=== PATIENT | male | born 1955 | race Caucasian/White ===

== ENCOUNTER 2023-07-22 09:26 | Inpatient (IN) | payer OTHER, SELFPAY ==
[2023-07-22] VITALS (21 sets, daily range): BP systolic 139–156; BP diastolic 57–87; PULSE 94–122; RESP 13–23; TEMP 36.3–36.7; O2SAT 91–96; BMI 35.1
--- NOTE | 2023-07-22 09:32 | XR_ITS ---
[place] [id number] Patient Name: DEMARCUS CALDERON MRN: [id number] date: 1955 Sex: M Assigned Patient Location: ER Current Patient Location: ER Accession/Order Number: [id number] Exam Date: 07/22/2023 09:36 Report Date: 07/22/2023 09:55 At the request of: CELIA ROJAS Procedure: XR chest 1V EXAM: XR chest 1V HISTORY: sob COMPARISON: CT chest 02/18/2018 TECHNIQUE: AP upright chest x-ray FINDINGS: Lungs are clear without infiltrate or edema. Heart size magnified within normal limits for technique. No pleural effusion or pneumothorax. XR/XR chest 1V IMPRESSION: Negative chest x-ray, no acute disease. Electronically authenticated by: MELISSA CONRAD Date: 07/22/2023 09:55
--- NOTE | 2023-07-22 09:32 | ECG_ITS ---
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
[2023-07-22 10:00] LABS: Basophils Absolute Auto 0.1 10^3/uL (0.0-0.1); Eosinophils Percent Auto 14.4 % (0.9-7.0); Hematocrit 42.4 % (42.0-54.0); Hemoglobin 14.6 g/dL (14.0-18.0); Immature Granulocytes Abs Auto 0.01 10^3/uL (0.00-0.03); Immature Granulocytes Pct Auto 0.1 % (0.0-0.5); Lymphocytes Absolute Auto 1.6 10^3/uL (1.2-3.8); Lymphocytes Percent Auto 22.2 % (20.5-60.0); Mean Corpuscular HGB Conc 34.4 g/dL (29.9-35.2); Mean Corpuscular Volume 87.2 fL (80.0-94.0); Mean Platelet Volume 9.8 fL (9.5-13.5); Monocytes Absolute Auto 0.6 10^3/uL (0.3-0.8); Monocytes Percent Auto 9.1 % (1.7-12.0); Neutrophils Absolute Auto 3.8 10^3/uL (1.4-6.5); Neutrophils Percent Auto 53.2 % (43.0-75.0); Platelet Count 184 10^3/uL (150-450); Red Blood Count 4.86 10^6/uL (4.70-6.10); Red Cell Distribution Width 13.5 % (11.0-15.0); White Blood Count 7.1 10^3/uL (4.0-11.0)
--- NOTE | 2023-07-22 10:06 | ED.SOB1 ---
HPI - SOB/Dyspnea General Chief Complaint: Shortness of Breath/Dyspnea Stated Complaint: Shortness of Breath Time Seen by Provider: 07/22/23 09:31 Source: patient Mode of arrival: Wheelchair Limitations: no limitations History of Present Illness HPI Narrative: The patient presented to us with shortness of breath that has been longstanding at least for the last couple weeks the patient mentioned that since April he has been on prednisone as well as antibiotic multiple times for shortness of breath and exertion, the patient does have a history of COPD as well as history of coronary artery disease s/p multiple stents, he denies any chest pain at any time he mentioned that he has been having some significant sputum production, in addition to shortness of breath on exertion and his shortness of breath also will get worse when he lay back to sleep. The patient denies any acid reflux although he did mention that he have a history of that but he take Protonix 20 mg daily as a prophylaxis.. There is no abdominal pain no fever no chills no exposure to anybody with similar symptoms. Related Data Home Medications Medication Instructions Recorded Confirmed carvedilol 6.25 mg tablet 6.25 mg PO Q12H 07/22/23 07/22/23 losartan 50 mg tablet 50 mg PO Q24H 07/22/23 07/22/23 omeprazole 20 mg capsule,delayed 20 mg PO Q24H 07/22/23 07/22/23 release tamsulosin 0.4 mg capsule 0.4 mg PO Q24H 07/22/23 07/22/23 Allergies Allergy/AdvReac Type Severity Reaction Status Date / Time codine AdvReac Intermediate Uncoded 07/22/23 09:34 Review of Systems ROS Status of ROS 10 or more systems reviewed and unremarkable except as noted in history and below [facility] Social History Smoking status: Former smoker Exam Narrative Exam Narrative: Nurses notes and vital signs reviewed and patient is not hypoxic. General: Well-appearing and in no apparent distress. Skin: Warm, dry, no pallor noted. No rash. Head: Normocephalic, atraumatic. Neck: Supple, non-tender. Eye: Pupils are equal, round and EOMI. No scleral icterus. Ears, Nose, Mouth, and Throat: TM are clear, no nasal mucosal hypertrophy. Oral mucosa is moist, no posterior oropharynx erythema, uvula is mid-line Cardiovascular: Regular Rate and Rhythm without murmur, gallop or rub. Respiratory: The patient is showing mild distress leaning forward but not using accessory muscles and he also had rhonchi heard in both lung chavarria and distant breathing sounds. With a wet cough. Chest Wall: no tenderness Back: No midline thoracic or lumbar vertebral tenderness. No CVA tenderness Musculoskeletal: normal ROM, no calf or popliteal tenderness, no lower extremity edema/swelling GI: Abdomen is soft, non-distended. Normal bowel sounds. No masses appreciated. No tenderness to palpation. No rebound, guarding, or rigidity noted. Neurological: A&O x4. No cranial nerve dysfunction observed. No truncal ataxia. Moves all extremities. Sensation intact. Psychiatric: Cooperative and interactive. Normal mood and affect. Constitutional Vital Signs, click to edit/add: Last Vital Signs Temp 97.4 F L 07/22/23 09:34 Pulse 102 H 07/22/23 10:50 Resp 18 07/22/23 10:50 BP 139/83 07/22/23 10:47 Pulse Ox 92 L 07/22/23 10:50 O2 Del Method Room Air 07/22/23 09:34 Course Vital Signs Vital signs: Vital Signs Temperature 97.4 F L 07/22/23 09:34 Pulse Rate 99 H 07/22/23 09:34 Respiratory Rate 22 07/22/23 09:34 Blood Pressure 147/86 H 07/22/23 09:34 Pulse Oximetry 93 L 07/22/23 09:34 Oxygen Delivery Method Room Air 07/22/23 09:34 Temperature 97.4 F L 07/22/23 09:34 Pulse Rate 102 H 07/22/23 10:50 Respiratory Rate 18 07/22/23 10:50 Blood Pressure 139/83 07/22/23 10:47 Pulse Oximetry 92 L 07/22/23 10:50 Oxygen Delivery Method Room Air 07/22/23 09:34 MDM - SOB/Dyspnea MDM Narrative Medical decision making narrative: The patient EKG showing sinus rhythm with a heart rate of [address] elevation or depression. The patient chest x-ray showed no acute pathology and the CBC and chemistry as well as troponin shows no acute pathology as well. CT chest obtained shows fibrosis but no infiltrate, The patient has been treated with p.o. medication [id number] prednisone as well as azithromycin and doxycycline the patient will be admitted for further evaluation of COPD management and IV steroid treatment as he failed outpatient treatment The patient case discussed with and she agreed with above-mentioned plan Lab Data Labs: Lab Results 07/22/23 Range/Units 09:51 WBC 7.1 (4.0-11.0) 10^3/uL RBC 4.86 (4.70-6.10) 10^6/uL Hgb 14.6 (14.0-18.0) g/dL Hct 42.4 (42.0-54.0) % MCV 87.2 (80.0-94.0) fL MCH 30.0 (25.9-34.0) pg MCHC 34.4 (29.9-35.2) g/dL RDW 13.5 (11.0-15.0) % Plt Count 184 (150-450) 10^3/uL MPV 9.8 (9.5-13.5) fL Neut % (Auto) 53.2 (43.0-75.0) % Lymph % (Auto) 22.2 (20.5-60.0) % [place] % (Auto) 9.1 (1.7-12.0) % Eos % (Auto) 14.4 H (0.9-7.0) % Baso % (Auto) 1.0 (0.2-2.0) % Neut # (Auto) 3.8 (1.4-6.5) 10^3/uL Lymph # (Auto) 1.6 (1.2-3.8) 10^3/uL [place] # (Auto) 0.6 (0.3-0.8) 10^3/uL Eos # (Auto) 1.0 H (0.0-0.7) 10^3/uL Baso # (Auto) 0.1 (0.0-0.1) 10^3/uL Abs Immat Gran (auto) 0.01 (0.00-0.03) 10^3/uL Imm/Tot Granulo (auto) 0.1 (0.0-0.5) % PT 10.8 (9.0-11.6) sec INR 1.02 Sodium 137 (136-145) mmol/L Potassium 4.3 (3.5-5.1) mmol/L Chloride 102 (98-107) mmol/L Carbon Dioxide 25.5 (21.0-32.0) mmol/L Anion Gap 13.8 BUN 11.0 (7.0-18.0) mg/dL Creatinine 1.11 (0.70-1.30) mg/dL Est GFR ( Amer) >60 (>=60) Est GFR (Non-Af Amer) >60 (>=60) BUN/Creatinine Ratio 9.9 Glucose 114 H (74-106) mg/dL Calcium 8.9 (8.5-10.1) mg/dL Total Bilirubin 0.6 (0.2-1.0) mg/dL AST 34 (15-37) U/L ALT 48 (16-63) U/L Alkaline Phosphatase 63 (46-116) U/L Troponin I High Sens 28.0 (4.0-76.1) pg/mL NT-Pro-B Natriuret Pep 305.0 (<=900.0) pg/mL Total Protein 7.3 (6.4-8.2) g/dL Albumin 3.8 (3.4-5.0) g/dL Globulin 3.5 g/dL Albumin/Globulin Ratio 1.1 Discharge Plan Discharge Chief Complaint: Shortness of Breath/Dyspnea Clinical Impression: Acute exacerbation of chronic obstructive pulmonary disease Patient Disposition: Admitted as Observation Time of Disposition Decision: 12:04 Condition: Good
--- NOTE | 2023-07-22 10:11 | CT_ITS ---
The [address] [address] Patient Name: DEMARCUS CALDERON MRN: [id number] date: 1955 Sex: M Assigned Patient Location: ER Current Patient Location: ER Accession/Order Number: [id number] Exam Date: 07/22/2023 10:40 Report Date: 07/22/2023 11:31 At the request of: CELIA ROJAS Procedure: CT chest wo con EXAM: CT chest wo con HISTORY: sob and cough COMPARISON: Chest x-ray 07/22/2023. CT chest 02/18/2018 and earlier. TECHNIQUE: CT chest noncontrast. Axial scans with reformatted coronal and sagittal images. Individualized dose reduction views for this exam. FINDINGS: Lungs: Peripheral interstitial density noted prominent the right upper and mid chest and at the lung bases. Mild progression since previous.. No consolidation or edema or other new/acute process. No suspicious focal lung lesion/mass. pleura: No effusion or pneumothorax. Cardiac vascular: High-density coronary material consistent with stents and/or plaque. Heart size within normal limits. Pericardial thickening anteriorly. No pericardial effusion. Mediastinum: No mass or adenopathy. No lower neck or axillary mass or adenopathy. No acute upper abdominal abnormality. CT/CT chest wo con IMPRESSION: No acute appearing abnormality. Interstitial lung density with mild progression since previous most consistent with areas of mild fibrosis. Electronically authenticated by: MEILSSA CONRAD Date: 07/22/2023 11:31
[2023-07-22 10:12] LABS: INR 1.02; Prothrombin Time 10.8 sec (9.0-11.6)
[2023-07-22] MEDS: IPRATROPIUM/ALBUTEROL SULFATE 3 ML AMPUL.NEB IH ×4 (10:17→23:24)
[2023-07-22 10:18] LABS: Alanine Aminotransferase 48 U/L (16-63); Albumin Globulin Ratio 1.1; Albumin Level 3.8 g/dL (3.4-5.0); Alkaline Phosphatase 63 U/L (46-116); Anion Gap 13.8; Aspartate Amino Transferase 34 U/L (15-37); BUN Creatinine Ratio 9.9; Bilirubin Total 0.6 mg/dL (0.2-1.0); Calcium 8.9 mg/dL (8.5-10.1); Carbon Dioxide 25.5 mmol/L (21.0-32.0); Chloride 102 mmol/L (98-107); Estimated GFR (African America >60 (>=60); Estimated GFR (Non-African Ame >60 (>=60); Globulin 3.5 g/dL; Glucose 114 mg/dL (74-106); Potassium 4.3 mmol/L (3.5-5.1); Sodium 137 mmol/L (136-145); Total Protein 7.3 g/dL (6.4-8.2)
[2023-07-22] MEDS: METHYLPREDNISOLONE SOD SUCC PF 125 MG/2 ML VIAL IVP (10:23)
[2023-07-22 11:09] LABS: Adenovirus NOT DETECTED (NOT DETECTE); Bordetella parapertussis NOT DETECTED (NOT DETECTE); Coronavirus 229E NOT DETECTED (NOT DETECTE); Coronavirus HKU1 NOT DETECTED (NOT DETECTE); Coronavirus NL63 NOT DETECTED (NOT DETECTE); Coronavirus OC43 NOT DETECTED (NOT DETECTE); Human Rhinovirus/Enterovirus NOT DETECTED (NOT DETECTE); Influenza A NOT DETECTED (NOT DETECTE); Influenza B NOT DETECTED (NOT DETECTE); Mycoplasma pneumoniae NOT DETECTED (NOT DETECTE); Parainfluenza Virus 1 NOT DETECTED (NOT DETECTE); Parainfluenza Virus 2 NOT DETECTED (NOT DETECTE); Parainfluenza Virus 3 NOT DETECTED (NOT DETECTE); Parainfluenza Virus 4 NOT DETECTED (NOT DETECTE); Respiratory Syncytial Virus NOT DETECTED (NOT DETECTE)
[2023-07-22 12:08] LABS: SARS-CoV-2 DETECTED (NOT DETECTE)
[2023-07-22 12:09] LABS: Human Metapneumovirus NOT DETECTED (NOT DETECTE)
--- NOTE | 2023-07-22 12:14 | PM.HP ---
H&P: HPI History of Present Illness Chief complaint: Shortness of Breath COPD EXACERBATION Narrative: patient is a 68-year-old male with past nuchal history of chronic obstructive pulmonary disease, hypertension, GERD, benign prostatic hypertrophy who presents to the hospital over having symptoms more than two weeks. He has been to his primary care physician, urgent care for a cough. He denies any fevers chills, slight shortness of breath because he has increased his nebulizer treatments and has increased using his albuterol inhaler at home. 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 He says he takes albuterol, Advair and Spiriva at home. Over the last few weeks has developed a productive cough to the point where he gets winded because he is coughing so much. He has been tried on oral steroids, doxycycline and azithromycin. He presented to the Emergency Room today because he just could not cough anymore. Patient's viral culture was positive for Covid. Patient was admitted for viral illness with chronic obstructive pulmonary disease exacerbation to the hospitalist service for further treatment. At the time of admission exam his is also present and states that his biggest complaint is his cough. He denies any chest pain, nausea vomiting or diarrhea. Review of Systems ROS Narrative ROS: a complete review of systems were reviewed with patient and are positive as below or listed in History of Chief Complaint. General: no fever, chills, night sweats Head: no headache, trauma, visual changes, nausea or vomiting Skin: no reported rashes, itching or sores Eyes: no blurriness of vision Ears: no reported hearing loss, vertigo, earache, or tinnitus Throat: no sore throat, hoarseness, swelling of neck, or tongue pain Heart: no chest pain Lungs:shortness of breath and cough GI: no diarrhea or vomiting/nausea Urinary: no urinary urgency, frequency or pain Neuro: no numbness or tingling HEM: no bleeding issues or bruising ENDO: no thyroid problems Psych: no anxiety or depression [facility] Medical History (Updated 07/22/23 @ 15:42 by Maria Isabel Adair DO) COPD (chronic obstructive pulmonary disease) ?J44.9 - Chronic obstructive pulmonary disease, unspecified (ICD-10) Bronchitis ?J40 - Bronchitis, not specified as acute or chronic (ICD-10) Emphysema of lung ?J43.9 - Emphysema, unspecified (ICD-10) Heart attack ?I21.9 - Acute myocardial infarction, unspecified (ICD-10) COPD exacerbation ?J44.1 - Chronic obstructive pulmonary disease with (acute) exacerbation (ICD-10) COVID-19 ?U07.1 - COVID-19 (ICD-10) Surgical History H/O heart artery stent ?Z95.5 - Presence of coronary angioplasty implant and graft (ICD-10) Family History Other Family history of cancer Social History Smoking status: Former smoker Highest level of school completed/degree received: high school graduate Meds Home Medications and Allergies Home Medications Medication Instructions Recorded Confirmed Type carvedilol 6.25 mg tablet 6.25 mg PO Q12H 07/22/23 07/22/23 History losartan 50 mg tablet 50 mg PO Q24H 07/22/23 07/22/23 History omeprazole 20 mg capsule,delayed 20 mg PO Q24H 07/22/23 07/22/23 History release tamsulosin 0.4 mg capsule 0.4 mg PO Q24H 07/22/23 07/22/23 History Allergies Allergy/AdvReac Type Severity Reaction Status Date / Time codine AdvReac Intermediate Uncoded 07/22/23 13:05 Exam Narrative Exam Narrative: General: Patient is alert, and oriented to person, place and time with normal affect, proper hygiene, central obesity Skin: no visible rashes, or ulcers Head: atraumatic, acephalic Eyes: PERRLA, no nystagmus present, conjunctiva clear, no scleral icterus Ears: normal gross auditory acuity Nose: symmetric, no discharge, no maxillary or frontal sinus tenderness Mouth/Throat: no erythema, exudate, or tonsillar enlargement, normal dentition Neck: no masses palpated, normal thyroid Heart: Normal rate and rhythm, no murmurs/rubs/gallops Lungs: audible wheezes, and crackles and diminished breath sounds all lung chavarria Abdomen: Normal audible bowel sounds, no distension, No palpable masses, no organomegaly, no rebound/guarding/ or rigidity Musculoskeletal: no swelling bilateral lower extremities Vascular: Normal carotid, radial, femoral, posterior tibial, and dorsalis pedis pulses Neuro: CN II-X grossly intact Constitutional Vital Signs, click to edit/add: Last Vital Signs Temp 97.4 F L 07/22/23 09:34 Pulse 102 H 07/22/23 10:50 Resp 18 07/22/23 10:50 BP 139/83 07/22/23 10:47 Pulse Ox 92 L 07/22/23 10:50 O2 Del Method Room Air 07/22/23 09:34 Results Labs Labs: Short CBC 07/22/23 Range/Units 09:51 WBC 7.1 (4.0-11.0) 10^3/uL Hgb 14.6 (14.0-18.0) g/dL Hct 42.4 (42.0-54.0) % Plt Count 184 (150-450) 10^3/uL BMP 07/22/23 09:51 Sodium 137 Potassium 4.3 Chloride 102 Carbon Dioxide 25.5 BUN 11.0 Creatinine 1.11 Glucose 114 H Calcium 8.9 Liver Function 07/22/23 Range/Units 09:51 Total Bilirubin 0.6 (0.2-1.0) mg/dL AST 34 (15-37) U/L ALT 48 (16-63) U/L Alkaline Phosphatase 63 (46-116) U/L Albumin 3.8 (3.4-5.0) g/dL Assessment and Plan Assessment and Plan (1) COVID-19: Assessment and Plan: patient at this time is not requiring oxygen but is placed on telemetry. Given loading dose of Remdesivir 200 mg daily and will continue with 100 mg daily. (2) Acute exacerbation of chronic obstructive pulmonary disease: Assessment and Plan: secondary to #1, will place on Solu-Medrol 40 mg every 8 hours, scheduled DuoNeb this, scheduled budesonide twice a day, when necessary albuterol nebulizer treatments. Levaquin 500 mg daily.chest x-ray negative for acute pneumonia. (3) Hypertension: Assessment and Plan: continue losartan, Coreg (4) GERD (gastroesophageal reflux disease): Assessment and Plan: continue omeprazole Plan patient is a full code Will place on Lovenox for deep vein thrombosis prophylaxis Patient is in observation status and is not expected to cross more than two midnights for medically necessary hospital treatment
[2023-07-22] MEDS: LEVOFLOXACIN IN DEXTROSE 5 % 500 MG/100 ML PIGGYBACK 100 MG IV (14:40)
[2023-07-22] MEDS: 0.9 % SODIUM CHLORIDE 250 ML 10 ML IV (14:40)
[2023-07-22] MEDS: BENZONATATE 100 MG CAPSULE 200 MG PO ×2 (16:09→23:34)
[2023-07-22] MEDS: REMDESIVIR 200 MG in 0.9 % SODIUM CHLORIDE 250 ML 250 MG IV (16:09)
[2023-07-22] MEDS: ENOXAPARIN SODIUM 40 MG/0.4 ML SYRINGE SUBQ (17:26)
[2023-07-22] MEDS: METHYLPREDNISOLONE SOD SUCC PF 40 MG/ML VIAL IVP (17:26)
[2023-07-22] MEDS: CARVEDILOL 6.25 MG TABLET PO (20:46)
[2023-07-22] MEDS: BUDESONIDE 0.5 MG/2 ML AMPULE NEB IH (23:24)
[2023-07-23] VITALS (25 sets, daily range): BP systolic 150–173; BP diastolic 82–92; PULSE 70–111; RESP 18–20; TEMP 36.5–36.7; O2SAT 86–98
[2023-07-23] MEDS: METHYLPREDNISOLONE SOD SUCC PF 40 MG/ML VIAL IVP ×3 (02:30→17:22)
[2023-07-23] MEDS: IPRATROPIUM/ALBUTEROL SULFATE 3 ML AMPUL.NEB IH ×6 (03:57→23:13)
[2023-07-23 05:19] LABS: Basophils Percent Auto 0.1 % (0.2-2.0); Hematocrit 41.4 % (42.0-54.0); Hemoglobin 13.9 g/dL (14.0-18.0); Immature Granulocytes Abs Auto 0.05 10^3/uL (0.00-0.03); Immature Granulocytes Pct Auto 0.4 % (0.0-0.5); Lymphocytes Absolute Auto 1.1 10^3/uL (1.2-3.8); Lymphocytes Percent Auto 8.6 % (20.5-60.0); Mean Corpuscular HGB Conc 33.6 g/dL (29.9-35.2); Mean Corpuscular Hemoglobin 29.6 pg (25.9-34.0); Mean Corpuscular Volume 88.3 fL (80.0-94.0); Mean Platelet Volume 10.4 fL (9.5-13.5); Monocytes Absolute Auto 0.5 10^3/uL (0.3-0.8); Monocytes Percent Auto 3.8 % (1.7-12.0); Neutrophils Absolute Auto 11.4 10^3/uL (1.4-6.5); Neutrophils Percent Auto 87.1 % (43.0-75.0); Platelet Count 203 10^3/uL (150-450); Red Blood Count 4.69 10^6/uL (4.70-6.10); Red Cell Distribution Width 13.8 % (11.0-15.0); White Blood Count 13.1 10^3/uL (4.0-11.0)
[2023-07-23] MEDS: OMEPRAZOLE 20 MG CAPSULE.DR PO (05:31)
[2023-07-23 05:53] LABS: Alanine Aminotransferase 42 U/L (16-63); Albumin Level 3.5 g/dL (3.4-5.0); Alkaline Phosphatase 59 U/L (46-116); Anion Gap 18.2; Aspartate Amino Transferase 28 U/L (15-37); BUN Creatinine Ratio 12.1; Bilirubin Total 0.3 mg/dL (0.2-1.0); Calcium 9.2 mg/dL (8.5-10.1); Carbon Dioxide 22.1 mmol/L (21.0-32.0); Chloride 102 mmol/L (98-107); Estimated GFR (African America >60 (>=60); Estimated GFR (Non-African Ame >60 (>=60); Globulin 3.6 g/dL; Glucose 145 mg/dL (74-106); Potassium 4.3 mmol/L (3.5-5.1); Sodium 138 mmol/L (136-145); Total Protein 7.1 g/dL (6.4-8.2)
--- NOTE | 2023-07-23 07:28 | RESP.RT ---
Plaed on room air. SpO2 maintaining 94-96%
--- NOTE | 2023-07-23 08:47 | PM.PN ---
Progress Note: Subjective Subjective Interval history: patient reports cough is now dry. He denies any fevers but still continues to get some hot flashes at times. Still feels very tight and short of breath with his breathing. He feels slightly improved from yesterday but still struggling for deep breaths. is at bedside at the time of exam this morning she also notes some improvement. No nausea vomiting or diarrhea. New findings of rash in right axilla, he would like something for his nasal congestion he takes Flonase at home. Also sore throat today. Exam Narrative Exam Narrative: General: Patient is alert, and oriented to person, place and time, short of breath with talking Skin: fungal rash under right axilla and center of chest Head: atraumatic, acephalic Eyes: PERRLA, no nystagmus present, conjunctiva clear, no scleral icterus Ears: normal gross auditory acuity Neck: no masses palpated, normal thyroid Heart: Normal rate and rhythm, no murmurs/rubs/gallops Lungs: audible wheezes, and crackles and diminished breath sounds all lung chavarria, sounds worse than yesterday Abdomen: Normal audible bowel sounds, no distension, No palpable masses, no organomegaly, no rebound/guarding/ or rigidity Musculoskeletal: no swelling bilateral lower extremities Neuro: CN II-X grossly intact Constitutional Vital Signs, click to edit/add: Last Vital Signs Temp 97.7 F 07/23/23 06:00 Pulse 101 H 07/23/23 08:00 Resp 20 07/23/23 06:00 BP 160/82 H 07/23/23 06:00 Pulse Ox 95 07/23/23 08:00 O2 Del Method Nasal Cannula 07/23/23 07:06 O2 Flow Rate 2 07/23/23 07:06 Progress Note: Objective Labs Labs: Short CBC 07/22/23 07/23/23 Range/Units 09:51 04:11 WBC 7.1 13.1 H (4.0-11.0) 10^3/uL Hgb 14.6 13.9 L (14.0-18.0) g/dL Hct 42.4 41.4 L (42.0-54.0) % Plt Count 184 203 (150-450) 10^3/uL BMP 07/22/23 07/23/23 09:51 04:11 Sodium 137 138 Potassium 4.3 4.3 Chloride 102 102 Carbon Dioxide 25.5 22.1 BUN 11.0 12.0 Creatinine 1.11 0.99 Glucose 114 H 145 H Calcium 8.9 9.2 Liver Function 07/22/23 07/23/23 Range/Units 09:51 04:11 Total Bilirubin 0.6 0.3 (0.2-1.0) mg/dL AST 34 28 (15-37) U/L ALT 48 42 (16-63) U/L Alkaline Phosphatase 63 59 (46-116) U/L Albumin 3.8 3.5 (3.4-5.0) g/dL Progress Note: A&P Assessment and Plan (1) COVID-19: Assessment and Plan: given Remdesivir 200 mg daily and will continue with 100 mg daily. monitor for signs of worsening respiratory status, duonebs, opep therapy (2) Acute exacerbation of chronic obstructive pulmonary disease: Assessment and Plan: secondary to #1, will place on Solu-Medrol 40 mg every 8 hours, scheduled DuoNeb this, scheduled budesonide twice a day, when necessary albuterol nebulizer treatments. Levaquin 500 mg daily.chest x-ray negative for acute pneumonia. (3) Hypertension: Assessment and Plan: continue losartan, Coreg (4) GERD (gastroesophageal reflux disease): Assessment and Plan: continue omeprazole Plan patient is a full code Will place on Lovenox for deep vein thrombosis prophylaxis Given that patient is not improving clinically as fast as anticipated he will stay tonight for continued medical necessary care.
[2023-07-23] MEDS: LOSARTAN POTASSIUM 50 MG TABLET PO (08:52)
[2023-07-23] MEDS: LEVOFLOXACIN IN DEXTROSE 5 % 500 MG/100 ML PIGGYBACK 100 MG IV (08:52)
[2023-07-23] MEDS: BENZONATATE 100 MG CAPSULE 200 MG PO ×2 (08:52→16:39)
[2023-07-23] MEDS: CARVEDILOL 6.25 MG TABLET PO ×2 (08:52→20:27)
[2023-07-23] MEDS: TAMSULOSIN HCL 0.4 MG CAPSULE 0.400000000000000022 MG PO (08:52)
--- NOTE | 2023-07-23 08:52 | XR_ITS ---
[address] [address] Patient Name: DEMARCUS CALDERON MRN: [id number] date: 1955 Sex: M Assigned Patient Location: [place] Current Patient Location: [place] Accession/Order Number: [id number] Exam Date: 07/23/2023 08:45 Report Date: 07/23/2023 09:41 At the request of: BENJY MCKEON Procedure: XR chest 1V EXAM: XR chest 1V HISTORY: shortness of breath COMPARISON: None. TECHNIQUE: AP view of the chest. FINDINGS: The cardiomediastinal silhouette is normal. The lungs are clear. There is no pneumothorax. No pleural effusion is noted. The osseous structures are intact. XR/XR chest 1V IMPRESSION: No acute cardiopulmonary process. Electronically authenticated by: AKIN PERLA Date: 07/23/2023 09:41
[2023-07-23] MEDS: BUDESONIDE 0.5 MG/2 ML AMPULE NEB IH ×2 (10:18→23:13)
--- NOTE | 2023-07-23 11:45 | CM.NOTE ---
Rounds made with Dr. Adair, no discharge for pt today.
--- NOTE | 2023-07-23 14:57 | CM.NOTE ---
Medicare Outpatient Observation Notice discussed with pt and , both verbalizes understanding. Pt requests to sign. Paper signed, original given to pt and copy placed on pt's chart.
[2023-07-23] MEDS: FLUTICASONE PROPIONATE 50 MCG NASAL SPRAY 2 SPRAY NS (15:26)
[2023-07-23] MEDS: BENZOCAINE/MENTHOL SORE THROAT LOZENGE 1 LOZENGE PO (15:26)
[2023-07-23] MEDS: 0.9 % SODIUM CHLORIDE 250 ML 10 ML IV (15:26)
[2023-07-23] MEDS: NYSTATIN 100,000 UNITS/GRAM CREAM 15 GM TUBE 1 APPLIC TOPICAL ×2 (16:38→20:27)
[2023-07-23] MEDS: ENOXAPARIN SODIUM 40 MG/0.4 ML SYRINGE SUBQ (16:39)
[2023-07-23] MEDS: REMDESIVIR 100 MG in 0.9 % SODIUM CHLORIDE 100 ML 200 MG IV (16:39)
[2023-07-24] VITALS (23 sets, daily range): BP systolic 135–175; BP diastolic 71–110; PULSE 52–112; RESP 16–22; TEMP 36.3–36.8; O2SAT 90–95
[2023-07-24] MEDS: BENZONATATE 100 MG CAPSULE 200 MG PO ×3 (01:09→16:18)
[2023-07-24] MEDS: METHYLPREDNISOLONE SOD SUCC PF 40 MG/ML VIAL IVP ×3 (01:09→18:39)
[2023-07-24] MEDS: IPRATROPIUM/ALBUTEROL SULFATE 3 ML AMPUL.NEB IH ×6 (03:55→22:53)
[2023-07-24 05:22] LABS: Basophils Percent Auto 0.1 % (0.2-2.0); Eosinophils Percent Auto 0.1 % (0.9-7.0); Hematocrit 43.2 % (42.0-54.0); Hemoglobin 14.2 g/dL (14.0-18.0); Immature Granulocytes Pct Auto 0.6 % (0.0-0.5); Lymphocytes Absolute Auto 1.2 10^3/uL (1.2-3.8); Lymphocytes Percent Auto 7.2 % (20.5-60.0); Mean Corpuscular HGB Conc 32.9 g/dL (29.9-35.2); Mean Corpuscular Hemoglobin 29.3 pg (25.9-34.0); Mean Corpuscular Volume 89.3 fL (80.0-94.0); Mean Platelet Volume 10.5 fL (9.5-13.5); Monocytes Absolute Auto 0.8 10^3/uL (0.3-0.8); Neutrophils Absolute Auto 14.5 10^3/uL (1.4-6.5); Platelet Count 191 10^3/uL (150-450); Red Blood Count 4.84 10^6/uL (4.70-6.10); Red Cell Distribution Width 14.1 % (11.0-15.0); White Blood Count 16.7 10^3/uL (4.0-11.0)
[2023-07-24 05:42] LABS: Alanine Aminotransferase 40 U/L (16-63); Albumin Level 3.5 g/dL (3.4-5.0); Alkaline Phosphatase 60 U/L (46-116); Anion Gap 14.5; Aspartate Amino Transferase 37 U/L (15-37); BUN Creatinine Ratio 15.3; Bilirubin Total 0.3 mg/dL (0.2-1.0); Calcium 9.5 mg/dL (8.5-10.1); Carbon Dioxide 24.8 mmol/L (21.0-32.0); Chloride 102 mmol/L (98-107); Estimated GFR (African America >60 (>=60); Estimated GFR (Non-African Ame >60 (>=60); Globulin 3.4 g/dL; Glucose 153 mg/dL (74-106); Magnesium 2.3 mg/dL (1.8-2.4); Potassium 4.3 mmol/L (3.5-5.1); Sodium 137 mmol/L (136-145); Total Protein 6.9 g/dL (6.4-8.2)
[2023-07-24] MEDS: OMEPRAZOLE 20 MG CAPSULE.DR PO (06:03)
--- NOTE | 2023-07-24 09:07 | PM.DS1 ---
DS: Providers Provider Date of admission: 07/22/23 12:27 Primary care physician: SERA FLOWER DS: Diagnosis Discharge Diagnosis (1) COVID-19: (2) Acute exacerbation of chronic obstructive pulmonary disease: (3) Hypertension: (4) GERD (gastroesophageal reflux disease): DS: Summary Time Spent with Patient Time attestation: Total time spent providing and/or coordinating discharge services: Exam Constitutional Vital Signs, click to edit/add: Last Vital Signs Temp 97.6 F 07/24/23 04:22 Pulse 98 H 07/24/23 07:58 Resp 18 07/24/23 04:22 BP 135/71 07/24/23 04:22 Pulse Ox 95 07/24/23 07:58 O2 Del Method Room Air 07/24/23 07:05 O2 Flow Rate 2 07/23/23 07:06 DS: Data Data Completed and Pending Labs on day of discharge: Labs from last 24 hours 07/24/23 04:42 WBC 16.7 H RBC 4.84 Hgb 14.2 Hct 43.2 MCV 89.3 MCH 29.3 MCHC 32.9 RDW 14.1 Plt Count 191 MPV 10.5 Neut % (Auto) 87.0 H Lymph % (Auto) 7.2 L [place] % (Auto) 5.0 Eos % (Auto) 0.1 L Baso % (Auto) 0.1 L Neut # (Auto) 14.5 H Lymph # (Auto) 1.2 [place] # (Auto) 0.8 Eos # (Auto) 0.0 Baso # (Auto) 0.0 Abs Immat Gran (auto) 0.10 H Imm/Tot Granulo (auto) 0.6 H Sodium 137 Potassium 4.3 Chloride 102 Carbon Dioxide 24.8 Anion Gap 14.5 BUN 15.0 Creatinine 0.98 Est GFR ( Amer) >60 Est GFR (Non-Af Amer) >60 BUN/Creatinine Ratio 15.3 Glucose 153 H Calcium 9.5 Magnesium 2.3 Total Bilirubin 0.3 AST 37 ALT 40 Alkaline Phosphatase 60 Total Protein 6.9 Albumin 3.5 Globulin 3.4 Albumin/Globulin Ratio 1.0 Discharge Plan Discharge Condition: Good Discharge Medications: No Action tamsulosin 0.4 mg capsule 0.4 mg PO Q24H carvedilol 6.25 mg tablet 6.25 mg PO Q12H losartan 50 mg tablet 50 mg PO Q24H omeprazole 20 mg capsule,delayed release(DR/EC) 20 mg PO Q24H albuterol sulfate 90 mcg/actuation HFA aerosol inhaler 2 puff INHALATION Q6H PRN (Reason: shortness of breath) Rx Instructions: 2 puffs every 6 hours as needed fluticasone propion-salmeterol [Advair HFA] 115-21 mcg/actuation HFA aerosol inhaler 2 puff INHALATION Q12H Spiriva Respimat 2.5 mcg/actuation mist 2 puff INHALATION Q24H
[2023-07-24] MEDS: BUDESONIDE 0.5 MG/2 ML AMPULE NEB IH ×2 (10:05→22:53)
[2023-07-24] MEDS: TAMSULOSIN HCL 0.4 MG CAPSULE 0.400000000000000022 MG PO (10:48)
[2023-07-24] MEDS: LOSARTAN POTASSIUM 50 MG TABLET PO (10:48)
[2023-07-24] MEDS: LEVOFLOXACIN IN DEXTROSE 5 % 500 MG/100 ML PIGGYBACK 100 MG IV (10:48)
[2023-07-24] MEDS: BENZOCAINE/MENTHOL SORE THROAT LOZENGE 1 LOZENGE PO ×2 (10:49→16:18)
[2023-07-24] MEDS: CARVEDILOL 6.25 MG TABLET PO ×2 (10:49→21:39)
[2023-07-24] MEDS: FLUTICASONE PROPIONATE 50 MCG NASAL SPRAY 2 SPRAY NS (10:49)
[2023-07-24] MEDS: NYSTATIN 100,000 UNITS/GRAM CREAM 15 GM TUBE 1 APPLIC TOPICAL ×2 (10:50→21:39)
--- NOTE | 2023-07-24 11:33 | CM.NOTE ---
Rounds made with Dr. Adair, going to infuse 2gm Mag today. Dr. Adair will assess pt this afternoon for possible discharge to home.
[2023-07-24] MEDS: MAGNESIUM SULFATE IN WATER 2 GM/50 ML PREMIX IV (12:23)
--- NOTE | 2023-07-24 14:26 | P.PN_ITS ---
Progress Note: Subjective Subjective Interval history: He denies any fevers but still having shortness of breath. He feels slightly improved from yesterday but still struggling for deep breaths and coughing. is at bedside at the time of exam this morning she also notes some improvement. No nausea vomiting or diarrhea. Exam Narrative Exam Narrative: General: Patient is alert, and oriented to person, place and time with normal affect, proper hygiene Head: atraumatic, acephalic Eyes: PERRLA, no nystagmus present, conjunctiva clear, no scleral icterus Ears: normal gross auditory acuity Heart: Normal rate and rhythm, no murmurs/rubs/gallops Lungs: audible wheezes, crackles and diminished breath sounds all lung chavarria Abdomen: Normal audible bowel sounds, no distension, No palpable masses, no organomegaly, no rebound/guarding/ or rigidity Musculoskeletal: no swelling bilateral lower extremities Neuro: CN II-X grossly intact Constitutional Vital Signs, click to edit/add: Last Vital Signs Temp 98.2 F 07/24/23 11:00 Pulse 94 H 07/24/23 13:50 Resp 20 07/24/23 11:00 BP 155/90 H 07/24/23 11:00 Pulse Ox 94 L 07/24/23 13:50 O2 Del Method Room Air 07/24/23 11:00 O2 Flow Rate 2 07/23/23 07:06 Progress Note: Objective Labs Labs: Short CBC 07/24/23 Range/Units 04:42 WBC 16.7 H (4.0-11.0) 10^3/uL Hgb 14.2 (14.0-18.0) g/dL Hct 43.2 (42.0-54.0) % Plt Count 191 (150-450) 10^3/uL BMP 07/24/23 04:42 Sodium 137 Potassium 4.3 Chloride 102 Carbon Dioxide 24.8 BUN 15.0 Creatinine 0.98 Glucose 153 H Calcium 9.5 Liver Function 07/24/23 Range/Units 04:42 Total Bilirubin 0.3 (0.2-1.0) mg/dL AST 37 (15-37) U/L ALT 40 (16-63) U/L Alkaline Phosphatase 60 (46-116) U/L Albumin 3.5 (3.4-5.0) g/dL Progress Note: A&P Assessment and Plan (1) COVID-19: Assessment and Plan: continue with 100 mg remdesivir daily. monitor for signs of worsening respiratory status, duonebs, opep therapy (2) Acute exacerbation of chronic obstructive pulmonary disease: Assessment and Plan: secondary to #1, on Solu-Medrol 40 mg every 8 hours, scheduled DuoNeb, scheduled budesonide twice a day, when necessary albuterol nebulizer treatments. Levaquin 500 mg daily.chest x-ray negative for acute pneumonia. repeat chest X- ray today, given 2 grams of IV mag (3) Hypertension: Assessment and Plan: continue losartan, Coreg (4) GERD (gastroesophageal reflux disease): Assessment and Plan: continue omeprazole Plan patient is a full code Will place on Lovenox for deep vein thrombosis prophylaxis Given that patient is not improving clinically as fast as anticipated he will stay tonight for continued medical necessary care.
--- NOTE | 2023-07-24 15:23 | XR_ITS ---
The [address] [address] Patient Name: DEMARCUS CALDERON MRN: [id number] date: 1955 Sex: M Assigned Patient Location: MS Current Patient Location: [place] Accession/Order Number: [id number] Exam Date: 07/24/2023 15:15 Report Date: 07/24/2023 15:41 At the request of: BENJY MCKEON Procedure: XR chest 1V EXAM: XR chest 1V HISTORY: shortness of breath COMPARISON: 07/23/2023 TECHNIQUE: AP portable erect FINDINGS: LUNGS: Mild right basilar infiltrate obscuring the hemidiaphragm. VASCULATURE: No increased pulmonary vasculature. PLEURA: No pneumothorax, effusion, or pleural thickening. CARDIAC: No cardiomegaly or cardiac silhouette abnormality. MEDIASTINUM: No visible mass or adenopathy. BONES: No fracture or visible bone lesion. OTHER: Negative. XR/XR chest 1V IMPRESSION: Mild right basilar infiltrate Electronically authenticated by: REZA NOLAN Date: 07/24/2023 15:41
[2023-07-24] MEDS: POLYETHYLENE GLYCOL 3350 17 GM POWDER PACKET PO (16:17)
[2023-07-24] MEDS: ENOXAPARIN SODIUM 40 MG/0.4 ML SYRINGE SUBQ (16:17)
[2023-07-24] MEDS: REMDESIVIR 100 MG in 0.9 % SODIUM CHLORIDE 100 ML 200 MG IV (16:18)
[2023-07-24] MEDS: 0.9 % SODIUM CHLORIDE 250 ML 10 ML IV (16:18)
[2023-07-25] VITALS (12 sets, daily range): BP systolic 151–172; BP diastolic 80–97; PULSE 78–98; RESP 18–20; TEMP 36.3–36.4; O2SAT 91–100
[2023-07-25] MEDS: BENZONATATE 100 MG CAPSULE 200 MG PO ×2 (01:31→08:37)
[2023-07-25] MEDS: METHYLPREDNISOLONE SOD SUCC PF 40 MG/ML VIAL IVP ×2 (01:31→09:00)
[2023-07-25] MEDS: IPRATROPIUM/ALBUTEROL SULFATE 3 ML AMPUL.NEB IH ×3 (03:53→10:03)
[2023-07-25] MEDS: OMEPRAZOLE 20 MG CAPSULE.DR PO (05:36)
[2023-07-25 05:45] LABS: Basophils Percent Auto 0.1 % (0.2-2.0); Hematocrit 42.9 % (42.0-54.0); Hemoglobin 14.2 g/dL (14.0-18.0); Immature Granulocytes Pct Auto 0.8 % (0.0-0.5); Lymphocytes Absolute Auto 1.5 10^3/uL (1.2-3.8); Lymphocytes Percent Auto 11.2 % (20.5-60.0); Mean Corpuscular HGB Conc 33.1 g/dL (29.9-35.2); Mean Corpuscular Hemoglobin 29.3 pg (25.9-34.0); Mean Corpuscular Volume 88.5 fL (80.0-94.0); Mean Platelet Volume 10.6 fL (9.5-13.5); Monocytes Absolute Auto 0.9 10^3/uL (0.3-0.8); Monocytes Percent Auto 6.5 % (1.7-12.0); Neutrophils Absolute Auto 10.6 10^3/uL (1.4-6.5); Neutrophils Percent Auto 81.4 % (43.0-75.0); Platelet Count 197 10^3/uL (150-450); Red Blood Count 4.85 10^6/uL (4.70-6.10); Red Cell Distribution Width 14.1 % (11.0-15.0); White Blood Count 13.1 10^3/uL (4.0-11.0)
[2023-07-25 06:11] LABS: Alanine Aminotransferase 46 U/L (16-63); Albumin Level 3.4 g/dL (3.4-5.0); Alkaline Phosphatase 58 U/L (46-116); Anion Gap 14.3; Aspartate Amino Transferase 29 U/L (15-37); BUN Creatinine Ratio 19.6; Bilirubin Total 0.3 mg/dL (0.2-1.0); Calcium 8.8 mg/dL (8.5-10.1); Carbon Dioxide 26.6 mmol/L (21.0-32.0); Chloride 101 mmol/L (98-107); Estimated GFR (African America >60 (>=60); Estimated GFR (Non-African Ame >60 (>=60); Globulin 3.4 g/dL; Glucose 148 mg/dL (74-106); Potassium 3.9 mmol/L (3.5-5.1); Sodium 138 mmol/L (136-145); Total Protein 6.8 g/dL (6.4-8.2)
[2023-07-25] MEDS: LOSARTAN POTASSIUM 50 MG TABLET PO (08:37)
[2023-07-25] MEDS: TAMSULOSIN HCL 0.4 MG CAPSULE 0.400000000000000022 MG PO (08:37)
[2023-07-25] MEDS: CARVEDILOL 6.25 MG TABLET PO (08:37)
[2023-07-25] MEDS: POLYETHYLENE GLYCOL 3350 17 GM POWDER PACKET PO (08:37)
[2023-07-25] MEDS: LEVOFLOXACIN IN DEXTROSE 5 % 500 MG/100 ML PIGGYBACK 100 MG IV (08:37)
[2023-07-25] MEDS: NYSTATIN 100,000 UNITS/GRAM CREAM 15 GM TUBE 1 APPLIC TOPICAL (08:38)
[2023-07-25] MEDS: FLUTICASONE PROPIONATE 50 MCG NASAL SPRAY 2 SPRAY NS (08:38)
[2023-07-25] MEDS: BENZOCAINE/MENTHOL SORE THROAT LOZENGE 1 LOZENGE PO (08:43)
--- NOTE | 2023-07-25 09:08 | P.DS_ITS ---
DS: Providers Provider Date of admission: 07/24/23 17:03 Primary care physician: SERA HOBBS Admitting clinician: Maria Isabel Adair Discharging clinician: Maria Isabel Adair DS: Diagnosis Discharge Diagnosis (1) Pneumonia due to COVID-19 virus: Assessment and plan: new right basiliar infiltrate seen on Chest X-ray (2) COVID-19: (3) Acute exacerbation of chronic obstructive pulmonary disease: (4) Hypertension: (5) GERD (gastroesophageal reflux disease): DS: Summary Hospital Course Hospital Course: patient is a 68-year-old male with past nuchal history of chronic obstructive pulmonary disease, hypertension, GERD, benign prostatic hypertrophy who presents to the hospital over having symptoms more than two weeks. Was seen as outpatient several times and treated. Came to ER for cough, shortness of breath, fatigue. Patient's viral culture was positive for Covid. Chest X-ray positive for right basilar infiltrate. Given loading dose of Remdesivir 200 mg daily and was continued with 100 mg daily for covid treatment. Also placed on Solu-Medrol 40 mg every 8 hours, scheduled DuoNeb this, scheduled budesonide twice a day, when necessary albuterol nebulizer treatments. Levaquin 500 mg IV daily. OPEP therapy. Patient took quite a few days to recover. At the time of discharge, patient is still not at baseline, but is progressing back to baseline. Him and his would like to establish with new ethnic origins teacher and will get him number for Dr. Morgan. He will eventually need PFT s. I have stopped his Advair and placed him on Trelegy. He was instructed to use his nebulizer treatments every 6 hours while awake until sunday. Given Levaquin 750mg daily x 5 days, prednisone 40mg x 7 days, Bromphed for cough and Nystatin for his Axillary yeast rash. He is to follow closely with PCP and return with any worsening symptoms. Patient and agree to discharge today. Status at Discharge Functional status at discharge: independent ambulation Overall status at discharge: patient is progressing back to baseline Time Spent with Patient Time attestation: Total time spent providing and/or coordinating discharge services: Time spent: greater than 30 minutes Exam Narrative Exam Narrative: General: Patient is alert, and oriented to person, place and time with normal affect, proper hygiene Head: atraumatic, acephalic Eyes: PERRLA, no nystagmus present, conjunctiva clear, no scleral icterus Ears: normal gross auditory acuity Heart: Normal rate and rhythm, no murmurs/rubs/gallops Lungs: audible wheezes, crackles and diminished breath sounds all lung chavarria improved since yesterday exam Abdomen: Normal audible bowel sounds, no distension, No palpable masses, no organomegaly, no rebound/guarding/ or rigidity Musculoskeletal: no swelling bilateral lower extremities Neuro: CN II-X grossly intact Constitutional Vital Signs, click to edit/add: Last Vital Signs Temp 97.6 F 07/25/23 08:45 Pulse 95 H 07/25/23 08:45 Resp 20 07/25/23 08:45 BP 166/97 H 07/25/23 08:45 Pulse Ox 92 L 07/25/23 08:45 O2 Del Method Room Air 07/25/23 08:45 O2 Flow Rate 2 07/23/23 07:06 DS: Data Data Completed and Pending Labs on day of discharge: Labs from last 24 hours 07/25/23 04:29 WBC 13.1 H RBC 4.85 Hgb 14.2 Hct 42.9 MCV 88.5 MCH 29.3 MCHC 33.1 RDW 14.1 Plt Count 197 MPV 10.6 Neut % (Auto) 81.4 H Lymph % (Auto) 11.2 L [place] % (Auto) 6.5 Eos % (Auto) 0.0 L Baso % (Auto) 0.1 L Neut # (Auto) 10.6 H Lymph # (Auto) 1.5 [place] # (Auto) 0.9 H Eos # (Auto) 0.0 Baso # (Auto) 0.0 Abs Immat Gran (auto) 0.10 H Imm/Tot Granulo (auto) 0.8 H Sodium 138 Potassium 3.9 Chloride 101 Carbon Dioxide 26.6 Anion Gap 14.3 BUN 18.0 Creatinine 0.92 Est GFR ( Amer) >60 Est GFR (Non-Af Amer) >60 BUN/Creatinine Ratio 19.6 Glucose 148 H Calcium 8.8 Total Bilirubin 0.3 AST 29 ALT 46 Alkaline Phosphatase 58 Total Protein 6.8 Albumin 3.4 Globulin 3.4 Albumin/Globulin Ratio 1.0 Discharge Plan Discharge Disposition: Home, Self-Care Condition: Good Discharge Medications: New nystatin 100,000 unit/gram Cream 1 applic topical BID 10 Days Qty: 30 0RF fluticasone propionate 50 mcg/actuation [place],Suspension 2 spray intranasal QD 30 Days Qty: 3 0RF levofloxacin 750 mg tablet 750 mg PO Q24H 5 Days Qty: 5 0RF Trelegy Ellipta 200-62.5-25 mcg blister with device 1 inh inhalation DAILY 30 Days Qty: 60 0RF prednisone 20 mg tablet 20 mg PO BID 7 Days Qty: 14 0RF [id number] [Bromfed DM] 2-30-10 mg/5 mL syrup 5 ml PO Q6H PRN (Reason: cough) 7 Days Qty: 473 0RF Continued tamsulosin 0.4 mg capsule 0.4 mg PO Q24H carvedilol 6.25 mg tablet 6.25 mg PO Q12H losartan 50 mg tablet 50 mg PO Q24H omeprazole 20 mg capsule,delayed release(DR/EC) 20 mg PO Q24H albuterol sulfate 90 mcg/actuation HFA aerosol inhaler 2 puff INHALATION Q6H PRN (Reason: shortness of breath) Rx Instructions: 2 puffs every 6 hours as needed Discontinued fluticasone propion-salmeterol [Advair HFA] 115-21 mcg/actuation HFA aerosol inhaler 2 puff INHALATION Q12H Spiriva Respimat 2.5 mcg/actuation mist 2 puff INHALATION Q24H Activity: increase activity as tolerated Diet: advance to your usual diet Patient Instructions: COVID-19 (Coronavirus Disease 2019) (DC) Forms: Portal Instructions Follow Up Appointments: July 29 @ 1:30pm with Dr. Hobbs [phone] Dr. Morgan's office (pulmonology) will call to schedule an appt. Discharge Date/Time: 07/25/23 13:30 Discharge location: Home
[2023-07-25] MEDS: BUDESONIDE 0.5 MG/2 ML AMPULE NEB IH (10:03)
--- NOTE | 2023-07-25 12:56 | CM.NOTE ---
Rounds made with Dr. Adair. Plan for discharge today. Will need to follow up with [employer] and PCP next week. Mr. Panchal and verbalize understanding.
--- NOTE | 2023-07-26 14:01 | CM.DCFOLLOWU ---
Person spoke with: Pt's How are you feeling? He is still very tired How is your pain? No pain Did you understand your discharge instructions? Yes Do you have any questions about your discharge instructions? No Were you given any prescriptions at discharge? Yes Were you able to get your prescriptions filled? Everything besides the Trelegy but will pick that up today Do you understand how to take your medications as ordered? Yes Do you have any questions about your follow up appointment and do you plan to keep your follow up appointment? No and also scheduled the one for [facility] and that is August 21 Is there anything else that you would like to discuss? No Questions/Comments/Concerns/Other:
== END 2023-07-25 13:30 | disposition home or self-care (01) | DRG 177 ==
LOC: ER 12:04 → MS 12:36
PROVIDERS: Admitting Provider Family Medicine; Emergency Provider Emergency Medicine; PCP Internal Medicine; Visit Provider Family Medicine
DX: U07.1 COVID-19 (principal); J12.82 Pneumonia due to coronavirus disease 2019; J44.1 Chronic obstructive pulmonary disease with (acute) exacerbation; I10 Essential (primary) hypertension; J43.9 Emphysema, unspecified; K21.9 Gastro-esophageal reflux disease without esophagitis; I25.10 Atherosclerotic heart disease of native coronary artery without angina pectoris; N40.0 Benign prostatic hyperplasia without lower urinary tract symptoms; I25.2 Old myocardial infarction; Z95.5 Presence of coronary angioplasty implant and graft; Z87.891 Personal history of nicotine dependence; Z79.899 Other long term (current) drug therapy; Z88.5 Allergy status to narcotic agent
CPT/HCPCS: 0202U; 36415; 71045; 71250; 80053; 83735; 83880; 84484; 85025; 85610; 93005; 94640; 94667; 94668; 94761; 96365; 96366; 96367; 96372; 96376; 99285; G0378; J0248; J2920; J2930

== ENCOUNTER 2023-08-22 08:31 | Outpatient (OUT) | payer MEDICARE, OTHER, SELFPAY ==
--- OUTSIDE RECORDS SUMMARY | 2023-08-22 08:35 | XMS_ITS | CCD ---
Author Organization [facility] Care Team Providers Care Drugless Doctor Name Role Phone Sera Flower Unavailable Unavailable Unavailable Unavailable Primary Care Provider Unavailabl e Unavailable Unavailable DEANDRA BENDER Attending Unavailable DEANDRA BENDER Referring Unavailable MAU RANDLE Attending Unavailable DEANDRA BENDER Attending Unavailable DEANDRA BENDER Attending Unavailable DEANDRA BENDER Referring Unavailable MD Sera Flower Primary Care Provider MD Sera Flower Other Provider MD Rene Castro Attending Provider Dr. Sera Flower Primary Care Unavailab Rene Nobles Referring Unavailable Dr. Sera Flower Primary Care Unavailab Rene Nobles Attending Unavailable Dr. Sera Flower Primary Care Unavailab Rene Nobles Attending Unavailable Dr. Sera Flower Primary Care Unavailab Rene Nobles Attending Unavailable Sera Flower MD Primary Care Provider [phone] RENE CASTRO Attending Unavailable SERA FOLWER Primary Care Unavailable MD Sera Flower Primary Care Provider [phone] DO Jasper Martinez Emergency Provider [phone] Jasper Martinez Admitting Unavailable Jasper Martinez Attending Unavailable Sera Flower Primary Care Unavailable Rene Castro Attending Unavailable Sera Flower Primary Care Unavailable Sera Flower Consulting Unavailable Rene Castro Admitting Unavailable Sera Flower MD Unavailable Sera Flower MD Primary Care Provider RENZO WEAVER Attending Unavailable SERA FLOWER Referring Unavailable DEBBI BA Attending Unavailable BRITTANY FIGUEROA Attending Unavailable HOSEA SIFUENTES Attending Unavailable SERA FLOWER Attending Unavailable SERA FLOWER Referring Unavailable Allergies Allergy Classification Reported Allergen(s) Allergy Type Date of Onset Reaction(s) Facility (17 sources) Codeine; Translations: [codeine] Drug Allergy 6 Vomiting, Unknown, Nausea And Vomiting, Other [facility] (6 sources) Codeine / guaiFENesin; Translations: [CODEINE-GUAIFEN ESIN] Drug Allergy 1 Other: See Comments [facility] (6 sources) guaiFENesin; Translations: [GUAIFENESIN] Drug Allergy 3 Other: See Comments [facility] (1 source) Codeine Drug Allergy 4 [facility] (2 sources) guaiFENesin Drug Allergy 3 Other [facility] Medications Current Medications Medication Drug Class(es) Dates Sig (Normalized) Sig (Original) albuterol 0.83 mg/ml inhalation solution (14 sources) beta2-Adrenergic Agonist Start: 06-21-2023 albuterol (2.5 MG/3ML) 0.083% nebulizer solution Indications: Chronic obstructive pulmonary disease, unspecified COPD type (CMS/HCC) Take 3 mL (2.5 mg) by nebulization every 8 (eight) hours 75 mL 3 06/21/2023 Active Start: 06-14-2023 take 2.5 mg by inhal ation every four to six hours Albuterol Sulfate Active 2.5 MG INHALATION EVERY 4-6 HOURS June 14, 2023 12:00am Start: 11-07-2021 albuterol HFA (PROVENTIL HFA, VENTOLIN HFA) 90 mcg/actuation inhaler Start: 04-26-2018 End: 07-28-2019 take 2.5 mg by inhalation every four hours Albuterol Sulfate Discontinued 2.5 MG INHALATION Q4H April 26, 2018 12:00am July 28, 2019 6:51am Start: 09-19-2017 take 2.5 mg by inhal ation every six hours Albuterol Sulfate Active 2.5 MG INHALATION Q6H September 18, 2017 11:00pm ascorbic acid 60 mg / beta carotene 5000 unt / copper sulfate 40 mg / dl-alpha tocopheryl acetate 30 unt / sodium selenite 0.04 mg / zinc oxide 40 mg oral tablet (2 sources) Vitamin C take 1 tablet by mouth in the morning Multiple Vitamin (Multivitamin Adult) tablet Take 1 tablet by mouth in the morning. 0 Active aspirin 81 mg oral tablet (14 sources) Platelet Aggregation Inhibitor, Nonsteroidal Anti-inflammatory Drug Start: 0 take 81 mg by mouth once daily Aspirin Active 81 MG PO Daily July 28, 2019 12:00am Start: 06-07-2016 aspirin, enter ic coated (ASPIRIN, ENTERIC COATED) 81 mg EC tablet 81 mg. 0 06/07/2016 Active ASPIRIN 81 MG ch ewable tablet Chew 81 mg in the morning. 0 Active Comment on above: 81 mg. atorvastatin 40 mg oral tablet (18 sources) HMG-CoA Reductase Inhibitor Start: 1 take 1 tablet by mouth once daily atorvastatin (Lipitor) 40 mg tablet Take 1 tablet (40 mg) by mouth once daily. 0 10/11/2020 Active Start: 04-26-2018 End: 07-28-2019 Atorvastatin (Lipitor) 80 mg tablet Discontinued TABLET April 26, 2018 12:00am July 28, 2019 6:51am azithromycin 250 mg oral tablet (2 sources) Macrolide Antimicrobial Start: 06-30-2023 azithromycin (Zithromax) 250 MG tablet Indications: Acute exacerbation of chronic obstructive pulmonary disease (CMS/HCC) Z-Pack. Take 2 tablets on day 1, and one tablet per day on days 2-5. 6 tablet 0 06/30/2023 Active benoxinate hydrochloride 4 mg/ml / fluorescein sodium 2.5 mg/ml ophthalmic solution (1 source) Diagnostic Dye Start: 05-01-2022 End: 05-01-2022 fluorescein-benoxi anand 0.25-0.4 % 1 Drop (FLURESS) benzonatate 200 mg oral capsule (6 sources) Non-narcotic Antitussive Start: 06-14-2023 take 200 mg by mouth three times daily Benzonatate Active 200 MG PO Three times daily June 14, 2023 12:00am Start: 01-17-2022 take 1 capsule by [facility] three times daily for cough benzonatate (TESSALON PERLE) 100 mg capsule take 1 capsule by mouth three times a day if needed for cough SWALLOW WHOLE 0 01/17/2022 Active Comment on above: take 1 capsule by mo uth three times a day if needed for cough SWALLOW WHOLE 120 actuat budesonide 0.16 mg/actuat / formoterol fumarate 0.0045 mg/actuat metered dose inhaler (2 sources) Corticosteroid, beta2-Adrenergic Agonist Start: 0 take 1 puff(s) by inhalation every twelve hours Budesonide-Formoterol Active 2 PUFF INHALATION Q12H July 28, 2019 12:00am carvedilol 6.25 mg oral tablet (18 sources) alpha-Adrenergic Paras, beta-Adrenergic Paras Start: 4 take 1 tablet by mouth in the morning carvedilol (Coreg) 6.25 MG tablet Indications: Essential hypertension (CMS/HCC) Take 1 tablet (6.25 mg) by mouth in the morning and 1 tablet (6.25 mg) in the evening. Take with meals. 0 06/27/2023 Active Start: 04-25-2021 carvedilol (CO REG) 6.25 mg tablet Start: 06-28-2020 take 0.5 tablet by m outh twice daily carvedilol (Coreg) 12.5 mg tablet Take 0.5 tablets (6.25 mg) by mouth 2 times a day. 0 06/28/2020 Active Start: 04-26-2018 take 12.5 mg by mout h twice daily Carvedilol Active 12.5 MG PO Twice daily April 26, 2018 12:00am cholecalciferol 0.025 mg oral tablet (11 sources) Vitamin D Start: 07-28-2019 take 1 tablet by mouth once daily Cholecalciferol (Vitamin D3) (Vitamin D3) 25 mcg (1,000 unit) Tablet Active 1000 UNIT PO Daily July 28, 2019 12:00am take 1 tablet by mouth in the mo rning cholecalciferol (Vitamin D-3) 50 MCG (1999) tablet Take 50 mcg by mouth in the morning. 0 Active doxycycline hyclate 100 mg oral tablet (6 sources) Tetracycline-class Drug Start: 06-14-2023 take 100 mg by mouth twice daily Doxycycline Hyclate Active 100 MG PO Twice daily 10 June 14, 2023 12:00am Start: 01-17-2022 doxycycline hy clate (VIBRAMYCIN) 100 mg capsule Fish Oils (8 sources) take 1 capsule by mouth once aniceto ly omega-3 (fish oil) 1200 MG capsule Take 1 capsule by mouth 1 (one) time each day. 0 Active Fish Oil 1200 MG Oral Capsule TAKE DIRECTED. Quantity: 0 Refills: 0 Ordered: 07-Sep-2022 DO Active hydroCHLOROthiazide 25 mg oral tablet (10 sources) Thiazide Diuretic Start: 10-11-2020 hydroCHLOROthiazide (HYDRODIURIL, ESIDRIX) 25 mg tablet Take by mouth q 24 HR. 0 10/11/2020 Active Start: 04-26-2018 take 25 mg by mouth once daily Hydrochlorothiazide Active 25 MG PO Daily April 26, 2018 12:00am Comment on above: Take by mouth q 24 H R. iv contrast (will be provided with radiology test) (4 sources) Start: 3 End: 3 inject 1 dose intravenously once iv contrast (will be provided with radiology test) MRI Brain Inject, intravenously, once for 1 dose.No IV access, insert saline lock prior to beginning of sedation, infusion, injection of imaging exam.Discontinue saline lock post exam. If Pt. has a central line or IVAD, may access for administration according to line specific nursing protocol.Once exam is complete flush line and de-access according to line specific nursing protocol in the MR contrast administration guidelines link 1 Each 0 06/21/2022 06/22/2022 Active Start: 06-21-2022 End: 06-22-2022 iv contrast (will be provide d with radiology test) MRI Neck Inject, intravenously, once for 1 dose. No IV access, insert saline lock prior to the beginning of sedation, infusion, injection of imaging exam. Discontinue saline lock post exam. If Pt. has a central line or IVAD, may access for administration according to line specific nursing protocol. Once exam is complete flush line and de-access according to line specific nursing protocol in the MR contrast administration guidelines link. 1 Each 0 06/21/2022 06/22/2022 Active Comment on above: MRI Brain Inject, in travenously, once for 1 dose.No IV access, insert saline lock prior to beginning of sedation, infusion, injection of imaging exam.Discontinue saline lock post exam. If Pt. has a central line or IVAD, may access for administration according to line specific nursing protocol.Once exam is complete flush line and de-access according to line specific nursing protocol in the MR contrast administration guidelines link MRI Neck Inject, int ravenously, once for 1 dose. No IV access, insert saline lock prior to the beginning of sedation, infusion, injection of imaging exam. Discontinue saline lock post exam. If Pt. has a central line or IVAD, may access for administration according to line specific nursing protocol. Once exam is complete flush line and de-access according to line specific nursing protocol in the MR contrast administration guidelines link. magnesium oxide 250 mg oral tablet (3 sources) take 1 tablet by mouth in the morning magnesium oxide (Mag-Ox) 250 MG tablet Take 250 mg by mouth in the morning. 0 Active Multivitamin preparation (3 sources) Start: 07-28-19 take 1 tablet by mouth once daily Multivitamin Active 1 TAB PO Daily July 28, 2019 12:00am Start: 07-28-2019 take 1 tablet by swetha th once daily Multivitamin Active 1 TAB PO Daily July 28, 2019 1:00am Start: 08-24-2006 take 1 tablet by swetha th once daily multivitamin (MULTIPLE VITAMINS ORAL) 1 tablet once daily. 0 08/24/2006 Active nitroglycerin 0.4 mg sublingual tablet (10 sources) Nitrate Vasodilator End: 03-23-2023 nitroglycerin (Nitrostat) 0.[address] 0.4 mg under the tongue every 5 (five) minutes if needed for chest pain. 0 Active Comment on above: Dissolve under the t ongue. omega-3 fatty acids-fish oil (One-Per-Day [place]-3) 684-1,200 mg capsule (1 source) omega-3 fatty acids-fish oil (One-Per-Day [place]-3) 684-1,200 mg capsule Take as directed 0 Active omeprazole 20 mg delayed release oral capsule (18 sources) Proton Pump Inhibitor Start: 08-15-2021 take 1 capsule by mouth once daily omeprazole (PriLOSEC) [address] capsule Take 1 capsule (20 mg) by mouth once daily. 0 08/15/2021 Active Start: 04-26-2018 take 20 mg by mouth once daily Omeprazole Active 20 MG PO Daily April 26, 2018 12:00am phenylephrine hydrochloride 25 mg/ml ophthalmic solution (1 source) alpha-1 Adrenergic Agonist Start: 05-01-2022 End: 05-01-2022 PHENYLephrine 2.5 % 1 Drop (AK-DILATE, ATIF-SYNEPHRINE) predniSONE 20 mg oral tablet (7 sources) Start: 06-30-2023 take 1 tablet by mouth three times daily at mealtime, then take 1 tablet by mouth twice daily, then take 1 tablet by mouth once daily predniSONE (Deltasone) 20 MG tablet Indications: Acute exacerbation of chronic obstructive pulmonary disease (CMS/HCC) 1 po tid with food x 5 days then 1 po bid x 3 days, then 1 po every day x 3 days 24 tablet 0 06/30/2023 Active Start: 06-14-2023 take 40 mg by mouth once daily Prednisone Active 40 MG PO Daily 10 June 14, 2023 12:00am Start: 04-26-2018 End: 05-01-2018 take 40 mg by mouth once daily Prednisone Discontinued 40 MG PO Daily 10 April 26, 2018 12:00am May 01, 2018 12:01am Start: 09-19-2017 End: 07-28-2019 take 60 mg by mouth once daily at mealtime Prednisone Discontinued 60 MG PO Daily 09 10September 18, 2017 11:00pm July 28, 2019 6:55am administer with food or milk rosuvastatin calcium 20 mg oral tablet (2 sources) HMG-CoA Reductase Inhibitor Start: 07-28-2019 take 20 mg by mouth once daily Rosuvastatin Active 20 MG PO Daily July 28, 2019 12:00am sildenafil 100 mg oral tablet (13 sources) Phosphodiesterase 5 Inhibitor Start: 07-28-2019 End: 03-23-2023 take 100 mg by mouth once daily Sildenafil Active 100 MG PO Daily July 28, 2019 12:00am tamsulosin hydrochloride 0.4 mg oral capsule (18 sources) alpha-Adrenergic Paras Start: 06-28-2020 take 2 capsules by mouth once daily tamsulosin (Flomax) 0.4 mg 24 hr capsule Take 2 capsules (0.8 mg) by mouth once daily. 0 06/28/2020 Active Start: 06-28-2020 take 2 capsules by m outh once daily Tamsulosin HCl - 0.4 MG Oral Capsule TAKE 2 CAPSULE Daily Quantity: 0 Refills: 0 Ordered: 10-Oct-2020 DO Start : 28-Jun-2020 Active Start: 04-26-2018 take 0.4 mg by mouth once gretchen y Tamsulosin Active 0.4 MG PO Daily April 26, 2018 12:00am take 1 capsule by [facility] every twenty-four hours in the morning tamsulosin (Flomax) 0.4 MG 24 hr capsule Take 0.4 mg by mouth in the morning. 0 Active triamcinolone acetonide 0.055 mg/actuat metered dose nasal spray (2 sources) Corticosteroid take 1 spray(s) nasal route in the morning triamcinolone (Nasacort Allergy 24HR) 55 MCG/ACT nasal inhaler Administer 1 spray into each nostril in the morning. 0 Active tropicamide 10 mg/ml ophthalmic solution (1 source) Anticholinergic Start: 2 End: 2 tropicamide 1 % 1 Drop (MYDRIACYL) vitamin b12 1 mg oral capsule (2 sources) Vitamin B12 Start: 0 take 1000 ug by mouth once daily Cyanocobalamin (Vitamin B-12) Active 1000 MCG PO Daily July 28, 2019 12:00am vitamin e 180 mg oral capsule (13 sources) Start: 7 take 400 [IU] by mouth once daily Vitamin E Active 400 UNIT PO Daily July 28, 2019 12:00am take 1 capsule by mouth in the m orning alpha tocopherol (Vitamin E) 400 units capsule Take 400 Units by mouth in the morning. 0 Active take 1 tablet by mouth once gretchen y Vitamin E 400 UNIT Oral Tablet TAKE 1 TABLET DAILY. Quantity: 0 Refills: 0 Ordered: 07-Sep-2022 DO Active Comment on above: Take 1 tablet by [facility] once daily. zinc gluconate 30 mg oral tablet (10 sources) take 1 tablet by mouth once daily zinc 30 MG tablet Take 30 mg by mouth 1 (one) time each day. 0 Active Zinc Gluconate 3 0 mg tab Take by mouth q 24 HR. 0 Active Comment on above: Take by mouth q 24 H R. Completed/Discontinued Medications Medication Drug Class(es) Dates Sig (Normalized) Sig (Original) ezetimibe 10 mg oral tablet (6 sources) Dietary Cholesterol Absorption Inhibitor Start: 08-18-2019 take 1 tablet by mouth once daily ezetimibe (ZETIA) 10 mg tablet Take 1 tablet by mouth once daily. 0 08/18/2019 Active Comment on above: Take 1 tablet by swetha th once daily. 120 actuat fluticasone propionate 0.115 mg/actuat / salmeterol 0.021 mg/actuat metered dose inhaler (4 sources) Corticosteroid, beta2-Adrenergic Agonist Start: 01-02-2022 fluticasone-salme terol HFA (ADVAIR) 115-21 mcg/actuation inhaler Start: 01-02-2022 fluticasone-sa lmeterol HFA (ADVAIR) 115-21 mcg/actuation inhaler take 2 puff(s) by in halation in the morning Advair HFA 115-21 MCG/ACT inhaler Inhale 2 puffs in the morning and 2 puffs before bedtime. 0 Active ipratropium bromide 0.2 mg/ml inhalation solution (2 sources) Anticholinergic Start: 04-26-2018 End: 07-28-2019 take 0.5 mg by inhalation every eight hours Ipratropium [place] Discontinued 0.5 MG INHALATION Q8H April 26, 2018 12:00am July 28, 2019 6:55am levoFLOXacin 750 mg oral tablet (2 sources) Quinolone Antimicrobial Start: 04-26-2018 End: 05-06-2018 take 1 tablet by mouth every twenty-four hours Levofloxacin (Levaquin) 750 mg tablet Discontinued 750 MG PO Q24H 10 April 26, 2018 12:00am May 06, 2018 12:02am losartan potassium 50 mg oral tablet (18 sources) Angiotensin 2 Receptor Paras Start: 09-07-2022 take 1 tablet by mouth once daily Losartan Potassium 50 MG Oral Tablet TAKE 1 TABLET DAILY. Quantity: 90 Refills: 3 Ordered: 07-Sep-2022 Rene Castro MD Start : 07-Sep-2022 Active new dose Start: 08-15-2021 take 1 tablet by swetha th twice daily losartan (Cozaar) 25 mg tablet Take 1 tablet (25 mg) by mouth 2 times a day. 0 09/05/2021 Active Start: 04-26-2018 take 25 mg by mouth once daily Losartan Active 25 MG PO Daily April 26, 2018 12:00am Magnesium (6 sources) take 1 tablet by mouth once daily Magnesium 250 MG Oral Tablet TAKE 1 TABLET DAILY. Quantity: 0 Refills: 0 Ordered: 07-Sep-2022 DO Active [place] 3 CAPS (2 sources) [place] 3 CAPS MARLEN E DIRECTED. Quantity: 0 Refills: 0 Ordered: 05-Sep-2021 DO Active valACYclovir 1000 mg oral tablet (5 sources) Herpesvirus Nucleoside Analog DNA Polymerase Inhibitor, Herpes Simplex Virus Nucleoside Analog DNA Polymerase Inhibitor, Herpes Zoster Virus Nucleoside Analog DNA Polymerase Inhibitor Start: take 1 tablet by mouth three times daily valACYclovir (VALTREX) 1 gram TAKE 1 TABLET BY MOUTH THREE TIMES A DAY FOR 7 DAYS 0 02/01/2022 Active Comment on above: TAKE 1 TABLET BY SWETHA TH THREE TIMES A DAY FOR 7 DAYS Problems Active Problems Problem Classification Problem Date Documented Date Episodic/Chronic Asthma (2 sources) Asthma; Translations: [Unspecified asthma, uncomplicated] Onset: 03-14-2023 03-14-2023 Chronic Blindness and vision defects (1 source) Bilateral hyperopia of eyes; Translations: [Hypermetropia, bilateral] Episodic Chronic obstructive pulmonary disease and bronchiectasis (9 sources) Acute exacerbation of chronic asthmatic bronchitis; Translations: [Chronic obstructive pulmonary disease with (acute) exacerbation] Onset: 03-14-2023 09-19-2017 Chronic Congestive heart failure; nonhypertensive (2 sources) Congestive heart failure; Translations: [Heart failure, unspecified] Onset: 03-14-2023 03-14-2023 Chronic Coronary atherosclerosis and other heart disease (20 sources) Coronary arteriosclerosis; Translations: [Coronary atherosclerosis of unspecified type of vessel, [place] or graft] Onset: 01-03-2023 03-23-2023 Chronic Coronary atherosclerosis and other heart disease (2 sources) Presence of coronary angioplasty implant and graft; Translations: [Presence of coronary angioplasty implant and graft] Onset: 02-13-2023 Episodic Disorders of lipid metabolism (15 sources) Hyperlipidemia; Translations: [Other and unspecified hyperlipidemia] Onset: 01-03-2023 03-23-2023 Chronic Esophageal disorders (11 sources) Gastroesophageal reflux disease; Translations: [Esophageal reflux] Onset: 02-13-2023 02-13-2023 Chronic Essential hypertension (17 sources) Essential hypertension; Translations: [Unspecified essential hypertension] Onset: 01-03-2023 03-23-2023 Chronic Hyperplasia of prostate (2 sources) Benign prostatic hypertrophy without outflow obstruction; Translations: [Benign prostatic hyperplasia without lower urinary tract symptoms] Onset: 03-14-2023 03-14-2023 Chronic Malaise and fatigue (2 sources) Asthenia; Translations: [Weakness] 10-15-2020 Episodic Other endocrine disorders (2 sources) Testicular hypofunction; Translations: [Testicular hypofunction] Onset: 03-14-2023 03-14-2023 Chronic Other eye disorders (1 source) Tear film insufficiency; Translations: [Dry eye syndrome of bilateral lacrimal glands] Episodic Other eye disorders (1 source) Paralytic strabismus; 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] Episodic Other lower respiratory disease (1 source) Shortness of breath; Translations: [Shortness of breath] Onset: 06-14-2023 Episodic Other nervous system disorders (1 source) Segmental autonomic dysfunction; 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 Other nervous system disorders (1 source) Myokymia of eyelid; Translations: [Facial myokymia] Episodic Other nervous system disorders (3 sources) 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; Translations: [Clonic hemifacial spasm, right] Episodic Other nutritional; endocrine; and metabolic disorders (10 sources) Obesity; Translations: [Obesity, unspecified] Onset: 02-13-2023 03-23-2023 Chronic Other nutritional; endocrine; and metabolic disorders (2 sources) Obesity, unspecified; Translations: [Obesity, unspecified] Onset: 03-23-2023 Chronic Other nutritional; endocrine; and metabolic disorders (2 sources) Body mass index (BMI) 35.0-35.9, adult; Translations: [Body mass index (BMI) 35.0-35.9, adult] Onset: 03-23-2023 Chronic Other nutritional; endocrine; and metabolic disorders (2 sources) Morbid obesity; Translations: [Morbid (severe) obesity due to excess calories] Onset: 03-14-2023 03-14-2023 Chronic Other screening for suspected conditions (not mental disorders or infectious disease) (2 sources) History of adenomatous polyp of colon; Translations: [Encounter for screening for malignant neoplasm of colon] 07-28-2019 Episodic Other upper respiratory infections (2 sources) Chronic sinusitis; Translations: [Chronic sinusitis, unspecified] Onset: 03-14-2023 03-14-2023 Chronic Past or Other Problems Problem Classification Problem Date Documented Da te Episodic/Chronic Other nervous system disorders (1 source) Clonic hemifacial spasm, right; Translations: [Clonic hemifacial spasm, right] Onset: 08-08-2022 Episodic Other upper respiratory disease (2 sources) Polyp of nasal sinus; Translations: [Other polyp of sinus] Onset: 03-14-2023 03-14-2023 Episodic Screening and history of mental health and substance abuse codes (11 sources) Ex-smoker; Translations: [Personal history of tobacco use] Onset: 02-13-2023 02-13-2023 Episodic Comment on above: QUIT IN 1984; Unclassified (1 source) Onset: 03-23-2023 03-23-2023 Viral infection (4 sources) Disease caused by 2019-nCoV; Translations: [COVID-19] Onset: 03-14-2023 10-15-2020 Episodic Results Test Name Value Interpretation Reference Range Facility Activated partial thrombopla stin time (aPTT) in platelet poor plasma by coagulation aOrdered By: Jasper Martinez on 06-14-2023 aPTT Coag (PPP) [Time] 30.2 s 25.1-36.5 [facility] Comment on above: A hematocrit value g reater than 55% may lead to inaccurate results in coagulation testing. Patients having hematocrit values >55% require a special collection tube for coagulation studies. Please contact the laboratory at [phone] for redraw instructions. Alanine aminotransferase [En zymatic activity/volume] in Serum or PlasmaOrdered By: Jasper Martinez on 06-14-2023 ALT [Catalytic activity/Vol] 37 U/L 7-52 [facility] Albumin [Mass/volume] in Ser um or Plasma by Bromocresol green (BCG) dye binding methoOrdered By: Jasper Martinez on 06-14-2023 Albumin BCG dye [Mass/Vol] 4.1 g/dL 3.5-5.7 [facility] Alkaline phosphatase [Enzyma tic activity/volume] in Serum or PlasmaOrdered By: Jasper Martinez on 06-14-2023 ALP [Catalytic activity/Vol] 59 U/L 34-104 [facility] Aspartate aminotransferase [ Enzymatic activity/volume] in Serum or PlasmaOrdered By: Jasper Martinez on 06-14-2023 AST [Catalytic activity/Vol] 29 U/L 13-39 [facility] B-Type Natriuretic Peptideon 06-14-2023 Natriuretic peptide B (Bld) [Mass/Vol] 67.0 pg/mL Normal 5-100 [facility] Comment on above: Result Comment: PERF ORMED BY: [facility] [address] [place] [address] PATHOLOGIST OFFICE AUTOMATION TECHNICIAN RAPHAEL RANGEL M.D. Performed By: #### C OVID19 FLU RSV, CEPHEID NEG #### [facility] [address] Basophils Auto (Bld) [#/Vol] Ordered By: Jasper Martinez on 06-14-2023 Basophils (Bld) [#/Vol] 0.0 10*3/uL 0.0-0.2 [facility] Basophils/100 WBC Auto (Bld) Ordered By: Jasper Martinez on 06-14-2023 Basophils/100 WBC (Bld) 0.6 % . [facility] Bilirubin.total [Mass/volume ] in Serum or PlasmaOrdered By: Jasper Martinez on 06-14-2023 Bilirubin [Mass/Vol] 0.4 mg/dL 0.3-1.0 [facility] COVID CepheidOrdered By: Asya Martinez on 06-14-2023 SARS-CoV-2 (COVID-19) Ab IA Ql Negative Negative [facility] Comment on above: This is a duplicate Cepheid Xpert Xpress CoV-2/Flu/RSV Plus RNA by RT-PCR result to be used for statistical tracking purpose only. SARS-CoV-2 (COVID-19) RNA VERONA+probe Ql (Unsp spec) [facility] COVID-19 / Flu A/B / RSV PCR on 06-14-2023 SARS-CoV-2 (COVID-19) RNA VERONA+probe Ql (Unsp spec) COVID-19 Cepheid Result Negative for SARS-CoV-2 RNA by RT-PCR Flu A Cepheid Result Negative for Flu A RNA by RT-PCR Flu B Cepheid Result Negative for Flu B RNA by RT-PCR RSV Cepheid Result Negative for RSV RNA by RT-PCR COVID19 Blank Space -- Reference: Negative COVID19 Blank Space -- Cepheid Disclaimer The Cepheid Xpert Xpress CoV-2/Flu/RSV Plus has Cepheid Disclaimer not been FDA cleared or approved; this test has Cepheid Disclaimer been authorized by FDA under an EUA for use by Cepheid Disclaimer authorized laboratories; this test has been Cepheid Disclaimer authorized only for the simultaneous qualitative Cepheid Disclaimer detection and differentiation of nucleic acids from Cepheid Disclaimer SARS-CoV-2, influenza A, influenza B, and Cepheid Disclaimer respiratory syncytial virus (RSV), and not for any Cepheid Disclaimer other viruses or pathogens; and this test is only Cepheid Disclaimer authorized for the duration of the declaration that Cepheid Disclaimer circumstances exist justifying the authorization of Cepheid Disclaimer emergency use of in vitro diagnostic tests for Cepheid Disclaimer detection and/or diagnosis of COVID-19 under Cepheid Disclaimer Section 564(b)(1) of the Act, 21 U.S.C. 360bbb- Cepheid Disclaimer 3(b)(1), unless the authorization is terminated or Cepheid Disclaimer revoked sooner. PERFORMED BY: [facility] [address] [place] [address] PATHOLOGIST OFFICE AUTOMATION TECHNICIAN RAPHAEL RANGEL M.D. Normal [facility] Comment on above: Performed By: #### C OVID19 FLU RSV, CEPHEID NEG #### [facility] [address] [place] [address] [facility] Calcium [Mass/volume] in Ser um or PlasmaOrdered By: Jasper Martinez on 06-14-2023 Calcium [Mass/Vol] 9.0 mg/dL 8.6-10.3 [facility] Carbon dioxide, total [Moles /volume] in Serum or PlasmaOrdered By: Jasper Martinez on 06-14-2023 CO2 [Moles/Vol] 23.4 mmol/L 21.0-31.0 [facility] Cepheid COVID PCR Negativeon 06-14-2023 SARS-CoV-2 (COVID-19) RNA VERONA+probe Ql (Unsp spec) Negative Normal Negative [facility] Comment on above: Result Comment: This is a duplicate CepMoogsoftid Xpert Xpress CoV-2/Flu/RSV Plus RNA by RT-PCR result to be used for statistical tracking purpose only. PERFORMED BY: [place] [address] PATHOLOGIST OFFICE AUTOMATION TECHNICIAN RAPHAEL RANGEL M.D. Performed By: #### C OVID19 FLU RSV, CEPHEID NEG #### [place] [id number] [facility] Chloride [Moles/volume] in S taylor or PlasmaOrdered By: Jasper Martinez on 06-14-2023 Chloride [Moles/Vol] 105 mmol/L 98-107 [facility] Complete Blood Count Auto Di ffon 06-14-2023 Basophils (Bld) [#/Vol] 0.0 10*3/uL Normal 0.0-0.2 [facility] Comment on above: Result Comment: PERF ORMED BY: [place] [address] PATHOLOGIST OFFICE AUTOMATION TECHNICIAN RAPHAEL RANGEL M.D. Performed By: #### B ENTRY LEVEL FINANCIAL ANALYST, CK, MG, CBC, HS TROP, PTT, PT, CMP #### [place] [address] [place] Basophils/100 WBC (Bld) 0.6 % Normal . [facility] Comment on above: Performed By: #### B ENTRY LEVEL FINANCIAL ANALYST, CK, MG, CBC, HS TROP, PTT, PT, CMP #### [place] [address] [place] Eosinophils (Bld) [#/Vol] 0.8 10*3/uL High 0.0-0.45 [facility] Comment on above: Performed By: #### B ENTRY LEVEL FINANCIAL ANALYST, CK, MG, CBC, HS TROP, PTT, PT, CMP #### [address] Eosinophils/100 WBC (Bld) 9.6 % Normal . [facility] Comment on above: Performed By: #### B ENTRY LEVEL FINANCIAL ANALYST, CK, MG, CBC, HS TROP, PTT, PT, CMP #### [address] Erythrocyte distribution width (RBC) [Ratio] 14.4 % Normal 12.0-14.8 [facility] Comment on above: Performed By: #### B ENTRY LEVEL FINANCIAL ANALYST, CK, MG, CBC, HS TROP, PTT, PT, CMP #### [address] Hematocrit (Bld) [Volume fraction] 40.8 % Normal 38.8-50.0 [facility] Comment on above: Performed By: #### B ENTRY LEVEL FINANCIAL ANALYST, CK, MG, CBC, HS TROP, PTT, PT, CMP #### [address] Hemoglobin (Bld) [Mass/Vol] 14.3 g/dL Normal 13.0-17.0 [facility] Comment on above: Performed By: #### B ENTRY LEVEL FINANCIAL ANALYST, CK, MG, CBC, HS TROP, PTT, PT, CMP #### [address] Lymphocytes (Bld) [#/Vol] 1.5 10*3/uL Normal 1.00-4.8 [facility] Comment on above: Performed By: #### B ENTRY LEVEL FINANCIAL ANALYST, CK, MG, CBC, HS TROP, PTT, PT, CMP #### [address] Lymphocytes/100 WBC (Bld) 18.5 % Normal . [facility] Comment on above: Performed By: #### B ENTRY LEVEL FINANCIAL ANALYST, CK, MG, CBC, HS TROP, PTT, PT, CMP #### [address] MCH (RBC) [Entitic mass] 30.1 pg Normal 27.5-35.2 [facility] Comment on above: Performed By: #### B ENTRY LEVEL FINANCIAL ANALYST, CK, MG, CBC, HS TROP, PTT, PT, CMP #### [address] MCV (RBC) [Entitic vol] 86.2 fL Normal 83.5-101 [facility] Comment on above: Performed By: #### B ENTRY LEVEL FINANCIAL ANALYST, CK, MG, CBC, HS TROP, PTT, PT, CMP #### [address] Mean Corpuscular HGB Conc 34.9 g/dL Normal 32.5-35.6 [facility] Comment on above: Performed By: #### B ENTRY LEVEL FINANCIAL ANALYST, CK, MG, CBC, HS TROP, PTT, PT, CMP #### [address] Monocytes (Bld) [#/Vol] 0.8 10*3/uL Normal 0.0-0.8 [facility] Comment on above: Performed By: #### B ENTRY LEVEL FINANCIAL ANALYST, CK, MG, CBC, HS TROP, PTT, PT, CMP #### [address] Monocytes/100 WBC (Bld) 16.39 % Normal 0.00-20.00 [facility] Comment on above: Performed By: #### B ENTRY LEVEL FINANCIAL ANALYST, CK, MG, CBC, HS TROP, PTT, PT, CMP #### [address] Monocytes/100 WBC (Bld) 10.1 % Normal . [facility] Comment on above: Performed By: #### B ENTRY LEVEL FINANCIAL ANALYST, CK, MG, CBC, HS TROP, PTT, PT, CMP #### [address] Neutrophils (Bld) [#/Vol] 4.9 10*3/uL Normal 1.8-7.7 [facility] Comment on above: Performed By: #### B ENTRY LEVEL FINANCIAL ANALYST, CK, MG, CBC, HS TROP, PTT, PT, CMP #### [address] Neutrophils/100 WBC (Bld) 61.2 % Normal . [facility] Comment on above: Performed By: #### B ENTRY LEVEL FINANCIAL ANALYST, CK, MG, CBC, HS TROP, PTT, PT, CMP #### [address] NRBC% 0.1 /100{WBC} Normal 0-0.5 [facility] Comment on above: Performed By: #### B ENTRY LEVEL FINANCIAL ANALYST, CK, MG, CBC, HS TROP, PTT, PT, CMP #### [address] Platelet mean volume (Bld) [Entitic vol] 8.4 fL Normal 6.6-10.1 [facility] Comment on above: Performed By: #### B ENTRY LEVEL FINANCIAL ANALYST, CK, MG, CBC, HS TROP, PTT, PT, CMP #### [address] Platelets (Bld) [#/Vol] 181 10*3/uL Normal 150-450 [facility] Comment on above: Performed By: #### B ENTRY LEVEL FINANCIAL ANALYST, CK, MG, CBC, HS TROP, PTT, PT, CMP #### [address] RBC (Bld) [#/Vol] 4.74 10*6/uL Normal 3.90-5.60 [facility] Comment on above: Performed By: #### B ENTRY LEVEL FINANCIAL ANALYST, CK, MG, CBC, HS TROP, PTT, PT, CMP #### [address] WBC (Bld) [#/Vol] 8.1 10*3/uL Normal 4.1-10.5 [facility] Comment on above: Performed By: #### B ENTRY LEVEL FINANCIAL ANALYST, CK, MG, CBC, HS TROP, PTT, PT, CMP #### [address] Comprehensive Metabolic Pane maria esther 06-14-2023 Albumin [Mass/Vol] 4.1 g/dL Normal 3.5-5.7 [facility] Comment on above: Performed By: #### B ENTRY LEVEL FINANCIAL ANALYST, CK, MG, CBC, HS TROP, PTT, PT, CMP #### [facility] [address] Albumin/Globulin [Mass ratio] 1.6 {ratio} Normal [facility] Comment on above: Performed By: #### B ENTRY LEVEL FINANCIAL ANALYST, CK, MG, CBC, HS TROP, PTT, PT, CMP #### [facility] [address] ALP [Catalytic activity/Vol] 59 U/L Normal 34-104 [facility] Comment on above: Performed By: #### B ENTRY LEVEL FINANCIAL ANALYST, CK, MG, CBC, HS TROP, PTT, PT, CMP #### [facility] [address] ALT [Catalytic activity/Vol] 37 U/L Normal 7-52 [facility] Comment on above: Performed By: #### B ENTRY LEVEL FINANCIAL ANALYST, CK, MG, CBC, HS TROP, PTT, PT, CMP #### [address] Anion gap [Moles/Vol] 11.5 mmol/L Normal 6.0-15.0 [facility] Comment on above: Performed By: #### B ENTRY LEVEL FINANCIAL ANALYST, CK, MG, CBC, HS TROP, PTT, PT, CMP #### [facility] [address] AST [Catalytic activity/Vol] 29 U/L Normal 13-39 [facility] Comment on above: Performed By: #### B ENTRY LEVEL FINANCIAL ANALYST, CK, MG, CBC, HS TROP, PTT, PT, CMP #### [facility] [address] Bilirubin [Mass/Vol] 0.4 mg/dL Normal 0.3-1.0 [facility] Comment on above: Performed By: #### B ENTRY LEVEL FINANCIAL ANALYST, CK, MG, CBC, HS TROP, PTT, PT, CMP #### [facility] [address] Calcium [Mass/Vol] 9.0 mg/dL Normal 8.6-10.3 [facility] Comment on above: Performed By: #### B ENTRY LEVEL FINANCIAL ANALYST, CK, MG, CBC, HS TROP, PTT, PT, CMP #### [facility] [address] Chloride [Moles/Vol] 105 mmol/L Normal 98-107 [facility] Comment on above: Performed By: #### B ENTRY LEVEL FINANCIAL ANALYST, CK, MG, CBC, HS TROP, PTT, PT, CMP #### [address] CO2 [Moles/Vol] 23.4 mmol/L Normal 21.0-31.0 [facility] Comment on above: Performed By: #### B ENTRY LEVEL FINANCIAL ANALYST, CK, MG, CBC, HS TROP, PTT, PT, CMP #### [address] Creatinine [Mass/Vol] 0.89 mg/dL Normal 0.70-1.30 [facility] Comment on above: Performed By: #### B ENTRY LEVEL FINANCIAL ANALYST, CK, MG, CBC, HS TROP, PTT, PT, CMP #### [address] Creatinine Clr Calc Pharmacy 92.42 [facility] Comment on above: Performed By: #### B ENTRY LEVEL FINANCIAL ANALYST, CK, MG, CBC, HS TROP, PTT, PT, CMP #### [address] GFR/1.73 sq M.predicted MDRD (S/P/Bld) [Vol rate/Area] mL/min/{1.73_m2} [facility] Comment on above: Performed By: #### B ENTRY LEVEL FINANCIAL ANALYST, CK, MG, CBC, HS TROP, PTT, PT, CMP #### [address] Globulin (S) [Mass/Vol] 2.5 g/dL [facility] Comment on above: Performed By: #### B ENTRY LEVEL FINANCIAL ANALYST, CK, MG, CBC, HS TROP, PTT, PT, CMP #### [address] Glucose [Mass/Vol] 144 mg/dL High 70-100 [facility] Comment on above: Result Comment: [facility][note 3] Glucose Reference Range is dependent on time and content of last meal. Glucose of more than 200 mg/dL in a nonstressed, ambulatory subject supports the diagnosis of Diabetes Mellitus. ADA recommended reference range Performed By: #### B ENTRY LEVEL FINANCIAL ANALYST, CK, MG, CBC, HS TROP, PTT, PT, CMP #### [address] Potassium [Moles/Vol] 3.9 mmol/L Normal 3.5-5.1 [facility] Comment on above: Performed By: #### B ENTRY LEVEL FINANCIAL ANALYST, CK, MG, CBC, HS TROP, PTT, PT, CMP #### [address] Protein [Mass/Vol] 6.6 g/dL Normal 6.4-8.9 [facility] Comment on above: Performed By: #### B ENTRY LEVEL FINANCIAL ANALYST, CK, MG, CBC, HS TROP, PTT, PT, CMP #### [address] Sodium [Moles/Vol] 136 mmol/L Normal 136-145 [facility] Comment on above: Performed By: #### B ENTRY LEVEL FINANCIAL ANALYST, CK, MG, CBC, HS TROP, PTT, PT, CMP #### [address] Urea nitrogen [Mass/Vol] 12 mg/dL Normal 7-25 [facility] Comment on above: Performed By: #### B ENTRY LEVEL FINANCIAL ANALYST, CK, MG, CBC, HS TROP, PTT, PT, CMP #### [address] Creatine Kinaseon 06-14-2023 CK [Catalytic activity/Vol] 185 U/L Normal 30-223 [facility] Comment on above: Performed By: #### C OVID19 FLU RSV, CEPHEID NEG #### [address] [place] [address] [facility] Creatine kinase [Enzymatic a ctivity/volume] in Serum or PlasmaOrdered By: Jasper Martinez on 06-14-2023 CK [Catalytic activity/Vol] 185 U/L 30-223 [facility] Creatinine [Mass/volume] in Serum or PlasmaOrdered By: Jasper Martinez on 06-14-2023 Creatinine [Mass/Vol] 0.89 mg/dL 0.70-1.30 [facility] ECG 12 lead ECGon 06-14-2023 ECG 12 lead ECG [facility] [place] [address] [place] [id number] Electrocardiograph Report Signed Patient: Demarcus Panchal MR#: [id number] 652 : 1955 Acct:[id number] Age/Sex: 68 / M ADM Date: 06/14/23 Loc: ER Room: Type: [facility] ER Attending Dr: Ordering Provider: Jasper Martinez DO Date of Service: 06/14/23 ECG/ECG 12 lead ECG: Shortness of Breath/Dyspnea Copies to: Test Reason : Blood Pressure : / mmHG Vent. Rate : 081 BPM Atrial Rate : 081 BPM P-R Int : 166 ms QRS Dur : 098 ms QT Int : 368 ms P-R-T Axes : 052 -18 110 degrees QTc Int : 427 ms Normal sinus rhythm Confirmed by Jasper MARTINEZ DO ([id number]) on 06/14/2023 2:25:14 PM Referred By: Electronically Signed By:Jasper MARTINEZ DO Transcribed By: MUS Signed By Jasper Martinez DO 0 06/14/23 1425 Normal [facility] Eosinophils Auto (Bld) [#/Vo l]Ordered By: Jasper Martinez on 06-14-2023 Eosinophils (Bld) [#/Vol] 0.8 10*3/uL 0.0-0.45 [facility] Eosinophils/100 WBC Auto (Bl d)Ordered By: Jasper Matrinez on 06-14-2023 Eosinophils/100 WBC (Bld) 9.6 % . [facility] Erythrocyte distribution wid th Auto (RBC) [Ratio]Ordered By: Jasper Martinez on 06-14-2023 Erythrocyte distribution width (RBC) [Ratio] 14.4 % 12.0-14.8 [facility] Globulin Calc (S) [Mass/Vol] Ordered By: Jasper Martinez on 06-14-2023 Globulin (S) [Mass/Vol] 2.5 g/dL [facility] Glucose [Mass/volume] in Ser um or PlasmaOrdered By: Jasper Martinez on 06-14-2023 Glucose [Mass/Vol] 144 mg/dL 70-100 [facility] Comment on above: ADA recommended refe rence rangeRandom Glucose Reference Range is dependent on time and content of last meal. Glucose of more than 200 mg/dL in a nonstressed, ambulatory subject supports the diagnosis of Diabetes Mellitus. Hematocrit Auto (Bld) [Volum e fraction]Ordered By: Jasper Martinez on 06-14-2023 Hematocrit (Bld) [Volume fraction] 40.8 % 38.8-50.0 [facility] Hemoglobin [Mass/volume] in BloodOrdered By: Jasper Martinez on 06-14-2023 Hemoglobin (Bld) [Mass/Vol] 14.3 g/dL 13.0-17.0 [facility] INR in Platelet poor plasma by Coagulation assayOrdered By: Jasper Martinez on 06-14-2023 INR Coag (PPP) [Relative time] 1.1 {INR} [facility] Comment on above: INR Therapeutic Rang e A) Pre- and Peroperative OAT started two weeks before surgery. NOT HIP SURGERY: 1.5 - 2.5 HIP SURGERY: 2 - 3B) Primary and secondary prevention of venous THROMBOSIS: 2 - 3C) Active venous thrombosis, pulmonary embolismand prevention of recurrent venous thrombosis: 2 - 3D) Prevention of arterial thromboembolismincluding patients with mechanical heart valves: 3 - 4.5 Leukocytes [#/volume] correc zakiya for nucleated erythrocytes in Blood by Automated counOrdered By: Jasper Martinez on 06-14-2023 WBC corrected for nucl RBC Auto (Bld) [#/Vol] 8.1 10*3/uL 4.1-10.5 [facility] Lymphocytes Auto (Bld) [#/Vo l]Ordered By: Jasper Martinez on 06-14-2023 Lymphocytes (Bld) [#/Vol] 1.5 10*3/uL 1.00-4.8 [facility] Lymphocytes/100 WBC Auto (Bl d)Ordered By: Jasper Martinez on 06-14-2023 Lymphocytes/100 WBC (Bld) 18.5 % . [facility] MCH Auto (RBC) [Entitic mass ]Ordered By: Jasper Martinez on 06-14-2023 MCH (RBC) [Entitic mass] 30.1 pg 27.5-35.2 [facility] MCHC Auto (RBC) [Mass/Vol]Or dered By: Jasper Martinez on 06-14-2023 MCHC (RBC) [Mass/Vol] 34.9 g/dL 32.5-35.6 [facility] MCV Auto (RBC) [Entitic vol] Ordered By: Jasper Matrinez on 06-14-2023 MCV (RBC) [Entitic vol] 86.2 fL 83.5-101 [facility] Magnesiumon 06-14-2023 Magnesium [Mass/Vol] 2.0 mg/dL Normal 1.9-2.7 [facility] Comment on above: Result Comment: PERF ORMED BY: [place] [address] PATHOLOGIST OFFICE AUTOMATION TECHNICIAN RAPHAEL RANGEL M.D. Performed By: #### B ENTRY LEVEL FINANCIAL ANALYST, CK, MG, CBC, HS TROP, PTT, PT, CMP #### [address] Magnesium [Mass/volume] in S taylor or PlasmaOrdered By: Jasper Martinez on 06-14-2023 Magnesium [Mass/Vol] 2.0 mg/dL 1.9-2.7 [facility] Monocyte distribution width [Entitic volume] in Blood by AutomatedOrdered By: Jasper Martinez on 06-14-2023 Monocyte distribution width Auto (Bld) [Entitic vol] 16.39 % 0.00-20.00 [facility] Monocytes Auto (Bld) [#/Vol] Ordered By: Jasper Martinez on 06-14-2023 Monocytes (Bld) [#/Vol] 0.8 10*3/uL 0.0-0.8 [facility] Monocytes/100 WBC Auto (Bld) Ordered By: Jasper Martinez on 06-14-2023 Monocytes/100 WBC (Bld) 10.1 % . [facility] Natriuretic peptide B [Mass/ Vol]Ordered By: Jasper Martinez on 06-14-2023 Natriuretic peptide B (Bld) [Mass/Vol] 67.0 pg/mL 5-100 [facility] Neutrophils Auto (Bld) [#/Vo l]Ordered By: Jasper Martinez on 06-14-2023 Neutrophils (Bld) [#/Vol] 4.9 10*3/uL 1.8-7.7 [facility] Neutrophils/100 WBC Auto (Bl d)[facility] Neutrophils/100 WBC (Bld) 61.2 % . [facility] No Panel InformationOrdered By: Jasper Martinez on 06-14-2023 Estimated GFR (CKD-EPI) > 60.0 mL/Min [facility] Creatinine Clearance (Chem 92.42 [facility] Nucleated erythrocytes [Pres ence] in Blood by Automated countOrdered By: Jasper Martinez on 06-14-2023 Nucleated RBC Auto Ql (Bld) 0.1 /100{WBC} 0-0.5 [facility] Partial Thromboplastin Timeo n 06-14-2023 aPTT Coag (Bld) [Time] 30.2 s Normal 25.1-36.5 [facility] Comment on above: Result Comment: A he matocrit value greater than 55% may lead to inaccurate results in coagulation testing. Patients having hematocrit values >55% require a special collection tube for coagulation studies. Please contact the laboratory at [phone] for redraw instructions. PERFORMED BY: [place] [id number] PATHOLOGIST OFFICE AUTOMATION TECHNICIAN RAPHAEL RANGEL M.D. Performed By: #### C OVID19 FLU RSV, CEPHEID NEG #### [place] [id number] [facility] Platelet mean volume Auto (B ld) [Entitic vol]Ordered By: Jasper Martinez on 06-14-2023 Platelet mean volume (Bld) [Entitic vol] 8.4 fL 6.6-10.1 [facility] Platelets Auto (Bld) [#/Vol] Ordered By: Jasper Martinez on 06-14-2023 Platelets (Bld) [#/Vol] 181 10*3/uL 150-450 [facility] Potassium [Moles/volume] in Serum or PlasmaOrdered By: Jasper Martinez on 06-14-2023 Potassium [Moles/Vol] 3.9 mmol/L 3.5-5.1 [facility] Protein [Mass/volume] in Ser um or PlasmaOrdered By: Jasper Martinez on 06-14-2023 Protein [Mass/Vol] 6.6 g/dL 6.4-8.9 [facility] Prothrombin Time INRon 06-14 INR Coag (PPP) [Relative time] 1.1 {INR} Normal [facility] Comment on above: Result Comment: INR Therapeutic Range A) Pre- and Peroperative OAT started two weeks before surgery. NOT HIP SURGERY: 1.5 - 2.5 HIP SURGERY: 2 - 3 B) Primary and secondary prevention of venous THROMBOSIS: 2 - 3 C) Active venous thrombosis, pulmonary embolism and prevention of recurrent venous thrombosis: 2 - 3 D) Prevention of arterial thromboembolism including patients with mechanical heart valves: 3 - 4.5 Performed By: #### B ENTRY LEVEL FINANCIAL ANALYST, CK, MG, CBC, HS TROP, PTT, PT, CMP #### [facility] [address] [place] [id number] [facility] PT Coag (PPP) [Time] 12.1 s Normal 9.0-12.9 [facility] Comment on above: Result Comment: A he matocrit value greater than 55% may lead to inaccurate results in coagulation testing. Patients having hematocrit values >55% require a special collection tube for coagulation studies. Please contact the laboratory at [phone] for redraw instructions. Performed By: #### B ENTRY LEVEL FINANCIAL ANALYST, CK, MG, CBC, HS TROP, PTT, PT, CMP #### [facility] [address] [place] [id number] [facility] Prothrombin time (PT)Ordered By: Jasper Martinez on 06-14-2023 PT Coag (PPP) [Time] 12.1 s 9.0-12.9 [facility] Comment on above: A hematocrit value g reater than 55% may lead to inaccurate results in coagulation testing. Patients having hematocrit values >55% require a special collection tube for coagulation studies. Please contact the laboratory at [phone] for redraw instructions. RBC Auto (Bld) [#/Vol]Ordere d By: Jasper Martinez on 06-14-2023 RBC (Bld) [#/Vol] 4.74 10*6/uL 3.90-5.60 [facility] Serum or plasma albumin/glob ulin mass ratioOrdered By: Jasper Martinez on 06-14-2023 Albumin/Globulin [Mass ratio] 1.6 {ratio} [facility] Serum or plasma anion gap de terminationOrdered By: Jasper Martinez on 06-14-2023 Anion gap [Moles/Vol] 11.5 mmol/L 6.0-15.0 [facility] Sodium [Moles/volume] in Ser um or PlasmaOrdered By: Jasper Martinez on 06-14-2023 Sodium [Moles/Vol] 136 mmol/L 136-145 [facility] Troponin I High Sensitivityo n 06-14-2023 Troponin I High Sensitivity 26.8 pg/mL High 0.0-20.0 [facility] Comment on above: Result Comment: PERF ORMED BY: [place] [address] PATHOLOGIST OFFICE AUTOMATION TECHNICIAN RAPHAEL RANGEL M.D. Performed By: #### C OVID19 FLU RSV, CEPHEID NEG #### [facility] [address] [place] [address] Troponin I.cardiac [Mass/vol ume] in Serum or Plasma by Detection limit <= 0.01 ng/Ordered By: Jasper Martinez on 06-14-2023 Troponin I.cardiac DL <= 0.01 ng/mL [Mass/Vol] 26.8 pg/mL 0.0-20.0 [facility] Urea nitrogen [Mass/volume] in Serum or PlasmaOrdered By: Jaspre Martinez on 06-14-2023 Urea nitrogen [Mass/Vol] 12 mg/dL 7-25 [facility] WBC Auto (Bld) [#/Vol]Ordere d By: Jasper Martinez on 06-14-2023 WBC (Bld) [#/Vol] 8.1 10*3/uL 4.1-10.5 [facility] XR chest 2V*on 06-14-2023 XR chest 2V* [facility] [place] [address] [place], [place] [id number] XRay Report Signed Patient: Demarcus Panchal MR#: [id number] 652 : 1955 Acct:[id number] Age/Sex: 68 / M ADM Date: 06/14/23 Loc: ER Room: Type: [facility] ER Attending Dr: Copies to: Jasper Martinez DO Ordering Provider: Jasper Martinez DO Date of Service: 06/14/23 XR/XR chest 2V*: Shortness of Breath/Dyspnea Plain film chest 2 view HISTORY: Shortness of breath. Productive cough. COMPARISON: 10/15/2020 FINDINGS: SUPPORT DEVICES: None POSTSURGICAL CHANGES: None HEART: Similar borderline cardiomegaly PULMONARY GIOVANNA: Stable MEDIASTINUM: Unremarkable LUNGS AND PLEURA: Mild basilar interstitial prominence. No pleural effusion or pneumothorax. BONY STRUCTURES: Thoracic spondylosis. ADDITIONAL FINDINGS None XR/XR chest 2V* IMPRESSION: Mild basilar interstitial prominence. Impression dictated by: Salvador Nguyễn M.D.06/14/2023 1:59 PM Dictation Location: [place] [address] Transcribed By: [facility] 06/14/23 1359 Dictated By: Salvaodr Nguyễn DO 06/14/23 1354 Signed By: 06/14/23 1359 Normal [facility] Cardiac echo study Procedure on 03-20-2023 Ordered by an unspec ified provider. [facility] Alanine aminotransferase [En zymatic activity/volume] in Serum or PlasmaOrdered By: Sera Flower on 02-05-2023 ALT [Catalytic activity/Vol] 51 U/L [facility] Albumin [Mass/volume] in Ser um or Plasma by Bromocresol green (BCG) dye binding methoOrdered By: Sera Flower on 02-05-2023 Albumin BCG dye [Mass/Vol] 4.4 g/dL 3.5-5.7 [facility] Alkaline phosphatase [Enzyma tic activity/volume] in Serum or PlasmaOrdered By: Sera Flower on 02-05-2023 ALP [Catalytic activity/Vol] 61 U/L 34-104 [facility] Aspartate aminotransferase [ Enzymatic activity/volume] in Serum or PlasmaOrdered By: Sera Flower on 02-05-2023 AST [Catalytic activity/Vol] 39 U/L 13-39 [facility] Bilirubin.total [Mass/volume ] in Serum or PlasmaOrdered By: Sera Flower on 02-05-2023 Bilirubin [Mass/Vol] 0.7 mg/dL 0.3-1.0 [facility] Calcium [Mass/volume] in Ser um or PlasmaOrdered By: Sera Flower on 02-05-2023 Calcium [Mass/Vol] 9.1 mg/dL 8.6-10.3 [facility] Carbon dioxide, total [Moles /volume] in Serum or PlasmaOrdered By: Sera Flower on 02-05-2023 CO2 [Moles/Vol] 28.0 mmol/L 21.0-31.0 [facility] Chloride [Moles/volume] in S taylor or PlasmaOrdered By: Sera Flower on 02-05-2023 Chloride [Moles/Vol] 103 mmol/L 98-107 [facility] Comprehensive Metabolic Pane maria esther 02-05-2023 Albumin [Mass/Vol] 4.4 g/dL Normal 3.5-5.7 [facility] Comment on above: Order Comment: PT IS FASTING Performed By: #### C MP #### [facility] [address] Albumin/Globulin [Mass ratio] 2.6 {ratio} Normal [facility] Comment on above: Order Comment: PT IS FASTING Performed By: #### C MP #### [facility] [address] ALP [Catalytic activity/Vol] 61 U/L Normal 34-104 [facility] Comment on above: Order Comment: PT IS FASTING Result Comment: PERF ORMED BY: [facility] [address] [facility] [place] [address] PATHOLOGIST OFFICE AUTOMATION TECHNICIAN RAPHAEL RANGEL M.D. Performed By: #### C MP #### [facility] [address] ALT [Catalytic activity/Vol] 51 U/L Normal 7-52 [facility] Comment on above: Order Comment: PT IS FASTING Performed By: #### C MP #### [facility] [address] Anion gap [Moles/Vol] 11.4 mmol/L Normal 6.0-15.0 [facility] Comment on above: Order Comment: PT IS FASTING Performed By: #### C MP #### [facility] [address] AST [Catalytic activity/Vol] 39 U/L Normal 13-39 [facility] Comment on above: Order Comment: PT IS FASTING Performed By: #### C MP #### [address] Bilirubin [Mass/Vol] 0.7 mg/dL Normal 0.3-1.0 [facility] Comment on above: Order Comment: PT IS FASTING Performed By: #### C MP #### [facility] [address] Calcium [Mass/Vol] 9.1 mg/dL Normal 8.6-10.3 [facility] Comment on above: Order Comment: PT IS FASTING Performed By: #### C MP #### [facility] [address] [place] [address] [place] Chloride [Moles/Vol] 103 mmol/L Normal 98-107 [facility] Comment on above: Order Comment: PT IS FASTING Performed By: #### C MP #### [facility] [address] [place] [address] [place] CO2 [Moles/Vol] 28.0 mmol/L Normal 21.0-31.0 [facility] Comment on above: Order Comment: PT IS FASTING Performed By: #### C MP #### [facility] [address] [place] [address] [place] Creatinine [Mass/Vol] 1.00 mg/dL Normal 0.70-1.30 [facility] Comment on above: Order Comment: PT IS FASTING Performed By: #### C MP #### [facility] [address] [place] [address] [place] GFR/1.73 sq M.predicted MDRD (S/P/Bld) [Vol rate/Area] mL/min/{1.73_m2} Normal [facility] Comment on above: Order Comment: PT IS FASTING Performed By: #### C MP #### [address] Globulin (S) [Mass/Vol] 1.7 g/dL Normal [facility] Comment on above: Order Comment: PT IS FASTING Performed By: #### C MP #### [address] Glucose [Mass/Vol] 93 mg/dL Normal 70-100 [facility] Comment on above: Order Comment: PT IS FASTING Result Comment: [facility][note 3] Glucose Reference Range is dependent on time and content of last meal. Glucose of more than 200 mg/dL in a nonstressed, ambulatory subject supports the diagnosis of Diabetes Mellitus. ADA recommended reference range Performed By: #### C MP #### [address] Potassium [Moles/Vol] 4.4 mmol/L Normal 3.5-5.1 [facility] Comment on above: Order Comment: PT IS FASTING Performed By: #### C MP #### [place] [address] [place] Protein [Mass/Vol] 6.1 g/dL Low 6.4-8.9 [facility] Comment on above: Order Comment: PT IS FASTING Performed By: #### C MP #### [place] [address] [place] Sodium [Moles/Vol] 138 mmol/L Normal 136-145 [facility] Comment on above: Order Comment: PT IS FASTING Performed By: #### C MP #### [place] [address] [place] Urea nitrogen [Mass/Vol] 15 mg/dL Normal 7-25 [facility] Comment on above: Order Comment: PT IS FASTING Performed By: #### C #### [facility] [address] [place] [id number] [facility] Creatinine [Mass/volume] in Serum or PlasmaOrdered By: Sera Flower on 02-05-2023 Creatinine [Mass/Vol] 1.00 mg/dL 0.70-1.30 [facility] echo transthoracicon [facility] echo transthoracic [facility] [place] [address] [place] [id number] Echocardiogram Signed Patient: Demarcus Panchal MR#: [id number] : 1955 Acct:[id number] Age/Sex: 68 / M ADM Date: 02/05/23 Loc: Room: Type: [facility] Attending Dr: Rene Castro MD Ordering Provider: Rene Castro MD, [facility] Date of Service: 02/05/23/ [facility] echo transthoracic: HTN, ISCHEMIC CARDIOMYOPATHY Copies to: Rene Castro MD, [facility] BSA: 2.2 m2 BP: 141/82 mmHg HR: 53 Reason For Study: HTN, ISCHEMIC CARDIOMYOPATHY History: HTN, HLD, Former Smoker, [place], 5 Stents, Asthma, Emphysema, COVID Interpretation Summary Mild concentric left ventricular hypertrophy. Moderate inferolateral wall hypokinesis The LV ejection fraction is 45 %. A variety of Doppler measurements indicate impaired left ventricular relaxation, which is associated with grade I/IV or mild diastolic dysfunction. There is no prior echocardiogram noted for this patient. Procedure/Quality: A two-dimensional transthoracic echocardiogram with color flow and Doppler was performed. The study was technically good in quality. There is no prior echocardiogram noted for this patient. Left Ventricle: Mild concentric left ventricular hypertrophy. The LV ejection fraction is 45 %. A variety of Doppler measurements indicate impaired left ventricular relaxation, which is associated with grade I/IV or mild diastolic dysfunction. Moderate inferolateral wall hypokinesis. Left Atrium: The left atrium appears normal in size. The atrial septum appears normal. Right Atrium: The right atrium appears normal in size. Right Ventricle: The right ventricular size, thickness and function are normal. Aortic Valve: The aortic valve is normal in structure and function. Mitral Valve: The mitral valve is normal. There is trace mitral regurgitation. Tricuspid Valve: The tricuspid valve is normal. There is trace tricuspid regurgitation. Pulmonic Valve: The pulmonic valve is not well seen, but is grossly normal. Arteries: The aortic root is normal size. Pericardium/Pleura: No pericardial effusion seen. There is no pleural effusion. IVC/Hepatic Viens: The IVC is normal in size with an inspiratory collapse of greater then 50%, suggesting normal right atrial pressure. Miscellaneous: No thrombus, vegetation or mass is seen. Measurements with Normals IVSd: 1.2 cm (0.7-1.1 cm)LVIDd: 5.8 cm (3.7-5.4 cm) LVPWd: 1.3 cm (0.7-1.1 cm)LVIDs: 4.6 cm (2.3-3.6 cm) LA dimension: 3.8 cm (2.3-4.0 cm)Ao root diam: 3.3 cm(2.0-3.6 cm) asc Aorta Diam: 2.9 cm(2.1-3.4cm) Doppler with Normals RVSP(TR): 35.3 mmHg (18-35mmHg) MV E max anthony: 59.1 cm/sec(0.8-1.3m/s) MV A max anthony: 82.3 cm/sec(0.0-0.0m/s) MV E/A: 0.72 (<1.5) MMode/2D Measurements Calculations RVDd: 2.3 cm FS: 20.8 % Ao root area: 8.3 cm2 LVLd ap4: 7.5 cm TAPSE: 2.2 cm EDV(Teich): EDV(MOD-sp4): RV S Anthony: 165.7 ml 90.1 ml 13.4 cm/sec ESV(Teich): LVLs ap4: 6.4 cm 96.5 ml ESV(MOD-sp4): EF(Teich): 41.7 % 49.9 ml EF(MOD-sp4): 44.6 % __ SV(MOD-sp4): LAV(MOD-sp4): LA A2 area: 15.7 cm2 RA Volume: 17.2 ml 40.2 ml 42.4 ml LAV(MOD-sp2): LA A4 area: 16.2 cm2 41.3 ml LA length (vol): 5.0 cm LA vol: 43.4 ml LA vol index: 20.0 ml/m2 Doppler Measurements Calculations MV max P.0 mmHg E/E' lat: MR max anthony: TV max P.7 256.6 cm/sec 30.0 mmHg E/E' med: MR max P.6 mmHg 9.1 __ TR max anthony: 275.1 cm/sec TR max P.3 mmHg RAP systole: 5.0 mmHg Transcribed By: SCV Performed At: 02/05/23 1042 Signed By: Rene Castro MD, [facility] 02/05/23 1207 Normal [facility] Globulin Calc (S) [Mass/Vol] Ordered By: Sera Flower on 02-05-2023 Globulin (S) [Mass/Vol] 1.7 g/dL [facility] Glucose [Mass/volume] in Ser um or PlasmaOrdered By: Sera Flower on 02-05-2023 Glucose [Mass/Vol] 93 mg/dL 70-100 [facility] Comment on above: ADA recommended refe rence rangeRandom Glucose Reference Range is dependent on time and content of last meal. Glucose of more than 200 mg/dL in a nonstressed, ambulatory subject supports the diagnosis of Diabetes Mellitus. No Panel InformationOrdered By: Sera Flower on 02-05-2023 Estimated GFR (CKD-EPI) > 60.0 mL/Min [facility] Creatinine Clearance (Chem N/A [facility] No Panel Informationon 02-05 -[facility] daniel 250 DO Work Phone: Potassium [Moles/volume] in Serum or PlasmaOrdered By: Sera Flower on 02-05-2023 Potassium [Moles/Vol] 4.4 mmol/L 3.5-5.1 [facility] Protein [Mass/volume] in Ser um or PlasmaOrdered By: Sera Flower on 02-05-2023 Protein [Mass/Vol] 6.1 g/dL 6.4-8.9 [facility] Serum or plasma albumin/glob ulin mass ratioOrdered By: Sera Flower on 02-05-2023 Albumin/Globulin [Mass ratio] 2.6 {ratio} [facility] Serum or plasma anion gap de terminationOrdered By: Sera Flower on 02-05-2023 Anion gap [Moles/Vol] 11.4 mmol/L 6.0-15.0 [facility] Sodium [Moles/volume] in Ser um or PlasmaOrdered By: Sera Flower on 02-05-2023 Sodium [Moles/Vol] 138 mmol/L 136-145 [facility] Urea nitrogen [Mass/volume] in Serum or PlasmaOrdered By: Sera Flower on 02-05-2023 Urea nitrogen [Mass/Vol] 15 mg/dL 7-25 [facility] CARDIAC STRESS/REST INJE CTIONon 01-03-2023 [facility] CARDIAC STRESS/REST INJECTION Patient Name: DEMARCUS PANCHAL STUDY: MYOCARDIAL PERFUSION STRESS TEST WITH LEXISCAN Performing facility: [facility], [address] [place] [address], [address] Provider: [facility] PCP: Dr. Hunter Flower Supervising provider: Danna Davis DO, [facility] INDICATION: CAD; HTN Hyperlipidemia Ischemic cardiomyopathy HISTORY: Gender: M; Age: 68 y/o ; Height: 172.72 cm; Weight: 533.2185995 kg. CAD; High Cholesterol; HTN; Quit smoking 38 years ago. Cardiac catheterization on 2009. PTCA on 2009. COMPARISON: Previous nuclear testing completed at [facility]. ACCESSION NUMBER(S): [id number]; [id number]; [id number] ORDERING CLINICIAN: WALKER CASTRO TECHNIQUE: TWO DAY protocol. Stress injection: Date:01-03-23, 34.9 mCi of Myoview IV 20 seconds after rapid injection of Lexiscan. Rest injection: Date: 01-04-23, 34.9 mCi of Myoview IV at rest. The patient had a rapid injection of 0.4 mg of Lexiscan IV over 10 seconds. Imaging was performed by gated tomographic technique. Reason for Lexiscan: dizziness/unsteady/fall risk STRESS TEST DATA: Resting heart rate was 59 BPM. Resting blood pressure was 136/78 mmHg. Peak blood pressure was 110/68 mmHg. Peak heart rate was 67 BPM. TEST TERMINATED DUE TO: Protocol completed FINDINGS: STRESS TEST RESULTS: Resting electrocardiogram revealed sinus bradycardia with inferolateral myocardial infarction of undetermined age. There were no significant ischemic ECG changes or dysrhythmias. The patient did not have chest pains/symptoms during procedure. There was a normal recovery phase. IMAGING RESULTS: Image quality was good. Rest and stress tomographic images were reviewed and revealed abnormal perfusion. There was no evidence of perfusion abnormality consistent with ischemia. There was evidence of moderate-sized inferolateral and mid anterior wall fixed perfusion defect consistent with prior myocardial infarction . There was no left ventricular dilatation with stress. Overall left ventricular systolic function appeared to be abnormal. There was moderate to severe global hypokinesis . LVEF was 35%. TID is 1.23 and is borderline. There was no evidence of attenuation artifact. IMPRESSION: Abnormal Lexiscan Myoview cardiac perfusion stress test. No myocardial ischemia by perfusion imaging. Moderate-sized inferolateral and mid anterior myocardial infarction by perfusion imaging. Abnormal left ventricular systolic function with moderate to severe global hypokinesis. Left ventricular ejection fraction 35 %. When compared to a study from 2020, no significant interval changes are seen. Electronically signed by: RENE CASTRO MD Normal [facility] No Panel Informationon 01-03 Normal -[facility]-Sandu daniel 250 DO Work Phone: Office Visit (Cardiology)on 09-07-2022 Follow-up visit Diagnoses/Problems Assessed CAD (coronary artery disease) (414.00) (I25.10) Ischemic cardiomyopathy (414.8) (I25.5) Essential hypertension (401.9) (I10) Status post coronary artery stent placement (V45.82) (Z95.5) Hyperlipidemia (272.4) (E78.5) Class 2 obesity with body mass index (BMI) of 36.0 to 36.9 in adult (278.00,V85.36) (E66.9,Z68.36) Former smoker (V15.82) (Z87.891) QUIT IN 1984 Orders CAD (coronary artery disease), Hyperlipidemia Renew: Atorvastatin Calcium 40 MG Oral Tablet; TAKE 1 TABLET DAILY CAD (coronary artery disease), Ischemic cardiomyopathy Start: Losartan Potassium 50 MG Oral Tablet; TAKE 1 TABLET DAILY CAD (coronary artery disease), Status post coronary artery stent placement Renew: Aspirin EC 81 MG Oral Tablet Delayed Release; TAKE 1 TABLET DAILY Class 2 obesity with body mass index (BMI) of 36.0 to 36.9 in adult Healthy Weight Tips; Status:Complete - Retrospective Authorization; Done: [id number] Some eating tips that can help you lose weight.; Status:Complete - Retrospective Authorization; Done: [id number] Essential hypertension, Ischemic cardiomyopathy Renew: Carvedilol 6.25 MG Oral Tablet (Coreg); TAKE 1 TABLET TWICE DAILY WITH MEALS SocHx: Former smoker Stop: Losartan Potassium 25 MG Oral Tablet Tobacco Use Screening; Status:Complete; Done: [id number] Unlinked Stop: hydroCHLOROthiazide 25 MG Oral Tablet Patient Instructions Please bring all medicines, vitamins, and herbal supplements with you when you come to the office. Prescriptions will not be filled unless you are compliant with your follow up appointments or have a follow up appointment scheduled as per instruction of your physician. Refills should be requested at the time of your visit. STop HCTZ Increase Losartan to 50 mg one daily Remain on Coreg Follow up in 6 months no lab, pcp will follow Chief Complaint DEMARCUS PANCHAL is being seen for an annual follow-up of. Patient is in the office for follow-up for ischemic heart disease and has had no events since he was last seen in the office several months ago. He remains significantly obese which sometimes causes his dyspnea. He does have LV systolic dysfunction ejection fraction 38% and he remains in compensated state. His blood pressure is under control medical therapy. His lipids have been under control on statin therapy as well. He does not smoke and does not seem to have problem with diabetes. His review of system essentially normal except for occasional dyspnea on exertion he has no indication of sleep apnea. Recent lab data were forwarded to me for review and discussed with the patient. ASSESSMENT AND PLAN: 1. Coronary artery disease, stable. Currently on guideline directed medical therapy for chronic ischemic heart disease which has been well-tolerated 2. Status post angioplasty with bare-metal stent to the right coronary artery and drug-eluting stent to the anterior descending artery in 2009. Nuclear stress test 2020 in January revealed no ischemia but areas of infarction and reduced ejection fraction at 38%. 3. Hypertension, under control, the patient was advised to discontinue hydrochlorothiazide and increase losartan since it would be better medicine for his LV systolic dysfunction. 4. Hyperlipidemia, on statin therapy. And Zetia, recent lab data from PCP were reviewed with the patient and his lipids are on target. 5. Asymptomatic ischemic cardiomyopathy, stage C functional class II NYHA last ejection fraction from January 2021 was 38%, continue beta-blockers and increase losartan up to 50 mg daily. 6. Obesity provided patients with advice on the measures to bring his BMI down with emphasis on low-calorie diet Rene Castro MD, [facility] Surgical History Problems History of Coronary artery stent placement History of Percutaneous transluminal coronary angioplasty History of Shoulder surgery Current Meds Medication NameInstruction Aspirin EC 81 MG Oral Tablet Delayed ReleaseTAKE 1 TABLET DAILY. Atorvastatin Calcium 40 MG Oral TabletTAKE 1 TABLET DAILY. Coreg 6.25 MG Oral TabletTAKE 1 TABLET TWICE DAILY WITH MEALS. Fish Oil 1200 MG Oral CapsuleTAKE DIRECTED. hydroCHLOROthiazide 25 MG Oral TabletTAKE 1 TABLET DAILY. Losartan Potassium 25 MG Oral TabletTAKE 1 TABLET DAILY. Magnesium 250 MG Oral TabletTAKE 1 TABLET DAILY. Omeprazole 20 MG Oral Capsule Delayed ReleaseTAKE 1 CAPSULE DAILY EVERY MORNING BEFORE BREAKFAST. Sildenafil Citrate 100 MG Oral TabletTAKE 1 TABLET DAILY 1 HOUR BEFORE NEEDED Tamsulosin HCl - 0.4 MG Oral CapsuleTAKE 1 CAPSULE Daily Vitamin D3 50 MCG (1999 UT) Oral TabletTake 1 tablet daily Vitamin E 400 UNIT Oral TabletTAKE 1 TABLET DAILY. Zinc 30 MG Oral TabletTAKE 1 TABLET DAILY. Allergies Medication codeine Recorded By: Kelly Martin; 09/07/2022 11:30:47 AM Social History Problems Caffeine use (V49.89) (Z78.9) 5 CUPS OF COFFEE DAILY Former smoker (V15.82) (Z87.891) QUIT IN 1984 No a (more content not included)... Normal [facility] Tobacco Screening.on 023 Adult depression screening assessment No [facility]-Cardiolo gy-Mag 250 DO Work Phone: Fall risk assessment a) No falls within the last year MP-Jaswant Maysy 250 DO Work Phone: Tobacco use status [facility] b) No MP-Jaswant norton-Fisher 250 DO Work Phone: MRI Soft Tissue Neck w/o + w /on 07-14-2022 MRI Soft Tissue Neck w/o + w/ CLINICAL HISTORY: Right hemifacial spasm and some weakness. COMPARISON: Head MRI 06/30/2022 TECHNIQUE: Multiplanar MR imaging of the neck was performed before and after intravenous administration of approximately 20 mL of ProHance gadolinium contrast. FINDINGS: There are no masses of the visualized lung apices or elsewhere in the neck. No significant lymphadenopathy, organized fluid collections, inflammatory changes, abnormal enhancement, or significant vascular tortuosity or developmental variations of concern identified. Mild to moderate degenerative changes of the cervical spine are present with mild to moderate central spinal stenosis and neural foraminal narrowing, worst at the C5-C6 level. The visualized paranasal sinuses, oral cavity, pharynx, hypopharynx, larynx, paraspinous soft tissues, salivary glands are unremarkable. IMPRESSION: ESSENTIALLY NEGATIVE NECK MRI. Report reported and signed by Ethan Walsh on 07/16/2022 1246 Normal [facility] MRI Brain w/o + w/on 023 MRI Brain w/o + w/ EXAM: MRI Brain. Multi-sequence multiplanar imaging of the brain was performed. Sequences included T1-weighted, T2-weighted, FLAIR, diffusion-weighted, ADC maps, and susceptibility weighted imaging.Gadolinium contrast given intravenously. REASON FOR EXAM: Paralytic strabismus. Right eye vision changes. Abnormal eye movement COMPARISON: None FINDINGS: CSF spaces: Ventricles sulci and basal cisterns are appropriate for age. No extra-axial fluid. Brain parenchyma: There is a rim of FLAIR hyperintensity surrounding the lateral ventricles probably due to increased extracellular interstitial fluid in the subependymal white matter. Additional few scattered white matter hyperintensities consistent with normal aging. The brain is otherwise of normal signal intensities. No mass, mass effect, or hemorrhage. No restricted diffusion to suggest acute ischemic event. Vascular system: Major intracranial vascular structures are patent by spin-echo criteria Paranasal sinuses: The mastoids and visualized paranasal sinuses are unremarkable Skull base: Soft tissues, fat and muscle planes at the skull base are symmetric and normal. Visualized portions of the globes and orbital contents are within normal limits. No orbital mass. Increased CSF within the pituitary fossa consistent with an empty sella. This is most commonly a normal variant finding almost always asymptomatic, however an empty sella can be a sign of benign intracranial hypertension. Clinical correlation suggested. The visualized regions of the second, third, fourth, fifth, sixth, seventh, and 8th cranial nerves are grossly normal. Basilar structures show no definite aneurysm on these images. IMPRESSION: Mild periventricular hyperintensity. Incidental empty sella syndrome. Unremarkable MRI of the brain stem and orbital areas. No acute intracranial pathology. Report reported and signed by Sean Trejo on 07/01/2022 0911 Normal [facility] [place] [facility] DEMARC[facility] PANCHAL ([id number]) 1955 Date Time Provider Department 06/21/22 DEANDRA BENDER During your visit today, we recorded the following information about you: Delores Mccollum 06/21/2022 12:54 PM Signed [facility] called today. : 1955 Allergies: Codeine, Codeine-Guaifenesin, and Guaifenesin (home) [phone] (cell) Reason for call: Sasha Choudhury:[phone] Asking for the MRI orders and office notes to be faxed over to [facility]. Patient will be having them done there. Patient last appointment: Visit date not found The patients preferred pharmacy has been captured for this encounter? not asked Delores Davis [facility] 06/21/2022 2:03 PM Signed Notes and MRI orders faxed to [facility]. Allergies As of Date: 06/21/2022 Noted Allergy Reaction CODEINE 04/27/2006 11 - Vomiting CODEINE-GUAIFENESIN 03/17/2021 14 - Other: See Comments GUAIFENESIN 05/23/2013 14 - Other: See Comments Date Reviewed: 06/21/2022 Reviewed by: Deandra Bender MD - Fully Assessed Reason for Visit: Orders [681] Prescriptions as of 06/21/2022 - iv contrast (will be provided with radiology test) MRI Brain Inject, intravenously, once for 1 dose.No IV access, insert saline lock prior to beginning of sedation, infusion, injection of imaging exam.Discontinue saline lock post exam. If Pt. has a central line or IVAD, may access for administration according to line specific nursing protocol.Once exam is complete flush line and de-access according to line specific nursing protocol in the MR contrast administration guidelines link - iv contrast (will be provided with radiology test) MRI Neck Inject, intravenously, once for 1 dose. No IV access, insert saline lock prior to the beginning of sedation, infusion, injection of imaging exam. Discontinue saline lock post exam. If Pt. has a central line or IVAD, may access for administration according to line specific nursing protocol. Once exam is complete flush line and de-access according to line specific nursing protocol in the MR contrast administration guidelines link. - albuterol HFA (PROVENTIL HFA, VENTOLIN HFA) 90 mcg/actuation inhaler - atorvastatin (LIPITOR) 40 mg tablet - benzonatate (TESSALON PERLE) 100 mg capsule take 1 capsule by mouth three times a day if needed for cough SWALLOW WHOLE - carvedilol (COREG) 6.25 mg tablet - doxycycline hyclate (VIBRAMYCIN) 100 mg capsule - hydroCHLOROthiazide (HYDRODIURIL, ESIDRIX) 25 mg tablet Take by mouth q 24 HR. - losartan (COZAAR) 25 mg tablet - nitroglycerin sublingual (NITROQUICK) 0.4 mg SL tablet Dissolve under the tongue. - omeprazole (PRILOSEC) 20 mg capsule - tamsulosin (FLOMAX) 0.4 mg - valACYclovir (VALTREX) 1 gram TAKE 1 TABLET BY MOUTH THREE TIMES A DAY FOR 7 DAYS Problem List As Of Date: 06/21/2022 (None) Encounter Status:Closed by BAR HOFFMAN ORQUIDEA on 06/21/22 Normal [facility] XR Ribs w/ PA Chest Left*on 03-13-2022 XR Ribs w/ PA Chest Left* CLINICAL HISTORY: Left rib pain for a few weeks without specific injury. COMPARISON: 2 view chest 01/17/[address] 08/04/2021. TECHNIQUE: An upright PA radiograph of the chest and 4 radiographs of the left ribs were obtained. FINDINGS: There is no displaced fracture, significant pulmonary infiltrate, cardiomegaly, vascular congestion, pleural effusion, pneumothorax, or other significant changes from the prior studies identified. IMPRESSION: NEGATIVE CHEST AND LEFT RIB SERIES. Report reported and signed by Ethan Walsh on 03/13/2022 1254 Normal [facility] XR Chest 2 Views*on 01-18-20 22 XR Chest 2 Views* COMPARISON: none TECHNIQUE: Upright PA and lateral views of the chest were obtained. FINDINGS: Heart is normal in size. Lungs are clear and well expanded. No pleural effusion or pneumothorax. The bony thorax is unremarkable. IMPRESSION: NO ACUTE CARDIOPULMONARY ABNORMALITY. Report reported and signed by AMALIA LOGAN on 01/17/2022 1243 Normal [facility] Tobacco Screening.on 022 Adult depression screening assessment No [facility] [employer] 250 DO Work Phone: Fall risk assessment a) No falls within the last year [facility] [employer] 250 DO Work Phone: Tobacco use status [facility] b) No [facility] daniel 250 DO Work Phone: CT Chest w/Contraston 2021 CT Chest w/Contrast History: Hemoptysis Technique: Multiple contiguous axial images were obtained of the thorax from the thoracic inlet through the upper abdomen after IV administration of iodine containing contrast. 3-D Sagittal and coronal reformats were obtained. All CT scans at this facility use dose modulation, iterative reconstruction, and/or weight based dosing when appropriate to reduce radiation dose to as low as reasonably achievable. Comparison: Chest CT from 02/18/2019 Findings: Visualized portion of the thyroid gland is within normal limits. No axillary, mediastinal, or hilar lymphadenopathy. Esophagus is within normal limits. There is a three-vessel aortic arch. No thoracic aortic aneurysm. Heart size is within normal limits. No significant pericardial effusion. Airways are patent. No bronchiectasis. No pulmonary nodule or mass. No consolidation, pleural effusion, or pneumothorax. There are faint areas of increased interstitial pulmonary markings at the periphery of the right upper lobe and right middle lobe which are similar to the previous examinations and most likely represent long-term sequela, scarring from prior infection, inflammation. There is a 13 mm nodule at the posterior periphery of the right lung, axial image 28, which has been present since previous studies and has remained unchanged. The visualized portions of the upper abdomen appear within normal limits. Bones of the thorax are within normal limits. IMPRESSION: There are no acute intrathoracic changes. There are no new pulmonary nodules since the prior study from 02/18/2018. There are few areas of increased markings at the periphery of the right lung indicating scarring. Report reported and signed by AMALIA LOGAN on 08/04/2021 1346 Normal [facility] Complete Blood Count with Au to Diffon 07-29-2021 Basophils (Bld) [#/Vol] 0.05 10*3/uL Normal 0.00-0.20 [facility] Comment on above: Performed By: #### C JOSE ANTONIO, CBCAD #### [facility] [address], [place] [id number] Basophils/100 WBC (Bld) 0.8 % Normal [facility] Comment on above: Performed By: #### C MP, CBCAD #### [facility] [address], [place] [id number] Eosinophils (Bld) [#/Vol] 0.46 10*3/uL Normal 0.02-0.50 [facility] Comment on above: Performed By: #### C MP, CBCAD #### [facility] [address], [place] [id number] Eosinophils/100 WBC (Bld) 7.7 % Normal [facility] Comment on above: Performed By: #### C MP, CBCAD #### [facility] [address], [place] [id number] Erythrocyte distribution width (RBC) [Ratio] 13.3 % Normal 11.0-15.0 [facility] Comment on above: Performed By: #### C MP, CBCAD #### [facility] [address], [place] [id number] Hematocrit (Bld) [Volume fraction] 42.2 % Normal 38.5-50.0 [facility] Comment on above: Performed By: #### C MP, CBCAD #### [facility] [address], [place] [id number] Hemoglobin (Bld) [Mass/Vol] 14.5 g/dL Normal 13.0-17.1 [facility] Comment on above: Performed By: #### C MP, CBCAD #### [facility] [address], [place] [id number] Lymphocytes (Bld) [#/Vol] 1.6 10*3/uL Normal 0.9-3.9 [facility] Comment on above: Performed By: #### C MP, CBCAD #### [facility] [address], [place] [id number] Lymphocytes/100 WBC (Bld) 26.1 % Normal [facility] Comment on above: Performed By: #### C MP, CBCAD #### [facility] [address], [place] [id number] MCH (RBC) [Entitic mass] 29.7 pg Normal 27.0-33.0 [facility] Comment on above: Performed By: #### C MP, CBCAD #### [facility] [address], [place] [id number] MCHC (RBC) [Mass/Vol] 34.4 g/dL Normal 32.0-36.0 [facility] Comment on above: Performed By: #### C MP, CBCAD #### [facility] [address], [place] [id number] MCV (RBC) [Entitic vol] 86 fL Normal 80-100 [facility] Comment on above: Performed By: #### C MP, CBCAD #### [facility] [address], [place] [id number] Monocytes (Bld) [#/Vol] 0.9 10*3/uL Normal 0.2-0.9 [facility] Comment on above: Performed By: #### C MP, CBCAD #### [facility] [address], [place] [id number] Monocytes/100 WBC (Bld) 14.6 % Normal [facility] Comment on above: Performed By: #### C MP, CBCAD #### [facility] [address], [place] [id number] Neutrophils (Bld) [#/Vol] 3.0 10*3/uL Normal 1.5-7.8 [facility] Comment on above: Performed By: #### C MP, CBCAD #### [facility] [address], [place] [id number] Neutrophils/100 WBC (Bld) 50.5 % Normal [facility] Comment on above: Performed By: #### C MP, CBCAD #### [facility] [address], [place] [id number] Platelet mean volume (Bld) [Entitic vol] 10.90 fL Normal 7.50-12.50 [facility] Comment on above: Performed By: #### C MP, CBCAD #### [facility] [address], [place] [id number] Platelets (Bld) [#/Vol] 166 10*3/uL Normal 140-400 [facility] Comment on above: Performed By: #### C MP, CBCAD #### [facility] [address], [place] [id number] RBC (Bld) [#/Vol] 4.89 10*6/uL Normal 4.20-5.80 [facility] Comment on above: Performed By: #### C MP, CBCAD #### [facility] [address], [place] [id number] RDW-SD 41.2 fL Normal 37.0-50.0 [facility] Comment on above: Performed By: #### C MP, CBCAD #### [facility] [address], [place] [id number] WBC (Bld) [#/Vol] 5.9 10*3/uL Normal 3.8-11.0 [facility] [place] [facility] Comment on above: Performed By: #### C MP, CBCAD #### [facility] [address], [place] [id number] Comprehensive Metabolic Pane maria esther 07-29-2021 Albumin [Mass/Vol] 4.6 g/dL Normal 3.6-5.1 Johann prather [place] [facility] Comment on above: Performed By: #### C MP, CBCAD #### [facility] [address], [place] [id number] Albumin/Globulin [Mass ratio] 2.7 {ratio} High 1.0-2.5 [facility] Comment on above: Performed By: #### C MP, CBCAD #### [facility] [address], [place] [id number] ALP [Catalytic activity/Vol] 74 U/L Normal 40-129 [facility] Comment on above: Performed By: #### C JOSE ANTONIO, CBCAD #### [facility] [address], [place] [id number] ALT [Catalytic activity/Vol] 55 U/L High 9-46 [facility] Comment on above: Result Comment: 04/27 Female reference range changed. Performed By: #### C JOSE ANTONIO, CBCAD #### [facility] [address], [place] [id number] Anion gap [Moles/Vol] 16 mmol/L Normal 12-20 [facility] Comment on above: Result Comment: Effe ctive 06/02/2019 reference range changed. Performed By: #### C JOSE ANTONIO, CBCAD #### [facility] [address], [place] [id number] AST [Catalytic activity/Vol] 39 U/L Normal 10-40 [facility] Comment on above: Performed By: #### C MP, CBCAD #### [facility] [address], [place] [id number] BUN/CREA 13 Ratio Normal 6-22 [facility] Comment on above: Performed By: #### C MP, CBCAD #### [facility] [address], [place] [id number] Calcium [Mass/Vol] 9.0 mg/dL Normal 8.6-10.2 Johann prather [place] [facility] Comment on above: Performed By: #### C MP, CBCAD #### [facility] [address] [place], [place] [id number] Chloride [Moles/Vol] 107 mmol/L Normal 98-107 [facility] Comment on above: Performed By: #### C MP, CBCAD #### [facility] [address] [place], [place] [id number] CO2 [Moles/Vol] 20 mmol/L Normal 20-31 [facility] Comment on above: Performed By: #### C MP, CBCAD #### [facility] [address] [place], [place] [id number] Creatinine [Mass/Vol] 1.0 mg/dL Normal 0.7-1.4 [facility] Comment on above: Performed By: #### C MP, CBCAD #### [facility] [address] [place], [place] [id number] eGFRAA 94 mL/min/1.73m2 Normal >60 [facility] Comment on above: Performed By: #### C MP, CBCAD #### [facility] [address] [place], [place] [id number] eGFRNAA 78 mL/min/1.73m2 Normal >60 [facility] Comment on above: Performed By: #### C MP, CBCAD #### [facility] [address] [place] [id number] Globulin (S) [Mass/Vol] 1.7 g/dL Low 1.9-3.7 [facility] Comment on above: Performed By: #### C MP, CBCAD #### [facility] [address] [place] [id number] Glucose [Mass/Vol] 121 mg/dL High 65-99 Johann prather [place] [facility] Comment on above: Result Comment: For FASTING Glucose --- ADA reference ranges: Normal 65-99 mg/dl Prediabetes 100-125 Diabetes >/= 126 Performed By: #### C MP, CBCAD #### [facility] [address] [place], [place] [id number] Potassium [Moles/Vol] 4.2 mmol/L Normal 3.5-5.5 [facility] Comment on above: Performed By: #### C MP, CBCAD #### [facility] [address], [place] [id number] Protein [Mass/Vol] 6.3 g/dL Normal 6.1-8.1 [facility] Comment on above: Performed By: #### C MP, CBCAD #### [facility] [address], [place] [id number] Sodium [Moles/Vol] 139 mmol/L Normal 135-146 [facility] Comment on above: Performed By: #### C MP, CBCAD #### [facility] [address], [place] [id number] TBIL <0.3 Normal [facility] Comment on above: Performed By: #### C MP, CBCAD #### [facility] [address], [place] [id number] Urea nitrogen [Mass/Vol] 12 mg/dL Normal 7-25 [facility] Comment on above: Performed By: #### C MP, CBCAD #### [facility] [address], [place] [id number] Microalbumin (with Creat)on 07-29-2021 mALB <1.2 Low [facility] Comment on above: Result Comment: Unab le to calculate mALB/Crea ratio, mALB is <1.2 mg/dL mALB reference range not established. Performed By: #### m ALBC #### [facility] [address], [place] [id number] UCREA 85 mg/dL Normal 39-259 [facility] Comment on above: Performed By: #### m ALBC #### [facility] [address], [place] [id number] Prostatic Specific Antigen, Totalon 07-29-2021 TPSA 2.330 ng/mL Normal <4.000 [facility] Comment on above: Result Comment: PSA Test Method: ECLIA/Brandi e 601 Performed By: #### P SA #### [facility] [address], [place] [id number] Q - URINALYSIS,COMPLETEon Appearance (U) CLEAR Normal CLEAR [facility] Comment on above: Order Comment: [facility] performed at: [place] [employer], [address] , [address] [place] [address], [address] [place] [address], Plate Sensitizer: Rafi Agustin MD [facility] Date/Time: [facility] Results Received Date/Time: [facility] Reported Date/Time: Performed By: #### 3 4F #### [facility] [address] [place] [address] BACTERIA NONE SEEN Normal NONE SEEN [facility] Comment on above: Order Comment: [facility] performed at: [place] [employer] [facility], [address] , [address] [place] [address], [address] [place] [address], Plate Sensitizer: Rafi Agustin MD [facility] Date/Time: [facility] Results Received Date/Time: [facility] Reported Date/Time: Performed By: #### 3 4F #### [facility] [address] [place] [address] Bilirubin Ql (U) Negative Normal NEGATIVE [facility] Comment on above: Order Comment: [facility] performed at: [place] [employer] [facility], [address] , [address] [place] [address], [address] [place] [address], Plate Sensitizer: Rafi Agustin MD [facility] Date/Time: [facility] Results Received Date/Time: [facility] Reported Date/Time: Performed By: #### 3 4F #### [facility] [address] [place] [address] Color (U) YELLOW Normal YELLOW [facility] Comment on above: Order Comment: [facility] performed at: [place] [employer] [facility], [address] , [address] [place] [address], [address] [place] [address], Plate Sensitizer: Rafi Agustin MD [facility] Date/Time: [id number] [facility] Results Received Date/Time: [facility] Reported Date/Time: Performed By: #### 3 4F #### [facility] [address] [place] [address] Glucose Ql (U) Negative Normal NEGATIVE [facility] Comment on above: Order Comment: [facility] performed at: Q, [employer] [facility], [address] [place] [address], [address] [place] [address], [address] [place] [address], Plate Sensitizer: Rafi Agustin MD [facility] Date/Time: [facility] Results Received Date/Time: [facility] Reported Date/Time: Performed By: #### 3 4F #### [facility] [address] [place] [address] HYALINE CAST NONE SEEN Normal NONE SEEN [facility] Comment on above: Order Comment: [facility] performed at: [place] [employer] [facility], [address] [place] [address], [address] [place] [address], [address] [place] [address], Plate Sensitizer: Rafi Agustin MD [facility] Date/Time: [facility] Results Received Date/Time: [facility] Reported Date/Time: Performed By: #### 3 4F #### [facility] [address] [place] [address] Ketones Ql (U) Negative Normal NEGATIVE [facility] Comment on above: Order Comment: [facility] performed at: [place] [employer] [facility], [address] [place] [address], [address] [place] [address], [address] [place] [address], Plate Sensitizer: Rafi Agustin MD [facility] Date/Time: [facility] Results Received Date/Time: [facility] Reported Date/Time: Performed By: #### 3 4F #### [facility] [address] [place] [address] Leukocyte esterase Test strip Ql (U) Negative Normal NEGATIVE [facility] Comment on above: Order Comment: [facility] performed at: [facility], [employer], [address] , [address] [place] [address], [address] [place] [address], Plate Sensitizer: Rafi Agustin MD [facility] Date/Time: [facility] Results Received Date/Time: [facility] Reported Date/Time: Performed By: #### 3 4F #### [facility] [address] [place] [address] Nitrite Ql (U) Negative Normal NEGATIVE [facility] Comment on above: Order Comment: [facility] performed at: [place] [employer] [facility], [address] [place] [address], [address] [place] [address], [address] [place] [address], Plate Sensitizer: Rafi Agustin MD [facility] Date/Time: [facility] Results Received Date/Time: [facility] Reported Date/Time: Performed By: #### 3 4F #### [facility] [address] [place] [address] OCCULT BLOOD Negative Normal NEGATIVE [facility] Comment on above: Order Comment: [facility] performed at: [place] [employer] [facility], [address] [place] [address], [address] [place] [address], [address] [place] [address], Plate Sensitizer: Rafi Agustin MD [facility] Date/Time: [facility] Results Received Date/Time: [facility] Reported Date/Time: Performed By: #### 3 4F #### [facility] [address] [place] [address] pH (U) 6.5 [pH] Normal 5.0-8.0 [facility] Comment on above: Order Comment: [facility] performed at: [place] [employer] [facility], [address] [place] [address], [address] [place] [address], [address] [place] [address], Plate Sensitizer: Rafi Agustin MD [facility] Date/Time: [facility] Results Received Date/Time: [facility] Reported Date/Time: Performed By: #### 3 4F #### [facility] [address] [place] [address] Protein Ql (U) Negative Normal NEGATIVE [facility] Comment on above: Order Comment: [facility] performed at: [employer] [employer] [facility], [address] [place] [address], [address] [place] [address], [address] [place] [address], Plate Sensitizer: Rafi Agustin MD [facility] Date/Time: [facility] Results Received Date/Time: [facility] Reported Date/Time: Performed By: #### 3 4F #### [facility] [address] [place] [address] RBC NONE SEEN Normal < OR = 2 [facility] Comment on above: Order Comment: [facility] performed at: [place] [employer] [facility], [address] [place] [address], [address] [place] [address], [address] [place] [address], Plate Sensitizer: Rafi Agustin MD [facility] Date/Time: [facility] Results Received Date/Time: [facility] Reported Date/Time: Performed By: #### 3 4F #### [facility] [address] [place] [address] Specific gravity (U) [Rel density] 1.012 Normal 1.001-1.035 [facility] Comment on above: Order Comment: [facility] performed at: [employer] [employer] [facility], [address] [place] [address], [address] [place] [address], [address] [place] [address], Plate Sensitizer: Rafi Agustin MD [facility] Date/Time: [facility] Results Received Date/Time: [facility] Reported Date/Time: Performed By: #### 3 4F #### [facility] [address] [place] [address] SQUAMOUS EPITHELIAL CELLS NONE SEEN Normal < OR = 5 [facility] Comment on above: Order Comment: [facility] performed at: [place] [employer] [facility], [address] [place] [address], [address] [place] [address], [id number], Plate Sensitizer: Rafi Agustin MD [facility] Date/Time: [facility] Results Received Date/Time: [facility] Reported Date/Time: Performed By: #### 3 4F #### [facility] [address] [place] [address] WBC NONE SEEN Normal < OR = 5 [facility] Comment on above: Order Comment: [facility] performed at: [facility] [employer] [facility], [address] [facility], [address] [place], [address], Plate Sensitizer: Rafi Agustin MD [facility] Date/Time: [facility] Results Received Date/Time: [facility] Reported Date/Time: Performed By: #### 3 4F #### [facility] [address] [place] [address] No Panel Information [facility] Vital Signs Date Time Vital Sign Value Performing Clinician Facility 06-30-2023 10:23-0500 Body mass index (BMI) [Ratio] 35.28 kg/m2 Hosea [employer] Work Phone: [facility] 06-30-2023 10:23-0500 Body temperature 97.81 [degF] Hosea Sifuentes [employer] Work Phone: [facility] 06-30-2023 10:23-0500 Body weight 105.23 kg Hosea Dormir Phone: [facility] [employer] 06-30-2023 10:23-0500 Diastolic blood pressure 82 mm[Hg] Hosea Sifuentes [employer] Work Phone: [facility] 06-30-2023 10:23-0500 Heart rate 86 /min Hosea Sifuentes [employer] Work Phone: [facility] 06-30-2023 10:23-0500 Respiratory rate 18 /min Hosea Sifuentes [employer] Work Phone: [facility] [employer] 06-30-2023 10:23-0500 SaO2% (BldA) [Mass fraction] 94 % Hosea Sifuentes [employer] Work Phone: [facility] 06-30-2023 10:23-0500 Systolic blood pressure 138 mm[Hg] Hosea Sifuentes DO Work Phone: [facility] 06-14-2023 14:25-0500 Body temperature 97.7 [degF] MD Sera Flower Work Phone: [facility] 06-14-2023 14:25-0500 Diastolic blood pressure 74 mm[Hg] MD Sera Flower Work Phone: [facility] 06-14-2023 14:25-0500 Heart rate 78 /min MD Sera Flower Work Phone: [facility] 06-14-2023 14:25-0500 Respiratory rate 20 /min MD Sera Flower Work Phone: [facility] 06-14-2023 14:25-0500 SaO2% (BldA) [Mass fraction] 95 % MD Sera Flower Work Phone: [facility] 06-14-2023 14:25-0500 Systolic blood pressure 155 mm[Hg] MD Sera Flower Work Phone: [facility] 06-14-2023 11:48-0500 Body height 172.72 cm MD Sera Flower Work Phone: [facility] 06-14-2023 11:48-0500 Body weight 108.9 kg MD Sera Flower Work Phone: [facility] 03-23-2023 09:34-0400 Body height 172.7 cm Rene Castro MD Work Phone: [facility] 03-23-2023 09:34-0400 Body mass index (BMI) [Ratio] 35.12 kg/m2 Rene Castro MD Work Phone: [facility] 03-23-2023 09:34-0400 Body weight 104.78 kg Rene Castro MD Work Phone: [facility] 03-23-2023 09:34-0400 Diastolic blood pressure 72 mm[Hg] Rene Castro MD Work Phone: [facility] 03-23-2023 09:34-0400 Heart rate 60 /min Rene Castro MD Work Phone: [facility] 03-23-2023 09:34-0400 Systolic blood pressure 128 mm[Hg] Rene Castro MD Work Phone: [facility] 09-07-2022 11:31-0400 Body height 172.72 cm Sera Flower Work Phone: WC[facility]Lrqrpjnnpk-Myxxe daniel 250 DO Work Phone: 09-07-2022 11:31-0400 Body mass index (BMI) [Ratio] 36.8 kg/m2 Sera Flower Work Phone: [facility]-Ynscrffuni-Vkzrj daniel 250 DO Work Phone: 09-07-2022 11:31-0400 Body surface area Derived from formula 2.22 m2 Sera Flower Work Phone: UP-Xymnphzghn-Glgrf daniel 250 DO Work Phone: 09-07-2022 11:31-0400 Body weight 109.77 kg Sera Flower Work Phone: NV-Jieuuigaqn-Jggan daniel 250 DO Work Phone: 09-07-2022 11:31-0400 Diastolic blood pressure 68 mm[Hg] Sera Flower Work Phone: HU-Anqbxypnhj-Sgqdr daniel 250 DO Work Phone: 09-07-2022 11:31-0400 Heart rate 76 /min Sera Flower Work Phone: ON-Spzanlftlq-Jrjxb daniel 250 DO Work Phone: 09-07-2022 11:31-0400 Systolic blood pressure 124 mm[Hg] Sera Flower Work Phone: CN-Wozeoufvfg-Igsyj daniel 250 DO Work Phone: 09-05-2021 14:04-0400 Body height 172.72 cm Sera Flower Work Phone: [facility] 250 DO Work Phone: 09-05-2021 14:04-0400 Body mass index (BMI) [Ratio] 36.49 kg/m2 Sera Flower Work Phone: [facility] 250 DO Work Phone: 09-05-2021 14:04-0400 Body surface area Derived from formula 2.21 m2 Sera Flower Work Phone: [facility] DO Work Phone: 09-05-2021 14:04-0400 Body weight 108.86 kg Sera Flower Work Phone: [facility] [employer] 250 DO Work Phone: 09-05-2021 14:04-0400 Diastolic blood pressure 82 mm[Hg] Sera Flower Work Phone: [facility] [employer] 250 DO Work Phone: 09-05-2021 14:04-0400 Heart rate 70 /min Sera Flower Work Phone: [facility] [employer] 250 DO Work Phone: 09-05-2021 14:04-0400 Systolic blood pressure 132 mm[Hg] Sera Flower Work Phone: [facility] 250 DO Work Phone: Encounters Encounter Date Encounter Type Care Provider Facility Start: 07-30-2023 End: 07-30-2023 ambulatory SERA FLOWER Not Available Start: 06-30-2023 End: 06-30-2023 ambulatory HOSEA SIFUENTES Not Available Start: 06-30-2023 End: 06-30-2023 Office outpatient visit 25 minutes Hosea Sifuentes DO Work Phone: [facility] Comment on above: Acute exacerbation o f chronic obstructive pulmonary disease (CMS/HCC) (Primary Dx) Start: 06-27-2023 End: 06-27-2023 ambulatory SERA FLOWER Not Available Start: 06-14-2023 End: 06-14-2023 Emergency department patient visit Jasper Martinez Facility:[facility] Start: 06-14-2023 End: 06-14-2023 ambulatory RENZO WEAVER Not Available Start: 06-14-2023 End: 06-14-2023 Emergency department patient visit MD Sera Flower Work Phone: [facility] Work Phone: Start: 05-19-2023 End: 05-19-2023 ambulatory BRITTANY FIGUEROA Not Available Start: 03-23-2023 End: 03-23-2023 ambulatory [facility] Ambulatory Start: 03-23-2023 End: 03-23-2023 Office outpatient visit 25 minutes Rene Castro MD Work Phone: [facility] Comment on above: Coronary artery dise 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; Essential hypertension; Mixed hyperlipidemia; Ischemic cardiomyopathy; Status post coronary artery stent placement; Class 2 obesity with body mass index (BMI) of 35.0 to 35.9 in adult, unspecified obesity type, unspecified whether serious comorbidity present Start: 02-06-2023 Other Sera Flower Work Phone: [facility] [address] DO Work Phone: Start: 02-05-2023 End: 02-05-2023 ambulatory Rene Castro Facility:[facility] Start: 02-05-2023 End: 02-05-2023 ambulatory MD Sera Flower Work Phone: [facility] Work Phone: Start: 02-05-2023 End: 02-05-2023 Patient encounter procedure MD Sera Flower Work Phone: [facility]Electrodiagnostics Work Phone: Start: 02-05-[address] Sera Flower Facility:[id number] Start: 01-30-2023 AUDIT Sera Barbara Flower Work Phone: [facility] 600 DO Work Phone: Start: 01-15-2023 Other Sera Barbara Flower Work Phone: [facility] [address] DO Work Phone: Start: 01-12-2023 Chart Update Sera Barbara Flower Work Phone: [facility] [facility] DO Work Phone: Start: 01-04-[address] Sera Flower Facility:[id number] Start: 01-03-[address] Sera Flower Facility:[id number] Start: 11-14-2022 End: 11-14-2022 ambulatory DEANDRA BENDER Facility:[facility] Start: 11-14-2022 End: 11-14-2022 Patient encounter procedure Deandra Bender MD Work Phone: Ophthalmology Comment on above: Clonic hemifacial sp asm, right (Primary Dx) Start: 09-07-2022 Office outpatient vi sit 25 minutes Sera Barbara Flower Work Phone: [facility] DO Work Phone: Start: 09-07-2022 ambulatory Rene Michaelsahim Facility : Start: 08-08-2022 End: 08-08-2022 ambulatory DEANDRA BENDER Facility:[facility] Start: 08-08-2022 End: 08-08-2022 Patient encounter procedure Deandra Bender MD Work Phone: Ophthalmology Comment on above: Clonic hemifacial sp asm, right (Primary Dx) Start: 06-21-2022 Telephone encounter Deandra Bender MD Work Phone: [facility] [place] Comment on above: Orders Start: 06-21-2022 End: 06-21-2022 ambulatory DEANDRA BENDER Facility:[facility] Start: 06-21-2022 End: 06-21-2022 Patient encounter procedure Deandra Bender MD Work Phone: Ophthalmology Comment on above: Clonic hemifacial sp asm, right (Primary Dx); Paralytic strabismus; Jada's syndrome Start: 05-01-2022 End: 05-01-2022 ambulatory MAU RANDLE Facility:[facility] Start: 05-01-2022 End: 05-01-2022 Patient encounter procedure Mau Randle OD Work Phone: Ophthalmology Comment on above: Eyelid myokymia (Velma maren Dx); Dry eye syndrome of both eyes; Hyperopia of both eyes with astigmatism and presbyopia Start: 09-05-2021 Office outpatient vi sit 25 minutes Sera Flower Work Phone: [facility] [address] DO Work Phone: Procedures Date Procedure Procedure Detail Performing Clinician Start: 06-14-2023 SARS-CoV-2, Influenza & RSV (PCR) MD Sera Flower Work Phone: Start: 06-14-2023 Plain chest X-ray MD Sera Flower Work Phone: Start: 03-23-2023 Alanine aminotransferase [Enzymatic activity/volume] in Serum or Plasma RENE CASTRO Start: 03-23-2023 Aspartate aminotransferase [Enzymatic activity/volume] in Serum or Plasma RENE CASTRO Start: 03-23-2023 Basic metabolic 2000 panel - Serum or Plasma RENE CASTRO Start: 03-23-2023 CBC panel - Blood by Automated count RENE CASTRO Start: 03-23-2023 Lipid panel RENE CASTRO Start: 03-20-2023 Echocardiography RENE CASTRO Start: 03-20-2023 Echocardiography Generic Provider Scanning Start: 02-13-2023 History of placement of stent for coronary artery disease Status post coronary artery stent placement Rene Castro MD Work Phone: Start: 11-14-2022 [facility] innervated facial nrv unil Deandra Bender MD Work Phone: Start: 08-08-2022 [facility] innervated facial nrv unil Rebekke Nathanael COLLISION ESTIMATOR.BIOINFORMATICS SPECIALIST Work Phone: Start: 07-28-2019 Colonoscopy Hosea Sifuentes DO Work Phone: History of placement of stent for coronary artery disease Status post coronary artery stent placement Sera Flower Work Phone: History of placement of stent for coronary artery disease Status post coronary artery stent placement Rene Castro MD Work Phone: Percutaneous translu vijay coronary angioplasty Sera Flower Work Phone: Placement of stent i n coronary artery Sera Flower Work Phone: Repair of shoulder Sera Flower Work Phone: Plan of Treatment Date Care Activity Detail Author Start: 07-27-2029 Screening for malignant neoplasm of colon [facility] Start: 08-11-2027 DTaP/Tdap/Td Vaccines (2 - Td or Tdap) DTaP/Tdap/Td Vaccines (2 - Td or Tdap) [facility] Start: 03-20-2024 Echocardiography Echocardiogram [facility] Start: 10-18-2023 End: 10-18-2023 Patient encounter procedure 10/18/2023 9:30 AM EDT Office Visit [facility] [address] [place] [address] Rene Castro MD [address] [place] [address] [facility] Start: 09-20-2023 End: 09-20-2023 Patient encounter procedure 09/20/2023 1:00 PM EDT Office Visit [facility] [address] [place] [address] Sera Flower MD [address] [place] [address] [facility] Start: 03-23-2023 End: 03-23-2024 Alanine aminotransferase [Enzymatic activity/volume] in Serum or Plasma by With P-5'-P Alanine Aminotransferase Lab Routine Coronary artery dise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 Essential hypertension Mixed hyperlipidemia Ischemic cardiomyopathy Status post coronary artery stent placement Class 2 obesity with body mass index (BMI) of 35.0 to 35.9 in adult, unspecified obesity type, unspecified whether serious comorbidity present Expected: 03/23/2023 (Approximate), Expires: 03/23/2024 [facility] Work Phone: Comment on above: Expected: 03/23/2023 (Approximate), Expi res: 03/23/2024 Start: 03-23-2023 End: 03-23-2024 Aspartate aminotransferase [Enzymatic activity/volume] in Serum or Plasma by With P-5'-P Aspartate Aminotransferase Lab Routine Coronary artery dise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 Essential hypertension Mixed hyperlipidemia Ischemic cardiomyopathy Status post coronary artery stent placement Class 2 obesity with body mass index (BMI) of 35.0 to 35.9 in adult, unspecified obesity type, unspecified whether serious comorbidity present Expected: 03/23/2023 (Approximate), Expires: 03/23/2024 [facility] Work Phone: Comment on above: Expected: 03/23/2023 (Approximate), Expi res: 03/23/2024 Start: 03-23-2023 End: 03-23-2024 Basic metabolic 2000 panel - Serum or Plasma Basic Metabolic Panel Lab Routine Coronary artery dise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 Essential hypertension Mixed hyperlipidemia Ischemic cardiomyopathy Status post coronary artery stent placement Class 2 obesity with body mass index (BMI) of 35.0 to 35.9 in adult, unspecified obesity type, unspecified whether serious comorbidity present Expected: 03/23/2023 (Approximate), Expires: 03/23/2024 [facility] Work Phone: Comment on above: Expected: 03/23/2023 (Approximate), Expi res: 03/23/2024 Start: 03-23-2023 End: 03-23-2024 CBC panel - Blood by Automated count CBC Lab Routine Coronary artery dise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 Essential hypertension Mixed hyperlipidemia Ischemic cardiomyopathy Status post coronary artery stent placement Class 2 obesity with body mass index (BMI) of 35.0 to 35.9 in adult, unspecified obesity type, unspecified whether serious comorbidity present Expected: 03/23/2023 (Approximate), Expires: 03/23/2024 [facility] Service Area Work Phone: Comment on above: Expected: 03/23/2023 (Approximate), Expi res: 03/23/2024 Start: 03-23-2023 End: 03-23-2024 Lipid 1996 panel - Serum or Plasma Lipid Panel Lab Routine Coronary artery dise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 Essential hypertension Mixed hyperlipidemia Ischemic cardiomyopathy Status post coronary artery stent placement Class 2 obesity with body mass index (BMI) of 35.0 to 35.9 in adult, unspecified obesity type, unspecified whether serious comorbidity present Expected: 03/23/2023 (Approximate), Expires: 03/23/2024 [facility] Work Phone: Comment on above: Expected: 03/23/2023 (Approximate), Expi res: 03/23/2024 Start: 03-15-2023 FUV, Provider: Rene Castro, Status: Pen, Time: 9:20 AM FUV, Provider: Rene Castro, Status: Pen, Time: 9:20 AM [facility] 250 DO Work Phone: Start: 01-26-2023 Influenza vaccination [facility] Start: 09-07-2022 FUV, Provider: Rene Castro, Status: Pen, Time: 8:30 AM FUV, Provider: Rene Castro, Status: Pen, Time: 8:30 AM [facility] [facility] DO Work Phone: Start: 05-28-2022 ADVANCE DIRECTIVE DISCUSSION ADVANCE DIRECTIVE DISCUSSION [facility] Start: 05-28-2022 DEPRESSION ASSESSMENT DEPRESSION ASSESSMENT [facility] Start: 01-26-2022 Influenza vaccination INFLUENZA (#1) [facility] Start: 05-28-2021 ADVANCE DIRECTIVE DISCUSSION ADVANCE DIRECTIVE DISCUSSION [facility] Start: 05-28-2021 DEPRESSION ASSESSMENT DEPRESSION ASSESSMENT [facility] Start: 2018 Abdominal aortic aneurysm screening Abdominal Aortic Aneurysm (AAA) Screening [facility] Start: 2018 PNEUMOCOCCAL: 65+ (1 - PCV) PNEUMOCOCCAL: 65+ (1 - PCV) [facility] Start: 02-15-2017 Zoster Vaccines (2 of 3) Zoster Vaccines (2 of 3) [facility] Start: 2003 SHINGRIX VACCINE (1 of 2) SHINGRIX VACCINE (1 of 2) [facility] Start: 1998 COLOGUARD (FIT-DNA) COLOGUARD (FIT-DNA) [facility] Start: 1998 Colonoscopy COLONOSCOPY [facility] Start: 1998 COLORECTAL CANCER SCREENING COLORECTAL CANCER SCREENING [facility] Start: [address] COLONOGRAPHY [facility] Start: 1998 DIABETES SCREEN DIABETES SCREEN [facility] Start: 1998 FECAL OCCULT BLOOD FECAL OCCULT BLOOD [facility] Start: 1998 SIGMOIDOSCOPY SIGMOIDOSCOPY [facility] Start: 01-02-1988 LIPID SCREEN LIPID SCREEN [facility] Start: 01-02-1972 Urine microalbumin profile DTAP,TDAP,TD (1 - Tdap) [facility] Start: 1971 Diabetes mellitus screening Diabetes Screening [facility] Start: 1971 HEPATITIS C SCREENING HEPATITIS C SCREENING [facility] Start: 1971 Hepatitis C screening Hepatitis C Screening [facility] Start: 1953 COVID-19 VACCINE (#1) COVID-19 VACCINE (#1) [facility] Start: 1953 Creatinine measurement Creatinine Level [facility] Start: 1953 Lipid panel Lipid Panel [facility] Start: 1953 Medicare Annual Wellness Visit Medicare Annual Wellness Visit (AWV) [facility] Start: 1953 Potassium measurement Potassium Level [facility] Start: 1953 Screening for malignant neoplasm of colon [facility] End: 07-21-2023 Mri brain brain stem w/o w/contrast material MRI BRAIN WO/W IVCON Radiology Routine Paralytic strabismus 1 Occurrences starting 06/21/2022 until 07/21/2023 [facility] Work Phone: Comment on above: 1 Occurrences starting 06/21/2022 until 07/21/2023 End: 07-21-2023 Mri orbit face & neck w/o & w/contrast matrl MRI SOFT TISSUE NECK WO/W IVCON Radiology Routine 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 until 07/21/2023 [facility] Work Phone: Comment on above: 1 Occurrences starting 06/21/2022 until 07/21/2023 Patient Education COPD Exacerbat ion, Adult ED [facility] Work Phone: Patient referral [facility] Work Phone: [facility] Immunizations Immunization Date Immunization Notes Care Provider Sharron baron 04-16-2019 Seasonal trivalent influenza vaccine, adjuvanted, preservative free Sera Flower Work Phone: [place] [address] DO Work Phone: 04-16-2019 influenza virus vacc ine, unspecified formulation Rene Castro MD Work Phone: [facility] Work Phone: 03-28-2019 influenza virus vacc ine, unspecified formulation Sera Flower Work Phone: [place] [address] DO Work Phone: 08-16-2018 influenza, seasonal, injectable, preservative free eSra Flower Work Phone: [place] [address] DO Work Phone: 08-16-2018 pneumococcal conjuga te vaccine, 13 valent Sera Flower Work Phone: [place] [address] DO Work Phone: 05-28-2018 pneumococcal polysaccharide vaccine, 23 valent Sera Flower Work Phone: [place] [address] DO Work Phone: 08-10-2017 tetanus toxoid, redu daniel diphtheria toxoid, and acellular pertussis vaccine, adsorbed Sera Flower Work Phone: [place] [address] DO Work Phone: 12-21-2016 zoster vaccine, live Sera Flower Work Phone: [facility] 250 DO Work Phone: 09-30-2012 pneumococcal polysaccharide vaccine, 23 valent Sera Flower Work Phone: [place] [address] DO Work Phone: 09-30-2012 pneumococcal vaccine , unspecified formulation Hosea Sifuentes DO Work Phone: [facility] 05-28-2010 influenza virus vacc ine, unspecified formulation Rene Castro MD Work Phone: [facility] Work Phone: 03-28-2010 influenza, seasonal, injectable, preservative free Rene Castro MD Work Phone: [facility] Work Phone: 2007 TD(adult) unspecifie d formulation Hosea Sifuentes DO Work Phone: [facility] influenza virus vacc ine, unspecified formulation Sera Flower Work Phone: [place] [address] DO Work Phone: Comment on above: Mar 20102010 Payers Date Payer Category Payer Private Health Insurance HUMANA HUMANA HMO/POS [id number] 2023-Present [address] [address] [place] [address] [id number] 2023 Self-pay [id number] 2022 [employer] ( and others) [id number] 2022 [employer] ( and others) [id number] 2022 Medicare [id number] 2021 [employer] ( and others) [id number] 2021 Unknown 2017 Medicare [id number] 2017 Medicare [id number] 1953 Unknown [id number] 1953 Unknown [id number] 356 1953 Unknown [id number]. 1068 1953 Unknown [id number] 1068 1953 Unknown [id number]. 1244 1953 Unknown [id number]. 1259 1953 Unknown [id number]. 1259 1953 Unknown [id number]. 1259 1953 Unknown [id number]. 1259 1953 Unknown [id number] 1259 [employer] ( and others) [id number] Unknown [id number] 531 Unknown [id number] 531 Social History Date Type Detail Facility Start: 03-23-2023 End: 06-30-2023 No alcohol use No alcohol use [facility] [address] DO Work Phone: Comment on above: 5 CUPS OF COFFEE ANICETO LY; QUIT IN 1984; Start: 05-01-2022 End: 06-14-2023 Tobacco smoking status CTIS Never smoked tobacco [facility] Start: 05-01-2022 End: 03-23-2023 Tobacco use and exposure Smokeless tobacco non-user [facility] Start: 05-01-2022 End: 11-14-2022 Alcohol intake Ex-drinker (finding) [facility] Start: 1955 Sex Assigned At Not on file C [facility] Start: 10-15-2020 End: 06-27-2023 Tobacco smoking status CTIS Ex-smoker (finding) [facility] Start: 1955 Sex Assigned At Male F [facility] End: 05-28-1992 History of tobacco use Current smoker [facility] Work Phone: End: 05-28-1992 History of tobacco use Cigarette Smoker [facility] Work Phone: Start: 03-23-2023 End: 06-30-2023 Alcohol intake Lifetime non-drinker (finding) [facility] Work Phone: Start: 03-23-2023 End: 06-30-2023 Tobacco use panel [facility] Work Phone: Start: 03-13-2023 End: 03-23-2023 Exposure to SARS-CoV-2 (event) Not sure [facility] Start: 03-14-2023 Alcohol Comment caffeine: coff ee 5-6 cups a day [facility] Start: 11-13-2022 Gender identity Identifies as male gender (finding) [facility] Clinical Notes 05-01-2022 to 06-30-2023 Hosea Sifuentes DO - 06/30/2023 10:05 AM Cassandra Castro MD - 03/23/2023 9:40 AM EDTPatient InstructionsCatherine Bender, MD - 11/14/2022 10:00 AM EDTChiram Bender MD - 08/08/2022 3:45 PM EDT Note Date & Type Note Facility 06-30-2023 History of Presen t illness Narrative HPI: Historian of HPI: patient Demarcus Panchal is a 68 y.o. male who presents today to the Urgent Care with the following complaints and denials which have been present for 2 month(s) I do have some chest tightness. I was here the other day and they sent me to the er but they didn't do anything. Its just getting worse. The hospital gave me medicine for the nebulizer but it didn't help. They said that the xray and blood work was fine. C/O Denies Symptom Comments [x] [] Runny Nose clear [] [x] Difficulty Swallowing [] [x] Sore Throat [x] [] Cough Productive, Green [] [x] Ear Pain [] [x] Fever [] [x] Chills [x] [] Nasal Congestion [] [x] Myalgia [] [x] Sinus Pain [] [x] Sinus Pressure Additional Comments: pt has taken dayquil and nightquil OTC medication without relief ROS: A complete system ROS was performed and negative aside from the pertinent positives noted in the HPI and PE. Physical Exam Constitutional: Appearance: Normal appearance. HENT: Head: Normocephalic. Right Ear: Tympanic membrane normal. Left Ear: Tympanic membrane normal. Nose: Nose normal. Mouth/Throat: Mouth: Mucous membranes are moist. Pharynx: Oropharynx is clear. Eyes: Extraocular Movements: Extraocular movements intact. Conjunctiva/sclera: Conjunctivae normal. Pupils: Pupils are equal, round, and reactive to light. Neck: Vascular: No carotid bruit. Cardiovascular: Rate and Rhythm: Normal rate and regular rhythm. Heart sounds: Normal heart sounds. Pulmonary: Effort: Pulmonary effort is normal. Breath sounds: Rhonchi present. No rales. Abdominal: General: Bowel sounds are normal. Palpations: Abdomen is soft. There is no mass. Musculoskeletal: Cervical back: Neck supple. Right lower leg: No edema. Left lower leg: No edema. Lymphadenopathy: Cervical: No cervical adenopathy. Skin: General: Skin is warm and dry. Neurological: General: No focal deficit present. Mental Status: He is alert and oriented to person, place, and time. Psychiatric: Mood and Affect: Mood normal. Behavior: Behavior normal. Diagnoses and all orders for this visit: Acute exacerbation of chronic obstructive pulmonary disease (CMS/HCC) (Primary) - azithromycin (Zithromax) 250 MG tablet; Z-Pack. Take 2 tablets on day 1, and one tablet per day on days 2-5. - predniSONE (Deltasone) 20 MG tablet; 1 po tid with food x 5 days then 1 po bid x 3 days, then 1 po every day x 3 days documented in this encounter [facility] 03-23-2023 History of Presen t illness Narrative Subjective Demarcus Panchal is a 68 y.o. male Chief Complaint Follow-up HPI Is in the office for follow-up for the problems noted below. Since his last visit he had a nuclear stress test which revealed no evidence of myocardial ischemia and echocardiogram revealed ejection fraction 45%. He currently has no symptoms suggestive of angina pectoris cardiac arrhythmias or dyspnea on exertion. He remains obese as noted. Apart from that his physical examination was normal. The findings of the recent noninvasive investigations were shared with the patient today he is very satisfied and presently has no areas that concerns him. ASSESSMENT AND PLAN: 1. Coronary artery disease, stable. Currently on guideline directed medical therapy for chronic ischemic heart disease which has been well-tolerated last nuclear stress test 2022 reveals no ischemia 2. Status post angioplasty with bare-metal stent to the right coronary artery and drug-eluting stent to the anterior descending artery in 2009. 3. Hypertension, under control, no changes are needed 4. Hyperlipidemia, on statin therapy and Zetia, recent lab data from PCP were reviewed with the patient and his lipids are on target. 5. Asymptomatic ischemic cardiomyopathy, stage C functional class II NYHA last ejection fraction from 2022 45% by echo, continue current therapy 6. Class II obesity provided patients with advice on the measures to bring his BMI down with emphasis on low-calorie diet Rene Castro MD, FACC Review of Systems All other systems reviewed and are negative. Visit Vitals BP 128/72 (BP Location: Left arm, Patient Position: Sitting) Pulse 60 Ht 1.727 m (5' 8 ) Wt 105 kg (231 lb) BMI 35.12 kg/m Smoking Status Former BSA 2.24 m Objective Physical Exam Constitutional: Appearance: Normal appearance. He is normal weight. HENT: Nose: Nose normal. Neck: Vascular: No carotid bruit. Cardiovascular: Rate and Rhythm: Normal rate. Pulses: Normal pulses. Heart sounds: Normal heart sounds. Pulmonary: Effort: Pulmonary effort is normal. Abdominal: General: Bowel sounds are normal. Palpations: Abdomen is soft. Genitourinary: Rectum: Normal. Musculoskeletal: General: Normal range of motion. Cervical back: Normal range of motion. Right lower leg: No edema. Left lower leg: No edema. Skin: General: Skin is warm and dry. Neurological: General: No focal deficit present. Mental Status: He is alert. Psychiatric: Mood and Affect: Mood normal. Behavior: Behavior normal. Thought Content: Thought content normal. Judgment: Judgment normal. Current Medications Current Outpatient Medications: aspirin 81 mg EC tablet, Take 1 tablet (81 mg) by mouth once daily., Disp: , Rfl: atorvastatin (Lipitor) 40 mg tablet, Take 1 tablet (40 mg) by mouth once daily., Disp: , Rfl: carvedilol (Coreg) 12.5 mg tablet, Take 0.5 tablets (6.25 mg) by mouth 2 times a day., Disp: , Rfl: cholecalciferol (Vitamin D-3) 50 MCG (2000 UT) tablet, Take 1 tablet (50 mcg) by mouth once daily., Disp: , Rfl: ezetimibe (Zetia) 10 mg tablet, Take 1 tablet (10 mg) by mouth once daily., Disp: , Rfl: hydroCHLOROthiazide (HYDRODiuril) 25 mg tablet, Take 1 tablet (25 mg) by mouth once daily., Disp: , Rfl: losartan (Cozaar) 25 mg tablet, Take 1 tablet (25 mg) by mouth 2 times a day., Disp: , Rfl: magnesium oxide (Mag-Ox) 250 mg magnesium tablet, Take 1 tablet (250 mg) by mouth once daily., Disp: , Rfl: multivitamin (MULTIPLE VITAMINS ORAL), 1 tablet once daily., Disp: , Rfl: omega-3 fatty acids-fish oil (One-Per-Day [place]-3) 684-1,200 mg capsule, Take as directed, Disp: , Rfl: omeprazole (PriLOSEC) [address] capsule, Take 1 capsule (20 mg) by mouth once daily., Disp: , Rfl: tamsulosin (Flomax) 0.4 mg 24 hr capsule, Take 2 capsules (0.8 mg) by mouth once daily., Disp: , Rfl: vitamin E 180 mg (400 unit) capsule, Take 1 capsule (400 Units) by mouth once daily., Disp: , Rfl: zinc gluconate 30 mg tablet, Take 1 tablet (30 mg) by mouth once daily., Disp: , Rfl: Assessment/Plan 1. Coronary artery dise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 Follow Up In Cardiology CBC Lipid Panel Basic Metabolic Panel Aspartate Aminotransferase Alanine Aminotransferase CBC Lipid Panel Basic Metabolic Panel Aspartate Aminotransferase Alanine Aminotransferase 2. Essential hypertension Follow Up In Cardiology CBC Lipid Panel Basic Metabolic Panel Aspartate Aminotransferase Alanine Aminotransferase CBC Lipid Panel Basic Metabolic Panel Aspartate Aminotransferase Alanine Aminotransferase 3. Mixed hyperlipidemia Follow Up In Cardiology CBC Lipid Panel Basic Metabolic Panel Aspartate Aminotransferase Alanine Aminotransferase CBC Lipid Panel Basic Metabolic Panel Aspartate Aminotransferase Alanine Aminotransferase 4. Ischemic cardiomyopathy Follow Up In Cardiology CBC Lipid Panel Basic Metabolic Panel Aspartate Aminotransferase Alanine Aminotransferase CBC Lipid Panel Basic Metabolic Panel Aspartate Aminotransferase Alanine Aminotransferase 5. Status post coronary artery stent placement Follow Up In Cardiology CBC Lipid Panel Basic Metabolic Panel Aspartate Aminotransferase Alanine Aminotransferase CBC Lipid Panel Basic Metabolic Panel Aspartate Aminotransferase Alanine Aminotransferase 6. Class 2 obesity with body mass index (BMI) of 35.0 to 35.9 in adult, unspecified obesity type, unspecified whether serious comorbidity present Follow Up In Cardiology CBC Lipid Panel Basic Metabolic Panel Aspartate Aminotransferase Alanine Aminotransferase CBC Lipid Panel Basic Metabolic Panel Aspartate Aminotransferase Alanine Aminotransferase documented in this encounter [facility] Work Phone: 03-23-2023 Instructions Millie Hoffmann CMA - 03/23/2023 9:40 AM EDT Please bring all medicines, vitamins, and herbal supplements with you when you come to the office. Prescriptions will not be filled unless you are compliant with your follow up appointments or have a follow up appointment scheduled as per instruction of your physician. Refills should be requested at the time of your visit. documented in this encounter [facility] Work Phone: 11-14-2022 Note HNO ID: [id number] Author: Deandra Bender MD Service: ? Author Type: Physician Type: Progress Notes Filed: 11/14/2022 10:03 AM Note Text: Here for botox Right eye just started twitching Tears as needed. -rofPatient still having twitching right eye and occasionally the left. Refresh tears four times a day. -rof A/P: Right hemifacial spasm x 2 years Patient doesn't remember h/o bells or facial palsy H/o Botox injections in [place]-->didn't help No h/o trauma H/o sinus surgery in past MRI Brain W/WO IVCON 06/30/22 (report only) Impression: Mild periventricular hyperintensity. Incidental empty sella syndrome. Unremarkable MRI of the brain stem and orbital areas. No acute intracranial pathology Exam: Right hemifacial spasm 1+ Some weakness of right forehead (3/4) , orbicularis (3/4) , mouth 4/4 (symmetric smile) No palpable parotid tumor or other lesion on face Right intrabrow central verrucous lesion 0.4 cm , no hair loss Last Botox worked well for right hemifacial spasm Botulinum toxin takes 1 week to set in lasts 3-4 mo Discussed risk of bruising, spread to cause droopy eyelid,double vision, rare allergic reaction, rare generalized weakness with neurological disorders eg. Eaton Lambert syndrome Risks, benefits, alternatives discussed and patient wishes to proceed. Consent on file Patient reports last doctor did not use alcohol to clean his face and would like that 43 units today repeat Additional site verification of Botulinum toxin injection completed verbally with patient just prior to injection. Could try to get adis tinted glasses if patient desires Where can I get the FL-41 filter? Any [facility] location, (with an optical shop), throughout [place], Email: [email or web address] in [place], [place], [facility] in [place], [place], [facility] in [place], [place], [facility] in [place], [place], [email or web address] F/u Botulinum toxin 3 months, Botulinum toxin is being used for medical indication and treatment of hemifacial spasm , up to 100 units 2. Right central intrabrow lesion Patient states he has been using wart medicine on it No h/o skin cancer Discussed could biopsy today if patient would like; patient doesn't want biopsy Discussed if growing or irritating can biopsy Will monitor for now Photodocumentation Recheck next visit -->patient defers biopsy 3. General eye care Dr. Randle The documentation for this note was completed by Evelia Huffman APRN, CNP acting as a scribe for Deandra Bender MD. 11/14/2022 10:00 AM. I have confirmed and edited as necessary the relevant ophthalmic history, ROS, and the neuro exam findings as obtained by others. I have seen and examined Demarcus Panchal. I have discussed the case and the management of this patient's care with the Resident/Fellow, if applicable. I also have reviewed and agree with the assessment and plan as stated above and agree with all of its relevant components. I, Deandra Bender MD, personally performed the services described in this documentation. All medical record entries made by the scribe were at my direction and in my presence. I have reviewed the chart and discharge instructions (if applicable) and agree that the record reflects my personal performance and is accurate and complete. Electronically Signed: Deandra Bender MD, November 14, 2022 10:00 AM. [facility] 11-14-2022 History of Presen t illness Narrative Here for botox Right eye just started twitching Tears as needed. -rofPatient still having twitching right eye and occasionally the left. Refresh tears four times a day. -rof A/P: Right hemifacial spasm x 2 years Patient doesn't remember h/o bells or facial palsy H/o Botox injections in [place]-->didn't help No h/o trauma H/o sinus surgery in past MRI Brain W/WO IVCON 06/30/22 (report only) Impression: Mild periventricular hyperintensity. Incidental empty sella syndrome. Unremarkable MRI of the brain stem and orbital areas. No acute intracranial pathology Exam: Right hemifacial spasm 1+ Some weakness of right forehead (3/4) , orbicularis (3/4) , mouth 4/4 (symmetric smile) No palpable parotid tumor or other lesion on face Right intrabrow central verrucous lesion 0.4 cm , no hair loss Last Botox worked well for right hemifacial spasm Botulinum toxin takes 1 week to set in lasts 3-4 mo Discussed risk of bruising, spread to cause droopy eyelid,double vision, rare allergic reaction, rare generalized weakness with neurological disorders eg. Eaton Lambert syndrome Risks, benefits, alternatives discussed and patient wishes to proceed. Consent on file Patient reports last doctor did not use alcohol to clean his face and would like that 43 units today repeat Additional site verification of Botulinum toxin injection completed verbally with patient just prior to injection. Could try to get adis tinted glasses if patient desires Where can I get the FL-41 filter? Any [facility] location, (with an optical shop), throughout [place], Email: [email or web address] in [place], [place], [facility] in [place], [place], [facility] in [place], [place], [employer] in [place], [place], [email or web address] F/u Botulinum toxin 3 months, Botulinum toxin is being used for medical indication and treatment of hemifacial spasm , up to 100 units 2. Right central intrabrow lesion Patient states he has been using wart medicine on it No h/o skin cancer Discussed could biopsy today if patient would like; patient doesn't want biopsy Discussed if growing or irritating can biopsy Will monitor for now Photodocumentation Recheck next visit -->patient defers biopsy 3. General eye care Dr. Randle The documentation for this note was completed by Evelia Huffman APRN, CNP acting as a scribe for Deandra Bender MD. 11/14/2022 10:00 AM. I have confirmed and edited as necessary the relevant ophthalmic history, ROS, and the neuro exam findings as obtained by others. I have seen and examined Demarcus Panchal. I have discussed the case and the management of this patient's care with the Resident/Fellow, if applicable. I also have reviewed and agree with the assessment and plan as stated above and agree with all of its relevant components. I, Deandra Bender MD, personally performed the services described in this documentation. All medical record entries made by the scribe were at my direction and in my presence. I have reviewed the chart and discharge instructions (if applicable) and agree that the record reflects my personal performance and is accurate and complete. Electronically Signed: Deandra Bender MD, November 14, 2022 10:00 AM. documented in this encounter [facility] 08-08-2022 Note HNO ID: [id number] Author: Deandra Bender MD Service: ? Author Type: Physician Type: Progress Notes Filed: 08/08/2022 3:09 PM Note Text: Patient still having twitching right eye and occasionally the left. Refresh tears four times a day. -rof A/P: Right hemifacial spasm x 2 years Patient doesn't remember h/o bells or facial palsy H/o Botox injections in [place]-->didn't help No h/o trauma H/o sinus surgery in past MRI Brain W/WO IVCON 06/30/22 (report only) Impression: Mild periventricular hyperintensity. Incidental empty sella syndrome. Unremarkable MRI of the brain stem and orbital areas. No acute intracranial pathology Exam: Right hemifacial spasm 1+ Some weakness of right forehead (3/4) , orbicularis (3/4) , mouth 4/4 (symmetric smile) No palpable parotid tumor or other lesion on face Right intrabrow central verrucous lesion 0.4 cm , no hair loss Discussed with patient he has right hemifacial spasm Patient c/o spasms cause him difficulty reading Discussed could try botulinum toxin again Patient would like to try today Botulinum toxin takes 1 week to set in lasts 3-4 mo Discussed risk of bruising, spread to cause droopy eyelid,double vision, rare allergic reaction, rare generalized weakness with neurological disorders eg. Eaton Lambert syndrome Risks, benefits, alternatives discussed and patient wishes to proceed. Consent obtained Patient reports last doctor did not use alcohol to clean his face and would like that 43 units today Additional site verification of Botulinum toxin injection completed verbally with patient just prior to injection. F/u Botulinum toxin 3 months, Botulinum toxin is being used for medical indication and treatment of hemifacial spasm , up to 100 units 2. Right central intrabrow lesion Patient states he has been using wart medicine on it No h/o skin cancer Discussed could biopsy today if patient would like; patient doesn't want biopsy Discussed if growing or irritating can biopsy Will monitor for now Photodocumentation Recheck next visit The documentation for this note was completed by Evelia Huffman APRN, CNP acting as a scribe for Deandra Bender MD. 08/08/2022 3:05 PM. I have confirmed and edited as necessary the relevant ophthalmic history, ROS, and the neuro exam findings as obtained by others. I have seen and examined Demarcus Panchal. I have discussed the case and the management of this patient's care with the Resident/Fellow, if applicable. I also have reviewed and agree with the assessment and plan as stated above and agree with all of its relevant components. I, Deandra Bender MD, personally performed the services described in this documentation. All medical record entries made by the scribe were at my direction and in my presence. I have reviewed the chart and discharge instructions (if applicable) and agree that the record reflects my personal performance and is accurate and complete. Electronically Signed: Deandra Bender MD, August 08, 2022 3:05 PM. [facility] 08-08-2022 History of Presen t illness Narrative Patient still having twitching right eye and occasionally the left. Refresh tears four times a day. -rof A/P: Right hemifacial spasm x 2 years Patient doesn't remember h/o bells or facial palsy H/o Botox injections in [place]-->didn't help No h/o trauma H/o sinus surgery in past MRI Brain W/WO IVCON 06/30/22 (report only) Impression: Mild periventricular hyperintensity. Incidental empty sella syndrome. Unremarkable MRI of the brain stem and orbital areas. No acute intracranial pathology Exam: Right hemifacial spasm 1+ Some weakness of right forehead (3/4) , orbicularis (3/4) , mouth 4/4 (symmetric smile) No palpable parotid tumor or other lesion on face Right intrabrow central verrucous lesion 0.4 cm , no hair loss Discussed with patient he has right hemifacial spasm Patient c/o spasms cause him difficulty reading Discussed could try botulinum toxin again Patient would like to try today Botulinum toxin takes 1 week to set in lasts 3-4 mo Discussed risk of bruising, spread to cause droopy eyelid,double vision, rare allergic reaction, rare generalized weakness with neurological disorders eg. Eaton Lambert syndrome Risks, benefits, alternatives discussed and patient wishes to proceed. Consent obtained Patient reports last doctor did not use alcohol to clean his face and would like that 43 units today Additional site verification of Botulinum toxin injection completed verbally with patient just prior to injection. F/u Botulinum toxin 3 months, Botulinum toxin is being used for medical indication and treatment of hemifacial spasm , up to 100 units 2. Right central intrabrow lesion Patient states he has been using wart medicine on it No h/o skin cancer Discussed could biopsy today if patient would like; patient doesn't want biopsy Discussed if growing or irritating can biopsy Will monitor for now Photodocumentation Recheck next visit The documentation for this note was completed by Evelia Huffman APRN, CNP acting as a scribe for Deandra Bender MD. 08/08/2022 3:05 PM. I have confirmed and edited as necessary the relevant ophthalmic history, ROS, and the neuro exam findings as obtained by others. I have seen and examined Demarcus Panchal. I have discussed the case and the management of this patient's care with the Resident/Fellow, if applicable. I also have reviewed and agree with the assessment and plan as stated above and agree with all of its relevant components. I, Deandra Bender MD, personally performed the services described in this documentation. All medical record entries made by the scribe were at my direction and in my presence. I have reviewed the chart and discharge instructions (if applicable) and agree that the record reflects my personal performance and is accurate and complete. Electronically Signed: Deandra Bender MD, August 08, 2022 3:05 PM. documented in this encounter [facility] 08-08-2022 Instructions Deandra Bender MD - 08/08/2022 3:09 PM EDT Discussed with patient he has right hemifacial spasm Patient c/o spasms cause him difficulty reading Discussed could try botulinum toxin again Patient would like to try today Botulinum toxin takes 1 week to set in lasts 3-4 mo Discussed risk of bruising, spread to cause droopy eyelid,double vision, rare allergic reaction, rare generalized weakness with neurological disorders eg. Eaton Lambert syndrome Risks, benefits, alternatives discussed and patient wishes to proceed. Consent obtained Patient reports last doctor did not use alcohol to clean his face and would like that 43 units today Additional site verification of Botulinum toxin injection completed verbally with patient just prior to injection. F/u Botulinum toxin 3 months, Botulinum toxin is being used for medical indication and treatment of hemifacial spasm , up to 100 units 2. Right central intrabrow lesion Patient states he has been using wart medicine on it No h/o skin cancer Discussed could biopsy today if patient would like; patient doesn't want biopsy Discussed if growing or irritating can biopsy Will monitor for now Photodocumentation Recheck next visit documented in this encounter [facility] 06-21-2022 Miscellaneous Notes Notes and MRI orders faxed to [facility]. [facility] called today. : 1955 Allergies: Codeine, Codeine-Guaifenesin, and Guaifenesin (home) [phone] (cell) Reason for call: Sasha F:[phone] Asking for the MRI orders and office notes to be faxed over to [facility]. Patient will be having them done there. Patient last appointment: Visit date not found The patients preferred pharmacy has been captured for this encounter? not asked Delores Veda documented in this encounter [facility] 06-21-2022 Note HNO ID: [id number] Author: Deandra Bender MD Service: ? Author Type: Physician Type: Progress Notes Filed: 06/21/2022 9:08 AM Note Text: Twitching right eye x two years. Both upper and lower lid. Trouble reading because of it. +tearing and burning. Refresh four times a day. -rof A/P: Right hemifacial spasm x 2 years Patient doesn't remember h/o bells or facial palsy H/o Botox injections in [place]-->didn't help No h/o trauma H/o sinus surgery in past Exam: Right hemifacial spasm 1+ Some weakness of right forehead (3/4) , orbicularis (3/4) , mouth 4/4 (symmetric smile) No palpable parotid tumor or other lesion on face Discussed with patient he has right hemifacial spasm Would recc MRI brain and neck to r/o other pathology causing (possible vascular loop) (patient doesn't remember facial nerve palsy in past) ; some weakness on exam Patient c/o spasms cause him difficulty reading Discussed could try botulinum toxin again Discussed will need to submit for insurance approval and return once approved, usually takes ~1month Botulinum toxin is being used for medical indication and treatment of right hemifacial spasm, up to 100 units ; may need to adjust dose Patient reports last doctor did not use alcohol to clean his face and would like that Return 1 month for Botulinum toxin and get MRI The documentation for this note was completed by Evelia Huffman APRN, CNP acting as a scribe for Deandra Bender MD. 06/21/2022 9:05 AM. I have confirmed and edited as necessary the relevant ophthalmic history, ROS, and the neuro exam findings as obtained by others. I have seen and examined Demarcus Panchal. I have discussed the case and the management of this patient's care with the Resident/Fellow, if applicable. I also have reviewed and agree with the assessment and plan as stated above and agree with all of its relevant components. I, Deandra Bender MD, personally performed the services described in this documentation. All medical record entries made by the scribe were at my direction and in my presence. I have reviewed the chart and discharge instructions (if applicable) and agree that the record reflects my personal performance and is accurate and complete. Electronically Signed: Deandra Bender MD, June 21, 2022 9:05 AM. [facility] 06-21-2022 Instructions Deandra Bender MD - 06/21/2022 9:05 AM EST Discussed with patient he has right hemifacial spasm Would recc MRI brain and neck to r/o other pathology causing (possible vascular loop) (patient doesn't remember facial nerve palsy in past) ; some weakness on exam Patient c/o spasms cause him difficulty reading Discussed could try botulinum toxin again Discussed will need to submit for insurance approval and return once approved, usually takes ~1month Botulinum toxin is being used for medical indication and treatment of right hemifacial spasm, up to 100 units ; may need to adjust dose Patient reports last doctor did not use alcohol to clean his face and would like that Return 1 month for Botulinum toxin and get MRI documented in this encounter [facility] 06-21-2022 History of Presen t illness Narrative Twitching right eye x two years. Both upper and lower lid. Trouble reading because of it. +tearing and burning. Refresh four times a day. -rof A/P: Right hemifacial spasm x 2 years Patient doesn't remember h/o bells or facial palsy H/o Botox injections in [place]-->didn't help No h/o trauma H/o sinus surgery in past Exam: Right hemifacial spasm 1+ Some weakness of right forehead (3/4) , orbicularis (3/4) , mouth 4/4 (symmetric smile) No palpable parotid tumor or other lesion on face Discussed with patient he has right hemifacial spasm Would recc MRI brain and neck to r/o other pathology causing (possible vascular loop) (patient doesn't remember facial nerve palsy in past) ; some weakness on exam Patient c/o spasms cause him difficulty reading Discussed could try botulinum toxin again Discussed will need to submit for insurance approval and return once approved, usually takes ~1month Botulinum toxin is being used for medical indication and treatment of right hemifacial spasm, up to 100 units ; may need to adjust dose Patient reports last doctor did not use alcohol to clean his face and would like that Return 1 month for Botulinum toxin and get MRI The documentation for this note was completed by Evelia Huffman APRN, CNP acting as a scribe for Deandra Bender MD. 06/21/2022 9:05 AM. I have confirmed and edited as necessary the relevant ophthalmic history, ROS, and the neuro exam findings as obtained by others. I have seen and examined Demarcus Panchal. I have discussed the case and the management of this patient's care with the Resident/Fellow, if applicable. I also have reviewed and agree with the assessment and plan as stated above and agree with all of its relevant components. I, Deandra Bender MD, personally performed the services described in this documentation. All medical record entries made by the scribe were at my direction and in my presence. I have reviewed the chart and discharge instructions (if applicable) and agree that the record reflects my personal performance and is accurate and complete. Electronically Signed: Deandra Bender MD, June 21, 2022 9:05 AM. documented in this encounter [facility] 05-01-2022 Note HNO ID: [id number] Author: Mau Randle OD Service: ? Author Type: CLAMSHELL ENGINEER Type: Progress Notes Filed: 05/01/2022 9:22 AM Note Text: A 67 year old White male presents to clinic for eye exam; when patient is reading or looking at screen, eye twitches and gets watery and can't read; using eyedrops-unsure of the name-uses once or twice per day; has had botox injections in past for twitching-states that it did not work; not interested in new glasses today-just wants to know why eye goes crazy No results found for: HBA1C Family Ocular History: None Assessment/Plan: 1. Eyelid myokymia - Previously tried Botox injection one time and did not help per patient - Poor historian - Appears constant, though patient reports a worsening while reading or doing anything up close - N/a w/ Rosio Bender 2. Dry eye syndrome of both eyes - Educated patient on condition - Recommend artificial tears three-four times a day both eyes - Monitor 3. Hyperopia of both eyes with astigmatism and presbyopia - Patient declined refraction today - Monitor I have confirmed and edited as necessary the relevant ophthalmic history, ROS, and the neuro exam findings as obtained by others. I have seen and examined Demarcus Panchal. I have discussed the case and the management of this patient's care with the Resident/Fellow, if applicable. I also have reviewed and agree with the assessment and plan as stated above and agree with all of its relevant components. Mau Randle, LATASHA [facility] 05-01-2022 History of Presen t illness Narrative A 67 year old White male presents to clinic for eye exam; when patient is reading or looking at screen, eye twitches and gets watery and can't read; using eyedrops-unsure of the name-uses once or twice per day; has had botox injections in past for twitching-states that it did not work; not interested in new glasses today-just wants to know why eye goes crazy No results found for: HBA1C Family Ocular History: None Assessment/Plan: 1. Eyelid myokymia - Previously tried Botox injection one time and did not help per patient - Poor historian - Appears constant, though patient reports a worsening while reading or doing anything up close - N/a w/ / [place] 2. Dry eye syndrome of both eyes - Educated patient on condition - Recommend artificial tears three-four times a day both eyes - Monitor 3. Hyperopia of both eyes with astigmatism and presbyopia - Patient declined refraction today - Monitor I have confirmed and edited as necessary the relevant ophthalmic history, ROS, and the neuro exam findings as obtained by others. I have seen and examined Demarcus Panchal. I have discussed the case and the management of this patient's care with the Resident/Fellow, if applicable. I also have reviewed and agree with the assessment and plan as stated above and agree with all of its relevant components. 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 documented in this encounter [facility] note* Diagnosis Clonic hemifacial spasm, right- Primary [facility] Diagnosis Clonic hemifacial spasm, right- Primary documented in this encounter [facility] noteNo assessment information [facility] Work Phone: Evaluation note* Diagnosis Coronary artery dise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 Essential hypertension Unspecified essential hypertension Mixed hyperlipidemia Ischemic cardiomyopathy Other specified forms of chronic ischemic heart disease Status post coronary artery stent placement Postsurgical percutaneous transluminal coronary angioplasty status Class 2 obesity with body mass index (BMI) of 35.0 to 35.9 in adult, unspecified obesity type, unspecified whether serious comorbidity present documented in this encounter [facility] Work Phone: Evaluation note* Diagnosis Acute exacerbation of chronic obstructive pulmonary disease (CMS/HCC)- Primary Obstructive chronic bronchitis with exacerbation [facility] Additional Instructions If your symptoms return/worsen or you develop any further concerns or symptoms please see your doctor or return to the emergency department immediately.[facility] Work Phone: Reason for referral (narrative)* Consultation (Routine) - Authorized Specialty Diagnoses / Procedures Referred By Contdanae t Referred To Contact Cardiology Diagnoses Coronary artery dise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 Essential hypertension Mixed hyperlipidemia Ischemic cardiomyopathy Status post coronary artery stent placement Class 2 obesity with body mass index (BMI) of 35.0 to 35.9 in adult, unspecified obesity type, unspecified whether serious comorbidity present Procedures Follow Up In Cardiology Rene Castro MD [address] [facility], [address] [address] Rene Castro MD [address], [address] [address] Referral ID Status Reason Start Date Expiration Date V isits Requested Visits Authorized [id number] Authorized 03/23/2023 03/22/2024 1 1 [facility] Work Phone: Chief Complaint * DEMARCUS PANCHAL is being seen for an annual follow-up of. * Patient is in the office for annual follow-up for coronary artery disease. He has had no events since his last seen in the office last year. Back in January 2021 he underwent Lexiscan perfusion study which revealed inferolateral and anterior myocardial infarction with no ischemia. EF in the [id number]. He remains compensated as for ischemic cardiomyopathy. He had blood work done through his PCP couple months ago which I requested. He denies any angina orthopnea PND lower extremity edema. He remains significantly obese which was brought his attention and educated on the need to bring his weight under control. * ASSESSMENT AND PLAN: * 1. Coronary artery disease, stable. Currently on guideline directed medical therapy for chronic ischemic heart disease which has been well-tolerated * 2. Status post angioplasty with bare-metal stent to the right coronary artery * and drug-eluting stent to the anterior descending artery in 2009. Nuclear stress test 2020 in January revealed no ischemia but areas of infarction and reduced ejection fraction at 38%. * 3. Hypertension, under control on present medical therapy. * 4. Hyperlipidemia, on statin therapy. And Zetia, recent lab data from PCP were requested * 5. Asymptomatic ischemic cardiomyopathy last ejection fraction from January 2021 was 38%, continue beta-blockers and increase losartan up to 25 mg twice daily. * 6. Obesity with a BMI 36 kg/m , provided patients with advice on the measures to bring his BMI downwith emphasis on low-calorie diet * Rene Castro MD, FACC * DEMARCUS PANCHAL is being seen for an annual follow-up of. * Patient is in the office for follow-up for ischemic heart disease and has had no events since he was last seen in the office several months ago. He remains significantly obese which sometimes causes his dyspnea. He does have LV systolic dysfunction ejection fraction 38% and he remains in compensated state. His blood pressure is under control medical therapy. His lipids have been under control on statin therapy as well. He does not smoke and does not seem to have problem with diabetes. His review of system essentially normal except for occasional dyspnea on exertion he has no indication of sleep apnea. Recent lab data were forwarded to me for review and discussed with the patient. * ASSESSMENT AND PLAN: * 1. Coronary artery disease, stable. Currently on guideline directed medical therapy for chronic ischemic heart disease which has been well-tolerated * 2. Status post angioplasty with bare-metal stent to the right coronary artery * and drug-eluting stent to the anterior descending artery in 2009. Nuclear stress test 2020 in January revealed no ischemia but areas of infarction and reduced ejection fraction at 38%. * 3. Hypertension, under control, the patient was advised to discontinue hydrochlorothiazide and increase losartan since it would be better medicine for his LV systolic dysfunction. * 4. Hyperlipidemia, on statin therapy. And Zetia, recent lab data from PCP were reviewed with the patient and his lipids are on target. * 5. Asymptomatic ischemic cardiomyopathy, stage C functional class II NYHA last ejection fraction from January 2021 was 38%, continue beta-blockers and increase losartan up to 50 mg daily. * 6. Obesity provided patients with advice on the measures to bring his BMI down with emphasis on low-calorie diet * Rene Castro MD, [facility] Family History No Family History Records FoundUnknown Family Member Name Dates Details Family history of abdominal aortic aneurysm (AAA): Father(V17.49, Z82.49) Status:Active Family history of arterioscl erotic cardiovascular disease: Father(V17.49, Z82.49) Status:Active Unknown Family Member Name Dates Details Family history of abdominal aortic aneurysm (AAA): Father(V17.49, Z82.49) Status:Active Family history of arterioscl erotic cardiovascular disease: Father(V17.49, Z82.49) Status:Active Unknown Family Member Name Dates Details Family history of abdominal aortic aneurysm (AAA): Father(V17.49, Z82.49) Status:Active Family history of arterioscl erotic cardiovascular disease: Father(V17.49, Z82.49) Status:Active Unknown Family Member Name Dates Details Family history of abdominal aortic aneurysm (AAA): Father(V17.49, Z82.49) Status:Active Family history of arterioscl erotic cardiovascular disease: Father(V17.49, Z82.49) Status:Active Unknown Family Member Name Dates Details Family history of abdominal aortic aneurysm (AAA): Father(V17.49, Z82.49) Status:Active Family history of arterioscl erotic cardiovascular disease: Father(V17.49, Z82.49) Status:Active Relationship Condition Age at Onset Recorded Date/T lemuel Not Specified Alzheimer's disease Unknown father Abdominal aortic aneurysm (AAA) Unknown natural son Heart disease Unknown brother Kidney disorder Unknown Unknown Family Member Name Dates Details Family history of abdominal aortic aneurysm (AAA): Father(V17.49, Z82.49) Status:Active Family history of arterioscl erotic cardiovascular disease: Father(V17.49, Z82.49) Status:Active Reason for Referral Specialty Diagnoses / Procedures Referred By Bryon hernandez Referred To Contact MR IMAGING Diagnoses Jada's syndrome Procedures MRI SOFT TISSUE NECK WO/W IVCON MRI ORBIT FACE & NECK W/O & W/CONTRAST MATRL Deandra Bender MD [address] [place] [address] Mr Imaging Referral ID Status Reason Start Date Expiration Date Visits Requested Visits Authorized [id number] Pending Review Auto-Generat ed Referral 06/21/2022 07/21/2023 1 1 Specialty Diagnoses / Procedures Referred By Bryon hernandez Referred To Contact MR IMAGING Diagnoses Paralytic strabismus Procedures MRI BRAIN WO/W IVCON MRI BRAIN BRAIN STEM W/O W/CONTRAST MATERIAL Deandra Bender MD [address] [facility] [place] [address] Mr Imaging Referral ID Status Reason Start Date Expiration Date Visits Requested Visits Authorized [id number] Pending Review Auto-Generat ed Referral 06/21/2022 07/21/2023 1 1 Summary Purpose Advance Directives No Advanced Directives Records Found Advance Directive Response Recorded Date/ Time Advance Directives No September 19 2:33pm Advance Directive Response Recorded Date/ Time Advance Directives No September 19 1:33pm Chief Complaint and Reason for Visit Chief Complaint I10 I25.5 Chief Complaint cough sent by Additional Source Comments Source Comments (unrecognize d section and content) In the event this informatio n is protected by the Federal Confidentiality of Alcohol and Drug Abuse Patient Records regulations: The Federal rules restrict any use of the information to criminally investigate or prosecute any alcohol or drug abuse patient.[facility] the event this information is protected by the Federal Confidentiality of Alcohol and Drug Abuse Patient Records regulations: The Federal rules restrict any use of the information to criminally investigate or prosecute any alcohol or drug abuse patient.[facility] the event this information is protected by the Federal Confidentiality of Alcohol and Drug Abuse Patient Records regulations: The Federal rules restrict any use of the information to criminally investigate or prosecute any alcohol or drug abuse patient.[facility] the event this information is protected by the Federal Confidentiality of Alcohol and Drug Abuse Patient Records regulations: The Federal rules restrict any use of the information to criminally investigate or prosecute any alcohol or drug abuse patient.[facility] the event this information is protected by the Federal Confidentiality of Alcohol and Drug Abuse Patient Records regulations: The Federal rules restrict any use of the information to criminally investigate or prosecute any alcohol or drug abuse patient.[facility] Reason for Visit (unrecogniz ed section and content) Reason Comments Watery Eyes Right Eye Blurred Vision Right Eye Right eye blurr y when reading or computer Reason Comments Hemifacial spasm/Myokymia Reason Comments Orders Reason Comments Hemifacial spasm/Myokymia Specialty Diagnoses / Procedures Referred By Contact Referred To Contact Ophthalmology / OPHTHALMOLOGY Diagnoses Hemifacial spasm F/u Botulinum toxin 3 months, Botulinum toxin is being used for medical indication and treatment of hemifacial spasm , up to 100 units Procedures BOTOX [id number] [place] [address] [place] [address] Deandra Bender MD [address] [place] [address] Referral ID Status Reason Start Date Expiration Date V isits Requested Visits Authorized [id number] Authorized 11/14/2022 05/27/2023 99 99 Reason Comments Follow-up 6 months (unrecognized sect ion and content) No Status Records FoundNo Status Records FoundNo Status Records FoundNo Status Records FoundNo Status Records FoundNo Status Records FoundNo Status Records FoundNo Status Records Found INFORMATION SOURCE (unrecogn ized section and content) DATE CREATED AUTHOR 07/16/2022 [facility] DATE CREATED AUTHOR AUTHOR'S ORGANIZ ATION 09/09/2022 [facility] DATE CREATED AUTHOR AUTHOR'S ORGANIZ ATION 11/14/2022 [facility] DATE CREATED AUTHOR AUTHOR'S ORGANIZ ATION 02/12/2023 [facility] DATE CREATED AUTHOR AUTHOR'S ORGANIZ ATION 02/28/2023 [facility] DATE CREATED AUTHOR AUTHOR'S ORGANIZ ATION 03/26/2023 [facility] DATE CREATED AUTHOR AUTHOR'S ORGANIZ ATION 06/25/2023 [facility] DATE CREATED AUTHOR AUTHOR'S ORGANIZ ATION 07/31/2023 [facility] EPIC Care Teams (unrecognized sec tion and content) Team Status: Active Member Role Status Dates Sera Flower MD Primary Care Provider Active Team Status: Inactive Member Role Status Dates Sera Flower MD Primary Care Provider, Other Provider Active Rene Castro MD Attending Provider Active Drugless Doctor Relationship Specialty Start Date End Date Sera Flower MD [address] [place] [address] PCP - General 02/16/21 Team Status: Inactive Member Role Status Dates Sera Flower MD Primary Care Provider Active St art: June 14, 2023 End: June 14, 2023 Jasper Martinez DO Emergency Provider Active Start: June 14, 2023 End: June 14, 2023 Drugless Doctor Relationship Specialty Start Date End Date Sera Flower MD [address] [place] [address] PCP - [employer] 05/28/22 Sera Flower MD [address] [place] [address] PCP - General Internal Medicine 10/03/22 Goals (unrecognized section and content) Goals may be documented in a n alternate sectionGoals may be documented in an alternate section FOR RECORDS PERTAINING TO PATIENTS WHO ARE OR HAVE BEEN ENROLLED IN A CHEMICAL DEPENDENCY/SUBSTANCEABUSE PROGRAM, SOME INFORMATION MAY BE OMITTED. This clinical summary was aggregated from multiple sources. Caution should be exercised in using it in the provision of clinical care. This summary normalizes information from multiple sources, and as a consequence, information in this document may materially change the coding, format and clinical context of patient data. In addition, data may be omitted in some cases. CLINICAL DECISIONS SHOULD BE BASED ON THE PRIMARY CLINICAL RECORDS. [facility] [employer] [facility]. provides no warranty or guarantee of the accuracy or completeness of information in this document.
[2023-08-22 08:57] LABS: Basophils Absolute Auto 0.1 10^3/uL (0.0-0.1); Basophils Percent Auto 0.9 % (0.2-2.0); Eosinophils Absolute Auto 0.6 10^3/uL (0.0-0.7); Eosinophils Percent Auto 9.6 % (0.9-7.0); Hematocrit 41.3 % (42.0-54.0); Hemoglobin 14.1 g/dL (14.0-18.0); Immature Granulocytes Abs Auto 0.01 10^3/uL (0.00-0.03); Immature Granulocytes Pct Auto 0.2 % (0.0-0.5); Lymphocytes Absolute Auto 1.3 10^3/uL (1.2-3.8); Lymphocytes Percent Auto 19.6 % (20.5-60.0); Mean Corpuscular HGB Conc 34.1 g/dL (29.9-35.2); Mean Corpuscular Hemoglobin 29.7 pg (25.9-34.0); Mean Corpuscular Volume 87.1 fL (80.0-94.0); Mean Platelet Volume 9.8 fL (9.5-13.5); Monocytes Absolute Auto 0.8 10^3/uL (0.3-0.8); Monocytes Percent Auto 12.6 % (1.7-12.0); Neutrophils Absolute Auto 3.8 10^3/uL (1.4-6.5); Neutrophils Percent Auto 57.1 % (43.0-75.0); Platelet Count 223 10^3/uL (150-450); Red Blood Count 4.74 10^6/uL (4.70-6.10); Red Cell Distribution Width 13.5 % (11.0-15.0); White Blood Count 6.6 10^3/uL (4.0-11.0)
[2023-08-22 09:03] LABS: Erythrocyte Sedimentation Rate 20 mm/hr (<=20)
[2023-08-22 10:07] LABS: C Reactive Protein <0.50 mg/dL (<=0.50)
[2023-08-23 06:09] LABS: Rheumatoid Factor (RF) <10.0 IU/mL (<14.0)
[2023-08-23 13:09] LABS: Angiotensin-Converting Enzyme 109 U/L (14-82)
[2023-08-23 14:10] LABS: ANA Direct Negative (Negative); Antiscleroderma-70 Antibodies <0.2 AI (0.0-0.9)
[2023-08-23 17:09] LABS: Anti-CCP Ab, IgG/IgA 1 units (0-19)
[2023-08-23 22:07] LABS: Anti-MPO Antibodies <0.2 units (0.0-0.9); Anti-PR3 Antibodies <0.2 units (0.0-0.9); Cytoplasmic (C-ANCA) <1:20 titer (Neg:<1:20); Perinuclear (P-ANCA) <1:20 titer (Neg:<1:20)
[2023-08-28 02:07] LABS: Immunoglobulin E, Total 34 IU/mL (6-495)
== END 2023-08-22 08:32 | disposition home or self-care (01) ==
LOC: LAB 08:32
PROVIDERS: PCP Internal Medicine; Visit Provider Internal Medicine
DX: J84.10 Pulmonary fibrosis, unspecified (principal); D72.19 Other eosinophilia
CPT/HCPCS: 36415; 82164; 82785; 83516; 85025; 85652; 86037; 86038; 86140; 86200; 86235; 86431

== ENCOUNTER 2023-12-24 04:44 | Observation (INO) | payer MEDICARE, OTHER, SELFPAY ==
[2023-12-24] VITALS (22 sets, daily range): BP systolic 114–173; BP diastolic 60–100; PULSE 63–97; TEMP 36.3–36.4; O2SAT 91–98; BMI 36.8; BMI 36.6
--- OUTSIDE RECORDS SUMMARY | 2023-12-24 05:08 | XMS_ITS | CCD ---
Author Organization [facility] Care Team Providers Care Radio Commentator Name Role Phone Sera Flower Unavailable Unavailable Unavailable Unavailable Primary Care Provider Unavailabl e Unavailable Unavailable DEANDRA BENDER Attending Unavailable DEANDRA BENDER Referring Unavailable MAU RANDLE Attending Unavailable DEANDRA BENDER Attending Unavailable DEANDRA BENDER Attending Unavailable DEANDRA BENDER Referring Unavailable MD Sera Flower Primary Care Provider [phone] MD Sera Flowre Other Provider MD Rene Castro Attending Provider [phone] Dr. Srea Flower Primary Care Unavailab Rene Nobles Referring Unavailable Anjel, Dr. Sera Frost Primary Care Unavailab Rene Nobles Attending Unavailable Anjel, Dr. Sera Frost Primary Care Unavailab Rene Nobles Attending Unavailable Anjel, Dr. Sera Frost Primary Care Unavailab Rene Nobles Attending Unavailable Sera Flower MD Primary Care Provider [phone] MD Sera Flower Primary Care Provider DO Jasper Martinez Emergency Provider [phone] Jasper Martinez Admitting Unavailable Jasper Martinez Attending Unavailable Sera Flower Primary Care Unavailable Rene Castro Attending Unavailable Sera Flower Primary Care Unavailable Sera Flower Consulting Rene Sauer Admitting Unavailable Sera Flower MD Unavailable Sera Flower MD Primary Care Provider RENZO WEAVER Attending Unavailable SERA FLOWER Referring Unavailable DEBBI BA Attending Unavailable BRITTANY FIGUEROA Attending Unavailable HOSEA SIFUENTES Attending Unavailable SERA FLOWER Attending Unavailable SERA FLOWER Referring Unavailable SERA FLOWER Attending Unavailable RENE CASTRO Attending Unavailable SERA FLOWER Primary Care Unavailable RENE CASTRO Attending Unavailable RENE CATSRO Referring Unavailable SERA FLOWER Primary Care Unavailable Allergies Allergy Classification Reported Allergen(s) Allergy Type Date of Onset Reaction(s) Facility (18 sources) Codeine; Translations: [codeine] Drug Allergy 6 Vomiting, Unknown, Nausea And Vomiting, Other [facility] (6 sources) Codeine / guaiFENesin; Translations: [CODEINE-GUAIFEN ESIN] Drug Allergy 1 Other: See Comments [facility] (6 sources) guaiFENesin; Translations: [GUAIFENESIN] Drug Allergy 3 Other: See Comments [facility] (1 source) Codeine Drug Allergy 4 [facility] (2 sources) guaiFENesin Drug Allergy 3 Other [facility] Medications Current Medications Medication Drug Class(es) Dates Sig (Normalized) Sig (Original) albuterol 0.83 mg/ml inhalation solution (14 sources) beta2-Adrenergic Agonist Start: 06-21-2023 albuterol (2.5 MG/3ML) 0.083% nebulizer solution Indications: Chronic obstructive pulmonary disease, unspecified COPD type ([facility]) Take 3 mL (2.5 mg) by nebulization [...] 0 Active aspirin 81 mg oral tablet (15 sources) Platelet Aggregation Inhibitor, Nonsteroidal Anti-inflammatory Drug [...] 81 mg. atorvastatin 40 mg oral tablet (19 sources) HMG-CoA Reductase Inhibitor Start: 1 End: 4 take 1 tablet by mouth once daily atorvastatin (Lipitor) 40 mg tablet Take 1 tablet (40 mg) by mouth once daily. 10/11/2020 10/18/2023 Discontinued (Therapy completed) Start: 04-26-2018 End: 07-28-2019 Atorvastatin (Lipitor) 80 [...] 12:00am Start: 01-17-2022 take 1 capsule by mo ut three times daily for cough benzonatate (TESSALON [...] 2019 12:00am carvedilol 6.25 mg oral tablet (19 sources) alpha-Adrenergic Paras, beta-Adrenergic Paras Start: 4 take 1 tablet by mouth in the morning carvedilol (Coreg) 6.25 MG tablet Indications: Essential hypertension (CMS/HCC) Take 1 tablet (6.25 mg) by mouth in the morning and 1 tablet (6.25 mg) in the evening. Take with meals. 0 06/27/2023 Active Start: 04-25-2021 carvedilol (CO REG) 6.25 mg tablet Start: 06-28-2020 take 0.5 tablet by outh twice daily carvedilol (Coreg) 12.5 mg tablet Take 0.5 tablets (6.25 mg) by mouth 2 times a day. 06/28/2020 Active Start: 04-26-2018 take 12.5 mg by mout h twice daily Carvedilol Active 12.5 MG PO Twice daily April 26, 2018 12:00am cholecalciferol 0.025 mg oral tablet (12 sources) Vitamin D Start: 07-28-2019 take 1 tablet by mouth once daily Cholecalciferol (Vitamin D3) (Vitamin D3) 25 mcg (1,000 unit) Tablet Active 1000 UNIT PO Daily July 28, 2019 12:00am take 1 tablet by mouth once gretchen y cholecalciferol (Vitamin D-3) 50 MCG (2000 UT) tablet Take 1 tablet (50 mcg) by mouth once daily. Active doxycycline hyclate 100 mg oral tablet [...] DO Active hydroCHLOROthiazide 25 mg oral tablet (11 sources) Thiazide Diuretic Start: 10-11-2020 hydroCHLOROthiazide (HYDRODIURIL, ESIDRIX) 25 mg tablet Take by mouth q 24 HR. 0 10/11/2020 Active Start: 04-26-2018 take 1 tablet by swetha th once daily hydroCHLOROthiazide (HYDRODiuril) 25 mg tablet Take 1 tablet (25 mg) by mouth once daily. 10/11/2020 Active Comment on above: Take by mouth [...] in the MR contrast administration guidelines link. losartan potassium 50 mg oral tablet (20 sources) Angiotensin 2 Receptor Paras Start: 10-03-2023 losartan (Cozaar) 50 mg tablet Indications: Essential hypertension TAKE 1 TABLET DAILY (NEW DOSE) 90 tablet 3 10/03/2023 Active Start: 09-07-2022 take 1 tablet by swetha th once daily Losartan Potassium 50 MG Oral Tablet TAKE 1 TABLET DAILY. Quantity: 90 Refills: 3 Ordered: 07-Sep-2022 Rene Castro MD Start : 07-Sep-2022 Active new dose Start: 08-15-2021 End: 10-18-2023 take 1 tablet by mouth twice daily losartan (Cozaar) 25 mg tablet Take 1 tablet (25 mg) by mouth 2 times a day. 09/05/2021 10/18/2023 Discontinued (Dose adjustment) Start: 04-26-2018 take 25 mg by mouth once daily Losartan Active 25 MG PO Daily April 26, 2018 12:00am magnesium oxide 250 mg oral tablet (4 sources) take 1 tablet by mouth once daily magnesium oxide (Mag-Ox) 250 mg magnesium tablet Take 1 tablet (250 mg) by mouth once daily. Active Multivitamin preparation (4 sources) Start: 07-28-2019 take 1 tablet by mouth once daily Multivitamin Active 1 TAB PO Daily July 28, 2019 12:00am Start: 07-28-2019 take 1 tablet by swetha th once daily Multivitamin Active 1 TAB PO Daily July 28, 2019 1:00am Start: 08-24-2006 take 1 tablet by swetha th once daily multivitamin (MULTIPLE VITAMINS ORAL) 1 tablet once daily. 08/24/2006 Active Start: 08-24-2006 take 1 tablet by swetha [...] t ongue. omega-3 fatty acids-fish oil (One-Per-Day [place]-3) 684-1,200 mg capsule (2 sources) omega-3 fatty acids-fish oil (One-Per-Day [place]-3) 684-1,200 mg capsule Take as directed Active omega-3 fatty ac ids-fish oil (One-Per-Day [place]-3) 684-1,200 mg capsule Take as directed 0 Active omeprazole 20 mg delayed release oral capsule (19 sources) Proton Pump Inhibitor Start: 08-15-2021 take 1 capsule by mouth once daily omeprazole (PriLOSEC) [address] capsule Take 1 capsule (20 mg) by mouth once daily. 08/15/2021 Active Start: 04-26-2018 take 20 mg [...] administer with food or milk rosuvastatin calcium 40 mg oral tablet (3 sources) HMG-CoA Reductase Inhibitor Start: 10-18-2023 End: 10-17-2024 take 1 tablet by mouth once daily rosuvastatin (Crestor) 40 mg tablet Indications: Coronary artery disease involving [place] coronary artery of [place] heart without angina pectoris , Mixed hyperlipidemia Take 1 tablet (40 mg) by mouth once daily. 90 tablet 3 10/18/2023 10/17/2024 Active Start: 07-28-2019 take 20 mg by mouth once daily Rosuvastatin Active 20 MG PO Daily July 28, 2019 12:00am sildenafil 100 mg oral tablet (13 sources) Phosphodiesterase 5 Inhibitor Start: 07-28-2019 End: 03-23-2023 take 100 mg by mouth once daily Sildenafil Active 100 MG PO Daily July 28, 2019 12:00am tamsulosin hydrochloride 0.4 mg oral capsule (19 sources) alpha-Adrenergic Paras Start: 06-28-2020 take 2 capsules by mouth once daily tamsulosin (Flomax) 0.4 mg 24 hr capsule Take 2 capsules (0.8 mg) by mouth once daily. 06/28/2020 Active Start: 06-28-2020 take 2 capsules by m outh once daily Tamsulosin HCl - 0.4 MG Oral Capsule TAKE 2 CAPSULE Daily Quantity: 0 Refills: 0 Ordered: 10-Oct-2020 DO Start : 28-Jun-2020 Active Start: 04-26-2018 take 0.4 mg by mouth once gretchen y Tamsulosin Active 0.4 MG PO Daily April 26, 2018 12:00am take 1 capsule by mo uth every twenty-four hours in the morning tamsulosin [...] 12:00am vitamin e 180 mg oral capsule (14 sources) Start: 7 take 400 [IU] by [...] 1 tablet by swetha th once daily. zinc gluconate 30 mg oral tablet (11 sources) take 1 tablet by mouth once daily zinc gluconate 30 mg tablet Take 1 tablet (30 mg) by mouth once daily. Active Zinc Gluconate 3 0 mg tab Take by mouth q 24 HR. 0 Active Comment on above: Take by mouth q 24 H R. Completed/Discontinued Medications Medication Drug Class(es) Dates Sig (Normalized) Sig (Original) ezetimibe 10 mg oral tablet (7 sources) Dietary Cholesterol Absorption Inhibitor Start: 08-18-2019 [...] mg by inhalation every eight hours Ipratropium [place] Discontinued 0.5 MG INHALATION Q8H April 26, 2018 12:00am July 28, 2019 6:55am levoFLOXacin 750 mg oral tablet (2 sources) Quinolone Antimicrobial Start: 04-26-2018 End: 05-06-2018 take 1 tablet by mouth every twenty-four hours Levofloxacin (Levaquin) 750 mg tablet Discontinued 750 MG PO Q24H 10 April 26, 2018 12:00am May 06, 2018 12:02am Magnesium (6 sources) take 1 tablet by mouth once daily Magnesium 250 MG Oral Tablet TAKE 1 TABLET DAILY. Quantity: 0 Refills: 0 Ordered: 07-Sep-2022 DO Active [place] 3 CAPS (2 sources) [place] 3 CAPS MARLEN E DIRECTED. Quantity: 0 Refills: 0 Ordered: 05-Sep-2021 DO Active valACYclovir 1000 mg oral tablet (5 sources) Herpesvirus Nucleoside Analog DNA Polymerase Inhibitor, Herpes Simplex Virus Nucleoside Analog DNA Polymerase Inhibitor, Herpes Zoster Virus Nucleoside Analog DNA Polymerase Inhibitor Start: 02-01-2022 take 1 tablet by mouth three times [...] [Coronary atherosclerosis of unspecified type of vessel, [place] or graft] Onset: 01-03-2023 03-23-2023 Chronic Disorders of lipid metabolism (17 sources) Hyperlipidemia; Translations: [Other and unspecified hyperlipidemia] Onset: 01-03-2023 03-23-2023 Chronic Esophageal disorders (12 sources) Gastroesophageal reflux disease; Translations: [Esophageal reflux] Onset: 02-13-2023 02-13-2023 Chronic Essential hypertension (19 sources) Essential hypertension; Translations: [Unspecified essential hypertension] [...] Episodic Other nutritional; endocrine; and metabolic disorders (12 sources) Obesity; Translations: [Obesity, unspecified] Onset: 02-13-2023 03-23-2023 Chronic Other nutritional; endocrine; and metabolic disorders (2 sources) Morbid obesity; Translations: [Morbid (severe) obesity due to excess calories] Onset: 03-14-2023 03-14-2023 Chronic Other nutritional; endocrine; and metabolic disorders (2 sources) Obesity, unspecified; Translations: [Obesity, unspecified] Onset: 03-23-2023 Chronic Other nutritional; endocrine; and metabolic disorders (2 sources) Body mass index (BMI) 35.0-35.9, adult; Translations: [Body mass index (BMI) 35.0-35.9, adult] Onset: 03-23-2023 Chronic Other screening for suspected conditions (not mental disorders or infectious disease) (2 sources) History of adenomatous polyp of colon; Translations: [Encounter for screening for malignant neoplasm of colon] 07-28-2019 Episodic Other upper respiratory infections (2 sources) Chronic sinusitis; Translations: [Chronic sinusitis, unspecified] Onset: 03-14-2023 03-14-2023 Chronic Screening and history of mental health and substance abuse codes (15 sources) Ex-smoker; Translations: [Personal history of tobacco use] Onset: 02-13-2023 02-13-2023 Episodic Comment on above: QUIT IN 1984; Past or Other Problems Problem Classification Problem Date Documented Da te Episodic/Chronic Coronary atherosclerosis and other heart disease (2 sources) Presence of coronary angioplasty implant and graft; Translations: [Presence of coronary angioplasty implant and graft] Onset: 02-13-2023 Episodic Other nervous system disorders (1 source) Clonic hemifacial spasm, right; Translations: [Clonic hemifacial spasm, right] Onset: 08-08-2022 Episodic Other upper respiratory disease (2 sources) Polyp of nasal sinus; Translations: [Other polyp of sinus] Onset: 03-14-2023 03-14-2023 Episodic Unclassified (2 sources) Onset: 03-23-2023 Resolved: 10-18-2023 03-23-2023 Viral infection (4 sources) Disease caused by 2019-nCoV; Translations: [COVID-19] Onset: 03-14-2023 10-15-2020 Episodic Results Test Name Value Interpretation Reference Range Facility Activated partial thrombopla stin time (aPTT) in platelet poor plasma by coagulation aOrdered By: Jasper Martinez on 06-14-2023 aPTT Coag (PPP) [Time] 30.2 s 25.1-36.5 [facility] Comment on above: A hematocrit value g reater than 55% may lead to inaccurate results in coagulation testing. Patients having hematocrit values >55% require a special collection tube for coagulation studies. Please contact the laboratory at [phone] for redraw instructions. Alanine aminotransferase [En zymatic activity/volume] in Serum or PlasmaOrdered By: Jasper Martinez on 06-14-2023 ALT [Catalytic activity/Vol] 37 U/L 7-52 [facility] Albumin [Mass/volume] in Ser um or Plasma by Bromocresol green (BCG) dye binding methoOrdered By: aJsper Martinez on 06-14-2023 Albumin BCG dye [Mass/Vol] 4.1 g/dL 3.5-5.7 [facility] Alkaline phosphatase [Enzyma tic activity/volume] in Serum or PlasmaOrdered By: Jasper Martinez on 06-14-2023 ALP [Catalytic activity/Vol] 59 U/L 34-104 [facility] Aspartate aminotransferase [ Enzymatic activity/volume] in Serum or PlasmaOrdered By: Jasper Martinez on 06-14-2023 AST [Catalytic activity/Vol] 29 U/L 13-39 [facility] B-Type Natriuretic Peptideon 06-14-2023 Natriuretic peptide B (Bld) [Mass/Vol] 67.0 pg/mL Normal 5-100 [facility] Comment on above: Result Comment: PERF ORMED BY: [place] [address] PATHOLOGIST CLINICAL RESEARCH TECH RAPHAEL RANGEL M.D. Performed By: #### C OVID19 FLU RSV, CEPHEID NEG #### [address] Basophils Auto (Bld) [#/Vol] Ordered By: Jasper Martinez on 06-14-2023 Basophils (Bld) [#/Vol] 0.0 10*3/uL 0.0-0.2 [facility] Basophils/100 WBC Auto (Bld) Ordered By: Jasper Martinez on 06-14-2023 Basophils/100 WBC (Bld) 0.6 % . [facility] Bilirubin.total [Mass/volume ] in Serum or PlasmaOrdered By: Jasper Martinez on 06-14-2023 Bilirubin [Mass/Vol] 0.4 mg/dL 0.3-1.0 [facility] COVID CepheidOrdered By: Asya Martinez on 06-14-2023 SARS-CoV-2 (COVID-19) Ab IA Ql Negative Negative [facility] Comment on above: This is a duplicate Cepheid Xpert Xpress CoV-2/Flu/RSV Plus RNA by RT-PCR result to be used for statistical tracking purpose only. SARS-CoV-2 (COVID-19) RNA VERONA+probe Ql (Unsp spec) [facility] COVID-19 / Flu A/B / RSV [...] or Cepheid Disclaimer revoked sooner. PERFORMED BY: [place] [address] PATHOLOGIST CLINICAL RESEARCH TECH RAPHAEL RANGEL M.D. Normal [facility] Comment on above: Performed By: #### C OVID19 FLU RSV, CEPHEID NEG #### [place] [id number] [facility] Calcium [Mass/volume] in Ser um or PlasmaOrdered By: Jasper Martinez on 06-14-2023 Calcium [Mass/Vol] 9.0 mg/dL 8.6-10.3 [facility] Carbon dioxide, total [Moles /volume] in Serum or PlasmaOrdered By: Jasper Martinez on 06-14-2023 CO2 [Moles/Vol] 23.4 mmol/L 21.0-31.0 [facility] Cepheid COVID PCR Negativeon 06-14-2023 SARS-CoV-2 (COVID-19) RNA VERONA+probe Ql (Unsp spec) Negative Normal Negative [facility] Comment on above: Result Comment: This is a duplicate Cepheid Xpert Xpress CoV-2/Flu/RSV Plus RNA by RT-PCR result to be used for statistical tracking purpose only. PERFORMED BY: [place] [id number] PATHOLOGIST CLINICAL RESEARCH TECH RAPHAEL RANGEL M.D. Performed By: #### C OVID19 FLU RSV, CEPHEID NEG #### [address] Chloride [Moles/volume] in S taylor or PlasmaOrdered By: Jasper Martinez on 06-14-2023 Chloride [Moles/Vol] 105 mmol/L 98-107 [facility] Complete Blood Count Auto Di ffon 06-14-2023 Basophils (Bld) [#/Vol] 0.0 10*3/uL Normal 0.0-0.2 [facility] Comment on above: Result Comment: PERF ORMED BY: [place] [address] PATHOLOGIST CLINICAL RESEARCH TECH RAPHAEL RANGEL M.D. Performed By: #### B HYDRAULIC CORRUGATING MACHINE OPERATOR, CK, MG, CBC, HS TROP, PTT, PT, CMP #### [address] Basophils/100 WBC (Bld) 0.6 % Normal . [facility] Comment on above: Performed By: #### B HYDRAULIC CORRUGATING MACHINE OPERATOR, CK, MG, CBC, HS TROP, PTT, PT, CMP #### [address] Eosinophils (Bld) [#/Vol] 0.8 10*3/uL High 0.0-0.45 [facility] Comment on above: Performed By: #### B HYDRAULIC CORRUGATING MACHINE OPERATOR, CK, MG, CBC, HS TROP, PTT, PT, CMP #### [address] Eosinophils/100 WBC (Bld) 9.6 % Normal . [facility] Comment on above: Performed By: #### B HYDRAULIC CORRUGATING MACHINE OPERATOR, CK, MG, CBC, HS TROP, PTT, PT, CMP #### [address] Erythrocyte distribution width (RBC) [Ratio] 14.4 % Normal 12.0-14.8 [facility] Comment on above: Performed By: #### B HYDRAULIC CORRUGATING MACHINE OPERATOR, CK, MG, CBC, HS TROP, PTT, PT, CMP #### [address] Hematocrit (Bld) [Volume fraction] 40.8 % Normal 38.8-50.0 [facility] Comment on above: Performed By: #### B HYDRAULIC CORRUGATING MACHINE OPERATOR, CK, MG, CBC, HS TROP, PTT, PT, CMP #### [address] Hemoglobin (Bld) [Mass/Vol] 14.3 g/dL Normal 13.0-17.0 [facility] Comment on above: Performed By: #### B HYDRAULIC CORRUGATING MACHINE OPERATOR, CK, MG, CBC, HS TROP, PTT, PT, CMP #### [address] Lymphocytes (Bld) [#/Vol] 1.5 10*3/uL Normal 1.00-4.8 [facility] Comment on above: Performed By: #### B HYDRAULIC CORRUGATING MACHINE OPERATOR, CK, MG, CBC, HS TROP, PTT, PT, CMP #### [address] Lymphocytes/100 WBC (Bld) 18.5 % Normal . [facility] Comment on above: Performed By: #### B HYDRAULIC CORRUGATING MACHINE OPERATOR, CK, MG, CBC, HS TROP, PTT, PT, CMP #### [address] MCH (RBC) [Entitic mass] 30.1 pg Normal 27.5-35.2 [facility] Comment on above: Performed By: #### B HYDRAULIC CORRUGATING MACHINE OPERATOR, CK, MG, CBC, HS TROP, PTT, PT, CMP #### [address] MCV (RBC) [Entitic vol] 86.2 fL Normal 83.5-101 [facility] Comment on above: Performed By: #### B HYDRAULIC CORRUGATING MACHINE OPERATOR, CK, MG, CBC, HS TROP, PTT, PT, CMP #### [address] Mean Corpuscular HGB Conc 34.9 g/dL Normal 32.5-35.6 [facility] Comment on above: Performed By: #### B HYDRAULIC CORRUGATING MACHINE OPERATOR, CK, MG, CBC, HS TROP, PTT, PT, CMP #### [address] Monocytes (Bld) [#/Vol] 0.8 10*3/uL Normal 0.0-0.8 [facility] Comment on above: Performed By: #### B HYDRAULIC CORRUGATING MACHINE OPERATOR, CK, MG, CBC, HS TROP, PTT, PT, CMP #### [address] Monocytes/100 WBC (Bld) 16.39 % Normal 0.00-20.00 [facility] Comment on above: Performed By: #### B HYDRAULIC CORRUGATING MACHINE OPERATOR, CK, MG, CBC, HS TROP, PTT, PT, CMP #### [address] Monocytes/100 WBC (Bld) 10.1 % Normal . [facility] Comment on above: Performed By: #### B HYDRAULIC CORRUGATING MACHINE OPERATOR, CK, MG, CBC, HS TROP, PTT, PT, CMP #### [address] Neutrophils (Bld) [#/Vol] 4.9 10*3/uL Normal 1.8-7.7 [facility] Comment on above: Performed By: #### B HYDRAULIC CORRUGATING MACHINE OPERATOR, CK, MG, CBC, HS TROP, PTT, PT, CMP #### [address] Neutrophils/100 WBC (Bld) 61.2 % Normal . [facility] Comment on above: Performed By: #### B HYDRAULIC CORRUGATING MACHINE OPERATOR, CK, MG, CBC, HS TROP, PTT, PT, CMP #### [address] NRBC% 0.1 /100{WBC} Normal 0-0.5 [facility] Comment on above: Performed By: #### B HYDRAULIC CORRUGATING MACHINE OPERATOR, CK, MG, CBC, HS TROP, PTT, PT, CMP #### [address] Platelet mean volume (Bld) [Entitic vol] 8.4 fL Normal 6.6-10.1 [facility] Comment on above: Performed By: #### B HYDRAULIC CORRUGATING MACHINE OPERATOR, CK, MG, CBC, HS TROP, PTT, PT, CMP #### [facility] [address] Platelets (Bld) [#/Vol] 181 10*3/uL Normal 150-450 [facility] Comment on above: Performed By: #### B HYDRAULIC CORRUGATING MACHINE OPERATOR, CK, MG, CBC, HS TROP, PTT, PT, CMP #### [facility] [address] RBC (Bld) [#/Vol] 4.74 10*6/uL Normal 3.90-5.60 [facility] Comment on above: Performed By: #### B HYDRAULIC CORRUGATING MACHINE OPERATOR, CK, MG, CBC, HS TROP, PTT, PT, CMP #### [address] WBC (Bld) [#/Vol] 8.1 10*3/uL Normal 4.1-10.5 [facility] Comment on above: Performed By: #### B HYDRAULIC CORRUGATING MACHINE OPERATOR, CK, MG, CBC, HS TROP, PTT, PT, CMP #### [address] Comprehensive Metabolic Pane maria esther 06-14-2023 Albumin [Mass/Vol] 4.1 g/dL Normal 3.5-5.7 [facility] Comment on above: Performed By: #### B HYDRAULIC CORRUGATING MACHINE OPERATOR, CK, MG, CBC, HS TROP, PTT, PT, CMP #### [address] Albumin/Globulin [Mass ratio] 1.6 {ratio} Normal [facility] Comment on above: Performed By: #### B HYDRAULIC CORRUGATING MACHINE OPERATOR, CK, MG, CBC, HS TROP, PTT, PT, CMP #### [address] ALP [Catalytic activity/Vol] 59 U/L Normal 34-104 [facility] Comment on above: Performed By: #### B HYDRAULIC CORRUGATING MACHINE OPERATOR, CK, MG, CBC, HS TROP, PTT, PT, CMP #### [address] ALT [Catalytic activity/Vol] 37 U/L Normal 7-52 [facility] Comment on above: Performed By: #### B HYDRAULIC CORRUGATING MACHINE OPERATOR, CK, MG, CBC, HS TROP, PTT, PT, CMP #### [facility] [address] Anion gap [Moles/Vol] 11.5 mmol/L Normal 6.0-15.0 [facility] Comment on above: Performed By: #### B HYDRAULIC CORRUGATING MACHINE OPERATOR, CK, MG, CBC, HS TROP, PTT, PT, CMP #### [address] AST [Catalytic activity/Vol] 29 U/L Normal 13-39 [facility] Comment on above: Performed By: #### B HYDRAULIC CORRUGATING MACHINE OPERATOR, CK, MG, CBC, HS TROP, PTT, PT, CMP #### [address] Bilirubin [Mass/Vol] 0.4 mg/dL Normal 0.3-1.0 [facility] Comment on above: Performed By: #### B HYDRAULIC CORRUGATING MACHINE OPERATOR, CK, MG, CBC, HS TROP, PTT, PT, CMP #### [address] Calcium [Mass/Vol] 9.0 mg/dL Normal 8.6-10.3 [facility] Comment on above: Performed By: #### B HYDRAULIC CORRUGATING MACHINE OPERATOR, CK, MG, CBC, HS TROP, PTT, PT, CMP #### [facility] [address] [place] [address] Chloride [Moles/Vol] 105 mmol/L Normal 98-107 [facility] Comment on above: Performed By: #### B HYDRAULIC CORRUGATING MACHINE OPERATOR, CK, MG, CBC, HS TROP, PTT, PT, CMP #### [address] CO2 [Moles/Vol] 23.4 mmol/L Normal 21.0-31.0 [facility] Comment on above: Performed By: #### B HYDRAULIC CORRUGATING MACHINE OPERATOR, CK, MG, CBC, HS TROP, PTT, PT, CMP #### [address] Creatinine [Mass/Vol] 0.89 mg/dL Normal 0.70-1.30 [facility] Comment on above: Performed By: #### B HYDRAULIC CORRUGATING MACHINE OPERATOR, CK, MG, CBC, HS TROP, PTT, PT, CMP #### [facility] [address] Creatinine Clr Calc Pharmacy 92.42 [facility] Comment on above: Performed By: #### B HYDRAULIC CORRUGATING MACHINE OPERATOR, CK, MG, CBC, HS TROP, PTT, PT, CMP #### [facility] [address] GFR/1.73 sq M.predicted MDRD (S/P/Bld) [Vol rate/Area] mL/min/{1.73_m2} [facility] Comment on above: Performed By: #### B HYDRAULIC CORRUGATING MACHINE OPERATOR, CK, MG, CBC, HS TROP, PTT, PT, CMP #### [facility] [address] Globulin (S) [Mass/Vol] 2.5 g/dL [facility] Comment on above: Performed By: #### B HYDRAULIC CORRUGATING MACHINE OPERATOR, CK, MG, CBC, HS TROP, PTT, PT, CMP #### [facility] [address] Glucose [Mass/Vol] 144 mg/dL High 70-100 [facility] Comment on above: Result Comment: [place] Glucose Reference Range is dependent on time and content of last meal. Glucose of more than 200 mg/dL in a nonstressed, ambulatory subject supports the diagnosis of Diabetes Mellitus. ADA recommended reference range Performed By: #### B HYDRAULIC CORRUGATING MACHINE OPERATOR, CK, MG, CBC, HS TROP, PTT, PT, CMP #### [facility] [address] Potassium [Moles/Vol] 3.9 mmol/L Normal 3.5-5.1 [facility] Comment on above: Performed By: #### B HYDRAULIC CORRUGATING MACHINE OPERATOR, CK, MG, CBC, HS TROP, PTT, PT, CMP #### [facility] [address] Protein [Mass/Vol] 6.6 g/dL Normal 6.4-8.9 [facility] Comment on above: Performed By: #### B HYDRAULIC CORRUGATING MACHINE OPERATOR, CK, MG, CBC, HS TROP, PTT, PT, CMP #### [facility] 1111 [place] [address] [place] Sodium [Moles/Vol] 136 mmol/L Normal 136-145 [facility] Comment on above: Performed By: #### B HYDRAULIC CORRUGATING MACHINE OPERATOR, CK, MG, CBC, HS TROP, PTT, PT, CMP #### [facility] [address] [place] [address] [place] Urea nitrogen [Mass/Vol] 12 mg/dL Normal 7-25 [facility] Comment on above: Performed By: #### B HYDRAULIC CORRUGATING MACHINE OPERATOR, CK, MG, CBC, HS TROP, PTT, PT, CMP #### [facility] [address] [place] [address] [place] Creatine Kinaseon 06-14-2023 CK [Catalytic activity/Vol] 185 U/L Normal 30- [facility] Comment on above: Performed By: #### C OVID19 FLU RSV, CEPHEID NEG #### [facility] [address] [place] [id number] [place] Creatine kinase [Enzymatic a ctivity/volume] in Serum or PlasmaOrdered By: Jasper Martinez on 06-14-2023 CK [Catalytic activity/Vol] 185 U/L 30-223 [facility] Creatinine [Mass/volume] in Serum or PlasmaOrdered By: Jasper Martinez on 06-14-2023 Creatinine [Mass/Vol] 0.89 mg/dL 0.70-1.30 [facility] ECG 12 lead ECGon 06-14-2023 ECG 12 lead ECG [facility] [place] [address] [place] [address] Electrocardiograph Report Signed Patient: Demarcus Panchal MR#: [id number] 652 : 1955 Acct:[id number] Age/Sex: 68 / M ADM Date: 06/14/23 Loc: ER Room: Type: [facility] ER Attending Dr: Ordering Provider: Jasper Martinez [...] sinus rhythm Confirmed by Jasper MARTINEZ DO ([id number]) on 06/14/2023 2:25:14 PM Referred By: Electronically Signed By:Jasper MARTINEZ DO Transcribed By: MUS Signed By Jasper Martinez DO 0 06/14/23 1425 Normal [facility] Eosinophils Auto (Bld) [#/Vo l]Ordered By: Jasper Martinez on 06-14-2023 Eosinophils (Bld) [#/Vol] 0.8 10*3/uL 0.0-0.45 [facility] Eosinophils/100 WBC Auto (Bl d)Ordered By: Jasper Martinez on 06-14-2023 Eosinophils/100 WBC (Bld) 9.6 % . [facility] Erythrocyte distribution wid th Auto (RBC) [Ratio]Ordered By: Jasper Martinez on 06-14-2023 Erythrocyte distribution width (RBC) [Ratio] 14.4 % 12.0-14.8 [facility] Globulin Calc (S) [Mass/Vol] Ordered By: Jasper Martinez on 06-14-2023 Globulin (S) [Mass/Vol] 2.5 g/dL [facility] Glucose [Mass/volume] in Ser um or PlasmaOrdered By: Jasper Martinez on 06-14-2023 Glucose [Mass/Vol] 144 mg/dL 70-100 [facility] Comment on above: ADA recommended refe rence rangeRandom Glucose Reference Range is dependent on time and content of last meal. Glucose of more than 200 mg/dL in a nonstressed, ambulatory subject supports the diagnosis of Diabetes Mellitus. Hematocrit Auto (Bld) [Volum e fraction]Ordered By: Jasper Martinez on 06-14-2023 Hematocrit (Bld) [Volume fraction] 40.8 % 38.8-50.0 [facility] Hemoglobin [Mass/volume] in BloodOrdered By: Jasper Martinez on 06-14-2023 Hemoglobin (Bld) [Mass/Vol] 14.3 g/dL 13.0-17.0 [facility] INR in Platelet poor plasma by Coagulation assayOrdered By: Jasper Martinez on 06-14-2023 INR Coag (PPP) [Relative time] 1.1 {INR} [facility] Comment on above: INR Therapeutic Rang [...] RBC Auto (Bld) [#/Vol] 8.1 10*3/uL 4.1-10.5 [facility] Lymphocytes Auto (Bld) [#/Vo l]Ordered By: Jasper Martinez on 06-14-2023 Lymphocytes (Bld) [#/Vol] 1.5 10*3/uL 1.00-4.8 [facility] Lymphocytes/100 WBC Auto (Bl d)Ordered By: Jasper Martinez on 06-14-2023 Lymphocytes/100 WBC (Bld) 18.5 % . [facility] MCH Auto (RBC) [Entitic mass ]Ordered By: Jasper Martinez on 06-14-2023 MCH (RBC) [Entitic mass] 30.1 pg 27.5-35.2 [facility] MCHC Auto (RBC) [Mass/Vol]Or dered By: Jasper Martinez on 06-14-2023 MCHC (RBC) [Mass/Vol] 34.9 g/dL 32.5-35.6 [facility] MCV Auto (RBC) [Entitic vol] Ordered By: Jasper Martinez on 06-14-2023 MCV (RBC) [Entitic vol] 86.2 fL 83.5-101 [facility] Magnesiumon 06-14-2023 Magnesium [Mass/Vol] 2.0 mg/dL Normal 1.9-2.7 [facility] Comment on above: Result Comment: PERF ORMED BY: [facility] [address] [place] [address] PATHOLOGIST CLINICAL RESEARCH TECH RAPHAEL RANGEL M.D. Performed By: #### B HYDRAULIC CORRUGATING MACHINE OPERATOR, CK, MG, CBC, HS TROP, PTT, PT, CMP #### [facility] [address] [place] [id number] [facility] Magnesium [Mass/volume] in S taylor or PlasmaOrdered By: Jasper Martinez on 06-14-2023 Magnesium [Mass/Vol] 2.0 mg/dL 1.9-2.7 [facility] Monocyte distribution width [Entitic volume] in Blood by AutomatedOrdered By: Jasper Martinez on 06-14-2023 Monocyte distribution width Auto (Bld) [Entitic vol] 16.39 % 0.00-20.00 [facility] Monocytes Auto (Bld) [#/Vol] Ordered By: Jasper Martinez on 06-14-2023 Monocytes (Bld) [#/Vol] 0.8 10*3/uL 0.0-0.8 [facility] Monocytes/100 WBC Auto (Bld) Ordered By: Jasper Martinez on 06-14-2023 Monocytes/100 WBC (Bld) 10.1 % . [facility] Natriuretic peptide B [Mass/ Vol]Ordered By: Jasper Martinez on 06-14-2023 Natriuretic peptide B (Bld) [Mass/Vol] 67.0 pg/mL 5-100 [facility] Neutrophils Auto (Bld) [#/Vo l]Ordered By: Jasper Martinez on 06-14-2023 Neutrophils (Bld) [#/Vol] 4.9 10*3/uL 1.8-7.7 [facility] Neutrophils/100 WBC Auto (Bl d)Ordered By: Jasper Martinze on 06-14-2023 Neutrophils/100 WBC (Bld) 61.2 % . [facility] No Panel InformationOrdered By: Jasper Martinez on 06-14-2023 Estimated GFR (CKD-EPI) > 60.0 mL/Min [facility] Pharmacy Creatinine Clearance (Chem 92.42 [facility] Nucleated erythrocytes [Pres ence] in Blood by Automated countOrdered By: Jasper Martinez on 06-14-2023 Nucleated RBC Auto Ql (Bld) 0.1 /100{WBC} 0-0.5 [facility] Partial Thromboplastin Timeo n 06-14-2023 aPTT Coag (Bld) [Time] 30.2 s Normal 25.1-36.5 [facility] Comment on above: Result Comment: A he matocrit value greater than 55% may lead to inaccurate results in coagulation testing. Patients having hematocrit values >55% require a special collection tube for coagulation studies. Please contact the laboratory at [phone] for redraw instructions. PERFORMED BY: [place] [address] PATHOLOGIST CLINICAL RESEARCH TECH RAPHAEL RANGEL M.D. Performed By: #### C OVID19 FLU RSV, CEPHEID NEG #### [address] Platelet mean volume Auto (B ld) [Entitic vol]Ordered By: Jasper Martinez on 06-14-2023 Platelet mean volume (Bld) [Entitic vol] 8.4 fL 6.6-10.1 [facility] Platelets Auto (Bld) [#/Vol] Ordered By: Jasper Martinez on 06-14-2023 Platelets (Bld) [#/Vol] 181 10*3/uL 150-450 [facility] Potassium [Moles/volume] in Serum or PlasmaOrdered By: Jasper Martinez on 06-14-2023 Potassium [Moles/Vol] 3.9 mmol/L 3.5-5.1 [facility] Protein [Mass/volume] in Ser um or PlasmaOrdered By: Jasper Martinez on 06-14-2023 Protein [Mass/Vol] 6.6 g/dL 6.4-8.9 [facility] Prothrombin Time INRon 06-14 INR Coag (PPP) [Relative time] 1.1 {INR} Normal [facility] Comment on above: Result Comment: INR [...] 3 - 4.5 Performed By: #### B HYDRAULIC CORRUGATING MACHINE OPERATOR, CK, MG, CBC, HS TROP, PTT, PT, CMP #### [facility] [address] [place] [address] [facility] PT Coag (PPP) [Time] 12.1 s Normal 9.0-12.9 [facility] Comment on above: Result Comment: A he matocrit value greater than 55% may lead to inaccurate results in coagulation testing. Patients having hematocrit values >55% require a special collection tube for coagulation studies. Please contact the laboratory at [phone] for redraw instructions. Performed By: #### B HYDRAULIC CORRUGATING MACHINE OPERATOR, CK, MG, CBC, HS TROP, PTT, PT, CMP #### [facility] [address] [place] [id number] [facility] Prothrombin time (PT)Ordered By: Jasper Martinez on 06-14-2023 PT Coag (PPP) [Time] 12.1 s 9.0-12.9 [facility] Comment on above: A hematocrit value g reater than 55% may lead to inaccurate results in coagulation testing. Patients having hematocrit values >55% require a special collection tube for coagulation studies. Please contact the laboratory at [phone] for redraw instructions. RBC Auto (Bld) [#/Vol]Ordere d By: Jasper Martinez on 06-14-2023 RBC (Bld) [#/Vol] 4.74 10*6/uL 3.90-5.60 [facility] Serum or plasma albumin/glob ulin mass ratioOrdered By: Jasper Martinez on 06-14-2023 Albumin/Globulin [Mass ratio] 1.6 {ratio} [facility] Serum or plasma anion gap de terminationOrdered By: Jasper Martinez on 06-14-2023 Anion gap [Moles/Vol] 11.5 mmol/L 6.0-15.0 [facility] Sodium [Moles/volume] in Ser um or PlasmaOrdered By: Jasper Martinez on 01-18-2024 Sodium [Moles/Vol] 136 mmol/L 136-145 [facility] Troponin I High Sensitivityo n 06-14-2023 Troponin I High Sensitivity 26.8 pg/mL High 0.0-20.0 [facility] Comment on above: Result Comment: PERF ORMED BY: [place] [address] PATHOLOGIST CLINICAL RESEARCH TECH RAPHAEL RANGEL M.D. Performed By: #### C OVID19 FLU RSV, CEPHEID NEG #### [address] Troponin I.cardiac [Mass/vol ume] in Serum or Plasma by Detection limit <= 0.01 ng/Ordered By: Jasper Martinez on 06-14-2023 Troponin I.cardiac DL <= 0.01 ng/mL [Mass/Vol] 26.8 pg/mL 0.0-20.0 [facility] Urea nitrogen [Mass/volume] in Serum or PlasmaOrdered By: Jasper Martinez on 06-14-2023 Urea nitrogen [Mass/Vol] 12 mg/dL 7-25 [facility] WBC Auto (Bld) [#/Vol]Ordere d By: Jasper Martinez on 06-14-2023 WBC (Bld) [#/Vol] 8.1 10*3/uL 4.1-10.5 [facility] XR chest 2V*on 06-14-2023 XR chest 2V* [facility] [place] [address] [place] [address] XRay Report Signed Patient: Demarcus Panchal MR#: [id number] 652 : 1955 Acct:[id number] Age/Sex: 68 / M ADM Date: 06/14/23 Loc: ER Room: Type: [facility] ER Attending Dr: Copies to: Jasper Martinez [...] Salvador Nguyễn M.D.06/14/2023 1:59 PM Dictation Location: [place] [address] Transcribed By: [facility] 06/14/23 1359 Dictated By: Salvador Nguyễn DO 06/14/23 1354 Signed By: 06/14/23 1359 Normal [facility] Cardiac echo study Procedure on 03-20-2023 Ordered by an unspec ified provider. [facility] Alanine aminotransferase [En zymatic activity/volume] in Serum or PlasmaOrdered By: Sera Flower on 02-05-2023 ALT [Catalytic activity/Vol] 51 U/L 7-52 [facility] Albumin [Mass/volume] in Ser um or Plasma by Bromocresol green (BCG) dye binding methoOrdered By: Sera Flower on 02-05-2023 Albumin BCG dye [Mass/Vol] 4.4 g/dL 3.5-5.7 [facility] Alkaline phosphatase [Enzyma tic activity/volume] in Serum or PlasmaOrdered By: Sera Flower on 02-05-2023 ALP [Catalytic activity/Vol] 61 U/L 34-104 [facility] Aspartate aminotransferase [ Enzymatic activity/volume] in Serum or PlasmaOrdered By: Sera Flower on 02-05-2023 AST [Catalytic activity/Vol] 39 U/L 13-39 [facility] Bilirubin.total [Mass/volume ] in Serum or PlasmaOrdered By: Sera Flower on 02-05-2023 Bilirubin [Mass/Vol] 0.7 mg/dL 0.3-1.0 [facility] Calcium [Mass/volume] in Ser um or PlasmaOrdered By: Sera Flower on 02-05-2023 Calcium [Mass/Vol] 9.1 mg/dL 8.6-10.3 [facility] Carbon dioxide, total [Moles /volume] in Serum or PlasmaOrdered By: Sera Flower on 02-05-2023 CO2 [Moles/Vol] 28.0 mmol/L 21.0-31.0 [facility] Chloride [Moles/volume] in S taylor or PlasmaOrdered By: Sera Flower on 02-05-2023 Chloride [Moles/Vol] 103 mmol/L 98-107 [facility] Comprehensive Metabolic Pane maria esther 02-05-2023 Albumin [Mass/Vol] 4.4 g/dL Normal 3.5-5.7 [facility] Comment on above: Order Comment: PT IS FASTING Performed By: #### C MP #### [address] Albumin/Globulin [Mass ratio] 2.6 {ratio} Normal [facility] Comment on above: Order Comment: PT IS FASTING Performed By: #### C MP #### [address] ALP [Catalytic activity/Vol] 61 U/L Normal 34-104 [facility] Comment on above: Order Comment: PT IS FASTING Result Comment: PERF ORMED BY: [place] [address] PATHOLOGIST CLINICAL RESEARCH TECH RAPHAEL RANGEL M.D. Performed By: #### C MP #### [address] ALT [Catalytic activity/Vol] 51 U/L Normal 7-52 [facility] Comment on above: Order Comment: PT IS FASTING Performed By: #### C MP #### [address] Anion gap [Moles/Vol] 11.4 mmol/L Normal 6.0-15.0 [facility] Comment on above: Order Comment: PT IS FASTING Performed By: #### C MP #### [address] AST [Catalytic activity/Vol] 39 U/L Normal 13-39 [facility] Comment on above: Order Comment: PT IS FASTING Performed By: #### C MP #### [place] [address] [place] Bilirubin [Mass/Vol] 0.7 mg/dL Normal 0.3-1.0 [facility] Comment on above: Order Comment: PT IS FASTING Performed By: #### C MP #### [facility] [address] Calcium [Mass/Vol] 9.1 mg/dL Normal 8.6-10.3 [facility] Comment on above: Order Comment: PT IS FASTING Performed By: #### C MP #### [facility] [address] Chloride [Moles/Vol] 103 mmol/L Normal 98-107 [facility] Comment on above: Order Comment: PT IS FASTING Performed By: #### C MP #### [address] CO2 [Moles/Vol] 28.0 mmol/L Normal 21.0-31.0 [facility] Comment on above: Order Comment: PT IS FASTING Performed By: #### C MP #### [address] Creatinine [Mass/Vol] 1.00 mg/dL Normal 0.70-1.30 [facility] Comment on above: Order Comment: PT IS FASTING Performed By: #### C MP #### [address] GFR/1.73 sq M.predicted MDRD (S/P/Bld) [Vol rate/Area] mL/min/{1.73_m2} [facility] Comment on above: Order Comment: PT IS FASTING Performed By: #### C MP #### [facility] [address] [place] [address] [place] Globulin (S) [Mass/Vol] 1.7 g/dL [facility] Comment on above: Order Comment: PT IS FASTING Performed By: #### C MP #### [address] Glucose [Mass/Vol] 93 mg/dL Normal 70-100 [facility] Comment on above: Order Comment: PT IS FASTING Result Comment: [facility] Glucose Reference Range is dependent on time and content of last meal. Glucose of more than 200 mg/dL in a nonstressed, ambulatory subject supports the diagnosis of Diabetes Mellitus. ADA recommended reference range Performed By: #### C MP #### [facility] [address] Potassium [Moles/Vol] 4.4 mmol/L Normal 3.5-5.1 [facility] Comment on above: Order Comment: PT IS FASTING Performed By: #### C MP #### [facility] [address] [place] [id number] [place] Protein [Mass/Vol] 6.1 g/dL Low 6.4-8.9 [facility] Comment on above: Order Comment: PT IS FASTING Performed By: #### C MP #### [facility] [address] Sodium [Moles/Vol] 138 mmol/L Normal 136-145 [facility] Comment on above: Order Comment: PT IS FASTING Performed By: #### C MP #### [facility] [address] [place] [address] [place] Urea nitrogen [Mass/Vol] 15 mg/dL Normal 7-25 [facility] Comment on above: Order Comment: PT IS FASTING Performed By: #### C MP #### [facility] [address] [place] [address] [place] Creatinine [Mass/volume] in Serum or PlasmaOrdered By: Sera Flower on 02-05-2023 Creatinine [Mass/Vol] 1.00 mg/dL 0.70-1.30 [facility] ECH echo transthoracicon [facility] echo transthoracic [facility] [place] [address] [place] [address] Echocardiogram Signed Patient: Demarcus Panchal MR#: [id number] 652 : 1955 Acct:[id number] Age/Sex: 68 / M ADM Date: 02/05/23 Loc: Room: Type: [facility] Attending Dr: Rene Castro MD Ordering Provider: Rene Castro MD, [facility] Date of Service: 02/05/23/ [facility] echo transthoracic: HTN, ISCHEMIC CARDIOMYOPATHY Copies to: Rene Castro MD, [facility] BSA: 2.2 m2 BP: 141/82 mmHg HR: 53 Reason For Study: HTN, ISCHEMIC CARDIOMYOPATHY History: HTN, HLD, Former Smoker, [place], 5 Stents, Asthma, Emphysema, COVID Interpretation Summary [...] 02/05/23 1042 Signed By: Rene Castro MD, [facility] 02/05/23 1207 Normal [facility] Globulin Calc (S) [Mass/Vol] Ordered By: Sera Flower on 02-05-2023 Globulin (S) [Mass/Vol] 1.7 g/dL [facility] Glucose [Mass/volume] in Ser um or PlasmaOrdered By: Sera Flower on 02-05-2023 Glucose [Mass/Vol] 93 mg/dL 70-100 [facility] Comment on above: ADA recommended refe rence rangeRandom Glucose Reference Range is dependent on time and content of last meal. Glucose of more than 200 mg/dL in a nonstressed, ambulatory subject supports the diagnosis of Diabetes Mellitus. No Panel InformationOrdered By: Sera Flower on 02-05-2023 Estimated GFR (CKD-EPI) > 60.0 mL/Min [facility] Creatinine Clearance (Chem N/A [facility] No Panel Informationon 02-05 [facility] daniel 250 DO Work Phone: Potassium [Moles/volume] in Serum or PlasmaOrdered By: Sera Flower on 02-05-2023 Potassium [Moles/Vol] 4.4 mmol/L 3.5-5.1 [facility] Protein [Mass/volume] in Ser um or PlasmaOrdered By: Sera Flower on 02-05-2023 Protein [Mass/Vol] 6.1 g/dL 6.4-8.9 [facility] Serum or plasma albumin/glob ulin mass ratioOrdered By: Sera Flower on 02-05-2023 Albumin/Globulin [Mass ratio] 2.6 {ratio} [facility] Serum or plasma anion gap de terminationOrdered By: Sera Flower on 02-05-2023 Anion gap [Moles/Vol] 11.4 mmol/L 6.0-15.0 [facility] Sodium [Moles/volume] in Ser um or PlasmaOrdered By: Sera Flower on 02-05-2023 Sodium [Moles/Vol] 138 mmol/L 136-145 [facility] Urea nitrogen [Mass/volume] in Serum or PlasmaOrdered By: Sera Flower on 02-05-2023 Urea nitrogen [Mass/Vol] 15 mg/dL 7 [facility] CARDIAC STRESS/REST INJE CTIONon 01-03-2023 [facility] CARDIAC STRESS/REST INJECTION Patient Name: DEMARCUS PANCHAL STUDY: MYOCARDIAL PERFUSION STRESS TEST WITH LEXISCAN Performing facility: [facility], [address] [place] [address], [address], [address] Provider: Rene Castro MD, [facility] PCP: Dr. Hunter Flower Supervising provider: Danna Davis DO, [facility] INDICATION: CAD; HTN Hyperlipidemia Ischemic cardiomyopathy HISTORY: Gender: M; Age: 68 y/o ; Height: 172.72 cm; Weight: 992.3134021 kg. CAD; High Cholesterol; HTN; Quit smoking 38 years ago. Cardiac catheterization on 2009. PTCA on 2009. COMPARISON: Previous nuclear testing completed at [facility]. ACCESSION NUMBER(S): [id number]; [id number]; [id number] ORDERING CLINICIAN: RENE CASTRO TECHNIQUE: TWO DAY protocol. Stress injection: [...] Electronically signed by: RENE CASTRO MD Normal [facility] No Panel Informationon 01-03 Normal -[facility] daniel 250 DO Work Phone: Office Visit [...] Weight Tips; Status:Complete - Retrospective Authorization; Done: 07Sep2022 Some eating tips that can help you lose weight.; Status:Complete - Retrospective Authorization; Done: 07Sep2022 Essential hypertension, Ischemic cardiomyopathy Renew: Carvedilol 6.25 MG Oral Tablet (Coreg); TAKE 1 TABLET TWICE DAILY WITH MEALS SocHx: Former smoker Stop: Losartan Potassium 25 MG Oral Tablet Tobacco Use Screening; Status:Complete; Done: [id number] Unlinked Stop: hydroCHLOROthiazide 25 MG Oral Tablet [...] emphasis on low-calorie diet Rene Castro MD, [facility] Surgical History Problems History of Coronary artery [...] No a (more content not included)... Normal [employer] Tobacco Screening.on Adult depression screening assessment No [facility] 250 DO Work Phone: Fall risk assessment a) No falls within the last year [facility] 250 DO Work Phone: Tobacco use status CP b) No [facility] 250 DO Work Phone: MRI Soft Tissue [...] by Ethan Walsh on 07/16/2022 1246 Normal [facility] [employer] MRI Brain w/o + w/on 023 MRI [...] by Sean Trejo on 07/01/2022 0911 Normal [facility] [employer] [place] [facility] KVNGDEMARCUS Garcia ([id number]) 1955 Date Time Provider Department 06/21/22 DEANDRA BENDER During your visit today, we recorded the following information about you: Delores Mccollum 06/21/2022 12:54 PM Signed [facility] called today. : 1955 Allergies: Codeine, Codeine-Guaifenesin, and [employer] (home) [phone] (cell) Reason for call: Sasha F:[phone] Asking for the MRI orders and office notes to be faxed over to [facility]. Patient will be having them done there. Patient last appointment: Visit date not found The patients preferred pharmacy has been captured for this encounter? not asked Delores Mccollum [place] [facility] [place] 2:03 PM Signed Notes and MRI [...] Of Date: 06/21/2022 (None) Encounter Status:Closed by ORQUIDEA SIBLEY on 06/21/22 Normal [facility] XR Ribs w/ PA Chest Left*on 03-13-2022 [...] by Ethan Walsh on 03/13/2022 1254 Normal [facility] [employer] XR Chest 2 Views*on 01-18-20 22 XR Chest 2 Views* COMPARISON: none TECHNIQUE: Upright PA and lateral views of the chest were obtained. FINDINGS: Heart is normal in size. Lungs are clear and well expanded. No pleural effusion or pneumothorax. The bony thorax is unremarkable. IMPRESSION: NO ACUTE CARDIOPULMONARY ABNORMALITY. Report reported and signed by AMALIA LOGAN on 01/17/2022 1243 Normal [facility] [employer] Tobacco Screening.on 022 Adult depression screening assessment No [facility] [employer]-Raina daniel 250 DO Work Phone: Fall risk assessment a) No falls within the last year [facility] Johnny daniel 250 DO Work Phone: Tobacco use status CPHS b) No [facility] daniel 250 DO Work Phone: CT Chest [...] by AMALIA LOGAN on 08/04/2021 1346 Normal [facility] [employer] Complete Blood Count with Au to Diffon 07-29-2021 Basophils (Bld) [#/Vol] 0.05 10*3/uL Normal 0.00-0.20 [facility] [employer] Comment on above: Performed By: #### C MP, CBCAD #### [facility] [address] [place], [place] [id number] Basophils/100 WBC (Bld) 0.8 % Normal [facility] [employer] Comment on above: Performed By: #### C MP, CBCAD #### [facility] [address] [place], [place] [id number] Eosinophils (Bld) [#/Vol] 0.46 10*3/uL Normal 0.02-0.50 [facility] [employer] Comment on above: Performed By: #### C MP, CBCAD #### [facility] [address] [place], [place] [id number] Eosinophils/100 WBC (Bld) 7.7 % Normal [facility] [employer] Comment on above: Performed By: #### C JOSE ANTONIO, CBCAD #### [facility] [address] [place], [place] [id number] Erythrocyte distribution width (RBC) [Ratio] 13.3 % Normal 11.0-15.0 [facility] [employer] Comment on above: Performed By: #### C MP, CBCAD #### [facility] [address] [place], [place] [id number] Hematocrit (Bld) [Volume fraction] 42.2 % Normal 38.5-50.0 [facility] [employer] Comment on above: Performed By: #### C MP, CBCAD #### [facility] [address] [place], [place] [id number] Hemoglobin (Bld) [Mass/Vol] 14.5 g/dL Normal 13.0-17.1 [facility] [employer] Comment on above: Performed By: #### C MP, CBCAD #### [facility] [address] [place], [place] [id number] Lymphocytes (Bld) [#/Vol] 1.6 10*3/uL Normal 0.9-3.9 [facility] [employer] Comment on above: Performed By: #### C MP, CBCAD #### [facility] [address] [place], [place] [id number] Lymphocytes/100 WBC (Bld) 26.1 % Normal [facility] Comment on above: Performed By: #### C MP, CBCAD #### [facility] [address] [place], [place] [id number] MCH (RBC) [Entitic mass] 29.7 pg Normal 27.0-33.0 [facility] Comment on above: Performed By: #### C MP, CBCAD #### [facility] [address] [place], [place] [id number] MCHC (RBC) [Mass/Vol] 34.4 g/dL Normal 32.0-36.0 [facility] Comment on above: Performed By: #### C MP, CBCAD #### [facility] [address] [place], [place] [id number] MCV (RBC) [Entitic vol] 86 fL Normal 80-100 [facility] Comment on above: Performed By: #### C MP, CBCAD #### [facility] [address] [place], [place] [id number] Monocytes (Bld) [#/Vol] 0.9 10*3/uL Normal 0.2-0.9 [facility] Comment on above: Performed By: #### C MP, CBCAD #### [facility] [address] [place], [place] [id number] Monocytes/100 WBC (Bld) 14.6 % Normal [facility] Comment on above: Performed By: #### C MP, CBCAD #### [facility] [address] [place], [place] [id number] Neutrophils (Bld) [#/Vol] 3.0 10*3/uL Normal 1.5-7.8 [facility] Comment on above: Performed By: #### C MP, CBCAD #### [facility] [address] [place], [place] [id number] Neutrophils/100 WBC (Bld) 50.5 % Normal [facility] Comment on above: Performed By: #### C MP, CBCAD #### [facility] [address] [place], [place] [id number] Platelet mean volume (Bld) [Entitic vol] 10.90 fL Normal 7.50-12.50 [facility] Comment on above: Performed By: #### C MP, CBCAD #### [facility] [address] [place], [place] [id number] Platelets (Bld) [#/Vol] 166 10*3/uL Normal 140-400 [facility] Comment on above: Performed By: #### C MP, CBCAD #### [facility] [address] [place], [place] [id number] RBC (Bld) [#/Vol] 4.89 10*6/uL Normal 4.20-5.80 [facility] Comment on above: Performed By: #### C MP, CBCAD #### [facility] [address] [place], [place] [id number] RDW-SD 41.2 fL Normal 37.0-50.0 [facility] Comment on above: Performed By: #### C MP, CBCAD #### [facility] [address] [place], [place] [id number] WBC (Bld) [#/Vol] 5.9 10*3/uL Normal 3.8-11.0 [facility] Comment on above: Performed By: #### C MP, CBCAD #### [facility] [address] [place], [place] [id number] Comprehensive Metabolic Pane [facility] 07-29-2021 Albumin [Mass/Vol] 4.6 g/dL Normal 3.6-5.1 [facility] [employer] Comment on above: Performed By: #### C MP, CBCAD #### [facility] [address] [place], [place] [id number] Albumin/Globulin [Mass ratio] 2.7 {ratio} High 1.0-2.5 [facility] Comment on above: Performed By: #### C MP, CBCAD #### [facility] [address] [place], [place] [id number] ALP [Catalytic activity/Vol] 74 U/L Normal 40-129 [facility] Comment on above: Performed By: #### C MP, CBCAD #### [facility] [address] [place], [place] [id number] ALT [Catalytic activity/Vol] 55 U/L High 9-46 [facility] Comment on above: Result Comment: 04/27 Female reference range changed. Performed By: #### C MP, CBCAD #### [facility] [address] [place], [place] [id number] Anion gap [Moles/Vol] 16 mmol/L Normal 12-20 [facility] Comment on above: Result Comment: Effe ctive 06/02/2019 reference range changed. Performed By: #### C MP, CBCAD #### [facility] [address] [place], [place] [id number] AST [Catalytic activity/Vol] 39 U/L Normal 10-40 [facility] Comment on above: Performed By: #### C MP, CBCAD #### [facility] [address] [place], [place] [id number] BUN/CREA 13 Ratio Normal 6-22 [facility] Comment on above: Performed By: #### C MP, CBCAD #### [facility] [address] [place], [place] [id number] Calcium [Mass/Vol] 9.0 mg/dL Normal 8.6-10.2 [facility] Comment on above: Performed By: #### C MP, CBCAD #### [facility] [address] [place], [place] [id number] Chloride [Moles/Vol] 107 mmol/L Normal 98-[address] [facility] Comment on above: Performed By: #### C MP, CBCAD #### [facility] [address] [place], [place] [id number] CO2 [Moles/Vol] 20 mmol/L Normal 20-31 [facility] Comment on above: Performed By: #### C MP, CBCAD #### [facility] [address] [place], [place] [id number] Creatinine [Mass/Vol] 1.0 mg/dL Normal 0.7-1.4 [facility] Comment on above: Performed By: #### C MP, CBCAD #### [facility] [address] [place], [place] [id number] eGFRAA 94 mL/min/1.73m2 Normal >60 [facility] Comment on above: Performed By: #### C MP, CBCAD #### [facility] [address] [place], [place] [id number] eGFRNAA 78 mL/min/1.73m2 Normal >60 [facility] Comment on above: Performed By: #### C MP, CBCAD #### [facility] [address] [place], [place] [id number] Globulin (S) [Mass/Vol] 1.7 g/dL Low 1.9-3.7 [facility] Comment on above: Performed By: #### C MP, CBCAD #### [facility] [address] [place], [place] [id number] Glucose [Mass/Vol] 121 mg/dL High 65-99 [facility] Comment on above: Result Comment: For FASTING Glucose --- ADA reference ranges: Normal 65-99 mg/dl Prediabetes 100-125 Diabetes >/= 126 Performed By: #### C JOSE ANTONIO, CBCAD #### [facility] [address] [place], [place] [id number] Potassium [Moles/Vol] 4.2 mmol/L Normal 3.5-5.5 [facility] Comment on above: Performed By: #### C JOSE ANTONIO, CBCAD #### [facility] [address] [place], [place] [id number] Protein [Mass/Vol] 6.3 g/dL Normal 6.1-8.1 [facility] Comment on above: Performed By: #### C JOSE ANTONIO, CBCAD #### [facility] [address] [place], [place] [id number] Sodium [Moles/Vol] 139 mmol/L Normal 135-146 [facility] [employer] Comment on above: Performed By: #### C JOSE ANTONIO, CBCAD #### [facility] [address] [place], [place] [id number] TBIL <0.3 Normal [facility] Comment on above: Performed By: #### C MP, CBCAD #### [facility] [address] [place], [place] [id number] Urea nitrogen [Mass/Vol] 12 mg/dL Normal 7-25 [facility] [employer] Comment on above: Performed By: #### C MP, CBCAD #### [facility] [address] [place], [place] [id number] Microalbumin (with Creat)on 07-29-2021 mALB <1.2 Low [facility] Comment on above: Result Comment: Unab le to calculate mALB/Crea ratio, mALB is <1.2 mg/dL mALB reference range not established. Performed By: #### m ALBC #### [facility] [address] [place], [place] [id number] UCREA 85 mg/dL Normal 39-259 [facility] Comment on above: Performed By: #### m ALBC #### [facility] [address] [place], [place] [id number] Prostatic Specific Antigen, Totalon 07-29-2021 TPSA 2.330 ng/mL Normal <4.000 [facility] Comment on above: Result Comment: PSA Test Method: ECLIA/Brandi e 601 Performed By: #### P SA #### [facility] [address] [place], [place] [id number] Q - URINALYSIS,COMPLETEon Appearance (U) CLEAR Normal CLEAR [facility] [employer] Comment on above: Order Comment: [facility] performed at: [facility], [address], [address] [place] [address], [id number], Fact Checker: Rafi Agustin MD [facility] Collection Date/Time: [facility] Results Received Date/Time: [facility] Reported Date/Time: Performed By: #### 3 4F #### [facility] [address] [place] [address] BACTERIA NONE SEEN Normal NONE SEEN [facility] [employer] Comment on above: Order Comment: [facility] performed at: [facility], [address] , [address] [place] [address], [id number], Fact Checker: Rafi Agustin MD [facility] Date/Time: [facility] Results Received Date/Time: [facility] Reported Date/Time: Performed By: #### 3 4F #### [facility] [address] [place] [address] Bilirubin Ql (U) Negative Normal NEGATIVE [facility] [employer] Comment on above: Order Comment: [facility] performed at: Q, [employer] [facility], [address] , [address] [place] [address], [address] [place] [address], Fact Checker: Rafi Agustin MD [facility] Date/Time: [facility] Results Received Date/Time: [facility] Reported Date/Time: Performed By: #### 3 4F #### [facility] [address] [place] [address] Color (U) YELLOW Normal YELLOW [facility] [employer] Comment on above: Order Comment: [facility] performed at: [facility] [employer] [facility], [address] , [address] [place] [address], [address] [place] [address], Fact Checker: Rafi Agustin MD [facility] Date/Time: [facility] Results Received Date/Time: [facility] Reported Date/Time: Performed By: #### 3 4F #### [facility] [address] [place] [address] Glucose Ql (U) Negative Normal NEGATIVE [facility] [employer] Comment on above: Order Comment: [facility] performed at: [facility], [employer] [facility], [address] , [address] [place] [address], [address] [place] [address], Fact Checker: Rafi Agustin MD [facility] Date/Time: [facility] Results Received Date/Time: [facility] Reported Date/Time: Performed By: #### 3 4F #### [facility] [address] [place] [address] HYALINE CAST NONE SEEN Normal NONE SEEN [facility] [employer] Comment on above: Order Comment: [facility] performed at: [employer], [employer] [facility], [address] [facility], [address] [place] [address], [address] [place] [address], Fact Checker: Rafi Agustin MD [facility] Date/Time: [facility] Results Received Date/Time: [facility] Reported Date/Time: Performed By: #### 3 4F #### [facility] [address] [place] [address] Ketones Ql (U) Negative Normal NEGATIVE [facility] [employer] Comment on above: Order Comment: [facility] performed at: [employer], [employer] [facility], [address] [facility], [address] [place] [address], [address] [place] [address], Fact Checker: Rafi Agustin MD [facility] Date/Time: [facility] Results Received Date/Time: [facility] Reported Date/Time: Performed By: #### 3 4F #### [facility] [address] [place] [address] Leukocyte esterase Test strip Ql (U) Negative Normal NEGATIVE [facility] Comment on above: Order Comment: [facility] performed at: [employer], [employer] [facility], [address] [facility], [address] [place] [address], [address] [place] [address], Fact Checker: Raif Agustin MD [facility] Date/Time: [facility] Results Received Date/Time: [facility] Reported Date/Time: Performed By: #### 3 4F #### [facility] [address] [place] [address] Nitrite Ql (U) Negative Normal NEGATIVE [facility] Comment on above: Order Comment: [facility] performed at: [place], [employer] [facility], [address] [facility], [address] [place] [address], [address] [place] [address], Fact Checker: Rafi Agustin MD [facility] Date/Time: [facility] Results Received Date/Time: [facility] Reported Date/Time: Performed By: #### 3 4F #### [facility] [address] [place] [address] OCCULT BLOOD Negative Normal NEGATIVE [facility] [employer] Comment on above: Order Comment: [facility] performed at: [facility], [employer] [facility], [address] [place] [address], [address] [place] [address], [address] [place] [address], Fact Checker: Rafi Agustin MD [facility] Date/Time: [facility] Results Received Date/Time: [facility] Reported Date/Time: Performed By: #### 3 4F #### [facility] [address] [place] [address] pH (U) 6.5 [pH] Normal 5.0-8.0 [facility] [employer] Comment on above: Order Comment: [facility] performed at: [place], [employer] [facility], [address] [facility], [address] [place] [address], [address] [place] [address], Fact Checker: Rafi Agustin MD [facility] Date/Time: [facility] Results Received Date/Time: [facility] Reported Date/Time: Performed By: #### 3 4F #### [facility] [address] [place] [address] Protein Ql (U) Negative Normal NEGATIVE [facility] [employer] Comment on above: Order Comment: [facility] performed at: [facility] [employer] [facility], [address] [facility], [address] [place] [address], [address] [place] [address], Fact Checker: Rafi Agustin MD [facility] Date/Time: [facility] Results Received Date/Time: [facility] Reported Date/Time: Performed By: #### 3 4F #### [facility] [address] [place] [address] RBC NONE SEEN Normal < OR = 2 [facility] [employer] Comment on above: Order Comment: [facility] performed at: [facility] [employer] [facility], [address] [facility], [address] [place] [address], [address] [place] [address], Fact Checker: Rafi Agustin MD [facility] Date/Time: [facility] Results Received Date/Time: [facility] Reported Date/Time: Performed By: #### 3 4F #### [facility] [address] [place] [address] Specific gravity (U) [Rel density] 1.012 Normal 1.001-1.035 [facility] [employer] Comment on above: Order Comment: [facility] performed at: [place], [employer] [facility], [address] [facility], [address] [place] [address], [address] [place] [address], Fact Checker: Rafi Agustin MD [facility] Date/Time: [facility] Results Received Date/Time: [facility] Reported Date/Time: Performed By: #### 3 4F #### [facility] [address] [place] [address] SQUAMOUS EPITHELIAL CELLS NONE SEEN Normal < OR = 5 [facility] [employer] Comment on above: Order Comment: [facility] performed at: [place], [employer] [facility], [address] [facility], [address] [place] [address], [address] [place] [address], Fact Checker: Rafi Agustin MD [facility] Date/Time: [facility] Results Received Date/Time: [facility] Reported Date/Time: Performed By: #### 3 4F #### [facility] [address] [place] [address] WBC NONE SEEN Normal < OR = 5 [facility] Comment on above: Order Comment: [facility] performed at: [place], [employer] [facility], [address] [facility], [address] [place] [address], [address] [place] [address], Fact Checker: Rafi Agustin MD [facility] Date/Time: [facility] Results Received Date/Time: [facility] Reported Date/Time: Performed By: #### 3 4F #### [facility] [address] [place] [address] No Panel Information [facility] Vital Signs Date Time Vital Sign Value Performing Clinician Facility 10-18-2023 09:25-0400 Body height 172.7 cm Rene Castro MD Work Phone: [facility] 10-18-2023 09:25-0400 Body mass index (BMI) [Ratio] 36.31 kg/m2 Rene Castro MD Work Phone: [facility] 10-18-2023 09:25-0400 Body weight 108.32 kg Rene Castro MD Work Phone: [facility] 10-18-2023 09:25-0400 Diastolic blood pressure 76 mm[Hg] Rene Castro MD Work Phone: [facility] 10-18-2023 09:25-0400 Heart rate 68 /min Rene Castro MD Work Phone: [facility] 10-18-2023 09:25-0400 Systolic blood pressure 120 mm[Hg] Rene Castro MD Work Phone: [facility] 06-30-2023 10:23-0500 Body mass index (BMI) [Ratio] 35.28 kg/m2 Hosea Sifuentes DO Work Phone: [facility] 06-30-2023 10:23-0500 Body temperature 97.81 [degF] Hosea Sifuentes DO Work Phone: [facility] 06-30-2023 10:23-0500 Body weight 105.23 kg Hosea Sifuentes DO Work Phone: [facility] 06-30-2023 10:23-0500 Diastolic blood pressure 82 mm[Hg] Hosea Sifuentes DO Work Phone: [facility] 06-30-2023 10:23-0500 Heart rate 86 /min Hosea Sifuentes DO Work Phone: [facility] 06-30-2023 10:23-0500 Respiratory rate 18 /min Hosea Sifuentes DO Work Phone: [facility] 06-30-2023 10:23-0500 SaO2% (BldA) [Mass fraction] 94 % Hosea Sifuentes DO Work Phone: [facility] 06-30-2023 10:23-0500 Systolic blood pressure 138 mm[Hg] Hsoea Sifuentes Work Phone: [facility] 06-14-2023 14:25-0500 Body temperature 97.7 [degF] MD Sera Flower Work Phone: [facility] 06-14-2023 14:25-0500 Diastolic blood pressure 74 mm[Hg] MD Sera Flower Work Phone: [facility] 06-14-2023 14:25-0500 Heart rate 78 /min MD Sera Flower Work Phone: [facility] 06-14-2023 14:25-0500 Respiratory rate 20 /min MD Sera Flower Work Phone: [facility] 06-14-2023 14:25-0500 SaO2% (BldA) [Mass fraction] 95 % MD Sera Flower Work Phone: [facility] 06-14-2023 14:25-0500 Systolic blood pressure 155 mm[Hg] MD Sera Flower Work Phone: [facility] 06-14-2023 11:48-0500 Body height 172.72 cm MD Sera Flower Work Phone: [facility] 06-14-2023 11:48-0500 Body weight 108.9 kg MD Sera Flower Work Phone: [facility] 03-23-2023 09:34-0400 Body height 172.7 cm Rene Castro MD Work Phone: [facility] 03-23-2023 09:34-0400 Body mass index (BMI) [Ratio] 35.12 kg/m2 Rene Castro MD Work Phone: [facility] 03-23-2023 09:34-0400 Body weight 104.78 kg Rene Castro MD Work Phone: [facility] 03-23-2023 09:34-0400 Diastolic blood pressure 72 mm[Hg] Rene Castro MD Work Phone: [facility] 03-23-2023 09:34-0400 Heart rate 60 /min Rene Castro MD Work Phone: [facility] 03-23-2023 09:34-0400 Systolic blood pressure 128 mm[Hg] Rene Castro MD Work Phone: [facility] 09-07-2022 11:31-0400 Body height 172.72 cm Sera Flower Work Phone: [facility]Zplohdhyrn-Eegyg daniel 250 DO Work Phone: 09-07-2022 11:31-0400 Body mass index (BMI) [Ratio] 36.8 kg/m2 Sera Flower Work Phone: KO-Jilfxzstlc-Fgcca daniel 250 DO Work Phone: 09-07-2022 11:31-0400 Body surface area Derived from formula 2.22 m2 Sera Flower Work Phone: MU-Vprvsvlpke-Qfkpb daniel 250 DO Work Phone: 09-07-2022 11:31-0400 Body weight 109.77 kg Sera Floewr Work Phone: XS-Srfczfnwjd-Vspjg daniel 250 DO Work Phone: 09-07-2022 11:31-0400 Diastolic blood pressure 68 mm[Hg] Sera Flower Work Phone: TC-Kjhurrqnhe-Qqtup daniel 250 DO Work Phone: 09-07-2022 11:31-0400 Heart rate 76 /min Sera Flower Work Phone: ZN-Ffjeeggguq-Owtyu daniel 250 DO Work Phone: 09-07-2022 11:31-0400 Systolic blood pressure 124 mm[Hg] Sera Flower Work Phone: TB-Jklkxujcjp-Uyebc daniel 250 DO Work Phone: 09-05-2021 14:04-0400 Body height 172.72 cm Sera Flower Work Phone: [facility] 250 DO Work Phone: 09-05-2021 14:04-0400 Body mass index (BMI) [Ratio] 36.49 kg/m2 Sera Flower Work Phone: [facility] 250 DO Work Phone: 09-05-2021 14:04-0400 Body surface area Derived from formula 2.21 m2 Sera Flower Work Phone: [facility] 250 DO Work Phone: 09-05-2021 14:04-0400 Body weight 108.86 kg Sera Flower Work Phone: [facility] 250 DO Work Phone: 09-05-2021 14:04-0400 Diastolic blood pressure 82 mm[Hg] Sera Flower Work Phone: [facility] 250 DO Work Phone: 09-05-2021 14:04-0400 Heart rate 70 /min Sera Flower Work Phone: [facility] 250 DO Work Phone: 09-05-2021 14:04-0400 Systolic blood pressure 132 mm[Hg] Sera Flower Work Phone: [facility] 250 DO Work Phone: Encounters Encounter Date Encounter Type Care Provider Facility Start: 10-18-2023 End: 10-18-[address] [facility] Ambulatory Start: 10-18-2023 End: 10-18-2023 Office outpatient visit 25 minutes Rene Castro MD Work Phone: [facility] Comment on above: Coronary artery dise ase involving quartz valley coronary artery of quartz valley heart without angina pectoris (Primary Dx); Essential hypertension; Mixed hyperlipidemia; Ischemic cardiomyopathy; Status post coronary artery stent placement; Class 2 obesity with body mass index (BMI) of 35.0 to 35.9 in adult, unspecified obesity type, unspecified whether serious comorbidity present; Former smoker Start: 09-20-2023 End: 09-20-2023 ambulatory SERA FLOWER Not Available Start: 07-30-2023 End: 07-30-2023 ambulatory SERA FLOWER Not Available Start: 06-30-2023 End: 06-30-2023 ambulatory HOSEA SIFUENTES Not Available Start: 06-30-2023 End: 06-30-2023 Office outpatient visit 25 minutes Hosea Sifuentes DO Work Phone: [facility] Comment on above: Acute exacerbation o f chronic obstructive pulmonary disease (CMS/HCC) (Primary Dx) Start: 06-27-2023 End: 06-27-2023 ambulatory SERA FLOWER Not Available Start: 06-14-2023 End: 06-14-2023 Emergency department patient visit Jasper Martinez Facility:[facility] Start: 06-14-2023 End: 06-14-2023 ambulatory RENZO WEAVER Not Available Start: 06-14-2023 End: 06-14-2023 Emergency department patient visit MD Sera Flower Work Phone: [facility] Work Phone: Start: 05-19-2023 End: 05-19-2023 ambulatory BRITTANY FIGUEROA Not Available Start: 03-23-2023 End: 03-23-2023 ambulatory RENE Porter [facility] Ambulatory Start: 03-23-2023 End: 03-23-2023 Office outpatient visit 25 minutes Rene Castro MD Work Phone: [facility] Comment on above: Coronary artery dise ase involving quartz valley coronary artery of quartz valley heart without angina pectoris; Essential hypertension; Mixed hyperlipidemia; Ischemic cardiomyopathy; Status post coronary artery stent placement; Class 2 obesity with body mass index (BMI) of 35.0 to 35.9 in adult, unspecified obesity type, unspecified whether serious comorbidity present Start: 02-06-2023 Other Sera Flower Work Phone: [facility] 250 DO Work Phone: Start: 02-05-2023 End: 02-05-2023 ambulatory Rene Castro Facility:[facility] Start: 02-05-2023 End: 02-05-2023 ambulatory MD Sera Flower Work Phone: [facility] Work Phone: Start: 02-05-2023 End: 02-05-2023 Patient encounter procedure MD Sera Flower Work Phone: [facility] Work Phone: Start: 02-05-[address] Sera Flower Facility:[id number] Start: 01-30-2023 AUDIT Sera Flower Work Phone: [facility] 600 DO Work Phone: Start: 01-15-2023 Other Sera Flower Work Phone: [facility] 250 DO Work Phone: Start: 01-12-2023 Chart Update Sera Flower Work Phone: [facility] 250 DO Work Phone: Start: 01-04-[address] Sera Flower Facility:[id number] Start: 01-03-[address] Sera Flower Facility:[id number] Start: 11-14-2022 End: 11-14-2022 ambulatory DEANDRA BENDER Facility:[facility] Start: 11-14-2022 End: 11-14-2022 Patient encounter procedure Deandra Bender MD Work Phone: Ophthalmology Comment on above: Clonic hemifacial sp asm, right (Primary Dx) Start: 09-07-2022 Office outpatient vi sit 25 minutes Sera Flower Work Phone: [facility] 250 DO Work Phone: Start: 09-07-2022 ambulatory Rene Castro Facility : Start: 08-08-2022 End: 08-08-2022 ambulatory DEANDRA BENDER Facility:[facility] Start: 08-08-2022 End: 08-08-2022 Patient encounter procedure Deandra Bender MD Work Phone: Ophthalmology Comment on above: Clonic hemifacial sp asm, right (Primary Dx) Start: 06-21-2022 Telephone encounter Deandra Bender MD Work Phone: Internal Medicine [facility] Comment on above: Orders Start: 06-21-2022 End: 06-21-2022 ambulatory DEANDRA BENDER Facility:[facility] Start: 06-21-2022 End: 06-21-2022 Patient encounter procedure Deandra Bender MD Work Phone: Ophthalmology Comment on above: Clonic hemifacial sp asm, right (Primary Dx); Paralytic strabismus; Jada's syndrome Start: 05-01-2022 End: 05-01-2022 ambulatory MAU RANDLE Facility:[facility] Start: 05-01-2022 End: 05-01-2022 Patient encounter procedure Mau Randle OD Work Phone: Ophthalmology Comment on above: Eyelid myokymia (Velma maren Dx); Dry eye syndrome of both eyes; Hyperopia of both eyes with astigmatism and presbyopia Start: 09-05-2021 Office outpatient vi sit 25 minutes Sera Flower Work Phone: [facility] 250 DO Work Phone: Procedures Date Procedure Procedure Detail Performing Clinician Start: 09-14-2023 Lipid 1996 panel - Serum or Plasma Rene Castro MD Work Phone: Start: 06-14-2023 SARS-CoV-2, Influenza & RSV (PCR) [...] Castro MD Work Phone: Start: 11-14-2022 [facility] innervated facial nrv unil Deandra Bender MD Work Phone: Start: 08-08-2022 [facility] innervated facial nrv unil Evelia Huffman APRN.SWIMMER Work Phone: Start: 07-28-2019 Colonoscopy Hosea Sifuentes DO Work Phone: History of placement of stent for coronary artery disease Status post coronary artery stent placement Sera Flower Work Phone: History of placement of stent for coronary artery disease Status post coronary artery stent placement Rene Castro MD Work Phone: History of placement of stent [...] 07-27-2029 Screening for malignant neoplasm of colon [facility] Start: 09-13-2028 Lipid panel Lipid Panel [facility] Start: 08-11-2027 DTaP/Tdap/Td Vaccines (2 - Td or Tdap) DTaP/Tdap/Td Vaccines (2 - Td or Tdap) [facility] Start: 05-15-2024 End: 05-15-2024 Patient encounter procedure 05/15/2024 9:10 AM EST Office Visit [facility] [address] [place] [address] Rene Castro MD [address] [place] [address] [facility] Start: 03-20-2024 Echocardiography Echocardiogram [facility] Start: 01-27-2024 Influenza vaccination Influenza Vaccine (Season Ended) [facility] Start: 10-18-2023 End: 10-18-2023 Patient encounter procedure 10/18/2023 9:30 AM EDT Office Visit [facility] [address] [place] [address] Rene Castro MD [address] [place] [address] [facility] Start: 09-20-2023 End: 09-20-2023 Patient encounter procedure 09/20/2023 1:00 PM EDT Office Visit [facility] [address] [place] [id number] Sera Flower MD [address] [place] [address] [facility] Start: 03-23-2023 End: 03-23-2024 Alanine aminotransferase [Enzymatic activity/volume] in Serum or Plasma by With P-5'-P Alanine Aminotransferase Lab Routine Coronary artery disease involving quartz valley coronary artery of quartz [place] heart without angina pectoris Essential hypertension Mixed hyperlipidemia Ischemic cardiomyopathy Status post coronary artery stent placement Class 2 obesity with body mass index (BMI) of 35.0 to 35.9 in adult, unspecified obesity type, unspecified whether serious comorbidity present Expected: 03/23/2023 (Approximate), Expires: 03/23/2024 [facility] Work Phone: Comment on above: Expected: 03/23/2023 (Approximate), Expi res: 03/23/2024 Start: 03-23-2023 End: 03-23-2024 Aspartate aminotransferase [Enzymatic activity/volume] in Serum or Plasma by With P-5'-P Aspartate Aminotransferase Lab Routine Coronary artery disease involving quartz [place] coronary artery of quartz [place] heart without angina pectoris Essential hypertension Mixed hyperlipidemia Ischemic cardiomyopathy Status post coronary artery stent placement Class 2 obesity with body mass index (BMI) of 35.0 to 35.9 in adult, unspecified obesity type, unspecified whether serious comorbidity present Expected: 03/23/2023 (Approximate), Expires: 03/23/2024 [facility] Work Phone: Comment on above: Expected: 03/23/2023 (Approximate), Expi res: 03/23/2024 Start: 03-23-2023 End: 03-23-2024 Basic metabolic 2000 panel - Serum or Plasma Basic Metabolic Panel Lab Routine Coronary artery disease involving quartz [place] coronary artery of [place] heart without angina pectoris Essential hypertension Mixed hyperlipidemia Ischemic cardiomyopathy Status post coronary artery stent placement Class 2 obesity with body mass index (BMI) of 35.0 to 35.9 in adult, unspecified obesity type, unspecified whether serious comorbidity present Expected: 03/23/2023 (Approximate), Expires: 03/23/2024 [facility] Work Phone: Comment on above: Expected: 03/23/2023 (Approximate), Expi res: 03/23/2024 Start: 03-23-2023 End: 03-23-2024 CBC panel - Blood by Automated count CBC Lab Routine Coronary artery disease involving quartz [place] coronary artery of [place] heart without angina pectoris Essential hypertension Mixed hyperlipidemia Ischemic cardiomyopathy Status post coronary artery stent placement Class 2 obesity with body mass index (BMI) of 35.0 to 35.9 in adult, unspecified obesity type, unspecified whether serious comorbidity present Expected: 03/23/2023 (Approximate), Expires: 03/23/2024 [facility] Service Area Work Phone: Comment on above: Expected: 03/23/2023 (Approximate), Expi res: 03/23/2024 Start: 03-23-2023 End: 03-23-2024 Lipid 1996 panel - Serum or Plasma Lipid Panel Lab Routine Coronary artery disease involving quartz [place] coronary artery of [place] heart without angina pectoris Essential hypertension Mixed hyperlipidemia Ischemic cardiomyopathy Status post coronary artery stent placement Class 2 obesity with body mass index (BMI) of 35.0 to 35.9 in adult, unspecified obesity type, unspecified whether serious comorbidity present Expected: 03/23/2023 (Approximate), Expires: 03/23/2024 [facility] Work Phone: Comment on above: Expected: 03/23/2023 (Approximate), Expi res: 03/23/2024 Start: 03-15-2023 FUV, Provider: Rene Castro, Status: Pen, Time: 9:20 AM FUV, Provider: Rene Castro, Status: Pen, Time: 9:20 AM [facility] daniel 250 DO Work Phone: Start: 01-26-2023 COVID-19 Vaccine ( season) COVID-19 Vaccine () [facility] Start: 01-26-2023 Influenza vaccination [facility] Start: 09-07-2022 FUV, Provider: Rene Castro, Status: Pen, Time: 8:30 AM FUV, Provider: Rene Castro, Status: Pen, Time: 8:30 AM [facility] 250 DO Work Phone: Start: 05-28-2022 ADVANCE DIRECTIVE DISCUSSION ADVANCE DIRECTIVE DISCUSSION [facility] Start: 05-28-2022 DEPRESSION ASSESSMENT DEPRESSION ASSESSMENT [facility] Start: 01-26-2022 Influenza vaccination INFLUENZA (#1) [facility] Start: 05-28-2021 ADVANCE DIRECTIVE DISCUSSION ADVANCE DIRECTIVE DISCUSSION [facility] Start: 05-28-2021 DEPRESSION ASSESSMENT DEPRESSION ASSESSMENT [facility] Start: 2018 Abdominal aortic aneurysm screening Abdominal Aortic Aneurysm (AAA) Screening [facility] Start: 2018 PNEUMOCOCCAL: 65+ (1 - PCV) PNEUMOCOCCAL: 65+ (1 - PCV) [facility] Start: 02-15-2017 Zoster Vaccines (2 of 3) Zoster Vaccines (2 of 3) [facility] Start: 2013 RSV patients and/or patients aged 60+ years (1 - 1-dose 60+ series) RSV patients and/or patients aged 60+ years (1 - 1-dose 60+ series) [facility] Start: 2003 SHINGRIX VACCINE (1 of 2) SHINGRIX VACCINE (1 of 2) [facility] Start: 1998 COLOGUARD (FIT-DNA) COLOGUARD (FIT-DNA) [facility] Start: 1998 Colonoscopy COLONOSCOPY [facility] Start: 1998 COLORECTAL CANCER SCREENING COLORECTAL CANCER SCREENING [facility] Start: [address] COLONOGRAPHY [facility] Start: 1998 DIABETES SCREEN DIABETES SCREEN [facility] Start: 1998 FECAL OCCULT BLOOD FECAL OCCULT BLOOD [facility] Start: 1998 SIGMOIDOSCOPY SIGMOIDOSCOPY [facility] Start: 01-02-1988 LIPID SCREEN LIPID SCREEN [facility] Start: 01-02-1972 Urine microalbumin profile DTAP,TDAP,TD (1 - Tdap) [facility] Start: 1971 Diabetes mellitus screening Diabetes Screening [facility] Start: 1971 HEPATITIS C SCREENING HEPATITIS C SCREENING [facility] Start: 1971 Hepatitis C screening Hepatitis C Screening [facility] Start: 1953 COVID-19 VACCINE (#1) COVID-19 VACCINE (#1) [facility] Start: 1953 Creatinine measurement Creatinine Level [facility] Start: 1953 Lipid panel Lipid Panel [facility] Start: 1953 Medicare Annual Wellness Visit Medicare Annual Wellness Visit (AWV) [facility] Start: 1953 Potassium measurement Potassium Level [facility] Start: 1953 Screening for malignant neoplasm of colon [facility] End: 07-21-2023 Mri brain brain stem w/o w/contrast material MRI BRAIN WO/W IVCON Radiology Routine Paralytic strabismus 1 Occurrences starting 06/21/2022 until 07/21/2023 [facility] Work Phone: Comment on above: 1 Occurrences starting 06/21/2022 until 07/21/2023 End: 07-21-2023 Mri orbit face & neck w/o & w/contrast matrl MRI SOFT TISSUE NECK WO/W IVCON Radiology Routine 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 until 07/21/2023 [facility] Work Phone: Comment on above: 1 Occurrences starting 06/21/2022 until 07/21/2023 Patient Education COPD Exacerbat ion, Adult ED [facility] Work Phone: Patient referral [facility] Work Phone: [facility] Immunizations Immunization Date Immunization Notes Care Provider Fa loraine 04-16-2019 Seasonal trivalent influenza vaccine, adjuvanted, preservative free Sera Flower Work Phone: [place] [address] DO Work Phone: 04-16-2019 influenza virus vacc ine, unspecified formulation Rene Castro MD Work Phone: [facility] Work Phone: 03-28-2019 influenza virus vacc ine, unspecified formulation Sera Flower Work Phone: [place] [address] DO Work Phone: 08-16-2018 influenza, seasonal, injectable, preservative free Sera Flower Work Phone: [place] [address] DO Work Phone: 08-16-2018 pneumococcal conjuga te vaccine, 13 valent Sera Flower Work Phone: [place] [address] DO Work Phone: 05-28-2018 pneumococcal polysaccharide vaccine, 23 valent Sera Flower Work Phone: [place] [address] DO Work Phone: 08-10-2017 tetanus toxoid, redu daniel diphtheria toxoid, and acellular pertussis vaccine, adsorbed Sera Flower Work Phone: [place] [address] DO Work Phone: 12-21-2016 zoster vaccine, live Sera Flower Work Phone: [place] [address] DO Work Phone: 09-30-2012 pneumococcal polysaccharide vaccine, 23 valent Sera Flower Work Phone: [place] [address] DO Work Phone: 09-30-2012 pneumococcal vaccine , unspecified formulation Hosea Sifuentes DO Work Phone: [facility] 05-28-2010 influenza virus vacc ine, unspecified formulation Rene Castro MD Work Phone: [facility] Work Phone: 03-28-2010 influenza, seasonal, injectable, preservative free Rene Castro MD Work Phone: [facility] Work Phone: 2007 TD(adult) unspecifie d formulation Hosea Sifuentes DO Work Phone: [facility] influenza virus vacc ine, unspecified formulation Sera Flower Work Phone: [place] [address] DO Work Phone: Comment on above: Mar 20102010 Payers Date Payer Category Payer Private Health Insurance HUMANA HUMANA HMO/POS [id number] 2023-Present [address] [address] [place] [address] [id number] 2023 Self-pay [id number] 2022 [employer] ( and others) [id number] 2022 [employer] ( and others) [id number] 2022 Medicare [id number] 2021 [employer] ([facility] [place] and others) [id number] 2021 Unknown 2017 Medicare [id number] 2017 Medicare [id number] 1953 Unknown [id number]. 356 1953 Unknown [id number] [id number]. 356 1953 Unknown [id number] [id number]. 1068 1953 Unknown [id number] [id number]. 1068 1953 Unknown [id number] [id number]. 1259 1953 Unknown [id number] 2.16.840.1.380807.3.579.2. 1259 1953 Unknown [id number] [id number]. 1259 1953 Unknown [id number] [id number]. 1259 1953 Unknown [id number] [id number]. 1259 1953 Unknown [id number] [id number]. 1259 1953 Unknown [id number] [id number]. 1244 1953 Unknown [id number] [id number]. 1244 [employer] ( and others) [id number] Unknown [id number] 531 Unknown [id number]. 531 Social History Date Type Detail Facility Start: 03-23-2023 End: 10-18-2023 No alcohol use No alcohol use [facility] 250 DO Work Phone: Comment on above: 5 CUPS OF COFFEE ANICETO LY; QUIT IN 1984; Start: 05-01-2022 End: 06-14-2023 Tobacco smoking status [facility] Never smoked tobacco [facility] Start: 05-01-2022 End: 10-18-2023 Tobacco use and exposure Smokeless tobacco non-user [facility] Start: 05-01-2022 End: 11-14-2022 Alcohol intake Ex-drinker (finding) [facility] Start: 1955 Sex Assigned At Not on file C [facility] Start: 10-15-2020 End: 10-18-2023 Tobacco smoking status [facility] Ex-smoker (finding) [facility] Start: 1955 Sex Assigned At Male F [facility] End: 05-28-1992 History of tobacco use Current smoker [facility] Work Phone: End: 05-28-1992 History of tobacco use Cigarette Smoker [facility] Work Phone: Start: 03-23-2023 End: 10-18-2023 Alcohol intake Lifetime non-drinker (finding) [facility] Work Phone: Start: 03-23-2023 End: 10-18-2023 Tobacco use panel [facility] Work Phone: Start: 03-13-2023 End: 10-18-2023 Exposure to SARS-CoV-2 (event) Not sure [facility] Start: 03-14-2023 Alcohol Comment caffeine: coff ee 5-6 cups a day [facility] Start: 11-13-2022 Gender identity Identifies as male gender (finding) [facility] Clinical Notes 05-01-2022 to 10-18-2023 Rene Castro MD - 10/18/2023 9:30 AM EDTPatient InstructionsHosea Jose ClaudioDO - 06/30/2023 10:05 AM Cassandra Castro MD - 03/23/2023 9:40 AM EDTPatient InstructionsPatient Instructions Note Date & Type Note Facility 10-18-2023 History of Presen t illness Narrative Subjective Demarcus Panchal is a 68 y.o. male Chief Complaint Follow-up HPI Patient is in the office for follow-up for the problems noted below. He has had no cardiac events since he was last seen. Denies any angina or dyspnea. He retired few weeks ago and he continues to follow with the MD. Recent lab data from the MD were provided and reviewed with him. LDL cholesterol remains way above target over 100 mg/dL. He is taking atorvastatin 40 mg daily and I suggested going to rosuvastatin 40 mg daily and if necessary add ezetimibe down the road. Recent A1c was just over 6, kidney function is normal. His weight is unchanged from previously and remains in class II obesity. His cardiac and pulmonary and vascular examinations were normal. His symptoms no side effect of current medical regimen. ASSESSMENT AND PLAN: 1. Coronary artery disease, stable. Currently on guideline directed medical therapy for chronic ischemic heart disease which has been well-tolerated last nuclear stress test 2022 reveals no ischemia, he has no angina pectoris. Sublingual nitroglycerin was provided 2. Status post angioplasty with bare-metal stent to the right coronary artery and drug-eluting stent to the anterior descending artery in 2009. 3. Essential hypertension, under control, no changes are needed 4. Hyperlipidemia, LDL cholesterol is not on target on atorvastatin, he will be switched to rosuvastatin 40 mg daily. 5. Asymptomatic ischemic cardiomyopathy, stage C functional class II NYHA last ejection fraction from 2022 45% by echo, continue current therapy 6. Class II obesity provided patients with advice on the measures to bring his BMI down with emphasis on low-calorie diet Rene Castro MD, FACC Review of Systems All other systems reviewed and are negative. Vitals: 10/18/23 0925 BP: 120/76 BP Location: Left arm Patient Position: Sitting Pulse: 68 Weight: 108 kg (238 lb 12.8 oz) Height: 1.727 m (5' 8 ) Objective Physical Exam Constitutional: Appearance: Normal appearance. HENT: Nose: Nose normal. Neck: Vascular: No carotid bruit. Cardiovascular: Rate and Rhythm: Normal rate. Pulses: Normal pulses. Heart sounds: Normal heart sounds. Pulmonary: Effort: Pulmonary effort is normal. Abdominal: General: Bowel sounds are normal. Palpations: Abdomen is soft. Musculoskeletal: General: Normal range of motion. Cervical back: Normal range of motion. Right lower leg: No edema. Left lower leg: No edema. Skin: General: Skin is warm and dry. Neurological: General: No focal deficit present. Mental Status: He is alert. Psychiatric: Mood and Affect: Mood normal. Behavior: Behavior normal. Thought Content: Thought content normal. Judgment: Judgment normal. Allergies Codeine Current Medications Current Outpatient Medications: aspirin 81 [...] once daily., Disp: , Rfl: losartan (Cozaar) 50 mg tablet, TAKE 1 TABLET DAILY (NEW DOSE), Disp: 90 tablet, Rfl: 3 magnesium oxide (Mag-Ox) 250 mg magnesium tablet, Take 1 tablet (250 mg) by mouth once daily., Disp: , Rfl: multivitamin (MULTIPLE VITAMINS ORAL), 1 tablet once daily., Disp: , Rfl: omega-3 fatty acids-fish oil (One-Per-Day [place]-3) 684-1,200 mg capsule, Take as directed, Disp: [...] by mouth once daily., Disp: , Rfl: rosuvastatin (Crestor) 40 mg tablet, Take 1 tablet (40 mg) by mouth once daily., Disp: 90 tablet, Rfl: 3 Assessment/Plan 1. Coronary artery disease involving quartz [place] coronary artery of [place] heart without angina pectoris Follow Up In Cardiology rosuvastatin (Crestor) 40 mg tablet Follow Up In Cardiology 2. Essential hypertension Follow Up In Cardiology 3. Mixed hyperlipidemia Follow Up In Cardiology rosuvastatin (Crestor) 40 mg tablet 4. Ischemic cardiomyopathy Follow Up In Cardiology 5. Status post coronary artery stent placement Follow Up In Cardiology 6. Class 2 obesity with body mass index (BMI) of 35.0 to 35.9 in adult, unspecified obesity type, unspecified whether serious comorbidity present Follow Up In Cardiology 7. Former smoker Scribe Attestation By signing my name below, I, Ana Jimenez LPN, Scribe attest that this documentation has been prepared under the direction and in the presence of Rene Castro MD. Provider Attestation - Scribe documentation All medical record entries made by the Scribe were at my direction and personally dictated by me. I have reviewed the chart and agree that the record accurately reflects my personal performance of the history, physical exam, discussion and plan. documented in this encounter [facility] Work Phone: 10-18-2023 Instructions Ana Cunningham LPN - 10/18/2023 9:30 AM EDT Please bring all medicines, vitamins, and herbal supplements with you when you come to the office. Prescriptions will not be filled unless you are compliant with your follow up appointments or have a follow up appointment scheduled as per instruction of your physician. Refills should be requested at the time of your visit. BMI was above normal measurement. Current weight: 108 kg (238 lb 12.8 oz) Weight change since last visit (-) denotes wt loss 7.8 lbs Weight loss needed to achieve BMI 25: 74.7 Lbs Weight loss needed to achieve BMI 30: 41.9 Lbs Provided instructions on dietary changes. Stop Lipitor Start [facility] Follow [facility] 6 months documented in this encounter [facility] Work Phone: 06-30-2023 History of Presen t illness Narrative [...] x 3 days documented in this encounter [facility] 03-23-2023 History of Presen t illness Narrative [...] emphasis on low-calorie diet Rene Castro MD, [facility] Review of Systems All other systems reviewed [...] , Rfl: omega-3 fatty acids-fish oil (One-Per-Day [place]-3) 684-1,200 mg capsule, Take as directed, Disp: [...] Rfl: Assessment/Plan 1. Coronary artery disease involving quartz [place] coronary artery of quartz [place] heart without angina pectoris Follow Up In [...] Aminotransferase Alanine Aminotransferase documented in this encounter [facility] Work Phone: 03-23-2023 Instructions Millie Hoffmann CMA [...] of your visit. documented in this encounter [facility] Work Phone: 11-14-2022 Note HNO ID: [id number] Author: Deandra Bender MD Service: ? Author [...] or facial palsy H/o Botox injections in [place]-->didn't help No h/o trauma H/o sinus surgery [...] can I get the FL-41 filter? Any [facility] location, (with an optical shop), throughout [place], Email: [email or web address] in [place], [place], [facility] in [place], [place], [facility] in [place], [place], [facility] in [place], [place], [email or web address] [employer] F/u Botulinum toxin 3 months, Botulinum toxin [...] Bender MD, November 14, 2022 10:00 AM. [facility] 11-14-2022 History of Presen t illness Narrative Here for botox Right eye just started twitching Tears as needed. -rofPatient still having twitching right eye and occasionally the left. Refresh tears four times a day. -rof A/P: Right hemifacial spasm x 2 years Patient doesn't remember h/o bells or facial palsy H/o Botox injections in [place]-->didn't help No h/o trauma H/o sinus surgery [...] can I get the FL-41 filter? Any [facility] location, (with an optical shop), throughout [place], Email: [email or web address] in [place], [place], [facility] in [place], [place], [facility] in [place], [place], [facility] in [place], [place], [phone] www.[email or web address] [employer] F/u Botulinum toxin 3 months, Botulinum toxin [...] 2022 10:00 AM. documented in this encounter [facility] 08-08-2022 Note HNO ID: [id number] Author: Deandra Bender MD Service: ? Author Type: Physician Type: Progress Notes Filed: 08/08/2022 3:09 PM Note Text: Patient still having twitching right eye and occasionally the left. Refresh tears four times a day. -rof A/P: Right hemifacial spasm x 2 years Patient doesn't remember h/o bells or facial palsy H/o Botox injections in [place]-->didn't help No h/o trauma H/o sinus surgery [...] Bender MD, August 08, 2022 3:05 PM. [facility] 08-08-2022 History of Presen t illness Narrative Patient still having twitching right eye and occasionally the left. Refresh tears four times a day. -rof A/P: Right hemifacial spasm x 2 years Patient doesn't remember h/o bells or facial palsy H/o Botox injections in [place]-->didn't help No h/o trauma H/o sinus surgery [...] 2022 3:05 PM. documented in this encounter [facility] 08-08-2022 Instructions Deandra Bender MD - 08/08/2022 [...] Recheck next visit documented in this encounter [facility] 06-21-2022 Miscellaneous Notes Notes and MRI orders faxed to [facility]. [facility] today. : 1955 Allergies: Codeine, Codeine-Guaifenesin, and Guaifenesin (home) [phone] (cell) Reason for call: Sasha F:[phone] Asking for the MRI orders and office notes to be faxed over to [facility]. Patient will be having them done there. Patient last appointment: Visit date not found The patients preferred pharmacy has been captured for this encounter? not asked Delores Mccollum documented in this encounter [facility] 06-21-2022 Note HNO ID: [id number] Author: Deandra Bender MD Service: ? Author Type: Physician Type: Progress Notes Filed: 06/21/2022 9:08 AM Note Text: Twitching right eye x two years. Both upper and lower lid. Trouble reading because of it. +tearing and burning. Refresh four times a day. -rof A/P: Right hemifacial spasm x 2 years Patient doesn't remember h/o bells or facial palsy H/o Botox injections in [place]-->didn't help No h/o trauma H/o sinus surgery [...] Bender MD, June 21, 2022 9:05 AM. [facility] 06-21-2022 Instructions Deandra Bender MD - 06/21/2022 [...] and get MRI documented in this encounter [facility] 06-21-2022 History of Presen t illness Narrative Twitching right eye x two years. Both upper and lower lid. Trouble reading because of it. +tearing and burning. Refresh four times a day. -rof A/P: Right hemifacial spasm x 2 years Patient doesn't remember h/o bells or facial palsy H/o Botox injections in [place]-->didn't help No h/o trauma H/o sinus surgery [...] 2022 9:05 AM. documented in this encounter [facility] 05-01-2022 Note HNO ID: [id number] Author: Mau Randle OD Service: ? Author Type: OPERATOR TECHNICIAN Type: Progress Notes Filed: 05/01/2022 9:22 AM [...] doing anything up close - N/a w/ Dr/ Bender 2. Dry eye syndrome of both [...] all of its relevant components. Mau Randle, OD [facility] 05-01-2022 History of Presen t illness Narrative [...] doing anything up close - N/a w/ Dr/ Bender 2. 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 [facility] Diagnosis Clonic hemifacial spasm, right- Primary [facility]* Diagnosis Clonic hemifacial spasm, right- Primary [facility] noteNo assessment information [facility] Work Phone: Evaluation note* Diagnosis Coronary artery disease involving [place] coronary artery of [place] heart without angina pectoris Essential hypertension Unspecified essential hypertension Mixed hyperlipidemia Ischemic cardiomyopathy Other specified forms of chronic ischemic heart disease Status post coronary artery stent placement Postsurgical percutaneous transluminal coronary angioplasty status Class 2 obesity with body mass index (BMI) of 35.0 to 35.9 in adult, unspecified obesity type, unspecified whether serious comorbidity present documented in this encounter [facility] Work Phone: Evaluation note* Diagnosis Acute exacerbation of chronic obstructive pulmonary disease (CMS/HCC)- Primary Obstructive chronic bronchitis with exacerbation [facility] Coronary artery disease involving [place] coronary artery of [place] heart without angina pectoris- Primary Essential hypertension Unspecified essential hypertension Mixed hyperlipidemia Ischemic cardiomyopathy Other specified forms of chronic ischemic heart disease Status post coronary artery stent placement Postsurgical percutaneous transluminal coronary angioplasty status Class 2 obesity with body mass index (BMI) of 35.0 to 35.9 in adult, unspecified obesity type, unspecified whether serious comorbidity present Former smoker Personal history of tobacco use, presenting hazards to health documented in this encounter [facility] Work Phone: Hospital Discharge instructions Additional Instructions If your symptoms return/worsen or you develop any further concerns or symptoms please see your doctor or return to the emergency department immediately.[facility] Work Phone: Reason for referral (narrative)* Consultation (Routine) - Authorized Specialty Diagnoses / Procedures Referred By Contac t Referred To Contact Cardiology Diagnoses Coronary artery disease involving [place] coronary artery of [place] heart without angina pectoris Essential hypertension Mixed hyperlipidemia Ischemic cardiomyopathy Status post coronary artery stent placement Class 2 obesity with body mass index (BMI) of 35.0 to 35.9 in adult, unspecified obesity type, unspecified whether serious comorbidity present Procedures Follow Up In Cardiology Rene Castro MD [address], [address] [address] Rene Castro MD [address] [facility] 2, [address] [address] Referral ID Status Reason Start Date Expiration Date V isits Requested Visits Authorized [id number] Authorized 03/23/2023 03/22/2024 1 1 [facility] Work Phone: Reason for referral (narrative)* Consultation (Routine) - Authorized Specialty Diagnoses / Procedures Referred By Bryon hernandez Referred To Contact Cardiology Diagnoses Coronary artery disease involving [place] coronary artery of [place] heart without angina pectoris Procedures Follow Up In Cardiology Rene Castro MD [address] [facility] 2, [address] [address] Rene Castro MD [address] [address] [facility] [address], [address] [address] Referral ID Status Reason Start Date Expiration Date V isits Requested Visits Authorized [id number] Authorized 10/18/2023 10/17/2024 1 1 [facility] Work Phone: Chief Complaint * DEMARCUS PANCHAL [...] infarction with no ischemia. EF in the [id number]. He remains compensated as for ischemic cardiomyopathy. [...] on low-calorie diet * Rene Castro MD, [facility] Family History No Family History Records FoundUnknown [...] W/O & W/CONTRAST MATRL Deandra Bender MD [address] [place] [address] Mr Imaging Referral ID Status Reason Start Date Expiration Date Visits Requested Visits Authorized [id number] Pending Review Auto-Generat ed Referral 06/21/2022 07/21/2023 1 1 Specialty Diagnoses / Procedures Referred By Bryon hernandez Referred To Contact MR IMAGING Diagnoses Paralytic strabismus Procedures MRI BRAIN WO/W IVCON MRI BRAIN BRAIN STEM W/O W/CONTRAST MATERIAL Deandra Bender MD [address] [place] [address] Mr Imaging Referral ID Status Reason Start Date Expiration Date Visits Requested Visits Authorized [id number] Pending Review Auto-Generat ed Referral 06/21/2022 07/21/2023 1 1 Summary Purpose Advance Directives No Advanced Directives Records Found Advance Directive Response Recorded Date/ Time Advance Directives No September 19, 018 2:33pm Advance Directive Response Recorded Date/ Time Advance Directives No September 19, 018 1:33pm Chief Complaint and Reason for Visit [...] or prosecute any alcohol or drug abuse patient.[facility] the event this information is protected by the Federal Confidentiality of Alcohol and Drug Abuse Patient Records regulations: The Federal rules restrict any use of the information to criminally investigate or prosecute any alcohol or drug abuse patient.[facility] the event this information is protected by the Federal Confidentiality of Alcohol and Drug Abuse Patient Records regulations: The Federal rules restrict any use of the information to criminally investigate or prosecute any alcohol or drug abuse patient.[facility] the event this information is protected by the Federal Confidentiality of Alcohol and Drug Abuse Patient Records regulations: The Federal rules restrict any use of the information to criminally investigate or prosecute any alcohol or drug abuse patient.[facility] the event this information is protected by the Federal Confidentiality of Alcohol and Drug Abuse Patient Records regulations: The Federal rules restrict any use of the information to criminally investigate or prosecute any alcohol or drug abuse patient.[facility] Reason for Visit (unrecogniz ed section and [...] , up to 100 units Procedures BOTOX EI [id number] [place] [address] [place] [address] Deandra Bender MD [address] [place] [address] Referral ID Status Reason Start Date Expiration Date V isits Requested Visits Authorized [id number] Authorized 11/14/2022 05/27/2023 99 99 Reason Comments Follow-up 6 months Reason Comments Follow-up 6m Specialty Diagnoses / Procedures Referred By Contac t Referred To Contact Cardiology Diagnoses Coronary artery disease involving [place] coronary artery of [place] heart without angina pectoris Essential hypertension Mixed hyperlipidemia Ischemic cardiomyopathy Status post coronary artery stent placement Class 2 obesity with body mass index (BMI) of 35.0 to 35.9 in adult, unspecified obesity type, unspecified whether serious comorbidity present Procedures Follow Up In Cardiology Rene Castro MD [address] [facility] 2, [address] [address] Rene Castro MD [address] [facility] 2, [facility] [address] [place] [address] Referral ID Status Reason Start Date Expiration Date V isits Requested Visits Authorized [id number] Authorized 03/23/2023 03/22/2024 1 1 (unrecognized sect ion and content) No Status Records FoundNo Status Records FoundNo Status Records FoundNo Status Records FoundNo Status Records FoundNo Status Records FoundNo Status Records FoundNo Status Records Found INFORMATION SOURCE (unrecogn ized section and content) DATE CREATED AUTHOR 07/16/2022 [facility] dical Specialist DATE CREATED AUTHOR AUTHOR'S ORGANIZ ATION 09/09/2022 [employer] DATE CREATED AUTHOR AUTHOR'S ORGANIZ ATION 11/14/2022 [facility] DATE CREATED AUTHOR AUTHOR'S ORGANIZ ATION 02/12/2023 [facility] DATE CREATED AUTHOR AUTHOR'S ORGANIZ ATION 02/28/2023 [facility] DATE CREATED AUTHOR AUTHOR'S ORGANIZ ATION 06/25/2023 [facility] DATE CREATED AUTHOR AUTHOR'S ORGANIZ ATION 09/22/2023 [facility] dical Specialists EPIC DATE CREATED AUTHOR AUTHOR'S ORGANIZ ATION 10/20/2023 [facility] Research Project Coordinator Teams (unrecognized sec tion and content) Team Status: Active Member Role Status Dates Sera Flower MD Primary Care Provider Active Team Status: Inactive Member Role Status Dates Sera Flower MD Primary Care Provider, Other Provider Active Rene Castro MD Attending Provider Active Radio Commentator Relationship Specialty Start Date End Date Sera Flower MD [address] [place] [address] PCP - General 02/16/21 Team Status: Inactive Member Role Status Dates Sera Flower MD Primary Care Provider Active St art: June 14, 2023 End: June 14, 2023 Jasper Martinez DO Emergency Provider Active Start: June 14, 2023 End: June 14, 2023 Radio Commentator Relationship Specialty Start Date End Date Sera Flower MD [address] [place] [address] PCP - [employer] 05/28/22 Sera Flower MD [address] [place] [address] PCP - General Internal Medicine 10/03/22 Radio Commentator Relationship Specialty Start Date End Date Sera Flower MD [address] [place] [address] PCP - General 02/16/21 Goals (unrecognized section and content) Goals may [...] BE BASED ON THE PRIMARY CLINICAL RECORDS. [employer] provides no warranty or guarantee of the accuracy or completeness of information in this document.
--- NOTE | 2023-12-24 05:13 | ED_ITS ---
HPI - SOB/Dyspnea General Chief Complaint: Shortness of Breath/Dyspnea Stated Complaint: SOB Time Seen by Provider: 12/24/23 05:02 Source: patient Mode of arrival: walk-in History of Present Illness HPI Narrative: patient presents complaining of shortness of breath when lying down. Not able to sleep because of it. Has to sit back up. Ongoing for past couple of days. No fever , chest pain. Does complain of epigastric pain. Denies lower ext. edema. history of COPD Related Data Home Medications ?Medication ?Instructions ?Recorded ?Confirmed carvedilol 6.25 mg tablet 6.25 mg PO Q12H 07/22/23 07/22/23 losartan 50 mg tablet 50 mg PO Q24H 07/22/23 07/22/23 omeprazole 20 mg capsule,delayed 20 mg PO Q24H 07/22/23 07/22/23 release tamsulosin 0.4 mg capsule 0.4 mg PO Q24H 07/22/23 07/22/23 albuterol sulfate 90 mcg/actuation 2 puff inhalation Q6H PRN 07/23/23 07/23/23 aerosol inhaler shortness of breath Previous Rx's ?Medication ?Instructions ?Recorded thgqbdlnzqegwdv-bzrsqhlwnkplaxv-PC 5 ml PO Q6H PRN cough 7 days #473 07/25/23 2 mg-30 mg-10 mg/5 mL oral syrup mL (Bromfed DM) fluticasone fur. 200 mcg-umeclid 1 inh inhalation DAILY 30 days #60 07/25/23 62.5 mcg-vilant 25 mcg ea inhalat.powder (Trelegy Ellipta) fluticasone propionate 50 2 spray intranasal QD 30 days #3 mL 07/25/23 mcg/actuation nasal spray,suspension levofloxacin 750 mg tablet 750 mg PO Q24H 5 days #5 tabs 07/25/23 nystatin 100,000 unit/gram topical 1 applic topical BID 10 days #30 07/25/23 cream grams prednisone 20 mg tablet 20 mg PO BID 7 days #14 tabs 07/25/23 Allergies Allergy/AdvReac Type Severity Reaction Status Date / Time codine AdvReac Intermediate Uncoded 07/22/23 13:05 Review of Systems ROS Status of ROS 10 or more systems reviewed and unremark able except as noted in history and below [facility] Medical History (Updated 12/24/23 @ 06:27 by Clayton Ambrose MD) GERD (gastroesophageal reflux disease) ?K21.9 - Gastro-esophageal reflux disease without esophagitis (ICD-10) Hypertension ?I10 - Essential (primary) hypertension (ICD-10) COPD (chronic obstructive pulmonary disease) ?J44.9 - Chronic obstructive pulmonary disease, unspecified (ICD-10) Bronchitis ?J40 - Bronchitis, not specified as acute or chronic (ICD-10) Emphysema of lung ?J43.9 - Emphysema, unspecified (ICD-10) Heart attack ?I21.9 - Acute myocardial infarction, unspecified (ICD-10) COPD exacerbation ?J44.1 - Chronic obstructive pulmonary disease with (acute) exacerbation (ICD-10) COVID-19 ?U07.1 - COVID-19 (ICD-10) Surgical History H/O heart artery stent ?Z95.5 - Presence of coronary angioplasty implant and graft (ICD-10) Family History Other Family history of cancer Social History Smoking status: Former smoker Highest level of school completed/degree received: high school graduate Exam Constitutional Vital Signs, click to edit/add: Last Vital Signs Temp 97.6 F 12/24/23 04:47 Pulse 63 12/24/23 05:51 Resp 20 12/24/23 05:51 BP 165/90 H 12/24/23 04:47 Pulse Ox 96 12/24/23 05:51 O2 Del Method Room Air 12/24/23 05:51 Common normals: no apparent distress, oriented x3, no limitations, healthy appearing, alert and well nourished HENMT Common normals: normocephalic and head/scalp atraumatic Eye Common normals: EOMs intact bilaterally and conjunctivae normal Chest Common normals: palpation of chest normal Respiratory Common normals: normal respiratory effort, no retractions, no use of accessory muscles and clear to auscultation bilaterally Cardio Common normals: regular rate, regular rhythm, S1 normal heart sound and S2 normal heart sound GI Common normals: Normal to inspection, nondistended, normoactive bowel sounds present, soft to palpation and non-tender Extremity Common normals: normal to inspection and full ROM General: edema (trace edema bilat lower ext) Neuro Common normals: oriented x3, CN's II-XII intact bilaterally, moves all extremities and no focal motor deficits Psych Appearance: grossly normal Course Vital Signs Vital signs: Vital Signs Temperature 97.6 F 12/24/23 04:47 Respiratory Rate 18 12/24/23 04:47 Blood Pressure 165/90 H 12/24/23 04:47 Pulse Oximetry 97 12/24/23 04:47 Oxygen Delivery Method Room Air 12/24/23 04:47 Temperature 97.6 F 12/24/23 04:47 Pulse Rate 63 12/24/23 05:51 Respiratory Rate 20 12/24/23 05:51 Blood Pressure 165/90 H 12/24/23 04:47 Pulse Oximetry 96 12/24/23 05:51 Oxygen Delivery Method Room Air 12/24/23 05:51 MDM - SOB/Dyspnea MDM Narrative Medical decision making narrative: history of COPD. Describes orthopnea for past couple of nights and inability to sleep because of it. No chest pain but does complain of epigastric pain. No respiratory distress and RA pulse ox 97%. cxray and labs ordered including troponin and d-dimer. also ordered Duoneb and solumedrol cxray returns with findings supporting CHF. Patient has no findings to support infection . Afebrile and normal WBC. Neg COVID19 discussed with Hospitalist Dr Britt and will plan obs admission Lab Data Labs: Lab Results 12/24/23 12/24/23 Range/Units 05:20 05:25 WBC 6.7 (4.0-11.0) 10^3/uL RBC 4.68 L (4.70-6.10) 10^6/uL Hgb 13.6 L (14.0-18.0) g/dL Hct 39.8 L (42.0-54.0) % MCV 85.0 (80.0-94.0) fL MCH 29.1 (25.9-34.0) pg MCHC 34.2 (29.9-35.2) g/dL RDW 13.2 (11.0-15.0) % Plt Count 180 (150-450) 10^3/uL MPV 10.2 (9.5-13.5) fL Neut % (Auto) 55.7 (43.0-75.0) % Lymph % (Auto) 22.5 (20.5-60.0) % [place] % (Auto) 13.8 H (1.7-12.0) % Eos % (Auto) 7.0 (0.9-7.0) % Baso % (Auto) 0.9 (0.2-2.0) % Neut # (Auto) 3.7 (1.4-6.5) 10^3/uL Lymph # (Auto) 1.5 (1.2-3.8) 10^3/uL [place] # (Auto) 0.9 H (0.3-0.8) 10^3/uL Eos # (Auto) 0.5 (0.0-0.7) 10^3/uL Baso # (Auto) 0.1 (0.0-0.1) 10^3/uL Abs Immat Gran (auto) 0.01 (0.00-0.03) 10^3/uL Imm/Tot Granulo (auto) 0.1 (0.0-0.5) % D-Dimer 0.59 (<=0.59) mg/L FEU Sodium 133 L (136-145) mmol/L Potassium 4.2 (3.5-5.1) mmol/L Chloride 101 (98-107) mmol/L Carbon Dioxide 25.3 (21.0-32.0) mmol/L Anion Gap 10.9 BUN 13.0 (7.0-18.0) mg/dL Creatinine 0.85 (0.70-1.30) mg/dL Est GFR ( Amer) >60 (>=60) Est GFR (Non-Af Amer) >60 (>=60) BUN/Creatinine Ratio 15.3 Glucose 99 (74-106) mg/dL Calcium 8.7 (8.5-10.1) mg/dL Troponin I High Sens 17.3 (4.0-76.1) pg/mL NT-Pro-B Natriuret Pep 377.0 (<=900.0) pg/mL SARS-CoV-2 Ag (CV2AG) Negative (NEGATIVE) Imaging Data Chest x-ray: Radiologist's impression: ITS Impressions Chest X-Ray 12/24/23 05:16 IMPRESSION: 1. Low lung volume examination with suspected mild bilateral pulmonary infiltrates; pulmonary edema versus infectious etiology. Electronically authenticated by: TEX HARTMANN Date: 12/24/2023 05:45 Discharge Plan Discharge Chief Complaint: Shortness of Breath/Dyspnea Clinical Impression: Congestive heart failure Patient Disposition: Admitted as Observation
--- NOTE | 2023-12-24 05:16 | ECG_ITS ---
The [facility] Test Date: 2023-12-24 Pat Name: DEMARCUS CALDERON Department: Room: - Gender: Male [employer]: : 1955 Requested By: Order Number: [id number] Reading MD: LATOSHA FRANCIS Measurements Intervals Lapel Rate: 63 P: 36 DE: 182 QRS: -6 QRSD: 100 T: 84 QT: 422 QTc: 429 Interpretive Statements 1100 Sinus rhythm 4068 Nonspecific Twave abnormality 5211 Minimal voltage criteria for LVH, may be normal variant 9130 borderline ECG Compared to ECG 07/22/2023 09:59:56 Left ventricular hypertrophy now present Electronically Signed On 12-24-2023 23:34:17 EDT by LATOSHA FRANCIS
--- NOTE | 2023-12-24 05:16 | XR_ITS ---
The [address] [address] Patient Name: DEMARCUS CALDERON MRN: [id number] date: 1955 Sex: M Assigned Patient Location: ER Current Patient Location: ER Accession/Order Number: [id number] Exam Date: 12/24/2023 05:30 Report Date: 12/24/2023 05:45 At the request of: PHILIP ADAMS Procedure: XR chest 1V EXAMINATION: XR chest 1V HISTORY: short of breath COMPARISON: XR chest 07/24/2023 FINDINGS: LUNGS: Mild haziness and patchy opacities scattered throughout the lungs. Underexpanded lungs. VASCULATURE: No increased pulmonary vasculature. PLEURA: No pneumothorax, effusion, or pleural thickening. CARDIAC: Suspect mild cardiomegaly. MEDIASTINUM: No visible mass or adenopathy. BONES: No fracture or visible bone lesion. OTHER: Negative. XR/XR chest 1V IMPRESSION: 1. Low lung volume examination with suspected mild bilateral pulmonary infiltrates; pulmonary edema versus infectious etiology. Electronically authenticated by: TEX HARTMANN Date: 12/24/2023 05:45
[2023-12-24 05:36] LABS: Basophils Absolute Auto 0.1 10^3/uL (0.0-0.1); Basophils Percent Auto 0.9 % (0.2-2.0); Eosinophils Absolute Auto 0.5 10^3/uL (0.0-0.7); Hematocrit 39.8 % (42.0-54.0); Hemoglobin 13.6 g/dL (14.0-18.0); Immature Granulocytes Abs Auto 0.01 10^3/uL (0.00-0.03); Immature Granulocytes Pct Auto 0.1 % (0.0-0.5); Lymphocytes Absolute Auto 1.5 10^3/uL (1.2-3.8); Lymphocytes Percent Auto 22.5 % (20.5-60.0); Mean Corpuscular HGB Conc 34.2 g/dL (29.9-35.2); Mean Corpuscular Hemoglobin 29.1 pg (25.9-34.0); Mean Platelet Volume 10.2 fL (9.5-13.5); Monocytes Absolute Auto 0.9 10^3/uL (0.3-0.8); Monocytes Percent Auto 13.8 % (1.7-12.0); Neutrophils Absolute Auto 3.7 10^3/uL (1.4-6.5); Neutrophils Percent Auto 55.7 % (43.0-75.0); Platelet Count 180 10^3/uL (150-450); Red Blood Count 4.68 10^6/uL (4.70-6.10); Red Cell Distribution Width 13.2 % (11.0-15.0); White Blood Count 6.7 10^3/uL (4.0-11.0)
[2023-12-24 05:49] LABS: Internal Control Within Normal Limits; SARS-CoV-2 Ag NEGATIVE (NEGATIVE)
[2023-12-24] MEDS: METHYLPREDNISOLONE SOD SUCC PF 125 MG/2 ML VIAL IVP (05:49)
[2023-12-24] MEDS: IPRATROPIUM/ALBUTEROL SULFATE 3 ML AMPUL.NEB IH ×5 (05:50→23:34)
[2023-12-24 05:56] LABS: D Dimer 0.59 mg/L FEU (<=0.59)
[2023-12-24 05:59] LABS: Anion Gap 10.9; BUN Creatinine Ratio 15.3; Calcium 8.7 mg/dL (8.5-10.1); Carbon Dioxide 25.3 mmol/L (21.0-32.0); Chloride 101 mmol/L (98-107); Estimated GFR (African America >60 (>=60); Estimated GFR (Non-African Ame >60 (>=60); Glucose 99 mg/dL (74-106); Potassium 4.2 mmol/L (3.5-5.1); Sodium 133 mmol/L (136-145); Troponin I High Sensitivity 17.3 pg/mL (4.0-76.1)
[2023-12-24] MEDS: FUROSEMIDE 40 MG/4 ML VIAL IVP ×3 (06:41→23:26)
--- OUTSIDE RECORDS SUMMARY | 2023-12-24 06:52 | XMS_ITS | CCD ---
Author Organization [facility] Care Team Providers Care Mixing Machine Attendant Name Role Phone Sera Flower Unavailable Unavailable [...] Unavailable Sera Flower MD Primary Care Provider MD Sera Flower Primary Care Provider DO Jasper Martinez Emergency Provider Jasper Martinez Admitting Unavailable Jasper Martinez Attending [...] Care Unavailable RENE CASTRO Attending Unavailable RENE CASTRO Referring Unavailable SERA FLOWER Primary Care Unavailable Allergies Allergy Classification Reported Allergen(s) Allergy Type Date of Onset Reaction(s) Facility (18 sources) Codeine; Translations: [codeine] Drug Allergy 6 Vomiting, Unknown, Nausea And Vomiting, Other [facility] (6 sources) Codeine / guaiFENesin; Translations: [CODEINE-GUAIFEN ESIN] Drug Allergy 1 Other: See Comments [facility] (6 sources) guaiFENesin; Translations: [GUAIFENESIN] Drug Allergy 3 Other: See Comments [facility] (1 source) Codeine Drug Allergy 4 [facility] (2 sources) guaiFENesin Drug Allergy 3 Other [facility] Medications Current Medications Medication Drug Class(es) Dates Sig (Normalized) Sig (Original) albuterol 0.83 mg/ml inhalation solution (14 sources) beta2-Adrenergic Agonist Start: 06-21-2023 albuterol (2.5 MG/3ML) 0.083% nebulizer solution Indications: Chronic obstructive pulmonary disease, unspecified COPD type ([facility]) Take 3 mL (2.5 mg) by nebulization [...] t ongue. 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 Quantity: 0 [...] [Coronary atherosclerosis of unspecified type of vessel, ambler or graft] Onset: 01-03-2023 03-23-2023 Chronic Disorders [...] aPTT Coag (PPP) [Time] 30.2 s 25.1-36.5 [facility] Comment on above: A hematocrit value g reater than 55% may lead to inaccurate results in coagulation testing. Patients having hematocrit values >55% require a special collection tube for coagulation studies. Please contact the laboratory at [phone] for redraw instructions. Alanine aminotransferase [En zymatic activity/volume] in Serum or PlasmaOrdered By: Jasper Martinez on 06-14-2023 ALT [Catalytic activity/Vol] 37 U/L 7-52 [facility] Albumin [Mass/volume] in Ser um or Plasma by Bromocresol green (BCG) dye binding methoOrdered By: Jasper Martinez on 06-14-2023 Albumin BCG dye [Mass/Vol] 4.1 g/dL 3.5-5.7 [facility] Alkaline phosphatase [Enzyma tic activity/volume] in Serum or PlasmaOrdered By: Jasper Martinez on 06-14-2023 ALP [Catalytic activity/Vol] 59 U/L 34-104 [facility] Aspartate aminotransferase [ Enzymatic activity/volume] in Serum or PlasmaOrdered By: Jasper Martinez on 06-14-2023 AST [Catalytic activity/Vol] 29 U/L 13-39 [facility] B-Type Natriuretic Peptideon 06-14-2023 Natriuretic peptide B (Bld) [Mass/Vol] 67.0 pg/mL Normal 5-100 [facility] Comment on above: Result Comment: PERF ORMED BY: [place] [address] PATHOLOGIST PROPERTY MANAGEMENT SPECIALIST RAPHAEL RANGEL M.D. Performed By: #### C OVID19 FLU RSV, CEPHEID NEG #### [address] Basophils Auto (Bld) [#/Vol] Ordered By: Jasper Martinez on 06-14-2023 Basophils (Bld) [#/Vol] 0.0 10*3/uL 0.0-0.2 [facility] Basophils/100 WBC Auto (Bld) Ordered By: Jasper Martinez on 06-14-2023 Basophils/100 WBC (Bld) 0.6 % . [facility] Bilirubin.total [Mass/volume ] in Serum or PlasmaOrdered By: Jasper Martinez on 06-14-2023 Bilirubin [Mass/Vol] 0.4 mg/dL 0.3-1.0 [facility] COVID CepheidOrdered By: Asya Martinez on 06-14-2023 SARS-CoV-2 (COVID-19) Ab IA Ql Negative Negative [facility] Comment on above: This is a duplicate Cepheid Xpert Xpress CoV-2/Flu/RSV Plus RNA by RT-PCR result to be used for statistical tracking purpose only. SARS-CoV-2 (COVID-19) RNA VERONA+probe Ql (Unsp spec) [facility] COVID-19 / Flu A/B / RSV PCR [...] or Cepheid Disclaimer revoked sooner. PERFORMED BY: [place] [address] PATHOLOGIST PROPERTY MANAGEMENT SPECIALIST RAPHAEL RANGEL M.D. Normal [facility] Comment on above: Performed By: #### C OVID19 FLU RSV, CEPHEID NEG #### [place] [id number] [facility] Calcium [Mass/volume] in Ser um or PlasmaOrdered By: Jasper Martinez on 06-14-2023 Calcium [Mass/Vol] 9.0 mg/dL 8.6-10.3 [facility] Carbon dioxide, total [Moles /volume] in Serum or PlasmaOrdered By: Jasper Martinez on 06-14-2023 CO2 [Moles/Vol] 23.4 mmol/L 21.0-31.0 [facility] Cepheid COVID PCR Negativeon 06-14-2023 SARS-CoV-2 (COVID-19) RNA VERONA+probe Ql (Unsp spec) Negative Normal Negative [facility] Comment on above: Result Comment: This is a duplicate Cepheid Xpert Xpress CoV-2/Flu/RSV Plus RNA by RT-PCR result to be used for statistical tracking purpose only. PERFORMED BY: [place] [id number] PATHOLOGIST PROPERTY MANAGEMENT SPECIALIST RAPHAEL RANGEL M.D. Performed By: #### C OVID19 FLU RSV, CEPHEID NEG #### [address] Chloride [Moles/volume] in S taylor or PlasmaOrdered By: Jasper Martinez on 06-14-2023 Chloride [Moles/Vol] 105 mmol/L 98-107 [facility] Complete Blood Count Auto Di ffon 06-14-2023 Basophils (Bld) [#/Vol] 0.0 10*3/uL Normal 0.0-0.2 [facility] Comment on above: Result Comment: PERF ORMED BY: [place] [address] PATHOLOGIST PROPERTY MANAGEMENT SPECIALIST RAPHAEL RANGEL M.D. Performed By: #### B SATELLITE COMMUNICATIONS OPERATOR, CK, MG, CBC, HS TROP, PTT, PT, CMP #### [address] Basophils/100 WBC (Bld) 0.6 % Normal . [facility] Comment on above: Performed By: #### B SATELLITE COMMUNICATIONS OPERATOR, CK, MG, CBC, HS TROP, PTT, PT, CMP #### [address] Eosinophils (Bld) [#/Vol] 0.8 10*3/uL High 0.0-0.45 [facility] Comment on above: Performed By: #### B SATELLITE COMMUNICATIONS OPERATOR, CK, MG, CBC, HS TROP, PTT, PT, CMP #### [address] Eosinophils/100 WBC (Bld) 9.6 % Normal . [facility] Comment on above: Performed By: #### B SATELLITE COMMUNICATIONS OPERATOR, CK, MG, CBC, HS TROP, PTT, PT, CMP #### [address] Erythrocyte distribution width (RBC) [Ratio] 14.4 % Normal 12.0-14.8 [facility] Comment on above: Performed By: #### B SATELLITE COMMUNICATIONS OPERATOR, CK, MG, CBC, HS TROP, PTT, PT, CMP #### [address] Hematocrit (Bld) [Volume fraction] 40.8 % Normal 38.8-50.0 [facility] Comment on above: Performed By: #### B SATELLITE COMMUNICATIONS OPERATOR, CK, MG, CBC, HS TROP, PTT, PT, CMP #### [address] Hemoglobin (Bld) [Mass/Vol] 14.3 g/dL Normal 13.0-17.0 [facility] Comment on above: Performed By: #### B SATELLITE COMMUNICATIONS OPERATOR, CK, MG, CBC, HS TROP, PTT, PT, CMP #### [address] Lymphocytes (Bld) [#/Vol] 1.5 10*3/uL Normal 1.00-4.8 [facility] Comment on above: Performed By: #### B SATELLITE COMMUNICATIONS OPERATOR, CK, MG, CBC, HS TROP, PTT, PT, CMP #### [address] Lymphocytes/100 WBC (Bld) 18.5 % Normal . [facility] Comment on above: Performed By: #### B SATELLITE COMMUNICATIONS OPERATOR, CK, MG, CBC, HS TROP, PTT, PT, CMP #### [address] MCH (RBC) [Entitic mass] 30.1 pg Normal 27.5-35.2 [facility] Comment on above: Performed By: #### B SATELLITE COMMUNICATIONS OPERATOR, CK, MG, CBC, HS TROP, PTT, PT, CMP #### [address] MCV (RBC) [Entitic vol] 86.2 fL Normal 83.5-101 [facility] Comment on above: Performed By: #### B SATELLITE COMMUNICATIONS OPERATOR, CK, MG, CBC, HS TROP, PTT, PT, CMP #### [address] Mean Corpuscular HGB Conc 34.9 g/dL Normal 32.5-35.6 [facility] Comment on above: Performed By: #### B SATELLITE COMMUNICATIONS OPERATOR, CK, MG, CBC, HS TROP, PTT, PT, CMP #### [address] Monocytes (Bld) [#/Vol] 0.8 10*3/uL Normal 0.0-0.8 [facility] Comment on above: Performed By: #### B SATELLITE COMMUNICATIONS OPERATOR, CK, MG, CBC, HS TROP, PTT, PT, CMP #### [address] Monocytes/100 WBC (Bld) 16.39 % Normal 0.00-20.00 [facility] Comment on above: Performed By: #### B SATELLITE COMMUNICATIONS OPERATOR, CK, MG, CBC, HS TROP, PTT, PT, CMP #### [address] Monocytes/100 WBC (Bld) 10.1 % Normal . [facility] Comment on above: Performed By: #### B SATELLITE COMMUNICATIONS OPERATOR, CK, MG, CBC, HS TROP, PTT, PT, CMP #### [address] Neutrophils (Bld) [#/Vol] 4.9 10*3/uL Normal 1.8-7.7 [facility] Comment on above: Performed By: #### B SATELLITE COMMUNICATIONS OPERATOR, CK, MG, CBC, HS TROP, PTT, PT, CMP #### [address] Neutrophils/100 WBC (Bld) 61.2 % Normal . [facility] Comment on above: Performed By: #### B SATELLITE COMMUNICATIONS OPERATOR, CK, MG, CBC, HS TROP, PTT, PT, CMP #### [address] NRBC% 0.1 /100{WBC} Normal 0-0.5 [facility] Comment on above: Performed By: #### B SATELLITE COMMUNICATIONS OPERATOR, CK, MG, CBC, HS TROP, PTT, PT, CMP #### [address] Platelet mean volume (Bld) [Entitic vol] 8.4 fL Normal 6.6-10.1 [facility] Comment on above: Performed By: #### B SATELLITE COMMUNICATIONS OPERATOR, CK, MG, CBC, HS TROP, PTT, PT, CMP #### [facility] [address] Platelets (Bld) [#/Vol] 181 10*3/uL Normal 150-450 [facility] Comment on above: Performed By: #### B SATELLITE COMMUNICATIONS OPERATOR, CK, MG, CBC, HS TROP, PTT, PT, CMP #### [facility] [address] RBC (Bld) [#/Vol] 4.74 10*6/uL Normal 3.90-5.60 [facility] Comment on above: Performed By: #### B SATELLITE COMMUNICATIONS OPERATOR, CK, MG, CBC, HS TROP, PTT, PT, CMP #### [address] WBC (Bld) [#/Vol] 8.1 10*3/uL Normal 4.1-10.5 [facility] Comment on above: Performed By: #### B SATELLITE COMMUNICATIONS OPERATOR, CK, MG, CBC, HS TROP, PTT, PT, CMP #### [address] Comprehensive Metabolic Pane maria esther 06-14-2023 Albumin [Mass/Vol] 4.1 g/dL Normal 3.5-5.7 [facility] Comment on above: Performed By: #### B SATELLITE COMMUNICATIONS OPERATOR, CK, MG, CBC, HS TROP, PTT, PT, CMP #### [address] Albumin/Globulin [Mass ratio] 1.6 {ratio} Normal [facility] Comment on above: Performed By: #### B SATELLITE COMMUNICATIONS OPERATOR, CK, MG, CBC, HS TROP, PTT, PT, CMP #### [address] ALP [Catalytic activity/Vol] 59 U/L Normal 34-104 [facility] Comment on above: Performed By: #### B SATELLITE COMMUNICATIONS OPERATOR, CK, MG, CBC, HS TROP, PTT, PT, CMP #### [address] ALT [Catalytic activity/Vol] 37 U/L Normal 7-52 [facility] Comment on above: Performed By: #### B SATELLITE COMMUNICATIONS OPERATOR, CK, MG, CBC, HS TROP, PTT, PT, CMP #### [facility] [address] Anion gap [Moles/Vol] 11.5 mmol/L Normal 6.0-15.0 [facility] Comment on above: Performed By: #### B SATELLITE COMMUNICATIONS OPERATOR, CK, MG, CBC, HS TROP, PTT, PT, CMP #### [address] AST [Catalytic activity/Vol] 29 U/L Normal 13-39 [facility] Comment on above: Performed By: #### B SATELLITE COMMUNICATIONS OPERATOR, CK, MG, CBC, HS TROP, PTT, PT, CMP #### [address] Bilirubin [Mass/Vol] 0.4 mg/dL Normal 0.3-1.0 [facility] Comment on above: Performed By: #### B SATELLITE COMMUNICATIONS OPERATOR, CK, MG, CBC, HS TROP, PTT, PT, CMP #### [address] Calcium [Mass/Vol] 9.0 mg/dL Normal 8.6-10.3 [facility] Comment on above: Performed By: #### B SATELLITE COMMUNICATIONS OPERATOR, CK, MG, CBC, HS TROP, PTT, PT, CMP #### [facility] [address] [place] [address] Chloride [Moles/Vol] 105 mmol/L Normal 98-107 [facility] Comment on above: Performed By: #### B SATELLITE COMMUNICATIONS OPERATOR, CK, MG, CBC, HS TROP, PTT, PT, CMP #### [address] CO2 [Moles/Vol] 23.4 mmol/L Normal 21.0-31.0 [facility] Comment on above: Performed By: #### B SATELLITE COMMUNICATIONS OPERATOR, CK, MG, CBC, HS TROP, PTT, PT, CMP #### [address] Creatinine [Mass/Vol] 0.89 mg/dL Normal 0.70-1.30 [facility] Comment on above: Performed By: #### B SATELLITE COMMUNICATIONS OPERATOR, CK, MG, CBC, HS TROP, PTT, PT, CMP #### [facility] [address] Creatinine Clr Calc Pharmacy 92.42 [facility] Comment on above: Performed By: #### B SATELLITE COMMUNICATIONS OPERATOR, CK, MG, CBC, HS TROP, PTT, PT, CMP #### [facility] [address] GFR/1.73 sq M.predicted MDRD (S/P/Bld) [Vol rate/Area] mL/min/{1.73_m2} [facility] Comment on above: Performed By: #### B SATELLITE COMMUNICATIONS OPERATOR, CK, MG, CBC, HS TROP, PTT, PT, CMP #### [facility] [address] Globulin (S) [Mass/Vol] 2.5 g/dL [facility] Comment on above: Performed By: #### B SATELLITE COMMUNICATIONS OPERATOR, CK, MG, CBC, HS TROP, PTT, PT, CMP #### [facility] [address] Glucose [Mass/Vol] 144 mg/dL High 70-100 [facility] Comment on above: Result Comment: [place] Glucose Reference Range is dependent on time and content of last meal. Glucose of more than 200 mg/dL in a nonstressed, ambulatory subject supports the diagnosis of Diabetes Mellitus. ADA recommended reference range Performed By: #### B SATELLITE COMMUNICATIONS OPERATOR, CK, MG, CBC, HS TROP, PTT, PT, CMP #### [facility] [address] Potassium [Moles/Vol] 3.9 mmol/L Normal 3.5-5.1 [facility] Comment on above: Performed By: #### B SATELLITE COMMUNICATIONS OPERATOR, CK, MG, CBC, HS TROP, PTT, PT, CMP #### [facility] [address] Protein [Mass/Vol] 6.6 g/dL Normal 6.4-8.9 [facility] Comment on above: Performed By: #### B SATELLITE COMMUNICATIONS OPERATOR, CK, MG, CBC, HS TROP, PTT, PT, CMP #### [facility] [address] [place] [address] [place] Sodium [Moles/Vol] 136 mmol/L Normal 136-145 [facility] Comment on above: Performed By: #### B SATELLITE COMMUNICATIONS OPERATOR, CK, MG, CBC, HS TROP, PTT, PT, CMP #### [facility] [address] [place] [address] [place] Urea nitrogen [Mass/Vol] 12 mg/dL Normal 7-25 [facility] Comment on above: Performed By: #### B SATELLITE COMMUNICATIONS OPERATOR, CK, MG, CBC, HS TROP, PTT, PT, CMP #### [facility] [address] [place] [address] [place] Creatine Kinaseon 06-14-2023 CK [Catalytic activity/Vol] 185 U/L Normal 30- [facility] Comment on above: Performed By: #### C OVID19 FLU RSV, CEPHEID NEG #### [facility] [address] [place] [id number] [place] Creatine kinase [Enzymatic a ctivity/volume] in Serum or PlasmaOrdered By: Jasper Martinez on 06-14-2023 CK [Catalytic activity/Vol] 185 U/L 30-223 [facility] Creatinine [Mass/volume] in Serum or PlasmaOrdered By: Jasper Martinez on 06-14-2023 Creatinine [Mass/Vol] 0.89 mg/dL 0.70-1.30 [facility] ECG 12 lead ECGon 06-14-2023 ECG 12 lead ECG [facility] [place] [address] [place] [address] Electrocardiograph Report Signed Patient: Demarcus Panchal MR#: [id number] 652 : 1955 Acct:[id number] Age/Sex: 68 / M ADM Date: 06/14/23 Loc: ER Room: Type: [facility] ER Attending Dr: Ordering Provider: Jasper [...] sinus rhythm Confirmed by Jasper MARTINEZ DO ([id number]) on 06/14/2023 2:25:14 PM Referred By: Electronically Signed By:Jasper MARTINEZ DO Transcribed By: MUS Signed By Jasper Martinez DO 0 06/14/23 1425 Normal [facility] Eosinophils Auto (Bld) [#/Vo l]Ordered By: Jasper Martinez on 06-14-2023 Eosinophils (Bld) [#/Vol] 0.8 10*3/uL 0.0-0.45 [facility] Eosinophils/100 WBC Auto (Bl d)Ordered By: Jasper Martinez on 06-14-2023 Eosinophils/100 WBC (Bld) 9.6 % . [facility] Erythrocyte distribution wid th Auto (RBC) [Ratio]Ordered By: Jasper Martinez on 06-14-2023 Erythrocyte distribution width (RBC) [Ratio] 14.4 % 12.0-14.8 [facility] Globulin Calc (S) [Mass/Vol] Ordered By: Jasper Martinez on 06-14-2023 Globulin (S) [Mass/Vol] 2.5 g/dL [facility] Glucose [Mass/volume] in Ser um or PlasmaOrdered By: Jasper Martinez on 06-14-2023 Glucose [Mass/Vol] 144 mg/dL 70-100 [facility] Comment on above: ADA recommended refe rence rangeRandom Glucose Reference Range is dependent on time and content of last meal. Glucose of more than 200 mg/dL in a nonstressed, ambulatory subject supports the diagnosis of Diabetes Mellitus. Hematocrit Auto (Bld) [Volum e fraction]Ordered By: Jasper Martinez on 06-14-2023 Hematocrit (Bld) [Volume fraction] 40.8 % 38.8-50.0 [facility] Hemoglobin [Mass/volume] in BloodOrdered By: Jasper Martinez on 06-14-2023 Hemoglobin (Bld) [Mass/Vol] 14.3 g/dL 13.0-17.0 [facility] INR in Platelet poor plasma by Coagulation assayOrdered By: Jasper Martinez on 06-14-2023 INR Coag (PPP) [Relative time] 1.1 {INR} [facility] Comment on above: INR Therapeutic Rang e [...] RBC Auto (Bld) [#/Vol] 8.1 10*3/uL 4.1-10.5 [facility] Lymphocytes Auto (Bld) [#/Vo l]Ordered By: Jasper Martinez on 06-14-2023 Lymphocytes (Bld) [#/Vol] 1.5 10*3/uL 1.00-4.8 [facility] Lymphocytes/100 WBC Auto (Bl d)Ordered By: Jasper Martinez on 06-14-2023 Lymphocytes/100 WBC (Bld) 18.5 % . [facility] MCH Auto (RBC) [Entitic mass ]Ordered By: Jasper Martinez on 06-14-2023 MCH (RBC) [Entitic mass] 30.1 pg 27.5-35.2 [facility] MCHC Auto (RBC) [Mass/Vol]Or dered By: Jasper Martinez on 06-14-2023 MCHC (RBC) [Mass/Vol] 34.9 g/dL 32.5-35.6 [facility] MCV Auto (RBC) [Entitic vol] Ordered By: Jasper Martinez on 06-14-2023 MCV (RBC) [Entitic vol] 86.2 fL 83.5-101 [facility] Magnesiumon 06-14-2023 Magnesium [Mass/Vol] 2.0 mg/dL Normal 1.9-2.7 [facility] Comment on above: Result Comment: PERF ORMED BY: [facility] [address] [place] [address] PATHOLOGIST PROPERTY MANAGEMENT SPECIALIST RAPHAEL RANGEL M.D. Performed By: #### B SATELLITE COMMUNICATIONS OPERATOR, CK, MG, CBC, HS TROP, PTT, PT, CMP #### [facility] [address] [place] [id number] [facility] Magnesium [Mass/volume] in S taylor or PlasmaOrdered By: Jasper Martinez on 06-14-2023 Magnesium [Mass/Vol] 2.0 mg/dL 1.9-2.7 [facility] Monocyte distribution width [Entitic volume] in Blood by AutomatedOrdered By: Jasper Martinez on 06-14-2023 Monocyte distribution width Auto (Bld) [Entitic vol] 16.39 % 0.00-20.00 [facility] Monocytes Auto (Bld) [#/Vol] Ordered By: Jasper Martinez on 06-14-2023 Monocytes (Bld) [#/Vol] 0.8 10*3/uL 0.0-0.8 [facility] Monocytes/100 WBC Auto (Bld) Ordered By: Jasper Martinez on 06-14-2023 Monocytes/100 WBC (Bld) 10.1 % . [facility] Natriuretic peptide B [Mass/ Vol]Ordered By: Jasper Martinez on 06-14-2023 Natriuretic peptide B (Bld) [Mass/Vol] 67.0 pg/mL 5-100 [facility] Neutrophils Auto (Bld) [#/Vo l]Ordered By: Jasper Martinez on 06-14-2023 Neutrophils (Bld) [#/Vol] 4.9 10*3/uL 1.8-7.7 [facility] Neutrophils/100 WBC Auto (Bl d)Ordered By: Jasper Martinez on 06-14-2023 Neutrophils/100 WBC (Bld) 61.2 % . [facility] No Panel InformationOrdered By: Jasper Martinez on 06-14-2023 Estimated GFR (CKD-EPI) > 60.0 mL/Min [facility] Creatinine Clearance (Chem 92.42 [facility] Nucleated erythrocytes [Pres ence] in Blood by Automated countOrdered By: Jasper Martinez on 06-14-2023 Nucleated RBC Auto Ql (Bld) 0.1 /100{WBC} 0-0.5 [facility] Partial Thromboplastin Timeo n 06-14-2023 aPTT Coag (Bld) [Time] 30.2 s Normal 25.1-36.5 [facility] Comment on above: Result Comment: A he matocrit value greater than 55% may lead to inaccurate results in coagulation testing. Patients having hematocrit values >55% require a special collection tube for coagulation studies. Please contact the laboratory at [phone] for redraw instructions. PERFORMED BY: [place] [address] PATHOLOGIST PROPERTY MANAGEMENT SPECIALIST RAPHAEL RANGEL M.D. Performed By: #### C OVID19 FLU RSV, CEPHEID NEG #### [address] Platelet mean volume Auto (B ld) [Entitic vol]Ordered By: Jasper Martinez on 06-14-2023 Platelet mean volume (Bld) [Entitic vol] 8.4 fL 6.6-10.1 [facility] Platelets Auto (Bld) [#/Vol] Ordered By: Jasper Martinez on 06-14-2023 Platelets (Bld) [#/Vol] 181 10*3/uL 150-450 [facility] Potassium [Moles/volume] in Serum or PlasmaOrdered By: Jasper Martinez on 06-14-2023 Potassium [Moles/Vol] 3.9 mmol/L 3.5-5.1 [facility] Protein [Mass/volume] in Ser um or PlasmaOrdered By: Jasper Martinez on 06-14-2023 Protein [Mass/Vol] 6.6 g/dL 6.4-8.9 [facility] Prothrombin Time INRon 06-14 INR Coag (PPP) [Relative time] 1.1 {INR} Normal [facility] Comment on above: Result Comment: INR Therapeutic [...] 3 - 4.5 Performed By: #### B SATELLITE COMMUNICATIONS OPERATOR, CK, MG, CBC, HS TROP, PTT, PT, CMP #### [facility] [address] [place] [address] [facility] PT Coag (PPP) [Time] 12.1 s Normal 9.0-12.9 [facility] Comment on above: Result Comment: A he matocrit value greater than 55% may lead to inaccurate results in coagulation testing. Patients having hematocrit values >55% require a special collection tube for coagulation studies. Please contact the laboratory at [phone] for redraw instructions. Performed By: #### B SATELLITE COMMUNICATIONS OPERATOR, CK, MG, CBC, HS TROP, PTT, PT, CMP #### [facility] [address] [place] [id number] [facility] Prothrombin time (PT)Ordered By: Jasper Martinez on 06-14-2023 PT Coag (PPP) [Time] 12.1 s 9.0-12.9 [facility] Comment on above: A hematocrit value g reater than 55% may lead to inaccurate results in coagulation testing. Patients having hematocrit values >55% require a special collection tube for coagulation studies. Please contact the laboratory at [phone] for redraw instructions. RBC Auto (Bld) [#/Vol]Ordere d By: Jasper Martinez on 06-14-2023 RBC (Bld) [#/Vol] 4.74 10*6/uL 3.90-5.60 [facility] Serum or plasma albumin/glob ulin mass ratioOrdered By: Jasper Martinez on 06-14-2023 Albumin/Globulin [Mass ratio] 1.6 {ratio} [facility] Serum or plasma anion gap de terminationOrdered By: Jasper Martinez on 06-14-2023 Anion gap [Moles/Vol] 11.5 mmol/L 6.0-15.0 [facility] Sodium [Moles/volume] in Ser um or PlasmaOrdered By: Jasper Martinez on 01-18-2024 Sodium [Moles/Vol] 136 mmol/L 136-145 [facility] Troponin I High Sensitivityo n 06-14-2023 Troponin I High Sensitivity 26.8 pg/mL High 0.0-20.0 [facility] Comment on above: Result Comment: PERF ORMED BY: [place] [address] PATHOLOGIST PROPERTY MANAGEMENT SPECIALIST RAPHAEL RANGEL M.D. Performed By: #### C OVID19 FLU RSV, CEPHEID NEG #### [address] Troponin I.cardiac [Mass/vol ume] in Serum or Plasma by Detection limit <= 0.01 ng/Ordered By: Jasper Martinez on 06-14-2023 Troponin I.cardiac DL <= 0.01 ng/mL [Mass/Vol] 26.8 pg/mL 0.0-20.0 [facility] Urea nitrogen [Mass/volume] in Serum or PlasmaOrdered By: Jasper Martinez on 06-14-2023 Urea nitrogen [Mass/Vol] 12 mg/dL 7-25 [facility] WBC Auto (Bld) [#/Vol]Ordere d By: Jasper Martinez on 06-14-2023 WBC (Bld) [#/Vol] 8.1 10*3/uL 4.1-10.5 [facility] XR chest 2V*on 06-14-2023 XR chest 2V* [facility] [place] [address] [place] [address] XRay Report Signed Patient: Demarcus Panchal MR#: [id number] 652 : 1955 Acct:[id number] Age/Sex: 68 / M ADM Date: 06/14/23 Loc: ER Room: [facility] [facility] Attending Dr: Copies to: Jasper [...] Salvador Nguyễn M.D.06/14/2023 1:59 PM Dictation Location: [place] [address] Transcribed By: [facility] 06/14/23 1359 Dictated By: Salvador Nguyễn DO 06/14/23 1354 Signed By: 06/14/23 1359 Normal [facility] Cardiac echo study Procedure on 03-20-2023 Ordered by an unspec ified provider. [facility] Alanine aminotransferase [En zymatic activity/volume] in Serum or PlasmaOrdered By: Sera Flower on 02-05-2023 ALT [Catalytic activity/Vol] 51 U/L 7-52 [facility] Albumin [Mass/volume] in Ser um or Plasma by Bromocresol green (BCG) dye binding methoOrdered By: Sera Flower on 02-05-2023 Albumin BCG dye [Mass/Vol] 4.4 g/dL 3.5-5.7 [facility] Alkaline phosphatase [Enzyma tic activity/volume] in Serum or PlasmaOrdered By: Sera Flower on 02-05-2023 ALP [Catalytic activity/Vol] 61 U/L 34-104 [facility] Aspartate aminotransferase [ Enzymatic activity/volume] in Serum or PlasmaOrdered By: Sera Flower on 02-05-2023 AST [Catalytic activity/Vol] 39 U/L 13-39 [facility] Bilirubin.total [Mass/volume ] in Serum or PlasmaOrdered By: Sera Flower on 02-05-2023 Bilirubin [Mass/Vol] 0.7 mg/dL 0.3-1.0 [facility] Calcium [Mass/volume] in Ser um or PlasmaOrdered By: Sera Flower on 02-05-2023 Calcium [Mass/Vol] 9.1 mg/dL 8.6-10.3 [facility] Carbon dioxide, total [Moles /volume] in Serum or PlasmaOrdered By: Sera Flower on 02-05-2023 CO2 [Moles/Vol] 28.0 mmol/L 21.0-31.0 [facility] Chloride [Moles/volume] in S taylor or PlasmaOrdered By: Sera Flower on 02-05-2023 Chloride [Moles/Vol] 103 mmol/L 98-107 [facility] Comprehensive Metabolic Pane maria esther 02-05-2023 Albumin [Mass/Vol] 4.4 g/dL Normal 3.5-5.7 [facility] Comment on above: Order Comment: PT IS FASTING Performed By: #### C MP #### [address] Albumin/Globulin [Mass ratio] 2.6 {ratio} Normal [facility] Comment on above: Order Comment: PT IS FASTING Performed By: #### C MP #### [address] ALP [Catalytic activity/Vol] 61 U/L Normal 34-104 [facility] Comment on above: Order Comment: PT IS FASTING Result Comment: PERF ORMED BY: [place] [address] PATHOLOGIST PROPERTY MANAGEMENT SPECIALIST RAPHAEL RANGEL M.D. Performed By: #### C MP #### [address] ALT [Catalytic activity/Vol] 51 U/L Normal 7-52 [facility] Comment on above: Order Comment: PT IS FASTING Performed By: #### C MP #### [address] Anion gap [Moles/Vol] 11.4 mmol/L Normal 6.0-15.0 [facility] Comment on above: Order Comment: PT IS FASTING Performed By: #### C MP #### [address] AST [Catalytic activity/Vol] 39 U/L Normal 13-39 [facility] Comment on above: Order Comment: PT IS FASTING Performed By: #### C MP #### [place] [address] [place] Bilirubin [Mass/Vol] 0.7 mg/dL Normal 0.3-1.0 [facility] Comment on above: Order Comment: PT IS FASTING Performed By: #### C MP #### [facility] [address] Calcium [Mass/Vol] 9.1 mg/dL Normal 8.6-10.3 [facility] Comment on above: Order Comment: PT IS FASTING Performed By: #### C MP #### [facility] [address] Chloride [Moles/Vol] 103 mmol/L Normal 98-107 [facility] Comment on above: Order Comment: PT IS FASTING Performed By: #### C MP #### [address] CO2 [Moles/Vol] 28.0 mmol/L Normal 21.0-31.0 [facility] Comment on above: Order Comment: PT IS FASTING Performed By: #### C MP #### [address] Creatinine [Mass/Vol] 1.00 mg/dL Normal 0.70-1.30 [facility] Comment on above: Order Comment: PT IS FASTING Performed By: #### C MP #### [address] GFR/1.73 sq M.predicted MDRD (S/P/Bld) [Vol rate/Area] mL/min/{1.73_m2} [facility] Comment on above: Order Comment: PT IS FASTING Performed By: #### C MP #### [facility] [address] [place] [address] [place] Globulin (S) [Mass/Vol] 1.7 g/dL [facility] Comment on above: Order Comment: PT IS FASTING Performed By: #### C MP #### [address] Glucose [Mass/Vol] 93 mg/dL Normal 70-100 [facility] Comment on above: Order Comment: PT IS FASTING Result Comment: [facility] Glucose Reference Range is dependent on time and content of last meal. Glucose of more than 200 mg/dL in a nonstressed, ambulatory subject supports the diagnosis of Diabetes Mellitus. ADA recommended reference range Performed By: #### C MP #### [facility] [address] Potassium [Moles/Vol] 4.4 mmol/L Normal 3.5-5.1 [facility] Comment on above: Order Comment: PT IS FASTING Performed By: #### C MP #### [facility] [address] [place] [id number] [place] Protein [Mass/Vol] 6.1 g/dL Low 6.4-8.9 [facility] Comment on above: Order Comment: PT IS FASTING Performed By: #### C MP #### [facility] [address] Sodium [Moles/Vol] 138 mmol/L Normal 136-145 [facility] Comment on above: Order Comment: PT IS FASTING Performed By: #### C MP #### [facility] [address] [place] [address] [place] Urea nitrogen [Mass/Vol] 15 mg/dL Normal 7-25 [facility] Comment on above: Order Comment: PT IS FASTING Performed By: #### C MP #### [facility] [address] [place] [address] [place] Creatinine [Mass/volume] in Serum or PlasmaOrdered By: Sera Flower on 02-05-2023 Creatinine [Mass/Vol] 1.00 mg/dL 0.70-1.30 [facility] E[facility] echo transthoracicon [facility] echo transthoracic [facility] Main [place] [address] [place] [address] Echocardiogram Signed Patient: Demarcus Panchal MR#: [id number] : 1955 Acct:[id number] Age/Sex: 68 / M ADM Date: 02/05/23 Loc: Room: Type: [facility] Attending Dr: Rene Castro MD Ordering Provider: Rene Castro MD, [facility] Date of Service: 02/05/23/ [facility] echo transthoracic: HTN, ISCHEMIC CARDIOMYOPATHY Copies to: Rene Castro MD, [facility] BSA: 2.2 m2 BP: 141/82 mmHg HR: 53 Reason For Study: HTN, ISCHEMIC CARDIOMYOPATHY History: HTN, HLD, Former Smoker, [place], 5 Stents, Asthma, Emphysema, COVID Interpretation Summary [...] 02/05/23 1042 Signed By: Rene Castro MD, [facility] 02/05/23 1207 Normal [facility] Globulin Calc (S) [Mass/Vol] Ordered By: Sera Flower on 02-05-2023 Globulin (S) [Mass/Vol] 1.7 g/dL [facility] Glucose [Mass/volume] in Ser um or PlasmaOrdered By: Sera Flower on 02-05-2023 Glucose [Mass/Vol] 93 mg/dL 70-100 [facility] Comment on above: ADA recommended refe rence rangeRandom Glucose Reference Range is dependent on time and content of last meal. Glucose of more than 200 mg/dL in a nonstressed, ambulatory subject supports the diagnosis of Diabetes Mellitus. No Panel InformationOrdered By: Sera Flower on 02-05-2023 Estimated GFR (CKD-EPI) > 60.0 mL/Min [facility] Creatinine Clearance (Chem N/A [facility] No Panel Informationon 02-05 [facility] Work Phone: Potassium [Moles/volume] in Serum or PlasmaOrdered By: Sera Flower on 02-05-2023 Potassium [Moles/Vol] 4.4 mmol/L 3.5-5.1 [facility] Protein [Mass/volume] in Ser um or PlasmaOrdered By: Sera Flower on 02-05-2023 Protein [Mass/Vol] 6.1 g/dL 6.4-8.9 [facility] Serum or plasma albumin/glob ulin mass ratioOrdered By: Sera Flower on 02-05-2023 Albumin/Globulin [Mass ratio] 2.6 {ratio} [facility] Serum or plasma anion gap de terminationOrdered By: Sera Flower on 02-05-2023 Anion gap [Moles/Vol] 11.4 mmol/L 6.0-15.0 [facility] Sodium [Moles/volume] in Ser um or PlasmaOrdered By: Sera Flower on 02-05-2023 Sodium [Moles/Vol] 138 mmol/L 136-145 [facility] Urea nitrogen [Mass/volume] in Serum or PlasmaOrdered By: Sera Flower on 02-05-2023 Urea nitrogen [Mass/Vol] 15 mg/dL 7 [facility] CARDIAC STRESS/REST INJE CTIONon 01-03-2023 [facility] CARDIAC STRESS/REST INJECTION Patient Name: DEMARCUS PANCHAL STUDY: MYOCARDIAL PERFUSION STRESS TEST WITH LEXISCAN Performing facility: [facility], [address] [place] [address], [address], [address] Provider: Rene Castro MD, [facility] PCP: Dr. Hunter Flower Supervising provider: Danna Davis DO, [facility] INDICATION: CAD; HTN Hyperlipidemia Ischemic cardiomyopathy HISTORY: Gender: M; Age: 68 y/o ; Height: 172.72 cm; Weight: 406.0767478 kg. CAD; High Cholesterol; HTN; Quit smoking 38 years ago. Cardiac catheterization on 2009. PTCA on 2009. COMPARISON: Previous nuclear testing completed at [facility]. ACCESSION NUMBER(S): [id number]; [id number]; [id number] ORDERING CLINICIAN: RENE CASTRO TECHNIQUE: TWO DAY [...] Electronically signed by: RENE CASTRO MD Normal [facility] No Panel Informationon 01-03 Normal -[facility] Heart-AngioSlide daniel 250 DO Work Phone: Office Visit [...] Oral Tablet Tobacco Use Screening; Status:Complete; Done: [id number] Unlinked Stop: hydroCHLOROthiazide 25 MG Oral Tablet [...] emphasis on low-calorie diet Rene Castro MD, [facility] Surgical History Problems History of Coronary [...] No a (more content not included)... Normal [facility] Tobacco Screening.on Adult depression screening assessment No [facility]iol[facility]-Terrell 250 DO Work Phone: Fall risk assessment a) No falls within the last year [facility]-[place] 250 DO Work Phone: Tobacco use status CP b) No [facility]-[place] 250 DO Work Phone: MRI Soft Tissue [...] by Ethan Walsh on 07/16/2022 1246 Normal [facility] [employer] MRI Brain w/o + w/on 023 MRI [...] by Sean Trejo on 07/01/2022 0911 Normal [facility] Shaquille [facility]20[facility] KVNGDEMARCUS Garcia ([id number]) 1955 Date Time Provider Department 06/21/22 DEANDRA BENDER During your visit today, we recorded the following information about you: Delores Mccollum 06/21/2022 12:54 PM Signed [facility] called today. : 1955 Allergies: Codeine, Codeine-Guaifenesin, and Guaifenesin (home) [phone] (cell) Reason for call: Sasha F:[phone] Asking for the MRI orders and office notes to be faxed over to [facility]. Patient will be having them done there. Patient last appointment: Visit date not found The patients preferred pharmacy has been captured for this encounter? not asked Delores Mccollum [facility] 06/21/2022 2:03 PM Signed Notes and MRI [...] Status:Closed by ORQUIDEA SIBLEY on 06/21/22 Normal [facility] XR Ribs w/ PA Chest Left*on [...] by Ethan Walsh on 03/13/2022 1254 Normal [facility] XR Chest 2 Views*on 01-18-20 22 XR Chest 2 Views* COMPARISON: none TECHNIQUE: Upright PA and lateral views of the chest were obtained. FINDINGS: Heart is normal in size. Lungs are clear and well expanded. No pleural effusion or pneumothorax. The bony thorax is unremarkable. IMPRESSION: NO ACUTE CARDIOPULMONARY ABNORMALITY. Report reported and signed by AMALIA LOGAN on 01/17/2022 1243 Normal [facility] [employer] [facility] Tobacco Screening.on 022 Adult depression screening assessment No [facility] [employer]-Raina daniel 250 DO Work Phone: Fall risk assessment a) No falls within the last year [facility] Johnny daniel 250 DO Work Phone: Tobacco use status [facility] b) No [facility] Heart-Raina daniel 250 DO Work Phone: CT [...] by AMALIA LOGAN on 08/04/2021 1346 Normal [facility] Complete Blood Count with Au to Diffon 07-29-2021 Basophils (Bld) [#/Vol] 0.05 10*3/uL Normal 0.00-0.20 [facility] [employer] [facility] Comment on above: Performed By: #### C MP, CBCAD #### [facility] [address] [place], [place] [id number] Basophils/100 WBC (Bld) 0.8 % Normal [facility] Comment on above: Performed By: #### C MP, CBCAD #### [facility] [address] [place], [place] [id number] Eosinophils (Bld) [#/Vol] 0.46 10*3/uL Normal 0.02-0.50 [facility] [employer] [facility] Comment on above: Performed By: #### C MP, CBCAD #### [facility] [address] [place], [place] [id number] Eosinophils/100 WBC (Bld) 7.7 % Normal [facility] Comment on above: Performed By: #### C JOSE ANTONIO, CBCAD #### [facility] [address] [place], [place] [id number] Erythrocyte distribution width (RBC) [Ratio] 13.3 % Normal 11.0-15.0 [facility] Comment on above: Performed By: #### C MP, CBCAD #### [facility] [address] [place], [place] [id number] Hematocrit (Bld) [Volume fraction] 42.2 % Normal 38.5-50.0 [facility] Comment on above: Performed By: #### C MP, CBCAD #### [facility] [address] [place], [place] [id number] Hemoglobin (Bld) [Mass/Vol] 14.5 g/dL Normal 13.0-17.1 [facility] [employer] [facility] Comment on above: Performed By: #### C MP, CBCAD #### [facility] [address] [place], [place] [id number] Lymphocytes (Bld) [#/Vol] 1.6 10*3/uL Normal 0.9-3.9 [facility] [employer] [facility] Comment on above: Performed By: #### C MP, CBCAD #### [facility] [address] [place], [place] [id number] Lymphocytes/100 WBC (Bld) 26.1 % Normal [facility] Comment on above: Performed By: #### C MP, CBCAD #### [facility] [address] [place], [place] [id number] MCH (RBC) [Entitic mass] 29.7 pg Normal 27.0-33.0 [facility] Comment on above: Performed By: #### C MP, CBCAD #### [facility] [address] [place], [place] [id number] MCHC (RBC) [Mass/Vol] 34.4 g/dL Normal 32.0-36.0 [facility] Comment on above: Performed By: #### C MP, CBCAD #### [facility] [address] [place], [place] [id number] MCV (RBC) [Entitic vol] 86 fL Normal 80-100 [facility] Comment on above: Performed By: #### C MP, CBCAD #### [facility] [address] [place], [place] [id number] Monocytes (Bld) [#/Vol] 0.9 10*3/uL Normal 0.2-0.9 [facility] Comment on above: Performed By: #### C MP, CBCAD #### [facility] [address] [place], [place] [id number] Monocytes/100 WBC (Bld) 14.6 % Normal [facility] Comment on above: Performed By: #### C MP, CBCAD #### [facility] [address] [place], [place] [id number] Neutrophils (Bld) [#/Vol] 3.0 10*3/uL Normal 1.5-7.8 [facility] Comment on above: Performed By: #### C MP, CBCAD #### [facility] [address] [place], [place] [id number] Neutrophils/100 WBC (Bld) 50.5 % Normal [facility] Comment on above: Performed By: #### C MP, CBCAD #### [facility] [address] [place], [place] [id number] Platelet mean volume (Bld) [Entitic vol] 10.90 fL Normal 7.50-12.50 [facility] Comment on above: Performed By: #### C MP, CBCAD #### [facility] [address] [place], [place] [id number] Platelets (Bld) [#/Vol] 166 10*3/uL Normal 140-400 [facility] Comment on above: Performed By: #### C MP, CBCAD #### [facility] [address] [place], [place] [id number] RBC (Bld) [#/Vol] 4.89 10*6/uL Normal 4.20-5.80 [facility] Comment on above: Performed By: #### C MP, CBCAD #### [facility] [address] [place], [place] [id number] RDW-SD 41.2 fL Normal 37.0-50.0 [facility] Comment on above: Performed By: #### C MP, CBCAD #### [facility] [address] [place], [place] [id number] WBC (Bld) [#/Vol] 5.9 10*3/uL Normal 3.8-11.0 [facility] Comment on above: Performed By: #### C MP, CBCAD #### [facility] [address] [place], [place] [id number] Comprehensive Metabolic Pane [facility] 07-29-2021 Albumin [Mass/Vol] 4.6 g/dL Normal 3.6-5.1 [facility] [facility] Comment on above: Performed By: #### C MP, CBCAD #### [facility] [address] [place], [place] [id number] Albumin/Globulin [Mass ratio] 2.7 {ratio} High 1.0-2.5 [facility] Comment on above: Performed By: #### C MP, CBCAD #### [facility] [address] [place], [place] [id number] ALP [Catalytic activity/Vol] 74 U/L Normal 40-129 [facility] Comment on above: Performed By: #### C MP, CBCAD #### [facility] [address] [place], [place] [id number] ALT [Catalytic activity/Vol] 55 U/L High 9-46 [facility] Comment on above: Result Comment: 04/27 Female reference range changed. Performed By: #### C MP, CBCAD #### [facility] [address] [place], [place] [id number] Anion gap [Moles/Vol] 16 mmol/L Normal 12-20 [facility] Comment on above: Result Comment: Effe ctive 06/02/2019 reference range changed. Performed By: #### C MP, CBCAD #### [facility] [address] [place], [place] [id number] AST [Catalytic activity/Vol] 39 U/L Normal 10-40 [facility] Comment on above: Performed By: #### C MP, CBCAD #### [facility] [address] [place], [place] [id number] BUN/CREA 13 Ratio Normal 6-22 [facility] Comment on above: Performed By: #### C MP, CBCAD #### [facility] [address] [place], [place] [id number] Calcium [Mass/Vol] 9.0 mg/dL Normal 8.6-10.[address] [facility] Comment on above: Performed By: #### C MP, CBCAD #### [facility] [address] [place], [place] [id number] Chloride [Moles/Vol] 107 mmol/L Normal 98-107 [facility] Comment on above: Performed By: #### C MP, CBCAD #### [facility] [address] [place], [place] [id number] CO2 [Moles/Vol] 20 mmol/L Normal 20-31 [facility] Comment on above: Performed By: #### C MP, CBCAD #### [facility] [address] [place], [place] [id number] Creatinine [Mass/Vol] 1.0 mg/dL Normal 0.7-1.4 [facility] Comment on above: Performed By: #### C MP, CBCAD #### [facility] [address] [place], [place] [id number] eGFRAA 94 mL/min/1.73m2 Normal >60 [facility] Comment on above: Performed By: #### C MP, CBCAD #### [facility] [address] [place], [place] [id number] eGFRNAA 78 mL/min/1.73m2 Normal >60 [facility] Comment on above: Performed By: #### C MP, CBCAD #### [facility] [address] [place], [place] [id number] Globulin (S) [Mass/Vol] 1.7 g/dL Low 1.9-3.7 [facility] Comment on above: Performed By: #### C MP, CBCAD #### [facility] [address] [place], [place] [id number] Glucose [Mass/Vol] 121 mg/dL High 65-99 [facility] Comment on above: Result Comment: For FASTING Glucose --- ADA reference ranges: Normal 65-99 mg/dl Prediabetes 100-125 Diabetes >/= 126 Performed By: #### C JOSE ANTONIO, CBCAD #### [facility] [address] [place], [place] [id number] Potassium [Moles/Vol] 4.2 mmol/L Normal 3.5-5.5 [facility] Comment on above: Performed By: #### C JOSE ANTONIO, CBCAD #### [facility] [address] [place], [place] [id number] Protein [Mass/Vol] 6.3 g/dL Normal 6.1-8.1 [facility] Comment on above: Performed By: #### C JOSE ANTONIO, CBCAD #### [facility] [address] [place], [place] [id number] Sodium [Moles/Vol] 139 mmol/L Normal 135-146 [facility] Comment on above: Performed By: #### C JOSE ANTONIO, CBCAD #### [facility] [address] [place], [place] [id number] TBIL <0.3 Normal [facility] Comment on above: Performed By: #### C MP, CBCAD #### [facility] [address] [place], [place] [id number] Urea nitrogen [Mass/Vol] 12 mg/dL Normal 7-25 [facility] [facility] Comment on above: Performed By: #### C MP, CBCAD #### [facility] [address] [place], [place] [id number] Microalbumin (with Creat)on 07-29-2021 mALB <1.2 Low [facility] Comment on above: Result Comment: Unab le to calculate mALB/Crea ratio, mALB is <1.2 mg/dL mALB reference range not established. Performed By: #### m ALBC #### [facility] [address] [place], [place] [id number] UCREA 85 mg/dL Normal 39-259 [facility] Comment on above: Performed By: #### m ALBC #### [facility] [address] [place], [place] [id number] Prostatic Specific Antigen, Totalon 07-29-2021 TPSA 2.330 ng/mL Normal <4.000 [facility] Comment on above: Result Comment: PSA Test Method: ECLIA/Brandi e 601 Performed By: #### P SA #### [facility] [address] [place], [place] [id number] Q - URINALYSIS,COMPLETEon Appearance (U) CLEAR Normal CLEAR [facility] Comment on above: Order Comment: [facility] Testing performed at: [email or web address], [address], [address] [place] [address], [id number], Prn Physical Therapist: Rafi Agustin MD [facility] Collection Date/Time: [facility] Results Received Date/Time: [facility] Reported Date/Time: Performed By: #### 3 4F #### [facility] Default [address] [place] [address] BACTERIA NONE SEEN Normal NONE SEEN [facility] [facility] Comment on above: Order Comment: [facility] Testing performed at: [email or web address], [address] , [address] [place] [address], [id number], Prn Physical Therapist: Rafi Agustin MD [facility] Date/Time: [facility] Results Received Date/Time: [facility] Reported Date/Time: Performed By: #### 3 4F #### [facility] [address] [place] [address] Bilirubin Ql (U) Negative Normal NEGATIVE [facility] Comment on above: Order Comment: [facility] Testing performed at: [email or web address], [email or web address] [facility], [address] , [address] [place] [address], [address] [place] [address], Prn Physical Therapist: Rafi Agustin MD [facility] Date/Time: [facility] Results Received Date/Time: [facility] Reported Date/Time: Performed By: #### 3 4F #### [facility] [address] [place] [address] Color (U) YELLOW Normal YELLOW [facility] [facility] Comment on above: Order Comment: [facility] performed at: [facility], [employer] [facility], [address] , [address] [place] [address], [address] [place] [address], Prn Physical Therapist: Rafi Agustin MD [facility] Date/Time: [facility] Results Received Date/Time: [facility] Reported Date/Time: Performed By: #### 3 4F #### [facility] [address] [place] [address] Glucose Ql (U) Negative Normal NEGATIVE [facility] Comment on above: Order Comment: [facility] performed at: [email or web address], [email or web address] [facility], [address] , [address] [place] [address], [address] [place] [address], Prn Physical Therapist: Rafi Agustin MD [facility] Date/Time: [facility] Results Received Date/Time: [facility] Reported Date/Time: Performed By: #### 3 4F #### [facility] [address] [place] [address] HYALINE CAST NONE SEEN Normal NONE SEEN [facility] [employer] Comment on above: Order Comment: [facility] Testing performed at: [employer], [employer] [facility], [address] [facility], [address] [place] [address], [address] [place] [address], Prn Physical Therapist: Rafi Agustin MD [facility] Date/Time: [facility] Results Received Date/Time: [facility] Reported Date/Time: Performed By: #### 3 4F #### [facility] [address] [place] [address] Ketones Ql (U) Negative Normal NEGATIVE [facility] Comment on above: Order Comment: [facility] Testing performed at: [employer], [employer] [facility], [address] [facility], [address] [place] [address], [address] [place] [address], Prn Physical Therapist: Rafi Agustin MD [facility] Date/Time: [facility] Results Received Date/Time: [facility] Reported Date/Time: Performed By: #### 3 4F #### [facility] Default [address] [place] [address] Leukocyte esterase Test strip Ql (U) Negative Normal NEGATIVE [facility] Specialist Comment on above: Order Comment: [facility] Testing performed at: [facility], [facility], [address] [facility], [address] [place] [address], [address] [place] [address], Prn Physical Therapist: Rafi Agustin MD [facility] Collection Date/Time: [facility] Results Received Date/Time: [facility] Reported Date/Time: Performed By: #### 3 4F #### [facility] Default [address] [place] [address] Nitrite Ql (U) Negative Normal NEGATIVE [facility] Specialist Comment on above: Order Comment: [facility] Testing performed at: [facility], [facility] [facility], [address] [facility], [address] [place] [address], [address] [place] [address], Prn Physical Therapist: Rafi Agustin MD [facility] Collection Date/Time: [facility] Results Received Date/Time: [facility] Reported Date/Time: Performed By: #### 3 4F #### [facility] Default [address] [place] [address] OCCULT BLOOD Negative Normal NEGATIVE [facility] [employer] Comment on above: Order Comment: [facility] Testing performed at: [facility], [facility] [facility], [address] [place] [address], [address] [place] [address], [address] [place] [address], Prn Physical Therapist: Rafi Agustin MD [facility] Collection Date/Time: [facility] Results Received Date/Time: [facility] Reported Date/Time: Performed By: #### 3 4F #### [facility] Default [address] [place] [address] pH (U) 6.5 [pH] Normal 5.0-8.0 [facility] [employer] Comment on above: Order Comment: [facility] Testing performed at: [facility], [facility], [address] [facility], [address] [place] [address], [address] [place] [address], Prn Physical Therapist: Rafi Agustin MD [facility] Collection Date/Time: [facility] Results Received Date/Time: [facility] Reported Date/Time: Performed By: #### 3 4F #### [facility] Default [address] [place] [address] Protein Ql (U) Negative Normal NEGATIVE [facility] [employer] Comment on above: Order Comment: [facility] Testing performed at: [facility], [facility] [facility], [address] [facility], [address] [place] [address], [address] [place] [address], Prn Physical Therapist: Rafi Agustin MD [facility] Collection Date/Time: [facility] Results Received Date/Time: [facility] Reported Date/Time: Performed By: #### 3 4F #### [facility] Default [address] [place] [address] RBC NONE SEEN Normal < OR = 2 [facility] [employer] Comment on above: Order Comment: [facility] Testing performed at: [facility], [facility], [address] [facility], [address] [place] [address], [address] [place] [address], Prn Physical Therapist: Rafi Agustin MD [facility] Collection Date/Time: [facility] Results Received Date/Time: [facility] Reported Date/Time: Performed By: #### 3 4F #### [facility] Default [address] [place] [address] Specific gravity (U) [Rel density] 1.012 Normal 1.001-1.035 [facility] [employer] Comment on above: Order Comment: [facility] Testing performed at: [facility], [facility], [address] [facility], [address] [place] [address], [address] [place] [address], Prn Physical Therapist: Rafi Agustin MD [facility] Collection Date/Time: [facility] Results Received Date/Time: [facility] Reported Date/Time: Performed By: #### 3 4F #### [facility] Default [address] [place] [address] SQUAMOUS EPITHELIAL CELLS NONE SEEN Normal < OR = 5 [facility] [employer] Comment on above: Order Comment: [facility] Testing performed at: [facility], [facility], [address] [facility], [address] [place] [address], [address] [place] [address], Prn Physical Therapist: Rafi Agustin MD [facility] Collection Date/Time: [facility] Results Received Date/Time: [facility] Reported Date/Time: Performed By: #### 3 4F #### [facility] Default [address] [place] [address] WBC NONE SEEN Normal < OR = 5 [facility] Specialist Comment on above: Order Comment: [facility] Testing performed at: [facility], [facility] [facility], [address] [facility], [address] [place] [address], [address] [place] [address], Prn Physical Therapist: Rafi Agustin MD [facility] Collection Date/Time: [facility] Results Received Date/Time: [facility] Reported Date/Time: Performed By: #### 3 4F #### [facility] Default [address] [place] [address] No Panel Information [facility] Vital Signs Date Time Vital Sign Value Performing Clinician Facility 10-18-2023 09:25-0400 Body height 172.7 cm Rene Castro MD Work Phone: [facility] 10-18-2023 09:25-0400 Body mass index (BMI) [Ratio] 36.31 kg/m2 Rene Castro MD Work Phone: [facility] 10-18-2023 09:25-0400 Body weight 108.32 kg Rene Castro MD Work Phone: [facility] 10-18-2023 09:25-0400 Diastolic blood pressure 76 mm[Hg] Rene Castro MD Work Phone: [facility] 10-18-2023 09:25-0400 Heart rate 68 /min Rene Castro MD Work Phone: [facility] 10-18-2023 09:25-0400 Systolic blood pressure 120 mm[Hg] Rene Castro MD Work Phone: [facility] 06-30-2023 10:23-0500 Body mass index (BMI) [Ratio] 35.28 kg/m2 Hosea Sifuentes DO Work Phone: [facility] 06-30-2023 10:23-0500 Body temperature 97.81 [degF] Hosea Sifuentes DO Work Phone: [facility] 06-30-2023 10:23-0500 Body weight 105.23 kg Hosea Sifuentes DO Work Phone: [facility] 06-30-2023 10:23-0500 Diastolic blood pressure 82 mm[Hg] Hosea Sifuentes DO Work Phone: [facility] 06-30-2023 10:23-0500 Heart rate 86 /min Hosea Sifuentes DO Work Phone: [facility] 06-30-2023 10:23-0500 Respiratory rate 18 /min Hosea Sifuentes DO Work Phone: [facility] 06-30-2023 10:23-0500 SaO2% (BldA) [Mass fraction] 94 % Hosea Sifuentes DO Work Phone: [facility] 06-30-2023 10:23-0500 Systolic blood pressure 138 mm[Hg] Hosea Sifuentes Work Phone: [facility] 06-14-2023 14:25-0500 Body temperature 97.7 [degF] MD Sera Flower Work Phone: [facility] 06-14-2023 14:25-0500 Diastolic blood pressure 74 mm[Hg] MD Sera Flower Work Phone: [facility] 06-14-2023 14:25-0500 Heart rate 78 /min MD Sera Flower Work Phone: [facility] 06-14-2023 14:25-0500 Respiratory rate 20 /min MD Sera Flower Work Phone: [facility] 06-14-2023 14:25-0500 SaO2% (BldA) [Mass fraction] 95 % MD Sera Flower Work Phone: [facility] 06-14-2023 14:25-0500 Systolic blood pressure 155 mm[Hg] MD Sera Flower Work Phone: [facility] 06-14-2023 11:48-0500 Body height 172.72 cm MD Sera Flower Work Phone: [facility] 06-14-2023 11:48-0500 Body weight 108.9 kg MD Sera Flower Work Phone: [facility] 03-23-2023 09:34-0400 Body height 172.7 cm Rene Castro MD Work Phone: [facility] 03-23-2023 09:34-0400 Body mass index (BMI) [Ratio] 35.12 kg/m2 Rene Castro MD Work Phone: [facility] 03-23-2023 09:34-0400 Body weight 104.78 kg Rene Castro MD Work Phone: [facility] 03-23-2023 09:34-0400 Diastolic blood pressure 72 mm[Hg] Rene Castro MD Work Phone: [facility] 03-23-2023 09:34-0400 Heart rate 60 /min Rene Castro MD Work Phone: [facility] 03-23-2023 09:34-0400 Systolic blood pressure 128 mm[Hg] Rene Castro MD Work Phone: [facility] 09-07-2022 11:31-0400 Body height 172.72 cm Sera Flower Work Phone: NN-Krtwseiaul-Zqpfn daniel 250 DO Work Phone: 09-07-2022 11:31-0400 Body mass index (BMI) [Ratio] 36.8 kg/m2 Sera Flower Work Phone: BG-Fvkgmklpip-Pmrdi daniel 250 DO Work Phone: 09-07-2022 11:31-0400 Body surface area Derived from formula 2.22 m2 Sera Flower Work Phone: FF-Jkfvkgjvdj-Ppjmy daniel 250 DO Work Phone: 09-07-2022 11:31-0400 Body weight 109.77 kg Sera Flower Work Phone: TE-Imjwrqdqzr-Lzrgw daniel 250 DO Work Phone: 09-07-2022 11:31-0400 Diastolic blood pressure 68 mm[Hg] Sera Flower Work Phone: PS-Wkslidwoac-Tzlkq daniel 250 DO Work Phone: 09-07-2022 11:31-0400 Heart rate 76 /min Sera Flower Work Phone: GY-Pfaazkzdeu-Rpgju daniel 250 DO Work Phone: 09-07-2022 11:31-0400 Systolic blood pressure 124 mm[Hg] Sera Flower Work Phone: OJ-Fuchzauiud-Cgozx daniel 250 DO Work Phone: 09-05-2021 14:04-0400 Body height 172.72 cm Sera Flower Work Phone: [facility] 250 DO Work Phone: 09-05-2021 14:04-0400 Body mass index (BMI) [Ratio] 36.49 kg/m2 Sera Flower Work Phone: [facility] 250 DO Work Phone: 09-05-2021 14:04-0400 Body surface area Derived from formula 2.21 m2 Sera Flower Work Phone: [facility] 250 DO Work Phone: 09-05-2021 14:04-0400 Body weight 108.86 kg Sera Flower Work Phone: [facility] 250 DO Work Phone: 09-05-2021 14:04-0400 Diastolic blood pressure 82 mm[Hg] Sera Flower Work Phone: [facility] 250 DO Work Phone: 09-05-2021 14:04-0400 Heart rate 70 /min Sera Flower Work Phone: [facility] 250 DO Work Phone: 09-05-2021 14:04-0400 Systolic blood pressure 132 mm[Hg] Sera Flower Work Phone: [facility] 250 DO Work Phone: Encounters Encounter Date Encounter Type Care Provider Facility Start: 10-18-2023 End: 10-18-2023 ambulatory RENE CASTRO [facility] Ambulatory Start: 10-18-2023 End: 10-18-2023 Office outpatient visit 25 minutes Rene Castro MD Work Phone: [facility] Comment on above: Coronary artery dise ase involving ambler coronary artery of ambler heart without angina pectoris (Primary Dx); Essential [...] 25 minutes Hosea Sifuentes DO Work Phone: [facility] Comment on above: Acute exacerbation o f chronic obstructive pulmonary disease (CMS/HCC) (Primary Dx) Start: 06-27-2023 End: 06-27-2023 ambulatory SERA FLOWER Not Available Start: 06-14-2023 End: 06-14-2023 Emergency department patient visit Jasper Martinez Facility:[facility] Start: 06-14-2023 End: 06-14-2023 ambulatory RENZO WEAVER Not Available Start: 06-14-2023 End: 06-14-2023 Emergency department patient visit MD Sera Flower Work Phone: [facility] Work Phone: Start: 05-19-2023 End: 05-19-2023 ambulatory BRITTANY FIGUEROA Not Available Start: 03-23-2023 End: 03-23-2023 ambulatory RENE Porter [facility] Start: 03-23-2023 End: 03-23-2023 Office outpatient visit 25 minutes Rene Castro MD Work Phone: [facility] Comment on above: Coronary artery dise ase involving ambler coronary artery of ambler heart without angina pectoris; Essential hypertension; Mixed hyperlipidemia; Ischemic cardiomyopathy; Status post coronary artery stent placement; Class 2 obesity with body mass index (BMI) of 35.0 to 35.9 in adult, unspecified obesity type, unspecified whether serious comorbidity present Start: 02-06-2023 Other Sera Flower Work Phone: [facility] 250 DO Work Phone: Start: 02-05-2023 End: 02-05-2023 ambulatory Rene Castro Facility:[facility] Start: 02-05-2023 End: 02-05-2023 ambulatory MD Sera Flower Work Phone: [facility] Work Phone: Start: 02-05-2023 End: 02-05-2023 Patient encounter procedure MD Sera Flower Work Phone: [facility]Electrodiagnostics Work Phone: Start: 02-05-[address] Sera Flower Facility:[id number] Start: 01-30-2023 AUDIT Sera Flower Work Phone: [facility] 600 DO Work Phone: Start: 01-15-2023 Other Sera Flower Work Phone: [facility] 250 DO Work Phone: Start: 01-12-2023 Chart Update Sera Flower Work Phone: [facility] 250 DO Work Phone: Start: 01-04-[address] Sera Flower Facility:[id number] Start: 01-03-[address] Sera Flower Facility:[id number] Start: 11-14-2022 End: 11-14-2022 ambulatory DEANDRA BENDER Facility:[facility] Start: 11-14-2022 End: 11-14-2022 Patient encounter procedure Deandra Bender MD Work Phone: Ophthalmology Comment on above: Clonic hemifacial sp asm, right (Primary Dx) Start: 09-07-2022 Office outpatient vi sit 25 minutes Sera Flower Work Phone: TJ-Uyhbbwjqfo-Ghfqfkqc 250 DO Work Phone: Start: 09-07-2022 ambulatory Rene Castro Facility : Start: 08-08-2022 End: 08-08-2022 ambulatory DEANDRA BENDER Facility:[facility] Start: 08-08-2022 End: 08-08-2022 Patient encounter procedure Deandra Bender MD Work Phone: Ophthalmology Comment on above: Clonic hemifacial sp asm, right (Primary Dx) Start: 06-21-2022 Telephone encounter Deandra Bender MD Work Phone: [facility] [place] Comment on above: Orders Start: 06-21-2022 End: 06-21-2022 ambulatory DEANDRA BENDER Facility:[facility] Start: 06-21-2022 End: 06-21-2022 Patient encounter procedure Deandra Bender MD Work Phone: Ophthalmology Comment on above: Clonic hemifacial sp asm, right (Primary Dx); Paralytic strabismus; Jada's syndrome Start: 05-01-2022 End: 05-01-2022 ambulatory MAU RANDLE Facility:[facility] Start: 05-01-2022 End: 05-01-2022 Patient encounter procedure Mau Randle OD Work Phone: Ophthalmology Comment on above: Eyelid myokymia (Velma maren Dx); Dry eye syndrome of both eyes; Hyperopia of both eyes with astigmatism and presbyopia Start: 09-05-2021 Office outpatient vi sit 25 minutes Sera Flower Work Phone: 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 Work Phone: Start: 07-28-2019 Colonoscopy Hosea Sifuentes [...] 07-27-2029 Screening for malignant neoplasm of colon [facility] Start: 09-13-2028 Lipid panel Lipid Panel [facility] Start: 08-11-2027 DTaP/Tdap/Td Vaccines (2 - Td or Tdap) DTaP/Tdap/Td Vaccines (2 - Td or Tdap) [facility] Start: 05-15-2024 End: 05-15-2024 Patient encounter procedure 05/15/2024 9:10 AM EST Office Visit [facility] [address] [place] [address] Rene Castro MD [address] [place] [address] [facility] Start: 03-20-2024 Echocardiography Echocardiogram [facility] Start: 01-27-2024 Influenza vaccination Influenza Vaccine (Season Ended) [facility] Start: 10-18-2023 End: 10-18-2023 Patient encounter procedure 10/18/2023 9:30 AM EDT Office Visit [facility] [address] [place] [address] Rene Castro MD [address] [place] [address] [facility] Start: 09-20-2023 End: 09-20-2023 Patient encounter procedure 09/20/2023 1:00 PM EDT Office Visit [facility] [address] [place] [id number] Sera Flower MD [address] [place] [address] [facility] Start: 03-23-2023 End: 03-23-2024 Alanine aminotransferase [Enzymatic activity/volume] in Serum or Plasma by With P-5'-P Alanine Aminotransferase Lab Routine Coronary artery disease involving ambler coronary artery of ambler heart without angina pectoris Essential hypertension Mixed hyperlipidemia Ischemic cardiomyopathy Status post coronary artery stent placement Class 2 obesity with body mass index (BMI) of 35.0 to 35.9 in adult, unspecified obesity type, unspecified whether serious comorbidity present Expected: 03/23/2023 (Approximate), Expires: 03/23/2024 [facility] Work Phone: Comment on above: Expected: 03/23/2023 (Approximate), Expi res: 03/23/2024 Start: 03-23-2023 End: 03-23-2024 Aspartate aminotransferase [Enzymatic activity/volume] in Serum or Plasma by With P-5'-P Aspartate Aminotransferase Lab Routine Coronary artery disease involving ambler coronary artery of ambler heart without angina pectoris Essential hypertension Mixed hyperlipidemia Ischemic cardiomyopathy Status post coronary artery stent placement Class 2 obesity with body mass index (BMI) of 35.0 to 35.9 in adult, unspecified obesity type, unspecified whether serious comorbidity present Expected: 03/23/2023 (Approximate), Expires: 03/23/2024 [facility] Work Phone: Comment on above: Expected: 03/23/2023 (Approximate), Expi res: 03/23/2024 Start: 03-23-2023 End: 03-23-2024 Basic metabolic 2000 panel - Serum or Plasma Basic Metabolic Panel Lab Routine Coronary artery disease involving ambler coronary artery of ambler heart without angina pectoris Essential hypertension Mixed hyperlipidemia Ischemic cardiomyopathy Status post coronary artery stent placement Class 2 obesity with body mass index (BMI) of 35.0 to 35.9 in adult, unspecified obesity type, unspecified whether serious comorbidity present Expected: 03/23/2023 (Approximate), Expires: 03/23/2024 [facility] Work Phone: Comment on above: Expected: 03/23/2023 (Approximate), Expi res: 03/23/2024 Start: 03-23-2023 End: 03-23-2024 CBC panel - Blood by Automated count CBC Lab Routine Coronary artery disease involving ambler coronary artery of ambler heart without angina pectoris Essential hypertension Mixed hyperlipidemia Ischemic cardiomyopathy Status post coronary artery stent placement Class 2 obesity with body mass index (BMI) of 35.0 to 35.9 in adult, unspecified obesity type, unspecified whether serious comorbidity present Expected: 03/23/2023 (Approximate), Expires: 03/23/2024 [facility] Service Area Work Phone: Comment on above: Expected: 03/23/2023 (Approximate), Expi res: 03/23/2024 Start: 03-23-2023 End: 03-23-2024 Lipid 1996 panel - Serum or Plasma Lipid Panel Lab Routine Coronary artery disease involving ambler coronary artery of ambler heart without angina pectoris Essential hypertension Mixed hyperlipidemia Ischemic cardiomyopathy Status post coronary artery stent placement Class 2 obesity with body mass index (BMI) of 35.0 to 35.9 in adult, unspecified obesity type, unspecified whether serious comorbidity present Expected: 03/23/2023 (Approximate), Expires: 03/23/2024 [facility] Work Phone: Comment on above: Expected: 03/23/2023 (Approximate), Expi res: 03/23/2024 Start: 03-15-2023 FUV, Provider: Rene Castro, Status: Pen, Time: 9:20 AM FUV, Provider: Rene Castro, Status: Pen, Time: 9:20 AM [facility] daniel 250 DO Work Phone: Start: 01-26-2023 COVID-19 Vaccine ( season) COVID-19 Vaccine () [facility] Start: 01-26-2023 Influenza vaccination [facility] Start: 09-07-2022 FUV, Provider: Rene Castro, Status: Pen, Time: 8:30 AM FUV, Provider: Rene Castro, Status: Pen, Time: 8:30 AM [facility] 250 DO Work Phone: Start: 05-28-2022 ADVANCE DIRECTIVE DISCUSSION ADVANCE DIRECTIVE DISCUSSION [facility] Start: 05-28-2022 DEPRESSION ASSESSMENT DEPRESSION ASSESSMENT [facility] Start: 01-26-2022 Influenza vaccination INFLUENZA (#1) [facility] Start: 05-28-2021 ADVANCE DIRECTIVE DISCUSSION ADVANCE DIRECTIVE DISCUSSION [facility] Start: 05-28-2021 DEPRESSION ASSESSMENT DEPRESSION ASSESSMENT [facility] Start: 2018 Abdominal aortic aneurysm screening Abdominal Aortic Aneurysm (AAA) Screening [facility] Start: 2018 PNEUMOCOCCAL: 65+ (1 - PCV) PNEUMOCOCCAL: 65+ (1 - PCV) [facility] Start: 02-15-2017 Zoster Vaccines (2 of 3) Zoster Vaccines (2 of 3) [facility] Start: 2013 RSV patients and/or patients aged 60+ years (1 - 1-dose 60+ series) RSV patients and/or patients aged 60+ years (1 - 1-dose 60+ series) [facility] Start: 2003 SHINGRIX VACCINE (1 of 2) SHINGRIX VACCINE (1 of 2) [facility] Start: 1998 COLOGUARD (FIT-DNA) COLOGUARD (FIT-DNA) [facility] Start: 1998 Colonoscopy COLONOSCOPY [facility] Start: 1998 COLORECTAL CANCER SCREENING COLORECTAL CANCER SCREENING [facility] Start: [address] COLONOGRAPHY [facility] Start: 1998 DIABETES SCREEN DIABETES SCREEN [facility] Start: 1998 FECAL OCCULT BLOOD FECAL OCCULT BLOOD [facility] Start: 1998 SIGMOIDOSCOPY SIGMOIDOSCOPY [facility] Start: 01-02-1988 LIPID SCREEN LIPID SCREEN [facility] Start: 01-02-1972 Urine microalbumin profile DTAP,TDAP,TD (1 - Tdap) [facility] Start: 1971 Diabetes mellitus screening Diabetes Screening [facility] Start: 1971 HEPATITIS C SCREENING HEPATITIS C SCREENING [facility] Start: 1971 Hepatitis C screening Hepatitis C Screening [facility] Start: 1953 COVID-19 VACCINE (#1) COVID-19 VACCINE (#1) [facility] Start: 1953 Creatinine measurement Creatinine Level [facility] Start: 1953 Lipid panel Lipid Panel [facility] Start: 1953 Medicare Annual Wellness Visit Medicare Annual Wellness Visit (AWV) [facility] Start: 1953 Potassium measurement Potassium Level [facility] Start: 1953 Screening for malignant neoplasm of colon [facility] End: 07-21-2023 Mri brain brain stem w/o w/contrast material MRI BRAIN WO/W IVCON Radiology Routine Paralytic strabismus 1 Occurrences starting 06/21/2022 until 07/21/2023 [facility] Work Phone: Comment on above: 1 Occurrences starting 06/21/2022 until 07/21/2023 End: 07-21-2023 Mri orbit face & neck w/o & w/contrast matrl MRI SOFT TISSUE NECK WO/W IVCON Radiology Routine 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 until 07/21/2023 [facility] Work Phone: Comment on above: 1 Occurrences starting 06/21/2022 until 07/21/2023 Patient Education COPD Exacerbat ion, Adult ED [facility] Work Phone: Patient referral [facility] Work Phone: [facility] Immunizations Immunization Date Immunization Notes Care Provider Fa loraine 04-16-2019 Seasonal trivalent influenza vaccine, adjuvanted, preservative free Sera Flower Work Phone: [place] [id number] DO Work Phone: 04-16-2019 influenza virus vacc ine, unspecified formulation Rene Castro MD Work Phone: [facility] Work Phone: 03-28-2019 influenza virus vacc ine, unspecified formulation Sera Flower Work Phone: [place] [address] DO Work Phone: 08-16-2018 influenza, seasonal, injectable, preservative free Sera Flower Work Phone: [place] [address] DO Work Phone: 08-16-2018 pneumococcal conjuga te vaccine, 13 valent Sera Flower Work Phone: [place] [address] DO Work Phone: 05-28-2018 pneumococcal polysaccharide vaccine, 23 valent Sera Flower Work Phone: [place] [address] DO Work Phone: 08-10-2017 tetanus toxoid, redu daniel diphtheria toxoid, and acellular pertussis vaccine, adsorbed Sera Flower Work Phone: [place] [address] DO Work Phone: 12-21-2016 zoster vaccine, live Sera Flower Work Phone: [place] [address] DO Work Phone: 09-30-2012 pneumococcal polysaccharide vaccine, 23 valent Sera Flower Work Phone: [place] [address] DO Work Phone: 09-30-2012 pneumococcal vaccine , unspecified formulation Hosea Sifuentes DO Work Phone: [facility] 05-28-2010 influenza virus vacc ine, unspecified formulation Reen Castro MD Work Phone: [facility] Work Phone: 03-28-2010 influenza, seasonal, injectable, preservative free Rene Castro MD Work Phone: [facility] Work Phone: 2007 TD(adult) unspecifie d formulation Hosea Sifuentes DO Work Phone: [facility] influenza virus vacc ine, unspecified formulation Sera Flower Work Phone: [place] [address] DO Work Phone: Comment on above: Mar 20102010 Payers Date Payer Category Payer Private Health Insurance HUMANA HUMANA HMO/POS [id number] 2023-Present [address] [address] [place] [address] [id number] 2023 Self-pay [id number] 2022 [employer] ( and others) [id number] 2022 [employer] ( and others) [id number] 2022 Medicare [id number] 2021 [employer] ([facility] and others) [id number] 2021 Unknown 2017 Medicare [id number] 2017 Medicare [id number] 1955 Unknown [id number] 2.16.840.1.711149.3.579.2. 356 1955 Unknown [id number] 2.16.840.1.180683.3.579.2. 356 1955 Unknown [id number] 2.16.840.1.702590.3.579.2. 1068 1955 Unknown [id number] 2.16.840.1.129418.3.579.2. 1068 1953 Unknown [id number] 2.16.840.1.498336.3.579.2. 1259 1955 Unknown [id number] 2.16.840.1.094739.3.579.2. 1259 1955 Unknown [id number] 2.16.840.1.059479.3.579.2. 1259 1953 Unknown [id number] 2.16.840.1.131088.3.579.2. 1259 1953 Unknown [id number] 2.16.840.1.513072.3.579.2. 1259 1953 Unknown [id number] 2.16.840.1.125647.3.579.2. 1259 1953 Unknown [id number] 2.16.840.1.646417.3.579.2. 1244 1955 Unknown [id number] 2.16.840.1.993256.3.579.2. 1244 [employer] ( and others) [id number] Unknown [id number] 2.16.840.1.417244.3.579.2. 531 Unknown [id number] 2.16.840.1.814782.3.579.2. 531 Social History Date Type Detail Facility Start: 03-23-2023 End: 10-18-2023 No alcohol use No alcohol use [facility] DO Work Phone: Comment on above: 5 CUPS OF COFFEE ANICETO LY; QUIT IN 1984; Start: 05-01-2022 End: 06-14-2023 Tobacco smoking status [facility] Never smoked tobacco [facility] Start: 05-01-2022 End: 10-18-2023 Tobacco use and exposure Smokeless tobacco non-user [facility] Start: 05-01-2022 End: 11-14-2022 Alcohol intake Ex-drinker (finding) [facility] Start: 1955 Sex Assigned At Not on file [facility] Start: 10-15-2020 End: 10-18-2023 Tobacco smoking status [facility] Ex-smoker (finding) [facility] Start: 1955 Sex Assigned At Male F [facility] End: 05-28-1992 History of tobacco use Current smoker [facility] Work Phone: End: 05-28-1992 History of tobacco use Cigarette Smoker [facility] Work Phone: Start: 03-23-2023 End: 10-18-2023 Alcohol intake Lifetime non-drinker (finding) [facility] Work Phone: Start: 03-23-2023 End: 10-18-2023 Tobacco use panel [facility] Work Phone: Start: 03-13-2023 End: 10-18-2023 Exposure to SARS-CoV-2 (event) Not sure [facility] Start: 03-14-2023 Alcohol Comment caffeine: coff ee 5-6 cups a day [facility] Start: 11-13-2022 Gender identity Identifies as male gender (finding) [facility] Clinical Notes 05-01-2022 to [...] and he continues to follow with the [facility]. Recent lab data from the [facility] were provided and reviewed with him. LDL [...] , Rfl: omega-3 fatty acids-fish oil (One-Per-Day Patterson-3) 684-1,200 mg capsule, Take as directed, Disp: [...] 3 Assessment/Plan 1. Coronary artery disease involving ambler coronary artery of ambler heart without angina pectoris Follow Up In [...] discussion and plan. documented in this encounter [facility] Work Phone: 10-18-2023 Instructions Ana Cunningham [...] up 6 months documented in this encounter [facility] Work Phone: 06-30-2023 History of Presen [...] x 3 days documented in this encounter [facility] 03-23-2023 History of Presen [...] emphasis on low-calorie diet Rene Castro MD, [facility] Review of Systems All other systems [...] , Rfl: omega-3 fatty acids-fish oil (One-Per-Day Patterson-3) 684-1,200 mg capsule, Take as directed, Disp: [...] Rfl: Assessment/Plan 1. Coronary artery disease involving ambler coronary artery of ambler heart without angina pectoris Follow Up In [...] Aminotransferase Alanine Aminotransferase documented in this encounter [facility] Work Phone: 03-23-2023 Instructions Millie Hoffmann [...] of your visit. documented in this encounter [facility] Work Phone: 11-14-2022 Note HNO ID: [id number] Author: Deandra Bender MD Service: ? Author [...] or facial palsy H/o Botox injections in [place]-->didn't help No h/o trauma H/o sinus surgery [...] can I get the FL-41 filter? Any [facility] location, (with an optical shop), throughout [place], Email: [email or web address] [employer] [facility] in [place], [place], [facility] in [place], [place], [facility] in [place], [place], [facility] in [place], [place], [phone] www.5 examples F/u Botulinum toxin 3 months, Botulinum toxin [...] Bender MD, November 14, 2022 10:00 AM. [facility] 11-14-2022 History of Presen t illness Narrative Here for botox Right eye just started twitching Tears as needed. -rofPatient still having twitching right eye and occasionally the left. Refresh tears four times a day. -rof A/P: Right hemifacial spasm x 2 years Patient doesn't remember h/o bells or facial palsy H/o Botox injections in [place]-->didn't help No h/o trauma H/o sinus surgery [...] can I get the FL-41 filter? Any [facility] location, (with an optical shop), throughout [place], Email: [email or web address] in [place], [place], [facility] in [place], [place], [facility] in [place], [place], [employer] in [place], [place], [phone] www.5 examples F/u Botulinum toxin 3 months, Botulinum toxin [...] 2022 10:00 AM. documented in this encounter [facility] 08-08-2022 Note HNO ID: [id number] Author: Deandra Bender MD Service: ? Author Type: Physician Type: Progress Notes Filed: 08/08/2022 3:09 PM Note Text: Patient still having twitching right eye and occasionally the left. Refresh tears four times a day. -rof A/P: Right hemifacial spasm x 2 years Patient doesn't remember h/o bells or facial palsy H/o Botox injections in [place]-->didn't help No h/o trauma H/o sinus surgery [...] Bender MD, August 08, 2022 3:05 PM. [facility] 08-08-2022 History of Presen t illness [...] 2022 3:05 PM. documented in this encounter [facility] 08-08-2022 Instructions Deandra Bender MD - [...] Recheck next visit documented in this encounter [facility] 06-21-2022 Miscellaneous Notes Notes and MRI orders faxed to [facility]. [facility] today. : 1955 Allergies: Codeine, Codeine-Guaifenesin, and Guaifenesin (home) [phone] (cell) Reason for call: Sasha F:[phone] Asking for the MRI orders and office notes to be faxed over to [facility]. Patient will be having them done there. Patient last appointment: Visit date not found The patients preferred pharmacy has been captured for this encounter? not asked Delores Mccollum documented in this encounter [facility] 06-21-2022 Note HNO ID: [id number] Author: Deandra Bender MD Service: ? Author Type: Physician Type: Progress Notes Filed: 06/21/2022 9:08 AM Note Text: Twitching right eye x two years. Both upper and lower lid. Trouble reading because of it. +tearing and burning. Refresh four times a day. -rof A/P: Right hemifacial spasm x 2 years Patient doesn't remember h/o bells or facial palsy H/o Botox injections in [place]-->didn't help No h/o trauma H/o sinus surgery [...] Bender MD, June 21, 2022 9:05 AM. [facility] 06-21-2022 Instructions Deandra Bender MD - [...] and get MRI documented in this encounter [facility] 06-21-2022 History of Presen t illness Narrative Twitching right eye x two years. Both upper and lower lid. Trouble reading because of it. +tearing and burning. Refresh four times a day. -rof A/P: Right hemifacial spasm x 2 years Patient doesn't remember h/o bells or facial palsy H/o Botox injections in [place]-->didn't help No h/o trauma H/o sinus surgery [...] 2022 9:05 AM. documented in this encounter [facility] 05-01-2022 Note HNO ID: [id number] Author: Mau Randle OD Service: ? Author Type: LASER CUTTER Type: Progress Notes Filed: 05/01/2022 9:22 AM [...] of its relevant components. 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 Work Phone: Evaluation note* Diagnosis Coronary artery disease involving ambler coronary artery of ambler heart without angina pectoris Essential hypertension Unspecified essential hypertension Mixed hyperlipidemia Ischemic cardiomyopathy Other specified forms of chronic ischemic heart disease Status post coronary artery stent placement Postsurgical percutaneous transluminal coronary angioplasty status Class 2 obesity with body mass index (BMI) of 35.0 to 35.9 in adult, unspecified obesity type, unspecified whether serious comorbidity present documented in this encounter [facility] Work Phone: Evaluation note* Diagnosis Acute exacerbation of chronic obstructive pulmonary disease (CMS/HCC)- Primary Obstructive chronic bronchitis with exacerbation [facility] Coronary artery disease involving ambler coronary artery of ambler heart without angina pectoris- Primary Essential hypertension [...] hazards to health documented in this encounter [facility] Work Phone: Hospital Discharge instructions Additional Instructions If your symptoms return/worsen or you develop any further concerns or symptoms please see your doctor or return to the emergency department immediately.[facility] Work Phone: Reason for referral (narrative)* Consultation (Routine) - Authorized Specialty Diagnoses / Procedures Referred By Contac t Referred To Contact Cardiology Diagnoses Coronary artery disease involving ambler coronary artery of ambler heart without angina pectoris Essential hypertension Mixed hyperlipidemia Ischemic cardiomyopathy Status post coronary artery stent placement Class 2 obesity with body mass index (BMI) of 35.0 to 35.9 in adult, unspecified obesity type, unspecified whether serious comorbidity present Procedures Follow Up In Cardiology Rene Castro MD [address], [address] [address] Rene Castro MD [address] [facility] 2, [address] [address] Referral ID Status Reason Start Date Expiration Date V isits Requested Visits Authorized [id number] Authorized 03/23/2023 03/22/2024 1 1 [facility] Work Phone: Reason for referral (narrative)* Consultation (Routine) - Authorized Specialty Diagnoses / Procedures Referred By Bryon hernandez Referred To Contact Cardiology Diagnoses Coronary artery disease involving ambler coronary artery of ambler heart without angina pectoris Procedures Follow Up In Cardiology Rene Castro MD [address] [facility] 2, [address] [address] Rene Castro MD [address] [address] [facility] [address], [address] [address] Referral ID Status Reason Start Date Expiration Date V isits Requested Visits Authorized [id number] Authorized 10/18/2023 10/17/2024 1 1 [facility] Work Phone: Chief Complaint * DEMARCUS PANCHAL [...] infarction with no ischemia. EF in the [id number]. He remains compensated as for ischemic cardiomyopathy. [...] on low-calorie diet * Rene Castro MD, [facility] Family History No Family History Records [...] W/O & W/CONTRAST MATRL Deandra Bender MD [address] [place] [address] Mr Imaging Referral ID Status Reason Start Date Expiration Date Visits Requested Visits Authorized [id number] Pending Review Auto-Generat ed Referral 06/21/2022 07/21/2023 1 1 Specialty Diagnoses / Procedures Referred By Bryon hernandez Referred To Contact MR IMAGING Diagnoses Paralytic strabismus Procedures MRI BRAIN WO/W IVCON MRI BRAIN BRAIN STEM W/O W/CONTRAST MATERIAL Deandra Bender MD [address] [place] [address] Mr Imaging Referral ID Status Reason Start Date Expiration Date Visits Requested Visits Authorized [id number] Pending Review Auto-Generat ed Referral 06/21/2022 07/21/2023 [...] or prosecute any alcohol or drug abuse patient.[facility] the event this information is protected by the Federal Confidentiality of Alcohol and Drug Abuse Patient Records regulations: The Federal rules restrict any use of the information to criminally investigate or prosecute any alcohol or drug abuse patient.[facility] the event this information is protected by the Federal Confidentiality of Alcohol and Drug Abuse Patient Records regulations: The Federal rules restrict any use of the information to criminally investigate or prosecute any alcohol or drug abuse patient.[facility] the event this information is protected by the Federal Confidentiality of Alcohol and Drug Abuse Patient Records regulations: The Federal rules restrict any use of the information to criminally investigate or prosecute any alcohol or drug abuse patient.[facility] the event this information is protected by the Federal Confidentiality of Alcohol and Drug Abuse Patient Records regulations: The Federal rules restrict any use of the information to criminally investigate or prosecute any alcohol or drug abuse patient.[facility] Reason for Visit (unrecogniz ed section [...] up to 100 units Procedures BOTOX EI [id number] [place] [address] [place] [address] Deandra Bender MD [address] [place] [address] Referral ID Status Reason Start Date Expiration Date V isits Requested Visits Authorized [id number] Authorized 11/14/2022 05/27/2023 99 99 Reason Comments Follow-up 6 months Reason Comments Follow-up 6m Specialty Diagnoses / Procedures Referred By Contac t Referred To Contact Cardiology Diagnoses Coronary artery disease involving ambler coronary artery of ambler heart without angina pectoris Essential hypertension Mixed hyperlipidemia Ischemic cardiomyopathy Status post coronary artery stent placement Class 2 obesity with body mass index (BMI) of 35.0 to 35.9 in adult, unspecified obesity type, unspecified whether serious comorbidity present Procedures Follow Up In Cardiology Rene Castro MD [address] [facility] 2, [address] [address] Rene Castro MD [address] [facility] 2, [facility] [address] [place] [address] Referral ID Status Reason Start Date Expiration Date V isits Requested Visits Authorized [id number] Authorized 03/23/2023 03/22/2024 1 1 (unrecognized sect ion and content) No Status Records FoundNo Status Records FoundNo Status Records FoundNo Status Records FoundNo Status Records FoundNo Status Records FoundNo Status Records FoundNo Status Records Found INFORMATION SOURCE (unrecogn ized section and content) DATE CREATED AUTHOR 07/16/2022 [facility] dical Specialist DATE CREATED AUTHOR AUTHOR'S ORGANIZ ATION 09/09/2022 [employer] DATE CREATED AUTHOR AUTHOR'S ORGANIZ ATION 11/14/2022 [facility] DATE CREATED AUTHOR AUTHOR'S ORGANIZ ATION 02/12/2023 [facility] ical [facility] DATE CREATED AUTHOR AUTHOR'S ORGANIZ ATION 02/28/2023 [facility] DATE CREATED AUTHOR AUTHOR'S ORGANIZ ATION 06/25/2023 [facility] DATE CREATED AUTHOR AUTHOR'S ORGANIZ ATION 09/22/2023 [facility] dical Specialists EPIC DATE CREATED AUTHOR AUTHOR'S ORGANIZ ATION 10/20/2023 [facility] Director Of Retail Marketing Teams (unrecognized sec tion and content) Team Status: Active Member Role Status Dates Sera Flower MD Primary Care Provider Active Team Status: Inactive Member Role Status Dates Sera Flower MD Primary Care Provider, Other Provider Active Rene Castro MD Attending Provider Active Mixing Machine Attendant Relationship Specialty Start Date End Date Sera Flower MD [address] [place] [address] PCP - General 02/16/21 Team Status: Inactive Member Role Status Dates Sera Flower MD Primary Care Provider Active St art: June 14, 2023 End: June 14, 2023 Jasper Martinez DO Emergency Provider Active Start: June 14, 2023 End: June 14, 2023 Mixing Machine Attendant Relationship Specialty Start Date End Date Sera Flower MD [address] [place] [address] PCP - [employer] 05/28/22 Sera Flower MD [address] [place] [address] PCP - General Internal Medicine 10/03/22 Mixing Machine Attendant Relationship Specialty Start Date End Date Sera Flower MD [address] [place] [address] PCP - General 02/16/21 Goals (unrecognized [...] BE BASED ON THE PRIMARY CLINICAL RECORDS. [employer] provides no warranty or guarantee of the accuracy or completeness of information in this document.
--- NOTE | 2023-12-24 07:59 | CT_ITS ---
[address] [address] Patient Name: DEMARCUS CALDERON MRN: [id number] date: 1955 Sex: M Assigned Patient Location: [facility] Current Patient Location: [facility] Accession/Order Number: [id number] Exam Date: 12/24/2023 08:30 Report Date: 12/24/2023 09:41 At the request of: SHAIKH STEPHANIE Procedure: CT chest wo con EXAMINATION: CT chest wo con HISTORY: sob COMPARISON: CT chest 07/22/2023 TECHNIQUE: Axial, Coronal, and Sagittal images were created without the administration of IV contrast material. Dose reduction techniques were achieved by using automated exposure control and/or adjustment of mA and/or kV according to patient size and/or use of iterative reconstruction technique. FINDINGS: LUNGS: Mild emphysematous changes. No acute infiltrates or suspicious nodules. A few tiny calcified granulomas. PLEURA: No mass, effusion, or pneumothorax. VASCULATURE: No abnormality. GIOVANNA: No mass or pathologic adenopathy. MEDIASTINUM: No mass or pathologic adenopathy. CARDIAC: No enlargement, pericardial thickening, or pericardial effusion. Coronary Artery calcifications: Coronary calcifications are heavy. AORTA: No aneurysm or dissection. CHEST WALL: No mass or axillary adenopathy BONES: No bone lesion or fracture. LIMITED ABDOMEN: No suspicious findings. Limited images of the upper abdomen. OTHER: Negative. CT/CT chest wo con IMPRESSION: 1. Mild emphysematous changes. 2. No acute infiltrates or suspicious findings. Electronically authenticated by: TEX HARTMANN Date: 12/24/2023 09:41
--- NOTE | 2023-12-24 10:40 | CM.NOTE ---
Rounds made with Dr. Britt. Dr. Britt will add diuretic, HHN and steroids to medication list and check an echo. Mr. Panchal verbalizes understanding.
--- NOTE | 2023-12-24 11:23 | CA_ITS ---
Patient Name: DEMARCUS CALDERON MR#: [id number] : 1955 Exam Date: 12/24/2023 Ordering Doctor: SHAIKH Rajat BROWN . ECHOCARDIOGRAM REPORT PROCEDURE: CA ECHO DOPPLER COMPLETE INDICATIONS: SOB/CHF COMPARISON: None. DESCRIPTION: COMPLETE ECHOCARDIOGRAM Real-time transthoracic echocardiography with 2D, M-mode, spectral and color flow Doppler performed. QUALITY: Technical quality was good. LEFT VENTRICLE: Normal chamber size. Mild concentric left ventricular hypertrophy. LV EF: Global left ventricular systolic function is mildly reduced; visually estimated ejection fraction is 40 to 45%. Diffuse hypokinesis DIASTOLIC: Grade I diastolic dysfunction. ATRIAL SEPTUM: Inadequately seen. LEFT ATRIUM: Mild dilatation. RIGHT ATRIUM: Mild dilatation. RIGHT VENTRICLE: Normal chamber size. Normal right ventricular systolic function. TRICUSPID VALVE: Normal mobility and thickness. No stenosis with trivial regurgitation. No evidence of pulmonary hypertension. RVSP 27mmHg MITRAL VALVE: Normal mobility and thickness. No evidence of mitral valve stenosis. There is no mitral annular calcification. Trivial mitral regurgitation. AORTIC VALVE: Normal trileaflet appearance. No visible sclerosis. Normal leaflet mobility. No evidence of aortic valve stenosis. No aortic regurgitation. AORTIC ROOT: Normal diameter and appearance. PULMONIC VALVE: Normal thickness and mobility. No stenosis. No regurgitation. PERICARDIUM: There is a trivial circumferential pericardial effusion IVC: Collapses with inspirations. Normal size. CONCLUSION: 1. Global left ventricular systolic function is mildly reduced; visually estimated ejection fraction is 40 to 45% 2. The right ventricle is normal in size and systolic function 3. Mild left ventricular hypertrophy 4. Grade 1 diastolic dysfunction 5. Biatrial enlargement 6. No significant valvular abnormalities 7. Trivial circumferential pericardial effusion is seen Adult Echocardiography Procedure Report Left Ventricle LVEDD (3.7 - 5.6 cm): 5.64 cm LVESD (2.2 - 4.0 cm): 4.80 cm LVIVS thickness (0.6 - 1.2 cm): 1.36 cm LVPW thickness (0.5 - 1.0 cm): 1.19 cm e': 0.08 m/s E - e': 8.63 LVOT Max Gradient: 3.12 mm[Hg], 2.81 mm[Hg] LVOT Area (cm2): 0.86 m/s Peak Velocity (LVOT): 0.88 m/s, 0.84 m/s Mean Velocity (LVOT): 0.55 m/s LVOT Diameter 2.14 cm Left Ventricular Ejection Fraction: 46.86 % Left Atrium LA Volume Index (2D A2C): 36.71 ml/m2 Left Atrium Systolic Dimension: 4.53 cm Mitral Valve MV E to A Ratio: 0.89 Mitral Valve A-Wave Peak Velocity: 0.81 m/s Mitral Valve E-Wave Peak Velocity: 0.72 m/s Right Ventricle RV Internal Diastolic Dimension: 3.60 cm Aorta AO Root Diam: 2.77 cm Ascending Ao Diam: 3.02 cm Aortic Valve AoV Area (Peak Remi): 2.41 cm2, 2.55 cm2, 2.27 cm2 AoV Area (VTI): 2.56 cm2, 2.76 cm2, 2.36 cm2 Peak Velocity(Antegrade Flow): 1.24 m/s, 1.32 m/s Peak Gradient(Antegrade Flow): 6.18 mm[Hg], 7.01 mm[Hg] Mean Velocity(Antegrade Flow): 0.91 m/s, 0.96 m/s Mean Gradient(Antegrade Flow): 3.67 mm[Hg], 4.18 mm[Hg] Velocity Time Integral: 25.02 cm, 25.87 cm Tricuspid Valve Peak Velocity (Regurgitant Flow): 1.99 m/s, 2.46 m/s Pulmonic Valve Mean Gradient: 3.98 mm[Hg], 3.83 mm[Hg] Mean Velocity: 0.94 m/s, 0.92 m/s Peak Velocity: 1.32 m/s, 1.24 m/s Peak Gradient: 6.15 mm[Hg], 7.40 mm[Hg], 6.64 mm[Hg] Right Atrium Right Atrium Systolic Pressure: 65.04 ml, 65.04 ml Dictated by: Luba Ortega M.D. on 12/24/2023 at 17:17 Approved by: Luba Ortega M.D. on 12/24/2023 at 17:21
--- NOTE | 2023-12-24 11:24 | P.HP_ITS ---
HPI H&P: HPI History of Present Illness Chief complaint: SOB Narrative: 68-year-old male presented to ED with worsening shortness of breath over the past few months. He also reports orthopnea and paroxysmal nocturnal dyspnea. He reports his symptoms have gotten worse over the past few weeks. He also has mild lower extremity edema. He has no known previous history of congestive heart failure but has significant coronary artery disease that was treated with percutaneous coronary intervention a few years ago. Patient denies chest pain, palpitations, nausea, vomiting. Has mild abdominal discomfort and umbilical hernia which is tender to palpation. Denies constipation, diarrhea. Patient is a former smoker and has no known history of chronic lung disease. 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 While he does not meet the definition of hypoxia his pulse ox has been steadily hovering just above 90%. His chest x-ray was concerning for possible bilateral pulmonary infiltrates/edema along with mild cardiomegaly. He was admitted for observation earlier this morning with working diagnosis of acute on chronic diastolic heart failure Patient was given 1 dose of Lasix by ED. He has noticed mild improvement in his shortness of breath but still feels subjectively short of breath Opioid HPI Opioid Management Most Recent Pain and Opioid Data: Last Pain Scale 1 07/24/23 13:00 Last Pain Assessment 12/24/23 11:00 Last ORT Total Score 0 12/24/23 06:51 Last ORT Risk Category Low Risk 12/24/23 06:51 Review of Systems ROS Status of ROS 10 or more systems reviewed and unremark able except as noted in history and below [facility] Medical History (Updated 12/24/23 @ 11:32 by Shaikh Balwinder MD) BPH (benign prostatic hyperplasia) ?N40.0 - Benign prostatic hyperplasia without lower urinary tract symptoms (ICD-10) CAD (coronary artery disease) ?I25.10 - Atherosclerotic heart disease of [place] coronary artery without angina pectoris (ICD-10) GERD (gastroesophageal reflux disease) ?K21.9 - Gastro-esophageal reflux disease without esophagitis (ICD-10) Hypertension ?I10 - Essential (primary) hypertension (ICD-10) COPD (chronic obstructive pulmonary disease) ?J44.9 - Chronic obstructive pulmonary disease, unspecified (ICD-10) Bronchitis ?J40 - Bronchitis, not specified as acute or chronic (ICD-10) Emphysema of lung ?J43.9 - Emphysema, unspecified (ICD-10) Heart attack ?I21.9 - Acute myocardial infarction, unspecified (ICD-10) COPD exacerbation ?J44.1 - Chronic obstructive pulmonary disease with (acute) exacerbation (ICD-10) COVID-19 ?U07.1 - COVID-19 (ICD-10) Surgical History (Updated 12/24/23 @ 07:31 by Celina Ambrose) H/O sinus surgery ?Z98.890 - Other specified postprocedural states (ICD-10) H/O shoulder surgery ?Z98.890 - Other specified postprocedural states (ICD-10) H/O heart artery stent ?Z95.5 - Presence of coronary angioplasty implant and graft (ICD-10) Family History (Updated 12/24/23 @ 07:24 by Celina Ambrose) Aunt Family history of cancer Mother Family history of diabetes mellitus Brother Family history of hypertension Father Family history of hypertension Social History (Updated 12/24/23 @ 07:25 by Celina Ambrose) Within the past year, how often did you have a drink containing alcohol: never Score interpretation: A score less than 4 is consistent with normal alcohol consumption. 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 Known occupational exposures/hazards: No Highest level of school completed/degree received: GED or equivalent Are you now , , , , never or living with a partner: In a typical week, how many times do you talk on the telephone with family, friends, or neighbors: 3 or more times per week How often do you get together with friends or relatives: 3 or more times per week How often do you attend scientology or confucianism services: never Little interest or pleasure in doing things: not at all Feeling down, depressed, or hopeless: not at all Feel stressed/tense/nervous/anxious/difficulty sleeping: not at all Do you think of yourself as: straight/heterosexual Gender Identity: male Meds Home Medications and Allergies Home Medications ?Medication ?Instructions ?Recorded ?Confirmed ?Type carvedilol 6.25 mg tablet 6.25 mg PO Q12H 07/22/23 12/24/23 History losartan 50 mg tablet 50 mg PO Q24H 07/22/23 12/24/23 History omeprazole 20 mg capsule,delayed 20 mg PO Q24H 07/22/23 12/24/23 History release tamsulosin 0.4 mg capsule 0.4 mg PO Q24H 07/22/23 12/24/23 History Allergies Allergy/AdvReac Type Severity Reaction Status Date / Time codine AdvReac Intermediate Uncoded 07/22/23 13:05 Exam Constitutional Vital Signs, click to edit/add: Last Vital Signs Temp 97.5 F L 12/24/23 07:59 Pulse 71 12/24/23 07:59 Resp 16 12/24/23 07:59 BP 146/80 H 12/24/23 07:59 Pulse Ox 91 L 12/24/23 07:59 O2 Del Method Room Air 12/24/23 07:59 Documenting provider has reviewed patient's vital signs: yes Common normals: no apparent distress and oriented x3 General appearance: cooperative HENMT Common normals: normocephalic and head/scalp atraumatic Head and scalp: normocephalic and atraumatic Other: Short thick neck Respiratory Common normals: normal respiratory effort and no use of accessory muscles Effort & inspection: able to speak in complete sentences Auscultation: crackles Cardio Common normals: regular rate, S1 normal heart sound and S2 normal heart sound Rate: regular rate Heart sounds: S1 normal and S2 normal GI Common normals: soft to palpation and no hepatosplenomegaly Palpation: soft, no hepatosplenomegaly and hernia umbilical Neuro Common normals: oriented x3, moves all extremities and no focal motor deficits Psych Common normals: mental status grossly normal, denies hallucinations, denies homicidal ideation and denies suicidal ideation Results Labs Labs: Short CBC 12/24/23 Range/Units 05:25 WBC 6.7 (4.0-11.0) 10^3/uL Hgb 13.6 L (14.0-18.0) g/dL Hct 39.8 L (42.0-54.0) % Plt Count 180 (150-450) 10^3/uL BMP 12/24/23 05:25 Sodium 133 L Potassium 4.2 Chloride 101 Carbon Dioxide 25.3 BUN 13.0 Creatinine 0.85 Glucose 99 Calcium 8.7 Assessment and Plan Assessment and Plan (1) Acute on chronic diastolic (congestive) heart failure: Assessment and Plan: Volume overload on exam, start on lasix 40 q12. Monitor I/O, daily weights. ECHO ordered. (2) Acute exacerbation of chronic obstructive pulmonary disease: Assessment and Plan: Mild exp wheezing and SOB, will treat as COPD exacerbation. On systemic steroids, duonebs and azithroymcin (3) Hypertension: Assessment and Plan: slightly elevated. monitor. hydralazine IV as needed. on coreg/losartan Qualifiers: Hypertension type: primary hypertension Qualified Code(s): I10 - Essential (primary) hypertension (4) CAD (coronary artery disease): Assessment and Plan: prior hx of CAD s/p PCI. on coreg. not on statin for unclear reason. defer to pcp Qualifiers: Coronary Disease-Associated Artery/Lesion type: [place] artery [place] vs. transplanted heart: [place] heart Associated angina: without angina Qualified Code(s): I25.10 - Atherosclerotic heart disease of [place] coronary artery without angina pectoris (5) BPH (benign prostatic hyperplasia): Assessment and Plan: c/w flomax. Qualifiers: Lower urinary tract symptom presence: symptoms absent Qualified Code(s): N40.0 - Benign prostatic hyperplasia without lower urinary tract symptoms
--- NOTE | 2023-12-24 11:48 | SWNOTE1 ---
SW reviewed therapy notes and pt has no identified needs at this time. SW to complete assessment.
[2023-12-24] MEDS: AZITHROMYCIN 250 MG TABLET PO (12:05)
[2023-12-24] MEDS: ASPIRIN 81 MG TAB.CHEW PO (12:05)
--- NOTE | 2023-12-24 12:05 | SWNOTE1 ---
SW met with pt to discuss dc needs. Pt's son and in room as well. Pt lives at home with . Pt's concern is how he stops breathing while sleeping. She stated he has as sleep study in January, but it is such a long time to wait. She stated he does see Dr. Morgan and is hoping he can get it moved up. At this time pt and deny any discharge needs. SW to follow as needed. Medicare Outpatient Observation Notice reviewed and discussed with patient. Pt. verbalized understanding and signed the form. Original given to patient and copy placed in patient?s chart.
[2023-12-24] MEDS: METHYLPREDNISOLONE SOD SUCC PF 40 MG/ML VIAL IVP ×2 (14:16→21:07)
[2023-12-24] MEDS: ENOXAPARIN SODIUM 40 MG/0.4 ML SYRINGE SUBQ (16:25)
[2023-12-25] VITALS (10 sets, daily range): BP systolic 144–145; BP diastolic 72–81; PULSE 90–104; TEMP 36.3; O2SAT 93–97
[2023-12-25] MEDS: IPRATROPIUM/ALBUTEROL SULFATE 3 ML AMPUL.NEB IH ×3 (03:52→11:23)
[2023-12-25] MEDS: METHYLPREDNISOLONE SOD SUCC PF 40 MG/ML VIAL IVP (06:18)
[2023-12-25 06:27] LABS: Basophils Percent Auto 0.1 % (0.2-2.0); Hematocrit 42.6 % (42.0-54.0); Hemoglobin 14.1 g/dL (14.0-18.0); Immature Granulocytes Abs Auto 0.07 10^3/uL (0.00-0.03); Immature Granulocytes Pct Auto 0.5 % (0.0-0.5); Lymphocytes Absolute Auto 0.9 10^3/uL (1.2-3.8); Lymphocytes Percent Auto 5.9 % (20.5-60.0); Mean Corpuscular HGB Conc 33.1 g/dL (29.9-35.2); Mean Corpuscular Hemoglobin 28.6 pg (25.9-34.0); Mean Corpuscular Volume 86.4 fL (80.0-94.0); Mean Platelet Volume 10.5 fL (9.5-13.5); Monocytes Absolute Auto 0.6 10^3/uL (0.3-0.8); Monocytes Percent Auto 4.1 % (1.7-12.0); Neutrophils Percent Auto 89.4 % (43.0-75.0); Platelet Count 203 10^3/uL (150-450); Red Blood Count 4.93 10^6/uL (4.70-6.10); Red Cell Distribution Width 13.4 % (11.0-15.0); White Blood Count 14.5 10^3/uL (4.0-11.0)
[2023-12-25 06:44] LABS: Alanine Aminotransferase 37 U/L (16-63); Albumin Globulin Ratio 1.2; Albumin Level 3.6 g/dL (3.4-5.0); Alkaline Phosphatase 66 U/L (46-116); Anion Gap 13.5; Aspartate Amino Transferase 18 U/L (15-37); BUN Creatinine Ratio 18.3; Bilirubin Total 0.3 mg/dL (0.2-1.0); Carbon Dioxide 23.1 mmol/L (21.0-32.0); Chloride 97 mmol/L (98-107); Estimated GFR (African America >60 (>=60); Estimated GFR (Non-African Ame >60 (>=60); Globulin 3.1 g/dL; Glucose 175 mg/dL (74-106); Potassium 3.6 mmol/L (3.5-5.1); Sodium 130 mmol/L (136-145); Total Protein 6.7 g/dL (6.4-8.2)
[2023-12-25 06:52] LABS: Estimated Average Glucose 117 mg/dL; Glycohemoglobin A1C 5.7 % (4.5-6.2)
[2023-12-25] MEDS: ASPIRIN 81 MG TAB.CHEW PO (08:27)
[2023-12-25] MEDS: AZITHROMYCIN 250 MG TABLET PO (08:27)
[2023-12-25] MEDS: FUROSEMIDE 40 MG/4 ML VIAL IVP (10:45)
--- NOTE | 2023-12-25 10:57 | CM.NOTE ---
Rounds made with Dr. Britt. Dr. Britt reviews Echo results and treatment plan with Mr. Panchal. Plan for discharge today. Follow up with [facility].
--- NOTE | 2023-12-25 12:02 | PM.DS1 ---
DS: Providers Provider Date of admission: 12/24/23 06:49 Primary care physician: SERA FLOWER Admitting clinician: Shaikh Balwinder Attending physician on admission: Shaikh Balwinder Consults: 12/24/23 07:59 Occupational Therapy Eval and Treat Routine Reason for consultation: Ambulatory dysfunction/weakness Physical Therapy Eval and Treat Routine Reason for consultation: Ambulatory dysfunction/weakness Attending physician on discharge: Shaikh Balwinder Discharging clinician: Shaikh Balwinder Anticipated date of discharge: 12/25/23 DS: Diagnosis Discharge Diagnosis (1) Acute on chronic congestive heart failure: Assessment and plan: Newly reduced LVEF. Will need to follow up with cardiology for ischemic work up as outpatient. Euvolemic on exam today. Stable for discharge on oral lasix. Already on coreg/losartan. Will need to be started on GDMT - defer to cardiology. Qualifiers: Heart failure type: combined systolic and diastolic Qualified Code(s): I50.43 - Acute on chronic combined systolic (congestive) and diastolic (congestive) heart failure (2) Acute exacerbation of chronic obstructive pulmonary disease: Assessment and plan: Will discharge on prednisone taper and ventolin as needed. Will need PFTs as outpatient for formal diagnosis of COPD. (3) Hypertension: Assessment and plan: C/w home medications/ Qualifiers: Hypertension type: primary hypertension Qualified Code(s): I10 - Essential (primary) hypertension (4) CAD (coronary artery disease): Assessment and plan: Prior hx of multiple PCI. No recent LHC. Will need ischemic eval as newly reduced LVEF. Defer to cardiology. Qualifiers: Coronary Disease-Associated Artery/Lesion type: [place] artery [place] vs. transplanted heart: [place] heart Associated angina: without angina Qualified Code(s): I25.10 - Atherosclerotic heart disease of [place] coronary artery without angina pectoris (5) BPH (benign prostatic hyperplasia): Assessment and plan: Cw flomax. Qualifiers: Lower urinary tract symptom presence: symptoms absent Qualified Code(s): N40.0 - Benign prostatic hyperplasia without lower urinary tract symptoms DS: Summary Hospital Course Hospital Course: 68-year-old male presented to ED with worsening shortness of breath over the past few months. He also reported orthopnea and paroxysmal nocturnal dyspnea. He reports his symptoms have gotten worse over the past few weeks. He also has mild lower extremity edema. He has no known previous history of congestive heart failure. 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 His chest x-ray was concerning for possible bilateral pulmonary infiltrates/edema along with mild cardiomegaly. He was admitted for observation earlier this morning with working diagnosis of acute on chronic diastolic heart failure and possibly COPD exacerbation. Patient was treated with IV lasix, solumedrol, inhaled bronchodilators. He had ECHO that showed mildly reduced LVED (40-45%%), grade 1 diastolic dysfunction. He feels significantly better today and told me that he was able to sleep after a long time. Patient was educated on heart failure with reduced ejection fraction and was instructed to follow-up with cardiology as outpatient. He will likely need ischemic evaluation for newly reduced ejection fraction considering his prior history of coronary artery disease. Will discharge him on oral Lasix. He was also educated on limiting salt intake and fluid intake. Patient will need close monitoring to prevent readmission and was instructed to follow-up with PCP in 1 to 2 weeks. Patient will also benefit from short prednisone taper along with albuterol as needed for presumed COPD exacerbation. It will not be unreasonable to have PFTs as outpatient once acute illness has resolved. Status at Discharge Functional status at discharge: independent ambulation Overall status at discharge: patient is back to baseline Time Spent with Patient Time attestation: Total time spent providing and/or coordinating discharge services: Exam Constitutional Vital Signs, click to edit/add: Last Vital Signs Temp 97.3 F L 12/25/23 06:00 Pulse 104 H 12/25/23 11:25 Resp 20 12/25/23 11:25 BP 145/72 H 12/25/23 10:45 Pulse Ox 96 12/25/23 11:25 O2 Del Method Room Air 12/25/23 11:25 Documenting provider has reviewed patient's vital signs: yes Common normals: no apparent distress and oriented x3 General appearance: cooperative Respiratory Common normals: normal respiratory effort and clear to auscultation bilaterally Effort & inspection: able to speak in complete sentences Auscultation: clear to auscultation bilaterally Cardio Common normals: regular rate, S1 normal heart sound and S2 normal heart sound Rate: regular rate Heart sounds: S1 normal and S2 normal Extremity Common normals: no clubbing, cyanosis or edema DS: Data Data Completed and Pending Labs on day of discharge: Labs from last 24 hours 12/25/23 05:51 WBC 14.5 H RBC 4.93 Hgb 14.1 Hct 42.6 MCV 86.4 MCH 28.6 MCHC 33.1 RDW 13.4 Plt Count 203 MPV 10.5 Neut % (Auto) 89.4 H Lymph % (Auto) 5.9 L Barry % (Auto) 4.1 Eos % (Auto) 0.0 L Baso % (Auto) 0.1 L Neut # (Auto) 13.0 H Lymph # (Auto) 0.9 L Barry # (Auto) 0.6 Eos # (Auto) 0.0 Baso # (Auto) 0.0 Abs Immat Gran (auto) 0.07 H Imm/Tot Granulo (auto) 0.5 Sodium 130 L Potassium 3.6 Chloride 97 L Carbon Dioxide 23.1 Anion Gap 13.5 BUN 20.0 H Creatinine 1.09 Est GFR ( Amer) >60 Est GFR (Non-Af Amer) >60 BUN/Creatinine Ratio 18.3 Glucose 175 H Estimat Average Glucose 117 Hemoglobin A1c 5.7 Calcium 9.0 Total Bilirubin 0.3 AST 18 ALT 37 Alkaline Phosphatase 66 Total Protein 6.7 Albumin 3.6 Globulin 3.1 Albumin/Globulin Ratio 1.2 Discharge Plan Discharge Disposition: Home, Self-Care Discharge Medications: New furosemide [Lasix] 40 mg tablet 40 mg PO DAILY Qty: 30 0RF albuterol sulfate [Ventolin HFA] 90 mcg/actuation HFA aerosol inhaler 2 inh inhalation Q6H PRN (Reason: shortness of breath or wheezing) Qty: 6.7 0RF prednisone 20 mg tablet 20 mg PO BID 5 Days Qty: 10 0RF Continued tamsulosin 0.4 mg capsule 0.4 mg PO Q24H carvedilol 6.25 mg tablet 6.25 mg PO Q12H losartan 50 mg tablet 50 mg PO Q24H omeprazole 20 mg capsule,delayed release(DR/EC) 20 mg PO Q24H Activity: increase activity as tolerated Diet: advance to your usual diet Print Language: Amharic Patient Instructions: Furosemide (By mouth) (Lasix), Albuterol (By mouth) (Proventil, VoSpire, VoSpire ER), Prednisone (By mouth), Heart Failure (ED) Forms: Portal Instructions Follow Up Appointments: f/u with PCP in one week F/u with cardiology in 1-2 weeks(unable to reach office)
--- NOTE | 2023-12-25 13:16 | NUTR.NU ---
Pt was admitted 12/24/23 w/dx PNA,CHF, COPD, h/o MN, HTN, GERD. PO intakes of regular diet are 100% and appear to meet his estimated macronutrient requirements. Pt may benefit from Heart Healthy diet. Abnormal labs indicate infection, fluid imbalance. He is planning for discharge to home today. Will continue to follow PRN.
--- NOTE | 2023-12-26 15:19 | CM.DCFOLLOWU ---
1st attempt 12/26/23
--- NOTE | 2023-12-27 13:42 | CM.DCFOLLOWU ---
Person spoke with: patient How are you feeling? well How is your pain? none Did you understand your discharge instructions? yes Do you have any questions about your discharge instructions? no Were you given any prescriptions at discharge? yes Were you able to get your prescriptions filled? yes Do you understand how to take your medications as ordered? yes Do you have any questions about your follow up appointment and do you plan to keep your follow up appointment? 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 no Questions/Comments/Concerns/Other: none
== END 2023-12-25 11:50 | disposition home or self-care (01) ==
LOC: ER 06:39 → MS 06:50
PROVIDERS: Admitting Provider Internal Medicine; Emergency Provider Internal Medicine; PCP Internal Medicine; Visit Provider Internal Medicine
DX: I11.0 Hypertensive heart disease with heart failure (principal); I50.43 Acute on chronic combined systolic (congestive) and diastolic (congestive) heart failure; I25.10 Atherosclerotic heart disease of native coronary artery without angina pectoris; J44.1 Chronic obstructive pulmonary disease with (acute) exacerbation; N40.0 Benign prostatic hyperplasia without lower urinary tract symptoms; Z79.899 Other long term (current) drug therapy; Z87.891 Personal history of nicotine dependence; Z20.822 Contact with and (suspected) exposure to COVID-19
CPT/HCPCS: 36415; 71045; 71250; 80048; 80053; 83036; 83880; 84484; 85025; 85378; 87811; 93005; 93306; 93356; 94640; 94761; 96372; 96374; 96375; 96376; 99285; G0378; J1650; J1940; J2919

== ENCOUNTER 2024-01-17 07:45 | Outpatient (OUT) | payer MEDICARE, OTHER, SELFPAY ==
--- OUTSIDE RECORDS SUMMARY | 2024-01-17 07:48 | XMS_ITS | CCD ---
Author Organization [facility] Care Team Providers Care Waist Presser Name Role Phone Sera Flower Unavailable Unavailable Unavailable Unavailable Primary Care Provider Unavailabl e Unavailable Unavailable DEANDRA BENDER Attending Unavailable DEANDRA BENDER Referring Unavailable MAU RANDLE Attending Unavailable DEANDRA BENDER Attending Unavailable DEANDRA BENDER Attending Unavailable DEANDRA BENDER Referring Unavailable MD Sera Flower Primary Care Provider MD Sera Flower Other Provider MD Rene Castro Attending Provider [phone] Dr. Sera Flower Primary Care Unavailab Rene Nobles Referring Unavailable Anjel, Dr. Sera Frost Primary Care Unavailab Rene Nobles Attending Unavailable Dr. Sera Flower Primary Care Unavailab Rene Nobles Attending Unavailable Anjel, Dr. Sera Frost Primary Care Unavailab Rene Nobles Attending Unavailable Sera Flower MD Primary Care Provider MD Sera Flower Primary Care Provider [phone] DO Jasper Martinez Emergency Provider Jasper Martinez Admitting Unavailable Jasper Martinez Attending Unavailable Sera Flower Primary Care Unavailable Rene Castro Attending Unavailable Sera Flower Primary Care Unavailable Sera Flower Consulting Rene Sauer Admitting Unavailable Sera Flower MD Unavailable Sera Flower MD Primary Care Provider RENZO WEAVER Attending Unavailable SERA FLOWER Referring Unavailable DEBBI BA Attending Unavailable HOSEA SIFUENTES Attending Unavailable SERA FLOWER Attending Unavailable SERA FLOWER Referring Unavailable SERA FLOWER Attending Unavailable BENJY ALAS Attending Unavailable BRITTANY FIGUEROA Attending Unavailable RENE CASTRO Attending Unavailable SERA [...] Hospital (1 source) Codeine Drug Allergy 4 [facility] Repository (2 sources) guaiFENesin Drug Allergy 3 Other [facility] Medications Current Medications Medication Drug Class(es) Dates Sig (Normalized) Sig (Original) albuterol 0.83 mg/ml inhalation solution (14 sources) beta2-Adrenergic Agonist Start: 06-21-2023 albuterol (2.5 MG/3ML) 0.083% nebulizer solution Indications: Chronic obstructive pulmonary disease, unspecified COPD type ([facility]) Take 3 mL (2.5 mg) by nebulization [...] 12:00am Start: 01-17-2022 take 1 capsule by [facility] three times daily for cough benzonatate (TESSALON PERLE) 100 mg capsule take 1 capsule by mouth three times a day if needed for cough SWALLOW WHOLE 0 01/17/2022 Active Comment on above: take 1 capsule by [facility] three times a day if needed for [...] gretchen y cholecalciferol (Vitamin D-3) 50 MCG (1999 UT) tablet Take 1 tablet (50 mcg) [...] t ongue. omega-3 fatty acids-fish oil (One-Per-Day [place]-3) 684-1,200 mg capsule (2 sources) omega-3 fatty acids-fish oil (One-Per-Day [place]-3) 684-1,200 mg capsule Take as directed Active omega-3 fatty ac ids-fish oil (One-Per-Day [place]-3) 684-1,200 mg capsule Take as directed 0 [...] mealtime Prednisone Discontinued 60 MG PO Daily 15 September 18, 2017 11:00pm July 28, 2019 6:55am administer with food or milk rosuvastatin calcium 40 mg oral tablet (3 sources) HMG-CoA Reductase Inhibitor Start: 10-18-2023 End: 10-17-2024 take 1 tablet by mouth once daily rosuvastatin (Crestor) 40 mg tablet Indications: 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 , Mixed hyperlipidemia [...] 2018 12:00am take 1 capsule by mo ut every twenty-four hours in the morning tamsulosin [...] mg by inhalation every eight hours Ipratropium Harris Discontinued 0.5 MG INHALATION Q8H April 26, 2018 12:00am July 28, 2019 6:55am levoFLOXacin 750 mg oral tablet (2 sources) Quinolone Antimicrobial Start: 04-26-2018 End: 05-06-2018 take 1 tablet by mouth every twenty-four hours Levofloxacin (Levaquin) 750 mg tablet Discontinued 750 MG PO Q24H 03 06April 26, 2018 12:00am May 06, 2018 12:02am Magnesium (6 sources) take 1 tablet by mouth once daily Magnesium 250 MG Oral Tablet TAKE 1 TABLET DAILY. Quantity: 0 Refills: 0 Ordered: 07-Sep-2022 DO Active [place] 3 CAPS (2 sources) [place] 3 CAPS MARLEN E DIRECTED. Quantity: 0 [...] [Coronary atherosclerosis of unspecified type of vessel, holy cross or graft] Onset: 01-03-2023 03-23-2023 Chronic Disorders [...] aPTT Coag (PPP) [Time] 30.2 s 25.1-36.5 [facility] Comment on above: A hematocrit value g reater than 55% may lead to inaccurate results in coagulation testing. Patients having hematocrit values >55% require a special collection tube for coagulation studies. Please contact the laboratory at [phone] for redraw instructions. Alanine aminotransferase [En zymatic activity/volume] in Serum or PlasmaOrdered By: Jasper Martinez on 06-14-2023 ALT [Catalytic activity/Vol] 37 U/L 7-52 [facility] Albumin [Mass/volume] in Ser um or Plasma by Bromocresol green (BCG) dye binding methoOrdered By: Jasper Martinez on 06-14-2023 Albumin BCG dye [Mass/Vol] 4.1 g/dL 3.5-5.7 [facility] Alkaline phosphatase [Enzyma tic activity/volume] in Serum or PlasmaOrdered By: Jasper Martinez on 06-14-2023 ALP [Catalytic activity/Vol] 59 U/L 34-104 [facility] Aspartate aminotransferase [ Enzymatic activity/volume] in Serum or PlasmaOrdered By: Jasper Martinez on 06-14-2023 AST [Catalytic activity/Vol] 29 U/L 13-39 [facility] B-Type Natriuretic Peptideon 06-14-2023 Natriuretic peptide B (Bld) [Mass/Vol] 67.0 pg/mL Normal 5-100 [facility] Comment on above: Result Comment: PERF ORMED BY: [place] [address] PATHOLOGIST FURNITURE FABRICATOR RAPHAEL RANGEL M.D. Performed By: #### C OVID19 FLU RSV, CEPHEID NEG #### [address] Basophils Auto (Bld) [#/Vol] Ordered By: Jasper Martinez on 06-14-2023 Basophils (Bld) [#/Vol] 0.0 10*3/uL 0.0-0.2 [facility] Basophils/100 WBC Auto (Bld) Ordered By: Jasper Martinez on 06-14-2023 Basophils/100 WBC (Bld) 0.6 % . [facility] Bilirubin.total [Mass/volume ] in Serum or PlasmaOrdered By: Jasper Martinez on 06-14-2023 Bilirubin [Mass/Vol] 0.4 mg/dL 0.3-1.0 [facility] COVID CepheidOrdered By: Asya Martinez on 06-14-2023 SARS-CoV-2 (COVID-19) Ab IA Ql Negative Negative [facility] Comment on above: This is a duplicate Cepheid Xpert Xpress CoV-2/Flu/RSV Plus RNA by RT-PCR result to be used for statistical tracking purpose only. SARS-CoV-2 (COVID-19) RNA VERONA+probe Ql (Unsp spec) [facility] COVID-19 / Flu A/B / RSV [...] or Cepheid Disclaimer revoked sooner. PERFORMED BY: [place] [address] PATHOLOGIST FURNITURE FABRICATOR RAPHAEL RANGEL M.D. Normal [facility] Comment on above: Performed By: #### C OVID19 FLU RSV, CEPHEID NEG #### [place] [id number] [facility] Calcium [Mass/volume] in Ser um or PlasmaOrdered By: Jasper Martinez on 06-14-2023 Calcium [Mass/Vol] 9.0 mg/dL 8.6-10.3 [facility] Carbon dioxide, total [Moles /volume] in Serum or PlasmaOrdered By: Jasper Martinez on 06-14-2023 CO2 [Moles/Vol] 23.4 mmol/L 21.0-31.0 [facility] Cepheid COVID PCR Negativeon 06-14-2023 SARS-CoV-2 (COVID-19) RNA VERONA+probe Ql (Unsp spec) Negative Normal Negative [facility] Comment on above: Result Comment: This is a duplicate Cepheid Xpert Xpress CoV-2/Flu/RSV Plus RNA by RT-PCR result to be used for statistical tracking purpose only. PERFORMED BY: [address] [id number] PATHOLOGIST FURNITURE FABRICATOR RAPHAEL RANGEL M.D. Performed By: #### C OVID19 FLU RSV, CEPHEID NEG #### [facility] [address] Chloride [Moles/volume] in S taylor or PlasmaOrdered By: Jasper Martinez on 06-14-2023 Chloride [Moles/Vol] 105 mmol/L 98-107 [facility] Complete Blood Count Auto Di ffon 06-14-2023 Basophils (Bld) [#/Vol] 0.0 10*3/uL Normal 0.0-0.2 [facility] Comment on above: Result Comment: PERF ORMED BY: [place] [address] PATHOLOGIST FURNITURE FABRICATOR RAPHAEL RANGEL M.D. Performed By: #### B SUPERVISOR INSECTICIDE, CK, MG, CBC, HS TROP, PTT, PT, CMP #### [address] Basophils/100 WBC (Bld) 0.6 % Normal . [facility] Comment on above: Performed By: #### B SUPERVISOR INSECTICIDE, CK, MG, CBC, HS TROP, PTT, PT, CMP #### [address] Eosinophils (Bld) [#/Vol] 0.8 10*3/uL High 0.0-0.45 [facility] Comment on above: Performed By: #### B SUPERVISOR INSECTICIDE, CK, MG, CBC, HS TROP, PTT, PT, CMP #### [address] Eosinophils/100 WBC (Bld) 9.6 % Normal . [facility] Comment on above: Performed By: #### B SUPERVISOR INSECTICIDE, CK, MG, CBC, HS TROP, PTT, PT, CMP #### [address] Erythrocyte distribution width (RBC) [Ratio] 14.4 % Normal 12.0-14.8 [facility] Comment on above: Performed By: #### B SUPERVISOR INSECTICIDE, CK, MG, CBC, HS TROP, PTT, PT, CMP #### [address] Hematocrit (Bld) [Volume fraction] 40.8 % Normal 38.8-50.0 [facility] Comment on above: Performed By: #### B SUPERVISOR INSECTICIDE, CK, MG, CBC, HS TROP, PTT, PT, CMP #### [address] Hemoglobin (Bld) [Mass/Vol] 14.3 g/dL Normal 13.0-17.0 [facility] Comment on above: Performed By: #### B SUPERVISOR INSECTICIDE, CK, MG, CBC, HS TROP, PTT, PT, CMP #### [address] Lymphocytes (Bld) [#/Vol] 1.5 10*3/uL Normal 1.00-4.8 [facility] Comment on above: Performed By: #### B SUPERVISOR INSECTICIDE, CK, MG, CBC, HS TROP, PTT, PT, CMP #### [address] Lymphocytes/100 WBC (Bld) 18.5 % Normal . [facility] Comment on above: Performed By: #### B SUPERVISOR INSECTICIDE, CK, MG, CBC, HS TROP, PTT, PT, CMP #### [address] MCH (RBC) [Entitic mass] 30.1 pg Normal 27.5-35.2 [facility] Comment on above: Performed By: #### B SUPERVISOR INSECTICIDE, CK, MG, CBC, HS TROP, PTT, PT, CMP #### [address] MCV (RBC) [Entitic vol] 86.2 fL Normal 83.5-101 [facility] Comment on above: Performed By: #### B SUPERVISOR INSECTICIDE, CK, MG, CBC, HS TROP, PTT, PT, CMP #### [address] Mean Corpuscular HGB Conc 34.9 g/dL Normal 32.5-35.6 [facility] Comment on above: Performed By: #### B SUPERVISOR INSECTICIDE, CK, MG, CBC, HS TROP, PTT, PT, CMP #### [address] Monocytes (Bld) [#/Vol] 0.8 10*3/uL Normal 0.0-0.8 [facility] Comment on above: Performed By: #### B SUPERVISOR INSECTICIDE, CK, MG, CBC, HS TROP, PTT, PT, CMP #### [address] Monocytes/100 WBC (Bld) 16.39 % Normal 0.00-20.00 [facility] Comment on above: Performed By: #### B SUPERVISOR INSECTICIDE, CK, MG, CBC, HS TROP, PTT, PT, CMP #### [address] Monocytes/100 WBC (Bld) 10.1 % Normal . [facility] Comment on above: Performed By: #### B SUPERVISOR INSECTICIDE, CK, MG, CBC, HS TROP, PTT, PT, CMP #### [address] Neutrophils (Bld) [#/Vol] 4.9 10*3/uL Normal 1.8-7.7 [facility] Comment on above: Performed By: #### B SUPERVISOR INSECTICIDE, CK, MG, CBC, HS TROP, PTT, PT, CMP #### [address] Neutrophils/100 WBC (Bld) 61.2 % Normal . [facility] Comment on above: Performed By: #### B SUPERVISOR INSECTICIDE, CK, MG, CBC, HS TROP, PTT, PT, CMP #### [address] NRBC% 0.1 /100{WBC} Normal 0-0.5 [facility] Comment on above: Performed By: #### B SUPERVISOR INSECTICIDE, CK, MG, CBC, HS TROP, PTT, PT, CMP #### [address] Platelet mean volume (Bld) [Entitic vol] 8.4 fL Normal 6.6-10.1 [facility] Comment on above: Performed By: #### B SUPERVISOR INSECTICIDE, CK, MG, CBC, HS TROP, PTT, PT, CMP #### [facility] [address] Platelets (Bld) [#/Vol] 181 10*3/uL Normal 150-450 [facility] Comment on above: Performed By: #### B SUPERVISOR INSECTICIDE, CK, MG, CBC, HS TROP, PTT, PT, CMP #### [facility] [address] RBC (Bld) [#/Vol] 4.74 10*6/uL Normal 3.90-5.60 [facility] Comment on above: Performed By: #### B SUPERVISOR INSECTICIDE, CK, MG, CBC, HS TROP, PTT, PT, CMP #### [address] WBC (Bld) [#/Vol] 8.1 10*3/uL Normal 4.1-10.5 [facility] Comment on above: Performed By: #### B SUPERVISOR INSECTICIDE, CK, MG, CBC, HS TROP, PTT, PT, CMP #### [facility] [address] Comprehensive Metabolic Pane maria esther 06-14-2023 Albumin [Mass/Vol] 4.1 g/dL Normal 3.5-5.7 [facility] Comment on above: Performed By: #### B SUPERVISOR INSECTICIDE, CK, MG, CBC, HS TROP, PTT, PT, CMP #### [facility] [address] Albumin/Globulin [Mass ratio] 1.6 {ratio} Normal [facility] Comment on above: Performed By: #### B SUPERVISOR INSECTICIDE, CK, MG, CBC, HS TROP, PTT, PT, CMP #### [address] ALP [Catalytic activity/Vol] 59 U/L Normal 34-104 [facility] Comment on above: Performed By: #### B SUPERVISOR INSECTICIDE, CK, MG, CBC, HS TROP, PTT, PT, CMP #### [facility] [address] ALT [Catalytic activity/Vol] 37 U/L Normal 7-52 [facility] Comment on above: Performed By: #### B SUPERVISOR INSECTICIDE, CK, MG, CBC, HS TROP, PTT, PT, CMP #### [address] Anion gap [Moles/Vol] 11.5 mmol/L Normal 6.0-15.0 [facility] Comment on above: Performed By: #### B SUPERVISOR INSECTICIDE, CK, MG, CBC, HS TROP, PTT, PT, CMP #### [address] AST [Catalytic activity/Vol] 29 U/L Normal 13-39 [facility] Comment on above: Performed By: #### B SUPERVISOR INSECTICIDE, CK, MG, CBC, HS TROP, PTT, PT, CMP #### [address] Bilirubin [Mass/Vol] 0.4 mg/dL Normal 0.3-1.0 [facility] Comment on above: Performed By: #### B SUPERVISOR INSECTICIDE, CK, MG, CBC, HS TROP, PTT, PT, CMP #### [address] Calcium [Mass/Vol] 9.0 mg/dL Normal 8.6-10.3 [facility] Comment on above: Performed By: #### B SUPERVISOR INSECTICIDE, CK, MG, CBC, HS TROP, PTT, PT, CMP #### [address] Chloride [Moles/Vol] 105 mmol/L Normal 98-107 [facility] Comment on above: Performed By: #### B SUPERVISOR INSECTICIDE, CK, MG, CBC, HS TROP, PTT, PT, CMP #### [address] CO2 [Moles/Vol] 23.4 mmol/L Normal 21.0-31.0 [facility] Comment on above: Performed By: #### B SUPERVISOR INSECTICIDE, CK, MG, CBC, HS TROP, PTT, PT, CMP #### [facility] [address] Creatinine [Mass/Vol] 0.89 mg/dL Normal 0.70-1.30 [facility] Comment on above: Performed By: #### B SUPERVISOR INSECTICIDE, CK, MG, CBC, HS TROP, PTT, PT, CMP #### [facility] [address] Creatinine Clr Calc Pharmacy 92.42 [facility] Comment on above: Performed By: #### B SUPERVISOR INSECTICIDE, CK, MG, CBC, HS TROP, PTT, PT, CMP #### [facility] [address] GFR/1.73 sq M.predicted MDRD (S/P/Bld) [Vol rate/Area] mL/min/{1.73_m2} [facility] Comment on above: Performed By: #### B SUPERVISOR INSECTICIDE, CK, MG, CBC, HS TROP, PTT, PT, CMP #### [address] Globulin (S) [Mass/Vol] 2.5 g/dL [facility] Comment on above: Performed By: #### B SUPERVISOR INSECTICIDE, CK, MG, CBC, HS TROP, PTT, PT, CMP #### [address] Glucose [Mass/Vol] 144 mg/dL High 70-100 [facility] Comment on above: Result Comment: [facility] Glucose Reference Range is dependent on time and content of last meal. Glucose of more than 200 mg/dL in a nonstressed, ambulatory subject supports the diagnosis of Diabetes Mellitus. ADA recommended reference range Performed By: #### B SUPERVISOR INSECTICIDE, CK, MG, CBC, HS TROP, PTT, PT, CMP #### [address] Potassium [Moles/Vol] 3.9 mmol/L Normal 3.5-5.1 [facility] Comment on above: Performed By: #### B SUPERVISOR INSECTICIDE, CK, MG, CBC, HS TROP, PTT, PT, CMP #### [address] [place] [address] [place] Protein [Mass/Vol] 6.6 g/dL Normal 6.4-8.9 [facility] Comment on above: Performed By: #### B SUPERVISOR INSECTICIDE, CK, MG, CBC, HS TROP, PTT, PT, CMP #### [facility] [address] Sodium [Moles/Vol] 136 mmol/L Normal 136-145 [facility] Comment on above: Performed By: #### B SUPERVISOR INSECTICIDE, CK, MG, CBC, HS TROP, PTT, PT, CMP #### [facility] [address] Urea nitrogen [Mass/Vol] 12 mg/dL Normal 7-25 [facility] Comment on above: Performed By: #### B SUPERVISOR INSECTICIDE, CK, MG, CBC, HS TROP, PTT, PT, CMP #### [facility] [address] Creatine Kinaseon 06-14-2023 CK [Catalytic activity/Vol] 185 U/L Normal 30-223 [facility] Comment on above: Performed By: #### C OVID19 FLU RSV, CEPHEID NEG #### [address] Creatine kinase [Enzymatic a ctivity/volume] in Serum or PlasmaOrdered By: Jasper Martinez on 06-14-2023 CK [Catalytic activity/Vol] 185 U/L 30-223 [facility] Creatinine [Mass/volume] in Serum or PlasmaOrdered By: Jasper Martinez on 06-14-2023 Creatinine [Mass/Vol] 0.89 mg/dL 0.70-1.30 [facility] ECG 12 lead ECGon 06-14-2023 ECG 12 lead ECG [facility] [place] [address] [place] [address] Electrocardiograph Report Signed Patient: Demarcus Panchal MR#: [id number] : 1955 Acct:[id number] Age/Sex: 68 / M ADM Date: 06/14/23 Loc: ER Room: Type: [facility] ER Attending Dr: Ordering Provider: Jasper [...] sinus rhythm Confirmed by Jasper MARTINEZ DO ([id number]) on 06/14/2023 2:25:14 PM Referred By: Electronically Signed By:Jasper MARTINEZ DO Transcribed By: MUS Signed By Jasper Martinez DO 0 06/14/23 1425 Normal [facility] Eosinophils Auto (Bld) [#/Vo l]Ordered By: Jasper Martinez on 06-14-2023 Eosinophils (Bld) [#/Vol] 0.8 10*3/uL 0.0-0.45 [facility] Eosinophils/100 WBC Auto (Bl d)Ordered By: Jasper Martinez on 06-14-2023 Eosinophils/100 WBC (Bld) 9.6 % . [facility] Erythrocyte distribution wid th Auto (RBC) [Ratio]Ordered By: Jasper Martinez on 06-14-2023 Erythrocyte distribution width (RBC) [Ratio] 14.4 % 12.0-14.8 [facility] Globulin Calc (S) [Mass/Vol] Ordered By: Jasper Martinez on 06-14-2023 Globulin (S) [Mass/Vol] 2.5 g/dL [facility] Glucose [Mass/volume] in Ser um or PlasmaOrdered By: Jasper Martinez on 06-14-2023 Glucose [Mass/Vol] 144 mg/dL 70-100 [facility] Comment on above: ADA recommended refe rence rangeRandom Glucose Reference Range is dependent on time and content of last meal. Glucose of more than 200 mg/dL in a nonstressed, ambulatory subject supports the diagnosis of Diabetes Mellitus. Hematocrit Auto (Bld) [Volum e fraction]Ordered By: Jasper Martinez on 06-14-2023 Hematocrit (Bld) [Volume fraction] 40.8 % 38.8-50.0 [facility] Hemoglobin [Mass/volume] in BloodOrdered By: Jasper Martinez on 06-14-2023 Hemoglobin (Bld) [Mass/Vol] 14.3 g/dL 13.0-17.0 [facility] INR in Platelet poor plasma by Coagulation assayOrdered By: Jasper Martinez on 06-14-2023 INR Coag (PPP) [Relative time] 1.1 {INR} [facility] Comment on above: INR Therapeutic Rang [...] RBC Auto (Bld) [#/Vol] 8.1 10*3/uL 4.1-10.5 [facility] Lymphocytes Auto (Bld) [#/Vo l]Ordered By: Jasper Martinez on 06-14-2023 Lymphocytes (Bld) [#/Vol] 1.5 10*3/uL 1.00-4.8 [facility] Lymphocytes/100 WBC Auto (Bl d)Ordered By: Jasper Martinez on 06-14-2023 Lymphocytes/100 WBC (Bld) 18.5 % . [facility] MCH Auto (RBC) [Entitic mass ]Ordered By: Jasper Martinez on 06-14-2023 MCH (RBC) [Entitic mass] 30.1 pg 27.5-35.2 [facility] MCHC Auto (RBC) [Mass/Vol]Or dered By: Jasper Martinez on 06-14-2023 MCHC (RBC) [Mass/Vol] 34.9 g/dL 32.5-35.6 [facility] MCV Auto (RBC) [Entitic vol] Ordered By: Jasper Martinez on 06-14-2023 MCV (RBC) [Entitic vol] 86.2 fL 83.5-101 [facility] Magnesiumon 06-14-2023 Magnesium [Mass/Vol] 2.0 mg/dL Normal 1.9-2.7 [facility] Comment on above: Result Comment: PERF ORMED BY: [facility] [address] [place] [address] PATHOLOGIST FURNITURE FABRICATOR RAPHAEL RANGEL M.D. Performed By: #### B SUPERVISOR INSECTICIDE, CK, MG, CBC, HS TROP, PTT, PT, CMP #### [facility] [address] [place] [id number] [facility] Magnesium [Mass/volume] in S taylor or PlasmaOrdered By: Jasper Martinez on 06-14-2023 Magnesium [Mass/Vol] 2.0 mg/dL 1.9-2.7 [facility] Monocyte distribution width [Entitic volume] in Blood by AutomatedOrdered By: Jasper Martinez on 06-14-2023 Monocyte distribution width Auto (Bld) [Entitic vol] 16.39 % 0.00-20.00 [facility] Monocytes Auto (Bld) [#/Vol] Ordered By: Jasper Martinez on 06-14-2023 Monocytes (Bld) [#/Vol] 0.8 10*3/uL 0.0-0.8 [facility] Monocytes/100 WBC Auto (Bld) Ordered By: Jasper Martinez on 06-14-2023 Monocytes/100 WBC (Bld) 10.1 % . [facility] Natriuretic peptide B [Mass/ Vol]Ordered By: Jasper Martinez on 06-14-2023 Natriuretic peptide B (Bld) [Mass/Vol] 67.0 pg/mL 5-100 [facility] Neutrophils Auto (Bld) [#/Vo l]Ordered By: Jasper Martinez on 06-14-2023 Neutrophils (Bld) [#/Vol] 4.9 10*3/uL 1.8-7.7 [facility] Neutrophils/100 WBC Auto (Bl d)Ordered By: Jasper Martinez on 06-14-2023 Neutrophils/100 WBC (Bld) 61.2 % . [facility] No Panel InformationOrdered By: Jasper Martinez on 06-14-2023 Estimated GFR (CKD-EPI) > 60.0 mL/Min [facility] Creatinine Clearance (Chem 92.42 [facility] Nucleated erythrocytes [Pres ence] in Blood by Automated countOrdered By: Jasper Martinez on 06-14-2023 Nucleated RBC Auto Ql (Bld) 0.1 /100{WBC} 0-0.5 [facility] Partial Thromboplastin Timeo n 06-14-2023 aPTT Coag (Bld) [Time] 30.2 s Normal 25.1-36.5 [facility] Comment on above: Result Comment: A he matocrit value greater than 55% may lead to inaccurate results in coagulation testing. Patients having hematocrit values >55% require a special collection tube for coagulation studies. Please contact the laboratory at [phone] for redraw instructions. PERFORMED BY: [place] [address] PATHOLOGIST FURNITURE FABRICATOR RAPHAEL RANGEL M.D. Performed By: #### C OVID19 FLU RSV, CEPHEID NEG #### [address] Platelet mean volume Auto (B ld) [Entitic vol]Ordered By: Jasper Martinez on 06-14-2023 Platelet mean volume (Bld) [Entitic vol] 8.4 fL 6.6-10.1 [facility] Platelets Auto (Bld) [#/Vol] Ordered By: Jasper Martinez on 06-14-2023 Platelets (Bld) [#/Vol] 181 10*3/uL 150-450 [facility] Potassium [Moles/volume] in Serum or PlasmaOrdered By: Jasper Martinez on 06-14-2023 Potassium [Moles/Vol] 3.9 mmol/L 3.5-5.1 [facility] Protein [Mass/volume] in Ser um or PlasmaOrdered By: Jasper Martinez on 06-14-2023 Protein [Mass/Vol] 6.6 g/dL 6.4-8.9 [facility] Prothrombin Time INRon 06-14 INR Coag (PPP) [Relative time] 1.1 {INR} Normal [facility] Comment on above: Result Comment: INR [...] 3 - 4.5 Performed By: #### B SUPERVISOR INSECTICIDE, CK, MG, CBC, HS TROP, PTT, PT, CMP #### [facility] [address] [place] [id number] [facility] PT Coag (PPP) [Time] 12.1 s Normal 9.0-12.9 [facility] Comment on above: Result Comment: A he matocrit value greater than 55% may lead to inaccurate results in coagulation testing. Patients having hematocrit values >55% require a special collection tube for coagulation studies. Please contact the laboratory at [phone] for redraw instructions. Performed By: #### B SUPERVISOR INSECTICIDE, CK, MG, CBC, HS TROP, PTT, PT, CMP #### [facility] [address] [id number] [facility] Prothrombin time (PT)Ordered By: Jasper Martinez on 06-14-2023 PT Coag (PPP) [Time] 12.1 s 9.0-12.9 [facility] Comment on above: A hematocrit value g reater than 55% may lead to inaccurate results in coagulation testing. Patients having hematocrit values >55% require a special collection tube for coagulation studies. Please contact the laboratory at [phone] for redraw instructions. RBC Auto (Bld) [#/Vol]Ordere d By: Jasper Martinez on 06-14-2023 RBC (Bld) [#/Vol] 4.74 10*6/uL 3.90-5.60 [facility] Serum or plasma albumin/glob ulin mass ratioOrdered By: Jasper Martinez on 06-14-2023 Albumin/Globulin [Mass ratio] 1.6 {ratio} [facility] Serum or plasma anion gap de terminationOrdered By: Jasper Martinez on 06-14-2023 Anion gap [Moles/Vol] 11.5 mmol/L 6.0-15.0 [facility] Sodium [Moles/volume] in Ser um or PlasmaOrdered By: Jasper Martinez on 06-14-2023 Sodium [Moles/Vol] 136 mmol/L 136-145 [facility] Troponin I High Sensitivityo n 06-14-2023 Troponin I High Sensitivity 26.8 pg/mL High 0.0-20.0 [facility] Comment on above: Result Comment: PERF ORMED BY: [place] [address] PATHOLOGIST FURNITURE FABRICATOR RAPHAEL RANGEL M.D. Performed By: #### C OVID19 FLU RSV, CEPHEID NEG #### [facility] [address] Troponin I.cardiac [Mass/vol ume] in Serum or Plasma by Detection limit <= 0.01 ng/Ordered By: Jasper Martinez on 06-14-2023 Troponin I.cardiac DL <= 0.01 ng/mL [Mass/Vol] 26.8 pg/mL 0.0-20.0 [facility] Urea nitrogen [Mass/volume] in Serum or PlasmaOrdered By: Jasper Martinez on 06-14-2023 Urea nitrogen [Mass/Vol] 12 mg/dL 7-25 [facility] WBC Auto (Bld) [#/Vol]Ordere d By: Jasper Martinez on 06-14-2023 WBC (Bld) [#/Vol] 8.1 10*3/uL 4.1-10.5 [facility] XR chest 2V*on 06-14-2023 XR chest 2V* [facility] [address] [place] [address] XRay Report Signed Patient: Demarcus Panchal MR#: [id number] 652 : 1955 Acct:[id number] Age/Sex: 68 / M ADM Date: 06/14/23 Loc: ER Room: Type: [facility] ER Attending Dr: Copies to: Jasper [...] Salvador Nguyễn M.D.06/14/2023 1:59 PM Dictation Location: [facility]- Transcribed By: [facility] 06/14/23 1359 Dictated By: Salvador Nguyễn DO 06/14/23 1354 Signed By: 06/14/23 1359 Normal [facility] Cardiac echo study Procedure on 03-20-2023 Ordered by an unspec ified provider. [facility] Alanine aminotransferase [En zymatic activity/volume] in Serum or PlasmaOrdered By: Sera Flower on 02-05-2023 ALT [Catalytic activity/Vol] 51 U/L 7-52 [facility] Albumin [Mass/volume] in Ser um or Plasma by Bromocresol green (BCG) dye binding methoOrdered By: Sera Flower on 02-05-2023 Albumin BCG dye [Mass/Vol] 4.4 g/dL 3.5-5.7 [facility] Alkaline phosphatase [Enzyma tic activity/volume] in Serum or PlasmaOrdered By: Sera Flower on 02-05-2023 ALP [Catalytic activity/Vol] 61 U/L 34-104 [facility] Aspartate aminotransferase [ Enzymatic activity/volume] in Serum or PlasmaOrdered By: Sera Flower on 02-05-2023 AST [Catalytic activity/Vol] 39 U/L 13-39 [facility] Bilirubin.total [Mass/volume ] in Serum or PlasmaOrdered By: Sera Flower on 02-05-2023 Bilirubin [Mass/Vol] 0.7 mg/dL 0.3-1.0 [facility] Calcium [Mass/volume] in Ser um or PlasmaOrdered By: Sera Flower on 02-05-2023 Calcium [Mass/Vol] 9.1 mg/dL 8.6-10.3 [facility] Carbon dioxide, total [Moles /volume] in Serum or PlasmaOrdered By: Sera Flower on 02-05-2023 CO2 [Moles/Vol] 28.0 mmol/L 21.0-31.0 [facility] Chloride [Moles/volume] in S taylor or PlasmaOrdered By: Sera Flower on 02-05-2023 Chloride [Moles/Vol] 103 mmol/L 98-107 [facility] Comprehensive Metabolic Pane maria esther 02-05-2023 Albumin [Mass/Vol] 4.4 g/dL Normal 3.5-5.7 [facility] Comment on above: Order Comment: PT IS FASTING Performed By: #### C MP #### [facility] [address] Albumin/Globulin [Mass ratio] 2.6 {ratio} Normal [facility] Comment on above: Order Comment: PT IS FASTING Performed By: #### C MP #### [facility] [address] ALP [Catalytic activity/Vol] 61 U/L Normal 34-104 [facility] Comment on above: Order Comment: PT IS FASTING Result Comment: PERF ORMED BY: [place] [address] PATHOLOGIST FURNITURE FABRICATOR RAPHAEL RANGEL M.D. Performed By: #### C MP #### [facility] [address] ALT [Catalytic activity/Vol] 51 U/L Normal 7-52 [facility] Comment on above: Order Comment: PT IS FASTING Performed By: #### C MP #### [facility] [address] Anion gap [Moles/Vol] 11.4 mmol/L Normal 6.0-15.0 [facility] Comment on above: Order Comment: PT IS FASTING Performed By: #### C MP #### [facility] [address] AST [Catalytic activity/Vol] 39 U/L Normal 13-39 [facility] Comment on above: Order Comment: PT IS FASTING Performed By: #### C MP #### [facility] [address] [id number] [facility] Bilirubin [Mass/Vol] 0.7 mg/dL Normal 0.3-1.0 [facility] Comment on above: Order Comment: PT IS FASTING Performed By: #### C MP #### [facility] [address] Calcium [Mass/Vol] 9.1 mg/dL Normal 8.6-10.3 [facility] Comment on above: Order Comment: PT IS FASTING Performed By: #### C MP #### [facility] [address] Chloride [Moles/Vol] 103 mmol/L Normal 98-107 [facility] Comment on above: Order Comment: PT IS FASTING Performed By: #### C MP #### [address] CO2 [Moles/Vol] 28.0 mmol/L Normal 21.0-31.0 [facility] Comment on above: Order Comment: PT IS FASTING Performed By: #### C MP #### [facility] [address] Creatinine [Mass/Vol] 1.00 mg/dL Normal 0.70-1.30 [facility] Comment on above: Order Comment: PT IS FASTING Performed By: #### C MP #### [facility] [address] [place] [address] [place] GFR/1.73 sq M.predicted MDRD (S/P/Bld) [Vol rate/Area] mL/min/{1.73_m2} [facility] Comment on above: Order Comment: PT IS FASTING Performed By: #### C MP #### [facility] [address] [place] [address] [place] Globulin (S) [Mass/Vol] 1.7 g/dL [facility] Comment on above: Order Comment: PT IS FASTING Performed By: #### C MP #### [facility] [address] [place] [address] [place] Glucose [Mass/Vol] 93 mg/dL Normal 70-100 [facility] Comment on above: Order Comment: PT IS FASTING Result Comment: [place] Glucose Reference Range is dependent on time and content of last meal. Glucose of more than 200 mg/dL in a nonstressed, ambulatory subject supports the diagnosis of Diabetes Mellitus. ADA recommended reference range Performed By: #### C MP #### [facility] [address] Potassium [Moles/Vol] 4.4 mmol/L Normal 3.5-5.1 [facility] Comment on above: Order Comment: PT IS FASTING Performed By: #### C MP #### [facility] [address] [place] [address] [place] Protein [Mass/Vol] 6.1 g/dL Low 6.4-8.9 [facility] Comment on above: Order Comment: PT IS FASTING Performed By: #### C MP #### [facility] [address] [place] [address] [place] Sodium [Moles/Vol] 138 mmol/L Normal 136-145 [facility] Comment on above: Order Comment: PT IS FASTING Performed By: #### C MP #### [facility] [address] [place] [address] [place] Urea nitrogen [Mass/Vol] 15 mg/dL Normal 7-25 [facility] Comment on above: Order Comment: PT IS FASTING Performed By: #### C MP #### [facility] [address] [id number] [place] Creatinine [Mass/volume] in Serum or PlasmaOrdered By: Sera Flower on 02-05-2023 Creatinine [Mass/Vol] 1.00 mg/dL 0.70-1.30 [facility] ECH echo transthoracicon [facility] echo transthoracic [facility] [address] [place] [address] Echocardiogram Signed Patient: Demarcus Panchal MR#: [id number] 652 : 1955 Acct:[id number] Age/Sex: 68 / M ADM Date: 02/05/23 Loc: Room: Type: [facility] Attending Dr: Rene Castro MD Ordering Provider: Rene Castro MD, [facility] Date of Service: 02/05/23/ ECH/[facility] echo transthoracic: HTN, ISCHEMIC CARDIOMYOPATHY Copies to: Rene Castro MD, [facility] BSA: 2.2 m2 BP: 141/82 mmHg HR: [...] 02/05/23 1042 Signed By: Rene Castro MD, [facility] 02/05/23 1207 Normal [facility] Globulin Calc (S) [Mass/Vol] Ordered By: Sera Flower on 02-05-2023 Globulin (S) [Mass/Vol] 1.7 g/dL [facility] Glucose [Mass/volume] in Ser um or PlasmaOrdered By: Sera Flower on 02-05-2023 Glucose [Mass/Vol] 93 mg/dL 70-100 [facility] Comment on above: ADA recommended refe rence rangeRandom Glucose Reference Range is dependent on time and content of last meal. Glucose of more than 200 mg/dL in a nonstressed, ambulatory subject supports the diagnosis of Diabetes Mellitus. No Panel InformationOrdered By: Sera Flower on 02-05-2023 Estimated GFR (CKD-EPI) > 60.0 mL/Min [facility] Creatinine Clearance (Chem N/A [facility] No Panel Informationon 02-05 [facility] daniel 250 DO Work Phone: Potassium [Moles/volume] in Serum or PlasmaOrdered By: Sera Flower on 02-05-2023 Potassium [Moles/Vol] 4.4 mmol/L 3.5-5.1 [facility] Protein [Mass/volume] in Ser um or PlasmaOrdered By: Sera Flower on 02-05-2023 Protein [Mass/Vol] 6.1 g/dL 6.4-8.9 [facility] Serum or plasma albumin/glob ulin mass ratioOrdered By: Sera Flower on 02-05-2023 Albumin/Globulin [Mass ratio] 2.6 {ratio} [facility] Serum or plasma anion gap de terminationOrdered By: Sera Flower on 02-05-2023 Anion gap [Moles/Vol] 11.4 mmol/L 6.0-15.0 [facility] Sodium [Moles/volume] in Ser um or PlasmaOrdered By: Sera Flower on 02-05-2023 Sodium [Moles/Vol] 138 mmol/L 136-145 [facility] Urea nitrogen [Mass/volume] in Serum or PlasmaOrdered By: Sera Flower on 02-05-2023 Urea nitrogen [Mass/Vol] 15 mg/dL 7- [facility] CARDIAC STRESS/REST INJE CTIONon 01-03-2023 [facility] CARDIAC STRESS/REST INJECTION Patient Name: DEMARCUS PANCHAL STUDY: MYOCARDIAL PERFUSION STRESS TEST WITH LEXISCAN Performing facility: [facility], [address] [place] [address], [address], [address] Provider: Rene Castro MD, [facility] PCP: Dr. Hunter Flower Supervising provider: Danna Davis DO, [facility] INDICATION: CAD; HTN Hyperlipidemia Ischemic cardiomyopathy HISTORY: Gender: M; Age: 68 y/o ; Height: 172.72 cm; Weight: 788.4344799 kg. CAD; High Cholesterol; HTN; Quit smoking 38 years ago. Cardiac catheterization on 2009. PTCA on 2009. COMPARISON: Previous nuclear testing completed at [facility]. ACCESSION NUMBER(S): [id number]; [id number]; [id number] ORDERING CLINICIAN: RENE CASTRO TECHNIQUE: TWO DAY [...] Electronically signed by: RENE CASTRO MD Normal [facility] No Panel Informationon 01-03 Normal -[facility] Heart-SandArrogene daniel 250 DO Work Phone: Office Visit [...] Weight Tips; Status:Complete - Retrospective Authorization; Done: [id number] Some eating tips that can help you lose weight.; Status:Complete - Retrospective Authorization; Done: [id number] Essential hypertension, Ischemic cardiomyopathy Renew: Carvedilol 6.25 MG Oral Tablet (Coreg); TAKE 1 TABLET TWICE DAILY WITH MEALS SocHx: Former smoker Stop: Losartan Potassium 25 MG Oral Tablet Tobacco Use Screening; Status:Complete; Done: [id number] Unlinked Stop: hydroCHLOROthiazide 25 MG Oral Tablet [...] emphasis on low-calorie diet Rene Castro MD, [facility] Surgical History Problems History of Coronary artery [...] 1 CAPSULE Daily Vitamin D3 50 MCG (2000 UT) Oral TabletTake 1 tablet daily Vitamin E 400 UNIT Oral TabletTAKE 1 TABLET DAILY. Zinc 30 MG Oral TabletTAKE 1 TABLET DAILY. Allergies Medication codeine Recorded By: Kelly Martin; 09/07/2022 11:30:47 AM Social History Problems Caffeine use (V49.89) (Z78.9) 5 CUPS OF COFFEE DAILY Former smoker (V15.82) (Z87.891) QUIT IN 1984 No a (more content not included)... Normal indeni Tobacco Screening.on Adult depression screening assessment No [facility]-[place] 250 DO Work Phone: Fall risk assessment a) No falls within the last year [facility]-[place] 250 DO Work Phone: Tobacco use status [facility] b) No [facility]-Cardiol[facility] gy-[place] 250 DO Work Phone: MRI Soft Tissue [...] by Ethan Walsh on 07/16/2022 1246 Normal [facility] Preparator MRI Brain w/o + w/on 023 MRI [...] by Sean Trejo on 07/01/2022 0911 Normal [facility] Preparator Shaquille 06-21-2022 KALENN Telephone (INTMLN) -- KVNGDEMARCUS ([id number]) 1955 Date Time Provider Department 06/21/22 DEANDRA BENDER During your visit today, we recorded the following information about you: Delores Mccollum 06/21/2022 12:54 PM Signed [facility] called today. : 1955 Allergies: Codeine, Codeine-Guaifenesin, and Guaifenesin (home) [phone] (cell) Reason for call: Sasha F:[phone] Asking for the MRI orders and office notes to be faxed over to [facility]. Patient will be having them done there. Patient last appointment: Visit date not found The patients preferred pharmacy has been captured for this encounter? not asked Delores Mccollum Orquidea Ryan [facility] [place]2022 2:03 PM Signed Notes and MRI [...] Status:Closed by ORQUIDEA SIBLEY on 06/21/22 Normal [facility] XR Ribs w/ PA Chest Left*on [...] by Ethan Walsh on 03/13/2022 1254 Normal [facility] XR Chest 2 Views*on 01-18-20 22 XR Chest 2 Views* COMPARISON: none TECHNIQUE: Upright PA and lateral views of the chest were obtained. FINDINGS: Heart is normal in size. Lungs are clear and well expanded. No pleural effusion or pneumothorax. The bony thorax is unremarkable. IMPRESSION: NO ACUTE CARDIOPULMONARY ABNORMALITY. Report reported and signed by AMALIA LOGAN on 01/17/2022 1243 Normal [facility] Specialist Tobacco Screening.on 022 Adult depression screening assessment No [facility]-Sandu daniel 250 DO Work Phone: Fall risk assessment a) No falls within the last year [facility] daniel 250 DO Work Phone: Tobacco use status [facility] b) No [facility] daniel 250 DO Work Phone: CT Chest [...] by AMALIA LOGAN on 08/04/2021 1346 Normal [facility] Specialist Complete Blood Count with Au to Diffon 07-29-2021 Basophils (Bld) [#/Vol] 0.05 10*3/uL Normal 0.00-0.20 [facility] Comment on above: Performed By: #### C MP, CBCAD #### [facility] [address] [place], [place] [id number] Basophils/100 WBC (Bld) 0.8 % Normal [facility] Specialist Comment on above: Performed By: #### C MP, CBCAD #### [facility] [address] [place], [place] [id number] Eosinophils (Bld) [#/Vol] 0.46 10*3/uL Normal 0.02-0.50 [facility] Specialist Comment on above: Performed By: #### C JOSE ANTONIO, CBCAD #### [facility] [address] [place], [place] [id number] Eosinophils/100 WBC (Bld) 7.7 % Normal [facility] Specialist Comment on above: Performed By: #### C JOSE ANTONIO, CBCAD #### [facility] [address] [place], [place] [id number] Erythrocyte distribution width (RBC) [Ratio] 13.3 % Normal 11.0-15.0 [facility] Specialist Comment on above: Performed By: #### C JOSE ANTONIO, CBCAD #### [facility] [address] [place], [place] [id number] Hematocrit (Bld) [Volume fraction] 42.2 % Normal 38.5-50.0 [facility] Specialist Comment on above: Performed By: #### C JOSE ANTONIO, CBCAD #### [facility] [address] [place], [place] [id number] Hemoglobin (Bld) [Mass/Vol] 14.5 g/dL Normal 13.0-17.1 [facility] Specialist Comment on above: Performed By: #### C MP, CBCAD #### [facility] [address] [place], [place] [id number] Lymphocytes (Bld) [#/Vol] 1.6 10*3/uL Normal 0.9-3.9 [facility] Specialist Comment on above: Performed By: #### C JOSE ANTONIO, CBCAD #### [facility] [address] [place], [place] [id number] Lymphocytes/100 WBC (Bld) 26.1 % Normal [facility] Comment on above: Performed By: #### C MP, CBCAD #### [facility] [address] [place], [place] [id number] MCH (RBC) [Entitic mass] 29.7 pg Normal 27.0-33.0 [facility] Comment on above: Performed By: #### C MP, CBCAD #### [facility] [address] [place], [place] [id number] MCHC (RBC) [Mass/Vol] 34.4 g/dL Normal 32.0-36.0 [facility] Comment on above: Performed By: #### C MP, CBCAD #### [facility] [address] [place], [place] [id number] MCV (RBC) [Entitic vol] 86 fL Normal 80-100 [facility] Comment on above: Performed By: #### C MP, CBCAD #### [facility] [address], [place] [id number] Monocytes (Bld) [#/Vol] 0.9 10*3/uL Normal 0.2-0.9 [facility] Comment on above: Performed By: #### C MP, CBCAD #### [facility] [address] [place], [place] [id number] Monocytes/100 WBC (Bld) 14.6 % Normal [facility] Comment on above: Performed By: #### C MP, CBCAD #### [facility] [address] [place], [place] [id number] Neutrophils (Bld) [#/Vol] 3.0 10*3/uL Normal 1.5-7.8 [facility] Comment on above: Performed By: #### C MP, CBCAD #### [facility] [address] [place], [place] [id number] Neutrophils/100 WBC (Bld) 50.5 % Normal [facility] Specialist Comment on above: Performed By: #### C MP, CBCAD #### [facility] [address] [place], [place] [id number] Platelet mean volume (Bld) [Entitic vol] 10.90 fL Normal 7.50-12.50 [facility]ist Comment on above: Performed By: #### C MP, CBCAD #### [facility] [address] [place], [place] [id number] Platelets (Bld) [#/Vol] 166 10*3/uL Normal 140-400 [facility] Specialist Comment on above: Performed By: #### C MP, CBCAD #### [facility] [address] [place], [place] [id number] RBC (Bld) [#/Vol] 4.89 10*6/uL Normal 4.20-5.80 [facility] Specialist Comment on above: Performed By: #### C JOSE ANTONIO, CBCAD #### [facility] [address] [place], [place] [id number] RDW-SD 41.2 fL Normal 37.0-50.0 [facility] Specialist Comment on above: Performed By: #### C JOSE ANTONIO, CBCAD #### [facility] [address] [place], [place] [id number] WBC (Bld) [#/Vol] 5.9 10*3/uL Normal 3.8-11.0 [facility] Specialist Comment on above: Performed By: #### C JOSE ANTONIO, CBCAD #### [facility] [address] [place], [place] [id number] Comprehensive Metabolic Pane [facility] 07-29-2021 Albumin [Mass/Vol] 4.6 g/dL Normal 3.6-5.1 [facility] Specialist Comment on above: Performed By: #### C MP, CBCAD #### [facility] [address] [place], [place] [id number] Albumin/Globulin [Mass ratio] 2.7 {ratio} High 1.0-2.5 [facility] Specialist Comment on above: Performed By: #### C MP, CBCAD #### [facility] [address] [place], [place] [id number] ALP [Catalytic activity/Vol] 74 U/L Normal 40-129 [facility] Specialist Comment on above: Performed By: #### C JOSE ANTONIO, CBCAD #### [facility] [address] [place], [place] [id number] ALT [Catalytic activity/Vol] 55 U/L High 9-46 [facility] Comment on above: Result Comment: 04/27 Female reference range changed. Performed By: #### C MP, CBCAD #### [facility] [address] [place], [place] [id number] Anion gap [Moles/Vol] 16 mmol/L Normal 12-20 [facility] Comment on above: Result Comment: Effe ctive 06/02/2019 reference range changed. Performed By: #### C MP, CBCAD #### [facility] [address] [place], [place] [id number] AST [Catalytic activity/Vol] 39 U/L Normal 10-40 [facility] Comment on above: Performed By: #### C MP, CBCAD #### [facility] [address] [place], [place] [id number] BUN/CREA 13 Ratio Normal 6-22 [facility] Comment on above: Performed By: #### C MP, CBCAD #### [facility] [address] [place], [place] [id number] Calcium [Mass/Vol] 9.0 mg/dL Normal 8.6-10.2 [facility] Comment on above: Performed By: #### C MP, CBCAD #### [facility] [address] [place], [place] [id number] Chloride [Moles/Vol] 107 mmol/L Normal 98-107 [facility] Comment on above: Performed By: #### C MP, CBCAD #### [facility] [address] [place], [place] [id number] CO2 [Moles/Vol] 20 mmol/L Normal 20-31 [facility] Comment on above: Performed By: #### C MP, CBCAD #### [facility] [address] [place], [place] [id number] Creatinine [Mass/Vol] 1.0 mg/dL Normal 0.7-1.4 [facility] Comment on above: Performed By: #### C MP, CBCAD #### [facility] [address] [place], [place] [id number] eGFRAA 94 mL/min/1.73m2 Normal >60 [facility] Specialist Comment on above: Performed By: #### C MP, CBCAD #### [facility] [address] [place], [place] [id number] eGFRNAA 78 mL/min/1.73m2 Normal >60 [facility] Specialist Comment on above: Performed By: #### C MP, CBCAD #### [facility] [address] [place], [place] [id number] Globulin (S) [Mass/Vol] 1.7 g/dL Low 1.9-3.7 [facility] Specialist Comment on above: Performed By: #### C MP, CBCAD #### [facility] [address] [place], [place] [id number] Glucose [Mass/Vol] 121 mg/dL High 65-99 [facility] Preparator Comment on above: Result Comment: For FASTING Glucose --- ADA reference ranges: Normal 65-99 mg/dl Prediabetes 100-125 Diabetes >/= 126 Performed By: #### C MP, CBCAD #### [facility] [address] [place], [place] [id number] Potassium [Moles/Vol] 4.2 mmol/L Normal 3.5-5.5 [facility] Comment on above: Performed By: #### C MP, CBCAD #### [facility] [address] [place], [place] [id number] Protein [Mass/Vol] 6.3 g/dL Normal 6.1-8.1 [facility] Preparator Comment on above: Performed By: #### C MP, CBCAD #### [facility] [address] [place], [place] [id number] Sodium [Moles/Vol] 139 mmol/L Normal 135-146 [facility] Preparator Comment on above: Performed By: #### C MP, CBCAD #### [facility] [address] [place], [place] [id number] TBIL <0.3 Normal [facility] Specialist Comment on above: Performed By: #### C MP, CBCAD #### [facility] [address] [place], [place] [id number] Urea nitrogen [Mass/Vol] 12 mg/dL Normal 7-25 [facility] Preparator Comment on above: Performed By: #### C MP, CBCAD #### [facility] [address] [place], [place] [id number] Microalbumin (with Creat)on 07-29-2021 mALB <1.2 Low [facility] Preparator Comment on above: Result Comment: Unab le to calculate mALB/Crea ratio, mALB is <1.2 mg/dL mALB reference range not established. Performed By: #### m ALBC #### [facility] [address] [place], [place] [id number] UCREA 85 mg/dL Normal 39-259 [facility] Preparator Comment on above: Performed By: #### m ALBC #### [facility] [address] [place], [place] [id number] Prostatic Specific Antigen, Totalon 07-29-2021 TPSA 2.330 ng/mL Normal <4.000 [facility] Preparator Comment on above: Result Comment: PSA Test Method: ECLIA/Brandi e 601 Performed By: #### P SA #### [facility] [address] [place], [place] [id number] Q - URINALYSIS,COMPLETEon Appearance (U) CLEAR Normal CLEAR [facility] Preparator Comment on above: Order Comment: [facility] Testing performed at: [facility], [address] , [address] [place] [address], [phone], Overhead Crane Inspector: Rafi Agustin MD [facility] Collection Date/Time: [facility] Results Received Date/Time: [facility] Reported Date/Time: Performed By: #### 3 4F #### [facility] Default [address] [place] [address] BACTERIA NONE SEEN Normal NONE SEEN [facility] Preparator Comment on above: Order Comment: [facility] performed at: [facility], [address], [address] [place] [address], [phone], Overhead Crane Inspector: Rafi Agustin MD [facility] Collection Date/Time: [facility] Results Received Date/Time: [facility] Reported Date/Time: Performed By: #### 3 4F #### [facility] Default [address] [place] [address] Bilirubin Ql (U) Negative Normal NEGATIVE [facility] Preparator Comment on above: Order Comment: [facility] performed at: [employer] [employer] [facility], [address] , [address] [place] [address], [address] [place] [address], Overhead Crane Inspector: Rafi Agsutin MD [facility] Collection Date/Time: [facility] Results Received Date/Time: [facility] Reported Date/Time: Performed By: #### 3 4F #### [facility] Default [address] [place] [address] Color (U) YELLOW Normal YELLOW [facility] Preparator Comment on above: Order Comment: [facility] performed at: [facility], [address] , [address] [place] [address], [address] [place] [address], Overhead Crane Inspector: Rafi Agustin MD [facility] Collection Date/Time: [facility] Results Received Date/Time: [facility] Reported Date/Time: Performed By: #### 3 4F #### [facility] Default [address] [place] [address] Glucose Ql (U) Negative Normal NEGATIVE [facility] Preparator Comment on above: Order Comment: [facility] performed at: [employer], [employer] [facility], [address] , [address] [place] [address], [address] [place] [address], Overhead Crane Inspector: Rafi Agustin MD [facility] Collection Date/Time: [facility] Results Received Date/Time: [facility] Reported Date/Time: Performed By: #### 3 4F #### [facility] Default [address] [place] [address] HYALINE CAST NONE SEEN Normal NONE SEEN [facility] Preparator Comment on above: Order Comment: [facility] performed at: [employer], [employer] [facility], [address] , [address] [place] [address], [address] [place] [address], Overhead Crane Inspector: Rafi Agustin MD [facility] Collection Date/Time: [facility] Results Received Date/Time: [facility] Reported Date/Time: Performed By: #### 3 4F #### [facility] [address] [place] [address] Ketones Ql (U) Negative Normal NEGATIVE [facility] Specialist Comment on above: Order Comment: [facility] performed at: [employer], [employer] [facility], [address] [facility], [address] [place] [address], [address] [place] [address], Overhead Crane Inspector: Rafi Agustin MD [facility] Collection Date/Time: [facility] Results Received Date/Time: [facility] Reported Date/Time: Performed By: #### 3 4F #### [facility] Default [address] [place] [address] Leukocyte esterase Test strip Ql (U) Negative Normal NEGATIVE [facility] Preparator Comment on above: Order Comment: [facility] performed at: [employer], [employer] [facility], [address] [facility], [address] [place] [address], [address] [place] [address], Overhead Crane Inspector: Rafi Agustin MD [facility] Collection Date/Time: [facility] Results Received Date/Time: [facility] Reported Date/Time: Performed By: #### 3 4F #### [facility] Default [address] [place] [address] Nitrite Ql (U) Negative Normal NEGATIVE [facility] Preparator Comment on above: Order Comment: [facility] performed at: [employer], [employer] [facility], [address] [facility], [address] [place] [address], [address] [place] [address], Overhead Crane Inspector: Rafi Agustin MD [facility] Date/Time: [facility] Results Received Date/Time: [facility] Reported Date/Time: Performed By: #### 3 4F #### [facility] Default [address] [place] [address] OCCULT BLOOD Negative Normal NEGATIVE [facility] Preparator Comment on above: Order Comment: [facility] performed at: Q, [employer], [address] [facility], [address] [place] [address], [address] [place] [address], Overhead Crane Inspector: Rafi Agustin MD [facility] Date/Time: [facility] Results Received Date/Time: [facility] Reported Date/Time: Performed By: #### 3 4F #### [facility] Default [address] [place] [address] pH (U) 6.5 [pH] Normal 5.0-8.0 [facility] Preparator Comment on above: Order Comment: [facility] performed at: QPT, [employer] [facility], [address] [facility], [address] [place] [address], [address] [place] [address], Overhead Crane Inspector: Rafi Agustin MD [facility] Collection Date/Time: [facility] Results Received Date/Time: [facility] Reported Date/Time: Performed By: #### 3 4F #### [facility] Default [address] [place] [address] Protein Ql (U) Negative Normal NEGATIVE [facility] Preparator Comment on above: Order Comment: [facility] performed at: Q, [employer], [address] [facility], [address] [place] [address], [address] [place] [address], Overhead Crane Inspector: Rafi Agustin MD [facility] Date/Time: [facility] Results Received Date/Time: [facility] Reported Date/Time: Performed By: #### 3 4F #### [facility] Default [address] [place] [address] RBC NONE SEEN Normal < OR = 2 [facility] Preparator Comment on above: Order Comment: [facility] performed at: Q, [employer] [facility], [address] [facility], [address] [place] [address], [address] [place] [address], Overhead Crane Inspector: Rafi Agustin MD [facility] Date/Time: [facility] Results Received Date/Time: [facility] Reported Date/Time: Performed By: #### 3 4F #### [facility] Default [address] [place] [address] Specific gravity (U) [Rel density] 1.012 Normal 1.001-1.035 [facility] Comment on above: Order Comment: [facility] performed at: [employer], [employer] [facility], [address] [facility], [address] [place] [address], [address] [place] [address], Overhead Crane Inspector: Rafi Agustin MD [facility] Date/Time: [facility] Results Received Date/Time: [facility] Reported Date/Time: Performed By: #### 3 4F #### [facility] [address] [place] [address] SQUAMOUS EPITHELIAL CELLS NONE SEEN Normal < OR = 5 [facility] Comment on above: Order Comment: [facility] performed at: [employer], [employer], [address] [facility], [address] [place] [address], [address] [place] [address], Overhead Crane Inspector: Rafi Agustin MD [facility] Date/Time: [facility] Results Received Date/Time: [facility] Reported Date/Time: Performed By: #### 3 4F #### [facility] Default [address] [place] [address] WBC NONE SEEN Normal < OR = 5 [facility] Comment on above: Order Comment: [facility] performed at: [employer], [employer] [facility], [address] [facility], [address] [place] [address], [address] [place] [address], Overhead Crane Inspector: Rafi Agustin MD [facility] Date/Time: [facility] Results Received Date/Time: [facility] Reported Date/Time: Performed By: #### 3 4F #### [facility] Default [address] [place] [address] No Panel Information [facility] Vital Signs Date Time Vital Sign Value Performing Clinician Facility 10-18-2023 09:25-0400 Body height 172.7 cm Rene Castro MD Work Phone: [facility] 10-18-2023 09:25-0400 Body mass index (BMI) [Ratio] 36.31 kg/m2 Rene Castro MD Work Phone: [facility] 10-18-2023 09:25-0400 Body weight 108.32 kg Rene Castro MD Work Phone: [facility] 10-18-2023 09:25-0400 Diastolic blood pressure 76 mm[Hg] Rene Castro MD Work Phone: [facility] 10-18-2023 09:25-0400 Heart rate 68 /min Rene Castro MD Work Phone: [facility] 10-18-2023 09:25-0400 Systolic blood pressure 120 mm[Hg] Rene Castro MD Work Phone: [facility] 06-30-2023 10:23-0500 Body mass index (BMI) [Ratio] 35.28 kg/m2 Hosea Sifuentes DO Work Phone: [facility] 06-30-2023 10:23-0500 Body temperature 97.81 [degF] Hosea Sifuentes DO Work Phone: [facility] 06-30-2023 10:23-0500 Body weight 105.23 kg Hosea Sifuentes DO Work Phone: [facility] 06-30-2023 10:23-0500 Diastolic blood pressure 82 mm[Hg] Hosea Sifuentes DO Work Phone: [facility] 06-30-2023 10:23-0500 Heart rate 86 /min Hosea Sifuentes DO Work Phone: [facility] 06-30-2023 10:23-0500 Respiratory rate 18 /min Hosea Sifuentes DO Work Phone: [facility] 06-30-2023 10:23-0500 SaO2% (BldA) [Mass fraction] 94 % Hosea Sifuenets DO Work Phone: [facility] 06-30-2023 10:23-0500 Systolic blood pressure 138 mm[Hg] Hosea Sifuentes DO Work Phone: [facility] 06-14-2023 14:25-0500 Body temperature 97.7 [degF] MD Sera Flower Work Phone: [facility] 06-14-2023 14:25-0500 Diastolic blood pressure 74 mm[Hg] MD Sera Flower Work Phone: [facility] 06-14-2023 14:25-0500 Heart rate 78 /min MD Sera Flower Work Phone: [facility] 06-14-2023 14:25-0500 Respiratory rate 20 /min MD Sera Flower Work Phone: [facility] 06-14-2023 14:25-0500 SaO2% (BldA) [Mass fraction] 95 % MD Sera Flower Work Phone: [facility] 06-14-2023 14:25-0500 Systolic blood pressure 155 mm[Hg] MD Sera Flower Work Phone: [facility] 06-14-2023 11:48-0500 Body height 172.72 cm MD Sera Flower Work Phone: [facility] 06-14-2023 11:48-0500 Body weight 108.9 kg MD Sera Flower Work Phone: [facility] 03-23-2023 09:34-0400 Body height 172.7 cm Rene Castro MD Work Phone: [facility] 03-23-2023 09:34-0400 Body mass index (BMI) [Ratio] 35.12 kg/m2 Rene Castro MD Work Phone: [facility] 03-23-2023 09:34-0400 Body weight 104.78 kg Rene Castro MD Work Phone: [facility] 03-23-2023 09:34-0400 Diastolic blood pressure 72 mm[Hg] Rene Castro MD Work Phone: [facility] 03-23-2023 09:34-0400 Heart rate 60 /min Rene Castro MD Work Phone: [facility] 03-23-2023 09:34-0400 Systolic blood pressure 128 mm[Hg] Rene Castro MD Work Phone: [facility] 09-07-2022 11:31-0400 Body height 172.72 cm Sera Flower Work Phone: [facility]-Uobvdvqwwq-Tygjz daniel 250 DO Work Phone: 09-07-2022 11:31-0400 Body mass index (BMI) [Ratio] 36.8 kg/m2 Sera Flower Work Phone: IG-Fodhnifcqc-Lrywj daniel 250 DO Work Phone: 09-07-2022 11:31-0400 Body surface area Derived from formula 2.22 m2 Sera Flower Work Phone: OI-Knsmrlmflr-Bfvkj daniel 250 DO Work Phone: 09-07-2022 11:31-0400 Body weight 109.77 kg Sera Flower Work Phone: WV-Urrustmqhv-Zwffq daniel 250 DO Work Phone: 09-07-2022 11:31-0400 Diastolic blood pressure 68 mm[Hg] Sera Flower Work Phone: UO-Gaahlmblzx-Wgoqz daniel 250 DO Work Phone: 09-07-2022 11:31-0400 Heart rate 76 /min Sera Flower Work Phone: LY-Jhljclzipk-Sfefc daniel 250 DO Work Phone: 09-07-2022 11:31-0400 Systolic blood pressure 124 mm[Hg] Sera Flower Work Phone: YX-Uqajoxmrrm-Pwbud daniel 250 DO Work Phone: 09-05-2021 14:04-0400 Body height 172.72 cm Sera Flower Work Phone: [facility] 250 DO Work Phone: 09-05-2021 14:04-0400 Body mass index (BMI) [Ratio] 36.49 kg/m2 Sera Flower Work Phone: [facility] 250 DO Work Phone: 09-05-2021 14:04-0400 Body surface area Derived from formula 2.21 m2 Sera Flower Work Phone: [facility] 250 DO Work Phone: 09-05-2021 14:04-0400 Body weight 108.86 kg Sera Flower Work Phone: [facility] 250 DO Work Phone: 09-05-2021 14:04-0400 Diastolic blood pressure 82 mm[Hg] Sera Flower Work Phone: [facility] 250 DO Work Phone: 09-05-2021 14:04-0400 Heart rate 70 /min Sera Flower Work Phone: [facility] 250 DO Work Phone: 09-05-2021 14:04-0400 Systolic blood pressure 132 mm[Hg] Sera Flower Work Phone: [facility] 250 DO Work Phone: Encounters Encounter Date Encounter Type Care Provider Facility Start: 2024 End: 2024 ambulatory BENJY ALAS Not Available Start: 10-18-2023 End: 10-18-2023 Office outpatient visit 25 minutes Rene Castro MD Work Phone: [facility] Comment on above: 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 (Primary Dx); Essential hypertension; Mixed hyperlipidemia; Ischemic cardiomyopathy; Status post coronary artery stent placement; Class 2 obesity with body mass index (BMI) of 35.0 to 35.9 in adult, unspecified obesity type, unspecified whether serious comorbidity present; Former smoker Start: 10-18-2023 End: 10-18-2023 ambulatory RENE Porter [facility] Ambulatory Start: 09-20-2023 End: 09-20-2023 ambulatory SERA FLOWER Not Available Start: 07-30-2023 End: 07-30-2023 ambulatory SERA FLOWER Not Available Start: 06-30-2023 End: 06-30-2023 ambulatory HOSEA SIFUENTES Not Available Start: 06-30-2023 End: 06-30-2023 Office outpatient visit 25 minutes Hosea Sifuentes DO Work Phone: [facility] Comment on above: Acute exacerbation o f chronic obstructive pulmonary disease (CMS/HCC) (Primary Dx) Start: 06-27-2023 End: 06-27-2023 ambulatory SERA FLOWER Not Available Start: 06-14-2023 End: 06-14-2023 Emergency department patient visit Jasper Martinez Facility:[facility] Start: 06-14-2023 End: 06-14-2023 Emergency department patient visit MD Sera Flower Work Phone: [facility] Work Phone: Start: 06-14-2023 End: 06-14-2023 ambulatory RENZO WEAVER Not Available Start: 05-19-2023 End: 05-19-2023 ambulatory BRITTANY FIGUEROA Not Available Start: 03-23-2023 End: 03-23-2023 Office outpatient visit 25 minutes Rene Castro MD Work Phone: [facility] Comment on above: 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; Essential hypertension; Mixed hyperlipidemia; Ischemic cardiomyopathy; Status post coronary artery stent placement; Class 2 obesity with body mass index (BMI) of 35.0 to 35.9 in adult, unspecified obesity type, unspecified whether serious comorbidity present Start: 03-23-2023 End: 03-23-2023 ambulatory [facility] Ambulatory Start: 02-06-2023 Other Sera Flower Work Phone: [facility] 250 DO Work Phone: Start: 02-05-2023 End: 02-05-2023 ambulatory [facility] Facility:[facility] Start: 02-05-2023 End: 02-05-2023 ambulatory MD Sera Flower Work Phone: [facility] Work Phone: Start: 02-05-2023 End: 02-05-2023 Patient encounter procedure MD Sera Flower Work Phone: [facility] Work Phone: Start: 02-05-[address] Sera Flower Facility:[id number] Start: 01-30-2023 AUDIT Sera Flower Work Phone: [facility] 600 DO Work Phone: Start: 01-15-2023 Other Sera Flower Work Phone: [facility] 250 DO Work Phone: Start: 01-12-2023 Chart Update Sera Flower Work Phone: [facility] 250 DO Work Phone: Start: 01-04-[address] Sera Flower Facility:[id number] Start: 01-03-[address] Sera Flower Facility:[id number] Start: 11-14-2022 End: 11-14-2022 ambulatory DEANDRA BENDER Facility:[facility] Start: 11-14-2022 End: 11-14-2022 Patient encounter procedure Deandra Bender MD Work Phone: Ophthalmology Comment on above: Clonic hemifacial sp asm, right (Primary Dx) Start: 09-07-2022 Office outpatient vi sit 25 minutes Sera Flower Work Phone: [facility]opf[facility] 250 DO Work Phone: Start: 09-07-2022 ambulatory Rene Castro Facility : Start: 08-08-2022 End: 08-08-2022 ambulatory DEANDRA BENDER Facility:[facility] Start: 08-08-2022 End: 08-08-2022 Patient encounter procedure Deandra Bender MD Work Phone: Ophthalmology Comment on above: Clonic hemifacial sp asm, right (Primary Dx) Start: 06-21-2022 Telephone encounter Deandra Bender MD Work Phone: [facility] [place] Comment on above: Orders Start: 06-21-2022 End: 06-21-2022 ambulatory DEANDRA BENDER Facility:[facility] Start: 06-21-2022 End: 06-21-2022 Patient encounter procedure Deandra Bender MD Work Phone: Ophthalmology Comment on above: Clonic hemifacial sp asm, right (Primary Dx); Paralytic strabismus; Jada's syndrome Start: 05-01-2022 End: 05-01-2022 ambulatory MAU RANDLE Facility:[facility] Start: 05-01-2022 End: 05-01-2022 Patient encounter procedure Mau Randle OD Work Phone: Ophthalmology Comment on above: Eyelid myokymia (Velma maren Dx); Dry eye syndrome of both eyes; Hyperopia of both eyes with astigmatism and presbyopia Start: 09-05-2021 Office outpatient vi sit 25 minutes Sera Flower Work Phone: [facility] 250 DO Work Phone: Procedures Date Procedure Procedure Detail Performing Clinician Start: 09-14-2023 Lipid 1996 panel - Serum or Plasma Rene Castro MD Work Phone: Start: 06-14-2023 SARS-CoV-2, Influenza & RSV (PCR) MD Sera Flower Work Phone: Start: 06-14-2023 Plain chest X-ray MD Sera Flower Work Phone: Start: 03-23-2023 Alanine aminotransferase [Enzymatic activity/volume] in Serum or Plasma WALKER CASTRO Start: 03-23-2023 Aspartate aminotransferase [Enzymatic activity/volume] in Serum or Plasma WALKER CASTRO Start: 03-23-2023 Basic metabolic 2000 panel - Serum or Plasma WALKER CASTRO Start: 03-23-2023 CBC panel - Blood by Automated count WALKER CASTRO Start: 03-23-2023 Lipid panel [facility] Start: 03-20-2023 Echocardiography [facility] Start: 03-20-2023 Echocardiography Generic Provider Scanning Start: 02-13-2023 History of placement of stent for coronary artery disease Status post coronary artery stent placement Rene Castro MD Work Phone: Start: 11-14-2022 [facility] innervated facial nrv unil Deandra Bender MD Work Phone: Start: 08-08-2022 [facility] 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 Start: 09-13-2028 Lipid panel Lipid Panel [facility] Start: 08-11-2027 DTaP/Tdap/Td Vaccines (2 - Td or Tdap) DTaP/Tdap/Td Vaccines (2 - Td or Tdap) [facility] Start: 05-15-2024 End: 05-15-2024 Patient encounter procedure 05/15/2024 9:10 AM EST Office Visit [facility] [address] [facility] [address] [place] [address] Rene Castro MD [address] [facility] [address] [place] [address] [facility] Start: 03-20-2024 Echocardiography Echocardiogram [facility] Start: 01-27-2024 Influenza vaccination Influenza Vaccine (Season Ended) [facility] Start: 10-18-2023 End: 10-18-2023 Patient encounter procedure 10/18/2023 9:30 AM EDT Office Visit [place] [id number] [facility] [address] [place] [address] Rene Castro MD [address] [facility] [address] [place] [address] [facility] Start: 09-20-2023 End: 09-20-2023 Patient encounter procedure 09/20/2023 1:00 PM EDT Office Visit [facility] [address] [place] [id number] Sera Flower MD [address] [place] [address] [facility] Start: 03-23-2023 End: 03-23-2024 Alanine aminotransferase [Enzymatic activity/volume] in Serum or Plasma by With P-5'-P Alanine Aminotransferase Lab Routine 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 Essential hypertension Mixed hyperlipidemia Ischemic cardiomyopathy Status post coronary artery stent placement Class 2 obesity with body mass index (BMI) of 35.0 to 35.9 in adult, unspecified obesity type, unspecified whether serious comorbidity present Expected: 03/23/2023 (Approximate), Expires: 03/23/2024 [facility] Work Phone: Comment on above: Expected: 03/23/2023 (Approximate), Expi res: 03/23/2024 Start: 03-23-2023 End: 03-23-2024 Aspartate aminotransferase [Enzymatic activity/volume] in Serum or Plasma by With P-5'-P Aspartate Aminotransferase Lab Routine 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 Essential hypertension Mixed hyperlipidemia Ischemic cardiomyopathy Status post coronary artery stent placement Class 2 obesity with body mass index (BMI) of 35.0 to 35.9 in adult, unspecified obesity type, unspecified whether serious comorbidity present Expected: 03/23/2023 (Approximate), Expires: 03/23/2024 [facility] Work Phone: Comment on above: Expected: 03/23/2023 (Approximate), Expi res: 03/23/2024 Start: 03-23-2023 End: 03-23-2024 Basic metabolic 2000 panel - Serum or Plasma Basic Metabolic Panel Lab Routine 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 Essential hypertension Mixed hyperlipidemia Ischemic cardiomyopathy Status post coronary artery stent placement Class 2 obesity with body mass index (BMI) of 35.0 to 35.9 in adult, unspecified obesity type, unspecified whether serious comorbidity present Expected: 03/23/2023 (Approximate), Expires: 03/23/2024 [facility] Work Phone: Comment on above: Expected: 03/23/2023 (Approximate), Expi res: 03/23/2024 Start: 03-23-2023 End: 03-23-2024 CBC panel - Blood by Automated count CBC Lab Routine 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 Essential hypertension Mixed hyperlipidemia Ischemic cardiomyopathy Status post coronary artery stent placement Class 2 obesity with body mass index (BMI) of 35.0 to 35.9 in adult, unspecified obesity type, unspecified whether serious comorbidity present Expected: 03/23/2023 (Approximate), Expires: 03/23/2024 [facility] Service Area Work Phone: Comment on above: Expected: 03/23/2023 (Approximate), Expi res: 03/23/2024 Start: 03-23-2023 End: 03-23-2024 Lipid 1996 panel - Serum or Plasma Lipid Panel Lab Routine 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 Essential hypertension Mixed hyperlipidemia Ischemic cardiomyopathy Status post coronary artery stent placement Class 2 obesity with body mass index (BMI) of 35.0 to 35.9 in adult, unspecified obesity type, unspecified whether serious comorbidity present Expected: 03/23/2023 (Approximate), Expires: 03/23/2024 [facility] Work Phone: Comment on above: Expected: 03/23/2023 (Approximate), Expi res: 03/23/2024 Start: 03-15-2023 FUV, Provider: Rene Castro, Status: Pen, Time: 9:20 AM FUV, Provider: Rene Castro, Status: Pen, Time: 9:20 AM [facility] 250 DO Work Phone: Start: 01-26-2023 COVID-19 Vaccine ( season) COVID-19 Vaccine ( season) [facility] Start: 01-26-2023 Influenza vaccination [facility] Start: 09-07-2022 FUV, Provider: Rene Castro, Status: Pen, Time: 8:30 AM FUV, Provider: Rene Castro, Status: Pen, Time: 8:30 AM [facility] 250 DO Work Phone: Start: 05-28-2022 ADVANCE [...] aneurysm screening Abdominal Aortic Aneurysm (AAA) Screening [facility] Start: 2018 PNEUMOCOCCAL: 65+ (1 - PCV) PNEUMOCOCCAL: 65+ (1 - PCV) [facility] Start: 02-15-2017 Zoster Vaccines (2 of 3) Zoster Vaccines (2 of 3) [facility] Start: 2013 RSV patients and/or patients aged 60+ years (1 - 1-dose 60+ series) RSV patients and/or patients aged 60+ years (1 - 1-dose 60+ series) [facility] Start: 2003 SHINGRIX VACCINE (1 of 2) SHINGRIX VACCINE (1 of 2) [facility] Start: 1998 COLOGUARD (FIT-DNA) COLOGUARD (FIT-DNA) [...] Start: 1971 Diabetes mellitus screening Diabetes Screening [facility] Start: 1971 HEPATITIS C SCREENING HEPATITIS C SCREENING [facility] Start: 1971 Hepatitis C screening Hepatitis C Screening [facility] Start: 1953 COVID-19 VACCINE (#1) COVID-19 VACCINE (#1) [facility] Start: 1953 Creatinine measurement Creatinine Level [facility] Start: 1953 Lipid panel Lipid Panel [facility] Start: 1953 Medicare Annual Wellness Visit Medicare Annual Wellness Visit (AWV) [facility] Start: 1953 Potassium measurement Potassium Level [facility] Start: 1953 Screening for malignant neoplasm of colon [facility] End: 07-21-2023 Mri brain brain stem w/o w/contrast material MRI BRAIN WO/W IVCON Radiology Routine Paralytic strabismus 1 Occurrences starting 06/21/2022 until 07/21/2023 [facility] Work Phone: Comment on above: 1 Occurrences starting 06/21/2022 until 07/21/2023 End: 07-21-2023 Mri orbit face & neck w/o & w/contrast matrl MRI SOFT TISSUE NECK WO/W IVCON Radiology Routine 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 until 07/21/2023 [facility] Work Phone: Comment on above: 1 Occurrences starting 06/21/2022 until 07/21/2023 Patient Education COPD Exacerbat ion, Adult ED [facility] Work Phone: Patient referral [facility] Work Phone: [facility] Immunizations Immunization Date Immunization Notes Care Provider Fa cili 04-16-2019 Seasonal trivalent influenza vaccine, adjuvanted, preservative free Sera Flower Work Phone: [place] [address] DO Work Phone: 04-16-2019 influenza virus vacc ine, unspecified formulation Rene Castro MD Work Phone: [facility] Work Phone: 03-28-2019 influenza virus vacc ine, unspecified formulation Sera Flower Work Phone: [place] [address] DO Work Phone: 08-16-2018 influenza, seasonal, injectable, preservative free Sera Flower Work Phone: [place] [address] DO Work Phone: 08-16-2018 pneumococcal conjuga te vaccine, 13 valent Sera Flower Work Phone: [facility] [employer] DO Work Phone: 05-28-2018 pneumococcal polysaccharide vaccine, 23 valent Sera Flower Work Phone: [place] [address] DO Work Phone: 08-10-2017 tetanus toxoid, redu daniel diphtheria toxoid, and acellular pertussis vaccine, adsorbed Sera Flower Work Phone: [place] [address] DO Work Phone: 12-21-2016 zoster vaccine, live Sera Flower Work Phone: [place] [address] DO Work Phone: 09-30-2012 pneumococcal polysaccharide vaccine, 23 valent Sera Flower Work Phone: [place] [address] DO Work Phone: 09-30-2012 pneumococcal vaccine , unspecified formulation Hosea Sifuentes DO Work Phone: [facility] 05-28-2010 influenza virus vacc ine, unspecified formulation Rene Castro MD Work Phone: [facility] Work Phone: 03-28-2010 influenza, seasonal, injectable, preservative free Rene Castro MD Work Phone: [facility] Work Phone: 2007 TD(adult) unspecifie d formulation Hosea Sifuentes DO Work Phone: [facility] influenza virus vacc ine, unspecified formulation Sera Flower Work Phone: [place] [address] DO Work Phone: Comment on above: Mar 20102010 Payers Date Payer Category Payer Private Health Insurance HUMANA HUMANA HMO/POS [id number] 2023-Present [address] [address] [place] [address] [id number] 2023 Self-pay [id number] 2022 Department of [facility] e ( and others) [id number] 2022 [employer] ( and others) [id number] 2022 Medicare [id number] 2021 [employer] ( and others) [id number] 2021 Unknown 2017 Medicare [id number] 2017 Medicare [id number] 1955 Unknown [id number] [id number]. 356 1953 Unknown [id number] 2.16.840.1.037155.3.579.2. 356 1953 Unknown [id number] 2.16.840.1.775216.3.579.2. 1068 1953 Unknown [id number] 2.16.840.1.822350.3.579.2. 1068 1953 Unknown [id number] 2.16.840.1.067416.3.579.2. 1259 1953 Unknown [id number] 2.16.840.1.828440.3.579.2. 1259 1953 Unknown [id number] 2.16.840.1.464428.3.579.2. 1259 1953 Unknown [id number] 2.16.840.1.461340.3.579.2. 1259 1953 Unknown [id number] 2.16.840.1.846130.3.579.2. 1259 1953 Unknown [id number] 2.16.840.1.873779.3.579.2. 1259 1953 Unknown [id number] 2.16.840.1.871169.3.579.2. 1259 1953 Unknown [id number] 2.16.840.1.016865.3.579.2. 1244 1953 Unknown [id number] 2.16.840.1.562923.3.579.2. 1244 [employer] ( and others) [id number] Unknown [id number] [id number]. 531 Unknown [id number] 2.16.840.1.915929.3.579.2. 531 Social History Date Type Detail Facility Start: 03-23-2023 End: 10-18-2023 No alcohol use No alcohol use [facility] 250 DO Work Phone: Comment on above: 5 CUPS OF COFFEE ANICETO LY; QUIT IN 1984; Start: 05-01-2022 End: 06-14-2023 Tobacco smoking status [facility] Never smoked tobacco [facility] Start: 05-01-2022 End: 10-18-2023 Tobacco use and exposure Smokeless tobacco non-user [facility] Start: 05-01-2022 End: 11-14-2022 Alcohol intake Ex-drinker (finding) [facility] Start: 1955 Sex Assigned At Not on file C [facility] Start: 10-15-2020 End: 10-18-2023 Tobacco smoking status [facility] Ex-smoker (finding) [facility] Start: 1955 Sex Assigned At Male F [facility] End: 05-28-1992 History of tobacco use Current smoker [facility] Work Phone: End: 05-28-1992 History of tobacco use Cigarette Smoker [facility] Work Phone: Start: 03-23-2023 End: 10-18-2023 Alcohol intake Lifetime non-drinker (finding) [facility] Work Phone: Start: 03-23-2023 End: 10-18-2023 Tobacco use panel [facility] Work Phone: Start: 03-13-2023 End: 10-18-2023 Exposure to SARS-CoV-2 (event) Not sure [facility] Start: 03-14-2023 Alcohol Comment caffeine: coff ee 5-[address] [facility] Start: 11-13-2022 Gender identity Identifies as male gender (finding) [facility] Clinical Notes 05-01-2022 to 10-18-2023 Rene Castro MD - 10/18/2023 9:30 AM EDTPatient InstructionsHosea Sifuentes DO - 06/30/2023 10:05 AM Cassandra [...] [facility]. [facility] and reviewed with him. LDL [...] emphasis on low-calorie diet Rene Castro MD, [facility] Review of Systems All other systems reviewed [...] , Rfl: omega-3 fatty acids-fish oil (One-Per-Day [place]-3) 684-1,200 mg capsule, Take as directed, Disp: [...] 3 Assessment/Plan 1. 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 Follow Up In [...] Scribe Attestation By signing my name below, Ana Munoz LPN, Scribe attest that this documentation has [...] discussion and plan. documented in this encounter [facility] Work Phone: 10-18-2023 Instructions Ana Cunningham [...] up 6 months documented in this encounter [facility] Work Phone: 06-30-2023 History of Presen [...] x 3 days documented in this encounter [facility] 03-23-2023 History of Presen t illness [...] emphasis on low-calorie diet Rene Castro MD, [facility] Review of Systems All other systems reviewed [...] , Rfl: omega-3 fatty acids-fish oil (One-Per-Day [place]-3) 684-1,200 mg capsule, Take as directed, Disp: [...] Rfl: Assessment/Plan 1. 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 Follow Up In [...] Aminotransferase Alanine Aminotransferase documented in this encounter [facility] Work Phone: 03-23-2023 Instructions Millie Hoffmann [...] of your visit. documented in this encounter [facility] Work Phone: 11-14-2022 Note HNO ID: [id number] Author: Deandra Bender MD Service: ? Author [...] or facial palsy H/o Botox injections in [place]-->didn't help No h/o trauma H/o sinus surgery [...] can I get the FL-41 filter? Any [facility] location, (with an optical shop), throughout [place], Email: [email or web address] [employer] in [place], [place], [employer] [facility] in [place], [place], [facility] in [place], [place], [employer] [facility] in [place], [place], [email or web address] F/u Botulinum toxin 3 months, Botulinum toxin [...] others. I have seen and examined Demarcus Garcia Kvng. I have discussed the case and the [...] Bender MD, November 14, 2022 10:00 AM. [facility] 11-14-2022 History of Presen t illness Narrative Here for botox Right eye just started twitching Tears as needed. -rofPatient still having twitching right eye and occasionally the left. Refresh tears four times a day. -rof A/P: Right hemifacial spasm x 2 years Patient doesn't remember h/o bells or facial palsy H/o Botox injections in [place]-->didn't help No h/o trauma H/o sinus surgery [...] can I get the FL-41 filter? Any [facility] location, (with an optical shop), throughout [place], Email: [email or web address] [employer] in [place], [place], [employer] [facility] in [place], [place], [facility] in [place], [place], [employer] in [place], [place], [phone] [email or web address] F/u Botulinum toxin 3 months, Botulinum toxin [...] [facility] 08-08-2022 Note HNO ID: [id number] Author: Deandra Bender MD Service: ? Author [...] Bender MD, August 08, 2022 3:05 PM. [facility] 08-08-2022 History of Presen t illness Narrative Patient still having twitching right eye and occasionally the left. Refresh tears four times a day. -rof A/P: Right hemifacial spasm x 2 years Patient doesn't remember h/o bells or facial palsy H/o Botox injections in [place]-->didn't help No h/o trauma H/o sinus surgery [...] Notes and MRI orders faxed to [facility]. Electronically signed by Orquidea Davis [facility] [place] 06/21/2022 2:03 PM EST [facility] called today. : 1955 Allergies: Codeine, Codeine-Guaifenesin, and Guaifenesin (home) [phone] (cell) Reason for call: Sasha F:[phone] Asking for the MRI orders and office notes to be faxed over to [facility]. Patient will be having them done there. Patient last appointment: Visit date not found The patients preferred pharmacy has been captured for this encounter? not asked Delores Mccollum documented in this encounter [facility] 06-21-2022 Note HNO ID: [id number] Author: Deandra Bender MD Service: ? Author Type: Physician Type: Progress Notes Filed: 06/21/2022 9:08 AM Note Text: Twitching right eye x two years. Both upper and lower lid. Trouble reading because of it. +tearing and burning. Refresh four times a day. -rof A/P: Right hemifacial spasm x 2 years Patient doesn't remember h/o bells or facial palsy H/o Botox injections in [place]-->didn't help No h/o trauma H/o sinus surgery [...] Bender MD, June 21, 2022 9:05 AM. [facility] 06-21-2022 Instructions Deandra Bender MD - [...] or facial palsy H/o Botox injections in [place]-->didn't help No h/o trauma H/o sinus surgery [...] [facility] 05-01-2022 Note HNO ID: [id number] Author: Mau Randle OD Service: ? Author Type: GOAT HERDER Type: Progress Notes Filed: 05/01/2022 9:22 AM [...] of its relevant components. Mau Randle, OD [facility] 05-01-2022 History of Presen t illness [...] others. I have seen and examined Demarcus Garcia Kvng. I have discussed the case and the management of this patient's care with the Resident/Fellow, if applicable. I also have reviewed and agree with the assessment and plan as stated above and agree with all of its relevant components. 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 [facility] Diagnosis Clonic hemifacial spasm, right- Primary [facility]* Diagnosis Clonic hemifacial spasm, right- Primary [facility] information available[facility] note* Diagnosis 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 Essential hypertension Unspecified essential hypertension Mixed hyperlipidemia Ischemic cardiomyopathy Other specified forms of chronic ischemic heart disease Status post coronary artery stent placement Postsurgical percutaneous transluminal coronary angioplasty status Class 2 obesity with body mass index (BMI) of 35.0 to 35.9 in adult, unspecified obesity type, unspecified whether serious comorbidity present documented in this encounter [facility] Work Phone: Evaluation note* Diagnosis Acute exacerbation of chronic obstructive pulmonary disease (CMS/HCC)- Primary Obstructive chronic bronchitis with exacerbation [facility] Diagnosis 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- Primary Essential hypertension [...] hazards to health documented in this encounter [facility] Work Phone: Hospital Discharge instructions Additional Instructions If your symptoms return/worsen or you develop any further concerns or symptoms please see your doctor or return to the emergency department immediately.[facility] Work Phone: Reason for referral (narrative)* Consultation (Routine) - Authorized Specialty Diagnoses / Procedures Referred By Contac t Referred To Contact Cardiology Diagnoses 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 Essential hypertension Mixed hyperlipidemia Ischemic cardiomyopathy Status post coronary artery stent placement Class 2 obesity with body mass index (BMI) of 35.0 to 35.9 in adult, unspecified obesity type, unspecified whether serious comorbidity present Procedures Follow Up In Cardiology Rene Castro MD [facility] [address] [place] [address] Rene Castro MD [address] [place] [address] [address] [place] [id number] Referral ID Status Reason Start Date Expiration Date V isits Requested Visits Authorized [id number] Authorized 03/23/2023 03/22/2024 1 1 [facility] Work Phone: Repgxp for referral (narrative)* Consultation (Routine) - Authorized Specialty Diagnoses / Procedures Referred By Contac t Referred To Contact Cardiology Diagnoses 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 Procedures Follow Up In Cardiology Rene Castro MD [address] [place] [address] Rene Castro MD [address] [place] [address] Referral ID Status Reason Start Date Expiration Date V isits Requested Visits Authorized [id number] Authorized 10/18/2023 10/17/2024 1 1 [facility] Work Phone: Chief Complaint * DEMARCUS [...] infarction with no ischemia. EF in the [id number]. He remains compensated as for ischemic cardiomyopathy. [...] on low-calorie diet * Rene Castro MD, [facility] Family History No Family History Records FoundUnknown [...] Referral Specialty Diagnoses / Procedures Referred By Contac t Referred To Contact MR IMAGING Diagnoses Jada's syndrome Procedures MRI SOFT TISSUE NECK WO/W IVCON MRI ORBIT FACE & NECK W/O & W/CONTRAST Daendra Troncoso MD [address] [place] [address] Mr Imaging Referral ID Status Reason Start Date Expiration Date Visits Requested Visits Authorized [id number] Pending Review Auto-Generat ed Referral 06/21/2022 07/21/2023 1 1 Specialty Diagnoses / Procedures Referred By Contac t Referred To Contact MR IMAGING Diagnoses Paralytic strabismus Procedures MRI BRAIN WO/W IVCON MRI BRAIN BRAIN STEM W/O W/CONTRAST MATERIAL Deandra Bender MD [address] [place] [address] Mr Imaging Referral ID Status Reason Start Date Expiration Date Visits Requested Visits Authorized [id number] Pending Review Auto-Generat ed Referral 06/21/2022 07/21/2023 [...] , up to 100 units Procedures BOTOX [id number] [place] [address] [place] [address] Deandra Bender MD [address] [place] [address] Referral ID Status Reason Start Date Expiration Date V isits Requested Visits Authorized [id number] Authorized 11/14/2022 05/27/2023 99 99 Reason Comments Follow-up 6 months Reason Comments Follow-up 6m Specialty Diagnoses / Procedures Referred By Contac t Referred To Contact Cardiology Diagnoses 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 Essential hypertension Mixed hyperlipidemia Ischemic cardiomyopathy Status post coronary artery stent placement Class 2 obesity with body mass index (BMI) of 35.0 to 35.9 in adult, unspecified obesity type, unspecified whether serious comorbidity present Procedures Follow Up In Cardiology Rene Castro MD [address] [place] [address] 2, [address] [address] Rene Castro MD [address] [place] [address] 2, [address] [address] Referral ID Status Reason Start Date Expiration Date V isits Requested Visits Authorized [id number] Authorized 03/23/2023 03/22/2024 1 1 (unrecognized sect ion and content) No Status Records FoundNo Status Records FoundNo Status Records FoundNo Status Records FoundNo Status Records FoundNo Status Records FoundNo Status Records FoundNo Status Records Found INFORMATION SOURCE (unrecogn ized section and content) DATE CREATED AUTHOR 07/16/2022 [facility] dical Specialist DATE CREATED AUTHOR AUTHOR'S ORGANIZ ATION 09/09/2022 [employer] DATE CREATED AUTHOR AUTHOR'S ORGANIZ ATION 11/14/2022 [facility] DATE CREATED AUTHOR AUTHOR'S ORGANIZ ATION 02/12/2023 [facility] ical Center DATE CREATED AUTHOR AUTHOR'S ORGANIZ ATION 02/28/2023 [facility] DATE CREATED AUTHOR AUTHOR'S ORGANIZ ATION 06/25/2023 [facility] DATE CREATED AUTHOR AUTHOR'S ORGANIZ ATION 01/03/2024 [facility] dical Specialists EPIC DATE CREATED AUTHOR AUTHOR'S ORGANIZ ATION 01/04/2024 [facility] Director Of Exhibit Development Teams (unrecognized sec tion and content) Team Status: Active Member Role Status Dates Sera Flower MD Primary Care Provider Active Team Status: Inactive Member Role Status Dates Sera Flower MD Primary Care Provider, Other Provider Active Rene Castro MD Attending Provider Active Waist Presser Relationship Specialty Start Date End Date Sera Flower MD [address] [place] [address] PCP - General 02/16/21 Team Status: Inactive Member Role Status Dates Sera Flower MD Primary Care Provider Active St art: June 14, 2023 End: June 14, 2023 Jasper Martinez DO Emergency Provider Active Start: June 14, 2023 End: June 14, 2023 Waist Presser Relationship Specialty Start Date End Date Sera Flower MD [address] [place] [address] PCP - [employer] 1/1/23 Sera Flower MD [address] [place] [address] PCP - General Internal Medicine 10/03/22 Waist Presser Relationship Specialty Start Date End Date Sera Flower MD [address] [place] [id number] PCP - General 02/16/21 Goals (unrecognized section [...] BE BASED ON THE PRIMARY CLINICAL RECORDS. [facility] [employer] [facility]. provides no warranty or guarantee of the accuracy or completeness of information in this document.
--- NOTE | 2024-01-17 07:50 | CT_ITS ---
[address] [address] Patient Name: DEMARCUS CALDERON MRN: [id number] date: 1955 Sex: M Assigned Patient Location: CT Current Patient Location: Accession/Order Number: [id number] Exam Date: 01/17/2024 07:55 Report Date: 01/18/2024 05:57 At the request of: CHALINO PHOENIX Procedure: CT chest high res EXAMINATION: CT chest high res HISTORY: Pulmonary Fibrosis COMPARISON: CT chest 12/24/2023 TECHNIQUE: Axial images were obtained at 10 mm intervals during inspiration and expiration in the supine and prone positions. No IV contrast given. Dose reduction techniques were achieved by using automated exposure control and/or adjustment of mA and/or kV according to patient size and/or use of iterative reconstruction technique. FINDINGS: LUNGS: Scattered areas of mild peripheral fibrosis. Minimal bronchiectasis. No significant emphysematous changes. Scattered areas of mild coarsening of interstitial markings. PLEURA: No mass, effusion, or pneumothorax. GIOVANNA: No mass or adenopathy. MEDIASTINUM: No mass or adenopathy. HEART: No significant enlargement or pericardial effusion.. Coronary arteries: AORTA: No aneurysm.. CHEST WALL: No mass or axillary adenopathy LIMITED ABDOMEN: No suspicious findings. Limited images of the upper abdomen. OTHER: Negative. CT/CT chest high res IMPRESSION: 1. No appreciable acute infiltrates. 2. Scattered areas of mild peripheral fibrosis and minimal chronic interstitial changes. Electronically authenticated by: TXE HARTMANN Date: 01/18/2024 05:57
--- NOTE | 2024-01-17 09:00 | RT_ITS ---
[facility] Test Date: 2024-01-17 Pat Name: DEMARCUS CALDERON Department: Room: - Gender: Male Drum Builder: Dennis Francisco RRT : 1955 Requested By: Evens Morgan Order Number: [id number] Reading MD: Evens Morgan Interpretive Statements Pulmonary function testing was completed according to ATS criteria. Findings were considered accurate and reproducible. Both pre- and post-bronchodilator values utilized for spirometry. Spirometry (based on pre-bronchodilator values): -FEV1/FVC: Normal @ 83 -FEV1: Mildly reduced @ 70% -FVC: Moderately reduced @ 62% -There is a positive bronchodilator response in FEV1 and FVC. Lung volumes by plethysmography (based on pre-bronchodilator values): -RV: Normal @ 104% -TLC: Normal @ 85% -Airway resistance: Increased -Airway conductance: Decreased Diffusion capacity: -DLCO: Moderate reduction @ 54% when corrected for Hb 15.1g/dL Flow-volume loop: -Mixed restrictive pattern with obstructive features Impressions: -Spirometry shows a moderate restrictive pattern, though TLC is normal - this can be seen in obesity (BMI 37.3). There are obstructive features present that appear to be obscured by the restriction, including a positive bronchodilator response, increased airway resistance and decreased conductance. There is a moderate diffusion impairment which may be associated with the stated history of pulmonary fibrosis. Clinical correlation required. Electronically Signed On 01-18-2024 8:07:55 EDT by Evens Morgan
[2024-01-17] MEDS: ALBUTEROL SULFATE 2.5 MG/3 ML VIAL NEB IH (09:02)
== END 2024-01-17 07:46 | disposition home or self-care (01) ==
LOC: CT 07:45
PROVIDERS: PCP Internal Medicine; Visit Provider Internal Medicine
DX: J84.10 Pulmonary fibrosis, unspecified (principal); J45.40 Moderate persistent asthma, uncomplicated
CPT/HCPCS: 71250; 94060; 94726; 94729

== ENCOUNTER 2024-02-02 10:16 | Emergency (ER) | payer MEDICARE, OTHER, SELFPAY ==
--- OUTSIDE RECORDS SUMMARY | 2024-02-02 10:26 | XMS_ITS | CCD ---
Author Organization [facility] Care Team Providers Care Principal Architect Name Role Phone Sera Flower Unavailable Unavailable Unavailable Unavailable Primary Care Provider Unavailabl e Unavailable Unavailable DEANDRA BENDER Attending Unavailable DEANDRA BENDER Referring Unavailable MAU RANDLE Attending Unavailable DEANDRA BENDER Attending Unavailable DEANDRA BENDER Attending Unavailable DEANDRA BENDER Referring Unavailable MD Sera Flower Primary Care Provider MD Sera Flower Other Provider MD Rene Castro Attending Provider [phone] Dr. Sera Flower Primary Care Unavailab Rene Nobles Referring Unavailable Anjel, Dr. Sera Frost Primary Care Unavailab Rene Nobles Attending Unavailable Dr. Sera Flower Primary Care Unavailab Rene Nobles Attending Unavailable Anjel, Dr. Sera Frost Primary Care Unavailab Rene Nobles Attending Unavailable Sera Flower MD Primary Care Provider [phone] MD Sera Flower Primary Care Provider DO Jasper Martinez Emergency Provider Jasper Martinez Admitting Unavailable Jasper Martinez Attending Unavailable Sera Flower Primary Care Unavailable Rene Castro Attending Unavailable Sera Flower Primary Care Unavailable Sera Flower Consulting Rene Sauer Admitting Unavailable Sera Flower MD Unavailable Sera Floewr MD Primary Care Provider [phone] RENZO WEAVER Attending Unavailable SERA FLOWER Referring [...] 6 Vomiting, Unknown, Nausea And Vomiting, Other [facility] (6 sources) Codeine / guaiFENesin; Translations: [CODEINE-GUAIFEN ESIN] Drug Allergy 1 Other: See Comments [facility] (6 sources) guaiFENesin; Translations: [GUAIFENESIN] Drug Allergy 3 Other: See Comments [facility] (1 source) Codeine Drug Allergy 4 [facility] Repository (2 sources) guaiFENesin Drug Allergy 3 Other [facility] Medications Current Medications Medication Drug Class(es) Dates Sig (Normalized) Sig (Original) albuterol 0.83 mg/ml inhalation solution (14 sources) beta2-Adrenergic Agonist Start: 06-21-2023 albuterol (2.5 MG/3ML) 0.083% nebulizer solution Indications: Chronic obstructive pulmonary disease, unspecified COPD type ([facility]) Take 3 mL (2.5 mg) by nebulization [...] 12:00am Start: 01-17-2022 take 1 capsule by [facility] three times daily for cough benzonatate (TESSALON PERLE) 100 mg capsule take 1 capsule by mouth three times a day if needed for cough SWALLOW WHOLE 0 01/17/2022 Active Comment on above: take 1 capsule by [facility] three times a day if needed [...] t ongue. 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 Quantity: 0 [...] [Coronary atherosclerosis of unspecified type of vessel, eastern shoshone or graft] Onset: 01-03-2023 03-23-2023 Chronic Disorders [...] aPTT Coag (PPP) [Time] 30.2 s 25.1-36.5 [facility] Comment on above: A hematocrit value g reater than 55% may lead to inaccurate results in coagulation testing. Patients having hematocrit values >55% require a special collection tube for coagulation studies. Please contact the laboratory at [phone] for redraw instructions. Alanine aminotransferase [En zymatic activity/volume] in Serum or PlasmaOrdered By: Jasper Martinez on 06-14-2023 ALT [Catalytic activity/Vol] 37 U/L 7-52 [facility] Albumin [Mass/volume] in Ser um or Plasma by Bromocresol green (BCG) dye binding methoOrdered By: Jasper Martinez on 06-14-2023 Albumin BCG dye [Mass/Vol] 4.1 g/dL 3.5-5.7 [facility] Alkaline phosphatase [Enzyma tic activity/volume] in Serum or PlasmaOrdered By: Jasper Martinez on 06-14-2023 ALP [Catalytic activity/Vol] 59 U/L 34-104 [facility] Aspartate aminotransferase [ Enzymatic activity/volume] in Serum or PlasmaOrdered By: Jasper Martinez on 06-14-2023 AST [Catalytic activity/Vol] 29 U/L 13-39 [facility] B-Type Natriuretic Peptideon 06-14-2023 Natriuretic peptide B (Bld) [Mass/Vol] 67.0 pg/mL Normal 5-100 [facility] Comment on above: Result Comment: PERF ORMED BY: [place] [address] PATHOLOGIST PREPRESS TECHNICIAN RAPHAEL RANGEL M.D. Performed By: #### C OVID19 FLU RSV, CEPHEID NEG #### [address] Basophils Auto (Bld) [#/Vol] Ordered By: Jasepr Martinez on 06-14-2023 Basophils (Bld) [#/Vol] 0.0 10*3/uL 0.0-0.2 [facility] Basophils/100 WBC Auto (Bld) Ordered By: Jasper Martinez on 06-14-2023 Basophils/100 WBC (Bld) 0.6 % . [facility] Bilirubin.total [Mass/volume ] in Serum or PlasmaOrdered By: Jasper Martinez on 06-14-2023 Bilirubin [Mass/Vol] 0.4 mg/dL 0.3-1.0 [facility] COVID CepheidOrdered By: Asya Martinez on 06-14-2023 SARS-CoV-2 (COVID-19) Ab IA Ql Negative Negative [facility] Comment on above: This is a duplicate Cepheid Xpert Xpress CoV-2/Flu/RSV Plus RNA by RT-PCR result to be used for statistical tracking purpose only. SARS-CoV-2 (COVID-19) RNA VERONA+probe Ql (Unsp spec) [facility] COVID-19 / Flu A/B / RSV [...] or Cepheid Disclaimer revoked sooner. PERFORMED BY: [place] [address] PATHOLOGIST PREPRESS TECHNICIAN RAPHAEL RANGEL M.D. Normal [facility] Comment on above: Performed By: #### C OVID19 FLU RSV, CEPHEID NEG #### [place] [id number] [facility] Calcium [Mass/volume] in Ser um or PlasmaOrdered By: Jasper Martinez on 06-14-2023 Calcium [Mass/Vol] 9.0 mg/dL 8.6-10.3 [facility] Carbon dioxide, total [Moles /volume] in Serum or PlasmaOrdered By: Jasper Martinez on 06-14-2023 CO2 [Moles/Vol] 23.4 mmol/L 21.0-31.0 [facility] Cepheid COVID PCR Negativeon 06-14-2023 SARS-CoV-2 (COVID-19) RNA VERONA+probe Ql (Unsp spec) Negative Normal Negative [facility] Comment on above: Result Comment: This is a duplicate Cepheid Xpert Xpress CoV-2/Flu/RSV Plus RNA by RT-PCR result to be used for statistical tracking purpose only. PERFORMED BY: [address] [address] PATHOLOGIST PREPRESS TECHNICIAN RAPHAEL RANGEL M.D. Performed By: #### C OVID19 FLU RSV, CEPHEID NEG #### [facility] [address] Chloride [Moles/volume] in S taylor or PlasmaOrdered By: Jasper Martinez on 06-14-2023 Chloride [Moles/Vol] 105 mmol/L 98-107 [facility] Complete Blood Count Auto Di ffon 06-14-2023 Basophils (Bld) [#/Vol] 0.0 10*3/uL Normal 0.0-0.2 [facility] Comment on above: Result Comment: PERF ORMED BY: [place] [address] PATHOLOGIST PREPRESS TECHNICIAN RAPHAEL RANGEL M.D. Performed By: #### B CART DRIVER, CK, MG, CBC, HS TROP, PTT, PT, CMP #### [address] Basophils/100 WBC (Bld) 0.6 % Normal . [facility] Comment on above: Performed By: #### B CART DRIVER, CK, MG, CBC, HS TROP, PTT, PT, CMP #### [address] Eosinophils (Bld) [#/Vol] 0.8 10*3/uL High 0.0-0.45 [facility] Comment on above: Performed By: #### B CART DRIVER, CK, MG, CBC, HS TROP, PTT, PT, CMP #### [address] Eosinophils/100 WBC (Bld) 9.6 % Normal . [facility] Comment on above: Performed By: #### B CART DRIVER, CK, MG, CBC, HS TROP, PTT, PT, CMP #### [address] Erythrocyte distribution width (RBC) [Ratio] 14.4 % Normal 12.0-14.8 [facility] Comment on above: Performed By: #### B CART DRIVER, CK, MG, CBC, HS TROP, PTT, PT, CMP #### [address] Hematocrit (Bld) [Volume fraction] 40.8 % Normal 38.8-50.0 [facility] Comment on above: Performed By: #### B CART DRIVER, CK, MG, CBC, HS TROP, PTT, PT, CMP #### [address] Hemoglobin (Bld) [Mass/Vol] 14.3 g/dL Normal 13.0-17.0 [facility] Comment on above: Performed By: #### B CART DRIVER, CK, MG, CBC, HS TROP, PTT, PT, CMP #### [address] Lymphocytes (Bld) [#/Vol] 1.5 10*3/uL Normal 1.00-4.8 [facility] Comment on above: Performed By: #### B CART DRIVER, CK, MG, CBC, HS TROP, PTT, PT, CMP #### [address] Lymphocytes/100 WBC (Bld) 18.5 % Normal . [facility] Comment on above: Performed By: #### B CART DRIVER, CK, MG, CBC, HS TROP, PTT, PT, CMP #### [address] MCH (RBC) [Entitic mass] 30.1 pg Normal 27.5-35.2 [facility] Comment on above: Performed By: #### B CART DRIVER, CK, MG, CBC, HS TROP, PTT, PT, CMP #### [address] MCV (RBC) [Entitic vol] 86.2 fL Normal 83.5-101 [facility] Comment on above: Performed By: #### B CART DRIVER, CK, MG, CBC, HS TROP, PTT, PT, CMP #### [address] Mean Corpuscular HGB Conc 34.9 g/dL Normal 32.5-35.6 [facility] Comment on above: Performed By: #### B CART DRIVER, CK, MG, CBC, HS TROP, PTT, PT, CMP #### [address] Monocytes (Bld) [#/Vol] 0.8 10*3/uL Normal 0.0-0.8 [facility] Comment on above: Performed By: #### B CART DRIVER, CK, MG, CBC, HS TROP, PTT, PT, CMP #### [address] Monocytes/100 WBC (Bld) 16.39 % Normal 0.00-20.00 [facility] Comment on above: Performed By: #### B CART DRIVER, CK, MG, CBC, HS TROP, PTT, PT, CMP #### [address] Monocytes/100 WBC (Bld) 10.1 % Normal . [facility] Comment on above: Performed By: #### B CART DRIVER, CK, MG, CBC, HS TROP, PTT, PT, CMP #### [address] Neutrophils (Bld) [#/Vol] 4.9 10*3/uL Normal 1.8-7.7 [facility] Comment on above: Performed By: #### B CART DRIVER, CK, MG, CBC, HS TROP, PTT, PT, CMP #### [address] Neutrophils/100 WBC (Bld) 61.2 % Normal . [facility] Comment on above: Performed By: #### B CART DRIVER, CK, MG, CBC, HS TROP, PTT, PT, CMP #### [address] NRBC% 0.1 /100{WBC} Normal 0-0.5 [facility] Comment on above: Performed By: #### B CART DRIVER, CK, MG, CBC, HS TROP, PTT, PT, CMP #### [address] Platelet mean volume (Bld) [Entitic vol] 8.4 fL Normal 6.6-10.1 [facility] Comment on above: Performed By: #### B CART DRIVER, CK, MG, CBC, HS TROP, PTT, PT, CMP #### [facility] [address] Platelets (Bld) [#/Vol] 181 10*3/uL Normal 150-450 [facility] Comment on above: Performed By: #### B CART DRIVER, CK, MG, CBC, HS TROP, PTT, PT, CMP #### [facility] [address] RBC (Bld) [#/Vol] 4.74 10*6/uL Normal 3.90-5.60 [facility] Comment on above: Performed By: #### B CART DRIVER, CK, MG, CBC, HS TROP, PTT, PT, CMP #### [address] WBC (Bld) [#/Vol] 8.1 10*3/uL Normal 4.1-10.5 [facility] Comment on above: Performed By: #### B CART DRIVER, CK, MG, CBC, HS TROP, PTT, PT, CMP #### [facility] [address] Comprehensive Metabolic Pane maria esther 06-14-2023 Albumin [Mass/Vol] 4.1 g/dL Normal 3.5-5.7 [facility] Comment on above: Performed By: #### B CART DRIVER, CK, MG, CBC, HS TROP, PTT, PT, CMP #### [facility] [address] Albumin/Globulin [Mass ratio] 1.6 {ratio} Normal [facility] Comment on above: Performed By: #### B CART DRIVER, CK, MG, CBC, HS TROP, PTT, PT, CMP #### [address] ALP [Catalytic activity/Vol] 59 U/L Normal 34-104 [facility] Comment on above: Performed By: #### B CART DRIVER, CK, MG, CBC, HS TROP, PTT, PT, CMP #### [place] [address] ALT [Catalytic activity/Vol] 37 U/L Normal 7-52 [facility] Comment on above: Performed By: #### B CART DRIVER, CK, MG, CBC, HS TROP, PTT, PT, CMP #### [address] Anion gap [Moles/Vol] 11.5 mmol/L Normal 6.0-15.0 [facility] Comment on above: Performed By: #### B CART DRIVER, CK, MG, CBC, HS TROP, PTT, PT, CMP #### [address] AST [Catalytic activity/Vol] 29 U/L Normal 13-39 [facility] Comment on above: Performed By: #### B CART DRIVER, CK, MG, CBC, HS TROP, PTT, PT, CMP #### [address] Bilirubin [Mass/Vol] 0.4 mg/dL Normal 0.3-1.0 [facility] Comment on above: Performed By: #### B CART DRIVER, CK, MG, CBC, HS TROP, PTT, PT, CMP #### [address] Calcium [Mass/Vol] 9.0 mg/dL Normal 8.6-10.3 [facility] Comment on above: Performed By: #### B CART DRIVER, CK, MG, CBC, HS TROP, PTT, PT, CMP #### [address] Chloride [Moles/Vol] 105 mmol/L Normal 98-107 [facility] Comment on above: Performed By: #### B CART DRIVER, CK, MG, CBC, HS TROP, PTT, PT, CMP #### [address] CO2 [Moles/Vol] 23.4 mmol/L Normal 21.0-31.0 [facility] Comment on above: Performed By: #### B CART DRIVER, CK, MG, CBC, HS TROP, PTT, PT, CMP #### [facility] [address] Creatinine [Mass/Vol] 0.89 mg/dL Normal 0.70-1.30 [facility] Comment on above: Performed By: #### B CART DRIVER, CK, MG, CBC, HS TROP, PTT, PT, CMP #### [facility] [address] Creatinine Clr Calc Pharmacy 92.42 [facility] Comment on above: Performed By: #### B CART DRIVER, CK, MG, CBC, HS TROP, PTT, PT, CMP #### [facility] [address] GFR/1.73 sq M.predicted MDRD (S/P/Bld) [Vol rate/Area] mL/min/{1.73_m2} [facility] Comment on above: Performed By: #### B CART DRIVER, CK, MG, CBC, HS TROP, PTT, PT, CMP #### [address] Globulin (S) [Mass/Vol] 2.5 g/dL [facility] Comment on above: Performed By: #### B CART DRIVER, CK, MG, CBC, HS TROP, PTT, PT, CMP #### [address] Glucose [Mass/Vol] 144 mg/dL High 70-100 [facility] Comment on above: Result Comment: [facility] Glucose Reference Range is dependent on time and content of last meal. Glucose of more than 200 mg/dL in a nonstressed, ambulatory subject supports the diagnosis of Diabetes Mellitus. ADA recommended reference range Performed By: #### B CART DRIVER, CK, MG, CBC, HS TROP, PTT, PT, CMP #### [address] Potassium [Moles/Vol] 3.9 mmol/L Normal 3.5-5.1 [facility] Comment on above: Performed By: #### B CART DRIVER, CK, MG, CBC, HS TROP, PTT, PT, CMP #### [address] [place] [address] [place] Protein [Mass/Vol] 6.6 g/dL Normal 6.4-8.9 [facility] Comment on above: Performed By: #### B CART DRIVER, CK, MG, CBC, HS TROP, PTT, PT, CMP #### [facility] [address] Sodium [Moles/Vol] 136 mmol/L Normal 136-145 [facility] Comment on above: Performed By: #### B CART DRIVER, CK, MG, CBC, HS TROP, PTT, PT, CMP #### [facility] [address] Urea nitrogen [Mass/Vol] 12 mg/dL Normal 7-25 [facility] Comment on above: Performed By: #### B CART DRIVER, CK, MG, CBC, HS TROP, PTT, PT, CMP #### [facility] [address] Creatine Kinaseon 06-14-2023 CK [Catalytic activity/Vol] 185 U/L Normal 30-223 [facility] Comment on above: Performed By: #### C OVID19 FLU RSV, CEPHEID NEG #### [address] Creatine kinase [Enzymatic a ctivity/volume] in Serum or PlasmaOrdered By: Jasper Martinez on 06-14-2023 CK [Catalytic activity/Vol] 185 U/L 30-223 [facility] Creatinine [Mass/volume] in Serum or PlasmaOrdered By: Jasper Martinez on 06-14-2023 Creatinine [Mass/Vol] 0.89 mg/dL 0.70-1.30 [facility] ECG 12 lead ECGon 06-14-2023 ECG 12 lead ECG [facility] [place] [address] [place] [address] Electrocardiograph Report Signed Patient: Demarcus Panchal MR#: [id number] : 1955 Acct:[id number] Age/Sex: 68 / M ADM Date: 06/14/23 Loc: ER Room: Type: [facility] ER Attending Dr: Ordering Provider: Jasper [...] sinus rhythm Confirmed by Jasper MARTINEZ DO ([id number]) on 06/14/2023 2:25:14 PM Referred By: Electronically Signed By:Jasper MARTINEZ DO Transcribed By: MUS Signed By Jasper Martinez DO 0 06/14/23 1425 Normal [facility] Eosinophils Auto (Bld) [#/Vo l]Ordered By: Jasper Martinez on 06-14-2023 Eosinophils (Bld) [#/Vol] 0.8 10*3/uL 0.0-0.45 [facility] Eosinophils/100 WBC Auto (Bl d)Ordered By: Jasper Martinez on 06-14-2023 Eosinophils/100 WBC (Bld) 9.6 % . [facility] Erythrocyte distribution wid th Auto (RBC) [Ratio]Ordered By: Jasper Martinez on 06-14-2023 Erythrocyte distribution width (RBC) [Ratio] 14.4 % 12.0-14.8 [facility] Globulin Calc (S) [Mass/Vol] Ordered By: Jasper Martinez on 06-14-2023 Globulin (S) [Mass/Vol] 2.5 g/dL [facility] Glucose [Mass/volume] in Ser um or PlasmaOrdered By: Jasper Martinez on 06-14-2023 Glucose [Mass/Vol] 144 mg/dL 70-100 [facility] Comment on above: ADA recommended refe rence rangeRandom Glucose Reference Range is dependent on time and content of last meal. Glucose of more than 200 mg/dL in a nonstressed, ambulatory subject supports the diagnosis of Diabetes Mellitus. Hematocrit Auto (Bld) [Volum e fraction]Ordered By: Jasper Martinez on 06-14-2023 Hematocrit (Bld) [Volume fraction] 40.8 % 38.8-50.0 [facility] Hemoglobin [Mass/volume] in BloodOrdered By: Jasper Martinez on 06-14-2023 Hemoglobin (Bld) [Mass/Vol] 14.3 g/dL 13.0-17.0 [facility] INR in Platelet poor plasma by Coagulation assayOrdered By: Jasper Martinez on 06-14-2023 INR Coag (PPP) [Relative time] 1.1 {INR} [facility] Comment on above: INR Therapeutic Rang [...] RBC Auto (Bld) [#/Vol] 8.1 10*3/uL 4.1-10.5 [facility] Lymphocytes Auto (Bld) [#/Vo l]Ordered By: Jasper Martinez on 06-14-2023 Lymphocytes (Bld) [#/Vol] 1.5 10*3/uL 1.00-4.8 [facility] Lymphocytes/100 WBC Auto (Bl d)Ordered By: Jasper Martinez on 06-14-2023 Lymphocytes/100 WBC (Bld) 18.5 % . [facility] MCH Auto (RBC) [Entitic mass ]Ordered By: Jasper Martinez on 06-14-2023 MCH (RBC) [Entitic mass] 30.1 pg 27.5-35.2 [facility] MCHC Auto (RBC) [Mass/Vol]Or dered By: Jasper Martinez on 06-14-2023 MCHC (RBC) [Mass/Vol] 34.9 g/dL 32.5-35.6 [facility] MCV Auto (RBC) [Entitic vol] Ordered By: Jasper Martinez on 06-14-2023 MCV (RBC) [Entitic vol] 86.2 fL 83.5-101 [facility] Magnesiumon 06-14-2023 Magnesium [Mass/Vol] 2.0 mg/dL Normal 1.9-2.7 [facility] Comment on above: Result Comment: PERF ORMED BY: [facility] [address] [place] [address] PATHOLOGIST PREPRESS TECHNICIAN RAPHAEL RANGEL M.D. Performed By: #### B CART DRIVER, CK, MG, CBC, HS TROP, PTT, PT, CMP #### [facility] [address] [place] [id number] [facility] Magnesium [Mass/volume] in S taylor or PlasmaOrdered By: Jasper Maritnez on 06-14-2023 Magnesium [Mass/Vol] 2.0 mg/dL 1.9-2.7 [facility] Monocyte distribution width [Entitic volume] in Blood by AutomatedOrdered By: Jasper Martinez on 06-14-2023 Monocyte distribution width Auto (Bld) [Entitic vol] 16.39 % 0.00-20.00 [facility] Monocytes Auto (Bld) [#/Vol] Ordered By: Jasper Martinez on 06-14-2023 Monocytes (Bld) [#/Vol] 0.8 10*3/uL 0.0-0.8 [facility] Monocytes/100 WBC Auto (Bld) Ordered By: Jasper Martinez on 06-14-2023 Monocytes/100 WBC (Bld) 10.1 % . [facility] Natriuretic peptide B [Mass/ Vol]Ordered By: Jasper Martinez on 06-14-2023 Natriuretic peptide B (Bld) [Mass/Vol] 67.0 pg/mL 5-100 [facility] Neutrophils Auto (Bld) [#/Vo l]Ordered By: Japser Martinez on 06-14-2023 Neutrophils (Bld) [#/Vol] 4.9 10*3/uL 1.8-7.7 [facility] Neutrophils/100 WBC Auto (Bl d)Ordered By: Jasper Martinez on 06-14-2023 Neutrophils/100 WBC (Bld) 61.2 % . [facility] No Panel InformationOrdered By: Jasper Martinez on 06-14-2023 Estimated GFR (CKD-EPI) > 60.0 mL/Min [facility] Creatinine Clearance (Chem 92.42 [facility] Nucleated erythrocytes [Pres ence] in Blood by Automated countOrdered By: Jasper Martinez on 06-14-2023 Nucleated RBC Auto Ql (Bld) 0.1 /100{WBC} 0-0.5 [facility] Partial Thromboplastin Timeo n 06-14-2023 aPTT Coag (Bld) [Time] 30.2 s Normal 25.1-36.5 [facility] Comment on above: Result Comment: A he matocrit value greater than 55% may lead to inaccurate results in coagulation testing. Patients having hematocrit values >55% require a special collection tube for coagulation studies. Please contact the laboratory at [phone] for redraw instructions. PERFORMED BY: [place] [address] PATHOLOGIST [employer]PRESS TECHNICIAN RAPHAEL RANGEL M.D. Performed By: #### C OVID19 FLU RSV, CEPHEID NEG #### [address] Platelet mean volume Auto (B ld) [Entitic vol]Ordered By: Jasper Martinez on 06-14-2023 Platelet mean volume (Bld) [Entitic vol] 8.4 fL 6.6-10.1 [facility] Platelets Auto (Bld) [#/Vol] Ordered By: Jasper Martinez on 06-14-2023 Platelets (Bld) [#/Vol] 181 10*3/uL 150-450 [facility] Potassium [Moles/volume] in Serum or PlasmaOrdered By: Jasper Martinez on 06-14-2023 Potassium [Moles/Vol] 3.9 mmol/L 3.5-5.1 [facility] Protein [Mass/volume] in Ser um or PlasmaOrdered By: Jasper Martinez on 06-14-2023 Protein [Mass/Vol] 6.6 g/dL 6.4-8.9 [facility] Prothrombin Time INRon 06-14 INR Coag (PPP) [Relative time] 1.1 {INR} Normal [facility] Comment on above: Result Comment: INR [...] 3 - 4.5 Performed By: #### B CART DRIVER, CK, MG, CBC, HS TROP, PTT, PT, CMP #### [facility] [address] [place] [id number] [facility] PT Coag (PPP) [Time] 12.1 s Normal 9.0-12.9 [facility] Comment on above: Result Comment: A he matocrit value greater than 55% may lead to inaccurate results in coagulation testing. Patients having hematocrit values >55% require a special collection tube for coagulation studies. Please contact the laboratory at [phone] for redraw instructions. Performed By: #### B CART DRIVER, CK, MG, CBC, HS TROP, PTT, PT, CMP #### [facility] [address] [place] [id number] [facility] Prothrombin time (PT)Ordered By: Jasper Martinez on 06-14-2023 PT Coag (PPP) [Time] 12.1 s 9.0-12.9 [facility] Comment on above: A hematocrit value g reater than 55% may lead to inaccurate results in coagulation testing. Patients having hematocrit values >55% require a special collection tube for coagulation studies. Please contact the laboratory at [phone] for redraw instructions. RBC Auto (Bld) [#/Vol]Ordere d By: Jasper Martinez on 06-14-2023 RBC (Bld) [#/Vol] 4.74 10*6/uL 3.90-5.60 [facility] Serum or plasma albumin/glob ulin mass ratioOrdered By: Jasper Martinez on 06-14-2023 Albumin/Globulin [Mass ratio] 1.6 {ratio} [facility] Serum or plasma anion gap de terminationOrdered By: Jasper Martinez on 06-14-2023 Anion gap [Moles/Vol] 11.5 mmol/L 6.0-15.0 [facility] Sodium [Moles/volume] in Ser um or PlasmaOrdered By: Jasper Martinez on 06-14-2023 Sodium [Moles/Vol] 136 mmol/L 136-145 [facility] Troponin I High Sensitivityo n 06-14-2023 Troponin I High Sensitivity 26.8 pg/mL High 0.0-20.0 [facility] Comment on above: Result Comment: PERF ORMED BY: [place] [address] PATHOLOGIST [employer] TECHNICIAN RAPHAEL RANGEL M.D. Performed By: #### C OVID19 FLU RSV, CEPHEID NEG #### [facility] [address] Troponin I.cardiac [Mass/vol ume] in Serum or Plasma by Detection limit <= 0.01 ng/Ordered By: Jasper Martinez on 06-14-2023 Troponin I.cardiac DL <= 0.01 ng/mL [Mass/Vol] 26.8 pg/mL 0.0-20.0 [facility] Urea nitrogen [Mass/volume] in Serum or PlasmaOrdered By: Jasper Martinez on 06-14-2023 Urea nitrogen [Mass/Vol] 12 mg/dL 7-25 [facility] WBC Auto (Bld) [#/Vol]Ordere d By: Jasper Martinez on 06-14-2023 WBC (Bld) [#/Vol] 8.1 10*3/uL 4.1-10.5 [facility] XR chest 2V*on 06-14-2023 XR chest 2V* [facility] [address] [place] [address] [place] [address] XRay Report Signed Patient: Demarcus Panchal MR#: [id number] 652 : 1955 Acct:[id number] Age/Sex: 68 / M ADM Date: 06/14/23 Loc: ER Room: Type: [facility] ER Attending Dr: Copies to: Jasper [...] Salvador Nguyễn M.D.06/14/2023 1:59 PM Dictation Location: [facility]- Transcribed By: [facility] 06/14/23 1359 Dictated By: Salvador Nguyễn DO 06/14/23 1354 Signed By: 06/14/23 1359 Normal [facility] Cardiac echo study Procedure on 03-20-2023 Ordered by an unspec ified provider. [facility] Alanine aminotransferase [En zymatic activity/volume] in Serum or PlasmaOrdered By: Sera Flower on 02-05-2023 ALT [Catalytic activity/Vol] 51 U/L 7-52 [facility] Albumin [Mass/volume] in Ser um or Plasma by Bromocresol green (BCG) dye binding methoOrdered By: Sera Flower on 02-05-2023 Albumin BCG dye [Mass/Vol] 4.4 g/dL 3.5-5.7 [facility] Alkaline phosphatase [Enzyma tic activity/volume] in Serum or PlasmaOrdered By: Sera Flower on 02-05-2023 ALP [Catalytic activity/Vol] 61 U/L 34-104 [facility] Aspartate aminotransferase [ Enzymatic activity/volume] in Serum or PlasmaOrdered By: Sera Flower on 02-05-2023 AST [Catalytic activity/Vol] 39 U/L 13-39 [facility] Bilirubin.total [Mass/volume ] in Serum or PlasmaOrdered By: Sera Flower on 02-05-2023 Bilirubin [Mass/Vol] 0.7 mg/dL 0.3-1.0 [facility] Calcium [Mass/volume] in Ser um or PlasmaOrdered By: Sera Flower on 02-05-2023 Calcium [Mass/Vol] 9.1 mg/dL 8.6-10.3 [facility] Carbon dioxide, total [Moles /volume] in Serum or PlasmaOrdered By: Sera Flower on 02-05-2023 CO2 [Moles/Vol] 28.0 mmol/L 21.0-31.0 [facility] Chloride [Moles/volume] in S taylor or PlasmaOrdered By: Sera Flower on 02-05-2023 Chloride [Moles/Vol] 103 mmol/L 98-107 [facility] Comprehensive Metabolic Pane maria esther 02-05-2023 Albumin [Mass/Vol] 4.4 g/dL Normal 3.5-5.7 [facility] Comment on above: Order Comment: PT IS FASTING Performed By: #### C MP #### [facility] [address] Albumin/Globulin [Mass ratio] 2.6 {ratio} Normal [facility] Comment on above: Order Comment: PT IS FASTING Performed By: #### C MP #### [facility] [address] ALP [Catalytic activity/Vol] 61 U/L Normal 34-104 [facility] Comment on above: Order Comment: PT IS FASTING Result Comment: PERF ORMED BY: [place] [address] PATHOLOGIST [employer] TECHNICIAN RAPHAEL RANGEL M.D. Performed By: #### C MP #### [facility] [address] ALT [Catalytic activity/Vol] 51 U/L Normal 7-52 [facility] Comment on above: Order Comment: PT IS FASTING Performed By: #### C MP #### [facility] [address] Anion gap [Moles/Vol] 11.4 mmol/L Normal 6.0-15.0 [facility] Comment on above: Order Comment: PT IS FASTING Performed By: #### C MP #### [facility] [address] AST [Catalytic activity/Vol] 39 U/L Normal 13-39 [facility] Comment on above: Order Comment: PT IS FASTING Performed By: #### C MP #### [facility] [address] [place] [id number] [facility] Bilirubin [Mass/Vol] 0.7 mg/dL Normal 0.3-1.0 [facility] Comment on above: Order Comment: PT IS FASTING Performed By: #### C MP #### [facility] [address] Calcium [Mass/Vol] 9.1 mg/dL Normal 8.6-10.3 [facility] Comment on above: Order Comment: PT IS FASTING Performed By: #### C MP #### [facility] [address] Chloride [Moles/Vol] 103 mmol/L Normal 98-107 [facility] Comment on above: Order Comment: PT IS FASTING Performed By: #### C MP #### [address] CO2 [Moles/Vol] 28.0 mmol/L Normal 21.0-31.0 [facility] Comment on above: Order Comment: PT IS FASTING Performed By: #### C MP #### [facility] [address] Creatinine [Mass/Vol] 1.00 mg/dL Normal 0.70-1.30 [facility] Comment on above: Order Comment: PT IS FASTING Performed By: #### C MP #### [facility] [address] [place] [address] [place] GFR/1.73 sq M.predicted MDRD (S/P/Bld) [Vol rate/Area] mL/min/{1.73_m2} [facility] Comment on above: Order Comment: PT IS FASTING Performed By: #### C MP #### [facility] [address] [place] [address] [place] Globulin (S) [Mass/Vol] 1.7 g/dL [facility] Comment on above: Order Comment: PT IS FASTING Performed By: #### C MP #### [facility] [address] [place] [address] [place] Glucose [Mass/Vol] 93 mg/dL Normal 70-100 [facility] Comment on above: Order Comment: PT IS FASTING Result Comment: [place] Glucose Reference Range is dependent on time and content of last meal. Glucose of more than 200 mg/dL in a nonstressed, ambulatory subject supports the diagnosis of Diabetes Mellitus. ADA recommended reference range Performed By: #### C MP #### [facility] [address] Potassium [Moles/Vol] 4.4 mmol/L Normal 3.5-5.1 [facility] Comment on above: Order Comment: PT IS FASTING Performed By: #### C MP #### [facility] [address] [place] [address] [place] Protein [Mass/Vol] 6.1 g/dL Low 6.4-8.9 [facility] Comment on above: Order Comment: PT IS FASTING Performed By: #### C MP #### [facility] [address] [place] [address] [place] Sodium [Moles/Vol] 138 mmol/L Normal 136-145 [facility] Comment on above: Order Comment: PT IS FASTING Performed By: #### C MP #### [facility] [address] [place] [address] [place] Urea nitrogen [Mass/Vol] 15 mg/dL Normal 7-25 [facility] Comment on above: Order Comment: PT IS FASTING Performed By: #### C MP #### [facility] [address] [place] [id number] [place] Creatinine [Mass/volume] in Serum or PlasmaOrdered By: Sera Flower on 02-05-2023 Creatinine [Mass/Vol] 1.00 mg/dL 0.70-1.30 [facility] ECH echo transthoracicon [facility] echo transthoracic [facility] [address] [place] [address] [place] [address] Echocardiogram Signed Patient: Demarcus Panchal MR#: [id number] 652 : 1955 Acct:[id number] Age/Sex: 68 / M ADM Date: 02/05/23 Loc: Room: Type: [facility] Attending Dr: Rene Castro MD Ordering Provider: Rene Castro MD, [facility] Date of Service: 02/05/23/ ECH/[facility] echo transthoracic: HTN, ISCHEMIC CARDIOMYOPATHY Copies to: Rene Castro MD, [facility] BSA: 2.2 m2 BP: 141/82 mmHg HR: 53 Reason For Study: HTN, ISCHEMIC CARDIOMYOPATHY History: HTN, HLD, Former Smoker, [place], 5 Stents, Asthma, Emphysema, COVID Interpretation Summary [...] 02/05/23 1042 Signed By: Rene Castro MD, [facility] 02/05/23 1207 Normal [facility] Globulin Calc (S) [Mass/Vol] Ordered By: Sera Flower on 02-05-2023 Globulin (S) [Mass/Vol] 1.7 g/dL [facility] Glucose [Mass/volume] in Ser um or PlasmaOrdered By: Sera Flower on 02-05-2023 Glucose [Mass/Vol] 93 mg/dL 70-100 [facility] Comment on above: ADA recommended refe rence rangeRandom Glucose Reference Range is dependent on time and content of last meal. Glucose of more than 200 mg/dL in a nonstressed, ambulatory subject supports the diagnosis of Diabetes Mellitus. No Panel InformationOrdered By: Sera Flower on 02-05-2023 Estimated GFR (CKD-EPI) > 60.0 mL/Min [facility] Creatinine Clearance (Chem N/A [facility] No Panel Informationon 02-05 [facility] daniel 250 DO Work Phone: Potassium [Moles/volume] in Serum or PlasmaOrdered By: Sera Flower on 02-05-2023 Potassium [Moles/Vol] 4.4 mmol/L 3.5-5.1 [facility] Protein [Mass/volume] in Ser um or PlasmaOrdered By: Sera Flower on 02-05-2023 Protein [Mass/Vol] 6.1 g/dL 6.4-8.9 [facility] Serum or plasma albumin/glob ulin mass ratioOrdered By: Sera Flower on 02-05-2023 Albumin/Globulin [Mass ratio] 2.6 {ratio} [facility] Serum or plasma anion gap de terminationOrdered By: Sera Flower on 02-05-2023 Anion gap [Moles/Vol] 11.4 mmol/L 6.0-15.0 [facility] Sodium [Moles/volume] in Ser um or PlasmaOrdered By: Sera Flower on 02-05-2023 Sodium [Moles/Vol] 138 mmol/L 136-145 [facility] Urea nitrogen [Mass/volume] in Serum or PlasmaOrdered By: Sera Flower on 02-05-2023 Urea nitrogen [Mass/Vol] 15 mg/dL 7- [facility] CARDIAC STRESS/REST INJE CTIONon 01-03-2023 [facility] CARDIAC STRESS/REST INJECTION Patient Name: DEMARCUS PANCHAL STUDY: MYOCARDIAL PERFUSION STRESS TEST WITH LEXISCAN Performing facility: [facility], [address] [place] [address], [address], [address] Provider: Rene Castro MD, [facility] PCP: Dr. Hunter Flower Supervising provider: Danna Davis DO, [facility] INDICATION: CAD; HTN Hyperlipidemia Ischemic cardiomyopathy HISTORY: Gender: M; Age: 68 y/o ; Height: 172.72 cm; Weight: 859.0999261 kg. CAD; High Cholesterol; HTN; Quit smoking 38 years ago. Cardiac catheterization on 2009. PTCA on 2009. COMPARISON: Previous nuclear testing completed at [facility]. ACCESSION NUMBER(S): [id number]; [id number]; [id number] ORDERING CLINICIAN: RENE CASTRO TECHNIQUE: TWO DAY [...] Electronically signed by: RENE CASTRO MD Normal [facility] No Panel Informationon 01-03 Normal -[facility]-[place] daniel 250 DO Work Phone: Office Visit [...] Weight Tips; Status:Complete - Retrospective Authorization; Done: [id number] Some eating tips that can help you lose weight.; Status:Complete - Retrospective Authorization; Done: [id number] Essential hypertension, Ischemic cardiomyopathy Renew: Carvedilol 6.25 MG Oral Tablet (Coreg); TAKE 1 TABLET TWICE DAILY WITH MEALS SocHx: Former smoker Stop: Losartan Potassium 25 MG Oral Tablet Tobacco Use Screening; Status:Complete; Done: [id number] Unlinked Stop: hydroCHLOROthiazide 25 MG Oral Tablet [...] emphasis on low-calorie diet Rene Castro MD, [facility] Surgical History Problems History of Coronary artery [...] No a (more content not included)... Normal [facility] Tobacco Screening.on Adult depression screening assessment No [facility] 250 DO Work Phone: Fall risk assessment a) No falls within the last year [facility] 250 DO Work Phone: Tobacco use status [facility] b) No [facility] 250 DO Work Phone: MRI Soft Tissue [...] by Ethan Walsh on 07/16/2022 1246 Normal [facility] MRI Brain w/o + w/on 023 MRI [...] by Sean Trejo on 07/01/2022 0911 Normal [facility] Shaquille 06-21-2022 [facility]ALENN Telephone (INTMLN) -- KVNGDEMARCUS ([id number]) 1955 Date Time Provider Department 06/21/22 DEANDRA BENDER During your visit today, we recorded the following information about you: Delores Mccollum 06/21/2022 12:54 PM Signed [facility] called today. : 1955 Allergies: Codeine, Codeine-Guaifenesin, and Guaifenesin (home) [phone] (cell) Reason for call: Sasha F:[phone] Asking for the MRI orders and office notes to be faxed over to [facility]. Patient will be having them done there. Patient last appointment: Visit date not found The patients preferred pharmacy has been captured for this encounter? not asked Delores Mccollum Orquidea Ryan [facility] 06/21/2022 2:03 PM Signed Notes and MRI [...] Status:Closed by ORQUIDEA SIBLEY on 06/21/22 Normal [facility] XR Ribs w/ PA Chest Left*on 03-13-2022 [...] by Ethan Walsh on 03/13/2022 1254 Normal [facility] XR Chest 2 Views*on 01-18-20 22 XR Chest 2 Views* COMPARISON: none TECHNIQUE: Upright PA and lateral views of the chest were obtained. FINDINGS: Heart is normal in size. Lungs are clear and well expanded. No pleural effusion or pneumothorax. The bony thorax is unremarkable. IMPRESSION: NO ACUTE CARDIOPULMONARY ABNORMALITY. Report reported and signed by AMALIA LOGAN on 01/17/2022 1243 Normal [facility] Tobacco Screening.on 022 Adult depression screening assessment No [facility] daniel 250 DO Work Phone: Fall risk assessment a) No falls within the last year [facility] daniel 250 DO Work Phone: Tobacco use status [facility] b) No [facility] daniel 250 DO Work Phone: CT [...] by AMALIA LOGAN on 08/04/2021 1346 Normal [facility] Complete Blood Count with Au to Diffon 07-29-2021 Basophils (Bld) [#/Vol] 0.05 10*3/uL Normal 0.00-0.20 [facility] Comment on above: Performed By: #### C MP, CBCAD #### [facility] [address] [place], [place] [id number] Basophils/100 WBC (Bld) 0.8 % Normal [facility] Comment on above: Performed By: #### C MP, CBCAD #### [facility] [address] [place], [place] [id number] Eosinophils (Bld) [#/Vol] 0.46 10*3/uL Normal 0.02-0.50 [facility] Comment on above: Performed By: #### C JOSE ANTONIO, CBCAD #### [facility] [address] [place], [place] [id number] Eosinophils/100 WBC (Bld) 7.7 % Normal [facility] Comment on above: Performed By: #### C JOSE ANTONIO, CBCAD #### [facility] [address] [place], [place] [id number] Erythrocyte distribution width (RBC) [Ratio] 13.3 % Normal 11.0-15.0 [facility] Comment on above: Performed By: #### C JOSE ANTONIO, CBCAD #### [facility] [address] [place], [place] [id number] Hematocrit (Bld) [Volume fraction] 42.2 % Normal 38.5-50.0 [facility] Comment on above: Performed By: #### C JOSE ANTONIO, CBCAD #### [facility] [address] [place], [place] [id number] Hemoglobin (Bld) [Mass/Vol] 14.5 g/dL Normal 13.0-17.1 [facility] Comment on above: Performed By: #### C MP, CBCAD #### [facility] [address] [place], [place] [id number] Lymphocytes (Bld) [#/Vol] 1.6 10*3/uL Normal 0.9-3.9 [facility] Comment on above: Performed By: #### C JOSE ANTONIO, CBCAD #### [facility] [address] [place], [place] [id number] Lymphocytes/100 WBC (Bld) 26.1 % Normal [facility] Comment on above: Performed By: #### C MP, CBCAD #### [facility] [address] [place], [place] [id number] MCH (RBC) [Entitic mass] 29.7 pg Normal 27.0-33.0 [facility] Comment on above: Performed By: #### C MP, CBCAD #### [facility] [address] [place], [place] [id number] MCHC (RBC) [Mass/Vol] 34.4 g/dL Normal 32.0-36.0 [facility] Comment on above: Performed By: #### C MP, CBCAD #### [facility] [address] [place], [place] [id number] MCV (RBC) [Entitic vol] 86 fL Normal 80-100 [facility] Comment on above: Performed By: #### C MP, CBCAD #### [facility] [address] [place], [place] [id number] Monocytes (Bld) [#/Vol] 0.9 10*3/uL Normal 0.2-0.9 [facility] Comment on above: Performed By: #### C MP, CBCAD #### [facility] [address] [place], [place] [id number] Monocytes/100 WBC (Bld) 14.6 % Normal [facility] Comment on above: Performed By: #### C MP, CBCAD #### [facility] [address] [place], [place] [id number] Neutrophils (Bld) [#/Vol] 3.0 10*3/uL Normal 1.5-7.8 [facility] Comment on above: Performed By: #### C MP, CBCAD #### [facility] [address] [place], [place] [id number] Neutrophils/100 WBC (Bld) 50.5 % Normal [facility] Comment on above: Performed By: #### C MP, CBCAD #### [facility] [address] [place], [place] [id number] Platelet mean volume (Bld) [Entitic vol] 10.90 fL Normal 7.50-12.50 [facility] Comment on above: Performed By: #### C MP, CBCAD #### [facility] [address] [place], [place] [id number] Platelets (Bld) [#/Vol] 166 10*3/uL Normal 140-400 [facility] Comment on above: Performed By: #### C MP, CBCAD #### [facility] [address] [place], [place] [id number] RBC (Bld) [#/Vol] 4.89 10*6/uL Normal 4.20-5.80 [facility] Special[facility] Comment on above: Performed By: #### C JOSE ANTONIO, CBCAD #### [facility] [address] [place], [place] [id number] RDW-SD 41.2 fL Normal 37.0-50.0 [facility] Comment on above: Performed By: #### C JOSE ANTONIO, CBCAD #### [facility] [address] [place], [place] [id number] WBC (Bld) [#/Vol] 5.9 10*3/uL Normal 3.8-11.0 [facility] Comment on above: Performed By: #### C JOSE ANTONIO, CBCAD #### [facility] [address] [place], [place] [id number] Comprehensive Metabolic Pane [facility] 07-29-2021 Albumin [Mass/Vol] 4.6 g/dL Normal 3.6-5.1 [facility] Comment on above: Performed By: #### C MP, CBCAD #### [facility] [address] [place], [place] [id number] Albumin/Globulin [Mass ratio] 2.7 {ratio} High 1.0-2.5 [facility] Comment on above: Performed By: #### C MP, CBCAD #### [facility] [address] [place], [place] [id number] ALP [Catalytic activity/Vol] 74 U/L Normal 40-129 [facility] Comment on above: Performed By: #### C JOSE ANTONIO, CBCAD #### [facility] [address] [place], [place] [id number] ALT [Catalytic activity/Vol] 55 U/L High 9-46 [facility] Comment on above: Result Comment: 04/27 Female reference range changed. Performed By: #### C MP, CBCAD #### [facility] [address] [place], [place] [id number] Anion gap [Moles/Vol] 16 mmol/L Normal 12-20 [facility] Specialist Comment on above: Result Comment: Effe ctive 06/02/2019 reference range changed. Performed By: #### C MP, CBCAD #### [facility] [address] [place], [place] [id number] AST [Catalytic activity/Vol] 39 U/L Normal 10-40 [facility] Comment on above: Performed By: #### C MP, CBCAD #### [facility] [address] [place], [place] [id number] BUN/CREA 13 Ratio Normal 6-22 [facility] Comment on above: Performed By: #### C MP, CBCAD #### [facility] [address] [place], [place] [id number] Calcium [Mass/Vol] 9.0 mg/dL Normal 8.6-10.2 [facility] Comment on above: Performed By: #### C MP, CBCAD #### [facility] [address] [place], [place] [id number] Chloride [Moles/Vol] 107 mmol/L Normal 98-107 [facility] Comment on above: Performed By: #### C MP, CBCAD #### [facility] [address] [place], [place] [id number] CO2 [Moles/Vol] 20 mmol/L Normal 20-31 [facility] Comment on above: Performed By: #### C MP, CBCAD #### [facility] [address] [place], [place] [id number] Creatinine [Mass/Vol] 1.0 mg/dL Normal 0.7-1.4 [facility] Comment on above: Performed By: #### C MP, CBCAD #### [facility] [address] [place], [place] [id number] eGFRAA 94 mL/min/1.73m2 Normal >60 [facility] Comment on above: Performed By: #### C MP, CBCAD #### [facility] [address] [place], [place] [id number] eGFRNAA 78 mL/min/1.73m2 Normal >60 [facility] Comment on above: Performed By: #### C MP, CBCAD #### [facility] [address] [place], [place] [id number] Globulin (S) [Mass/Vol] 1.7 g/dL Low 1.9-3.7 [facility] Comment on above: Performed By: #### C MP, CBCAD #### [facility] [address] [place], [place] [id number] Glucose [Mass/Vol] 121 mg/dL High 65-99 [facility] Comment on above: Result Comment: For FASTING Glucose --- ADA reference ranges: Normal 65-99 mg/dl Prediabetes 100-125 Diabetes >/= 126 Performed By: #### C MP, CBCAD #### [facility] [address] [place], [place] [id number] Potassium [Moles/Vol] 4.2 mmol/L Normal 3.5-5.5 Nor [facility] Comment on above: Performed By: #### C MP, CBCAD #### [facility] [address] [place], [place] [id number] Protein [Mass/Vol] 6.3 g/dL Normal 6.1-8.1 [facility] Comment on above: Performed By: #### C MP, CBCAD #### [facility] [address] [place], [place] [id number] Sodium [Moles/Vol] 139 mmol/L Normal 135-146 [facility] Comment on above: Performed By: #### C MP, CBCAD #### [facility] [address] [place], [place] [id number] TBIL <0.3 Normal [facility] Comment on above: Performed By: #### C MP, CBCAD #### [facility] [address] [place], [place] [id number] Urea nitrogen [Mass/Vol] 12 mg/dL Normal 7-25 [facility] Comment on above: Performed By: #### C MP, CBCAD #### [facility] [address] [place], [place] [id number] Microalbumin (with Creat)on 07-29-2021 mALB <1.2 Low [facility] Comment on above: Result Comment: Unab le to calculate mALB/Crea ratio, mALB is <1.2 mg/dL mALB reference range not established. Performed By: #### m ALBC #### [facility] [address] [place], [place] [id number] UCREA 85 mg/dL Normal 39-259 [facility] Comment on above: Performed By: #### m ALBC #### [facility] [address] [place], [place] [id number] Prostatic Specific Antigen, Totalon 07-29-2021 TPSA 2.330 ng/mL Normal <4.000 [facility] Comment on above: Result Comment: PSA Test Method: ECLIA/Brandi e 601 Performed By: #### P SA #### [facility] [address] [place], [place] [id number] Q - URINALYSIS,COMPLETEon Appearance (U) CLEAR Normal CLEAR [facility] Comment on above: Order Comment: [facility] Testing performed at: [facility], [address] , [address] [place] [address], [id number], Director Of Cardiac Cath Lab: Rafi Agustin MD [facility] Collection Date/Time: [facility] Results Received Date/Time: [facility] Reported Date/Time: Performed By: #### 3 4F #### [facility] Default [address] [place] [address] BACTERIA NONE SEEN Normal NONE SEEN [facility] Comment on above: Order Comment: [facility] Testing performed at: [facility], [address] [address], [address] [place] [address], [id number], Director Of Cardiac Cath Lab: Rafi Agustin MD [facility] Collection Date/Time: [facility] Results Received Date/Time: [facility] Reported Date/Time: Performed By: #### 3 4F #### [facility] Default [address] [place] [address] Bilirubin Ql (U) Negative Normal NEGATIVE [facility] Comment on above: Order Comment: [facility] Testing performed at: [employer], [address] , [address] [place] [address], [address] [place] [address], Director Of Cardiac Cath Lab: Rafi Agustin MD [facility] Collection Date/Time: [facility] Results Received Date/Time: [facility] Reported Date/Time: Performed By: #### 3 4F #### [facility] Default [address] [place] [address] Color (U) YELLOW Normal YELLOW [facility] Comment on above: Order Comment: [facility] Testing performed at: [employer] [facility], [address] , [address] [place] [address], [address] [place] [address], Director Of Cardiac Cath Lab: Rafi Agustin MD [facility] Collection Date/Time: [facility] Results Received Date/Time: [facility] Reported Date/Time: Performed By: #### 3 4F #### [facility] Default [address] [place] [address] Glucose Ql (U) Negative Normal NEGATIVE [facility] Comment on above: Order Comment: [facility] Testing performed at: [employer], [facility], [address] , [address] [place] [address], [address] [place] [address], Director Of Cardiac Cath Lab: Rafi Agustin MD [facility] Collection Date/Time: [facility] Results Received Date/Time: [facility] Reported Date/Time: Performed By: #### 3 4F #### [facility] Default [address] [place] [address] HYALINE CAST NONE SEEN Normal NONE SEEN [facility] Comment on above: Order Comment: [facility] Testing performed at: [employer], [facility], [address] , [address] [place] [address], [address] [place] [address], Director Of Cardiac Cath Lab: Rafi Agustin MD [facility] Collection Date/Time: [facility] Results Received Date/Time: [facility] Reported Date/Time: Performed By: #### 3 4F #### [facility] Default [address] [place] [address] Ketones Ql (U) Negative Normal NEGATIVE [facility] Comment on above: Order Comment: [facility] Testing performed at: [employer], [address] [facility], [address] [place] [address], [address] [place] [address], Director Of Cardiac Cath Lab: Rafi Agustin MD [facility] Collection Date/Time: [facility] Results Received Date/Time: [facility] Reported Date/Time: Performed By: #### 3 4F #### [facility] Default [address] [place] [address] Leukocyte esterase Test strip Ql (U) Negative Normal NEGATIVE [facility] Comment on above: Order Comment: [facility] Testing performed at: [employer], [facility], [address] [facility], [address] [place] [address], [address] [place] [address], Director Of Cardiac Cath Lab: Rafi Agustin MD [facility] Collection Date/Time: [facility] Results Received Date/Time: [facility] Reported Date/Time: Performed By: #### 3 4F #### [facility] Default [address] [place] [address] Nitrite Ql (U) Negative Normal NEGATIVE [facility] Comment on above: Order Comment: [facility] Testing performed at: [employer], [facility], [address] [facility], [address] [place] [address], [address] [place] [address], Director Of Cardiac Cath Lab: Rafi Agustin MD [facility] Collection Date/Time: [facility] Results Received Date/Time: [facility] Reported Date/Time: Performed By: #### 3 4F #### [facility] Default [address] [place] [address] OCCULT BLOOD Negative Normal NEGATIVE [facility] Comment on above: Order Comment: [facility] Testing performed at: Q, [facility], [address] [facility], [address] [place] [address], [address] [place] [address], Director Of Cardiac Cath Lab: Rafi Agustin MD [facility] Collection Date/Time: [facility] Results Received Date/Time: [facility] Reported Date/Time: Performed By: #### 3 4F #### [facility] Default [address] [place] [address] pH (U) 6.5 [pH] Normal 5.0-8.0 [facility] Comment on above: Order Comment: [facility] Testing performed at: [employer] [employer] [facility], [address] [facility], [address] [place] [address], [address] [place] [address], Director Of Cardiac Cath Lab: Rafi Agustin MD [facility] Collection Date/Time: [facility] Results Received Date/Time: [facility] Reported Date/Time: Performed By: #### 3 4F #### [facility] Default [address] [place] [address] Protein Ql (U) Negative Normal NEGATIVE [facility] Comment on above: Order Comment: [facility] Testing performed at: Q, [facility], [address] [facility], [address] [place] [address], [address] [place] [address], Director Of Cardiac Cath Lab: Rafi Agustin MD [facility] Collection Date/Time: [facility] Results Received Date/Time: [facility] Reported Date/Time: Performed By: #### 3 4F #### [facility] Default [address] [place] [address] RBC NONE SEEN Normal < OR = 2 [facility] Comment on above: Order Comment: [facility] Testing performed at: Q, [facility], [address] [facility], [address] [place] [address], [address] [place] [address], Director Of Cardiac Cath Lab: Rafi Agustin MD [facility] Collection Date/Time: [facility] Results Received Date/Time: [facility] Reported Date/Time: Performed By: #### 3 4F #### [facility] Default [address] [place] [address] Specific gravity (U) [Rel density] 1.012 Normal 1.001-1.035 [facility] Comment on above: Order Comment: [facility] Testing performed at: [employer] [facility], [address] [facility], [address] [place] [address], [address] [place] [address], Director Of Cardiac Cath Lab: Rafi Agustin MD [facility] Collection Date/Time: [facility] Results Received Date/Time: [facility] Reported Date/Time: Performed By: #### 3 4F #### [facility] Default [address] [place] [address] SQUAMOUS EPITHELIAL CELLS NONE SEEN Normal < OR = 5 [facility] Comment on above: Order Comment: [facility] Testing performed at: [employer], [facility], [address] [facility], [address] [place] [address], [address] [place] [address], Director Of Cardiac Cath Lab: Rafi Agustin MD [facility] Collection Date/Time: [facility] Results Received Date/Time: [facility] Reported Date/Time: Performed By: #### 3 4F #### [facility] Default [address] [place] [address] WBC NONE SEEN Normal < OR = 5 [facility] Comment on above: Order Comment: [facility] Testing performed at: [employer], [address] [facility], [address] [place] [address], [address] [place] [address], Director Of Cardiac Cath Lab: Rafi Agustin MD [facility] Collection Date/Time: [facility] Results Received Date/Time: [facility] Reported Date/Time: Performed By: #### 3 4F #### [facility] Default [address] [place] [address] No Panel Information [facility] Vital Signs Date Time Vital Sign Value Performing Clinician Facility 10-18-2023 09:25-0400 Body height 172.7 cm Rene Castro MD Work Phone: [facility] 10-18-2023 09:25-0400 Body mass index (BMI) [Ratio] 36.31 kg/m2 Rene Castro MD Work Phone: [facility] 10-18-2023 09:25-0400 Body weight 108.32 kg Rene Castro MD Work Phone: [facility] 10-18-2023 09:25-0400 Diastolic blood pressure 76 mm[Hg] Rene Castro MD Work Phone: [facility] 10-18-2023 09:25-0400 Heart rate 68 /min Rene Castro MD Work Phone: [facility] 10-18-2023 09:25-0400 Systolic blood pressure 120 mm[Hg] Rene Castro MD Work Phone: [facility] 06-30-2023 10:23-0500 Body mass index (BMI) [Ratio] 35.28 kg/m2 Hosea Sifuentes DO Work Phone: [facility] 06-30-2023 10:23-0500 Body temperature 97.81 [degF] Hosea Sifuentes DO Work Phone: [facility] 06-30-2023 10:23-0500 Body weight 105.23 kg Hosea Sifuentes DO Work Phone: [facility] 06-30-2023 10:23-0500 Diastolic blood pressure 82 mm[Hg] Hosea Sifuentes DO Work Phone: [facility] 06-30-2023 10:23-0500 Heart rate 86 /min Hosea Sifuentes DO Work Phone: [facility] 06-30-2023 10:23-0500 Respiratory rate 18 /min Hosea Sifuentes DO Work Phone: [facility] 06-30-2023 10:23-0500 SaO2% (BldA) [Mass fraction] 94 % Hosea Sifuentes DO Work Phone: [facility] 06-30-2023 10:23-0500 Systolic blood pressure 138 mm[Hg] Hosea Sifuentes DO Work Phone: [facility] 06-14-2023 14:25-0500 Body temperature 97.7 [degF] MD Sera Flower Work Phone: [facility] 06-14-2023 14:25-0500 Diastolic blood pressure 74 mm[Hg] MD Sera Flower Work Phone: [facility] 06-14-2023 14:25-0500 Heart rate 78 /min MD Sera Flower Work Phone: [facility] 06-14-2023 14:25-0500 Respiratory rate 20 /min MD Sera Flower Work Phone: [facility] 06-14-2023 14:25-0500 SaO2% (BldA) [Mass fraction] 95 % MD Sera Flower Work Phone: [facility] 06-14-2023 14:25-0500 Systolic blood pressure 155 mm[Hg] MD Sera Flower Work Phone: [facility] 06-14-2023 11:48-0500 Body height 172.72 cm MD Sera Flower Work Phone: [facility] 06-14-2023 11:48-0500 Body weight 108.9 kg MD Sera Flower Work Phone: [facility] 03-23-2023 09:34-0400 Body height 172.7 cm Rene Castro MD Work Phone: [facility] 03-23-2023 09:34-0400 Body mass index (BMI) [Ratio] 35.12 kg/m2 Rene Castro MD Work Phone: [facility] 03-23-2023 09:34-0400 Body weight 104.78 kg Rene Castro MD Work Phone: [facility] 03-23-2023 09:34-0400 Diastolic blood pressure 72 mm[Hg] Rene Castro MD Work Phone: [facility] 03-23-2023 09:34-0400 Heart rate 60 /min Rene Castro MD Work Phone: [facility] 03-23-2023 09:34-0400 Systolic blood pressure 128 mm[Hg] Rene Castro MD Work Phone: [facility] 09-07-2022 11:31-0400 Body height 172.72 cm Sera Flower Work Phone: BG-Kmtnttrxeb-Rijlh daniel 250 DO Work Phone: 09-07-2022 11:31-0400 Body mass index (BMI) [Ratio] 36.8 kg/m2 Sera Flower Work Phone: VD-Zmrhglsycw-Makon daniel 250 DO Work Phone: 09-07-2022 11:31-0400 Body surface area Derived from formula 2.22 m2 Sera Flower Work Phone: OY-Clspyleupm-Exaii daniel 250 DO Work Phone: 09-07-2022 11:31-0400 Body weight 109.77 kg Sera Flower Work Phone: YE-Dfynpjhdpn-Gmedh daniel 250 DO Work Phone: 09-07-2022 11:31-0400 Diastolic blood pressure 68 mm[Hg] Sera Flower Work Phone: JC-Veeyrdoswu-Grqaa daniel 250 DO Work Phone: 09-07-2022 11:31-0400 Heart rate 76 /min Sera Flower Work Phone: CR-Kxgckpbtpy-Cpyxw daniel 250 DO Work Phone: 09-07-2022 11:31-0400 Systolic blood pressure 124 mm[Hg] Sera Flower Work Phone: SP-Zfbtmsvppn-Egnbc daniel 250 DO Work Phone: 09-05-2021 14:04-0400 Body height 172.72 cm Sera Flower Work Phone: [facility] 250 DO Work Phone: 09-05-2021 14:04-0400 Body mass index (BMI) [Ratio] 36.49 kg/m2 Sera Flower Work Phone: [facility] 250 DO Work Phone: 09-05-2021 14:04-0400 Body surface area Derived from formula 2.21 m2 Sera Flower Work Phone: [facility] 250 DO Work Phone: 09-05-2021 14:04-0400 Body weight 108.86 kg Sera Flower Work Phone: [facility] 250 DO Work Phone: 09-05-2021 14:04-0400 Diastolic blood pressure 82 mm[Hg] Sera Flower Work Phone: [facility] 250 DO Work Phone: 09-05-2021 14:04-0400 Heart rate 70 /min Sera Flower Work Phone: [facility] 250 DO Work Phone: 09-05-2021 14:04-0400 Systolic blood pressure 132 mm[Hg] Sera Flower Work Phone: [facility] 250 DO Work Phone: Encounters Encounter Date Encounter Type Care Provider Facility Start: 2024 End: 2024 ambulatory BENJY ALAS Not Available Start: 10-18-2023 End: 10-18-2023 Office outpatient visit 25 minutes Rene Castro MD Work Phone: [facility] Comment on above: 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 pectoris (Primary Dx); Essential hypertension; Mixed hyperlipidemia; Ischemic cardiomyopathy; Status post coronary artery stent placement; Class 2 obesity with body mass index (BMI) of 35.0 to 35.9 in adult, unspecified obesity type, unspecified whether serious comorbidity present; Former smoker Start: 10-18-2023 End: 10-18-2023 ambulatory RENE [facility] Ambulatory Start: 09-20-2023 End: 09-20-2023 ambulatory SERA FLOWER Not Available Start: 07-30-2023 End: 07-30-2023 ambulatory SERA FLOWER Not Available Start: 06-30-2023 End: 06-30-2023 ambulatory HOSEA SIFUENTES Not Available Start: 06-30-2023 End: 06-30-2023 Office outpatient visit 25 minutes Hosea Sifuentes DO Work Phone: [facility] Comment on above: Acute exacerbation o f chronic obstructive pulmonary disease (CMS/HCC) (Primary Dx) Start: 06-27-2023 End: 06-27-2023 ambulatory ESRA FLOWER Not Available Start: 06-14-2023 End: 06-14-2023 Emergency department patient visit Jasper Martinez Facility:[facility] Start: 06-14-2023 End: 06-14-2023 Emergency department patient visit MD Sera Flower Work Phone: [facility] Work Phone: Start: 06-14-2023 End: 06-14-2023 ambulatory RENZO WEAVER Not Available Start: 05-19-2023 End: 05-19-2023 ambulatory BRITTANY FIGUEROA Not Available Start: 03-23-2023 End: 03-23-2023 Office outpatient visit 25 minutes Rene Castro MD Work Phone: [facility] Comment on above: 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 pectoris; Essential hypertension; Mixed hyperlipidemia; Ischemic cardiomyopathy; Status post coronary artery stent placement; Class 2 obesity with body mass index (BMI) of 35.0 to 35.9 in adult, unspecified obesity type, unspecified whether serious comorbidity present Start: 03-23-2023 End: 03-23-2023 ambulatory [facility] Ambulatory Start: 02-06-2023 Other Sera Flower Work Phone: [facility] 250 DO Work Phone: Start: 02-05-2023 End: 02-05-[address] [facility] Facility:[facility] Start: 02-05-2023 End: 02-05-2023 ambulatory MD Sera Flower Work Phone: [facility] Work Phone: Start: 02-05-2023 End: 02-05-2023 Patient encounter procedure MD Sera Flower Work Phone: [facility]ro[facility] Work Phone: Start: 02-05-[address] Sera Flower Facility:[id number] Start: 01-30-2023 AUDIT Sera Flower Work Phone: [facility] 600 DO Work Phone: Start: 01-15-2023 Other Sera Flower Work Phone: [facility] 250 DO Work Phone: Start: 01-12-2023 Chart Update Sera Flower Work Phone: [facility] 250 DO Work Phone: Start: 01-04-[address] Sera Flower Facility:[id number] Start: 01-03-[address] Sera Flower Facility:[id number] Start: 11-14-2022 End: 11-14-2022 ambulatory DEANDRA BENDER Facility:[facility] Start: 11-14-2022 End: 11-14-2022 Patient encounter procedure Deandra Bender MD Work Phone: Ophthalmology Comment on above: Clonic hemifacial sp asm, right (Primary Dx) Start: 09-07-2022 Office outpatient vi sit 25 minutes Sera Flower Work Phone: [facility]Ditapyyeyk-Byvxnmjx 250 DO Work Phone: Start: 09-07-2022 ambulatory Rene Castro Facility : Start: 08-08-2022 End: 08-08-2022 ambulatory DEANDRA BENDER Facility:[facility] Start: 08-08-2022 End: 08-08-2022 Patient encounter procedure Deandra Bender MD Work Phone: Ophthalmology Comment on above: Clonic hemifacial sp asm, right (Primary Dx) Start: 06-21-2022 Telephone encounter Deandra Bender MD Work Phone: [facility] [place] Comment on above: Orders Start: 06-21-2022 End: 06-21-2022 ambulatory DEANDRA BENDER Facility:[facility] Start: 06-21-2022 End: 06-21-2022 Patient encounter procedure Deandra Bender MD Work Phone: Ophthalmology Comment on above: Clonic hemifacial sp asm, right (Primary Dx); Paralytic strabismus; Jada's syndrome Start: 05-01-2022 End: 05-01-2022 ambulatory MAU RANDLE Facility:[facility] Start: 05-01-2022 End: 05-01-2022 Patient encounter procedure Mau Randle OD Work Phone: Ophthalmology Comment on above: Eyelid myokymia (Velma maren Dx); Dry eye syndrome of both eyes; Hyperopia of both eyes with astigmatism and presbyopia Start: 09-05-2021 Office outpatient vi sit 25 minutes Sera Flower Work Phone: [facility] 250 DO Work Phone: Procedures Date Procedure [...] WALKER CASTRO Start: 03-23-2023 Lipid panel WALKER [facility] Start: 03-20-2023 Echocardiography [address] 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 [facility] [address] [facility] [address] [place] [address] [facility] Start: 03-20-2024 Echocardiography Echocardiogram [facility] Start: 01-27-2024 Influenza vaccination Influenza Vaccine (Season Ended) [facility] Start: 10-18-2023 End: 10-18-2023 Patient encounter procedure 10/18/2023 9:30 AM EDT Office Visit [place] [id number] [facility] [address] [place] [address] Rene Castro MD [address] [facility] [address] [place] [address] [facility] Start: 09-20-2023 End: 09-20-2023 Patient encounter procedure 09/20/2023 1:00 PM EDT Office Visit [facility] [address] [place] [id number] Sera Flower MD [address] [place] [address] [facility] Start: 03-23-2023 End: 03-23-2024 Alanine aminotransferase [Enzymatic activity/volume] in Serum or Plasma by With P-5'-P Alanine Aminotransferase Lab Routine Coronary artery disease involving eastern shoshone coronary artery of eastern shoshone heart without angina pectoris Essential hypertension Mixed hyperlipidemia Ischemic cardiomyopathy Status post coronary artery stent placement Class 2 obesity with body mass index (BMI) of 35.0 to 35.9 in adult, unspecified obesity type, unspecified whether serious comorbidity present Expected: 03/23/2023 (Approximate), Expires: 03/23/2024 [facility] Work Phone: Comment on above: Expected: 03/23/2023 (Approximate), Expi res: 03/23/2024 Start: 03-23-2023 End: 03-23-2024 Aspartate aminotransferase [Enzymatic activity/volume] in Serum or Plasma by With P-5'-P Aspartate Aminotransferase Lab Routine Coronary artery disease involving eastern shoshone coronary artery of eastern shoshone heart without angina pectoris Essential hypertension Mixed hyperlipidemia Ischemic cardiomyopathy Status post coronary artery stent placement Class 2 obesity with body mass index (BMI) of 35.0 to 35.9 in adult, unspecified obesity type, unspecified whether serious comorbidity present Expected: 03/23/2023 (Approximate), Expires: 03/23/2024 [facility] Work Phone: Comment on above: Expected: 03/23/2023 (Approximate), Expi res: 03/23/2024 Start: 03-23-2023 End: 03-23-2024 Basic metabolic 2000 panel - Serum or Plasma Basic Metabolic Panel Lab Routine Coronary artery disease involving eastern shoshone coronary artery of eastern shosh[place] heart without angina pectoris Essential hypertension Mixed hyperlipidemia Ischemic cardiomyopathy Status post coronary artery stent placement Class 2 obesity with body mass index (BMI) of 35.0 to 35.9 in adult, unspecified obesity type, unspecified whether serious comorbidity present Expected: 03/23/2023 (Approximate), Expires: 03/23/2024 [facility] Work Phone: Comment on above: Expected: 03/23/2023 (Approximate), Expi res: 03/23/2024 Start: 03-23-2023 End: 03-23-2024 CBC panel - Blood by Automated count CBC Lab Routine Coronary artery disease involving eastern shosh[place] coronary artery of eastern shosh[place] heart without angina pectoris Essential hypertension Mixed hyperlipidemia Ischemic cardiomyopathy Status post coronary artery stent placement Class 2 obesity with body mass index (BMI) of 35.0 to 35.9 in adult, unspecified obesity type, unspecified whether serious comorbidity present Expected: 03/23/2023 (Approximate), Expires: 03/23/2024 [facility] Service Area Work Phone: Comment on above: Expected: 03/23/2023 (Approximate), Expi res: 03/23/2024 Start: 03-23-2023 End: 03-23-2024 Lipid 1996 panel - Serum or Plasma Lipid Panel Lab Routine Coronary artery disease involving eastern shoshone coronary artery of eastern shoshone heart without angina pectoris Essential hypertension Mixed hyperlipidemia Ischemic cardiomyopathy Status post coronary artery stent placement Class 2 obesity with body mass index (BMI) of 35.0 to 35.9 in adult, unspecified obesity type, unspecified whether serious comorbidity present Expected: 03/23/2023 (Approximate), Expires: 03/23/2024 [facility] Work Phone: Comment on above: Expected: 03/23/2023 (Approximate), Expi res: 03/23/2024 Start: 03-15-2023 FUV, Provider: Rene Castro, Status: Pen, Time: 9:20 AM FUV, Provider: Rene Castro, Status: Pen, Time: 9:20 AM [facility] 250 DO Work Phone: Start: 01-26-2023 COVID-19 Vaccine ( season) COVID-19 Vaccine ( season) [facility] Start: 01-26-2023 Influenza vaccination [facility] Start: 09-07-2022 FUV, Provider: Rene Castro, Status: Pen, Time: 8:30 AM FUV, Provider: Rene Castro, Status: Pen, Time: 8:30 AM [facility] 250 DO Work Phone: Start: 05-28-2022 ADVANCE DIRECTIVE DISCUSSION ADVANCE DIRECTIVE DISCUSSION [facility] Start: 05-28-2022 DEPRESSION ASSESSMENT DEPRESSION ASSESSMENT [facility] Start: 01-26-2022 Influenza vaccination INFLUENZA (#1) [facility] Start: 05-28-2021 ADVANCE DIRECTIVE DISCUSSION ADVANCE DIRECTIVE DISCUSSION [facility] [facility] Start: 05-28-2021 DEPRESSION ASSESSMENT DEPRESSION ASSESSMENT [facility] Start: 2018 Abdominal aortic aneurysm screening Abdominal Aortic Aneurysm (AAA) Screening [facility] Start: 2018 PNEUMOCOCCAL: 65+ (1 - PCV) PNEUMOCOCCAL: 65+ (1 - PCV) [facility] Start: 02-15-2017 Zoster Vaccines (2 of 3) Zoster Vaccines (2 of 3) [facility] Start: 2013 RSV patients and/or patients aged 60+ years (1 - 1-dose 60+ series) RSV patients and/or patients aged 60+ years (1 - 1-dose 60+ series) [facility] Start: 2003 SHINGRIX VACCINE (1 of 2) SHINGRIX VACCINE (1 of 2) [facility] Start: 1998 COLOGUARD (FIT-DNA) COLOGUARD (FIT-DNA) [facility] Start: 1998 Colonoscopy COLONOSCOPY [facility] Start: 1998 COLORECTAL CANCER SCREENING COLORECTAL CANCER SCREENING [facility] Start: [address] COLONOGRAPHY [facility] Start: 1998 DIABETES SCREEN DIABETES SCREEN [facility] Start: 1998 FECAL OCCULT BLOOD FECAL OCCULT BLOOD [facility] Start: 1998 SIGMOIDOSCOPY SIGMOIDOSCOPY [facility] Start: 01-02-1988 LIPID SCREEN LIPID SCREEN [facility] Start: 01-02-1972 Urine microalbumin profile DTAP,TDAP,TD (1 - Tdap) [facility] Start: 1971 Diabetes mellitus screening Diabetes Screening [facility] Start: 1971 HEPATITIS C SCREENING HEPATITIS C SCREENING [facility] Start: 1971 Hepatitis C screening Hepatitis C Screening [facility] Start: 1953 COVID-19 VACCINE (#1) COVID-19 VACCINE (#1) [facility] Start: 1953 Creatinine measurement Creatinine Level [facility] Start: 1953 Lipid panel Lipid Panel [facility] Start: 1953 Medicare Annual Wellness Visit Medicare Annual Wellness Visit (AWV) [facility] Start: 1953 Potassium measurement Potassium Level [facility] Start: 1953 Screening for malignant neoplasm of colon [facility] End: 07-21-2023 Mri brain brain stem w/o w/contrast material MRI BRAIN WO/W IVCON Radiology Routine Paralytic strabismus 1 Occurrences starting 06/21/2022 until 07/21/2023 [facility] Work Phone: Comment on above: 1 Occurrences starting 06/21/2022 until 07/21/2023 End: 07-21-2023 Mri orbit face & neck w/o & w/contrast matrl MRI SOFT TISSUE NECK WO/W IVCON Radiology Routine 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 until 07/21/2023 [facility] Work Phone: Comment on above: 1 Occurrences starting 06/21/2022 until 07/21/2023 Patient Education COPD Exacerbat ion, Adult ED [facility] Work Phone: Patient referral [facility] Work Phone: [facility] Immunizations Immunization Date Immunization Notes Care Provider Fa cili 04-16-2019 Seasonal trivalent influenza vaccine, adjuvanted, preservative free Sera Flower Work Phone: [place] [address] DO Work Phone: 04-16-2019 influenza virus vacc ine, unspecified formulation Rene Castro MD Work Phone: [facility] Work Phone: 03-28-2019 influenza virus vacc ine, unspecified formulation Sera Flower Work Phone: [place] [address] DO Work Phone: 08-16-2018 influenza, seasonal, injectable, preservative free Sera Flower Work Phone: [place] [address] DO Work Phone: 08-16-2018 pneumococcal conjuga te vaccine, 13 valent Sera Flower Work Phone: [facility] [employer] DO Work Phone: 05-28-2018 pneumococcal polysaccharide vaccine, 23 valent Sera Flower Work Phone: [place] [address] DO Work Phone: 08-10-2017 tetanus toxoid, redu daniel diphtheria toxoid, and acellular pertussis vaccine, adsorbed Sera Flower Work Phone: [place] [address] DO Work Phone: 12-21-2016 zoster vaccine, live Sera Flower Work Phone: [place] [address] DO Work Phone: 09-30-2012 pneumococcal polysaccharide vaccine, 23 valent Sera Flower Work Phone: [place] [address] DO Work Phone: 09-30-2012 pneumococcal vaccine , unspecified formulation Hosea Sifuentes DO Work Phone: [facility] 05-28-2010 influenza virus vacc ine, unspecified formulation Rene Castro MD Work Phone: [facility] Work Phone: 03-28-2010 influenza, seasonal, injectable, preservative free Rene Castro MD Work Phone: [facility] Work Phone: 2007 TD(adult) unspecifie d formulation Hosea Sifuentes DO Work Phone: [facility] influenza virus vacc ine, unspecified formulation Sera Flower Work Phone: [place] [address] DO Work Phone: Comment on above: Mar 20102010 Payers Date Payer Category Payer Private Health Insurance HUMANA HUMANA HMO/POS [id number] 2023-Present [address] [address] [place] [address] [id number] 2023 Self-pay [id number] 2022 Department of [facility] e ( and others) [id number] 2022 [employer] [place] [employer] ( and others) [id number] 2022 Medicare [id number] 2021 [employer] [employer] ( and others) [id number] 2021 Unknown 2017 Medicare [id number] 2017 Medicare [id number] 1955 Unknown [id number] [id number]. 356 1953 Unknown [id number] 2.16.840.1.000864.3.579.2. 356 1953 Unknown [id number] 2.16.840.1.711523.3.579.2. 1068 1953 Unknown [id number] 2.16.840.1.207961.3.579.2. 1068 1953 Unknown [id number] 2.16.840.1.628220.3.579.2. 1259 1953 Unknown [id number] 2.16.840.1.258040.3.579.2. 1259 1953 Unknown [id number] 2.16.840.1.681411.3.579.2. 1259 1953 Unknown [id number] 2.16.840.1.365577.3.579.2. 1259 1953 Unknown [id number] 2.16.840.1.252547.3.579.2. 1259 1953 Unknown [id number] 2.16.840.1.005258.3.579.2. 1259 1953 Unknown [id number] 2.16.840.1.742177.3.579.2. 1259 1953 Unknown [id number] 2.16.840.1.837192.3.579.2. 1244 1953 Unknown [id number] 2.16.840.1.846703.3.579.2. 1244 [employer] ( and others) [id number] Unknown [id number] [id number]. 531 Unknown [id number] 2.16.840.1.343434.3.579.2. 531 Social History Date Type Detail Facility Start: 03-23-2023 End: 10-18-2023 No alcohol use No alcohol use [facility] 250 DO Work Phone: Comment on above: 5 CUPS OF COFFEE ANICETO LY; QUIT IN 1984; Start: 05-01-2022 End: 06-14-2023 Tobacco smoking status [facility] Never smoked tobacco [facility] Start: 05-01-2022 End: 10-18-2023 Tobacco use and exposure Smokeless tobacco non-user [facility] Start: 05-01-2022 End: 11-14-2022 Alcohol intake Ex-drinker (finding) [facility] Start: 1955 Sex Assigned At Not on file [facility] Start: 10-15-2020 End: 10-18-2023 Tobacco smoking status FLIS Ex-smoker (finding) [facility] Start: 1955 Sex Assigned At Male F [facility] End: 05-28-1992 History of tobacco use Current smoker [facility] Work Phone: End: 05-28-1992 History of tobacco use Cigarette Smoker [facility] Work Phone: Start: 03-23-2023 End: 10-18-2023 Alcohol intake Lifetime non-drinker (finding) [facility] Work Phone: Start: 03-23-2023 End: 10-18-2023 Tobacco use panel [facility] Work Phone: Start: 03-13-2023 End: 10-18-2023 Exposure to SARS-CoV-2 (event) Not sure [facility] Start: 03-14-2023 Alcohol Comment caffeine: coff ee 5-6 cups a day [facility] Start: 11-13-2022 Gender identity Identifies as male gender (finding) [facility] Clinical Notes 05-01-2022 to 10-18-2023 Rene Castro [...] emphasis on low-calorie diet Rene Castro MD, [facility] Review of Systems All other systems reviewed [...] , Rfl: omega-3 fatty acids-fish oil (One-Per-Day Baylis-3) 684-1,200 mg capsule, Take as directed, Disp: [...] 3 Assessment/Plan 1. Coronary artery disease involving eastern shoshone coronary artery of eastern shoshone heart without angina pectoris Follow Up In [...] discussion and plan. documented in this encounter [facility] Work Phone: 10-18-2023 Instructions Ana Cunningham [...] up 6 months documented in this encounter [facility] Work Phone: 06-30-2023 History of Presen [...] x 3 days documented in this encounter [facility] 03-23-2023 History of Presen t illness Narrative [...] emphasis on low-calorie diet Rene Castro MD, [facility] Review of Systems All other systems reviewed [...] , Rfl: omega-3 fatty acids-fish oil (One-Per-Day Baylis-3) 684-1,200 mg capsule, Take as directed, Disp: [...] Rfl: Assessment/Plan 1. Coronary artery disease involving eastern shoshone coronary artery of eastern shoshone heart without angina pectoris Follow Up In [...] Aminotransferase Alanine Aminotransferase documented in this encounter [facility] Work Phone: 03-23-2023 Instructions Millie Hoffmann [...] of your visit. documented in this encounter [facility] Work Phone: 11-14-2022 Note HNO ID: [id number] Author: Deandra Bender MD Service: ? Author [...] or facial palsy H/o Botox injections in [place]-->didn't help No h/o trauma H/o sinus surgery [...] can I get the FL-41 filter? Any [facility] [place] location, (with an optical shop), throughout [place], Email: [email or web address] [employer] in [place], [place], [facility] in [place], [place], [facility] in [place], [place], [facility] in [place], [place], [phone] [email or web address] Botulinum toxin 3 months, Botulinum toxin [...] Bender MD, November 14, 2022 10:00 AM. [facility] 11-14-2022 History of Presen t illness Narrative Here for botox Right eye just started twitching Tears as needed. -rofPatient still having twitching right eye and occasionally the left. Refresh tears four times a day. -rof A/P: Right hemifacial spasm x 2 years Patient doesn't remember h/o bells or facial palsy H/o Botox injections in [place]-->didn't help No h/o trauma H/o sinus surgery [...] can I get the FL-41 filter? Any [facility] [place] location, (with an optical shop), throughout [place], Email: [email or web address] [employer] in [place], [place], [facility] in [place], [place], [facility] in [place], [place], [employer] in [place], [place], [email or web address] Botulinum toxin 3 months, Botulinum toxin [...] 2022 10:00 AM. documented in this encounter [facility] 08-08-2022 Note HNO ID: [id number] Author: Deandra Bender MD Service: ? Author [...] Bender MD, August 08, 2022 3:05 PM. [facility] 08-08-2022 History of Presen t illness Narrative Patient still having twitching right eye and occasionally the left. Refresh tears four times a day. -rof A/P: Right hemifacial spasm x 2 years Patient doesn't remember h/o bells or facial palsy H/o Botox injections in [place]-->didn't help No h/o trauma H/o sinus surgery [...] 2022 3:05 PM. documented in this encounter [facility] 08-08-2022 Instructions Deandra Bender MD - [...] Recheck next visit documented in this encounter [facility] 06-21-2022 Miscellaneous Notes Notes and MRI orders faxed to [facility]. [facility] today. : 1955 Allergies: Codeine, Codeine-Guaifenesin, and Guaifenesin (home) [phone] (cell) Reason for call: Sasha F:[phone] Asking for the MRI orders and office notes to be faxed over to [facility]. Patient will be having them done there. Patient last appointment: Visit date not found The patients preferred pharmacy has been captured for this encounter? not asked Delores Mccollum documented in this encounter [facility] 06-21-2022 Note HNO ID: [id number] Author: Deandra Bender MD Service: ? Author Type: Physician Type: Progress Notes Filed: 06/21/2022 9:08 AM Note Text: Twitching right eye x two years. Both upper and lower lid. Trouble reading because of it. +tearing and burning. Refresh four times a day. -rof A/P: Right hemifacial spasm x 2 years Patient doesn't remember h/o bells or facial palsy H/o Botox injections in [place]-->didn't help No h/o trauma H/o sinus surgery [...] Bender MD, June 21, 2022 9:05 AM. [facility] 06-21-2022 Instructions Deandra Bender MD - 06/21/2022 [...] and get MRI documented in this encounter [facility] 06-21-2022 History of Presen t illness Narrative Twitching right eye x two years. Both upper and lower lid. Trouble reading because of it. +tearing and burning. Refresh four times a day. -rof A/P: Right hemifacial spasm x 2 years Patient doesn't remember h/o bells or facial palsy H/o Botox injections in [place]-->didn't help No h/o trauma H/o sinus surgery [...] 2022 9:05 AM. documented in this encounter [facility] 05-01-2022 Note HNO ID: [id number] Author: Mau Randle OD Service: ? Author Type: POCKET MAKER Type: Progress Notes Filed: 05/01/2022 9:22 AM [...] of its relevant components. 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 [facility] Diagnosis Clonic hemifacial spasm, right- Primary [facility]* Diagnosis Clonic hemifacial spasm, right- Primary documented in this encounter [facility] noteNo assessment information available[facility] Work Phone: Evaluation note* Diagnosis Coronary artery disease involving eastern shoshone coronary artery of eastern shoshone heart without angina pectoris Essential hypertension Unspecified essential hypertension Mixed hyperlipidemia Ischemic cardiomyopathy Other specified forms of chronic ischemic heart disease Status post coronary artery stent placement Postsurgical percutaneous transluminal coronary angioplasty status Class 2 obesity with body mass index (BMI) of 35.0 to 35.9 in adult, unspecified obesity type, unspecified whether serious comorbidity present documented in this encounter [facility] Work Phone: Evaluation note* Diagnosis Acute exacerbation of chronic obstructive pulmonary disease (CMS/HCC)- Primary Obstructive chronic bronchitis with exacerbation [facility] Diagnosis Coronary artery disease involving eastern shoshone coronary artery of eastern shoshone heart without angina pectoris- Primary Essential hypertension [...] hazards to health documented in this encounter [facility] Work Phone: Hospital Discharge instructions Additional Instructions If your symptoms return/worsen or you develop any further concerns or symptoms please see your doctor or return to the emergency department immediately.[facility] Work Phone: Reason for referral (narrative)* Consultation (Routine) - Authorized Specialty Diagnoses / Procedures Referred By Contac t Referred To Contact Cardiology Diagnoses Coronary artery disease involving eastern shoshone coronary artery of eastern shoshone heart without angina pectoris Essential hypertension Mixed hyperlipidemia Ischemic cardiomyopathy Status post coronary artery stent placement Class 2 obesity with body mass index (BMI) of 35.0 to 35.9 in adult, unspecified obesity type, unspecified whether serious comorbidity present Procedures Follow Up In Cardiology Rene Castro MD [facility] [address] [place] [address] Rene Castro MD [address] [place] [address] [address] [place] [address] [place] [address] Referral ID Status Reason Start Date Expiration Date V isits Requested Visits Authorized [id number] Authorized 03/23/2023 03/22/2024 1 1 [facility] Work Phone: Recryp for referral (narrative)* Consultation (Routine) - Authorized Specialty Diagnoses / Procedures Referred By Contac t Referred To Contact Cardiology Diagnoses Coronary artery disease involving eastern shoshone coronary artery of eastern shoshone heart without angina pectoris Procedures Follow Up In Cardiology Rene Castro MD [address] [place] [address] Rene Castro MD [address] [place] [address] [place] [address] Referral ID Status Reason Start Date Expiration Date V isits Requested Visits Authorized [id number] Authorized 10/18/2023 10/17/2024 1 1 [facility] Work Phone: Chief Complaint [...] infarction with no ischemia. EF in the [id number]. He remains compensated as for ischemic cardiomyopathy. [...] on low-calorie diet * Rene Castro MD, [facility] Family History No Family History Records FoundUnknown [...] ORBIT FACE & NECK W/O & W/CONTRAST Deandra Troncoso MD [address] [place] [address] Mr Imaging Referral ID Status Reason Start Date Expiration Date Visits Requested Visits Authorized [id number] Pending Review Auto-Generat ed Referral 06/21/2022 07/21/2023 1 1 Specialty Diagnoses / Procedures Referred By Contac t Referred To Contact MR IMAGING Diagnoses Paralytic strabismus Procedures MRI BRAIN WO/W IVCON MRI BRAIN BRAIN STEM W/O W/CONTRAST MATERIAL Deandra Bender MD [address] [place] [address] Mr Imaging Referral ID Status Reason Start Date Expiration Date Visits Requested Visits Authorized [id number] Pending Review Auto-Generat ed Referral 06/21/2022 07/21/2023 [...] or prosecute any alcohol or drug abuse patient.[facility] the event this information is protected by the Federal Confidentiality of Alcohol and Drug Abuse Patient Records regulations: The Federal rules restrict any use of the information to criminally investigate or prosecute any alcohol or drug abuse patient.[facility] the event this information is protected by the Federal Confidentiality of Alcohol and Drug Abuse Patient Records regulations: The Federal rules restrict any use of the information to criminally investigate or prosecute any alcohol or drug abuse patient.[facility] the event this information is protected by the Federal Confidentiality of Alcohol and Drug Abuse Patient Records regulations: The Federal rules restrict any use of the information to criminally investigate or prosecute any alcohol or drug abuse patient.[facility] the event this information is protected by the Federal Confidentiality of Alcohol and Drug Abuse Patient Records regulations: The Federal rules restrict any use of the information to criminally investigate or prosecute any alcohol or drug abuse patient.[facility] Reason for Visit (unrecogniz ed section [...] , up to 100 units Procedures BOTOX [id number] [place] [address] [place] [address] Deandra Bender MD [address] [place] [address] Referral ID Status Reason Start Date Expiration Date V isits Requested Visits Authorized [id number] Authorized 11/14/2022 05/27/2023 99 99 Reason Comments Follow-up 6 months Reason Comments Follow-up 6m Specialty Diagnoses / Procedures Referred By Contac t Referred To Contact Cardiology Diagnoses Coronary artery disease involving eastern shoshone coronary artery of eastern shoshone heart without angina pectoris Essential hypertension Mixed hyperlipidemia Ischemic cardiomyopathy Status post coronary artery stent placement Class 2 obesity with body mass index (BMI) of 35.0 to 35.9 in adult, unspecified obesity type, unspecified whether serious comorbidity present Procedures Follow Up In Cardiology Rene Castro MD [address] [place] [address] [address], [address] [address] Rene Castro MD [address] [place] [address] 2, [address] [address] Referral ID Status Reason Start Date Expiration Date V isits Requested Visits Authorized [id number] Authorized 03/23/2023 03/22/2024 1 1 (unrecognized sect ion and content) No Status Records FoundNo Status Records FoundNo Status Records FoundNo Status Records FoundNo Status Records FoundNo Status Records FoundNo Status Records FoundNo Status Records Found INFORMATION SOURCE (unrecogn ized section and content) DATE CREATED AUTHOR 07/16/2022 [facility] DATE CREATED AUTHOR AUTHOR'S ORGANIZ ATION 09/09/2022 [employer] DATE CREATED AUTHOR AUTHOR'S ORGANIZ ATION 11/14/2022 [facility] DATE CREATED AUTHOR AUTHOR'S ORGANIZ ATION 02/12/2023 [facility] DATE CREATED AUTHOR AUTHOR'S ORGANIZ ATION 02/28/2023 [facility] DATE CREATED AUTHOR AUTHOR'S ORGANIZ ATION 06/25/2023 [facility] DATE CREATED AUTHOR AUTHOR'S ORGANIZ ATION 01/03/2024 [facility]ists EPIC DATE CREATED AUTHOR AUTHOR'S ORGANIZ ATION 01/04/2024 [facility] [employer] Teams (unrecognized sec tion and content) Team Status: Active Member Role Status Dates Sera Flower MD Primary Care Provider Active Team Status: Inactive Member Role Status Dates Sera Flower MD Primary Care Provider, Other Provider Active Rene Castro MD Attending Provider Active Principal Architect Relationship Specialty Start Date End Date Sera Flower MD [address] [place] [address] PCP - General 02/16/21 Team Status: Inactive Member Role Status Dates Sera Flower MD Primary Care Provider Active St art: June 14, 2023 End: June 14, 2023 Jasper Martinez DO Emergency Provider Active Start: June 14, 2023 End: June 14, 2023 Principal Architect Relationship Specialty Start Date End Date Sera Flower MD [address] [place] [address] PCP - [employer] 1/1/23 Sera Flower MD [address] [place] [address] PCP - General Internal Medicine 10/03/22 Principal Architect Relationship Specialty Start Date End Date Sera Flower MD [address] [place] [id number] PCP - General 02/16/21 Goals (unrecognized section [...] BE BASED ON THE PRIMARY CLINICAL RECORDS. [facility] [employer] [facility]. provides no warranty or guarantee of the accuracy or completeness of information in this document.
[2024-02-02 10:36] VITALS: BP 144/99; PULSE 66; TEMP 36.5; O2SAT 97; BMI 35.1
--- NOTE | 2024-02-02 10:41 | XR_ITS ---
The [address] [address] Patient Name: DEMARCUS CALDERON MRN: [id number] date: 1955 Sex: M Assigned Patient Location: ER Current Patient Location: ER Accession/Order Number: [id number] Exam Date: 02/02/2024 11:00 Report Date: 02/02/2024 12:36 At the request of: CELIA ROJAS Procedure: XR chest 2V EXAM: XR chest 2V HISTORY: productive cough and congestion COMPARISON: CT chest, 820 22,024. TECHNIQUE: Frontal and lateral chest x-rays. FINDINGS: Cardiac size, mediastinal contour and pulmonary vascularity are within normal limits. Mild chronic interstitial changes are noted, and were better evaluated on preceding high-resolution chest CT scan. No pulmonary edema, acute infiltrate, pleural effusion or pneumothorax is seen. There is mild pulmonary hyperinflation with some flattening of the diaphragms. The bony thorax is intact. XR/XR chest 2V IMPRESSION: Nonacute chest. Please reference prior report regarding additional findings. Electronically authenticated by: MELISSA MAC Date: 02/02/2024 12:36
[2024-02-02 11:06] LABS: Influenza Virus A Antigen Negative; Influenza Virus B Antigen Negative; Internal Control Within Normal Limits; SARS-CoV-2 Ag NEGATIVE (NEGATIVE)
--- NOTE | 2024-02-02 11:07 | ED_ITS ---
HPI - URI/Sore Throat General Chief Complaint: Upper Respiratory Infection Stated Complaint: Upper Respiratory Infection Time Seen by Provider: 02/02/24 11:04 Source: patient Limitations: no limitations History of Present Illness HPI Narrative: The patient have a history of COPD had to quit smoking almost more than 10 years ago is coming to us after having shortness of breath for the last few days he mentioned that he did contact his primary care doctor and he was provided with doxycycline prescription with no improvement. The patient has been using his inhaler and complaining of shortness of breath There is also cough productive of sputum and no fever no chills no chest pain no abdominal pain, Related Data Home Medications ?Medication ?Instructions ?Recorded ?Confirmed carvedilol 6.25 mg tablet 6.25 mg PO Q12H 07/22/23 12/24/23 losartan 50 mg tablet 50 mg PO Q24H 07/22/23 12/24/23 omeprazole 20 mg capsule,delayed 20 mg PO Q24H 07/22/23 12/24/23 release tamsulosin 0.4 mg capsule 0.4 mg PO Q24H 07/22/23 12/24/23 Previous Rx's ?Medication ?Instructions ?Recorded albuterol sulfate 90 mcg/actuation 2 inh inhalation Q6H PRN shortness 12/25/23 aerosol inhaler (Ventolin HFA) of breath or wheezing #6.7 grams furosemide 40 mg tablet (Lasix) 40 mg PO DAILY #30 tabs 12/25/23 ipratropium 0.5 mg-albuterol 3 mg 3 ml inhalation Q6H PRN shortness 02/02/24 (2.5 mg base)/3 mL nebulization of breath #90 mL soln prednisone 20 mg tablet 40 mg (2 x 20 mg) PO DAILY 5 days 02/02/24 #10 tabs Allergies Allergy/AdvReac Type Severity Reaction Status Date / Time codine AdvReac Intermediate Uncoded 07/22/23 13:05 Review of Systems ROS Status of ROS 10 or more systems reviewed and unremark able except as noted in history and below [facility] Medical History (Updated 02/02/24 @ 12:49 by Susana Ling MD) Congestive heart failure ?I50.9 - Heart failure, unspecified (ICD-10) BPH (benign prostatic hyperplasia) ?N40.0 - Benign prostatic hyperplasia without lower urinary tract symptoms (ICD-10) CAD (coronary artery disease) ?I25.10 - Atherosclerotic heart disease of [place] coronary artery without angina pectoris (ICD-10) GERD (gastroesophageal reflux disease) ?K21.9 - Gastro-esophageal reflux disease without esophagitis (ICD-10) Hypertension ?I10 - Essential (primary) hypertension (ICD-10) COPD (chronic obstructive pulmonary disease) ?J44.9 - Chronic obstructive pulmonary disease, unspecified (ICD-10) Bronchitis ?J40 - Bronchitis, not specified as acute or chronic (ICD-10) Emphysema of lung ?J43.9 - Emphysema, unspecified (ICD-10) Heart attack ?I21.9 - Acute myocardial infarction, unspecified (ICD-10) COPD exacerbation ?J44.1 - Chronic obstructive pulmonary disease with (acute) exacerbation (ICD-10) COVID-19 ?U07.1 - COVID-19 (ICD-10) Surgical History (Updated 12/24/23 @ 07:31 by Celina Ambrose) H/O sinus surgery ?Z98.890 - Other specified postprocedural states (ICD-10) H/O shoulder surgery ?Z98.890 - Other specified postprocedural states (ICD-10) H/O heart artery stent ?Z95.5 - Presence of coronary angioplasty implant and graft (ICD-10) Family History (Updated 12/24/23 @ 07:24 by Celina Ambrose) Aunt Family history of cancer Mother Family history of diabetes mellitus Brother Family history of hypertension Father Family history of hypertension Social History (Updated 12/24/23 @ 07:25 by Celina Ambrose) Within the past year, how often did you have a drink containing alcohol: never Score interpretation: A score less than 4 is consistent with normal alcohol consumption. 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 Known occupational exposures/hazards: No Highest level of school completed/degree received: GED or equivalent Are you now , , , , never or living with a partner: In a typical week, how many times do you talk on the telephone with family, friends, or neighbors: 3 or more times per week How often do you get together with friends or relatives: 3 or more times per week How often do you attend faith or latter-day services: never Little interest or pleasure in doing things: not at all Feeling down, depressed, or hopeless: not at all Feel stressed/tense/nervous/anxious/difficulty sleeping: not at all Do you think of yourself as: straight/heterosexual Gender Identity: male Exam Narrative Exam Narrative: Nurses notes and vital signs reviewed and patient is not hypoxic. General: Well-appearing and in no apparent distress. Skin: Warm, dry, no pallor noted. No rash. Head: Normocephalic, atraumatic. Neck: Supple, non-tender. Eye: Pupils are equal, round and EOMI. No scleral icterus. Ears, Nose, Mouth, and Throat: TM are clear, no nasal mucosal hypertrophy. Oral mucosa is moist, no posterior oropharynx erythema, uvula is mid-line Cardiovascular: Regular Rate and Rhythm without murmur, gallop or rub. Respiratory: No accessory muscle use or respiratory distress. Lungs there is bilateral distant airway breathing sound with mild wheezing Chest Wall: no tenderness Back: No midline thoracic or lumbar vertebral tenderness. No CVA tenderness Musculoskeletal: normal ROM, no calf or popliteal tenderness, no lower ex tremity edema/swelling GI: Abdomen is soft, non-distended. Normal bowel sounds. No masses appreciated. No tenderness to palpation. No rebound, guarding, or rigidity noted. Neurological: A&O x4. No cranial nerve dysfunction observed. No truncal ataxia. Moves all extremities. Sensation intact. Psychiatric: Cooperative and interactive. Normal mood and affect. Constitutional Vital Signs, click to edit/add: Last Vital Signs Temp 97.7 F 02/02/24 10:36 Pulse 88 02/02/24 12:53 Resp 18 02/02/24 12:53 BP 144/99 H 02/02/24 10:36 Pulse Ox 98 02/02/24 12:53 O2 Del Method Room Air 02/02/24 10:36 Course Vital Signs Vital signs: Vital Signs Temperature 97.7 F 02/02/24 10:36 Pulse Rate 66 02/02/24 10:36 Respiratory Rate 22 H 02/02/24 10:36 Blood Pressure 144/99 H 02/02/24 10:36 Pulse Oximetry 97 02/02/24 10:36 Oxygen Delivery Method Room Air 02/02/24 10:36 Temperature 97.7 F 02/02/24 10:36 Pulse Rate 88 02/02/24 12:53 Respiratory Rate 18 02/02/24 12:53 Blood Pressure 144/99 H 02/02/24 10:36 Pulse Oximetry 98 02/02/24 12:53 Oxygen Delivery Method Room Air 02/02/24 10:36 MDM - URI/Sore Throat MDM Narrative Medical decision making narrative: Patient chest x-ray showed no acute pathology CBC and chemistry showed no acute pathology The patient was treated with Solu-Medrol 1 dose The patient was feeling much better after initial treatment he was discharged home with DuoNeb medication in addition to prednisone The patient was instructed not to use his albuterol with DuoNeb The patient is to follow up with primary care physician in next 2-3 days or to return to the emergency department should any of the signs or symptoms worsen or new symptoms develop. The patient agrees with the following Diagnosis and Treatment plan and the patient will be discharged home. Lab Data Labs: Lab Results 02/02/24 02/02/24 Range/Units 10:40 11:15 WBC 7.1 (4.0-11.0) 10^3/uL RBC 5.01 (4.70-6.10) 10^6/uL Hgb 14.6 (14.0-18.0) g/dL Hct 42.4 (42.0-54.0) % MCV 84.6 (80.0-94.0) fL MCH 29.1 (25.9-34.0) pg MCHC 34.4 (29.9-35.2) g/dL RDW 13.9 (11.0-15.0) % Plt Count 185 (150-450) 10^3/uL MPV 10.7 (9.5-13.5) fL Neut % (Auto) 57.8 (43.0-75.0) % Lymph % (Auto) 22.6 (20.5-60.0) % [place] % (Auto) 13.0 H (1.7-12.0) % Eos % (Auto) 5.5 (0.9-7.0) % Baso % (Auto) 0.8 (0.2-2.0) % Neut # (Auto) 4.1 (1.4-6.5) 10^3/uL Lymph # (Auto) 1.6 (1.2-3.8) 10^3/uL [place] # (Auto) 0.9 H (0.3-0.8) 10^3/uL Eos # (Auto) 0.4 (0.0-0.7) 10^3/uL Baso # (Auto) 0.1 (0.0-0.1) 10^3/uL Abs Immat Gran (auto) 0.02 (0.00-0.03) 10^3/uL Imm/Tot Granulo (auto) 0.3 (0.0-0.5) % Sodium 134 L (136-145) mmol/L Potassium 4.0 (3.5-5.1) mmol/L Chloride 99 (98-107) mmol/L Carbon Dioxide 27.7 (21.0-32.0) mmol/L Anion Gap 11.3 BUN 14.0 (7.0-18.0) mg/dL Creatinine 0.93 (0.70-1.30) mg/dL Est GFR ( Amer) >60 (>=60) Est GFR (Non-Af Amer) >60 (>=60) BUN/Creatinine Ratio 15.1 Glucose 104 (74-106) mg/dL Calcium 8.9 (8.5-10.1) mg/dL Total Bilirubin 0.6 (0.2-1.0) mg/dL AST 32 (15-37) U/L ALT 46 (16-63) U/L Alkaline Phosphatase 78 (46-116) U/L Total Protein 6.8 (6.4-8.2) g/dL Albumin 3.7 (3.4-5.0) g/dL Globulin 3.1 g/dL Albumin/Globulin Ratio 1.2 Influenza Type A Ag Negative Influenza Type B Ag Negative SARS-CoV-2 Ag (CV2AG) Negative (NEGATIVE) Discharge Plan Discharge Chief Complaint: Upper Respiratory Infection Clinical Impression: COPD exacerbation Patient Disposition: Home, Self-Care Time of Disposition Decision: 12:49 Condition: Good Prescriptions / Home Meds: New ipratropium-albuterol 0.5 mg-3 mg(2.5 mg base)/3 mL solution for nebulization 3 ml inhalation Q6H PRN (Reason: shortness of breath) Qty: 90 0RF prednisone 20 mg tablet 40 mg PO DAILY 5 Days Qty: 10 0RF Discontinued prednisone 20 mg tablet 20 mg PO BID 5 Days Qty: 10 0RF No Action furosemide [Lasix] 40 mg tablet 40 mg PO DAILY Qty: 30 0RF albuterol sulfate [Ventolin HFA] 90 mcg/actuation HFA aerosol inhaler 2 inh inhalation Q6H PRN (Reason: shortness of breath or wheezing) Qty: 6.7 0RF tamsulosin 0.4 mg capsule 0.4 mg PO Q24H carvedilol 6.25 mg tablet 6.25 mg PO Q12H losartan 50 mg tablet 50 mg PO Q24H omeprazole 20 mg capsule,delayed release(DR/EC) 20 mg PO Q24H Print Language: Wolof Instructions: COPD (Chronic Obstructive Pulmonary Disease) (DC) Referrals: SERA FLOWER [Primary Care Provider] - 1 week Discharge Date/Time: 02/02/24 12:54
[2024-02-02 11:27] LABS: Basophils Absolute Auto 0.1 10^3/uL (0.0-0.1); Basophils Percent Auto 0.8 % (0.2-2.0); Eosinophils Absolute Auto 0.4 10^3/uL (0.0-0.7); Eosinophils Percent Auto 5.5 % (0.9-7.0); Hematocrit 42.4 % (42.0-54.0); Hemoglobin 14.6 g/dL (14.0-18.0); Immature Granulocytes Abs Auto 0.02 10^3/uL (0.00-0.03); Immature Granulocytes Pct Auto 0.3 % (0.0-0.5); Lymphocytes Absolute Auto 1.6 10^3/uL (1.2-3.8); Lymphocytes Percent Auto 22.6 % (20.5-60.0); Mean Corpuscular HGB Conc 34.4 g/dL (29.9-35.2); Mean Corpuscular Hemoglobin 29.1 pg (25.9-34.0); Mean Corpuscular Volume 84.6 fL (80.0-94.0); Mean Platelet Volume 10.7 fL (9.5-13.5); Monocytes Absolute Auto 0.9 10^3/uL (0.3-0.8); Neutrophils Absolute Auto 4.1 10^3/uL (1.4-6.5); Neutrophils Percent Auto 57.8 % (43.0-75.0); Platelet Count 185 10^3/uL (150-450); Red Blood Count 5.01 10^6/uL (4.70-6.10); Red Cell Distribution Width 13.9 % (11.0-15.0); White Blood Count 7.1 10^3/uL (4.0-11.0)
[2024-02-02 11:54] LABS: Alanine Aminotransferase 46 U/L (16-63); Albumin Globulin Ratio 1.2; Albumin Level 3.7 g/dL (3.4-5.0); Alkaline Phosphatase 78 U/L (46-116); Anion Gap 11.3; Aspartate Amino Transferase 32 U/L (15-37); BUN Creatinine Ratio 15.1; Bilirubin Total 0.6 mg/dL (0.2-1.0); Calcium 8.9 mg/dL (8.5-10.1); Carbon Dioxide 27.7 mmol/L (21.0-32.0); Chloride 99 mmol/L (98-107); Estimated GFR (African America >60 (>=60); Estimated GFR (Non-African Ame >60 (>=60); Globulin 3.1 g/dL; Glucose 104 mg/dL (74-106); Sodium 134 mmol/L (136-145); Total Protein 6.8 g/dL (6.4-8.2)
[2024-02-02] MEDS: METHYLPREDNISOLONE SOD SUCC PF 125 MG/2 ML VIAL IVP (11:55)
[2024-02-02] MEDS: IPRATROPIUM/ALBUTEROL SULFATE 3 ML AMPUL.NEB IH (12:12)
[2024-02-02 12:53] VITALS: PULSE 88; O2SAT 98
== END 2024-02-02 12:54 | disposition home or self-care (01) ==
PROVIDERS: Emergency Provider Emergency Medicine; PCP Internal Medicine
DX: J44.1 Chronic obstructive pulmonary disease with (acute) exacerbation (principal); Z87.891 Personal history of nicotine dependence; Z20.822 Contact with and (suspected) exposure to COVID-19
CPT/HCPCS: 36415; 71046; 80053; 85025; 87804; 87811; 94640; 96374; 99284; J2919

== ENCOUNTER 2024-02-15 15:26 | Observation (INO) | payer MEDICARE, OTHER, SELFPAY ==
[2024-02-15 15:31] VITALS: BP 125/69; PULSE 81; TEMP 37.4; O2SAT 95; BMI 35.2
--- NOTE | 2024-02-15 15:47 | XR_ITS ---
The [address] [address] Patient Name: DEMARCUS CALDERON MRN: [id number] date: 1955 Sex: M Assigned Patient Location: ER Current Patient Location: ER Accession/Order Number: [id number] Exam Date: 02/15/2024 16:02 Report Date: 02/15/2024 16:27 At the request of: INDRA BERNARD Procedure: XR chest 1V EXAM: XR chest 1V HISTORY: . SOB . COMPARISON: 12/24/2023 TECHNIQUE: Single view of the chest. FINDINGS: Heart and vascularity are unremarkable. There is hyperexpansion of lungs and flattening in hemidiaphragms indicating COPD. Lungs are free of focal infiltrates. EKG leads overlie the chest. XR/XR chest 1V Impression: No acute heart or lung disease identified. Electronically authenticated by: REZA CLAY Date: 02/15/2024 16:27
--- NOTE | 2024-02-15 15:47 | ECG_ITS ---
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
--- NOTE | 2024-02-15 15:52 | ED_ITS ---
HPI HPI - General Adult General Chief complaint: Weakness Stated complaint: Dizziness, Shaking Time Seen by Provider: 02/15/24 15:36 Source: patient Mode of arrival: walk-in History of Present Illness HPI narrative: 69-year-old male presents to the emergency department for being shaky and weak. This started earlier today when he was driving towards home in [place]. They had to pull off into the rest stop and his drove the rest way home and brought him here to the hospital. He has not had a known fever but has had a slight cough. No vomiting or diarrhea or skin rash. His is not ill. He does not complain of dysuria or hematuria or productive cough. Related Data Home Medications ?Medication ?Instructions ?Recorded ?Confirmed carvedilol 6.25 mg tablet 6.25 mg PO Q12H 07/22/23 02/15/24 losartan 50 mg tablet 50 mg PO Q24H 07/22/23 02/15/24 omeprazole 20 mg capsule,delayed 20 mg PO Q24H 07/22/23 02/15/24 release tamsulosin 0.4 mg capsule 0.4 mg PO Q24H 07/22/23 02/15/24 Previous Rx's ?Medication ?Instructions ?Recorded albuterol sulfate 90 mcg/actuation 2 inh inhalation Q6H PRN shortness 12/25/23 aerosol inhaler (Ventolin HFA) of breath or wheezing #6.7 grams furosemide 40 mg tablet (Lasix) 40 mg PO DAILY #30 tabs 12/25/23 ipratropium 0.5 mg-albuterol 3 mg 3 ml inhalation Q6H PRN shortness 02/02/24 (2.5 mg base)/3 mL nebulization of breath #90 mL soln Allergies Allergy/AdvReac Type Severity Reaction Status Date / Time codine AdvReac Intermediate Uncoded 07/22/23 13:05 Opioid HPI Opioid Management Most Recent Opioid Data: Last Pain Scale 1 07/24/23 13:00 Last ORT Total Score 0 12/24/23 06:51 Last ORT Risk Category Low Risk 12/24/23 06:51 Review of Systems ROS Narrative A ten point review of systems is negative except as noted above. PFSH PFS Medical History (Updated 02/15/24 @ 17:35 by Huseyin Parmar MD) Congestive heart failure ?I50.9 - Heart failure, unspecified (ICD-10) BPH (benign prostatic hyperplasia) ?N40.0 - Benign prostatic hyperplasia without lower urinary tract symptoms (ICD-10) CAD (coronary artery disease) ?I25.10 - Atherosclerotic heart disease of [place] coronary artery without angina pectoris (ICD-10) GERD (gastroesophageal reflux disease) ?K21.9 - Gastro-esophageal reflux disease without esophagitis (ICD-10) Hypertension ?I10 - Essential (primary) hypertension (ICD-10) COPD (chronic obstructive pulmonary disease) ?J44.9 - Chronic obstructive pulmonary disease, unspecified (ICD-10) Bronchitis ?J40 - Bronchitis, not specified as acute or chronic (ICD-10) Emphysema of lung ?J43.9 - Emphysema, unspecified (ICD-10) Heart attack ?I21.9 - Acute myocardial infarction, unspecified (ICD-10) COPD exacerbation ?J44.1 - Chronic obstructive pulmonary disease with (acute) exacerbation (ICD-10) COVID-19 ?U07.1 - COVID-19 (ICD-10) Surgical History (Updated 12/24/23 @ 07:31 by Celina Ambrose) H/O sinus surgery ?Z98.890 - Other specified postprocedural states (ICD-10) H/O shoulder surgery ?Z98.890 - Other specified postprocedural states (ICD-10) H/O heart artery stent ?Z95.5 - Presence of coronary angioplasty implant and graft (ICD-10) Family History (Updated 12/24/23 @ 07:24 by Celina Ambrose) Aunt Family history of cancer Mother Family history of diabetes mellitus Brother Family history of hypertension Father Family history of hypertension Social History (Updated 12/24/23 @ 07:25 by Celina Ambrose) Within the past year, how often did you have a drink containing alcohol: never Score interpretation: A score less than 4 is consistent with normal alcohol consumption. 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 Known occupational exposures/hazards: No Highest level of school completed/degree received: GED or equivalent Are you now , , , , never or living with a partner: In a typical week, how many times do you talk on the telephone with family, friends, or neighbors: 3 or more times per week How often do you get together with friends or relatives: 3 or more times per week How often do you attend rastafari or hoahaoism services: never Little interest or pleasure in doing things: not at all Feeling down, depressed, or hopeless: not at all Feel stressed/tense/nervous/anxious/difficulty sleeping: not at all Do you think of yourself as: straight/heterosexual Gender Identity: male Exam Narrative Exam Narrative: Nurses note and vital signs reviewed and patient is not hypoxic. General: The patient appears in no acute respiratory distress. He is standing beside the bed when I walk into the room, giving a urine specimen into a urinal with his 's assistance. Skin: Warm, dry, no pallor noted. There is no rash noted. Head: Normocephalic, atraumatic Eye: Normal conjunctiva, no drainage Ears, Nose, Mouth, and Throat: oral mucosa is moist. Nares patent. Cardiovascular: Regular Rate and Rhythm Respiratory: Patient is in no distress, no accessory muscle use, lungs are clear to auscultation, no wheezing, rales or rhonchi Back: non-tender GI: Soft obese and nontender : No erythema or rash present in the perineal area Musculoskeletal: The patient has no evidence of calf tenderness, no pitting edema, symmetrical pulses noted bilaterally Neurological: A&O x4, normal speech; he is mildly tremorous Psychiatric: Cooperative Constitutional Vital Signs, click to edit/add: Last Vital Signs Temp 99.3 F 02/15/24 15:31 Pulse 93 H 02/15/24 16:30 Resp 23 H 02/15/24 16:30 BP 125/69 02/15/24 15:31 Pulse Ox 96 02/15/24 16:30 O2 Del Method Room Air 02/15/24 15:31 Course Vital Signs Vital signs: Vital Signs Temperature 99.3 F 02/15/24 15:31 Pulse Rate 81 02/15/24 15:31 Respiratory Rate 22 H 02/15/24 15:31 Blood Pressure 125/69 02/15/24 15:31 Pulse Oximetry 95 02/15/24 15:31 Oxygen Delivery Method Room Air 02/15/24 15:31 Temperature 99.3 F 02/15/24 15:31 Pulse Rate 93 H 02/15/24 16:30 Respiratory Rate 23 H 02/15/24 16:30 Blood Pressure 125/69 02/15/24 15:31 Pulse Oximetry 96 02/15/24 16:30 Oxygen Delivery Method Room Air 02/15/24 15:31 Medical Decision Making MDM Narrative Medical decision making narrative: The WBC is quite elevated but the source is uncertain. He does not seem to have a UTI and his chest x-ray is negative. Blood cultures were obtained as well as a urine culture. He has no abdominal pain or tenderness. Repeat examination at 5:30 PM showed his abdomen to be soft and completely nontender. The patient will be admitted for observation and the findings were discussed thoroughly with the patient and his . Differential Diagnosis Differential Diagnosis: UTI, pneumonia, viral illness Lab Data Lab results reviewed: Yes I reviewed the patient's lab results Labs: Lab Results 02/15/24 02/15/24 Range/Units 15:56 16:07 WBC 25.8 H (4.0-11.0) 10^3/uL RBC 4.80 (4.70-6.10) 10^6/uL Hgb 14.2 (14.0-18.0) g/dL Hct 40.4 L (42.0-54.0) % MCV 84.2 (80.0-94.0) fL MCH 29.6 (25.9-34.0) pg MCHC 35.1 (29.9-35.2) g/dL RDW 14.1 (11.0-15.0) % Plt Count 146 L (150-450) 10^3/uL MPV 10.5 (9.5-13.5) fL Seg Neuts % (Manual) 84.0 H (43.0-75.0) Band Neutrophils % 4.0 (0-5) % Lymphocytes % (Manual) 3.0 L (20.5-60.0) % Monocytes % (Manual) 9.0 (1.7-12.0) % Eosinophils % (Manual) 0.0 L (0.9-7.0) % Basophils % (Manual) 0.0 L (0.2-2.0) % Neutrophils # (Manual) 21.67 H (1.4-6.5) 10^3/uL Band Neutrophils # 1.0 H (0.0-0.3) 10^3/uL Lymphocytes # (Manual) 0.77 L (1.20-3.80) 10^3/uL Monocytes # (Manual) 2.32 H (0.30-0.80) 10^3/uL Eosinophils # (Manual) 0.00 (0.00-0.70) 10^3/uL Basophils # (Manual) 0.00 (0.00-0.10) 10^3/uL Sodium 129 L (136-145) mmol/L Potassium 3.7 (3.5-5.1) mmol/L Chloride 95 L (98-107) mmol/L Carbon Dioxide 24.8 (21.0-32.0) mmol/L Anion Gap 12.9 BUN 11.0 (7.0-18.0) mg/dL Creatinine 1.02 (0.70-1.30) mg/dL Est GFR ( Amer) >60 (>=60) Est GFR (Non-Af Amer) >60 (>=60) BUN/Creatinine Ratio 10.8 Glucose 121 H (74-106) mg/dL Calcium 8.4 L (8.5-10.1) mg/dL Urine Color Lt. yellow (YELLOW) Urine Clarity Clear (CLEAR) Urine pH 6.5 (5.0-9.0) Ur Specific [place] 1.010 (1.005-1.025) Urine Protein Negative (NEG/TRACE) mg/dL Urine Glucose (UA) Negative (NEGATIVE) mg/dL Urine Ketones Negative (NEGATIVE) mg/dL Urine Occult Blood Negative (NEGATIVE) Urine Nitrite Negative (NEGATIVE) Urine Bilirubin Negative (NEGATIVE) Urine Urobilinogen 0.2 (0.2-1.0) EU/dL Ur Leukocyte Esterase Small A (NEGATIVE) Urine RBC 0-2 (0-2) #/HPF Urine WBC 2-5 A (NONE SEEN) #/HPF Ur Squamous Epith Cells Rare (NONE/RARE) #/LPF Urine Crystals None seen (None Seen) #/HPF Urine Bacteria Trace A (NONE SEEN) #/HPF Urine Casts None seen (NONE SEEN) #/LPF Urine Mucus Trace A (NONE SEEN) Ur Culture Indicated? Yes SARS-CoV-2 Ag (CV2AG) Negative (NEGATIVE) Imaging Data Chest x-ray: Radiologist's impression: ITS Impressions Chest X-Ray 02/15/24 15:47 Impression: No acute heart or lung disease identified. Electronically authenticated by: REZA CLAY Date: 02/15/2024 16:27 Discharge Plan Discharge Chief Complaint: Weakness Clinical Impression: Generalized weakness, Leukocytosis Patient Disposition: Admitted as Observation Time of Disposition Decision: 17:35 Condition: Good Prescriptions / Home Meds: No Action furosemide [Lasix] 40 mg tablet 40 mg PO DAILY Qty: 30 0RF albuterol sulfate [Ventolin HFA] 90 mcg/actuation HFA aerosol inhaler 2 inh inhalation Q6H PRN (Reason: shortness of breath or wheezing) Qty: 6.7 0RF tamsulosin 0.4 mg capsule 0.4 mg PO Q24H carvedilol 6.25 mg tablet 6.25 mg PO Q12H losartan 50 mg tablet 50 mg PO Q24H omeprazole 20 mg capsule,delayed release(DR/EC) 20 mg PO Q24H ipratropium-albuterol 0.5 mg-3 mg(2.5 mg base)/3 mL solution for nebulization 3 ml inhalation Q6H PRN (Reason: shortness of breath) Qty: 90 0RF Print Language: Divehi Referrals: SERA FLOWER [Primary Care Provider] - 1 week
--- OUTSIDE RECORDS SUMMARY | 2024-02-15 15:55 | XMS_ITS | CCD ---
Author Organization [facility] Care Team Providers Care Patient Flow Coordinator Name Role Phone Sera Flower Unavailable Unavailable Unavailable Unavailable Primary Care Provider Unavailabl e Unavailable Unavailable DEANDRA BENDER Attending Unavailable DEANDRA BENDER Referring Unavailable MAU RANDLE Attending Unavailable DEANDRA BENDER Attending Unavailable DEANDRA BENDER Attending Unavailable DEANDRA BENDER Referring Unavailable MD Sera Flower Primary Care Provider [phone] MD Sera Flower Other Provider MD Rene Castro Attending Provider [phone] Dr. Sera Flower Primary Care Unavailab Rene Nobles Referring Unavailable Anjel, Dr. Sera Frost Primary Care Unavailab Rene Nobles Attending Unavailable Dr. Sera Flower Primary Care Unavailab Rene Nobles Attending Unavailable Anjel, Dr. Sera Frost Primary Care Unavailab Rene Nobles Attending Unavailable Sera Flower MD Primary Care Provider MD Sera Flower Primary Care Provider DO Jasper Martinez Emergency Provider [phone] Jasper Martinez Admitting Unavailable Jasper Martinez Attending [...] 6 Vomiting, Unknown, Nausea And Vomiting, Other [facility] (6 sources) Codeine / guaiFENesin; Translations: [CODEINE-GUAIFEN ESIN] Drug Allergy 1 Other: See Comments [facility] (6 sources) guaiFENesin; Translations: [GUAIFENESIN] Drug Allergy 3 Other: See Comments [facility] (1 source) Codeine Drug Allergy 4 [facility] Repository (2 sources) guaiFENesin Drug Allergy 3 Other [facility] Medications Current Medications Medication Drug Class(es) Dates Sig (Normalized) Sig (Original) albuterol 0.83 mg/ml inhalation solution (14 sources) beta2-Adrenergic Agonist Start: 06-21-2023 albuterol (2.5 MG/3ML) 0.083% nebulizer solution Indications: Chronic obstructive pulmonary disease, unspecified COPD type ([facility]) Take 3 mL (2.5 mg) [...] 12:00am Start: 01-17-2022 take 1 capsule by [facility] three times daily for cough benzonatate (TESSALON PERLE) 100 mg capsule take 1 capsule by mouth three times a day if needed for cough SWALLOW WHOLE 0 01/17/2022 Active Comment on above: take 1 capsule by [facility] three times a day if [...] t ongue. omega-3 fatty acids-fish oil (One-Per-Day Oto-3) 684-1,200 mg capsule (2 sources) omega-3 fatty acids-fish oil (One-Per-Day Oto-3) 684-1,200 mg capsule Take as directed Active omega-3 fatty ac ids-fish oil (One-Per-Day Oto-3) 684-1,200 mg capsule Take as directed 0 [...] mg tablet Indications: Coronary artery disease involving kaibab coronary artery of kaibab heart without angina pectoris , Mixed hyperlipidemia [...] mg by inhalation every eight hours Ipratropium Sturgeon Discontinued 0.5 MG INHALATION Q8H April 26, [...] 0 Refills: 0 Ordered: 07-Sep-2022 DO Active Oto 3 CAPS (2 sources) Oto 3 CAPS MARLEN E DIRECTED. Quantity: 0 [...] [Coronary atherosclerosis of unspecified type of vessel, kaibab or graft] Onset: 01-03-2023 03-23-2023 Chronic Disorders [...] aPTT Coag (PPP) [Time] 30.2 s 25.1-36.5 [facility] Comment on above: A hematocrit value g reater than 55% may lead to inaccurate results in coagulation testing. Patients having hematocrit values >55% require a special collection tube for coagulation studies. Please contact the laboratory at [phone] for redraw instructions. Alanine aminotransferase [En zymatic activity/volume] in Serum or PlasmaOrdered By: Jasper Martinez on 06-14-2023 ALT [Catalytic activity/Vol] 37 U/L 7-52 [facility] Albumin [Mass/volume] in Ser um or Plasma by Bromocresol green (BCG) dye binding methoOrdered By: Jasper Martinez on 06-14-2023 Albumin BCG dye [Mass/Vol] 4.1 g/dL 3.5-5.7 [facility] Alkaline phosphatase [Enzyma tic activity/volume] in Serum or PlasmaOrdered By: Japser Martinez on 06-14-2023 ALP [Catalytic activity/Vol] 59 U/L 34-104 [facility] Aspartate aminotransferase [ Enzymatic activity/volume] in Serum or PlasmaOrdered By: Jasper Martinez on 06-14-2023 AST [Catalytic activity/Vol] 29 U/L 13-39 [facility] B-Type Natriuretic Peptideon 06-14-2023 Natriuretic peptide B (Bld) [Mass/Vol] 67.0 pg/mL Normal 5-100 [facility] Comment on above: Result Comment: PERF ORMED BY: [place] [address] PATHOLOGIST ENVIRONMENTAL EMERGENCIES ASSISTANT RAPHAEL RANGEL M.D. Performed By: #### C OVID19 FLU RSV, CEPHEID NEG #### [address] Basophils Auto (Bld) [#/Vol] Ordered By: Jasper Martinez on 06-14-2023 Basophils (Bld) [#/Vol] 0.0 10*3/uL 0.0-0.2 [facility] Basophils/100 WBC Auto (Bld) Ordered By: Jasper Martinez on 06-14-2023 Basophils/100 WBC (Bld) 0.6 % . [facility] Bilirubin.total [Mass/volume ] in Serum or PlasmaOrdered By: Jasper Martinez on 06-14-2023 Bilirubin [Mass/Vol] 0.4 mg/dL 0.3-1.0 [facility] COVID CepheidOrdered By: Asya Martinez on 06-14-2023 SARS-CoV-2 (COVID-19) Ab IA Ql Negative Negative [facility] Comment on above: This is a duplicate Cepheid Xpert Xpress CoV-2/Flu/RSV Plus RNA by RT-PCR result to be used for statistical tracking purpose only. SARS-CoV-2 (COVID-19) RNA VERONA+probe Ql (Unsp spec) [facility] COVID-19 / Flu A/B / RSV [...] or Cepheid Disclaimer revoked sooner. PERFORMED BY: [place] [address] PATHOLOGIST ENVIRONMENTAL EMERGENCIES ASSISTANT RAPHAEL RANGEL M.D. Normal [facility] Comment on above: Performed By: #### C OVID19 FLU RSV, CEPHEID NEG #### [place] [id number] [facility] Calcium [Mass/volume] in Ser um or PlasmaOrdered By: Jasper Martinez on 06-14-2023 Calcium [Mass/Vol] 9.0 mg/dL 8.6-10.3 [facility] Carbon dioxide, total [Moles /volume] in Serum or PlasmaOrdered By: Jasper Martinez on 06-14-2023 CO2 [Moles/Vol] 23.4 mmol/L 21.0-31.0 [facility] Cepheid COVID PCR Negativeon 06-14-2023 SARS-CoV-2 (COVID-19) RNA VERONA+probe Ql (Unsp spec) Negative Normal Negative [facility] Comment on above: Result Comment: This is a duplicate Cepheid Xpert Xpress CoV-2/Flu/RSV Plus RNA by RT-PCR result to be used for statistical tracking purpose only. PERFORMED BY: [address] [address] PATHOLOGIST ENVIRONMENTAL EMERGENCIES ASSISTANT RAPHAEL RANGEL M.D. Performed By: #### C OVID19 FLU RSV, CEPHEID NEG #### [facility] [address] Chloride [Moles/volume] in S taylor or PlasmaOrdered By: Jasper Martinez on 06-14-2023 Chloride [Moles/Vol] 105 mmol/L 98-107 [facility] Complete Blood Count Auto Di ffon 06-14-2023 Basophils (Bld) [#/Vol] 0.0 10*3/uL Normal 0.0-0.2 [facility] Comment on above: Result Comment: PERF ORMED BY: [place] [address] PATHOLOGIST ENVIRONMENTAL EMERGENCIES ASSISTANT RAPHAEL RANGEL M.D. Performed By: #### B AGENCY SERVICE COORDINATOR, CK, MG, CBC, HS TROP, PTT, PT, CMP #### [address] Basophils/100 WBC (Bld) 0.6 % Normal . [facility] Comment on above: Performed By: #### B AGENCY SERVICE COORDINATOR, CK, MG, CBC, HS TROP, PTT, PT, CMP #### [address] Eosinophils (Bld) [#/Vol] 0.8 10*3/uL High 0.0-0.45 [facility] Comment on above: Performed By: #### B AGENCY SERVICE COORDINATOR, CK, MG, CBC, HS TROP, PTT, PT, CMP #### [address] Eosinophils/100 WBC (Bld) 9.6 % Normal . [facility] Comment on above: Performed By: #### B AGENCY SERVICE COORDINATOR, CK, MG, CBC, HS TROP, PTT, PT, CMP #### [address] Erythrocyte distribution width (RBC) [Ratio] 14.4 % Normal 12.0-14.8 [facility] Comment on above: Performed By: #### B AGENCY SERVICE COORDINATOR, CK, MG, CBC, HS TROP, PTT, PT, CMP #### [address] Hematocrit (Bld) [Volume fraction] 40.8 % Normal 38.8-50.0 [facility] Comment on above: Performed By: #### B AGENCY SERVICE COORDINATOR, CK, MG, CBC, HS TROP, PTT, PT, CMP #### [address] Hemoglobin (Bld) [Mass/Vol] 14.3 g/dL Normal 13.0-17.0 [facility] Comment on above: Performed By: #### B AGENCY SERVICE COORDINATOR, CK, MG, CBC, HS TROP, PTT, PT, CMP #### [address] Lymphocytes (Bld) [#/Vol] 1.5 10*3/uL Normal 1.00-4.8 [facility] Comment on above: Performed By: #### B AGENCY SERVICE COORDINATOR, CK, MG, CBC, HS TROP, PTT, PT, CMP #### [address] Lymphocytes/100 WBC (Bld) 18.5 % Normal . [facility] Comment on above: Performed By: #### B AGENCY SERVICE COORDINATOR, CK, MG, CBC, HS TROP, PTT, PT, CMP #### [address] MCH (RBC) [Entitic mass] 30.1 pg Normal 27.5-35.2 [facility] Comment on above: Performed By: #### B AGENCY SERVICE COORDINATOR, CK, MG, CBC, HS TROP, PTT, PT, CMP #### [address] MCV (RBC) [Entitic vol] 86.2 fL Normal 83.5-101 [facility] Comment on above: Performed By: #### B AGENCY SERVICE COORDINATOR, CK, MG, CBC, HS TROP, PTT, PT, CMP #### [address] Mean Corpuscular HGB Conc 34.9 g/dL Normal 32.5-35.6 [facility] Comment on above: Performed By: #### B AGENCY SERVICE COORDINATOR, CK, MG, CBC, HS TROP, PTT, PT, CMP #### [address] Monocytes (Bld) [#/Vol] 0.8 10*3/uL Normal 0.0-0.8 [facility] Comment on above: Performed By: #### B AGENCY SERVICE COORDINATOR, CK, MG, CBC, HS TROP, PTT, PT, CMP #### [address] Monocytes/100 WBC (Bld) 16.39 % Normal 0.00-20.00 [facility] Comment on above: Performed By: #### B AGENCY SERVICE COORDINATOR, CK, MG, CBC, HS TROP, PTT, PT, CMP #### [address] Monocytes/100 WBC (Bld) 10.1 % Normal . [facility] Comment on above: Performed By: #### B AGENCY SERVICE COORDINATOR, CK, MG, CBC, HS TROP, PTT, PT, CMP #### [address] Neutrophils (Bld) [#/Vol] 4.9 10*3/uL Normal 1.8-7.7 [facility] Comment on above: Performed By: #### B AGENCY SERVICE COORDINATOR, CK, MG, CBC, HS TROP, PTT, PT, CMP #### [address] Neutrophils/100 WBC (Bld) 61.2 % Normal . [facility] Comment on above: Performed By: #### B AGENCY SERVICE COORDINATOR, CK, MG, CBC, HS TROP, PTT, PT, CMP #### [address] NRBC% 0.1 /100{WBC} Normal 0-0.5 [facility] Comment on above: Performed By: #### B AGENCY SERVICE COORDINATOR, CK, MG, CBC, HS TROP, PTT, PT, CMP #### [address] Platelet mean volume (Bld) [Entitic vol] 8.4 fL Normal 6.6-10.1 [facility] Comment on above: Performed By: #### B AGENCY SERVICE COORDINATOR, CK, MG, CBC, HS TROP, PTT, PT, CMP #### [facility] [address] Platelets (Bld) [#/Vol] 181 10*3/uL Normal 150-450 [facility] Comment on above: Performed By: #### B AGENCY SERVICE COORDINATOR, CK, MG, CBC, HS TROP, PTT, PT, CMP #### [facility] [address] RBC (Bld) [#/Vol] 4.74 10*6/uL Normal 3.90-5.60 [facility] Comment on above: Performed By: #### B AGENCY SERVICE COORDINATOR, CK, MG, CBC, HS TROP, PTT, PT, CMP #### [address] WBC (Bld) [#/Vol] 8.1 10*3/uL Normal 4.1-10.5 [facility] Comment on above: Performed By: #### B AGENCY SERVICE COORDINATOR, CK, MG, CBC, HS TROP, PTT, PT, CMP #### [facility] [address] Comprehensive Metabolic Pane maria esther 06-14-2023 Albumin [Mass/Vol] 4.1 g/dL Normal 3.5-5.7 [facility] Comment on above: Performed By: #### B AGENCY SERVICE COORDINATOR, CK, MG, CBC, HS TROP, PTT, PT, CMP #### [facility] [address] Albumin/Globulin [Mass ratio] 1.6 {ratio} Normal [facility] Comment on above: Performed By: #### B AGENCY SERVICE COORDINATOR, CK, MG, CBC, HS TROP, PTT, PT, CMP #### [address] ALP [Catalytic activity/Vol] 59 U/L Normal 34-104 [facility] Comment on above: Performed By: #### B AGENCY SERVICE COORDINATOR, CK, MG, CBC, HS TROP, PTT, PT, CMP #### [place] [address] ALT [Catalytic activity/Vol] 37 U/L Normal 7-52 [facility] Comment on above: Performed By: #### B AGENCY SERVICE COORDINATOR, CK, MG, CBC, HS TROP, PTT, PT, CMP #### [address] Anion gap [Moles/Vol] 11.5 mmol/L Normal 6.0-15.0 [facility] Comment on above: Performed By: #### B AGENCY SERVICE COORDINATOR, CK, MG, CBC, HS TROP, PTT, PT, CMP #### [address] AST [Catalytic activity/Vol] 29 U/L Normal 13-39 [facility] Comment on above: Performed By: #### B AGENCY SERVICE COORDINATOR, CK, MG, CBC, HS TROP, PTT, PT, CMP #### [address] Bilirubin [Mass/Vol] 0.4 mg/dL Normal 0.3-1.0 [facility] Comment on above: Performed By: #### B AGENCY SERVICE COORDINATOR, CK, MG, CBC, HS TROP, PTT, PT, CMP #### [address] Calcium [Mass/Vol] 9.0 mg/dL Normal 8.6-10.3 [facility] Comment on above: Performed By: #### B AGENCY SERVICE COORDINATOR, CK, MG, CBC, HS TROP, PTT, PT, CMP #### [address] Chloride [Moles/Vol] 105 mmol/L Normal 98-107 [facility] Comment on above: Performed By: #### B AGENCY SERVICE COORDINATOR, CK, MG, CBC, HS TROP, PTT, PT, CMP #### [address] CO2 [Moles/Vol] 23.4 mmol/L Normal 21.0-31.0 [facility] Comment on above: Performed By: #### B AGENCY SERVICE COORDINATOR, CK, MG, CBC, HS TROP, PTT, PT, CMP #### [facility] [address] Creatinine [Mass/Vol] 0.89 mg/dL Normal 0.70-1.[address] [facility] Comment on above: Performed By: #### B AGENCY SERVICE COORDINATOR, CK, MG, CBC, HS TROP, PTT, PT, CMP #### [facility] [address] Creatinine Clr Calc Pharmacy 92.42 [facility] Comment on above: Performed By: #### B AGENCY SERVICE COORDINATOR, CK, MG, CBC, HS TROP, PTT, PT, CMP #### [facility] [address] GFR/1.73 sq M.predicted MDRD (S/P/Bld) [Vol rate/Area] mL/min/{1.73_m2} [facility] Comment on above: Performed By: #### B AGENCY SERVICE COORDINATOR, CK, MG, CBC, HS TROP, PTT, PT, CMP #### [address] Globulin (S) [Mass/Vol] 2.5 g/dL [facility] Comment on above: Performed By: #### B AGENCY SERVICE COORDINATOR, CK, MG, CBC, HS TROP, PTT, PT, CMP #### [address] Glucose [Mass/Vol] 144 mg/dL High 70-100 [facility] Comment on above: Result Comment: [facility] Glucose Reference Range is dependent on time and content of last meal. Glucose of more than 200 mg/dL in a nonstressed, ambulatory subject supports the diagnosis of Diabetes Mellitus. ADA recommended reference range Performed By: #### B AGENCY SERVICE COORDINATOR, CK, MG, CBC, HS TROP, PTT, PT, CMP #### [address] Potassium [Moles/Vol] 3.9 mmol/L Normal 3.5-5.[address] [facility] Comment on above: Performed By: #### B AGENCY SERVICE COORDINATOR, CK, MG, CBC, HS TROP, PTT, PT, CMP #### [address] [place] [address] [place] Protein [Mass/Vol] 6.6 g/dL Normal 6.4-8.9 [facility] Comment on above: Performed By: #### B AGENCY SERVICE COORDINATOR, CK, MG, CBC, HS TROP, PTT, PT, CMP #### [facility] [address] Sodium [Moles/Vol] 136 mmol/L Normal 136-145 [facility] Comment on above: Performed By: #### B AGENCY SERVICE COORDINATOR, CK, MG, CBC, HS TROP, PTT, PT, CMP #### [facility] [address] Urea nitrogen [Mass/Vol] 12 mg/dL Normal 7-25 [facility] Comment on above: Performed By: #### B AGENCY SERVICE COORDINATOR, CK, MG, CBC, HS TROP, PTT, PT, CMP #### [facility] [address] Creatine Kinaseon 06-14-2023 CK [Catalytic activity/Vol] 185 U/L Normal 30-223 [facility] Comment on above: Performed By: #### C OVID19 FLU RSV, CEPHEID NEG #### [address] Creatine kinase [Enzymatic a ctivity/volume] in Serum or PlasmaOrdered By: Jasper Martinez on 06-14-2023 CK [Catalytic activity/Vol] 185 U/L 30-223 [facility] Creatinine [Mass/volume] in Serum or PlasmaOrdered By: Jasper Martinez on 06-14-2023 Creatinine [Mass/Vol] 0.89 mg/dL 0.70-1.[address] [facility] ECG 12 lead ECGon 06-14-2023 ECG 12 lead ECG [facility] [place] [address] [place] [address] Electrocardiograph Report Signed Patient: Demarcus Panchal MR#: [id number] : 1955 Acct:[id number] Age/Sex: 68 / M ADM Date: 06/14/23 Loc: ER Room: Type: [place] [facility] Attending Dr: Ordering Provider: Jasper Martinez [...] sinus rhythm Confirmed by Jasper MARTINEZ DO ([id number]) on 06/14/2023 2:25:14 PM Referred By: Electronically Signed By:Jasper MARTINEZ DO Transcribed By: MUS Signed By Jasper Martinez DO 0 06/14/23 1425 Normal [facility] Eosinophils Auto (Bld) [#/Vo l]Ordered By: Jasper Martinez on 06-14-2023 Eosinophils (Bld) [#/Vol] 0.8 10*3/uL 0.0-0.45 [facility] Eosinophils/100 WBC Auto (Bl d)Ordered By: Jasper Martinez on 06-14-2023 Eosinophils/100 WBC (Bld) 9.6 % . [facility] Erythrocyte distribution wid th Auto (RBC) [Ratio]Ordered By: Jasper Martinez on 06-14-2023 Erythrocyte distribution width (RBC) [Ratio] 14.4 % 12.0-14.8 [facility] Globulin Calc (S) [Mass/Vol] Ordered By: Jasper Martinez on 06-14-2023 Globulin (S) [Mass/Vol] 2.5 g/dL [facility] Glucose [Mass/volume] in Ser um or PlasmaOrdered By: Jasper Martinez on 06-14-2023 Glucose [Mass/Vol] 144 mg/dL 70-100 [facility] Comment on above: ADA recommended refe rence rangeRandom Glucose Reference Range is dependent on time and content of last meal. Glucose of more than 200 mg/dL in a nonstressed, ambulatory subject supports the diagnosis of Diabetes Mellitus. Hematocrit Auto (Bld) [Volum e fraction]Ordered By: Jasper Martinez on 06-14-2023 Hematocrit (Bld) [Volume fraction] 40.8 % 38.8-50.0 [facility] Hemoglobin [Mass/volume] in BloodOrdered By: Jasper Martinez on 06-14-2023 Hemoglobin (Bld) [Mass/Vol] 14.3 g/dL 13.0-17.0 [facility] INR in Platelet poor plasma by Coagulation assayOrdered By: Jasper Martinez on 06-14-2023 INR Coag (PPP) [Relative time] 1.1 {INR} [facility] Comment on above: INR Therapeutic Rang [...] RBC Auto (Bld) [#/Vol] 8.1 10*3/uL 4.1-10.5 [facility] Lymphocytes Auto (Bld) [#/Vo l]Ordered By: Jasper Martinez on 06-14-2023 Lymphocytes (Bld) [#/Vol] 1.5 10*3/uL 1.00-4.8 [facility] Lymphocytes/100 WBC Auto (Bl d)Ordered By: Jasper Martinez on 06-14-2023 Lymphocytes/100 WBC (Bld) 18.5 % . [facility] MCH Auto (RBC) [Entitic mass ]Ordered By: Jasper Martinez on 06-14-2023 MCH (RBC) [Entitic mass] 30.1 pg 27.5-35.2 [facility] MCHC Auto (RBC) [Mass/Vol]Or dered By: Jasper Martinez on 06-14-2023 MCHC (RBC) [Mass/Vol] 34.9 g/dL 32.5-35.[address] [facility] MCV Auto (RBC) [Entitic vol] Ordered By: Jasper Martinez on 06-14-2023 MCV (RBC) [Entitic vol] 86.2 fL 83.5-101 [facility] Magnesiumon 06-14-2023 Magnesium [Mass/Vol] 2.0 mg/dL Normal 1.9-2.7 [facility] Comment on above: Result Comment: PERF ORMED BY: [facility] [address] [place] [address] PATHOLOGIST ENVIRONMENTAL EMERGENCIES ASSISTANT RAPHAEL RANGEL M.D. Performed By: #### B AGENCY SERVICE COORDINATOR, CK, MG, CBC, HS TROP, PTT, PT, CMP #### [facility] [address] [place] [id number] [facility] Magnesium [Mass/volume] in S taylor or PlasmaOrdered By: Jasper Martinez on 06-14-2023 Magnesium [Mass/Vol] 2.0 mg/dL 1.9-2.7 [facility] Monocyte distribution width [Entitic volume] in Blood by AutomatedOrdered By: Jasper Martinez on 06-14-2023 Monocyte distribution width Auto (Bld) [Entitic vol] 16.39 % 0.00-20.00 [facility] Monocytes Auto (Bld) [#/Vol] Ordered By: Jasper Martinez on 06-14-2023 Monocytes (Bld) [#/Vol] 0.8 10*3/uL 0.0-0.8 [facility] Monocytes/100 WBC Auto (Bld) Ordered By: Jasper Martinez on 06-14-2023 Monocytes/100 WBC (Bld) 10.1 % . [facility] Natriuretic peptide B [Mass/ Vol]Ordered By: Jasper Martinez on 06-14-2023 Natriuretic peptide B (Bld) [Mass/Vol] 67.0 pg/mL 5-100 [facility] Neutrophils Auto (Bld) [#/Vo l]Ordered By: Jasper Martinez on 06-14-2023 Neutrophils (Bld) [#/Vol] 4.9 10*3/uL 1.8-7.7 [facility] Neutrophils/100 WBC Auto (Bl d)Ordered By: Jasper Martinez on 06-14-2023 Neutrophils/100 WBC (Bld) 61.2 % . [facility] No Panel InformationOrdered By: Jasper Martinez on 06-14-2023 Estimated GFR (CKD-EPI) > 60.0 mL/Min [facility] Creatinine Clearance (Chem 92.42 [facility] Nucleated erythrocytes [Pres ence] in Blood by Automated countOrdered By: Jasper Martinez on 06-14-2023 Nucleated RBC Auto Ql (Bld) 0.1 /100{WBC} 0-0.5 [facility] Partial Thromboplastin Timeo n 06-14-2023 aPTT Coag (Bld) [Time] 30.2 s Normal 25.1-36.5 [facility] Comment on above: Result Comment: A he matocrit value greater than 55% may lead to inaccurate results in coagulation testing. Patients having hematocrit values >55% require a special collection tube for coagulation studies. Please contact the laboratory at [phone] for redraw instructions. PERFORMED BY: [place] [address] PATHOLOGIST ENVIRONMENTAL EMERGENCIES ASSISTANT RAPHAEL RANGEL M.D. Performed By: #### C OVID19 FLU RSV, CEPHEID NEG #### [address] Platelet mean volume Auto (B ld) [Entitic vol]Ordered By: Jasper Martinez on 06-14-2023 Platelet mean volume (Bld) [Entitic vol] 8.4 fL 6.6-10.1 [facility] Platelets Auto (Bld) [#/Vol] Ordered By: Jasper Martinez on 06-14-2023 Platelets (Bld) [#/Vol] 181 10*3/uL 150-450 [facility] Potassium [Moles/volume] in Serum or PlasmaOrdered By: Jasper Martinez on 06-14-2023 Potassium [Moles/Vol] 3.9 mmol/L 3.5-5.[address] [facility] Protein [Mass/volume] in Ser um or PlasmaOrdered By: Jasper Martinez on 06-14-2023 Protein [Mass/Vol] 6.6 g/dL 6.4-8.9 [facility] Prothrombin Time INRon 06-14 INR Coag (PPP) [Relative time] 1.1 {INR} Normal [facility] Comment on above: Result Comment: INR [...] 3 - 4.5 Performed By: #### B AGENCY SERVICE COORDINATOR, CK, MG, CBC, HS TROP, PTT, PT, CMP #### [facility] [address] [place] [id number] [facility] PT Coag (PPP) [Time] 12.1 s Normal 9.0-12.9 [facility] Comment on above: Result Comment: A he matocrit value greater than 55% may lead to inaccurate results in coagulation testing. Patients having hematocrit values >55% require a special collection tube for coagulation studies. Please contact the laboratory at [phone] for redraw instructions. Performed By: #### B AGENCY SERVICE COORDINATOR, CK, MG, CBC, HS TROP, PTT, PT, CMP #### [facility] [address] [place] [id number] [facility] Prothrombin time (PT)Ordered By: Jasper Martinez on 06-14-2023 PT Coag (PPP) [Time] 12.1 s 9.0-12.9 [facility] Comment on above: A hematocrit value g reater than 55% may lead to inaccurate results in coagulation testing. Patients having hematocrit values >55% require a special collection tube for coagulation studies. Please contact the laboratory at [phone] for redraw instructions. RBC Auto (Bld) [#/Vol]Ordere d By: Jasper Martinez on 06-14-2023 RBC (Bld) [#/Vol] 4.74 10*6/uL 3.90-5.60 [facility] Serum or plasma albumin/glob ulin mass ratioOrdered By: Jasper Martinez on 06-14-2023 Albumin/Globulin [Mass ratio] 1.6 {ratio} [facility] Serum or plasma anion gap de terminationOrdered By: Jasper Martinez on 06-14-2023 Anion gap [Moles/Vol] 11.5 mmol/L 6.0-15.0 [facility] Sodium [Moles/volume] in Ser um or PlasmaOrdered By: Jasper Martinez on 06-14-2023 Sodium [Moles/Vol] 136 mmol/L 136-145 [facility] Troponin I High Sensitivityo n 06-14-2023 Troponin I High Sensitivity 26.8 pg/mL High 0.0-20.0 [facility] [facility] Comment on above: Result Comment: PERF ORMED BY: [place] [address] PATHOLOGIST ENVIRONMENTAL EMERGENCIES ASSISTANT RAPHAEL RANGEL M.D. Performed By: #### C OVID19 FLU RSV, CEPHEID NEG #### [facility] [address] Troponin I.cardiac [Mass/vol ume] in Serum or Plasma by Detection limit <= 0.01 ng/Ordered By: Jasper Martinez on 06-14-2023 Troponin I.cardiac DL <= 0.01 ng/mL [Mass/Vol] 26.8 pg/mL 0.0-20.0 [facility] Urea nitrogen [Mass/volume] in Serum or PlasmaOrdered By: Jasper Martinez on 06-14-2023 Urea nitrogen [Mass/Vol] 12 mg/dL 7-25 [facility] WBC Auto (Bld) [#/Vol]Ordere d By: Jasper Martinez on 06-14-2023 WBC (Bld) [#/Vol] 8.1 10*3/uL 4.1-10.5 [facility] XR chest 2V*on 06-14-2023 XR chest 2V* [facility] [address] [place] [address] XRay Report Signed Patient: Demarcus Panchal MR#: [id number] 652 : 1955 Acct:[id number] Age/Sex: 68 / M ADM Date: 06/14/23 Loc: ER Room: Type: [place] [facility] Attending Dr: Copies to: Jasper Martinez DO Ordering Provider: Jasepr Martinez DO Date of Service: 06/14/23 XR/XR [...] Salvador Nguyễn M.D.06/14/2023 1:59 PM Dictation Location: [facility]- Transcribed By: [facility] 06/14/23 1359 Dictated By: Salvador Nguyễn DO 06/14/23 1354 Signed By: 06/14/23 1359 Normal [facility] Cardiac echo study Procedure on 03-20-2023 Ordered by an unspec ified provider. [facility] Alanine aminotransferase [En zymatic activity/volume] in Serum or PlasmaOrdered By: Sera Flower on 02-05-2023 ALT [Catalytic activity/Vol] 51 U/L 7-52 [facility] Albumin [Mass/volume] in Ser um or Plasma by Bromocresol green (BCG) dye binding methoOrdered By: Sera Flower on 02-05-2023 Albumin BCG dye [Mass/Vol] 4.4 g/dL 3.5-5.7 [facility] Alkaline phosphatase [Enzyma tic activity/volume] in Serum or PlasmaOrdered By: Sera Flower on 02-05-2023 ALP [Catalytic activity/Vol] 61 U/L 34-104 [facility] Aspartate aminotransferase [ Enzymatic activity/volume] in Serum or PlasmaOrdered By: Sera Flower on 02-05-2023 AST [Catalytic activity/Vol] 39 U/L 13-39 [facility] Bilirubin.total [Mass/volume ] in Serum or PlasmaOrdered By: Sera lFower on 02-05-2023 Bilirubin [Mass/Vol] 0.7 mg/dL 0.3-1.0 [facility] Calcium [Mass/volume] in Ser um or PlasmaOrdered By: Sera Flower on 02-05-2023 Calcium [Mass/Vol] 9.1 mg/dL 8.6-10.3 [facility] Carbon dioxide, total [Moles /volume] in Serum or PlasmaOrdered By: Sera Flower on 02-05-2023 CO2 [Moles/Vol] 28.0 mmol/L 21.0-31.0 [facility] Chloride [Moles/volume] in S taylor or PlasmaOrdered By: Sera Flower on 02-05-2023 Chloride [Moles/Vol] 103 mmol/L 98-107 [facility] Comprehensive Metabolic Pane maria esther 02-05-2023 Albumin [Mass/Vol] 4.4 g/dL Normal 3.5-5.7 [facility] Comment on above: Order Comment: PT IS FASTING Performed By: #### C MP #### [facility] [address] Albumin/Globulin [Mass ratio] 2.6 {ratio} Normal [facility] Comment on above: Order Comment: PT IS FASTING Performed By: #### C MP #### [facility] [address] ALP [Catalytic activity/Vol] 61 U/L Normal 34-104 [facility] Comment on above: Order Comment: PT IS FASTING Result Comment: PERF ORMED BY: [place] [address] PATHOLOGIST ENVIRONMENTAL EMERGENCIES ASSISTANT RAPHAEL RANGEL M.D. Performed By: #### C MP #### [facility] [address] ALT [Catalytic activity/Vol] 51 U/L Normal 7-52 [facility] Comment on above: Order Comment: PT IS FASTING Performed By: #### C MP #### [facility] [address] Anion gap [Moles/Vol] 11.4 mmol/L Normal 6.0-15.0 [facility] Comment on above: Order Comment: PT IS FASTING Performed By: #### C MP #### [facility] [address] AST [Catalytic activity/Vol] 39 U/L Normal 13-39 [facility] Comment on above: Order Comment: PT IS FASTING Performed By: #### C MP #### [facility] [address] [place] [id number] [facility] Bilirubin [Mass/Vol] 0.7 mg/dL Normal 0.3-1.0 [facility] Comment on above: Order Comment: PT IS FASTING Performed By: #### C MP #### [facility] [address] Calcium [Mass/Vol] 9.1 mg/dL Normal 8.6-10.3 [facility] Comment on above: Order Comment: PT IS FASTING Performed By: #### C MP #### [facility] [address] Chloride [Moles/Vol] 103 mmol/L Normal 98-107 [facility] Comment on above: Order Comment: PT IS FASTING Performed By: #### C MP #### [address] CO2 [Moles/Vol] 28.0 mmol/L Normal 21.0-31.0 [facility] Comment on above: Order Comment: PT IS FASTING Performed By: #### C MP #### [facility] [address] Creatinine [Mass/Vol] 1.00 mg/dL Normal 0.70-1.[address] [facility] Comment on above: Order Comment: PT IS FASTING Performed By: #### C MP #### [facility] [address] [place] [address] [place] GFR/1.73 sq M.predicted MDRD (S/P/Bld) [Vol rate/Area] mL/min/{1.73_m2} [facility] Comment on above: Order Comment: PT IS FASTING Performed By: #### C MP #### [facility] [address] [place] [address] [place] Globulin (S) [Mass/Vol] 1.7 g/dL [facility] Comment on above: Order Comment: PT IS FASTING Performed By: #### C MP #### [facility] [address] [place] [address] [place] Glucose [Mass/Vol] 93 mg/dL Normal 70-100 [facility] Comment on above: Order Comment: PT IS FASTING Result Comment: [place] Glucose Reference Range is dependent on time and content of last meal. Glucose of more than 200 mg/dL in a nonstressed, ambulatory subject supports the diagnosis of Diabetes Mellitus. ADA recommended reference range Performed By: #### C MP #### [facility] [address] Potassium [Moles/Vol] 4.4 mmol/L Normal 3.5-5.[address] [facility] Comment on above: Order Comment: PT IS FASTING Performed By: #### C MP #### [facility] [address] [place] [address] [place] Protein [Mass/Vol] 6.1 g/dL Low 6.4-8.9 [facility] Comment on above: Order Comment: PT IS FASTING Performed By: #### C MP #### [facility] [address] [place] [address] [place] Sodium [Moles/Vol] 138 mmol/L Normal 136-145 [facility] Comment on above: Order Comment: PT IS FASTING Performed By: #### C MP #### [facility] [address] [place] [address] [place] Urea nitrogen [Mass/Vol] 15 mg/dL Normal 7-25 [facility] Comment on above: Order Comment: PT IS FASTING Performed By: #### C MP #### [facility] [address] [place] [id number] [place] Creatinine [Mass/volume] in Serum or PlasmaOrdered By: Sera Flower on 02-05-2023 Creatinine [Mass/Vol] 1.00 mg/dL 0.70-1.[address] [facility] E[facility] echo transthoracicon [facility] echo transthoracic [facility] [address] [place] [address] Echocardiogram Signed Patient: Demarcus Panchal MR#: [id number] 652 : 1955 Acct:[id number] Age/Sex: 68 / M ADM Date: 02/05/23 Loc: Room: Type: [facility] Attending Dr: Rene Castro MD Ordering Provider: Rene Castro MD, [facility] Date of Service: 02/05/23/ [facility] echo transthoracic: HTN, ISCHEMIC CARDIOMYOPATHY Copies to: Rene Castro MD, [facility] BSA: 2.2 m2 BP: 141/82 mmHg HR: 53 Reason For Study: HTN, ISCHEMIC CARDIOMYOPATHY History: HTN, HLD, Former Smoker, OR, 5 Stents, Asthma, Emphysema, COVID Interpretation Summary [...] 02/05/23 1042 Signed By: Rene Castro MD, [facility] 02/05/23 1207 Normal [facility] Globulin Calc (S) [Mass/Vol] Ordered By: Sera Flower on 02-05-2023 Globulin (S) [Mass/Vol] 1.7 g/dL [facility] Glucose [Mass/volume] in Ser um or PlasmaOrdered By: Sera Flower on 02-05-2023 Glucose [Mass/Vol] 93 mg/dL 70-100 [facility] Comment on above: ADA recommended refe rence rangeRandom Glucose Reference Range is dependent on time and content of last meal. Glucose of more than 200 mg/dL in a nonstressed, ambulatory subject supports the diagnosis of Diabetes Mellitus. No Panel InformationOrdered By: Sera Flower on 02-05-2023 Estimated GFR (CKD-EPI) > 60.0 mL/Min [facility] Creatinine Clearance (Chem N/A [facility] No Panel Informationon 02-05 [facility] daniel 250 DO Work Phone: Potassium [Moles/volume] in Serum or PlasmaOrdered By: Sera Flower on 02-05-2023 Potassium [Moles/Vol] 4.4 mmol/L 3.5-5.[address] [facility] Protein [Mass/volume] in Ser um or PlasmaOrdered By: Sera Flower on 02-05-2023 Protein [Mass/Vol] 6.1 g/dL 6.4-8.9 [facility] Serum or plasma albumin/glob ulin mass ratioOrdered By: Sera Flower on 02-05-2023 Albumin/Globulin [Mass ratio] 2.6 {ratio} [facility] Serum or plasma anion gap de terminationOrdered By: Sera Flower on 02-05-2023 Anion gap [Moles/Vol] 11.4 mmol/L 6.0-15.0 [facility] Sodium [Moles/volume] in Ser um or PlasmaOrdered By: Sera Flower on 02-05-2023 Sodium [Moles/Vol] 138 mmol/L 136-145 [facility] Urea nitrogen [Mass/volume] in Serum or PlasmaOrdered By: Sera Flower on 02-05-2023 Urea nitrogen [Mass/Vol] 15 mg/dL 7- [facility] CARDIAC STRESS/REST INJE CTIONon 01-03-2023 [facility] CARDIAC STRESS/REST INJECTION Patient Name: DEMARCUS PANCHAL STUDY: MYOCARDIAL PERFUSION STRESS TEST WITH LEXISCAN Performing facility: [facility], [address] [place] [address], [address], [address] Provider: Rene Castro MD, [facility] PCP: Dr. Hunter Flower Supervising provider: Danna Davis DO, [facility] INDICATION: CAD; HTN Hyperlipidemia Ischemic cardiomyopathy HISTORY: Gender: M; Age: 68 y/o ; Height: 172.72 cm; Weight: 906.1662746 kg. CAD; High Cholesterol; HTN; Quit smoking 38 years ago. Cardiac catheterization on 2009. PTCA on 2009. COMPARISON: Previous nuclear testing completed at [facility]. ACCESSION NUMBER(S): [id number]; [id number]; [id number] ORDERING CLINICIAN: RENE CASTRO TECHNIQUE: TWO DAY [...] RENE CASTRO MD Normal [facility] No Panel Informationon 01-03 Normal -[facility] daniel 250 DO Work Phone: Office Visit [...] Weight Tips; Status:Complete - Retrospective Authorization; Done: [id number] Some eating tips that can help you lose weight.; Status:Complete - Retrospective Authorization; Done: [id number] Essential hypertension, Ischemic cardiomyopathy Renew: Carvedilol 6.25 MG Oral Tablet (Coreg); TAKE 1 TABLET TWICE DAILY WITH MEALS SocHx: Former smoker Stop: Losartan Potassium 25 MG Oral Tablet Tobacco Use Screening; Status:Complete; Done: [id number] Unlinked Stop: hydroCHLOROthiazide 25 MG Oral Tablet [...] down with emphasis on low-calorie diet Rene aCstro MD, [facility] Surgical History Problems History of Coronary [...] No a (more content not included)... Normal [employer] Tobacco Screening.on Adult depression screening assessment No [facility] 250 DO Work Phone: Fall risk assessment a) No falls within the last year [facility] 250 DO Work Phone: Tobacco use status [facility] b) No [facility] 250 DO Work Phone: MRI Soft Tissue [...] by Ethan Walsh on 07/16/2022 1246 Normal [facility] Chemistry Quality Control Analyst MRI Brain w/o + w/on 023 MRI [...] by Sean Trejo on 07/01/2022 0911 Normal [facility] Chemistry Quality Control Analyst Shaquille 06-21-2022 [facility]AL[facility] Telephone (INTMLN) -- KVNGDEMARCUS ([id number]) 1955 Date Time Provider Department 06/21/22 DEANDRA BENDER During your visit today, we recorded the following information about you: Delores Mccollum 06/21/2022 12:54 PM Signed [facility] called today. : 1955 Allergies: Codeine, Codeine-Guaifenesin, and Guaifenesin (home) [phone] (cell) Reason for call: Sasha F:[phone] Asking for the MRI orders and office notes to be faxed over to [facility]. Patient will be having them done there. Patient last appointment: Visit date not found The patients preferred pharmacy has been captured for this encounter? not asked Delores Mccollum Orquidea Ryan [facility] 06/21/2022 2:03 PM Signed Notes and MRI [...] Status:Closed by ORQUIDEA SIBLEY on 06/21/22 Normal [facility] XR Ribs w/ PA Chest Left*on 03-13-2022 [...] by Ethan Walsh on 03/13/2022 1254 Normal [facility] XR Chest 2 Views*on 01-18-20 22 XR Chest 2 Views* COMPARISON: none TECHNIQUE: Upright PA and lateral views of the chest were obtained. FINDINGS: Heart is normal in size. Lungs are clear and well expanded. No pleural effusion or pneumothorax. The bony thorax is unremarkable. IMPRESSION: NO ACUTE CARDIOPULMONARY ABNORMALITY. Report reported and signed by AMALIA LOGAN on 01/17/2022 1243 Normal [facility] Specialist Tobacco Screening.on 022 Adult depression screening assessment No [facility] daniel 250 DO Work Phone: Fall risk assessment a) No falls within the last year [facility] daniel 250 DO Work Phone: Tobacco use status [facility] b) No [facility] daniel 250 DO Work Phone: [...] by AMALIA LOGAN on 08/04/2021 1346 Normal [facility] Specialist Complete Blood Count with Au to Diffon 07-29-2021 Basophils (Bld) [#/Vol] 0.05 10*3/uL Normal 0.00-0.20 [facility] Specialist Comment on above: Performed By: #### C MP, CBCAD #### [facility] [address] [place], [place] [id number] Basophils/100 WBC (Bld) 0.8 % Normal [facility] Specialist Comment on above: Performed By: #### C MP, CBCAD #### [facility] [address] [place], [place] [id number] Eosinophils (Bld) [#/Vol] 0.46 10*3/uL Normal 0.02-0.50 [facility] Specialist Comment on above: Performed By: #### C JOSE ANTONIO, CBCAD #### [facility] [address] [place], [place] [id number] Eosinophils/100 WBC (Bld) 7.7 % Normal [facility] Specialist Comment on above: Performed By: #### C JOSE ANTONIO, CBCAD #### [facility] [address] [place], [place] [id number] Erythrocyte distribution width (RBC) [Ratio] 13.3 % Normal 11.0-15.0 [facility] Specialist Comment on above: Performed By: #### C JOSE ANTONIO, CBCAD #### [facility] [address] [place], [place] [id number] Hematocrit (Bld) [Volume fraction] 42.2 % Normal 38.5-50.0 [facility] Specialist Comment on above: Performed By: #### C JOSE ANTONIO, CBCAD #### [facility] [address] [place], [place] [id number] Hemoglobin (Bld) [Mass/Vol] 14.5 g/dL Normal 13.0-17.1 [facility] Specialist Comment on above: Performed By: #### C MP, CBCAD #### [facility] [address] [place], [place] [id number] Lymphocytes (Bld) [#/Vol] 1.6 10*3/uL Normal 0.9-3.9 [facility] Specialist Comment on above: Performed By: #### C JOSE ANTONIO, CBCAD #### [facility] [address] [place], [place] [id number] Lymphocytes/100 WBC (Bld) 26.1 % Normal [facility] Comment on above: Performed By: #### C MP, CBCAD #### [facility] [address] [place], [place] [id number] MCH (RBC) [Entitic mass] 29.7 pg Normal 27.0-33.0 [facility] Comment on above: Performed By: #### C MP, CBCAD #### [facility] [address] [place], [place] [id number] MCHC (RBC) [Mass/Vol] 34.4 g/dL Normal 32.0-36.0 [facility] Comment on above: Performed By: #### C MP, CBCAD #### [facility] [address] [place], [place] [id number] MCV (RBC) [Entitic vol] 86 fL Normal 80-100 [facility] Comment on above: Performed By: #### C MP, CBCAD #### [facility] [address] [place], [place] [id number] Monocytes (Bld) [#/Vol] 0.9 10*3/uL Normal 0.2-0.9 [facility] Comment on above: Performed By: #### C MP, CBCAD #### [facility] [address] [place], [place] [id number] Monocytes/100 WBC (Bld) 14.6 % Normal [facility] Comment on above: Performed By: #### C MP, CBCAD #### [facility] [address] [place], [place] [id number] Neutrophils (Bld) [#/Vol] 3.0 10*3/uL Normal 1.5-7.8 [facility] Comment on above: Performed By: #### C MP, CBCAD #### [facility] [address] [place], [place] [id number] Neutrophils/100 WBC (Bld) 50.5 % Normal [facility] Specialist Comment on above: Performed By: #### C MP, CBCAD #### [facility] [address] [place], [place] [id number] Platelet mean volume (Bld) [Entitic vol] 10.90 fL Normal 7.50-12.50 [facility] Specialist Comment on above: Performed By: #### C MP, CBCAD #### [facility] [address] [place], [place] [id number] Platelets (Bld) [#/Vol] 166 10*3/uL Normal 140-400 [facility] Specialist Comment on above: Performed By: #### C MP, CBCAD #### [facility] [address] [place], [place] [id number] RBC (Bld) [#/Vol] 4.89 10*6/uL Normal 4.20-5.80 [facility] Specialist Comment on above: Performed By: #### C JOSE ANTONIO, CBCAD #### [facility] [address] [place], [place] [id number] RDW-SD 41.2 fL Normal 37.0-50.0 [facility] Specialist Comment on above: Performed By: #### C JOSE ANTONIO, CBCAD #### [facility] [address] [place], [place] [id number] WBC (Bld) [#/Vol] 5.9 10*3/uL Normal 3.8-11.0 [facility] Specialist Comment on above: Performed By: #### C JOSE ANTONIO, CBCAD #### [facility] [address] [place], [place] [id number] Comprehensive Metabolic Pane [facility] 07-29-2021 Albumin [Mass/Vol] 4.6 g/dL Normal 3.6-5.1 [facility] Specialist Comment on above: Performed By: #### C MP, CBCAD #### [facility] [address] [place], [place] [id number] Albumin/Globulin [Mass ratio] 2.7 {ratio} High 1.0-2.5 [facility] Specialist Comment on above: Performed By: #### C MP, CBCAD #### [facility] [address] [place], [place] [id number] ALP [Catalytic activity/Vol] 74 U/L Normal 40-129 [facility] Specialist Comment on above: Performed By: #### C JOSE ANTONIO, CBCAD #### [facility] [address] [place], [place] [id number] ALT [Catalytic activity/Vol] 55 U/L High 9-46 [facility] Comment on above: Result Comment: 04/27 Female reference range changed. Performed By: #### C MP, CBCAD #### [facility] [address] [place], [place] [id number] Anion gap [Moles/Vol] 16 mmol/L Normal 12-20 [facility] Specialist Comment on above: Result Comment: Effe ctive 06/02/2019 reference range changed. Performed By: #### C MP, CBCAD #### [facility] [address] [place], [place] [id number] AST [Catalytic activity/Vol] 39 U/L Normal 10-40 [facility] Comment on above: Performed By: #### C MP, CBCAD #### [facility] [address] [place], [place] [id number] BUN/CREA 13 Ratio Normal 6-22 [facility] Comment on above: Performed By: #### C MP, CBCAD #### [facility] [address] [place], [place] [id number] Calcium [Mass/Vol] 9.0 mg/dL Normal 8.6-10.2 [facility] Comment on above: Performed By: #### C MP, CBCAD #### [facility] [address] [place], [place] [id number] Chloride [Moles/Vol] 107 mmol/L Normal 98-107 [facility] Comment on above: Performed By: #### C MP, CBCAD #### [facility] [address] [place], [place] [id number] CO2 [Moles/Vol] 20 mmol/L Normal 20-31 [facility] Comment on above: Performed By: #### C MP, CBCAD #### [facility] [address] [place], [place] [id number] Creatinine [Mass/Vol] 1.0 mg/dL Normal 0.7-1.4 [facility] Comment on above: Performed By: #### C MP, CBCAD #### [facility] [address] [place], [place] [id number] eGFRAA 94 mL/min/1.73m2 Normal >60 [facility] Specialist Comment on above: Performed By: #### C MP, CBCAD #### [facility] [address] [place], [place] [id number] eGFRNAA 78 mL/min/1.73m2 Normal >60 [facility] Specialist Comment on above: Performed By: #### C MP, CBCAD #### [facility] [address] [place], [place] [id number] Globulin (S) [Mass/Vol] 1.7 g/dL Low 1.9-3.7 [facility] Specialist Comment on above: Performed By: #### C MP, CBCAD #### [facility] [address] [place], [place] [id number] Glucose [Mass/Vol] 121 mg/dL High 65-99 [facility] Chemistry Quality Control Analyst Comment on above: Result Comment: For FASTING Glucose --- ADA reference ranges: Normal 65-99 mg/dl Prediabetes 100-125 Diabetes >/= 126 Performed By: #### C MP, CBCAD #### [facility] [address] [place], [place] [id number] Potassium [Moles/Vol] 4.2 mmol/L Normal 3.5-5.5 [facility] Comment on above: Performed By: #### C MP, CBCAD #### [facility] [address] [place], [place] [id number] Protein [Mass/Vol] 6.3 g/dL Normal 6.1-8.1 [facility] Chemistry Quality Control Analyst Comment on above: Performed By: #### C MP, CBCAD #### [facility] [address] [place], [place] [id number] Sodium [Moles/Vol] 139 mmol/L Normal 135-146 [facility] Chemistry Quality Control Analyst Comment on above: Performed By: #### C MP, CBCAD #### [facility] [address] [place], [place] [id number] TBIL <0.3 Normal [facility] Specialist Comment on above: Performed By: #### C MP, CBCAD #### [facility] [address] [place], [place] [id number] Urea nitrogen [Mass/Vol] 12 mg/dL Normal 7-25 [facility] Chemistry Quality Control Analyst Comment on above: Performed By: #### C MP, CBCAD #### [facility] [address] [place], [place] [id number] Microalbumin (with Creat)on 07-29-2021 mALB <1.2 Low [facility] Chemistry Quality Control Analyst Comment on above: Result Comment: Unab le to calculate mALB/Crea ratio, mALB is <1.2 mg/dL mALB reference range not established. Performed By: #### m ALBC #### [facility] [address] [place], [place] [id number] UCREA 85 mg/dL Normal 39-259 [facility] Chemistry Quality Control Analyst Comment on above: Performed By: #### m ALBC #### [facility] [address] [place], [place] [id number] Prostatic Specific Antigen, Totalon 07-29-2021 TPSA 2.330 ng/mL Normal <4.000 [facility] Chemistry Quality Control Analyst Comment on above: Result Comment: PSA Test Method: ECLIA/Brandi e 601 Performed By: #### P SA #### [facility] [address] [place], [place] [id number] Q - URINALYSIS,COMPLETEon Appearance (U) CLEAR Normal CLEAR [facility] Chemistry Quality Control Analyst Comment on above: Order Comment: [facility] performed at: [employer] [facility], [address] , [address] [place] [address], [id number], Product Support Engineer: Rafi Agustin MD [facility] Collection Date/Time: [facility] Results Received Date/Time: [facility] Reported Date/Time: Performed By: #### 3 4F #### [facility] Default [address] [place] [address] BACTERIA NONE SEEN Normal NONE SEEN [facility] Chemistry Quality Control Analyst Comment on above: Order Comment: [facility] performed at: [employer] [facility], [address], [address] [place] [address], [id number], Product Support Engineer: Rafi Agustin MD [facility] Date/Time: [facility] Results Received Date/Time: [facility] Reported Date/Time: Performed By: #### 3 4F #### [facility] Default [address] [place] [address] Bilirubin Ql (U) Negative Normal NEGATIVE [facility] Chemistry Quality Control Analyst Comment on above: Order Comment: [facility] Testing performed at: [employer], [address] , [address] [place] [address], [address] [place] [address], Product Support Engineer: Rafi Agustin MD [facility] Collection Date/Time: [facility] Results Received Date/Time: [facility] Reported Date/Time: Performed By: #### 3 4F #### [facility] Default [address] [place] [address] Color (U) YELLOW Normal YELLOW [facility] Chemistry Quality Control Analyst Comment on above: Order Comment: [facility] performed at: [employer] [facility], [address] , [address] [place] [address], [address] [place] [address], Product Support Engineer: Rafi Agustin MD [facility] Collection Date/Time: [facility] Results Received Date/Time: [facility] Reported Date/Time: Performed By: #### 3 4F #### [facility] Default [address] [place] [address] Glucose Ql (U) Negative Normal NEGATIVE [facility] Chemistry Quality Control Analyst Comment on above: Order Comment: [facility] performed at: [employer] [employer] [facility], [address] , [address] [place] [address], [address] [place] [address], Product Support Engineer: Rafi Agustin MD [facility] Date/Time: [facility] Results Received Date/Time: [facility] Reported Date/Time: Performed By: #### 3 4F #### [facility] Default [address] [place] [address] HYALINE CAST NONE SEEN Normal NONE SEEN [facility] Chemistry Quality Control Analyst Comment on above: Order Comment: [facility] performed at: [employer] [employer] [facility], [address] , [address] [place] [address], [address] [place] [address], Product Support Engineer: Rafi Agustin MD [facility] Date/Time: [facility] Results Received Date/Time: [facility] Reported Date/Time: Performed By: #### 3 4F #### [facility] Default [address] [place] [address] Ketones Ql (U) Negative Normal NEGATIVE [facility] Specialist Comment on above: Order Comment: [facility] performed at: [employer] [employer] [facility], [address] [facility], [address] [place] [address], [address] [place] [address], Product Support Engineer: Rafi Agustin MD [facility] Collection Date/Time: [facility] Results Received Date/Time: [facility] Reported Date/Time: Performed By: #### 3 4F #### [facility] Default [address] [place] [address] Leukocyte esterase Test strip Ql (U) Negative Normal NEGATIVE [facility] Chemistry Quality Control Analyst Comment on above: Order Comment: [facility] performed at: [employer] [employer] [facility], [address] [facility], [address] [place] [address], [address] [place] [address], Product Support Engineer: Rafi Agustin MD [facility] Collection Date/Time: [facility] Results Received Date/Time: [facility] Reported Date/Time: Performed By: #### 3 4F #### [facility] Default [address] [place] [address] Nitrite Ql (U) Negative Normal NEGATIVE [facility] Chemistry Quality Control Analyst Comment on above: Order Comment: [facility] performed at: [employer] [employer] [facility], [address] [facility], [address] [place] [address], [address] [place] [address], Product Support Engineer: Rafi Agustin MD [facility] Date/Time: [facility] Results Received Date/Time: [facility] Reported Date/Time: Performed By: #### 3 4F #### [facility] Default [address] [place] [address] OCCULT BLOOD Negative Normal NEGATIVE [facility] Chemistry Quality Control Analyst Comment on above: Order Comment: [facility] performed at: [facility], [employer] [facility], [address] [facility], [address] [place] [address], [address] [place] [address], Product Support Engineer: Rafi Agustin MD [facility] Collection Date/Time: [facility] Results Received Date/Time: [facility] Reported Date/Time: Performed By: #### 3 4F #### [facility] Default [address] [place] [address] pH (U) 6.5 [pH] Normal 5.0-8.0 [facility] Chemistry Quality Control Analyst Comment on above: Order Comment: [facility] performed at: [facility] [employer] [facility], 5 [facility], [address] [place] [address], [address] [place] [address], Product Support Engineer: Rafi Agustin MD [facility] Collection Date/Time: [facility] Results Received Date/Time: [facility] Reported Date/Time: Performed By: #### 3 4F #### [facility] Default [address] [place] [address] Protein Ql (U) Negative Normal NEGATIVE [facility] Chemistry Quality Control Analyst Comment on above: Order Comment: [facility] performed at: [facility], [employer] [facility], 5 [facility], [address] [place] [address], [address] [place] [address], Product Support Engineer: Rafi Agustin MD [facility] Date/Time: [facility] Results Received Date/Time: [facility] Reported Date/Time: Performed By: #### 3 4F #### [facility] Default [address] [place] [address] RBC NONE SEEN Normal < OR = 2 [facility] Chemistry Quality Control Analyst Comment on above: Order Comment: [facility] performed at: [facility], [employer] [facility], 5 [facility], [address] [place] [address], [address] [place] [address], Product Support Engineer: Rafi Agustin MD [facility] Date/Time: [facility] Results Received Date/Time: [facility] Reported Date/Time: Performed By: #### 3 4F #### [facility] Default [address] [place] [address] Specific gravity (U) [Rel density] 1.012 Normal 1.001-1.035 [facility] Specialist Comment on above: Order Comment: [facility] performed at: [employer] [employer] [facility], [address] [facility], [address] [place] [address], [address] [place] [address], Product Support Engineer: Rafi Agustin MD [facility] Date/Time: [facility] Results Received Date/Time: [facility] Reported Date/Time: Performed By: #### 3 4F #### [facility] Default [address] [place] [address] SQUAMOUS EPITHELIAL CELLS NONE SEEN Normal < OR = 5 [facility] Specialist Comment on above: Order Comment: [facility] performed at: [employer] [employer] [facility], 5 [facility], [address] [place] [address], [address] [place] [address], Product Support Engineer: Rafi Agustin MD [facility] Date/Time: [facility] Results Received Date/Time: [facility] Reported Date/Time: Performed By: #### 3 4F #### [facility] Default [address] [place] [address] WBC NONE SEEN Normal < OR = 5 [facility] Specialist Comment on above: Order Comment: [facility] performed at: [employer] [employer] [facility], [address] [facility], [address] [place] [address], [address] [place] [address], Product Support Engineer: Rafi Agustin MD [facility] Date/Time: [facility] Results Received Date/Time: [facility] Reported Date/Time: Performed By: #### 3 4F #### [facility] Default [address] [place] [address] No Panel Information [facility] Vital Signs Date Time Vital Sign Value Performing Clinician Facility 10-18-2023 09:25-0400 Body height 172.7 cm Rene Castro MD Work Phone: [facility] 10-18-2023 09:25-0400 Body mass index (BMI) [Ratio] 36.31 kg/m2 Rene Castro MD Work Phone: [facility] 10-18-2023 09:25-0400 Body weight 108.32 kg Rene Castro MD Work Phone: [facility] 10-18-2023 09:25-0400 Diastolic blood pressure 76 mm[Hg] Rene Castro MD Work Phone: [facility] 10-18-2023 09:25-0400 Heart rate 68 /min Rene Castro MD Work Phone: [facility] 10-18-2023 09:25-0400 Systolic blood pressure 120 mm[Hg] Rene Castro MD Work Phone: [facility] 06-30-2023 10:23-0500 Body mass index (BMI) [Ratio] 35.28 kg/m2 Hosea Sifuentes DO Work Phone: [facility] 06-30-2023 10:23-0500 Body temperature 97.81 [degF] Hosea Sifuentes DO Work Phone: [facility] 06-30-2023 10:23-0500 Body weight 105.23 kg Hosea Sifuentes DO Work Phone: [facility] 06-30-2023 10:23-0500 Diastolic blood pressure 82 mm[Hg] Hosea Sifuentes DO Work Phone: [facility] 06-30-2023 10:23-0500 Heart rate 86 /min Hosea Sifuentes DO Work Phone: [facility] 06-30-2023 10:23-0500 Respiratory rate 18 /min Hosea Sifuentes DO Work Phone: [facility] 06-30-2023 10:23-0500 SaO2% (BldA) [Mass fraction] 94 % Hosea Sifuentes DO Work Phone: [facility] 06-30-2023 10:23-0500 Systolic blood pressure 138 mm[Hg] Hosea Sifuentes DO Work Phone: [facility] 06-14-2023 14:25-0500 Body temperature 97.7 [degF] MD Sera Flower Work Phone: [facility] 06-14-2023 14:25-0500 Diastolic blood pressure 74 mm[Hg] MD Sera Flower Work Phone: [facility] 06-14-2023 14:25-0500 Heart rate 78 /min MD Sera Flower Work Phone: [facility] 06-14-2023 14:25-0500 Respiratory rate 20 /min MD Sera Flower Work Phone: [facility] 06-14-2023 14:25-0500 SaO2% (BldA) [Mass fraction] 95 % MD Sera Flower Work Phone: [facility] 06-14-2023 14:25-0500 Systolic blood pressure 155 mm[Hg] MD Sera Flower Work Phone: [facility] 06-14-2023 11:48-0500 Body height 172.72 cm MD Sera Flower Work Phone: [facility] 06-14-2023 11:48-0500 Body weight 108.9 kg MD Sera Flower Work Phone: [facility] 03-23-2023 09:34-0400 Body height 172.7 cm Rene Castro MD Work Phone: [facility] 03-23-2023 09:34-0400 Body mass index (BMI) [Ratio] 35.12 kg/m2 Rene Castro MD Work Phone: [facility] 03-23-2023 09:34-0400 Body weight 104.78 kg Rene Castro MD Work Phone: [facility] 03-23-2023 09:34-0400 Diastolic blood pressure 72 mm[Hg] Rene Castro MD Work Phone: [facility] 03-23-2023 09:34-0400 Heart rate 60 /min Rene Castro MD Work Phone: [facility] 03-23-2023 09:34-0400 Systolic blood pressure 128 mm[Hg] Rene Castro MD Work Phone: [facility] 09-07-2022 11:31-0400 Body height 172.72 cm Sera Flower Work Phone: [facility]Pitj[facility] daniel 250 DO Work Phone: 09-07-2022 11:31-0400 Body mass index (BMI) [Ratio] 36.8 kg/m2 Sera Flower Work Phone: BM-Yzmezpfznp-Vsydm daniel 250 DO Work Phone: 09-07-2022 11:31-0400 Body surface area Derived from formula 2.22 m2 Sera Flower Work Phone: BG-Wrihbcfysy-Ybuer daniel 250 DO Work Phone: 09-07-2022 11:31-0400 Body weight 109.77 kg Sera Flower Work Phone: CJ-Dfqroawdam-Sidfq daniel 250 DO Work Phone: 09-07-2022 11:31-0400 Diastolic blood pressure 68 mm[Hg] Sera Flower Work Phone: NX-Nhpqyyypyx-Nxjcm daniel 250 DO Work Phone: 09-07-2022 11:31-0400 Heart rate 76 /min Sera Flower Work Phone: HF-Rgyjhrantu-Aradf daniel 250 DO Work Phone: 09-07-2022 11:31-0400 Systolic blood pressure 124 mm[Hg] Sera Flower Work Phone: LA-Dobtrdpdsm-Mmwaq daniel 250 DO Work Phone: 09-05-2021 14:04-0400 Body height 172.72 cm Sera Flower Work Phone: [facility] 250 DO Work Phone: 09-05-2021 14:04-0400 Body mass index (BMI) [Ratio] 36.49 kg/m2 Sera Flower Work Phone: [facility] 250 DO Work Phone: 09-05-2021 14:04-0400 Body surface area Derived from formula 2.21 m2 Sera Flower Work Phone: [facility] 250 DO Work Phone: 09-05-2021 14:04-0400 Body weight 108.86 kg Sera Flower Work Phone: [facility] 250 DO Work Phone: 09-05-2021 14:04-0400 Diastolic blood pressure 82 mm[Hg] Sera Flower Work Phone: [facility] 250 DO Work Phone: 09-05-2021 14:04-0400 Heart rate 70 /min Sera Flower Work Phone: [facility] 250 DO Work Phone: 09-05-2021 14:04-0400 Systolic blood pressure 132 mm[Hg] Sera Flower Work Phone: [facility] 250 DO Work Phone: Encounters Encounter Date Encounter Type Care Provider Facility Start: 2024 End: 2024 ambulatory BENJY ALAS Not Available Start: 10-18-2023 End: 10-18-2023 Office outpatient visit 25 minutes Rene Castro MD Work Phone: [facility] Comment on above: Coronary artery dise ase involving kaibab coronary artery of kaibab heart without angina pectoris (Primary Dx); Essential hypertension; Mixed hyperlipidemia; Ischemic cardiomyopathy; Status post coronary artery stent placement; Class 2 obesity with body mass index (BMI) of 35.0 to 35.9 in adult, unspecified obesity type, unspecified whether serious comorbidity present; Former smoker Start: 10-18-2023 End: 10-18-2023 ambulatory RENE [facility] Ambulatory Start: 09-20-2023 End: 09-20-2023 ambulatory SERA FLOWER Not Available Start: 07-30-2023 End: 07-30-2023 ambulatory SERA FLOWER Not Available Start: 06-30-2023 End: 06-30-2023 ambulatory HOSEA SIFUENTES Not Available Start: 06-30-2023 End: 06-30-2023 Office outpatient visit 25 minutes Hosea Sifuentes DO Work Phone: [facility] Comment on above: Acute exacerbation o f chronic obstructive pulmonary disease (CMS/HCC) (Primary Dx) Start: 06-27-2023 End: 06-27-2023 ambulatory SERA FLOWER Not Available Start: 06-14-2023 End: 06-14-2023 Emergency department patient visit Jasper Martinez Facility:[facility] Start: 06-14-2023 End: 06-14-2023 Emergency department patient visit MD Sera Flower Work Phone: [facility] Work Phone: Start: 06-14-2023 End: 06-14-2023 ambulatory RENZO WEAVER Not Available Start: 05-19-2023 End: 05-19-2023 ambulatory BRITTANY FIGUEROA Not Available Start: 03-23-2023 End: 03-23-2023 Office outpatient visit 25 minutes Rene Castro MD Work Phone: [facility] Comment on above: Coronary artery dise ase involving kaibab coronary artery of kaibab heart without angina pectoris; Essential hypertension; Mixed hyperlipidemia; Ischemic cardiomyopathy; Status post coronary artery stent placement; Class 2 obesity with body mass index (BMI) of 35.0 to 35.9 in adult, unspecified obesity type, unspecified whether serious comorbidity present Start: 03-23-2023 End: 03-23-2023 ambulatory [facility] Ambulatory Start: 02-06-2023 Other Sera Flower Work Phone: [facility] 250 DO Work Phone: Start: 02-05-2023 End: 02-05-2023 ambulatory [facility] Facility:[facility] Start: 02-05-2023 End: 02-05-2023 ambulatory MD Sera Flower Work Phone: [facility] [place] [facility] Work Phone: Start: 02-05-2023 End: 02-05-2023 Patient encounter procedure MD Sera Flower Work Phone: [facility] [place] [facility] Work Phone: Start: 02-05-[address] Sera Flower Facility:[id number] Start: 01-30-2023 AUDIT Sera Flower Work Phone: [facility] 600 DO Work Phone: Start: 01-15-2023 Other Sera Flower Work Phone: [facility] 250 DO Work Phone: Start: 01-12-2023 Chart Update Sera Flower Work Phone: [facility] 250 DO Work Phone: Start: 01-04-[address] Sera Flower Facility:[id number] Start: 01-03-[address] Sera Flower Facility:[id number] Start: 11-14-2022 End: 11-14-2022 ambulatory DEANDRA BENDER Facility:[facility] Start: 11-14-2022 End: 11-14-2022 Patient encounter procedure Deandra Bender MD Work Phone: Ophthalmology Comment on above: Clonic hemifacial sp asm, right (Primary Dx) Start: 09-07-2022 Office outpatient vi sit 25 minutes Sera Flower Work Phone: [facility] 250 DO Work Phone: Start: 09-07-2022 ambulatory Rene Castro Facility : Start: 08-08-2022 End: 08-08-2022 ambulatory DEANDRA BENDER Facility:[facility] Start: 08-08-2022 End: 08-08-2022 Patient encounter procedure Deandra Bender MD Work Phone: Ophthalmology Comment on above: Clonic hemifacial sp asm, right (Primary Dx) Start: 06-21-2022 Telephone encounter Deandra Bender MD Work Phone: Internal Medicine [place] Comment on above: Orders Start: 06-21-2022 End: 06-21-2022 ambulatory DEANDRA BENDER Facility:[facility] Start: 06-21-2022 End: 06-21-2022 Patient encounter procedure Deandra Bender MD Work Phone: Ophthalmology Comment on above: Clonic hemifacial sp asm, right (Primary Dx); Paralytic strabismus; Jada's syndrome Start: 05-01-2022 End: 05-01-2022 ambulatory MAU RANDLE Facility:[facility] Start: 05-01-2022 End: 05-01-2022 Patient encounter procedure Mau Randle OD Work Phone: Ophthalmology Comment on above: Eyelid myokymia (Velma maren Dx); Dry eye syndrome of both eyes; Hyperopia of both eyes with astigmatism and presbyopia Start: 09-05-2021 Office outpatient vi sit 25 minutes Sera Flower Work Phone: [facility] 250 DO Work Phone: Procedures Date Procedure Procedure Detail Performing Clinician Start: 09-14-2023 Lipid 1996 panel - Serum or Plasma Rene Casrto MD Work Phone: Start: 06-14-2023 SARS-CoV-2, Influenza [...] [facility] Start: 03-23-2023 Lipid panel [facility] Start: 03-20-2023 Echocardiography [facility] Start: 03-20-2023 Echocardiography Generic Provider Scanning Start: 02-13-2023 History of placement of stent for coronary artery disease Status post coronary artery stent placement Rene Castro MD Work Phone: Start: 11-14-2022 [facility] innervated facial nrv unil Deandra Bender MD Work Phone: Start: [facility]-08-20[facility] Evelia Huffman CLOD PULLER.GLASS CUT OFF SUPERVISOR Work Phone: Start: 07-28-2019 Colonoscopy Hosea Sifuentes [...] 07-27-2029 Screening for malignant neoplasm of colon [facility] Start: 09-13-2028 Lipid panel Lipid Panel [facility] Start: 08-11-2027 DTaP/Tdap/Td Vaccines (2 - Td or Tdap) DTaP/Tdap/Td Vaccines (2 - Td or Tdap) [facility] Start: 05-15-2024 End: 05-15-2024 Patient encounter procedure 05/15/2024 9:10 AM EST Office Visit [facility] [address] [facility] [address] [place] [address] Rene Castro MD [address] [facility] [address] [place] [address] [facility] Start: 03-20-2024 Echocardiography Echocardiogram [facility] Start: 01-27-2024 Influenza vaccination Influenza Vaccine (Season Ended) [facility] Start: 10-18-2023 End: 10-18-2023 Patient encounter procedure 10/18/2023 9:30 AM EDT Office Visit [place] [id number] [facility] [address] [place] [address] Rene Castro MD [address] [facility] [address] [place] [address] [facility] Start: 09-20-2023 End: 09-20-2023 Patient encounter procedure 09/20/2023 1:00 PM EDT Office Visit [facility] [address] [place] [id number] Sera Flower MD [address] [place] [address] [facility] Start: 03-23-2023 End: 03-23-2024 Alanine aminotransferase [Enzymatic activity/volume] in Serum or Plasma by With P-5'-P Alanine Aminotransferase Lab Routine Coronary artery disease involving kaibab coronary artery of kaibab heart without angina pectoris Essential hypertension Mixed hyperlipidemia Ischemic cardiomyopathy Status post coronary artery stent placement Class 2 obesity with body mass index (BMI) of 35.0 to 35.9 in adult, unspecified obesity type, unspecified whether serious comorbidity present Expected: 03/23/2023 (Approximate), Expires: 03/23/2024 [facility] Work Phone: Comment on above: Expected: 03/23/2023 (Approximate), Expi res: 03/23/2024 Start: 03-23-2023 End: 03-23-2024 Aspartate aminotransferase [Enzymatic activity/volume] in Serum or Plasma by With P-5'-P Aspartate Aminotransferase Lab Routine Coronary artery disease involving kaibab coronary artery of kaibab heart without angina pectoris Essential hypertension Mixed hyperlipidemia Ischemic cardiomyopathy Status post coronary artery stent placement Class 2 obesity with body mass index (BMI) of 35.0 to 35.9 in adult, unspecified obesity type, unspecified whether serious comorbidity present Expected: 03/23/2023 (Approximate), Expires: 03/23/2024 [facility] Work Phone: Comment on above: Expected: 03/23/2023 (Approximate), Expi res: 03/23/2024 Start: 03-23-2023 End: 03-23-2024 Basic metabolic 2000 panel - Serum or Plasma Basic Metabolic Panel Lab Routine Coronary artery disease involving kaibab coronary artery of kaibab heart without angina pectoris Essential hypertension Mixed hyperlipidemia Ischemic cardiomyopathy Status post coronary artery stent placement Class 2 obesity with body mass index (BMI) of 35.0 to 35.9 in adult, unspecified obesity type, unspecified whether serious comorbidity present Expected: 03/23/2023 (Approximate), Expires: 03/23/2024 [facility] Work Phone: Comment on above: Expected: 03/23/2023 (Approximate), Expi res: 03/23/2024 Start: 03-23-2023 End: 03-23-2024 CBC panel - Blood by Automated count CBC Lab Routine Coronary artery disease involving kaibab coronary artery of kaibab heart without angina pectoris Essential hypertension Mixed hyperlipidemia Ischemic cardiomyopathy Status post coronary artery stent placement Class 2 obesity with body mass index (BMI) of 35.0 to 35.9 in adult, unspecified obesity type, unspecified whether serious comorbidity present Expected: 03/23/2023 (Approximate), Expires: 03/23/2024 [facility] Service Area Work Phone: Comment on above: Expected: 03/23/2023 (Approximate), Expi res: 03/23/2024 Start: 03-23-2023 End: 03-23-2024 Lipid 1996 panel - Serum or Plasma Lipid Panel Lab Routine Coronary artery disease involving kaibab coronary artery of kaibab heart without angina pectoris Essential hypertension Mixed hyperlipidemia Ischemic cardiomyopathy Status post coronary artery stent placement Class 2 obesity with body mass index (BMI) of 35.0 to 35.9 in adult, unspecified obesity type, unspecified whether serious comorbidity present Expected: 03/23/2023 (Approximate), Expires: 03/23/2024 [facility] Work Phone: Comment on above: Expected: 03/23/2023 (Approximate), Expi res: 03/23/2024 Start: 03-15-2023 FUV, Provider: Rene Castro, Status: Pen, Time: 9:20 AM FUV, Provider: Rene Castro, Status: Pen, Time: 9:20 AM [facility] 250 DO Work Phone: Start: 01-26-2023 COVID-19 Vaccine ( season) COVID-19 Vaccine ( season) [facility] Start: 01-26-2023 Influenza vaccination [facility] Start: 09-07-2022 FUV, Provider: Rene Castro, Status: Pen, Time: 8:30 AM FUV, Provider: Rene Castro, Status: Pen, Time: 8:30 AM [facility] 250 DO Work Phone: Start: 05-28-2022 ADVANCE DIRECTIVE DISCUSSION ADVANCE DIRECTIVE DISCUSSION [facility] Start: 05-28-2022 DEPRESSION ASSESSMENT DEPRESSION ASSESSMENT [facility] Start: 01-26-2022 Influenza vaccination INFLUENZA (#1) [facility] Start: 05-28-2021 ADVANCE DIRECTIVE DISCUSSION ADVANCE DIRECTIVE DISCUSSION [facility] Start: 05-28-2021 DEPRESSION ASSESSMENT DEPRESSION ASSESSMENT [facility] Start: 2018 Abdominal aortic aneurysm screening Abdominal Aortic Aneurysm (AAA) Screening [facility] Start: 2018 PNEUMOCOCCAL: 65+ (1 - PCV) PNEUMOCOCCAL: 65+ (1 - PCV) [facility] Start: 02-15-2017 Zoster Vaccines (2 of 3) Zoster Vaccines (2 of 3) [facility] Start: 2013 RSV patients and/or patients aged 60+ years (1 - 1-dose 60+ series) RSV patients and/or patients aged 60+ years (1 - 1-dose 60+ series) [facility] Start: 2003 SHINGRIX VACCINE (1 of 2) SHINGRIX VACCINE (1 of 2) [facility] Start: 1998 COLOGUARD (FIT-DNA) COLOGUARD (FIT-DNA) [facility] Start: 1998 Colonoscopy COLONOSCOPY [facility] Start: 1998 COLORECTAL CANCER SCREENING COLORECTAL CANCER SCREENING [facility] Start: [address] COLONOGRAPHY [facility] Start: 1998 DIABETES SCREEN DIABETES SCREEN [facility] Start: 1998 FECAL OCCULT BLOOD FECAL OCCULT BLOOD [facility] Start: 1998 SIGMOIDOSCOPY SIGMOIDOSCOPY [facility] Start: 01-02-1988 LIPID SCREEN LIPID SCREEN [facility] Start: 01-02-1972 Urine microalbumin profile DTAP,TDAP,TD (1 - Tdap) [facility] Start: 1971 Diabetes mellitus screening Diabetes Screening [facility] Start: 1971 HEPATITIS C SCREENING HEPATITIS C SCREENING [facility] Start: 1971 Hepatitis C screening Hepatitis C Screening [facility] Start: 1953 COVID-19 VACCINE (#1) COVID-19 VACCINE (#1) [facility] Start: 1953 Creatinine measurement Creatinine Level [facility] Start: 1953 Lipid panel Lipid Panel [facility] Start: 1953 Medicare Annual Wellness Visit Medicare Annual Wellness Visit (AWV) [facility] Start: 1953 Potassium measurement Potassium Level [facility] Start: 1953 Screening for malignant neoplasm of colon [facility] End: 07-21-2023 Mri brain brain stem w/o w/contrast material MRI BRAIN WO/W IVCON Radiology Routine Paralytic strabismus 1 Occurrences starting 06/21/2022 until 07/21/2023 [facility] Work Phone: Comment on above: 1 Occurrences starting 06/21/2022 until 07/21/2023 End: 07-21-2023 Mri orbit face & neck w/o & w/contrast matrl MRI SOFT TISSUE NECK WO/W IVCON Radiology Routine 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 until 07/21/2023 [facility] Work Phone: Comment on above: 1 Occurrences starting 06/21/2022 until 07/21/2023 Patient Education COPD Exacerbat ion, Adult ED [facility] Work Phone: Patient referral [facility] Work Phone: [facility] Immunizations Immunization Date Immunization Notes Care Provider Fa cili 04-16-2019 Seasonal trivalent influenza vaccine, adjuvanted, preservative free Sera Flower Work Phone: [place] [address] DO Work Phone: 04-16-2019 influenza virus vacc ine, unspecified formulation Rene Castro MD Work Phone: [facility] Work Phone: 03-28-2019 influenza virus vacc ine, unspecified formulation Sera Flower Work Phone: [place] [address] DO Work Phone: 08-16-2018 influenza, seasonal, injectable, preservative free Sera Flower Work Phone: [place] [address] DO Work Phone: 08-16-2018 pneumococcal conjuga te vaccine, 13 valent Sera Flower Work Phone: [facility] [place] [employer] DO Work Phone: 05-28-2018 pneumococcal polysaccharide vaccine, 23 valent Sera Flower Work Phone: [place] [address] DO Work Phone: 08-10-2017 tetanus toxoid, redu daniel diphtheria toxoid, and acellular pertussis vaccine, adsorbed Sera Flower Work Phone: [place] [address] DO Work Phone: 12-21-2016 zoster vaccine, live Sera Flower Work Phone: [place] [address] DO Work Phone: 09-30-2012 pneumococcal polysaccharide vaccine, 23 valent Sera Flower Work Phone: [place] [address] DO Work Phone: 09-30-2012 pneumococcal vaccine , unspecified formulation Hosea Sifuentes DO Work Phone: [facility] 05-28-2010 influenza virus vacc ine, unspecified formulation Rene Castro MD Work Phone: [facility] Work Phone: 03-28-2010 influenza, seasonal, injectable, preservative free Rene Castro MD Work Phone: [facility] Work Phone: 2007 TD(adult) unspecifie d formulation Hosea Sifuentes DO Work Phone: [facility] influenza virus vacc ine, unspecified formulation Sera Flower Work Phone: [place] [address] DO Work Phone: Comment on above: Mar 20102010 Payers Date Payer Category Payer Private Health Insurance HUMANA HUMANA HMO/POS [id number] 2023-Present [address] [address] [place] [address] [id number] 2023 Self-pay [id number] 2022 Department of [facility] e ( and others) [id number] 2022 [employer] ( and others) [id number] 2022 Medicare [id number] 2021 [employer] ( and others) [id number] 2021 Unknown 2017 Medicare [id number] 2017 Medicare [id number] 1953 Unknown [id number] [id number]. 356 1953 Unknown [id number] 2.16.840.1.699093.3.579.2. 356 1953 Unknown [id number] 2.16.840.1.681341.3.579.2. 1068 1953 Unknown [id number] 2.16.840.1.197720.3.579.2. 1068 1953 Unknown [id number] 2.16.840.1.442404.3.579.2. 1259 1953 Unknown [id number] 2.16.840.1.661943.3.579.2. 1259 1953 Unknown [id number] 2.16.840.1.641854.3.579.2. 1259 1953 Unknown [id number] 2.16.840.1.639378.3.579.2. 1259 1953 Unknown [id number] 2.16.840.1.010656.3.579.2. 1259 1953 Unknown [id number] 2.16.840.1.478768.3.579.2. 1259 1953 Unknown [id number] 2.16.840.1.892204.3.579.2. 1259 1953 Unknown [id number] 2.16.840.1.757702.3.579.2. 1244 1953 Unknown [id number] 2.16.840.1.897024.3.579.2. 1244 [employer] ( and others) [id number] Unknown [id number] [id number]. 531 Unknown [id number] [id number]. 531 Social History Date Type Detail Facility Start: 03-23-2023 End: 10-18-2023 No alcohol use No alcohol use [facility] [place] 250 DO Work Phone: Comment on above: 5 CUPS OF COFFEE ANICETO LY; QUIT IN 1984; Start: 05-01-2022 End: 06-14-2023 Tobacco smoking status [facility] Never smoked tobacco [facility] Start: 05-01-2022 End: 10-18-2023 Tobacco use and exposure Smokeless tobacco non-user [facility] Start: 05-01-2022 End: 11-14-2022 Alcohol intake Ex-drinker (finding) [facility] Start: 1955 Sex Assigned At Not on file C [facility] Start: 10-15-2020 End: 10-18-2023 Tobacco smoking status ILIS Ex-smoker (finding) [facility] Start: 1955 Sex Assigned At Male F [facility] End: 05-28-1992 History of tobacco use Current smoker [facility] Work Phone: End: 05-28-1992 History of tobacco use Cigarette Smoker [facility] Work Phone: Start: 03-23-2023 End: 10-18-2023 Alcohol intake Lifetime non-drinker (finding) [facility] Work Phone: Start: 03-23-2023 End: 10-18-2023 Tobacco use panel [facility] Work Phone: Start: 03-13-2023 End: 10-18-2023 Exposure to SARS-CoV-2 (event) Not sure [facility] Start: 03-14-2023 Alcohol Comment caffeine: coff ee 5-6 cups a day [facility] Start: 11-13-2022 Gender identity Identifies as male gender (finding) [facility] Clinical Notes 05-01-2022 to 10-18-2023 Rene [...] emphasis on low-calorie diet Rene Castro MD, [facility] Review of Systems All other systems reviewed [...] , Rfl: omega-3 fatty acids-fish oil (One-Per-Day Oto-3) 684-1,200 mg capsule, Take as directed, Disp: [...] 3 Assessment/Plan 1. Coronary artery disease involving kaibab coronary artery of kaibab heart without angina pectoris Follow Up In [...] discussion and plan. documented in this encounter [facility] Work Phone: 10-18-2023 Instructions Ana Cunningham LPN [...] up 6 months documented in this encounter [facility] Work Phone: 06-30-2023 History of Presen t [...] x 3 days documented in this encounter [facility] 03-23-2023 History of Presen t illness [...] emphasis on low-calorie diet Rene Castro MD, [facility] Review of Systems All other systems reviewed [...] , Rfl: omega-3 fatty acids-fish oil (One-Per-Day Oto-3) 684-1,200 mg capsule, Take as directed, Disp: [...] Rfl: Assessment/Plan 1. Coronary artery disease involving kaibab coronary artery of kaibab heart without angina pectoris Follow Up In [...] Aminotransferase Alanine Aminotransferase documented in this encounter [facility] Work Phone: 03-23-2023 Instructions Millie Hoffmann CMA [...] of your visit. documented in this encounter [facility] Work Phone: 11-14-2022 Note HNO ID: [id number] Author: Deandra Bender MD Service: ? Author [...] or facial palsy H/o Botox injections in [place]-->didn't help No h/o trauma H/o sinus surgery [...] can I get the FL-41 filter? Any [facility] location, (with an optical shop), throughout [place], Email: [email or web address] [employer] in [place], [place], [facility] in [place], [place], [facility] in [place], [place], [facility] in [place], [place], www.[employer] F/u Botulinum toxin 3 months, Botulinum toxin [...] Bender MD, November 14, 2022 10:00 AM. [facility] 11-14-2022 History of Presen t illness Narrative Here for botox Right eye just started twitching Tears as needed. -rofPatient still having twitching right eye and occasionally the left. Refresh tears four times a day. -rof A/P: Right hemifacial spasm x 2 years Patient doesn't remember h/o bells or facial palsy H/o Botox injections in [place]-->didn't help No h/o trauma H/o sinus surgery [...] can I get the FL-41 filter? Any [facility] location, (with an optical shop), throughout [place], Email: [email or web address] [employer] in [place], [place], [facility] [facility] [employer] [facility] in [place], [place], [facility] in [place], [place], [employer] in [place], [place], www.[employer] F/u Botulinum toxin 3 months, Botulinum toxin [...] others. I have seen and examined Demarcus Panchla. I have discussed the case and the [...] 2022 10:00 AM. documented in this encounter [facility] 08-08-2022 Note HNO ID: [id number] Author: Deandra Bender MD Service: ? Author [...] Bender MD, August 08, 2022 3:05 PM. [facility] 08-08-2022 History of Presen t illness Narrative Patient still having twitching right eye and occasionally the left. Refresh tears four times a day. -rof A/P: Right hemifacial spasm x 2 years Patient doesn't remember h/o bells or facial palsy H/o Botox injections in [place]-->didn't help No h/o trauma H/o sinus surgery [...] 2022 3:05 PM. documented in this encounter [facility] 08-08-2022 Instructions Deandra Bender MD - [...] Recheck next visit documented in this encounter [facility] 06-21-2022 Miscellaneous Notes Notes and MRI orders faxed to [facility]. [facility] today. : 1955 Allergies: Codeine, Codeine-Guaifenesin, and Guaifenesin (home) [phone] (cell) Reason for call: Sasha F:[phone] Asking for the MRI orders and office notes to be faxed over to [facility]. Patient will be having them done there. Patient last appointment: Visit date not found The patients preferred pharmacy has been captured for this encounter? not asked Delores Mccollum documented in this encounter [facility] 06-21-2022 Note HNO ID: [id number] Author: Deandra Bender MD Service: ? Author Type: Physician Type: Progress Notes Filed: 06/21/2022 9:08 AM Note Text: Twitching right eye x two years. Both upper and lower lid. Trouble reading because of it. +tearing and burning. Refresh four times a day. -rof A/P: Right hemifacial spasm x 2 years Patient doesn't remember h/o bells or facial palsy H/o Botox injections in [place]-->didn't help No h/o trauma H/o sinus surgery [...] Bender MD, June 21, 2022 9:05 AM. [facility] 06-21-2022 Instructions Deandra Bender MD - 06/21/2022 [...] and get MRI documented in this encounter [facility] 06-21-2022 History of Presen t illness Narrative Twitching right eye x two years. Both upper and lower lid. Trouble reading because of it. +tearing and burning. Refresh four times a day. -rof A/P: Right hemifacial spasm x 2 years Patient doesn't remember h/o bells or facial palsy H/o Botox injections in [place]-->didn't help No h/o trauma H/o sinus surgery [...] 2022 9:05 AM. documented in this encounter [facility] 05-01-2022 Note HNO ID: [id number] Author: Mau Randle OD Service: ? Author Type: OUTDOOR ADVENTURE LEADER Type: Progress Notes Filed: 05/01/2022 9:22 AM [...] of its relevant components. 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 [facility] Diagnosis Clonic hemifacial spasm, right- Primary [facility]* Diagnosis Clonic hemifacial spasm, right- Primary [facility] noteNo assessment information availableC[facility] Work Phone: Evaluation note* Diagnosis Coronary artery disease involving kaibab coronary artery of kaibab heart without angina pectoris Essential hypertension Unspecified essential hypertension Mixed hyperlipidemia Ischemic cardiomyopathy Other specified forms of chronic ischemic heart disease Status post coronary artery stent placement Postsurgical percutaneous transluminal coronary angioplasty status Class 2 obesity with body mass index (BMI) of 35.0 to 35.9 in adult, unspecified obesity type, unspecified whether serious comorbidity present documented in this encounter [facility] Work Phone: Evaluation note* Diagnosis Acute exacerbation of chronic obstructive pulmonary disease (CMS/HCC)- Primary Obstructive chronic bronchitis with exacerbation [facility] Diagnosis Coronary artery disease involving kaibab coronary artery of kaibab heart without angina pectoris- Primary Essential hypertension [...] hazards to health documented in this encounter [facility] Work Phone: Hospital Discharge instructions Additional Instructions If your symptoms return/worsen or you develop any further concerns or symptoms please see your doctor or return to the emergency department immediately.[facility] Work Phone: Reason for referral (narrative)* Consultation (Routine) - Authorized Specialty Diagnoses / Procedures Referred By Contac t Referred To Contact Cardiology Diagnoses Coronary artery disease involving kaibab coronary artery of kaibab heart without angina pectoris Essential hypertension Mixed hyperlipidemia Ischemic cardiomyopathy Status post coronary artery stent placement Class 2 obesity with body mass index (BMI) of 35.0 to 35.9 in adult, unspecified obesity type, unspecified whether serious comorbidity present Procedures Follow Up In Cardiology Rene Castro MD [facility] [address] [place] [address] Rene Castro MD [address] [place] [address] [address] [place] [address] Referral ID Status Reason Start Date Expiration Date V isits Requested Visits Authorized [id number] Authorized 03/23/2023 03/22/2024 1 1 [facility] Work Phone: [id number] for referral (narrative)* Consultation (Routine) - Authorized Specialty Diagnoses / Procedures Referred By Contac t Referred To Contact Cardiology Diagnoses Coronary artery disease involving kaibab coronary artery of kaibab heart without angina pectoris Procedures Follow Up In Cardiology Rene Castro MD [address] [place] [address] Rene Castro MD [address] [place] [address] Referral ID Status Reason Start Date Expiration Date V isits Requested Visits Authorized [id number] Authorized 10/18/2023 10/17/2024 1 1 [facility] Work Phone: Chief Complaint * DEMARCUS [...] infarction with no ischemia. EF in the [id number]. He remains compensated as for ischemic cardiomyopathy. [...] on low-calorie diet * Rene Castro MD, [facility] Family History No Family History Records [...] W/O & W/CONTRAST Deandra Troncoso MD [address] [place] [address] Mr Imaging Referral ID Status Reason Start Date Expiration Date Visits Requested Visits Authorized [id number] Pending Review Auto-Generat ed Referral 06/21/2022 07/21/2023 1 1 Specialty Diagnoses / Procedures Referred By Contac t Referred To Contact MR IMAGING Diagnoses Paralytic strabismus Procedures MRI BRAIN WO/W IVCON MRI BRAIN BRAIN STEM W/O W/CONTRAST MATERIAL Deandra Bender MD [address] [place] [address] Mr Imaging Referral ID Status Reason Start Date Expiration Date Visits Requested Visits Authorized [id number] Pending Review Auto-Generat ed Referral 06/21/2022 07/21/2023 [...] or prosecute any alcohol or drug abuse patient.[facility] the event this information is protected by the Federal Confidentiality of Alcohol and Drug Abuse Patient Records regulations: The Federal rules restrict any use of the information to criminally investigate or prosecute any alcohol or drug abuse patient.[facility] the event this information is protected by the Federal Confidentiality of Alcohol and Drug Abuse Patient Records regulations: The Federal rules restrict any use of the information to criminally investigate or prosecute any alcohol or drug abuse patient.[facility] the event this information is protected by the Federal Confidentiality of Alcohol and Drug Abuse Patient Records regulations: The Federal rules restrict any use of the information to criminally investigate or prosecute any alcohol or drug abuse patient.[facility] the event this information is protected by the Federal Confidentiality of Alcohol and Drug Abuse Patient Records regulations: The Federal rules restrict any use of the information to criminally investigate or prosecute any alcohol or drug abuse patient.[facility] Reason for Visit (unrecogniz ed section [...] , up to 100 units Procedures BOTOX [id number] [place] [address] [place] [address] Deandra Bender MD [address] [place] [address] Referral ID Status Reason Start Date Expiration Date V isits Requested Visits Authorized [id number] Authorized 11/14/2022 05/27/2023 99 99 Reason Comments Follow-up 6 months Reason Comments Follow-up 6m Specialty Diagnoses / Procedures Referred By Contac t Referred To Contact Cardiology Diagnoses Coronary artery disease involving kaibab coronary artery of kaibab heart without angina pectoris Essential hypertension Mixed hyperlipidemia Ischemic cardiomyopathy Status post coronary artery stent placement Class 2 obesity with body mass index (BMI) of 35.0 to 35.9 in adult, unspecified obesity type, unspecified whether serious comorbidity present Procedures Follow Up In Cardiology Rene Castro MD [address] [place] [address] [address], [address] [address] Rene Castro MD [address] [place] [address] [address], [address] [address] Referral ID Status Reason Start Date Expiration Date V isits Requested Visits Authorized [id number] Authorized 03/23/2023 03/22/2024 1 1 (unrecognized sect ion and content) No Status Records FoundNo Status Records FoundNo Status Records FoundNo Status Records FoundNo Status Records FoundNo Status Records FoundNo Status Records FoundNo Status Records Found INFORMATION SOURCE (unrecogn ized section and content) DATE CREATED AUTHOR 07/16/2022 [facility] dical Specialist DATE CREATED AUTHOR AUTHOR'S ORGANIZ ATION 09/09/2022 [employer] DATE CREATED AUTHOR AUTHOR'S ORGANIZ ATION 11/14/2022 [facility] DATE CREATED AUTHOR AUTHOR'S ORGANIZ ATION 02/12/2023 [facility] ical [facility] DATE CREATED AUTHOR AUTHOR'S ORGANIZ ATION 02/28/2023 [facility] DATE CREATED AUTHOR AUTHOR'S ORGANIZ ATION 06/25/2023 [facility] DATE CREATED AUTHOR AUTHOR'S ORGANIZ ATION 01/03/2024 [facility] d[facility] Specialists EPIC DATE CREATED AUTHOR AUTHOR'S ORGANIZ ATION 01/04/2024 [facility] [employer] (unrecognized sec tion and content) Team Status: Active Member Role Status Dates Sera Flower MD Primary Care Provider Active Team Status: Inactive Member Role Status Dates Sera Flower MD Primary Care Provider, Other Provider Active Rene Castro MD Attending Provider Active Patient Flow Coordinator Relationship Specialty Start Date End Date Sera Flower MD [address] [place] [address] PCP - General 02/16/21 Team Status: Inactive Member Role Status Dates Sera Flower MD Primary Care Provider Active St art: June 14, 2023 End: June 14, 2023 Jasper Martinez DO Emergency Provider Active Start: June 14, 2023 End: June 14, 2023 Patient Flow Coordinator Relationship Specialty Start Date End Date Sera Flower MD [address] [place] [address] PCP - [employer] 1/1/23 Sera Flower MD [address] [place] [address] PCP - General Internal Medicine 10/03/22 Patient Flow Coordinator Relationship Specialty Start Date End Date Sera Flower MD [address] [place] [id number] PCP - General 02/16/21 Goals (unrecognized section [...] BE BASED ON THE PRIMARY CLINICAL RECORDS. [facility] Pets are family too [facility]. provides no warranty or guarantee of the accuracy or completeness of information in this document.
[2024-02-15 16:01] VITALS: PULSE 92
[2024-02-15] MEDS: 0.9 % SODIUM CHLORIDE 1,000 ML 200 ML IV ×2 (16:15→20:48)
[2024-02-15 16:21] LABS: Hematocrit 40.4 % (42.0-54.0); Hemoglobin 14.2 g/dL (14.0-18.0); Mean Corpuscular HGB Conc 35.1 g/dL (29.9-35.2); Mean Corpuscular Hemoglobin 29.6 pg (25.9-34.0); Mean Corpuscular Volume 84.2 fL (80.0-94.0); Mean Platelet Volume 10.5 fL (9.5-13.5); Platelet Count 146 10^3/uL (150-450); Red Cell Distribution Width 14.1 % (11.0-15.0); White Blood Count 25.8 10^3/uL (4.0-11.0)
[2024-02-15 16:22] LABS: Bilirubin Urine NEGATIVE (NEGATIVE); Blood Urine NEGATIVE (NEGATIVE); Clarity Urine CLEAR (CLEAR); Color Urine LT. YELLOW (YELLOW); Glucose Urine UA NEGATIVE (NEGATIVE); Ketones Urine NEGATIVE (NEGATIVE); Leukocyte Esterase Urine SMALL (NEGATIVE); Nitrite Urine NEGATIVE (NEGATIVE); Protein Urine NEGATIVE (NEG/TRACE); Urobilinogen Urine 0.2 EU/dL (0.2-1.0); pH Urine 6.5 (5.0-9.0)
[2024-02-15 16:30] VITALS: PULSE 93; O2SAT 96
[2024-02-15 16:30] LABS: Bacteria Urine TRACE #/HPF (NONE SEEN); Cast Seen? NONE SEEN #/LPF (NONE SEEN); Crystals Seen? None Seen #/HPF (None Seen); Mucus Urine TRACE (NONE SEEN); RBC Urine 0-2 #/HPF (0-2); Squamous Epithelial Cell Urine RARE #/LPF (NONE/RARE); Urine Culture Indicated YES
[2024-02-15 16:33] LABS: Internal Control Within Normal Limits; SARS-CoV-2 Ag NEGATIVE (NEGATIVE)
[2024-02-15 16:35] LABS: Lymphocytes Absolute Manual 0.77 10^3/uL (1.20-3.80); Monocytes Absolute Manual 2.32 10^3/uL (0.30-0.80); Segmented Neut Absolute Manual 21.67 10^3/uL (1.4-6.5)
[2024-02-15 16:46] LABS: Anion Gap 12.9; BUN Creatinine Ratio 10.8; Calcium 8.4 mg/dL (8.5-10.1); Carbon Dioxide 24.8 mmol/L (21.0-32.0); Chloride 95 mmol/L (98-107); Estimated GFR (African America >60 (>=60); Estimated GFR (Non-African Ame >60 (>=60); Glucose 121 mg/dL (74-106); Potassium 3.7 mmol/L (3.5-5.1); Sodium 129 mmol/L (136-145)
--- OUTSIDE RECORDS SUMMARY | 2024-02-15 18:07 | XMS_ITS | CCD ---
Author Organization [facility] Care Team Providers Care Meal Attendant Name Role Phone Sera Flower Unavailable [...] Care Provider DO Jasper Martinez Emergency Provider [phone] Jasper Martinez Admitting Unavailable Jasper Martinez Attending Unavailable Sera Flower Primary Care Unavailable Rene Castro Attending Unavailable Sera Flower Primary Care Unavailable Sera Flower Consulting Rene Sauer Admitting Unavailable Sera Flower MD Unavailable Sera Flower MD Primary Care Provider [phone] RENZO WEAVER Attending Unavailable SERA FLOWER Referring [...] 6 Vomiting, Unknown, Nausea And Vomiting, Other [facility] (6 sources) Codeine / guaiFENesin; Translations: [CODEINE-GUAIFEN ESIN] Drug Allergy 1 Other: See Comments [facility] (6 sources) guaiFENesin; Translations: [GUAIFENESIN] Drug Allergy 3 Other: See Comments [facility] (1 source) Codeine Drug Allergy 4 [facility] (2 sources) guaiFENesin Drug Allergy 3 Other [facility] Medications Current Medications Medication Drug Class(es) Dates Sig (Normalized) Sig (Original) albuterol 0.83 mg/ml inhalation solution (14 sources) beta2-Adrenergic Agonist Start: 06-21-2023 albuterol (2.5 MG/3ML) 0.083% nebulizer solution Indications: Chronic obstructive pulmonary disease, unspecified COPD type ([facility]) Take 3 mL (2.5 mg) by nebulization [...] 12:00am Start: 01-17-2022 take 1 capsule by [facility] three times daily for cough benzonatate (TESSALON PERLE) 100 mg capsule take 1 capsule by mouth three times a day if needed for cough SWALLOW WHOLE 0 01/17/2022 Active Comment on above: take 1 capsule by [facility] three times a day if needed for [...] t ongue. omega-3 fatty acids-fish oil (One-Per-Day [place]-3) 684-1,200 mg capsule (2 sources) omega-3 fatty acids-fish oil (One-Per-Day [place]-3) 684-1,200 mg capsule Take as directed Active omega-3 fatty ac ids-fish oil (One-Per-Day [place]-3) 684-1,200 mg capsule Take as directed 0 [...] mg by inhalation every eight hours Ipratropium [place] Discontinued 0.5 MG INHALATION Q8H April 26, [...] 0 Refills: 0 Ordered: 07-Sep-2022 DO Active [place] 3 CAPS (2 sources) [place] 3 CAPS MARLEN E DIRECTED. Quantity: 0 [...] aPTT Coag (PPP) [Time] 30.2 s 25.1-36.5 [facility] Comment on above: A hematocrit value g reater than 55% may lead to inaccurate results in coagulation testing. Patients having hematocrit values >55% require a special collection tube for coagulation studies. Please contact the laboratory at [phone] for redraw instructions. Alanine aminotransferase [En zymatic activity/volume] in Serum or PlasmaOrdered By: Jasper Martinez on 06-14-2023 ALT [Catalytic activity/Vol] 37 U/L 7-52 [facility] Albumin [Mass/volume] in Ser um or Plasma by Bromocresol green (BCG) dye binding methoOrdered By: Jasper Martinez on 06-14-2023 Albumin BCG dye [Mass/Vol] 4.1 g/dL 3.5-5.7 [facility] Alkaline phosphatase [Enzyma tic activity/volume] in Serum or PlasmaOrdered By: Jasper Martinez on 06-14-2023 ALP [Catalytic activity/Vol] 59 U/L 34-104 [facility] Aspartate aminotransferase [ Enzymatic activity/volume] in Serum or PlasmaOrdered By: Jasper Martinez on 06-14-2023 AST [Catalytic activity/Vol] 29 U/L 13-39 [facility] B-Type Natriuretic Peptideon 06-14-2023 Natriuretic peptide B (Bld) [Mass/Vol] 67.0 pg/mL Normal 5-100 [facility] Comment on above: Result Comment: PERF ORMED BY: [place] [address] PATHOLOGIST CHIEF NUCLEAR MEDICINE TECHNOLOGIST RAPHAEL RANGEL M.D. Performed By: #### C OVID19 FLU RSV, CEPHEID NEG #### [address] Basophils Auto (Bld) [#/Vol] Ordered By: Jasper Martinez on 06-14-2023 Basophils (Bld) [#/Vol] 0.0 10*3/uL 0.0-0.2 [facility] Basophils/100 WBC Auto (Bld) Ordered By: Jasper Martinez on 06-14-2023 Basophils/100 WBC (Bld) 0.6 % . [facility] Bilirubin.total [Mass/volume ] in Serum or PlasmaOrdered By: Jasper Martinez on 06-14-2023 Bilirubin [Mass/Vol] 0.4 mg/dL 0.3-1.0 [facility] COVID CepheidOrdered By: Asya Martinez on 06-14-2023 SARS-CoV-2 (COVID-19) Ab IA Ql Negative Negative [facility] Comment on above: This is a duplicate Cepheid Xpert Xpress CoV-2/Flu/RSV Plus RNA by RT-PCR result to be used for statistical tracking purpose only. SARS-CoV-2 (COVID-19) RNA VERONA+probe Ql (Unsp spec) [facility] COVID-19 / Flu A/B / RSV [...] or Cepheid Disclaimer revoked sooner. PERFORMED BY: [place] [address] PATHOLOGIST CHIEF NUCLEAR MEDICINE TECHNOLOGIST RAPHAEL RANGEL M.D. Normal [facility] Comment on above: Performed By: #### C OVID19 FLU RSV, CEPHEID NEG #### [place] [id number] [facility] Calcium [Mass/volume] in Ser um or PlasmaOrdered By: Jasper Martinez on 06-14-2023 Calcium [Mass/Vol] 9.0 mg/dL 8.6-10.3 [facility] Carbon dioxide, total [Moles /volume] in Serum or PlasmaOrdered By: Jasper Martinez on 06-14-2023 CO2 [Moles/Vol] 23.4 mmol/L 21.0-31.0 [facility] Cepheid COVID PCR Negativeon 06-14-2023 SARS-CoV-2 (COVID-19) RNA VERONA+probe Ql (Unsp spec) Negative Normal Negative [facility] Comment on above: Result Comment: This is a duplicate Cepheid Xpert Xpress CoV-2/Flu/RSV Plus RNA by RT-PCR result to be used for statistical tracking purpose only. PERFORMED BY: [address] [address] PATHOLOGIST CHIEF NUCLEAR MEDICINE TECHNOLOGIST RAPHAEL RANGEL M.D. Performed By: #### C OVID19 FLU RSV, CEPHEID NEG #### [facility] [address] Chloride [Moles/volume] in S taylor or PlasmaOrdered By: Jasper Martinez on 06-14-2023 Chloride [Moles/Vol] 105 mmol/L 98-107 [facility] Complete Blood Count Auto Di ffon 06-14-2023 Basophils (Bld) [#/Vol] 0.0 10*3/uL Normal 0.0-0.2 [facility] Comment on above: Result Comment: PERF ORMED BY: [place] [address] PATHOLOGIST CHIEF NUCLEAR MEDICINE TECHNOLOGIST RAPHAEL RANGEL M.D. Performed By: #### B PAIN MANAGEMENT PHYSICIAN, CK, MG, CBC, HS TROP, PTT, PT, CMP #### [address] Basophils/100 WBC (Bld) 0.6 % Normal . [facility] Comment on above: Performed By: #### B PAIN MANAGEMENT PHYSICIAN, CK, MG, CBC, HS TROP, PTT, PT, CMP #### [address] Eosinophils (Bld) [#/Vol] 0.8 10*3/uL High 0.0-0.45 [facility] Comment on above: Performed By: #### B PAIN MANAGEMENT PHYSICIAN, CK, MG, CBC, HS TROP, PTT, PT, CMP #### [address] Eosinophils/100 WBC (Bld) 9.6 % Normal . [facility] Comment on above: Performed By: #### B PAIN MANAGEMENT PHYSICIAN, CK, MG, CBC, HS TROP, PTT, PT, CMP #### [address] Erythrocyte distribution width (RBC) [Ratio] 14.4 % Normal 12.0-14.8 [facility] Comment on above: Performed By: #### B PAIN MANAGEMENT PHYSICIAN, CK, MG, CBC, HS TROP, PTT, PT, CMP #### [address] Hematocrit (Bld) [Volume fraction] 40.8 % Normal 38.8-50.0 [facility] Comment on above: Performed By: #### B PAIN MANAGEMENT PHYSICIAN, CK, MG, CBC, HS TROP, PTT, PT, CMP #### [address] Hemoglobin (Bld) [Mass/Vol] 14.3 g/dL Normal 13.0-17.0 [facility] Comment on above: Performed By: #### B PAIN MANAGEMENT PHYSICIAN, CK, MG, CBC, HS TROP, PTT, PT, CMP #### [address] Lymphocytes (Bld) [#/Vol] 1.5 10*3/uL Normal 1.00-4.8 [facility] Comment on above: Performed By: #### B PAIN MANAGEMENT PHYSICIAN, CK, MG, CBC, HS TROP, PTT, PT, CMP #### [address] Lymphocytes/100 WBC (Bld) 18.5 % Normal . [facility] Comment on above: Performed By: #### B PAIN MANAGEMENT PHYSICIAN, CK, MG, CBC, HS TROP, PTT, PT, CMP #### [address] MCH (RBC) [Entitic mass] 30.1 pg Normal 27.5-35.2 [facility] Comment on above: Performed By: #### B PAIN MANAGEMENT PHYSICIAN, CK, MG, CBC, HS TROP, PTT, PT, CMP #### [address] MCV (RBC) [Entitic vol] 86.2 fL Normal 83.5-101 [facility] Comment on above: Performed By: #### B PAIN MANAGEMENT PHYSICIAN, CK, MG, CBC, HS TROP, PTT, PT, CMP #### [address] Mean Corpuscular HGB Conc 34.9 g/dL Normal 32.5-35.6 [facility] Comment on above: Performed By: #### B PAIN MANAGEMENT PHYSICIAN, CK, MG, CBC, HS TROP, PTT, PT, CMP #### [address] Monocytes (Bld) [#/Vol] 0.8 10*3/uL Normal 0.0-0.8 [facility] Comment on above: Performed By: #### B PAIN MANAGEMENT PHYSICIAN, CK, MG, CBC, HS TROP, PTT, PT, CMP #### [address] Monocytes/100 WBC (Bld) 16.39 % Normal 0.00-20.00 [facility] Comment on above: Performed By: #### B PAIN MANAGEMENT PHYSICIAN, CK, MG, CBC, HS TROP, PTT, PT, CMP #### [address] Monocytes/100 WBC (Bld) 10.1 % Normal . [facility] Comment on above: Performed By: #### B PAIN MANAGEMENT PHYSICIAN, CK, MG, CBC, HS TROP, PTT, PT, CMP #### [address] Neutrophils (Bld) [#/Vol] 4.9 10*3/uL Normal 1.8-7.7 [facility] Comment on above: Performed By: #### B PAIN MANAGEMENT PHYSICIAN, CK, MG, CBC, HS TROP, PTT, PT, CMP #### [address] Neutrophils/100 WBC (Bld) 61.2 % Normal . [facility] Comment on above: Performed By: #### B PAIN MANAGEMENT PHYSICIAN, CK, MG, CBC, HS TROP, PTT, PT, CMP #### [address] NRBC% 0.1 /100{WBC} Normal 0-0.5 [facility] Comment on above: Performed By: #### B PAIN MANAGEMENT PHYSICIAN, CK, MG, CBC, HS TROP, PTT, PT, CMP #### [address] Platelet mean volume (Bld) [Entitic vol] 8.4 fL Normal 6.6-10.1 [facility] Comment on above: Performed By: #### B PAIN MANAGEMENT PHYSICIAN, CK, MG, CBC, HS TROP, PTT, PT, CMP #### [facility] [address] Platelets (Bld) [#/Vol] 181 10*3/uL Normal 150-450 [facility] Comment on above: Performed By: #### B PAIN MANAGEMENT PHYSICIAN, CK, MG, CBC, HS TROP, PTT, PT, CMP #### [facility] [address] RBC (Bld) [#/Vol] 4.74 10*6/uL Normal 3.90-5.60 [facility] Comment on above: Performed By: #### B PAIN MANAGEMENT PHYSICIAN, CK, MG, CBC, HS TROP, PTT, PT, CMP #### [address] WBC (Bld) [#/Vol] 8.1 10*3/uL Normal 4.1-10.5 [facility] Comment on above: Performed By: #### B PAIN MANAGEMENT PHYSICIAN, CK, MG, CBC, HS TROP, PTT, PT, CMP #### [facility] [address] Comprehensive Metabolic Pane maria esther 06-14-2023 Albumin [Mass/Vol] 4.1 g/dL Normal 3.5-5.7 [facility] Comment on above: Performed By: #### B PAIN MANAGEMENT PHYSICIAN, CK, MG, CBC, HS TROP, PTT, PT, CMP #### [facility] [address] Albumin/Globulin [Mass ratio] 1.6 {ratio} Normal [facility] Comment on above: Performed By: #### B PAIN MANAGEMENT PHYSICIAN, CK, MG, CBC, HS TROP, PTT, PT, CMP #### [address] ALP [Catalytic activity/Vol] 59 U/L Normal 34-104 [facility] Comment on above: Performed By: #### B PAIN MANAGEMENT PHYSICIAN, CK, MG, CBC, HS TROP, PTT, PT, CMP #### [place] [address] ALT [Catalytic activity/Vol] 37 U/L Normal 7-52 [facility] Comment on above: Performed By: #### B PAIN MANAGEMENT PHYSICIAN, CK, MG, CBC, HS TROP, PTT, PT, CMP #### [address] Anion gap [Moles/Vol] 11.5 mmol/L Normal 6.0-15.0 [facility] Comment on above: Performed By: #### B PAIN MANAGEMENT PHYSICIAN, CK, MG, CBC, HS TROP, PTT, PT, CMP #### [address] AST [Catalytic activity/Vol] 29 U/L Normal 13-39 [facility] Comment on above: Performed By: #### B PAIN MANAGEMENT PHYSICIAN, CK, MG, CBC, HS TROP, PTT, PT, CMP #### [address] Bilirubin [Mass/Vol] 0.4 mg/dL Normal 0.3-1.0 [facility] Comment on above: Performed By: #### B PAIN MANAGEMENT PHYSICIAN, CK, MG, CBC, HS TROP, PTT, PT, CMP #### [address] Calcium [Mass/Vol] 9.0 mg/dL Normal 8.6-10.3 [facility] Comment on above: Performed By: #### B PAIN MANAGEMENT PHYSICIAN, CK, MG, CBC, HS TROP, PTT, PT, CMP #### [address] Chloride [Moles/Vol] 105 mmol/L Normal 98-107 [facility] Comment on above: Performed By: #### B PAIN MANAGEMENT PHYSICIAN, CK, MG, CBC, HS TROP, PTT, PT, CMP #### [address] CO2 [Moles/Vol] 23.4 mmol/L Normal 21.0-31.0 [facility] Comment on above: Performed By: #### B PAIN MANAGEMENT PHYSICIAN, CK, MG, CBC, HS TROP, PTT, PT, CMP #### [facility] [address] Creatinine [Mass/Vol] 0.89 mg/dL Normal 0.70-1.30 [facility] Comment on above: Performed By: #### B PAIN MANAGEMENT PHYSICIAN, CK, MG, CBC, HS TROP, PTT, PT, CMP #### [facility] [address] Creatinine Clr Calc Pharmacy 92.42 [facility] Comment on above: Performed By: #### B PAIN MANAGEMENT PHYSICIAN, CK, MG, CBC, HS TROP, PTT, PT, CMP #### [facility] [address] GFR/1.73 sq M.predicted MDRD (S/P/Bld) [Vol rate/Area] mL/min/{1.73_m2} [facility] Comment on above: Performed By: #### B PAIN MANAGEMENT PHYSICIAN, CK, MG, CBC, HS TROP, PTT, PT, CMP #### [address] Globulin (S) [Mass/Vol] 2.5 g/dL [facility] Comment on above: Performed By: #### B PAIN MANAGEMENT PHYSICIAN, CK, MG, CBC, HS TROP, PTT, PT, CMP #### [address] Glucose [Mass/Vol] 144 mg/dL High 70-100 [facility] Comment on above: Result Comment: [facility] Glucose Reference Range is dependent on time and content of last meal. Glucose of more than 200 mg/dL in a nonstressed, ambulatory subject supports the diagnosis of Diabetes Mellitus. ADA recommended reference range Performed By: #### B PAIN MANAGEMENT PHYSICIAN, CK, MG, CBC, HS TROP, PTT, PT, CMP #### [address] Potassium [Moles/Vol] 3.9 mmol/L Normal 3.5-5.1 [facility] Comment on above: Performed By: #### B PAIN MANAGEMENT PHYSICIAN, CK, MG, CBC, HS TROP, PTT, PT, CMP #### [address] [place] [address] [place] Protein [Mass/Vol] 6.6 g/dL Normal 6.4-8.9 [facility] Comment on above: Performed By: #### B PAIN MANAGEMENT PHYSICIAN, CK, MG, CBC, HS TROP, PTT, PT, CMP #### [facility] [address] Sodium [Moles/Vol] 136 mmol/L Normal 136-145 [facility] Comment on above: Performed By: #### B PAIN MANAGEMENT PHYSICIAN, CK, MG, CBC, HS TROP, PTT, PT, CMP #### [facility] [address] Urea nitrogen [Mass/Vol] 12 mg/dL Normal 7-25 [facility] Comment on above: Performed By: #### B PAIN MANAGEMENT PHYSICIAN, CK, MG, CBC, HS TROP, PTT, PT, CMP #### [facility] [address] Creatine Kinaseon 06-14-2023 CK [Catalytic activity/Vol] 185 U/L Normal 30-223 [facility] Comment on above: Performed By: #### C OVID19 FLU RSV, CEPHEID NEG #### [address] Creatine kinase [Enzymatic a ctivity/volume] in Serum or PlasmaOrdered By: Jasper Martinez on 06-14-2023 CK [Catalytic activity/Vol] 185 U/L 30-223 [facility] Creatinine [Mass/volume] in Serum or PlasmaOrdered By: Jasper Martinez on 06-14-2023 Creatinine [Mass/Vol] 0.89 mg/dL 0.70-1.30 [facility] ECG 12 lead ECGon 06-14-2023 ECG 12 lead ECG [facility] [place] [address] [place] [address] Electrocardiograph Report Signed Patient: Demarcus Panchal MR#: [id number] : 1955 Acct:[id number] Age/Sex: 68 / M ADM Date: 06/14/23 Loc: ER Room: Type: [facility] ER Attending Dr: Ordering Provider: [...] sinus rhythm Confirmed by Jasper MARTINEZ DO ([id number]) on 06/14/2023 2:25:14 PM Referred By: Electronically Signed By:Jasper MARTINEZ DO Transcribed By: MUS Signed By Jasper Martinez DO 0 06/14/23 1425 Normal [facility] Eosinophils Auto (Bld) [#/Vo l]Ordered By: Jasper Martinez on 06-14-2023 Eosinophils (Bld) [#/Vol] 0.8 10*3/uL 0.0-0.45 [facility] Eosinophils/100 WBC Auto (Bl d)Ordered By: Jasper Martinez on 06-14-2023 Eosinophils/100 WBC (Bld) 9.6 % . [facility] Erythrocyte distribution wid th Auto (RBC) [Ratio]Ordered By: Jasper Martinez on 06-14-2023 Erythrocyte distribution width (RBC) [Ratio] 14.4 % 12.0-14.8 [facility] Globulin Calc (S) [Mass/Vol] Ordered By: Jasper Martinez on 06-14-2023 Globulin (S) [Mass/Vol] 2.5 g/dL [facility] Glucose [Mass/volume] in Ser um or PlasmaOrdered By: Jasper Martinez on 06-14-2023 Glucose [Mass/Vol] 144 mg/dL 70-100 [facility] Comment on above: ADA recommended refe rence rangeRandom Glucose Reference Range is dependent on time and content of last meal. Glucose of more than 200 mg/dL in a nonstressed, ambulatory subject supports the diagnosis of Diabetes Mellitus. Hematocrit Auto (Bld) [Volum e fraction]Ordered By: Jasper Martinez on 06-14-2023 Hematocrit (Bld) [Volume fraction] 40.8 % 38.8-50.0 [facility] Hemoglobin [Mass/volume] in BloodOrdered By: Jasper Martinez on 06-14-2023 Hemoglobin (Bld) [Mass/Vol] 14.3 g/dL 13.0-17.0 [facility] INR in Platelet poor plasma by Coagulation assayOrdered By: Jasper Martinez on 06-14-2023 INR Coag (PPP) [Relative time] 1.1 {INR} [facility] Comment on above: INR Therapeutic Rang [...] Auto (Bld) [#/Vol] 8.1 10*3/uL 4.1-10.5 [facility] Lymphocytes Auto (Bld) [#/Vo l]Ordered By: Jasper Martinez on 06-14-2023 Lymphocytes (Bld) [#/Vol] 1.5 10*3/uL 1.00-4.8 [facility] Lymphocytes/100 WBC Auto (Bl d)Ordered By: Jasper Martinez on 06-14-2023 Lymphocytes/100 WBC (Bld) 18.5 % . [facility] MCH Auto (RBC) [Entitic mass ]Ordered By: Jasper Martinez on 06-14-2023 MCH (RBC) [Entitic mass] 30.1 pg 27.5-35.2 [facility] MCHC Auto (RBC) [Mass/Vol]Or dered By: Jasper Martinez on 06-14-2023 MCHC (RBC) [Mass/Vol] 34.9 g/dL 32.5-35.6 [facility] MCV Auto (RBC) [Entitic vol] Ordered By: Jasper Martinez on 06-14-2023 MCV (RBC) [Entitic vol] 86.2 fL 83.5-101 [facility] Magnesiumon 06-14-2023 Magnesium [Mass/Vol] 2.0 mg/dL Normal 1.9-2.7 [facility] Comment on above: Result Comment: PERF ORMED BY: [facility] [address] [place] [address] PATHOLOGIST CHIEF NUCLEAR MEDICINE TECHNOLOGIST RAPHAEL RANGEL M.D. Performed By: #### B PAIN MANAGEMENT PHYSICIAN, CK, MG, CBC, HS TROP, PTT, PT, CMP #### [facility] [address] [place] [id number] [facility] Magnesium [Mass/volume] in S taylor or PlasmaOrdered By: Jasper Martinez on 06-14-2023 Magnesium [Mass/Vol] 2.0 mg/dL 1.9-2.7 [facility] Monocyte distribution width [Entitic volume] in Blood by AutomatedOrdered By: Jasper Martinez on 06-14-2023 Monocyte distribution width Auto (Bld) [Entitic vol] 16.39 % 0.00-20.00 [facility] Monocytes Auto (Bld) [#/Vol] Ordered By: Jasper Martinez on 06-14-2023 Monocytes (Bld) [#/Vol] 0.8 10*3/uL 0.0-0.8 [facility] Monocytes/100 WBC Auto (Bld) Ordered By: Jasper Martinez on 06-14-2023 Monocytes/100 WBC (Bld) 10.1 % . [facility] Natriuretic peptide B [Mass/ Vol]Ordered By: Jasper Martinez on 06-14-2023 Natriuretic peptide B (Bld) [Mass/Vol] 67.0 pg/mL 5-100 [facility] Neutrophils Auto (Bld) [#/Vo l]Ordered By: Jasper Martinez on 06-14-2023 Neutrophils (Bld) [#/Vol] 4.9 10*3/uL 1.8-7.7 [facility] Neutrophils/100 WBC Auto (Bl d)Ordered By: Jasper Martinez on 06-14-2023 Neutrophils/100 WBC (Bld) 61.2 % . [facility] No Panel InformationOrdered By: Jasper Martinez on 06-14-2023 Estimated GFR (CKD-EPI) > 60.0 mL/Min [facility] Creatinine Clearance (Chem 92.42 [facility] Nucleated erythrocytes [Pres ence] in Blood by Automated countOrdered By: Jasper Martinez on 06-14-2023 Nucleated RBC Auto Ql (Bld) 0.1 /100{WBC} 0-0.5 [facility] Partial Thromboplastin Timeo n 06-14-2023 aPTT Coag (Bld) [Time] 30.2 s Normal 25.1-36.5 [facility] Comment on above: Result Comment: A he matocrit value greater than 55% may lead to inaccurate results in coagulation testing. Patients having hematocrit values >55% require a special collection tube for coagulation studies. Please contact the laboratory at [phone] for redraw instructions. PERFORMED BY: [place] [address] PATHOLOGIST CHIEF NUCLEAR MEDICINE TECHNOLOGIST RAPHAEL RANGEL M.D. Performed By: #### C OVID19 FLU RSV, CEPHEID NEG #### [address] Platelet mean volume Auto (B ld) [Entitic vol]Ordered By: Jasper Martinez on 06-14-2023 Platelet mean volume (Bld) [Entitic vol] 8.4 fL 6.6-10.1 [facility] Platelets Auto (Bld) [#/Vol] Ordered By: Jasper Martinez on 06-14-2023 Platelets (Bld) [#/Vol] 181 10*3/uL 150-450 [facility] Potassium [Moles/volume] in Serum or PlasmaOrdered By: Jasper Martinez on 06-14-2023 Potassium [Moles/Vol] 3.9 mmol/L 3.5-5.1 [facility] Protein [Mass/volume] in Ser um or PlasmaOrdered By: Jasper Martinez on 06-14-2023 Protein [Mass/Vol] 6.6 g/dL 6.4-8.9 [facility] Prothrombin Time INRon 06-14 INR Coag (PPP) [Relative time] 1.1 {INR} Normal [facility] Comment on above: Result Comment: INR [...] 3 - 4.5 Performed By: #### B PAIN MANAGEMENT PHYSICIAN, CK, MG, CBC, HS TROP, PTT, PT, CMP #### [facility] [address] [place] [id number] [facility] PT Coag (PPP) [Time] 12.1 s Normal 9.0-12.9 [facility] Comment on above: Result Comment: A he matocrit value greater than 55% may lead to inaccurate results in coagulation testing. Patients having hematocrit values >55% require a special collection tube for coagulation studies. Please contact the laboratory at [phone] for redraw instructions. Performed By: #### B PAIN MANAGEMENT PHYSICIAN, CK, MG, CBC, HS TROP, PTT, PT, CMP #### [facility] [address] [place] [id number] [facility] Prothrombin time (PT)Ordered By: Jasper Martinez on 06-14-2023 PT Coag (PPP) [Time] 12.1 s 9.0-12.9 [facility] Comment on above: A hematocrit value g reater than 55% may lead to inaccurate results in coagulation testing. Patients having hematocrit values >55% require a special collection tube for coagulation studies. Please contact the laboratory at [phone] for redraw instructions. RBC Auto (Bld) [#/Vol]Ordere d By: Jasper Martniez on 06-14-2023 RBC (Bld) [#/Vol] 4.74 10*6/uL 3.90-5.60 [facility] Serum or plasma albumin/glob ulin mass ratioOrdered By: Jasper Martinez on 06-14-2023 Albumin/Globulin [Mass ratio] 1.6 {ratio} [facility] Serum or plasma anion gap de terminationOrdered By: Jasper Martinez on 06-14-2023 Anion gap [Moles/Vol] 11.5 mmol/L 6.0-15.0 [facility] Sodium [Moles/volume] in Ser um or PlasmaOrdered By: Jasper Martinez on 06-14-2023 Sodium [Moles/Vol] 136 mmol/L 136-145 [facility] Troponin I High Sensitivityo n 06-14-2023 Troponin I High Sensitivity 26.8 pg/mL High 0.0-20.0 [facility] Comment on above: Result Comment: PERF ORMED BY: [place] [address] PATHOLOGIST CHIEF NUCLEAR MEDICINE TECHNOLOGIST RAPHAEL RANGEL M.D. Performed By: #### C OVID19 FLU RSV, CEPHEID NEG #### [facility] [address] Troponin I.cardiac [Mass/vol ume] in Serum or Plasma by Detection limit <= 0.01 ng/Ordered By: Jasper Martinez on 06-14-2023 Troponin I.cardiac DL <= 0.01 ng/mL [Mass/Vol] 26.8 pg/mL 0.0-20.0 [facility] Urea nitrogen [Mass/volume] in Serum or PlasmaOrdered By: Jasper Martinez on 06-14-2023 Urea nitrogen [Mass/Vol] 12 mg/dL 7-25 [facility] WBC Auto (Bld) [#/Vol]Ordere d By: Jasper Martinez on 06-14-2023 WBC (Bld) [#/Vol] 8.1 10*3/uL 4.1-10.5 [facility] XR chest 2V*on 06-14-2023 XR chest 2V* [facility] [address] [place] [address] XRay Report Signed Patient: Demarcus Panchal MR#: [id number] 652 : 1955 Acct:[id number] Age/Sex: 68 / M ADM Date: 06/14/23 Loc: ER Room: Type: [facility] ER Attending Dr: Copies to: [...] Salvador Nguyễn M.D.06/14/2023 1:59 PM Dictation Location: [facility]- Transcribed By: [facility] 06/14/23 1359 Dictated By: Salvador Nguyễn DO 06/14/23 1354 Signed By: 06/14/23 1359 Normal [facility] Cardiac echo study Procedure on 03-20-2023 Ordered by an unspec ified provider. [facility] Alanine aminotransferase [En zymatic activity/volume] in Serum or PlasmaOrdered By: Sera Flower on 02-05-2023 ALT [Catalytic activity/Vol] 51 U/L 7-52 [facility] Albumin [Mass/volume] in Ser um or Plasma by Bromocresol green (BCG) dye binding methoOrdered By: Sera Flower on 02-05-2023 Albumin BCG dye [Mass/Vol] 4.4 g/dL 3.5-5.7 [facility] Alkaline phosphatase [Enzyma tic activity/volume] in Serum or PlasmaOrdered By: Sera Flower on 02-05-2023 ALP [Catalytic activity/Vol] 61 U/L 34-104 [facility] Aspartate aminotransferase [ Enzymatic activity/volume] in Serum or PlasmaOrdered By: Sera Flower on 02-05-2023 AST [Catalytic activity/Vol] 39 U/L 13-39 [facility] Bilirubin.total [Mass/volume ] in Serum or PlasmaOrdered By: Sera Flower on 02-05-2023 Bilirubin [Mass/Vol] 0.7 mg/dL 0.3-1.0 [facility] Calcium [Mass/volume] in Ser um or PlasmaOrdered By: Sera Flower on 02-05-2023 Calcium [Mass/Vol] 9.1 mg/dL 8.6-10.3 [facility] Carbon dioxide, total [Moles /volume] in Serum or PlasmaOrdered By: Sera Flower on 02-05-2023 CO2 [Moles/Vol] 28.0 mmol/L 21.0-31.0 [facility] Chloride [Moles/volume] in S taylor or PlasmaOrdered By: Sera Flower on 02-05-2023 Chloride [Moles/Vol] 103 mmol/L 98-107 [facility] Comprehensive Metabolic Pane maria esther 02-05-2023 Albumin [Mass/Vol] 4.4 g/dL Normal 3.5-5.7 [facility] Comment on above: Order Comment: PT IS FASTING Performed By: #### C MP #### [facility] [address] Albumin/Globulin [Mass ratio] 2.6 {ratio} Normal [facility] Comment on above: Order Comment: PT IS FASTING Performed By: #### C MP #### [facility] [address] ALP [Catalytic activity/Vol] 61 U/L Normal 34-104 [facility] Comment on above: Order Comment: PT IS FASTING Result Comment: PERF ORMED BY: [place] [address] PATHOLOGIST CHIEF NUCLEAR MEDICINE TECHNOLOGIST RAPHAEL RANGEL M.D. Performed By: #### C MP #### [facility] [address] ALT [Catalytic activity/Vol] 51 U/L Normal 7-52 [facility] Comment on above: Order Comment: PT IS FASTING Performed By: #### C MP #### [facility] [address] Anion gap [Moles/Vol] 11.4 mmol/L Normal 6.0-15.0 [facility] Comment on above: Order Comment: PT IS FASTING Performed By: #### C MP #### [facility] [address] AST [Catalytic activity/Vol] 39 U/L Normal 13-39 [facility] Comment on above: Order Comment: PT IS FASTING Performed By: #### C MP #### [facility] [address] [place] [id number] [facility] Bilirubin [Mass/Vol] 0.7 mg/dL Normal 0.3-1.0 [facility] Comment on above: Order Comment: PT IS FASTING Performed By: #### C MP #### [facility] [address] Calcium [Mass/Vol] 9.1 mg/dL Normal 8.6-10.3 [facility] Comment on above: Order Comment: PT IS FASTING Performed By: #### C MP #### [facility] [address] Chloride [Moles/Vol] 103 mmol/L Normal 98-107 [facility] Comment on above: Order Comment: PT IS FASTING Performed By: #### C MP #### [address] CO2 [Moles/Vol] 28.0 mmol/L Normal 21.0-31.0 [facility] Comment on above: Order Comment: PT IS FASTING Performed By: #### C MP #### [facility] [address] Creatinine [Mass/Vol] 1.00 mg/dL Normal 0.70-1.30 [facility] Comment on above: Order Comment: PT IS FASTING Performed By: #### C MP #### [facility] [address] [place] [address] [place] GFR/1.73 sq M.predicted MDRD (S/P/Bld) [Vol rate/Area] mL/min/{1.73_m2} [facility] Comment on above: Order Comment: PT IS FASTING Performed By: #### C MP #### [facility] [address] [place] [address] [place] Globulin (S) [Mass/Vol] 1.7 g/dL [facility] Comment on above: Order Comment: PT IS FASTING Performed By: #### C MP #### [facility] [address] [place] [address] [place] Glucose [Mass/Vol] 93 mg/dL Normal 70-100 [facility] Comment on above: Order Comment: PT IS FASTING Result Comment: [place] Glucose Reference Range is dependent on time and content of last meal. Glucose of more than 200 mg/dL in a nonstressed, ambulatory subject supports the diagnosis of Diabetes Mellitus. ADA recommended reference range Performed By: #### C MP #### [facility] [address] Potassium [Moles/Vol] 4.4 mmol/L Normal 3.5-5.1 [facility] Comment on above: Order Comment: PT IS FASTING Performed By: #### C MP #### [facility] [address] [place] [address] [place] Protein [Mass/Vol] 6.1 g/dL Low 6.4-8.9 [facility] Comment on above: Order Comment: PT IS FASTING Performed By: #### C MP #### [facility] [address] [place] [address] [place] Sodium [Moles/Vol] 138 mmol/L Normal 136-145 [facility] Comment on above: Order Comment: PT IS FASTING Performed By: #### C MP #### [facility] [address] [place] [address] [place] Urea nitrogen [Mass/Vol] 15 mg/dL Normal 7-25 [facility] Comment on above: Order Comment: PT IS FASTING Performed By: #### C MP #### [facility] [address] [place] [id number] [place] Creatinine [Mass/volume] in Serum or PlasmaOrdered By: Sera Flower on 02-05-2023 Creatinine [Mass/Vol] 1.00 mg/dL 0.70-1.30 [facility] ECH echo transthoracicon [facility] echo transthoracic [facility] [address] [place] [address] Echocardiogram Signed Patient: Demarcus Panchal MR#: [id number] 652 : 1955 Acct:[id number] Age/Sex: 68 / M ADM Date: 02/05/23 Loc: Room: Type: [facility] Attending Dr: Rene Castro MD Ordering Provider: Rene Castro MD, [facility] Date of Service: 02/05/23/ ECH/[facility] echo transthoracic: HTN, ISCHEMIC CARDIOMYOPATHY Copies to: Rene Castro MD, [facility] BSA: 2.2 m2 BP: 141/82 mmHg HR: 53 Reason For Study: HTN, ISCHEMIC CARDIOMYOPATHY History: HTN, HLD, Former Smoker, [place], 5 Stents, Asthma, Emphysema, COVID Interpretation Summary [...] 02/05/23 1042 Signed By: Rene Castro MD, [facility] 02/05/23 1207 Normal [facility] Globulin Calc (S) [Mass/Vol] Ordered By: Sera Flower on 02-05-2023 Globulin (S) [Mass/Vol] 1.7 g/dL [facility] Glucose [Mass/volume] in Ser um or PlasmaOrdered By: Sera Flower on 02-05-2023 Glucose [Mass/Vol] 93 mg/dL 70-100 [facility] Comment on above: ADA recommended refe rence rangeRandom Glucose Reference Range is dependent on time and content of last meal. Glucose of more than 200 mg/dL in a nonstressed, ambulatory subject supports the diagnosis of Diabetes Mellitus. No Panel InformationOrdered By: Sera Flower on 02-05-2023 Estimated GFR (CKD-EPI) > 60.0 mL/Min [facility] Creatinine Clearance (Chem N/A [facility] No Panel Informationon 02-05 [facility] daniel 250 DO Work Phone: Potassium [Moles/volume] in Serum or PlasmaOrdered By: Sera Flower on 02-05-2023 Potassium [Moles/Vol] 4.4 mmol/L 3.5-5.1 [facility] Protein [Mass/volume] in Ser um or PlasmaOrdered By: Sera Flower on 02-05-2023 Protein [Mass/Vol] 6.1 g/dL 6.4-8.9 [facility] Serum or plasma albumin/glob ulin mass ratioOrdered By: Sera Flower on 02-05-2023 Albumin/Globulin [Mass ratio] 2.6 {ratio} [facility] Serum or plasma anion gap de terminationOrdered By: Sera Flower on 02-05-2023 Anion gap [Moles/Vol] 11.4 mmol/L 6.0-15.0 [facility] Sodium [Moles/volume] in Ser um or PlasmaOrdered By: Sera Flower on 02-05-2023 Sodium [Moles/Vol] 138 mmol/L 136-145 [facility] Urea nitrogen [Mass/volume] in Serum or PlasmaOrdered By: Sera Flower on 02-05-2023 Urea nitrogen [Mass/Vol] 15 mg/dL 7- [facility] CARDIAC STRESS/REST INJE CTIONon 01-03-2023 [facility] CARDIAC STRESS/REST INJECTION Patient Name: DEMARCUS PANCHAL STUDY: MYOCARDIAL PERFUSION STRESS TEST WITH LEXISCAN Performing facility: [facility], [address] [place] [address], [address], [address] Provider: Rene Castro MD, [facility] PCP: Dr. Hunter Flower Supervising provider: Danna Davis DO, [facility] INDICATION: CAD; HTN Hyperlipidemia Ischemic cardiomyopathy HISTORY: Gender: M; Age: 68 y/o ; Height: 172.72 cm; Weight: 618.6761719 kg. CAD; High Cholesterol; HTN; Quit smoking 38 years ago. Cardiac catheterization on 2009. PTCA on 2009. COMPARISON: Previous nuclear testing completed at [facility]. ACCESSION NUMBER(S): [id number]; [id number]; [id number] ORDERING CLINICIAN: RENE CASTRO TECHNIQUE: TWO DAY [...] Electronically signed by: RENE CASTRO MD Normal [facility] No Panel Informationon 01-03 Normal -[facility] (1BOG) daniel 250 DO Work Phone: Office Visit [...] Weight Tips; Status:Complete - Retrospective Authorization; Done: [id number] Some eating tips that can help you lose weight.; Status:Complete - Retrospective Authorization; Done: [id number] Essential hypertension, Ischemic cardiomyopathy Renew: Carvedilol 6.25 MG Oral Tablet (Coreg); TAKE 1 TABLET TWICE DAILY WITH MEALS SocHx: Former smoker Stop: Losartan Potassium 25 MG Oral Tablet Tobacco Use Screening; Status:Complete; Done: [id number] Unlinked Stop: hydroCHLOROthiazide 25 MG Oral Tablet [...] emphasis on low-calorie diet Rene Castro MD, [facility] Surgical History Problems History of Coronary [...] No a (more content not included)... Normal [facility] Tobacco Screening.on Adult depression screening assessment No [facility] 250 DO Work Phone: Fall risk assessment a) No falls within the last year [facility] 250 DO Work Phone: Tobacco use status [facility] b) No [facility] 250 DO Work Phone: MRI Soft Tissue [...] by Ethan Walsh on 07/16/2022 1246 Normal [facility] Chief Environmental Commitment Officer MRI Brain w/o + w/on 023 MRI [...] by Sean Trejo on 07/01/2022 0911 Normal [facility] Chief Environmental Commitment Officer Shaquille 06-21-2022 KALENN Telephone (INTMLN) -- KVNGDEMARCUS ([id number]) 1955 Date Time Provider Department 06/21/22 DEANDRA BENDER During your visit today, we recorded the following information about you: Delores Mccollum 06/21/2022 12:54 PM Signed [facility] called today. : 1955 Allergies: Codeine, Codeine-Guaifenesin, and Guaifenesin (home) [phone] (cell) Reason for call: Sasha F:[phone] Asking for the MRI orders and office notes to be faxed over to [facility]. Patient will be having them done there. Patient last appointment: Visit date not found The patients preferred pharmacy has been captured for this encounter? not asked Delores Mccollum [facility] 06/21/2022 2:03 PM Signed Notes and MRI [...] Status:Closed by ORQUIDEA SIBLEY on 06/21/22 Normal [facility] XR Ribs w/ PA Chest Left*on [...] by Ethan Walsh on 03/13/2022 1254 Normal [facility] XR Chest 2 Views*on 01-18-20 22 XR Chest 2 Views* COMPARISON: none TECHNIQUE: Upright PA and lateral views of the chest were obtained. FINDINGS: Heart is normal in size. Lungs are clear and well expanded. No pleural effusion or pneumothorax. The bony thorax is unremarkable. IMPRESSION: NO ACUTE CARDIOPULMONARY ABNORMALITY. Report reported and signed by AMALIA LOGNA on 01/17/2022 1243 Normal [facility] Specialist Tobacco Screening.on 022 Adult depression screening assessment No [facility] daniel 250 DO Work Phone: Fall risk assessment a) No falls within the last year [facility] daniel 250 DO Work Phone: Tobacco use status [facility] b) No [facility] daniel 250 DO Work Phone: [...] by AMALIA LOGAN on 08/04/2021 1346 Normal [facility] Specialist Complete Blood Count with Au to Diffon 07-29-2021 Basophils (Bld) [#/Vol] 0.05 10*3/uL Normal 0.00-0.20 [facility] Specialist Comment on above: Performed By: #### C MP, CBCAD #### [facility] [address] [place], [place] [id number] Basophils/100 WBC (Bld) 0.8 % Normal [facility] Specialist Comment on above: Performed By: #### C MP, CBCAD #### [facility] [address] [place], [place] [id number] Eosinophils (Bld) [#/Vol] 0.46 10*3/uL Normal 0.02-0.50 [facility] Specialist Comment on above: Performed By: #### C JOSE ANTONIO, CBCAD #### [facility] [address] [place], [place] [id number] Eosinophils/100 WBC (Bld) 7.7 % Normal [facility] Specialist Comment on above: Performed By: #### C JOSE ANTONIO, CBCAD #### [facility] [address] [place], [place] [id number] Erythrocyte distribution width (RBC) [Ratio] 13.3 % Normal 11.0-15.0 [facility] Specialist Comment on above: Performed By: #### C JOSE ANTONIO, CBCAD #### [facility] [address] [place], [place] [id number] Hematocrit (Bld) [Volume fraction] 42.2 % Normal 38.5-50.0 [facility] Specialist Comment on above: Performed By: #### C JOSE ANTONIO, CBCAD #### [facility] [address] [place], [place] [id number] Hemoglobin (Bld) [Mass/Vol] 14.5 g/dL Normal 13.0-17.1 [facility] Specialist Comment on above: Performed By: #### C MP, CBCAD #### [facility] [address] [place], [place] [id number] Lymphocytes (Bld) [#/Vol] 1.6 10*3/uL Normal 0.9-3.9 [facility] Specialist Comment on above: Performed By: #### C JOSE ANTONIO, CBCAD #### [facility] [address] [place], [place] [id number] Lymphocytes/100 WBC (Bld) 26.1 % Normal [facility] Comment on above: Performed By: #### C MP, CBCAD #### [facility] [address] [place], [place] [id number] MCH (RBC) [Entitic mass] 29.7 pg Normal 27.0-33.0 [facility] Comment on above: Performed By: #### C MP, CBCAD #### [facility] [address] [place], [place] [id number] MCHC (RBC) [Mass/Vol] 34.4 g/dL Normal 32.0-36.0 [facility] Comment on above: Performed By: #### C MP, CBCAD #### [facility] [address] [place], [place] [id number] MCV (RBC) [Entitic vol] 86 fL Normal 80-100 [facility] Comment on above: Performed By: #### C MP, CBCAD #### [facility] [address] [place], [place] [id number] Monocytes (Bld) [#/Vol] 0.9 10*3/uL Normal 0.2-0.9 [facility] Comment on above: Performed By: #### C MP, CBCAD #### [facility] [address] [place], [place] [id number] Monocytes/100 WBC (Bld) 14.6 % Normal [facility] Comment on above: Performed By: #### C MP, CBCAD #### [facility] [address] [place], [place] [id number] Neutrophils (Bld) [#/Vol] 3.0 10*3/uL Normal 1.5-7.8 [facility] Comment on above: Performed By: #### C MP, CBCAD #### [facility] [address] [place], [place] [id number] Neutrophils/100 WBC (Bld) 50.5 % Normal [facility] Specialist Comment on above: Performed By: #### C MP, CBCAD #### [facility] [address] [place], [place] [id number] Platelet mean volume (Bld) [Entitic vol] 10.90 fL Normal 7.50-12.50 [facility] Specialist Comment on above: Performed By: #### C MP, CBCAD #### [facility] [address] [place], [place] [id number] Platelets (Bld) [#/Vol] 166 10*3/uL Normal 140-400 [facility] Specialist Comment on above: Performed By: #### C MP, CBCAD #### [facility] [address] [place], [place] [id number] RBC (Bld) [#/Vol] 4.89 10*6/uL Normal 4.20-5.80 [facility] Specialist Comment on above: Performed By: #### C JOSE ANTONIO, CBCAD #### [facility] [address] [place], [place] [id number] RDW-SD 41.2 fL Normal 37.0-50.0 [facility] Specialist Comment on above: Performed By: #### C JOSE ANTONIO, CBCAD #### [facility] [address] [place], [place] [id number] WBC (Bld) [#/Vol] 5.9 10*3/uL Normal 3.8-11.0 [facility] Specialist Comment on above: Performed By: #### C JOSE ANTONIO, CBCAD #### [facility] [address] [place], [place] [id number] Comprehensive Metabolic Pane [facility] 07-29-2021 Albumin [Mass/Vol] 4.6 g/dL Normal 3.6-5.1 [facility] Specialist Comment on above: Performed By: #### C MP, CBCAD #### [facility] [address] [place], [place] [id number] Albumin/Globulin [Mass ratio] 2.7 {ratio} High 1.0-2.5 [facility] Specialist Comment on above: Performed By: #### C MP, CBCAD #### [facility] [address] [place], [place] [id number] ALP [Catalytic activity/Vol] 74 U/L Normal 40-129 [facility] Specialist Comment on above: Performed By: #### C JOSE ANTONIO, CBCAD #### [facility] [address] [place], [place] [id number] ALT [Catalytic activity/Vol] 55 U/L High 9-46 [facility] Comment on above: Result Comment: 04/27 Female reference range changed. Performed By: #### C MP, CBCAD #### [facility] [address] [place], [place] [id number] Anion gap [Moles/Vol] 16 mmol/L Normal 12-20 [facility] Specialist Comment on above: Result Comment: Effe ctive 06/02/2019 reference range changed. Performed By: #### C MP, CBCAD #### [facility] [address] [place], [place] [id number] AST [Catalytic activity/Vol] 39 U/L Normal 10-40 [facility] Comment on above: Performed By: #### C MP, CBCAD #### [facility] [address] [place], [place] [id number] BUN/CREA 13 Ratio Normal 6-22 [facility] Comment on above: Performed By: #### C MP, CBCAD #### [facility] [address] [place], [place] [id number] Calcium [Mass/Vol] 9.0 mg/dL Normal 8.6-10.2 [facility] Comment on above: Performed By: #### C MP, CBCAD #### [facility] [address] [place], [place] [id number] Chloride [Moles/Vol] 107 mmol/L Normal 98-107 [facility] Comment on above: Performed By: #### C MP, CBCAD #### [facility] [address] [place], [place] [id number] CO2 [Moles/Vol] 20 mmol/L Normal 20-31 [facility] Comment on above: Performed By: #### C MP, CBCAD #### [facility] [address] [place], [place] [id number] Creatinine [Mass/Vol] 1.0 mg/dL Normal 0.7-1.4 [facility] Comment on above: Performed By: #### C MP, CBCAD #### [facility] [address] [place], [place] [id number] eGFRAA 94 mL/min/1.73m2 Normal >60 [facility] Specialist Comment on above: Performed By: #### C MP, CBCAD #### [facility] [address] [place], [place] [id number] eGFRNAA 78 mL/min/1.73m2 Normal >60 [facility] Specialist Comment on above: Performed By: #### C MP, CBCAD #### [facility] [address] [place], [place] [id number] Globulin (S) [Mass/Vol] 1.7 g/dL Low 1.9-3.7 [facility] Specialist Comment on above: Performed By: #### C MP, CBCAD #### [facility] [address] [place], [place] [id number] Glucose [Mass/Vol] 121 mg/dL High 65-99 [facility] Chief Environmental Commitment Officer Comment on above: Result Comment: For FASTING Glucose --- ADA reference ranges: Normal 65-99 mg/dl Prediabetes 100-125 Diabetes >/= 126 Performed By: #### C MP, CBCAD #### [facility] [address] [place], [place] [id number] Potassium [Moles/Vol] 4.2 mmol/L Normal 3.5-5.5 [facility] Comment on above: Performed By: #### C MP, CBCAD #### [facility] [address] [place], [place] [id number] Protein [Mass/Vol] 6.3 g/dL Normal 6.1-8.1 [facility] Chief Environmental Commitment Officer Comment on above: Performed By: #### C MP, CBCAD #### [facility] [address] [place], [place] [id number] Sodium [Moles/Vol] 139 mmol/L Normal 135-146 [facility] Chief Environmental Commitment Officer Comment on above: Performed By: #### C MP, CBCAD #### [facility] [address] [place], [place] [id number] TBIL <0.3 Normal [facility] Specialist Comment on above: Performed By: #### C MP, CBCAD #### [facility] [address] [place], [place] [id number] Urea nitrogen [Mass/Vol] 12 mg/dL Normal 7-25 [facility] Chief Environmental Commitment Officer Comment on above: Performed By: #### C MP, CBCAD #### [facility] [address] [place], [place] [id number] Microalbumin (with Creat)on 07-29-2021 mALB <1.2 Low [facility] Chief Environmental Commitment Officer Comment on above: Result Comment: Unab le to calculate mALB/Crea ratio, mALB is <1.2 mg/dL mALB reference range not established. Performed By: #### m ALBC #### [facility] [address] [place], [place] [id number] UCREA 85 mg/dL Normal 39-259 [facility] Chief Environmental Commitment Officer Comment on above: Performed By: #### m ALBC #### [facility] [address] [place], [place] [id number] Prostatic Specific Antigen, Totalon 07-29-2021 TPSA 2.330 ng/mL Normal <4.000 [facility] Chief Environmental Commitment Officer Comment on above: Result Comment: PSA Test Method: ECLIA/Brandi e 601 Performed By: #### P SA #### [facility] [address] [place], [place] [id number] Q - URINALYSIS,COMPLETEon Appearance (U) CLEAR Normal CLEAR [facility] Chief Environmental Commitment Officer Comment on above: Order Comment: [facility] Testing performed at: [facility], [address] , [address] [place] [address], [phone], Transformer Repairer: Rafi Agustin MD [facility] Collection Date/Time: [facility] Results Received Date/Time: [facility] Reported Date/Time: Performed By: #### 3 4F #### [facility] [address] [place] [address] BACTERIA NONE SEEN Normal NONE SEEN [facility] Chief Environmental Commitment Officer Comment on above: Order Comment: [facility] performed at: [facility], [address], [address] [place] [address], [phone], Transformer Repairer: Rafi Agustin MD [facility] Date/Time: [facility] Results Received Date/Time: [facility] Reported Date/Time: Performed By: #### 3 4F #### [facility] [address] [place] [address] Bilirubin Ql (U) Negative Normal NEGATIVE [facility] Chief Environmental Commitment Officer Comment on above: Order Comment: [facility] performed at: [employer], [address] , [address] [place] [address], [address] [place] [address], Transformer Repairer: Rafi Agustin MD [facility] Collection Date/Time: [facility] Results Received Date/Time: [facility] Reported Date/Time: Performed By: #### 3 4F #### [facility] Default [address] [place] [address] Color (U) YELLOW Normal YELLOW [facility] Chief Environmental Commitment Officer Comment on above: Order Comment: [facility] Testing performed at: [facility], [address] , [address] [place] [address], [address] [place] [address], Transformer Repairer: Rafi Agustin MD [facility] Collection Date/Time: [facility] Results Received Date/Time: [facility] Reported Date/Time: Performed By: #### 3 4F #### [facility] Default [address] [place] [address] Glucose Ql (U) Negative Normal NEGATIVE [facility] Chief Environmental Commitment Officer Comment on above: Order Comment: [facility] Testing performed at: [employer], [facility], [address] , [address] [place] [address], [address] [place] [address], Transformer Repairer: Rafi Agustin MD [facility] Collection Date/Time: [facility] Results Received Date/Time: [facility] Reported Date/Time: Performed By: #### 3 4F #### [facility] Default [address] [place] [address] HYALINE CAST NONE SEEN Normal NONE SEEN [facility] Chief Environmental Commitment Officer Comment on above: Order Comment: [facility] Testing performed at: [employer], [facility], [address] , [address] [place] [address], [address] [place] [address], Transformer Repairer: Rafi Agustin MD [facility] Date/Time: [facility] Results Received Date/Time: [facility] Reported Date/Time: Performed By: #### 3 4F #### [facility] Default [address] [place] [address] Ketones Ql (U) Negative Normal NEGATIVE [facility] Specialist Comment on above: Order Comment: [facility] Testing performed at: [employer], [facility], [address] [facility], [address] [place] [address], [address] [place] [address], Transformer Repairer: Rafi Agustin MD [facility] Collection Date/Time: [facility] Results Received Date/Time: [facility] Reported Date/Time: Performed By: #### 3 4F #### [facility] Default [address] [place] [address] Leukocyte esterase Test strip Ql (U) Negative Normal NEGATIVE [facility] Chief Environmental Commitment Officer Comment on above: Order Comment: [facility] Testing performed at: [employer], [facility], [address] [facility], [address] [place] [address], [address] [place] [address], Transformer Repairer: Rafi Agustin MD [facility] Collection Date/Time: [facility] Results Received Date/Time: [facility] Reported Date/Time: Performed By: #### 3 4F #### [facility] Default [address] [place] [address] Nitrite Ql (U) Negative Normal NEGATIVE [facility] Chief Environmental Commitment Officer Comment on above: Order Comment: [facility] Testing performed at: [employer], [facility], [address] [facility], [address] [place] [address], [address] [place] [address], Transformer Repairer: Rafi Agustin MD [facility] Collection Date/Time: [facility] Results Received Date/Time: [facility] Reported Date/Time: Performed By: #### 3 4F #### [facility] Default [address] [place] [address] OCCULT BLOOD Negative Normal NEGATIVE [facility] Chief Environmental Commitment Officer Comment on above: Order Comment: [facility] Testing performed at: Q, [facility], [address] [facility], [address] [place] [address], [address] [place] [address], Transformer Repairer: Rafi Agustin MD [facility] Collection Date/Time: [facility] Results Received Date/Time: [facility] Reported Date/Time: Performed By: #### 3 4F #### [facility] Default [address] [place] [address] pH (U) 6.5 [pH] Normal 5.0-8.0 [facility] Chief Environmental Commitment Officer Comment on above: Order Comment: [facility] Testing performed at: [facility], [facility], [address] [facility], [address] [place] [address], [address] [place] [address], Transformer Repairer: Rafi Agustin MD [facility] Collection Date/Time: [facility] Results Received Date/Time: [facility] Reported Date/Time: Performed By: #### 3 4F #### [facility] Default [address] [place] [address] Protein Ql (U) Negative Normal NEGATIVE [facility] Chief Environmental Commitment Officer Comment on above: Order Comment: [facility] Testing performed at: Q, [facility], [address] [facility], [address] [place] [address], [address] [place] [address], Transformer Repairer: Rafi Agustin MD [facility] Collection Date/Time: [facility] Results Received Date/Time: [facility] Reported Date/Time: Performed By: #### 3 4F #### [facility] Default [address] [place] [address] RBC NONE SEEN Normal < OR = 2 [facility] Chief Environmental Commitment Officer Comment on above: Order Comment: [facility] Testing performed at: Q, [facility], [address] [facility], [address] [place] [address], [address] [place] [address], Transformer Repairer: Rafi Agustin MD [facility] Collection Date/Time: [facility] Results Received Date/Time: [facility] Reported Date/Time: Performed By: #### 3 4F #### [facility] Default [address] [place] [address] Specific gravity (U) [Rel density] 1.012 Normal 1.001-1.035 [facility] Specialist Comment on above: Order Comment: [facility] Testing performed at: [employer], [facility], [address] [facility], [address] [place] [address], [address] [place] [address], Transformer Repairer: Rafi Agustin MD [facility] Collection Date/Time: [facility] Results Received Date/Time: [facility] Reported Date/Time: Performed By: #### 3 4F #### [facility] Default [address] [place] [address] SQUAMOUS EPITHELIAL CELLS NONE SEEN Normal < OR = 5 [facility] Specialist Comment on above: Order Comment: [facility] Testing performed at: [employer], [facility], [address] [facility], [address] [place] [address], [address] [place] [address], Transformer Repairer: Rafi Agustin MD [facility] Date/Time: [facility] Results Received Date/Time: [facility] Reported Date/Time: Performed By: #### 3 4F #### [facility] Default [address] [place] [address] WBC NONE SEEN Normal < OR = 5 [facility] Specialist Comment on above: Order Comment: [facility] Testing performed at: [employer], [facility], [address] [facility], [address] [place] [address], [address] [place] [address], Transformer Repairer: Rafi Agustin MD [facility] Collection Date/Time: [facility] Results Received Date/Time: [facility] Reported Date/Time: Performed By: #### 3 4F #### [facility] Default [address] [place] [address] No Panel Information [facility] Vital Signs Date Time Vital Sign Value Performing Clinician Facility 10-18-2023 09:25-0400 Body height 172.7 cm Rene Castro MD Work Phone: [facility] 10-18-2023 09:25-0400 Body mass index (BMI) [Ratio] 36.31 kg/m2 Rene Castro MD Work Phone: [facility] 10-18-2023 09:25-0400 Body weight 108.32 kg Rene Castro MD Work Phone: [facility] 10-18-2023 09:25-0400 Diastolic blood pressure 76 mm[Hg] Rene Castro MD Work Phone: [facility] 10-18-2023 09:25-0400 Heart rate 68 /min Rene Castro MD Work Phone: [facility] 10-18-2023 09:25-0400 Systolic blood pressure 120 mm[Hg] Rene Castro MD Work Phone: [facility] 06-30-2023 10:23-0500 Body mass index (BMI) [Ratio] 35.28 kg/m2 Hosea Sifuentes DO Work Phone: [facility] 06-30-2023 10:23-0500 Body temperature 97.81 [degF] Hosea Sifuentes DO Work Phone: [facility] 06-30-2023 10:23-0500 Body weight 105.23 kg Hosea Sifuentes DO Work Phone: [facility] 06-30-2023 10:23-0500 Diastolic blood pressure 82 mm[Hg] Hosea Sifuentes DO Work Phone: [facility] 06-30-2023 10:23-0500 Heart rate 86 /min Hosea Sifuentes DO Work Phone: [facility] 06-30-2023 10:23-0500 Respiratory rate 18 /min Hosea Sifuentes DO Work Phone: [facility] 06-30-2023 10:23-0500 SaO2% (BldA) [Mass fraction] 94 % Hosea Sifuentes DO Work Phone: [facility] 06-30-2023 10:23-0500 Systolic blood pressure 138 mm[Hg] Hosea Sifuentes DO Work Phone: [facility] 06-14-2023 14:25-0500 Body temperature 97.7 [degF] MD Sera Flower Work Phone: [facility] 06-14-2023 14:25-0500 Diastolic blood pressure 74 mm[Hg] MD Sera Flower Work Phone: [facility] 06-14-2023 14:25-0500 Heart rate 78 /min MD Sera Flower Work Phone: [facility] 06-14-2023 14:25-0500 Respiratory rate 20 /min MD Sera Flower Work Phone: [facility] 06-14-2023 14:25-0500 SaO2% (BldA) [Mass fraction] 95 % MD Sera Flower Work Phone: [facility] 06-14-2023 14:25-0500 Systolic blood pressure 155 mm[Hg] MD Sera Flower Work Phone: [facility] 06-14-2023 11:48-0500 Body height 172.72 cm MD Sera Flower Work Phone: [facility] 06-14-2023 11:48-0500 Body weight 108.9 kg MD Sera Flower Work Phone: [facility] 03-23-2023 09:34-0400 Body height 172.7 cm Rene Castro MD Work Phone: [facility] 03-23-2023 09:34-0400 Body mass index (BMI) [Ratio] 35.12 kg/m2 Rene Castro MD Work Phone: [facility] 03-23-2023 09:34-0400 Body weight 104.78 kg Rene Castro MD Work Phone: [facility] 03-23-2023 09:34-0400 Diastolic blood pressure 72 mm[Hg] Rene Castro MD Work Phone: [facility] 03-23-2023 09:34-0400 Heart rate 60 /min Rene Castro MD Work Phone: [facility] 03-23-2023 09:34-0400 Systolic blood pressure 128 mm[Hg] Rene Castro MD Work Phone: [facility] 09-07-2022 11:31-0400 Body height 172.72 cm Sera Flower Work Phone: [facility]K-Waiccbrjav-Gsuyg daniel 250 DO Work Phone: 09-07-2022 11:31-0400 Body mass index (BMI) [Ratio] 36.8 kg/m2 Sera Flower Work Phone: GX-Qbfefnyfpn-Nhnfy daniel 250 DO Work Phone: 09-07-2022 11:31-0400 Body surface area Derived from formula 2.22 m2 Sera Flower Work Phone: JA-Ygynnzuhcn-Hctwz daniel 250 DO Work Phone: 09-07-2022 11:31-0400 Body weight 109.77 kg Sera Flower Work Phone: AF-Zgaglrjkgc-Smcrm daniel 250 DO Work Phone: 09-07-2022 11:31-0400 Diastolic blood pressure 68 mm[Hg] Sera Flower Work Phone: NK-Mbsfmcvbms-Efiqj daniel 250 DO Work Phone: 09-07-2022 11:31-0400 Heart rate 76 /min Sera Flower Work Phone: PY-Ritlrzzjje-Mtlmk daniel 250 DO Work Phone: 09-07-2022 11:31-0400 Systolic blood pressure 124 mm[Hg] Sera Flower Work Phone: KQ-Hbgudtkkay-Gpekj daniel 250 DO Work Phone: 09-05-2021 14:04-0400 Body height 172.72 cm Sera Flower Work Phone: [facility] 250 DO Work Phone: 09-05-2021 14:04-0400 Body mass index (BMI) [Ratio] 36.49 kg/m2 Sera Flower Work Phone: [facility] 250 DO Work Phone: 09-05-2021 14:04-0400 Body surface area Derived from formula 2.21 m2 Sera lFower Work Phone: [facility] 250 DO Work Phone: 09-05-2021 14:04-0400 Body weight 108.86 kg Sera Flower Work Phone: [facility] 250 DO Work Phone: 09-05-2021 14:04-0400 Diastolic blood pressure 82 mm[Hg] Sera Flower Work Phone: [facility] 250 DO Work Phone: 09-05-2021 14:04-0400 Heart rate 70 /min Sera Flower Work Phone: [facility] 250 DO Work Phone: 09-05-2021 14:04-0400 Systolic blood pressure 132 mm[Hg] Sera Flower Work Phone: [facility] 250 DO Work Phone: Encounters Encounter Date Encounter Type Care Provider Facility Start: 2024 End: 2024 ambulatory BENJY ALAS Not Available Start: 10-18-2023 End: 10-18-2023 Office outpatient visit 25 minutes Rene Castro MD Work Phone: [facility] Comment on above: Coronary artery dise [...] Start: 10-18-2023 End: 10-18-2023 ambulatory RENE Porter [facility] Ambulatory Start: 09-20-2023 End: 09-20-2023 ambulatory SERA FLOWER Not Available Start: 07-30-2023 End: 07-30-2023 ambulatory SERA FLOWER Not Available Start: 06-30-2023 End: 06-30-2023 ambulatory HOSEA SIFUENTES Not Available Start: 06-30-2023 End: 06-30-2023 Office outpatient visit 25 minutes Hosea Sifuentes DO Work Phone: [facility] Comment on above: Acute exacerbation o f chronic obstructive pulmonary disease (CMS/HCC) (Primary Dx) Start: 06-27-2023 End: 06-27-2023 ambulatory SERA FLOWER Not Available Start: 06-14-2023 End: 06-14-2023 Emergency department patient visit Jasper Martinez Facility:[facility] Start: 06-14-2023 End: 06-14-2023 Emergency department patient visit MD Sera Flower Work Phone: [facility] Work Phone: Start: 06-14-2023 End: 06-14-2023 ambulatory RENZO WEAVER Not Available Start: 05-19-2023 End: 05-19-2023 ambulatory BRITTANY FIGUEROA Not Available Start: 03-23-2023 End: 03-23-2023 Office outpatient visit 25 minutes Rene Castro MD Work Phone: [facility] Comment on above: 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; Essential hypertension; Mixed hyperlipidemia; Ischemic cardiomyopathy; Status post coronary artery stent placement; Class 2 obesity with body mass index (BMI) of 35.0 to 35.9 in adult, unspecified obesity type, unspecified whether serious comorbidity present Start: 03-23-2023 End: 03-23-2023 ambulatory [facility] Ambulatory Start: 02-06-2023 Other Sera Flower Work Phone: [facility] 250 DO Work Phone: Start: 02-05-2023 End: 02-05-2023 ambulatory [facility] Facility:[facility] Start: 02-05-2023 End: 02-05-2023 ambulatory MD Sera Flower Work Phone: [facility] Work Phone: Start: 02-05-2023 End: 02-05-2023 Patient encounter procedure MD Sera Flower Work Phone: [facility]Electrodiagnostics Work Phone: Start: 02-05-[address] Sera Flower Facility:[id number] Start: 01-30-2023 AUDIT Sera Flower Work Phone: [facility] 600 DO Work Phone: Start: 01-15-2023 Other Sera Flower Work Phone: [facility] 250 DO Work Phone: Start: 01-12-2023 Chart Update Sera Flower Work Phone: [facility] 250 DO Work Phone: Start: 01-04-[address] Sera Flower Facility:[id number] Start: 01-03-[address] Sera Flower Facility:[id number] Start: 11-14-2022 End: 11-14-2022 ambulatory DEANDRA BENDER Facility:[facility] Start: 11-14-2022 End: 11-14-2022 Patient encounter procedure Deandra Bender MD Work Phone: Ophthalmology Comment on above: Clonic hemifacial sp asm, right (Primary Dx) Start: 09-07-2022 Office outpatient vi sit 25 minutes Sera Flower Work Phone: [facility]W-Kdhccjfrxw-Uzpmyaan 250 DO Work Phone: Start: 09-07-2022 ambulatory Rene Castro Facility : Start: 08-08-2022 End: 08-08-2022 ambulatory DEANDRA BENDER Facility:[facility] Start: 08-08-2022 End: 08-08-2022 Patient encounter procedure Deandra Bender MD Work Phone: Ophthalmology Comment on above: Clonic hemifacial sp asm, right (Primary Dx) Start: 06-21-2022 Telephone encounter Deandra Bender MD Work Phone: [facility] [place] Comment on above: Orders Start: 06-21-2022 End: 06-21-2022 ambulatory DEANDRA BENDER Facility:[facility] Start: 06-21-2022 End: 06-21-2022 Patient encounter procedure Deandra Bender MD Work Phone: Ophthalmology Comment on above: Clonic hemifacial sp asm, right (Primary Dx); Paralytic strabismus; Jada's syndrome Start: 05-01-2022 End: 05-01-2022 ambulatory MAU RANDLE Facility:[facility] Start: 05-01-2022 End: 05-01-2022 Patient encounter procedure Mau Randle OD Work Phone: Ophthalmology Comment on above: Eyelid myokymia (Velma maren Dx); Dry eye syndrome of both eyes; Hyperopia of both eyes with astigmatism and presbyopia Start: 09-05-2021 Office outpatient vi sit 25 minutes Sera Flower Work Phone: [facility] 250 DO Work Phone: Procedures [...] [facility] Start: 03-23-2023 Lipid panel [facility] Start: 03-20-2023 Echocardiography [facility] Start: 03-20-2023 Echocardiography Generic Provider Scanning Start: 02-13-2023 History of placement of stent for coronary artery disease Status post coronary artery stent placement Rene Castro MD Work Phone: Start: 11-14-2022 [facility] innervated facial nrv unil Deandra Bender MD Work Phone: Start: 08-08-2022 [facility] nrv unil Evelia Huffman HABILITATION ASSISTANT.HOSTESS HOST Work Phone: Start: 07-28-2019 Colonoscopy Hosea Sifuentes [...] Screening for malignant neoplasm of colon [facility] Start: 09-13-2028 Lipid panel Lipid Panel [facility] Start: 08-11-2027 DTaP/Tdap/Td Vaccines (2 - Td or Tdap) DTaP/Tdap/Td Vaccines (2 - Td or Tdap) [facility] Start: 05-15-2024 End: 05-15-2024 Patient encounter procedure 05/15/2024 9:10 AM EST Office Visit [facility] [address] [facility] [address] [place] [address] Rene Castro MD [address] [facility] [address] [place] [address] [facility] Start: 03-20-2024 Echocardiography Echocardiogram [facility] Start: 01-27-2024 Influenza vaccination Influenza Vaccine (Season Ended) [facility] Start: 10-18-2023 End: 10-18-2023 Patient encounter procedure 10/18/2023 9:30 AM EDT Office Visit [place] [id number] [facility] [address] [place] [address] Rene Castro MD [address] [facility] [address] [place] [address] [facility] Start: 09-20-2023 End: 09-20-2023 Patient encounter procedure 09/20/2023 1:00 PM EDT Office Visit [facility] [address] [place] [id number] Sera Flower MD [address] [place] [address] [facility] Start: 03-23-2023 End: 03-23-2024 [...] comorbidity present Expected: 03/23/2023 (Approximate), Expires: 03/23/2024 [facility] Work Phone: Comment on above: Expected: [...] comorbidity present Expected: 03/23/2023 (Approximate), Expires: 03/23/2024 [facility] Work Phone: Comment on above: Expected: [...] comorbidity present Expected: 03/23/2023 (Approximate), Expires: 03/23/2024 [facility] Work Phone: Comment on above: Expected: [...] present Expected: 03/23/2023 (Approximate), Expires: 03/23/2024 [facility] Service Area Work Phone: Comment on [...] comorbidity present Expected: 03/23/2023 (Approximate), Expires: 03/23/2024 [facility] Work Phone: Comment on above: Expected: 03/23/2023 (Approximate), Expi res: 03/23/2024 Start: 03-15-2023 FUV, Provider: Rene Castro, Status: Pen, Time: 9:20 AM FUV, Provider: Rene Castro, Status: Pen, Time: 9:20 AM [facility] 250 DO Work Phone: Start: 01-26-2023 COVID-19 Vaccine ( season) COVID-19 Vaccine ( season) [facility] Start: 01-26-2023 Influenza vaccination [facility] Start: 09-07-2022 FUV, Provider: Rene Castro, Status: Pen, Time: 8:30 AM FUV, Provider: Rene Castro, Status: Pen, Time: 8:30 AM [facility] 250 DO Work Phone: Start: 05-28-2022 ADVANCE DIRECTIVE DISCUSSION ADVANCE DIRECTIVE DISCUSSION [facility] Start: 05-28-2022 DEPRESSION ASSESSMENT DEPRESSION ASSESSMENT [facility] Start: 01-26-2022 Influenza vaccination INFLUENZA (#1) [facility] Start: 05-28-2021 ADVANCE DIRECTIVE DISCUSSION ADVANCE DIRECTIVE DISCUSSION [facility] Start: 05-28-2021 DEPRESSION ASSESSMENT DEPRESSION ASSESSMENT [facility] Start: 2018 Abdominal aortic aneurysm screening Abdominal Aortic Aneurysm (AAA) Screening [facility] Start: 2018 PNEUMOCOCCAL: 65+ (1 - PCV) PNEUMOCOCCAL: 65+ (1 - PCV) [facility] Start: 02-15-2017 Zoster Vaccines (2 of 3) Zoster Vaccines (2 of 3) [facility] Start: 2013 RSV patients and/or patients aged 60+ years (1 - 1-dose 60+ series) RSV patients and/or patients aged 60+ years (1 - 1-dose 60+ series) [facility] Start: 2003 SHINGRIX VACCINE (1 of 2) SHINGRIX VACCINE (1 of 2) [facility] Start: 1998 COLOGUARD (FIT-DNA) COLOGUARD (FIT-DNA) [facility] Start: 1998 Colonoscopy COLONOSCOPY [facility] Start: 1998 COLORECTAL CANCER SCREENING COLORECTAL CANCER SCREENING [facility] Start: [address] COLONOGRAPHY [facility] Start: 1998 DIABETES SCREEN DIABETES SCREEN [facility] Start: 1998 FECAL OCCULT BLOOD FECAL OCCULT BLOOD [facility] Start: 1998 SIGMOIDOSCOPY SIGMOIDOSCOPY [facility] Start: 01-02-1988 LIPID SCREEN LIPID SCREEN [facility] Start: 01-02-1972 Urine microalbumin profile DTAP,TDAP,TD (1 - Tdap) [facility] Start: 1971 Diabetes mellitus screening Diabetes Screening [facility] Start: 1971 HEPATITIS C SCREENING HEPATITIS C SCREENING [facility] Start: 1971 Hepatitis C screening Hepatitis C Screening [facility] Start: 1953 COVID-19 VACCINE (#1) COVID-19 VACCINE (#1) [facility] Start: 1953 Creatinine measurement Creatinine Level [facility] Start: 1953 Lipid panel Lipid Panel [facility] Start: 1953 Medicare Annual Wellness Visit Medicare Annual Wellness Visit (AWV) [facility] Start: 1953 Potassium measurement Potassium Level [facility] Start: 1953 Screening for malignant neoplasm of colon [facility] End: 07-21-2023 Mri brain brain stem w/o w/contrast material MRI BRAIN WO/W IVCON Radiology Routine Paralytic strabismus 1 Occurrences starting 06/21/2022 until 07/21/2023 [facility] Work Phone: Comment on above: 1 Occurrences starting 06/21/2022 until 07/21/2023 End: 07-21-2023 Mri orbit face & neck w/o & w/contrast matrl MRI SOFT TISSUE NECK WO/W IVCON Radiology Routine 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 until 07/21/2023 [facility] Work Phone: Comment on above: 1 Occurrences starting 06/21/2022 until 07/21/2023 Patient Education COPD Exacerbat ion, Adult ED [facility] Work Phone: Patient referral [facility] Work Phone: [facility] Immunizations Immunization Date Immunization Notes Care Provider Fa cili 04-16-2019 Seasonal trivalent influenza vaccine, adjuvanted, preservative free Sera Flower Work Phone: [place] [address] DO Work Phone: 04-16-2019 influenza virus vacc ine, unspecified formulation Rene Castro MD Work Phone: [facility] Work Phone: 03-28-2019 influenza virus vacc ine, unspecified formulation Sera Flower Work Phone: [place] [address] DO Work Phone: 08-16-2018 influenza, seasonal, injectable, preservative free Sera Flower Work Phone: [place] [address] DO Work Phone: 08-16-2018 pneumococcal conjuga te vaccine, 13 valent Sera Flower Work Phone: [facility] [employer] DO Work Phone: 05-28-2018 pneumococcal polysaccharide vaccine, 23 valent Sera Flower Work Phone: [place] [address] DO Work Phone: 08-10-2017 tetanus toxoid, redu daniel diphtheria toxoid, and acellular pertussis vaccine, adsorbed Sera Flower Work Phone: [place] [address] DO Work Phone: 12-21-2016 zoster vaccine, live Sera Flower Work Phone: [place] [phone] DO Work Phone: 09-30-2012 pneumococcal polysaccharide vaccine, 23 valent Sera Flower Work Phone: [place] [address] DO Work Phone: 09-30-2012 pneumococcal vaccine , unspecified formulation Hosea Sifuentes DO Work Phone: [facility] 05-28-2010 influenza virus vacc ine, unspecified formulation Rene Castro MD Work Phone: [facility] Work Phone: 03-28-2010 influenza, seasonal, injectable, preservative free Rene Castro MD Work Phone: [facility] Work Phone: 2007 TD(adult) unspecifie d formulation Hosea Sifuentes DO Work Phone: [facility] influenza virus vacc ine, unspecified formulation Sera Flower Work Phone: [place] [address] DO Work Phone: Comment on above: Mar 20102010 Payers Date Payer Category Payer Private Health Insurance HUMANA HUMANA HMO/POS [id number] 2023-Present [address] [address] [place] [address] [id number] 2023 Self-pay [id number] 2022 Department of [facility] e ( and others) [id number] 2022 [employer] [place] [employer] ( and others) [id number] 2022 Medicare [id number] 2021 [employer] [place] [employer] ( and others) [id number] 2021 Unknown 2017 Medicare [id number] 2017 Medicare [id number] 1955 Unknown [id number] 2.16.840.1.110623.3.579.2. 356 1953 Unknown [id number] 2.16.840.1.383438.3.579.2. 356 1953 Unknown [id number] 2.16.840.1.192672.3.579.2. 1068 1953 Unknown [id number] 2.16.840.1.029383.3.579.2. 1068 1953 Unknown [id number] 2.16.840.1.450311.3.579.2. 1259 1953 Unknown [id number] 2.16.840.1.698778.3.579.2. 1259 1953 Unknown [id number] 2.16.840.1.256496.3.579.2. 1259 1953 Unknown [id number] 2.16.840.1.080464.3.579.2. 1259 1953 Unknown [id number] 2.16.840.1.431699.3.579.2. 1259 1953 Unknown [id number] 2.16.840.1.116519.3.579.2. 1259 1953 Unknown [id number] 2.16.840.1.473178.3.579.2. 1259 1953 Unknown [id number] 2.16.840.1.419929.3.579.2. 1244 1953 Unknown [id number] 2.16.840.1.813751.3.579.2. 1244 [employer] ( and others) [id number] Unknown [id number] 2.16840.1.112578.3.579.2. 531 Unknown [id number] 2.16.840.1.208979.3.579.2. 531 Social History Date Type Detail Facility Start: 03-23-2023 End: 10-18-2023 No alcohol use No alcohol use [facility] 250 DO Work Phone: Comment on above: 5 CUPS OF COFFEE ANICETO LY; QUIT IN 1984; Start: 05-01-2022 End: 06-14-2023 Tobacco smoking status [facility] Never smoked tobacco [facility] Start: 05-01-2022 End: 10-18-2023 Tobacco use and exposure Smokeless tobacco non-user [facility] Start: 05-01-2022 End: 11-14-2022 Alcohol intake Ex-drinker (finding) [facility] Start: 1955 Sex Assigned At Not on file C [facility] Start: 10-15-2020 End: 10-18-2023 Tobacco smoking status DEIS Ex-smoker (finding) [facility] Start: 1955 Sex Assigned At Male F [facility] End: 05-28-1992 History of tobacco use Current smoker [facility] Work Phone: End: 05-28-1992 History of tobacco use Cigarette Smoker [facility] Work Phone: Start: 03-23-2023 End: 10-18-2023 Alcohol intake Lifetime non-drinker (finding) [facility] Work Phone: Start: 03-23-2023 End: 10-18-2023 Tobacco use panel [facility] Work Phone: Start: 03-13-2023 End: 10-18-2023 Exposure to SARS-CoV-2 (event) Not sure [facility] Start: 03-14-2023 Alcohol Comment caffeine: coff ee 5-6 cups a day [facility] Start: 11-13-2022 Gender identity Identifies as male gender (finding) [facility] Clinical Notes 05-01-2022 to 10-18-2023 Rene Castro [...] emphasis on low-calorie diet Rene Castro MD, [facility] Review of Systems All other systems [...] , Rfl: omega-3 fatty acids-fish oil (One-Per-Day [place]-3) 684-1,200 mg capsule, Take as directed, Disp: [...] discussion and plan. documented in this encounter [facility] Work Phone: 10-18-2023 Instructions Ana Cunningham [...] up 6 months documented in this encounter [facility] Work Phone: 06-30-2023 History of Presen [...] 3 days documented in this encounter [facility] 03-23-2023 History of Presen t illness Narrative [...] emphasis on low-calorie diet Rene Castro MD, [facility] Review of Systems All other systems [...] , Rfl: omega-3 fatty acids-fish oil (One-Per-Day [place]-3) 684-1,200 mg capsule, Take as directed, Disp: [...] Aminotransferase Alanine Aminotransferase documented in this encounter [facility] Work Phone: 03-23-2023 Instructions Millie Hoffmann [...] of your visit. documented in this encounter [facility] Work Phone: 11-14-2022 Note HNO ID: [id number] Author: Deandra Bender MD Service: ? Author [...] or facial palsy H/o Botox injections in [place]-->didn't help No h/o trauma H/o sinus surgery [...] can I get the FL-41 filter? Any [facility] location, (with an optical shop), throughout [place], Email: [email or web address] [facility] in [place], [place], [facility] in [place], [place], [facility] in [place], [place], [facility] in [place], [place], [phone] [email or web address] Botulinum toxin 3 months, Botulinum toxin [...] Bender MD, November 14, 2022 10:00 AM. [facility] 11-14-2022 History of Presen t illness Narrative Here for botox Right eye just started twitching Tears as needed. -rofPatient still having twitching right eye and occasionally the left. Refresh tears four times a day. -rof A/P: Right hemifacial spasm x 2 years Patient doesn't remember h/o bells or facial palsy H/o Botox injections in [place]-->didn't help No h/o trauma H/o sinus surgery [...] can I get the FL-41 filter? Any [facility] location, (with an optical shop), throughout [place], Email: [email or web address] [facility] in [place], [place], [facility] in [place], [place], [facility] in [place], [place], [employer] in [place], [place], www[email or web address] F/u Botulinum toxin 3 months, Botulinum toxin [...] 2022 10:00 AM. documented in this encounter [facility] 08-08-2022 Note HNO ID: [id number] Author: Deandra Bender MD Service: ? Author [...] Bender MD, August 08, 2022 3:05 PM. [facility] 08-08-2022 History of Presen t illness Narrative Patient still having twitching right eye and occasionally the left. Refresh tears four times a day. -rof A/P: Right hemifacial spasm x 2 years Patient doesn't remember h/o bells or facial palsy H/o Botox injections in [place]-->didn't help No h/o trauma H/o sinus surgery [...] 2022 3:05 PM. documented in this encounter [facility] 08-08-2022 Instructions Deandra Bender MD - 08/08/2022 [...] Recheck next visit documented in this encounter [facility] 06-21-2022 Miscellaneous Notes Notes and MRI orders faxed to [facility]. [facility] today. : 1955 Allergies: Codeine, Codeine-Guaifenesin, and Guaifenesin (home) [phone] (cell) Reason for call: Sasha F:[phone] Asking for the MRI orders and office notes to be faxed over to [facility]. Patient will be having them done there. Patient last appointment: Visit date not found The patients preferred pharmacy has been captured for this encounter? not asked Delores Mccollum documented in this encounter [facility] 06-21-2022 Note HNO ID: [id number] Author: Deandra Bender MD Service: ? Author Type: Physician Type: Progress Notes Filed: 06/21/2022 9:08 AM Note Text: Twitching right eye x two years. Both upper and lower lid. Trouble reading because of it. +tearing and burning. Refresh four times a day. -rof A/P: Right hemifacial spasm x 2 years Patient doesn't remember h/o bells or facial palsy H/o Botox injections in [place]-->didn't help No h/o trauma H/o sinus surgery [...] Bender MD, June 21, 2022 9:05 AM. [facility] 06-21-2022 Instructions Deandra Bender MD - [...] and get MRI documented in this encounter [facility] 06-21-2022 History of Presen t illness Narrative Twitching right eye x two years. Both upper and lower lid. Trouble reading because of it. +tearing and burning. Refresh four times a day. -rof A/P: Right hemifacial spasm x 2 years Patient doesn't remember h/o bells or facial palsy H/o Botox injections in [place]-->didn't help No h/o trauma H/o sinus surgery [...] 2022 9:05 AM. documented in this encounter [facility] 05-01-2022 Note HNO ID: [id number] Author: Mau Randle OD Service: ? Author Type: [employer] Type: Progress Notes Filed: 05/01/2022 9:22 [...] of its relevant components. 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 [facility] Diagnosis Clonic hemifacial spasm, right- Primary [facility]* Diagnosis Clonic hemifacial spasm, right- Primary [facility] noteNo assessment information available[facility] Work Phone: Evaluation note* Diagnosis Coronary [...] serious comorbidity present documented in this encounter [facility] Work Phone: Evaluation note* Diagnosis Acute exacerbation of chronic obstructive pulmonary disease (CMS/HCC)- Primary Obstructive chronic bronchitis with exacerbation [facility] Coronary artery disease involving holy [...] hazards to health documented in this encounter [facility] Work Phone: Hospital Discharge instructions Additional Instructions If your symptoms return/worsen or you develop any further concerns or symptoms please see your doctor or return to the emergency department immediately.[facility] Work Phone: Reason for referral (narrative)* [...] Follow Up In Cardiology Rene Castro MD [facility] [address] [place] [address] Rene Castro MD [address] [place] [address] [address] [place] [address] Referral ID Status Reason Start Date Expiration Date V isits Requested Visits Authorized [id number] Authorized 03/23/2023 03/22/2024 1 1 [facility] Work Phone: Reaoof for referral (narrative)* Consultation (Routine) - Authorized Specialty Diagnoses / Procedures Referred By Contac t Referred To Contact Cardiology Diagnoses 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 Procedures Follow Up In Cardiology Rene Castro MD [address] [place] [address] Rene Castro MD [address] [place] [address] Referral ID Status Reason Start Date Expiration Date V isits Requested Visits Authorized [id number] Authorized 10/18/2023 10/17/2024 1 1 [facility] Work Phone: Chief Complaint * DEMARCUS [...] infarction with no ischemia. EF in the [id number]. He remains compensated as for ischemic cardiomyopathy. [...] on low-calorie diet * Rene Castro MD, [facility] Family History No Family History Records [...] W/O & W/CONTRAST Deandra Troncoso MD [address] [place] [address] Mr Imaging Referral ID Status Reason Start Date Expiration Date Visits Requested Visits Authorized [id number] Pending Review Auto-Generat ed Referral 06/21/2022 07/21/2023 1 1 Specialty Diagnoses / Procedures Referred By Contac t Referred To Contact MR IMAGING Diagnoses Paralytic strabismus Procedures MRI BRAIN WO/W IVCON MRI BRAIN BRAIN STEM W/O W/CONTRAST MATERIAL Deandra Bender MD [address] [place] [address] Mr Imaging Referral ID Status Reason Start Date Expiration Date Visits Requested Visits Authorized [id number] Pending Review Auto-Generat ed Referral 06/21/2022 07/21/2023 [...] or prosecute any alcohol or drug abuse patient.[facility] the event this information is protected by the Federal Confidentiality of Alcohol and Drug Abuse Patient Records regulations: The Federal rules restrict any use of the information to criminally investigate or prosecute any alcohol or drug abuse patient.[facility] System[facility] the event this information is protected by the Federal Confidentiality of Alcohol and Drug Abuse Patient Records regulations: The Federal rules restrict any use of the information to criminally investigate or prosecute any alcohol or drug abuse patient.[facility] System[facility] the event this information is protected by the Federal Confidentiality of Alcohol and Drug Abuse Patient Records regulations: The Federal rules restrict any use of the information to criminally investigate or prosecute any alcohol or drug abuse patient.[facility] SystemIn the event this information is protected by the Federal Confidentiality of Alcohol and Drug Abuse Patient Records regulations: The Federal rules restrict any use of the information to criminally investigate or prosecute any alcohol or drug abuse patient.[facility] Reason for Visit (unrecogniz ed section and [...] , up to 100 units Procedures BOTOX [id number] [place] [address] [place] [address] Deandra Bender MD [address] [place] [address] Referral ID Status Reason Start Date Expiration Date V isits Requested Visits Authorized [id number] Authorized 11/14/2022 05/27/2023 99 99 Reason Comments [...] Follow Up In Cardiology Rene Castro MD [address] [place] [address] 2, [address] [address] Rene Castro MD [address] [place] [address] 2, [address] [address] Referral ID Status Reason Start Date Expiration Date V isits Requested Visits Authorized [id number] Authorized 03/23/2023 03/22/2024 1 1 (unrecognized sect ion and content) No Status Records FoundNo Status Records FoundNo Status Records FoundNo Status Records FoundNo Status Records FoundNo Status Records FoundNo Status Records FoundNo Status Records Found INFORMATION SOURCE (unrecogn ized section and content) DATE CREATED AUTHOR 07/16/2022 [facility] dical Specialist DATE CREATED AUTHOR AUTHOR'S ORGANIZ ATION 09/09/2022 [employer] DATE CREATED AUTHOR AUTHOR'S ORGANIZ ATION 11/14/2022 [facility] DATE CREATED AUTHOR AUTHOR'S ORGANIZ ATION 02/12/2023 [facility] ical Center DATE CREATED AUTHOR AUTHOR'S ORGANIZ ATION 02/28/2023 [facility] DATE CREATED AUTHOR AUTHOR'S ORGANIZ ATION 06/25/2023 [facility] DATE CREATED AUTHOR AUTHOR'S ORGANIZ ATION 01/03/2024 [facility] dical Specialists EPIC DATE CREATED AUTHOR AUTHOR'S ORGANIZ ATION 01/04/2024 [facility] [place] [facility] [employer] (unrecognized sec tion and content) Team Status: Active Member Role Status Dates Sera Flower MD Primary Care Provider Active Team Status: Inactive Member Role Status Dates Sera Flower MD Primary Care Provider, Other Provider Active Rene Castro MD Attending Provider Active Meal Attendant Relationship Specialty Start Date End Date Sera Flower MD [address] [place] [address] PCP - General 02/16/21 Team Status: Inactive Member Role Status Dates Sera Flower MD Primary Care Provider Active St art: June 14, 2023 End: June 14, 2023 Jasepr Martinez DO Emergency Provider Active Start: June 14, 2023 End: June 14, 2023 Meal Attendant Relationship Specialty Start Date End Date Sera Flower MD [address] [place] [address] PCP - [employer] 1/1/23 Sera Flower MD [address] [place] [address] PCP - General Internal Medicine 10/03/22 Meal Attendant Relationship Specialty Start Date End Date Sera Flower MD [address] [place] [id number] PCP - General 02/16/21 Goals (unrecognized section [...] ON THE PRIMARY CLINICAL RECORDS. [facility]. provides no warranty or guarantee of the accuracy or completeness of information in this document.
[2024-02-15 18:17] VITALS: BP 127/67; PULSE 83; TEMP 37.2; O2SAT 96; BMI 35.2
[2024-02-15] MEDS: CARVEDILOL 6.25 MG TABLET PO (20:48)
[2024-02-15 21:20] VITALS: PULSE 84; O2SAT 96
[2024-02-15] MEDS: IPRATROPIUM/ALBUTEROL SULFATE 3 ML AMPUL.NEB IH (21:20)
[2024-02-15] MEDS: SODIUM CHLORIDE 0.9% INHALATION 3 ML NEB IH (21:20)
[2024-02-16 00:11] VITALS: BP 169/70; PULSE 82; TEMP 36.6; O2SAT 93
[2024-02-16] MEDS: 0.9 % SODIUM CHLORIDE 1,000 ML 200 ML IV ×2 (01:53→06:54)
[2024-02-16 04:00] VITALS: BP 142/74; PULSE 75; TEMP 36.4; O2SAT 96
[2024-02-16] MEDS: OMEPRAZOLE 20 MG CAPSULE.DR PO (06:00)
[2024-02-16 07:24] VITALS: BP 158/80; PULSE 72; TEMP 36.4; O2SAT 95
[2024-02-16] MEDS: LOSARTAN POTASSIUM 50 MG TABLET PO (08:27)
[2024-02-16] MEDS: CARVEDILOL 6.25 MG TABLET PO (08:27)
[2024-02-16] MEDS: ACETAMINOPHEN 325 MG TABLET 650 MG PO (08:27)
[2024-02-16] MEDS: TAMSULOSIN HCL 0.4 MG CAPSULE PO (08:27)
[2024-02-16] MEDS: IPRATROPIUM/ALBUTEROL SULFATE 3 ML AMPUL.NEB IH (09:17)
[2024-02-16] MEDS: SODIUM CHLORIDE 0.9% INHALATION 3 ML NEB IH (09:17)
[2024-02-16 09:18] LABS: Basophils Percent Auto 0.1 % (0.2-2.0); Eosinophils Absolute Auto 0.2 10^3/uL (0.0-0.7); Eosinophils Percent Auto 1.1 % (0.9-7.0); Hemoglobin 12.3 g/dL (14.0-18.0); Immature Granulocytes Abs Auto 0.05 10^3/uL (0.00-0.03); Immature Granulocytes Pct Auto 0.3 % (0.0-0.5); Lymphocytes Absolute Auto 1.3 10^3/uL (1.2-3.8); Lymphocytes Percent Auto 8.8 % (20.5-60.0); Mean Corpuscular HGB Conc 34.2 g/dL (29.9-35.2); Mean Corpuscular Hemoglobin 29.1 pg (25.9-34.0); Mean Corpuscular Volume 85.3 fL (80.0-94.0); Mean Platelet Volume 10.5 fL (9.5-13.5); Monocytes Absolute Auto 0.9 10^3/uL (0.3-0.8); Monocytes Percent Auto 5.9 % (1.7-12.0); Neutrophils Absolute Auto 12.5 10^3/uL (1.4-6.5); Neutrophils Percent Auto 83.8 % (43.0-75.0); Platelet Count 123 10^3/uL (150-450); Red Blood Count 4.22 10^6/uL (4.70-6.10); Red Cell Distribution Width 14.3 % (11.0-15.0)
[2024-02-16 09:19] VITALS: PULSE 72; PULSE 85; O2SAT 96
[2024-02-16 09:29] LABS: Alanine Aminotransferase 28 U/L (16-63); Albumin Level 2.8 g/dL (3.4-5.0); Alkaline Phosphatase 52 U/L (46-116); Anion Gap 12.6; Aspartate Amino Transferase 20 U/L (15-37); BUN Creatinine Ratio 8.9; Bilirubin Total 0.7 mg/dL (0.2-1.0); Calcium 7.8 mg/dL (8.5-10.1); Carbon Dioxide 23.3 mmol/L (21.0-32.0); Chloride 101 mmol/L (98-107); Estimated GFR (African America >60 (>=60); Estimated GFR (Non-African Ame >60 (>=60); Globulin 2.7 g/dL; Glucose 198 mg/dL (74-106); Potassium 3.9 mmol/L (3.5-5.1); Sodium 133 mmol/L (136-145); Total Protein 5.5 g/dL (6.4-8.2)
[2024-02-16] MEDS: FUROSEMIDE 40 MG TABLET PO (09:49)
[2024-02-16] MEDS: ENOXAPARIN SODIUM 40 MG/0.4 ML SYRINGE SUBQ (09:50)
--- NOTE | 2024-02-16 11:43 | PM.HP ---
HPI H&P: HPI History of Present Illness Chief complaint: Dizziness, Shaking Generalized Weakness Narrative: HPI and Hospital Course: 69-year-old male with history of heart failure with reduced ejection fraction, COPD, interstitial lung disease/pulmonary fibrosis was in his usual state of health and was driving when he suddenly developed chills/generalized weakness and shakes. Prior to symptom onset, he was in his usual state of health and denies fever, cough, shortness of breath, abdominal pain, constipation, diarrhea, urinary symptoms. He decided to come to ED for further evaluation and his workup was unremarkable except for significant leukocytosis of 25,000 but no source of infection was identified. Patient was admitted overnight for observation and was treated with IV hydration. Patient is more or less close to his baseline the morning and has no active complaints to offer. His leukocytosis has also improved down to 15,000. Patient at this time has no need for inpatient monitoring or treatment. He is medically stable for discharge. He was instructed to return to [place] if he developed any signs or symptoms of an infection. Patient will need to f/u with his PCP in one week Opioid HPI Opioid Management Most Recent Pain and Opioid Data: Last Pain Scale 3 02/16/24 09:49 Last Pain Assessment 02/16/24 11:49 Last MAR Pain Assessment 02/16/24 09:49 Last ORT Total Score 0 02/15/24 18:17 Last ORT Risk Category Low Risk 02/15/24 18:17 Review of Systems ROS Status of ROS 10 or more systems reviewed and unremarkable except as noted in history and below [facility] Medical History (Updated 02/16/24 @ 11:45 by Shaikh Balwinder MD) Pneumonia due to COVID-19 virus ?U07.1 - COVID-19 (ICD-10) ?J12.82 - Pneumonia due to coronavirus disease 2019 (ICD-10) COVID-19 ?U07.1 - COVID-19 (ICD-10) Acute on chronic congestive heart failure ?I50.9 - Heart failure, unspecified (ICD-10) COPD exacerbation ?J44.1 - Chronic obstructive pulmonary disease with (acute) exacerbation (ICD-10) Congestive heart failure ?I50.9 - Heart failure, unspecified (ICD-10) BPH (benign prostatic hyperplasia) ?N40.0 - Benign prostatic hyperplasia without lower urinary tract symptoms (ICD-10) CAD (coronary artery disease) ?I25.10 - Atherosclerotic heart disease of [place] coronary artery without angina pectoris (ICD-10) GERD (gastroesophageal reflux disease) ?K21.9 - Gastro-esophageal reflux disease without esophagitis (ICD-10) Hypertension ?I10 - Essential (primary) hypertension (ICD-10) COPD (chronic obstructive pulmonary disease) ?J44.9 - Chronic obstructive pulmonary disease, unspecified (ICD-10) Bronchitis ?J40 - Bronchitis, not specified as acute or chronic (ICD-10) Emphysema of lung ?J43.9 - Emphysema, unspecified (ICD-10) Heart attack ?I21.9 - Acute myocardial infarction, unspecified (ICD-10) COPD exacerbation ?J44.1 - Chronic obstructive pulmonary disease with (acute) exacerbation (ICD-10) COVID-19 ?U07.1 - COVID-19 (ICD-10) Surgical History H/O sinus surgery ?Z98.890 - Other specified postprocedural states (ICD-10) H/O shoulder surgery ?Z98.890 - Other specified postprocedural states (ICD-10) H/O heart artery stent ?Z95.5 - Presence of coronary angioplasty implant and graft (ICD-10) Family History Aunt Family history of cancer Mother Family history of diabetes mellitus Brother Family history of hypertension Father Family history of hypertension Social History Within the past year, how often did you have a drink containing alcohol: never Score interpretation: A score less than 4 is consistent with normal alcohol consumption. Smoking status: Former smoker Non-prescribed substance use: denies use Previous occupational history: [employer] Known occupational exposures/hazards: No Highest level of school completed/degree received: high school graduate Are you now , , , , never or living with a partner: In a typical week, how many times do you talk on the telephone with family, friends, or neighbors: 3 or more times per week How often do you get together with friends or relatives: 3 or more times per week How often do you attend latter-day or christianity services: never Little interest or pleasure in doing things: not at all Feeling down, depressed, or hopeless: not at all Feel stressed/tense/nervous/anxious/difficulty sleeping: not at all Do you think of yourself as: straight/heterosexual Gender Identity: male Meds Home Medications and Allergies Home Medications ?Medication ?Instructions ?Recorded ?Confirmed ?Type carvedilol 6.25 mg tablet 6.25 mg PO Q12H 07/22/23 02/15/24 History losartan 50 mg tablet 50 mg PO DAILY 07/22/23 02/15/24 History omeprazole 20 mg capsule,delayed 20 mg PO Q24H 07/22/23 02/15/24 History release tamsulosin 0.4 mg capsule 0.4 mg PO DAILY 07/22/23 02/15/24 History albuterol sulfate 90 mcg/actuation 2 inh inhalation Q6H PRN shortness 12/25/23 02/15/24 Rx aerosol inhaler (Ventolin HFA) of breath or wheezing #6.7 grams furosemide 40 mg tablet (Lasix) 40 mg PO DAILY #30 tabs 12/25/23 02/15/24 Rx ipratropium 0.5 mg-albuterol 3 mg 3 ml inhalation Q6H PRN shortness 02/02/24 02/15/24 Rx (2.5 mg base)/3 mL nebulization of breath #90 mL soln sodium chloride 0.9 % for 3 ml inhalation BID 02/15/24 02/15/24 History nebulization Allergies Allergy/AdvReac Type Severity Reaction Status Date / Time codeine Allergy Intermediate Hallucinati Verified 02/15/24 18:16 ng Exam Constitutional Vital Signs, click to edit/add: Last Vital Signs Temp 97.5 F L 02/16/24 07:24 Pulse 72 02/16/24 09:19 Resp 20 02/16/24 09:19 BP 158/80 H 02/16/24 07:24 Pulse Ox 96 02/16/24 09:19 O2 Del Method Room Air 02/16/24 09:19 Documenting provider has reviewed patient's vital signs: yes Common normals: no apparent distress and oriented x3 General appearance: cooperative HENMT Common normals: normocephalic and head/scalp atraumatic Head and scalp: normocephalic and atraumatic Eye Common normals: conjunctivae normal and no scleral icterus Conjunctiva: conjunctiva(e) normal Respiratory Common normals: normal respiratory effort and clear to auscultation bilaterally Effort & inspection: able to speak in complete sentences Auscultation: clear to auscultation bilaterally Cardio Common normals: regular rate, S1 normal heart sound and S2 normal heart sound Rate: regular rate Heart sounds: S1 normal and S2 normal GI Common normals: Normal to inspection, nondistended, normoactive bowel sounds present, soft to palpation, non-tender and no hepatosplenomegaly Palpation: soft and no hepatosplenomegaly Extremity Common normals: no clubbing, cyanosis or edema Neuro Common normals: oriented x3, moves all extremities and no focal motor deficits Psych Common normals: mental status grossly normal, denies hallucinations, denies homicidal ideation and denies suicidal ideation Results Labs Labs: Short CBC 02/15/24 02/16/24 Range/Units 16:07 09:09 WBC 25.8 H 15.0 H (4.0-11.0) 10^3/uL Hgb 14.2 12.3 L (14.0-18.0) g/dL Hct 40.4 L 36.0 L (42.0-54.0) % Plt Count 146 L 123 L (150-450) 10^3/uL BMP 02/15/24 02/16/24 16:07 09:09 Sodium 129 L 133 L Potassium 3.7 3.9 Chloride 95 L 101 Carbon Dioxide 24.8 23.3 BUN 11.0 8.0 Creatinine 1.02 0.90 Glucose 121 H 198 H Calcium 8.4 L 7.8 L Liver Function 02/16/24 Range/Units 09:09 Total Bilirubin 0.7 (0.2-1.0) mg/dL AST 20 (15-37) U/L ALT 28 (16-63) U/L Alkaline Phosphatase 52 (46-116) U/L Albumin 2.8 L (3.4-5.0) g/dL Urine 02/15/24 Range/Units 15:56 Urine Color Lt. yellow (YELLOW) Urine Clarity Clear (CLEAR) Urine pH 6.5 (5.0-9.0) Ur Specific [place] 1.010 (1.005-1.025) Urine Protein Negative (NEG/TRACE) mg/dL Urine Glucose (UA) Negative (NEGATIVE) mg/dL Assessment and Plan Assessment and Plan (1) SIRS (systemic inflammatory response syndrome): Assessment and Plan: WBC (25K), HR > 90, RR> 20. No source of infection identified. Leukocytosis improved - now 15K, and patient has no evidence of hemodynamic instability. No signs or symptoms that would help localize the underlying infection. Likely viral prodrome/illness. Stable for discharge and need f/u with PCP in one week (2) Leukocytosis: Assessment and Plan: Improved overnight but still elevated. no source of infection identified. F/u with PCP in 1 week. No need for abx. Qualifiers: Leukocytosis type: leukemoid reaction Qualified Code(s): D72.823 - Leukemoid reaction (3) Generalized weakness: Assessment and Plan: Improved. No active symptoms present. Stable for discharge. (4) Congestive heart failure: Assessment and Plan: Stopped IVF in the morning as patient was developing early signs and symptoms of volume overload. Resumed oral Lasix. Stable, monitor and f.u as outpatient as clinically indicated. Qualifiers: Heart failure type: systolic Heart failure chronicity: chronic Qualified Code(s): I50.22 - Chronic systolic (congestive) heart failure (5) Hypertension: Assessment and Plan: C/w home medications. Qualifiers: Hypertension type: primary hypertension Qualified Code(s): I10 - Essential (primary) hypertension (6) COPD (chronic obstructive pulmonary disease): Assessment and Plan: Stable. no evidence of bronchospasm. Fu as outpatient. Qualifiers: COPD type: unspecified COPD Qualified Code(s): J44.9 - Chronic obstructive pulmonary disease, unspecified (7) CAD (coronary artery disease): Assessment and Plan: No evidence of active cardiac ischemia. f/u as outpatient. Qualifiers: Coronary Disease-Associated Artery/Lesion type: [place] artery [place] vs. transplanted heart: [place] heart Associated angina: without angina Qualified Code(s): I25.10 - Atherosclerotic heart disease of [place] coronary artery without angina pectoris (8) BPH (benign prostatic hyperplasia): Assessment and Plan: C/w Flomax Qualifiers: Lower urinary tract symptom presence: symptoms absent Qualified Code(s): N40.0 - Benign prostatic hyperplasia without lower urinary tract symptoms (9) GERD (gastroesophageal reflux disease): Assessment and Plan: C/w omeprazole. Qualifiers: Esophagitis presence: without esophagitis Qualified Code(s): K21.9 - Gastro-esophageal reflux disease without esophagitis
--- NOTE | 2024-02-18 14:02 | CM.DCFOLLOWU ---
Patient is back in hospital on 02/17/24
== END 2024-02-16 13:04 | disposition home or self-care (01) ==
LOC: ER 17:35 → MS 18:04
PROVIDERS: Admitting Provider Internal Medicine; Emergency Provider Emergency Medicine; PCP Internal Medicine; Visit Provider Internal Medicine
DX: R53.1 Weakness (principal); D72.823 Leukemoid reaction; R65.10 Systemic inflammatory response syndrome (SIRS) of non-infectious origin without acute organ dysfunction; I11.0 Hypertensive heart disease with heart failure; I50.22 Chronic systolic (congestive) heart failure; J44.9 Chronic obstructive pulmonary disease, unspecified; I25.10 Atherosclerotic heart disease of native coronary artery without angina pectoris; N40.0 Benign prostatic hyperplasia without lower urinary tract symptoms; K21.9 Gastro-esophageal reflux disease without esophagitis; E66.9 Obesity, unspecified; Z68.35 Body mass index [BMI] 35.0-35.9, adult; Z79.899 Other long term (current) drug therapy; Z87.891 Personal history of nicotine dependence; Z20.822 Contact with and (suspected) exposure to COVID-19
CPT/HCPCS: 36415; 71045; 80048; 80053; 81001; 85007; 85025; 85027; 87040; 87086; 87811; 93005; 94640; 94761; 96372; 99285; G0378; J1650

== ENCOUNTER 2024-02-17 10:27 | Inpatient (IN) | payer MEDICARE, OTHER, SELFPAY ==
[2024-02-17] VITALS (20 sets, daily range): BP systolic 120–148; BP diastolic 58–77; PULSE 73–86; TEMP 36.6–38.3; O2SAT 94–98; BMI 35.0; BMI 35.6
--- OUTSIDE RECORDS SUMMARY | 2024-02-17 10:39 | XMS_ITS | CCD ---
Author Organization [facility] Care Team Providers Care Zone Manager Name Role Phone Sera Flower Unavailable Unavailable Unavailable Unavailable Primary Care Provider Unavailabl e Unavailable Unavailable DEANDRA BENDER Attending Unavailable DEANDRA BENDER Referring Unavailable MAU RANDLE Attending Unavailable DEANDRA BENDER Attending Unavailable DEANDRA BENDER Attending Unavailable DEANDRA BENDER Referring Unavailable MD Sera Flower Primary Care Provider [phone] MD Sera Flower Other Provider MD Rene Castro Attending Provider Dr. Sera Flower Primary Care Unavailab Rene Nobles Referring Unavailable Anjel, Dr. Sera Frost Primary Care Unavailab Rene Nobles Attending Unavailable Dr. Sera Flower Primary Care Unavailab Rene Nobles Attending Unavailable Anjel, Dr. Sera Frost Primary Care Unavailab Rene Nobles Attending Unavailable Sera Flower MD Primary Care Provider [phone] MD Sera Flower Primary Care Provider DO Jasper Martinez Emergency Provider Jasper Martinez Admitting Unavailable Jasper Martinez Attending Unavailable Sera Flower Primary Care Unavailable Rene Castro Attending Unavailable Sera Flower Primary Care Unavailable Sera Flower Consulting Rene Sauer Admitting Unavailable Sera Flower MD Unavailable Sera Flower MD Primary Care Provider [phone] RENZO WEAVER Attending Unavailable SERA FLOWER Referring [...] 6 Vomiting, Unknown, Nausea And Vomiting, Other [facility] (6 sources) Codeine / guaiFENesin; Translations: [CODEINE-GUAIFEN ESIN] Drug Allergy 1 Other: See Comments [facility] (6 sources) guaiFENesin; Translations: [GUAIFENESIN] Drug Allergy 3 Other: See Comments [facility] (1 source) Codeine Drug Allergy 4 [facility] Repository (2 sources) guaiFENesin Drug Allergy 3 Other [facility] Medications Current Medications Medication Drug Class(es) Dates Sig (Normalized) Sig (Original) albuterol 0.83 mg/ml inhalation solution (14 sources) beta2-Adrenergic Agonist Start: 06-21-2023 albuterol (2.5 MG/3ML) 0.083% nebulizer solution Indications: Chronic obstructive pulmonary disease, unspecified COPD type ([facility]) Take 3 mL (2.5 mg) [...] 12:00am Start: 01-17-2022 take 1 capsule by [facility] three times daily for cough benzonatate (TESSALON PERLE) 100 mg capsule take 1 capsule by mouth three times a day if needed for cough SWALLOW WHOLE 0 01/17/2022 Active Comment on above: take 1 capsule by [facility] three times a day if needed [...] t ongue. omega-3 fatty acids-fish oil (One-Per-Day [place]-3) 684-1,200 mg capsule (2 sources) omega-3 fatty acids-fish oil (One-Per-Day [place]-3) 684-1,200 mg capsule Take as directed Active omega-3 fatty ac ids-fish oil (One-Per-Day [place]-3) 684-1,200 mg capsule Take as directed 0 [...] mg tablet Indications: Coronary artery disease involving [place] coronary artery of [place] heart without angina pectoris , Mixed hyperlipidemia [...] mg by inhalation every eight hours Ipratropium Mina Discontinued 0.5 MG INHALATION Q8H April 26, [...] 0 Refills: 0 Ordered: 07-Sep-2022 DO Active Reno 3 CAPS (2 sources) Reno 3 CAPS MARLEN E DIRECTED. Quantity: 0 [...] [Coronary atherosclerosis of unspecified type of vessel, [place] or graft] Onset: 01-03-2023 03-23-2023 Chronic Disorders [...] aPTT Coag (PPP) [Time] 30.2 s 25.1-36.5 [facility] Comment on above: A hematocrit value g reater than 55% may lead to inaccurate results in coagulation testing. Patients having hematocrit values >55% require a special collection tube for coagulation studies. Please contact the laboratory at [phone] for redraw instructions. Alanine aminotransferase [En zymatic activity/volume] in Serum or PlasmaOrdered By: Jasper Martinez on 06-14-2023 ALT [Catalytic activity/Vol] 37 U/L 7-52 [facility] Albumin [Mass/volume] in Ser um or Plasma by Bromocresol green (BCG) dye binding methoOrdered By: Jasper Martinez on 06-14-2023 Albumin BCG dye [Mass/Vol] 4.1 g/dL 3.5-5.7 [facility] Alkaline phosphatase [Enzyma tic activity/volume] in Serum or PlasmaOrdered By: Jasper Martinez on 06-14-2023 ALP [Catalytic activity/Vol] 59 U/L 34-104 [facility] Aspartate aminotransferase [ Enzymatic activity/volume] in Serum or PlasmaOrdered By: Jasper Martinez on 06-14-2023 AST [Catalytic activity/Vol] 29 U/L 13-39 [facility] B-Type Natriuretic Peptideon 06-14-2023 Natriuretic peptide B (Bld) [Mass/Vol] 67.0 pg/mL Normal 5-100 [facility] Comment on above: Result Comment: PERF ORMED BY: [place] [address] PATHOLOGIST METALLURGICAL INSPECTOR RAPHAEL RANGEL M.D. Performed By: #### C OVID19 FLU RSV, CEPHEID NEG #### [address] Basophils Auto (Bld) [#/Vol] Ordered By: Jasper Martinez on 06-14-2023 Basophils (Bld) [#/Vol] 0.0 10*3/uL 0.0-0.2 [facility] Basophils/100 WBC Auto (Bld) Ordered By: Jasper Martinez on 06-14-2023 Basophils/100 WBC (Bld) 0.6 % . [facility] Bilirubin.total [Mass/volume ] in Serum or PlasmaOrdered By: Jasper Martinez on 06-14-2023 Bilirubin [Mass/Vol] 0.4 mg/dL 0.3-1.0 [facility] COVID CepheidOrdered By: Asya Martinez on 06-14-2023 SARS-CoV-2 (COVID-19) Ab IA Ql Negative Negative [facility] Comment on above: This is a duplicate Cepheid Xpert Xpress CoV-2/Flu/RSV Plus RNA by RT-PCR result to be used for statistical tracking purpose only. SARS-CoV-2 (COVID-19) RNA VERONA+probe Ql (Unsp spec) [facility] COVID-19 / Flu A/B / RSV [...] or Cepheid Disclaimer revoked sooner. PERFORMED BY: [place] [address] PATHOLOGIST METALLURGICAL INSPECTOR RAPHAEL RANGEL M.D. Normal [facility] Comment on above: Performed By: #### C OVID19 FLU RSV, CEPHEID NEG #### [place] [id number] [facility] Calcium [Mass/volume] in Ser um or PlasmaOrdered By: Jasper Martinez on 06-14-2023 Calcium [Mass/Vol] 9.0 mg/dL 8.6-10.3 [facility] Carbon dioxide, total [Moles /volume] in Serum or PlasmaOrdered By: Jasper Martinez on 06-14-2023 CO2 [Moles/Vol] 23.4 mmol/L 21.0-31.0 [facility] Cepheid COVID PCR Negativeon 06-14-2023 SARS-CoV-2 (COVID-19) RNA VERONA+probe Ql (Unsp spec) Negative Normal Negative [facility] Comment on above: Result Comment: This is a duplicate Cepheid Xpert Xpress CoV-2/Flu/RSV Plus RNA by RT-PCR result to be used for statistical tracking purpose only. PERFORMED BY: [address] [address] PATHOLOGIST METALLURGICAL INSPECTOR RAPHAEL RANGEL M.D. Performed By: #### C OVID19 FLU RSV, CEPHEID NEG #### [facility] [address] Chloride [Moles/volume] in S taylor or PlasmaOrdered By: Jasper Martinez on 06-14-2023 Chloride [Moles/Vol] 105 mmol/L 98-107 [facility] Complete Blood Count Auto Di ffon 06-14-2023 Basophils (Bld) [#/Vol] 0.0 10*3/uL Normal 0.0-0.2 [facility] Comment on above: Result Comment: PERF ORMED BY: [place] [address] PATHOLOGIST METALLURGICAL INSPECTOR RAPHAEL RANGEL M.D. Performed By: #### B EQUIPMENT MAINT TECH, CK, MG, CBC, HS TROP, PTT, PT, CMP #### [address] Basophils/100 WBC (Bld) 0.6 % Normal . [facility] Comment on above: Performed By: #### B EQUIPMENT MAINT TECH, CK, MG, CBC, HS TROP, PTT, PT, CMP #### [address] Eosinophils (Bld) [#/Vol] 0.8 10*3/uL High 0.0-0.45 [facility] Comment on above: Performed By: #### B EQUIPMENT MAINT TECH, CK, MG, CBC, HS TROP, PTT, PT, CMP #### [address] Eosinophils/100 WBC (Bld) 9.6 % Normal . [facility] Comment on above: Performed By: #### B EQUIPMENT MAINT TECH, CK, MG, CBC, HS TROP, PTT, PT, CMP #### [address] Erythrocyte distribution width (RBC) [Ratio] 14.4 % Normal 12.0-14.8 [facility] Comment on above: Performed By: #### B EQUIPMENT MAINT TECH, CK, MG, CBC, HS TROP, PTT, PT, CMP #### [address] Hematocrit (Bld) [Volume fraction] 40.8 % Normal 38.8-50.0 [facility] Comment on above: Performed By: #### B EQUIPMENT MAINT TECH, CK, MG, CBC, HS TROP, PTT, PT, CMP #### [address] Hemoglobin (Bld) [Mass/Vol] 14.3 g/dL Normal 13.0-17.0 [facility] Comment on above: Performed By: #### B EQUIPMENT MAINT TECH, CK, MG, CBC, HS TROP, PTT, PT, CMP #### [address] Lymphocytes (Bld) [#/Vol] 1.5 10*3/uL Normal 1.00-4.8 [facility] Comment on above: Performed By: #### B EQUIPMENT MAINT TECH, CK, MG, CBC, HS TROP, PTT, PT, CMP #### [address] Lymphocytes/100 WBC (Bld) 18.5 % Normal . [facility] Comment on above: Performed By: #### B EQUIPMENT MAINT TECH, CK, MG, CBC, HS TROP, PTT, PT, CMP #### [address] MCH (RBC) [Entitic mass] 30.1 pg Normal 27.5-35.2 [facility] Comment on above: Performed By: #### B EQUIPMENT MAINT TECH, CK, MG, CBC, HS TROP, PTT, PT, CMP #### [address] MCV (RBC) [Entitic vol] 86.2 fL Normal 83.5-101 [facility] Comment on above: Performed By: #### B EQUIPMENT MAINT TECH, CK, MG, CBC, HS TROP, PTT, PT, CMP #### [address] Mean Corpuscular HGB Conc 34.9 g/dL Normal 32.5-35.6 [facility] Comment on above: Performed By: #### B EQUIPMENT MAINT TECH, CK, MG, CBC, HS TROP, PTT, PT, CMP #### [address] Monocytes (Bld) [#/Vol] 0.8 10*3/uL Normal 0.0-0.8 [facility] Comment on above: Performed By: #### B EQUIPMENT MAINT TECH, CK, MG, CBC, HS TROP, PTT, PT, CMP #### [address] Monocytes/100 WBC (Bld) 16.39 % Normal 0.00-20.00 [facility] Comment on above: Performed By: #### B EQUIPMENT MAINT TECH, CK, MG, CBC, HS TROP, PTT, PT, CMP #### [address] Monocytes/100 WBC (Bld) 10.1 % Normal . [facility] Comment on above: Performed By: #### B EQUIPMENT MAINT TECH, CK, MG, CBC, HS TROP, PTT, PT, CMP #### [address] Neutrophils (Bld) [#/Vol] 4.9 10*3/uL Normal 1.8-7.7 [facility] Comment on above: Performed By: #### B EQUIPMENT MAINT TECH, CK, MG, CBC, HS TROP, PTT, PT, CMP #### [address] Neutrophils/100 WBC (Bld) 61.2 % Normal . [facility] Comment on above: Performed By: #### B EQUIPMENT MAINT TECH, CK, MG, CBC, HS TROP, PTT, PT, CMP #### [address] NRBC% 0.1 /100{WBC} Normal 0-0.5 [facility] Comment on above: Performed By: #### B EQUIPMENT MAINT TECH, CK, MG, CBC, HS TROP, PTT, PT, CMP #### [address] Platelet mean volume (Bld) [Entitic vol] 8.4 fL Normal 6.6-10.1 [facility] Comment on above: Performed By: #### B EQUIPMENT MAINT TECH, CK, MG, CBC, HS TROP, PTT, PT, CMP #### [facility] [address] Platelets (Bld) [#/Vol] 181 10*3/uL Normal 150-450 [facility] Comment on above: Performed By: #### B EQUIPMENT MAINT TECH, CK, MG, CBC, HS TROP, PTT, PT, CMP #### [facility] [address] RBC (Bld) [#/Vol] 4.74 10*6/uL Normal 3.90-5.60 [facility] Comment on above: Performed By: #### B EQUIPMENT MAINT TECH, CK, MG, CBC, HS TROP, PTT, PT, CMP #### [address] WBC (Bld) [#/Vol] 8.1 10*3/uL Normal 4.1-10.5 [facility] Comment on above: Performed By: #### B EQUIPMENT MAINT TECH, CK, MG, CBC, HS TROP, PTT, PT, CMP #### [facility] [address] Comprehensive Metabolic Pane maria esther 06-14-2023 Albumin [Mass/Vol] 4.1 g/dL Normal 3.5-5.7 [facility] Comment on above: Performed By: #### B EQUIPMENT MAINT TECH, CK, MG, CBC, HS TROP, PTT, PT, CMP #### [facility] [address] Albumin/Globulin [Mass ratio] 1.6 {ratio} Normal [facility] Comment on above: Performed By: #### B EQUIPMENT MAINT TECH, CK, MG, CBC, HS TROP, PTT, PT, CMP #### [address] ALP [Catalytic activity/Vol] 59 U/L Normal 34-104 [facility] Comment on above: Performed By: #### B EQUIPMENT MAINT TECH, CK, MG, CBC, HS TROP, PTT, PT, CMP #### [facility] [address] ALT [Catalytic activity/Vol] 37 U/L Normal 7-52 [facility] Comment on above: Performed By: #### B EQUIPMENT MAINT TECH, CK, MG, CBC, HS TROP, PTT, PT, CMP #### [address] Anion gap [Moles/Vol] 11.5 mmol/L Normal 6.0-15.0 [facility] Comment on above: Performed By: #### B EQUIPMENT MAINT TECH, CK, MG, CBC, HS TROP, PTT, PT, CMP #### [address] AST [Catalytic activity/Vol] 29 U/L Normal 13-39 [facility] Comment on above: Performed By: #### B EQUIPMENT MAINT TECH, CK, MG, CBC, HS TROP, PTT, PT, CMP #### [address] Bilirubin [Mass/Vol] 0.4 mg/dL Normal 0.3-1.0 [facility] Comment on above: Performed By: #### B EQUIPMENT MAINT TECH, CK, MG, CBC, HS TROP, PTT, PT, CMP #### [address] Calcium [Mass/Vol] 9.0 mg/dL Normal 8.6-10.3 [facility] Comment on above: Performed By: #### B EQUIPMENT MAINT TECH, CK, MG, CBC, HS TROP, PTT, PT, CMP #### [address] Chloride [Moles/Vol] 105 mmol/L Normal 98-107 [facility] Comment on above: Performed By: #### B EQUIPMENT MAINT TECH, CK, MG, CBC, HS TROP, PTT, PT, CMP #### [address] CO2 [Moles/Vol] 23.4 mmol/L Normal 21.0-31.0 [facility] Comment on above: Performed By: #### B EQUIPMENT MAINT TECH, CK, MG, CBC, HS TROP, PTT, PT, CMP #### [facility] [address] Creatinine [Mass/Vol] 0.89 mg/dL Normal 0.70-1.30 [facility] Comment on above: Performed By: #### B EQUIPMENT MAINT TECH, CK, MG, CBC, HS TROP, PTT, PT, CMP #### [facility] [address] Creatinine Clr Calc Pharm[facility] [address] [facility] Comment on above: Performed By: #### B EQUIPMENT MAINT TECH, CK, MG, CBC, HS TROP, PTT, PT, CMP #### [facility] [address] GFR/1.73 sq M.predicted MDRD (S/P/Bld) [Vol rate/Area] mL/min/{1.73_m2} [facility] Comment on above: Performed By: #### B EQUIPMENT MAINT TECH, CK, MG, CBC, HS TROP, PTT, PT, CMP #### [address] Globulin (S) [Mass/Vol] 2.5 g/dL [facility] Comment on above: Performed By: #### B EQUIPMENT MAINT TECH, CK, MG, CBC, HS TROP, PTT, PT, CMP #### [address] Glucose [Mass/Vol] 144 mg/dL High 70-100 [facility] Comment on above: Result Comment: [facility] Glucose Reference Range is dependent on time and content of last meal. Glucose of more than 200 mg/dL in a nonstressed, ambulatory subject supports the diagnosis of Diabetes Mellitus. ADA recommended reference range Performed By: #### B EQUIPMENT MAINT TECH, CK, MG, CBC, HS TROP, PTT, PT, CMP #### [address] Potassium [Moles/Vol] 3.9 mmol/L Normal 3.5-5.1 [facility] Comment on above: Performed By: #### B EQUIPMENT MAINT TECH, CK, MG, CBC, HS TROP, PTT, PT, CMP #### [address] [place] [address] [place] Protein [Mass/Vol] 6.6 g/dL Normal 6.4-8.9 [facility] Comment on above: Performed By: #### B EQUIPMENT MAINT TECH, CK, MG, CBC, HS TROP, PTT, PT, CMP #### [facility] [address] Sodium [Moles/Vol] 136 mmol/L Normal 136-145 [facility] Comment on above: Performed By: #### B EQUIPMENT MAINT TECH, CK, MG, CBC, HS TROP, PTT, PT, CMP #### [facility] [address] Urea nitrogen [Mass/Vol] 12 mg/dL Normal 7-25 [facility] Comment on above: Performed By: #### B EQUIPMENT MAINT TECH, CK, MG, CBC, HS TROP, PTT, PT, CMP #### [facility] [address] Creatine Kinaseon 06-14-2023 CK [Catalytic activity/Vol] 185 U/L Normal 30-223 [facility] Comment on above: Performed By: #### C OVID19 FLU RSV, CEPHEID NEG #### [address] Creatine kinase [Enzymatic a ctivity/volume] in Serum or PlasmaOrdered By: Jasper Martinez on 06-14-2023 CK [Catalytic activity/Vol] 185 U/L 30-223 [facility] Creatinine [Mass/volume] in Serum or PlasmaOrdered By: Jasper Martinez on 06-14-2023 Creatinine [Mass/Vol] 0.89 mg/dL 0.70-1.30 [facility] ECG 12 lead ECGon 06-14-2023 ECG 12 lead ECG [facility] Main [place] [address] [place] [address] Electrocardiograph Report Signed Patient: Demarcus Panchal MR#: [id number] : 1955 Acct:[id number] Age/Sex: 68 / M ADM Date: 06/14/23 Loc: ER Room: Type: [facility] ER Attending Dr: Ordering Provider: Jasper Martinez [...] sinus rhythm Confirmed by Jasper MARTINEZ DO ([id number]) on 06/14/2023 2:25:14 PM Referred By: Electronically Signed By:Jasper MARTINEZ DO Transcribed By: MUS Signed By Jasper Martinez DO 0 06/14/23 1425 Normal [facility] Eosinophils Auto (Bld) [#/Vo l]Ordered By: Jasper Martinez on 06-14-2023 Eosinophils (Bld) [#/Vol] 0.8 10*3/uL 0.0-0.45 [facility] Eosinophils/100 WBC Auto (Bl d)Ordered By: Jasper Martinez on 06-14-2023 Eosinophils/100 WBC (Bld) 9.6 % . [facility] Erythrocyte distribution wid th Auto (RBC) [Ratio]Ordered By: Jasper Martinez on 06-14-2023 Erythrocyte distribution width (RBC) [Ratio] 14.4 % 12.0-14.8 [facility] Globulin Calc (S) [Mass/Vol] Ordered By: Jasper Martinez on 06-14-2023 Globulin (S) [Mass/Vol] 2.5 g/dL [facility] Glucose [Mass/volume] in Ser um or PlasmaOrdered By: Jasper Martinez on 06-14-2023 Glucose [Mass/Vol] 144 mg/dL 70-100 [facility] Comment on above: ADA recommended refe rence rangeRandom Glucose Reference Range is dependent on time and content of last meal. Glucose of more than 200 mg/dL in a nonstressed, ambulatory subject supports the diagnosis of Diabetes Mellitus. Hematocrit Auto (Bld) [Volum e fraction]Ordered By: Jasper Martinez on 06-14-2023 Hematocrit (Bld) [Volume fraction] 40.8 % 38.8-50.0 [facility] Hemoglobin [Mass/volume] in BloodOrdered By: Jasper Martinez on 06-14-2023 Hemoglobin (Bld) [Mass/Vol] 14.3 g/dL 13.0-17.0 [facility] INR in Platelet poor plasma by Coagulation assayOrdered By: Jasper Martinez on 06-14-2023 INR Coag (PPP) [Relative time] 1.1 {INR} [facility] Comment on above: INR Therapeutic Rang [...] RBC Auto (Bld) [#/Vol] 8.1 10*3/uL 4.1-10.5 [facility] Lymphocytes Auto (Bld) [#/Vo l]Ordered By: Jasper Martinez on 06-14-2023 Lymphocytes (Bld) [#/Vol] 1.5 10*3/uL 1.00-4.8 [facility] Lymphocytes/100 WBC Auto (Bl d)Ordered By: Jasper Martinez on 06-14-2023 Lymphocytes/100 WBC (Bld) 18.5 % . [facility] MCH Auto (RBC) [Entitic mass ]Ordered By: Jasper Martinez on 06-14-2023 MCH (RBC) [Entitic mass] 30.1 pg 27.5-35.2 [facility] MCHC Auto (RBC) [Mass/Vol]Or dered By: Jasper Martinez on 06-14-2023 MCHC (RBC) [Mass/Vol] 34.9 g/dL 32.5-35.6 [facility] MCV Auto (RBC) [Entitic vol] Ordered By: Jasper Martinez on 06-14-2023 MCV (RBC) [Entitic vol] 86.2 fL 83.5-101 [facility] Magnesiumon 06-14-2023 Magnesium [Mass/Vol] 2.0 mg/dL Normal 1.9-2.7 [facility] Comment on above: Result Comment: PERF ORMED BY: [facility] [address] [place] [address] PATHOLOGIST METALLURGICAL INSPECTOR RAPHAEL RANGEL M.D. Performed By: #### B EQUIPMENT MAINT TECH, CK, MG, CBC, HS TROP, PTT, PT, CMP #### [facility] [address] [place] [id number] [facility] Magnesium [Mass/volume] in S taylor or PlasmaOrdered By: Jasper Martinez on 06-14-2023 Magnesium [Mass/Vol] 2.0 mg/dL 1.9-2.7 [facility] Monocyte distribution width [Entitic volume] in Blood by AutomatedOrdered By: Jasper Martinez on 06-14-2023 Monocyte distribution width Auto (Bld) [Entitic vol] 16.39 % 0.00-20.00 [facility] Monocytes Auto (Bld) [#/Vol] Ordered By: Jasper Martinez on 06-14-2023 Monocytes (Bld) [#/Vol] 0.8 10*3/uL 0.0-0.8 [facility] Monocytes/100 WBC Auto (Bld) Ordered By: Jasper Martienz on 06-14-2023 Monocytes/100 WBC (Bld) 10.1 % . [facility] Natriuretic peptide B [Mass/ Vol]Ordered By: Jasper Martinez on 06-14-2023 Natriuretic peptide B (Bld) [Mass/Vol] 67.0 pg/mL 5-100 [facility] Neutrophils Auto (Bld) [#/Vo l]Ordered By: Jasper Martinez on 06-14-2023 Neutrophils (Bld) [#/Vol] 4.9 10*3/uL 1.8-7.7 [facility] Neutrophils/100 WBC Auto (Bl d)Ordered By: Jasper Martinez on 06-14-2023 Neutrophils/100 WBC (Bld) 61.2 % . [facility] No Panel InformationOrdered By: Jasper Martinez on 06-14-2023 Estimated GFR (CKD-EPI) > 60.0 mL/Min [facility] Creatinine Clearance (Chem 92.42 [facility] Nucleated erythrocytes [Pres ence] in Blood by Automated countOrdered By: Jasper Martinez on 06-14-2023 Nucleated RBC Auto Ql (Bld) 0.1 /100{WBC} 0-0.5 [facility] Partial Thromboplastin Timeo n 06-14-2023 aPTT Coag (Bld) [Time] 30.2 s Normal 25.1-36.5 [facility] Comment on above: Result Comment: A he matocrit value greater than 55% may lead to inaccurate results in coagulation testing. Patients having hematocrit values >55% require a special collection tube for coagulation studies. Please contact the laboratory at [phone] for redraw instructions. PERFORMED BY: [place] [address] PATHOLOGIST METALLURGICAL INSPECTOR RAPHAEL RANGEL M.D. Performed By: #### C OVID19 FLU RSV, CEPHEID NEG #### [address] Platelet mean volume Auto (B ld) [Entitic vol]Ordered By: Jasper Martinez on 06-14-2023 Platelet mean volume (Bld) [Entitic vol] 8.4 fL 6.6-10.1 [facility] Platelets Auto (Bld) [#/Vol] Ordered By: Jasper Martinez on 06-14-2023 Platelets (Bld) [#/Vol] 181 10*3/uL 150-450 [facility] Potassium [Moles/volume] in Serum or PlasmaOrdered By: Jasper Martinez on 06-14-2023 Potassium [Moles/Vol] 3.9 mmol/L 3.5-5.1 [facility] Protein [Mass/volume] in Ser um or PlasmaOrdered By: Jasper Martinez on 06-14-2023 Protein [Mass/Vol] 6.6 g/dL 6.4-8.9 [facility] Prothrombin Time INRon 06-14 INR Coag (PPP) [Relative time] 1.1 {INR} Normal [facility] Comment on above: Result Comment: INR [...] 3 - 4.5 Performed By: #### B EQUIPMENT MAINT TECH, CK, MG, CBC, HS TROP, PTT, PT, CMP #### [facility] [address] [place] [phone] [facility] PT Coag (PPP) [Time] 12.1 s Normal 9.0-12.9 [facility] Comment on above: Result Comment: A he matocrit value greater than 55% may lead to inaccurate results in coagulation testing. Patients having hematocrit values >55% require a special collection tube for coagulation studies. Please contact the laboratory at [phone] for redraw instructions. Performed By: #### B EQUIPMENT MAINT TECH, CK, MG, CBC, HS TROP, PTT, PT, CMP #### [facility] [address] [place] [phone] [facility] Prothrombin time (PT)Ordered By: Jasper Martinez on 06-14-2023 PT Coag (PPP) [Time] 12.1 s 9.0-12.9 [facility] Comment on above: A hematocrit value g reater than 55% may lead to inaccurate results in coagulation testing. Patients having hematocrit values >55% require a special collection tube for coagulation studies. Please contact the laboratory at [phone] for redraw instructions. RBC Auto (Bld) [#/Vol]Ordere d By: Jasper Martinez on 06-14-2023 RBC (Bld) [#/Vol] 4.74 10*6/uL 3.90-5.60 [facility] Serum or plasma albumin/glob ulin mass ratioOrdered By: Jasper Martinez on 06-14-2023 Albumin/Globulin [Mass ratio] 1.6 {ratio} [facility] Serum or plasma anion gap de terminationOrdered By: Jasper Martinez on 06-14-2023 Anion gap [Moles/Vol] 11.5 mmol/L 6.0-15.0 [facility] Sodium [Moles/volume] in Ser um or PlasmaOrdered By: Jasper Martinez on 06-14-2023 Sodium [Moles/Vol] 136 mmol/L 136-145 [facility] Troponin I High Sensitivityo n 06-14-2023 Troponin I High Sensitivity 26.8 pg/mL High 0.0-20.0 [facility] Comment on above: Result Comment: PERF ORMED BY: [place] [address] PATHOLOGIST METALLURGICAL INSPECTOR RAPHAEL RANGEL M.D. Performed By: #### C OVID19 FLU RSV, CEPHEID NEG #### [facility] [address] Troponin I.cardiac [Mass/vol ume] in Serum or Plasma by Detection limit <= 0.01 ng/Ordered By: Jasper Martinez on 06-14-2023 Troponin I.cardiac DL <= 0.01 ng/mL [Mass/Vol] 26.8 pg/mL 0.0-20.0 [facility] Urea nitrogen [Mass/volume] in Serum or PlasmaOrdered By: Jasper Martinez on 06-14-2023 Urea nitrogen [Mass/Vol] 12 mg/dL 7-25 [facility] WBC Auto (Bld) [#/Vol]Ordere d By: Jasper Martinez on 06-14-2023 WBC (Bld) [#/Vol] 8.1 10*3/uL 4.1-10.5 [facility] XR chest 2V*on 06-14-2023 XR chest 2V* [facility] [address] [place] [address] [place] [address] XRay Report Signed Patient: Demarcus Panchal MR#: [id number] 652 : 1955 Acct:[id number] Age/Sex: 68 / M ADM Date: 06/14/23 Loc: ER Room: Type: [facility] ER Attending Dr: Copies to: Jasper Martinez [...] Salvador Nguyễn M.D.06/14/2023 1:59 PM Dictation Location: [facility]- Transcribed By: [facility] 06/14/23 1359 Dictated By: Salvador Nguyễn DO 06/14/23 1354 Signed By: 06/14/23 1359 Normal [facility] Cardiac echo study Procedure on 03-20-2023 Ordered by an unspec ified provider. [facility] Alanine aminotransferase [En zymatic activity/volume] in Serum or PlasmaOrdered By: Sera Flower on 02-05-2023 ALT [Catalytic activity/Vol] 51 U/L 7-52 [facility] Albumin [Mass/volume] in Ser um or Plasma by Bromocresol green (BCG) dye binding methoOrdered By: Sera Flower on 02-05-2023 Albumin BCG dye [Mass/Vol] 4.4 g/dL 3.5-5.7 [facility] Alkaline phosphatase [Enzyma tic activity/volume] in Serum or PlasmaOrdered By: Sera Flower on 02-05-2023 ALP [Catalytic activity/Vol] 61 U/L 34-104 [facility] Aspartate aminotransferase [ Enzymatic activity/volume] in Serum or PlasmaOrdered By: Sera Flower on 02-05-2023 AST [Catalytic activity/Vol] 39 U/L 13-39 [facility] Bilirubin.total [Mass/volume ] in Serum or PlasmaOrdered By: Sera Flower on 02-05-2023 Bilirubin [Mass/Vol] 0.7 mg/dL 0.3-1.0 [facility] Calcium [Mass/volume] in Ser um or PlasmaOrdered By: Sera Flower on 02-05-2023 Calcium [Mass/Vol] 9.1 mg/dL 8.6-10.3 [facility] Carbon dioxide, total [Moles /volume] in Serum or PlasmaOrdered By: Sera Flower on 02-05-2023 CO2 [Moles/Vol] 28.0 mmol/L 21.0-31.0 [facility] Chloride [Moles/volume] in S taylor or PlasmaOrdered By: Sera Flower on 02-05-2023 Chloride [Moles/Vol] 103 mmol/L 98-107 [facility] Comprehensive Metabolic Pane maria esther 02-05-2023 Albumin [Mass/Vol] 4.4 g/dL Normal 3.5-5.7 [facility] Comment on above: Order Comment: PT IS FASTING Performed By: #### C MP #### [facility] [address] Albumin/Globulin [Mass ratio] 2.6 {ratio} Normal [facility] Comment on above: Order Comment: PT IS FASTING Performed By: #### C MP #### [facility] [address] ALP [Catalytic activity/Vol] 61 U/L Normal 34-104 [facility] Comment on above: Order Comment: PT IS FASTING Result Comment: PERF ORMED BY: [place] [address] PATHOLOGIST METALLURGICAL INSPECTOR RAPHAEL RANGEL M.D. Performed By: #### C MP #### [facility] [address] ALT [Catalytic activity/Vol] 51 U/L Normal 7-52 [facility] Comment on above: Order Comment: PT IS FASTING Performed By: #### C MP #### [facility] [address] Anion gap [Moles/Vol] 11.4 mmol/L Normal 6.0-15.0 [facility] Comment on above: Order Comment: PT IS FASTING Performed By: #### C MP #### [facility] [address] AST [Catalytic activity/Vol] 39 U/L Normal 13-39 [facility] Comment on above: Order Comment: PT IS FASTING Performed By: #### C MP #### [facility] [address] [place] [id number] [facility] Bilirubin [Mass/Vol] 0.7 mg/dL Normal 0.3-1.0 [facility] Comment on above: Order Comment: PT IS FASTING Performed By: #### C MP #### [facility] [address] Calcium [Mass/Vol] 9.1 mg/dL Normal 8.6-10.3 [facility] Comment on above: Order Comment: PT IS FASTING Performed By: #### C MP #### [facility] [address] Chloride [Moles/Vol] 103 mmol/L Normal 98-107 [facility] Comment on above: Order Comment: PT IS FASTING Performed By: #### C MP #### [address] CO2 [Moles/Vol] 28.0 mmol/L Normal 21.0-31.0 [facility] Comment on above: Order Comment: PT IS FASTING Performed By: #### C MP #### [facility] [address] Creatinine [Mass/Vol] 1.00 mg/dL Normal 0.70-1.30 [facility] Comment on above: Order Comment: PT IS FASTING Performed By: #### C MP #### [facility] [address] [place] [address] [place] GFR/1.73 sq M.predicted MDRD (S/P/Bld) [Vol rate/Area] mL/min/{1.73_m2} [facility] Comment on above: Order Comment: PT IS FASTING Performed By: #### C MP #### [facility] [address] [place] [address] [place] Globulin (S) [Mass/Vol] 1.7 g/dL [facility] Comment on above: Order Comment: PT IS FASTING Performed By: #### C MP #### [facility] [address] [place] [address] [place] Glucose [Mass/Vol] 93 mg/dL Normal 70-100 [facility] Comment on above: Order Comment: PT IS FASTING Result Comment: [place] Glucose Reference Range is dependent on time and content of last meal. Glucose of more than 200 mg/dL in a nonstressed, ambulatory subject supports the diagnosis of Diabetes Mellitus. ADA recommended reference range Performed By: #### C MP #### [facility] [address] Potassium [Moles/Vol] 4.4 mmol/L Normal 3.5-5.1 [facility] Comment on above: Order Comment: PT IS FASTING Performed By: #### C MP #### [facility] [address] [place] [address] [place] Protein [Mass/Vol] 6.1 g/dL Low 6.4-8.9 [facility] Comment on above: Order Comment: PT IS FASTING Performed By: #### C MP #### [facility] [address] [place] [address] [place] Sodium [Moles/Vol] 138 mmol/L Normal 136-145 [facility] Comment on above: Order Comment: PT IS FASTING Performed By: #### C MP #### [facility] [address] [place] [address] [place] Urea nitrogen [Mass/Vol] 15 mg/dL Normal 7-25 [facility] Comment on above: Order Comment: PT IS FASTING Performed By: #### C MP #### [facility] [address] [place] [id number] [place] Creatinine [Mass/volume] in Serum or PlasmaOrdered By: Sera Flower on 02-05-2023 Creatinine [Mass/Vol] 1.00 mg/dL 0.70-1.30 [facility] ECH echo transthoracicon [facility] echo transthoracic [facility] [address] [place] [address] Echocardiogram Signed Patient: Demarcus Panchal MR#: [id number] 652 : 1955 Acct:[id number] Age/Sex: 68 / M ADM Date: 02/05/23 Loc: Room: Type: [facility] Attending Dr: Rene Castro MD Ordering Provider: Rene Castro MD, [facility] Date of Service: 02/05/23/ ECH/[facility] echo transthoracic: HTN, ISCHEMIC CARDIOMYOPATHY Copies to: Rene Castro MD, [facility] BSA: 2.2 m2 BP: 141/82 mmHg HR: 53 Reason For Study: HTN, ISCHEMIC CARDIOMYOPATHY History: HTN, HLD, Former Smoker, [place], 5 Stents, Asthma, Emphysema, COVID Interpretation Summary [...] 02/05/23 1042 Signed By: Rene Castro MD, [facility] 02/05/23 1207 Normal [facility] Globulin Calc (S) [Mass/Vol] Ordered By: Sera Flower on 02-05-2023 Globulin (S) [Mass/Vol] 1.7 g/dL [facility] Glucose [Mass/volume] in Ser um or PlasmaOrdered By: Sera Flower on 02-05-2023 Glucose [Mass/Vol] 93 mg/dL 70-100 [facility] Comment on above: ADA recommended refe rence rangeRandom Glucose Reference Range is dependent on time and content of last meal. Glucose of more than 200 mg/dL in a nonstressed, ambulatory subject supports the diagnosis of Diabetes Mellitus. No Panel InformationOrdered By: Sera Flower on 02-05-2023 Estimated GFR (CKD-EPI) > 60.0 mL/Min [facility] Creatinine Clearance (Chem N/A [facility] No Panel Informationon 02-05 [employer] daniel 250 DO Work Phone: Potassium [Moles/volume] in Serum or PlasmaOrdered By: Sera Flower on 02-05-2023 Potassium [Moles/Vol] 4.4 mmol/L 3.5-5.1 [facility] Protein [Mass/volume] in Ser um or PlasmaOrdered By: Sera Flower on 02-05-2023 Protein [Mass/Vol] 6.1 g/dL 6.4-8.9 [facility] Serum or plasma albumin/glob ulin mass ratioOrdered By: Sera Flower on 02-05-2023 Albumin/Globulin [Mass ratio] 2.6 {ratio} [facility] Serum or plasma anion gap de terminationOrdered By: Sera Flower on 02-05-2023 Anion gap [Moles/Vol] 11.4 mmol/L 6.0-15.0 [facility] Sodium [Moles/volume] in Ser um or PlasmaOrdered By: Sera Flower on 02-05-2023 Sodium [Moles/Vol] 138 mmol/L 136-145 [facility] Urea nitrogen [Mass/volume] in Serum or PlasmaOrdered By: Sera Flower on 02-05-2023 Urea nitrogen [Mass/Vol] 15 mg/dL 7- [facility] CARDIAC STRESS/REST INJE CTIONon 01-03-2023 [facility] CARDIAC STRESS/REST INJECTION Patient Name: DEMARCUS PANCHAL STUDY: MYOCARDIAL PERFUSION STRESS TEST WITH LEXISCAN Performing facility: [facility], [address] [place] [address], [address], [address] Provider: Rene Castro MD, [facility] PCP: Dr. Hunter Flower Supervising provider: Danna Davis DO, [facility] INDICATION: CAD; HTN Hyperlipidemia Ischemic cardiomyopathy HISTORY: Gender: M; Age: 68 y/o ; Height: 172.72 cm; Weight: 724.4001401 kg. CAD; High Cholesterol; HTN; Quit smoking 38 years ago. Cardiac catheterization on 2009. PTCA on 2009. COMPARISON: Previous nuclear testing completed at [facility]. ACCESSION NUMBER(S): [id number]; [id number]; [id number] ORDERING CLINICIAN: RENE CASTRO TECHNIQUE: TWO DAY [...] Electronically signed by: RENE CASTRO MD Normal [facility] No Panel Informationon 01-03 Normal -[facility] daniel 250 DO Work Phone: Office Visit [...] Weight Tips; Status:Complete - Retrospective Authorization; Done: [id number] Some eating tips that can help you lose weight.; Status:Complete - Retrospective Authorization; Done: [id number] Essential hypertension, Ischemic cardiomyopathy Renew: Carvedilol 6.25 MG Oral Tablet (Coreg); TAKE 1 TABLET TWICE DAILY WITH MEALS SocHx: Former smoker Stop: Losartan Potassium 25 MG Oral Tablet Tobacco Use Screening; Status:Complete; Done: [id number] Unlinked Stop: hydroCHLOROthiazide 25 MG Oral Tablet [...] emphasis on low-calorie diet Rene Castro MD, [facility] Surgical History Problems History of Coronary [...] No a (more content not included)... Normal [facility] Tobacco Screening.on Adult depression screening assessment No [facility] 250 DO Work Phone: Fall risk assessment a) No falls within the last year [facility] 250 DO Work Phone: Tobacco use status [facility] b) No [facility] 250 DO Work Phone: MRI Soft Tissue [...] by Ethan Walsh on 07/16/2022 1246 Normal [facility] Bacteriology Technician MRI Brain w/o + w/on 023 MRI [...] by Sean Trejo on 07/01/2022 0911 Normal [facility] Bacteriology Technician Shaquille 06-21-2022 KALENN Telephone (INTMLN) -- KVNGDEMARCUS ([id number]) 1955 Date Time Provider Department 06/21/22 DEANDRA BENDER During your visit today, we recorded the following information about you: Delores Mccollum 06/21/2022 12:54 PM Signed [facility] called today. : 1955 Allergies: Codeine, Codeine-Guaifenesin, and Guaifenesin (home) [phone] (cell) Reason for call: Sasha F:[phone] Asking for the MRI orders and office notes to be faxed over to [facility]. Patient will be having them done there. Patient last appointment: Visit date not found The patients preferred pharmacy has been captured for this encounter? not asked Delores Mccollum Orquidea Ryan [facility] 06/21/2022 2:03 PM Signed Notes and MRI [...] Status:Closed by ORQUIDEA SIBLEY on 06/21/22 Normal [facility] XR Ribs w/ PA Chest [...] Ethan Walsh on 03/13/2022 1254 Normal [facility] XR Chest 2 Views*on 01-18-20 22 XR Chest 2 Views* COMPARISON: none TECHNIQUE: Upright PA and lateral views of the chest were obtained. FINDINGS: Heart is normal in size. Lungs are clear and well expanded. No pleural effusion or pneumothorax. The bony thorax is unremarkable. IMPRESSION: NO ACUTE CARDIOPULMONARY ABNORMALITY. Report reported and signed by AMALIA LOGAN on 01/17/2022 1243 Normal [facility] Specialist Tobacco Screening.on 022 Adult depression screening assessment No [facility] daniel 250 DO Work Phone: Fall risk assessment a) No falls within the last year [facility] daniel 250 DO Work Phone: Tobacco use status [facility] b) No [facility] daniel 250 DO Work Phone: CT [...] by AMALIA LOGAN on 08/04/2021 1346 Normal [facility] Specialist Complete Blood Count with Au to Diffon 07-29-2021 Basophils (Bld) [#/Vol] 0.05 10*3/uL Normal 0.00-0.20 [facility] Specialist Comment on above: Performed By: #### C MP, CBCAD #### [facility] [address] [place], [place] [id number] Basophils/100 WBC (Bld) 0.8 % Normal [facility] Specialist Comment on above: Performed By: #### C MP, CBCAD #### [facility] [address] [place], [place] [id number] Eosinophils (Bld) [#/Vol] 0.46 10*3/uL Normal 0.02-0.50 [facility] Specialist Comment on above: Performed By: #### C JOES ANTONIO, CBCAD #### [facility] [address] [place], [place] [id number] Eosinophils/100 WBC (Bld) 7.7 % Normal [facility] Specialist Comment on above: Performed By: #### C JOSE ANTONIO, CBCAD #### [facility] [address] [place], [place] [id number] Erythrocyte distribution width (RBC) [Ratio] 13.3 % Normal 11.0-15.0 [facility] Specialist Comment on above: Performed By: #### C JOSE ANTONIO, CBCAD #### [facility] [address] [place], [place] [id number] Hematocrit (Bld) [Volume fraction] 42.2 % Normal 38.5-50.0 [facility] Specialist Comment on above: Performed By: #### C JOSE ANTONIO, CBCAD #### [facility] [address] [place], [place] [id number] Hemoglobin (Bld) [Mass/Vol] 14.5 g/dL Normal 13.0-17.1 [facility] Specialist Comment on above: Performed By: #### C MP, CBCAD #### [facility] [address] [place], [place] [id number] Lymphocytes (Bld) [#/Vol] 1.6 10*3/uL Normal 0.9-3.9 [facility] Specialist Comment on above: Performed By: #### C JOSE ANTONIO, CBCAD #### [facility] [address] [place], [place] [id number] Lymphocytes/100 WBC (Bld) 26.1 % Normal [facility] Comment on above: Performed By: #### C MP, CBCAD #### [facility] [address] [place], [place] [id number] MCH (RBC) [Entitic mass] 29.7 pg Normal 27.0-33.0 [facility] Comment on above: Performed By: #### C MP, CBCAD #### [facility] [address] [place], [place] [id number] MCHC (RBC) [Mass/Vol] 34.4 g/dL Normal 32.0-36.0 [facility] Comment on above: Performed By: #### C MP, CBCAD #### [facility] [address] [place], [place] [id number] MCV (RBC) [Entitic vol] 86 fL Normal 80-100 [facility] Comment on above: Performed By: #### C MP, CBCAD #### [facility] [address] [place], [place] [id number] Monocytes (Bld) [#/Vol] 0.9 10*3/uL Normal 0.2-0.9 [facility] Comment on above: Performed By: #### C MP, CBCAD #### [facility] [address] [place], [place] [id number] Monocytes/100 WBC (Bld) 14.6 % Normal [facility] Comment on above: Performed By: #### C MP, CBCAD #### [facility] [address] [place], [place] [id number] Neutrophils (Bld) [#/Vol] 3.0 10*3/uL Normal 1.5-7.8 [facility] Comment on above: Performed By: #### C MP, CBCAD #### [facility] [address] [place], [place] [id number] Neutrophils/100 WBC (Bld) 50.5 % Normal [facility] Specialist Comment on above: Performed By: #### C MP, CBCAD #### [facility] [address] [place], [place] [id number] Platelet mean volume (Bld) [Entitic vol] 10.90 fL Normal 7.50-12.50 [facility] Specialist Comment on above: Performed By: #### C MP, CBCAD #### [facility] [address] [place], [place] [id number] Platelets (Bld) [#/Vol] 166 10*3/uL Normal 140-400 [facility] Specialist Comment on above: Performed By: #### C MP, CBCAD #### [facility] [address] [place], [place] [id number] RBC (Bld) [#/Vol] 4.89 10*6/uL Normal 4.20-5.80 [facility] Specialist Comment on above: Performed By: #### C JOSE ANTONIO, CBCAD #### [facility] [address] [place], [place] [id number] RDW-SD 41.2 fL Normal 37.0-50.0 [facility] Specialist Comment on above: Performed By: #### C JOSE ANTONIO, CBCAD #### [facility] [address] [place], [place] [id number] WBC (Bld) [#/Vol] 5.9 10*3/uL Normal 3.8-11.0 [facility] Specialist Comment on above: Performed By: #### C JOSE ANTONIO, CBCAD #### [facility] [address] [place], [place] [id number] Comprehensive Metabolic Pane [facility] 07-29-2021 Albumin [Mass/Vol] 4.6 g/dL Normal 3.6-5.1 [facility] Specialist Comment on above: Performed By: #### C MP, CBCAD #### [facility] [address] [place], [place] [id number] Albumin/Globulin [Mass ratio] 2.7 {ratio} High 1.0-2.5 [facility] Specialist Comment on above: Performed By: #### C MP, CBCAD #### [facility] [address] [place], [place] [id number] ALP [Catalytic activity/Vol] 74 U/L Normal 40-129 [facility] Specialist Comment on above: Performed By: #### C JOSE ANTONIO, CBCAD #### [facility] [address] [place], [place] [id number] ALT [Catalytic activity/Vol] 55 U/L High 9-46 [facility] Comment on above: Result Comment: 04/27 Female reference range changed. Performed By: #### C MP, CBCAD #### [facility] [address] [place], [place] [id number] Anion gap [Moles/Vol] 16 mmol/L Normal 12-20 [facility] Specialist Comment on above: Result Comment: Effe ctive 06/02/2019 reference range changed. Performed By: #### C MP, CBCAD #### [facility] [address] [place], [place] [id number] AST [Catalytic activity/Vol] 39 U/L Normal 10-40 [facility] Comment on above: Performed By: #### C MP, CBCAD #### [facility] [address] [place], [place] [id number] BUN/CREA 13 Ratio Normal 6-22 [facility] Comment on above: Performed By: #### C MP, CBCAD #### [facility] [address] [place], [place] [id number] Calcium [Mass/Vol] 9.0 mg/dL Normal 8.6-10.2 [facility] Comment on above: Performed By: #### C MP, CBCAD #### [facility] [address] [place], [place] [id number] Chloride [Moles/Vol] 107 mmol/L Normal 98-107 [facility] Comment on above: Performed By: #### C MP, CBCAD #### [facility] [address] [place], [place] [id number] CO2 [Moles/Vol] 20 mmol/L Normal 20-31 [facility] Comment on above: Performed By: #### C MP, CBCAD #### [facility] [address] [place], [place] [id number] Creatinine [Mass/Vol] 1.0 mg/dL Normal 0.7-1.4 [facility] Comment on above: Performed By: #### C MP, CBCAD #### [facility] [address] [place], [place] [id number] eGFRAA 94 mL/min/1.73m2 Normal >60 [facility] Specialist Comment on above: Performed By: #### C MP, CBCAD #### [facility] [address] [place], [place] [id number] eGFRNAA 78 mL/min/1.73m2 Normal >60 [facility] Specialist Comment on above: Performed By: #### C MP, CBCAD #### [facility] [address] [place], [place] [id number] Globulin (S) [Mass/Vol] 1.7 g/dL Low 1.9-3.7 [facility] Specialist Comment on above: Performed By: #### C MP, CBCAD #### [facility] [address] [place], [place] [id number] Glucose [Mass/Vol] 121 mg/dL High 65-99 [facility] Bacteriology Technician Comment on above: Result Comment: For FASTING Glucose --- ADA reference ranges: Normal 65-99 mg/dl Prediabetes 100-125 Diabetes >/= 126 Performed By: #### C MP, CBCAD #### [facility] [address] [place], [place] [id number] Potassium [Moles/Vol] 4.2 mmol/L Normal 3.5-5.5 [facility] Comment on above: Performed By: #### C MP, CBCAD #### [facility] [address] [place], [place] [id number] Protein [Mass/Vol] 6.3 g/dL Normal 6.1-8.1 [facility] Bacteriology Technician Comment on above: Performed By: #### C MP, CBCAD #### [facility] [address] [place], [place] [id number] Sodium [Moles/Vol] 139 mmol/L Normal 135-146 [facility] Bacteriology Technician Comment on above: Performed By: #### C MP, CBCAD #### [facility] [address] [place], [place] [id number] TBIL <0.3 Normal [facility] Specialist Comment on above: Performed By: #### C MP, CBCAD #### [facility] [address] [place], [place] [id number] Urea nitrogen [Mass/Vol] 12 mg/dL Normal 7-25 [facility] Bacteriology Technician Comment on above: Performed By: #### C MP, CBCAD #### [facility] [address] [place], [place] [id number] Microalbumin (with Creat)on 07-29-2021 mALB <1.2 Low [facility] Bacteriology Technician Comment on above: Result Comment: Unab le to calculate mALB/Crea ratio, mALB is <1.2 mg/dL mALB reference range not established. Performed By: #### m ALBC #### [facility] [address] [place], [place] [id number] UCREA 85 mg/dL Normal 39-259 [facility] Bacteriology Technician Comment on above: Performed By: #### m ALBC #### [facility] [address] [place], [place] [id number] Prostatic Specific Antigen, Totalon 07-29-2021 TPSA 2.330 ng/mL Normal <4.000 [facility] Bacteriology Technician Comment on above: Result Comment: PSA Test Method: ECLIA/Brandi e 601 Performed By: #### P SA #### [facility] [address] [place], [place] [id number] Q - URINALYSIS,COMPLETEon Appearance (U) CLEAR Normal CLEAR [facility] Bacteriology Technician Comment on above: Order Comment: [facility] Testing performed at: [employer] [facility], [address] , [address] [place] [address], [id number], Newborn Hearing Screener: Rafi Agustin MD [facility] Collection Date/Time: [facility] Results Received Date/Time: [facility] Reported Date/Time: Performed By: #### 3 4F #### [facility] Default [address] [place] [address] BACTERIA NONE SEEN Normal NONE SEEN [facility] Bacteriology Technician Comment on above: Order Comment: [facility] Testing performed at: [employer] [facility], [address], [address] [place] [address], [id number], Newborn Hearing Screener: Rafi Agustin MD [facility] Collection Date/Time: [facility] Results Received Date/Time: [facility] Reported Date/Time: Performed By: #### 3 4F #### [facility] Default [address] [place] [address] Bilirubin Ql (U) Negative Normal NEGATIVE [facility] Bacteriology Technician Comment on above: Order Comment: [facility] Testing performed at: [facility], [employer] [facility], [address] , [address] [place] [address], [address] [place] [address], Newborn Hearing Screener: Rafi Agustin MD [facility] Collection Date/Time: [facility] Results Received Date/Time: [facility] Reported Date/Time: Performed By: #### 3 4F #### [facility] Default [address] [place] [address] Color (U) YELLOW Normal YELLOW [facility] Bacteriology Technician Comment on above: Order Comment: [facility] Testing performed at: [employer] [facility], [address] , [address] [place] [address], [address] [place] [address], Newborn Hearing Screener: Rafi Agustin MD [facility] Collection Date/Time: [facility] Results Received Date/Time: [facility] Reported Date/Time: Performed By: #### 3 4F #### [facility] Default [address] [place] [address] Glucose Ql (U) Negative Normal NEGATIVE [facility] Bacteriology Technician Comment on above: Order Comment: [facility] Testing performed at: [facility] [employer], [employer] [facility], [address] , [address] [place] [address], [address] [place] [address], Newborn Hearing Screener: Rafi Agustin MD [facility] Collection Date/Time: [facility] Results Received Date/Time: [facility] Reported Date/Time: Performed By: #### 3 4F #### [facility] Default [address] [place] [address] HYALINE CAST NONE SEEN Normal NONE SEEN [facility] Bacteriology Technician Comment on above: Order Comment: [facility] Testing performed at: [facility] [employer], [employer] [facility], [address] , [address] [place] [address], [address] [place] [address], Newborn Hearing Screener: Rafi Agustin MD [facility] Collection Date/Time: [facility] Results Received Date/Time: [facility] Reported Date/Time: Performed By: #### 3 4F #### [facility] Default [address] [place] [address] Ketones Ql (U) Negative Normal NEGATIVE [facility] Specialist Comment on above: Order Comment: [facility] Testing performed at: [facility] [employer], [employer] [facility], [address] [facility], [address] [place] [address], [address] [place] [address], Newborn Hearing Screener: Rafi Agustin MD [facility] Collection Date/Time: [facility] Results Received Date/Time: [facility] Reported Date/Time: Performed By: #### 3 4F #### [facility] Default [address] [place] [address] Leukocyte esterase Test strip Ql (U) Negative Normal NEGATIVE [facility] Bacteriology Technician Comment on above: Order Comment: [facility] Testing performed at: [facility], [employer] [facility], [address] [facility], [address] [place] [address], [address] [place] [address], Newborn Hearing Screener: Rafi Agustin MD [facility] Collection Date/Time: [facility] Results Received Date/Time: [facility] Reported Date/Time: Performed By: #### 3 4F #### [facility] Default [address] [place] [address] Nitrite Ql (U) Negative Normal NEGATIVE [facility] Bacteriology Technician Comment on above: Order Comment: [facility] Testing performed at: [facility] [employer], [employer] [facility], [address] [facility], [address] [place] [address], [address] [place] [address], Newborn Hearing Screener: Rafi Agustin MD [facility] Collection Date/Time: [facility] Results Received Date/Time: [facility] Reported Date/Time: Performed By: #### 3 4F #### [facility] Default [address] [place] [address] OCCULT BLOOD Negative Normal NEGATIVE [facility] Bacteriology Technician Comment on above: Order Comment: [facility] Testing performed at: Q, [employer] [facility], [address] [facility], [address] [place] [address], [address] [place] [address], Newborn Hearing Screener: Rafi Agustin MD [facility] Collection Date/Time: [facility] Results Received Date/Time: [facility] Reported Date/Time: Performed By: #### 3 4F #### [facility] [address] [place] [address] pH (U) 6.5 [pH] Normal 5.0-8.0 [facility] Bacteriology Technician Comment on above: Order Comment: [facility] Testing performed at: [facility], [employer], [address] [facility], [address] [place] [address], [address] [place] [address], Newborn Hearing Screener: Rafi Agustin MD [facility] Collection Date/Time: [facility] Results Received Date/Time: [facility] Reported Date/Time: Performed By: #### 3 4F #### [facility] Default [address] [place] [address] Protein Ql (U) Negative Normal NEGATIVE [facility] Bacteriology Technician Comment on above: Order Comment: [facility] Testing performed at: Q, [employer] [facility], [address] [facility], [address] [place] [address], [address] [place] [address], Newborn Hearing Screener: Rafi Agustin MD [facility] Collection Date/Time: [facility] Results Received Date/Time: [facility] Reported Date/Time: Performed By: #### 3 4F #### [facility] Default [address] [place] [address] RBC NONE SEEN Normal < OR = 2 [facility] Bacteriology Technician Comment on above: Order Comment: [facility] Testing performed at: Q, [employer] [facility], [address] [facility], [address] [place] [address], [address] [place] [address], Newborn Hearing Screener: Rafi Agustin MD [facility] Collection Date/Time: [facility] Results Received Date/Time: [facility] Reported Date/Time: Performed By: #### 3 4F #### [facility] Default [address] [place] [address] Specific gravity (U) [Rel density] 1.012 Normal 1.001-1.035 [facility] Specialist Comment on above: Order Comment: [facility] Testing performed at: [facility], [employer] [facility], [address] [facility], [address] [place] [address], [address] [place] [address], Newborn Hearing Screener: Rafi Agustin MD [facility] Collection Date/Time: [facility] Results Received Date/Time: [facility] Reported Date/Time: Performed By: #### 3 4F #### [facility] Default [address] [place] [address] SQUAMOUS EPITHELIAL CELLS NONE SEEN Normal < OR = 5 [facility] Specialist Comment on above: Order Comment: [facility] Testing performed at: [facility] [employer], [employer] [facility], [address] [facility], [address] [place] [address], [address] [place] [address], Newborn Hearing Screener: Rafi Agustin MD [facility] Collection Date/Time: [facility] Results Received Date/Time: [facility] Reported Date/Time: Performed By: #### 3 4F #### [facility] Default [address] [place] [address] WBC NONE SEEN Normal < OR = 5 [facility] Specialist Comment on above: Order Comment: [facility] Testing performed at: [facility], [employer] [facility], [address] [facility], [address] [place] [address], [address] [place] [address], Newborn Hearing Screener: Rafi Agustin MD [facility] Collection Date/Time: [facility] Results Received Date/Time: [facility] Reported Date/Time: Performed By: #### 3 4F #### [facility] Default [address] [place] [address] No Panel Information [facility] Vital Signs Date Time Vital Sign Value Performing Clinician Facility 10-18-2023 09:25-0400 Body height 172.7 cm Rene Castro MD Work Phone: [facility] 10-18-2023 09:25-0400 Body mass index (BMI) [Ratio] 36.31 kg/m2 Rene Castro MD Work Phone: [facility] 10-18-2023 09:25-0400 Body weight 108.32 kg Rene Castro MD Work Phone: [facility] 10-18-2023 09:25-0400 Diastolic blood pressure 76 mm[Hg] Rene Castro MD Work Phone: [facility] 10-18-2023 09:25-0400 Heart rate 68 /min Rene Castro MD Work Phone: [facility] 10-18-2023 09:25-0400 Systolic blood pressure 120 mm[Hg] Rene Castro MD Work Phone: [facility] 06-30-2023 10:23-0500 Body mass index (BMI) [...] 97.7 [degF] MD Sera Flower Work Phone: [facility] 06-14-2023 14:25-0500 Diastolic blood pressure 74 mm[Hg] MD Sera Flower Work Phone: [facility] 06-14-2023 14:25-0500 Heart rate 78 /min MD Sera Flower Work Phone: [facility] 06-14-2023 14:25-0500 Respiratory rate 20 /min MD Sera Flower Work Phone: [facility] 06-14-2023 14:25-0500 SaO2% (BldA) [Mass fraction] 95 % MD eSra Flower Work Phone: [facility] 06-14-2023 14:25-0500 Systolic blood pressure 155 mm[Hg] MD Sera Flower Work Phone: [facility] 06-14-2023 11:48-0500 Body height 172.72 cm MD Sera Flower Work Phone: [facility] 06-14-2023 11:48-0500 Body weight 108.9 kg MD Sera Flower Work Phone: [facility] 03-23-2023 09:34-0400 Body height 172.7 cm Rene Castro MD Work Phone: [facility] 03-23-2023 09:34-0400 Body mass index (BMI) [Ratio] 35.12 kg/m2 Rene Castro MD Work Phone: [facility] 03-23-2023 09:34-0400 Body weight 104.78 kg Rene Castro MD Work Phone: [facility] 03-23-2023 09:34-0400 Diastolic blood pressure 72 mm[Hg] Rene Castro MD Work Phone: [facility] 03-23-2023 09:34-0400 Heart rate 60 /min Rene Castro MD Work Phone: [facility] 03-23-2023 09:34-0400 Systolic blood pressure 128 mm[Hg] Rene Castro MD Work Phone: [facility] 09-07-2022 11:31-0400 Body height 172.72 cm Sera Flower Work Phone: TZ-Tkuqwdlbud-Fmksd daniel 250 DO Work Phone: 09-07-2022 11:31-0400 Body mass index (BMI) [Ratio] 36.8 kg/m2 Sera Flower Work Phone: GM-Pphsmpjkxj-Pyrsr daniel 250 DO Work Phone: 09-07-2022 11:31-0400 Body surface area Derived from formula 2.22 m2 Sera Flower Work Phone: BL-Awqjdkjjvb-Qfbot daniel 250 DO Work Phone: 09-07-2022 11:31-0400 Body weight 109.77 kg Sera Flower Work Phone: IM-Unsqihwkmn-Efrid daniel 250 DO Work Phone: 09-07-2022 11:31-0400 Diastolic blood pressure 68 mm[Hg] Sera Flower Work Phone: EX-Eqzsghfoxo-Ztozt daniel 250 DO Work Phone: 09-07-2022 11:31-0400 Heart rate 76 /min Sera Flower Work Phone: AS-Mikawwubhg-Umoqv daniel 250 DO Work Phone: 09-07-2022 11:31-0400 Systolic blood pressure 124 mm[Hg] Sera Flower Work Phone: TB-Qunzxetkyr-Pibhe daniel 250 DO Work Phone: 09-05-2021 14:04-0400 Body height 172.72 cm Sera Flower Work Phone: [facility] 250 DO Work Phone: 09-05-2021 14:04-0400 Body mass index (BMI) [Ratio] 36.49 kg/m2 Sera Flower Work Phone: [facility] 250 DO Work Phone: 09-05-2021 14:04-0400 Body surface area Derived from formula 2.21 m2 Sera Flower Work Phone: [facility] 250 DO Work Phone: 09-05-2021 14:04-0400 Body weight 108.86 kg Sera Flower Work Phone: [facility] 250 DO Work Phone: 09-05-2021 14:04-0400 Diastolic blood pressure 82 mm[Hg] Sera Flower Work Phone: [facility] 250 DO Work Phone: 09-05-2021 14:04-0400 Heart rate 70 /min Sera Flower Work Phone: [facility] 250 DO Work Phone: 09-05-2021 14:04-0400 Systolic blood pressure 132 mm[Hg] Sera Flower Work Phone: [facility] 250 DO Work Phone: Encounters Encounter Date Encounter Type Care Provider Facility Start: 2024 End: 2024 ambulatory BENJY ALAS Not Available Start: 10-18-2023 End: 10-18-2023 Office outpatient visit 25 minutes Rene Castro MD Work Phone: [facility] Comment on above: Coronary artery dise ase involving [place] coronary artery of [place] heart without angina pectoris (Primary Dx); Essential hypertension; Mixed hyperlipidemia; Ischemic cardiomyopathy; Status post coronary artery stent placement; Class 2 obesity with body mass index (BMI) of 35.0 to 35.9 in adult, unspecified obesity type, unspecified whether serious comorbidity present; Former smoker Start: 10-18-2023 End: 10-18-2023 ambulatory RENE [facility] Start: 09-20-2023 End: 09-20-2023 ambulatory SERA FLOWER Not Available Start: 07-30-2023 End: 07-30-2023 ambulatory SERA FLOWER Not Available Start: 06-30-2023 End: 06-30-2023 ambulatory HOSEA SIFUENTES Not Available Start: 06-30-2023 End: 06-30-2023 Office outpatient visit 25 minutes Hosea Sifuentes DO Work Phone: [facility] Comment on above: Acute exacerbation o f chronic obstructive pulmonary disease (CMS/HCC) (Primary Dx) Start: 06-27-2023 End: 06-27-2023 ambulatory SERA FLOWER Not Available Start: 06-14-2023 End: 06-14-2023 Emergency department patient visit Jasper Martinez Facility:[facility] Start: 06-14-2023 End: 06-14-2023 Emergency department patient visit MD Sera Flower Work Phone: [facility] Work Phone: Start: 06-14-2023 End: 06-14-2023 ambulatory RENZO WEAVER Not Available Start: 05-19-2023 End: 05-19-2023 ambulatory BRITTANY FIGUEROA Not Available Start: 03-23-2023 End: 03-23-2023 Office outpatient visit 25 minutes Rene Castro MD Work Phone: [facility] Comment on above: Coronary artery dise ase involving [place] coronary artery of [place] heart without angina pectoris; Essential hypertension; Mixed hyperlipidemia; Ischemic cardiomyopathy; Status post coronary artery stent placement; Class 2 obesity with body mass index (BMI) of 35.0 to 35.9 in adult, unspecified obesity type, unspecified whether serious comorbidity present Start: 03-23-2023 End: 03-23-2023 ambulatory [facility] Ambulatory Start: 02-06-2023 Other Sera Flower Work Phone: [facility] 250 DO Work Phone: Start: 02-05-2023 End: 02-05-2023 ambulatory [facility] Facility:[facility] Start: 02-05-2023 End: 02-05-2023 ambulatory MD Sera Flower Work Phone: [facility] Work Phone: Start: 02-05-2023 End: 02-05-2023 Patient encounter procedure MD Sera Flower Work Phone: [facility]ro[facility] Work Phone: Start: 02-05-[address] Sera Flower Facility:[id number] Start: 01-30-2023 AUDIT Sera Flower Work Phone: [facility] 600 DO Work Phone: Start: 01-15-2023 Other Sera Flower Work Phone: [facility] 250 DO Work Phone: Start: 01-12-2023 Chart Update Sera Flower Work Phone: [facility] 250 DO Work Phone: Start: 01-04-[address] Sera Flower Facility:[id number] Start: 01-03-[address] Sera Flower Facility:[id number] Start: 11-14-2022 End: 11-14-2022 ambulatory DEANDRA BENDER Facility:[facility] Start: 11-14-2022 End: 11-14-2022 Patient encounter procedure Deandra Bender MD Work Phone: Ophthalmology Comment on above: Clonic hemifacial sp asm, right (Primary Dx) Start: 09-07-2022 Office outpatient vi sit 25 minutes Sera Flower Work Phone: [facility] 250 DO Work Phone: Start: 09-07-2022 ambulatory Rene Castro Facility : Start: 08-08-2022 End: 08-08-2022 ambulatory DEANDRA BENDER Facility:[facility] Start: 08-08-2022 End: 08-08-2022 Patient encounter procedure Deandra Bender MD Work Phone: Ophthalmology Comment on above: Clonic hemifacial sp asm, right (Primary Dx) Start: 06-21-2022 Telephone encounter Deandra Bender MD Work Phone: [facility] [place] Comment on above: Orders Start: 06-21-2022 End: 06-21-2022 ambulatory DEANDRA BENDER Facility:[facility] Start: 06-21-2022 End: 06-21-2022 Patient encounter procedure Deandra Bender MD Work Phone: Ophthalmology Comment on above: Clonic hemifacial sp asm, right (Primary Dx); Paralytic strabismus; Jada's syndrome Start: 05-01-2022 End: 05-01-2022 ambulatory MAU RANDLE Facility:[facility] Start: 05-01-2022 End: 05-01-2022 Patient encounter procedure Mau Randle OD Work Phone: Ophthalmology Comment on above: Eyelid myokymia (Velma maren Dx); Dry eye syndrome of both eyes; Hyperopia of both eyes with astigmatism and presbyopia Start: 09-05-2021 Office outpatient vi sit 25 minutes Sera Flower Work Phone: [facility] 250 DO Work Phone: Procedures Date [...] WALKER CASTRO Start: 03-23-2023 Lipid panel WALKER [facility] Start: 03-20-2023 Echocardiography WALKER [facility] Start: 03-20-2023 Echocardiography Generic Provider Scanning Start: 02-13-2023 History of placement of stent for coronary artery disease Status post coronary artery stent placement Rene Castro MD Work Phone: Start: 11-14-2022 [facility] innervated facial nrv unil Deandra Bender MD Work Phone: Start: 08-08-2022 [facility] facial nrv unil Evelia Huffman 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 Work Phone: Start: 07-28-2019 Colonoscopy Hosea Sifuentes [...] Hospital Start: 09-13-2028 Lipid panel Lipid Panel [facility] Start: 08-11-2027 DTaP/Tdap/Td Vaccines (2 - Td or Tdap) DTaP/Tdap/Td Vaccines (2 - Td or Tdap) [facility] Start: 05-15-2024 End: 05-15-2024 Patient encounter procedure 05/15/2024 9:10 AM EST Office Visit [facility] [address] [facility] [address] [place] [address] Rene Castro MD [address] [facility] [place] [address] [facility] Start: 03-20-2024 Echocardiography Echocardiogram [facility] Start: 01-27-2024 Influenza vaccination Influenza Vaccine (Season Ended) [facility] Start: 10-18-2023 End: 10-18-2023 Patient encounter procedure 10/18/2023 9:30 AM EDT Office Visit [place] [id number] [facility] [address] [place] [address] Rene Castro MD [address] [facility] [address] [place] [address] [facility] Start: 09-20-2023 End: 09-20-2023 Patient encounter procedure 09/20/2023 1:00 PM EDT Office Visit [facility] [address] [place] [id number] Sera Flower MD [address] [place] [address] [facility] Start: 03-23-2023 End: 03-23-2024 Alanine aminotransferase [Enzymatic activity/volume] in Serum or Plasma by With P-5'-P Alanine Aminotransferase Lab Routine Coronary artery disease involving [place] coronary artery of [place] heart without angina pectoris Essential hypertension Mixed hyperlipidemia Ischemic cardiomyopathy Status post coronary artery stent placement Class 2 obesity with body mass index (BMI) of 35.0 to 35.9 in adult, unspecified obesity type, unspecified whether serious comorbidity present Expected: 03/23/2023 (Approximate), Expires: 03/23/2024 [facility] Work Phone: Comment on above: Expected: 03/23/2023 (Approximate), Expi res: 03/23/2024 Start: 03-23-2023 End: 03-23-2024 Aspartate aminotransferase [Enzymatic activity/volume] in Serum or Plasma by With P-5'-P Aspartate Aminotransferase Lab Routine Coronary artery disease involving [place] coronary artery of [place] heart without angina pectoris Essential hypertension Mixed hyperlipidemia Ischemic cardiomyopathy Status post coronary artery stent placement Class 2 obesity with body mass index (BMI) of 35.0 to 35.9 in adult, unspecified obesity type, unspecified whether serious comorbidity present Expected: 03/23/2023 (Approximate), Expires: 03/23/2024 [facility] Work Phone: Comment on above: Expected: 03/23/2023 (Approximate), Expi res: 03/23/2024 Start: 03-23-2023 End: 03-23-2024 Basic metabolic 2000 panel - Serum or Plasma Basic Metabolic Panel Lab Routine Coronary artery disease involving [place] coronary artery of [place] heart without angina pectoris Essential hypertension Mixed hyperlipidemia Ischemic cardiomyopathy Status post coronary artery stent placement Class 2 obesity with body mass index (BMI) of 35.0 to 35.9 in adult, unspecified obesity type, unspecified whether serious comorbidity present Expected: 03/23/2023 (Approximate), Expires: 03/23/2024 [facility] Work Phone: Comment on above: Expected: 03/23/2023 (Approximate), Expi res: 03/23/2024 Start: 03-23-2023 End: 03-23-2024 CBC panel - Blood by Automated count CBC Lab Routine Coronary artery disease involving [place] coronary artery of [place] heart without angina pectoris Essential hypertension Mixed hyperlipidemia Ischemic cardiomyopathy Status post coronary artery stent placement Class 2 obesity with body mass index (BMI) of 35.0 to 35.9 in adult, unspecified obesity type, unspecified whether serious comorbidity present Expected: 03/23/2023 (Approximate), Expires: 03/23/2024 [facility] Service Area Work Phone: Comment on above: Expected: 03/23/2023 (Approximate), Expi res: 03/23/2024 Start: 03-23-2023 End: 03-23-2024 Lipid 1996 panel - Serum or Plasma Lipid Panel Lab Routine Coronary artery disease involving [place] coronary artery of [place] heart without angina pectoris Essential hypertension Mixed hyperlipidemia Ischemic cardiomyopathy Status post coronary artery stent placement Class 2 obesity with body mass index (BMI) of 35.0 to 35.9 in adult, unspecified obesity type, unspecified whether serious comorbidity present Expected: 03/23/2023 (Approximate), Expires: 03/23/2024 [facility] Work Phone: Comment on above: Expected: 03/23/2023 (Approximate), Expi res: 03/23/2024 Start: 03-15-2023 FUV, Provider: Rene Castro, Status: Pen, Time: 9:20 AM FUV, Provider: Rene Castro, Status: Pen, Time: 9:20 AM [facility] 250 DO Work Phone: Start: 01-26-2023 COVID-19 Vaccine ( season) COVID-19 Vaccine ( season) [facility] Start: 01-26-2023 Influenza vaccination [facility] Start: 09-07-2022 FUV, Provider: Rene Castro, Status: Pen, Time: 8:30 AM FUV, Provider: Rene Castro, Status: Pen, Time: 8:[address] [facility] 250 DO Work Phone: Start: 05-28-2022 ADVANCE DIRECTIVE DISCUSSION ADVANCE DIRECTIVE DISCUSSION [facility] Start: 05-28-2022 DEPRESSION ASSESSMENT DEPRESSION ASSESSMENT [facility] Start: 01-26-2022 Influenza vaccination INFLUENZA (#1) [facility] Start: 05-28-2021 ADVANCE DIRECTIVE DISCUSSION ADVANCE DIRECTIVE DISCUSSION [facility] Start: 05-28-2021 DEPRESSION ASSESSMENT DEPRESSION ASSESSMENT [facility] Start: 2018 Abdominal aortic aneurysm screening Abdominal Aortic Aneurysm (AAA) Screening [facility] Start: 2018 PNEUMOCOCCAL: 65+ (1 - PCV) PNEUMOCOCCAL: 65+ (1 - PCV) [facility] Start: 02-15-2017 Zoster Vaccines (2 of 3) Zoster Vaccines (2 of 3) [facility] Start: 2013 RSV patients and/or patients aged 60+ years (1 - 1-dose 60+ series) RSV patients and/or patients aged 60+ years (1 - 1-dose 60+ series) [facility] Start: 2003 SHINGRIX VACCINE (1 of 2) SHINGRIX VACCINE (1 of 2) [facility] Start: 1998 COLOGUARD (FIT-DNA) COLOGUARD (FIT-DNA) [facility] Start: 1998 Colonoscopy COLONOSCOPY [facility] Start: 1998 COLORECTAL CANCER SCREENING COLORECTAL CANCER SCREENING [facility] Start: [address] COLONOGRAPHY [facility] Start: 1998 DIABETES SCREEN DIABETES SCREEN [facility] Start: 1998 FECAL OCCULT BLOOD FECAL OCCULT BLOOD [facility] Start: 1998 SIGMOIDOSCOPY SIGMOIDOSCOPY [facility] Start: 01-02-1988 LIPID SCREEN LIPID SCREEN [facility] Start: 01-02-1972 Urine microalbumin profile DTAP,TDAP,TD (1 - Tdap) [facility] Start: 1971 Diabetes mellitus screening Diabetes Screening [facility] Start: 1971 HEPATITIS C SCREENING HEPATITIS C SCREENING [facility] Start: 1971 Hepatitis C screening Hepatitis C Screening [facility] Start: 1953 COVID-19 VACCINE (#1) COVID-19 VACCINE (#1) [facility] Start: 1953 Creatinine measurement Creatinine Level [facility] Start: 1953 Lipid panel Lipid Panel [facility] Start: 1953 Medicare Annual Wellness Visit Medicare Annual Wellness Visit (AWV) [facility] Start: 1953 Potassium measurement Potassium Level [facility] Start: 1953 Screening for malignant neoplasm of colon [facility] End: 07-21-2023 Mri brain brain stem w/o w/contrast material MRI BRAIN WO/W IVCON Radiology Routine Paralytic strabismus 1 Occurrences starting 06/21/2022 until 07/21/2023 [facility] Work Phone: Comment on above: 1 Occurrences starting 06/21/2022 until 07/21/2023 End: 07-21-2023 Mri orbit face & neck w/o & w/contrast matrl MRI SOFT TISSUE NECK WO/W IVCON Radiology Routine 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 until 07/21/2023 [facility] Work Phone: Comment on above: 1 Occurrences starting 06/21/2022 until 07/21/2023 Patient Education COPD Exacerbat ion, Adult ED [facility] Work Phone: Patient referral [facility] Work Phone: [facility] Immunizations Immunization Date Immunization Notes Care Provider Fa cili 04-16-2019 Seasonal trivalent influenza vaccine, adjuvanted, preservative free Sera Flower Work Phone: [place] [address] DO Work Phone: 04-16-2019 influenza virus vacc ine, unspecified formulation Rene Castro MD Work Phone: [facility] Work Phone: 03-28-2019 influenza virus vacc ine, unspecified formulation Sera Flower Work Phone: [place] [address] DO Work Phone: 08-16-2018 influenza, seasonal, injectable, preservative free Sera Flower Work Phone: [place] [address] DO Work Phone: 08-16-2018 pneumococcal conjuga te vaccine, 13 valent Sera Flower Work Phone: [facility] Synoste Oy DO Work Phone: 05-28-2018 pneumococcal polysaccharide vaccine, 23 valent Sera Flower Work Phone: [place] [address] DO Work Phone: 08-10-2017 tetanus toxoid, redu daniel diphtheria toxoid, and acellular pertussis vaccine, adsorbed Sera Flower Work Phone: [place] [address] DO Work Phone: 12-21-2016 zoster vaccine, live Sera Flower Work Phone: [place] [address] DO Work Phone: 09-30-2012 pneumococcal polysaccharide vaccine, 23 valent Sera Flower Work Phone: [place] [address] DO Work Phone: 09-30-2012 pneumococcal vaccine , unspecified formulation Hosea Sifuentes DO Work Phone: [facility] 05-28-2010 influenza virus vacc ine, unspecified formulation Rene Castro MD Work Phone: [facility] Work Phone: 03-28-2010 influenza, seasonal, injectable, preservative free Rene Castro MD Work Phone: [facility] Work Phone: 2007 TD(adult) unspecifie d formulation Hosea Sifuentes DO Work Phone: [facility] influenza virus vacc ine, unspecified formulation Sera Flower Work Phone: [place] [address] DO Work Phone: Comment on above: Mar 20102010 Payers Date Payer Category Payer Private Health Insurance HUMANA HUMANA HMO/POS [id number] 2023-Present [address] [address] [place] [address] [id number] 2023 Self-pay [id number] 2022 [facility] of [facility] e ( and others) [id number] 2022 [employer] [place] [employer] ( and others) [id number] 2022 Medicare [id number] 2021 [employer] ( and others) [id number] 2021 Unknown 2017 Medicare [id number] 2017 Medicare [id number] 1955 Unknown [id number] [id number]. 356 1955 Unknown [id number] 2.16.840.1.962236.3.579.2. 356 1953 Unknown [id number] 2.16.840.1.810039.3.579.2. 1068 1953 Unknown [id number] 2.16.840.1.643655.3.579.2. 1068 1953 Unknown [id number] 2.16.840.1.778876.3.579.2. 1259 1953 Unknown [id number] 2.16.840.1.427813.3.579.2. 1259 1953 Unknown [id number] 2.16.840.1.697204.3.579.2. 1259 1953 Unknown [id number] 2.16.840.1.609186.3.579.2. 1259 1953 Unknown [id number] 2.16.840.1.276749.3.579.2. 1259 1953 Unknown [id number] 2.16.840.1.374826.3.579.2. 1259 1953 Unknown [id number] 2.16.840.1.378525.3.579.2. 1259 1953 Unknown [id number] 2.16.840.1.680782.3.579.2. 1244 1953 Unknown [id number] 2.16.840.1.733602.3.579.2. 1244 [employer] ( and others) [id number] Unknown [id number] 2.16840.1.655238.3.579.2. 531 Unknown [id number] 2.16.840.1.085624.3.579.2. 531 Social History Date Type Detail Facility Start: 03-23-2023 End: 10-18-2023 No alcohol use No alcohol use [facility] 250 DO Work Phone: Comment on above: 5 CUPS OF COFFEE ANICETO LY; QUIT IN 1984; Start: 05-01-2022 End: 06-14-2023 Tobacco smoking status [facility] Never smoked tobacco [facility] Start: 05-01-2022 End: 10-18-2023 Tobacco use and exposure Smokeless tobacco non-user [facility] Start: 05-01-2022 End: 11-14-2022 Alcohol intake Ex-drinker (finding) [facility] Start: 1955 Sex Assigned At Not on file C [facility] Start: 10-15-2020 End: 10-18-2023 Tobacco smoking status UTIS Ex-smoker (finding) [facility] Start: 1955 Sex Assigned At Male F [facility] End: 05-28-1992 History of tobacco use Current smoker [facility] Work Phone: End: 05-28-1992 History of tobacco use Cigarette Smoker [facility] Work Phone: Start: 03-23-2023 End: 10-18-2023 Alcohol intake Lifetime non-drinker (finding) [facility] Work Phone: Start: 03-23-2023 End: 10-18-2023 Tobacco use panel [facility] Work Phone: Start: 03-13-2023 End: 10-18-2023 Exposure to SARS-CoV-2 (event) Not sure [facility] Start: 03-14-2023 Alcohol Comment caffeine: coff [...] emphasis on low-calorie diet Rene Castro MD, [facility] Review of Systems All other systems [...] , Rfl: omega-3 fatty acids-fish oil (One-Per-Day Ren[place]-3) 684-1,200 mg capsule, Take as directed, Disp: [...] 3 Assessment/Plan 1. Coronary artery disease involving [place] coronary artery of [place] heart without angina pectoris Follow Up In [...] discussion and plan. documented in this encounter [facility] Work Phone: 10-18-2023 Instructions Ana Cunningham [...] up 6 months documented in this encounter [facility] Work Phone: 06-30-2023 History of Presen [...] emphasis on low-calorie diet Rene Castro MD, [facility] Review of Systems All other systems [...] , Rfl: omega-3 fatty acids-fish oil (One-Per-Day [place]-3) 684-1,200 mg capsule, Take as directed, Disp: [...] Rfl: Assessment/Plan 1. Coronary artery disease involving [place] coronary artery of [place] heart without angina pectoris Follow Up In [...] Aminotransferase Alanine Aminotransferase documented in this encounter [facility] Work Phone: 03-23-2023 Instructions Millie Hoffmann [...] of your visit. documented in this encounter [facility] Work Phone: 11-14-2022 Note HNO ID: [id number] Author: Deandra Bender MD Service: ? Author [...] facial palsy H/o Botox injections in [place]-->didn't help No h/o trauma H/o sinus surgery [...] can I get the FL-41 filter? Any [facility] location, (with an optical shop), throughout [place], Email: [email or web address] [employer] [facility] in [place], [place], [facility] in [place], [place], [facility] in [place], [place], [facility] [facility] in [place], [place], [phone] [email or web address] Botulinum toxin 3 months, Botulinum toxin [...] Bender MD, November 14, 2022 10:00 AM. [facility] 11-14-2022 History of Presen t illness Narrative Here for botox Right eye just started twitching Tears as needed. -rofPatient still having twitching right eye and occasionally the left. Refresh tears four times a day. -rof A/P: Right hemifacial spasm x 2 years Patient doesn't remember h/o bells or facial palsy H/o Botox injections in [place]-->didn't help No h/o trauma H/o sinus surgery [...] can I get the FL-41 filter? Any [facility] location, (with an optical shop), throughout [place], Email: [email or web address] [employer] [facility] in [place], [place], [facility] in [place], [place], [facility] in [place], [place], [employer] in [place], [place], [email or web address] Botulinum toxin 3 months, Botulinum toxin [...] 2022 10:00 AM. documented in this encounter [facility] 08-08-2022 Note HNO ID: [id number] Author: Deandra Bender MD Service: ? Author [...] Bender MD, August 08, 2022 3:05 PM. [facility] 08-08-2022 History of Presen t illness Narrative Patient still having twitching right eye and occasionally the left. Refresh tears four times a day. -rof A/P: Right hemifacial spasm x 2 years Patient doesn't remember h/o bells or facial palsy H/o Botox injections in [place]-->didn't help No h/o trauma H/o sinus surgery [...] 2022 3:05 PM. documented in this encounter [facility] 08-08-2022 Instructions Deandra Bender MD - [...] Recheck next visit documented in this encounter [facility] 06-21-2022 Miscellaneous Notes Notes and MRI orders faxed to [facility]. [facility] today. : 1955 Allergies: Codeine, Codeine-Guaifenesin, and Guaifenesin (home) [phone] (cell) Reason for call: Sasha F:[phone] Asking for the MRI orders and office notes to be faxed over to [facility]. Patient will be having them done there. Patient last appointment: Visit date not found The patients preferred pharmacy has been captured for this encounter? not asked Delores Mccollum documented in this encounter [facility] 06-21-2022 Note HNO ID: [id number] Author: Deandra Bender MD Service: ? Author Type: Physician Type: Progress Notes Filed: 06/21/2022 9:08 AM Note Text: Twitching right eye x two years. Both upper and lower lid. Trouble reading because of it. +tearing and burning. Refresh four times a day. -rof A/P: Right hemifacial spasm x 2 years Patient doesn't remember h/o bells or facial palsy H/o Botox injections in [place]-->didn't help No h/o trauma H/o sinus surgery [...] Bender MD, June 21, 2022 9:05 AM. [facility] 06-21-2022 Instructions Deandra Bender MD [...] and get MRI documented in this encounter [facility] 06-21-2022 History of Presen t illness Narrative Twitching right eye x two years. Both upper and lower lid. Trouble reading because of it. +tearing and burning. Refresh four times a day. -rof A/P: Right hemifacial spasm x 2 years Patient doesn't remember h/o bells or facial palsy H/o Botox injections in [place]-->didn't help No h/o trauma H/o sinus surgery [...] 2022 9:05 AM. documented in this encounter [facility] 05-01-2022 Note HNO ID: [id number] Author: Mau Randle OD Service: ? Author Type: DATABASE MANAGEMENT SYSTEM SPECIALIST Type: Progress Notes Filed: 05/01/2022 9:22 AM [...] of its relevant components. 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 documented in this encounter [facility]* Diagnosis Clonic hemifacial spasm, right- Primary documented in this encounter [facility]* Diagnosis Clonic hemifacial spasm, right- Primary [facility] noteNo assessment information availablePrem[facility] Work Phone: Evaluation note* Diagnosis Coronary artery disease involving [place] coronary artery of [place] heart without angina pectoris Essential hypertension Unspecified essential hypertension Mixed hyperlipidemia Ischemic cardiomyopathy Other specified forms of chronic ischemic heart disease Status post coronary artery stent placement Postsurgical percutaneous transluminal coronary angioplasty status Class 2 obesity with body mass index (BMI) of 35.0 to 35.9 in adult, unspecified obesity type, unspecified whether serious comorbidity present documented in this encounter [facility] Work Phone: Evaluation note* Diagnosis Acute exacerbation of chronic obstructive pulmonary disease (CMS/HCC)- Primary Obstructive chronic bronchitis with exacerbation [facility] Coronary artery disease involving [place] coronary artery of [place] heart without angina pectoris- Primary Essential hypertension [...] hazards to health documented in this encounter [facility] Work Phone: Hospital Discharge instructions Additional Instructions If your symptoms return/worsen or you develop any further concerns or symptoms please see your doctor or return to the emergency department immediately.[facility] Work Phone: Reason for referral (narrative)* Consultation (Routine) - Authorized Specialty Diagnoses / Procedures Referred By Contac t Referred To Contact Cardiology Diagnoses Coronary artery disease involving [place] coronary artery of [place] heart without angina pectoris Essential hypertension Mixed hyperlipidemia Ischemic cardiomyopathy Status post coronary artery stent placement Class 2 obesity with body mass index (BMI) of 35.0 to 35.9 in adult, unspecified obesity type, unspecified whether serious comorbidity present Procedures Follow Up In Cardiology Rene Castro MD [facility] [address] [place] [address] Rene Castro MD [address] [place] [address] [address] [place] [id number] Referral ID Status Reason Start Date Expiration Date V isits Requested Visits Authorized [id number] Authorized 03/23/2023 03/22/2024 1 1 [facility] Work Phone: Reamew for referral (narrative)* Consultation (Routine) - Authorized Specialty Diagnoses / Procedures Referred By Contac t Referred To Contact Cardiology Diagnoses Coronary artery disease involving [place] coronary artery of [place] heart without angina pectoris Procedures Follow Up In Cardiology Rene Castro MD [address] [place] [address] Rene Castro MD [address] [place] [id number] Referral ID Status Reason Start Date Expiration Date V isits Requested Visits Authorized [id number] Authorized 10/18/2023 10/17/2024 1 1 [facility] Work Phone: Chief Complaint * [...] infarction with no ischemia. EF in the [id number]. He remains compensated as for ischemic cardiomyopathy. [...] on low-calorie diet * Rene Castro MD, [facility] Family History No Family History Records [...] W/O & W/CONTRAST Deandra Troncoso MD [address] [place] [address] Mr Imaging Referral ID Status Reason Start Date Expiration Date Visits Requested Visits Authorized [id number] Pending Review Auto-Generat ed Referral 06/21/2022 07/21/2023 1 1 Specialty Diagnoses / Procedures Referred By Contac t Referred To Contact MR IMAGING Diagnoses Paralytic strabismus Procedures MRI BRAIN WO/W IVCON MRI BRAIN BRAIN STEM W/O W/CONTRAST MATERIAL Deandra Bender MD [address] [place] [address] Mr Imaging Referral ID Status Reason Start Date Expiration Date Visits Requested Visits Authorized [id number] Pending Review Auto-Generat ed Referral 06/21/2022 07/21/2023 [...] or prosecute any alcohol or drug abuse patient.[facility] the event this information is protected by the Federal Confidentiality of Alcohol and Drug Abuse Patient Records regulations: The Federal rules restrict any use of the information to criminally investigate or prosecute any alcohol or drug abuse patient.[facility] the event this information is protected by the Federal Confidentiality of Alcohol and Drug Abuse Patient Records regulations: The Federal rules restrict any use of the information to criminally investigate or prosecute any alcohol or drug abuse patient.[facility] the event this information is protected by the Federal Confidentiality of Alcohol and Drug Abuse Patient Records regulations: The Federal rules restrict any use of the information to criminally investigate or prosecute any alcohol or drug abuse patient.[facility] the event this information is protected by the Federal Confidentiality of Alcohol and Drug Abuse Patient Records regulations: The Federal rules restrict any use of the information to criminally investigate or prosecute any alcohol or drug abuse patient.[facility] Reason for Visit (unrecogniz ed section [...] , up to 100 units Procedures BOTOX [id number] [place] [address] [place] [address] Deandra Bender MD [address] [place] [address] Referral ID Status Reason Start Date Expiration Date V isits Requested Visits Authorized [id number] Authorized 11/14/2022 05/27/2023 99 99 Reason Comments Follow-up 6 months Reason Comments Follow-up 6m Specialty Diagnoses / Procedures Referred By Contac t Referred To Contact Cardiology Diagnoses Coronary artery disease involving [place] coronary artery of [place] heart without angina pectoris Essential hypertension Mixed hyperlipidemia Ischemic cardiomyopathy Status post coronary artery stent placement Class 2 obesity with body mass index (BMI) of 35.0 to 35.9 in adult, unspecified obesity type, unspecified whether serious comorbidity present Procedures Follow Up In Cardiology Rene Castro MD [address] [place] [address] 2, [address] [address] Rene Castro MD [address] [place] [address] 2, [address] [address] Referral ID Status Reason Start Date Expiration Date V isits Requested Visits Authorized [id number] Authorized 03/23/2023 03/22/2024 1 1 (unrecognized sect ion and content) No Status Records FoundNo Status Records FoundNo Status Records FoundNo Status Records FoundNo Status Records FoundNo Status Records FoundNo Status Records FoundNo Status Records Found INFORMATION SOURCE (unrecogn ized section and content) DATE CREATED AUTHOR 07/16/2022 [facility] dical Specialist DATE CREATED AUTHOR AUTHOR'S ORGANIZ ATION 09/09/2022 [employer] DATE CREATED AUTHOR AUTHOR'S ORGANIZ ATION 11/14/2022 [facility] DATE CREATED AUTHOR AUTHOR'S ORGANIZ ATION 02/12/2023 [facility] Center DATE CREATED AUTHOR AUTHOR'S ORGANIZ ATION 02/28/2023 [facility] DATE CREATED AUTHOR AUTHOR'S ORGANIZ ATION 06/25/2023 [facility] DATE CREATED AUTHOR AUTHOR'S ORGANIZ ATION 01/03/2024 [facility] dical Specialists EPIC DATE CREATED AUTHOR AUTHOR'S ORGANIZ ATION 01/04/2024 [facility] [employer] Teams (unrecognized sec tion and content) Team Status: Active Member Role Status Dates Sera Flower MD Primary Care Provider Active Team Status: Inactive Member Role Status Dates Sera Flower MD Primary Care Provider, Other Provider Active Rene Castro MD Attending Provider Active Zone Manager Relationship Specialty Start Date End Date Sera Flower MD [address] [place] [address] PCP - General 02/16/21 Team Status: Inactive Member Role Status Dates Sera Flower MD Primary Care Provider Active St art: June 14, 2023 End: June 14, 2023 Jasper Martinez DO Emergency Provider Active Start: June 14, 2023 End: June 14, 2023 Zone Manager Relationship Specialty Start Date End Date Sera Flower MD [address] [place] [address] PCP - [employer] 1/1/23 Sera Flower MD [address] [place] [address] PCP - General Internal Medicine 10/03/22 Zone Manager Relationship Specialty Start Date End Date Sera Flower MD [address] [place] [id number] PCP - General 02/16/21 Goals (unrecognized section [...] BE BASED ON THE PRIMARY CLINICAL RECORDS. [facility] [employer] [facility]. provides no warranty or guarantee of the accuracy or completeness of information in this document.
--- NOTE | 2024-02-17 10:45 | XR_ITS ---
The [address] [address] Patient Name: DEMARCUS CALDERON MRN: [id number] date: 1955 Sex: M Assigned Patient Location: ER Current Patient Location: ER Accession/Order Number: [id number] Exam Date: 02/17/2024 11:02 Report Date: 02/17/2024 11:40 At the request of: INDRA BERNARD Procedure: XR chest 1V EXAM: XR chest 1V HISTORY: Fever. COMPARISON: Portable chest radiograph dated 02/15/2024. TECHNIQUE: AP erect portable view of the chest performed. FINDINGS: Stable mild prominence of the cardiac silhouette. Stable mild atheromatous calcification at the aortic arch. New patchy airspace disease within the right mid and lower lung zones which in the right clinical setting is consistent with a pneumonia. There is no pleural effusion or pulmonary vascular congestion. There is no pneumothorax or acute osseous abnormality. XR/XR chest 1V IMPRESSION: There is new patchy airspace disease within the right mid and lower lung zones which in the right clinical setting is consistent with a pneumonia. Electronically authenticated by: CANDELARIO GARZA Date: 02/17/2024 11:40
--- NOTE | 2024-02-17 10:47 | ED.GENADUL1 ---
HPI HPI - General Adult General Chief complaint: Abdominal Pain Stated complaint: SHAKING, ABDOMINAL PAIN, BURNING WHEN URINATING Time Seen by Provider: 02/17/24 10:31 Source: patient and family Mode of arrival: Wheelchair Limitations: physical limitation History of Present Illness HPI narrative: 69-year-old male presented for not feeling well. 2 days ago he had come to this emergency department and was admitted for feeling weak and feeling shaky. He went home yesterday. Last night he seemed to get worse and became more shaky and his checked his temperature at home and he had a fever. He states he has some burning on urination as well. No vomiting or diarrhea or skin rash. His appetite has not been as good as usual. Related Data Home Medications ?Medication ?Instructions ?Recorded ?Confirmed carvedilol 6.25 mg tablet 6.25 mg PO Q12H 07/22/23 02/15/24 losartan 50 mg tablet 50 mg PO DAILY 07/22/23 02/15/24 omeprazole 20 mg capsule,delayed 20 mg PO Q24H 07/22/23 02/15/24 release tamsulosin 0.4 mg capsule 0.4 mg PO DAILY 07/22/23 02/15/24 sodium chloride 0.9 % for 3 ml inhalation BID 02/15/24 02/15/24 nebulization Previous Rx's ?Medication ?Instructions ?Recorded albuterol sulfate 90 mcg/actuation 2 inh inhalation Q6H PRN shortness 12/25/23 aerosol inhaler (Ventolin HFA) of breath or wheezing #6.7 grams furosemide 40 mg tablet (Lasix) 40 mg PO DAILY #30 tabs 12/25/23 ipratropium 0.5 mg-albuterol 3 mg 3 ml inhalation Q6H PRN shortness 02/02/24 (2.5 mg base)/3 mL nebulization of breath #90 mL soln Allergies Allergy/AdvReac Type Severity Reaction Status Date / Time codeine Allergy Intermediate Hallucinati Verified 02/17/24 10:37 ng Opioid HPI Opioid Management Most Recent Opioid Data: Last Pain Scale 3 02/16/24 09:49 Last Pain Assessment 02/16/24 12:52 Last MAR Pain Assessment 02/17/24 11:12 Last ORT Total Score 0 02/15/24 18:17 Last ORT Risk Category Low Risk 02/15/24 18:17 Review of Systems ROS Narrative A ten point review of systems is negative except as noted above. [facility] Medical History (Updated 02/17/24 @ 12:04 by Huseyin Parmar MD) Pneumonia due to COVID-19 virus ?U07.1 - COVID-19 (ICD-10) ?J12.82 - Pneumonia due to coronavirus disease 2019 (ICD-10) COVID-19 ?U07.1 - COVID-19 (ICD-10) Acute on chronic congestive heart failure ?I50.9 - Heart failure, unspecified (ICD-10) COPD exacerbation ?J44.1 - Chronic obstructive pulmonary disease with (acute) exacerbation (ICD-10) Congestive heart failure ?I50.9 - Heart failure, unspecified (ICD-10) BPH (benign prostatic hyperplasia) ?N40.0 - Benign prostatic hyperplasia without lower urinary tract symptoms (ICD-10) CAD (coronary artery disease) ?I25.10 - Atherosclerotic heart disease of [place] coronary artery without angina pectoris (ICD-10) GERD (gastroesophageal reflux disease) ?K21.9 - Gastro-esophageal reflux disease without esophagitis (ICD-10) Hypertension ?I10 - Essential (primary) hypertension (ICD-10) COPD (chronic obstructive pulmonary disease) ?J44.9 - Chronic obstructive pulmonary disease, unspecified (ICD-10) Bronchitis ?J40 - Bronchitis, not specified as acute or chronic (ICD-10) Emphysema of lung ?J43.9 - Emphysema, unspecified (ICD-10) Heart attack ?I21.9 - Acute myocardial infarction, unspecified (ICD-10) COPD exacerbation ?J44.1 - Chronic obstructive pulmonary disease with (acute) exacerbation (ICD-10) COVID-19 ?U07.1 - COVID-19 (ICD-10) Surgical History H/O sinus surgery ?Z98.890 - Other specified postprocedural states (ICD-10) H/O shoulder surgery ?Z98.890 - Other specified postprocedural states (ICD-10) H/O heart artery stent ?Z95.5 - Presence of coronary angioplasty implant and graft (ICD-10) Family History Aunt Family history of cancer Mother Family history of diabetes mellitus Brother Family history of hypertension Father Family history of hypertension Social History Within the past year, how often did you have a drink containing alcohol: never Score interpretation: A score less than 4 is consistent with normal alcohol consumption. Smoking status: Former smoker Non-prescribed substance use: denies use Previous occupational history: [employer] Known occupational exposures/hazards: No Highest level of school completed/degree received: high school graduate Are you now , , , , never or living with a partner: In a typical week, how many times do you talk on the telephone with family, friends, or neighbors: 3 or more times per week How often do you get together with friends or relatives: 3 or more times per week How often do you attend rastafari or christian services: never Little interest or pleasure in doing things: not at all Feeling down, depressed, or hopeless: not at all Feel stressed/tense/nervous/anxious/difficulty sleeping: not at all Do you think of yourself as: straight/heterosexual Gender Identity: male Exam Narrative Exam Narrative: Nurses note and vital signs reviewed and patient is not hypoxic. General: The patient appears in no apparent distress. Skin: Warm, dry, no pallor noted. There is no rash noted. Head: Normocephalic, atraumatic Eye: Normal conjunctiva, no drainage Ears, Nose, Mouth, and Throat: oral mucosa is moist. Nares patent. Cardiovascular: Regular Rate and Rhythm Respiratory: Patient is in no distress, no accessory muscle use, lungs are clear to auscultation, no wheezing, rales or rhonchi Back: non-tender GI: Soft and no appreciable tenderness. No masses. Musculoskeletal: The patient has no evidence of calf tenderness, no pitting edema, symmetrical pulses noted bilaterally Neurological: A&O, normal speech, mildly tremorous Psychiatric: Cooperative Constitutional Vital Signs, click to edit/add: Last Vital Signs Temp 101 F H 02/17/24 10:33 Pulse 82 02/17/24 11:00 Resp 20 02/17/24 11:00 BP 131/65 02/17/24 11:00 Pulse Ox 97 02/17/24 11:00 O2 Del Method Room Air 02/17/24 10:33 Course Vital Signs Vital signs: Vital Signs Temperature 101 F H 02/17/24 10:33 Pulse Rate 86 02/17/24 10:33 Respiratory Rate 18 02/17/24 10:33 Blood Pressure 148/77 H 02/17/24 10:33 Pulse Oximetry 97 02/17/24 10:33 Oxygen Delivery Method Room Air 02/17/24 10:33 Temperature 101 F H 02/17/24 10:33 Pulse Rate 82 02/17/24 11:00 Respiratory Rate 20 02/17/24 11:00 Blood Pressure 131/65 02/17/24 11:00 Pulse Oximetry 97 02/17/24 11:00 Oxygen Delivery Method Room Air 02/17/24 10:33 Medical Decision Making MDM Narrative Medical decision making narrative: Pneumonia is identified today which she did not have 2 days ago. WBC is 16,000. No evidence of UTI. He was unable to urinate and bladder scan showed a large amount of urine and a [place] catheter was inserted. Blood cultures were obtained with lactic acid pending and he is given IV Rocephin and Zithromax. Findings are discussed with the patient and his family. COVID test negative. Differential Diagnosis Differential Diagnosis: UTI, pneumonia, COVID Lab Data Lab results reviewed: Yes I reviewed the patient's lab results Labs: Lab Results 02/17/24 02/17/24 02/17/24 Range/Units 10:40 10:55 11:25 WBC 16.1 H (4.0-11.0) 10^3/uL RBC 4.48 L (4.70-6.10) 10^6/uL Hgb 13.0 L (14.0-18.0) g/dL Hct 37.8 L (42.0-54.0) % MCV 84.4 (80.0-94.0) fL MCH 29.0 (25.9-34.0) pg MCHC 34.4 (29.9-35.2) g/dL RDW 14.1 (11.0-15.0) % Plt Count 141 L (150-450) 10^3/uL MPV 10.8 (9.5-13.5) fL Neut % (Auto) 85.4 H (43.0-75.0) % Lymph % (Auto) 6.6 L (20.5-60.0) % [place] % (Auto) 6.3 (1.7-12.0) % Eos % (Auto) 0.4 L (0.9-7.0) % Baso % (Auto) 0.4 (0.2-2.0) % Neut # (Auto) 13.8 H (1.4-6.5) 10^3/uL Lymph # (Auto) 1.1 L (1.2-3.8) 10^3/uL [place] # (Auto) 1.0 H (0.3-0.8) 10^3/uL Eos # (Auto) 0.1 (0.0-0.7) 10^3/uL Baso # (Auto) 0.1 (0.0-0.1) 10^3/uL Abs Immat Gran (auto) 0.14 H (0.00-0.03) 10^3/uL Imm/Tot Granulo (auto) 0.9 H (0.0-0.5) % Sodium 128 L (136-145) mmol/L Potassium 3.6 (3.5-5.1) mmol/L Chloride 95 L (98-107) mmol/L Carbon Dioxide 26.2 (21.0-32.0) mmol/L Anion Gap 10.4 BUN 8.0 (7.0-18.0) mg/dL Creatinine 1.01 (0.70-1.30) mg/dL Est GFR ( Amer) >60 (>=60) Est GFR (Non-Af Amer) >60 (>=60) BUN/Creatinine Ratio 7.9 Glucose 126 H (74-106) mg/dL Lactate 2.0 (0.4-2.0) mmol/L Calcium 8.5 (8.5-10.1) mg/dL Urine Color Lt. yellow (YELLOW) Urine Clarity Clear (CLEAR) Urine pH 7.0 (5.0-9.0) Ur Specific [place] 1.010 (1.005-1.025) Urine Protein Negative (NEG/TRACE) mg/dL Urine Glucose (UA) Negative (NEGATIVE) mg/dL Urine Ketones Negative (NEGATIVE) mg/dL Urine Occult Blood Small A (NEGATIVE) Urine Nitrite Negative (NEGATIVE) Urine Bilirubin Negative (NEGATIVE) Urine Urobilinogen 0.2 (0.2-1.0) EU/dL Ur Leukocyte Esterase Negative (NEGATIVE) Urine RBC 0-2 (0-2) #/HPF Urine WBC None seen (NONE SEEN) #/HPF Ur Squamous Epith Cells None seen (NONE/RARE) #/LPF Urine Crystals None seen (None Seen) #/HPF Urine Bacteria None seen (NONE SEEN) #/HPF Urine Casts None seen (NONE SEEN) #/LPF Urine Mucus None seen (NONE SEEN) SARS-CoV-2 Ag (CV2AG) Negative (NEGATIVE) Imaging Data Chest x-ray: Radiologist's impression: ITS Impressions Chest X-Ray 02/17/24 10:45 IMPRESSION: There is new patchy airspace disease within the right mid and lower lung zones which in the right clinical setting is consistent with a pneumonia. Electronically authenticated by: CANDELARIO GARZA Date: 02/17/2024 11:40 ECG Data Attestation: I personally reviewed and interpreted this ECG as follows: (EKG on my interpretation shows sinus rhythm with a rate of 84 and no acute change) Discharge Plan Discharge Chief Complaint: Abdominal Pain Clinical Impression: Pneumonia Patient Disposition: Admitted As Inpatient Time of Disposition Decision: 12:04 Condition: Good
--- NOTE | 2024-02-17 11:07 | PC.NURSE ---
during straight cath, this RN got out approx 500ml of urine -- proceeded afterwards to bladder scan post void and 480ml of urine still remained in bladder. Pt does admit to having enlarged prostate. Dr Parmar informed and verbal order for jewell catheter received.
--- NOTE | 2024-02-17 11:08 | ECG_ITS ---
[facility] Test Date: 2024-02-17 Pat Name: DEMARCUS CALDERON Department: Room: - Gender: Male Supervisor Kennel: : 1955 Requested By: Order Number: [id number] Reading MD: LATOSHA FRANCIS Measurements Intervals [place] Rate: 84 P: 52 VA: 164 QRS: 2 QRSD: 96 T: 62 QT: 350 QTc: 391 Interpretive Statements 1100 Sinus rhythm 4068 Nonspecific [place] abnormality 9130 borderline ECG Compared to ECG 02/15/2024 16:01:18 Myocardial infarct finding no longer present Electronically Signed On 02-17-2024 20:28:01 EDT by LATOSHA FRANCIS
[2024-02-17] MEDS: 0.9 % SODIUM CHLORIDE 1,000 ML 200 ML IV (11:12)
[2024-02-17] MEDS: ACETAMINOPHEN 325 MG TABLET 650 MG PO (11:12)
[2024-02-17 11:20] LABS: Anion Gap 10.4; BUN Creatinine Ratio 7.9; Calcium 8.5 mg/dL (8.5-10.1); Carbon Dioxide 26.2 mmol/L (21.0-32.0); Chloride 95 mmol/L (98-107); Estimated GFR (African America >60 (>=60); Estimated GFR (Non-African Ame >60 (>=60); Glucose 126 mg/dL (74-106); Potassium 3.6 mmol/L (3.5-5.1); Sodium 128 mmol/L (136-145)
[2024-02-17 11:21] LABS: Basophils Absolute Auto 0.1 10^3/uL (0.0-0.1); Basophils Percent Auto 0.4 % (0.2-2.0); Eosinophils Absolute Auto 0.1 10^3/uL (0.0-0.7); Eosinophils Percent Auto 0.4 % (0.9-7.0); Hematocrit 37.8 % (42.0-54.0); Immature Granulocytes Abs Auto 0.14 10^3/uL (0.00-0.03); Immature Granulocytes Pct Auto 0.9 % (0.0-0.5); Lymphocytes Absolute Auto 1.1 10^3/uL (1.2-3.8); Lymphocytes Percent Auto 6.6 % (20.5-60.0); Mean Corpuscular HGB Conc 34.4 g/dL (29.9-35.2); Mean Corpuscular Volume 84.4 fL (80.0-94.0); Mean Platelet Volume 10.8 fL (9.5-13.5); Monocytes Percent Auto 6.3 % (1.7-12.0); Neutrophils Absolute Auto 13.8 10^3/uL (1.4-6.5); Neutrophils Percent Auto 85.4 % (43.0-75.0); Platelet Count 141 10^3/uL (150-450); Red Blood Count 4.48 10^6/uL (4.70-6.10); Red Cell Distribution Width 14.1 % (11.0-15.0); White Blood Count 16.1 10^3/uL (4.0-11.0)
[2024-02-17 11:25] LABS: Bilirubin Urine NEGATIVE (NEGATIVE); Blood Urine SMALL (NEGATIVE); Clarity Urine CLEAR (CLEAR); Color Urine LT. YELLOW (YELLOW); Glucose Urine UA NEGATIVE (NEGATIVE); Ketones Urine NEGATIVE (NEGATIVE); Leukocyte Esterase Urine NEGATIVE (NEGATIVE); Nitrite Urine NEGATIVE (NEGATIVE); Protein Urine NEGATIVE (NEG/TRACE); Urobilinogen Urine 0.2 EU/dL (0.2-1.0)
[2024-02-17 11:41] LABS: Bacteria Urine NONE SEEN #/HPF (NONE SEEN); Cast Seen? NONE SEEN #/LPF (NONE SEEN); Crystals Seen? None Seen #/HPF (None Seen); Mucus Urine NONE SEEN (NONE SEEN); RBC Urine 0-2 #/HPF (0-2); Squamous Epithelial Cell Urine NONE SEEN #/LPF (NONE/RARE); WBC Urine NONE SEEN #/HPF (NONE SEEN)
[2024-02-17 11:42] LABS: Internal Control Within Normal Limits; SARS-CoV-2 Ag NEGATIVE (NEGATIVE)
[2024-02-17] MEDS: CEFTRIAXONE 1,000 MG in 0.9 % SODIUM CHLORIDE 50 ML 100 MG IV (12:16)
[2024-02-17] MEDS: AZITHROMYCIN 500 MG in 0.9 % SODIUM CHLORIDE 250 ML 250 MG IV (12:43)
--- OUTSIDE RECORDS SUMMARY | 2024-02-17 12:53 | XMS_ITS | CCD ---
Author Organization [facility] Care Team Providers Care Review Engineer Name Role Phone Sera Flower Unavailable Unavailable Unavailable Unavailable Primary Care Provider Unavailabl e Unavailable Unavailable DEANDRA BENDER Attending Unavailable DEANDRA BENDER Referring Unavailable MAU RANDLE Attending Unavailable DEANDRA BENDER Attending Unavailable DEANDRA BENDER Attending Unavailable DEANDRA BENDER Referring Unavailable MD Sera Flower Primary Care Provider MD Sera Flower Other Provider MD Rene Castro Attending Provider [phone] Dr. Sera Flower Primary Care Unavailab Rene Nobles Referring Unavailable Anjel, Dr. Sera Frost Primary Care Unavailab Rene Nobles Attending Unavailable Dr. Sera Flower Primary Care Unavailab Rene Nobles Attending Unavailable Anjel, Dr. Sera Frost Primary Care Unavailab Rene Nobles Attending Unavailable Sera Flower MD Primary Care Provider MD Sera Flower Primary Care Provider DO Jasper Martinez Emergency Provider [phone] Jasper Martinez Admitting Unavailable Jasper Martinez Attending Unavailable Sera Flower Primary Care Unavailable Rene Castro Attending Unavailable Sera Flower Primary Care Unavailable Sera Flower Consulting Rene Sauer Admitting Unavailable Sera Flower MD Unavailable Sera Flowre MD Primary Care Provider RENZO WEAVER Attending [...] 6 Vomiting, Unknown, Nausea And Vomiting, Other [facility] (6 sources) Codeine / guaiFENesin; Translations: [CODEINE-GUAIFEN ESIN] Drug Allergy 1 Other: See Comments [facility] (6 sources) guaiFENesin; Translations: [GUAIFENESIN] Drug Allergy 3 Other: See Comments [facility] (1 source) Codeine Drug Allergy 4 [facility] Rep[facility] (2 sources) guaiFENesin Drug Allergy 3 Other [facility] Medications Current Medications Medication Drug Class(es) Dates Sig (Normalized) Sig (Original) albuterol 0.83 mg/ml inhalation solution (14 sources) beta2-Adrenergic Agonist Start: 06-21-2023 albuterol (2.5 MG/3ML) 0.083% nebulizer solution Indications: Chronic obstructive pulmonary disease, unspecified COPD type ([facility]) Take 3 mL (2.5 mg) [...] 12:00am Start: 01-17-2022 take 1 capsule by [facility] three times daily for cough benzonatate (TESSALON PERLE) 100 mg capsule take 1 capsule by mouth three times a day if needed for cough SWALLOW WHOLE 0 01/17/2022 Active Comment on above: take 1 capsule by [facility] three times a day if needed for [...] t ongue. omega-3 fatty acids-fish oil (One-Per-Day Clifton-3) 684-1,200 mg capsule (2 sources) omega-3 fatty acids-fish oil (One-Per-Day Clifton-3) 684-1,200 mg capsule Take as directed Active omega-3 fatty ac ids-fish oil (One-Per-Day Clifton-3) 684-1,200 mg capsule Take as directed 0 [...] mg tablet Indications: Coronary artery disease involving nulato coronary artery of nulato heart without angina pectoris , Mixed hyperlipidemia [...] mg by inhalation every eight hours Ipratropium [place] Discontinued 0.5 MG INHALATION Q8H April 26, [...] 0 Refills: 0 Ordered: 07-Sep-2022 DO Active Clifton 3 CAPS (2 sources) Clifton 3 CAPS MARLEN E DIRECTED. Quantity: 0 [...] [Coronary atherosclerosis of unspecified type of vessel, nulato or graft] Onset: 01-03-2023 03-23-2023 Chronic Disorders [...] aPTT Coag (PPP) [Time] 30.2 s 25.1-36.5 [facility] Comment on above: A hematocrit value g reater than 55% may lead to inaccurate results in coagulation testing. Patients having hematocrit values >55% require a special collection tube for coagulation studies. Please contact the laboratory at [phone] for redraw instructions. Alanine aminotransferase [En zymatic activity/volume] in Serum or PlasmaOrdered By: Jasper Martinez on 06-14-2023 ALT [Catalytic activity/Vol] 37 U/L 7-52 [facility] Albumin [Mass/volume] in Ser um or Plasma by Bromocresol green (BCG) dye binding methoOrdered By: Jasper Martinez on 06-14-2023 Albumin BCG dye [Mass/Vol] 4.1 g/dL 3.5-5.7 [facility] Alkaline phosphatase [Enzyma tic activity/volume] in Serum or PlasmaOrdered By: Jasper Martinez on 06-14-2023 ALP [Catalytic activity/Vol] 59 U/L 34-104 [facility] Aspartate aminotransferase [ Enzymatic activity/volume] in Serum or PlasmaOrdered By: Jasper Martinez on 06-14-2023 AST [Catalytic activity/Vol] 29 U/L 13-39 [facility] B-Type Natriuretic Peptideon 06-14-2023 Natriuretic peptide B (Bld) [Mass/Vol] 67.0 pg/mL Normal 5-100 [facility] Comment on above: Result Comment: PERF ORMED BY: [place] [address] PATHOLOGIST SHUTTLE CAR OPERATOR RAPHAEL RANGEL M.D. Performed By: #### C OVID19 FLU RSV, CEPHEID NEG #### [address] Basophils Auto (Bld) [#/Vol] Ordered By: Jasper Martinez on 06-14-2023 Basophils (Bld) [#/Vol] 0.0 10*3/uL 0.0-0.2 [facility] Basophils/100 WBC Auto (Bld) Ordered By: Jasper Martinez on 06-14-2023 Basophils/100 WBC (Bld) 0.6 % . [facility] Bilirubin.total [Mass/volume ] in Serum or PlasmaOrdered By: Jasper Martinez on 06-14-2023 Bilirubin [Mass/Vol] 0.4 mg/dL 0.3-1.0 [facility] COVID CepheidOrdered By: Asya Martinez on 06-14-2023 SARS-CoV-2 (COVID-19) Ab IA Ql Negative Negative [facility] Comment on above: This is a duplicate Cepheid Xpert Xpress CoV-2/Flu/RSV Plus RNA by RT-PCR result to be used for statistical tracking purpose only. SARS-CoV-2 (COVID-19) RNA VERONA+probe Ql (Unsp spec) [facility] COVID-19 / Flu A/B / RSV PCR [...] or Cepheid Disclaimer revoked sooner. PERFORMED BY: [place] [address] PATHOLOGIST SHUTTLE CAR OPERATOR RAPHAEL RANGEL M.D. Normal [facility] Comment on above: Performed By: #### C OVID19 FLU RSV, CEPHEID NEG #### [place] [id number] [facility] Calcium [Mass/volume] in Ser um or PlasmaOrdered By: Jasper Martinez on 06-14-2023 Calcium [Mass/Vol] 9.0 mg/dL 8.6-10.3 [facility] Carbon dioxide, total [Moles /volume] in Serum or PlasmaOrdered By: Jasper Martinez on 06-14-2023 CO2 [Moles/Vol] 23.4 mmol/L 21.0-31.0 [facility] Cepheid COVID PCR Negativeon 06-14-2023 SARS-CoV-2 (COVID-19) RNA VERONA+probe Ql (Unsp spec) Negative Normal Negative [facility] Comment on above: Result Comment: This is a duplicate Cepheid Xpert Xpress CoV-2/Flu/RSV Plus RNA by RT-PCR result to be used for statistical tracking purpose only. PERFORMED BY: [address] [address] PATHOLOGIST SHUTTLE CAR OPERATOR RAPHAEL RANGEL M.D. Performed By: #### C OVID19 FLU RSV, CEPHEID NEG #### [facility] [address] Chloride [Moles/volume] in S taylor or PlasmaOrdered By: Jasper Martinez on 06-14-2023 Chloride [Moles/Vol] 105 mmol/L 98-107 [facility] Complete Blood Count Auto Di ffon 06-14-2023 Basophils (Bld) [#/Vol] 0.0 10*3/uL Normal 0.0-0.2 [facility] Comment on above: Result Comment: PERF ORMED BY: [place] [address] PATHOLOGIST SHUTTLE CAR OPERATOR RAPHAEL RANGEL M.D. Performed By: #### B RACEBOOK WRITER, CK, MG, CBC, HS TROP, PTT, PT, CMP #### [address] Basophils/100 WBC (Bld) 0.6 % Normal . [facility] Comment on above: Performed By: #### B RACEBOOK WRITER, CK, MG, CBC, HS TROP, PTT, PT, CMP #### [address] Eosinophils (Bld) [#/Vol] 0.8 10*3/uL High 0.0-0.45 [facility] Comment on above: Performed By: #### B RACEBOOK WRITER, CK, MG, CBC, HS TROP, PTT, PT, CMP #### [address] Eosinophils/100 WBC (Bld) 9.6 % Normal . [facility] Comment on above: Performed By: #### B RACEBOOK WRITER, CK, MG, CBC, HS TROP, PTT, PT, CMP #### [address] Erythrocyte distribution width (RBC) [Ratio] 14.4 % Normal 12.0-14.8 [facility] Comment on above: Performed By: #### B RACEBOOK WRITER, CK, MG, CBC, HS TROP, PTT, PT, CMP #### [address] Hematocrit (Bld) [Volume fraction] 40.8 % Normal 38.8-50.0 [facility] Comment on above: Performed By: #### B RACEBOOK WRITER, CK, MG, CBC, HS TROP, PTT, PT, CMP #### [address] Hemoglobin (Bld) [Mass/Vol] 14.3 g/dL Normal 13.0-17.0 [facility] Comment on above: Performed By: #### B RACEBOOK WRITER, CK, MG, CBC, HS TROP, PTT, PT, CMP #### [address] Lymphocytes (Bld) [#/Vol] 1.5 10*3/uL Normal 1.00-4.8 [facility] Comment on above: Performed By: #### B RACEBOOK WRITER, CK, MG, CBC, HS TROP, PTT, PT, CMP #### [address] Lymphocytes/100 WBC (Bld) 18.5 % Normal . [facility] Comment on above: Performed By: #### B RACEBOOK WRITER, CK, MG, CBC, HS TROP, PTT, PT, CMP #### [address] MCH (RBC) [Entitic mass] 30.1 pg Normal 27.5-35.2 [facility] Comment on above: Performed By: #### B RACEBOOK WRITER, CK, MG, CBC, HS TROP, PTT, PT, CMP #### [address] MCV (RBC) [Entitic vol] 86.2 fL Normal 83.5-101 [facility] Comment on above: Performed By: #### B RACEBOOK WRITER, CK, MG, CBC, HS TROP, PTT, PT, CMP #### [address] Mean Corpuscular HGB Conc 34.9 g/dL Normal 32.5-35.6 [facility] Comment on above: Performed By: #### B RACEBOOK WRITER, CK, MG, CBC, HS TROP, PTT, PT, CMP #### [address] Monocytes (Bld) [#/Vol] 0.8 10*3/uL Normal 0.0-0.8 [facility] Comment on above: Performed By: #### B RACEBOOK WRITER, CK, MG, CBC, HS TROP, PTT, PT, CMP #### [address] Monocytes/100 WBC (Bld) 16.39 % Normal 0.00-20.00 [facility] Comment on above: Performed By: #### B RACEBOOK WRITER, CK, MG, CBC, HS TROP, PTT, PT, CMP #### [address] Monocytes/100 WBC (Bld) 10.1 % Normal . [facility] Comment on above: Performed By: #### B RACEBOOK WRITER, CK, MG, CBC, HS TROP, PTT, PT, CMP #### [address] Neutrophils (Bld) [#/Vol] 4.9 10*3/uL Normal 1.8-7.7 [facility] Comment on above: Performed By: #### B RACEBOOK WRITER, CK, MG, CBC, HS TROP, PTT, PT, CMP #### [address] Neutrophils/100 WBC (Bld) 61.2 % Normal . [facility] Comment on above: Performed By: #### B RACEBOOK WRITER, CK, MG, CBC, HS TROP, PTT, PT, CMP #### [address] NRBC% 0.1 /100{WBC} Normal 0-0.5 [facility] Comment on above: Performed By: #### B RACEBOOK WRITER, CK, MG, CBC, HS TROP, PTT, PT, CMP #### [address] Platelet mean volume (Bld) [Entitic vol] 8.4 fL Normal 6.6-10.1 [facility] Comment on above: Performed By: #### B RACEBOOK WRITER, CK, MG, CBC, HS TROP, PTT, PT, CMP #### [facility] [address] Platelets (Bld) [#/Vol] 181 10*3/uL Normal 150-450 [facility] Comment on above: Performed By: #### B RACEBOOK WRITER, CK, MG, CBC, HS TROP, PTT, PT, CMP #### [facility] [address] RBC (Bld) [#/Vol] 4.74 10*6/uL Normal 3.90-5.60 [facility] Comment on above: Performed By: #### B RACEBOOK WRITER, CK, MG, CBC, HS TROP, PTT, PT, CMP #### [address] WBC (Bld) [#/Vol] 8.1 10*3/uL Normal 4.1-10.5 [facility] Comment on above: Performed By: #### B RACEBOOK WRITER, CK, MG, CBC, HS TROP, PTT, PT, CMP #### [facility] [address] Comprehensive Metabolic Pane maria esther 06-14-2023 Albumin [Mass/Vol] 4.1 g/dL Normal 3.5-5.7 [facility] Comment on above: Performed By: #### B RACEBOOK WRITER, CK, MG, CBC, HS TROP, PTT, PT, CMP #### [facility] [address] Albumin/Globulin [Mass ratio] 1.6 {ratio} Normal [facility] Comment on above: Performed By: #### B RACEBOOK WRITER, CK, MG, CBC, HS TROP, PTT, PT, CMP #### [address] ALP [Catalytic activity/Vol] 59 U/L Normal 34-104 [facility] Comment on above: Performed By: #### B RACEBOOK WRITER, CK, MG, CBC, HS TROP, PTT, PT, CMP #### [facility] [address] ALT [Catalytic activity/Vol] 37 U/L Normal 7-52 [facility] Comment on above: Performed By: #### B RACEBOOK WRITER, CK, MG, CBC, HS TROP, PTT, PT, CMP #### [address] Anion gap [Moles/Vol] 11.5 mmol/L Normal 6.0-15.0 [facility] Comment on above: Performed By: #### B RACEBOOK WRITER, CK, MG, CBC, HS TROP, PTT, PT, CMP #### [address] AST [Catalytic activity/Vol] 29 U/L Normal 13-39 [facility] Comment on above: Performed By: #### B RACEBOOK WRITER, CK, MG, CBC, HS TROP, PTT, PT, CMP #### [address] Bilirubin [Mass/Vol] 0.4 mg/dL Normal 0.3-1.0 [facility] Comment on above: Performed By: #### B RACEBOOK WRITER, CK, MG, CBC, HS TROP, PTT, PT, CMP #### [address] Calcium [Mass/Vol] 9.0 mg/dL Normal 8.6-10.3 [facility] Comment on above: Performed By: #### B RACEBOOK WRITER, CK, MG, CBC, HS TROP, PTT, PT, CMP #### [address] Chloride [Moles/Vol] 105 mmol/L Normal 98-107 [facility] Comment on above: Performed By: #### B RACEBOOK WRITER, CK, MG, CBC, HS TROP, PTT, PT, CMP #### [address] CO2 [Moles/Vol] 23.4 mmol/L Normal 21.0-31.0 [facility] Comment on above: Performed By: #### B RACEBOOK WRITER, CK, MG, CBC, HS TROP, PTT, PT, CMP #### [facility] [address] Creatinine [Mass/Vol] 0.89 mg/dL Normal 0.70-1.30 [facility] Comment on above: Performed By: #### B RACEBOOK WRITER, CK, MG, CBC, HS TROP, PTT, PT, CMP #### [facility] [address] Creatinine Clr Calc Pharmacy 92.42 [facility] Comment on above: Performed By: #### B RACEBOOK WRITER, CK, MG, CBC, HS TROP, PTT, PT, CMP #### [facility] [address] GFR/1.73 sq M.predicted MDRD (S/P/Bld) [Vol rate/Area] mL/min/{1.73_m2} [facility] Comment on above: Performed By: #### B RACEBOOK WRITER, CK, MG, CBC, HS TROP, PTT, PT, CMP #### [address] Globulin (S) [Mass/Vol] 2.5 g/dL [facility] Comment on above: Performed By: #### B RACEBOOK WRITER, CK, MG, CBC, HS TROP, PTT, PT, CMP #### [address] Glucose [Mass/Vol] 144 mg/dL High 70-100 [facility] Comment on above: Result Comment: [facility] Glucose Reference Range is dependent on time and content of last meal. Glucose of more than 200 mg/dL in a nonstressed, ambulatory subject supports the diagnosis of Diabetes Mellitus. ADA recommended reference range Performed By: #### B RACEBOOK WRITER, CK, MG, CBC, HS TROP, PTT, PT, CMP #### [address] Potassium [Moles/Vol] 3.9 mmol/L Normal 3.5-5.1 [facility] Comment on above: Performed By: #### B RACEBOOK WRITER, CK, MG, CBC, HS TROP, PTT, PT, CMP #### [address] [place] [address] [place] Protein [Mass/Vol] 6.6 g/dL Normal 6.4-8.9 [facility] Comment on above: Performed By: #### B RACEBOOK WRITER, CK, MG, CBC, HS TROP, PTT, PT, CMP #### [facility] [address] Sodium [Moles/Vol] 136 mmol/L Normal 136-145 [facility] Comment on above: Performed By: #### B RACEBOOK WRITER, CK, MG, CBC, HS TROP, PTT, PT, CMP #### [facility] [address] Urea nitrogen [Mass/Vol] 12 mg/dL Normal 7-25 [facility] Comment on above: Performed By: #### B RACEBOOK WRITER, CK, MG, CBC, HS TROP, PTT, PT, CMP #### [facility] [address] Creatine Kinaseon 06-14-2023 CK [Catalytic activity/Vol] 185 U/L Normal 30-223 [facility] Comment on above: Performed By: #### C OVID19 FLU RSV, CEPHEID NEG #### [address] Creatine kinase [Enzymatic a ctivity/volume] in Serum or PlasmaOrdered By: Jasper Martinez on 06-14-2023 CK [Catalytic activity/Vol] 185 U/L 30-223 [facility] Creatinine [Mass/volume] in Serum or PlasmaOrdered By: Jasper Martinez on 06-14-2023 Creatinine [Mass/Vol] 0.89 mg/dL 0.70-1.30 [facility] ECG 12 lead ECGon 06-14-2023 ECG 12 lead ECG [facility] [place] [address] [place] [address] Electrocardiograph Report Signed Patient: Demarcus Panchal MR#: [id number] : 1955 Acct:[id number] Age/Sex: 68 / M ADM Date: 06/14/23 Loc: ER Room: Type: [facility] ER Attending Dr: Ordering Provider: Jasper [...] sinus rhythm Confirmed by Jasper MARTINEZ DO ([id number]) on 06/14/2023 2:25:14 PM Referred By: Electronically Signed By:Jasper MARTINEZ DO Transcribed By: MUS Signed By Jasper Martinez DO 0 06/14/23 1425 Normal [facility] Eosinophils Auto (Bld) [#/Vo l]Ordered By: Jasper Martinez on 06-14-2023 Eosinophils (Bld) [#/Vol] 0.8 10*3/uL 0.0-0.45 [facility] Eosinophils/100 WBC Auto (Bl d)Ordered By: Jasper Martinez on 06-14-2023 Eosinophils/100 WBC (Bld) 9.6 % . [facility] Erythrocyte distribution wid th Auto (RBC) [Ratio]Ordered By: Jasper Martinez on 06-14-2023 Erythrocyte distribution width (RBC) [Ratio] 14.4 % 12.0-14.8 [facility] Globulin Calc (S) [Mass/Vol] Ordered By: Jasper Martinez on 06-14-2023 Globulin (S) [Mass/Vol] 2.5 g/dL [facility] Glucose [Mass/volume] in Ser um or PlasmaOrdered By: Jasper Martinez on 06-14-2023 Glucose [Mass/Vol] 144 mg/dL 70-100 [facility] Comment on above: ADA recommended refe rence rangeRandom Glucose Reference Range is dependent on time and content of last meal. Glucose of more than 200 mg/dL in a nonstressed, ambulatory subject supports the diagnosis of Diabetes Mellitus. Hematocrit Auto (Bld) [Volum e fraction]Ordered By: Jasper Martinez on 06-14-2023 Hematocrit (Bld) [Volume fraction] 40.8 % 38.8-50.0 [facility] Hemoglobin [Mass/volume] in BloodOrdered By: Jasper Martinez on 06-14-2023 Hemoglobin (Bld) [Mass/Vol] 14.3 g/dL 13.0-17.0 [facility] INR in Platelet poor plasma by Coagulation assayOrdered By: Japser Martinez on 06-14-2023 INR Coag (PPP) [Relative time] 1.1 {INR} [facility] Comment on above: INR Therapeutic Rang e [...] RBC Auto (Bld) [#/Vol] 8.1 10*3/uL 4.1-10.5 [facility] Lymphocytes Auto (Bld) [#/Vo l]Ordered By: Jasper Martinez on 06-14-2023 Lymphocytes (Bld) [#/Vol] 1.5 10*3/uL 1.00-4.8 [facility] Lymphocytes/100 WBC Auto (Bl d)Ordered By: Jasper Martinez on 06-14-2023 Lymphocytes/100 WBC (Bld) 18.5 % . [facility] MCH Auto (RBC) [Entitic mass ]Ordered By: Jasper Martinez on 06-14-2023 MCH (RBC) [Entitic mass] 30.1 pg 27.5-35.2 [facility] MCHC Auto (RBC) [Mass/Vol]Or dered By: Jasper Martinez on 06-14-2023 MCHC (RBC) [Mass/Vol] 34.9 g/dL 32.5-35.6 [facility] MCV Auto (RBC) [Entitic vol] Ordered By: Jasper Martinez on 06-14-2023 MCV (RBC) [Entitic vol] 86.2 fL 83.5-101 [facility] Magnesiumon 06-14-2023 Magnesium [Mass/Vol] 2.0 mg/dL Normal 1.9-2.7 [facility] Comment on above: Result Comment: PERF ORMED BY: [facility] [address] [place] [address] PATHOLOGIST SHUTTLE CAR OPERATOR RAPHAEL RANGEL M.D. Performed By: #### B RACEBOOK WRITER, CK, MG, CBC, HS TROP, PTT, PT, CMP #### [facility] [address] [place] [id number] [facility] Magnesium [Mass/volume] in S taylor or PlasmaOrdered By: Jasper Martinez on 06-14-2023 Magnesium [Mass/Vol] 2.0 mg/dL 1.9-2.7 [facility] Monocyte distribution width [Entitic volume] in Blood by AutomatedOrdered By: Jasper Martinez on 06-14-2023 Monocyte distribution width Auto (Bld) [Entitic vol] 16.39 % 0.00-20.00 [facility] Monocytes Auto (Bld) [#/Vol] Ordered By: Jasper Martinez on 06-14-2023 Monocytes (Bld) [#/Vol] 0.8 10*3/uL 0.0-0.8 [facility] Monocytes/100 WBC Auto (Bld) Ordered By: Jasper Martinez on 06-14-2023 Monocytes/100 WBC (Bld) 10.1 % . [facility] Natriuretic peptide B [Mass/ Vol]Ordered By: Jasper Martinez on 06-14-2023 Natriuretic peptide B (Bld) [Mass/Vol] 67.0 pg/mL 5-100 [facility] Neutrophils Auto (Bld) [#/Vo l]Ordered By: Jasper Martinez on 06-14-2023 Neutrophils (Bld) [#/Vol] 4.9 10*3/uL 1.8-7.7 [facility] Neutrophils/100 WBC Auto (Bl d)Ordered By: Jasper Martinez on 06-14-2023 Neutrophils/100 WBC (Bld) 61.2 % . [facility] No Panel InformationOrdered By: Jasper Martinez on 06-14-2023 Estimated GFR (CKD-EPI) > 60.0 mL/Min [facility] Creatinine Clearance (Chem 92.42 [facility] Nucleated erythrocytes [Pres ence] in Blood by Automated countOrdered By: Jasper Martinez on 06-14-2023 Nucleated RBC Auto Ql (Bld) 0.1 /100{WBC} 0-0.5 [facility] Partial Thromboplastin Timeo n 06-14-2023 aPTT Coag (Bld) [Time] 30.2 s Normal 25.1-36.5 [facility] Comment on above: Result Comment: A he matocrit value greater than 55% may lead to inaccurate results in coagulation testing. Patients having hematocrit values >55% require a special collection tube for coagulation studies. Please contact the laboratory at [phone] for redraw instructions. PERFORMED BY: [place] [address] PATHOLOGIST SHUTTLE CAR OPERATOR RAPHAEL RANGEL M.D. Performed By: #### C OVID19 FLU RSV, CEPHEID NEG #### [address] Platelet mean volume Auto (B ld) [Entitic vol]Ordered By: Jasper Martinez on 06-14-2023 Platelet mean volume (Bld) [Entitic vol] 8.4 fL 6.6-10.1 [facility] Platelets Auto (Bld) [#/Vol] Ordered By: Jasper Martinez on 06-14-2023 Platelets (Bld) [#/Vol] 181 10*3/uL 150-450 [facility] Potassium [Moles/volume] in Serum or PlasmaOrdered By: Jasper Martinez on 06-14-2023 Potassium [Moles/Vol] 3.9 mmol/L 3.5-5.1 [facility] Protein [Mass/volume] in Ser um or PlasmaOrdered By: Jasper Martinez on 06-14-2023 Protein [Mass/Vol] 6.6 g/dL 6.4-8.9 [facility] Prothrombin Time INRon 06-14 INR Coag (PPP) [Relative time] 1.1 {INR} Normal [facility] Comment on above: Result Comment: INR Therapeutic [...] 3 - 4.5 Performed By: #### B RACEBOOK WRITER, CK, MG, CBC, HS TROP, PTT, PT, CMP #### [facility] [address] [place] [id number] [facility] PT Coag (PPP) [Time] 12.1 s Normal 9.0-12.9 [facility] Comment on above: Result Comment: A he matocrit value greater than 55% may lead to inaccurate results in coagulation testing. Patients having hematocrit values >55% require a special collection tube for coagulation studies. Please contact the laboratory at [phone] for redraw instructions. Performed By: #### B RACEBOOK WRITER, CK, MG, CBC, HS TROP, PTT, PT, CMP #### [facility] [address] [place] [id number] [facility] Prothrombin time (PT)Ordered By: Jasper Martinez on 06-14-2023 PT Coag (PPP) [Time] 12.1 s 9.0-12.9 [facility] Comment on above: A hematocrit value g reater than 55% may lead to inaccurate results in coagulation testing. Patients having hematocrit values >55% require a special collection tube for coagulation studies. Please contact the laboratory at [phone] for redraw instructions. RBC Auto (Bld) [#/Vol]Ordere d By: Jasper Martinez on 06-14-2023 RBC (Bld) [#/Vol] 4.74 10*6/uL 3.90-5.60 [facility] Serum or plasma albumin/glob ulin mass ratioOrdered By: Jasper Martinez on 06-14-2023 Albumin/Globulin [Mass ratio] 1.6 {ratio} [facility] Serum or plasma anion gap de terminationOrdered By: Jasper Martinez on 06-14-2023 Anion gap [Moles/Vol] 11.5 mmol/L 6.0-15.0 [facility] Sodium [Moles/volume] in Ser um or PlasmaOrdered By: Jasper Martinez on 06-14-2023 Sodium [Moles/Vol] 136 mmol/L 136-145 [facility] Troponin I High Sensitivityo n 06-14-2023 Troponin I High Sensitivity 26.8 pg/mL High 0.0-20.0 [facility] Comment on above: Result Comment: PERF ORMED BY: [place] [address] PATHOLOGIST SHUTTLE CAR OPERATOR RAPHAEL RANGEL M.D. Performed By: #### C OVID19 FLU RSV, CEPHEID NEG #### [facility] [address] Troponin I.cardiac [Mass/vol ume] in Serum or Plasma by Detection limit <= 0.01 ng/Ordered By: Jasper Martinez on 06-14-2023 Troponin I.cardiac DL <= 0.01 ng/mL [Mass/Vol] 26.8 pg/mL 0.0-20.0 [facility] Urea nitrogen [Mass/volume] in Serum or PlasmaOrdered By: Jasper Martinez on 06-14-2023 Urea nitrogen [Mass/Vol] 12 mg/dL 7-25 [facility] WBC Auto (Bld) [#/Vol]Ordere d By: Jasper Martinez on 06-14-2023 WBC (Bld) [#/Vol] 8.1 10*3/uL 4.1-10.5 [facility] XR chest 2V*on 06-14-2023 XR chest 2V* [facility] Main [place] [address] [place] [address] XRay Report Signed Patient: Demarcus Panchal MR#: [id number] 652 : 1955 Acct:[id number] Age/Sex: 68 / M ADM Date: 06/14/23 Loc: ER Room: Type: [facility] ER Attending Dr: Copies to: Jasper [...] Salvador Nguyễn M.D.06/14/2023 1:59 PM Dictation Location: [facility]- Transcribed By: [facility] 06/14/23 1359 Dictated By: Salvador Nguyễn DO 06/14/23 1354 Signed By: 06/14/23 1359 Normal [facility] Cardiac echo study Procedure on 03-20-2023 Ordered by an unspec ified provider. [facility] Alanine aminotransferase [En zymatic activity/volume] in Serum or PlasmaOrdered By: Sera Flower on 02-05-2023 ALT [Catalytic activity/Vol] 51 U/L 7-52 [facility] Albumin [Mass/volume] in Ser um or Plasma by Bromocresol green (BCG) dye binding methoOrdered By: Sera Flower on 02-05-2023 Albumin BCG dye [Mass/Vol] 4.4 g/dL 3.5-5.7 [facility] Alkaline phosphatase [Enzyma tic activity/volume] in Serum or PlasmaOrdered By: Sera Flower on 02-05-2023 ALP [Catalytic activity/Vol] 61 U/L 34-104 [facility] Aspartate aminotransferase [ Enzymatic activity/volume] in Serum or PlasmaOrdered By: Sera Flower on 02-05-2023 AST [Catalytic activity/Vol] 39 U/L 13-39 [facility] Bilirubin.total [Mass/volume ] in Serum or PlasmaOrdered By: Sera Flower on 02-05-2023 Bilirubin [Mass/Vol] 0.7 mg/dL 0.3-1.0 [facility] Calcium [Mass/volume] in Ser um or PlasmaOrdered By: Sera Flower on 02-05-2023 Calcium [Mass/Vol] 9.1 mg/dL 8.6-10.3 [facility] Carbon dioxide, total [Moles /volume] in Serum or PlasmaOrdered By: Sera Flower on 02-05-2023 CO2 [Moles/Vol] 28.0 mmol/L 21.0-31.0 [facility] Chloride [Moles/volume] in S taylor or PlasmaOrdered By: Sera Flower on 02-05-2023 Chloride [Moles/Vol] 103 mmol/L 98-107 [facility] Comprehensive Metabolic Pane maria esther 02-05-2023 Albumin [Mass/Vol] 4.4 g/dL Normal 3.5-5.7 [facility] Comment on above: Order Comment: PT IS FASTING Performed By: #### C MP #### [facility] [address] Albumin/Globulin [Mass ratio] 2.6 {ratio} Normal [facility] Comment on above: Order Comment: PT IS FASTING Performed By: #### C MP #### [facility] [address] ALP [Catalytic activity/Vol] 61 U/L Normal 34-104 [facility] Comment on above: Order Comment: PT IS FASTING Result Comment: PERF ORMED BY: [place] [address] PATHOLOGIST SHUTTLE CAR OPERATOR RAPHAEL RANGEL M.D. Performed By: #### C MP #### [facility] [address] ALT [Catalytic activity/Vol] 51 U/L Normal 7-52 [facility] Comment on above: Order Comment: PT IS FASTING Performed By: #### C MP #### [facility] [address] Anion gap [Moles/Vol] 11.4 mmol/L Normal 6.0-15.0 [facility] Comment on above: Order Comment: PT IS FASTING Performed By: #### C MP #### [facility] [address] AST [Catalytic activity/Vol] 39 U/L Normal 13-39 [facility] Comment on above: Order Comment: PT IS FASTING Performed By: #### C MP #### [facility] [address] [place] [id number] [facility] Bilirubin [Mass/Vol] 0.7 mg/dL Normal 0.3-1.0 [facility] Comment on above: Order Comment: PT IS FASTING Performed By: #### C MP #### [facility] [address] Calcium [Mass/Vol] 9.1 mg/dL Normal 8.6-10.3 [facility] Comment on above: Order Comment: PT IS FASTING Performed By: #### C MP #### [facility] [address] Chloride [Moles/Vol] 103 mmol/L Normal 98-107 [facility] Comment on above: Order Comment: PT IS FASTING Performed By: #### C MP #### [address] CO2 [Moles/Vol] 28.0 mmol/L Normal 21.0-31.0 [facility] Comment on above: Order Comment: PT IS FASTING Performed By: #### C MP #### [facility] [address] Creatinine [Mass/Vol] 1.00 mg/dL Normal 0.70-1.30 [facility] Comment on above: Order Comment: PT IS FASTING Performed By: #### C MP #### [facility] [address] [place] [address] [place] GFR/1.73 sq M.predicted MDRD (S/P/Bld) [Vol rate/Area] mL/min/{1.73_m2} [facility] Comment on above: Order Comment: PT IS FASTING Performed By: #### C MP #### [facility] [address] [place] [address] [place] Globulin (S) [Mass/Vol] 1.7 g/dL [facility] Comment on above: Order Comment: PT IS FASTING Performed By: #### C MP #### [facility] [address] [place] [address] [place] Glucose [Mass/Vol] 93 mg/dL Normal 70-100 [facility] Comment on above: Order Comment: PT IS FASTING Result Comment: [place] Glucose Reference Range is dependent on time and content of last meal. Glucose of more than 200 mg/dL in a nonstressed, ambulatory subject supports the diagnosis of Diabetes Mellitus. ADA recommended reference range Performed By: #### C MP #### [facility] [address] Potassium [Moles/Vol] 4.4 mmol/L Normal 3.5-5.1 [facility] Comment on above: Order Comment: PT IS FASTING Performed By: #### C MP #### [facility] [address] [place] [address] [place] Protein [Mass/Vol] 6.1 g/dL Low 6.4-8.9 [facility] Comment on above: Order Comment: PT IS FASTING Performed By: #### C MP #### [facility] [address] [place] [address] [place] Sodium [Moles/Vol] 138 mmol/L Normal 136-145 [facility] Comment on above: Order Comment: PT IS FASTING Performed By: #### C MP #### [facility] [address] [place] [address] [place] Urea nitrogen [Mass/Vol] 15 mg/dL Normal 7-25 [facility] Comment on above: Order Comment: PT IS FASTING Performed By: #### C MP #### [facility] [address] [place] [id number] [place] Creatinine [Mass/volume] in Serum or PlasmaOrdered By: Sera Flower on 02-05-2023 Creatinine [Mass/Vol] 1.00 mg/dL 0.70-1.30 [facility] ECH echo transthoracicon [facility] echo transthoracic [facility] Main [place] [address] [place] [address] Echocardiogram Signed Patient: Demarcus Panchal MR#: [id number] 652 : 1955 Acct:[id number] Age/Sex: 68 / M ADM Date: 02/05/23 Loc: Room: Type: [facility] Attending Dr: Rene Castro MD Ordering Provider: Rene Castro MD, [facility] Date of Service: 02/05/23/ E[facility] echo transthoracic: HTN, ISCHEMIC CARDIOMYOPATHY Copies to: Rene Castro MD, [facility] BSA: 2.2 m2 BP: 141/82 mmHg HR: 53 Reason For Study: HTN, ISCHEMIC CARDIOMYOPATHY History: HTN, HLD, Former Smoker, [place], 5 Stents, Asthma, Emphysema, COVID Interpretation Summary [...] 02/05/23 1042 Signed By: Rene Castro MD, [facility] 02/05/23 1207 Normal [facility] Globulin Calc (S) [Mass/Vol] Ordered By: Sera Flower on 02-05-2023 Globulin (S) [Mass/Vol] 1.7 g/dL [facility] Glucose [Mass/volume] in Ser um or PlasmaOrdered By: Sera Flower on 02-05-2023 Glucose [Mass/Vol] 93 mg/dL 70-100 [facility] Comment on above: ADA recommended refe rence rangeRandom Glucose Reference Range is dependent on time and content of last meal. Glucose of more than 200 mg/dL in a nonstressed, ambulatory subject supports the diagnosis of Diabetes Mellitus. No Panel InformationOrdered By: Sera Flower on 02-05-2023 Estimated GFR (CKD-EPI) > 60.0 mL/Min [facility]acy Creatinine Clearance (Chem N/A [facility] No Panel Informationon 02-05 [facility] daniel 250 DO Work Phone: Potassium [Moles/volume] in Serum or PlasmaOrdered By: Sera Flower on 02-05-2023 Potassium [Moles/Vol] 4.4 mmol/L 3.5-5.1 [facility] Protein [Mass/volume] in Ser um or PlasmaOrdered By: Sera Flower on 02-05-2023 Protein [Mass/Vol] 6.1 g/dL 6.4-8.9 [facility] Serum or plasma albumin/glob ulin mass ratioOrdered By: Sera Flower on 02-05-2023 Albumin/Globulin [Mass ratio] 2.6 {ratio} [facility] Serum or plasma anion gap de terminationOrdered By: Sera Flower on 02-05-2023 Anion gap [Moles/Vol] 11.4 mmol/L 6.0-15.0 [facility] Sodium [Moles/volume] in Ser um or PlasmaOrdered By: Sera Flower on 02-05-2023 Sodium [Moles/Vol] 138 mmol/L 136-145 [facility] Urea nitrogen [Mass/volume] in Serum or PlasmaOrdered By: Sera Flower on 02-05-2023 Urea nitrogen [Mass/Vol] 15 mg/dL 7- [facility] CARDIAC STRESS/REST INJE CTIONon 01-03-2023 [facility] CARDIAC STRESS/REST INJECTION Patient Name: DEMARCUS PANCHAL STUDY: MYOCARDIAL PERFUSION STRESS TEST WITH LEXISCAN Performing facility: [facility], [address] [place] [address], [address], [address] Provider: Rene Castro MD, [facility] PCP: Dr. Hunter Flower Supervising provider: Danna Davis DO, [facility] INDICATION: CAD; HTN Hyperlipidemia Ischemic cardiomyopathy HISTORY: Gender: M; Age: 68 y/o ; Height: 172.72 cm; Weight: 532.8240318 kg. CAD; High Cholesterol; HTN; Quit smoking 38 years ago. Cardiac catheterization on 2009. PTCA on 2009. COMPARISON: Previous nuclear testing completed at [facility]. ACCESSION NUMBER(S): [id number]; [id number]; [id number] ORDERING CLINICIAN: RENE CASTRO TECHNIQUE: TWO DAY [...] Electronically signed by: RENE CASTRO MD Normal [facility] No Panel Informationon 01-03 Normal -[facility] Heart-[employer] daniel 250 DO Work Phone: Office Visit [...] Weight Tips; Status:Complete - Retrospective Authorization; Done: [id number] Some eating tips that can help you lose weight.; Status:Complete - Retrospective Authorization; Done: [id number] Essential hypertension, Ischemic cardiomyopathy Renew: Carvedilol 6.25 MG Oral Tablet (Coreg); TAKE 1 TABLET TWICE DAILY WITH MEALS SocHx: Former smoker Stop: Losartan Potassium 25 MG Oral Tablet Tobacco Use Screening; Status:Complete; Done: [id number] Unlinked Stop: hydroCHLOROthiazide 25 MG Oral Tablet [...] emphasis on low-calorie diet Rene Castro MD, [facility] Surgical History Problems History of [...] No a (more content not included)... Normal [employer] Tobacco Screening.on Adult depression screening assessment No [facility]-Cardiol[facility] gy-Reading 250 DO Work Phone: Fall risk assessment a) No falls within the last year [facility]-Cardiol[facility] gy-Reading 250 DO Work Phone: Tobacco use status [facility] b) No MP-Cardiolo gy-Reading 250 DO Work Phone: MRI Soft Tissue [...] by Ethan Walsh on 07/16/2022 1246 Normal [facility] Reducing Machine Operator MRI Brain w/o + w/on 023 MRI [...] by Sean Trejo on 07/01/2022 0911 Normal [facility] Reducing Machine Operator Shaquille 06-21-2022 KALENN Telephone (INTMLN) -- KVNGDEMARCUS ([id number]) 1955 Date Time Provider Department 06/21/22 DEANDRA BENDER During your visit today, we recorded the following information about you: Delores Mccollum 06/21/2022 12:54 PM Signed [facility] called today. : 1955 Allergies: Codeine, Codeine-Guaifenesin, and Guaifenesin (home) [phone] (cell) Reason for call: Sasha F:[phone] Asking for the MRI orders and office notes to be faxed over to [facility]. Patient will be having them done there. Patient last appointment: Visit date not found The patients preferred pharmacy has been captured for this encounter? not asked Delores Mccollum Orquidea Ryan [facility] 06/21/2022 2:03 PM Signed Notes [...] Status:Closed by ORQUIDEA SIBLEY on 06/21/22 Normal [facility] XR Ribs w/ PA Chest Left*on [...] by Ethan Walsh on 03/13/2022 1254 Normal [facility] XR Chest 2 Views*on 01-18-20 22 [...] LOGAN on 01/17/2022 1243 Normal [facility] Specialist Tobacco Screening.on 022 Adult depression screening assessment No Merged with [facility] Heart-Sandu daniel 250 DO Work Phone: Fall risk assessment a) No falls within the last year Merged with [facility] daniel 250 DO Work Phone: Tobacco use status [facility] b) No Merged with [facility] Heart-[facility] daniel 250 DO Work Phone: [...] LOGAN on 08/04/2021 1346 Normal [facility] Specialist Complete Blood Count with Au to Diffon 07-29-2021 Basophils (Bld) [#/Vol] 0.05 10*3/uL Normal 0.00-0.20 [facility] Specialist Comment on above: Performed By: #### C MP, CBCAD #### [facility] [address] [place], [place] [id number] Basophils/100 WBC (Bld) 0.8 % Normal [facility] Specialist Comment on above: Performed By: #### C MP, CBCAD #### [facility] [address] [place], [place] [id number] Eosinophils (Bld) [#/Vol] 0.46 10*3/uL Normal 0.02-0.50 [facility] Specialist Comment on above: Performed By: #### C JOSE ANTONIO, CBCAD #### [facility] [address] [place], [place] [id number] Eosinophils/100 WBC (Bld) 7.7 % Normal [facility] Specialist Comment on above: Performed By: #### C JOSE ANTONIO, CBCAD #### [facility] [address] [place], [place] [id number] Erythrocyte distribution width (RBC) [Ratio] 13.3 % Normal 11.0-15.0 [facility] Specialist Comment on above: Performed By: #### C JOSE ANTONIO, CBCAD #### [facility] [address] [place], [place] [id number] Hematocrit (Bld) [Volume fraction] 42.2 % Normal 38.5-50.0 [facility] Specialist Comment on above: Performed By: #### C JOSE ANTONIO, CBCAD #### [facility] [address] [place], [place] [id number] Hemoglobin (Bld) [Mass/Vol] 14.5 g/dL Normal 13.0-17.1 [facility] Specialist Comment on above: Performed By: #### C MP, CBCAD #### [facility] [address] [place], [place] [id number] Lymphocytes (Bld) [#/Vol] 1.6 10*3/uL Normal 0.9-3.9 [facility] Specialist Comment on above: Performed By: #### C JOSE ANTONIO, CBCAD #### [facility] [address] [place], [place] [id number] Lymphocytes/100 WBC (Bld) 26.1 % Normal [facility] Comment on above: Performed By: #### C MP, CBCAD #### [facility] [address] [place], [place] [id number] MCH (RBC) [Entitic mass] 29.7 pg Normal 27.0-33.0 [facility] Comment on above: Performed By: #### C MP, CBCAD #### [facility] [address] [place], [place] [id number] MCHC (RBC) [Mass/Vol] 34.4 g/dL Normal 32.0-36.0 [facility] Comment on above: Performed By: #### C MP, CBCAD #### [facility] [address] [place], [place] [id number] MCV (RBC) [Entitic vol] 86 fL Normal 80-100 [facility] Comment on above: Performed By: #### C MP, CBCAD #### [facility] [address] [place], [place] [id number] Monocytes (Bld) [#/Vol] 0.9 10*3/uL Normal 0.2-0.9 [facility] Comment on above: Performed By: #### C MP, CBCAD #### [facility] [address] [place], [place] [id number] Monocytes/100 WBC (Bld) 14.6 % Normal [facility] Comment on above: Performed By: #### C MP, CBCAD #### [facility] [address] [place], [place] [id number] Neutrophils (Bld) [#/Vol] 3.0 10*3/uL Normal 1.5-7.8 [facility] Comment on above: Performed By: #### C MP, CBCAD #### [facility] [address] [place], [place] [id number] Neutrophils/100 WBC (Bld) 50.5 % Normal [facility] Specialist Comment on above: Performed By: #### C MP, CBCAD #### [facility] [address] [place], [place] [id number] Platelet mean volume (Bld) [Entitic vol] 10.90 fL Normal 7.50-12.50 [facility] Specialist Comment on above: Performed By: #### C MP, CBCAD #### [facility] [address] [place], [place] [id number] Platelets (Bld) [#/Vol] 166 10*3/uL Normal 140-400 [facility] Specialist Comment on above: Performed By: #### C MP, CBCAD #### [facility] [address] [place], [place] [id number] RBC (Bld) [#/Vol] 4.89 10*6/uL Normal 4.20-5.80 [facility] Specialist Comment on above: Performed By: #### C JOSE ANTONIO, CBCAD #### [facility] [address] [place], [place] [id number] RDW-SD 41.2 fL Normal 37.0-50.0 [facility] Specialist Comment on above: Performed By: #### C JOSE ANTONIO, CBCAD #### [facility] [address] [place], [place] [id number] WBC (Bld) [#/Vol] 5.9 10*3/uL Normal 3.8-11.0 [facility] Specialist Comment on above: Performed By: #### C JOSE ANTONIO, CBCAD #### [facility] [address] [place], [place] [id number] Comprehensive Metabolic Pane [facility] 07-29-2021 Albumin [Mass/Vol] 4.6 g/dL Normal 3.6-5.1 [facility] Specialist Comment on above: Performed By: #### C MP, CBCAD #### [facility] [address] [place], [place] [id number] Albumin/Globulin [Mass ratio] 2.7 {ratio} High 1.0-2.5 [facility] Specialist Comment on above: Performed By: #### C MP, CBCAD #### [facility] [address] [place], [place] [id number] ALP [Catalytic activity/Vol] 74 U/L Normal 40-129 [facility] Specialist Comment on above: Performed By: #### C JOSE ANTONIO, CBCAD #### [facility] [address] [place], [place] [id number] ALT [Catalytic activity/Vol] 55 U/L High 9-46 [facility] Comment on above: Result Comment: 04/27 Female reference range changed. Performed By: #### C MP, CBCAD #### [facility] [address] [place], [place] [id number] Anion gap [Moles/Vol] 16 mmol/L Normal 12-20 [facility] Specialist Comment on above: Result Comment: Effe ctive 06/02/2019 reference range changed. Performed By: #### C MP, CBCAD #### [facility] [address] [place], [place] [id number] AST [Catalytic activity/Vol] 39 U/L Normal 10-40 [facility] Comment on above: Performed By: #### C MP, CBCAD #### [facility] [address] [place], [place] [id number] BUN/CREA 13 Ratio Normal 6-22 [facility] Comment on above: Performed By: #### C MP, CBCAD #### [facility] [address] [place], [place] [id number] Calcium [Mass/Vol] 9.0 mg/dL Normal 8.6-10.2 [facility] Comment on above: Performed By: #### C MP, CBCAD #### [facility] [address] [place], [place] [id number] Chloride [Moles/Vol] 107 mmol/L Normal 98-107 [facility] Comment on above: Performed By: #### C MP, CBCAD #### [facility] [address] [place], [place] [id number] CO2 [Moles/Vol] 20 mmol/L Normal 20-31 [facility] Comment on above: Performed By: #### C MP, CBCAD #### [facility] [address] [place], [place] [id number] Creatinine [Mass/Vol] 1.0 mg/dL Normal 0.7-1.4 [facility] Comment on above: Performed By: #### C MP, CBCAD #### [facility] [address] [place], [place] [id number] eGFRAA 94 mL/min/1.73m2 Normal >60 [facility] Specialist Comment on above: Performed By: #### C MP, CBCAD #### [facility] [address] [place], [place] [id number] eGFRNAA 78 mL/min/1.73m2 Normal >60 [facility] Specialist Comment on above: Performed By: #### C MP, CBCAD #### [facility] [address] [place], [place] [id number] Globulin (S) [Mass/Vol] 1.7 g/dL Low 1.9-3.7 [facility] Specialist Comment on above: Performed By: #### C MP, CBCAD #### [facility] [address] [place], [place] [id number] Glucose [Mass/Vol] 121 mg/dL High 65-99 [facility] Reducing Machine Operator Comment on above: Result Comment: For FASTING Glucose --- ADA reference ranges: Normal 65-99 mg/dl Prediabetes 100-125 Diabetes >/= 126 Performed By: #### C MP, CBCAD #### [facility] [address] [place], [place] [id number] Potassium [Moles/Vol] 4.2 mmol/L Normal 3.5-5.5 Nor [facility] Comment on above: Performed By: #### C MP, CBCAD #### [facility] [address] [place], [place] [id number] Protein [Mass/Vol] 6.3 g/dL Normal 6.1-8.1 [facility] Reducing Machine Operator Comment on above: Performed By: #### C MP, CBCAD #### [facility] [address] [place], [place] [id number] Sodium [Moles/Vol] 139 mmol/L Normal 135-146 [facility] Reducing Machine Operator Comment on above: Performed By: #### C MP, CBCAD #### [facility] [address] [place], [place] [id number] TBIL <0.3 Normal [facility] Specialist Comment on above: Performed By: #### C MP, CBCAD #### [facility] [address] [place], [place] [id number] Urea nitrogen [Mass/Vol] 12 mg/dL Normal 7-25 [facility] Reducing Machine Operator Comment on above: Performed By: #### C MP, CBCAD #### [facility] [address] [place], [place] [id number] Microalbumin (with Creat)on 07-29-2021 mALB <1.2 Low [facility] Reducing Machine Operator Comment on above: Result Comment: Unab le to calculate mALB/Crea ratio, mALB is <1.2 mg/dL mALB reference range not established. Performed By: #### m ALBC #### [facility] [address] [place], [place] [id number] UCREA 85 mg/dL Normal 39-259 [facility] Reducing Machine Operator Comment on above: Performed By: #### m ALBC #### [facility] [address], [place] [id number] Prostatic Specific Antigen, Totalon 07-29-2021 TPSA 2.330 ng/mL Normal <4.000 [facility] Reducing Machine Operator Comment on above: Result Comment: PSA Test Method: ECLIA/Brandi e 601 Performed By: #### P SA #### [facility] [address], [place] [id number] Q - URINALYSIS,COMPLETEon Appearance (U) CLEAR Normal CLEAR [facility] Reducing Machine Operator Comment on above: Order Comment: [facility] performed at: [facility], [address] , [address] [place] [address], [phone], Slack Line Yarder: Rafi Agustin MD [facility] Collection Date/Time: [facility] Results Received Date/Time: [facility] Reported Date/Time: Performed By: #### 3 4F #### [facility] Default [address] [place] [address] BACTERIA NONE SEEN Normal NONE SEEN [facility] Reducing Machine Operator Comment on above: Order Comment: [facility] performed at: [facility], [address], [address] [place] [address], [phone], Slack Line Yarder: Rafi Agustin MD [facility] Collection Date/Time: [facility] Results Received Date/Time: [facility] Reported Date/Time: Performed By: #### 3 4F #### [facility] Default [address] [place] [address] Bilirubin Ql (U) Negative Normal NEGATIVE [facility] Reducing Machine Operator Comment on above: Order Comment: [facility] performed at: Managed by Q, [facility], [address] , [address] [place] [address], [address] [place] [address], Slack Line Yarder: Rafi Agustin MD [facility] Collection Date/Time: [facility] Results Received Date/Time: [facility] Reported Date/Time: Performed By: #### 3 4F #### [facility] Default [address] [place] [address] Color (U) YELLOW Normal YELLOW [facility] Reducing Machine Operator Comment on above: Order Comment: [facility] performed at: [facility], [address] , [address] [place] [address], [address] [place] [address], Slack Line Yarder: Rafi Agustin MD [facility] Collection Date/Time: [facility] Results Received Date/Time: [facility] Reported Date/Time: Performed By: #### 3 4F #### [facility] Default [address] [place] [address] Glucose Ql (U) Negative Normal NEGATIVE [facility] Reducing Machine Operator Comment on above: Order Comment: [facility] performed at: Managed by Q, [facility], [address] , [address] [place] [address], [address] [place] [address], Slack Line Yarder: Rafi Agustin MD [facility] Collection Date/Time: [facility] Results Received Date/Time: [facility] Reported Date/Time: Performed By: #### 3 4F #### [facility] Default [address] [place] [address] HYALINE CAST NONE SEEN Normal NONE SEEN [facility] Reducing Machine Operator Comment on above: Order Comment: [facility] performed at: Managed by Q, [facility], [address] , [address] [place] [address], [address] [place] [address], Slack Line Yarder: Rafi Agustin MD [facility] Collection Date/Time: [facility] Results Received Date/Time: [facility] Reported Date/Time: Performed By: #### 3 4F #### [facility] Default [address] [place] [address] Ketones Ql (U) Negative Normal NEGATIVE [facility] Specialist Comment on above: Order Comment: [facility] performed at: Managed by Q, [facility], [address] [facility], [address] [place] [address], [address] [place] [address], Slack Line Yarder: Rafi Agustin MD [facility] Collection Date/Time: [facility] Results Received Date/Time: [facility] Reported Date/Time: Performed By: #### 3 4F #### [facility] Default [address] [place] [address] Leukocyte esterase Test strip Ql (U) Negative Normal NEGATIVE [facility] Reducing Machine Operator Comment on above: Order Comment: [facility] performed at: Managed by Q, [facility], [address] [facility], [address] [place] [address], [address] [place] [address], Slack Line Yarder: Rafi Agustin MD [facility] Collection Date/Time: [facility] Results Received Date/Time: [facility] Reported Date/Time: Performed By: #### 3 4F #### [facility] Default [address] [place] [address] Nitrite Ql (U) Negative Normal NEGATIVE [facility] Reducing Machine Operator Comment on above: Order Comment: [facility] performed at: Managed by Q, [facility], [address] [facility], [address] [place] [address], [address] [place] [address], Slack Line Yarder: Rafi Agustin MD [facility] Collection Date/Time: [facility] Results Received Date/Time: [facility] Reported Date/Time: Performed By: #### 3 4F #### [facility] Default [address] [place] [address] OCCULT BLOOD Negative Normal NEGATIVE [facility] Reducing Machine Operator Comment on above: Order Comment: [facility] performed at: Q, [facility], [address] [facility], [address] [place] [address], [address] [place] [address], Slack Line Yarder: Rafi Agustin MD [facility] Collection Date/Time: [facility] Results Received Date/Time: [facility] Reported Date/Time: Performed By: #### 3 4F #### [facility] Default [address] [place] [address] pH (U) 6.5 [pH] Normal 5.0-8.0 [facility] Reducing Machine Operator Comment on above: Order Comment: [facility] performed at: QPT, [facility], [address] [facility], [address] [place] [address], [address] [place] [address], Slack Line Yarder: Rafi Agustin MD [facility] Collection Date/Time: [facility] Results Received Date/Time: [facility] Reported Date/Time: Performed By: #### 3 4F #### [facility] Default [address] [place] [address] Protein Ql (U) Negative Normal NEGATIVE [facility] Reducing Machine Operator Comment on above: Order Comment: [facility] performed at: Q, [facility], [address] [facility], [address] [place] [address], [address] [place] [address], Slack Line Yarder: Rafi Agustin MD [facility] Collection Date/Time: [facility] Results Received Date/Time: [facility] Reported Date/Time: Performed By: #### 3 4F #### [facility] Default [address] [place] [address] RBC NONE SEEN Normal < OR = 2 [facility] Reducing Machine Operator Comment on above: Order Comment: [facility] performed at: Q, [facility], [address] [facility], [address] [place] [address], [address] [place] [address], Slack Line Yarder: Rafi Agustin MD [facility] Date/Time: [facility] Results Received Date/Time: [facility] Reported Date/Time: Performed By: #### 3 4F #### [facility] Default [address] [place] [address] Specific gravity (U) [Rel density] 1.012 Normal 1.001-1.035 [facility] Specialist Comment on above: Order Comment: [facility] performed at: Managed by Q, [facility], [address] [facility], [address] [place] [address], [address] [place] [address], Slack Line Yarder: Rafi Agustin MD [facility] Date/Time: [facility] Results Received Date/Time: [facility] Reported Date/Time: Performed By: #### 3 4F #### [facility] Default [address] [place] [address] SQUAMOUS EPITHELIAL CELLS NONE SEEN Normal < OR = 5 [facility] Specialist Comment on above: Order Comment: [facility] performed at: Managed by Q, [facility], [address] [facility], [address] [place] [address], [address] [place] [address], Slack Line Yarder: Rafi Agustin MD [facility] Collection Date/Time: [facility] Results Received Date/Time: [facility] Reported Date/Time: Performed By: #### 3 4F #### [facility] Default [address] [place] [address] WBC NONE SEEN Normal < OR = 5 [facility] Specialist Comment on above: Order Comment: [facility] performed at: Managed by Q, [facility], [address] [facility], [address] [place] [address], [address] [place] [address], Slack Line Yarder: Rafi Agustin MD [facility] Collection Date/Time: [facility] Results Received Date/Time: [facility] Reported Date/Time: Performed By: #### 3 4F #### [facility] Default [address] [place] [address] No Panel Information [facility] Vital Signs Date Time Vital Sign Value Performing Clinician Facility 10-18-2023 09:25-0400 Body height 172.7 cm Rene Castro MD Work Phone: [facility] 10-18-2023 09:25-0400 Body mass index (BMI) [Ratio] 36.31 kg/m2 Rene Castro MD Work Phone: [facility] 10-18-2023 09:25-0400 Body weight 108.32 kg Rene Castro MD Work Phone: [facility] 10-18-2023 09:25-0400 Diastolic blood pressure 76 mm[Hg] Rene Castro MD Work Phone: [facility] 10-18-2023 09:25-0400 Heart rate 68 /min Rene Castro MD Work Phone: [facility] 10-18-2023 09:25-0400 Systolic blood pressure 120 mm[Hg] Rene Castro MD Work Phone: [facility] 06-30-2023 10:23-0500 Body mass index (BMI) [Ratio] 35.28 kg/m2 Hosea Sifuentes DO Work Phone: [facility] 06-30-2023 10:23-0500 Body temperature 97.81 [degF] Hosea Sifuentes DO Work Phone: [facility] 06-30-2023 10:23-0500 Body weight 105.23 kg Hosea Sifuentes DO Work Phone: [facility] 06-30-2023 10:23-0500 Diastolic blood pressure 82 mm[Hg] Hosea Sifuentes DO Work Phone: [facility] 06-30-2023 10:23-0500 Heart rate 86 /min Hosea Sifuentes DO Work Phone: [facility] 06-30-2023 10:23-0500 Respiratory rate 18 /min Hosea Sifuentes DO Work Phone: [facility] 06-30-2023 10:23-0500 SaO2% (BldA) [Mass fraction] 94 % Hosea Sifuentes DO Work Phone: [facility] 06-30-2023 10:23-0500 Systolic blood pressure 138 mm[Hg] Hosea Sifuentes DO Work Phone: [facility] 06-14-2023 14:25-0500 Body temperature 97.7 [degF] MD Sera Flower Work Phone: [facility] 06-14-2023 14:25-0500 Diastolic blood pressure 74 mm[Hg] MD Sera Flower Work Phone: [facility] 06-14-2023 14:25-0500 Heart rate 78 /min MD Sera Flower Work Phone: [facility] 06-14-2023 14:25-0500 Respiratory rate 20 /min MD Sera Flower Work Phone: [facility] 06-14-2023 14:25-0500 SaO2% (BldA) [Mass fraction] 95 % MD Sera Flower Work Phone: [facility] 06-14-2023 14:25-0500 Systolic blood pressure 155 mm[Hg] MD Sera Flower Work Phone: [facility] 06-14-2023 11:48-0500 Body height 172.72 cm MD Sera Flower Work Phone: [facility] 06-14-2023 11:48-0500 Body weight 108.9 kg MD Sera Flower Work Phone: [facility] 03-23-2023 09:34-0400 Body height 172.7 cm Rene Castro MD Work Phone: [facility] 03-23-2023 09:34-0400 Body mass index (BMI) [Ratio] 35.12 kg/m2 Rene Castro MD Work Phone: [facility] 03-23-2023 09:34-0400 Body weight 104.78 kg Rene Castro MD Work Phone: [facility] 03-23-2023 09:34-0400 Diastolic blood pressure 72 mm[Hg] Rene Castro MD Work Phone: [facility] 03-23-2023 09:34-0400 Heart rate 60 /min Rene Castro MD Work Phone: [facility] 03-23-2023 09:34-0400 Systolic blood pressure 128 mm[Hg] Rene Castro MD Work Phone: [facility] 09-07-2022 11:31-0400 Body height 172.72 cm Sera Flower Work Phone: II-Meztcfzeio-Szmfj daniel 250 DO Work Phone: 09-07-2022 11:31-0400 Body mass index (BMI) [Ratio] 36.8 kg/m2 Sera Flower Work Phone: AR-Roznxfjrfd-Valho daniel 250 DO Work Phone: 09-07-2022 11:31-0400 Body surface area Derived from formula 2.22 m2 Sera Flower Work Phone: JF-Bgkxvyegjo-Diyol daniel 250 DO Work Phone: 09-07-2022 11:31-0400 Body weight 109.77 kg Sera Flower Work Phone: JV-Hfpylhasae-Cxjdl daniel 250 DO Work Phone: 09-07-2022 11:31-0400 Diastolic blood pressure 68 mm[Hg] Sera Flower Work Phone: QM-Yanmyrjxnz-Hsjhi daniel 250 DO Work Phone: 09-07-2022 11:31-0400 Heart rate 76 /min Sera Flower Work Phone: YD-Cynlqcdtvp-Rkrwb daniel 250 DO Work Phone: 09-07-2022 11:31-0400 Systolic blood pressure 124 mm[Hg] Sera Flower Work Phone: VN-Muxoyexkkj-Iratb daniel 250 DO Work Phone: 09-05-2021 14:04-0400 Body height 172.72 cm Sera Flower Work Phone: [facility] 250 DO Work Phone: 09-05-2021 14:04-0400 Body mass index (BMI) [Ratio] 36.49 kg/m2 Sera Flower Work Phone: [facility] 250 DO Work Phone: 09-05-2021 14:04-0400 Body surface area Derived from formula 2.21 m2 Sera Flower Work Phone: [facility] 250 DO Work Phone: 09-05-2021 14:04-0400 Body weight 108.86 kg Sera Flower Work Phone: [facility] 250 DO Work Phone: 09-05-2021 14:04-0400 Diastolic blood pressure 82 mm[Hg] Sera Flower Work Phone: [facility] 250 DO Work Phone: 09-05-2021 14:04-0400 Heart rate 70 /min Sera Flower Work Phone: [facility] 250 DO Work Phone: 09-05-2021 14:04-0400 Systolic blood pressure 132 mm[Hg] Sera Flower Work Phone: [facility] 250 DO Work Phone: Encounters Encounter Date Encounter Type Care Provider Facility Start: 2024 End: 2024 ambulatory BENJY ALAS Not Available Start: 10-18-2023 End: 10-18-2023 Office outpatient visit 25 minutes Rene Castro MD Work Phone: [facility] Comment on above: Coronary artery dise ase involving nulato coronary artery of nulato heart without angina pectoris (Primary Dx); Essential hypertension; Mixed hyperlipidemia; Ischemic cardiomyopathy; Status post coronary artery stent placement; Class 2 obesity with body mass index (BMI) of 35.0 to 35.9 in adult, unspecified obesity type, unspecified whether serious comorbidity present; Former smoker Start: 10-18-2023 End: 10-18-2023 ambulatory RENE Porter [facility] Start: 09-20-2023 End: 09-20-2023 ambulatory SERA FLOWER Not Available Start: 07-30-2023 End: 07-30-2023 ambulatory SERA FLOWER Not Available Start: 06-30-2023 End: 06-30-2023 ambulatory HOSEA SIFUENTES Not Available Start: 06-30-2023 End: 06-30-2023 Office outpatient visit 25 minutes Hosea Sifuentes DO Work Phone: [facility] Comment on above: Acute exacerbation o f chronic obstructive pulmonary disease (CMS/HCC) (Primary Dx) Start: 06-27-2023 End: 06-27-2023 ambulatory SERA FLOWER Not Available Start: 06-14-2023 End: 06-14-2023 Emergency department patient visit Jasper Martinez Facility:[facility] Start: 06-14-2023 End: 06-14-2023 Emergency department patient visit MD Sera Flower Work Phone: [facility] Work Phone: Start: 06-14-2023 End: 06-14-2023 ambulatory RENZO WEAVER Not Available Start: 05-19-2023 End: 05-19-2023 ambulatory BRITTANY FIGUEROA Not Available Start: 03-23-2023 End: 03-23-2023 Office outpatient visit 25 minutes Rene Castro MD Work Phone: [facility] Comment on above: Coronary artery dise ase involving nulato coronary artery of nulato heart without angina pectoris; Essential hypertension; Mixed hyperlipidemia; Ischemic cardiomyopathy; Status post coronary artery stent placement; Class 2 obesity with body mass index (BMI) of 35.0 to 35.9 in adult, unspecified obesity type, unspecified whether serious comorbidity present Start: 03-23-2023 End: 03-23-2023 ambulatory [facility] Ambulatory Start: 02-06-2023 Other Sera Flower Work Phone: [facility] 250 DO Work Phone: Start: 02-05-2023 End: 02-05-2023 ambulatory [facility] Facility:[facility] Start: 02-05-2023 End: 02-05-2023 ambulatory MD Sera Flower Work Phone: [facility] Work Phone: Start: 02-05-2023 End: 02-05-2023 Patient encounter procedure MD Sera Flower Work Phone: [facility] Work Phone: Start: 02-05-[address] Sera Flower Facility:[id number] Start: 01-30-2023 AUDIT Sera Flower Work Phone: [facility] 600 DO Work Phone: Start: 01-15-2023 Other Sera Flower Work Phone: [facility] 250 DO Work Phone: Start: 01-12-2023 Chart Update Sera Flower Work Phone: [facility] 250 DO Work Phone: Start: 01-04-[address] Sera Flower Facility:[id number] Start: 01-03-[address] Sera Flower Facility:[id number] Start: 11-14-2022 End: 11-14-2022 ambulatory DEANDRA BENDER Facility:[facility] Start: 11-14-2022 End: 11-14-2022 Patient encounter procedure Deandra Bender MD Work Phone: Ophthalmology Comment on above: Clonic hemifacial sp asm, right (Primary Dx) Start: 09-07-2022 Office outpatient vi sit 25 minutes Sera Flower Work Phone: [facility]Hrrl[facility]ux 250 DO Work Phone: Start: 09-07-2022 ambulatory Rene Castro Facility : Start: 08-08-2022 End: 08-08-2022 ambulatory DEANDRA BENDER Facility:[facility] Start: 08-08-2022 End: 08-08-2022 Patient encounter procedure Deandra Bender MD Work Phone: Ophthalmology Comment on above: Clonic hemifacial sp asm, right (Primary Dx) Start: 06-21-2022 Telephone encounter Deandra Bender MD Work Phone: [facility] [place] Comment on above: Orders Start: 06-21-2022 End: 06-21-2022 ambulatory DEANDRA BENDER Facility:[facility] Start: 06-21-2022 End: 06-21-2022 Patient encounter procedure Deandra Bender MD Work Phone: Ophthalmology Comment on above: Clonic hemifacial sp asm, right (Primary Dx); Paralytic strabismus; Jada's syndrome Start: 05-01-2022 End: 05-01-2022 ambulatory MAU RANDLE Facility:[facility] Start: 05-01-2022 End: 05-01-2022 Patient encounter procedure Mau Randle OD Work Phone: Ophthalmology Comment on above: Eyelid myokymia (Velma maren Dx); Dry eye syndrome of both eyes; Hyperopia of both eyes with astigmatism and presbyopia Start: 09-05-2021 Office outpatient vi sit 25 minutes Sera Flower Work Phone: [facility] 250 DO Work Phone: Procedures [...] WALKER CASTRO Start: 03-23-2023 Lipid panel [facility] Start: 03-20-2023 Echocardiography [facility] Start: 03-20-2023 Echocardiography Generic Provider Scanning Start: 02-13-2023 History of placement of stent for coronary artery disease Status post coronary artery stent placement Rene Castro MD Work Phone: Start: 11-14-2022 [facility] innervated facial nrv unil Deandra Bender MD Work Phone: Start: 08-08-2022 [facility] un[facility] 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 Work Phone: Start: 07-28-2019 Colonoscopy Hosea Sifuentes DO Work Phone: History of placement of stent for coronary artery disease Status post coronary artery stent placement Sera Flower Work Phone: History of placement of stent for coronary artery disease Status post coronary artery stent placement eRne Castro MD Work Phone: History of placement [...] 07-27-2029 Screening for malignant neoplasm of colon [facility] Start: 09-13-2028 Lipid panel Lipid Panel [facility] Start: 08-11-2027 DTaP/Tdap/Td Vaccines (2 - Td or Tdap) DTaP/Tdap/Td Vaccines (2 - Td or Tdap) [facility] Start: 05-15-2024 End: 05-15-2024 Patient encounter procedure 05/15/2024 9:10 AM EST Office Visit [facility] [address] [facility] [address] [place] [address] Rene Castro MD [address] [facility] [address] [place] [address] [facility] Start: 03-20-2024 Echocardiography Echocardiogram [facility] Start: 01-27-2024 Influenza vaccination Influenza Vaccine (Season Ended) [facility] Start: 10-18-2023 End: 10-18-2023 Patient encounter procedure 10/18/2023 9:30 AM EDT Office Visit [place] [id number] [facility] [address] [place] [address] Rene Castro MD [address] [facility] [address] [place] [address] [facility] Start: 09-20-2023 End: 09-20-2023 Patient encounter procedure 09/20/2023 1:00 PM EDT Office Visit [facility] [address] [place] [id number] Sera Flower MD [address] [place] [address] [facility] Start: 03-23-2023 End: 03-23-2024 Alanine aminotransferase [Enzymatic activity/volume] in Serum or Plasma by With P-5'-P Alanine Aminotransferase Lab Routine Coronary artery disease involving nulato coronary artery of nulato heart without angina pectoris Essential hypertension Mixed hyperlipidemia Ischemic cardiomyopathy Status post coronary artery stent placement Class 2 obesity with body mass index (BMI) of 35.0 to 35.9 in adult, unspecified obesity type, unspecified whether serious comorbidity present Expected: 03/23/2023 (Approximate), Expires: 03/23/2024 [facility] Work Phone: Comment on above: Expected: 03/23/2023 (Approximate), Expi res: 03/23/2024 Start: 03-23-2023 End: 03-23-2024 Aspartate aminotransferase [Enzymatic activity/volume] in Serum or Plasma by With P-5'-P Aspartate Aminotransferase Lab Routine Coronary artery disease involving nulato coronary artery of nulato heart without angina pectoris Essential hypertension Mixed hyperlipidemia Ischemic cardiomyopathy Status post coronary artery stent placement Class 2 obesity with body mass index (BMI) of 35.0 to 35.9 in adult, unspecified obesity type, unspecified whether serious comorbidity present Expected: 03/23/2023 (Approximate), Expires: 03/23/2024 [facility] Work Phone: Comment on above: Expected: 03/23/2023 (Approximate), Expi res: 03/23/2024 Start: 03-23-2023 End: 03-23-2024 Basic metabolic 2000 panel - Serum or Plasma Basic Metabolic Panel Lab Routine Coronary artery disease involving nulato coronary artery of nulato heart without angina pectoris Essential hypertension Mixed hyperlipidemia Ischemic cardiomyopathy Status post coronary artery stent placement Class 2 obesity with body mass index (BMI) of 35.0 to 35.9 in adult, unspecified obesity type, unspecified whether serious comorbidity present Expected: 03/23/2023 (Approximate), Expires: 03/23/2024 [facility] Work Phone: Comment on above: Expected: 03/23/2023 (Approximate), Expi res: 03/23/2024 Start: 03-23-2023 End: 03-23-2024 CBC panel - Blood by Automated count CBC Lab Routine Coronary artery disease involving nulato coronary artery of nulato heart without angina pectoris Essential hypertension Mixed [...] Panel Lab Routine Coronary artery disease involving nulato coronary artery of nulato heart without angina pectoris Essential hypertension Mixed hyperlipidemia Ischemic cardiomyopathy Status post coronary artery stent placement Class 2 obesity with body mass index (BMI) of 35.0 to 35.9 in adult, unspecified obesity type, unspecified whether serious comorbidity present Expected: 03/23/2023 (Approximate), Expires: 03/23/2024 [facility] Work Phone: Comment on above: Expected: 03/23/2023 (Approximate), Expi res: 03/23/2024 Start: 03-15-2023 FUV, Provider: Rene Castro, Status: Pen, Time: 9:20 AM FUV, Provider: Rene Castro, Status: Pen, Time: 9:20 AM [facility] 250 DO Work Phone: Start: 01-26-2023 COVID-19 Vaccine ( season) COVID-19 Vaccine ( season) [facility] Start: 01-26-2023 Influenza vaccination [facility] Start: 09-07-2022 FUV, Provider: Rene Castro, Status: Pen, Time: 8:30 AM FUV, Provider: Rene Castro, Status: Pen, Time: 8:30 AM [facility] [facility] Work Phone: Start: 05-28-2022 ADVANCE DIRECTIVE DISCUSSION ADVANCE DIRECTIVE DISCUSSION [facility] Start: 05-28-2022 DEPRESSION ASSESSMENT DEPRESSION ASSESSMENT [facility] Start: 01-26-2022 Influenza vaccination INFLUENZA (#1) [facility] Start: 05-28-2021 ADVANCE DIRECTIVE DISCUSSION ADVANCE DIRECTIVE DISCUSSION [facility] Start: 05-28-2021 DEPRESSION ASSESSMENT DEPRESSION ASSESSMENT [facility] Start: 2018 Abdominal aortic aneurysm screening Abdominal Aortic Aneurysm (AAA) Screening [facility] Start: 2018 PNEUMOCOCCAL: 65+ (1 - PCV) PNEUMOCOCCAL: 65+ (1 - PCV) [facility] Start: 02-15-2017 Zoster Vaccines (2 of 3) Zoster Vaccines (2 of 3) [facility] Start: 2013 RSV patients and/or patients aged 60+ years (1 - 1-dose 60+ series) RSV patients and/or patients aged 60+ years (1 - 1-dose 60+ series) [facility] Start: 2003 SHINGRIX VACCINE (1 of 2) SHINGRIX VACCINE (1 of 2) [facility] Start: 1998 COLOGUARD (FIT-DNA) COLOGUARD (FIT-DNA) [facility] Start: 1998 Colonoscopy COLONOSCOPY [facility] Start: 1998 COLORECTAL CANCER SCREENING COLORECTAL CANCER SCREENING [facility] Start: [address] COLONOGRAPHY [facility] Start: 1998 DIABETES SCREEN DIABETES SCREEN [facility] Start: 1998 FECAL OCCULT BLOOD FECAL OCCULT BLOOD [facility] Start: 1998 SIGMOIDOSCOPY SIGMOIDOSCOPY [facility] Start: 01-02-1988 LIPID SCREEN LIPID SCREEN [facility] Start: 01-02-1972 Urine microalbumin profile DTAP,TDAP,TD (1 - Tdap) [facility] Start: 1971 Diabetes mellitus screening Diabetes Screening [facility] Start: 1971 HEPATITIS C SCREENING HEPATITIS C SCREENING [facility] Start: 1971 Hepatitis C screening Hepatitis C Screening [facility] Start: 1953 COVID-19 VACCINE (#1) COVID-19 VACCINE (#1) [facility] Start: 1953 Creatinine measurement Creatinine Level [facility] Start: 1953 Lipid panel Lipid Panel [facility] Start: 1953 Medicare Annual Wellness Visit Medicare Annual Wellness Visit (AWV) [facility] Start: 1953 Potassium measurement Potassium Level [facility] Start: 1953 Screening for malignant neoplasm of colon [facility] End: 07-21-2023 Mri brain brain stem w/o w/contrast material MRI BRAIN WO/W IVCON Radiology Routine Paralytic strabismus 1 Occurrences starting 06/21/2022 until 07/21/2023 [facility] Work Phone: Comment on above: 1 Occurrences starting 06/21/2022 until 07/21/2023 End: 07-21-2023 Mri orbit face & neck w/o & w/contrast matrl MRI SOFT TISSUE NECK WO/W IVCON Radiology Routine 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 until 07/21/2023 [facility] Work Phone: Comment on above: 1 Occurrences starting 06/21/2022 until 07/21/2023 Patient Education COPD Exacerbat ion, Adult ED [facility] Work Phone: Patient referral [facility] Work Phone: [facility] Immunizations Immunization Date Immunization Notes Care Provider Fa cili 04-16-2019 Seasonal trivalent influenza vaccine, adjuvanted, preservative free Sera Flower Work Phone: [place] [address] DO Work Phone: 04-16-2019 influenza virus vacc ine, unspecified formulation Rene Castro MD Work Phone: [facility] Work Phone: 03-28-2019 influenza virus vacc ine, unspecified formulation Sera Flower Work Phone: [place] [address] DO Work Phone: 08-16-2018 influenza, seasonal, injectable, preservative free Sera Flower Work Phone: [place] [address] DO Work Phone: 08-16-2018 pneumococcal conjuga te vaccine, 13 valent Sera Flower Work Phone: [facility] [employer] DO Work Phone: 05-28-2018 pneumococcal polysaccharide vaccine, 23 valent Sera Flower Work Phone: [place] [address] DO Work Phone: 08-10-2017 tetanus toxoid, redu daniel diphtheria toxoid, and acellular pertussis vaccine, adsorbed Sera Flower Work Phone: [place] [address] DO Work Phone: 12-21-2016 zoster vaccine, live Sera Flower Work Phone: [place] [address] DO Work Phone: 09-30-2012 pneumococcal polysaccharide vaccine, 23 valent Sear Flower Work Phone: [place] [address] DO Work Phone: 09-30-2012 pneumococcal vaccine , unspecified formulation Hosea Sifuentes DO Work Phone: [facility] 05-28-2010 influenza virus vacc ine, unspecified formulation Rene Castro MD Work Phone: [facility] Work Phone: 03-28-2010 influenza, seasonal, injectable, preservative free Rene Castro MD Work Phone: [facility] Work Phone: 2007 TD(adult) unspecifie d formulation Hosea Sifuentes DO Work Phone: [facility] influenza virus vacc ine, unspecified formulation Sera Flower Work Phone: [place] [address] DO Work Phone: Comment on above: Mar 20102010 Payers Date Payer Category Payer Private Health Insurance HUMANA HUMANA HMO/POS [id number] 2023-Present [address] [address] [place] [address] [id number] 2023 Self-pay [id number] 2022 Department of [facility] e ( and others) [id number] 2022 [employer] ( and others) [id number] 2022 Medicare [id number] 2021 [employer] ( and others) [id number] 2021 Unknown 2017 Medicare [id number] 2017 Medicare [id number] 1953 Unknown [id number] [id number]. 356 1953 Unknown [id number] 2.16.840.1.518663.3.579.2. 356 1953 Unknown [id number] 2.16.840.1.330538.3.579.2. 1068 1953 Unknown [id number] 2.16.840.1.781304.3.579.2. 1068 1953 Unknown [id number] 2.16.840.1.402114.3.579.2. 1259 1953 Unknown [id number] 2.16.840.1.616405.3.579.2. 1259 1953 Unknown [id number] 2.16.840.1.153335.3.579.2. 1259 1953 Unknown [id number] 2.16.840.1.480749.3.579.2. 1259 1953 Unknown [id number] 2.16.840.1.291279.3.579.2. 1259 1953 Unknown [id number] 2.16.840.1.352862.3.579.2. 1259 1953 Unknown [id number] 2.16.840.1.072724.3.579.2. 1259 1953 Unknown [id number] 2.16.840.1.414573.3.579.2. 1244 1953 Unknown [id number] 2.16.840.1.383330.3.579.2. 1244 [employer] ( and others) [id number] Unknown [id number] [id number]. 531 Unknown [id number] [id number]. 531 Social History Date Type Detail Facility Start: 03-23-2023 End: 10-18-2023 No alcohol use No alcohol use [facility] 250 DO Work Phone: Comment on above: 5 CUPS OF COFFEE ANICETO LY; QUIT IN 1984; Start: 05-01-2022 End: 06-14-2023 Tobacco smoking status [facility] Never smoked tobacco [facility] Start: 05-01-2022 End: 10-18-2023 Tobacco use and exposure Smokeless tobacco non-user [facility] Start: 05-01-2022 End: 11-14-2022 Alcohol intake Ex-drinker (finding) [facility] Start: 1955 Sex Assigned At Not on file [facility] Start: 10-15-2020 End: 10-18-2023 Tobacco smoking status IAIS Ex-smoker (finding) [facility] Start: 1955 Sex Assigned At Male F [facility] End: 05-28-1992 History of tobacco use Current smoker [facility] Work Phone: End: 05-28-1992 History of tobacco use Cigarette Smoker [facility] Work Phone: Start: 03-23-2023 End: 10-18-2023 Alcohol intake Lifetime non-drinker (finding) [facility] Work Phone: Start: 03-23-2023 End: 10-18-2023 Tobacco use panel [facility] Work Phone: Start: 03-13-2023 End: 10-18-2023 Exposure to SARS-CoV-2 (event) Not sure [facility] Start: 03-14-2023 Alcohol Comment caffeine: coff ee 5-6 cups a day [facility] Start: 11-13-2022 Gender identity Identifies as male gender (finding) [facility] Clinical Notes 05-01-2022 to 10-18-2023 Rene [...] emphasis on low-calorie diet Rene Castro MD, [facility] Review of Systems All other [...] , Rfl: omega-3 fatty acids-fish oil (One-Per-Day Clifton-3) 684-1,200 mg capsule, Take as directed, Disp: [...] 3 Assessment/Plan 1. Coronary artery disease involving nulato coronary artery of nulato heart without angina pectoris Follow Up In [...] discussion and plan. documented in this encounter [facility] Work Phone: 10-18-2023 Instructions Ana Cunningham LPN [...] up 6 months documented in this encounter [facility] Work Phone: 06-30-2023 History of Presen t [...] x 3 days documented in this encounter [facility] 03-23-2023 History of Presen t illness [...] emphasis on low-calorie diet Rene Castro MD, [facility] Review of Systems All other [...] , Rfl: omega-3 fatty acids-fish oil (One-Per-Day Clifton-3) 684-1,200 mg capsule, Take as directed, Disp: [...] Rfl: Assessment/Plan 1. Coronary artery disease involving nulato coronary artery of nulato heart without angina pectoris Follow Up In [...] Aminotransferase Alanine Aminotransferase documented in this encounter [facility] Work Phone: 03-23-2023 Instructions Millie Hoffmann CMA [...] of your visit. documented in this encounter [facility] Work Phone: 11-14-2022 Note HNO ID: [id number] Author: Deandra Bender MD Service: ? Author [...] or facial palsy H/o Botox injections in tiona-->didn't help No h/o trauma H/o sinus surgery [...] can I get the FL-41 filter? Any [facility] location, (with an optical shop), throughout [place], Email: [email or web address] [employer] [facility] in [place], [place], [facility] in [place], [place], [facility] in [place], [place], [facility] in [place], [place], [phone] [email or web address] Botulinum toxin 3 months, Botulinum toxin [...] Bender MD, November 14, 2022 10:00 AM. [facility] 11-14-2022 History of Presen t illness Narrative Here for botox Right eye just started twitching Tears as needed. -rofPatient still having twitching right eye and occasionally the left. Refresh tears four times a day. -rof A/P: Right hemifacial spasm x 2 years Patient doesn't remember h/o bells or facial palsy H/o Botox injections in tiona-->didn't help No h/o trauma H/o sinus surgery [...] can I get the FL-41 filter? Any [facility] location, (with an optical shop), throughout [place], Email: [email or web address] [employer] in [place], [place], [facility] [facility] in [place], [place], [facility] in [place], [place], [employer] in [place], [place], [email or web address] F/u Botulinum toxin 3 months, Botulinum toxin [...] 2022 10:00 AM. documented in this encounter [facility] 08-08-2022 Note HNO ID: [id number] Author: Deandra Bender MD Service: ? Author [...] Bender MD, August 08, 2022 3:05 PM. [facility] 08-08-2022 History of Presen t illness Narrative Patient still having twitching right eye and occasionally the left. Refresh tears four times a day. -rof A/P: Right hemifacial spasm x 2 years Patient doesn't remember h/o bells or facial palsy H/o Botox injections in tiona-->didn't help No h/o trauma H/o sinus surgery [...] 2022 3:05 PM. documented in this encounter [facility] 08-08-2022 Instructions Deandra Bender MD - 08/08/2022 [...] Recheck next visit documented in this encounter [facility] 06-21-2022 Miscellaneous Notes Notes and MRI orders faxed to [facility]. Electronically signed by Orquidea Davis [facility] at 06/21/2022 2:03 PM EST [facility] called today. : 1955 Allergies: Codeine, Codeine-Guaifenesin, and Guaifenesin (home) [phone] (cell) Reason for call: Sasha F:[phone] Asking for the MRI orders and office notes to be faxed over to [facility]. Patient will be having them done there. Patient last appointment: Visit date not found The patients preferred pharmacy has been captured for this encounter? not asked Delores Mccollum documented in this encounter [facility] 06-21-2022 Note HNO ID: [id number] Author: Deandra Bender MD Service: ? Author Type: Physician Type: Progress Notes Filed: 06/21/2022 9:08 AM Note Text: Twitching right eye x two years. Both upper and lower lid. Trouble reading because of it. +tearing and burning. Refresh four times a day. -rof A/P: Right hemifacial spasm x 2 years Patient doesn't remember h/o bells or facial palsy H/o Botox injections in tiona-->didn't help No h/o trauma H/o sinus surgery [...] Bender MD, June 21, 2022 9:05 AM. [facility] 06-21-2022 Instructions Deandra Bender MD - [...] and get MRI documented in this encounter [facility] 06-21-2022 History of Presen t illness Narrative Twitching right eye x two years. Both upper and lower lid. Trouble reading because of it. +tearing and burning. Refresh four times a day. -rof A/P: Right hemifacial spasm x 2 years Patient doesn't remember h/o bells or facial palsy H/o Botox injections in tiona-->didn't help No h/o trauma H/o sinus surgery [...] by others. I have seen and examined Dmearcus Panchal. I have discussed the case and [...] 2022 9:05 AM. documented in this encounter [facility] 05-01-2022 Note HNO ID: [id number] Author: Mau Randle OD Service: ? Author Type: PRODUCTION MECHANIC Type: Progress Notes Filed: 05/01/2022 9:22 AM [...] of its relevant components. 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 [facility] Diagnosis Clonic hemifacial spasm, right- Primary [facility]* Diagnosis Clonic hemifacial spasm, right- Primary [facility] noteNo assessment information availableGrand [facility] Work Phone: Evaluation note* Diagnosis Coronary artery disease involving nulato coronary artery of nulato heart without angina pectoris Essential hypertension Unspecified essential hypertension Mixed hyperlipidemia Ischemic cardiomyopathy Other specified forms of chronic ischemic heart disease Status post coronary artery stent placement Postsurgical percutaneous transluminal coronary angioplasty status Class 2 obesity with body mass index (BMI) of 35.0 to 35.9 in adult, unspecified obesity type, unspecified whether serious comorbidity present documented in this encounter [facility] Work Phone: Evaluation note* Diagnosis Acute exacerbation of chronic obstructive pulmonary disease (CMS/HCC)- Primary Obstructive chronic bronchitis with exacerbation [facility] Coronary artery disease involving nulato coronary artery of nulato heart without angina pectoris- Primary Essential hypertension [...] hazards to health documented in this encounter [facility] Work Phone: Hospital Discharge instructions Additional Instructions If your symptoms return/worsen or you develop any further concerns or symptoms please see your doctor or return to the emergency department immediately.[facility] Work Phone: Reason for referral (narrative)* Consultation (Routine) - Authorized Specialty Diagnoses / Procedures Referred By Contac t Referred To Contact Cardiology Diagnoses Coronary artery disease involving nulato coronary artery of nulato heart without angina pectoris Essential hypertension Mixed hyperlipidemia Ischemic cardiomyopathy Status post coronary artery stent placement Class 2 obesity with body mass index (BMI) of 35.0 to 35.9 in adult, unspecified obesity type, unspecified whether serious comorbidity present Procedures Follow Up In Cardiology Rene Castro MD [facility] [address] [place] [address] Rene Castro MD [address] [place] [address] [address] [place] [id number] Referral ID Status Reason Start Date Expiration Date V isits Requested Visits Authorized [id number] Authorized 03/23/2023 03/22/2024 1 1 [facility] Work Phone: Reqwos for referral (narrative)* Consultation (Routine) - Authorized Specialty Diagnoses / Procedures Referred By Contac t Referred To Contact Cardiology Diagnoses Coronary artery disease involving nulato coronary artery of nulato heart without angina pectoris Procedures Follow Up In Cardiology Rene Castro MD [address] [place] [address] Rene Castro MD [address] [place] [id number] Referral ID Status Reason Start Date Expiration Date V isits Requested Visits Authorized [id number] Authorized 10/18/2023 10/17/2024 1 1 [facility] Work Phone: Chief Complaint * DEMARCUS [...] infarction with no ischemia. EF in the [id number]. He remains compensated as for ischemic cardiomyopathy. [...] on low-calorie diet * Rene Castro MD, [facility] Family History No Family History [...] W/O & W/CONTRAST Deandra Troncoso MD [address] [place] [address] Mr Imaging Referral ID Status Reason Start Date Expiration Date Visits Requested Visits Authorized [id number] Pending Review Auto-Generat ed Referral 06/21/2022 07/21/2023 1 1 Specialty Diagnoses / Procedures Referred By Contac t Referred To Contact MR IMAGING Diagnoses Paralytic strabismus Procedures MRI BRAIN WO/W IVCON MRI BRAIN BRAIN STEM W/O W/CONTRAST MATERIAL Deandra Bender MD [address] [place] [address] Mr Imaging Referral ID Status Reason Start Date Expiration Date Visits Requested Visits Authorized [id number] Pending Review Auto-Generat ed Referral 06/21/2022 07/21/2023 [...] or prosecute any alcohol or drug abuse patient.[facility] the event this information is protected by the Federal Confidentiality of Alcohol and Drug Abuse Patient Records regulations: The Federal rules restrict any use of the information to criminally investigate or prosecute any alcohol or drug abuse patient.[facility] the event this information is protected by the Federal Confidentiality of Alcohol and Drug Abuse Patient Records regulations: The Federal rules restrict any use of the information to criminally investigate or prosecute any alcohol or drug abuse patient.[facility] the event this information is protected by the Federal Confidentiality of Alcohol and Drug Abuse Patient Records regulations: The Federal rules restrict any use of the information to criminally investigate or prosecute any alcohol or drug abuse patient.[facility] the event this information is protected by the Federal Confidentiality of Alcohol and Drug Abuse Patient Records regulations: The Federal rules restrict any use of the information to criminally investigate or prosecute any alcohol or drug abuse patient.[facility] Reason for Visit (unrecogniz ed section and [...] , up to 100 units Procedures BOTOX [id number] [place] [address] [place] [address] Deandra Bender MD [address] [place] [address] Referral ID Status Reason Start Date Expiration Date V isits Requested Visits Authorized [id number] Authorized 11/14/2022 05/27/2023 99 99 Reason Comments Follow-up 6 months Reason Comments Follow-up 6m Specialty Diagnoses / Procedures Referred By Contac t Referred To Contact Cardiology Diagnoses Coronary artery disease involving nulato coronary artery of nulato heart without angina pectoris Essential hypertension Mixed hyperlipidemia Ischemic cardiomyopathy Status post coronary artery stent placement Class 2 obesity with body mass index (BMI) of 35.0 to 35.9 in adult, unspecified obesity type, unspecified whether serious comorbidity present Procedures Follow Up In Cardiology Rene Castro MD [address] [place] [address] [address], [address] [address] Rene Castro MD [address] [place] [address] [address], [address] [address] Referral ID Status Reason Start Date Expiration Date V isits Requested Visits Authorized [id number] Authorized 03/23/2023 03/22/2024 1 1 (unrecognized sect ion and content) No Status Records FoundNo Status Records FoundNo Status Records FoundNo Status Records FoundNo Status Records FoundNo Status Records FoundNo Status Records FoundNo Status Records Found INFORMATION SOURCE (unrecogn ized section and content) DATE CREATED AUTHOR 07/16/2022 [facility] dical Specialist DATE CREATED AUTHOR AUTHOR'S ORGANIZ ATION 09/09/2022 [employer] DATE CREATED AUTHOR AUTHOR'S ORGANIZ ATION 11/14/2022 [facility] DATE CREATED AUTHOR AUTHOR'S ORGANIZ ATION 02/12/2023 [facility] ical Center DATE CREATED AUTHOR AUTHOR'S ORGANIZ ATION 02/28/2023 [facility] DATE CREATED AUTHOR AUTHOR'S ORGANIZ ATION 06/25/2023 [facility] DATE CREATED AUTHOR AUTHOR'S ORGANIZ ATION 01/03/2024 [facility] dical Specialists EPIC DATE CREATED AUTHOR AUTHOR'S ORGANIZ ATION 01/04/2024 [facility] [employer] Teams (unrecognized sec tion and content) Team Status: Active Member Role Status Dates Sera Flower MD Primary Care Provider Active Team Status: Inactive Member Role Status Dates Sera Flower MD Primary Care Provider, Other Provider Active Rene Castro MD Attending Provider Active Review Engineer Relationship Specialty Start Date End Date Sera Flower MD [address] [place] [address] PCP - General 02/16/21 Team Status: Inactive Member Role Status Dates Sera Flower MD Primary Care Provider Active St art: June 14, 2023 End: June 14, 2023 Jasper Martinez DO Emergency Provider Active Start: June 14, 2023 End: June 14, 2023 Review Engineer Relationship Specialty Start Date End Date eSra Flower MD [address] [place] [address] PCP - [employer] 1/1/23 Sera Flower MD [address] [place] [address] PCP - General Internal Medicine 10/03/22 Review Engineer Relationship Specialty Start Date End Date Sera Flower MD [address] [place] [id number] PCP - General 02/16/21 Goals (unrecognized section [...] BE BASED ON THE PRIMARY CLINICAL RECORDS. [facility] [employer] [facility]. provides no warranty or guarantee of the accuracy or completeness of information in this document.
--- NOTE | 2024-02-17 12:58 | PM.HP ---
HPI H&P: HPI History of Present Illness Chief complaint: SHAKING ABDOMINAL PAIN URINARY PROBLEMS, PNEUMONIA Narrative: 69-year-old male presented to ER with worsening cough that is productive in nature, shortness of breath associated with wheezing and generalized weakness with body shakes, chills and fever. Upon arrival in ER, he was noted to be febrile with increased work of breathing/tachypnea. He was just discharged yesterday when he presented with systemic inflammatory response but at that time no source of infection was identified. He also did not have any localizing signs and symptoms to suggest respiratory infection. This time around, he has evidence of right lower lobe and middle lobe pneumonia resulting in COPD exacerbation for which patient was admitted for inpatient treatment and monitoring as he has high risk of poor outcome/treatment failure because of his history of COPD/interstitial lung disease and congestive heart failure. It is entirely possible that he had pneumonia on previous admission but it was not visible on chest x-ray. Upon my evaluation, patient appears short of breath at rest and has audible wheezing on exam. He is also tachypneic and becomes short of breath during conversation.. Opioid HPI Opioid Management Most Recent Pain and Opioid Data: Last Pain Scale 3 02/16/24 09:49 Last Pain Assessment 02/16/24 12:52 Last MAR Pain Assessment 02/17/24 11:12 Last ORT Total Score 0 02/17/24 13:11 Last ORT Risk Category Low Risk 02/17/24 13:11 Review of Systems ROS Status of ROS 10 or more systems reviewed and unremarkable except as noted in history and below [facility] Medical History (Updated 02/17/24 @ 13:30 by Shaikh Balwinder MD) Pneumonia due to COVID-19 virus ?U07.1 - COVID-19 (ICD-10) ?J12.82 - Pneumonia due to coronavirus disease 2019 (ICD-10) COVID-19 ?U07.1 - COVID-19 (ICD-10) Acute on chronic congestive heart failure ?I50.9 - Heart failure, unspecified (ICD-10) COPD exacerbation ?J44.1 - Chronic obstructive pulmonary disease with (acute) exacerbation (ICD-10) Congestive heart failure ?I50.9 - Heart failure, unspecified (ICD-10) BPH (benign prostatic hyperplasia) ?N40.0 - Benign prostatic hyperplasia without lower urinary tract symptoms (ICD-10) CAD (coronary artery disease) ?I25.10 - Atherosclerotic heart disease of [place] coronary artery without angina pectoris (ICD-10) GERD (gastroesophageal reflux disease) ?K21.9 - Gastro-esophageal reflux disease without esophagitis (ICD-10) Hypertension ?I10 - Essential (primary) hypertension (ICD-10) COPD (chronic obstructive pulmonary disease) ?J44.9 - Chronic obstructive pulmonary disease, unspecified (ICD-10) Bronchitis ?J40 - Bronchitis, not specified as acute or chronic (ICD-10) Emphysema of lung ?J43.9 - Emphysema, unspecified (ICD-10) Heart attack ?I21.9 - Acute myocardial infarction, unspecified (ICD-10) COPD exacerbation ?J44.1 - Chronic obstructive pulmonary disease with (acute) exacerbation (ICD-10) COVID-19 ?U07.1 - COVID-19 (ICD-10) Surgical History H/O sinus surgery ?Z98.890 - Other specified postprocedural states (ICD-10) H/O shoulder surgery ?Z98.890 - Other specified postprocedural states (ICD-10) H/O heart artery stent ?Z95.5 - Presence of coronary angioplasty implant and graft (ICD-10) Family History Aunt Family history of cancer Mother Family history of diabetes mellitus Brother Family history of hypertension Father Family history of hypertension Social History Within the past year, how often did you have a drink containing alcohol: never Score interpretation: A score less than 4 is consistent with normal alcohol consumption. Smoking status: Former smoker Non-prescribed substance use: denies use Previous occupational history: [employer] Known occupational exposures/hazards: No Highest level of school completed/degree received: high school graduate Are you now , , , , never or living with a partner: In a typical week, how many times do you talk on the telephone with family, friends, or neighbors: 3 or more times per week How often do you get together with friends or relatives: 3 or more times per week How often do you attend temple or evangelical services: never Little interest or pleasure in doing things: not at all Feeling down, depressed, or hopeless: not at all Feel stressed/tense/nervous/anxious/difficulty sleeping: not at all Do you think of yourself as: straight/heterosexual Gender Identity: male Meds Home Medications and Allergies Home Medications ?Medication ?Instructions ?Recorded ?Confirmed ?Type carvedilol 6.25 mg tablet 6.25 mg PO Q12H 07/22/23 02/17/24 History losartan 50 mg tablet 50 mg PO DAILY 07/22/23 02/17/24 History omeprazole 20 mg capsule,delayed 20 mg PO Q24H 07/22/23 02/17/24 History release tamsulosin 0.4 mg capsule 0.4 mg PO DAILY 07/22/23 02/17/24 History albuterol sulfate 90 mcg/actuation 2 inh inhalation Q6H PRN shortness 12/25/23 02/17/24 Rx aerosol inhaler (Ventolin HFA) of breath or wheezing #6.7 grams furosemide 40 mg tablet (Lasix) 40 mg PO DAILY #30 tabs 12/25/23 02/17/24 Rx ipratropium 0.5 mg-albuterol 3 mg 3 ml inhalation Q6H PRN shortness 02/02/24 02/17/24 Rx (2.5 mg base)/3 mL nebulization of breath #90 mL soln sodium chloride 0.9 % for 3 ml inhalation BID 02/15/24 02/17/24 History nebulization sildenafil 100 mg tablet 100 mg PO Q24H PRN erectile 02/17/24 02/17/24 History dysfunction Allergies Allergy/AdvReac Type Severity Reaction Status Date / Time codeine Allergy Intermediate Hallucinati Verified 02/17/24 10:37 ng Exam Constitutional Vital Signs, click to edit/add: Last Vital Signs Temp 99.9 F 02/17/24 12:25 Pulse 79 02/17/24 12:00 Resp 22 H 02/17/24 12:00 BP 121/58 02/17/24 12:00 Pulse Ox 96 02/17/24 12:00 O2 Del Method Room Air 02/17/24 10:33 General appearance: cooperative, comfortable and ill appearing HENKY Common normals: normocephalic and head/scalp atraumatic Respiratory Common normals: normal respiratory effort and no use of accessory muscles Effort & inspection: tachypneic Auscultation: wheezes throughout Other: Conversational dyspnea noted Cardio Common normals: no JVD, regular rate, regular rhythm, S1 normal heart sound and S2 normal heart sound Extremity Common normals: normal to inspection and full ROM Neuro Common normals: oriented x3, no focal motor deficits and no sensory deficits noted Psych Common normals: mental status grossly normal, thought process normal, denies homicidal ideation and denies suicidal ideation Results Labs Labs: Short CBC 02/17/24 Range/Units 10:40 WBC 16.1 H (4.0-11.0) 10^3/uL Hgb 13.0 L (14.0-18.0) g/dL Hct 37.8 L (42.0-54.0) % Plt Count 141 L (150-450) 10^3/uL BMP 02/17/24 10:40 Sodium 128 L Potassium 3.6 Chloride 95 L Carbon Dioxide 26.2 BUN 8.0 Creatinine 1.01 Glucose 126 H Calcium 8.5 Urine 02/17/24 Range/Units 10:55 Urine Color Lt. yellow (YELLOW) Urine Clarity Clear (CLEAR) Urine pH 7.0 (5.0-9.0) Ur Specific [place] 1.010 (1.005-1.025) Urine Protein Negative (NEG/TRACE) mg/dL Urine Glucose (UA) Negative (NEGATIVE) mg/dL Assessment and Plan Assessment and Plan (1) Sepsis: Assessment and Plan: SIRS (WBC 16k, Temp 101, RR > 20) - source of infection is PNA. Follow-up blood and sputum cultures. Started patient on IV Rocephin and azithromycin. Restrictive fluid resuscitation because of history of congestive heart failure. Qualifiers: Sepsis acute organ dysfunction status: without acute organ dysfunction Sepsis type: sepsis due to unspecified organism Qualified Code(s): A41.9 - Sepsis, unspecified organism (2) Pneumonia: Assessment and Plan: Right lobe pneumonia with PSI/PORT score of 101. Risk of mortality 8-9%. Multiple risk factors for poor outcome - CHF/ILD/COPD. Patient on IV Rocephin and azithromycin. Follow-up sputum and blood culture Qualifiers: Laterality: right Lung location: middle lobe of lung Pneumonia type: due to unspecified organism Qualified Code(s): J18.9 - Pneumonia, unspecified organism (3) Hyponatremia: Assessment and Plan: Hyponatremia likely secondary to pneumonia. Received IV fluids in ER. Monitor closely. (4) Hypertension: Assessment and Plan: Blood pressure is stable. Monitor closely. Qualifiers: Hypertension type: primary hypertension Qualified Code(s): I10 - Essential (primary) hypertension (5) Congestive heart failure: Assessment and Plan: Received IV fluid in ER. High risk of volume overload because of history of heart failure. Stop IV fluids as patient appears little volume overload already on exam. Continue with home dose of Lasix. Qualifiers: Heart failure chronicity: chronic Heart failure type: systolic Qualified Code(s): I50.22 - Chronic systolic (congestive) heart failure (6) COPD (chronic obstructive pulmonary disease): Assessment and Plan: Acute COPD exacerbation with audible wheezing, increased work of breathing. Started patient on DuoNebs and systemic steroids. Qualifiers: COPD type: COPD with acute lower respiratory infection Qualified Code(s): J44.0 - Chronic obstructive pulmonary disease with (acute) lower respiratory infection (7) CAD (coronary artery disease): Assessment and Plan: No evidence of active cardiac ischemia. Monitor closely. Qualifiers: Associated angina: without angina Coronary Disease-Associated Artery/Lesion type: [place] artery [place] vs. transplanted heart: [place] heart Qualified Code(s): I25.10 - Atherosclerotic heart disease of [place] coronary artery without angina pectoris (8) GERD (gastroesophageal reflux disease): Assessment and Plan: Continue with oral PPI Qualifiers: Esophagitis presence: without esophagitis Qualified Code(s): K21.9 - Gastro-esophageal reflux disease without esophagitis (9) BPH (benign prostatic hyperplasia): Assessment and Plan: Continue with Flomax Qualifiers: Lower urinary tract symptom presence: symptoms absent Qualified Code(s): N40.0 - Benign prostatic hyperplasia without lower urinary tract symptoms Plan Patient admitted for inpatient treatment of Sepsis, right lower lobe pneumonia, COPD exacerbation. His Pneumonia Severity index is 101 with mortality rate of 8 to 9%. He is anticipated to require more than 2 to 3 days of inpatient monitoring and treatment because of high risk of treatment failure and poor prognosis including Urinary Catheter Management Urinary Catheter Management Straight: Cath placed during this visit: yes Urethral indwelling: No Insertion date: 02/17/24 Insertion time: 11:00 Urethral: Cath placed during this visit: yes Urethral indwelling: No Insertion date: 02/17/24 Insertion time: 11:20
[2024-02-17] MEDS: ENOXAPARIN SODIUM 40 MG/0.4 ML SYRINGE SUBQ (13:57)
[2024-02-17] MEDS: METHYLPREDNISOLONE SOD SUCC PF 40 MG/ML VIAL IVP ×2 (13:57→21:52)
[2024-02-17] MEDS: IPRATROPIUM/ALBUTEROL SULFATE 3 ML AMPUL.NEB IH ×2 (15:13→22:53)
[2024-02-17] MEDS: CARVEDILOL 6.25 MG TABLET PO (21:42)
[2024-02-18] VITALS (9 sets, daily range): BP systolic 123–144; BP diastolic 68–80; PULSE 68–82; TEMP 36.4–36.7; O2SAT 93–96
[2024-02-18] MEDS: METHYLPREDNISOLONE SOD SUCC PF 40 MG/ML VIAL IVP ×3 (05:16→21:10)
[2024-02-18] MEDS: IPRATROPIUM/ALBUTEROL SULFATE 3 ML AMPUL.NEB IH ×4 (05:21→22:06)
[2024-02-18 06:10] LABS: Basophils Percent Auto 0.1 % (0.2-2.0); Hematocrit 36.8 % (42.0-54.0); Hemoglobin 12.8 g/dL (14.0-18.0); Immature Granulocytes Abs Auto 0.19 10^3/uL (0.00-0.03); Immature Granulocytes Pct Auto 1.2 % (0.0-0.5); Lymphocytes Absolute Auto 0.9 10^3/uL (1.2-3.8); Lymphocytes Percent Auto 5.9 % (20.5-60.0); Mean Corpuscular HGB Conc 34.8 g/dL (29.9-35.2); Mean Corpuscular Hemoglobin 29.2 pg (25.9-34.0); Mean Corpuscular Volume 83.8 fL (80.0-94.0); Mean Platelet Volume 10.8 fL (9.5-13.5); Monocytes Absolute Auto 0.6 10^3/uL (0.3-0.8); Monocytes Percent Auto 3.5 % (1.7-12.0); Neutrophils Absolute Auto 14.2 10^3/uL (1.4-6.5); Neutrophils Percent Auto 89.3 % (43.0-75.0); Platelet Count 151 10^3/uL (150-450); Red Blood Count 4.39 10^6/uL (4.70-6.10); Red Cell Distribution Width 13.7 % (11.0-15.0); White Blood Count 15.9 10^3/uL (4.0-11.0)
[2024-02-18 06:35] LABS: Alanine Aminotransferase 25 U/L (16-63); Albumin Globulin Ratio 0.8; Albumin Level 2.8 g/dL (3.4-5.0); Alkaline Phosphatase 60 U/L (46-116); Aspartate Amino Transferase 14 U/L (15-37); BUN Creatinine Ratio 11.2; Bilirubin Total 0.6 mg/dL (0.2-1.0); Calcium 8.8 mg/dL (8.5-10.1); Chloride 99 mmol/L (98-107); Estimated GFR (African America >60 (>=60); Estimated GFR (Non-African Ame >60 (>=60); Globulin 3.6 g/dL; Glucose 208 mg/dL (74-106); Potassium 4.2 mmol/L (3.5-5.1); Sodium 130 mmol/L (136-145); Total Protein 6.4 g/dL (6.4-8.2)
[2024-02-18 06:43] LABS: Anion Gap 13.5; Carbon Dioxide 21.7 mmol/L (21.0-32.0)
[2024-02-18] MEDS: AZITHROMYCIN 250 MG TABLET 500 MG PO (08:24)
[2024-02-18] MEDS: OMEPRAZOLE 20 MG CAPSULE.DR PO (08:24)
[2024-02-18] MEDS: TAMSULOSIN HCL 0.4 MG CAPSULE PO (08:24)
[2024-02-18] MEDS: FUROSEMIDE 40 MG TABLET PO (08:24)
[2024-02-18] MEDS: CARVEDILOL 6.25 MG TABLET PO ×2 (08:24→21:10)
[2024-02-18] MEDS: BENZONATATE 100 MG CAPSULE PO (08:24)
[2024-02-18] MEDS: ENOXAPARIN SODIUM 40 MG/0.4 ML SYRINGE SUBQ (08:24)
[2024-02-18] MEDS: LOSARTAN POTASSIUM 50 MG TABLET PO (08:24)
--- NOTE | 2024-02-18 10:27 | PM.IMPN1 ---
Progress Note: A&P Assessment and Plan (1) Sepsis: Assessment and Plan: Stable hemodynamics. C/w IV abx for CAP. Fu cx. Qualifiers: Sepsis type: sepsis due to unspecified organism Sepsis acute organ dysfunction status: without acute organ dysfunction Qualified Code(s): A41.9 - Sepsis, unspecified organism (2) Pneumonia: Assessment and Plan: C/w Rocephin/Azithromycin for CAP. F/u cx. Qualifiers: Laterality: right Lung location: middle lobe of lung Pneumonia type: due to unspecified organism Qualified Code(s): J18.9 - Pneumonia, unspecified organism (3) Hyponatremia: Assessment and Plan: Improved. Monitor. (4) Hypertension: Assessment and Plan: BP stable. Monitor. C/w home medications. Qualifiers: Hypertension type: primary hypertension Qualified Code(s): I10 - Essential (primary) hypertension (5) Congestive heart failure: Assessment and Plan: Volume overload on exam likely from IVF and IV steroids. Started on IV lasix. Monitor I/O, daily weights. Repeat CXR tomorrow. Qualifiers: Heart failure chronicity: acute on chronic Heart failure type: systolic Qualified Code(s): I50.23 - Acute on chronic systolic (congestive) heart failure (6) COPD (chronic obstructive pulmonary disease): Assessment and Plan: Wheezing improved. jerman Ferreira. Qualifiers: COPD type: COPD with acute lower respiratory infection Qualified Code(s): J44.0 - Chronic obstructive pulmonary disease with (acute) lower respiratory infection (7) CAD (coronary artery disease): Assessment and Plan: No evidence of active cardiac ischemia. Monitor. Qualifiers: Coronary Disease-Associated Artery/Lesion type: [place] artery [place] vs. transplanted heart: [place] heart Associated angina: without angina Qualified Code(s): I25.10 - Atherosclerotic heart disease of [place] coronary artery without angina pectoris (8) GERD (gastroesophageal reflux disease): Assessment and Plan: C/w PPI Qualifiers: Esophagitis presence: without esophagitis Qualified Code(s): K21.9 - Gastro-esophageal reflux disease without esophagitis (9) BPH (benign prostatic hyperplasia): Assessment and Plan: c/w Flomax Qualifiers: Lower urinary tract symptom presence: symptoms absent Qualified Code(s): N40.0 - Benign prostatic hyperplasia without lower urinary tract symptoms Plan Needs continued inpatient treatment as patient is still dyspneic upon minimal exertion. Now has evidence of volume overload and acute on chronic CHF - needs IV diuresis Internal Medicine - PN: Subj Subjective Interval history: Seen and examined. Appears SOB at rest. Poorly controlled productive cough with deep inspiration. Feels unwell and overall weak. No sig improvement subjectively. Exam Constitutional Vital Signs, click to edit/add: Last Vital Signs Temp 97.5 F L 02/18/24 04:16 Pulse 68 02/18/24 05:22 Resp 20 02/18/24 05:22 BP 138/80 02/18/24 08:24 Pulse Ox 95 02/18/24 05:22 O2 Del Method Room Air 02/18/24 05:22 General appearance: cooperative, comfortable and ill appearing Respiratory Common normals: normal respiratory effort and no use of accessory muscles Auscultation: rales bilateral and wheezes scattered wheezes Other: Conversational dyspnea noted Cardio Common normals: regular rate, regular rhythm, S1 normal heart sound and S2 normal heart sound Jugular venous distention: JVD Extremity Common normals: normal to inspection and full ROM General: edema (trace pedal edema) Neuro Common normals: oriented x3, no focal motor deficits and no sensory deficits noted Psych Common normals: mental status grossly normal, thought process normal, denies homicidal ideation and denies suicidal ideation Internal Medicine - PN: Obj Da Labs Labs: Laboratory Results - last 24 hr 02/17/24 02/17/24 02/17/24 10:40 10:55 11:25 WBC 16.1 H RBC 4.48 L Hgb 13.0 L Hct 37.8 L MCV 84.4 MCH 29.0 MCHC 34.4 RDW 14.1 Plt Count 141 L MPV 10.8 Neut % (Auto) 85.4 H Lymph % (Auto) 6.6 L Scott % (Auto) 6.3 Eos % (Auto) 0.4 L Baso % (Auto) 0.4 Neut # (Auto) 13.8 H Lymph # (Auto) 1.1 L Scott # (Auto) 1.0 H Eos # (Auto) 0.1 Baso # (Auto) 0.1 Abs Immat Gran (auto) 0.14 H Imm/Tot Granulo (auto) 0.9 H Sodium 128 L Potassium 3.6 Chloride 95 L Carbon Dioxide 26.2 Anion Gap 10.4 BUN 8.0 Creatinine 1.01 Est GFR ( Amer) >60 Est GFR (Non-Af Amer) >60 BUN/Creatinine Ratio 7.9 Glucose 126 H Lactate 2.0 Calcium 8.5 Total Bilirubin AST ALT Alkaline Phosphatase Total Protein Albumin Globulin Albumin/Globulin Ratio Urine Color Lt. yellow Urine Clarity Clear Urine pH 7.0 Ur Specific [place] 1.010 Urine Protein Negative Urine Glucose (UA) Negative Urine Ketones Negative Urine Occult Blood Small A Urine Nitrite Negative Urine Bilirubin Negative Urine Urobilinogen 0.2 Ur Leukocyte Esterase Negative Urine RBC 0-2 Urine WBC None seen Ur Squamous Epith Cells None seen Urine Crystals None seen Urine Bacteria None seen Urine Casts None seen Urine Mucus None seen SARS-CoV-2 Ag (CV2AG) Negative 02/18/24 05:53 WBC 15.9 H RBC 4.39 L Hgb 12.8 L Hct 36.8 L MCV 83.8 MCH 29.2 MCHC 34.8 RDW 13.7 Plt Count 151 MPV 10.8 Neut % (Auto) 89.3 H Lymph % (Auto) 5.9 L Scott % (Auto) 3.5 Eos % (Auto) 0.0 L Baso % (Auto) 0.1 L Neut # (Auto) 14.2 H Lymph # (Auto) 0.9 L Scott # (Auto) 0.6 Eos # (Auto) 0.0 Baso # (Auto) 0.0 Abs Immat Gran (auto) 0.19 H Imm/Tot Granulo (auto) 1.2 H Sodium 130 L Potassium 4.2 Chloride 99 Carbon Dioxide 21.7 Anion Gap 13.5 BUN 9.0 Creatinine 0.80 Est GFR ( Amer) >60 Est GFR (Non-Af Amer) >60 BUN/Creatinine Ratio 11.2 Glucose 208 H Lactate Calcium 8.8 Total Bilirubin 0.6 AST 14 L ALT 25 Alkaline Phosphatase 60 Total Protein 6.4 Albumin 2.8 L Globulin 3.6 Albumin/Globulin Ratio 0.8 Urine Color Urine Clarity Urine pH Ur Specific [place] Urine Protein Urine Glucose (UA) Urine Ketones Urine Occult Blood Urine Nitrite Urine Bilirubin Urine Urobilinogen Ur Leukocyte Esterase Urine RBC Urine WBC Ur Squamous Epith Cells Urine Crystals Urine Bacteria Urine Casts Urine Mucus SARS-CoV-2 Ag (CV2AG) Urinary Catheter Management Urinary Catheter Management Straight: Cath placed during this visit: yes Urethral indwelling: No Insertion date: 02/17/24 Insertion time: 11:00 Urethral: Cath placed during this visit: yes Urethral indwelling: No Insertion date: 02/17/24 Insertion time: 11:20
--- NOTE | 2024-02-18 10:29 | CM.NOTE ---
Rounds made with Dr. Britt. Continues with cough and short of breath. No discharge today.
[2024-02-18] MEDS: FUROSEMIDE 40 MG/4 ML VIAL IVP ×2 (10:45→21:10)
--- NOTE | 2024-02-18 10:52 | SWNOTE1 ---
SW met with pt to discuss dc needs. Pt lives at home with his . Pt does not use any DME at home and has about 15 steps to go up and down and basement stairs as well. Pt voiced he does them daily and is fine. At this time no anticipated discharge needs. SW to follow as needed. Important Message from Medicare reviewed and discussed with patient. Pt. verbalized understanding and signed the form. Original given to patient and copy placed in patient?s chart.
[2024-02-18] MEDS: 0.9 % SODIUM CHLORIDE 250 ML 10 ML IV (11:45)
[2024-02-18] MEDS: CEFTRIAXONE 1,000 MG in 0.9 % SODIUM CHLORIDE 50 ML 100 MG IV (11:45)
[2024-02-18] MEDS: GUAIFENESIN 200 MG/DEXTROMETHORPHAN 20 MG 10 ML UNIT DOSE CUP PO (15:10)
[2024-02-19] VITALS (9 sets, daily range): BP systolic 123–166; BP diastolic 68–85; PULSE 74–82; TEMP 36.4–36.6; O2SAT 94–98
[2024-02-19] MEDS: IPRATROPIUM/ALBUTEROL SULFATE 3 ML AMPUL.NEB IH ×4 (04:07→22:00)
[2024-02-19] MEDS: METHYLPREDNISOLONE SOD SUCC PF 40 MG/ML VIAL IVP ×2 (05:07→14:02)
[2024-02-19] MEDS: GUAIFENESIN 200 MG/DEXTROMETHORPHAN 20 MG 10 ML UNIT DOSE CUP PO ×2 (05:12→11:46)
[2024-02-19 06:02] LABS: Basophils Percent Auto 0.1 % (0.2-2.0); Hematocrit 35.5 % (42.0-54.0); Hemoglobin 12.2 g/dL (14.0-18.0); Immature Granulocytes Abs Auto 0.25 10^3/uL (0.00-0.03); Immature Granulocytes Pct Auto 1.5 % (0.0-0.5); Lymphocytes Percent Auto 5.7 % (20.5-60.0); Mean Corpuscular HGB Conc 34.4 g/dL (29.9-35.2); Mean Corpuscular Volume 84.5 fL (80.0-94.0); Mean Platelet Volume 11.3 fL (9.5-13.5); Monocytes Absolute Auto 0.6 10^3/uL (0.3-0.8); Monocytes Percent Auto 3.4 % (1.7-12.0); Neutrophils Absolute Auto 14.9 10^3/uL (1.4-6.5); Neutrophils Percent Auto 89.3 % (43.0-75.0); Platelet Count 162 10^3/uL (150-450); White Blood Count 16.7 10^3/uL (4.0-11.0)
[2024-02-19 06:22] LABS: Alanine Aminotransferase 23 U/L (16-63); Albumin Globulin Ratio 0.8; Albumin Level 2.7 g/dL (3.4-5.0); Alkaline Phosphatase 60 U/L (46-116); Anion Gap 15.1; Aspartate Amino Transferase 11 U/L (15-37); BUN Creatinine Ratio 14.3; Bilirubin Total 0.3 mg/dL (0.2-1.0); Calcium 8.7 mg/dL (8.5-10.1); Carbon Dioxide 21.6 mmol/L (21.0-32.0); Chloride 95 mmol/L (98-107); Estimated GFR (African America >60 (>=60); Estimated GFR (Non-African Ame >60 (>=60); Globulin 3.6 g/dL; Glucose 283 mg/dL (74-106); Potassium 3.7 mmol/L (3.5-5.1); Sodium 128 mmol/L (136-145); Total Protein 6.3 g/dL (6.4-8.2)
--- NOTE | 2024-02-19 07:00 | XR_ITS ---
The [address] [address] Patient Name: DEMARCUS CALDERON MRN: [id number] date: 1955 Sex: M Assigned Patient Location: [place] Current Patient Location: [place] Accession/Order Number: [id number] Exam Date: 02/19/2024 06:17 Report Date: 02/19/2024 07:49 At the request of: SHAIKH STEPHANIE Procedure: XR chest 1V EXAMINATION: XR chest 1V HISTORY: pna COMPARISON: XR chest 02/17/2024, 02/15/2024 FINDINGS: LUNGS: Haziness and mild patchy opacities within right lung. Left lung is clear. VASCULATURE: No increased pulmonary vasculature. PLEURA: No pneumothorax, effusion, or pleural thickening. CARDIAC: No cardiomegaly or cardiac silhouette abnormality. MEDIASTINUM: No visible mass or adenopathy. BONES: No fracture or visible bone lesion. OTHER: Negative. XR/XR chest 1V IMPRESSION: 1. Scattered mild right pulmonary infiltrates which have decreased since prior study, but are still greater than seen on 02/15/2024. Suspect resolving pneumonia. Electronically authenticated by: TEX HARTMANN Date: 02/19/2024 07:49
[2024-02-19] MEDS: ENOXAPARIN SODIUM 40 MG/0.4 ML SYRINGE SUBQ (09:06)
[2024-02-19] MEDS: AZITHROMYCIN 250 MG TABLET 500 MG PO (09:06)
[2024-02-19] MEDS: TAMSULOSIN HCL 0.4 MG CAPSULE PO (09:06)
[2024-02-19] MEDS: OMEPRAZOLE 20 MG CAPSULE.DR PO (09:06)
[2024-02-19] MEDS: BENZONATATE 100 MG CAPSULE PO (09:06)
[2024-02-19] MEDS: CARVEDILOL 6.25 MG TABLET PO ×2 (09:06→21:14)
[2024-02-19] MEDS: FUROSEMIDE 40 MG/4 ML VIAL IVP ×2 (09:06→21:14)
[2024-02-19] MEDS: LOSARTAN POTASSIUM 50 MG TABLET PO (09:06)
--- NOTE | 2024-02-19 10:19 | CM.NOTE ---
Rounds made with Dr. Britt. Repeat CXR ordered. Dr. Britt to re-eval later today for potential discharge. Mr. Panchal verbalizes understanding.
--- NOTE | 2024-02-19 11:30 | P.IMPN_ITS ---
Progress Note: A&P Assessment and Plan (1) Sepsis: Assessment and Plan: Stable hemodynamics. Cx pending. C/w IV abx for CAP. Qualifiers: Sepsis type: sepsis due to unspecified organism Sepsis acute organ dysfunction status: without acute organ dysfunction Qualified Code(s): A41.9 - Sepsis, unspecified organism (2) Pneumonia: Assessment and Plan: C/w Rocephin/Azithromycin for CAP. F/u cx. Still dyspneic, minimal improvement. CXR shows improvement. Qualifiers: Laterality: right Lung location: middle lobe of lung Pneumonia type: d ue to unspecified organism Qualified Code(s): J18.9 - Pneumonia, unspecified organism (3) Hyponatremia: Assessment and Plan: Improved. Monitor. (4) Hypertension: Assessment and Plan: BP stable. Monitor. C/w home medications. Qualifiers: Hypertension type: primary hypertension Qualified Code(s): I10 - Essential (primary) hypertension (5) Congestive heart failure: Assessment and Plan: c/w IV lasix. Still volume overload. Monitor I/O, daily weights. Qualifiers: Heart failure chronicity: acute on chronic Heart failure type: systolic Qualified Code(s): I50.23 - Acute on chronic systolic (congestive) heart failure (6) COPD (chronic obstructive pulmonary disease): Assessment and Plan: Significant wheezing and coarse breath sounds throughout. C/w systemic steroids, duonebs. Monitor closely. Qualifiers: COPD type: COPD with acute lower respiratory infection Qualified Code(s): J44.0 - Chronic obstructive pulmonary disease with (acute) lower respiratory infection (7) CAD (coronary artery disease): Assessment and Plan: No evidence of active cardiac ischemia. Monitor. Qualifiers: Coronary Disease-Associated Artery/Lesion type: [place] artery [place] vs. transplanted heart: [place] heart Associated angina: without angina Qualified Code(s): I25.10 - Atherosclerotic heart disease of [place] coronary artery without angina pectoris (8) GERD (gastroesophageal reflux disease): Assessment and Plan: C/w PPI Qualifiers: Esophagitis presence: without esophagitis Qualified Code(s): K21.9 - Gastro-esophageal reflux disease without esophagitis (9) BPH (benign prostatic hyperplasia): Assessment and Plan: c/w Flomax Qualifiers: Lower urinary tract symptom presence: symptoms absent Qualified Code(s): N40.0 - Benign prostatic hyperplasia without lower urinary tract symptoms Plan Still dyspneic, severe persistent cough, sig wheezing on exam today. Needs continued inpatient treatment as he is still quite SOB and reports only minimal improvement. Internal Medicine - PN: Subj Subjective Interval history: Seen and examined. Feeling only a little better. Still has severe cough and gets dyspneic on minimal exertion. Exam Constitutional Vital Signs, click to edit/add: Last Vital Signs Temp 97.5 F L 02/19/24 04:14 Pulse 75 02/19/24 04:14 Resp 18 02/19/24 04:14 BP 148/85 H 02/19/24 09:06 Pulse Ox 98 02/19/24 10:02 O2 Del Method Room Air 02/19/24 10:02 General appearance: cooperative, comfortable and ill appearing Respiratory Common normals: no use of accessory muscles Auscultation: wheezes throughout Other: Severe hacking cough. Coarse breath sounds throughout lung [place]. Cardio Common normals: regular rate, regular rhythm, S1 normal heart sound and S2 normal heart sound Jugular venous distention: JVD Extremity Common normals: normal to inspection and full ROM General: edema (trace pedal edema) Neuro Common normals: oriented x3, no focal motor deficits and no sensory deficits noted Psych Common normals: mental status grossly normal, thought process normal, denies homicidal ideation and denies suicidal ideation Internal Medicine - PN: Obj Da Labs Labs: Laboratory Results - last 24 hr 02/19/24 05:39 WBC 16.7 H RBC 4.20 L Hgb 12.2 L Hct 35.5 L MCV 84.5 MCH 29.0 MCHC 34.4 RDW 14.0 Plt Count 162 MPV 11.3 Neut % (Auto) 89.3 H Lymph % (Auto) 5.7 L [place] % (Auto) 3.4 Eos % (Auto) 0.0 L Baso % (Auto) 0.1 L Neut # (Auto) 14.9 H Lymph # (Auto) 1.0 L [place] # (Auto) 0.6 Eos # (Auto) 0.0 Baso # (Auto) 0.0 Abs Immat Gran (auto) 0.25 H Imm/Tot Granulo (auto) 1.5 H Sodium 128 L Potassium 3.7 Chloride 95 L Carbon Dioxide 21.6 Anion Gap 15.1 BUN 14.0 Creatinine 0.98 Est GFR ( Amer) >60 Est GFR (Non-Af Amer) >60 BUN/Creatinine Ratio 14.3 Glucose 283 H Calcium 8.7 Total Bilirubin 0.3 AST 11 L ALT 23 Alkaline Phosphatase 60 Total Protein 6.3 L Albumin 2.7 L Globulin 3.6 Albumin/Globulin Ratio 0.8 Urinary Catheter Management Urinary Catheter Management Straight: Cath placed during this visit: yes Urethral indwelling: No Insertion date: 02/17/24 Insertion time: 11:00 Urethral: Cath placed during this visit: yes Urethral indwelling: No Insertion date: 02/17/24 Insertion time: 11:20
[2024-02-19] MEDS: CEFTRIAXONE 1,000 MG in 0.9 % SODIUM CHLORIDE 50 ML 100 MG IV (11:45)
[2024-02-20 04:06] VITALS: BP 152/89; PULSE 82; TEMP 36.7; O2SAT 95
[2024-02-20] MEDS: GUAIFENESIN 200 MG/DEXTROMETHORPHAN 20 MG 10 ML UNIT DOSE CUP PO ×2 (04:10→10:25)
[2024-02-20 04:12] VITALS: PULSE 84; O2SAT 94
[2024-02-20] MEDS: IPRATROPIUM/ALBUTEROL SULFATE 3 ML AMPUL.NEB IH ×2 (04:12→10:38)
[2024-02-20] MEDS: METHYLPREDNISOLONE SOD SUCC PF 40 MG/ML VIAL IVP (05:33)
[2024-02-20 06:22] LABS: Basophils Percent Auto 0.1 % (0.2-2.0); Hematocrit 38.2 % (42.0-54.0); Hemoglobin 13.3 g/dL (14.0-18.0); Immature Granulocytes Abs Auto 0.12 10^3/uL (0.00-0.03); Immature Granulocytes Pct Auto 0.8 % (0.0-0.5); Lymphocytes Absolute Auto 1.5 10^3/uL (1.2-3.8); Lymphocytes Percent Auto 10.6 % (20.5-60.0); Mean Corpuscular HGB Conc 34.8 g/dL (29.9-35.2); Mean Corpuscular Volume 83.4 fL (80.0-94.0); Mean Platelet Volume 10.4 fL (9.5-13.5); Monocytes Percent Auto 6.8 % (1.7-12.0); Neutrophils Absolute Auto 11.6 10^3/uL (1.4-6.5); Neutrophils Percent Auto 81.7 % (43.0-75.0); Platelet Count 212 10^3/uL (150-450); Red Blood Count 4.58 10^6/uL (4.70-6.10); Red Cell Distribution Width 14.1 % (11.0-15.0); White Blood Count 14.2 10^3/uL (4.0-11.0)
[2024-02-20 06:45] LABS: Alanine Aminotransferase 28 U/L (16-63); Albumin Globulin Ratio 0.8; Albumin Level 2.9 g/dL (3.4-5.0); Alkaline Phosphatase 61 U/L (46-116); Anion Gap 11.8; Aspartate Amino Transferase 16 U/L (15-37); BUN Creatinine Ratio 17.6; Bilirubin Total 0.4 mg/dL (0.2-1.0); Carbon Dioxide 26.6 mmol/L (21.0-32.0); Chloride 97 mmol/L (98-107); Estimated GFR (African America >60 (>=60); Estimated GFR (Non-African Ame >60 (>=60); Globulin 3.5 g/dL; Glucose 207 mg/dL (74-106); Potassium 3.4 mmol/L (3.5-5.1); Sodium 132 mmol/L (136-145); Total Protein 6.4 g/dL (6.4-8.2)
[2024-02-20] MEDS: POTASSIUM CHLORIDE 10 MEQ ER TABLET 40 MEQ PO (08:51)
[2024-02-20] MEDS: LOSARTAN POTASSIUM 50 MG TABLET PO (08:51)
[2024-02-20] MEDS: ENOXAPARIN SODIUM 40 MG/0.4 ML SYRINGE SUBQ (08:51)
[2024-02-20] MEDS: TAMSULOSIN HCL 0.4 MG CAPSULE PO (08:51)
[2024-02-20] MEDS: AZITHROMYCIN 250 MG TABLET 500 MG PO (08:51)
[2024-02-20] MEDS: OMEPRAZOLE 20 MG CAPSULE.DR PO (08:51)
[2024-02-20] MEDS: CARVEDILOL 6.25 MG TABLET PO (08:52)
[2024-02-20] MEDS: FUROSEMIDE 40 MG/4 ML VIAL IVP (09:07)
--- NOTE | 2024-02-20 09:35 | CM.NOTE ---
Rounds made with Dr. Britt. Plan for discharge today. Mr. Panchal in agreement.
--- NOTE | 2024-02-20 10:01 | P.DS_ITS ---
DS: Providers Provider Date of admission: 02/17/24 12:47 Primary care physician: SERA HOBBS Admitting clinician: Shaikh Balwinder Attending physician on admission: Shaikh Balwinder Consults: 02/17/24 12:07 Physical Therapy Eval and Treat Routine Reason for consultation: Ambulatory dysfunction/weakness Attending physician on discharge: Shaikh Balwinder Discharging clinician: Shaikh Balwinder Anticipated date of discharge: 02/20/24 DS: Diagnosis Discharge Diagnosis (1) Sepsis: Qualifiers: Sepsis type: sepsis due to unspecified organism Sepsis acute organ dysfunction status: without acute organ dysfunction Qualified Code(s): A41.9 - Sepsis, unspecified organism (2) Pneumonia: Qualifiers: Laterality: right Lung location: middle lobe of lung Pneumonia type: due to unspecified organism Qualified Code(s): J18.9 - Pneumonia, unspecified organism (3) Hyponatremia: (4) Hypertension: Qualifiers: Hypertension type: primary hypertension Qualified Code(s): I10 - Essential (primary) hypertension (5) Congestive heart failure: Qualifiers: Heart failure chronicity: acute on chronic Heart failure type: systolic Qualified Code(s): I50.23 - Acute on chronic systolic (congestive) heart failure (6) COPD (chronic obstructive pulmonary disease): Qualifiers: COPD type: COPD with acute lower respiratory infection Qualified Code(s): J44.0 - Chronic obstructive pulmonary disease with (acute) lower respiratory infection (7) CAD (coronary artery disease): Qualifiers: Coronary Disease-Associated Artery/Lesion type: [place] artery [place] vs. transplanted heart: [place] heart Associated angina: without angina Qualified Code(s): I25.10 - Atherosclerotic heart disease of [place] coronary artery without angina pectoris (8) GERD (gastroesophageal reflux disease): Qualifiers: Esophagitis presence: without esophagitis Qualified Code(s): K21.9 - Gastro-esophageal reflux disease without esophagitis (9) BPH (benign prostatic hyperplasia): Qualifiers: Lower urinary tract symptom presence: symptoms absent Qualified Code(s): N40.0 - Benign prostatic hyperplasia without lower urinary tract symptoms DS: Summary Hospital Course Hospital Course: 69-year-old male presented to ER with worsening productive cough, progressive shortness of breath associated with wheezing. He also reported generalized weak ness with body shakes, chills and fever. Upon arrival in ER, he was noted to be febrile with increased work of breathing/tachypnea. He was just discharged a day earlier from the hospital when he presented with systemic inflammatory response but at that time no source of infection was identified. He also did not have any localizing signs and symptoms to suggest respiratory infection on previous admission. This time around, he has evidence of right lower lobe and middle lobe pneumonia on CXR resulting in COPD exacerbation for which patient was admitted for inpatient treatment and monitoring as he has high risk of poor outcome/treatment failure because of his history of COPD/interstitial lung disease and congestive heart failure. Patient was treated with IV rocephin/azithromycin for CAP, IV steroids/duonebs for COPD exacerbation. He developed volume overload during admission likely because of IV hydration and systemic steroids. He was treated with IV lasix for it. Patient showed slow clinical recovery and required continued inpatient treatment as he was experiencing severe/persistent cough and dyspnea on minimal exertion. He is feeling better today. His cough has improved and he reports minimal COYNE. He denies SOB at rest. Patient is medically stable for discharge today on oral abx. He will PO prednisone and albuterol inhaler for his COPD. Patient will benefit from outpatient pulmonary function test. Patient was instructed to follow-up with PCP in 1 to 2 weeks. He was educated and counseled on worrisome signs and symptoms that should prompt him to seek emergency care. Status at Discharge Functional status at discharge: independent ambulation Time Spent with Patient Time attestation: Total time spent providing and/or coordinating discharge services: Time spent: greater than 30 minutes Exam Constitutional Vital Signs, click to edit/add: Last Vital Signs Temp 98.0 F 02/20/24 04:06 Pulse 84 02/20/24 04:12 Resp 20 02/20/24 04:12 BP 152/89 H 02/20/24 04:06 Pulse Ox 94 L 02/20/24 04:12 O2 Del Method Room Air 02/20/24 04:12 General appearance: cooperative and comfortable Respiratory Common normals: no use of accessory muscles Effort & inspection: able to speak in complete sentences Auscultation: wheezes expiratory wheezes Cardio Common normals: regular rate, regular rhythm, S1 normal heart sound and S2 normal heart sound Jugular venous distention: JVD Extremity Common normals: normal to inspection and full ROM Neuro Common normals: oriented x3, no focal motor deficits and no sensory deficits noted Psych Common normals: mental status grossly normal, thought process normal, denies homicidal ideation and denies suicidal ideation DS: Data Data Completed and Pending Labs on day of discharge: Labs from last 24 hours 02/20/24 06:08 WBC 14.2 H RBC 4.58 L Hgb 13.3 L Hct 38.2 L MCV 83.4 MCH 29.0 MCHC 34.8 RDW 14.1 Plt Count 212 MPV 10.4 Neut % (Auto) 81.7 H Lymph % (Auto) 10.6 L [place] % (Auto) 6.8 Eos % (Auto) 0.0 L Baso % (Auto) 0.1 L Neut # (Auto) 11.6 H Lymph # (Auto) 1.5 [place] # (Auto) 1.0 H Eos # (Auto) 0.0 Baso # (Auto) 0.0 Abs Immat Gran (auto) 0.12 H Imm/Tot Granulo (auto) 0.8 H Sodium 132 L Potassium 3.4 L Chloride 97 L Carbon Dioxide 26.6 Anion Gap 11.8 BUN 18.0 Creatinine 1.02 Est GFR ( Amer) >60 Est GFR (Non-Af Amer) >60 BUN/Creatinine Ratio 17.6 Glucose 207 H Calcium 9.0 Total Bilirubin 0.4 AST 16 ALT 28 Alkaline Phosphatase 61 Total Protein 6.4 Albumin 2.9 L Globulin 3.5 Albumin/Globulin Ratio 0.8 Preliminary micro results at discharge 02/18/24 07:25 Sputum Result 1 - Preliminary Sputum - Expectorated Sputum Lower Respiratory Culture - Preliminary Discharge Plan Discharge Disposition: Home, Self-Care Condition: Good Discharge Medications: New prednisone 20 mg tablet 40 mg PO DAILY Qty: 10 0RF cefdinir 300 mg capsule 300 mg PO BID 5 Days Qty: 10 0RF Continued furosemide [Lasix] 40 mg tablet 40 mg PO DAILY Qty: 30 0RF albuterol sulfate [Ventolin HFA] 90 mcg/actuation HFA aerosol inhaler 2 inh inhalation Q6H PRN (Reason: shortness of breath or wheezing) Qty: 6.7 0RF sodium chloride 0.9 % solution for nebulization 3 ml INHALATION BID tamsulosin 0.4 mg capsule 0.4 mg PO DAILY carvedilol 6.25 mg tablet 6.25 mg PO Q12H losartan 50 mg tablet 50 mg PO DAILY omeprazole 20 mg capsule,delayed release(DR/EC) 20 mg PO Q24H ipratropium-albuterol 0.5 mg-3 mg(2.5 mg base)/3 mL solution for nebulization 3 ml inhalation Q6H PRN (Reason: shortness of breath) Qty: 90 0RF sildenafil 100 mg tablet 100 mg PO Q24H PRN (Reason: erectile dysfunction) Activity: increase activity as tolerated Diet: advance to your usual diet Print Language: Khmer Forms: Portal Instructions Follow Up Appointments: Feb.26 @ 10:45am with Dr. Hobbs [phone]
[2024-02-20 10:38] VITALS: PULSE 53; O2SAT 96
[2024-02-20] MEDS: CEFTRIAXONE 1,000 MG in 0.9 % SODIUM CHLORIDE 50 ML 100 MG IV (11:16)
== END 2024-02-20 15:05 | disposition home or self-care (01) | DRG 871 ==
LOC: ER 12:10 → MS 12:51
PROVIDERS: Admitting Provider Internal Medicine; Emergency Provider Emergency Medicine; PCP Internal Medicine; Visit Provider Internal Medicine
DX: A41.9 Sepsis, unspecified organism (principal); J18.9 Pneumonia, unspecified organism; E87.1 Hypo-osmolality and hyponatremia; I50.22 Chronic systolic (congestive) heart failure; J44.0 Chronic obstructive pulmonary disease with (acute) lower respiratory infection; J44.1 Chronic obstructive pulmonary disease with (acute) exacerbation; I11.0 Hypertensive heart disease with heart failure; I25.10 Atherosclerotic heart disease of native coronary artery without angina pectoris; K21.9 Gastro-esophageal reflux disease without esophagitis; N40.0 Benign prostatic hyperplasia without lower urinary tract symptoms; R53.1 Weakness; D72.823 Leukemoid reaction; E66.9 Obesity, unspecified; Z68.35 Body mass index [BMI] 35.0-35.9, adult; Z87.891 Personal history of nicotine dependence; Z79.899 Other long term (current) drug therapy; Z20.822 Contact with and (suspected) exposure to COVID-19
CPT/HCPCS: 36415; 51702; 51798; 71045; 80048; 80053; 81001; 83605; 85007; 85025; 85027; 87040; 87070; 87086; 87811; 93005; 94640; 94667; 94668; 94761; 96365; 96366; 96367; 96372; 96375; 96376; 99285; G0378; J0456; J0696; J1650; J1940; J2919

== ENCOUNTER 2024-06-29 08:20 | Emergency (ER) | payer MEDICARE, OTHER, SELFPAY ==
[2024-06-29 08:24] VITALS: BP 178/82; PULSE 82; TEMP 36.6; O2SAT 96; BMI 36.5
--- NOTE | 2024-06-29 08:37 | ED_ITS ---
HPI - URI/Sore Throat General Chief Complaint: Upper Respiratory Infection Stated Complaint: URTI COMPLAINTS Time Seen by Provider: 06/29/24 08:25 Source: patient History of Present Illness HPI Narrative: The patient is a 69 years old male who have history of COPD, quit smoking 11 years ago, he mentioned that he has been having cough that is productive and runny nose for the last 2 weeks at least, he denies any fever chills, he also denies any exposure to anybody with similar symptoms, the patient did not also try any [id number] medication Related Data Home Medications ?Medication ?Instructions ?Recorded ?Confirmed carvedilol 6.25 mg tablet 6.25 mg PO Q12H 07/22/23 02/17/24 losartan 50 mg tablet 50 mg PO DAILY 07/22/23 02/17/24 omeprazole 20 mg capsule,delayed 20 mg PO Q24H 07/22/23 02/17/24 release tamsulosin 0.4 mg capsule 0.4 mg PO DAILY 07/22/23 02/17/24 sodium chloride 0.9 % for 3 ml inhalation BID 02/15/24 02/17/24 nebulization sildenafil 100 mg tablet 100 mg PO Q24H PRN erectile 02/17/24 02/17/24 dysfunction Previous Rx's ?Medication ?Instructions ?Recorded albuterol sulfate 90 mcg/actuation 2 inh inhalation Q6H PRN shortness 12/25/23 aerosol inhaler (Ventolin HFA) of breath or wheezing #6.7 grams furosemide 40 mg tablet (Lasix) 40 mg PO DAILY #30 tabs 12/25/23 ipratropium 0.5 mg-albuterol 3 mg 3 ml inhalation Q6H PRN shortness 02/02/24 (2.5 mg base)/3 mL nebulization of breath #90 mL soln azithromycin 250 mg tablet See Rx Instructions PO .COMPLEX #6 06/29/24 (Zithromax Z-Santos) tabs guaifenesin 600 mg tablet, 600 mg PO BID PRN cough #14 tabs 06/29/24 extended release 12 hr (Mucinex) prednisone 50 mg tablet 50 mg PO DAILY 5 days #5 tabs 06/29/24 Allergies Allergy/AdvReac Type Severity Reaction Status Date / Time codeine Allergy Intermediate Hallucinati Verified 02/17/24 10:37 ng Review of Systems ROS Status of ROS 10 or more systems reviewed and unremark able except as noted in history and below [facility] Medical History (Updated 06/29/24 @ 08:40 by Susana Ling MD) Pneumonia due to COVID-19 virus ?U07.1 - COVID-19 (ICD-10) ?J12.82 - Pneumonia due to coronavirus disease 2019 (ICD-10) COVID-19 ?U07.1 - COVID-19 (ICD-10) Acute on chronic congestive heart failure ?I50.9 - Heart failure, unspecified (ICD-10) COPD exacerbation ?J44.1 - Chronic obstructive pulmonary disease with (acute) exacerbation (ICD-10) Congestive heart failure ?I50.9 - Heart failure, unspecified (ICD-10) BPH (benign prostatic hyperplasia) ?N40.0 - Benign prostatic hyperplasia without lower urinary tract symptoms (ICD-10) CAD (coronary artery disease) ?I25.10 - Atherosclerotic heart disease of [place] coronary artery without angina pectoris (ICD-10) GERD (gastroesophageal reflux disease) ?K21.9 - Gastro-esophageal reflux disease without esophagitis (ICD-10) Hypertension ?I10 - Essential (primary) hypertension (ICD-10) COPD (chronic obstructive pulmonary disease) ?J44.9 - Chronic obstructive pulmonary disease, unspecified (ICD-10) Bronchitis ?J40 - Bronchitis, not specified as acute or chronic (ICD-10) Emphysema of lung ?J43.9 - Emphysema, unspecified (ICD-10) Heart attack ?I21.9 - Acute myocardial infarction, unspecified (ICD-10) COPD exacerbation ?J44.1 - Chronic obstructive pulmonary disease with (acute) exacerbation (ICD-10) COVID-19 ?U07.1 - COVID-19 (ICD-10) Surgical History H/O sinus surgery ?Z98.890 - Other specified postprocedural states (ICD-10) H/O shoulder surgery ?Z98.890 - Other specified postprocedural states (ICD-10) H/O heart artery stent ?Z95.5 - Presence of coronary angioplasty implant and graft (ICD-10) Family History Aunt Family history of cancer Mother Family history of diabetes mellitus Brother Family history of hypertension Father Family history of hypertension Social History Within the past year, how often did you have a drink containing alcohol: never Score interpretation: A score less than 4 is consistent with normal alcohol consumption. Smoking status: Former smoker Non-prescribed substance use: denies use Previous occupational history: [employer] Known occupational exposures/hazards: No Highest level of school completed/degree received: high school graduate Are you now , , , , never or living with a partner: In a typical week, how many times do you talk on the telephone with family, friends, or neighbors: 3 or more times per week How often do you get together with friends or relatives: 3 or more times per week How often do you attend jew or oriental orthodox services: never Little interest or pleasure in doing things: not at all Feeling down, depressed, or hopeless: not at all Feel stressed/tense/nervous/anxious/difficulty sleeping: not at all Do you think of yourself as: straight/heterosexual Gender Identity: male Exam Narrative Exam Narrative: Nurses notes and vital signs reviewed and patient is not hypoxic. General: Well-appearing and in no apparent distress. Skin: Warm, dry, no pallor noted. No rash. Head: Normocephalic, atraumatic. Neck: Supple, non-tender. Eye: Pupils are equal, round and EOMI. No scleral icterus. Ears, Nose, Mouth, and Throat: TM are clear, no nasal mucosal hypertrophy. Oral mucosa is moist, no posterior oropharynx erythema, uvula is mid-line Cardiovascular: Regular Rate and Rhythm without murmur, gallop or rub. Respiratory: No accessory muscle use or respiratory distress. Lungs distant breathing sounds and expiratory wheezes with coughing Chest Wall: no tenderness Back: No midline thoracic or lumbar vertebral tenderness. No CVA tenderness Musculoskeletal: normal ROM, no calf or popliteal tenderness, no lower extremity edema/swelling GI: Abdomen is soft, non-distended. Normal bowel sounds. No masses appreciated. No tenderness to palpation. No rebound, guarding, or rigidity noted. Neurological: A&O x4. No cranial nerve dysfunction observed. No truncal ataxia. Moves all extremities. Sensation intact. Psychiatric: Cooperative and interactive. Normal mood and affect. Constitutional Vital Signs, click to edit/add: Last Vital Signs Temp 98 F 06/29/24 08:24 Pulse 82 06/29/24 08:24 Resp 18 06/29/24 08:24 BP 178/82 H 06/29/24 08:24 Pulse Ox 96 06/29/24 08:24 O2 Del Method Room Air 06/29/24 08:24 Course Vital Signs Vital signs: Vital Signs Temperature 98 F 06/29/24 08:24 Pulse Rate 82 06/29/24 08:24 Respiratory Rate 18 06/29/24 08:24 Blood Pressure 178/82 H 06/29/24 08:24 Pulse Oximetry 96 06/29/24 08:24 Oxygen Delivery Method Room Air 06/29/24 08:24 Temperature 98 F 06/29/24 08:24 Pulse Rate 82 06/29/24 08:24 Respiratory Rate 18 06/29/24 08:24 Blood Pressure 178/82 H 06/29/24 08:24 Pulse Oximetry 96 06/29/24 08:24 Oxygen Delivery Method Room Air 06/29/24 08:24 MDM - URI/Sore Throat MDM Narrative Medical decision making narrative: The patient presented to us with a possible COPD exacerbation mostly secondary to a viral infection He was started in the ER on prednisone and Z-Santos Also provided with a breathing treatment Patient was instructed to come back in case of any worsening of his symptoms He have no difficulty breathing and he have a normal stable vitals here in the ER The patient is to follow up with primary care physician in next 2-3 days or to return to the emergency department should any of the signs or symptoms worsen or new symptoms develop. The patient agrees with the following Diagnosis and Treatment plan and the patient will be discharged home. Discharge Plan Discharge Chief Complaint: Upper Respiratory Infection Clinical Impression: COPD exacerbation Patient Disposition: Home, Self-Care Time of Disposition Decision: 08:40 Condition: Good Prescriptions / Home Meds: New azithromycin [Zithromax Z-Santos] 250 mg tablet See Rx Instructions .ROUTE .COMPLEX Qty: 6 0RF Rx Instructions: For 250 mg dose pack: take 500 mg today (day 1), then 250 mg for 4 days (days 2-5) prednisone 50 mg tablet 50 mg PO DAILY 5 Days Qty: 5 0RF guaifenesin [Mucinex] 600 mg tablet extended release 12hr 600 mg PO BID PRN (Reason: cough) Qty: 14 0RF No Action furosemide [Lasix] 40 mg tablet 40 mg PO DAILY Qty: 30 0RF albuterol sulfate [Ventolin HFA] 90 mcg/actuation HFA aerosol inhaler 2 inh inhalation Q6H PRN (Reason: shortness of breath or wheezing) Qty: 6.7 0RF sodium chloride 0.9 % solution for nebulization 3 ml INHALATION BID tamsulosin 0.4 mg capsule 0.4 mg PO DAILY carvedilol 6.25 mg tablet 6.25 mg PO Q12H losartan 50 mg tablet 50 mg PO DAILY omeprazole 20 mg capsule,delayed release(DR/EC) 20 mg PO Q24H ipratropium-albuterol 0.5 mg-3 mg(2.5 mg base)/3 mL solution for nebulization 3 ml inhalation Q6H PRN (Reason: shortness of breath) Qty: 90 0RF sildenafil 100 mg tablet 100 mg PO Q24H PRN (Reason: erectile dysfunction) Print Language: Dominican Instructions: COPD (Chronic Obstructive Pulmonary Disease) (ED) Referrals: SERA FLOWER [Primary Care Provider] - 1 week
--- OUTSIDE RECORDS SUMMARY | 2024-06-29 08:39 | XMS_ITS | CCD ---
Author Organization [facility] Care Team Providers Care Slider Assembler Name Role Phone Sera Flower Unavailable Unavailable Unavailable Unavailable Primary Care Provider Unavailabl e Unavailable Unavailable DEANDRA BENDER Attending Unavailable DEANDRA BENDER Referring Unavailable MAU RANDLE Attending Unavailable DEANDRA BENDER Attending Unavailable DEANDRA BENDER Attending Unavailable DEANDRA BENDER Referring Unavailable MD Sera Flower Primary Care Provider [phone] MD Sera Flower Other Provider MD Rene Cortez Attending Provider Dr. Sera Flower Primary Care Unavailab Rene Nobles Referring Unavailable Ching, Dr. Sera Frost Primary Care Unavailab Rene Nobles Attending Unavailable Dr. Sera Flower Primary Care Unavailab Rene Nobles Attending Unavailable Ching, Dr. Sera Frost Primary Care Unavailab Rene Nobles Attending Unavailable Sera Flower MD Primary Care Provider MD Srea Flower Primary Care Provider [phone] DO Jasper Gross Emergency Provider Jasper Gross Admitting Unavailable Jasper Gross Attending Unavailable Sera Flower Primary Care Unavailable Rene Cortez Attending Unavailable Sera Flower Primary Care Unavailable Sera Flower Consulting Unavailable Rene Cortez Admitting Unavailable Sera Flower MD Unavailable Sera Flower MD Primary Care Provider [phone] Indira CAMACHO, Tootie Unavailable Rene Cortez MD Unavailable Indira CAMACHO, Tootie Unavailable Sera Flower Primary Care Physician Unavailab SU Keith Attending Unavailable SU COOK Attending Unavailable SU COOK Attending Unavailable SU COOK Admitting Unavailable ESRA FLOWER Referring Unavailable SU COOK Attending Unavailable Orquidea Carreon RN Unavailable [phone] RENZO WEAVER Attending Unavailable CHING, SERA Jimenez Referring Unavailable RISMARIOLA, SALLY Cates Attending Unavailable BEAR, HOSEA Garcia Attending Unavailable CHING, SERA Jimenez Attending Unavailable CHING, SERA Jimenez Referring Unavailable CHING, SERA Jimenez Attending Unavailable BENJY ALAS Attending Unavailable BRITTANY FIGUEROA Attending Unavailable RISMARIOLA, SALLY Cates Attending Unavailable CHING, SERA Jimenez Referring Unavailable CHING, SERA Jimenez Attending Unavailable CHING, SERA Jimenez Referring Unavailable GURJIT BUSBY Attending Unavailable RENE CORTEZ Attending Unavailable RENE CORTEZ Referring Unavailable SERA FLOWER Primary Care Unavailable RENE CORTEZ Attending Unavailable RENE CORTEZ Referring Unavailable SERA FLOWER Primary Care Unavailable John BAPTISTE Attending Unavailable SU COOK Attending Unavailable SU COOK Admitting Unavailable Allergies Allergy Classification Reported Allergen(s) Allergy Type Date of Onset Reaction(s) Facility (20 sources) Codeine; Translations: [codeine] Drug Allergy 6 Vomiting, Unknown, Nausea And Vomiting, Other, Unknown (qualifier value) [facility] (6 sources) Codeine / guaiFENesin; Translations: [CODEINE-GUAIFEN ESIN] Drug Allergy 1 Other: See Comments [facility] (6 sources) guaiFENesin; Translations: [GUAIFENESIN] Drug Allergy 3 Other: See Comments [facility] (1 source) Codeine Drug Allergy 4 [facility] (11 sources) guaiFENesin Drug Allergy 3 Other [facility] Medications Current Medications Medication Drug Class(es) Dates Sig (Normalized) Sig (Original) Albuterol (20 sources) beta2-Adrenergic Agonist Start: 04-16-2024 albuterol Start Date: 04/16/24 Status: Ordered Start: 07-11-2023 albuterol (2.5 MG/3ML) 0.083% nebulizer solution Indications: Chronic obstructive pulmonary disease, unspecified COPD type (CMS/HCC) Take 3 mL (2.5 mg) by nebulization every 8 (eight) hours 810 mL 3 07/11/2023 Active Start: 06-21-2023 albuterol (2.5 MG/3ML) 0.083% nebulizer solution Indications: Chronic obstructive pulmonary disease, unspecified COPD type (CMS/HCC) Take 3 mL (2.5 mg) by nebulization every 8 (eight) hours 75 mL 3 06/21/2023 Active Start: 06-14-2023 take 2.5 mg by inhal ation every four to six hours Albuterol Sulfate Active 2.5 MG INHALATION EVERY 4-6 HOURS June 14, 2023 12:00am Start: 11-07-2021 take 2 puff(s) by in halation every six hours for wheezing albuterol HFA 90 mcg/act inhaler Indications: Chronic obstructive pulmonary disease, unspecified COPD type (CMS/HCC) Inhale 2 puffs every 6 (six) hours if needed for wheezing or shortness of breath 18 g 3 07/09/2023 Active Start: 04-26-2018 End: 07-28-2019 take 2.5 mg by inhalation every four hours Albuterol Sulfate Discontinued 2.5 MG INHALATION Q4H April 26, 2018 12:00am July 28, 2019 6:51am Start: 09-19-2017 take 2.5 mg by inhal ation every six hours Albuterol Sulfate Active 2.5 MG INHALATION Q6H September 18, 2017 11:00pm amoxicillin 875 mg / clavulanate 125 mg oral tablet (2 sources) Penicillin-class Antibacterial Start: 05-07-2024 End: 05-14-2024 take 1 tablet by mouth in the morning amoxicillin-clavulanate (Augmentin) 875-125 MG tablet Indications: Non-recurrent acute serous otitis media of right ear Take 1 tablet (875 mg) by mouth in the morning and 1 tablet (875 mg) before bedtime. Do all this for 7 days. 14 tablet 05/07/2024 05/14/2024 Active ascorbic acid 60 mg / beta carotene 5000 unt / copper sulfate 40 mg / dl-alpha tocopheryl acetate 30 unt / sodium selenite 0.04 mg / zinc oxide 40 mg oral tablet (11 sources) Vitamin C take 1 tablet by mouth in the morning Multiple Vitamin (Multivitamin Adult) tablet Take 1 tablet by mouth in the morning. Active aspirin 81 mg oral tablet (16 sources) Platelet Aggregation Inhibitor, Nonsteroidal Anti-inflammatory Drug Start: 07-28-2019 take 81 mg by mouth once daily [...] tablet (19 sources) HMG-CoA Reductase Inhibitor Start: End: 4 take 1 tablet by mouth [...] anand 0.25-0.4 % 1 Drop (FLURESS) benzonatate 100 mg oral capsule (12 sources) Non-narcotic Antitussive Start: 02-21-2024 take 1 capsule by mouth three times daily as needed for cough benzonatate (Tessalon) 100 MG capsule Indications: Acute cough Take 1 capsule (100 mg) by mouth 3 (three) times a day as needed for cough Do not crush or chew. 30 capsule 1 02/21/2024 Active Start: 06-14-2023 take 200 mg by mouth three times daily Benzonatate Active 200 MG PO Three times daily June 14, 2023 12:00am Start: 01-17-2022 take 1 capsule by mo uth three times daily for cough benzonatate (TESSALON [...] inhaler (2 sources) Corticosteroid, beta2-Adrenergic Agonist Start: 07-28-19 take 1 puff(s) by inhalation every twelve hours Budesonide-Formotero l Active 2 PUFF INHALATION Q12H July 28, 2019 12:00am 120 actuat budesonide 0.16 mg/actuat / formoterol fumarate 0.0048 mg/actuat / glycopyrrolate 0.009 mg/actuat metered dose inhaler (5 sources) Corticosteroid, beta2-Adrenergic Agonist Start: 09-05-19 End: 02-27-20 Jarrod Aerosphere 160-9-4.8 MCG/ACT aerosol 09/05/2023 02/27/2024 Discontinued carvedilol 6.25 mg oral tablet (20 sources) alpha-Adrenergic Paras, beta-Adrenergic Paras Start: 06-27-19 End: 12-06-19 take 1 tablet by mouth twice daily carvedilol 6.25 mg Tab 6.25 mg = 1 tab(s), Oral, BID Start Date: 04/16/24 Status: Ordered Start: 04-25-2021 carvedilol (CO REG) 6.25 mg tablet Start: 06-28-2020 End: 05-15-2024 take 0.5 tablet by mouth twice daily carvedilol (Coreg) 12.5 mg tablet Take 0.5 tablets (6.25 mg) by mouth 2 times a day. 06/28/2020 05/15/2024 Discontinued (Therapy completed) Start: 04-26-2018 take 12.5 mg by mout h twice daily Carvedilol Active 12.5 MG PO Twice daily April 26, 2018 12:00am cholecalciferol 0.025 mg oral tablet (20 sources) Vitamin D Start: 07-28-2019 take 1 tablet by mouth once daily Cholecalciferol (Vitamin D3) (Vitamin D3) 25 mcg (1,000 unit) Tablet Active 1000 UNIT PO Daily July 28, 2019 12:00am take 1 tablet by mouth once gretchen y cholecalciferol (Vitamin D-3) 50 MCG (2000 UT) tablet Take 1 tablet (50 mcg) by mouth once daily. Active ciprofloxacin 500 mg oral tablet (6 sources) Quinolone Antimicrobial Start: 04-28-2024 Cipro 500 mg Tab See Instructions, Take 1 tab day prior to procedure and 1 tab day of procdure - afterwards, # 2 tab(s), Refills(s) 0, Pharmacy: [id number], 172, cm, 04/28/24 12:04:00 EST, Height/Length Dosing, 111.5, kg, 04/28/24 12:04:00 EST, Weight Dosing Start Date: 04/28/24 Status: Ordered Start: 04-16-2024 End: 04-30-2024 take 1 tablet by mouth every twelve hours Cipro 500 mg Tab 500 mg = 1 tab(s), Oral, q12hr, X 14 day(s), # 28 tab(s), Refills(s) 0, Pharmacy: [id number], 172, cm, 04/16/24 9:51:00 EST, Height/Length Dosing, 108.1, kg, 04/16/24 9:51:00 EST, Weight Dosing Start Date: 04/16/24 Stop Date: 04/30/24 Status: Ordered doxycycline hyclate 100 mg oral tablet (6 sources) Tetracycline-class Drug Start: 06-14-2023 take 100 mg by mouth twice daily Doxycycline Hyclate Active 100 MG PO Twice daily 10 June 14, 2023 12:00am Start: 01-17-2022 doxycycline hy clate (VIBRAMYCIN) 100 mg capsule Fish Oils (17 sources) take 1 capsule by mo uth once daily omega-3 (fish oil) 1200 MG capsule Take 1 capsule by mouth 1 (one) time each day. Active take 1 capsule by mouth once aniceto ly omega-3 (fish oil) 1200 MG capsule Take 1 capsule by mouth 1 (one) time each day. 0 Active Fish Oil 1200 MG Oral Capsule TAKE DIRECTED. Quantity: 0 Refills: 0 Ordered: 07-Sep-2022 DO Active fluticasone propionate 0.05 mg/actuat metered dose nasal spray (9 sources) Corticosteroid Start: 07-25-2023 take 2 spray(s) nasal route once daily fluticasone (Flonase) 50 MCG/ACT nasal spray Administer 2 sprays into each nostril Daily 07/25/2023 Active 30 actuat fluticasone furoate 0.1 mg/actuat / umeclidinium 0.0625 mg/actuat / vilanterol 0.025 mg/actuat dry powder inhaler (9 sources) Anticholinergic, Corticosteroid, beta2-Adrenergic Agonist Start: 07-25-2023 take 1 puff(s) by inhalation once daily Fluticasone-Umeclidin -Vilant (Trelegy Ellipta) 100-62.5-25 MCG/ACT aerosol powder Inhale 1 puff 1 (one) time each day 07/25/2023 Active furosemide 40 mg oral tablet (10 sources) Loop Diuretic Start: 01-23-2024 End: 05-15-2024 take 1 tablet by mouth once daily furosemide (Lasix) 40 MG tablet Indications: Essential hypertension (CMS/HCC) Take 1 tablet (40 mg) by mouth Daily 90 tablet 2 01/23/2024 Active hydroCHLOROthiazide 25 mg oral tablet (12 sources) Thiazide Diuretic Start: 10-11-2020 hydroCHLOROthiazide (HYDRODIURIL, [...] (20 sources) Angiotensin 2 Receptor Paras Start: 3 take 1 tablet by mouth once daily losartan 50 mg Tab 50 mg = 1 tab(s), Oral, Daily Start Date: 04/16/24 Status: Ordered Start: 08-15-2021 End: 10-18-2023 take 1 tablet by mouth twice daily losartan (Cozaar) 25 mg tablet Take 1 tablet (25 mg) by mouth 2 times a day. 09/05/2021 10/18/2023 Discontinued (Dose adjustment) Start: 04-26-2018 take 25 mg by mouth once daily Losartan Active 25 MG PO Daily April 26, 2018 12:00am magnesium oxide 250 mg oral tablet (14 sources) take 1 tablet by mouth once daily magnesium oxide (Mag-Ox) 250 mg magnesium tablet Take 1 tablet (250 mg) by mouth once daily. Active Multivitamin preparation (5 sources) Start: 07-28-2019 take 1 tablet by [...] 08/24/2006 Active nitroglycerin 0.4 mg sublingual tablet (20 sources) Nitrate Vasodilator Start: 05-15-2024 End: 06-14-2024 nitroglycerin (Nitrostat) 0.4 mg SL tablet Indications: Coronary artery disease involving [place] coronary artery of [place] heart without angina pectoris Place 1 tablet (0.4 mg) under the tongue every 5 minutes if needed for chest pain. May repeat dose every 5 minutes for up to 3 doses total. 25 tablet 11 05/15/2024 06/14/2024 Active End: 03-23-2023 nitroglycerin (Nitrostat) 0. [address] 0.4 mg under the tongue every 5 (five) minutes if needed for chest pain. Active Comment on above: Dissolve under the t ongue. omega-3 fatty acids-fish oil (One-Per-Day Mccleary-3) 684-1,200 mg capsule (3 sources) omega-3 fatty ac ids-fish oil (One-Per-Day Mccleary-3) 684-1,200 mg capsule Take as directed Active omega-3 fatty ac ids-fish oil (One-Per-Day Mccleary-3) 684-1,200 mg capsule Take as directed 0 Active omeprazole 20 mg delayed release oral capsule (20 sources) Proton Pump Inhibitor Start: 03-24-2024 take 1 capsule by mouth once daily omeprazole 20 mg Cap-DR 20 mg = 1 cap(s), Oral, Daily Start Date: 04/16/24 Status: Ordered Start: 08-15-2021 End: 03-22-2024 omeprazole (PriLOSEC) [address] capsule Indications: Gastroesophageal reflux disease without esophagitis TAKE 1 CAPSULE DAILY 90 capsule 3 12/06/2023 03/22/2024 Discontinued (Reorder) Start: 04-26-2018 take 20 mg by mouth [...] 6:55am administer with food or milk rosuvastatin 40 mg oral capsule (18 sources) HMG-CoA Reductase Inhibitor Start: 04-16-2024 take 40 mg by mouth once daily rosuvastatin 40 mg, Oral, Daily Start Date: 04/16/24 Status: Ordered Start: 10-18-2023 End: 10-17-2024 take 1 tablet by mouth once daily rosuvastatin (Crestor) 40 mg tablet Indications: Coronary artery disease involving [place] coronary artery of [place] heart without angina pectoris , Mixed hyperlipidemia Take 1 tablet (40 mg) by mouth once daily. 90 tablet 3 10/18/2023 10/17/2024 Active Start: 07-28-2019 take 20 mg by mouth once daily Rosuvastatin Active 20 MG PO Daily July 28, 2019 12:00am sildenafil 100 mg oral tablet (20 sources) Phosphodiesterase 5 Inhibitor Start: 11-05-2023 sildenafil (Viagra) 100 MG tablet Indications: Benign prostatic hyperplasia without urinary obstruction Take 1 tablet (100 mg) by mouth if needed for erectile dysfunction 10 tablet 2 11/05/2023 Active Start: 07-28-2019 End: 03-23-2023 take 100 mg by mouth once daily Sildenafil Active 100 MG PO Daily July 28, 2019 12:00am tamsulosin hydrochloride 0.4 mg oral capsule (20 sources) alpha-Adrenergic Paras Start: 04-16-2024 End: 04-11-2025 take 2 capsules by mouth once daily tamsulosin 0.4 mg Cap 0.8 mg = 2 cap(s), Oral, Daily, X 30 day(s), # 60 cap(s), Refills(s) 11, Pharmacy: [id number], 172, cm, 04/16/24 9:51:00 EST, Height/Length Dosing, 108.1, kg, 04/16/24 9:51:00 EST, Weight Dosing Start Date: 04/16/24 Stop Date: 04/11/25 Status: Ordered Start: 03-24-2024 take 1 capsule by [facility] once daily tamsulosin (Flomax) 0.4 MG 24 hr capsule Indications: Benign prostatic hyperplasia without urinary obstruction Take 1 capsule (0.4 mg) by mouth Daily 90 capsule 3 03/24/2024 Active Start: 12-20-2023 End: 03-22-2024 take 1 capsule by mouth once daily tamsulosin (Flomax) 0.4 MG 24 hr capsule Indications: Benign prostatic hyperplasia without urinary obstruction Take 1 capsule (0.4 mg) by mouth Daily 90 capsule 3 12/20/2023 03/22/2024 Discontinued (Reorder) Start: 06-28-2020 take 2 capsules by m outh once daily tamsulosin (Flomax) 0.4 mg 24 [...] acetonide 0.055 mg/actuat metered dose nasal spray (11 sources) Corticosteroid take 1 spray(s) nasal route in the morning triamcinolone (Nasacort Allergy 24HR) 55 MCG/ACT nasal inhaler Administer 1 spray into each nostril in the morning. Active tropicamide 10 mg/ml ophthalmic solution (1 source) Anticholinergic Start: 2 End: 2 tropicamide 1 % 1 Drop (MYDRIACYL) vitamin b12 1 mg oral capsule (2 sources) Vitamin B12 Start: 0 take 1000 ug by mouth once daily Cyanocobalamin (Vitamin B-12) Active 1000 MCG PO Daily July 28, 2019 12:00am vitamin e 180 mg oral capsule (20 sources) Start: 7 take 400 [IU] by mouth once daily Vitamin E Active 400 UNIT PO Daily July 28, 2019 12:00am take 1 capsule by mouth in the m orning alpha tocopherol (Vitamin E) 400 units capsule Take 400 Units by mouth in the morning. Active take 1 tablet by mouth once gretchen y Vitamin E 400 UNIT Oral Tablet TAKE 1 TABLET DAILY. Quantity: 0 Refills: 0 Ordered: 07-Sep-2022 DO Active Comment on above: Take 1 tablet by swetha once daily. zinc gluconate 30 mg oral tablet (20 sources) take 1 tablet by mouth once daily zinc gluconate 30 mg tablet Take 1 tablet (30 mg) by mouth once daily. Active Zinc Gluconate 3 0 mg tab Take by mouth q 24 HR. 0 Active Comment on above: Take by mouth q 24 H R. Completed/Discontinued Medications Medication Drug Class(es) Dates Sig (Normalized) Sig (Original) ezetimibe 10 mg oral tablet (17 sources) Dietary Cholesterol Absorption Inhibitor Start: 08-18-2019 [...] mg by inhalation every eight hours Ipratropium [place] Discontinued 0.5 MG INHALATION Q8H April 26, [...] 0 Refills: 0 Ordered: 07-Sep-2022 DO Active Mccleary 3 CAPS (2 sources) Mccleary 3 CAPS MARLEN E DIRECTED. Quantity: 0 [...] Classification Problem Date Documented Date Episodic/Chronic Asthma (11 sources) Asthma; Translations: [Unspecified asthma, uncomplicated] Onset: 03-14-2023 03-14-2023 Chronic Blindness and vision defects (1 source) Bilateral hyperopia of eyes; Translations: [Hypermetropia, bilateral] Episodic Chronic obstructive pulmonary disease and bronchiectasis (20 sources) Acute exacerbation of chronic asthmatic bronchitis; Translations: [Chronic obstructive pulmonary disease with (acute) exacerbation] Onset: 03-14-2023 09-19-2017 Chronic Congestive heart failure; nonhypertensive (20 sources) Congestive heart failure; Translations: [Heart failure, unspecified] Onset: 03-14-2023 03-14-2023 Chronic Coronary atherosclerosis and other heart disease (20 sources) Coronary arteriosclerosis; Translations: [Coronary atherosclerosis of unspecified type of vessel, [place] or graft] Onset: 01-03-2023 03-23-2023 Chronic Disorders of lipid metabolism (20 sources) Hyperlipidemia; Translations: [Other and unspecified hyperlipidemia] Onset: 01-03-2023 03-23-2023 Chronic Esophageal disorders (20 sources) Gastroesophageal reflux disease; Translations: [Esophageal reflux] Onset: 02-13-2023 02-13-2023 Chronic Essential hypertension (20 sources) Essential hypertension; Translations: [Unspecified essential hypertension] Onset: 01-03-2023 03-23-2023 Chronic Fluid and electrolyte disorders (2 sources) Hyponatremia; Translations: [Hypo-osmolality and hyponatremia] 02-22-2024 Episodic Genitourinary symptoms and ill-defined conditions (5 sources) Retention of urine; Translations: [Retention of urine, unspecified] Onset: 04-16-2024 Episodic Hyperplasia of prostate (20 sources) Benign prostatic hypertrophy without outflow obstruction; Translations: [Benign prostatic hyperplasia without lower urinary tract symptoms] Onset: 03-14-2023 03-14-2023 Chronic Inflammatory conditions of male genital organs (4 sources) Chronic prostatitis; Translations: [Chronic prostatitis] Onset: 04-16-2024 Chronic Malaise and fatigue (2 sources) Asthenia; Translations: [Weakness] 10-15-2020 Episodic Other endocrine disorders (16 sources) Testicular hypofunction; Translations: [Testicular hypofunction] Onset: [...] Episodic Other nutritional; endocrine; and metabolic disorders (13 sources) Obesity; Translations: [Obesity, unspecified] Onset: 02-13-2023 03-23-2023 Chronic Other nutritional; endocrine; and metabolic disorders (2 sources) Morbid obesity; Translations: [Morbid (severe) obesity due to excess calories] Onset: 03-14-2023 03-14-2023 Chronic Other nutritional; endocrine; and metabolic disorders (2 sources) Body mass index 30+ - obesity; Translations: [Body mass index (BMI) 36.0-36.9, adult] Onset: 05-15-2024 05-15-2024 Chronic Other nutritional; endocrine; and metabolic disorders (1 source) Obese class II; Translations: [Class 2 obesity] 05-15-2024 Chronic Other nutritional; endocrine; and metabolic disorders (2 sources) Body mass index (BMI) 36.0-36.9, adult; Translations: [Body mass index (BMI) 36.0-36.9, adult] Onset: 05-15-2024 Chronic Other nutritional; endocrine; and metabolic disorders (2 sources) Obesity, unspecified; Translations: [Obesity, unspecified] Onset: 03-23-2023 Chronic Other nutritional; endocrine; and metabolic disorders (2 sources) Body mass index (BMI) 35.0-35.9, adult; Translations: [Body mass index (BMI) 35.0-35.9, adult] Onset: 03-23-2023 Chronic Other screening for suspected conditions (not mental disorders or infectious disease) (12 sources) History of adenomatous polyp of colon; Translations: [Encounter for screening for malignant neoplasm of colon] Onset: 04-16-2024 07-28-2019 Episodic Other upper respiratory disease (2 sources) Nasal sinus problem; Translations: [Other specified disorders of nose and nasal sinuses] 03-30-2024 Episodic Other upper respiratory infections (11 sources) Chronic sinusitis; Translations: [Chronic sinusitis, unspecified] Onset: 03-14-2023 03-14-2023 Chronic Otitis media and related conditions (2 sources) Acute non-suppurative otitis media - serous; Translations: [Acute serous otitis media, right ear] 05-07-2024 Episodic Pneumonia (except that caused by tuberculosis or sexually transmitted disease) (4 sources) Right middle zone pneumonia; Translations: [Pneumonia, unspecified organism] 02-22-2024 Episodic Septicemia (except in labor) (2 sources) Sepsis; Translations: [Sepsis, unspecified organism] 02-22-2024 Episodic Past or Other Problems Problem Classification Problem Date Documented Da te Episodic/Chronic Coronary atherosclerosis and other heart disease (2 sources) Presence of coronary angioplasty implant and graft; Translations: [Presence of coronary angioplasty implant and graft] Onset: 02-13-2023 Episodic Diabetes mellitus without complication (11 sources) Prediabetes; Translations: [Prediabetes] Onset: 09-20-2023 09-20-2023 Episodic Mood disorders (9 sources) Mood disorders Onset: 09-20-2023 09-20-2023 Other nervous system disorders (1 source) Clonic hemifacial spasm, right; Translations: [Clonic hemifacial spasm, right] Onset: 08-08-2022 Episodic Other upper respiratory disease (11 sources) Polyp of nasal sinus; Translations: [Other polyp of sinus] Onset: 03-14-2023 03-14-2023 Episodic Screening and history of mental health and substance abuse codes (20 sources) Ex-smoker; Translations: [Personal history of tobacco use] Onset: 02-13-2023 02-13-2023 Episodic Comment on above: QUIT IN 1984; Unclassified (12 sources) Onset: 03-23-2023 Resolved: 05-15-2024 03-23-2023 Viral infection (13 sources) Disease caused by 2019-nCoV; Translations: [COVID-19] Onset: 03-14-2023 10-15-2020 Episodic Results Test Name Value Interpretation Reference Range Facility Urology Office/Clinic Noteon 06-23-2024 Urology Office/Clinic Note Urology Office/Clinic Note Chief Complaint Cysto HPI Staff Cysto ABX TAKEN History of Present Illness Tests reviewed: I have reviewed the previous health record information and history for this patient from [facility]. I have reviewed and verified the staff HPI to be accurate for this encounter. Review of Systems PHQ Score Initial Depression Screen Score: 0 SCORE ROS - Provider Constitutional: denies weight loss, denies hot flashes. Eyes: denies eye problems. Gastrointestinal: denies nausea, denies vomiting. Cardiovascular: denies chest pain or angina. Integumentary: no dryness Musculoskeletal: denies musculoskeletal symptoms. ENMT: denies otolaryngeal symptoms. Respiratory: no shortness of breath. Heme/Lymph: denies easy bleeding tendency, denies easy bruising tendency. Psychiatric: no confusion, no anxiety. Genitourinary: See HPI. Physical Exam Vitals & Measurements RR: 16 HT: 68 in HT: 172 cm WT: 111.5 kg WT: 245.815 lb BMI: 37.69 General Appearance: alert, no distress, well nourished, well developed male. Procedure Operative Information Anesthesia Type: Local Procedure: Local Cystoscopy Complications: None Surgical risks, benefits, details of the procedure have been explained to the patient. Full informed consent has been obtained. Intraoperative Information Prepped: Patient is brought back to the endoscopy suite. Patient is placed in supine position. Patient prepped in the usual fashion with Betadine solution. 2% Xylocaine Jelly is placed per Urethra. After waiting several minutes, the Cystoscope is introduced. The Urethra is: Normal The Prostatic Urethra is: _~4.5 cm long prostate, latera lobe hypertrophy. A bit of a median lobe. Sulcus on the left side. The Bladder: _Retained urine, no tumors or stones, Trabeculated: Severe (3) The Ureteral orifices: Show efflux of clear urine Specimens Removed: None Removal: Cystoscope is removed. The patient tolerated it well. Postoperative Information Patient is discharged home with antibiotic coverage. Follow up arranged. Assessment/Plan 1. BPH with obstruction/lower urinary tract symptoms (N40.1: Benign prostatic hyperplasia with lower urinary tract symptoms) Pt had IO cysto today wo complications to eval candidacy for prostate procedures. Taking Flomax 0.4 mg bid. Discussed different treatment options for bladder outlet obstruction including oral medications, operative interventions such as TURP, versus less invasive options such as Rezum or Urolift, based on prostate size and shape. R/Bs of options discussed. Educational pamphlets provided. Would require cysto to eval candidacy for prostate procedures. Pt elects urolift. Will schedule Urolift. The procedural risks, benefits, details, and treatment alternatives have been discussed with the patient. These include bleeding, infection, continued problems urinating, increased frequency with urgency during the healing process, painful urination, need for indwelling catheter after the procedure, and the need for additional procedures in the future, among others. The risk of penile erection problems and urinary leakage is less after this procedure than some others, but could still occur. Full informed consent has been obtained. Will order Local anesthesia. 2. Urinary retention (R33.9: Retention of urine, unspecified) PVR (cc): 04/16/24 - 413 initially, repeat 204 repeat at end of ov after voiding again 04/28/24 - 208 -Cont monitoring with PVRs 3. Elevated PSA (R97.20: Elevated prostate specific antigen [PSA]) PSA: 07/29/21 - 2.33 09/14/23 - 2.87 02/27/24 - 6.00 & 13.7% 04/25/24 - 2.30 Overall the patient tolerates cystoscopy well. This is documented above. We discussed the options. He should continue with his Flomax 0.4 mg daily without dosage changes. We discussed the options including prostate resection versus minimally invasive procedural intervention. He understands that he does have a fairly large prostate and that all procedural intervention is compared to the TURP which is the most aggressive procedure performed under anesthesia but also carries with it more possible side effects. He knows that a UroLift procedure does not prohibit a more aggressive procedure in the future. He wants to proceed with that. Prescriptions sent. Follow-up With When Contact Information John BAPTISTE MD, URL [address] [facility] [address] [place] [address]- Additional Instructions: schedule Urolift Patient Education Prostatic Urethral Lift I, Dayanara Murrell, personally scribed for Dr. Baptiste on 06/23/2024 15:40:59. . Documentation recorded by the scribe, Dayanara Murrell, accurately reflects the services(s) I performed and decisions made by me. Authenticated by Dr. Baptiste on 06/23/2024 15:42:23. Portions of this record may have been created with voice recognition artificial intelligence software, specif (more content not included)... Normal [facility] Comment on above: Result Comment: Elec tronically Signed By: John BAPTISTE MD\.br\Date and Time Signed: 06/23/24 15:44 EST\.br\Electronically Co-Signed By: Dayanara Murrell\.br\Date and Time Co-Signed: 06/23/24 15:41 EST Urology Office/Clinic Noteon 04-28-2024 Urology Office/Clinic Note Urology Office/Clinic Note Chief Complaint 2 week follow up w/PSA HPI Staff 69 yo male here for 2 week follow up to discuss PSA. PSA: 04/25/24 - 2.3 Pt's PVR in office today is 208mL. Dysuria: No Incomplete bladder emptying: No Hematuria: No Frequency: No Urgency: No Nocturia: 2x a night Stream: Fair Leaking: No Post void dripping: No Wearing pads/ Depends: No Urge incontinence: No Stress incontinence: No Incontinence without Sensory Awareness: No Abdominal pain: No Flank pain: Occasionally Rt sided pain, Pt will drink water and the pain will go away. Sexual complaints: Yes History of Present Illness staff HPI reviewed and agree. Tests Reviewed: Reviewed UA. Review of Systems PHQ Score Initial Depression Screen Score: 0 SCORE no fever, chills, malaise, myalgia. no rash/lesions. no chest pain, palpitations, or SOB. no abdominal pain, nausea, vomiting. no unilateral calf swelling, redness, pain Physical Exam Vitals & Measurements HR: 63(Peripheral) BP: 111/68 HT: 68 in HT: 172 cm WT: 111.5 kg WT: 245.815 lb BMI: 37.69 General: nontoxic, NAD Mouth: moist mucosa Lungs: normal respiratory effort Cardio: regular rate, good distal perfusion Abdomen: nondistended, no suprapubic distention or tenderness, no CVA tenderness Neurologic: Grossly normal Skin: No rashes or suspicious lesions Assessment/Plan 1. BPH with obstruction/lower urinary tract symptoms (N40.1: Benign prostatic hyperplasia with lower urinary tract symptoms) IPSS 14(18), QoL 3 At last ov we increased Flomax to BID. Pt reports this has improved his sx somewhat. No bothersome side effects. Has cysto planned to evaluate for [place] procedures. Did give Urolift/Rezum info today. 2. Chronic prostatitis (N41.1: Chronic prostatitis) Sudden rise in PSA noted at last ov. Treated w 2 wks Cipro. UA today negative. PSA has come back down to his normal range. See #3. 3. Elevated PSA (R97.20: Elevated prostate specific antigen [PSA]) PSA: 07/29/21 - 2.33 09/14/23 - 2.87 02/27/24 - 6.0 & 13.7% 04/25/24 - 2.3 PSA back within normal range. Continue to screen annually. 4. Urinary retention (R33.9: Retention of urine, unspecified) PVR 04/16/24 - 413 mL initially, 204 mL repeat at end of ov after voiding again 04/28/24 - 208 mL Does not warrant cath drainage but definitely elevated. Will need to continue to monitor closely. Has upcoming cysto, see #1. Follow-up With When Contact Information ADRIÁN DELACRUZ, SU Esquivel, URL [address] [place] [address] Additional Instructions: Schedule Cysto Patient Education Urinary Incontinence Acute Urinary Retention, Male Prostate Cancer Screening I, Shree Stallworth, personally scribed for MAGED Pedraza on 04/28/2024 12:26:18. . Documentation recorded by the gregor Stallworth_ accurately reflects the services(s) I performed and decisions made by me. Authenticated by Su Cook PA-C on 04/28/2024 13:36:57. 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 Medications albuterol carvedilol 6.25 mg Tab, 6.25 mg= 1 tab(s), Oral, BID Cipro 500 mg Tab, 500 mg= 1 tab(s), Oral, q12hr losartan 50 mg Tab, 50 mg= 1 tab(s), Oral, Daily omeprazole 20 mg Cap-DR, 20 mg= 1 cap(s), Oral, Daily rosuvastatin, 40 mg, Oral, Daily tamsulosin 0.4 mg Cap, 0.8 mg= 2 cap(s), Oral, Daily, 11 refills Allergies codeine (Unknown) Social History Alcohol Never., 04/16/2024 Substance Abuse Never., 04/16/2024 Tobacco Former smoker, quit more than 30 days ago Tobacco Use:. Never Smokeless Tobacco Use:. Cigarettes, 04/28/2024 Family History Hyperlipidemia: Father. Hypertension: Father. Lab Results Ambulatory Point of Care Results Bilirubin Urine Dipstick: Negative (04/28/24 12:04:00) Blood Urine Dipstick: Negative (04/28/24 12:04:00) Glucose Urine Dipstick: Negative (04/28/24 12:04:00) Ketones Urine Dipstick: Negative (04/28/24 12:04:00) Nitrite Urine Dipstick: Negative (04/28/24 12:04:00) Protein Urine Dipstick: Negative (04/28/24 12:04:00) Specific Hartly Urine Dipstick: 1.020 (04/28/24 12:04:00) Urine Appearance Urine Dipstick: Clear (04/28/24 12:04:00) Urine Color Urine Dipstick: Yellow (04/28/24 12:04:00) Urobilinogen Urine Dipstick: Normal 0.2-1 EU/dl (04/28/24 12:04:00) pH Urine Dipstick: 6.5 (04/28/24 12:04:00) Normal [facility] Comment on above: Result Comment: Elec tronically Signed By: SU COOK PA-C\.br\Date and Time Signed: 04/28/24 13:37 EST\.br\Electronically Co-Signed By: Shree Stallworth\.br\Date and Time Co-Signed: 04/28/24 12:30 EST CHEMISTRYOrdered By: SYSTEM SYSTEM on 04-25-2024 Prostate specific Ag [Mass/Vol] 2.3 ng/mL Normal 0.1 - 3.5 ng/mL [facility] Comment on above: Interpretive Data: T he concentration of PSA determined by different manufacturers can vary due to differences in assay methods and reagent specificity. Values obtained from different assay methods cannot be used interchangeably. The methodology used for this result was chemiluminescence using [employer]'s Access Hybritech PSA reagent. PSA Totalon 04-25-2024 Prostate specific Ag [Mass/Vol] 2.3 ng/mL Normal 0.1-3.5 [facility] Comment on above: Result Comment: The concentration of PSA determined by different manufacturers can vary due to differences in assay methods and reagent specificity. Values obtained from different assay methods cannot be used interchangeably. The methodology used for this result was chemiluminescence using [employer] [place]'s Access Hybritech PSA reagent. Performed By: #### 1 [id number] #### [facility] [address] [place] [address] No Panel Informationon 02-18 [facility] WHITE BLOOD CELLSon 02-19-20 24 WHITE BLOOD CELLS White Blood Cells [facility] WHITE BLOOD CELLS None seen [facility] Activated partial thrombopla stin time (aPTT) in platelet poor plasma by coagulation aOrdered By: Jasper Gross on 06-14-2023 aPTT Coag (PPP) [Time] 30.2 s 25.1-36.5 [facility] Comment on above: A hematocrit value g reater than 55% may lead to inaccurate results in coagulation testing. Patients having hematocrit values >55% require a special collection tube for coagulation studies. Please contact the laboratory at [phone] for redraw instructions. Alanine aminotransferase [En zymatic activity/volume] in Serum or PlasmaOrdered By: Jasper Gross on 06-14-2023 ALT [Catalytic activity/Vol] 37 U/L 7-52 [facility] Albumin [Mass/volume] in Ser um or Plasma by Bromocresol green (BCG) dye binding methoOrdered By: Jasper Gross on 06-14-2023 Albumin BCG dye [Mass/Vol] 4.1 g/dL 3.5-5.7 [facility] Alkaline phosphatase [Enzyma tic activity/volume] in Serum or PlasmaOrdered By: Jasper Gross on 06-14-2023 ALP [Catalytic activity/Vol] 59 U/L 34-104 [facility] Aspartate aminotransferase [ Enzymatic activity/volume] in Serum or PlasmaOrdered By: Jasper Gross on 06-14-2023 AST [Catalytic activity/Vol] 29 U/L 13-39 [facility] B-Type Natriuretic Peptideon 06-14-2023 Natriuretic peptide B (Bld) [Mass/Vol] 67.0 pg/mL Normal 5-100 [facility] Comment on above: Result Comment: PERF ORMED BY: [place] [address] PATHOLOGIST ENGINEERING VICE PRESIDENT RAPHAEL RANGEL M.D. Performed By: #### C OVID19 FLU RSV, CEPHEID NEG #### [address] Basophils Auto (Bld) [#/Vol] Ordered By: Jasper Gross on 06-14-2023 Basophils (Bld) [#/Vol] 0.0 10*3/uL 0.0-0.2 [facility] Basophils/100 WBC Auto (Bld) Ordered By: Jasper Gross on 06-14-2023 Basophils/100 WBC (Bld) 0.6 % . [facility] Bilirubin.total [Mass/volume ] in Serum or PlasmaOrdered By: Jasper Gross on 06-14-2023 Bilirubin [Mass/Vol] 0.4 mg/dL 0.3-1.0 [facility] COVID CepheidOrdered By: Asya Jollyjenae on 06-14-2023 SARS-CoV-2 (COVID-19) Ab IA Ql Negative Negative [facility] Comment on above: This is a duplicate Cepheid Xpert Xpress CoV-2/Flu/RSV Plus RNA by RT-PCR result to be used for statistical tracking purpose only. SARS-CoV-2 (COVID-19) RNA VERONA+probe Ql (Unsp spec) [facility] COVID-19 / Flu A/B / RSV [...] or Cepheid Disclaimer revoked sooner. PERFORMED BY: [place] [address] PATHOLOGIST ENGINEERING VICE PRESIDENT RAPHAEL RANGEL M.D. Normal [facility] Comment on above: Performed By: #### C OVID19 FLU RSV, CEPHEID NEG #### [facility] [address] [place] [address] [place] Calcium [Mass/volume] in Ser um or PlasmaOrdered By: Jasper Gross on 06-14-2023 Calcium [Mass/Vol] 9.0 mg/dL 8.6-10.3 [facility] Carbon dioxide, total [Moles /volume] in Serum or PlasmaOrdered By: Jasper Gross on 06-14-2023 CO2 [Moles/Vol] 23.4 mmol/L 21.0-31.0 [facility] Cepheid COVID PCR Negativeon 06-14-2023 SARS-CoV-2 (COVID-19) RNA VERONA+probe Ql (Unsp spec) Negative Normal Negative [facility] Comment on above: Result Comment: This is a duplicate Cepheid Xpert Xpress CoV-2/Flu/RSV Plus RNA by RT-PCR result to be used for statistical tracking purpose only. PERFORMED BY: [place] [address] PATHOLOGIST ENGINEERING VICE PRESIDENT RAPHAEL RANGEL M.D. Performed By: #### C OVID19 FLU RSV, CEPHEID NEG #### [facility] [address] [place] [address] [place] Chloride [Moles/volume] in S taylor or PlasmaOrdered By: Jasper Gross on 06-14-2023 Chloride [Moles/Vol] 105 mmol/L 98-107 [facility] Complete Blood Count Auto Di ffon 06-14-2023 Basophils (Bld) [#/Vol] 0.0 10*3/uL Normal 0.0-0.2 [facility] Comment on above: Result Comment: PERF ORMED BY: [place] [address] PATHOLOGIST ENGINEERING VICE PRESIDENT RAPHAEL RANGEL M.D. Performed By: #### B POUNCER MACHINE, CK, MG, CBC, HS TROP, PTT, PT, CMP #### [address] Basophils/100 WBC (Bld) 0.6 % Normal . [facility] Comment on above: Performed By: #### B POUNCER MACHINE, CK, MG, CBC, HS TROP, PTT, PT, CMP #### [address] Eosinophils (Bld) [#/Vol] 0.8 10*3/uL High 0.0-0.45 [facility] Comment on above: Performed By: #### B POUNCER MACHINE, CK, MG, CBC, HS TROP, PTT, PT, CMP #### [address] Eosinophils/100 WBC (Bld) 9.6 % Normal . [facility] Comment on above: Performed By: #### B POUNCER MACHINE, CK, MG, CBC, HS TROP, PTT, PT, CMP #### [address] Erythrocyte distribution width (RBC) [Ratio] 14.4 % Normal 12.0-14.8 [facility] Comment on above: Performed By: #### B POUNCER MACHINE, CK, MG, CBC, HS TROP, PTT, PT, CMP #### [address] Hematocrit (Bld) [Volume fraction] 40.8 % Normal 38.8-50.0 [facility] Comment on above: Performed By: #### B POUNCER MACHINE, CK, MG, CBC, HS TROP, PTT, PT, CMP #### [address] Hemoglobin (Bld) [Mass/Vol] 14.3 g/dL Normal 13.0-17.0 [facility] Comment on above: Performed By: #### B POUNCER MACHINE, CK, MG, CBC, HS TROP, PTT, PT, CMP #### [address] Lymphocytes (Bld) [#/Vol] 1.5 10*3/uL Normal 1.00-4.8 [facility] Comment on above: Performed By: #### B POUNCER MACHINE, CK, MG, CBC, HS TROP, PTT, PT, CMP #### [address] Lymphocytes/100 WBC (Bld) 18.5 % Normal . [facility] Comment on above: Performed By: #### B POUNCER MACHINE, CK, MG, CBC, HS TROP, PTT, PT, CMP #### [address] MCH (RBC) [Entitic mass] 30.1 pg Normal 27.5-35.2 [facility] Comment on above: Performed By: #### B POUNCER MACHINE, CK, MG, CBC, HS TROP, PTT, PT, CMP #### [address] MCV (RBC) [Entitic vol] 86.2 fL Normal 83.5-101 [facility] Comment on above: Performed By: #### B POUNCER MACHINE, CK, MG, CBC, HS TROP, PTT, PT, CMP #### [address] Mean Corpuscular HGB Conc 34.9 g/dL Normal 32.5-35.6 [facility] Comment on above: Performed By: #### B POUNCER MACHINE, CK, MG, CBC, HS TROP, PTT, PT, CMP #### [address] Monocytes (Bld) [#/Vol] 0.8 10*3/uL Normal 0.0-0.8 [facility] Comment on above: Performed By: #### B POUNCER MACHINE, CK, MG, CBC, HS TROP, PTT, PT, CMP #### [address] Monocytes/100 WBC (Bld) 16.39 % Normal 0.00-20.00 [facility] Comment on above: Performed By: #### B POUNCER MACHINE, CK, MG, CBC, HS TROP, PTT, PT, CMP #### [address] Monocytes/100 WBC (Bld) 10.1 % Normal . [facility] Comment on above: Performed By: #### B POUNCER MACHINE, CK, MG, CBC, HS TROP, PTT, PT, CMP #### [address] Neutrophils (Bld) [#/Vol] 4.9 10*3/uL Normal 1.8-7.7 [facility] Comment on above: Performed By: #### B POUNCER MACHINE, CK, MG, CBC, HS TROP, PTT, PT, CMP #### [address] Neutrophils/100 WBC (Bld) 61.2 % Normal . [facility] Comment on above: Performed By: #### B POUNCER MACHINE, CK, MG, CBC, HS TROP, PTT, PT, CMP #### [address] NRBC% 0.1 /100{WBC} Normal 0-0.5 [facility] Comment on above: Performed By: #### B POUNCER MACHINE, CK, MG, CBC, HS TROP, PTT, PT, CMP #### [address] Platelet mean volume (Bld) [Entitic vol] 8.4 fL Normal 6.6-10.1 [facility] Comment on above: Performed By: #### B POUNCER MACHINE, CK, MG, CBC, HS TROP, PTT, PT, CMP #### [address] Platelets (Bld) [#/Vol] 181 10*3/uL Normal 150-450 [facility] Comment on above: Performed By: #### B POUNCER MACHINE, CK, MG, CBC, HS TROP, PTT, PT, CMP #### [facility] [address] RBC (Bld) [#/Vol] 4.74 10*6/uL Normal 3.90-5.60 [facility] Comment on above: Performed By: #### B POUNCER MACHINE, CK, MG, CBC, HS TROP, PTT, PT, CMP #### [facility] [address] WBC (Bld) [#/Vol] 8.1 10*3/uL Normal 4.1-10.5 [facility] Comment on above: Performed By: #### B POUNCER MACHINE, CK, MG, CBC, HS TROP, PTT, PT, CMP #### [address] Comprehensive Metabolic Pane maria esther 06-14-2023 Albumin [Mass/Vol] 4.1 g/dL Normal 3.5-5.7 [facility] Comment on above: Performed By: #### B POUNCER MACHINE, CK, MG, CBC, HS TROP, PTT, PT, CMP #### [facility] [address] Albumin/Globulin [Mass ratio] 1.6 {ratio} Normal [facility] Comment on above: Performed By: #### B POUNCER MACHINE, CK, MG, CBC, HS TROP, PTT, PT, CMP #### [facility] [address] ALP [Catalytic activity/Vol] 59 U/L Normal 34-104 [facility] Comment on above: Performed By: #### B POUNCER MACHINE, CK, MG, CBC, HS TROP, PTT, PT, CMP #### [facility] [address] ALT [Catalytic activity/Vol] 37 U/L Normal 7-52 [facility] Comment on above: Performed By: #### B POUNCER MACHINE, CK, MG, CBC, HS TROP, PTT, PT, CMP #### [facility] [address] Anion gap [Moles/Vol] 11.5 mmol/L Normal 6.0-15.0 [facility] Comment on above: Performed By: #### B POUNCER MACHINE, CK, MG, CBC, HS TROP, PTT, PT, CMP #### [facility] [address] AST [Catalytic activity/Vol] 29 U/L Normal 13-39 [facility] Comment on above: Performed By: #### B POUNCER MACHINE, CK, MG, CBC, HS TROP, PTT, PT, CMP #### [facility] [address] Bilirubin [Mass/Vol] 0.4 mg/dL Normal 0.3-1.0 [facility] Comment on above: Performed By: #### B POUNCER MACHINE, CK, MG, CBC, HS TROP, PTT, PT, CMP #### [facility] [address] Calcium [Mass/Vol] 9.0 mg/dL Normal 8.6-10.3 [facility] Comment on above: Performed By: #### B POUNCER MACHINE, CK, MG, CBC, HS TROP, PTT, PT, CMP #### [facility] [address] Chloride [Moles/Vol] 105 mmol/L Normal 98-107 [facility] Comment on above: Performed By: #### B POUNCER MACHINE, CK, MG, CBC, HS TROP, PTT, PT, CMP #### [facility] [address] CO2 [Moles/Vol] 23.4 mmol/L Normal 21.0-31.0 [facility] Comment on above: Performed By: #### B POUNCER MACHINE, CK, MG, CBC, HS TROP, PTT, PT, CMP #### [facility] [address] Creatinine [Mass/Vol] 0.89 mg/dL Normal 0.70-1.30 [facility] Comment on above: Performed By: #### B POUNCER MACHINE, CK, MG, CBC, HS TROP, PTT, PT, CMP #### [facility] [address] Creatinine Clr Calc Pharmacy 92.[address] [facility] Comment on above: Performed By: #### B POUNCER MACHINE, CK, MG, CBC, HS TROP, PTT, PT, CMP #### [facility] [address] GFR/1.73 sq M.predicted MDRD (S/P/Bld) [Vol rate/Area] mL/min/{1.73_m2} [facility] Comment on above: Performed By: #### B POUNCER MACHINE, CK, MG, CBC, HS TROP, PTT, PT, CMP #### [facility] [address] Globulin (S) [Mass/Vol] 2.5 g/dL [facility] Comment on above: Performed By: #### B POUNCER MACHINE, CK, MG, CBC, HS TROP, PTT, PT, CMP #### [facility] [address] Glucose [Mass/Vol] 144 mg/dL High 70-100 [facility] Comment on above: Result Comment: [facility] Glucose Reference Range is dependent on time and content of last meal. Glucose of more than 200 mg/dL in a nonstressed, ambulatory subject supports the diagnosis of Diabetes Mellitus. ADA recommended reference range Performed By: #### B POUNCER MACHINE, CK, MG, CBC, HS TROP, PTT, PT, CMP #### [address] Potassium [Moles/Vol] 3.9 mmol/L Normal 3.5-5.1 [facility] Comment on above: Performed By: #### B POUNCER MACHINE, CK, MG, CBC, HS TROP, PTT, PT, CMP #### [facility] [address] Protein [Mass/Vol] 6.6 g/dL Normal 6.4-8.9 [facility] Comment on above: Performed By: #### B POUNCER MACHINE, CK, MG, CBC, HS TROP, PTT, PT, CMP #### [address] Sodium [Moles/Vol] 136 mmol/L Normal 136-145 [facility] Comment on above: Performed By: #### B POUNCER MACHINE, CK, MG, CBC, HS TROP, PTT, PT, CMP #### [facility] [address] Urea nitrogen [Mass/Vol] 12 mg/dL Normal 7-25 [facility] Comment on above: Performed By: #### B POUNCER MACHINE, CK, MG, CBC, HS TROP, PTT, PT, CMP #### [facility] [address] [place] [id number] [place] Creatine Kinaseon 06-14-2023 CK [Catalytic activity/Vol] 185 U/L Normal [facility] Comment on above: Performed By: #### C OVID19 FLU RSV, CEPHEID NEG #### [facility] [address] Creatine kinase [Enzymatic a ctivity/volume] in Serum or PlasmaOrdered By: Jasper Gross on 06-14-2023 CK [Catalytic activity/Vol] 185 U/L [facility] Creatinine [Mass/volume] in Serum or PlasmaOrdered By: Jasper Gross on 06-14-2023 Creatinine [Mass/Vol] 0.89 mg/dL 0.70-1.30 [facility] ECG 12 lead ECGon 06-14-2023 ECG 12 lead ECG [facility] Main [place] [address] [place] [address] Electrocardiograph Report Signed Patient: Demarcus Calderon MR#: [id number] : 1955 Acct:[id number] Age/Sex: 68 / M ADM Date: 06/14/23 Loc: ER Room: Type: [facility] ER Attending Dr: Ordering Provider: Jasper Gross DO Date of Service: 06/14/23 ECG/ECG 12 [...] ms Normal sinus rhythm Confirmed by Jasper GROSS DO ([id number]) on 06/14/2023 2:25:14 PM Referred By: Electronically Signed By:Jasper GROSS DO Transcribed By: MUS Signed By Jasper Gross DO 0 06/14/23 1425 Normal [facility] Eosinophils Auto (Bld) [#/Vo l]Ordered By: Jasper Gross on 06-14-2023 Eosinophils (Bld) [#/Vol] 0.8 10*3/uL 0.0-0.45 [facility] Eosinophils/100 WBC Auto (Bl d)Ordered By: Jasper Gross on 06-14-2023 Eosinophils/100 WBC (Bld) 9.6 % . [facility] [facility] Erythrocyte distribution wid th Auto (RBC) [Ratio]Ordered By: Jasper Gross on 06-14-2023 Erythrocyte distribution width (RBC) [Ratio] 14.4 % 12.0-14.8 [facility] Globulin Calc (S) [Mass/Vol] Ordered By: Jasper Gross on 06-14-2023 Globulin (S) [Mass/Vol] 2.5 g/dL [facility] Glucose [Mass/volume] in Ser um or PlasmaOrdered By: Jasper Gross on 06-14-2023 Glucose [Mass/Vol] 144 mg/dL 70-100 [facility] Comment on above: ADA recommended refe rence rangeRandom Glucose Reference Range is dependent on time and content of last meal. Glucose of more than 200 mg/dL in a nonstressed, ambulatory subject supports the diagnosis of Diabetes Mellitus. Hematocrit Auto (Bld) [Volum e fraction]Ordered By: Jasper Gross on 06-14-2023 Hematocrit (Bld) [Volume fraction] 40.8 % 38.8-50.0 [facility] Hemoglobin [Mass/volume] in BloodOrdered By: Jasper Gross on 06-14-2023 Hemoglobin (Bld) [Mass/Vol] 14.3 g/dL 13.0-17.0 [facility] INR in Platelet poor plasma by Coagulation assayOrdered By: Jasper Gross on 06-14-2023 INR Coag (PPP) [Relative time] 1.1 {INR} [facility] Comment on above: INR Therapeutic Rang [...] in Blood by Automated counOrdered By: Jasper Gross on 06-14-2023 WBC corrected for nucl RBC Auto (Bld) [#/Vol] 8.1 10*3/uL 4.1-10.5 [facility] Lymphocytes Auto (Bld) [#/Vo l]Ordered By: Jasper Gross on 06-14-2023 Lymphocytes (Bld) [#/Vol] 1.5 10*3/uL 1.00-4.8 [facility] Lymphocytes/100 WBC Auto (Bl d)Ordered By: Jasper Gross on 06-14-2023 Lymphocytes/100 WBC (Bld) 18.5 % . [facility] MCH Auto (RBC) [Entitic mass ]Ordered By: Jasper Gross on 06-14-2023 MCH (RBC) [Entitic mass] 30.1 pg 27.5-35.2 [facility] MCHC Auto (RBC) [Mass/Vol]Or dered By: Jasper Gross on 06-14-2023 MCHC (RBC) [Mass/Vol] 34.9 g/dL 32.5-35.6 [facility] MCV Auto (RBC) [Entitic vol] Ordered By: Jasper Gross on 06-14-2023 MCV (RBC) [Entitic vol] 86.2 fL 83.5-101 [facility] Magnesiumon 06-14-2023 Magnesium [Mass/Vol] 2.0 mg/dL Normal 1.9-2.7 [facility] Comment on above: Result Comment: PERF ORMED BY: [facility] [address] [place] [address] PATHOLOGIST ENGINEERING VICE PRESIDENT RAPHAEL RANGEL M.D. Performed By: #### B POUNCER MACHINE, CK, MG, CBC, HS TROP, PTT, PT, CMP #### [facility] [address] [place] [id number] [facility] Magnesium [Mass/volume] in S taylor or PlasmaOrdered By: Jasper Gross on 06-14-2023 Magnesium [Mass/Vol] 2.0 mg/dL 1.9-2.7 [facility] Monocyte distribution width [Entitic volume] in Blood by AutomatedOrdered By: Jasper Gross on 06-14-2023 Monocyte distribution width Auto (Bld) [Entitic vol] 16.39 % 0.00-20.00 [facility] Monocytes Auto (Bld) [#/Vol] Ordered By: Jasper Gross on 06-14-2023 Monocytes (Bld) [#/Vol] 0.8 10*3/uL 0.0-0.8 [facility] Monocytes/100 WBC Auto (Bld) Ordered By: Jasper Gross on 06-14-2023 Monocytes/100 WBC (Bld) 10.1 % . [facility] Natriuretic peptide B [Mass/ Vol]Ordered By: Jasper Gross on 06-14-2023 Natriuretic peptide B (Bld) [Mass/Vol] 67.0 pg/mL 5-100 [facility] Neutrophils Auto (Bld) [#/Vo l]Ordered By: Jasper Gross on 06-14-2023 Neutrophils (Bld) [#/Vol] 4.9 10*3/uL 1.8-7.7 [facility] Neutrophils/100 WBC Auto (Bl d)Ordered By: Jasper Gross on 06-14-2023 Neutrophils/100 WBC (Bld) 61.2 % . [facility] No Panel InformationOrdered By: Jasper Gross on 06-14-2023 Estimated GFR (CKD-EPI) > 60.0 mL/Min [facility] Pharm[facility] Creatinine Clearance (Chem 92.42 [facility] Nucleated erythrocytes [Pres ence] in Blood by Automated countOrdered By: Jasper Gross on 06-14-2023 Nucleated RBC Auto Ql (Bld) 0.1 /100{WBC} 0-0.5 [facility] Partial Thromboplastin Timeo n 06-14-2023 aPTT Coag (Bld) [Time] 30.2 s Normal 25.1-36.5 [facility] Comment on above: Result Comment: A he matocrit value greater than 55% may lead to inaccurate results in coagulation testing. Patients having hematocrit values >55% require a special collection tube for coagulation studies. Please contact the laboratory at [phone] for redraw instructions. PERFORMED BY: [address] [address] PATHOLOGIST ENGINEERING VICE PRESIDENT RAPHAEL RANGEL M.D. Performed By: #### C OVID19 FLU RSV, CEPHEID NEG #### [facility] [address] [place], [place] [id number] [facility] Platelet mean volume Auto (B ld) [Entitic vol]Ordered By: Jasper Gross on 06-14-2023 Platelet mean volume (Bld) [Entitic vol] 8.4 fL 6.6-10.1 [facility] Platelets Auto (Bld) [#/Vol] Ordered By: Jasper Gross on 06-14-2023 Platelets (Bld) [#/Vol] 181 10*3/uL 150-450 [facility] Potassium [Moles/volume] in Serum or PlasmaOrdered By: Jasper Gross on 06-14-2023 Potassium [Moles/Vol] 3.9 mmol/L 3.5-5.1 [facility] Protein [Mass/volume] in Ser um or PlasmaOrdered By: Jasper Gross on 06-14-2023 Protein [Mass/Vol] 6.6 g/dL 6.4-8.9 [facility] Prothrombin Time INRon 06-14 INR Coag (PPP) [Relative time] 1.1 {INR} Normal [facility] Comment on above: Result Comment: INR [...] 3 - 4.5 Performed By: #### B POUNCER MACHINE, CK, MG, CBC, HS TROP, PTT, PT, CMP #### [facility] [address] [place] [address] [facility] PT Coag (PPP) [Time] 12.1 s Normal 9.0-12.9 [facility] Comment on above: Result Comment: A he matocrit value greater than 55% may lead to inaccurate results in coagulation testing. Patients having hematocrit values >55% require a special collection tube for coagulation studies. Please contact the laboratory at [phone] for redraw instructions. Performed By: #### B POUNCER MACHINE, CK, MG, CBC, HS TROP, PTT, PT, CMP #### [facility] [address] [place] [address] [facility] Prothrombin time (PT)Ordered By: Jasper Gross on 06-14-2023 PT Coag (PPP) [Time] 12.1 s 9.0-12.9 [facility] Comment on above: A hematocrit value g reater than 55% may lead to inaccurate results in coagulation testing. Patients having hematocrit values >55% require a special collection tube for coagulation studies. Please contact the laboratory at [phone] for redraw instructions. RBC Auto (Bld) [#/Vol]Ordere d By: Jasper Gross on 06-14-2023 RBC (Bld) [#/Vol] 4.74 10*6/uL 3.90-5.60 [facility] Serum or plasma albumin/glob ulin mass ratioOrdered By: Jasper Gross on 06-14-2023 Albumin/Globulin [Mass ratio] 1.6 {ratio} [facility] Serum or plasma anion gap de terminationOrdered By: Jasper Gross on 06-14-2023 Anion gap [Moles/Vol] 11.5 mmol/L 6.0-15.0 [facility] Sodium [Moles/volume] in Ser um or PlasmaOrdered By: Jasper Gross on 06-14-2023 Sodium [Moles/Vol] 136 mmol/L 136-145 [facility] Troponin I High Sensitivityo n 06-14-2023 Troponin I High Sensitivity 26.8 pg/mL High 0.0-20.0 [facility] Comment on above: Result Comment: PERF ORMED BY: [facility] [address] [place] [address] PATHOLOGIST ENGINEERING VICE PRESIDENT RAPHAEL RANGEL M.D. Performed By: #### C OVID19 FLU RSV, CEPHEID NEG #### [address] Troponin I.cardiac [Mass/vol ume] in Serum or Plasma by Detection limit <= 0.01 ng/Ordered By: Jasper Gross on 06-14-2023 Troponin I.cardiac DL <= 0.01 ng/mL [Mass/Vol] 26.8 pg/mL 0.0-20.0 [facility] Urea nitrogen [Mass/volume] in Serum or PlasmaOrdered By: Jasper Gross on 06-14-2023 Urea nitrogen [Mass/Vol] 12 mg/dL 7-25 [facility] WBC Auto (Bld) [#/Vol]Ordere d By: Jasper Gross on 06-14-2023 WBC (Bld) [#/Vol] 8.1 10*3/uL 4.1-10.5 [facility] XR chest 2V*on 06-14-2023 XR chest 2V* [facility] Main [place] [address] [place] [address] XRay Report Signed Patient: Demarcus Calderon MR#: [id number] [id number] : 1955 Acct:[id number] Age/Sex: 68 / M ADM Date: 06/14/23 Loc: ER Room: Type: [facility] ER Attending Dr: Copies to: Jasper Gross DO Ordering Provider: Jasper Gross DO Date of Service: 06/14/23 XR/XR chest [...] Salvador Nguyễn M.D.06/14/2023 1:59 PM Dictation Location: [facility]-- Transcribed By: PWS 06/14/23 135 Dictated By: Salvador Nguyễn DO 06/14/23 1354 Signed By: 06/14/23 1359 Normal [facility] Cardiac echo study Procedure on 03-20-2023 Ordered by an unspec ified provider. [facility] Alanine aminotransferase [En zymatic activity/volume] in Serum or PlasmaOrdered By: Sera Flower on 02-05-2023 ALT [Catalytic activity/Vol] 51 U/L 7-52 [facility] Albumin [Mass/volume] in Ser um or Plasma by Bromocresol green (BCG) dye binding methoOrdered By: Sera Flower on 02-05-2023 Albumin BCG dye [Mass/Vol] 4.4 g/dL 3.5-5.7 [facility] Alkaline phosphatase [Enzyma tic activity/volume] in Serum or PlasmaOrdered By: Sera Flower on 02-05-2023 ALP [Catalytic activity/Vol] 61 U/L 34-104 [facility] Aspartate aminotransferase [ Enzymatic activity/volume] in Serum or PlasmaOrdered By: Sera Flower on 02-05-2023 AST [Catalytic activity/Vol] 39 U/L 13-39 [facility] Bilirubin.total [Mass/volume ] in Serum or PlasmaOrdered By: Sera Flower on 02-05-2023 Bilirubin [Mass/Vol] 0.7 mg/dL 0.3-1.0 [facility] Calcium [Mass/volume] in Ser um or PlasmaOrdered By: Sera Flower on 02-05-2023 Calcium [Mass/Vol] 9.1 mg/dL 8.6-10.3 [facility] Carbon dioxide, total [Moles /volume] in Serum or PlasmaOrdered By: Sera Flower on 02-05-2023 CO2 [Moles/Vol] 28.0 mmol/L 21.0-31.0 [facility] Chloride [Moles/volume] in S taylor or PlasmaOrdered By: Sera Flower on 02-05-2023 Chloride [Moles/Vol] 103 mmol/L 98-107 [facility] Pane maria esther 02-05-2023 Albumin [Mass/Vol] 4.4 g/dL Normal 3.5-5.7 [facility] Comment on above: Order Comment: PT IS FASTING Performed By: #### C MP #### [address] Albumin/Globulin [Mass ratio] 2.6 {ratio} Normal [facility] Comment on above: Order Comment: PT IS FASTING Performed By: #### C MP #### [address] ALP [Catalytic activity/Vol] 61 U/L Normal 34-104 [facility] Comment on above: Order Comment: PT IS FASTING Result Comment: PERF ORMED BY: [place] [address] PATHOLOGIST ENGINEERING VICE PRESIDENT RAPHAEL RANGEL M.D. Performed By: #### C MP #### [address] ALT [Catalytic activity/Vol] 51 U/L Normal 7-52 [facility] Comment on above: Order Comment: PT IS FASTING Performed By: #### C MP #### [address] Anion gap [Moles/Vol] 11.4 mmol/L Normal 6.0-15.0 [facility] Comment on above: Order Comment: PT IS FASTING Performed By: #### C MP #### [address] AST [Catalytic activity/Vol] 39 U/L Normal 13-39 [facility] Comment on above: Order Comment: PT IS FASTING Performed By: #### C MP #### [address] Bilirubin [Mass/Vol] 0.7 mg/dL Normal 0.3-1.0 [facility] Comment on above: Order Comment: PT IS FASTING Performed By: #### C MP #### [address] Calcium [Mass/Vol] 9.1 mg/dL Normal 8.6-10.3 [facility] Comment on above: Order Comment: PT IS FASTING Performed By: #### C MP #### [facility] [address] Chloride [Moles/Vol] 103 mmol/L Normal 98-107 [facility] Comment on above: Order Comment: PT IS FASTING Performed By: #### C MP #### [address] CO2 [Moles/Vol] 28.0 mmol/L Normal 21.0-31.0 [facility] Comment on above: Order Comment: PT IS FASTING Performed By: #### C MP #### [address] Creatinine [Mass/Vol] 1.00 mg/dL Normal 0.70-1.30 [facility] Comment on above: Order Comment: PT IS FASTING Performed By: #### C MP #### [address] GFR/1.73 sq M.predicted MDRD (S/P/Bld) [Vol rate/Area] mL/min/{1.73_m2} [facility] Comment on above: Order Comment: PT IS FASTING Performed By: #### C MP #### [address] Globulin (S) [Mass/Vol] 1.7 g/dL Normal [facility] Comment on above: Order Comment: PT IS FASTING Performed By: #### C MP #### [address] Glucose [Mass/Vol] 93 mg/dL Normal 70-100 [facility] Comment on above: Order Comment: PT IS FASTING Result Comment: [place] Glucose Reference Range is dependent on time and content of last meal. Glucose of more than 200 mg/dL in a nonstressed, ambulatory subject supports the diagnosis of Diabetes Mellitus. ADA recommended reference range Performed By: #### C MP #### [place] [address] [place] Potassium [Moles/Vol] 4.4 mmol/L Normal 3.5-5.1 [facility] Comment on above: Order Comment: PT IS FASTING Performed By: #### C MP #### [facility] [address] [place] [address] [place] Protein [Mass/Vol] 6.1 g/dL Low 6.4-8.9 [facility] Comment on above: Order Comment: PT IS FASTING Performed By: #### C MP #### [facility] [address] Sodium [Moles/Vol] 138 mmol/L Normal 136-145 [facility] Comment on above: Order Comment: PT IS FASTING Performed By: #### C MP #### [address] Urea nitrogen [Mass/Vol] 15 mg/dL Normal 7-25 [facility] Comment on above: Order Comment: PT IS FASTING Performed By: #### C MP #### [address] Creatinine [Mass/volume] in Serum or PlasmaOrdered By: Sera Flower on 02-05-2023 Creatinine [Mass/Vol] 1.00 mg/dL 0.70-1.30 [facility] ECH echo transthoracicon ECH echo transthoracic [facility] Main [place] [address] [place] [address] Echocardiogram Signed Patient: Demarcus Calderon MR#: [id number] 652 : 1955 Acct:[id number] Age/Sex: 68 / M ADM Date: 02/05/23 Loc: Room: Type: [facility] Attending Dr: Rene Cortez MD Ordering Provider: Rene Cortez MD, [facility] Date of Service: 02/05/23/ ECH/ECH echo transthoracic: HTN, ISCHEMIC CARDIOMYOPATHY Copies to: Rene Cortez MD, [facility] BSA: 2.2 m2 BP: 141/82 mmHg HR: 53 Reason For Study: HTN, ISCHEMIC CARDIOMYOPATHY History: HTN, HLD, Former Smoker, [place], 5 Stents, Asthma, Emphysema, COVID Interpretation Summary [...] max P.3 mmHg RAP systole: 5.0 mmHg Electronically signed by: RENE CORTEZ MD, [facility] on 02/05/2023 12:07 PM Transcribed By: ARMANDO Performed At: 02/05/23 1042 Signed By: Rene Cortez MD, [facility] 02/05/[address] [facility] Globulin Calc (S) [Mass/Vol] Ordered By: Sera Flower on 02-05-2023 Globulin (S) [Mass/Vol] 1.7 g/dL [facility] Glucose [Mass/volume] in Ser um or PlasmaOrdered By: Sera Flower on 02-05-2023 Glucose [Mass/Vol] 93 mg/dL 70-100 [facility] Comment on above: ADA recommended refe rence rangeRandom Glucose Reference Range is dependent on time and content of last meal. Glucose of more than 200 mg/dL in a nonstressed, ambulatory subject supports the diagnosis of Diabetes Mellitus. No Panel InformationOrdered By: Sera Flower on 02-05-2023 Estimated GFR (CKD-EPI) > 60.0 mL/Min [facility] Creatinine Clearance (Chem N/A [facility] No Panel Informationon 02-05 -[facility] daniel 250 DO Work Phone: Potassium [Moles/volume] in Serum or PlasmaOrdered By: Sera Flower on 02-05-2023 Potassium [Moles/Vol] 4.4 mmol/L 3.5-5.1 [facility] Protein [Mass/volume] in Ser um or PlasmaOrdered By: Sera Flower on 02-05-2023 Protein [Mass/Vol] 6.1 g/dL 6.4-8.9 [facility] Serum or plasma albumin/glob ulin mass ratioOrdered By: Sera Flower on 02-05-2023 Albumin/Globulin [Mass ratio] 2.6 {ratio} [facility] Serum or plasma anion gap de terminationOrdered By: Sera Flower on 02-05-2023 Anion gap [Moles/Vol] 11.4 mmol/L 6.0-15.0 [facility] Sodium [Moles/volume] in Ser um or PlasmaOrdered By: Sera Flower on 02-05-2023 Sodium [Moles/Vol] 138 mmol/L 136-145 [facility] Urea nitrogen [Mass/volume] in Serum or PlasmaOrdered By: Sera Flower on 02-05-2023 Urea nitrogen [Mass/Vol] 15 mg/dL 7-25 [facility] NO CARDIAC STRESS/REST INJE CTIONon 01-03-2023 [facility] CARDIAC STRESS/REST INJECTION Patient Name: DEMARCUS CALDERON STUDY: MYOCARDIAL PERFUSION STRESS TEST WITH LEXISCAN Performing facility: [facility], [address], [address], [place] [address] [facility] Provider: Rene Cortez MD, [facility] PCP: Dr. Hunter Flower Supervising provider: Danna Davis DO, [facility] INDICATION: CAD; HTN Hyperlipidemia Ischemic cardiomyopathy HISTORY: Gender: M; Age: 68 y/o ; Height: 172.72 cm; Weight: 061.3024455 kg. CAD; High Cholesterol; HTN; Quit smoking 38 years ago. Cardiac catheterization on 2009. PTCA on 2009. COMPARISON: Previous nuclear testing completed at [facility]. ACCESSION NUMBER(S): [id number]; [id number]; [id number] ORDERING CLINICIAN: RENE CORTEZ TECHNIQUE: TWO DAY protocol. Stress injection: Date:01-03-23, [...] changes are seen. Electronically signed by: RENE CORTEZ MD Normal [facility] No Panel Informationon 01-03 Normal -[facility] daniel 250 DO Work Phone: Office [...] Oral Tablet Tobacco Use Screening; Status:Complete; Done: 07Sep2022 Unlinked Stop: hydroCHLOROthiazide 25 MG Oral Tablet [...] lab, pcp will follow Chief Complaint DEMARCUS CALDERON is being seen for an annual follow-up [...] down with emphasis on low-calorie diet Rene Cortez MD, [facility] Surgical History Problems History of Coronary artery [...] No a (more content not included)... Normal [facility] Tobacco Screening.on Adult depression screening assessment No [facility] 250 DO Work Phone: Fall risk assessment a) No falls within the last year [facility] 250 DO Work Phone: Tobacco use status CPHS b) No [facility] 250 DO Work [...] by Ethan Walsh on 07/16/2022 1246 Normal [place] [employer] MRI Brain w/o + w/on 023 MRI [...] by Sean Trejo on 07/01/2022 0911 Normal [facility] [employer]er [place] 06-21-2022 RAYSHAWN Telephone (INTMLN) -- DEMARCUS CALDERON ([id number]) 1955 M Date Time Provider Department 06/21/22 DEANDRA BENDER During your visit today, we recorded the following information about you: Delores Mccollum 06/21/2022 12:54 PM Signed [facility] called today. : 1955 Allergies: Codeine, Codeine-Guaifenesin, and Guaifenesin (home) [phone] (cell) Reason for call: Sasha F:[phone] Asking for the MRI orders and office notes to be faxed over to [facility]. Patient will be having them done there. Patient last appointment: Visit date not found The patients preferred pharmacy has been captured for this encounter? not asked Delores Mccollum [facility] 06/21/2022 2:03 PM Signed Notes and MRI [...] Status:Closed by ORQUIDEA SIBLEY on 06/21/22 Normal [facility] XR Ribs w/ PA Chest Left*on [...] Ethan Walsh on 03/13/2022 1254 Normal [facility] XR Chest 2 Views*on 01-18-20 22 [...] LOGAN on 01/17/2022 1243 Normal [facility] Specialist Tobacco Screening.on 022 Adult depression screening assessment No [facility] daniel 250 DO Work Phone: Fall risk assessment a) No falls within the last year [facility] daniel 250 DO Work Phone: Tobacco use status CP b) No [facility] daniel 250 DO Work Phone: CT Chest [...] by AMALIA LOGAN on 08/04/2021 1346 Normal [facility] [employer] Complete Blood Count with Au to Diffon 07-29-2021 Basophils (Bld) [#/Vol] 0.05 10*3/uL Normal 0.00-0.20 [facility] [employer] Comment on above: Performed By: #### C MP, CBCAD #### [facility] [address] [place], [place] [id number] Basophils/100 WBC (Bld) 0.8 % Normal [facility] Specialist Comment on above: Performed By: #### C MP, CBCAD #### [facility] [address] [place], [place] [id number] Eosinophils (Bld) [#/Vol] 0.46 10*3/uL Normal 0.02-0.50 [facility] [employer] Comment on above: Performed By: #### C MP, CBCAD #### [facility] [address] [place], [place] [id number] Eosinophils/100 WBC (Bld) 7.7 % Normal [facility] Specialist Comment on above: Performed By: #### C MP, CBCAD #### [facility] [address] [place], [place] [id number] Erythrocyte distribution width (RBC) [Ratio] 13.3 % Normal 11.0-15.0 [facility] Specialist Comment on above: Performed By: #### C MP, CBCAD #### [facility] [address] [place], [place] [id number] Hematocrit (Bld) [Volume fraction] 42.2 % Normal 38.5-50.0 [facility] Specialist Comment on above: Performed By: #### C MP, CBCAD #### [facility] [address] [place], [place] [id number] Hemoglobin (Bld) [Mass/Vol] 14.5 g/dL Normal 13.0-17.1 [facility] [employer] Comment on above: Performed By: #### C MP, CBCAD #### [facility] [address] [place], [place] [id number] Lymphocytes (Bld) [#/Vol] 1.6 10*3/uL Normal 0.9-3.9 [facility] [employer] Comment on above: Performed By: #### C MP, CBCAD #### [facility] [address] [place], [place] [id number] Lymphocytes/100 WBC (Bld) 26.1 % Normal [facility] Specialist Comment on above: Performed By: #### C MP, CBCAD #### [facility] [address] [place], [place] [id number] MCH (RBC) [Entitic mass] 29.7 pg Normal 27.0-33.0 [place] [employer] Comment on above: Performed By: #### C MP, CBCAD #### [facility] [address] [place], [place] [id number] MCHC (RBC) [Mass/Vol] 34.4 g/dL Normal 32.0-36.0 [facility] Comment on above: Performed By: #### C MP, CBCAD #### [facility] [address] [place], [place] [id number] MCV (RBC) [Entitic vol] 86 fL Normal 80-100 [facility] Comment on above: Performed By: #### C MP, CBCAD #### [facility] [address] [place], [place] [id number] Monocytes (Bld) [#/Vol] 0.9 10*3/uL Normal 0.2-0.9 [facility] Comment on above: Performed By: #### C MP, CBCAD #### [facility] [address] [place], [place] [id number] Monocytes/100 WBC (Bld) 14.6 % Normal [facility] Comment on above: Performed By: #### C MP, CBCAD #### [facility] [address] [place], [place] [id number] Neutrophils (Bld) [#/Vol] 3.0 10*3/uL Normal 1.5-7.8 [facility] Comment on above: Performed By: #### C MP, CBCAD #### [facility] [address] [place], [place] [id number] Neutrophils/100 WBC (Bld) 50.5 % Normal [facility] [facility] Comment on above: Performed By: #### C MP, CBCAD #### [facility] [address] [place], [place] [id number] Platelet mean volume (Bld) [Entitic vol] 10.90 fL Normal 7.50-12.50 [facility] Specialist Comment on above: Performed By: #### C MP, CBCAD #### [facility] [address] [place], [place] [id number] Platelets (Bld) [#/Vol] 166 10*3/uL Normal 140-400 [facility] Specialist Comment on above: Performed By: #### C MP, CBCAD #### [facility] [address] [place], [place] [id number] RBC (Bld) [#/Vol] 4.89 10*6/uL Normal 4.20-5.80 [facility] Specialist Comment on above: Performed By: #### C MP, CBCAD #### [facility] [address] [place], [place] [id number] RDW-SD 41.2 fL Normal 37.0-50.0 [facility] Specialist Comment on above: Performed By: #### C MP, CBCAD #### [facility] [address] [place], [place] [id number] WBC (Bld) [#/Vol] 5.9 10*3/uL Normal 3.8-11.0 [facility] [employer] Designer Comment on above: Performed By: #### C MP, CBCAD #### [facility] [address] [place], [place] [id number] Comprehensive Metabolic Pane [facility] 07-29-2021 Albumin [Mass/Vol] 4.6 g/dL Normal 3.6-5.1 [facility] [employer]er Comment on above: Performed By: #### C MP, CBCAD #### [facility] [address] [place], [place] [id number] Albumin/Globulin [Mass ratio] 2.7 {ratio} High 1.0-2.5 [facility] Specialist Comment on above: Performed By: #### C MP, CBCAD #### [facility] [address] [place], [place] [id number] ALP [Catalytic activity/Vol] 74 U/L Normal 40-129 [facility] Specialist Comment on above: Performed By: #### C MP, CBCAD #### [facility] [address] [place], [place] [id number] ALT [Catalytic activity/Vol] 55 U/L High 9-46 [facility] Specialist Comment on above: Result Comment: 04/27 Female reference range changed. Performed By: #### C MP, CBCAD #### [facility] [address] [place], [place] [id number] Anion gap [Moles/Vol] 16 mmol/L Normal 12-20 [facility] [employer] Designer Comment on above: Result Comment: [employer] 06/02/2019 reference range changed. Performed By: #### C MP, CBCAD #### [facility] [address] [place], [place] [id number] AST [Catalytic activity/Vol] 39 U/L Normal 10-40 [facility] Comment on above: Performed By: #### C MP, CBCAD #### [facility] [address] [place], [place] [id number] BUN/CREA 13 Ratio Normal 6-22 [facility] Comment on above: Performed By: #### C MP, CBCAD #### [facility] [address] [place], [place] [id number] Calcium [Mass/Vol] 9.0 mg/dL Normal 8.6-10.2 [facility] Comment on above: Performed By: #### C MP, CBCAD #### [facility] [address] [place], [place] [id number] Chloride [Moles/Vol] 107 mmol/L Normal 98-107 [facility] Comment on above: Performed By: #### C MP, CBCAD #### [facility] [address] [place], [place] [id number] CO2 [Moles/Vol] 20 mmol/L Normal 20-31 [facility] Comment on above: Performed By: #### C MP, CBCAD #### [facility] [address] [place], [place] [id number] Creatinine [Mass/Vol] 1.0 mg/dL Normal 0.7-1.4 [facility] Comment on above: Performed By: #### C MP, CBCAD #### [facility] [address] [facility] [place] [id number] eGFRAA 94 mL/min/1.73m2 Normal >60 [facility] Comment on above: Performed By: #### C MP, CBCAD #### [facility] [address] [place], [place] [id number] eGFRNAA 78 mL/min/1.73m2 Normal >60 [facility] Comment on above: Performed By: #### C MP, CBCAD #### [facility] [address] [place], [place] [id number] Globulin (S) [Mass/Vol] 1.7 g/dL Low 1.9-3.7 [facility] Specialist Comment on above: Performed By: #### C MP, CBCAD #### [facility] [address] [place], [place] [id number] Glucose [Mass/Vol] 121 mg/dL High 65-99 [facility] [employer] Commun[employer] Designer Comment on above: Result Comment: For FASTING Glucose --- ADA reference ranges: Normal 65-99 mg/dl Prediabetes 100-125 Diabetes >/= 126 Performed By: #### C MP, CBCAD #### [facility] [address] [place], [place] [id number] Potassium [Moles/Vol] 4.2 mmol/L Normal 3.5-5.5 [facility] Comment on above: Performed By: #### C MP, CBCAD #### [facility] [address] [place], [place] [id number] Protein [Mass/Vol] 6.3 g/dL Normal 6.1-8.1 [facility] Specialist Comment on above: Performed By: #### C MP, CBCAD #### [facility] [address] [place], [place] [id number] Sodium [Moles/Vol] 139 mmol/L Normal 135-146 [facility] S[employer] Communities Designer Comment on above: Performed By: #### C MP, CBCAD #### [facility] [address] [place], [place] [id number] TBIL <0.3 Normal [facility] Comment on above: Performed By: #### C MP, CBCAD #### [facility] [address] [place], [place] [id number] Urea nitrogen [Mass/Vol] 12 mg/dL Normal 7-25 [facility] Specialist Comment on above: Performed By: #### C MP, CBCAD #### [facility] [address] [place], [place] [id number] Microalbumin (with Creat)on 07-29-2021 mALB <1.2 Low [facility] Specialist Comment on above: Result Comment: Unab le to calculate mALB/Crea ratio, mALB is <1.2 mg/dL mALB reference range not established. Performed By: #### m ALBC #### [facility] [address] [place], [place] [id number] UCREA 85 mg/dL Normal 39-259 [facility] [employer] Communities Designer Comment on above: Performed By: #### m ALBC #### [facility] [address] [place], [place] [id number] Prostatic Specific Antigen, Totalon 07-29-2021 TPSA 2.330 ng/mL Normal <4.000 [facility] [employer] Commun[employer] Designer Comment on above: Result Comment: PSA Test Method: ECLIA/Brandi e 601 Performed By: #### P SA #### [facility] [address] [place], [place] [id number] Q - URINALYSIS,COMPLETEon Appearance (U) CLEAR Normal CLEAR [facility] [employer] Commun[employer] Designer Comment on above: Order Comment: [facility] performed at: [employer] [facility], [address] [facility], [address] [place] [address], [id number], Chief Pilot: Rafi Agustin MD [facility] Collection Date/Time: [facility] Results Received Date/Time: [facility] Reported Date/Time: Performed By: #### 3 4F #### [facility] [address] [place] [address] BACTERIA NONE SEEN Normal NONE SEEN [facility] [employer] Commun[employer] Designer Comment on above: Order Comment: [facility] performed at: [employer] [facility], [address] , [address] [place] [address], [id number], Chief Pilot: Rafi Agustin MD [facility] Date/Time: [facility] Results Received Date/Time: [facility] Reported Date/Time: Performed By: #### 3 4F #### [facility] [address] [place] [address] Bilirubin Ql (U) Negative Normal NEGATIVE [facility] S[employer] Commun[employer] Designer Comment on above: Order Comment: [facility] performed at: [employer] [facility], [address] , [address] [place], [place], [address] [place] [address], Chief Pilot: Rafi Agustin MD [facility] Date/Time: [facility] Results Received Date/Time: [facility] Reported Date/Time: Performed By: #### 3 4F #### [facility] [address] [place] [address] Color (U) YELLOW Normal YELLOW [facility] Specialist Comment on above: Order Comment: [facility] performed at: [employer] [employer] [facility], [address] , [address] [place] [address], [address] [place] [address], Chief Pilot: Rafi Agustin MD [facility] Date/Time: [facility] Results Received Date/Time: [facility] Reported Date/Time: Performed By: #### 3 4F #### [facility] [address] [place] [address] Glucose Ql (U) Negative Normal NEGATIVE [facility] S[employer] Commun[employer] Designer Comment on above: Order Comment: [facility] performed at: [employer] [employer] [facility], [address] , [address] [place] [address], [address] [place] [address], Chief Pilot: Rafi Agustin MD [facility] Date/Time: [facility] Results Received Date/Time: [facility] Reported Date/Time: Performed By: #### 3 4F #### [facility] [address] [place] [address] HYALINE CAST NONE SEEN Normal NONE SEEN [facility] S[employer] Commun[employer] Designer Comment on above: Order Comment: [facility] performed at: [employer] [employer] [facility], [address] , [address] [place] [address], [address] [place] [address], Chief Pilot: Rafi Agustin MD [facility] Date/Time: [facility] Results Received Date/Time: [facility] Reported Date/Time: Performed By: #### 3 4F #### [facility] [address] [place] [address] Ketones Ql (U) Negative Normal NEGATIVE [facility] S[employer] Communities Designer Comment on above: Order Comment: [facility] performed at: [facility], [employer] [facility], [address] , [address] [place] [address], [address] [place] [address], Chief Pilot: Rafi Agustin MD [facility] Date/Time: [facility] Results Received Date/Time: [facility] Reported Date/Time: Performed By: #### 3 4F #### [facility] [address] [place] [address] Leukocyte esterase Test strip Ql (U) Negative Normal NEGATIVE [facility] S[employer] Communities Designer Comment on above: Order Comment: [facility] performed at: [facility], [employer] [facility], [address] , [address] [place] [address], [address] [place] [address], Chief Pilot: Rafi Agustin MD [facility] Date/Time: [facility] Results Received Date/Time: [facility] Reported Date/Time: Performed By: #### 3 4F #### [facility] [address] [place] [address] Nitrite Ql (U) Negative Normal NEGATIVE [facility] S[employer] Communities Designer Comment on above: Order Comment: [facility] performed at: [facility], [employer] [facility], [address] , [address] [place] [address], [address] [place] [address], Chief Pilot: Rafi Agustin MD [facility] Date/Time: [facility] Results Received Date/Time: [facility] Reported Date/Time: Performed By: #### 3 4F #### [facility] [address] [place] [address] OCCULT BLOOD Negative Normal NEGATIVE [facility] S[employer] Communities Designer Comment on above: Order Comment: [facility] performed at: [facility], [employer] [facility], [address] , [address] [place] [address], [address] [place] [address], Chief Pilot: Rafi Agustin MD [facility] Date/Time: [facility] Results Received Date/Time: [facility] Reported Date/Time: Performed By: #### 3 4F #### [facility] [address] [place] [address] pH (U) 6.5 [pH] Normal 5.0-8.0 [facility] S[employer] Commun[employer] Designer Comment on above: Order Comment: [facility] performed at: [employer], [employer] [facility], [address] [place] [address], [address] [place] [address], [address] [place] [address], Chief Pilot: Rafi Agustin MD [facility] Date/Time: [facility] Results Received Date/Time: [facility] Reported Date/Time: Performed By: #### 3 4F #### [facility] [address] [place] [address] Protein Ql (U) Negative Normal NEGATIVE [facility] S[employer] Commun[employer] Designer Comment on above: Order Comment: [facility] performed at: [employer] [employer] [facility], [address] [place] [address], [address] [place] [address], [address] [place] [address], Chief Pilot: Rafi Agustin MD [facility] Date/Time: [facility] Results Received Date/Time: [facility] Reported Date/Time: Performed By: #### 3 4F #### [facility] [address] [place] [address] RBC NONE SEEN Normal < OR = 2 [facility] S[employer] Commun[employer] Designer Comment on above: Order Comment: [facility] performed at: [employer] [employer] [facility], [address] [place] [address], [address] [place] [address], [address] [place] [address], Chief Pilot: Rafi Agustin MD [facility] Date/Time: [facility] Results Received Date/Time: [facility] Reported Date/Time: Performed By: #### 3 4F #### [facility] [address] [place] [address] Specific gravity (U) [Rel density] 1.012 Normal 1.001-1.035 [facility] [employer] Designer Comment on above: Order Comment: [facility] performed at: [employer], [employer] [facility], [address] [facility], [address] [place] [address], [address] [place] [address], Chief Pilot: Rafi Agustin MD [facility] Date/Time: [facility] Results Received Date/Time: [facility] Reported Date/Time: Performed By: #### 3 4F #### [facility] [address] [place] [address] SQUAMOUS EPITHELIAL CELLS NONE SEEN Normal < OR = 5 [facility] S[employer] Communities Designer Comment on above: Order Comment: [facility] performed at: [employer] [employer] [facility], [address] [facility], [address] [place] [address], [address] [place] [address], Chief Pilot: Rafi Agustin MD [facility] Date/Time: [facility] Results Received Date/Time: [facility] Reported Date/Time: Performed By: #### 3 4F #### [facility] [address] [place] [address] WBC NONE SEEN Normal < OR = 5 [facility] S[employer] Communities Designer Comment on above: Order Comment: [facility] performed at: [employer] [employer] [facility], [address] [facility], [address] [place] [address], [address] [place] [address], Chief Pilot: Rafi Agustin MD [facility] Date/Time: [facility] Results Received Date/Time: [facility] Reported Date/Time: Performed By: #### 3 4F #### [facility] [address] [place] [address] No Panel Information [facility] Vital Signs Date Time Vital Sign Value Performing Clinician Facility 06-23-2024 14:52-0500 Respiratory rate 16 /min John BAPTISTE [facility] 05-15-2024 08:53-0500 Body height 172.7 cm Rene Cortez MD Work Phone: [facility] 05-15-2024 08:53-0500 Body mass index (BMI) [Ratio] 36.28 kg/m2 Rene Cortez MD Work Phone: [facility] 05-15-2024 08:53-0500 Body weight 108.23 kg Rene Cortez MD Work Phone: [facility] 05-15-2024 08:53-0500 Diastolic blood pressure 66 mm[Hg] Rene Cortez MD Work Phone: [facility] 05-15-2024 08:53-0500 Heart rate 60 /min Rene Cortez MD Work Phone: [facility] 05-15-2024 08:53-0500 Systolic blood pressure 124 mm[Hg] Rene Cortez MD Work Phone: [facility] 05-07-2024 17:27-0500 Body mass index (BMI) [Ratio] 36.67 kg/m2 Gurjit Busby POUNCER MACHINE Work Phone: [facility] 05-07-2024 17:27-0500 Body temperature 97.3 [degF] Gurjit Busby POUNCER MACHINE Work Phone: [facility] 05-07-2024 17:27-0500 Body weight 109.41 kg Gurjitlola Busby POUNCER MACHINE Work Phone: [facility] 05-07-2024 17:27-0500 Diastolic blood pressure 80 mm[Hg] Gurjit Busby POUNCER MACHINE Work Phone: [facility] 05-07-2024 17:27-0500 Heart rate 73 /min Gurjit Busby POUNCER MACHINE Work Phone: [facility] 05-07-2024 17:27-0500 SaO2% (BldA) [Mass fraction] 97 % Gurjit Busby POUNCER MACHINE Work Phone: [facility] 05-07-2024 17:27-0500 Systolic blood pressure 138 mm[Hg] Gurjit Busby POUNCER MACHINE Work Phone: [facility] 04-28-2024 11:59-0500 Blood Pressure Location SU ADRIÁN [facility] 04-28-2024 11:59-0500 Diastolic blood pressure 68 mm[Hg] SU ADRIÁN [facility] 04-28-2024 11:59-0500 Heart rate 63 /min SU ADRIÁN [facility] 04-28-2024 11:59-0500 Systolic blood pressure 111 mm[Hg] SU ADRIÁN [facility] 04-16-2024 10:11-0500 Diastolic blood pressure 72 mm[Hg] SU ADRIÁN [facility] 04-16-2024 10:11-0500 Mean blood pressure 90 mm[Hg] SU ADRIÁN [facility] 04-16-2024 10:11-0500 Systolic blood pressure 126 mm[Hg] SU ADRIÁN [facility] 04-16-2024 09:45-0500 Blood Pressure Location SU ADRIÁN [facility] 04-16-2024 09:45-0500 Body temperature 98.6 [degF] SU ADRIÁN [facility] 04-16-2024 09:45-0500 Diastolic blood pressure 80 mm[Hg] SU ADRIÁN [facility] 04-16-2024 09:45-0500 Heart rate 65 /min SU ADRIÁN [facility] 04-16-2024 09:45-0500 Systolic blood pressure 148 mm[Hg] SU COOK [facility] 03-26-2024 13:03-0400 Body height 172.7 cm Sera Flower MD Work Phone: [facility] 03-26-2024 13:03-0400 Body mass index (BMI) [Ratio] 35.88 kg/m2 Sera Flower MD Work Phone: [facility] 03-26-2024 13:03-0400 Body weight 107.05 kg Sera Flower MD Work Phone: [facility] 03-26-2024 13:03-0400 Diastolic blood pressure 80 mm[Hg] Sera Flower MD Work Phone: [facility] 03-26-2024 13:03-0400 Heart rate 77 /min Sera Flower MD Work Phone: [facility] 03-26-2024 13:03-0400 SaO2% (BldA) [Mass fraction] 96 % Sera Flower MD Work Phone: [facility] 03-26-2024 13:03-0400 Systolic blood pressure 122 mm[Hg] Sera Flower MD Work Phone: [facility] 02-27-2024 10:29-0400 Body height 172.7 cm Sally Risaliti POUNCER MACHINE Work Phone: [facility] 02-27-2024 10:29-0400 Body mass index (BMI) [Ratio] 35.43 kg/m2 Sally Risaliti POUNCER MACHINE Work Phone: [facility] 02-27-2024 10:29-0400 Body weight 105.69 kg Sally Risaliti POUNCER MACHINE Work Phone: [facility] 02-27-2024 10:29-0400 Diastolic blood pressure 84 mm[Hg] Sally Risaliti POUNCER MACHINE Work Phone: [facility] 02-27-2024 10:29-0400 Heart rate 67 /min Sally Ba POUNCER MACHINE Work Phone: [facility] 02-27-2024 10:29-0400 SaO2% (BldA) [Mass fraction] 97 % Sally Ba POUNCER MACHINE Work Phone: [facility] 02-27-2024 10:29-0400 Systolic blood pressure 132 mm[Hg] Sally Ba POUNCER MACHINE Work Phone: [facility] 10-18-2023 09:25-0400 Body height 172.7 cm Rene Cortez MD Work Phone: [facility] 10-18-2023 09:25-0400 Body mass index (BMI) [Ratio] 36.31 kg/m2 Rene Cortez MD Work Phone: [facility] 10-18-2023 09:25-0400 Body weight 108.32 kg Rene Cortez MD Work Phone: [facility] 10-18-2023 09:25-0400 Diastolic blood pressure 76 mm[Hg] Rene Cortez MD Work Phone: [facility] 10-18-2023 09:25-0400 Heart rate 68 /min Rene Cortez MD Work Phone: [facility] 10-18-2023 09:25-0400 Systolic blood pressure 120 mm[Hg] Rene Cortez MD Work Phone: [facility] 06-30-2023 10:23-0500 Body mass index (BMI) [Ratio] 35.28 kg/m2 Hosea Snyder DO Work Phone: [facility] 06-30-2023 10:23-0500 Body temperature 97.81 [degF] Hosea Snyder DO Work Phone: [facility] 06-30-2023 10:23-0500 Body weight 105.23 kg Hosea Snyder DO Work Phone: [facility] 06-30-2023 10:23-0500 Diastolic blood pressure 82 mm[Hg] Hosea Snyder DO Work Phone: [facility] 06-30-2023 10:23-0500 Heart rate 86 /min Hosea Snyder DO Work Phone: [facility] 06-30-2023 10:23-0500 Respiratory rate 18 /min Hosea Snyder DO Work Phone: [facility] 06-30-2023 10:23-0500 SaO2% (BldA) [Mass fraction] 94 % Hosea Snyder DO Work Phone: [facility] 06-30-2023 10:23-0500 Systolic blood pressure 138 mm[Hg] Hosea Snyder DO Work Phone: [facility] 06-14-2023 14:25-0500 Body temperature 97.7 [degF] MD Sera Flower Work Phone: [facility] 06-14-2023 14:25-0500 Diastolic blood pressure 74 mm[Hg] MD Sera Flower Work Phone: [facility] 06-14-2023 14:25-0500 Heart rate 78 /min MD Sera Flower Work Phone: [facility] 06-14-2023 14:25-0500 Respiratory rate 20 /min MD Sera Flower Work Phone: [facility] 06-14-2023 14:25-0500 SaO2% (BldA) [Mass fraction] 95 % MD Sera Flower Work Phone: [facility] 06-14-2023 14:25-0500 Systolic blood pressure 155 mm[Hg] MD Sera Flower Work Phone: [facility] 06-14-2023 11:48-0500 Body height 172.72 cm MD Sera Flower Work Phone: [facility] 06-14-2023 11:48-0500 Body weight 108.9 kg MD Sera Flower Work Phone: [facility] 03-23-2023 09:34-0400 Body height 172.7 cm Rene Cortez MD Work Phone: [facility] 03-23-2023 09:34-0400 Body mass index (BMI) [Ratio] 35.12 kg/m2 Rene Cortez MD Work Phone: [facility] 03-23-2023 09:34-0400 Body weight 104.78 kg Rene Cortez MD Work Phone: [facility] 03-23-2023 09:34-0400 Diastolic blood pressure 72 mm[Hg] Rene Cortez MD Work Phone: [facility] 03-23-2023 09:34-0400 Heart rate 60 /min Rene Cortez MD Work Phone: [facility] 03-23-2023 09:34-0400 Systolic blood pressure 128 mm[Hg] Rene Cortez MD Work Phone: [facility] 09-07-2022 11:31-0400 Body height 172.72 cm Sera Flower Work Phone: YB-Ftvdqubmuv-Znpuq daniel 250 DO Work Phone: 09-07-2022 11:31-0400 Body mass index (BMI) [Ratio] 36.8 kg/m2 Sera Flower Work Phone: YE-Mdnbfamapp-Fzclr daniel 250 DO Work Phone: 09-07-2022 11:31-0400 Body surface area Derived from formula 2.22 m2 Sera Flower Work Phone: JU-Qsagavpvmt-Ulhrk daniel 250 DO Work Phone: 09-07-2022 11:31-0400 Body weight 109.77 kg Sera Jimenez Ching Work Phone: FG-Ckgmxughdn-Jhidl daniel 250 DO Work Phone: 09-07-2022 11:31-0400 Diastolic blood pressure 68 mm[Hg] Sera Flower Work Phone: AD-Opxgfzcyfe-Hnlpu daniel 250 DO Work Phone: 09-07-2022 11:31-0400 Heart rate 76 /min Sera Flower Work Phone: WE-Qtbprffbap-Hvkci daniel 250 DO Work Phone: 09-07-2022 11:31-0400 Systolic blood pressure 124 mm[Hg] Sera Flower Work Phone: UO-Cngohrbuey-Dujeo daniel 250 DO Work Phone: 09-05-2021 14:04-0400 Body height 172.72 cm Sera Flower Work Phone: [facility] 250 DO Work Phone: 09-05-2021 14:04-0400 Body mass index (BMI) [Ratio] 36.49 kg/m2 Sera Flower Work Phone: [facility] 250 DO Work Phone: 09-05-2021 14:04-0400 Body surface area Derived from formula 2.21 m2 Sera Flower Work Phone: [facility] 250 DO Work Phone: 09-05-2021 14:04-0400 Body weight 108.86 kg Sera Flower Work Phone: [facility] [place] 250 DO Work Phone: 09-05-2021 14:04-0400 Diastolic blood pressure 82 mm[Hg] Sera Flower Work Phone: [facility] 250 DO Work Phone: 09-05-2021 14:04-0400 Heart rate 70 /min Sera Flower Work Phone: [facility] 250 DO Work Phone: 09-05-2021 14:04-0400 Systolic blood pressure 132 mm[Hg] Sera Flower Work Phone: [facility] 250 DO Work Phone: Encounters Encounter Date Encounter Type Care Provider Facility Start: 06-23-2024 End: 06-23-2024 ambulatory John BAPTISTE Facility:[facility] Start: 06-23-2024 End: 06-23-2024 Patient encounter procedure John Hasuer BENNY [facility] [place] Start: 05-15-2024 End: 05-15-2024 Office outpatient visit 25 minutes Rene Cortez MD Work Phone: [facility] Comment on above: Coronary artery dise ase involving [place] coronary artery of [place] heart without angina pectoris (Primary Dx); Essential hypertension; Ischemic cardiomyopathy; Mixed hyperlipidemia; Status post coronary artery stent placement; Former smoker; BMI 36.0-36.9,adult; Class 2 obesity Start: 05-15-2024 End: 05-15-2024 ambulatory RENE Porter [facility] Ambulatory Start: 05-07-2024 End: 05-07-2024 ambulatory GURJIT BUSBY Not Available Start: 05-07-2024 End: 05-07-2024 Office outpatient visit 15 minutes Gurjit Busby NP Work Phone: [facility] Comment on above: Non-recurrent acute serous otitis media of right ear (Primary Dx) Start: 04-28-2024 End: 04-28-2024 ambulatory SU COOK Facility:[facility] Start: 04-28-2024 End: 04-28-2024 Patient encounter procedure SU COOK [facility] [place] Start: 04-25-2024 End: 04-25-2024 Lab Drop off SU COOK [facility] Start: 04-25-2024 End: 04-25-2024 ambulatory SU COOK Facility:[facility] Start: 04-25-2024 End: 04-25-2024 Patient encounter procedure SU COOK [facility] [place] Start: 04-16-2024 End: 04-16-2024 ambulatory SERA FLOWER Facility:[facility] Start: 04-16-2024 End: 04-16-2024 Patient encounter procedure SU COOK [facility] [place] Start: 03-26-2024 End: 03-26-2024 Office outpatient visit 25 minutes Sera Flower MD Work Phone: [facility] Comment on above: Essential hypertensi on (CMS/HCC) (Primary Dx); Chronic systolic congestive heart failure (CMS/HCC); Coronary artery disease involving [place] coronary artery of [place] heart without angina pectoris (CMS/HCC); Chronic obstructive pulmonary disease, unspecified COPD type (CMS/HCC); Pure hypercholesterolemia (CMS/HCC); Prediabetes; Elevated PSA; Benign prostatic hyperplasia without urinary obstruction; Bacterial pneumonia; Sinus drainage Start: 03-26-2024 End: 03-26-2024 ambulatory SERA Barbara CHING Not Available Start: 03-05-2024 ambulatory SU COOK Facility :[facility] Start: 02-27-2024 End: 02-27-2024 Transitional care manage srvc 7 day discharge Sally Ba POUNCER MACHINE Work Phone: [facility] Comment on above: Sepsis, due to unspe cified organism, unspecified whether acute organ dysfunction present (CMS/HCC) (Primary Dx); Pneumonia of right middle lobe due to infectious organism; Hyponatremia; Essential hypertension (CMS/HCC); Chronic systolic congestive heart failure (CMS/HCC); Coronary artery disease involving [place] coronary artery of [place] heart without angina pectoris (CMS/HCC); Gastroesophageal reflux disease without esophagitis; Benign prostatic hyperplasia without urinary obstruction Start: 02-27-2024 End: 02-27-2024 ambulatory SALLY BA Not Available Start: 02-18-2024 End: 02-19-2024 Clinisync Result Encounter Shaikh Balwinder SHELLEY Work Phone: [facility] Unsolicited Start: 02-18-2024 End: 02-19-2024 Clinisync Result Encounter Shaikh Balwinder SHELLEY Work Phone: [facility] Unsolicited Start: 02-17-2024 End: 02-20-2024 Clinisync Result Encounter Generic External Data Provider [facility] Unsolicited Start: 02-17-2024 End: 02-20-2024 Clinisync Result Encounter Generic External Data Provider [facility] Unsolicited Start: 02-15-2024 End: 02-18-2024 Clinisync Result Encounter Generic External Data Provider [facility] Unsolicited Start: 02-15-2024 End: 02-18-2024 Clinisync Result Encounter Generic External Data Provider [facility] Unsolicited Start: 2024 End: 2024 ambulatory BENJY AMEZQUITAROSALEE Not Available Start: 10-18-2023 End: 10-18-2023 Office outpatient visit 25 minutes Rene Cortez MD Work Phone: [facility] Comment on above: Coronary artery dise ase involving [place] coronary artery of [place] heart without angina pectoris (Primary Dx); Essential hypertension; Mixed hyperlipidemia; Ischemic cardiomyopathy; Status post coronary artery stent placement; Class 2 obesity with body mass index (BMI) of 35.0 to 35.9 in adult, unspecified obesity type, unspecified whether serious comorbidity present; Former smoker Start: 10-18-2023 End: 10-18-2023 ambulatory RENE Porter [facility] Ambulatory Start: 09-20-2023 End: 09-20-2023 ambulatory SERA FLOWER Not Available Start: 07-30-2023 End: 07-30-2023 ambulatory SERA FLOWER Not Available Start: 06-30-2023 End: 06-30-2023 ambulatory HOSEA SNYDER Not Available Start: 06-30-2023 End: 06-30-2023 Office outpatient visit 25 minutes Hosea Snyder DO Work Phone: [facility] Comment on above: Acute exacerbation o f chronic obstructive pulmonary disease (CMS/HCC) (Primary Dx) Start: 06-27-2023 End: 06-27-2023 ambulatory SERA FLOWER Not Available Start: 06-14-2023 End: 06-14-2023 Emergency department patient visit Jasper Gross Facility:[facility] Start: 06-14-2023 End: 06-14-2023 Emergency department patient visit MD Sera Flower Work Phone: [facility] Work Phone: Start: 06-14-2023 End: 06-14-2023 ambulatory RENZO WEAVER Not Available Start: 05-19-2023 End: 05-19-2023 ambulatory BRITTANY FIGUEROA Not Available Start: 03-23-2023 End: 03-23-2023 Office outpatient visit 25 minutes Rene Cortez MD Work Phone: [facility] Comment on above: Coronary artery dise ase involving [place] coronary artery of [place] heart without angina pectoris; Essential hypertension; Mixed hyperlipidemia; Ischemic cardiomyopathy; Status post coronary artery stent placement; Class 2 obesity with body mass index (BMI) of 35.0 to 35.9 in adult, unspecified obesity type, unspecified whether serious comorbidity present Start: 02-06-2023 Other Sera Flower Work Phone: [facility] 250 DO Work Phone: Start: 02-05-2023 End: 02-05-2023 ambulatory Rene Cortez Facility:[facility] Start: 02-05-2023 End: 02-05-2023 ambulatory MD Sera Flower Work Phone: [facility] Work Phone: Start: 02-05-2023 End: 02-05-2023 Patient encounter procedure MD Sera Flower Work Phone: [facility] Work Phone: Start: 02-05-[address] Sera murphy Isabella Facility:[id number] Start: 01-30-2023 AUDIT Sera Flower Work Phone: [facility] 600 DO Work Phone: Start: 01-15-2023 Other Sera Flower Work Phone: [facility] 250 DO Work Phone: Start: 01-12-2023 Chart Update Sera Flower Work Phone: [facility] 250 DO Work Phone: Start: 01-04-[address] Sera Flower Facility:[id number] Start: 01-03-[address] Sera Flower Facility:[id number] Start: 11-14-2022 End: 11-14-2022 ambulatory DEANDRA BENDER Facility:[facility] Start: 11-14-2022 End: 11-14-2022 Patient encounter procedure Deandra Bender MD Work Phone: Ophthalmology Comment on above: Clonic hemifacial sp asm, right (Primary Dx) Start: 09-07-2022 Office outpatient vi sit 25 minutes Sera Flower Work Phone: [facility] 250 DO Work Phone: Start: 09-07-2022 ambulatory Rene Cortez Facility :[id number] Start: 08-08-2022 End: 08-08-2022 ambulatory DEANDRA BENDER Facility:[facility] Start: 08-08-2022 End: 08-08-2022 Patient encounter procedure Deandra Bender MD Work Phone: Ophthalmology Comment on above: Clonic hemifacial sp asm, right (Primary Dx) Start: 06-21-2022 Telephone encounter Deandra Bender MD Work Phone: [facility] [place] Comment on above: Orders Start: 06-21-2022 End: 06-21-2022 ambulatory DEANDRA BENDER Facility:[facility] Start: 06-21-2022 End: 06-21-2022 Patient encounter procedure Deandra Bender MD Work Phone: Ophthalmology Comment on above: Clonic hemifacial sp asm, right (Primary Dx); Paralytic strabismus; Jada's syndrome Start: 05-01-2022 End: 05-01-2022 ambulatory MAU RANDLE Facility:[facility] Start: 05-01-2022 End: 05-01-2022 Patient encounter procedure Mau Randle OD Work Phone: Ophthalmology Comment on above: Eyelid myokymia (Velma maren Dx); Dry eye syndrome of both eyes; Hyperopia of both eyes with astigmatism and presbyopia Start: 09-05-2021 Office outpatient vi sit 25 minutes Sera Flower Work Phone: [facility] 250 DO Work Phone: Procedures Date Procedure Procedure Detail Performing Clinician Start: 06-23-2024 Cystoscopy John BENNY Start: 02-18-2024 GRAM STAIN EVALUATION Shaikh Balwinder SHELLEY Work Phone: Start: 02-18-2024 Leukocytes [#/volume] in Blood Shaikh Balwinder SHELLEY Work Phone: Start: 02-18-2024 LOWER RESPIRATORY CULTURE Shaikh Balwinder SHELLEY Work Phone: Start: 02-17-2024 BLOOD CULTURE 2 Generic External Andres a Provider Start: 02-17-2024 BLOOD CULTURE 1 Generic External Andres a Provider Start: 02-15-2024 BLOOD CULTURE 2 Generic External Andres a Provider Start: 02-15-2024 BLOOD CULTURE 1 Generic External Andres a Provider Start: 09-14-2023 Lipid 1996 panel - Serum or Plasma Rene Cortez MD Work Phone: Start: 06-14-2023 SARS-CoV-2, Influenza & RSV (PCR) MD Sera Flower Work Phone: Start: 06-14-2023 Plain chest X-ray MD Sera Flower Work Phone: Start: 03-20-2023 Echocardiography Generic Provider Scanning Start: 02-13-2023 History of placement of stent for coronary artery disease Status post coronary artery stent placement Rene Cortez MD Work Phone: Start: 11-14-2022 [facility] innervated facial nrv unil Deandra Bender MD Work Phone: Start: 08-08-2022 [facility] innervated facial nrv unil Evelia Huffman RETAIL GREETER.PULP REFINER OPERATOR Work Phone: Start: 07-28-2019 Colonoscopy Hosea Snyder DO Work Phone: Colonoscope, device (physical object) SU COOK Hernia repair SU ADRIÁN History of placement of stent for coronary artery disease Status post coronary artery stent placement Sera Flower Work Phone: History of placement of stent for coronary artery disease Status post coronary artery stent placement Rene Cortez MD Work Phone: History of placement of stent for coronary artery disease Status post coronary artery stent placement Rene Cortez MD Work Phone: History of placement of stent for coronary artery disease Status post coronary artery stent placement Rene Cortez MD Work Phone: Percutaneous translu vijay coronary angioplasty Sera Flower Work Phone: Placement of stent i n coronary artery Sera Flower Work Phone: Repair of shoulder Sera Flower Work Phone: Plan of Treatment Date Care Activity Detail Author Start: 07-27-2029 Screening for malignant neoplasm of colon [facility] Start: 09-13-2028 Lipid panel Lipid Panel [facility] Start: 08-11-2027 DTaP/Tdap/Td Vaccines (2 - Td or Tdap) DTaP/Tdap/Td Vaccines (2 - Td or Tdap) [facility] Start: 01-06-2025 End: 01-06-2025 Patient encounter procedure 01/06/2025 10:20 AM EDT Office Visit [address] [phone] Rene Cortez MD [address] [place] [address] [facility] Start: 09-24-2024 End: 09-24-2024 Patient encounter procedure 09/24/2024 1:30 PM EDT Office Visit [facility] [address] [place] [phone] Sally Ba NP [address] [place] [address] [facility] Start: 09-19-2024 Medicare Annual Wellness (AWV) Medicare Annual Wellness (AWV) [facility] Start: 05-15-2024 End: 05-15-2024 Patient encounter procedure 05/15/2024 9:10 AM EST Office Visit [facility] [address] [place] [phone] Rene Cortez MD [address] [place] [address] [facility] Start: 04-25-2024 End: 02-26-2025 XR Chest 2 Views XR chest 2 views Imaging Routine Pneumonia of right middle lobe due to infectious organism Expected: 04/25/2024, Expires: 02/26/2025 [facility] Work Phone: Comment on above: Expected: 04/25/2024, Expires: Start: 03-26-2024 End: 03-26-2024 Patient encounter procedure 03/26/2024 1:00 PM EDT Office Visit [facility] [address] [place] [phone] Sera Flower MD [address] [place] [address] [facility] Start: 03-20-2024 Echocardiography [facility] Start: 02-27-2024 End: 02-27-2024 Patient encounter procedure 02/27/2024 10:45 AM EDT Office Visit [facility] [address] [place] [phone] Sally Ba NP [address] [place] [address] [facility] Start: 01-27-2024 COVID-19 Vaccine ( season) COVID-19 Vaccine () [facility] Start: 01-27-2024 Influenza vaccination [facility] Start: 10-18-2023 End: 10-18-2023 Patient encounter procedure 10/18/2023 9:30 AM EDT Office Visit [facility] [address] [place] [address] Rene Cortez MD [address] [place] [address] [facility] Start: 09-20-2023 End: 09-20-2023 Patient encounter procedure 09/20/2023 1:00 PM EDT Office Visit [facility] [address] [place] [phone] Sera Flower MD [address] [place] [address] [facility] Start: 03-23-2023 End: 03-23-2024 Alanine aminotransferase [Enzymatic activity/volume] in Serum or Plasma by With P-5'-P Alanine Aminotransferase Lab Routine Coronary artery disease involving [place] coronary artery of [place] heart without angina pectoris Essential hypertension Mixed hyperlipidemia Ischemic cardiomyopathy Status post coronary artery stent placement Class 2 obesity with body mass index (BMI) of 35.0 to 35.9 in adult, unspecified obesity type, unspecified whether serious comorbidity present Expected: 03/23/2023 (Approximate), Expires: 03/23/2024 [facility] Work Phone: Comment on above: Expected: 03/23/2023 (Approximate), Expi res: 03/23/2024 Start: 03-23-2023 End: 03-23-2024 Aspartate aminotransferase [Enzymatic activity/volume] in Serum or Plasma by With P-5'-P Aspartate Aminotransferase Lab Routine Coronary artery disease involving [place] coronary artery of [place] heart without angina pectoris Essential hypertension Mixed hyperlipidemia Ischemic cardiomyopathy Status post coronary artery stent placement Class 2 obesity with body mass index (BMI) of 35.0 to 35.9 in adult, unspecified obesity type, unspecified whether serious comorbidity present Expected: 03/23/2023 (Approximate), Expires: 03/23/2024 [facility] Work Phone: Comment on above: Expected: 03/23/2023 (Approximate), Expi res: 03/23/2024 Start: 03-23-2023 End: 03-23-2024 Basic metabolic 2000 panel - Serum or Plasma Basic Metabolic Panel Lab Routine Coronary artery disease involving [place] coronary artery of [place] heart without angina pectoris Essential hypertension Mixed hyperlipidemia Ischemic cardiomyopathy Status post coronary artery stent placement Class 2 obesity with body mass index (BMI) of 35.0 to 35.9 in adult, unspecified obesity type, unspecified whether serious comorbidity present Expected: 03/23/2023 (Approximate), Expires: 03/23/2024 [facility] Work Phone: Comment on above: Expected: 03/23/2023 (Approximate), Expi res: 03/23/2024 Start: 03-23-2023 End: 03-23-2024 CBC panel - Blood by Automated count CBC Lab Routine Coronary artery disease involving [place] coronary artery of [place] heart without angina pectoris Essential hypertension Mixed hyperlipidemia Ischemic cardiomyopathy Status post coronary artery stent placement Class 2 obesity with body mass index (BMI) of 35.0 to 35.9 in adult, unspecified obesity type, unspecified whether serious comorbidity present Expected: 03/23/2023 (Approximate), Expires: 03/23/2024 [facility] Service Area Work Phone: Comment on above: Expected: 03/23/2023 (Approximate), Expi res: 03/23/2024 Start: 03-23-2023 End: 03-23-2024 Lipid 1996 panel - Serum or Plasma Lipid Panel Lab Routine Coronary artery disease involving [place] coronary artery of [place] heart without angina pectoris Essential hypertension Mixed hyperlipidemia Ischemic cardiomyopathy Status post coronary artery stent placement Class 2 obesity with body mass index (BMI) of 35.0 to 35.9 in adult, unspecified obesity type, unspecified whether serious comorbidity present Expected: 03/23/2023 (Approximate), Expires: 03/23/2024 [facility] Work Phone: Comment on above: Expected: 03/23/2023 (Approximate), Expi res: 03/23/2024 Start: 03-15-2023 FUV, Provider: Rene Cortez, Status: Pen, Time: 9:20 AM FUV, Provider: Rene Cortez, Status: Pen, Time: 9:20 AM [facility] 250 DO Work Phone: Start: 01-26-2023 COVID-19 Vaccine ( season) COVID-19 Vaccine ( season) [facility] Start: 01-26-2023 Influenza vaccination [facility] Start: 09-07-2022 FUV, Provider: Rene Cortez, Status: Pen, Time: 8:30 AM FUV, Provider: Rene Cortez, Status: Pen, Time: 8:[address] [facility] 250 DO Work Phone: Start: 08-02-2022 Medicare Annual Wellness Visit Medicare Annual Wellness Visit (AWV) [facility] Start: 05-28-2022 ADVANCE DIRECTIVE DISCUSSION ADVANCE DIRECTIVE DISCUSSION [facility] Start: 05-28-2022 DEPRESSION ASSESSMENT DEPRESSION ASSESSMENT [facility] Start: 01-26-2022 Influenza vaccination INFLUENZA (#1) [facility] Start: 05-28-2021 ADVANCE DIRECTIVE DISCUSSION ADVANCE DIRECTIVE DISCUSSION [facility] Start: 05-28-2021 DEPRESSION ASSESSMENT DEPRESSION ASSESSMENT [facility] Start: 2018 Abdominal aortic aneurysm screening Abdominal Aortic Aneurysm (AAA) Screening [facility] Start: 2018 PNEUMOCOCCAL: 65+ (1 - PCV) PNEUMOCOCCAL: 65+ (1 - PCV) [facility] Start: 02-15-2017 Zoster Vaccines (2 of 3) Zoster Vaccines (2 of 3) [facility] Start: 2013 RSV High Risk: (Elderly (60+) or Population) (1 - Risk 60-74 years 1-dose series) RSV High Risk: (Elderly (60+) or Population) (1 - Risk 60-74 years 1-dose series) [facility] Start: 2013 RSV patients and/or patients aged 60+ years (1 - 1-dose 60+ series) RSV patients and/or patients aged 60+ years (1 - 1-dose 60+ series) [facility] Start: 2003 SHINGRIX VACCINE (1 of 2) SHINGRIX VACCINE (1 of 2) [facility] Start: 1998 COLOGUARD (FIT-DNA) COLOGUARD (FIT-DNA) [facility] Start: 1998 Colonoscopy COLONOSCOPY [facility] Start: 1998 COLORECTAL CANCER SCREENING COLORECTAL CANCER SCREENING [facility] Start: [address] COLONOGRAPHY [facility] Start: 1998 DIABETES SCREEN DIABETES SCREEN [facility] Start: 1998 FECAL OCCULT BLOOD FECAL OCCULT BLOOD [facility] Start: 1998 SIGMOIDOSCOPY SIGMOIDOSCOPY [facility] Start: 01-02-1988 LIPID SCREEN LIPID SCREEN [facility] Start: 01-02-1972 Urine microalbumin profile DTAP,TDAP,TD (1 - Tdap) [facility] Start: 1971 Diabetes mellitus screening Diabetes Screening [facility] Start: 1971 HEPATITIS C SCREENING HEPATITIS C SCREENING [facility] Start: 1971 Hepatitis C screening Hepatitis C Screening [facility] Start: 1953 COVID-19 VACCINE (#1) COVID-19 VACCINE (#1) [facility] Start: 1953 Creatinine measurement Creatinine Level [facility] Start: 1953 Lipid panel Lipid Panel [facility] Start: 1953 Medicare Annual Wellness Visit Medicare Annual Wellness Visit (AWV) [facility] Start: 1953 Potassium measurement Potassium Level [facility] Start: 1953 Screening for malignant neoplasm of colon [facility] Basic metabolic 1998 panel - Serum or Plasma Basic metabolic panel Lab Routine Hyponatremia Essential hypertension (CMS/HCC) Ordered: 02/27/2024 [facility] Comment on above: Ordered: 02/27/2024 BLOOD CULTURE 1 BLOOD CULTURE 1 Lab Routine 02/15/2024 4:07 PM EDT [facility] BLOOD CULTURE 1 BLOOD CULTURE 1 Lab Routine 02/17/2024 10:40 AM EDT [facility] BLOOD CULTURE 2 BLOOD CULTURE 2 Lab Routine 02/15/2024 4:14 PM EDT [facility] BLOOD CULTURE 2 BLOOD CULTURE 2 Lab Routine 02/17/2024 11:00 AM EDT [facility] LOWER RESPIRATORY CULTURE LOWER RESPIRATORY CULTURE Lab Routine 02/18/2024 7:25 AM EDT [facility] Work Phone: End: 07-21-2023 Mri brain brain stem w/o w/contrast material MRI BRAIN WO/W IVCON Radiology Routine Paralytic strabismus 1 Occurrences starting 06/21/2022 until 07/21/2023 [facility] Work Phone: Comment on above: 1 Occurrences starting 06/21/2022 until 07/21/2023 End: 07-21-2023 Mri orbit face & neck w/o & w/contrast matrl MRI SOFT TISSUE NECK WO/W IVCON Radiology Routine 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 07/21/2023 [facility] Work Phone: Comment on above: 1 Occurrences starting 06/21/2022 until 07/21/2023 Patient Education COPD Exacerbat ion, Adult ED [facility] Work Phone: Patient referral [facility] Work Phone: PSA, total and free PSA, total a nd free Lab Routine Benign prostatic hyperplasia without urinary obstruction Ordered: 02/27/2024 [facility] Work Phone: Comment on above: Ordered: 02/27/2024 [facility] Immunizations Immunization Date Immunization Notes Care Provider Sharron baron 04-16-2019 Seasonal trivalent influenza vaccine, adjuvanted, preservative free Sera Barbara Hill Work Phone: [place] [address] DO Work Phone: 04-16-2019 influenza virus vacc ine, unspecified formulation Rene Cortez MD Work Phone: [facility] 03-28-2019 influenza virus vacc ine, unspecified formulation Sera Flower Work Phone: [place] [address] DO Work Phone: 08-16-2018 influenza virus vacc ine, unspecified formulation John BAPTISTE [facility] 08-16-2018 influenza, seasonal, injectable, preservative free Sera Flower Work Phone: [place] [address] DO Work Phone: 08-16-2018 pneumococcal conjuga te vaccine, 13 valent Sera Flower Work Phone: [place] [address] DO Work Phone: 05-28-2018 pneumococcal polysaccharide vaccine, 23 valent Sera Flower Work Phone: [place] [address] DO Work Phone: 08-10-2017 tetanus toxoid, redu daniel diphtheria toxoid, and acellular pertussis vaccine, adsorbed Sera Flower Work Phone: [place] [address] DO Work Phone: 12-21-2016 zoster vaccine, live Sera Flower Work Phone: [place] [address] DO Work Phone: 09-30-2012 pneumococcal polysaccharide vaccine, [address] Sera Flower Work Phone: [place] [address] DO Work Phone: 09-30-2012 pneumococcal vaccine , unspecified formulation Hosea Snyder DO Work Phone: [facility] 05-28-2010 influenza virus vacc ine, unspecified formulation Rene Cortez MD Work Phone: [facility] Work Phone: 03-28-2010 influenza, seasonal, injectable, preservative free Rene Cortez MD Work Phone: [facility] Work Phone: 2007 TD(adult) unspecifie d formulation; Translations: [Td(adult) unspecified formulation] Hosea Snyder DO Work Phone: [facility] influenza virus vacc ine, unspecified formulation Sera Flower Work Phone: [place] [address] DO Work Phone: Comment on above: Mar 20102010 Payers Date Payer Category Payer Private Health Insurance HUMANA HUMANA HMO/POS [id number] 2023-Present [address] [address] [place] [address] [id number] 2023 (JD) [id number] 2023 Self-pay [id number] 2022 Department of [facility] e ( and others) [id number] 2022 Medicare (Managed Care) 1.2. [id number] 2022 For Life (TFL) F OR LIFE [id number] .[id number] 2022 [employer] [place] ( and others) [id number] 2022 Medicare [id number] 2021 [employer] [place] ( and others) [id number] 2021 Unknown 2017 Medicare [id number] 2017 Medicare [id number] 1953 Unknown [id number] 2.16.840.1.112821.3.579.2 .356 1953 Unknown [id number] 2.16.840.1.591171.3.579.2 .356 1953 Unknown [id number] 2.16.840.1.840761.3.579.2 .8 1953 Unknown [id number] 2.16.840.1.605688.3.579.2 .1068 1953 Unknown [id number] 2.16.840.1.999037.3.579.2 .727 1953 Unknown [id number] 2.16.840.1.755430.3.579.2 .727 1953 Unknown [id number] 2.16.840.1.069989.3.579.2 .727 1953 Unknown [id number] 2.16.840.1.581571.3.579.2 .727 1953 Unknown [id number] 2.16.840.1.647606.3.579.2 .1259 1953 Unknown [id number] 2.16.840.1.841427.3.579.2 .1259 1953 Unknown [id number] 2.16.840.1.058726.3.579.2 .1259 1953 Unknown [id number] 2.16.840.1.956400.3.579.2 .1259 1953 Unknown [id number] 2.16.840.1.823024.3.579.2 .1259 1953 Unknown [id number] 2.16.840.1.375780.3.579.2 .1259 1953 Unknown [id number] 2.16.840.1.563018.3.579.2 .1259 1953 Unknown [id number] 2.16.840.1.817676.3.579.2 .1259 1953 Unknown [id number] 2.16.840.1.539421.3.579.2 .1259 1953 Unknown [id number] 2.16.840.1.110301.3.579.2 .1259 1953 Unknown [id number] 2.16.840.1.975878.3.579.2 .1244 1953 Unknown [id number] 2.16.840.1.392468.3.579.2 .1244 1953 Unknown [id number] 2.16.840.1.976434.3.579.2 .727 [employer] ( and others) [id number] Unknown [id number] 2.16.840.1.308462.3.579.2 .531 Unknown [id number] 2.16.840.1.267022.3.579.2 .531 Social History Date Type Detail Facility Start: 03-23-2023 End: 05-15-2024 No alcohol use No alcohol use [facility] Comment on above: 5 CUPS OF COFFEE ANICETO LY; QUIT IN 1984; Start: 05-01-2022 End: 06-14-2023 Tobacco smoking status [facility] Never smoked tobacco [facility] Start: 05-01-2022 End: 10-18-2023 Tobacco use and exposure Smokeless tobacco non-user [facility] Start: 05-01-2022 End: 11-14-2022 Alcohol intake Ex-drinker (finding) [facility] Start: 1955 Sex Assigned At Not on file [facility] Start: 10-15-2020 End: 06-23-2024 Tobacco smoking status AZIS Ex-smoker (finding) [facility] Start: 1955 Sex Assigned At Male F [facility] End: 05-28-1992 History of tobacco use Current smoker [facility] Work Phone: End: 05-28-1992 History of tobacco use Cigarette Smoker [facility] Work Phone: Start: 03-23-2023 End: 05-15-2024 Alcohol intake Lifetime non-drinker (finding) [facility] Work Phone: Start: 03-23-2023 End: 05-15-2024 Tobacco use panel [facility] Start: 03-13-2023 End: 05-15-2024 Exposure to SARS-CoV-2 (event) Not sure [facility] Start: 03-14-2023 Alcohol Comment caffeine: coff ee 5-6 cups a day [facility] Start: 11-13-2022 Gender identity Identifies as male gender (finding) [facility] Tobacco smoking status Never [facility] [place] Functional Status Date Assessment Result Facility 06-23-2024 Functional Status N/A [facility] 04-28-2024 Functional Status N/A [facility] 04-16-2024 Functional Status N/A [facility] Clinical Notes 05-01-2022 to 06-23-2024 Rene Cortez MD - 05/15/2024 9:10 AM ESTPatient InstructionsRelibertad Busby NP - 05/07/2024 5:15 PM ESTPatient InstructionsSera Flower MD - 03/26/2024 1:00 PM EDTPatient Instructions Note Date & Type Note Facility 06-23-2024 Hospital Discharge instructions Patient Education 06/23/2024 15:40:46 Prostatic Urethral Lift Prostatic Urethral Lift Prostatic urethral lift is a surgical procedure to treat symptoms of prostate gland enlargement that occurs with age (benign prostatic hypertrophy, BPH). The urethra passes between the two lobes of the prostate. The urethra is the part of the body that drains urine from the bladder. As the prostate enlarges, it can push on the urethra and cause problems with urinating. This procedure involves placing an implant that holds the prostate away from the urethra. The procedure is done using a thin device called a cystoscope. The device is inserted through the tip of the penis and moved up the urethra to the prostate. This is less invasive than other procedures that require an incision. You may have this procedure if: You have symptoms of BPH. Your prostate is not severely enlarged. Medicines to treat BPH are not working or not tolerated. You want to avoid possible sexual side effects from medicines or other procedures that are used to treat BPH. Tell a health care provider about: Any allergies you have. All medicines you are taking, including vitamins, herbs, eye drops, creams, and sqmh-nxt-rnousic medicines. Any problems you or family members have had with anesthetic medicines. Any bleeding problems you have. Any surgeries you have had. Any medical conditions you have. What are the risks? Generally, this is a safe procedure. However, problems may occur, including: Bleeding. Infection. Leaking of urine (incontinence). Allergic reactions to medicines. Return of BPH symptoms after 2 years, requiring more treatment. What happens before the procedure? When to stop eating and drinking Follow instructions from your health care provider about what you may eat and drink before your procedure. These may include: 8 hours before your procedure ?Stop eating most foods. Do not eat meat, fried foods, or fatty foods. ?Eat only light foods, such as toast or crackers. ?All liquids are okay except energy drinks and alcohol. 6 hours before your procedure ?Stop eating. ?Drink only clear liquids, such as water, clear fruit juice, black coffee, plain tea, and sports drinks. ?Do not drink energy drinks or alcohol. 2 hours before your procedure ?Stop drinking all liquids. ?You may be allowed to take medicines with small sips of water. If you do not follow your health care provider's instructions, your procedure may be delayed or canceled. Medicines Ask your health care provider about: Changing or stopping your regular medicines. This is especially important if you are taking diabetes medicines or blood thinners. Taking medicines such as aspirin and ibuprofen. These medicines can thin your blood. Do not take these medicines unless your health care provider tells you to take them. Taking oojx-dot-mgfsjpv medicines, vitamins, herbs, and supplements. Surgery safety Ask your health care provider what steps will be taken to help prevent infection. These steps may include: Removing hair at the surgery site. Washing skin with a germ-killing soap. Taking antibiotic medicine. General instructions Do not use any products that contain nicotine or tobacco for at least 4 weeks before the procedure. These products include cigarettes, chewing tobacco, and vaping devices, such as e-cigarettes. If you need help quitting, ask your health care provider. If you will be going home right after the procedure, plan to have a responsible adult: ?Take you home from the hospital or clinic. You will not be allowed to drive. ?Care for you for the time you are told. What happens during the procedure? An IV may be inserted into one of your veins. You will be given one or more of the following: ?A medicine to help you relax (sedative). ?A medicine that is injected into your urethra to numb the area (local anesthetic). ?A medicine to make you fall asleep (general anesthetic). A cystoscope will be inserted into your penis and moved through your urethra to your prostate. A device will be inserted through the cystoscope and used to press the lobes of your prostate away from your urethra. Implants will be inserted through the device to hold the lobes of your prostate in the widened position. The device and cystoscope will be removed. The procedure may vary among health care providers and hospitals. What happens after the procedure? Your blood pressure, heart rate, breathing rate, and blood oxygen level be monitored until you leave the hospital or clinic. If you were given a sedative during the procedure, it can affect you for several hours. Do not drive or operate machinery until your health care provider says that it is safe. Summary Prostatic urethral lift is a surgical procedure to relieve symptoms of prostate gland enlargement that occurs with age (benign prostatic hypertrophy, BPH). The procedure is performed with a thin device called a cystoscope. This device is inserted through the tip of the penis and moved up the urethra to reach the prostate. This is less invasive than other procedures that require an incision. If you will be going home right after the procedure, plan to have a responsible adult take you home from the hospital or clinic. You will not be allowed to drive. This information is not intended to replace advice given to you by your health care provider. Make sure you discuss any questions you have with your health care provider. Document Revised: 12/09/2021 Document Reviewed: 12/09/2021 [employer] Patient Education 2023 [employer]. Follow Up Care 04/28/2024 12:25:17 With:BENNY SHELLEY, John Hauser, URL Address: [address] [place], [place] [id number]- When: Unknown [facility] [place] 06-23-2024 Note Patient Education Urology Prostatic Urethral Lift Prostatic urethral lift is a surgical procedure to treat symptoms of prostate gland enlargement that occurs with age (benign prostatic hypertrophy, BPH). The urethra passes between the two lobes of the prostate. The urethra is the part of the body that drains urine from the bladder. As the prostate enlarges, it can push on the urethra and cause problems with urinating. This procedure involves placing an implant that holds the prostate away from the urethra. The procedure is done using a thin device called a cystoscope. The device is inserted through the tip of the penis and moved up the urethra to the prostate. This is less invasive than other procedures that require an incision. You may have this procedure if: ??? You have symptoms of BPH. ??? Your prostate is not severely enlarged. ??? Medicines to treat BPH are not working or not tolerated. ??? You want to avoid possible sexual side effects from medicines or other procedures that are used to treat BPH. Tell a health care provider about: ??? Any allergies you have. ??? All medicines you are taking, including vitamins, herbs, eye drops, creams, and umpw-oor-wejwdwt medicines. ??? Any problems you or family members have had with anesthetic medicines. ??? Any bleeding problems you have. ??? Any surgeries you have had. ??? Any medical conditions you have. What are the risks? Generally, this is a safe procedure. However, problems may occur, including: ??? Bleeding. ??? Infection. ??? Leaking of urine (incontinence). ??? Allergic reactions to medicines. ??? Return of BPH symptoms after 2 years, requiring more treatment. What happens before the procedure? When to stop eating and drinking Follow instructions from your health care provider about what you may eat and drink before your procedure. These may include: ??? 8 hours before your procedure ? Stop eating most foods. Do not eat meat, fried foods, or fatty foods. ? Eat only light foods, such as toast or crackers. ? All liquids are okay except energy drinks and alcohol. ??? 6 hours before your procedure ? Stop eating. ? Drink only clear liquids, such as water, clear fruit juice, black coffee, plain tea, and sports drinks. ? Do not drink energy drinks or alcohol. ??? 2 hours before your procedure ? Stop drinking all liquids. ? You may be allowed to take medicines with small sips of water. If you do not follow your health care provider's instructions, your procedure may be delayed or canceled. Medicines Ask your health care provider about: ??? Changing or stopping your regular medicines. This is especially important if you are taking diabetes medicines or blood thinners. ??? Taking medicines such as aspirin and ibuprofen. These medicines can thin your blood. Do not take these medicines unless your health care provider tells you to take them. ??? Taking fbyf-tcv-tfkbuvf medicines, vitamins, herbs, and supplements. Surgery safety Ask your health care provider what steps will be taken to help prevent infection. These steps may include: ??? Removing hair at the surgery site. ??? Washing skin with a germ-killing soap. ??? Taking antibiotic medicine. General instructions ??? Do not use any products that contain nicotine or tobacco for at least 4 weeks before the procedure. These products include cigarettes, chewing tobacco, and vaping devices, such as e-cigarettes. If you need help quitting, ask your health care provider. ??? If you will be going home right after the procedure, plan to have a responsible adult: ? Take you home from the hospital or clinic. You will not be allowed to drive. ? Care for you for the time you are told. What happens during the procedure? An IV may be inserted into one of your veins. ??? You will be given one or more of the following: ? A medicine to help you relax (sedative). ? A medicine that is injected into your urethra to numb the area (local anesthetic). ? A medicine to make you fall asleep (general anesthetic). ??? A cystoscope will be inserted into your penis and moved through your urethra to your prostate. ??? A device will be inserted through the cystoscope and used to press the lobes of your prostate away from your urethra. ??? Implants will be inserted through the device to hold the lobes of your prostate in the widened position. ??? The device and cystoscope will be removed. The procedure may vary among health care providers and hospitals. What happens after the procedure? Your blood pressure, heart rate, breathing rate, and blood oxygen level be monitored until you leave the hospital or clinic. ??? If you were given a sedative during the procedure, it can affect you for several hours. Do not drive or operate machinery until your health care provider says that it is safe. Summary ??? Prostatic urethral lift is a surgical procedure to relieve symptoms (more content not included)... [facility] 05-15-2024 History of Present illness Narrative Subjective Demarcus Calderon is a 69 y.o. male Chief Complaint Follow-up HPI Patient is in the office for follow-up for the problems noted below. He also continue to follow with his PCP Dr. Sera Flower. [facility] He comes into the office without any complaints and his weight remains way above target class II obesity. Denies any angina palpitations or dyspnea. Has no side effect of medications. He is currently retired and encouragement provided to have more proactive lifestyle and control his weight. [facility] as [facility] since I switched him to rosuvastatin 40 mg daily. ASSESSMENT AND PLAN: 1. Coronary artery disease, [...] control, no changes are needed 4. Hyperlipidemia, last visit he was switched from atorvastatin to rosuvastatin 40 mg daily. [facility] done recently will be requested if LDL cholesterol is not on target will add ezetimibe 5. Mild ischemic cardiomyopathy, stage C functional class II NYHA last ejection fraction from 2022 45% by echo, currently asymptomatic continue current therapy 6. Class II obesity provided patients with advice on the measures to bring his BMI down with emphasis on low-calorie diet Review of Systems All other systems reviewed and are negative. Vitals: 05/15/24 0853 BP: 124/66 BP Location: Left arm Patient Position: Sitting Pulse: 60 Weight: 108 kg (238 lb 9.6 oz) Height: 1.727 m (5' 8 ) [...] once daily., Disp: , Rfl: carvedilol (Coreg) 6.25 mg tablet, Take 1 tablet (6.25 mg) by mouth 2 times daily (morning and late afternoon)., Disp: 180 tablet, Rfl: 3 cholecalciferol (Vitamin D-3) 50 MCG (2000 UT) [...] , Rfl: omega-3 fatty acids-fish oil (One-Per-Day Mccleary-3) 684-1,200 mg capsule, Take as directed, Disp: , Rfl: omeprazole (PriLOSEC) [address] capsule, Take 1 capsule (20 mg) by mouth once daily., Disp: , Rfl: rosuvastatin (Crestor) 40 mg tablet, Take 1 tablet (40 mg) by mouth once daily., Disp: 90 tablet, Rfl: 3 tamsulosin (Flomax) 0.4 mg 24 hr capsule, Take 2 capsules (0.8 mg) by mouth once daily., Disp: , Rfl: vitamin E 180 mg (400 unit) capsule, Take 1 capsule (400 Units) by mouth once daily., Disp: , Rfl: zinc gluconate 30 mg tablet, Take 1 tablet (30 mg) by mouth once daily., Disp: , Rfl: nitroglycerin (Nitrostat) 0.4 mg SL tablet, Place 1 tablet (0.4 mg) under the tongue every 5 minutes if needed for chest pain. May repeat dose every 5 minutes for up to 3 doses total., Disp: 25 tablet, Rfl: 11 Assessment/Plan 1. Coronary artery disease involving [place] coronary artery of [place] heart without angina pectoris Follow Up In Cardiology Follow Up In Cardiology nitroglycerin (Nitrostat) 0.4 mg SL tablet 2. Essential hypertension 3. Ischemic cardiomyopathy 4. Mixed hyperlipidemia 5. Status post coronary artery stent placement 6. Former smoker 7. BMI 36.0-36.9,adult Scribe Attestation By signing my name below, I, Ana Jimenez LPN , Gregor attest that this documentation has been prepared under the direction and in the presence of Rene Cortez MD. Provider Attestation - Scribe documentation All medical record entries made by the Scribe were at my direction and personally dictated by me. I have reviewed the chart and agree that the record accurately reflects my personal performance of the history, physical exam, discussion and plan. documented in this encounter [facility] Work Phone: 05-15-2024 Instructions Ana Cunningham LPN - 05/15/2024 9:10 AM EST Please bring all medicines, vitamins, and herbal [...] measurement. Current weight: 108 kg (238 lb 9.6 oz) Weight change since last visit (-) denotes wt loss -0.2 lbs Weight loss needed to achieve BMI 25: 74.5 Lbs Weight loss needed to achieve BMI 30: 41.7 Lbs Provided instructions on dietary changes Provided instructions on exercise. Follow up documented in this encounter [facility] Work Phone: 05-07-2024 History of Present illness Narrative Images from the original note were not included. [address] , [address] [facility], [address] P: [phone] F: [phone] HPI Historian of HPI: patient Demarcus Calderon is a 69 y.o. male who presents today to the Urgent Care with the following complaints and denials which have been present for 2 day(s) C/O Denies Symptom Comments [] [x] Runny Nose [] [x] Difficulty Swallowing [] [x] Sore Throat [] [] Cough [x] [] Ear Pain Right,, muffled sounds, fullness [] [x] Fever [] [x] Chills [] [x] Nasal Congestion [] [x] Myalgia [] [x] Sinus Pain [] [x] Sinus Pressure Additional Comments: pt has not taken any OTC medications ROS A complete system ROS was performed and negative aside from the pertinent positives noted in the HPI and PE. IH Testing: Pt was admitted to [facility] for pneumonia in January of 2024. PHYSICAL EXAM Examination General Examination: General Examination: alert, oriented, normal affect, well-appearing, in no acute distress, well developed, well nourished Head: normocephalic, atraumatic Eyes: sclera anicteric Ears: righTM markedly erythematous and bulging Nose: Congested with clear drainage Oral Cavity: mucosa moist Throat: clear Neck/Thyroid: neck supple, full range of motion, no cervical lymphadenopathy Lymph Nodes: no cervical adenopathy Skin: no rashes Heart: no murmurs, regular rate and rhythm, S1, S2 normal Lungs: scattered rhonchi throughout Musculoskeletal: normal Extremities: no edema, no cyanosis Neurologic: nonfocal Psych: alert, oriented, cooperative with exam. TREATMENT PLAN documented in this encounter [facility] 05-07-2024 Instructions Gurjit Busby NP - 05/07/2024 5:15 PM EST Cover for otitis. Finish all doses of antibiotic Push fluids, may continue with OTC Meds for sy mptom relief COPD Is stable, saw pulmonology today documented in this encounter [facility] 04-28-2024 Hospital Discharge instructions Patient Education 04/28/2024 12:02:30 Urinary Incontinence Urinary Incontinence Urinary incontinence refers to a condition in which a person is unable to control where and when to pass urine. A person with this condition will urinate involuntarily. This means that the person urinates when he or she does not mean to. What are the causes? This condition may be caused by: Medicines. Infections. Constipation. Overactive bladder muscles. Weak bladder muscles. Weak pelvic floor muscles. These muscles provide support for the bladder, intestine, and, in women, the uterus. Enlarged prostate in men. The prostate is a gland near the bladder. When it gets too big, it can pinch the urethra. With the urethra blocked, the bladder can weaken and lose the ability to empty properly. Surgery. Emotional factors, such as anxiety, stress, or post-traumatic stress disorder (PTSD). Spinal cord injury, nerve injury, or other neurological conditions. Pelvic organ prolapse. This happens in women when organs move out of place and into the vagina. This movement can prevent the bladder and urethra from working properly. What increases the risk? The following factors may make you more likely to develop this condition: Age. The older you are, the higher the risk. Obesity. Being physically inactive. and childbirth. Menopause. Diseases that affect the nerves or spinal cord. Long-term, or chronic, coughing. This can increase pressure on the bladder and pelvic floor muscles. What are the signs or symptoms? Symptoms may vary depending on the type of urinary incontinence you have. They include: A sudden urge to urinate, and passing urine involuntarily before you can get to a bathroom (urge incontinence). Suddenly passing urine when doing activities that force urine to pass, such as coughing, laughing, exercising, or sneezing (stress incontinence). Needing to urinate often but urinating only a small amount, or constantly dribbling urine (overflow incontinence). Urinating because you cannot get to the bathroom in time due to a physical disability, such as arthritis or injury, or due to a communication or thinking problem, such as Alzheimer's disease (functional incontinence). How is this diagnosed? This condition may be diagnosed based on: Your medical history. A physical exam. Tests, such as: ?Urine tests. ?X-rays of your kidney and bladder. ?Ultrasound. ?CT scan. ?Cystoscopy. In this procedure, a health care provider inserts a tube with a light and camera (cystoscope) through the urethra and into the bladder to check for problems. ?Urodynamic testing. These tests assess how well the bladder, urethra, and sphincter can store and release urine. There are different types of urodynamic tests, and they vary depending on what the test is measuring. To help diagnose your condition, your health care provider may recommend that you keep a log of when you urinate and how much you urinate. How is this treated? Treatment for this condition depends on the type of incontinence that you have and its cause. Treatment may include: Lifestyle changes, such as: ?Quitting smoking. ?Maintaining a healthy weight. ?Staying active. Try to get 150 minutes of moderate-intensity exercise every week. Ask your health care provider which activities are safe for you. ?Eating a healthy diet. ?Avoid high-fat foods, like fried foods. ?Avoid refined carbohydrates like white bread and white rice. ?Limit how much alcohol and caffeine you drink. ?Increase your fiber intake. Healthy sources of fiber include beans, whole grains, and fresh fruits and vegetables. Behavioral changes, such as: ?Pelvic floor muscle exercises. ?Bladder training, such as lengthening the amount of time between bathroom breaks, or using the bathroom at regular intervals. ?Using techniques to suppress bladder urges. This can include distraction techniques or controlled breathing exercises. Medicines, such as: ?Medicines to relax the bladder muscles and prevent bladder spasms. ?Medicines to help slow or prevent the growth of a man's prostate. ?Botox injections. These can help relax the bladder muscles. Treatments, such as: ?Using pulses of electricity to help change bladder reflexes (electrical nerve stimulation). ?For women, using a medical office technologist to prevent urine leaks. This is a small, tampon-like, disposable device that is inserted into the urethra. ?Injecting collagen or carbon beads (bulking agents) into the urinary sphincter. These can help thicken tissue and close the bladder opening. ?Surgery. Follow these instructions at home: Lifestyle Limit alcohol and caffeine. These can fill your bladder quickly and irritate it. Keep yourself clean to help prevent odors and skin damage. Ask your health care provider about special skin creams and cleansers that can protect the skin from urine. Consider wearing pads or adult diapers. Make sure to change them regularly, and always change them right after experiencing incontinence. General instructions Take rdnh-dva-iaryzwf and prescription medicines only as told by your health care provider. Use the bathroom about every 3 4 hours, even if you do not feel the need to urinate. Try to empty your bladder completely every time. After urinating, wait a minute. Then try to urinate again. Make sure you are in a relaxed position while urinating. If your incontinence is caused by nerve problems, keep a log of the medicines you take and the times you go to the bathroom. Keep all follow-up visits. This is important. Where to find more information National [place] [employer] and [employer]est[employer] Kidney Diseases: www.niddk.nih.gov [place]: www.urologyhealth.org Contact a health care provider if: You have pain that gets worse. Your incontinence gets worse. Get help right away if: You have a fever or chills. You are unable to urinate. You have redness in your groin area or down your legs. Summary Urinary incontinence refers to a condition in which a person is unable to control where and when to pass urine. This condition may be caused by medicines, infection, weak bladder muscles, weak pelvic floor muscles, enlargement of the prostate (in men), or surgery. Factors such as older age, obesity, and childbirth, menopause, neurological diseases, and chronic coughing may increase your risk for developing this condition. Types of urinary incontinence include urge incontinence, stress incontinence, overflow incontinence, and functional incontinence. This condition is usually treated first with lifestyle and behavioral changes, such as quitting smoking, eating a healthier diet, and doing regular pelvic floor exercises. Other treatment options include medicines, bulking agents, medical devices, electrical nerve stimulation, or surgery. This information is not intended to replace advice given to you by your health care provider. Make sure you discuss any questions you have with your health care provider. Document Revised: 12/17/2020 Document Reviewed: 12/17/2020 [employer] Patient Education 2023 [employer] 04/28/2024 12:02:20 Acute Urinary Retention, Male Acute Urinary Retention, Male Acute urinary retention is a condition in which a person is unable to pass urine or can only pass a little urine. This condition can happen suddenly and last for a short time. If left untreated, it can become long-term (chronic) and result in kidney damage or other serious complications. What are the causes? This condition may be caused by: Obstruction or narrowing of the tube that drains the bladder (urethra). This may be caused by surgery, problems with nearby organs, or injury to the bladder or urethra. Problems with the nerves in the bladder. Tumors in the area of the pelvis, bladder, or urethra. Certain medicines. Bladder or urinary tract infection. Constipation. What increases the risk? This condition is more likely to develop in older men. As men age, their prostate may become larger and may start to press or squeeze on the bladder or the urethra. Other chronic health conditions can increase the risk of acute urinary retention. These include: Diseases such as multiple sclerosis. Spinal cord injuries. Diabetes. Degenerative cognitive conditions, such as delirium or dementia. Psychological conditions. A man may hold his urine due to trauma or because he does not want to use the bathroom. What are the signs or symptoms? Symptoms of this condition include: Trouble urinating. Pain in the lower abdomen. How is this diagnosed? This condition is diagnosed based on a physical exam and your medical history. You may also have other tests, including: An ultrasound of the bladder or kidneys or both. Blood tests. A urine analysis. Additional tests may be needed, such as a CT scan, MRI, and kidney or bladder function tests. How is this treated? Treatment for this condition may include: Medicines. Placing a thin, sterile tube (catheter) into the bladder to drain urine out of the body. This is called an indwelling urinary catheter. After it is inserted, the catheter is held in place with a small balloon that is filled with sterile water. Urine drains from the catheter into a collection bag outside of the body. Behavioral therapy. Treatment for other conditions. If needed, you may be treated in the hospital for kidney function problems or to manage other complications. Follow these instructions at home: Medicines Take dmza-dfu-hmkxnmd and prescription medicines only as told by your health care provider. Avoid certain medicines, such as decongestants, antihistamines, and some prescription medicines. Do not take any medicine unless your health care provider approves. If you were prescribed an antibiotic medicine, take it as told by your health care provider. Do not stop using the antibiotic even if you start to feel better. General instructions Do not use any products that contain nicotine or tobacco. These products include cigarettes, chewing tobacco, and vaping devices, such as e-cigarettes. If you need help quitting, ask your health care provider. Drink enough fluid to keep your urine pale yellow. If you have an indwelling urinary catheter, follow the instructions from your health care provider. Monitor any changes in your symptoms. Tell your health care provider about any changes. If instructed, monitor your blood pressure at home. Report changes as told by your health care provider. Keep all follow-up visits. This is important. Contact a health care provider if: You have uncomfortable bladder contractions that you cannot control (spasms). You leak urine with the spasms. Get help right away if: You have chills or a fever. You have blood in your urine. You have a catheter and the following happens: ?Your catheter stops draining urine. ?Your catheter falls out. Summary Acute urinary retention is a condition in which a person is unable to pass urine or can only pass a little urine. If left untreated, this condition can result in kidney damage or other serious complications. An enlarged prostate may cause this condition. As men age, their prostate gland may become larger and may press or squeeze on the bladder or the urethra. Treatment for this condition may include medicines and placement of an indwelling urinary catheter. Monitor any changes in your symptoms. Tell your health care provider about any changes. This information is not intended to replace advice given to you by your health care provider. Make sure you discuss any questions you have with your health care provider. Document Revised: 02/02/2021 Document Reviewed: 02/02/2021 [employer] Patient Education 2023 [employer]. 04/28/2024 12:02:13 Prostate Cancer Screening Prostate Cancer Screening Prostate cancer screening is testing that is done to check for the presence of prostate cancer in men. The prostate gland is a walnut-sized gland that is located below the bladder and in front of the rectum in males. The function of the prostate is to add fluid to semen during ejaculation. Prostate cancer is one of the most common types of cancer in men. Who should have prostate cancer screening? Screening recommendations vary based on age and other risk factors, as well as between the professional organizations who make the recommendations. In general, screening is recommended if: You are age 50 to 70 and have an average risk for prostate cancer. You should talk with your health care provider about your need for screening and how often screening should be done. Because most prostate cancers are slow growing and will not cause , screening in this age group is generally reserved for men who have a 10- to 15-year life expectancy. You are younger than age 50, and you have these risk factors: ?Having a father, brother, or uncle who has been diagnosed with prostate cancer. The risk is higher if your family member's cancer occurred at an early age or if you have multiple family members with prostate cancer at an early age. ?Being a male who is Black or is of Cristhian or sub-Saharan descent. In general, screening is not recommended if: You are younger than age 40. You are between the ages of 40 and 49 and you have no risk factors. You are 70 years of age or older. At this age, the risks that screening can cause are greater than the benefits that it may provide. If you are at high risk for prostate cancer, your health care provider may recommend that you have screenings more often or that you start screening at a younger age. How is screening for prostate cancer done? The recommended prostate cancer screening test is a blood test called the prostate-specific antigen (PSA) test. PSA is a protein that is made in the prostate. As you age, your prostate naturally produces more PSA. Abnormally high PSA levels may be caused by: Prostate cancer. An enlarged prostate that is not caused by cancer (benign prostatic hyperplasia, or BPH). This condition is very common in older men. A prostate gland infection (prostatitis) or urinary tract infection. Certain medicines such as male hormones (like testosterone) or other medicines that raise testosterone levels. A rectal exam may be done as part of prostate cancer screening to help provide information about the size of your prostate gland. When a rectal exam is performed, it should be done after the PSA level is drawn to avoid any effect on the results. Depending on the PSA results, you may need more tests, such as: A physical exam to check the size of your prostate gland, if not done as part of screening. Blood and imaging tests. A procedure to remove tissue samples from your prostate gland for testing (biopsy). This is the only way to know for certain if you have prostate cancer. What are the benefits of prostate cancer screening? Screening can help to identify cancer at an early stage, before symptoms start and when the cancer can be treated more easily. There is a small chance that screening may lower your risk of dying from prostate cancer. The chance is small because prostate cancer is a slow-growing cancer, and most men with prostate cancer from a different cause. What are the risks of prostate cancer screening? The main risk of prostate cancer screening is diagnosing and treating prostate cancer that would never have caused any symptoms or problems. This is called overdiagnosisand overtreatment. PSA screening cannot tell you if your PSA is high due to cancer or a different cause. A prostate biopsy is the only procedure to diagnose prostate cancer. Even the results of a biopsy may not tell you if your cancer needs to be treated. Slow-growing prostate cancer may not need any treatment other than monitoring, so diagnosing and treating it may cause unnecessary stress or other side effects. Questions to ask your health care provider When should I start prostate cancer screening? What is my risk for prostate cancer? How often do I need screening? What type of screening tests do I need? How do I get my test results? What do my results mean? Do I need treatment? Where to find more information [employer] [place] [employer]: www.cancer.org [place] [employer]: www.auanet.org Contact a health care provider if: You have difficulty urinating. You have pain when you urinate or ejaculate. You have blood in your urine or semen. You have pain in your back or in the area of your prostate. Summary Prostate cancer is a common type of cancer in men. The prostate gland is located below the bladder and in front of the rectum. This gland adds fluid to semen during ejaculation. Prostate cancer screening may identify cancer at an early stage, when the cancer can be treated more easily and is less likely to have spread to other areas of the body. The prostate-specific antigen (PSA) test is the recommended screening test for prostate cancer, but it has associated risks. Discuss the risks and benefits of prostate cancer screening with your health care provider. If you are age 70 or older, the risks that screening can cause are greater than the benefits that it may provide. This information is not intended to replace advice given to you by your health care provider. Make sure you discuss any questions you have with your health care provider. Document Revised: 11/07/2021 Document Reviewed: 11/07/2021 [employer] Patient Education 2023 [employer]. Follow Up Care 04/16/2024 11:10:33 With:ADRIÁN DELACRUZ, SU Esquivel, URL Address: [address] [place] [address] When: Unknown [facility] 04-28-2024 Note Patient Education Oncology Prostate Cancer Screening Prostate cancer screening is testing that is done to check for the presence of prostate cancer in men. The prostate gland is a walnut-sized gland that is located below the bladder and in front of the rectum in males. The function of the prostate is to add fluid to semen during ejaculation. Prostate cancer is one of the most common types of cancer in men. Who should have prostate cancer screening? Screening recommendations vary based on age and other risk factors, as well as between the professional organizations who make the recommendations. In general, screening is recommended if: ??? You are age 50 to 70 and have an average risk for prostate cancer. You should talk with your health care provider about your need for screening and how often screening should be done. Because most prostate cancers are slow growing and will not cause , screening in this age group is generally reserved for men who have a 10- to 15-year life expectancy. ??? You are younger than age 50, and you have these risk factors: ? Having a father, brother, or uncle who has been diagnosed with prostate cancer. The risk is higher if your family member's cancer occurred at an early age or if you have multiple family members with prostate cancer at an early age. ? Being a male who is Black or is of Cristhian or sub-Saharan descent. In general, screening is not recommended if: ??? You are younger than age 40. ??? You are between the ages of 40 and 49 and you have no risk factors. ??? You are 70 years of age or older. At this age, the risks that screening can cause are greater than the benefits that it may provide. If you are at high risk for prostate cancer, your health care provider may recommend that you have screenings more often or that you start screening at a younger age. How is screening for prostate cancer done? The recommended prostate cancer screening test is a blood test called the prostate-specific antigen (PSA) test. PSA is a protein that is made in the prostate. As you age, your prostate naturally produces more PSA. Abnormally high PSA levels may be caused by: ??? Prostate cancer. ??? An enlarged prostate that is not caused by cancer (benign prostatic hyperplasia, or BPH). This condition is very common in older men. ??? A prostate gland infection (prostatitis) or urinary tract infection. ??? Certain medicines such as male hormones (like testosterone) or other medicines that raise testosterone levels. A rectal exam may be done as part of prostate cancer screening to help provide information about the size of your prostate gland. When a rectal exam is performed, it should be done after the PSA level is drawn to avoid any effect on the results. Depending on the PSA results, you may need more tests, such as: ??? A physical exam to check the size of your prostate gland, if not done as part of screening. ??? Blood and imaging tests. ??? A procedure to remove tissue samples from your prostate gland for testing (biopsy). This is the only way to know for certain if you have prostate cancer. What are the benefits of prostate cancer screening? Screening can help to identify cancer at an early stage, before symptoms start and when the cancer can be treated more easily. ??? There is a small chance that screening may lower your risk of dying from prostate cancer. The chance is small because prostate cancer is a slow-growing cancer, and most men with prostate cancer from a different cause. What are the risks of prostate cancer screening? The main risk of prostate cancer screening is diagnosing and treating prostate cancer that would never have caused any symptoms or problems. This is called overdiagnosisand overtreatment. PSA screening cannot tell you if your PSA is high due to cancer or a different cause. A prostate biopsy is the only procedure to diagnose prostate cancer. Even the results of a biopsy may not tell you if your cancer needs to be treated. Slow-growing prostate cancer may not need any treatment other than monitoring, so diagnosing and treating it may cause unnecessary stress or other side effects. Questions to ask your health care provider ??? When should I start prostate cancer screening? What is my risk for prostate cancer? How often do I need screening? What type of screening tests do I need? How do I get my test results? What do my results mean? Do I need treatment? Where to find more information ??? The [place] [employer]: www.cancer.org ??? [place] [employer]: www.auanet.org Contact a health care provider if: ??? You have difficulty urinating. ??? You have pain when you urinate or ejaculate. ??? You have blood in your urine or semen. ??? You have pain in your back or in the area of your prostate. Summary ??? Prostate cancer is a common type of cancer in men. The prostate gland (more content not included)... [facility] 04-16-2024 Note Urology Office/Clini c Note Chief Complaint new patient referral elevated PSA HPI Staff 69 year old male new patient referred for elevated PSA. PSA: 07/29/21 - 2.33 09/14/23 - 2.87 02/27/24 - 6.0 & 13.7% 02/27/24- BUN: 13, Creatinine: 1.11, eGR: 71 PVR 413Ml patient is taking tamsulsin per pcp Dysuria: denies Incomplete bladder emptying: yes Hematuria: denies Frequency: during nigh time Urgency: denies Nocturia: 4 times Stream: weak start and stop stream sometimes Leaking: denies Post void dripping: denies Wearing pads/ Depends: denies Urge incontinence: denies Stress incontinence: denies Incontinence without Sensory Awareness: denies Abdominal pain: denies Flank pain: denies Sexual complaints: _ History of Present Illness I have reviewed and verified the staff HPI to be accurate for this encounter. Review of Systems PHQ Score Initial Depression Screen Score: 0 SCORE no fever, chills, malaise, myalgia. no suprapubic/abdominal pain, nausea, vomiting. Physical Exam Vitals & Measurements T: 37.0 ???C(Temporal Artery) HR: 65(Peripheral) BP: 126/72 HT: 68 in HT: 172 cm WT: 108.1 kg WT: 238.319 lb BMI: 36.54 General: nontoxic, NAD ROSE: benign. no asymmetry, induration, nodules. no pain/tenderness w/ palpation. Assessment/Plan New patient referred by Dr. Flower for elevated PSA, BPH w/ LUTS and urinary retention. Recent hospitalization: 02/14-02/16/24 - admit overnight to Obs w/ chills & weakness, no fever. Found to have leukocytosis w/ unclear etiology of infection. WBC improved, patient d/c home 02/16-02/20/24 - to ED w/ fever, cough. Admitted for PNA, COPD exacerbation. Tx w/ IV rocephin/azithromycin/steroids. Unable to urinate, PVR 480 mL s/p ozuna insertion 02/16. Ozuna removed prior to d/c. Sent home on PO cefdinir x 5 days. 02/27/24- BUN: 13, Creatinine: 1.11, eGR: 71 1. BPH with obstruction/lower urinary tract symptoms (N40.1: Benign prostatic hyperplasia with lower urinary tract symptoms) Today, patient reports issues w/ weak stream and incomplete bladder emptying. I reviewed the patients voiding symptoms, PSA history. We discussed male urologic anatomy including the prostate and how this is likely contributing to his urinary symptoms. He is currently taking tamsulosin once daily. We discussed current dose and recommended increasing tamsulosin to BID to help his urinary sx. Also recommended cysto to better evaluate prostate anatomy and could consider/discuss surgical intervention. Did not speak about MIPPs today (ran out of time). Risks & benefits for cystoscopy have been discussed. All questions answered, patient wishes to proceed. IPSS 18, QoL 4 PVR 413 mL 2. Chronic prostatitis (N41.1: Chronic prostatitis) UA negative for infection or blood today. Given sudden rise in PSA, there is possible concern for chronic prostatitis even though patient is Asx (no fever, chills, dysuria, perineal pain) and ROSE benign/nontender today. Will trial 2 week course of Cipro & return to office in 2 weeks to have repeat PSA to see if PSA declining (this will be about 2 mos from last draw). Patient agreeable. Did not go into great detail about next steps if PSA remains elevated. 3. Elevated PSA (R97.20: Elevated prostate specific antigen [PSA]) PSA: 07/29/21 - 2.33 09/14/23 - 2.87 02/27/24 - 6.0 & 13.7% We discussed the common causes of elevated serum PSA including manipulation, infection, inflammation, BPH and prostate cancer. Elevated PSA could be multifactorial. See #1, #2. 4. Urinary retention (R33.9: Retention of urine, unspecified) PVR 413 mL. Patient feels he voided completely prior to PVR. Had patient void again at end of visit, repeat PVR 204. We discussed how potential prostate obstruction could contribute to long-term bladder health and compliance and urinary retention. Will increase Flomax to 2 caps daily. Advised to watch for potential dizziness/lightheadedness and dc if becomes a problem. Discussed timed voids & double void maneuvers. Patient to go to ED if at any point he is unable to void. -Increase tamsulosin to BID -Start cipro 500 mg BID x 14 days -Timed voids/double void maneuvers discussed -Repeat PVR & PSA in 2 weeks -f/u 2 weeks to discuss PSA -Schedule cysto Documentation recorded by the scribsierra Dyson PA-C accurately reflects the services(s) I performed and decisions made by me. Authenticated by Su Cook PA-C on 04/16/2024 14:04:40. Tatiana Munoz PA-C, personally scribed for Su Cook PA-C on 04/16/2024 13:21:20. . Follow-up With When Contact Information SU COKO PA-C, URL [address] [facility] [place] [address] Additional Instructions: f/u in 2 weeks w/ PSA and PVR Patient Education Acute Urinary Retention, Male Benign Prostatic Hyperplasia Prostatitis Problem List/Past Medical History Ongoing Chronic systolic congestive heart f (more content not included)... [facility] Comment on above: Result Comment: Elec tronically Signed By: SU COOK PA-C\.br\Date and Time Signed: 04/16/24 14:04 EST\.br\Electronically Co-Signed By: Tatiana Dyson PA-C\.br\Date and Time Co-Signed: 04/16/24 13:22 EST\.br\Electronically Co-Signed By: Tatiana Dyson PA-C\.br\Date and Time Co-Signed: 04/16/24 13:24 EST 04-16-2024 Hospital Discharge instructions Patient Education 04/16/2024 11:46:12 Acute Urinary Retention, Male Acute Urinary Retention, Male Acute urinary retention is a condition in which a person is unable to pass urine or can only pass a little urine. This condition can happen suddenly and last for a short time. If left untreated, it can become long-term (chronic) and result in kidney damage or other serious complications. What are the causes? This condition may be caused by: Obstruction or narrowing of the tube that drains the bladder (urethra). This may be caused by surgery, problems with nearby organs, or injury to the bladder or urethra. Problems with the nerves in the bladder. Tumors in the area of the pelvis, bladder, or urethra. Certain medicines. Bladder or urinary tract infection. Constipation. What increases the risk? This condition is more likely to develop in older men. As men age, their prostate may become larger and may start to press or squeeze on the bladder or the urethra. Other chronic health conditions can increase the risk of acute urinary retention. These include: Diseases such as multiple sclerosis. Spinal cord injuries. Diabetes. Degenerative cognitive conditions, such as delirium or dementia. Psychological conditions. A man may hold his urine due to trauma or because he does not want to use the bathroom. What are the signs or symptoms? Symptoms of this condition include: Trouble urinating. Pain in the lower abdomen. How is this diagnosed? This condition is diagnosed based on a physical exam and your medical history. You may also have other tests, including: An ultrasound of the bladder or kidneys or both. Blood tests. A urine analysis. Additional tests may be needed, such as a CT scan, MRI, and kidney or bladder function tests. How is this treated? Treatment for this condition may include: Medicines. Placing a thin, sterile tube (catheter) into the bladder to drain urine out of the body. This is called an indwelling urinary catheter. After it is inserted, the catheter is held in place with a small balloon that is filled with sterile water. Urine drains from the catheter into a collection bag outside of the body. Behavioral therapy. Treatment for other conditions. If needed, you may be treated in the hospital for kidney function problems or to manage other complications. Follow these instructions at home: Medicines Take ydos-kfg-dpuvbff and prescription medicines only as told by your health care provider. Avoid certain medicines, such as decongestants, antihistamines, and some prescription medicines. Do not take any medicine unless your health care provider approves. If you were prescribed an antibiotic medicine, take it as told by your health care provider. Do not stop using the antibiotic even if you start to feel better. General instructions Do not use any products that contain nicotine or tobacco. These products include cigarettes, chewing tobacco, and vaping devices, such as e-cigarettes. If you need help quitting, ask your health care provider. Drink enough fluid to keep your urine pale yellow. If you have an indwelling urinary catheter, follow the instructions from your health care provider. Monitor any changes in your symptoms. Tell your health care provider about any changes. If instructed, monitor your blood pressure at home. Report changes as told by your health care provider. Keep all follow-up visits. This is important. Contact a health care provider if: You have uncomfortable bladder contractions that you cannot control (spasms). You leak urine with the spasms. Get help right away if: You have chills or a fever. You have blood in your urine. You have a catheter and the following happens: ?Your catheter stops draining urine. ?Your catheter falls out. Summary Acute urinary retention is a condition in which a person is unable to pass urine or can only pass a little urine. If left untreated, this condition can result in kidney damage or other serious complications. An enlarged prostate may cause this condition. As men age, their prostate gland may become larger and may press or squeeze on the bladder or the urethra. Treatment for this condition may include medicines and placement of an indwelling urinary catheter. Monitor any changes in your symptoms. Tell your health care provider about any changes. This information is not intended to replace advice given to you by your health care provider. Make sure you discuss any questions you have with your health care provider. Document Revised: 02/02/2021 Document Reviewed: 02/02/2021 [employer] Patient Education 2023 [employer]. 04/16/2024 11:46:02 Benign Prostatic Hyperplasia Benign Prostatic Hyperplasia Benign prostatic hyperplasia (BPH) is an enlarged prostate gland that is caused by the normal aging process. The prostate may get bigger as a man gets older. The condition is not caused by cancer. The prostate is a walnut-sized gland that is involved in the production of semen. It is located in front of the rectum and below the bladder. The bladder stores urine. The urethra carries stored urine out of the body. An enlarged prostate can press on the urethra. This can make it harder to pass urine. The buildup of urine in the bladder can cause infection. Back pressure and infection may progress to bladder damage and kidney (renal) failure. What are the causes? This condition is part of the normal aging process. However, not all men develop problems from this condition. If the prostate enlarges away from the urethra, urine flow will not be blocked. If it enlarges toward the urethra and compresses it, there will be problems passing urine. What increases the risk? This condition is more likely to develop in men older than 50 years. What are the signs or symptoms? Symptoms of this condition include: Getting up often during the night to urinate. Needing to urinate frequently during the day. Difficulty starting urine flow. Decrease in size and strength of your urine stream. Leaking (dribbling) after urinating. Inability to pass urine. This needs immediate treatment. Inability to completely empty your bladder. Pain when you pass urine. This is more common if there is also an infection. Urinary tract infection (UTI). How is this diagnosed? This condition is diagnosed based on your medical history, a physical exam, and your symptoms. Tests will also be done, such as: A post-void bladder scan. This measures any amount of urine that may remain in your bladder after you finish urinating. A digital rectal exam. In a rectal exam, your health care provider checks your prostate by putting a lubricated, gloved finger into your rectum to feel the back of your prostate gland. This exam detects the size of your gland and any abnormal lumps or growths. An exam of your urine (urinalysis). A prostate specific antigen (PSA) screening. This is a blood test used to screen for prostate cancer. An ultrasound. This test uses sound waves to electronically produce a picture of your prostate gland. Your health care provider may refer you to a specialist in kidney and prostate diseases (urologist). How is this treated? Once symptoms begin, your health care provider will monitor your condition (active surveillance or watchful waiting). Treatment for this condition will depend on the severity of your condition. Treatment may include: Observation and yearly exams. This may be the only treatment needed if your condition and symptoms are mild. Medicines to relieve your symptoms, including: ?Medicines to shrink the prostate. ?Medicines to relax the muscle of the prostate. Surgery in severe cases. Surgery may include: ?Prostatectomy. In this procedure, the prostate tissue is removed completely through an open incision or with a laparoscope or robotics. ?Transurethral resection of the prostate (TURP). In this procedure, a tool is inserted through the opening at the tip of the penis (urethra). It is used to cut away tissue of the inner core of the prostate. The pieces are removed through the same opening of the penis. This removes the blockage. ?Transurethral incision (TUIP). In this procedure, small cuts are made in the prostate. This lessens the prostate's pressure on the urethra. ?Transurethral microwave thermotherapy (TUMT). This procedure uses microwaves to create heat. The heat destroys and removes a small amount of prostate tissue. ?Transurethral needle ablation (TUNA). This procedure uses radio frequencies to destroy and remove a small amount of prostate tissue. ?Interstitial laser coagulation (ILC). This procedure uses a laser to destroy and remove a small amount of prostate tissue. ?Transurethral electrovaporization (TUVP). This procedure uses electrodes to destroy and remove a small amount of prostate tissue. ?Prostatic urethral lift. This procedure inserts an implant to push the lobes of the prostate away from the urethra. Follow these instructions at home: Take vzfy-dse-qzevbtt and prescription medicines only as told by your health care provider. Monitor your symptoms for any changes. Contact your health care provider with any changes. Avoid drinking large amounts of liquid before going to bed or out in public. Avoid or reduce how much caffeine or alcohol you drink. Give yourself time when you urinate. Keep all follow-up visits. This is important. Contact a health care provider if: You have unexplained back pain. Your symptoms do not get better with treatment. You develop side effects from the medicine you are taking. Your urine becomes very dark or has a bad smell. Your lower abdomen becomes distended and you have trouble passing urine. Get help right away if: You have a fever or chills. You suddenly cannot urinate. You feel light-headed or very dizzy, or you faint. There are large amounts of blood or clots in your urine. Your urinary problems become hard to manage. You develop moderate to severe low back or flank pain. The flank is the side of your body between the ribs and the hip. These symptoms may be an emergency. Get help right away. Call 911. Do not wait to see if the symptoms will go away. Do not drive yourself to the hospital. Summary Benign prostatic hyperplasia (BPH) is an enlarged prostate that is caused by the normal aging process. It is not caused by cancer. An enlarged prostate can press on the urethra. This can make it hard to pass urine. This condition is more likely to develop in men older than 50 years. Get help right away if you suddenly cannot urinate. This information is not intended to replace advice given to you by your health care provider. Make sure you discuss any questions you have with your health care provider. Document Revised: 11/30/2021 Document Reviewed: 11/30/2021 [employer] Patient Education 2023 [employer]. 04/16/2024 11:46:00 Prostatitis Prostatitis Prostatitis is swelling or inflammation of the prostate gland, also called the prostate. This gland is about 1.5 inches wide and 1 inch high, and it is involved in making semen. The prostate is located below a man's bladder, in front of the rectum. There are four types of prostatitis: Chronic prostatitis (CP), also called chronic pelvic pain syndrome (CPPS). This is the most common type of prostatitis. It is associated with increased muscle tone in the area between the hip bones (pelvic area), around the prostate. This type is also known as a pelvic floor disorder. Chronic bacterial prostatitis. This type usually results from an acute bacterial infection in the prostate gland that keeps coming back or has not been treated properly. The symptoms are less severe than those caused by acute bacterial prostatitis, which lasts a shorter time. Asymptomatic inflammatory prostatitis. This type does not have symptoms and does not need treatment. This is diagnosed when tests are done for other disorders of the urinary tract or reproductive tract. Acute bacterial prostatitis. This type starts quickly and results from an acute bacterial infection in the prostate gland. It is usually associated with a bladder infection, high fever, and chills. This is the least common type of prostatitis. What are the causes? Bacterial prostatitis is caused by an infection from bacteria. Chronic nonbacterial prostatitis may be caused by: Factors related to the nervous system. This system includes thebrain, spinal cord, and nerves. An autoimmune response. This happens when the body's disease-fighting system attacks healthy tissue in the body by mistake. Psychological factors. These have to do with how the mind works. The causes of the other types of prostatitis are usually not known. What are the signs or symptoms? Symptoms of this condition depend on the type of prostatitis you have. Acute bacterial prostatitis Symptoms may include: Pain or burning during urination. Frequent and sudden urges to urinate. Trouble starting to urinate. Fever. Chills. Pain in your muscles or joints, lower back, or lower abdomen. Other types of prostatitis Symptoms may include: Sudden urges to urinate, or urinating often. Trouble starting to urinate. Weak urine stream. Dribbling after urination. Discharge coming from the penis. Pain in the testicles, the penis, or the tip of the penis. Pain in the area in front of the rectum and below the scrotum (perineum). Pain when ejaculating. How is this diagnosed? This condition may be diagnosed based on: A physical and medical exam. A digital rectal exam. For this, the health care provider may use a finger to feel the prostate. A urine test to check for bacteria. A semen sample or blood tests. Ultrasound. Urodynamic tests to check how your body handles urine. Cystoscopy to look inside your bladder or inside the part of your body that drains urine from the bladder (urethra). How is this treated? Treatment for this condition depends on the type of prostatitis. Treatment may involve: Medicines to relieve pain or inflammation, or to help relax your muscles. Physical therapy. Heat therapy. Biofeedback. These techniques help you control certain body functions. Relaxation exercises. Antibiotic medicine, if your condition is caused by bacteria. Sitz baths. These warm water baths help to relax your pelvic floor muscles, which helps to relieve pressure on the prostate. Follow these instructions at home: Medicines Take vceq-utb-vhzyffj and prescription medicines only as told by your health care provider. If you were prescribed an antibiotic medicine, take it as told by your health care provider. Do not stop using the antibiotic even if you start to feel better. Managing pain and swelling Take sitz baths as directed by your health care provider. For a sitz bath, sit in warm water that is deep enough to cover your hips and buttocks. If directed, apply heat to the affected area as often as told by your health care provider. Use the heat source that your health care provider recommends, such as a moist heat pack or a heating pad. ?Place a towel between your skin and the heat source. ?Leave the heat on for 20 30 minutes. ?Remove the heat if your skin turns bright red. This is especially important if you are unable to feel pain, heat, or cold. You may have a greater risk of getting burned. General instructions Do exercises as told by your health care provider, if you were prescribed physical therapy, biofeedback, or relaxation exercises. Keep all follow-up visits as told by your health care provider. This is important. Where to find more information National [place] [employer] and [employer]estive and Kidney Diseases: https://www.niddk.nih.gov Contact a health care provider if: Your symptoms get worse. You have a fever. Get help right away if: You have chills. You feel light-headed or feel like you may faint. You cannot urinate. You have blood or blood clots in your urine. Summary Prostatitis is swelling or inflammation of the prostate gland. Treatment for this condition depends on the type of prostatitis. Take fdad-oku-bjxjrif and prescription medicines only as told by your health care provider. Get help right away of you have chills, feel light-headed, feel like you may faint, cannot urinate, or have blood or blood clots in your urine. This information is not intended to replace advice given to you by your health care provider. Make sure you discuss any questions you have with your health care provider. Document Revised: 03/29/2023 Document Reviewed: 03/29/2023 [employer] Patient Education 2023 [employer]. Follow Up Care 03/06/2024 09:43:54 With:SU COOK PA-C, URL Address: [address] [address] When: Unknown Comments:f/u in 2 weeks w/ PSA and PVR [facility] 04-16-2024 Note Patient Education Infectious Disease Prostatitis Prostatitis is swelling or inflammation of the prostate gland, also called the prostate. This gland is about 1.5 inches wide and 1 inch high, and it is involved in making semen. The prostate is located below a man's bladder, in front of the rectum. There are four types of prostatitis: ??? Chronic prostatitis (CP), also called chronic pelvic pain syndrome (CPPS). This is the most common type of prostatitis. It is associated with increased muscle tone in the area between the hip bones (pelvic area), around the prostate. This type is also known as a pelvic floor disorder. ??? Chronic bacterial prostatitis. This type usually results from an acute bacterial infection in the prostate gland that keeps coming back or has not been treated properly. The symptoms are less severe than those caused by acute bacterial prostatitis, which lasts a shorter time. ??? Asymptomatic inflammatory prostatitis. This type does not have symptoms and does not need treatment. This is diagnosed when tests are done for other disorders of the urinary tract or reproductive tract. ??? Acute bacterial prostatitis. This type starts quickly and results from an acute bacterial infection in the prostate gland. It is usually associated with a bladder infection, high fever, and chills. This is the least common type of prostatitis. What are the causes? Bacterial prostatitis is caused by an infection from bacteria. Chronic nonbacterial prostatitis may be caused by: ??? Factors related to the nervous system. This system includes thebrain, spinal cord, and nerves. ??? An autoimmune response. This happens when the body's disease-fighting system attacks healthy tissue in the body by mistake. ??? Psychological factors. These have to do with how the mind works. The causes of the other types of prostatitis are usually not known. What are the signs or symptoms? Symptoms of this condition depend on the type of prostatitis you have. Acute bacterial prostatitis Symptoms may include: ??? Pain or burning during urination. ??? Frequent and sudden urges to urinate. ??? Trouble starting to urinate. ??? Fever. ??? Chills. ??? Pain in your muscles or joints, lower back, or lower abdomen. Other types of prostatitis Symptoms may include: ??? Sudden urges to urinate, or urinating often. ??? Trouble starting to urinate. ??? Weak urine stream. ??? Dribbling after urination. ??? Discharge coming from the penis. ??? Pain in the testicles, the penis, or the tip of the penis. ??? Pain in the area in front of the rectum and below the scrotum (perineum). ??? Pain when ejaculating. How is this diagnosed? This condition may be diagnosed based on: ??? A physical and medical exam. ??? A digital rectal exam. For this, the health care provider may use a finger to feel the prostate. ??? A urine test to check for bacteria. ??? A semen sample or blood tests. ??? Ultrasound. ??? Urodynamic tests to check how your body handles urine. ??? Cystoscopy to look inside your bladder or inside the part of your body that drains urine from the bladder (urethra). How is this treated? Treatment for this condition depends on the type of prostatitis. Treatment may involve: ??? Medicines to relieve pain or inflammation, or to help relax your muscles. ??? Physical therapy. ??? Heat therapy. ??? Biofeedback. These techniques help you control certain body functions. ??? Relaxation exercises. ??? Antibiotic medicine, if your condition is caused by bacteria. ??? Sitz baths. These warm water baths help to relax your pelvic floor muscles, which helps to relieve pressure on the prostate. Follow these instructions at home: Medicines ??? Take ijon-jsu-aeuynta and prescription medicines only as told by your health care provider. ??? If you were prescribed an antibiotic medicine, take it as told by your health care provider. Do not stop using the antibiotic even if you start to feel better. Managing pain and swelling ??? Take sitz baths as directed by your health care provider. For a sitz bath, sit in warm water that is deep enough to cover your hips and buttocks. ??? If directed, apply heat to the affected area as often as told by your health care provider. Use the heat source that your health care provider recommends, such as a moist heat pack or a heating pad. ? Place a towel between your skin and the heat source. ? Leave the heat on for 20?30 minutes. ? Remove the heat if your skin turns bright red. This is especially important if you are unable to feel pain, heat, or cold. You may have a greater risk of getting burned. General instructions ??? Do exercises as told by your health care provider, if you were prescribed physical therapy, biofeedback, or relaxation exercises. ??? Keep all follow-up visits as told by your health care provider. This is important. (more content not included)... [facility] 03-26-2024 History of Present illness Narrative Images from the original note were not included. Demarcus Calderon is a 69 y.o. male presents with chief complaint of 6 Month Follow-up (Lab drawn 02/27/2024. ) and Cough (Productive cough continues with yellow sputum. Occasional shortness of breath. CXR ordered on 02/26 to repeat in 8 weeks) HPI: History of Present Illness Patient presents today for follow up of chronic medical problems. He reports no current issues with his breathing, which has returned to normal following a recent hospitalization for pneumonia. He does not experience any fevers or chills. His treatment regimen includes the use of a nebulizer twice daily. He recalls one instance of shortness of breath accompanied by coughing, which was resolved with the use of an inhaler. He is currently using Advair, which he reports is effective. He has discontinued the use of his Trelegy inhaler, as he found it only provided relief for about an hour. He has an upcoming appointment with Dr. Morris on 05/07/2024. He is not experiencing any chest pain or heartburn. He occasionally experiences constipation and mild diarrhea but does not find these symptoms concerning. He uses Sennakot tea and Metamucil to manage his constipation. He reports no significant swelling. He takes a diuretic when he begins to feel swollen, which he notes is not a frequent occurrence. He has a history of sinus issues, which have been relatively stable recently. However, he believes he may be developing another infection, as he has noticed redness in his face, a symptom he associates with previous infections. He underwent surgery for polyps in the past, which he believes has led to ongoing sinus problems. He experiences frequent sneezing and drainage. He uses Flonase, but not on a regular basis. He has an appointment with urology for his prostate. I have reviewed and reconciled the history and medication list with the patient today. HISTORIES: PAST MEDICAL HISTORY: Past Medical History: Diagnosis Date Asthma ([facility]) BPH (benign prostatic hyperplasia) CAD (coronary artery disease) ([facility]) COPD (chronic obstructive pulmonary disease) ([facility]) Emphysema, unspecified ([facility]) Hypercholesterolemia ([facility]) Hypertensive heart disease ([facility]) SURGICAL HISTORY: Past Surgical History: Procedure Laterality Date COLONOSCOPY 2019 normal CORONARY ANGIOPLASTY WITH STENT PLACEMENT 2009 SHOULDER SURGERY Right nerve in right shoulder SOCIAL HISTORY: Social History Tobacco Use Smoking status: Former Current packs/day: 0.00 Types: Cigarettes Quit date: 05/28/1992 Years since quittin.8 Vaping Use Vaping status: Never Used Substance Use Topics Alcohol use: Never Comment: caffeine: coffee 5-6 cups a day Drug use: Never Depression: Not at risk (03/26/2024) PHQ-2 PHQ-2 Score: 0 FAMILY HISTORY: Family History Problem Relation Name Age of Onset Dementia Mother Diabetes Mother Aneurysm Father Kidney failure Sibling Heart disease Sibling No Known Problems Son MEDICATIONS: Current Outpatient Medications Medication Instructions albuterol HFA 90 mcg/act inhaler 2 puffs, Inhalation, Every 6 hours PRN albuterol 2.5 mg, Nebulization, Every 8 hours alpha tocopherol (VITAMIN E) 400 Units, Daily benzonatate (TESSALON) 100 mg, Oral, 3 times daily PRN, Do not crush or chew. carvedilol (COREG) 6.25 mg, Oral, 2 times daily with meals cholecalciferol (VITAMIN D-3) 50 mcg, Daily ezetimibe (ZETIA) 10 mg, Nightly fluticasone (Flonase) 50 MCG/ACT nasal spray 2 sprays, Daily Jhmaenfusbk-Hgvkjhqhk-Ncgqlq (Trelegy Ellipta) 100-62.5-25 MCG/ACT aerosol powder 1 puff, Daily furosemide (LASIX) 40 mg, Oral, Daily losartan (COZAAR) 50 mg, Daily magnesium oxide (MAG-OX) 250 mg, Daily Multiple Vitamin (Multivitamin Adult) tablet 1 tablet, Daily nitroglycerin (NITROSTAT) 0.4 mg, Every 5 min PRN omega-3 (fish oil) 1200 MG capsule 1 capsule, Daily omeprazole (PRILOSEC) 20 mg, Oral, Daily rosuvastatin (CRESTOR) 40 mg, Daily RT sildenafil (VIAGRA) 100 mg, Oral, As needed tamsulosin (FLOMAX) 0.4 mg, Oral, Daily triamcinolone (Nasacort Allergy 24HR) 55 MCG/ACT nasal inhaler 1 spray, Daily zinc 30 mg, Daily ALLERGIES: Allergies Allergen Reactions Codeine Nausea And Vomiting and Other Other Reaction(s): Vomiting Guaifenesin Other Other Reaction(s): Airway constriction PHYSICAL EXAM: Visit Vitals BP 122/80 Pulse 77 Ht 5' 8 Wt 236 lb SpO2 96% BMI 35.88 kg/m Smoking Status Former BSA 2.27 m BP Readings from Last 3 Encounters: 03/26/24 122/80 02/27/24 132/84 01/01/24 120/70 Wt Readings from Last 3 Encounters: 03/26/24 236 lb 02/27/24 233 lb 01/01/24 234 lb Physical Exam Vitals reviewed. Constitutional: General: He is not in acute distress. Appearance: Normal appearance. Neck: Vascular: No carotid bruit. Cardiovascular: Rate and Rhythm: Normal rate and regular rhythm. Heart sounds: No murmur heard. No friction rub. Pulmonary: Breath sounds: Normal breath sounds. No wheezing or rhonchi. Musculoskeletal: Cervical back: Neck supple. Right lower leg: No edema. Left lower leg: No edema. Lymphadenopathy: Cervical: No cervical adenopathy. Skin: General: Skin is warm and dry. Neurological: Mental Status: He is alert. Results ASSESSMENT AND PLAN: Assessment & Plan 1. Essential hypertension (CMS/HCC) (Primary) Blood pressure doing well. Continue lifestyle modifications to include minimizing salt and alcohol, exercising regularly, and keeping weight down. Continue current medications. 2. Chronic systolic congestive heart failure (CMS/HCC) Currently compensated. No problems with SOB, COYNE, or increased edema with weight gain. Continue current medication regimen. Eat a heart healthy diet low in sodium. Monitor weights regularly and call if increased more than 5 pounds. Call immediately if any problems or concerns. 3. Coronary artery disease involving [place] coronary artery of [place] heart without angina pectoris (CMS/HCC) Doing well. Denies any anginal symptoms. Continue aggressive risk factor modification. Continue current medications. Call if any problems. 4. Chronic obstructive pulmonary disease, unspecified COPD type (CMS/HCC) Doing well. Continue current regimen. 5. Pure hypercholesterolemia (CMS/HCC) Labs were reviewed and discussed today. The numbers look good. Continue current regimen. 6. Prediabetes Exercise regularly to help increase sensitivity to insulin and help with weight loss. Eat a healthy diet such as a Mediterranean diet and try to control calories to lose weight and maintain that loss to prevent progression to diabetes. 7. Elevated PSA He has been referred to Dr. Peres in urology for evaluation of his elevated PSA and has an upcoming appointment. 8. Benign prostatic hyperplasia without urinary obstruction As above. 9. Bacterial pneumonia He was recently hospitalized for pneumonia and reports that his breathing has returned to normal. He uses his nebulizer twice a day and has not experienced any fevers or chills. He was advised to continue using the Advair inhaler as it has been effective for him. He was also informed that Trelegy inhaler should not be used concurrently with Advair. If symptoms worsen, he may consider trying Breztri inhaler. 10. Sinus drainage He reports redness on his face and sneezing, which he associates with a sinus infection. He has a history of sinus issues following surgery for polyps. He was advised to continue using Flonase as needed. If symptoms persist, further evaluation may be necessary. documented in this encounter [facility] 02-27-2024 History of Present illness Narrative Images from the original note were not included. Demarcus Calderon is a 69 y.o. male presents with chief complaint of Hospital Follow-up ([facility] dx: sepsis, COPD, pneumonia) HPI: Patient presented to [facility] ER with complaints of shortness of breath, productive cough and wheezing. CXR showed right lower lobe and middle lobe pneumonia. He was prescribed Prednisone and Cefdinir. He reports to be feeling much better. He does have follow-up scheduled with Dr. Morgan, sheet metal engineer, in April. History of Present Illness The patient presents for evaluation of pneumonia. He was diagnosed with pneumonia in the right middle lobe and lower lobe of his lung. He continues to cough up mucus, but overall, he feels significantly better. He reports no fevers, shortness of breath, or chest pain. During his hospital stay, he received a substantial amount of fluids, which led to fluid overload. His treatment included antibiotics and steroids, which he has since completed. He is currently on a diuretic medication. He typically does not take the diuretic daily, but uses it when he experiences swelling. He was informed of a low potassium level and is curious about any other deficiencies. I have reviewed and reconciled the history and medication list with the patient today. Flowsheet Row Patient Outreach from 02/21/2024 in [facility] with Tootie Jacobson RN Hospital Information Diagnosis Pneumonia, HTN, CHF, Benign prostate hyperplasia without urinary symptoms. Discharged To: Home Setting Discharge Hospital [facility] Engagement Admission Date 02/17/24 Medications Discharge medications reviewed and reconciled from hospital? Yes Is the patient having any side effects they believe may be caused by any medication additions or changes? No Does the patient have all medications ordered at discharge? Yes Nursing Interventions Nurse provided patient education Prescription Comments Prednisone 40mg daily x 10 days, Cedinir 300mg BID x 5 days Is the patient taking all medications as directed (includes completed medication regime)? Yes Nursing Interventions Nurse provided patient education Appointments Does the patient have a primary care provider? Yes Nursing Interventions Verified appointment date/time/provider Self Management Has home health visited the patient within 72 hours of discharge? Not applicable Patient Teaching Does the patient have access to their discharge instructions? Yes Wrap Up Wrap Up Additional Comments Pt admitted with worsening cough, SOB, wheezing, fever, chills. Dx with pneumonia. Spoke to . She reports pt is currently resting but feeling better. aware of follow up appts. states pts prostate was enlarged in the hospital that he was not able to urinate. Was told to mention this at follow up visit. reports pt is voiding normally at home. HISTORIES: PAST MEDICAL HISTORY: Past Medical History: Diagnosis Date Asthma ([facility]) BPH (benign prostatic hyperplasia) CAD (coronary artery disease) ([facility]) COPD (chronic obstructive pulmonary disease) ([facility]) Emphysema, unspecified ([facility] Hypercholesterolemia ([facility]) Hypertensive heart disease ([facility]) SURGICAL HISTORY: Past Surgical History: Procedure Laterality Date COLONOSCOPY 2019 normal CORONARY ANGIOPLASTY WITH STENT PLACEMENT 2010 SHOULDER SURGERY Right nerve in right shoulder SOCIAL HISTORY: Social History Tobacco Use Smoking status: Former Current packs/day: 0.00 Types: Cigarettes Quit date: 05/28/1992 Years since quittin.7 Vaping Use Vaping status: Never Used Substance Use Topics Alcohol use: Never Comment: caffeine: coffee 5-6 cups a day Drug use: Never Depression: Not at risk (09/20/2023) PHQ-2 PHQ-2 Score: 0 FAMILY HISTORY: Family History Problem Relation Name Age of Onset Dementia Mother Diabetes Mother Aneurysm Father Kidney failure Sibling Heart disease Sibling No Known Problems Son MEDICATIONS: Current Outpatient Medications Medication Instructions albuterol HFA 90 mcg/act inhaler 2 puffs, Inhalation, Every 6 hours PRN albuterol 2.5 mg, Nebulization, Every 8 hours alpha tocopherol (VITAMIN E) 400 Units, Oral, Daily benzonatate (TESSALON) 100 mg, Oral, 3 times daily PRN, Do not crush or chew. carvedilol (COREG) 6.25 mg, Oral, 2 times daily with meals cholecalciferol (VITAMIN D-3) 50 mcg, Oral, Daily ezetimibe (ZETIA) 10 mg, Oral, Nightly fluticasone (Flonase) 50 MCG/ACT nasal spray 2 sprays, Each Nostril, Daily Kminykhmsav-Tujsgfucc-Rcnfpq (Trelegy Ellipta) 100-62.5-25 MCG/ACT aerosol powder 1 puff, Inhalation, Daily furosemide (LASIX) 40 mg, Oral, Daily losartan (COZAAR) 50 mg, Oral, Daily magnesium oxide (MAG-OX) 250 mg, Oral, Daily Multiple Vitamin (Multivitamin Adult) tablet 1 tablet, Oral, Daily nitroglycerin (NITROSTAT) 0.4 mg, Sublingual, Every 5 min PRN omega-3 (fish oil) 1200 MG capsule 1 capsule, Oral, Daily omeprazole (PRILOSEC) 20 mg, Oral, Daily rosuvastatin (CRESTOR) 40 mg, Oral, Daily RT sildenafil (VIAGRA) 100 mg, Oral, As needed tamsulosin (FLOMAX) 0.4 mg, Oral, Daily triamcinolone (Nasacort Allergy 24HR) 55 MCG/ACT nasal inhaler 1 spray, Each Nostril, Daily zinc 30 mg, Oral, Daily ALLERGIES: Allergies Allergen Reactions Codeine Nausea And Vomiting and Other Other Reaction(s): Vomiting Guaifenesin Other Other Reaction(s): Airway constriction PHYSICAL EXAM: Visit Vitals BP 132/84 (BP Location: Left arm, Patient Position: Sitting) Pulse 67 Ht 5' 8 Wt 233 lb SpO2 97% BMI 35.43 kg/m Smoking Status Former BSA 2.26 m BP Readings from Last 3 Encounters: 02/27/24 132/84 01/01/24 120/70 09/20/23 110/70 Wt Readings from Last 3 Encounters: 02/27/24 233 lb 01/01/24 234 lb 09/20/23 238 lb Physical Exam HENT: Mouth/Throat: Mouth: Mucous membranes are moist. Cardiovascular: Rate and Rhythm: Normal rate and regular rhythm. Heart sounds: No murmur heard. No friction rub. No gallop. Pulmonary: Effort: Pulmonary effort is normal. Breath sounds: Normal breath sounds. Abdominal: General: Bowel sounds are normal. Palpations: Abdomen is soft. Skin: General: Skin is warm and dry. Neurological: Mental Status: He is alert and oriented to person, place, and time. Psychiatric: Mood and Affect: Mood normal. Thought Content: Thought content normal. Results ASSESSMENT AND PLAN: Assessment & Plan 1. Sepsis, due to unspecified organism, unspecified whether acute organ dysfunction present (CMS/HCC) He was treated with ATB and steroids and feels much better. 2. Pneumonia of right middle lobe due to infectious organism The patient was diagnosed with pneumonia in the right middle lobe and lower lobe. He reports improvement in symptoms, although he still has a cough and mucus production. There are no fevers, shortness of breath, or chest pains. A chest x-ray will be ordered to recheck the lungs 8 weeks after the pneumonia diagnosis. Blood work will be conducted today to recheck sodium and potassium levels. Will recheck CXR in 8 weeks. - XR chest 2 views; Future 3. Hyponatremia Blood work will be conducted today to recheck sodium and potassium levels. The diuretic medication will be discontinued if blood work is normal. Sodium was 132 at hospital. - Basic metabolic panel 4. Essential hypertension (CMS/HCC) Doing well. Blood pressures have been good. Continue lifestyle modifications. Continue current medication. Call if any problems or if home blood pressures rising. - Basic metabolic panel 5. Chronic systolic congestive heart failure (CMS/HCC) It was felt pt had volume overload due to IVF. He is using Lasix intermittently. Denies problems with SOB, COYNE, or increased edema with weight gain. Continue current medication regimen. Eat a heart healthy diet low in sodium. Monitor weights regularly and call if increased more than 5 pounds. Call immediately if any problems or concerns. 6. Coronary artery disease involving [place] coronary artery of [place] heart without angina pectoris (CMS/HCC) Doing well. Denies any anginal symptoms. Continue aggressive risk factor modification. Continue current medications. Call if any problems. 7. Gastroesophageal reflux disease without esophagitis Stable. Continue current regimen. 8. Benign prostatic hyperplasia without urinary obstruction Stable. Continue current regimen. - PSA, total and free documented in this encounter [facility] 02-19-2024 Note Gram Stain Evaluation This specimen is of good quality and is acceptable for routine [facility] 02-19-2024 Note [facility] GRAM STAIN EVALUATION bacterial culture. [facility] 10-18-2023 History of Present illness Narrative Subjective Demarcus Calderon is a 68 y.o. male Chief Complaint Follow-up HPI Patient is in the office for follow-up for the problems noted below. He has had no cardiac events since he was last seen. Denies any angina or dyspnea. He retired few weeks ago and he continues to follow with the [facility]. Recent lab data from the [facility] were provided and reviewed with him. LDL [...] down with emphasis on low-calorie diet Rene Cortez MD, [facility] Review of Systems All other systems reviewed [...] , Rfl: omega-3 fatty acids-fish oil (One-Per-Day Mccleary-3) 684-1,200 mg capsule, Take as directed, Disp: [...] 3 Assessment/Plan 1. Coronary artery disease involving [place] coronary artery of [place] heart without angina pectoris Follow Up In [...] Scribe Attestation By signing my name below, IAna LPN, Scribe attest that this documentation has been prepared under the direction and in the presence of Rene Cortez MD. Provider Attestation - Scribe documentation All medical record entries made by the Scribe were at my direction and personally dictated by me. I have reviewed the chart and agree that the record accurately reflects my personal performance of the history, physical exam, discussion and plan. documented in this encounter [facility] Work Phone: 10-18-2023 Instructions Ana [...] up 6 months documented in this encounter [facility] Work Phone: 06-30-2023 History of Present illness Narrative HPI: Historian of HPI: patient Demarcus Calderon is a 68 y.o. male who presents [...] [facility] History of Present illness Narrative Subjective Demarcus Calderon is a 68 y.o. male Chief Complaint [...] down with emphasis on low-calorie diet Rene Cortez MD, [facility] Review of Systems All other systems reviewed [...] , Rfl: omega-3 fatty acids-fish oil (One-Per-Day Mccleary-3) 684-1,200 mg capsule, Take as directed, Disp: [...] Rfl: Assessment/Plan 1. Coronary artery disease involving [place] coronary artery of [place] heart without angina pectoris Follow Up In [...] Aminotransferase Alanine Aminotransferase documented in this encounter [facility] Work Phone: 03-23-2023 Instructions Millie [...] of your visit. documented in this encounter [facility] Work Phone: 11-14-2022 Note HNO ID: [id number] Author: Deandra Bender MD Service: ? Author [...] or facial palsy H/o Botox injections in [place]-->didn't help No h/o trauma H/o sinus surgery [...] can I get the FL-41 filter? Any [facility] location, (with an optical shop), throughout [place], Email: [email or web address] [employer] [facility] in [place], [place], [facility] in [place], [place], [facility] in [place], [place], [facility] in [place], [place], [email or web address] Botulinum toxin 3 months, Botulinum toxin [...] others. I have seen and examined Demarcus Calderon. I have discussed the case and the [...] Bender MD, November 14, 2022 10:00 AM. [facility] 11-14-2022 History of Present illness Narrative Here for botox Right eye just started twitching Tears as needed. -rofPatient still having twitching right eye and occasionally the left. Refresh tears four times a day. -rof A/P: Right hemifacial spasm x 2 years Patient doesn't remember h/o bells or facial palsy H/o Botox injections in [place]-->didn't help No h/o trauma H/o sinus surgery [...] can I get the FL-41 filter? Any [facility] [place] location, (with an optical shop), throughout [place], Email: [email or web address] [employer] [facility] in [place], [place], [facility] in [place], [place], [facility] in [place], [place], [employer] in [place], [place], [email or web address] Botulinum toxin 3 months, Botulinum toxin [...] others. I have seen and examined Demarcus Calderon. I have discussed the case and the [...] 2022 10:00 AM. documented in this encounter [facility] 08-08-2022 Note HNO ID: [id number] Author: Deandra Bender MD Service: ? Author Type: Physician Type: Progress Notes Filed: 08/08/2022 3:09 PM Note Text: Patient still having twitching right eye and occasionally the left. Refresh tears four times a day. -rof A/P: Right hemifacial spasm x 2 years Patient doesn't remember h/o bells or facial palsy H/o Botox injections in [place]-->didn't help No h/o trauma H/o sinus surgery [...] others. I have seen and examined Demarcus Calderon. I have discussed the case and the [...] Bender MD, August 08, 2022 3:05 PM. [facility] 08-08-2022 History of Present illness Narrative Patient still having twitching right eye and occasionally the left. Refresh tears four times a day. -rof A/P: Right hemifacial spasm x 2 years Patient doesn't remember h/o bells or facial palsy H/o Botox injections in [place]-->didn't help No h/o trauma H/o sinus surgery [...] others. I have seen and examined Demarcus Calderon. I have discussed the case and the [...] 2022 3:05 PM. documented in this encounter [facility] 08-08-2022 Instructions Deandra Bender MD - 08/08/2022 [...] Recheck next visit documented in this encounter [facility] 06-21-2022 Miscellaneous Notes Notes and MRI orders faxed to [facility]. [facility] called today. : 1955 Allergies: Codeine, Codeine-Guaifenesin, and Guaifenesin (home) [phone] (cell) Reason for call: Sasha F:[phone] Asking for the MRI orders and office notes to be faxed over to [facility]. Patient will be having them done there. Patient last appointment: Visit date not found The patients preferred pharmacy has been captured for this encounter? not asked Delores Mccollum documented in this encounter [facility] 06-21-2022 Note HNO ID: [id number] Author: Deandra Bender MD Service: ? Author Type: Physician Type: Progress Notes Filed: 06/21/2022 9:08 AM Note Text: Twitching right eye x two years. Both upper and lower lid. Trouble reading because of it. +tearing and burning. Refresh four times a day. -rof A/P: Right hemifacial spasm x 2 years Patient doesn't remember h/o bells or facial palsy H/o Botox injections in [place]-->didn't help No h/o trauma H/o sinus surgery [...] note was completed by Evelia Huffman APRN, KALEN acting as a scribe for Deandra Bender MD. 06/21/2022 9:05 AM. I have confirmed and edited as necessary the relevant ophthalmic history, ROS, and the neuro exam findings as obtained by others. I have seen and examined Demarcus Calderon. I have discussed the case and the [...] Bender MD, June 21, 2022 9:05 AM. [facility] 06-21-2022 Instructions Deandra Bender MD - [...] and get MRI documented in this encounter [facility] 06-21-2022 History of Present illness Narrative Twitching right eye x two years. Both upper and lower lid. Trouble reading because of it. +tearing and burning. Refresh four times a day. -rof A/P: Right hemifacial spasm x 2 years Patient doesn't remember h/o bells or facial palsy H/o Botox injections in [place]-->didn't help No h/o trauma H/o sinus surgery [...] others. I have seen and examined Demarcus Calderon. I have discussed the case and the [...] 2022 9:05 AM. documented in this encounter [facility] 05-01-2022 Note HNO ID: [id number] Author: Mau Randle OD Service: ? Author Type: PSYCHOLOGICAL STRESS EVALUATOR Type: Progress Notes Filed: 05/01/2022 9:22 AM [...] others. I have seen and examined Demarcus Calderon. I have discussed the case and the management of this patient's care with the Resident/Fellow, if applicable. I also have reviewed and agree with the assessment and plan as stated above and agree with all of its relevant components. Mau Randle, LATASHA [facility] 05-01-2022 History of Present illness Narrative A 67 year old White [...] others. I have seen and examined Demarcus Calderon. I have discussed the case and the management of this patient's care with the Resident/Fellow, if applicable. I also have reviewed and agree with the assessment and plan as stated above and agree with all of its relevant components. Mau Randle OD documented in this encounter [facility] Evaluation + Plan note Future Appointments Appointment Date:04/25/2024 08:30:00 AM Scheduled Provider: Location:[facility] Appointment Type:URO Nurse Visit Appointment Date:04/28/2024 11:20:00 AM Scheduled Provider:SU COOK PA-C Location:[facility] Appointment Type:URO Office Visit Executive Urology [facility] Evaluation + Plan note Future Appointments Appointment Date:04/28/2024 11:20:00 AM Scheduled Provider:SU COOK PA-C Location:[facility] Appointment Type:URO Office Visit [facility] Evaluation + Plan note Future Appointments Appointment Date:06/23/2024 03:00:00 PM Scheduled Provider:John BAPTISTE MD Location:[facility] Appointment Type:URO Procedure 15 min [facility] Evaluation + Plan note Future Appointments Appointment Date:08/13/2024 12:00:00 PM Scheduled Provider: Location:[facility] Appointment Type:Urology CALL PAT FT Appointment Date:08/14/2024 01:30:00 PM Scheduled Provider: Location:[facility] Appointment Type:Urology FT 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 [facility] Diagnosis Clonic hemifacial spasm, right- Primary [facility] Diagnosis Clonic hemifacial spasm, right- Primary [facility] noteNo assessment information available[facility] Work Phone: Evaluation note* Diagnosis Coronary artery disease involving [place] coronary artery of [place] heart without angina pectoris Essential hypertension Unspecified essential hypertension Mixed hyperlipidemia Ischemic cardiomyopathy Other specified forms of chronic ischemic heart disease Status post coronary artery stent placement Postsurgical percutaneous transluminal coronary angioplasty status Class 2 obesity with body mass index (BMI) of 35.0 to 35.9 in adult, unspecified obesity type, unspecified whether serious comorbidity present documented in this encounter [facility] Work Phone: Evaluation note* Diagnosis Acute exacerbation of chronic obstructive pulmonary disease (CMS/HCC)- Primary Obstructive chronic bronchitis with exacerbation documented in this encounter [facility]* Diagnosis Coronary artery disease involving [place] coronary artery of [place] heart without angina pectoris- Primary Essential hypertension [...] hazards to health documented in this encounter [facility] Work Phone: Evaluation note* Diagnosis Sepsis, due to unspecified organism, unspecified whether acute organ dysfunction present (CMS/HCC)- Primary Pneumonia of right middle lobe due to infectious organism Hyponatremia Hyposmolality and/or hyponatremia Essential hypertension (CMS/HCC) Unspecified essential hypertension Chronic systolic congestive heart failure (CMS/HCC) Coronary artery disease involving [place] coronary artery of [place] heart without angina pectoris (CMS/HCC) Gastroesophageal reflux disease without esophagitis Esophageal reflux Benign prostatic hyperplasia without urinary obstruction documented in this encounter [facility]* Diagnosis Essential hypertension (CMS/HCC)- Primary Unspecified essential hypertension Chronic systolic congestive heart failure (CMS/HCC) Coronary artery disease involving [place] coronary artery of [place] heart without angina pectoris (CMS/HCC) Chronic obstructive pulmonary disease, unspecified COPD type (CMS/HCC) Pure hypercholesterolemia (CMS/HCC) Pure hypercholesterolemia Prediabetes Other abnormal glucose Elevated PSA Elevated prostate specific antigen (PSA) Benign prostatic hyperplasia without urinary obstruction Bacterial pneumonia Unspecified bacterial pneumonia Sinus drainage Other diseases of nasal cavity and sinuses documented in this encounter [facility]* Diagnosis Non-recurrent acute serous otitis media of right ear- Primary documented in this encounter [facility]* Diagnosis Coronary artery disease involving [place] coronary artery of [place] heart without angina pectoris- Primary Essential hypertension Unspecified essential hypertension Ischemic cardiomyopathy Other specified forms of chronic ischemic heart disease Mixed hyperlipidemia Status post coronary artery stent placement Postsurgical percutaneous transluminal coronary angioplasty status Former smoker Personal history of tobacco use, presenting hazards to health BMI 36.0-36.9,adult Class 2 obesity documented in this encounter [facility] Work Phone: Hospital course Narrative No data available for this section [facility] Hospital Discharge instructions Additional Instructions If your symptoms return/worsen or you develop any further concerns or symptoms please see your doctor or return to the emergency department immediately.[facility] Work Phone: Hospital Discharge instructions No data available for this section [facility] Progress note No data available for this section [facility] Reason for referral (narrative)* Consultation (Routine) - Authorized Specialty Diagnoses / Procedures Referred By Contac t Referred To Contact Cardiology Diagnoses Coronary artery disease involving [place] coronary artery of [place] heart without angina pectoris Essential hypertension Mixed hyperlipidemia Ischemic cardiomyopathy Status post coronary artery stent placement Class 2 obesity with body mass index (BMI) of 35.0 to 35.9 in adult, unspecified obesity type, unspecified whether serious comorbidity present Procedures Follow Up In Cardiology Rene Cortez MD [address] [address], [address] [address] Rene Cortez MD [address] [facility] [address], [address] [place] [address] Referral ID Status Reason Start Date Expiration Date V isits Requested Visits Authorized [id number] Authorized 03/23/2023 03/22/2024 1 1 [facility] Work Phone: Reason for referral (narrative)* Consultation (Routine) - Authorized Specialty Diagnoses / Procedures Referred By Contac t Referred To Contact Cardiology Diagnoses Coronary artery disease involving [place] coronary artery of [place] heart without angina pectoris Procedures Follow Up In Cardiology Rene Cortez MD [address] [facility] [address], [address] [place] [address] Rene Cortez MD [address] [facility] 2, [address] [address] Referral ID Status Reason Start Date Expiration Date V isits Requested Visits Authorized [id number] Authorized 10/18/2023 10/17/2024 1 1 [facility] Work Phone: Chief Complaint * DEMARCUS CALDERON is being seen for an annual follow-up of. * Patient is in the office for annual follow-up for coronary artery disease. He has had no events since his last seen in the office last year. Back in January 2021 he underwent Lexiscan perfusion study which revealed inferolateral and anterior myocardial infarction with no ischemia. EF in the [id number]. He remains compensated as for ischemic cardiomyopathy. [...] downwith emphasis on low-calorie diet * Rene Cortez MD, FACC * DEMARCUS CALDERON is being seen for an annual follow-up [...] with emphasis on low-calorie diet * Rene Cortez MD, [facility] Family History Unknown Family Member Name Dates Details Family [...] NECK W/O & W/CONTRAST Deandra Troncoso MD [address] [facility] [place] [address] Mr Imaging Referral ID Status Reason Start Date Expiration Date Visits Requested Visits Authorized [id number] Pending Review Auto-Generat ed Referral 06/21/2022 07/21/2023 1 1 Specialty Diagnoses / Procedures Referred By Contdanae t Referred To Contact MR IMAGING Diagnoses Paralytic strabismus Procedures MRI BRAIN WO/W IVCON MRI BRAIN BRAIN STEM W/O W/CONTRAST MATERIAL Deandra Bender MD [address] [place] [address] Mr Imaging Referral ID Status Reason Start Date Expiration Date Visits Requested Visits Authorized [id number] Pending Review Auto-Generat ed Referral 06/21/2022 07/21/2023 1 1 Summary Purpose Advance Directives Advance Directive Response Recorded Date/ Time Advance Directives No September 19 018 2:33pm Advance Directive Response Recorded Date/ [...] or prosecute any alcohol or drug abuse patient.[facility] AdministrationIn the event this information is protected by the Federal Confidentiality of Alcohol and Drug Abuse Patient Records regulations: The Federal rules restrict any use of the information to criminally investigate or prosecute any alcohol or drug abuse patient.[facility] AdministrationIn the event this information is protected by the Federal Confidentiality of Alcohol and Drug Abuse Patient Records regulations: The Federal rules restrict any use of the information to criminally investigate or prosecute any alcohol or drug abuse patient.[facility] AdministrationIn the event this information is protected by the Federal Confidentiality of Alcohol and Drug Abuse Patient Records regulations: The Federal rules restrict any use of the information to criminally investigate or prosecute any alcohol or drug abuse patient.[facility] AdministrationIn the event this information is protected by the Federal Confidentiality of Alcohol and Drug Abuse Patient Records regulations: The Federal rules restrict any use of the information to criminally investigate or prosecute any alcohol or drug abuse patient.[facility] Reason for Visit (unrecogniz ed section and [...] up to 100 units Procedures BOTOX EI [id number] [place] [address] [place] [address] Deandra Bender MD [address] [place] [address] Referral ID Status Reason Start Date Expiration Date V isits Requested Visits Authorized [id number] Authorized 11/14/2022 05/27/2023 99 99 Reason Comments Follow-up 6 months Reason Comments Follow-up 6m Specialty Diagnoses / Procedures Referred By Contac t Referred To Contact Cardiology Diagnoses Coronary artery disease involving conf[place] coronary artery of [place] heart without angina pectoris Essential hypertension Mixed hyperlipidemia Ischemic cardiomyopathy Status post coronary artery stent placement Class 2 obesity with body mass index (BMI) of 35.0 to 35.9 in adult, unspecified obesity type, unspecified whether serious comorbidity present Procedures Follow Up In Cardiology Rene Cortez MD [address] [place] [address] 2, [address] [address] Rene Cortez MD [address] [place] [address] 2, [address] [address] Referral ID Status Reason Start Date Expiration Date V isits Requested Visits Authorized [id number] Authorized 03/23/2023 03/22/2024 1 1 Reason Comments Hospital Follow-up [facility] dx: sepsis, COPD, pneumonia Reason Comments 6 Month Follow-up Lab drawn 02/27/2024 . Cough Productive cough con tinues with yellow sputum. Occasional shortness of breath. CXR ordered on 02/26 to repeat in 8 weeks Reason Comments Earache Reason Comments Follow-up 6 month Specialty Diagnoses / Procedures Referred By Contac t Referred To Contact Cardiology Diagnoses Coronary artery disease involving confed[place] coronary artery of [place] heart without angina pectoris Procedures Follow Up In Cardiology Rene Cortez MD [address] [place] [address] 2, [address] [address] Phone: tel: fax: Rene Cortez MD [address] [place] [address] [address], [address] [address] Phone: tel: fax: Referral ID Status Reason Start Date Expiration Date V isits Requested Visits Authorized [id number] Authorized 10/18/2023 10/17/2024 1 1 (unrecognized sect ion and content) No Status Records FoundNo Status Records FoundNo Status Records FoundNo Status Records FoundNo Status Records FoundNo Status Records FoundNo Status Records FoundNo Status Records FoundNo Status Records FoundNo Status Records Found INFORMATION SOURCE (unrecogn ized section and content) DATE CREATED AUTHOR 07/16/2022 [facility] dical Specialist DATE CREATED AUTHOR AUTHOR'S ORGANIZ ATION 09/09/2022 [employer] DATE CREATED AUTHOR AUTHOR'S ORGANIZ ATION 11/14/2022 [facility] DATE CREATED AUTHOR AUTHOR'S ORGANIZ ATION 02/12/2023 [facility] DATE CREATED AUTHOR AUTHOR'S ORGANIZ ATION 02/28/2023 [facility] DATE CREATED AUTHOR AUTHOR'S ORGANIZ ATION 06/25/2023 [facility] DATE CREATED AUTHOR AUTHOR'S ORGANIZ ATION 04/29/2024 [facility] DATE CREATED AUTHOR AUTHOR'S ORGANIZ ATION 05/10/2024 [facility] dical Specialists EPIC DATE CREATED AUTHOR AUTHOR'S ORGANIZ ATION 05/18/2024 [facility] DATE CREATED AUTHOR AUTHOR'S ORGANIZ ATION 06/24/2024 [facility] Care Teams (unrecognized sec tion and content) Personnel Name: Sera Flower PA-C Address: Address: [address] [place] [address] Team Status: Active Member Role Status Dates Sera Flower MD Primary Care Provider Active Team Status: Inactive Member Role Status Dates Sera Flower MD Primary Care Provider, Other Provider Active Rene Cortez MD Attending Provider Active Slider Assembler Relationship Specialty Start Date End Date Sera Flower MD [address] [place] [phone] PCP - General 02/16/21 Team Status: Inactive Member Role Status Dates Sera Flower MD Primary Care Provider Active St art: June 14, 2023 End: June 14, 2023 Jasper Gross DO Emergency Provider Active Start: June 14, 2023 End: June 14, 2023 Slider Assembler Relationship Specialty Start Date End Date Sera Flower MD [address] [place] [address] PCP - Hum[employer] 05/28/22 Sera Flower MD [address] [place] [address] PCP - General Internal Medicine 10/03/22 Slider Assembler Relationship Specialty Start Date End Date Sera Flower MD [address] [place] [phone] PCP - General 02/16/21 Slider Assembler Relationship Specialty Start Date End Date Sera Flower MD [address] [place] [address] PCP - Hum[employer] 05/28/22 Sera Flower MD [address] [place] [address] PCP - General Internal Medicine 10/03/22 Tootie Jacobson, DOUG [address] [place] [address] Registered Nurse Internal Medicine 08/10/23 Rene Cortez MD [address] [facility] [address] [place] [address] Referring Physician Cardiology 09/05/23 Slider Assembler Relationship Specialty Start Date End Date Sera Flower MD [address] [place] [address] PCP - Hum[employer] 05/28/22 Sera Flower MD [address] [place] [address] PCP - General Internal Medicine 10/03/22 Tootie Jacobson, DOUG [address] [place] [address] Registered Nurse Internal Medicine 08/10/23 03/28/24 Rene Cortez MD [address] [facility] [address] [place] [address] Referring Physician Cardiology 09/05/23 Slider Assembler Relationship Specialty Start Date End Date Sera Flower MD [address] [place] [address] PCP - Hum[employer] 05/28/22 Sera Flower MD [address] [place] [address] PCP - General Internal Medicine 10/03/22 Rene Cortez MD [address] [facility] [address] [place] [address] Referring Physician Cardiology 09/05/23 Orquidea Carreon, RN Registered Nurse Family Medicine 03/28/24 Slider Assembler Relationship Specialty Start Date End Date Sera Flower MD [address] [place] [address] PCP - Hum[employer] 05/28/22 Sera Flower MD [address] [place] [address] PCP - General Internal Medicine 10/03/22 Tootie Jacobson RN [address] [place] [address] Registered Nurse Internal Medicine 08/10/23 Rene Cortez MD [address] [facility] [address] [place] [address] Referring Physician Cardiology 09/05/23 Slider Assembler Relationship Specialty Start Date End Date Sera Flower MD [address] [place] [address] PCP - Hum[employer] 05/28/22 Sera Flower MD [address] [place] [address] PCP - General Internal Medicine 10/03/22 Tootie Jacobson RN [address] [place] [address] Registered Nurse Internal Medicine 08/10/23 Rene Cortez MD [address] [facility] [address] [place] [address] Referring Physician Cardiology 09/05/23 Slider Assembler Relationship Specialty Start Date End Date Sera Flower MD [address] [place] [address] PCP - Hum[employer] 05/28/22 Sera Flower MD [address] [place] [address] PCP - General Internal Medicine 10/03/22 Tootie Jacobson RN [address] [place] [address] Registered Nurse Internal Medicine 08/10/23 Rene Cortez MD [address] [facility] [address] [place] [address] Referring Physician Cardiology 09/05/23 Slider Assembler Relationship Specialty Start Date End Date Sera Flower MD [address] [place] [address] PCP - General 02/16/21 Goals (unrecognized section and content) Goals may be documented in a n alternate sectionGoals may be documented in an alternate section No data available for this section No data available for this section No data available for this section No data available for this section No data available for this section FOR RECORDS PERTAINING TO PATIENTS WHO [...] BE BASED ON THE PRIMARY CLINICAL RECORDS. That{img} [facility]. provides no warranty or guarantee of the accuracy or completeness of information in this document.
[2024-06-29] MEDS: PREDNISONE 20 MG TABLET 40 MG PO (08:47)
[2024-06-29] MEDS: AZITHROMYCIN 250 MG TABLET 500 MG PO (08:47)
[2024-06-29] MEDS: IPRATROPIUM/ALBUTEROL SULFATE 3 ML AMPUL.NEB IH (08:52)
[2024-06-29 08:55] VITALS: PULSE 68; O2SAT 95
== END 2024-06-29 09:06 | disposition home or self-care (01) ==
PROVIDERS: Emergency Provider Emergency Medicine; PCP Internal Medicine
DX: J44.1 Chronic obstructive pulmonary disease with (acute) exacerbation (principal); Z87.891 Personal history of nicotine dependence; Z95.5 Presence of coronary angioplasty implant and graft
CPT/HCPCS: 94640; 99283; J7512

== ENCOUNTER 2024-09-08 12:26 | Emergency (ER) | payer MEDICARE, OTHER, SELFPAY ==
[2024-09-08] VITALS (12 sets, daily range): BP systolic 152; BP diastolic 79; PULSE 59–70; O2SAT 97–98; BMI 36.5
--- NOTE | 2024-09-08 12:58 | ED.GENADUL1 ---
HPI HPI - General Adult General Chief complaint: Shortness of Breath/Dyspnea Stated complaint: SOB, COUGH Time Seen by Provider: 09/08/24 12:50 Source: patient Mode of arrival: walk-in Limitations: no limitations History of Present Illness HPI narrative: Patient states she has a history of asthma in the last couple weeks has had more shortness of breath with cough with sputum production. He denies fever or bodyaches. He also has a history of ischemic heart disease and states that he has 5 stents in his heart. He used his inhaler once today half hour before coming in and his nebulizer in the morning. Related Data Home Medications ?Medication ?Instructions ?Recorded ?Confirmed carvedilol 6.25 mg tablet 6.25 mg PO Q12H 07/22/23 02/17/24 losartan 50 mg tablet 50 mg PO DAILY 07/22/23 02/17/24 omeprazole 20 mg capsule,delayed 20 mg PO Q24H 07/22/23 02/17/24 release tamsulosin 0.4 mg capsule 0.4 mg PO DAILY 07/22/23 02/17/24 sodium chloride 0.9 % for 3 ml inhalation BID 02/15/24 02/17/24 nebulization sildenafil 100 mg tablet 100 mg PO Q24H PRN erectile 02/17/24 02/17/24 dysfunction Previous Rx's ?Medication ?Instructions ?Recorded albuterol sulfate 90 mcg/actuation 2 inh inhalation Q6H PRN shortness 12/25/23 aerosol inhaler (Ventolin HFA) of breath or wheezing #6.7 grams furosemide 40 mg tablet (Lasix) 40 mg PO DAILY #30 tabs 12/25/23 ipratropium 0.5 mg-albuterol 3 mg 3 ml inhalation Q6H PRN shortness 02/02/24 (2.5 mg base)/3 mL nebulization of breath #90 mL soln azithromycin 250 mg tablet See Rx Instructions PO .COMPLEX #6 06/29/24 (Zithromax Z-Santos) tabs guaifenesin 600 mg tablet, 600 mg PO BID PRN cough #14 tabs 06/29/24 extended release 12 hr (Mucinex) prednisone 50 mg tablet 50 mg PO DAILY 5 days #5 tabs 06/29/24 doxycycline hyclate 100 mg capsule 100 mg PO BID 10 days #20 caps 09/08/24 prednisone 20 mg tablet 40 mg (2 x 20 mg) PO DAILY 5 days 09/08/24 #10 tabs Allergies Allergy/AdvReac Type Severity Reaction Status Date / Time codeine Allergy Intermediate Hallucinati Verified 09/08/24 12:29 ng Opioid HPI Opioid Management Most Recent Opioid Data: Last Pain Scale 3 02/16/24 09:49 02/16/24 Last ORT Total Score 0 02/17/24 13:11 02/17/24 Last ORT Risk Category Low Risk 02/17/24 13:11 02/17/24 Review of Systems ROS Status of ROS 10 or more systems reviewed and unremarkable except as noted in history and below [facility] Medical History Pneumonia due to COVID-19 virus ?U07.1 - COVID-19 (ICD-10) ?J12.82 - Pneumonia due to coronavirus disease 2019 (ICD-10) COVID-19 ?U07.1 - COVID-19 (ICD-10) Acute on chronic congestive heart failure ?I50.9 - Heart failure, unspecified (ICD-10) COPD exacerbation ?J44.1 - Chronic obstructive pulmonary disease with (acute) exacerbation (ICD-10) Congestive heart failure ?I50.9 - Heart failure, unspecified (ICD-10) BPH (benign prostatic hyperplasia) ?N40.0 - Benign prostatic hyperplasia without lower urinary tract symptoms (ICD-10) CAD (coronary artery disease) ?I25.10 - Atherosclerotic heart disease of [place] coronary artery without angina pectoris (ICD-10) GERD (gastroesophageal reflux disease) ?K21.9 - Gastro-esophageal reflux disease without esophagitis (ICD-10) Hypertension ?I10 - Essential (primary) hypertension (ICD-10) COPD (chronic obstructive pulmonary disease) ?J44.9 - Chronic obstructive pulmonary disease, unspecified (ICD-10) Bronchitis ?J40 - Bronchitis, not specified as acute or chronic (ICD-10) Emphysema of lung ?J43.9 - Emphysema, unspecified (ICD-10) Heart attack ?I21.9 - Acute myocardial infarction, unspecified (ICD-10) COPD exacerbation ?J44.1 - Chronic obstructive pulmonary disease with (acute) exacerbation (ICD-10) COVID-19 ?U07.1 - COVID-19 (ICD-10) Surgical History H/O sinus surgery ?Z98.890 - Other specified postprocedural states (ICD-10) H/O shoulder surgery ?Z98.890 - Other specified postprocedural states (ICD-10) H/O heart artery stent ?Z95.5 - Presence of coronary angioplasty implant and graft (ICD-10) Family History Aunt Family history of cancer Mother Family history of diabetes mellitus Brother Family history of hypertension Father Family history of hypertension Social History Within the past year, how often did you have a drink containing alcohol: never Score interpretation: A score less than 4 is consistent with normal alcohol consumption. 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 Known occupational exposures/hazards: No Highest level of school completed/degree received: high school graduate Are you now , , , , never or living with a partner: In a typical week, how many times do you talk on the telephone with family, friends, or neighbors: 3 or more times per week How often do you get together with friends or relatives: 3 or more times per week How often do you attend congregational or yazidism services: never Little interest or pleasure in doing things: not at all Feeling down, depressed, or hopeless: not at all Feel stressed/tense/nervous/anxious/difficulty sleeping: not at all Do you think of yourself as: straight/heterosexual Gender Identity: male Exam Narrative Exam Narrative: Patient is obese in appearance and does not appear in acute respiratory distress. His vital signs are stable and his oxygen saturation is 98% on room air. HEENT exam is normal to inspection. Neck is supple. Lung sounds are diminished throughout. Heart has regular rate and rhythm. Abdomen is protuberant, soft nontender. He does not have unilateral leg swelling. Speech and mentation are clear and intact and there is no facial asymmetry. He moves all extremities actively. Constitutional Vital Signs, click to edit/add: Last Vital Signs Pulse 70 09/08/24 14:50 Resp 20 09/08/24 14:50 BP 152/79 H 09/08/24 12:29 Pulse Ox 98 09/08/24 13:10 O2 Del Method Room Air 09/08/24 13:10 Course Vital Signs Vital signs: Vital Signs Pulse Rate 68 09/08/24 12:29 Respiratory Rate 20 09/08/24 12:29 Blood Pressure 152/79 H 09/08/24 12:29 Pulse Oximetry 97 09/08/24 12:29 Oxygen Delivery Method Room Air 09/08/24 12:29 Pulse Rate 70 09/08/24 14:50 Respiratory Rate 20 09/08/24 14:50 Blood Pressure 152/79 H 09/08/24 12:29 Pulse Oximetry 98 09/08/24 13:10 Oxygen Delivery Method Room Air 09/08/24 13:10 Medical Decision Making MDM Narrative Medical decision making narrative: The twelve-lead EKG is interpreted by me and shows sinus rhythm with a rate of 62 beats a minute. No acute ischemic changes are noted. The chest x-ray shows reticular opacities felt to be chronic. Patient presents with a presentation of COPD exacerbation. Cardiac workup is negative. He is advised to use his inhaler nebulizers such that he gets at least 4 treatments a day. He is placed on doxycycline 100 mg twice a day for 10 days and prednisone burst of 40 mg daily for 5 days. He is referred to his PCP for follow-up within a week's time and may return anytime for worsening symptoms. Lab Data Labs: Lab Results 09/08/24 Range/Units 13:15 WBC 7.4 (4.0-11.0) 10^3/uL RBC 4.70 (4.70-6.10) 10^6/uL Hgb 13.6 L (14.0-18.0) g/dL Hct 39.3 L (42.0-54.0) % MCV 83.6 (80.0-94.0) fL MCH 28.9 (25.9-34.0) pg MCHC 34.6 (29.9-35.2) g/dL RDW 14.4 (11.0-15.0) % Plt Count 179 (150-450) 10^3/uL MPV 10.4 (9.5-13.5) fL Neut % (Auto) 53.6 (43.0-75.0) % Lymph % (Auto) 21.8 (20.5-60.0) % [place] % (Auto) 10.9 (1.7-12.0) % Eos % (Auto) 12.5 H (0.9-7.0) % Baso % (Auto) 0.9 (0.2-2.0) % Neut # (Auto) 4.0 (1.4-6.5) 10^3/uL Lymph # (Auto) 1.6 (1.2-3.8) 10^3/uL [place] # (Auto) 0.8 (0.3-0.8) 10^3/uL Eos # (Auto) 0.9 H (0.0-0.7) 10^3/uL Baso # (Auto) 0.1 (0.0-0.1) 10^3/uL Abs Immat Gran (auto) 0.02 (0.00-0.03) 10^3/uL Imm/Tot Granulo (auto) 0.3 (0.0-0.5) % D-Dimer 0.37 (<=0.59) mg/L FEU Sodium 132 L (136-145) mmol/L Potassium 4.0 (3.5-5.1) mmol/L Chloride 100 (98-107) mmol/L Carbon Dioxide 22.8 (21.0-32.0) mmol/L Anion Gap 13.2 BUN 12.0 (7.0-18.0) mg/dL Creatinine 0.91 (0.70-1.30) mg/dL Est GFR ( Amer) >60 (>=60 mL/min/1.73m^2) Est GFR (Non-Af Amer) >60 (>=60 mL/min/1.73m^2) BUN/Creatinine Ratio 13.2 Glucose 99 (74-106) mg/dL Calcium 8.7 (8.5-10.1) mg/dL Total Bilirubin 0.4 (0.2-1.0) mg/dL AST 31 (15-37) U/L ALT 34 (16-63) U/L Alkaline Phosphatase 90 (46-116) U/L Troponin I High Sens 14.6 (4.0-76.1) pg/mL Total Protein 6.6 (6.4-8.2) g/dL Albumin 3.5 (3.4-5.0) g/dL Globulin 3.1 g/dL Albumin/Globulin Ratio 1.1 Discharge Plan Discharge Chief Complaint: Shortness of Breath/Dyspnea Clinical Impression: COPD exacerbation Patient Disposition: Home, Self-Care Time of Disposition Decision: 15:20 Condition: Good Mode of Transportation: Private Vehicle Prescriptions / Home Meds: New doxycycline hyclate 100 mg capsule 100 mg PO BID 10 Days Qty: 20 0RF prednisone 20 mg tablet 40 mg PO DAILY 5 Days Qty: 10 0RF No Action furosemide [Lasix] 40 mg tablet 40 mg PO DAILY Qty: 30 0RF albuterol sulfate [Ventolin HFA] 90 mcg/actuation HFA aerosol inhaler 2 inh inhalation Q6H PRN (Reason: shortness of breath or wheezing) Qty: 6.7 0RF sodium chloride 0.9 % solution for nebulization 3 ml INHALATION BID azithromycin [Zithromax Z-Santos] 250 mg tablet See Rx Instructions .ROUTE .COMPLEX Qty: 6 0RF Rx Instructions: For 250 mg dose pack: take 500 mg today (day 1), then 250 mg for 4 days (days 2-5) prednisone 50 mg tablet 50 mg PO DAILY 5 Days Qty: 5 0RF guaifenesin [Mucinex] 600 mg tablet extended release 12hr 600 mg PO BID PRN (Reason: cough) Qty: 14 0RF tamsulosin 0.4 mg capsule 0.4 mg PO DAILY carvedilol 6.25 mg tablet 6.25 mg PO Q12H losartan 50 mg tablet 50 mg PO DAILY omeprazole 20 mg capsule,delayed release(DR/EC) 20 mg PO Q24H ipratropium-albuterol 0.5 mg-3 mg(2.5 mg base)/3 mL solution for nebulization 3 ml inhalation Q6H PRN (Reason: shortness of breath) Qty: 90 0RF sildenafil 100 mg tablet 100 mg PO Q24H PRN (Reason: erectile dysfunction) Print Language: [place] Instructions: COPD (Chronic Obstructive Pulmonary Disease) (ED) Additional Instructions: Between your inhaler and nebulizer try to get at least 4 treatments a day. Medications as prescribed. Follow-up with your physician within a week. Return for worsening symptoms. Referrals: SERA FLOWER [Primary Care Provider] - 1 week Discharge Date/Time: 09/08/24 15:36
--- NOTE | 2024-09-08 12:59 | ECG_ITS ---
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 Measurements Intervals [place] Rate: 62 P: 18 HI: 164 QRS: -9 QRSD: 100 T: 51 QT: 420 QTc: 424 Interpretive Statements 1100 Sinus rhythm 3613 Cannot rule out inferior myocardial infarction, probably old 5222 Moderate voltage criteria for LVH, may be normal variant 9150 abnormal ECG Compared to ECG 02/17/2024 10:56:02 Myocardial infarct finding now present Left ventricular hypertrophy now present Electronically Signed On 09-08-2024 20:29:28 EDT by MELANY CHEN M.D.
[2024-09-08 13:29] LABS: Basophils Absolute Auto 0.1 10^3/uL (0.0-0.1); Basophils Percent Auto 0.9 % (0.2-2.0); Eosinophils Absolute Auto 0.9 10^3/uL (0.0-0.7); Eosinophils Percent Auto 12.5 % (0.9-7.0); Hematocrit 39.3 % (42.0-54.0); Hemoglobin 13.6 g/dL (14.0-18.0); Immature Granulocytes Abs Auto 0.02 10^3/uL (0.00-0.03); Immature Granulocytes Pct Auto 0.3 % (0.0-0.5); Lymphocytes Absolute Auto 1.6 10^3/uL (1.2-3.8); Lymphocytes Percent Auto 21.8 % (20.5-60.0); Mean Corpuscular HGB Conc 34.6 g/dL (29.9-35.2); Mean Corpuscular Hemoglobin 28.9 pg (25.9-34.0); Mean Corpuscular Volume 83.6 fL (80.0-94.0); Mean Platelet Volume 10.4 fL (9.5-13.5); Monocytes Absolute Auto 0.8 10^3/uL (0.3-0.8); Monocytes Percent Auto 10.9 % (1.7-12.0); Neutrophils Percent Auto 53.6 % (43.0-75.0); Platelet Count 179 10^3/uL (150-450); Red Cell Distribution Width 14.4 % (11.0-15.0); White Blood Count 7.4 10^3/uL (4.0-11.0)
[2024-09-08] MEDS: IPRATROPIUM/ALBUTEROL SULFATE 3 ML AMPUL.NEB IH (13:34)
[2024-09-08] MEDS: METHYLPREDNISOLONE SOD SUCC PF 40 MG/ML VIAL 125 MG IVP (13:39)
[2024-09-08 13:41] LABS: D Dimer 0.37 mg/L FEU (<=0.59)
[2024-09-08 13:45] LABS: Troponin I High Sensitivity 14.6 pg/mL (4.0-76.1)
--- NOTE | 2024-09-08 13:48 | RESP.RT ---
done per nursing
[2024-09-08 13:52] LABS: Alanine Aminotransferase 34 U/L (16-63); Albumin Globulin Ratio 1.1; Albumin Level 3.5 g/dL (3.4-5.0); Alkaline Phosphatase 90 U/L (46-116); Anion Gap 13.2; Aspartate Amino Transferase 31 U/L (15-37); BUN Creatinine Ratio 13.2; Bilirubin Total 0.4 mg/dL (0.2-1.0); Calcium 8.7 mg/dL (8.5-10.1); Carbon Dioxide 22.8 mmol/L (21.0-32.0); Chloride 100 mmol/L (98-107); Estimated GFR (African America >60 (>=60 mL/min/1.73m^2); Estimated GFR (Non-African Ame >60 (>=60 mL/min/1.73m^2); Globulin 3.1 g/dL; Glucose 99 mg/dL (74-106); Sodium 132 mmol/L (136-145); Total Protein 6.6 g/dL (6.4-8.2)
== END 2024-09-08 15:36 | disposition home or self-care (01) ==
PROVIDERS: Emergency Provider Emergency Medicine; PCP Internal Medicine
DX: J44.1 Chronic obstructive pulmonary disease with (acute) exacerbation (principal); Z95.5 Presence of coronary angioplasty implant and graft; I25.9 Chronic ischemic heart disease, unspecified; Z87.891 Personal history of nicotine dependence; E66.9 Obesity, unspecified; Z68.36 Body mass index [BMI] 36.0-36.9, adult
CPT/HCPCS: 36415; 71046; 80053; 84484; 85025; 85378; 93005; 94640; 96374; 99285; J2919

== ENCOUNTER 2024-09-22 12:07 | Emergency (ER) | payer MEDICARE, OTHER, SELFPAY ==
[2024-09-22] VITALS (23 sets, daily range): BP systolic 143; BP diastolic 69–85; PULSE 60–70; TEMP 37.1; O2SAT 91–100; BMI 36.5
--- NOTE | 2024-09-22 12:24 | ECG_ITS ---
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 Measurements Intervals [place] Rate: 63 P: 36 NH: 154 QRS: 0 QRSD: 100 T: 98 QT: 410 QTc: 418 Interpretive Statements 1100 Sinus rhythm 3613 Cannot rule out inferior myocardial infarction, probably old 4068 Nonspecific [place] abnormality 5222 Moderate voltage criteria for LVH, may be normal variant 9130 borderline ECG Compared to ECG 09/08/2024 13:08:03 No significant changes Electronically Signed On 09-22-2024 16:09:45 EDT by MELANY CHEN M.D.
[2024-09-22 12:46] LABS: Basophils Absolute Auto 0.1 10^3/uL (0.0-0.1); Basophils Percent Auto 0.9 % (0.2-2.0); Eosinophils Absolute Auto 0.8 10^3/uL (0.0-0.7); Eosinophils Percent Auto 8.9 % (0.9-7.0); Hematocrit 38.6 % (42.0-54.0); Hemoglobin 13.2 g/dL (14.0-18.0); Immature Granulocytes Abs Auto 0.02 10^3/uL (0.00-0.03); Immature Granulocytes Pct Auto 0.2 % (0.0-0.5); Lymphocytes Absolute Auto 1.1 10^3/uL (1.2-3.8); Lymphocytes Percent Auto 11.8 % (20.5-60.0); Mean Corpuscular HGB Conc 34.2 g/dL (29.9-35.2); Mean Corpuscular Hemoglobin 28.9 pg (25.9-34.0); Mean Corpuscular Volume 84.5 fL (80.0-94.0); Mean Platelet Volume 9.9 fL (9.5-13.5); Monocytes Absolute Auto 1.1 10^3/uL (0.3-0.8); Monocytes Percent Auto 11.8 % (1.7-12.0); Neutrophils Absolute Auto 6.2 10^3/uL (1.4-6.5); Neutrophils Percent Auto 66.4 % (43.0-75.0); Platelet Count 197 10^3/uL (150-450); Red Blood Count 4.57 10^6/uL (4.70-6.10); Red Cell Distribution Width 14.5 % (11.0-15.0); White Blood Count 9.4 10^3/uL (4.0-11.0)
[2024-09-22 12:58] LABS: Influenza Virus A Antigen Negative; Influenza Virus B Antigen Negative; Internal Control Within Normal Limits
[2024-09-22 12:59] LABS: Internal Control Within Normal Limits; SARS-CoV-2 Ag NEGATIVE (NEGATIVE)
[2024-09-22 13:05] LABS: Alanine Aminotransferase 32 U/L (16-63); Albumin Globulin Ratio 0.9; Alkaline Phosphatase 74 U/L (46-116); Anion Gap 14.3; Aspartate Amino Transferase 26 U/L (15-37); BUN Creatinine Ratio 10.4; Bilirubin Total 0.6 mg/dL (0.2-1.0); Calcium 8.6 mg/dL (8.5-10.1); Chloride 101 mmol/L (98-107); Estimated GFR (African America >60 (>=60 mL/min/1.73m^2); Estimated GFR (Non-African Ame >60 (>=60 mL/min/1.73m^2); Globulin 3.3 g/dL; Glucose 125 mg/dL (74-106); Potassium 4.3 mmol/L (3.5-5.1); Sodium 135 mmol/L (136-145); Total Protein 6.3 g/dL (6.4-8.2)
[2024-09-22 13:11] LABS: Troponin I High Sensitivity 10.6 pg/mL (4.0-76.1)
--- NOTE | 2024-09-22 13:29 | ED_ITS ---
HPI - SOB/Dyspnea General Chief Complaint: Shortness of Breath/Dyspnea Stated Complaint: WEAK COUGHING Time Seen by Provider: 09/22/24 12:23 Source: patient Mode of arrival: walk-in Limitations: no limitations History of Present Illness HPI Narrative: The patient is coming to the ER with shortness of breath that been going on since he was diagnosed with A-fib almost a month ago, patient mentioned though that 4 days ago when he was mowing the lawn he was just sitting on the more when he felt little bit some chest pressure, this chest pressure was 4 days ago and has been continuous since then No sweating nausea vomiting or any other concern although he have a baseline shortness of breath, the patient denies any other concerns his last stress test was done within the last 3 years and it was normal The patient follow-up with cardiology with Dr. Stephenson Related Data Home Medications ?Medication ?Instructions ?Recorded ?Confirmed carvedilol 6.25 mg tablet 6.25 mg PO Q12H 07/22/23 09/22/24 losartan 50 mg tablet 50 mg PO DAILY 07/22/23 09/22/24 omeprazole 20 mg capsule,delayed 20 mg PO Q24H 07/22/23 09/22/24 release tamsulosin 0.4 mg capsule 0.4 mg PO DAILY 07/22/23 09/22/24 sildenafil 100 mg tablet 100 mg PO Q24H PRN erectile 02/17/24 09/22/24 dysfunction Previous Rx's ?Medication ?Instructions ?Recorded albuterol sulfate 90 mcg/actuation 2 inh inhalation Q6H PRN shortness 12/25/23 aerosol inhaler (Ventolin HFA) of breath or wheezing #6.7 grams furosemide 40 mg tablet (Lasix) 40 mg PO DAILY #30 tabs 12/25/23 ipratropium 0.5 mg-albuterol 3 mg 3 ml inhalation Q6H PRN shortness 02/02/24 (2.5 mg base)/3 mL nebulization of breath #90 mL soln Allergies Allergy/AdvReac Type Severity Reaction Status Date / Time codeine Allergy Intermediate Hallucinati Verified 09/22/24 12:12 ng Review of Systems ROS Status of ROS 10 or more systems reviewed and unremark able except as noted in history and below [facility] Medical History Pneumonia due to COVID-19 virus ?U07.1 - COVID-19 (ICD-10) ?J12.82 - Pneumonia due to coronavirus disease 2019 (ICD-10) COVID-19 ?U07.1 - COVID-19 (ICD-10) Acute on chronic congestive heart failure ?I50.9 - Heart failure, unspecified (ICD-10) COPD exacerbation ?J44.1 - Chronic obstructive pulmonary disease with (acute) exacerbation (ICD-10) Congestive heart failure ?I50.9 - Heart failure, unspecified (ICD-10) BPH (benign prostatic hyperplasia) ?N40.0 - Benign prostatic hyperplasia without lower urinary tract symptoms (ICD-10) CAD (coronary artery disease) ?I25.10 - Atherosclerotic heart disease of [place] coronary artery without angina pectoris (ICD-10) GERD (gastroesophageal reflux disease) ?K21.9 - Gastro-esophageal reflux disease without esophagitis (ICD-10) Hypertension ?I10 - Essential (primary) hypertension (ICD-10) COPD (chronic obstructive pulmonary disease) ?J44.9 - Chronic obstructive pulmonary disease, unspecified (ICD-10) Bronchitis ?J40 - Bronchitis, not specified as acute or chronic (ICD-10) Emphysema of lung ?J43.9 - Emphysema, unspecified (ICD-10) Heart attack ?I21.9 - Acute myocardial infarction, unspecified (ICD-10) COPD exacerbation ?J44.1 - Chronic obstructive pulmonary disease with (acute) exacerbation (ICD -10) COVID-19 ?U07.1 - COVID-19 (ICD-10) Surgical History H/O sinus surgery ?Z98.890 - Other specified postprocedural states (ICD-10) H/O shoulder surgery ?Z98.890 - Other specified postprocedural states (ICD-10) H/O heart artery stent ?Z95.5 - Presence of coronary angioplasty implant and graft (ICD-10) Family History Aunt Family history of cancer Mother Family history of diabetes mellitus Brother Family history of hypertension Father Family history of hypertension Social History Within the past year, how often did you have a drink containing alcohol: never Score interpretation: A score less than 4 is consistent with normal alcohol consumption. 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 Known occupational exposures/hazards: No Highest level of school completed/degree received: high school graduate Are you now , , , , never or living with a partner: In a typical week, how many times do you talk on the telephone with family, friends, or neighbors: 3 or more times per week How often do you get together with friends or relatives: 3 or more times per week How often do you attend buddhism or restoration services: never Little interest or pleasure in doing things: not at all Feeling down, depressed, or hopeless: not at all Feel stressed/tense/nervous/anxious/difficulty sleeping: not at all Do you think of yourself as: straight/heterosexual Gender Identity: male Exam Narrative Exam Narrative: Nurses notes and vital signs reviewed and patient is not hypoxic. General: Well-appearing and in no apparent distress. Skin: Warm, dry, no pallor noted. No rash. Head: Normocephalic, atraumatic. Neck: Supple, non-tender. Eye: Pupils are equal, round and EOMI. No scleral icterus. Ears, Nose, Mouth, and Throat: TM are clear, no nasal mucosal hypertrophy. Oral mucosa is moist, no posterior oropharynx erythema, uvula is mid-line Cardiovascular: Regular Rate and Rhythm without murmur, gallop or rub. Respiratory: No accessory muscle use or respiratory distress. Lungs are clear to auscultation, no wheezing, rales or rhonchi Chest Wall: no tenderness Back: No midline thoracic or lumbar vertebral tenderness. No CVA tenderness Musculoskeletal: normal ROM, no calf or popliteal tenderness, 1+ pitting edema bilaterally and the patient wearing compression stocking, GI: Abdomen is soft, non-distended. Normal bowel sounds. No masses appreciated. No tenderness to palpation. No rebound, guarding, or rigidity noted. Neurological: A&O x4. No cranial nerve dysfunction observed. Moves all extremities. Sensation intact. Psychiatric: Cooperative and interactive. Normal mood and affect. Constitutional Vital Signs, click to edit/add: Last Vital Signs Temp 98.7 F 09/22/24 12:12 Pulse 67 09/22/24 15:24 Resp 24 H 09/22/24 15:24 BP 143/85 H 09/22/24 15:24 Pulse Ox 97 09/22/24 15:24 O2 Del Method Room Air 09/22/24 14:24 Course Vital Signs Vital signs: Vital Signs Temperature 98.7 F 09/22/24 12:12 Pulse Rate 70 09/22/24 12:12 Respiratory Rate 118 H 09/22/24 12:12 Blood Pressure 143/69 H 09/22/24 12:12 Pulse Oximetry 94 L 09/22/24 12:12 Oxygen Delivery Method Room Air 09/22/24 12:12 Temperature 98.7 F 09/22/24 12:12 Pulse Rate 67 09/22/24 15:24 Respiratory Rate 24 H 09/22/24 15:24 Blood Pressure 143/85 H 09/22/24 15:24 Pulse Oximetry 97 09/22/24 15:24 Oxygen Delivery Method Room Air 09/22/24 14:24 MDM - SOB/Dyspnea MDM Narrative Medical decision making narrative: The patient EKG showing sinus rhythm with a heart rate of [address] elevation or depression The patient chest x-ray showed no acute pathology CBC and chemistry showed no acute pathology with no elevated BNP up as well I reviewed the patient workup from before he was already on hydrochlorothiazide and his medication was changed and stopped because of acute kidney injury that he had earlier this year Right now the patient creatinine is 1.6 he did get better after 1 dose of nitroglycerin but with his current presentation this could be secondary also to esophageal spasm specially that the patient does not have any elevation in troponin and no EKG changes The patient right now had his case discussed with Dr. Long and cardiology service and he will just follow-up with cardiology as outpatient Patient will keep an eye on his blood pressure and monitor his symptoms The patient is to follow up with primary care physician in next 2-3 days or to return to the emergency department should any of the signs or symptoms worsen or new symptoms develop. The patient agrees with the following Diagnosis and Treatment plan and the patient will be discharged home. Lab Data Labs: Lab Results 09/22/24 Range/Units 12:40 WBC 9.4 (4.0-11.0) 10^3/uL RBC 4.57 L (4.70-6.10) 10^6/uL Hgb 13.2 L (14.0-18.0) g/dL Hct 38.6 L (42.0-54.0) % MCV 84.5 (80.0-94.0) fL MCH 28.9 (25.9-34.0) pg MCHC 34.2 (29.9-35.2) g/dL RDW 14.5 (11.0-15.0) % Plt Count 197 (150-450) 10^3/uL MPV 9.9 (9.5-13.5) fL Neut % (Auto) 66.4 (43.0-75.0) % Lymph % (Auto) 11.8 L (20.5-60.0) % [place] % (Auto) 11.8 (1.7-12.0) % Eos % (Auto) 8.9 H (0.9-7.0) % Baso % (Auto) 0.9 (0.2-2.0) % Neut # (Auto) 6.2 (1.4-6.5) 10^3/uL Lymph # (Auto) 1.1 L (1.2-3.8) 10^3/uL [place] # (Auto) 1.1 H (0.3-0.8) 10^3/uL Eos # (Auto) 0.8 H (0.0-0.7) 10^3/uL Baso # (Auto) 0.1 (0.0-0.1) 10^3/uL Abs Immat Gran (auto) 0.02 (0.00-0.03) 10^3/uL Imm/Tot Granulo (auto) 0.2 (0.0-0.5) % Sodium 135 L (136-145) mmol/L Potassium 4.3 (3.5-5.1) mmol/L Chloride 101 (98-107) mmol/L Carbon Dioxide 24.0 (21.0-32.0) mmol/L Anion Gap 14.3 BUN 11.0 (7.0-18.0) mg/dL Creatinine 1.06 (0.70-1.30) mg/dL Est GFR ( Amer) >60 (>=60 mL/min/1.73m^2) Est GFR (Non-Af Amer) >60 (>=60 mL/min/1.73m^2) BUN/Creatinine Ratio 10.4 Glucose 125 H (74-106) mg/dL Calcium 8.6 (8.5-10.1) mg/dL Total Bilirubin 0.6 (0.2-1.0) mg/dL AST 26 (15-37) U/L ALT 32 (16-63) U/L Alkaline Phosphatase 74 (46-116) U/L Troponin I High Sens 10.6 (4.0-76.1) pg/mL NT-Pro-B Natriuret Pep 361.0 (<=900.0) pg/mL Total Protein 6.3 L (6.4-8.2) g/dL Albumin 3.0 L (3.4-5.0) g/dL Globulin 3.3 g/dL Albumin/Globulin Ratio 0.9 Influenza Type A Ag Negative Influenza Type B Ag Negative SARS-CoV-2 Ag (CV2AG) Negative (NEGATIVE) Discharge Plan Discharge Chief Complaint: Shortness of Breath/Dyspnea Clinical Impression: Congestive heart failure Patient Disposition: Home, Self-Care Time of Disposition Decision: 15:17 Condition: Good Prescriptions / Home Meds: Continued furosemide [Lasix] 40 mg tablet 40 mg PO DAILY Qty: 30 0RF No Action albuterol sulfate [Ventolin HFA] 90 mcg/actuation HFA aerosol inhaler 2 inh inhalation Q6H PRN (Reason: shortness of breath or wheezing) Qty: 6.7 0RF tamsulosin 0.4 mg capsule 0.4 mg PO DAILY carvedilol 6.25 mg tablet 6.25 mg PO Q12H losartan 50 mg tablet 50 mg PO DAILY omeprazole 20 mg capsule,delayed release(DR/EC) 20 mg PO Q24H ipratropium-albuterol 0.5 mg-3 mg(2.5 mg base)/3 mL solution for nebulization 3 ml inhalation Q6H PRN (Reason: shortness of breath) Qty: 90 0RF sildenafil 100 mg tablet 100 mg PO Q24H PRN (Reason: erectile dysfunction) Print Language: Spanish Instructions: Heart Failure (DC) Referrals: SERA FLOWER [Primary Care Provider] - 1 week Discharge Date/Time: 09/22/24 15:36
[2024-09-22] MEDS: METHYLPREDNISOLONE SOD SUCC PF 125 MG/2 ML VIAL IVP (14:00)
[2024-09-22] MEDS: IPRATROPIUM/ALBUTEROL SULFATE 3 ML AMPUL.NEB IH (14:22)
[2024-09-22] MEDS: FUROSEMIDE 40 MG/4 ML VIAL IVP (15:24)
--- NOTE | 2024-09-22 16:39 | ED.SOB1 ---
HPI - SOB/Dyspnea General Chief Complaint: Shortness of Breath/Dyspnea Stated Complaint: WEAK COUGHING Time Seen by Provider: 09/22/24 12:23 Source: patient Mode of arrival: walk-in Limitations: no limitations History of Present Illness HPI Narrative: The patient is coming to the ER with a shortness of breath, patient that he has been feeling congested since almost 2 weeks, patient was already evaluated almost 2 weeks ago in our facility where he was diagnosed with possible COPD but his symptoms did not get better, he mentioned that he was taking Lasix before for his CHF and it was stopped for some reason by his primary care Patient denies any cough but he does have some difficulty breathing and some mild leg edema No chest pain at any time Related Data Home Medications ?Medication ?Instructions ?Recorded ?Confirmed carvedilol 6.25 mg tablet 6.25 mg PO Q12H 07/22/23 09/22/24 losartan 50 mg tablet 50 mg PO DAILY 07/22/23 09/22/24 omeprazole 20 mg capsule,delayed 20 mg PO Q24H 07/22/23 09/22/24 release tamsulosin 0.4 mg capsule 0.4 mg PO DAILY 07/22/23 09/22/24 sildenafil 100 mg tablet 100 mg PO Q24H PRN erectile 02/17/24 09/22/24 dysfunction Previous Rx's ?Medication ?Instructions ?Recorded albuterol sulfate 90 mcg/actuation 2 inh inhalation Q6H PRN shortness 12/25/23 aerosol inhaler (Ventolin HFA) of breath or wheezing #6.7 grams furosemide 40 mg tablet (Lasix) 40 mg PO DAILY #30 tabs 12/25/23 ipratropium 0.5 mg-albuterol 3 mg 3 ml inhalation Q6H PRN shortness 02/02/24 (2.5 mg base)/3 mL nebulization of breath #90 mL soln Allergies Allergy/AdvReac Type Severity Reaction Status Date / Time codeine Allergy Intermediate Hallucinati Verified 09/22/24 12:12 ng Review of Systems ROS Status of ROS 10 or more systems reviewed and unremarkable except as noted in history and below [facility] Medical History Pneumonia due to COVID-19 virus ?U07.1 - COVID-19 (ICD-10) ?J12.82 - Pneumonia due to coronavirus disease 2019 (ICD-10) COVID-19 ?U07.1 - COVID-19 (ICD-10) Acute on chronic congestive heart failure ?I50.9 - Heart failure, unspecified (ICD-10) COPD exacerbation ?J44.1 - Chronic obstructive pulmonary disease with (acute) exacerbation (ICD-10) Congestive heart failure ?I50.9 - Heart failure, unspecified (ICD-10) BPH (benign prostatic hyperplasia) ?N40.0 - Benign prostatic hyperplasia without lower urinary tract symptoms (ICD-10) CAD (coronary artery disease) ?I25.10 - Atherosclerotic heart disease of [place] coronary artery without angina pectoris (ICD-10) GERD (gastroesophageal reflux disease) ?K21.9 - Gastro-esophageal reflux disease without esophagitis (ICD-10) Hypertension ?I10 - Essential (primary) hypertension (ICD-10) COPD (chronic obstructive pulmonary disease) ?J44.9 - Chronic obstructive pulmonary disease, unspecified (ICD-10) Bronchitis ?J40 - Bronchitis, not specified as acute or chronic (ICD-10) Emphysema of lung ?J43.9 - Emphysema, unspecified (ICD-10) Heart attack ?I21.9 - Acute myocardial infarction, unspecified (ICD-10) COPD exacerbation ?J44.1 - Chronic obstructive pulmonary disease with (acute) exacerbation (ICD-10) COVID-19 ?U07.1 - COVID-19 (ICD-10) Surgical History H/O sinus surgery ?Z98.890 - Other specified postprocedural states (ICD-10) H/O shoulder surgery ?Z98.890 - Other specified postprocedural states (ICD-10) H/O heart artery stent ?Z95.5 - Presence of coronary angioplasty implant and graft (ICD-10) Family History Aunt Family history of cancer Mother Family history of diabetes mellitus Brother Family history of hypertension Father Family history of hypertension Social History Within the past year, how often did you have a drink containing alcohol: never Score interpretation: A score less than 4 is consistent with normal alcohol consumption. 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 Known occupational exposures/hazards: No Highest level of school completed/degree received: high school graduate Are you now , , , , never or living with a partner: In a typical week, how many times do you talk on the telephone with family, friends, or neighbors: 3 or more times per week How often do you get together with friends or relatives: 3 or more times per week How often do you attend jehovah's witness or druze services: never Little interest or pleasure in doing things: not at all Feeling down, depressed, or hopeless: not at all Feel stressed/tense/nervous/anxious/difficulty sleeping: not at all Do you think of yourself as: straight/heterosexual Gender Identity: male Exam Narrative Exam Narrative: Nurses notes and vital signs reviewed and patient is not hypoxic. General: Well-appearing and in no apparent distress. Skin: Warm, dry, no pallor noted. No rash. Head: Normocephalic, atraumatic. Neck: Supple, non-tender. Eye: Pupils are equal, round and EOMI. No scleral icterus. Ears, Nose, Mouth, and Throat: TM are clear, no nasal mucosal hypertrophy. Oral mucosa is moist, no posterior oropharynx erythema, uvula is mid-line Cardiovascular: Regular Rate and Rhythm without murmur, gallop or rub. Respiratory: Mild crackles heard in both lung bases, distant breathing sounds bilaterally at the upper lung [place] Back: No midline thoracic or lumbar vertebral tenderness. No CVA tenderness Musculoskeletal: normal ROM, no calf or popliteal tenderness, 1+ pitting edema bilaterally GI: Abdomen is soft, non-distended. Normal bowel sounds. No masses appreciated. No tenderness to palpation. No rebound, guarding, or rigidity noted. Neurological: A&O x4. No cranial nerve dysfunction observed. No truncal ataxia. Moves all extremities. Sensation intact. Psychiatric: Cooperative and interactive. Normal mood and affect. Constitutional Vital Signs, click to edit/add: Last Vital Signs Temp 98.7 F 09/22/24 12:12 Pulse 67 09/22/24 15:24 Resp 24 H 09/22/24 15:24 BP 143/85 H 09/22/24 15:24 Pulse Ox 97 09/22/24 15:24 O2 Del Method Room Air 09/22/24 14:24 Course Vital Signs Vital signs: Vital Signs Temperature 98.7 F 09/22/24 12:12 Pulse Rate 70 09/22/24 12:12 Respiratory Rate 118 H 09/22/24 12:12 Blood Pressure 143/69 H 09/22/24 12:12 Pulse Oximetry 94 L 09/22/24 12:12 Oxygen Delivery Method Room Air 09/22/24 12:12 Temperature 98.7 F 09/22/24 12:12 Pulse Rate 67 09/22/24 15:24 Respiratory Rate 24 H 09/22/24 15:24 Blood Pressure 143/85 H 09/22/24 15:24 Pulse Oximetry 97 09/22/24 15:24 Oxygen Delivery Method Room Air 09/22/24 14:24 MDM - SOB/Dyspnea MDM Narrative Medical decision making narrative: The patient EKG was showing sinus rhythm with a heart rate of [address] elevation or depression Chest x-ray shows a question of a infiltrate in the left lung although the patient presentation is not likely due to infection as he does not have any white blood cell in his blood workup he does not also have any elevated BNP or elevated troponin The patient presentation is mostly likely to CHF mild exacerbation especially with his recent evaluation and treated with doxycycline for infection I did contact the patient primary care Dr Ashford and he confirmed that the patient have a CHF with ejection fraction of 30% although there was no known reason for why the Lasix was stopped and with the patient current blood workup showing no acute kidney injury or any other reason for us not to give him Lasix the patient will be started on Lasix Patient will follow-up with the primary care within a week he was instructed that in case of no improvement of the symptoms within 24 hours he is to come back to the ER The patient is to follow up with primary care physician in next 2-3 days or to return to the emergency department should any of the signs or symptoms worsen or new symptoms develop. The patient agrees with the following Diagnosis and Treatment plan and the patient will be discharged home. Lab Data Labs: Lab Results 09/22/24 Range/Units 12:40 WBC 9.4 (4.0-11.0) 10^3/uL RBC 4.57 L (4.70-6.10) 10^6/uL Hgb 13.2 L (14.0-18.0) g/dL Hct 38.6 L (42.0-54.0) % MCV 84.5 (80.0-94.0) fL MCH 28.9 (25.9-34.0) pg MCHC 34.2 (29.9-35.2) g/dL RDW 14.5 (11.0-15.0) % Plt Count 197 (150-450) 10^3/uL MPV 9.9 (9.5-13.5) fL Neut % (Auto) 66.4 (43.0-75.0) % Lymph % (Auto) 11.8 L (20.5-60.0) % [place] % (Auto) 11.8 (1.7-12.0) % Eos % (Auto) 8.9 H (0.9-7.0) % Baso % (Auto) 0.9 (0.2-2.0) % Neut # (Auto) 6.2 (1.4-6.5) 10^3/uL Lymph # (Auto) 1.1 L (1.2-3.8) 10^3/uL [place] # (Auto) 1.1 H (0.3-0.8) 10^3/uL Eos # (Auto) 0.8 H (0.0-0.7) 10^3/uL Baso # (Auto) 0.1 (0.0-0.1) 10^3/uL Abs Immat Gran (auto) 0.02 (0.00-0.03) 10^3/uL Imm/Tot Granulo (auto) 0.2 (0.0-0.5) % Sodium 135 L (136-145) mmol/L Potassium 4.3 (3.5-5.1) mmol/L Chloride 101 (98-107) mmol/L Carbon Dioxide 24.0 (21.0-32.0) mmol/L Anion Gap 14.3 BUN 11.0 (7.0-18.0) mg/dL Creatinine 1.06 (0.70-1.30) mg/dL Est GFR ( Amer) >60 (>=60 mL/min/1.73m^2) Est GFR (Non-Af Amer) >60 (>=60 mL/min/1.73m^2) BUN/Creatinine Ratio 10.4 Glucose 125 H (74-106) mg/dL Calcium 8.6 (8.5-10.1) mg/dL Total Bilirubin 0.6 (0.2-1.0) mg/dL AST 26 (15-37) U/L ALT 32 (16-63) U/L Alkaline Phosphatase 74 (46-116) U/L Troponin I High Sens 10.6 (4.0-76.1) pg/mL NT-Pro-B Natriuret Pep 361.0 (<=900.0) pg/mL Total Protein 6.3 L (6.4-8.2) g/dL Albumin 3.0 L (3.4-5.0) g/dL Globulin 3.3 g/dL Albumin/Globulin Ratio 0.9 Influenza Type A Ag Negative Influenza Type B Ag Negative SARS-CoV-2 Ag (CV2AG) Negative (NEGATIVE) Discharge Plan Discharge Chief Complaint: Shortness of Breath/Dyspnea Clinical Impression: Congestive heart failure Patient Disposition: Home, Self-Care Time of Disposition Decision: 15:17 Condition: Good Prescriptions / Home Meds: Continued furosemide [Lasix] 40 mg tablet 40 mg PO DAILY Qty: 30 0RF No Action albuterol sulfate [Ventolin HFA] 90 mcg/actuation HFA aerosol inhaler 2 inh inhalation Q6H PRN (Reason: shortness of breath or wheezing) Qty: 6.7 0RF tamsulosin 0.4 mg capsule 0.4 mg PO DAILY carvedilol 6.25 mg tablet 6.25 mg PO Q12H losartan 50 mg tablet 50 mg PO DAILY omeprazole 20 mg capsule,delayed release(DR/EC) 20 mg PO Q24H ipratropium-albuterol 0.5 mg-3 mg(2.5 mg base)/3 mL solution for nebulization 3 ml inhalation Q6H PRN (Reason: shortness of breath) Qty: 90 0RF sildenafil 100 mg tablet 100 mg PO Q24H PRN (Reason: erectile dysfunction) Print Language: Vietnamese Instructions: Heart Failure (DC) Referrals: SERA FLOWER [Primary Care Provider] - 1 week Discharge Date/Time: 09/22/24 15:36
== END 2024-09-22 15:36 | disposition home or self-care (01) ==
PROVIDERS: Emergency Provider Emergency Medicine; PCP Internal Medicine
DX: I50.9 Heart failure, unspecified (principal); R06.02 Shortness of breath; Z95.5 Presence of coronary angioplasty implant and graft; Z87.891 Personal history of nicotine dependence; J44.9 Chronic obstructive pulmonary disease, unspecified
CPT/HCPCS: 36415; 71045; 80053; 83880; 84484; 85025; 87804; 87811; 93005; 94640; 96374; 96375; 99285; J1938; J2919

== ENCOUNTER 2024-09-25 10:42 | Emergency (ER) | payer MEDICARE, OTHER, SELFPAY ==
[2024-09-25] VITALS (22 sets, daily range): BP systolic 126–149; BP diastolic 62–102; PULSE 65–90; TEMP 36.4; O2SAT 91–99; BMI 36.6
--- NOTE | 2024-09-25 11:41 | ED.GENADUL1 ---
HPI HPI - General Adult General Chief complaint: Upper Respiratory Infection Stated complaint: sob Time Seen by Provider: 09/25/24 11:35 Source: patient Mode of arrival: walk-in Limitations: no limitations History of Present Illness HPI narrative: This 69-year-old male presents with a chief complaint of shortness of breath and cough since yesterday. Denies chills or bodyaches or fever. He has a history of COPD, congestive heart failure and has 5 stents in his heart. He uses a variety of inhaled bronchodilators but has not used any today. He uses inhaled albuterol via nebulizer and albuterol via metered-dose inhaler. He does have other inhalers he states he uses inhalers only infrequently. He gets his care at the [place] [facility] but is also currently switching to follow-up with Dr. Klein with whom he has an appointment next week. Related Data Home Medications ?Medication ?Instructions ?Recorded ?Confirmed carvedilol 6.25 mg tablet 6.25 mg PO Q12H 07/22/23 09/22/24 losartan 50 mg tablet 50 mg PO DAILY 07/22/23 09/22/24 omeprazole 20 mg capsule,delayed 20 mg PO Q24H 07/22/23 09/22/24 release tamsulosin 0.4 mg capsule 0.4 mg PO DAILY 07/22/23 09/22/24 sildenafil 100 mg tablet 100 mg PO Q24H PRN erectile 02/17/24 09/22/24 dysfunction Previous Rx's ?Medication ?Instructions ?Recorded albuterol sulfate 90 mcg/actuation 2 inh inhalation Q6H PRN shortness 12/25/23 aerosol inhaler (Ventolin HFA) of breath or wheezing #6.7 grams furosemide 40 mg tablet (Lasix) 40 mg PO DAILY #30 tabs 12/25/23 ipratropium 0.5 mg-albuterol 3 mg 3 ml inhalation Q6H PRN shortness 02/02/24 (2.5 mg base)/3 mL nebulization of breath #90 mL soln doxycycline hyclate 100 mg capsule 100 mg PO BID 10 days #20 caps 09/25/24 prednisone 20 mg tablet 40 mg (2 x 20 mg) PO DAILY 5 days 09/25/24 #10 tabs Allergies Allergy/AdvReac Type Severity Reaction Status Date / Time codeine Allergy Intermediate Hallucinati Verified 09/22/24 12:12 ng Opioid HPI Opioid Management Most Recent Opioid Data: Last Pain Scale 3 02/16/24, 09:49 Last ORT Total Score 0 02/17/24, 13:11 Last ORT Risk Category Low Risk 02/17/24, 13:11 Review of Systems ROS Status of ROS 10 or more systems reviewed and unremarkable except as noted in history and below [facility] Medical History Pneumonia due to COVID-19 virus ?U07.1 - COVID-19 (ICD-10) ?J12.82 - Pneumonia due to coronavirus disease 2019 (ICD-10) COVID-19 ?U07.1 - COVID-19 (ICD-10) Acute on chronic congestive heart failure ?I50.9 - Heart failure, unspecified (ICD-10) COPD exacerbation ?J44.1 - Chronic obstructive pulmonary disease with (acute) exacerbation (ICD-10) Congestive heart failure ?I50.9 - Heart failure, unspecified (ICD-10) BPH (benign prostatic hyperplasia) ?N40.0 - Benign prostatic hyperplasia without lower urinary tract symptoms (ICD-10) CAD (coronary artery disease) ?I25.10 - Atherosclerotic heart disease of [place] coronary artery without angina pectoris (ICD-10) GERD (gastroesophageal reflux disease) ?K21.9 - Gastro-esophageal reflux disease without esophagitis (ICD-10) Hypertension ?I10 - Essential (primary) hypertension (ICD-10) COPD (chronic obstructive pulmonary disease) ?J44.9 - Chronic obstructive pulmonary disease, unspecified (ICD-10) Bronchitis ?J40 - Bronchitis, not specified as acute or chronic (ICD-10) Emphysema of lung ?J43.9 - Emphysema, unspecified (ICD-10) Heart attack ?I21.9 - Acute myocardial infarction, unspecified (ICD-10) COPD exacerbation ?J44.1 - Chronic obstructive pulmonary disease with (acute) exacerbation (ICD-10) COVID-19 ?U07.1 - COVID-19 (ICD-10) Surgical History H/O sinus surgery ?Z98.890 - Other specified postprocedural states (ICD-10) H/O shoulder surgery ?Z98.890 - Other specified postprocedural states (ICD-10) H/O heart artery stent ?Z95.5 - Presence of coronary angioplasty implant and graft (ICD-10) Family History Aunt Family history of cancer Mother Family history of diabetes mellitus Brother Family history of hypertension Father Family history of hypertension Social History Within the past year, how often did you have a drink containing alcohol: never Score interpretation: A score less than 4 is consistent with normal alcohol consumption. 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 Known occupational exposures/hazards: No Highest level of school completed/degree received: high school graduate Are you now , , , , never or living with a partner: In a typical week, how many times do you talk on the telephone with family, friends, or neighbors: 3 or more times per week How often do you get together with friends or relatives: 3 or more times per week How often do you attend jehovah's witness or pentecostal services: never Little interest or pleasure in doing things: not at all Feeling down, depressed, or hopeless: not at all Feel stressed/tense/nervous/anxious/difficulty sleeping: not at all Do you think of yourself as: straight/heterosexual Gender Identity: male Exam Narrative Exam Narrative: Patient appears in distress with frequent coughing and conversational dyspnea. He is tachypneic. Oxygen saturation is 94% on room air. He is mentating normally there is no facial asymmetry. He moves all extremities actively. HEENT exam is normal to inspection. Neck is supple. Auscultation of the lungs reveals coarse rales and rhonchi in all lung zones. Heart has regular rate and rhythm. Abdomen is protuberant with fluid wave and is soft. There is no tenderness and bowel sounds are hypoactive. Lower extremities are warm and dry. He does not have calf tenderness or pedal edema or unilateral leg swelling. Constitutional Vital Signs, click to edit/add: Last Vital Signs Temp 97.6 F 09/25/24 10:54 Pulse 79 09/25/24 14:10 Resp 24 H 09/25/24 14:10 BP 149/102 H 09/25/24 14:01 Pulse Ox 94 L 09/25/24 14:10 O2 Del Method Room Air 09/25/24 12:03 Course Vital Signs Vital signs: Vital Signs Temperature 97.6 F 09/25/24 10:54 Pulse Rate 72 09/25/24 10:54 Respiratory Rate 18 09/25/24 10:54 Blood Pressure 126/62 09/25/24 10:54 Pulse Oximetry 96 09/25/24 10:54 Oxygen Delivery Method Room Air 09/25/24 10:54 Temperature 97.6 F 09/25/24 10:54 Pulse Rate 79 09/25/24 14:10 Respiratory Rate 24 H 09/25/24 14:10 Blood Pressure 149/102 H 09/25/24 14:01 Pulse Oximetry 94 L 09/25/24 14:10 Oxygen Delivery Method Room Air 09/25/24 12:03 Medical Decision Making MDM Narrative Medical decision making narrative: The twelve-lead EKG is interpreted by me and shows sinus rhythm with a rate of 70 bpm. PVCs are noted. No acute ST elevation is present. There is evidence of old inferior wall myocardial infarction with likely posterior extension. He has LVH by voltage criteria. Chest x-ray does not show acute disease. Patient was treated with a DuoNeb and then albuterol aerosol treatment after which she feels much better. He was also bolused with IV Solu-Medrol. Chest x-ray did not show any acute process. Upon discharge he is placed on prednisone and doxycycline. He is advised to use his inhalers and nebulizers regularly and then follow-up with his physician next week as scheduled. He is to return for worsening symptoms. Lab Data Labs: Lab Results 09/25/24 Range/Units 12:00 WBC 8.1 (4.0-11.0) 10^3/uL RBC 4.60 L (4.70-6.10) 10^6/uL Hgb 13.2 L (14.0-18.0) g/dL Hct 38.3 L (42.0-54.0) % MCV 83.3 (80.0-94.0) fL MCH 28.7 (25.9-34.0) pg MCHC 34.5 (29.9-35.2) g/dL RDW 14.5 (11.0-15.0) % Plt Count 219 (150-450) 10^3/uL MPV 10.5 (9.5-13.5) fL Neut % (Auto) 62.0 (43.0-75.0) % Lymph % (Auto) 12.7 L (20.5-60.0) % [place] % (Auto) 12.2 H (1.7-12.0) % Eos % (Auto) 12.2 H (0.9-7.0) % Baso % (Auto) 0.7 (0.2-2.0) % Neut # (Auto) 5.1 (1.4-6.5) 10^3/uL Lymph # (Auto) 1.0 L (1.2-3.8) 10^3/uL [place] # (Auto) 1.0 H (0.3-0.8) 10^3/uL Eos # (Auto) 1.0 H (0.0-0.7) 10^3/uL Baso # (Auto) 0.1 (0.0-0.1) 10^3/uL Abs Immat Gran (auto) 0.02 (0.00-0.03) 10^3/uL Imm/Tot Granulo (auto) 0.2 (0.0-0.5) % D-Dimer 0.48 (<=0.59) mg/L FEU Sodium 136 (136-145) mmol/L Potassium 4.3 (3.5-5.1) mmol/L Chloride 101 (98-107) mmol/L Carbon Dioxide 27.2 (21.0-32.0) mmol/L Anion Gap 12.1 BUN 17.0 (7.0-18.0) mg/dL Creatinine 1.08 (0.70-1.30) mg/dL Est GFR ( Amer) >60 (>=60 mL/min/1.73m^2) Est GFR (Non-Af Amer) >60 (>=60 mL/min/1.73m^2) BUN/Creatinine Ratio 15.7 Glucose 100 (74-106) mg/dL Calcium 8.7 (8.5-10.1) mg/dL Magnesium 1.9 (1.8-2.4) mg/dL Total Bilirubin 0.4 (0.2-1.0) mg/dL Direct Bilirubin 0.1 (0.0-0.2) mg/dL AST 25 (15-37) U/L ALT 34 (16-63) U/L Alkaline Phosphatase 71 (46-116) U/L Troponin I High Sens 14.3 (4.0-76.1) pg/mL Total Protein 6.3 L (6.4-8.2) g/dL Albumin 3.1 L (3.4-5.0) g/dL Globulin 3.2 g/dL Albumin/Globulin Ratio 1.0 Lipase 32.0 (16.0-77.0) U/L Discharge Plan Discharge Chief Complaint: Upper Respiratory Infection Clinical Impression: COPD exacerbation Patient Disposition: Home, Self-Care Time of Disposition Decision: 14:15 Condition: Fair Mode of Transportation: Private Vehicle Prescriptions / Home Meds: New doxycycline hyclate 100 mg capsule 100 mg PO BID 10 Days Qty: 20 0RF prednisone 20 mg tablet 40 mg PO DAILY 5 Days Qty: 10 0RF No Action furosemide [Lasix] 40 mg tablet 40 mg PO DAILY Qty: 30 0RF albuterol sulfate [Ventolin HFA] 90 mcg/actuation HFA aerosol inhaler 2 inh inhalation Q6H PRN (Reason: shortness of breath or wheezing) Qty: 6.7 0RF tamsulosin 0.4 mg capsule 0.4 mg PO DAILY carvedilol 6.25 mg tablet 6.25 mg PO Q12H losartan 50 mg tablet 50 mg PO DAILY omeprazole 20 mg capsule,delayed release(DR/EC) 20 mg PO Q24H ipratropium-albuterol 0.5 mg-3 mg(2.5 mg base)/3 mL solution for nebulization 3 ml inhalation Q6H PRN (Reason: shortness of breath) Qty: 90 0RF sildenafil 100 mg tablet 100 mg PO Q24H PRN (Reason: erectile dysfunction) Print Language: Hebrew Instructions: COPD (Chronic Obstructive Pulmonary Disease) (ED) Additional Instructions: Follow-up with your physician early next week. Return for worsening symptoms. Referrals: Torres Klein MD [Physician, Family Practice] - 1 week SERA FLOWER [Primary Care Provider, Internal Medicine] - 1 week Discharge Date/Time: 09/25/24 14:38
[2024-09-25] MEDS: METHYLPREDNISOLONE SOD SUCC PF 125 MG/2 ML VIAL IVP (12:00)
[2024-09-25] MEDS: ALBUTEROL SULFATE 2.5 MG/3 ML VIAL NEB IH (12:01)
[2024-09-25] MEDS: IPRATROPIUM/ALBUTEROL SULFATE 3 ML AMPUL.NEB IH (12:02)
[2024-09-25 12:22] LABS: Basophils Absolute Auto 0.1 10^3/uL (0.0-0.1); Basophils Percent Auto 0.7 % (0.2-2.0); Eosinophils Percent Auto 12.2 % (0.9-7.0); Hematocrit 38.3 % (42.0-54.0); Hemoglobin 13.2 g/dL (14.0-18.0); Immature Granulocytes Abs Auto 0.02 10^3/uL (0.00-0.03); Immature Granulocytes Pct Auto 0.2 % (0.0-0.5); Lymphocytes Percent Auto 12.7 % (20.5-60.0); Mean Corpuscular HGB Conc 34.5 g/dL (29.9-35.2); Mean Corpuscular Hemoglobin 28.7 pg (25.9-34.0); Mean Corpuscular Volume 83.3 fL (80.0-94.0); Mean Platelet Volume 10.5 fL (9.5-13.5); Monocytes Percent Auto 12.2 % (1.7-12.0); Neutrophils Absolute Auto 5.1 10^3/uL (1.4-6.5); Platelet Count 219 10^3/uL (150-450); Red Cell Distribution Width 14.5 % (11.0-15.0); White Blood Count 8.1 10^3/uL (4.0-11.0)
[2024-09-25 12:38] LABS: D Dimer 0.48 mg/L FEU (<=0.59)
[2024-09-25 12:39] LABS: Alanine Aminotransferase 34 U/L (16-63); Albumin Level 3.1 g/dL (3.4-5.0); Alkaline Phosphatase 71 U/L (46-116); Aspartate Amino Transferase 25 U/L (15-37); BUN Creatinine Ratio 15.7; Bilirubin Direct 0.1 mg/dL (0.0-0.2); Bilirubin Total 0.4 mg/dL (0.2-1.0); Calcium 8.7 mg/dL (8.5-10.1); Carbon Dioxide 27.2 mmol/L (21.0-32.0); Estimated GFR (African America >60 (>=60 mL/min/1.73m^2); Estimated GFR (Non-African Ame >60 (>=60 mL/min/1.73m^2); Globulin 3.2 g/dL; Glucose 100 mg/dL (74-106); Magnesium 1.9 mg/dL (1.8-2.4); Total Protein 6.3 g/dL (6.4-8.2); Troponin I High Sensitivity 14.3 pg/mL (4.0-76.1)
[2024-09-25 12:51] LABS: Anion Gap 12.1; Chloride 101 mmol/L (98-107); Potassium 4.3 mmol/L (3.5-5.1); Sodium 136 mmol/L (136-145)
--- NOTE | 2024-09-25 17:32 | ECG_ITS ---
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 Measurements Intervals [place] Rate: 70 P: 52 SC: 166 QRS: -4 QRSD: 98 T: 50 QT: 398 QTc: 419 Interpretive Statements 1100 Sinus rhythm 1574 with frequent ventricular premature complexes 3613 Cannot rule out inferior myocardial infarction, probably old 5211 Minimal voltage criteria for LVH, may be normal variant 9150 abnormal ECG Compared to ECG 09/22/2024 12:20:49 Ventricular premature complex(es) now present Electronically Signed On 09-25-2024 23:25:27 EDT by MELANY CHEN M.D.
== END 2024-09-25 14:38 | disposition home or self-care (01) ==
PROVIDERS: Emergency Provider Emergency Medicine; PCP Internal Medicine
DX: J44.1 Chronic obstructive pulmonary disease with (acute) exacerbation (principal); R06.02 Shortness of breath; I50.9 Heart failure, unspecified; Z95.5 Presence of coronary angioplasty implant and graft; Z87.891 Personal history of nicotine dependence
CPT/HCPCS: 36415; 71046; 80048; 80076; 83690; 83735; 84484; 85025; 85378; 93005; 94640; 96374; 99284; J2919

== ENCOUNTER 2024-10-03 16:56 | Emergency (ER) | payer MEDICARE, OTHER, SELFPAY ==
[2024-10-03] VITALS (17 sets, daily range): BP systolic 147–151; BP diastolic 80–83; PULSE 72–81; TEMP 36.8; O2SAT 94–99; BMI 35.1
--- OUTSIDE RECORDS SUMMARY | 2024-10-03 17:12 | XMS_ITS | CCD ---
Author Organization [facility] Care Team Providers Care Elementary Education Teacher Name Role Phone Sera Flower Unavailable Unavailable [...] Unavailable Sera Flower MD Primary Care Provider [phone] MD Sera Flower Primary Care Provider DO Jasper Gross Emergency Provider Jasper Gross Admitting Unavailable Jasper Gross Attending Unavailable Sera Flower Primary Care Unavailable Rene Cortez Attending Unavailable Sera Flower Primary Care Unavailable Sera Flower Consulting Unavailable Rene Cortez Admitting Unavailable Sera Flower MD Unavailable Sera Flower MD Primary Care Provider [phone] Indira CAMACHO, Tootie Unavailable Rene Cortez MD Unavailable Indira CAMACHO, Tootie Unavailable Sera Flower Primary Care Physician Unavailab SU Keith Attending Unavailable SU COOK Attending Unavailable ADRIÁNSU GONZALES Attending Unavailable ADRIÁN, SU Esquivel Admitting Unavailable SERA FLOWER Referring Unavailable ADRIÁNSU GONZALES Attending Unavailable Lauri CAMACHO, Orquidea Unavailable RENE CORTEZ Attending Unavailable RENE CORTEZ Referring Unavailable SERA FLOWER Primary Care Unavailable RENE CORTEZ Attending Unavailable RENE CORTEZ Referring Unavailable SERA FLOWER Primary Care Unavailable [facility] Orquidea CAMACHO Unavailable Unavailable John BAPTISTE Attending Unavailable COOK, John Hauser Attending Unavailable OrzechYasemin Attending Unavailable COOKJohn Attending Unavailable COOKJohn Referring Unavailable COOKJohn Admitting Unavailable ADRIÁN, NUBIA Esquivel Admitting Unavailab moisés COOK, NUBIA Esquivel Attending Unavailab le John BAPTISTE Attending Unavailable COOK, John P Referring Unavailable COOK, John Hauser Attending Unavailable Rene Cortez MD Unavailable Evens Morgan MD Unavailable [phone] John Baptiste MD Unavailable Qi NEWBERRY, Jessica A Unavailable RISALIPETER, SALLY R Attending Unavailable CHING SERA L Referring Unavailable PETMARYBETH MCGRATH Attending Unavailable RISALIPETER, SALLY R Referring Unavailable BENJY ALAS Attending Unavailable RISALITI, SALLY R Attending Unavailable HILL, SERA L Referring Unavailable HILL, SERA L Attending Unavailable HILL, SERA L Referring Unavailable RISALITI, SALLY R Attending Unavailable QI, JESSICA A Attending Unavailable Allergies Allergy Classification Reported Allergen(s) Allergy Type Date of Onset Reaction(s) Facility (20 sources) Codeine; Translations: [codeine] Drug Allergy 6 Vomiting, Unknown, Nausea And Vomiting, Other, Unknown (qualifier value) [facility] (6 sources) Codeine / guaiFENesin; Translations: [CODEINE-GUAIFEN ESIN] Drug Allergy 1 Other: See Comments [facility] (6 sources) guaiFENesin; Translations: [GUAIFENESIN] Drug Allergy 3 Other: See Comments [facility] (1 source) Codeine Drug Allergy 4 [facility] (18 sources) guaiFENesin Drug Allergy 3 Other [facility] Medications Current Medications Medication Drug Class(es) Dates Sig (Normalized) Sig (Original) acetaminophen 325 mg / HYDROcodone bitartrate 5 mg oral tablet (1 source) Opioid Agonist Start: 07-29-2024 take 1 tablet by mouth every hour [place] 325 mg-5 mg oral tablet See Instructions, 1 tab(s), Refill(s) 0, Take 1 hour prior to your procedure, [id number], 172, cm, 06/23/24 15:02:00 EST, Height/Length Dosing, 111.5, kg, 06/23/24 15:02:00 EST, Weight Dosing Start Date: 07/29/24 Status: Ordered acetaminophen 325 mg / traMADol hydrochloride 37.5 mg oral tablet (1 source) Opioid Agonist Start: 07-29-2024 Ultracet 325 mg-37.5 mg Tab See Instructions, 20 tab(s), Refill(s) 0, take 1-2 every 6 hrs prn for pain - following procedure, [id number], 172, cm, 06/23/24 15:02:00 EST, Height/Length Dosing, 111.5, kg, 06/23/24 15:02:00 EST, Weight Dosing Start Date: 07/29/24 Status: Ordered Albuterol (20 sources) beta2-Adrenergic Agonist Start: 04-16-2024 [...] / zinc oxide 40 mg oral tablet (18 sources) Vitamin C take 1 tablet by [...] 26, 2018 12:00am July 28, 2019 6:51am benoxinate hydrochloride 4 mg/ml / fluorescein sodium 2.5 mg/ml ophthalmic solution (1 source) Diagnostic Dye Start: 05-01-2022 End: 05-01-2022 fluorescein-benoxinate 0.25-0.4 % 1 Drop (FLURESS) benzonatate 100 mg oral capsule (14 sources) Non-narcotic Antitussive Start: 02-21-2024 End: 07-02-2024 take 1 capsule by mouth three times daily as needed for cough benzonatate (Tessalon) 100 MG capsule Indications: Acute cough Take 1 capsule (100 mg) by mouth 3 (three) times a day as needed for cough Do not crush or chew. 30 capsule 1 02/21/2024 07/02/2024 Discontinued Start: 06-14-2023 take 200 mg by mouth three times daily Benzonatate Active 200 MG PO Three times daily June 14, 2023 12:00am Start: 01-17-2022 take 1 capsule by mo [facility] three times daily for cough benzonatate [...] / glycopyrrolate 0.009 mg/actuat metered dose inhaler (7 sources) Corticosteroid, beta2-Adrenergic Agonist Start: 05-07-20 End: 07-02-19 take 2 puff(s) by mouth twice daily Breztri Aerosphere 160-9-4.8 MCG/ACT aerosol INHALE 2 PUFFS BY MOUTH 2 TIMES A DAY, RINSE MOUTH AFTER USE 05/07/2024 07/02/2024 Discontinued (Therapy completed) Start: 09-05-2023 End: 02-27-2024 Breztri Aerosphere 160-9-4.8 MCG/ACT aerosol 09/05/2023 02/27/2024 Discontinued carvedilol 6.25 mg oral tablet (20 sources) alpha-Adrenergic Paras, beta-Adrenergic Paras Start: 06-27-2023 End: 12-05-2024 take 1 tablet by mouth in the morning carvedilol (Coreg) 6.25 MG tablet Indications: Essential hypertension (CMS/HCC) Take 1 tablet (6.25 mg) by mouth in the morning and 1 tablet (6.25 mg) in the evening. Take with meals. 180 tablet 3 03/24/2024 Active Start: 04-25-2021 carvedilol (CO REG) 6.25 [...] mo rning cholecalciferol (Vitamin D-3) 50 MCG (1999 UT) tablet Take 50 mcg by mouth in the morning. Active ciprofloxacin 500 mg oral tablet (8 sources) Quinolone Antimicrobial Start: 04-28-2024 ciprofloxacin 500 mg Tab See Instructions, Start 3 days prior to procedure - twice a day for 7 days, # 14 tab(s), Refills(s) 0, Pharmacy: [id number], 172, cm, 06/23/24 15:02:00 EST, Height/Length Dosing, 111.5, kg, 06/23/24 15:02:00 EST, Weight Dosing Start Date: 07/29/24 Status: Ordered Start: 04-16-2024 End: 04-30-2024 take 1 tablet by mouth every twelve hours Cipro 500 mg Tab 500 mg = 1 tab(s), Oral, q12hr, X 14 day(s), # 28 tab(s), Refills(s) 0, Pharmacy: [id number], 172, cm, 04/16/24 9:51:00 EST, Height/Length Dosing, 108.1, kg, 04/16/24 9:51:00 EST, Weight Dosing Start Date: 04/16/24 Stop Date: 04/30/24 Status: Ordered diazePAM 10 mg oral tablet (1 source) Benzodiazepine Start: 07-29-2024 Valium 10 mg Tab See Instructions, Take 1 hr prior to procedure, # 1 tab(s), Refills(s) 0, Pharmacy: [id number], 172, cm, 06/23/24 15:02:00 EST, Height/Length Dosing, 111.5, kg, 06/23/24 15:02:00 EST, Weight Dosing Start Date: 07/29/24 Status: Ordered doxycycline hyclate 100 mg oral tablet (6 sources) Tetracycline-class Drug Start: 06-14-2023 take 100 mg by mouth twice daily Doxycycline Hyclate Active 100 MG PO Twice daily 03 01June 14, 2023 12:00am Start: 01-17-2022 doxycycline hy clate (VIBRAMYCIN) 100 mg capsule Fish Oils (20 sources) take 1 capsule by mo ut once daily omega-3 (fish oil) 1200 MG [...] propionate 0.05 mg/actuat metered dose nasal spray (16 sources) Corticosteroid Start: 07-25-2023 take 2 spray(s) nasal route once daily fluticasone (Flonase) 50 MCG/ACT nasal spray Administer 2 sprays into each nostril Daily 07/25/2023 Active 30 actuat fluticasone furoate 0.1 mg/actuat / umeclidinium 0.0625 mg/actuat / vilanterol 0.025 mg/actuat dry powder inhaler (16 sources) Anticholinergic, Corticosteroid, beta2-Adrenergic Agonist Start: 08-04-2024 take 1 puff(s) by inhalation once daily Fluticasone-Umec lidin-Vilant (Trelegy Ellipta) 100-62.5-25 MCG/ACT aerosol powder Indications: Chronic obstructive pulmonary disease, unspecified COPD type (CMS/HCC) Inhale 1 puff Daily 1 each 11 08/04/2024 Active Start: 07-25-2023 take 1 puff(s) by inhalation once daily Yqdagfmlics-Awehzrgtc-Ivbwgn (Trelegy Ellipta) 100-62.5-25 MCG/ACT aerosol powder Inhale 1 puff 1 (one) time each day 07/25/2023 Active furosemide 40 mg oral tablet (14 sources) Loop Diuretic Start: 01-23-2024 End: 07-02-2024 take 1 tablet by mouth once daily furosemide (Lasix) 40 MG tablet Indications: Essential hypertension (CMS/HCC) Take 1 tablet (40 mg) by mouth Daily 90 tablet 2 01/23/2024 07/02/2024 Discontinued (Therapy completed) hydroCHLOROthiazide 25 mg oral tablet (12 sources) Thiazide Diuretic Start: 10-11-2020 hydroCHLOROthiazide (HYDRODIURIL, ESIDRIX) 25 mg tablet Take by mouth q 24 HR. 0 10/11/2020 Active Start: 04-26-2018 take 1 tablet by swetha th once daily hydroCHLOROthiazide (HYDRODiuril) 25 mg tablet Take 1 tablet (25 mg) by mouth once daily. 10/11/2020 Active Comment on above: Take by mouth q 24 H R. hydrocortisone 25 mg/ml topical cream (4 sources) Corticosteroid Start: 2024 hydrocortisone 2.5 % cream Indications: Erythema intertrigo Apply thin layer to affected areas on groin up once or twice daily prn itching. Hold if not itchy. 28 g 07/17/2024 Active iv contrast (will be provided with radiology test) (4 sources) Start: 2022 End: 2022 inject 1 dose intravenously once iv contrast [...] 12:00am magnesium oxide 250 mg oral tablet (20 sources) take 1 tablet by mouth in the morning magnesium oxide (Mag-Ox) 250 MG tablet Take 250 mg by mouth in the morning. Active Multivitamin preparation (5 sources) Start: 07-28-2019 [...] SL tablet Indications: Coronary artery disease involving [place] coronary artery of [place] heart without angina pectoris Place 1 tablet (0.4 mg) under the tongue every 5 minutes if needed for chest pain. May repeat dose every 5 minutes for up to 3 doses total. 25 tablet 11 05/15/2024 06/14/2024 Active Comment on above: Dissolve under the t ongue. omega-3 fatty acids-fish oil (One-Per-Day [place]-3) 684-1,200 mg capsule (3 sources) omega-3 fatty acids-fish oil (One-Per-Day [place]-3) 684-1,200 mg capsule Take as directed Active omega-3 fatty ac ids-fish oil (One-Per-Day [place]-3) 684-1,200 mg capsule Take as directed 0 Active omeprazole 20 mg delayed release oral capsule (20 sources) Proton Pump Inhibitor Start: 03-24-2024 take 1 capsule by mouth once daily omeprazole (PriLOSEC) [address] capsule Indications: Gastroesophageal reflux disease without esophagitis Take 1 capsule (20 mg) by mouth Daily 90 capsule 3 03/24/2024 Active Start: 08-15-2021 End: 03-22-2024 omeprazole (PriLOSEC) [address] capsule Indications: Gastroesophageal reflux disease without esophagitis TAKE 1 CAPSULE DAILY 90 capsule 3 12/06/2023 03/22/2024 Discontinued (Reorder) Start: 04-26-2018 take 20 mg by mouth once daily Omeprazole Active 20 MG PO Daily April 26, 2018 12:00am oxybutynin chloride 5 mg oral tablet (1 source) Cholinergic Muscarinic Antagonist Start: 07-29-2024 take 1 tablet by mouth twice daily oxybutynin 5 mg Tab See Instructions, 1 tab(s) Oral bid after procedure, # 10 tab(s), Refills(s) 0, Pharmacy: [id number], 172, cm, 06/23/24 15:02:00 EST, Height/Length Dosing, 111.5, kg, 06/23/24 15:02:00 EST, Weight Dosing Start Date: 07/29/24 Status: Ordered phenylephrine hydrochloride 25 mg/ml ophthalmic solution (1 source) alpha-1 Adrenergic Agonist Start: 05-01-2022 End: 05-01-2022 PHENYLephrine 2.5 % 1 Drop (AK-DILATE, ATIF-SYNEPHRINE) predniSONE 50 mg oral tablet (9 sources) Start: 06-29-2024 End: 07-05-2024 take 1 tablet by mouth once daily predniSONE (Deltasone) 50 MG tablet Take 50 mg by mouth Daily 06/29/2024 07/05/2024 Active Start: 06-30-2023 take 1 tablet by swetha th three times daily at mealtime, then take [...] daily Prednisone Discontinued 40 MG PO Daily 03 01April 26, 2018 12:00am May 01, 2018 12:01am Start: 09-19-2017 End: 07-28-2019 take 60 mg by mouth once daily at mealtime Prednisone Discontinued 60 MG PO Daily 09 10September 18, 2017 11:00pm July 28, 2019 6:55am administer with food or milk rosuvastatin 40 mg oral capsule (20 sources) HMG-CoA Reductase Inhibitor Start: 04-16-2024 take 40 mg by mouth once daily rosuvastatin 40 mg, Oral, Daily Start Date: 04/16/24 Status: Ordered Start: 10-18-2023 End: 10-17-2024 take 1 tablet by mouth in the morning rosuvastatin (Crestor) 40 MG tablet Take 40 mg by mouth in the morning. 10/18/2023 10/17/2024 Active Start: 07-28-2019 take 20 [...] day(s), # 60 cap(s), Refills(s) 11, Pharmacy: [facility], 172, cm, 04/16/24 9:51:00 EST, Height/Length Dosing, 108.1, kg, 04/16/24 9:51:00 EST, Weight Dosing Start Date: 04/16/24 Stop Date: 04/11/25 Status: Ordered Start: 03-24-2024 take 1 capsule by mo uth once daily tamsulosin (Flomax) 0.4 MG 24 [...] in the morning. 0 Active triamcinolone acetonide 1 mg/ml topical cream (20 sources) Corticosteroid Start: 07-02-2024 End: 07-16-2024 triamcinolone (Kenalog) 0.1 % cream Indications: Rash Apply 1 application topically in the morning and 1 application at noon and 1 application in the evening and 1 application before bedtime. Do all this for 14 days. Avoid face and groin. Apply on back and under arm area. 45 g 1 07/02/2024 07/16/2024 Active take 1 spray(s) nasa l route in the morning triamcinolone (Nasacort Allergy 24HR) 55 MCG/ACT nasal inhaler Administer 1 spray into each nostril in the morning. Active tropicamide 10 mg/ml ophthalmic solution (1 source) Anticholinergic Start: 05-01-2022 End: 05-01-2022 tropicamide 1 % 1 Drop (MYDRIACYL) vitamin b12 1 mg oral capsule (2 sources) Vitamin B12 Start: 07-28-2019 take 1000 ug by mouth once daily Cyanocobalamin (Vitamin B-12) Active 1000 MCG PO Daily July 28, 2019 12:00am vitamin e 180 mg oral capsule (20 sources) Start: 09-04-2016 take 400 [IU] by mouth once daily [...] mouth 1 (one) time each day. Active Zinc Gluconate 3 0 mg tab Take by mouth q 24 HR. 0 Active Comment on above: Take by mouth q 24 H R. Completed/Discontinued Medications Medication Drug Class(es) Dates Sig (Normalized) Sig (Original) azithromycin 250 mg oral tablet (9 sources) Macrolide Antimicrobial Start: 06-29-2024 End: 09-24-2024 azithromycin (Zithromax) 250 MG tablet Take 250 mg by mouth See administration instructions 500 mg today, 250 mg x 4 days 06/29/2024 09/24/2024 Discontinued (Med list cleanup) Start: 06-30-2023 azithromycin ( Zithromax) 250 MG tablet Indications: Acute exacerbation of chronic obstructive pulmonary disease (CMS/HCC) Z-Pack. Take 2 tablets on day 1, and one tablet per day on days 2-5. 6 tablet 0 06/30/2023 Active ezetimibe 10 mg oral tablet (20 sources) Dietary Cholesterol Absorption Inhibitor Start: 08-18-2019 take 1 tablet by mouth once daily ezetimibe (ZETIA) 10 mg tablet Take 1 tablet by mouth once daily. 0 08/18/2019 Active Comment on above: Take 1 tablet by swetha once daily. 120 actuat fluticasone propionate 0.115 [...] mg by inhalation every eight hours Ipratropium [place] Discontinued 0.5 MG INHALATION Q8H April 26, [...] 0 Refills: 0 Ordered: 07-Sep-2022 DO Active nystatin 100 unt/mg topical powder (4 sources) Polyene Antifungal Start: 07-17-2024 End: 09-24-2024 nystatin (Mycostatin) 852094 UNIT/GM powder Indications: Erythema intertrigo Apply to the affected area on groin area, once daily, 30 day supply 60 g 11 07/17/2024 09/24/2024 Discontinued (Med list cleanup) [place] 3 CAPS (2 sources) [place] 3 CAPS MARLEN E DIRECTED. Quantity: 0 [...] Problem Classification Problem Date Documented Date Episodic/Chronic Administrative/social admission (2 sources) Patient encounter status; Translations: [Other specified counseling] 09-24-2024 Episodic Asthma (20 sources) Asthma; Translations: [Unspecified asthma, uncomplicated] Onset: [...] [Coronary atherosclerosis of unspecified type of vessel, [place] or graft] Onset: 01-03-2023 03-23-2023 Chronic Diabetes mellitus without complication (20 sources) Prediabetes; Translations: [Prediabetes] Onset: 09-20-2023 09-20-2023 Episodic Disorders of lipid metabolism (20 sources) Hyperlipidemia; Translations: [Other and unspecified hyperlipidemia] Onset: 01-03-2023 03-23-2023 Chronic Esophageal disorders (20 sources) Gastroesophageal reflux disease; Translations: [Esophageal reflux] Onset: 09-19-2023 09-19-2023 Chronic Essential hypertension (20 sources) Essential hypertension; Translations: [Unspecified essential hypertension] Onset: 01-03-2023 03-23-2023 Chronic Fluid and electrolyte disorders (2 sources) Hyponatremia; Translations: [Hypo-osmolality and hyponatremia] 02-22-2024 Episodic Genitourinary symptoms and ill-defined conditions (6 sources) Retention of urine; Translations: [Retention of urine, unspecified] Onset: 04-16-2024 Episodic Hyperplasia of prostate (20 sources) Benign prostatic hypertrophy without outflow obstruction; Translations: [Benign prostatic hyperplasia without lower urinary tract symptoms] Onset: 03-14-2023 03-14-2023 Chronic Inflammatory conditions of male genital organs (5 sources) Chronic prostatitis; Translations: [Chronic prostatitis] Onset: 04-16-2024 Chronic Malaise and fatigue (2 sources) Asthenia; Translations: [Weakness] 10-15-2020 Episodic Other diseases of kidney and ureters (1 source) Urinary tract obstruction; Translations: [Other obstructive and reflux uropathy] Onset: 08-08-2024 Episodic Other endocrine disorders (20 sources) Testicular hypofunction; Translations: [Testicular hypofunction] Onset: 03-14-2023 03-14-2023 Chronic Other eye disorders (1 source) Tear film insufficiency; Translations: [Dry eye syndrome of bilateral lacrimal glands] Episodic Other eye disorders (1 source) Paralytic strabismus; 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] Episodic Other inflammatory condition of skin (2 sources) Intertrigo; Translations: [Erythema intertrigo] 07-17-2024 Episodic Other lower respiratory disease (1 source) [...] Chronic Other nutritional; endocrine; and metabolic disorders (4 sources) Body mass index 30+ - obesity; [...] nutritional; endocrine; and metabolic disorders (2 sources) Obesity caused by energy imbalance; Translations: [Morbid (severe) obesity due to excess calories] 09-24-2024 Chronic Other screening for suspected conditions (not mental disorders or infectious disease) (20 sources) History of adenomatous polyp of colon; Translations: [Encounter for screening for malignant neoplasm of colon] Onset: 04-16-2024 07-28-2019 Episodic Other skin disorders (4 sources) Skin lesion; Translations: [Disorder of the skin and subcutaneous tissue, unspecified] 07-02-2024 Episodic Other skin disorders (2 sources) Eruption; Translations: [Rash and other nonspecific skin eruption] 07-02-2024 Episodic Other skin disorders (2 sources) Sebaceous cyst of skin; Translations: [Sebaceous cyst] 07-02-2024 Episodic Other skin disorders (2 sources) Epidermoid cyst; Translations: [Epidermal cyst] 07-17-2024 Episodic Other upper respiratory disease (2 sources) Nasal sinus problem; Translations: [Other specified disorders of nose and nasal sinuses] 03-30-2024 Episodic Other upper respiratory infections (18 sources) Chronic sinusitis; Translations: [Chronic sinusitis, unspecified] [...] angioplasty implant and graft] Onset: 02-13-2023 Episodic Mood disorders (16 sources) Mood disorders Onset: 09-20-2023 09-20-2023 Other nervous system disorders (1 source) Clonic hemifacial spasm, right; Translations: [Clonic hemifacial spasm, right] Onset: 08-08-2022 Episodic Other upper respiratory disease (18 sources) Polyp of nasal sinus; Translations: [Other polyp of sinus] Onset: 03-14-2023 03-14-2023 Episodic Screening and history of mental health and substance abuse codes (20 sources) Ex-smoker; Translations: [Personal history of tobacco use] Onset: 02-13-2023 02-13-2023 Episodic Comment on above: QUIT IN 1984; Unclassified (19 sources) Onset: 03-23-2023 Resolved: 08-10-2023 03-23-2023 Unclassified (2 sources) Sebaceous cyst of skin 07-02-2024 Viral infection (20 sources) Disease caused by 2019-nCoV; Translations: [COVID-19] Onset: 03-14-2023 10-15-2020 Episodic Results Test Name Value Interpretation Reference Range Facility Ambulatory Visit Summaryon 0 08-26-2024 Ambulatory Visit Summary Ambulatory Visit Summary DEMARCUS CALDERON :1955 Visit Date:08/26/2024 Ambulatory Visit Instructions Your Diagnosis BPH with obstruction/lower urinary tract symptoms Urinary retention Elevated PSA Your Care Team Attending Physician - John BAPTISTE MD Primary Care Physician - Sera Flower PA-C This Is Your Medications List tamsulosin (tamsulosin 0.4 mg Cap) Contact prescribing physician if questions or concerns albuterol carvedilol (carvedilol 6.25 mg Tab) losartan (losartan 50 mg Tab) omeprazole (omeprazole 20 mg Cap-DR) rosuvastatin Procedures Performed Cystoscopy (06/23/2024), Colonoscope, Hernia repair. Discharge Vitals Heart Rate (Peripheral) 70 Respiratory Rate 16 Blood Pressure 122/78 Height 172 cm Height 68 in Weight 105.8 kg Weight 233.249 lb BMI 35.76 What to do next Scheduled Follow-Up Appointments Sunday 8:00 AM EDT With: John BAPTISTE MD Where: [facility] [address] [place] [address]- You Need to Schedule the Following Appointments Follow Up with John BAPTISTE MD, URL When: Where: [address] [address]- Medications What How Much When Instructions Unchanged tamsulosin (tamsulosin 0.4 mg Cap) 2 Capsules By Mouth Every day Duration: 30 Days Unchanged albuterol Contact prescribing physician if questions or concerns Unchanged carvedilol (carvedilol 6.25 mg Tab) 1 Tablets By Mouth 2 times a day Contact prescribing physician if questions or concerns Unchanged losartan (losartan 50 mg Tab) 1 Tablets By Mouth Every day Contact prescribing physician if questions or concerns Unchanged omeprazole (omeprazole 20 mg Cap-DR) 1 Capsules By Mouth Every day Contact prescribing physician if questions or concerns Unchanged rosuvastatin 40 Milligram By Mouth Every day Contact prescribing physician if questions or concerns Allergies codeine (Unknown) Problems Ongoing - Any problem that you are currently receiving treatment for. BPH with obstruction/lower urinary tract symptoms Chronic prostatitis Chronic systolic congestive heart failure Coronary artery disease involving [place] heart with angina pectoris Elevated PSA GERD without esophagitis Hypertension Ischemic cardiomyopathy Pure hypercholesterolemia Testicular hypofunction Urinary retention Patient Survey You may receive a survey via text or e-mail asking about your office visit. Please share your experience with us by completing your survey. We appreciate your feedback and thank you for choosing us for your care. Education Materials Benign Prostatic Hyperplasia Benign prostatic hyperplasia (BPH) [...] or symptoms? Symptoms of this condition include: ??? Getting up often during the night to urinate. ??? Needing to urinate frequently during the day. ??? Difficulty starting urine flow. ??? Decrease in size and strength of your urine stream. ??? Leaking (dribbling) after urinating. ??? Inability to pass urine. This needs immediate treatment. ??? Inability to completely empty your bladder. ??? Pain when you pass urine. This is more common if there is also an infection. ??? Urinary tract infection (UTI). How is this diagnosed? This condition is diagnosed based on your medical history, a physical exam, and your symptoms. Tests will also be done, such as: ??? A post-void bladder scan. This measures any amount of urine that may remain in your bladder after you finish urinating. ??? A digital rectal exam. In a rectal exam, your health care provider checks your prostate by putting a lubricated, gloved finger into your rectum to feel the back of your prostate gland. This exam detects the size of your gland and any abnormal lumps or growths. ??? An exam (more content not included)... Normal [facility] Urology Office/Clinic Noteon 08-26-2024 Urology Office/Clinic Note Urology Office/Clinic Note Chief Complaint F/u Urolift HPI Staff PO Urolift 08/08/24 Previous DX: BPH with obstruction/LUTS, urinary retention, elevated PSA. *Flomax 0.4 mg bid IPSS: 16 Denies hematuria, still has some burning at tip of penis from procedure but it's getting better. Denies abdominal pain/flank pain PVR: 363 ml History of Present Illness Tests reviewed: UA, op note I have reviewed the previous health record information and history for this patient from Dr. Baptiste. I have reviewed and verified the staff [...] See HPI. Physical Exam Vitals & Measurements HR: 70(Peripheral) RR: 16 BP: 122/78 HT: 68 in HT: 172 cm WT: 233.249 lb WT: 105.8 kg BMI: 35.76 General Appearance: alert, no distress, well nourished, well developed male. Assessment/Plan 1. BPH with obstruction/lower urinary tract symptoms (N40.1: Benign prostatic hyperplasia with lower urinary tract symptoms) S/p Urolift 8 implants 08/08/24. UA neg. IPSS 16 (14 pre-urolift). Taking Flomax 0.4 mg bid. Explained wong curve of sx improvement post urolift. Stream first to improve, urgency/frequency last sx to improve. Follow up 6-8 wks with PVR or sooner if needed. Pt understands and agrees with plan. -Cont Flomax 2. Urinary retention (R33.9: Retention of urine, unspecified) PVR (cc): 04/16/24 - 413 initially, repeat 204 repeat at end of ov after voiding again 04/28/24 - 208 08/08/24 - urolift 08/18/24 - 471 08/26/24 - 363 Hopefully emptying/bladder pressure will improve with time since obstruction has been relieved. 3. Elevated PSA (R97.20: Elevated prostate specific antigen [PSA]) PSA: 07/29/21 - 2.33 09/14/23 - 2.87 02/27/24 - 6.00 & 13.7% 04/25/24 - 2.30 Not addressed today. Will follow over time. Overall the patient tolerated the UroLift procedure well. He is happy to have the catheter out. He is still carrying residual urine of over 350 cc. He was doing this preoperatively. Just earlier today or yesterday he did have a good urinary stream. Hopefully this will become his new norm. He will stay on his alpha blockers at this point we will see him back within a couple months with a repeat PVR. Hopefully symptoms will dissipate over time as currently he is only about 2 weeks out status post UroLift. He agrees with the plan Follow-up With When Contact Information BENNY SHELLEY, John Hauser, URL [address] [place] [id number]- Additional Instructions: 6-8 wks with PVR Patient Education Benign Prostatic Hyperplasia I, Dayanara [place]rell, personally scribed for Dr. Baptiste on 08/26/2024 08:41:13. . Portions of this record may have been created with voice recognition artificial intelligence software, specifically [employer] and or [employer]. Substitutions may have occurred due to the inherent limitations of voice recognition and artificial intelligence software. 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 Chronic prostatitis Chronic systolic congestive heart failure Coronary artery disease involving [place] heart with angina pectoris Elevated PSA GERD without esophagitis Hypertension Ischemic cardiomyopathy Pure hypercholesterolemia Testicular hypofunction Urinary retention Historical No qualifying data Procedure/Surgical History Cystoscopy (06/23/2024), Colonoscope, Hernia repair. Medications albuterol carvedilol 6.25 mg Tab, 6.25 mg= 1 tab(s), Oral, BID losartan 50 mg Tab, 50 mg= 1 [...] Tobacco Use:. Never Smokeless Tobacco Use:. Cigarettes, 08/26/2024 Family History Hyperlipidemia: Father. Hypertension: Father. Immunizations Vaccine Date Status influenza virus vaccine, inactivated 04/16/2019 Recorded pneumococcal 13-valent vaccine 08/16/2018 Recorded influenza virus vaccine, inactivated 08/16/2018 Recorded pneumococcal 23-valent vaccine 05/28/2018 Recorded diphtheria/pertussis, acel/t (more content not included)... Normal [facility] Comment on above: Result Comment: Elec tronically Signed By: John BAPTISTE MD\.br\Date and Time Signed: 08/26/24 08:47 EDT\.br\Electronically Co-Signed By: Dayanara Murrell\.br\Date and Time Co-Signed: 08/26/24 08:41 EDT Ambulatory Visit Summaryon 0 08-18-2024 Ambulatory Visit Summary Ambulatory Visit Summary DEMARCUS CALDERON :1955 Visit Date:08/18/2024 Ambulatory Visit Instructions Your Diagnosis BPH with obstruction/lower urinary tract symptoms Urinary retention Elevated PSA Your Care Team Attending Physician - JOSEPH Peralta APRN, Yasemin Skelton Primary Care Physician - Sera Flower PA-C This Is Your Medications List tamsulosin (tamsulosin 0.4 mg Cap) Contact prescribing physician if questions or concerns albuterol carvedilol (carvedilol 6.25 mg Tab) losartan (losartan 50 mg Tab) omeprazole (omeprazole 20 mg Cap-DR) rosuvastatin Procedures Performed Cystoscopy (06/23/2024), Colonoscope, Hernia repair. Discharge Vitals Heart Rate (Peripheral) 72 Respiratory Rate 16 Blood Pressure 138/72 Height 172 cm Height 68 in Weight 111 kg Weight 244.713 lb BMI 37.52 What to do next Scheduled Follow-Up Appointments Sunday 8:00 AM EDT With: John BAPTISTE MD Where: [facility] [place] [address] [place] [address]- You Need to Schedule the Following Appointments Follow Up with John BAPTISTE MD, URL When: Where: [address] [facility] [address] [place] [address]- Medications What How Much When Instructions Unchanged tamsulosin (tamsulosin 0.4 mg Cap) 2 Capsules By Mouth Every day Duration: 30 Days Unchanged albuterol Contact prescribing physician if questions or concerns Unchanged carvedilol (carvedilol 6.25 mg Tab) 1 Tablets By Mouth 2 times a day Contact prescribing physician if questions or concerns Unchanged losartan (losartan 50 mg Tab) 1 Tablets By Mouth Every day Contact prescribing physician if questions or concerns Unchanged omeprazole (omeprazole 20 mg Cap-DR) 1 Capsules By Mouth Every day Contact prescribing physician if questions or concerns Unchanged rosuvastatin 40 Milligram By Mouth Every day Contact prescribing physician if questions or concerns Allergies codeine (Unknown) Problems Ongoing - Any problem that you are currently receiving treatment for. BPH with obstruction/lower urinary tract symptoms Chronic prostatitis Chronic systolic congestive heart failure Coronary artery disease involving [place] heart with angina pectoris Elevated PSA GERD without esophagitis Hypertension Ischemic cardiomyopathy Pure hypercholesterolemia Testicular hypofunction Urinary retention Patient Survey You may receive a survey via text or e-mail asking about your office visit. Please share your experience with us by completing your survey. We appreciate your feedback and thank you for choosing us for your care. Education Materials Benign Prostatic Hyperplasia Benign prostatic hyperplasia (BPH) [...] or symptoms? Symptoms of this condition include: ??? Getting up often during the night to urinate. ??? Needing to urinate frequently during the day. ??? Difficulty starting urine flow. ??? Decrease in size and strength of your urine stream. ??? Leaking (dribbling) after urinating. ??? Inability to pass urine. This needs immediate treatment. ??? Inability to completely empty your bladder. ??? Pain when you pass urine. This is more common if there is also an infection. ??? Urinary tract infection (UTI). How is this diagnosed? This condition is diagnosed based on your medical history, a physical exam, and your symptoms. Tests will also be done, such as: ??? A post-void bladder scan. This measures any amount of urine that may remain in your bladder after you finish urinating. ??? A digital rectal exam. In a rectal exam, your health care provider checks your prostate by putting a lubricated, gloved finger into your rectum to feel the back of your prostate gland. This exam detects the size of your gland and any abnormal lumps or growths. ??? (more content not included)... Normal [facility] Urology Office/Clinic Noteon 08-18-2024 Urology Office/Clinic Note Urology Office/Clinic Note HPI Staff 69 year old male patient here for dysuria for post op urolift 08/08/24. S/P cysto 06/23/24 Previous Dx: BPH with obstruction/LUTS, urinary retention, elevated PSA. *flomax 0.4 mg bid Urinary frequency, has dysuria (pain and burning) since Sunday08/15/24 PVR: 471ml History of Present Illness Tests reviewed: UA I have reviewed the previous health record information and history for this patient from Dr. Baptiste. I have reviewed and verified the staff [...] See HPI. Physical Exam Vitals & Measurements HR: 72(Peripheral) RR: 16 BP: 138/72 HT: 172 cm HT: 68 in WT: 111 kg WT: 244.713 lb BMI: 37.52 General Appearance: alert, no distress, well nourished, well developed male. Assessment/Plan Demarcus 69 yo male presents here today for dysuria after UroLift 08/08/24. 1. BPH with obstruction/lower urinary tract symptoms (N40.1: Benign prostatic hyperplasia with lower urinary tract symptoms) S/P cysto 06/23/24. S/p UroLift 08/08/24. UA today shows negative for blood and infections. Devonte any gross hematuria. Denies sxs of prostatitis. Currently taking Flomax 0.8 mg QD. Denies SE. Patient reports some some pain and burning with urination since Sunday08/15/24. Patient shares he's urinating about every 2 hours. Dysuria likely secondary to recent procedure. Informed patient this is normal after the the procedure. Advised patient to cont taking the Flomax. Pt verbalized his understanding. -Continue Flomax 0.4 mg daily without dosage changes. see #2 Follow up August 26 2024 or sooner if needed. Pt understands and agrees with plan. 2. Urinary retention (R33.9: Retention of urine, unspecified) PVR (cc): 04/16/24 - 413 initially, repeat 204 repeat at end of ov after voiding again 04/28/24 - 208 08/18/24 - 471 Discussed bladder scans with patient today. The possible effects of retaining urine and risks associated w/ including urinary infection and kidney dysfunction. We discussed insertion of another indwelling catheter vs learning to CIC. At this time patient declines having another cath placed despite known risks. We discussed use of NSAIDs to help reduce inflammation that is likely occuring in prostate as a result of recent procedure. Pt state that he does not like to take NSAIDs. ER for fever, NV, severe flank pain, inability to urinate -Increase fluid intake, -avoid bladder irritants -Cont monitoring with PVRs 3. Elevated PSA (R97.20: Elevated prostate specific antigen [PSA]) PSA: 07/29/21 - 2.33 09/14/23 - 2.87 02/27/24 - 6.00 & 13.7% 04/25/24 - 2.30 -Not addressed today Follow-up With When Contact Information BENNY SHELLEY, John Hauser, URL [address] [address]- Additional Instructions: Follow up August 26 2024 or sooner if needed. Patient Education Benign Prostatic Hyperplasia I, Shree Stallworth, personally scribed for JOSEPH Hoskins APRN on 08/18/2024 15:05:54. . Documentation recorded by the gregor Stallworth accurately reflects the services(s) I performed and decisions made by me. Authenticated by Yasemin Peralta APRN, FNP-C on 08/18/2024 16:08:39. 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 Chronic prostatitis Chronic systolic congestive heart failure Coronary artery disease involving [place] heart with angina pectoris Elevated PSA GERD without esophagitis Hypertension Ischemic cardiomyopathy Pure hypercholesterolemia Testicular hypofunction Urinary retention Historical No qualifying data Procedure/Surgical History Cystoscopy (06/23/2024), Colonoscope, Hernia repair. Medications albuterol carvedilol 6.25 mg Tab, 6.25 mg= 1 tab(s), Oral, BID losartan 50 mg Tab, 50 mg= 1 [...] Tobacco Use:. Never Smokeless Tobacco Use:. Cigarettes, 08/18/2024 Family History Hyperlipidemia: Father. Hypertension: Father. Immunizations Vaccine Date Status influenza virus vac (more content not included)... Normal [facility] Comment on above: Result Comment: Elec tronically Signed By: JOSEPH Peralta APRN, [place] X\.br\Date and Time Signed: 08/18/24 16:08 EDT\.br\Electronically Co-Signed By: Shree Stallworth\.br\Date and Time Co-Signed: 08/18/24 15:06 EDT Ambulatory Visit Summaryon 0 08-15-2024 Ambulatory Visit Summary Ambulatory Visit Summary KVNGDEMARCUS MACIAS Jose :1955 Visit Date:08/15/2024 Ambulatory Visit Instructions Your Care Team Attending Physician - John BAPTISTE MD Primary Care Physician - Sera Flower PA-C Referring Physician - John BAPTISTE MD This Is Your Medications List acetaminophen-hydrocodone ([place] 325 mg-5 mg oral tablet) acetaminophen-tramadol (Ultracet 325 mg-37.5 mg Tab) albuterol carvedilol (carvedilol 6.25 mg Tab) ciprofloxacin (Cipro 500 mg Tab) ciprofloxacin (ciprofloxacin 500 mg Tab) diazepam (Valium 10 mg Tab) losartan (losartan 50 mg Tab) omeprazole (omeprazole 20 mg Cap-DR) oxybutynin (oxybutynin 5 mg Tab) rosuvastatin tamsulosin (tamsulosin 0.4 mg Cap) Procedures Performed Cystoscopy (06/23/2024), Colonoscope, Hernia repair. Medications What How Much When Instructions Unchanged acetaminophen-hydrocodone ([place] 325 mg-5 mg oral tablet) See instructions Take 1 hour prior to your procedure Unchanged acetaminophen-tramadol (Ultracet 325 mg-37.5 mg Tab) See instructions take 1-2 every 6 hrs prn for pain - following procedure Unchanged albuterol Unchanged carvedilol (carvedilol 6.25 mg Tab) 1 Tablets By Mouth 2 times a day Unchanged ciprofloxacin (Cipro 500 mg Tab) See instructions Take 1 tab day prior to procedure and 1 tab day of procdure - afterwards Unchanged ciprofloxacin (ciprofloxacin 500 mg Tab) See instructions Start 3 days prior to procedure - twice a day for 7 days Unchanged diazepam (Valium 10 mg Tab) See instructions Take 1 hr prior to procedure Unchanged losartan (losartan 50 mg Tab) 1 Tablets By Mouth Every day Unchanged omeprazole (omeprazole 20 mg Cap-DR) 1 Capsules By Mouth Every day Unchanged oxybutynin (oxybutynin 5 mg Tab) See instructions 1 tab(s) Oral bid after procedure Unchanged rosuvastatin 40 Milligram By Mouth Every day Unchanged tamsulosin (tamsulosin 0.4 mg Cap) 2 Capsules By Mouth Every day Duration: 30 Days Allergies codeine (Unknown) Problems Ongoing - Any problem that you are currently receiving treatment for. BPH with obstruction/lower urinary tract symptoms Chronic prostatitis Chronic systolic congestive heart failure Coronary artery disease involving [place] heart with angina pectoris Elevated PSA GERD without esophagitis Hypertension Ischemic cardiomyopathy Pure hypercholesterolemia Testicular hypofunction Urinary retention Patient Survey You may receive a survey via text or e-mail asking about your office visit. Please share your experience with us by completing your survey. We appreciate your feedback and thank you for choosing us for your care. [facility] Inpatient Patient Summaryon 08-08-2024 Inpatient Patient Summary Inpatient Patient Summary [place] [id number] Clinical Summary Person Information Name: DEMARCUS CALDERON Age: 69 Years : 1955 Sex: Male PCP: Sera Flower PA-C Marital Status: Race: White Ethnicity: Non- or Language: Sinhala Visit Id: Visit Reason: BPH WITH LUTS Speciality: Acuity: Enc Type: Outpatient Med Service: Surgery Arrival: 08/08/2024 12:42:16 Discharge: Dispo Type: Address: [address] [place] [address] [address] [facility] [id number] Provider Notes: Diagnosis: Other obstructive and reflux uropathy Problems Active BPH with obstruction/lower urinary tract symptoms Chronic prostatitis Urinary retention Elevated PSA Chronic systolic congestive heart failure Coronary artery disease involving [place] heart with angina pectoris Testicular hypofunction Pure hypercholesterolemia Ischemic cardiomyopathy GERD without esophagitis Hypertension Smoking Status: Functional Status: Sensory Deficits: History of Falls: Mobility Assistance Prior to Admission: ADLs: Current Level of Assistance for Self-Care/Mobility: Cognitive Status: Allergies codeine (Unknown) Laboratory or Other Results This Visit (last charted value for your 08/08/2024 visit) No Laboratory or Other Results This Visit Measurements: Height: 172 cm Weight: 111 kg Blood Pressure: Not Valued / Not Valued BMI: 37.52 kg/m2 Procedures No Procedures Documented Immunizations No Immunizations Documented This Visit Final Med List: acetaminophen-hydrocodone ([place] 325 mg-5 mg oral tablet) Take 1 hour prior to your procedure. Refills: 0. acetaminophen-tramadol (Ultracet 325 mg-37.5 mg Tab) take 1-2 every 6 hrs prn for pain - following procedure. Refills: 0. albuterol carvedilol (carvedilol 6.25 mg Tab) 1 Tablets By Mouth 2 times a day. ciprofloxacin (Cipro 500 mg Tab) Take 1 tab day prior to procedure and 1 tab day of procdure - afterwards. Refills: 0. ciprofloxacin (ciprofloxacin 500 mg Tab) Start 3 days prior to procedure - twice a day for 7 days. Refills: 0. diazepam (Valium 10 mg Tab) Take 1 hr prior to procedure. Refills: 0. losartan (losartan 50 mg Tab) 1 Tablets By Mouth every day. omeprazole (omeprazole 20 mg Cap-DR) 1 Capsules By Mouth every day. oxybutynin (oxybutynin 5 mg Tab) 1 tab(s) Oral bid after procedure. Refills: 0. rosuvastatin 40 Milligram By Mouth every day. tamsulosin (tamsulosin 0.4 mg Cap) 2 Capsules By Mouth every day for 30 Days. Refills: 11. Care Team Members: Attending Physician: John BAPTISTE MD Consulting Physician: Referring Physician: John BAPTISTE MD Follow up: With: Address: When: [address] [facility] [address], [place] [id number] Business (1) Comments: Push the fluids to keep the urine clear. Stay on the Flomax for now. Some discharge instructions have been provided. If the bleeding gets severe, or the catheter is clogging from blood clots, you need to go to the ER for irrigation. Will make a one week appt. to remove the catheter. Type Location Start Finish [facility] Urology CALL PAT FT [facility] Urology Surgical Services 08/13/2024 12:00 PM 08/13/2024 12:30 PM Confirmed Patient Education Information: EU - Urolift Discharge Instructions (Custom) [facility] Main OR Intraoperative Recor don 08-08-2024 Main OR Intraoperative Record Main OR Intraoperative Record IntraOp Document Type FTURO Summary Primary Physician: John BAPTISTE MD Finalized Date/Time: 08/08/24 14:01:11 Pt. Name: DEMARCUS CALDERON Jose Miranda/Sex: 1955 Male Med Rec #: [id number] Physician: John BAPTISTE MD Financial #: [id number] Pt. Type: O Room/Bed: / Admit/Disch: 08/08/24 12:42:16 - Institution: Case Times FTURO Entry 1 Patient Times In Room 08/08/24 13:20:00 Out Room 08/08/24 14:00:00 Procedure Times Start 08/08/24 13:25:00 Stop 08/08/24 13:41:00 Anesthesia Times Last Modified By: Demetrice CAMACHO, Leena Hauser 08/08/24 14:00:52 General Comments: 20FR 3WAY CATHETER TO LEG BAG INSERTED BY DR. BENNY HERNANDEZ,RN Case Attendance FTURO Entry 1 Entry 2 Entry 3 Case Attendee BENNY SHELLEY, John Hernandez RN, Dian Jackman Role Performed Surgeon - Primary Edge Stitcher - Primary Scrub - Primary Time In 08/08/24 13:20:00 08/08/24 13:20:00 08/08/24 13:20:00 Time Out 08/08/24 14:00:00 08/08/24 14:00:00 08/08/24 14:00:00 Procedure CYSTOSCOPY LOCAL CYSTOSCOPY LOCAL CYSTOSCOPY LOCAL UROLIFT(.) UROLIFT(.) UROLIFT(.) Comments Last Modified By: Demetrice CAMACHO, Leena Hernandez RN, Leena Hernandez RN, Leena Hauser 08/08/24 Celina Hauser 08/08/24 Celina Hauser 08/08/24 14:00:53 14:00:53 14:00:53 Surgical Procedures FTURO Entry 1 Procedure Description Procedure CYSTOSCOPY LOCAL UROLIFT Modifiers . Surgeon Description CYSTOSCOPY, UROLIFT Primary Procedure Yes Primary Surgeon John BAPTISTE MD Start 08/08/24 13:25:00 Stop 08/08/24 13:41:00 Anesthesia Type Local Surgical Service Urology Wound Class 2 - Clean-Contaminated Last Modified By: Leena Hernandez RN 08/08/24 13:43:48 General Case Data FTURO Pre-Care Text: Classifies surgical wound, implements aseptic technique, initiates traffic control Entry 1 Case Information OR URO 1 FT Case Level None Wound Class 2 - Clean-Contaminated Specialty Urology Preop Diagnosis BPH WITH LUTS Postop Same As Preop Yes Postop Diagnosis BPH WITH LUTS Outcomes Met? Yes Last Modified By: Leena Hernandez RN 08/08/24 13:25:27 Post-Care Text: The patient is free from signs and symptoms of infection EU IntraOp - FTURO Pre-Care Text: Implements protective measures prior to operative or invasive procedure, confirms identity before the operative or invasive procedure, verifies operative procedure, surgical site, and laterality Entry 1 EU Perioperative Protocols Procedure(s) CYSTOSCOPY LOCAL Patient Identity Birthday, ID Band UROLIFT(.) Verified (select at Check, Patient least 2): Participation Consents / H and P H&P, Surgery/Procedure Operative Site N/A Verified Consent Marking Verified Surgical Site Yes Laterality Verified n/a Verified Procedure Verified Yes Correct Patient Yes Position Verified Availability Equipment, Implant, Time Out John BAPTISTE MD, Verified (If Medication Participants Leena Hernandez RN Applicable) Jayme aCsh Laura C Time Out Complete 08/08/24 13:23:00 Allergies Reviewed? Yes Allergies Reviewed Self/Patient With Body Position Supine Prep Area PENIS AND SCROTUM Prep Agents Betadine Solution Skin. Condition Unable to Visualize Description PARTIALLY CLOTHED AND DRAPED Additional None Specimens Collected Vitals - EU Blood Pressure 146/74 Pulse 58 bpm Respirations 18 br/min SPO2 95 % I&O - EU Outcomes Met? Yes Last Modified By: Leena Hernandez RN 08/08/24 13:29:05 Post-Care Text: The patient is free from signs and symptoms of injury caused by extraneous objects Implant Log FTURO Pre-Care Text: Records devices implanted during the operative or invasive procedure Entry 1 Entry 2 Entry 3 Implant/Explant Implant Implant Implant Implant Identification Description UROLIFT 2 IMPLANT UROLIFT 2 IMPLANT UROLIFT 2 ATC IMPLANT CARTRIDGE CARTRIDGE CARTRIDGE Serial Number Lot Number [id number] Office Machine Servicer Apprentice NEOTRACT NEOTRACT NEOTRACT Catalog ???# [id number] Size Expiration Date 08/19/25 08/19/25 01/22/26 Usage Data Implant Site PROSTATE PROSTATE PROSTATE Quantity 1 5 2 Temperature Reconstitution Method Outcomes Met? Yes Yes Yes Last Modified By: Demetrice RN, Leena Hernandez RN, Leena Hernandez RN, Leena Hauser 08/08/24 Celina Hauser 08/08/24 Celina Hauser 08/08/24 13:30:08 13:37:17 13:39:37 Post-Care Text: The patient is free from signs and symptoms of injury caused by extraneous objects Sign Out FTURO Entry 1 Before Patient Leaves OR Nurse verbally Yes Nurse verbally Yes confirms with the confirms with the team the name of team that the procedure(s) instrument, sponge, recorded and needle counts are correct (or N/A) Nurse verbally n/a Nurse verbally n/a confirms with the confirms with the team how the team whether there specimen is labeled are any equipment (including patient problems (more content not included)... Normal [facility] Main OR Preoperative Recordo n 08-08-2024 Main OR Preoperative Record Main OR Preoperative Record Holding Area Document Type FTURO Summary Primary Physician: John BAPITSTE MD Finalized Date/Time: 08/08/24 13:16:05 Pt. Name: DEMARCUS CALDERON/Sex: 1955 Male Med Rec #: [id number] Physician: John BAPTISTE MD Financial #: [id number] Pt. Type: O Room/Bed: / Admit/Disch: 08/08/24 12:42:16 - Institution: Case Times Holding FTURO Pre-Care Text: Verifies consent for planned procedure, identifies individual values and wishes concerning care, includes family members in perioperative teaching Secures patient's records' belongings, and valuables, maintains patient's dignity and privacy, and maintains patient confidentiality Entry 1 In Holding 08/08/24 13:13:00 Outcomes Met? Yes Last Modified By: Bonny Brenner 08/08/24 13:13:07 Post-Care Text: The patient participates in decisions affecting his or her perioperative plan of care The patient's right to privacy is maintained Surgery Checklist FTURO Entry 1 Patient Birthday, ID Band Procedure History and Physical, Identification: Check, Patient Verification: Surgical Consent, With Participation Patient NPO after Midnight: n/a Date/Time: 08/08/24 13:13:00 Personal Items: Glasses Personal Items CLOTHES AND SHOES Comment: Limitations: N/A Complaints of Pain: No Pain Comment: N/A Skin Integrity Intact, [place], Warm, & Dry Vitals - EU Blood Pressure 146/74 Pulse 58 bpm Respirations 18 br/min SPO2 95 % Additional None Specimens Comment N/A Specimens Collected Residual Amount - 0 RN Reviewed Yes Post Void Last Modified By: Bonny Brenner 08/08/24 13:15:24 Finalized By: Bonny Brenner Document Signatures Signed By: Bonny Brenner 08/08/24 13:15 Bonny Brenner 08/08/24 13:[address] [facility] Operative Reporton Operative Report Operative Report Patient: DEMARCUS CALDERON Age: 69 years Sex: Male : 1955 Associated Diagnoses: None Author: John BAPTISTE MD Procedure Operative Information Details: Date/ Time: 08/08/2024 13:41:00. Pre-Op Dx: Acute urinary retention ([id number] R33.8, Working, Medical), BPH with obstruction/lower urinary tract symptoms (RPT50-ES N40.1, Working, Medical). Post-Op Dx: Same. Anesthesia Type: Local. Procedure: Cystoscopy with UroLift Prostatic Urethral Lift. Complications: None. Risks/Benefits/Informed Consent: Surgical risks, benefits, details of the procedure have been explained to the patient, Full informed consent has been obtained. 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 He remains on Flomax and this should continue after the procedure (0.8 mg total daily). Intraoperative Information Prepped: Patient received 1 hour prior to procedure (10 mg diazepam, 5/325 mg of [place]), Local Anesthesia (60cc 2% Xylocaine liquid inserted into bladder, 20cc Xylocaine 2% jelly inserted into urethra, Penile clamp applied for 20 min dwell prior to procedure with patient in sitting position). Procedure: A 20F cystoscope was inserted into the bladder, The cystoscopy bridge was replaced with a UroLift delivery device, The first treatment site was the patient's left side approximately 1.5 cm distal to the bladder neck, The distal tip of the delivery device was then angled laterally approximately 20 degrees at this position to compress the lateral lobe, The trigger was pulled, thereby deploying a needle containing the implant through the prostate, The needle was then retracted, allowing one end of the implant to be delivered to the capsular surface of the prostate, The implant was then tensioned to assure capsular seating and removal of slack monofilament, The device was then angled back toward midline and slowly advanced proximally (typically 3-4mm) until cystoscopic verification of the monofilament being centered in the delivery bay, The urethral end piece was then affixed to the monofilament thereby tailoring the size of the implant, Excess filament was then severed, The delivery device was then readvanced into the bladder, The delivery device was then replaced with cystoscope and bridge and the implant location and opening effect was confirmed cystoscopically, The same procedure was then repeated on the right side, Two additional implants were delivered just proximal to the veru montanum, again one on right and one on left side of the prostate, following the same technique, Cystoscopy then revealed a persistent area of obstruction, and two more implants were delivered in the mid prostate, A final cystoscopy was conducted first to inspect the location and state of each implant, And second, to confirm the presence of a continuous anterior channel was present through the prostatic urethra with irrigation flow turned off, All instruments were removed, The patient was then allowed to sit up, Two more implants were placed , pulling the median lobe from the left to the right. (ATC's utilized) Upon procedure completion, the bladder was filled. with about 150 cc of saline. Voiding trial pending at the time of this dictation. Ozuna catheter to be placed if he fails to void. . Specimens Removed: None. Devices Implanted: 8 Urolift devices. Postoperative Information Discharge: Home without Ozuna if he passes voiding trial, versus home with Ozuan to leg bag if unable to void. Then plan follow up in 1-2 weeks. . The patient voided about 100 cc without problems, but the urine is bloody. Discussed options. Will place three way Ozuna, push fluids, and may need ER evaluation and CBI if the bleeding gets more persistent/severe. He agrees with the plan. Normal [facility] Comment on above: Result Comment: Elec tronically Signed By: John BAPTISTE MD\.br\Date and Time Signed: 08/08/24 13:51 EDT Outpatient Surgery Discharge Instructionon 08-08-2024 Outpatient Surgery Discharge Instruction Outpatient Surgery Discharge Instruction [address] [address] Patient Discharge Instructions PERSON INFORMATION Name: DEMARCUS CALDERON Date of : 1955 Current Date: 08/08/2024 14:02:09 PHYSICIANS Admitting Physician: John BAPTISTE MD Comment: Discharge Diagnosis: Other obstructive and reflux uropathy DEMARCUS CALDERON has been given the following list of follow-up instructions, prescriptions, and patient education materials: IF UNABLE TO CONTACT YOUR PHYSICIAN AND YOU FEEL IT IS AN EMERGENCY, GO TO THE NEAREST EMERGENCY ROOM OR CALL 911 Follow up: With: Address: When: John BAPTISTE [address] [place] [address], [address], [place] [id number] [facility] (1) Comments: Push the fluids to keep the urine clear. Stay on the Flomax for now. Some discharge instructions have been provided. If the bleeding gets severe, or the catheter is clogging from blood clots, you need to go to the ER for irrigation. Will make a one week appt. to remove the catheter. Type Location Start Finish State [facility]rology CALL PAT [facility] 08/13/2024 12:00 PM 08/13/2024 12:30 PM Confirmed Comment: PATIENT EDUCATION INFORMATION Instructions: Urolift ??? Some men may experience discomfort after the procedure. On occasion, some bloody discharge may be apparent from the penis. You may have soreness in the lower abdomen, and it may be uncomfortable to sit. You may experience the need to urinate more frequently and with greater urgency. These are all normal reactions to the procedure. It is important to take care of yourself the next couple of days to facilitate a speedy recovery. The following are some suggestions: -Have someone drive you home after the procedure. -Drink plenty of water; 8 10oz glasses per day. If your urine looks dark yellow, you are probably not drinking enough water. -Take your medications as prescribed -If you have a catheter placed, do not engage in strenuous activity until your catheter has been removed. You may take a shower but avoid a bath while you have a catheter. - In the event you have to go home with a catheter, you may notice leakage of urine and/or yellow discharge/blood around the catheter. This is normal and no cause to be alarmed; UNLESS you are having significant pain associated with the leakage or the leakage does not stop. -You can use Tylenol or Advil for discomfort. Use AZO (over the counter) for burning with urination ??? It is normal to have some blood in your urine after surgery. One day it may be clear, and the next day it might be bloody. Do not be alarmed, this can last a week and sometimes longer. ??? It is normal to feel like you have to urinate very often but nothing comes out. You may feel like you have to urinate again, or feel pressure in the pelvic area, even right after you just urinated. ??? You may leak and not make it to the bathroom. These are called ???bladder spasms??? and are common after the procedure. ??? It is normal to have some discomfort after the procedure. This can last up to 4 weeks and includes: pelvic ache, urinary frequency, and urinary urgency. Most patients report symptoms getting better within 2 weeks. ??? Finish the antibiotic which you have already started ??? If you were given drugs to make you drowsy or pain medication follow these instructions: -You should spend the remainder of the day and evening resting -You should not attempt to walk, including going to the bathroom without assistance. You may be lightheaded from the medication you received. -Eat light today to avoid nausea. You should be able to return to your normal diet 24 to 36 hours after your procedure. -For the next 24 hours, do not consume alcohol, attempt to drive, use power tools, sign important documents or make important decisions. After that only do so if you feel perfectly normal and alert. -Follow carefully any verbal or written instructions your surgeon may give you. ??? You should contact your physician if you experience any of the following: -Temperature above 101.5 -Excessive urinary bleeding or bleeding from the penis -Continuous bladder spasms -Painful, swollen and/or inflated testicle(s) or scrotum. -Unable to void spontaneously or the indwelling catheter is not draining urine or is blocked -Bright [place]ton red urine that does not stop after 3 days -Unable to urinate after 7-8 hours or bladder feeling full and you can???t urinate -If you have excessive or persistent pain, swelling, bleeding, nausea, vomiting, or any problems, you should first call your surgeon for advice. If you are unable to contact your surgeon, seek help from a hospital emergency room. KVNG Munoz RUSSELL J, have received the attached patient education materials/instructions and have verbalized understanding: May we do a follow up call? Yes (more content not included)... Normal [facility] Urology Office/Clinic Noteon 06-23-2024 Urology Office/Clinic Note [...] Contact Information John BAPTISTE MD, URL [address] [address]- Additional Instructions: schedule Urolift Patient Education Prostatic [...] software, specif (more content not included)... Normal [facility] Comment on above: Result Comment: Elec [...] Contact Information ADRIÁN DELACRUZ, SU Esquivel, URL [address] [facility] [place] [address] Additional Instructions: Schedule Cysto Patient [...] congestive heart failure Coronary artery disease involving [place] heart with angina pectoris Elevated PSA GERD [...] Protein Urine Dipstick: Negative (04/28/24 12:04:00) Specific [place] Urine Dipstick: 1.020 (04/28/24 12:04:00) Urine Appearance Urine Dipstick: Clear (04/28/24 12:04:00) Urine Color Urine Dipstick: Yellow (04/28/24 12:04:00) Urobilinogen Urine Dipstick: Normal 0.2-1 EU/dl (04/28/24 12:04:00) pH Urine Dipstick: 6.5 (04/28/24 12:04:00) Normal [facility] Comment on above: Result Comment: Elec [...] used for this result was chemiluminescence using [employer] Access Hybritech PSA reagent. PSA Totalon 04-25-2024 Prostate specific Ag [Mass/Vol] 2.3 ng/mL Normal 0.1-3.5 [facility] Comment on above: Result Comment: The concentration of PSA determined by different manufacturers can vary due to differences in assay methods and reagent specificity. Values obtained from different assay methods cannot be used interchangeably. The methodology used for this result was chemiluminescence using [employer] Access Hybritech PSA reagent. Performed By: #### 1 [id number] #### [facility] [address] [place] [address] No Panel Informationon 02-18 [facility] WHITE BLOOD CELLSon 02-19-20 24 WHITE BLOOD CELLS White Blood Cells [facility] WHITE BLOOD CELLS None seen [facility] Activated partial thrombopla stin time (aPTT) in platelet poor plasma by coagulation aOrdered By: Jasper Gross on 06-14-2023 aPTT Coag (PPP) [Time] 30.2 s 25.1-36.5 [facility] Comment on above: A hematocrit value g reater than 55% may lead to inaccurate results in coagulation testing. Patients having hematocrit values >55% require a special collection tube for coagulation studies. Please contact the laboratory at [phone] for redraw instructions. Alanine aminotransferase [En zymatic activity/volume] in Serum or PlasmaOrdered By: Jasper Gross on 06-14-2023 ALT [Catalytic activity/Vol] 37 U/L 7-52 [facility] Albumin [Mass/volume] in Ser um or Plasma by Bromocresol green (BCG) dye binding methoOrdered By: Jasper Gross on 06-14-2023 Albumin BCG dye [Mass/Vol] 4.1 g/dL 3.5-5.7 [facility] Alkaline phosphatase [Enzyma tic activity/volume] in Serum or PlasmaOrdered By: Jasper Gross on 06-14-2023 ALP [Catalytic activity/Vol] 59 U/L 34-104 [facility] Aspartate aminotransferase [ Enzymatic activity/volume] in Serum or PlasmaOrdered By: Jasper Gross on 06-14-2023 AST [Catalytic activity/Vol] 29 U/L 13-39 [facility] B-Type Natriuretic Peptideon 06-14-2023 Natriuretic peptide B (Bld) [Mass/Vol] 67.0 pg/mL Normal 5-100 [facility] Comment on above: Result Comment: PERF ORMED BY: [facility] [address] [place] [address] PATHOLOGIST CYCLE REPAIRER RAPHAEL RANGEL M.D. Performed By: #### C OVID19 FLU RSV, CEPHEID NEG #### [facility] [address] Basophils Auto (Bld) [#/Vol] Ordered By: Jasper Gross on 06-14-2023 Basophils (Bld) [#/Vol] 0.0 10*3/uL 0.0-0.2 [facility] Basophils/100 WBC Auto (Bld) Ordered By: Jasper Gross on 06-14-2023 Basophils/100 WBC (Bld) 0.6 % . [facility] Bilirubin.total [Mass/volume ] in Serum or PlasmaOrdered By: Jasper Gross on 06-14-2023 Bilirubin [Mass/Vol] 0.4 mg/dL 0.3-1.0 [facility] COVID CepheidOrdered By: Asya Gross on 06-14-2023 SARS-CoV-2 (COVID-19) Ab IA Ql Negative Negative [facility] Comment on above: This is a duplicate Cepheid Xpert Xpress CoV-2/Flu/RSV Plus RNA by RT-PCR result to be used for statistical tracking purpose only. SARS-CoV-2 (COVID-19) RNA VERONA+probe Ql (Unsp spec) [facility] COVID-19 / Flu A/B / RSV [...] or Cepheid Disclaimer revoked sooner. PERFORMED BY: [place] [address] PATHOLOGIST CYCLE REPAIRER RAPHAEL RANGEL M.D. Normal [facility] Comment on above: Performed By: #### C OVID19 FLU RSV, CEPHEID NEG #### [address] Calcium [Mass/volume] in Ser um or PlasmaOrdered By: Jasper Gross on 06-14-2023 Calcium [Mass/Vol] 9.0 mg/dL 8.6-10.3 [facility] Carbon dioxide, total [Moles /volume] in Serum or PlasmaOrdered By: Jasper Gross on 06-14-2023 CO2 [Moles/Vol] 23.4 mmol/L 21.0-31.0 [facility] Cepheid COVID PCR Negativeon 06-14-2023 SARS-CoV-2 (COVID-19) RNA VERONA+probe Ql (Unsp spec) Negative Normal Negative [facility] Comment on above: Result Comment: This is a duplicate Cep[employer] Xpert Xpress CoV-2/Flu/RSV Plus RNA by RT-PCR result to be used for statistical tracking purpose only. PERFORMED BY: [place] [address] PATHOLOGIST CYCLE REPAIRER RAPHAEL RANGEL M.D. Performed By: #### C OVID19 FLU RSV, CEPHEID NEG #### [address] Chloride [Moles/volume] in S taylor or PlasmaOrdered By: Jasper Gross on 06-14-2023 Chloride [Moles/Vol] 105 mmol/L 98-107 [facility] Complete Blood Count Auto Di ffon 06-14-2023 Basophils (Bld) [#/Vol] 0.0 10*3/uL Normal 0.0-0.2 [facility] Comment on above: Result Comment: PERF ORMED BY: [place] [address] PATHOLOGIST CYCLE REPAIRER RAPHAEL RANGEL M.D. Performed By: #### B STAIN WIPER, CK, MG, CBC, HS TROP, PTT, PT, CMP #### [place] [address] [place] Basophils/100 WBC (Bld) 0.6 % Normal . [facility] Comment on above: Performed By: #### B STAIN WIPER, CK, MG, CBC, HS TROP, PTT, PT, CMP #### [place] [address] [place] Eosinophils (Bld) [#/Vol] 0.8 10*3/uL High 0.0-0.45 [facility] Comment on above: Performed By: #### B STAIN WIPER, CK, MG, CBC, HS TROP, PTT, PT, CMP #### [place] [address] [place] Eosinophils/100 WBC (Bld) 9.6 % Normal . [facility] Comment on above: Performed By: #### B STAIN WIPER, CK, MG, CBC, HS TROP, PTT, PT, CMP #### [address] Erythrocyte distribution width (RBC) [Ratio] 14.4 % Normal 12.0-14.8 [facility] Comment on above: Performed By: #### B STAIN WIPER, CK, MG, CBC, HS TROP, PTT, PT, CMP #### [address] Hematocrit (Bld) [Volume fraction] 40.8 % Normal 38.8-50.0 [facility] Comment on above: Performed By: #### B STAIN WIPER, CK, MG, CBC, HS TROP, PTT, PT, CMP #### [address] Hemoglobin (Bld) [Mass/Vol] 14.3 g/dL Normal 13.0-17.0 [facility] Comment on above: Performed By: #### B STAIN WIPER, CK, MG, CBC, HS TROP, PTT, PT, CMP #### [address] Lymphocytes (Bld) [#/Vol] 1.5 10*3/uL Normal 1.00-4.8 [facility] Comment on above: Performed By: #### B STAIN WIPER, CK, MG, CBC, HS TROP, PTT, PT, CMP #### [address] Lymphocytes/100 WBC (Bld) 18.5 % Normal . [facility] Comment on above: Performed By: #### B STAIN WIPER, CK, MG, CBC, HS TROP, PTT, PT, CMP #### [address] MCH (RBC) [Entitic mass] 30.1 pg Normal 27.5-35.2 [facility] Comment on above: Performed By: #### B STAIN WIPER, CK, MG, CBC, HS TROP, PTT, PT, CMP #### [address] MCV (RBC) [Entitic vol] 86.2 fL Normal 83.5-101 [facility] Comment on above: Performed By: #### B STAIN WIPER, CK, MG, CBC, HS TROP, PTT, PT, CMP #### [address] Mean Corpuscular HGB Conc 34.9 g/dL Normal 32.5-35.6 [facility] Comment on above: Performed By: #### B STAIN WIPER, CK, MG, CBC, HS TROP, PTT, PT, CMP #### [address] Monocytes (Bld) [#/Vol] 0.8 10*3/uL Normal 0.0-0.8 [facility] Comment on above: Performed By: #### B STAIN WIPER, CK, MG, CBC, HS TROP, PTT, PT, CMP #### [address] Monocytes/100 WBC (Bld) 16.39 % Normal 0.00-20.00 [facility] Comment on above: Performed By: #### B STAIN WIPER, CK, MG, CBC, HS TROP, PTT, PT, CMP #### [address] Monocytes/100 WBC (Bld) 10.1 % Normal . [facility] Comment on above: Performed By: #### B STAIN WIPER, CK, MG, CBC, HS TROP, PTT, PT, CMP #### [address] Neutrophils (Bld) [#/Vol] 4.9 10*3/uL Normal 1.8-7.7 [facility] Comment on above: Performed By: #### B STAIN WIPER, CK, MG, CBC, HS TROP, PTT, PT, CMP #### [address] Neutrophils/100 WBC (Bld) 61.2 % Normal . [facility] Comment on above: Performed By: #### B STAIN WIPER, CK, MG, CBC, HS TROP, PTT, PT, CMP #### [address] NRBC% 0.1 /100{WBC} Normal 0-0.5 [facility] Comment on above: Performed By: #### B STAIN WIPER, CK, MG, CBC, HS TROP, PTT, PT, CMP #### [address] Platelet mean volume (Bld) [Entitic vol] 8.4 fL Normal 6.6-10.1 [facility] Comment on above: Performed By: #### B STAIN WIPER, CK, MG, CBC, HS TROP, PTT, PT, CMP #### [facility] [address] Platelets (Bld) [#/Vol] 181 10*3/uL Normal 150-450 [facility] Comment on above: Performed By: #### B STAIN WIPER, CK, MG, CBC, HS TROP, PTT, PT, CMP #### [address] RBC (Bld) [#/Vol] 4.74 10*6/uL Normal 3.90-5.60 [facility] Comment on above: Performed By: #### B STAIN WIPER, CK, MG, CBC, HS TROP, PTT, PT, CMP #### [address] WBC (Bld) [#/Vol] 8.1 10*3/uL Normal 4.1-10.5 [facility] Comment on above: Performed By: #### B STAIN WIPER, CK, MG, CBC, HS TROP, PTT, PT, CMP #### [address] Comprehensive Metabolic Pane maria esther 06-14-2023 Albumin [Mass/Vol] 4.1 g/dL Normal 3.5-5.7 [facility] Comment on above: Performed By: #### B STAIN WIPER, CK, MG, CBC, HS TROP, PTT, PT, CMP #### [address] Albumin/Globulin [Mass ratio] 1.6 {ratio} Normal [facility] Comment on above: Performed By: #### B STAIN WIPER, CK, MG, CBC, HS TROP, PTT, PT, CMP #### [facility] [address] ALP [Catalytic activity/Vol] 59 U/L Normal 34-104 [facility] Comment on above: Performed By: #### B STAIN WIPER, CK, MG, CBC, HS TROP, PTT, PT, CMP #### [facility] [address] ALT [Catalytic activity/Vol] 37 U/L Normal 7-52 [facility] Comment on above: Performed By: #### B STAIN WIPER, CK, MG, CBC, HS TROP, PTT, PT, CMP #### [address] Anion gap [Moles/Vol] 11.5 mmol/L Normal 6.0-15.0 [facility] Comment on above: Performed By: #### B STAIN WIPER, CK, MG, CBC, HS TROP, PTT, PT, CMP #### [address] AST [Catalytic activity/Vol] 29 U/L Normal 13-39 [facility] Comment on above: Performed By: #### B STAIN WIPER, CK, MG, CBC, HS TROP, PTT, PT, CMP #### [address] Bilirubin [Mass/Vol] 0.4 mg/dL Normal 0.3-1.0 [facility] Comment on above: Performed By: #### B STAIN WIPER, CK, MG, CBC, HS TROP, PTT, PT, CMP #### [address] Calcium [Mass/Vol] 9.0 mg/dL Normal 8.6-10.3 [facility] Comment on above: Performed By: #### B STAIN WIPER, CK, MG, CBC, HS TROP, PTT, PT, CMP #### [address] Chloride [Moles/Vol] 105 mmol/L Normal 98-107 [facility] Comment on above: Performed By: #### B STAIN WIPER, CK, MG, CBC, HS TROP, PTT, PT, CMP #### [address] CO2 [Moles/Vol] 23.4 mmol/L Normal 21.0-31.0 [facility] Comment on above: Performed By: #### B STAIN WIPER, CK, MG, CBC, HS TROP, PTT, PT, CMP #### [address] Creatinine [Mass/Vol] 0.89 mg/dL Normal 0.70-1.30 [facility] Comment on above: Performed By: #### B STAIN WIPER, CK, MG, CBC, HS TROP, PTT, PT, CMP #### [address] Creatinine Clr Calc Pharmacy 92.42 [facility] Comment on above: Performed By: #### B STAIN WIPER, CK, MG, CBC, HS TROP, PTT, PT, CMP #### [address] GFR/1.73 sq M.predicted MDRD (S/P/Bld) [Vol rate/Area] mL/min/{1.73_m2} [facility] Comment on above: Performed By: #### B STAIN WIPER, CK, MG, CBC, HS TROP, PTT, PT, CMP #### [address] Globulin (S) [Mass/Vol] 2.5 g/dL [facility] Comment on above: Performed By: #### B STAIN WIPER, CK, MG, CBC, HS TROP, PTT, PT, CMP #### [address] Glucose [Mass/Vol] 144 mg/dL High 70-100 [facility] Comment on above: Result Comment: Dania Glucose Reference Range is dependent on time and content of last meal. Glucose of more than 200 mg/dL in a nonstressed, ambulatory subject supports the diagnosis of Diabetes Mellitus. ADA recommended reference range Performed By: #### B STAIN WIPER, CK, MG, CBC, HS TROP, PTT, PT, CMP #### [facility] [address] Potassium [Moles/Vol] 3.9 mmol/L Normal 3.5-5.1 [facility] Comment on above: Performed By: #### B STAIN WIPER, CK, MG, CBC, HS TROP, PTT, PT, CMP #### [facility] [address] Protein [Mass/Vol] 6.6 g/dL Normal 6.4-8.9 [facility] Comment on above: Performed By: #### B STAIN WIPER, CK, MG, CBC, HS TROP, PTT, PT, CMP #### [facility] [address] Sodium [Moles/Vol] 136 mmol/L Normal 136-145 [facility] Comment on above: Performed By: #### B STAIN WIPER, CK, MG, CBC, HS TROP, PTT, PT, CMP #### [facility] [address] Urea nitrogen [Mass/Vol] 12 mg/dL Normal 7-25 [facility] Comment on above: Performed By: #### B STAIN WIPER, CK, MG, CBC, HS TROP, PTT, PT, CMP #### [facility] [address] Creatine Kinaseon 06-14-2023 CK [Catalytic activity/Vol] 185 U/L Normal - [facility] Comment on above: Performed By: #### C OVID19 FLU RSV, CEPHEID NEG #### [place] [address] [place] Creatine kinase [Enzymatic a ctivity/volume] in Serum or PlasmaOrdered By: Jasper Gross on 06-14-2023 CK [Catalytic activity/Vol] 185 U/L [facility] Creatinine [Mass/volume] in Serum or PlasmaOrdered By: Jasper Gross on 06-14-2023 Creatinine [Mass/Vol] 0.89 mg/dL 0.70-1.30 [facility] ECG 12 lead ECGon 06-14-2023 ECG 12 lead ECG [facility] [place] [address] Electrocardiograph Report Signed Patient: Demarcus Calderon MR#: [id number] : 1955 Acct:[id number] Age/Sex: 68 / M ADM Date: 06/14/23 Loc: ER Room: Type: [facility] ER Attending Dr: Ordering Provider: Jasper [...] sinus rhythm Confirmed by Jasper GROSS DO ([id number]) on 06/14/2023 2:25:14 PM Referred By: Electronically Signed By:Jasper GROSS DO Transcribed By: MUS Signed By Jasper Gross DO 0 06/14/23 1425 Normal [facility] Eosinophils Auto (Bld) [#/Vo l]Ordered By: Jasper Gross on 06-14-2023 Eosinophils (Bld) [#/Vol] 0.8 10*3/uL 0.0-0.45 [facility] Eosinophils/100 WBC Auto (Bl d)Ordered By: Jasper Gross on 06-14-2023 Eosinophils/100 WBC (Bld) 9.6 % . [facility] Erythrocyte distribution wid th Auto (RBC) [Ratio]Ordered By: Jasper Gross on 06-14-2023 Erythrocyte distribution width (RBC) [Ratio] 14.4 % 12.0-14.8 [facility] Globulin Calc (S) [Mass/Vol] Ordered By: Jasper Gross on 06-14-2023 Globulin (S) [Mass/Vol] 2.5 g/dL [facility] Glucose [Mass/volume] in Ser um or PlasmaOrdered By: Jasper Gross on 06-14-2023 Glucose [Mass/Vol] 144 mg/dL 70-100 [facility] Comment on above: ADA recommended refe rence rangeRandom Glucose Reference Range is dependent on time and content of last meal. Glucose of more than 200 mg/dL in a nonstressed, ambulatory subject supports the diagnosis of Diabetes Mellitus. Hematocrit Auto (Bld) [Volum e fraction]Ordered By: Jasper Gross on 06-14-2023 Hematocrit (Bld) [Volume fraction] 40.8 % 38.8-50.0 [facility] Hemoglobin [Mass/volume] in BloodOrdered By: Jasper Gross on 06-14-2023 Hemoglobin (Bld) [Mass/Vol] 14.3 g/dL 13.0-17.0 [facility] INR in Platelet poor plasma by Coagulation assayOrdered By: Jasper Gross on 06-14-2023 INR Coag (PPP) [Relative time] 1.1 {INR} [facility] Comment on above: INR Therapeutic Rang [...] RBC Auto (Bld) [#/Vol] 8.1 10*3/uL 4.1-10.5 [facility] Lymphocytes Auto (Bld) [#/Vo l]Ordered By: Jasper Gross on 06-14-2023 Lymphocytes (Bld) [#/Vol] 1.5 10*3/uL 1.00-4.8 [facility] Lymphocytes/100 WBC Auto (Bl d)Ordered By: Jasper Gross on 06-14-2023 Lymphocytes/100 WBC (Bld) 18.5 % . [facility] MCH Auto (RBC) [Entitic mass ]Ordered By: Jasper Gross on 06-14-2023 MCH (RBC) [Entitic mass] 30.1 pg 27.5-35.2 [facility] MCHC Auto (RBC) [Mass/Vol]Or dered By: Jasper Gross on 06-14-2023 MCHC (RBC) [Mass/Vol] 34.9 g/dL 32.5-35.6 [facility] MCV Auto (RBC) [Entitic vol] Ordered By: Jasper Gross on 06-14-2023 MCV (RBC) [Entitic vol] 86.2 fL 83.5-101 [facility] Magnesiumon 06-14-2023 Magnesium [Mass/Vol] 2.0 mg/dL Normal 1.9-2.7 [facility] Comment on above: Result Comment: PERF ORMED BY: [place] [address] PATHOLOGIST CYCLE REPAIRER RAPHAEL RANGEL M.D. Performed By: #### B STAIN WIPER, CK, MG, CBC, HS TROP, PTT, PT, CMP #### [address] Magnesium [Mass/volume] in S taylor or PlasmaOrdered By: Jasper rGoss on 06-14-2023 Magnesium [Mass/Vol] 2.0 mg/dL 1.9-2.7 [facility] Monocyte distribution width [Entitic volume] in Blood by AutomatedOrdered By: Jasper Gross on 06-14-2023 Monocyte distribution width Auto (Bld) [Entitic vol] 16.39 % 0.00-20.00 [facility] Monocytes Auto (Bld) [#/Vol] Ordered By: Jasper Gross on 06-14-2023 Monocytes (Bld) [#/Vol] 0.8 10*3/uL 0.0-0.8 [facility] Monocytes/100 WBC Auto (Bld) Ordered By: Jasper Gross on 06-14-2023 Monocytes/100 WBC (Bld) 10.1 % . [facility] Natriuretic peptide B [Mass/ Vol]Ordered By: Jasper Gross on 06-14-2023 Natriuretic peptide B (Bld) [Mass/Vol] 67.0 pg/mL 5-100 [facility] Neutrophils Auto (Bld) [#/Vo l]Ordered By: Jasper Gross on 06-14-2023 Neutrophils (Bld) [#/Vol] 4.9 10*3/uL 1.8-7.7 [facility] Neutrophils/100 WBC Auto (Bl d)Ordered By: Jasper Gross on 06-14-2023 Neutrophils/100 WBC (Bld) 61.2 % . [facility] No Panel InformationOrdered By: Jasper Gross on 06-14-2023 Estimated GFR (CKD-EPI) > 60.0 mL/Min [facility] Creatinine Clearance (Chem 92.42 [facility] Nucleated erythrocytes [Pres ence] in Blood by Automated countOrdered By: Jasper Gross on 06-14-2023 Nucleated RBC Auto Ql (Bld) 0.1 /100{WBC} 0-0.5 [facility] Partial Thromboplastin Timeo n 06-14-2023 aPTT Coag (Bld) [Time] 30.2 s Normal 25.1-36.5 [facility] Comment on above: Result Comment: A he matocrit value greater than 55% may lead to inaccurate results in coagulation testing. Patients having hematocrit values >55% require a special collection tube for coagulation studies. Please contact the laboratory at [phone] for redraw instructions. PERFORMED BY: [place] [address] PATHOLOGIST CYCLE REPAIRER RAPHAEL RANGEL M.D. Performed By: #### C OVID19 FLU RSV, CEPHEID NEG #### [address] Platelet mean volume Auto (B ld) [Entitic vol]Ordered By: Jasper Gross on 06-14-2023 Platelet mean volume (Bld) [Entitic vol] 8.4 fL 6.6-10.1 [facility] Platelets Auto (Bld) [#/Vol] Ordered By: Jasper Gross on 06-14-2023 Platelets (Bld) [#/Vol] 181 10*3/uL 150-450 [facility] Potassium [Moles/volume] in Serum or PlasmaOrdered By: Jasper Gross on 06-14-2023 Potassium [Moles/Vol] 3.9 mmol/L 3.5-5.1 [facility] Protein [Mass/volume] in Ser um or PlasmaOrdered By: Jasper Gross on 06-14-2023 Protein [Mass/Vol] 6.6 g/dL 6.4-8.9 [facility] Prothrombin Time INRon 06-14 INR Coag (PPP) [Relative time] 1.1 {INR} Normal [facility] Comment on above: Result Comment: INR [...] 3 - 4.5 Performed By: #### B STAIN WIPER, CK, MG, CBC, HS TROP, PTT, PT, CMP #### [facility] [address] PT Coag (PPP) [Time] 12.1 s Normal 9.0-12.9 [facility] Comment on above: Result Comment: A he matocrit value greater than 55% may lead to inaccurate results in coagulation testing. Patients having hematocrit values >55% require a special collection tube for coagulation studies. Please contact the laboratory at [phone] for redraw instructions. Performed By: #### B STAIN WIPER, CK, MG, CBC, HS TROP, PTT, PT, CMP #### [facility] [address] [place] [id number] [facility] Prothrombin time (PT)Ordered By: Jasper Gross on 06-14-2023 PT Coag (PPP) [Time] 12.1 s 9.0-12.9 [facility] Comment on above: A hematocrit value g reater than 55% may lead to inaccurate results in coagulation testing. Patients having hematocrit values >55% require a special collection tube for coagulation studies. Please contact the laboratory at [phone] for redraw instructions. RBC Auto (Bld) [#/Vol]Ordere d By: Jasper Gross on 06-14-2023 RBC (Bld) [#/Vol] 4.74 10*6/uL 3.90-5.60 [facility] Serum or plasma albumin/glob ulin mass ratioOrdered By: Jasper Gross on 06-14-2023 Albumin/Globulin [Mass ratio] 1.6 {ratio} [facility] Serum or plasma anion gap de terminationOrdered By: Jasper Gross on 06-14-2023 Anion gap [Moles/Vol] 11.5 mmol/L 6.0-15.0 [facility] Sodium [Moles/volume] in Ser um or PlasmaOrdered By: Jasper Gross on 06-14-2023 Sodium [Moles/Vol] 136 mmol/L 136-145 [facility] Troponin I High Sensitivityo n 06-14-2023 Troponin I High Sensitivity 26.8 pg/mL High 0.0-20.0 [facility] Comment on above: Result Comment: PERF ORMED BY: [place] [address] PATHOLOGIST CYCLE REPAIRER RAPHAEL RANGEL M.D. Performed By: #### C OVID19 FLU RSV, CEPHEID NEG #### [address] Troponin I.cardiac [Mass/vol ume] in Serum or Plasma by Detection limit <= 0.01 ng/Ordered By: Jasper Gross on 06-14-2023 Troponin I.cardiac DL <= 0.01 ng/mL [Mass/Vol] 26.8 pg/mL 0.0-20.0 [facility] Urea nitrogen [Mass/volume] in Serum or PlasmaOrdered By: Jasper Gross on 06-14-2023 Urea nitrogen [Mass/Vol] 12 mg/dL 7-25 [facility] WBC Auto (Bld) [#/Vol]Ordere d By: Jasper Gross on 06-14-2023 WBC (Bld) [#/Vol] 8.1 10*3/uL 4.1-10.5 [facility] XR chest 2V*on 06-14-2023 XR chest 2V* [facility] [place] [address] [place] [address] XRay Report Signed Patient: Demarcus Calderon MR#: [id number] [id number] : 1955 Acct:[id number] Age/Sex: 68 / M ADM Date: 06/14/23 Loc: ER Room: Type: [facility] ER Attending Dr: Copies to: Jasper [...] Salvador Nguyễn M.D.06/14/2023 1:59 PM Dictation Location: [place] [address] Transcribed By: [facility] 06/14/23 1359 Dictated By: Salvador Nguyễn DO 06/14/23 1354 Signed By: 06/14/23 1359 Normal [facility] Cardiac echo study Procedure on 03-20-2023 Ordered by an unspec ified provider. [facility] Alanine aminotransferase [En zymatic activity/volume] in Serum or PlasmaOrdered By: Sera Flower on 02-05-2023 ALT [Catalytic activity/Vol] 51 U/L 7-52 [facility] Albumin [Mass/volume] in Ser um or Plasma by Bromocresol green (BCG) dye binding methoOrdered By: Sera Flower on 02-05-2023 Albumin BCG dye [Mass/Vol] 4.4 g/dL 3.5-5.7 [facility] Alkaline phosphatase [Enzyma tic activity/volume] in Serum or PlasmaOrdered By: Sera Flower on 02-05-2023 ALP [Catalytic activity/Vol] 61 U/L 34-104 [facility] Aspartate aminotransferase [ Enzymatic activity/volume] in Serum or PlasmaOrdered By: Sera Flower on 02-05-2023 AST [Catalytic activity/Vol] 39 U/L 13-39 [facility] Bilirubin.total [Mass/volume ] in Serum or PlasmaOrdered By: Sera Flower on 02-05-2023 Bilirubin [Mass/Vol] 0.7 mg/dL 0.3-1.0 [facility] Calcium [Mass/volume] in Ser um or PlasmaOrdered By: Sera Flower on 02-05-2023 Calcium [Mass/Vol] 9.1 mg/dL 8.6-10.3 [facility] Carbon dioxide, total [Moles /volume] in Serum or PlasmaOrdered By: Sera Flower on 02-05-2023 CO2 [Moles/Vol] 28.0 mmol/L 21.0-31.0 [facility] Chloride [Moles/volume] in S taylor or PlasmaOrdered By: Sera Flower on 02-05-2023 Chloride [Moles/Vol] 103 mmol/L 98-107 [facility] Comprehensive Metabolic Pane maria esther 02-05-2023 Albumin [Mass/Vol] 4.4 g/dL Normal 3.5-5.7 [facility] Comment on above: Order Comment: PT IS FASTING Performed By: #### C MP #### [facility] [address] Albumin/Globulin [Mass ratio] 2.6 {ratio} Normal [facility] Comment on above: Order Comment: PT IS FASTING Performed By: #### C MP #### [facility] [address] ALP [Catalytic activity/Vol] 61 U/L Normal 34-104 [facility] Comment on above: Order Comment: PT IS FASTING Result Comment: PERF ORMED BY: [facility] [address] [place] [address] PATHOLOGIST CYCLE REPAIRER RAPHAEL RANGEL M.D. Performed By: #### C MP #### [facility] [address] [place] [address] [place] ALT [Catalytic activity/Vol] 51 U/L Normal 7-52 [facility] Comment on above: Order Comment: PT IS FASTING Performed By: #### C MP #### [facility] [address] Anion gap [Moles/Vol] 11.4 mmol/L Normal 6.0-15.0 [facility] Comment on above: Order Comment: PT IS FASTING Performed By: #### C MP #### [facility] [address] AST [Catalytic activity/Vol] 39 U/L Normal 13-39 [facility] Comment on above: Order Comment: PT IS FASTING Performed By: #### C MP #### [facility] [address] Bilirubin [Mass/Vol] 0.7 mg/dL Normal 0.3-1.0 [facility] Comment on above: Order Comment: PT IS FASTING Performed By: #### C MP #### [address] Calcium [Mass/Vol] 9.1 mg/dL Normal 8.6-10.3 [facility] Comment on above: Order Comment: PT IS FASTING Performed By: #### C MP #### [address] Chloride [Moles/Vol] 103 mmol/L Normal 98-107 [facility] Comment on above: Order Comment: PT IS FASTING Performed By: #### C MP #### [address] CO2 [Moles/Vol] 28.0 mmol/L Normal 21.0-31.0 [facility] Comment on above: Order Comment: PT IS FASTING Performed By: #### C MP #### [address] Creatinine [Mass/Vol] 1.00 mg/dL Normal 0.70-1.30 [facility] Comment on above: Order Comment: PT IS FASTING Performed By: #### C MP #### [place] [address] [place] GFR/1.73 sq M.predicted MDRD (S/P/Bld) [Vol rate/Area] mL/min/{1.73_m2} Normal [facility] Comment on above: Order Comment: PT IS FASTING Performed By: #### C MP #### [facility] [address] Globulin (S) [Mass/Vol] 1.7 g/dL Normal [facility] Comment on above: Order Comment: PT IS FASTING Performed By: #### C MP #### [facility] [address] Glucose [Mass/Vol] 93 mg/dL Normal 70-100 [facility] Comment on above: Order Comment: PT IS FASTING Result Comment: [facility] Glucose Reference Range is dependent on time and content of last meal. Glucose of more than 200 mg/dL in a nonstressed, ambulatory subject supports the diagnosis of Diabetes Mellitus. ADA recommended reference range Performed By: #### C MP #### [address] Potassium [Moles/Vol] 4.4 mmol/L Normal 3.5-5.1 [facility] Comment on above: Order Comment: PT IS FASTING Performed By: #### C MP #### [facility] [address] Protein [Mass/Vol] 6.1 g/dL Low 6.4-8.9 [facility] Comment on above: Order Comment: PT IS FASTING Performed By: #### C MP #### [address] Sodium [Moles/Vol] 138 mmol/L Normal 136-145 [facility] Comment on above: Order Comment: PT IS FASTING Performed By: #### C MP #### [place] [address] [place] Urea nitrogen [Mass/Vol] 15 mg/dL Normal 7-25 [facility] Comment on above: Order Comment: PT IS FASTING Performed By: #### C MP #### [place] [address] [place] Creatinine [Mass/volume] in Serum or PlasmaOrdered By: Sera Flower on 02-05-2023 Creatinine [Mass/Vol] 1.00 mg/dL 0.70-1.30 [facility] ECH echo transthoracicon ECH echo transthoracic [facility] [place] [address] [place] [address] Echocardiogram Signed Patient: Demarcus Calderon MR#: [id number] [id number] : 1955 Acct:[id number] Age/Sex: 68 / M ADM Date: 02/05/23 Loc: Room: Type: [facility] Attending Dr: Rene Cortez MD Ordering Provider: Rene Cortez MD, [facility] Date of Service: 02/05/23/ [facility] echo transthoracic: HTN, ISCHEMIC CARDIOMYOPATHY Copies to: Rene Cortez MD, [facility] BSA: 2.2 m2 BP: 141/82 mmHg HR: 53 Reason For Study: HTN, ISCHEMIC CARDIOMYOPATHY History: HTN, HLD, Former Smoker, [place], 5 Stents, Asthma, Emphysema, COVID Interpretation Summary [...] 02/05/23 1042 Signed By: Rene Cortez MD, [facility] 02/05/23 1207 Normal [facility] Globulin Calc (S) [Mass/Vol] Ordered By: Sera Flower on 02-05-2023 Globulin (S) [Mass/Vol] 1.7 g/dL [facility] Glucose [Mass/volume] in Ser um or PlasmaOrdered By: Sera Flower on 02-05-2023 Glucose [Mass/Vol] 93 mg/dL 70-100 [facility] Comment on above: ADA recommended refe rence rangeRandom Glucose Reference Range is dependent on time and content of last meal. Glucose of more than 200 mg/dL in a nonstressed, ambulatory subject supports the diagnosis of Diabetes Mellitus. No Panel InformationOrdered By: Sera Flower on 02-05-2023 Estimated GFR (CKD-EPI) > 60.0 mL/Min [facility] Creatinine Clearance (Chem N/A [facility] No Panel Informationon 02-05 [facility] daniel 250 DO Work Phone: Potassium [Moles/volume] in Serum or PlasmaOrdered By: Sera Flower on 02-05-2023 Potassium [Moles/Vol] 4.4 mmol/L 3.5-5.1 [facility] Protein [Mass/volume] in Ser um or PlasmaOrdered By: Sera Flower on 02-05-2023 Protein [Mass/Vol] 6.1 g/dL 6.4-8.9 [facility] Serum or plasma albumin/glob ulin mass ratioOrdered By: Sera Flower on 02-05-2023 Albumin/Globulin [Mass ratio] 2.6 {ratio} [facility] Serum or plasma anion gap de terminationOrdered By: Sera Flower on 02-05-2023 Anion gap [Moles/Vol] 11.4 mmol/L 6.0-15.0 [facility] Sodium [Moles/volume] in Ser um or PlasmaOrdered By: Sera Flower on 02-05-2023 Sodium [Moles/Vol] 138 mmol/L 136-145 [facility] Urea nitrogen [Mass/volume] in Serum or PlasmaOrdered By: Sera Flower on 02-05-2023 Urea nitrogen [Mass/Vol] 15 mg/dL 7-25 [facility] CARDIAC STRESS/REST INJE CTIONon 01-03-2023 [facility] CARDIAC STRESS/REST INJECTION Patient Name: DEMARCUS CALDERON STUDY: MYOCARDIAL PERFUSION STRESS TEST WITH LEXISCAN Performing facility: [facility], [address] [place] [address], [address] Provider: Rene Cortez MD, FACC PCP: Dr. Hunter Flower Supervising provider: Danna Davis DO, [facility] INDICATION: CAD; HTN Hyperlipidemia Ischemic cardiomyopathy HISTORY: Gender: M; Age: 68 y/o ; Height: 172.72 cm; Weight: 520.5603704 kg. CAD; High Cholesterol; HTN; Quit smoking 38 years ago. Cardiac catheterization on 2009. PTCA on 2009. COMPARISON: Previous nuclear testing completed at [facility]. ACCESSION NUMBER(S): [id number]; [id number]; [id number] ORDERING CLINICIAN: RENE CORTEZ TECHNIQUE: TWO DAY [...] Electronically signed by: RENE CORTEZ MD Normal [facility] No Panel Informationon 01-03 Normal -[facility] daniel 250 DO Work Phone: Office Visit [...] Weight Tips; Status:Complete - Retrospective Authorization; Done: [id number] Some eating tips that can help you lose weight.; Status:Complete - Retrospective Authorization; Done: [id number] Essential hypertension, Ischemic cardiomyopathy Renew: Carvedilol 6.25 MG Oral Tablet (Coreg); TAKE 1 TABLET TWICE DAILY WITH MEALS SocHx: Former smoker Stop: Losartan Potassium 25 MG Oral Tablet Tobacco Use Screening; Status:Complete; Done: [id number] Unlinked Stop: hydroCHLOROthiazide 25 MG Oral Tablet [...] emphasis on low-calorie diet Rene Cortez MD, [facility] Surgical History Problems History of Coronary [...] No a (more content not included)... [facility] Tobacco Screening.on 023 Adult depression screening assessment No [facility] 250 DO Work Phone: Fall risk assessment a) No falls within the last year [facility] 250 DO Work Phone: Tobacco use status CP b) No [facility] 250 DO Work [...] by Ethan Walsh on 07/16/2022 1246 Normal [facility] Specialist MRI Brain w/o + w/on 023 MRI [...] Sean Trejo on 07/01/2022 0911 Normal [facility] [employer] Repairer CNPJaye 06-21-2022 CNPN Telephone (INTMLN) -- DEMARCUS CALDERON ([id number]) 1955 Date Time Provider Department 06/21/22 DEANDRA BENDER During your visit today, we recorded the following information about you: Delores Mccollum 06/21/2022 12:54 PM Signed [facility] called today. : 1955 Allergies: Codeine, Codeine-Guaifenesin, and Guaifenesin (home) [phone] (cell) Reason for call: Sasha F:[phone] Asking for the MRI orders and office notes to be faxed over to [facility]. Patient will be having them done there. Patient last appointment: Visit date not found The patients preferred pharmacy has been captured for this encounter? not asked Delores Heard [facility] 06/21/2022 [...] Ethan Walsh on 03/13/2022 1254 Normal [facility] Tunnel Kiln Repairer XR Chest 2 Views*on 01-18-20 XR Chest 2 Views* COMPARISON: none TECHNIQUE: Upright PA and lateral views of the chest were obtained. FINDINGS: Heart is normal in size. Lungs are clear and well expanded. No pleural effusion or pneumothorax. The bony thorax is unremarkable. IMPRESSION: NO ACUTE CARDIOPULMONARY ABNORMALITY. Report reported and signed by AMALIA LOGAN on 01/17/2022 1243 Normal [facility] Tobacco Screening.on Adult depression screening assessment No [facility] [employer] 250 DO Work Phone: Fall risk assessment a) No falls within the last year [facility] [employer] 250 DO Work Phone: Tobacco use status CPHS b) No [facility] [employer] 250 DO Work Phone: CT Chest w/Contraston [...] by AMALIA LOGAN on 08/04/2021 1346 Normal [facility] Complete Blood Count with Au to Diffon 07-29-2021 Basophils (Bld) [#/Vol] 0.05 10*3/uL Normal 0.00-0.20 [facility] Comment on above: Performed By: #### C JOSE ANTONIO, CBCAD #### [facility] [address] [place], [place] [id number] Basophils/100 WBC (Bld) 0.8 % Normal [facility] Comment on above: Performed By: #### C JOSE ANTONIO, CBCAD #### [facility] [address] [place], [place] [id number] Eosinophils (Bld) [#/Vol] 0.46 10*3/uL Normal 0.02-0.50 [facility] Comment on above: Performed By: #### C JOSE ANTONIO, CBCAD #### [facility] [address] [place], [place] [id number] Eosinophils/100 WBC (Bld) 7.7 % Normal [facility] Comment on above: Performed By: #### C JOSE ANTONIO, CBCAD #### [facility] [address] [place], [place] [id number] Erythrocyte distribution width (RBC) [Ratio] 13.3 % Normal 11.0-15.0 [facility] Comment on above: Performed By: #### C JOSE ANTONIO, CBCAD #### [facility] [address], [place] [id number] Hematocrit (Bld) [Volume fraction] 42.2 % Normal 38.5-50.0 [facility] Comment on above: Performed By: #### C MP, CBCAD #### [facility] [address], [place] [id number] Hemoglobin (Bld) [Mass/Vol] 14.5 g/dL Normal 13.0-17.1 [facility] Specialist Comment on above: Performed By: #### C MP, CBCAD #### [facility] [address] [place], [place] [id number] Lymphocytes (Bld) [#/Vol] 1.6 10*3/uL Normal 0.9-3.9 [facility] Specialist Comment on above: Performed By: #### C MP, CBCAD #### [facility] [address] [place], [place] [id number] Lymphocytes/100 WBC (Bld) 26.1 % Normal [facility] Specialist Comment on above: Performed By: #### C MP, CBCAD #### [facility] [address] [place], [place] [id number] MCH (RBC) [Entitic mass] 29.7 pg Normal 27.0-33.0 [facility] Specialist Comment on above: Performed By: #### C MP, CBCAD #### [facility] [address] [place], [place] [id number] MCHC (RBC) [Mass/Vol] 34.4 g/dL Normal 32.0-36.0 [facility] Comment on above: Performed By: #### C MP, CBCAD #### [facility] [address] [place], [place] [id number] MCV (RBC) [Entitic vol] 86 fL Normal 80-100 [facility] Specialist Comment on above: Performed By: #### C MP, CBCAD #### [facility] [address] [place], [place] [id number] Monocytes (Bld) [#/Vol] 0.9 10*3/uL Normal 0.2-0.9 [facility] Specialist Comment on above: Performed By: #### C MP, CBCAD #### [facility] [address] [place], [place] [id number] Monocytes/100 WBC (Bld) 14.6 % Normal [facility] Specialist Comment on above: Performed By: #### C MP, CBCAD #### [facility] [address] [place], [place] [id number] Neutrophils (Bld) [#/Vol] 3.0 10*3/uL Normal 1.5-7.8 [facility] Comment on above: Performed By: #### C MP, CBCAD #### [facility] [address] [place], [place] [id number] Neutrophils/100 WBC (Bld) 50.5 % Normal [facility] Comment on above: Performed By: #### C MP, CBCAD #### [facility] [address] [place], [place] [id number] Platelet mean volume (Bld) [Entitic vol] 10.90 fL Normal 7.50-12.50 [facility] Specialist Comment on above: Performed By: #### C MP, CBCAD #### [facility] [address], [place] [id number] Platelets (Bld) [#/Vol] 166 10*3/uL Normal 140-400 [facility] Specialist Comment on above: Performed By: #### C MP, CBCAD #### [facility] [address] [place], [place] [id number] RBC (Bld) [#/Vol] 4.89 10*6/uL Normal 4.20-5.80 [facility] Specialist Comment on above: Performed By: #### C MP, CBCAD #### [facility] [address] [place], [place] [id number] RDW-SD 41.2 fL Normal 37.0-50.0 [facility] Specialist Comment on above: Performed By: #### C MP, CBCAD #### [facility] [address] [place], [place] [id number] WBC (Bld) [#/Vol] 5.9 10*3/uL Normal 3.8-11.0 [facility] Tunnel Kil[employer] Repairer Comment on above: Performed By: #### C MP, CBCAD #### [facility] [address] [place], [place] [id number] Comprehensive Metabolic Pane [facility] 07-29-2021 Albumin [Mass/Vol] 4.6 g/dL Normal 3.6-5.1 [facility] Tunnel Kiln Repairer Comment on above: Performed By: #### C MP, CBCAD #### [facility] [address], [place] [id number] Albumin/Globulin [Mass ratio] 2.7 {ratio} High 1.0-2.5 [facility] Specialist Comment on above: Performed By: #### C MP, CBCAD #### [facility] [address], [place] [id number] ALP [Catalytic activity/Vol] 74 U/L Normal 40-129 [facility] Specialist Comment on above: Performed By: #### C MP, CBCAD #### [facility] [address], [place] [id number] ALT [Catalytic activity/Vol] 55 U/L High 9-46 [facility] Specialist Comment on above: Result Comment: 04/27 Female reference range changed. Performed By: #### C JOSE ANTONIO, CBCAD #### [facility] [address], [place] [id number] Anion gap [Moles/Vol] 16 mmol/L Normal 12-20 [facility] Comment on above: Result Comment: Effe ctive 06/02/2019 reference range changed. Performed By: #### C JOSE ANTONIO, CBCAD #### [facility] [address], [place] [id number] AST [Catalytic activity/Vol] 39 U/L Normal 10-40 [facility] Specialist Comment on above: Performed By: #### C JOSE ANTONIO, CBCAD #### [facility] [address], [place] [id number] BUN/CREA 13 Ratio Normal 6-22 [facility] Comment on above: Performed By: #### C MP, CBCAD #### [facility] [address], [place] [id number] Calcium [Mass/Vol] 9.0 mg/dL Normal 8.6-10.2 [facility] Comment on above: Performed By: #### C MP, CBCAD #### [facility] [address], [place] [id number] Chloride [Moles/Vol] 107 mmol/L Normal 98-107 [facility] Specialist Comment on above: Performed By: #### C MP, CBCAD #### [facility] [address], [place] [id number] CO2 [Moles/Vol] 20 mmol/L Normal 20-31 [facility] Specialist Comment on above: Performed By: #### C MP, CBCAD #### [facility] [address], [place] [id number] Creatinine [Mass/Vol] 1.0 mg/dL Normal 0.7-1.4 [facility] Specialist Comment on above: Performed By: #### C MP, CBCAD #### [facility] [address], [place] [id number] eGFRAA 94 mL/min/1.73m2 Normal >60 [facility] Specialist Comment on above: Performed By: #### C MP, CBCAD #### [facility] [address], [place] [id number] eGFRNAA 78 mL/min/1.73m2 Normal >60 [facility] Specialist Comment on above: Performed By: #### C MP, CBCAD #### [facility] [address], [place] [id number] Globulin (S) [Mass/Vol] 1.7 g/dL Low 1.9-3.7 [facility] Specialist Comment on above: Performed By: #### C MP, CBCAD #### [facility] [address], [place] [id number] Glucose [Mass/Vol] 121 mg/dL High 65-99 [facility] Tunnel Kiln Repairer Comment on above: Result Comment: For FASTING Glucose --- ADA reference ranges: Normal 65-99 mg/dl Prediabetes 100-125 Diabetes >/= 126 Performed By: #### C MP, CBCAD #### [facility] [address], [place] [id number] Potassium [Moles/Vol] 4.2 mmol/L Normal 3.5-5.5 [facility] Specialist Comment on above: Performed By: #### C MP, CBCAD #### [facility] [address], [place] [id number] Protein [Mass/Vol] 6.3 g/dL Normal 6.1-8.1 [facility] Tunnel Kiln Repairer Comment on above: Performed By: #### C MP, CBCAD #### [facility] [address], [place] [id number] Sodium [Moles/Vol] 139 mmol/L Normal 135-146 [facility] Comment on above: Performed By: #### C MP, CBCAD #### [facility] [address], [place] [id number] TBIL <0.3 Normal [facility] Comment on above: Performed By: #### C MP, CBCAD #### [facility] [address], [place] [id number] Urea nitrogen [Mass/Vol] 12 mg/dL Normal 7-25 [facility] Comment on above: Performed By: #### C MP, CBCAD #### [facility] [address], [place] [id number] Microalbumin (with Creat)on 07-29-2021 mALB <1.2 Low [facility] Comment on above: Result Comment: Unab le to calculate mALB/Crea ratio, mALB is <1.2 mg/dL mALB reference range not established. Performed By: #### m ALBC #### [facility] [address], [place] [id number] UCREA 85 mg/dL Normal 39-259 [facility] Comment on above: Performed By: #### m ALBC #### [facility] [address], [place] [id number] Prostatic Specific Antigen, Totalon 07-29-2021 TPSA 2.330 ng/mL Normal <4.000 [facility] Comment on above: Result Comment: PSA Test Method: ECLIA/Brandi e 601 Performed By: #### P SA #### [facility] [address], [place] [id number] Q - URINALYSIS,COMPLETEon Appearance (U) CLEAR Normal CLEAR [facility] Specialist Comment on above: Order Comment: [facility] performed at: [employer], [employer] [facility], [address], [address] [place] [address], [place], [address], Surveillance Systems Analyst: Rafi Agustin MD [facility] Collection Date/Time: [facility] Results Received Date/Time: [facility] Reported Date/Time: [id number] Performed By: #### 3 4F #### [facility] [address] [place] [address] BACTERIA NONE SEEN Normal NONE SEEN [facility] Tunnel Kiln Repairer Comment on above: Order Comment: [facility] performed at: [employer], [employer] [facility], [address], [address] [place] [address], [address] [place] [address], Surveillance Systems Analyst: Rafi Agustin MD [facility] Date/Time: [facility] Results Received Date/Time: [facility] Reported Date/Time: Performed By: #### 3 4F #### [facility] [address] [place] [address] Bilirubin Ql (U) Negative Normal NEGATIVE [facility] Tunnel Kiln Repairer Comment on above: Order Comment: [facility] performed at: [employer], [employer] [facility], [address] [place] [address], [address] [place] [address], Surveillance Systems Analyst: Rafi Agustin MD [facility] Date/Time: [facility] Results Received Date/Time: [facility] Reported Date/Time: Performed By: #### 3 4F #### [facility] [address] [place] [address] Color (U) YELLOW Normal YELLOW [facility] Tunnel Kiln Repairer Comment on above: Order Comment: [facility] performed at: [facility], [employer] [facility], [address], [address] [place] [address], [address] [place] [address], Surveillance Systems Analyst: Rafi Agustin MD [facility] Date/Time: [facility] Results Received Date/Time: [facility] Reported Date/Time: Performed By: #### 3 4F #### [facility] [address] [place] [address] Glucose Ql (U) Negative Normal NEGATIVE [facility] Tunnel Kiln Repairer Comment on above: Order Comment: [facility] performed at: [facility], [employer] [facility], [address] [place] [address], [address] [place] [address], Surveillance Systems Analyst: Rafi Agustin MD [facility] Date/Time: [facility] Results Received Date/Time: [facility] Reported Date/Time: Performed By: #### 3 4F #### [facility] [address] [place] [address] HYALINE CAST NONE SEEN Normal NONE SEEN [facility] Tunnel Kiln Repairer Comment on above: Order Comment: [facility] performed at: [employer], [employer] [facility], [address] [place] [address], [address] [place] [address], [address] [place] [address], Surveillance Systems Analyst: Rafi Agustin MD [facility] Date/Time: [facility] Results Received Date/Time: [facility] Reported Date/Time: Performed By: #### 3 4F #### [facility] [address] [place] [address] Ketones Ql (U) Negative Normal NEGATIVE [facility] Specialist Comment on above: Order Comment: [facility] performed at: [employer], [employer] [facility], [address] [facility], [address] [place] [address], [address] [place] [address], Surveillance Systems Analyst: Rafi Agustin MD [facility] Date/Time: [facility] Results Received Date/Time: [facility] Reported Date/Time: Performed By: #### 3 4F #### [facility] [address] [place] [address] Leukocyte esterase Test strip Ql (U) Negative Normal NEGATIVE [facility] Specialist Comment on above: Order Comment: [facility] performed at: [employer], [employer] [facility], [address] [facility], [address] [place] [address], [address] [place] [address], Surveillance Systems Analyst: Rafi Agustin MD [facility] Date/Time: [facility] Results Received Date/Time: [facility] Reported Date/Time: Performed By: #### 3 4F #### [facility] [address] [place] [address] Nitrite Ql (U) Negative Normal NEGATIVE [facility] Specialist Comment on above: Order Comment: [facility] performed at: [employer], [employer] [facility], [address] [place] [address], [address] [place] [address], [address] [place] [address], Surveillance Systems Analyst: Rafi Agustin MD [facility] Date/Time: [facility] Results Received Date/Time: [facility] Reported Date/Time: Performed By: #### 3 4F #### [facility] [address] [place] [address] OCCULT BLOOD Negative Normal NEGATIVE [facility] Tunnel Kiln Repairer Comment on above: Order Comment: [facility] performed at: [employer], [employer] [facility], [address] [place] [address], [address] [place] [address], [address] [place] [address], Surveillance Systems Analyst: Rafi Agustin MD [facility] Date/Time: [facility] Results Received Date/Time: [facility] Reported Date/Time: Performed By: #### 3 4F #### [facility] [address] [place] [address] pH (U) 6.5 [pH] Normal 5.0-8.0 [facility] Tunnel Kiln Repairer Comment on above: Order Comment: [facility] performed at: [employer], [employer] [facility], [address] [facility], [address] [place] [address], [address] [place] [address], Surveillance Systems Analyst: Rafi Agustin MD [facility] Date/Time: [facility] Results Received Date/Time: [facility] Reported Date/Time: Performed By: #### 3 4F #### [facility] [address] [place] [address] Protein Ql (U) Negative Normal NEGATIVE [facility] Tunnel Kiln Repairer Comment on above: Order Comment: [facility] performed at: [employer], [employer] [facility], [address] [facility], [address] [place] [address], [address] [place] [address], Surveillance Systems Analyst: Rafi Agustin MD [facility] Date/Time: [facility] Results Received Date/Time: [facility] Reported Date/Time: Performed By: #### 3 4F #### [facility] [address] [place] [address] RBC NONE SEEN Normal < OR = 2 [facility] Tunnel Kiln Repairer Comment on above: Order Comment: [facility] performed at: [employer], [employer] [facility], [address] [place] [address], [address] [place] [address], [address] [place] [address], Surveillance Systems Analyst: Rafi Agustin MD [facility] Date/Time: [facility] Results Received Date/Time: [facility] Reported Date/Time: Performed By: #### 3 4F #### [facility] [address] [place] [address] Specific gravity (U) [Rel density] 1.012 Normal 1.001-1.035 [facility] Tunnel Kiln Repairer Comment on above: Order Comment: [facility] performed at: [employer], [employer] [facility], [address] [place] [address], [address] [place] [address], [address] [place] [address], Surveillance Systems Analyst: Rafi Agustin MD [facility] Date/Time: [facility] Results Received Date/Time: [facility] Reported Date/Time: Performed By: #### 3 4F #### [facility] [address] [place] [address] SQUAMOUS EPITHELIAL CELLS NONE SEEN Normal < OR = 5 [facility] Tunnel Kiln Repairer Comment on above: Order Comment: [facility] performed at: [employer] [facility], [address] [facility], [address] [place] [address], [address] [place] [address], Surveillance Systems Analyst: Rafi Agustin MD [facility] Date/Time: [facility] Results Received Date/Time: [facility] Reported Date/Time: Performed By: #### 3 4F #### [facility] [address] [facility] [place] [address] WBC NONE SEEN Normal < OR = 5 [facility] Tunnel Kiln Repairer Comment on above: Order Comment: [facility] performed at: [employer], [address], [address] [facility], [place], [address], Surveillance Systems Analyst: Rafi Agustin MD [facility] Date/Time: [facility] Results Received Date/Time: [facility] Reported Date/Time: Performed By: #### 3 4F #### [facility] [address] [place] [address] No Panel Information [facility] Vital Signs Date Time Vital Sign Value Performing Clinician Facility 09-24-2024 13:29-0400 Body height 172.7 cm Sally Risaliti STAIN WIPER Work Phone: [facility] 09-24-2024 13:29-0400 Body mass index (BMI) [Ratio] 36.64 kg/m2 Sally Risaliti STAIN WIPER Work Phone: [facility] 09-24-2024 13:29-0400 Body weight 109.32 kg Sally Risaliti STAIN WIPER Work Phone: [facility] 09-24-2024 13:29-0400 Diastolic blood pressure 64 mm[Hg] Sally Risaliti STAIN WIPER Work Phone: [facility] 09-24-2024 13:29-0400 Heart rate 79 /min Sally Risaliti STAIN WIPER Work Phone: [facility] 09-24-2024 13:29-0400 SaO2% (BldA) [Mass fraction] 96 % Sally Risaliti STAIN WIPER Work Phone: [facility] 09-24-2024 13:29-0400 Systolic blood pressure 130 mm[Hg] Sally Risaliti STAIN WIPER Work Phone: [facility] 07-02-2024 09:14-0500 Body height 172.7 cm Sally Risaliti STAIN WIPER Work Phone: [facility] 07-02-2024 09:14-0500 Body mass index (BMI) [Ratio] 35.88 kg/m2 Sally Risaliti STAIN WIPER Work Phone: [facility] 07-02-2024 09:14-0500 Body weight 107.05 kg Sally Risaliti STAIN WIPER Work Phone: [facility] 07-02-2024 09:14-0500 Diastolic blood pressure 86 mm[Hg] Sally Risaliti STAIN WIPER Work Phone: [facility] 07-02-2024 09:14-0500 Heart rate 71 /min Sally Risaliti STAIN WIPER Work Phone: [facility] 07-02-2024 09:14-0500 SaO2% (BldA) [Mass fraction] 98 % Sally Risaliti STAIN WIPER Work Phone: [facility] 07-02-2024 09:14-0500 Systolic blood pressure 138 mm[Hg] Sally Risaliti STAIN WIPER Work Phone: [facility] 06-23-2024 14:52-0500 Respiratory rate 16 /min John BAPTISTE [facility] 05-15-2024 08:53-0500 Body height 172.7 cm Rene Cortez MD Work Phone: [facility] 05-15-2024 08:53-0500 Body mass index (BMI) [Ratio] 36.28 kg/m2 Rene Cortez MD Work Phone: [facility] 05-15-2024 08:53-0500 Body weight 108.23 kg Rene Cortez MD Work Phone: [facility] 05-15-2024 08:53-0500 Diastolic blood pressure 66 mm[Hg] Rene Cortez MD Work Phone: [facility] 05-15-2024 08:53-0500 Heart rate 60 /min Rene Cortez MD Work Phone: [facility] 05-15-2024 08:53-0500 Systolic blood pressure 124 mm[Hg] Rene Cortez MD Work Phone: [facility] 05-07-2024 17:27-0500 Body mass index (BMI) [Ratio] 36.67 kg/m2 Jessica Busby STAIN WIPER Work Phone: [facility] 05-07-2024 17:27-0500 Body temperature 97.3 [degF] Jessica Busby STAIN WIPER Work Phone: [facility] 05-07-2024 17:27-0500 Body weight 109.41 kg Jessica Busby STAIN WIPER Work Phone: [facility] 05-07-2024 17:27-0500 Diastolic blood pressure 80 mm[Hg] Jessica Busby STAIN WIPER Work Phone: [facility] 05-07-2024 17:27-0500 Heart rate 73 /min Jessica Busby STAIN WIPER Work Phone: [facility] 05-07-2024 17:27-0500 SaO2% (BldA) [Mass fraction] 97 % Jessica Busby STAIN WIPER Work Phone: [facility] 05-07-2024 17:27-0500 Systolic blood pressure 138 mm[Hg] Jessica Busby STAIN WIPER Work Phone: [facility] 04-28-2024 11:59-0500 Blood Pressure Location SU ADRIÁN [facility] 04-28-2024 11:59-0500 Diastolic blood pressure 68 mm[Hg] SU ADRIÁN [facility] 04-28-2024 11:59-0500 Heart rate 63 /min SU ADRIÁN [facility] 04-28-2024 11:59-0500 Systolic blood pressure 111 mm[Hg] SU ADRIÁN [facility] 04-16-2024 10:11-0500 Diastolic blood pressure 72 mm[Hg] SU ADRIÁN [facility] 04-16-2024 10:11-0500 Mean blood pressure 90 mm[Hg] SU HUMPHRIESRY [facility] 04-16-2024 10:11-0500 Systolic blood pressure 126 mm[Hg] SU ADRIÁN [facility] 04-16-2024 09:45-0500 Blood Pressure Location SU COOK [facility] 04-16-2024 09:45-0500 Body temperature 98.6 [degF] SU HUMPHRIESRY [facility] 04-16-2024 09:45-0500 Diastolic blood pressure 80 mm[Hg] SU ADRIÁN [facility] 04-16-2024 09:45-0500 Heart rate 65 /min SU COOK [facility] 04-16-2024 09:45-0500 Systolic blood pressure 148 mm[Hg] SU ADRIÁN [facility] 03-26-2024 13:03-0400 Body height 172.7 cm Sera Flower MD Work Phone: [facility] 03-26-2024 13:03-0400 Body mass index (BMI) [Ratio] 35.88 kg/m2 Sera Flower MD Work Phone: [facility] 03-26-2024 13:03-0400 Body weight 107.05 kg Sera Flower MD Work Phone: [facility] 03-26-2024 13:03-0400 Diastolic blood pressure 80 mm[Hg] Sera Flower MD Work Phone: [facility] 03-26-2024 13:03-0400 Heart rate 77 /min Sera Flower MD Work Phone: [facility] 03-26-2024 13:03-0400 SaO2% (BldA) [Mass fraction] 96 % Sera Flower MD Work Phone: [facility] 03-26-2024 13:03-0400 Systolic blood pressure 122 mm[Hg] Sera Flower MD Work Phone: [facility] 02-27-2024 10:29-0400 Body height 172.7 cm Sally Risaliti STAIN WIPER Work Phone: [facility] 02-27-2024 10:29-0400 Body mass index (BMI) [Ratio] 35.43 kg/m2 Sally Risaliti STAIN WIPER Work Phone: [facility] 02-27-2024 10:29-0400 Body weight 105.69 kg Sally Risaliti STAIN WIPER Work Phone: [facility] 02-27-2024 10:29-0400 Diastolic blood pressure 84 mm[Hg] Sally Risaliti STAIN WIPER Work Phone: [facility] 02-27-2024 10:29-0400 Heart rate 67 /min Sally Risaliti STAIN WIPER Work Phone: [facility] 02-27-2024 10:29-0400 SaO2% (BldA) [Mass fraction] 97 % Sally Risaliti STAIN WIPER Work Phone: [facility] 02-27-2024 10:29-0400 Systolic blood pressure 132 mm[Hg] Sally Risaliti STAIN WIPER Work Phone: [facility] 10-18-2023 09:25-0400 Body height 172.7 cm Rene Cortez MD Work Phone: [facility] 10-18-2023 09:25-0400 Body mass index (BMI) [Ratio] 36.31 kg/m2 Rene Crotez MD Work Phone: [facility] 10-18-2023 09:25-0400 Body weight 108.32 kg Rene Cortez MD Work Phone: [facility] 10-18-2023 09:25-0400 Diastolic blood pressure 76 mm[Hg] Rene Cortez MD Work Phone: [facility] 10-18-2023 09:25-0400 Heart rate 68 /min Rene Cortez MD Work Phone: [facility] 10-18-2023 09:25-0400 Systolic blood pressure 120 mm[Hg] Rene Cortez MD Work Phone: [facility] 06-30-2023 10:23-0500 Body mass index (BMI) [Ratio] 35.28 kg/m2 Hosea Snyder DO Work Phone: [facility] 06-30-2023 10:23-0500 Body temperature 97.81 [degF] Hosea Snyder DO Work Phone: [facility] 06-30-2023 10:23-0500 Body weight 105.23 kg Hosea Snyder DO Work Phone: [facility] 06-30-2023 10:23-0500 Diastolic blood pressure 82 mm[Hg] Hosea Snyder DO Work Phone: [facility] 06-30-2023 10:23-0500 Heart rate 86 /min Hosea Snyder DO Work Phone: [facility] 06-30-2023 10:23-0500 Respiratory rate 18 /min Hosea Snyder DO Work Phone: [facility] 06-30-2023 10:23-0500 SaO2% (BldA) [Mass fraction] 94 % Hosea Snyder DO Work Phone: [facility] 06-30-2023 10:23-0500 Systolic blood pressure 138 mm[Hg] Hosea Snyder DO Work Phone: [facility] 06-14-2023 14:25-0500 Body temperature 97.7 [degF] MD Sera Flower Work Phone: [facility] 06-14-2023 14:25-0500 Diastolic blood pressure 74 mm[Hg] MD Sera Flower Work Phone: [facility] 06-14-2023 14:25-0500 Heart rate 78 /min MD Sera Flower Work Phone: [facility] 06-14-2023 14:25-0500 Respiratory rate 20 /min MD Sera Flower Work Phone: [facility] 06-14-2023 14:25-0500 SaO2% (BldA) [Mass fraction] 95 % MD Sera Flower Work Phone: [facility] 06-14-2023 14:25-0500 Systolic blood pressure 155 mm[Hg] MD Sera Flower Work Phone: [facility] 06-14-2023 11:48-0500 Body height 172.72 cm MD Sera Flower Work Phone: [facility] 06-14-2023 11:48-0500 Body weight 108.9 kg MD Sera Flower Work Phone: [facility] 03-23-2023 09:34-0400 Body height 172.7 cm Rene Cortez MD Work Phone: [facility] 03-23-2023 09:34-0400 Body mass index (BMI) [Ratio] 35.12 kg/m2 Rene Cortez MD Work Phone: [facility] 03-23-2023 09:34-0400 Body weight 104.78 kg Rene Cortez MD Work Phone: [facility] 03-23-2023 09:34-0400 Diastolic blood pressure 72 mm[Hg] Rene Cortez MD Work Phone: [facility] 03-23-2023 09:34-0400 Heart rate 60 /min Rene Cortez MD Work Phone: [facility] 03-23-2023 09:34-0400 Systolic blood pressure 128 mm[Hg] Rene Cortez MD Work Phone: [facility] 09-07-2022 11:31-0400 Body height 172.72 cm Sera Flower Work Phone: JX-Ywgntdwhsb-Nuwzs daniel 250 DO Work Phone: 09-07-2022 11:31-0400 Body mass index (BMI) [Ratio] 36.8 kg/m2 Sera Flower Work Phone: EP-Qtvmnsnnvq-Udqsk daniel 250 DO Work Phone: 09-07-2022 11:31-0400 Body surface area Derived from formula 2.22 m2 Sera Flower Work Phone: DR-Xpfdliwcmy-Qaomm daniel 250 DO Work Phone: 09-07-2022 11:31-0400 Body weight 109.77 kg Sera Flower Work Phone: GQ-Fyxveyhgfd-Yvobk daniel 250 DO Work Phone: 09-07-2022 11:31-0400 Diastolic blood pressure 68 mm[Hg] Sera Flower Work Phone: FU-Pjofbteueg-Osyun daniel 250 DO Work Phone: 09-07-2022 11:31-0400 Heart rate 76 /min Sera Flower Work Phone: CI-Fwkdmfkqks-Aqhii daniel 250 DO Work Phone: 09-07-2022 11:31-0400 Systolic blood pressure 124 mm[Hg] Sera Flower Work Phone: RF-Gmbanygywr-Bodtd daniel 250 DO Work Phone: 09-05-2021 14:04-0400 Body height 172.72 cm Sera Flower Work Phone: -[facility] 250 DO Work Phone: 09-05-2021 14:04-0400 Body mass index (BMI) [Ratio] 36.49 kg/m2 Sera Flower Work Phone: -[facility] 250 DO Work Phone: 09-05-2021 14:04-0400 Body surface area Derived from formula 2.21 m2 Sera Flower Work Phone: [facility] 250 DO Work Phone: 09-05-2021 14:04-0400 Body weight 108.86 kg Sera Flower Work Phone: [facility] 250 DO Work Phone: 09-05-2021 14:04-0400 Diastolic blood pressure 82 mm[Hg] Sera Flower Work Phone: [facility] 250 DO Work Phone: 09-05-2021 14:04-0400 Heart rate 70 /min Sera Flower Work Phone: [facility] [facility] [facility] DO Work Phone: 09-05-2021 14:04-0400 Systolic blood pressure 132 mm[Hg] Sera Flower Work Phone: [facility] 250 DO Work Phone: Encounters Encounter Date Encounter Type Care Provider Facility Start: 12-02-2024 ambulatory John Hauser WELCH Facility :[facility] Start: 09-24-2024 End: 09-24-2024 Office outpatient visit 25 minutes Sally Ba STAIN WIPER Work Phone: [facility] Comment on above: Gastroesophageal ref lux disease without esophagitis (Primary Dx); Essential hypertension (CMS/HCC); Pure hypercholesterolemia (CMS/HCC); Chronic systolic (congestive) heart failure; Prediabetes; Coronary artery disease involving [place] coronary artery of [place] heart without angina pectoris (CMS/HCC); Severe persistent asthma, uncomplicated (CMS/HCC); Elevated PSA; BMI 36.0-36.9,adult; Morbid (severe) obesity due to excess calories (CMS/HCC); Medicare annual wellness visit, subsequent; ACP (advance care planning) Start: 09-24-2024 End: 09-24-2024 Patient encounter procedure Sallycory Harrisaliti STAIN WIPER Work Phone: [facility] Start: 09-24-2024 End: 09-24-2024 ambulatory SALLY R RISALITI Not Available Start: 08-26-2024 End: 08-26-2024 ambulatory John BAPTISTE Facility: [place] Start: 08-18-2024 End: 08-18-2024 ambulatory Yasemin X Fabian Facility: [place] Start: 08-15-2024 End: 08-15-2024 ambulatory John BAPTISTE Facility:[facility] Start: 08-08-2024 End: 08-08-2024 ambulatory John BAPTISTE Facility:[facility] Start: 08-08-2024 End: 08-08-2024 Patient encounter procedure John BAPTISTE [facility] Start: 07-17-2024 End: 07-17-2024 Bamboo flowsheet Marybeth Long MD Work Phone: [facility] Start: 07-17-2024 End: 07-17-2024 Bamboo flowsheet Marybeth Long MD Work Phone: [facility] Start: 07-17-2024 End: 07-17-2024 Office outpatient new 45 minutes Marybeth Long MD Work Phone: [facility] Comment on above: Epidermal inclusion cyst (Primary Dx); Erythema intertrigo Start: 07-17-2024 End: 07-17-2024 ambulatory MARYBETH LONG Not Available Start: 07-02-2024 End: 07-02-2024 Office outpatient visit 25 minutes Sally Loan Harrisaliti STAIN WIPER Work Phone: [facility] Comment on above: Chronic obstructive pulmonary disease, unspecified COPD type (CMS/HCC) (Primary Dx); Bronchiectasis without complication (CMS/HCC); Rash; Skin lesion of back; Sebaceous cyst Start: 07-02-2024 End: 07-02-2024 ambulatory SALLY R RISALITI Not Available Start: 06-23-2024 End: 06-23-2024 ambulatory John BAPTISTE Facility:[facility] [place] Start: 06-23-2024 End: 06-23-2024 Patient encounter procedure John BAPTISTE [facility] [place] Start: 05-15-2024 End: 05-15-2024 Office outpatient visit 25 minutes Rene Cortez MD Work Phone: [facility] Comment on above: Coronary artery dise ase involving [place] coronary artery of [place] heart without angina pectoris (Primary Dx); Essential hypertension; Ischemic cardiomyopathy; Mixed hyperlipidemia; Status post coronary artery stent placement; Former smoker; BMI 36.0-36.9,adult; Class 2 obesity Start: 05-15-2024 End: 05-15-2024 ambulatory RENE Porter [facility] Start: 05-07-2024 End: 05-07-2024 ambulatory JESSICA BUSBY Not Available Start: 05-07-2024 End: 05-07-2024 Office outpatient visit 15 minutes Jessica Busby NP Work Phone: [facility] Comment on above: Non-recurrent acute serous otitis media of right ear (Primary Dx) Start: 04-28-2024 End: 04-28-2024 ambulatory SU COOK [place] [place] Start: 04-28-2024 End: 04-28-2024 Patient encounter procedure SU COOK [facility] [place] Start: 04-25-2024 End: 04-25-2024 Lab Drop off SU COOK [facility] Start: 04-25-2024 End: 04-25-2024 ambulatory SU COOK Facility:[facility] Start: 04-25-2024 End: 04-25-2024 Patient encounter procedure SU COOK [facility] Start: 04-16-2024 End: 04-16-2024 ambulatory SERA FLOWER Facility:[facility] [place] Start: 04-16-2024 End: 04-16-2024 Patient encounter procedure SU COOK [facility] [place] Start: 03-26-2024 End: 03-26-2024 Office outpatient visit 25 minutes Sera Flower MD Work Phone: [facility] Comment on above: Essential hypertensi on (CMS/HCC) (Primary Dx); Chronic systolic congestive heart failure (CMS/HCC); Coronary artery disease involving [place] coronary artery of [place] heart without angina pectoris (CMS/HCC); Chronic obstructive pulmonary disease, unspecified COPD type (CMS/HCC); Pure hypercholesterolemia (CMS/HCC); Prediabetes; Elevated PSA; Benign prostatic hyperplasia without urinary obstruction; Bacterial pneumonia; Sinus drainage Start: 03-26-2024 End: 03-26-2024 ambulatory SERA FLOWER Not Available Start: 03-05-2024 ambulatory SU COOK Facility : [place] Start: 02-27-2024 End: 02-27-2024 Transitional care manage srvc 7 day discharge Sally Ba NP Work Phone: [facility] Comment on above: Sepsis, due to unspe cified organism, unspecified whether acute organ dysfunction present (CMS/HCC) (Primary Dx); Pneumonia of right middle lobe due to infectious organism; Hyponatremia; Essential hypertension (CMS/HCC); Chronic systolic congestive heart failure (CMS/HCC); Coronary artery disease involving [place] coronary artery of [place] heart without angina pectoris (CMS/HCC); Gastroesophageal reflux disease without esophagitis; Benign prostatic hyperplasia without urinary obstruction Start: 02-27-2024 End: 02-27-2024 ambulatory SALLY BA Not Available Start: 02-18-2024 End: 02-19-2024 Clinisync Result Encounter Shaikh Balwinder SHELLEY Work Phone: [facility] External Department Unsolicited Start: 02-18-2024 End: 02-19-2024 [...] Unsolicited Start: 2024 End: 2024 ambulatory BENJY ALAS Not Available Start: 10-18-2023 End: 10-18-2023 Office outpatient visit 25 minutes Rene Cortez MD Work Phone: [facility] Comment on above: Coronary artery dise ase involving [place] coronary artery of [place] heart without angina pectoris (Primary Dx); Essential hypertension; Mixed hyperlipidemia; Ischemic cardiomyopathy; Status post coronary artery stent placement; Class 2 obesity with body mass index (BMI) of 35.0 to 35.9 in adult, unspecified obesity type, unspecified whether serious comorbidity present; Former smoker Start: 10-18-2023 End: 10-18-2023 ambulatory WALKER M [facility] Start: 06-30-2023 End: 06-30-2023 Office outpatient visit 25 minutes Hosea Snyder DO Work Phone: [facility] Comment on above: Acute exacerbation o f chronic obstructive pulmonary disease (CMS/HCC) (Primary Dx) Start: 06-14-2023 End: 06-14-2023 Emergency department patient visit Jasper Gross Facility:[facility] Start: 06-14-2023 End: 06-14-2023 Emergency department patient visit MD Sera Flower Work Phone: [facility] Work Phone: Start: 03-23-2023 End: 03-23-2023 Office outpatient visit 25 minutes Rene Cortez MD Work Phone: [facility] Comment on above: Coronary artery dise ase involving [place] coronary artery of [place] heart without angina pectoris; Essential hypertension; Mixed hyperlipidemia; Ischemic cardiomyopathy; Status post coronary artery stent placement; Class 2 obesity with body mass index (BMI) of 35.0 to 35.9 in adult, unspecified obesity type, unspecified whether serious comorbidity present Start: 02-06-2023 Other Sera Flower Work Phone: [facility] 250 DO Work Phone: Start: 02-05-2023 End: 02-05-2023 ambulatory Rene Cortez Facility:[facility] Start: 02-05-2023 End: 02-05-2023 ambulatory MD Sera Flower Work Phone: [facility] Work Phone: Start: 02-05-2023 End: 02-05-2023 Patient encounter procedure MD Sera Flower Work Phone: [facility]Electrodiagnostic s Work Phone: Start: 02-05-[address] Sera Flower Facility:[id number] Start: 01-30-2023 AUDIT Sera Flower Work Phone: [facility] 600 DO Work Phone: Start: 01-15-2023 Other Sera Flower Work Phone: [facility] 250 DO Work Phone: Start: 01-12-2023 Chart Update Sera Flower Work Phone: [facility] 250 DO Work Phone: Start: 01-04-[address] Sera Flower Facility:[id number] Start: 01-03-[address] Sera Flower Facility:[id number] Start: 11-14-2022 End: 11-14-2022 ambulatory DEANDRA BENDER Facility:[facility] Start: 11-14-2022 End: 11-14-2022 Patient encounter procedure Deandra Bender MD Work Phone: Ophthalmology Comment on above: Clonic hemifacial sp asm, right (Primary Dx) Start: 09-07-2022 Office outpatient vi sit 25 minutes Sera Flower Work Phone: [facility] 250 DO Work Phone: Start: 09-07-2022 ambulatory Rene Oropezaim Facility :[facility] Start: 08-08-2022 End: 08-08-2022 ambulatory DEANDRA NAPOLEON Facility:[facility] Start: 08-08-2022 End: 08-08-2022 Patient encounter procedure Deandra Bender MD Work Phone: Ophthalmology Comment on above: Clonic hemifacial sp asm, right (Primary Dx) Start: 06-21-2022 Telephone encounter Deandra Bender MD Work Phone: [facility] [place] Comment on above: Orders Start: 06-21-2022 End: 06-21-2022 ambulatory DEANDRA BENDER Facility:[facility] Start: 06-21-2022 End: 06-21-2022 Patient encounter procedure Deandra Bender MD Work Phone: Ophthalmology Comment on above: Clonic hemifacial sp asm, right (Primary Dx); Paralytic strabismus; Jada's syndrome Start: 05-01-2022 End: 05-01-2022 ambulatory MAU RANDLE Facility:[facility] Start: 05-01-2022 End: 05-01-2022 Patient encounter procedure Mau Randle OD Work Phone: Ophthalmology Comment on above: Eyelid myokymia (Velma maren Dx); Dry eye syndrome of both eyes; Hyperopia of both eyes with astigmatism and presbyopia Start: 09-05-2021 Office outpatient vi sit 25 minutes Sera Flower Work Phone: [facility] 250 DO Work Phone: Procedures Date Procedure Procedure Detail Performing Clinician Start: 06-23-2024 Cystoscopy John BAPTISTE Start: 02-18-2024 GRAM STAIN EVALUATION Shaikh Balwinder [...] Cortez MD Work Phone: Start: 11-14-2022 [facility] innervated facial nrv unil Deandra Bender MD Work Phone: Start: 08-08-2022 [facility] innervated facial nrv unil Evelia Huffman APRN.DESIGNER AND PATTERNMAKER Work Phone: Start: 07-28-2019 Colonoscopy Hosea Snyder DO Work Phone: Colonoscope, device (physical object) SU COOK Hernia repair SU COOK History of placement of stent for coronary [...] Hospital Start: 09-13-2028 Lipid panel Lipid Panel [facility] Start: 08-11-2027 DTaP/Tdap/Td Vaccines (2 - Td or Tdap) DTaP/Tdap/Td Vaccines (2 - Td or Tdap) [facility] Start: 03-30-2025 End: 03-30-2025 Patient encounter procedure 03/30/2025 9:15 AM EST Office Visit [facility] [address] [place] [phone] Sera Flower MD [address] [facility] [address] [place] [address] [facility] Start: 03-23-2025 End: 09-19-2025 CBC W Auto Differential panel - Blood CBC and differential Lab Routine Essential hypertension (CMS/HCC) Expected: 03/23/2025 (Approximate), Expires: 09/19/2025 [facility] Work Phone: Comment on above: Expected: 03/23/2025 (Approximate), Expi res: 09/19/2025 Start: 03-23-2025 End: 09-19-2025 Comprehensive metabolic 2000 panel - Serum or Plasma Comprehensive metabolic panel Lab Routine Essential hypertension (CMS/HCC) Expected: 03/23/2025 (Approximate), Expires: 09/19/2025 [facility] Comment on above: Expected: 03/23/2025 (Approximate), Expi res: 09/19/2025 Start: 03-23-2025 End: 09-19-2025 Hemoglobin a1c with eag Hemoglobin a1c with eag Lab Routine Prediabetes Expected: 03/23/2025 (Approximate), Expires: 09/19/2025 [facility] Comment on above: Expected: 03/23/2025 (Approximate), Expi res: 09/19/2025 Start: 03-23-2025 End: 09-19-2025 Lipid 1996 panel - Serum or Plasma Lipid panel Lab Routine Pure hypercholesterolemia (CMS/HCC) Expected: 03/23/2025 (Approximate), Expires: 09/19/2025 [facility] Comment on above: Expected: 03/23/2025 (Approximate), Expi res: 09/19/2025 Start: 03-23-2025 End: 09-19-2025 Microalbumin/Creatinine panel in random Urine Microalbumin / creatinine urine ratio Lab Routine Essential hypertension (CMS/HCC) Expected: 03/23/2025 (Approximate), Expires: 09/19/2025 [facility] Comment on above: Expected: 03/23/2025 (Approximate), Expi res: 09/19/2025 Start: 03-23-2025 End: 09-19-2025 Urinalysis complete panel - Urine Urinalysis with microscopic Lab Routine Essential hypertension (CMS/HCC) Expected: 03/23/2025 (Approximate), Expires: 09/19/2025 [facility] Comment on above: Expected: 03/23/2025 (Approximate), Expi res: 09/19/2025 Start: 01-06-2025 End: 01-06-2025 Patient encounter procedure 01/06/2025 10:20 AM EDT Office Visit [facility] [address] [address] [place] [address] Rene Cortez MD [address] [facility] [address] [place] [address] [facility] Start: 09-24-2024 End: 12-24-2024 Basic metabolic 1998 panel - Serum or Plasma Basic metabolic panel Lab Routine Chronic systolic (congestive) heart failure Expected: 09/24/2024 (Approximate), Expires: 12/24/2024 [facility] Comment on above: Expected: 09/24/2024 (Approximate), Expi res: 12/24/2024 Start: 09-24-2024 End: 09-24-2024 Patient encounter procedure 09/24/2024 1:30 PM EDT Office Visit [facility] [address] [place] [phone] Sally Ba NP [address] [place] [address] [facility] Start: 09-19-2024 Medicare Annual Wellness (AWV) Medicare Annual Wellness (AWV) [facility] Start: 07-17-2024 End: 07-17-2024 Patient encounter procedure 07/17/2024 10:35 AM EST Office Visit [facility] [address] [place] [phone] Marybeth Long MD [address] [place] [address] Skin lesion of back; Sebaceous cyst [facility] Comment on above: Skin lesion of back; Sebaceous cyst Start: 05-15-2024 End: 05-15-2024 Patient encounter procedure 05/15/2024 9:10 AM EST Office Visit [facility] [address] [place] [phone] Rene Cortez MD [address] [address] [place] [address] [facility] Start: 04-25-2024 End: 02-26-2025 XR Chest 2 Views XR chest 2 views Imaging Routine Pneumonia of right middle lobe due to infectious organism Expected: 04/25/2024, Expires: 02/26/2025 [facility] Work Phone: Comment on above: Expected: 04/25/2024, Expires: Start: 03-26-2024 End: 03-26-2024 Patient encounter procedure 03/26/2024 1:00 PM EDT Office Visit [facility] [address] [place] [phone] Sera Flower MD [address] [place] [address] [facility] Start: 03-20-2024 Echocardiography Echocardiogram [facility] Start: 02-27-2024 End: 02-27-2024 Patient encounter procedure 02/27/2024 10:45 AM EDT Office Visit [facility] [address] [place] [phone] Sally Ba NP [address] [place] [address] [facility] Start: 01-27-2024 COVID-19 Vaccine ( season) COVID-19 Vaccine ( season) [facility] Start: 01-27-2024 Influenza vaccination [facility] Start: 10-18-2023 End: 10-18-2023 Patient encounter procedure 10/18/2023 9:30 AM EDT Office Visit [facility] [address] [place] [address] Rene Cortez MD [address] [place] [address] [facility] Start: 09-20-2023 End: 09-20-2023 Patient encounter procedure 09/20/2023 1:00 PM EDT Office Visit [facility] [address] [place] [phone] Sera Flower MD [address] [place] [address] [facility] Start: 03-23-2023 End: 03-23-2024 Alanine aminotransferase [Enzymatic activity/volume] in Serum or Plasma by With P-5'-P Alanine Aminotransferase Lab Routine Coronary artery disease involving [place] coronary artery of [place] heart without angina pectoris Essential hypertension Mixed hyperlipidemia Ischemic cardiomyopathy Status post coronary artery stent placement Class 2 obesity with body mass index (BMI) of 35.0 to 35.9 in adult, unspecified obesity type, unspecified whether serious comorbidity present Expected: 03/23/2023 (Approximate), Expires: 03/23/2024 [facility] Work Phone: Comment on above: Expected: 03/23/2023 (Approximate), Expi res: 03/23/2024 Start: 03-23-2023 End: 03-23-2024 Aspartate aminotransferase [Enzymatic activity/volume] in Serum or Plasma by With P-5'-P Aspartate Aminotransferase Lab Routine Coronary artery disease involving [place] coronary artery of [place] heart without angina pectoris Essential hypertension Mixed hyperlipidemia Ischemic cardiomyopathy Status post coronary artery stent placement Class 2 obesity with body mass index (BMI) of 35.0 to 35.9 in adult, unspecified obesity type, unspecified whether serious comorbidity present Expected: 03/23/2023 (Approximate), Expires: 03/23/2024 [facility] Work Phone: Comment on above: Expected: 03/23/2023 (Approximate), Expi res: 03/23/2024 Start: 03-23-2023 End: 03-23-2024 Basic metabolic 2000 panel - Serum or Plasma Basic Metabolic Panel Lab Routine Coronary artery disease involving [place] coronary artery of [place] heart without angina pectoris Essential hypertension Mixed hyperlipidemia Ischemic cardiomyopathy Status post coronary artery stent placement Class 2 obesity with body mass index (BMI) of 35.0 to 35.9 in adult, unspecified obesity type, unspecified whether serious comorbidity present Expected: 03/23/2023 (Approximate), Expires: 03/23/2024 [facility] Work Phone: Comment on above: Expected: 03/23/2023 (Approximate), Expi res: 03/23/2024 Start: 03-23-2023 End: 03-23-2024 CBC panel - Blood by Automated count CBC Lab Routine Coronary artery disease involving [place] coronary artery of [place] heart without angina pectoris Essential hypertension Mixed hyperlipidemia Ischemic cardiomyopathy Status post coronary artery stent placement Class 2 obesity with body mass index (BMI) of 35.0 to 35.9 in adult, unspecified obesity type, unspecified whether serious comorbidity present Expected: 03/23/2023 (Approximate), Expires: 03/23/2024 [facility] Service Area Work Phone: Comment on above: Expected: 03/23/2023 (Approximate), Expi res: 03/23/2024 Start: 03-23-2023 End: 03-23-2024 Lipid 1996 panel - Serum or Plasma Lipid Panel Lab Routine Coronary artery disease involving [place] coronary artery of [place] heart without angina pectoris Essential hypertension Mixed hyperlipidemia Ischemic cardiomyopathy Status post coronary artery stent placement Class 2 obesity with body mass index (BMI) of 35.0 to 35.9 in adult, unspecified obesity type, unspecified whether serious comorbidity present Expected: 03/23/2023 (Approximate), Expires: 03/23/2024 [facility] Work Phone: Comment on above: Expected: 03/23/2023 (Approximate), Expi res: 03/23/2024 Start: 03-15-2023 FUV, Provider: Rene Cortez, Status: Pen, Time: 9:20 AM FUV, Provider: Rene Cortez, Status: Pen, Time: 9:20 AM [facility] 250 DO Work Phone: Start: 01-26-2023 COVID-19 Vaccine ( season) COVID-19 Vaccine ( season) [facility] Start: 01-26-2023 Influenza vaccination [facility] Start: 09-07-2022 FUV, Provider: Rene Cortez, Status: Pen, Time: 8:30 AM FUV, Provider: Rene Cortez, Status: Pen, Time: 8:30 AM [facility] 250 DO Work Phone: Start: 08-02-2022 Medicare Annual Wellness Visit Medicare Annual Wellness Visit (AWV) [facility] Start: 05-28-2022 ADVANCE DIRECTIVE DISCUSSION ADVANCE DIRECTIVE DISCUSSION [facility] Start: 05-28-2022 DEPRESSION ASSESSMENT DEPRESSION ASSESSMENT [facility] Start: 01-26-2022 Influenza vaccination INFLUENZA (#1) [facility] Start: 05-28-2021 ADVANCE DIRECTIVE DISCUSSION ADVANCE DIRECTIVE DISCUSSION [facility] Start: 05-28-2021 DEPRESSION ASSESSMENT DEPRESSION ASSESSMENT [facility] Start: 2018 Abdominal aortic aneurysm screening Abdominal Aortic Aneurysm (AAA) Screening [facility] Start: 2018 PNEUMOCOCCAL: 65+ (1 - PCV) PNEUMOCOCCAL: 65+ (1 - PCV) [facility] Start: 02-15-2017 Zoster Vaccines (2 of 3) Zoster Vaccines (2 of 3) [facility] Start: 2013 RSV High Risk: (Elderly (60+) or Population) (1 - Risk 60-74 years 1-dose series) RSV High Risk: (Elderly (60+) or Population) (1 - Risk 60-74 years 1-dose series) [facility] Start: 2013 RSV patients and/or patients aged 60+ years (1 - 1-dose 60+ series) RSV patients and/or patients aged 60+ years (1 - 1-dose 60+ series) [facility] Start: 2003 SHINGRIX VACCINE (1 of 2) SHINGRIX VACCINE (1 of 2) [facility] Start: 1998 COLOGUARD (FIT-DNA) COLOGUARD (FIT-DNA) [facility] Start: 1998 Colonoscopy COLONOSCOPY [facility] Start: 1998 COLORECTAL CANCER SCREENING COLORECTAL CANCER SCREENING [facility] Start: [address] COLONOGRAPHY [facility] Start: 1998 DIABETES SCREEN DIABETES SCREEN [facility] Start: 1998 FECAL OCCULT BLOOD FECAL OCCULT BLOOD [facility] Start: 1998 SIGMOIDOSCOPY SIGMOIDOSCOPY [facility] Start: 01-02-1988 LIPID SCREEN LIPID SCREEN [facility] Start: 01-02-1972 Urine microalbumin profile DTAP,TDAP,TD (1 - Tdap) [facility] Start: 1971 Diabetes mellitus screening Diabetes Screening [facility] Start: 1971 HEPATITIS C SCREENING HEPATITIS C SCREENING [facility] Start: 08-07-1971 Hepatitis C screening Hepatitis C Screening [facility] Start: 1953 COVID-19 VACCINE (#1) COVID-19 VACCINE (#1) [facility] Start: 1953 Creatinine measurement Creatinine Level [facility] Start: 1953 Lipid panel Lipid Panel [facility] Start: 1953 Medicare Annual Wellness Visit Medicare Annual Wellness Visit (AWV) [facility] Start: 1953 Potassium measurement Potassium Level [facility] Start: 1953 Screening for malignant neoplasm of colon [facility] Basic metabolic 1998 panel - Serum or Plasma Basic metabolic panel Lab Routine Hyponatremia Essential hypertension (CMS/HCC) Ordered: 02/27/2024 [facility] Comment on above: Ordered: 02/27/2024 BLOOD CULTURE 1 BLOOD CULTURE 1 Lab Routine 02/15/2024 4:07 PM EDT [facility] BLOOD CULTURE 1 BLOOD CULTURE 1 Lab Routine 02/17/2024 10:40 AM EDT [facility] BLOOD CULTURE 2 BLOOD CULTURE 2 Lab Routine 02/15/2024 4:14 PM EDT [facility] BLOOD CULTURE 2 BLOOD CULTURE 2 Lab Routine 02/17/2024 11:00 AM EDT [facility] LOWER RESPIRATORY CULTURE LOWER RESPIRATORY CULTURE Lab Routine 02/18/2024 7:25 AM EDT [facility] Work Phone: End: 07-21-2023 Mri brain brain stem w/o w/contrast material MRI BRAIN WO/W IVCON Radiology Routine Paralytic strabismus 1 Occurrences starting 06/21/2022 until 07/21/2023 [facility] Work Phone: Comment on above: 1 Occurrences starting 06/21/2022 until 07/21/2023 End: 07-21-2023 Mri orbit face & neck w/o & w/contrast matrl MRI SOFT TISSUE NECK WO/W IVCON Radiology Routine 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 until 07/21/2023 [facility] Work Phone: Comment on above: 1 Occurrences starting 06/21/2022 until 07/21/2023 Patient Education COPD Exacerbation, Adul t ED [facility] Work Phone: Patient referral [facility] Work Phone: PSA, total and free PSA, total a nd free Lab Routine Benign prostatic hyperplasia without urinary obstruction Ordered: 02/27/2024 [facility] Work Phone: Comment on above: Ordered: 02/27/2024 [facility] Immunizations Immunization Date Immunization Notes Care Provider Sharron baron 04-16-2019 Seasonal trivalent influenza vaccine, adjuvanted, preservative free Sera Flower Work Phone: [place] [address] DO Work Phone: 04-16-2019 influenza virus vacc ine, unspecified formulation Rene Cortez MD Work Phone: [facility] 03-28-2019 influenza virus vacc ine, unspecified formulation Sera Flower Work Phone: [place] [address] DO Work Phone: 08-16-2018 influenza virus vacc ine, unspecified formulation John BAPTISTE [facility] 08-16-2018 influenza, seasonal, injectable, preservative free Sera Flower Work Phone: [place] [address] DO Work Phone: 08-16-2018 pneumococcal conjuga te vaccine, 13 valent Sera Flower Work Phone: [place] [address] DO Work Phone: 05-28-2018 pneumococcal polysaccharide vaccine, 23 valent Sera Flower Work Phone: [place] [address] DO Work Phone: 08-10-2017 tetanus toxoid, redu daniel diphtheria toxoid, and acellular pertussis vaccine, adsorbed Sera Flower Work Phone: [place] [address] DO Work Phone: 12-21-2016 zoster vaccine, live Sera Flower Work Phone: [place] [address] DO Work Phone: 09-30-2012 pneumococcal polysaccharide vaccine, 23 valent Sera Flower Work Phone: [place] [address] DO Work Phone: 09-30-2012 pneumococcal vaccine , unspecified formulation Hosea Snyder DO Work Phone: [facility] 05-28-2010 influenza virus vacc ine, unspecified formulation Rene Cortez MD Work Phone: [facility] Work Phone: 03-28-2010 influenza, seasonal, injectable, preservative free Rene Cortez MD Work Phone: [facility] Work Phone: 2007 TD(adult) unspecifie d formulation; Translations: [Td(adult) unspecified formulation] Hosea Snyder DO Work Phone: [facility] influenza virus vacc ine, unspecified formulation Sera Flower Work Phone: [place] [address] DO Work Phone: Comment on above: Mar 20102010 Payers Date Payer Category Payer Private Health Insurance HUMANA HUMANA HMO/POS [id number] 2023-Present [address] [address] [place] [address] [id number] 2023 () [id number] 2023 Self-pay [id number] 2022 [employer] ( and others) [id number] 2022 Medicare (Managed Care) 1.2. [id number] 2022 For Life (TFL) F OR LIFE [id number] 2022 [employer] ( and others) [id number] 2022 Medicare [id number] 2021 [employer] ( and others) [id number] 2021 Unknown 2017 Medicare [id number] 2017 Medicare [id number] 1953 Unknown [id number] 2.16.840.1.823381.3.579.2 .356 1953 Unknown [id number] 2.16.840.1.761444.3.579.2 .356 1953 Unknown [id number] 2.16.840.1.919344.3.579.2 .8 1953 Unknown [id number] 2.16.840.1.282679.3.579.2 .1068 1953 Unknown [id number] 2.16.840.1.849799.3.579.2 .727 1953 Unknown [id number] 2.16.840.1.007373.3.579.2 .727 1953 Unknown [id number] 2.16.840.1.805226.3.579.2 .727 1953 Unknown [id number] 2.16.840.1.986553.3.579.2 .727 1953 Unknown [id number] 2.16.840.1.161508.3.579.2 .1244 1953 Unknown [id number] 2.16.840.1.322040.3.579.2 .1244 1953 Unknown [id number] 2.16.840.1.684551.3.579.2 .7 1953 Unknown [id number] 2.840.1.608534.3.579.2 .72 1953 Unknown [id number] 2.16.840.1.915825.3.579.2 .727 1953 Unknown [id number] 2.840.1.557509.3.579.2 .727 1953 Unknown [id number] 2.16.840.1.003099.3.579.2 .727 1953 Unknown [id number] 2.840.1.016151.3.579.2 .727 1953 Unknown [id number] 2.16.840.1.624621.3.579.2 .1259 1953 Unknown [id number] 2.16.840.1.251628.3.579.2 .1259 1953 Unknown [id number] 2.16.840.1.023923.3.579.2 .1259 1953 Unknown [id number] 2.16840.1.993864.3.579.2 .1259 1953 Unknown [id number] 2.16.840.1.476376.3.579.2 .9 1953 Unknown [id number] 2.16.840.1.542888.3.579.2 .9 1953 Unknown [id number] 2.16.840.1.089120.3.579.2 .1259 [employer] ( and others) [id number] Unknown [id number] 2.16.840.1.185137.3.579.2 .531 Unknown [id number] 2.16.840.1.601163.3.579.2 .531 Social History Date Type Detail Facility Start: 03-23-2023 End: 09-24-2024 No alcohol use No alcohol use [facility] Comment on above: 5 CUPS OF COFFEE ANICETO LY; QUIT IN 1984; Start: 05-01-2022 End: 06-14-2023 Tobacco smoking status [facility] Never smoked tobacco [facility] Start: 05-01-2022 End: 10-18-2023 Tobacco use and exposure Smokeless tobacco non-user [facility] Start: 05-01-2022 End: 11-14-2022 Alcohol intake Ex-drinker (finding) [facility] Start: 1955 Sex Assigned At Not on file [facility] Start: 10-15-2020 End: 02-27-2024 Tobacco smoking status SDIS Ex-smoker (finding) [facility] Start: 1955 Sex Assigned At Male F [facility] End: 05-28-1992 History of tobacco use Current smoker [facility] Work Phone: End: 05-28-1992 History of tobacco use Cigarette Smoker [facility] Work Phone: Start: 03-23-2023 End: 09-24-2024 Alcohol intake Lifetime non-drinker (finding) [facility] Work Phone: Start: 03-23-2023 End: 09-24-2024 Tobacco use panel [facility] Start: 03-13-2023 End: 05-15-2024 Exposure to SARS-CoV-2 (event) Not sure [facility] Start: 03-14-2023 Alcohol Comment caffeine: coff ee 5-6 cups a day [facility] Start: 11-13-2022 Gender identity Identifies as male gender (finding) [facility] Tobacco smoking status Never [facility] Functional Status Date Assessment Result Facility 09-24-2024 Patient Health Quest ionnaire 2 item (PHQ-2) [Reported] [facility] 08-08-2024 Functional Status N/A [facility] 06-23-2024 Functional Status N/A [facility] 04-28-2024 Functional Status N/A [facility] 04-16-2024 Functional Status N/A [facility] Clinical Notes 05-01-2022 to 09-24-2024 Sally Ba NP - 09/24/2024 1:30 PM EDT Note Date & Type Note Facility 09-24-2024 History of Present illness Narrative Images from the original note were not included. Demarcus Calderon is a 69 y.o. male presents with chief complaint of 6 Month Follow Up of Chronic Conditions, Medicare Annual Wellness Visit Subsequent, and ER Follow-up ([facility] 09/22/2024 for CHF. He was advised to resume Lasix, which was discontinued in the past due to low sodium levels.) HPI: History of Present Illness The patient is a 69-year-old male who presents for a 6-month office visit and Medicare wellness. Hyponatremia and Respiratory Distress Hospitalization occurred in 06/2024 due to hyponatremia, leading to the discontinuation of diuretic medication. Respiratory distress due to fluid accumulation prompted a recent emergency room visit 2 days ago, where intravenous diuretic therapy was administered. Improved sleep quality is reported since the incident. He is under the care of Dr. Morgan, a commodity lead, and has resumed his diuretic regimen. - Onset: Hospitalization in 06/2024; recent emergency room visit 2 days ago. - Location: Fluid accumulation causing respiratory distress. - Duration: Improved sleep quality since the incident. - Character: Respiratory distress due to fluid accumulation. - Alleviating Factors: Intravenous diuretic therapy administered. - Timing: Recent emergency room visit 2 days ago. - Severity: Improved sleep quality since the incident. Prediabetes Monitoring Blood work at the [facility] is scheduled for 10/10/2024. He is not currently on any antidiabetic medications and is monitored for prediabetes, with an A1c of 6.3 in 2023. - Timing: Blood work scheduled for 10/10/2024 for the [facility]. - Severity: A1c of 6.3 in 2023. PSA Levels Monitoring Dr. Baptiste, a urologist, is monitoring his prostate-specific antigen (PSA) levels, which improved from 6.0 to 2.3 between last year and 03/2024. - Timing: PSA levels improved between last year and 03/2024. - Severity: PSA levels improved from 6.0 to 2.3. Colonoscopy Referral A referral for a colonoscopy at [facility] has been declined, opting to defer the procedure for a year. Medical History and Vaccinations There is no history of chickenpox, but he has had mumps and measles. The shingles vaccine was administered in 2016. Living Will and Power of Aquaculture Worker A living will and power of [place] attorney are in place. Resuscitation efforts are desired in the event of cardiac arrest, but not if declared brain . Respiratory Support A nebulizer is utilized for respiratory support, with no current issues of shortness of breath, even when climbing stairs. No chest pain is reported, and bowel movements are regular. - Alleviating Factors: Utilizes a nebulizer for respiratory support. - Severity: No current issues of shortness of breath, even when climbing stairs; no chest pain; regular bowel movements. I have reviewed and reconciled the history and medication list with the patient today. CURRENT PCP/CARE TEAM: Patient Care Team: Sera Flower MD as PCP - General (Internal Medicine) Sera Flower MD as PCP - Chip Cortez MD as Referring Physician (Cardiology) Orquidea Shah RN as Registered Nurse (Internal Medicine) Evens Morgan MD as Referring Physician (Pulmonary Disease) John Baptiste MD as Referring Physician (Urology) [facility] (Optometry) Jessica Busby NP as Nurse Practitioner (Family Medicine) Over the past 2 weeks, how often have you been bothered by any of the following problems? Little interest or pleasure in doing things: Not at all Feeling down, depressed, or hopeless: Not at all Patient Health Questionnaire-2 Score: 0 Simon Fall Risk History of Falling, Immediate or Within 3 Months: No Health Risk Assessment Form Do you need help eating, bathing, using the toilet, dressing, or getting around your home?: No Can you prepare your own meals?: Yes Can you do your own housework without help?: Yes Can you shop for groceries or clothes without help?: Yes Do you exercise for about 20 minutes 3 or more days a week?: Yes How confident are you that you can control and manage most of your health problems?: Very confident Can you mange your money, credit cards and accounts, pay bills and taxes?: Yes Vision Screening: Yes, patient sees regular force variation equipment tender/toddler guide Cognitive Screening Self Assessment: No overt cognitive deficiency is apparent by direct observation Three Word Registration: Banana, Loop, Chair Clock Drawing: Normal Clock - 2 Three Word Recall: 2/3 words correct - 2 Total Score (0-5 Points): 4 Pain Assessment Pain Score: 0 - No pain HISTORIES: PAST MEDICAL HISTORY: Past Medical History: Diagnosis Date Asthma BPH (benign prostatic hyperplasia) CAD (coronary artery disease) ([facility]) COPD (chronic obstructive pulmonary disease) ([facility]) Emphysema, unspecified Hypercholesterolemia ([facility]) Hypertensive heart disease SURGICAL HISTORY: Past Surgical History: Procedure Laterality Date COLONOSCOPY 2019 normal CORONARY ANGIOPLASTY WITH STENT PLACEMENT 2009 PROSTATE SURGERY 08/14/2024 urolift SHOULDER SURGERY Right nerve in right shoulder SOCIAL HISTORY: Social History Tobacco Use Smoking status: Former Current packs/day: 0.00 Types: Cigarettes Quit date: 05/28/1992 Years since quittin.3 Vaping Use Vaping status: Never Used Substance Use Topics Alcohol use: Never Comment: caffeine: coffee 5-6 cups a day Drug use: Never Depression: Not at risk (09/24/2024) PHQ-2 PHQ-2 Score: 0 FAMILY HISTORY: Family History Problem Relation Name Age of Onset Dementia Mother Diabetes Mother Aneurysm Father Kidney failure Sibling Heart disease Sibling No Known Problems Son MEDICATIONS: Current Outpatient Medications Medication Instructions albuterol HFA 90 mcg/act inhaler 2 puffs, Inhalation, Every 6 hours PRN albuterol 2.5 mg, Nebulization, Every 8 hours alpha tocopherol (VITAMIN E) 400 Units, Daily carvedilol (COREG) 6.25 mg, Oral, 2 times daily with meals cholecalciferol (VITAMIN D-3) 50 mcg, Daily ezetimibe (ZETIA) 10 mg, Nightly fluticasone (Flonase) 50 MCG/ACT nasal spray 2 sprays, Daily Yqxtouopqtl-Glafptymk-Xljyyo (Trelegy Ellipta) 100-62.5-25 MCG/ACT aerosol powder 1 puff, Inhalation, Daily furosemide (LASIX) 40 mg, Oral, Daily PRN hydrocortisone 2.5 % cream Apply thin layer to affected areas on groin up once or twice daily prn itching. Hold if not itchy. losartan (COZAAR) 50 mg, Daily magnesium oxide [...] Airway constriction PHYSICAL EXAM: Visit Vitals BP 130/64 (BP Location: Left arm, Patient Position: Sitting) Pulse 79 Ht 5' 8 Wt 241 lb SpO2 96% BMI 36.64 kg/m Smoking Status Former BSA 2.29 m BP Readings from Last 3 Encounters: 09/24/24 130/64 07/02/24 138/86 05/07/24 138/80 Wt Readings from Last 3 Encounters: 09/24/24 241 lb 07/02/24 236 lb 05/07/24 241 lb 3.2 oz Physical Exam HENT: Right Ear: Tympanic membrane and external ear normal. Left Ear: Tympanic membrane and external ear normal. Mouth/Throat: Mouth: Mucous membranes are moist. Neck: Thyroid: No thyroid mass or thyromegaly. Vascular: No carotid bruit. Cardiovascular: Rate and Rhythm: Normal rate and regular rhythm. Heart sounds: No murmur heard. No friction rub. No gallop. Pulmonary: Effort: Pulmonary effort is normal. Breath sounds: Normal breath sounds. Abdominal: General: Bowel sounds are normal. Palpations: Abdomen is soft. Tenderness: There is no abdominal tenderness. Musculoskeletal: Right lower leg: No edema. Left lower leg: No edema. Lymphadenopathy: Cervical: No cervical adenopathy. Skin: General: Skin is warm and dry. Neurological: Mental Status: He is alert and oriented to person, place, and time. Psychiatric: Thought Content: Thought content normal. Results Labs - BNP: 361 - Troponin: Not elevated - CBC: Mild anemia - Blood sugar: 125 - A1c: 2023, 6.3 - PSA: 03/2024, 2.3 ASSESSMENT AND PLAN: Assessment & Plan 1. Essential hypertension (CMS/HCC) BP stable. Continue current regimen. Call if numbers are running low or high. - CBC and differential; Future - Comprehensive metabolic panel; Future - Urinalysis with microscopic; Future - Microalbumin / creatinine urine ratio; Future - CBC and differential - Comprehensive metabolic panel - Urinalysis with microscopic - Microalbumin / creatinine urine ratio 2. Pure hypercholesterolemia (CMS/HCC) He is taking Rosuvastatin. Continue current regimen. Encouraged to eat a healthy diet and exercise regularly as able. - Lipid panel; Future - Lipid panel 3. Chronic systolic (congestive) heart failure He was off Lasix bc prior hyponatremia. He had increasing SOB and was hospitalized. - BNP 361. - Re-started on Lasix. - Follow-up with cardiology. - Monitor potassium levels. - Basic metabolic panel; Future - Basic metabolic panel 4. Prediabetes - A1c 6.3 in 2023. - Blood sugar 125. - Blood work scheduled in 6 months to monitor A1c levels. - Hemoglobin a1c with eag; Future - Hemoglobin a1c with eag 5. Coronary artery disease involving [place] coronary artery of [place] heart without angina pectoris (CMS/HCC) Doing well. Denies any anginal symptoms. Continue aggressive risk factor modification. Continue current medications. Call if any problems. 6. Severe persistent asthma, uncomplicated (CMS/HCC) Doing well. Continue current regimen. 7. Gastroesophageal reflux disease without esophagitis (Primary) Doing well. Continue current regimen. 8. Elevated PSA - PSA improved from 6 to 2.3 in 03/2024. - Continued follow-up with urologist, Dr. Baptiste. 9. Body mass index (BMI) 36.0-36.9, adult Encouraged to eat a healthy diet and exercise regularly as able. 10. Morbid (severe) obesity due to excess calories (CMS/HCC) As above. 11. Medicare annual wellness visit, subsequent Patient here for annual Medicare Wellness visit with Soledad Ba NP. Demographics were updated. Self-assessment was completed. Past medical, family, and social history were updated. The medication list, including supplements being taken, was updated. A list of other current medical providers was established/updated. Time was spent discussing health maintenance issues, ordering proper testing, and a schedule was provided regarding recommended screening. We discussed safety issues and fall risk. Depression screening was completed and addressed. Fall screening was completed and addressed. Cognitive function was assessed by direct observation and assessment of ability to perform ADL's and IADL's was done. The current BMI was provided and will continue to be monitored at routine office visits as well. Major risk factors for chronic disease including family history were discussed and a list was provided with the care plan. - Colonoscopy deferred for a year. - No need for new shingles vaccine due to no history of chickenpox. 12. ACP (advance care planning) We also discussed Advanced Directives and code status. Pt has LW/POA. Pt wishes to be a FULL code. Dr. Flower was present in the office at the time of visit today and is supervising patient care. I am following Dr. Flower's established plan of care for the above issues. documented in this encounter [facility] 08-26-2024 Note Patient Education Urology Benign Prostatic Hyperplasia Benign prostatic hyperplasia (BPH) [...] or symptoms? Symptoms of this condition include: ??? Getting up often during the night to urinate. ??? Needing to urinate frequently during the day. ??? Difficulty starting urine flow. ??? Decrease in size and strength of your urine stream. ??? Leaking (dribbling) after urinating. ??? Inability to pass urine. This needs immediate treatment. ??? Inability to completely empty your bladder. ??? Pain when you pass urine. This is more common if there is also an infection. ??? Urinary tract infection (UTI). How is this diagnosed? This condition is diagnosed based on your medical history, a physical exam, and your symptoms. Tests will also be done, such as: ??? A post-void bladder scan. This measures any amount of urine that may remain in your bladder after you finish urinating. ??? A digital rectal exam. In a rectal exam, your health care provider checks your prostate by putting a lubricated, gloved finger into your rectum to feel the back of your prostate gland. This exam detects the size of your gland and any abnormal lumps or growths. ??? An exam of your urine (urinalysis). ??? A prostate specific antigen (PSA) screening. This is a blood test used to screen for prostate cancer. ??? An ultrasound. This test uses sound waves [...] severity of your condition. Treatment may include: ??? Observation and yearly exams. This may be the only treatment needed if your condition and symptoms are mild. ??? Medicines to relieve your symptoms, including: ? Medicines to shrink the prostate. ? Medicines to relax the muscle of the prostate. ??? Surgery in severe cases. Surgery may include: ? Prostatectomy. In this procedure, the prostate tissue is removed completely through an open incision or with a laparoscope or robotics. ? Transurethral resection of the prostate (TURP). In this procedure, a tool is inserted through the opening at the tip of the penis (urethra). It is used to cut away tissue of the inner core of the prostate. The pieces are removed through the same opening of the penis. This removes the blockage. ? Transurethral incision (TUIP). In this procedure, small cuts are made in the prostate. This lessens the prostate's pressure on the urethra. ? Transurethral microwave thermotherapy (TUMT). This procedure uses microwaves to create heat. The heat destroys and removes a small amount of prostate tissue. ? Transurethral needle ablation (TUNA). This procedure uses radio frequencies to destroy and remove a small amount of prostate tissue. ? Interstitial laser coagulation (ILC). This procedure uses a laser to destroy and remove a small amount of prostate tissue. ? Transurethral electrovaporization (TUVP). This procedure uses electrodes to destroy and remove a small amount of prostate tissue. ? Prostatic urethral lift. This procedure inserts an implant to push the lobes of the prostate away from the urethra. Follow these instructions at home: ??? Take pfqy-ari-ioiwwcl and prescription medicines only as told by your health care provider. ??? Monitor your symptoms for any changes. Contact your health care provider with any changes. ??? Avoid drinking large amounts of liquid before going to bed or out in public. ??? Avoid or reduce how much caffeine or alcohol you drink. ??? Give yourself time when you urinate. ??? Keep all follow-up visits. This is important. Contact a health care provider if: ??? You have unexplained back pain. ??? Your symptoms do not get (more content not included)... [facility] 08-18-2024 Note Patient Education Urology Benign Prostatic Hyperplasia Benign prostatic hyperplasia (BPH) [...] or symptoms? Symptoms of this condition include: ??? Getting up often during the night to urinate. ??? Needing to urinate frequently during the day. ??? Difficulty starting urine flow. ??? Decrease in size and strength of your urine stream. ??? Leaking (dribbling) after urinating. ??? Inability to pass urine. This needs immediate treatment. ??? Inability to completely empty your bladder. ??? Pain when you pass urine. This is more common if there is also an infection. ??? Urinary tract infection (UTI). How is this diagnosed? This condition is diagnosed based on your medical history, a physical exam, and your symptoms. Tests will also be done, such as: ??? A post-void bladder scan. This measures any amount of urine that may remain in your bladder after you finish urinating. ??? A digital rectal exam. In a rectal exam, your health care provider checks your prostate by putting a lubricated, gloved finger into your rectum to feel the back of your prostate gland. This exam detects the size of your gland and any abnormal lumps or growths. ??? An exam of your urine (urinalysis). ??? A prostate specific antigen (PSA) screening. This is a blood test used to screen for prostate cancer. ??? An ultrasound. This test uses sound waves [...] severity of your condition. Treatment may include: ??? Observation and yearly exams. This may be the only treatment needed if your condition and symptoms are mild. ??? Medicines to relieve your symptoms, including: ? Medicines to shrink the prostate. ? Medicines to relax the muscle of the prostate. ??? Surgery in severe cases. Surgery may include: ? Prostatectomy. In this procedure, the prostate tissue is removed completely through an open incision or with a laparoscope or robotics. ? Transurethral resection of the prostate (TURP). In this procedure, a tool is inserted through the opening at the tip of the penis (urethra). It is used to cut away tissue of the inner core of the prostate. The pieces are removed through the same opening of the penis. This removes the blockage. ? Transurethral incision (TUIP). In this procedure, small cuts are made in the prostate. This lessens the prostate's pressure on the urethra. ? Transurethral microwave thermotherapy (TUMT). This procedure uses microwaves to create heat. The heat destroys and removes a small amount of prostate tissue. ? Transurethral needle ablation (TUNA). This procedure uses radio frequencies to destroy and remove a small amount of prostate tissue. ? Interstitial laser coagulation (ILC). This procedure uses a laser to destroy and remove a small amount of prostate tissue. ? Transurethral electrovaporization (TUVP). This procedure uses electrodes to destroy and remove a small amount of prostate tissue. ? Prostatic urethral lift. This procedure inserts an implant to push the lobes of the prostate away from the urethra. Follow these instructions at home: ??? Take mtqo-atx-binofxh and prescription medicines only as told by your health care provider. ??? Monitor your symptoms for any changes. Contact your health care provider with any changes. ??? Avoid drinking large amounts of liquid before going to bed or out in public. ??? Avoid or reduce how much caffeine or alcohol you drink. ??? Give yourself time when you urinate. ??? Keep all follow-up visits. This is important. Contact a health care provider if: ??? You have unexplained back pain. ??? Your symptoms do not get (more content not included)... [facility] 08-08-2024 Hospital Discharge instructions Patient Education 08/08/2024 13:12:22 EU - Urolift Discharge Instructions (Custom) Urolift Some men may experience discomfort after the procedure. On occasion, some bloody discharge may be apparent from the penis. You may have soreness in the lower abdomen, and it may be uncomfortable to sit. You may experience the need to urinate more frequently and with greater urgency. These are all normal reactions to the procedure. It is important to take care of yourself the next couple of days to facilitate a speedy recovery. The following are some suggestions: -Have someone drive you home after the procedure. -Drink plenty of water; 8 10oz glasses per day. If your urine looks dark yellow, you are probably not drinking enough water. -Take your medications as prescribed -If you have a catheter placed, do not engage in strenuous activity until your catheter has been removed. You may take a shower but avoid a bath while you have a catheter. - In the event you have to go home with a catheter, you may notice leakage of urine and/or yellow discharge/blood around the catheter. This is normal and no cause to be alarmed; UNLESS you are having significant pain associated with the leakage or the leakage does not stop. -You can use Tylenol or Advil for discomfort. Use AZO (over the counter) for burning with urination It is normal to have some blood in your urine after surgery. One day it may be clear, and the next day it might be bloody. Do not be alarmed, this can last a week and sometimes longer. It is normal to feel like you have to urinate very often but nothing comes out. You may feel like you have to urinate again, or feel pressure in the pelvic area, even right after you just urinated. You may leak and not make it to the bathroom. These are called bladder spasms and are common after the procedure. It is normal to have some discomfort after the procedure. This can last up to 4 weeks and includes: pelvic ache, urinary frequency, and urinary urgency. Most patients report symptoms getting better within 2 weeks. Finish the antibiotic which you have already started If you were given drugs to make you drowsy or pain medication follow these instructions: -You should spend the remainder of the day and evening resting -You should not attempt to walk, including going to the bathroom without assistance. You may be lightheaded from the medication you received. -Eat light today to avoid nausea. You should be able to return to your normal diet 24 to 36 hours after your procedure. -For the next 24 hours, do not consume alcohol, attempt to drive, use power tools, sign important documents or make important decisions. After that only do so if you feel perfectly normal and alert. -Follow carefully any verbal or written instructions your surgeon may give you. You should contact your physician if you experience any of the following: -Temperature above 101.5 -Excessive urinary bleeding or bleeding from the penis -Continuous bladder spasms -Painful, swollen and/or inflated testicle(s) or scrotum. -Unable to void spontaneously or the indwelling catheter is not draining urine or is blocked -Bright milton red urine that does not stop after 3 days -Unable to urinate after 7-8 hours or bladder feeling full and you can t urinate -If you have excessive or persistent pain, swelling, bleeding, nausea, vomiting, or any problems, you should first call your surgeon for advice. If you are unable to contact your surgeon, seek help from a hospital emergency room. Follow Up Care 06/23/2024 15:57:15 With:John BAPTISTE Address: [address] [place] [address]- Business (1) When: Unknown Comments:Push the fluids to keep the urine clear. Stay on the Flomax for now.Some discharge instructions have been provided. If the bleeding gets severe, or the catheter is clogging from blood clots, you need to go to the ER for irrigation.Will make a one week appt. to remove the catheter. [facility] 08-08-2024 Note Patient Education Urolift ??? Some men may experience discomfort after the procedure. On occasion, some bloody discharge may be apparent from the penis. You may have soreness in the lower abdomen, and it may be uncomfortable to sit. You may experience the need to urinate more frequently and with greater urgency. These are all normal reactions to the procedure. It is important to take care of yourself the next couple of days to facilitate a speedy recovery. The following are some suggestions: -Have someone drive you home after the procedure. -Drink plenty of water; 8 10oz glasses per day. If your urine looks dark yellow, you are probably not drinking enough water. -Take your medications as prescribed -If you have a catheter placed, do not engage in strenuous activity until your catheter has been removed. You may take a shower but avoid a bath while you have a catheter. - In the event you have to go home with a catheter, you may notice leakage of urine and/or yellow discharge/blood around the catheter. This is normal and no cause to be alarmed; UNLESS you are having significant pain associated with the leakage or the leakage does not stop. -You can use Tylenol or Advil for discomfort. Use AZO (over the counter) for burning with urination ??? It is normal to have some blood in your urine after surgery. One day it may be clear, and the next day it might be bloody. Do not be alarmed, this can last a week and sometimes longer. ??? It is normal to feel like you have to urinate very often but nothing comes out. You may feel like you have to urinate again, or feel pressure in the pelvic area, even right after you just urinated. ??? You may leak and not make it to the bathroom. These are called ???bladder spasms??? and are common after the procedure. ??? It is normal to have some discomfort after the procedure. This can last up to 4 weeks and includes: pelvic ache, urinary frequency, and urinary urgency. Most patients report symptoms getting better within 2 weeks. ??? Finish the antibiotic which you have already started ??? If you were given drugs to make you drowsy or pain medication follow these instructions: -You should spend the remainder of the day and evening resting -You should not attempt to walk, including going to the bathroom without assistance. You may be lightheaded from the medication you received. -Eat light today to avoid nausea. You should be able to return to your normal diet 24 to 36 hours after your procedure. -For the next 24 hours, do not consume alcohol, attempt to drive, use power tools, sign important documents or make important decisions. After that only do so if you feel perfectly normal and alert. -Follow carefully any verbal or written instructions your surgeon may give you. ??? You should contact your physician if you experience any of the following: -Temperature above 101.5 -Excessive urinary bleeding or bleeding from the penis -Continuous bladder spasms -Painful, swollen and/or inflated testicle(s) or scrotum. -Unable to void spontaneously or the indwelling catheter is not draining urine or is blocked -Bright milton red urine that does not stop after 3 days -Unable to urinate after 7-8 hours or bladder feeling full and you can???t urinate -If you have excessive or persistent pain, swelling, bleeding, nausea, vomiting, or any problems, you should first call your surgeon for advice. If you are unable to contact your surgeon, seek help from a hospital emergency room. [facility] 08-08-2024 Evaluation + Plan note Extrac zakiya from: Title:EU UroLift 8 Implants- FT Author:John BAPTISTE MD Date:08/08/24 Patient: DEMARCUS CALDERON Age: 69 years Sex: Male : 1955 Associated Diagnoses: None Author: John BAPTISTE MD Procedure Operative Information Details: Date/ Time: 08/08/2024 13:41:00. Pre-Op Dx: Acute urinary retention ([id number] R33.8, Working, Medical), BPH with obstruction/lower urinary tract symptoms (FRQ44-EK N40.1, Working, Medical). Post-Op Dx: Same. Anesthesia Type: Local. Procedure: Cystoscopy with UroLift Prostatic Urethral Lift. Complications: None. Risks/Benefits/Informed Consent: Surgical risks, benefits, details of the procedure have been explained to the patient, Full informed consent has been obtained. 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 He remains on Flomax and this should continue after the procedure (0.8 mg total daily). Intraoperative Information Prepped: Patient received 1 hour prior to procedure (10 mg diazepam, 5/325 mg of [place]), Local Anesthesia (60cc 2% Xylocaine liquid inserted into bladder, 20cc Xylocaine 2% jelly inserted into urethra, Penile clamp applied for 20 min dwell prior to procedure with patient in sitting position). Procedure: A 20F cystoscope was inserted into the bladder, The cystoscopy bridge was replaced with a UroLift delivery device, The first treatment site was the patient's left side approximately 1.5 cm distal to the bladder neck, The distal tip of the delivery device was then angled laterally approximately 20 degrees at this position to compress the lateral lobe, The trigger was pulled, thereby deploying a needle containing the implant through the prostate, The needle was then retracted, allowing one end of the implant to be delivered to the capsular surface of the prostate, The implant was then tensioned to assure capsular seating and removal of slack monofilament, The device was then angled back toward midline and slowly advanced proximally (typically 3-4mm) until cystoscopic verification of the monofilament being centered in the delivery bay, The urethral end piece was then affixed to the monofilament thereby tailoring the size of the implant, Excess filament was then severed, The delivery device was then readvanced into the bladder, The delivery device was then replaced with cystoscope and bridge and the implant location and opening effect was confirmed cystoscopically, The same procedure was then repeated on the right side, Two additional implants were delivered just proximal to the veru montanum, again one on right and one on left side of the prostate, following the same technique, Cystoscopy then revealed a persistent area of obstruction, and two more implants were delivered in the mid prostate, A final cystoscopy was conducted first to inspect the location and state of each implant, And second, to confirm the presence of a continuous anterior channel was present through the prostatic urethra with irrigation flow turned off, All instruments were removed, The patient was then allowed to sit up, Two more implants were placed , pulling the median lobe from the left to the right. (ATC's utilized) Upon procedure completion, the bladder was filled. with about 150 cc of saline. Voiding trial pending at the time of this dictation. Ozuna catheter to be placed if he fails to void. . Specimens Removed: None. Devices Implanted: 8 Urolift devices. Postoperative Information Discharge: Home without Ozuna if he passes voiding trial, versus home with Ozuna to leg bag if unable to void. Then plan follow up in 1-2 weeks. . Addendum by John BAPTISTE MD on August 08, 2024 13:51 EDT The patient voided about 100 cc without problems, but the urine is bloody. Discussed options. Will place three way Ozuna, push fluids, and may need ER evaluation and CBI if the bleeding gets more persistent/severe. He agrees with the plan. Future Appointments Appointment Date:08/13/2024 12:00:00 PM Scheduled Provider: Location:[facility] Appointment Type:Urology CALL PAT Appointment Date:08/15/2024 08:00:00 AM Scheduled Provider: Location:[facility] [place] Appointment Type:URO Nurse Visit [facility] 02-20-2025 History of Present illness Narrative* Marybeth Long MD - 07/17/2024 10:35 AM EST Lesions: Location: back Duration: few weeks Quality: painful, itchy Associated symptoms: bleeding Treatments: none Rash Location: axillae, lower back, groin Duration: years Quality: very itchy Associated symptoms: red, one time had blisters Tried/failed: TAC 0.1% cream bid x 14 days (started 06/01/2024)- was instructed not to use on groin area. States it did help axillae Current treatments: Vaseline New patient, referred by Sally Ba NP All pertinent medical history, medications, and allergies were reviewed. General Exam: alert, oriented to person, place, and time, normal affect, well appearing Unaccompanied A focused exam completed based on patient reported problems, see below: 1. Epidermal inclusion cyst Mid Back Subcutaneous, mobile nodule WITH central punctum. Patient was counseled regarding cysts. Although benign, cysts often slowly enlarge and can occasionally become inflamed. Discussed the only way to definitively diagnose the lesion would be to have itremoved and tested. Discussed treatment options including observation vs. excision. Patient elected for observation. Notify office if lesion is enlarging or becomes symptomatic. Related Procedures Ambulatory referral to Dermatology 2. Erythema intertrigo Pubic, Right Foot - Anterior [place] moist plaques. Flaring today Discussed that intertrigo is a chronic condition that can be controlled but not cured. Recommend keeping areas as dry as possible to avoid flares. Start Nystatin powder every day. Start HC 2.5% creamevery day prn itching, hold if not itchy. Notify office if worsening despite treatment. nystatin (Mycostatin) [id number] UNIT/GM powder - Pubic Apply to the affected area on groin area, once daily, 30 day supply hydrocortisone 2.5 % cream - Pubic Apply thin layer to affected areas on groin up once or twice daily prn itching. Hold if not itchy. Next Visit: 3-4 weeks if not improving documented in this encounterFitzgibbon [id number] History of Present illness Narrative* Sally Ba, STAIN WIPER - 07/02/2024 9:15 AM EST Images from the original note were not included. Demarcus Calderon is a 69 y.o. male presents with chief complaint of ER Follow-up ([facility] 06/29/2024 dx: COPD exacerbation 2ndry viral infection. He was prescribed Z-Santos, Prednisone and Mucinex. He does continue to have mucus. He is not using Mucinex, reports it does not work.), Rash (Right axilla), and Mass (Mid back for 2-3 weeks, painful, hard) HPI: History of Present Illness The patient presents for evaluation of a rash on his back, COPD. He reports an improvement in his condition following a recent exacerbation of his COPD, which was managed with steroids and antibiotics due to the presence of yellow phlegm. He is not experiencing any shortness of breath at present. His current treatment regimen includes the use of albuterol as needed and nebulizers, with a routine administration of albuterol in the morning. He did not have a chest x-ray. He has been experiencing a persistent rash on his back, accompanied by a mole in the same area. He also reports the presence of a rash under his armpit. He has been applying a cream prescribed by for the rash. He previously used a clear gel, which he found effective, but he has run out of this medication. He has not sought dermatological consultation for these issues. He was advised to discontinue his diuretic medication during his last visit due to low sodium levels. He still has some of the medication available for use in case of swelling. 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 MEDICATIONS Current: Albuterol I have reviewed and reconciled the history and medication list with the patient today. Flowsheet Row Patient Outreach from 06/30/2024 in [facility] with Orquidea Shah RN Hospital Information ED, Hospital or Senior Care Facility Discharge? ED Patient has been contacted within 1 week of being seen in the ED Yes Diagnosis COPD exacerbation secondary to viral infection Discharge Date 06/29/24 Discharged To: Home Setting Discharge Hospital -- [[facility]] Engagement Admission Date 06/29/24 Medications Discharge medications reviewed and reconciled from hospital? Yes [Z-santos, Prednisone, Mucinex] Is the patient having any side effects they believe may be caused by any medication additions or changes? No Does the patient have all medications ordered at discharge? Yes Nursing Interventions Nurse provided patient education Is the patient taking all medications as directed (includes completed medication regime)? Yes Nursing Interventions Nurse provided patient education Appointments Does the patient have a primary care provider? Yes Nursing Interventions Verified appointment date/time/provider Does the patient have any upcoming specialty appointments? No Self Management Does patient have home health no Patient Teaching Does the patient have access to their discharge instructions? Yes Nursing Interventions Reviewed instructions with patient What is the patient's perception of their health status since discharge? Improving Is the patient/caregiver able to teach back the hierarchy of who to call/visit for symptoms/problems? PCP, Specialist, Home Health nurse, Urgent Care, ED, 911 Yes Wrap Up Wrap Up Additional Comments Patient present to [place] [facility] with a productive cough and runny nose X2 weeks. Pt given a breathing treatnment in ER. Pt dx: possible COPD exacerbation secondary to viralinfection. Pt discharged home on Z- santos, Prednisone, and Mucinex. HISTORIES: PAST MEDICAL HISTORY: Past Medical History: Diagnosis Date Asthma (CMS/HCC) BPH (benign prostatic hyperplasia) CAD (coronary artery disease) (CMS/HCC) COPD (chronic obstructive pulmonary disease) (CMS/HCC) Emphysema, unspecified (CMS/HCC) Hypercholesterolemia (CMS/HCC) Hypertensive heart disease (CMS/HCC) SURGICAL HISTORY: Past Surgical History: Procedure Laterality Date COLONOSCOPY 2019 normal CORONARY ANGIOPLASTY WITH STENT PLACEMENT 2009 SHOULDER SURGERY Right nerve in right shoulder SOCIAL HISTORY: Social History Tobacco Use Smoking status: Former Current packs/day: 0.00 Types: Cigarettes Quit date: 05/28/1992 Years since quittin.1 Vaping Use Vaping status: Never Used Substance [...] alpha tocopherol (VITAMIN E) 400 Units, Daily azithromycin (ZITHROMAX) 250 mg, See admin instructions Breztri Aerosphere 160-9-4.8 MCG/ACT aerosol INHALE 2 PUFFS BY MOUTH 2 TIMES A DAY, RINSE MOUTH AFTER USE carvedilol (COREG) 6.25 mg, Oral, 2 times daily with meals cholecalciferol (VITAMIN D-3) 50 mcg, Daily ezetimibe (ZETIA) 10 mg, Nightly fluticasone (Flonase) 50 MCG/ACT nasal spray 2 sprays, Daily Qpuhrajvljt-Ouolmtsdj-Kdheky (Trelegy Ellipta) 100-62.5-25 MCG/ACT aerosol powder 1 puff, Daily furosemide (LASIX) 40 mg, Oral, Daily losartan (COZAAR) 50 mg, Daily magnesium oxide (MAG-OX) 250 mg, Daily Multiple Vitamin (Multivitamin Adult) tablet 1 tablet, Daily nitroglycerin (NITROSTAT) 0.4 mg, Every 5 min PRN omega-3 (fish oil) 1200 MG capsule 1 capsule, Daily omeprazole (PRILOSEC) 20 mg, Oral, Daily predniSONE (DELTASONE) 50 mg, Daily rosuvastatin (CRESTOR) 40 mg, Daily RT sildenafil (VIAGRA) 100 mg, Oral, As needed tamsulosin (FLOMAX) 0.4 mg, Oral, Daily triamcinolone (Nasacort Allergy 24HR) 55 MCG/ACT nasal inhaler 1 spray, Daily zinc 30 mg, Daily ALLERGIES: Allergies Allergen Reactions Codeine Nausea And Vomiting and Other Other Reaction(s): Vomiting Guaifenesin Other Other Reaction(s): Airway constriction PHYSICAL EXAM: Visit Vitals BP 138/86 (BP Location: Left arm, Patient Position: Sitting) Pulse 71 Ht 5' 8 Wt 236 lb SpO2 98% BMI 35.88 kg/m Smoking Status Former BSA 2.27 m BP Readings from Last 3 Encounters: 07/02/24 138/86 05/07/24 138/80 03/26/24 122/80 Wt Readings from Last 3 Encounters: 07/02/24 236 lb 05/07/24 241 lb 3.2 oz 03/26/24 236 lb Physical Exam HENT: Mouth/Throat: Mouth: Mucous membranes are moist. Cardiovascular: Rate and Rhythm: Normal rate and regular rhythm. Heart sounds: No murmur heard. No friction rub. No gallop. Pulmonary: Effort: Pulmonary effort is normal. Breath sounds: Normal breath sounds. Skin: General: Skin is warm and dry. Findings: Lesion (cyst on mid back) and rash present. Rash is scaling (mid low back). Neurological: Mental Status: He is alert and oriented to person, place, and time. Psychiatric: Mood and Affect: Mood normal. Thought Content: Thought content normal. Results ASSESSMENT AND PLAN: Assessment & Plan 1. Chronic obstructive pulmonary disease, unspecified COPD type (CMS/HCC) (Primary) Er records reviewed. He reports feeling better and is not experiencing any shortness of breath. He uses albuterol in the morning as needed and has nebulizers at home. 2. Bronchiectasis without complication (CMS/HCC) As above. 3. Rash He has a rash on mid low back and under his right armpit. A prescription for a topical cream will be sent to [facility] pharmacy. Follow up if not resolving. - triamcinolone (Kenalog) 0.1 % cream; Apply 1 application topically in the morning and 1 application at noon and 1 application in the evening and 1 application before bedtime. Do all this for 14 days. Avoid face and groin. Apply on back and under arm area. Dispense: 45 g; Refill: 1 4. Skin lesion of back A referral to dermatology will be made for further evaluation and potential excision of the cyst. - Ambulatory referral to Dermatology; Future 5. Sebaceous cyst As above. - Ambulatory referral to Dermatology; Future documented in this encounterFitzgibbon [id number] Hospital Discharge instructions Patient Education 06/23/2024 15:40:46 [...] including vitamins, herbs, eye drops, creams, and sxih-agw-qziteob medicines. Any problems you or family members [...] provider tells you to take them. Taking tywb-aao-awiaqtn medicines, vitamins, herbs, and supplements. Surgery safety Ask your health care provider what steps will be taken to help prevent infection. These steps may include: Removing hair at the surgery site. Washing skin with a germ-killing soap. Taking antibiotic medicine. General instructions Do not use any products that contain nicotine or tobacco for at least 4 weeks before the procedure.These products include cigarettes, chewing tobacco, and vaping [...] to have a responsible adult take you homefrom the hospital or clinic. You will not be allowed to drive. This information is not intended to replace advice given to you by your health care provider. Make sure you discuss any questions you have with your health care provider. Document Revised: 12/09/2021 Document Reviewed: 12/09/2021 [employer] Patient Education 2023 [employer]. Follow Up Care 04/28/2024 12:25:17 With:BENNY SHELLEY, John Hauser, URL Address: [facility] [address] [place] [phone]- When: Unknown [facility] 01-27-2025 NotePatient Education Urology Prostatic Urethral Lift Prostatic urethral [...] from medicines or other procedures that are usedto treat BPH. Tell a health care provider about: ??? Any allergies you have. ??? All medicines you are taking, including vitamins, herbs, eye drops, creams, and oaab-lvj-lzchwxs medicines. ??? Any problems you or family [...] tells you to take them. ??? Taking faaz-pxh-gvniirr medicines, vitamins, herbs, and supplements. Surgery safety [...] procedure to relieve symptoms (more content not included)...[facility]12[facility] History of Present illness Narrative* Rene Cortez MD - 05/15/2024 9:10 AM EST Subjective Demarcus Calderon is a 69 y.o. [...] last nuclear stress test 2022 reveals no ischemia,he has no angina pectoris. Sublingual nitroglycerin was [...] by mouth 2 times daily (morning and lateafternoon)., Disp: 180 tablet, Rfl: 3 cholecalciferol (Vitamin D-3) 50 MCG (1999 UT) tablet, Take 1 tablet (50 mcg) by mouth once daily.,Disp: , Rfl: ezetimibe (Zetia) 10 mg tablet, Take 1 tablet (10 mg) by mouth once daily., Disp: , Rfl: hydroCHLOROthiazide (HYDRODiuril) 25 mg tablet, Take 1 tablet (25 mg) by mouth once daily., Disp: ,Rfl: losartan (Cozaar) 50 mg tablet, TAKE 1 TABLET DAILY (NEW DOSE), Disp: 90 tablet, Rfl: 3 magnesium oxide (Mag-Ox) 250 mg magnesium tablet, Take 1 tablet (250 mg) by mouth once daily., Disp: , Rfl: multivitamin (MULTIPLE VITAMINS ORAL), 1 tablet once daily., Disp: , Rfl: omega-3 fatty acids-fish oil (One-Per-Day [place]-3) 684-1,200 mg capsule, Take as directed, Disp: [...] 11 Assessment/Plan 1. Coronary artery disease involving [place] coronary artery of [place] heart without angina pectorisFollow Up In Cardiology Follow Up In Cardiology [...] my direction and personally dictated by me. Ihave reviewed the chart and agree that the record accurately reflects my personal performance of the history, physical exam, discussion and plan. [facility] Work Phone: 1(254) 924-672312-19-2024 Instructions* Patient Instructions* Ana Cunningham LPN - 05/15/2024 9:10 AM [...] on exercise. Follow up [facility] Work Phone: 1(478) 908-623712-11-2024 History of Present illness Narrative* Jessica Busby NP - 05/07/2024 5:15 PM EST Images from the original note were not included. [address] , [address] [facility], [address] P: [phone] F: [phone] HPI Historian of HPI: patient Demarcus Calderon [...] PE. IH Testing: Pt was admitted to [facility] for pneumonia in January of 2024. PHYSICAL [...] with exam. TREATMENT PLAN documented in this [facility]12-11-2024 Instructions* Patient Instructions* Jessica Busby NP - 05/07/2024 5:15 PM EST Cover for otitis. Finish all doses of antibiotic Push fluids, may continue with OTC Meds for sy mptom relief COPD Is stable, saw pulmonology today documented in this [facility]12-02-2024 Hospital Discharge instructions Patient Education 04/28/2024 12:02:30 Urinary Incontinence Urinary Incontinence Urinary incontinence refers to a condition in which a person is unable to control where and when topass urine. A person with this condition will urinate involuntarily. This means that the person urinates when he or she does not mean to. What are the causes? This condition may be caused by: Medicines. Infections. Constipation. Overactive bladder muscles. Weak bladder muscles. Weak pelvic floor muscles. These muscles provide support for the bladder, intestine, and, in women,the uterus. Enlarged prostate in men. The prostate [...] a small amount, or constantly dribbling urine (overflowincontinence). Urinating because you cannot get to the [...] fiber include beans, whole grains, and fresh fruitsand vegetables. Behavioral changes, such as: ?Pelvic floor [...] stimulation). ?For women, using a medical office assistant instructor to prevent urine leaks. This is a small, tampon-like, disposabledevice that is inserted into the urethra. ?Injecting [...] right after experiencing incontinence. General instructions Take dxmj-nzw-nrrafcy and prescription medicines only as told by [...] important. Where to find more information National Butler of Diabetes and Digestive and Kidney Diseases: www.niddk.nih.gov [place] [employer] Association: www.urologyhealth.org Contact a health care [...] is unable to control where and when topass urine. This condition may be caused by medicines, infection, weak bladder muscles, weak pelvic floor muscles, enlargement of the prostate (in men), or surgery. Factors such as older age, obesity, and childbirth, menopause, neurological diseases, andchronic coughing may increase your risk for developing [...] provider. Document Revised: 12/17/2020 Document Reviewed: 12/17/2020 [employer] Patient Education 2023 [employer]opher. 04/28/2024 12:02:20 Acute Urinary Retention, Male Acute Urinary Retention, Male Acute urinary retention is a condition in which a person is unable to pass urine or can only pass alittle urine. This condition can happen suddenly and [...] As men age, their prostate may become largerand may start to press or squeeze on the bladder or the urethra. Other chronic health conditions can increase the risk of acute urinary retention. These include: Diseases such as multiple sclerosis. Spinal cord injuries. Diabetes. Degenerative cognitive conditions, such as delirium or dementia. Psychological conditions. A man may hold his urine due to trauma or because he does not want to usethe bathroom. What are the signs or symptoms? [...] Follow these instructions at home: Medicines Take aclp-ynh-qbhrbld and prescription medicines only as told by your health care provider. Avoid certain medicines, such as decongestants, antihistamines, and some prescription medicines. Do not take any medicine unless your health care provider approves. If you were prescribed an antibiotic medicine, take it as told by your health care provider. Do notstop using the antibiotic even if you start to feel better. General instructions Do not use any products that contain nicotine or tobacco. These products include cigarettes, chewing tobacco, and vaping devices, such as e-cigarettes. If you need help quitting, ask your health careprovider. Drink enough fluid to keep your urine [...] to pass urine or can only pass alittle urine. If left untreated, this condition can [...] provider. Document Revised: 02/02/2021 Document Reviewed: 02/02/2021 [employer] Patient Education 2023 Toopher. 04/28/2024 12:02:13 Prostate Cancer Screening Prostate Cancer Screening Prostate cancer screening is testing that is done to check for the presence of prostate cancer in men. The prostate gland is a walnut-sized gland that is located below the bladder and in front of therectum in males. The function of the prostate is to add fluid to semen during ejaculation. Prostatecancer is one of the most common types of cancer in men. Who should have prostate cancer screening? Screening recommendations vary based on age and other risk factors, as well as between the professional organizations who make the recommendations. In general, screening is recommended if: You are age 50 to 70 and have an average risk for prostate cancer. You should talk with your healthcare provider about your need for screening and [...] diagnosed with prostate cancer. The risk is higherif your family member's cancer occurred at an early age or if you have multiple family members withprostate cancer at an early age. ?Being a [...] is a blood test called the prostate-specific antigen(PSA) test. PSA is a protein that is [...] treatment? Where to find more information The [place] Cancer Society: www.cancer.org [place] [employer] Association: www.auanet.org Contact a health care [...] the recommended screening test for prostate cancer, butit has associated risks. Discuss the risks and [...] provider. Document Revised: 11/07/2021 Document Reviewed: 11/07/2021 [employer] Patient Education 2023 Toopher. Follow Up Care 04/16/2024 11:10:33 With:SU COOK PA-C, URL Address: [address] [place] [address] When: Unknown [facility] Terrell [phone] NotePatient Education Oncology Prostate Cancer Screening Prostate cancer screening is testing that is done to check for the presence of prostate cancer in men. The prostate gland is a walnut-sized gland that is located below the bladder and in front of therectum in males. The function of the prostate is to add fluid to semen during ejaculation. Prostatecancer is one of the most common types [...] is a blood test called the prostate-specific antigen(PSA) test. PSA is a protein that is [...] prostate gland for testing (biopsy). This is theonly way to know for certain if you [...] Where to find more information ??? The [place] Cancer Society: www.cancer.org ??? [place] [employer] Association: www.auanet.org Contact a health care [...] men. The prostate gland (more content not included)...[facility]11-[facility] NoteUrology Office/Clinic Note Chief Complaint new patient referral elevated [...] ozuna insertion 02/16. Ozuna removed prior to d/c.Sent home on PO cefdinir x 5 days. [...] PSA to see if PSA declining (this willbe about 2 mos from last draw). Patient [...] 2 caps daily. Advised to watch for potentialdizziness/lightheadedness and dc if becomes a problem. Discussed [...] by Su Cook PA-C on 04/16/2024 14:04:40. I, Tatiana Dyson PA-C, personally scribed for Su Cook PA-C on 04/16/2024 13:21:20. . Follow-up With When Contact Information SU COOK PA-C, URL [address] [place] [address] Additional Instructions: f/u in 2 weeks w/ PSA and PVR Patient Education Acute Urinary Retention, Male Benign Prostatic Hyperplasia Prostatitis Problem List/Past Medical History Ongoing Chronic systolic congestive heart f (more content not included)...[facility]:Result Comment: Electronically Signed By: SU COOK PA-C\.br\Date and Time Signed: 04/16/2414:04 EST\.br\Electronically Co-Signed By: Tatiana Dyson PA-C\.br\Date and Time Co-Signed: 04/16/2413:22 EST\.br\Electronically Co-Signed By: Tatiana Dyson PA-C\.br\Date and Time Co- Signed: 04/16/2413:24 [id number] Hospital Discharge instructions Patient Education 04/16/2024 11:46:12 Acute Urinary Retention, Male Acute Urinary Retention, Male Acute urinary retention is a condition in which a person is unable to pass urine or can only pass alittle urine. This condition can happen suddenly and [...] As men age, their prostate may become largerand may start to press or squeeze on the bladder or the urethra. Other chronic health conditions can increase the risk of acute urinary retention. These include: Diseases such as multiple sclerosis. Spinal cord injuries. Diabetes. Degenerative cognitive conditions, such as delirium or dementia. Psychological conditions. A man may hold his urine due to trauma or because he does not want to usethe bathroom. What are the signs or symptoms? [...] Follow these instructions at home: Medicines Take pwgs-bkm-kkrysyf and prescription medicines only as told by your health care provider. Avoid certain medicines, such as decongestants, antihistamines, and some prescription medicines. Do not take any medicine unless your health care provider approves. If you were prescribed an antibiotic medicine, take it as told by your health care provider. Do notstop using the antibiotic even if you start to feel better. General instructions Do not use any products that contain nicotine or tobacco. These products include cigarettes, chewing tobacco, and vaping devices, such as e-cigarettes. If you need help quitting, ask your health careprovider. Drink enough fluid to keep your urine [...] to pass urine or can only pass alittle urine. If left untreated, this condition can [...] provider. Document Revised: 02/02/2021 Document Reviewed: 02/02/2021 [employer] Patient Education 2023 Toopher. 04/16/2024 11:46:02 Benign Prostatic Hyperplasia Benign Prostatic Hyperplasia Benign prostatic hyperplasia (BPH) is an enlarged prostate gland that is caused by the normal agingprocess. The prostate may get bigger as a man gets older. The condition is not caused by cancer. The prostate is a walnut-sized gland that is involved in the production of semen. It is located in front of the rectum and below the bladder. The bladder stores urine. The urethra carries stored urine ou t of the body. An enlarged prostate can press on the urethra. This can make it harder to pass urine. The buildup of urine in the bladder can cause infection. Back pressure and infection may progress to bladder damage and kidney (renal) failure. What are the causes? This condition is part of the normal aging process. However, not all men develop problems from thiscondition. If the prostate enlarges away from the [...] urethra. Follow these instructions at home: Take ndmj-gfz-nlotnkv and prescription medicines only as told by [...] provider. Document Revised: 11/30/2021 Document Reviewed: 11/30/2021 [employer] Patient Education 2023 Toopher. 04/16/2024 11:46:00 Prostatitis Prostatitis Prostatitis is swelling or inflammation of the prostate gland, also called the prostate. This glandis about 1.5 inches wide and 1 inch [...] quickly and results from an acute bacterial infectionin the prostate gland. It is usually associated [...] when the body's disease-fighting system attacks healthy tissuein the body by mistake. Psychological factors. These [...] Follow these instructions at home: Medicines Take xytb-mbj-rwewvby and prescription medicines only as told by your health care provider. If you were prescribed an antibiotic medicine, take it as told by your health care provider. Do notstop using the antibiotic even if you start to feel better. Managing pain and swelling Take sitz baths as directed by your health care provider. For a sitz bath, sit in warm water that is deep enough to cover your hips and buttocks. If directed, apply heat to the affected area as often as told by your health care provider. Use theheat source that your health care provider recommends, [...] important. Where to find more information National Butler of Diabetes and Digestive and Kidney Diseases: [...] depends on the type of prostatitis. Take yzdv-una-stmjxyq and prescription medicines only as told by your health care provider. Get help right away of you have chills, feel light-headed, feel like you may faint, cannot urinate,or have blood or blood clots in your urine. This information is not intended to replace advice given to you by your health care provider. Make sure you discuss any questions you have with your health care provider. Document Revised: 03/29/2023 Document Reviewed: 03/29/2023 [employer] Patient Education 2023 Toopher. Follow Up Care 03/06/2024 09:43:54 With:ADRIÁN DELACRUZ, SU Esquivel, URL Address: [facility] [address] [facility] [address] When: Unknown Comments:f/u in 2 weeks w/ PSA and PVR [facility] [place] [phone] NotePatient Education Infectious Disease Prostatitis Prostatitis is swelling or inflammation of the prostate gland, also called the prostate. This glandis about 1.5 inches wide and 1 inch [...] other disorders of the urinary tract or reproductivetract. ??? Acute bacterial prostatitis. This type starts [...] these instructions at home: Medicines ??? Take qgbp-qea-sfjfoth and prescription medicines only as told by your health care provider. ??? If you were prescribed an antibiotic medicine, take it as told by your health care provider. Donot stop using the antibiotic even if you start to feel better. Managing pain and swelling ??? Take sitz baths as directed by your health care provider. For a sitz bath, sit in warm water that is deep enough to cover your hips and buttocks. ??? If directed, apply heat to the affected area as often as told by your health care provider. Usethe heat source that your health care provider [...] provider. This is important. (more content not included)...[facility] History of Present illness Narrative* Sera Flower MD - 03/26/2024 1:00 PM EDT Images from the original note were not included. Demarcus Calderon is a 69 y.o. male presents with chief complaint of 6 Month Follow-up (Lab drawn 02/27/2024. ) and Cough (Productive cough continues with yellow sputum. Occasional shortness of breath.CXR ordered on 02/26 to repeat in 8 [...] HISTORY: Past Medical History: Diagnosis Date Asthma (CMS/HCC) BPH (benign prostatic hyperplasia) CAD (coronary artery disease) (CMS/HCC) COPD (chronic obstructive pulmonary disease) (CMS/HCC) Emphysema, unspecified (CMS/HCC) Hypercholesterolemia (CMS/HCC) Hypertensive heart disease (CMS/HCC) SURGICAL HISTORY: Past Surgical History: Procedure Laterality Date COLONOSCOPY 2020 normal CORONARY ANGIOPLASTY WITH STENT PLACEMENT 2009 [...] 50 MCG/ACT nasal spray 2 sprays, Daily Olklsxodfcw-Rllaxliif-Eaieej (Trelegy Ellipta) 100-62.5-25 MCG/ACT aerosol powder 1 [...] lifestyle modifications to include minimizing salt and alcohol,exercising regularly, and keeping weight down. Continue current medications. 2. Chronic systolic congestive heart failure (CMS/HCC) Currently compensated. No problems with SOB, COYNE, or increased edema with weight gain. Continue current medication regimen. Eat a heart healthy diet low in sodium. Monitor weights regularly and call if increased more than 5 pounds. Call immediately if any problems or concerns. 3. Coronary artery disease involving [place] coronary artery of [place] heart without angina pectoris(CMS/HCC) Doing well. Denies any anginal symptoms. Continue [...] and help with weight loss. Eat a healthydiet such as a Mediterranean diet and try to control calories to lose weight and maintain that lossto prevent progression to diabetes. 7. Elevated PSA [...] evaluation may be necessary. documented in this encounterFitzgibbon [id number] History of Present illness Narrative* Sally Ba NP - 02/27/2024 10:45 AM EDT Images from the original note were not included. Demarcus Calderon is a 69 y.o. male presents with chief complaint of Hospital Follow-up ([facility] [place] dx: sepsis, COPD, pneumonia) HPI: Patient presented to [facility] ER with complaints of shortness of breath, productive cough and wheezing. CXR showed right lower lobe and middle lobe pneumonia. He was prescribed Prednisone and Cefdinir. He reports to be feeling much better. He does have follow-up scheduled with Dr. Morgan, confidential secretary, in April. History of Present Illness The [...] Flowsheet Row Patient Outreach from 02/21/2024 in [facility] with Tootie Jacobson RN Hospital Information Diagnosis Pneumonia, HTN, CHF, Benign prostate hyperplasia without urinary symptoms. Discharged To: Home Setting Discharge Hospital [facility] Engagement Admission Date 02/17/24 Medications Discharge medications [...] worsening cough, SOB, wheezing, fever, chills. Dx withpneumonia. Spoke to . She reports pt is currently resting but feeling better. aware of follow up appts. states pts prostate was enlarged in the hospital that he was not able to urinate.Was told to mention this at follow up visit. reports pt is voiding normally at home. HISTORIES: PAST MEDICAL HISTORY: Past Medical History: Diagnosis Date Asthma ([facility]) BPH (benign prostatic hyperplasia) CAD (coronary artery disease) ([facility]) COPD (chronic obstructive pulmonary disease) ([facility]) Emphysema, unspecified ([facility]) Hypercholesterolemia ([facility]) Hypertensive heart disease ([facility]) SURGICAL HISTORY: Past Surgical History: Procedure Laterality [...] nasal spray 2 sprays, Each Nostril, Daily Bueiupvrica-Pazmaeqjw-Fclkop (Trelegy Ellipta) 100-62.5-25 MCG/ACT aerosol powder 1 [...] - Basic metabolic panel 4. Essential hypertension ([facility]/HCC) Doing well. Blood pressures have been good. Continue lifestyle modifications. Continue current medication. Call if any problems or if home blood pressures rising. - Basic metabolic panel 5. Chronic systolic congestive heart failure ([facility]/HCC) It was felt pt had volume overload due to IVF. He is using Lasix intermittently. Denies problems with SOB, COYNE, or increased edema with weight gain. Continue current medication regimen. Eat a heart healthy diet low in sodium. Monitor weights regularly and call if increased more than 5 pounds. Call immediately if any problems or concerns. 6. Coronary artery disease involving [place] coronary artery of [place] heart without angina pectoris([facility]) Doing well. Denies any anginal symptoms. Continue aggressive risk factor modification. Continue current medications. Call if any problems. 7. Gastroesophageal reflux disease without esophagitis Stable. Continue current regimen. 8. Benign prostatic hyperplasia without urinary obstruction Stable. Continue current regimen. - PSA, total and free documented in this encounterFitzgibbon [id number] Note Gram Stain Evaluation This specimen is of good quality and is acceptable for routine Fitzgibbon [id number] NoteGRAM STAIN EVALUATIONbacterial culture.[facility] [id number] History of Present illness Narrative* Rene Cortez MD - 10/18/2023 9:30 AM EDT Subjective Demarcus Calderon is a 68 y.o. male Chief Complaint Follow-up HPI Patient is in the office for follow-up for the problems noted below. He has had no cardiac events since he was last seen. Denies any angina or dyspnea. He retired few weeks ago and he continues to follow with the [facility]. [facility] [...] [facility] nuclear stress test 2022 reveals no ischemia,he has no angina pectoris. Sublingual nitroglycerin was [...] emphasis on low-calorie diet Rene Cortez MD, [facility] Review of Systems All other systems [...] 1 tablet (50 mcg) by mouth once daily.,Disp: , Rfl: ezetimibe (Zetia) 10 mg tablet, Take 1 tablet (10 mg) by mouth once daily., Disp: , Rfl: hydroCHLOROthiazide (HYDRODiuril) 25 mg tablet, Take 1 tablet (25 mg) by mouth once daily., Disp: ,Rfl: losartan (Cozaar) 50 mg tablet, TAKE 1 TABLET DAILY (NEW DOSE), Disp: 90 tablet, Rfl: 3 magnesium oxide (Mag-Ox) 250 mg magnesium tablet, Take 1 tablet (250 mg) by mouth once daily., Disp: , Rfl: multivitamin (MULTIPLE VITAMINS ORAL), 1 tablet once daily., Disp: , Rfl: omega-3 fatty acids-fish oil (One-Per-Day [place]-3) 684-1,200 mg capsule, Take as directed, Disp: [...] 3 Assessment/Plan 1. Coronary artery disease involving [place] coronary artery of [place] heart without angina pectorisFollow Up In Cardiology rosuvastatin (Crestor) 40 mg [...] my direction and personally dictated by me. Beata reviewed the chart and agree that the record accurately reflects my personal performance of the history, physical exam, discussion and plan. documented in this [facility] Work Phone: 1(532) 263-602405-23-2024 Instructions* Patient Instructions* Ana Cunningham LPN - 10/18/2023 9:30 AM [...] Follow up 6 months documented in this [facility] Work Phone: 1(296) 634-803302-03-2024 History of Present illness Narrative* Hosea Snyder, - 06/30/2023 10:05 AM EST HPI: Historian of HPI: patient Demarcus Calderon [...] day x 3 days documented in this encounterFitzgibbon [id number] History of Present illness Narrative* Rene Cortez MD - 03/23/2023 9:40 AM EDT Subjective Demarcus Calderon is a 68 y.o. [...] emphasis on low-calorie diet Rene Cortez MD, [facility] Review of Systems All other systems [...] , Rfl: cholecalciferol (Vitamin D-3) 50 MCG (1999) tablet, Take 1 tablet (50 mcg) by mouth once daily.,Disp: , Rfl: ezetimibe (Zetia) 10 mg tablet, Take 1 tablet (10 mg) by mouth once daily., Disp: , Rfl: hydroCHLOROthiazide (HYDRODiuril) 25 mg tablet, Take 1 tablet (25 mg) by mouth once daily., Disp: ,Rfl: losartan (Cozaar) 25 mg tablet, Take 1 tablet (25 mg) by mouth 2 times a day., Disp: , Rfl: magnesium oxide (Mag-Ox) 250 mg magnesium tablet, Take 1 tablet (250 mg) by mouth once daily., Disp: , Rfl: multivitamin (MULTIPLE VITAMINS ORAL), 1 tablet once daily., Disp: , Rfl: omega-3 fatty acids-fish oil (One-Per-Day [place]-3) 684-1,200 mg capsule, Take as directed, Disp: [...] Rfl: Assessment/Plan 1. Coronary artery disease involving [place] coronary artery of [place] heart without angina pectorisFollow Up In Cardiology CBC Lipid Panel Basic [...] Aspartate Aminotransferase Alanine Aminotransferase [facility] Work Phone: 1(280) 806-754010-27-2023 Instructions* Patient Instructions* Millie Hoffmann CMA - 03/23/2023 9:40 AM [...] time of your visit. documented in this encounterAden[facility] Work Phone: 1(916) 822-453106-20-2023 NoteHNO ID: [id number] Author: Deandra Bender MD Service: ? Author [...] or facial palsy H/o Botox injections in [place]-->didn't help No h/o trauma H/o sinus surgery [...] can I get the FL-41 filter? Any [facility] location, (with an optical shop), throughout [place], Email: [email or web address] [employer] [facility] in [place], [place], [facility] in [place], [place], [facility] in [place], [place], [facility] in [place], [place], [email or web address] F/u Botulinum toxin 3 months, Botulinum toxin [...] Deandra Bender MD, November 14, 2022 10:00 AM.[facility]06-20-2023 History of Present illness Narrative* Deandra Bender MD - 11/14/2022 10:00 AM EDT Here for botox Right eye just started twitching Tears as needed. -rofPatient still having twitching right eye and occasionally the left. Refresh tears four times a day. -rof A/P: Right hemifacial spasm x 2 years Patient doesn't remember h/o bells or facial palsy H/o Botox injections in [place]-->didn't help No h/o trauma H/o sinus surgery in past MRI Brain W/WO IVCON 06/30/22 (report only) Impression: Mild periventricular hyperintensity. Incidental empty sella syndrome. Unremarkable MRI of the brainstem and orbital areas. No acute intracranial pathology [...] can I get the FL-41 filter? Any [facility] location, (with an optical shop), throughout [place], Email: [email or web address] [employer] in [place], [place], [facility] in [place], [place], [facility] in [place], [place], [facility] in [place], [place], [email or web address] F/u Botulinum toxin 3 months, Botulinum toxin is being used for medical indication and treatment ofhemifacial spasm , up to 100 units 2. [...] and plan as stated above and agree withall of its relevant components. I, Deandra Bender [...] 14, 2022 10:00 AM. documented in this encounterHolzer Health System03-14-2023 NoteHNO ID: [id number] Author: Deandra Bender MD Service: ? Author Type: Physician Type: Progress Notes Filed: 08/08/2022 3:09 PM Note Text: Patient still having twitching right eye and occasionally the left. Refresh tears four times a day. -rof A/P: Right hemifacial spasm x 2 years Patient doesn't remember h/o bells or facial palsy H/o Botox injections in [place]-->didn't help No h/o trauma H/o sinus surgery [...] Deandra Bender MD, August 08, 2022 3:05 PM.[facility]03-14-2023 History of Present illness Narrative* Deandra Bender MD - 08/08/2022 3:45 PM EDT Patient still having twitching right eye and occasionally the left. Refresh tears four times a day. -rof A/P: Right hemifacial spasm x 2 years Patient doesn't remember h/o bells or facial palsy H/o Botox injections in [place]-->didn't help No h/o trauma H/o sinus surgery in past MRI Brain W/WO IVCON 06/30/22 (report only) Impression: Mild periventricular hyperintensity. Incidental empty sella syndrome. Unremarkable MRI of the brainstem and orbital areas. No acute intracranial pathology [...] being used for medical indication and treatment ofhemifacial spasm , up to 100 units 2. [...] and plan as stated above and agree withall of its relevant components. I, Deandra Bender [...] 08, 2022 3:05 PM. documented in this encounterHolzer Health System03-14-2023 Instructions* Patient Instructions* Deandra Bender MD - 08/08/2022 3:09 PM [...] being used for medical indication and treatment ofhemifacial spasm , up to 100 units 2. Right central intrabrow lesion Patient states he has been using wart medicine on it No h/o skin cancer Discussed could biopsy today if patient would like; patient doesn't want biopsy Discussed if growing or irritating can biopsy Will monitor for now Photodocumentation Recheck next visit documented in this encounterHolzer Health System01-25-2023 Miscellaneous Notes* Telephone Encounter - Orquidea Ryan Perea - 06/21/2022 2:03 PM EST Notes and MRI orders faxed to [facility]. * Telephone Encounter - Delores Mccollum - 06/21/2022 12:50 PM EST [facility] called today. : 1955 Allergies: Codeine, Codeine-Guaifenesin, and Guaifenesin (home) [phone] (cell) Reason for call: Sasha F:[phone] Asking for the MRI orders and office notes to be faxed over to [facility]. Patient will be having them done there. Patient last appointment: Visit date not found The patients preferred pharmacy has been captured for this encounter? not asked Delores Mccollum documented in this encounterHolzer Health System01-25-2023 NoteHNO ID: [id number] Author: Deandra Bender MD Service: ? Author Type: Physician Type: Progress Notes Filed: 06/21/2022 9:08 AM Note Text: Twitching right eye x two years. Both upper and lower lid. Trouble reading because of it. +tearing and burning. Refresh four times a day. -rof A/P: Right hemifacial spasm x 2 years Patient doesn't remember h/o bells or facial palsy H/o Botox injections in [place]-->didn't help No h/o trauma H/o sinus surgery [...] Deandra Bender MD, June 21, 2022 9:05 AM.[facility]01-25-2023 Instructions* Patient Instructions* Deandra Bender MD - 06/21/2022 9:05 AM [...] and treatment of right hemifacial spasm, up to100 units ; may need to adjust dose Patient reports last doctor did not use alcohol to clean his face and would like that Return 1 month for Botulinum toxin and get MRI documented in this encounterHolzer Health System01-25-2023 History of Present illness Narrative* Deandra Bender MD - 06/21/2022 9:00 AM EST Twitching right eye x two years. Both upper and lower lid. Trouble reading because of it. +tearing and burning. Refresh four times a day. -rof A/P: Right hemifacial spasm x 2 years Patient doesn't remember h/o bells or facial palsy H/o Botox injections in [place]-->didn't help No h/o trauma H/o sinus surgery [...] and treatment of right hemifacial spasm, up to100 units ; may need to adjust dose [...] and plan as stated above and agree withall of its relevant components. I, Deandra Bender [...] 21, 2022 9:05 AM. documented in this encounterHolzer Health System12-05-2022 NoteHNO ID: [id number] Author: Mau Randle OD Service: ? Author Type: BACKREST ASSEMBLER Type: Progress Notes Filed: 05/01/2022 9:22 AM [...] all of its relevant components. Mau Randle, LATASHAOhio [facility] Surgical [facility]12-05-2022 History of Present illness Narrative* Mau Randle OD - 05/01/2022 8:46 AM EST A 67 year old White male presents [...] and plan as stated above and agree withall of its relevant components. Mau Randle OD documented in this encounterHolzer Health SystemEvaluation + Plan note Future Appointments Appointment Date:04/25/2024 08:30:00 AM Scheduled Provider: Location:[facility] Appointment Type:URO Nurse Visit Appointment Date:04/28/2024 11:20:00 AM Scheduled Provider:SU COOK PA-C Location:[facility] Appointment Type:URO Office Visit [facility] Evaluation + Plan note Future Appointments Appointment Date:04/28/2024 11:20:00 AM Scheduled Provider:SU COOK PA-C [facility] App[facility] Type:URO Office Visit [facility] Evaluation + Plan note Future Appointments Appointment Date:06/23/2024 03:00:00 PM Scheduled Provider:John BAPTISTE MD Location:[facility] Appointment Type:URO Procedure 15 min [facility] Evaluation + Plan note Future Appointments Appointment Date:08/13/2024 12:00:00 PM Scheduled Provider: Location:[facility] Appointment Type:Urology CALL PAT FT Appointment Date:08/14/2024 01:30:00 PM Scheduled Provider: Location:[facility] Appointment Type:Urology FT [facility] Evaluation note* Diagnosis Eyelid myokymia- Primary Other facial nerve disorders Dry eye syndrome of both eyes Hyperopia of both eyes with astigmatism and presbyopia documented in this encounter [facility]* Diagnosis Clonic hemifacial spasm, right- Primary Paralytic strabismus Paralytic strabismus, 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 documented in this encounter [facility] SystemEvaluwilmington hospital note* Diagnosis Clonic hemifacial spasm, right- Primary documented in this encounter [facility] System[facility]* Diagnosis Clonic hemifacial spasm, right- Primary documented in this encounter [facility] SystemEvaluation noteNo assessment information availableSelect [facility] Work Phone: Evaluation note* Diagnosis Coronary artery disease involving [place] coronary artery of [place] heart without angina pectoris Essential hypertension Unspecified essential hypertension Mixed hyperlipidemia Ischemic cardiomyopathy Other specified forms of chronic ischemic heart disease Status post coronary artery stent placement Postsurgical percutaneous transluminal coronary angioplasty status Class 2 obesity with body mass index (BMI) of 35.0 to 35.9 in adult, unspecified obesity type, unspecified whether serious comorbidity present documented in this encounter [facility] Work Phone: Evaluation note* Diagnosis Acute exacerbation of chronic obstructive pulmonary disease (CMS/HCC)- Primary Obstructive chronic bronchitis with exacerbation documented in this encounter [facility]* Diagnosis Coronary artery disease involving [place] coronary artery of [place] heart without angina pectoris- Primary Essential hypertension [...] hazards to health documented in this encounter [facility] Work Phone: Evaluation note* Diagnosis Sepsis, due to unspecified organism, unspecified whether acute organ dysfunction present ([facility])- Primary Pneumonia of right middle lobe due to infectious organism Hyponatremia Hyposmolality and/or hyponatremia Essential hypertension ([facility]) Unspecified essential hypertension Chronic systolic congestive heart failure ([facility]) Coronary artery disease involving [place] coronary artery of [place] heart without angina pectoris ([facility]) Gastroesophageal reflux disease without esophagitis Esophageal reflux Benign prostatic hyperplasia without urinary obstruction [facility]* Diagnosis Essential hypertension ([facility]/HCC)- Primary Unspecified essential hypertension Chronic systolic congestive heart failure ([facility]/HCC) Coronary artery disease involving [place] coronary artery of [place] heart without angina pectoris ([facility]) Chronic obstructive pulmonary disease, unspecified COPD type ([facility]) Pure hypercholesterolemia ([facility]) Pure hypercholesterolemia Prediabetes Other abnormal glucose Elevated PSA Elevated prostate specific antigen (PSA) Benign prostatic hyperplasia without urinary obstruction Bacterial pneumonia Unspecified bacterial pneumonia Sinus drainage Other diseases of nasal cavity and sinuses documented in [facility] encounter [facility]* Diagnosis Non-recurrent acute serous otitis media of right ear- Primary documented in this encounter [facility]* Diagnosis Coronary artery disease involving [place] coronary artery of [place] heart without angina pectoris- Primary Essential hypertension Unspecified essential hypertension Ischemic cardiomyopathy Other specified forms of chronic ischemic heart disease Mixed hyperlipidemia Status post coronary artery stent placement Postsurgical percutaneous transluminal coronary angioplasty status Former smoker Personal history of tobacco use, presenting hazards to health BMI 36.0-36.9,adult Class 2 obesity documented in this encounter [facility] Work Phone: Evaluation note* Diagnosis Chronic obstructive pulmonary disease, unspecified COPD type ([facility]/HCC)- Primary Bronchiectasis without complication ([facility]) Rash Rash and other nonspecific skin eruption Skin lesion of back Unspecified disorder of skin and subcutaneous tissue Sebaceous cyst documented in this encounter [facility]* Diagnosis Epidermal inclusion cyst- Primary Sebaceous cyst Erythema intertrigo Other specified erythematous condition documented in this encounter [facility]* Diagnosis Gastroesophageal reflux disease without esophagitis- Primary Esophageal reflux Essential hypertension (CMS/HCC) Unspecified essential hypertension Pure hypercholesterolemia ([facility]/HCC) Pure hypercholesterolemia Chronic systolic (congestive) heart failure Prediabetes Other abnormal glucose Coronary artery disease involving [place] coronary artery of [place] heart without angina pectoris ([facility]/HCC) Severe persistent asthma, uncomplicated (CMS/HCC) Elevated PSA Elevated prostate specific antigen (PSA) BMI 36.0-36.9,adult Morbid (severe) obesity due to excess calories ([facility]) Medicare annual wellness visit, subsequent ACP (advance care planning) Other specified counseling documented in this encounter [facility] Narrative No data available for this section [facility] Hospital Discharge instructions Additional Instructions If your symptoms return/worsen or you develop any further concerns or symptoms please see your doctor or return to the emergency department immediately.[facility] Work Phone: Hospital Discharge instructions No data available for this section [facility] Progress note No data available for this section [facility] Reason for referral (narrative)* Consultation (Routine) - Authorized Specialty Diagnoses / Procedures Referred By Bryon hernandez Referred To Contact Cardiology Diagnoses Coronary artery disease involving [place] coronary artery of [place] heart without angina pectoris Essential hypertension Mixed hyperlipidemia Ischemic cardiomyopathy Status post coronary artery stent placement Class 2 obesity with body mass index (BMI) of 35.0 to 35.9 in adult, unspecified obesity type, unspecified whether serious comorbidity present Procedures Follow Up In Cardiology Rene Cortez MD [address] [facility] 2, [address] [address] Rene Cortez MD [address] [place] [address] Referral ID Status Reason Start Date Expiration Date V isits Requested Visits Authorized [id number] Authorized 03/23/2023 03/22/2024 1 1 [facility] Work Phone: Reason for referral (narrative)* Consultation (Routine) - Authorized Specialty Diagnoses / Procedures Referred By Bryon hernandez Referred To Contact Cardiology Diagnoses Coronary artery disease involving [place] coronary artery of [place] heart without angina pectoris Procedures Follow Up In Cardiology Rene Cortez MD [address] [facility], [address] [place] [address] Rene Cortez MD [address] [facility], [address] [place] [address] Referral ID Status Reason Start Date Expiration Date V isits Requested Visits Authorized [id number] Authorized 10/18/2023 10/17/2024 1 1 [facility] Work Phone: Chief Complaint * [...] infarction with no ischemia. EF in the [id number]. He remains compensated as for ischemic cardiomyopathy. [...] on low-calorie diet * Rene Cortez MD, [facility] * DEMARCUS CALDERON is being seen for [...] on low-calorie diet * Rene Cortez MD, [facility] Family History No Family History Records [...] W/O & W/CONTRAST MATRL Deandra Bender MD [address] [place] [address] Mr Imaging Referral ID Status Reason Start Date Expiration Date Visits Requested Visits Authorized [id number] Pending Review Auto-Generat ed Referral 06/21/2022 07/21/2023 1 1 Specialty Diagnoses / Procedures Referred By Bryon hernandez Referred To Contact MR IMAGING Diagnoses Paralytic strabismus Procedures MRI BRAIN WO/W IVCON MRI BRAIN BRAIN STEM W/O W/CONTRAST MATERIAL Deandra Bender MD [address] [address] Mr Imaging Referral ID Status Reason Start Date Expiration Date Visits Requested Visits Authorized [id number] Pending Review Auto-Generat ed Referral 06/21/2022 07/21/2023 [...] or prosecute any alcohol or drug abuse patient.[facility] Health SystemIn the event this information is protected by the Federal Confidentiality of Alcohol and Drug Abuse Patient Records regulations: The Federal rules restrict any use of the information to criminally investigate or prosecute any alcohol or drug abuse patient.[facility] Health SystemIn the event this information is protected by the Federal Confidentiality of Alcohol and Drug Abuse Patient Records regulations: The Federal rules restrict any use of the information to criminally investigate or prosecute any alcohol or drug abuse patient.[facility] Health SystemIn the event this information is protected by the Federal Confidentiality of Alcohol and Drug Abuse Patient Records regulations: The Federal rules restrict any use of the information to criminally investigate or prosecute any alcohol or drug abuse patient.[facility] Health SystemIn the event this information is protected by the Federal Confidentiality of Alcohol and Drug Abuse Patient Records regulations: The Federal rules restrict any use of the information to criminally investigate or prosecute any alcohol or drug abuse patient.[facility] Reason for Visit (unrecogniz ed [...] up to 100 units Procedures BOTOX EI [id number] [place] [address] [place] [address] Deandra Bender MD [address] [place] [address] Referral ID Status Reason Start Date Expiration Date V isits Requested Visits Authorized [id number] Authorized 11/14/2022 05/27/2023 99 99 Reason Comments Follow-up 6 months Reason Comments Follow-up 6m Specialty Diagnoses / Procedures Referred By Bryon t Referred To Contact Cardiology Diagnoses Coronary artery disease involving [place] coronary artery of [place] heart without angina pectoris Essential hypertension Mixed hyperlipidemia Ischemic cardiomyopathy Status post coronary artery stent placement Class 2 obesity with body mass index (BMI) of 35.0 to 35.9 in adult, unspecified obesity type, unspecified whether serious comorbidity present Procedures Follow Up In Cardiology Rene Cortez MD [address] [place] [address] [address], [address] [address] Rene Cortez MD [address] [place] [address] [address], [address] [address] Referral ID Status Reason Start Date Expiration Date V isits Requested Visits Authorized [id number] Authorized 03/23/2023 03/22/2024 1 1 Reason Comments Hospital Follow-up [facility] dx: sepsis, COPD, pneumonia Reason Comments 6 Month Follow-up Lab drawn 02/27/2024 . Cough Productive cough con tinues with yellow sputum. Occasional shortness of breath. CXR ordered on 02/26 to repeat in 8 weeks Reason Comments Earache Reason Comments Follow-up 6 month Specialty Diagnoses / Procedures Referred By Bryon hernandez Referred To Contact Cardiology Diagnoses Coronary artery disease involving [place] coronary artery of [place] heart without angina pectoris Procedures Follow Up In Cardiology Rene Cortez MD [address] [place] [address] [address], [address] [address] Phone: tel: fax: Rene Cortez MD [address] [place] [address] 2, [address] [address] Phone: tel: fax: Referral ID Status Reason Start Date Expiration Date V Travel and Learning Enterprisests Requested Visits Authorized [id number] Authorized 10/18/2023 10/17/2024 1 1 Reason Comments ER Follow-up [facility] 06/29/2024 dx: COPD exacerbation 2ndry viral infection. He was prescribed Z-Santos, Prednisone and Mucinex. He does continue to have mucus. He is not using Mucinex, reports it does not work. Rash Right axilla Mass Mid back for 2-3 wee ks, painful, hard Reason Comments Suspicious Skin Lesion Rash Specialty Diagnoses / Procedures Referred By Bryon hernandez Referred To Contact Dermatology Diagnoses Skin lesion of back Sebaceous cyst Procedures [place] OFFICE/OUTPATIENT NEW HIGH MDM 60 MINUTES Sally Ba NP [address] [place] [address] Phone: tel: fax: Marybeth Long MD [address] [place] [address] Phone: tel: fax: Referral ID Status Reason Start Date Expiration Date V isits Requested Visits Authorized [id number] Closed Consult and Treat 07/02/2024 12/29/2024 1 1 Reason Comments 6 Month Follow Up of Chronic Conditions Medicare Annual Wellness Visit Mary hernandez ER Follow-up [facility] for CHF. He was advised to resume Lasix, which was discontinued in the past due to low sodium levels. (unrecognized sect ion and content) No Status Records FoundNo Status Records FoundNo Status Records FoundNo Status Records FoundNo Status Records FoundNo Status Records FoundNo Status Records FoundNo Status Records FoundNo Status Records FoundNo Status Records Found INFORMATION SOURCE (unrecogn ized section and content) DATE CREATED AUTHOR 07/16/[address] [facility] dical Specialist DATE CREATED AUTHOR AUTHOR'S ORGANIZ ATION 09/09/2022 [facility] DATE CREATED AUTHOR AUTHOR'S ORGANIZ ATION 11/14/2022 [facility] DATE CREATED AUTHOR AUTHOR'S ORGANIZ ATION 02/12/2023 [facility] DATE CREATED AUTHOR AUTHOR'S ORGANIZ ATION 02/28/2023 [facility] DATE CREATED AUTHOR AUTHOR'S ORGANIZ ATION 06/25/2023 [facility] DATE CREATED AUTHOR AUTHOR'S ORGANIZ ATION 04/29/2024 [facility] DATE CREATED AUTHOR AUTHOR'S ORGANIZ ATION 05/18/2024 [facility] DATE CREATED AUTHOR AUTHOR'S ORGANIZ ATION 08/27/2024 [facility] DATE CREATED AUTHOR AUTHOR'S ORGANIZ ATION 09/29/[address] [facility] dical Specialists [employer] Care Teams (unrecognized sec tion and content) Team Status: Active Member Role Status Dates Sera Flower MD Primary Care Provider Active Team Status: Inactive Member Role Status Dates Sera Flower MD Primary Care Provider, Other Provider Active Rene Cortez MD Attending Provider Active Elementary Education Teacher Relationship Specialty Start Date End Date Sera Flower MD [address] [place] [id number] PCP - General 02/16/21 Team Status: Inactive Member Role Status Dates Sera Flower MD Primary Care Provider Active St art: June 14, 2023 End: June 14, 2023 Jasper Gross DO Emergency Provider Active Start: June 14, 2023 End: June 14, 2023 Elementary Education Teacher Relationship Specialty Start Date End Date Sera Flower MD [address] [place] [address] PCP - Humana 05/28/22 Sera Flower MD [address] [place] [address] PCP - General Internal Medicine 10/03/22 Elementary Education Teacher Relationship Specialty Start Date End Date Sera Flower MD [address] [place] [address] PCP - General 02/16/21 Elementary Education Teacher Relationship Specialty Start Date End Date Sera Flower MD [address] [place] [address] PCP - Humana 05/28/22 Sera Flower MD [address] [place] [address] PCP - General Internal Medicine 10/03/22 Tootie Jacobson RN [address] [place] [address] Registered Nurse Internal Medicine 08/10/23 Rene Cortez MD [address] [facility] [address] [place] [address] Referring Physician Cardiology 09/05/23 Elementary Education Teacher Relationship Specialty Start Date End Date Sera Flower MD [address] [place] [address] PCP - Humana 05/28/22 Sera Flower MD [address] [place] [address] PCP - General Internal Medicine 10/03/22 Tootie Jacobson RN [address] [place] [address] Registered Nurse Internal Medicine 08/10/23 03/28/24 Rene Cortez MD [address] [facility] [address] [place] [address] Referring Physician Cardiology 09/05/23 Elementary Education Teacher Relationship Specialty Start Date End Date Sera Flower MD [address] [place] [address] PCP - Humana 05/28/22 Sera Flower MD [address] [place] [address] PCP - General Internal Medicine 10/03/22 Rene Cortez MD [address] [facility] [address] [place] [address] Referring Physician Cardiology 09/05/23 Orquidea Carreon, RN Registered Nurse Family Medicine 03/28/24 Elementary Education Teacher Relationship Specialty Start Date End Date Sera Flower MD [address] [place] [address] PCP - Humana 05/28/22 Sera Flower MD [address] [place] [address] PCP - General Internal Medicine 10/03/22 Tootie Jacobson RN [address] [place] [address] Registered Nurse Internal Medicine 08/10/23 Rene Cortez MD [address] [facility] [address] [place] [address] Referring Physician Cardiology 09/05/23 Elementary Education Teacher Relationship Specialty Start Date End Date Sera Flower MD [address] [place] [address] PCP - Humana 05/28/22 Sera Flower MD [address] [place] [address] PCP - General Internal Medicine 10/03/22 Tootie Jacobson RN [address] [place] [address] Registered Nurse Internal Medicine 08/10/23 Rene Cortez MD [address] [facility] [address] [place] [address] Referring Physician Cardiology 09/05/23 Elementary Education Teacher Relationship Specialty Start Date End Date Sera Flower MD [address] [place] [address] PCP - Humana 05/28/22 Sera Flower MD [address] [place] [address] PCP - General Internal Medicine 10/03/22 Tootie Jacobson, DOUG [address] [place] [address] Registered Nurse Internal Medicine 08/10/23 Rene Cortez MD [address] [facility] [address] [place] [address] Referring Physician Cardiology 09/05/23 Elementary Education Teacher Relationship Specialty Start Date End Date Sera Flower MD [address] [facility] [place] [phone] PCP - General 02/16/21 Elementary Education Teacher Relationship Specialty Start Date End Date Sera Flower MD [address] [place] [address] PCP - Humana 05/28/22 Sera Flower MD [address] [place] [address] PCP - General Internal Medicine 10/03/22 Rene Cortez MD [address] [facility] [address] [place] [address] Referring Physician Cardiology 09/05/23 Orquidea Shah, RN Registered Nurse Internal Medicine 06/03/24 Elementary Education Teacher Relationship Specialty Start Date End Date Sera Flower MD [address] [place] [address] PCP - Humana 05/28/22 Sera Flower MD [address] [place] [address] PCP - General Internal Medicine 10/03/22 Rene Cortez MD [address] [facility] [address] [place] [address] Referring Physician Cardiology 09/05/23 Orquidea Shah RN Registered Nurse Internal Medicine 06/03/24 Elementary Education Teacher Relationship Specialty Start Date End Date Sera Flower MD [address] [place] [address] PCP - Humana 05/28/22 Sera Flower MD [address] [place] [address] PCP - General Internal Medicine 10/03/22 Rene Cortez MD [address] [facility] [address] [place] [address] Referring Physician Cardiology 09/05/23 Orquidea Shah RN Registered Nurse Internal Medicine 06/03/24 Elementary Education Teacher Relationship Specialty Start Date End Date Sera Flower MD [address] [place] [address] PCP - Humana 05/28/22 Sera Flower MD [address] [place] [address] PCP - General Internal Medicine 10/03/22 Rene Cortez MD [address] [facility] [address] [place] [address] Referring Physician Cardiology 09/05/23 Orquidea Shah RN Registered Nurse Internal Medicine 06/03/24 Evens Morgan MD 7[address] [facility] [address] [place] [address] Referring Physician Pulmonary Disease 09/24/24 John Baptiste MD [address] [place] [address] Referring Physician Urology 09/24/24 Jessica Busby NP [address] [facility] [place] [address] Nurse Practitioner Family Medicine 09/24/24 [facility] Optometry 09/24/24 Goals (unrecognized section and content) Goals may [...] BE BASED ON THE PRIMARY CLINICAL RECORDS. [facility]. provides no warranty or guarantee of the accuracy or completeness of information in this document.
--- NOTE | 2024-10-03 17:34 | ECG_ITS ---
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 Measurements Intervals [place] Rate: 74 P: 30 NC: 158 QRS: -12 QRSD: 98 T: 113 QT: 382 QTc: 410 Interpretive Statements 1100 Sinus rhythm 5234 Left ventricular hypertrophy with repolarization abnormality 9150 abnormal ECG Compared to ECG 09/25/2024 11:23:51 Early repolarization now present Ventricular premature complex(es) no longer present Electronically Signed On 10-03-2024 18:49:24 EDT by MELANY CHEN M.D.
--- NOTE | 2024-10-03 17:35 | ED.GENADUL1 ---
HPI HPI - General Adult General Chief complaint: Upper Respiratory Infection Stated complaint: WEAKNESS, COUGH Time Seen by Provider: 10/03/24 16:58 Source: patient Mode of arrival: walk-in History of Present Illness HPI narrative: Patient is a 69-year-old male with a history of CHF, emphysema who presents to the emergency department for a 1 day history of chills and increased cough. He is concerned he may be developing pneumonia. He has been hospitalized for pneumonia in the past. He has had no objective fevers. He states earlier today he had left-sided chest pain with coughing that immediately resolved. He has no persistent pain, nausea, vomiting, leg swelling. No sick contacts in the home. No medications taken prior to arrival. Related Data Home Medications ?Medication ?Instructions ?Recorded ?Confirmed carvedilol 6.25 mg tablet 6.25 mg PO Q12H 07/22/23 09/22/24 losartan 50 mg tablet 50 mg PO DAILY 07/22/23 09/22/24 omeprazole 20 mg capsule,delayed 20 mg PO Q24H 07/22/23 09/22/24 release tamsulosin 0.4 mg capsule 0.4 mg PO DAILY 07/22/23 09/22/24 sildenafil 100 mg tablet 100 mg PO Q24H PRN erectile 02/17/24 09/22/24 dysfunction Previous Rx's ?Medication ?Instructions ?Recorded albuterol sulfate 90 mcg/actuation 2 inh inhalation Q6H PRN shortness 12/25/23 aerosol inhaler (Ventolin HFA) of breath or wheezing #6.7 grams furosemide 40 mg tablet (Lasix) 40 mg PO DAILY #30 tabs 12/25/23 ipratropium 0.5 mg-albuterol 3 mg 3 ml inhalation Q6H PRN shortness 02/02/24 (2.5 mg base)/3 mL nebulization of breath #90 mL soln doxycycline hyclate 100 mg capsule 100 mg PO BID 10 days #20 caps 09/25/24 prednisone 20 mg tablet 40 mg (2 x 20 mg) PO DAILY 5 days 09/25/24 #10 tabs Allergies Allergy/AdvReac Type Severity Reaction Status Date / Time codeine Allergy Intermediate Hallucinati Verified 09/22/24 12:12 ng Opioid HPI Opioid Management Most Recent Opioid Data: Last Pain Scale 3 02/16/24, 09:49 Last ORT Total Score 0 09/22/24, 13:11 Last ORT Risk Category Low Risk 02/17/24, 13:11 Review of Systems ROS Constitutional Reports: chills; Denies: fever Ears, nose, mouth, and throat Denies: throat pain or nasal congestion Cardiovascular Reports: chest pain Respiratory Reports: shortness of breath and cough Gastrointestinal Denies: nausea, vomiting or constipation Musculoskeletal Denies: back pain or neck pain Integumentary/Breast Denies: rash Neurological Denies: numbness in extremities or weakness in extremities Hematologic/Lymphatic Denies: easy bruising or easy bleeding [facility] Medical History Pneumonia due to COVID-19 virus ?U07.1 - COVID-19 (ICD-10) ?J12.82 - Pneumonia due to coronavirus disease 2019 (ICD-10) COVID-19 ?U07.1 - COVID-19 (ICD-10) Acute on chronic congestive heart failure ?I50.9 - Heart failure, unspecified (ICD-10) COPD exacerbation ?J44.1 - Chronic obstructive pulmonary disease with (acute) exacerbation (ICD-10) Congestive heart failure ?I50.9 - Heart failure, unspecified (ICD-10) BPH (benign prostatic hyperplasia) ?N40.0 - Benign prostatic hyperplasia without lower urinary tract symptoms (ICD-10) CAD (coronary artery disease) ?I25.10 - Atherosclerotic heart disease of [place] coronary artery without angina pectoris (ICD-10) GERD (gastroesophageal reflux disease) ?K21.9 - Gastro-esophageal reflux disease without esophagitis (ICD-10) Hypertension ?I10 - Essential (primary) hypertension (ICD-10) COPD (chronic obstructive pulmonary disease) ?J44.9 - Chronic obstructive pulmonary disease, unspecified (ICD-10) Bronchitis ?J40 - Bronchitis, not specified as acute or chronic (ICD-10) Emphysema of lung ?J43.9 - Emphysema, unspecified (ICD-10) Heart attack ?I21.9 - Acute myocardial infarction, unspecified (ICD-10) COPD exacerbation ?J44.1 - Chronic obstructive pulmonary disease with (acute) exacerbation (ICD-10) COVID-19 ?U07.1 - COVID-19 (ICD-10) Surgical History H/O sinus surgery ?Z98.890 - Other specified postprocedural states (ICD-10) H/O shoulder surgery ?Z98.890 - Other specified postprocedural states (ICD-10) H/O heart artery stent ?Z95.5 - Presence of coronary angioplasty implant and graft (ICD-10) Family History Aunt Family history of cancer Mother Family history of diabetes mellitus Brother Family history of hypertension Father Family history of hypertension Social History Within the past year, how often did you have a drink containing alcohol: never Score interpretation: A score less than 4 is consistent with normal alcohol consumption. 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 Known occupational exposures/hazards: No Highest level of school completed/degree received: high school graduate Are you now , , , , never or living with a partner: In a typical week, how many times do you talk on the telephone with family, friends, or neighbors: 3 or more times per week How often do you get together with friends or relatives: 3 or more times per week How often do you attend methodist or confucianist services: never Little interest or pleasure in doing things: not at all Feeling down, depressed, or hopeless: not at all Feel stressed/tense/nervous/anxious/difficulty sleeping: not at all Do you think of yourself as: straight/heterosexual Gender Identity: male Exam Narrative Exam Narrative: Gen.: Awake, alert, in no distress Head: Normocephalic, atraumatic ENT: Moist mucous membranes Respiratory: No respiratory distress, harsh cough with expiratory wheezing noted faintly in the right upper lobe Cardio: Regular rate and rhythm Gastrointestinal: Abdomen is soft, nondistended and nontender to palpation Extremities: Moves extremities equally, no injuries noted Psych: Normal mood and affect Neuro: No focal neuro deficit Skin: Warm, dry, intact Constitutional Vital Signs, click to edit/add: Last Vital Signs Temp 98.2 F 10/03/24 17:03 Pulse 77 10/03/24 18:14 Resp 18 10/03/24 18:14 BP 147/80 H 10/03/24 17:03 Pulse Ox 95 10/03/24 18:14 O2 Del Method Room Air 10/03/24 18:14 Course Vital Signs Vital signs: Vital Signs Temperature 98.2 F 10/03/24 17:03 Pulse Rate 78 10/03/24 17:03 Respiratory Rate 20 10/03/24 17:03 Blood Pressure 147/80 H 10/03/24 17:03 Pulse Oximetry 95 10/03/24 17:03 Oxygen Delivery Method Room Air 10/03/24 17:03 Temperature 98.2 F 10/03/24 17:03 Pulse Rate 77 10/03/24 18:14 Respiratory Rate 18 10/03/24 18:14 Blood Pressure 147/80 H 10/03/24 17:03 Pulse Oximetry 95 10/03/24 18:14 Oxygen Delivery Method Room Air 10/03/24 18:14 Medical Decision Making MDM Narrative Medical decision making narrative: Patient treated with Solu-Medrol, breathing treatment, he reports feeling better. Chest x-ray shows no evidence of pneumonia. Laboratory studies reviewed and noted within normal limits although the patient has hyponatremia. He has evidence of hyponatremia in the past. He has no evidence of CHF or fluid overload at this time so he was given IV fluids for replenishment of his sodium. He is comfortable with discharge home and states he is already feeling better. He has an albuterol inhaler at home. Suspect COPD exacerbation. He was just treated last week from this emergency department with steroids and antibiotics we will defer additional steroid taper at this time. Follow-up with PCP and return to the ER if symptoms change or worsen SUPERVISED APC VISIT, PHYSICIAN ATTESTATION: Based on the medical record the care appears appropriate. ? Medical Records Medical records reviewed: Yes I reviewed the patient's medical records Lab Data Lab results reviewed: Yes I reviewed the patient's lab results Labs: Lab Results 10/03/24 10/03/24 Range/Units 17:23 17:44 WBC 10.0 (4.0-11.0) 10^3/uL RBC 4.77 (4.70-6.10) 10^6/uL Hgb 13.7 L (14.0-18.0) g/dL Hct 40.3 L (42.0-54.0) % MCV 84.5 (80.0-94.0) fL MCH 28.7 (25.9-34.0) pg MCHC 34.0 (29.9-35.2) g/dL RDW 14.5 (11.0-15.0) % Plt Count 198 (150-450) 10^3/uL MPV 9.8 (9.5-13.5) fL Neut % (Auto) 67.2 (43.0-75.0) % Lymph % (Auto) 13.7 L (20.5-60.0) % [place] % (Auto) 11.6 (1.7-12.0) % Eos % (Auto) 6.1 (0.9-7.0) % Baso % (Auto) 0.4 (0.2-2.0) % Neut # (Auto) 6.7 H (1.4-6.5) 10^3/uL Lymph # (Auto) 1.4 (1.2-3.8) 10^3/uL [place] # (Auto) 1.2 H (0.3-0.8) 10^3/uL Eos # (Auto) 0.6 (0.0-0.7) 10^3/uL Baso # (Auto) 0.0 (0.0-0.1) 10^3/uL Abs Immat Gran (auto) 0.10 H (0.00-0.03) 10^3/uL Imm/Tot Granulo (auto) 1.0 H (0.0-0.5) % PT 10.8 (9.0-11.6) sec INR 1.02 VBG pH 7.485 H (7.330-7.430) VBG pCO2 30.9 L (40.0-52.0) mmHg Sodium 126 L (136-145) mmol/L Potassium 4.2 (3.5-5.1) mmol/L Chloride 93 L (98-107) mmol/L Carbon Dioxide 25.1 (21.0-32.0) mmol/L Anion Gap 12.1 BUN 16.0 (7.0-18.0) mg/dL Creatinine 1.06 (0.70-1.30) mg/dL Est GFR ( Amer) >60 (>=60 mL/min/1.73m^2) Est GFR (Non-Af Amer) >60 (>=60 mL/min/1.73m^2) BUN/Creatinine Ratio 15.1 Glucose 118 H (74-106) mg/dL Lactate 0.9 (0.4-2.0) mmol/L Calcium 9.0 (8.5-10.1) mg/dL Magnesium 2.1 (1.8-2.4) mg/dL Total Bilirubin 0.7 (0.2-1.0) mg/dL AST 21 (15-37) U/L ALT 39 (16-63) U/L Alkaline Phosphatase 68 (46-116) U/L Troponin I High Sens 16.1 (4.0-76.1) pg/mL NT-Pro-B Natriuret Pep 556.0 (<=900.0) pg/mL Total Protein 6.2 L (6.4-8.2) g/dL Albumin 3.2 L (3.4-5.0) g/dL Globulin 3.0 g/dL Albumin/Globulin Ratio 1.1 Influenza Type A Ag Negative Influenza Type B Ag Negative SARS-CoV-2 Ag (CV2AG) Negative (NEGATIVE) Imaging Data Chest x-ray: Attestation: I have reviewed the pertinent imaging results. ECG Data Attestation: I personally reviewed and interpreted this ECG as follows: (Normal sinus rhythm at a rate of [address] elevation or ectopy. EKG reviewed by attending physician) Discharge Plan Discharge Chief Complaint: Upper Respiratory Infection Clinical Impression: COPD exacerbation, Acute hyponatremia Patient Disposition: Home, Self-Care Time of Disposition Decision: 19:08 Condition: Good Prescriptions / Home Meds: No Action furosemide [Lasix] 40 mg tablet 40 mg PO DAILY Qty: 30 0RF albuterol sulfate [Ventolin HFA] 90 mcg/actuation HFA aerosol inhaler 2 inh inhalation Q6H PRN (Reason: shortness of breath or wheezing) Qty: 6.7 0RF doxycycline hyclate 100 mg capsule 100 mg PO BID 10 Days Qty: 20 0RF prednisone 20 mg tablet 40 mg PO DAILY 5 Days Qty: 10 0RF tamsulosin 0.4 mg capsule 0.4 mg PO DAILY carvedilol 6.25 mg tablet 6.25 mg PO Q12H losartan 50 mg tablet 50 mg PO DAILY omeprazole 20 mg capsule,delayed release(DR/EC) 20 mg PO Q24H ipratropium-albuterol 0.5 mg-3 mg(2.5 mg base)/3 mL solution for nebulization 3 ml inhalation Q6H PRN (Reason: shortness of breath) Qty: 90 0RF sildenafil 100 mg tablet 100 mg PO Q24H PRN (Reason: erectile dysfunction) Print Language: Spanish Instructions: Hyponatremia (ED), COPD (Chronic Obstructive Pulmonary Disease) (ED) Referrals: Torres Klein MD [Primary Care Provider, Family Practice] - 1 week
[2024-10-03 17:55] LABS: Basophils Percent Auto 0.4 % (0.2-2.0); Eosinophils Absolute Auto 0.6 10^3/uL (0.0-0.7); Eosinophils Percent Auto 6.1 % (0.9-7.0); Hematocrit 40.3 % (42.0-54.0); Hemoglobin 13.7 g/dL (14.0-18.0); Lymphocytes Absolute Auto 1.4 10^3/uL (1.2-3.8); Lymphocytes Percent Auto 13.7 % (20.5-60.0); Mean Corpuscular Hemoglobin 28.7 pg (25.9-34.0); Mean Corpuscular Volume 84.5 fL (80.0-94.0); Mean Platelet Volume 9.8 fL (9.5-13.5); Monocytes Absolute Auto 1.2 10^3/uL (0.3-0.8); Monocytes Percent Auto 11.6 % (1.7-12.0); Neutrophils Absolute Auto 6.7 10^3/uL (1.4-6.5); Neutrophils Percent Auto 67.2 % (43.0-75.0); Platelet Count 198 10^3/uL (150-450); Red Blood Count 4.77 10^6/uL (4.70-6.10); Red Cell Distribution Width 14.5 % (11.0-15.0)
[2024-10-03 17:58] LABS: PCO2 VBG 30.9 mmHg (40.0-52.0); pH VBG 7.485 (7.330-7.430)
[2024-10-03 17:59] LABS: Influenza Virus A Antigen Negative; Influenza Virus B Antigen Negative; Internal Control Within Normal Limits; SARS-CoV-2 Ag NEGATIVE (NEGATIVE)
[2024-10-03] MEDS: METHYLPREDNISOLONE SOD SUCC PF 125 MG/2 ML VIAL IVP (18:02)
[2024-10-03] MEDS: ALBUTEROL SULFATE 2.5 MG/3 ML VIAL NEB IH (18:12)
[2024-10-03 18:18] LABS: Lactate/Lactic Acid 0.9 mmol/L (0.4-2.0)
[2024-10-03 18:23] LABS: INR 1.02; Prothrombin Time 10.8 sec (9.0-11.6)
[2024-10-03 18:25] LABS: Alanine Aminotransferase 39 U/L (16-63); Albumin Globulin Ratio 1.1; Albumin Level 3.2 g/dL (3.4-5.0); Alkaline Phosphatase 68 U/L (46-116); Anion Gap 12.1; Aspartate Amino Transferase 21 U/L (15-37); BUN Creatinine Ratio 15.1; Bilirubin Total 0.7 mg/dL (0.2-1.0); Carbon Dioxide 25.1 mmol/L (21.0-32.0); Chloride 93 mmol/L (98-107); Estimated GFR (African America >60 (>=60 mL/min/1.73m^2); Estimated GFR (Non-African Ame >60 (>=60 mL/min/1.73m^2); Glucose 118 mg/dL (74-106); Magnesium 2.1 mg/dL (1.8-2.4); Potassium 4.2 mmol/L (3.5-5.1); Sodium 126 mmol/L (136-145); Total Protein 6.2 g/dL (6.4-8.2); Troponin I High Sensitivity 16.1 pg/mL (4.0-76.1)
[2024-10-03] MEDS: 0.9 % SODIUM CHLORIDE 1,000 ML 250 ML IV (19:00)
== END 2024-10-03 19:51 | disposition home or self-care (01) ==
PROVIDERS: Physician Assistant; Emergency Provider Emergency Medicine; PCP Family Medicine
DX: J43.9 Emphysema, unspecified (principal); E87.1 Hypo-osmolality and hyponatremia; I50.9 Heart failure, unspecified; Z87.01 Personal history of pneumonia (recurrent); R07.9 Chest pain, unspecified; R06.02 Shortness of breath; Z95.5 Presence of coronary angioplasty implant and graft; Z87.891 Personal history of nicotine dependence
CPT/HCPCS: 36415; 71046; 80053; 82800; 83605; 83735; 83880; 84484; 85025; 85610; 87804; 87811; 93005; 94640; 96374; 99285; J2919

== ENCOUNTER 2024-10-06 11:18 | Outpatient (OUT) | payer MEDICARE, OTHER, SELFPAY ==
[2024-10-06 11:41] LABS: Basophils Absolute Auto 0.1 10^3/uL (0.0-0.1); Basophils Percent Auto 0.5 % (0.2-2.0); Eosinophils Absolute Auto 0.5 10^3/uL (0.0-0.7); Eosinophils Percent Auto 5.3 % (0.9-7.0); Hematocrit 40.9 % (42.0-54.0); Immature Granulocytes Abs Auto 0.04 10^3/uL (0.00-0.03); Immature Granulocytes Pct Auto 0.4 % (0.0-0.5); Lymphocytes Absolute Auto 1.1 10^3/uL (1.2-3.8); Lymphocytes Percent Auto 10.9 % (20.5-60.0); Mean Corpuscular HGB Conc 34.2 g/dL (29.9-35.2); Mean Corpuscular Hemoglobin 28.6 pg (25.9-34.0); Mean Corpuscular Volume 83.6 fL (80.0-94.0); Mean Platelet Volume 9.8 fL (9.5-13.5); Monocytes Percent Auto 10.7 % (1.7-12.0); Neutrophils Absolute Auto 6.9 10^3/uL (1.4-6.5); Neutrophils Percent Auto 72.2 % (43.0-75.0); Platelet Count 203 10^3/uL (150-450); Red Blood Count 4.89 10^6/uL (4.70-6.10); Red Cell Distribution Width 14.6 % (11.0-15.0); White Blood Count 9.6 10^3/uL (4.0-11.0)
[2024-10-06 12:17] LABS: Alanine Aminotransferase 39 U/L (16-63); Albumin Globulin Ratio 0.9; Albumin Level 3.2 g/dL (3.4-5.0); Alkaline Phosphatase 70 U/L (46-116); Anion Gap 11.5; Aspartate Amino Transferase 23 U/L (15-37); BUN Creatinine Ratio 13.8; Bilirubin Total 0.6 mg/dL (0.2-1.0); Calcium 8.7 mg/dL (8.5-10.1); Carbon Dioxide 27.2 mmol/L (21.0-32.0); Chloride 96 mmol/L (98-107); Estimated GFR (African America >60 (>=60 mL/min/1.73m^2); Estimated GFR (Non-African Ame >60 (>=60 mL/min/1.73m^2); Globulin 3.5 g/dL; Glucose 116 mg/dL (74-106); Potassium 3.7 mmol/L (3.5-5.1); Sodium 131 mmol/L (136-145); Total Protein 6.7 g/dL (6.4-8.2)
== END 2024-10-06 11:19 | disposition home or self-care (01) ==
LOC: LAB 11:23
PROVIDERS: PCP Family Medicine; Visit Provider Family Medicine
DX: Z79.51 Long term (current) use of inhaled steroids (principal); E87.1 Hypo-osmolality and hyponatremia
CPT/HCPCS: 36415; 80053; 85025

== ENCOUNTER 2024-10-06 11:36 | Emergency (ER) | payer MEDICARE, OTHER, SELFPAY ==
[2024-10-06 11:39] VITALS: BP 114/77; PULSE 85; TEMP 37.8; O2SAT 96; BMI 35.0
--- NOTE | 2024-10-06 11:49 | ECG_ITS ---
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 Measurements Intervals [place] Rate: 85 P: 39 SD: 160 QRS: -7 QRSD: 98 T: 66 QT: 368 QTc: 411 Interpretive Statements 1100 Sinus rhythm 4068 Nonspecific [place] abnormality 5233 Voltage criteria for LVH 9150 abnormal ECG Compared to ECG 10/03/2024 17:40:37 No significant changes Electronically Signed On 10-06-2024 13:52:02 EDT by MELANY CHEN M.D.
--- NOTE | 2024-10-06 11:49 | XR_ITS ---
The [place] [id number] Patient Name: DEMARCUS CALDERON MRN: [id number] date: 1955 Sex: M Assigned Patient Location: ER Current Patient Location: ER Accession/Order Number: [id number] Exam Date: 10/06/2024 12:17 Report Date: 10/06/2024 12:25 At the request of: INDRA BERNARD MD Procedure: XR chest 1V PORTABLE AP ERECT CHEST 1100 hours CLINICAL HISTORY: cough COMPARISON: 10/03/2024 Patient is slightly rotated. The heart remains borderline prominent. Mild peribronchial thickening is seen. There is still minor reticular change with some associated nodularity at the left lower lung. There is no developing consolidation, sizable effusion or pneumothorax. The bony structures are osteopenic. XR/XR chest 1V IMPRESSION: CONTINUED BORDERLINE CARDIOMEGALY. MINOR PARENCHYMAL CHANGES, GREATEST AT THE LEFT BASE. Impression dictated by: Lisa Barillas M.D. 10/06/2024 12:25 PM Dictation Location: [place] [address] Electronically authenticated by: [id number] Y Date: 10/06/2024 12:25
--- NOTE | 2024-10-06 11:52 | ED.GENADUL1 ---
HPI HPI - General Adult General Chief complaint: Weakness Stated complaint: weakness Time Seen by Provider: 10/06/24 11:46 Source: patient Mode of arrival: walk-in Limitations: no limitations History of Present Illness HPI narrative: 69 male presents for feeling generally weak. He was seen here last week and was diagnosed with hyponatremia. He did not require admission to hospital. He had some outpatient blood work drawn today and he came to the emergency department. He has been coughing up some clear phlegm for the past day. No hemoptysis or fever. He was however noted to have a temperature of 100 degrees at triage. Related Data Home Medications ?Medication ?Instructions ?Recorded ?Confirmed carvedilol 6.25 mg tablet 6.25 mg PO Q12H 07/22/23 10/06/24 losartan 50 mg tablet 50 mg PO DAILY 07/22/23 10/06/24 omeprazole 20 mg capsule,delayed 20 mg PO Q24H 07/22/23 10/06/24 release tamsulosin 0.4 mg capsule 0.4 mg PO DAILY 07/22/23 10/06/24 sildenafil 100 mg tablet 100 mg PO Q24H PRN erectile 02/17/24 10/06/24 dysfunction Previous Rx's ?Medication ?Instructions ?Recorded albuterol sulfate 90 mcg/actuation 2 inh inhalation Q6H PRN shortness 12/25/23 aerosol inhaler (Ventolin HFA) of breath or wheezing #6.7 grams furosemide 40 mg tablet (Lasix) 40 mg PO DAILY #30 tabs 12/25/23 ipratropium 0.5 mg-albuterol 3 mg 3 ml inhalation Q6H PRN shortness 02/02/24 (2.5 mg base)/3 mL nebulization of breath #90 mL soln doxycycline hyclate 100 mg capsule 100 mg PO BID 10 days #20 caps 09/25/24 prednisone 20 mg tablet 40 mg (2 x 20 mg) PO DAILY 5 days 09/25/24 #10 tabs azithromycin 250 mg tablet See Rx Instructions PO .COMPLEX #6 10/06/24 (Zithromax Z-Santos) tabs Allergies Allergy/AdvReac Type Severity Reaction Status Date / Time codeine Allergy Intermediate Hallucinati Verified 09/22/24 12:12 ng Opioid HPI Opioid Management Most Recent Opioid Data: Last Pain Scale 3 09/21/24, 09:49 Last ORT Total Score 0 02/17/24, 13:11 Last ORT Risk Category Low Risk 02/17/24, 13:11 Review of Systems ROS Narrative A ten point review of systems is negative except as noted above. [facility] Medical History Pneumonia due to COVID-19 virus ?U07.1 - COVID-19 (ICD-10) ?J12.82 - Pneumonia due to coronavirus disease 2019 (ICD-10) COVID-19 ?U07.1 - COVID-19 (ICD-10) Acute on chronic congestive heart failure ?I50.9 - Heart failure, unspecified (ICD-10) COPD exacerbation ?J44.1 - Chronic obstructive pulmonary disease with (acute) exacerbation (ICD-10) Congestive heart failure ?I50.9 - Heart failure, unspecified (ICD-10) BPH (benign prostatic hyperplasia) ?N40.0 - Benign prostatic hyperplasia without lower urinary tract symptoms (ICD-10) CAD (coronary artery disease) ?I25.10 - Atherosclerotic heart disease of [place] coronary artery without angina pectoris (ICD-10) GERD (gastroesophageal reflux disease) ?K21.9 - Gastro-esophageal reflux disease without esophagitis (ICD-10) Hypertension ?I10 - Essential (primary) hypertension (ICD-10) COPD (chronic obstructive pulmonary disease) ?J44.9 - Chronic obstructive pulmonary disease, unspecified (ICD-10) Bronchitis ?J40 - Bronchitis, not specified as acute or chronic (ICD-10) Emphysema of lung ?J43.9 - Emphysema, unspecified (ICD-10) Heart attack ?I21.9 - Acute myocardial infarction, unspecified (ICD-10) COPD exacerbation ?J44.1 - Chronic obstructive pulmonary disease with (acute) exacerbation (ICD-10) COVID-19 ?U07.1 - COVID-19 (ICD-10) Surgical History H/O sinus surgery ?Z98.890 - Other specified postprocedural states (ICD-10) H/O shoulder surgery ?Z98.890 - Other specified postprocedural states (ICD-10) H/O heart artery stent ?Z95.5 - Presence of coronary angioplasty implant and graft (ICD-10) Family History Aunt Family history of cancer Mother Family history of diabetes mellitus Brother Family history of hypertension Father Family history of hypertension Social History Within the past year, how often did you have a drink containing alcohol: never Score interpretation: A score less than 4 is consistent with normal alcohol consumption. 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 Known occupational exposures/hazards: No Highest level of school completed/degree received: high school graduate Are you now , , , , never or living with a partner: In a typical week, how many times do you talk on the telephone with family, friends, or neighbors: 3 or more times per week How often do you get together with friends or relatives: 3 or more times per week How often do you attend restorationist or adventism services: never Little interest or pleasure in doing things: not at all Feeling down, depressed, or hopeless: not at all Feel stressed/tense/nervous/anxious/difficulty sleeping: not at all Do you think of yourself as: straight/heterosexual Gender Identity: male Exam Narrative Exam Narrative: Nurses note and vital signs reviewed and patient is not hypoxic. General: The patient appears well and in no apparent distress. Patient is resting comfortably on cart. He was walking around the room when I walked into the room Skin: Warm, dry, no pallor noted. There is no rash noted. Head: Normocephalic, atraumatic Eye: Normal conjunctiva, no drainage Ears, Nose, Mouth, and Throat: oral mucosa is moist. Nares patent. Cardiovascular: Regular Rate and Rhythm Respiratory: Patient is in no distress, no accessory muscle use, lungs are clear to auscultation, no wheezing, rales or rhonchi Back: non-tender GI: Soft and nontender Musculoskeletal: The patient has no evidence of calf tenderness, no pitting edema, symmetrical pulses noted bilaterally Neurological: A&O, normal speech Psychiatric: Cooperative Constitutional Vital Signs, click to edit/add: Last Vital Signs Temp 100.0 F 10/06/24 11:39 Pulse 85 10/06/24 11:39 Resp 18 10/06/24 11:39 BP 114/77 10/06/24 11:39 Pulse Ox 96 10/06/24 11:39 O2 Del Method Room Air 10/06/24 11:39 Course Vital Signs Vital signs: Vital Signs Temperature 100.0 F 10/06/24 11:39 Pulse Rate 85 10/06/24 11:39 Respiratory Rate 18 10/06/24 11:39 Blood Pressure 114/77 10/06/24 11:39 Pulse Oximetry 96 10/06/24 11:39 Oxygen Delivery Method Room Air 10/06/24 11:39 Temperature 100.0 F 10/06/24 11:39 Pulse Rate 85 10/06/24 11:39 Respiratory Rate 18 10/06/24 11:39 Blood Pressure 114/77 10/06/24 11:39 Pulse Oximetry 96 10/06/24 11:39 Oxygen Delivery Method Room Air 10/06/24 11:39 Medical Decision Making MDM Narrative Medical decision making narrative: Sodium is up to 133 today. He had a mild fever here but no obvious source of an infection. Chest x-ray does not show definite infiltrate and urinalysis is negative. He was given IV fluids and Tylenol. I spoke to Dr. Pardo and the patient will be discharged home on Zithromax. Treatment diagnosis and follow-up were discussed with the patient Differential Diagnosis Differential Diagnosis: Hyponatremia, pneumonia, UTI, viral illness Medical Records Medical records reviewed: Yes I reviewed the patient's medical records Lab Data Lab results reviewed: Yes I reviewed the patient's lab results Labs: Lab Results 10/06/24 10/06/24 10/06/24 Range/Units 12:07 12:10 12:24 WBC 9.5 (4.0-11.0) 10^3/uL RBC 4.96 (4.70-6.10) 10^6/uL Hgb 14.1 (14.0-18.0) g/dL Hct 41.1 L (42.0-54.0) % MCV 82.9 (80.0-94.0) fL MCH 28.4 (25.9-34.0) pg MCHC 34.3 (29.9-35.2) g/dL RDW 14.7 (11.0-15.0) % Plt Count 201 (150-450) 10^3/uL MPV 10.3 (9.5-13.5) fL Neut % (Auto) 72.3 (43.0-75.0) % Lymph % (Auto) 10.4 L (20.5-60.0) % [place] % (Auto) 10.7 (1.7-12.0) % Eos % (Auto) 5.6 (0.9-7.0) % Baso % (Auto) 0.4 (0.2-2.0) % Neut # (Auto) 6.9 H (1.4-6.5) 10^3/uL Lymph # (Auto) 1.0 L (1.2-3.8) 10^3/uL [place] # (Auto) 1.0 H (0.3-0.8) 10^3/uL Eos # (Auto) 0.5 (0.0-0.7) 10^3/uL Baso # (Auto) 0.0 (0.0-0.1) 10^3/uL Abs Immat Gran (auto) 0.06 H (0.00-0.03) 10^3/uL Imm/Tot Granulo (auto) 0.6 H (0.0-0.5) % Sodium 133 L (136-145) mmol/L Potassium 4.4 (3.5-5.1) mmol/L Chloride 96 L (98-107) mmol/L Carbon Dioxide 26.0 (21.0-32.0) mmol/L Anion Gap 15.4 BUN 15.0 (7.0-18.0) mg/dL Creatinine 0.99 (0.70-1.30) mg/dL Est GFR ( Amer) >60 (>=60 mL/min/1.73m^2) Est GFR (Non-Af Amer) >60 (>=60 mL/min/1.73m^2) BUN/Creatinine Ratio 15.2 Glucose 117 H (74-106) mg/dL Calcium 9.0 (8.5-10.1) mg/dL Urine Color Lt. yellow (YELLOW) Urine Clarity Clear (CLEAR) Urine pH 6.0 (5.0-9.0) Ur Specific [place] 1.010 (1.005-1.025) Urine Protein Negative (NEG/TRACE) mg/dL Urine Glucose (UA) Negative (NEGATIVE) mg/dL Urine Ketones Negative (NEGATIVE) mg/dL Urine Occult Blood Negative (NEGATIVE) Urine Nitrite Negative (NEGATIVE) Urine Bilirubin Negative (NEGATIVE) Urine Urobilinogen 0.2 (0.2-1.0) EU/dL Ur Leukocyte Esterase Negative (NEGATIVE) Urine RBC 0-2 (0-2) #/HPF Urine WBC None seen (NONE SEEN) #/HPF Ur Squamous Epith Cells None seen (NONE/RARE) #/LPF Urine Crystals None seen (None Seen) #/HPF Urine Bacteria None seen (NONE SEEN) #/HPF Urine Casts None seen (NONE SEEN) #/LPF Urine Mucus None seen (NONE SEEN) Influenza Type A Ag Negative Influenza Type B Ag Negative SARS-CoV-2 Ag (CV2AG) Negative (NEGATIVE) Imaging Data Chest x-ray: Radiologist's impression: ITS Impressions Chest X-Ray 10/06/24 11:49 IMPRESSION: CONTINUED BORDERLINE CARDIOMEGALY. MINOR PARENCHYMAL CHANGES, GREATEST AT THE LEFT BASE. Impression dictated by: Lisa Barillas M.D. 10/06/2024 12:25 PM Dictation Location: [place] [address] Electronically authenticated by: [id number] Y Date: 10/06/2024 12:25 ECG Data Attestation: I personally reviewed and interpreted this ECG as follows: (EKG on my interpretation shows normal sinus rhythm with rate of 85 and no acute change) Discharge Plan Discharge Chief Complaint: Weakness Clinical Impression: URI (upper respiratory infection) Patient Disposition: Home, Self-Care Time of Disposition Decision: 13:33 Condition: Good Mode of Transportation: Private Vehicle Prescriptions / Home Meds: New azithromycin [Zithromax Z-Santos] 250 mg tablet See Rx Instructions .ROUTE .COMPLEX Qty: 6 0RF Rx Instructions: For 250 mg dose pack: take 500 mg today (day 1), then 250 mg for 4 days (days 2-5) No Action furosemide [Lasix] 40 mg tablet 40 mg PO DAILY Qty: 30 0RF albuterol sulfate [Ventolin HFA] 90 mcg/actuation HFA aerosol inhaler 2 inh inhalation Q6H PRN (Reason: shortness of breath or wheezing) Qty: 6.7 0RF doxycycline hyclate 100 mg capsule 100 mg PO BID 10 Days Qty: 20 0RF prednisone 20 mg tablet 40 mg PO DAILY 5 Days Qty: 10 0RF tamsulosin 0.4 mg capsule 0.4 mg PO DAILY carvedilol 6.25 mg tablet 6.25 mg PO Q12H losartan 50 mg tablet 50 mg PO DAILY omeprazole 20 mg capsule,delayed release(DR/EC) 20 mg PO Q24H ipratropium-albuterol 0.5 mg-3 mg(2.5 mg base)/3 mL solution for nebulization 3 ml inhalation Q6H PRN (Reason: shortness of breath) Qty: 90 0RF sildenafil 100 mg tablet 100 mg PO Q24H PRN (Reason: erectile dysfunction) Print Language: Kyrgyz Instructions: Upper Respiratory Infection (ED) Referrals: Torres Klein MD [Primary Care Provider, Family Practice] - 1 week
[2024-10-06] MEDS: 0.9 % SODIUM CHLORIDE 1,000 ML 125 ML IV (12:18)
[2024-10-06 12:22] LABS: Basophils Percent Auto 0.4 % (0.2-2.0); Eosinophils Absolute Auto 0.5 10^3/uL (0.0-0.7); Eosinophils Percent Auto 5.6 % (0.9-7.0); Hematocrit 41.1 % (42.0-54.0); Hemoglobin 14.1 g/dL (14.0-18.0); Immature Granulocytes Abs Auto 0.06 10^3/uL (0.00-0.03); Immature Granulocytes Pct Auto 0.6 % (0.0-0.5); Lymphocytes Percent Auto 10.4 % (20.5-60.0); Mean Corpuscular HGB Conc 34.3 g/dL (29.9-35.2); Mean Corpuscular Hemoglobin 28.4 pg (25.9-34.0); Mean Corpuscular Volume 82.9 fL (80.0-94.0); Mean Platelet Volume 10.3 fL (9.5-13.5); Monocytes Percent Auto 10.7 % (1.7-12.0); Neutrophils Absolute Auto 6.9 10^3/uL (1.4-6.5); Neutrophils Percent Auto 72.3 % (43.0-75.0); Platelet Count 201 10^3/uL (150-450); Red Blood Count 4.96 10^6/uL (4.70-6.10); Red Cell Distribution Width 14.7 % (11.0-15.0); White Blood Count 9.5 10^3/uL (4.0-11.0)
[2024-10-06 12:34] LABS: Influenza Virus A Antigen Negative; Influenza Virus B Antigen Negative; Internal Control Within Normal Limits; SARS-CoV-2 Ag NEGATIVE (NEGATIVE)
[2024-10-06 12:36] LABS: Anion Gap 15.4; BUN Creatinine Ratio 15.2; Chloride 96 mmol/L (98-107); Estimated GFR (African America >60 (>=60 mL/min/1.73m^2); Estimated GFR (Non-African Ame >60 (>=60 mL/min/1.73m^2); Glucose 117 mg/dL (74-106); Sodium 133 mmol/L (136-145)
[2024-10-06 12:38] LABS: Bilirubin Urine NEGATIVE (NEGATIVE); Blood Urine NEGATIVE (NEGATIVE); Clarity Urine CLEAR (CLEAR); Color Urine LT. YELLOW (YELLOW); Glucose Urine UA NEGATIVE (NEGATIVE); Ketones Urine NEGATIVE (NEGATIVE); Leukocyte Esterase Urine NEGATIVE (NEGATIVE); Nitrite Urine NEGATIVE (NEGATIVE); Protein Urine NEGATIVE (NEG/TRACE); Urobilinogen Urine 0.2 EU/dL (0.2-1.0)
[2024-10-06 12:38] LABS: Potassium 4.4 mmol/L (3.5-5.1)
[2024-10-06 12:48] LABS: Bacteria Urine NONE SEEN #/HPF (NONE SEEN); Mucus Urine NONE SEEN (NONE SEEN); Squamous Epithelial Cell Urine NONE SEEN #/LPF (NONE/RARE); WBC Urine NONE SEEN #/HPF (NONE SEEN)
[2024-10-06 12:49] LABS: Cast Seen? NONE SEEN #/LPF (NONE SEEN); Crystals Seen? None Seen #/HPF (None Seen); RBC Urine 0-2 #/HPF (0-2)
[2024-10-06] MEDS: ACETAMINOPHEN 325 MG TABLET 650 MG PO (13:01)
[2024-10-06 13:45] VITALS: BP 136/88; PULSE 67; O2SAT 96
== END 2024-10-06 13:46 | disposition home or self-care (01) ==
PROVIDERS: Emergency Provider Emergency Medicine; PCP Family Medicine
DX: R53.1 Weakness (principal); Z79.51 Long term (current) use of inhaled steroids; E87.1 Hypo-osmolality and hyponatremia; I51.7 Cardiomegaly; R05.9 Cough, unspecified; R50.9 Fever, unspecified; J06.9 Acute upper respiratory infection, unspecified
CPT/HCPCS: 36415; 71045; 80048; 80053; 81001; 85025; 87804; 87811; 93005; 99285

== ENCOUNTER 2024-10-09 11:05 | Inpatient (IN) | payer MEDICARE, OTHER, SELFPAY ==
[2024-10-09] VITALS (23 sets, daily range): BP systolic 120–157; BP diastolic 69–83; PULSE 77–95; TEMP 36.7–37.4; O2SAT 82–97; BMI 35.1; BMI 34.6
--- NOTE | 2024-10-09 11:24 | ECG_ITS ---
[facility] Test Date: 2024-10-09 Pat Name: DEMARCUS CALDERON Department: Room: - Gender: Male [employer] Operator: : 1955 Requested By: [id number] Order Number: [id number] Reading MD: MELANY CHEN M.D. Measurements Intervals [place] Rate: 93 P: 39 HI: 166 QRS: -20 QRSD: 98 T: 75 QT: 340 QTc: 391 Interpretive Statements 1100 Sinus rhythm 4068 Nonspecific [place] abnormality 5233 Voltage criteria for LVH 0104 ELECTRODE(S) DETACHED ... Repeat ECG is requested 9150 abnormal ECG Compared to ECG 10/06/2024 11:59:44 No significant changes Electronically Signed On 10-09-2024 19:44:48 EDT by MELANY CHEN M.D.
--- OUTSIDE RECORDS SUMMARY | 2024-10-09 11:27 | XMS_ITS | CCD ---
Author Organization [facility] Care Team Providers Care Shaper And Presser Name Role Phone Sera Flower Unavailable Unavailable Unavailable Unavailable Primary Care Provider Unavailabl e Unavailable Unavailable DEANDRA BENDER Attending Unavailable DEANDRA BENDER Referring Unavailable MAU RANDLE Attending Unavailable DEANDRA BENDER Attending Unavailable DEANDRA BENDER Attending Unavailable DEANDRA BENDER Referring Unavailable MD Sera Flower Primary Care Provider [phone] MD Sera Flower Other Provider MD Rene Cortez Attending Provider [phone] Dr. Sera Flower Primary Care Unavailab Rene Nobles Referring Unavailable Ching, Dr. Sera Frost Primary Care Unavailab Rene Nobles Attending Unavailable Dr. Sera Flower Primary Care Unavailab Rene Nobles Attending Unavailable Ching, Dr. Sera Frost Primary Care Unavailab Rene Nobles Attending Unavailable Sera Flower MD Primary Care Provider MD Sera Flower Primary Care Provider DO Jasper Gross Emergency Provider [phone] Jasper Gross Admitting Unavailable Jasper Gross Attending Unavailable Sera Flower Primary Care Unavailable Rene Cortez Attending Unavailable Sera Flower Primary Care Unavailable Sera Flower Consulting Unavailable Rene Cortez Admitting Unavailable Sera Flower MD Unavailable Sera Flower MD Primary Care Provider Indira CAMACHO, Tootie Unavailable Rene Cortez MD Unavailable Indira CAMACHO, Tootie Unavailable [phone] Sera Flower Primary Care Physician Unavailab SU Keith Attending Unavailable SU COOK Attending Unavailable ADRIÁNSU GONZALES Attending Unavailable ADRIÁN, SU Esquivel Admitting Unavailable SREA FLOWER Referring Unavailable ADRIÁNSU GONZALES Attending Unavailable Lauri CAMACHO, Orquidea Unavailable RENE CORTEZ Attending Unavailable RENE CORTEZ Referring Unavailable SERA FLOWER Primary Care Unavailable RENE CORTEZ Attending Unavailable RENE CORTEZ Referring Unavailable SERA FLOWER Primary Care Unavailable [facility] Orquidea CAMACHO Unavailable Unavailable John BAPTISTE Attending Unavailable COOK, John Hauser Attending Unavailable OrzechYasemin Attending Unavailable COOKJohn Attending Unavailable COOKJohn Referring Unavailable COOKJohn Admitting Unavailable ADRIÁN, NUBIA Esquivel Admitting Unavailab moisés COOK, NUBIA Esquivel Attending Unavailab le John BAPTISTE Attending Unavailable COOK, John P Referring Unavailable COOK, John Hauser Attending Unavailable Rene Cortez MD Unavailable Evens Morgan MD Unavailable [phone] John Baptiste MD Unavailable [phone] Qi NEWBERRY, Jessica A Unavailable RISALIPETER, SALLY R Attending Unavailable CHING SERA L Referring Unavailable PETMARYBETH MCGRATH Attending Unavailable RISALIPETER, SALLY R Referring Unavailable BENJY LAAS Attending Unavailable RISALITI, SALLY R Attending Unavailable HILL, SERA L Referring Unavailable HILL, SERA L Attending Unavailable HILL, SERA L Referring Unavailable RISALITI, SALLY R Attending Unavailable QI, JESSICA A Attending Unavailable Allergies Allergy Classification Reported Allergen(s) Allergy Type Date of Onset Reaction(s) Facility (20 sources) Codeine; Translations: [codeine] Drug Allergy 6 Vomiting, Unknown, Nausea And Vomiting, Other, Unknown (qualifier value) [facility] (6 sources) Codeine / guaiFENesin; Translations: [CODEINE-GUAIFEN ESIN] Drug Allergy 1 Other: See Comments [facility] (6 sources) guaiFENesin; Translations: [GUAIFENESIN] Drug Allergy 3 Other: See Comments [facility] (1 source) Codeine Drug Allergy 4 [facility] (18 sources) guaiFENesin Drug Allergy 3 Other [facility] Medications Current Medications Medication Drug Class(es) Dates Sig (Normalized) Sig (Original) acetaminophen 325 mg / HYDROcodone bitartrate 5 mg oral tablet (1 source) Opioid Agonist Start: 07-29-2024 take 1 tablet by mouth every hour Woodward 325 mg-5 mg oral tablet See Instructions, 1 tab(s), Refill(s) 0, Take 1 hour prior to your procedure, [facility], 172, cm, 06/23/24 15:02:00 EST, Height/Length Dosing, 111.5, kg, 06/23/24 15:02:00 EST, Weight Dosing Start Date: 07/29/24 Status: Ordered acetaminophen 325 mg / traMADol hydrochloride 37.5 mg oral tablet (1 source) Opioid Agonist Start: 07-29-2024 Ultracet 325 mg-37.5 mg Tab See Instructions, 20 tab(s), Refill(s) 0, take 1-2 every 6 hrs prn for pain - following procedure, [facility], 172, cm, 06/23/24 15:02:00 [...] Start: 01-17-2022 take 1 capsule by mo [facility] three times daily for cough benzonatate [...] days, # 14 tab(s), Refills(s) 0, Pharmacy: [facility], 172, cm, 06/23/24 15:02:00 EST, Height/Length Dosing, 111.5, kg, 06/23/24 15:02:00 EST, Weight Dosing Start Date: 07/29/24 Status: Ordered Start: 04-16-2024 End: 04-30-2024 take 1 tablet by mouth every twelve hours Cipro 500 mg Tab 500 mg = 1 tab(s), Oral, q12hr, X 14 day(s), # 28 tab(s), Refills(s) 0, Pharmacy: [facility], 172, cm, 04/16/24 9:51:00 EST, Height/Length Dosing, 108.1, kg, 04/16/24 9:51:00 EST, Weight Dosing Start Date: 04/16/24 Stop Date: 04/30/24 Status: Ordered diazePAM 10 mg oral tablet (1 source) Benzodiazepine Start: 07-29-2024 Valium 10 mg Tab See Instructions, Take 1 hr prior to procedure, # 1 tab(s), Refills(s) 0, Pharmacy: [facility], 172, cm, 06/23/24 15:02:00 [...] take 1 puff(s) by inhalation once daily Napmfqnaboa-Zdcqofabp-Smznyd (Trelegy Ellipta) 100-62.5-25 MCG/ACT aerosol powder Inhale [...] SL tablet Indications: Coronary artery disease involving [place] coronary artery of [place] heart without angina pectoris Place 1 tablet (0.4 mg) under the tongue every 5 minutes if needed for chest pain. May repeat dose every 5 minutes for up to 3 doses total. 25 tablet 11 05/15/2024 06/14/2024 Active Comment on above: Dissolve under the t ongue. omega-3 fatty acids-fish oil (One-Per-Day Belva-3) 684-1,200 mg capsule (3 sources) omega-3 fatty acids-fish oil (One-Per-Day Belva-3) 684-1,200 mg capsule Take as directed Active omega-3 fatty ac ids-fish oil (One-Per-Day Belva-3) 684-1,200 mg capsule Take as directed 0 [...] procedure, # 10 tab(s), Refills(s) 0, Pharmacy: [facility], 172, cm, 06/23/24 15:02:00 [...] day(s), # 60 cap(s), Refills(s) 11, Pharmacy: [facility], 172, cm, 04/16/24 9:51:00 [...] mg by inhalation every eight hours Ipratropium [place] Discontinued 0.5 MG INHALATION Q8H April 26, [...] Antifungal Start: 07-17-2024 End: 09-24-2024 nystatin (Mycostatin) [id number] UNIT/GM powder Indications: Erythema intertrigo Apply to the affected area on groin area, once daily, 30 day supply 60 g 11 07/17/2024 09/24/2024 Discontinued (Med list cleanup) Belva 3 CAPS (2 sources) Belva 3 CAPS MARLEN E DIRECTED. Quantity: 0 [...] [Coronary atherosclerosis of unspecified type of vessel, [place] or graft] Onset: 01-03-2023 03-23-2023 Chronic Diabetes [...] John BAPTISTE MD Where: [facility] [address] [place] [address]- You Need to Schedule the Following Appointments Follow Up with John BAPTISTE MD, URL When: Where: [address] [address]- Medications What How Much When [...] congestive heart failure Coronary artery disease involving [place] heart with angina pectoris Elevated PSA GERD [...] An exam (more content not included)... Normal [facility] Urology Office/Clinic Noteon 08-26-2024 Urology Office/Clinic [...] Information BENNY SHELLEY, John Hauser, URL [address] [place] [address]- Additional Instructions: 6-8 wks with PVR Patient Education Benign Prostatic Hyperplasia I, Dayanara [place], personally scribed for Dr. Baptiste on 08/26/2024 08:41:13. . Portions of this record may have been created with voice recognition artificial intelligence software, specifically [employer], [employer] and or [employer]. Substitutions may have occurred due to the inherent limitations of voice recognition and artificial intelligence software. 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 Chronic prostatitis Chronic systolic congestive heart failure Coronary artery disease involving [place] heart with angina pectoris Elevated PSA GERD [...] diphtheria/pertussis, acel/t (more content not included)... Normal [facility] Comment on above: Result Comment: [...] John BAPTISTE MD Where: [facility] [place] [address] [place] [address]- You Need to Schedule the Following Appointments Follow Up with John BAPTISTE MD, URL When: Where: [address] [facility] [address] [place] [address]- Medications What How Much When [...] congestive heart failure Coronary artery disease involving [place] heart with angina pectoris Elevated PSA GERD [...] growths. ??? (more content not included)... Normal [facility] Urology Office/Clinic Noteon 08-18-2024 Urology Office/Clinic [...] Hauser, URL [address] [address]- Additional Instructions: Follow up August 26 2024 [...] congestive heart failure Coronary artery disease involving [place] heart with angina pectoris Elevated PSA GERD [...] vac (more content not included)... Normal [facility] Comment on above: Result Comment: Elec tronically [...] MD This Is Your Medications List acetaminophen-hydrocodone (Woodward 325 mg-5 mg oral tablet) acetaminophen-tramadol (Ultracet [...] What How Much When Instructions Unchanged acetaminophen-hydrocodone (Woodward 325 mg-5 mg oral tablet) See instructions [...] congestive heart failure Coronary artery disease involving [place] heart with angina pectoris Elevated PSA GERD without esophagitis Hypertension Ischemic cardiomyopathy Pure hypercholesterolemia Testicular hypofunction Urinary retention Patient Survey You may receive a survey via text or e-mail asking about your office visit. Please share your experience with us by completing your survey. We appreciate your feedback and thank you for choosing us for your care. [facility] Inpatient Patient Summaryon 08-08-2024 Inpatient Patient Summary Inpatient Patient Summary [place] [id number] Clinical Summary Person Information Name: DEMARCUS CALDERON Age: 69 Years : 1955 Sex: Male PCP: Sera Flower PA-C Marital Status: Race: White Ethnicity: Non- or Language: Swedish Visit Id: Visit Reason: BPH WITH LUTS Speciality: Acuity: Enc Type: Outpatient Med Service: Surgery Arrival: 08/08/2024 12:42:16 Discharge: Dispo Type: Address: [address] [place] [address] KG Calabrese [facility] [id number] Provider Notes: Diagnosis: Other obstructive and reflux uropathy Problems Active BPH with obstruction/lower urinary tract symptoms Chronic prostatitis Urinary retention Elevated PSA Chronic systolic congestive heart failure Coronary artery disease involving [place] heart with angina pectoris Testicular hypofunction Pure [...] Documented This Visit Final Med List: acetaminophen-hydrocodone (Woodward 325 mg-5 mg oral tablet) Take 1 [...] Follow up: With: Address: When: [facility] [address], [place] [id number] Business (1) Comments: Push the fluids to keep the urine clear. Stay on the Flomax for now. Some discharge instructions have been provided. If the bleeding gets severe, or the catheter is clogging from blood clots, you need to go to the ER for irrigation. Will make a one week appt. to remove the catheter. Type Location Start Finish [facility] Urology CALL PAT FT [facility] Surgical Services 08/13/2024 12:00 PM 08/13/2024 12:30 PM Confirmed Patient Education Information: EU - Urolift Discharge Instructions (Custom) [facility] Main OR Intraoperative Recor don 08-08-2024 Main OR Intraoperative Record Main OR Intraoperative Record IntraOp Document Type FTURO Summary Primary Physician: John BAPTISTE MD Finalized Date/Time: 08/08/24 14:01:11 Pt. Name: DEMARCUS CALDERON Jose Miranda/Sex: 1955 Male Med Rec #: [id number] Physician: John BAPTISTE MD Financial #: [id number] Pt. Type: O Room/Bed: / Admit/Disch: 08/08/24 [...] Dian Jackman Role Performed Surgeon - Primary [address] - Primary Scrub - Primary Time In [...] Medication Participants Leena Hernandez RN Applicable) Jayme Cash Laura C Time Out Complete 08/08/24 13:23:00 [...] CARTRIDGE CARTRIDGE CARTRIDGE Serial Number Lot Number [id number] Director Social Welfare NEOTRACT NEOTRACT NEOTRACT Catalog ???# [id number] Size Expiration Date 08/19/25 08/19/25 01/22/26 Usage [...] patient problems (more content not included)... Normal [facility] Main OR Preoperative Recordo n 08-08-2024 Main OR Preoperative Record Main OR Preoperative Record Holding Area Document Type FTURO Summary Primary Physician: John BAPTISTE MD Finalized Date/Time: 08/08/24 13:16:05 Pt. Name: DEMARCUS CALDERON/Sex: 1955 Male Med Rec #: [id number] Physician: John BAPTISTE MD Financial #: [id number] Pt. Type: O Room/Bed: / Admit/Disch: 08/08/24 [...] No Pain Comment: N/A Skin Integrity Intact, [place], Warm, & Dry Vitals - EU Blood Pressure 146/74 Pulse 58 bpm Respirations 18 br/min SPO2 95 % Additional None Specimens Comment N/A Specimens Collected Residual Amount - 0 RN Reviewed Yes Post Void Last Modified By: Bonny Brenner 08/08/24 13:15:24 Finalized By: Bonny Brenner Document Signatures Signed By: Bonny Brenner 08/08/24 13:15 Bonny Brenner 08/08/24 13:16 Normal [facility] Operative Reporton Operative Report Operative Report Patient: DEMARCUS CALDERON Age: 69 years Sex: Male : 1955 Associated Diagnoses: None Author: John BAPTISTE MD Procedure Operative Information Details: Date/ Time: 08/08/2024 13:41:00. Pre-Op Dx: Acute urinary retention (QBM04-ET R33.8, Working, Medical), BPH with obstruction/lower urinary tract symptoms ([id number] N40.1, Working, Medical). Post-Op Dx: Same. Anesthesia [...] procedure (10 mg diazepam, 5/325 mg of Woodward), Local Anesthesia (60cc 2% Xylocaine liquid inserted [...] persistent/severe. He agrees with the plan. Normal [facility] Comment on above: Result Comment: Elec tronically Signed By: John BAPTISTE MD\.br\Date and Time Signed: 08/08/24 13:51 EDT Outpatient Surgery Discharge Instructionon 08-08-2024 Outpatient Surgery Discharge Instruction Outpatient Surgery Discharge Instruction [address] [address] Patient Discharge Instructions PERSON INFORMATION [...] Follow up: With: Address: When: John BAPTISTE [address] [place] [address], [address], [place] [phone] [facility] (1) Comments: Push the fluids to keep the urine clear. Stay on the Flomax for now. Some discharge instructions have been provided. If the bleeding gets severe, or the catheter is clogging from blood clots, you need to go to the ER for irrigation. Will make a one week appt. to remove the catheter. Type [facility] Services 08/13/2024 12:00 PM [...] call? Yes (more content not included)... Normal [facility] Urology Office/Clinic Noteon 06-23-2024 Urology Office/Clinic [...] Contact Information John BAPTISTE MD, URL [address] [address] Additional Instructions: schedule Urolift Patient [...] software, specif (more content not included)... Normal [facility] Comment on above: Result Comment: [...] Contact Information ADRIÁN DELACRUZ, SU Esquivel, URL [address] [facility] [place] [address] Additional Instructions: Schedule Cysto Patient [...] congestive heart failure Coronary artery disease involving [place] heart with angina pectoris Elevated PSA GERD [...] Protein Urine Dipstick: Negative (04/28/24 12:04:00) Specific [place] Urine Dipstick: 1.020 (04/28/24 12:04:00) Urine Appearance Urine Dipstick: Clear (04/28/24 12:04:00) Urine Color Urine Dipstick: Yellow (04/28/24 12:04:00) Urobilinogen Urine Dipstick: Normal 0.2-1 EU/dl (04/28/24 12:04:00) pH Urine Dipstick: 6.5 (04/28/24 12:04:00) Normal [facility] Comment on above: Result Comment: [...] used for this result was chemiluminescence using [employer] Access Hybritech PSA reagent. PSA Totalon 04-25-2024 Prostate specific Ag [Mass/Vol] 2.3 ng/mL Normal 0.1-3.5 [facility] Comment on above: Result Comment: The concentration of PSA determined by different manufacturers can vary due to differences in assay methods and reagent specificity. Values obtained from different assay methods cannot be used interchangeably. The methodology used for this result was chemiluminescence using [employer] Access Hybritech PSA reagent. Performed By: #### 1 [id number] #### [facility] [address] [place] [address] No Panel Informationon 02-18 [facility] WHITE BLOOD CELLSon 02-19-20 24 WHITE BLOOD CELLS White Blood Cells [facility] WHITE BLOOD CELLS None seen [facility] Activated partial thrombopla stin time (aPTT) [...] coagulation studies. Please contact the laboratory at [phone] for redraw instructions. Alanine aminotransferase [En zymatic activity/volume] in Serum or PlasmaOrdered By: Jasper Gross on 06-14-2023 ALT [Catalytic activity/Vol] 37 U/L 7-52 [facility] Albumin [Mass/volume] in Ser um or Plasma by Bromocresol green (BCG) dye binding methoOrdered By: Jasper Gross on 06-14-2023 Albumin BCG dye [Mass/Vol] 4.1 g/dL 3.5-5.7 [facility] Alkaline phosphatase [Enzyma tic activity/volume] in Serum or PlasmaOrdered By: Jasper Gross on 06-14-2023 ALP [Catalytic activity/Vol] 59 U/L 34-104 [facility] Aspartate aminotransferase [ Enzymatic activity/volume] in Serum or PlasmaOrdered By: Jasper Gross on 06-14-2023 AST [Catalytic activity/Vol] 29 U/L 13-39 [facility] B-Type Natriuretic Peptideon 06-14-2023 Natriuretic peptide B (Bld) [Mass/Vol] 67.0 pg/mL Normal 5-100 [facility] Comment on above: Result Comment: PERF ORMED BY: [facility] [address] [place] [address] PATHOLOGIST MEDICAL AND SCIENTIFIC ILLUSTRATOR RAPHAEL RANGEL M.D. Performed By: #### C OVID19 FLU RSV, CEPHEID NEG #### [facility] [address] Basophils Auto (Bld) [#/Vol] Ordered By: Jasper Gross on 06-14-2023 Basophils (Bld) [#/Vol] 0.0 10*3/uL 0.0-0.2 [facility] Basophils/100 WBC Auto (Bld) Ordered By: Jasper Gross on 06-14-2023 Basophils/100 WBC (Bld) 0.6 % . [facility] Bilirubin.total [Mass/volume ] in Serum or PlasmaOrdered By: Jasper Gross on 06-14-2023 Bilirubin [Mass/Vol] 0.4 mg/dL 0.3-1.0 [facility] COVID CepheidOrdered By: Asya Gross on 06-14-2023 SARS-CoV-2 (COVID-19) Ab IA Ql Negative Negative [facility] Comment on above: This is a duplicate Cepheid Xpert Xpress CoV-2/Flu/RSV Plus RNA by RT-PCR result to be used for statistical tracking purpose only. SARS-CoV-2 (COVID-19) RNA VERONA+probe Ql (Unsp spec) [facility] COVID-19 / Flu A/B / RSV [...] or Cepheid Disclaimer revoked sooner. PERFORMED BY: [place] [address] PATHOLOGIST MEDICAL AND SCIENTIFIC ILLUSTRATOR RAPHAEL RANGEL M.D. Normal [facility] Comment on above: Performed By: #### C OVID19 FLU RSV, CEPHEID NEG #### [address] Calcium [Mass/volume] in Ser um or PlasmaOrdered By: Jasper Gross on 06-14-2023 Calcium [Mass/Vol] 9.0 mg/dL 8.6-10.3 [facility] Carbon dioxide, total [Moles /volume] in Serum or PlasmaOrdered By: Jasepr Gross on 06-14-2023 CO2 [Moles/Vol] 23.4 mmol/L 21.0-31.0 [facility] Cepheid COVID PCR Negativeon 06-14-2023 SARS-CoV-2 (COVID-19) RNA VERONA+probe Ql (Unsp spec) Negative Normal Negative [facility] Comment on above: Result Comment: This is a duplicate CepYouca.stid Xpert Xpress CoV-2/Flu/RSV Plus RNA by RT-PCR result to be used for statistical tracking purpose only. PERFORMED BY: [place] [address] PATHOLOGIST MEDICAL AND SCIENTIFIC ILLUSTRATOR RAPHAEL RANGEL M.D. Performed By: #### C OVID19 FLU RSV, CEPHEID NEG #### [address] Chloride [Moles/volume] in [place] or PlasmaOrdered By: Jasper Gross on 06-14-2023 Chloride [Moles/Vol] 105 mmol/L 98-107 [facility] Complete Blood Count Auto Di ffon 06-14-2023 Basophils (Bld) [#/Vol] 0.0 10*3/uL Normal 0.0-0.2 [facility] Comment on above: Result Comment: PERF ORMED BY: [place] [address] PATHOLOGIST MEDICAL AND SCIENTIFIC ILLUSTRATOR RAPHAEL RANGEL M.D. Performed By: #### B UNIX ARCHITECT, CK, MG, CBC, HS TROP, PTT, PT, CMP #### [place] [address] [place] Basophils/100 WBC (Bld) 0.6 % Normal . [facility] Comment on above: Performed By: #### B UNIX ARCHITECT, CK, MG, CBC, HS TROP, PTT, PT, CMP #### [place] [address] [place] Eosinophils (Bld) [#/Vol] 0.8 10*3/uL High 0.0-0.45 [facility] Comment on above: Performed By: #### B UNIX ARCHITECT, CK, MG, CBC, HS TROP, PTT, PT, CMP #### [place] [address] [place] Eosinophils/100 WBC (Bld) 9.6 % Normal . [facility] Comment on above: Performed By: #### B UNIX ARCHITECT, CK, MG, CBC, HS TROP, PTT, PT, CMP #### [address] Erythrocyte distribution width (RBC) [Ratio] 14.4 % Normal 12.0-14.8 [facility] Comment on above: Performed By: #### B UNIX ARCHITECT, CK, MG, CBC, HS TROP, PTT, PT, CMP #### [address] Hematocrit (Bld) [Volume fraction] 40.8 % Normal 38.8-50.0 [facility] Comment on above: Performed By: #### B UNIX ARCHITECT, CK, MG, CBC, HS TROP, PTT, PT, CMP #### [address] Hemoglobin (Bld) [Mass/Vol] 14.3 g/dL Normal 13.0-17.0 [facility] Comment on above: Performed By: #### B UNIX ARCHITECT, CK, MG, CBC, HS TROP, PTT, PT, CMP #### [address] Lymphocytes (Bld) [#/Vol] 1.5 10*3/uL Normal 1.00-4.8 [facility] Comment on above: Performed By: #### B UNIX ARCHITECT, CK, MG, CBC, HS TROP, PTT, PT, CMP #### [address] Lymphocytes/100 WBC (Bld) 18.5 % Normal . [facility] Comment on above: Performed By: #### B UNIX ARCHITECT, CK, MG, CBC, HS TROP, PTT, PT, CMP #### [address] MCH (RBC) [Entitic mass] 30.1 pg Normal 27.5-35.2 [facility] Comment on above: Performed By: #### B UNIX ARCHITECT, CK, MG, CBC, HS TROP, PTT, PT, CMP #### [address] MCV (RBC) [Entitic vol] 86.2 fL Normal 83.5-101 [facility] Comment on above: Performed By: #### B UNIX ARCHITECT, CK, MG, CBC, HS TROP, PTT, PT, CMP #### [address] Mean Corpuscular HGB Conc 34.9 g/dL Normal 32.5-35.6 [facility] Comment on above: Performed By: #### B UNIX ARCHITECT, CK, MG, CBC, HS TROP, PTT, PT, CMP #### [address] Monocytes (Bld) [#/Vol] 0.8 10*3/uL Normal 0.0-0.8 [facility] Comment on above: Performed By: #### B UNIX ARCHITECT, CK, MG, CBC, HS TROP, PTT, PT, CMP #### [address] Monocytes/100 WBC (Bld) 16.39 % Normal 0.00-20.00 [facility] Comment on above: Performed By: #### B UNIX ARCHITECT, CK, MG, CBC, HS TROP, PTT, PT, CMP #### [address] Monocytes/100 WBC (Bld) 10.1 % Normal . [facility] Comment on above: Performed By: #### B UNIX ARCHITECT, CK, MG, CBC, HS TROP, PTT, PT, CMP #### [address] Neutrophils (Bld) [#/Vol] 4.9 10*3/uL Normal 1.8-7.7 [facility] Comment on above: Performed By: #### B UNIX ARCHITECT, CK, MG, CBC, HS TROP, PTT, PT, CMP #### [address] Neutrophils/100 WBC (Bld) 61.2 % Normal . [facility] Comment on above: Performed By: #### B UNIX ARCHITECT, CK, MG, CBC, HS TROP, PTT, PT, CMP #### [address] NRBC% 0.1 /100{WBC} Normal 0-0.5 [facility] Comment on above: Performed By: #### B UNIX ARCHITECT, CK, MG, CBC, HS TROP, PTT, PT, CMP #### [address] Platelet mean volume (Bld) [Entitic vol] 8.4 fL Normal 6.6-10.1 [facility] Comment on above: Performed By: #### B UNIX ARCHITECT, CK, MG, CBC, HS TROP, PTT, PT, CMP #### [facility] [address] Platelets (Bld) [#/Vol] 181 10*3/uL Normal 150-450 [facility] Comment on above: Performed By: #### B UNIX ARCHITECT, CK, MG, CBC, HS TROP, PTT, PT, CMP #### [address] RBC (Bld) [#/Vol] 4.74 10*6/uL Normal 3.90-5.60 [facility] Comment on above: Performed By: #### B UNIX ARCHITECT, CK, MG, CBC, HS TROP, PTT, PT, CMP #### [address] WBC (Bld) [#/Vol] 8.1 10*3/uL Normal 4.1-10.5 [facility] Comment on above: Performed By: #### B UNIX ARCHITECT, CK, MG, CBC, HS TROP, PTT, PT, CMP #### [address] Comprehensive Metabolic Pane maria esther 06-14-2023 Albumin [Mass/Vol] 4.1 g/dL Normal 3.5-5.7 [facility] Comment on above: Performed By: #### B UNIX ARCHITECT, CK, MG, CBC, HS TROP, PTT, PT, CMP #### [address] Albumin/Globulin [Mass ratio] 1.6 {ratio} Normal [facility] Comment on above: Performed By: #### B UNIX ARCHITECT, CK, MG, CBC, HS TROP, PTT, PT, CMP #### [facility] [address] ALP [Catalytic activity/Vol] 59 U/L Normal 34-104 [facility] Comment on above: Performed By: #### B UNIX ARCHITECT, CK, MG, CBC, HS TROP, PTT, PT, CMP #### [facility] [address] ALT [Catalytic activity/Vol] 37 U/L Normal 7-52 [facility] Comment on above: Performed By: #### B UNIX ARCHITECT, CK, MG, CBC, HS TROP, PTT, PT, CMP #### [address] Anion gap [Moles/Vol] 11.5 mmol/L Normal 6.0-15.0 [facility] Comment on above: Performed By: #### B UNIX ARCHITECT, CK, MG, CBC, HS TROP, PTT, PT, CMP #### [address] AST [Catalytic activity/Vol] 29 U/L Normal 13-39 [facility] Comment on above: Performed By: #### B UNIX ARCHITECT, CK, MG, CBC, HS TROP, PTT, PT, CMP #### [address] Bilirubin [Mass/Vol] 0.4 mg/dL Normal 0.3-1.0 [facility] Comment on above: Performed By: #### B UNIX ARCHITECT, CK, MG, CBC, HS TROP, PTT, PT, CMP #### [address] Calcium [Mass/Vol] 9.0 mg/dL Normal 8.6-10.3 [facility] Comment on above: Performed By: #### B UNIX ARCHITECT, CK, MG, CBC, HS TROP, PTT, PT, CMP #### [address] Chloride [Moles/Vol] 105 mmol/L Normal 98-107 [facility] Comment on above: Performed By: #### B UNIX ARCHITECT, CK, MG, CBC, HS TROP, PTT, PT, CMP #### [address] CO2 [Moles/Vol] 23.4 mmol/L Normal 21.0-31.0 [facility] Comment on above: Performed By: #### B UNIX ARCHITECT, CK, MG, CBC, HS TROP, PTT, PT, CMP #### [address] Creatinine [Mass/Vol] 0.89 mg/dL Normal 0.70-1.30 [facility] Comment on above: Performed By: #### B UNIX ARCHITECT, CK, MG, CBC, HS TROP, PTT, PT, CMP #### [address] Creatinine Clr Calc Pharmacy 92.42 [facility] Comment on above: Performed By: #### B UNIX ARCHITECT, CK, MG, CBC, HS TROP, PTT, PT, CMP #### [address] GFR/1.73 sq M.predicted MDRD (S/P/Bld) [Vol rate/Area] mL/min/{1.73_m2} [facility] Comment on above: Performed By: #### B UNIX ARCHITECT, CK, MG, CBC, HS TROP, PTT, PT, CMP #### [address] Globulin (S) [Mass/Vol] 2.5 g/dL [facility] Comment on above: Performed By: #### B UNIX ARCHITECT, CK, MG, CBC, HS TROP, PTT, PT, CMP #### [address] Glucose [Mass/Vol] 144 mg/dL High 70-100 [facility] Comment on above: Result Comment: [place] Glucose Reference Range is dependent on time and content of last meal. Glucose of more than 200 mg/dL in a nonstressed, ambulatory subject supports the diagnosis of Diabetes Mellitus. ADA recommended reference range Performed By: #### B UNIX ARCHITECT, CK, MG, CBC, HS TROP, PTT, PT, CMP #### [facility] [address] Potassium [Moles/Vol] 3.9 mmol/L Normal 3.5-5.1 [facility] Comment on above: Performed By: #### B UNIX ARCHITECT, CK, MG, CBC, HS TROP, PTT, PT, CMP #### [facility] [address] Protein [Mass/Vol] 6.6 g/dL Normal 6.4-8.9 [facility] Comment on above: Performed By: #### B UNIX ARCHITECT, CK, MG, CBC, HS TROP, PTT, PT, CMP #### [facility] [address] Sodium [Moles/Vol] 136 mmol/L Normal 136-145 [facility] Comment on above: Performed By: #### B UNIX ARCHITECT, CK, MG, CBC, HS TROP, PTT, PT, CMP #### [facility] [address] Urea nitrogen [Mass/Vol] 12 mg/dL Normal 7-25 [facility] Comment on above: Performed By: #### B UNIX ARCHITECT, CK, MG, CBC, HS TROP, PTT, PT, CMP #### [facility] [address] Creatine Kinaseon 06-14-2023 CK [Catalytic activity/Vol] 185 U/L Normal - [facility] Comment on above: Performed By: #### C OVID19 FLU RSV, CEPHEID NEG #### [place] [address] [place] Creatine kinase [Enzymatic a ctivity/volume] in Serum or PlasmaOrdered By: Jasper Gross on 06-14-2023 CK [Catalytic activity/Vol] 185 U/L [facility] Creatinine [Mass/volume] in Serum or PlasmaOrdered By: Jasper Gross on 06-14-2023 Creatinine [Mass/Vol] 0.89 mg/dL 0.70-1.30 [facility] ECG 12 lead ECGon 06-14-2023 ECG 12 lead ECG [facility] [place] [address] Electrocardiograph Report Signed Patient: Demarcus Calderon MR#: [id number] 652 : 1955 Acct:[id number] Age/Sex: 68 / M ADM Date: 06/14/23 Loc: ER Room: Type: [facility] ER Attending Dr: Ordering Provider: Jasper [...] sinus rhythm Confirmed by Jasper GROSS DO ([id number]) on 06/14/2023 2:25:14 PM Referred By: Electronically Signed By:Jasper GROSS DO Transcribed By: MUS Signed By Jasper Gross DO 0 06/14/23 1425 Normal [facility] Eosinophils Auto (Bld) [#/Vo l]Ordered By: Jasper Gross on 06-14-2023 Eosinophils (Bld) [#/Vol] 0.8 10*3/uL 0.0-0.45 [facility] Eosinophils/100 WBC Auto (Bl d)Ordered By: Jasper Gross on 06-14-2023 Eosinophils/100 WBC (Bld) 9.6 % . [facility] Erythrocyte distribution wid th Auto (RBC) [Ratio]Ordered By: Jasper Gross on 06-14-2023 Erythrocyte distribution width (RBC) [Ratio] 14.4 % 12.0-14.8 [facility] Globulin Calc (S) [Mass/Vol] Ordered By: Jasper Gross on 06-14-2023 Globulin (S) [Mass/Vol] 2.5 g/dL [facility] Glucose [Mass/volume] in Ser um or PlasmaOrdered By: Jasper Gross on 06-14-2023 Glucose [Mass/Vol] 144 mg/dL 70-100 [facility] Comment on above: ADA recommended refe rence rangeRandom Glucose Reference Range is dependent on time and content of last meal. Glucose of more than 200 mg/dL in a nonstressed, ambulatory subject supports the diagnosis of Diabetes Mellitus. Hematocrit Auto (Bld) [Volum e fraction]Ordered By: Jasper Gross on 06-14-2023 Hematocrit (Bld) [Volume fraction] 40.8 % 38.8-50.0 [facility] Hemoglobin [Mass/volume] in BloodOrdered By: Jasper Gross on 06-14-2023 Hemoglobin (Bld) [Mass/Vol] 14.3 g/dL 13.0-17.0 [facility] INR in Platelet poor plasma by Coagulation assayOrdered By: Jasper Gross on 06-14-2023 INR Coag (PPP) [Relative time] 1.1 {INR} [facility] Comment on above: INR Therapeutic Rang [...] RBC Auto (Bld) [#/Vol] 8.1 10*3/uL 4.1-10.5 [facility] Lymphocytes Auto (Bld) [#/Vo l]Ordered By: Jasper Gross on 06-14-2023 Lymphocytes (Bld) [#/Vol] 1.5 10*3/uL 1.00-4.8 [facility] Lymphocytes/100 WBC Auto (Bl d)Ordered By: Jasper Gross on 06-14-2023 Lymphocytes/100 WBC (Bld) 18.5 % . [facility] MCH Auto (RBC) [Entitic mass ]Ordered By: Jasper Gross on 06-14-2023 MCH (RBC) [Entitic mass] 30.1 pg 27.5-35.2 [facility] MCHC Auto (RBC) [Mass/Vol]Or dered By: Jasper Gross on 06-14-2023 MCHC (RBC) [Mass/Vol] 34.9 g/dL 32.5-35.6 [facility] MCV Auto (RBC) [Entitic vol] Ordered By: Jasper Gross on 06-14-2023 MCV (RBC) [Entitic vol] 86.2 fL 83.5-101 [facility] Magnesiumon 06-14-2023 Magnesium [Mass/Vol] 2.0 mg/dL Normal 1.9-2.7 [facility] Comment on above: Result Comment: PERF ORMED BY: [place] [address] PATHOLOGIST MEDICAL AND SCIENTIFIC ILLUSTRATOR RAPHAEL RANGEL M.D. Performed By: #### B UNIX ARCHITECT, CK, MG, CBC, HS TROP, PTT, PT, CMP #### [address] Magnesium [Mass/volume] in S taylor or PlasmaOrdered By: Jasper Gross on 06-14-2023 Magnesium [Mass/Vol] 2.0 mg/dL 1.9-2.7 [facility] Monocyte distribution width [Entitic volume] in Blood by AutomatedOrdered By: Jasper Gross on 06-14-2023 Monocyte distribution width Auto (Bld) [Entitic vol] 16.39 % 0.00-20.00 [facility] Monocytes Auto (Bld) [#/Vol] Ordered By: Jasper Gross on 06-14-2023 Monocytes (Bld) [#/Vol] 0.8 10*3/uL 0.0-0.8 [facility] Monocytes/100 WBC Auto (Bld) Ordered By: Jasper Gross on 06-14-2023 Monocytes/100 WBC (Bld) 10.1 % . [facility] Natriuretic peptide B [Mass/ Vol]Ordered By: Jasper Gross on 06-14-2023 Natriuretic peptide B (Bld) [Mass/Vol] 67.0 pg/mL 5-100 [facility] Neutrophils Auto (Bld) [#/Vo l]Ordered By: Jasper Gross on 06-14-2023 Neutrophils (Bld) [#/Vol] 4.9 10*3/uL 1.8-7.7 [facility] Neutrophils/100 WBC Auto (Bl d)Ordered By: Jasper Gross on 06-14-2023 Neutrophils/100 WBC (Bld) 61.2 % . [facility] No Panel InformationOrdered By: Jasper Gross on 06-14-2023 Estimated GFR (CKD-EPI) > 60.0 mL/Min [facility] Creatinine Clearance (Chem 92.42 [facility] Nucleated erythrocytes [Pres ence] in Blood by Automated countOrdered By: Jasper Gross on 06-14-2023 Nucleated RBC Auto Ql (Bld) 0.1 /100{WBC} 0-0.5 [facility] Partial Thromboplastin Timeo n 06-14-2023 aPTT Coag (Bld) [Time] 30.2 s Normal 25.1-36.5 [facility] Comment on above: Result Comment: A he matocrit value greater than 55% may lead to inaccurate results in coagulation testing. Patients having hematocrit values >55% require a special collection tube for coagulation studies. Please contact the laboratory at [phone] for redraw instructions. PERFORMED BY: [place] [address] PATHOLOGIST MEDICAL AND SCIENTIFIC ILLUSTRATOR RAPHAEL RANGEL M.D. Performed By: #### C OVID19 FLU RSV, CEPHEID NEG #### [address] Platelet mean volume Auto (B ld) [Entitic vol]Ordered By: Jasper Gross on 06-14-2023 Platelet mean volume (Bld) [Entitic vol] 8.4 fL 6.6-10.1 [facility] Platelets Auto (Bld) [#/Vol] Ordered By: Jasper Gross on 06-14-2023 Platelets (Bld) [#/Vol] 181 10*3/uL 150-450 [facility] Potassium [Moles/volume] in Serum or PlasmaOrdered By: Jasper Gross on 06-14-2023 Potassium [Moles/Vol] 3.9 mmol/L 3.5-5.1 [facility] Protein [Mass/volume] in Ser um or PlasmaOrdered By: Jasper Gross on 06-14-2023 Protein [Mass/Vol] 6.6 g/dL 6.4-8.9 [facility] Prothrombin Time INRon 06-14 INR Coag (PPP) [Relative time] 1.1 {INR} Normal [facility] Comment on above: Result Comment: INR [...] 3 - 4.5 Performed By: #### B UNIX ARCHITECT, CK, MG, CBC, HS TROP, PTT, PT, CMP #### [facility] [address] PT Coag (PPP) [Time] 12.1 s Normal 9.0-12.9 [facility] Comment on above: Result Comment: A he matocrit value greater than 55% may lead to inaccurate results in coagulation testing. Patients having hematocrit values >55% require a special collection tube for coagulation studies. Please contact the laboratory at [phone] for redraw instructions. Performed By: #### B UNIX ARCHITECT, CK, MG, CBC, HS TROP, PTT, PT, CMP #### [facility] [address] [place] [id number] [facility] Prothrombin time (PT)Ordered By: Jasper Gross on 06-14-2023 PT Coag (PPP) [Time] 12.1 s 9.0-12.9 [facility] Comment on above: A hematocrit value g reater than 55% may lead to inaccurate results in coagulation testing. Patients having hematocrit values >55% require a special collection tube for coagulation studies. Please contact the laboratory at [phone] for redraw instructions. RBC Auto (Bld) [#/Vol]Ordere d By: Jasper Gross on 06-14-2023 RBC (Bld) [#/Vol] 4.74 10*6/uL 3.90-5.60 [facility] Serum or plasma albumin/glob ulin mass ratioOrdered By: Jasper Gross on 06-14-2023 Albumin/Globulin [Mass ratio] 1.6 {ratio} [facility] Serum or plasma anion gap de terminationOrdered By: Jasper Gross on 06-14-2023 Anion gap [Moles/Vol] 11.5 mmol/L 6.0-15.0 [facility] Sodium [Moles/volume] in Ser um or PlasmaOrdered By: Jasper Gross on 06-14-2023 Sodium [Moles/Vol] 136 mmol/L 136-145 [facility] Troponin I High Sensitivityo n 06-14-2023 Troponin I High Sensitivity 26.8 pg/mL High 0.0-20.0 [facility] Comment on above: Result Comment: PERF ORMED BY: [place] [address] PATHOLOGIST MEDICAL AND SCIENTIFIC ILLUSTRATOR RAPHAEL RANGEL M.D. Performed By: #### C OVID19 FLU RSV, CEPHEID NEG #### [address] Troponin I.cardiac [Mass/vol ume] in Serum or Plasma by Detection limit <= 0.01 ng/Ordered By: Jasper Gross on 06-14-2023 Troponin I.cardiac DL <= 0.01 ng/mL [Mass/Vol] 26.8 pg/mL 0.0-20.0 [facility] Urea nitrogen [Mass/volume] in Serum or PlasmaOrdered By: Jasper Gross on 06-14-2023 Urea nitrogen [Mass/Vol] 12 mg/dL 7-25 [facility] WBC Auto (Bld) [#/Vol]Ordere d By: Jasper Gross on 06-14-2023 WBC (Bld) [#/Vol] 8.1 10*3/uL 4.1-10.5 [facility] XR chest 2V*on 06-14-2023 XR chest 2V* [facility] Main [place] [address] [place] [address] XRay Report Signed Patient: Demarcus Calderon MR#: [id number] 652 : 1955 Acct:[id number] Age/Sex: 68 / M ADM Date: 06/14/23 Loc: ER Room: Type: [facility] ER Attending Dr: Copies to: Jasper [...] Salvador Nguyễn M.D.06/14/2023 1:59 PM Dictation Location: [place] [address] Transcribed By: [facility] 06/14/23 1359 Dictated By: Salvador Nguyễn DO 06/14/23 1354 Signed By: 06/14/23 1359 Normal [facility] Cardiac echo study Procedure on 03-20-2023 Ordered by an unspec ified provider. [facility] Alanine aminotransferase [En zymatic activity/volume] in Serum or PlasmaOrdered By: Sera Flower on 02-05-2023 ALT [Catalytic activity/Vol] 51 U/L 7-52 [facility] Albumin [Mass/volume] in Ser um or Plasma by Bromocresol green (BCG) dye binding methoOrdered By: Sera Flower on 02-05-2023 Albumin BCG dye [Mass/Vol] 4.4 g/dL 3.5-5.7 [facility] Alkaline phosphatase [Enzyma tic activity/volume] in Serum or PlasmaOrdered By: Sera Flower on 02-05-2023 ALP [Catalytic activity/Vol] 61 U/L 34-104 [facility] Aspartate aminotransferase [ Enzymatic activity/volume] in Serum or PlasmaOrdered By: Sera Flower on 02-05-2023 AST [Catalytic activity/Vol] 39 U/L 13-39 [facility] Bilirubin.total [Mass/volume ] in Serum or PlasmaOrdered By: Sera Flower on 02-05-2023 Bilirubin [Mass/Vol] 0.7 mg/dL 0.3-1.0 [facility] Calcium [Mass/volume] in Ser um or PlasmaOrdered By: Sera Flower on 02-05-2023 Calcium [Mass/Vol] 9.1 mg/dL 8.6-10.3 [facility] Carbon dioxide, total [Moles /volume] in Serum or PlasmaOrdered By: Sera Flower on 02-05-2023 CO2 [Moles/Vol] 28.0 mmol/L 21.0-31.0 [facility] Chloride [Moles/volume] in S taylor or PlasmaOrdered By: Sera Flower on 02-05-2023 Chloride [Moles/Vol] 103 mmol/L 98-107 [facility] Comprehensive Metabolic Pane maria esther 02-05-2023 Albumin [Mass/Vol] 4.4 g/dL Normal 3.5-5.7 [facility] Comment on above: Order Comment: PT IS FASTING Performed By: #### C MP #### [facility] [address] Albumin/Globulin [Mass ratio] 2.6 {ratio} Normal [facility] Comment on above: Order Comment: PT IS FASTING Performed By: #### C MP #### [facility] [address] ALP [Catalytic activity/Vol] 61 U/L Normal 34-104 [facility] Comment on above: Order Comment: PT IS FASTING Result Comment: PERF ORMED BY: [facility] [address] [place] [address] PATHOLOGIST MEDICAL AND SCIENTIFIC ILLUSTRATOR RAPHAEL RANGEL M.D. Performed By: #### C MP #### [facility] [address] [place] [address] [place] ALT [Catalytic activity/Vol] 51 U/L Normal 7-52 [facility] Comment on above: Order Comment: PT IS FASTING Performed By: #### C MP #### [facility] [address] Anion gap [Moles/Vol] 11.4 mmol/L Normal 6.0-15.0 [facility] Comment on above: Order Comment: PT IS FASTING Performed By: #### C MP #### [facility] [address] AST [Catalytic activity/Vol] 39 U/L Normal 13-39 [facility] Comment on above: Order Comment: PT IS FASTING Performed By: #### C MP #### [facility] [address] Bilirubin [Mass/Vol] 0.7 mg/dL Normal 0.3-1.0 [facility] Comment on above: Order Comment: PT IS FASTING Performed By: #### C MP #### [address] Calcium [Mass/Vol] 9.1 mg/dL Normal 8.6-10.3 [facility] Comment on above: Order Comment: PT IS FASTING Performed By: #### C MP #### [address] Chloride [Moles/Vol] 103 mmol/L Normal 98-107 [facility] Comment on above: Order Comment: PT IS FASTING Performed By: #### C MP #### [address] CO2 [Moles/Vol] 28.0 mmol/L Normal 21.0-31.0 [facility] Comment on above: Order Comment: PT IS FASTING Performed By: #### C MP #### [address] Creatinine [Mass/Vol] 1.00 mg/dL Normal 0.70-1.30 [facility] Comment on above: Order Comment: PT IS FASTING Performed By: #### C MP #### [place] [address] [place] GFR/1.73 sq M.predicted MDRD (S/P/Bld) [Vol rate/Area] mL/min/{1.73_m2} Normal [facility] Comment on above: Order Comment: PT IS FASTING Performed By: #### C MP #### [facility] [address] Globulin (S) [Mass/Vol] 1.7 g/dL Normal [facility] Comment on above: Order Comment: PT IS FASTING Performed By: #### C MP #### [facility] [address] Glucose [Mass/Vol] 93 mg/dL Normal 70-100 [facility] Comment on above: Order Comment: PT IS FASTING Result Comment: [facility] Glucose Reference Range is dependent on time and content of last meal. Glucose of more than 200 mg/dL in a nonstressed, ambulatory subject supports the diagnosis of Diabetes Mellitus. ADA recommended reference range Performed By: #### C MP #### [address] Potassium [Moles/Vol] 4.4 mmol/L Normal 3.5-5.1 [facility] Comment on above: Order Comment: PT IS FASTING Performed By: #### C MP #### [facility] [address] Protein [Mass/Vol] 6.1 g/dL Low 6.4-8.9 [facility] Comment on above: Order Comment: PT IS FASTING Performed By: #### C MP #### [address] Sodium [Moles/Vol] 138 mmol/L Normal 136-145 [facility] Comment on above: Order Comment: PT IS FASTING Performed By: #### C MP #### [place] [address] [place] Urea nitrogen [Mass/Vol] 15 mg/dL Normal 7-25 [facility] Comment on above: Order Comment: PT IS FASTING Performed By: #### C MP #### [place] [address] [place] Creatinine [Mass/volume] in Serum or PlasmaOrdered By: Sera Flower on 02-05-2023 Creatinine [Mass/Vol] 1.00 mg/dL 0.70-1.30 [facility] ECH echo transthoracicon ECH echo transthoracic [facility] Main [place] [address] [place] [address] Echocardiogram Signed Patient: Demarcus Calderon MR#: [id number] 652 : 1955 Acct:[id number] Age/Sex: 68 / M ADM Date: 02/05/23 Loc: Room: Type: [facility] Attending Dr: Rene Cortez MD Ordering Provider: Rene Cortez MD, [facility] Date of Service: 02/05/23/ ECH/[facility] echo transthoracic: HTN, ISCHEMIC CARDIOMYOPATHY Copies to: Rene Cortez MD, [facility] BSA: 2.2 m2 BP: 141/82 mmHg HR: 53 Reason For Study: HTN, ISCHEMIC CARDIOMYOPATHY History: HTN, HLD, Former Smoker, [place], 5 Stents, Asthma, Emphysema, COVID Interpretation Summary [...] 02/05/23 1042 Signed By: Rene Cortez MD, [facility] 02/05/23 1207 Normal [facility] Globulin Calc (S) [Mass/Vol] Ordered By: Sera Flower on 02-05-2023 Globulin (S) [Mass/Vol] 1.7 g/dL [facility] Glucose [Mass/volume] in Ser um or PlasmaOrdered By: Sera Flower on 02-05-2023 Glucose [Mass/Vol] 93 mg/dL 70-100 [facility] Comment on above: ADA recommended refe rence rangeRandom Glucose Reference Range is dependent on time and content of last meal. Glucose of more than 200 mg/dL in a nonstressed, ambulatory subject supports the diagnosis of Diabetes Mellitus. No Panel InformationOrdered By: Sera Flower on 02-05-2023 Estimated GFR (CKD-EPI) > 60.0 mL/Min [facility] Creatinine Clearance (Chem N/A [facility] No Panel Informationon 02-05 [facility] Heart-Sand daniel [address] DO Work Phone: Potassium [Moles/volume] in Serum or PlasmaOrdered By: Sera Flower on 02-05-2023 Potassium [Moles/Vol] 4.4 mmol/L 3.5-5.1 [facility] Protein [Mass/volume] in Ser um or PlasmaOrdered By: Sera Flower on 02-05-2023 Protein [Mass/Vol] 6.1 g/dL 6.4-8.9 [facility] Serum or plasma albumin/glob ulin mass ratioOrdered By: Sera Flower on 02-05-2023 Albumin/Globulin [Mass ratio] 2.6 {ratio} [facility] Serum or plasma anion gap de terminationOrdered By: Sera Flower on 02-05-2023 Anion gap [Moles/Vol] 11.4 mmol/L 6.0-15.0 [facility] Sodium [Moles/volume] in Ser um or PlasmaOrdered By: Sera Flower on 02-05-2023 Sodium [Moles/Vol] 138 mmol/L 136-145 [facility] Urea nitrogen [Mass/volume] in Serum or PlasmaOrdered By: Sera Flower on 02-05-2023 Urea nitrogen [Mass/Vol] 15 mg/dL 7-25 [facility] CARDIAC STRESS/REST INJE CTIONon 01-03-2023 [facility] CARDIAC STRESS/REST INJECTION Patient Name: DEMARCUS CALDERON STUDY: MYOCARDIAL PERFUSION STRESS TEST WITH LEXISCAN Performing facility: [facility], [address] [place] [address], [address] Provider: Rene Cortez MD, FACC PCP: Dr. Hunter Flower Supervising provider: Danna Davis DO, [facility] INDICATION: CAD; HTN Hyperlipidemia Ischemic cardiomyopathy HISTORY: Gender: M; Age: 68 y/o ; Height: 172.72 cm; Weight: 589.5631531 kg. CAD; High Cholesterol; HTN; Quit smoking 38 years ago. Cardiac catheterization on 2009. PTCA on 2009. COMPARISON: Previous nuclear testing completed at [facility]. ACCESSION NUMBER(S): [id number]; [id number]; [id number] ORDERING CLINICIAN: RENE CORTEZ TECHNIQUE: TWO DAY [...] Electronically signed by: RENE CORTEZ MD Normal [facility] No Panel Informationon 01-03 Normal -[facility] daniel 250 DO Work Phone: Office Visit [...] Weight Tips; Status:Complete - Retrospective Authorization; Done: [id number] Some eating tips that can help you lose weight.; Status:Complete - Retrospective Authorization; Done: [id number] Essential hypertension, Ischemic cardiomyopathy Renew: Carvedilol 6.25 MG Oral Tablet (Coreg); TAKE 1 TABLET TWICE DAILY WITH MEALS SocHx: Former smoker Stop: Losartan Potassium 25 MG Oral Tablet Tobacco Use Screening; Status:Complete; Done: [id number] Unlinked Stop: hydroCHLOROthiazide 25 MG Oral Tablet [...] emphasis on low-calorie diet Rene Cortez MD, [facility] Surgical History Problems [...] No a (more content not included)... Normal [email or web address] Tobacco Screening.on 023 Adult depression screening assessment No [facility] [place] 250 DO Work Phone: Fall risk assessment a) No falls within the last year [facility] 250 DO Work Phone: Tobacco use status CP b) No [facility] 250 DO Work Phone: MRI Soft Tissue [...] by Ethan Walsh on 07/16/2022 1246 Normal [facility] Specialist MRI Brain w/o + w/on 023 [...] by Sean Trejo on 07/01/2022 0911 Normal [facility] Case Management Coordinator CNPJaye 06-21-2022 CNPN Telephone (INTMLN) -- DEMARCUS CALDERON ([id number]) 1955 Date Time Provider Department 06/21/22 DEANDRA BENDER During your visit today, we recorded the following information about you: Delores Mccollum 06/21/2022 12:54 PM Signed [facility] called today. : 1955 Allergies: Codeine, Codeine-Guaifenesin, and Guaifenesin (home) [phone] (cell) Reason for call: Sasha F:[phone] Asking for the MRI orders and office notes to be faxed over to [facility]. Patient will be having them done there. Patient last appointment: Visit date not found The patients preferred pharmacy has been captured for this encounter? not asked Delores Heard [facility] 06/21/2022 2:03 PM Signed Notes and MRI [...] Status:Closed by ORQUIDEA SIBLEY on 06/21/22 Normal [facility] XR Ribs w/ PA Chest Left*on 03-13-2022 [...] by Ethan Walsh on 03/13/2022 1254 Normal [facility] Case Management Coordinator XR Chest 2 Views*on 01-18-20 XR Chest 2 Views* COMPARISON: none TECHNIQUE: Upright PA and lateral views of the chest were obtained. FINDINGS: Heart is normal in size. Lungs are clear and well expanded. No pleural effusion or pneumothorax. The bony thorax is unremarkable. IMPRESSION: NO ACUTE CARDIOPULMONARY ABNORMALITY. Report reported and signed by AMALIA LOGAN on 01/17/2022 1243 Normal [facility] Tobacco Screening.on Adult depression screening assessment No [facility] ADOR 250 DO Work Phone: Fall risk assessment a) No falls within the last year [facility] ADOR 250 DO Work Phone: Tobacco use status CPH[facility] b) No [facility] 250 DO Work Phone: CT Chest w/Contraston [...] by AMALIA LOGAN on 08/04/2021 1346 Normal [facility] Complete Blood Count with Au to Diffon 07-29-2021 Basophils (Bld) [#/Vol] 0.05 10*3/uL Normal 0.00-0.20 [facility] Comment on above: Performed By: #### C JOSE ANTONIO, CBCAD #### [facility] [address], [place] [id number] Basophils/100 WBC (Bld) 0.8 % Normal [facility] Comment on above: Performed By: #### C JOSE ANTONIO, CBCAD #### [facility] [address], [place] [id number] Eosinophils (Bld) [#/Vol] 0.46 10*3/uL Normal 0.02-0.50 [facility] Comment on above: Performed By: #### C JOSE ANTONIO, CBCAD #### [facility] [address], [place] [id number] Eosinophils/100 WBC (Bld) 7.7 % Normal [facility] Comment on above: Performed By: #### C JOSE ANTONIO, CBCAD #### [facility] [address], [place] [id number] Erythrocyte distribution width (RBC) [Ratio] 13.3 % Normal 11.0-15.0 [facility] Comment on above: Performed By: #### C JOSE ANTONIO, CBCAD #### [facility] [address], [place] [id number] Hematocrit (Bld) [Volume fraction] 42.2 % Normal 38.5-50.0 [facility] Comment on above: Performed By: #### C MP, CBCAD #### [facility] [address], [place] [id number] Hemoglobin (Bld) [Mass/Vol] 14.5 g/dL Normal 13.0-17.1 [facility] Specialist Comment on above: Performed By: #### C MP, CBCAD #### [facility] [address], [place] [id number] Lymphocytes (Bld) [#/Vol] 1.6 10*3/uL Normal 0.9-3.9 [facility] Specialist Comment on above: Performed By: #### C MP, CBCAD #### [facility] [address], [place] [id number] Lymphocytes/100 WBC (Bld) 26.1 % Normal [facility] Specialist Comment on above: Performed By: #### C MP, CBCAD #### [facility] [address], [place] [id number] MCH (RBC) [Entitic mass] 29.7 pg Normal 27.0-33.0 [facility] Specialist Comment on above: Performed By: #### C MP, CBCAD #### [facility] [address], [place] [id number] MCHC (RBC) [Mass/Vol] 34.4 g/dL Normal 32.0-36.0 [facility] Comment on above: Performed By: #### C MP, CBCAD #### [facility] [address], [place] [id number] MCV (RBC) [Entitic vol] 86 fL Normal 80-100 [facility] Specialist Comment on above: Performed By: #### C MP, CBCAD #### [facility] [address], [place] [id number] Monocytes (Bld) [#/Vol] 0.9 10*3/uL Normal 0.2-0.9 [facility] Specialist Comment on above: Performed By: #### C MP, CBCAD #### [facility] [address], [place] [id number] Monocytes/100 WBC (Bld) 14.6 % Normal [facility] Specialist Comment on above: Performed By: #### C MP, CBCAD #### [facility] [address], [place] [id number] Neutrophils (Bld) [#/Vol] 3.0 10*3/uL Normal 1.5-7.8 [facility] Comment on above: Performed By: #### C MP, CBCAD #### [facility] [address], [place] [id number] Neutrophils/100 WBC (Bld) 50.5 % Normal [facility] Comment on above: Performed By: #### C MP, CBCAD #### [facility] [address], [place] [id number] Platelet mean volume (Bld) [Entitic vol] 10.90 fL Normal 7.50-12.50 [facility] Specialist Comment on above: Performed By: #### C MP, CBCAD #### [facility] [address], [place] [id number] Platelets (Bld) [#/Vol] 166 10*3/uL Normal 140-400 [facility] Specialist Comment on above: Performed By: #### C MP, CBCAD #### [facility] [address], [place] [id number] RBC (Bld) [#/Vol] 4.89 10*6/uL Normal 4.20-5.80 [facility] Specialist Comment on above: Performed By: #### C MP, CBCAD #### [facility] [address], [place] [id number] RDW-SD 41.2 fL Normal 37.0-50.0 [facility] Specialist Comment on above: Performed By: #### C MP, CBCAD #### [facility] [address], [place] [id number] WBC (Bld) [#/Vol] 5.9 10*3/uL Normal 3.8-11.0 [facility] Case Management Coordinator Comment on above: Performed By: #### C MP, CBCAD #### [facility] [address], [place] [id number] [facility] 07-29-2021 Albumin [Mass/Vol] 4.6 g/dL Normal 3.6-5.1 [facility] Case Management Coordinator Comment on above: Performed By: #### C MP, CBCAD #### [facility] [address], [place] [id number] Albumin/Globulin [Mass ratio] 2.7 {ratio} High 1.0-2.5 [facility] Specialist Comment on above: Performed By: #### C MP, CBCAD #### [facility] [address], [place] [id number] ALP [Catalytic activity/Vol] 74 U/L Normal 40-129 [facility] Specialist Comment on above: Performed By: #### C MP, CBCAD #### [facility] [address], [place] [id number] ALT [Catalytic activity/Vol] 55 U/L High 9-46 [facility] Specialist Comment on above: Result Comment: 04/27 Female reference range changed. Performed By: #### C JOSE ANTONIO, CBCAD #### [facility] [address], [place] [id number] Anion gap [Moles/Vol] 16 mmol/L Normal 12-20 [facility] Comment on above: Result Comment: Effe ctive 06/02/2019 reference range changed. Performed By: #### C JOSE ANTONIO, CBCAD #### [facility] [address], [place] [id number] AST [Catalytic activity/Vol] 39 U/L Normal 10-40 [facility] Specialist Comment on above: Performed By: #### C JOSE ANTONIO, CBCAD #### [facility] [address], [place] [id number] BUN/CREA 13 Ratio Normal 6-22 [facility] Comment on above: Performed By: #### C MP, CBCAD #### [facility] [address], [place] [id number] Calcium [Mass/Vol] 9.0 mg/dL Normal 8.6-10.2 [facility] Comment on above: Performed By: #### C MP, CBCAD #### [facility] [address], [place] [id number] Chloride [Moles/Vol] 107 mmol/L Normal 98-107 [facility] Specialist Comment on above: Performed By: #### C MP, CBCAD #### [facility] [address], [place] [id number] CO2 [Moles/Vol] 20 mmol/L Normal 20-31 [facility] Specialist Comment on above: Performed By: #### C MP, CBCAD #### [facility] [address], [place] [id number] Creatinine [Mass/Vol] 1.0 mg/dL Normal 0.7-1.4 [facility] Specialist Comment on above: Performed By: #### C MP, CBCAD #### [facility] [address], [place] [id number] eGFRAA 94 mL/min/1.73m2 Normal >60 [facility] Specialist Comment on above: Performed By: #### C MP, CBCAD #### [facility] [address], [place] [id number] eGFRNAA 78 mL/min/1.73m2 Normal >60 [facility] Specialist Comment on above: Performed By: #### C MP, CBCAD #### [facility] [address], [place] [id number] Globulin (S) [Mass/Vol] 1.7 g/dL Low 1.9-3.7 [facility] Specialist Comment on above: Performed By: #### C MP, CBCAD #### [facility] [address], [place] [id number] Glucose [Mass/Vol] 121 mg/dL High 65-99 [facility] Case Management Coordinator Comment on above: Result Comment: For FASTING Glucose --- ADA reference ranges: Normal 65-99 mg/dl Prediabetes 100-125 Diabetes >/= 126 Performed By: #### C MP, CBCAD #### [facility] [address], [place] [id number] Potassium [Moles/Vol] 4.2 mmol/L Normal 3.5-5.5 [facility] Specialist Comment on above: Performed By: #### C MP, CBCAD #### [facility] [address], [place] [id number] Protein [Mass/Vol] 6.3 g/dL Normal 6.1-8.1 [facility] Case Management Coordinator Comment on above: Performed By: #### C MP, CBCAD #### [facility] [address], [place] [id number] Sodium [Moles/Vol] 139 mmol/L Normal 135-146 [facility] Comment on above: Performed By: #### C MP, CBCAD #### [facility] [address], [place] [id number] TBIL <0.3 Normal [facility] Comment on above: Performed By: #### C MP, CBCAD #### [facility] [address], [place] [id number] Urea nitrogen [Mass/Vol] 12 mg/dL Normal 7-25 [facility] Comment on above: Performed By: #### C MP, CBCAD #### [facility] [address], [place] [id number] Microalbumin (with Creat)on 07-29-2021 mALB <1.2 Low [facility] Comment on above: Result Comment: Unab le to calculate mALB/Crea ratio, mALB is <1.2 mg/dL mALB reference range not established. Performed By: #### m ALBC #### [facility] [address], [place] [id number] UCREA 85 mg/dL Normal 39-259 [facility] Comment on above: Performed By: #### m ALBC #### [facility] [address], [place] [id number] Prostatic Specific Antigen, Totalon 07-29-2021 TPSA 2.330 ng/mL Normal <4.000 [facility] Comment on above: Result Comment: PSA Test Method: ECLIA/Branid e 601 Performed By: #### P SA #### [facility] [address], [place] [id number] Q - URINALYSIS,COMPLETEon Appearance (U) CLEAR Normal CLEAR [facility] Specialist Comment on above: Order Comment: [facility] performed at: [employer] [facility], [address], [address] [place] [address], [place], [address], Margin Trimmer: Rafi Agustin MD [facility] Collection Date/Time: [facility] Results Received Date/Time: [facility] Reported Date/Time: [id number] Performed By: #### 3 4F #### [facility] [address] [place] [address] BACTERIA NONE SEEN Normal NONE SEEN [facility] Case Management Coordinator Comment on above: Order Comment: [facility] performed at: [employer], [employer] [facility], [address], [address] [place] [address], [address] [place] [address], Margin Trimmer: Rafi Agustin MD [facility] Date/Time: [facility] Results Received Date/Time: [facility] Reported Date/Time: Performed By: #### 3 4F #### [facility] [address] [place] [address] Bilirubin Ql (U) Negative Normal NEGATIVE [facility] Case Management Coordinator Comment on above: Order Comment: [facility] performed at: [employer], [employer] [facility], [address] , [address] [place] [address], [address] [place] [address], Margin Trimmer: Rafi Agustin MD [facility] Date/Time: [facility] Results Received Date/Time: [facility] Reported Date/Time: Performed By: #### 3 4F #### [facility] [address] [place] [address] Color (U) YELLOW Normal YELLOW [facility] Case Management Coordinator Comment on above: Order Comment: [facility] performed at: [facility], [employer] [facility], [address], [address] [place] [address], [address] [place] [address], Margin Trimmer: Rafi Agustin MD [facility] Date/Time: [facility] Results Received Date/Time: [facility] Reported Date/Time: Performed By: #### 3 4F #### [facility] [address] [place] [address] Glucose Ql (U) Negative Normal NEGATIVE [facility] Case Management Coordinator Comment on above: Order Comment: [facility] performed at: [facility], [employer] [facility], [address] , [address] [place] [address], [address] [place] [address], Margin Trimmer: Rafi Agustin MD [facility] Date/Time: [facility] Results Received Date/Time: [facility] Reported Date/Time: Performed By: #### 3 4F #### [facility] [address] [place] [address] HYALINE CAST NONE SEEN Normal NONE SEEN [facility] Case Management Coordinator Comment on above: Order Comment: [facility] performed at: [employer] [facility], [address] [place] [address], [address] [place] [address], [address] [place] [address], Margin Trimmer: Rafi Agustin MD [facility] Date/Time: [facility] Results Received Date/Time: [facility] Reported Date/Time: Performed By: #### 3 4F #### [facility] [address] [place] [address] Ketones Ql (U) Negative Normal NEGATIVE [facility] Specialist Comment on above: Order Comment: [facility] performed at: [employer], [employer] [facility], [address] [facility], [address] [place] [address], [address] [place] [address], Margin Trimmer: Rafi Agustin MD [facility] Date/Time: [facility] Results Received Date/Time: [facility] Reported Date/Time: Performed By: #### 3 4F #### [facility] [address] [place] [address] Leukocyte esterase Test strip Ql (U) Negative Normal NEGATIVE [facility] Specialist Comment on above: Order Comment: [facility] performed at: [employer], [employer] [facility], [address] [facility], [address] [place] [address], [address] [place] [address], Margin Trimmer: Rafi Agustin MD [facility] Date/Time: [facility] Results Received Date/Time: [facility] Reported Date/Time: Performed By: #### 3 4F #### [facility] [address] [place] [address] Nitrite Ql (U) Negative Normal NEGATIVE [facility] Specialist Comment on above: Order Comment: [facility] performed at: [employer] [facility], [address] [place] [address], [address] [place] [address], [address] [place] [address], Margin Trimmer: Rafi Agustin MD [facility] Date/Time: [facility] Results Received Date/Time: [facility] Reported Date/Time: Performed By: #### 3 4F #### [facility] [address] [place] [address] OCCULT BLOOD Negative Normal NEGATIVE [facility] Case Management Coordinator Comment on above: Order Comment: [facility] performed at: [employer], [employer] [facility], [address] [place] [address], [address] [place] [address], [address] [place] [address], Margin Trimmer: Rafi Agustin MD [facility] Date/Time: [facility] Results Received Date/Time: [facility] Reported Date/Time: Performed By: #### 3 4F #### [facility] [address] [place] [address] pH (U) 6.5 [pH] Normal 5.0-8.0 [facility] Case Management Coordinator Comment on above: Order Comment: [facility] performed at: [employer], [employer] [facility], [address] [facility], [address] [place] [address], [address] [place] [address], Margin Trimmer: Rafi Agustin MD [facility] Date/Time: [facility] Results Received Date/Time: [facility] Reported Date/Time: Performed By: #### 3 4F #### [facility] [address] [place] [address] Protein Ql (U) Negative Normal NEGATIVE [facility] Case Management Coordinator Comment on above: Order Comment: [facility] performed at: [employer] [facility], [address] [facility], [address] [place] [address], [address] [place] [address], Margin Trimmer: Rafi Agustin MD [facility] Date/Time: [facility] Results Received Date/Time: [facility] Reported Date/Time: Performed By: #### 3 4F #### [facility] [address] [place] [address] RBC NONE SEEN Normal < OR = 2 [facility] Case Management Coordinator Comment on above: Order Comment: [facility] performed at: [employer], [employer] [facility], [address] [place] [address], [address] [place] [address], [address] [place] [address], Margin Trimmer: Rafi Agustin MD [facility] Date/Time: [facility] Results Received Date/Time: [facility] Reported Date/Time: Performed By: #### 3 4F #### [facility] [address] [place] [address] Specific gravity (U) [Rel density] 1.012 Normal 1.001-1.035 [facility] Case Management Coordinator Comment on above: Order Comment: [facility] performed at: [employer] [facility], [address] [place] [address], [address] [place] [address], [address] [place] [address], Margin Trimmer: Rafi Agustin MD [facility] Date/Time: [facility] Results Received Date/Time: [facility] Reported Date/Time: Performed By: #### 3 4F #### [facility] [address] [place] [address] SQUAMOUS EPITHELIAL CELLS NONE SEEN Normal < OR = 5 [facility] Case Management Coordinator Comment on above: Order Comment: [facility] performed at: [employer] [facility], [address] [facility], [address] [place] [address], [address] [place] [address], Margin Trimmer: Rafi Agustin MD [facility] Date/Time: [facility] Results Received Date/Time: [facility] Reported Date/Time: Performed By: #### 3 4F #### [facility] [address] [facility] [place] [address] WBC NONE SEEN Normal < OR = 5 [facility] Case Management Coordinator Comment on above: Order Comment: [facility] performed at: [employer], [address], [address] [facility], [place], [address], Margin Trimmer: Rafi Agustin MD [facility] Date/Time: [facility] Results Received Date/Time: [facility] Reported Date/Time: Performed By: #### 3 4F #### [facility] [address] [place] [address] No Panel Information [facility] Vital Signs Date Time Vital Sign Value Performing Clinician Facility 09-24-2024 13:29-0400 Body height 172.7 cm Sally Risaliti [employer] Work Phone: [facility] 09-24-2024 13:29-0400 Body mass index (BMI) [Ratio] 36.64 kg/m2 Sally Risaliti [employer] Work Phone: [facility] 09-24-2024 13:29-0400 Body weight 109.32 kg Sally Risaliti [employer] Work Phone: [facility] 09-24-2024 13:29-0400 Diastolic blood pressure 64 mm[Hg] Sally Risaliti [employer] Work Phone: [facility] 09-24-2024 13:29-0400 Heart rate 79 /min Sally Risaliti [employer] Work Phone: [facility] 09-24-2024 13:29-0400 SaO2% (BldA) [Mass fraction] 96 % Sally Risaliti [employer] Work Phone: [facility] 09-24-2024 13:29-0400 Systolic blood pressure 130 mm[Hg] Sally Risaliti [employer] Work Phone: [facility] 07-02-2024 09:14-0500 Body height 172.7 cm Sally Risaliti [employer] Work Phone: [facility] 07-02-2024 09:14-0500 Body mass index (BMI) [Ratio] 35.88 kg/m2 Sally Risaliti [employer] Work Phone: [facility] 07-02-2024 09:14-0500 Body weight 107.05 kg Sally Risaliti [employer] Work Phone: [facility] 07-02-2024 09:14-0500 Diastolic blood pressure 86 mm[Hg] Sally Risaliti [employer] Work Phone: [facility] 07-02-2024 09:14-0500 Heart rate 71 /min Sally Risaliti [employer] Work Phone: [facility] 07-02-2024 09:14-0500 SaO2% (BldA) [Mass fraction] 98 % Sally Risaliti [employer] Work Phone: [facility] 07-02-2024 09:14-0500 Systolic blood pressure 138 mm[Hg] Sally Risaliti [employer] Work Phone: [facility] 06-23-2024 14:52-0500 Respiratory rate 16 /min John BAPTISTE [facility] 05-15-2024 08:53-0500 Body height 172.7 cm Rene Cortez MD Work Phone: [facility] 05-15-2024 08:53-0500 Body mass index (BMI) [Ratio] 36.28 kg/m2 Rene Cortez MD Work Phone: [facility] 05-15-2024 08:53-0500 Body weight 108.23 kg Rene Cortez MD Work Phone: [facility] 05-15-2024 08:53-0500 Diastolic blood pressure 66 mm[Hg] Rene Cortez MD Work Phone: [facility] 05-15-2024 08:53-0500 Heart rate 60 /min Rene Cortez MD Work Phone: [facility] 05-15-2024 08:53-0500 Systolic blood pressure 124 mm[Hg] Rene Cortez MD Work Phone: [facility] 05-07-2024 17:27-0500 Body mass index (BMI) [Ratio] 36.67 kg/m2 Jessica Busby UNIX ARCHITECT Work Phone: [facility] 05-07-2024 17:27-0500 Body temperature 97.3 [degF] Jessica Busby UNIX ARCHITECT Work Phone: [facility] 05-07-2024 17:27-0500 Body weight 109.41 kg Jessica Busby UNIX ARCHITECT Work Phone: [facility] 05-07-2024 17:27-0500 Diastolic blood pressure 80 mm[Hg] Jessica Busby UNIX ARCHITECT Work Phone: [facility] 05-07-2024 17:27-0500 Heart rate 73 /min Jessica Busby UNIX ARCHITECT Work Phone: [facility] 05-07-2024 17:27-0500 SaO2% (BldA) [Mass fraction] 97 % Jessica Busby UNIX ARCHITECT Work Phone: [facility] 05-07-2024 17:27-0500 Systolic blood pressure 138 mm[Hg] Jessica Busby UNIX ARCHITECT Work Phone: [facility] 04-28-2024 11:59-0500 Blood Pressure Location SU ADRIÁN [facility] 04-28-2024 11:59-0500 Diastolic blood pressure 68 mm[Hg] SU ADRIÁN [facility] 04-28-2024 11:59-0500 Heart rate 63 /min SU ADRIÁN [facility] 04-28-2024 11:59-0500 Systolic blood pressure 111 mm[Hg] SU ADRIÁN [facility] 04-16-2024 10:11-0500 Diastolic blood pressure 72 mm[Hg] SU ADRIÁN [facility] 04-16-2024 10:11-0500 Mean blood pressure 90 mm[Hg] SU HUMPHRIESRY [facility] 04-16-2024 10:11-0500 Systolic blood pressure 126 mm[Hg] SU ADRIÁN [facility] 04-16-2024 09:45-0500 Blood Pressure Location SU COOK [facility] 04-16-2024 09:45-0500 Body temperature 98.6 [degF] SU HUMPHRIESRY [facility] 04-16-2024 09:45-0500 Diastolic blood pressure 80 mm[Hg] SU ADRIÁN [facility] 04-16-2024 09:45-0500 Heart rate 65 /min SU COOK [facility] 04-16-2024 09:45-0500 Systolic blood pressure 148 mm[Hg] SU ADRIÁN [facility] 03-26-2024 13:03-0400 Body height 172.7 cm Sera Flower MD Work Phone: [facility] 03-26-2024 13:03-0400 Body mass index (BMI) [Ratio] 35.88 kg/m2 Sera Flower MD Work Phone: [facility] 03-26-2024 13:03-0400 Body weight 107.05 kg Sera Flower MD Work Phone: [facility] 03-26-2024 13:03-0400 Diastolic blood pressure 80 mm[Hg] Sera Flower MD Work Phone: [facility] 03-26-2024 13:03-0400 Heart rate 77 /min Sera Flower MD Work Phone: [facility] 03-26-2024 13:03-0400 SaO2% (BldA) [Mass fraction] 96 % Sera Flowre MD Work Phone: [facility] 03-26-2024 13:03-0400 Systolic blood pressure 122 mm[Hg] Sera Flower MD Work Phone: [facility] 02-27-2024 10:29-0400 Body height 172.7 cm Sally Risaliti UNIX ARCHITECT Work Phone: [facility] 02-27-2024 10:29-0400 Body mass index (BMI) [Ratio] 35.43 kg/m2 Sally Risaliti UNIX ARCHITECT Work Phone: [facility] 02-27-2024 10:29-0400 Body weight 105.69 kg Sally Risaliti UNIX ARCHITECT Work Phone: [facility] 02-27-2024 10:29-0400 Diastolic blood pressure 84 mm[Hg] Sally Risaliti UNIX ARCHITECT Work Phone: [facility] 02-27-2024 10:29-0400 Heart rate 67 /min Sally Risaliti UNIX ARCHITECT Work Phone: [facility] 02-27-2024 10:29-0400 SaO2% (BldA) [Mass fraction] 97 % Sally Risaliti UNIX ARCHITECT Work Phone: [facility] 02-27-2024 10:29-0400 Systolic blood pressure 132 mm[Hg] Sally Risaliti UNIX ARCHITECT Work Phone: [facility] 10-18-2023 09:25-0400 Body height 172.7 cm Rene Cortez MD Work Phone: [facility] 10-18-2023 09:25-0400 Body mass index (BMI) [Ratio] 36.31 kg/m2 Rene Cortez MD Work Phone: [facility] 10-18-2023 09:25-0400 Body weight 108.32 kg Rene Cortez MD Work Phone: [facility] 10-18-2023 09:25-0400 Diastolic blood pressure 76 mm[Hg] Rene Cortez MD Work Phone: [facility] 10-18-2023 09:25-0400 Heart rate 68 /min Rene Cortez MD Work Phone: [facility] 10-18-2023 09:25-0400 Systolic blood pressure 120 mm[Hg] Rene Cortez MD Work Phone: [facility] 06-30-2023 10:23-0500 Body mass index (BMI) [Ratio] 35.28 kg/m2 Hosea Snyder DO Work Phone: [facility] 06-30-2023 10:23-0500 Body temperature 97.81 [degF] Hosea Snyder DO Work Phone: [facility] 06-30-2023 10:23-0500 Body weight 105.23 kg Hosea Snyder DO Work Phone: [facility] 06-30-2023 10:23-0500 Diastolic blood pressure 82 mm[Hg] Hosea Snyder DO Work Phone: [facility] 06-30-2023 10:23-0500 Heart rate 86 /min Hosea Snyder DO Work Phone: [facility] 06-30-2023 10:23-0500 Respiratory rate 18 /min Hosea Snyder DO Work Phone: [facility] 06-30-2023 10:23-0500 SaO2% (BldA) [Mass fraction] 94 % Hosea Snyder DO Work Phone: [facility] 06-30-2023 10:23-0500 Systolic blood pressure 138 mm[Hg] Hosea Snyder DO Work Phone: [facility] 06-14-2023 14:25-0500 Body temperature 97.7 [degF] MD Sera Flower Work Phone: [facility] 06-14-2023 14:25-0500 Diastolic blood pressure 74 mm[Hg] MD Sera Flower Work Phone: [facility] 06-14-2023 14:25-0500 Heart rate 78 /min MD Sera Flower Work Phone: [facility] 06-14-2023 14:25-0500 Respiratory rate 20 /min MD Sera Flower Work Phone: [facility] 06-14-2023 14:25-0500 SaO2% (BldA) [Mass fraction] 95 % MD Sera Flower Work Phone: [facility] 06-14-2023 14:25-0500 Systolic blood pressure 155 mm[Hg] MD Sera Flower Work Phone: [facility] 06-14-2023 11:48-0500 Body height 172.72 cm MD Sera Flower Work Phone: [facility] 06-14-2023 11:48-0500 Body weight 108.9 kg MD Sera Flower Work Phone: [facility] 03-23-2023 09:34-0400 Body height 172.7 cm Rene Cortez MD Work Phone: [facility] 03-23-2023 09:34-0400 Body mass index (BMI) [Ratio] 35.12 kg/m2 Rene Cortez MD Work Phone: [facility] 03-23-2023 09:34-0400 Body weight 104.78 kg Rene Cortez MD Work Phone: [facility] 03-23-2023 09:34-0400 Diastolic blood pressure 72 mm[Hg] Rene Cortez MD Work Phone: [facility] 03-23-2023 09:34-0400 Heart rate 60 /min Rene Cortez MD Work Phone: [facility] 03-23-2023 09:34-0400 Systolic blood pressure 128 mm[Hg] Rene Cortez MD Work Phone: [facility] 09-07-2022 11:31-0400 Body height 172.72 cm Sera Flower Work Phone: SA-Xnchntbtuc-Lgfea daniel 250 DO Work Phone: 09-07-2022 11:31-0400 Body mass index (BMI) [Ratio] 36.8 kg/m2 Sera Flower Work Phone: DI-Yytatjgkre-Jifco daniel 250 DO Work Phone: 09-07-2022 11:31-0400 Body surface area Derived from formula 2.22 m2 Sera Flower Work Phone: VA-Xesrgpetjm-Palgc daniel 250 DO Work Phone: 09-07-2022 11:31-0400 Body weight 109.77 kg Sera Flower Work Phone: DK-Kitnnskxdm-Epxzt daniel 250 DO Work Phone: 09-07-2022 11:31-0400 Diastolic blood pressure 68 mm[Hg] Sera Flower Work Phone: YV-Mexwzluinf-Ubxcj daniel 250 DO Work Phone: 09-07-2022 11:31-0400 Heart rate 76 /min Sera Flower Work Phone: BF-Vicxuepoaw-Dttag daniel 250 DO Work Phone: 09-07-2022 11:31-0400 Systolic blood pressure 124 mm[Hg] Sera Flower Work Phone: BI-Vuvjcfvyqt-Xoxzl daniel 250 DO Work Phone: 09-05-2021 14:04-0400 Body height 172.72 cm Sera Flower Work Phone: -[facility] 250 DO Work Phone: 09-05-2021 14:04-0400 Body mass index (BMI) [Ratio] 36.49 kg/m2 Sera Flower Work Phone: -[facility] 250 DO Work Phone: 09-05-2021 14:04-0400 Body surface area Derived from formula 2.21 m2 Sera Flower Work Phone: [facility] 250 DO Work Phone: 09-05-2021 14:04-0400 Body weight 108.86 kg Sera Flower Work Phone: [facility] 250 DO Work Phone: 09-05-2021 14:04-0400 Diastolic blood pressure 82 mm[Hg] Sera Flower Work Phone: [facility] 250 DO Work Phone: 09-05-2021 14:04-0400 Heart rate 70 /min Sera Flower Work Phone: [facility] 250 DO Work Phone: 09-05-2021 14:04-0400 Systolic blood pressure 132 mm[Hg] Sera Flower Work Phone: [facility] 250 DO Work Phone: Encounters Encounter Date Encounter Type Care Provider Facility Start: 12-02-2024 ambulatory John Hauser [place] Facility :[facility] Start: 09-24-2024 End: 09-24-2024 Office outpatient visit 25 minutes Sally Ba UNIX ARCHITECT Work Phone: [facility] Comment on above: Gastroesophageal ref lux disease without esophagitis (Primary Dx); Essential hypertension (CMS/HCC); Pure hypercholesterolemia (CMS/HCC); Chronic systolic (congestive) heart failure; Prediabetes; Coronary artery disease involving [place] coronary artery of [place] heart without angina pectoris (CMS/HCC); Severe persistent asthma, uncomplicated (CMS/HCC); Elevated PSA; BMI 36.0-36.9,adult; Morbid (severe) obesity due to excess calories (CMS/HCC); Medicare annual wellness visit, subsequent; ACP (advance care planning) Start: 09-24-2024 End: 09-24-2024 Patient encounter procedure Sallycory Harrisaliti UNIX ARCHITECT Work Phone: [facility] Start: 09-24-2024 End: 09-24-2024 ambulatory SALLY R RISALITI Not Available Start: 08-26-2024 End: 08-26-2024 ambulatory John BAPTISTE Facility: [place] Start: 08-18-2024 End: 08-18-2024 ambulatory Yasemin X Fabian Facility: [place] Start: 08-15-2024 End: 08-15-2024 ambulatory John BAPTISTE Facility:[facility] Start: 08-08-2024 End: 08-08-2024 ambulatory John BAPTISTE [place] Start: 08-08-2024 End: 08-08-2024 Patient encounter procedure John BAPTISTE [facility] Start: 07-17-2024 End: 07-17-2024 Bamboo flowsheet [...] outpatient visit 25 minutes Sally Loan Harrisaliti UNIX ARCHITECT Work Phone: [facility] Comment on above: Chronic obstructive pulmonary disease, unspecified COPD type (CMS/HCC) (Primary Dx); Bronchiectasis without complication (CMS/HCC); Rash; Skin lesion of back; Sebaceous cyst Start: 07-02-2024 End: 07-02-2024 ambulatory SALLY R RISALITI Not Available Start: 06-23-2024 End: 06-23-2024 ambulatory John BAPTISTE Facility:[facility] [place] Start: 06-23-2024 End: 06-23-2024 Patient encounter procedure John BAPTISTE [facility] [place] Start: 05-15-2024 End: 05-15-2024 Office outpatient visit 25 minutes Rene Cortez MD Work Phone: [facility] Comment on above: Coronary artery dise ase involving [place] coronary artery of [place] heart without angina pectoris (Primary Dx); Essential hypertension; Ischemic cardiomyopathy; Mixed hyperlipidemia; Status post coronary artery stent placement; Former smoker; BMI 36.0-36.9,adult; Class 2 obesity Start: 05-15-2024 End: 05-15-2024 ambulatory RENE Porter [facility] Start: 05-07-2024 End: 05-07-2024 ambulatory JESSICA BUSBY Not Available Start: 05-07-2024 End: 05-07-2024 Office outpatient visit 15 minutes Jessica Busby NP Work Phone: [facility] Comment on above: Non-recurrent acute serous otitis media of right ear (Primary Dx) Start: 04-28-2024 End: 04-28-2024 ambulatory SU COOK [facility] [place] Start: 04-28-2024 End: 04-28-2024 Patient encounter procedure SU COOK [facility] [place] Start: 04-25-2024 End: 04-25-2024 Lab Drop off SU COOK [facility] Start: 04-25-2024 End: 04-25-2024 ambulatory SU COOK Facility:[facility] Start: 04-25-2024 End: 04-25-2024 Patient encounter procedure SU COOK [facility] Start: 04-16-2024 End: 04-16-2024 ambulatory SERA FLOWER Facility[place] [place] Start: 04-16-2024 End: 04-16-2024 Patient encounter procedure SU COOK [facility] [place] Start: 03-26-2024 End: 03-26-2024 Office outpatient visit 25 minutes Sera Flower MD Work Phone: [facility] Comment on above: Essential hypertensi on (CMS/HCC) (Primary Dx); Chronic systolic congestive heart failure (CMS/HCC); Coronary artery disease involving [place] coronary artery of [place] heart without angina pectoris (CMS/HCC); Chronic obstructive pulmonary disease, unspecified COPD type (CMS/HCC); Pure hypercholesterolemia (CMS/HCC); Prediabetes; Elevated PSA; Benign prostatic hyperplasia without urinary obstruction; Bacterial pneumonia; Sinus drainage Start: 03-26-2024 End: 03-26-2024 ambulatory SERA FLOWER Not Available Start: 03-05-2024 ambulatory SU COOK Facility : [place] Start: 02-27-2024 End: 02-27-2024 Transitional care manage srvc 7 day discharge Sally Ba NP Work Phone: [facility] Comment on above: Sepsis, due to unspe cified organism, unspecified whether acute organ dysfunction present (CMS/HCC) (Primary Dx); Pneumonia of right middle lobe due to infectious organism; Hyponatremia; Essential hypertension (CMS/HCC); Chronic systolic congestive heart failure (CMS/HCC); Coronary artery disease involving [place] coronary artery of [place] heart without angina pectoris (CMS/HCC); Gastroesophageal reflux disease without esophagitis; Benign prostatic hyperplasia without urinary obstruction Start: 02-27-2024 End: 02-27-2024 ambulatory SALLY BA Not Available Start: 02-18-2024 End: 02-19-2024 Clinisync Result Encounter Shaikh Balwinder SHELLEY Work Phone: [facility] External Department Unsolicited Start: 02-18-2024 End: [...] 25 minutes Rene Cortez MD Work Phone: [facility] Comment on above: Coronary artery dise ase involving [place] coronary artery of [place] heart without angina pectoris (Primary Dx); Essential hypertension; Mixed hyperlipidemia; Ischemic cardiomyopathy; Status post coronary artery stent placement; Class 2 obesity with body mass index (BMI) of 35.0 to 35.9 in adult, unspecified obesity type, unspecified whether serious comorbidity present; Former smoker Start: 10-18-2023 End: 10-18-2023 ambulatory WALKER M [facility] Start: 06-30-2023 End: 06-30-2023 Office outpatient visit 25 minutes Hosea Snyder DO Work Phone: [facility] Comment on above: Acute exacerbation o f chronic obstructive pulmonary disease (CMS/HCC) (Primary Dx) Start: 06-14-2023 End: 06-14-2023 Emergency department patient visit Jasper Gross Facility:[facility] Start: 06-14-2023 End: 06-14-2023 Emergency department patient visit MD Sera Flower Work Phone: [facility] Work Phone: Start: 03-23-2023 End: 03-23-2023 Office outpatient visit 25 minutes Rene Cortez MD Work Phone: [facility] Comment on above: Coronary artery dise ase involving [place] coronary artery of [place] heart without angina pectoris; Essential hypertension; Mixed hyperlipidemia; Ischemic cardiomyopathy; Status post coronary artery stent placement; Class 2 obesity with body mass index (BMI) of 35.0 to 35.9 in adult, unspecified obesity type, unspecified whether serious comorbidity present Start: 02-06-2023 Other Sera Flower Work Phone: [facility] 250 DO Work Phone: Start: 02-05-2023 End: 02-05-2023 ambulatory Rene Cortez Facility:[facility] Start: 02-05-2023 End: 02-05-2023 ambulatory MD Sera Flower Work Phone: [facility] Work Phone: Start: 02-05-2023 End: 02-05-2023 Patient encounter procedure MD Sera Flower Work Phone: [facility]-Electrodiagnostic s Work Phone: Start: 02-05-[address] Sera Flower Facility:[id number] Start: 01-30-2023 AUDIT Sera Flower Work Phone: [facility] 600 DO Work Phone: Start: 01-15-2023 Other Sera Flower Work Phone: [facility] 250 DO Work Phone: Start: 01-12-2023 Chart Update Sera Flower Work Phone: [facility] 250 DO Work Phone: Start: 01-04-[address] Sera Flower Facility:[id number] Start: 01-03-[address] Sera Flower Facility:[id number] Start: 11-14-2022 End: 11-14-2022 ambulatory DEANDRA BENDER Facility:[facility] Start: 11-14-2022 End: 11-14-2022 Patient encounter procedure Deandra Bender MD Work Phone: Ophthalmology Comment on above: Clonic hemifacial sp asm, right (Primary Dx) Start: 09-07-2022 Office outpatient vi sit 25 minutes Sera Flower Work Phone: [facility]ih[facility] y 250 DO Work Phone: Start: 09-07-2022 ambulatory Rene Oropezaim Facility :[facility] Start: 08-08-2022 End: 08-08-2022 ambulatory DEANDRA NAPOLEON Facility:[facility] Start: 08-08-2022 End: 08-08-2022 Patient encounter procedure Deandra Bender MD Work Phone: Ophthalmology Comment on above: Clonic hemifacial sp asm, right (Primary Dx) Start: 06-21-2022 Telephone encounter Deandra Bender MD Work Phone: [facility] [place] Comment on above: Orders Start: 06-21-2022 End: 06-21-2022 ambulatory DEANDRA BENDER Facility:[facility] Start: 06-21-2022 End: 06-21-2022 Patient encounter procedure Deandra Bender MD Work Phone: Ophthalmology Comment on above: Clonic hemifacial sp asm, right (Primary Dx); Paralytic strabismus; Jada's syndrome Start: 05-01-2022 End: 05-01-2022 ambulatory MAU RANDLE Facility:[facility] Start: 05-01-2022 End: 05-01-2022 Patient encounter procedure Mau Randle OD Work Phone: Ophthalmology Comment on above: Eyelid myokymia (Velma maren Dx); Dry eye syndrome of both eyes; Hyperopia of both eyes with astigmatism and presbyopia Start: 09-05-2021 Office outpatient vi sit 25 minutes Sera Flower Work Phone: [facility] 250 DO Work Phone: Procedures Date [...] Cortez MD Work Phone: Start: 11-14-2022 [facility] [facility] innervated facial nrv unil Deandra Bender MD Work Phone: Start: 08-08-2022 [facility] innervated facial nrv unil 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 Work Phone: Start: 07-28-2019 Colonoscopy Hosea Snyder [...] 07-27-2029 Screening for malignant neoplasm of colon [facility] Start: 09-13-2028 Lipid panel Lipid Panel [facility] Start: 08-11-2027 DTaP/Tdap/Td Vaccines (2 - Td or Tdap) DTaP/Tdap/Td Vaccines (2 - Td or Tdap) [facility] Start: 03-30-2025 End: 03-30-2025 Patient encounter procedure 03/30/2025 9:15 AM EST Office Visit [facility] [address] [place] [phone] Sera Flower MD [address] [facility] [address] [place] [address] [facility] Start: 03-23-2025 End: 09-19-2025 CBC W Auto Differential panel - Blood CBC and differential Lab Routine Essential hypertension (CMS/HCC) Expected: 03/23/2025 (Approximate), Expires: 09/19/2025 [facility] Work Phone: Comment on above: Expected: 03/23/2025 (Approximate), Expi res: 09/19/2025 Start: 03-23-2025 End: 09-19-2025 Comprehensive metabolic 2000 panel - Serum or Plasma Comprehensive metabolic panel Lab Routine Essential hypertension (CMS/HCC) Expected: 03/23/2025 (Approximate), Expires: 09/19/2025 [facility] Comment on above: Expected: 03/23/2025 (Approximate), Expi res: 09/19/2025 Start: 03-23-2025 End: 09-19-2025 Hemoglobin a1c with eag Hemoglobin a1c with eag Lab Routine Prediabetes Expected: 03/23/2025 (Approximate), Expires: 09/19/2025 [facility] Comment on above: Expected: 03/23/2025 (Approximate), Expi res: 09/19/2025 Start: 03-23-2025 End: 09-19-2025 Lipid 1996 panel - Serum or Plasma Lipid panel Lab Routine Pure hypercholesterolemia (CMS/HCC) Expected: 03/23/2025 (Approximate), Expires: 09/19/2025 [facility] Comment on above: Expected: 03/23/2025 (Approximate), Expi res: 09/19/2025 Start: 03-23-2025 End: 09-19-2025 Microalbumin/Creatinine panel in random Urine Microalbumin / creatinine urine ratio Lab Routine Essential hypertension (CMS/HCC) Expected: 03/23/2025 (Approximate), Expires: 09/19/2025 [facility] Comment on above: Expected: 03/23/2025 (Approximate), Expi res: 09/19/2025 Start: 03-23-2025 End: 09-19-2025 Urinalysis complete panel - Urine Urinalysis with microscopic Lab Routine Essential hypertension (CMS/HCC) Expected: 03/23/2025 (Approximate), Expires: 09/19/2025 [facility] Comment on above: Expected: 03/23/2025 (Approximate), Expi res: 09/19/2025 Start: 01-06-2025 End: 01-06-2025 Patient encounter procedure 01/06/2025 10:20 AM EDT Office Visit [facility] [address] [facility] [address] [place] [address] Rene Cortez MD [address] [facility] [address] [place] [address] [facility] Start: 09-24-2024 End: 12-24-2024 Basic metabolic 1998 panel - Serum or Plasma Basic metabolic panel Lab Routine Chronic systolic (congestive) heart failure Expected: 09/24/2024 (Approximate), Expires: 12/24/2024 [facility] Comment on above: Expected: 09/24/2024 (Approximate), Expi res: 12/24/2024 Start: 09-24-2024 End: 09-24-2024 Patient encounter procedure 09/24/2024 1:30 PM EDT Office Visit [facility] [address] [place] [phone] Sally Ba NP [address] [place] [address] [facility] Start: 09-19-2024 Medicare Annual Wellness (AWV) Medicare Annual Wellness (AWV) [facility] Start: 07-17-2024 End: 07-17-2024 Patient encounter procedure 07/17/2024 10:35 AM EST Office Visit [facility] [address] [place] [phone] Marybeth Long MD [address] [place] [address] Skin lesion of back; Sebaceous cyst [facility] Comment on above: Skin lesion of back; Sebaceous cyst Start: 05-15-2024 End: 05-15-2024 Patient encounter procedure 05/15/2024 9:10 AM EST Office Visit [facility] [address] [facility] [address] [place] [phone] Rene Cortez MD [address] [facility] [address] [place] [address] [facility] Start: 04-25-2024 End: 02-26-2025 XR Chest 2 Views XR chest 2 views Imaging Routine Pneumonia of right middle lobe due to infectious organism Expected: 04/25/2024, Expires: 02/26/2025 [facility] Work Phone: Comment on above: Expected: 04/25/2024, Expires: Start: 03-26-2024 End: 03-26-2024 Patient encounter procedure 03/26/2024 1:00 PM EDT Office Visit [facility] [address] [place] [phone] Sera Flower MD [address] [place] [address] [facility] Start: 03-20-2024 Echocardiography Echocardiogram [facility] Start: 02-27-2024 End: 02-27-2024 Patient encounter procedure 02/27/2024 10:45 AM EDT Office Visit [facility] [address] [place] [id number] Sally Ba NP [address] [place] [address] [facility] Start: 01-27-2024 COVID-19 Vaccine ( season) COVID-19 Vaccine ( season) [facility] Start: 01-27-2024 Influenza vaccination [facility] Start: 10-18-2023 End: 10-18-2023 Patient encounter procedure 10/18/2023 9:30 AM EDT Office Visit [facility] [address] [facility] [address] [place] [address] Rene Cortez MD [address] [place] [address] [facility] Start: 09-20-2023 End: 09-20-2023 Patient encounter procedure 09/20/2023 1:00 PM EDT Office Visit [facility] [address] [place] [phone] Sera Flower MD [address] [place] [address] [facility] Start: 03-23-2023 End: 03-23-2024 Alanine aminotransferase [Enzymatic activity/volume] in Serum or Plasma by With P-5'-P Alanine Aminotransferase Lab Routine Coronary artery disease involving [place] coronary artery of [place] heart without angina pectoris Essential hypertension Mixed hyperlipidemia Ischemic cardiomyopathy Status post coronary artery stent placement Class 2 obesity with body mass index (BMI) of 35.0 to 35.9 in adult, unspecified obesity type, unspecified whether serious comorbidity present Expected: 03/23/2023 (Approximate), Expires: 03/23/2024 [facility] Work Phone: Comment on above: Expected: 03/23/2023 (Approximate), Expi res: 03/23/2024 Start: 03-23-2023 End: 03-23-2024 Aspartate aminotransferase [Enzymatic activity/volume] in Serum or Plasma by With P-5'-P Aspartate Aminotransferase Lab Routine Coronary artery disease involving [place] coronary artery of [place] heart without angina pectoris Essential hypertension Mixed hyperlipidemia Ischemic cardiomyopathy Status post coronary artery stent placement Class 2 obesity with body mass index (BMI) of 35.0 to 35.9 in adult, unspecified obesity type, unspecified whether serious comorbidity present Expected: 03/23/2023 (Approximate), Expires: 03/23/2024 [facility] Work Phone: Comment on above: Expected: 03/23/2023 (Approximate), Expi res: 03/23/2024 Start: 03-23-2023 End: 03-23-2024 Basic metabolic 2000 panel - Serum or Plasma Basic Metabolic Panel Lab Routine Coronary artery disease involving [place] coronary artery of [place] heart without angina pectoris Essential hypertension Mixed hyperlipidemia Ischemic cardiomyopathy Status post coronary artery stent placement Class 2 obesity with body mass index (BMI) of 35.0 to 35.9 in adult, unspecified obesity type, unspecified whether serious comorbidity present Expected: 03/23/2023 (Approximate), Expires: 03/23/2024 [facility] Work Phone: Comment on above: Expected: 03/23/2023 (Approximate), Expi res: 03/23/2024 Start: 03-23-2023 End: 03-23-2024 CBC panel - Blood by Automated count CBC Lab Routine Coronary artery disease involving [place] coronary artery of [place] heart without angina pectoris Essential hypertension Mixed hyperlipidemia Ischemic cardiomyopathy Status post coronary artery stent placement Class 2 obesity with body mass index (BMI) of 35.0 to 35.9 in adult, unspecified obesity type, unspecified whether serious comorbidity present Expected: 03/23/2023 (Approximate), Expires: 03/23/2024 [facility] Service Area Work Phone: Comment on above: Expected: 03/23/2023 (Approximate), Expi res: 03/23/2024 Start: 03-23-2023 End: 03-23-2024 Lipid 1996 panel - Serum or Plasma Lipid Panel Lab Routine Coronary artery disease involving [place] coronary artery of [place] heart without angina pectoris Essential hypertension Mixed hyperlipidemia Ischemic cardiomyopathy Status post coronary artery stent placement Class 2 obesity with body mass index (BMI) of 35.0 to 35.9 in adult, unspecified obesity type, unspecified whether serious comorbidity present Expected: 03/23/2023 (Approximate), Expires: 03/23/2024 [facility] Work Phone: Comment on above: Expected: 03/23/2023 (Approximate), Expi res: 03/23/2024 Start: 03-15-2023 FUV, Provider: Rene Cortez, Status: Pen, Time: 9:20 AM FUV, Provider: Rene Cortez, Status: Pen, Time: 9:20 AM [facility] [address] DO Work Phone: Start: 01-26-2023 COVID-19 Vaccine ( season) COVID-19 Vaccine ( season) [facility] Start: 01-26-2023 Influenza vaccination [facility] Start: 09-07-2022 FUV, Provider: Rene Cortez, Status: Pen, Time: 8:30 AM FUV, Provider: Rene Cortez, Status: Pen, Time: 8:30 AM [facility] [address] DO Work Phone: Start: 08-02-2022 Medicare Annual Wellness Visit Medicare Annual Wellness Visit (AWV) [facility] Start: 05-28-2022 ADVANCE DIRECTIVE DISCUSSION ADVANCE DIRECTIVE DISCUSSION [facility] Start: 05-28-2022 DEPRESSION ASSESSMENT DEPRESSION ASSESSMENT [facility] Start: 01-26-2022 Influenza vaccination INFLUENZA (#1) [facility] Start: 05-28-2021 ADVANCE DIRECTIVE DISCUSSION ADVANCE DIRECTIVE DISCUSSION [facility] Start: 05-28-2021 DEPRESSION ASSESSMENT DEPRESSION ASSESSMENT [facility] Start: 2018 Abdominal aortic aneurysm screening Abdominal Aortic Aneurysm (AAA) Screening [facility] Start: 2018 PNEUMOCOCCAL: 65+ (1 - PCV) PNEUMOCOCCAL: 65+ (1 - PCV) [facility] Start: 02-15-2017 Zoster Vaccines (2 of 3) Zoster Vaccines (2 of 3) [facility] Start: 2013 RSV High Risk: (Elderly (60+) or Population) (1 - Risk 60-74 years 1-dose series) RSV High Risk: (Elderly (60+) or Population) (1 - Risk 60-74 years 1-dose series) [facility] Start: 2013 RSV patients and/or patients aged 60+ years (1 - 1-dose 60+ series) RSV patients and/or patients aged 60+ years (1 - 1-dose 60+ series) [facility] Start: 2003 SHINGRIX VACCINE (1 of 2) SHINGRIX VACCINE (1 of 2) [facility] Start: 1998 COLOGUARD (FIT-DNA) COLOGUARD (FIT-DNA) [facility] Start: 1998 Colonoscopy COLONOSCOPY [facility] Start: 1998 COLORECTAL CANCER SCREENING COLORECTAL CANCER SCREENING [facility] Start: [address] COLONOGRAPHY [facility] Start: 1998 DIABETES SCREEN DIABETES SCREEN [facility] Start: 1998 FECAL OCCULT BLOOD FECAL OCCULT BLOOD [facility] Start: 1998 SIGMOIDOSCOPY SIGMOIDOSCOPY [facility] Start: 01-02-1988 LIPID SCREEN LIPID SCREEN [facility] Start: 01-02-1972 Urine microalbumin profile DTAP,TDAP,TD (1 - Tdap) [facility] Start: 1971 Diabetes mellitus screening Diabetes Screening [facility] Start: 1971 HEPATITIS C SCREENING HEPATITIS C SCREENING [facility] Start: 08-07-1971 Hepatitis C screening Hepatitis C Screening [facility] Start: 1953 COVID-19 VACCINE (#1) COVID-19 VACCINE (#1) [facility] Start: 1953 Creatinine measurement Creatinine Level [facility] Start: 1953 Lipid panel Lipid Panel [facility] Start: 1953 Medicare Annual Wellness Visit Medicare Annual Wellness Visit (AWV) [facility] Start: 1953 Potassium measurement Potassium Level [facility] Start: 1953 Screening for malignant neoplasm of colon [facility] Basic metabolic 1998 panel - Serum or Plasma Basic metabolic panel Lab Routine Hyponatremia Essential hypertension (CMS/HCC) Ordered: 02/27/2024 [facility] Comment on above: Ordered: 02/27/2024 BLOOD CULTURE 1 BLOOD CULTURE 1 Lab Routine 02/15/2024 4:07 PM EDT [facility] BLOOD CULTURE 1 BLOOD CULTURE 1 Lab Routine 02/17/2024 10:40 AM EDT [facility] BLOOD CULTURE 2 BLOOD CULTURE 2 Lab Routine 02/15/2024 4:14 PM EDT [facility] BLOOD CULTURE 2 BLOOD CULTURE 2 Lab Routine 02/17/2024 11:00 AM EDT [facility] LOWER RESPIRATORY CULTURE LOWER RESPIRATORY CULTURE Lab Routine 02/18/2024 7:25 AM EDT [facility] Work Phone: End: 07-21-2023 Mri brain brain stem w/o w/contrast material MRI BRAIN WO/W IVCON Radiology Routine Paralytic strabismus 1 Occurrences starting 06/21/2022 until 07/21/2023 [facility] Work Phone: Comment on above: 1 Occurrences starting 06/21/2022 until 07/21/2023 End: 07-21-2023 Mri orbit face & neck w/o & w/contrast matrl MRI SOFT TISSUE NECK WO/W IVCON Radiology Routine 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 until 07/21/2023 [facility] Work Phone: Comment on above: 1 Occurrences starting 06/21/2022 until 07/21/2023 Patient Education COPD Exacerbation, Adul t ED [facility] Work Phone: Patient referral [facility] Work Phone: PSA, total and free PSA, total a nd free Lab Routine Benign prostatic hyperplasia without urinary obstruction Ordered: 02/27/2024 [facility] Work Phone: Comment on above: Ordered: 02/27/2024 [facility] Immunizations Immunization Date Immunization Notes Care Provider Sharron baron 04-16-2019 Seasonal trivalent influenza vaccine, adjuvanted, preservative free Sera Flower Work Phone: [place] [address] DO Work Phone: 04-16-2019 influenza virus vacc ine, unspecified formulation Rene Cortez MD Work Phone: [facility] 03-28-2019 influenza virus vacc ine, unspecified formulation Sera Flower Work Phone: [place] [address] DO Work Phone: 08-16-2018 influenza virus vacc ine, unspecified formulation John BAPTISTE [facility] 08-16-2018 influenza, seasonal, injectable, preservative free Sera Flower Work Phone: [place] [address] DO Work Phone: 08-16-2018 pneumococcal conjuga te vaccine, 13 valent Sera Flower Work Phone: [place] [address] DO Work Phone: 05-28-2018 pneumococcal polysaccharide vaccine, 23 valent Sera Flower Work Phone: [place] [address] DO Work Phone: 08-10-2017 tetanus toxoid, redu daniel diphtheria toxoid, and acellular pertussis vaccine, adsorbed Sera Flower Work Phone: [place] [address] DO Work Phone: 12-21-2016 zoster vaccine, live Sera Flower Work Phone: [place] [address] DO Work Phone: 09-30-2012 pneumococcal polysaccharide vaccine, 23 valent Sera Flower Work Phone: [place] [address] DO Work Phone: 09-30-2012 pneumococcal vaccine , unspecified formulation Hosea Snyder DO Work Phone: [facility] 05-28-2010 influenza virus vacc ine, unspecified formulation Rene Cortez MD Work Phone: [facility] Work Phone: 03-28-2010 influenza, seasonal, injectable, preservative free Rene Cortez MD Work Phone: [facility] Work Phone: 2007 TD(adult) unspecifie d formulation; Translations: [Td(adult) unspecified formulation] Hosea Snyder DO Work Phone: [facility] influenza virus vacc ine, unspecified formulation Sera Flower Work Phone: [place] [address] DO Work Phone: Comment on above: Mar 20102010 Payers Date Payer Category Payer Private Health Insurance HUMANA HUMANA HMO/POS [id number] 2023-Present [address] [address] [place] [address] [id number] 2023 () [id number] 2023 Self-pay [id number] 2022 [employer] ( and others) [id number] 2022 Medicare (Managed Care) 1.2. [id number] 2022 For Life (TFL) F OR LIFE [id number] .[id number] 2022 [employer] ( and others) [id number] 2022 Medicare [id number] 2021 [employer] ( and others) [id number] 2021 Unknown 2017 Medicare [id number] 2017 Medicare [id number] 1953 Unknown [id number] 2.16.840.1.425306.3.579.2 .356 1953 Unknown [id number] 2.16.840.1.130776.3.579.2 .356 1953 Unknown [id number] 2.16.840.1.877931.3.579.2 .8 1953 Unknown [id number] 2.16.840.1.172564.3.579.2 .1068 1953 Unknown [id number] 2.16.840.1.587310.3.579.2 .727 1953 Unknown [id number] 2.16.840.1.038282.3.579.2 .727 1953 Unknown [id number] 2.16.840.1.305170.3.579.2 .727 1953 Unknown [id number] 2.16.840.1.637456.3.579.2 .727 1953 Unknown [id number] 2.16.840.1.269034.3.579.2 .1244 1953 Unknown [id number] 2.16.840.1.740694.3.579.2 .1244 1953 Unknown [id number] 2.16.840.1.147191.3.579.2 .7 1953 Unknown [id number] 2.840.1.066126.3.579.2 .72 1953 Unknown [id number] 2.16.840.1.634064.3.579.2 .727 1953 Unknown [id number] 2.840.1.185616.3.579.2 .727 1953 Unknown [id number] 2.16.840.1.971496.3.579.2 .727 1953 Unknown [id number] 2.840.1.119545.3.579.2 .727 1953 Unknown [id number] 2.16.840.1.124003.3.579.2 .1259 1953 Unknown [id number] 2.16.840.1.704146.3.579.2 .1259 1953 Unknown [id number] 2.16.840.1.676154.3.579.2 .1259 1953 Unknown [id number] 2.16840.1.557718.3.579.2 .1259 1953 Unknown [id number] 2.16.840.1.936330.3.579.2 .9 1953 Unknown [id number] 2.16.840.1.153581.3.579.2 .9 1953 Unknown [id number] 2.16.840.1.425960.3.579.2 .1259 [employer] ( and others) [id number] Unknown [id number] 2.16.840.1.449971.3.579.2 .531 Unknown [id number] 2.16.840.1.374864.3.579.2 .531 Social History Date Type Detail Facility Start: 03-23-2023 End: 09-24-2024 No alcohol use No alcohol use [facility] Comment on above: 5 CUPS OF COFFEE ANICETO LY; QUIT IN 1984; Start: 05-01-2022 End: 06-14-2023 Tobacco smoking status [facility] Never smoked tobacco [facility] Start: 05-01-2022 End: 10-18-2023 Tobacco use and exposure Smokeless tobacco non-user [facility] Start: 05-01-2022 End: 11-14-2022 Alcohol intake Ex-drinker (finding) [facility] Start: 1955 Sex Assigned At Not on file [facility] Start: 10-15-2020 End: 02-27-2024 Tobacco smoking status KYIS Ex-smoker (finding) [facility] Start: 1955 Sex Assigned At Male [facility] End: 05-28-1992 History of tobacco use Current smoker [facility] Work Phone: End: 05-28-1992 History of tobacco use Cigarette Smoker [facility] Work Phone: Start: 03-23-2023 End: 09-24-2024 Alcohol intake Lifetime non-drinker (finding) [facility] Work Phone: Start: 03-23-2023 End: 09-24-2024 Tobacco use panel [facility] Start: 03-13-2023 End: 05-15-2024 Exposure to SARS-CoV-2 (event) Not sure [facility] Start: 03-14-2023 Alcohol Comment caffeine: coff ee 5-6 cups a day [facility] Start: 11-13-2022 Gender identity Identifies as male gender (finding) [facility] Tobacco smoking status Never [facility] Functional Status Date Assessment Result Facility 09-24-2024 Patient Health Quest ionnaire 2 item (PHQ-2) [Reported] [facility] 08-08-2024 Functional Status N/A [facility] 06-23-2024 Functional Status N/A [facility] 04-28-2024 Functional Status N/A [facility] 04-16-2024 Functional Status N/A [facility] Clinical Notes 05-01-2022 to 09-24-2024 Sally Ba NP - 09/24/2024 1:30 PM EDT Note Date & Type Note Facility 09-24-2024 History of Present illness Narrative Images from the original note were not included. Demarcus Calderon is a 69 y.o. male presents with chief complaint of 6 Month Follow Up of Chronic Conditions, Medicare Annual Wellness Visit Subsequent, and ER Follow-up ([facility] 09/22/2024 for CHF. He was advised to [...] under the care of Dr. Morgan, a pants maker, and has resumed his diuretic regimen. - [...] incident. Prediabetes Monitoring Blood work at the [place] is scheduled for 10/10/2024. He is not currently on any antidiabetic medications and is monitored for prediabetes, with an A1c of 6.3 in 2023. - Timing: Blood work scheduled for 10/10/2024 for the [place]. - Severity: A1c of 6.3 in 2023. PSA Levels Monitoring Dr. Baptiste, a urologist, is monitoring his prostate-specific antigen (PSA) levels, which improved from 6.0 to 2.3 between last year and 03/2024. - Timing: PSA levels improved between last year and 03/2024. - Severity: PSA levels improved from 6.0 to 2.3. Colonoscopy Referral A referral for a colonoscopy at [facility] has been declined, opting to defer the procedure for a year. Medical History and Vaccinations There is no history of chickenpox, but he has had mumps and measles. The shingles vaccine was administered in 2016. Living Will and Power of Health Care Aide A living will and power of mergers and acquisitions attorney are in place. Resuscitation efforts are [...] Yes Vision Screening: Yes, patient sees regular agricultural technician/mobile phlebotomist Cognitive Screening Self Assessment: No overt cognitive deficiency is apparent by direct observation Three Word Registration: Banana, [place], Chair Clock Drawing: Normal Clock - 2 Three Word Recall: 2/3 words correct - 2 Total Score (0-5 Points): 4 Pain Assessment Pain Score: 0 - No pain HISTORIES: PAST MEDICAL HISTORY: Past Medical History: Diagnosis Date Asthma BPH (benign prostatic hyperplasia) CAD (coronary artery disease) ([facility]) COPD (chronic obstructive pulmonary disease) ([facility]) Emphysema, unspecified Hypercholesterolemia ([facility]) Hypertensive heart disease SURGICAL HISTORY: Past Surgical [...] 50 MCG/ACT nasal spray 2 sprays, Daily Adacawpbpnh-Liqazokyc-Mojurk (Trelegy Ellipta) 100-62.5-25 MCG/ACT aerosol powder 1 [...] with eag 5. Coronary artery disease involving [place] coronary artery of [place] heart without angina pectoris (CMS/HCC) Doing well. [...] the above issues. documented in this encounter [facility] 08-26-2024 Note Patient Education Urology Benign [...] Follow these instructions at home: ??? Take lyyh-cwb-uyerhbu and prescription medicines only as told by [...] do not get (more content not included)... [facility] 08-18-2024 Note Patient Education Urology Benign [...] Follow these instructions at home: ??? Take ocvc-bdx-afhaspz and prescription medicines only as told by [...] do not get (more content not included)... [facility] 08-08-2024 Hospital Discharge instructions Patient Education [...] Up Care 06/23/2024 15:57:15 With:John BAPTISTE Address: [address] [place] [address]- Business (1) When: Unknown Comments:Push the fluids to keep the urine clear. Stay on the Flomax for now.Some discharge instructions have been provided. If the bleeding gets severe, or the catheter is clogging from blood clots, you need to go to the ER for irrigation.Will make a one week appt. to remove the catheter. [facility] 08-08-2024 Note Patient Education Urolift ??? [...] seek help from a hospital emergency room. [facility] 08-08-2024 Evaluation + Plan note Extrac zakiya from: Title:EU UroLift 8 Implants- FT Author:John BAPTISTE MD Date:08/08/24 Patient: DEMARCUS CALDERON Age: 69 years Sex: Male : 1955 Associated Diagnoses: None Author: John BAPTISTE MD Procedure Operative Information Details: Date/ Time: 08/08/2024 13:41:00. Pre-Op Dx: Acute urinary retention ([id number] R33.8, Working, Medical), BPH with obstruction/lower urinary tract symptoms (QCW15-[place] N40.1, Working, Medical). Post-Op Dx: Same. Anesthesia [...] procedure (10 mg diazepam, 5/325 mg of Wood[place]), Local Anesthesia (60cc 2% Xylocaine liquid inserted [...] Appointments Appointment Date:08/13/2024 12:00:00 PM Scheduled Provider: Location:[facility] Appointment Type:Urology CALL PAT Appointment Date:08/15/2024 08:00:00 AM Scheduled Provider: [facility] [place] Appointment Type:URO Nurse Visit [facility] 02-20-2025 History of Present illness Narrative* [...] Erythema intertrigo Pubic, Right Foot - Anterior [place] moist plaques. Flaring today Discussed that intertrigo is a chronic condition that can be controlled but not cured. Recommend keeping areas as dry as possible to avoid flares. Start Nystatin powder every day. Start HC 2.5% creamevery day prn itching, hold if not itchy. Notify office if worsening despite treatment. nystatin (Mycostatin) 192869 UNIT/GM powder - Pubic Apply to the affected area on groin area, once daily, 30 day supply hydrocortisone 2.5 % cream - Pubic Apply thin layer to affected areas on groin up once or twice daily prn itching. Hold if not itchy. Next Visit: 3-4 weeks if not improving [facility] [id number] History of Present illness Narrative* Sally Ba, UNIX ARCHITECT - 07/02/2024 9:15 AM EST Images from the original note were not included. Demarcus Calderon is a 69 y.o. male presents with chief complaint of ER Follow-up ([facility] 06/29/2024 dx: COPD exacerbation 2ndry [...] Flowsheet Row Patient Outreach from 06/30/2024 in [facility] with Orquidea Shah RN Hospital Information ED, Hospital or Snf Facility Discharge? ED Patient has been contacted within 1 week of being seen in the ED Yes Diagnosis COPD exacerbation secondary to viral infection Discharge Date 06/29/24 Discharged To: Home Setting Discharge Hospital -- [[facility]] Engagement Admission Date 06/29/24 Medications Discharge medications [...] Wrap Up Additional Comments Patient present to [place] [facility] with a productive cough and runny [...] 50 MCG/ACT nasal spray 2 sprays, Daily Ndvqwomekta-Xiibkgidq-Qrcirr (Trelegy Ellipta) 100-62.5-25 MCG/ACT aerosol powder 1 [...] a topical cream will be sent to [facility] pharmacy. Follow up if not resolving. - [...] referral to Dermatology; Future documented in this encounterTwo [facility] [id number] Hospital Discharge instructions Patient Education 06/23/2024 15:40:46 [...] including vitamins, herbs, eye drops, creams, and tckc-xdg-eutodrv medicines. Any problems you or family members [...] provider tells you to take them. Taking ihkx-xqp-yljtyho medicines, vitamins, herbs, and supplements. Surgery safety [...] provider. Document Revised: 12/09/2021 Document Reviewed: 12/09/2021 Focus IP Patient Education 2023 [employer]. Follow Up Care 04/28/2024 12:25:17 With:BENNY SHELLEY, John Hauser, URL Address: [facility] [address] [place] [address]- When: Unknown [facility] [place] 01-27-2025 NotePatient Education Urology Prostatic Urethral Lift [...] including vitamins, herbs, eye drops, creams, and btha-ggc-fukwjav medicines. ??? Any problems you or family [...] tells you to take them. ??? Taking wyew-ggx-ksqkqry medicines, vitamins, herbs, and supplements. Surgery safety [...] procedure to relieve symptoms (more content not included)...[facility]12-19-2024 History of Present illness Narrative* Rene [...] , Rfl: omega-3 fatty acids-fish oil (One-Per-Day Belva-3) 684-1,200 mg capsule, Take as directed, Disp: [...] 11 Assessment/Plan 1. Coronary artery disease involving [place] coronary artery of [place] heart without angina pectorisFollow Up In Cardiology [...] exam, discussion and plan. [facility] Work Phone: 1(350) 852-473712-19-2024 Instructions* Patient Instructions* Ana Cunningham LPN - [...] on exercise. Follow up [facility] Work Phone: [phone]) 366-131312-11-2024 History of Present illness Narrative* Jessica Busby NP - 05/07/2024 5:15 PM EST Images from the original note were not included. [address] , [address] [facility], [address] P: [phone] F: [phone] HPI Historian of HPI: patient Demarcus Calderon [...] PE. IH Testing: Pt was admitted to [facility] for pneumonia in January of 2024. [...] with exam. TREATMENT PLAN documented in this [facility]12-11-2024 Instructions* Patient Instructions* Jessica Busby NP - 05/07/2024 5:15 PM EST Cover for otitis. Finish all doses of antibiotic Push fluids, may continue with OTC Meds for sy mptom relief COPD Is stable, saw pulmonology today documented in this [facility]12-02-2024 Hospital Discharge instructions Patient Education 04/28/2024 12:02:30 [...] (electrical nerve stimulation). ?For women, using a senior medical technologist to prevent urine leaks. This is [...] right after experiencing incontinence. General instructions Take iray-oti-cdnyhfr and prescription medicines only as told by [...] important. Where to find more information National Murphy of Diabetes and Digestive and Kidney Diseases: www.niddk.nih.gov [place] [employer] Association: www.urologyhealth.org Contact a health care [...] provider. Document Revised: 12/17/2020 Document Reviewed: 12/17/2020 Focus IP Patient Education 2023 [employer]. 04/28/2024 12:02:20 Acute Urinary Retention, Male Acute [...] Follow these instructions at home: Medicines Take zuel-rvm-jhktkhv and prescription medicines only as told by [...] provider. Document Revised: 02/02/2021 Document Reviewed: 02/02/2021 Focus IP Patient Education 2023 [employer]. 04/28/2024 12:02:13 Prostate Cancer Screening Prostate Cancer [...] treatment? Where to find more information The [place] [employer] Society: www.cancer.org [place] Urological Association: www.auanet.org Contact a health care [...] provider. Document Revised: 11/07/2021 Document Reviewed: 11/07/2021 Focus IP Patient Education 2023 [employer]. Follow Up Care 04/16/2024 11:10:33 With:SU COOK PA-C, URL Address: [address] [address] When: Unknown [facility] [place] [id number] NotePatient Education Oncology Prostate Cancer Screening Prostate [...] Where to find more information ??? The [place] Cancer Society: www.cancer.org ??? [place] Urological Association: www.auanet.org Contact a health care [...] men. The prostate gland (more content not included)...[facility]11-20-2024 NoteUrology Office/Clinic Note Chief Complaint new [...] When Contact Information SU COOK PA-C, URL [address] [place] [place] [address] Additional Instructions: f/u in 2 weeks w/ PSA and PVR Patient Education Acute Urinary Retention, Male Benign Prostatic Hyperplasia Prostatitis Problem List/Past Medical History Ongoing Chronic systolic congestive heart f (more content not included)...[facility]:Result Comment: Electronically Signed By: SU COOK PA-C\.br\Date and Time Signed: 04/16/2414:04 EST\.br\Electronically Co-Signed By: Tatiana Dyson PA-C\.br\Date and Time Co-Signed: 04/16/2413:22 EST\.br\Electronically Co-Signed By: Tatiana Dyson PA-C\.br\Date and Time Co- Signed: 04/16/2413:24 [id number] Hospital Discharge instructions Patient Education 04/16/2024 11:46:12 [...] Follow these instructions at home: Medicines Take unud-iav-fqwlbob and prescription medicines only as told by [...] provider. Document Revised: 02/02/2021 Document Reviewed: 02/02/2021 Focus IP Patient Education 2023 [employer]. 04/16/2024 11:46:02 Benign Prostatic Hyperplasia Benign Prostatic [...] urethra. Follow these instructions at home: Take huzi-cpp-voxjkfl and prescription medicines only as told by [...] provider. Document Revised: 11/30/2021 Document Reviewed: 11/30/2021 Focus IP Patient Education 2023 [employer]. 04/16/2024 11:46:00 Prostatitis Prostatitis Prostatitis is swelling [...] Follow these instructions at home: Medicines Take dmil-ujy-dvjgqcq and prescription medicines only as told by [...] important. Where to find more information National Murphy of Diabetes and Digestive and Kidney Diseases: [...] depends on the type of prostatitis. Take upoi-bum-lcelroj and prescription medicines only as told by [...] provider. Document Revised: 03/29/2023 Document Reviewed: 03/29/2023 Focus IP Patient Education 2023 [employer]. Follow Up Care 03/06/2024 09:43:54 With:ADRIÁN DELACRUZ, SU Esquivel, URL Address: [facility] [address] [facility] [address] When: Unknown Comments:f/u in 2 weeks w/ PSA and PVR [facility] [place] [id number] NotePatient Education Infectious Disease Prostatitis Prostatitis is [...] these instructions at home: Medicines ??? Take dnpp-rzj-ncutwfc and prescription medicines only as told by [...] provider. This is important. (more content not included)...[facility]10-30-2024 History of Present illness Narrative* Sera [...] 50 MCG/ACT nasal spray 2 sprays, Daily Wwtyhoeqpkr-Ngypyypmh-Qztbbm (Trelegy Ellipta) 100-62.5-25 MCG/ACT aerosol powder 1 [...] or concerns. 3. Coronary artery disease involving [place] coronary artery of [place] heart without angina pectoris(CMS/HCC) Doing well. Denies [...] evaluation may be necessary. documented in this encounterTwo Rivers Psychiatric [id number] History of Present illness Narrative* Sally Ba NP - 02/27/2024 10:45 AM EDT Images from the original note were not included. Demarcus Calderon is a 69 y.o. male presents with chief complaint of Hospital Follow-up ([facility] dx: sepsis, COPD, pneumonia) HPI: Patient presented to [facility] ER with complaints of shortness of breath, productive cough and wheezing. CXR showed right lower lobe and middle lobe pneumonia. He was prescribed Prednisone and Cefdinir. He reports to be feeling much better. He does have follow-up scheduled with Dr. Morgan, typesetting supervisor, in April. History of Present Illness The [...] Flowsheet Row Patient Outreach from 02/21/2024 in [facility] [place] with Tootie Jacobson RN Hospital Information Diagnosis Pneumonia, HTN, CHF, Benign prostate hyperplasia without urinary symptoms. Discharged To: Home Setting Discharge Hospital [facility] Engagement Admission Date 02/17/24 Medications Discharge medications [...] History: Diagnosis Date Asthma ([facility]) BPH (benign prostatic hyperplasia) CAD (coronary artery disease) ([facility]) COPD (chronic obstructive pulmonary disease) ([facility]) Emphysema, unspecified ([facility]) Hypercholesterolemia ([facility]) Hypertensive heart disease ([facility]) SURGICAL HISTORY: Past Surgical History: Procedure Laterality [...] nasal spray 2 sprays, Each Nostril, Daily Qrdoscsdyke-Vntsuvtdy-Xnewwy (Trelegy Ellipta) 100-62.5-25 MCG/ACT aerosol powder 1 [...] - Basic metabolic panel 4. Essential hypertension ([facility]/HCC) Doing well. Blood pressures have been good. Continue lifestyle modifications. Continue current medication. Call if any problems or if home blood pressures rising. - Basic metabolic panel 5. Chronic systolic congestive heart failure ([facility]/HCC) It was felt pt had volume overload due to IVF. He is using Lasix intermittently. Denies problems with SOB, COYNE, or increased edema with weight gain. Continue current medication regimen. Eat a heart healthy diet low in sodium. Monitor weights regularly and call if increased more than 5 pounds. Call immediately if any problems or concerns. 6. Coronary artery disease involving [place] coronary artery of [place] heart without angina pectoris([facility]) Doing well. Denies any anginal symptoms. Continue aggressive risk factor modification. Continue current medications. Call if any problems. 7. Gastroesophageal reflux disease without esophagitis Stable. Continue current regimen. 8. Benign prostatic hyperplasia without urinary obstruction Stable. Continue current regimen. - PSA, total and free documented in this encounterTwo Rivers Psychiatric [id number] Note Gram Stain Evaluation This specimen is of good quality and is acceptable for routine [facility] [id number] NoteGRAM STAIN EVALUATIONbacterial culture.[facility] [id number] History of Present illness Narrative* Rene Cortez [...] and he continues to follow with the [place]. [facility] [...] emphasis on low-calorie diet Rene Cortez MD, [facility] Review of Systems All other systems [...] , Rfl: omega-3 fatty acids-fish oil (One-Per-Day Belva-3) 684-1,200 mg capsule, Take as directed, Disp: [...] 3 Assessment/Plan 1. Coronary artery disease involving [place] coronary artery of [place] heart without angina pectorisFollow Up In Cardiology [...] exam, discussion and plan. documented in this [facility] Work Phone: 1(854) 576-434005-23-2024 Instructions* Patient Instructions* Ana Cunningham LPN - [...] Follow up 6 months documented in this [facility] Work Phone: 1(851) 175-152502-03-2024 History of Present illness Narrative* Hosea Snyder, [...] day x 3 days documented in this encounterTwo Rivers Psychiatric [id number] History of Present illness Narrative* Rene Cortez [...] emphasis on low-calorie diet Rene Cortez MD, [facility] Review of Systems All other systems [...] , Rfl: omega-3 fatty acids-fish oil (One-Per-Day Belva-3) 684-1,200 mg capsule, Take as directed, Disp: [...] Rfl: Assessment/Plan 1. Coronary artery disease involving [place] coronary artery of [place] heart without angina pectorisFollow Up In Cardiology [...] Aspartate Aminotransferase Alanine Aminotransferase [facility] Work Phone: 1(695) 826-583810-27-2023 Instructions* Patient Instructions* Millie Hoffmann CMA - [...] time of your visit. documented in this encounterUC [facility] Center Work Phone: 1(586) 728-473106-20-2023 NoteHNO ID: [id number] Author: Deandra Bender MD Service: ? Author [...] or facial palsy H/o Botox injections in [place]-->didn't help No h/o trauma H/o sinus surgery [...] can I get the FL-41 filter? Any [facility] location, (with an optical shop), throughout [place], Email: [email or web address] [employer] in [place], [place], [facility] [facility] in [place], [place], [facility] in [place], [place], [employer] [facility] in [place], [place], [email or web address] F/u Botulinum toxin 3 months, Botulinum toxin [...] Deandra Bender MD, November 14, 2022 10:00 AM.[facility]06-20-2023 History of Present illness Narrative* Deandra Bender MD - 11/14/2022 10:00 AM EDT Here for botox Right eye just started twitching Tears as needed. -rofPatient still having twitching right eye and occasionally the left. Refresh tears four times a day. -rof A/P: Right hemifacial spasm x 2 years Patient doesn't remember h/o bells or facial palsy H/o Botox injections in [place]-->didn't help No h/o trauma H/o sinus surgery [...] can I get the FL-41 filter? Any [facility] location, (with an optical shop), throughout [place], Email: [email or web address] [employer] in [place], [place], [facility] in [place], [place], [facility] in [place], [place], [facility] in [place], [place], [phone] [email or web address] F/u Botulinum toxin 3 months, Botulinum toxin [...] 14, 2022 10:00 AM. documented in this encounterK[facility]03-14-2023 NoteHNO ID: [id number] Author: Deandra Bender MD Service: ? Author Type: Physician Type: Progress Notes Filed: 08/08/2022 3:09 PM Note Text: Patient still having twitching right eye and occasionally the left. Refresh tears four times a day. -rof A/P: Right hemifacial spasm x 2 years Patient doesn't remember h/o bells or facial palsy H/o Botox injections in [place]-->didn't help No h/o trauma H/o sinus surgery [...] Deandra Bender MD, August 08, 2022 3:05 PM.[facility]03-14-2023 History of Present illness Narrative* Deandra Bender MD - 08/08/2022 3:45 PM EDT Patient still having twitching right eye and occasionally the left. Refresh tears four times a day. -rof A/P: Right hemifacial spasm x 2 years Patient doesn't remember h/o bells or facial palsy H/o Botox injections in [place]-->didn't help No h/o trauma H/o sinus surgery [...] 08, 2022 3:05 PM. documented in this encounterK[facility]tering [facility]03-14-2023 Instructions* Patient Instructions* Deandra Bender MD - [...] Photodocumentation Recheck next visit documented in this encounterKettering [facility]01-25-2023 Miscellaneous Notes* Telephone Encounter - Orquidea Ryan Perea - 06/21/2022 2:03 PM EST Notes and MRI orders faxed to [facility]. * Telephone Encounter - Delores Mccollum - 06/21/2022 12:50 PM EST [facility] called today. : 1955 Allergies: Codeine, Codeine-Guaifenesin, and Guaifenesin (home) [phone] (cell) Reason for call: Sasha F:[phone] Asking for the MRI orders and office notes to be faxed over to [facility]. Patient will be having them done there. Patient last appointment: Visit date not found The patients preferred pharmacy has been captured for this encounter? not asked Delores Mccollum documented in this encounterKettering [facility]01-25-2023 NoteHNO ID: [id number] Author: Deandra Bender MD Service: ? Author Type: Physician Type: Progress Notes Filed: 06/21/2022 9:08 AM Note Text: Twitching right eye x two years. Both upper and lower lid. Trouble reading because of it. +tearing and burning. Refresh four times a day. -rof A/P: Right hemifacial spasm x 2 years Patient doesn't remember h/o bells or facial palsy H/o Botox injections in [place]-->didn't help No h/o trauma H/o sinus surgery [...] Deandra Bender MD, June 21, 2022 9:05 AM.[facility]01-25-2023 Instructions* Patient Instructions* Deandra Bender MD - [...] toxin and get MRI documented in this encounterKettering [facility]01-25-2023 History of Present illness Narrative* Deandra Bender MD - 06/21/2022 9:00 AM EST Twitching right eye x two years. Both upper and lower lid. Trouble reading because of it. +tearing and burning. Refresh four times a day. -rof A/P: Right hemifacial spasm x 2 years Patient doesn't remember h/o bells or facial palsy H/o Botox injections in [place]-->didn't help No h/o trauma H/o sinus surgery [...] 21, 2022 9:05 AM. documented in this encounterK[facility]tering [facility]12-05-2022 NoteHNO ID: [id number] Author: Mau Randle OD Service: ? Author Type: DIRECTOR OF TESTING Type: Progress Notes Filed: 05/01/2022 9:22 AM [...] all of its relevant components. Mau Randle, LATASHARegency [facility]12-05-2022 History of Present illness Narrative* Mau Randle [...] components. Mau Randle OD documented in this encounterKettering [facility] TownshipEvaluation + Plan note Future Appointments Appointment Date:04/25/2024 08:30:00 AM Scheduled Provider: Location:[facility] Appointment Type:URO Nurse Visit Appointment Date:04/28/2024 11:20:00 AM Scheduled Provider:SU COOK PA-C Location:[facility] Appointment Type:URO Office Visit [facility] Evaluation + Plan note Future Appointments Appointment Date:04/28/2024 11:20:00 AM Scheduled Provider:SU OCOK PA-C [facility]O Office Visit [facility] Evaluation + Plan note Future Appointments Appointment Date:06/23/2024 03:00:00 PM Scheduled Provider:John BAPTISTE MD Location:[facility] Appointment Type:URO Procedure 15 min [facility] [place] Evaluation + Plan note Future Appointments Appointment Date:08/13/2024 12:00:00 PM Scheduled Provider: Location:[facility] Appointment Type:Urology CALL PAT FT Appointment Date:08/14/2024 01:30:00 PM Scheduled Provider: Location:[facility] Appointment Type:Urology FT [facility] Evaluation note* Diagnosis Eyelid myokymia- Primary Other facial nerve disorders Dry eye syndrome of both eyes Hyperopia of both eyes with astigmatism and presbyopia documented in this encounter [facility]* Diagnosis Clonic hemifacial spasm, right- Primary Paralytic strabismus Paralytic strabismus, 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 [facility] Work Phone: Evaluation note* Diagnosis Coronary artery disease involving [place] coronary artery of [place] heart without angina pectoris Essential hypertension Unspecified essential hypertension Mixed hyperlipidemia Ischemic cardiomyopathy Other specified forms of chronic ischemic heart disease Status post coronary artery stent placement Postsurgical percutaneous transluminal coronary angioplasty status Class 2 obesity with body mass index (BMI) of 35.0 to 35.9 in adult, unspecified obesity type, unspecified whether serious comorbidity present documented in this encounter [facility] Work Phone: Evaluation note* Diagnosis Acute exacerbation of chronic obstructive pulmonary disease (CMS/HCC)- Primary Obstructive chronic bronchitis with exacerbation documented in this encounter [facility] HospitalEval[facility]* Diagnosis Coronary artery disease involving [place] coronary artery of [place] heart without angina pectoris- Primary Essential hypertension [...] hazards to health documented in this encounter [facility] Work Phone: Evaluation note* Diagnosis Sepsis, due to unspecified organism, unspecified whether acute organ dysfunction present ([facility])- Primary Pneumonia of right middle lobe due to infectious organism Hyponatremia Hyposmolality and/or hyponatremia Essential hypertension ([facility]) Unspecified essential hypertension Chronic systolic congestive heart failure ([facility]) Coronary artery disease involving [place] coronary artery of [place] heart without angina pectoris ([facility]) Gastroesophageal reflux disease without esophagitis Esophageal reflux Benign prostatic hyperplasia without urinary obstruction [facility]* Diagnosis Essential hypertension ([facility]/HCC)- Primary Unspecified essential hypertension Chronic systolic congestive heart failure ([facility]/HCC) Coronary artery disease involving [place] coronary artery of [place] heart without angina pectoris ([facility]) Chronic obstructive pulmonary disease, unspecified COPD type ([facility]) Pure hypercholesterolemia ([facility]) Pure hypercholesterolemia Prediabetes Other abnormal glucose Elevated PSA Elevated prostate specific antigen (PSA) Benign prostatic hyperplasia without urinary obstruction Bacterial pneumonia Unspecified bacterial pneumonia Sinus drainage Other diseases of nasal cavity and sinuses documented in this encounter [facility]* Diagnosis Non-recurrent acute serous otitis media of right ear- Primary documented in this encounter [facility]* Diagnosis Coronary artery disease involving [place] coronary artery of [place] heart without angina pectoris- Primary Essential hypertension Unspecified essential hypertension Ischemic cardiomyopathy Other specified forms of chronic ischemic heart disease Mixed hyperlipidemia Status post coronary artery stent placement Postsurgical percutaneous transluminal coronary angioplasty status Former smoker Personal history of tobacco use, presenting hazards to health BMI 36.0-36.9,adult Class 2 obesity documented in this encounter [facility] Work Phone: Evaluation note* Diagnosis Chronic obstructive pulmonary disease, unspecified COPD type ([facility]/HCC)- Primary Bronchiectasis without complication ([facility]) Rash Rash and other nonspecific skin eruption [...] hypertension (CMS/HCC) Unspecified essential hypertension Pure hypercholesterolemia ([facility]/HCC) Pure hypercholesterolemia Chronic systolic (congestive) heart failure Prediabetes Other abnormal glucose Coronary artery disease involving [place] coronary artery of [place] heart without angina pectoris ([facility]/HCC) Severe persistent asthma, uncomplicated (CMS/HCC) Elevated PSA Elevated prostate specific antigen (PSA) BMI 36.0-36.9,adult Morbid (severe) obesity due to excess calories ([facility]) Medicare annual wellness visit, subsequent ACP (advance care planning) Other specified counseling documented in this encounter [facility] Narrative No data available for this section [facility] Hospital Discharge instructions Additional Instructions If your symptoms return/worsen or you develop any further concerns or symptoms please see your doctor or return to the emergency department immediately.[facility] Work Phone: Hospital Discharge instructions No data available for this section [facility] Progress note No data available for this section [facility] Reason for referral (narrative)* Consultation (Routine) - Authorized Specialty Diagnoses / Procedures Referred By Bryon hernandez Referred To Contact Cardiology Diagnoses Coronary artery disease involving [place] coronary artery of [place] heart without angina pectoris Essential hypertension Mixed hyperlipidemia Ischemic cardiomyopathy Status post coronary artery stent placement Class 2 obesity with body mass index (BMI) of 35.0 to 35.9 in adult, unspecified obesity type, unspecified whether serious comorbidity present Procedures Follow Up In Cardiology Rene Cortez MD [address] [facility], [address] [address] Rene Cortez MD [address] [place] [address] Referral ID Status Reason Start Date Expiration Date V isits Requested Visits Authorized [id number] Authorized 03/23/2023 03/22/2024 1 1 [facility] Work Phone: Reason for referral (narrative)* Consultation (Routine) - Authorized Specialty Diagnoses / Procedures Referred By Bryon hernandez Referred To Contact Cardiology Diagnoses Coronary artery disease involving [place] coronary artery of [place] heart without angina pectoris Procedures Follow Up In Cardiology Rene Cortez MD [address] [facility] [place] [address] Rene Cortez MD [address] [facility] [place] [address] Referral ID Status Reason Start Date Expiration Date V isits Requested Visits Authorized [id number] Authorized 10/18/2023 10/17/2024 1 1 [facility] Work Phone: Chief Complaint * DEMARCUS CALDERON [...] infarction with no ischemia. EF in the [id number]. He remains compensated as for ischemic cardiomyopathy. [...] on low-calorie diet * Rene Cortez MD, [facility] * DEMARCUS CALDERON is being seen [...] on low-calorie diet * Rene Cortez MD, [facility] Family History No [...] W/O & W/CONTRAST MATRL Deandra Bender MD [address] [place] [address] Mr Imaging Referral ID Status Reason Start Date Expiration Date Visits Requested Visits Authorized [id number] Pending Review Auto-Generat ed Referral 06/21/2022 07/21/2023 1 1 Specialty Diagnoses / Procedures Referred By Bryon hernandez Referred To Contact MR IMAGING Diagnoses Paralytic strabismus Procedures MRI BRAIN WO/W IVCON MRI BRAIN BRAIN STEM W/O W/CONTRAST MATERIAL Deandra Bender MD [address] [place] [address] Mr Imaging Referral ID Status Reason Start Date Expiration Date Visits Requested Visits Authorized [id number] Pending Review Auto-Generat ed Referral 06/21/2022 07/21/2023 [...] or prosecute any alcohol or drug abuse patient.[facility] the event this information is protected by the Federal Confidentiality of Alcohol and Drug Abuse Patient Records regulations: The Federal rules restrict any use of the information to criminally investigate or prosecute any alcohol or drug abuse patient.[facility] the event this information is protected by the Federal Confidentiality of Alcohol and Drug Abuse Patient Records regulations: The Federal rules restrict any use of the information to criminally investigate or prosecute any alcohol or drug abuse patient.[facility] the event this information is protected by the Federal Confidentiality of Alcohol and Drug Abuse Patient Records regulations: The Federal rules restrict any use of the information to criminally investigate or prosecute any alcohol or drug abuse patient.[facility] the event this information is protected by the Federal Confidentiality of Alcohol and Drug Abuse Patient Records regulations: The Federal rules restrict any use of the information to criminally investigate or prosecute any alcohol or drug abuse patient.[facility] Reason for Visit (unrecogniz ed section and [...] up to 100 units Procedures BOTOX EI [id number] [place] [address] [place] [address] Deandra Bender MD [address] [place] [address] Referral ID Status Reason Start Date Expiration Date V isits Requested Visits Authorized [id number] Authorized 11/14/2022 05/27/2023 99 99 Reason Comments Follow-up 6 months Reason Comments Follow-up 6m Specialty Diagnoses / Procedures Referred By Bryon t Referred To Contact Cardiology Diagnoses Coronary artery disease involving [place] coronary artery of [place] heart without angina pectoris Essential hypertension Mixed hyperlipidemia Ischemic cardiomyopathy Status post coronary artery stent placement Class 2 obesity with body mass index (BMI) of 35.0 to 35.9 in adult, unspecified obesity type, unspecified whether serious comorbidity present Procedures Follow Up In Cardiology Rene Cortez MD [address] [place] [address] [address], [address] [address] Rene Cortez MD [address] [place] [address] [address], [address] [address] Referral ID Status Reason Start Date Expiration Date V isits Requested Visits Authorized [id number] Authorized 03/23/2023 03/22/2024 1 1 Reason Comments Hospital Follow-up [facility] dx: sepsis, COPD, pneumonia Reason Comments 6 Month Follow-up Lab drawn 02/27/2024 . Cough Productive cough con tinues with yellow sputum. Occasional shortness of breath. CXR ordered on 02/26 to repeat in 8 weeks Reason Comments Earache Reason Comments Follow-up 6 month Specialty Diagnoses / Procedures Referred By Bryon hernandez Referred To Contact Cardiology Diagnoses Coronary artery disease involving [place] coronary artery of [place] heart without angina pectoris Procedures Follow Up In Cardiology Rene Cortez MD [address] [place] [address] [address], [address] [address] Phone: tel: fax: Rene Cortez MD [address] [place] [address] [address], [address] [address] Phone: tel: fax: Referral ID Status Reason Start Date Expiration Date V NetDocumentsts Requested Visits Authorized [id number] Authorized 10/18/2023 10/17/2024 1 1 Reason Comments ER Follow-up [facility] 06/29/2024 dx: COPD exacerbation 2ndry [...] Skin lesion of back Sebaceous cyst Procedures CA OFFICE/OUTPATIENT NEW HIGH MDM 60 MINUTES Sally Ba NP [address] [place] [address] Phone: tel: fax: Marybeth Long MD [address] [place] [address] Phone: tel: fax: Referral ID Status Reason Start Date Expiration Date V isits Requested Visits Authorized [id number] Closed Consult and Treat 07/02/2024 12/29/2024 1 1 Reason Comments 6 Month Follow Up of Chronic Conditions Medicare Annual Wellness Visit Mary hernandez ER Follow-up [facility] for CHF. He was advised to resume [...] section and content) DATE CREATED AUTHOR 07/16/2022 [facility] dical Specialist DATE CREATED AUTHOR AUTHOR'S ORGANIZ ATION 09/09/2022 [email or web address] DATE CREATED AUTHOR AUTHOR'S ORGANIZ ATION 11/14/2022 [facility] DATE CREATED AUTHOR AUTHOR'S ORGANIZ ATION 02/12/2023 [facility] DATE CREATED AUTHOR AUTHOR'S ORGANIZ ATION 02/28/2023 [facility] DATE CREATED AUTHOR AUTHOR'S ORGANIZ ATION 06/25/2023 [facility] DATE CREATED AUTHOR AUTHOR'S ORGANIZ ATION 04/29/2024 [facility] DATE CREATED AUTHOR AUTHOR'S ORGANIZ ATION 05/18/2024 [facility] DATE CREATED AUTHOR AUTHOR'S ORGANIZ ATION 08/27/2024 [facility] DATE CREATED AUTHOR AUTHOR'S ORGANIZ ATION 09/29/2024 [facility] dical Specialists EPIC Care Teams (unrecognized sec tion and content) Team Status: Active Member Role Status Dates Sera Flower MD Primary Care Provider Active Team Status: Inactive Member Role Status Dates Sera Flower MD Primary Care Provider, Other Provider Active Rene Cortez MD Attending Provider Active [employer]aper [employer] Presser Relationship Specialty Start Date End Date Sera Flower MD [address] [place] [id number] PCP - General 02/16/21 Team Status: Inactive Member Role Status Dates Sera Flower MD Primary Care Provider Active St art: June 14, 2023 End: June 14, 2023 Jasper Gross DO Emergency Provider Active Start: June 14, 2023 End: June 14, 2023 [employer]aper And Presser Relationship Specialty Start Date End Date Sera Flower MD [address] [place] [address] PCP - Hum[employer] 05/28/22 Sera Flower MD [address] [place] [address] PCP - General Internal Medicine 10/03/22 [employer] Presser Relationship Specialty Start Date End Date Sera Flower MD [address] [place] [address] PCP - General 02/16/21 [employer] Presser Relationship Specialty Start Date End Date Sera Flower MD [address] [place] [address] PCP - Humana 05/28/22 Sera Flower MD [address] [place] [address] PCP - General Internal Medicine 10/03/22 Tootie Jacobson RN [address] [place] [address] Registered Nurse Internal Medicine 08/10/23 Rene Cortez MD [address] [facility] [address] [place] [address] Referring Physician Cardiology 09/05/23 [employer] Presser Relationship Specialty Start Date End Date Sera Flower MD [address] [place] [address] PCP - Hum[employer] 05/28/22 Sera Flower MD [address] [place] [address] PCP - General Internal Medicine 10/03/22 Tootie Jacobson RN [address] [place] [address] Registered Nurse Internal Medicine 08/10/23 03/28/24 Rene Cortez MD [address] [facility] [address] [place] [address] Referring Physician Cardiology 09/05/23 Sh[employer] And Presser Relationship Specialty Start Date End Date Sera Flower MD [address] [place] [address] PCP - Humana 05/28/22 Sera Flower MD [address] [place] [address] PCP - General Internal Medicine 10/03/22 Rene Cortez MD [address] [facility] [address] [place] [address] Referring Physician Cardiology 09/05/23 Orquidea Carreon, RN Registered Nurse Family Medicine 03/28/24 [employer] And Presser Relationship Specialty Start Date End Date Sera Flower MD [address] [place] [address] PCP - Humana 05/28/22 Sera Flower MD [address] [place] [address] PCP - General Internal Medicine 10/03/22 Tootie Jacobson RN [address] [place] [address] Registered Nurse Internal Medicine 08/10/23 Rene Cortez MD [address] [facility] [address] [place] [address] Referring Physician Cardiology 09/05/23 Shaper And Presser Relationship Specialty Start Date End Date Sera Flower MD [address] [place] [address] PCP - Humana 05/28/22 Sera Flower MD [address] [place] [address] PCP - General Internal Medicine 10/03/22 Tootie Jacobson RN [address] [place] [address] Registered Nurse Internal Medicine 08/10/23 Rene Cortez MD [address] [facility] [address] [place] [address] Referring Physician Cardiology 09/05/23 Shaper And Presser Relationship Specialty Start Date End Date Sera Flower MD [address] [place] [address] PCP - Humana 05/28/22 Sera Flower MD [address] [place] [address] PCP - General Internal Medicine 10/03/22 Tootie Jacobson, DOUG [address] [place] [address] Registered Nurse Internal Medicine 08/10/23 Rene Cortez MD [address] [facility] [address] [place] [address] Referring Physician Cardiology 09/05/23 Shaper And Presser Relationship Specialty Start Date End Date Sera Flower MD [address] [facility] [place] [id number] PCP - General 02/16/21 Shaper And Presser Relationship Specialty Start Date End Date Sera Flower MD [address] [place] [address] PCP - Humana 05/28/22 Sera Flower MD [address] [place] [address] PCP - General Internal Medicine 10/03/22 Rene Cortez MD [address] [facility] [address] [place] [address] Referring Physician Cardiology 09/05/23 Orquidea Shah, RN Registered Nurse Internal Medicine 06/03/24 Shaper And Presser Relationship Specialty Start Date End Date Sera Flower MD [address] [place] [address] PCP - Humana 05/28/22 Sera Flower MD [address] [place] [address] PCP - General Internal Medicine 10/03/22 Rene Cortez MD [address] [facility] [address] [place] [address] Referring Physician Cardiology 09/05/23 Orquidea Shah RN Registered Nurse Internal Medicine 06/03/24 Shaper And Presser Relationship Specialty Start Date End Date Sera Flower MD [address] [place] [address] PCP - Humana 05/28/22 Sera Flower MD [address] [place] [address] PCP - General Internal Medicine 10/03/22 Rene Cortez MD [address] [facility] [address] [place] [address] Referring Physician Cardiology 09/05/23 Orquidea Shah RN Registered Nurse Internal Medicine 06/03/24 Shaper And Presser Relationship Specialty Start Date End Date Sera Flower MD [address] [place] [address] PCP - Humana 05/28/22 Sera Flower MD [address] [place] [address] PCP - General Internal Medicine 10/03/22 Rene Cortez MD [address] [facility] [address] [place] [address] Referring Physician Cardiology 09/05/23 Orquidea Shah RN Registered Nurse Internal Medicine 06/03/24 Evens Morgan MD [address] [facility] [address] [place] [address] Referring Physician Pulmonary Disease 09/24/24 John Baptiste MD [address] [facility] [place] [address] Referring Physician Urology 09/24/24 Jessica Busby NP [address] [facility] [address] [place] [address] Nurse Practitioner Family Medicine 09/24/24 [facility] [...] BE BASED ON THE PRIMARY CLINICAL RECORDS. [employer] [facility]. provides no warranty or guarantee of the accuracy or completeness of information in this document.
--- NOTE | 2024-10-09 11:28 | ED.GENADUL1 ---
HPI HPI - General Adult General Chief complaint: Shortness of Breath/Dyspnea Stated complaint: COUGHING SOB WEAKNESS SHAKES Time Seen by Provider: 10/09/24 11:13 Source: patient Mode of arrival: Wheelchair History of Present Illness HPI narrative: 69-year-old male presents for cough. He has been coughing up some clear phlegm and he has been feeling short of breath and wheezing. He had been seen here few days ago and was diagnosed with a URI and was put on an antibiotic. He has not had hemoptysis or fever. He has been feeling this way for a few days. Related Data Home Medications ?Medication ?Instructions ?Recorded ?Confirmed carvedilol 6.25 mg tablet 6.25 mg PO Q12H 07/22/23 10/09/24 losartan 50 mg tablet 50 mg PO DAILY 07/22/23 10/09/24 omeprazole 20 mg capsule,delayed 20 mg PO Q24H 07/22/23 10/09/24 release tamsulosin 0.4 mg capsule 0.4 mg PO DAILY 07/22/23 10/09/24 sildenafil 100 mg tablet 100 mg PO Q24H PRN erectile 02/17/24 10/06/24 dysfunction Previous Rx's ?Medication ?Instructions ?Recorded albuterol sulfate 90 mcg/actuation 2 inh inhalation Q6H PRN shortness 12/25/23 aerosol inhaler (Ventolin HFA) of breath or wheezing #6.7 grams furosemide 40 mg tablet (Lasix) 40 mg PO DAILY #30 tabs 12/25/23 ipratropium 0.5 mg-albuterol 3 mg 3 ml inhalation Q6H PRN shortness 02/02/24 (2.5 mg base)/3 mL nebulization of breath #90 mL soln azithromycin 250 mg tablet See Rx Instructions PO .COMPLEX #6 10/06/24 (Zithromax Z-Santos) tabs Allergies Allergy/AdvReac Type Severity Reaction Status Date / Time codeine AdvReac Intermediate Hallucinati Verified 10/09/24 11:15 ng Opioid HPI Opioid Management Most Recent Opioid Data: Last Pain Scale 3 02/16/24, 09:49 Last ORT Total Score 0 02/17/24, 13:11 Last ORT Risk Category Low Risk 02/17/24, 13:11 Review of Systems ROS Narrative A ten point review of systems is negative except as noted above. PFSH PFSH Medical History Pneumonia due to COVID-19 virus ?U07.1 - COVID-19 (ICD-10) ?J12.82 - Pneumonia due to coronavirus disease 2019 (ICD-10) COVID-19 ?U07.1 - COVID-19 (ICD-10) Acute on chronic congestive heart failure ?I50.9 - Heart failure, unspecified (ICD-10) COPD exacerbation ?J44.1 - Chronic obstructive pulmonary disease with (acute) exacerbation (ICD-10) Congestive heart failure ?I50.9 - Heart failure, unspecified (ICD-10) BPH (benign prostatic hyperplasia) ?N40.0 - Benign prostatic hyperplasia without lower urinary tract symptoms (ICD-10) CAD (coronary artery disease) ?I25.10 - Atherosclerotic heart disease of [place] coronary artery without angina pectoris (ICD-10) GERD (gastroesophageal reflux disease) ?K21.9 - Gastro-esophageal reflux disease without esophagitis (ICD-10) Hypertension ?I10 - Essential (primary) hypertension (ICD-10) COPD (chronic obstructive pulmonary disease) ?J44.9 - Chronic obstructive pulmonary disease, unspecified (ICD-10) Bronchitis ?J40 - Bronchitis, not specified as acute or chronic (ICD-10) Emphysema of lung ?J43.9 - Emphysema, unspecified (ICD-10) Heart attack ?I21.9 - Acute myocardial infarction, unspecified (ICD-10) COPD exacerbation ?J44.1 - Chronic obstructive pulmonary disease with (acute) exacerbation (ICD-10) COVID-19 ?U07.1 - COVID-19 (ICD-10) Surgical History H/O sinus surgery ?Z98.890 - Other specified postprocedural states (ICD-10) H/O shoulder surgery ?Z98.890 - Other specified postprocedural states (ICD-10) H/O heart artery stent ?Z95.5 - Presence of coronary angioplasty implant and graft (ICD-10) Family History Aunt Family history of cancer Mother Family history of diabetes mellitus Brother Family history of hypertension Father Family history of hypertension Social History Within the past year, how often did you have a drink containing alcohol: never Score interpretation: A score less than 4 is consistent with normal alcohol consumption. 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 Known occupational exposures/hazards: No Highest level of school completed/degree received: high school graduate Are you now , , , , never or living with a partner: In a typical week, how many times do you talk on the telephone with family, friends, or neighbors: 3 or more times per week How often do you get together with friends or relatives: 3 or more times per week How often do you attend amish or buddhist services: never Little interest or pleasure in doing things: not at all Feeling down, depressed, or hopeless: not at all Feel stressed/tense/nervous/anxious/difficulty sleeping: not at all Do you think of yourself as: straight/heterosexual Gender Identity: male Exam Narrative Exam Narrative: Nurses note and vital signs reviewed and patient is not hypoxic. General: The patient is coughing frequently. Skin: Warm, dry, no pallor noted. There is no rash noted. Head: Normocephalic, atraumatic Eye: Normal conjunctiva, no drainage Ears, Nose, Mouth, and Throat: oral mucosa is moist. Nares patent. Cardiovascular: Regular Rate and Rhythm Respiratory: Some rhonchi present, he is coughing frequently and has difficulty taking in a deep breath Back: non-tender GI: Soft and nontender Musculoskeletal: The patient has no evidence of calf tenderness, no pitting edema, symmetrical pulses noted bilaterally Neurological: A&O, normal speech Psychiatric: Cooperative Constitutional Vital Signs, click to edit/add: Last Vital Signs Temp 98.6 F 10/09/24 11:13 Pulse 88 10/09/24 12:20 Resp 22 H 10/09/24 12:20 BP 128/80 10/09/24 12:00 Pulse Ox 95 10/09/24 12:20 O2 Del Method Nasal Cannula 10/09/24 12:01 O2 Flow Rate 3 10/09/24 12:01 Course Vital Signs Vital signs: Vital Signs Temperature 98.6 F 10/09/24 11:13 Pulse Rate 95 H 10/09/24 11:13 Respiratory Rate 22 H 10/09/24 11:13 Blood Pressure 150/83 H 10/09/24 11:13 Pulse Oximetry 89 L 10/09/24 11:13 Oxygen Delivery Method Room Air 10/09/24 11:13 Temperature 98.6 F 10/09/24 11:13 Pulse Rate 88 10/09/24 12:20 Respiratory Rate 22 H 10/09/24 12:20 Blood Pressure 128/80 10/09/24 12:00 Pulse Oximetry 95 10/09/24 12:20 Oxygen Delivery Method Nasal Cannula 10/09/24 12:01 Oxygen Delivery Flow Rate 3 10/09/24 12:01 Medical Decision Making MDM Narrative Medical decision making narrative: Chest x-ray is negative. Cultures were obtained and he was given IV Levaquin since he has been on Zithromax for several days. Sodium is also minimally low at 130. He is being admitted for observation. Treatment diagnosis and disposition were discussed with the patient. Differential Diagnosis Differential Diagnosis: Pneumonia, COPD exacerbation, dehydration Lab Data Lab results reviewed: Yes I reviewed the patient's lab results Labs: Lab Results 10/09/24 10/09/24 Range/Units 11:34 11:46 WBC 9.4 (4.0-11.0) 10^3/uL RBC 4.67 L (4.70-6.10) 10^6/uL Hgb 13.4 L (14.0-18.0) g/dL Hct 39.4 L (42.0-54.0) % MCV 84.4 (80.0-94.0) fL MCH 28.7 (25.9-34.0) pg MCHC 34.0 (29.9-35.2) g/dL RDW 14.4 (11.0-15.0) % Plt Count 179 (150-450) 10^3/uL MPV 9.7 (9.5-13.5) fL Neut % (Auto) 78.2 H (43.0-75.0) % Lymph % (Auto) 8.3 L (20.5-60.0) % [place] % (Auto) 9.6 (1.7-12.0) % Eos % (Auto) 3.0 (0.9-7.0) % Baso % (Auto) 0.4 (0.2-2.0) % Neut # (Auto) 7.4 H (1.4-6.5) 10^3/uL Lymph # (Auto) 0.8 L (1.2-3.8) 10^3/uL [place] # (Auto) 0.9 H (0.3-0.8) 10^3/uL Eos # (Auto) 0.3 (0.0-0.7) 10^3/uL Baso # (Auto) 0.0 (0.0-0.1) 10^3/uL Abs Immat Gran (auto) 0.05 H (0.00-0.03) 10^3/uL Imm/Tot Granulo (auto) 0.5 (0.0-0.5) % Sodium 130 L (136-145) mmol/L Potassium 3.9 (3.5-5.1) mmol/L Chloride 96 L (98-107) mmol/L Carbon Dioxide 23.5 (21.0-32.0) mmol/L Anion Gap 14.4 BUN 11.0 (7.0-18.0) mg/dL Creatinine 1.11 (0.70-1.30) mg/dL Est GFR ( Amer) >60 (>=60 mL/min/1.73m^2) Est GFR (Non-Af Amer) >60 (>=60 mL/min/1.73m^2) BUN/Creatinine Ratio 9.9 Glucose 124 H (74-106) mg/dL Calcium 8.7 (8.5-10.1) mg/dL Influenza Type A Ag Negative Influenza Type B Ag Negative SARS-CoV-2 Ag (CV2AG) Negative (NEGATIVE) Imaging Data Chest x-ray: Radiologist's impression: No acute process ECG Data Attestation: I personally reviewed and interpreted this ECG as follows: (EKG on my interpretation shows sinus rhythm with rate of 93 and no acute change) Critical Care Time Critical Care Time Critical Care Time: Yes Total Critical Care Time: 35 Attestation: Due to the high probability of sudden and clinically significant deterioration in the patient's condition he/she required the highest level of my preparedness to intervene urgently I provided critical care time including documentation time, medication orders and management, reevaluation, vital sign assessment, ordering and reviewing of lab tests, ordering and reviewing of x-ray studies, and admission orders. Aggregate critical care time is 35 minutes including only time during which I was engaged in work directly related to his/her care and did not include time spent treating other patients simultaneously. Discharge Plan Discharge Chief Complaint: Shortness of Breath/Dyspnea Clinical Impression: COPD exacerbation Patient Disposition: Admitted as Observation Time of Disposition Decision: 12:29 Condition: Fair
[2024-10-09] MEDS: METHYLPREDNISOLONE SOD SUCC PF 125 MG/2 ML VIAL IVP ×3 (11:53→23:13)
[2024-10-09 11:54] LABS: Basophils Percent Auto 0.4 % (0.2-2.0); Eosinophils Absolute Auto 0.3 10^3/uL (0.0-0.7); Hematocrit 39.4 % (42.0-54.0); Hemoglobin 13.4 g/dL (14.0-18.0); Immature Granulocytes Abs Auto 0.05 10^3/uL (0.00-0.03); Immature Granulocytes Pct Auto 0.5 % (0.0-0.5); Lymphocytes Absolute Auto 0.8 10^3/uL (1.2-3.8); Lymphocytes Percent Auto 8.3 % (20.5-60.0); Mean Corpuscular Hemoglobin 28.7 pg (25.9-34.0); Mean Corpuscular Volume 84.4 fL (80.0-94.0); Mean Platelet Volume 9.7 fL (9.5-13.5); Monocytes Absolute Auto 0.9 10^3/uL (0.3-0.8); Monocytes Percent Auto 9.6 % (1.7-12.0); Neutrophils Absolute Auto 7.4 10^3/uL (1.4-6.5); Neutrophils Percent Auto 78.2 % (43.0-75.0); Platelet Count 179 10^3/uL (150-450); Red Blood Count 4.67 10^6/uL (4.70-6.10); Red Cell Distribution Width 14.4 % (11.0-15.0); White Blood Count 9.4 10^3/uL (4.0-11.0)
[2024-10-09] MEDS: ALBUTEROL SULFATE 2.5 MG/3 ML VIAL NEB IH (12:00)
[2024-10-09 12:05] LABS: Influenza Virus A Antigen Negative; Influenza Virus B Antigen Negative; Internal Control Within Normal Limits; SARS-CoV-2 Ag NEGATIVE (NEGATIVE)
[2024-10-09 12:08] LABS: Anion Gap 14.4; BUN Creatinine Ratio 9.9; Calcium 8.7 mg/dL (8.5-10.1); Carbon Dioxide 23.5 mmol/L (21.0-32.0); Chloride 96 mmol/L (98-107); Estimated GFR (African America >60 (>=60 mL/min/1.73m^2); Estimated GFR (Non-African Ame >60 (>=60 mL/min/1.73m^2); Glucose 124 mg/dL (74-106); Potassium 3.9 mmol/L (3.5-5.1); Sodium 130 mmol/L (136-145)
[2024-10-09 12:32] LABS: Lactate/Lactic Acid 2.9 mmol/L (0.4-2.0)
[2024-10-09] MEDS: LEVOFLOXACIN IN DEXTROSE 5 % 750 MG/150 ML PREMIX 100 MG IV (12:46)
--- NOTE | 2024-10-09 12:54 | P.HP_ITS ---
HPI H&P: HPI History of Present Illness Chief complaint: COPD EXACERBATION Narrative: Patient has been in the ER x 3 in the last week, increasing cough and shortness of breath, outpatient treatment failing, patient was admitted for workup and treatment of acute exacerbation of COPD secondary to acute bronchitis When I saw patient up in the medical surgical floor, resting comfortably in bed, cough throughout the evaluation, but no significant dyspnea at rest Opioid HPI Opioid Management Most Recent Pain and Opioid Data: Last Pain Scale 3 02/16/24, 09:49 Last Pain Assessment Today, 14:00 Last ORT Total Score 0 Today, 13:49 Last ORT Risk Category Low Risk Today, 13:49 Review of Systems ROS Status of ROS 10 or more systems reviewed and unremark able except as noted in history and below [facility] Pneumonia due to COVID-19 virus ?U07.1 - COVID-19 (ICD-10) ?J12.82 - Pneumonia due to coronavirus disease 2019 (ICD-10) COVID-19 ?U07.1 - COVID-19 (ICD-10) Acute on chronic congestive heart failure ?I50.9 - Heart failure, unspecified (ICD-10) COPD exacerbation ?J44.1 - Chronic obstructive pulmonary disease with (acute) exacerbation (ICD-10) Congestive heart failure ?I50.9 - Heart failure, unspecified (ICD-10) BPH (benign prostatic hyperplasia) ?N40.0 - Benign prostatic hyperplasia without lower urinary tract symptoms (ICD-10) CAD (coronary artery disease) ?I25.10 - Atherosclerotic heart disease of [place] coronary artery without angina pectoris (ICD-10) GERD (gastroesophageal reflux disease) ?K21.9 - Gastro-esophageal reflux disease without esophagitis (ICD-10) Hypertension ?I10 - Essential (primary) hypertension (ICD-10) COPD (chronic obstructive pulmonary disease) ?J44.9 - Chronic obstructive pulmonary disease, unspecified (ICD-10) Bronchitis ?J40 - Bronchitis, not specified as acute or chronic (ICD-10) Emphysema of lung ?J43.9 - Emphysema, unspecified (ICD-10) Heart attack ?I21.9 - Acute myocardial infarction, unspecified (ICD-10) COPD exacerbation ?J44.1 - Chronic obstructive pulmonary disease with (acute) exacerbation (ICD-10) COVID-19 ?U07.1 - COVID-19 (ICD-10) Surgical History H/O sinus surgery ?Z98.890 - Other specified postprocedural states (ICD-10) H/O shoulder surgery ?Z98.890 - Other specified postprocedural states (ICD-10) H/O heart artery stent ?Z95.5 - Presence of coronary angioplasty implant and graft (ICD-10) Family History Aunt Family history of cancer Mother Family history of diabetes mellitus Brother Family history of hypertension Father Family history of hypertension Social History Within the past year, how often did you have a drink containing alcohol: never Score interpretation: A score less than 4 is consistent with normal alcohol consumption. Smoking status: Former smoker Non-prescribed substance use: denies use Previous occupational history: [employer] Known occupational exposures/hazards: No Highest level of school completed/degree received: high school graduate Are you now , , , , never or living with a partner: In a typical week, how many times do you talk on the telephone with family, friends, or neighbors: 3 or more times per week How often do you get together with friends or relatives: 3 or more times per week How often do you attend jain or mu-ism services: never Little interest or pleasure in doing things: not at all Feeling down, depressed, or hopeless: not at all Feel stressed/tense/nervous/anxious/difficulty sleeping: not at all Do you think of yourself as: straight/heterosexual Gender Identity: male Meds Home Medications and Allergies Home Medications ?Medication ?Instructions ?Recorded ?Confirmed ?Type carvedilol 6.25 mg tablet 6.25 mg PO Q12H 07/22/23 History omeprazole 20 mg capsule,delayed 20 mg PO Q24H PRN hea rtburn 07/22/23 10/09/24 History release tamsulosin 0.4 mg capsule 0.8 mg PO .qhs 07/22/2309/25 History albuterol sulfate 90 mcg/actuation 2 inh inhalation Q6 H PRN shortness 12/25/23 10/09/24 Rx aerosol inhaler (Ventolin HFA) of breath or wheezing # 6.7 grams ipratropium 0.5 mg-albuterol 3 mg 3 ml inhalation Q6H PRN shortness 02/02/24 10/09/24 Rx (2.5 mg base)/3 mL nebulization of breath #90 mL soln azithromycin 250 mg tablet See Rx Instructions PO .COM PLEX #6 10/06/24 10/09/24 Rx (Zithromax Z-Asntos) tabs fluticasone propionate 115 2 puff inhalation BID 10/0910/09/24 History mcg-salmeterol 21 mcg/actuation HFA inhaler (Advair HFA) furosemide 40 mg tablet (Lasix) 40 mg PO DAILY PRN vince ma 10/09/24 10/09/24 History Allergies Allergy/AdvReac Type Severity Reaction Status Date / Time codeine AdvReac Intermediate Hallucinati Verified 10/09/24 11:15 ng Exam Constitutional Vital Signs, click to edit/add: Last Vital Signs Temp 98.6 F 10/09/24 11:13 Pulse 88 10/09/24 12:20 Resp 22 H 10/09/24 12:20 BP 128/80 10/09/24 12:00 Pulse Ox 95 10/09/24 12:20 O2 Del Method Nasal Cannula 10/09/24 12:01 O2 Flow Rate 3 10/09/24 12:01 Documenting provider has reviewed patient's vital signs: yes Common normals: no apparent distress Chest Common normals: inspection of chest normal and palpation of chest normal Respiratory Common normals: normal respiratory effort and no retractions; not clear to ascultation bilaterally (Diffuse wheeze and rhonchi with diminished air exchange) Cardio Common normals: regular rate, regular rhythm and no murmurs GI Common normals: soft to palpation and non-tender; negative for Normal to inspection, nondistended, normoactive bowel sounds present (Morbid obesity) Extremity Common normals: normal to inspection and full ROM Results Labs Labs: Short CBC 10/09/24 Range/Units 11:34 WBC 9.4 (4.0-11.0) 10^3/uL Hgb 13.4 L (14.0-18.0) g/dL Hct 39.4 L (42.0-54.0) % Plt Count 179 (150-450) 10^3/uL [facility] 10/09/24 11:34 Sodium 130 L Potassium 3.9 Chloride 96 L Carbon Dioxide 23.5 BUN 11.0 Creatinine 1.11 Glucose 124 H Calcium 8.7 Assessment and Plan Assessment and Plan (1) Congestive heart failure: (2) Acute hyponatremia: (3) URI (upper respiratory infection): (4) COPD exacerbation: (5) Hypertension: Qualifiers: Hypertension type: primary hypertension Qualified Code(s): I10 - Essential (primary) hypertension (6) GERD (gastroesophageal reflux disease): Qualifiers: Esophagitis presence: without esophagitis Qualified Code(s): K21.9 - Gastro-esophageal reflux disease without esophagitis (7) BPH (benign prostatic hyperplasia): Qualifiers: Lower urinary tract symptom presence: symptoms absent Qualified Code(s): N40.0 - Benign prostatic hyperplasia without lower urinary tract symptoms Plan Admission findings: Fever (baseline temperature for him as documented with previous visits is 72.5, temperature here is 100 which would put him 2.5 degrees above baseline), tachycardia, respiratory distress, acute hypoxia with O2 sat less than 89%, low normal white blood cell count but leukocytosis and positive lactic acidosis consistent with acute sepsis secondary to acute exacerbation of COPD secondary to acute bronchitis Acute exacerbation of COPD secondary to acute bronchitis with failed outpatient treatment with ER visits x 2, failing oral medications resulting in sepsis with lactic acidosis-IV antibiotics, steroids, aerosol treatments. If wheezes have resolved by tomorrow which is unlikely, he will likely be discharged home tomorrow. Hyponatremia-this is chronic for him, repeat in a.m. Hypertension-continue with home medications GERD-continue with home medications History of chronic combined congestive heart failure-unable to give aggressive fluid resuscitation secondary to the sepsis secondary to the acute combined congestive heart failure-check on labs Admission status: Patient with failed outpatient treatment of acute bronchitis resulting in acute exacerbation of COPD with the failed outpatient treatment resulting in sepsis. Try to wean patient off of supplemental oxygen overnight will start patient off as observational status as there is a 50-50 chance to be discharged to home tomorrow. If unable to wean off of supplemental oxygen or improve his lung function by tomorrow, medically necessary treatment will then span 2 midnights and he will be changed to inpatient status
[2024-10-09 14:53] LABS: Internal Control Within Normal Limits; Respiratory Syncytial Virus Not Detected (NOT DETECTE)
[2024-10-09 15:02] LABS: Lactate/Lactic Acid 1.2 mmol/L (0.4-2.0)
[2024-10-09 15:07] LABS: Alanine Aminotransferase 29 U/L (16-63); Albumin Globulin Ratio 0.7; Albumin Level 2.7 g/dL (3.4-5.0); Alkaline Phosphatase 65 U/L (46-116); Aspartate Amino Transferase 34 U/L (15-37); Bilirubin Direct 0.1 mg/dL (0.0-0.2); Bilirubin Total 0.5 mg/dL (0.2-1.0); Globulin 3.8 g/dL; Total Protein 6.5 g/dL (6.4-8.2); Troponin I High Sensitivity 14.3 pg/mL (4.0-76.1)
--- NOTE | 2024-10-09 15:15 | SWNOTE1 ---
Medicare Outpatient Observation Notice reviewed and discussed with patient. Pt. verbalized understanding and signed the form. Original given to patient and copy placed in patient?s chart.
--- NOTE | 2024-10-09 15:15 | SWNOTE1 ---
SW met with pt to discuss dc needs. Pt lives at home with his . Pt is independent and does not use any DME at home. Pt does not wear home oxygen, is on 2 liters here at hospital. Pt voiced he was short of breath and has upper respiratory infection. Pt voiced he is feeling a little better now. Pt has an upstairs where his bedroom is and has to go up and down stairs daily. He voiced he goes downstairs too. He stated it is good exercise for him. SW asked if any services were coming in to the home currently, he stated no. At this time pt has not anticipated discharge needs. SW to follow as needed.
[2024-10-09] MEDS: CEFTRIAXONE 1,000 MG in 0.9 % SODIUM CHLORIDE 50 ML 100 MG IV (15:54)
[2024-10-09] MEDS: IPRATROPIUM/ALBUTEROL SULFATE 3 ML AMPUL.NEB IH ×2 (16:39→22:00)
[2024-10-09] MEDS: TAMSULOSIN HCL 0.4 MG CAPSULE 0.8 MG PO (21:06)
[2024-10-09] MEDS: CARVEDILOL 6.25 MG TABLET PO (21:07)
[2024-10-10] VITALS (11 sets, daily range): BP systolic 114–143; BP diastolic 64–85; PULSE 67–94; TEMP 36.3–36.6; O2SAT 90–96
[2024-10-10] MEDS: IPRATROPIUM/ALBUTEROL SULFATE 3 ML AMPUL.NEB IH ×4 (05:09→22:19)
[2024-10-10] MEDS: METHYLPREDNISOLONE SOD SUCC PF 125 MG/2 ML VIAL IVP ×3 (05:24→17:20)
[2024-10-10 06:09] LABS: Basophils Percent Auto 0.1 % (0.2-2.0); Eosinophils Percent Auto 0.1 % (0.9-7.0); Hematocrit 36.7 % (42.0-54.0); Hemoglobin 12.9 g/dL (14.0-18.0); Immature Granulocytes Abs Auto 0.02 10^3/uL (0.00-0.03); Immature Granulocytes Pct Auto 0.3 % (0.0-0.5); Lymphocytes Absolute Auto 0.9 10^3/uL (1.2-3.8); Lymphocytes Percent Auto 12.6 % (20.5-60.0); Mean Corpuscular HGB Conc 35.1 g/dL (29.9-35.2); Mean Corpuscular Hemoglobin 28.9 pg (25.9-34.0); Mean Corpuscular Volume 82.3 fL (80.0-94.0); Mean Platelet Volume 10.1 fL (9.5-13.5); Monocytes Absolute Auto 0.2 10^3/uL (0.3-0.8); Monocytes Percent Auto 2.8 % (1.7-12.0); Neutrophils Absolute Auto 5.8 10^3/uL (1.4-6.5); Neutrophils Percent Auto 84.1 % (43.0-75.0); Platelet Count 188 10^3/uL (150-450); Red Blood Count 4.46 10^6/uL (4.70-6.10); Red Cell Distribution Width 13.9 % (11.0-15.0); White Blood Count 6.9 10^3/uL (4.0-11.0)
[2024-10-10 06:29] LABS: Anion Gap 15.2; BUN Creatinine Ratio 18.7; Carbon Dioxide 22.1 mmol/L (21.0-32.0); Chloride 99 mmol/L (98-107); Estimated GFR (African America >60 (>=60 mL/min/1.73m^2); Estimated GFR (Non-African Ame >60 (>=60 mL/min/1.73m^2); Glucose 171 mg/dL (74-106); Potassium 4.3 mmol/L (3.5-5.1); Sodium 132 mmol/L (136-145)
--- NOTE | 2024-10-10 07:53 | P.PN_ITS ---
Progress Note: Subjective Subjective Interval history: Feels better with his breathing this morning, still significant cough throughout the evaluation, had to bump up his oxygen from 2 L to 3 L overnight. Exam Constitutional Vital Signs, click to edit/add: Last Vital Signs Temp 97.4 F L 10/10/24 04:00 Pulse 67 10/10/24 05:12 Resp 18 10/10/24 05:12 BP 126/80 10/10/24 04:00 Pulse Ox 92 L 10/10/24 05:12 O2 Del Method Nasal Cannula 10/10/24 05:12 O2 Flow Rate 2 10/10/24 05:12 Documenting provider has reviewed patient's vital signs: yes Common normals: no apparent distress Chest Common normals: inspection of chest normal and palpation of chest normal Respiratory Common normals: normal respiratory effort and no retractions; not clear to ascultation bilaterally (Diffuse wheeze and rhonchi persisting but improved air exchange) Cardio Common normals: regular rate, regular rhythm, S1 normal heart sound and S2 normal heart sound GI Common normals: soft to palpation, non-tender, no hepatosplenomegaly and no masses; negative for Normal to inspection, nondistended, normoactive bowel sounds present (Morbid obesity) Extremity Common normals: normal to inspection and full ROM Progress Note: Objective Labs Labs: Short CBC 10/09/24 10/10/24 Range/Units 11:34 05:19 WBC 9.4 6.9 (4.0-11.0) 10^3/uL Hgb 13.4 L 12.9 L (14.0-18.0) g/dL Hct 39.4 L 36.7 L (42.0-54.0) % Plt Count 179 188 (150-450) 10^3/uL BMP 10/09/24 10/10/24 11:34 05:19 Sodium 130 L 132 L Potassium 3.9 4.3 Chloride 96 L 99 Carbon Dioxide 23.5 22.1 BUN 11.0 14.0 Creatinine 1.11 0.75 Glucose 124 H 171 H Calcium 8.7 9.0 Liver Function 10/09/24 Range/Units 14:36 Total Bilirubin 0.5 (0.2-1.0) mg/dL Direct Bilirubin 0.1 (0.0-0.2) mg/dL AST 34 (15-37) U/L ALT 29 (16-63) U/L Alkaline Phosphatase 65 (46-116) U/L Albumin 2.7 L (3.4-5.0) g/dL Progress Note: A&P Assessment and Plan (1) Congestive heart failure: (2) Acute hyponatremia: (3) URI (upper respiratory infection): (4) COPD exacerbation: (5) Hypertension: Qualifiers: Hypertension type: primary hypertension Qualified Code(s): I10 - Essential (primary) hypertension (6) GERD (gastroesophageal reflux disease): Qualifiers: Esophagitis presence: without esophagitis Qualified Code(s): K21.9 - Gastro-esophageal reflux disease without esophagitis (7) BPH (benign prostatic hyperplasia): Qualifiers: Lower urinary tract symptom presence: symptoms absent Qualified Code(s ): N40.0 - Benign prostatic hyperplasia without lower urinary tract symptoms Plan Admission findings: Fever (baseline temperature for him as documented with previous visits is 72.5, temperature here is 100 which would put him 2.5 degrees above baseline), tachycardia, respiratory distress, acute hypoxia with O2 sat less than 89%, low normal white blood cell count but leukocytosis and positive lactic acidosis consistent with acute sepsis secondary to acute exacerbation of COPD secondary to acute bronchitis Acute hypoxia with acute exacerbation of COPD secondary to acute bronchitis with failed outpatient treatment with ER visits x 2, failing oral medications resulting in sepsis with lactic acidosis-continues IV antibiotics, steroids, high-dose, aerosol treatments. Had to bump up his oxygen overnight to 3 L, so far this morning is back down to 2 L and will try to wean throughout the course of the day today Hyponatremia-this is chronic for him, repeat in a.m.-improved this morning Iron deficiency anemia-monitor daily diarrhea somewhat today Hypertension-continue with home medications-improving GERD-continue with home medications History of chronic combined congestive heart failure-unable to give aggressive fluid resuscitation secondary to the sepsis secondary to the acute combined congestive heart failure-check on labs sleep apnea-will complete testing as an outpatient Morbid obesity-diet management Moderate protein calorie malnutrition-diet supplement Admission status: Patient with failed outpatient treatment of acute bronchitis resulting in acute exacerbation of COPD with the failed outpatient treatment resulting in sepsis. Try to wean patient off of supplemental oxygen overnight will start patient off as observational status as there is a 50-50 chance to be discharged to home tomorrow. If unable to wean off of supplemental oxygen or improve his lung function by tomorrow, medically necessary treatment will then span 2 midnights and he will be changed to inpatient status Update to admission status: Patient with hypoxia worsened overnight time had to be bumped up to 3 L, white blood cell count normal but still with left shift consistent with bacterial process was unable to wean supplemental oxygen, medically necessary treatment will span 2 midnights. Inpatient status. I would suspect at least 2 more days ?
--- NOTE | 2024-10-10 08:10 | SWNOTE1 ---
SW reviewed PT note and not recommendations of services at this time. Plan is for discharge home with family once stable.
--- NOTE | 2024-10-10 09:05 | SWNOTE1 ---
Important Message from Medicare reviewed and discussed with patient. Pt. verbalized understanding and signed the form. Original given to patient and copy placed in patient?s chart.
[2024-10-10] MEDS: CARVEDILOL 6.25 MG TABLET PO ×2 (10:11→22:12)
[2024-10-10] MEDS: BENZONATATE 100 MG CAPSULE 200 MG PO (10:11)
[2024-10-10] MEDS: FUROSEMIDE 40 MG TABLET PO (10:13)
[2024-10-10] MEDS: PANTOPRAZOLE SODIUM 40 MG TABLET.DR PO (12:14)
[2024-10-10] MEDS: LEVOFLOXACIN IN DEXTROSE 5 % 750 MG/150 ML PREMIX 100 MG IV (12:14)
--- NOTE | 2024-10-10 14:06 | PT.DAILY ---
Physical Therapy Daily Note PT Daily Note/Assess Start: 10/10/24 10:20 Freq: Status: Active Protocol: Document 10/10/24 13:48 NICK (Rec: 10/10/24 13:54 NICK [id number]) Physical Therapy Daily Note/Assessment Time In/Time Out Time In 13:30 Time Out 13:45 Pain In Pain N/A Pain Out Pain N/A Subjective Subjective Pt sitting in BS chair upon arrival. Agreeable to PT. IV hooked up currently. Pt is up ad del in room without AD. Therapeutic Exercise Time Therapeutic Exercise 0 Minutes (minutes) Therapeutic Exercise 5 Units Therapeutic Exercise Treatment Therapeutic Exercise Instructed to complete bilat LE strengthening ex in BS Treatment chair 20x ea. Occ vc to slow down and for proper form. Therapeutic Activity Time Therapeutic Activity 8 Minutes (minutes) Therapeutic Activity 1 Units Therapeutic Activity Treatment Chair Transfer Modified Independent Ability Therapeutic Activity Sit>stand from BS chair without assistance. Pt amb 100' Comments without AD with SPO2 dropping to 86% and HR 84. Assist with IV pole making amb and transfers Nisa today. Total Physical Therapy Time Total Therapy 8 Minutes Total Physical 6 Therapy Units Summary Daily Note Summary IMproved gait endurance but sats do drop to 86% with excretion on 2L O2.
[2024-10-10] MEDS: CEFTRIAXONE 1,000 MG in 0.9 % SODIUM CHLORIDE 50 ML 100 MG IV (15:00)
[2024-10-10] MEDS: POLYETHYLENE GLYCOL 3350 17 GM POWDER PACKET PO (16:45)
[2024-10-10] MEDS: TAMSULOSIN HCL 0.4 MG CAPSULE 0.8 MG PO (22:12)
[2024-10-10] MEDS: FLUTICASONE PROPIONATE 50 MCG NASAL SPRAY 2 SPRAY NS (22:12)
[2024-10-11] VITALS (15 sets, daily range): BP systolic 135–148; BP diastolic 72–82; PULSE 82–94; TEMP 36.3–36.6; O2SAT 90–95
[2024-10-11] MEDS: METHYLPREDNISOLONE SOD SUCC PF 125 MG/2 ML VIAL IVP ×4 (00:12→18:11)
[2024-10-11] MEDS: IPRATROPIUM/ALBUTEROL SULFATE 3 ML AMPUL.NEB IH ×5 (04:45→23:01)
[2024-10-11] MEDS: BENZONATATE 100 MG CAPSULE 200 MG PO ×2 (05:23→12:54)
[2024-10-11 06:15] LABS: Basophils Percent Auto 0.1 % (0.2-2.0); Hematocrit 37.8 % (42.0-54.0); Hemoglobin 12.8 g/dL (14.0-18.0); Immature Granulocytes Abs Auto 0.25 10^3/uL (0.00-0.03); Immature Granulocytes Pct Auto 1.3 % (0.0-0.5); Lymphocytes Absolute Auto 1.1 10^3/uL (1.2-3.8); Lymphocytes Percent Auto 5.6 % (20.5-60.0); Mean Corpuscular HGB Conc 33.9 g/dL (29.9-35.2); Mean Corpuscular Hemoglobin 28.2 pg (25.9-34.0); Mean Corpuscular Volume 83.3 fL (80.0-94.0); Mean Platelet Volume 10.2 fL (9.5-13.5); Monocytes Absolute Auto 0.7 10^3/uL (0.3-0.8); Monocytes Percent Auto 3.5 % (1.7-12.0); Neutrophils Absolute Auto 17.4 10^3/uL (1.4-6.5); Neutrophils Percent Auto 89.5 % (43.0-75.0); Platelet Count 226 10^3/uL (150-450); Red Blood Count 4.54 10^6/uL (4.70-6.10); Red Cell Distribution Width 14.2 % (11.0-15.0); White Blood Count 19.4 10^3/uL (4.0-11.0)
[2024-10-11 06:23] LABS: Anion Gap 15.9; BUN Creatinine Ratio 17.7; Calcium 9.2 mg/dL (8.5-10.1); Carbon Dioxide 25.4 mmol/L (21.0-32.0); Chloride 98 mmol/L (98-107); Estimated GFR (African America >60 (>=60 mL/min/1.73m^2); Estimated GFR (Non-African Ame >60 (>=60 mL/min/1.73m^2); Glucose 161 mg/dL (74-106); Potassium 4.3 mmol/L (3.5-5.1); Sodium 135 mmol/L (136-145)
--- NOTE | 2024-10-11 09:13 | P.PN_ITS ---
Progress Note: Subjective Subjective Interval history: state his breathing is better but still having difficulty with hypoxia off of supplemental oxygen, he does not wear oxygen at home currently Exam Constitutional Vital Signs, click to edit/add: Last Vital Signs Temp 97.8 F 10/11/24 07:48 Pulse 94 H 10/11/24 07:48 Resp 20 10/11/24 07:48 BP 140/80 10/11/24 07:48 Pulse Ox 90 L 10/11/24 07:48 O2 Del Method Nasal Cannula 10/11/24 07:48 O2 Flow Rate 3 10/11/24 07:48 Documenting provider has reviewed patient's vital signs: yes Common normals: no apparent distress Chest Common normals: inspection of chest normal Respiratory Common normals: normal respiratory effort and no retractions; not clear to ascultation bilaterally Auscultation: rhonchi (Better air exchange and improved) and wheezes (Just had breathing treatment, improved) Cardio Common normals: regular rate and regular rhythm Extremity Common normals: normal to inspection Progress Note: Objective Labs Labs: Short CBC 10/11/24 Range/Units 05:46 WBC 19.4 H (4.0-11.0) 10^3/uL Hgb 12.8 L (14.0-18.0) g/dL Hct 37.8 L (42.0-54.0) % Plt Count 226 (150-450) 10^3/uL BMP 10/11/24 05:46 Sodium 135 L Potassium 4.3 Chloride 98 Carbon Dioxide 25.4 BUN 17.0 Creatinine 0.96 Glucose 161 H Calcium 9.2 Progress Note: A&P Assessment and Plan (1) Congestive heart failure: (2) Acute hyponatremia: (3) URI (upper respiratory infection): (4) COPD exacerbation: (5) Hypertension: Qualifiers: Hypertension type: primary hypertension Qualified Code(s): I10 - Es sential (primary) hypertension (6) GERD (gastroesophageal reflux disease): Qualifiers: Esophagitis presence: without esophagitis Qualified Code(s): K21.9 - Gastro-esophageal reflux disease without esophagitis (7) BPH (benign prostatic hyperplasia): Qualifiers: Lower urinary tract symptom presence: symptoms absent Qualified Code(s): N40.0 - Benign prostatic hyperplasia without lower urinary tract symptoms Plan Admission findings: Fever (baseline temperature for him as documented with previous visits is 72.5, temperature here is 100 which would put him 2.5 degrees above baseline), tachycardia, respiratory distress, acute hypoxia with O2 sat less than 89%, low normal white blood cell count but leukocytosis and positive lactic acidosis consistent with acute sepsis secondary to acute exacerbation of COPD secondary to acute bronchitis Acute hypoxia with acute exacerbation of COPD secondary to acute bronchitis with failed outpatient treatment with ER visits x 2, failing oral medications resulting in sepsis with lactic acidosis-persistent hypoxia requiring 2 to 3 L of supplemental oxygen with unable to wean despite aggressive treatment, change patient to [facility], check CTA for alternate cause of his hypoxia Hyponatremia-continues to slowly improve Iron deficiency anemia-monitor daily diarrhea somewhat today Hypertension-stable GERD-continue with home medications History of chronic combined congestive heart failure-check on BNP sleep apnea-will complete testing as an outpatient Morbid obesity-diet management Moderate protein calorie malnutrition-diet supplement Admission status: Patient with failed outpatient treatment of acute bronchitis resulting in acute exacerbation of COPD with the failed outpatient treatment resulting in sepsis. Try to wean patient off of supplemental oxygen overnight will start patient off as observational status as there is a 50-50 chance to be discharged to home tomorrow. If unable to wean off of supplemental oxygen or improve his lung function by tomorrow, medically necessary treatment will then span 2 midnights and he will be changed to inpatient status Update to admission status: Patient with hypoxia worsened overnight time had to be bumped up to 3 L, white blood cell count normal but still with left shift consistent with bacterial process was unable to wean supplemental oxygen, medically necessary treatment will span 2 midnights. Inpatient status. I would suspect at least 1-2 more days ?
[2024-10-11] MEDS: POLYETHYLENE GLYCOL 3350 17 GM POWDER PACKET PO (10:00)
[2024-10-11] MEDS: CARVEDILOL 6.25 MG TABLET PO ×2 (10:01→21:03)
[2024-10-11] MEDS: PANTOPRAZOLE SODIUM 40 MG TABLET.DR PO (10:02)
[2024-10-11] MEDS: FUROSEMIDE 40 MG TABLET PO (10:02)
[2024-10-11] MEDS: FLUTICASONE PROPIONATE 50 MCG NASAL SPRAY 2 SPRAY NS (10:02)
--- NOTE | 2024-10-11 10:20 | PT.DAILY ---
Physical Therapy Daily Note PT Daily Note/Assess Start: 10/10/24 10:20 Freq: Status: Active Protocol: Document 10/11/24 10:18 NICK (Rec: 10/11/24 10:20 NICK [id number]) Physical Therapy Daily Note/Assessment Time In/Time Out Time In 10:00 Time Out 10:09 Pain In Pain N/A Pain Out Pain N/A Subjective Subjective Pt sitting in BS chair upon arrival. Agreeable to PT. On 2L O2. Therapeutic Exercise Time Therapeutic Exercise 3 Minutes (minutes) Therapeutic Exercise 0 Units Therapeutic Exercise Treatment Therapeutic Exercise Warm up with seated ex in BS chair to improve Treatment functional mobility prior to gait. Therapeutic Activity Time Therapeutic Activity 5 Minutes (minutes) Therapeutic Activity 1 Units Therapeutic Activity Treatment Chair Transfer Independent Ability Therapeutic Activity Sit>standing IND. Holding his own O2 lines pt amb 150' Comments without AD. SpO2 drops to 82% with 4 min to recover to 89%. Sits in BS chair upon completion with nursing present. Total Physical Therapy Time Total Therapy 8 Minutes Total Physical 1 Therapy Units Summary Daily Note Summary Sats cont to drop with amb/exertion. Nursing notified.
[2024-10-11] MEDS: SODIUM CHLORIDE 0.9% INHALATION 3 ML NEB IH (10:39)
[2024-10-11] MEDS: LEVOFLOXACIN IN DEXTROSE 5 % 750 MG/150 ML PREMIX 100 MG IV (12:53)
[2024-10-11] MEDS: LACTULOSE 10 GM/15 ML BOTTLE 237 ML 30 GM PO (14:50)
[2024-10-11] MEDS: CEFTRIAXONE 1,000 MG in 0.9 % SODIUM CHLORIDE 50 ML 100 MG IV (14:51)
[2024-10-11] MEDS: PIPERACILLIN SODIUM/TAZOBACTAM 3.375 GM in 0.9 % SODIUM CHLORIDE 50 ML IV (18:11)
[2024-10-11] MEDS: SODIUM CHLORIDE 0.9% INHALATION 3 ML NEB 6 ML IH ×2 (19:35→23:05)
[2024-10-11] MEDS: TAMSULOSIN HCL 0.4 MG CAPSULE 0.8 MG PO (21:03)
[2024-10-12] VITALS (16 sets, daily range): BP systolic 132–162; BP diastolic 68–88; PULSE 24–90; TEMP 36.4–36.7; O2SAT 86–96
[2024-10-12] MEDS: BENZONATATE 100 MG CAPSULE 200 MG PO ×3 (01:06→23:01)
[2024-10-12] MEDS: DIPHENHYDRAMINE HCL 25 MG CAPSULE PO ×2 (01:06→23:01)
[2024-10-12] MEDS: METHYLPREDNISOLONE SOD SUCC PF 125 MG/2 ML VIAL IVP ×2 (01:07→06:11)
[2024-10-12] MEDS: IPRATROPIUM/ALBUTEROL SULFATE 3 ML AMPUL.NEB IH ×5 (03:43→23:27)
[2024-10-12] MEDS: PIPERACILLIN SODIUM/TAZOBACTAM 3.375 GM in 0.9 % SODIUM CHLORIDE 50 ML IV ×3 (03:48→17:15)
[2024-10-12 06:25] LABS: Basophils Percent Auto 0.1 % (0.2-2.0); Eosinophils Percent Auto 0.1 % (0.9-7.0); Hematocrit 33.8 % (42.0-54.0); Hemoglobin 11.6 g/dL (14.0-18.0); Immature Granulocytes Abs Auto 0.12 10^3/uL (0.00-0.03); Lymphocytes Absolute Auto 0.7 10^3/uL (1.2-3.8); Lymphocytes Percent Auto 5.6 % (20.5-60.0); Mean Corpuscular HGB Conc 34.3 g/dL (29.9-35.2); Mean Corpuscular Hemoglobin 28.6 pg (25.9-34.0); Mean Corpuscular Volume 83.3 fL (80.0-94.0); Monocytes Absolute Auto 0.5 10^3/uL (0.3-0.8); Monocytes Percent Auto 3.7 % (1.7-12.0); Neutrophils Absolute Auto 11.3 10^3/uL (1.4-6.5); Neutrophils Percent Auto 89.5 % (43.0-75.0); Platelet Count 189 10^3/uL (150-450); Red Blood Count 4.06 10^6/uL (4.70-6.10); Red Cell Distribution Width 14.2 % (11.0-15.0); White Blood Count 12.6 10^3/uL (4.0-11.0)
[2024-10-12 06:45] LABS: BUN Creatinine Ratio 17.2; Carbon Dioxide 25.9 mmol/L (21.0-32.0); Chloride 103 mmol/L (98-107); Estimated GFR (African America >60 (>=60 mL/min/1.73m^2); Estimated GFR (Non-African Ame >60 (>=60 mL/min/1.73m^2); Glucose 185 mg/dL (74-106); Potassium 3.9 mmol/L (3.5-5.1); Sodium 138 mmol/L (136-145)
[2024-10-12 06:51] LABS: Calcium 8.6 mg/dL (8.5-10.1)
[2024-10-12] MEDS: SODIUM CHLORIDE 0.9% INHALATION 3 ML NEB 6 ML IH ×4 (07:07→23:27)
--- NOTE | 2024-10-12 08:29 | P.PN_ITS ---
Progress Note: Subjective Subjective Interval history: state his breathing is better but still having difficulty with hypoxia off of supplemental oxygen, he does not wear oxygen at home currently Exam Constitutional Vital Signs, click to edit/add: Last Vital Signs Temp 97.8 F 10/12/24 07:38 Pulse 72 10/12/24 07:38 Resp 18 10/12/24 07:38 BP 154/80 H 10/12/24 07:38 Pulse Ox 95 10/12/24 07:38 O2 Del Method Nasal Cannula 10/12/24 07:38 O2 Flow Rate 0.5 10/12/24 07:38 Progress Note: Objective Labs Labs: Short CBC 10/12/24 Range/Units 05:41 WBC 12.6 H (4.0-11.0) 10^3/uL Hgb 11.6 L (14.0-18.0) g/dL Hct 33.8 L (42.0-54.0) % Plt Count 189 (150-450) 10^3/uL BMP 10/12/24 05:41 Sodium 138 Potassium 3.9 Chloride 103 Carbon Dioxide 25.9 BUN 16.0 Creatinine 0.93 Glucose 185 H Calcium 8.6 Progress Note: A&P Assessment and Plan (1) Congestive heart failure: (2) Acute hyponatremia: (3) URI (upper respiratory infection): (4) COPD exacerbation: (5) Hypertension: Qualifiers: Hypertension type: primary hypertension Qualified Code(s): I10 - Essential (primary) hypertension (6) GERD (gastroesophageal reflux disease): Qualifiers: Esophagitis presence: without esophagitis Qualified Code(s): K21.9 - Gastro-esophageal reflux disease without esophagitis (7) BPH (benign prostatic hyperplasia): Qualifiers: Lower urinary tract symptom presence: symptoms absent Qualified Code(s): N40.0 - Benign prostatic hyperplasia without lower urinary tract symptoms Plan Admission findings: Fever (baseline temperature for him as documented with previous visits is 72.5, temperature here is 100 which would put him 2.5 degrees above baseline), tachycardia, respiratory distress, acute hypoxia with O2 sat less than 89%, low normal white blood cell count but leukocytosis and positive lactic acidosis consistent with acute sepsis secondary to acute exacerbation of COPD secondary to acute bronchitis Acute hypoxia with acute exacerbation of COPD secondary to acute bronchitis with failed outpatient treatment with ER visits x 2, failing oral medications resulting in sepsis with lactic acidosis-persistent hypoxia requiring 2 to 3 L of supplemental oxygen with unable to wean despite aggressive treatment, change patient to [facility], check CTA for alternate cause of his hypoxia Hyponatremia-continues to slowly improve Iron deficiency anemia-monitor daily diarrhea somewhat today Hypertension-stable GERD-continue with home medications History of chronic combined congestive heart failure-check on BNP sleep apnea-will complete testing as an outpatient Morbid obesity-diet management Moderate protein calorie malnutrition-diet supplement Admission status: Patient with failed outpatient treatment of acute bronchitis resulting in acute exacerbation of COPD with the failed outpatient treatment resulting in sepsis. Try to wean patient off of supplemental oxygen overnight will start patient off as observational status as there is a 50-50 chance to be discharged to home tomorrow. If unable to wean off of supplemental oxygen or improve his lung function by tomorrow, medically necessary treatment will then span 2 midnights and he will be changed to inpatient status Update to admission status: Patient with hypoxia worsened overnight time had to be bumped up to 3 L, white blood cell count normal but still with left shift co nsistent with bacterial process was unable to wean supplemental oxygen, medically necessary treatment will span 2 midnights. Inpatient status. I would suspect at least 1-2 more days ?
--- NOTE | 2024-10-12 08:30 | P.PN_ITS ---
Progress Note: Subjective Subjective Interval history: Definitely notices an improvement in his breathing now, changed to IPV treatment yesterday Exam Constitutional Vital Signs, click to edit/add: Last Vital Signs Temp 97.8 F 10/12/24 07:38 Pulse 72 10/12/24 07:38 Resp 18 10/12/24 07:38 BP 154/80 H 10/12/24 07:38 Pulse Ox 95 10/12/24 07:38 O2 Del Method Nasal Cannula 10/12/24 07:38 O2 Flow Rate 0.5 10/12/24 07:38 Documenting provider has reviewed patient's vital signs: yes Common normals: no apparent distress Chest Common normals: inspection of chest normal and palpation of chest normal Respiratory Common normals: normal respiratory effort; not clear to ascultation bilaterally Auscultation: rhonchi (Minimal rhonchi much improved); no wheezes (Resolved currently) Cardio Common normals: regular rate and regular rhythm GI Common normals: soft to palpation and non-tender; negative for Normal to inspection, nondistended, normoactive bowel sounds present (Obese) Extremity Common normals: normal to inspection and no clubbing, cyanosis or edema Progress Note: Objective Labs Labs: Short CBC 10/12/24 Range/Units 05:41 WBC 12.6 H (4.0-11.0) 10^3/uL Hgb 11.6 L (14.0-18.0) g/dL Hct 33.8 L (42.0-54.0) % Plt Count 189 (150-450) 10^3/uL BMP 10/12/24 05:41 Sodium 138 Potassium 3.9 Chloride 103 Carbon Dioxide 25.9 BUN 16.0 Creatinine 0.93 Glucose 185 H Calcium 8.6 Progress Note: A&P Assessment and Plan (1) Congestive heart failure: (2) Acute hyponatremia: (3) URI (upper respiratory infection): (4) COPD exacerbation: (5) Hypertension: Qualifiers: Hypertension type: primary hypertension Qualified Code(s): I10 - Essential (primary) hypertension (6) GERD (gastroesophageal reflux disease): Qualifiers: Esophagitis presence: without esophagitis Qualified Code(s): K21.9 - Gastro-esophageal reflux disease without esophagitis (7) BPH (benign prostatic hyperplasia): Qualifiers: Lower urinary tract symptom presence: symptoms absent Qualified Code(s): N40.0 - Benign prostatic hyperplasia without lower urinary tract sympto ms Plan Admission findings: Fever (baseline temperature for him as documented with previous visits is 72.5, temperature here is 100 which would put him 2.5 degrees above baseline), tachycardia, respiratory distress, acute hypoxia with O2 sat less than 89%, low normal white blood cell count but leukocytosis and positive lactic acidosis consistent with acute sepsis secondary to acute exacerbation of COPD secondary to acute bronchitis Acute hypoxia with acute exacerbation of COPD secondary to multifocal pneumonia noted on CT scan with failed outpatient treatment with ER visits x 2, failing oral medications resulting in sepsis with lactic acidosis-hypoxia finally improving with IPV treatments, adjust back his steroids today, also white blood cell count improved from 19,000 down to 12,000 with change in antibiotics to Zosyn Hyponatremia-resolved to normal Iron deficiency anemia-Down slightly today Hypertension-stable GERD-continue with home medications History of chronic combined congestive heart failure-check on BNP sleep apnea-will complete testing as an outpatient Morbid obesity-diet management Moderate protein calorie malnutrition-diet supplement Admission status: Patient with failed outpatient treatment of acute bronchitis resulting in acute exacerbation of COPD with the failed outpatient treatment resulting in sepsis. Try to wean patient off of supplemental oxygen overnight will start patient off as observational status as there is a 50-50 chance to be discharged to home tomorrow. If unable to wean off of supplemental oxygen or improve his lung function by tomorrow, medically necessary treatment will then span 2 midnights and he will be changed to inpatient status Update to admission status: Patient with hypoxia worsened overnight time had to be bumped up to 3 L, white blood cell count normal but still with left shift consistent with bacterial process was unable to wean supplemental oxygen, medically necessary treatment will span 2 midnights. Inpatient status. Oxygenation finally improving, I suspect 1 more day to improve white blood cell count, maintain supplemental oxygen off of that at bedtime as that is his b aseline ?
[2024-10-12] MEDS: POLYETHYLENE GLYCOL 3350 17 GM POWDER PACKET PO (08:46)
[2024-10-12] MEDS: CARVEDILOL 6.25 MG TABLET PO ×2 (08:46→21:01)
[2024-10-12] MEDS: PANTOPRAZOLE SODIUM 40 MG TABLET.DR PO (08:46)
[2024-10-12] MEDS: FUROSEMIDE 40 MG TABLET PO (08:46)
[2024-10-12] MEDS: FLUTICASONE PROPIONATE 50 MCG NASAL SPRAY 2 SPRAY NS (08:47)
--- NOTE | 2024-10-12 11:23 | RESP.RT ---
taken down to room air
[2024-10-12] MEDS: METHYLPREDNISOLONE SOD SUCC PF 125 MG/2 ML VIAL 60 MG IVP ×3 (11:57→23:02)
[2024-10-12] MEDS: LEVOFLOXACIN IN DEXTROSE 5 % 750 MG/150 ML PREMIX 100 MG IV (13:02)
[2024-10-12] MEDS: ALBUTEROL SULFATE 2.5 MG/3 ML VIAL NEB IH (19:42)
[2024-10-12] MEDS: TAMSULOSIN HCL 0.4 MG CAPSULE 0.8 MG PO (22:07)
[2024-10-13] VITALS (10 sets, daily range): BP systolic 129–159; BP diastolic 69–86; PULSE 80–93; TEMP 36.5–36.6; O2SAT 83–95
[2024-10-13] MEDS: PIPERACILLIN SODIUM/TAZOBACTAM 3.375 GM in 0.9 % SODIUM CHLORIDE 50 ML IV ×3 (01:35→18:31)
[2024-10-13] MEDS: IPRATROPIUM/ALBUTEROL SULFATE 3 ML AMPUL.NEB IH ×4 (05:11→22:20)
[2024-10-13] MEDS: METHYLPREDNISOLONE SOD SUCC PF 125 MG/2 ML VIAL 60 MG IVP (05:28)
[2024-10-13 05:36] LABS: Basophils Percent Auto 0.1 % (0.2-2.0); Hemoglobin 11.8 g/dL (14.0-18.0); Immature Granulocytes Abs Auto 0.26 10^3/uL (0.00-0.03); Lymphocytes Absolute Auto 0.7 10^3/uL (1.2-3.8); Lymphocytes Percent Auto 5.7 % (20.5-60.0); Mean Corpuscular HGB Conc 34.7 g/dL (29.9-35.2); Mean Corpuscular Hemoglobin 28.9 pg (25.9-34.0); Mean Corpuscular Volume 83.3 fL (80.0-94.0); Monocytes Absolute Auto 0.7 10^3/uL (0.3-0.8); Monocytes Percent Auto 5.5 % (1.7-12.0); Neutrophils Absolute Auto 11.2 10^3/uL (1.4-6.5); Neutrophils Percent Auto 86.7 % (43.0-75.0); Platelet Count 197 10^3/uL (150-450); Red Blood Count 4.08 10^6/uL (4.70-6.10); Red Cell Distribution Width 14.4 % (11.0-15.0); White Blood Count 12.9 10^3/uL (4.0-11.0)
[2024-10-13 05:50] LABS: Anion Gap 12.6; Calcium 8.5 mg/dL (8.5-10.1); Carbon Dioxide 27.2 mmol/L (21.0-32.0); Chloride 104 mmol/L (98-107); Estimated GFR (African America >60 (>=60 mL/min/1.73m^2); Estimated GFR (Non-African Ame >60 (>=60 mL/min/1.73m^2); Glucose 194 mg/dL (74-106); Potassium 3.8 mmol/L (3.5-5.1); Sodium 140 mmol/L (136-145)
--- NOTE | 2024-10-13 06:12 | P.PN_ITS ---
Progress Note: Subjective Subjective Interval history: Definitely notices an improvement in his breathing now, changed to IPV treatment yesterday Exam Constitutional Vital Signs, click to edit/add: Last Vital Signs Temp 98 F 10/13/24 03:00 Pulse 87 10/13/24 05:13 Resp 18 10/13/24 05:13 BP 139/75 10/13/24 03:00 Pulse Ox 95 10/13/24 05:13 O2 Del Method Nasal Cannula 10/13/24 05:13 O2 Flow Rate 2 10/13/24 05:13 Progress Note: Objective Labs Labs: Short CBC 10/12/24 10/13/24 Range/Units 05:41 05:17 WBC 12.6 H 12.9 H (4.0-11.0) 10^3/uL Hgb 11.6 L 11.8 L (14.0-18.0) g/dL Hct 33.8 L 34.0 L (42.0-54.0) % Plt Count 189 197 (150-450) 10^3/uL BMP 10/12/24 10/13/24 05:41 05:17 Sodium 138 140 Potassium 3.9 3.8 Chloride 103 104 Carbon Dioxide 25.9 27.2 BUN 16.0 18.0 Creatinine 0.93 1.06 Glucose 185 H 194 H Calcium 8.6 8.5 Progress Note: A&P Assessment and Plan (1) Congestive heart failure: (2) Acute hyponatremia: (3) URI (upper respiratory infection): (4) COPD exacerbation: (5) Hypertension: Qualifiers: Hypertension type: primary hypertension Qualified Code(s): I10 - Essential (primary) hypertension (6) GERD (gastroesophageal reflux disease): Qualifiers: Esophagitis presence: without esophagitis Qualified Code(s): K21.9 - Gastro-esophageal reflux disease without esophagitis (7) BPH (benign prostatic hyperplasia): Qualifiers: Lower urinary tract symptom presence: symptoms absent Qualified Code(s): N40.0 - Benign prostatic hyperplasia without lower urinary tract symptoms Plan Admission findings: Fever (baseline temperature for him as documented with previous visits is 72.5, temperature here is 100 which would put him 2.5 degrees above baseline), tachycardia, respiratory distress, acute hypoxia with O2 sat less than 89%, low normal white blood cell count but leukocytosis and positive lactic acidosis consistent with acute sepsis secondary to acute exacerbation of COPD secondary to acute bronchitis Acute hypoxia with acute exacerbation of COPD secondary to multifocal pneumonia noted on CT scan with failed outpatient treatment with ER visits x 2, failing oral medications resulting in sepsis with lactic acidosis-hypoxia finally improving with IPV treatments, adjust back his steroids today, also white blood cell count improved from 19,000 down to 12,000 with change in antibiotics to Zosyn Hyponatremia-resolved to normal Iron deficiency anemia-Down slightly today Hypertension-stable GERD-continue with home medications History of chronic combined congestive heart failure-check on BNP sleep apnea-will complete testing as an outpatient Morbid obesity-diet management Moderate protein calorie malnutrition-diet supplement Admission status: Patient with failed outpatient treatment of acute bronchitis resulting in acute exacerbation of COPD with the failed outpatient treatment resulting in sepsis. Try to wean patient off of supplemental oxygen overnight will start patient off as observational status as there is a 50-50 chance to be discharged to home tomorrow. If unable to wean off of supplemental oxygen or improve his lung function by tomorrow, medically necessary treatment will then span 2 midnights and he will be changed to inpatient status Update to admission status: Patient with hypoxia worsened overnight time had to be bumped up to 3 L, white blood cell count normal but still with left shift consistent with bacterial process was unable to wean supplemental oxygen, medically necessary treatment will span 2 midnights. Inpatient status. Oxygenation finally improving, I suspect 1 more day to improve white blood cell count, maintain supplemental oxygen off of that at bedtime as that is his baseline ?
[2024-10-13] MEDS: PREDNISONE 20 MG TABLET 40 MG PO (07:30)
[2024-10-13] MEDS: BENZONATATE 100 MG CAPSULE 200 MG PO ×2 (07:30→21:00)
[2024-10-13] MEDS: FUROSEMIDE 40 MG/4 ML VIAL IVP ×2 (07:30→16:44)
--- NOTE | 2024-10-13 08:20 | CM.NOTE ---
Rounds made with Dr. Klein. Dr. Klein reviews findings with [facility]. Potential need for oxygen..will do walk test. Potential discharge later today.
--- NOTE | 2024-10-13 09:09 | XR_ITS ---
The [address] [address] Patient Name: DEMARCUS CALDERON MRN: [id number] date: 1955 Sex: M Assigned Patient Location: [place] Current Patient Location: Accession/Order Number: [id number] Exam Date: 10/13/2024 09:12 Report Date: 10/13/2024 09:13 At the request of: RK PATE MD Procedure: XR chest 2V XR chest 2V 10/13/2024 9:09 AM SIGNS AND SYMPTOMS: ^follow up pneumonia ^N PROTOCOL: Frontal and lateral radiographs of the chest COMPARISON: 10/11/2024 FINDINGS: The trachea is midline. The heart and mediastinal structures are within normal limits. Patchy airspace opacities are redemonstrated bilaterally consistent with a history of pneumonia. The bony thorax is intact. XR/XR chest 2V IMPRESSION: Patchy airspace opacities are redemonstrated bilaterally consistent with a history of pneumonia. Impression dictated by: Jb Garber M.D. 10/13/2024 9:13 AM [facility] Electronically authenticated by: [id number] Y Date: 10/13/2024 09:13
--- NOTE | 2024-10-13 09:26 | P.DS_ITS ---
DS: Providers Provider Date of admission: 10/10/24 07:54 Primary care physician: Torres Klein MD Consults: 10/09/24 14:26 Consult to Pharmacy Routine Consulting Provider: Reason for consultation: Please [place] me when Med Rec is Updated Has provider been notified: No Occupational Therapy Eval and Treat Routine Reason for consultation: Only if needed for Rehab Has provider been notified: No Physical Therapy Eval and Treat Routine Reason for consultation: Eval and Treat Has provider been notified: No DS: Diagnosis Discharge Diagnosis (1) Congestive heart failure: (2) Acute hyponatremia: (3) URI (upper respiratory infection): (4) COPD exacerbation: (5) Hypertension: Qualifiers: Hypertension type: primary hypertension Qualified Code(s): I10 - Essential (primary) hypertension (6) GERD (gastroesophageal reflux disease): Qualifiers: Esophagitis presence: without esophagitis Qualified Code(s): K21.9 - Gastro-esophageal reflux disease without esophagitis (7) BPH (benign prostatic hyperplasia): Qualifiers: Lower urinary tract symptom presence: symptoms absent Qualified Code(s): N40.0 - Benign prostatic hyperplasia without lower urinary tract symptoms Plan Admission findings: Fever (baseline temperature for him as documented with previous visits is 72.5, temperature here is 100 which would put him 2.5 degrees above baseline), tachycardia, respiratory distress, acute hypoxia with O2 sat less than 89%, low normal white blood cell count but leukocytosis and positive lactic acidosis consistent with acute sepsis secondary to acute exacerbation of COPD secondary to acute bronchitis Acute hypoxia with acute exacerbation of COPD secondary to multifocal pneumonia noted on CT scan with failed outpatient treatment with ER visits x 2, failing oral medications resulting in sepsis with lactic acidosis-hypoxia finally improving with IPV treatments, adjust back his steroids today, also white blood cell count improved from 19,000 down to 12,000 with change in antibiotics to Zosyn Hyponatremia-resolved to normal Iron deficiency anemia-Down slightly today Hypertension-stable GERD-continue with home medications History of chronic combined congestive heart failure-check on BNP sleep apnea-will complete testing as an outpatient Morbid obesity-diet management Moderate protein calorie malnutrition-diet supplement Admission status: Patient with failed outpatient treatment of acute bronchitis resulting in acute exacerbation of COPD with the failed outpatient treatment resulting in sepsis. Try to wean patient off of supplemental oxygen overnight will start patient off as observational status as there is a 50-50 chance to be discharged to home tomorrow. If unable to wean off of supplemental oxygen or improve his lung function by tomorrow, medically necessary treatment will then span 2 midnights and he will be changed to inpatient status Update to admission status: Patient with hypoxia worsened overnight time had to be bumped up to 3 L, white blood cell count normal but still with left shift consistent with bacterial process was unable to wean supplemental oxygen, medically necessary treatment will span 2 midnights. Inpatient status. Oxygenation finally improving, I suspect 1 more day to improve white blood cell count, maintain supplemental oxygen off of that at bedtime as that is his baseline ? DS: Summary Hospital Course Hospital Course: Patient met with acute exacerbation of COPD which was presumed to be secondary to acute bronchitis, condition really did not improve significantly, CTA was obtained to rule out pulmonary embolism as a cause for his persistent hypoxia but that was negative but the CT scan did confirm bilateral pneumonia. BNP was normal at that time, but BNP is elevated today giving 1 dose of Lasix this morning, if we can get him weaned off back down to nasal cannula or feeling his walk test he can be discharged home in improving condition. Medications see list. Follow-up with us in the office within the next few days, and is set up for outpatient sleep study Time Spent with Patient Time attestation: Total time spent providing and/or coordinating discharge services: Exam Constitutional Vital Signs, click to edit/add: Last Vital Signs Temp 98 F 10/13/24 06:00 Pulse 87 10/13/24 06:00 Resp 20 10/13/24 07:39 BP 139/75 10/13/24 06:00 Pulse Ox 95 10/13/24 06:00 O2 Del Method Nasal Cannula 10/13/24 06:00 O2 Flow Rate 2 10/13/24 06:00 Documenting provider has reviewed patient's vital signs: yes Common normals: no apparent distress Respiratory Common normals: normal respiratory effort and no retractions Auscultation: rhonchi (Persisting but improved from admission) and wheezes (Faint wheeze this morning still significantly improved from admission) Cardio Common normals: regular rate and regular rhythm GI Common normals: soft to palpation and non-tender; negative for Normal to inspection, nondistended, normoactive bowel sounds present (Obese) Common normals: CVA tenderness present Extremity Common normals: abnormal to inspection (1+ edema this morning) DS: Data Data Completed and Pending Labs on day of discharge: Labs from last 24 hours 10/13/24 05:17 WBC 12.9 H RBC 4.08 L Hgb 11.8 L Hct 34.0 L MCV 83.3 MCH 28.9 MCHC 34.7 RDW 14.4 Plt Count 197 MPV 10.0 Neut % (Auto) 86.7 H Lymph % (Auto) 5.7 L [place] % (Auto) 5.5 Eos % (Auto) 0.0 L Baso % (Auto) 0.1 L Neut # (Auto) 11.2 H Lymph # (Auto) 0.7 L [place] # (Auto) 0.7 Eos # (Auto) 0.0 Baso # (Auto) 0.0 Abs Immat Gran (auto) 0.26 H Imm/Tot Granulo (auto) 2.0 H Sodium 140 Potassium 3.8 Chloride 104 Carbon Dioxide 27.2 Anion Gap 12.6 BUN 18.0 Creatinine 1.06 Est GFR ( Amer) >60 Est GFR (Non-Af Amer) >60 BUN/Creatinine Ratio 17.0 Glucose 194 H Calcium 8.5 NT-Pro-B Natriuret Pep 1329.0 H* Preliminary micro results at discharge 10/10/24 17:16 White Blood Cells - Preliminary Sputum - Expectorated Sputum Epithelial Cells - Preliminary Sputum Result 1 - Preliminary 10/09/24 11:43 Blood Culture Result 2 - Preliminary Blood NO GROWTH AT 36-48 HOURS. FINAL TO FOLLOW. 10/09/24 11:34 Blood Culture Result 1 - Preliminary Blood NO GROWTH AT 36-48 HOURS. FINAL TO FOLLOW. Discharge Plan Discharge Disposition: Home, Self-Care Condition: Fair Discharge Medications: New cetirizine 10 mg Tablet 10 mg PO QD Qty: 30 11RF fluticasone propionate 50 mcg/actuation [place],Suspension 2 spray intranasal QD Qty: 16 11RF prednisone 10 mg tablet 40 mg PO DAILY Qty: 32 0RF Rx Instructions: 4/day for 3 days, 3/day for 3 days, 2/day for 3 days, 1/day for 3 days, 1/2 /day for 4 days amoxicillin-pot clavulanate 875-125 mg tablet 1 tab PO Q12H Qty: 20 0RF montelukast [Singulair] 10 mg tablet 10 mg PO DAILY Qty: 30 11RF carvedilol [Coreg] 12.5 mg tablet 12.5 mg PO BID Qty: 60 11RF Rx Instructions: must administer with a meal/food Continued albuterol sulfate [Ventolin HFA] 90 mcg/actuation HFA aerosol inhaler 2 inh inhalation Q6H PRN (Reason: shortness of breath or wheezing) Qty: 6.7 0RF azithromycin [Zithromax Z-Santos] 250 mg tablet See Rx Instructions .ROUTE .COMPLEX Qty: 6 0RF Patient Comments: 10/06/24-10/10/24 Rx Instructions: For 250 mg dose pack: take 500 mg today (day 1), then 250 mg for 4 days (days 2-5) tamsulosin 0.4 mg capsule 0.8 mg PO .qhs omeprazole 20 mg capsule,delayed release(DR/EC) 20 mg PO Q24H PRN (Reason: heartburn) ipratropium-albuterol 0.5 mg-3 mg(2.5 mg base)/3 mL solution for nebulization 3 ml inhalation Q6H PRN (Reason: shortness of breath) Qty: 90 0RF fluticasone propion-salmeterol [Advair HFA] 115-21 mcg/actuation HFA aerosol inhaler 2 puff INHALATION BID furosemide [Lasix] 40 mg tablet 40 mg PO DAILY PRN (Reason: edema) Discontinued carvedilol 6.25 mg tablet 6.25 mg PO Q12H Print Language: Danish Forms: Portal Instructions
[2024-10-13] MEDS: CARVEDILOL 6.25 MG TABLET 12.5 MG PO (09:35)
[2024-10-13] MEDS: MONTELUKAST SODIUM 10 MG TABLET PO (09:35)
[2024-10-13] MEDS: CETIRIZINE HCL 10 MG TABLET PO (09:35)
[2024-10-13] MEDS: POLYETHYLENE GLYCOL 3350 17 GM POWDER PACKET PO (09:35)
[2024-10-13] MEDS: FLUTICASONE PROPIONATE 50 MCG NASAL SPRAY 2 SPRAY NS (09:36)
[2024-10-13] MEDS: 0.9 % SODIUM CHLORIDE 250 ML 10 ML IV (09:37)
--- NOTE | 2024-10-13 10:05 | SWNOTE1 ---
Pt will need home oxygen. SW stopped in and spoke with pt in regards to home oxygen. Pt is aware that he will need it. SW advised pt that his insurance is not in network with many DME companies and that SW does think that [facility] is in network. Pt did voice that he has , SW is aware of this as well. Pt does not have preference on DME company. SW had nurse sign walk test and faxed walk test to Dr. Klein for him to sign as well.
--- NOTE | 2024-10-13 12:50 | SWNOTE1 ---
SW waiting for face to face documentation by physician to send home oxygen referral. SW did message doctor, but at this time physician unsure if pt is going home.
--- NOTE | 2024-10-13 14:02 | SWNOTE1 ---
2nd notice of Important Message from Medicare provided to pt, no questions at this time.
[2024-10-13] MEDS: LEVOFLOXACIN IN DEXTROSE 5 % 750 MG/150 ML PREMIX 100 MG IV (14:48)
[2024-10-13] MEDS: SODIUM CHLORIDE 0.9% INHALATION 3 ML NEB 6 ML IH (16:18)
[2024-10-13] MEDS: CARVEDILOL 12.5 MG TABLET PO (21:00)
[2024-10-13] MEDS: TAMSULOSIN HCL 0.4 MG CAPSULE 0.8 MG PO (21:01)
[2024-10-14] VITALS (11 sets, daily range): BP systolic 102–153; BP diastolic 56–80; PULSE 72–90; TEMP 36.6–36.9; O2SAT 88–97; BMI 33.1
[2024-10-14] MEDS: PIPERACILLIN SODIUM/TAZOBACTAM 3.375 GM in 0.9 % SODIUM CHLORIDE 50 ML IV ×3 (01:27→17:07)
[2024-10-14] MEDS: IPRATROPIUM/ALBUTEROL SULFATE 3 ML AMPUL.NEB IH ×4 (05:17→22:23)
[2024-10-14] MEDS: SODIUM CHLORIDE 0.9% INHALATION 3 ML NEB 6 ML IH ×3 (05:17→16:02)
[2024-10-14 05:35] LABS: Basophils Percent Auto 0.3 % (0.2-2.0); Eosinophils Percent Auto 0.2 % (0.9-7.0); Hematocrit 36.2 % (42.0-54.0); Hemoglobin 12.4 g/dL (14.0-18.0); Immature Granulocytes Pct Auto 2.6 % (0.0-0.5); Lymphocytes Absolute Auto 1.7 10^3/uL (1.2-3.8); Lymphocytes Percent Auto 14.9 % (20.5-60.0); Mean Corpuscular HGB Conc 34.3 g/dL (29.9-35.2); Mean Corpuscular Hemoglobin 28.6 pg (25.9-34.0); Mean Corpuscular Volume 83.4 fL (80.0-94.0); Mean Platelet Volume 9.9 fL (9.5-13.5); Monocytes Absolute Auto 0.7 10^3/uL (0.3-0.8); Monocytes Percent Auto 6.4 % (1.7-12.0); Neutrophils Absolute Auto 8.8 10^3/uL (1.4-6.5); Neutrophils Percent Auto 75.6 % (43.0-75.0); Platelet Count 200 10^3/uL (150-450); Red Blood Count 4.34 10^6/uL (4.70-6.10); Red Cell Distribution Width 14.2 % (11.0-15.0); White Blood Count 11.6 10^3/uL (4.0-11.0)
[2024-10-14 05:47] LABS: Anion Gap 12.6; BUN Creatinine Ratio 21.2; Carbon Dioxide 29.8 mmol/L (21.0-32.0); Chloride 101 mmol/L (98-107); Estimated GFR (African America >60 (>=60 mL/min/1.73m^2); Estimated GFR (Non-African Ame >60 (>=60 mL/min/1.73m^2); Glucose 140 mg/dL (74-106); Potassium 3.4 mmol/L (3.5-5.1); Sodium 140 mmol/L (136-145)
--- NOTE | 2024-10-14 06:43 | P.PN_ITS ---
Progress Note: Subjective Subjective Interval history: Patient still with significant dyspnea, cough persisting, still feels more congested and stressed, different than admission Exam Constitutional Vital Signs, click to edit/add: Last Vital Signs Temp 97.9 F 10/14/24 05:01 Pulse 90 10/14/24 05:17 Resp 20 10/14/24 05:17 BP 153/80 H 10/14/24 05:01 Pulse Ox 91 L 10/14/24 05:17 O2 Del Method Nasal Cannula 10/14/24 05:17 O2 Flow Rate 1 10/14/24 05:17 Documenting provider has reviewed patient's vital signs: yes Common normals: no apparent distress Chest Common normals: inspection of chest normal and palpation of chest normal Respiratory Common normals: normal respiratory effort; not clear to ascultation bilaterally Auscultation: rales and rhonchi (Minimal rhonchi much improved); no wheezes (Resolved currently) Cardio Common normals: regular rate and regular rhythm GI Common normals: soft to palpation and non-tender; negative for Normal to inspection, nondistended, normoactive bowel sounds present (Obese) Extremity Common normals: normal to inspection and no clubbing, cyanosis or edema Progress Note: Objective Labs Labs: Short CBC 10/14/24 Range/Units 05:12 WBC 11.6 H (4.0-11.0) 10^3/uL Hgb 12.4 L (14.0-18.0) g/dL Hct 36.2 L (42.0-54.0) % Plt Count 200 (150-450) 10^3/uL BMP 10/14/24 05:12 Sodium 140 Potassium 3.4 L Chloride 101 Carbon Dioxide 29.8 BUN 22.0 H Creatinine 1.04 Glucose 140 H Calcium 9.0 Progress Note: A&P Assessment and Plan (1) Congestive heart failure: (2) Acute hyponatremia: (3) URI (upper respiratory infection): (4) COPD exacerbation: (5) Hypertension: Qualifiers: Hypertension type: primary hypertension Qualified Code(s): I10 - Essential (primary) hypertension (6) GERD (gastroesophageal reflux disease): Qualifiers: Esophagitis presence: without esophagitis Qualified Code(s): K21.9 - Gastro-esophageal reflux disease without esophagitis (7) BPH (benign prostatic hyperplasia): Qualifiers: Lower urinary tract symptom presence: symptoms absent Qualified Code(s): N40.0 - Benign prostatic hyperplasia without lower urinary tract symptoms Plan Admission findings: Fever (baseline temperature for him as documented with previous visits is 72.5, temperature here is 100 which would put him 2.5 degrees above baseline), tachycardia, respiratory distress, acute hypoxia with O2 sat less than 89%, low normal white blood cell count but leukocytosis and positive lactic acidosis consistent with acute sepsis secondary to acute exacerbation of COPD secondary to acute bronchitis Acute hypoxia with acute exacerbation of COPD secondary to multifocal pneumonia noted on CT scan with failed outpatient treatment with ER visits x 2, failing oral medications resulting in sepsis with lactic acidosis-still with significant hypoxia, was able to be weaned but needed placed back on 6 nasal cannula O2, at this point sounds more like fluid overload likely secondary to the steroids secondary to the treatment for his COPD and pneumonia. Suspect patient will still need supplemental oxygen at home he did fail the ambulatory oxygenation test with sats in the mid s Hyponatremia-resolved to normal Iron deficiency anemia-Down slightly today Hypertension-stable GERD-continue with home medications History of chronic combined congestive heart failure-elevated today, diuretics Lasix IV x 2 sleep apnea-will need home oxygen for his COPD as outlined above, this will benefit him at nighttime facilities out type patient sleep study Morbid obesity-diet management Moderate protein calorie malnutrition-diet supplement Admission status: Patient with failed outpatient treatment of acute bronchitis resulting in acute exacerbation of COPD with the failed outpatient treatment resulting in sepsis. Try to wean patient off of supplemental oxygen overnight will start patient off as observational status as there is a 50-50 chance to be discharged to home tomorrow. If unable to wean off of supplemental oxygen or improve his lung function by tomorrow, medically necessary treatment will then span 2 midnights and he will be changed to inpatient status Update to admission status: Patient with hypoxia worsened overnight time had to be bumped up to 3 L, white blood cell count normal but still with left shift consistent with bacterial process was unable to wean supplemental oxygen, medically necessary treatment will span 2 midnights. Inpatient status. Fluid overload worse today, diuretics, possible discharge tomorrow ?
--- NOTE | 2024-10-14 06:46 | P.DS_ITS ---
DS: Providers Provider Date of admission: 10/10/24 07:54 Primary care physician: Torres Klein MD Consults: 10/09/24 14:26 Consult to Pharmacy Routine Consulting Provider: Reason for consultation: Please [place] me when Med Rec is Updated Has provider been notified: No Occupational Therapy Eval and Treat Routine Reason for consultation: Only if needed for Rehab Has provider been notified: No Physical Therapy Eval and Treat Routine Reason for consultation: Eval and Treat Has provider been notified: No DS: Diagnosis Discharge Diagnosis (1) Congestive heart failure: (2) Acute hyponatremia: (3) URI (upper respiratory infection): (4) COPD exacerbation: (5) Hypertension: Qualifiers: Hypertension type: primary hypertension Qualified Code(s): I10 - Essential (primary) hypertension (6) GERD (gastroesophageal reflux disease): Qualifiers: Esophagitis presence: without esophagitis Qualified Code(s): K21.9 - Gastro-esophageal reflux disease without esophagitis (7) BPH (benign prostatic hyperplasia): Qualifiers: Lower urinary tract symptom presence: symptoms absent Qualified Code(s): N40.0 - Benign prostatic hyperplasia without lower urinary tract symptoms Plan Admission findings: Fever (baseline temperature for him as documented with previous visits is 72.5, temperature here is 100 which would put him 2.5 degrees above baseline), tachycardia, respiratory distress, acute hypoxia with O2 sat less than 89%, low normal white blood cell count but leukocytosis and positive lactic acidosis consistent with acute sepsis secondary to acute exacerbation of COPD secondary to acute bronchitis Acute hypoxia with acute exacerbation of COPD secondary to multifocal pneumonia noted on CT scan with failed outpatient treatment with ER visits x 2, failing oral medications resulting in sepsis with lactic acidosis-dyspnea persisting secondary to fluid overload but overall improved Hyponatremia-resolved to normal Iron deficiency anemia-Down slightly today Hypertension-stable GERD-continue with home medications History of chronic combined congestive heart failure with acute combined congestive heart failure secondary to fluid overload secondary to steroid use for the treatment as outlined above-improving at discharge sleep apnea-will need home oxygen for his COPD as outlined above, this will benefit him at nighttime facilities out type patient sleep study Morbid obesity-diet management Hypokalemia-follows outpatient Moderate protein calorie malnutrition-diet supplement Admission status: Patient with failed outpatient treatment of acute bronchitis resulting in acute exacerbation of COPD with the failed outpatient treatment resulting in sepsis. Try to wean patient off of supplemental oxygen overnight will start patient off as observational status as there is a 50-50 chance to be discharged to home tomorrow. If unable to wean off of supplemental oxygen or improve his lung function by tomorrow, medically necessary treatment will then span 2 midnights and he will be changed to inpatient status Update to admission status: Patient with hypoxia worsened overnight time had to be bumped up to 3 L, white blood cell count normal but still with left shift consistent with bacterial process was unable to wean supplemental oxygen, medically necessary treatment will span 2 midnights. Inpatient status. Fluid overload worse today, diuretics, possible discharge tomorrow DS: Summary Hospital Course Hospital Course: Patient met with acute exacerbation of COPD which was presumed to be secondary to acute bronchitis, condition really did not improve significantly, CTA was obtained to rule out pulmonary embolism as a cause for his persistent hypoxia but that was negative but the CT scan did confirm bilateral pneumonia. BNP was normal at that time, but BNP is elevated today treated with IV Lasix x 2 yesterday repeating dose this morning, if patient ambulating well in the hallway, likely will need home oxygen, this will help him with his sleep apnea until final testing can be completed, significant hypoxia with ambulation with O2 sats in the mid 80s. If ambulating without significant dyspnea today, will be discharged home in improving condition. Medication status. Follow-up with our office within this week. Time Spent with Patient Time attestation: Total time spent providing and/or coordinating discharge services: Exam Constitutional Vital Signs, click to edit/add: Last Vital Signs Temp 97.9 F 10/14/24 05:01 Pulse 90 10/14/24 05:17 Resp 20 10/14/24 05:17 BP 153/80 H 10/14/24 05:01 Pulse Ox 91 L 10/14/24 05:17 O2 Del Method Nasal Cannula 10/14/24 05:17 O2 Flow Rate 1 10/14/24 05:17 Documenting provider has reviewed patient's vital signs: yes Common normals: no apparent distress Chest Common normals: inspection of chest normal and palpation of chest normal Respiratory Common normals: normal respiratory effort; not clear to ascultation bilaterally Auscultation: rales (Minimal rales in bases improved); no rhonchi (Minimal rhonchi much improved) and no wheezes (Resolved currently) Cardio Common normals: regular rate and regular rhythm GI Common normals: soft to palpation and non-tender; negative for Normal to inspection, nondistended, normoactive bowel sounds present (Obese) Extremity Common normals: normal to inspection and no clubbing, cyanosis or edema DS: Data Data Completed and Pending Labs on day of discharge: Labs from last 24 hours 10/14/24 05:12 WBC 11.6 H RBC 4.34 L Hgb 12.4 L Hct 36.2 L MCV 83.4 MCH 28.6 MCHC 34.3 RDW 14.2 Plt Count 200 MPV 9.9 Neut % (Auto) 75.6 H Lymph % (Auto) 14.9 L [place] % (Auto) 6.4 Eos % (Auto) 0.2 L Baso % (Auto) 0.3 Neut # (Auto) 8.8 H Lymph # (Auto) 1.7 [place] # (Auto) 0.7 Eos # (Auto) 0.0 Baso # (Auto) 0.0 Abs Immat Gran (auto) 0.30 H Imm/Tot Granulo (auto) 2.6 H Sodium 140 Potassium 3.4 L Chloride 101 Carbon Dioxide 29.8 Anion Gap 12.6 BUN 22.0 H Creatinine 1.04 Est GFR ( Amer) >60 Est GFR (Non-Af Amer) >60 BUN/Creatinine Ratio 21.2 Glucose 140 H Calcium 9.0 NT-Pro-B Natriuret Pep 1471.0 H* Preliminary micro results at discharge 10/10/24 17:16 White Blood Cells - Preliminary Sputum - Expectorated Sputum Epithelial Cells - Preliminary Sputum Result 1 - Preliminary 10/09/24 11:43 Blood Culture Result 2 - Preliminary Blood NO GROWTH AT 36-48 HOURS. FINAL TO FOLLOW. 10/09/24 11:34 Blood Culture Result 1 - Preliminary Blood NO GROWTH AT 36-48 HOURS. FINAL TO FOLLOW. Discharge Plan Discharge Disposition: Home, Self-Care Condition: Fair Discharge Medications: New cetirizine 10 mg Tablet 10 mg PO QD Qty: 30 11RF fluticasone propionate 50 mcg/actuation [place],Suspension 2 spray intranasal QD Qty: 16 11RF prednisone 10 mg tablet 40 mg PO DAILY Qty: 32 0RF Rx Instructions: 4/day for 3 days, 3/day for 3 days, 2/day for 3 days, 1/day for 3 days, 1/2 /day for 4 days amoxicillin-pot clavulanate 875-125 mg tablet 1 tab PO Q12H Qty: 20 0RF montelukast [Singulair] 10 mg tablet 10 mg PO DAILY Qty: 30 11RF carvedilol [Coreg] 12.5 mg tablet 12.5 mg PO BID Qty: 60 11RF Rx Instructions: must administer with a meal/food Continued albuterol sulfate [Ventolin HFA] 90 mcg/actuation HFA aerosol inhaler 2 inh inhalation Q6H PRN (Reason: shortness of breath or wheezing) Qty: 6.7 0RF azithromycin [Zithromax Z-Santos] 250 mg tablet See Rx Instructions .ROUTE .COMPLEX Qty: 6 0RF Patient Comments: 10/06/24-10/10/24 Rx Instructions: For 250 mg dose pack: take 500 mg today (day 1), then 250 mg for 4 days (days 2-5) tamsulosin 0.4 mg capsule 0.8 mg PO .qhs omeprazole 20 mg capsule,delayed release(DR/EC) 20 mg PO Q24H PRN (Reason: heartburn) ipratropium-albuterol 0.5 mg-3 mg(2.5 mg base)/3 mL solution for nebulization 3 ml inhalation Q6H PRN (Reason: shortness of breath) Qty: 90 0RF fluticasone propion-salmeterol [Advair HFA] 115-21 mcg/actuation HFA aerosol inhaler 2 puff INHALATION BID furosemide [Lasix] 40 mg tablet 40 mg PO DAILY PRN (Reason: edema) Discontinued carvedilol 6.25 mg tablet 6.25 mg PO Q12H Print Language: Greenlandic Forms: Portal Instructions
--- NOTE | 2024-10-14 08:13 | CM.NOTE ---
Rounds made with Dr. Klein. Potential plan for discharge to home later today.
[2024-10-14] MEDS: MONTELUKAST SODIUM 10 MG TABLET PO (08:20)
[2024-10-14] MEDS: POLYETHYLENE GLYCOL 3350 17 GM POWDER PACKET PO (08:20)
[2024-10-14] MEDS: FLUTICASONE PROPIONATE 50 MCG NASAL SPRAY 2 SPRAY NS (08:20)
[2024-10-14] MEDS: PREDNISONE 20 MG TABLET 40 MG PO (08:20)
[2024-10-14] MEDS: CARVEDILOL 12.5 MG TABLET PO ×2 (08:20→21:26)
[2024-10-14] MEDS: CETIRIZINE HCL 10 MG TABLET PO (08:20)
[2024-10-14] MEDS: POTASSIUM CHLORIDE 10 MEQ ER TABLET 20 MEQ PO ×2 (08:20→21:26)
[2024-10-14] MEDS: FUROSEMIDE 40 MG/4 ML VIAL IVP (08:20)
--- NOTE | 2024-10-14 09:16 | SWNOTE1 ---
Pt is possibly discharging today. SW faxed face sheet, walk test, script, and draft form of dc summary to [facility].
[2024-10-14] MEDS: 0.9 % SODIUM CHLORIDE 250 ML 10 ML IV (09:37)
--- NOTE | 2024-10-14 10:38 | SWNOTE1 ---
[facility] called and they are not in network. SW faxed oxygen referral to [facility].
--- NOTE | 2024-10-14 11:59 | SWNOTE1 ---
[facility] called and they received referral and are able to supply home oxygen at discharge. If pt does not discharge today, a new script and walk test are needed.
[2024-10-14] MEDS: LEVOFLOXACIN IN DEXTROSE 5 % 750 MG/150 ML PREMIX 100 MG IV (13:14)
[2024-10-14] MEDS: BUMETANIDE 10 MG in 0.9 % SODIUM CHLORIDE 160 ML 20 MG IV (13:14)
--- NOTE | 2024-10-14 13:15 | P.PN_ITS ---
Progress Note: Subjective Subjective Interval history: Patient still with significant dyspnea with ambulating in the room, ambulated hallway with oxygen on 2 L 88% plastic ago Exam Constitutional Vital Signs, click to edit/add: Last Vital Signs Temp 97.9 F 10/14/24 08:20 Pulse 80 10/14/24 10:08 Resp 16 10/14/24 08:20 BP 128/71 10/14/24 08:20 Pulse Ox 90 L 10/14/24 10:08 O2 Del Method Nasal Cannula 10/14/24 10:08 O2 Flow Rate 2 10/14/24 10:08 Documenting provider has reviewed patient's vital signs: yes Common normals: no apparent distress Chest Common normals: inspection of chest normal and palpation of chest normal Respiratory Common normals: normal respiratory effort; not clear to ascultation bilaterally Auscultation: rales (Persisting in bases); no rhonchi (Minimal rhonchi much improved) and no wheezes (Resolved currently) Cardio Common normals: regular rate and regular rhythm GI Common normals: soft to palpation and non-tender; negative for Normal to inspection, nondistended, normoactive bowel sounds present (Obese) Extremity Common normals: normal to inspection and no clubbing, cyanosis or edema Progress Note: Objective Labs Labs: Short CBC 10/14/24 Range/Units 05:12 WBC 11.6 H (4.0-11.0) 10^3/uL Hgb 12.4 L (14.0-18.0) g/dL Hct 36.2 L (42.0-54.0) % Plt Count 200 (150-450) 10^3/uL BMP 10/14/24 05:12 Sodium 140 Potassium 3.4 L Chloride 101 Carbon Dioxide 29.8 BUN 22.0 H Creatinine 1.04 Glucose 140 H Calcium 9.0 Progress Note: A&P Assessment and Plan (1) Congestive heart failure: (2) Acute hyponatremia: (3) URI (upper respiratory infection): (4) COPD exacerbation: (5) Hypertension: Qualifiers: Hypertension type: primary hypertension Qualified Code(s): I10 - Essential (primary) hypertension (6) GERD (gastroesophageal reflux disease): Qualifiers: Esophagitis presence: without esophagitis Qualified Code(s): K21.9 - Gastro-esophageal reflux disease without esophagitis (7) BPH (benign prostatic hyperplasia): Qualifiers: Lower urinary tract symptom presence: symptoms absent Qualified Code(s): N40.0 - Benign prostatic hyperplasia without lower urinary tract symptoms Plan Admission findings: Fever (baseline temperature for him as documented with previous visits is 72.5, temperature here is 100 which would put him 2.5 degrees above baseline), tachycardia, respiratory distress, acute hypoxia with O2 sat less than 89%, low normal white blood cell count but leukocytosis and positive lactic acidosis consistent with acute sepsis secondary to acute exacerbation of COPD secondary to acute bronchitis Acute hypoxia with acute exacerbation of COPD secondary to multifocal pneumonia noted on CT scan with failed outpatient treatment with ER visits x 2, failing oral medications resulting in sepsis with lactic acidosis-send with significant dyspnea of the activity, O2 sat on supplemental oxygen with ambulation 88%, still appears to have some degree of fluid overload although from a pneumonia standpoint I feel his lungs are clearing. Still with some sputum production will repeat sputum culture Hyponatremia-resolved to normal Iron deficiency anemia-Down slightly today Hypertension-stable GERD-continue with home medications Acute combined congestive heart failure on top of chronic combined congestive heart failure resulting in acute hypoxia-BNP elevated previous stable check on labs, did diurese fairly well yesterday with 5 L out still appears to be in significant fluid overload with peripheral edema and rales in lungs, repeat diuresis again today but will try Bumex drip sleep apnea-will need home oxygen for his COPD as outlined above, this will benefit him at nighttime facilities out type patient sleep study Morbid obesity-diet management Moderate protein calorie malnutrition-diet supplement Admission status: Patient with failed outpatient treatment of acute bronchitis resulting in acute exacerbation of COPD with the failed outpatient treatment resulting in sepsis. Try to wean patient off of supplemental oxygen overnight will start patient off as observational status as there is a 50-50 chance to be discharged to home tomorrow. If unable to wean off of supplemental oxygen or improve his lung function by tomorrow, medically necessary treatment will then span 2 midnights and he will be changed to inpatient status Update to admission status: Patient with hypoxia worsened overnight time had to be bumped up to 3 L, white blood cell count normal but still with left shift consistent with bacterial process was unable to wean supplemental oxygen, medically necessary treatment will span 2 midnights. Still with significant acute mild congestive heart failure and fluid overload diuresing further today with Bumex drip ?
[2024-10-14] MEDS: BENZONATATE 100 MG CAPSULE 200 MG PO (21:26)
[2024-10-14] MEDS: TAMSULOSIN HCL 0.4 MG CAPSULE 0.8 MG PO (21:26)
[2024-10-14] MEDS: HYOSCYAMINE SULFATE 0.125 MG TAB.SUBL SL (23:20)
[2024-10-15] VITALS (10 sets, daily range): BP systolic 114–151; BP diastolic 69–78; PULSE 67–86; TEMP 36.3–36.7; O2SAT 90–93
[2024-10-15] MEDS: PIPERACILLIN SODIUM/TAZOBACTAM 3.375 GM in 0.9 % SODIUM CHLORIDE 50 ML IV (01:10)
[2024-10-15] MEDS: IPRATROPIUM/ALBUTEROL SULFATE 3 ML AMPUL.NEB IH ×5 (04:59→23:05)
[2024-10-15] MEDS: BENZONATATE 100 MG CAPSULE 200 MG PO ×2 (05:02→16:29)
[2024-10-15 05:40] LABS: Hematocrit 38.6 % (42.0-54.0); Hemoglobin 13.2 g/dL (14.0-18.0); Mean Corpuscular HGB Conc 34.2 g/dL (29.9-35.2); Mean Corpuscular Hemoglobin 28.4 pg (25.9-34.0); Mean Platelet Volume 9.7 fL (9.5-13.5); Platelet Count 205 10^3/uL (150-450); Red Blood Count 4.65 10^6/uL (4.70-6.10); Red Cell Distribution Width 14.1 % (11.0-15.0); White Blood Count 11.6 10^3/uL (4.0-11.0)
[2024-10-15 06:01] LABS: Anion Gap 13.2; BUN Creatinine Ratio 18.1; Calcium 8.8 mg/dL (8.5-10.1); Carbon Dioxide 32.9 mmol/L (21.0-32.0); Chloride 95 mmol/L (98-107); Estimated GFR (African America 56 (>=60 mL/min/1.73m^2); Estimated GFR (Non-African Ame 46 (>=60 mL/min/1.73m^2); Glucose 142 mg/dL (74-106); Potassium 3.1 mmol/L (3.5-5.1); Sodium 138 mmol/L (136-145)
[2024-10-15 06:07] LABS: Atypical Lymphocytes Abs Man 0.69; Eosinophils Absolute Manual 0.11 10^3/uL (0.00-0.70); Monocytes Absolute Manual 1.04 10^3/uL (0.30-0.80); Segmented Neut Absolute Manual 7.65 10^3/uL (1.4-6.5)
[2024-10-15] MEDS: ALBUTEROL SULFATE 2.5 MG/3 ML VIAL NEB IH (07:27)
--- NOTE | 2024-10-15 07:56 | P.PN_ITS ---
Progress Note: Subjective Subjective Interval history: Cough much worse this morning. Patient still feels shortness of breath Exam Constitutional Vital Signs, click to edit/add: Last Vital Signs Temp 97.3 F L 10/15/24 04:15 Pulse 77 10/15/24 04:59 Resp 20 10/15/24 07:31 BP 116/74 10/15/24 04:15 Pulse Ox 93 L 10/15/24 04:59 O2 Del Method Nasal Cannula 10/15/24 04:59 O2 Flow Rate 2 10/15/24 04:59 Documenting provider has reviewed patient's vital signs: yes Common normals: no apparent distress Chest Common normals: inspection of chest normal and palpation of chest normal Respiratory Common normals: normal respiratory effort; not clear to ascultation bilaterally Auscultation: wheezes (Wheezes return, aerosol treatment 3 hours ago); no rales and no rhonchi (Minimal rhonchi no change) Cardio Common normals: regular rate and regular rhythm GI Common normals: soft to palpation and non-tender; negative for Normal to inspection, nondistended, normoactive bowel sounds present (Obese) Extremity Common normals: abnormal to inspection (1+ edema-improved from previous day) and clubbing, cyanosis or edema Neuro Common normals: oriented x3, CN's II-XII intact bilaterally and moves all extremities Progress Note: Objective Labs Labs: Short CBC 10/15/24 Range/Units 05:21 WBC 11.6 H (4.0-11.0) 10^3/uL Hgb 13.2 L (14.0-18.0) g/dL Hct 38.6 L (42.0-54.0) % Plt Count 205 (150-450) 10^3/uL BMP 10/15/24 05:21 Sodium 138 Potassium 3.1 L Chloride 95 L Carbon Dioxide 32.9 H BUN 27.0 H Creatinine 1.49 H Glucose 142 H Calcium 8.8 Progress Note: A&P Assessment and Plan (1) Congestive heart failure: (2) Acute hyponatremia: (3) URI (upper respiratory infection): (4) COPD exacerbation: (5) Hypertension: Qualifiers: Hypertension type: primary hypertension Qualified Code(s): I10 - Essential (primary) hypertension (6) GERD (gastroesophageal reflux disease): Qualifiers: Esophagitis presence: without esophagitis Qualified Code(s): K21.9 - Gastro-esophageal reflux disease without esophagitis (7) BPH (benign prostatic hyperplasia): Qualifiers: Lower urinary tract symptom presence: symptoms absent Qualified Code(s): N40.0 - Benign prostatic hyperplasia without lower urinary tract sym ptoms Plan Admission findings: Fever (baseline temperature for him as documented with previous visits is 72.5, temperature here is 100 which would put him 2.5 degrees above baseline), tachycardia, respiratory distress, acute hypoxia with O2 sat less than 89%, low normal white blood cell count but leukocytosis and positive lactic acidosis consistent with acute sepsis secondary to acute exacerbation of COPD secondary to acute bronchitis Acute hypoxia with acute exacerbation of COPD secondary to multifocal pneumonia noted on CT scan with failed outpatient treatment with ER visits x 2, failing oral medications resulting in sepsis with lactic acidosis-still with significant dyspnea and now wheezes have returned, will adjust antibiotics, repeat chest x- ray increase aerosol treatments back up to every 4 hours Hyponatremia-resolved to normal Iron deficiency anemia-Down slightly today Hypertension-stable GERD-continue with home medications Acute combined congestive heart failure on top of chronic combined congestive heart failure resulting in acute hypoxia-BNP is returned to normal, kidney function up slightly likely from the diuresis, add Aldactone-at this point I believe his heart failure is improved with less edema than previous days BNP to normal, check echocardiogram sleep apnea-will need home oxygen for his COPD as outlined above, this will benefit him at nighttime facilities out type patient sleep study Morbid obesity-diet management Moderate protein calorie malnutrition-diet supplement Admission status: Patient with failed outpatient treatment of acute bronchitis resulting in acute exacerbation of COPD with the failed outpatient treatment resulting in sepsis. Try to wean patient off of supplemental oxygen overnight will start patient off as observational status as there is a 50-50 chance to be discharged to home tomorrow. If unable to wean off of supplemental oxygen or improve his lung function by tomorrow, medically necessary treatment will then span 2 midnights and he will be changed to inpatient status Update to admission status: Last couple days has been more his heart failure has been the issue, he has diuresed well, but now is cough is much worse, wheezes have returned, sputum production increasing, sputum culture pending, changing antibiotics, medically necessary treatment will likely span 2 more midnights ?
--- NOTE | 2024-10-15 07:57 | CA_ITS ---
Patient Name: DEMARCUS CALDERON MR#: [id number] : 1955 Exam Date: 10/15/2024 Ordering Doctor: DR RK PATE . ECHOCARDIOGRAM REPORT PROCEDURE: CA ECHO DOPPLER COMPLETE INDICATIONS: Congestive heart failure, MD, cardiac stent, COPD, emphysema, hypertension COMPARISON: None. DESCRIPTION: COMPLETE ECHOCARDIOGRAM Real-time transthoracic echocardiography with 2D, M-mode, spectral and color flow Doppler performed. QUALITY: Technical quality was good. LEFT VENTRICLE: Mild dilatation. Mild eccentric left ventricular hypertrophy. There is global hypokinesis. Severely reduced systolic function. LV EF: Severely reduced left ventricular ejection fraction, (25%). DIASTOLIC: ATRIAL SEPTUM: Visually appears intact. LEFT ATRIUM: Normal chamber size. RIGHT ATRIUM: Mild dilatation. RIGHT VENTRICLE: Normal chamber size. Normal right ventricular systolic function. TRICUSPID VALVE: Normal mobility and thickness. No stenosis with trivial regurgitation. No evidence of pulmonary hypertension. RVSP 29 mmHg MITRAL VALVE: Normal mobility and thickness. No evidence of mitral valve stenosis. There is no mitral annular calcification. Mild mitral regurgitation. AORTIC VALVE: Normal trileaflet appearance. Thickened aortic valve. Normal leaflet mobility. No evidence of aortic valve stenosis. No aortic regurgitation. AORTIC ROOT: Normal diameter and appearance, measuring 3.4 cm. PULMONIC VALVE: Normal thickness and mobility. No stenosis. No regurgitation. PERICARDIUM: No evidence of pericardial effusion. IVC: Collapses with inspirations. PLEURA: CONCLUSION: 1. The left ventricle exhibits mild eccentric hypertrophy with severely reduced systolic function. Estimated LVEF is 25%. 2. Normal right ventricular size and systolic function. 3. Mild mitral regurgitation. 4. Normal right-sided pressures. Adult Echocardiography Procedure Report Left Ventricle LVEDD (3.7 - 5.6 cm): 6.27 cm LVESD (2.2 - 4.0 cm): 4.88 cm LVIVS thickness (0.6 - 1.2 cm): 1.12 cm LVPW thickness (0.5 - 1.0 cm): 1.30 cm e': 0.05 m/s E - e': 10.40 LVOT Max Gradient: 2.54 mm[Hg] LVOT Area (cm2): 0.80 m/s Peak Velocity (LVOT): 0.80 m/s Mean Velocity (LVOT): 0.53 m/s LVOT Diameter 2.13 cm Left Atrium LA Volume Index (2D A2C): 24.21 ml/m2 Left Atrium Systolic Dimension: 4.77 cm Mitral Valve MV E to A Ratio: 0.71 Mitral Valve A-Wave Peak Velocity: 0.74 m/s Mitral Valve E-Wave Peak Velocity: 0.53 m/s Right Ventricle Aorta AO Root Diam: 3.38 cm Aortic Valve AoV Area (Peak Remi): 2.24 cm2, 2.24 cm2 AoV Area (VTI): 2.17 cm2, 2.17 cm2 Peak Velocity(Antegrade Flow): 1.27 m/s Peak Gradient(Antegrade Flow): 6.41 mm[Hg] Mean Velocity(Antegrade Flow): 0.78 m/s Mean Gradient(Antegrade Flow): 2.93 mm[Hg] Velocity Time Integral: 28.29 cm Tricuspid Valve Peak Velocity (Regurgitant Flow): 2.55 m/s Pulmonic Valve Peak Velocity: 0.81 m/s Peak Gradient: 1.78 mm[Hg], 3.64 mm[Hg] Right Atrium Right Atrium Systolic Pressure: 55.29 ml, 55.29 ml Dictated by: Alex Garcia M.D. on 10/15/2024 at 19:17 Approved by: Alex Garcia M.D. on 10/15/2024 at 19:21
--- NOTE | 2024-10-15 08:00 | XR_ITS ---
The [address] [address] Patient Name: DEMARCUS CALDERON MRN: [id number] date: 1955 Sex: M Assigned Patient Location: [place] Current Patient Location: Accession/Order Number: [id number] Exam Date: 10/15/2024 09:06 Report Date: 10/15/2024 09:11 At the request of: RK PATE MD Procedure: XR chest 2V PA AND LATERAL CHEST: CLINICAL HISTORY: follow up pneumonia. Hemoptysis and productive cough COMPARISON: 10/13/[address] 10/11/2024 Similar mild groundglass opacities are noted. There is no developing consolidation, effusion or pneumothorax. The cardiac, hilar and mediastinal silhouettes are within normal limits. There is no vascular congestion. The visualized bony thorax is intact. There is spurring seen. XR/XR chest 2V IMPRESSION: CONTINUED PARENCHYMAL CHANGES. NO NEW ABNORMALITIES. Impression dictated by: Lisa Barillas M.D. 10/15/2024 9:11 AM Dictation Location: [place] [address] Electronically authenticated by: [id number] Y Date: 10/15/2024 09:11
--- NOTE | 2024-10-15 08:29 | CM.NOTE ---
Rounds made with Dr. Klein, pt continues with harsh cough and c/o SOB. Pt denies improvement. Dr. Klein will adjust medications today.
[2024-10-15] MEDS: CARVEDILOL 12.5 MG TABLET PO ×2 (08:46→21:06)
[2024-10-15] MEDS: CETIRIZINE HCL 10 MG TABLET PO (08:46)
[2024-10-15] MEDS: SPIRONOLACTONE 25 MG TABLET 50 MG PO (08:46)
[2024-10-15] MEDS: POTASSIUM CHLORIDE 10 MEQ ER TABLET 20 MEQ PO ×2 (08:46→21:05)
[2024-10-15] MEDS: POLYETHYLENE GLYCOL 3350 17 GM POWDER PACKET PO (08:46)
[2024-10-15] MEDS: FUROSEMIDE 40 MG TABLET PO ×2 (08:47→21:06)
[2024-10-15] MEDS: PREDNISONE 20 MG TABLET 40 MG PO (08:47)
[2024-10-15] MEDS: AZITHROMYCIN 500 MG in 0.9 % SODIUM CHLORIDE 250 ML 250 MG IV (08:47)
[2024-10-15] MEDS: MONTELUKAST SODIUM 10 MG TABLET PO (08:47)
[2024-10-15] MEDS: GUAIFENESIN 600 MG TAB.ER.12H 1200 MG PO ×2 (08:47→21:06)
[2024-10-15] MEDS: POTASSIUM CHLORIDE 40 MEQ in 0.9 % SODIUM CHLORIDE 250 ML 67.5 MEQ IV (08:48)
[2024-10-15] MEDS: FLUTICASONE PROPIONATE 50 MCG NASAL SPRAY 2 SPRAY NS (08:57)
[2024-10-15] MEDS: 0.9 % SODIUM CHLORIDE 250 ML 10 ML IV (09:30)
[2024-10-15] MEDS: CEFTRIAXONE 1,000 MG in 0.9 % SODIUM CHLORIDE 50 ML 100 MG IV (10:13)
[2024-10-15] MEDS: SODIUM CHLORIDE 0.9% INHALATION 3 ML NEB 6 ML IH ×3 (10:50→19:35)
[2024-10-15] MEDS: TAMSULOSIN HCL 0.4 MG CAPSULE 0.8 MG PO (21:06)
[2024-10-16] VITALS (11 sets, daily range): BP systolic 114–164; BP diastolic 9–97; PULSE 66–94; TEMP 36.6–36.9; O2SAT 89–98
[2024-10-16] MEDS: BENZONATATE 100 MG CAPSULE 200 MG PO ×2 (01:39→15:34)
[2024-10-16] MEDS: IPRATROPIUM/ALBUTEROL SULFATE 3 ML AMPUL.NEB IH ×5 (03:47→19:31)
[2024-10-16 05:18] LABS: Hematocrit 41.4 % (42.0-54.0); Hemoglobin 13.9 g/dL (14.0-18.0); Mean Corpuscular HGB Conc 33.6 g/dL (29.9-35.2); Mean Corpuscular Hemoglobin 28.4 pg (25.9-34.0); Mean Corpuscular Volume 84.5 fL (80.0-94.0); Mean Platelet Volume 9.7 fL (9.5-13.5); Platelet Count 204 10^3/uL (150-450); Red Cell Distribution Width 14.3 % (11.0-15.0)
[2024-10-16 05:31] LABS: Anion Gap 15.3; BUN Creatinine Ratio 22.8; Calcium 8.7 mg/dL (8.5-10.1); Carbon Dioxide 28.8 mmol/L (21.0-32.0); Chloride 100 mmol/L (98-107); Estimated GFR (African America >60 (>=60 mL/min/1.73m^2); Estimated GFR (Non-African Ame >60 (>=60 mL/min/1.73m^2); Glucose 156 mg/dL (74-106); Potassium 4.1 mmol/L (3.5-5.1); Sodium 140 mmol/L (136-145)
[2024-10-16 05:45] LABS: Segmented Neut Absolute Manual 9.48 10^3/uL (1.4-6.5)
[2024-10-16 05:46] LABS: Band Neutrophils Absolute 0.1 10^3/uL (0.0-0.3); Eosinophils Absolute Manual 0.24 10^3/uL (0.00-0.70); Lymphocytes Absolute Manual 1.92 10^3/uL (1.20-3.80); Monocytes Absolute Manual 0.24 10^3/uL (0.30-0.80)
[2024-10-16] MEDS: SODIUM CHLORIDE 0.9% INHALATION 3 ML NEB 6 ML IH ×2 (07:36→15:59)
--- NOTE | 2024-10-16 08:13 | ECG_ITS ---
The [facility] Test Date: 2024-10-16 Pat Name: DEMARCUS CALDERON Department: Room: 2191 Gender: Male [employer]cher: : 1955 Requested By: RK PATE Order Number: [id number] Reading MD: CONRAD WINTER Measurements Intervals [place] Rate: 89 P: 40 [place]: 154 QRS: -12 QRSD: 106 T: 77 QT: 364 QTc: 445 Interpretive Statements SINUS RHYTHM POSSIBLE LEFT VENTRICULAR HYPERTROPHY [VOLTAGE CRITERIA PLUS LAE OR QRS WIDENING] Compared to ECG 10/09/2024 11:29:05 No significant change Electronically Signed On 10-16-2024 15:44:13 EDT by CONRAD WINTER
--- NOTE | 2024-10-16 08:15 | P.PN_ITS ---
Progress Note: Subjective Subjective Interval history: So far today his cough is slightly better than previous day, discussed echocardiogram with reduced ejection fraction of 25% Exam Constitutional Vital Signs, click to edit/add: Last Vital Signs Temp 97.9 F 10/16/24 04:00 Pulse 74 10/16/24 07:38 Resp 18 10/16/24 07:38 BP 120/72 10/16/24 04:00 Pulse Ox 98 10/16/24 07:38 O2 Del Method Nasal Cannula 10/16/24 07:38 O2 Flow Rate 1 10/16/24 07:38 Documenting provider has reviewed patient's vital signs: yes Common normals: no apparent distress Chest Common normals: inspection of chest normal Respiratory Common normals: normal respiratory effort; not clear to ascultation bilaterally Auscultation: no rales, no rhonchi (Minimal rhonchi no change) and no wheezes (Wheezes return, aerosol treatment 3 hours ago) Cardio Common normals: regular rate, regular rhythm and no murmurs GI Common normals: soft to palpation and non-tender; negative for Normal to inspection, nondistended, normoactive bowel sounds present (Obese) Extremity Common normals: abnormal to inspection (1+ edema-improved from previous day) and clubbing, cyanosis or edema Neuro Common normals: oriented x3, CN's II-XII intact bilaterally and moves all extremities Progress Note: Objective Labs Labs: Short CBC 10/16/24 Range/Units 04:45 WBC 12.0 H (4.0-11.0) 10^3/uL Hgb 13.9 L (14.0-18.0) g/dL Hct 41.4 L (42.0-54.0) % Plt Count 204 (150-450) 10^3/uL BMP 10/16/24 04:45 Sodium 140 Potassium 4.1 Chloride 100 Carbon Dioxide 28.8 BUN 23.0 H Creatinine 1.01 Glucose 156 H Calcium 8.7 Progress Note: A&P Assessment and Plan (1) Congestive heart failure: (2) Acute hyponatremia: (3) URI (upper respiratory infection): (4) COPD exacerbation: (5) Hypertension: Qualifiers: Hypertension type: primary hypertension Qualified Code(s): I10 - Ess[place] tial (primary) hypertension (6) GERD (gastroesophageal reflux disease): Qualifiers: Esophagitis presence: without esophagitis Qualified Code(s): K21.9 - Gastro-esophageal reflux disease without esophagitis (7) BPH (benign prostatic hyperplasia): Qualifiers: Lower urinary tract symptom presence: symptoms absent Qualified Code(s): N40.0 - Benign prostatic hyperplasia without lower urinary tract symptoms Plan Admission findings: Fever (baseline temperature for him as documented with previous visits is 72.5, temperature here is 100 which would put him 2.5 degrees above baseline), tachycardia, respiratory distress, acute hypoxia with O2 sat less than 89%, low normal white blood cell count but leukocytosis and positive lactic acidosis consistent with acute sepsis secondary to acute exacerbation of COPD secondary to acute bronchitis Acute hypoxia with acute exacerbation of COPD secondary to multifocal pneumonia noted on CT scan with failed outpatient treatment with ER visits x 2, failing oral medications resulting in sepsis with lactic acidosis-lung exam is worse yesterday, cough was worse yesterday, changed antibiotics yesterday, lung exam is improved today, maintain current antibiotics and prednisone dosing Hyponatremia-resolved to normal Hypokalemia-improved to normal Acute kidney injury yesterday secondary to diuresis-improved to normal today Iron deficiency anemia-Down slightly today Hypertension-stable GERD-continue with home medications Acute combined congestive heart failure on top of 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 Try to wean patient off of supplemental oxygen overnight will start patient off as observational status as there is a 50-50 chance to be discharged to home tomorrow. If unable to wean off of supplemental oxygen or improve his lung function by tomorrow, medically necessary treatment will then span 2 midnights and he will be changed to inpatient status Update to admission status: Last couple days has been more his heart failure has been the issue, he has diuresed well, but now is cough is much worse, wheezes have returned, sputum production increasing, sputum culture pending, changing antibiotics, medically necessary treatment will likely span 2 more midnights, likely 1 more night hospital stay, based on evaluation from cardiology ?
--- NOTE | 2024-10-16 08:20 | CM.NOTE ---
Rounds made with Dr. Klein. Dr. Klein reviews lab/radiology findings with Mr. Panchal. Cardiology Consult to be ordered for today. Mr. Panchal verbalizes understanding.
[2024-10-16 08:37] LABS: Troponin I High Sensitivity 24.6 pg/mL (4.0-76.1)
[2024-10-16] MEDS: AZITHROMYCIN 500 MG in 0.9 % SODIUM CHLORIDE 250 ML 250 MG IV (09:25)
[2024-10-16] MEDS: POLYETHYLENE GLYCOL 3350 17 GM POWDER PACKET PO (09:25)
[2024-10-16] MEDS: CETIRIZINE HCL 10 MG TABLET PO (09:26)
[2024-10-16] MEDS: POTASSIUM CHLORIDE 10 MEQ ER TABLET 20 MEQ PO ×2 (09:26→20:20)
[2024-10-16] MEDS: SPIRONOLACTONE 25 MG TABLET 50 MG PO (09:26)
[2024-10-16] MEDS: GUAIFENESIN 600 MG TAB.ER.12H 1200 MG PO ×2 (09:26→20:20)
[2024-10-16] MEDS: MONTELUKAST SODIUM 10 MG TABLET PO (09:26)
[2024-10-16] MEDS: CARVEDILOL 12.5 MG TABLET PO ×2 (09:26→20:20)
[2024-10-16] MEDS: SACUBITRIL/VALSARTAN 24 MG-26 MG TABLET 1 TAB PO ×2 (09:26→20:20)
[2024-10-16] MEDS: FUROSEMIDE 40 MG/4 ML VIAL IVP ×2 (09:26→20:20)
[2024-10-16] MEDS: PREDNISONE 20 MG TABLET 40 MG PO (09:26)
[2024-10-16] MEDS: FLUTICASONE PROPIONATE 50 MCG NASAL SPRAY 2 SPRAY NS (09:27)
[2024-10-16] MEDS: CEFTRIAXONE 1,000 MG in 0.9 % SODIUM CHLORIDE 50 ML 100 MG IV (11:35)
--- NOTE | 2024-10-16 18:13 | P.DS_ITS ---
DS: Providers Provider Date of admission: 10/10/24 07:54 Primary care physician: Torres Klein MD Consults: 10/09/24 14:26 Consult to Pharmacy Routine Consulting Provider: Reason for consultation: Please [place] me when Med Rec is Updated Has provider been notified: No Occupational Therapy Eval and Treat Routine Reason for consultation: Only if needed for Rehab Has provider been notified: No Physical Therapy Eval and Treat Routine Reason for consultation: Eval and Treat Has provider been notified: No 10/16/24 08:05 Consult to Cardiology Routine Reason for consultation: CHFrEF 25% Has provider been notified: No DS: Diagnosis Discharge Diagnosis (1) Congestive heart failure: (2) Acute hyponatremia: (3) URI (upper respiratory infection): (4) COPD exacerbation: (5) Hypertension: Qualifiers: Hypertension type: primary hypertension Qualified Code(s): I10 - Essential (primary) hypertension (6) GERD (gastroesophageal reflux disease): Qualifiers: Esophagitis presence: without esophagitis Qualified Code(s): K21.9 - Gastro-esophageal reflux disease without esophagitis (7) BPH (benign prostatic hyperplasia): Qualifiers: Lower urinary tract symptom presence: symptoms absent Qualified Code(s): N40.0 - Benign prostatic hyperplasia without lower urinary tract symptoms Plan Admission findings: Fever (baseline temperature for him as documented with previous visits is 72.5, temperature here is 100 which would put him 2.5 degrees above baseline), tachycardia, respiratory distress, acute hypoxia with O2 sat less than 89%, low normal white blood cell count but leukocytosis and positive lactic acidosis consistent with acute sepsis secondary to acute exacerbation of COPD secondary to acute bronchitis Acute hypoxia with acute exacerbation of COPD secondary to multifocal pneumonia noted on CT scan with failed outpatient treatment with ER visits x 2, failing oral medications resulting in sepsis with lactic acidosis-lung exam is worse yesterday, cough was worse yesterday, changed antibiotics yesterday, lung exam is improved today, maintain current antibiotics and prednisone dosing Hyponatremia-resolved to normal Hypokalemia-improved to normal Acute kidney injury yesterday secondary to diuresis-improved to normal today Iron deficiency anemia-Down slightly today Hypertension-stable GERD-continue with home medications Acute combined congestive heart failure on top of 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 Try to wean patient off of supplemental oxygen overnight will start patient off as observational status as there is a 50-50 chance to be discharged to home tomorrow. If unable to wean off of supplemental oxygen or improve his lung function by tomorrow, medically necessary treatment will then span 2 midnights and he will be changed to inpatient status Update to admission status: Last couple days has been more his heart failure has been the issue, he has diuresed well, but now is cough is much worse, wheezes stone ve returned, sputum production increasing, sputum culture pending, changing antibiotics, medically necessary treatment will likely span 2 more midnights, likely 1 more night hospital stay, based on evaluation from cardiology ? ? DS: Summary Hospital Course Hospital Course: Patient met with acute exacerbation of COPD which was presumed to be secondary to acute bronchitis, condition really did not improve significantly, CTA was obtained to rule out pulmonary embolism as a cause for his persistent hypoxia but that was negative but the CT scan did confirm bilateral pneumonia. With IV antibiotics, a sputum culture was obtained but was a improper specimen so that was just repeated 2 days ago, with his shortness of breath persisting and had some increase in his edema BNP was obtained which was elevated, higher than his baseline admission, given diuretics over 2 days time, good diuresis edema is improving in his lower extremities, echocardiogram was obtained previous day and shows an ejection fraction of 25%. Antibiotics were also adjusted 2 days ago due to the persistence of his cough and sputum production. Again as outlined above that culture is still pending at this time. Case discussed with cardiology and recommend with his significantly reduced ejection fraction despit e the BNP is returned to normal and high-sensitivity troponins negative throughout the admission but he be transferred to a tertiary care facility for likely interventional cardiology evaluation. Patient is accepted for transfer to [facility] and will follow-up in our office at discharge Time Spent with Patient Time attestation: Total time spent providing and/or coordinating discharge services: Exam Constitutional Vital Signs, click to edit/add: Last Vital Signs Temp 98.4 F 10/16/24 16:25 Pulse 80 10/16/24 16:25 Resp 18 10/16/24 16:25 BP 142/81 H 05/22/25 16:25 Pulse Ox 98 10/16/24 16:03 O2 Del Method Nasal Cannula 10/16/24 16:03 O2 Flow Rate 2 10/16/24 12:10 Documenting provider has reviewed patient's vital signs: yes Common normals: no apparent distress Chest Common normals: inspection of chest normal Respiratory Common normals: normal respiratory effort; not clear to ascultation bilaterally Auscultation: no rales, no rhonchi (Minimal rhonchi no change) and no wheezes (Wheezes return, aerosol treatment 3 hours ago) Cardio Common normals: regular rate, regular rhythm and no murmurs GI Common normals: soft to palpation and non-tender; negative for Normal to inspection, nondistended, normoactive bowel sounds present (Obese) Extremity Common normals: abnormal to inspection (1+ edema-improved from previous day) and clubbing, cyanosis or edema Neuro Common normals: oriented x3, CN's II-XII intact bilaterally and moves all extremities DS: Data Data Completed and Pending Labs on day of discharge: Labs from last 24 hours 10/16/24 04:45 WBC 12.0 H RBC 4.90 Hgb 13.9 L Hct 41.4 L MCV 84.5 MCH 28.4 MCHC 33.6 RDW 14.3 Plt Count 204 MPV 9.7 Seg Neuts % (Manual) 79.0 H Band Neutrophils % 1.0 Lymphocytes % (Manual) 16.0 L Monocytes % (Manual) 2.0 Eosinophils % (Manual) 2.0 Basophils % (Manual) 0.0 L Neutrophils # (Manual) 9.48 H Band Neutrophils # 0.1 Lymphocytes # (Manual) 1.92 Monocytes # (Manual) 0.24 L Eosinophils # (Manual) 0.24 Basophils # (Manual) 0.00 Sodium 140 Potassium 4.1 Chloride 100 Carbon Dioxide 28.8 Anion Gap 15.3 BUN 23.0 H Creatinine 1.01 Est GFR ( Amer) >60 Est GFR (Non-Af Amer) >60 BUN/Creatinine Ratio 22.8 Glucose 156 H Calcium 8.7 Troponin I High Sens 24.6 NT-Pro-B Natriuret Pep 304.0 Preliminary micro results at discharge 10/14/24 08:25 Lower Respiratory Culture - Preliminary Sputum - Expectorated Sputum Sho albicans Discharge Plan Discharge Disposition: Xfer Acute Care Hospital Condition: Fair
== END 2024-10-16 20:48 | disposition short-term general hospital (02) | DRG 871 ==
LOC: ER 12:29 → MS 13:45
PROVIDERS: Admitting Provider Family Medicine; Emergency Provider Emergency Medicine; PCP Family Medicine; Visit Provider Family Medicine
DX: A41.9 Sepsis, unspecified organism (principal); I50.43 Acute on chronic combined systolic (congestive) and diastolic (congestive) heart failure; J18.9 Pneumonia, unspecified organism; E87.1 Hypo-osmolality and hyponatremia; E87.20 Acidosis, unspecified; E44.0 Moderate protein-calorie malnutrition; N17.9 Acute kidney failure, unspecified; J20.9 Acute bronchitis, unspecified; J43.9 Emphysema, unspecified; I25.10 Atherosclerotic heart disease of native coronary artery without angina pectoris; I25.2 Old myocardial infarction; Z95.5 Presence of coronary angioplasty implant and graft; Z87.891 Personal history of nicotine dependence; N40.0 Benign prostatic hyperplasia without lower urinary tract symptoms; Z86.16 Personal history of COVID-19; Z87.01 Personal history of pneumonia (recurrent); I11.0 Hypertensive heart disease with heart failure; K21.9 Gastro-esophageal reflux disease without esophagitis; Z79.899 Other long term (current) drug therapy; E66.01 Morbid (severe) obesity due to excess calories; J06.9 Acute upper respiratory infection, unspecified; R06.03 Acute respiratory distress; D50.9 Iron deficiency anemia, unspecified; R19.7 Diarrhea, unspecified; G47.30 Sleep apnea, unspecified; R09.02 Hypoxemia; E87.6 Hypokalemia; Z68.33 Body mass index [BMI] 33.0-33.9, adult
CPT/HCPCS: 36415; 71045; 71046; 71275; 80048; 80076; 83605; 83735; 83880; 84484; 85007; 85025; 85027; 87040; 87070; 87106; 87205; 87420; 87804; 87811; 93005; 93306; 94640; 94667; 94668; 94761; 96365; 96367; 96375; 96376; 97110; 97161; 97165; 97530; 99285; G0378; J0456; J0696; J1938; J2543; J2919; J3480; J7512; Q9967

== ENCOUNTER 2024-10-18 20:08 | Inpatient (IN) | payer MEDICARE, OTHER, SELFPAY ==
--- OUTSIDE RECORDS SUMMARY | 2020-06-07 07:51 | XMS_ITS | Continuity of Care Document ---
Author Organization [facility] Address [address] [place] [address] Phone Care Team Providers Care Award Clerk Name Role Phone Heath Andrew DO Unavailable [...] Diagnoses Date Provider Providers Copied on Encounter [facility], [address] [place] [address], [id number], [place] tel:[phone] [facility] No Information [facility] DO Max. [address] [place] [address], [id number], [place]. tel:[phone] OFFICE/OUTPATI ENT VISIT, [facility], [address] [place] [address], [id number], [place] tel:[phone] [facility] Review Labs (chief complaint) Body mass index [BMI] 35.0-35.9, adultOther elevated white blood cell countCOPD mixed type [facility] DO Max. [address] [place] [address], [id number], [place]. tel:[phone] OFFICE/OUTPATI ENT VISIT, [facility], [address] [place] [address], [id number], [place] tel:[phone] [facility] Est Care (chief complaint)S hortness of breath (chief complaint) Other elevated white blood cell countCOPD mixed typeHypertens ion, unspecified typeBody mass index [BMI] 35.0-35.9, adult [facility] Max. [address] [place] [address], [id number], [place]. tel:[phone] Family History Family Member Type Diagnosis Age At Onset Brother Problem Alive and well Payers Payer name Insurance type Covered republican ID Authoriza tion(s) Medicare PPS MB [id number] [facility] [place] [id number] Social History Type Description Quantity Date Captured [...] he was diagnosed with COPD from the [place] doctors and patient states he doesnt think he has it. Pt states he had one issue with breathing and was given a nose spray and now has no breathing issues. Pt states he wants his WBC count checked. Pt states a few months ago it was elevated. 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
--- OUTSIDE RECORDS SUMMARY | 2024-04-01 07:30 | XMS_ITS | Encounter Summary ---
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 This section includes the names of all active insurance providers for the patient. Insurance Provider Type of Coverage Plan Name Start of Policy Coverage End of Policy Coverage Group Number Member ID Insurance Provider's Telephone Number Policy Villegas's Name Patient's Relationship to Policy Villegas MEDICARE (WNR) MEDICARE (M) PART B Jan 26, 2018 PART B [id number] KVNGLUIS MACIAS SELL PATIENT MEDICARE (WNR) MEDICARE (M) PART A Dec 26, 2017 PART A [id number] KVNGLUIS SELL PATIENT -FO R-LIFE [facility] RE FOR LIFE Jan 26, 2018 [facility] [id number] LUIS CALDERON SELL PATIENT Selected Encounter This section includes the information on record at [place] for the Encounter. Date/Time Encounter Type Encounter Description Reason Provider Source Apr 01, 2024 11:30 AM TELEHEALTH FACILITY FEE SLEEP MEDICINE ICD-10-CM Z13.9 Encounter for screening, unspecified NEFTALI CABA Encounter Template Text not used by [facility] Assessments - Encounter Diagnoses This section includes the primary and secondary diagnoses documented for the Encounter. Date/Time Primary/Secondary Diagnosis Diagnosis Name Provider Source Apr 01, 2024 11:37 AM PRIMARY Encounter for screening, unspecified NEFTALI CABA Plan of Treatment: Future Appointments (+ 6 months) and Future Tests (+/- 45 days) The Plan of Treatment section includes future care activities for the patient from all [place] treatmentfacilities. This section includes future appointments and future orders which are active, pending or scheduled. Future Appointments This section includes appointments that were scheduled to occur 6 months from the date of the Encounter, up to a maximum of 20 appointments. The data comes from all [place] treatment facilities. Appointment Date/Time Appointment Type Appointme nt Facility Name Apr 11, 2024 07:45 AM AMBULATORY - NONE [facility] Apr 18, 2024 09:30 AM AMBULATORY - NONE ALEJA Conklin [facility] Lab Results: +/- 30 days of the encounter This section includes the Chemistry and Hematology Lab Results on record with [place] for the patient. Radiology Reports and Pathology Reports are provided separately, in subsequent sections. Lab Results This section contains the Chemistry/Hematology Results that were resulted 30 days before or 30 daysafter the date of the Encounter. Date/Time Source Result Type Result - Unit Interpretation Reference Range Specimen Type Comment Apr 11, 2024 07:55 AM [facility] TSH PLASMA Specimen Type: PLASMA No comment entered. Ordering Provider: GURJIT BUSBY Report Released Date/Time: October 11, 2023 01:17 PM Reporting Lab: [facility] [address] [facility] [address] Performing Lab: [address] [address] TSH 2.857 u[IU]/mL 0.360-4.500 Apr 11, 2024 07:55 AM [facility] HEMOGLOBIN A1C BLOOD Specimen Type: B LOOD Comment: Values obtained from A1C measurements can vary. For typical A1C assays, a reported value of 7.0 could actually be between 6.72 and 7.28 if measured by a reference method. A reported value of 9.0 could actually be between 8.73 and 9.27. Ref: http://www.ngsp.org/[email or web address] Ordering Provider: GURJIT BUSBY Report Released Date/Time: October 11, 2023 01:17 PM Reporting Lab: [address] [address] Performing Lab: [address] [address] HEMOGLOBIN A1C 6.2 H 3.6-5.7 Apr 11, 2024 07:55 AM [facility] LIPID PROFILE PLASMA Specimen Type: P LASMA Comment: DLDLREF RANGE: NEAR OR ABOVE OPTIMAL: 100-129 mg/dL BORDERLINE DLDLHIGH: 130-159 mg/dL HIGH: 160-189 mg/dL VERY HIGH: >=190 TRIG REF RANGE: BORDERLINE HIGH: 150-199 mg/dL HIGH: 200-499 mg/dL TRIG VERY HIGH: >=500 mg/dL CREA eGFR was calculated using the CKD-EPI 2020 equation. CHOL REF RANGE: BORDERLINE HIGH: 200-239 mg/dL HIGH: >=240 mg/dL Ordering Provider: GURJIT BUSBY Report Released Date/Time: October 11, 2023 01:17 PM Reporting Lab: [address] [address] Performing Lab: [address] [address] CHOLESTEROL 190 mg/dL <199 LDL CHOLESTEROL 149 mg/dL H <99 HDL CHOLESTEROL 35 mg/dL L >60 TRIGLYCERIDE 156 mg/dL H <149 Apr 11, 2024 07:55 AM [facility] PROSTATE SPECIFIC ANTIGEN SERUM Speci men Type: SERUM No comment entered. Ordering Provider: GURJIT BUSBY Report Released Date/Time: October 11, 2023 01:17 PM Reporting Lab: [address] [address] Performing Lab: [address] [address] PROSTATE SPECIFIC ANTIGEN 3.09 ng/mL <4. 00 Apr 11, 2024 07:55 AM [facility] URINALYSIS URINE Specimen Type: URINE No comment entered. Ordering Provider: GURJIT BUSBY Report Released Date/Time: October 11, 2023 01:17 PM Reporting Lab: [address] [address] Performing Lab: [address] [address] SPECIFIC GRAVITY 1.009 L 1.016-1.022 URINE GLUCOSE Negative mg/dL Negative URINE PROTEIN Negative mg/dL Negative URINE PH 6.5 5.0-8.0 NITRITE, URINE Negative Negative ESTERASE(WBC) Negative Negative URINE CLARITY Clear Clear URINE BILIRUBIN Negative mg/dL <=0.4 URINE BLOOD Negative mg/dL <0.05 UROBILINOGEN Negative mg/dL <=1 URINE KETONES Negative mg/dL <=9 URINE COLOR Light-Yellow [none] Apr 11, 2024 07:55 AM [facility] COMPREHENSIVE METABOLIC PANEL PLASMA S pecimen Type: PLASMA Comment: DLDLREF RANGE: NEAR OR ABOVE OPTIMAL: 100-129 mg/dL BORDERLINE DLDLHIGH: 130-159 mg/dL HIGH: 160-189 mg/dL VERY HIGH: >=190 TRIG REF RANGE: BORDERLINE HIGH: 150-199 mg/dL HIGH: 200-499 mg/dL TRIG VERY HIGH: >=500 mg/dL CREA eGFR was calculated using the CKD-EPI 2020 equation. CHOL REF RANGE: BORDERLINE HIGH: 200-239 mg/dL HIGH: >=240 mg/dL Ordering Provider: GURJIT BUSBY Report Released Date/Time: October 11, 2023 01:17 PM Reporting Lab: [place] [id number] [facility] [address] Performing Lab: [address] [phone] ALBUMIN 4.0 g/dL 3.2-4.6 ALKALINE PHOSPHATASE 63 U/L 40-150 ALT/SGPT 42 U/L <55 AST/SGOT 35 U/L H 5-34 BUN 10 mg/dL 8.4-25.7 CALCIUM 9.0 mg/dL 8.8-10.0 CREATININE 0.9 mg/dL 0.72-1.25 CO2 21 mmol/L L 23-31 GLUCOSE 120 mg/dL H 82-115 PROTEIN, TOTAL 6.2 g/dL L 6.4-8.3 SODIUM 137 mmol/L 136-145 CHLORIDE 108 mmol/L H 98-107 BILIRUBIN, TOTAL 0.6 mg/dL 0.2-1.2 POTASSIUM 3.9 mmol/L 3.5-5.1 ANION GAP 12.0 mmol/L 10-20 EGFR (CALCULATED) 91.0 mL/min Apr 11, 2024 07:55 AM [facility] CBC BLOOD Specimen Type: BLOOD No comment entered. Ordering Provider: GURJIT BUSBY Report Released Date/Time: October 11, 2023 01:17 PM Reporting Lab: [facility] [address] [facility] [address] Performing Lab: [facility] [address] [facility] [address] WBC COUNT 6.6 10*3/uL 3.6-11.0 RBC COUNT 4.59 10*6/uL 4.47-5.83 HGB 13.6 g/dL 13.6-17.4 HCT 40.5 40.0-51.0 MCV 88.2 fL 80.0-96.0 MCH 29.7 pg 27.0-31.0 MCHC 33.6 g/dL 31.5-36.5 PLT 166 10*3/uL 150-400 LYMPHS % 25.1 21.0-51.0 MONOCYTES % 10.2 H 4.0-8.0 NUCLEATED RBC/100WBC 0.1 /100{WBCs} RDW 15.6 11.2-15.8 NEUTROPHIL % 54.5 54.0-78.0 EOSINOPHIL % 9.6 H 0.0-3.0 BASOPHIL % 0.6 0.0-3.0 ABSOLUTE LYMPHOCYTE COUNT 1.7 10*3/uL 0. 8-5.0 ABSOLUTE NEUTROPHIL COUNT 3.6 10*3/uL 1. 9-8.6 ABSOLUTE BASOPHIL COUNT 0.0 10*3/uL 0.0- 0.3 ABSOLUTE MONOCYTE COUNT 0.7 10*3/uL 0.1- 0.9 ABSOLUTE EOSINOPHIL COUNT 0.6 10*3/uL H 0. 0-0.3 MPV 9.0 fL 7.4-11.4 Social History: Smoking Status (Most current) and Tobacco Use (All prior to encounter date) This section includes the most current, and the historical, smoking and tobacco- related health factors from the [place] facility where the Encounter took place. Current Smoking Status This section includes the most current smoking, or tobacco-related health factor, from the [place] facility where the Encounter took place. Date/Time Current Smoking Status Zoraida Connelly italmaz October 11, 2023 01:00 PM VA-TOBACCO FORMER USER [facility] Tobacco Use History This section includes a history of the smoking, or tobacco-related health factors, that were collected on or before the date of the Encounter. The data comes from the [place] facility where the Encounter took place. Date/Time Smoking Status/Tobacco Use Comment F acility October 11, 2023 01:00 PM VA-TOBACCO QUIT 15 YRS OR MORE [facility] Jul 28, 2022 02:00 PM VA-TOBACCO FORMER USER [facility] Jul 28, 2022 02:00 PM VA-TOBACCO QUIT 15 YRS OR MORE [facility] Aug 16, 2018 09:23 AM VA-TOBACCO FORMER USER [facility] Aug 16, 2018 09:23 AM VA-TOBACCO QUIT 15 YRS OR MORE [facility] Aug 10, 2017 02:35 PM VA-TOBACCO FORMER USER [facility] Aug 10, 2017 02:35 PM VA-TOBACCO QUIT 15 YRS OR MORE [facility] May 03, 2007 09:35 AM QUIT TOBACCO >7 YEARS AGO [facility] Jun 04, 2006 08:10 AM QUIT TOBACCO >7 YEARS AGO [facility] Apr 27, 2006 10:26 AM TOBACCO FORMER USE R MORE 12 MONTHS QUIT 15 YRS AGO [facility] Encounter Notes: All associated encounter notes This section contains the clinical notes associated to the Encounter. Date/Time Encounter Note(s) Provider Source Apr 01, 2024 11:59 AM ADDENDUM: LOCAL TITLE: Addendum STANDARD TITLE: ADDENDUM DATE OF NOTE: APR 01, 2024@11:59:24 ENTRY DATE: APR 01, 2024@11:59:25 AUTHOR: NEFTALI CABA EXP COSIGNER: URGENCY: STATUS: COMPLETED Patient here today for CVT Sleep appointment and states he needs a Nebulizer machine and refills. States his Nebulizer machine he bought years ago is not working properly and asking if [facility] can help with a New Nebulizer machine along with refills of Nebulizer Solution /deya/ NEFTALI CABA LICENSED PRACTICAL NURSE Signed: 04/01/2024 12:01 Receipt Acknowledged By: 04/01/2024 12:13 /deya/ GURJIT BUSBY NURSE PRACTITIONER --- Original Document --- 04/01/24 TELEHEALTH VIDEO NOTE (T): The patient presented for a Video Telehealth visit. Please see provider side documentation for information related to this visit. The patient agrees to video appointment?: Yes The TCT performed the following activities during the appointment: Vital signs Pulse reading was documented at this visit. 66 Respiration reading was documented at this visit. 14 New blood pressure reading was documented at this visit. 133/76 Pain scale was documented at this visit. 0 A new weight was documented at this visit. 242.2 lb (110.1 kg) Review Allergies Allergies reviewed and updated per protocol. ALLERGIES/ADVERSE REACTIONS Type: DRUG Date/Time Reactant Severity Reaction 05/23/2013 10:12 GUAIFENESIN AIRWAY CONSTRICTION 04/27/2006 10:23 CODEINE NAUSEA AND VOMITING MEDICATION LIST REVIEW REPORT Patient's Active Medications were reviewed at this visit. Patient states no change in documented OTC/Herbals at this visit. Sleep: Neck circumference: 18in Mallampati score: 4 ESS score: 0 SANDRINE score: 4 Suicide Screen: C-SSRS Screening [place] Suicide Severity Rating Scale (C-SSRS) screener 1. Over the past month, have you wished you were or wished you could go to sleep and not wake up? No 2. Over the past month, have you had any actual thoughts of killing yourself? No 3. Over the past month, have you been thinking about how you might do this? Response not required due to responses to other questions. 4. Over the past month, have you had these thoughts and had some intention of acting on them? Response not required due to responses to other questions. 5. Over the past month, have you started to work out or worked out the details of how to kill yourself? Response not required due to responses to other questions. 6. If yes, at any time in the past month did you intend to carry out this plan? Response not required due to responses to other questions. 7. In your lifetime, have you ever done anything, started to do anything, or prepared to do anything to end your life (for example, collected pills, obtained a gun, gave away valuables, went to the roof but didn't jump)? No 8. If YES, was this within the past 3 months? Response not required due to responses to other questions. HCPCS code Q3014 documented in encounter. /deya/ NEFTALI CABA LICENSED PRACTICAL NURSE Signed: 04/01/2024 11:37 NEFTALI CABA CB Apr 01, 2024 11:26 AM TELEHEALTH NOTE: LOCAL TITLE: TELEHEALTH VIDEO NOTE (T) STANDARD TITLE: TELEHEALTH NOTE DATE OF NOTE: APR 01, 2024@11:26 ENTRY DATE: APR 01, 2024@11:26:37 AUTHOR: NEFTALI CABA EXP COSIGNER: URGENCY: STATUS: COMPLETED TELEHEALTH VIDEO NOTE (T) Has ADDENDA The patient presented for a Video Telehealth visit. Please see provider side documentation for information related to this visit. The patient agrees to video appointment?: Yes The TCT performed the following activities during the appointment: Vital signs Pulse reading was documented at this visit. 66 Respiration reading was documented at this visit. 14 New blood pressure reading was documented at this visit. 133/76 Pain scale was documented at this visit. 0 A new weight was documented at this visit. 242.2 lb (110.1 kg) Review Allergies Allergies reviewed and updated per protocol. ALLERGIES/ADVERSE REACTIONS Type: DRUG Date/Time Reactant Severity Reaction 05/23/2013 10:12 GUAIFENESIN AIRWAY CONSTRICTION 04/27/2006 10:23 CODEINE NAUSEA AND VOMITING MEDICATION LIST REVIEW REPORT Patient's Active Medications were reviewed at this visit. Patient states no change in documented OTC/Herbals at this visit. Sleep: Neck circumference: 18in Mallampati score: 4 ESS score: 0 SANDRINE score: 4 Suicide Screen: C-SSRS Screening [place] Suicide Severity Rating Scale (C-SSRS) screener 1. Over the past month, have you wished you were or wished you could go to sleep and not wake up? No 2. Over the past month, have you had any actual thoughts of killing yourself? No 3. Over the past month, have you been thinking about how you might do this? Response not required due to responses to other questions. 4. Over the past month, have you had these thoughts and had some intention of acting on them? Response not required due to responses to other questions. 5. Over the past month, have you started to work out or worked out the details of how to kill yourself? Response not required due to responses to other questions. 6. If yes, at any time in the past month did you intend to carry out this plan? Response not required due to responses to other questions. 7. In your lifetime, have you ever done anything, started to do anything, or prepared to do anything to end your life (for example, collected pills, obtained a gun, gave away valuables, went to the roof but didn't jump)? No 8. If YES, was this within the past 3 months? Response not required due to responses to other questions. HCPCS code Q3014 documented in encounter. /deya/ NEFTALI CABA LICENSED PRACTICAL NURSE Signed: 04/01/2024 11:37 04/01/2024 ADDENDUM STATUS: COMPLETED Patient here today for CVT Sleep appointment and states he needs a Nebulizer machine and refills. States his Nebulizer machine he bought years ago is not working properly and asking if [facility] can help with a New Nebulizer machine along with refills of Nebulizer Solution /kate CABA LICENSED PRACTICAL NURSE Signed: 04/01/2024 12:01 Receipt Acknowledged By: * AWAITING SIGNATURE * GURJIT BUSBY DAWN ANN SAND[facility]
--- OUTSIDE RECORDS SUMMARY | 2024-04-01 07:30 | XMS_ITS | Encounter Summary ---
Author Name [facility] [place] [facility] [place] [facility] [place] Address [address] [place] [address] Care Team Providers Care Paperhanger Pipe Name Role Phone GURJIT BUSBY Primary Care [...] PART B Jan 26, 2018 PART B [id number] LUIS CALDERON SELL PATIENT MEDICARE (WNR) MEDICARE (M) PART A Dec 26, 2017 PART A [id number] [phone] KVNGLUIS SELL PATIENT -FO R-LIFE TRICA RE FOR LIFE Jan 26, 2018 [facility] [id number] LUIS CALDERON SELL PATIENT Selected Encounter This section includes the information on record at [place] for the Encounter. Date/Time Encounter Type Encounter Description Reason Provider Source Apr 01, 2024 11:30 AM OFFICE O/P NEW LOW 30 MIN SLEEP MEDICINE ICD-10-CM G47.30 Sleep apnea, unspecified DARNELL SIMEON Encounter Template Text not used by [place] Assessments - Encounter Diagnoses This section includes the primary and secondary diagnoses documented for the Encounter. Date/Time Primary/Secondary Diagnosis Diagnosis Name Provider Source Apr 01, 2024 11:59 AM PRIMARY Sleep apnea, unspecified DARNELL SIMEON [facility] Apr 01, 2024 11:59 AM SECONDARY Body mass index [BMI] 36.0-36.9, adult DARNELL SIMEON [facility] Apr 01, 2024 11:59 AM SECONDARY Chronic ischemic heart disease, unspecified CAILINDARNELL Sonal [facility] Apr 01, 2024 11:59 AM SECONDARY Essential (primary) hypertension DARNELL SIMEON [facility] Apr 01, 2024 11:59 AM SECONDARY Obesity, unspecified [facility] Plan of Treatment: Future Appointments (+ 6 months) and Future Tests (+/- 45 days) The Plan of Treatment section includes future care activities for the patient from all [place] treatmentfacilities. This section includes future appointments and future orders which are active, pending or scheduled. Future Appointments This section includes appointments that were scheduled to occur 6 months from the date of the Encounter, up to a maximum of 20 appointments. The data comes from all [place] treatment facilities. Appointment Date/Time Appointment Type Appointme nt Facility Name Apr 11, 2024 07:45 AM AMBULATORY - NONE [facility] Apr 18, 2024 09:30 AM [facility] Lab Results: +/- 30 days of the encounter This section includes the Chemistry and Hematology Lab Results on record with [place] for the patient. Radiology Reports and Pathology Reports are provided separately, in subsequent sections. Lab Results This section contains the Chemistry/Hematology Results that were resulted 30 days before or 30 daysafter the date of the Encounter. Date/Time Source Result Type Result - Unit Interpretation Reference Range Specimen Type Comment Apr 11, 2024 07:55 AM [facility] TSH PLASMA Specimen Type: PLASMA No comment entered. Ordering Provider: GURJIT BUSBY Report Released Date/Time: October 11, 2023 01:17 PM Reporting Lab: [facility] [address] [facility] [address] Performing Lab: [facility] [id number] [place] [id number] TSH 2.857 u[IU]/mL 0.360-4.500 Apr 11, 2024 07:55 AM [facility] HEMOGLOBIN A1C BLOOD Specimen Type: B LOLATASHA Comment: Values obtained from A1C measurements can vary. For typical A1C assays, a reported value of 7.0 could actually be between 6.72 and 7.28 if measured by a reference method. A reported value of 9.0 could actually be between 8.73 and 9.27. Ref: http://www.ngsp.org/CAPdata.asp Ordering Provider: GURJIT BUSBY Report Released Date/Time: October 11, 2023 01:17 PM Reporting Lab: [place] [id number] Performing Lab: [place] [phone] HEMOGLOBIN A1C 6.2 H 3.6-5.7 Apr 11, 2024 07:55 AM [facility] PROSTATE SPECIFIC ANTIGEN SERUM Speci men Type: SERUM No comment entered. Ordering Provider: GURJIT BUSBY Report Released Date/Time: October 11, 2023 01:17 PM Reporting Lab: [address] [address] Performing Lab: [place] [phone] PROSTATE SPECIFIC ANTIGEN 3.09 ng/mL <4. 00 Apr 11, 2024 07:55 AM [facility] LIPID PROFILE PLASMA Specimen Type: P LASBRITTANY Comment: DLDLREF RANGE: NEAR OR ABOVE OPTIMAL: [...] October 11, 2023 01:17 PM Reporting Lab: [address] [address] Performing Lab: [place] [phone] CHOLESTEROL 190 mg/dL <199 LDL CHOLESTEROL 149 mg/dL H <99 HDL CHOLESTEROL 35 mg/dL L >60 TRIGLYCERIDE 156 mg/dL H <149 Apr 11, 2024 07:55 AM [facility] URINALYSIS URINE Specimen Type: URINE No comment entered. Ordering Provider: GURJIT BUSBY Report Released Date/Time: October 11, 2023 01:17 PM Reporting Lab: [address] [address] Performing Lab: [address] [address] SPECIFIC GRAVITY 1.009 L 1.016-1.022 URINE GLUCOSE Negative mg/dL Negative URINE PROTEIN Negative mg/dL Negative URINE PH 6.5 5.0-8.0 NITRITE, URINE Negative Negative ESTERASE(WBC) Negative Negative URINE CLARITY Clear Clear URINE BILIRUBIN Negative mg/dL <=0.4 URINE BLOOD Negative mg/dL <0.05 UROBILINOGEN Negative mg/dL <=1 URINE KETONES Negative mg/dL <=9 URINE COLOR Light-Yellow [none] Apr 11, 2024 07:55 AM [facility] COMPREHENSIVE METABOLIC PANEL PLASMA S pecimen Type: [...] October 11, 2023 01:17 PM Reporting Lab: [address] [address] Performing Lab: [address] [address] ALBUMIN 4.0 g/dL 3.2-4.6 ALKALINE PHOSPHATASE 63 [...] 91.0 mL/min Apr 11, 2024 07:55 AM [facility] CBC BLOOD Specimen Type: BLOOD No comment entered. Ordering Provider: GURJIT BUSBY Report Released Date/Time: October 11, 2023 01:17 PM Reporting Lab: [facility] [id number] [place] [phone] Performing Lab: [address] [address] WBC COUNT 6.6 10*3/uL 3.6-11.0 RBC COUNT [...] H 0. 0-0.3 MPV 9.0 fL 7.4-11.4 Vital Signs: All taken on the encounter date This section contains inpatient and outpatient Vital Signs collected on the date of the Encounter. Date/Time Temperature Pulse Blood Pressure Respiratory Rate SP02 Pain Height Weight Body Mass Index Source Apr 01, 2024 11:34 AM 96 SG [facility] Apr 01, 2024 11:34 AM 66 133/76 14 0 242.2 37 [facility] Encounter Notes: All associated encounter notes This section contains the clinical notes associated to the Encounter. Date/Time Encounter Note(s) Provider Source Apr 01, 2024 11:38 AM SLEEP MEDICINE CON SULT: LOCAL TITLE: SLEEP TELEMEDICINE CONSULTATION NOTE (C) STANDARD TITLE: SLEEP MEDICINE CONSULT DATE OF NOTE: APR 01, 2024@11:38 ENTRY DATE: APR 01, 2024@11:38:41 AUTHOR: DARNELL SIMEON COSIGNER: URGENCY: STATUS: COMPLETED Routine Face to Face Appointment KEEN CVT Visit type: New patient visit. Reason for encounter: Sleep apnea History of present illness: 69 year old male seen in [place] [facility] sleep clinic today for initial evaluation. Referred for daytime sleepiness, waking up with dry mouth, fatigue, and his spouse c/o snoring. Today, reports his sleep has drastically improved after he was treated for heart failure exacerbation at [facility] this summer. He no longer snores. He wakes up refreshed and is not drowsy during the day. We discussed the risks of untreated sleep apnea and he's willing to complete home sleep testing. This is a patient with TERESA and is on PAP Therapy: No Sleep related symptoms: Snoring: Resolved after heart failure was treated in summer 2023 EDS or fatigue during the day: No Witnessed apnea: No Waking up choking or gasping for air: Only with congestive heart failure Nocturnal GERD: No Morning headaches: No Sinus congestion or chronic rhinitis: No Dry mouth: Yes, I breathe through my mouth all the time History of MVA or near misses due to sleepiness: No Sleep onset insomnia: No Sleep maintenance insomnia: No Bedtime: 8-10 PM Rise time: 5-5:30 AM, feels refreshed Sleep latency: 15-20 minutes Frequent awakenings: No Nocturia: 2-3x per night, falls back to sleep easily TV or electronics at bedtime: No Naps: No Caffeine: Coffee, 1/2 pot/day Chronic pain that wakes patient up from sleep: No Nightmares: No Dream enactment: No Sleep walking: No Bruxism: No Alcohol: No Smoking: Former, quit at age 38 Recreational drugs: No 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 Lives alone: Lives with Active Problems and PMH: ACTIVE PROBLEM Tinnitus 10/11/2023 Exposure to Potentially Hazardous 08/31/2023 Substance (SCT [id number]) Benign Prostatic Hypertrophy with 07/28/2022 Outflow Obstruction (SCT [id number]) 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/28/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 Chronic obstructive lung disease 01/30/2017 Enlarged prostate 05/02/2016 Chronic sinusitis (SNOMED CT 88048131) 02/21/2018 Hyperlipidemia (SNOMED CT 62818044) 03/26/2015 Essential hypertension (SNOMED CT 03/26/2015 [id number]) Chronic ischemic heart disease (SNOMED 03/26/2015 CT 940870704) Polyp of nasal sinus 07/28/2022 Testicular hypofunction 07/28/2022 Family history of sleep disorders: None known PATIENT ALLERGIES DETAILED ALLERGIES/ADVERSE REACTIONS Type: DRUG Date/Time Reactant Severity Reaction 05/23/2013 10:12 GUAIFENESIN AIRWAY CONSTRICTION 04/27/2006 10:23 CODEINE NAUSEA AND VOMITING AMRS - MEDS (REC SUCCINCT) Active and Recently Inpatient, Outpatient and Clinic Medications (including Supplies): Active Outpatient Medications Status ===== 1) TIOTROPIUM 2.5MCG/ACTUAT 60D ORAL INHL INHALE 2 PUFFS ACTIVE BY MOUTH EVERY DAY FOR CONTROLLER MEDICATION FOR ASTHMA Active Non-VA Medications Status ===== 1) Non-VA ACETAMINOPHEN/DM/DOXYLAMINE LIQUID,ORAL CAPS ACTIVE MOUTH NEEDED 2) Non-VA ALBUTEROL 90MCG (CFC-F) 200D ORAL INHL 1 OR 2 ACTIVE PUFFS BY MOUTH FOUR TIMES A DAY NEEDED 3) Non-VA ALBUTEROL/IPRATROPIUM NEB SOLN,INHL BY MOUTH ACTIVE 4) Non-VA BREZTRI 160/9/4.8MCG/ACT 120D ORAL INHL 2 ACTIVE INHALATIONS BY MOUTH TWICE A DAY 5) Non-VA CARVEDILOL 6.25MG TAB 6.25MG MOUTH TWICE A DAY ACTIVE 6) Non-VA CYANOCOBALAMIN TAB MOUTH ACTIVE 7) Non-VA DAYQUIL 1 CAPSULE MOUTH NEEDED ACTIVE 8) Non-VA ERGOCALCIFEROL (VIT D) CAP,ORAL MOUTH EVERY ACTIVE DAY 9) Non-VA FLUTICASONE 115/SALMET 21MCG 120D INHL 1 PUFF ACTIVE BY MOUTH TWICE A DAY 10) Non-VA FLUTICASONE/SALMETEROL (EQV-ADVAIR) DISK ACTIVE INHL,ORAL BY MOUTH 11) Non-VA FUROSEMIDE 40MG TAB 40MG MOUTH EVERY DAY ACTIVE 12) Non-VA LOSARTAN 50MG TAB 50MG MOUTH EVERY DAY ACTIVE 13) Non-VA MULTIVITAMIN CAP/TAB 1 TAB/CAP MOUTH EVERY DAY ACTIVE 14) Non-VA OMEPRAZOLE 20MG EC CAP 20MG MOUTH EVERY ACTIVE MORNING, ON AN EMPTY STOMACH 15) Non-VA SILDENAFIL CITRATE 100MG TAB 100MG MOUTH ONE ACTIVE TIME 16) Non-VA TAMSULOSIN HCL 0.4MG CAP 0.4MG MOUTH AT ACTIVE BEDTIME 17) Non-VA TUMERIC CAP/TAB MOUTH ACTIVE 18) Non-VA VITAMIN E 180MG (400UNIT) CAP 400UNIT MOUTH ACTIVE EVERY DAY 19) Non-VA ZZFISH OIL 1000MG (500MG DHA/EPA) CAP 1000MG ACTIVE MOUTH EVERY DAY 20 Total Medications Suicide Screen: Patient has been screened for Suicide Risk using the [place]-Suicide Severity Rating Scale (C-SSRS Screener) in the last 30 days. Physical Examination: Physical Exam completed Vitals reviewed: T: 97.4 F [36.3 C] (10/11/2023 12:46) P: 66 (04/01/2024 11:34) R: 14 (04/01/2024 11:34) BP: 133/76 (04/01/2024 11:34) W: 242.2 lb [109.86 kg] (04/01/2024 11:34) BMI: 36.9 Alert & oriented x 3 Normal mood and affect Mustache/goatee Dentition: Upper dentures, no lower teeth Modified Mallampati Class: IV Neck size, measured in clinic: 18 Other Testing or Questionnaire Results: ESS: (score of 10 or higher suggests hypersomnia) ESS Score: 0/24 SANDRINE: SANDRINE score: 4 Assessment/Evaluation: #Suspected sleep apnea although symptoms have improved since CHF has been adequately treated. He does have many risk factors and is agreeable to testing. He's unsure he'd tolerate CPAP. #Obesity, BMI 36 #CHF/HTN, which have been associated with TERESA Plan: - Will proceed with a HSAT with [facility]. Will call with results/plan. - If sleep study - for sleep apnea: Nothing further needed. - If sleep study + for mild/moderate sleep apnea: Bongo Rx nasal EPAP + chinstrap. - If sleep study + for severe sleep apnea: Begin PAP. - Sleep apnea education was provided. - Discussed the ramification of untreated TERESA. - Discussed treatment options including * OAT - not a candidate due to dentures * Bongo-RX - will need chinstrap due to mouth breathing * PAP - Positional therapy was emphasized. - Advise to diet, exercise, and lose weight. - Avoid driving and operating heavy equipment while sleepy. - Sleep hygiene measures reviewed and emphasized. Specifically, we discussed the importance of * Adequate sleep time. - Follow-up with PCP for HTN and CHF. TERESA treatment may help control these conditions and may help reduce cardiovascular risk. I am the Staff Provider. /deya/ DARNELL SIMEON PHYSICIAN SPOT MAN Signed: 04/01/2024 11:59 DARNELL SIMEON [facility]
--- OUTSIDE RECORDS SUMMARY | 2024-04-18 05:30 | XMS_ITS | Encounter Summary ---
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 Date/Time Encounter Type Encounter Description Reason Provider Source Apr 18, 2024 09:30 AM OFFICE O/P EST MOD 30 MIN PRIMARY CARE/MEDICINE ICD-10-CM N40.1 Benign prostatic hyperplasia with lower urinary tract symp GURJIT BUSBY [place] Encounter Template Text not used by [facility] Assessments - Encounter Diagnoses This section includes the primary and secondary diagnoses documented for the Encounter. Date/Time Primary/Secondary Diagnosis Diagnosis Name Provider Source Apr 18, 2024 12:52 PM PRIMARY Benign prostatic hyperplasia with lower urinary tract symp GURJIT BUSBY [facility] Apr 18, 2024 12:52 PM SECONDARY Chronic ischemic heart disease, unspecified GURJIT BUSBY [facility] Apr 18, 2024 12:52 PM SECONDARY Chronic obstructive pulmonary disease, unspecified [facility]IG[facility]JIT [facility] Apr 18, 2024 12:52 PM SECONDARY Essential (primary) hypertension GURJIT BUSBY [facility] Apr 18, 2024 12:52 PM SECONDARY Hyperlipidemia, unspecified QIGURJIT [facility] Apr 18, 2024 12:52 PM SECONDARY Other obstructive and reflux uropathy GURJIT BUSBY Plan of Treatment: Future Appointments (+ 6 months) and Future Tests (+/- 45 days) The Plan of Treatment section includes future care activities for the patient from all [place] treatmentfacilities. This section includes future appointments and future orders which are active, pending or scheduled. Future Appointments This section includes appointments that were scheduled to occur 6 months from the date of the Encounter, up to a maximum of 20 appointments. The data comes from all [place] treatment facilities. Appointment Date/Time Appointment Type Appointme nt Facility Name October 10, 2024 09:15 AM AMBULATORY - NONE [facility] Lab Results: +/- 30 days of the encounter This section includes the Chemistry and Hematology Lab Results on record with [place] for the patient. Radiology Reports and Pathology Reports are provided separately, in subsequent sections. Lab Results This section contains the Chemistry/Hematology Results that were resulted 30 days before or 30 daysafter the date of the Encounter. Date/Time Source Result Type Result - Unit Interpretation Reference Range Specimen Type Comment Apr 11, 2024 07:55 AM [facility] TSH PLASMA Specimen Type: PLASMA No comment entered. Ordering Provider: GURJIT BUSBY Report Released Date/Time: October 11, 2023 01:17 PM Reporting Lab: [facility] [id number] [place] [id number] Performing Lab: [address] [address] TSH 2.857 u[IU]/mL 0.360-4.500 Apr 11, 2024 07:55 AM [facility] HEMOGLOBIN A1C BLOOD Specimen Type: B LOOD [...] October 11, 2023 01:17 PM Reporting Lab: [address] [address] Performing Lab: [place] [id number] HEMOGLOBIN A1C 6.2 H 3.6-5.7 Apr 11, 2024 07:55 AM [facility] PROSTATE SPECIFIC ANTIGEN SERUM Speci men Type: SERUM No comment entered. Ordering Provider: GURJIT BUSBY Report Released Date/Time: October 11, 2023 01:17 PM Reporting Lab: [address] [phone] Performing Lab: [address] [address] PROSTATE SPECIFIC ANTIGEN 3.09 ng/mL <4. 00 Apr 11, 2024 07:55 AM [facility] LIPID PROFILE PLASMA Specimen Type: P LASMA [...] October 11, 2023 01:17 PM Reporting Lab: [address] [address] Performing Lab: [address] [address] CHOLESTEROL 190 mg/dL <199 LDL CHOLESTEROL 149 mg/dL H <99 HDL CHOLESTEROL 35 mg/dL L >60 TRIGLYCERIDE 156 mg/dL H <149 Apr 11, 2024 07:55 AM [facility] URINALYSIS URINE Specimen Type: URINE No comment entered. Ordering Provider: GURJIT BUSBY Report Released Date/Time: October 11, 2023 01:17 PM Reporting Lab: [address] [address] Performing Lab: [address] [address] SPECIFIC GRAVITY 1.009 L 1.016-1.022 URINE GLUCOSE Negative mg/dL Negative URINE PROTEIN Negative mg/dL Negative URINE PH 6.5 5.0-8.0 NITRITE, URINE Negative Negative ESTERASE(WBC) Negative Negative URINE CLARITY Clear Clear URINE BILIRUBIN Negative mg/dL <=0.4 URINE BLOOD Negative mg/dL <0.05 UROBILINOGEN Negative mg/dL <=1 URINE KETONES Negative mg/dL <=9 URINE COLOR Light-Yellow [none] Apr 11, 2024 07:55 AM [facility] COMPREHENSIVE METABOLIC PANEL PLASMA S pecimen Type: [...] October 11, 2023 01:17 PM Reporting Lab: [address] [phone] Performing Lab: [address] [address] ALBUMIN 4.0 g/dL 3.2-4.6 ALKALINE PHOSPHATASE 63 [...] 91.0 mL/min Apr 11, 2024 07:55 AM [facility] CBC BLOOD Specimen Type: BLOOD No comment entered. Ordering Provider: GURJIT BUSBY Report Released Date/Time: October 11, 2023 01:17 PM Reporting Lab: [address] [phone] Performing Lab: [address] [address] WBC COUNT 6.6 10*3/uL 3.6-11.0 RBC COUNT [...] and tobacco- related health factors from the [place] facility where the Encounter took place. Current Smoking Status This section includes the most current smoking, or tobacco-related health factor, from the [place] facility where the Encounter took place. Date/Time Current Smoking Status Comment Facil ity October 11, 2023 01:00 PM [facility]-TOBACCO FORMER USER [facility] Tobacco Use History This section includes a history of the smoking, or tobacco-related health factors, that were collected on or before the date of the Encounter. The data comes from the [place] facility where the Encounter took place. Date/Time [...] Encounter. Date/Time Encounter Note(s) Provider Source Apr 18, 2024 09:39 AM INTERNAL MEDICINE OUTPATIENT NOTE: LOCAL TITLE: PRIMARY CARE OUTPATIENT NOTE (T) STANDARD TITLE: INTERNAL MEDICINE OUTPATIENT NOTE DATE OF NOTE: APR 18, 2024@09:39 ENTRY DATE: APR 18, 2024@09:39:35 AUTHOR: GURJIT BUSBY COSIGNER: URGENCY: STATUS: COMPLETED In-person Note 69yo Reason for Visit: Here for follow up visit. He is now seeing urology- being treated for an infection. Reports being in [facility] a few months ago for pneumonia. Sees Dr Dewey and Dr Hobbs plus a urologist for his civilian care. States tamsulosin was increased, otherwise he thinks meds are the same. 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 GURJIT BUSBY Chronic obstructive lung disease 01/30/2017 NÉSTORJANEEJUAN JOSE Large prostate 05/02/2016 DONAL NEGRON Chronic sinusitis (SNOMED CT 67953313) 02/21/2018 MARISABEL GRANADOS Hyperlipidemia (SNOMED CT 78460435) 03/26/2015 DONAL NEGRON Essential hypertension (SNOMED CT 19015061) 03/26/2015 DONAL NEGRON Chronic ischemic heart disease (SNOMED CT 03/26/2015 DONAL NEGRON [id number]) 5 stents placed Jun 2009 Polyp of nasal sinus 07/28/2022 GURJIT BUSBY Testicular hypofunction 07/28/2022 GURJIT BUSBY REVIEW OF SYSTEMS: (denies the following unless indicated otherwise): mood concerns headache fatigue/weight loss dysphagia/hoarseness chest pain dyspnea abdominal pain difficult or bloody elimination PATIENT ALLERGIES DETAILED ALLERGIES/ADVERSE REACTIONS Type: DRUG Date/Time Reactant Severity Reaction 05/23/2013 10:12 GUAIFENESIN AIRWAY CONSTRICTION 04/27/2006 10:23 CODEINE NAUSEA AND VOMITING AMRS - MEDS (REC SUCCINCT) Active and Recently Inpatient, Outpatient and Clinic Medications (including Supplies): Active Outpatient Medications Status ========= 1) ALBUTEROL SO4 0.083% INHL 3ML INHALE 1 AMPULE BY ACTIVE MOUTH EVERY 6 HOURS NEEDED FOR SHORTNESS OF BREATH/WHEEZING FOR SHORTNESS OF BREATH, USING NEBULIZER. Inactive Outpatient Medications Status ========= 1) TIOTROPIUM 2.5MCG/ACTUAT 60D ORAL INHL INHALE 2 PUFFS BY MOUTH EVERY DAY FOR CONTROLLER MEDICATION FOR ASTHMA Active Non-VA Medications Status ========= 1) Non-VA ACETAMINOPHEN/DM/DOXYLAMINE LIQUID,ORAL CAPS ACTIVE MOUTH [...] DHA/EPA) CAP 1000MG ACTIVE MOUTH EVERY DAY 21 Total Medications Report Released Date/Time: Apr 11, 2024@17:48 Provider: GURJIT BUSBY Specimen: URINE. [facility] [id number] Specimen Collection Date: Apr 11, 2024@07:55 Test name Result units Ref. range Site Code URINE PH 6.5 5.0 - 8.0 [541] URINE COLOR Light-Yellow Ref: [none] [541] URINE CLARITY Clear Ref: Clear [541] SPECIFIC GRAVITY 1.009 L 1.016 - 1.022 [541] URINE PROTEIN Negative mg/dL Ref: Negative [541] URINE GLUCOSE Negative mg/dL Ref: Negative [541] URINE KETONES Negative mg/dL Ref: <=9 [541] URINE BILIRUBIN Negative mg/dL Ref: <=0.4 [541] UROBILINOGEN Negative mg/dL Ref: <=1 [541] URINE BLOOD Negative mg/dL Ref: <=0.05 [541] ESTERASE(WBC) Negative Andrea/uL Ref: Negative [541] NITRITE, URINE Negative Ref: Negative [541] == Report Released Date/Time: Apr 11, 2024@18:20 Provider: GURJIT BUSBY Specimen: SERUM. [facility] [id number] Specimen Collection Date: Apr 11, 2024@07:42 Test name Result units Ref. range Site Code PROSTATE SPECIFIC ANTIGEN 3.09 ng/mL Ref: <=4.00 [541] == Report Released Date/Time: Apr 11, 2024@18:34 Provider: GURJIT BUSBY Specimen: BLOOD. [facility] [id number] Specimen Collection Date: Apr 11, 2024@07:42 Test name Result units Ref. range Site Code HEMOGLOBIN A1C 6.2 H % 3.6 - 5.7 [541] Eval: Values obtained from A1C measurements can vary. For typical A1C assays, a Eval: reported value of 7.0 could actually be between 6.72 and 7.28 if measured Eval: by a reference method. A reported value of 9.0 could actually be between Eval: 8.73 and 9.27. Ref: https://ngsp.org/CAPdata.asp WBC COUNT 6.6 K/cmm 3.6 - 11.0 [541] RBC COUNT 4.59 M/cmm 4.47 - 5.83 [541] HGB 13.6 g/dL 13.6 - 17.4 [541] HCT 40.5 % 40.0 - 51.0 [541] MCV 88.2 fL 80.0 - 96.0 [541] MCH 29.7 pg 27.0 - 31.0 [541] MCHC 33.6 g/dL 31.5 - 36.5 [541] RDW 15.6 % 11.2 - 15.8 [541] PLT 166 K/cmm 150 - 400 [541] MPV 9.0 fL 7.4 - 11.4 [541] NEUTROPHIL % 54.5 % 54.0 - 78.0 [541] LYMPHS % 25.1 % 21.0 - 51.0 [541] MONOCYTES % 10.2 H % 4.0 - 8.0 [541] EOSINOPHIL % 9.6 H % 0.0 - 3.0 [541] BASOPHIL % 0.6 % 0.0 - 3.0 [541] ABSOLUTE NEUTROPHIL COUNT 3.6 K/cmm 1.9 - 8.6 [541] ABSOLUTE LYMPHOCYTE COUNT 1.7 K/cmm 0.8 - 5.0 [541] ABSOLUTE MONOCYTE COUNT 0.7 K/cmm 0.1 - 0.9 [541] ABSOLUTE EOSINOPHIL COUNT 0.6 H K/cmm 0.0 - 0.3 [541] ABSOLUTE BASOPHIL COUNT 0.0 K/cmm 0.0 - 0.3 [541] NUCLEATED RBC/100WBC 0.1 /100 WBC None Established - None Established [541] Comment: Values obtained from A1C measurements can vary. For typical A1C assays, a reported value of 7.0 could actually be between 6.72 and 7.28 if measured by a reference method. A reported value of 9.0 could actually be between 8.73 and 9.27. Ref: http://www.ngsp.org/CAPdata.asp == Report Released Date/Time: Apr 11, 2024@18:38 Provider: GURJIT BUSBY Specimen: PLASMA. [facility] 1115 [id number] Specimen Collection Date: Apr 11, 2024@07:42 Test name Result units Ref. range Site Code GLUCOSE 120 H mg/dL 82 - 115 [541] Eval: REFERENCE RANGE CHANGED FOR GLU ON 12.05.23 SODIUM 137 mmol/L 136 - 145 [541] Eval: REFERENCE RANGE CHANGED ON 12.05.23 POTASSIUM 3.9 mmol/L 3.5 - 5.1 [541] CHLORIDE 108 H mmol/L 98 - 107 [541] CO2 21 L mmol/L 23 - 31 [541] BUN 10 mg/dL 8.4 - 25.7 [541] CREATININE 0.9 mg/dL 0.72 - 1.25 [541] Eval: REFERENCE RANGES CHANGED FOR CREAT ON 02.24.24 CALCIUM 9.0 mg/dL 8.8 - 10.0 [541] EGFR (CALCULATED) 91.0 mL/min [541] Eval: eGFR results >60 are imprecise. Many variables affect the calculated Eval: result. Interpretation of eGFR results >60 must be monitored Eval: over time. ANION GAP 12.0 mmol/L 10 - 20 [541] AST/SGOT 35 H U/L 5 - 34 [541] Eval: REFERENCE RANGE CHANGED FOR AST ON 12.21.23 ALT/SGPT 42 U/L Ref: <=55 [541] Eval: REFERENCE RANGE CHANGED FOR ALT ON 12.21.23 ALKALINE PHOSPHATASE 63 U/L 40 - 150 [541] BILIRUBIN, TOTAL 0.6 mg/dL 0.2 - 1.2 [541] Eval: REFERENCE RANGE CHANGED FOR TBIL ON 12.05.23 PROTEIN, TOTAL 6.2 L g/dL 6.4 - 8.3 [541] ALBUMIN 4.0 g/dL 3.2 - 4.6 [541] CHOLESTEROL 190 mg/dL Ref: <=199 [541] LDL CHOLESTEROL 149 H mg/dL Ref: <=99 [541] HDL CHOLESTEROL 35 L mg/dL Ref: >=60 [541] TRIGLYCERIDE 156 H mg/dL Ref: <=149 [541] TSH 2.857 uIU/mL 0.360 - 4.500 [541] Comment: DLDLREF RANGE: NEAR OR ABOVE OPTIMAL: 100-129 mg/dL BORDERLINE DLDLHIGH: 130-159 mg/dL HIGH: 160-189 mg/dL VERY HIGH: >=190 TRIG REF RANGE: BORDERLINE HIGH: 150-199 mg/dL HIGH: 200-499 mg/dL TRIG VERY HIGH: >=500 mg/dL CREA eGFR was calculated using the CKD-EPI 2020 equation. CHOL REF RANGE: BORDERLINE HIGH: 200-239 mg/dL HIGH: >=240 mg/dL == PHYSICAL EXAM: Vital Signs: T: 97.5 F [36.4 C] (04/18/2024 09:31) P: 70 (04/18/2024 09:31) R: 16 (04/18/2024 09:31) BP: 133/80 (04/18/2024 09:31) Pain: 0 (04/18/2024 09:31) Height: 68 in [172.7 cm] (08/16/2018 08:49) Weight: 241 lb [109.32 kg] (04/18/2024 09:31) Pulse Ox: 97% (04/18/2024 09:31) General: appears well Head, Ears, Eyes, Nose, and Throat: Neck: Chest/Lungs: diminished in bases Cardiovascular: RRR Gastrointestinal: Extremities: no edema ASSESSMENT/PLAN: reviewed labs with , has outside providers prescribing meds states he has enough of his meds, he [facility]- he will call if he would like to switch his medications. HTN- BP at goal- continue meds HLD- statin is not on med list- he used to take, states his says they are bad for him. LDL is 149- he will pia labs with cardiology and civilian PCP, encouraged to take a medication for his lipids COPD- now using saline nebulizers, states working well, sees civilian pulmoolgy, using mx nyalers HEALTH MAINTENANCE/CLINICAL REMINDERS: Clinical Reminders Activity Sexual Orientation: The patient thinks of their sexual orientation as: Straight or Heterosexual MEDICATION RECONCILIATION Medication Reconciliation report reviewed and discussed with patient/caregiver. [facility] prescription medications, non-VA prescription medications, OTC and herbal medications reviewed: Patient/caregiver verifies that the list is complete and accurate and voices understanding. Patient/caregiver in possession of printed medication list. FOLLOW-UP: 6 months with labs I am the Staff Provider. TOTAL TIME SPENT: Spent 30 minutes in care of this patient today including review of records, exam, and placing orders. /deya/ GURJIT BUSBY NURSE PRACTITIONER Signed: 04/18/2024 12:52 [facility] Apr 18, 2024 09:23 AM PRIMARY CARE JACQUI CELAYA NOTE: LOCAL TITLE: OUTPATIENT NURSING INTAKE NOTE (T) STANDARD TITLE: PRIMARY CARE NURSING NOTE DATE OF NOTE: APR 18, 2024@09:23 ENTRY DATE: APR 18, 2024@09:23:45 AUTHOR: MICHAEL HWANG COSIGNER: URGENCY: STATUS: COMPLETED Hemoglobin A1C Results: Collection DT Specimen Test Name Result Units Ref Range 04/11/2024 07:42 BLOOD HEMOGLOBIN A1C 6.2 H % 3.6 - 5.7 Comment: Values obtained from A1C measurements can vary. For typical A1C Comment: assays, a reported value of 7.0 could actually be between 6.72 and Comment: 7.28 if measured by a reference method. A reported value of 9.0 Comment: could actually be between 8.73 and 9.27. Ref: Comment: http://www.ngsp.org/CAPdata.asp 10/04/2023 07:55 BLOOD HEMOGLOBIN A1C 5.8 H % 3.6 - 5.7 Comment: Values obtained from A1C measurements can vary. For typical A1C Comment: assays, a reported value of 7.0 could actually be between 6.72 and Comment: 7.28 if measured by a reference method. A reported value of 9.0 Comment: could actually be between 8.73 and 9.27. Ref: Comment: http://www.ngsp.org/CAPdata.asp 07/28/2022 14:49 BLOOD HEMOGLOBIN A1C 5.8 H % 3.6 - 5.7 Comment: Values obtained from A1C measurements can vary. For typical A1C Comment: assays, a reported value of 7.0 could actually be between 6.72 and Comment: 7.28 if measured by a reference method. A reported value of 9.0 Comment: could actually be between 8.73 and 9.27. Ref: Comment: http://www.Idc917p.org/CAPdata.asp Review Allergies Allergies reviewed and updated per protocol. ALLERGIES/ADVERSE REACTIONS Type: DRUG Date/Time Reactant Severity Reaction 05/23/2013 10:12 GUAIFENESIN AIRWAY CONSTRICTION 04/27/2006 10:23 CODEINE NAUSEA AND VOMITING MEDICATION LIST REVIEW REPORT Patient states no change in documented OTC/Herbals at this visit. 1. Has the patient been feeling sad or distressed? No 2. Has the patient been having personal or family problems? No 3. Has the patient been experiencing worry and/or stress? No 4. Has the patient been having problems with drugs and/or alcohol? No 5. [place] [facility] pocket card was provided to patient. No/patient declined [facility] not documented this visit. Clinical Reminders Activity COVID-19 Immunization: Refused Pfizer Monovalent COVID-19 vaccine Immunization: COVID-19 (PFIZER), MRNA, LNP-S, PF, TAHMINA-SUCROSE, 30 MCG/0.3 ML (AGES 12+ YEARS) Refusal Reason: PATIENT DECISION Patient refuses all immunization(s) in the COVID-19 group Date Documented: 04/18/24 09:29 Herpes Zoster (Shingles) Vaccine: The patient declines to receive the recommended dose of zoster (shingles) vaccine. Immunization: ZOSTER RECOMBINANT Refusal Reason: PATIENT DECISION Patient refuses all immunization(s) in the ZOSTER group Date Documented: 04/18/24 09:29 Influenza Immunization: Deferral / Refusal The patient declines to receive the recommended dose of seasonal influenza vaccine. Immunization: INFLUENZA, UNSPECIFIED FORMULATION Refusal Reason: PATIENT DECISION Patient refuses all immunization(s) in the FLU group Date Documented: 04/18/24 09:29 Patient Education Documentation: LEARNING NEEDS ASSESSMENT: The patient/family/significant other reports no changes in learning needs. /es/ MICHAEL HWANG LICENSED PRACTICAL NURSE Signed: 04/18/2024 09:48 MICHAEL HWANG [facility]
--- OUTSIDE RECORDS SUMMARY | 2024-10-05 13:47 | XMS_ITS ---
Author Organization [facility] Address [address] [place] [address] Care Team Providers Care Security Public Safety Officer Name Role Phone Tin Klein Primary Care Provider [phone] Results Component Value Reference Range Notes CBC AUTO DIFF Reviewed date:10/06/2024 02:02:37 PM Interpretation: Performing Lab: Notes/Report: [facility] , White Blood Count 9.6 4.0-11.0 10 3/uL Red Blood Count 4.89 4.70-6.10 10 6/uL Hemoglobin 14.0 14.0-18.0 g/dL Hematocrit 40.9 42.0-54.0 % Mean Corpuscular Volume 83.6 80.0-94.0 fL Mean Corpuscular Hemoglobin 28.6 25.9-34.0 pg Mean Corpuscular HGB Conc 34.2 29.9-35.2 g/dL Red Cell Distribution Width 14.6 11.0-15.0 % Platelet Count 203 150-450 10 3/uL Mean Platelet Volume 9.8 9.5-13.5 fL Neutrophils Percent Auto 72.2 43.0-75.0 % Lymphocytes Percent Auto 10.9 20.5-60.0 % Monocytes Percent Auto 10.7 1.7-12.0 % Eosinophils Percent Auto 5.3 0.9-7.0 % Basophils Percent Auto 0.5 0.2-2.0 % Immature Granulocytes Pct Auto 0.4 0.0-0.5 % Neutrophils Absolute Auto 6.9 1.4-6.5 10 3/uL Lymphocytes Absolute Auto 1.1 1.2-3.8 10 3/uL Monocytes Absolute Auto 1.0 0.3-0.8 10 3/uL Eosinophils Absolute Auto 0.5 0.0-0.7 10 3/uL Basophils Absolute Auto 0.1 0.0-0.1 10 3/uL Immature Granulocytes Abs Auto 0.04 0.00-0.03 10 3/uL Performing Lab: see note ML - [facility] REASON FOR VISIT In ER Encounters Encounter Location Date Provider Diagnosis [facility] [address] [place] [address] 10/05/2024 [facility] (current) use of inhaled steroids Z79.51 and Hyponatremia E87.1 Assessments Encounter Date Diagnosis (ICD Code) Assessment Notes Treatment Notes Treatment Clinical Notes Section Notes 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/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 steroids (ICD-10 - Z79.51) 10/05/2024 Hyponatremia (ICD-10 - E87.1) Plan Of Treatment Pending Test Test Name Order Date CMP - Comprehensive Metabolic Panel 09/25 Next Appt Details Provider Name:Evens Morgan, 11/05/2024 09:00:00 AM, [address] [place], [address], Provider Name:Tin Klein, 08:00:00 AM, [address] [place], [address], Progress Notes * Kwadwo CALDERONDOB:[birth year] (69 yo M)Acc No.[id number]:10/05/2024 Patient: Barbara Kwadwo PRASAD :1955 A ge:69 Y S ex:Male Address:[address] [place] [address], [place] [address] Subjective: * Chief Complaints: * I n ER * Medical History: * Surgical History: * Hospitalization/Major Diagno stic Procedure: * Medications: Objective: * Vitals: * Physical Examination: Assessment: * Assessment: 1. L alfred term (current) use of inhaled steroids - Z79.51 (Primary) 2 . H yponatremia - E87.1 Plan: * Treatment: 2. H yponatremia L AB: CMP - Comprehensive Metabolic Panel L AB: CBC AUTO DIFF * Procedure Codes: * true * Date: Generated for Estiven reno/Cira/Ursula on: 0 10/21/2024 07:24 AM EDT
--- OUTSIDE RECORDS SUMMARY | 2024-10-09 06:24 | XMS_ITS ---
Author Organization [facility] in [place] Address [address] [place] [address] Care Team Providers Care Director Digital Communications Name Role Phone Tin Kelin Primary Care Provider [phone] REASON FOR VISIT going to ER Encounters Encounter Location Date Provider Diagnosis [facility] [address] [place] [address] 10/09/2024 Tin Klein Plan Of Treatment Next Appt Details Provider Name:Evens Morgan, 11/05/2024 09:00:00 AM, [address] [place], [address], Provider Name:Tin Charlotte Klein, 08:00:00 AM, [address] [place], [address], Progress Notes * Kwadwo CALDERONDOB:[birth year] (69 yo M)Acc No.[id number]:10/09/2024 Patient: Barbara Kwadwo PRASAD :1955 A ge:69 Y S ex:Male Address:[address] [place] [address] * true * Date: Generated for Bentleyi shadia/Fasaundrag/eTransmitting on: 0 10/21/2024 07:23 AM EDT
--- OUTSIDE RECORDS SUMMARY | 2024-10-10 10:39 | XMS_ITS ---
Author Organization [facility] in [place] Address [address] [place] [address] Care Team Providers Care Food Quality Tester Name Role Phone Tin Klein Primary Care Provider Encounters Encounter Location Date Provider Diagnosis [facility] [address] [place] [address] 10/10/2024 Tin Klein Plan Of Treatment Next Appt Details Provider Name:Evens Morgan, 11/05/2024 09:00:00 AM, [address] [place], [address], Provider Name:Tin Charlotte Klein, 08:00:00 AM, [address] [place], [address], Progress Notes * Kwadwo CALDERONDOB:[birth year] (69 yo M)Acc No.[id number]:10/10/2024 Patient: Barbara Kwadwo PRASAD :1955 A ge:69 Y S ex:Male Address:[address] [place] [address] * true * Date: Generated for Printi ng/Faxing/eTransmitting on: 0 10/21/2024 07:24 AM EDT
--- OUTSIDE RECORDS SUMMARY | 2024-10-16 21:38 | XMS_ITS ---
Author Name Auto Generated Organization OHIP Care Team Providers Care Trolley [employer] Mechanic Name Role Phone RENE CASTRO Attending Unavailable RENE CASTRO Referring Unavailable SERA HOBBS Primary Care Unavailable John ZAPATA Attending Unavailable Yasemin Peralta Attending Unavailable SU SAMPSON Attending Unavailable SERA HOBBS Referring Unavailable SU SAMPSON Attending Unavailable John ZAPATA Admitting Unavailable John ZAPATA Attending Unavailable John ZAPATA Referring Unavailable SU SAMPSON Admitting Unavailable ADRIÁN, SU Esquivel Attending Unavailable ADRIÁN, SU Esquivel Admitting Unavailable ADRIÁN, SU Esquivel Attending Unavailable ADRIÁN, SU Esquivel Attending Unavailable John ZAPATA Attending Unavailable BENNY, John Hauser Attending Unavailable John ZAPATA Referring Unavailable Orquidea Sapp Consulting Unavailable Ricardo Aguero Admitting Unavailable Vincenzo Caraballo Attending Unavailable Sera Hobbs Primary Care Unavailable Orquidea Sapp Consulting Unavailable Keila Davis Consulting Unavailable CastroRene Consulting Unavailable Tank Daley Consulting Unavail able Charito Rodriguez Consulting Unavailable Vanessa, Kannan Consulting Unavailab Penelope Bellamy Consulting Unavailable Katia Mckeon Consulting Unavailable Katie Dalton Consulting Unavailab moisés Huffman, Mirian Consulting Unavailable Joanne Edouard Consulting Unavailable BENJY ALAS Attending Unavailable JESENIA, DEBBI Cates Attending Unavailable ANJEL, SERA Jimenez Referring Unavailable ANJEL, SERA Jimenez Attending Unavailable ANJEL, SERA Jimenez Referring Unavailable GURJIT BUSBY Attending Unavailable RISDEBBI GARNETT Attending Unavailable ANJEL, SERA Jimenez Referring Unavailable PETMARYBETH MCGRATH Attending Unavailable RISMARIOLA, DEBBI Cates Referring Unavailable RISDEBBI GARNETT Attending Unavailable PROBLEMS DATE TYPE CONDITION / CODE ATTENDING STATUS [facility] 10/16/2024 Unknown Acute on chronic systolic (congestive) heart failure / I50.23(ICD-10) Vincenzo Caraballo [facility] 10/16/2024 Unknown Pneumonia, unspecified organism / J18.9(ICD-10) Vincenzo Caraballo [facility] 10/16/2024 Unknown Acute respirator y failure with hypoxia / J96.01(ICD-10) Vincenzo Caraballo [facility] 10/16/2024 Unknown Presence of rigo nary angioplasty implant and graft / Z95.5(ICD-10) Vincenzo Caraballo [facility] 10/16/2024 Unknown 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 / I25.10(ICD-10) Vincenzo Caraballo [facility] 05/15/2024 Admitting Diagnosis Body mass index (BMI) 36.0-36.9, adult / Z68.36(ICD-10) [facility] 02/13/2023 Admitting Diagnosis Personal history of nicotine dependence / Z87.891(ICD-10) [facility] 02/13/2023 Admitting Diagnosis 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 / I25.10(ICD-10) [facility] 02/13/2023 Admitting Diagnosis Essential (primary) hypertension / I10(ICD-10) [facility] 02/13/2023 Admitting Diagnosis Ischemic cardiomyopathy / I25.5(ICD-10) [facility] 02/13/2023 Admitting Diagnosis Mixed hyperlipidemia / E78.2(ICD-10) [facility] 02/13/2023 Admitting Diagnosis Presence of coronary angioplasty implant and graft / Z95.5(ICD-10) [facility] PROCEDURES No Procedure Records Found RESULTS HEMOGRAM CBC WITHOUT DIFF Collected: 10/18/2024 9:07 AM Status: F Source: [facility] TYPE CODE TESTS RESULT OUT OF RANGE REFERENCE UNITS LAB WBC White Blood Count 11.5 High 4.1-10.5 10*3/uL LAB RBC Red Blood Count 5.20 Normal 3.90-5.60 10*6/u L LAB HGB Hemoglobin 14.9 Normal 13.0-17.0 g/dL LAB HCT Hematocrit 43.5 Normal 38.8-50.0 % LAB MCV Mean Corpuscular Volume 83.8 Normal 83.5-101 fL LAB MCH Mean Corpuscular Hemoglobin 28.7 Normal 27.5-35.2 pg LAB MCHC Mean Corpuscular HGB Conc 34.2 Normal 32.5-35.6 g/dL LAB RDW Red Cell Distribution Width 15.8 High 12.0-14.8 % LAB PLT Platelet Count 194 Normal 150-450 10*3/uL LAB MPV Mean Platelet Volume 8.0 Normal 6.6-10.1 fL Result Comment: PERFORMED BY : [facility] [address] PATHOLOGIST TEST BAKER ERASMO SADLER M.D. Performed By: #### BHAKTI KRISHNA , BMP #### [place] [id number] [facility] BASIC METABOLIC PANEL Collected: 10/18/2024 9:07 AM Status: F Source: [facility] TYPE CODE TESTS RESULT OUT OF RANGE REFERENCE UNITS LAB GLU Glucose 124 High 70-100 mg/dL Result Comment: Random Gluco se Reference Range is dependent on time and content of last meal. Glucose of more than 200 mg/dL in a nonstressed, ambulatory subject supports the diagnosis of Diabetes Mellitus. ADA recommended reference range LAB BUN Blood Urea Nitrogen 20 Normal 7-25 mg/dL LAB CREATT Creatinine 0.76 Normal 0.70-1.30 mg/dL LAB GFReNR Estimated GFR >60.0 mL/Min LAB NA Sodium 129 Low 136-145 mmol/L LAB K Potassium 4.0 Normal 3.5-5.1 mmol/L LAB CL Chloride 98 Normal 98-107 mmol/L LAB CO2 Carbon Dioxide 22.4 Normal 21.0-31.0 mmol/L LAB GAP Anion Gap 12.6 Normal 6.0-15.0 meq/L LAB CA Calcium 8.4 Low 8.6-10.3 mg/dL LAB CRCLPHA Creatinine Clr Calc Pharmacy 96.55 Performed By: #### BHAKTI KRISHNA , BMP #### [address] MAGNESIUM Collected: 9:07 AM Status: F Source: [facility] TYPE CODE TESTS RESULT OUT OF RANGE REFERENCE UNITS LAB MG Magnesium 2.3 Normal 1.9-2.7 mg/dL Result Comment: PERFORMED BY : [place] [address] PATHOLOGIST TEST BAKER ERASMO SADLER M.D. Performed By: #### BHAKTI KRISHNA , BMP #### [place] [id number] [facility] TROPONIN I HIGH SENSITIVITY Collected: 10/17/2024 11:57 AM Status: F Source: [facility] TYPE CODE TESTS RESULT OUT OF RANGE REFERENCE UNITS LAB HS TROP Troponin I High Sensitivity 14 Normal 0-20 Result Comment: The Troponin units of report have been changed to meet the Chest Pain Accreditation requirement, element EC5.M1l2. Troponin units are changed from pg/ml to ng/L. Also, the decimal is removed and results are in whole numbers. PERFORMED BY: [place] [address] PATHOLOGIST TEST BAKER ERASMO SADLER M.D. Performed By: #### HS TROP # ### [address] XR CHEST 2V* Observed: 10/17/2024 9:45 AM Status: COMPLETED Source: [facility] EN[facility] [place] [address] [place] [address] XRay Report Signed Patient: Demarcus Panchal MR#: [id number] : 1955 Acct:[id number] Age/Sex: 69 / M ADM Date: 10/16/24 Loc: Room: [address] [place] [address] Type: ADM IN Attending Dr: Vincenzo Caraballo DO Copies to: Vincenzo Caraballo DO Ordering Provider: Vincenzo Caraballo DO Date of Service: 10/17/24 XR/XR chest 2V*: Increased shortness of breath PA AND LATERAL CHEST: CLINICAL HISTORY: Cough, shortness breath, CHF COMPARISON: 06/14/2023 FINDINGS: Mildly enlarged cardiomediastinal silhouette. Minimal perihilar congestion. Hazy mid to lower lung opacities. No effusion. No pneumothorax. XR/XR chest 2V* IMPRESSION: Minimal perihilar congestion. Minimal hazy interstitial opacities question interstitial edema versus atypical/viral infection. Impression dictated by: Miguel Trejo M.D. 10/17/2024 9:46 AM Dictation Location: [place] [address] Transcribed By: [facility] 10/17/2446 Dictated By: Miguel Trejo MD 10/17/2445 Signed By: <Electronically signed by Miguel Trejo MD in OV> 10/17/24 09 GLUCOSE POCT GLUCOMETERS Collected: 10/17/2024 9:12 A M Status: F Source: [facility] TYPE CODE TESTS RESULT OUT OF RANGE REFERENCE UNITS LAB GLUPOC Glucose Poc Glucometers 144 mg/dL Result Comment: Random Gluco se Reference Range is dependent on time and content of last meal. Glucose of more than 200 mg/dL in a nonstressed, ambulatory subject supports the diagnosis of Diabetes Mellitus. LAB COMM1 Commemt1 Glu2: Cleaned Meter Result Comment: PERFORMED BY : [facility] [place] [address] PATHOLOGIST TEST BAKER FIORELLA BRIAN M.D. Performed By: #### GLULS ### # Point of Care testing , COMPLETE BLOOD COUNT AUTO DIFF Collected: 10/17/2024 5:00 AM Status: F Source: [facility] TYPE CODE TESTS RESULT OUT OF RANGE REFERENCE UNITS LAB WBC White Blood Count 14.6 High 4.1-10.5 10*3/uL LAB UNWBC Uncorrected WBC 14.6 High 4.1-10.5 10*3/uL LAB RBC Red Blood Count 5.31 Normal 3.90-5.60 10*6/u L LAB HGB Hemoglobin 15.2 Normal 13.0-17.0 g/dL LAB HCT Hematocrit 44.7 Normal 38.8-50.0 % LAB MCV Mean Corpuscular Volume 84.2 Normal 83.5-101 fL LAB MCH Mean Corpuscular Hemoglobin 28.5 Normal 27.5-35.2 pg LAB MCHC Mean Corpuscular HGB Conc 33.9 Normal 32.5-35.6 g/dL LAB RDW Red Cell Distribution Width 15.5 High 12.0-14.8 % LAB PLT Platelet Count 211 Normal 150-450 10*3/uL LAB MPV Mean Platelet Volume 8.1 Normal 6.6-10.1 fL LAB NE% Neutrophils % (Auto) 74.5 . % LAB LY% Lymphocytes % (Auto) 16.3 . % LAB MO% Monocytes % (Auto) 7.2 . % LAB EO% Eosinophils % (Auto) 1.8 . % LAB BA% Basophils % (Auto) 0.2 . % LAB NRBC% NRBC% 0.1 Normal 0-0.5 /100{WBC} LAB NE# Neutrophils # (Auto) 10.9 High 1.8-7.7 10*3/uL LAB LY# Lymphocytes # (Auto) 2.4 Normal 1.00-4.8 10*3/uL LAB MO# Monocytes # (Auto) 1.1 High 0.0-0.8 10*3/uL LAB EO# Eosinophils # (Auto) 0.3 Normal 0.0-0.45 10*3/uL LAB BA# Basophils # (Auto) 0.0 Normal 0.0-0.2 10*3/uL Result Comment: PERFORMED BY : [place] [address] PATHOLOGIST TEST BAKER FIORELLA BRIAN M.D. Performed By: #### BMP, CBC, MG #### [address] BASIC METABOLIC PANEL Collected: 10/17/2024 5:00 AM Status: F Source: [facility] TYPE CODE TESTS RESULT OUT OF RANGE REFERENCE UNITS LAB GLU Glucose 131 High 70-100 mg/dL Result Comment: Random Gluco se Reference Range is dependent on time and content of last meal. Glucose of more than 200 mg/dL in a nonstressed, ambulatory subject supports the diagnosis of Diabetes Mellitus. ADA recommended reference range LAB BUN Blood Urea Nitrogen 22 Normal 7-25 mg/dL LAB CREATT Creatinine 0.89 Normal 0.70-1.30 mg/dL LAB GFReNR Estimated GFR >60.0 mL/Min LAB NA Sodium 134 Low 136-145 mmol/L LAB K Potassium 4.5 Normal 3.5-5.1 mmol/L Result Comment: Hemolysis is present at a level that could interfere with the result. Contact lab if redraw is required LAB CL Chloride 98 Normal 98-107 mmol/L LAB CO2 Carbon Dioxide 27.2 Normal 21.0-31.0 mmol/L LAB GAP Anion Gap 13.3 Normal 6.0-15.0 meq/L LAB CA Calcium 8.8 Normal 8.6-10.3 mg/dL LAB CRCLPHA Creatinine Clr Calc Pharmacy 87.13 Performed By: #### BMP, CBC, MG #### [address] MAGNESIUM Collected: 5:00 AM Status: F Source: [facility] TYPE CODE TESTS RESULT OUT OF RANGE REFERENCE UNITS LAB MG Magnesium 2.2 Normal 1.9-2.7 mg/dL Result Comment: PERFORMED BY : [facility] [address] [place] [address] PATHOLOGIST TEST BAKER FIORELLA BRINA M.D. Performed By: #### BMP, CBC, MG #### [facility] [address] PATIENT EDUCATION Observed: 08/26/2024 8:40 AM Status: F Source: [facility] Patient Education Urology Benign Prostatic Hyperplasia Benign [...] Follow these instructions at home: ??? Take mgpu-nnj-kuuumym and prescription medicines only as told by [...] pain. ??? Your symptoms do not get better with treatment. ??? You develop side effects from the medicine you are taking. ??? Your urine becomes very dark or has a bad smell. ??? Your lower abdomen becomes distended and you have trouble passing urine. Get help right away if: ??? You have a fever or chills. ??? You suddenly cannot urinate. ??? You feel light-headed or very dizzy, or you faint. ??? There are large amounts of blood or clots in your urine. ??? Your urinary problems become hard to manage. ??? You develop moderate to severe low back or flank pain. The flank is the side of your body between the ribs and the hip. These symptoms may be an emergency. Get help right away. Call 911. ??? Do not wait to see if the symptoms will go away. ??? Do not drive yourself to the hospital. Summary ??? Benign prostatic hyperplasia (BPH) is an enlarged prostate that is caused by the normal aging process. It is not caused by cancer. ??? An enlarged prostate can press on the urethra. This can make it hard to pass urine. ??? This condition is more likely to develop in men older than 50 years. ??? Get help right away if you suddenly cannot urinate. This information is not intended to replace advice given to you by your health care provider. Make sure you discuss any questions you have with your health care provider. Document Revised: 11/30/2021 Document Reviewed: 11/30/2021 Elsevier Patient Education ? 2023 [employer] UROLOGY OFFICE/CLINIC NOTE Observed: 05/2024 7:44 AM Status: F Source: [facility] Urology Office/Clinic Note Chief Complaint F/u Urolift [...] and history for this patient from Dr. Zapata. I have reviewed and verified the staff [...] Information BENNY SHELLEY, John Hauser, URL [address] [place] [id number]- Additional Instructions: 6-8 wks with PVR Patient Education Benign Prostatic Hyperplasia I, Dayanara Murrell, personally scribed for Dr. Zapata on 08/26/2024 08:41:13. . Portions of this record may have been created with voice recognition artificial intelligence software, specifically ARKeX, Rome2rio and or RENTISH. Substitutions may have occurred due to the inherent limitations of voice recognition and artificial intelligence software. 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 Elevated PSA GERD [...] Recorded pneumococcal 23-valent vaccine 05/28/2018 Recorded diphtheria/pertussis, acel/tetanus adult 08/10/2017 Recorded zoster vaccine live 12/21/2016 Recorded pneumococcal 23-valent vaccine 09/30/2012 Recorded Td(adult) unspecified formulation 2007 Recorded Lab Results Ambulatory Point of Care Results Bilirubin Urine Dipstick: Negative (08/26/24 08:23:00) Blood Urine Dipstick: Negative (08/26/24 08:23:00) Glucose Urine Dipstick: Negative (08/26/24 08:23:00) Ketones Urine Dipstick: Negative (08/26/24 08:23:00) Leukocytes Urine Dipstick: Negative (08/26/24 08:23:00) Nitrite Urine Dipstick: Negative (08/26/24 08:23:00) Protein Urine Dipstick: Negative (08/26/24 08:23:00) Specific Wiseman Urine Dipstick: 1.015 (08/26/24 08:23:00) Urine Appearance Urine Dipstick: Clear (08/26/24 08:23:00) Urine Color Urine Dipstick: Yellow (08/26/24 08:23:00) Urobilinogen Urine Dipstick: Normal 0.2-1 EU/dl (08/26/24 08:23:00) pH Urine Dipstick: 6 (08/26/24 08:23:00) Result Comment: Electronical ly Signed By: John ZAPATA MD\.br\Date and Time Signed: 08/26/24 08:47 EDT\.br\Electronically Co-Signed By: Dayanara Murrell\.br\Date and Time Co-Signed: 08/26/24 08:41 EDT AMBULATORY VISIT SUMMARY Observed: 08/26 7:44 AM Status: F Source: [facility] Ambulatory Visit Summary DEMARCUS PANCHAL :1955 Visit Date:08/26/2024 Ambulatory Visit Instructions Your Diagnosis BPH with obstruction/lower urinary tract symptoms Urinary retention Elevated PSA Your Care Team Attending Physician - John ZAPATA MD Primary Care Physician - Sera Hobbs PA-C This Is Your Medications List tamsulosin [...] Appointments Sunday 8:00 AM EDT With: John ZAPATA MD Where: [facility] [address] 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 Take eszn-cxt-znnycuy and prescription medicines only as told by [...] pain. ??? Your symptoms do not get better with treatment. ??? You develop side effects from the medicine you are taking. ??? Your urine becomes very dark or has a bad smell. ??? Your lower abdomen becomes distended and you have trouble passing urine. Get help right away if: ??? You have a fever or chills. ??? You suddenly cannot urinate. ??? You feel light-headed or very dizzy, or you faint. ??? There are large amounts of blood or clots in your urine. ??? Your urinary problems become hard to manage. ??? You develop moderate to severe low back or flank pain. The flank is the side of your body between the ribs and the hip. These symptoms may be an emergency. Get help right away. Call 911. ??? Do not wait to see if the symptoms will go away. ??? Do not drive yourself to the hospital. Summary ??? Benign prostatic hyperplasia (BPH) is an enlarged prostate that is caused by the normal aging process. It is not caused by cancer. ??? An enlarged prostate can press on the urethra. This can make it hard to pass urine. ??? This condition is more likely to develop in men older than 50 years. ??? Get help right away if you suddenly cannot urinate. This information is not intended to replace advice given to you by your health care provider. Make sure you discuss any questions you have with your health care provider. Document Revised: 11/30/2021 Document Reviewed: 11/30/2021 [employer] Patient Education ??? 2023 [employer]. PATIENT EDUCATION Observed: 08/18/2024 3:05 PM Status: F Source: [facility] Patient Education Urology Benign Prostatic Hyperplasia Benign [...] Follow these instructions at home: ??? Take xwhg-fsn-srkndvk and prescription medicines only as told by [...] pain. ??? Your symptoms do not get better with treatment. ??? You develop side effects from the medicine you are taking. ??? Your urine becomes very dark or has a bad smell. ??? Your lower abdomen becomes distended and you have trouble passing urine. Get help right away if: ??? You have a fever or chills. ??? You suddenly cannot urinate. ??? You feel light-headed or very dizzy, or you faint. ??? There are large amounts of blood or clots in your urine. ??? Your urinary problems become hard to manage. ??? You develop moderate to severe low back or flank pain. The flank is the side of your body between the ribs and the hip. These symptoms may be an emergency. Get help right away. Call 911. ??? Do not wait to see if the symptoms will go away. ??? Do not drive yourself to the hospital. Summary ??? Benign prostatic hyperplasia (BPH) is an enlarged prostate that is caused by the normal aging process. It is not caused by cancer. ??? An enlarged prostate can press on the urethra. This can make it hard to pass urine. ??? This condition is more likely to develop in men older than 50 years. ??? Get help right away if you suddenly cannot urinate. This information is not intended to replace advice given to you by your health care provider. Make sure you discuss any questions you have with your health care provider. Document Revised: 11/30/2021 Document Reviewed: 11/30/2021 Elsevier Patient Education ? 2023 [employer]. UROLOGY OFFICE/CLINIC NOTE Observed: 2:09 PM Status: F Source: [facility] Urology Office/Clinic Note HPI Staff 69 year [...] and history for this patient from Dr. Zapata. I have reviewed and verified the staff [...] Hauser, URL [address] [address]- Additional Instructions: Follow up August 26 2024 or sooner if needed. Patient Education Benign Prostatic Hyperplasia Shree Munoz, personally scribed for JOSEPH Hoskins APRN on 08/18/2024 15:05:54. . Documentation recorded by the gregor Stallworth accurately reflects the services(s) I performed and decisions made by me. Authenticated by Yasemin Peralta APRN, FNP- C on 08/18/2024 16:08:39. 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 Elevated PSA GERD [...] Recorded pneumococcal 23-valent vaccine 05/28/2018 Recorded diphtheria/pertussis, acel/tetanus adult 08/10/2017 Recorded zoster vaccine live 12/21/2016 Recorded pneumococcal 23-valent vaccine 09/30/2012 Recorded Td(adult) unspecified formulation 2007 Recorded Lab Results Ambulatory Point of Care Results Bilirubin Urine Dipstick: Negative (08/18/24 14:29:00) Blood Urine Dipstick: Negative (08/18/24 14:29:00) Glucose Urine Dipstick: Negative (08/18/24 14:29:00) Ketones Urine Dipstick: Negative (08/18/24 14:29:00) Leukocytes Urine Dipstick: Negative (08/18/24 14:29:00) Nitrite Urine Dipstick: Negative (08/18/24 14:29:00) Protein Urine Dipstick: Negative (08/18/24 14:29:00) Specific Wiseman Urine Dipstick: <=1.005 (08/18/24 14:29:00) Urine Appearance Urine Dipstick: Clear (08/18/24 14:29:00) Urine Color Urine Dipstick: Yellow (08/18/24 14:29:00) Urobilinogen Urine Dipstick: Normal 0.2-1 EU/dl (03/24/25 14:29:00) pH Urine Dipstick: 6 (08/18/24 14:29:00) Result Comment: Electronical ly Signed By: JOSEPH Peralta APRN, Yasemin Skelton\.br\Date and Time Signed: 08/18/24 16:08 EDT\.br\Electronically Co-Signed By: Shree Stallworth\.br\Date and Time Co-Signed: 08/18/24 15:06 EDT AMBULATORY VISIT SUMMARY Observed: 08/18 2:09 PM Status: F Source: [facility] Ambulatory Visit Summary DEMARCUS PANCHAL :1955 Visit Date:08/18/2024 Ambulatory Visit Instructions Your Diagnosis BPH with obstruction/lower urinary tract symptoms Urinary retention Elevated PSA Your Care Team Attending Physician - JOSEPH Peralta APRN, [place] X Primary Care Physician - Sera Hobbs PA-C This Is Your Medications List tamsulosin [...] Appointments Sunday 8:00 AM EDT With: John ZAPATA MD Where: [facility] [address] 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 Take vsmt-sge-jrajibz and prescription medicines only as told by [...] pain. ??? Your symptoms do not get better with treatment. ??? You develop side effects from the medicine you are taking. ??? Your urine becomes very dark or has a bad smell. ??? Your lower abdomen becomes distended and you have trouble passing urine. Get help right away if: ??? You have a fever or chills. ??? You suddenly cannot urinate. ??? You feel light-headed or very dizzy, or you faint. ??? There are large amounts of blood or clots in your urine. ??? Your urinary problems become hard to manage. ??? You develop moderate to severe low back or flank pain. The flank is the side of your body between the ribs and the hip. These symptoms may be an emergency. Get help right away. Call 911. ??? Do not wait to see if the symptoms will go away. ??? Do not drive yourself to the hospital. Summary ??? Benign prostatic hyperplasia (BPH) is an enlarged prostate that is caused by the normal aging process. It is not caused by cancer. ??? An enlarged prostate can press on the urethra. This can make it hard to pass urine. ??? This condition is more likely to develop in men older than 50 years. ??? Get help right away if you suddenly cannot urinate. This information is not intended to replace advice given to you by your health care provider. Make sure you discuss any questions you have with your health care provider. Document Revised: 11/30/2021 Document Reviewed: 11/30/2021 [employer] Patient Education ??? 2023 [employer] AMBULATORY VISIT SUMMARY Observed: 08/15 7:49 AM Status: F Source: [facility] Ambulatory Visit Summary DEMARCUS PANCHAL :1955 Visit Date:08/15/2024 Ambulatory Visit Instructions Your Care Team Attending Physician - John ZAPATA MD Primary Care Physician - Anjel DELACRUZ, Sera Calabrese Referring Physician - John ZAPATA MD This Is Your Medications List acetaminophen-hydrocodone (Center 325 mg-5 mg oral tablet) acetaminophen-tramadol (Ultracet [...] What How Much When Instructions Unchanged acetaminophen-hydrocodone (Center 325 mg-5 mg oral tablet) See instructions [...] congestive heart failure 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 Please share your experience with us by completing your survey. We appreciate your feedback and thank you for choosing us for your care. OUTPATIENT SURGERY DISCHARGE INSTRUCTION Observed: 08/08/2024 2:02 PM Status: C Source: [facility] Outpatient Surgery Discharge Instruction [address] [address] Patient Discharge Instructions PERSON INFORMATION Name: DEMARCUS PANCHAL Date of : 1955 Current Date: 08/08/2024 14:02:09 PHYSICIANS Admitting Physician: John ZAPATA MD Comment: Discharge Diagnosis: Other obstructive and reflux uropathy DEMARCUS PANCHAL has been given the following list of follow-up instructions, prescriptions, and patient education materials: IF UNABLE TO CONTACT YOUR PHYSICIAN AND YOU FEEL IT IS AN EMERGENCY, GO TO THE NEAREST EMERGENCY ROOM OR CALL 911 Follow up: With: Address: When: John ZAPATA [address] [place] [address], [address], [place] [phone] Business (1) Comments: Push the fluids to keep the urine clear. Stay on the Flomax for now. Some discharge instructions have been provided. If the bleeding gets severe, or the catheter is clogging from blood clots, you need to go to the ER for irrigation. Will make a one week appt. to remove the catheter. Type Location Start [facility] Urology CALL PAT FT [facility] Urology Surgical Services 08/13/2024 12:00 PM [...] we do a follow up call? Yes No I was present when discharge instructions were given Patient Signature Date Clinican/Nurse Signature Date You may receive a survey from [id number] asking you to rate your care experience. Your feedback is important and will help us understand what we do well and how we can improve the quality of care we provide to you, your loved ones and our community. It???s an honor to serve you. Thank you for choosing [facility] PATIENT EDUCATION Observed: 08/08/2024 2:02 PM Status: C Source: [facility] Patient Education Urolift ??? Some men may [...] seek help from a hospital emergency room. INPATIENT PATIENT SUMMARY Observed: 07/26 2:02 PM Status: C Source: [facility] Inpatient Patient Summary [address] [address] Clinical Summary Person Information Name: DEMARCUS PANCHAL Age: 69 Years : 1955 Sex: Male PCP: Sera Hobbs PA-C Marital Status: Race: White Ethnicity: Non- or Language: Mozambican Visit Id: Visit Reason: BPH WITH LUTS Speciality: Acuity: Enc Type: Outpatient Med Service: Surgery Arrival: 08/08/2024 12:42:16 Discharge: Dispo Type: Address: [address] [place] [id number] Provider Notes: Diagnosis: Other obstructive and reflux uropathy Problems Active BPH with obstruction/lower urinary tract symptoms Chronic prostatitis Urinary retention Elevated PSA Chronic systolic congestive heart failure 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 Care Team Members: Attending Physician: John ZAPATA MD Consulting Physician: Referring Physician: John ZAPATA MD Follow up: With: Address: When: John ZAPATA [address] [facility], [address], [employer] [address] [place], [place] [id number] [facility] (1) Comments: Push the fluids to keep the urine clear. Stay on the Flomax for now. Some discharge instructions have been provided. If the bleeding gets severe, or the catheter is clogging from blood clots, you need to go to the ER for irrigation. Will make a one week appt. to remove the catheter. Type Location Start Finish [facility] Urology CALL PAT FT [facility] Urology Surgical Services 08/13/2024 12:00 PM 08/13/2024 12:30 PM Confirmed Patient Education Information: EU - Urolift Discharge Instructions (Custom) OPERATIVE REPORT Observed: 08/08/2024 1:41 PM Status: C Source: [facility] Operative Report Patient: DEMARCUS PANCHAL Age: 69 years Sex: Male : 1955 Associated Diagnoses: None Author: John ZAPATA MD Procedure Operative Information Details: Date/ Time: 08/08/2024 13:41:00. Pre-Op Dx: Acute urinary retention (TRC34-IQ R33.8, Working, Medical), BPH with obstruction/lower urinary tract symptoms (UXR31-WI N40.1, Working, Medical). Post-Op Dx: Same. Anesthesia [...] procedure (10 mg diazepam, 5/325 mg of Center), Local Anesthesia (60cc 2% Xylocaine liquid inserted [...] pending at the time of this dictation. Jewell catheter to be placed if he fails to void. . Specimens Removed: None. Devices Implanted: 8 Urolift devices. Postoperative Information Discharge: Home without Jewell if he passes voiding trial, versus home with Jewell to leg bag if unable to void. Then plan follow up in 1-2 weeks. . The patient voided about 100 cc without problems, but the urine is bloody. Discussed options. Will place three way Jewell, push fluids, and may need ER evaluation and CBI if the bleeding gets more persistent/severe. He agrees with the plan. Result Comment: Electronical ly Signed By: John ZAPATA MD\.br\Date and Time Signed: 08/08/24 13:51 EDT MAIN OR PREOPERATIVE RECORD Observed: 1:30 PM Status: C Source: [facility] Main OR Preoperative Record Holding Area Document Type FTURO Summary Primary Physician: John ZAPATA MD Finalized Date/Time: 08/08/24 13:16:05 Pt. Name: DEMARCUS PANCHAL/Sex: 1955 Male Med Rec #: [id number] Physician: John ZAPATA MD Financial #: [id number] Pt. Type: O Room/Bed: / Admit/Disch: 08/08/24 [...] No Pain Comment: N/A Skin Integrity Intact, [place], Warm, & Dry Vitals - EU Blood Pressure 146/74 Pulse 58 bpm Respirations 18 br/min SPO2 95 % Additional None Specimens Comment N/A Specimens Collected Residual Amount - 0 RN Reviewed Yes Post Void Last Modified By: Bonny Brenner 08/08/24 13:15:24 Finalized By: Bonny Brenner Document Signatures Signed By: Bonny rBenner 08/08/24 13:15 Bonny Brenner 08/08/24 13:16 MAIN OR INTRAOPERATIVE RECORD Observed: 08/08/2024 1:25 PM Status: F Source: [facility] Main OR Intraoperative Recor d IntraOp Document Type FTURO Summary Primary Physician: John ZAPATA MD Finalized Date/Time: 08/08/24 14:01:11 Pt. Name: KVNGDEMARCUSO.B./Sex: 1955 Male Med Rec #: [id number] Physician: John ZAPATA MD Financial #: [id number] Pt. Type: O Room/Bed: / Admit/Disch: 08/08/24 [...] 1 Entry 2 Entry 3 Case Attendee John ZAPATA MD RN, Dian Jackman Role Performed Surgeon - Primary Prints And Drawings Curator - Primary Scrub - Primary Time In 08/08/24 13:20:00 08/08/24 13:20:00 08/08/24 13:20:00 Time Out 08/08/24 14:00:00 08/08/24 14:00:00 08/08/24 14:00:00 Procedure CYSTOSCOPY LOCAL CYSTOSCOPY LOCAL CYSTOSCOPY LOCAL UROLIFT(.) UROLIFT(.) UROLIFT(.) Comments Last Modified By: Demetrice RN, Leena Hernandez RN, Leena Hernandez RN, Leena Hauser 08/08/24 Celina Hauser 08/08/24 Celina Hauser 08/08/24 14:00:53 14:00:53 14:00:53 Surgical Procedures FTURO Entry 1 Procedure Description Procedure CYSTOSCOPY LOCAL UROLIFT Modifiers . Surgeon Description CYSTOSCOPY, UROLIFT Primary Procedure Yes Primary Surgeon John ZAPATA MD Start 08/08/24 13:25:00 Stop 08/08/24 13:41:00 Anesthesia Type Local Surgical Service Urology Wound Class 2 - Clean-Contaminated Last Modified By: Demetrice CAMACHO, Leena Hauser 08/08/24 13:43:48 General Case Data FTURO Pre-Care Text: Classifies surgical wound, implements aseptic technique, initiates traffic control Entry 1 Case Information OR URO 1 FT Case Level None Wound Class 2 - Clean-Contaminated Specialty Urology Preop Diagnosis BPH WITH LUTS Postop Same As Preop Yes Postop Diagnosis BPH WITH LUTS Outcomes Met? Yes Last Modified By: Demetrice CAMACHO, Leena Hauser 08/08/24 13:25:27 Post-Care Text: The patient is [...] Verified Availability Equipment, Implant, Time Out John ZAPTAA MD, Verified (If Medication Participants Demetrice CAMACHO, Leena Applicable) Jayme Cash Laura C Time Out [...] CARTRIDGE CARTRIDGE CARTRIDGE Serial Number Lot Number [id number] [employer]OTRACT NEOTRACT NEOTRACT Catalog ???# [id number] Size Expiration Date 08/19/25 08/19/25 01/22/26 Usage Data Implant Site PROSTATE PROSTATE PROSTATE Quantity 1 5 2 Temperature Reconstitution Method Outcomes Met? Yes Yes Yes Last Modified By: Demetrice CAMACHO, Leena Hernandez RN, Leena Burch RN 08/08/24 Celina Hauser 08/08/24 Celina Hauser 08/08/24 [...] labeled are any equipment (including patient problems to be name), if applicable addressed Sign Out Complete 08/08/24 13:41:00 Last Modified By: Leena Hernandez RN 08/08/24 13:43:47 Case Comments <None> Finalized By: Leena Hernandez RN Document Signatures Signed By: Leena Hernandez RN 08/08/24 14:01 UROLOGY OFFICE/CLINIC NOTE Observed: 3:40 PM Status: F Source: [facility] Urology Office/Clinic Note Chief Complaint Cysto HPI [...] Prescriptions sent. Follow-up With When Contact Information BENNY SHELLEY, John Hauser, URL [address] [place] [phone] Additional Instructions: schedule [employer] Patient Education Prostatic Urethral Lift Alexander, Dayanara Murrell, personally scribed for Dr. Zapata on 06/23/2024 15:40:59. . Documentation recorded by the scribe, Dayanara Murrell, accurately reflects the services(s) I performed and decisions made by me. Authenticated by Dr. Zapata on 06/23/2024 15:42:23. Portions of this record may have been created with voice recognition artificial intelligence software, specifically [employer]X, Rome[employer]rio and or RENTISH. Substitutions may have occurred due to the inherent limitations of voice recognition and artificial intelligence software. 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 Medications albuterol carvedilol 6.25 mg Tab, 6.25 mg= 1 tab(s), Oral, BID Cipro 500 mg Tab, See Instructions losartan 50 mg Tab, 50 mg= 1 [...] Tobacco Use:. Never Smokeless Tobacco Use:. Cigarettes, 06/23/2024 Family History Hyperlipidemia: Father. Hypertension: Father. Immunizations Vaccine Date Status influenza virus vaccine, inactivated 04/16/2019 Recorded pneumococcal 13-valent vaccine 08/16/2018 Recorded influenza virus vaccine, inactivated 08/16/2018 Recorded pneumococcal 23-valent vaccine 05/28/2018 Recorded diphtheria/pertussis, acel/tetanus adult 08/10/2017 Recorded zoster vaccine live 12/21/2016 Recorded pneumococcal 23-valent vaccine 09/30/2012 Recorded Td(adult) unspecified formulation 2007 Recorded Result Comment: Electronical ly Signed By: John ZAPATA MD\.br\Date and Time Signed: 06/23/24 15:44 EST\.br\Electronically Co-Signed By: Dayanara Murrell\.br\Date and Time Co-Signed: 06/23/24 15:41 EST PATIENT EDUCATION Observed: 06/23/2024 3:40 PM Status: F Source: [facility] Patient Education Urology Prostatic Urethral Lift Prostatic [...] including vitamins, herbs, eye drops, creams, and xmqp-asc-ktdkazb medicines. ??? Any problems you or family [...] tells you to take them. ??? Taking avog-fyj-fbzfnky medicines, vitamins, herbs, and supplements. Surgery safety [...] occurs with age (benign prostatic hypertrophy, BPH). ??? The procedure is performed with a thin device called a cystoscope. This device is inserted through the tip of the penis and moved up the urethra to reach the prostate. This is less invasive than other procedures that require an incision. ??? If you will be going home [...] provider. Document Revised: 12/09/2021 Document Reviewed: 12/09/2021 [employer] Patient Education ? 2023 [employer]. UROLOGY OFFICE/CLINIC NOTE Observed: 06/2023 12:25 PM Status: F Source: [facility] Urology Office/Clinic Note Chief Complaint 2 week [...] Contact Information ADRIÁN DELACRUZ, SU Esqu[place], URL [address] [place] [address] Additional Instructions: Schedule Cysto Patient Education Urinary Incontinence Acute Urinary Retention, Male Prostate Cancer Screening Shree Munoz, personally scribed for MAGED Pedraza on 04/28/2024 12:26:18. . Documentation recorded by the gregor Stallworth_ accurately reflects the services(s) I performed and decisions made by me. Authenticated by Su Sampson PA-C on 04/28/2024 13:36:57. 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 Elevated PSA GERD [...] Protein Urine Dipstick: Negative (04/28/24 12:04:00) Specific Wiseman Urine Dipstick: 1.020 (04/28/24 12:04:00) Urine Appearance Urine Dipstick: Clear (04/28/24 12:04:00) Urine Color Urine Dipstick: Yellow (04/28/24 12:04:00) Urobilinogen Urine Dipstick: Normal 0.2-1 EU/dl (04/28/24 12:04:00) pH Urine Dipstick: 6.5 (04/28/24 12:04:00) Result Comment: Electronical ly Signed By: SU SAMPSON PA-C\.br\Date and Time Signed: 04/28/24 13:37 EST\.br\Electronically Co-Signed By: Shree Stallworth.br\Date and Time Co-Signed: 04/28/24 12:30 EST PATIENT EDUCATION Observed: 04/28/2024 12:02 PM Status: C Source: [facility] Patient Education Oncology Prostate Cancer Screening Prostate [...] Where to find more information ??? The [place] [employer]: www.cancer.org ??? [place] [employer]: www.auanet.org Contact a health care [...] gland adds fluid to semen during ejaculation. ??? Prostate cancer screening may identify cancer at an early stage, when the cancer can be treated more easily and is less likely to have spread to other areas of the body. ??? The prostate-specific antigen (PSA) test is the recommended screening test for prostate cancer, but it has associated risks. ??? Discuss the risks and benefits of prostate [...] provider. Document Revised: 11/07/2021 Document Reviewed: 11/07/2021 [employer] Patient Education ? 2023 [employer]Urology Urinary Incontinence Urinary incontinence refers to a condition in which a person is unable to control where and when to pass urine. A person with this condition will urinate involuntarily. This means that the person urinates when he or she does not mean to. What are the causes? This condition may be caused by: ??? Medicines. ??? Infections. ??? Constipation. ??? Overactive bladder muscles. ??? Weak bladder muscles. ??? Weak pelvic floor muscles. These muscles provide support for the bladder, intestine, and, in women, the uterus. ??? Enlarged prostate in men. The prostate is a gland near the bladder. When it gets too big, it can pinch the urethra. With the urethra blocked, the bladder can weaken and lose the ability to empty properly. ??? Surgery. ??? Emotional factors, such as anxiety, stress, or post-traumatic stress disorder (PTSD). ??? Spinal cord injury, nerve injury, or other neurological conditions. ??? Pelvic organ prolapse. This happens in women when organs move out of place and into the vagina. This movement can prevent the bladder and urethra from working properly. What increases the risk? The following factors may make you more likely to develop this condition: ??? Age. The older you are, the higher the risk. ??? Obesity. ??? Being physically inactive. ??? and childbirth. ??? Menopause. ??? Diseases that affect the nerves or spinal cord. ??? Long-term, or chronic, coughing. This can increase pressure on the bladder and pelvic floor muscles. What are the signs or symptoms? Symptoms may vary depending on the type of urinary incontinence you have. They include: ??? A sudden urge to urinate, and passing urine involuntarily before you can get to a bathroom (urge incontinence). ??? Suddenly passing urine when doing activities that force urine to pass, such as coughing, laughing, exercising, or sneezing (stress incontinence). ??? Needing to urinate often but urinating only a small amount, or constantly dribbling urine (overflow incontinence). ??? Urinating because you cannot get to the bathroom in time due to a physical disability, such as arthritis or injury, or due to a communication or thinking problem, such as Alzheimer's disease (functional incontinence). How is this diagnosed? This condition may be diagnosed based on: ??? Your medical history. ??? A physical exam. ??? Tests, such as: ? Urine tests. ? X-rays of your kidney and bladder. ? Ultrasound. ? CT scan. ? Cystoscopy. In this procedure, a health care provider inserts a tube with a light and camera (cystoscope) through the urethra and into the bladder to check for problems. ? Urodynamic testing. These tests assess how well the [...] have and its cause. Treatment may include: ??? Lifestyle changes, such as: ? Quitting smoking. ? Maintaining a healthy weight. ? Staying active. Try to get 150 minutes of moderate-intensity exercise every week. Ask your health care provider which activities are safe for you. ? Eating a healthy diet. ? Avoid high-fat foods, like fried foods. ? Avoid refined carbohydrates like white bread and white rice. ? Limit how much alcohol and caffeine you drink. ? Increase your fiber intake. Healthy sources of fiber include beans, whole grains, and fresh fruits and vegetables. ??? Behavioral changes, such as: ? Pelvic floor muscle exercises. ? Bladder training, such as lengthening the amount of time between bathroom breaks, or using the bathroom at regular intervals. ? Using techniques to suppress bladder urges. This can include distraction techniques or controlled breathing exercises. ??? Medicines, such as: ? Medicines to relax the bladder muscles and prevent bladder spasms. ? Medicines to help slow or prevent the growth of a man's prostate. ? Botox injections. These can help relax the bladder muscles. ??? Treatments, such as: ? Using pulses of electricity to help change bladder reflexes (electrical nerve stimulation). ? For women, using a medical record administrator to prevent urine leaks. This is a small, tampon-like, disposable device that is inserted into the urethra. ? Injecting collagen or carbon beads (bulking agents) into the urinary sphincter. These can help thicken tissue and close the bladder opening. ? Surgery. Follow these instructions at home: Lifestyle ??? Limit alcohol and caffeine. These can fill your bladder quickly and irritate it. ??? Keep yourself clean to help prevent odors and skin damage. Ask your health care provider about special skin creams and cleansers that can protect the skin from urine. ??? Consider wearing pads or adult diapers. Make sure to change them regularly, and always change them right after experiencing incontinence. General instructions ??? Take yodf-pdk-cckypoc and prescription medicines only as told by your health care provider. ??? Use the bathroom about every 3?4 hours, even if you do not feel the need to urinate. Try to empty your bladder completely every time. After urinating, wait a minute. Then try to urinate again. ??? Make sure you are in a relaxed position while urinating. ??? If your incontinence is caused by nerve problems, keep a log of the medicines you take and the times you go to the bathroom. ??? Keep all follow-up visits. This is important. Where to find more information ??? National [place] of Diabetes and Digestive and Kidney Diseases: www.niddk.nih.gov ??? [place] [employer] Association: www.urologyhealth.org Contact a health care provider if: ??? You have pain that gets worse. ??? Your incontinence gets worse. Get help right away if: ??? You have a fever or chills. ??? You are unable to urinate. ??? You have redness in your groin area or down your legs. Summary ??? Urinary incontinence refers to a condition in which a person is unable to control where and when to pass urine. ??? This condition may be caused by medicines, infection, weak bladder muscles, weak pelvic floor muscles, enlargement of the prostate (in men), or surgery. ??? Factors such as older age, obesity, and childbirth, menopause, neurological diseases, and chronic coughing may increase your risk for developing this condition. ??? Types of urinary incontinence include urge incontinence, stress incontinence, overflow incontinence, and functional incontinence. ??? This condition is usually treated first with [...] provider. Document Revised: 12/17/2020 Document Reviewed: 12/17/2020 [employer] Patient Education ? 2023 [employer]Acute Urinary Retention, Male Acute urinary retention is a condition in which a person is unable to pass urine or can only pass a little urine. This condition can happen suddenly and last for a short time. If left untreated, it can become long-term (chronic) and result in kidney damage or other serious complications. What are the causes? This condition may be caused by: ??? Obstruction or narrowing of the tube that drains the bladder (urethra). This may be caused by surgery, problems with nearby organs, or injury to the bladder or urethra. ??? Problems with the nerves in the bladder. ??? Tumors in the area of the pelvis, bladder, or urethra. ??? Certain medicines. ??? Bladder or urinary tract infection. ??? Constipation. What increases the risk? This condition is more likely to develop in older men. As men age, their prostate may become larger and may start to press or squeeze on the bladder or the urethra. Other chronic health conditions can increase the risk of acute urinary retention. These include: ??? Diseases such as multiple sclerosis. ??? Spinal cord injuries. ??? Diabetes. ??? Degenerative cognitive conditions, such as delirium or dementia. ??? Psychological conditions. A man may hold his urine due to trauma or because he does not want to use the bathroom. What are the signs or symptoms? Symptoms of this condition include: ??? Trouble urinating. ??? Pain in the lower abdomen. How is this diagnosed? This condition is diagnosed based on a physical exam and your medical history. You may also have other tests, including: ??? An ultrasound of the bladder or kidneys or both. ??? Blood tests. ??? A urine analysis. ??? Additional tests may be needed, such as a CT scan, MRI, and kidney or bladder function tests. How is this treated? Treatment for this condition may include: ??? Medicines. ??? Placing a thin, sterile tube (catheter) into the bladder to drain urine out of the body. This is called an indwelling urinary catheter. After it is inserted, the catheter is held in place with a small balloon that is filled with sterile water. Urine drains from the catheter into a collection bag outside of the body. ??? Behavioral therapy. ??? Treatment for other conditions. If needed, you may be treated in the hospital for kidney function problems or to manage other complications. Follow these instructions at home: Medicines ??? Take iqzs-jyh-xttjdiv and prescription medicines only as told by your health care provider. Avoid certain medicines, such as decongestants, antihistamines, and some prescription medicines. Do not take any medicine unless your health care provider approves. ??? If you were prescribed an antibiotic medicine, take it as told by your health care provider. Do not stop using the antibiotic even if you start to feel better. General instructions ??? Do not use any products that contain nicotine or tobacco. These products include cigarettes, chewing tobacco, and vaping devices, such as e-cigarettes. If you need help quitting, ask your health care provider. ??? Drink enough fluid to keep your urine pale yellow. ??? If you have an indwelling urinary catheter, follow the instructions from your health care provider. ??? Monitor any changes in your symptoms. Tell your health care provider about any changes. ??? If instructed, monitor your blood pressure at home. Report changes as told by your health care provider. ??? Keep all follow-up visits. This is important. Contact a health care provider if: ??? You have uncomfortable bladder contractions that you cannot control (spasms). ??? You leak urine with the spasms. Get help right away if: ??? You have chills or a fever. ??? You have blood in your urine. ??? You have a catheter and the following happens: ? Your catheter stops draining urine. ? Your catheter falls out. Summary ??? Acute urinary retention is a condition in which a person is unable to pass urine or can only pass a little urine. If left untreated, this condition can result in kidney damage or other serious complications. ??? An enlarged prostate may cause this condition. As men age, their prostate gland may become larger and may press or squeeze on the bladder or the urethra. ??? Treatment for this condition may include medicines and placement of an indwelling urinary catheter. ??? Monitor any changes in your symptoms. Tell your health care provider about any changes. This information is not intended to replace advice given to you by your health care provider. Make sure you discuss any questions you have with your health care provider. Document Revised: 02/02/2021 Document Reviewed: 02/02/2021 [employer] Patient Education ? 2023 [employer] PSA TOTAL Collected: 4 8:22 AM Status: F Source: [facility] TYPE CODE TESTS RESULT OUT OF RANGE REFERENCE UNITS LAB 2857-1([facility]) PROSTATE SPECIFIC AG:MCNC:PT:S ER/PLAS:QN: 2.3 Normal 0.1-3.5 ng/mL Result Comment: The concentr ation of PSA determined by different manufacturers can vary due to differences in assay methods and reagent specificity. Values obtained from different assay methods cannot be used interchangeably. The methodology used for this result was chemiluminescence using [employer]'s Access Hybritech PSA reagent. Performed By: #### [id number] #### [facility] [address] [place] [address] UROLOGY OFFICE/CLINIC NOTE Observed: 1:12 PM Status: F Source: [facility] Urology Office/Clinic Note Chief Complaint new patient referral [...] palpation. Assessment/Plan New patient referred by Dr. Hobbs for elevated PSA, BPH w/ LUTS and urinary retention. Recent hospitalization: 02/14-02/16/24 - admit overnight to Obs w/ chills & weakness, no fever. Found to have leukocytosis w/ unclear etiology of infection. WBC improved, patient d/c home 02/16-02/20/24 - to ED w/ fever, cough. Admitted for PNA, COPD exacerbation. Tx w/ IV rocephin/azithromycin/steroids. Unable to urinate, PVR 480 mL s/p jewell insertion 02/16. Jewell removed prior to d/c. Sent home on [...] PSA -Schedule cysto Documentation recorded by the scrangelica Dyson PA-C accurately reflects the services(s) I performed and decisions made by me. Authenticated by Su Sampson PA-C on 04/16/2024 14:04:40. I, Tatiana Dyson PA-C, personally scribed for Su Sampson PA-C on 04/16/2024 13:21:20. . Follow-up With When Contact Information SU SAMPSON PA-C, URL [address] [place] 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 Never Smokeless Tobacco Use:., 04/16/2024 Family History Hyperlipidemia: Father. Hypertension: Father. Lab Results Ambulatory Point of Care Results Bilirubin Urine Dipstick: Negative (04/16/24 09:43:00) Blood Urine Dipstick: Negative (04/16/24 09:43:00) Glucose Urine Dipstick: Negative (04/16/24 09:43:00) Ketones Urine Dipstick: Negative (04/16/24 09:43:00) Leukocytes Urine Dipstick: Negative (04/16/24 09:43:00) Nitrite Urine Dipstick: Negative (04/16/24 09:43:00) Protein Urine Dipstick: Negative (04/16/24 09:43:00) Specific Wiseman Urine Dipstick: 1.015 (04/16/24 09:43:00) Urine Appearance Urine Dipstick: Clear (04/16/24 09:43:00) Urine Color Urine Dipstick: Light yellow (04/16/24 09:43:00) Urobilinogen Urine Dipstick: Normal 0.2-1 EU/dl (04/16/24 09:43:00) pH Urine Dipstick: 7 (04/16/24 09:43:00) Result Comment: Electronical ly Signed By: SU SAMPSON PA-C\.br\Date and Time Signed: 04/16/24 14:04 EST\.br\Electronically Co-Signed By: Taitana Dyson PA-C\.br\Date and Time Co-Signed: 04/16/24 13:22 EST\.br\Electronically Co- Signed By: Tatiana Dyson PA-C\.br\Date and Time Co-Signed: 04/16/24 13:24 EST PATIENT EDUCATION Observed: 04/16/2024 11:46 AM Status: C Source: [facility] Patient Education Infectious Disease Prostatitis Prostatitis is [...] these instructions at home: Medicines ??? Take nrmx-rla-vcnhpyw and prescription medicines only as told by [...] is important. Where to find more information ??? National [place] of Diabetes and Digestive and Kidney Diseases: https://www.niddk.nih.gov Contact a health care provider if: ??? Your symptoms get worse. ??? You have a fever. Get help right away if: ??? You have chills. ??? You feel light-headed or feel like you may faint. ??? You cannot urinate. ??? You have blood or blood clots in your urine. Summary ??? Prostatitis is swelling or inflammation of the prostate gland. ??? Treatment for this condition depends on the type of prostatitis. ??? Take xjuf-hpr-bpyljat and prescription medicines only as told by your health care provider. ??? Get help right away of you have chills, feel light-headed, feel like you may faint, cannot urinate, or have blood or blood clots in your urine. This information is not intended to replace advice given to you by your health care provider. Make sure you discuss any questions you have with your health care provider. Document Revised: 03/29/2023 Document Reviewed: 03/29/2023 [employer] Patient Education ? 2023 [employer].Urology Acute Urinary Retention, Male Acute urinary retention [...] causes? This condition may be caused by: ??? Obstruction or narrowing of the tube that drains the bladder (urethra). This may be caused by surgery, problems with nearby organs, or injury to the bladder or urethra. ??? Problems with the nerves in the bladder. ??? Tumors in the area of the pelvis, bladder, or urethra. ??? Certain medicines. ??? Bladder or urinary tract infection. ??? Constipation. What increases the risk? This condition is more likely to develop in older men. As men age, their prostate may become larger and may start to press or squeeze on the bladder or the urethra. Other chronic health conditions can increase the risk of acute urinary retention. These include: ??? Diseases such as multiple sclerosis. ??? Spinal cord injuries. ??? Diabetes. ??? Degenerative cognitive conditions, such as delirium or dementia. ??? Psychological conditions. A man may hold his urine due to trauma or because he does not want to use the bathroom. What are the signs or symptoms? Symptoms of this condition include: ??? Trouble urinating. ??? Pain in the lower abdomen. How is this diagnosed? This condition is diagnosed based on a physical exam and your medical history. You may also have other tests, including: ??? An ultrasound of the bladder or kidneys or both. ??? Blood tests. ??? A urine analysis. ??? Additional tests may be needed, such as a CT scan, MRI, and kidney or bladder function tests. How is this treated? Treatment for this condition may include: ??? Medicines. ??? Placing a thin, sterile tube (catheter) into the bladder to drain urine out of the body. This is called an indwelling urinary catheter. After it is inserted, the catheter is held in place with a small balloon that is filled with sterile water. Urine drains from the catheter into a collection bag outside of the body. ??? Behavioral therapy. ??? Treatment for other conditions. If needed, you may be treated in the hospital for kidney function problems or to manage other complications. Follow these instructions at home: Medicines ??? Take twso-gep-puqftxl and prescription medicines only as told by your health care provider. Avoid certain medicines, such as decongestants, antihistamines, and some prescription medicines. Do not take any medicine unless your health care provider approves. ??? If you were prescribed an antibiotic medicine, take it as told by your health care provider. Do not stop using the antibiotic even if you start to feel better. General instructions ??? Do not use any products that contain nicotine or tobacco. These products include cigarettes, chewing tobacco, and vaping devices, such as e-cigarettes. If you need help quitting, ask your health care provider. ??? Drink enough fluid to keep your urine pale yellow. ??? If you have an indwelling urinary catheter, follow the instructions from your health care provider. ??? Monitor any changes in your symptoms. Tell your health care provider about any changes. ??? If instructed, monitor your blood pressure at home. Report changes as told by your health care provider. ??? Keep all follow-up visits. This is important. Contact a health care provider if: ??? You have uncomfortable bladder contractions that you cannot control (spasms). ??? You leak urine with the spasms. Get help right away if: ??? You have chills or a fever. ??? You have blood in your urine. ??? You have a catheter and the following happens: ? Your catheter stops draining urine. ? Your catheter falls out. Summary ??? Acute urinary retention is a condition in which a person is unable to pass urine or can only pass a little urine. If left untreated, this condition can result in kidney damage or other serious complications. ??? An enlarged prostate may cause this condition. As men age, their prostate gland may become larger and may press or squeeze on the bladder or the urethra. ??? Treatment for this condition may include medicines and placement of an indwelling urinary catheter. ??? Monitor any changes in your symptoms. Tell your health care provider about any changes. This information is not intended to replace advice given to you by your health care provider. Make sure you discuss any questions you have with your health care provider. Document Revised: 02/02/2021 Document Reviewed: 02/02/2021 [employer] Patient Education ? 2023 [employer].Benign Prostatic Hyperplasia Benign prostatic hyperplasia (BPH) is [...] Follow these instructions at home: ??? Take syfu-wai-toyfsls and prescription medicines only as told by [...] pain. ??? Your symptoms do not get better with treatment. ??? You develop side effects from the medicine you are taking. ??? Your urine becomes very dark or has a bad smell. ??? Your lower abdomen becomes distended and you have trouble passing urine. Get help right away if: ??? You have a fever or chills. ??? You suddenly cannot urinate. ??? You feel light-headed or very dizzy, or you faint. ??? There are large amounts of blood or clots in your urine. ??? Your urinary problems become hard to manage. ??? You develop moderate to severe low back or flank pain. The flank is the side of your body between the ribs and the hip. These symptoms may be an emergency. Get help right away. Call 911. ??? Do not wait to see if the symptoms will go away. ??? Do not drive yourself to the hospital. Summary ??? Benign prostatic hyperplasia (BPH) is an enlarged prostate that is caused by the normal aging process. It is not caused by cancer. ??? An enlarged prostate can press on the urethra. This can make it hard to pass urine. ??? This condition is more likely to develop in men older than 50 years. ??? Get help right away if you suddenly cannot urinate. This information is not intended to replace advice given to you by your health care provider. Make sure you discuss any questions you have with your health care provider. Document Revised: 11/30/2021 Document Reviewed: 11/30/2021 [employer] Patient Education ? 2023 [employer]. ALLERGIES DATE TYPE / CODE NAME / CODE REACTION SEVERITY SOURCE 02/13/2023 DRUG INGREDI/855436569(SNO MED CT) CODEINE Unknown [facility] Ambulatory DR/333398333(SNOMED CT) codeine [id number] [facility] Miscellaneous Allergy/448507097(SNO MED CT) No Known Allergies [facility] ENCOUNTERS ADMIT/DISCHARGE ACCOUNT NUMBER ADMITTING ENCOUNTER CLASS LOCATION SOURCE 10/16/2024/10/19/19 [id number] Ricardo Aguero [facility] [id number]: 1 [facility] 09/24/2024/09/25/19 [id number] Ambulatory Building:NOM SSWSIM [facility] 08/26/2024/08/27/19 25 [id number] [place] Exam 7 [facility] 08/18/2024/08/19/19 25 [id number] Ambulatory [place] : Exam 2 [facility] 08/15/2024/08/16/19 25 [id number] Ambulatory [place]:EU [facility] 08/08/2024/08/09/19 25 [id number] John ZAPATA Ambulatory [facility] :FT.URO [facility] 07/17/2024/07/17/19 25 [id number] Ambulatory Building:NOM S [facility] 07/02/2024/07/02/19 25 [id number] Ambulatory Building:NOM [facility] 06/23/2024/06/23/19 25 [id number] Ambulatory [place] : Exam 1 [facility] 05/15/2024/05/15/20 24 [id number] Ambulatory Building:[address] Ambulatory 05/07/2024/05/07/20 24 [id number] Ambulatory Building:NOM S [facility] EP[facility] 04/28/2024/04/28/20 24 [id number] Ambulatory [place] : Exam 2 [facility] 04/25/2024 [id number] SU SAMPSON Ambulatory [facility] :FT LAB [facility] 04/25/2024/04/25/20 24 [id number] SU SAMPSON Ambulatory [facility] :FT LAB [facility] 04/25/2024/04/25/20 24 [id number] Ambulatory [place] : Lab [facility] 04/16/2024/04/16/20 24 [id number] Ambulatory [place] : Exam 2 [facility] 03/26/2024/03/26/20 24 [id number] Ambulatory Building:NOM [facility] 03/05/2024 [id number] [facility] [place]27[facility]02/27/20 24 [id number] Ambulatory Building:NOM [facility] 01/01/2024/01/01/20 24 [id number] Ambulatory Building:NOM [facility] EPIC PAYERS ENCOUNTER GUARANTOR PAYER SUBSCRIBER SOURCE 10/16/[address] [place] [address]Gem: (HP) Primary Insurance:[employer] [facility] PFFSPolicy Number: [id number] Date:2869-89-58[address] [place] [address]XE: Demarcus GrossmanB: [id number] [place] [address]Obv: (HP) [facility] 10/16/2024 Secondary Insurance: for LifePolicy Number: [id number] Date:5140-40-89JK [address] [place] [address]TR: Demarcus GrossmanB: [id number] [place] [address]Yii: (HP) [facility] 10/16/2024 Tertiary Insurance:Self PayPolicy Number: Effective Date:2024-10-16 NOT GIVENUNK [facility] 09/24/2024 DEMARCUS BRAGG: [place] [address]Jkw: (HP) Primary Insurance:HUMANA MEDICARE ADVANTAGEPolicy Number: [id number] Date:2022-05-28 DEMARCUS BRAGG: [id number] [place] [address] [facility] 09/24/2024 Secondary Insurance:TRICAREPolic y Number: [id number] Date:2023-05-28 DEMARCUS GROSSMANB: [id number] [place] [address] [facility] 08/26/2024 DEMARCUS BRAGG: [address] ATel: ~~(4 1 (HP) Primary Insurance:HUMANAPolicy Number: [id number] Date:3824-22-63IE [address] [address]VR: DEMARCUS COOPER [facility] 08/26/2024 Secondary Insurance: FOR LIFE MEDICARE SECONDARYPolicy Number: [id number] Date:6243-95-14RQ [address] [place] [address]YP: [facility] DEMARCUS Garcia ALIZEB: [address] ATel: ~~(4 1 (HP) Primary Insurance:HUMANAPolicy Number: [id number] Date:8316-05-74PP [address] [address]LE: DEMARCUS COOPER [facility] 08/18/2024 Secondary Insurance: FOR LIFE MEDICARE SECONDARYPolicy Number: [id number] Date:0357-31-95AL [address] [address]RD: [facility] 08/15/2024 DEMARCUS Jose ALIZEB: [address] ATel: ~~(4 1 (HP) Primary Insurance:HUMANAPolicy Number: [id number] Date:7228-51-86PR [address] [address]XY: DEMARCUS COOPER [facility] 08/15/2024 Secondary Insurance: FOR LIFE MEDICARE SECONDARYPolicy Number: [id number] Date:2669-25-52NH [address] [address]GO: DEMARCUS COOPER [facility] 08/08/2024 DEMARCUS BRAGG: [id number] ATel: ~~(4 1 (HP) Primary Insurance:HUMANAPolicy Number: [id number] Date:9835-58-54DH [address] [place] [address]UB: DEMARCUS COOPER [facility] 08/08/2024 Secondary Insurance: FOR LIFE MEDICARE SECONDARYPolicy Number: [id number] Date:7330-48-35PY [address] [place] [address]HQ: DEMARCUS COOPER [facility] 07/17/2024 DEMARCUS BRAGG: [id number] [place] [address]Uwc: (HP) Primary Insurance:TRICAREPolic y Number: [id number] Date:2023-03-10 DEMARCUS BRAGG: [id number] [place] [address] [facility] 07/17/2024 Secondary Insurance:HUMANA MEDICARE ADVANTAGEPolicy Number: [id number] Date:2022-05-28 DEMARCUS BRAGG: [id number] [place] [address] [facility] 07/02/2024 DEMARCUS BRAGG: [id number] [place] [address]Nbj: (HP) Primary Insurance:TRICAREPolic y Number: [id number] Date:2023-03-10 DEMARCUS BRAGG: [id number] [place] [address] [facility] 07/02/2024 Secondary Insurance:HUMANA MEDICARE ADVANTAGEPolicy Number: [id number] Date:2022-05-28 DEMARCUS BRAGG: [id number] [place] [address] [facility] 06/23/2024 DEMARCUS BRAGG: [address] ATel: ~~(4 1 (HP) Primary Insurance:HUMANAPolicy Number: [id number] Date:2110-52-96LV [address] [place] [address]TX: DEMARCUS ISAACSGREGORIO [facility] 06/23/2024 Secondary Insurance:[facility] CLAIMPolicy Number: [id number] Date:2022-05-28 DEMARCUS Jose SHITALGREGORIO [facility] 05/15/2024 DEMARCUS BRAGG: [address] [facility] [place] [address]Tlz: (HP) Primary Insurance:TRICAREPolic y Number: [id number] Date:2022-05-28 DEMARCUS BRAGG: [id number] [facility] [place], [place] [address]Eet: () [facility] 05/15/2024 Secondary Insurance:HUMANA MEDICAREPolicy Number: [id number] Date:2022-05-28 DEMARCUS BRAGG: [id number] [facility] [place] [address]Ilz: () [facility] 05/07/2024 DEMARCUS BRAGG: [place] [address]Lnq: (HP) Primary Insurance:TRICAREPolic y Number: [id number] Date:2023-03-10 DEMARCUS BRAGG: [id number] [place] [address] [facility] 05/07/2024 Secondary Insurance:HUMANA MEDICARE ADVANTAGEPolicy Number: [id number] Date:2022-05-28 DEMARCUS BRAGG: [id number] [place] [address] [facility] 04/28/2024 DEMARCUS Garcia YEMI: [address] ATel: ~~(4 1 (HP) Primary Insurance:HUMANAPolicy Number: [id number] Date:2754-05-62KH [address] [address]IY: DEMARCUS Garcia [facility] 04/28/2024 Secondary Insurance:[facility] CLAIMPolicy Number: [id number] Date:2022-05-28 DEMARCUS Garcia [facility] 04/25/2024 DEMARCUS Garcia ALIZEB: [id number] [address] ATel: ~~(4 1 (HP) Primary Insurance:HUMANAPolicy Number: [id number] Date:7856-38-11FV [address] [address]BP: DEMARCUS Garcia [facility] 04/25/2024 Secondary Insurance:[facility] CLAIMPolicy Number: [id number] Date:2024-04-25 DEMARCUS Garcia [facility] 04/25/2024 DEMARCUS Garcia ALIZEB: [id number] [address] ATel: ~~(4 1 (HP) Primary Insurance:HUMANAPolicy Number: [id number] Date:4212-45-45PZ [address] [address]TC: DEMARCUS Garcia [facility] 04/25/2024 Secondary Insurance:[facility] CLAIMPolicy Number: [id number] Date:2022-05-28 DEMARCUS Garcia [facility] 04/16/2024 DEMARCUS Garcia ALIZEB: [id number] [address] ATel: ~~(4 1 (HP) Primary Insurance:HUMANAPolicy Number: [id number] Date:4194-25-30[address] [address] [address]LD: DEMARCUS Jose SHITALGREGORIO [facility] 04/16/2024 Secondary Insurance:[facility] CLAIMPolicy Number: [id number] Date:2022-05-28 DEMARCUS Garcia SHITALGREGORIO [facility] 03/26/2024 DEMARCUS GROSSMANB: [id number] [place] [address]Fyg: (HP) Primary Insurance:TRICAREPolic y Number: [id number] Date:2023-03-10 DEMARCUS GROSSMANB: [id number] [place] [address] [facility] 03/26/2024 Secondary Insurance:HUMANA MEDICARE ADVANTAGEPolicy Number: [id number] Date:2022-05-28 DEMARCUS GROSSMANB: [id number] [place] [address] [facility] 02/27/2024 DEMARCUS GROSSMANB: [place] [address]Ljg: (HP) Primary Insurance:TRICAREPolic y Number: [id number] Date:2023-03-10 DEMARCUS GROSSMANB: [id number] [place] [address] [facility] 02/27/2024 Secondary Insurance:HUMANA MEDICARE ADVANTAGEPolicy Number: [id number] Date:2022-05-28 DEMARCUS BRAGG: [id number] [place] [address] [facility] 2024 DEMARCUS GROSSMANB: [id number] [place] [address]Joq: () [facility] Number: [id number] Date:2023-03-10 DEMARCUS BRAGG: [id number] [place] [address] [facility] 2024 Secondary Insurance:H[employer]AN MEDICARE ADVANTAGEPoly Number: [id number] Date:2022-05-28 DEMARCUS BRAGG: [id number] [place] [address] [facility]
--- OUTSIDE RECORDS SUMMARY | 2024-10-16 21:38 | XMS_ITS ---
Author Name Auto Generated Organization OHIP Care Team Providers Care Recording Studio Setup Worker Name Role Phone RENE CASTRO Attending Unavailable RENE CASTRO Referring Unavailable SERA HOBBS Primary Care Unavailable John ZAPATA Attending Unavailable Yasemin Peralta Attending Unavailable SERA HOBBS Referring Unavailable SU SAMPSON Attending Unavailable SU SAMPSON Attending Unavailable John ZAPATA Admitting Unavailable John ZAPATA Referring Unavailable John ZAPATA Attending Unavailable SU SAMPSON Admitting Unavailable SU SAMPSON Attending Unavailable ADRIÁN, SU Esquivel Attending Unavailable ADRIÁN, SU Esquivel Admitting Unavailable SU SAMPSON Attending Unavailable John ZAPATA Attending Unavailable John ZAPATA Referring Unavailable John ZAPATA Attending Unavailable Sera Hobbs Primary Care Unavailable Sekou, Orquidea Consulting Unavailable Ricardo Aguero Admitting Unavailable Vincenzo Caraballo Attending Unavailable Orquidea Sapp Consulting Unavailable Keila Davis [...] ANJEL, SERA Jimenez Attending Unavailable ANJEL, SERA L Referring Unavailable GURJIT BUSBY Attending Unavailable RISDEBBI GARNETT Attending Unavailable ANJEL, SERA Jimenez Referring Unavailable PETMARYBETH MCGRATH Attending Unavailable RISDEBBI GARNETT Referring Unavailable RISDEBBI GARNETT Attending Unavailable PROBLEMS DATE TYPE CONDITION / CODE ATTENDING STATUS [facility] 10/16/2024 Unknown Acute on chronic systolic (congestive) heart failure / I50.23(ICD-10) Vincenzo Caraballo [facility] 10/16/2024 Unknown Pneumonia, unspecified organism / J18.9(ICD-10) Vincenzo Caraballo [facility] 10/16/2024 Unknown Acute respirator y failure with hypoxia / J96.01(ICD-10) Vincenzo Caraballo [facility] 10/16/2024 Unknown Presence of rigo nary angioplasty implant and graft / Z95.5(ICD-10) Vincenzo Caraballo [facility] 10/16/2024 Unknown 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 / I25.10(ICD-10) Vincenzo Caraballo [facility] 05/15/2024 Admitting Diagnosis Body mass index (BMI) 36.0-36.9, adult / Z68.36(ICD-10) [facility] 02/13/2023 Admitting Diagnosis Personal history of nicotine dependence / Z87.891(ICD-10) [facility] 02/13/2023 Admitting Diagnosis 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 / I25.10(ICD-10) [facility] 02/13/2023 Admitting Diagnosis Essential (primary) hypertension / I10(ICD-10) [facility] 02/13/2023 Admitting Diagnosis Ischemic cardiomyopathy / I25.5(ICD-10) [facility] 02/13/2023 Admitting Diagnosis Mixed hyperlipidemia / E78.2(ICD-10) [facility] 02/13/2023 Admitting Diagnosis Presence of coronary angioplasty implant and graft / Z95.5(ICD-10) [facility] PROCEDURES No Procedure Records Found RESULTS HEMOGRAM CBC WITHOUT DIFF Collected: 10/18/2024 9:07 AM Status: F Source: [facility] TYPE CODE TESTS RESULT OUT OF [...] 6.6-10.1 fL Result Comment: PERFORMED BY : [facility] [place] [address] PATHOLOGIST DIRECTOR CHECK ERASMO SADLER M.D. Performed By: #### BHAKTI KRISHNA , BMP #### [place] [id number] [facility] BASIC METABOLIC PANEL Collected: 10/18/2024 9:07 AM Status: F Source: [facility] TYPE CODE TESTS RESULT OUT OF [...] By: #### BHAKTI KRISHNA , BMP #### [address] MAGNESIUM Collected: 9:07 AM Status: F Source: [facility] TYPE CODE TESTS RESULT OUT OF RANGE REFERENCE UNITS LAB MG Magnesium 2.3 Normal 1.9-2.7 mg/dL Result Comment: PERFORMED BY : [place] [address] PATHOLOGIST DIRECTOR CHECK ERASMO SADLER M.D. Performed By: #### BHAKTI KRISHNA , BMP #### [place] [id number] [facility] TROPONIN I HIGH SENSITIVITY Collected: 10/17/2024 11:57 AM Status: F Source: [facility] TYPE CODE TESTS RESULT OUT OF RANGE REFERENCE UNITS LAB HS TROP Troponin I High Sensitivity 14 Normal 0-20 Result Comment: The Troponin units of report have been changed to meet the Chest Pain Accreditation requirement, element EC5.M1l2. Troponin units are changed from pg/ml to ng/L. Also, the decimal is removed and results are in whole numbers. PERFORMED BY: [place] [address] PATHOLOGIST DIRECTOR CHECK ERASMO SADLER M.D. Performed By: #### HS TROP # ### [address] XR CHEST 2V* Observed: 10/17/2024 9:45 AM Status: COMPLETED Source: [facility] [place] [address] [place] [address] XRay Report Signed Patient: Demarcus Panchal MR#: [id number] 652 : 1955 Acct:[id number] Age/Sex: 69 / M ADM Date: 10/16/24 Loc: Room: [address] [place] [address] Type: ADM IN Attending Dr: Vincenzo Caraballo [...] Trejo M.D. 10/17/2024 9:46 AM Dictation Location: [place] [address] Transcribed By: [facility] 10/17/2446 Dictated By: Miguel Trejo MD 10/17/2445 Signed By: <Electronically signed by Miguel Trejo MD in OV> 10/17/24 09 GLUCOSE POCT GLUCOMETERS Collected: 10/17/2024 9:12 A M Status: F Source: [facility] TYPE CODE TESTS RESULT OUT OF RANGE REFERENCE UNITS LAB GLUPOC Glucose Poc Glucometers 144 mg/dL Result Comment: Random Gluco se Reference Range is dependent on time and content of last meal. Glucose of more than 200 mg/dL in a nonstressed, ambulatory subject supports the diagnosis of Diabetes Mellitus. LAB COMM1 Commemt1 Glu2: Cleaned Meter Result Comment: PERFORMED BY : [facility] [place] [address] PATHOLOGIST DIRECTOR CHECK FIORELLA BRIAN M.D. Performed By: #### GLULS ### # Point of Care testing , COMPLETE BLOOD COUNT AUTO DIFF Collected: 10/17/2024 5:00 AM Status: F Source: [facility] TYPE CODE TESTS RESULT OUT OF RANGE [...] 0.0-0.2 10*3/uL Result Comment: PERFORMED BY : [place] [address] PATHOLOGIST DIRECTOR CHECK FIORELLA BRIAN M.D. Performed By: #### BMP, CBC, MG #### [address] BASIC METABOLIC PANEL Collected: 10/17/2024 5:00 AM Status: F Source: [facility] TYPE CODE TESTS RESULT OUT OF [...] Performed By: #### BMP, CBC, MG #### [address] MAGNESIUM Collected: 5:00 AM Status: F Source: [facility] TYPE CODE TESTS RESULT OUT OF RANGE REFERENCE UNITS LAB MG Magnesium 2.2 Normal 1.9-2.7 mg/dL Result Comment: PERFORMED BY : [facility] [address] [place] [address] PATHOLOGIST DIRECTOR CHECK FIORELLA BRIAN M.D. Performed By: #### BMP, CBC, MG #### [facility] [address] PATIENT EDUCATION Observed: 08/26/2024 8:40 AM Status: F Source: [facility] Patient Education Urology Benign Prostatic Hyperplasia Benign [...] Follow these instructions at home: ??? Take ajht-sat-uaabohl and prescription medicines only as told by [...] Reviewed: 11/30/2021 Elsevier Patient Education ? 2023 Life Metrics UROLOGY OFFICE/CLINIC NOTE Observed: 05/2024 7:44 AM Status: F Source: [facility] Urology Office/Clinic Note Chief Complaint F/u Urolift [...] Information BENNY SHELLEY, John Hauser, URL [address] [place] [address]- Additional Instructions: 6-8 wks with PVR Patient Education Benign Prostatic Hyperplasia I, Dayanara Murrell, personally scribed for Dr. Zapata on 08/26/2024 08:41:13. . Portions of this record may have been created with voice recognition artificial intelligence software, specifically Helium, Total Eclipse and or 7fgame. Substitutions may have occurred due to the inherent limitations of voice recognition and artificial intelligence software. 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 Take vynm-oov-lilhakl and prescription medicines only as told by [...] provider. Document Revised: 11/30/2021 Document Reviewed: 11/30/2021 ElseShenzhen MR Photoelectricity Patient Education ??? 2023 Stion. PATIENT EDUCATION Observed: 08/18/2024 3:05 PM Status: F Source: [facility] Patient Education Urology Benign Prostatic Hyperplasia Benign [...] Follow these instructions at home: ??? Take pkxt-djw-rsqaujq and prescription medicines only as told by [...] Reviewed: 11/30/2021 Elsevier Patient Education ? 2023 Stion. 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 Take cvlb-hhk-zricjwa and prescription medicines only as told by [...] provider. Document Revised: 11/30/2021 Document Reviewed: 11/30/2021 AppLayer Patient Education ??? 2023 AppLayer Inc. AMBULATORY VISIT SUMMARY Observed: 08/15 7:49 AM Status: F Source: [facility] Ambulatory Visit Summary DEMARCUS PANCHAL :1955 Visit Date:08/15/2024 Ambulatory Visit Instructions Your Care Team Attending Physician - John ZAPATA MD Primary Care Physician - Anjel DELACRUZ, Sera Calabrese Referring Physician - John ZAPATA MD This Is Your Medications List acetaminophen-hydrocodone (Florence 325 mg-5 mg oral tablet) acetaminophen-tramadol (Ultracet [...] What How Much When Instructions Unchanged acetaminophen-hydrocodone (Florence 325 mg-5 mg oral tablet) See instructions [...] congestive heart failure 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 Stay on the Flomax for now. Some discharge instructions have been provided. If the bleeding gets severe, or the catheter is clogging from blood clots, you need to go to the ER for irrigation. Will make a one week appt. to remove the catheter. Type Location Start [facility] Urology CALL PAT FT [facility] Urology Surgical Services 08/13/2024 12:00 [...] Date You may receive a survey from [employer] asking you to rate your care experience. Your feedback is important and will help us understand what we do well and how we can improve the quality of care we provide to you, your loved ones and our community. It???s an honor to serve you. Thank you for choosing [facility] PATIENT EDUCATION Observed: 08/08/2024 2:02 PM Status: C Source: [facility] Patient Education Urolift ??? Some men may [...] Observed: 07/26 2:02 PM Status: C Source: [facility] Inpatient Patient Summary [address] [address] Clinical Summary Person Information Name: DEMARCUS PANCHAL Age: 69 Years : 1955 Sex: Male PCP: Sera Hobbs PA-C Marital Status: Race: White Ethnicity: Non- or Language: Kittitian Visit Id: Visit Reason: BPH WITH LUTS Speciality: Acuity: Enc Type: Outpatient Med Service: Surgery Arrival: 08/08/2024 12:42:16 Discharge: Dispo Type: Address: [address] [place] [phone] Provider Notes: Diagnosis: Other obstructive and reflux uropathy Problems Active BPH with obstruction/lower urinary tract symptoms Chronic prostatitis Urinary retention Elevated PSA Chronic systolic congestive heart failure 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 Stay on the Flomax for now. Some discharge instructions have been provided. If the bleeding gets severe, or the catheter is clogging from blood clots, you need to go to the ER for irrigation. Will make a one week appt. to remove the catheter. Type Location Start Finish [facility] Urology CALL PAT FT [facility] Urology Surgical Services 08/13/2024 12:00 PM 08/13/2024 12:30 PM Confirmed Patient Education Information: EU - Urolift Discharge Instructions (Custom) OPERATIVE REPORT Observed: 08/08/2024 1:41 PM Status: C Source: [facility] Operative Report Patient: DEMARCUS PANCHAL Age: 69 years Sex: Male : 1955 Associated Diagnoses: None Author: John ZAPATA MD Procedure Operative Information Details: Date/ Time: 08/08/2024 13:41:00. Pre-Op Dx: Acute urinary retention (QZX06-RQ R33.8, Working, Medical), BPH with obstruction/lower urinary tract symptoms (BSO12-FF N40.1, Working, Medical). Post-Op Dx: Same. Anesthesia [...] procedure (10 mg diazepam, 5/325 mg of Florence), Local Anesthesia (60cc 2% Xylocaine liquid inserted [...] RECORD Observed: 1:30 PM Status: C Source: [facility] Main OR Preoperative Record Holding Area Document Type FTURO Summary Primary Physician: John ZAPATA MD Finalized Date/Time: 08/08/24 13:16:05 Pt. Name: DEMARCUS PANCHAL/Sex: 1955 Male Med Rec #: [id number] Physician: John ZAPATA MD Financial #: [id number] Pt. Type: O Room/Bed: / Admit/Disch: 08/08/24 [...] No Pain Comment: N/A Skin Integrity Intact, [place], Warm, & Dry Vitals - EU Blood Pressure 146/74 Pulse 58 bpm Respirations 18 br/min SPO2 95 % Additional None Specimens Comment N/A Specimens Collected Residual Amount - 0 RN Reviewed Yes Post Void Last Modified By: Bonny Brenner 08/08/24 13:15:24 Finalized By: Bonny Brenner Document Signatures Signed By: Bonny Brenner 08/08/24 13:15 Bonny Brenner 08/08/24 13:16 MAIN OR INTRAOPERATIVE RECORD Observed: 08/08/2024 1:25 PM Status: F Source: [facility] Main OR Intraoperative Recor d IntraOp Document Type FTURO Summary Primary Physician: John ZAPATA MD Finalized Date/Time: 08/08/24 14:01:11 Pt. Name: KVNGDEMARCUSO.B./Sex: 1955 Male Med Rec #: [id number] Physician: John ZAPATA MD Financial #: [id number] Pt. Type: O Room/Bed: / Admit/Disch: 08/08/24 [...] Dian Jackman Role Performed Surgeon - Primary Fitness Attendant - Primary Scrub - Primary Time In [...] LUTS Outcomes Met? Yes Last Modified By: Demertice CAMACHO, Leena Hauser 08/08/24 13:25:27 Post-Care Text: [...] Verified Availability Equipment, Implant, Time Out John ZAPATA MD, Verified (If Medication Participants Demetrice CAMACHO, [...] CARTRIDGE CARTRIDGE CARTRIDGE Serial Number Lot Number [id number] Asw/Asuw Tactical Air Controller NEOTRACT NEOTRACT NEOTRACT Catalog ???# [id number] Size Expiration Date 08/19/25 08/19/25 01/22/26 Usage Data Implant Site PROSTATE PROSTATE PROSTATE Quantity 1 5 2 Temperature Reconstitution Method Outcomes Met? Yes Yes Yes Last Modified By: Demetrice CAMACHO, Leena Hernandez RN, Leena uBrch RN 08/08/24 Celina Hauser 08/08/24 Celina Hauser [...] NOTE Observed: 3:40 PM Status: F Source: [facility] Urology Office/Clinic Note Chief Complaint Cysto HPI [...] Information BENNY SHELLEY, John Hauser, URL [address] [place] [address]- Additional Instructions: schedule Urolift Patient Education Prostatic Urethral Lift Alexander, Dayanara Murrell, personally scribed for Dr. Zapata on 06/23/2024 15:40:59. . Documentation recorded by the scribe, Dayanara Murrell, accurately reflects the services(s) I performed and decisions made by me. Authenticated by Dr. Zapata on 06/23/2024 15:42:23. Portions of this record may have been created with voice recognition artificial intelligence software, specifically Helium, Total Eclipse and or 7fgame. Substitutions may have occurred due to the inherent limitations of voice recognition and artificial intelligence software. 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 ??? Any problems you or family [...] tells you to take them. ??? Taking xplt-jro-nfcztuk medicines, vitamins, herbs, and supplements. Surgery safety [...] provider. Document Revised: 12/09/2021 Document Reviewed: 12/09/2021 AppLayer Patient Education ? 2023 Stion. UROLOGY OFFICE/CLINIC NOTE Observed: 06/2023 12:25 PM Status: F Source: [facility] Urology Office/Clinic Note Chief Complaint 2 week [...] Contact Information ADRIÁN DELACRUZ, SU Esquivel, URL [address] 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 The [place] [employer]: www.cancer.org ??? [place] [employer] Association: www.auanet.org Contact a health care [...] provider. Document Revised: 11/07/2021 Document Reviewed: 11/07/2021 AppLayer Patient Education ? 2023 Stion.Urology Urinary Incontinence Urinary incontinence refers to a [...] stimulation). ? For women, using a medical authorization specialist to prevent urine leaks. This is a [...] after experiencing incontinence. General instructions ??? Take viix-sxo-cwocync and prescription medicines only as told by [...] Where to find more information ??? National [place] of Diabetes and Digestive and Kidney Diseases: www.niddk.nih.gov ??? [place] [employer] Association: www.urologyhealth.org Contact a health care [...] provider. Document Revised: 12/17/2020 Document Reviewed: 12/17/2020 AppLayer Patient Education ? 2023 AppLayer Inc.Acute Urinary Retention, Male Acute urinary retention [...] these instructions at home: Medicines ??? Take vpke-zga-rvqdwqa and prescription medicines only as told by [...] provider. Document Revised: 02/02/2021 Document Reviewed: 02/02/2021 AppLayer Patient Education ? 2023 AppLayer Inc. PSA TOTAL Collected: 4 8:22 AM Status: F Source: [facility] TYPE CODE TESTS RESULT OUT OF RANGE REFERENCE UNITS LAB 2857-1([facility]) PROSTATE SPECIFIC AG:MCNC:PT:S ER/PLAS:QN: 2.3 Normal 0.1-3.5 ng/mL Result Comment: The concentr ation of PSA determined by different manufacturers can vary due to differences in assay methods and reagent specificity. Values obtained from different assay methods cannot be used interchangeably. The methodology used for this result was chemiluminescence using Pharm[employer]'s Access Hybritech PSA reagent. Performed By: #### [id number] #### [facility] [address] [place] [address] UROLOGY OFFICE/CLINIC NOTE Observed: 1:12 PM Status: F Source: [facility] Urology Office/Clinic Note Chief Complaint new patient [...] When Contact Information SU SAMPSON PA-C, URL [address] [place] 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 Take qsdx-kff-pzdvkbt and prescription medicines only as told by [...] Where to find more information ??? National [place] of Diabetes and Digestive and Kidney Diseases: [...] on the type of prostatitis. ??? Take xeyw-vwi-bwtdfgz and prescription medicines only as told by [...] provider. Document Revised: 03/29/2023 Document Reviewed: 03/29/2023 AppLayer Patient Education ? 2023 Stion.Urology Acute Urinary Retention, Male Acute urinary retention [...] these instructions at home: Medicines ??? Take sktf-fek-mkzqrnw and prescription medicines only as told by [...] provider. Document Revised: 02/02/2021 Document Reviewed: 02/02/2021 AppLayer Patient Education ? 2023 Stion.Benign Prostatic Hyperplasia Benign prostatic hyperplasia (BPH) is [...] Follow these instructions at home: ??? Take zwvi-voz-ykclisq and prescription medicines only as told by [...] provider. Document Revised: 11/30/2021 Document Reviewed: 11/30/2021 ElseShenzhen MR Photoelectricity Patient Education ? 2023 Stion. ALLERGIES DATE TYPE / CODE NAME / CODE REACTION SEVERITY SOURCE 02/13/2023 DRUG INGREDI/[id number](SNO MED CT) CODEINE Unknown [facility] Ambulatory DR/[id number](SNOMED CT) codeine [id number] [facility] Miscellaneous Allergy/559690337(SNO MED CT) No Known Allergies [facility] ENCOUNTERS ADMIT/DISCHARGE ACCOUNT NUMBER ADMITTING ENCOUNTER CLASS LOCATION SOURCE 10/16/2024/10/19/19 [id number] Ricardo Aguero [id number]: 1 [place] 09/24/2024/09/25/19 [id number] Ambulatory Building:[facility] 08/26/2024/08/27/19 25 [id number] [place] 7 [facility] 08/18/2024/08/19/19 25 [id number] [place]am 2 [facility] 08/15/2024/08/16/19 25 [id number] [place] [facility] 08/08/2024/08/09/19 25 [id number] John ZAPATA [facility]ulatory [facility] [facility] 07/17/2024/07/17/19 25 [id number] Ambulatory Building:NOM [facility] EPIC 07/02/2024/07/02/19 25 [id number] Ambulatory Building:NOM [facility] EPIC 06/23/2024/06/23/19 25 [id number] Ambulatory [place] : Exam 1 [facility] 05/15/2024/05/15/20 24 [id number] Ambulatory Building:[address] Ambulatory 05/07/2024/05/07/20 24 [id number] Ambulatory Building:NOM S [facility] EPIC 04/28/2024/04/28/20 24 [id number] Ambulatory [place] : Exam 2 [facility] 04/25/2024 [id number] SU SAMPSON Ambulatory [facility]MCBuilding :FT LAB [facility] 04/25/2024/04/25/20 24 [id number] SU SAMPSON Ambulatory [facility]Building :FT LAB [facility] 04/25/2024/04/25/20 24 [id number] Ambulatory [place] : Lab [facility] 04/16/2024/04/16/20 24 [id number] Ambulatory [place] : Exam 2 [facility] 03/26/2024/03/26/20 24 [id number] Ambulatory Building:NOM [facility] EPIC 03/05/2024 [id number] [place]ulatory [place] 02/27/2024/02/27/20 24 [id number] Ambulatory Building:NOM [facility] EPIC 01/01/2024/01/01/20 24 [id number] Ambulatory Building:NOM [facility] EPIC PAYERS ENCOUNTER GUARANTOR PAYER SUBSCRIBER SOURCE 10/16/2024 [address] [place] [address]Sex: (HP) Primary Insurance:Humana [facility] PFFSPolicy Number: [id number] Date:2850-75-76XF [address] [place] [address]YG: Demarcus GrossmanB: [id number] [place] [address]Iuo: (HP) [place] 10/16/2024 Secondary Insurance: for LifePolicy Number: [id number] Date:5262-93-00OZ [address] [place] [address]QT: Demarcus GrossmanB: [id number] [place] [address]Zlv: (HP) [place] 10/16/2024 Tertiary Insurance:Self PayPolicy Number: Effective Date:2024-10-16 NOT GIVENUNK [place] 09/24/2024 DEMARCUS BRAGG: [place] [address]Rnr: (HP) Primary Insurance:HUMANA MEDICARE ADVANTAGEPolicy Number: [id number] Date:2022-05-28 DEMARCUS BRAGG: [id number] [place] [address] [facility] 09/24/2024 Secondary Insurance:TRICAREPolic y Number: [id number] Date:2023-05-28 DEMARCUS GROSSMANB: [id number] [place] [address] [facility] 08/26/2024 DEMARCUS BRAGG: [address] ATel: ~~(4 1 (HP) Primary Insurance:HUMANAPolicy Number: [id number] Date:0215-87-56SK [address] [address]HD: DEMARCUS COOPER [facility] 08/26/2024 Secondary Insurance: FOR LIFE MEDICARE SECONDARYPolicy Number: [id number] Date:1269-63-51KI [address] [place] [address]CX: [facility]/18/[facility] DEMARCUS Garcia ALIZEB: [address] ATel: ~~(4 1 (HP) Primary Insurance:HUMANAPolicy Number: [id number] Date:2035-02-99RB [address] [address]NY: DEMARCUS COOPER [facility] 08/18/2024 Secondary Insurance: FOR LIFE MEDICARE SECONDARYPolicy Number: [id number] Date:2364-88-26RR [address] [address]PY: [facility] 08/15/2024 DEMACRUS Jose ALIZEB: [address] ATel: ~~(4 1 (HP) Primary Insurance:HUMANAPolicy Number: [id number] Date:4214-37-49GT [address] [address]VN: DEMARCUS COOPER [facility] 08/15/2024 Secondary Insurance: FOR LIFE MEDICARE SECONDARYPolicy Number: [id number] Date:6595-07-11SY [address] [address]KF: DEMARCUS COOPER [facility] 08/08/2024 DEMARCUS BRAGG: [id number] [address] ATel: ~~(4 1 (HP) Primary Insurance:HUMANAPolicy Number: [id number] Date:5917-80-28NY [address] [place] [address]DS: DEMARCUS COOPER [facility] 08/08/2024 Secondary Insurance: FOR LIFE MEDICARE SECONDARYPolicy Number: [id number] Date:1311-87-87WX [address] [place] [address]CE: DEMARCUS COOPER [facility] 07/17/2024 DEMARCUS BRAGG: [id number] [place] [address]Ehg: (HP) Primary Insurance:TRICAREPolic y Number: [id number] Date:2023-03-10 DEMARCUS BRAGG: [id number] [place] [address] [facility] 07/17/2024 Secondary Insurance:HUMANA MEDICARE ADVANTAGEPolicy Number: [id number] Date:2022-05-28 DEMARCUS BRAGG: [id number] [place] [address] [facility] 07/02/2024 DEMARCUS BRAGG: [id number] [place] [address]Lzz: (HP) Primary Insurance:TRICAREPolic y Number: [id number] Date:2023-03-10 DEMARCUS BRAGG: [id number] [place] [address] [facility] 07/02/2024 Secondary Insurance:HUMANA MEDICARE ADVANTAGEPolicy Number: [id number] Date:2022-05-28 DEMARCUS BRAGG: [id number] [place] [address] [facility] 06/23/2024 DEMARCUS BRAGG: [address] ATel: ~~(4 1 (HP) Primary Insurance:HUMANAPolicy Number: [id number] Date:9503-26-06NX [address] [place] [address]RI: DEMARCUS ISAACSGREGORIO [facility] 06/23/2024 [facility] CLAIMPolicy Number: [id number] Date:2022-05-28 DEMARCUS Jose SHITALGREGORIO [facility] 05/15/2024 DEMARCUS BRAGG: [address] [facility] [address]Uaa: (HP) Primary Insurance:TRICAREPolic y Number: [id number] Date:2022-05-28 DEMARCUS BRAGG: [id number] [facility] [address]Oat: () [facility] 05/15/2024 Secondary Insurance:HUMANA MEDICAREPolicy Number: [id number] Date:2022-05-28 DEMARCUS BRAGG: [id number] [place] [address]Nvd: () [facility] 05/07/2024 DEMARCUS BRAGG: [place] [address]Nhl: (HP) Primary Insurance:TRICAREPolic y Number: [id number] Date:2023-03-10 DEMARCUS BRAGG: [id number] [place] [address] [facility] EPIC 05/07/2024 Secondary Insurance:HUMANA MEDICARE ADVANTAGEPolicy Number: [id number] Date:2022-05-28 DEMARCUS BRAGG: [id number] [place] [address] [facility] 04/28/2024 DEMARCUS Garcia YEMI: [address] ATel: ~~(4 1 (HP) Primary Insurance:HUMANAPolicy Number: [id number] Date:8186-85-49RD [address] [address]RE: DEMARCUS Garcia [facility] 04/28/2024 Secondary [facility] CLAIMPolicy Number: [id number] Date:2022-05-28 DEMARCUS Garcia [facility] 04/25/2024 DEMARCUS Garcia ALIZEB: [id number] [address] ATel: ~~(4 1 (HP) Primary Insurance:HUMANAPolicy Number: [id number] Date:3459-14-32NT [address] [address]WG: DEMARCUS Garcia [facility] 04/25/2024 Secondary Insurance:[facility] CLAIMPolicy Number: [id number] Date:2024-04-25 DEMARCUS Garcia [facility] 04/25/2024 DEMARCUS Garcia ALIZEB: [id number] [address] ATel: ~~(4 1 (HP) Primary Insurance:HUMANAPolicy Number: [id number] Date:7455-51-88YV [address] [address]IH: EDMARCUS Garcia [facility] 04/25/2024 Secondary Insurance:[facility] CLAIMPolicy Number: [id number] Date:2022-05-28 DEMARCUS Garcia [facility] 04/16/2024 DEMARCUS Garcia ALIZEB: [id number] [address] ATel: ~~(4 1 (HP) Primary Insurance:HUMANAPolicy Number: [id number] Date:4070-55-07UR [address] [address]SJFRUXWCB [place] [address]DT: DEMARCUS Jose SHITALGREGORIO [facility] 04/16/2024 Secondary Insurance:[facility] CLAIMPolicy Number: [id number] Date:2022-05-28 DEMARCUS Garcia SHITALGREGORIO [facility] 03/26/2024 DEMARCUS GROSSMANB: [id number] [place] [address]Lek: (HP) Primary Insurance:TRICAREPolic y Number: [id number] Date:2023-03-10 DEMARCUS GROSSMANB: [id number] [place] [address] [facility] EPIC 03/26/2024 Secondary Insurance:HUMANA MEDICARE ADVANTAGEPolicy Number: [id number] Date:2022-05-28 DEMARCUS GROSSMANB: [id number] [place] [address] [facility] EPIC 02/27/2024 DEMARCUS GROSSMANB: [place] [address]Izl: (HP) Primary Insurance:TRICAREPolic y Number: [id number] Date:2023-03-10 DEMARCUS GROSSMANB: [id number] [place] [address] [facility] EPIC 02/27/2024 Secondary Insurance:HUMANA MEDICARE ADVANTAGEPolicy Number: [id number] Date:2022-05-28 DEMARCUS BRAGG: [id number] [place] [address] [facility] EPIC 2024 DEMARCUS GROSSMANB: [id number] [place] [address]Izo: () [facility] Number: [id number] Date:2023-03-10 DEMARCUS BRAGG: [id number] [place] [address] [facility] 2024 Secondary Insurance:HUMAN MEDICARE ADVANTAGEPoly Number: [id number] Date:2022-05-28 DEMARCUS BRAGG: [id number] [place] [address] [facility]
--- OUTSIDE RECORDS SUMMARY | 2024-10-16 21:38 | XMS_ITS ---
Author Name Auto Generated Organization OHIP Care Team Providers Care Pharmacy Order Entry Technician Name Role Phone BENJY ALAS Attending Unavailable DEBBI BA Attending Unavailable SERA HOBBS Referring Unavailable SERA HOBBS Attending Unavailable SERA HOBBS Referring Unavailable GURJIT BUSBY Attending Unavailable DEBBI BA Attending Unavailable SERA HOBBS Referring Unavailable MARYBETH TURNER Attending Unavailable DEBBI BA Referring Unavailable DEBBI BA Attending Unavailable Orquidea Sapp Consulting Unavailable Ricardo Aguero Admitting Unavailable Vincenzo Caraballo Attending Unavailable Sera Hobbs Primary Care Unavailable Orquidea Sapp Consulting Unavailable Keila Davis Consulting Unavailable Acstro, Aaron Consulting Unavailable Tank Daley Consulting Unavail able Charito Rodriguez Consulting Unavailable Kannan Mendez Consulting Unavailab Penelope Bellamy Consulting Unavailable Katia Mckeon Consulting Unavailable Katie Dalton Consulting Unavailab Mirian Balderas Consulting Unavailable Joanne Edouard Consulting Unavailable CASTRO, AARON M Attending Unavailable CASTROAARON M Referring Unavailable SERA HOBBS Primary Care Unavailable John ZAPATA Referring Unavailable John ZAPATA Attending Unavailable John ZAPATA Attending Unavailable SU SAMPSON Attending Unavailable ADRIÁN, SU Esquivel Attending Unavailable John ZAPATA Admitting Unavailable John ZAPATA Referring Unavailable John ZAPATA Attending Unavailable SU SAMPSON Admitting Unavailable SU SAMPSON Attending Unavailable SU SAMPSON Attending Unavailable SU SAMPSON Admitting Unavailable SERA HOBBS Referring Unavailable SU SAMPSON Attending Unavailable OrYasemin esqueda Attending Unavailable John ZAPATA Attending Unavailable PROBLEMS DATE TYPE CONDITION / CODE ATTENDING STATUS [facility] 10/16/2024 Unknown Acute on chronic systolic (congestive) heart failure / I50.23(ICD-10) Vincenzo Caraballo [facility] 10/16/2024 Unknown Pneumonia, unspecified organism / J18.9(ICD-10) Vincenzo Caraballo [facility] 10/16/2024 Unknown Acute respirator y failure with hypoxia / J96.01(ICD-10) Vincenzo Caraballo [facility] 10/16/2024 Unknown Presence of rigo nary angioplasty implant and graft / Z95.5(ICD-10) Vincenzo Caraballo [facility] 10/16/2024 Unknown 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 / I25.10(ICD-10) Vincenzo Caraballo [facility] 05/15/2024 Admitting Diagnosis Body mass index (BMI) 36.0-36.9, adult / Z68.36(ICD-10) [facility] 02/13/2023 Admitting Diagnosis Personal history of nicotine dependence / Z87.891(ICD-10) [facility] 02/13/2023 Admitting Diagnosis 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 / I25.10(ICD-10) [facility] 02/13/2023 Admitting Diagnosis Essential (primary) hypertension / I10(ICD-10) [facility] 02/13/2023 Admitting Diagnosis Ischemic cardiomyopathy / I25.5(ICD-10) [facility] 02/13/2023 Admitting Diagnosis Mixed hyperlipidemia / E78.2(ICD-10) [facility] 02/13/2023 Admitting Diagnosis Presence of coronary angioplasty implant and graft / Z95.5(ICD-10) [facility] PROCEDURES No Procedure Records Found RESULTS HEMOGRAM CBC WITHOUT DIFF Collected: 10/18/2024 9:07 AM Status: F Source: [facility] TYPE CODE TESTS RESULT OUT [...] Result Comment: PERFORMED BY : [facility] [place] [address] PATHOLOGIST AUTOMOTIVE WELDER ERASMO SADLER M.D. Performed By: #### BHAKTI KRISHNA , BMP #### [place] [id number] [facility] BASIC METABOLIC PANEL Collected: 10/18/2024 9:07 AM Status: F Source: [facility] TYPE CODE TESTS RESULT OUT [...] By: #### BHAKTI KRISHNA , BMP #### [address] MAGNESIUM Collected: 9:07 AM Status: F Source: [facility] TYPE CODE TESTS RESULT OUT OF RANGE REFERENCE UNITS LAB MG Magnesium 2.3 Normal 1.9-2.7 mg/dL Result Comment: PERFORMED BY : [place] [address] PATHOLOGIST AUTOMOTIVE WELDER ERASMO SADLER M.D. Performed By: #### BHAKTI KRISHNA , BMP #### [place] [id number] [facility] TROPONIN I HIGH SENSITIVITY Collected: 10/17/2024 11:57 AM Status: F Source: [facility] TYPE CODE TESTS RESULT OUT OF RANGE REFERENCE UNITS LAB HS TROP Troponin I High Sensitivity 14 Normal 0-20 Result Comment: The Troponin units of report have been changed to meet the Chest Pain Accreditation requirement, element EC5.M1l2. Troponin units are changed from pg/ml to ng/L. Also, the decimal is removed and results are in whole numbers. PERFORMED BY: [place] [address] PATHOLOGIST AUTOMOTIVE WELDER ERASMO SADLER M.D. Performed By: #### HS TROP # ### [address] XR CHEST 2V* Observed: 10/17/2024 9:45 AM Status: COMPLETED Source: [facility] Main [place] [address] [place] [address] XRay Report Signed Patient: Kwadwo Panchal MR#: [id number] 652 : 1955 Acct:[id number] Age/Sex: 69 / M ADM Date: 10/16/24 Loc: Room: [address] [place] [address] Type: ADM IN Attending Dr: Vincenzo Caraballo [...] Trejo M.D. 10/17/2024 9:46 AM Dictation Location: [place] [address] Transcribed By: [facility] 10/17/2446 Dictated By: Miguel Trejo MD 10/17/2445 Signed By: <Electronically signed by Miguel Trejo MD in OV> 10/17/24 09 GLUCOSE POCT GLUCOMETERS Collected: 10/17/2024 9:12 A M Status: F Source: [facility] TYPE CODE TESTS RESULT OUT [...] Result Comment: PERFORMED BY : [facility] [place] [address] PATHOLOGIST AUTOMOTIVE WELDER FIORELLA BRIAN M.D. Performed By: #### GLULS ### # Point of Care testing , COMPLETE BLOOD COUNT AUTO DIFF Collected: 10/17/2024 5:00 AM Status: F Source: [facility] TYPE CODE TESTS RESULT OUT OF [...] 0.0-0.2 10*3/uL Result Comment: PERFORMED BY : [place] [address] PATHOLOGIST AUTOMOTIVE WELDER FIORELLA BRIAN M.D. Performed By: #### BMP, CBC, MG #### [address] BASIC METABOLIC PANEL Collected: 10/17/2024 5:00 AM Status: F Source: [facility] TYPE CODE TESTS RESULT OUT [...] Performed By: #### BMP, CBC, MG #### [address] MAGNESIUM Collected: 5:00 AM Status: F Source: [facility] TYPE CODE TESTS RESULT OUT OF RANGE REFERENCE UNITS LAB MG Magnesium 2.2 Normal 1.9-2.7 mg/dL Result Comment: PERFORMED BY : [facility] [address] [place] [address] PATHOLOGIST AUTOMOTIVE WELDER FIORELLA BRIAN M.D. Performed By: #### BMP, CBC, MG #### [facility] [address] PATIENT EDUCATION Observed: 08/26/2024 8:40 AM Status: F Source: [facility] Patient Education Urology Benign Prostatic Hyperplasia Benign [...] Follow these instructions at home: ??? Take dlao-mvl-opzakrv and prescription medicines only as told by [...] Reviewed: 11/30/2021 Elsevier Patient Education ? 2023 [employer] UROLOGY OFFICE/CLINIC NOTE Observed: 05/2024 7:44 AM Status: F Source: [facility] Urology Office/Clinic Note Chief Complaint F/u Urolift [...] John Hauser, URL [address] [place] [address]- Additional Instructions: 6-8 wks with PVR Patient Education Benign Prostatic Hyperplasia I, Dayanara Murrell, personally scribed for Dr. Zapata on 08/26/2024 08:41:13. . Portions of this record may have been created with voice recognition artificial intelligence software, specifically Preo, Stereomood and or SellABand. Substitutions may have occurred due to the inherent limitations of voice recognition and artificial intelligence software. 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 Take emlw-dng-gynqeur and prescription medicines only as told by [...] provider. Document Revised: 11/30/2021 Document Reviewed: 11/30/2021 [employer] Medical Patient Education ??? 2023 [employer] PATIENT EDUCATION Observed: 08/18/2024 3:05 PM Status: F Source: [facility] Patient Education Urology Benign Prostatic Hyperplasia Benign [...] Follow these instructions at home: ??? Take qhbq-xcl-wozdoui and prescription medicines only as told by [...] Reviewed: 11/30/2021 Elsevier Patient Education ? 2023 [employer] UROLOGY OFFICE/CLINIC NOTE Observed: 2:09 PM Status: F Source: [facility] Urology Office/Clinic Note HPI Staff 69 year [...] distress, well nourished, well developed male. 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 Take wbbi-ara-ocgumtp and prescription medicines only as told by [...] provider. Document Revised: 11/30/2021 Document Reviewed: 11/30/2021 lettrs Patient Education ??? 2023 [employer] AMBULATORY VISIT SUMMARY Observed: 08/15 7:49 AM Status: F Source: [facility] Ambulatory Visit Summary KWADWO PANCHAL :1955 Visit Date:08/15/2024 Ambulatory Visit Instructions Your Care Team Attending Physician - John ZAPATA MD Primary Care Physician - Anjel DELACRUZ, Sera Calabrese Referring Physician - John ZAPATA MD This Is Your Medications List acetaminophen-hydrocodone ([place] 325 mg-5 mg oral tablet) acetaminophen-tramadol (Ultracet [...] What How Much When Instructions Unchanged acetaminophen-hydrocodone ([place] 325 mg-5 mg oral tablet) See instructions [...] congestive heart failure 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 Elevated PSA GERD [...] Observed: 08/08/2024 2:02 PM Status: C Source: [facility] Outpatient Surgery Discharge Instruction [address] [address] Patient Discharge Instructions PERSON INFORMATION Name: KWADWO PANCHAL Date of : 1955 Current Date: 08/08/2024 14:02:09 PHYSICIANS Admitting Physician: John ZAPATA MD Comment: Discharge Diagnosis: Other obstructive and reflux uropathy KWADWO PANCHAL has been given the following list of follow-up instructions, prescriptions, and patient education materials: IF UNABLE TO CONTACT YOUR PHYSICIAN AND YOU FEEL IT IS AN EMERGENCY, GO TO THE NEAREST EMERGENCY ROOM OR CALL 911 Follow up: With: Address: When: John ZAPATA [address] [place] [address], [address], [place] [id number] Business (1) Comments: Push the fluids to [...] [facility] Urology CALL PAT FT [facility] Surgical Services 08/13/2024 12:00 PM 08/13/2024 [...] Date You may receive a survey from [employer] asking you to rate your care experience. Your feedback is important and will help us understand what we do well and how we can improve the quality of care we provide to you, your loved ones and our community. It???s an honor to serve you. Thank you for choosing [facility] PATIENT EDUCATION Observed: 08/08/2024 2:02 PM Status: C Source: [facility] Patient Education Urolift ??? Some men may [...] Observed: 07/26 2:02 PM Status: C Source: [facility] Inpatient Patient Summary [address] [address] Clinical Summary Person Information Name: KWADWO PANCHAL Age: 69 Years : 1955 Sex: Male PCP: Sera Hobbs PA-C Marital Status: Race: White Ethnicity: Non- or Language: Luxembourger Visit Id: Visit Reason: BPH WITH LUTS Speciality: Acuity: Enc Type: Outpatient Med Service: Surgery Arrival: 08/08/2024 12:42:16 Discharge: Dispo Type: Address: [address] [place] [phone] Provider Notes: Diagnosis: Other obstructive and reflux uropathy Problems Active BPH with obstruction/lower urinary tract symptoms Chronic prostatitis Urinary retention Elevated PSA Chronic systolic congestive heart failure 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 Stay on the Flomax for now. Some discharge instructions have been provided. If the bleeding gets severe, or the catheter is clogging from blood clots, you need to go to the ER for irrigation. Will make a one week appt. to remove the catheter. Type Location Start Finish [facility] Urology CALL PAT FT [facility] Surgical Services 08/13/2024 12:00 PM 08/13/2024 12:30 PM Confirmed Patient Education Information: EU - Urolift Discharge Instructions (Custom) OPERATIVE REPORT Observed: 08/08/2024 1:41 PM Status: C Source: [facility] Operative Report Patient: KWADWO PANCHAL Age: 69 years Sex: Male : 1955 Associated Diagnoses: None Author: John ZAPATA MD Procedure Operative Information Details: Date/ Time: 08/08/2024 13:41:00. Pre-Op Dx: Acute urinary retention (FGU23-QM R33.8, Working, Medical), BPH with obstruction/lower urinary tract symptoms (XTB80-NS N40.1, Working, Medical). Post-Op Dx: Same. Anesthesia [...] procedure (10 mg diazepam, 5/325 mg of [place]), Local Anesthesia (60cc 2% Xylocaine liquid inserted [...] RECORD Observed: 1:30 PM Status: C Source: [facility] Main OR Preoperative Record Holding Area Document Type FTURO Summary Primary Physician: John ZAPATA MD Finalized Date/Time: 08/08/24 13:16:05 Pt. Name: KWADWO PANCHAL/Sex: 1955 Male Med Rec #: [id number] Physician: John ZAPAAT MD Financial #: [id number] Pt. Type: O Room/Bed: / Admit/Disch: 08/08/24 [...] No Pain Comment: N/A Skin Integrity Intact, [place], Warm, & Dry Vitals - EU Blood [...] Observed: 08/08/2024 1:25 PM Status: F Source: [facility] Main OR Intraoperative Recor d IntraOp Document Type FTURO Summary Primary Physician: John ZAPATA MD Finalized Date/Time: 08/08/24 14:01:11 Pt. Name: KVNGKWADWOO.B./Sex: 1955 Male Med Rec #: [id number] Physician: John ZAPATA MD Financial #: [id number] Pt. Type: O Room/Bed: / Admit/Disch: 08/08/24 [...] Dian Jackman Role Performed Surgeon - Primary Cabbage Salter - Primary Scrub - Primary Time In [...] CARTRIDGE CARTRIDGE CARTRIDGE Serial Number Lot Number [id number] [employer] NEOTRACT NEOTRACT NEOTRACT Catalog ???# [id number] [id number] Size Expiration Date 08/19/25 08/19/25 01/22/26 Usage [...] 13:43:47 Case Comments <None> Finalized By: Leena Hernandze RN Document Signatures Signed By: Leena Hernandez RN 08/08/24 14:01 UROLOGY OFFICE/CLINIC NOTE Observed: 3:40 PM Status: F Source: [facility] Urology Office/Clinic Note Chief Complaint Cysto HPI [...] Information BENNY SHELLEY, John Hauser, URL [address] [place] [address]- Additional Instructions: schedule Urolift Patient Education Prostatic Urethral Lift Alexander, Dayanara Murrell, personally scribed for Dr. Zapata on 06/23/2024 15:40:59. . Documentation recorded by the scribe, Dayanara Murrell, accurately reflects the services(s) I performed and decisions made by me. Authenticated by Dr. Zapata on 06/23/2024 15:42:23. Portions of this record may have been created with voice recognition artificial intelligence software, specifically Preo, Stereomood and or [employer]. Substitutions may have occurred due to the inherent limitations of voice recognition and artificial intelligence software. 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 ??? Any problems you or family [...] tells you to take them. ??? Taking zfkz-hql-cddwwgx medicines, vitamins, herbs, and supplements. Surgery safety [...] provider. Document Revised: 12/09/2021 Document Reviewed: 12/09/2021 lettrs Patient Education ? 2023 [employer] UROLOGY OFFICE/CLINIC NOTE Observed: 06/2023 12:25 PM Status: F Source: [facility] Urology Office/Clinic Note Chief Complaint 2 week [...] Contact Information ADRIÁN DELACRUZ, SU Esquivel, URL [address] 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 The [place] [employer]: www.cancer.org ??? [place] [employer] Association: www.auanet.org Contact a health care [...] provider. Document Revised: 11/07/2021 Document Reviewed: 11/07/2021 lettrs Patient Education ? 2023 [employer]Urology Urinary Incontinence Urinary incontinence refers to a [...] stimulation). ? For women, using a medical accounting clerk to prevent urine leaks. This is a [...] after experiencing incontinence. General instructions ??? Take wekb-idl-ivmlafc and prescription medicines only as told by [...] Where to find more information ??? National [place] of Diabetes and Digestive and Kidney Diseases: www.niddk.nih.gov ??? [place] [employer] Association: www.urologyhealth.org Contact a health care [...] provider. Document Revised: 12/17/2020 Document Reviewed: 12/17/2020 lettrs Patient Education ? 2023 [employer].Acute Urinary Retention, Male Acute urinary retention [...] these instructions at home: Medicines ??? Take dsrf-ffg-efntlni and prescription medicines only as told by [...] provider. Document Revised: 02/02/2021 Document Reviewed: 02/02/2021 lettrs Patient Education ? 2023 [employer] PSA TOTAL Collected: 4 8:22 AM Status: F Source: [facility] TYPE CODE TESTS RESULT OUT OF RANGE REFERENCE UNITS LAB 2857-1([facility]) PROSTATE SPECIFIC AG:MCNC:PT:S ER/PLAS:QN: 2.3 Normal 0.1-3.5 ng/mL Result Comment: The concentr ation of PSA determined by different manufacturers can vary due to differences in assay methods and reagent specificity. Values obtained from different assay methods cannot be used interchangeably. The methodology used for this result was chemiluminescence using [employer]'s Access Hybritech PSA reagent. Performed By: #### [id number] #### [facility] [address] [place] [address] UROLOGY OFFICE/CLINIC NOTE Observed: 1:12 PM Status: F Source: [facility] Urology Office/Clinic Note Chief Complaint new patient [...] When Contact Information SU SAMPSON PA-C, URL [address] 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 Take qhly-kja-kmtwgtr and prescription medicines only as told by [...] Where to find more information ??? National [place] of Diabetes and Digestive and Kidney Diseases: [...] on the type of prostatitis. ??? Take wwsd-uji-ehtrdyx and prescription medicines only as told by [...] provider. Document Revised: 03/29/2023 Document Reviewed: 03/29/2023 lettrs Patient Education ? 2023 [employer]Urology Acute Urinary Retention, Male Acute urinary retention [...] these instructions at home: Medicines ??? Take gzbn-jrk-lmhmrks and prescription medicines only as told by [...] provider. Document Revised: 02/02/2021 Document Reviewed: 02/02/2021 lettrs Patient Education ? 2023 [employer]Benign Prostatic Hyperplasia Benign prostatic hyperplasia (BPH) is [...] Follow these instructions at home: ??? Take dxhj-wmn-xnbragy and prescription medicines only as told by [...] provider. Document Revised: 11/30/2021 Document Reviewed: 11/30/2021 [employer] Medical Patient Education ? 2023 [employer] ALLERGIES DATE TYPE / CODE NAME / CODE REACTION SEVERITY SOURCE 02/13/2023 DRUG INGREDI/[id number](SNO MED CT) CODEINE Unknown [facility] Ambulatory DR/[id number](SNOMED CT) codeine [id number] [facility] Miscellaneous Allergy/800345335(SNO MED CT) No Known Allergies [facility] ENCOUNTERS ADMIT/DISCHARGE ACCOUNT NUMBER ADMITTING ENCOUNTER CLASS LOCATION SOURCE 10/16/2024/10/19/19 [id number] Ricardo Aguero [id number][facility] 1 [facility] 09/24/2024/09/25/19 [id number] Ambulatory Building:NOM SSWSIM [facility] 08/26/2024/08/27/19 25 [id number] [place] 7 [facility] 08/18/2024/08/19/19 25 [id number] [place] 2 [facility] 08/15/2024/08/16/19 25 [id number] [place] [facility] 08/08/2024/08/09/19 25 [id number] John ZAPATA [facility] 07/17/2024/07/17/19 25 [id number] Ambulatory Building:NOM S [facility] EPIC 07/02/2024/07/02/19 25 [id number] Ambulatory Building:NOM [facility] EPIC 06/23/2024/06/23/19 25 [id number] Ambulatory [place] : Exam 1 [facility] 05/15/2024/05/15/20 24 [id number] Ambulatory Building:[address] Ambulatory 05/07/2024/05/07/20 24 [id number] Ambulatory Building:NOM S [facility] EPIC 04/28/2024/04/28/20 24 [id number] Ambulatory [place] : Exam 2 [facility] 04/25/2024 [id number] [place] Ambulatory [facility]MCBuilding :FT LAB [facility] 04/25/2024/04/25/20 24 [id number] [place] Ambulatory [facility]MCBuilding :FT LAB [facility] 04/25/2024/04/25/20 24 [id number] Ambulatory [place] : Lab [facility] 04/16/2024/04/16/20 24 [id number] Ambulatory [place] : Exam 2 [facility] 03/26/2024/03/26/20 24 [id number] Ambulatory Building:NOM [facility] EPIC 03/05/2024 [id number] [place] [place]/02/27/20 24 [id number] Ambulatory Building:NOM [facility] EPIC 01/01/2024/01/01/20 24 [id number] Ambulatory Building:NOM [facility] EPIC PAYERS ENCOUNTER GUARANTOR PAYER SUBSCRIBER SOURCE 10/16/[address] [place] [address]Syu: (HP) Primary Insurance:Humana [facility] PFFSPolicy Number: [id number] Date:6315-46-08TW [address] [place] [address]CF: Kwadwo GrossmanB: [id number] [place] [address]Vji: (HP) [facility] 10/16/2024 Secondary Insurance: for LifePolicy Number: [id number] Date:6922-72-28AU [address] [place] [address]VD: Kwadwo GrossmanB: [id number] [place] [address]Zib: (HP) [facility] 10/16/2024 Tertiary Insurance:Self PayPolicy Number: Effective Date:2024-10-16 NOT GIVENUNK [facility] 09/24/2024 KWADWO BRAGG: [place] [address]Xne: (HP) Primary Insurance:HUMANA MEDICARE ADVANTAGEPolicy Number: [id number] Date:2022-05-28 KWADWO BRAGG: [id number] [place] [address] [facility] 09/24/2024 Secondary Insurance:TRICAREPolic y Number: [id number] Date:2023-05-28 KWADWO GROSSMANB: [id number] [place] [address] [facility] 08/26/2024 KWADWO BRAGG: [address] ATel: ~~(4 1 (HP) Primary Insurance:HUMANAPolicy Number: [id number] Date:7811-04-72VN [address] [address]TC: KWADWO COOPER [facility] 08/26/2024 Secondary Insurance: FOR LIFE MEDICARE SECONDARYPolicy Number: [id number] Date:1974-17-28MI [address] [place] [address]CW: [facility]/18/2024 KWADWO Garcia ALIZEB: [address] ATel: ~~(4 1 (HP) Primary Insurance:HUMANAPolicy Number: [id number] Date:7875-29-29TH [address] [address]PI: KWADWO COOPER [facility] 08/18/2024 Secondary Insurance: FOR LIFE MEDICARE SECONDARYPolicy Number: [id number] Date:5809-87-60JJ [address] [address]YP: [facility] 08/15/2024 KWADWO Jose ALIZEB: [address] ATel: ~~(4 1 (HP) Primary Insurance:HUMANAPolicy Number: [id number] Date:5325-11-15DG [address] [address]MY: KWADWO COOPER [facility] 08/15/2024 Secondary Insurance: FOR LIFE MEDICARE SECONDARYPolicy Number: [id number] Date:5828-07-24GQ [address] [address]BY: KWADWO COOPER [facility] 08/08/2024 KWADWO BRAGG: [id number] [address] ATel: ~~(4 1 (HP) Primary Insurance:HUMANAPolicy Number: [id number] Date:2473-17-46LP [address] [place] [address]PX: KWADWO COOPER [facility] 08/08/2024 Secondary Insurance: FOR LIFE MEDICARE SECONDARYPolicy Number: [id number] Date:1843-71-57VG [address] [place] [address]US: KWADWO COOPER [facility] 07/17/2024 KWADWO BRAGG: [id number] [place] [address]Fwt: (HP) Primary Insurance:TRICAREPolic y Number: [id number] Date:2023-03-10 KWADWO BRAGG: [id number] [place] [address] [facility] 07/17/2024 Secondary Insurance:HUMANA MEDICARE ADVANTAGEPolicy Number: [id number] Date:2022-05-28 KWADWO BRAGG: [id number] [place] [address] [facility] 07/02/2024 KWADWO BRAGG: [id number] [place] [address]Txx: (HP) Primary Insurance:TRICAREPolic y Number: [id number] Date:2023-03-10 KWADWO BRAGG: [id number] [place] [address] [facility] 07/02/2024 Secondary Insurance:HUMANA MEDICARE ADVANTAGEPolicy Number: [id number] Date:2022-05-28 KWADWO BRAGG: [id number] [place] [address] [facility] EPIC 06/23/2024 KWADWO BRAGG: [address] ATel: ~~(4 1 (HP) Primary Insurance:HUMANAPolicy Number: [id number] Date:5482-09-85SN [address] [place] [address]RC: KWADWO ISAACSGREGORIO [facility] 06/23/2024 Secondary Insurance:[facility] CLAIMPolicy Number: [id number] Date:2022-05-28 KWADWO Jose SHITALGREGORIO [facility] 05/15/2024 KWADWO BRAGG: [address] [facility] [address]Hkq: (HP) Primary Insurance:TRICAREPolic y Number: [id number] Date:2022-05-28 KWADWO BRAGG: [id number] [facility], [place] [address]Mzb: () [facility] 05/15/2024 Secondary Insurance:HUMANA MEDICAREPolicy Number: [id number] Date:2022-05-28 KWADWO BRAGG: [id number] [facility] [place] [address]Sob: () [facility] 05/07/2024 KWADWO BRAGG: [place] [address]Wzj: (HP) Primary Insurance:TRICAREPolic y Number: [id number] Date:2023-03-10 KWADWO BRAGG: [id number] [place] [address] [facility] EPIC 05/07/2024 Secondary Insurance:HUMANA MEDICARE ADVANTAGEPolicy Number: [id number] Date:2022-05-28 KWADWO BRAGG: [id number] [place] [address] [facility] 04/28/2024 KWADWO Garcia YEMI: [address] ATel: ~~(4 1 (HP) Primary Insurance:HUMANAPolicy Number: [id number] Date:9883-90-15AP [address] [address]LI: KWADWO Garcia [facility] 04/28/2024 Secondary Insurance:[facility] CLAIMPolicy Number: [id number] Date:2022-05-28 KWADWO Garcia [facility] 04/25/2024 KWADWO Garcia ALIZEB: [id number] [address] ATel: ~~(4 1 (HP) Primary Insurance:HUMANAPolicy Number: [id number] Date:4840-42-44BP [address] [address]XF: KWADWO Garcia [facility] 04/25/2024 Secondary Insurance:[facility] CLAIMPolicy Number: [id number] Date:2024-04-25 KWADWO Garcia [facility] 04/25/2024 KWADWO Garcia ALIZEB: [id number] [address] ATel: ~~(4 1 (HP) Primary Insurance:HUMANAPolicy Number: [id number] Date:7082-32-38QP [address] [address]SU: KWADWO Garcia [facility] 04/25/2024 Secondary Insurance:[facility] CLAIMPolicy Number: [id number] Date:2022-05-28 KWADWO Garcia [facility] 04/16/2024 KWADWO Garcia ALIZEB: [id number] [address] ATel: ~~(4 1 (HP) Primary Insurance:HUMANAPolicy Number: [id number] Date:4101-54-86DF [address] [address] [address]DF: KWADWO Jose SHITALGREGORIO [facility] 04/16/2024 Secondary Insurance:[facility] CLAIMPolicy Number: [id number] Date:2022-05-28 KWADWO Garcia SHITALGREGORIO [facility] 03/26/2024 KWADWO GROSSMANB: [id number] [place] [address]Gse: (HP) Primary Insurance:TRICAREPolic y Number: [id number] Date:2023-03-10 KWADWO GROSSMANB: [id number] [place] [address] [facility] EPIC 03/26/2024 Secondary Insurance:HUMANA MEDICARE ADVANTAGEPolicy Number: [id number] Date:2022-05-28 KWADWO GROSSMANB: [id number] [place] [address] [facility] EPIC 02/27/2024 KWADWO GROSSMANB: [place] [address]Vys: (HP) Primary Insurance:TRICAREPolic y Number: [id number] Date:2023-03-10 KWADWO RGOSSMANB: [id number] [place] [address] [facility] EPIC 02/27/2024 Secondary Insurance:HUMANA MEDICARE ADVANTAGEPolicy Number: [id number] Date:2022-05-28 KWADWO BRAGG: [id number] [place] [address] [facility] EPIC 2024 KWADWO GROSSMANB: [id number] [place] [address]Rlo: () Primary Insurance:[facility]Pol[facility] Number: [id number] Date:2023-03-10 KWADWO BRAGG: [id number] [place] [address] [facility] 2024 Secondary Insurance:HUMAN MEDICARE ADVANTAGEPoly Number: [id number] Date:2022-05-28 KWADWO BRAGG: [id number] [place] [address] [facility]
[2024-10-18 20:23] VITALS: BP 120/78; PULSE 88; TEMP 36.9; O2SAT 88; BMI 33.5
[2024-10-18 20:45] VITALS: PULSE 84; O2SAT 95
--- NOTE | 2024-10-18 20:49 | ECG_ITS ---
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 Measurements Intervals [place] Rate: 84 P: 32 NV: 164 QRS: -9 QRSD: 100 T: 120 QT: 372 QTc: 413 Interpretive Statements 1100 Sinus rhythm 5234 Left ventricular hypertrophy with repolarization abnormality 9150 abnormal ECG Compared to ECG 10/16/2024 09:11:58 No significant changes Electronically Signed On 10-19-2024 13:49:25 EDT by MELANY CHEN M.D.
[2024-10-18 21:00] LABS: Basophils Percent Auto 0.2 % (0.2-2.0); Eosinophils Absolute Auto 0.5 10^3/uL (0.0-0.7); Eosinophils Percent Auto 3.8 % (0.9-7.0); Hematocrit 41.2 % (42.0-54.0); Hemoglobin 14.3 g/dL (14.0-18.0); Immature Granulocytes Abs Auto 0.27 10^3/uL (0.00-0.03); Immature Granulocytes Pct Auto 2.3 % (0.0-0.5); Lymphocytes Absolute Auto 1.6 10^3/uL (1.2-3.8); Lymphocytes Percent Auto 13.1 % (20.5-60.0); Mean Corpuscular HGB Conc 34.7 g/dL (29.9-35.2); Mean Corpuscular Hemoglobin 28.9 pg (25.9-34.0); Mean Corpuscular Volume 83.2 fL (80.0-94.0); Monocytes Absolute Auto 1.4 10^3/uL (0.3-0.8); Monocytes Percent Auto 11.5 % (1.7-12.0); Neutrophils Absolute Auto 8.1 10^3/uL (1.4-6.5); Neutrophils Percent Auto 69.1 % (43.0-75.0); Platelet Count 196 10^3/uL (150-450); Red Blood Count 4.95 10^6/uL (4.70-6.10); Red Cell Distribution Width 14.2 % (11.0-15.0); White Blood Count 11.8 10^3/uL (4.0-11.0)
[2024-10-18 21:20] VITALS: PULSE 91; O2SAT 96
[2024-10-18 21:20] LABS: Lactate/Lactic Acid 1.7 mmol/L (0.4-2.0)
[2024-10-18] MEDS: IPRATROPIUM/ALBUTEROL SULFATE 3 ML AMPUL.NEB IH (21:20)
[2024-10-18 21:26] LABS: Alanine Aminotransferase 31 U/L (16-63); Albumin Globulin Ratio 0.8; Albumin Level 2.8 g/dL (3.4-5.0); Alkaline Phosphatase 69 U/L (46-116); Anion Gap 12.1; Aspartate Amino Transferase 20 U/L (15-37); BUN Creatinine Ratio 25.3; Bilirubin Total 0.7 mg/dL (0.2-1.0); Calcium 8.8 mg/dL (8.5-10.1); Chloride 93 mmol/L (98-107); Estimated GFR (African America >60 (>=60 mL/min/1.73m^2); Estimated GFR (Non-African Ame >60 (>=60 mL/min/1.73m^2); Globulin 3.6 g/dL; Glucose 117 mg/dL (74-106); Potassium 4.1 mmol/L (3.5-5.1); Sodium 127 mmol/L (136-145); Total Protein 6.4 g/dL (6.4-8.2); Troponin I High Sensitivity 19.3 pg/mL (4.0-76.1)
[2024-10-18] MEDS: METHYLPREDNISOLONE SOD SUCC PF 125 MG/2 ML VIAL IVP (21:35)
--- NOTE | 2024-10-18 21:58 | ED.SOB1 ---
HPI - SOB/Dyspnea General Chief Complaint: Shortness of Breath/Dyspnea Stated Complaint: SOB, COUGHING, LOW OXYGEN Time Seen by Provider: 10/18/24 20:25 Source: patient and family Mode of arrival: Wheelchair Limitations: no limitations History of Present Illness HPI Narrative: cc -shortness of breath 69-year-old male who was just transferred from this facility on October 16, 2024 now returns complaining of continued shortness of breath and with low oxygenation at home. Patient was admitted initially for COPD exacerbation and then later developed sepsis secondary to pneumonia. He also developed elevated BNP suggestive of an acute flare of congestive heart failure. He did not respond well to diuresis and was found to have a low ejection fraction at 25% and was transferred to [facility] in order to be admitted to [facility] and undergo cardiac catheterization with Dr. Davis. According to the patient and the , the patient's 5 stents were okay according to Dr. Davis and the patient was released from [facility] at approximately 3 PM today with prescriptions for spironolactone, Farxiga and Entresto. He worsened within only a few hours of being at home and he was brought back to our emergency department for evaluation and treatment. On arrival his oxygenation level/pulse ox was in the 80s on arrival by private vehicle we first evaluated him in the ED. Patient denied any chest pain, palpitations but he did have a severe continuous cough and was complaining of shortness of breath. Related Data Home Medications ?Medication ?Instructions ?Recorded ?Confirmed omeprazole 20 mg capsule,delayed 20 mg PO Q24H PRN heartburn 07/22/23 10/18/24 release tamsulosin 0.4 mg capsule 0.8 mg PO .qhs 07/22/23 10/18/24 furosemide 40 mg tablet (Lasix) 40 mg PO DAILY PRN edema 10/09/24 10/18/24 benzonatate 100 mg capsule 200 mg PO TID PRN cough 10/18/24 10/18/24 budesonide-formoterol HFA 160 2 inh inhalation BID 10/18/24 10/18/24 mcg-4.5 mcg/actuation aerosol inhaler (Breyna) dapagliflozin propanediol 10 mg 10 mg PO DAILY 10/18/24 10/18/24 tablet fluticasone propionate 115 2 inh inhalation BID 10/18/24 10/18/24 mcg-salmeterol 21 mcg/actuation HFA inhaler (Advair HFA) sacubitril 24 mg-valsartan 26 mg 1 tab PO BID 10/18/24 10/18/24 tablet (Entresto) spironolactone 25 mg tablet 12.5 mg PO DAILY 10/18/24 10/18/24 Previous Rx's ?Medication ?Instructions ?Recorded albuterol sulfate 90 mcg/actuation 2 inh inhalation Q6H PRN shortness 12/25/23 aerosol inhaler (Ventolin HFA) of breath or wheezing #6.7 grams ipratropium 0.5 mg-albuterol 3 mg 3 ml inhalation Q6H PRN shortness 02/02/24 (2.5 mg base)/3 mL nebulization of breath #90 mL soln amoxicillin 875 mg-potassium 1 tab PO Q12H #20 tabs 10/13/24 clavulanate 125 mg tablet carvedilol 12.5 mg tablet (Coreg) 12.5 mg PO BID #60 tabs 10/13/24 cetirizine 10 mg tablet 10 mg PO QD #30 tabs 10/13/24 fluticasone propionate 50 2 spray intranasal QD #16 grams 10/13/24 mcg/actuation nasal spray,suspension montelukast 10 mg tablet 10 mg PO DAILY #30 tabs 10/13/24 (Singulair) prednisone 10 mg tablet 40 mg (4 x 10 mg) PO DAILY #32 tabs 10/13/24 Allergies Allergy/AdvReac Type Severity Reaction Status Date / Time codeine AdvReac Intermediate Hallucinati Verified 10/18/24 20:23 [facility] History Pneumonia due to COVID-19 virus ?U07.1 - COVID-19 (ICD-10) ?J12.82 - Pneumonia due to coronavirus disease 2019 (ICD-10) COVID-19 ?U07.1 - COVID-19 (ICD-10) Acute on chronic congestive heart failure ?I50.9 - Heart failure, unspecified (ICD-10) COPD exacerbation ?J44.1 - Chronic obstructive pulmonary disease with (acute) exacerbation (ICD-10) Congestive heart failure ?I50.9 - Heart failure, unspecified (ICD-10) BPH (benign prostatic hyperplasia) ?N40.0 - Benign prostatic hyperplasia without lower urinary tract symptoms (ICD-10) CAD (coronary artery disease) ?I25.10 - Atherosclerotic heart disease of [place] coronary artery without angina pectoris (ICD-10) GERD (gastroesophageal reflux disease) ?K21.9 - Gastro-esophageal reflux disease without esophagitis (ICD-10) Hypertension ?I10 - Essential (primary) hypertension (ICD-10) COPD (chronic obstructive pulmonary disease) ?J44.9 - Chronic obstructive pulmonary disease, unspecified (ICD-10) Bronchitis ?J40 - Bronchitis, not specified as acute or chronic (ICD-10) Emphysema of lung ?J43.9 - Emphysema, unspecified (ICD-10) Heart attack ?I21.9 - Acute myocardial infarction, unspecified (ICD-10) COPD exacerbation ?J44.1 - Chronic obstructive pulmonary disease with (acute) exacerbation (ICD-10) COVID-19 ?U07.1 - COVID-19 (ICD-10) Surgical History H/O sinus surgery ?Z98.890 - Other specified postprocedural states (ICD-10) H/O shoulder surgery ?Z98.890 - Other specified postprocedural states (ICD-10) H/O heart artery stent ?Z95.5 - Presence of coronary angioplasty implant and graft (ICD-10) Family History Aunt Family history of cancer Mother Family history of diabetes mellitus Brother Family history of hypertension Father Family history of hypertension Social History Within the past year, how often did you have a drink containing alcohol: never Score interpretation: A score less than 4 is consistent with normal alcohol consumption. 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 Known occupational exposures/hazards: No Highest level of school completed/degree received: high school graduate Are you now , , , , never or living with a partner: In a typical week, how many times do you talk on the telephone with family, friends, or neighbors: 3 or more times per week How often do you get together with friends or relatives: 3 or more times per week How often do you attend religion or spiritism services: never Little interest or pleasure in doing things: not at all Feeling down, depressed, or hopeless: not at all Feel stressed/tense/nervous/anxious/difficulty sleeping: not at all Do you think of yourself as: straight/heterosexual Gender Identity: male Exam Narrative Exam Narrative: Nurses notes and vital signs reviewed and patient ISt hypoxic. afebrile General: Tachypneic with frequent cough. Skin: Warm, dry, no pallor noted. No rash. Head: Normocephalic, atraumatic. Neck: Supple, non-tender. No lymphadenopathy. No meningismus Eye: Pupils are equal, round and EOMI. No scleral icterus. Ears, Nose, Mouth, and Throat: No nasal mucosal hypertrophy or rhinorrhea. Oral mucosa is moist Cardiovascular: Regular Rate and Rhythm without murmur, gallop or rub. Respiratory: No accessory muscle use or respiratory distress. Lungs with scattered rhonchi and bibasilar wheezes Chest Wall: no tenderness, crepitus or subcutaneous emphysema Musculoskeletal: normal ROM, no calf or popliteal tenderness. 1-2+ pitting bilateral lower extremity edema/swelling GI: Abdomen is soft, non-distended. Normal bowel sounds. No tenderness to palpation. No rebound, guarding, or rigidity noted. Neurological: A&O x4. No cranial nerve dysfunction observed. No truncal ataxia. Moves all extremities. Sensation intact. Psychiatric: Cooperative and interactive. Normal mood and affect. Constitutional Vital Signs, click to edit/add: Last Vital Signs Temp 98.4 F 10/18/24 20:23 Pulse 91 H 10/18/24 21:20 Resp 24 H 10/18/24 21:20 BP 120/78 10/18/24 20:23 Pulse Ox 96 10/18/24 21:20 O2 Del Method Nasal Cannula 10/18/24 21:20 O2 Flow Rate 2.5 10/18/24 21:20 Course Vital Signs Vital signs: Vital Signs Temperature 98.4 F 10/18/24 20:23 Pulse Rate 88 10/18/24 20:23 Respiratory Rate 24 H 10/18/24 20:23 Blood Pressure 120/78 10/18/24 20:23 Pulse Oximetry 88 L 10/18/24 20:23 Oxygen Delivery Method Room Air 10/18/24 20:23 Temperature 98.4 F 10/18/24 20:23 Pulse Rate 91 H 10/18/24 21:20 Respiratory Rate 24 H 10/18/24 21:20 Blood Pressure 120/78 10/18/24 20:23 Pulse Oximetry 96 10/18/24 21:20 Oxygen Delivery Method Nasal Cannula 10/18/24 21:20 Oxygen Delivery Flow Rate 2.5 10/18/24 21:20 MDM - SOB/Dyspnea MDM Narrative Medical decision making narrative: Patient is acutely hypoxic on presentation. Patient was placed on pvc monitor, given 2 L/min nasal cannula O2 and EKG obtained. Blood drawn and sent for evaluation. Portable chest x-ray obtained. He was ordered to receive Bumex. He was also ordered to receive IV Solu-Medrol, DuoNeb treatment with albuterol and Atrovent. Lab test reviewed with a white count of 11.8 which is just above the upper limit of normal. Lactate is negative. Sodium is slightly decreased at 127 he has had hypotension in the. BUN is slightly elevated at 23 with creatinine of close is not markedly elevated to suggest a pseudo hyponatremia. Troponin and BNP are normal. Chest x-ray does not show any focal infiltrate, pneumothorax or other worrisome finding. Patient does not have access to home O2. I discussed this patient's case with the telehospitalist. Lexi Fischer agreed to admit this patient on behalf of Dr. Klein, the patient's primary care provider, who will see him at [facility] tomorrow morning. Patient family are agreeable to admission. On reevaluation patient had improvement with regards to his cough and breathing after receiving DuoNeb treatment, Solu-Medrol as well as Bumex. Medical Records Attestation: I reviewed the patient's medical records. Medical records narrative: I reviewed the patient's recent hospitalization and transfer to [facility] and this is outlined and detailed in the HPI Lab Data Attestation: I reviewed the patient's lab results. Labs: Lab Results 10/18/24 Range/Units 20:45 WBC 11.8 H (4.0-11.0) 10^3/uL RBC 4.95 (4.70-6.10) 10^6/uL Hgb 14.3 (14.0-18.0) g/dL Hct 41.2 L (42.0-54.0) % MCV 83.2 (80.0-94.0) fL MCH 28.9 (25.9-34.0) pg MCHC 34.7 (29.9-35.2) g/dL RDW 14.2 (11.0-15.0) % Plt Count 196 (150-450) 10^3/uL MPV 10.0 (9.5-13.5) fL Neut % (Auto) 69.1 (43.0-75.0) % Lymph % (Auto) 13.1 L (20.5-60.0) % [place] % (Auto) 11.5 (1.7-12.0) % Eos % (Auto) 3.8 (0.9-7.0) % Baso % (Auto) 0.2 (0.2-2.0) % Neut # (Auto) 8.1 H (1.4-6.5) 10^3/uL Lymph # (Auto) 1.6 (1.2-3.8) 10^3/uL [place] # (Auto) 1.4 H (0.3-0.8) 10^3/uL Eos # (Auto) 0.5 (0.0-0.7) 10^3/uL Baso # (Auto) 0.0 (0.0-0.1) 10^3/uL Abs Immat Gran (auto) 0.27 H (0.00-0.03) 10^3/uL Imm/Tot Granulo (auto) 2.3 H (0.0-0.5) % Sodium 127 L (136-145) mmol/L Potassium 4.1 (3.5-5.1) mmol/L Chloride 93 L (98-107) mmol/L Carbon Dioxide 26.0 (21.0-32.0) mmol/L Anion Gap 12.1 BUN 23.0 H (7.0-18.0) mg/dL Creatinine 0.91 (0.70-1.30) mg/dL Est GFR ( Amer) >60 (>=60 mL/min/1.73m^2) Est GFR (Non-Af Amer) >60 (>=60 mL/min/1.73m^2) BUN/Creatinine Ratio 25.3 Glucose 117 H (74-106) mg/dL Lactate 1.7 (0.4-2.0) mmol/L Calcium 8.8 (8.5-10.1) mg/dL Total Bilirubin 0.7 (0.2-1.0) mg/dL AST 20 (15-37) U/L ALT 31 (16-63) U/L Alkaline Phosphatase 69 (46-116) U/L Troponin I High Sens 19.3 (4.0-76.1) pg/mL NT-Pro-B Natriuret Pep 70.0 (<=900.0) pg/mL Total Protein 6.4 (6.4-8.2) g/dL Albumin 2.8 L (3.4-5.0) g/dL Globulin 3.6 g/dL Albumin/Globulin Ratio 0.8 Imaging Data Chest x-ray: Attestation: I have reviewed the pertinent imaging results. ECG Data Attestation: I personally reviewed and interpreted this ECG as follows: Interpretation: EKG interpretation: Emergency Department physician interpretation. Normal sinus rhythm at 84bpm. Left ventricular hypertrophy with repolarization changes. T wave inversion is noted in leads I and aVL. No ST segment elevation or marked depression. Discharge Plan Discharge Chief Complaint: Shortness of Breath/Dyspnea Clinical Impression: Hypoxia, COPD exacerbation, Acute hyponatremia Patient Disposition: Admitted As Inpatient Time of Disposition Decision: 22:01
[2024-10-18] MEDS: BUMETANIDE 1 MG/4 ML VIAL 2 MG IVP (22:04)
[2024-10-18 22:55] VITALS: BP 100/58; PULSE 90; O2SAT 93
[2024-10-18 23:12] VITALS: BP 106/72; PULSE 88; TEMP 36.6; O2SAT 92; BMI 34.0
[2024-10-18 23:13] VITALS: PULSE 92
[2024-10-18] MEDS: FLUTICASONE PROPIONATE 50 MCG NASAL SPRAY 2 SPRAY NS (23:33)
[2024-10-18] MEDS: BENZONATATE 100 MG CAPSULE 200 MG PO (23:34)
[2024-10-18] MEDS: AMOXICILLIN/POT CLAV 875-125 MG TABLET 1 TAB PO (23:34)
[2024-10-18] MEDS: CETIRIZINE HCL 10 MG TABLET PO (23:34)
[2024-10-18] MEDS: TAMSULOSIN HCL 0.4 MG CAPSULE 0.8 MG PO (23:34)
[2024-10-18] MEDS: ENOXAPARIN SODIUM 40 MG/0.4 ML SYRINGE SUBQ (23:34)
[2024-10-18 23:58] LABS: Bilirubin Urine NEGATIVE (NEGATIVE); Blood Urine NEGATIVE (NEGATIVE); Clarity Urine CLEAR (CLEAR); Color Urine LT. YELLOW (YELLOW); Glucose Urine UA >=1000 mg/dL (NEGATIVE); Ketones Urine NEGATIVE (NEGATIVE); Leukocyte Esterase Urine NEGATIVE (NEGATIVE); Nitrite Urine NEGATIVE (NEGATIVE); Protein Urine NEGATIVE (NEG/TRACE); Urobilinogen Urine 0.2 EU/dL (0.2-1.0)
[2024-10-19] VITALS (20 sets, daily range): BP systolic 111–128; BP diastolic 60–76; PULSE 44–97; TEMP 36.3–36.8; O2SAT 88–96
[2024-10-19 00:22] LABS: Thyroid Stimulating Hormone 3.429 uIU/mL (0.358-3.740); Troponin I High Sensitivity 13.4 pg/mL (4.0-76.1)
[2024-10-19 00:46] LABS: Bacteria Urine TRACE #/HPF (NONE SEEN); Cast Seen? NONE SEEN #/LPF (NONE SEEN); Crystals Seen? None Seen #/HPF (None Seen); Mucus Urine NONE SEEN (NONE SEEN); RBC Urine NONE SEEN #/HPF (0-2); Squamous Epithelial Cell Urine NONE SEEN #/LPF (NONE/RARE); WBC Urine NONE SEEN #/HPF (NONE SEEN)
[2024-10-19] MEDS: BENZONATATE 100 MG CAPSULE 200 MG PO ×4 (05:05→22:02)
[2024-10-19 06:17] LABS: Basophils Percent Auto 0.1 % (0.2-2.0); Eosinophils Percent Auto 0.3 % (0.9-7.0); Hematocrit 40.6 % (42.0-54.0); Hemoglobin 14.4 g/dL (14.0-18.0); Immature Granulocytes Abs Auto 0.24 10^3/uL (0.00-0.03); Immature Granulocytes Pct Auto 3.1 % (0.0-0.5); Lymphocytes Absolute Auto 0.7 10^3/uL (1.2-3.8); Lymphocytes Percent Auto 8.7 % (20.5-60.0); Mean Corpuscular HGB Conc 35.5 g/dL (29.9-35.2); Mean Corpuscular Hemoglobin 29.3 pg (25.9-34.0); Mean Corpuscular Volume 82.5 fL (80.0-94.0); Monocytes Absolute Auto 0.2 10^3/uL (0.3-0.8); Monocytes Percent Auto 1.9 % (1.7-12.0); Neutrophils Absolute Auto 6.7 10^3/uL (1.4-6.5); Neutrophils Percent Auto 85.9 % (43.0-75.0); Platelet Count 174 10^3/uL (150-450); Red Blood Count 4.92 10^6/uL (4.70-6.10); Red Cell Distribution Width 14.1 % (11.0-15.0); White Blood Count 7.8 10^3/uL (4.0-11.0)
[2024-10-19 06:38] LABS: Alanine Aminotransferase 31 U/L (16-63); Albumin Globulin Ratio 0.8; Albumin Level 2.7 g/dL (3.4-5.0); Alkaline Phosphatase 70 U/L (46-116); Anion Gap 14.3; Aspartate Amino Transferase 16 U/L (15-37); BUN Creatinine Ratio 24.7; Bilirubin Total 0.7 mg/dL (0.2-1.0); Calcium 8.5 mg/dL (8.5-10.1); Chloride 95 mmol/L (98-107); Estimated GFR (African America >60 (>=60 mL/min/1.73m^2); Estimated GFR (Non-African Ame >60 (>=60 mL/min/1.73m^2); Globulin 3.6 g/dL; Glucose 177 mg/dL (74-106); Magnesium 2.1 mg/dL (1.8-2.4); Potassium 4.3 mmol/L (3.5-5.1); Sodium 131 mmol/L (136-145); Total Protein 6.3 g/dL (6.4-8.2)
[2024-10-19 06:39] LABS: Troponin I High Sensitivity 12.5 pg/mL (4.0-76.1)
[2024-10-19] MEDS: FLUTICASONE PROPIONATE 50 MCG NASAL SPRAY 2 SPRAY NS (08:50)
[2024-10-19] MEDS: SACUBITRIL/VALSARTAN 24 MG-26 MG TABLET 1 TAB PO ×2 (08:51→22:02)
[2024-10-19] MEDS: CARVEDILOL 12.5 MG TABLET PO ×2 (08:52→22:01)
[2024-10-19] MEDS: CANAGLIFLOZIN 100 MG TABLET 300 MG PO (08:52)
[2024-10-19] MEDS: PREDNISONE 20 MG TABLET 40 MG PO (08:52)
[2024-10-19] MEDS: CETIRIZINE HCL 10 MG TABLET PO (08:53)
[2024-10-19] MEDS: ENOXAPARIN SODIUM 40 MG/0.4 ML SYRINGE SUBQ (08:53)
[2024-10-19 08:58] LABS: Thyroid Stimulating Hormone 1.217 uIU/mL (0.358-3.740)
[2024-10-19] MEDS: MONTELUKAST SODIUM 10 MG TABLET PO (09:35)
[2024-10-19] MEDS: SPIRONOLACTONE 25 MG TABLET 12.5 MG PO (09:35)
--- NOTE | 2024-10-19 10:07 | P.HP_ITS ---
HPI H&P: HPI History of Present Illness Chief complaint: SOB, COUGHING, LOW OXYGEN, HYPOXIA, COPD, EXACERBA Narrative: Patient well-known to me from office care as well as his recent hospitalization and transfer, patient was admitted with pneumonia, progressed to heart failure, pneumonia difficult to resolve antibiotics were adjusted a second time, ejection fraction noted to be 25% patient transferred for cardiac cat, catheterization done at outside facility per family showed no blockages uncertain if ejection fraction was calculated at that time. Patient was discharged home without supplemental oxygen, once he got home he has severe hypoxia and shortness of breath with O2 sats in the low 80s, Re presented emergency room with acute combined congestive heart failure likely an exacerbation of his pneumonia as well with significant current cough and sputum production that is colored in nature When I saw patient up in the medical surgical floor, coughing throughout the evaluation, some conversational dyspnea patient denied chest pain, diaphoresis, nausea Opioid HPI Opioid Management Most Recent Pain and Opioid Data: Last Pain Scale 0 10/15/24, 06:00 Last Pain Assessment Today, 00:00 Last ORT Total Score 0 10/18/24, 23:12 Last ORT Risk Category Low Risk 10/18/24, 23:12 Review of Systems ROS Status of ROS 10 or more systems reviewed and unremark able except as noted in history and below PFS PFS Medical History Pneumonia due to COVID-19 virus ?U07.1 - COVID-19 (ICD-10) ?J12.82 - Pneumonia due to coronavirus disease 2019 (ICD-10) COVID-19 ?U07.1 - COVID-19 (ICD-10) Acute on chronic congestive heart failure ?I50.9 - Heart failure, unspecified (ICD-10) COPD exacerbation ?J44.1 - Chronic obstructive pulmonary disease with (acute) exacerbation (ICD-10) Congestive heart failure ?I50.9 - Heart failure, unspecified (ICD-10) BPH (benign prostatic hyperplasia) ?N40.0 - Benign prostatic hyperplasia without lower urinary tract symptoms (ICD-10) CAD (coronary artery disease) ?I25.10 - Atherosclerotic heart disease of [place] coronary artery without angina pectoris (ICD-10) GERD (gastroesophageal reflux disease) ?K21.9 - Gastro-esophageal reflux disease without esophagitis (ICD-10) Hypertension ?I10 - Essential (primary) hypertension (ICD-10) COPD (chronic obstructive pulmonary disease) ?J44.9 - Chronic obstructive pulmonary disease, unspecified (ICD-10) Bronchitis ?J40 - Bronchitis, not specified as acute or chronic (ICD-10) Emphysema of lung ?J43.9 - Emphysema, unspecified (ICD-10) Heart attack ?I21.9 - Acute myocardial infarction, unspecified (ICD-10) COPD exacerbation ?J44.1 - Chronic obstructive pulmonary disease with (acute) exacerbation (ICD-10) COVID-19 ?U07.1 - COVID-19 (ICD-10) Surgical History H/O sinus surgery ?Z98.890 - Other specified postprocedural states (ICD-10) H/O shoulder surgery ?Z98.890 - Other specified postprocedural states (ICD-10) H/O heart artery stent ?Z95.5 - Presence of coronary angioplasty implant and graft (ICD-10) Family History Aunt Family history of cancer Mother Family history of diabetes mellitus Brother Family history of hypertension Father Family history of hypertension Social History Within the past year, how often did you have a drink containing alcohol: never Score interpretation: A score less than 4 is consistent with normal alcohol consumption. 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 Known occupational exposures/hazards: No Highest level of school completed/degree received: high school graduate Are you now , , , , never or living with a partner: In a typical week, how many times do you talk on the telephone with family, friends, or neighbors: 3 or more times per week How often do you get together with friends or relatives: 3 or more times per week How often do you attend anabaptist or hindu services: never Little interest or pleasure in doing things: not at all Feeling down, depressed, or hopeless: not at all Feel stressed/tense/nervous/anxious/difficulty sleeping: not at all Do you think of yourself as: straight/heterosexual Gender Identity: male Meds Home Medications and Allergies Home Medications ?Medication ?Instructions ?Recorded ?Confirmed ?Type omeprazole 20 mg capsule,delayed 20 mg PO Q24H PRN hea rtburn 07/22/23 10/18/24 History release tamsulosin 0.4 mg capsule 0.8 mg PO .qhs 07/22/23/09/19 History albuterol sulfate 90 mcg/actuation 2 inh inhalation Q6 H PRN shortness 12/25/23 10/18/24 Rx aerosol inhaler (Ventolin HFA) of breath or wheezing # 6.7 grams ipratropium 0.5 mg-albuterol 3 mg 3 ml inhalation Q6H PRN shortness 02/02/24 10/18/24 Rx (2.5 mg base)/3 mL nebulization of breath #90 mL soln furosemide 40 mg tablet (Lasix) 40 mg PO DAILY PRN vince ma 10/09/24 10/18/24 History amoxicillin 875 mg-potassium 1 tab PO Q12H #20 tabs 10/18/24 Rx clavulanate 125 mg tablet carvedilol 12.5 mg tablet (Coreg) 12.5 mg PO BID #60 t abs 10/13/24 10/18/24 Rx cetirizine 10 mg tablet 10 mg PO QD #30 tabs 5 10/18/24 Rx fluticasone propionate 50 2 spray intranasal QD #16 gr ams 10/13/24 10/18/24 Rx mcg/actuation nasal spray,suspension montelukast 10 mg tablet 10 mg PO DAILY #30 tabs 09/2510/18/24 Rx (Singulair) prednisone 10 mg tablet 40 mg (4 x 10 mg) PO DAILY # 32 tabs 10/13/24 10/18/24 Rx budesonide-formoterol HFA 160 2 inh inhalation BID 10/18/24 History mcg-4.5 mcg/actuation aerosol inhaler (Breyna) dapagliflozin propanediol 10 mg 10 mg PO DAILY 5 10/18/24 History tablet fluticasone propionate 115 2 inh inhalation BID 10/18/24 History mcg-salmeterol 21 mcg/actuation HFA inhaler (Advair HFA) sacubitril 24 mg-valsartan 26 mg 1 tab PO BID 10/18/24 10/18/24 History tablet (Entresto) spironolactone 25 mg tablet 12.5 mg PO DAILY 10/18/24 10/18/24 History Allergies Allergy/AdvReac Type Severity Reaction Status Date / Time codeine AdvReac Intermediate Hallucinati Verified 10/18/24 20:23 ng Exam Constitutional Vital Signs, click to edit/add: Last Vital Signs Temp 97.4 F L 10/19/24 08:14 Pulse 93 H 10/19/24 09:54 Resp 16 10/19/24 08:14 BP 113/63 10/19/24 08:14 Pulse Ox 92 L 10/19/24 08:14 O2 Del Method Room Air 10/19/24 08:14 O2 Flow Rate 2 10/19/24 08:14 Documenting provider has reviewed patient's vital signs: yes Common normals: apparent distress (Mild conversational dyspnea) Chest Common normals: inspection of chest normal Respiratory Common normals: abnormal respiratory effort (Mild conversational dyspnea) Auscultation: rales and rhonchi Cardio Common normals: regular rate, regular rhythm and no murmurs Extremity Common normals: abnormal to inspection (1+ edema) Results Labs Labs: Short CBC 10/18/24 10/19/24 Range/Units 20:45 05:50 WBC 11.8 H 7.8 (4.0-11.0) 10^3/uL Hgb 14.3 14.4 (14.0-18.0) g/dL Hct 41.2 L 40.6 L (42.0-54.0) % Plt Count 196 174 (150-450) 10^3/uL BMP 10/18/24 10/19/24 20:45 05:50 Sodium 127 L 131 L Potassium 4.1 4.3 Chloride 93 L 95 L Carbon Dioxide 26.0 26.0 BUN 23.0 H 23.0 H Creatinine 0.91 0.93 Glucose 117 H 177 H Calcium 8.8 8.5 Liver Function 10/18/24 10/19/24 Range/Units 20:45 05:50 Total Bilirubin 0.7 0.7 (0.2-1.0) mg/dL AST 20 16 (15-37) U/L ALT 31 31 (16-63) U/L Alkaline Phosphatase 69 70 (46-116) U/L Albumin 2.8 L 2.7 L (3.4-5.0) g/dL Urine 05/24/25 Range/Units 23:47 Urine Color Lt. yellow (YELLOW) Urine Clarity Clear (CLEAR) Urine pH 6.0 (5.0-9.0) Ur Specific [place] 1.010 (1.005-1.025) Urine Protein Negative (NEG/TRACE) mg/dL Urine Glucose (UA) >=1000 A (NEGATIVE) mg/dL Assessment and Plan Assessment and Plan (1) Hypoxia: (2) URI (upper respiratory infection): (3) Acute hyponatremia: (4) Congestive heart failure: (5) COPD exacerbation: (6) Chronic HFrEF (heart failure with reduced ejection fraction): (7) Acute on chronic congestive heart failure: Qualifiers: Heart failure type: combined systolic and diastolic Qualified Code(s): I50.43 - Acute on chronic combined systolic (congestive) and diastolic (congestive) heart failure (8) CAD (coronary artery disease): Qualifiers: Coronary Disease-Associated Artery/Lesion type: [place] artery [place] vs. transplanted heart: [place] heart Associated angina: without angina Qualified Code(s): I25.10 - Atherosclerotic heart disease of [place] coronary artery without angina pectoris (9) GERD (gastroesophageal reflux disease): Qualifiers: Esophagitis presence: without esophagitis Qualified Code(s): K21.9 - Gastro-esophageal reflux disease without esophagitis (10) Hypertension: Qualifiers: Hypertension type: primary hypertension Qualified Code(s): I10 - Essential (primary) hypertension (11) Moderate protein-calorie malnutrition: Plan Admission findings: Tachycardia, acute hypoxia with O2 sat in the low 80s on admission, 88% with 2 L, respiratory distress, leukocytosis, with left shift consistent with bacterial process, hyponatremia due to recurrent pneumonia causing acute exacerbation of COPD and acute combined congestive heart failure Acute combined congestive heart failure-Bumex drip today, BNP is normal so may be more of a fluid overload but with his severely reduced ejection fraction need to be aggressive with diuresis, Entresto and Jardiance have been added Acute exacerbation of COPD secondary to recurrent pneumonia-start patient just on oral antibiotics prior to reduce salt intake from Zosyn, maintain current prednisone, or frequent breathing treatments, repeat sputum culture, last urine culture did grow yeast which was not considered just a contaminant based on his pulmonary status, oral nystatin and oral Diflucan Coronary artery disease-recent heart cath shows stents were open Hyponatremia likely related to the fluid overload as outlined above-monitor daily Down somewhat today Hypertension by history-maintain current blood pressure medications GERD-continue with home medications Admission status: Patient with failed outpatient treatment as well as inpatient treatment for his pneumonia, acute exacerbation of COPD and now acute combined congestive heart failure with reduced ejection fraction, medically necessary treatment will span 2 midnights. Inpatient status
[2024-10-19] MEDS: GUAIFENESIN 600 MG TAB.ER.12H 1200 MG PO ×2 (10:29→22:02)
[2024-10-19] MEDS: AMOXICILLIN/POT CLAV 875-125 MG TABLET 1 TAB PO ×2 (10:29→22:02)
[2024-10-19] MEDS: BUMETANIDE 10 MG in 0.9 % SODIUM CHLORIDE 160 ML 20 MG IV (10:30)
[2024-10-19] MEDS: FLUCONAZOLE 100 MG TABLET 200 MG PO (10:30)
[2024-10-19 10:44] LABS: Troponin I High Sensitivity 11.1 pg/mL (4.0-76.1)
[2024-10-19] MEDS: BUDESONIDE 0.5 MG/2 ML AMPULE NEB IH ×2 (11:37→23:13)
[2024-10-19] MEDS: SODIUM CHLORIDE 0.9% INHALATION 3 ML NEB 6 ML IH ×3 (11:38→23:13)
[2024-10-19] MEDS: IPRATROPIUM/ALBUTEROL SULFATE 3 ML AMPUL.NEB IH ×3 (11:38→23:13)
[2024-10-19] MEDS: NYSTATIN 500,000 UNIT/5 ML ORAL.SUSP 500000 UNIT PO ×3 (12:28→22:02)
[2024-10-19] MEDS: TAMSULOSIN HCL 0.4 MG CAPSULE 0.8 MG PO (22:02)
[2024-10-20] VITALS (23 sets, daily range): BP systolic 98–148; BP diastolic 63–81; PULSE 50–105; TEMP 36.4–36.8; O2SAT 90–96
[2024-10-20] MEDS: NYSTATIN 500,000 UNIT/5 ML ORAL.SUSP 500000 UNIT PO ×4 (05:06→21:15)
[2024-10-20] MEDS: BENZONATATE 100 MG CAPSULE 200 MG PO ×3 (05:06→21:16)
[2024-10-20] MEDS: SODIUM CHLORIDE 0.9% INHALATION 3 ML NEB 6 ML IH ×3 (05:15→16:12)
[2024-10-20] MEDS: IPRATROPIUM/ALBUTEROL SULFATE 3 ML AMPUL.NEB IH ×4 (05:15→22:38)
[2024-10-20 07:17] LABS: Basophils Percent Auto 0.1 % (0.2-2.0); Eosinophils Percent Auto 0.1 % (0.9-7.0); Hematocrit 41.3 % (42.0-54.0); Immature Granulocytes Abs Auto 0.26 10^3/uL (0.00-0.03); Immature Granulocytes Pct Auto 1.7 % (0.0-0.5); Lymphocytes Absolute Auto 1.4 10^3/uL (1.2-3.8); Mean Corpuscular HGB Conc 33.9 g/dL (29.9-35.2); Mean Corpuscular Hemoglobin 28.3 pg (25.9-34.0); Mean Corpuscular Volume 83.6 fL (80.0-94.0); Mean Platelet Volume 10.3 fL (9.5-13.5); Monocytes Absolute Auto 1.3 10^3/uL (0.3-0.8); Monocytes Percent Auto 8.6 % (1.7-12.0); Neutrophils Absolute Auto 12.2 10^3/uL (1.4-6.5); Neutrophils Percent Auto 80.5 % (43.0-75.0); Platelet Count 172 10^3/uL (150-450); Red Blood Count 4.94 10^6/uL (4.70-6.10); Red Cell Distribution Width 14.5 % (11.0-15.0); White Blood Count 15.2 10^3/uL (4.0-11.0)
[2024-10-20 07:25] LABS: Anion Gap 14.2; BUN Creatinine Ratio 26.3; Calcium 8.9 mg/dL (8.5-10.1); Chloride 97 mmol/L (98-107); Estimated GFR (African America >60 (>=60 mL/min/1.73m^2); Estimated GFR (Non-African Ame >60 (>=60 mL/min/1.73m^2); Glucose 163 mg/dL (74-106); Potassium 4.2 mmol/L (3.5-5.1); Sodium 134 mmol/L (136-145)
--- NOTE | 2024-10-20 08:32 | P.PN_ITS ---
Progress Note: Subjective Subjective Interval history: Patient with significant increasing cough throughout the evaluation, productive sounding, sputum culture being obtained Exam Constitutional Vital Signs, click to edit/add: Last Vital Signs Temp 97.9 F 10/20/24 07:59 Pulse 81 10/20/24 08:00 Resp 18 10/20/24 07:59 BP 107/65 10/20/24 07:59 Pulse Ox 96 10/20/24 07:59 O2 Del Method Nasal Cannula 10/20/24 07:59 O2 Flow Rate 2 10/20/24 07:59 Documenting provider has reviewed patient's vital signs: yes Common normals: apparent distress (Mild conversational dyspnea) Chest Common normals: inspection of chest normal Respiratory Common normals: abnormal respiratory effort (Mild conversational dyspnea) Auscultation: rales (Still in bases) and rhonchi (Worse today) Cardio Common normals: regular rate, regular rhythm and no murmurs GI Common normals: Normal to inspection, nondistended, normoactive bowel sounds present, soft to palpation and no hepatosplenomegaly Extremity Common normals: abnormal to inspection (1+ edema persisting) Progress Note: Objective Labs Labs: Short CBC 10/20/24 Range/Units 06:52 WBC 15.2 H (4.0-11.0) 10^3/uL Hgb 14.0 (14.0-18.0) g/dL Hct 41.3 L (42.0-54.0) % Plt Count 172 (150-450) 10^3/uL BMP 10/20/24 06:52 Sodium 134 L Potassium 4.2 Chloride 97 L Carbon Dioxide 27.0 BUN 30.0 H Creatinine 1.14 Glucose 163 H Calcium 8.9 Progress Note: A&P Assessment and Plan (1) Hypoxia: (2) URI (upper respiratory infection): (3) Acute hyponatremia: (4) Congestive heart failure: (5) COPD exacerbation: (6) Chronic HFrEF (heart failure with reduced ejection fraction): (7) Acute on chronic congestive heart failure: Qualifiers: Heart failure type: combined systolic and diastolic Qualified Code(s): I50.43 - Acute on chronic combined systolic (congestive) and diastolic (congestive) heart failure (8) CAD (coronary artery disease): Qualifiers: Coronary Disease-Associated Artery/Lesion type: [place] artery [place] vs. transplanted heart: [place] heart Associated angina: without angina Qualified Code(s): I25.10 - Atherosclerotic heart disease of [place] coronary artery without angina pectoris (9) GERD (gastroesophageal reflux disease): Qualifiers: Esophagitis presence: without esophagitis Qualified Code(s): K21.9 - Gastro-esophageal reflux disease without esophagitis (10) Hypertension: Qualifiers: Hypertension type: primary hypertension Qualified Code(s): I10 - Essential (primary) hypertension (11) Moderate protein-calorie malnutrition: Plan Admission findings: Tachycardia, acute hypoxia with O2 sat in the low 80s on admission, 88% with 2 L, respiratory distress, leukocytosis, with left shift consistent with bacterial process, hyponatremia due to recurrent pneumonia causing acute exacerbation of COPD and acute combined congestive heart failure Acute combined congestive heart failure-good diuresis yesterday, 3.9 L, still with some fluid overload will repeat Bumex drip again today Acute exacerbation of COPD secondary to recurrent pneumonia-white blood cell count elevated today so significant leukocytosis - has not had change in steroids that would induce that, will change antibiotics cough sounds worse today, trying to obtain sputum culture Coronary artery disease-recent heart cath shows stents were open Hyponatremia likely related to the fluid overload as outlined above-improved today Hypertension by history-maintain current blood pressure medications GERD-continue with home medications Admission status: Patient with failed outpatient treatment as well as inpatient treatment for his pneumonia, acute exacerbation of COPD and now acute combined congestive heart failure with reduced ejection fraction, medically necessary treatment will span 2 midnights. Inpatient status ?
[2024-10-20] MEDS: BUMETANIDE 10 MG in 0.9 % SODIUM CHLORIDE 160 ML 20 MG IV (09:59)
[2024-10-20] MEDS: CANAGLIFLOZIN 100 MG TABLET 300 MG PO (10:00)
[2024-10-20] MEDS: GUAIFENESIN 600 MG TAB.ER.12H 1200 MG PO ×2 (10:01→21:16)
[2024-10-20] MEDS: PANTOPRAZOLE SODIUM 40 MG TABLET.DR PO (10:01)
[2024-10-20] MEDS: SPIRONOLACTONE 25 MG TABLET 12.5 MG PO (10:01)
[2024-10-20] MEDS: CETIRIZINE HCL 10 MG TABLET PO (10:01)
[2024-10-20] MEDS: MONTELUKAST SODIUM 10 MG TABLET PO (10:02)
[2024-10-20] MEDS: SACUBITRIL/VALSARTAN 24 MG-26 MG TABLET 1 TAB PO ×2 (10:02→21:15)
[2024-10-20] MEDS: ENOXAPARIN SODIUM 40 MG/0.4 ML SYRINGE SUBQ (10:02)
[2024-10-20] MEDS: FLUTICASONE PROPIONATE 50 MCG NASAL SPRAY 2 SPRAY NS (10:03)
[2024-10-20] MEDS: CEFTRIAXONE 1,000 MG in 0.9 % SODIUM CHLORIDE 50 ML 100 MG IV (10:04)
[2024-10-20] MEDS: PREDNISONE 20 MG TABLET 40 MG PO (10:10)
[2024-10-20] MEDS: FLUCONAZOLE 100 MG TABLET 200 MG PO (10:10)
[2024-10-20] MEDS: LEVOFLOXACIN IN DEXTROSE 5 % 750 MG/150 ML PREMIX 100 MG IV (10:57)
[2024-10-20] MEDS: BUDESONIDE 0.5 MG/2 ML AMPULE NEB IH ×2 (11:11→22:38)
[2024-10-20] MEDS: CARVEDILOL 12.5 MG TABLET PO (21:15)
[2024-10-20] MEDS: TAMSULOSIN HCL 0.4 MG CAPSULE 0.8 MG PO (21:16)
[2024-10-21] VITALS (14 sets, daily range): BP systolic 97–116; BP diastolic 71–72; PULSE 73–89; TEMP 36.3–36.7; O2SAT 86–96
[2024-10-21] MEDS: IPRATROPIUM/ALBUTEROL SULFATE 3 ML AMPUL.NEB IH ×2 (04:20→11:24)
[2024-10-21] MEDS: SODIUM CHLORIDE 0.9% INHALATION 3 ML NEB 6 ML IH (04:20)
[2024-10-21] MEDS: NYSTATIN 500,000 UNIT/5 ML ORAL.SUSP 500000 UNIT PO ×2 (05:00→11:57)
[2024-10-21] MEDS: BENZONATATE 100 MG CAPSULE 200 MG PO ×2 (05:00→15:19)
[2024-10-21 05:17] LABS: Basophils Percent Auto 0.2 % (0.2-2.0); Eosinophils Percent Auto 0.1 % (0.9-7.0); Hematocrit 42.4 % (42.0-54.0); Hemoglobin 14.7 g/dL (14.0-18.0); Immature Granulocytes Abs Auto 0.17 10^3/uL (0.00-0.03); Immature Granulocytes Pct Auto 1.3 % (0.0-0.5); Lymphocytes Absolute Auto 1.9 10^3/uL (1.2-3.8); Mean Corpuscular HGB Conc 34.7 g/dL (29.9-35.2); Mean Corpuscular Hemoglobin 28.7 pg (25.9-34.0); Mean Corpuscular Volume 82.8 fL (80.0-94.0); Monocytes Absolute Auto 1.2 10^3/uL (0.3-0.8); Monocytes Percent Auto 8.8 % (1.7-12.0); Neutrophils Absolute Auto 10.2 10^3/uL (1.4-6.5); Neutrophils Percent Auto 75.6 % (43.0-75.0); Platelet Count 210 10^3/uL (150-450); Red Blood Count 5.12 10^6/uL (4.70-6.10); Red Cell Distribution Width 14.6 % (11.0-15.0); White Blood Count 13.5 10^3/uL (4.0-11.0)
[2024-10-21 05:27] LABS: Anion Gap 14.4; Calcium 9.2 mg/dL (8.5-10.1); Carbon Dioxide 27.3 mmol/L (21.0-32.0); Chloride 96 mmol/L (98-107); Estimated GFR (African America >60 (>=60 mL/min/1.73m^2); Estimated GFR (Non-African Ame 51 (>=60 mL/min/1.73m^2); Glucose 202 mg/dL (74-106); Potassium 3.7 mmol/L (3.5-5.1); Sodium 134 mmol/L (136-145)
--- OUTSIDE RECORDS SUMMARY | 2024-10-21 07:22 | XMS_ITS | Continuity of Care Document ---
Author Name [facility] Organization [facility] Care Team Providers Care Iridologist Name Role Phone [facility] Unavailable Unavailable Problems Combined list of problems from [facility] and [facility] facilities. It does not include entries that were removed or entered in error. 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 Condition [facility] Bronchial asthma Active Condition [facility] Chronic ischemic heart disease (SNOMED CT 970707079) Active Condition Nov 16, 2011 Entered By: DONAL NEGRON Comment: 5 stents placed Jun 2009 [facility] Chronic obstructive lung disease Active Condition [facility] Chronic sinusitis (SNOMED CT 19154880) Active Condition [facility] Enlarged prostate Active Condition [facility] Essential hypertension (SNOMED CT 74720999) Active Condition [facility] Exposure to Potentially Hazardous Substance (SCT [id number]) Active Condition [facility] Jada's syndrome pupil Active Condition [facility] Hyperlipidemia (SNOMED CT 56599245) Active Condition [facility] Polyp of nasal sinus Active Condition [facility] Testicular hypofunction Active Condition [facility] Tinnitus Active Condition [facility] Diagnosis: ICD-10-CM G47.33 Obstructive sleep apnea (adult) (pediatric) Active Diagnosis [facility] Diagnosis: ICD-10-CM N40.1 Benign prostatic hyperplasia with lower urinary tract symp Active Diagnosis [facility] Diagnosis: ICD-10-CM G47.30 Sleep apnea, unspecified Active Diagnosis [facility] Diagnosis: ICD-10-CM Z13.9 Encounter for screening, unspecified Active Diagnosis [facility] Diagnosis: ICD-10-CM I10 Essential (primary) hypertension Active Diagnosis [facility] Medications Combined list of outpatient medications from Department of [facility] and [facility] facilities.Medications provided include 1) outpatient medications from the last 15 months, and 2) patient-reported medications. Medication Details Route Status Patient Instructions Prescription Expires Prescription Number Last Dispense Date Ordering Provider Order Date Order Qty Source ACETAMINOPH EN/DM/DOXYL AMINE LIQUID,ORAL TAKE CAPS BY MOUTH PRN ORAL ACTIVE TASIA SMITH 2017 [facility] ALBUTEROL 90MCG/ACTUA T (CFC-F) INHL,ORAL,8 .5GM DOSE COUNTER INHALE 1 OR 2 PUFFS BY MOUTH QID PRN RESPIR ATORY (INHAL ATION) ACTIVE QIRE JOSSE A [address] [facility] ALBUTEROL SO4 0.083% INHL,3ML INHALE 1 AMPULE BY MOUTH EVERY 6 HOURS NEEDED FOR SHORTNES S OF BREATH/W HEEZING FOR SHORTNES S OF BREATH, USING NEBULIZE R. RESPIR ATORY (INHAL ATION) ACTIVE 04/02/2025 [id number] 5 QIRE JOSSE A 2023 90 [facility] ALBUTEROL SO4 3MG/IPRATRO PIUM BR 0.5MG/3ML INHL,3ML INHALE 1 AMPULE BY MOUTH TWICE A DAY NEEDED FOR SHORTNES S OF BREATH OR WHEEZING USING NEBULIZE R. RESPIR ATORY (INHAL ATION) ACTIVE 09/17/2025 [id number] 5 QI,RE JOSSE A 2024 180 [facility] ALBUTEROL/I PRATROPIUM NEB SOLN,INHL INHALE BY MOUTH THREE TIMES A DAY RESPIR ATORY (INHAL ATION) ACTIVE SNOW BUSBY JOSSE A 2023 [facility] APAP 250MG/DM 10MG/GG 100MG/PSEUD EFED 30MG CAP TAKE 1 CAPSULE BY MOUTH PRN ORAL ACTIVE TASIA SMITH 2017 [facility] BREZTRI AEROSPHERE (budesonide /glycopyrro late/formot janny fumarate), 160-9-4.8, HFA AER AD, INHALATION, ASTRAZENECA , 10.7 g AER W/ADAP Active [id number] 4 2023 32.1 Pharmac y Data Transac tion Service Facilit y BUDESONIDE 160/GLYCOPY R 9/FORMOTER 4.8MCG/ACT INHL,ORAL,1 0.7GM INHALE 2 INHALATI ONS BY MOUTH TWICE A DAY RESPIR ATORY (INHAL ATION) ACTIVE QI,RE JOSSE A 2023 [facility] CARVEDILOL 6.25MG TAB TAKE ONE TABLET BY MOUTH TWICE A DAY FOR HIGH BLOOD PRESSURE ORAL ACTIVE 07/22/2025 [id number] 5 QI,RE JOSSE A 2024 180 [facility] CYANOCOBALA MIN TAB TAKE BY MOUTH ORAL ACTIVE Charlotte LOPEZNICOLE M 2006 [facility] ERGOCALCIFE ROL (VIT D) CAP,ORAL TAKE BY MOUTH EVERY DAY ORAL ACTIVE [facility]ORDY [facility] 2006 [facility] FISH OIL 1000MG (500MG DHA/EPA) CAP,ORAL TAKE 1 CAPSULE BY MOUTH EVERY DAY ORAL ACTIVE TASIA SMITH M 2016 [facility] FLUTICASONE 500MCG/SALM ETEROL 50MCG INHL,ORAL,D ISKUS,60 INHALE CONTENTS OF 1 DOSE BY MOUTH EVERY 12 HOURS FOR CONTROLL ER MEDICATI ON FOR ASTHMA (IN THE MORNING AND EVENING) RINSE MOUTH AFTER USE. RESPIR ATORY (INHAL ATION) ACTIVE 07/22/2025 [id number] 5 QI,RE JOSSE A 2024 3 [facility] FUROSEMIDE 40MG TAB TAKE ONE TABLET BY MOUTH EVERY DAY ORAL ACTIVE QI,RE JOSSE A 2023 [facility] LOSARTAN 50MG TAB TAKE ONE TABLET BY MOUTH EVERY DAY FOR HIGH BLOOD PRESSURE ORAL ACTIVE 07/22/2025 [id number] 5 QI,RE JOSSE A 2024 90 [facility] LOSARTAN POTASSIUM (losartan potassium), 50 MG, TABLET, ORAL, [employer], 90 ea. BOTTLE Active [id number] 4 2023 90 Pharmac y Data Transac tion Service Facilit y MULTIVITAMI NS CAP/TAB TAKE 1 TAB/CAP BY MOUTH EVERY DAY ORAL ACTIVE GORDY SAUL,LYNDA K 2006 [facility] NYSTATIN (nystatin), 993029/ML, ORAL SUSP, ORAL, [employer], 473 ml BOTTLE Active [id number] 2023 200 Pharmac y Data Transac tion Service Facilit y OMEPRAZOLE (omeprazole ), 20 MG, CAPSULE DR, ORAL, [employer] 1000 ea. BOTTLE Cancele d [id number] : 2023 0 Pharmac y Data Transac tion Service Facilit y OMEPRAZOLE 20MG CAP,EC TAKE ONE CAPSULE BY MOUTH EVERY MORNING, ON AN EMPTY STOMACH FOR GASTROES OPHAGEAL REFLUX DISEASE ORAL ACTIVE 07/22/2025 [id number] 5 QI,RE JOSSE A 2024 90 [facility] PREDNISONE (PREDNISONE ), 20MG, TABLET, ORAL, [employer] [facility], 100 ea. BOTTLE Active [id number] 2023 18 Pharmac y Data Transac tion Service Facilit y ROSUVASTATI N CALCIUM (rosuvastat in calcium), 40 MG, TABLET, ORAL, [employer] 1000 ea. BOTTLE Active [id number] 4 2023 90 Pharmac y Data Transac tion Service Facilit y SILDENAFIL CITRATE (sildenafil citrate), 100 MG, TABLET, ORAL, [facility], 30 ea. BOTTLE Active [id number] 2023 10 Pharmac y Data Transac tion Service Facilit y SILDENAFIL CITRATE 100MG TAB TAKE ONE TABLET BY MOUTH ONE TIME ORAL ACTIVE QISNOW JOSSE A 2023 [facility] TAMSULOSIN HCL (TAMSULOSIN HCL), 0.4 MG, CAP.SR 24H, ORAL, [employer] [facility], 1000 ea. BOTTLE Cancele d [id number] : 2023 0 Pharmac y Data Transac tion Service Facilit y TAMSULOSIN HCL 0.4MG CAP TAKE TWO CAPSULES BY MOUTH AT BEDTIME FOR BENIGN PROSTATI C HYPERPLA JEFF (BPH) ORAL ACTIVE 07/22/2025 [id number] 5 QIRE JOSSE A 2024 180 [facility] TUMERIC CAP/TAB TAKE BY MOUTH ORAL ACTIVE SNOW BUSBY JOSSE A 2023 [facility] VITAMIN E 400UNT CAP TAKE 1 CAPSULE BY MOUTH EVERY DAY ORAL ACTIVE TASIA SMITH 2016 [facility] Allergies, Adverse Reactions, Alerts Combined list of allergies from [facility] and [facility] facilities. It does not include entries that were removed or entered in error. Substance Category Reaction Severity Reaction type Status Date Reported Comments Source CODEINE Propensity to adverse reactions to drug (finding) Nausea and vomiting active 6 [facility] GUAIFENESIN Propensity to adverse reactions to drug (finding) Airway constrictio n active 3 [facility] Immunizations Combined list of available immunizations from the Department of [facility] and [facility] facilities. 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 Source INFLUENZA, TRIVALENT, ADJUVANTED 2 2018 168 complet ed HISTORICA L INFORMATI ON - FROM OTHER REGISTRY, [facility] INFLUENZA, INJECTABLE, QUADRIVALENT, PRESERVATIVE FREE 2018 150 complet ed [facility] PNEUMOCOCCAL CONJUGATE PCV 13 2018 133 complet ed [facility] INFLUENZA, SEASONAL, INJECTABLE, PRESERVATIVE FREE 1 2018 140 complet ed HISTORICA L INFORMATI ON - FROM OTHER REGISTRY, [facility] PNEUMOCOCCAL POLYSACCHARID E PPV23 2018 33 complet ed HISTORICA L INFORMATI ON - FROM OTHER REGISTRY, [facility] TDAP 2017 115 complet ed [facility] INFLUENZA, INJECTABLE, QUADRIVALENT, PRESERVATIVE FREE 2016 150 complet ed [facility] ZOSTER LIVE 2016 121 complet ed [facility] INFLUENZA, SEASONAL, INJECTABLE, PRESERVATIVE FREE 2015 140 complet ed [facility] INFLUENZA, SEASONAL, INJECTABLE, PRESERVATIVE FREE 2014 140 complet ed [facility] INFLUENZA, UNSPECIFIED FORMULATION 2014 88 complet ed [facility] INFLUENZA, SEASONAL, INJECTABLE, PRESERVATIVE FREE 2013 140 complet ed [facility] INFLUENZA, UNSPECIFIED FORMULATION 2013 88 complet ed [facility] INFLUENZA (HISTORICAL) 2012 88 complet ed [facility] PNEUMOCOCCAL, UNSPECIFIED FORMULATION 2012 109 complet ed [facility] PNEUMOCOCCAL POLYSACCHARID E PPV23 1 2012 33 complet ed HISTORICA L INFORMATI ON - FROM OTHER REGISTRY, [facility] INFLUENZA, UNSPECIFIED FORMULATION 2011 88 complet ed [facility] INFLUENZA, UNSPECIFIED FORMULATION 2010 88 complet ed [facility] INFLUENZA, UNSPECIFIED FORMULATION 2009 88 complet ed [facility] TD(ADULT) UNSPECIFIED FORMULATION 2006 139 complet ed [facility] TETANUS TOXOID, UNSPECIFIED FORMULATION 2006 112 complet ed [facility] Results Combined list of recent chemistry, hematology and other laboratory results from [facility] and [facility], ranging from 15 months to all on record, depending upon the facility. Order Name Results Value Reference Range Date Interpretation Specimen Comments Source TSH THYROTROPI N [UNITS/VOL UME] IN SERUM OR PLASMA BY DETECTION LIMIT <= 0.005 MIU/L 2.857 u[IU]/mL 0.360 - 4.500 04/11 Specimen Type: PLASMA No comment entered. Ordering Provider: ENRIQUE BUSBY CCA A Report Released Date/Time: October 11, 2023 01:17 PM Reporting Lab: [place] [id number] Performing Lab: [place] [phone] [facility] PROSTATE SPECIFIC ANTIGEN PROSTATE SPECIFIC AG [MASS/VOLU ME] IN SERUM OR PLASMA 3.09 ng/mL <4.00 - 4.00 04/11 Specimen Type: SERUM No comment entered. Ordering Provider: ENRIQUE BUSBY CCA Report Released Date/Time: October 11, 2023 01:17 PM Reporting Lab: [place] [phone] Performing Lab: [place] [phone] [facility] LIPID PROFILE CHOLESTERO L [MASS/VOLU ME] IN SERUM OR PLASMA 190 mg/dL <199 - 199 04/11 Specimen Type: PLASMA Comment: DLDLREF RANGE: NEAR OR ABOVE OPTIMAL: 100-129 mg/dL BORDERLINE DLDLHIGH: 130-159 mg/dL HIGH: 160-189 mg/dL VERY HIGH: >=190 TRIG REF RANGE: BORDERLINE HIGH: 150-199 mg/dL HIGH: 200-499 mg/dL TRIG VERY HIGH: >=500 mg/dL CREA eGFR was calculated using the CKD-EPI 2020 equation. CHOL REF RANGE: BORDERLINE HIGH: 200-239 mg/dL HIGH: >=240 mg/dL Ordering Provider: ENRIQUE BUSBY CCA Report Released Date/Time: October 11, 2023 01:17 PM Reporting Lab: [place] [phone] Performing Lab: [place] [id number] [place] [address] LIPID PROFILE CHOLESTERO L IN LDL [MASS/VOLU ME] IN SERUM OR PLASMA BY DIRECT ASSAY 149 mg/dL <99 - 99 04/11 H Specimen Type: PLASMA Comment: DLDLREF RANGE: NEAR OR ABOVE OPTIMAL: 100-129 mg/dL BORDERLINE DLDLHIGH: 130-159 mg/dL HIGH: 160-189 mg/dL VERY HIGH: >=190 TRIG REF RANGE: BORDERLINE HIGH: 150-199 mg/dL HIGH: 200-499 mg/dL TRIG VERY HIGH: >=500 mg/dL CREA eGFR was calculated using the CKD-EPI 2020 equation. CHOL REF RANGE: BORDERLINE HIGH: 200-239 mg/dL HIGH: >=240 mg/dL Ordering Provider: ENRIQUE BUSBY CCA Report Released Date/Time: October 11, 2023 01:17 PM Reporting Lab: [place] [phone] Performing Lab: [place] [phone] [place] [address] LIPID PROFILE CHOLESTERO L IN HDL [MASS/VOLU ME] IN SERUM OR PLASMA 35 mg/dL 60 04/11 L Specimen Type: PLASMA Comment: DLDLREF RANGE: NEAR OR ABOVE OPTIMAL: 100-129 mg/dL BORDERLINE DLDLHIGH: 130-159 mg/dL HIGH: 160-189 mg/dL VERY HIGH: >=190 TRIG REF RANGE: BORDERLINE HIGH: 150-199 mg/dL HIGH: 200-499 mg/dL TRIG VERY HIGH: >=500 mg/dL CREA eGFR was calculated using the CKD-EPI 2020 equation. CHOL REF RANGE: BORDERLINE HIGH: 200-239 mg/dL HIGH: >=240 mg/dL Ordering Provider: ENRIQUE BUSBY CCA Report Released Date/Time: October 11, 2023 01:17 PM Reporting Lab: [place] [phone] Performing Lab: [place] [phone] [facility] LIPID PROFILE TRIGLYCERI DE [MASS/VOLU ME] IN SERUM OR PLASMA 156 mg/dL <149 - 149 04/11 H Specimen Type: PLASMA Comment: DLDLREF RANGE: NEAR OR ABOVE OPTIMAL: 100-129 mg/dL BORDERLINE DLDLHIGH: 130-159 mg/dL HIGH: 160-189 mg/dL VERY HIGH: >=190 TRIG REF RANGE: BORDERLINE HIGH: 150-199 mg/dL HIGH: 200-499 mg/dL TRIG VERY HIGH: >=500 mg/dL CREA eGFR was calculated using the CKD-EPI 2020 equation. CHOL REF RANGE: BORDERLINE HIGH: 200-239 mg/dL HIGH: >=240 mg/dL Ordering Provider: ENRIQUE BUSBY CCA Report Released Date/Time: October 11, 2023 01:17 PM Reporting Lab: [place] [phone] Performing Lab: [place] [phone] [place] [address] HEMOGLOB IN A1C HEMOGLOBIN A1C/HEMOGL OBIN.TOTAL IN BLOOD 6.2 3.6 - 5.7 04/11 H Specimen Type: BLOOD Comment: Values obtained from A1C measurement s can vary. For typical A1C assays, a reported value of 7.0 could actually be between 6.72 and 7.28 if measured by a reference method. A reported value of 9.0 could actually be between 8.73 and 9.27. Ref: http://www. ngsp.org/CA Pdata.asp Ordering Provider: ENRIQUE BUSBY CCA A Report Released Date/Time: October 11, 2023 01:17 PM Reporting Lab: [place] [phone] Performing Lab: [address] URINALYS IS SPECIFIC GRAVITY OF URINE 1.009 1.016 - 1.022 04/11 L Specimen Type: URINE No comment entered. Ordering Provider: ENRIQUE BUSBY CCA Report Released Date/Time: October 11, 2023 01:17 PM Reporting Lab: [address] [phone] Performing Lab: [address] [phone] [facility] URINALYS IS GLUCOSE [MASS/VOLU ME] IN URINE BY TEST STRIP Negative mg/dL 04/11 Specimen Type: URINE No comment entered. Ordering Provider: ENRIQUE BUSBY CCA A Report Released Date/Time: October 11, 2023 01:17 PM Reporting Lab: [address] [phone] Performing Lab: [address] [phone] [facility] URINALYS IS PROTEIN [MASS/VOLU ME] IN URINE BY TEST STRIP Negative mg/dL 04/11 Specimen Type: URINE No comment entered. Ordering Provider: ENRIQUE BUSBY CCA A Report Released Date/Time: October 11, 2023 01:17 PM Reporting Lab: [address] [phone] Performing Lab: [address] [phone] [facility] URINALYS IS PH OF URINE BY TEST STRIP 6.5 5.0 - 8.0 04/11 Specimen Type: URINE No comment entered. Ordering Provider: ENRIQUE BUSBY CCA A Report Released Date/Time: October 11, 2023 01:17 PM Reporting Lab: [address] [phone] Performing Lab: [address] [phone] [facility] URINALYS IS NITRITE [PRESENCE] IN URINE BY TEST STRIP Negative 04/11 Specimen Type: URINE No comment entered. Ordering Provider: ENRIQUE BUSBY CCA A Report Released Date/Time: October 11, 2023 01:17 PM Reporting Lab: [address] [phone] Performing Lab: [address] [phone] [facility] URINALYS IS LEUKOCYTE ESTERASE [PRESENCE] IN URINE BY TEST STRIP Negative 04/11 Specimen Type: URINE No comment entered. Ordering Provider: ENRIQUE BUSBY CCA A Report Released Date/Time: October 11, 2023 01:17 PM Reporting Lab: [place] [phone] Performing Lab: [place] [phone] [facility] URINALYS IS CLARITY OF URINE Clear 04/11 Specimen Type: URINE No comment entered. Ordering Provider: ENRIQUE BUSBY CCA A Report Released Date/Time: October 11, 2023 01:17 PM Reporting Lab: [place] [phone] Performing Lab: [place] [phone] [facility] URINALYS IS BILIRUBIN. TOTAL [MASS/VOLU ME] IN URINE BY TEST STRIP Negative mg/dL - 0.4 04/11 Specimen Type: URINE No comment entered. Ordering Provider: ENRIQUE BUSBY CCA A Report Released Date/Time: October 11, 2023 01:17 PM Reporting Lab: [place] [phone] Performing Lab: [place] [phone] URINALYS IS HEMOGLOBIN [PRESENCE] IN URINE BY TEST STRIP Negative mg/dL <0.05 - 0.05 04/11 Specimen Type: URINE No comment entered. Ordering Provider: ENRIQUE BUSBY CCA A Report Released Date/Time: October 11, 2023 01:17 PM Reporting Lab: [place] [phone] Performing Lab: [place] [phone] [place] [address] URINALYS IS UROBILINOG EN [MASS/VOLU ME] IN URINE Negative mg/dL - 1 04/11 Specimen Type: URINE No comment entered. Ordering Provider: ENRIQUE BUSBY CCA A Report Released Date/Time: October 11, 2023 01:17 PM Reporting Lab: [place] [phone] Performing Lab: [place] [phone] [place] [address] URINALYS IS KETONES [MASS/VOLU ME] IN URINE BY TEST STRIP Negative mg/dL - 9 04/11 Specimen Type: URINE No comment entered. Ordering Provider: ENRIQUE BUSBY CCA A Report Released Date/Time: October 11, 2023 01:17 PM Reporting Lab: [place] [id number] Performing Lab: [address] URINALYS IS COLOR OF URINE Light-Ye llow [none] 04/11 Specimen Type: URINE No comment entered. Ordering Provider: ENRIQUE BUSBY CCA Report Released Date/Time: October 11, 2023 01:17 PM Reporting Lab: [place] [phone] Performing Lab: [place] [phone] [place] [address] COMPREHE NSIVE METABOLI C PANEL ALBUMIN [MASS/VOLU ME] IN SERUM OR PLASMA 4.0 g/dL 3.2 - 4.6 04/11 Specimen Type: PLASMA Comment: DLDLREF RANGE: NEAR OR ABOVE OPTIMAL: 100-129 mg/dL BORDERLINE DLDLHIGH: 130-159 mg/dL HIGH: 160-189 mg/dL VERY HIGH: >=190 TRIG REF RANGE: BORDERLINE HIGH: 150-199 mg/dL HIGH: 200-499 mg/dL TRIG VERY HIGH: >=500 mg/dL CREA eGFR was calculated using the CKD-EPI 2020 equation. CHOL REF RANGE: BORDERLINE HIGH: 200-239 mg/dL HIGH: >=240 mg/dL Ordering Provider: ENRIQUE BUSBY CCA A Report Released Date/Time: October 11, 2023 01:17 PM Reporting Lab: [place] [id number] Performing Lab: [place] [phone] COMPREHE NSIVE METABOLI C PANEL ALKALINE PHOSPHATAS E [ENZYMATIC ACTIVITY/V OLUME] IN SERUM OR PLASMA 63 U/L 40 - 150 04/11 Specimen Type: PLASMA Comment: DLDLREF RANGE: NEAR OR ABOVE OPTIMAL: 100-129 mg/dL BORDERLINE DLDLHIGH: 130-159 mg/dL HIGH: 160-189 mg/dL VERY HIGH: >=190 TRIG REF RANGE: BORDERLINE HIGH: 150-199 mg/dL HIGH: 200-499 mg/dL TRIG VERY HIGH: >=500 mg/dL CREA eGFR was calculated using the CKD-EPI 2020 equation. CHOL REF RANGE: BORDERLINE HIGH: 200-239 mg/dL HIGH: >=240 mg/dL Ordering Provider: ENRIQUE BUSBY CCA Report Released Date/Time: October 11, 2023 01:17 PM Reporting Lab: [place] [phone] Performing Lab: [place] [phone] [facility] NSIVE METABOLI C PANEL ALANINE AMINOTRANS FERASE [ENZYMATIC ACTIVITY/V OLUME] IN SERUM OR PLASMA 42 U/L <55 - 55 04/11 Specimen Type: PLASMA Comment: DLDLREF RANGE: NEAR OR ABOVE OPTIMAL: 100-129 mg/dL BORDERLINE DLDLHIGH: 130-159 mg/dL HIGH: 160-189 mg/dL VERY HIGH: >=190 TRIG REF RANGE: BORDERLINE HIGH: 150-199 mg/dL HIGH: 200-499 mg/dL TRIG VERY HIGH: >=500 mg/dL CREA eGFR was calculated using the CKD-EPI 2020 equation. CHOL REF RANGE: BORDERLINE HIGH: 200-239 mg/dL HIGH: >=240 mg/dL Ordering Provider: ENRIQUE BUSBY CCA Report Released Date/Time: October 11, 2023 01:17 PM Reporting Lab: [place] [phone] Performing Lab: [place] [phone] [place] [address] NSIVE METABOLI C PANEL ASPARTATE AMINOTRANS FERASE [ENZYMATIC ACTIVITY/V OLUME] IN SERUM OR PLASMA 35 U/L 5 - 34 04/11 H Specimen Type: PLASMA Comment: DLDLREF RANGE: NEAR OR ABOVE OPTIMAL: 100-129 mg/dL BORDERLINE DLDLHIGH: 130-159 mg/dL HIGH: 160-189 mg/dL VERY HIGH: >=190 TRIG REF RANGE: BORDERLINE HIGH: 150-199 mg/dL HIGH: 200-499 mg/dL TRIG VERY HIGH: >=500 mg/dL CREA eGFR was calculated using the CKD-EPI 2020 equation. CHOL REF RANGE: BORDERLINE HIGH: 200-239 mg/dL HIGH: >=240 mg/dL Ordering Provider: ENRIQUE BUSBY CCA Report Released Date/Time: October 11, 2023 01:17 PM Reporting Lab: [place] [phone] Performing Lab: [place] [phone] [facility] COMPREHE NSIVE METABOLI C PANEL UREA NITROGEN [MASS/VOLU ME] IN SERUM OR PLASMA 10 mg/dL 8.4 - 25.7 04/11 Specimen Type: PLASMA Comment: DLDLREF RANGE: NEAR OR ABOVE OPTIMAL: 100-129 mg/dL BORDERLINE DLDLHIGH: 130-159 mg/dL HIGH: 160-189 mg/dL VERY HIGH: >=190 TRIG REF RANGE: BORDERLINE HIGH: 150-199 mg/dL HIGH: 200-499 mg/dL TRIG VERY HIGH: >=500 mg/dL CREA eGFR was calculated using the CKD-EPI 2020 equation. CHOL REF RANGE: BORDERLINE HIGH: 200-239 mg/dL HIGH: >=240 mg/dL Ordering Provider: ENRIQUE BUSBY CCA Report Released Date/Time: October 11, 2023 01:17 PM Reporting Lab: [place] [phone] Performing Lab: [place] [phone] [facility] COMPREHE NSIVE METABOLI C PANEL CALCIUM [MASS/VOLU ME] IN SERUM OR PLASMA 9.0 mg/dL 8.8 - 10.0 04/11 Specimen Type: PLASMA Comment: DLDLREF RANGE: NEAR OR ABOVE OPTIMAL: 100-129 mg/dL BORDERLINE DLDLHIGH: 130-159 mg/dL HIGH: 160-189 mg/dL VERY HIGH: >=190 TRIG REF RANGE: BORDERLINE HIGH: 150-199 mg/dL HIGH: 200-499 mg/dL TRIG VERY HIGH: >=500 mg/dL CREA eGFR was calculated using the CKD-EPI 2020 equation. CHOL REF RANGE: BORDERLINE HIGH: 200-239 mg/dL HIGH: >=240 mg/dL Ordering Provider: ENRIQUE BUSBY CCA Report Released Date/Time: October 11, 2023 01:17 PM Reporting Lab: [address] [phone] Performing Lab: [place] [phone] [facility] COMPREHE NSIVE METABOLI C PANEL CREATININE [MASS/VOLU ME] IN SERUM OR PLASMA 0.9 mg/dL 0.72 - 1.25 04/11 Specimen Type: PLASMA Comment: DLDLREF RANGE: NEAR OR ABOVE OPTIMAL: 100-129 mg/dL BORDERLINE DLDLHIGH: 130-159 mg/dL HIGH: 160-189 mg/dL VERY HIGH: >=190 TRIG REF RANGE: BORDERLINE HIGH: 150-199 mg/dL HIGH: 200-499 mg/dL TRIG VERY HIGH: >=500 mg/dL CREA eGFR was calculated using the CKD-EPI 2020 equation. CHOL REF RANGE: BORDERLINE HIGH: 200-239 mg/dL HIGH: >=240 mg/dL Ordering Provider: ENRIQUE BUSBY CCA A Report Released Date/Time: October 11, 2023 01:17 PM Reporting Lab: [place] [phone] Performing Lab: [place] [phone] [place] [address] COMPREHE NSIVE METABOLI C PANEL CARBON DIOXIDE, TOTAL [MOLES/VOL UME] IN SERUM OR PLASMA 21 mmol/L 23 - 31 04/11 L Specimen Type: PLASMA Comment: DLDLREF RANGE: NEAR OR ABOVE OPTIMAL: 100-129 mg/dL BORDERLINE DLDLHIGH: 130-159 mg/dL HIGH: 160-189 mg/dL VERY HIGH: >=190 TRIG REF RANGE: BORDERLINE HIGH: 150-199 mg/dL HIGH: 200-499 mg/dL TRIG VERY HIGH: >=500 mg/dL CREA eGFR was calculated using the CKD-EPI 2020 equation. CHOL REF RANGE: BORDERLINE HIGH: 200-239 mg/dL HIGH: >=240 mg/dL Ordering Provider: ENRIQUE BUSBY CCA Report Released Date/Time: October 11, 2023 01:17 PM Reporting Lab: [place] [id number] Performing Lab: [place] [id number] [facility] [place] COMPREHE NSIVE METABOLI C PANEL GLUCOSE [MASS/VOLU ME] IN SERUM OR PLASMA 120 mg/dL 82 - 115 04/11 H Specimen Type: PLASMA Comment: DLDLREF RANGE: NEAR OR ABOVE OPTIMAL: 100-129 mg/dL BORDERLINE DLDLHIGH: 130-159 mg/dL HIGH: 160-189 mg/dL VERY HIGH: >=190 TRIG REF RANGE: BORDERLINE HIGH: 150-199 mg/dL HIGH: 200-499 mg/dL TRIG VERY HIGH: >=500 mg/dL CREA eGFR was calculated using the CKD-EPI 2020 equation. CHOL REF RANGE: BORDERLINE HIGH: 200-239 mg/dL HIGH: >=240 mg/dL Ordering Provider: ENRIQUE BUSBY CCA Report Released Date/Time: October 11, 2023 01:17 PM Reporting Lab: [place] [phone] Performing Lab: [place] [phone] [facility] [place] COMPREHE NSIVE METABOLI C PANEL PROTEIN [MASS/VOLU ME] IN SERUM OR PLASMA 6.2 g/dL 6.4 - 8.3 04/11 L Specimen Type: PLASMA Comment: DLDLREF RANGE: NEAR OR ABOVE OPTIMAL: 100-129 mg/dL BORDERLINE DLDLHIGH: 130-159 mg/dL HIGH: 160-189 mg/dL VERY HIGH: >=190 TRIG REF RANGE: BORDERLINE HIGH: 150-199 mg/dL HIGH: 200-499 mg/dL TRIG VERY HIGH: >=500 mg/dL CREA eGFR was calculated using the CKD-EPI 2020 equation. CHOL REF RANGE: BORDERLINE HIGH: 200-239 mg/dL HIGH: >=240 mg/dL Ordering Provider: ENRIQUE BUSBY CCA Report Released Date/Time: October 11, 2023 01:17 PM Reporting Lab: [place] [phone] Performing Lab: [place] [phone] [facility] [place] COMPREH NSIVE METABOLI C PANEL SODIUM [MOLES/VOL UME] IN SERUM OR PLASMA 137 mmol/L 136 - 145 04/11 Specimen Type: PLASMA Comment: DLDLREF RANGE: NEAR OR ABOVE OPTIMAL: 100-129 mg/dL BORDERLINE DLDLHIGH: 130-159 mg/dL HIGH: 160-189 mg/dL VERY HIGH: >=190 TRIG REF RANGE: BORDERLINE HIGH: 150-199 mg/dL HIGH: 200-499 mg/dL TRIG VERY HIGH: >=500 mg/dL CREA eGFR was calculated using the CKD-EPI 2020 equation. CHOL REF RANGE: BORDERLINE HIGH: 200-239 mg/dL HIGH: >=240 mg/dL Ordering Provider: ENRIQUE BUSBY CCA A Report Released Date/Time: October 11, 2023 01:17 PM Reporting Lab: [place] [phone] Performing Lab: [place] [phone] [facility] [place] COMPREHE NSIVE METABOLI C PANEL CHLORIDE [MOLES/VOL UME] IN SERUM OR PLASMA 108 mmol/L 98 - 107 04/11 H Specimen Type: PLASMA Comment: DLDLREF RANGE: NEAR OR ABOVE OPTIMAL: 100-129 mg/dL BORDERLINE DLDLHIGH: 130-159 mg/dL HIGH: 160-189 mg/dL VERY HIGH: >=190 TRIG REF RANGE: BORDERLINE HIGH: 150-199 mg/dL HIGH: 200-499 mg/dL TRIG VERY HIGH: >=500 mg/dL CREA eGFR was calculated using the CKD-EPI 2020 equation. CHOL REF RANGE: BORDERLINE HIGH: 200-239 mg/dL HIGH: >=240 mg/dL Ordering Provider: ENRIQUE BUSBY CCA Report Released Date/Time: October 11, 2023 01:17 PM Reporting Lab: [address] [address] Performing Lab: [place] [phone] [facility] [place] COMPREHE NSIVE METABOLI C PANEL BILIRUBIN. TOTAL [MASS/VOLU ME] IN SERUM OR PLASMA 0.6 mg/dL 0.2 - 1.2 04/11 Specimen Type: PLASMA Comment: DLDLREF RANGE: NEAR OR ABOVE OPTIMAL: 100-129 mg/dL BORDERLINE DLDLHIGH: 130-159 mg/dL HIGH: 160-189 mg/dL VERY HIGH: >=190 TRIG REF RANGE: BORDERLINE HIGH: 150-199 mg/dL HIGH: 200-499 mg/dL TRIG VERY HIGH: >=500 mg/dL CREA eGFR was calculated using the CKD-EPI 2020 equation. CHOL REF RANGE: BORDERLINE HIGH: 200-239 mg/dL HIGH: >=240 mg/dL Ordering Provider: ENRIQUE BUSBY CCA Report Released Date/Time: October 11, 2023 01:17 PM Reporting Lab: [address] [address] Performing Lab: [place] [phone] [facility] [place] COMPREHE NSIVE METABOLI C PANEL POTASSIUM [MOLES/VOL UME] IN SERUM OR PLASMA 3.9 mmol/L 3.5 - 5.1 04/11 Specimen Type: PLASMA Comment: DLDLREF RANGE: NEAR OR ABOVE OPTIMAL: 100-129 mg/dL BORDERLINE DLDLHIGH: 130-159 mg/dL HIGH: 160-189 mg/dL VERY HIGH: >=190 TRIG REF RANGE: BORDERLINE HIGH: 150-199 mg/dL HIGH: 200-499 mg/dL TRIG VERY HIGH: >=500 mg/dL CREA eGFR was calculated using the CKD-EPI 2020 equation. CHOL REF RANGE: BORDERLINE HIGH: 200-239 mg/dL HIGH: >=240 mg/dL Ordering Provider: ENRIQUE BUSBY CCA Report Released Date/Time: October 11, 2023 01:17 PM Reporting Lab: [place] [phone] Performing Lab: [place] [phone] [place] [address] COMPREHE NSIVE METABOLI C PANEL ANION GAP IN SERUM OR PLASMA 12.0 mmol/L - 04/11 Specimen Type: PLASMA Comment: DLDLREF RANGE: NEAR OR ABOVE OPTIMAL: 100-129 mg/dL BORDERLINE DLDLHIGH: 130-159 mg/dL HIGH: 160-189 mg/dL VERY HIGH: >=190 TRIG REF RANGE: BORDERLINE HIGH: 150-199 mg/dL HIGH: 200-499 mg/dL TRIG VERY HIGH: >=500 mg/dL CREA eGFR was calculated using the CKD-EPI 2020 equation. CHOL REF RANGE: BORDERLINE HIGH: 200-239 mg/dL HIGH: >=240 mg/dL Ordering Provider: ENRIQUE BUSBY CCA Report Released Date/Time: October 11, 2023 01:17 PM Reporting Lab: [place] [phone] Performing Lab: [place] [phone] [facility] [place] COMPREH NSIVE METABOLI C PANEL GLOMERULAR FILTRATION RATE/1.73 SQ M.PREDICTE D [VOLUME RATE/AREA] IN SERUM, PLASMA OR BLOOD BY CREATININE -BASED FORMULA (CKD-EPI 2020) 91.0 mL/min 04/11 Specimen Type: PLASMA Comment: DLDLREF RANGE: NEAR OR ABOVE OPTIMAL: 100-129 mg/dL BORDERLINE DLDLHIGH: 130-159 mg/dL HIGH: 160-189 mg/dL VERY HIGH: >=190 TRIG REF RANGE: BORDERLINE HIGH: 150-199 mg/dL HIGH: 200-499 mg/dL TRIG VERY HIGH: >=500 mg/dL CREA eGFR was calculated using the CKD-EPI 2020 equation. CHOL REF RANGE: BORDERLINE HIGH: 200-239 mg/dL HIGH: >=240 mg/dL Ordering Provider: ENRIQUE BUSBY CCA A Report Released Date/Time: October 11, 2023 01:17 PM Reporting Lab: [address] [address] Performing Lab: [place] [phone] [facility] [place] CBC LEUKOCYTES [#/VOLUME] IN BLOOD BY AUTOMATED COUNT 6.6 10*3/uL 3.6 - 11.0 04/11 Specimen Type: BLOOD No comment entered. Ordering Provider: ENRIQUE BUSBY CCA A Report Released Date/Time: October 11, 2023 01:17 PM Reporting Lab: [address] [address] Performing Lab: [place] [phone] [facility] [place] CBC ERYTHROCYT ES [#/VOLUME] IN BLOOD BY AUTOMATED COUNT 4.59 10*6/uL 4.47 - 5.83 04/11 Specimen Type: BLOOD No comment entered. Ordering Provider: ENRIQUE BUSBY CCA A Report Released Date/Time: October 11, 2023 01:17 PM Reporting Lab: [address] [address] Performing Lab: [place] [phone] [facility] [place] CBC HEMOGLOBIN [MASS/VOLU ME] IN BLOOD 13.6 g/dL 13.6 - 17.4 04/11 Specimen Type: BLOOD No comment entered. Ordering Provider: ENRIQUE BUSBY CCA A Report Released Date/Time: October 11, 2023 01:17 PM Reporting Lab: [address] [address] Performing Lab: [place] [phone] [facility] [place] CBC HEMATOCRIT [VOLUME FRACTION] OF BLOOD BY AUTOMATED COUNT 40.5 40.0 - 51.0 04/11 Specimen Type: BLOOD No comment entered. Ordering Provider: ENRIQUE BUSBY CCA A Report Released Date/Time: October 11, 2023 01:17 PM Reporting Lab: [address] [address] Performing Lab: [address] [address] [facility] [place] CBC MCV [ENTITIC VOLUME] BY AUTOMATED COUNT 88.2 fL 80.0 - 96.0 04/11 Specimen Type: BLOOD No comment entered. Ordering Provider: ENRIQUE BUSBY CCA A Report Released Date/Time: October 11, 2023 01:17 PM Reporting Lab: [address] [address] Performing Lab: [address] [address] [facility] [place] CBC MCH [ENTITIC MASS] BY AUTOMATED COUNT 29.7 pg 27.0 - 31.0 04/11 Specimen Type: BLOOD No comment entered. Ordering Provider: ENRIQUE BUSBY CCA A Report Released Date/Time: October 11, 2023 01:17 PM Reporting Lab: [address] [address] Performing Lab: [place] [phone] [facility] [place] CBC MCHC [MASS/VOLU ME] BY AUTOMATED COUNT 33.6 g/dL 31.5 - 36.5 04/11 Specimen Type: BLOOD No comment entered. Ordering Provider: ENRIQUE BUSBY CCA A Report Released Date/Time: October 11, 2023 01:17 PM Reporting Lab: [address] [address] Performing Lab: [address] [address] [facility] [place] CBC PLATELETS [#/VOLUME] IN BLOOD BY AUTOMATED COUNT 166 10*3/uL 150 - 400 04/11 Specimen Type: BLOOD No comment entered. Ordering Provider: ENRIQUE BUSBY CCA A Report Released Date/Time: October 11, 2023 01:17 PM Reporting Lab: [address] [address] Performing Lab: [address] [address] [facility] [place] CBC LYMPHOCYTE S/100 LEUKOCYTES IN BLOOD BY AUTOMATED COUNT 25.1 21.0 - 51.0 04/11 Specimen Type: BLOOD No comment entered. Ordering Provider: ENRIQUE BUSBY CCA A Report Released Date/Time: October 11, 2023 01:17 PM Reporting Lab: [address] [address] Performing Lab: [place] [phone] [facility] [place] CBC MONOCYTES/ 100 LEUKOCYTES IN BLOOD BY AUTOMATED COUNT 10.2 4.0 - 8.0 04/11 H Specimen Type: BLOOD No comment entered. Ordering Provider: ENRIQUE BUSBY CCA A Report Released Date/Time: October 11, 2023 01:17 PM Reporting Lab: [address] [address] Performing Lab: [place] [phone] [facility] [place] CBC NUCLEATED ERYTHROCYT ES/100 LEUKOCYTES [RATIO] IN BLOOD BY MANUAL COUNT 0.1 /100{WBC s} 04/11 Specimen Type: BLOOD No comment entered. Ordering Provider: ENRIQUE BUSBY CCA A Report Released Date/Time: October 11, 2023 01:17 PM Reporting Lab: [address] [address] Performing Lab: [place] [phone] [facility] [place] CBC ERYTHROCYT E DISTRIBUTI ON WIDTH [RATIO] BY AUTOMATED COUNT 15.6 11.2 - 15.8 04/11 Specimen Type: BLOOD No comment entered. Ordering Provider: ENRIQUE BUSBY CCA A Report Released Date/Time: October 11, 2023 01:17 PM Reporting Lab: [address] [address] Performing Lab: [place] [phone] [facility] [place] CBC NEUTROPHIL S/100 LEUKOCYTES IN BLOOD BY AUTOMATED COUNT 54.5 54.0 - 78.0 04/11 Specimen Type: BLOOD No comment entered. Ordering Provider: ENRIQUE BUSBY CCA A Report Released Date/Time: October 11, 2023 01:17 PM Reporting Lab: [address] [address] Performing Lab: [address] [address] [facility] [place] CBC EOSINOPHIL S/100 LEUKOCYTES IN BLOOD BY AUTOMATED COUNT 9.6 0.0 - 3.0 04/11 H Specimen Type: BLOOD No comment entered. Ordering Provider: ENRIQUE BUSBY CCA A Report Released Date/Time: October 11, 2023 01:17 PM Reporting Lab: [address] [address] Performing Lab: [address] [address] [facility] [place] CBC BASOPHILS/ 100 LEUKOCYTES IN BLOOD BY AUTOMATED COUNT 0.6 0.0 - 3.0 04/11 Specimen Type: BLOOD No comment entered. Ordering Provider: ENRIQUE BUSBY CCA A Report Released Date/Time: October 11, 2023 01:17 PM Reporting Lab: [address] [address] Performing Lab: [place] [phone] [facility] [place] CBC LYMPHOCYTE S [#/VOLUME] IN BLOOD BY AUTOMATED COUNT 1.7 10*3/uL 0.8 - 5.0 04/11 Specimen Type: BLOOD No comment entered. Ordering Provider: ENRIQUE BUSBY CCA A Report Released Date/Time: October 11, 2023 01:17 PM Reporting Lab: [address] [address] Performing Lab: [place] [phone] [facility] [place] CBC NEUTROPHIL S [#/VOLUME] IN BLOOD 3.6 10*3/uL 1.9 - 8.6 04/11 Specimen Type: BLOOD No comment entered. Ordering Provider: ENRIQUE BUSBY CCA A Report Released Date/Time: October 11, 2023 01:17 PM Reporting Lab: [address] [address] Performing Lab: [address] [address] [facility] [place] CBC BASOPHILS [#/VOLUME] IN BLOOD BY AUTOMATED COUNT 0.0 10*3/uL 0.0 - 0.3 04/11 Specimen Type: BLOOD No comment entered. Ordering Provider: ENRIQUE BUSBY CCA A Report Released Date/Time: October 11, 2023 01:17 PM Reporting Lab: [place] [phone] Performing Lab: [place] [phone] [place] [address] CBC MONOCYTES [#/VOLUME] IN BLOOD BY AUTOMATED COUNT 0.7 10*3/uL 0.1 - 0.9 04/11 Specimen Type: BLOOD No comment entered. Ordering Provider: ENRIQUE BUSBY CCA A Report Released Date/Time: October 11, 2023 01:17 PM Reporting Lab: [place] [phone] Performing Lab: [place] [phone] CBC EOSINOPHIL S [#/VOLUME] IN BLOOD BY AUTOMATED COUNT 0.6 10*3/uL 0.0 - 0.3 04/11 H Specimen Type: BLOOD No comment entered. Ordering Provider: ENRIQUE BUSBY CCA A Report Released Date/Time: October 11, 2023 01:17 PM Reporting Lab: [place] [phone] Performing Lab: [place] [phone] CBC PLATELET MEAN VOLUME [ENTITIC VOLUME] IN BLOOD BY AUTOMATED COUNT 9.0 fL 7.4 - 11.4 04/11 Specimen Type: BLOOD No comment entered. Ordering Provider: ENRIQUE BUSBY CCA A Report Released Date/Time: October 11, 2023 01:17 PM Reporting Lab: [place] [phone] Performing Lab: [place] [phone] PROSTATE SPECIFIC ANTIGEN PROSTATE SPECIFIC AG [MASS/VOLU ME] IN SERUM OR PLASMA 2.10 ng/mL 0.00 - 4.00 10/03 Specimen Type: SERUM No comment entered. Ordering Provider: ENRIQUE BUSBY CCA A Report Released Date/Time: October 03, 2023 03:03 PM Reporting Lab: [place] [phone] Performing Lab: [place] [phone] [facility] [place] HEMOGLOB IN A1C HEMOGLOBIN A1C/HEMOGL OBIN.TOTAL IN BLOOD 5.8 3.6 - 5.7 10/03 H Specimen Type: BLOOD Comment: Values obtained from A1C measurement s can vary. For typical A1C assays, a reported value of 7.0 could actually be between 6.72 and 7.28 if measured by a reference method. A reported value of 9.0 could actually be between 8.73 and 9.27. Ref: http://www. ngsp.org/CA Pdata.asp Ordering Provider: ENRIQUE BUSBY CCA Report Released Date/Time: October 03, 2023 03:03 PM Reporting Lab: [place] [phone] Performing Lab: [place] [phone] TSH THYROTROPI N [UNITS/VOL UME] IN SERUM OR PLASMA BY DETECTION LIMIT <= 0.005 MIU/L 3.271 u[IU]/mL 0.55 - 4.78 10/03 Specimen Type: PLASMA No comment entered. Ordering Provider: ENRIQUE BUSBY CCA Report Released Date/Time: October 03, 2023 03:03 PM Reporting Lab: [place] [phone] Performing Lab: [place] [phone] Vital Signs Combined list of inpatient and outpatient Vital Signs from Department of Defense and Veterans Affairs, ranging from 12 months to all on record, depending upon the facility. Vital Sign Value Date Comments Source SYSTOLIC BLOOD PRESSURE 133 04/18/2024 09:31:22 [facility] [place] DIASTOLIC BLOOD PRESSURE 80 04/18/2024 09:31:22 [facility] [place] PULSE OXIMETRY 97 04/18/2024 09:31:22 [facility] WEIGHT 241 04/18/2024 09:31:22 [facility] BMI 37 kg/m2 04/18/2024 09:31:22 [facility] PAIN 0 04/18/2024 09:31:22 [facility] TEMPERATURE 97.5 04/18/2024 09:31:22 [facility] PULSE 70 04/18/2024 09:31:22 [facility] RESPIRATION 16 04/18/2024 09:31:22 [facility] PULSE OXIMETRY 96 04/01/2024 11:34:41 [facility] Encounters Combined list of: 1) Encounters from Department of Veterans Affairs facilities going backup to the last 18 months, not all [place] inpatient encounters are included; 2) Encounters from the Department of Defense facilities going backup to 280 months. Location Location Details Encounter Type Encounter Number Reason For Visit Attending Provider ADM Date DC Date Status Disposition Source [facility] Outpatient Encounter [id number] 07/18 [facility] Outpatient Encounter [id number] 10/10 [facility] OFFICE O/P EST MOD 30 MIN [id number] Diagnos is: ICD-10- CM I10 Essenti al (primar y) hyperte nsion JACE BUSBY 10/10 [facility] OFF[facility] O/P NEW LOW 30 MIN [id number] Diagnos is: ICD-10- CM G47.30 Sleep apnea, unspeci JAYNE Castaneda 04/01 [facility] FEE [id number] Diagnos is: ICD-10- CM Z13.9 Encount er for screeni ng, unspeci SERA Estevez 04/01 [facility] Outpatient Encounter [id number] 04/03 [facility] Outpatient Encounter [id number] 04/18 [facility] OFFICE O/P EST MOD 30 MIN [id number] Diagnos is: ICD-10- CM 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 JACE BUSBY 04[facility]18 [facility] [place] Outpatient Encounter [id number] 05/07 [facility] TELEHEALTH FACILITY FEE [id number] Diagnos is: ICD-10- CM G47.33 Obstruc tive sleep apnea (adult) ([facility]) Barbara JOHNSONICA 05/07 [facility] BOTTOM SCRUBBER STDY UNATTENDED [id number] Diagnos is: ICD-10- CM G47.33 Obstruc tive sleep apnea (adult) ([facility]) BRANDT FULLER 05/14 [facility] Outpatient Encounter [id number] Diagnos is: ICD-10- CM G47.33 Obstruc tive sleep apnea (adult) ([facility]) JAYNE SIMEON 05/14 [facility] Outpatient Encounter [id number] 07/18 [facility] Outpatient Encounter [id number] 09/11 [facility] Social History Combined list of available smoking, tobacco, and other social history from Department of Defense and Veterans Affairs facilities. Social History Type Response Date Comment Sourc e Tobacco smoking status NHIS VA-TOBACCO QUIT 15 YRS OR MORE 10/11/2023 [facility] History of tobacco use VA-TOBACCO FORMER USER 10/11/2023 [facility] History of tobacco use VA-TOBACCO FORMER USER 07/28/2022 [facility] History of tobacco use VA-TOBACCO FORMER USER 08/16/2018 [facility] History of tobacco use VA-TOBACCO FORMER USER 08/10/2017 [facility] History of tobacco use QUIT TOBACCO >7 Y EARS AGO 05/03/2007 [facility] History of tobacco use QUIT TOBACCO >7 Y EARS AGO 06/04/2006 [facility] History of tobacco use TOBACCO FORMER US ER MORE 12 MONTHS 04/27/2006 QUIT 15 YRS AGO [facility] This section is an empty social history section. DoD Plan of Care List of future care activities from Department of Veterans Affairs facilities. Additional future care activities may be listed in the Assessment and Plan section. Date/Time Care Activity Care Activity Detail Facili ty 10/18/2024 Laboratory - Chemistry Order COM PREHENSIVE METABOLIC PANEL LT GREEN PLASMA SP ONCE [facility]
--- OUTSIDE RECORDS SUMMARY | 2024-10-21 07:23 | XMS_ITS | Encounter Summary ---
Author Organization [facility] Address [address] [place] [address] Care Team Providers Care Medical Science Liaison Name Role Phone Chun Hobbs MD Unavailable Chun Hobbs MD Primary Care Provider [phone] Rene Castro MD Unavailable [phone] Orquidea Shah RN Unavailable Unavailable Evens Morgan DO Unavailable [phone] John Baptiste MD Unavailable [phone] Jessica Jenkins [employer] Unavailable [phone] Unallocated, [facility] Provider Primary Care Provi gonzales Torres Klein MD Primary Care Provider [phone] Reason for Visit * Reason Onset Date Comments Med Refill 08/02/2024 Encounter Details Date Type Department Care Team (Late st Contact Info) Description 08/02/2024 Refill [facility] [address] [facility] [address] [place] [address] Chun Hobbs MD [address] [facility] [address] [place] [address] Social History Tobacco Use Types Packs/Day Years Used Date Smoking Tobacco: Former Cigarettes Q uit: 05/28/1992 Alcohol Use Standard Drinks/Week Comments Never 0 (1 standard drink = 0.6 oz pure alcohol) caffeine: coffee 5-6 cups a day PHQ-2 Answer Date Recorded Patient Health Questionnaire-2 Score 0 03/26/2024 Sex and Gender Information Value Date Recorded Sex Assigned at Male 11/13/2022 9:05 AM EDT Legal Sex Male 7:10 PM EDT Gender Identity Male 11/13/2022 9:05 AM EDT Sexual Orientation Not on file Occupation Industry Job Start Date Job End Date retired- [employer] (21 yrs), Not on file Not on fi le Not on file documented as of this encounter Plan of Treatment Not on file documented as of this encounter Visit Diagnoses Not on filedocumented in this encounter Additional Health Concerns Assessment Noted Time PHQ-9 Depression Total Score: 1 09/20/19 24 1:00 PM EDT A fall risk assessment has been complete d for the patient 08/10/2023 1:18 PM EDT documented as of this encounter Care Teams Medical Science Liaison Relationship Specialty Start Date End Date Chun Hobbs MD [address] [place] [address] PCP - [employer] 05/28/22 Chun Hobbs MD [address] [place] [address] PCP - General Internal Medicine 10/03/22 10/06/24 Unallocated, [facility] Provider, [address] [place] [address] PCP - General Family Medicine 10/07/24 10/16/24 Torres Klein MD [address] [place] [address] PCP - General Family Medicine 10/17/24 Rene Castro MD [address] [facility] [address] [place] [address] Referring Physician Cardiology 09/05/23 Orquidea Shah, DOUG Registered Nurse Internal Medicine 06/03/24 10/07/24 Evens Morgan DO [address] [facility] [address] [place] [id number] Referring Physician Pulmonary Disease 09/24/24 John Baptiste MD [address] [place], [place] [id number] Referring Physician Urology 09/24/24 Jessica Jenkins NP [address] [facility] [address] [place] [address] Nurse Practitioner Family Medicine 09/24/24 [facility] 09/24/24 documented as of this encounter
--- OUTSIDE RECORDS SUMMARY | 2024-10-21 07:23 | XMS_ITS | Encounter Summary ---
Author Organization [facility] Address [address] [place] [address] Care Team Providers Care Stock Trader Name Role Phone Chun Hobbs MD Unavailable [phone] Chun Hobbs MD Primary Care Provider [phone] Rene Castro MD Unavailable [phone] Orquidea Shah RN Unavailable Unavailable Evens Morgan DO Unavailable [phone] John Baptiste MD Unavailable [phone] Jessica Jenkins SENIOR STEREO COMPILER TEAM LEAD Unavailable [phone] Unallocated, [facility] Provider Primary Care Provi gonzales Torres Klein MD Primary Care Provider [phone] Encounter Details Date Type Department Care Team (Late st Contact Info) Description 09/24/2024 Orders Only [facility] [address] [facility] [address] [place] [address] Unallocated, [facility] Provider, [address] [place] [address] Social History Tobacco Use Types Packs/Day Years Used Date Smoking Tobacco: Former Cigarettes Q uit: 05/28/1992 Alcohol Use Standard Drinks/Week Comments Never 0 (1 standard drink = 0.6 oz pure alcohol) caffeine: coffee 5-6 cups a day PHQ-2 Answer Date Recorded Patient Health Questionnaire-2 Score 0 09/24/2024 Sex and Gender Information Value Date Recorded Sex Assigned at Male 11/13/2022 9:05 AM EDT Legal Sex Male 7:10 PM EDT Gender Identity Male 11/13/2022 9:05 AM EDT Sexual Orientation Not on file Occupation Industry Job Start Date Job End Date retired- [employer] (21 yrs), Not on file Not on fi le Not on file documented as of this encounter Functional Status * Over the past 2 weeks, how often have you been bothered by any of the following problems? Question Answer Date of Assessment Author Little interest or pleasure in doing things Not at all 09/24/2024 1:00 PM EDT Zita Willis L PN Feeling down, depressed, or hopeless Not at all 09/24/2024 1:00 PM EDT Zita Willis L PN Patient Health Questionnaire -2 Score 0 09/24/2024 1:00 PM EDT Zita Willis L PN documented as of this encounter Plan of Treatment Not on file documented as of this encounter Procedures Procedure Name Priority Date/Time Associated Diagnosis Comments NT PRO-BNP Routine 09/22/2024 4:11 PM EDT TROPONIN T, HIGH SENSITIVITY Routine 09/22/2024 4:11 PM EDT CBC WITH AUTO DIFFERENTIAL Routine 09/22/2024 4:11 PM EDT COMPREHENSIVE METABOLIC PANEL Routine 09/22/2024 4:11 PM EDT documented in this encounter Results * CBC auto differential (09/22/2024 4:11 PM EDT) Blood Venous blood specimen / Unknown us [facility] Provider Unallocated MD LAB BLOOD ORDERABLE S Final Result * Comprehensive metabolic panel (09/22/2024 4:11 PM EDT) Blood Venous blood specimen / Unknown us [facility] Provider Unallocated MD LAB BLOOD ORDERABLE S Final Result * TROPONIN T, HIGH SENSITIVITY (09/22/2024 4:11 PM EDT) us [facility] Provider Unallocated MD LAB BLOOD ORDERABLE S Final Result * NT PRO-BNP (09/22/2024 4:11 PM EDT) [facility] Provider Unallocated LAB BLOOD ORDERABLE S Final Result documented in this encounter Visit Diagnoses Not on filedocumented in this encounter Additional Health Concerns Assessment Noted Time PHQ-9 Depression Total Score: 1 09/20/19 1:00 PM EDT A fall risk assessment has been complete d for the patient 08/10/2023 1:18 PM EDT documented as of this encounter Care Teams Stock Trader Relationship Specialty Start Date End Date Chun Hobbs MD [address] [place] [address] PCP - [employer] 05/28/22 Chun Hobbs MD [address] [place] [address] PCP - General Internal Medicine 10/03/22 10/06/24 Unallocated, [facility] Provider, [address] [place] [address] PCP - General Family Medicine 10/07/24 10/16/24 Torres Klein MD [address] [facility] [place] [phone] PCP - General Family Medicine 10/17/24 Rene Castro MD [address] [facility] [address] [place] [address] Referring Physician Cardiology 09/05/23 Orquidea Shah, DOUG Registered Nurse Internal Medicine 06/03/24 10/07/24 Evens Morgan DO [address] [facility] [address] [place] [phone] Referring Physician Pulmonary Disease 09/24/24 John Baptiste MD [address] [place] [address] Referring Physician Urology 09/24/24 Jessica Jenkins NP [address] [place] [address] Nurse Practitioner Family Medicine 09/24/24 [facility] 09/24/24 documented as of this encounter
--- OUTSIDE RECORDS SUMMARY | 2024-10-21 07:23 | XMS_ITS | Encounter Summary ---
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 Name Role Phone Chun Hobbs MD Unavailable [phone] Chun Hobbs MD Primary Care Provider [phone] Tootie Jacobson RN Unavailable [phone] Rene Castro MD Unavailable [phone] Orquidea Carreon RN Unavailable [phone] Orquidea Shah RN Unavailable Unavailable Evens Morgan DO Unavailable [phone] John Baptiste MD Unavailable [phone] Jessica Jenkins ASSISTANT PUBLIC DEFENDER Unavailable [phone] Unallocated, [facility] Provider Primary Care Provi gonzales Torres Klein MD Primary Care Provider [phone] Encounter Details Date Type Department Care Team (Late st Contact Info) Description 01/15/2024 Orders Only [facility] [address] [facility] [address] [place] [address] Chun Hobbs MD [address] [facility] [address] [place] [address] Social History Tobacco Use Types Packs/Day Years Used Date Smoking Tobacco: Former Cigarettes Q uit: 05/28/1992 Alcohol Use Standard Drinks/Week Comments Never 0 (1 standard drink = 0.6 oz pure alcohol) caffeine: coffee 5-6 cups a day PHQ-2 Answer Date Recorded Patient Health Questionnaire-2 Score 0 09/20/2023 Sex and Gender Information Value Date Recorded Sex Assigned at Male 11/13/2022 9:05 AM EDT Legal Sex Male 7:10 PM EDT Gender Identity Male 11/13/2022 9:05 AM EDT Sexual Orientation Not on file Occupation Industry Job Start Date Job End Date retired- [employer] [place] (21 yrs), Not on file Not on [...] documented as of this encounter Care Teams Skin Peeling Machine Operator Relationship Specialty Start Date End Date Chun Hobbs MD [address] [facility] [address] [facility] [address] [place] [address] PCP - [employer] 05/28/22 Chun Hobbs MD [address] [facility] [address] [place] [address] PCP - General Internal Medicine 10/03/22 10/06/24 Unallocated, [facility] Boby, [address] [place] [address] PCP - General Family Medicine 10/07/24 10/16/24 Torres Klein MD [address] [place] [phone] PCP - General Family Medicine 10/17/24 Tootie Jacobson RN [address] [place] [address] Registered Nurse Internal Medicine 08/10/23 03/28/24 Rene Castro MD [address] [facility] [address] [place] [address] Referring Physician Cardiology 09/05/23 Orquidea Carreon, DOUG Registered Nurse Family Medicine 03/28/24 06/03/24 Orquidea Shah, DOUG Registered Nurse Internal Medicine 06/03/24 10/07/24 Evens Morgan DO [address] [facility] [address] [place] [phone] Referring Physician Pulmonary Disease 09/24/24 John Baptiste MD [address] [facility] [place] [address] Referring Physician Urology 09/24/24 Jessica Jenkins NP [address] [place] [address] Nurse Practitioner Family Medicine 09/24/24 [facility] 09/24/24 documented as of this encounter
--- OUTSIDE RECORDS SUMMARY | 2024-10-21 07:23 | XMS_ITS | Patient Health Record ---
Author Organization 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 , NT Pro B Type Natriuretic Pept 556.0 <=900.0 pg/mL Performing Lab: see note ML - [facility] LB CBC AUTO DIFF Reviewed date:10/05/2024 05:49:06 PM Interpretation: Performing Lab: Notes/Report: [facility] , White Blood Count 10.0 4.0-11.0 10 3/uL Red Blood Count 4.77 4.70-6.10 10 6/uL Hemoglobin 13.7 14.0-18.0 g/dL Hematocrit 40.3 42.0-54.0 % Mean Corpuscular Volume 84.5 80.0-94.0 fL Mean Corpuscular Hemoglobin 28.7 25.9-34.0 pg Mean Corpuscular HGB Conc 34.0 29.9-35.2 g/dL Red Cell Distribution Width 14.5 11.0-15.0 % Platelet Count 198 150-450 10 3/uL Mean Platelet Volume 9.8 9.5-13.5 fL Neutrophils Percent Auto 67.2 43.0-75.0 % Lymphocytes Percent Auto 13.7 20.5-60.0 % Monocytes Percent Auto 11.6 1.7-12.0 % Eosinophils Percent Auto 6.1 0.9-7.0 % Basophils Percent Auto 0.4 0.2-2.0 % Immature Granulocytes Pct Auto 1.0 0.0-0.5 % Neutrophils Absolute Auto 6.7 1.4-6.5 10 3/uL Lymphocytes Absolute Auto 1.4 1.2-3.8 10 3/uL Monocytes Absolute Auto 1.2 0.3-0.8 10 3/uL Eosinophils Absolute Auto 0.6 0.0-0.7 10 3/uL Basophils Absolute Auto 0.0 0.0-0.1 10 3/uL Immature Granulocytes Abs Auto 0.10 0.00-0.03 10 3/uL Performing Lab: see note ML - [facility] LB INFLUENZA A AND B AG Reviewed date:10/05/2024 05:49:06 PM Interpretation: Performing Lab: Notes/Report: [facility] , Influenza Virus A Antigen Negative Negative for Flu A protein antigen. Infection due to Flu A cannot be ruled out. Flu A antigen in the sample may be below the detection limit of the test. Influenza Virus B Antigen Negative Negative for Flu B protein antigen. Infection due to Flu B cannot be ruled out. Flu B antigen in the sample may be below the detection limit of the test. Performing Lab: see note ML - [facility] LB LACTATE or LACTIC ACID Reviewed date:10/05/2024 05:49:06 PM Interpretation: Performing Lab: Notes/Report: [facility] , Lactate/Lactic Acid 0.9 0.4-2.0 mmol/L Performing Lab: see note ML - [facility] LB MAGNESIUM Reviewed date:10/05/2024 05:49:06 PM Interpretation: Performing Lab: Notes/Report: [facility] , Magnesium 2.1 1.8-2.4 mg/dL Performing Lab: see note ML - [facility] LB PROF 14(COMP METB) Reviewed date:10/05/2024 05:49:06 PM Interpretation: Performing Lab: Notes/Report: [facility] , Sodium 126 136-145 mmol/L Potassium 4.2 3.5-5.1 mmol/L Chloride 93 98-107 mmol/L Carbon Dioxide 25.1 21.0-32.0 mmol/L Anion Gap 12.1 Glucose 118 74-106 mg/dL Blood Urea Nitrogen 16.0 7.0-18.0 mg/dL Creatinine 1.06 0.70-1.30 mg/dL Estimated GFR ( Joyce >60 >=60 mL/min/1.73m 2 Estimated GFR (Non- Lulu >60 >=60 mL/min/1.73m 2 BUN Creatinine Ratio 15.1 Calcium 9.0 8.5-10.1 mg/dL Bilirubin Total 0.7 0.2-1.0 mg/dL Aspartate Amino Transferase 21 15-37 U/L Alanine Aminotransferase 39 16-63 U/L Alkaline Phosphatase 68 46-116 U/L Total Protein 6.2 6.4-8.2 g/dL Albumin Level 3.2 3.4-5.0 g/dL Globulin 3.0 Albumin Globulin Ratio 1.1 Performing Lab: see note ML - [facility] LB Prothrombin Time INR Reviewed date:10/05/2024 05:49:06 PM Interpretation: Performing Lab: Notes/Report: [facility] , Prothrombin Time 10.8 9.0-11.6 sec INR 1.02 DESIRED INR: 2.0-3.0 CONDITIONS NOT LISTED BELOW 2.5-3.5 FOR PROSTHETIC HEART VALVE REPLACEMENT 2.5-3.5 RECURRENT THROMBOSIS Performing Lab: see note ML - [facility] LB Troponin I High Sensitivity Reviewed date:10/05/2024 05:49:06 PM Interpretation: Performing Lab: Notes/Report: [facility] , Troponin I High Sensitivity 16.1 4.0-76.1 pg/mL CUT-OFF POINTS HAVE BEEN ESTABLISHED BASED ON THE FOURTH UNIVERSAL DEFINITION OF MYOCARDIAL INFARCTION. THE UPPER REFERENCE LIMIT (URL) OF TROPONIN, DEFINED THE 99TH PERCENTILE OF cTnI DISTRIBUTION IN A REFERENCE POPULATION, HAS BEEN CONFIRMED THE DECISION THRESHOLD FOR OR DIAGNOSIS. 99TH PERCENTILE = 76.2 PG/ML NOTE: HIGH-SENSITIVITY TROPONIN ASSAY IS NOT INTENDED TO BE USED IN ISOLATION BUT SHOULD BE INTERPRETED IN CONJUNCTION WITH OTHER DIAGNOSTIC AND CLINICAL INFORMATION. Performing Lab: see note ML - [facility] LB Venous Blood Gas Reviewed date:10/05/2024 05:49:06 PM Interpretation: Performing Lab: Notes/Report: [facility] , pH VBG 7.485 7.330-7.430 PCO2 VBG 30.9 40.0-52.0 mmHg Performing Lab: see note ML - [facility] LB SARS-CoV-2 Ag* Reviewed date:10/05/2024 05:49:06 PM Interpretation: Performing Lab: Notes/Report: [facility] , SARS-CoV-2 Ag NEGATIVE NEGATIVE This test has not been FDA cleared or approved, but has been authorized by the FDA under an Emergency Use Authorization (EUA) for use by authorized laboratories certified under CLIA that meet the requirements to perform moderate or high complexity testing. This test has been authorized only for the detection of proteins from SARS-CoV-2, not for any other viruses or pathogens. The emergency use of this test is authorized for the duration of the declaration that circumstances exist justifying the authorization of emergency use of in vitro diagnostic tests for detection and/or diagnosis of Covid-19 under section 564(b)(1) of the Act, 21 U.S.C. 360bbb-3(b)(1), unless the declaration is terminated or authorization is revoked sooner. Performing Lab: see note ML - [facility] LB ECG 12 lead Reviewed date:10/05/2024 05:49:06 PM Interpretation: Performing Lab: Notes/Report: Source Facility: [place] [address] [place] [address] Electrocardiograph Report Signed Patient: DEMARCUS PANCHAL MR#: [id number] : 1955 Acct:[id number] Age/Sex: 69 / M ADM Date: 10/03/24 Loc: ER Attending Dr: Ordering Physician: Irma Waters Date of Service: 10/03/24 Procedure(s): ECG 12 lead Accession Number(s): [id number] cc: 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 Measurements Intervals [place] Rate: 74 P: 30 MN: 158 QRS: -12 QRSD: 98 T: 113 QT: 382 QTc: 410 Interpretive Statements 1100 Sinus rhythm 5234 Left ventricular hypertrophy with repolarization abnormality 9150 abnormal ECG Compared to ECG 09/25/2024 11:23:51 Early repolarization now present Ventricular premature complex(es) no longer present Electronically Signed On 10-03-2024 18:49:24 EDT by MELANY CHEN M.D. Dictated By: MELANY CHEN Signed By: 10/03/241848 DD/ 39 TD/TT: Conversion Man: [place] [address] Electrocardiograph Report Signed Patient: BEVERLY PANCHAL MR#: [id number] : 1955 Acct:[id number] Age/Sex: 69 / M ADM Date: 10/03/24 Loc: ER Attending Dr: Ordering Physician: Irma Waters Date of Service: 10/03/24 Procedure(s): ECG 12 lead Accession Number(s): [id number] cc: 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 Measurements Intervals [place] Rate: 74 P: 30 MN: 158 QRS: -12 QRSD: 98 T: 113 QT: 382 QTc: 410 Interpretive Statements 1100 Sinus rhythm 5234 Left ventricula r hypertrophy with repolarization abnormality 9150 abnormal ECG Compared to ECG 09/25/2024 11:23:51 Early repolarization now present Ventricular prematur e complex(es) no longer present Electronically Areli d On 10-03-2024 18:49:24 EDT by MELANY CHEN M.D. Dictated By: MELANY CHEN Signed By: 10/03/241848 DD/ 1740 TD/TT: Conversion Man: CBC AUTO DIFF Reviewed date:10/06/2024 02:02:36 PM Interpretation: Performing Lab: Notes/Report: [facility] , White Blood Count 9.5 4.0-11.0 10 3/uL Red Blood Count 4.96 4.70-6.10 10 6/uL Hemoglobin 14.1 14.0-18.0 g/dL Hematocrit 41.1 42.0-54.0 % Mean Corpuscular Volume 82.9 80.0-94.0 fL Mean Corpuscular Hemoglobin 28.4 25.9-34.0 pg Mean Corpuscular HGB Conc 34.3 29.9-35.2 g/dL Red Cell Distribution Width 14.7 11.0-15.0 % Platelet Count 201 150-450 10 3/uL Mean Platelet Volume 10.3 9.5-13.5 fL Neutrophils Percent Auto 72.3 43.0-75.0 % Lymphocytes Percent Auto 10.4 20.5-60.0 % Monocytes Percent Auto 10.7 1.7-12.0 % Eosinophils Percent Auto 5.6 0.9-7.0 % Basophils Percent Auto 0.4 0.2-2.0 % Immature Granulocytes Pct Auto 0.6 0.0-0.5 % Neutrophils Absolute Auto 6.9 1.4-6.5 10 3/uL Lymphocytes Absolute Auto 1.0 1.2-3.8 10 3/uL Monocytes Absolute Auto 1.0 0.3-0.8 10 3/uL Eosinophils Absolute Auto 0.5 0.0-0.7 10 3/uL Basophils Absolute Auto 0.0 0.0-0.1 10 3/uL Immature Granulocytes Abs Auto 0.06 0.00-0.03 10 3/uL Performing Lab: see note ML - [facility] LB PROF 14(COMP METB) Reviewed date:10/06/2024 02:02:36 PM Interpretation: Performing Lab: Notes/Report: [facility] , Sodium 131 136-145 mmol/L Potassium 3.7 3.5-5.1 mmol/L Chloride 96 98-107 mmol/L Carbon Dioxide 27.2 21.0-32.0 mmol/L Anion Gap 11.5 Glucose 116 74-106 mg/dL Blood Urea Nitrogen 16.0 7.0-18.0 mg/dL Creatinine 1.16 0.70-1.30 mg/dL Estimated GFR ( Joyce >60 >=60 mL/min/1.73m 2 Estimated GFR (Non- Lulu >60 >=60 mL/min/1.73m 2 BUN Creatinine Ratio 13.8 Calcium 8.7 8.5-10.1 mg/dL Bilirubin Total 0.6 0.2-1.0 mg/dL Aspartate Amino Transferase 23 15-37 U/L Alanine Aminotransferase 39 16-63 U/L Alkaline Phosphatase 70 46-116 U/L Total Protein 6.7 6.4-8.2 g/dL Albumin Level 3.2 3.4-5.0 g/dL Globulin 3.5 Albumin Globulin Ratio 0.9 Performing Lab: see note ML - [facility] LB XR chest 1V Reviewed date:10/06/2024 02:02:37 PM Interpretation: Performing Lab: Notes/Report: Source Facility: [facility]-[address] [place] [address] [place] [address] XRay Report Signed Patient: DEMARCUS PANCHAL MR#: [id number] : 1955 Acct:[id number] Age/Sex: 69 / M ADM Date: 10/06/24 Loc: ER Attending Dr: Ordering Physician: Indra Bernard M.D. Date of Service: 10/06/24 Procedure(s): XR chest 1V Accession Number(s): [id number] cc: Rk Klein M.D.; Indra Bernard M.D. [place] [address] Patient Name: DEMARCUS PANCHAL MRN: [id number] date: 1955 Sex: M Assigned Patient Location: ER Current Patient Location: ER Accession/Order Number: [id number] Exam Date: 10/06/2024 12:17 Report Date: 10/06/2024 12:25 At the request of: INDRA BERNARD MD Procedure: XR chest 1V PORTABLE AP ERECT CHEST 1100 hours CLINICAL HISTORY: cough COMPARISON: 10/03/2024 Patient is slightly rotated. The heart remains borderline prominent. Mild peribronchial thickening is seen. There is still minor reticular change with some associated nodularity at the left lower lung. There is no developing consolidation, sizable effusion or pneumothorax. The bony structures are osteopenic. XR/XR chest 1V IMPRESSION: CONTINUED BORDERLINE CARDIOMEGALY. MINOR PARENCHYMAL CHANGES, GREATEST AT THE LEFT BASE. Impression dictated by: Lisa Barillas M.D. 10/06/2024 12:25 PM Dictation Location: [place] [address] Electronically authenticated by: [id number] Y Date: 10/06/2024 12:25 Dictated By: Lisa Barillas M.D. Signed By: 10/06/247 DD/ 24 TD/TT: Conversion Man: [place] [address] XRay Report Signed Patient: BEVERLY PANCHAL MR#: [id number] : 1955 Acct:[id number] Age/Sex: 69 / M ADM Date: 10/06/24 Loc: ER Attending Dr: Ordering Physician: Indra Bernard M.D. Date of Service: 10/06/24 Procedure(s): XR chest 1V Accession Number(s): [id number] cc: Rk Klein M.D. ; Indra Bernard M.D. The [address] [id number] Patient Name: DEMARCUS PANCHAL MRN: [id number] date: 1955 Sex: M Assigned Patient Location: ER Current Patient Loca tion: ER Accession/Order Numb er: [id number] Exam Date: 10/06/2024 12:17 Report Date: 10/06/2024 12:25 At the request of: INDRA BERNARD MD Procedure: XR chest 1V PORTABLE AP ERECT CH EST 1100 hours CLINICAL HISTORY: cough COMPARISON: 10/03/2024 Patient is slightly rotated. The heart remains borderline prominent. Mild peribronchial thicke miladys is seen. There is still minor reticular change with some associated nodularity at the left lower lung. There is no developing consolidation, sizab le effusion or pneumothorax. The bony structures are osteopenic. X R/XR chest 1V IMPRESSION: CONTINUED BORDERLINE CARDIOMEGALY. MINOR PARENCHYMAL CHANGES, GREATEST AT THE LEFT BASE. Impression dictated by: Lisa Barillas M.D. 10/06/2024 12:25 PM Dictation Location: [place] [address] Electronically authenticated by: [id number] Y Date: 10/06/2024 12:25 Dictated By: Lisa Barillas M.D. Signed By: 10/06/24 1227 DD/ 1225 TD/TT: Conversion Man: BNP Reviewed date:10/09/2024 03:32:21 PM Interpretation: Performing Lab: Notes/Report: [facility] , NT Pro B Type Natriuretic Pept 392.0 <=900.0 pg/mL Performing Lab: see note ML - [facility] LB MAGNESIUM Reviewed date:10/09/2024 03:32:21 PM Interpretation: Performing Lab: Notes/Report: [facility] , Magnesium 2.0 1.8-2.4 mg/dL Performing Lab: see note ML - [facility] LB Troponin I High Sensitivity Reviewed date:10/09/2024 03:32:21 PM Interpretation: Performing Lab: Notes/Report: [facility] , Troponin I High Sensitivity 14.3 4.0-76.1 pg/mL CUT-OFF POINTS HAVE BEEN ESTABLISHED BASED ON THE FOURTH UNIVERSAL DEFINITION OF MYOCARDIAL INFARCTION. THE UPPER REFERENCE LIMIT (URL) OF TROPONIN, DEFINED THE 99TH PERCENTILE OF cTnI DISTRIBUTION IN A REFERENCE POPULATION, HAS BEEN CONFIRMED THE DECISION THRESHOLD FOR OR DIAGNOSIS. 99TH PERCENTILE = 76.2 PG/ML NOTE: HIGH-SENSITIVITY TROPONIN ASSAY IS NOT INTENDED TO BE USED IN ISOLATION BUT SHOULD BE INTERPRETED IN CONJUNCTION WITH OTHER DIAGNOSTIC AND CLINICAL INFORMATION. Performing Lab: see note ML - [facility] LB CBC AUTO DIFF Reviewed date:10/12/2024 09:43:25 PM Interpretation: Performing Lab: Notes/Report: [facility] , White Blood Count 6.9 4.0-11.0 10 3/uL Red Blood Count 4.46 4.70-6.10 10 6/uL Hemoglobin 12.9 14.0-18.0 g/dL Hematocrit 36.7 42.0-54.0 % Mean Corpuscular Volume 82.3 80.0-94.0 fL Mean Corpuscular Hemoglobin 28.9 25.9-34.0 pg Mean Corpuscular HGB Conc 35.1 29.9-35.2 g/dL Red Cell Distribution Width 13.9 11.0-15.0 % Platelet Count 188 150-450 10 3/uL Mean Platelet Volume 10.1 9.5-13.5 fL Neutrophils Percent Auto 84.1 43.0-75.0 % Lymphocytes Percent Auto 12.6 20.5-60.0 % Monocytes Percent Auto 2.8 1.7-12.0 % Eosinophils Percent Auto 0.1 0.9-7.0 % Basophils Percent Auto 0.1 0.2-2.0 % Immature Granulocytes Pct Auto 0.3 0.0-0.5 % Neutrophils Absolute Auto 5.8 1.4-6.5 10 3/uL Lymphocytes Absolute Auto 0.9 1.2-3.8 10 3/uL Monocytes Absolute Auto 0.2 0.3-0.8 10 3/uL Eosinophils Absolute Auto 0.0 0.0-0.7 10 3/uL Basophils Absolute Auto 0.0 0.0-0.1 10 3/uL Immature Granulocytes Abs Auto 0.02 0.00-0.03 10 3/uL Performing Lab: see note - [facility] LB Result 1 Reviewed date:10/18/2024 11:43:47 AM Interpretation: Performing Lab: Notes/Report: [facility] , Result 1 See Below For Report Result 1 Small amount of yeast seen. Performing Lab: see note LC - [facility] LB Result 2 Reviewed date:10/18/2024 11:43:47 AM Interpretation: Performing Lab: Notes/Report: [facility] , Result 2 See Below For Report Result 2 Rare gram positive cocci Performing Lab: see note LC - [facility] LB Result 3 Reviewed date:10/18/2024 11:43:47 AM Interpretation: Performing Lab: Notes/Report: [facility] , Result 3 See Below For Report Result 3 *ABNORMAL* Result 3 Rare gram negative rods. 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 Gram Stain Evaluation This specimen is of good quality and is acceptable for routine Performing Lab: see note LC - [facility] LB CBC AUTO DIFF Reviewed date:10/12/2024 09:43:25 PM Interpretation: Performing Lab: Notes/Report: [facility] , White Blood Count 19.4 4.0-11.0 10 3/uL Red Blood Count 4.54 4.70-6.10 10 6/uL Hemoglobin 12.8 14.0-18.0 g/dL Hematocrit 37.8 42.0-54.0 % Mean Corpuscular Volume 83.3 80.0-94.0 fL Mean Corpuscular Hemoglobin 28.2 25.9-34.0 pg Mean Corpuscular HGB Conc 33.9 29.9-35.2 g/dL Red Cell Distribution Width 14.2 11.0-15.0 % Platelet Count 226 150-450 10 3/uL Mean Platelet Volume 10.2 9.5-13.5 fL Neutrophils Percent Auto 89.5 43.0-75.0 % Lymphocytes Percent Auto 5.6 20.5-60.0 % Monocytes Percent Auto 3.5 1.7-12.0 % Eosinophils Percent Auto 0.0 0.9-7.0 % Basophils Percent Auto 0.1 0.2-2.0 % Immature Granulocytes Pct Auto 1.3 0.0-0.5 % Neutrophils Absolute Auto 17.4 1.4-6.5 10 3/uL Lymphocytes Absolute Auto 1.1 1.2-3.8 10 3/uL Monocytes Absolute Auto 0.7 0.3-0.8 10 3/uL Eosinophils Absolute Auto 0.0 0.0-0.7 10 3/uL Basophils Absolute Auto 0.0 0.0-0.1 10 3/uL Immature Granulocytes Abs Auto 0.25 0.00-0.03 10 3/uL Performing Lab: see note ML - [facility] LB PROF CHEM 8 (BAS METB) Reviewed date:10/12/2024 09:43:25 PM Interpretation: Performing Lab: Notes/Report: [facility] , Sodium 135 136-145 mmol/L Potassium 4.3 3.5-5.1 mmol/L Chloride 98 98-107 mmol/L Carbon Dioxide 25.4 21.0-32.0 mmol/L Anion Gap 15.9 Glucose 161 74-106 mg/dL Blood Urea Nitrogen 17.0 7.0-18.0 mg/dL Creatinine 0.96 0.70-1.30 mg/dL Estimated GFR ( Joyce >60 >=60 mL/min/1.73m 2 Estimated GFR (Non- Lulu >60 >=60 mL/min/1.73m 2 BUN Creatinine Ratio 17.7 Calcium 9.2 8.5-10.1 mg/dL Performing Lab: see note - [facility] LB CBC AUTO DIFF Reviewed date:10/13/2024 12:53:09 PM Interpretation: Performing Lab: Notes/Report: [facility] , White Blood Count 12.9 4.0-11.0 10 3/uL Red Blood Count 4.08 4.70-6.10 10 6/uL Hemoglobin 11.8 14.0-18.0 g/dL Hematocrit 34.0 42.0-54.0 % Mean Corpuscular Volume 83.3 80.0-94.0 fL Mean Corpuscular Hemoglobin 28.9 25.9-34.0 pg Mean Corpuscular HGB Conc 34.7 29.9-35.2 g/dL Red Cell Distribution Width 14.4 11.0-15.0 % Platelet Count 197 150-450 10 3/uL Mean Platelet Volume 10.0 9.5-13.5 fL Neutrophils Percent Auto 86.7 43.0-75.0 % Lymphocytes Percent Auto 5.7 20.5-60.0 % Monocytes Percent Auto 5.5 1.7-12.0 % Eosinophils Percent Auto 0.0 0.9-7.0 % Basophils Percent Auto 0.1 0.2-2.0 % Immature Granulocytes Pct Auto 2.0 0.0-0.5 % Neutrophils Absolute Auto 11.2 1.4-6.5 10 3/uL Lymphocytes Absolute Auto 0.7 1.2-3.8 10 3/uL Monocytes Absolute Auto 0.7 0.3-0.8 10 3/uL Eosinophils Absolute Auto 0.0 0.0-0.7 10 3/uL Basophils Absolute Auto 0.0 0.0-0.1 10 3/uL Immature Granulocytes Abs Auto 0.26 0.00-0.03 10 3/uL Performing Lab: see note ML - [facility] LB PROF CHEM 8 (BAS METB) Reviewed date:10/13/2024 12:53:09 PM Interpretation: Performing Lab: Notes/Report: [facility] , Sodium 140 136-145 mmol/L Potassium 3.8 3.5-5.1 mmol/L Chloride 104 98-107 mmol/L Carbon Dioxide 27.2 21.0-32.0 mmol/L Anion Gap 12.6 Glucose 194 74-106 mg/dL Blood Urea Nitrogen 18.0 7.0-18.0 mg/dL Creatinine 1.06 0.70-1.30 mg/dL Estimated GFR ( Joyce >60 >=60 mL/min/1.73m 2 Estimated GFR (Non- Lulu >60 >=60 mL/min/1.73m 2 BUN Creatinine Ratio 17.0 Calcium 8.5 8.5-10.1 mg/dL Performing Lab: see note ML - [facility] LB BNP Reviewed date:10/14/2024 06:07:04 PM Interpretation: Performing Lab: Notes/Report: [facility] , NT Pro B Type Natriuretic Pept 1471.0 <=900.0 pg/mL RESULTS CALLED TO PAUL HURST RN @BY Leta Martin at 0632 Performing Lab: see note ML - [facility] LB CBC AUTO DIFF Reviewed date:10/14/2024 06:07:04 PM Interpretation: Performing Lab: Notes/Report: [facility] , White Blood Count 11.6 4.0-11.0 10 3/uL Red Blood Count 4.34 4.70-6.10 10 6/uL Hemoglobin 12.4 14.0-18.0 g/dL Hematocrit 36.2 42.0-54.0 % Mean Corpuscular Volume 83.4 80.0-94.0 fL Mean Corpuscular Hemoglobin 28.6 25.9-34.0 pg Mean Corpuscular HGB Conc 34.3 29.9-35.2 g/dL Red Cell Distribution Width 14.2 11.0-15.0 % Platelet Count 200 150-450 10 3/uL Mean Platelet Volume 9.9 9.5-13.5 fL Neutrophils Percent Auto 75.6 43.0-75.0 % Lymphocytes Percent Auto 14.9 20.5-60.0 % Monocytes Percent Auto 6.4 1.7-12.0 % Eosinophils Percent Auto 0.2 0.9-7.0 % Basophils Percent Auto 0.3 0.2-2.0 % Immature Granulocytes Pct Auto 2.6 0.0-0.5 % Neutrophils Absolute Auto 8.8 1.4-6.5 10 3/uL Lymphocytes Absolute Auto 1.7 1.2-3.8 10 3/uL Monocytes Absolute Auto 0.7 0.3-0.8 10 3/uL Eosinophils Absolute Auto 0.0 0.0-0.7 10 3/uL Basophils Absolute Auto 0.0 0.0-0.1 10 3/uL Immature Granulocytes Abs Auto 0.30 0.00-0.03 10 3/uL Performing Lab: see note ML - [facility] LB PROF CHEM 8 (BAS METB) Reviewed date:10/14/2024 06:07:04 PM Interpretation: Performing Lab: Notes/Report: [facility] , Sodium 140 136-145 mmol/L Potassium 3.4 3.5-5.1 mmol/L Chloride 101 98-107 mmol/L Carbon Dioxide 29.8 21.0-32.0 mmol/L Anion Gap 12.6 Glucose 140 74-106 mg/dL Blood Urea Nitrogen 22.0 7.0-18.0 mg/dL Creatinine 1.04 0.70-1.30 mg/dL Estimated GFR ( Joyce >60 >=60 mL/min/1.73m 2 Estimated GFR (Non- Lulu >60 >=60 mL/min/1.73m 2 BUN Creatinine Ratio 21.2 Calcium 9.0 8.5-10.1 mg/dL Performing Lab: see note - [facility] LB XR chest 2V Reviewed date:10/15/2024 09:28:27 AM Interpretation: Performing Lab: Notes/Report: Source Facility: [place] [address] XRay Report Signed Patient: DEMARCUS PANCHAL MR#: [id number] : 1955 Acct:[id number] Age/Sex: 69 / M ADM Date: 10/09/24 Loc: [place] 219-[address]: Rk Klein M.D. Ordering Physician: Rk Klein M.D. Date of Service: 10/15/24 Procedure(s): XR chest 2V Accession Number(s): [id number] cc: Rk Klein M.D. [place] [address] Patient Name: DEMARCUS PANCHAL MRN: [id number] date: 1955 Sex: M Assigned Patient Location: NM Current Patient Location: [place] Accession/Order Number: [id number] Exam Date: 10/15/2024 09:06 Report Date: 10/15/2024 09:11 At the request of: RK KLEIN MD Procedure: XR chest 2V PA AND LATERAL CHEST: CLINICAL HISTORY: follow up pneumonia. Hemoptysis and productive cough COMPARISON: 10/13/[address] 10/11/2024 Similar mild groundglass opacities are noted. There is no developing consolidation, effusion or pneumothorax. The cardiac, hilar and mediastinal silhouettes are within normal limits. There is no vascular congestion. The visualized bony thorax is intact. There is spurring seen. XR/XR chest 2V IMPRESSION: CONTINUED PARENCHYMAL CHANGES. NO NEW ABNORMALITIES. Impression dictated by: Lisa Barillas M.D. 10/15/2024 9:11 AM Dictation Location: [place] [address] Electronically authenticated by: [id number] Y Date: 10/15/2024 09:11 Dictated By: Lisa Barillas M.D. Signed By: 10/15/24913 DD/ 0 TD/TT: Conversion Man: [place] [address] XRay Report Signed Patient: BEVERLY PANCHAL MR#: [id number] : 1955 Acct:[id number] Age/Sex: 69 / M ADM Date: 10/09/24 Loc: [place] 219-1 Attending Dr: Elgin Klein M.D. Ordering Physician: Rk Klein M.D. Date of Service: 10/15/24 Procedure(s): XR chest 2V Accession Number(s): [id number] cc: Rk Klein M.D. The [address] [address] Patient Name: DEMARCUS PANCHAL MRN: [id number] date: 1955 Sex: M Assigned Patient Location: MS Current Patient Loca tion: MS Accession/Order Numb er: [id number] Exam Date: 10/15/2024 09:06 Report Date: 10/15/2024 09:11 At the request of: RK KLEIN MD Procedure: XR chest 2V PA AND LATERAL CHEST: CLINICAL HISTORY: fo llow up pneumonia. Hemoptysis and productive cough COMPARISON: and CT 10/11/2024 Similar mild groundg lass opacities are noted. There is no developing consolidation, effus ion or pneumothorax. The cardiac, hilar and mediastinal silhouettes are with in normal limits. There is no vascular congestion. The visualized bony thor ax is intact. There is spurring seen. X R/XR chest 2V IMPRESSION: CONTINUED PARENCHYMA L CHANGES. NO NEW ABNORMALITIES. Impression dictated by: Lisa Barillsa M.D. 10/15/2024 9:11 AM Dictation Location: [place] [address] Electronically authenticated by: [id number] Y Date: 10/15/2024 09:11 Dictated By: Lisa Barillas M.D. Signed By: 10/15/24913 DD/ 0 TD/TT: Conversion Man: PROF MANUEL Villa ([facility]) Reviewed date:10/16/2024 12:36:43 PM Interpretation: Performing Lab: Notes/Report: [facility] , Sodium 140 136-145 mmol/L Potassium 4.1 3.5-5.1 mmol/L Chloride 100 98-107 mmol/L Carbon Dioxide 28.8 21.0-32.0 mmol/L Anion Gap 15.3 Glucose 156 74-106 mg/dL Blood Urea Nitrogen 23.0 7.0-18.0 mg/dL Creatinine 1.01 0.70-1.30 mg/dL Estimated GFR ( Joyce >60 >=60 mL/min/1.73m 2 Estimated GFR (Non- Lulu >60 >=60 mL/min/1.73m 2 BUN Creatinine Ratio 22.8 Calcium 8.7 8.5-10.1 mg/dL Performing Lab: see note [facility] Troponin I High Sensitivity Reviewed date:10/16/2024 12:36:43 PM Interpretation: Performing Lab: Notes/Report: Comment From blood drawn earlier this am? [facility] , Troponin I High Sensitivity 24.6 4.0-76.1 pg/mL CUT-OFF POINTS HAVE BEEN ESTABLISHED BASED ON THE FOURTH UNIVERSAL DEFINITION OF MYOCARDIAL INFARCTION. THE UPPER REFERENCE LIMIT (URL) OF TROPONIN, DEFINED THE 99TH PERCENTILE OF cTnI DISTRIBUTION IN A REFERENCE POPULATION, HAS BEEN CONFIRMED THE DECISION THRESHOLD FOR OR DIAGNOSIS. 99TH PERCENTILE = 76.2 PG/ML NOTE: HIGH-SENSITIVITY TROPONIN ASSAY IS NOT INTENDED TO BE USED IN ISOLATION BUT SHOULD BE INTERPRETED IN CONJUNCTION WITH OTHER DIAGNOSTIC AND CLINICAL INFORMATION. Performing Lab: see note ML [facility] ECG 12 lead Reviewed date:10/16/2024 07:54:19 PM Interpretation: Performing Lab: Notes/Report: Source Facility: [place] [address] [place] [address] Electrocardiograph Report Signed Patient: DEMARCUS PANCHAL MR#: [id number] : 1955 Acct:[id number] Age/Sex: 69 / M ADM Date: 10/09/24 Loc: MS 219-[address]: Rk Klein M.D. Ordering Physician: Rk Klein M.D. Date of Service: 10/16/24 Procedure(s): ECG 12 lead Accession Number(s): [id number] cc: 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 Signed By: 10/16/24 1544 DD/ 0911 TD/TT: Conversion Man: [place] [address] Electrocardiograph Report Signed Patient: BEVERLY PANCHAL MR#: [id number] : 1955 Acct:[id number] Age/Sex: 69 / M ADM Date: 10/09/24 Loc: MS 219-[address]: Elgin Klein M.D. Ordering Physician: Rk Klein M.D. Date of Service: 10/16/24 Procedure(s): ECG 12 lead Accession Number(s): [id number] cc: 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 Signed By: 10/16/24 1544 DD/ 0911 TD/TT: Conversion Man: BNP Reviewed date:10/20/2024 03:22:57 PM Interpretation: Performing Lab: Notes/Report: [facility] , NT Pro B Type Natriuretic Pept 70.0 <=900.0 pg/mL Performing Lab: see note ML - [facility] LB CBC AUTO DIFF Reviewed date:10/20/2024 03:22:57 PM Interpretation: Performing Lab: Notes/Report: [facility] , White Blood Count 11.8 4.0-11.0 10 3/uL Red Blood Count 4.95 4.70-6.10 10 6/uL Hemoglobin 14.3 14.0-18.0 g/dL Hematocrit 41.2 42.0-54.0 % Mean Corpuscular Volume 83.2 80.0-94.0 fL Mean Corpuscular Hemoglobin 28.9 25.9-34.0 pg Mean Corpuscular HGB Conc 34.7 29.9-35.2 g/dL Red Cell Distribution Width 14.2 11.0-15.0 % Platelet Count 196 150-450 10 3/uL Mean Platelet Volume 10.0 9.5-13.5 fL Neutrophils Percent Auto 69.1 43.0-75.0 % Lymphocytes Percent Auto 13.1 20.5-60.0 % Monocytes Percent Auto 11.5 1.7-12.0 % Eosinophils Percent Auto 3.8 0.9-7.0 % Basophils Percent Auto 0.2 0.2-2.0 % Immature Granulocytes Pct Auto 2.3 0.0-0.5 % Neutrophils Absolute Auto 8.1 1.4-6.5 10 3/uL Lymphocytes Absolute Auto 1.6 1.2-3.8 10 3/uL Monocytes Absolute Auto 1.4 0.3-0.8 10 3/uL Eosinophils Absolute Auto 0.5 0.0-0.7 10 3/uL Basophils Absolute Auto 0.0 0.0-0.1 10 3/uL Immature Granulocytes Abs Auto 0.27 0.00-0.03 10 3/uL Performing Lab: see note ML - [facility] LB LACTATE or LACTIC ACID Reviewed date:10/20/2024 03:22:57 PM Interpretation: Performing Lab: Notes/Report: [facility] , Lactate/Lactic Acid 1.7 0.4-2.0 mmol/L Performing Lab: see note - [facility] PROF 14(COMP METB) Reviewed date:10/20/2024 03:22:57 PM Interpretation: Performing Lab: Notes/Report: [facility] , Sodium 127 136-145 mmol/L Potassium 4.1 3.5-5.1 mmol/L Chloride 93 98-107 mmol/L Carbon Dioxide 26.0 21.0-32.0 mmol/L Anion Gap 12.1 Glucose 117 74-106 mg/dL Blood Urea Nitrogen 23.0 7.0-18.0 mg/dL Creatinine 0.91 0.70-1.30 mg/dL Estimated GFR ( Joyce >60 >=60 mL/min/1.73m 2 Estimated GFR (Non- Lulu >60 >=60 mL/min/1.73m 2 BUN Creatinine Ratio 25.3 Calcium 8.8 8.5-10.1 mg/dL Bilirubin Total 0.7 0.2-1.0 mg/dL Aspartate Amino Transferase 20 15-37 U/L Alanine Aminotransferase 31 16-63 U/L Alkaline Phosphatase 69 46-116 U/L Total Protein 6.4 6.4-8.2 g/dL Albumin Level 2.8 3.4-5.0 g/dL Globulin 3.6 Albumin Globulin Ratio 0.8 Performing Lab: see note ML [facility] TSH Reviewed date:10/20/2024 03:22:57 PM Interpretation: Performing Lab: Notes/Report: [facility] , Thyroid Stimulating Hormone 3.429 0.358-3.740 uIU/mL Performing Lab: see note - [facility] UA RANDOM W or MICROSCOPIC Reviewed date:10/20/2024 03:22:57 PM Interpretation: Performing Lab: Notes/Report: [facility] , Color Urine LT. YELLOW YELLOW Clarity Urine CLEAR CLEAR Specific Cutler Urine 1.010 1.005-1.025 pH Urine 6.0 5.0-9.0 Protein Urine NEGATIVE NEG/TRACE mg/dL Glucose Urine UA >=1000 NEGATIVE mg/dL Bilirubin Urine NEGATIVE NEGATIVE Ketones Urine NEGATIVE NEGATIVE mg/dL Blood Urine NEGATIVE NEGATIVE Nitrite Urine NEGATIVE NEGATIVE Urobilinogen Urine 0.2 0.2-1.0 EU/dL Leukocyte Esterase Urine NEGATIVE NEGATIVE WBC Urine NONE SEEN NONE SEEN #/HPF RBC Urine NONE SEEN 0-2 #/HPF Bacteria Urine TRACE NONE SEEN #/HPF Mucus Urine NONE SEEN NONE SEEN Squamous Epithelial Cell Urine NONE SEEN NONE/RARE #/LPF Crystals Seen? None Seen None Seen #/HPF Cast Seen? NONE SEEN NONE SEEN #/LPF Performing Lab: see note - [facility] Blood Culture 1 Reviewed date:10/20/2024 03:36:12 PM Interpretation: Performing Lab: Notes/Report: [facility] , Blood Culture 1 See Below For Report Blood Culture 1 NG3D NO GROWTH AT 36-48 HOURS. FINAL TO FOLLOW.^NO GROWTH AT 36-48 HOURS. FINAL TO FOLLOW. Performing Lab: see note - [facility] Blood Culture 2 Reviewed date:10/20/2024 03:36:12 PM Interpretation: Performing Lab: Notes/Report: [facility] , Blood Culture 2 See Below For Report Blood Culture 2 NG3D NO GROWTH AT 36-48 HOURS. FINAL TO FOLLOW.^NO GROWTH AT 36-48 HOURS. FINAL TO FOLLOW. Performing Lab: see note - [facility] LB Troponin I High Sensitivity Reviewed date:10/20/2024 03:22:57 PM Interpretation: Performing Lab: Notes/Report: [facility] , Troponin I High Sensitivity 19.3 4.0-76.1 pg/mL CUT-OFF POINTS HAVE BEEN ESTABLISHED BASED ON THE FOURTH UNIVERSAL DEFINITION OF MYOCARDIAL INFARCTION. THE UPPER REFERENCE LIMIT (URL) OF TROPONIN, DEFINED THE 99TH PERCENTILE OF cTnI DISTRIBUTION IN A REFERENCE POPULATION, HAS BEEN CONFIRMED THE DECISION THRESHOLD FOR OR DIAGNOSIS. 99TH PERCENTILE = 76.2 PG/ML NOTE: HIGH-SENSITIVITY TROPONIN ASSAY IS NOT INTENDED TO BE USED IN ISOLATION BUT SHOULD BE INTERPRETED IN CONJUNCTION WITH OTHER DIAGNOSTIC AND CLINICAL INFORMATION. Performing Lab: see note - [facility] LB ECG 12 lead Reviewed date:10/20/2024 03:22:57 PM Interpretation: Performing Lab: Notes/Report: Source Facility: [facility]-[address] [place] [address] [place] [address] Electrocardiograph Report Signed Patient: DEMARCUS PANCHAL MR#: [id number] : 1955 Acct:[id number] Age/Sex: 69 / M ADM Date: 10/18/24 Loc: MS 231-[address]: Rk Klein M.D. Ordering Physician: Daren Mendoza D.O. 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 Measurements Intervals [place] Rate: 84 P: 32 MN: 164 QRS: -9 QRSD: 100 T: 120 QT: 372 QTc: 413 Interpretive Statements 1100 Sinus rhythm 5234 Left ventricular hypertrophy with repolarization abnormality 9150 abnormal ECG Compared to ECG 10/16/2024 09:11:58 No significant changes Electronically Signed On 10-19-2024 13:49:25 EDT by MELANY CHEN M.D. Dictated By: MELANY CHEN Signed By: 10/19/24 1349 DD/ 36 TD/TT: Conversion Man: [place] [address] Electrocardiograph Report Signed Patient: BEVERLY PANCHAL MR#: [id number] : 1955 Acct:[id number] Age/Sex: 69 / M ADM Date: 10/18/24 Loc: MS 231-[address]: Elgin Klein M.D. Ordering Physician: Daren Mendoza D.O. 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 Measurements Intervals [place] Rate: 84 P: 32 MN: 164 QRS: -9 QRSD: 100 T: 120 QT: 372 QTc: 413 Interpretive Statements 1100 Sinus rhythm 5234 Left ventricula r hypertrophy with repolarization abnormality 9150 abnormal ECG Compared to ECG 10/16/2024 09:11:58 No significant changes Electronically Areli d On 10-19-2024 13:49:25 EDT by MELANY CHEN M.D. Dictated By: MELANY CHEN Signed By: 10/19/24 1349 DD/ 36 TD/TT: Conversion Man: Troponin I High Sensitivity Reviewed date:10/20/2024 03:22:57 PM Interpretation: Performing Lab: Notes/Report: [facility] , Troponin I High Sensitivity 13.4 4.0-76.1 pg/mL CUT-OFF POINTS HAVE BEEN ESTABLISHED BASED ON THE FOURTH UNIVERSAL DEFINITION OF MYOCARDIAL INFARCTION. THE UPPER REFERENCE LIMIT (URL) OF TROPONIN, DEFINED THE 99TH PERCENTILE OF cTnI DISTRIBUTION IN A REFERENCE POPULATION, HAS BEEN CONFIRMED THE DECISION THRESHOLD FOR OR DIAGNOSIS. 99TH PERCENTILE = 76.2 PG/ML NOTE: HIGH-SENSITIVITY TROPONIN ASSAY IS NOT INTENDED TO BE USED IN ISOLATION BUT SHOULD BE INTERPRETED IN CONJUNCTION WITH OTHER DIAGNOSTIC AND CLINICAL INFORMATION. Performing Lab: see note ML - [facility] CBC AUTO DIFF Reviewed date:10/20/2024 03:22:57 PM Interpretation: Performing Lab: Notes/Report: [facility] , White Blood Count 7.8 4.0-11.0 10 3/uL Red Blood Count 4.92 4.70-6.10 10 6/uL Hemoglobin 14.4 14.0-18.0 g/dL Hematocrit 40.6 42.0-54.0 % Mean Corpuscular Volume 82.5 80.0-94.0 fL Mean Corpuscular Hemoglobin 29.3 25.9-34.0 pg Mean Corpuscular HGB Conc 35.5 29.9-35.2 g/dL Red Cell Distribution Width 14.1 11.0-15.0 % Platelet Count 174 150-450 10 3/uL Mean Platelet Volume 10.0 9.5-13.5 fL Neutrophils Percent Auto 85.9 43.0-75.0 % Lymphocytes Percent Auto 8.7 20.5-60.0 % Monocytes Percent Auto 1.9 1.7-12.0 % Eosinophils Percent Auto 0.3 0.9-7.0 % Basophils Percent Auto 0.1 0.2-2.0 % Immature Granulocytes Pct Auto 3.1 0.0-0.5 % Neutrophils Absolute Auto 6.7 1.4-6.5 10 3/uL Lymphocytes Absolute Auto 0.7 1.2-3.8 10 3/uL Monocytes Absolute Auto 0.2 0.3-0.8 10 3/uL Eosinophils Absolute Auto 0.0 0.0-0.7 10 3/uL Basophils Absolute Auto 0.0 0.0-0.1 10 3/uL Immature Granulocytes Abs Auto 0.24 0.00-0.03 10 3/uL Performing Lab: see note ML - [facility] MAGNESIUM Reviewed date:10/20/2024 03:22:57 PM Interpretation: Performing Lab: Notes/Report: [facility] , Magnesium 2.1 1.8-2.4 mg/dL Performing Lab: see note ML - [facility] PROF 14(COMP METB) Reviewed date:10/20/2024 03:22:57 PM Interpretation: Performing Lab: Notes/Report: [facility] , Sodium 131 136-145 mmol/L Potassium 4.3 3.5-5.1 mmol/L Chloride 95 98-107 mmol/L Carbon Dioxide 26.0 21.0-32.0 mmol/L Anion Gap 14.3 Glucose 177 74-106 mg/dL Blood Urea Nitrogen 23.0 7.0-18.0 mg/dL Creatinine 0.93 0.70-1.30 mg/dL Estimated GFR ( Joyce >60 >=60 mL/min/1.73m 2 Estimated GFR (Non- Lulu >60 >=60 mL/min/1.73m 2 BUN Creatinine Ratio 24.7 Calcium 8.5 8.5-10.1 mg/dL Bilirubin Total 0.7 0.2-1.0 mg/dL Aspartate Amino Transferase 16 15-37 U/L Alanine Aminotransferase 31 16-63 U/L Alkaline Phosphatase 70 46-116 U/L Total Protein 6.3 6.4-8.2 g/dL Albumin Level 2.7 3.4-5.0 g/dL Globulin 3.6 Albumin Globulin Ratio 0.8 Performing Lab: see note ML - [facility] LB T4 Reviewed date:10/20/2024 03:22:57 PM Interpretation: Performing Lab: Notes/Report: [facility] , T4 Thyroxine 7.40 4.50-12.10 ug/dL Performing Lab: see note ML - [facility] LB TSH Reviewed date:10/20/2024 03:22:57 PM Interpretation: Performing Lab: Notes/Report: [facility] , Thyroid Stimulating Hormone 1.217 0.358-3.740 uIU/mL Performing Lab: see note ML - [facility] LB Troponin I High Sensitivity Reviewed date:10/20/2024 03:22:57 PM Interpretation: Performing Lab: Notes/Report: [facility] , Troponin I High Sensitivity 12.5 4.0-76.1 pg/mL CUT-OFF POINTS HAVE BEEN ESTABLISHED BASED ON THE FOURTH UNIVERSAL DEFINITION OF MYOCARDIAL INFARCTION. THE UPPER REFERENCE LIMIT (URL) OF TROPONIN, DEFINED THE 99TH PERCENTILE OF cTnI DISTRIBUTION IN A REFERENCE POPULATION, HAS BEEN CONFIRMED THE DECISION THRESHOLD FOR OR DIAGNOSIS. 99TH PERCENTILE = 76.2 PG/ML NOTE: HIGH-SENSITIVITY TROPONIN ASSAY IS NOT INTENDED TO BE USED IN ISOLATION BUT SHOULD BE INTERPRETED IN CONJUNCTION WITH OTHER DIAGNOSTIC AND CLINICAL INFORMATION. Performing Lab: see note ML - [facility] LB Troponin I High Sensitivity Reviewed date:10/20/2024 03:22:57 PM Interpretation: Performing Lab: Notes/Report: [facility] , Troponin I High Sensitivity 11.1 4.0-76.1 pg/mL CUT-OFF POINTS HAVE BEEN ESTABLISHED BASED ON THE FOURTH UNIVERSAL DEFINITION OF MYOCARDIAL INFARCTION. THE UPPER REFERENCE LIMIT (URL) OF TROPONIN, DEFINED THE 99TH PERCENTILE OF cTnI DISTRIBUTION IN A REFERENCE POPULATION, HAS BEEN CONFIRMED THE DECISION THRESHOLD FOR OR DIAGNOSIS. 99TH PERCENTILE = 76.2 PG/ML NOTE: HIGH-SENSITIVITY TROPONIN ASSAY IS NOT INTENDED TO BE USED IN ISOLATION BUT SHOULD BE INTERPRETED IN CONJUNCTION WITH OTHER DIAGNOSTIC AND CLINICAL INFORMATION. Performing Lab: see note ML - [facility] LB BNP Reviewed date:10/20/2024 03:22:57 PM Interpretation: Performing Lab: Notes/Report: [facility] , NT Pro B Type Natriuretic Pept 72.0 <=900.0 pg/mL Performing Lab: see note ML - [facility] LB PROF CHEM 8 (BAS LAMONT) Reviewed date:10/20/2024 03:22:57 PM Interpretation: Performing Lab: Notes/Report: [facility] , Sodium 134 136-145 mmol/L Potassium 4.2 3.5-5.1 mmol/L Chloride 97 98-107 mmol/L Carbon Dioxide 27.0 21.0-32.0 mmol/L Anion Gap 14.2 Glucose 163 74-106 mg/dL Blood Urea Nitrogen 30.0 7.0-18.0 mg/dL Creatinine 1.14 0.70-1.30 mg/dL Estimated GFR ( Joyce >60 >=60 mL/min/1.73m 2 Estimated GFR (Non- Lulu >60 >=60 mL/min/1.73m 2 BUN Creatinine Ratio 26.3 Calcium 8.9 8.5-10.1 mg/dL Performing Lab: see note ML - [facility] LB CBC AUTO DIFF (Not yet revie wed by provider) Interpretation: Performing Lab: Notes/Report: [facility] , White Blood Count 13.5 4.0-11.0 10 3/uL Red Blood Count 5.12 4.70-6.10 10 6/uL Hemoglobin 14.7 14.0-18.0 g/dL Hematocrit 42.4 42.0-54.0 % Mean Corpuscular Volume 82.8 80.0-94.0 fL Mean Corpuscular Hemoglobin 28.7 25.9-34.0 pg Mean Corpuscular HGB Conc 34.7 29.9-35.2 g/dL Red Cell Distribution Width 14.6 11.0-15.0 % Platelet Count 210 150-450 10 3/uL Mean Platelet Volume 10.0 9.5-13.5 fL Neutrophils Percent Auto 75.6 43.0-75.0 % Lymphocytes Percent Auto 14.0 20.5-60.0 % Monocytes Percent Auto 8.8 1.7-12.0 % Eosinophils Percent Auto 0.1 0.9-7.0 % Basophils Percent Auto 0.2 0.2-2.0 % Immature Granulocytes Pct Auto 1.3 0.0-0.5 % Neutrophils Absolute Auto 10.2 1.4-6.5 10 3/uL Lymphocytes Absolute Auto 1.9 1.2-3.8 10 3/uL Monocytes Absolute Auto 1.2 0.3-0.8 10 3/uL Eosinophils Absolute Auto 0.0 0.0-0.7 10 3/uL Basophils Absolute Auto 0.0 0.0-0.1 10 3/uL Immature Granulocytes Abs Auto 0.17 0.00-0.03 10 3/uL Performing Lab: see note - [facility] PROF CHEM 8 (BAS METB) (Not yet reviewed by provider) Interpretation: Performing Lab: Notes/Report: [facility] , Sodium 134 136-145 mmol/L Potassium 3.7 3.5-5.1 mmol/L Chloride 96 98-107 mmol/L Carbon Dioxide 27.3 21.0-32.0 mmol/L Anion Gap 14.4 Glucose 202 74-106 mg/dL Blood Urea Nitrogen 37.0 7.0-18.0 mg/dL Creatinine 1.37 0.70-1.30 mg/dL Estimated GFR ( Joyce >60 >=60 mL/min/1.73m 2 Estimated GFR (Non- Lulu 51 >=60 mL/min/1.73m 2 BUN Creatinine Ratio 27.0 Calcium 9.2 8.5-10.1 mg/dL Performing Lab: see note ML - [facility] Result 1 Reviewed date:10/20/2024 03:22:57 PM Interpretation: Performing Lab: Notes/Report: [facility] , Result 1 See Below For Report Result 1 Few gram positive cocci Performing Lab: see note LC - [facility] LB Epithelial Cells Reviewed date:10/20/2024 03:22:57 PM Interpretation: Performing Lab: Notes/Report: [facility] , Epithelial Cells See Below For Report Epithelial Cells Few Performing Lab: see note LC - [facility] LB White Blood Cells Reviewed date:10/20/2024 03:22:57 PM Interpretation: Performing Lab: Notes/Report: [facility] , White Blood Cells See Below For Report White Blood Cells White Blood Cells Few White Blood Cells Performing Lab: see note - [facility] LB Manual Differential Reviewed date:10/16/2024 12:36:43 PM Interpretation: Performing Lab: Notes/Report: [facility] , Segmented Neutrophils % Manual 79.0 43.0-75.0 Band Neutrophils % 1.0 0-5 % Lymphocytes Percent Manual 16.0 20.5-60.0 % Monocytes Percent Manual 2.0 1.7-12.0 % Eosinophils Percent Manual 2.0 0.9-7.0 % Basophils Percent Manual 0.0 0.2-2.0 % Segmented Neut Absolute Manual 9.48 1.4-6.5 10 3/uL Band Neutrophils Absolute 0.1 0.0-0.3 10 3/uL Lymphocytes Absolute Manual 1.92 1.20-3.80 10 3/uL Monocytes Absolute Manual 0.24 0.30-0.80 10 3/uL Eosinophils Absolute Manual 0.24 0.00-0.70 10 3/uL Basophils Abs Manual 0.00 0.00-0.10 1 0 3/uL Performing Lab: see note - [facility] CBC AUTO DIFF Reviewed date:10/16/2024 12:36:43 PM Interpretation: Performing Lab: Notes/Report: [facility] , White Blood Count 12.0 4.0-11.0 10 3/uL Red Blood Count 4.90 4.70-6.10 10 6/uL Hemoglobin 13.9 14.0-18.0 g/dL Hematocrit 41.4 42.0-54.0 % Mean Corpuscular Volume 84.5 80.0-94.0 fL Mean Corpuscular Hemoglobin 28.4 25.9-34.0 pg Mean Corpuscular HGB Conc 33.6 29.9-35.2 g/dL Red Cell Distribution Width 14.3 11.0-15.0 % Platelet Count 204 150-450 10 3/uL Mean Platelet Volume 9.7 9.5-13.5 fL Performing Lab: see note ML - [facility] BNP Reviewed date:10/16/2024 12:36:43 PM Interpretation: Performing Lab: Notes/Report: [facility] , NT Pro B Type Natriuretic Pept 304.0 <=900.0 pg/mL Performing Lab: see note - [facility] CA echo doppler complete Reviewed date:10/16/2024 12:36:43 PM Interpretation: Performing Lab: Notes/Report: Source Facility: [facility]-[address] [place] [address] [address] Cardiology Report Signed Patient: DEMARCUS PANCHAL MR#: [id number] : 1955 Acct:[id number] Age/Sex: 69 / M ADM Date: 10/09/24 Loc: [place] 219-[address]: Rk Klein M.D. Ordering Physician: Rk Klein M.D. Date of Service: 10/15/24 Procedure(s): CA echo doppler complete Accession Number(s): [id number] cc: Rk Klein M.D. Patient Name: DEMARCUS PANCHAL MR#: [id number] : 1955 Exam Date: 10/15/2024 Ordering Doctor: DR RK KLEIN . ECHOCARDIOGRAM REPORT PROCEDURE: CA ECHO DOPPLER COMPLETE INDICATIONS: Congestive heart failure, OR, cardiac stent, COPD, emphysema, hypertension COMPARISON: None. DESCRIPTION: COMPLETE ECHOCARDIOGRAM Real-time transthoracic echocardiography with 2D, M-mode, spectral and color flow Doppler performed. QUALITY: Technical quality was good. LEFT VENTRICLE: Mild dilatation. Mild eccentric left ventricular hypertrophy. There is global hypokinesis. Severely reduced systolic function. LV EF: Severely reduced left ventricular ejection fraction, (25%). DIASTOLIC: ATRIAL SEPTUM: Visually appears intact. LEFT ATRIUM: Normal chamber size. RIGHT ATRIUM: Mild dilatation. RIGHT VENTRICLE: Normal chamber size. Normal right ventricular systolic function. TRICUSPID VALVE: Normal mobility and thickness. No stenosis with trivial regurgitation. No evidence of pulmonary hypertension. RVSP 29 mmHg MITRAL VALVE: Normal mobility and thickness. No evidence of mitral valve stenosis. There is no mitral annular calcification. Mild mitral regurgitation. AORTIC VALVE: Normal trileaflet appearance. Thickened aortic valve. Normal leaflet mobility. No evidence of aortic valve stenosis. No aortic regurgitation. AORTIC ROOT: Normal diameter and appearance, measuring 3.4 cm. PULMONIC VALVE: Normal thickness and mobility. No stenosis. No regurgitation. PERICARDIUM: No evidence of pericardial effusion. IVC: Collapses with inspirations. PLEURA: CONCLUSION: 1. The left ventricle exhibits mild eccentric hypertrophy with severely reduced systolic function. Estimated LVEF is 25%. 2. Normal right ventricular size and systolic function. 3. Mild mitral regurgitation. 4. Normal right-sided pressures. Adult Echocardiography Procedure Report Left Ventricle LVEDD (3.7 - 5.6 cm): 6.27 cm LVESD (2.2 - 4.0 cm): 4.88 cm LVIVS thickness (0.6 - 1.2 cm): 1.12 cm LVPW thickness (0.5 - 1.0 cm): 1.30 cm e': 0.05 m/s E - e': 10.40 LVOT Max Gradient: 2.54 mm[Hg] LVOT Area (cm2): 0.80 m/s Peak Velocity (LVOT): 0.80 m/s Mean Velocity (LVOT): 0.53 m/s LVOT Diameter 2.13 cm Left Atrium LA Volume Index (2D A2C): 24.21 ml/m2 Left Atrium Systolic Dimension: 4.77 cm Mitral Valve MV E to A Ratio: 0.71 Mitral Valve A-Wave Peak Velocity: 0.74 m/s Mitral Valve E-Wave Peak Velocity: 0.53 m/s Right Ventricle Aorta AO Root Diam: 3.38 cm Aortic Valve AoV Area (Peak Remi): 2.24 cm2, 2.24 cm2 AoV Area (VTI): 2.17 cm2, 2.17 cm2 Peak Velocity(Antegrade Flow): 1.27 m/s Peak Gradient(Antegrade Flow): 6.41 mm[Hg] Mean Velocity(Antegrade Flow): 0.78 m/s Mean Gradient(Antegrade Flow): 2.93 mm[Hg] Velocity Time Integral: 28.29 cm Tricuspid Valve Peak Velocity (Regurgitant Flow): 2.55 m/s Pulmonic Valve Peak Velocity: 0.81 m/s Peak Gradient: 1.78 mm[Hg], 3.64 mm[Hg] Right Atrium Right Atrium Systolic Pressure: 55.29 ml, 55.29 ml Dictated by: Melany Chen M.D. on 10/15/2024 at 19:17 Approved by: Melany Chen M.D. on 10/15/2024 at 19:21 Dictated By: MELANY CHEN Signed By: 10/15/241921 DD/ 20 TD/TT: Conversion Man: [place] [address] Cardiology Report Signed Patient: BEVERLY PANCHAL MARTÍNEZ Garcia MR#: [id number] : 1955 Acct:[id number] Age/Sex: 69 / M ADM Date: 10/09/24 Loc: MS 219-[address]: Elgin Klein M.D. Ordering Physician: Rk Klein M.D. Date of Service: 10/15/24 Procedure(s): CA ech o doppler complete Accession Number(s): [id number] cc: Rk Klein M.D. Patient Name: DEMARCUS PANCHAL MR#: [id number] : 1955 Exam Date: 10/15/2024 Ordering Doctor: DR RK KLEIN . ECHOCARDIOGRAM REPORT PROCEDURE: CA ECHO DOPPLER COMPLETE INDICATIONS: Congest shaji heart failure, OR, cardiac stent, COPD, emphysema, hypertension COMPARISON: None. DESCRIPTION: COMPLET E ECHOCARDIOGRAM Real-time transthoracic echocardiography wit h 2D, M-mode, spectral and color flow Doppler performed. QUALITY: Technical quality was good. LEFT VENTRICLE: Mild dilatation. Mild eccentric left ventricular hypertrophy. There i s global hypokinesis. Severely reduced systolic function. LV EF: Severely redu daniel left ventricular ejection fraction, (25%). DIASTOLIC: ATRIAL SEPTUM: Visua lly appears intact. LEFT ATRIUM: Normal chamber size. RIGHT ATRIUM: Mild dilatation. RIGHT VENTRICLE: Nor mal chamber size. Normal right ventricular systolic function. TRICUSPID VALVE: Nor mal mobility and thickness. No stenosis with trivial regurgitation. No evidence of pulmonary hypertension. RVSP 29 mmHg MITRAL VALVE: Normal mobility and thickness. No evidence of mitral valve stenosis. There is n o mitral annular calcification. Mild mitral regurgitation. AORTIC VALVE: Normal trileaflet appearance. Thickened aortic valve. Normal leaflet mobil ity. No evidence of aortic valve stenosis. No aortic regurgitation. AORTIC ROOT: Normal diameter and appearance, measuring 3.4 cm. PULMONIC VALVE: Norm al thickness and mobility. No stenosis. No regurgitation. PERICARDIUM: No evid ence of pericardial effusion. IVC: Collapses with inspirations. PLEURA: CONCLUSION: 1. The left ventricl e exhibits mild eccentric hypertrophy with severely reduced systolic function. Estimated LVEF is 25%. 2. Normal right ventricular size and systolic function. 3. Mild mitral regurgitation. 4. Normal right-side d pressures. Adult Echocardiograp hy Procedure Report Left Ventricle LVEDD (3.7 - 5.6 cm) : 6.27 cm LVESD (2.2 - 4.0 cm) : 4.88 cm LVIVS thickness (0.6 - 1.2 cm): 1.12 cm LVPW thickness (0.5 - 1.0 cm): 1.30 cm e': 0.05 m/s E - e': 10.40 LVOT Max Gradient: 2 .54 mm[Hg] LVOT Area (cm2): 0.80 m/s Peak Velocity (LVOT) : 0.80 m/s Mean Velocity (LVOT) : 0.53 m/s LVOT Diameter 2.13 cm Left Atrium LA Volume Index (2D A2C): 24.21 ml/m2 Left Atrium Systolic Dimension: 4.77 cm Mitral Valve MV E to A Ratio: 0.71 Mitral Valve A-Wave Peak Velocity: 0.74 m/s Mitral Valve E-Wave Peak Velocity: 0.53 m/s Right Ventricle Aorta AO Root Diam: 3.38 cm Aortic Valve AoV Area (Peak Remi): 2.24 cm2, 2.24 cm2 AoV Area (VTI): 2.17 cm2, 2.17 cm2 Peak Velocity(Antegr my Flow): 1.27 m/s Peak Gradient(Antegr my Flow): 6.41 mm[Hg] Mean Velocity(Antegr my Flow): 0.78 m/s Mean Gradient(Antegr my Flow): 2.93 mm[Hg] Velocity Time Integr al: 28.29 cm Tricuspid Valve Peak Velocity (Regurgitant Flow): 2.55 m/s Pulmonic Valve Peak Velocity: 0.81 m/s Peak Gradient: 1.78 mm[Hg], 3.64 mm[Hg] Right Atrium Right Atrium Systoli c Pressure: 55.29 ml, 55.29 ml Dictated by: Melany Chen M.D. on 10/15/2024 at 19:17 Approved by: Melany Chen M.D. on 10/15/2024 at 19:21 Dictated By: MELANY CHEN Signed By: 10/15/241921 DD/ 20 TD/TT: Conversion Man: Manual Differential Reviewed date:10/15/2024 09:07:07 AM Interpretation: Performing Lab: Notes/Report: [facility] , Segmented Neutrophils % Manual 66.0 43.0-75.0 Lymphocytes Percent Manual 19.0 20.5-60.0 % Monocytes Percent Manual 9.0 1.7-12.0 % Eosinophils Percent Manual 1.0 0.9-7.0 % Basophils Percent Manual 0.0 0.2-2.0 % Atypical Lymphocytes % Manual 6.0 Segmented Neut Absolute Manual 7.65 1.4-6.5 10 3/uL Lymphocytes Absolute Manual 2.20 1.20-3.80 10 3/uL Monocytes Absolute Manual 1.04 0.30-0.80 10 3/uL Eosinophils Absolute Manual 0.11 0.00-0.70 10 3/uL Basophils Abs Manual 0.00 0.00-0.10 1 0 3/uL Atypical Lymphocytes Abs Man 0.69 Performing Lab: see note [facility] LB PROF CHEM 8 (BAS METB) Reviewed date:10/15/2024 09:07:07 AM Interpretation: Performing Lab: Notes/Report: [facility] , Sodium 138 136-145 mmol/L Potassium 3.1 3.5-5.1 mmol/L Chloride 95 98-107 mmol/L Carbon Dioxide 32.9 21.0-32.0 mmol/L Anion Gap 13.2 Glucose 142 74-106 mg/dL Blood Urea Nitrogen 27.0 7.0-18.0 mg/dL Creatinine 1.49 0.70-1.30 mg/dL Estimated GFR ( Joyce 56 >=60 mL/min/1.73m 2 Estimated GFR (Non- Lulu 46 >=60 mL/min/1.73m 2 BUN Creatinine Ratio 18.1 Calcium 8.8 8.5-10.1 mg/dL Performing Lab: see note ML [facility] LB CBC AUTO DIFF Reviewed date:10/15/2024 09:07:07 AM Interpretation: Performing Lab: Notes/Report: [facility] , White Blood Count 11.6 4.0-11.0 10 3/uL Red Blood Count 4.65 4.70-6.10 10 6/uL Hemoglobin 13.2 14.0-18.0 g/dL Hematocrit 38.6 42.0-54.0 % Mean Corpuscular Volume 83.0 80.0-94.0 fL Mean Corpuscular Hemoglobin 28.4 25.9-34.0 pg Mean Corpuscular HGB Conc 34.2 29.9-35.2 g/dL Red Cell Distribution Width 14.1 11.0-15.0 % Platelet Count 205 150-450 10 3/uL Mean Platelet Volume 9.7 9.5-13.5 fL Performing Lab: see note ML - [facility] LB BNP Reviewed date:10/15/2024 09:07:07 AM Interpretation: Performing Lab: Notes/Report: [facility] , NT Pro B Type Natriuretic Pept 426.0 <=900.0 pg/mL Performing Lab: see note ML - [facility] LB Lower Respiratory Culture Reviewed date:10/20/2024 03:22:57 PM Interpretation: Performing Lab: Notes/Report: [facility] , Lower Respiratory Culture See Below For Report Lower Respiratory Culture WILL FOLLOW Lower Respiratory Culture Performed at: [facility] Lower Respiratory Culture WILL FOLLOW Lower Respiratory Culture [address] [place] [phone] Lower Respiratory Culture WILL FOLLOW Lower Respiratory Culture Blueprint Developer: Valentin Avilez PhD, Phone: [phone] Lower Respiratory Culture WILL FOLLOW Performing Lab: see note LC - [facility] LB SEE REPORT - Ping Pong Table Assembler Id information not found for OBX-specific 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 Gram Stain Evaluation This specimen is of good quality and is acceptable for routine Performing Lab: see note LC - [facility] LB White Blood Cells Reviewed date:10/18/2024 11:43:47 AM Interpretation: Performing Lab: Notes/Report: [facility] , White Blood Cells See Below For Report White Blood Cells White Blood Cells None seen White Blood Cells Performing Lab: see note LC - [facility] LB XR chest 2V Reviewed date:10/13/2024 12:53:09 PM Interpretation: Performing Lab: Notes/Report: Source Facility: [facility]-[address] [place] [address] [place] [address] XRay Report Signed Patient: DEMARCUS PANCHAL MR#: [id number] : 1955 Acct:[id number] Age/Sex: 69 / M ADM Date: 10/09/24 Loc: MS 219-[address]: Rk Kleni M.D. Ordering Physician: Rk Klein M.D. Date of Service: 10/13/24 Procedure(s): XR chest 2V Accession Number(s): [id number] cc: Rk Klein M.D. [place] [address] Patient Name: DEMARCUS PANCHAL MRN: [id number] date: 1955 Sex: M Assigned Patient Location: MS Current Patient Location: NM Accession/Order Number: [id number] Exam Date: 10/13/2024 09:12 Report Date: 10/13/2024 09:13 At the request of: RK KLEIN MD Procedure: XR chest 2V XR chest 2V 10/13/2024 9:09 AM SIGNS AND SYMPTOMS: follow up pneumonia N PROTOCOL: Frontal and lateral radiographs of the chest COMPARISON: 10/11/2024 FINDINGS: The trachea is midline. The heart and mediastinal structures are within normal limits. Patchy airspace opacities are redemonstrated bilaterally consistent with a history of pneumonia. The bony thorax is intact. XR/XR chest 2V IMPRESSION: Patchy airspace opacities are redemonstrated bilaterally consistent with a history of pneumonia. Impression dictated by: Jb Garber M.D. 10/13/2024 9:13 AM Dictation Location: [place] [address] Electronically authenticated by: [id number] Y Date: 10/13/2024 09:13 Dictated By: Jb Garber M.D. Signed By: 10/13/24 1011 DD/ 2 TD/TT: Conversion Man: [place] [address] XRay Report Signed Patient: BEVERLY PANCHAL MR#: [id number] : 1955 Acct:[id number] Age/Sex: 69 / M ADM Date: 10/09/24 Loc: MS 219-[address]: Elgin Klein M.D. Ordering Physician: Rk Klein M.D. Date of Service: 10/13/24 Procedure(s): XR chest 2V Accession Number(s): [id number] cc: Rk Klein M.D. [place] [address] Patient Name: DEMARCUS PANCHAL MRN: [id number] date: 1955 Sex: M Assigned Patient Location: MS Current Patient Loca tion: MS Accession/Order Numb er: [id number] Exam Date: 10/13/2024 09:12 Report Date: 10/13/2024 09:13 At the request of: RK KLEIN MD Procedure: XR chest 2V XR chest 2V 9:09 AM SIGNS AND SYMPTOMS: follow up pneumonia N PROTOCOL: Frontal an d lateral radiographs of the chest COMPARISON: 10/11/2024 FINDINGS: The trachea is midli ne. The heart and mediastinal structures are within normal limits. Patch y airspace opacities are redemonstrated bilaterally consistent with a hi story of pneumonia. The bony thorax is intact. X R/XR chest 2V IMPRESSION: Patchy airspace opac ities are redemonstrated bilaterally consistent with a history of pneumonia. Impression dictated by: Jb Garber M.D. 10/13/2024 9:13 AM Dictation Location: [place] [address] Electronically authenticated by: [id number] Y Date: 10/13/2024 09:13 Dictated By: Jb Garber M.D. Signed By: 10/13/24 1011 DD/ 2 TD/TT: Conversion Man: BNP Reviewed date:10/13/2024 12:53:09 PM Interpretation: Performing Lab: Notes/Report: [facility] , NT Pro B Type Natriuretic Pept 1329.0 <=900.0 pg/mL RESULTS CALLED TO HANDY HAZEL RN @BY Leta Martin at 0627 Performing Lab: see note ML - [facility] LB PROF CHEM 8 (BAS METB) Reviewed date:10/12/2024 09:43:25 PM Interpretation: Performing Lab: Notes/Report: [facility] , Sodium 138 136-145 mmol/L Potassium 3.9 3.5-5.1 mmol/L Chloride 103 98-107 mmol/L Carbon Dioxide 25.9 21.0-32.0 mmol/L Anion Gap 13.0 Glucose 185 74-106 mg/dL Blood Urea Nitrogen 16.0 7.0-18.0 mg/dL Creatinine 0.93 0.70-1.30 mg/dL Estimated GFR ( Joyce >60 >=60 mL/min/1.73m 2 Estimated GFR (Non- Lulu >60 >=60 mL/min/1.73m 2 BUN Creatinine Ratio 17.2 Calcium 8.6 8.5-10.1 mg/dL Performing Lab: see note [facility] LB CBC AUTO DIFF Reviewed date:10/12/2024 09:43:25 PM Interpretation: Performing Lab: Notes/Report: [facility] , White Blood Count 12.6 4.0-11.0 10 3/uL Red Blood Count 4.06 4.70-6.10 10 6/uL Hemoglobin 11.6 14.0-18.0 g/dL Hematocrit 33.8 42.0-54.0 % Mean Corpuscular Volume 83.3 80.0-94.0 fL Mean Corpuscular Hemoglobin 28.6 25.9-34.0 pg Mean Corpuscular HGB Conc 34.3 29.9-35.2 g/dL Red Cell Distribution Width 14.2 11.0-15.0 % Platelet Count 189 150-450 10 3/uL Mean Platelet Volume 10.0 9.5-13.5 fL Neutrophils Percent Auto 89.5 43.0-75.0 % Lymphocytes Percent Auto 5.6 20.5-60.0 % Monocytes Percent Auto 3.7 1.7-12.0 % Eosinophils Percent Auto 0.1 0.9-7.0 % Basophils Percent Auto 0.1 0.2-2.0 % Immature Granulocytes Pct Auto 1.0 0.0-0.5 % Neutrophils Absolute Auto 11.3 1.4-6.5 10 3/uL Lymphocytes Absolute Auto 0.7 1.2-3.8 10 3/uL Monocytes Absolute Auto 0.5 0.3-0.8 10 3/uL Eosinophils Absolute Auto 0.0 0.0-0.7 10 3/uL Basophils Absolute Auto 0.0 0.0-0.1 10 3/uL Immature Granulocytes Abs Auto 0.12 0.00-0.03 10 3/uL Performing Lab: see note ML - [facility] LB Epithelial Cells Reviewed date:10/18/2024 11:43:47 AM Interpretation: Performing Lab: Notes/Report: [facility] , Epithelial Cells See Below For Report Epithelial Cells None seen Performing Lab: see note LC - [facility] LB White Blood Cells Reviewed date:10/14/2024 06:07:04 PM Interpretation: Performing Lab: Notes/Report: [facility] , White Blood Cells See Below For Report White Blood Cells White Blood Cells Test not performed. Specimen received frozen. White Blood Cells Performing Lab: see note LC - [facility] LB PROF CHEM 8 (BAS METB) Reviewed date:10/12/2024 09:43:25 PM Interpretation: Performing Lab: Notes/Report: [facility] , Sodium 132 136-145 mmol/L Potassium 4.3 3.5-5.1 mmol/L Chloride 99 98-107 mmol/L Carbon Dioxide 22.1 21.0-32.0 mmol/L Anion Gap 15.2 Glucose 171 74-106 mg/dL Blood Urea Nitrogen 14.0 7.0-18.0 mg/dL Creatinine 0.75 0.70-1.30 mg/dL Estimated GFR ( Joyce >60 >=60 mL/min/1.73m 2 Estimated GFR (Non- Lulu >60 >=60 mL/min/1.73m 2 BUN Creatinine Ratio 18.7 Calcium 9.0 8.5-10.1 mg/dL Performing Lab: see note - [facility] LB LACTATE or LACTIC ACID Reviewed date:10/09/2024 03:32:21 PM Interpretation: Performing Lab: Notes/Report: [facility] , Lactate/Lactic Acid 1.2 0.4-2.0 mmol/L Performing Lab: see note [facility] LB ECG 12 lead Reviewed date:10/09/2024 08:46:05 PM Interpretation: Performing Lab: Notes/Report: Source Facility: [place] [address] [place] [address] Electrocardiograph Report Signed Patient: DEMARCUS PANCHAL MR#: [id number] : 1955 Acct:[id number] Age/Sex: 69 / M ADM Date: 10/09/24 Loc: MS 219-[address]: Rk Klein M.D. Ordering Physician: Indra Bernard M.D. Date of Service: 10/09/24 Procedure(s): ECG 12 lead Accession Number(s): [id number] cc: 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 Measurements Intervals [place] Rate: 93 P: 39 MN: 166 QRS: -20 QRSD: 98 T: 75 QT: 340 QTc: 391 Interpretive Statements 1100 Sinus rhythm 4068 Nonspecific Twave abnormality 5233 Voltage criteria for LVH 0104 ELECTRODE(S) DETACHED ... Repeat ECG is requested 9150 abnormal ECG Compared to ECG 10/06/2024 11:59:44 No significant changes Electronically Signed On 10-09-2024 19:44:48 EDT by MELANY CHEN M.D. Dictated By: MELANY CHEN Signed By: 10/09/241944 DD/ 1129 TD/TT: Conversion Man: [place] [address] Electrocardiograph Report Signed Patient: BEVERLY PANCHAL MR#: [id number] : 1955 Acct:[id number] Age/Sex: 69 / M ADM Date: 10/09/24 Loc: MS 219-[address]: Elgin Klein M.D. Ordering Physician: Indra Bernard M.D. Date of Service: 10/09/24 Procedure(s): ECG 12 lead Accession Number(s): [id number] cc: 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 Measurements Intervals [place] Rate: 93 P: 39 MN: 166 QRS: -20 QRSD: 98 T: 75 QT: 340 QTc: 391 Interpretive Statements 1100 Sinus rhythm 4068 Nonspecific Twa ve abnormality 5233 Voltage criteri a for LVH 0104 ELECTRODE(S) DETACHED ... Repeat ECG is requested 9150 abnormal ECG Compared to ECG 10/06/2024 11:59:44 No significant changes Electronically Areli d On 10-09-2024 19:44:48 EDT by MELANY CHEN M.D. Dictated By: MELANY CHEN Signed By: 10/09/241944 DD/ 28 TD/TT: Conversion Man: SARS-CoV-2 Ag* Reviewed date:10/09/2024 03:32:21 PM Interpretation: Performing Lab: Notes/Report: [facility] , SARS-CoV-2 Ag NEGATIVE NEGATIVE This test has not been FDA cleared or approved, but has been authorized by the FDA under an Emergency Use Authorization (EUA) for use by authorized laboratories certified under CLIA that meet the requirements to perform moderate or high complexity testing. This test has been authorized only for the detection of proteins from SARS-CoV-2, not for any other viruses or pathogens. The emergency use of this test is authorized for the duration of the declaration that circumstances exist justifying the authorization of emergency use of in vitro diagnostic tests for detection and/or diagnosis of Covid-19 under section 564(b)(1) of the Act, 21 U.S.C. 360bbb-3(b)(1), unless the declaration is terminated or authorization is revoked sooner. Performing Lab: see note ML - [facility] LB Blood Culture 2 Reviewed date:10/14/2024 06:07:04 PM Interpretation: Performing Lab: Notes/Report: lac [facility] , Blood Culture 2 See Below For Report Blood Culture 2 NG5D NO GROWTH AT 5 DAYS.^NO GROWTH AT 5 DAYS. Performing Lab: see note - [facility] LB Blood Culture 1 Reviewed date:10/14/2024 06:07:04 PM Interpretation: Performing Lab: Notes/Report: rac [facility] , Blood Culture 1 See Below For Report Blood Culture 1 NG5D NO GROWTH AT 5 DAYS.^NO GROWTH AT 5 DAYS. Performing Lab: see note ML - [facility] LB RSV Reviewed date:10/09/2024 03:32:21 PM Interpretation: Performing Lab: Notes/Report: [facility] , Respiratory Syncytial Virus Not Detected NOT DETECTE Performing Lab: see note - [facility] PROF CHEM 8 (BAS METB) Reviewed date:10/09/2024 03:32:21 PM Interpretation: Performing Lab: Notes/Report: [facility] , Sodium 130 136-145 mmol/L Potassium 3.9 3.5-5.1 mmol/L Chloride 96 98-107 mmol/L Carbon Dioxide 23.5 21.0-32.0 mmol/L Anion Gap 14.4 Glucose 124 74-106 mg/dL Blood Urea Nitrogen 11.0 7.0-18.0 mg/dL Creatinine 1.11 0.70-1.30 mg/dL Estimated GFR ( Joyce >60 >=60 mL/min/1.73m 2 Estimated GFR (Non- Lulu >60 >=60 mL/min/1.73m 2 BUN Creatinine Ratio 9.9 Calcium 8.7 8.5-10.1 mg/dL Performing Lab: see note ML - [facility] LB LIVER PROFILE Reviewed date:10/09/2024 03:32:21 PM Interpretation: Performing Lab: Notes/Report: [facility] , Bilirubin Total 0.5 0.2-1.0 mg/dL Bilirubin Direct 0.1 0.0-0.2 mg/dL Aspartate Amino Transferase 34 15-37 U/L Alanine Aminotransferase 29 16-63 U/L Alkaline Phosphatase 65 46-116 U/L Total Protein 6.5 6.4-8.2 g/dL Albumin Level 2.7 3.4-5.0 g/dL Globulin 3.8 Albumin Globulin Ratio 0.7 Performing Lab: see note ML - [facility] LB LACTATE or LACTIC ACID Reviewed date:10/09/2024 03:32:21 PM Interpretation: Performing Lab: Notes/Report: [facility] , Lactate/Lactic Acid 2.9 0.4-2.0 mmol/L RESULT S CALLED TO VERONICA GARDINER RN at 1231 Performing Lab: see note ML - [facility] LB INFLUENZA A AND B AG Reviewed date:10/09/2024 03:32:21 PM Interpretation: Performing Lab: Notes/Report: [facility] , Influenza Virus A Antigen Negative Negative for Flu A protein antigen. Infection due to Flu A cannot be ruled out. Flu A antigen in the sample may be below the detection limit of the test. Influenza Virus B Antigen Negative Negative for Flu B protein antigen. Infection due to Flu B cannot be ruled out. Flu B antigen in the sample may be below the detection limit of the test. Performing Lab: see note ML - [facility] LB CBC AUTO DIFF Reviewed date:10/09/2024 03:32:21 PM Interpretation: Performing Lab: Notes/Report: [facility] , White Blood Count 9.4 4.0-11.0 10 3/uL Red Blood Count 4.67 4.70-6.10 10 6/uL Hemoglobin 13.4 14.0-18.0 g/dL Hematocrit 39.4 42.0-54.0 % Mean Corpuscular Volume 84.4 80.0-94.0 fL Mean Corpuscular Hemoglobin 28.7 25.9-34.0 pg Mean Corpuscular HGB Conc 34.0 29.9-35.2 g/dL Red Cell Distribution Width 14.4 11.0-15.0 % Platelet Count 179 150-450 10 3/uL Mean Platelet Volume 9.7 9.5-13.5 fL Neutrophils Percent Auto 78.2 43.0-75.0 % Lymphocytes Percent Auto 8.3 20.5-60.0 % Monocytes Percent Auto 9.6 1.7-12.0 % Eosinophils Percent Auto 3.0 0.9-7.0 % Basophils Percent Auto 0.4 0.2-2.0 % Immature Granulocytes Pct Auto 0.5 0.0-0.5 % Neutrophils Absolute Auto 7.4 1.4-6.5 10 3/uL Lymphocytes Absolute Auto 0.8 1.2-3.8 10 3/uL Monocytes Absolute Auto 0.9 0.3-0.8 10 3/uL Eosinophils Absolute Auto 0.3 0.0-0.7 10 3/uL Basophils Absolute Auto 0.0 0.0-0.1 10 3/uL Immature Granulocytes Abs Auto 0.05 0.00-0.03 10 3/uL Performing Lab: see note ML - [facility] LB ECG 12 lead Reviewed date:10/06/2024 02:02:37 PM Interpretation: Performing Lab: Notes/Report: Source Facility: [place] [address] Electrocardiograph Report Signed Patient: DEMARCUS PANCHAL MR#: [id number] : 1955 Acct:[id number] Age/Sex: 69 / M ADM Date: 10/06/24 Loc: ER Attending Dr: Ordering Physician: Indra Bernard M.D. Date of Service: 10/06/24 Procedure(s): ECG 12 lead Accession Number(s): [id number] cc: 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 Measurements Intervals [place] Rate: 85 P: 39 MN: 160 QRS: -7 QRSD: 98 T: 66 QT: 368 QTc: 411 Interpretive Statements 1100 Sinus rhythm 4068 Nonspecific Twave abnormality 5233 Voltage criteria for LVH 9150 abnormal ECG Compared to ECG 10/03/2024 17:40:37 No significant changes Electronically Signed On 10-06-2024 13:52:02 EDT by MELANY CHEN M.D. Dictated By: MELANY CHEN Signed By: 10/06/24 1352 DD/ 1159 TD/TT: Conversion Man: [place] [address] Electrocardiograph Report Signed Patient: BEVERLY PANCHAL MR#: [id number] : 1955 Acct:[id number] Age/Sex: 69 / M ADM Date: 10/06/24 Loc: ER Attending Dr: Ordering Physician: Indra Bernard M.D. Date of Service: 10/06/24 Procedure(s): ECG 12 lead Accession Number(s): [id number] cc: 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 Measurements Intervals [place] Rate: 85 P: 39 MN: 160 QRS: -7 QRSD: 98 T: 66 QT: 368 QTc: 411 Interpretive Statements 1100 Sinus rhythm 4068 Nonspecific Twa ve abnormality 5233 Voltage criteri a for LVH 9150 abnormal ECG Compared to ECG 10/03/2024 17:40:37 No significant changes Electronically Areli d On 10-06-2024 13:52:02 EDT by MELANY CHEN M.D. Dictated By: MELANY CHEN Signed By: 10/06/24 1352 DD/ 1159 TD/TT: Conversion Man: SARS-CoV-2 Ag* Reviewed date:10/06/2024 02:02:37 PM Interpretation: Performing Lab: Notes/Report: [facility] , SARS-CoV-2 Ag NEGATIVE NEGATIVE This test has not been FDA cleared or approved, but has been authorized by the FDA under an Emergency Use Authorization (EUA) for use by authorized laboratories certified under CLIA that meet the requirements to perform moderate or high complexity testing. This test has been authorized only for the detection of proteins from SARS-CoV-2, not for any other viruses or pathogens. The emergency use of this test is authorized for the duration of the declaration that circumstances exist justifying the authorization of emergency use of in vitro diagnostic tests for detection and/or diagnosis of Covid-19 under section 564(b)(1) of the Act, 21 U.S.C. 360bbb-3(b)(1), unless the declaration is terminated or authorization is revoked sooner. Performing Lab: see note ML - [facility] LB UA RANDOM W or MICROSCOPIC Reviewed date:10/06/2024 02:02:37 PM Interpretation: Performing Lab: Notes/Report: [facility] , Color Urine LT. YELLOW YELLOW Clarity Urine CLEAR CLEAR Specific [place]ler Urine 1.010 1.005-1.025 pH Urine 6.0 5.0-9.0 Protein Urine NEGATIVE NEG/TRACE mg/dL Glucose Urine UA NEGATIVE NEGATIVE mg/dL Bilirubin Urine NEGATIVE NEGATIVE Ketones Urine NEGATIVE NEGATIVE mg/dL Blood Urine NEGATIVE NEGATIVE Nitrite Urine NEGATIVE NEGATIVE Urobilinogen Urine 0.2 0.2-1.0 EU/dL Leukocyte Esterase Urine NEGATIVE NEGATIVE WBC Urine NONE SEEN NONE SEEN #/HPF RBC Urine 0-2 0-2 #/HPF Bacteria Urine NONE SEEN NONE SEEN #/HPF Mucus Urine NONE SEEN NONE SEEN Squamous Epithelial Cell Urine NONE SEEN NONE/RARE #/LPF Crystals Seen? None Seen None Seen #/HPF Cast Seen? NONE SEEN NONE SEEN #/LPF Performing Lab: see note - [facility] PROF CHEM 8 (BAS METB) Reviewed date:10/06/2024 02:02:36 PM Interpretation: Performing Lab: Notes/Report: [facility] , Sodium 133 136-145 mmol/L Potassium 4.4 3.5-5.1 mmol/L SPECIMEN IS S LIGHTLY HEMOLYZED Chloride 96 98-107 mmol/L Carbon Dioxide 26.0 21.0-32.0 mmol/L Anion Gap 15.4 Glucose 117 74-106 mg/dL Blood Urea Nitrogen 15.0 7.0-18.0 mg/dL Creatinine 0.99 0.70-1.30 mg/dL Estimated GFR ( Joyce >60 >=60 mL/min/1.73m 2 Estimated GFR (Non- Lulu >60 >=60 mL/min/1.73m 2 BUN Creatinine Ratio 15.2 Calcium 9.0 8.5-10.1 mg/dL Performing Lab: see note ML - [facility] LB INFLUENZA A AND B AG Reviewed date:10/06/2024 02:02:36 PM Interpretation: Performing Lab: Notes/Report: [facility] , Influenza Virus A Antigen Negative Negative for Flu A protein antigen. Infection due to Flu A cannot be ruled out. Flu A antigen in the sample may be below the detection limit of the test. Influenza Virus B Antigen Negative Negative for Flu B protein antigen. Infection due to Flu B cannot be ruled out. Flu B antigen in the sample may be below the detection limit of the test. Performing Lab: see note ML - [facility] CT chest high res Reviewed date:01/18/2024 08:25:49 AM Interpretation: Performing Lab: Notes/Report: Source Facility: [facility]-[address] [place] [address] CT Scan Report Signed Patient: DEMARCUS PANCHAL MR#: [id number] : 1955 Acct:[id number] Age/Sex: 69 / M ADM Date: 01/17/24 Loc: CT Attending Dr: Chalino Phoenix D.O. Ordering Physician: Chalino Phoenix D.O. Date of Service: 01/17/24 Procedure(s): CT chest high res Accession Number(s): [id number] cc: SERA FLOWER [place] [address] Patient Name: DEMARCUS PANCHAL MRN: [id number] date: 1955 Sex: M Assigned Patient Location: CT Current Patient Location: Accession/Order Number: [id number] Exam Date: 01/17/2024 07:55 Report Date: 01/18/2024 05:57 At the request of: CHALINO PHOENIX Procedure: CT chest high res EXAMINATION: CT chest high res HISTORY: Pulmonary Fibrosis COMPARISON: CT chest 12/24/2023 TECHNIQUE: Axial images were obtained at 10 mm intervals during inspiration and expiration in the supine and prone positions. No IV contrast given. Dose reduction techniques were achieved by using automated exposure control and/or adjustment of mA and/or kV according to patient size and/or use of iterative reconstruction technique. FINDINGS: LUNGS: Scattered areas of mild peripheral fibrosis. Minimal bronchiectasis. No significant emphysematous changes. Scattered areas of mild coarsening of interstitial markings. PLEURA: No mass, effusion, or pneumothorax. GIOVANNA: No mass or adenopathy. MEDIASTINUM: No mass or adenopathy. HEART: No significant enlargement or pericardial effusion.. Coronary arteries: AORTA: No aneurysm.. CHEST WALL: No mass or axillary adenopathy LIMITED ABDOMEN: No suspicious findings. Limited images of the upper abdomen. OTHER: Negative. CT/CT chest high res IMPRESSION: 1. No appreciable acute infiltrates. 2. Scattered areas of mild peripheral fibrosis and minimal chronic interstitial changes. Electronically authenticated by: ETHAN PALENCIA Date: 01/18/2024 05:57 Dictated By: Ethan Palencia M.D. Signed By: 01/18/24 06 DD/ TD/TT: Conversion Man: [place] [address] CT Scan Report Signed Patient: BEVERLY PANCHAL MR#: [id number] : 1955 Acct:[id number] Age/Sex: 69 / M ADM Date: 01/17/24 Loc: CT Attending Dr: Chalino Phoenix D.O. Ordering Physician: Chalino Phoenix D.O. Date of Service: 01/17/24 Procedure(s): CT jammie st high res Accession Number(s): [id number] cc: SERA FLOWER [place] [id number] Patient Name: DEMARCUS PANCHAL MRN: [id number] date: 1955 Sex: M Assigned Patient Location: CT Current Patient Location: Accession/Order Numb er: [id number] Exam Date: 01/17/2024 07:55 Report Date: 01/18/2024 05:57 At the request of: CHALINO PHOENIX Procedure: CT chest high res EXAMINATION: CT ches t high res HISTORY: Pulmonary Fibrosis COMPARISON: CT chest 12/24/2023 TECHNIQUE: Axial rico ges were obtained at 10 mm intervals during inspiration and expiration in the [place] and prone positions. No IV contrast given. Dose reduction techniques were achieved by using automated exposure control and/or adjustment of mA and /or kV according to patient size and/or use of iterative reconstruction technique. FINDINGS: LUNGS: Scattered are as of mild peripheral fibrosis. Minimal bronchiectasis. No significant emphysem atous changes. Scattered areas of mild coarsening of interstitial markings. PLEURA: No mass, effusion, or pneumothorax. GIOVANNA: No mass or adenopathy. MEDIASTINUM: No mass or adenopathy. HEART: No significan t enlargement or pericardial effusion.. Coronary arteries: AORTA: No aneurysm.. CHEST WALL: No mass or axillary adenopathy LIMITED ABDOMEN: No suspicious findings. Limited images of the upper abdomen. OTHER: Negative. C T/CT chest high res IMPRESSION: 1. No appreciable ac leah infiltrates. 2. Scattered areas o f mild peripheral fibrosis and minimal chronic interstitial changes. Electronically authenticated by: ETHAN PALENCIA Date: 01/18/2024 05:57 Dictated By: Ethan Palencia M.D. Signed By: 01/18/24599 DD/ 0557 TD/TT: Conversion Man: RT pulmonary function test Reviewed date:01/18/2024 08:26:19 AM Interpretation: Performing Lab: Notes/Report: Source Facility: [place] [address] Respiratory Report Signed Patient: DEMARCUS PANCHAL MR#: [id number] : 1955 Acct:[id number] Age/Sex: 69 / M ADM Date: 01/17/24 Loc: CT Attending Dr: Chalino Phoenix D.O. Ordering Physician: Chalino Phoenix D.O. Date of Service: 01/17/24 Procedure(s): RT pulmonary function test Accession Number(s): [id number] cc: 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 Findings were considered accurate and reproducible. Both pre- and post-bronchodilator values utilized for spirometry. Spirometry (based on pre-bronchodilator values): -FEV1/FVC: Normal @ 83 -FEV1: Mildly reduced @ 70% -FVC: Moderately reduced @ 62% -There is a positive bronchodilator response in FEV1 and FVC. Lung volumes by plethysmography (based on pre-bronchodilator values): -RV: Normal @ 104% -TLC: Normal @ 85% -Airway resistance: Increased -Airway conductance: Decreased Diffusion capacity: -DLCO: Moderate reduction @ 54% when corrected for Hb 15.1g/dL Flow-volume loop: -Mixed restrictive pattern with obstructive features Impressions: -Spirometry shows a moderate restrictive pattern, though TLC is normal - this can be seen in obesity (BMI 37.3). There are obstructive features present that appear to be obscured by the restriction, including a positive bronchodilator response, increased airway resistance and decreased conductance. There is a moderate diffusion impairment which may be associated with the stated history of pulmonary fibrosis. Clinical correlation required. Electronically Signed On 01-18-2024 8:07:55 EDT by Chalino Phoenix Dictated By: Chalino Phoenix D.O. Signed By: 01/18/24807 DD/ 7 TD/TT: Conversion Man: [place] [address] Respiratory Report Signed Patient: BEVERLY PANCHAL MR#: [id number] : 1955 Acct:[id number] Age/Sex: 69 / M ADM Date: 01/17/24 Loc: CT Attending Dr: Chalino Phoenix D.O. Ordering Physician: Chalino Phoenix D.O. Date of Service: 01/17/24 Procedure(s): RT pulmonary function test Accession Number(s): [id number] cc: [facility] Test Date: 2024-01-17 Pat Name: DEMARCUS FRANCO Ying Department: 94 Room: - Gender: Male Technic isael: Dennis Francisco RRT : 1955 Requ ested By: Chalino Phoenix Order Number: [id number] Reading MD: Chalino Phoenix Interpretive Statements Pulmonary function testing was completed according to ATS criteria. Findings were considered accu rate and reproducible. Both pre- and post-bronchodilator values utilized for spirometry. Spirometry (based on pre-bronchodilator values): -FEV1/FVC: Normal @ 83 -FEV1: Mildly reduce d @ 70% -FVC: Moderately red uced @ 62% -There is a positive bronchodilator response in FEV1 and FVC. Lung volumes by plethysmography (based on pre-bronchodilator values): -RV: Normal @ 104% -TLC: Normal @ 85% -Airway resistance: Increased -Airway conductance: Decreased Diffusion capacity: -DLCO: Moderate redu ction @ 54% when corrected for Hb 15.1g/dL Flow-volume loop: -Mixed restrictive pattern with obstructive features Impressions: -Spirometry shows a moderate restrictive pattern, though TLC is normal - this can be seen in obesi ty (BMI 37.3). There are obstructive features present that appear to be obscured by the restriction, including a positive bronchodilator respo nse, increased airway resistance and decreased conductance. There i s a moderate diffusion impairment which may be associated with the stated history of pulmonary fibrosis. Clinical correlation required. Electronically Areli d On 01-18-2024 8:07:55 EDT by Chalino Phoenix Dictated By: Sho Phoenix D.O. Signed By: 01/18/2408 DD/ TD/TT: Conversion Man: CBC AUTO DIFF Reviewed date:10/06/2024 02:02:37 PM Interpretation: Performing Lab: Notes/Report: [facility] , White Blood Count 9.6 4.0-11.0 10 [...] Performing Lab: see note ML - [facility] LB CBC AUTO DIFF Reviewed date:10/20/2024 03:22:57 PM Interpretation: Performing Lab: Notes/Report: [facility] , White Blood Count 15.2 4.0-11.0 10 3/uL Red Blood Count 4.94 4.70-6.10 10 6/uL Hemoglobin 14.0 14.0-18.0 g/dL Hematocrit 41.3 42.0-54.0 % Mean Corpuscular Volume 83.6 80.0-94.0 fL Mean Corpuscular Hemoglobin 28.3 25.9-34.0 pg Mean Corpuscular HGB Conc 33.9 29.9-35.2 g/dL Red Cell Distribution Width 14.5 11.0-15.0 % Platelet Count 172 150-450 10 3/uL Mean Platelet Volume 10.3 9.5-13.5 fL Neutrophils Percent Auto 80.5 43.0-75.0 % Lymphocytes Percent Auto 9.0 20.5-60.0 % Monocytes Percent Auto 8.6 1.7-12.0 % Eosinophils Percent Auto 0.1 0.9-7.0 % Basophils Percent Auto 0.1 0.2-2.0 % Immature Granulocytes Pct Auto 1.7 0.0-0.5 % Neutrophils Absolute Auto 12.2 1.4-6.5 10 3/uL Lymphocytes Absolute Auto 1.4 1.2-3.8 10 3/uL Monocytes Absolute Auto 1.3 0.3-0.8 10 3/uL Eosinophils Absolute Auto 0.0 0.0-0.7 10 3/uL Basophils Absolute Auto 0.0 0.0-0.1 10 3/uL Immature Granulocytes Abs Auto 0.26 0.00-0.03 10 3/uL Performing Lab: see note ML - [facility] LB Gram Stain Evaluation Reviewed date:10/20/2024 03:22:57 PM Interpretation: Performing Lab: Notes/Report: [facility] , Gram Stain Evaluation See Below For Report Gram Stain Evaluation This specimen is of good quality and is acceptable for routine Gram Stain Evaluation bacterial culture. 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 Result 3 *ABNORMAL* Performing Lab: see note LC - [facility] LB Result 2 Reviewed date:10/20/2024 03:22:57 PM Interpretation: Performing Lab: Notes/Report: [facility] , Result 2 See Below For Report Result 2 Few budding yeast present. Performing Lab: see note LC - [facility] LB Reason For Referral No Information Medications Medication SIG (Take, Route, Frequency, Duration) Notes Start Date End Date Status Albuterol Sulfate (2.5 MG/3ML) 0.083% Inhalation for 90 Days Act shaji Omeprazole 20 MG Oral for 90 Days Active [place] 3 Active Carvedilol 6.25 MG Oral for 90 Days Active Turmeric Active Albuterol Sulfate HFA 108 (90 Base) MCG/ACT Inhalation for 90 Days Active Tamsulosin HCl 0.4 MG 1 capsule Orally O nce a day 10/02/2024 Active Cayenne Pepper Activ e Vitamin C 100 MG 1 tablet Orally Once a day 2024 Active Fish Oil 1200 MG 1 capsule Orally Onc e a day 10/02/2024 Active Vitamin E 268 MG (400 UNIT) 1 capsule Orally Once a day 10/02/2024 Active Vitamin D 50 MCG (2000 UT) 1 tablet Orally Once a day 10/02/2024 Active Ipratropium-Albuterol 0.5-2.5 (3) MG/3ML Inhalation for 8 Days Active Zinc 50 MG 1 tablet Orally Once a day 10/02/2024 Active Nasonex 24HR 50 MCG/ACT 4 sprays (2 spra ys in each nostril) Nasally Once a day 10/02/2024 Active Magnesium 300 MG 1 capsule with a sean l Orally Once a day 10/02/2024 Active Advair HFA 115-21 MCG/ACT 2 puffs Inhala tion Twice a day 10/02/2024 Active Immunizations Vaccine Route Administration Date Status Comme nts Flu, Fluad (65973) 65 yrs + Trivalent (8541-1468) Unknown 04/16/2019 Administered Pneumococcal (Prevnar 13) Unknown 08/16/2018 Administer ed Tdap (Boostrix) Unknown 08/10/2017 Administered Zoster (Zostavax) Unknown 12/21/2016 Administered Social History Tobacco Use: Social History Observation Description Date Details (start date - stop date) Former Smoker NA - NA Tobacco Control (Standard) Question Answer Notes Tobacco use: Former smoker How long has it been since y ou last smoked? Greater than 10 years Additional Findings: Tobacco non-user Ex -moderate cigarette smoker (10-19/day) Problems Problem Type SNOMED Code ICD Code Onset Dates Problem Status W/U Status Risk Notes Problem Gastro-esophageal reflux disease without esophagitis (543171932) Gastro-esophageal reflux disease without esophagitis (K21.9) Active confirmed Problem 300527992 Obesity, unspecified (E66.9) Active confirmed Problem 760497636 Moderate persistent asthma, uncomplicated (J45.40) Active confirmed Problem Pulmonary fibrosis (24493084) Pulmonary fibrosis, unspecified (J84.10) Active confirmed Problem Long-term current use of inhaled steroid (773165603) jail (current) use of inhaled steroids (Z79.51) Active confirmed Problem COPD - Chronic obstructive pulmonary disease (28730854) COPD (chronic obstructive pulmonary disease) (J44.9) Active confirmed Problem Coronary artery disease (76789199) CAD (coronary artery disease) (I25.10) Active confirmed Problem Benign prostatic hyperplasia (988956674) BPH (benign prostatic hyperplasia) (N40.0) Active confirmed Problem Bronchiectasis (14301239) Bronchiectasis (J47.9) Active confirmed Problem Ex-tobacco user (finding) (572333334) History of tobacco abuse (Z87.891) Active confirmed Problem Nrnjc-7-bydmpynah in phenotype PiMS (finding) (396174283) Alpha 1-antitrypsin PiMS phenotype (Z14.8) Active confirmed Problem Chronic cqrk-TQEDG-69 syndrome (disorder) (0398556358) 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, quit 1995 Problem Peripheral eosinophilia (D72.19) Active confirmed Vital Signs Heart Rate 71 /min 05/07/2024 Temperature 96.6 degrees Fahrenheit 05/07/2024 Respiratory Rate 20 /min 05/07/2024 Oximetry 96 % 05/07/2024 Blood pressure diastolic 70 mm Hg 10/02/2024 Height 68 in 10/02/2024 Blood pressure systolic 126 mm Hg 10/02/2024 Weight 231.4 lbs 10/02/2024 BMI 35.18 kg/m2 10/02/2024 Encounters Encounter Location Date Provider Diagnosis [facility] [address] [place] [address] 01/29/2024 Chalino Phoenix COPD (chronic obstructive pulmonary disease) J44.9 ; Moderate persistent asthma, uncomplicated J45.40 ; Pulmonary fibrosis, unspecified J84.10 ; Bronchiectasis J47.9 ; Peripheral eosinophilia D72.19 ; Alpha 1-antitrypsin PiMS phenotype Z14.8 ; Post-COVID syndrome B94.8 ; CAD (coronary artery disease) I25.10 ; History of tobacco abuse Z87.891 ; jail (current) use of inhaled steroids Z79.51 ; Obesity, unspecified E66.9 and Body mass index [BMI] 35.0-35.9, adult Z68.35 [facility] [address] [place] [address] 05/07/2024 Chalino Phoenix Bronchiectasis J47.9 ; Moderate persistent asthma, uncomplicated J45.40 ; Pulmonary fibrosis, unspecified J84.10 ; Candidal stomatitis B37.0 ; Peripheral eosinophilia D72.19 ; COPD (chronic obstructive pulmonary disease) J44.9 ; Alpha 1-antitrypsin PiMS phenotype Z14.8 ; CAD (coronary artery disease) I25.10 ; History of tobacco abuse Z87.891 ; 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 and Obesity, unspecified E66.9 [facility] [address] [place] [address] 10/02/2024 Tin Ramónalmaz COPD (chronic obstructive pulmonary disease) J44.9 ; CAD (coronary artery disease) I25.10 ; Pulmonary fibrosis, unspecified J84.10 ; Moderate persistent asthma, uncomplicated J45.40 ; BPH (benign prostatic hyperplasia) N40.0 and Gastro-esophageal reflux disease without esophagitis K21.9 [facility] [address] [place] [address] 11/15/2023 [facility] [address] [place] [address] 12/31/2023 [facility] [address] [place] [address] 01/31/2024 [facility] [address] [place] [address] 10/05/2024 Tin Ramónalmaz jail (current) use of inhaled steroids Z79.51 and Hyponatremia E87.1 [facility] [address] [place] [address] 10/09/2024 Tin Klein [facility] [address] [place] [address] 10/10/2024 Tin Klein Assessments Encounter Date Diagnosis (ICD Code) Assessment Notes Treatment Notes Treatment Clinical Notes Section Notes 01/29/2024 COPD (chronic obstructive pulmonary disease) (ICD-10 - J44.9) Asthma-COPD overlap as above. AAT is a normal variant at NM. 05/07/2024 Bronchiectasis (ICD-10 - J47.9) HRCT 01/17/2024: Bronchiectasis Patient has responded favorably to saline nebs which have been able to mobilize secretions well. Patient was encouraged to continue using them twice daily. Continue using PEP. 10/02/2024 COPD (chronic obstructive pulmonary disease) (ICD-10 - J44.9) 10/02/2024 CAD (coronary artery disease) (ICD-10 - I25.10) stqbe - no CP 10/05/2024 jail (current) use of inhaled steroids (ICD-10 - Z79.51) 10/05/2024 Hyponatremia (ICD-10 - E87.1) 10/02/2024 Pulmonary fibrosis, unspecified (ICD-10 - J84.10) stabel 01/29/2024 Moderate persistent asthma, uncomplicated (ICD-10 - J45.40) Prior treatment: Breztri > Trelegy, Advair, Symbicort + Spiriva The patient remains symptomatic with daily productive cough despite Breztri. When comparing spirometry's, there has been a decline over the past 3 years; values from 11/30/2020 compared to 01/17/2024 are as follows: -FEV1: 85% (2.65L) -> 70% (2L) -FVC: 89% (3.75L) -> 62% (2.42L) Despite the restrictive pattern developed on spirometry 01/17/2024, this is not confirmed as total lung capacity is normal at 85%. However, there is a moderately severe diffusion impairment of 54%. Unable to compare this with the prior study is only simple spirometry is done in 2020. Discussed options with the patient regarding his symptoms, mainly the productive cough. This may be due to underlying bronchiectasis opposed to asthma/COPD. Options are as follows: -Biologic therapy (anti IL-5) to treat the asthmatic component -Ohtuvayre (ensifentine), a novel PDE3/PDE4 inhibitor, to treat the COPD component -Pulmonary toilet to treat the bronchiectasis component Each of these options were explained to the patient. As the cough is the major symptom, suggested treating for bronchiectasis to start. Explained the concept of a pulmonary toilet. He states he has a PEP but is not using it. He is instructed to use this is much as possible, ideally 10 times an hour. Will also add sodium chloride nebs on top of the PAP. Suggested he dropped a regimen of using the sodium chloride neb first, followed BiPAP, and then Breztri to optimize his breathing. The patient will return in 3 months to evaluate his response to this regimen. 01/29/2024 Pulmonary fibrosis, unspecified (ICD-10 - J84.10) Worsening in fibrosis on chest CT 07/22/2023 compared to 02/18/2018. Fibrosis does not seem to advanced significantly based on HRCT from 01/17/2024. Given symptoms, recommend continued following with annual PFT and HRCT. 05/07/2024 Moderate persistent asthma, uncomplicated (ICD-10 - J45.40) Prior treatment: Breztri > Trelegy, Advair, Symbicort + Spiriva Last visit, he was symptomatic despite Breztri. Cough has improved with addition of saline nebs. However, he is now back to Advair which previously was less effective than Breztri? He claims Breztri was too strong though he cannot describe what he means by this. Additionally, he sounds more tight today and is having to use albuterol more often. As he was nearly precipice of starting biologic therapy last visit, I suggested the patient return to [facility] and see how he responds. He has developed oral candidiasis while on Advair, so he was counseled again to rinse and gargle aggressively after using any inhaled steroid. Patient is to follow-up in 6 months for longitudinal evaluation. 05/07/2024 Pulmonary fibrosis, unspecified (ICD-10 - J84.10) Worsening in fibrosis on chest CT 07/22/2023 compared to 02/18/2018. Fibrosis does not seem to advanced significantly based on HRCT from 01/17/2024. F/U PFT & HRCT due 12/2024. 05/07/2024 Candidal stomatitis (ICD-10 - B37.0) Secondary to Advair. Patient states he rinses after using inhalers with Listerine. Patient was advised to also gargle after use. Rx'd Nystatin. 01/29/2024 Bronchiectasis (ICD-10 - J47.9) As above under asthma. Discussed the importance of a pulmonary toilet with the identification of bronchiectasis on HRCT 01/17/2024. He has a PEP he was instructed to use this as often as possible. He elected to proceed with sodium chloride 0.9% nebs to help break down mucus and facilitate expectoration. Will reassess patient after utilizing this therapy; if he fails it, he could be a vest candidate. Zgsh-xk-yihi encounter performed with the patient to document need for a nebulizer with nebulized medications. -Prescribing sodium chloride 0.9%, which is only administered via nebulizer for pulmonary conditions -He was instructed to use the sodium chloride twice daily along with PEP device 10/02/2024 Moderate persistent asthma, uncomplicated (ICD-10 - J45.40) stabel on meds - refil advair 10/02/2024 BPH (benign prostatic hyperplasia) (ICD-10 - N40.0) 01/29/2024 Peripheral eosinophilia (ICD-10 - D72.19) CBC 07/22/2023 notes elevated eosinophil count 14.4% / abs ct 1.0. Eosinophils remain elevated 08/22/2023 @ 9.6% /abs ct. 0.6. Discussed that anti-IL-5 therapy is a consideration in the future. 05/07/2024 Peripheral eosinophilia (ICD-10 - D72.19) Eosinophils: -08/22/2023: 9.6% / 600 -07/22/2023: 14.4% / 1000 I do not feel the patient is adequately controlled on Advair alone. He additionally stated in the past that Advair was less effective than Breztri. He also continues to exhibit expiratory wheezes on examination. Patient was instructed to resume Breztri and stop Advair. If remains symptomatic in the future, will discuss biologic therapy again. 01/29/2024 Alpha 1-antitrypsin PiMS phenotype (ICD-10 - Z14.8) Patient has normal variant alpha1-antitrypsin phenotype MS. This in itself will not cause or typically contribute to emphysema. If the patient has any children, offer was made to provide testing kits so they can be tested to assess if they are carriers. 10/02/2024 Gastro-esophageal reflux disease without esophagitis (ICD-10 - K21.9) 05/07/2024 COPD (chronic obstructive pulmonary disease) (ICD-10 - J44.9) Asthma-COPD overlap. 05/07/2024 Alpha 1-antitrypsin PiMS phenotype (ICD-10 - Z14.8) Patient has normal variant alpha1-antitrypsin phenotype MS. This in itself will not cause or typically contribute to emphysema. If the patient has any children, offer was made to provide testing kits so they can be tested to assess if they are carriers. 01/29/2024 Post-COVID syndrome (ICD-10 - B94.8) 1/2ppd x 25 years, quit 199501/29/2024 CAD (coronary artery disease) (ICD-10 - I25.10) ? contribution to dyspnea? 05/07/2024 CAD (coronary artery disease) (ICD-10 - I25.10) ? contribution to dyspnea? 05/07/2024 History of tobacco abuse (ICD-10 - Z87.891) 1/2ppd x 25 years, quit 1995 This patient does not meet current LDCT criteria (e.g. age, time from cessation, # pack-years). 01/29/2024 History of tobacco abuse (ICD-10 - Z87.891) This patient does not meet current LDCT criteria (e.g. age, time from cessation, # pack-years). 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 05/07/2024 jail (current) use of inhaled steroids (ICD-10 - Z79.51) Patient was counseled to rinse & gargle with water after inhaled corticosteroid use. 05/07/2024 Obesity, unspecified (ICD-10 - E66.9) Patient's weight is inducing a restrictive pulmonary physiology. Weight loss indicated: Decrease calories, increase activity. 01/29/2024 Obesity, unspecified (ICD-10 - E66.9) Patient's weight is inducing a restrictive pulmonary physiology. Weight loss indicated: Decrease calories, increase activity. 01/29/2024 Body mass index [BMI] 35.0-35.9, adult (ICD-10 - Z68.35) 01/29/2024 Other Plan Of Treatment Pending Test Test Name Order Date CMP - Comprehensive Metabolic Panel 09/25 CBC AUTO DIFF 10/21/2024 PROF CHEM 8 (BAS METB) 10/21/2024 Next Appt Details Provider Name:Chalino Phoenix, 11/05/2024 09:00:00 AM, [address] [place], [address], Provider Name:Tin Klein, 08:00:00 AM, [address] [place], [address], Insurance Providers Payer Name Payer Address Payer Phone Subscriber Number Group Number Insured Name Patient Relationship to Insured Coverage Start Date Coverage End Date [employer] MEDICARE ADV PLAN [address] [address] [place] [address] [phone] [id number] Demarcus Panchal Self - patient is the insured [facility] CLAIM[facility] [address] [place] [address] [phone] [id number] Demarcus Panchal Self - patient is the insured Medical (General) History Medical History History ICD Code COPD (chronic obstructive pulmonary dise ase) J44.9 Pulmonary fibrosis, unspecified J84.10 Post-COVID syndrome B94.8 HLD (hyperlipidemia) E78.5 Peripheral eosinophilia D72.19 GERD (gastroesophageal reflux disease) K 21.9 CAD (coronary artery disease) I25.10 HTN (hypertension) I10 Bronchiectasis J47.9 Alpha 1-antitrypsin PiMS phenotype Z14.8 jail (current) use of inhaled stero ids Z79.51 History of tobacco abuse Z87.891 Surgical History Surgery Date(Month/Year) coronary artery stent placement percutaneous transluminal coronary angio plasty shoulder surgery-right sinus surgery-polyps Hospitalization History Reason Date(Month/Year) Acute Exacerbation of COPD-[facility] 4
--- OUTSIDE RECORDS SUMMARY | 2024-10-21 07:23 | XMS_ITS | Clinical Summary ---
Author Organization [facility] Address [address] [place] [address] Care Team Providers Care Shop Mechanic Helper Name Role Phone Chun Hobbs MD Primary Care Provider [phone] Allergies Active Allergy Reactions Criticality Noted Date Comments Codeine Hallucinations 10/16/2023 Medications omeprazole (PRILOSEC) 10 MG delayed release capsule Take 1 capsule by mouth daily Active Budeson-Glycopy rrol-Formoterol (BREZTRI AEROSPHERE) 160-9-4.8 MCG/ACT AERO Inhale into the lungs Active losartan (COZAAR) 25 MG tablet Take 1 tablet by mouth daily Active tamsulosin (FLOMAX) 0.4 MG capsule Take 1 capsule by mouth daily Active carvedilol (COREG) 6.25 MG tablet Take 1 tablet by mouth 2 times daily (with meals) Active ALBUTEROL SULFATE PO Take by mouth Activ e albuterol (PROVENTIL) (2.5 MG/3ML) 0.083% nebulizer solution Take 3 mLs by nebulization every 6 hours as needed for Wheezing Active Mometasone Furoate (NASONEX NA) by Nasal route Ac tive Social History Tobacco Use Types Packs/Day Years Used Date Smoking Tobacco: Former Cigarettes 0 05/28/1992 - 05/28/1970 Smokeless Tobacco: Never Sex and Gender Information Value Date Recorded Sex Assigned at Not on file Legal Sex Male 2:14 PM EST Gender Identity Not on file Sexual Orientation Not on file Last Filed Vital Signs Vital Sign Reading Time Taken Comments Blood Pressure 105/62 10/16/2023 9:59 AM EDT Pulse 69 10/16/2023 9:59 AM EDT Temperature - - Respiratory Rate 18 10/16/2023 9:59 AM EDT Oxygen Saturation 96% 10/16/2023 9:59 AM EDT ra Inhaled Oxygen Concentration - - Weight 105.2 kg (232 lb) 10/16/2023 9:59 AM EDT Height 172.7 cm (5' 8 ) 10/16/2023 9:59 AM EDT Body Mass Index 35.28 10/16/2023 9:59 AM EDT Plan of Treatment Health Maintenance Due Date Last Done Comments Depression Screen 1965 Hepatitis C screen 1971 Lipids 1993 Colonoscopy 1998 Colorectal Cancer Screen 1998 FIT/FOBT: Average risk 1998 Fecal-DNA (Cologuard): Average risk 1998 Sigmoidoscopy/CT colonography 1998 Respiratory Syncytial Virus (RSV) or age 60 yrs+ (1 - Risk 60-74 years 1-dose series) 2013 Shingles vaccine (2 of 3) 02/15/2017 12/21/2016 AAA screen 2018 COVID-19 Vaccine ( - season) 2024 Annual Wellness Visit (Medicare Advantage) 05/28/2024 Flu vaccine (Season Ended) 12/26/202404/16, 03/28/2019, 08/16/2018, Additional history exists DTaP/Tdap/Td vaccine (2 - Td or Tdap) 08/11/2027 08/10/2017, 2007 Pneumococcal 50+ years Vaccine Completed 08/16/2018, 05/28/2018, 09/30/2012, Additional history exists Hepatitis A vaccine Aged Out No longe r eligible based on patient's age to complete this topic Hepatitis B vaccine Aged Out No longe r eligible based on patient's age to complete this topic Hib vaccine Aged Out No longer eligi ble based on patient's age to complete this topic Meningococcal (ACWY) vaccine Aged Out No longer eligible based on patient's age to complete this topic Meningococcal B vaccine Aged Out No l onger eligible based on patient's age to complete this topic Polio vaccine Aged Out No longer elig ible based on patient's age to complete this topic Insurance [facility] MEDICARE MEDICARE SUPP Care Teams Shop Mechanic Helper Relationship Specialty Start Date End Date Chun Hobbs MD [address] [place] [address] PCP - General 10/15/23
--- OUTSIDE RECORDS SUMMARY | 2024-10-21 07:23 | XMS_ITS | Encounter Summary ---
Author Organization [facility] Address [address] [place] [address] Care Team Providers Care Assembler 1St Shift Name Role Phone Chun Hobbs MD Unavailable [phone] Chun Hobbs MD Primary Care Provider [phone] Tootie Jacobson RN Unavailable [phone] Rene Castro MD Unavailable [phone] Orquidea Carreon RN Unavailable [phone] Orquidea Shah RN Unavailable Unavailable Evens Morgan DO Unavailable [phone] John Baptiste MD Unavailable [phone] Jessica Jenkins AGRICULTURE SCIENTIST Unavailable [phone] Unallocated, Noms Provider Primary Care Provi gonzales Torres Klein MD Primary Care Provider [phone] Encounter Details Date Type Department Care Team (Late st Contact Info) Description 12/24/2023 Orders Only [facility] [address] [facility] [address] [place] [id number] A, Unknown Practice [address] [place] [address] Social History Tobacco Use Types Packs/Day Years [...] Start Date Job End Date retired- [employer] (21 yrs), Not on file Not on fi le Not on file documented as of this encounter Plan of Treatment Not on file documented as of this encounter Procedures Procedure Name Priority Date/Time Associated Diagnosis Comments CT CHEST WO IV CONTRAST Routine 12/24/2023 11:37 AM EDT XR CHEST 1 VIEW Routine 12/24/2023 11:20 AM EDT documented in this encounter Results * CT chest wo IV contrast (12/24/2023 11:37 AM EDT) Anatomical Region Laterality Modality Body, Chest Computed Tomogra phy us Unknown Practice A IMG CT PROCEDURES Final Resul t * XR chest 1 view (12/24/2023 11:20 AM EDT) Anatomical Region Laterality Modality Chest Radiographic Maribel ging us Unknown Practice A IMG XR PROCEDURES Final Resul t documented in this encounter Visit Diagnoses Not on filedocumented in this encounter Additional Health Concerns Assessment Noted Time PHQ-9 Depression Total Score: 1 09/20/19 24 1:00 PM EDT A fall risk assessment has been complete d for the patient 08/10/2023 1:18 PM EDT documented as of this encounter Care Teams Assembler 1St Shift Relationship Specialty Start Date End Date Chun Hobbs MD [address] [place] [address] PCP - [employer] 05/28/22 Chun Hobbs MD [address] [place] [address] PCP - General Internal Medicine 10/03/22 10/06/24 Unallocated, Noms Provider, [place] [address] PCP - General Family Medicine 10/07/24 10/16/24 Torres Klein MD [address] [facility] [place] [address] PCP - General Family Medicine 10/17/24 Tootie Jacobson RN [address] [place] [address] Registered Nurse Internal Medicine 08/10/23 03/28/24 Rene Castro MD [address] [facility] [address] [place] [address] Referring Physician Cardiology 09/05/23 Orquidea Carreon, DOUG Registered Nurse Family Medicine 03/28/24 06/03/24 Orquidea Shah RN Registered Nurse Internal Medicine 06/03/24 10/07/24 Evens Morgan DO [address] [facility] [address] [place] [address] Referring Physician Pulmonary Disease 09/24/24 John Baptiste MD [address] [place] [address] Referring Physician Urology 09/24/24 Jessica Jenkins NP [address] [facility] [address] [place] [address] Nurse Practitioner Family Medicine 09/24/24 [facility] 09/24/24 documented as of this encounter
--- OUTSIDE RECORDS SUMMARY | 2024-10-21 07:23 | XMS_ITS | Encounter Summary ---
Author Organization [facility] Address [address] [place] [address] Care Team Providers Care Factory Clerk Name Role Phone Chun Hobbs MD Unavailable [phone] Chun Hobbs MD Primary Care Provider [phone] Tootie Jacobson RN Unavailable [phone] Rene Castro MD Unavailable [phone] Orquidea Carreon RN Unavailable [phone] Orquidea Shah RN Unavailable Unavailable Evens Morgan DO Unavailable [phone] John Baptiste MD Unavailable [phone] Jessica Jenkins FIELD ARTILLERY CREWMEMBER Unavailable [phone] Unallocated, Noms Provider Primary Care Provi gonzales Torres Klein MD Primary Care Provider [phone] Encounter Details Date Type Department Care Team (Late st Contact Info) Description 02/18/2024 Orders Only [facility] [address] [facility] [address] [place] [phone] A, Unknown Practice [address] [place] [address] Social History Tobacco Use Types Packs/Day [...] Start Date Job End Date retired- [employer] (21 yrs), Not on file Not on fi le Not on file documented as of this encounter Plan of Treatment Not on file documented as of this encounter Procedures Procedure Name Priority Date/Time Associated Diagnosis Comments XR CHEST 1 VIEW Routine 02/15/2024 8:36 AM EDT documented in this encounter Results * XR chest 1 view (02/15/2024 8:36 AM EDT) Anatomical Region Laterality Modality Chest [...] documented as of this encounter Care Teams Factory Clerk Relationship Specialty Start Date End Date Chun Hobbs MD [address] [facility] [address] [place] [address] PCP - [employer] 05/28/22 Chun Hobbs MD [address] [place] [address] PCP - General Internal Medicine 10/03/22 10/06/24 Unallocated, Noms Provider, [address] [facility] [address] PCP - General Family Medicine 10/07/24 10/16/24 Torres Klein MD [address] [place] [address] PCP - General Family Medicine 10/17/24 Tootie Jacobson, RN [address] [place] [address] Registered Nurse Internal Medicine 08/10/23 03/28/24 Rene Castro MD [address] [facility] [address] [place] [address] Referring Physician Cardiology 09/05/23 Orquidea Carreon, DOUG Registered Nurse Family Medicine 03/28/24 06/03/24 Orquidea Shah RN Registered Nurse Internal Medicine 06/03/24 10/07/24 Evens Morgan DO [address] [facility] [address] [place] [address] Referring Physician Pulmonary Disease 09/24/24 John Baptiste MD [address] [facility] [place] [place] [address] Referring Physician Urology 09/24/24 Jessica Jenkins NP [address] [facility] [address] [place] [address] Nurse Practitioner Family Medicine 09/24/24 [facility] 09/24/24 documented as of this encounter
--- OUTSIDE RECORDS SUMMARY | 2024-10-21 07:23 | XMS_ITS | Encounter Summary ---
Author Organization [facility] Address [address] [place] [address] Care Team Providers Care Closing Machine Operator Name Role Phone Chun Hobbs MD Unavailable [phone] Chun Hobbs MD Primary Care Provider [phone] Tootie Jacobson RN Unavailable [phone] Rene Castro MD Unavailable [phone] Orquidea Carreon RN Unavailable [phone] Orquidea Shah RN Unavailable Unavailable Evens Morgan DO Unavailable [phone] John Baptiste MD Unavailable [phone] Jessica Jenkins FISH HATCHERY WORKER Unavailable [phone] Unallocated, Noms Provider Primary Care Provi gonzales Torres Klein MD Primary Care Provider [phone] Encounter Details Date Type Department Care Team (Late st Contact Info) Description 01/17/2024 Clinisync Result Encounter [facility] External Department Unsolicited Provider, Generic External Data Social History Tobacco Use Types Packs/Day Years [...] Procedure Name Priority Date/Time Associated Diagnosis Comments RT PULMONARY FUNCTION TEST 01/17/2024 8:18 AM EDT documented in this encounter Results * RT PULMONARY FUNCTION TEST (01/17/2024 8:18 AM EDT) Anatomical Region Laterality Modality Other 01/17/2024 8:18 AM EDT Narrative 01/18/2024 8:08 AM EDT [place] [id number] Respiratory Report Signed Patient: DEMARCUS CALDERON MR#: [id number] : 1955 Acct:[id number] Age/Sex: 69 / M ADM Date: 01/17/24 Loc: CT Attending Dr: Evens Morgan D.O. Ordering Physician: Evens Morgan D.O. Date of Service: 01/17/24 Procedure(s): RT pulmonary function test Accession Number(s): [id number] cc: [facility] Test Date: 2024-01-17 Pat Name: DEMARCUS CALDERON Department: Room: - Gender: Male Enforcement Safety Officer: Dennis Francisco RRT : 1955 Requested By: Evens Morgan Order Number: [id number] Reading MD: Evens Morgan Interpretive Statements Pulmonary function testing was completed [...] Electronically Signed On 01-18-2024 8:07:55 EDT by Evens Morgan Dictated By: Evens Morgan D.O. Signed By: 01/18/24807 DD/ 7 TD/TT: Coat Tailor: Procedure Note Radiology, Radiologist, MD - 01/18/2024 [place] [address] Respiratory Report Signed Patient: DEMARCUS CALDERON JMR#: [id number] : 1955cct:[id number] Age/Sex: 69 / MADM Date: 01/17/24 Loc: CT Attending Dr: Evens Morgan D.O. Ordering Physician: Evens Morgan D.O. Date of Service: 01/17/24 Procedure(s): RT pulmonary function test Accession Number(s): [id number] cc: [facility] Test Date: 2024-01-17 Pat Name: DEMARCUS CALDERON Department: Room: - Gender: Male Enforcement Safety Officer: Dennis Francisco RRT : 1955 Requested By: Evens Morgan Order Number: [id number] Reading MD: Evens Morgan Interpretive Statements Pulmonary function testing was completed according to ATS criteria.Findings were considered accurate and reproducible. Both pre- andpost-bronchodilator values utilized for spirometry. Spirometry (based on [...] moderate restrictive pattern, though TLC is normal -this can be seen in obesity (BMI 37.3). There are obstructive features present that appear to be obscured by the restriction, including a positive bronchodilator response, increased airway resistance and decreased conductance. There is a moderate diffusion impairment which may be associated with the stated history of pulmonary fibrosis. Clinical correlation required. Electronically Signed On 01-18-2024 8:07:55 EDT by Evens Morgan Dictated By: Evens Morgan D.O. Signed By:01/18/24807 DD/ 7 TD/TT: Coat Tailor: us Generic External Data Provider [facility] Final Result documented in this encounter Visit Diagnoses Not on filedocumented in this encounter Additional Health Concerns Assessment Noted Time PHQ-9 Depression Total Score: 1 09/20/19 1:00 PM EDT A fall risk assessment has been complete d for the patient 08/10/2023 1:18 PM EDT documented as of this encounter Care Teams Closing Machine Operator Relationship Specialty Start Date End Date Chun Hobbs MD [address] [facility] [address] [place] [address] PCP - [employer] 05/28/22 Chun Hobbs MD [address] [facility] [address] [facility] [address] [place] [address] PCP - General Internal Medicine 10/03/22 10/06/24 Unallocated, Noms MD [address] [place] [address] PCP - General Family Medicine 10/07/24 10/16/24 Torres Klein MD [address] [place] [address] PCP - General Family Medicine 10/17/24 Tootie Jacobson, DOUG [address] [place] [address] Registered Nurse Internal Medicine 08/10/23 03/28/24 Rene Castro MD [address] [facility] [address], [address] [place] [address] Referring Physician Cardiology 09/05/23 Orquidea Carreon, DOUG Registered Nurse Family Medicine 03/28/24 06/03/24 Orquidea Shah RN Registered Nurse Internal Medicine 06/03/24 10/07/24 Evens Morgan DO [address] [facility] [address] [place] [address] Referring Physician Pulmonary Disease 09/24/24 John Baptiste MD [address] [facility] [place] [address] Referring Physician Urology 09/24/24 Jessica Jenkins NP [address] [facility] [address] [place] [address] Nurse Practitioner Family Medicine 09/24/24 [facility] 09/24/24 documented as of this encounter
--- OUTSIDE RECORDS SUMMARY | 2024-10-21 07:23 | XMS_ITS | Encounter Summary ---
Author Organization [facility] Address [address] [place] [address] Care Team Providers Care Wood Heel Back Liner Name Role Phone Chun Hobbs MD Unavailable [phone] Chun Hobbs MD Primary Care Provider [phone] Tootie Jacobson RN Unavailable [phone] Rene Castro MD Unavailable [phone] Orquidea Carreon RN Unavailable [phone] Orquidea Shah RN Unavailable Unavailable Evens Morgan DO Unavailable [phone] John Baptiste MD Unavailable [phone] Jessica Jenkins FILM PROCESSOR Unavailable [phone] Unallocated, Noms Provider Primary Care Provi gonzales Torres Klein MD Primary Care Provider [phone] Encounter Details Date Type Department Care Team (Late st Contact Info) Description 02/04/2024 Orders Only [facility] [address] [facility] [address] [place] [phone] A, Unknown Practice [address] [place] [address] Social History Tobacco Use Types Packs/Day [...] Start Date Job End Date retired- [employer] (21 yrs), Not on file Not on fi le Not on file documented as of this encounter Plan of Treatment Not on file documented as of this encounter Procedures Procedure Name Priority Date/Time Associated Diagnosis Comments XR CHEST 2 VIEWS Routine 02/02/2024 11:13 AM EDT documented in this encounter Results * XR chest 2 views (02/02/2024 11:13 AM EDT) Anatomical Region Laterality Modality Chest [...] documented as of this encounter Care Teams Wood Heel Back Liner Relationship Specialty Start Date End Date Chun Hobbs MD [address] [facility] [address] [place] [address] PCP - [employer] 05/28/22 Chun Hobbs MD [address] [place] [address] PCP - General Internal Medicine 10/03/22 10/06/24 Unallocated, Noms Provider, [address] [facility] [place] [address] PCP - General Family Medicine 10/07/24 10/16/24 Torres Klein MD [address] [place] [address] PCP - General Family Medicine 10/17/24 Tootie Jacobson, RN [address] [place] [address] Registered Nurse Internal Medicine 08/10/23 03/28/24 Rene Castro MD [address] [facility] [address] [place] [address] Referring Physician Cardiology 09/05/23 Orquidea Carreon, DOUG Registered Nurse Family Medicine 03/28/24 06/03/24 Orquidea Shah RN Registered Nurse Internal Medicine 06/03/24 10/07/24 Evens Morgan DO [address] [facility] [address] [place] [address] Referring Physician Pulmonary Disease 09/24/24 John Baptiste MD [address] [facility] [place] [address] Referring Physician Urology 09/24/24 Jessica Jenkins NP [address] [facility] [address] [place] [address] Nurse Practitioner Family Medicine 09/24/24 [facility] 09/24/24 documented as of this encounter
--- OUTSIDE RECORDS SUMMARY | 2024-10-21 07:23 | XMS_ITS | Encounter Summary ---
Author Organization [facility] Address [address] [place] [address] Care Team Providers Care Gusset Ripper Name Role Phone Chun Hobbs MD Unavailable [phone] Chun Hobbs MD Primary Care Provider [phone] Tootie Jacobson RN Unavailable [phone] Rene Castro MD Unavailable [phone] Orquidea Carreon RN Unavailable [phone] Orquidea Shah RN Unavailable Unavailable Evens Morgan DO Unavailable [phone] John Baptiste MD Unavailable [phone] Jessica Jenkins INSIDE SALES CONSULTANT Unavailable [phone] Unallocated, Noms Provider Primary Care Provi gonzales Torres Klein MD Primary Care Provider [phone] Encounter Details Date Type Department Care Team (Late st Contact Info) Description 02/19/2024 Orders Only [facility] [address] [facility] [address] [place] [id number] A, Unknown Practice [address] [place] [id number] Social History Tobacco Use Types Packs/Day [...] Start Date Job End Date retired- [employer] (21 yrs), Not on file Not on fi le Not on file documented as of this encounter Plan of Treatment Not on file documented as of this encounter Procedures Procedure Name Priority Date/Time Associated Diagnosis Comments XR CHEST 1 VIEW Routine 02/17/2024 1:10 PM EDT documented in this encounter Results * XR chest 1 view (02/17/2024 1:10 PM EDT) Anatomical Region Laterality Modality Chest Radiographic [...] documented as of this encounter Care Teams Gusset Ripper Relationship Specialty Start Date End Date Chun Hobbs MD [address] [facility] [address] [place] [address] PCP - [employer] 05/28/22 Chun Hobbs MD [address] [place] [address] PCP - General Internal Medicine 10/03/22 10/06/24 Unallocated, Noms Boby, [address] [facility] [place] [address] PCP - General Family Medicine 10/07/24 10/16/24 Torres Klein MD [address] [place] [address] PCP - General Family Medicine 10/17/24 Tootie Jacobson, RN [address] [place] [address] Registered Nurse Internal Medicine 08/10/23 03/28/24 Rene Castro MD 703 [facility] 2, [address] [place] [address] Referring Physician Cardiology 09/05/23 Orquidea Carreon, DUOG Registered Nurse Family Medicine 03/28/24 06/03/24 Orquidea Shah RN Registered Nurse Internal Medicine 06/03/24 10/07/24 Evens Morgan DO 703 [facility] [address] [place] [address] Referring Physician Pulmonary Disease 09/24/24 John Baptiste MD [address] [place] [address] Referring Physician Urology 09/24/24 Jessica Jenkins NP [address] [facility] [address] [place] [address] Nurse Practitioner Family Medicine 09/24/24 [facility] 09/24/24 documented as of this encounter
--- OUTSIDE RECORDS SUMMARY | 2024-10-21 07:24 | XMS_ITS ---
Author Organization [facility] Address [address] [place] [address] Care Team Providers Care Fleet Maintenance Manager Name Role Phone Chun Hobbs MD Unavailable [phone] Rene Castro MD Unavailable [phone] Evens Morgan DO Unavailable [phone] John Baptiste MD Unavailable [phone] Jessica Jenkins TRICOT KNITTING MACHINE OPERATOR Unavailable [phone] Torres Klein MD Primary Care Provider [phone] Chronic Care Management (CCM) Status:Closed (Closed) Start date:08/10/2023 Enrollment date:08/10/2023 Enrollment reason:Identified by Health Plan End date:10/07/2024 Close reason:Assistance not needed Overview Please assess for Care Management needs. 08/10/23, 1:15 PM - Tootie Jacobson RN- Patient gives verbal consent to be enrolled in CCM Program and understands there could be a bill for this service. <October 07, 2024, 11:51 - Orquidea Shah RN> Patient no longer being seen in this office. Patient transferred to Dr Torres Klein. Continued Care and Services Coordination
--- OUTSIDE RECORDS SUMMARY | 2024-10-21 07:24 | XMS_ITS | Encounter Summary ---
Author Organization [facility] Address [address] [place] [address] Care Team Providers Care Chamfering Machine Operator Name Role Phone Chun Hobbs MD Unavailable [phone] Chun Hobbs MD Primary Care Provider [phone] Tootie Jacobson RN Unavailable [phone] Tootie Jacobson RN Unavailable [phone] Aaron Castro MD Unavailable [phone] Orquidea Carreon RN Unavailable [phone] Orquidea Shah RN Unavailable Unavailable Evens Morgan DO Unavailable John Baptiste MD Unavailable [phone] Jessica Jenkins BOTTLE WASHER Unavailable [phone] Unallocated, Noms Provider Primary Care Provi gonzales Torres Klein MD Primary Care Provider [phone] Encounter Details Date Type Department Care Team (Late st Contact Info) Description 01/03/2023 Clinisync Result Encounter [facility] External Department Unsolicited Provider, Generic External Data Social History Tobacco Use Types Packs/Day Years Used Date Smoking Tobacco: Never Assessed Sex and Gender Information Value Date Recorded Sex Assigned at Male 11/13/2022 9:05 AM EDT Legal Sex Male 7:10 PM EDT Gender Identity Male 11/13/2022 9:05 AM EDT Sexual Orientation Not on file documented as of this encounter Plan of Treatment Not on file documented as of this encounter Procedures Procedure Name Priority Date/Time Associated Diagnosis Comments [facility] CARDIAC STRESS/REST INJECTION 01/03/2023 10:57 AM EDT documented in this encounter Results * [facility] CARDIAC STRESS/REST INJECTION (01/03/2023 10:57 AM EDT) Anatomical Region Laterality Modality Other 01/03/2023 10:5 7 AM EDT Narrative 01/08/2023 4:43 PM EDT Patient Name: DEMARCUS CALDERON STUDY: MYOCARDIAL PERFUSION STRESS TEST WITH LEXISCAN Performing facility: [facility], [address] [place] [address], [address], [address] Provider: Aaron Castro MD, [facility] PCP: Dr. Hunter Hobbs Supervising provider: Danna Davis DO, [facility] INDICATION: CAD; HTN Hyperlipidemia Ischemic cardiomyopathy HISTORY: Gender: M; Age: 68 y/o ; Height: 172.72 cm; Weight: 521.1427756 kg. CAD; High Cholesterol; HTN; Quit smoking 38 years ago. Cardiac catheterization on 2009. PTCA on 2009. COMPARISON: Previous nuclear testing completed at [facility]. ACCESSION NUMBER(S): [id number]; [id number]; [id number] ORDERING CLINICIAN: AARON CASTRO TECHNIQUE: TWO DAY protocol. Stress injection: [...] interval changes are seen. Electronically signed by: AARON CASTRO MD Procedure Note Radiology, Radiologist, MD - 01/08/2023 Patient Name: DEMARCUS CALDERON STUDY: MYOCARDIAL PERFUSION STRESS TEST WITH LEXISCAN Performing facility: [facility], [address] [place] [address], [address], [address] Provider: Aaron Castro MD, [facility] PCP: Dr. Hunter Hobbs Supervising provider: Danna Davis DO, [facility] INDICATION: CAD; HTN Hyperlipidemia Ischemic cardiomyopathy HISTORY: Gender: M; Age: 68 y/o ; Height: 172.72 cm; Weight: 886.4607971 kg. CAD; High Cholesterol; HTN; Quit smoking 38 years ago. Cardiac catheterization on 2009. PTCA on 2009. COMPARISON: Previous nuclear testing completed at [facility]. ACCESSION NUMBER(S): [id number]; [id number]; [id number] ORDERING CLINICIAN: AARON CASTRO TECHNIQUE: TWO DAY protocol. Stress injection: [...] interval changes are seen. Electronically signed by: AARON CASTRO MD Generic External Data Provider [facility] Final Result documented in this encounter Visit Diagnoses Not on filedocumented in this encounter Care Teams Chamfering Machine Operator Relationship Specialty Start Date End Date Chun Hobbs MD [address] [place] [address] PCP - [employer] 05/28/22 Chun Hobbs MD [address] [place] [address] PCP - General Internal Medicine 10/03/22 10/06/24 Unallocated, Noms Provider, [place] [address] PCP - General Family Medicine 10/07/24 10/16/24 Torres Klein MD [address] [facility] [address] PCP - General Family Medicine 10/17/24 Tootie Jacobson, DOUG [address] [place] [address] Registered Nurse Internal Medicine 07/03/23 07/12/23 Tootie Jacobson, DOUG [address] [place] [address] Registered Nurse Internal Medicine 08/10/23 03/28/24 Aaron Castro MD 703 [facility] 2, [address] [place] [address] Referring Physician Cardiology 09/05/23 Orquidea Carreon, RN Registered Nurse Family Medicine 03/28/24 06/03/24 Orquidea Shah, DOUG Registered Nurse Internal Medicine 06/03/24 10/07/24 Evens Morgan DO 703 [facility] [address] [place] [address] Referring Physician Pulmonary Disease 09/24/24 John Baptiste MD [address] [place] [address] Referring Physician Urology 09/24/24 Jessica Jenkins NP [address] [place] [address] Nurse Practitioner Family Medicine 09/24/24 [facility] 09/24/24 documented as of this encounter
--- OUTSIDE RECORDS SUMMARY | 2024-10-21 07:24 | XMS_ITS | Encounter Summary ---
Author Organization [facility] Address [address] [place] [address] Phone Care Team Providers Care Wrapper Opener Name Role Phone Chun Hobbs MD Primary Care Provider [phone] Encounter Details Date Type Department Care Team (Late st Contact Info) Description 08/22/2023 Scanned Document [facility] [address] [place] [phone] Scanning, Generic Provider Social History Tobacco Use Types Packs/Day Years Used Date Smoking Tobacco: Former Cigarettes Q uit: 1992 Smokeless Tobacco: Never Alcohol Use Standard Drinks/Week Comments Never 0 (1 standard drink = 0.6 oz pur e alcohol) Sex and Gender Information Value Date Recorded Sex Assigned at Not on file Legal Sex Male 10:57 PM EST Gender Identity Not on file Sexual Orientation Not on file documented as of this encounter Plan of Treatment Upcoming Encounters Date Type Department Care Team (Late st Contact Info) Description 10/24/2024 10:00 AM EDT Office Visit [place] [address] [facility] [address] [place] [address] Penelope Richmond, RECREATIONAL THERAPY TECHNICIAN-SIFTER AND MILLER 703 [facility] 2, [address] [place] [address] 01/06/2025 10:20 AM EDT Office Visit [facility] [address] [facility] [address] [place] [address] Rene Castro MD 703 [facility] 2, [address] [place] [address] documented as of this encounter Visit Diagnoses Not on filedocumented in this encounter Additional Health Concerns Assessment Noted Time A fall risk assessment has been complete d for the patient 03/23/2023 9:35 AM EDT documented as of this encounter Care Teams Wrapper Opener Relationship Specialty Start Date End Date Chun Hobbs MD [address] [place] [address] PCP - General 02/16/21 documented as of this encounter
--- OUTSIDE RECORDS SUMMARY | 2024-10-21 07:24 | XMS_ITS | Encounter Summary ---
Author Organization [facility] Address [address] [place] [address] Phone Care Team Providers Care Ergonomics Consultant Name Role Phone Chun Hobbs MD Primary Care Provider [phone] Encounter Details Date Type Department Care Team (Late st Contact Info) Description 07/29/2021 Orders Only [facility] [address] [place] [address] Conversion, Onbase Social History Tobacco Use Types Packs/Day Years [...] Description 10/24/2024 10:00 AM EDT Office Visit [address] [phone] Penelope Richmond, CATTLE STICKER-PARK NATURALIST 703 [facility] 2, [address] [address] 01/06/2025 10:20 AM EDT Office Visit [address] [phone] Rene Castro MD 703 [facility] 2, [address] [address] Scheduled Orders Name Type Priority Associated Diagnoses Orde r Schedule OUTSIDE LAB SCAN Lab Ordered: 07/29/2021 OUTSIDE LAB SCAN Lab Ordered: 07/29/2021 documented as of this encounter Visit Diagnoses Not on filedocumented in this encounter Care Teams Ergonomics Consultant Relationship Specialty Start Date End Date Chun Hobbs MD [address] [place] [address] PCP - General 02/16/21 documented as of this encounter
--- OUTSIDE RECORDS SUMMARY | 2024-10-21 07:24 | XMS_ITS | Encounter Summary ---
Author Organization [facility] Address [address] [place] [address] Phone Care Team Providers Care Jewelry Technician Name Role Phone Chun Hobbs MD Primary Care Provider [phone] Encounter Details Date Type Department Care Team (Late st Contact Info) Description 02/24/2022 Orders Only [facility] [address] [place] [address] Conversion, Onbase Social History Tobacco Use Types [...] Description 10/24/2024 10:00 AM EDT Office Visit [address] [phone] Penelope Richmond, GRADALL OPERATOR-FIELD PARTY MANAGER 703 [facility] 2, [address] [address] 01/06/2025 10:20 AM EDT Office Visit [address] [phone] Rene Castro MD 703 [facility] 2, [address] [phone] Scheduled Orders Name Type Priority Associated Diagnoses Orde r Schedule OUTSIDE LAB SCAN Lab Ordered: 02/24/2022 documented as of this encounter Visit Diagnoses Not on filedocumented in this encounter Care Teams Jewelry Technician Relationship Specialty Start Date End Date Chun Hobbs MD [address] [place] [address] PCP - General 02/16/21 documented as of this encounter
--- OUTSIDE RECORDS SUMMARY | 2024-10-21 07:24 | XMS_ITS | Clinical Summary ---
Author Organization Address [address] [place] [address] Care Team Providers Care Wine Bottle Inspector Name Role Phone Unavailable Primary Care Provider Unavailabl e Allergies Active Allergy Reactions Criticality Noted Date Comments Codeine Vomiting 04/27/2006 Codeine-Guaifenesin Other: See Comments 021 Guaifenesin Other: See Comments 05/23/2013 Medications albuterol HFA (PROVENTIL HFA, VENTOLIN HFA) 90 mcg/actuation inhaler 11/07/2021 Active atorvastatin (LIPITOR) 40 mg tablet 04/29/2022 Active benzonatate (TESSALON PERLE) 100 mg capsule take 1 capsule by mouth three times a day if needed for cough SWALLOW WHOLE 01/17/2022 Active carvedilol (COREG) 6.25 mg tablet 04/25/2021 Active doxycycline hyclate (VIBRAMYCIN) 100 mg capsule 01/17/2022 Acti ve hydroCHLOROthia zide (HYDRODIURIL, ESIDRIX) 25 mg tablet Take by mouth q 24 HR. 10/11/2020 Active losartan (COZAAR) 25 mg tablet 08/15/2021 Active nitroglycerin sublingual (NITROQUICK) 0.4 mg SL tablet Dissolve under the tongue. Active omeprazole (PRILOSEC) 20 mg capsule 08/15/2021 Active tamsulosin (FLOMAX) 0.4 mg 06/28/2020 Act shaji valACYclovir (VALTREX) 1 gram TAKE 1 TABLET BY MOUTH THREE TIMES A DAY FOR 7 DAYS 02/01/2022 Active fluticasone-ricky meterol HFA (ADVAIR) 115-21 mcg/actuation inhaler 01/02/2022 Active vitamin E, dl,tocopheryl acet, (VITAMIN E, DL, ACETATE,) 180 mg (400 unit) capsule Take 1 tablet by mouth once daily. 09/04/2016 Active aspirin, enteric coated (ASPIRIN, ENTERIC COATED) 81 mg EC tablet 81 mg. 06/07/2016 Act shaji ezetimibe (ZETIA) 10 mg tablet Take 1 tablet by mouth once daily. 08/18/2019 Active Zinc Gluconate 30 mg tab Take by mouth q 24 HR. Active Active Problems No known active problems Family History Medical History Relation Comments Heart Brother Heart Father Diabetes Mother Relation Status Comments Brother Father Mother Social History Tobacco Use Types Packs/Day Years Used Date Smoking Tobacco: Never Smokeless Tobacco: Never Tobacco Cessation:Counseling Given: Not Answered Alcohol Use Standard Drinks/Week Comments Not Currently 0 (1 standard drink = 0.6 oz pur e alcohol) Sex and Gender Information Value Date Recorded Sex Assigned at Not on file Legal Sex Male 1:29 PM EST Gender Identity Not on file Sexual Orientation Not on file Plan of Treatment Health Maintenance Due Date Last Done Comments Anxiety Screening 1971 Depression Screening 1971 Hepatitis C Screening 1971 Lipid Screening 01/02/1988 CT Colonography 1998 Cologuard (FIT-DNA) 1998 Colonoscopy 1998 Colorectal Cancer Screening 1998 Diabetes Screening 1998 Fecal Occult Blood 1998 Sigmoidoscopy 1998 Shingrix Vaccine (2 of 3) 02/15/2017 12/21/2016 Covid-19 Vaccine ( - 2023-2 5 season) 2024 Advance Directive Discussion 05/28/2024 Influenza Vaccine (Season Ended) 2025 03/28/2019, 08/16/2018, 05/15/2017, Additional history exists DTaP,Tdap,Td Vaccine (2 - Td or Tdap) 08/11/2027 08/10/2017, 2007 RSV Vaccine (1 - 1-dose 75+ series) 01/02/2028 Pneumococcal Vaccine: 50+ Completed 2018, 05/28/2018, 09/30/2012, Additional history exists Insurance [facility] DearJane [facility] HUMANA MEDICARE
--- OUTSIDE RECORDS SUMMARY | 2024-10-21 07:24 | XMS_ITS | Encounter Summary ---
Author Organization [facility] Address [address] [place] [address] Care Team Providers Care Bridge Game Director Name Role Phone Chun Hobbs MD Unavailable [phone] Chun Hobbs MD Primary Care Provider [phone] Tootie Jacobson RN Unavailable [phone] Tootie Jacobson RN Unavailable [phone] Rene Casrto MD Unavailable [phone] Orquidea Carreon RN Unavailable [phone] Orquidea Shah RN Unavailable Unavailable Evens Morgan DO Unavailable [phone] John Baptiste MD Unavailable [phone] Jessica Jenkins OILER BANDER Unavailable [phone] Unallocated, Noms Provider Primary Care Provi gonzales Torres Kelin MD Primary Care Provider [phone] Encounter Details Date Type Department Care Team (Late st Contact Info) Description 03/14/2023 Abstract [facility] [address] [facility] [address] [place] [address] Chun Hobbs MD [address] [facility] [address] [place] [address] Social History Tobacco Use Types Packs/Day Years Used Date Smoking Tobacco: Former Cigarettes Tobacco Cessation:Counseling Given: Not Answered Alcohol Use Standard Drinks/Week Comments Never 0 (1 standard drink = 0.6 oz pure alcohol) caffeine: coffee 5-6 cups a day Sex and Gender Information Value Date Recorded Sex Assigned at Male 11/13/2022 9:05 AM EDT Legal Sex Male 7:10 PM EDT Gender Identity Male 11/13/2022 9:05 AM EDT Sexual Orientation Not on file Occupation Industry Job Start Date Job End Date retired- [employer] (21 yr s), 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 Not on file Not on file documented as of this encounter Plan of Treatment Not on file documented as of this encounter Visit Diagnoses Not on filedocumented in this encounter Care Teams Bridge Game Director Relationship Specialty Start Date End Date Chun Hobbs MD [address] [facility] [address] [place] [address] PCP - [employer] 05/28/22 Chun Hobbs MD [address] [place] [address] PCP - General Internal Medicine 10/03/22 10/06/24 Unallocated, Noms Boby, [address] [place] [address] PCP - General Family Medicine 10/07/24 10/16/24 Torres Klein MD [address] [place] [address] PCP - General Family Medicine 10/17/24 Tootie Jacobson RN [address] [place] [address] Registered Nurse Internal Medicine 07/03/23 07/12/23 Tootie Jacobson RN [address] [place] [address] Registered Nurse Internal Medicine 08/10/23 03/28/24 Rene Castro MD 703 [facility] 2, [address] [place] [address] Referring Physician Cardiology 09/05/23 Orquidea Carreon, DOUG Registered Nurse Family Medicine 03/28/24 06/03/24 Orquidea Shah, DOUG Registered Nurse Internal Medicine 06/03/24 10/07/24 Evens Morgan DO 703 [facility] [address] [place] [address] Referring Physician Pulmonary Disease 09/24/24 John Baptiste MD [address] [facility] [place] [address] Referring Physician Urology 09/24/24 Jessica Jenkins NP [address] [place] [address] Nurse Practitioner Family Medicine 09/24/24 [facility] 09/24/24 documented as of this encounter
--- OUTSIDE RECORDS SUMMARY | 2024-10-21 07:24 | XMS_ITS | Clinical Summary ---
Author Organization [facility] Address [address] [place] [address] Care Team Providers Care Inside Barrel Polisher Name Role Phone Chun Hobbs MD Unavailable [phone] Rene Castro MD Unavailable [phone] Evens Morgan DO Unavailable [phone] John Baptiste MD Unavailable [phone] Jessica Jenkins BOBBIN COIL WINDER Unavailable [phone] Torres Klein MD Primary Care Provider [phone] Allergies Active Allergy Reactions Criticality Noted Date Comments Codeine Nausea And Vomiting,Other Low 04/27/2006 Other Reaction(s): Vomiting Guaifenesin Other Low 05/23/2013 Other Reaction(s): Airway constriction Medications ezetimibe (Zetia) 10 MG tablet Take 10 mg by mouth at bedtime. Active losartan (Cozaar) 50 MG tablet Take 50 mg by mouth in the morning. Active Multiple Vitamin (Multivitamin Adult) tablet Take 1 tablet by mouth in the morning. Active triamcinolone (Nasacort Allergy 24HR) 55 MCG/ACT nasal inhaler Administer 1 spray into each nostril in the morning. Active cholecalciferol (Vitamin D-3) 50 MCG (1999) tablet Take 50 mcg by mouth in the morning. Active magnesium oxide (Mag-Ox) 250 MG tablet Take 250 mg by mouth in the morning. Active nitroglycerin (Nitrostat) 0.[address] 0.4 mg under the tongue every 5 (five) minutes if needed for chest pain. Active omega-3 (fish oil) 1200 MG capsule Take 1 capsule by mouth 1 (one) time each day. Active alpha tocopherol (Vitamin E) 400 units capsule Take 400 Units by mouth in the morning. Active zinc 30 MG tablet Take 30 mg by mouth 1 (one) time each day. Active albuterol HFA 90 mcg/act inhalerIndicati ons:Chronic obstructive pulmonary disease, unspecified COPD type (CMS/HCC) Inhale 2 puffs every 6 (six) hours if needed for wheezing or shortness of breath 18 g 3 07/09/19 24 Active albuterol (2.5 MG/3ML) 0.083% nebulizer solutionIndicat ions:Chronic obstructive pulmonary disease, unspecified COPD type (CMS/HCC) Take 3 mL (2.5 mg) by nebulization every 8 (eight) hours 810 mL 3 07/11/19 24 Active fluticasone (Flonase) 50 MCG/ACT nasal spray Administer 2 sprays into each nostril Daily 07/25/19 24 Active sildenafil (Viagra) 100 MG tabletIndicatio ns:Benign prostatic hyperplasia without urinary obstruction Take 1 tablet (100 mg) by mouth if needed for erectile dysfunction 10 tablet 2 11/05/19 24 Active rosuvastatin (Crestor) 40 MG tablet Take 40 mg by mouth in the morning. 10/18/19 24 Active tamsulosin (Flomax) 0.4 MG 24 hr capsuleIndicati ons:Benign prostatic hyperplasia without urinary obstruction Take 1 capsule (0.4 mg) by mouth Daily 90 capsule 3 03/24/20 24 Active omeprazole (PriLOSEC) [address] capsuleIndicati ons:Gastroesoph ageal reflux disease without esophagitis Take 1 capsule (20 mg) by mouth Daily 90 capsule 3 03/24/20 24 Active carvedilol (Coreg) 6.25 MG tabletIndicatio ns:Essential hypertension (CMS/HCC) Take 1 tablet (6.25 mg) by mouth in the morning and 1 tablet (6.25 mg) in the evening. Take with meals. 180 tablet 3 03/24/20 24 Active hydrocortisone 2.5 % creamIndication s:Erythema intertrigo Apply thin layer to affected areas on groin up once or twice daily prn itching. Hold if not itchy. 28 g 07/17/19 25 Active Fluticasone-Ume clidin-Vilant (Trelegy Ellipta) 100-62.5-25 MCG/ACT aerosol powderIndicatio ns:Chronic obstructive pulmonary disease, unspecified COPD type (CMS/HCC) Inhale 1 puff Daily 1 each 08/05/19 25 Active furosemide (Lasix) 40 MG tablet Take 40 mg by mouth Daily as needed Active azithromycin (Zithromax) 250 MG tablet Take 250 mg by mouth See administration instructions 500 mg today, 250 mg x 4 days 06/29/19 25 025 Discontinu ed(Med list cleanup) nystatin (Mycostatin) 787637 UNIT/GM powderIndicatio ns:Erythema intertrigo Apply to the affected area on groin area, once daily, 30 day supply 60 g 07/17/19 25 025 Discontinu ed(Med list cleanup) doxycycline (Vibramycin) 100 MG capsule Take 100 mg by mouth in the morning and 100 mg before bedtime. 09/26/19 25 025 predniSONE (Deltasone) 20 MG tablet Take 40 mg by mouth Daily 09/26/19 25 025 Active Problems Problem Noted Date Diagnosed Date Elevated PSA 07/01/2024 Chronic systolic congestive heart failure 2023 Prediabetes 09/20/2023 Post herpetic neuralgia 03/14/2023 Testicular hypofunction 03/14/2023 Polyp of nasal sinus 03/14/2023 Chronic sinusitis 03/14/2023 Chronic obstructive pulmonary disease 03/14/2023 Bronchiectasis 03/14/2023 Bronchial asthma 03/14/2023 Benign prostatic hyperplasia without urinary obs truction 03/14/2023 Pure hypercholesterolemia 03/14/2023 Status post coronary artery stent placement 01/26 Ischemic cardiomyopathy 02/13/2023 Former smoker 02/13/2023 Essential hypertension 02/13/2023 Gastroesophageal reflux disease without esophagi tis 02/13/2023 Coronary artery disease invo lving cloverdale coronary artery of cloverdale heart without angina pectoris 02/13/2023 Encounters Date Type Department Care Team Description 10/07/2024 Patient Outreach [facility] [address] [place] [address] Orquidea Shah RN 09/29/2024 Patient Outreach [place] [address] [place] [address] Orquidea Shah RN 09/26/2024 Patient Outreach [place] [address] [place] [address] Orquidea Shah RN 09/24/2024 1:30 PM EDT Office Visit [facility] [address] [place] [address] Sally Mancuso, BOBBIN COIL WINDER Gastroesophageal reflux disease without esophagitis (Primary Dx); Essential hypertension ([facility]/HCC); Pure hypercholesterolemia ([facility]/HCC); Chronic systolic (congestive) heart failure; Prediabetes; Coronary artery disease involving cloverdale coronary artery of cloverdale heart without angina pectoris ([facility]/HCC); Severe persistent asthma, uncomplicated ([facility]); Elevated PSA; BMI 36.0-36.9,adult; Morbid (severe) obesity due to excess calories ([facility]/HCC); Medicare annual wellness visit, subsequent; ACP (advance care planning) 09/24/2024 Orders Only [facility] [address] [place] [address] Unallocated, Esvin Landis MD 09/24/2024 Travel 09/23/2024 Patient Outreach [place] [address] [place] [address] Orquidea Shah RN 09/09/2024 Patient Outreach [place] [address] [place] [address] Orquidea Shah RN 08/28/2024 Patient Outreach [address] [place] [address] Orquidea Shah RN 08/04/2024 Patient Outreach [address] [place] [address] Orquidea Shah RN 08/02/2024 Refill [facility] [address] [place] [address] Chun Hobbs MD 07/28/2024 Patient Outreach [facility] [address] [place] [address] Orquidea Shah RN from Last 3 Months Immunizations Immunization Administration Dates Next Due Influenza, seasonal, injectable, preservative fr ee 08/16/2018 Influenza, trivalent, adjuvanted 04/16/2019 Pneumococcal Conjugate PCV 13 08/16/2018 Pneumococcal Polysaccharide PPSV23 05/28/2018, Pneumococcal, Unspecified 09/30/2012 Td (adult), unspecified 2007 Tdap 08/10/2017 Zoster, live 12/21/2016 Family History Medical History Relation Name Comments Aneurysm Father Dementia Mother Diabetes Mother Heart disease Sibling Kidney failure Sibling No Known Problems Son Relation Name Status Comments Brother 2 Father Mother Sibling Sister 1 Son 2 Social History Tobacco Use Types Packs/Day Years Used Date Smoking Tobacco: Former Cigarettes Q uit: 05/28/1992 Tobacco Cessation:Counseling Given: Not Answered Alcohol Use [...] Not on fi le Not on file Last Filed Vital Signs Vital Sign Reading Time Taken Comments Blood Pressure 130/64 09/24/2024 1:29 PM EDT Pulse 79 09/24/2024 1:29 PM EDT Temperature 36.3 C (97.3 F) 05/07/2024 5:27 PM EST Respiratory Rate 18 06/30/2023 10:23 AM EST Oxygen Saturation 96% 09/24/2024 1:29 PM EDT Inhaled Oxygen Concentration - - Weight 109 kg (241 lb) 09/24/2024 1:29 PM EDT Height 172.7 cm (5' 8 ) 09/24/2024 1:29 PM EDT Body Mass Index 36.64 09/24/2024 1:29 PM EDT Plan of Treatment Health Maintenance Due Date Last Done Comments CT Colonography 1953 FIT-DNA 1953 FIT 1953 FOBT 1955 Sigmoidoscopy 1955 Colonoscopy 07/27/2029 07/28/2019 Colorectal Cancer Screening 07/27/2029 Pneumococcal Vaccine: 65+ Years Completed 08/16/2018, 05/28/2018, 09/30/2012, Additional history exists Influenza Vaccine Discontinued 04/16/2019, 08/16/2018 Procedures Procedure Name Priority Date/Time Associated Diagnosis Comments CBC WITH AUTO DIFFERENTIAL Routine 09/22/2024 4:11 PM EDT COMPREHENSIVE METABOLIC PANEL Routine 09/22/2024 4:11 PM EDT TROPONIN T, HIGH SENSITIVITY Routine 09/22/2024 4:11 PM EDT NT PRO-BNP Routine 09/22/2024 4:11 PM EDT COLONOSCOPY Routine 07/28/2019 12:00 PM EST from Last 3 Months or Most Recently Relevant to Health Maintenance Results * NT PRO-BNP (09/22/2024 4:11 PM EDT) us [facility] Provider Unallocated MD LAB BLOOD ORDERABLE S Final Result * TROPONIN T, HIGH SENSITIVITY (09/22/2024 4:11 PM EDT) us [facility] Provider Unallocated MD LAB BLOOD ORDERABLE S Final Result * CBC auto differential (09/22/2024 4:11 PM EDT) Blood Venous blood specimen / Unknown us [facility] Provider Unallocated MD LAB BLOOD ORDERABLE S Final Result * Comprehensive metabolic panel (09/22/2024 4:11 PM EDT) Blood Venous blood specimen / Unknown us [facility] Provider Unallocated LAB BLOOD ORDERABLE S Final Result * Colonoscopy (07/28/2019 12:00 PM EST) Anatomical Region Laterality Modality Endoscopy 07/28/2019 12:0 0 PM EST Narrative 07/28/2019 12:00 PM EST PERFORMED AT [facility] LOCATION:[id number] Normal Procedure Note CONVERSION, GENERIC - 10/11/2022 PERFORMED AT [facility] LOCATION:[id number] Normal Chun Hobbs MD ENDOSCOPY PROCEDURE ORDERABLES Final Result from Last 3 Months or Most Recently Relevant to Health Maintenance Insurance [employer]AGE [facility] Care Teams Inside Barrel Polisher Relationship Specialty Start Date End Date Chun Hobbs MD [address] [place] [address] PCP - [employer] 05/28/22 Torres Klein MD [address] [facility] [place] [address] PCP - General Family Medicine 10/17/24 Rene Castro MD [address] [facility] [address] [place] [address] Referring Physician Cardiology 09/05/23 Evens Morgan DO [address] [facility] [address] [place] [address] Referring Physician Pulmonary Disease 09/24/24 John Baptiste MD [address] [place] [address] Referring Physician Urology 09/24/24 Jesisca Jenkins NP [address] [facility] [address] [place] [address] Nurse Practitioner Family Medicine 09/24/24 [facility] 09/24/24
--- OUTSIDE RECORDS SUMMARY | 2024-10-21 07:24 | XMS_ITS | Encounter Summary ---
Author Organization [facility] Address [address] [place] [address] Care Team Providers Care Fiscal Clerk Name Role Phone Chun Hobbs MD Unavailable [phone] Chun Hobbs MD Primary Care Provider [phone] Tootie Jacobson RN Unavailable [phone] Tootie Jacobson RN Unavailable [phone] Rene Castro MD Unavailable [phone] Orquidea Carreon RN Unavailable [phone] Orquidea Shah RN Unavailable Unavailable Evens Morgan DO Unavailable [phone] John Baptiste MD Unavailable [phone] Jessica Jenkins TECHNICAL REPORT WRITER Unavailable [phone] Unallocated, [facility] Provider Primary Care Provi gonzales Torres Klein MD Primary Care Provider [phone] Encounter Details Date Type Department Care Team (Late st Contact Info) Description 03/14/2023 Abstract [facility] [address] [facility] [address] [place] [address] Chun Hobbs MD [address] [facility] [address] [place] [address] Social History Tobacco Use Types Packs/Day Years [...] Start Date Job End Date 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- [employer]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), 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 Not on file Not on file documented as of this encounter Plan of Treatment Not on file documented as of this encounter Visit Diagnoses Not on filedocumented in this encounter Care Teams Fiscal Clerk Relationship Specialty Start Date End Date Chun Hobbs MD [address] [facility] [address] [place] [address] PCP - [employer] 05/28/22 Chun Hobbs MD [address] [place] [address] PCP - General Internal Medicine 10/03/22 10/06/24 Unallocated, [facility], [address] [place] [address] PCP - General Family Medicine 10/07/24 10/16/24 Torres Klein MD [address] [place] [address] PCP - General Family Medicine 10/17/24 Tootie Jacobson RN [address] [place] [address] Registered Nurse Internal Medicine 07/03/23 07/12/23 Tootie Jacobson RN [address] [place] [address] Registered Nurse Internal Medicine 08/10/23 03/28/24 Rene Castro MD [address] [facility] [address] [place] [address] Referring Physician Cardiology 09/05/23 Orquidea Carreon, DOUG Registered Nurse Family Medicine 03/28/24 06/03/24 Orquidea Shah, DOUG Registered Nurse Internal Medicine 06/03/24 10/07/24 Evens Morgan DO [address] [facility] [address] [place] [address] Referring Physician Pulmonary Disease 09/24/24 John Baptiste MD [address] [facility] [place] [address] Referring Physician Urology 09/24/24 Jessica Jenkins NP [address] [place] [address] Nurse Practitioner Family Medicine 09/24/24 [facility] 09/24/24 documented as of this encounter
--- OUTSIDE RECORDS SUMMARY | 2024-10-21 07:24 | XMS_ITS ---
Author Organization [facility] Address [address] [place] [address] Care Team Providers Care Coal Loader Name Role Phone Chun Hobbs MD Unavailable [phone] Rene Castro MD Unavailable [phone] Evens Morgan DO Unavailable [phone] John Baptiste MD Unavailable [phone] Jessica Jenkins ACQUISITION MARKETING MANAGER Unavailable [phone] Torres Klein MD Primary Care Provider [phone] Emergency Department Transitional Care Management (TCM) Status:Closed (Closed) Start date:10/03/2024 Enrollment date:10/06/2024 Enrollment reason:Identified using hospital discharge data End date:10/07/2024 Close reason:Assistance not needed Overview Discharged from [facility] ER on 10/03 & 10/06. Please contact within 2 days of discharge for ER TAMIKA and schedule a follow-up appointment if needed. <October 07, 2024, 11:50 - Orquidea Shah RN> Pateint not longer being seen by this office. Pt transferred care to Dr Torres Klein. Continued Care and Services Coordination
--- OUTSIDE RECORDS SUMMARY | 2024-10-21 07:24 | XMS_ITS | Clinical Summary ---
Author Organization [facility] Address [address] [place] [address] Phone Care Team Providers Care Sales And Marketing Manager Name Role Phone Chun Hobbs MD Primary Care Provider [phone] Allergies Active Allergy Reactions Criticality Noted Date Comments Codeine Unknown 02/13/2023 Medications aspirin 81 mg EC tablet Take 1 tablet (81 mg) by mouth once daily. Active ezetimibe (Zetia) 10 mg tablet Take 1 tablet (10 mg) by mouth once daily. Active hydroCHLOROthiazide (HYDRODiuril) 25 mg tablet Take 1 tablet (25 mg) by mouth once daily. 1 Active omega-3 fatty acids-fish oil (One-Per-Day Ford-3) 684-1,200 mg capsule Take as directed Active omeprazole (PriLOSEC) [address] capsule Take 1 capsule (20 mg) by mouth once daily. 2 Active tamsulosin (Flomax) 0.4 mg 24 hr capsule Take 2 capsules (0.8 mg) by mouth once daily. 1 Active magnesium oxide (Mag-Ox) 250 mg magnesium tablet Take 1 tablet (250 mg) by mouth once daily. Active cholecalciferol (Vitamin D-3) 50 MCG (2000 UT) tablet Take 1 tablet (50 mcg) by mouth once daily. Active vitamin E 180 mg (400 unit) capsule Take 1 capsule (400 Units) by mouth once daily. Active zinc gluconate 30 mg tablet Take 1 tablet (30 mg) by mouth once daily. Active multivitamin (MULTIPLE VITAMINS ORAL) 1 tablet once daily. 7 Active losartan (Cozaar) 50 mg tabletIndications:E ssential hypertension TAKE 1 TABLET DAILY (NEW DOSE) 90 tablet 3 4 Active rosuvastatin (Crestor) 40 mg tabletIndications:C oronary artery disease involving moapa coronary artery of moapa heart without angina pectoris,Mixed hyperlipidemia Take 1 tablet (40 mg) by mouth once daily. 90 tablet 3 4 Active carvedilol (Coreg) 6.25 mg tabletIndications:I schemic cardiomyopathy,Esse ntial hypertension Take 1 tablet (6.25 mg) by mouth 2 times daily (morning and late afternoon). 180 tablet 3 4 12/06/19 25 Active nitroglycerin (Nitrostat) 0.4 mg SL tabletIndications:C oronary artery disease involving moapa coronary artery of moapa heart without angina pectoris Place 1 tablet (0.4 mg) under the tongue every 5 minutes if needed for chest pain. May repeat dose every 5 minutes for up to 3 doses total. 25 tablet 11 4 Active Active Problems Problem Noted Date Diagnosed Date BMI 36.0-36.9,adult 05/15/2024 CAD (coronary artery disease) 02/13/2023 Esophageal reflux 02/13/2023 Essential hypertension 02/13/2023 Hyperlipidemia 02/13/2023 Ischemic cardiomyopathy 02/13/2023 Status post coronary artery stent placement 01/26 Former smoker 02/13/2023 Class 2 obesity in adult 02/13/2023 Encounters Date Type Department Care Team Description 10/17/[address] [address] Orquidea Sapp RN from Last 3 Months Immunizations Immunization Administration Dates Next Due Flu vaccine, trivalent, pres ervative free, age 6 months and greater (Fluarix/Fluzone/Flulaval) 08/16/2018,03/28/2010 Influenza, Unspecified 03/28/2019,05/28/2010 Influenza, trivalent, adjuvanted 04/16/2019 Pneumococcal conjugate vaccine, 13-valent (PREVN AR 13) 08/16/2018 Pneumococcal polysaccharide vaccine, 23-valent, age 2 years and older (PNEUMOVAX 23) 05/28/2018,09/30/2012 Tdap vaccine, age 7 year and older (BOOSTRIX, AD ACEL) 08/10/2017 Zoster, live 12/21/2016 Family History Medical History Relation Name Comments AAA Father arteriosclerotic cardiovascular disease Father Relation Name Status Comments Father Social History Tobacco Use Types Packs/Day Years [...] Sign Reading Time Taken Comments Blood Pressure 124/66 05/15/2024 8:53 AM EST Pulse 60 05/15/2024 8:53 AM EST Temperature - - Respiratory Rate - - Oxygen Saturation - - Inhaled Oxygen Concentration - - Weight 108 kg (238 lb 9.6 oz) 05/15/2024 8:53 AM EST Height 172.7 cm (5' 8 ) 05/15/2024 8:53 AM EST Body Mass Index 36.28 05/15/2024 8:53 AM EST Plan of Treatment Upcoming Encounters Date Type Department Care Team (Late st Contact Info) Description 10/24/2024 10:00 AM EDT Office Visit [address] [phone] Penelope Richmond, STILE RIPSAW OPERATOR-EVP HEAD OF [employer] [address] [facility] 2, [address] [address] 01/06/2025 10:20 AM EDT Office Visit [address] [address] Rene Castro MD [address] [facility] 2, [address] [phone] Maintenance Due Date Last Done Comments CT Colonography 1953 Creatinine Level 1953 FIT-DNA (Cologuard) 1953 FIT 1953 Potassium Level 1953 Sigmoidoscopy 1953 Diabetes Screening 1971 Hepatitis C Screening 1971 RSV High Risk: (Elderly (60+) or Population) (1 - Risk 60-74 years 1-dose series) 2013 Zoster Vaccines (2 of 3) 02/15/2017 12/21/2016 Abdominal Aortic Aneurysm (AAA) Screening 2018 Medicare Annual Wellness Visit (AWV) 08/02/2022 08/01/2021, 08/02/2020, 07/07/2019 COVID-19 Vaccine (1 - season) 2024 Echocardiogram 03/20/2024 03/20/2023 Influenza Vaccine (Season Ended) 2025 04/16/2019, 03/28/2019, 08/16/2018, Additional history exists DTaP/Tdap/Td Vaccines (2 - Td or Tdap) 08/11/2027 08/10/2017, 2007 Lipid Panel 09/13/2028 09/14/2023 Colonoscopy 07/27/2029 07/28/2019 Colorectal Cancer Screening 07/27/2029 Pneumococcal Vaccine Completed 08/16/2018, 05/28/2018, 09/30/2012, Additional history exists HIB Vaccines Aged Out No longer eligi ble based on patient's age to complete this topic HPV Vaccines Aged Out No longer eligi ble based on patient's age to complete this topic Hepatitis A Vaccines Aged Out No long er eligible based on patient's age to complete this topic Hepatitis B Vaccines Aged Out No long er eligible based on patient's age to complete this topic IPV Vaccines Aged Out No longer eligi ble based on patient's age to complete this topic Meningococcal Vaccine Aged Out No maria esther iesha eligible based on patient's age to complete this topic Rotavirus Vaccines Aged Out No longer eligible based on patient's age to complete this topic Procedures Procedure Name Priority Date/Time Associated Diagnosis Comments ECHOCARDIOGRAM 03/20/2023 12:17 PM EDT from Last 3 Months or Most Recently Relevant to Health Maintenance Results * ECHOCARDIOGRAM (03/20/2023 12:17 PM EDT) Narrative 03/20/2023 12:17 PM EDT Ordered by an unspecified provider. us Generic Provider Scanning CV ECHO PROCEDURES Fin al Result from Last 3 Months or Most Recently Relevant to Health Maintenance Insurance [employer] Care Teams Sales And Marketing Manager Relationship Specialty Start Date End Date Chun Hobbs MD [address] [place] [address] PCP - General 02/16/21
--- OUTSIDE RECORDS SUMMARY | 2024-10-21 07:24 | XMS_ITS | Encounter Summary ---
Author Organization [facility] Address [address] [place] [address] Phone Care Team Providers Care Timber Estimator Name Role Phone Chun Hobbs MD Primary Care Provider [phone] Encounter Details Date Type Department Care Team (Late Contact Info) Description 10/17/[address] [address] Orquidea Sapp, RN Social History Tobacco Use Types Packs/Day Years [...] Description 10/24/2024 10:00 AM EDT Office Visit [address] [place] [address] Penelope Richmond, SOLID WASTE LANDFILL TECHNICIAN-RETAIL ADVERTISING SALES MANAGER [address] [facility] [address] [place] [address] 01/06/2025 10:20 AM EDT Office Visit [address] [place] [address] Rene Castro MD [address] [facility] [address] [place] [address] documented as of this encounter Visit Diagnoses Not on filedocumented in this encounter Additional Health Concerns Assessment Noted Time A fall risk assessment has been complete d for the patient 05/15/2024 8:53 AM EST documented as of this encounter Care Teams Timber Estimator Relationship Specialty Start Date End Date Chun Hobbs MD [address] [place] [id number] PCP - General 02/16/21 documented as of this encounter
--- OUTSIDE RECORDS SUMMARY | 2024-10-21 07:24 | XMS_ITS | Encounter Summary ---
Author Organization [facility] Address [address] [place] [address] Phone Care Team Providers Care School Admissions Representative Name Role Phone Chun Hobbs MD Primary Care Provider [phone] Encounter Details Date Type Department Care Team (Late st Contact Info) Description 01/03/2023 Scanned Document [facility] [address] [place] [address] Conversion, Onbase Social History Tobacco Use Types [...] 10/24/2024 10:00 AM EDT Office Visit [address] [phone] Penelope Richmond, SUPERVISOR COSTUMING-FUSING FURNACE LOADER 703 [facility] 2, [address] [address] 01/06/2025 10:20 AM EDT Office Visit [address] [phone] Rene Castro MD 703 [facility] 2, [address] [address] documented as of this encounter Procedures Procedure Name Priority Date/Time Associated Diagnosis Comments OUTSIDE IMAGING SCAN 01/03/2023 documented in this encounter Results * OUTSIDE IMAGING SCAN (01/03/2023) Anatomical Region Laterality Modality Other Narrative 01/03/2023 Ordered by an unspecified provider. us Onbase Conversion OUTSIDE SCAN Final Result documented in this encounter Visit Diagnoses Not on filedocumented in this encounter Care Teams School Admissions Representative Relationship Specialty Start Date End Date Chun Hobbs MD [address] [place] [phone] PCP - General 02/16/21 documented as of this encounter
--- OUTSIDE RECORDS SUMMARY | 2024-10-21 07:24 | XMS_ITS | Encounter Summary ---
Author Organization [facility] Address [address] [place] [address] Care Team Providers Care Technician Support Engineer Name Role Phone Chun Hobbs MD Unavailable [phone] Chun Hobbs MD Primary Care Provider [phone] Tootie Jacobson RN Unavailable [phone] Rene Castro MD Unavailable [phone] Orquidea Carreon RN Unavailable [phone] Orquidea Shah RN Unavailable Unavailable Evens Morgan DO Unavailable [phone] John Baptiste MD Unavailable [phone] Jessica Jenkins GARAGE SUPERVISOR Unavailable [phone] Unallocated, Noms Provider Primary Care Provi gonzales Torres Klein MD Primary Care Provider [phone] Encounter Details Date Type Department Care Team (Late st Contact Info) Description 07/31/2023 Orders Only [facility] [address] [place] [phone] A, Unknown Practice [address] [place] [address] Social History Tobacco Use Types Packs/Day [...] Start Date Job End Date 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), 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 Not on file Not on file documented as of this encounter Plan of Treatment Not on file documented as of this encounter Procedures Procedure Name Priority Date/Time Associated Diagnosis Comments XR CHEST 1 VIEW Routine 07/24/2023 8:[address] CHEST WO IV CONTRAST Routine 07/22/2023 8:58 AM EST SCANNED LABS Routine 07/22/2023 8:57 AM EST documented in this encounter Results * XR chest 1 view (07/24/2023 8:59 AM EST) Anatomical Region Laterality Modality Chest Radiographic Maribel ging us Unknown Practice A IMG XR PROCEDURES Final Resul t * CT chest wo IV contrast (07/22/2023 8:58 AM EST) Anatomical Region Laterality Modality Body, Chest Computed Tomogra phy us Unknown Practice A IMG CT PROCEDURES Final Resul t * SCANNED LABS (07/22/2023 8:57 AM EST) us Unknown Practice A LAB CHG PERFORMABLES Final Re sult documented in this encounter Visit Diagnoses Not on filedocumented in this encounter Care Teams Technician Support Engineer Relationship Specialty Start Date End Date Chun Hobbs MD [address] [place] [address] PCP - [employer] 05/28/22 Chun Hobbs MD [address] [place] [address] PCP - General Internal Medicine 10/03/22 10/06/24 Unallocated, Noms Provider, [place] [address] PCP - General Family Medicine 10/07/24 10/16/24 Torres Klein MD [address] [facility] [place] [address] PCP - General Family Medicine 10/17/24 Tootie Jacobson, DOUG [address] [place] [address] Registered Nurse Internal Medicine 08/10/23 03/28/24 Rene Castro MD 703 [facility] 2, [address] [place] [address] Referring Physician Cardiology 09/05/23 Orquidea Carreon, DOUG Registered Nurse Family Medicine 03/28/24 06/03/24 Orquidea Shah RN Registered Nurse Internal Medicine 06/03/24 10/07/24 Evens Morgan DO 703 [facility] [address] [place] [phone] Referring Physician Pulmonary Disease 09/24/24 John Baptiste MD [address] [place] [address] Referring Physician Urology 09/24/24 Jessica Jenkins NP [address] [facility] [address] [place] [address] Nurse Practitioner Family Medicine 09/24/24 [facility] 09/24/24 documented as of this encounter
--- OUTSIDE RECORDS SUMMARY | 2024-10-21 07:24 | XMS_ITS | Encounter Summary ---
Author Organization [facility] Address [address] [place] [address] Care Team Providers Care Celery Stripper Name Role Phone Chun Hobbs MD Primary Care Provider [phone] Encounter Details Date Type Department Care Team (Late st Contact Info) Description 06/28/2023 Orders Only [facility] [address] [facility] [address] [place] [address] Provider, MD Tanja Social History Tobacco Use Types Packs/Day Years [...] Priority Date/Time Associated Diagnosis Comments XR CHEST (2 VW) Routine 06/14/2023 1:31 PM EST documented in this encounter Results * XR CHEST (2 VW) (06/14/2023 1:31 PM EST) Anatomical Region Laterality Modality Chest Radiographic Maribel ging Chest Historical Provider MD [facility]ER[facility] Final Result documented in this encounter Visit Diagnoses Not on filedocumented in this encounter Care Teams Celery Stripper Relationship Specialty Start Date End Date Chun Hobbs MD [address] [place] [address] PCP - General 10/15/23 documented as of this encounter
--- OUTSIDE RECORDS SUMMARY | 2024-10-21 07:24 | XMS_ITS | Encounter Summary ---
Author Organization [facility] Address [address] [place] [address] Care Team Providers Care Auction Block Clerk Name Role Phone Chun Hobbs MD Unavailable [phone] Chun Hobbs MD Primary Care Provider [phone] Tootie Jacobson RN Unavailable [phone] Tootie Jacobson RN Unavailable [phone] Rene Castro MD Unavailable [phone] Orquidea Carreon RN Unavailable [phone] Orquidea Shah RN Unavailable Unavailable Evens Morgan DO Unavailable [phone] John Baptiste MD Unavailable [phone] Jessica Jenkins HAND TWISTER Unavailable [phone] Unallocated, Noms Provider Primary Care Provi gonzales Torres Klein MD Primary Care Provider [phone] Encounter Details Date Type Department Care Team (Late st Contact Info) Description 06/27/2023 Orders Only [facility] [address] [place] [phone] A, Unknown Practice [address] [place] [address] Social History Tobacco Use Types Packs/Day [...] Date Job End Date 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), 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 Not on file Not on file documented as of this encounter Plan of Treatment Not on file documented as of this encounter Procedures Procedure Name Priority Date/Time Associated Diagnosis Comments XR CHEST 2 VIEWS Routine 06/14/2023 2:09 PM EST SCANNED LABS Routine 06/14/2023 2:07 PM EST documented in this encounter Results * XR chest 2 views (06/14/2023 2:09 PM EST) Anatomical Region Laterality Modality Chest Radiographic Maribel ging us Unknown Practice A IMG XR PROCEDURES Final Resul t * SCANNED LABS (06/14/2023 2:07 PM EST) us Unknown Practice A LAB CHG PERFORMABLES Final Re sult documented in this encounter Visit Diagnoses Not on filedocumented in this encounter Care Teams Auction Block Clerk Relationship Specialty Start Date End Date Chun Hobbs MD [address] [place] [address] PCP - Hum[employer] 05/28/22 Chun Hobbs MD [address] [place] [address] PCP - General Internal Medicine 10/03/22 10/06/24 Unallocated, [place] [address] PCP - General Family Medicine 10/07/24 10/16/24 Torres Klein MD [address] [place] [address] PCP - General Family Medicine 10/17/24 Tootie Jacobson, DOUG [address] [facility] [place] [address] Registered Nurse Internal Medicine 07/03/23 07/12/23 Tootie Jacobson RN [address] [place] [address] Registered Nurse Internal Medicine 08/10/23 03/28/24 Rnee Castro MD 703 [facility] 2, [address] [place] [address] Referring Physician Cardiology 09/05/23 Orquidea Carreon, DOUG Registered Nurse Family Medicine 03/28/24 06/03/24 Orquidea Shah RN Registered Nurse Internal Medicine 06/03/24 10/07/24 Evens Morgan DO 703 [facility] [address] [place] [address] Referring Physician Pulmonary Disease 09/24/24 John Baptiste MD [address] [place] [address] Referring Physician Urology 09/24/24 Jessica Jenkins NP [address] [facility] [address] [place] [address] Nurse Practitioner Family Medicine 09/24/24 [facility] 09/24/24 documented as of this encounter
--- OUTSIDE RECORDS SUMMARY | 2024-10-21 07:24 | XMS_ITS | Encounter Summary ---
Author Organization [facility] Address [address] [place] [address] Care Team Providers Care Consumer Marketing Manager Name Role Phone Chun Hobbs MD Unavailable [phone] Chun Hobbs MD Primary Care Provider [phone] Tootie Jacobson RN Unavailable [phone] Rene Castro MD Unavailable [phone] Orquidea Carreon RN Unavailable [phone] Orquidea Shah RN Unavailable Unavailable Evens Morgan DO Unavailable [phone] John Baptiste MD Unavailable [phone] Jessica Jenkins LEAD ATG DEVELOPER Unavailable [phone] Unallocated, Noms Provider Primary Care Provi gonzales Torres Klein MD Primary Care Provider [phone] Encounter Details Date Type Department Care Team (Late st Contact Info) Description 07/25/2023 Orders Only [facility] [address] [place] [phone] A, Unknown Practice [address] [place] [address] Social History Tobacco Use Types Packs/Day [...] Start Date Job End Date 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), 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 Not on file Not on file documented as of this encounter Plan of Treatment Not on file documented as of this encounter Procedures Procedure Name Priority Date/Time Associated Diagnosis Comments XR CHEST 1 VIEW Routine 07/24/2023 8:40 AM EST documented in this encounter Results * XR chest 1 view (07/24/2023 8:40 AM EST) Anatomical Region Laterality Modality Chest Radiographic Maribel ging us Unknown Practice A IMG XR PROCEDURES Final Resul t documented in this encounter Visit Diagnoses Not on filedocumented in this encounter Care Teams Consumer Marketing Manager Relationship Specialty Start Date End Date Chun Hobbs MD [address] [facility] [address] [place] [address] PCP - Hum[employer] 05/28/22 Chun Hobbs MD [address] [facility] [address] [place] [address] PCP - General Internal Medicine 10/03/22 10/06/24 Unallocated, Noms MD Boby [address] [place] [address] PCP - General Family Medicine 10/07/24 10/16/24 Torres Klein MD [address] [place] [address] PCP - General Family Medicine 10/17/24 Tootie Jacobson, DOUG [address] [place] [address] Registered Nurse Internal Medicine 08/10/23 03/28/24 Rene Castro MD 703 [facility] 2, [address] [place] [address] Referring Physician Cardiology 09/05/23 Orquidea Carreon, DOUG Registered Nurse Family Medicine 03/28/24 06/03/24 Orquidea Shah, DOUG Registered Nurse Internal Medicine 06/03/24 10/07/24 Evens Morgan DO 703 [facility] [address] [place] [phone] Referring Physician Pulmonary Disease 09/24/24 John Baptiste MD [address] [facility] [place] [address] Referring Physician Urology 09/24/24 Jessica Jenkins NP [address] [facility] [address] [place] [address] Nurse Practitioner Family Medicine 09/24/24 [facility] 09/24/24 documented as of this encounter
--- OUTSIDE RECORDS SUMMARY | 2024-10-21 07:24 | XMS_ITS | Encounter Summary ---
Author Organization [facility] Address [address] [place] [address] Care Team Providers Care Research Assoc Name Role Phone Chun Hobbs MD Unavailable [phone] Rene Castro MD Unavailable [phone] Orquidea Shah RN Unavailable Unavailable Evens Morgan DO Unavailable [phone] John Baptiste MD Unavailable [phone] Jessica Jenkins RESEARCH ENVIRONMENTAL ENGINEER Unavailable [phone] Unallocated, Noms Provider Primary Care Provi gonzales Encounter Details Date Type Department Care Team (Late st Contact Info) Description 10/07/2024 Patient Outreach [facility] [address] [place] [address] Orquidea Shah, RN Social History Tobacco Use Types Packs/Day [...] Start Date Job End Date retired- [employer] (21 yrs), Not on file Not on le Not on file documented as of this encounter Progress Notes * Orquidea Shah RN - 10/07/2024 9:10 AM EDT <October 07, 2024, 09:11 - Orquidea Shah RN> Message left to return call. Pt has had 2 ER visits and a request for medical records was sent fromDr Torres Klein MD's office to Dr Hobbs's office. Left message for patient to call back to clarify. documented in this encounter Plan of Treatment Not on file documented as of this encounter Visit Diagnoses Not on filedocumented in this encounter Additional Health Concerns Assessment Noted Time PHQ-9 Depression Total Score: 1 09/20/19 24 1:00 PM EDT A fall risk assessment has been complete d for the patient 08/10/2023 1:18 PM EDT documented as of this encounter Care Teams Research Assoc Relationship Specialty Start Date End Date Chun Hobbs MD [address] [place] [address] PCP - [employer] 05/28/22 Unallocated, Noms Provider, [address] [place] [address] PCP - General Family Medicine 10/07/24 10/16/24 Rene Castro MD 703 [facility] 2, [address] [place] [address] Referring Physician Cardiology 09/05/23 Orquidea Shah RN Registered Nurse Internal Medicine 06/03/24 10/07/24 Evens Morgan DO 703 [facility] [address] [place] [phone] Referring Physician Pulmonary Disease 09/24/24 John Baptiste MD [address] [place] [address] Referring Physician Urology 09/24/24 Jessica Jenkins NP [address] [place] [address] Nurse Practitioner Family Medicine 09/24/24 [facility] 09/24/24 documented as of this encounter
--- OUTSIDE RECORDS SUMMARY | 2024-10-21 07:24 | XMS_ITS | Encounter Summary ---
Author Organization [facility] Address [address] [place] [address] Care Team Providers Care Real Estate Sales Supervisor Name Role Phone Chun Hobbs MD Unavailable [phone] Chun Hobbs MD Primary Care Provider [phone] Tootie Jacobson RN Unavailable [phone] Rene Castro MD Unavailable [phone] Orquidea Carreon RN Unavailable [phone] Orquidea Shah RN Unavailable Unavailable Evens Morgan DO Unavailable [phone] John Baptiste MD Unavailable [phone] Jessica Jenkins TRANSITION SOCIAL WORKER Unavailable [phone] Unallocated, Noms Provider Primary Care Provi gonzales Torres Klein MD Primary Care Provider [phone] Encounter Details Date Type Department Care Team (Late st Contact Info) Description 07/23/2023 Orders Only [facility] [address] [facility] [place] [phone] A, Unknown Practice [address] [place] [address] Social History Tobacco Use Types Packs/Day [...] Start Date Job End Date 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), 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 Not on file Not on file documented as of this encounter Plan of Treatment Not on file documented as of this encounter Procedures Procedure Name Priority Date/Time Associated Diagnosis Comments XR CHEST 1 VIEW Routine 07/22/2023 9:32 AM EST documented in this encounter Results * XR chest 1 view (07/22/2023 9:32 AM EST) Anatomical Region Laterality Modality Chest Radiographic Maribel ging us Unknown Practice A IMG XR PROCEDURES Final Resul t documented in this encounter Visit Diagnoses Not on filedocumented in this encounter Care Teams Real Estate Sales Supervisor Relationship Specialty Start Date End Date Chun Hobbs MD [address] [facility] [address] [place] [address] PCP - [employer] 05/28/22 Chun Hobbs MD [address] [facility] [address] [place] [address] PCP - General Internal Medicine 10/03/22 10/06/24 Unallocated, Noms MD Boby [address] [place] [address] PCP - General Family Medicine 10/07/24 10/16/24 Torres Klein MD [address] [place] [phone] PCP - General Family Medicine 10/17/24 Tootie Jacobson, DOUG [address] [place] [address] Registered Nurse Internal Medicine 08/10/23 03/28/24 Rene Castro MD 703 [facility] [address], [address] [place] [address] Referring Physician Cardiology 09/05/23 Orquidea Carreon, DOUG Registered Nurse Family Medicine 03/28/24 06/03/24 Orquidea Shah, DOUG Registered Nurse Internal Medicine 06/03/24 10/07/24 Evens Morgan DO 703 [facility] [address] [place] [phone] Referring Physician Pulmonary Disease 09/24/24 John Baptiste MD [address] [facility] [place] [address] Referring Physician Urology 09/24/24 Jessica Jenkins NP [address] [facility] [address] [place] [address] Nurse Practitioner Family Medicine 09/24/24 [facility] 09/24/24 documented as of this encounter
--- NOTE | 2024-10-21 07:44 | PM.DS1 ---
DS: Providers Provider Date of admission: 10/19/24 08:02 Primary care physician: Torres Klein MD Consults: 10/18/24 22:16 Consult to Dental Office Receptionist Routine Has provider been notified: No Reason for consult:: Durable Medical Equipment Other reason:: home oxygen eval 10/19/24 08:02 Consult to Pharmacy Routine Consulting Provider: Reason for consultation: Please [place] me when Med Rec is Updated Has provider been notified: No Occupational Therapy Eval and Treat Routine Reason for consultation: Only if needed for Rehab Has provider been notified: No Physical Therapy Eval and Treat Routine Reason for consultation: Eval and Treat Has provider been notified: No 10/21/24 10:06 Consult to Cardiology Routine Reason for consultation: chf Has provider been notified: No DS: Diagnosis Discharge Diagnosis (1) Hypoxia: (2) URI (upper respiratory infection): (3) Acute hyponatremia: (4) Congestive heart failure: (5) COPD exacerbation: (6) Chronic HFrEF (heart failure with reduced ejection fraction): (7) Acute on chronic congestive heart failure: Qualifiers: Heart failure type: combined systolic and diastolic Qualified Code(s): I50.43 - Acute on chronic combined systolic (congestive) and diastolic (congestive) heart failure (8) CAD (coronary artery disease): Qualifiers: Associated angina: without angina Coronary Disease-Associated Artery/Lesion type: [place] artery [place] vs. transplanted heart: [place] heart Qualified Code(s): I25.10 - Atherosclerotic heart disease of [place] coronary artery without angina pectoris (9) GERD (gastroesophageal reflux disease): Qualifiers: Esophagitis presence: without esophagitis Qualified Code(s): K21.9 - Gastro-esophageal reflux disease without esophagitis (10) Hypertension: Qualifiers: Hypertension type: primary hypertension Qualified Code(s): I10 - Essential (primary) hypertension (11) Moderate protein-calorie malnutrition: DS: Summary Hospital Course Hospital Course: Patient recently discharged from the hospital last at home about for 5 hours, had increasing cough and shortness of breath, presented to the emergency room with acute combined congestive heart failure, patient was diuresed over the first 2 days, diuresis of 10.8 L with a net of 8.2, also still had exacerbation of his pneumonia and acute COPD, treated initially with oral antibiotics and oral prednisone, maintain the oral prednisone due to fluid retention resulting in worsening heart failure in the past, changed antibiotics yesterday as his white blood cell count was higher, is improved today, he has been unable to be weaned off of supplemental oxygen at least for now, walk test to be completed, if stable later this morning will discharge patient to home in improving condition. Medications see list. Follow-up with us in the office this week Pclh-dd-tabm evaluation completed, patient likely needs home oxygen, see home oxygen study, benefit of ADLs less dyspnea and less likely to be readmitted to the hospital reducing risk for heart failure, patient likely mostly need this at at bedtime 2 L continuous by nasal cannula is likely, patient needs outpatient sleep study Time Spent with Patient Time attestation: Total time spent providing and/or coordinating discharge services: Exam Constitutional Vital Signs, click to edit/add: Last Vital Signs Temp 97.9 F 10/21/24 04:53 Pulse 73 10/21/24 06:00 Resp 21 H 10/21/24 04:53 BP 116/72 10/21/24 04:53 Pulse Ox 90 L 10/21/24 04:53 O2 Del Method Room Air 10/21/24 04:53 O2 Flow Rate 1 10/20/24 16:13 Documenting provider has reviewed patient's vital signs: yes Common normals: apparent distress (Mild conversational dyspnea) Chest Common normals: inspection of chest normal Respiratory Common normals: abnormal respiratory effort (Mild conversational dyspnea) Auscultation: no rales and no rhonchi Cardio Common normals: regular rate, regular rhythm and no murmurs GI Common normals: Normal to inspection, nondistended, normoactive bowel sounds present, soft to palpation and no hepatosplenomegaly Extremity Common normals: abnormal to inspection (Trace edema) DS: Data Data Completed and Pending Labs on day of discharge: Labs from last 24 hours 10/21/24 10/20/24 05:06 06:52 WBC 13.5 H RBC 5.12 Hgb 14.7 Hct 42.4 MCV 82.8 MCH 28.7 MCHC 34.7 RDW 14.6 Plt Count 210 MPV 10.0 Neut % (Auto) 75.6 H Lymph % (Auto) 14.0 L [place] % (Auto) 8.8 Eos % (Auto) 0.1 L Baso % (Auto) 0.2 Neut # (Auto) 10.2 H Lymph # (Auto) 1.9 [place] # (Auto) 1.2 H Eos # (Auto) 0.0 Baso # (Auto) 0.0 Abs Immat Gran (auto) 0.17 H Imm/Tot Granulo (auto) 1.3 H Sodium 134 L Potassium 3.7 Chloride 96 L Carbon Dioxide 27.3 Anion Gap 14.4 BUN 37.0 H Creatinine 1.37 H Est GFR ( Amer) >60 Est GFR (Non-Af Amer) 51 L BUN/Creatinine Ratio 27.0 Glucose 202 H Calcium 9.2 NT-Pro-B Natriuret Pep 72.0 Preliminary micro results at discharge 10/18/24 21:50 Blood Culture Result 2 - Preliminary Blood - Left Antecubital NO GROWTH AT 36-48 HOURS. FINAL TO FOLLOW. 10/18/24 21:45 Blood Culture Result 1 - Preliminary Blood - Left Forearm NO GROWTH AT 36-48 HOURS. FINAL TO FOLLOW. 10/19/24 12:25 Lower Respiratory Culture - Preliminary Sputum - Expectorated Sputum Discharge Plan Discharge Disposition: Home, Self-Care Discharge Medications: New fluconazole 100 mg Tablet 100 mg PO QD Qty: 10 0RF nystatin 100,000 unit/mL Suspension 500,000 unit PO QID Qty: 473 0RF benzonatate 200 mg capsule 200 mg PO TID PRN (Reason: cough) 10 Days Qty: 30 0RF levofloxacin 750 mg tablet 750 mg PO DAILY 10 Days Qty: 10 0RF Continued albuterol sulfate [Ventolin HFA] 90 mcg/actuation HFA aerosol inhaler 2 inh inhalation Q6H PRN (Reason: shortness of breath or wheezing) Qty: 6.7 0RF tamsulosin 0.4 mg capsule 0.8 mg PO .qhs omeprazole 20 mg capsule,delayed release(DR/EC) 20 mg PO Q24H PRN (Reason: heartburn) ipratropium-albuterol 0.5 mg-3 mg(2.5 mg base)/3 mL solution for nebulization 3 ml inhalation Q6H PRN (Reason: shortness of breath) Qty: 90 0RF furosemide [Lasix] 40 mg tablet 40 mg PO DAILY PRN (Reason: edema) cetirizine 10 mg Tablet 10 mg PO QD Qty: 30 11RF fluticasone propionate 50 mcg/actuation [place],Suspension 2 spray intranasal QD Qty: 16 11RF prednisone 10 mg tablet 40 mg PO DAILY Qty: 32 0RF Rx Instructions: 4/day for 3 days, 3/day for 3 days, 2/day for 3 days, 1/day for 3 days, 1/2 /day for 4 days montelukast [Singulair] 10 mg tablet 10 mg PO DAILY Qty: 30 11RF carvedilol [Coreg] 12.5 mg tablet 12.5 mg PO BID Qty: 60 11RF Rx Instructions: must administer with a meal/food spironolactone 25 mg tablet 12.5 mg PO DAILY Entresto 24-26 mg tablet 1 tab PO BID budesonide-formoterol [Breyna] 160-4.5 mcg/actuation HFA aerosol inhaler 2 inh inhalation BID fluticasone propion-salmeterol [Advair HFA] 115-21 mcg/actuation HFA aerosol inhaler 2 inh inhalation BID dapagliflozin propanediol 10 mg tablet 10 mg PO DAILY Discontinued amoxicillin-pot clavulanate 875-125 mg tablet 1 tab PO Q12H Qty: 20 0RF Patient Comments: THRU 10/23/24 Print Language: Vincentian Forms: Portal Instructions
[2024-10-21] MEDS: CEFTRIAXONE 1,000 MG in 0.9 % SODIUM CHLORIDE 50 ML 100 MG IV (10:11)
[2024-10-21] MEDS: ENOXAPARIN SODIUM 40 MG/0.4 ML SYRINGE SUBQ (10:11)
[2024-10-21] MEDS: CANAGLIFLOZIN 100 MG TABLET 300 MG PO (10:12)
[2024-10-21] MEDS: GUAIFENESIN 600 MG TAB.ER.12H 1200 MG PO (10:12)
[2024-10-21] MEDS: PREDNISONE 20 MG TABLET 40 MG PO (10:12)
[2024-10-21] MEDS: CARVEDILOL 12.5 MG TABLET PO (10:12)
[2024-10-21] MEDS: SENNOSIDES 8.6 MG TABLET 17.2 MG PO (10:12)
[2024-10-21] MEDS: SACUBITRIL/VALSARTAN 24 MG-26 MG TABLET 1 TAB PO (10:13)
[2024-10-21] MEDS: CETIRIZINE HCL 10 MG TABLET PO (10:13)
[2024-10-21] MEDS: SPIRONOLACTONE 25 MG TABLET 12.5 MG PO (10:13)
[2024-10-21] MEDS: MONTELUKAST SODIUM 10 MG TABLET PO (10:13)
[2024-10-21] MEDS: FLUCONAZOLE 100 MG TABLET 200 MG PO (10:17)
[2024-10-21] MEDS: FLUTICASONE PROPIONATE 50 MCG NASAL SPRAY 2 SPRAY NS (10:19)
[2024-10-21] MEDS: BUDESONIDE 0.5 MG/2 ML AMPULE NEB IH (11:25)
[2024-10-21] MEDS: LEVOFLOXACIN IN DEXTROSE 5 % 750 MG/150 ML PREMIX 100 MG IV (11:55)
--- NOTE | 2024-10-21 12:18 | SWNOTE1 ---
Nurse completed walk test and pt does need home oxygen. SW faxed script and walk test to Dr. Klein for him to sign.
--- NOTE | 2024-10-21 12:29 | SWNOTE1 ---
SW met with pt in room. Plan is for pt to discharge home with home oxygen. Pt was here last week and SW was setting up home oxygen through [facility] [place]. Pt is okay with this.
--- NOTE | 2024-10-21 12:30 | SWNOTE1 ---
Important Message from Medicare reviewed and discussed with patient. Pt. verbalized understanding and signed the form. Original given to patient and copy placed in patient?s chart.
--- NOTE | 2024-10-21 13:06 | SWNOTE1 ---
SW received signed script and walk test from physician. SW faxed walk test, face to face, script, and face sheet to [facility] for home oxygen.
--- NOTE | 2024-10-21 14:10 | SWNOTE1 ---
SW took oxygen tank to pt. Pt advised to call number attached to tank when he arrives home. Pt is going home on 2 liters oxygen from [facility].
--- NOTE | 2024-10-23 14:57 | CM.DCFOLLOWU ---
Person spoke with: Kwadwo How are you feeling? Feeling great How is your pain? No pain Did you understand your discharge instructions? Yes Do you have any questions about your discharge instructions? No Were you given any prescriptions at discharge? Yes Were you able to get your prescriptions filled? Yes Do you understand how to take your medications as ordered? Yes Do you have any questions about your follow up appointment and do you plan to keep your follow up appointment? No have appointment scheduled with Dr. Klein Is there anything else that you would like to discuss? No Questions/Comments/Concerns/Other:
== END 2024-10-21 16:29 | disposition home or self-care (01) | DRG 291 ==
LOC: ER 22:15 → MS 23:14
PROVIDERS: Registered Nurse; Admitting Provider Family Medicine; Emergency Provider Emergency Medicine; PCP Family Medicine; Visit Provider Family Medicine
DX: I11.0 Hypertensive heart disease with heart failure (principal); I50.43 Acute on chronic combined systolic (congestive) and diastolic (congestive) heart failure; J18.9 Pneumonia, unspecified organism; E87.1 Hypo-osmolality and hyponatremia; E44.0 Moderate protein-calorie malnutrition; J43.9 Emphysema, unspecified; J06.9 Acute upper respiratory infection, unspecified; R09.02 Hypoxemia; I25.10 Atherosclerotic heart disease of native coronary artery without angina pectoris; Z95.5 Presence of coronary angioplasty implant and graft; K21.9 Gastro-esophageal reflux disease without esophagitis; Z87.891 Personal history of nicotine dependence; Z87.01 Personal history of pneumonia (recurrent); Z86.16 Personal history of COVID-19; I25.2 Old myocardial infarction; Z68.32 Body mass index [BMI] 32.0-32.9, adult; Z99.81 Dependence on supplemental oxygen
CPT/HCPCS: 36415; 71045; 80048; 80053; 81001; 83605; 83735; 83880; 84436; 84443; 84484; 85025; 87040; 87070; 87205; 93005; 94640; 94667; 94668; 94761; 96372; 96374; 96375; 97161; 97165; 99285; G0378; J0696; J1650; J2919; J7512

== ENCOUNTER 2025-02-17 12:01 | Emergency (ER) | payer MEDICARE, OTHER, SELFPAY ==
[2025-02-17] VITALS (18 sets, daily range): BP systolic 130–152; BP diastolic 67–97; PULSE 63–79; TEMP 36.6; O2SAT 94–98; BMI 33.8
[2025-02-17 13:29] LABS: SARS-CoV-2 Ag NEGATIVE (NEGATIVE)
--- NOTE | 2025-02-17 13:58 | ECG_ITS ---
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 Measurements Intervals Binger Rate: 73 P: 58 AR: 174 QRS: 4 QRSD: 98 T: 104 QT: 404 QTc: 431 Interpretive Statements 1100 Sinus rhythm 1570 with occasional ventricular premature complexes 3613 Cannot rule out inferior myocardial infarction, probably old 9150 abnormal ECG Compared to ECG 10/18/2024 20:37:49 Ventricular premature complex(es) now present Myocardial infarct finding now present Left ventricular hypertrophy no longer present Electronically Signed On 02-17-2025 18:07:10 EDT by MELANY CHEN M.D.
--- NOTE | 2025-02-17 13:58 | XR_ITS ---
[facility] [place] [id number] Patient Name: DEMARCUS CALDERON MRN: [id number] date: 1955 Sex: M Assigned Patient Location: ED.MAIN Current Patient Location: ED.MAIN Accession/Order Number: [id number] Exam Date: 02/17/2025 14:42 Report Date: 02/17/2025 14:56 At the request of: CARLOS LYNNE Procedure: XR chest 2V Chest 2 views CLINICAL HISTORY: sob/copd COMPARISON: None FINDINGS: Cardiomegaly is present. Diffuse bronchial wall thickening/interstitial changes. No lung consolidation, pneumothorax, pleural effusion or free air. XR/XR chest 2V IMPRESSION: NO SIGNIFICANT CHANGE IN CHEST FINDINGS COMPARED TO THE PRIOR STUDY. NO CONSOLIDATION TO SUGGEST PNEUMONIA. Impression dictated by: Irina Negrete Jr.OAlexandr 02/17/2025 2:56 PM Dictation Location: [place] [address] Electronically authenticated by: [id number] Y Date: 02/17/2025 14:56
--- NOTE | 2025-02-17 14:09 | ED_ITS ---
HPI - URI/Sore Throat General Chief Complaint: Upper Respiratory Infection Stated Complaint: URTI COMPLAINTS Time Seen by Provider: 02/17/25 13:10 Source: patient Limitations: no limitations History of Present Illness HPI Narrative: 70-year-old male with a history of COPD occasional home oxygen and CHF presents to the ED with shortness of breath. He states he has been coughing up thick yellowish phlegm as well. He did try to do a albuterol treatment at home with minimal relief. He has been ill approximately a week states he feels like he is getting worse. He does not have any chest pressure or pain. He is not have any pain in his extremities. He has not found that the shortness of breath is positional. He states he has not had any worsening swelling in his legs. He does have oxygen at home that he uses intermittently he has not used it recently during this episode. He has been struggling with CHF and COPD for multiple years. Patient is been afebrile. Patient is resting in his room he was coughing fairly violently Prior to my exam and during it and producing whitish-yellow phlegm. He is very rhonchorous and crackly in the base of his lungs. He has 1+ edema bilaterally. No calf tenderness. Heart rate is normal regular rate and rhythm. He is mentating at baseline pleasant and interactive. Patient is neurologically intact. Patient was given a DuoNeb treatment as well as Solu-Medrol 125 IV. EKG showed a sinus rhythm with occasional PVC. Patient has a ventricular rate of 73 bpm, CT interval 174, QRS 98, QT/QTc of 404/431. He does not have any ST elevation. No depression. cxr clear no acute process. two set trponin unchanged, no leukocytosis, dupneb did help patient as well as solumedrol. Patient does not have hypoxia here nor did he at home, no oxygen requirement. Discussed home treatment versus observation admission. Patient feels like he would prefer to go home. will rx antibiotics, duoneb, and steroids and have him follow up with pcp in 1-2 days. 70-year-old male with a history of COPD (uses home oxygen intermittently) and CHF presents to the ED with worsening shortness of breath. He reports cough with thick yellowish sputum for approximately one week and feels his symptoms have worsened despite home albuterol treatment. He denies chest pain or pressure, extremity pain, orthopnea, or increased leg swelling. He has not required supplemental oxygen at home during this episode. No recent fever or chills. He states he has struggled with CHF and COPD for several years and recognizes this feels like an exacerbation. Related Data Home Medications ?Medication ?Instructions ?Recorded ?Confirmed omeprazole 20 mg capsule,delayed 20 mg PO Q24H PRN hea rtburn 07/22/23 02/17/25 release tamsulosin 0.4 mg capsule 0.8 mg PO .qhs 07/22/2301/27 furosemide 40 mg tablet (Lasix) 40 mg PO DAILY PRN vince ma 10/09/24 02/17/25 budesonide-formoterol HFA 160 2 inh inhalation BID 02/17/25 mcg-4.5 mcg/actuation aerosol inhaler (Breyna) dapagliflozin propanediol 10 mg 10 mg PO DAILY 5 02/17/25 tablet fluticasone propionate 115 2 inh inhalation BID 02/17/25 mcg-salmeterol 21 mcg/actuation HFA inhaler (Advair HFA) sacubitril 24 mg-valsartan 26 mg 1 tab PO BID 10/18/24 02/17/25 tablet (Entresto) spironolactone 25 mg tablet 12.5 mg PO DAILY 10/18/24 02/17/25 Previous Rx's ?Medication ?Instructions ?Recorded albuterol sulfate 90 mcg/actuation 2 inh inhalation Q6 H PRN shortness 12/25/23 aerosol inhaler (Ventolin HFA) of breath or wheezing # 6.7 grams ipratropium 0.5 mg-albuterol 3 mg 3 ml inhalation Q6H PRN shortness 02/02/24 (2.5 mg base)/3 mL nebulization of breath #90 mL soln carvedilol 12.5 mg tablet (Coreg) 12.5 mg PO BID #60 t abs 10/13/24 cetirizine 10 mg tablet 10 mg PO QD #30 tabs 5 fluticasone propionate 50 2 spray intranasal QD #16 gr ams 10/13/24 mcg/actuation nasal spray,suspension montelukast 10 mg tablet 10 mg PO DAILY #30 tabs 09/25 02/19 (Singulair) benzonatate 200 mg capsule 200 mg PO TID PRN cough 10 days 10/21/24 #30 caps fluconazole 100 mg tablet 100 mg PO QD #10 tabs levofloxacin 750 mg tablet 750 mg PO DAILY 10 days #10 tabs 10/21/24 amoxicillin 875 mg-potassium 1 tab PO BID #20 tabs clavulanate 125 mg tablet ipratropium 0.5 mg-albuterol 3 mg 3 ml inhalation Q8H PRN wheezing 5 02/17/25 (2.5 mg base)/3 mL nebulization days #90 mL soln prednisone 20 mg tablet 20 mg PO BID 5 days #10 tabs 02/17/25 Allergies Allergy/AdvReac Type Severity Reaction Status Date / Time codeine AdvReac Intermediate Hallucinati Verified 02/17/25 12:39 [facility] Medical History Pneumonia due to COVID-19 virus ?U07.1 - COVID-19 (ICD-10) ?J12.82 - Pneumonia due to coronavirus disease 2019 (ICD-10) COVID-19 ?U07.1 - COVID-19 (ICD-10) Acute on chronic congestive heart failure ?I50.9 - Heart failure, unspecified (ICD-10) COPD exacerbation ?J44.1 - Chronic obstructive pulmonary disease with (acute) exacerbation (ICD-10) Congestive heart failure ?I50.9 - Heart failure, unspecified (ICD-10) BPH (benign prostatic hyperplasia) ?N40.0 - Benign prostatic hyperplasia without lower urinary tract symptoms (ICD-10) CAD (coronary artery disease) ?I25.10 - Atherosclerotic heart disease of [place] coronary artery without angina pectoris (ICD-10) GERD (gastroesophageal reflux disease) ?K21.9 - Gastro-esophageal reflux disease without esophagitis (ICD-10) Hypertension ?I10 - Essential (primary) hypertension (ICD-10) COPD (chronic obstructive pulmonary disease) ?J44.9 - Chronic obstructive pulmonary disease, unspecified (ICD-10) Bronchitis ?J40 - Bronchitis, not specified as acute or chronic (ICD-10) Emphysema of lung ?J43.9 - Emphysema, unspecified (ICD-10) Heart attack ?I21.9 - Acute myocardial infarction, unspecified (ICD-10) COPD exacerbation ?J44.1 - Chronic obstructive pulmonary disease with (acute) exacerbation (ICD-10) COVID-19 ?U07.1 - COVID-19 (ICD-10) Surgical History H/O sinus surgery ?Z98.890 - Other specified postprocedural states (ICD-10) H/O shoulder surgery ?Z98.890 - Other specified postprocedural states (ICD-10) H/O heart artery stent ?Z95.5 - Presence of coronary angioplasty implant and graft (ICD-10) Family History Aunt Family history of cancer Mother Family history of diabetes mellitus Brother Family history of hypertension Father Family history of hypertension Social History Within the past year, how often did you have a drink containing alcohol: never Score interpretation: A score less than 4 is consistent with normal alcohol consumption. Smoking status: Former smoker Non-prescribed substance use: denies use Previous occupational history: [employer] Known occupational exposures/hazards: No Highest level of school completed/degree received: high school graduate Are you now , , , , never or living with a partner: In a typical week, how many times do you talk on the telephone with family, friends, or neighbors: 3 or more times per week How often do you get together with friends or relatives: 3 or more times per week How often do you attend cheondoism or tenriism services: never Little interest or pleasure in doing things: not at all Feeling down, depressed, or hopeless: not at all Feel stressed/tense/nervous/anxious/difficulty sleeping: not at all Do you think of yourself as: straight/heterosexual Gender Identity: male Exam Narrative Exam Narrative: General: Awake, alert, pleasant, interactive, not in acute distress. Respiratory: Frequent productive cough during exam, producing whitish-yellow sputum. Diffuse rhonchi and coarse crackles at lung bases. No accessory muscle use. Cardiac: Normal rate, regular rhythm, no murmurs or gallops. Extremities: 1+ bilateral lower extremity edema. No calf tenderness. Neuro: Mentation at baseline, no focal deficits. HEENT: No JVD, mucous membranes moist. Skin: Warm, well-perfused, no cyanosis. Constitutional Vital Signs, click to edit/add: Last Vital Signs Temp 97.8 F 02/17/25 12:49 Pulse 68 02/17/25 16:00 Resp 20 02/17/25 15:50 BP 151/97 H 02/17/25 16:00 Pulse Ox 96 02/17/25 16:00 O2 Del Method Room Air 02/17/25 14:26 Course Vital Signs Vital signs: Vital Signs Temperature 97.8 F 02/17/25 12:49 Pulse Rate 70 02/17/25 12:49 Respiratory Rate 20 02/17/25 12:49 Blood Pressure 133/67 02/17/25 12:49 Pulse Oximetry 97 02/17/25 12:49 Oxygen Delivery Method Room Air 02/17/25 12:49 Temperature 97.8 F 02/17/25 12:49 Pulse Rate 68 02/17/25 16:00 Respiratory Rate 02/17/25 15:50 Blood Pressure 151/97 H 02/17/25 16:00 Pulse Oximetry 96 02/17/25 16:00 Oxygen Delivery Method Room Air 02/17/25 14:26 MDM - URI/Sore Throat MDM Narrative Medical decision making narrative: This is a 70-year-old male with a history of COPD and CHF presenting with a week of worsening cough and shortness of breath, producing thick yellow sputum. He was afebrile and hemodynamically stable on arrival, not requiring supplemental oxygen. Exam notable for diffuse rhonchi and crackles at the lung bases with mild bilateral leg edema. Differential diagnosis included COPD exacerbation, pneumonia, CHF exacerbation, ACS, and PE. Workup included CXR, which showed no infiltrate, effusion, or edema, and EKG showing sinus rhythm with occasional PVCs but no ischemic changes. Two serial troponins were negative and unchanged, and labs were without leukocytosis. DuoNeb and IV Solu-Medrol were given in the ED with improvement in symptoms. Given his stable vitals, lack of hypoxia, reassuring cardiac and infectious workup, and good response to therapy, presentation is most consistent with a COPD exacerbation without evidence of pneumonia or CHF decompensation. Admission for observation was considered but, after shared decision-making, patient preferred discharge with close follow-up. He was prescribed oral steroids, antibiotics, and DuoNeb for home use and was advised to follow up with his PCP in 1?2 days. Strict return precautions were discussed, including worsening dyspnea, fever, chest pain, or hypoxia. Differential Diagnosis Differential diagnosis: Likely upper respiratory infection, viral infection, bronchitis and influenza Medical Records Attestation: I reviewed the patient's medical records. Lab Data Attestation: I reviewed the patient's lab results. Labs: Lab Results 02/17/25 02/17/25 02/17/25 Range/Units 12:05 13:50 14:56 WBC 8.1 (4.0-11.0) 10^3/uL RBC 5.28 (4.70-6.10) 10^6/uL Hgb 14.4 (14.0-18.0) g/dL Hct 43.5 (42.0-54.0) % MCV 82.4 (80.0-94.0) fL MCH 27.3 (25.9-34.0) pg MCHC 33.1 (29.9-35.2) g/dL RDW 14.2 (11.0-15.0) % Plt Count 226 (150-450) 10^3/uL MPV 10.3 (9.5-13.5) fL Neut % (Auto) 56.8 (43.0-75.0) % Lymph % (Auto) 19.4 L (20.5-60.0) % [place] % (Auto) 13.8 H (1.7-12.0) % Eos % (Auto) 8.9 H (0.9-7.0) % Baso % (Auto) 0.9 (0.2-2.0) % Neut # (Auto) 4.6 (1.4-6.5) 10^3/uL Lymph # (Auto) 1.6 (1.2-3.8) 10^3/uL [place] # (Auto) 1.1 H (0.3-0.8) 10^3/uL Eos # (Auto) 0.7 (0.0-0.7) 10^3/uL Baso # (Auto) 0.1 (0.0-0.1) 10^3/uL Abs Immat Gran (auto) 0.02 (0.00-0.03) 10^3/uL Imm/Tot Granulo (auto) 0.2 (0.0-0.5) % Sodium 137 (136-145) mmol/L Potassium 3.7 (3.5-5.1) mmol/L Chloride 103 (98-107) mmol/L Carbon Dioxide 25.1 (21.0-32.0) mmol/L Anion Gap 12.6 BUN 14.0 (7.0-18.0) mg/dL Creatinine 0.91 (0.70-1.30) mg/dL Est GFR ( Amer) >60 (>=60 mL/min/1.73m^2) Est GFR (Non-Af Amer) >60 (>=60 mL/min/1.73m^2) BUN/Creatinine Ratio 15.4 Glucose 106 (74-106) mg/dL Lactate 1.5 (0.4-2.0) mmol/L Calcium 8.9 (8.5-10.1) mg/dL Troponin I High Sens 16.3 16.5 (4.0-76.1) pg/mL NT-Pro-B Natriuret Pep 679.0 (<=900.0) pg/mL Influenza Type A Ag Influenza Type B Ag SARS-CoV-2 Ag (CV2AG) Negative (NEGATIVE) 02/17/25 Range/Units 15:48 WBC (4.0-11.0) 10^3/uL RBC (4.70-6.10) 10^6/uL Hgb (14.0-18.0) g/dL Hct (42.0-54.0) % MCV (80.0-94.0) fL MCH (25.9-34.0) pg MCHC (29.9-35.2) g/dL RDW (11.0-15.0) % Plt Count (150-450) 10^3/uL MPV (9.5-13.5) fL Neut % (Auto) (43.0-75.0) % Lymph % (Auto) (20.5-60.0) % [place] % (Auto) (1.7-12.0) % Eos % (Auto) (0.9-7.0) % Baso % (Auto) (0.2-2.0) % Neut # (Auto) (1.4-6.5) 10^3/uL Lymph # (Auto) (1.2-3.8) 10^3/uL [place] # (Auto) (0.3-0.8) 10^3/uL Eos # (Auto) (0.0-0.7) 10^3/uL Baso # (Auto) (0.0-0.1) 10^3/uL Abs Immat Gran (auto) (0.00-0.03) 10^3/uL Imm/Tot Granulo (auto) (0.0-0.5) % Sodium (136-145) mmol/L Potassium (3.5-5.1) mmol/L Chloride (98-107) mmol/L Carbon Dioxide (21.0-32.0) mmol/L Anion Gap BUN (7.0-18.0) mg/dL Creatinine (0.70-1.30) mg/dL Est GFR ( Amer) (>=60 mL/min/1.73m^2) Est GFR (Non-Af Amer) (>=60 mL/min/1.73m^2) BUN/Creatinine Ratio Glucose (74-106) mg/dL Lactate (0.4-2.0) mmol/L Calcium (8.5-10.1) mg/dL Troponin I High Sens (4.0-76.1) pg/mL NT-Pro-B Natriuret Pep (<=900.0) pg/mL Influenza Type A Ag Negative Influenza Type B Ag Negative SARS-CoV-2 Ag (CV2AG) (NEGATIVE) Imaging Data Chest x-ray: Radiologist's impression: ITS Impressions Chest X-Ray 02/17/25 13:58 IMPRESSION: NO SIGNIFICANT CHANGE IN CHEST FINDINGS COMPARED TO THE PRIOR STUDY. NO CONSOLIDATION TO SUGGEST PNEUMONIA. Impression dictated by: Jd Quinn Jr., D.O. 02/17/2025 2:56 PM Dictation Location: [place] [address] Electronically authenticated by: [id number] Y Date: 02/17/2025 14:56 ECG Data Attestation: ?I have reviewed the pertinent ECG results. ECG interpretation date: 02/17/25 Discharge Plan Discharge Chief Complaint: Upper Respiratory Infection Clinical Impression: Acute exacerbation of chronic obstructive pulmonary disease Patient Disposition: Home, Self-Care Time of Disposition Decision: 16:00 Condition: Good Prescriptions / Home Meds: New prednisone 20 mg tablet 20 mg PO BID 5 Days Qty: 10 0RF ipratropium-albuterol 0.5 mg-3 mg(2.5 mg base)/3 mL solution for nebulization 3 ml inhalation Q8H PRN (Reason: wheezing) 5 Days Qty: 90 0RF amoxicillin-pot clavulanate 875-125 mg tablet 1 tab PO BID Qty: 20 0RF No Action albuterol sulfate [Ventolin HFA] 90 mcg/actuation HFA aerosol inhaler 2 inh inhalation Q6H PRN (Reason: shortness of breath or wheezing) Qty: 6.7 0RF tamsulosin 0.4 mg capsule 0.8 mg PO .qhs omeprazole 20 mg capsule,delayed release(DR/EC) 20 mg PO Q24H PRN (Reason: heartburn) ipratropium-albuterol 0.5 mg-3 mg(2.5 mg base)/3 mL solution for nebulization 3 ml inhalation Q6H PRN (Reason: shortness of breath) Qty: 90 0RF furosemide [Lasix] 40 mg tablet 40 mg PO DAILY PRN (Reason: edema) cetirizine 10 mg Tablet 10 mg PO QD Qty: 30 11RF fluticasone propionate 50 mcg/actuation [place],Suspension 2 spray intranasal QD Qty: 16 11RF montelukast [Singulair] 10 mg tablet 10 mg PO DAILY Qty: 30 11RF carvedilol [Coreg] 12.5 mg tablet 12.5 mg PO BID Qty: 60 11RF Rx Instructions: must administer with a meal/food spironolactone 25 mg tablet 12.5 mg PO DAILY sacubitril-valsartan [Entresto] 24-26 mg tablet 1 tab PO BID budesonide-formoterol [Breyna] 160-4.5 mcg/actuation HFA aerosol inhaler 2 inh inhalation BID fluticasone propion-salmeterol [Advair HFA] 115-21 mcg/actuation HFA aerosol inhaler 2 inh inhalation BID dapagliflozin propanediol 10 mg tablet 10 mg PO DAILY fluconazole 100 mg Tablet 100 mg PO QD Qty: 10 0RF benzonatate 200 mg capsule 200 mg PO TID PRN (Reason: cough) 10 Days Qty: 30 0RF levofloxacin 750 mg tablet 750 mg PO DAILY 10 Days Qty: 10 0RF Print Language: U[place] Instructions: COPD (Chronic Obstructive Pulmonary Disease) (ED) Additional Instructions: Reason for Visit: You were seen today for shortness of breath and cough. Your symptoms are most consistent with a COPD flare (exacerbation). Your chest X-ray was clear, your heart tests and blood work were normal, and your oxygen levels stayed good while you were here. What We Did: * Gave you a breathing treatment (DuoNeb) and IV steroid (Solu-Medrol), which improved your breathing. * Checked your heart (EKG, blood tests) and chest X-ray ? no heart attack, no pneumonia, no fluid in the lungs. * Reviewed your home oxygen use and medications. Medications to Take at Home: * Antibiotic: Take exactly as prescribed until finished. * Steroid taper: Take as directed each day until complete. * DuoNeb / inhalers: Use every 4?6 hours as needed for cough or wheezing. * Continue your usual inhalers and heart medications unless told otherwise. Self-Care: * Rest and stay hydrated. * Avoid smoke, strong fumes, and sick contacts. * Keep using your home oxygen if your levels drop or if recommended by your doctor. When to Call Your Doctor or Return to the ER: * Worsening shortness of breath or wheezing * New chest pain, fainting, or rapid heartbeat * Coughing up blood or change in sputum to thick green/brown with fever * Blue lips or fingers, confusion, or severe weakness * Oxygen level below what your doctor recommends Follow-Up: See your primary care provider or lung specialist within 1?2 days for re-check and to make sure you are improving. Referrals: Torres Klein MD [Primary Care Provider, [facility]] - 1 week Discharge Date/Time: 02/17/25 16:30
[2025-02-17] MEDS: METHYLPREDNISOLONE SOD SUCC PF 125 MG/2 ML VIAL IVP (14:10)
[2025-02-17 14:13] LABS: Hematocrit 43.5 % (42.0-54.0); Hemoglobin 14.4 g/dL (14.0-18.0); Immature Granulocytes Abs Auto 0.02 10^3/uL (0.00-0.03); Immature Granulocytes Pct Auto 0.2 % (0.0-0.5); Lymphocytes Absolute Auto 1.6 10^3/uL (1.2-3.8); Mean Corpuscular HGB Conc 33.1 g/dL (29.9-35.2); Mean Corpuscular Hemoglobin 27.3 pg (25.9-34.0); Mean Corpuscular Volume 82.4 fL (80.0-94.0); Platelet Count 226 10^3/uL (150-450); Red Blood Count 5.28 10^6/uL (4.70-6.10); White Blood Count 8.1 10^3/uL (4.0-11.0)
[2025-02-17] MEDS: IPRATROPIUM/ALBUTEROL SULFATE 3 ML AMPUL.NEB IH (14:25)
[2025-02-17 14:38] LABS: Lactate/Lactic Acid 1.5 mmol/L (0.4-2.0)
[2025-02-17 14:46] LABS: Anion Gap 12.6; Blood Urea Nitrogen 14.0 mg/dL (7.0-18.0); Calcium 8.9 mg/dL (8.5-10.1); Carbon Dioxide 25.1 mmol/L (21.0-32.0); Chloride 103 mmol/L (98-107); Estimated GFR (African America >60 (>=60 mL/min/1.73m^2); Estimated GFR (Non-African Ame >60 (>=60 mL/min/1.73m^2); Glucose 106 mg/dL (74-106); NT Pro B Type Natriuretic Pept 679.0 pg/mL (<=900.0); Potassium 3.7 mmol/L (3.5-5.1); Sodium 137 mmol/L (136-145)
--- OUTSIDE RECORDS SUMMARY | 2025-02-17 14:49 | XMS_ITS | CCD ---
Author Organization [facility] Care Team Providers Care Internet Technology Manager Name Role Phone Sera Flower Unavailable Unavailable Unavailable Unavailable Primary Care Provider Unavailabl e Unavailable Unavailable DEANDRA BENDER Attending Unavailable DEANDRA BENDER Referring Unavailable MAU RANDLE Attending Unavailable DEANRDA BENDER Attending Unavailable DEANDRA BENDER Attending Unavailable DEANDRA BENDER Referring Unavailable MD Sera Flower Primary Care Provider [phone] MD Sera Flower Other Provider MD Rene Cortez Attending Provider Dr. Sera Flower Primary Care Unavailab Rene Nobles Referring Unavailable Ching, Dr. Sera Frost Primary Care Unavailab Rene Nobles Attending Unavailable Dr. Sera Flower Primary Care Unavailab Rene Nobles Attending Unavailable Ching, Dr. Sera Frost Primary Care Unavailab Rene Nobles Attending Unavailable Sera Flower MD Primary Care Provider [phone] MD Sera Flower Primary Care Provider DO Jasper Martinez Emergency Provider Sera Flower MD Unavailable Sera Flower MD Primary Care Provider Indira CAMACHO, Tootie Unavailable Rene Cortez MD Unavailable Indira RN, Tootie Unavailable Sera Flower Primary Care Physician Unavailab moisés Carreon RN, Orquidea Unavailable [facility] DOUG, Orquidea Unavailable Unavailable Rene Cortez MD Unavailable [phone] Eddie SHELLEY, Evens P Unavailable [phone] Emile SHELLEY, John P Unavailable Gregory BANKING ANALYST, Gurjit A Unavailable RISALITI, SALLY R Attending Unavailable SERA FLOWER Referring Unavailable PETITTI, MARYBETH A Attending Unavailable RISALITI, SALLY R Referring Unavailable DIDION, BENJY L Attending Unavailable RISALITI, SALLY R Attending Unavailable SERA FLOWER Referring Unavailable CHING, SERA Jimenez Attending Unavailable CHING, SERA Barbara Referring Unavailable RISALITI, SALLY R Attending Unavailable GURJIT BUSBY Attending Unavailable Sera Flower MD Primary Care Provider Ricardo Aguero DO Admit Provider [phone] Sekou CAMACHO, Orquidea Other Provider Unavailable Keila Davis DO Other Provider Rene Cortez MD Other Provider Tank Daley MD Other Provider Charito Rodriguez MD Other Provider Kannan Mendez MD Other Provider Kiya Richmond APRN Other Provider Katia Mckeon MD Other Provider Sha SHELLEY, Katie Finley Other Provider Mirian Huffman MD Other Provider Javan [facility], Joanne Jimenez Other Provider Vincenzo Caraballo DO Attending Provider Rk Pate MD Primary Care Provider [phone] Kiya Richmond APRN Attending Provider Rk Pate MD Primary Care Provider RENE CORTEZ Attending Unavailable RENE CORTEZ Referring Unavailable SERA FLOWER Primary Care Unavailable KIYA RICHMOND Attending Unavailable RK PATE Primary Care Unavailable ELTAHAWY, EHAB Attending Unavailable NUBIA COOK Attending Unavailab NUBIA Keith Attending Unavailab SERA Dexter Referring Unavailable NUBIA COOK Admitting Unavailab moisés COOK, NUBIA Esquivel Attending Unavailab moisés COOK, NUBIA Esquivel Attending Unavailab Kiya Bellamy Attending Unavailable Rk Pate Primary Care Unavailable Kiya Richmond Admitting Unavailable Basilio, Kiya Sandoval Attending Unavailable Rk Pate Primary Care Unavailable Kiya Richmond Admitting Unavailable Sera Flower Primary Care Unavailable Ricardo Aguero Admitting Unavailable Vincenzo Caraballo Attending Unavailable Orquidea Sapp Consulting Unavailable [place]quidea Sapp Consulting Unavailable Keila Davis Consulting Unavailable CortezRene Consulting Unavailable Tank Daley Consulting Unavail able Charito Rodriguez Consulting Unavailable Kannan Mendez Consulting Unavailab Kiya Bellamy Consulting Unavailable Katia Mckeon Consulting Unavailable Katie Dalton Consulting Unavailab moisés Huffman, Mirian Consulting Unavailable Joanne Edouard Consulting Unavailable SU COOK Attending Unavailable SU COOK Admitting Unavailable John BAPTISTE Attending Unavailable COOK, John Hauser Attending Unavailable OrzechYasemin Attending Unavailable COOK, John Hauser Attending Unavailable COOK, John Hauser Referring Unavailable COOK, John Hauser Attending Unavailable COOK, John P Attending Unavailable COOK, John P Attending Unavailable COOK, John P Admitting Unavailable COOKJohn P Referring Unavailable COOKJohn P Attending Unavailable Allergies Allergy Classification Reported Allergen(s) Allergy Type Date of Onset Reaction(s) Facility (20 sources) Codeine; Translations: [codeine] Drug Allergy 6 Vomiting, Unknown, Nausea And Vomiting, Other, Unknown (qualifier value) [facility] (7 sources) Codeine / guaiFENesin; Translations: [CODEINE-GUAIFEN ESIN] Drug Allergy 1 Other: See Comments [facility] (7 sources) guaiFENesin; Translations: [GUAIFENESIN] Drug Allergy 3 Other: See Comments [facility] (18 sources) guaiFENesin Drug Allergy 3 Other [facility] (1 source) Codeine Drug Allergy 4 [facility] Medications Current Medications Medication Drug Class(es) Dates Sig (Normalized) Sig (Original) acetaminophen 325 mg / HYDROcodone bitartrate 5 mg oral tablet (1 source) Opioid Agonist Start: 07-29-2024 take 1 tablet by mouth every hour [place] 325 mg-5 mg oral tablet See Instructions, 1 tab(s), Refill(s) 0, Take 1 hour prior to your procedure, [facility], 172, cm, 06/23/24 15:02:00 EST, Height/Length Dosing, 111.5, kg, 06/23/24 15:02:00 EST, Weight Dosing Start Date: 07/29/24 Status: Ordered acetaminophen 325 mg / traMADol hydrochloride 37.5 mg oral tablet (1 source) Opioid Agonist Start: 07-29-2024 Ultracet 325 mg-37.5 mg Tab See Instructions, 20 tab(s), Refill(s) 0, take 1-2 every 6 hrs prn for pain - following procedure, [facility], 172, cm, 06/23/24 15:02:00 EST, Height/Length Dosing, 111.5, kg, 06/23/24 15:02:00 EST, Weight Dosing Start Date: 07/29/24 Status: Ordered [id number] 200 actuat albuterol 0.09 mg/actuat metered dose inhaler (20 sources) beta2-Adrenergic Agonist Start: 10-17-2024 take 2 puff(s) by inhalation every six hours as needed for wheezing Start: 04-16-2024 albuterol Star t Date: 04/16/24 Status: Ordered Repeat number: 1 Start: 04-16-2024 albuterol Star t Date: 04/16/24 Status: Ordered Start: 07-11-2023 albuterol [...] 75 mL 3 06/21/2023 Active Start: 06-14-2023 End: 10-17-2024 take 2.5 mg by inhalation every four to six hours as needed for wheezing Albuterol Sulfate 2.5 mg/0.5 mL solution for nebulization Discontinued 2.5 MG INHALATION EVERY 4-6 HOURS as needed for shortness of breath or wheezing June 14, 2023 1:00am October 17, 2024 2:00am Start: 11-07-2021 take 2 puff(s) by in halation every six hours for wheezing albuterol HFA 90 mcg/act inhaler Indications: Chronic obstructive pulmonary disease, unspecified COPD type (CMS/HCC) Inhale 2 puffs every 6 (six) hours if needed for wheezing or shortness of breath 18 g 3 07/09/2023 Active Start: 04-26-2018 End: 07-28-2019 take 2.5 mg by inhalation every four hours as needed for wheezing Albuterol Sulfate 2.5 mg /3 mL (0.083 %) solution for nebulization Discontinued 2.5 MG INHALATION Q4H as needed for shortness of breath or wheezing April 26, 2018 1:00am July 28, 2019 7:51am Start: 09-19-2017 End: 10-17-2024 take 2.5 mg by inhalation every six hours as needed for wheezing Albuterol Sulfate 2.5 mg /3 mL (0.083 %) solution for nebulization Discontinued 2.5 MG INHALATION Q6H as needed for shortness of breath or wheezing September 19, 2017 12:00am October 17, 2024 2:00am albuterol 0.833 mg/ml / ipratropium bromide 0.167 mg/ml inhalation solution (3 sources) Anticholinergic, beta2-Adrenergic Agonist Start: 10-17-2024 take 3 mL by inhalation every six hours as needed for wheezing amoxicillin 875 mg / clavulanate 125 mg oral tablet (2 sources) Penicillin-class Antibacterial Start: 05-07-2024 End: 05-14-2024 take 1 tablet by mouth in the morning amoxicillin-cl avulanate (Augmentin) 875-125 MG tablet Indications: Non-recurrent acute [...] in the morning. Active aspirin 81 mg delayed release oral tablet (20 sources) Platelet Aggregation Inhibitor, Nonsteroidal Anti-inflammatory Drug Start: 07-28-2019 take 81 mg by mouth once daily Aspirin Active 81 MG PO Daily July 28, 2019 12:00am Start: 07-28-2019 End: 10-17-2024 take 1 tablet by mouth once daily Aspirin 81 mg Tablet,Chewable Discontinued 81 MG PO Daily July 28, 2019 1:00am October 17, 2024 2:00am Start: 06-07-2016 End: 10-24-2025 take 1 tablet by mouth once daily aspirin 81 mg EC tablet Indications: Ischemic cardiomyopathy Take 1 tablet (81 mg) by mouth once daily. 30 tablet 11 10/24/2024 10/24/2025 Active Comment on above: 81 mg. atorvastatin 40 mg oral tablet (20 sources) HMG-CoA Reductase Inhibitor Start: 1 End: 4 take 1 tablet by mouth once daily atorvastatin (Lipitor) 40 mg tablet Take 1 tablet (40 mg) by mouth once daily. 10/11/2020 10/18/2023 Discontinued (Therapy completed) Start: 04-26-2018 End: 07-28-2019 Atorvastatin (Lipitor) 80 mg tablet Discontinued April 26, 2018 1:00am July 28, 2019 7:51am Start: 04-26-2018 End: 07-28-2019 Atorvastatin (Lipitor) 80 mg tablet Discontinued TABLET April 26, 2018 1:00am July 28, 2019 7:51am benoxinate hydrochloride 4 mg/ml / fluorescein sodium 2.5 mg/ml ophthalmic solution (1 source) Diagnostic Dye Start: 05-01-2022 End: 05-01-2022 fluorescein-benoxinate 0.25-0.4 % 1 Drop (FLURESS) benzonatate 100 mg oral capsule (18 sources) Non-narcotic Antitussive Start: 02-21-2024 End: 07-02-2024 take 1 capsule by mouth three times daily as needed for cough benzonatate (Tessalon) 100 MG capsule Indications: Acute cough Take 1 capsule (100 mg) by mouth 3 (three) times a day as needed for cough Do not crush or chew. 30 capsule 1 02/21/2024 07/02/2024 Discontinued Start: 06-14-2023 take 1 capsule by mo uth three times daily as needed for cough Start: 01-17-2022 take 1 capsule by mo [...] inhaler (7 sources) Corticosteroid, beta2-Adrenergic Agonist Start: End: take 2 puff(s) by mouth twice daily Breztri Aerosphere 160-9-4.8 MCG/ACT aerosol INHALE 2 PUFFS BY MOUTH 2 TIMES A DAY, RINSE MOUTH AFTER USE 05/07/2024 07/02/2024 Discontinued (Therapy completed) Start: 09-05-2023 End: 02-27-2024 Breztri Aerosphere 160-9-4.8 MCG/ACT aerosol 09/05/2023 02/27/2024 Discontinued carvedilol 6.25 mg oral tablet (20 sources) alpha-Adrenergic Paras, beta-Adrenergic Paras Start: 10-24-2024 End: 10-24-2025 take 0.5 tablet by mouth twice daily carvedilol (Coreg) 6.25 mg tablet Indications: Ischemic cardiomyopathy Take 0.5 tablets (3.125 mg) by mouth 2 times daily (morning and late afternoon). 90 tablet 3 10/24/2024 10/24/2025 Active Start: 06-27-2023 End: 12-05-2024 take 1 tablet by mouth twice daily carvedilol 6.25 mg Tab 6.25 mg = 1 tab(s), Oral, BID Start Date: 04/16/24 Status: Ordered Repeat number: 1 Start: 04-25-2021 carvedilol (CO REG) 6.25 mg tablet Start: 06-28-2020 End: 05-15-2024 take 0.5 tablet by mouth twice daily carvedilol (Coreg) 12.5 mg tablet Take 0.5 tablets (6.25 mg) by mouth 2 times a day. 06/28/2020 05/15/2024 Discontinued (Therapy completed) Start: 04-26-2018 take 1 tablet by swetha th twice daily cetirizine hydrochloride 10 mg oral tablet (4 sources) Histamine-1 Receptor Antagonist Start: 10-17-2024 take 1 tablet by mouth once daily cetirizine (ZyrT EC) 10 mg chewable tablet Chew 1 tablet (10 mg) once daily. Active ciprofloxacin 500 mg oral tablet (8 sources) Quinolone Antimicrobial Start: 04-28-2024 ciprofloxacin 500 mg Tab See Instructions, Start 3 days prior to procedure - twice a day for 7 days, # 14 tab(s), Refills(s) 0, Pharmacy: [id number], 172, cm, 06/23/24 15:02:00 EST, Height/Length Dosing, 111.5, kg, 06/23/24 15:02:00 EST, Weight Dosing Start Date: 07/29/24 Status: Ordered Start: 04-16-2024 End: 04-30-2024 take 1 tablet by mouth every twelve hours Cipro 500 mg Tab 500 mg = 1 tab(s), Oral, q12hr, X 14 day(s), # 28 tab(s), Refills(s) 0, Pharmacy: [id number], 172, cm, 04/16/24 9:51:00 EST, Height/Length Dosing, 108.1, kg, 04/16/24 9:51:00 EST, Weight Dosing Start Date: 04/16/24 Stop Date: 04/30/24 Status: Ordered dapagliflozin 10 mg oral tablet (4 sources) Sodium-Glucose Cotransporter 2 Inhibitor Start: 10-18-2024 take 1 tablet by mouth once daily End: 10-24-2024 take 1 tablet by mouth every twenty-four hours dapagliflozin propanediol (Farxiga) 10 mg tablet Take 1 tablet (10 mg) by mouth once every 24 hours. 10/24/2024 Discontinued (Reorder) diazePAM 10 mg oral tablet (1 source) Benzodiazepine Start: 07-29-2024 Valium 10 mg Tab See Instructions, Take 1 hr prior to procedure, # 1 tab(s), Refills(s) 0, Pharmacy: [facility], 172, cm, 06/23/24 15:02:00 EST, Height/Length Dosing, 111.5, kg, 06/23/24 15:02:00 EST, Weight Dosing Start Date: 07/29/24 Status: Ordered empagliflozin 10 mg oral tablet (1 source) Sodium-Glucose Cotransporter 2 Inhibitor Start: 10-24-2024 End: 11-23-2024 take 1 tablet by mouth once daily empagliflozin (Jardiance) 10 mg tablet Indications: Ischemic cardiomyopathy Take 1 tablet (10 mg) by mouth once daily. 30 tablet 11 10/24/2024 11/23/2024 Active Fish Oils (20 sources) take 1 capsule by mouth once daily omega-3 (fish oil) 1200 MG capsule Take 1 capsule by mouth 1 (one) time each day. Active take 1 capsule by mouth once aniceto ly omega-3 (fish oil) 1200 MG capsule Take 1 capsule by mouth 1 (one) time each day. 0 Active Fish Oil 1200 MG Oral Capsule TAKE DIRECTED. Quantity: 0 Refills: 0 Ordered: 07-Sep-2022 DO Active fluconazole 100 mg oral tablet (1 source) Azole Antifungal take 1 tablet by mouth once daily fluconazole (Diflucan) 100 mg tablet Take 1 tablet (100 mg) by mouth once daily. Active fluticasone propionate 0.05 mg/actuat metered dose nasal spray (19 sources) Corticosteroid Start: 10-17-2024 Start: 07-25-2023 take 2 spray(s) nasa l route once daily fluticasone (Flonase) 50 MCG/ACT nasal spray Administer 2 sprays into each nostril Daily 07/25/2023 Active Fluticasone Propion-Salmeterol (8 sources) Corticosteroid, beta2-Adrenergic Agonist Start: 10-17-2024 take 1 puff(s) by inhalation twice daily Start: 10-17-2024 take 1 puff(s) by in halation twice daily Fluticasone Propion-Salmeterol (Advair Hfa) 115-21 mcg/actuation HFA aerosol inhaler Active 2 PUFF INHALATION Twice daily October 17, 2024 12:00am Start: 01-02-2022 fluticasone-sa lmeterol HFA (ADVAIR) 115-21 mcg/actuation inhaler Start: 01-02-2022 fluticasone-sa lmeterol HFA (ADVAIR) 115-21 mcg/actuation inhaler take 2 puff(s) by mo uth twice daily fluticasone propion-salmeteroL (Advair HFA) 230-21 mcg/actuation inhaler Inhale 2 puffs 2 times a day. Rinse mouth with water after use to reduce aftertaste and incidence of candidiasis. Do not swallow. Active take 2 puff(s) by in halation in the morning Advair HFA 115-21 MCG/ACT inhaler Inhale 2 puffs in the morning and 2 puffs before bedtime. 0 Active 30 actuat fluticasone furoate 0.1 mg/actuat / umeclidinium 0.0625 mg/actuat / vilanterol 0.025 mg/actuat dry powder inhaler (16 sources) Anticholinergic, Corticosteroid, beta2-Adrenergic Agonist Start: 08-04-2024 take 1 puff(s) by inhalation once daily Vxeohdexmwv-Bnywlxtbn-Cvjaic (Trelegy Ellipta) 100-62.5-25 MCG/ACT aerosol powder Indications: Chronic obstructive pulmonary disease, unspecified COPD type ([facility]/HCC) Inhale 1 puff Daily 1 each 11 08/04/2024 Active Start: 07-25-2023 take 1 puff(s) by inhalation once daily Pczrsrbosyr-Hgslpyhma-Uctzaf (Trelegy Ellipta) 100-62.5-25 MCG/ACT aerosol powder Inhale 1 puff 1 (one) time each day 07/25/2023 Active furosemide 40 mg oral tablet (18 sources) Loop Diuretic Start: 10-17-2024 take 1 tablet by swetha th once daily Start: 01-23-2024 End: 07-02-2024 take 1 tablet by mouth once daily furosemide (Lasix) 40 MG tablet Indications: Essential hypertension (CMS/HCC) Take 1 tablet (40 mg) by mouth Daily 90 tablet 2 01/23/2024 07/02/2024 Discontinued (Therapy completed) hydrocortisone 25 mg/ml topical cream (4 sources) Corticosteroid Start: 07-17-2024 hydrocortisone 2.5 % cream Indications: Erythema intertrigo Apply thin layer to affected areas on groin up once or twice daily prn itching. Hold if not itchy. 28 g 07/17/2024 Active iv contrast (will be provided with radiology test) (4 sources) Start: 06-21-2022 End: 06-22-2022 inject 1 dose intravenously once iv contrast [...] sources) Angiotensin 2 Receptor Paras Start: 3 End: 5 take 1 tablet by mouth once daily losartan 50 mg Tab 50 mg = 1 tab(s), Oral, Daily Start Date: 04/16/24 Status: Ordered Repeat number: 1 Start: 08-15-2021 End: 10-18-2023 take 1 tablet by mouth twice daily losartan (Cozaar) 25 mg tablet Take 1 tablet (25 mg) by mouth 2 times a day. 09/05/2021 10/18/2023 Discontinued (Dose adjustment) Start: 04-26-2018 End: 10-17-2024 take 1 tablet by mouth once daily Losartan 25 mg tablet Discontinued 25 MG PO Daily April 26, 2018 1:00am October 17, 2024 2:00am magnesium oxide 250 mg oral tablet (20 sources) take 1 tablet by mouth once daily magnesium oxide (Mag-Ox) 250 mg magnesium tablet Take 1 tablet (250 mg) by mouth once daily. Active montelukast 10 mg oral tablet (5 sources) Leukotriene Receptor Antagonist Start: 5 montelukast 10 mg Tab Refills(s) 0 Start Date: 12/02/24 Status: Ordered Repeat number: 1 Start: 10-17-2024 take 1 tablet by mouth once da [place] Multivitamin preparation (6 sources) Start: 07-28-2019 take 1 tablet by [...] SL tablet Indications: Coronary artery disease involving algaaciq coronary artery of algaaciq heart without angina pectoris Place 1 tablet (0.4 mg) under the tongue every 5 minutes if needed for chest pain. May repeat dose every 5 minutes for up to 3 doses total. 25 tablet 11 05/15/2024 Active Comment on above: Dissolve under the t ongue. omega-3 fatty acids-fish oil (One-Per-Day Monitor-3) 684-1,200 mg capsule (4 sources) omega-3 fatty acids-fish oil (One-Per-Day Monitor-3) 684-1,200 mg capsule Take as directed Active omega-3 fatty ac ids-fish oil (One-Per-Day Monitor-3) 684-1,200 mg capsule Take as directed 0 Active omeprazole 20 mg delayed release oral capsule (20 sources) Proton Pump Inhibitor Start: 04-16-2024 take 1 capsule by mouth once daily omeprazole 20 mg Cap-DR 20 mg = 1 cap(s), Oral, Daily Start Date: 04/16/24 Status: Ordered Repeat number: 1 Start: 04-26-2018 End: 03-22-2024 take 1 capsule by mouth once daily Start: 04-26-2018 take 20 mg by mouth once daily Omeprazole Active 20 MG PO Daily April 26, 2018 12:00am oxybutynin chloride 5 mg oral tablet (1 source) Cholinergic Muscarinic Antagonist Start: 07-29-2024 take 1 tablet by mouth twice daily oxybutynin 5 mg Tab See Instructions, 1 tab(s) Oral bid after procedure, # 10 tab(s), Refills(s) 0, Pharmacy: [id number], 172, cm, 06/23/24 15:02:00 EST, Height/Length Dosing, 111.5, kg, 06/23/24 15:02:00 EST, Weight Dosing Start Date: 07/29/24 Status: Ordered phenylephrine hydrochloride 25 mg/ml ophthalmic solution (1 source) alpha-1 Adrenergic Agonist Start: 05-01-2022 End: 05-01-2022 PHENYLephrine 2.5 % 1 Drop (AK-DILATE, ATIF-SYNEPHRINE) rosuvastatin 40 mg oral capsule (20 sources) HMG-CoA Reductase Inhibitor Start: 04-16-2024 take 40 mg by mouth once daily rosuvastatin 40 mg, Oral, Daily Start Date: 04/16/24 Status: Ordered Repeat number: 1 Start: 10-18-2023 End: 10-24-2024 take 1 tablet by mouth once daily rosuvastatin (Crestor) 40 mg tablet Indications: Coronary artery disease involving algaaciq coronary artery of algaaciq heart without angina pectoris , Mixed hyperlipidemia Take 1 tablet (40 mg) by mouth once daily. 90 tablet 3 10/18/2023 10/24/2024 Discontinued (Med List Cleanup) Start: 07-28-2019 End: 10-17-2024 take 1 tablet by mouth once daily Rosuvastatin 20 mg tablet Discontinued 20 MG PO Daily July 28, 2019 1:00am October 17, 2024 2:00am sacubitril 24 mg / valsartan 26 mg oral tablet (4 sources) Angiotensin 2 Receptor Paras Start: 10-18-2024 take 1 tablet by mouth twice daily spironolactone 25 mg oral tablet (6 sources) Aldosterone Antagonist Start: 12-02-2024 spironolactone 25 mg Tab 25 mg = 1 tab(s), Oral Start Date: 12/02/24 Status: Ordered Repeat number: 1 Start: 10-24-2024 End: 10-24-2025 take 0.5 tablet by mouth once daily spironolactone (Aldactone) 25 mg tablet Indications: Ischemic cardiomyopathy Take 0.5 tablets (12.5 mg) by mouth once daily. 15 tablet 11 10/24/2024 10/24/2025 Active Start: 10-18-2024 End: 10-24-2024 take 1 tablet by mouth once daily spironolactone (Aldactone) 25 mg tablet Take 1 tablet (25 mg) by mouth once daily. 10/24/2024 Discontinued (Dose adjustment) tamsulosin hydrochloride 0.4 mg oral capsule (20 sources) alpha-Adrenergic Paras Start: 03-24-2024 take 1 capsule by mouth [...] by mouth once daily. 06/28/2020 Active Start: 04-26-2018 End: 04-11-2025 take 2 capsules by mouth once daily tamsulosin 0.4 mg Cap 0.8 mg = 2 cap(s), Oral, Daily, X 30 day(s), # 60 cap(s), Refills(s) 11, Pharmacy: [facility], 172, cm, 04/16/24 9:51:00 EST, Height/Length Dosing, 108.1, kg, 04/16/24 9:51:00 EST, Weight Dosing Start Date: 04/16/24 Stop Date: 04/11/25 Status: Ordered Quantity: 60.0 Unit: cap(s) Repeat number: 12 Start: 04-26-2018 take 0.4 mg by mouth [...] 05-01-2022 tropicamide 1 % 1 Drop (MYDRIACYL) valsartan 40 mg oral tablet (1 source) Angiotensin 2 Receptor Paras Start: 12-02-2024 valsartan 40 mg Tab Refills(s) 0 Start Date: 12/02/24 Status: Ordered Repeat number: 1 zinc gluconate 30 mg oral tablet (20 [...] days 2-5. 6 tablet 0 06/30/2023 Active Budesonide-Formoterol (5 sources) Corticosteroid, beta2-Adrenergic Agonist Start: 07-28-2019 End: 10-17-2024 take 1 puff(s) by inhalation every twelve hours Budesonide-Formoterol 160-4.5 mcg/actuation Hfa Aerosol Inhaler Discontinued 2 PUFF INHALATION Q12H July 28, 2019 1:00am October 17, 2024 2:00am Start: 07-28-2019 take 1 puff(s) by in halation every twelve hours Budesonide-Formoterol Active 2 PUFF INHALATION Q12H July 28, 2019 12:00am cholecalciferol 0.025 mg oral tablet (20 sources) Vitamin D Start: 07-28-2019 End: 10-17-2024 take 1 tablet by mouth once daily Cholecalciferol (Vitamin D3) (Vitamin D3) 25 mcg (1,000 unit) Tablet Discontinued 1000 UNIT PO Daily July 28, 2019 1:00am October 17, 2024 2:00am take 1 tablet by mouth once gretchen y cholecalciferol (Vitamin D-3) 50 MCG (2000 UT) tablet Take 1 tablet (50 mcg) by mouth once daily. Active doxycycline hyclate 100 mg oral tablet (9 sources) Tetracycline-class Drug Start: 06-14-2023 End: 10-17-2024 take 1 tablet by mouth twice daily Doxycycline Hyclate 100 mg tablet Discontinued 100 MG PO Twice daily 10 June 14, 2023 1:00am October 17, 2024 2:00am Start: 01-17-2022 doxycycline hy clate (VIBRAMYCIN) 100 mg capsule ezetimibe 10 mg oral tablet (20 sources) Dietary Cholesterol Absorption Inhibitor Start: 08-18-2019 End: 10-24-2024 take 1 tablet by mouth once daily ezetimibe (ZETIA) 10 mg tablet Take 1 tablet by mouth once daily. 0 08/18/2019 Active Comment on above: Take 1 tablet by swetha th once daily. hydroCHLOROthiazide 25 mg oral tablet (16 sources) Thiazide Diuretic Start: 10-11-2020 hydroCHLOROthiazide (HYDRODIURIL, ESIDRIX) 25 mg tablet Take by mouth q 24 HR. 0 10/11/2020 Active Start: 04-26-2018 End: 10-24-2024 take 1 tablet by mouth once daily Hydrochlorothiazide 25 mg tablet Discontinued 25 MG PO Daily April 26, 2018 1:00am October 17, 2024 2:00am Comment on above: Take by mouth q 24 H R. ipratropium bromide 0.2 mg/ml inhalation solution (5 sources) Anticholinergic Start: 018 End: take 0.5 mg by inhalation every eight hours Ipratropium [place] 0.02 % solution Discontinued 0.5 MG INHALATION Q8H 75 April 26, 2018 1:00am July 28, 2019 7:55am Start: 04-26-2018 End: 07-28-2019 take 0.5 mg by inhalation every eight hours Ipratropium [place] Discontinued 0.5 MG INHALATION Q8H April 26, 2018 12:00am July 28, 2019 6:55am levoFLOXacin 750 mg oral tablet (6 sources) Quinolone Antimicrobial Start: 04-26-2018 End: 05-06-2018 take 1 tablet by mouth every twenty-four hours Levofloxacin (Levaquin) 750 mg tablet Discontinued 750 MG PO Q24H 10 April 26, 2018 1:00am May 05, 2018 1:00am May 06, 2018 1:02am take 1 tablet by mouth once gretchen y levoFLOXacin (Levaquin) 750 mg tablet Take 1 tablet (750 mg) by mouth once daily. Active Magnesium (6 sources) take 1 tablet by mouth once daily Magnesium 250 MG Oral Tablet TAKE 1 TABLET DAILY. Quantity: 0 Refills: 0 Ordered: 07-Sep-2022 DO Active Multivitamin Tablet (3 sources) Start: 0 End: 5 take 1 tablet by mouth once daily Multivitamin Tablet Discontinued 1 TAB PO Daily July 28, 2019 1:00am October 17, 2024 2:00am nystatin 100 unt/mg topical powder (5 sources) Polyene Antifungal Start: 5 End: 5 nystatin (Mycostatin) 168610 UNIT/GM powder Indications: Erythema intertrigo Apply to the affected area on groin area, once daily, 30 day supply 60 g 07/17/2024 09/24/2024 Discontinued (Med list cleanup) nystatin (Mycost atin) 100,000 unit/mL suspension 5 mL (500,000 Units) 4 times a day. Active Monitor 3 CAPS (2 sources) Monitor 3 CAPS MARLEN E DIRECTED. Quantity: 0 Refills: 0 Ordered: 05-Sep-2021 DO Active predniSONE 10 mg oral tablet (20 sources) Start: 10-17-2024 End: 10-17-2024 Prednisone 10 mg tablet Discontinued MG October 17, 2024 12:00am October 17, 2024 2:01am Start: 06-29-2024 End: 07-05-2024 take 1 tablet [...] 24 tablet 0 06/30/2023 Active Start: 06-14-2023 End: 10-17-2024 take 2 tablets by mouth once daily Prednisone 20 mg tablet Discontinued 40 MG PO Daily 03 01June 14, 2023 1:00am October 17, 2024 2:00am Start: 06-14-2023 take 40 mg by mouth once daily Prednisone Active 40 MG PO Daily 10 June 14, 2023 12:00am Start: 04-26-2018 End: 05-01-2018 take 2 tablets by mouth once daily Prednisone 20 mg tablet Discontinued 40 MG PO Daily 10 April 26, 2018 1:00am April 30, 2018 1:00am May 01, 2018 1:01am Start: 04-26-2018 End: 05-01-2018 take 40 mg by mouth once daily Prednisone Discontinued 40 MG PO Daily 03 01April 26, 2018 12:00am May 01, 2018 12:01am Start: 09-19-2017 End: 07-28-2019 take 3 tablets by mouth once daily at mealtime Prednisone 20 mg tablet Discontinued 60 MG PO Daily 15 September 19, 2017 12:00am July 28, 2019 7:55am administer with food or milk Start: 09-19-2017 End: 07-28-2019 take 60 mg by mouth once daily at mealtime Prednisone Discontinued 60 MG PO Daily 15 September 18, 2017 11:00pm July 28, 2019 6:55am administer with food or milk sildenafil 100 mg oral tablet (20 sources) Phosphodiesterase 5 Inhibitor Start: 07-28-2019 End: 10-17-2024 take 1 tablet by mouth once daily as needed Sildenafil 100 mg Tablet Discontinued 100 MG PO Daily as needed for Erectile Dysfunction July 28, 2019 1:00am October 17, 2024 2:00am valACYclovir 1000 mg oral tablet (5 sources) [...] THREE TIMES A DAY FOR 7 DAYS vitamin b12 1 mg oral capsule (5 sources) Vitamin B12 Start: 07-28-2019 End: 10-17-2024 take 1 capsule by mouth once daily Cyanocobalamin (Vitamin B-12) 1,000 mcg Capsule Discontinued 1000 MCG PO Daily July 28, 2019 1:00am October 17, 2024 2:00am vitamin e 180 mg oral capsule (20 sources) Start: 09-04-2016 End: 10-24-2024 take 1 capsule by mouth once daily Vitamin E 400 unit Capsule Discontinued 400 UNIT PO Daily July 28, 2019 1:00am October 17, 2024 2:00am take 1 capsule by mouth in the m orning alpha tocopherol (Vitamin E) 400 units capsule Take 400 Units by mouth in the morning. Active take 1 tablet by mouth once gretchen y Vitamin E 400 UNIT Oral Tablet TAKE 1 TABLET DAILY. Quantity: 0 Refills: 0 Ordered: 07-Sep-2022 DO Active Comment on above: Take 1 tablet by swetha th once daily. Problems Active Problems Problem Classification Problem Date [...] [Coronary atherosclerosis of unspecified type of vessel, algaaciq or graft] Onset: 01-03-2023 03-23-2023 Chronic Coronary atherosclerosis and other heart disease (5 sources) Presence of coronary angioplasty implant and graft; Translations: [Percutaneous transluminal coronary angioplasty status] Onset: 02-13-2023 10-18-2024 Episodic Diabetes mellitus without complication (20 sources) Prediabetes; [...] 02-22-2024 Episodic Genitourinary symptoms and ill-defined conditions (8 sources) Retention of urine; Translations: [Retention of urine, unspecified] Onset: 04-16-2024 Episodic Hyperplasia of prostate (20 sources) Benign prostatic hypertrophy without outflow obstruction; Translations: [Benign prostatic hyperplasia without lower urinary tract symptoms] Onset: 03-14-2023 03-14-2023 Chronic Inflammatory conditions of male genital organs (6 sources) Chronic prostatitis; Translations: [Chronic prostatitis] Onset: 04-16-2024 Chronic Malaise and fatigue (5 sources) Asthenia; Translations: [Weakness] 10-15-2020 Episodic Other [...] Intertrigo; Translations: [Erythema intertrigo] 07-17-2024 Episodic Other nervous system disorders (1 source) Segmental autonomic dysfunction; 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 Other nervous system disorders (1 source) Myokymia of eyelid; Translations: [Facial myokymia] Episodic Other nervous system disorders (3 sources) 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; Translations: [Clonic hemifacial spasm, right] Episodic Other nutritional; endocrine; and metabolic disorders (14 sources) Obesity; Translations: [Obesity, unspecified] Onset: 02-13-2023 03-23-2023 Chronic Other nutritional; endocrine; and metabolic disorders (2 sources) Morbid obesity; Translations: [Morbid (severe) obesity due to excess calories] Onset: 03-14-2023 03-14-2023 Chronic Other nutritional; endocrine; and metabolic disorders (6 sources) Body mass index 30+ - obesity; Translations: [Body mass index (BMI) 36.0-36.9, adult] Onset: 05-15-2024 05-15-2024 Chronic Other nutritional; endocrine; and metabolic disorders (1 source) Obese class II; Translations: [Class 2 obesity] 05-15-2024 Chronic Other nutritional; endocrine; and metabolic disorders (2 sources) Obesity caused by energy imbalance; Translations: [Morbid (severe) obesity due to excess calories] 09-24-2024 Chronic Other nutritional; endocrine; and metabolic disorders (2 sources) Body mass index (BMI) 33.0-33.9, adult; Translations: [Body mass index (BMI) 33.0-33.9, adult] Onset: 10-24-2024 Chronic Other nutritional; endocrine; and metabolic disorders (2 sources) Body mass index (BMI) 36.0-36.9, adult; Translations: [Body mass index (BMI) 36.0-36.9, adult] Onset: 05-15-2024 Chronic Other screening for suspected conditions (not [...] caused by tuberculosis or sexually transmitted disease) (11 sources) Right middle zone pneumonia; Translations: [Pneumonia, unspecified organism] Onset: 10-16-2024 02-22-2024 Episodic Respiratory failure; insufficiency; arrest (adult) (7 sources) Acute respiratory failure; Translations: [Acute respiratory failure with hypoxia] Onset: 10-16-2024 10-16-2024 Episodic Septicemia (except in labor) (2 sources) Sepsis; Translations: [Sepsis, unspecified organism] 02-22-2024 Episodic Unclassified (3 sources) A [facility] screening has identified you as FRAIL or AT RISK FOR FRAILTY. This puts you at a higher risk for infection, illness, falls, and other injuries. Here are four ways to help you reduce your risk of frailty: 1. IDENTIFY EARLY SIGNS OF FRAILTY Discuss contributing factors and concerns with your doctor 2. BE ACTIVE Walking and light strengthening exercises will help reduce weakness 3. EAT WELL Aim for three healthy meals a day that are high in protein 4. THINK POSITIVE Keep your mind active by being sociable and continuing to learn References: Stay Strong: Four Ways to Beat the Frailty Risk https://www.[facility].org/health/welln hml-rwo-knfgjtcqcm/sta e-xvwycz-irqa-ways-to- safm-xnv-fdn ilty-risk 10-18-2024 Unclassified (2 sources) Follow-up with Cardiology Unclassified (1 source) Call office on Sunday to schedule follow-up with your Primary Care Provider within 3-5 days of discharge. Viral infection (20 sources) Disease caused by 2019-nCoV; Translations: [COVID-19] Onset: 03-14-2023 10-15-2020 Episodic Past or Other Problems Problem Classification Problem Date Documented Da te Episodic/Chronic Mood disorders (16 sources) Mood disorders Onset: [...] Comment on above: QUIT IN 1984; Unclassified (20 sources) Onset: 03-23-2023 Resolved: 10-24-2024 03-23-2023 Unclassified (2 sources) Sebaceous cyst of skin 07-02-2024 Results Test Name Value Interpretation Reference Range Facility Office Visiton 12-09-2024 Follow-up visit [id number] Seun Calderon 1955 M Date Provider Department Center 12/09/2024 [address] [facility] Family History Family Status - Relation Status Age at Mother Father Level of Service:69769 [place] OFFICE/OUTPATIENT NEW MODERATE MDM 45 MINUTES Normal [facility] Ambulatory Visit Summaryon 0 12-02-2024 Ambulatory Visit Summary Ambulatory Visit Summary DEMARCUS CALDERON :1955 Visit Date:12/02/2024 Ambulatory Visit Instructions Your Diagnosis BPH with obstruction/lower urinary tract symptoms Urinary retention Elevated PSA Your Care Team Attending Physician - EMILE SHELLEY, John Hauser Primary Care Physician - Ching DELACRUZ, Sera Calabrese This Is Your Medications List Contact prescribing [...] AM EST With: Where: [facility] [address] [place] [address]- Sunday2025 9:45 AM EST With: John BAPTISTE MD Where: [facility] [address] 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 ??? Difficulty starting urine flow. (more content not included)... Normal [facility] Urology Office/Clinic Noteon 12-02-2024 Urology Office/Clinic Note Urology Office/Clinic Note Chief Complaint 3 month [...] Medication management. Follow-up With When Contact Information EMILE SHELLEY, John Hauser, URL [address] [place], [place] [id number]- Additional Instructions: 6 mos w/ PSA and PVR Patient Education Benign Prostatic Hyperplasia I, Medina Farley, personally scribed for Dr. Baptiste on 12/02/2024 08:25:31. . Documentation recorded by the Medina bundy acurately reflects the services(s) I performed and decisions made by me. Authenticated by Dr. Baptiste on 12/02/2024 08:26:24. Portions of this record may have been created with voice recognition artificial intelligence software, specifically Lengow, Thoora and or rumr. Substitutions may have occurred due to the inherent limitations of voice recognition and artificial intelligence software. 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 Hypertension: Father. Im (more content not included)... Normal [facility] Comment on above: Result Comment: Elec tronically Signed By: John BAPTISTE MD\.br\Date and Time Signed: 12/02/24 08:27 EDT\.br\Electronically Co-Signed By: Medina Farley\.br\Date and Time Co-Signed: 12/02/24 08:25 EDT [facility] echo transthoracicon [facility] echo transthoracic [facility] [place] [address] [place] [address] Echocardiogram Signed Patient: Demarcus Calderon MR#: [id number] : 1955 Acct:[id number] Age/Sex: 69 / M ADM Date: 11/21/24 Loc: Room: Type: [facility] Attending Dr: Kiya Richmond APRN Ordering Provider: Kiya Richmond APRN Date of Service: 11/21/24/ [facility] echo transthoracic: ISCHEMIC CARDIOMYOPATHY Copies to: WILLIAN Garcia MD BSA: 2.1 m2 BP: 127/80 mmHg HR: 74 Reason For Study: ISCHEMIC CARDIOMYOPATHY History: HTN, HLD, Former Smoker, [place], Stents, Emphysema, COVID Interpretation Summary Ejection Fraction [...] mmHg Transcribed By: ARMANDO Performed At: 11/21/24 7776 Signed By: Alex Gaston MD 11/21/24 1535 Normal [facility] Basic Metabolic Panelon GFR/1.73 sq M.predicted MDRD (S/P/Bld) [Vol rate/Area] mL/min/{1.73_m2} Normal [facility] Comment on above: Performed By: #### B MP #### [address] Calcium [Mass/volume] in Ser um or PlasmaOrdered By: Kiya Richmond on 10-31-2024 Calcium [Mass/Vol] Calcium [Mass/volume ] in Serum or Plasma 8.6-10.3 [facility] Calcium [Mass/Vol] 8.6 mg/dL Normal 8.6-10.3 [facility] Comment on above: Result Comment: PERF ORMED BY: [facility] [address] [place] [address] PATHOLOGIST LICENSED VETERINARY TECHNICIAN ERASMO SADLER M.D. Performed By: #### B MP #### [facility] [address] Carbon dioxide, total [Moles /volume] in Serum or PlasmaOrdered By: Kiya Richmond on 10-31-2024 CO2 [Moles/Vol] Carbon dioxide, tota l [Moles/volume] in Serum or Plasma 21.0-31.0 [facility] CO2 [Moles/Vol] 25.4 mmol/L Normal 21.0-31.0 [facility] Comment on above: Performed By: #### B MP #### [facility] [address] [place] [address] Chloride [Moles/volume] in S taylor or PlasmaOrdered By: Kiya Richmond on 10-31-2024 Chloride [Moles/Vol] Chloride [Moles/vol ume] in Serum or Plasma 98-107 [facility] Chloride [Moles/Vol] 100 mmol/L Normal 98-107 [facility] Comment on above: Performed By: #### B MP #### [facility] [address] [place] [address] Creatinine [Mass/volume] in Serum or PlasmaOrdered By: Kiya Richmond on 10-31-2024 Creatinine [Mass/Vol] Creatinine [Mass/v olume] in Serum or Plasma 0.70-1.30 [facility] Creatinine [Mass/Vol] 0.97 mg/dL Normal 0.70-1.[address] [facility] Comment on above: Performed By: #### B MP #### [facility] [address] [place] [address] [place] Glucose [Mass/volume] in Ser um or PlasmaOrdered By: Kiya Richmond on 10-31-2024 Glucose [Mass/Vol] Glucose [Mass/volume ] in Serum or Plasma High 70-100 [facility] Comment on above: ADA recommended refe rence rangeRandom Glucose Reference Range is dependent on time and content of last meal. Glucose of more than 200 mg/dL in a nonstressed, ambulatory subject supports the diagnosis of Diabetes Mellitus. Glucose [Mass/Vol] 115 mg/dL High 70-100 [facility] Comment on above: ADA recommended refe rence rangeRandom Glucose Reference Range is dependent on time and content of last meal. Glucose of more than 200 mg/dL in a nonstressed, ambulatory subject supports the diagnosis of Diabetes Mellitus. Result Comment: Danese om Glucose Reference Range is dependent on time and content of last meal. Glucose of more than 200 mg/dL in a nonstressed, ambulatory subject supports the diagnosis of Diabetes Mellitus. ADA recommended reference range Performed By: #### B MP #### [facility] [address] [place] [address] No Panel InformationOrdered By: Kiya Richmond on 10-31-2024 Estimated GFR (CKD-EPI) > 60.0 mL/Min [facility] Creatinine Clearance (Chem N/A [facility] Potassium [Moles/volume] in Serum or PlasmaOrdered By: Kiya Richmond on 10-31-2024 Potassium [Moles/Vol] Potassium [Moles/v olume] in Serum or Plasma 3.5-5.1 [facility] Potassium [Moles/Vol] 4.0 mmol/L Normal 3.5-5.[address] [facility] Comment on above: Performed By: #### B MP #### [facility] [address] [place] [address] Serum or plasma anion gap de terminationOrdered By: Kiya Richmond on 10-31-2024 Anion gap [Moles/Vol] Serum or plasma an ion gap determination 6.0-15.0 [facility] Anion gap [Moles/Vol] 12.6 mmol/L Normal 6.0-15.0 [facility] Comment on above: Performed By: #### B MP #### [facility] [address] [place] [address] Sodium [Moles/volume] in Ser um or PlasmaOrdered By: Kiya Richmond on 10-31-2024 Sodium [Moles/Vol] Sodium [Moles/volume ] in Serum or Plasma Low 136-145 [facility] Sodium [Moles/Vol] 134 mmol/L Low 136-145 [facility] Comment on above: Performed By: #### B MP #### [facility] [address] Urea nitrogen [Mass/volume] in Serum or PlasmaOrdered By: Kiya Richmond on 10-31-2024 Urea nitrogen [Mass/Vol] Urea nitrogen [Mass/volume] in Serum or Plasma 12-19 [facility] Urea nitrogen [Mass/Vol] 16 mg/dL Normal 12-19 [facility] Comment on above: Performed By: #### B MP #### [facility] [address] Basic Metabolic Panelon 09-26 Creatinine Clr Calc Pharmacy 96.55 Normal [facility] Comment on above: Performed By: #### M BHAKTI Alcantar, BMP #### [facility] [address] GFR/1.73 sq M.predicted MDRD (S/P/Bld) [Vol rate/Area] mL/min/{1.73_m2} Normal [facility] Comment on above: Performed By: #### M BHAKTI Alcantar, BMP #### [facility] [address] Calcium [Mass/volume] in Ser um or PlasmaOrdered By: Vincenzo Caraballo on 10-18-2024 Calcium [Mass/Vol] Calcium [Mass/volume ] in Serum or Plasma Low 8.6-10.3 [facility] Calcium [Mass/Vol] 8.4 mg/dL Low 8.6-10.3 [facility] Comment on above: Performed By: #### M BHAKTI Alcantar, BMP #### [facility] [address] [place] [id number] [place] Carbon dioxide, total [Moles /volume] in Serum or PlasmaOrdered By: Vincenzo Caraballo on 10-18-2024 CO2 [Moles/Vol] Carbon dioxide, tota l [Moles/volume] in Serum or Plasma 21.0-31.0 [facility] CO2 [Moles/Vol] 22.4 mmol/L Normal 21.0-31.0 [facility] Comment on above: Performed By: #### M BHAKTI Alcantar, BMP #### [facility] [address] Chloride [Moles/volume] in S taylor or PlasmaOrdered By: Vincenzo Caraballo on 10-18-2024 Chloride [Moles/Vol] Chloride [Moles/vol ume] in Serum or Plasma 98-107 [facility] Chloride [Moles/Vol] 98 mmol/L Normal 98-107 [facility] Comment on above: Performed By: #### M BHAKTI Alcantar, BMP #### [facility] [address] Creatinine [Mass/volume] in Serum or PlasmaOrdered By: Vincenzo Caraballo on 10-18-2024 Creatinine [Mass/Vol] Creatinine [Mass/v olume] in Serum or Plasma 0.70-1.30 [facility] Creatinine [Mass/Vol] 0.76 mg/dL Normal 0.70-1.[address] [facility] Comment on above: Performed By: #### M BHAKTI Alcantar, BMP #### [facility] [address] Erythrocyte distribution wid th Auto (RBC) [Ratio]Ordered By: Vincenzo Caraballo on 10-18-2024 Erythrocyte distribution width (RBC) [Ratio] Erythrocyte distribution width [Ratio] by Automated count High 12.0-14.8 [facility] Erythrocyte distribution wid th [Ratio] by Automated countOrdered By: Vincenzo Caraballo on 10-18-2024 Erythrocyte distribution width (RBC) [Ratio] 15.8 % High 12.0-14.8 [facility] Comment on above: Performed By: #### M BHAKTI Alcantar, BMP #### [facility] [address] [place] [address] [place] Erythrocytes [#/volume] in B lood by Automated countOrdered By: Vincenzo Caraballo on 10-18-2024 RBC (Bld) [#/Vol] 5.20 10*6/uL Normal 3.90-5.60 [facility] Comment on above: Performed By: #### M BHAKTI Alcantar, BMP #### [facility] [address] Glucose [Mass/volume] in Ser um or PlasmaOrdered By: Vincenzo Caraballo on 10-18-2024 Glucose [Mass/Vol] Glucose [Mass/volume ] in Serum or Plasma High 70-100 [facility] Comment on above: ADA recommended refe rence rangeRandom Glucose Reference Range is dependent on time and content of last meal. Glucose of more than 200 mg/dL in a nonstressed, ambulatory subject supports the diagnosis of Diabetes Mellitus. Glucose [Mass/Vol] 124 mg/dL High 70-100 [facility] Comment on above: ADA recommended refe rence rangeRandom Glucose Reference Range is dependent on time and content of last meal. Glucose of more than 200 mg/dL in a nonstressed, ambulatory subject supports the diagnosis of Diabetes Mellitus. Result Comment: Danese om Glucose Reference Range is dependent on time and content of last meal. Glucose of more than 200 mg/dL in a nonstressed, ambulatory subject supports the diagnosis of Diabetes Mellitus. ADA recommended reference range Performed By: #### M BHAKTI Alcantar, BMP #### [facility] [address] Hematocrit Auto (Bld) [Volum e fraction]Ordered By: Vincenzo Caraballo on 10-18-2024 Hematocrit (Bld) [Volume fraction] Hematocrit [Volume Fraction] of Blood by Automated count 38.8-50.0 [facility] Hematocrit [Volume Fraction] of Blood by Automated countOrdered By: Vincenzo Caraballo on 10-18-2024 Hematocrit (Bld) [Volume fraction] 43.5 % Normal 38.8-50.0 [facility] Comment on above: Performed By: #### M BHAKTI Alcantar, BMP #### [facility] [address] Hemoglobin [Mass/volume] in BloodOrdered By: Vincenzo Caraballo on 10-18-2024 Hemoglobin (Bld) [Mass/Vol] Hemoglobin [Mass/volume] in Blood 13.0-17.0 [facility] Hemoglobin (Bld) [Mass/Vol] 14.9 g/dL Normal 13.0-17.0 [facility] Comment on above: Performed By: #### M BHAKTI Alcantar, GIOVANNA #### [facility] [address] [place] [address] Hemogram CBC Without Diffon 10-18-2024 Mean Corpuscular HGB Conc 34.2 g/dL Normal 32.5-35.6 [facility] Comment on above: Performed By: #### M BHAKTI Alcantar, GIOVANNA #### [address] WBC (Bld) [#/Vol] 11.5 10*3/uL High 4.1-10.5 [facility] Comment on above: Performed By: #### BHAKTI Yates BMP #### [address] Leukocytes [#/volume] correc zakiya for nucleated erythrocytes in Blood by Automated counOrdered By: Vincenzo Caraballo on 10-18-2024 WBC corrected for nucl RBC Auto (Bld) [#/Vol] Leukocytes [#/volume] corrected for nucleated erythrocytes in Blood by Automated coun High 4.1-10.5 [facility] WBC corrected for nucl RBC Auto (Bld) [#/Vol] 11.5 10*3/uL High 4.1-10.5 [facility] MCH Auto (RBC) [Entitic mass ]Ordered By: Vincenzo Caraballo on 10-18-2024 MCH (RBC) [Entitic mass] MCH [Entitic mass] by Automated count 27.5-35.2 [facility] MCH [Entitic mass] by Automa zakiya countOrdered By: Vincenzo Caraballo on 10-18-2024 MCH (RBC) [Entitic mass] 28.7 pg Normal 27.5-35.2 [facility] Comment on above: Performed By: #### BHAKTI Yates, GIOVANNA #### [address] MCHC Auto (RBC) [Mass/Vol]Or dered By: Vincenzo Caraballo on 10-18-2024 MCHC (RBC) [Mass/Vol] MCHC [Mass/volume] by Automated count 32.5-35.6 [facility] MCHC (RBC) [Mass/Vol] 34.2 g/dL 32.5-35.[address] [facility] [facility] MCV Auto (RBC) [Entitic vol] Ordered By: Vincenzo Caraballo on 10-18-2024 MCV (RBC) [Entitic vol] MCV [Entitic volume] by Automated count 83.5-101 [facility] MCV [Entitic volume] by Auto mated countOrdered By: Vincenzo Caraballo on 10-18-2024 MCV (RBC) [Entitic vol] 83.8 fL Normal 83.5-101 [facility] Comment on above: Performed By: #### BHAKTI Yates, BMP #### [facility] [address] Magnesium [Mass/volume] in S taylor or PlasmaOrdered By: Vincenzo Caraballo on 10-18-2024 Magnesium [Mass/Vol] Magnesium [Mass/vol ume] in Serum or Plasma 1.9-2.7 [facility] Magnesium [Mass/Vol] 2.3 mg/dL Normal 1.9-2.7 [facility] Comment on above: Result Comment: PERF ORMED BY: [place] [address] PATHOLOGIST LICENSED VETERINARY TECHNICIAN ERASMO SADLER M.D. Performed By: #### BHAKTI Yates, BMP #### [facility] [address] [place] [address] No Panel InformationOrdered By: Vincenzo Caraballo on 10-18-2024 Estimated GFR (CKD-EPI) > 60.0 mL/Min [facility] Creatinine Clearance (Chem 96.55 [facility] Platelet mean volume Auto (B ld) [Entitic vol]Ordered By: Vincenzo Caraballo on 10-18-2024 Platelet mean volume (Bld) [Entitic vol] Platelet mean volume [Entitic volume] in Blood by Automated count 6.6-10.1 [facility] Platelet mean volume [Entiti c volume] in Blood by Automated countOrdered By: Vincenzo Caraballo on 10-18-2024 Platelet mean volume (Bld) [Entitic vol] 8.0 fL Normal 6.6-10.1 [facility] Comment on above: Result Comment: PERF ORMED BY: [place] [address] PATHOLOGIST LICENSED VETERINARY TECHNICIAN ERASMO SADLER M.D. Performed By: #### Charlotte Alcantar, CBCNO, BMP #### [address] Platelets Auto (Bld) [#/Vol] Ordered By: Vincenzo Caraballo on 10-18-2024 Platelets (Bld) [#/Vol] Platelets [#/volume] in Blood by Automated count 150-450 [facility] Platelets [#/volume] in Bloo d by Automated countOrdered By: Vincenzo Caraballo on 10-18-2024 Platelets (Bld) [#/Vol] 194 10*3/uL Normal 150-450 [facility] Comment on above: Performed By: #### Charlotte Alcantar, CBCNO, BMP #### [address] Potassium [Moles/volume] in Serum or PlasmaOrdered By: Vincenzo Caraballo on 10-18-2024 Potassium [Moles/Vol] Potassium [Moles/v olume] in Serum or Plasma 3.5-5.1 [facility] Potassium [Moles/Vol] 4.0 mmol/L Normal 3.5-5.[address] [facility] Comment on above: Performed By: #### Charlotte Alcantar, CBCNO, BMP #### [address] RBC Auto (Bld) [#/Vol]Ordere d By: Vincenzo Caraballo on 10-18-2024 RBC (Bld) [#/Vol] Erythrocytes [#/volu me] in Blood by Automated count 3.90-5.60 [facility] Serum or plasma anion gap de terminationOrdered By: Vincenzo Caraballo on 10-18-2024 Anion gap [Moles/Vol] Serum or plasma an ion gap determination 6.0-15.0 [facility] Anion gap [Moles/Vol] 12.6 mmol/L Normal 6.0-15.0 [facility] Comment on above: Performed By: #### M BHAKTI Alcantar, BMP #### [facility] [address] Sodium [Moles/volume] in Ser um or PlasmaOrdered By: Vincenzo Caraballo on 10-18-2024 Sodium [Moles/Vol] Sodium [Moles/volume ] in Serum or Plasma Low 136-145 [facility] Sodium [Moles/Vol] 129 mmol/L Low 136-145 [facility] Comment on above: Performed By: #### M BHAKTI Alcantar, BMP #### [address] Urea nitrogen [Mass/volume] in Serum or PlasmaOrdered By: Vincenzo Caraballo on 10-18-2024 Urea nitrogen [Mass/Vol] Urea nitrogen [Mass/volume] in Serum or Plasma 12-19 [facility] Urea nitrogen [Mass/Vol] 20 mg/dL Normal 12-19 [facility] Comment on above: Performed By: #### M BHAKTI Alcantar, BMP #### [address] Basic Metabolic Panelon 09-26 Anion gap [Moles/Vol] 13.3 mmol/L Normal 6.0-15.0 [facility] Comment on above: Performed By: #### B MP, CBC, MG #### [address] Calcium [Mass/Vol] 8.8 mg/dL Normal 8.6-10.3 [facility] Comment on above: Performed By: #### B MP, CBC, MG #### [place] [address] [place] Chloride [Moles/Vol] 98 mmol/L Normal 98-107 [facility] Comment on above: Performed By: #### B MP, CBC, MG #### [place] [address] [place] CO2 [Moles/Vol] 27.2 mmol/L Normal 21.0-31.0 [facility] Comment on above: Performed By: #### B MP, CBC, MG #### [address] Creatinine [Mass/Vol] 0.89 mg/dL Normal 0.70-1.30 [facility] Comment on above: Performed By: #### B MP, CBC, MG #### [place] [address] [place] Creatinine Clr Calc Pharmacy 87.13 Normal [facility] Comment on above: Performed By: #### B MP, CBC, MG #### [place] [address] [place] GFR/1.73 sq M.predicted MDRD (S/P/Bld) [Vol rate/Area] mL/min/{1.73_m2} Normal [facility] Comment on above: Performed By: #### B MP, CBC, MG #### [address] Glucose [Mass/Vol] 131 mg/dL High 70-100 [facility] Comment on above: Result Comment: [facility] Glucose Reference Range is dependent on time and content of last meal. Glucose of more than 200 mg/dL in a nonstressed, ambulatory subject supports the diagnosis of Diabetes Mellitus. ADA recommended reference range Performed By: #### B MP, CBC, MG #### [address] Potassium [Moles/Vol] 4.5 mmol/L Normal 3.5-5.1 [facility] Comment on above: Result Comment: Hemo lysis is present at a level that could interfere with the result. Contact lab if redraw is required Performed By: #### B MP, CBC, MG #### [address] Sodium [Moles/Vol] 134 mmol/L Low 136-145 [facility] Comment on above: Performed By: #### B MP, CBC, MG #### [place] [address] [place] Urea nitrogen [Mass/Vol] 22 mg/dL Normal 7-25 [facility] Comment on above: Performed By: #### B MP, CBC, MG #### [facility] [address] Basophils Auto (Bld) [#/Vol] Ordered By: Tootie Richmond on 10-17-2024 Basophils (Bld) [#/Vol] Automated basophil count 0.0-0.2 [facility] Basophils [#/volume] in Bloo d by Automated countOrdered By: Tootie Richmond on 10-17-2024 Basophils (Bld) [#/Vol] 0.0 10*3/uL Normal 0.0-0.2 [facility] Comment on above: Result Comment: PERF ORMED BY: [address] [place] [address] PATHOLOGIST LICENSED VETERINARY TECHNICIAN FIORELLA BRIAN M.D. Performed By: #### B MP, CBC, MG #### [facility] [address] [place] [address] Basophils/100 WBC Auto (Bld) Ordered By: Tootie Richmond on 10-17-2024 Basophils/100 WBC (Bld) Automated basophil % . [facility] Basophils/100 leukocytes in Blood by Automated countOrdered By: Tootie Richmond on 10-17-2024 Basophils/100 WBC (Bld) 0.2 % Normal . [facility] Comment on above: Performed By: #### B MP, CBC, MG #### [facility] [address] [place] [address] Capillary blood glucose maged urement by glucometer (mass/volume)Ordered By: Vincenzo Caraballo on 10-17-2024 Glucose [Mass/Vol] 144 mg/dL Normal [facility] Comment on above: Random Glucose Refer ence Range is dependent on time and content of last meal. Glucose of more than 200 mg/dL in a nonstressed, ambulatory subject supports the diagnosis of Diabetes Mellitus. Result Comment: [facility] Glucose Reference Range is dependent on time and content of last meal. Glucose of more than 200 mg/dL in a nonstressed, ambulatory subject supports the diagnosis of Diabetes Mellitus. Performed By: #### G SHY #### Point of Care testing , Complete Blood Count Auto Di ffon 10-17-2024 Erythrocyte distribution width (RBC) [Ratio] 15.5 % High 12.0-14.8 [facility] Comment on above: Performed By: #### B MP, CBC, MG #### [address] Hematocrit (Bld) [Volume fraction] 44.7 % Normal 38.8-50.0 [facility] Comment on above: Performed By: #### B MP, CBC, MG #### [address] Hemoglobin (Bld) [Mass/Vol] 15.2 g/dL Normal 13.0-17.0 [facility] Comment on above: Performed By: #### B MP, CBC, MG #### [address] MCH (RBC) [Entitic mass] 28.5 pg Normal 27.5-35.2 [facility] Comment on above: Performed By: #### B MP, CBC, MG #### [address] MCV (RBC) [Entitic vol] 84.2 fL Normal 83.5-101 [facility] Comment on above: Performed By: #### B MP, CBC, MG #### [address] Mean Corpuscular HGB Conc 33.9 g/dL Normal 32.5-35.6 [facility] Comment on above: Performed By: #### B MP, CBC, MG #### [address] NRBC% 0.1 /100{WBC} Normal 0-0.5 [facility] Comment on above: Performed By: #### B MP, CBC, MG #### [address] Platelet mean volume (Bld) [Entitic vol] 8.1 fL Normal 6.6-10.1 [facility] Comment on above: Performed By: #### B MP, CBC, MG #### [facility] [address] Platelets (Bld) [#/Vol] 211 10*3/uL Normal 150-450 [facility] Comment on above: Performed By: #### B MP, CBC, MG #### [facility] [address] RBC (Bld) [#/Vol] 5.31 10*6/uL Normal 3.90-5.60 [facility] Comment on above: Performed By: #### B MP, CBC, MG #### [facility] [address] [place] [address] [place] Eosinophils Auto (Bld) [#/Vo l]Ordered By: Tootie Richmond on 10-17-2024 Eosinophils (Bld) [#/Vol] Automated eosinophil count 0.0-0.45 [facility] Eosinophils [#/volume] in Bl ood by Automated countOrdered By: Tootie Richmond on 10-17-2024 Eosinophils (Bld) [#/Vol] 0.3 10*3/uL Normal 0.0-0.45 [facility] Comment on above: Performed By: #### B MP, CBC, MG #### [address] Eosinophils/100 WBC Auto (Bl d)Ordered By: Tootie Richmond on 10-17-2024 Eosinophils/100 WBC (Bld) Automated eosinophil % . [facility] Eosinophils/100 leukocytes i n Blood by Automated countOrdered By: Tootie Richmond on 10-17-2024 Eosinophils/100 WBC (Bld) 1.8 % Normal . [facility] Comment on above: Performed By: #### B MP, CBC, MG #### [address] Glucose Glucometer (BldC) [M ass/Vol]Ordered By: Vincenzo Caraballo on 10-17-2024 Glucose [Mass/Vol] Capillary blood gluc ose measurement by glucometer (mass/volume) [facility] Comment on above: Random Glucose Refer ence Range is dependent on time and content of last meal. Glucose of more than 200 mg/dL in a nonstressed, ambulatory subject supports the diagnosis of Diabetes Mellitus. Glucose Poct Glucometerson 0 10-17-2024 Commemt1 Glu2: Cleaned Meter Normal [facility] Comment on above: Result Comment: PERF ORMED BY: [place] [address] PATHOLOGIST LICENSED VETERINARY TECHNICIAN FIORELLA BRIAN M.D. Performed By: #### G LULS #### Point of Care testing , Leukocytes [#/volume] in Blo od by Automated countOrdered By: Tootie Richmond on 10-17-2024 WBC (Bld) [#/Vol] 14.6 10*3/uL High 4.1-10.5 [facility] Comment on above: Performed By: #### B MP, CBC, MG #### [facility] [address] [place] [address] Lymphocytes Auto (Bld) [#/Vo l]Ordered By: Tootie Richmond on 10-17-2024 Lymphocytes (Bld) [#/Vol] Lymphocytes [#/volume] in Blood by Automated count 1.00-4.8 [facility] Lymphocytes [#/volume] in Bl ood by Automated countOrdered By: Tootie Richmond on 10-17-2024 Lymphocytes (Bld) [#/Vol] 2.4 10*3/uL Normal 1.00-4.8 [facility] Comment on above: Performed By: #### B MP, CBC, MG #### [facility] [address] [place] [address] [place] Lymphocytes/100 WBC Auto (Bl d)Ordered By: Tootie Richmond on 10-17-2024 Lymphocytes/100 WBC (Bld) Lymphocytes/100 leukocytes in Blood by Automated count . [facility] Lymphocytes/100 leukocytes i n Blood by Automated countOrdered By: Tootie Richmond on 10-17-2024 Lymphocytes/100 WBC (Bld) 16.3 % Normal . [facility] Comment on above: Performed By: #### B MP, CBC, MG #### [facility] [address] Magnesiumon 10-17-2024 Magnesium [Mass/Vol] 2.2 mg/dL Normal 1.9-2.7 [facility] Comment on above: Result Comment: PERF ORMED BY: [place] [address] PATHOLOGIST LICENSED VETERINARY TECHNICIAN FIORELLA BRIAN M.D. Performed By: #### B MP, CBC, MG #### [facility] [address] Monocytes Auto (Bld) [#/Vol] Ordered By: Tootie Richmond on 10-17-2024 Monocytes (Bld) [#/Vol] Automated blood monocyte count High 0.0-0.8 [facility] Monocytes [#/volume] in Bloo d by Automated countOrdered By: Tootie Richmond on 10-17-2024 Monocytes (Bld) [#/Vol] 1.1 10*3/uL High 0.0-0.8 [facility] Comment on above: Performed By: #### B MP, CBC, MG #### [facility] [address] [place] [address] Monocytes/100 WBC Auto (Bld) Ordered By: Tootie Richmond on 10-17-2024 Monocytes/100 WBC (Bld) Automated monocyte % . [facility] Monocytes/100 leukocytes in Blood by Automated countOrdered By: Tootie Richmond on 10-17-2024 Monocytes/100 WBC (Bld) 7.2 % Normal . [facility] Comment on above: Performed By: #### B MP, CBC, MG #### [facility] [address] [place] [address] Neutrophils Auto (Bld) [#/Vo l]Ordered By: Tootie Richmond on 10-17-2024 Neutrophils (Bld) [#/Vol] Neutrophils [#/volume] in Blood by Automated count High 1.8-7.7 [facility] Neutrophils [#/volume] in Bl ood by Automated countOrdered By: Tootie Richmond on 10-17-2024 Neutrophils (Bld) [#/Vol] 10.9 10*3/uL High 1.8-7.7 [facility] Comment on above: Performed By: #### B MP, CBC, MG #### [address] Neutrophils/100 WBC Auto (Bl d)Ordered By: Tootie Richmond on 10-17-2024 Neutrophils/100 WBC (Bld) Automated neutrophil % . [facility] Neutrophils/100 leukocytes i n Blood by Automated countOrdered By: Tootie Richmond on 10-17-2024 Neutrophils/100 WBC (Bld) 74.5 % Normal . [facility] Comment on above: Performed By: #### B MP, CBC, MG #### [address] No Panel InformationOrdered By: Vincenzo Caraballo on 10-17-2024 Bedside Glucose Comment Glu2: cleaned meter [facility] Nucleated erythrocytes [Pres ence] in Blood by Automated countOrdered By: Tootie Richmond on 10-17-2024 Nucleated RBC Auto Ql (Bld) Nucleated erythrocytes [Presence] in Blood by Automated count 0-0.5 [facility] Nucleated RBC Auto Ql (Bld) 0.1 /100{WBC} 0-0.5 [facility] Troponin I High Sensitivityo n 10-17-2024 Troponin I High Sensitivity 14 Normal 0-20 [facility] Comment on above: Result Comment: The Troponin units of report have been changed to meet the Chest Pain Accreditation requirement, element EC5.M1l2. Troponin units are changed from pg/ml to ng/L. Also, the decimal is removed and results are in whole numbers. PERFORMED BY: [place] [address] PATHOLOGIST LICENSED VETERINARY TECHNICIAN ERASMO SADLER M.D. Performed By: #### H S TROP #### [address] Troponin I.cardiac [Mass/vol ume] in Serum or Plasma by Detection limit <= 0.01 ng/Ordered By: Keila Davis on 10-17-2024 Troponin I.cardiac DL <= 0.01 ng/mL [Mass/Vol] Troponin I.cardiac [Mass/volume] in Serum or Plasma by Detection limit <= 0.01 ng/ 0-20 [facility] Comment on above: The Troponin units o f report have been changed to meet the Chest Pain Accreditation requirement, element EC5.M1l2. Troponin units are changed from pg/ml to ng/L. Also, the decimal is removed and results are in whole numbers. Troponin I.cardiac [Mass/vol ume] in Serum or Plasma by Detection limit <= 0.01 ng/mLOrdered By: Keila Davis on 10-17-2024 Troponin I.cardiac DL <= 0.01 ng/mL [Mass/Vol] 14 ng/L 0-20 [facility] Comment on above: The Troponin units o f report have been changed to meet the Chest Pain Accreditation requirement, element EC5.M1l2. Troponin units are changed from pg/ml to ng/L. Also, the decimal is removed and results are in whole numbers. WBC Auto (Bld) [#/Vol]Ordere d By: Tootie Richmond on 10-17-2024 WBC (Bld) [#/Vol] Leukocytes [#/volume ] in Blood by Automated count High 4.1-10.5 [facility] X-ray reportOrdered By: Keagan Trejo on 10-17-2024 Study report [facility] [place] [address] XRay Report Signed Patient: Demarcus Calderon MR#: [id number] : 1955 Acct:[id number] Age/Sex: 69 / M ADM Date: 5 Loc: Room: [address] [place] [address] Type: ADM IN Attending Dr: Vincenzo Caraballo DO Copies to: Vincenzo Caraballo DO~ Ordering Provider: Vincenzo Caraballo DO Date of [...] Trejo M.D. 10/17/2024 9:46 AM Dictation Location: RADIO-PC-23 Transcribed By: CHARITY 10/17/24945 Dictated By: Miguel Trejo MD 10/17/24944 Signed By: 10/17/24945 [facility] Work Phone: XR chest 2V*on 10-17-2024 XR chest 2V* [facility] [place] [address] [place] [address] XRay Report Signed Patient: Demarcus Calderon MR#: [id number] : 1955 Acct:[id number] Age/Sex: 69 / M ADM Date: 10/16/24 Loc: Room: [address] [place] [address] Type: ADM IN Attending Dr: Vincenzo Caraballo [...] Trejo M.D. 10/17/2024 9:46 AM Dictation Location: RADIO--23 Transcribed By: CHARITY 10/17/24945 Dictated By: Miguel Trejo MD 10/17/24944 Signed By: 10/17/24945 Normal [facility] Ambulatory Visit Summaryon 0 08-26-2024 Ambulatory Visit [...] Appointments Sunday 8:00 AM EDT With: John BAPTISET MD Where: [facility] [address] 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 Normal [facility] Urology Office/Clinic Noteon 08-26-2024 Urology Office/Clinic [...] the plan Follow-up With When Contact Information EMILE SHELLEY, John Hauser, URL [address] [place] [id number]- Additional Instructions: 6-8 wks with PVR Patient Education Benign Prostatic Hyperplasia I, Dayanara Murrell, personally scribed for Dr. Baptiste on 08/26/2024 08:41:13. . Portions of this record may have been created with voice recognition artificial intelligence software, specifically Lengow, Thoora and or rumr. Substitutions may have occurred due to the inherent limitations of voice recognition and artificial intelligence software. 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 Normal [facility] Comment on above: Result Comment: Elec [...] John BAPTISTE MD Where: [facility] [place] [address] 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 ??? (more content not included)... 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 Normal [facility] Comment on above: Result Comment: Elec tronically Signed By: JOSEPH Peralta APRN, [place] X\.br\Date and Time Signed: 08/18/24 16:08 EDT\.br\Electronically Co-Signed By: Shree Stallworth\.br\Date and Time Co-Signed: 08/18/24 15:06 EDT Ambulatory Visit Summaryon 0 08-15-2024 Ambulatory Visit Summary Ambulatory Visit Summary DEMARCUS CALDERON :1955 Visit Date:08/15/2024 Ambulatory Visit Instructions Your Care Team Attending Physician - John BAPTISTE MD Primary Care Physician - Sera Flower PA-C Referring Physician - John BAPTISTE MD This Is Your Medications List acetaminophen-hydrocodone ([place] 325 mg-5 mg oral tablet) acetaminophen-tramadol (Ultracet [...] What How Much When Instructions Unchanged acetaminophen-hydrocodone ([place] 325 mg-5 mg oral tablet) See instructions [...] congestive heart failure 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 Please share your experience with us by completing your survey. We appreciate your feedback and thank you for choosing us for your care. Normal [facility] Inpatient Patient Summaryon 08-08-2024 Inpatient Patient Summary Inpatient Patient Summary [place] [address] Clinical Summary Person Information Name: DEMARCUS CALDERON Age: 69 Years : 1955 Sex: Male PCP: Sera Flower PA-C Marital Status: Race: White Ethnicity: Non- or Language: Arabic Visit Id: Visit Reason: BPH WITH LUTS Speciality: Acuity: Enc Type: Outpatient Med Service: Surgery Arrival: 08/08/2024 12:42:16 Discharge: Dispo Type: Address: [address] [place] [id number] Provider Notes: Diagnosis: Other obstructive and reflux uropathy Problems Active BPH with obstruction/lower urinary tract symptoms Chronic prostatitis Urinary retention Elevated PSA Chronic systolic congestive heart failure 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 Care Team Members: Attending Physician: John BAPTISET MD Consulting Physician: Referring Physician: John BAPTISTE MD Follow up: With: Address: When: [facility] [address], [place] [phone] Business (1) Comments: Push the fluids to keep the urine clear. Stay on the Flomax for now. Some discharge instructions have been provided. If the bleeding gets severe, or the catheter is clogging from blood clots, you need to go to the ER for irrigation. Will make a one week appt. to remove the catheter. Type Location Start Finish [facility] Urology CALL PAT [facility] 08/13/2024 12:00 PM 08/13/2024 12:30 PM Confirmed Patient Education Information: EU - [employer] Discharge Instructions (Custom) [facility] Main OR Intraoperative Recor don 08-08-2024 Main OR Intraoperative Record Main OR Intraoperative Record IntraOp Document Type FTURO Summary Primary Physician: John BAPTISTE MD Finalized Date/Time: 08/08/24 14:01:11 Pt. Name: KVNGDEMARCUS/Sex: 1955 Male Med Rec #: [id number] Physician: John BAPTISTE MD Financial #: [id number] Pt. Type: O Room/Bed: / Admit/Disch: 08/08/24 12:42:16 - Institution: Case Times FTURO Entry 1 Patient Times In Room 08/08/24 13:20:00 Out Room 08/08/24 14:00:00 Procedure Times Start 08/08/24 13:25:00 Stop 08/08/24 13:41:00 Anesthesia Times Last Modified By: Demetrice CAMACHO, Leena Hauser 08/08/24 14:00:52 General Comments: 20FR 3WAY CATHETER TO LEG BAG INSERTED BY DR. EMILE HERNANDEZ,RN Case Attendance FTURO Entry 1 Entry 2 Entry 3 Case Attendee EMILE SHELLEY, John Hernandez RN, Dian Jackman Role Performed Surgeon - Primary Office Inspector - Primary Scrub - Primary Time In [...] CARTRIDGE CARTRIDGE CARTRIDGE Serial Number Lot Number [id number] Belt Glass Sander NEOTRACT NEOTRACT NEOTRACT Catalog ???# [id number] Size Expiration Date 08/19/25 08/19/25 01/22/26 Usage Data Implant Site PROSTATE PROSTATE PROSTATE Quantity 1 5 2 Temperature Reconstitution Method Outcomes Met? Yes Yes Yes Last Modified By: Demetrice RN, Leena Hernandez RN, Leena Hernandez RN, Leena Hauser 08/08/24 Celina P 08/08/24 Celina P 08/08/24 13:30:08 13:37:17 13:39:37 Post-Care Text: The [...] patient problems (more content not included)... Normal [facility] Main OR Preoperative Recordo n 08-08-2024 Main OR Preoperative Record Main OR Preoperative Record Holding Area Document Type FTURO Summary Primary Physician: John BAPTISTE MD Finalized Date/Time: 08/08/24 13:16:05 Pt. Name: DEMARCUS CALDERON/Sex: 1955 Male Med Rec #: [id number] Physician: John BAPTISTE MD Financial #: [id number] Pt. Type: O Room/Bed: / Admit/Disch: 08/08/24 [...] No Pain Comment: N/A Skin Integrity Intact, Turner, Warm, & Dry Vitals - EU Blood Pressure 146/74 Pulse 58 bpm Respirations 18 br/min SPO2 95 % Additional None Specimens Comment N/A Specimens Collected Residual Amount - 0 RN Reviewed Yes Post Void Last Modified By: Bonny Brenner 08/08/24 13:15:24 Finalized By: Bonny Brenner Document Signatures Signed By: Bonny Brenner 08/08/24 13:15 Bonny Brenner 08/08/24 13:16 Normal [facility] Operative Reporton Operative Report Operative Report Patient: DEMARCUS CALDERON Age: 69 years Sex: Male : 1955 Associated Diagnoses: None Author: John BAPTISTE MD Procedure Operative Information Details: Date/ Time: 08/08/2024 13:41:00. Pre-Op Dx: Acute urinary retention (ZJP38-DL R33.8, Working, Medical), BPH with obstruction/lower urinary tract symptoms (ADB91-TS N40.1, Working, Medical). Post-Op Dx: Same. Anesthesia [...] procedure (10 mg diazepam, 5/325 mg of [place]), Local Anesthesia (60cc 2% Xylocaine liquid inserted [...] persistent/severe. He agrees with the plan. Normal [facility] Comment on above: Result Comment: Elec tronically Signed By: John BAPTISTE MD\.br\Date and Time Signed: 08/08/24 13:51 EDT Outpatient Surgery Discharge Instructionon 08-08-2024 Outpatient Surgery Discharge Instruction Outpatient Surgery Discharge Instruction [address] [address] Patient Discharge Instructions PERSON INFORMATION [...] up: With: Address: When: John BAPTISTE [address] [place] [address], [address], [place] [id number] Business (1) Comments: Push the fluids to [...] Start [facility]ish [facility] Urology CALL PAT FT [facility] Urology Surgical Services 08/13/2024 12:00 PM [...] call? Yes (more content not included)... Normal [facility] Urology Office/Clinic Noteon 06-23-2024 Urology Office/Clinic [...] Contact Information John BAPTISTE MD, URL [address] [place] [id number]- Additional Instructions: schedule Urolift Patient Education Prostatic Urethral Lift Dayanara Munoz, personally scribed for Dr. Baptiste on 06/23/2024 15:40:59. . Documentation recorded by the scribeDayanara, accurately reflects the services(s) I performed and decisions made by me. Authenticated by Dr. Baptiste on 06/23/2024 15:42:23. Portions of this record may have been created with voice recognition artificial intelligence software, specif (more content not included)... Normal [facility] Comment on above: Result Comment: Elec [...] (R97.20: Elevated prostate specific antigen [PSA]) PSA: 03/04/22 - 2.33 09/14/23 - 2.87 02/27/24 - [...] Contact Information ADRIÁN DELACRUZ, SU [place], URL [address] 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 PSA Totalon 04-25-2024 Prostate specific Ag [Mass/Vol] 2.3 ng/mL Normal 0.1-3.5 [facility] Comment on above: Result Comment: The concentration of PSA determined by different manufacturers can vary due to differences in assay methods and reagent specificity. Values obtained from different assay methods cannot be used interchangeably. The methodology used for this result was chemiluminescence using [employer]'s Access Hybritech PSA reagent. Performed By: #### 1 [id number] #### [facility] [address] [place] [address] No Panel Informationon 02-18 [facility] WHITE BLOOD CELLSon 02-19-20 24 WHITE BLOOD CELLS White Blood Cells [facility] WHITE BLOOD CELLS None seen [facility] Activated partial thrombopla stin time (aPTT) in platelet poor plasma by coagulation aOrdered By: Jasper Martinez on 06-14-2023 aPTT Coag (PPP) [Time] 30.2 s 25.1-36.5 [facility] Comment on above: A hematocrit value g reater than 55% may lead to inaccurate results in coagulation testing. Patients having hematocrit values >55% require a special collection tube for coagulation studies. Please contact the laboratory at [phone] for redraw instructions. Alanine aminotransferase [En zymatic activity/volume] in Serum or PlasmaOrdered By: Jasper Martinez on 06-14-2023 ALT [Catalytic activity/Vol] 37 U/L 7-52 [facility] Albumin [Mass/volume] in Ser um or Plasma by Bromocresol green (BCG) dye binding methoOrdered By: Jasper Martinez on 06-14-2023 Albumin BCG dye [Mass/Vol] 4.1 g/dL 3.5-5.7 [facility] Alkaline phosphatase [Enzyma tic activity/volume] in Serum or PlasmaOrdered By: Jasper Martinez on 06-14-2023 ALP [Catalytic activity/Vol] 59 U/L 34-104 [facility] Aspartate aminotransferase [ Enzymatic activity/volume] in Serum or PlasmaOrdered By: Jasper Martinez on 06-14-2023 AST [Catalytic activity/Vol] 29 U/L 13-39 [facility] Basophils Auto (Bld) [#/Vol] Ordered By: Jasper Martinez on 06-14-2023 Basophils (Bld) [#/Vol] 0.0 10*3/uL 0.0-0.2 [facility] Basophils/100 WBC Auto (Bld) Ordered By: Jasper Martinez on 06-14-2023 Basophils/100 WBC (Bld) 0.6 % . [facility] Bilirubin.total [Mass/volume ] in Serum or PlasmaOrdered By: Jasper Martinez on 06-14-2023 Bilirubin [Mass/Vol] 0.4 mg/dL 0.3-1.0 [facility] COVID CepheidOrdered By: Asya Martinez on 06-14-2023 SARS-CoV-2 (COVID-19) Ab IA Ql Negative Negative [facility] Comment on above: This is a duplicate [employer] Xpert Xpress CoV-2/Flu/RSV Plus RNA by RT-PCR result to be used for statistical tracking purpose only. SARS-CoV-2 (COVID-19) RNA VERONA+probe Ql (Unsp spec) [facility] Calcium [Mass/volume] in Ser um or PlasmaOrdered By: Jasper Martinez on 06-14-2023 Calcium [Mass/Vol] 9.0 mg/dL 8.6-10.3 [facility] Carbon dioxide, total [Moles /volume] in Serum or PlasmaOrdered By: Jsaper Martinez on 06-14-2023 CO2 [Moles/Vol] 23.4 mmol/L 21.0-31.0 [facility] Chloride [Moles/volume] in S taylor or PlasmaOrdered By: Jasper Martinez on 06-14-2023 Chloride [Moles/Vol] 105 mmol/L 98-107 [facility] Creatine kinase [Enzymatic a ctivity/volume] in Serum or PlasmaOrdered By: Jasper Martinez on 06-14-2023 CK [Catalytic activity/Vol] 185 U/L 30-223 [facility] Creatinine [Mass/volume] in Serum or PlasmaOrdered By: Jasper Martinez on 06-14-2023 Creatinine [Mass/Vol] 0.89 mg/dL 0.70-1.[address] [facility] Eosinophils Auto (Bld) [#/Vo l]Ordered By: Jasper Martinez on 06-14-2023 Eosinophils (Bld) [#/Vol] 0.8 10*3/uL 0.0-0.45 [facility] Eosinophils/100 WBC Auto (Bl d)Ordered By: Jasper Martinez on 06-14-2023 Eosinophils/100 WBC (Bld) 9.6 % . [facility] Erythrocyte distribution wid th Auto (RBC) [Ratio]Ordered By: Jasper Martinez on 06-14-2023 Erythrocyte distribution width (RBC) [Ratio] 14.4 % 12.0-14.8 [facility] Globulin Calc (S) [Mass/Vol] Ordered By: Jasper Martinez on 06-14-2023 Globulin (S) [Mass/Vol] 2.5 g/dL [facility] Glucose [Mass/volume] in Ser um or PlasmaOrdered By: Jasper Martinez on 06-14-2023 Glucose [Mass/Vol] 144 mg/dL 70-100 [facility] Comment on above: ADA recommended refe rence rangeRandom Glucose Reference Range is dependent on time and content of last meal. Glucose of more than 200 mg/dL in a nonstressed, ambulatory subject supports the diagnosis of Diabetes Mellitus. Hematocrit Auto (Bld) [Volum e fraction]Ordered By: Jasper Martinez on 06-14-2023 Hematocrit (Bld) [Volume fraction] 40.8 % 38.8-50.0 [facility] Hemoglobin [Mass/volume] in BloodOrdered By: Jasper Martinez on 06-14-2023 Hemoglobin (Bld) [Mass/Vol] 14.3 g/dL 13.0-17.0 [facility] INR in Platelet poor plasma by Coagulation assayOrdered By: Jasper Martinez on 06-14-2023 INR Coag (PPP) [Relative time] 1.1 {INR} [facility] Comment on above: INR Therapeutic Rang e [...] RBC Auto (Bld) [#/Vol] 8.1 10*3/uL 4.1-10.5 [facility] Lymphocytes Auto (Bld) [#/Vo l]Ordered By: Jasper Martinez on 06-14-2023 Lymphocytes (Bld) [#/Vol] 1.5 10*3/uL 1.00-4.8 [facility] Lymphocytes/100 WBC Auto (Bl d)Ordered By: Jasper Martinez on 06-14-2023 Lymphocytes/100 WBC (Bld) 18.5 % . [facility] MCH Auto (RBC) [Entitic mass ]Ordered By: Jasper Martinez on 06-14-2023 MCH (RBC) [Entitic mass] 30.1 pg 27.5-35.2 [facility] MCHC Auto (RBC) [Mass/Vol]Or dered By: Jasper Martinez on 06-14-2023 MCHC (RBC) [Mass/Vol] 34.9 g/dL 32.5-35.[address] [facility] MCV Auto (RBC) [Entitic vol] Ordered By: Jasper Martinez on 06-14-2023 MCV (RBC) [Entitic vol] 86.2 fL 83.5-101 [facility] Magnesium [Mass/volume] in S taylor or PlasmaOrdered By: Jasper Martinez on 06-14-2023 Magnesium [Mass/Vol] 2.0 mg/dL 1.9-2.7 [facility] Monocyte distribution width [Entitic volume] in Blood by AutomatedOrdered By: Jasper Martinez on 06-14-2023 Monocyte distribution width Auto (Bld) [Entitic vol] 16.39 % 0.00-20.00 [facility] Monocytes Auto (Bld) [#/Vol] Ordered By: Jasper Martinez on 06-14-2023 Monocytes (Bld) [#/Vol] 0.8 10*3/uL 0.0-0.8 [facility] Monocytes/100 WBC Auto (Bld) Ordered By: Jasper Martinez on 06-14-2023 Monocytes/100 WBC (Bld) 10.1 % . [facility] Natriuretic peptide B [Mass/ Vol]Ordered By: Jasper Martinez on 06-14-2023 Natriuretic peptide B (Bld) [Mass/Vol] 67.0 pg/mL 5-100 [facility] Neutrophils Auto (Bld) [#/Vo l]Ordered By: Jasper Martinez on 06-14-2023 Neutrophils (Bld) [#/Vol] 4.9 10*3/uL 1.8-7.7 [facility] Neutrophils/100 WBC Auto (Bl d)Ordered By: Jasper Martinez on 06-14-2023 Neutrophils/100 WBC (Bld) 61.2 % . [facility] No Panel InformationOrdered By: Jasper Martinez on 06-14-2023 Estimated GFR (CKD-EPI) > 60.0 mL/Min [facility] Creatinine Clearance (Chem 92.42 [facility] Nucleated erythrocytes [Pres ence] in Blood by Automated countOrdered By: Jasper Martinez on 06-14-2023 Nucleated RBC Auto Ql (Bld) 0.1 /100{WBC} 0-0.5 [facility] Platelet mean volume Auto (B ld) [Entitic vol]Ordered By: Jasper Martinez on 06-14-2023 Platelet mean volume (Bld) [Entitic vol] 8.4 fL 6.6-10.1 [facility] Platelets Auto (Bld) [#/Vol] Ordered By: Jasper Martinez on 06-14-2023 Platelets (Bld) [#/Vol] 181 10*3/uL 150-450 [facility] Potassium [Moles/volume] in Serum or PlasmaOrdered By: Jasper Martinez on 06-14-2023 Potassium [Moles/Vol] 3.9 mmol/L 3.5-5.[address] [facility] Protein [Mass/volume] in Ser um or PlasmaOrdered By: Jasper Martinez on 06-14-2023 Protein [Mass/Vol] 6.6 g/dL 6.4-8.9 [facility] Prothrombin time (PT)Ordered By: Jasper Martinez on 06-14-2023 PT Coag (PPP) [Time] 12.1 s 9.0-12.9 [facility] Comment on above: A hematocrit value g reater than 55% may lead to inaccurate results in coagulation testing. Patients having hematocrit values >55% require a special collection tube for coagulation studies. Please contact the laboratory at [phone] for redraw instructions. RBC Auto (Bld) [#/Vol]Ordere d By: Jasper Martinez on 06-14-2023 RBC (Bld) [#/Vol] 4.74 10*6/uL 3.90-5.60 [facility] Serum or plasma albumin/glob ulin mass ratioOrdered By: Jasper Martinez on 06-14-2023 Albumin/Globulin [Mass ratio] 1.6 {ratio} [facility] Serum or plasma anion gap de terminationOrdered By: Jasper Martinez on 06-14-2023 Anion gap [Moles/Vol] 11.5 mmol/L 6.0-15.0 [facility] Sodium [Moles/volume] in Ser um or PlasmaOrdered By: Jasper Martinez on 06-14-2023 Sodium [Moles/Vol] 136 mmol/L 136-145 [facility] Troponin I.cardiac [Mass/vol ume] in Serum or Plasma by Detection limit <= 0.01 ng/Ordered By: Jasper Martinez on 06-14-2023 Troponin I.cardiac DL <= 0.01 ng/mL [Mass/Vol] 26.8 pg/mL 0.0-20.0 [facility] Urea nitrogen [Mass/volume] in Serum or PlasmaOrdered By: Jasper Martinez on 06-14-2023 Urea nitrogen [Mass/Vol] 12 mg/dL 7 [facility] WBC Auto (Bld) [#/Vol]Ordere d By: Jasper Martinez on 06-14-2023 WBC (Bld) [#/Vol] 8.1 10*3/uL 4.1-10.5 [facility] Cardiac echo study Procedure on 03-20-2023 Ordered by an unspec ified provider. [facility] Alanine aminotransferase [En zymatic activity/volume] in Serum or PlasmaOrdered By: Sera Flower on 02-05-2023 ALT [Catalytic activity/Vol] 51 U/L [facility] Albumin [Mass/volume] in Ser um or Plasma by Bromocresol green (BCG) dye binding methoOrdered By: Sera Flower on 02-05-2023 Albumin BCG dye [Mass/Vol] 4.4 g/dL 3.5-5.7 [facility] Alkaline phosphatase [Enzyma tic activity/volume] in Serum or PlasmaOrdered By: Sera Flower on 02-05-2023 ALP [Catalytic activity/Vol] 61 U/L 34-104 [facility] Aspartate aminotransferase [ Enzymatic activity/volume] in Serum or PlasmaOrdered By: Sera Flower on 02-05-2023 AST [Catalytic activity/Vol] 39 U/L 13-39 [facility] Bilirubin.total [Mass/volume ] in Serum or PlasmaOrdered By: Sera Flower on 02-05-2023 Bilirubin [Mass/Vol] 0.7 mg/dL 0.3-1.0 [facility] Calcium [Mass/volume] in Ser um or PlasmaOrdered By: Sera Flower on 02-05-2023 Calcium [Mass/Vol] 9.1 mg/dL 8.6-10.3 [facility] Carbon dioxide, total [Moles /volume] in Serum or PlasmaOrdered By: Sera Flower on 02-05-2023 CO2 [Moles/Vol] 28.0 mmol/L 21.0-31.0 [facility] Chloride [Moles/volume] in S taylor or PlasmaOrdered By: Sera Flower on 02-05-2023 Chloride [Moles/Vol] 103 mmol/L 98-107 [facility] Creatinine [Mass/volume] in Serum or PlasmaOrdered By: Sera Flower on 02-05-2023 Creatinine [Mass/Vol] 1.00 mg/dL 0.70-1.[address] [facility] Globulin Calc (S) [Mass/Vol] Ordered By: Sera Flower on 02-05-2023 Globulin (S) [Mass/Vol] 1.7 g/dL [facility] Glucose [Mass/volume] in Ser um or PlasmaOrdered By: Sera Flower on 02-05-2023 Glucose [Mass/Vol] 93 mg/dL 70-100 [facility] Comment on above: ADA recommended refe rence rangeRandom Glucose Reference Range is dependent on time and content of last meal. Glucose of more than 200 mg/dL in a nonstressed, ambulatory subject supports the diagnosis of Diabetes Mellitus. No Panel InformationOrdered By: Sera Flower on 02-05-2023 Estimated GFR (CKD-EPI) > 60.0 mL/Min [facility] Creatinine Clearance (Chem N/A [facility] No Panel Informationon 02-05 [facility]-Sandu daniel 250 DO Work Phone: Potassium [Moles/volume] in Serum or PlasmaOrdered By: Sera Flower on 02-05-2023 Potassium [Moles/Vol] 4.4 mmol/L 3.5-5.[address] [facility] Protein [Mass/volume] in Ser um or PlasmaOrdered By: Sera Flower on 02-05-2023 Protein [Mass/Vol] 6.1 g/dL 6.4-8.9 [facility] Serum or plasma albumin/glob ulin mass ratioOrdered By: Sera Flower on 02-05-2023 Albumin/Globulin [Mass ratio] 2.6 {ratio} [facility] Serum or plasma anion gap de terminationOrdered By: Sera Flower on 02-05-2023 Anion gap [Moles/Vol] 11.4 mmol/L 6.0-15.0 [facility] Sodium [Moles/volume] in Ser um or PlasmaOrdered By: Sera Flower on 02-05-2023 Sodium [Moles/Vol] 138 mmol/L 136-145 [facility] Urea nitrogen [Mass/volume] in Serum or PlasmaOrdered By: Sera Flower on 02-05-2023 Urea nitrogen [Mass/Vol] 15 mg/dL 7-25 [facility] CARDIAC STRESS/REST INJE CTIONon 01-03-2023 [facility] CARDIAC STRESS/REST INJECTION Patient Name: DEMARCUS CALDERON STUDY: MYOCARDIAL PERFUSION STRESS TEST WITH LEXISCAN Performing facility: [facility], [address] [place] [address], [address] [place] [address] [facility] Provider: Rene Cortez MD, FACC PCP: Dr. Hunter Flower Supervising provider: Danna Davis DO, FACC INDICATION: CAD; HTN Hyperlipidemia Ischemic cardiomyopathy HISTORY: Gender: M; Age: 68 y/o ; Height: 172.72 cm; Weight: 998.0030807 kg. CAD; High Cholesterol; HTN; Quit smoking 38 years ago. Cardiac catheterization on 2009. PTCA on 2009. COMPARISON: Previous nuclear testing completed at [facility]. ACCESSION NUMBER(S): [id number]; [id number]; [id number] ORDERING CLINICIAN: RENE CORTEZ TECHNIQUE: TWO DAY [...] Electronically signed by: RENE CORTEZ MD Normal [facility] No Panel Informationon 01-03 Normal -[facility]-Sandu daniel 250 DO Work Phone: Office [...] Weight Tips; Status:Complete - Retrospective Authorization; Done: [id number] Some eating tips that can help you lose weight.; Status:Complete - Retrospective Authorization; Done: [id number] Essential hypertension, Ischemic cardiomyopathy Renew: Carvedilol 6.25 MG Oral Tablet (Coreg); TAKE 1 TABLET TWICE DAILY WITH MEALS SocHx: Former smoker Stop: Losartan Potassium 25 MG Oral Tablet Tobacco Use Screening; Status:Complete; Done: [id number] Unlinked Stop: hydroCHLOROthiazide 25 MG Oral Tablet [...] emphasis on low-calorie diet Rene Cortez MD, [facility] Surgical History Problems History of Coronary [...] No a (more content not included)... Normal [employer] Tobacco Screening.on Adult depression screening assessment No [facility] 250 DO Work Phone: Fall risk assessment a) No falls within the last year [facility] 250 DO Work Phone: Tobacco use status [facility] b) No [facility] 250 DO Work Phone: MRI Soft Tissue [...] by Ethan Walsh on 07/16/2022 1246 Normal [facility] MRI Brain w/o + w/on 023 MRI [...] by Sean Trejo on 07/01/2022 0911 Normal [facility]rapist Shaquille 06-21-2022 RAYSHAWN Telephone (INTMLN) -- DEMARCUS CALDERON ([id number]) 1955 M Date Time Provider Department 06/21/22 DEANDRA BENDER During your visit today, we recorded the following information about you: Delores Veda 06/21/2022 12:54 PM Signed [facility] called today. : 1955 Allergies: Codeine, Codeine-Guaifenesin, and Guaifenesin (home) [phone] (cell) Reason for call: Sasha F:[phone] Asking for the MRI orders and office notes to be faxed over to [facility]. Patient will be having them done there. Patient last appointment: Visit date not found The patients preferred pharmacy has been captured for this encounter? not asked Delores Davis [facility] [place] 06/21/2022 2:03 PM Signed [...] Status:Closed by ORQUIDEA SIBLEY on 06/21/22 Normal [facility] XR Ribs w/ PA Chest Left*on 03-13-2022 [...] by Ethan Walsh on 03/13/2022 1254 Normal [facility] XR Chest 2 Views*on 01-18-20 22 XR Chest 2 Views* COMPARISON: none TECHNIQUE: Upright PA and lateral views of the chest were obtained. FINDINGS: Heart is normal in size. Lungs are clear and well expanded. No pleural effusion or pneumothorax. The bony thorax is unremarkable. IMPRESSION: NO ACUTE CARDIOPULMONARY ABNORMALITY. Report reported and signed by AMALIA LOGAN on 01/17/2022 1243 Normal [facility] Tobacco Screening.on 022 Adult depression screening assessment No [facility] [address] 250 DO Work Phone: Fall risk assessment a) No falls within the last year [facility] [address] 250 DO Work Phone: Tobacco use status CPHS b) No [facility] [employer] 250 DO Work Phone: CT Chest w/Contraston [...] by AMALIA LOGAN on 08/04/2021 1346 Normal [facility] Complete Blood Count with Au to Diffon 07-29-2021 Basophils (Bld) [#/Vol] 0.05 10*3/uL Normal 0.00-0.20 [facility] Comment on above: Performed By: #### C MP, CBCAD #### [facility] [address] [place], [place] [id number] Basophils/100 WBC (Bld) 0.8 % Normal [facility] Comment on above: Performed By: #### C MP, CBCAD #### [facility] [address] [place], [place] [id number] Eosinophils (Bld) [#/Vol] 0.46 10*3/uL Normal 0.02-0.50 [facility] Comment on above: Performed By: #### C JOSE ANTONIO, CBCAD #### [facility] [address] [place], [place] [id number] Eosinophils/100 WBC (Bld) 7.7 % Normal [facility] Comment on above: Performed By: #### C JOSE ANTONIO, CBCAD #### [facility] [address] [place], [place] [id number] Erythrocyte distribution width (RBC) [Ratio] 13.3 % Normal 11.0-15.0 [facility] Comment on above: Performed By: #### C MP, CBCAD #### [facility] [address] [place], [place] [id number] Hematocrit (Bld) [Volume fraction] 42.2 % Normal 38.5-50.0 [facility] Comment on above: Performed By: #### C JOSE ANTONIO, CBCAD #### [facility] [address] [place], [place] [id number] Hemoglobin (Bld) [Mass/Vol] 14.5 g/dL Normal 13.0-17.1 [facility] Comment on above: Performed By: #### C JOSE ANTONIO, CBCAD #### [facility] [address] [place], [place] [id number] Lymphocytes (Bld) [#/Vol] 1.6 10*3/uL Normal 0.9-3.9 [facility] Comment on above: Performed By: #### C JOSE ANTONIO, CBCAD #### [facility] [address] [place], [place] [id number] Lymphocytes/100 WBC (Bld) 26.1 % Normal [facility] Comment on above: Performed By: #### C JOSE ANTONIO, CBCAD #### [facility] [address] [place], [place] [id number] MCH (RBC) [Entitic mass] 29.7 pg Normal 27.0-33.0 [facility] Comment on above: Performed By: #### C JOSE ANTONIO, CBCAD #### [facility] [address] [place], [place] [id number] MCHC (RBC) [Mass/Vol] 34.4 g/dL Normal 32.0-36.0 [facility] Comment on above: Performed By: #### C JOSE ANTONIO, CBCAD #### [facility] [address] [place], [place] [id number] MCV (RBC) [Entitic vol] 86 fL Normal 80-100 [facility] Comment on above: Performed By: #### C MP, CBCAD #### [facility] [address] [place], [place] [id number] Monocytes (Bld) [#/Vol] 0.9 10*3/uL Normal 0.2-0.9 [facility] Comment on above: Performed By: #### C MP, CBCAD #### [facility] [address] [place], [place] [id number] Monocytes/100 WBC (Bld) 14.6 % Normal [facility] Comment on above: Performed By: #### C MP, CBCAD #### [facility] [address] [place], [place] [id number] Neutrophils (Bld) [#/Vol] 3.0 10*3/uL Normal 1.5-7.8 [facility] Comment on above: Performed By: #### C MP, CBCAD #### [facility] [address] [place], [place] [id number] Neutrophils/100 WBC (Bld) 50.5 % Normal [facility] Comment on above: Performed By: #### C MP, CBCAD #### [facility] [address] [place], [place] [id number] Platelet mean volume (Bld) [Entitic vol] 10.90 fL Normal 7.50-12.50 [facility] Comment on above: Performed By: #### C MP, CBCAD #### [facility] [address] [place], [place] [id number] Platelets (Bld) [#/Vol] 166 10*3/uL Normal 140-400 [facility] Specialist Comment on above: Performed By: #### C MP, CBCAD #### [facility] [address] [place], [place] [id number] RBC (Bld) [#/Vol] 4.89 10*6/uL Normal 4.20-5.80 [facility] Specialist Comment on above: Performed By: #### C MP, CBCAD #### [facility] [address] [place], [place] [id number] RDW-SD 41.2 fL Normal 37.0-50.0 [facility] Comment on above: Performed By: #### C MP, CBCAD #### [facility] [address] [place], [place] [id number] WBC (Bld) [#/Vol] 5.9 10*3/uL Normal 3.8-11.0 Johann rn [place] [facility] Comment on above: Performed By: #### C MP, CBCAD #### [facility] [address] [place], [place] [id number] Comprehensive Metabolic Pane maria esther 07-29-2021 Albumin [Mass/Vol] 4.6 g/dL Normal 3.6-5.1 Johann r[facility] [place] [facility] Comment on above: Performed By: #### C JOSE ANTONIO, CBCAD #### [facility] [address] [place], [place] [id number] Albumin/Globulin [Mass ratio] 2.7 {ratio} High 1.0-2.5 [facility] Comment on above: Performed By: #### C JOSE ANTONIO, CBCAD #### [facility] [address] [place], [place] [id number] ALP [Catalytic activity/Vol] 74 U/L Normal 40-129 [facility] Comment on above: Performed By: #### C MP, CBCAD #### [facility] [address] [place], [place] [id number] ALT [Catalytic activity/Vol] 55 U/L High 9-46 [facility] Comment on above: Result Comment: 04/27 Female reference range changed. Performed By: #### C MP, CBCAD #### [facility] [address] [place], [place] [id number] Anion gap [Moles/Vol] 16 mmol/L Normal 12-20 [facility] [place] [facility] Comment on above: Result Comment: Effe ctive 06/02/2019 reference range changed. Performed By: #### C MP, CBCAD #### [facility] [address] [place], [place] [id number] AST [Catalytic activity/Vol] 39 U/L Normal 10-40 [facility] Comment on above: Performed By: #### C MP, CBCAD #### [facility] [address] [place], [place] [id number] BUN/CREA 13 Ratio Normal 6-22 [facility] Specialist Comment on above: Performed By: #### C MP, CBCAD #### [facility] [address] [place], [place] [id number] Calcium [Mass/Vol] 9.0 mg/dL Normal 8.6-10.2 [facility] Therapist Comment on above: Performed By: #### C MP, CBCAD #### [facility] [address] [place], [place] [id number] Chloride [Moles/Vol] 107 mmol/L Normal 98-107 [facility] Comment on above: Performed By: #### C MP, CBCAD #### [facility] [address], [place] [id number] CO2 [Moles/Vol] 20 mmol/L Normal 20-31 [facility] Specialist Comment on above: Performed By: #### C MP, CBCAD #### [facility] [address] [place], [place] [id number] Creatinine [Mass/Vol] 1.0 mg/dL Normal 0.7-1.4 [facility] Comment on above: Performed By: #### C MP, CBCAD #### [facility] [address] [place], [place] [id number] eGFRAA 94 mL/min/1.73m2 Normal >60 [facility] Specialist Comment on above: Performed By: #### C MP, CBCAD #### [facility] [address] [place], [place] [id number] eGFRNAA 78 mL/min/1.73m2 Normal >60 [facility] Specialist Comment on above: Performed By: #### C MP, CBCAD #### [facility] [address], [place] [id number] Globulin (S) [Mass/Vol] 1.7 g/dL Low 1.9-3.7 [facility] Specialist Comment on above: Performed By: #### C MP, CBCAD #### [facility] [address], [place] [id number] Glucose [Mass/Vol] 121 mg/dL High 65-99 Johann camacho [place] [facility] Comment on above: Result Comment: For FASTING Glucose --- ADA reference ranges: Normal 65-99 mg/dl Prediabetes 100-125 Diabetes >/= 126 Performed By: #### C MP, CBCAD #### [facility] [address] [place], [place] [id number] Potassium [Moles/Vol] 4.2 mmol/L Normal 3.5-5.5 [facility] Comment on above: Performed By: #### C MP, CBCAD #### [facility] [address], [place] [id number] Protein [Mass/Vol] 6.3 g/dL Normal 6.1-8.1 Johann camacho [place] [facility] Comment on above: Performed By: #### C MP, CBCAD #### [facility] [address], [place] [id number] Sodium [Moles/Vol] 139 mmol/L Normal 135-146 Johann [facility] Therapist Comment on above: Performed By: #### C MP, CBCAD #### [facility] [address], [place] [id number] TBIL <0.3 Normal [facility] Specialist Comment on above: Performed By: #### C MP, CBCAD #### [facility] [address] [place], [place] [id number] Urea nitrogen [Mass/Vol] 12 mg/dL Normal 7-25 [facility] Specialist Comment on above: Performed By: #### C MP, CBCAD #### [facility] [address] [place], [place] [id number] Microalbumin (with Creat)on 07-29-2021 mALB <1.2 Low [facility] Specialist Comment on above: Result Comment: Unab le to calculate mALB/Crea ratio, mALB is <1.2 mg/dL mALB reference range not established. Performed By: #### m ALBC #### [facility] [address] [place], [place] [id number] UCREA 85 mg/dL Normal 39-259 [facility] Specialist Comment on above: Performed By: #### m ALBC #### [facility] [address] [place], [place] [id number] Prostatic Specific Antigen, Totalon 07-29-2021 TPSA 2.330 ng/mL Normal <4.000 [facility] Specialist Comment on above: Result Comment: PSA Test Method: ECLIA/Brandi e 601 Performed By: #### P SA #### [facility] [address] [place], [place] [id number] Q - URINALYSIS,COMPLETEon Appearance (U) CLEAR Normal CLEAR [facility] Comment on above: Order Comment: [facility] performed at: [facility], [address] , [address] [place] [address], [address] [place] [address], Package Lift Operator: Rafi Agustin MD [facility] Date/Time: [facility] Results Received Date/Time: [facility] Reported Date/Time: Performed By: #### 3 4F #### [facility] [address] [place] [address] BACTERIA NONE SEEN Normal NONE SEEN [facility] Specialist Comment on above: Order Comment: [facility] performed at: [facility], [facility], [address] , [address] [place] [address], [address] [place] [address], Package Lift Operator: Rafi Agustin MD [facility] Date/Time: [facility] Results Received Date/Time: [facility] Reported Date/Time: Performed By: #### 3 4F #### [facility] [address] [place] [address] Bilirubin Ql (U) Negative Normal NEGATIVE [facility] Specialist Comment on above: Order Comment: [facility] performed at: [facility], [address] , [address] [place] [address], [address] [place] [address], Package Lift Operator: Rafi Agustin MD [facility] Date/Time: [facility] Results Received Date/Time: [facility] Reported Date/Time: Performed By: #### 3 4F #### [facility] [address] [place] [address] Color (U) YELLOW Normal YELLOW [facility] Comment on above: Order Comment: [facility] performed at: [facility], [facility], [address] [place] [address], [address] [place] [address], [address] [place] [address], Package Lift Operator: Rafi Agustin MD [facility] Date/Time: [facility] Results Received Date/Time: [facility] Reported Date/Time: Performed By: #### 3 4F #### [facility] [address] [place] [address] Glucose Ql (U) Negative Normal NEGATIVE [facility] Comment on above: Order Comment: [facility] performed at: [facility], [facility], [address] [place] [address], [address] [place] [address], [address] [place] [address], Package Lift Operator: Rafi Agustin MD [facility] Date/Time: [facility] Results Received Date/Time: [facility] Reported Date/Time: Performed By: #### 3 4F #### [facility] [address] [place] [address] HYALINE CAST NONE SEEN Normal NONE SEEN [facility] Comment on above: Order Comment: [facility] performed at: [facility], [facility], [facility], [address] [place] [address], [address] [place] [address], Package Lift Operator: Rafi Agustin MD [facility] Date/Time: [facility] Results Received Date/Time: [facility] Reported Date/Time: Performed By: #### 3 4F #### [facility] [address] [place] [address] Ketones Ql (U) Negative Normal NEGATIVE [facility] Comment on above: Order Comment: [facility] performed at: [facility], [facility], [address] [facility], [address] [place] [address], [address] [place] [address], Package Lift Operator: Rafi Agustin MD [facility] Date/Time: [facility] Results Received Date/Time: [facility] Reported Date/Time: Performed By: #### 3 4F #### [facility] [address] [place] [address] Leukocyte esterase Test strip Ql (U) Negative Normal NEGATIVE [facility] Comment on above: Order Comment: [facility] performed at: [facility], [facility], [address] [place] [address], [address] [place] [address], [address] [place] [address], Package Lift Operator: Rafi Agustin MD [facility] Date/Time: [facility] Results Received Date/Time: [facility] Reported Date/Time: Performed By: #### 3 4F #### [facility] [address] [place] [address] Nitrite Ql (U) Negative Normal NEGATIVE [facility] Specialist Comment on above: Order Comment: [facility] performed at: [facility], [address] [place] [address], [address] [place] [address], [address] [place] [address], Package Lift Operator: Rafi Agustin MD [facility] Date/Time: [facility] Results Received Date/Time: [facility] Reported Date/Time: Performed By: #### 3 4F #### [facility] [address] [place] [address] OCCULT BLOOD Negative Normal NEGATIVE [facility] Comment on above: Order Comment: [facility] performed at: [facility], [address] [place] [address], [address] [place] [address], [address] [place] [address], Package Lift Operator: Rafi Agustin MD [facility] Date/Time: [facility] Results Received Date/Time: [facility] Reported Date/Time: Performed By: #### 3 4F #### [facility] [address] [place] [address] pH (U) 6.5 [pH] Normal 5.0-8.0 [facility] Comment on above: Order Comment: [facility] performed at: [facility], [address] [facility], [address] [place] [address], [address] [place] [address], Package Lift Operator: Rafi Agustin MD [facility] Date/Time: [facility] Results Received Date/Time: [facility] Reported Date/Time: Performed By: #### 3 4F #### [facility] [address] [place] [address] Protein Ql (U) Negative Normal NEGATIVE [facility] Comment on above: Order Comment: [facility] performed at: [facility], [facility], [address] [place] [address], [address] [place] [address], [address] [place] [address], Package Lift Operator: Rafi Agustin MD [facility] Date/Time: [facility] Results Received Date/Time: [facility] Reported Date/Time: Performed By: #### 3 4F #### [facility] [address] [place] [address] RBC NONE SEEN Normal < OR = 2 [facility] Comment on above: Order Comment: [facility] performed at: [facility], [facility], [address] [place] [address], [address] [place] [address], [address] [place] [address], Package Lift Operator: Rafi Agustin MD [facility] Date/Time: [facility] Results Received Date/Time: [facility] Reported Date/Time: Performed By: #### 3 4F #### [facility] [address] [place] [address] Specific gravity (U) [Rel density] 1.012 Normal 1.001-1.035 [facility] Comment on above: Order Comment: [facility] performed at: [facility], [facility], [address] [place] [address], [address] [place] [address], [address] [place] [address], Package Lift Operator: Rafi Agustin MD [facility] Date/Time: [facility] Results Received Date/Time: [facility] Reported Date/Time: Performed By: #### 3 4F #### [facility] [address] [place] [address] SQUAMOUS EPITHELIAL CELLS NONE SEEN Normal < OR = 5 [facility] Comment on above: Order Comment: [facility] performed at: [facility], [facility], [address] [facility], [address] [place], [address] [place] [address], Package Lift Operator: Rafi Agustin MD [facility] Date/Time: [facility] Results Received Date/Time: [facility] Reported Date/Time: Performed By: #### 3 4F #### [facility] [address] [place] [address] WBC NONE SEEN Normal < OR = 5 [facility] Specialist Comment on above: Order Comment: [facility] performed at: [facility], [facility], [address] [facility], [address] [place], [address] [place] [address], Package Lift Operator: Rafi Agustin MD [facility] Date/Time: [facility] Results Received Date/Time: [facility] Reported Date/Time: Performed By: #### 3 4F #### [facility] [address] [place] [address] No Panel Information [facility] Vital Signs Date Time Vital Sign Value Performing Clinician Facility 10-24-2024 09:46-0400 Body height 172.7 cm Kiya Richmond CHIEF [employer] Work Phone: [facility] 10-24-2024 09:46-0400 Body mass index (BMI) [Ratio] 33.82 kg/m2 Kiya Richmond CHIEF [employer] Work Phone: [facility] 10-24-2024 09:46-040 Body weight 100.88 kg Kiya Richmond CHIEF [employer] Work Phone: [facility] 10-24-2024 09:46-0400 Diastolic blood pressure 68 mm[Hg] Kiya Richmond CHIEF [employer] Work Phone: [facility] 10-24-2024 09:46-0400 Heart rate 84 /min Kiya Richmond CHIEF [employer] Work Phone: [facility] 10-24-2024 09:46-0400 Systolic blood pressure 102 mm[Hg] Kiya Richmond CHIEF [employer] Work Phone: [facility] 10-18-2024 13:00-0400 Diastolic blood pressure 65 mm[Hg] Sera Flower MD Work Phone: [facility] 10-18-2024 13:00-0400 Heart rate 75 /min Sera Flower MD Work Phone: [facility] 10-18-2024 13:00-0400 Respiratory rate 18 /min Sera Flower MD Work Phone: [facility] 10-18-2024 13:00-0400 SaO2% (BldA) [Mass fraction] 94 % Sera Flower MD Work Phone: [facility] 10-18-2024 13:00-0400 Systolic blood pressure 100 mm[Hg] Sera Flower MD Work Phone: [facility] 10-18-2024 12:00-0400 Body temperature 97.9 [degF] Sera Flower MD Work Phone: [facility] 10-18-2024 09:00-0400 Inhaled oxygen flow rate 2 L/min Sera Flower MD Work Phone: [facility] 10-18-2024 05:22-0400 Body weight 98.9 kg Sera Flower MD Work Phone: [facility] 10-17-2024 15:36-0400 Body height 172.72 cm Sera Flower MD Work Phone: [facility] 09-24-2024 13:29-0400 Body height 172.7 cm Sally Ba NP Work Phone: [facility] [place] 09-24-2024 13:29-0400 Body mass index (BMI) [Ratio] 36.64 kg/m2 Sally Ba NP Work Phone: [facility] [place] 09-24-2024 13:29-0400 Body weight 109.32 kg Sally Risaliti BANKING ANALYST Work Phone: [facility] [place] 09-24-2024 13:29-0400 Diastolic blood pressure 64 mm[Hg] Sally Risaliti BANKING ANALYST Work Phone: [facility] [place] 09-24-2024 13:29-0400 Heart rate 79 /min Sally Risaliti BANKING ANALYST Work Phone: [facility] [place] 09-24-2024 13:29-0400 SaO2% (BldA) [Mass fraction] 96 % Sally Risaliti BANKING ANALYST Work Phone: [facility] [place] 09-24-2024 13:29-0400 Systolic blood pressure 130 mm[Hg] Sally Risaliti BANKING ANALYST Work Phone: [facility] [place] 07-02-2024 09:14-0500 Body height 172.7 cm Sally Risaliti BANKING ANALYST Work Phone: [facility] [place] 07-02-2024 09:14-0500 Body mass index (BMI) [Ratio] 35.88 kg/m2 Sally Risaliti BANKING ANALYST Work Phone: [facility] [place] 07-02-2024 09:14-0500 Body weight 107.05 kg Sally Risaliti BANKING ANALYST Work Phone: [facility] [place] 07-02-2024 09:14-0500 Diastolic blood pressure 86 mm[Hg] Sally Risaliti BANKING ANALYST Work Phone: [facility] [place] 07-02-2024 09:14-0500 Heart rate 71 /min Sally Risaliti BANKING ANALYST Work Phone: [facility] [place] 07-02-2024 09:14-0500 SaO2% (BldA) [Mass fraction] 98 % Sally Risaliti BANKING ANALYST Work Phone: [facility] [place] 07-02-2024 09:14-0500 Systolic blood pressure 138 mm[Hg] Sally Risaliti BANKING ANALYST Work Phone: [facility] 01-27-2025 14:52-0500 Respiratory rate 16 /min John BAPTISTE [facility] 05-15-2024 08:53-0500 Body height 172.7 cm Rene Cortez MD Work Phone: [facility] 05-15-2024 08:53-0500 Body mass index (BMI) [Ratio] 36.28 kg/m2 Rene Cortez MD Work Phone: [facility] 05-15-2024 08:53-0500 Body weight 108.23 kg Rene Cortez MD Work Phone: [facility] 05-15-2024 08:53-0500 Diastolic blood pressure 66 mm[Hg] Rene Cortez MD Work Phone: [facility] 05-15-2024 08:53-0500 Heart rate 60 /min Rene Cortez MD Work Phone: [facility] 05-15-2024 08:53-0500 Systolic blood pressure 124 mm[Hg] Rene Cortez MD Work Phone: [facility] 05-07-2024 17:27-0500 Body mass index (BMI) [Ratio] 36.67 kg/m2 Gurjit Busby BANKING ANALYST Work Phone: [facility] [place] 05-07-2024 17:27-0500 Body temperature 97.3 [degF] Gurjit Busby BANKING ANALYST Work Phone: [facility] 05-07-2024 17:27-0500 Body weight 109.41 kg Gurjit Busby BANKING ANALYST Work Phone: [facility] [place] 05-07-2024 17:27-0500 Diastolic blood pressure 80 mm[Hg] Gurjit Busby BANKING ANALYST Work Phone: [facility] 05-07-2024 17:27-0500 Heart rate 73 /min Gurjit Busby BANKING ANALYST Work Phone: [facility] 05-07-2024 17:27-0500 SaO2% (BldA) [Mass fraction] 97 % Gurjit Busby BANKING ANALYST Work Phone: [facility] 05-07-2024 17:27-0500 Systolic blood pressure 138 mm[Hg] Gurjit Gregory BANKING ANALYST Work Phone: [facility] 04-28-2024 11:59-0500 Blood Pressure Location SU ADRIÁN [facility] 04-28-2024 11:59-0500 Diastolic blood pressure 68 mm[Hg] SU ADRIÁN [facility] 04-28-2024 11:59-0500 Heart rate 63 /min SU ADRIÁN [facility] 04-28-2024 11:59-0500 Systolic blood pressure 111 mm[Hg] SU ADRIÁN [facility] 04-16-2024 10:11-0500 Diastolic blood pressure 72 mm[Hg] SU ADRIÁN [facility] 04-16-2024 10:11-0500 Mean blood pressure 90 mm[Hg] SU ADRIÁN [facility] 04-16-2024 10:11-0500 Systolic blood pressure 126 mm[Hg] SU ADRIÁN [facility] 04-16-2024 09:45-0500 Blood Pressure Location SU ADRIÁN [facility] 04-16-2024 09:45-0500 Body temperature 98.6 [degF] SU ADRIÁN [facility] 04-16-2024 09:45-0500 Diastolic blood pressure 80 mm[Hg] SU COOK [facility] 04-16-2024 09:45-0500 Heart rate 65 /min SU COOK [facility] 04-16-2024 09:45-0500 Systolic blood pressure 148 mm[Hg] SU COOK [facility] 03-26-2024 13:03-0400 Body height 172.7 cm Sera Flower MD Work Phone: [facility] [place] 03-26-2024 13:03-0400 Body mass index (BMI) [Ratio] 35.88 kg/m2 Sera Flower MD Work Phone: [facility] [place] 03-26-2024 13:03-0400 Body weight 107.05 kg Sera Flower MD Work Phone: [facility] 03-26-2024 13:03-0400 Diastolic blood pressure 80 mm[Hg] Sera Flower MD Work Phone: [facility] 03-26-2024 13:03-0400 Heart rate 77 /min Sera Flower MD Work Phone: [facility] 03-26-2024 13:03-0400 SaO2% (BldA) [Mass fraction] 96 % Sera Flower MD Work Phone: [facility] 03-26-2024 13:03-0400 Systolic blood pressure 122 mm[Hg] Sera Flower MD Work Phone: [facility] 02-27-2024 10:29-0400 Body height 172.7 cm Sally Ba BANKING ANALYST Work Phone: [facility] 02-27-2024 10:29-0400 Body mass index (BMI) [Ratio] 35.43 kg/m2 Sally Ba BANKING ANALYST Work Phone: [facility] 02-27-2024 10:29-0400 Body weight 105.69 kg Sally Risaliti BANKING ANALYST Work Phone: [facility] 02-27-2024 10:29-0400 Diastolic blood pressure 84 mm[Hg] Sally Risaliti BANKING ANALYST Work Phone: [facility] 02-27-2024 10:29-0400 Heart rate 67 /min Sally Risaliti BANKING ANALYST Work Phone: [facility] 02-27-2024 10:29-0400 SaO2% (BldA) [Mass fraction] 97 % Sally Risaliti BANKING ANALYST Work Phone: [facility] 02-27-2024 10:29-0400 Systolic blood pressure 132 mm[Hg] Sally Risaliti BANKING ANALYST Work Phone: [facility] 10-18-2023 09:25-0400 Body height 172.7 cm Rene Cortez MD Work Phone: [facility] 10-18-2023 09:25-0400 Body mass index (BMI) [Ratio] 36.31 kg/m2 Rene Cortez MD Work Phone: [facility] 10-18-2023 09:25-0400 Body weight 108.32 kg Rene Cortez MD Work Phone: [facility] 10-18-2023 09:25-0400 Diastolic blood pressure 76 mm[Hg] Rene Cortez MD Work Phone: [facility] 10-18-2023 09:25-0400 Heart rate 68 /min Rene Cortez MD Work Phone: [facility] 10-18-2023 09:25-0400 Systolic blood pressure 120 mm[Hg] Rene Cortez MD Work Phone: [facility] 06-30-2023 10:23-0500 Body mass index (BMI) [Ratio] 35.28 kg/m2 Hosea Snyder DO Work Phone: [facility] 06-30-2023 10:23-0500 Body temperature 97.81 [degF] Hosea Snyder DO Work Phone: [facility] 06-30-2023 10:23-0500 Body weight 105.23 kg Hosea Snyder DO Work Phone: [facility] 06-30-2023 10:23-0500 Diastolic blood pressure 82 mm[Hg] Hosea Snyder DO Work Phone: [facility] 06-30-2023 10:23-0500 Heart rate 86 /min Hosea Snyder DO Work Phone: [facility] 06-30-2023 10:23-0500 Respiratory rate 18 /min Hosea Snyder DO Work Phone: [facility] 06-30-2023 10:23-0500 SaO2% (BldA) [Mass fraction] 94 % Hosea Snyder DO Work Phone: [facility] 06-30-2023 10:23-0500 Systolic blood pressure 138 mm[Hg] Hosea Snyder DO Work Phone: [facility] 06-14-2023 14:25-0500 Body temperature 97.7 [degF] MD Sera Flower Work Phone: [facility] 06-14-2023 14:25-0500 Diastolic blood pressure 74 mm[Hg] MD Sera Flower Work Phone: [facility] 06-14-2023 14:25-0500 Heart rate 78 /min MD Sera Flower Work Phone: [facility] 06-14-2023 14:25-0500 Respiratory rate 20 /min MD Sera Flower Work Phone: [facility] 06-14-2023 14:25-0500 SaO2% (BldA) [Mass fraction] 95 % MD Sera Flower Work Phone: [facility] 06-14-2023 14:25-0500 Systolic blood pressure 155 mm[Hg] MD Sera Flower Work Phone: [facility] 06-14-2023 11:48-0500 Body height 172.72 cm MD Sera Flower Work Phone: [facility] 06-14-2023 11:48-0500 Body weight 108.9 kg MD Sera Flower Work Phone: [facility] 03-23-2023 09:34-0400 Body height 172.7 cm Rene Cortez MD Work Phone: [facility] 03-23-2023 09:34-0400 Body mass index (BMI) [Ratio] 35.12 kg/m2 Rene Cortez MD Work Phone: [facility] 03-23-2023 09:34-0400 Body weight 104.78 kg Rene Cortez MD Work Phone: [facility] 03-23-2023 09:34-0400 Diastolic blood pressure 72 mm[Hg] Rene Cortez MD Work Phone: [facility] 03-23-2023 09:34-0400 Heart rate 60 /min Rene Cortez MD Work Phone: [facility] 03-23-2023 09:34-0400 Systolic blood pressure 128 mm[Hg] Rene Cortez MD Work Phone: [facility] 09-07-2022 11:31-0400 Body height 172.72 cm Sera Flower Work Phone: QC-Zazjdziiqg-Alzuo daniel 250 DO Work Phone: 09-07-2022 11:31-0400 Body mass index (BMI) [Ratio] 36.8 kg/m2 Sera Flower Work Phone: VT-Hbcfwcnmrb-Phsjt daniel 250 DO Work Phone: 09-07-2022 11:31-0400 Body surface area Derived from formula 2.22 m2 Sera Flower Work Phone: SF-Igqdflkyve-Yvckr daniel 250 DO Work Phone: 09-07-2022 11:31-0400 Body weight 109.77 kg Sera Flower Work Phone: BL-Fqhxfiblsm-Fxzxm daniel 250 DO Work Phone: 09-07-2022 11:31-0400 Diastolic blood pressure 68 mm[Hg] Sera Flower Work Phone: NP-Zltascajai-Ukbrj daniel 250 DO Work Phone: 09-07-2022 11:31-0400 Heart rate 76 /min Sera Flower Work Phone: YF-Tbwvndwpxt-Mzuuq daniel 250 DO Work Phone: 09-07-2022 11:31-0400 Systolic blood pressure 124 mm[Hg] Sera Flower Work Phone: IT-Cccetjmcct-Hosle daniel 250 DO Work Phone: 09-05-2021 14:04-0400 Body height 172.72 cm Sera Flower Work Phone: [facility] 250 DO Work Phone: 09-05-2021 14:04-0400 Body mass index (BMI) [Ratio] 36.49 kg/m2 Sera Flower Work Phone: [facility] 250 DO Work Phone: 09-05-2021 14:04-0400 Body surface area Derived from formula 2.21 m2 Sera Flower Work Phone: [facility] 250 DO Work Phone: 09-05-2021 14:04-0400 Body weight 108.86 kg Sera Flower Work Phone: [facility] 250 DO Work Phone: 09-05-2021 14:04-0400 Diastolic blood pressure 82 mm[Hg] Sera Flower Work Phone: [facility] 250 DO Work Phone: 09-05-2021 14:04-0400 Heart rate 70 /min Sera Barbara Ching Work Phone: [facility] 250 DO Work Phone: 09-05-2021 14:04-0400 Systolic blood pressure 132 mm[Hg] Sera Flower Work Phone: [facility] 250 DO Work Phone: Encounters Encounter Date Encounter Type Care Provider Facility Start: 06-09-2025 ambulatory John BAPTISTE Facility :[place] Start: 06-02-2025 ambulatory John BAPTISTE Facility : [place] Start: 12-09-2024 End: 12-09-2024 ambulatory AB [facility] Start: 12-02-2024 End: 12-02-2024 ambulatory John BAPTISTE Facility: [place] Start: 12-02-2024 End: 12-02-2024 Patient encounter procedure John BAPTISTE [facility] [place] Start: 11-21-2024 End: 11-21-2024 Patient encounter procedure Kiya Richmond APRN -Electrodiagnostics Work Phone: Start: 11-21-2024 End: 11-21-2024 ambulatory Sera Flower MD Work Phone: [facility] Work Phone: Start: 10-31-2024 End: 10-31-2024 Patient encounter procedure Sera Flower MD Work Phone: [facility] [place] Work Phone: Start: 10-31-2024 End: 10-31-2024 ambulatory Sera Flower MD Work Phone: [facility] Work Phone: Start: 10-24-2024 End: 10-24-2024 Office outpatient visit 25 minutes Kiya Richmond APRN-[employer]PER[employer] Work Phone: [facility] Comment on above: BMI 33.0-33.9,adult (Primary Dx); Ischemic cardiomyopathy Start: 10-24-2024 End: 10-24-2024 ambulatory [facility] Start: 10-16-2024 End: 10-18-2024 Evaluation and management of inpatient Sera Flower MD Work Phone: [facility] [place] [facility] Work Phone: Start: 09-24-2024 End: 09-24-2024 Office outpatient visit 25 minutes Sally Ba NP Work Phone: [facility] Comment on above: Gastroesophageal ref lux disease without esophagitis (Primary Dx); Essential hypertension (CMS/HCC); Pure hypercholesterolemia (CMS/HCC); Chronic systolic (congestive) heart failure; Prediabetes; Coronary artery disease involving algaaciq coronary artery of algaaciq heart without angina pectoris (CMS/HCC); Severe persistent asthma, uncomplicated (CMS/HCC); Elevated PSA; BMI 36.0-36.9,adult; Morbid (severe) obesity due to excess calories (CMS/HCC); Medicare annual wellness visit, subsequent; ACP (advance care planning) Start: 09-24-2024 End: 09-24-2024 Patient encounter procedure Sally Ba NP Work Phone: [facility] Start: 09-24-2024 End: 09-24-2024 ambulatory SALLY BA Not Available Start: 08-26-2024 End: 08-26-2024 ambulatory John BAPTISTE [facility] [place] Start: 08-18-2024 End: 08-18-2024 ambulatory Yasemin Peralta Facility:[facility] [place] Start: 08-15-2024 End: 08-15-2024 ambulatory John BAPTISTE [facility] [place] Start: 08-08-2024 End: 08-08-2024 ambulatory John BAPTISTE Facility:[facility] Start: 08-08-2024 End: 08-08-2024 Patient encounter procedure John BAPTISTE [facility] Start: 07-17-2024 End: 07-17-2024 Bamboo flowsheet Marybeth Long MD Work Phone: [facility] Start: 07-17-2024 End: 07-17-2024 Bamboo flowsheet Marybeth Long MD Work Phone: [facility] Start: 07-17-2024 End: 07-17-2024 Office outpatient new 45 minutes Marybeth Long MD Work Phone: [facility] Comment on above: Epidermal inclusion cyst (Primary Dx); Erythema intertrigo Start: 07-17-2024 End: 07-17-2024 ambulatory MARYBETH LONG Not Available Start: 07-02-2024 End: 07-02-2024 Office outpatient visit 25 minutes Sally Ba BANKING ANALYST Work Phone: [facility] Comment on above: Chronic obstructive pulmonary disease, unspecified COPD type (CMS/HCC) (Primary Dx); Bronchiectasis without complication (CMS/HCC); Rash; Skin lesion of back; Sebaceous cyst Start: 07-02-2024 End: 07-02-2024 ambulatory SALLY R CHICHOALITI Not Available Start: 06-23-2024 End: 06-23-2024 ambulatory John BAPTISTE Facility:[facility] Start: 06-23-2024 End: 06-23-2024 Patient encounter procedure John BAPTISTE [facility] Start: 05-15-2024 End: 05-15-2024 Office outpatient visit 25 minutes Rene Cortez MD Work Phone: [facility] Comment on above: Coronary artery dise ase involving algaaciq coronary artery of algaaciq heart without angina pectoris (Primary Dx); Essential hypertension; Ischemic cardiomyopathy; Mixed hyperlipidemia; Status post coronary artery stent placement; Former smoker; BMI 36.0-36.9,adult; Class 2 obesity Start: 05-15-2024 End: 05-15-[address] [facility] Start: 05-07-2024 End: 05-07-2024 ambulatory GURJIT BUSBY Not Available Start: 05-07-2024 End: 05-07-2024 Office outpatient visit 15 minutes Gurjit Busby BANKING ANALYST Work Phone: [facility] Comment on above: Non-recurrent acute serous otitis media of right ear (Primary Dx) Start: 04-28-2024 End: 04-28-2024 ambulatory PA-C SU E ADRIÁN Facility:[facility] Start: 04-28-2024 End: 04-28-2024 Patient encounter procedure SU E ADRIÁN [facility] Start: 04-25-2024 End: 04-25-2024 Lab Drop off SU Sierra ADRIÁN [facility] Start: 04-25-2024 End: 04-25-2024 ambulatory PA-C SU E ADRIÁN Facility:[facility] Start: 04-25-2024 End: 04-25-2024 Patient encounter procedure SU E ADRIÁN [facility] Start: 04-16-2024 End: 04-16-2024 ambulatory PA-C SU E ADRIÁN Facility:[facility] Start: 04-16-2024 End: 04-16-2024 Patient encounter procedure SU E ADRIÁN [facility] Start: 03-26-2024 End: 03-26-2024 Office outpatient visit 25 minutes Sera Flower MD Work Phone: [facility] Comment on above: Essential hypertensi on (CMS/HCC) (Primary Dx); Chronic systolic congestive heart failure (CMS/HCC); Coronary artery disease involving algaaciq coronary artery of algaaciq heart without angina pectoris (CMS/HCC); Chronic obstructive pulmonary disease, unspecified COPD type (CMS/HCC); Pure hypercholesterolemia (CMS/HCC); Prediabetes; Elevated PSA; Benign prostatic hyperplasia without urinary obstruction; Bacterial pneumonia; Sinus drainage Start: 03-26-2024 End: 03-26-2024 ambulatory SERA FLOWER Not Available Start: 03-05-2024 ambulatory NUBIA COOK Facility:[facility] Start: 02-27-2024 End: 02-27-2024 Transitional care manage srvc 7 day discharge Sally Ba BANKING ANALYST Work Phone: [facility] Comment on above: Sepsis, due to unspe cified organism, unspecified whether acute organ dysfunction present (CMS/HCC) (Primary Dx); Pneumonia of right middle lobe due to infectious organism; Hyponatremia; Essential hypertension (CMS/HCC); Chronic systolic congestive heart failure (CMS/HCC); Coronary artery disease involving algaaciq coronary artery of algaaciq heart without angina pectoris ([facility]/HCC); Gastroesophageal reflux disease without esophagitis; Benign prostatic [...] 25 minutes Rene Cortez MD Work Phone: [facility] Comment on above: Coronary artery dise ase involving algaaciq coronary artery of algaaciq heart without angina pectoris (Primary Dx); Essential hypertension; Mixed hyperlipidemia; Ischemic cardiomyopathy; Status post coronary artery stent placement; Class 2 obesity with body mass index (BMI) of 35.0 to 35.9 in adult, unspecified obesity type, unspecified whether serious comorbidity present; Former smoker Start: 06-30-2023 End: 06-30-2023 Office outpatient visit 25 minutes Hosea Snyder DO Work Phone: [facility] Comment on above: Acute exacerbation o f chronic obstructive pulmonary disease (CMS/HCC) (Primary Dx) Start: 06-14-2023 End: 06-14-2023 Emergency department patient visit MD Sera Flower Work Phone: [facility]-Emergency Room Work Phone: Start: 03-23-2023 End: 03-23-2023 Office outpatient visit 25 minutes Rene Cortez MD Work Phone: [facility] Comment on above: Coronary artery dise ase involving algaaciq coronary artery of algaaciq heart without angina pectoris; Essential hypertension; Mixed hyperlipidemia; Ischemic cardiomyopathy; Status post coronary artery stent placement; Class 2 obesity with body mass index (BMI) of 35.0 to 35.9 in adult, unspecified obesity type, unspecified whether serious comorbidity present Start: 02-06-2023 Toño Flower Work Phone: [facility] 250 DO Work Phone: Start: 02-05-2023 End: 02-05-2023 ambulatory MD Sera Flower Work Phone: [facility] Work Phone: Start: 02-05-2023 End: 02-05-2023 Patient encounter procedure MD Sera Flower Work Phone: [facility]-Electrodiagnostic s Work Phone: Start: 02-05-[address] Sera Flower Facility:[id number] Start: 01-30-2023 AUDIT Sera Flower Work Phone: [facility] 600 DO Work Phone: Start: 01-15-2023 Other Sera Barbara Flower Work Phone: [facility] 250 DO Work Phone: Start: 01-12-2023 Chart Update Sera Flower Work Phone: [facility] 250 DO Work Phone: Start: 01-04-[address] Sera Flower Facility:[id number] Start: 01-03-[address] Sera Flower Facility:[id number] Start: 11-14-2022 End: 11-14-2022 ambulatory DEANDRA BENDER Facility:[facility] Start: 11-14-2022 End: 11-14-2022 Patient encounter procedure Deandra Bender MD Work Phone: Ophthalmology Comment on above: Clonic hemifacial sp asm, right (Primary Dx) Start: 09-07-2022 Office outpatient vi sit 25 minutes Sera Flower Work Phone: [facility]Tpsccdo y 250 DO Work Phone: Start: 09-07-2022 ambulatory López Cortez Facility : Start: 08-08-2022 End: 08-08-2022 ambulatory DEANDRA BENDER Facility:[facility] Start: 08-08-2022 End: 08-08-2022 Patient encounter procedure Deandra Bender MD Work Phone: Ophthalmology Comment on above: Clonic hemifacial sp asm, right (Primary Dx) Start: 06-21-2022 Telephone encounter Deandra Bender MD Work Phone: [facility] [place] Comment on above: Orders Start: 06-21-2022 End: 06-21-2022 ambulatory DEANDRA BENDER Facility:[facility] Start: 06-21-2022 End: 06-21-2022 Patient encounter procedure Deandra Bender MD Work Phone: Ophthalmology Comment on above: Clonic hemifacial sp asm, right (Primary Dx); Paralytic strabismus; Jada's syndrome Start: 05-01-2022 End: 05-01-2022 ambulatory MAU RANDLE Facility:[facility] Start: 05-01-2022 End: 05-01-2022 Patient encounter procedure Mau Loan Randle OD Work Phone: Ophthalmology Comment on above: Eyelid myokymia (Velma maren Dx); Dry eye syndrome of both eyes; Hyperopia of both eyes with astigmatism and presbyopia Start: 09-05-2021 Office outpatient vi sit 25 minutes Sera Flower Work Phone: [facility] 250 DO Work Phone: Procedures Date Procedure Procedure Detail Performing Clinician Start: 10-17-2024 CL LHC & COR Angio Sagar Flower MD Work Phone: Start: 10-17-2024 Plain chest X-ray Shaka Flower MD Work Phone: Start: 06-23-2024 Cystoscopy John [place] Start: 02-18-2024 GRAM STAIN EVALUATION S fabiola Britt MD Work Phone: Start: 02-18-2024 Leukocytes [#/volume ] in Blood Shaikh Balwinder SHELLEY Work Phone: Start: 02-18-2024 LOWER RESPIRATORY CULTURE Shaikh Balwinder SHELLEY Work Phone: Start: 02-17-2024 BLOOD CULTURE 2 Generic External Data Provider Start: 02-17-2024 BLOOD CULTURE 1 Generic External Data Provider Start: 02-15-2024 BLOOD CULTURE 2 Generic External Data Provider Start: 02-15-2024 BLOOD CULTURE 1 Generic External Data Provider Start: 09-14-2023 Lipid 1996 panel - S taylor or Plasma Rene Cortez MD Work Phone: Start: 06-14-2023 SARS-CoV-2, Influenz a & RSV (PCR) MD Sera Flower Work Phone: Start: 06-14-2023 Plain chest X-ray MD Cristina Flower Work Phone: Start: 03-20-2023 Echocardiography Generi c Provider Scanning Start: 02-13-2023 History of placement of stent for coronary artery disease Status post coronary artery stent placement Rene Cortez MD Work Phone: Start: 11-14-2022 Chemodnrvtj musc mus c innervated facial nrv unil Deandra Bender MD Work Phone: Start: 08-08-2022 Chemodnrvtj musc mus c innervated facial nrv unil Evelia Huffman APRN.SUPER[employer]OR [employer] Work Phone: Start: 07-28-2019 Colonoscopy Hosea andres DO Work Phone: Colonoscope, device (physical object) [...] placement of stent for coronary artery disease History of heart artery stent Sera Flower MD Work Phone: Comment on above: x5 History of placement of stent for coronary artery disease History of heart artery stent Vincenzo Caraballo DO Percutaneous translu vijay coronary angioplasty Sera Flower Work Phone: Placement of stent i n coronary artery Sera Flower Work Phone: Repair of shoulder Sera Flower Work Phone: Plan of Treatment Date Care Activity Detail Author Start: 07-27-2029 Screening for malignant neoplasm of colon [facility] Start: 09-13-2028 Lipid panel Lipid Panel [facility] Start: 08-11-2027 DTaP/Tdap/Td Vaccines (2 - Td or Tdap) DTaP/Tdap/Td Vaccines (2 - Td or Tdap) [facility] Start: 03-30-2025 End: 03-30-2025 Patient encounter procedure 03/30/2025 9:15 AM EST Office Visit [facility] [address] [place] [phone] Sera Flower MD [address] [place] [address] [facility] Start: 03-23-2025 End: 09-19-2025 CBC W Auto Differential panel - Blood CBC and differential Lab Routine Essential hypertension (CMS/HCC) Expected: 03/23/2025 (Approximate), Expires: 09/19/2025 [facility] Work Phone: Comment on above: Expected: 03/23/2025 (Approximate), Expi res: 09/19/2025 Start: 03-23-2025 End: 09-19-2025 Comprehensive metabolic 2000 panel - Serum or Plasma Comprehensive metabolic panel Lab Routine Essential hypertension (CMS/HCC) Expected: 03/23/2025 (Approximate), Expires: 09/19/2025 [facility] Comment on above: Expected: 03/23/2025 (Approximate), Expi res: 09/19/2025 Start: 03-23-2025 End: 09-19-2025 Hemoglobin a1c with eag Hemoglobin a1c with eag Lab Routine Prediabetes Expected: 03/23/2025 (Approximate), Expires: 09/19/2025 [facility] Comment on above: Expected: 03/23/2025 (Approximate), Expi res: 09/19/2025 Start: 03-23-2025 End: 09-19-2025 Lipid 1996 panel - Serum or Plasma Lipid panel Lab Routine Pure hypercholesterolemia (CMS/HCC) Expected: 03/23/2025 (Approximate), Expires: 09/19/2025 [facility] Comment on above: Expected: 03/23/2025 (Approximate), Expi res: 09/19/2025 Start: 03-23-2025 End: 09-19-2025 Microalbumin/Creatinine panel in random Urine Microalbumin / creatinine urine ratio Lab Routine Essential hypertension (CMS/HCC) Expected: 03/23/2025 (Approximate), Expires: 09/19/2025 [facility] Comment on above: Expected: 03/23/2025 (Approximate), Expi res: 09/19/2025 Start: 03-23-2025 End: 09-19-2025 Urinalysis complete panel - Urine Urinalysis with microscopic Lab Routine Essential hypertension (CMS/HCC) Expected: 03/23/2025 (Approximate), Expires: 09/19/2025 [facility] Comment on above: Expected: 03/23/2025 (Approximate), Expi res: 09/19/2025 Start: 01-26-2025 Influenza vaccination Influenza Vaccine (Season Ended) [facility] Start: 01-06-2025 End: 01-06-2025 Patient encounter procedure 01/06/2025 10:20 AM EDT Office Visit [facility] [address] [place] [address] Rene Cortez MD [address] [facility] [address] [place] [address] [facility] Start: 12-15-2024 End: 12-15-2024 Patient encounter procedure 12/15/2024 1:50 PM EDT Office Visit [facility] [address] [place] [address] Rene Cortez MD [address] [facility] [address] [place] [address] [facility] Start: 11-24-2024 End: 10-24-2025 ECG 12 Lead ECG 12 Lead ECG Routine Ischemic cardiomyopathy Expected: 11/24/2024 (Approximate), Expires: 10/24/2025 [facility] Work Phone: Comment on above: Expected: 11/24/2024 (Approximate), Expi res: 10/24/2025 Start: 11-24-2024 End: 10-24-2026 US Heart Transthoracic Transthoracic Echo Limited Echocardiography Routine Ischemic cardiomyopathy Expected: 11/24/2024 (Approximate), Expires: 10/24/2026 [facility] Service Area Work Phone: Comment on above: Expected: 11/24/2024 (Approximate), Expi res: 10/24/2026 Start: 10-31-2024 End: 10-24-2025 Basic metabolic 2000 panel - Serum or Plasma Basic Metabolic Panel Lab Routine Ischemic cardiomyopathy Expected: 10/31/2024 (Approximate), Expires: 10/24/2025 [facility] Work Phone: Comment on above: Expected: 10/31/2024 (Approximate), Expi res: 10/24/2025 Start: 10-18-2024 [facility] Start: 10-16-2024 Referral to master cook [facility] Start: 10-16-2024 Hospital admission [facility] Start: 10-16-2024 [facility] Start: 10-16-2024 Fluoroscopy of Left Heart using Low Osmolar Contrast Fluoroscopy of Left Heart using Low Osmolar Contrast [facility] Start: 10-16-2024 Fluoroscopy of Multiple Coronary Arteries using Low Osmolar Contrast Fluoroscopy of Multiple Coronary Arteries using Low Osmolar Contrast [facility] Start: 10-16-2024 Measurement of Cardiac Sampling and Pressure, Left Heart, Percutaneous Approach Measurement of Cardiac Sampling and Pressure, Left Heart, Percutaneous Approach [facility] Start: 09-24-2024 End: 12-24-2024 Basic metabolic 1998 panel - Serum or Plasma Basic metabolic panel Lab Routine Chronic systolic (congestive) heart failure Expected: 09/24/2024 (Approximate), Expires: 12/24/2024 [facility] Comment on above: Expected: 09/24/2024 (Approximate), Expi res: 12/24/2024 Start: 09-24-2024 End: 09-24-2024 Patient encounter procedure 09/24/2024 1:30 PM EDT Office Visit [facility] [address] [place] [phone] Sally Ba NP [address] [place] [address] [facility] Start: 09-19-2024 Medicare Annual Wellness (AWV) Medicare Annual Wellness (AWV) [facility] Start: 07-17-2024 End: 07-17-2024 Patient encounter procedure 07/17/2024 10:35 AM EST Office Visit [facility] [address] [place] [phone] Marybeth oLng MD [address] [place] [address] Skin lesion of back; Sebaceous cyst [facility] Comment on above: Skin lesion of back; Sebaceous cyst Start: 05-15-2024 End: 05-15-2024 Patient encounter procedure 05/15/2024 9:10 AM EST Office Visit [facility] [address] [facility] [address] [place] [phone] Rene Cortez MD [address] [place] [address] [facility] Start: 04-25-2024 End: 02-26-2025 XR Chest 2 Views XR chest 2 views Imaging Routine Pneumonia of right middle lobe due to infectious organism Expected: 04/25/2024, Expires: 02/26/2025 [facility] Work Phone: Comment on above: Expected: 04/25/2024, Expires: Start: 03-26-2024 End: 03-26-2024 Patient encounter procedure 03/26/2024 1:00 PM EDT Office Visit [facility] [address] [place] [address] Sera Flower MD [address] [place] [address] [facility] Start: 03-20-2024 Echocardiography Echocardiogram [facility] Start: 02-27-2024 End: 02-27-2024 Patient encounter procedure 02/27/2024 10:45 AM EDT Office Visit [facility] [address] [place] [phone] Sally Ba NP [address] [place] [address] [facility] Start: 01-27-2024 COVID-19 Vaccine ( season) COVID-19 Vaccine () [facility] Start: 01-27-2024 Influenza vaccination [facility] Start: 10-18-2023 End: 10-18-2023 Patient encounter procedure 10/18/2023 9:30 AM EDT Office Visit [facility] [address] [place] [address] Rene Cortez MD [address] [place] [address] [facility] Start: 09-20-2023 End: 09-20-2023 Patient encounter procedure 09/20/2023 1:00 PM EDT Office Visit [facility] [address] [place] [phone] Sera Flower MD [address] [place] [address] [facility] Start: 03-23-2023 End: 03-23-2024 Alanine aminotransferase [Enzymatic activity/volume] in Serum or Plasma by With P-5'-P Alanine Aminotransferase Lab Routine Coronary artery disease involving algaaciq coronary artery of algaaciq heart without angina pectoris Essential hypertension Mixed hyperlipidemia Ischemic cardiomyopathy Status post coronary artery stent placement Class 2 obesity with body mass index (BMI) of 35.0 to 35.9 in adult, unspecified obesity type, unspecified whether serious comorbidity present Expected: 03/23/2023 (Approximate), Expires: 03/23/2024 [facility] Work Phone: Comment on above: Expected: 03/23/2023 (Approximate), Expi res: 03/23/2024 Start: 03-23-2023 End: 03-23-2024 Aspartate aminotransferase [Enzymatic activity/volume] in Serum or Plasma by With P-5'-P Aspartate Aminotransferase Lab Routine Coronary artery disease involving algaaciq coronary artery of algaaciq heart without angina pectoris Essential hypertension Mixed hyperlipidemia Ischemic cardiomyopathy Status post coronary artery stent placement Class 2 obesity with body mass index (BMI) of 35.0 to 35.9 in adult, unspecified obesity type, unspecified whether serious comorbidity present Expected: 03/23/2023 (Approximate), Expires: 03/23/2024 [facility] Work Phone: Comment on above: Expected: 03/23/2023 (Approximate), Expi res: 03/23/2024 Start: 03-23-2023 End: 03-23-2024 Basic metabolic 2000 panel - Serum or Plasma Basic Metabolic Panel Lab Routine Coronary artery disease involving algaaciq coronary artery of algaaciq heart without angina pectoris Essential hypertension Mixed hyperlipidemia Ischemic cardiomyopathy Status post coronary artery stent placement Class 2 obesity with body mass index (BMI) of 35.0 to 35.9 in adult, unspecified obesity type, unspecified whether serious comorbidity present Expected: 03/23/2023 (Approximate), Expires: 03/23/2024 [facility] Work Phone: Comment on above: Expected: 03/23/2023 (Approximate), Expi res: 03/23/2024 Start: 03-23-2023 End: 03-23-2024 CBC panel - Blood by Automated count CBC Lab Routine Coronary artery disease involving algaaciq coronary artery of algaaciq heart without angina pectoris Essential hypertension Mixed [...] Panel Lab Routine Coronary artery disease involving algaaciq coronary artery of algaaciq heart without angina pectoris Essential hypertension Mixed hyperlipidemia Ischemic cardiomyopathy Status post coronary artery stent placement Class 2 obesity with body mass index (BMI) of 35.0 to 35.9 in adult, unspecified obesity type, unspecified whether serious comorbidity present Expected: 03/23/2023 (Approximate), Expires: 03/23/2024 [facility] Work Phone: Comment on above: Expected: 03/23/2023 (Approximate), Expi res: 03/23/2024 Start: 03-15-2023 FUV, Provider: Rene Cortez, Status: Pen, Time: 9:20 AM FUV, Provider: Rene Cortez, Status: Pen, Time: 9:20 AM [facility] 250 DO Work Phone: Start: 01-26-2023 COVID-19 Vaccine ( season) COVID-19 Vaccine ( season) [facility] Start: 01-26-2023 Influenza vaccination [facility] Start: 09-07-2022 FUV, Provider: Rene Cortez, Status: Pen, Time: 8:30 AM FUV, Provider: Rene Cortez, Status: Pen, Time: 8:30 AM [facility] 250 DO Work Phone: Start: 08-02-2022 Medicare Annual Wellness Visit Medicare Annual Wellness Visit (AWV) [facility] Start: 05-28-2022 ADVANCE DIRECTIVE DISCUSSION ADVANCE DIRECTIVE DISCUSSION [facility] Start: 05-28-2022 DEPRESSION ASSESSMENT DEPRESSION ASSESSMENT [facility] Start: 01-26-2022 Influenza vaccination INFLUENZA (#1) [facility] Start: 05-28-2021 ADVANCE DIRECTIVE DISCUSSION ADVANCE DIRECTIVE DISCUSSION [facility] Start: 05-28-2021 DEPRESSION ASSESSMENT DEPRESSION ASSESSMENT [facility] Start: 2018 Abdominal aortic aneurysm screening Abdominal Aortic Aneurysm (AAA) Screening [facility] Start: 2018 PNEUMOCOCCAL: 65+ (1 - PCV) PNEUMOCOCCAL: 65+ (1 - PCV) [facility] Start: 02-15-2017 Zoster Vaccines (2 of 3) Zoster Vaccines (2 of 3) [facility] Start: 2013 RSV High Risk: (Elderly (60+) or Population) (1 - Risk 60-74 years 1-dose series) RSV High Risk: (Elderly (60+) or Population) (1 - Risk 60-74 years 1-dose series) [facility] Start: 2013 RSV patients and/or patients aged 60+ years (1 - 1-dose 60+ series) RSV patients and/or patients aged 60+ years (1 - 1-dose 60+ series) [facility] Start: 2003 SHINGRIX VACCINE (1 of 2) SHINGRIX VACCINE (1 of 2) [facility] Start: 1998 COLOGUARD (FIT-DNA) COLOGUARD (FIT-DNA) [facility] Start: 1998 Colonoscopy COLONOSCOPY [facility] Start: 1998 COLORECTAL CANCER SCREENING COLORECTAL CANCER SCREENING [facility] Start: [address] COLONOGRAPHY [facility] Start: 1998 DIABETES SCREEN DIABETES SCREEN [facility] Start: 1998 FECAL OCCULT BLOOD FECAL OCCULT BLOOD [facility] Start: 1998 SIGMOIDOSCOPY SIGMOIDOSCOPY [facility] Start: 01-02-1988 LIPID SCREEN LIPID SCREEN [facility] Start: 01-02-1972 Urine microalbumin profile DTAP,TDAP,TD (1 - Tdap) [facility] Start: 1971 Diabetes mellitus screening Diabetes Screening [facility] Start: 1971 HEPATITIS C SCREENING HEPATITIS C SCREENING [facility] Start: 1971 Hepatitis C screening Hepatitis C Screening [facility] Start: 1953 COVID-19 VACCINE (#1) COVID-19 VACCINE (#1) [facility] Start: 1953 Creatinine measurement Creatinine Level [facility] Start: 1953 Lipid panel Lipid Panel [facility] Start: 1953 Medicare Annual Wellness Visit Medicare Annual Wellness Visit (AWV) [facility] Start: 1953 Potassium measurement Potassium Level [facility] Start: 1953 Screening for malignant neoplasm of colon [facility] Basic metabolic 1998 panel - Serum or Plasma Basic metabolic panel Lab Routine Hyponatremia Essential hypertension (CMS/HCC) Ordered: 02/27/2024 [facility] Comment on above: Ordered: 02/27/2024 BLOOD CULTURE 1 BLOOD CULTURE 1 Lab Routine 02/15/2024 4:07 PM EDT [facility] BLOOD CULTURE 1 BLOOD CULTURE 1 Lab Routine 02/17/2024 10:40 AM EDT [facility] BLOOD CULTURE 2 BLOOD CULTURE 2 Lab Routine 02/15/2024 4:14 PM EDT [facility] BLOOD CULTURE 2 BLOOD CULTURE 2 Lab Routine 02/17/2024 11:00 AM EDT [facility] LOWER RESPIRATORY CULTURE LOWER RESPIRATORY CULTURE Lab Routine 02/18/2024 7:25 AM EDT [facility] Work Phone: End: 07-21-2023 Mri brain brain stem w/o w/contrast material MRI BRAIN WO/W IVCON Radiology Routine Paralytic strabismus 1 Occurrences starting 06/21/2022 until 07/21/2023 [facility] Work Phone: Comment on above: 1 Occurrences starting 06/21/2022 until 07/21/2023 End: 07-21-2023 Mri orbit face & neck w/o & w/contrast matrl MRI SOFT TISSUE NECK WO/W IVCON Radiology Routine 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 until 07/21/2023 [facility] Work Phone: Comment on above: 1 Occurrences starting 06/21/2022 until 07/21/2023 Patient Education [facility] Work Phone: Patient referral [facility] Work Phone: PSA, total and free PSA, total a nd free Lab Routine Benign prostatic hyperplasia without urinary obstruction Ordered: 02/27/2024 [facility] Work Phone: Comment on above: Ordered: 02/27/2024 [facility] Immunizations Immunization Date Immunization Notes Care Provider Fa loraine 04-16-2019 Seasonal trivalent influenza vaccine, adjuvanted, preservative free Sera Barbara Ching Work Phone: [place] [address] DO Work Phone: 04-16-2019 influenza virus vacc ine, unspecified formulation Rene Cortez MD Work Phone: [facility] 03-28-2019 influenza virus vacc ine, unspecified formulation Sera Flower Work Phone: [place] [address] DO Work Phone: 08-16-2018 influenza virus vacc ine, unspecified formulation John EMILE [facility] 08-16-2018 influenza, injectabl e, quadrivalent, preservative free Kiya Richmond CHIEF [employer] Work Phone: [facility] Work Phone: 08-16-2018 influenza, seasonal, injectable, preservative free Sera Barbara Ching Work Phone: [place] [address] DO Work Phone: 08-16-2018 pneumococcal conjuga te vaccine, 13 valent Sera Barbara Ching Work Phone: [place] [address] DO Work Phone: 05-28-2018 pneumococcal polysaccharide vaccine, 23 valent Sera Barbara Ching Work Phone: [place] [address] DO Work Phone: 08-10-2017 tetanus toxoid, redu daniel diphtheria toxoid, and acellular pertussis vaccine, adsorbed Sera Barbara Ching Work Phone: [place] [address] DO Work Phone: 05-15-2017 influenza, injectabl e, quadrivalent, preservative free Kiya Richmond [employer]IE[employer] Work Phone: [facility] Work Phone: 12-21-2016 zoster vaccine, live Sera Flower Work Phone: [facility] 250 DO Work Phone: 04-28-2016 influenza, seasonal, injectable, preservative free Kiya Richmond [employer]IE[employer] Work Phone: [facility] Work Phone: 03-05-2015 influenza, seasonal, injectable, preservative free Kiya Richmond [employer]IE[employer] Work Phone: [facility] Work Phone: 03-10-2014 influenza, seasonal, injectable, preservative free Kiya Richmond [employer] Work Phone: [facility] Work Phone: 03-24-2013 influenza virus vacc ine, unspecified formulation Kiya Richmond [employer]IEF [employer] Work Phone: [facility] Work Phone: 09-30-2012 pneumococcal polysaccharide vaccine, 23 valent Sera Flower Work Phone: [facility] 250 DO Work Phone: 09-30-2012 pneumococcal vaccine , unspecified formulation Hosea Snyder DO Work Phone: [facility] 05-06-2012 influenza virus vacc ine, unspecified formulation Kiya Richmond [employer]IE[employer] Work Phone: [facility] Work Phone: 03-03-2011 influenza virus vacc ine, unspecified formulation Kiya Richmond [employer]IEF [employer] Work Phone: [facility] Work Phone: 05-28-2010 influenza virus vacc ine, unspecified formulation Rene Cortez MD Work Phone: [facility] Work Phone: 03-31-2010 influenza virus vacc ine, unspecified formulation Kiya Richmond [employer]IE[employer] Work Phone: [facility] Work Phone: 03-28-2010 influenza, seasonal, injectable, preservative free Rene Cortez MD Work Phone: [facility] Work Phone: 2007 TD(adult) unspecifie d formulation; Translations: [Td(adult) unspecified formulation] Hosea Snyder DO Work Phone: [facility] 2007 tetanus toxoid, unspecified formulation Kiya Basilio [employer]IE[employer] Work Phone: [facility] Work Phone: influenza virus vacc ine, unspecified formulation Sera Flower Work Phone: [facility] 250 DO Work Phone: Comment on above: Mar 20102010 Payers Date Payer Category Payer [employer]) [id number] 2024 [employer] others) [id number] 2024 Self-pay [id number] 2023 Private Health Insurance [id number] 2023 () [id number] 2022 [employer] ( and others) [id number]. 3.6786 [id number] 2022 Medicare (Managed Care) 1.2. [id number] 2022 For Life (TFL) 1.2.8 [id number] 2022 [employer] ( [employer] others) [id number] 2022 Medicare [id number] 2021 [employer] ( [employer] others) [id number] 2021 Unknown 2017 Medicare [id number] 71.315 2017 Medicare [id number] 1953 Unknown [id number] 2.16.840.1.303518.3.579.2.356 1953 Unknown [id number] 2.16.840.1.958079.3.579.2.356 1953 Unknown [id number] 2.16.840.1.093337.3.579.2.1068 1953 Unknown [id number] 2.16.840.1.536507.3.579.2.1068 1953 Unknown [id number] 2.16.840.1.305414.3.579.2.1259 1953 Unknown [id number] 2.16.840.1.393595.3.579.2.1259 1953 Unknown [id number] 2.16.840.1.963676.3.579.2.1259 1953 Unknown [id number] 2.16.840.1.238910.3.579.2.1259 1953 Unknown [id number] 2.16.840.1.483997.3.579.2.1259 1953 Unknown [id number] 2.16.840.1.997702.3.579.2.1259 1953 Unknown [id number] 2.16.840.1.409109.3.579.2.1259 1953 Unknown [id number] 2.16.840.1.398919.3.579.2.1244 1953 Unknown [id number] 2.16.840.1.398094.3.579.2.1244 1953 Unknown [id number] 2.16.840.1.766485.3.579.2.727 1953 Unknown [id number] 2.16.840.1.702155.3.579.2.727 1953 Unknown [id number] 2.16.840.1.358889.3.579.2.727 1953 Unknown [id number] 2.16.840.1.673971.3.579.2.727 1953 Unknown [id number] 2.16.840.1.789541.3.579.2.727 1953 Unknown [id number] 2.16.840.1.591222.3.579.2.727 1953 Unknown [id number] 2.16.840.1.422041.3.579.2.727 1953 Unknown [id number] 2.16.840.1.443637.3.579.2.727 1953 Unknown [id number] 2.16.840.1.760704.3.579.2.727 1953 Unknown [id number] 2.16.840.1.710301.3.579.2.727 1953 Unknown [id number] 2.16.840.1.247893.3.579.2.727 1953 Unknown [id number] 2.16.840.1.913425.3.579.2.727 Unknown [id number] 2.16.840.1.165635.3.579.2.531 Unknown [id number] 2.16.840.1.497988.3.579.2.531 Unknown [id number] 2.16.840.1.927296.3.579.2.531 Social History Date Type Detail Facility Start: 03-23-2023 End: 10-24-2024 No alcohol use No alcohol use [facility] Comment on above: 5 CUPS OF COFFEE ANICETO LY; QUIT IN 1984; Start: 05-01-2022 End: 06-14-2023 Tobacco smoking status [facility] Never smoked tobacco [facility] Start: 05-01-2022 End: 10-18-2023 Tobacco use and exposure Smokeless tobacco non-user [facility] Start: 05-01-2022 End: 11-14-2022 Alcohol intake Ex-drinker (finding) [facility] Start: 1955 Sex Assigned At Not on file [facility] Start: 10-15-2020 End: 12-02-2024 Tobacco smoking status NVIS Ex-smoker (finding) [facility] Start: 1955 Sex Assigned At Male F [facility] End: 05-28-1992 History of tobacco use Current smoker [facility] Work Phone: End: 05-28-1992 History of tobacco use Cigarette Smoker [facility] Work Phone: Start: 03-23-2023 End: 10-24-2024 Alcohol intake Lifetime non-drinker (finding) [facility] Work Phone: Start: 03-23-2023 End: 10-24-2024 Tobacco use panel [facility] Start: 03-13-2023 End: 10-24-2024 Exposure to SARS-CoV-2 (event) Not sure [facility] Start: 03-14-2023 Alcohol Comment caffeine: coff ee 5-6 cups a day [facility] Start: 11-13-2022 Gender identity Identifies as male gender (finding) [facility] Tobacco smoking status Never [facility] Start: 10-18-2024 End: 11-01-2024 Sex Male (finding) [facility] Start: 10-17-2024 SDOH Follow up SDOH Follow up [facility] Work Phone: Sexual Orientation [facility] Goals Date Patient Goal Desired Activity /State Functional Status Date Assessment Result Facility 10-18-2024 Functional status Patient at Baseline [facility] Work Phone: 09-24-2024 Patient Health Quest ionnaire 2 item (PHQ-2) [Reported] [facility] 08-08-2024 Functional Status N/A [facility] 06-23-2024 Functional Status N/A [facility] 04-28-2024 Functional Status N/A [facility] 04-16-2024 Functional Status N/A [facility] Mental Status Date Assessment Result Facility 10-18-2024 Cognitive function Cognitive Sta tus Patient at Baseline [facility] Work Phone: Clinical Notes 05-01-2022 to 12-09-2024 Kiya Richmond APRN-[employer] - 10/24/2024 10:00 AM EDTPatient Instructions Note Date & Type Note Facility 12-09-2024 Note [facility] Cardiology Clinic Note Chief Complaint: Establish [...] medical history of CHF (congestive heart failure) ([facility]), COPD (chronic obstructive pulmonary disease) ([facility]), Coronary artery disease, GERD (gastroesophageal reflux disease), [...] for this visit: Coronary artery disease involving algaaciq coronary artery of algaaciq heart without angina pectoris (Primary) Comments: S/p PCI to LAD and mid/distal RCA 2009. Recent coronary angiogram September/2024 revealed patent the stent with totally occluded ramus and PLV branch of RCA Orders: - metoprolol succinate XL (Toprol-XL) 25 mg 24 hr tablet; Take 0.5 tablets (12.5 mg) by mouth once daily as directed. Do not crush or chew. (more content not included)... [facility] 12-02-2024 Hospital Discharge instructions Patient Education 12/02/2024 08:24:12 Benign Prostatic Hyperplasia Benign Prostatic Hyperplasia Benign [...] urethra. Follow these instructions at home: Take gdvt-qyn-xqkdjla and prescription medicines only as told by [...] provider. Document Revised: 11/30/2021 Document Reviewed: 11/30/2021 [employer] Patient Education 2023 [employer]. Follow Up Care 08/26/2024 08:43:50 With:EMILE SHELLEY, John Hauser, URL Address: [facility] [place] [id number]- When: Unknown Comments:6 mos w/ PSA and PVR [facility] [place] 12-02-2024 Note Patient Education Urology Benign Prostatic Hyperplasia [...] Follow these instructions at home: ??? Take auvt-elg-jafjsvb and prescription medicines only as told by [...] do not get (more content not included)... [facility] 10-24-2024 History of Present illness Narrative Chief Complaint I was told I need to get a defibrillator put in Reason for Visit Patient presents to the office today for outpatient follow-up for hospital follow up. Last evaluated in clinic by Dr. Cortez Apr 2024. Presents today ambulatory with steady gait; utilizing oxygen since recent discharge Accompanied by spouse History of Present Illness Patient and report a fairly complicated medical course over the last 6 months including: Multiple ER and urgent care evaluations due to coughing, increased shortness of breath with exertion and edema. September 2024 had a 7-day hospitalization at [facility] due to pneumonia, sepsis. Although I do not have a report, there is documentation that echo showed LVEF of 25% with global hypokinesis. Believe he was treated for acute decompensated heart failure. He was then transferred to [facility] and seen by Dr. Davis. A August 17, 2024 cardiac cath showed a patent LAD and diagonal stenting, ramus occluded, mid/distal RCA patent stent, PLV occluded. LVEF 20%. At time of discharge she was to be placed on Entresto, Aldactone, Farxiga and increased dose carvedilol, Lasix. reports that he was only home for approximately 4 hours and he returned back to [facility] as of breath, he was hospitalized for 4 days treated with a different antibiotics, respiratory treatments and steroids. Patient presents to the office today where he has been home approximately 72 hours. Due to hypotension yesterday with a blood pressure 86/67 they called their PCP and were told not to take any blood pressure medications, he has not had any medications today. He presents to the office today where he feels great now . He reports last night he was able to walk up 1 flight of stairs to his bedroom without any concerns, had not been able to do that in a long time. His weight is down approximately 16 pounds from time of admit. He has tried to go outside walking yesterday. When his blood pressure was low he felt a little sluggish . Denies any type of orthopnea or PND. His right radial cath site is healed without adverse sequela. Added onto my schedule today for hospital follow-up to schedule defibrillator implant. I had a lengthy discussion with the patient and regarding optimal guideline directed medical therapy. Some of his symptoms prior to hospitalization do sound consistent with acute decompensated heart failure; he was also acutely ill at time of echo showing LVEF 20%. I will adjust guideline directed medical therapy so that can get all 4 treatments on board -repeat limited ultrasound in 30 days to see if there is any improvement. He will follow-up with Dr. Cortez closely thereafter and ICD can be arranged if warranted. Reviewing concomitant medication he presents today off of Zetia and Crestor. He reports he self discontinued these because they made him feel sluggish -he can discuss this with Dr. Cortez at follow-up. Otherwise he also stopped his aspirin 81 mg but due to history of CAD he does agree to resume. Review of Systems Cardiovascular: Negative for chest pain, dyspnea on exertion, irregular heartbeat, leg swelling, near-syncope, orthopnea, palpitations, paroxysmal nocturnal dyspnea and syncope. Visit Vitals BP 102/68 (BP Location: Left arm, Patient Position: Sitting) Pulse 84 Ht 1.727 m (5' 8 ) Wt 101 kg (222 lb 6.4 oz) BMI 33.82 kg/m Smoking Status Former BSA 2.2 m Physical Exam Vitals and nursing note reviewed. Constitutional: Appearance: Normal appearance. Cardiovascular: Rate and Rhythm: Normal rate and regular rhythm. Heart sounds: Murmur heard. Systolic murmur is present with a grade of 1/6. Pulmonary: Effort: Pulmonary effort is normal. Breath sounds: Examination of the right-lower field reveals decreased breath sounds. Examination of the left-lower field reveals decreased breath sounds. Decreased breath sounds present. Musculoskeletal: Cervical back: Full passive range of motion without pain. Right lower leg: No edema. Left lower leg: No edema. Skin: General: Skin is cool. Neurological: Mental Status: He is alert and oriented to person, place, and time. Psychiatric: Attention and Perception: Attention normal. Mood and Affect: Mood normal. Behavior: Behavior is cooperative. ALLERGIES: Codeine Current Outpatient Medications Medication Instructions aspirin 81 mg, oral, Daily benzonatate (TESSALON) 200 mg, 3 times daily PRN carvedilol (COREG) 3.125 mg, oral, 2 times daily (morning and late afternoon) cetirizine (ZYRTEC) 10 mg, Daily cholecalciferol (VITAMIN D-3) 50 mcg, Daily dapagliflozin propanediol (FARXIGA) 10 mg, Every 24 hours fluconazole (DIFLUCAN) 100 mg, Daily fluticasone propion-salmeteroL (Advair HFA) 230-21 mcg/actuation inhaler 2 puffs, 2 times daily RT furosemide (LASIX) 40 mg, Daily PRN levoFLOXacin (LEVAQUIN) 750 mg, Daily magnesium oxide (MAG-OX) 250 mg, Daily montelukast (SINGULAIR) 10 mg, Nightly multivitamin (MULTIPLE VITAMINS ORAL) 1 tablet, Daily nitroglycerin (NITROSTAT) 0.4 mg, sublingual, Every 5 min PRN, May repeat dose every 5 minutes for up to 3 doses total. nystatin (MYCOSTATIN) 500,000 Units, 4 times daily omega-3 fatty acids-fish oil (One-Per-Day Monitor-3) 684-1,200 mg capsule Take as directed omeprazole (PRILOSEC) 20 mg, Daily RT predniSONE (DELTASONE) 10 mg, Daily sacubitriL-valsartan (Entresto) 24-26 mg tablet 1 tablet, 2 times daily spironolactone (ALDACTONE) 12.5 mg, oral, Daily tamsulosin (FLOMAX) 0.8 mg, Daily RT zinc gluconate 30 mg tablet 1 tablet, Daily Assessment: Recent decline in LVEF 20% September 2024 cardiac cath & reported 25% with global hypokinesis at [facility] (no reports). Prior February 2023 TTE with LVEF 45% with inferior lateral hypokinesis. Currently FC 2b Stage C following recent hospitalization pneumonia/ADHF. Unknown QRS will get ECG at follow up with Dr. Cortez. GDMT: Held recently due to symptomatic hypotension. Doses adjusted today and provided with farxiga samples (PCP working on insurance) 2. October 17, 2024 cardiac catheterization: LAD and diagonal patent stents, ramus occluded, mid/distal RCA patent stenting, PLV occluded. Multivessel PCI 2009. Plan: Medications: Reduce coreg 3.125mg twice a day (replace the 12.5mg tablets) Entresto 24/26mg twice a day (if you have trouble with blood pressure dropping after taking you should separate dose of entresto and coreg by 2 hours) Spironolactone 12.5mg daily (half tablet) Farxiga 10mg daily (samples) Lasix - please change to as needed for weight gain 3 pounds over night or 5 pounds over the week; leg swelling Please resume ASA 81mg daily You can discuss zetia and crestor when you see Dr. Cortez :-) Repeat echocardiogram in 1 month Labs (chem6) in one week Dr. Cortez after the echo (to see if defibrillator is needed) with ECG on day of office visit Kiya Richmond MSN, [employer]IEF [employer], PMHNP-[facility] [place], [place] Please excuse any errors in grammar or translation related to this dictation. Voice recognition software was utilized to prepare this document. documented in this encounter [facility] Work Phone: 10-24-2024 Instructions NABIL Garcia - 10/24/2024 10:00 AM EDT Please bring all medicines, vitamins, and herbal supplements with you when you come to the office. Prescriptions will not be filled unless you are compliant with your follow up appointments or have a follow up appointment scheduled as per instruction of your physician. Refills should be requested at the time of your visit. Medications: Reduce coreg 3.125mg twice a day (replace the 12.5mg tablets) Entresto 24/26mg twice a day (if you have trouble with blood pressure dropping after taking you should separate dose of entresto and coreg by 2 hours) Spironolactone 12.5mg daily (half tablet) Farxiga 10mg daily (samples) Lasix - please change to as needed for weight gain 3 pounds over night or 5 pounds over the week; leg swelling Please resume ASA 81mg daily You can discuss zetia and crestor when you see Dr. Cortez :-) Repeat echocardiogram in 1 month Labs (chem6) in one week Dr. Cortez after the echo (to see if defibrillator is needed) with ECG on day of office visit documented in this encounter [facility] Work Phone: 10-18-2024 Progress note Note Date/Time October 18, 2024 1:53pm [facility] EN[facility] [address] [place] [address] Cardiology Progress Note Signed Patient: Demarcus Calderon MR#: [id number] : 1955 Acct:[id number] Age/Sex: 69 / M Adm Date: 5 Loc: 4 Room: [address] [place] [address] Type: ADM IN Attending Dr: Vincenzo Caraballo DO Copies to: ~ Date of Service: 10/18/2024 Subjective Interval history: Patient feels better. No chest pain. Results of heart cath reviewed with him Exam Physical Exam Vital Signs: Temp Pulse Resp BP Pulse Ox O2 Del Method O2 Flow Rate 97.9 F 75 17 100/65 94 L Room Air 2 10/18/24 12:00 10/18/24 12:00 10/18/24 12:00 10/18/24 12:00 10/18/24 12:00 10/18/24 12:00 10/18/24 09:00 Const General: cooperative Neck Neck: supple Lymphatic: no lymphadenopathy noted Resp Effort & Inspection: normal respiratory effort Auscultation: clear to auscultation bilaterally Cardio Palpation: normal PMI Rate: regular rate Rhythm: regular rhythm Heart Sounds: S1 normal and S2 normal Skin General: dry skin Extrem General: full ROM and no clubbing, cyanosis or edema Objective Labs 10/18/24 09:07 10/18/24 09:07 Labs: Laboratory Results - last 24 hr 10/18/24 09:07 Corrected WBC 11.5 H RBC 5.20 Hgb 14.9 Hct 43.5 MCV 83.8 MCH 28.7 MCHC 34.2 RDW 15.8 H Plt Count 194 MPV 8.0 PHA Creatinine Clear 96.55 Sodium 129 L Potassium 4.0 Chloride 98 Carbon Dioxide 22.4 Anion Gap 12.6 BUN 20 Creatinine 0.76 Est GFR (CKD-EPI) > 60.0 Glucose 124 H Calcium 8.4 L Magnesium 2.3 A&P - Cardiology (1) Acute hypoxic respiratory failure: Code(s): J96.01 - Acute respiratory failure with hypoxia (2) Community acquired pneumonia: Code(s): J18.9 - Pneumonia, unspecified organism (3) Acute on chronic systolic (congestive) heart failure: Code(s): I50.23 - Acute on chronic systolic (congestive) heart failure (4) History of heart artery stent: Code(s): Z95.5 - Presence of coronary angioplasty implant and graft (5) ASHD (arteriosclerotic heart disease): Code(s): I25.10 - Atherosclerotic heart disease of algaaciq coronary artery without angina pectoris Plan 1. Result of heart cath noted and reviewed with patient 2. Gradually uptitrate guideline directed therapy for heart failure and consideration for outpatient AICD 3. Patient can be discharged home Documented By: Charito Rodriguez MD 10/18/24 1352 Signed By: <Electronically signed by MD Charito Rodriguez> 10/18/24 7240 [facility] Work Phone: 1(666) 773-319405-24-2025 [place] [id number] Cardiology Progress Note Signed Patient: Demarcus Calderon MR#: [id number] : 1955 Acct:[id number] Age/Sex: 69 / M Adm Date: 5 Loc: Room: [address] [place] [address] Type: ADM IN Attending Dr: Vincenzo Caraballo DO Copies to: ~ Date of Service: 10/18/2024 Subjective Interval history: Patient feels better. No chest pain. Results of heart cath reviewed with him Exam Physical Exam Vital Signs: Temp Pulse Resp BP Pulse Ox O2 Del Method O2 Flow Rate 97.9 F 75 17 100/65 94 L Room Air 2 10/18/24 12:00 10/18/24 12:00 10/18/24 12:00 10/18/24 12:00 10/18/24 12:00 10/18/24 12:00 10/18/24 09:00 Const General: cooperative Neck Neck: supple Lymphatic: no lymphadenopathy noted Resp Effort & Inspection: normal respiratory effort Auscultation: clear to auscultation bilaterally Cardio Palpation: normal PMI Rate: regular rate Rhythm: regular rhythm Heart Sounds: S1 normal and S2 normal Skin General: dry skin Extrem General: full ROM and no clubbing, cyanosis or edema Objective Labs 10/18/24 09:07 10/18/24 09:07 Labs: Laboratory Results - last 24 hr 10/18/24 09:07 Corrected WBC 11.5 H RBC 5.20 Hgb 14.9 Hct 43.5 MCV 83.8 MCH 28.7 MCHC 34.2 RDW 15.8 H Plt Count 194 MPV 8.0 PHA Creatinine Clear 96.55 Sodium 129 L Potassium 4.0 Chloride 98 Carbon Dioxide 22.4 Anion Gap 12.6 BUN 20 Creatinine 0.76 Est GFR (CKD-EPI) > 60.0 Glucose 124 H Calcium 8.4 L Magnesium 2.3 A&P - Cardiology (1) Acute hypoxic respiratory failure: Code(s): J96.01 - Acute respiratory failure with hypoxia (2) Community acquired pneumonia: Code(s): J18.9 - Pneumonia, unspecified organism (3) Acute on chronic systolic (congestive) heart failure: Code(s): I50.23 - Acute on chronic systolic (congestive) heart failure (4) History of heart artery stent: Code(s): Z95.5 - Presence of coronary angioplasty implant and graft (5) ASHD (arteriosclerotic heart disease): Code(s): I25.10 - Atherosclerotic heart disease of algaaciq coronary artery without angina pectoris Plan 1. Result of heart cath noted and reviewed with patient 2. Gradually uptitrate guideline directed therapy for heart failure and consideration for outpatient AICD 3. Patient can be discharged home Documented By: Charito Rodriguez MD 10/18/24 1352 Signed By: 10/18/24 [facility]05-23-2025 Progress note Author Vincenzo Caraballo [facility] Note Date/Time October 17, 2024 3:24p m [facility] EN[facility] [address] [place] [address] Hospitalist Progress Note Signed Patient: Demarcus Calderon MR#: [id number] : 1955 Acct:[id number] Age/Sex: 69 / M Adm Date: 5 Loc: Room: 8L5214-1 Type: ADM IN Attending Dr: Vincenzo Caraballo DO Copies to: ~ Date of Service: 10/17/2024 Subjective Subjective Narrative: Seen and evaluated this morning, is present at bedside. Was initially reviewing his hospitalization from [facility] when unfortunately I was called out of the room by an insurance [employer] for a peer to peer. During this time I was told he was having increasing oxygen requirements and was unable to lay flat, stat chest x-ray was obtained which will be discussed in the assessment and plan. Patient is reevaluated in the afternoon, he is currently breathing comfortably after he has received his breathing treatments. His chest x-ray was reviewed with him at bedside this far as results ago, I did lay the patient flat and he was having no issues with shortness of breath while laying flat at all. He is currently having a good response to the Lasix. He denies any further coughing after he was received his breathing treatment. Exam Physical Exam Vital Signs: Temp Pulse Resp BP Pulse Ox O2 Del Method O2 Flow Rate 98.0 F 77 20 124/74 95 Nasal Cannula 3 10/17/24 12:00 10/17/24 13:24 10/17/24 13:24 10/17/24 12:00 10/17/24 12:00 10/17/24 12:00 10/17/24 12:00 Narrative: General: Awake alert, no acute distress HEENT: head atraumatic, normocephalic, moist mucous membranes Neck: supple no masses, no lymphadenopathy CVS: regular rate and rhythm, no murmurs or gallops Respiratory: clear to auscultation bilaterally, no wheezing or crackles, symmetric expansion GI: soft, nondistended, nontender, positive bowel sounds with no organomegaly Extremity: moves all extremities, no restrictions of movements, no calf tenderness, no edema Neuro: AOx3, CN II-VII intact. Moves all extremities in all planes of motion. Skin: dry, intact no rashes or lesions Objective Lab Results 10/17/24 05:00 10/17/24 05:00 Meds Allergies and Active Meds Allergies codeine Allergy (Verified 06/14/23 11:40) Hallucinating Active Meds: Active Medications Generic Name Dose Route Start Last Admin Trade Name Nunoq PRN Reason Stop Dose Admin Acetaminophen 1,000 mg 10/16/24 21:48 Acetaminophen 500 Mg Tablet PO 10/16/25 21:47 Q6HR PRN Pain Scale 1 - 3 or fever Albuterol 2 puff 10/17/24 03:16 10/17/24 07:38 Albuterol Hfa 60 Puff/8 Gram Inhaler INHALATION 10/17/25 03:15 2 puff Q6HR PRN Administration shortness of breath or wheezing Albuterol/Ipratropium 3 ml 10/17/24 03:16 Ipratropium/Albuterol 0.5-3 Mg 3 Ml Ampul.Neb INHALATION 10/17/25 03:15 Q6HR PRN shortness of breath or wheezing Albuterol/Ipratropium 3 ml 10/17/24 12:00 10/17/24 13:23 Ipratropium/Albuterol 0.5-3 Mg 3 Ml Ampul.Neb INHALATION 10/17/25 11:59 3 ml QID.RESP KARIN Administration Albuterol/Ipratropium 3 ml 10/17/24 14:19 Ipratropium/Albuterol 0.5-3 Mg 3 Ml Ampul.Neb INHALATION 10/17/25 14:18 ONCE PRN Prior to Heart Cath Benzonatate 200 mg 10/16/24 23:32 10/16/24 23:41 Benzonatate 100 Mg Capsule PO 10/16/25 23:31 200 mg TID PRN Administration Cough Budesonide/Formoterol Fumarate 2 puff 10/17/24 10:30 10/17/24 13:22 Budesonide/Formoterol 160-4.5 Mcg 60 Puff/6 Gm Hfa.Aer.Ad INHALATION 10/17/25 10:29 Not Given BID KARIN Carvedilol 12.5 mg 10/17/24 08:00 10/17/24 08:05 Carvedilol 12.5 Mg Tablet PO 10/17/25 07:59 12.5 mg BID.WITH.MEALS KARIN Administration Fluticasone Propionate 2 spray 10/17/24 09:00 10/17/24 10:26 Fluticasone Propionate [place] 120 [place]/16 Gm Bottle INTRANASAL 10/17/25 08:59 Not Given DAILY KARIN Furosemide 40 mg 10/18/24 08:00 Furosemide 40 Mg/4 Ml Vial IV-PUSH 10/18/25 07:59 DAILY.8A KARIN Loratadine 10 mg 10/17/24 09:00 10/17/24 08:06 Loratadine 10 Mg Tablet PO 10/17/25 08:59 10 mg DAILY KARIN Administration Miscellaneous Information 1 each 10/17/24 10:32 Consult To Pharmacy MISCELLANE 10/17/25 10:31 .PHACONSULT PRN CEDRIC.Pharmacy Consult Protocol Pantoprazole Sodium 40 mg 10/17/24 09:00 10/17/24 08:06 Pantoprazole 40 Mg Tablet. PO 10/17/25 08:59 40 mg DAILY KARIN Administration Potassium Chloride 40 meq 10/21/24 07:00 Potassium Chloride Er 20 Meq Tab.Er.Prt PO STAT PRN Hypokalemia Sodium Chloride 0 ml 10/16/24 22:00 10/17/24 05:59 Sodium Chloride 0.9 % 10 Ml Syringe IV-PUSH 10/16/25 21:59 Not Given QSHIFT KARIN Sodium Chloride 0 ml 10/17/24 10:32 Sodium Chloride 0.9 % 10 Ml Syringe IV-PUSH 10/17/25 10:31 PRN PRN Flush Tamsulosin HCl 0.8 mg 10/17/24 22:00 Tamsulosin 0.4 Mg Cap.Er.24h PO 10/17/25 21:59 QHS KARIN A&P - Hospitalist Assessment/Plan (1) Acute on chronic systolic (congestive) heart failure: Plan: ? Continue diuresis which was started at [facility] ? Lasix 40 m IV push twice daily ? Daily weights ? Strict I's and O's ? Patient was transferred here from [facility] for cardiology valuation ? Echocardiogram at [facility] shows ejection fraction of 25% ? Maintain n.p.o. ? Pending left heart cath later on today (2) Community acquired pneumonia: Plan: He has received full treatment at outside facility (3) Acute hypoxic respiratory failure: Plan: ? Secondary to CHF Plan Acute on chronic systolic heart failure?current EF 25%, global hypokinesis ? Consult cardiology ? Daily weights, strict I&O Community acquired pneumonia- has received 7 days of antibiotics at [facility], - Will defer antibiotics for now Acute hypoxic respiratory failure- likely due to CHF - Continue oxygen as needed, keep Spo2 > 90% Chronic conditions COPD HTN CAD HLD DVT PPx?SCDs Diet order?heart healthy, n.p.o. midnight CODE STATUS?full code Documented By: Vincenzo Caraballo DO 10/17/24 1521 Signed By: <Electronically signed by Vincenzo Caraballo DO> 10/17/24 1524 [facility] Work Phone: 1(152) 375-205005-23-2025 [place] [address] Cardiac Catheterization Note Signed Patient: Demarcus Calderon MR#: [id number] : 1955 Acct:[id number] Age/Sex: 69 / M Adm Date: 5 Loc: Room: [address] [place] [address] Type: ADM IN Attending Dr: Vincenzo Caraballo DO Copies to: MD Vincenzo Sam DO W Scott Sheldon, DO~ Cardiac Catheterization (Left) DATE/PROVIDER 10/17/2024 Keila Davis DO INDICATION 1. Acute decompensated left-ventricular systolic heart failure 2. Recent episode of acute respiratory failure/pneumonia 3. Ischemic cardiomyopathy with prior history of TX, two-vessel revascularizations of LAD/diagonal and distal RCA 2009 4. Former tobacco use 5. Current secondhand smoke exposure 6. Chronic asthmatic bronchitis/COPD PRE PROCEDURE Frailty Scale: Vulnerable ASA Classification: 5 Mallampati Score: Class I POST PROCEDURE Cardiology Post-Op Diagnosis: Other (Widely patent LAD stents and diagonal branch, occluded ramus branch, widely patent mid to distal RCA stents, occluded PLV branch, severe LV dysfunction ejection fraction 20%) PROCEDURE PROCEDURE MEDICATIONS: Conscious sedation with Versed and fentanyl; heparin 4000 unit bolus, intra- arterial nicardipine Approach: Radial - Rt Left heart catheterization PROCEDURE DETAILS Utilizing the right radial approach with a single arterial puncture technique, a5 Italian slender sheath was introduced to the right radial artery over guidewirewithout any complications. Next, preformed 5 Italian JL 3.5 and JR4 diagnostic catheters were utilized to selectively engage and image the left and right coronary arteries and left ventricle, all with interpretation, pressure measurements, coronary and left ventriculography. HEMOSTASIS Quick clot with radial band SUMMARY OF FINDINGS CCS Classification: No symptoms (No angina, severe reduction in LV function) Dominance: Right Left Main %: 0 LAD-Prox % Stenosis: 10 LAD-Prox: Widely patent proximal?mid LAD stents with RENA-3 flow LAD- Mid- % Stenosis: 0 LAD-Distal- % Stenosis: 0 Diag 1st - % Stenosis: 20 Diag 1st: Widely patent proximal LAD with 20-25% disease at the ostial proximal aspect with RENA-3 flow (moderate to large size diagonal) Ramus - & Stenosis: 100 Ramus: Occluded ramus branch in the proximal segment with left to left collaterals (chronic occlusion) CIRC- Prox % Stenosis: 0 CIRC- Mid - % Stenosis: 0 CIRC- Distal- & Stenosis: 0 CIRC- Distal: Distal circumflex?OM branch normal OM-1 -% Stenosis: 0 RCA -% Stenosis: 30 RCA: Large, hyperdominant RCA system with extensive inferolateral coverage; widely patent mid to distal RCA stents with diffuse 20 to 30% luminal regularities, supplying a large PDA branch; PLV branch is occluded with [id number]-cuxry collaterals PDA-RT -% Stenosis: 0 PLV-RT -% Stenosis: 100 PLV-RT: See above LEFT VENTRICLE EF %: 20 Global, severe LV dysfunction with ejection fraction estimated to be 20%, LVEDP 15 to 20 mmHg VALVE-AORTIC Aortic Valve Disease: No VALVE-MITRAL Mitral Valve Disease: No IMPRESSION 1. Severe ischemic cardiomyopathy 2. Widely patent LAD/diagonal branch stents from 2009 3. Widely patent mid/distal RCA stents from 2009 4. Occluded ramus branch, occluded PLV branch RCA 5. Severe left ventricular dysfunction with ejection fraction 20% RECOMMENDATIONS Reinitiate appropriate GDMT including ARB versus Arni; RAAS inhibitor (spironolactone), loop diuretic, SGLT2 inhibitor Follow-up with cardiology primary, Dr. Cummins or nurse practitioner Will need referral for AICD Documented By: Keila Davis DO 10/17/24 1550 Signed By: 10/17/24 1558 [facility]05-23-2025 Consult note Author Keila Davis [facility] Note Date/Time October 17, 2024 1:50p m [facility] EN[facility] [address] [place] [address] Cardiology Consult Note Signed Patient: Demarcus Calderon MR#: [id number] : 1955 Acct:[id number] Age/Sex: 69 / M Adm Date: 5 Loc: Room: [address] [place] [address] Type: ADM IN Attending Dr: Vincenzo Caraballo DO Copies to: MD Vincenzo Sam DO W Scott Sheldon, DO~ Cardiology HPI History of Present Illness Consult Date: 10/17/24 Reason for Consult: Acute HFrEF, ischemic cardiomyopathy, ASHD, history of two-vessel PCI's, pneumonia HPI: Mr. Calderon is a 69 year old male seen in cardiology consultation at request of Dr. Pate at [facility] and hospitalist at [facility] and patient wastransferred for further cardiovascular evaluation and management. He was hospitalized for the past 7 days at [facility] with pneumonia additionally heartfailure, found to have reduced ejection fraction of 25%; previously ejection fraction of 45%. Details of hospitalist note and conversation with Dr. Pate yesterday reviewed. Labs reviewed revealing elevated BNP of 1200 Previous coronary interventions in 2009 performed by myself reviewed, with two- vessel revascularization of the LAD diagonal branch and staged intervention of the mid through distal RCA with a total of 5 drug-eluting stents. Patient routinely follows with Dr. Cummins, he denies any angina, gave up smoking many years ago, has been treated for chronic asthmatic bronchitis and said this is his second episode of pneumonia within the last 2 years. Last echocardiogram from this facility in 2022 revealed ejection fraction of approximately 45%. Reportedly last stress perfusion exam in 2022 revealed no evidence for ischemia. Underlying comorbidities continue to include essential hypertension, hyperlipidemia, originally mild ischemic cardiomyopathy stage C, class II obesity. Risks, benefits, alternatives and informed decision-making process performed with the patient this morning, will proceed with left heart catheterization thisafternoon, prior to the holiday for further ischemic evaluation and adjudicationof appropriate medical/interventional therapies going forward; patient agrees [facility]proceed [facility] Medical History (Updated 10/17/24 @ 13:50 by Keila Davis DO) CHF (congestive heart failure) COVID Sinusitis Emphysema lung Heart attack Acid reflux Elevated cholesterol BPH (benign prostatic hyperplasia) Hypertension COPD (chronic obstructive pulmonary disease) Surgical History (Updated 10/17/24 @ 13:50 by Keila Davis DO) H/O shoulder surgery History of heart artery stent x5 Family History (Updated 10/16/24 @ 23:14 by Tootie Richmond APRN) Mother Alzheimer disease Diabetes Father AAA (abdominal aortic aneurysm) Son Heart disease Also has CHF Brother Kidney disease Father Mother Son Coronary artery disease Social History Smoking Status: Former smoker (quit in the ) Tobacco Type: cigarettes Substance Use Type: None Meds Medications and Allergies Allergies codeine Allergy (Verified 06/14/23 11:40) Hallucinating Home Medications carvedilol 12.5 mg tablet 12.5 mg PO BID 04/26/18 [History Confirmed 10/17/24] omeprazole 20 mg capsule,delayed release 20 mg PO DAILY 04/26/18 [History Confirmed 10/17/24] tamsulosin 0.4 mg capsule 0.8 mg PO QHS 04/26/18 [History Confirmed 10/17/24] benzonatate 200 mg capsule 200 mg PO TID PRN cough #14 caps 06/14/23 [Rx Confirmed 10/17/24] albuterol sulfate 90 mcg/actuation aerosol inhaler 2 inh inhalation Q6HR PRN shortness of breath or wheezing 10/17/24 [History Confirmed 10/17/24] cetirizine 10 mg tablet 10 mg PO DAILY 10/17/24 [History Confirmed 10/17/24] fluticasone propionate 115 mcg-salmeterol 21 mcg/actuation HFA inhaler (Advair HFA) 2 puff inhalation BID 10/17/24 [History Confirmed 10/17/24] fluticasone propionate 50 mcg/actuation nasal spray,suspension 2 spray intranasal DAILY 10/17/24 [History Confirmed 10/17/24] furosemide 40 mg tablet 40 mg PO DAILY 10/17/24 [History Confirmed 10/17/24] ipratropium 0.5 mg-albuterol 3 mg (2.5 mg base)/3 mL nebulization soln 3 ml inhalation Q6HR PRN shortness of breath or wheezing 10/17/24 [History Confirmed 10/17/24] montelukast 10 mg tablet 10 mg PO DAILY 10/17/24 [History Confirmed 10/17/24] Exam Physical Exam Vital Signs: Temp Pulse Resp BP Pulse Ox O2 Del Method O2 Flow Rate 98.0 F 77 20 124/74 95 Nasal Cannula 3 10/17/24 12:00 10/17/24 13:24 10/17/24 13:24 10/17/24 12:00 10/17/24 12:00 10/17/24 12:00 10/17/24 12:00 Const General: cooperative, comfortable, no acute distress, well developed and ill appearing Nutritional Appearance: overweight Orientation: alert, awake and oriented x3 HEENT Head: normal to inspection Neck Neck: normal visual inspection Chest Chest palpation & inspection: normal inspection of the chest Resp Effort & Inspection: normal respiratory effort, able to speak in complete sentences and cough Auscultation: crackles Cardio Rate: regular rate Rhythm: regular rhythm Heart Sounds: S1 normal and S2 normal Pulses: radial pulses present GI Palpation: soft Skin General: no rashes or lesions noted Neuro General: patient alert, patient awake and patient oriented x3 Cognition: normal cognition Speech: speech normal Extrem General: no clubbing, cyanosis or edema Results - Cardiology Labs 10/17/24 05:00 10/17/24 05:00 Lab results: CBC 10/17/24 Range/Units 05:00 RBC 5.31 (3.90-5.60) x10E6/uL Hgb 15.2 (13.0-17.0) g/dL Hct 44.7 (38.8-50.0) % Plt Count 211 (150-450) x10E3/uL Neut # (Auto) 10.9 H (1.8-7.7) x10E3/uL Lymph # (Auto) 2.4 (1.00-4.8) x10E3/uL [place] # (Auto) 1.1 H (0.0-0.8) x10E3/uL Eos # (Auto) 0.3 (0.0-0.45) x10E3/uL Baso # (Auto) 0.0 (0.0-0.2) x10E3/uL Comprehensive Metabolic Panel 10/17/24 Range/Units 05:00 Sodium 134 L (136-145) mmol/L Potassium 4.5 (3.5-5.1) mmol/L Chloride 98 (98-107) mmol/L Carbon Dioxide 27.2 (21.0-31.0) mmol/L BUN 22 (7-25) mg/dL Creatinine 0.89 (0.70-1.30) mg/dL Glucose 131 H (70-100) mg/dL Calcium 8.8 (8.6-10.3) mg/dL Intake and Output 10/16/24 10/17/24 10/17/24 23:59 07:59 15:59 Intake Total 350 / 350 0 / 0 0 / 0 Output Total 750 / 750 750 / 750 Balance -400 / -400 -750 / -750 0 / -750 Intake: Oral 350 / 350 0 / 0 0 / 0 Output: Urine 750 / 750 750 / 750 Other: # Unmeasured Voids 1 # Bowel Movements 0 0 1 Weight 101.1 kg 99.7 kg Date of Last Bowel Movement 10/16/24 10/16/24 Patient Weight 10/17/24 23:59 Weight 99.7 kg A&P - Cardiology (1) Acute hypoxic respiratory failure: Code(s): J96.01 - Acute respiratory failure with hypoxia (2) Community acquired pneumonia: Code(s): J18.9 - Pneumonia, unspecified organism (3) Acute on chronic systolic (congestive) heart failure: Code(s): I50.23 - Acute on chronic systolic (congestive) heart failure (4) History of heart artery stent: Code(s): Z95.5 - Presence of coronary angioplasty implant and graft (5) ASHD (arteriosclerotic heart disease): Code(s): I25.10 - Atherosclerotic heart disease of algaaciq coronary artery without angina pectoris Plan New onset severe ischemic cardiomyopathy, proceed with left heart catheterization Documented By: Keila Davis DO 10/17/24 1343 Signed By: <Electronically signed by Keila Davis DO> 10/17/24 1350 [facility] Work Phone: 1(264) 854-168205-23-20[place] [address] Hospitalist Progress Note Signed Patient: Demarcus Calderon MR#: [id number] : 1955 Acct:[id number] Age/Sex: 69 / M Adm Date: 5 Loc: Room: [address] [place] [address] Type: ADM IN Attending Dr: Vincenzo Caraballo DO Copies to: ~ Date of Service: 10/17/2024 Subjective Subjective Narrative: Seen and evaluated this morning, is present at bedside. Was initially reviewing his hospitalization from [facility] when unfortunately I was called out of the room by an insurance [employer] for a peer to peer. During this time I was told he was having increasing oxygen requirements and was unable to lay flat, stat chest x-ray was obtained which will be discussed in the assessment and plan. Patient is reevaluated in the afternoon, he is currently breathing comfortably after he has received his breathing treatments. His chest x-ray was reviewed with him at bedside this far as results ago, I did lay the patient flat and he was having no issues with shortness of breath while laying flat at all. He is currently having a good response to the Lasix. He denies any further coughing after hewas received his breathing treatment. Exam Physical Exam Vital Signs: Temp Pulse Resp BP Pulse Ox O2 Del Method O2 Flow Rate 98.0 F 77 20 124/74 95 Nasal Cannula 3 10/17/24 12:00 10/17/24 13:24 10/17/24 13:24 10/17/24 12:00 10/17/24 12:00 10/17/24 12:00 10/17/24 12:00 Narrative: General: Awake alert, no acute distress HEENT: head atraumatic, normocephalic, moist mucous membranes Neck: supple no masses, no lymphadenopathy CVS: regular rate and rhythm, no murmurs or gallops Respiratory: clear to auscultation bilaterally, no wheezing or crackles, symmetric expansion GI: soft, nondistended, nontender, positive bowel sounds with no organomegaly Extremity: moves all extremities, no restrictions of movements, no calf tenderness, no edema Neuro: AOx3, CN II-VII intact. Moves all extremities in all planes of motion. Skin: dry, intact no rashes or lesions Objective Lab Results 10/17/24 05:00 10/17/24 05:00 Meds Allergies and Active Meds Allergies codeine Allergy (Verified 06/14/23 11:40) Hallucinating Active Meds: Active Medications Generic Name Dose Route Start Last Admin Trade Name Freq PRN Reason Stop Dose Admin Acetaminophen 1,000 mg 10/16/24 21:48 Acetaminophen 500 Mg Tablet PO 10/16/25 21:47 Q6HR PRN Pain Scale 1 - 3 or fever Albuterol 2 puff 10/17/24 03:16 10/17/24 07:38 Albuterol Hfa 60 Puff/8 Gram Inhaler INHALATION 10/17/25 03:15 2 puff Q6HR PRN Administration shortness of breath or wheezing Albuterol/Ipratropium 3 ml 10/17/24 03:16 Ipratropium/Albuterol 0.5-3 Mg 3 Ml Ampul.Neb INHALATION 10/17/25 03:15 Q6HR PRN shortness of breath or wheezing Albuterol/Ipratropium 3 ml 10/17/24 12:00 10/17/24 13:23 Ipratropium/Albuterol 0.5-3 Mg 3 Ml Ampul.Neb INHALATION 10/17/25 11:59 3 ml QID.RESP KARIN Administration Albuterol/Ipratropium 3 ml 10/17/24 14:19 Ipratropium/Albuterol 0.5-3 Mg 3 Ml Ampul.Neb INHALATION 10/17/25 14:18 ONCE PRN Prior to Heart Cath Benzonatate 200 mg 10/16/24 23:32 10/16/24 23:41 Benzonatate 100 Mg Capsule PO 10/16/25 23:31 200 mg TID PRN Administration Cough Budesonide/Formoterol Fumarate 2 puff 10/17/24 10:30 10/17/24 13:22 Budesonide/Formoterol 160-4.5 Mcg 60 Puff/6 Gm Hfa.Aer.Ad INHALATION 10/17/25 10:29 Not Given BID KARIN Carvedilol 12.5 mg 10/17/24 08:00 10/17/24 08:05 Carvedilol 12.5 Mg Tablet PO 10/17/25 07:59 12.5 mg BID.WITH.MEALS KARIN Administration Fluticasone Propionate 2 spray 10/17/24 09:00 10/17/24 10:26 Fluticasone Propionate [place] 120 [place]/16 Gm Bottle INTRANASAL 10/17/25 08:59 Not Given DAILY KARIN Furosemide 40 mg 10/18/24 08:00 Furosemide 40 Mg/4 Ml Vial IV-PUSH 10/18/25 07:59 DAILY.8A KARIN Loratadine 10 mg 10/17/24 09:00 10/17/24 08:06 Loratadine 10 Mg Tablet PO 10/17/25 08:59 10 mg DAILY KARIN Administration Miscellaneous Information 1 each 10/17/24 10:32 Consult To Pharmacy MISCELLANE 10/17/25 10:31 .PHACONSULT PRN ZRohit.Pharmacy Consult Protocol Pantoprazole Sodium 40 mg 10/17/24 09:00 10/17/24 08:06 Pantoprazole 40 Mg Tablet. PO 10/17/25 08:59 40 mg DAILY KARIN Administration Potassium Chloride 40 meq 10/21/24 07:00 Potassium Chloride Er 20 Meq Tab.Er.Prt PO STAT PRN Hypokalemia Sodium Chloride 0 ml 10/16/24 22:00 10/17/24 05:59 Sodium Chloride 0.9 % 10 Ml Syringe IV-PUSH 10/16/25 21:59 Not Given QSHIFT [facility] Sodium Chloride 0 ml 10/17/24 10:32 Sodium Chloride 0.9 % 10 Ml Syringe IV-PUSH 10/17/25 10:31 PRN PRN Flush Tamsulosin HCl 0.8 mg 10/17/24 22:00 Tamsulosin 0.4 Mg Cap.Er.24h PO 10/17/25 21:59 QHS KARIN A&P - Hospitalist Assessment/Plan (1) Acute on chronic systolic (congestive) heart failure: Plan: ? Continue diuresis which was started at [facility] ? Lasix 40 m IV push twice daily ? Daily weights ? Strict I's and O's ? Patient was transferred here from [facility] for cardiology valuation ? Echocardiogram at [facility] shows ejection fraction of 25% ? Maintain n.p.o. ? Pending left heart cath later on today (2) Community acquired pneumonia: Plan: He has received full treatment at outside facility (3) Acute hypoxic respiratory failure: Plan: ? Secondary to CHF Plan Acute on chronic systolic heart failure?current EF 25%, global hypokinesis ? Consult cardiology ? Daily weights, strict I&O Community acquired pneumonia- has received 7 days of antibiotics at [facility], - Will defer antibiotics for now Acute hypoxic respiratory failure- likely due to CHF - Continue oxygen as needed, keep Spo2 > 90% Chronic conditions COPD HTN CAD HLD DVT PPx?SCDs Diet order?heart healthy, n.p.o. midnight CODE STATUS?full code Documented By: Vincenzo Caraballo DO 10/17/24 1521 Signed By: 10/17/24 1524 [facility]05-23-20[place] [address] Cardiology Consult Note Signed Patient: Demarcus Calderon MR#: [id number] : 1955 Acct:[id number] Age/Sex: 69 / M Adm Date: 5 Loc: Room: [address] [place] [address] Type: ADM IN Attending Dr: Vincenzo Caraballo DO Copies to: MD Vincenzo Sam DO W Scott Sheldon, DO~ Cardiology HPI History of Present Illness Consult Date: 10/17/24 Reason for Consult: Acute HFrEF, ischemic cardiomyopathy, ASHD, history of two-vessel PCI's, pneumonia HPI: Mr. Calderon is a 69 year old male seen in cardiology consultation at request of Dr. Pate at [facility] and hospitalist at [facility] and patient wastransferred for further cardiovascular evaluation and management. He was hospitalized for the past 7 days at [facility] with pneumonia additionally heartfailure, found to have reduced ejection fraction of 25%; previously ejection fraction of45%. Details of hospitalist note and conversation with Dr. Pate yesterday reviewed. Labs reviewed revealing elevated BNP of 1200 Previous coronary interventions in 2009 performed by myself reviewed, with two- vessel revascularization of the LAD diagonal branch and staged intervention of the mid through distal RCA with a total of 5 drug-eluting stents. Patient routinely follows with Dr. Cummins, he denies any angina, gave up smoking many years ago, has been treated for chronic asthmatic bronchitis and said this is his second episode of pneumonia within the last 2 years. Last echocardiogram from this facility in 2022 revealed ejection fraction of a pproximately 45%. Reportedly last stress perfusion exam in 2022 revealed no evidence for ischemia. Underlying comorbidities continue to include essential hypertension, hyperlipidemia, originally mild ischemic cardiomyopathy stage C, class II obesity. Risks, benefits, alternatives and informed decision-making process performed with the patient this morning, will proceed with left heart catheterization thisafternoon, prior to the holiday for further ischemic evaluation and adjudicationof appropriate medical/interventional therapies going forward; patient agrees toproceed [facility] Medical History (Updated 10/17/24 @ 13:50 by Keila Davis DO) CHF (congestive heart failure) COVID Sinusitis Emphysema lung Heart attack Acid reflux Elevated cholesterol BPH (benign prostatic hyperplasia) Hypertension COPD (chronic obstructive pulmonary disease) Surgical History (Updated 10/17/24 @ 13:50 by Keila Davis DO) H/O shoulder surgery History of heart artery stent x5 Family History (Updated 10/16/24 @ 23:14 by Tootie Richmond APRN) Mother Alzheimer disease Diabetes Father AAA (abdominal aortic aneurysm) Son Heart disease Also has CHF Brother Kidney disease Father Mother Son Coronary artery disease Social History Smoking Status: Former smoker (quit in the s) Tobacco Type: cigarettes Substance Use Type: None Meds Medications and Allergies Allergies codeine Allergy (Verified 06/14/23 11:40) Hallucinating Home Medications carvedilol 12.5 mg tablet 12.5 mg PO BID 04/26/18 [History Confirmed 10/17/24] omeprazole 20 mg capsule,delayed release 20 mg PO DAILY 04/26/18 [History Confirmed 10/17/24] tamsulosin 0.4 mg capsule 0.8 mg PO QHS 04/26/18 [History Confirmed 10/17/24] benzonatate 200 mg capsule 200 mg PO TID PRN cough #14 caps 06/14/23 [Rx Confirmed 10/17/24] albuterol sulfate 90 mcg/actuation aerosol inhaler 2 inh inhalation Q6HR PRN shortness of breath orwheezing 10/17/24 [History Confirmed 10/17/24] cetirizine 10 mg tablet 10 mg PO DAILY 10/17/24 [History Confirmed 10/17/24] fluticasone propionate 115 mcg-salmeterol 21 mcg/actuation HFA inhaler (Advair HFA) 2 puff inhalation BID 10/17/24 [History Confirmed 10/17/24] fluticasone propionate 50 mcg/actuation nasal spray,suspension 2 spray intranasal DAILY 10/17/24 [History Confirmed 10/17/24] furosemide 40 mg tablet 40 mg PO DAILY 10/17/24 [History Confirmed 10/17/24] ipratropium 0.5 mg-albuterol 3 mg (2.5 mg base)/3 mL nebulization soln 3 ml inhalation Q6HR PRN shortness of breath or wheezing 10/17/24 [History Confirmed 10/17/24] montelukast 10 mg tablet 10 mg PO DAILY 10/17/24 [History Confirmed 10/17/24] Exam Physical Exam Vital Signs: Temp Pulse Resp BP Pulse Ox O2 Del Method O2 Flow Rate 98.0 F 77 20 124/74 95 Nasal Cannula 3 10/17/24 12:00 10/17/24 13:24 10/17/24 13:24 10/17/24 12:00 10/17/24 12:00 10/17/24 12:00 10/17/24 12:00 Const General: cooperative, comfortable, no acute distress, well developed and ill appearing Nutritional Appearance: overweight Orientation: alert, awake and oriented x3 HEENT Head: normal to inspection Neck Neck: normal visual inspection Chest Chest palpation & inspection: normal inspection of the chest Resp Effort & Inspection: normal respiratory effort, able to speak in complete sentences and cough Auscultation: crackles Cardio Rate: regular rate Rhythm: regular rhythm Heart Sounds: S1 normal and S2 normal Pulses: radial pulses present GI Palpation: soft Skin General: no rashes or lesions noted Neuro General: patient alert, patient awake and patient oriented x3 Cognition: normal cognition Speech: speech normal Extrem General: no clubbing, cyanosis or edema Results - Cardiology Labs 10/17/24 05:00 10/17/24 05:00 Lab results: CBC 10/17/24 Range/Units 05:00 RBC 5.31 (3.90-5.60) x10E6/uL Hgb 15.2 (13.0-17.0) g/dL Hct 44.7 (38.8-50.0) % Plt Count 211 (150-450) x10E3/uL Neut # (Auto) 10.9 H (1.8-7.7) x10E3/uL Lymph # (Auto) 2.4 (1.00-4.8) x10E3/uL [place] # (Auto) 1.1 H (0.0-0.8) x10E3/uL Eos # (Auto) 0.3 (0.0-0.45) x10E3/uL Baso # (Auto) 0.0 (0.0-0.2) x10E3/uL Comprehensive Metabolic Panel 10/17/24 Range/Units 05:00 Sodium 134 L (136-145) mmol/L Potassium 4.5 (3.5-5.1) mmol/L Chloride 98 (98-107) mmol/L Carbon Dioxide 27.2 (21.0-31.0) mmol/L BUN 22 (7-25) mg/dL Creatinine 0.89 (0.70-1.30) mg/dL Glucose 131 H (70-100) mg/dL Calcium 8.8 (8.6-10.3) mg/dL Intake and Output 10/16/24 10/17/24 10/17/24 23:59 07:59 15:59 Intake Total 350 / 350 0 / 0 0 / 0 Output Total 750 / 750 750 / 750 Balance -400 / -400 -750 / -750 0 / -750 Intake: Oral 350 / 350 0 / 0 0 / 0 Output: Urine 750 / 750 750 / 750 Other: # Unmeasured Voids 1 # Bowel Movements 0 0 1 Weight 101.1 kg 99.7 kg Date of Last Bowel Movement 10/16/24 10/16/24 Patient Weight 10/17/24 23:59 Weight 99.7 kg A&P - Cardiology (1) Acute hypoxic respiratory failure: Code(s): J96.01 - Acute respiratory failure with hypoxia (2) Community acquired pneumonia: Code(s): J18.9 - Pneumonia, unspecified organism (3) Acute on chronic systolic (congestive) heart failure: Code(s): I50.23 - Acute on chronic systolic (congestive) heart failure (4) History of heart artery stent: Code(s): Z95.5 - Presence of coronary angioplasty implant and graft (5) ASHD (arteriosclerotic heart disease): Code(s): I25.10 - Atherosclerotic heart disease of [place] coronary artery without angina pectoris Plan New onset severe ischemic cardiomyopathy, proceed with left heart catheterization Documented By: Keila Davis DO 10/17/24 1343 Signed By: 10/17/24 1350 [facility]05-23-2025 History and physical note Author Tootie Richmond [facility] Note Date/Time October 17, 2024 2:47a m [facility] [address] [place] [address] Hospitalist H&P Signed with Addenda Patient: Demarcus Calderon MR#: [id number] : 1955 Acct:[id number] Age/Sex: 69 / M Adm Date: 5 Loc: Room: [address] [place] [address] Type: ADM IN Attending Dr: Ricardo Aguero DO Copies to: DO Tootie Lopes APRN Robert L Hill, MD~ ADDENDUM1 Adding on contributor Addendum Documented By: WILLIAN Richmond 10/16/242332 Addendum Signed By: <Electronically signed by WILLIAN Richmond> 10/16/242332 <Electronically signed by Ricardo Aguero DO> 10/17/24 0247 HPI DATE OF EXAMINATION: 10/16/24 CHIEF COMPLAINT: heart failure HISTORY OF PRESENT ILLNESS: Mr. Calderon is a 69-year-old male with a PMH of HTN, CHF, COPD, CAD?5 cardiac stents that was transferred here to [facility] for exacerbation of congestive heart failure. He states he has been at [facility] since the for shortness of breath and a cough. States he had pneumonia he was receiving antibiotics, he had fever and chills, productive cough. He states he still has shortness of breath on exertion, says his pulse ox drops when he is up walking around. He is currently 2 L nasal cannula, does not wear oxygen at home. He denies chest pain, nausea vomiting, current fever or chills. He states that his master cook is Dr. Jerez. He reports he quit smoking in the , denies alcohol or illicit drug use. [facility] chart review?patient was admitted to [facility] on 10/09/2024 for exacerbation of COPD, sepsis, failed outpatient treatment. Lactic acid was 2.9, repeat 1.2. Nasal swab was negative for Influenza, RSV and Covid. Blood cultures were both negative. He received levofloxacin, Zosyn in ER switched to ceftriaxone, azithromycin, furosemide po and IV, started on a Bumex drip today. He also received solumedrol in ER. Daily prendisone on the floor. Echo with EF 25%, global hypokinesis. CXR with opacities. On arrival to ER his WBC was 9.4, H&H 13.4/39.4. BMP with a sodium of 130. Current CBC with a WBC count 12, H&H 13.9/41.4. BMP with a BUN of 23, creatinine 1.01, K 4.1. Troponin 24.6. BNP 304. He received one dose of Enteresto . Review of Systems Review of Systems Review of systems: A 10 point review of systems was obtained, negative unless noted in the HPI or below. [facility] Medical History (Updated 10/16/24 @ 23:13 by Tootie Richmond, CHIEF YEOMAN) CHF (congestive heart failure) COVID Sinusitis Emphysema lung Heart attack Acid reflux Elevated cholesterol BPH (benign prostatic hyperplasia) Hypertension COPD (chronic obstructive pulmonary disease) Surgical History H/O shoulder surgery History of heart artery stent x5 Family History (Updated 10/16/24 @ 23:14 by Tootie Richmond APRN) Mother Alzheimer disease Diabetes Father AAA (abdominal aortic aneurysm) Son Heart disease Also has CHF Brother Kidney disease Father Mother Son Coronary artery disease Social History Marital Status: Smoking Status: Former smoker (quit in the 90s) Tobacco Type: cigarettes Substance Use Type: None Meds Medications and Allergies Allergies codeine Allergy (Verified 06/14/23 11:40) Hallucinating Home Medications albuterol sulfate 2.5 mg/3 mL (0.083 %) solution for nebulization 2.5 mg (3 mL) inhalation Q6H PRN shortness of breath or wheezing #30 mL 09/19/17 [Rx Confirmed 07/28/19] carvedilol 12.5 mg tablet 12.5 mg PO BID 04/26/18 [History Confirmed 07/28/19] hydrochlorothiazide 25 mg tablet 25 mg PO DAILY 04/26/18 [History Confirmed 07/28/19] losartan 25 mg tablet 25 mg PO DAILY 04/26/18 [History Confirmed 07/28/19] omeprazole 20 mg capsule,delayed release 20 mg PO DAILY 04/26/18 [History Confirmed 07/28/19] tamsulosin 0.4 mg capsule 0.4 mg PO DAILY 04/26/18 [History Confirmed 07/28/19] aspirin 81 mg chewable tablet 81 mg PO DAILY 07/28/19 [History Confirmed 07/28/19] budesonide-formoterol HFA 160 mcg-4.5 mcg/actuation aerosol inhaler 2 puff inhalation Q12H 07/28/19 [History Confirmed 07/28/19] cholecalciferol (vitamin D3) 25 mcg (1,000 unit) tablet (Vitamin D3) 1,000 unit PO DAILY 07/28/19 [History Confirmed 07/28/19] cyanocobalamin (vitamin B-12) 1,000 mcg capsule 1,000 mcg PO DAILY 07/28/19 [History Confirmed 07/28/19] multivitamin 1 tab PO DAILY 07/28/19 [History Confirmed 07/28/19] rosuvastatin 20 mg tablet 20 mg PO DAILY 07/28/19 [History Confirmed 07/28/19] sildenafil 100 mg tablet 100 mg PO DAILY PRN Erectile Dysfunction 07/28/19 [History Confirmed 07/28/19] vitamin E 268 mg (400 unit) capsule 400 unit PO DAILY 07/28/19 [History Confirmed 07/28/19] albuterol sulfate 2.5 mg/0.5 mL solution for nebulization 2.5 mg (0.5 mL) inhalation Q4-6H PRN shortness of breath or wheezing #30 ea 06/14/23 [Rx] benzonatate 200 mg capsule 200 mg PO TID PRN cough #14 caps 06/14/23 [Rx] doxycycline hyclate 100 mg tablet 100 mg PO BID 5 days #10 tabs 06/14/23 [Rx] prednisone 20 mg tablet 40 mg (2 x 20 mg) PO DAILY 5 days #10 tabs 06/14/23 [Rx] Exam Physical Exam Narrative: CONST- Appears well -developed and well nourished. Morbidly obese?BMI 33.9 HEAD - Normocephalic and atraumatic EENT-Sclera nonicteric, conjunctive are non-erythemic, moist oral mucosa, pharynx clear NECK-Supple, no cervical lymphadenopathy CARDIAC-normal rate, regular rhythm, S1 & S2. PULM-diminished, fine crackles to right posterior base, 2L NC, no accessory muscle use or cough noted ABD - Soft. Bowel sounds are normal. Softly distended. No tenderness EXTREM- scant edema BLE calves, nontender SKIN- W/D good turgor MS- MAEX4 spontaneously with equal with equal strength NEURO- A&Ox3 speech clear and tongue midline, equal facial symmetry, no focal motor deficits PSYCH-Mood, affect, and behavior appropriate Assessment & Plan Assessment/Plan (1) Acute on chronic systolic (congestive) heart failure: (2) Community acquired pneumonia: (3) Acute hypoxic respiratory failure: Plan Acute on chronic systolic heart failure?current EF 25%, global hypokinesis ? Consult cardiology ? Daily weights, strict I&O Community acquired pneumonia- has received 7 days of antibiotics at [facility], - Will defer antibiotics for now Acute hypoxic respiratory failure- likely due to CHF - Continue oxygen as needed, keep Spo2 > 90% Chronic conditions COPD HTN CAD HLD DVT PPx?SCDs Diet order?heart healthy, n.p.o. midnight CODE STATUS?full code IP vs OBS Justification Based on differential dx, clinical care plan, and risk of adverse events, if untreated, in my clinical judgement this patient requires an acute care setting as: INPATIENT because of an expectation of an over 2 midnight stay. Estimated length of stay (# of days): 3 Documented By: Tootie Richmond APRN 10/16/242204 Signed By: <Electronically signed by WILLIAN Richmond> 10/16/242331 [facility] Work Phone: 1(721) 228-891605-23-2025 [place] [address] Hospitalist H&P Signed with Addenda Patient: Demarcus Calderon MR#: [id number] : 1955 Acct:[id number] Age/Sex: 69 / M Adm Date: 5 Loc: Room: [address] [place] [address] Type: ADM IN Attending Dr: Ricardo Aguero DO Copies to: Ricardo Aguero, DO Tootie Richmond, WILLIAN Flower MD~ ADDENDUM1 Adding on contributor Addendum Documented By: WILLIAN Richmond 10/16/242332 Addendum Signed By: 10/16/24233210/17/24 0247 HPI DATE OF EXAMINATION: 10/16/24 CHIEF COMPLAINT: heart failure HISTORY OF PRESENT ILLNESS: Mr. Calderon is a 69-year-old male with a PMH of HTN, CHF, COPD, CAD?5 cardiac stents that was transferred here to [facility] for exacerbation of congestive heart failure. He states he has been at [facility] since the for shortness of breath and a cough. States he had pneumonia he was receiving antibiotics, he had fever and chills, productive cough. He states he still has shortness of breath on exertion, says his pulse ox drops when he is up walking around. He iscurrently 2 L nasal cannula, does not wear oxygen at home. He denies chest pain, nausea vomiting, current fever or chills. He states that his master cook is Dr. Jerez. He reports he quit smoking in the 90s, denies alcohol or illicit drug use. [facility] chart review?patient was admitted to [facility] on 10/09/2024 for exacerbation of COPD, sepsis, failed outpatient treatment. Lactic acid was 2.9, repeat 1.2. Nasal swab was negative for Influenza, RSV and Covid. Blood cultures were both negative. He received levofloxacin, Zosyn in ER switched to ceftriaxone, azithromycin, furosemide po and IV, started on a Bumex drip today. He also received solumedrol in ER. Daily prendisone on the floor. Echo with EF 25%, global hypokinesis. CXR with opacities. On arrival to ER his WBC was 9.4, H&H 13.4/39.4. BMP with a sodium of 130. Current CBC with a WBC count 12, H&H 13.9/41.4. BMP with a BUN of 23, creatinine 1.01, K 4.1. Troponin 24.6. BNP 304. He received one dose of Enteresto . Review of Systems Review of Systems Review of systems: A 10 point review of systems was obtained, negative unless noted in the HPI or below. [facility] Medical History (Updated 10/16/24 @ 23:13 by Tootie Richmond APRN) CHF (congestive heart failure) COVID Sinusitis Emphysema lung Heart attack Acid reflux Elevated cholesterol BPH (benign prostatic hyperplasia) Hypertension COPD (chronic obstructive pulmonary disease) Surgical History H/O shoulder surgery History of heart artery stent x5 Family History (Updated 10/16/24 @ 23:14 by Tootie Richmond APRN) Mother Alzheimer disease Diabetes Father AAA (abdominal aortic aneurysm) Son Heart disease Also has CHF Brother Kidney disease Father Mother Son Coronary artery disease Social History Marital Status: Smoking Status: Former smoker (quit in the ) Tobacco Type: cigarettes Substance Use Type: None Meds Medications and Allergies Allergies codeine Allergy (Verified 06/14/23 11:40) Hallucinating Home Medications albuterol sulfate 2.5 mg/3 mL (0.083 %) solution for nebulization 2.5 mg (3 mL) inhalation Q6H PRN shortness of breath or wheezing #30 mL 09/19/17 [Rx Confirmed 07/28/19] carvedilol 12.5 mg tablet 12.5 mg PO BID 04/26/18 [History Confirmed 07/28/19] hydrochlorothiazide 25 mg tablet 25 mg PO DAILY 04/26/18 [History Confirmed 07/28/19] losartan 25 mg tablet 25 mg PO DAILY 04/26/18 [History Confirmed 07/28/19] omeprazole 20 mg capsule,delayed release 20 mg PO DAILY 04/26/18 [History Confirmed 07/28/19] tamsulosin 0.4 mg capsule 0.4 mg PO DAILY 04/26/18 [History Confirmed 07/28/19] aspirin 81 mg chewable tablet 81 mg PO DAILY 07/28/19 [History Confirmed 07/28/19] budesonide-formoterol HFA 160 mcg-4.5 mcg/actuation aerosol inhaler 2 puff inhalation Q12H 07/28/19[History Confirmed 07/28/19] cholecalciferol (vitamin D3) 25 mcg (1,000 unit) tablet (Vitamin D3) 1,000 unit PO DAILY 07/28/19 [History Confirmed 07/28/19] cyanocobalamin (vitamin B-12) 1,000 mcg capsule 1,000 mcg PO DAILY 07/28/19 [History Confirmed 07/28/19] multivitamin 1 tab PO DAILY 07/28/19 [History Confirmed 07/28/19] rosuvastatin 20 mg tablet 20 mg PO DAILY 07/28/19 [History Confirmed 07/28/19] sildenafil 100 mg tablet 100 mg PO DAILY PRN Erectile Dysfunction 07/28/19 [History Confirmed 07/28/19] vitamin E 268 mg (400 unit) capsule 400 unit PO DAILY 07/28/19 [History Confirmed 07/28/19] albuterol sulfate 2.5 mg/0.5 mL solution for nebulization 2.5 mg (0.5 mL) inhalation Q4-6H PRN shortness of breath or wheezing #30 ea 06/14/23 [Rx] benzonatate 200 mg capsule 200 mg PO TID PRN cough #14 caps 06/14/23 [Rx] doxycycline hyclate 100 mg tablet 100 mg PO BID 5 days #10 tabs 06/14/23 [Rx] prednisone 20 mg tablet 40 mg (2 x 20 mg) PO DAILY 5 days #10 tabs 06/14/23 [Rx] Exam Physical Exam Narrative: CONST- Appears well -developed and well nourished. Morbidly obese?BMI 33.9 HEAD - Normocephalic and atraumatic EENT-Sclera nonicteric, conjunctive are non-erythemic, moist oral mucosa, pharynx clear NECK-Supple, no cervical lymphadenopathy CARDIAC-normal rate, regular rhythm, S1 & S2. PULM-diminished, fine crackles to right posterior base, 2L NC, no accessory muscle use or cough noted ABD - Soft. Bowel sounds are normal. Softly distended. No tenderness EXTREM- scant edema BLE calves, nontender SKIN- W/D good turgor MS- MAEX4 spontaneously with equal with equal strength NEURO- A&Ox3 speech clear and tongue midline, equal facial symmetry, no focal motor deficits PSYCH-Mood, affect, and behavior appropriate Assessment & Plan Assessment/Plan (1) Acute on chronic systolic (congestive) heart failure: (2) Community acquired pneumonia: (3) Acute hypoxic respiratory failure: Plan Acute on chronic systolic heart failure?current EF 25%, global hypokinesis ? Consult cardiology ? Daily weights, strict I&O Community acquired pneumonia- has received 7 days of antibiotics at [place], - Will defer antibiotics for now Acute hypoxic respiratory failure- likely due to CHF - Continue oxygen as needed, keep Spo2 > 90% Chronic conditions COPD HTN CAD HLD DVT PPx?SCDs Diet order?heart healthy, n.p.o. midnight CODE STATUS?full code IP vs OBS Justification Based on differential dx, clinical care plan, and risk of adverse events, if untreated, in my clinical judgement this patient requires an acute care setting as: INPATIENT because of an expectation ofan over 2 midnight stay. Estimated length of stay (# of days): 3 Documented By: Tootie Richmond, WILLIAN 10/16/242204 Signed By: 10/16/24 2332 [facility]05-22-2025 Evaluation note* Diagnosis Onset Date Resolution Status Admit Date Acute hypoxic respiratory failure ac leah October 16, 2024 9:38pm Acute on chronic systolic (congestive) heart failure acute September 262024 9:38pm ASHD (arteriosclerotic heart disease) acute October 16, 2024 9 :38pm Community acquired pneumonia acute October 16, 2024 9:38pm History of heart artery stent acute October 16, 2024 9:38pm [facility] Work Phone: 1(514) 836-156805-22-2025 Evaluation note* Diagnosis Onset Date Resolution Status Admit Date Acute hypoxic respiratory failure resolved October 16, 2024 9 :38pm Acute on chronic systolic (congestive) heart failure resolved September 262024 9:38pm Community acquired pneumonia resolve d October 16, 2024 9:38pm ASHD (arteriosclerotic heart disease) inactive October 16, 2024 9 :38pm History of heart artery stent inacti ve October 16, 2024 9:38pm [facility] Work Phone: 1(176) 981-491204-30-2025 History of Present illness Narrative* Sally Ba, ROHITH - 09/24/2024 1:30 PM EDT Images from the original note were not included. Demarcus Calderon is a 69 y.o. male presents with chief complaint of 6 Month Follow Up of Chronic Conditions, Medicare Annual Wellness Visit Subsequent, and ER Follow-up ([facility] 09/22/2024 for CHF. He was advised to resume Lasix, which was discontinued in the past due to low sodium levels.) HPI: History of Present Illness The patient is a 69-year-old male who presents for a 6-month office visit and Medicare wellness. Hyponatremia and Respiratory Distress Hospitalization occurred in 06/2024 due to hyponatremia, leading to the discontinuation of diureticmedication. Respiratory distress due to fluid accumulation prompted a recent emergency room visit 2days ago, where intravenous diuretic therapy was administered. Improved sleep quality is reported since the incident. He is under the care of Dr. Morgan, a master cook, and has resumed his diuretic regimen. - [...] incident. Prediabetes Monitoring [facility] work [facility] is scheduled for 10/10/2024. He is not currently on any antidiabetic medications and is monitored for prediabetes, with an A1c of 6.3 in 2023. - Timing: Blood work scheduled for 10/10/2024 for the [facility]. - Severity: A1c of 6.3 in 2023. PSA Levels Monitoring Dr. Baptiste, a urologist, is monitoring his prostate-specific antigen (PSA) levels, which improved from 6.0 to 2.3 between last year and 03/2024. - Timing: PSA levels improved between last year and 03/2024. - Severity: PSA levels improved from 6.0 to 2.3. Colonoscopy Referral A referral for a colonoscopy at [facility] has been declined, opting to defer the procedure for a year. Medical History and Vaccinations There is no history of chickenpox, but he has had mumps and measles. The shingles vaccine was administered in 2017. Living Will and Power of Finishing Department Supervisor A living will and power of associate attorney are in place. Resuscitation efforts are desired in the event ofcardiac arrest, but not if declared brain . [...] John Baptiste MD as Referring Physician (Urology) [facility] (Optometry) Gurjit Busby NP as Nurse Practitioner (Family Medicine) [...] Yes Vision Screening: Yes, patient sees regular art specialist/asphalt tamper Cognitive Screening Self Assessment: No overt cognitive deficiency is apparent by direct observation Three Word Registration: Banana, [place], Chair Clock Drawing: Normal Clock - 2 Three Word Recall: 2/3 words correct - 2 Total Score (0-5 Points): 4 Pain Assessment Pain Score: 0 - No pain HISTORIES: PAST MEDICAL HISTORY: Past Medical History: Diagnosis Date Asthma BPH (benign prostatic hyperplasia) CAD (coronary artery disease) ([facility]) COPD (chronic obstructive pulmonary disease) ([facility]) Emphysema, unspecified Hypercholesterolemia ([facility]) Hypertensive heart disease SURGICAL HISTORY: Past Surgical [...] 50 MCG/ACT nasal spray 2 sprays, Daily Kuzuwejbafq-Tctjokccc-Jpwxpt (Trelegy Ellipta) 100-62.5-25 MCG/ACT aerosol powder 1 [...] PLAN: Assessment & Plan 1. Essential hypertension ([facility]/HCC) BP stable. Continue current regimen. Call if numbers are running low or high. - CBC and differential; Future - Comprehensive metabolic panel; Future - Urinalysis with microscopic; Future - Microalbumin / creatinine urine ratio; Future - CBC and differential - Comprehensive metabolic panel - Urinalysis with microscopic - Microalbumin / creatinine urine ratio 2. Pure hypercholesterolemia ([facility]/HCC) He is taking Rosuvastatin. Continue current regimen. [...] with eag 5. Coronary artery disease involving algaaciq coronary artery of algaaciq heart without angina pectoris([facility]) Doing well. Denies any anginal symptoms. Continue [...] Morbid (severe) obesity due to excess calories ([facility]) As above. 11. Medicare annual wellness visit, subsequent Patient here for annual Medicare Wellness visit with Soledad Ba NP. Demographics were updated. Self-assessment was completed. Past medical, family, and social history were updated. The medication list, including supplements being taken, was updated. A list of other current medical providers was es tablished/updated. Time was spent discussing health maintenance issues, ordering proper testing, and a schedule was provided regarding recommended screening. We discussed safety issues and fall risk.Depression screening was completed and addressed. Fall screening was completed and addressed. Cognitive function was assessed by direct observation and assessment of ability to perform ADL's and IADL's was done. The current BMI was provided and will continue to be monitored at routine office visitsas well. Major risk factors for chronic disease [...] today and is supervising patient care. I amfollowing Dr. Flower's established plan of care for the above issues. documented in this encounterMercy hospital [id number] NotePatient Education Urology Benign Prostatic Hyperplasia Benign prostatic [...] this procedure, a tool is inserted through theopening at the tip of the penis (urethra). [...] procedure uses radio frequencies to destroy and removea small amount of prostate tissue. ? Interstitial laser coagulation (ILC). This procedure uses a laser to destroy and remove a small amount of prostate tissue. ? Transurethral electrovaporization (TUVP). This procedure uses electrodes to destroy and remove a small amount of prostate tissue. ? Prostatic urethral lift. This procedure inserts an implant to push the lobes of the prostate awayfrom the urethra. Follow these instructions at home: ??? Take isqa-ctq-kphddtv and prescription medicines only as told by [...] symptoms do not get (more content not included)...[facility]03-24-2025 NotePatient Education Urology Benign Prostatic Hyperplasia Benign prostatic [...] this procedure, a tool is inserted through theopening at the tip of the penis (urethra). [...] procedure uses radio frequencies to destroy and removea small amount of prostate tissue. ? Interstitial laser coagulation (ILC). This procedure uses a laser to destroy and remove a small amount of prostate tissue. ? Transurethral electrovaporization (TUVP). This procedure uses electrodes to destroy and remove a small amount of prostate tissue. ? Prostatic urethral lift. This procedure inserts an implant to push the lobes of the prostate awayfrom the urethra. Follow these instructions at home: ??? Take htpg-yza-yljvdwl and prescription medicines only as told by [...] symptoms do not get (more content not included)...[facility]03-14-2025 Hospital Discharge instructions Patient Education 08/08/2024 13:12:22 [...] cause to be alarmed; UNLESS you are havingsignificant pain associated with the leakage or the [...] can last up to 4 weeks and includes:pelvic ache, urinary frequency, and urinary urgency. Most [...] Up Care 06/23/2024 15:57:15 With:John BAPTISTE Address: [facility] [employer] [place] [address]- Business (1) When: Unknown Comments:Push the fluids to keep the urine clear. Stay on the Flomax for now.Some discharge instructions have been provided. If the bleeding gets severe, or the catheter is clogging from blood clots, you needto go to the ER for irrigation.Will make a one week appt. to remove the catheter. [facility] 03-14-2025 NotePatient Education Urolift ??? Some men may experience [...] cause to be alarmed; UNLESS you are havingsignificant pain associated with the leakage or the [...] surgeon, seek help from a hospital emergency room.[facility]03-14-2025 Evaluation + Plan noteExtracted from: Title:EU UroLift 8 Implants- FT Author:John BAPTISTE MD Date:08/08/24 Patient: DEMARCUS CALDERON Age: 69 years Sex: Male : 1955 Associated Diagnoses: None Author: John BAPTISTE MD Procedure Operative Information Details: Date/ Time: 08/08/2024 13:41:00. Pre-Op Dx: Acute urinary retention (IIS38-VB R33.8, Working, Medical), BPH with obstruction/lower urinary tract symptoms (MFB71-VD N40.1, Working, Medical). Post-Op Dx: Same. Anesthesia [...] procedure (10 mg diazepam, 5/325 mg of [place]), Local Anesthesia (60cc 2% Xylocaine liquid inserted [...] up in 1-2 weeks. . Addendum by EMILE SHELLEY, John Hauser on August 08, 2024 13:51 EDT The patient voided about 100 cc without problems, but the urine is bloody. Discussed options. Will place three way [place], push fluids, and may need ER evaluation and CBI if the bleeding gets more persistent/severe. He agrees with the plan. Future Appointments Appointment Date:08/13/2024 12:00:00 PM Scheduled Provider: Location:[facility] Appointment Type:Urology CALL PAT Appointment Date:08/15/2024 08:00:00 AM Scheduled Provider: Location:[facility] Appointment Type:URO Nurse Visit [facility] 02-20-2025 History of Present illness Narrative* [...] Erythema intertrigo Pubic, Right Foot - Anterior Turner moist plaques. Flaring today Discussed that intertrigo is a chronic condition that can be controlled but not cured. Recommend keeping areas as dry as possible to avoid flares. Start Nystatin powder every day. Start HC 2.5% creamevery day prn itching, hold if not itchy. Notify office if worsening despite treatment. nystatin (Mycostatin) 448221 UNIT/GM powder - Pubic Apply to the affected area on groin area, once daily, 30 day supply hydrocortisone 2.5 % cream - Pubic Apply thin layer to affected areas on groin up once or twice daily prn itching. Hold if not itchy. Next Visit: 3-4 weeks if not improving documented in this encounterMercy hospital [id number] History of Present illness Narrative* Sally Loan Ba, BANKING ANALYST - 07/02/2024 9:15 AM EST Images from the original note were not included. Demarcus Calderon is a 69 y.o. male presents with chief complaint of ER Follow-up ([facility] 06/29/2024 dx: COPD exacerbation 2ndry viral [...] Flowsheet Row Patient Outreach from 06/30/2024 in [facility] with Orquidea Shah RN Hospital Information ED, Hospital or [facility] Facility Discharge? ED Patient has been contacted within 1 week of being seen in the ED Yes Diagnosis COPD exacerbation secondary to viral infection Discharge Date 06/29/24 Discharged To: Home Setting Discharge Hospital -- [[facility]] Engagement Admission Date 06/29/24 Medications Discharge medications reviewed and reconciled from hospital? Yes [Z-santso, Prednisone, Mucinex] Is the patient having any [...] Wrap Up Additional Comments Patient present to [facility] ER with a productive cough and runny nose X2 weeks. Pt given a breathing treatnment in ER. Pt dx: possible COPD exacerbation secondary to viralinfection. Pt discharged home on Z- santos, Prednisone, and Mucinex. HISTORIES: PAST MEDICAL HISTORY: Past Medical History: Diagnosis Date Asthma ([facility]) BPH (benign prostatic hyperplasia) CAD (coronary artery disease) ([facility]) COPD (chronic obstructive pulmonary disease) ([facility]) Emphysema, unspecified ([facility]) Hypercholesterolemia ([facility]) Hypertensive heart disease ([facility]) SURGICAL HISTORY: Past Surgical History: [...] azithromycin (ZITHROMAX) 250 mg, See admin instructions Jarrod Aerosphere 160-9-4.8 MCG/ACT aerosol INHALE 2 PUFFS BY MOUTH 2 TIMES A DAY, RINSE MOUTH AFTER USE carvedilol (COREG) 6.25 mg, Oral, 2 times daily with meals cholecalciferol (VITAMIN D-3) 50 mcg, Daily ezetimibe (ZETIA) 10 mg, Nightly fluticasone (Flonase) 50 MCG/ACT nasal spray 2 sprays, Daily Pwrbfpgqsag-Rcjqiaqdn-Clwaml (Trelegy Ellipta) 100-62.5-25 MCG/ACT aerosol powder 1 [...] a topical cream will be sent to [facility] pharmacy. Follow up if not resolving. - [...] referral to Dermatology; Future documented in this encounterMercy hospital [id number] Hospital Discharge instructions Patient Education 06/23/2024 15:40:46 [...] including vitamins, herbs, eye drops, creams, and dciz-vkk-efkzzkq medicines. Any problems you or family members [...] provider tells you to take them. Taking oheu-ifp-akdikyn medicines, vitamins, herbs, and supplements. Surgery safety [...] provider. Document Revised: 12/09/2021 Document Reviewed: 12/09/2021 [employer] Patient Education 2023 [employer]. Follow Up Care 04/28/2024 12:25:17 With:EMILE SHELLEY, John Hauser, URL Address: [address]ainey R[address] [address]- When: Unknown [facility] [place] [id number] NotePatient Education Urology Prostatic Urethral Lift Prostatic [...] including vitamins, herbs, eye drops, creams, and hxbd-udh-qsanlas medicines. ??? Any problems you or family [...] tells you to take them. ??? Taking svhk-ags-hjeszve medicines, vitamins, herbs, and supplements. Surgery safety [...] procedure to relieve symptoms (more content not included)...[facility]12-19-2024 History of Present illness Narrative* Rene [...] , Rfl: omega-3 fatty acids-fish oil (One-Per-Day Monitor-3) 684-1,200 mg capsule, Take as directed, Disp: [...] 11 Assessment/Plan 1. Coronary artery disease involving algaaciq coronary artery of algaaciq heart without angina pectorisFollow Up In Cardiology [...] exam, discussion and plan. documented in this [facility] Work Phone: 1(227) 644-824112-19-2024 Instructions* Patient Instructions* Ana Cunningham LPN - [...] on exercise. Follow up documented in this [facility] Work Phone: [phone]) 422-742112-11-2024 History of Present illness Narrative* Gurjit Busby NP - 05/07/2024 5:15 PM EST Images from the original note were not included. [address] , [address] [facility], [address] P: [phone] F: [phone] HPI Historian of HPI: patient Demarcus Calderon [...] PE. IH Testing: Pt was admitted to [facility] for pneumonia in January of 2024. [...] with exam. TREATMENT PLAN documented in this [facility]12-11-2024 Instructions* Patient Instructions* Gurjit Busby NP - 05/07/2024 5:15 PM EST Cover for otitis. Finish all doses of antibiotic Push fluids, may continue with OTC Meds for sy mptom relief COPD Is stable, saw pulmonology today documented in this [facility]12-02-2024 Hospital Discharge instructions Patient Education 04/28/2024 [...] nerve stimulation). ?For women, using a medical physics teacher to prevent urine leaks. This is a [...] right after experiencing incontinence. General instructions Take nusz-egj-nhmonuq and prescription medicines only as told by [...] important. Where to find more information [place] of Diabetes and Digestive and Kidney Diseases: www.niddk.nih.gov [place] [employer] Association: www.urologyhealth.org Contact a health care [...] provider. Document Revised: 12/17/2020 Document Reviewed: 12/17/2020 [employer] Patient Education 2023 [employer]. 04/28/2024 12:02:20 Acute Urinary Retention, Male Acute [...] Follow these instructions at home: Medicines Take bnai-obn-brckaoo and prescription medicines only as told by [...] provider. Document Revised: 02/02/2021 Document Reviewed: 02/02/2021 [employer] Patient Education 2023 [employer]. 04/28/2024 12:02:13 Prostate Cancer Screening Prostate Cancer [...] treatment? Where to find more information The [place] [employer]: www.cancer.org [place] [employer] Association: www.auanet.org Contact a health care [...] provider. Document Revised: 11/07/2021 Document Reviewed: 11/07/2021 [employer] Patient Education 2023 [employer]. Follow Up Care 04/16/2024 11:10:33 With:SU COOK PA-C, URL Address: [facility] [place] [address] When: Unknown [facility] [place] [id number] NotePatient Education Oncology Prostate Cancer Screening Prostate [...] Where to find more information ??? The [place] [employer]: www.cancer.org ??? [place] U[employer] Association: www.auanet.org Contact a health care [...] men. The prostate gland (more content not included)...[facility]11-20-2024 NoteUrology Office/Clinic Note Chief Complaint new [...] PSA -Schedule cysto Documentation recorded by the scribe Tatiana Dyson PA-C accurately reflects the services(s) I performed and decisions made by me. Authenticated by Su Cook PA-C on 04/16/2024 14:04:40. ITatiana PA-C, personally scribed for Su Cook PA-C on 04/16/2024 13:21:20. . Follow-up With When Contact Information SU COOK PA-C, URL [address] [place] [address] Additional Instructions: f/u in 2 weeks w/ PSA and PVR Patient Education Acute Urinary Retention, Male Benign Prostatic Hyperplasia Prostatitis Problem List/Past Medical History Ongoing Chronic systolic congestive heart f (more content not included)...[facility]:Result Comment: Electronically Signed By: SU COOK PA-C\.br\Date and Time Signed: 04/16/2414:04 EST\.br\Electronically Co-Signed By: Tatiana Dyson PA-C\.br\Date and Time Co-Signed: 04/16/2413:22 EST\.br\Electronically Co-Signed By: Tatiana Dyson PA-C\.br\Date and Time Co- Signed: 04/16/2413:24 [id number] Hospital Discharge instructions Patient Education 04/16/2024 11:46:12 [...] Follow these instructions at home: Medicines Take wqvr-ong-ynyhift and prescription medicines only as told by [...] provider. Document Revised: 02/02/2021 Document Reviewed: 02/02/2021 [employer] Patient Education 2023 [employer]. 04/16/2024 11:46:02 Benign Prostatic Hyperplasia Benign Prostatic [...] urethra. Follow these instructions at home: Take gwuk-zeg-zrhjbin and prescription medicines only as told by [...] provider. Document Revised: 11/30/2021 Document Reviewed: 11/30/2021 [employer] Patient Education 2023 [employer]. 04/16/2024 11:46:00 Prostatitis Prostatitis Prostatitis is swelling [...] Follow these instructions at home: Medicines Take prtu-hss-lcngpbk and prescription medicines only as told by [...] important. Where to find more information [place] of Diabetes and Digestive and Kidney Diseases: [...] depends on the type of prostatitis. Take jpqt-nds-ujkneni and prescription medicines only as told by [...] provider. Document Revised: 03/29/2023 Document Reviewed: 03/29/2023 [employer] Patient Education 2023 [employer]. Follow Up Care 03/06/2024 09:43:54 With:ADRIÁN DELACRUZ, SU Esquivel, URL Address: [address] [place], [place] [address] [address] When: Unknown Comments:f/u in 2 weeks w/ PSA and PVR [facility] [place] [id number] NotePatient Education Infectious Disease Prostatitis Prostatitis is [...] these instructions at home: Medicines ??? Take igpd-zgn-hrphzdc and prescription medicines only as told by [...] provider. This is important. (more content not included)...[facility]10-30-20[facility] History of Present illness Narrative* Sera [...] HISTORY: Past Medical History: Diagnosis Date Asthma ([facility]) BPH (benign prostatic hyperplasia) CAD (coronary artery disease) ([facility]) COPD (chronic obstructive pulmonary disease) ([facility]) Emphysema, unspecified ([facility]/HCC) Hypercholesterolemia ([facility]/HCC) Hypertensive heart disease ([facility]) SURGICAL HISTORY: Past Surgical History: [...] 50 MCG/ACT nasal spray 2 sprays, Daily Wlxuhbeujil-Uecqbkzyp-Nhitwz (Trelegy Ellipta) 100-62.5-25 MCG/ACT aerosol powder 1 [...] or concerns. 3. Coronary artery disease involving algaaciq coronary artery of algaaciq heart without angina pectoris(CMS/HCC) Doing well. Denies [...] evaluation may be necessary. documented in this encounterMercy hospital [id number] History of Present illness Narrative* Sally Ba, BANKING ANALYST - 02/27/2024 10:45 AM EDT Images from the original note were not included. Demarcus Calderon is a 69 y.o. male presents with chief complaint of Hospital Follow-up ([facility] dx: sepsis, COPD, pneumonia) HPI: Patient presented to [facility] ER with complaints of shortness of breath, productive cough and wheezing. CXR showed right lower lobe and middle lobe pneumonia. He was prescribed Prednisone and Cefdinir. He reports to be feeling much better. He does have follow-up scheduled with Dr. Morgan, community organization aide, in April. History of Present Illness The [...] Flowsheet Row Patient Outreach from 02/21/2024 in [facility] with Tootie Jacobson RN Hospital Information Diagnosis Pneumonia, HTN, CHF, Benign prostate hyperplasia without urinary symptoms. Discharged To: Home Setting Discharge Hospital [facility] Engagement Admission Date 02/17/24 Medications Discharge [...] HISTORY: Past Medical History: Diagnosis Date Asthma ([facility]) BPH (benign prostatic hyperplasia) CAD (coronary artery disease) ([facility]) COPD (chronic obstructive pulmonary disease) ([facility]) Emphysema, unspecified ([facility]) Hypercholesterolemia ([facility]) Hypertensive heart disease ([facility]) SURGICAL HISTORY: Past Surgical History: [...] nasal spray 2 sprays, Each Nostril, Daily Asbpjkzmtyp-Ypqwabkym-Mvyjww (Trelegy Ellipta) 100-62.5-25 MCG/ACT aerosol powder 1 [...] - Basic metabolic panel 4. Essential hypertension ([facility]/HCC) Doing well. Blood pressures have been good. Continue lifestyle modifications. Continue current medication. Call if any problems or if home blood pressures rising. - Basic metabolic panel 5. Chronic systolic congestive heart failure ([facility]/HCC) It was felt pt had volume overload due to IVF. He is using Lasix intermittently. Denies problems with SOB, COYNE, or increased edema with weight gain. Continue current medication regimen. Eat a heart healthy diet low in sodium. Monitor weights regularly and call if increased more than 5 pounds. Call immediately if any problems or concerns. 6. Coronary artery disease involving algaaciq coronary artery of algaaciq heart without angina pectoris([facility]) Doing well. Denies any anginal symptoms. Continue aggressive risk factor modification. Continue current medications. Call if any problems. 7. Gastroesophageal reflux disease without esophagitis Stable. Continue current regimen. 8. Benign prostatic hyperplasia without urinary obstruction Stable. Continue current regimen. - PSA, total and free documented in this encounterNOMS [id number] Note Gram Stain Evaluation This specimen is of good quality and is acceptable for routine [id number] NoteGRAM STAIN EVALUATIONbacterial culture.[facility] [id number] History of Present illness Narrative* Rene Cortez MD - 10/18/2023 9:30 AM EDT Subjective Demracus Calderon is a 68 y.o. male Chief Complaint Follow-up HPI Patient is in the office for follow-up for the problems noted below. He has had no cardiac events since he was last seen. Denies any angina or dyspnea. He retired few weeks ago and he continues to [facility]. Recent lab data from the [facility] were provided and reviewed with him. LDL [...] emphasis on low-calorie diet Rene Cortez MD, FACC Review of Systems All other [...] , Rfl: omega-3 fatty acids-fish oil (One-Per-Day Monitor-3) 684-1,200 mg capsule, Take as directed, Disp: [...] 3 Assessment/Plan 1. Coronary artery disease involving algaaciq coronary artery of algaaciq heart without angina pectorisFollow Up In Cardiology [...] exam, discussion and plan. documented in this [facility] Work Phone: 1(326) 459-368805-23-2024 Instructions* Patient Instructions* Ana Cunningham LPN - [...] Follow up 6 months documented in this [facility] Work Phone: 1(885) 203-188502-03-2024 History of Present illness Narrative* Hosea Snyder, DO - 06/30/2023 10:05 AM EST HPI: Historian [...] day x 3 days documented in this encounterMer[facility] [id number] History of Present illness Narrative* Rene Cortez [...] emphasis on low-calorie diet Rene Cortez MD, [facility] Review of Systems All other systems [...] , Rfl: cholecalciferol (Vitamin D-3) 50 MCG (1999 [place]) [...] , Rfl: omega-3 fatty acids-fish oil (One-Per-Day Monitor-3) 684-1,200 mg capsule, Take as directed, Disp: [...] Rfl: Assessment/Plan 1. Coronary artery disease involving algaaciq coronary artery of algaaciq heart without angina pectorisFollow Up In Cardiology [...] Aspartate Aminotransferase Alanine Aminotransferase documented in this [facility] Work Phone: 1(125) 370-121610-27-2023 Instructions* Patient Instructions* Millie Hoffmann CMA - [...] time of your visit. documented in this [facility] Work Phone: 1(975) 478-606706-20-2023 NoteHNO ID: [id number] Author: Deandra Bender MD Service: ? Author [...] or facial palsy H/o Botox injections in [place]-->didn't help No h/o trauma H/o sinus surgery [...] can I get the FL-41 filter? Any [facility] location, (with an optical shop), throughout [place], Email: [email or web address] [employer] in [place], [place], [facility] in [place], [place], [facility] in [place], [place], [facility] in [place], [place], www.[employer] F/u Botulinum toxin 3 months, Botulinum toxin [...] Deandra Bender MD, November 14, 2022 10:00 AM.[facility]06-20-2023 History of Present illness Narrative* Deandra Bender MD - 11/14/2022 10:00 AM EDT Here for botox Right eye just started twitching Tears as needed. -rofPatient still having twitching right eye and occasionally the left. Refresh tears four times a day. -rof A/P: Right hemifacial spasm x 2 years Patient doesn't remember h/o bells or facial palsy H/o Botox injections in [place]-->didn't help No h/o trauma H/o sinus surgery [...] can I get the FL-41 filter? Any [facility] location, (with an optical shop), throughout [place], Email: [email or web address] [employer] in [place], [place], [employer] in [place], [place], [facility] in [place], [place], [employer] in [place], [place], [phone] www.[employer] F/u Botulinum toxin 3 months, Botulinum toxin [...] 10:00 AM. documented in this encounterK[facility]03-14-2023 NoteHNO ID: [id number] Author: Deandra Bender MD Service: ? Author Type: Physician Type: Progress Notes Filed: 08/08/2022 3:09 PM Note Text: Patient still having twitching right eye and occasionally the left. Refresh tears four times a day. -rof A/P: Right hemifacial spasm x 2 years Patient doesn't remember h/o bells or facial palsy H/o Botox injections in [place]-->didn't help No h/o trauma H/o sinus surgery [...] Deandra Bender MD, August 08, 2022 3:05 PM.[facility]03-14-2023 History of Present illness Narrative* Deandra Bedner MD - 08/08/2022 3:45 PM EDT Patient still having twitching right eye and occasionally the left. Refresh tears four times a day. -rof A/P: Right hemifacial spasm x 2 years Patient doesn't remember h/o bells or facial palsy H/o Botox injections in [place]-->didn't help No h/o trauma H/o sinus surgery [...] 3:05 PM. documented in this encounterKettering Health [facility] Center03-14-2023 Instructions* Patient Instructions* Deandra Bender MD - [...] next visit documented in this encounterKettering [facility] Behavioral [facility] Center01-25-2023 Miscellaneous Notes* Telephone Encounter - Orquidea Davis [facility] - 06/21/2022 2:03 PM EST Notes and MRI orders faxed to [facility]. Electronically signed by Orquidea Davis [facility] at 06/21/2022 2:03 PM EST * Telephone Encounter - Delores Mccollum - 06/21/2022 12:50 PM EST [facility] called today. : 1955 Allergies: Codeine, Codeine-Guaifenesin, and Guaifenesin (home) [phone] (cell) Reason for call: Sasha F:[phone] Asking for the MRI orders and office notes to be faxed over to [facility]. Patient will be having them done there. Patient last appointment: Visit date not found The patients preferred pharmacy has been captured for this encounter? not asked Deloresguankaito Mccollum documented in this encounterKettering Health Behavioral [facility] Center01-25-2023 NoteHNO ID: [id number] Author: Deandra Bender MD Service: ? Author Type: Physician Type: Progress Notes Filed: 06/21/2022 9:08 AM Note Text: Twitching right eye x two years. Both upper and lower lid. Trouble reading because of it. +tearing and burning. Refresh four times a day. -rof A/P: Right hemifacial spasm x 2 years Patient doesn't remember h/o bells or facial palsy H/o Botox injections in [place]-->didn't help No h/o trauma H/o sinus surgery [...] Deandra Bender MD, June 21, 2022 9:05 AM.[facility]01-25-2023 Instructions* Patient Instructions* Deandra Bender MD - [...] get MRI documented in this encounterKettering Health Behavioral [facility] Center01-25-2023 History of Present illness Narrative* Deandar Bender MD - 06/21/2022 9:00 AM EST Twitching right eye x two years. Both upper and lower lid. Trouble reading because of it. +tearing and burning. Refresh four times a day. -rof A/P: Right hemifacial spasm x 2 years Patient doesn't remember h/o bells or facial palsy H/o Botox injections in [place]-->didn't help No h/o trauma H/o sinus surgery [...] 21, 2022 9:05 AM. documented in this encounterCleveland [id number] NoteHNO ID: [id number] Author: Mau Randle OD Service: ? Author Type: PRINCIPAL PLANNER Type: Progress Notes Filed: 05/01/2022 9:22 AM [...] all of its relevant components. Mau Randle, LATASHAVeter[facility]12-05-2022 History of Present illness Narrative* Mau Randle [...] Randle OD documented in this encounterKettering Health Behavioral [place] [address] Discharge Summary Signed Patient: Demarcus Calderon MR#: [id number] : 1955 Acct:[id number] Age/Sex: 69 / M Adm Date: 5 Loc: Room: [address] [place] [address]: Vincenzo Caraballo DO Copies to: MD Vincenzo Sam, DO~ Providers Date of Admission: 10/16/24 Date of Discharge: 10/17/24 Discharging Provider: Vincenzo Caraballo Primary Care Provider: Sera Flower Consults: 10/16/24 23:19 Consult to Cardiology Routine Comment: Consulting Provider: [facility] Reason For Exam: acute on chronic systolic chf Has Provider Been Notified: Yes Date of Notification: 10/16/24 Time of Notification: 23:39 Extended Comment: [facility] answering service called consult. Discharge Diagnosis (1) Acute hypoxic respiratory failure: (2) Community acquired pneumonia: (3) Acute on chronic systolic (congestive) heart failure: (4) History of heart artery stent: (5) ASHD (arteriosclerotic heart disease): Final Diagnosis Final Discharge Diagnosis: as above Summary Hospital Course Hospital course: Mr Calderon is a 69-year-old male who was transferred to our hospital from the hospital on the eveningof October 16 for chief complaint of newly diagnosed CHF with reduced ejection fraction which is likelydue to ischemia. He had been at [facility] approximately 6 to 7 days for fluid overload and pneumonia. He completed treatment of pneumonia. Upon arrival here he was doing well on 1 L nasal cannula, he was made n.p.o., cardiology was consulted and notified of thisconsult. He was taken to the Display [facility]ist the afternoon of the , please see cardiac catheterization notes for details on that. He was noted to have an occluded ramus branch from the LAD, severe LV dysfunction with a EF 20% and occluded PLV branch. He was recommended to initiate GDMT including Entresto, spironolactone, loop diuretic, SGLT2 inhibitor and also continue him on Coreg. He is mentating well started post-cath, he tolerated them well his blood pressure was okay. Were able to titrate his oxygen off completely after furt herdoses of IV Lasix, A1c performed and showed he did not need any further some oxygen at rest or with ambulation. He was discharged the hospital the afternoonof October 17 when cleared by cardiology andhe received prescriptions for the previously mentioned GDMT for his heart. He will have close follow-up in the outpatient cardiology office. 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 1. You were given conscious sedation. Do not operate a vehicle, power tools, make important decisions, or drink alcohol for 24 hours. You might be drowsy orlight headed. Return to the Emergency Room if you have trouble breathing, walking or nausea and vomiting. 2. FOR BLEEDING: Apply continuous pressure to the site and call 911. 3. Operative Site Care: Keep the dressing clean and dry. You may change the dressing only if soiledor wet. You may remove the dressing the following morning. You may wash over the puncture site in the shower. If the puncture site is at the wrist no soaking for 3 days. Some bruising or slight swelling may be present. -Signs of infection are redness, warmth, swelling, getting more sore, colored drainage, fever or chills. -Should the arm or leg become cold, numb, blue or white, call the master cook immediately. 4. ACTIVITY: You are advised to go directly home from the hospital. Restrict your activities for the rest of the day. Resume light or normal activities tomorrow. Do not engage in any activity that will stress the puncture site. Avoid heavy lifting (over 15 lbs.), straining or bending at the catheter site for 48 hours after discharge. If the puncture site is at the wrist do not manipulate wrist for 24 hours and no lifting more than 3 lbs for 3 days. 5. DIET:You may eat your regular diet when you desire. 6. MEDICATIONS: Resume your daily prescription schedule. Prescriptions may be sent with you if needed. Use as directed. When taking pain medications, you may experience dizziness or drowsiness. Do not drink alcohol or drive when taking pain medications. 7. If you should experience episodes of angina e.g. chest discomfort, heaviness, tightness, pressure, burning, with or without radiation to the neck, jaws, arms, or back- Use 1 Nitrostat under your tongue every 5-10 minutes, and up to 3 tablets. If no relief- Call 911 and go to the nearest Emergency Room. -Notify the office for recurrent angina, chest pain or other concerns. You may NOT drive yourself home! Follow the medication instructions provided on your discharge. If the dosages and instructions on this sheet differ from the dosage and instructions on the bottle, follow the instructions on the bottle. [facility] is not responsible for incorrect prescription information provided by thepatient during their visit. Do not stop your medications without consulting your health care provider. Please take the list with you to your next doctor's appointment. Instructions: Heart failure in adults - Discharge instructions, Know your Meds Prescriptions: New dapagliflozin propanediol 10 mg Tablet 10 mg PO DAILY Qty: 30 2RF spironolactone 25 mg Tablet 12.5 mg PO DAILY 30 Days Qty: 15 2RF Entresto 24-26 mg Tablet 1 tab PO BID 30 Days Qty: 60 2RF Continued benzonatate 200 mg capsule 200 mg PO TID PRN (Reason: cough) Qty: 14 0RF montelukast 10 mg tablet 10 mg PO DAILY fluticasone propionate 50 mcg/actuation spray,suspension 2 spray INTRANASAL DAILY albuterol sulfate 90 mcg/actuation HFA aerosol inhaler 2 inh INHALATION Q6HR PRN (Reason: shortness of breath or wheezing) Rx Instructions: FreeTextSi puffs as needed Inhalation every 6 hrs; Note: Source Status: Continueprn; Provider: Jn Bolton ( ) ipratropium-albuterol 0.5 mg-3 mg(2.5 mg base)/3 mL solution for nebulization 3 ml INHALATION Q6HR PRN (Reason: shortness of breath or wheezing) Rx Instructions: FreeTextSi ml Inhalation every 6 hrs; Note: Source Status: Continueprn; Provider: Jn Bolton ( ) cetirizine 10 mg tablet 10 mg PO DAILY furosemide 40 mg tablet 40 mg PO DAILY fluticasone propion-salmeterol [Advair HFA] 115-21 mcg/actuation HFA aerosol inhaler 2 puff INHALATION BID carvedilol 12.5 mg tablet 12.5 mg PO BID Patient Comments: tamsulosin 0.4 mg capsule 0.8 mg PO QHS Patient Comments: omeprazole 20 mg capsule,delayed release(DR/EC) 20 mg PO DAILY Patient Comments: Follow Up: Sera Flower MD [Primary Care Provider] - (Call office on Sunday to schedule follow-up with your Primary Care Provider within 3-5 days of discharge. ) Kiya Richmond APRN [Nurse Practitioner] - 10/24/24 10:00 am (Follow-up with Cardiology) Continuity of Care Document Health Concerns: A [facility] screening has identified you as FRAIL or AT RISK FOR FRAILTY. This puts you at a higher risk for infection, illness, falls,and other injuries. Here are four ways to help you reduce your risk of frailty: 1. IDENTIFY EARLY SIGNS OF FRAILTY ? Discuss contributing factors and concerns with your doctor 2. BE ACTIVE ? Walking and light strengthening exercises will help reduce weakness 3. EAT WELL ? Aim for three healthy meals a day that are high in protein 4. THINKPOSITIVE ? Keep your mind active by being sociable and continuing to learn References: Stay Strong:Four Ways to Beat the Frailty Risk https://www.[facility].org/health/xodswnzg-dmq-glpjytqzvo/st re-iuvwhi-vywy- pgtc-kh-hkfo-swi-xlthyny-bunf Exam Physical Exam Vital Signs: Temp Pulse Resp BP Pulse Ox O2 Del Method O2 Flow Rate 97.9 F 75 18 100/65 94 L Room Air 2 10/18/24 12:00 10/18/24 13:00 10/18/24 13:00 10/18/24 13:00 10/18/24 13:00 10/18/24 13:00 10/18/24 09:00 Narrative: General: Awake alert, no acute distress HEENT: head atraumatic, normocephalic, moist mucous membranes Neck: supple no masses, no lymphadenopathy CVS: regular rate and rhythm, no murmurs or gallops Respiratory: clear to auscultation bilaterally, no wheezing or crackles, symmetric expansion GI: soft, nondistended, nontender, positive bowel sounds with no organomegaly Extremity: moves all extremities, no restrictions of movements, no calf tenderness, no edema Neuro: AOx3, CN II-VII intact. Moves all extremities in all planes of motion. Skin: dry, intact no rashes or lesions Documented By: Vincenzo Caraballo DO 10/19/241402 Signed By: 10/19/24 1407 [facility] Vincenzo Caraballo [facility] Note Date/Time October 19, 2024 2:07p [facility] ENTER [address] [place] [address] Discharge Summary Signed Patient: Demarcus Calderon MR#: [id number] : 1955 Acct:[id number] Age/Sex: 69 / M Adm Date: 5 Loc: 4 Room: [address] [place] [address]: Vincenzo Caraballo DO Copies to: MD Vincenzo aSm DO~ Providers Date of Admission: 10/16/24 Date of Discharge: 10/17/24 Discharging Provider: Vincenzo Caraballo Primary Care Provider: Sera Flower Consults: 10/16/24 23:19 Consult to Cardiology Routine Comment: Consulting Provider: [facility] Reason For Exam: acute on chronic systolic chf Has Provider Been Notified: Yes Date of Notification: 10/16/24 Time of Notification: 23:39 Extended Comment: [facility] answering service called consult. Discharge Diagnosis (1) Acute hypoxic respiratory failure: (2) Community acquired pneumonia: (3) Acute on chronic systolic (congestive) heart failure: (4) History of heart artery stent: (5) ASHD (arteriosclerotic heart disease): Final Diagnosis Final Discharge Diagnosis: as above Summary Hospital Course Hospital course: Mr Calderon is a 69-year-old male who was transferred to our hospital from the hospital on the evening of October 16 for chief complaint of newly diagnosed CHF with reduced ejection fraction which is likely due to ischemia. He had been at [facility] approximately 6 to 7 days for fluid overload and pneumonia. He completed treatment of pneumonia. Upon arrival here he was doing well on 1 L nasal cannula, he was made n.p.o., cardiology was consulted and notified of thisconsult. He was taken to the Display Specialist the afternoon of the , please see cardiac catheterization notes for details on that. He was noted to have an occluded ramus branch from the LAD, severe LV dysfunction with a EF 20% and occluded PLV branch. He was recommended to initiate GDMT including Entresto, spironolactone, loop diuretic, SGLT2 inhibitor and also continue him on Coreg. He is mentating well started post-cath, he tolerated them well his blood pressure was okay. Were able to titrate his oxygen off completely after furtherdoses of IV Lasix, A1c performed and showed he did not need any further some oxygen at rest or with ambulation. He was discharged the hospital the afternoonof October 17 when cleared by cardiology and he received prescriptions for the previously mentioned GDMT for his heart. He will have close follow-up in the outpatient cardiology office. 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 1. You were given conscious sedation. Do not operate a vehicle, power tools, make important decisions, or drink alcohol for 24 hours. You might be drowsy orlight headed. Return to the Emergency Room if you have trouble breathing, walking or nausea and vomiting. 2. FOR BLEEDING: Apply continuous pressure to the site and call 911. 3. Operative Site Care: Keep the dressing clean and dry. You may change the dressing only if soiled or wet. You may remove the dressing the following morning. You may wash over the puncture site in the shower. If the puncture site is at the wrist no soaking for 3 days. Some bruising or slight swelling may be present. -Signs of infection are redness, warmth, swelling, getting more sore, colored drainage, fever or chills. -Should the arm or leg become cold, numb, blue or white, call the master cook immediately. 4. ACTIVITY: You are advised to go directly home from the hospital. Restrict your activities for the rest of the day. Resume light or normal activities tomorrow. Do not engage in any activity that will stress the puncture site. Avoid heavy lifting (over 15 lbs.), straining or bending at the catheter site for 48 hours after discharge. If the puncture site is at the wrist do not manipulate wrist for 24 hours and no lifting more than 3 lbs for 3 days. 5. DIET:You may eat your regular diet when you desire. 6. MEDICATIONS: Resume your daily prescription schedule. Prescriptions may be sent with you if needed. Use as directed. When taking pain medications, you may experience dizziness or drowsiness. Do not drink alcohol or drive when taking pain medications. 7. If you should experience episodes of angina e.g. chest discomfort, heaviness, tightness, pressure, burning, with or without radiation to the neck, jaws, arms, or back- Use 1 Nitrostat under your tongue every 5-10 minutes, and up to 3 tablets. If no relief- Call 911 and go to the nearest Emergency Room. -Notify the office for recurrent angina, chest pain or other concerns. You may NOT drive yourself home! Follow the medication instructions provided on your discharge. If the dosages and instructions on this sheet differ from the dosage and instructions on the bottle, follow the instructions on the bottle. [facility] is not responsible for incorrect prescription information provided by thepatient during their visit. Do not stop your medications without consulting your health care provider. Please take the list with you to your next doctor's appointment. Instructions: Heart failure in adults - Discharge instructions, Know your Meds Prescriptions: New dapagliflozin propanediol 10 mg Tablet 10 mg PO DAILY Qty: 30 2RF spironolactone 25 mg Tablet 12.5 mg PO DAILY 30 Days Qty: 15 2RF Entresto 24-26 mg Tablet 1 tab PO BID 30 Days Qty: 60 2RF Continued benzonatate 200 mg capsule 200 mg PO TID PRN (Reason: cough) Qty: 14 0RF montelukast 10 mg tablet 10 mg PO DAILY fluticasone propionate 50 mcg/actuation spray,suspension 2 spray INTRANASAL DAILY albuterol sulfate 90 mcg/actuation HFA aerosol inhaler 2 inh INHALATION Q6HR PRN (Reason: shortness of breath or wheezing) Rx Instructions: FreeTextSi puffs as needed Inhalation every 6 hrs; Note: Source Status: Continueprn; Provider: Jn Bolton ( ) ipratropium-albuterol 0.5 mg-3 mg(2.5 mg base)/3 mL solution for nebulization 3 ml INHALATION Q6HR PRN (Reason: shortness of breath or wheezing) Rx Instructions: FreeTextSi ml Inhalation every 6 hrs; Note: Source Status: Continueprn; Provider: Jn Bolton ( ) cetirizine 10 mg tablet 10 mg PO DAILY furosemide 40 mg tablet 40 mg PO DAILY fluticasone propion-salmeterol [Advair HFA] 115-21 mcg/actuation HFA aerosol inhaler 2 puff INHALATION BID carvedilol 12.5 mg tablet 12.5 mg PO BID Patient Comments: tamsulosin 0.4 mg capsule 0.8 mg PO QHS Patient Comments: omeprazole 20 mg capsule,delayed release(DR/EC) 20 mg PO DAILY Patient Comments: Follow Up: Sera Flower MD [Primary Care Provider] - (Call office on Sunday to schedule follow-up with your Primary Care Provider within 3-5 days of discharge. ) Kiya Richmond APRN [Nurse Practitioner] - 10/24/24 10:00 am (Follow-up with Cardiology) Continuity of Care Document Health Concerns: A [facility] screening has identified you as FRAIL or AT RISK FOR FRAILTY. This puts you at a higher risk for infection, illness, falls,and other injuries. Here are four ways to help you reduce your risk of frailty: 1. IDENTIFY EARLY SIGNS OF FRAILTY ? Discuss contributing factors and concerns with your doctor 2. BE ACTIVE ? Walking and light strengthening exercises will help reduce weakness 3. EAT WELL ? Aim for three healthy meals a day that are high in protein 4. THINK POSITIVE ? Keep your mind active by being sociable and continuing to learn References: Stay Strong: Four Ways to Beat the Frailty Risk https://www.[facility].org/health/wtupusmf-jcd-nhjeoxkjmh/bzpm-nzmssi-qyse- zagl-kl-sfbl-ukz-wvroagm-zjqd Exam Physical Exam Vital Signs: Temp Pulse Resp BP Pulse Ox O2 Del Method O2 Flow Rate 97.9 F 75 18 100/65 94 L Room Air 2 10/18/24 12:00 10/18/24 13:10/18/24 13:10/18/24 13:10/18/24 13:10/18/24 13:10/18/24 09:00 Narrative: General: Awake alert, no acute distress HEENT: head atraumatic, normocephalic, moist mucous membranes Neck: supple no masses, no lymphadenopathy CVS: regular rate and rhythm, no murmurs or gallops Respiratory: clear to auscultation bilaterally, no wheezing or crackles, symmetric expansion GI: soft, nondistended, nontender, positive bowel sounds with no organomegaly Extremity: moves all extremities, no restrictions of movements, no calf tenderness, no edema Neuro: AOx3, CN II-VII intact. Moves all extremities in all planes of motion. Skin: dry, intact no rashes or lesions Documented By: Vincenzo Caraballo DO 10/19/24 1403 Signed By: <Electronically signed by Vincenzo Caraballo DO> 10/19/24 1407 [facility] Work Phone: Evaluation + Plan note Future Appointments Appointment Date:04/25/2024 08:30:00 AM Scheduled Provider: Location:[facility] Appointment Type:URO Nurse Visit Appointment Date:04/28/2024 11:20:00 AM Scheduled Provider:SU COOK PA-C Location:[facility] Appointment Type:URO Office Visit [facility] Evaluation + Plan note Future Appointments Appointment Date:04/28/2024 11:20:00 AM Scheduled Provider:SU COOK PA-C Location:[facility] Appointment Type:URO Office Visit [facility] Evaluation + Plan note Future Appointments Appointment Date:06/23/2024 03:00:00 PM Scheduled Provider:John BAPTISTE MD Location:[facility] Appointment Type:URO Procedure 15 min [facility] evaluation + Plan note Future Appointments Appointment Date:08/13/2024 12:00:00 PM Scheduled Provider: Location:[facility] Appointment Type:Urology CALL PAT FT Appointment Date:08/14/2024 01:30:00 PM Scheduled Provider: Location:[facility] Appointment Type:Urology FT [facility] Evaluation + Plan note Future Appointments Appointment Date:06/02/2025 09:30:00 AM Scheduled Provider: Location:[facility] Appointment Type:URO Nurse Visit Appointment Date:06/09/2025 09:45:00 AM Scheduled Provider:John BAPTISTE MD [facility] Appointment Type:URO Office Visit Future Scheduled Tests Laboratory* PSA Free & Total 06/04/25 [facility] evaluation note* Diagnosis Eyelid myokymia- Primary Other facial nerve disorders Dry eye syndrome of both eyes Hyperopia of both eyes with astigmatism and presbyopia documented in this encounter [facility] note* Diagnosis Clonic hemifacial spasm, right- Primary Paralytic strabismus Paralytic strabismus, 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 [facility] Clonic hemifacial spasm, right- Primary [facility] Diagnosis Clonic hemifacial spasm, right- Primary [facility] noteNo assessment information availableMag[facility] Work Phone: Evaluation note* Diagnosis Coronary artery disease involving algaaciq coronary artery of algaaciq heart without angina pectoris Essential hypertension Unspecified essential hypertension Mixed hyperlipidemia Ischemic cardiomyopathy Other specified forms of chronic ischemic heart disease Status post coronary artery stent placement Postsurgical percutaneous transluminal coronary angioplasty status Class 2 obesity with body mass index (BMI) of 35.0 to 35.9 in adult, unspecified obesity type, unspecified whether serious comorbidity present documented in this encounter [facility] Work Phone: Evaluation note* Diagnosis Acute exacerbation of chronic obstructive pulmonary disease (CMS/HCC)- Primary Obstructive chronic bronchitis with exacerbation documented in this encounter [facility]* Diagnosis Coronary artery disease involving algaaciq coronary artery of algaaciq heart without angina pectoris- Primary Essential hypertension [...] hazards to health documented in this encounter [facility] Work Phone: Evaluation note* Diagnosis Sepsis, due to unspecified organism, unspecified whether acute organ dysfunction present (CMS/HCC)- Primary Pneumonia of right middle lobe due to infectious organism Hyponatremia Hyposmolality and/or hyponatremia Essential hypertension (CMS/HCC) Unspecified essential hypertension Chronic systolic congestive heart failure (CMS/HCC) Coronary artery disease involving algaaciq coronary artery of algaaciq heart without angina pectoris (CMS/HCC) Gastroesophageal reflux disease without esophagitis Esophageal reflux Benign prostatic hyperplasia without urinary obstruction documented in this encounter [facility]* Diagnosis Essential hypertension (CMS/HCC)- Primary Unspecified essential hypertension Chronic systolic congestive heart failure (CMS/HCC) Coronary artery disease involving algaaciq coronary artery of algaaciq heart without angina pectoris (CMS/HCC) Chronic obstructive [...] HealthcareEvaluation note* Diagnosis Coronary artery disease involving algaaciq coronary artery of algaaciq heart without angina pectoris- Primary Essential hypertension Unspecified essential hypertension Ischemic cardiomyopathy Other specified forms of chronic ischemic heart disease Mixed hyperlipidemia Status post coronary artery stent placement Postsurgical percutaneous transluminal coronary angioplasty status Former smoker Personal history of tobacco use, presenting hazards to health BMI 36.0-36.9,adult Class 2 obesity documented in this encounter [facility] Work Phone: Evaluation note* Diagnosis Chronic obstructive pulmonary disease, unspecified COPD type (CMS/HCC)- Primary Bronchiectasis without complication (CMS/HCC) Rash Rash and other nonspecific skin eruption [...] hypertension (CMS/HCC) Unspecified essential hypertension Pure hypercholesterolemia (CMS/HCC) Pure hypercholesterolemia Chronic systolic (congestive) heart failure Prediabetes Other abnormal glucose Coronary artery disease involving algaaciq coronary artery of algaaciq heart without angina pectoris (CMS/HCC) Severe persistent asthma, uncomplicated (CMS/HCC) Elevated PSA Elevated prostate specific antigen (PSA) BMI 36.0-36.9,adult Morbid (severe) obesity due to excess calories (CMS/HCC) Medicare annual wellness visit, subsequent ACP (advance care planning) Other specified counseling documented in this encounter [facility]* Diagnosis BMI 33.0-33.9,adult- Primary Ischemic cardiomyopathy Other specified forms of chronic ischemic heart disease documented in this encounter [facility] Work Phone: Hospital course Narrative No data available for this section [facility] Hospital Discharge instructions Additional Instructions If your symptoms return/worsen or you develop any further concerns or symptoms please see your doctor or return to the emergency department immediately.[facility] Work Phone: Hospital Discharge instructions No data available for this section [facility] Hospital Discharge instructions Additional Instructions 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 1. You were given conscious sedation. Do not operate a vehicle, power tools, make important decisions, or drink alcohol for 24 hours. You might be drowsy or light headed. Return to the Emergency Room if you have trouble breathing, walking or nausea and vomiting. 2. FOR BLEEDING: Apply continuous pressure to the site and call 911. 3. Operative Site Care: Keep the dressing clean and dry. You may change the dressing only if soiled or wet. You may remove the dressing the following morning. You may wash over the puncture site in the shower. If the puncture site is at the wrist no soaking for 3 days. Some bruising or slight swelling may be present. -Signs of infection are redness, warmth, swelling, getting more sore, colored drainage, fever or chills. -Should the arm or leg become cold, numb, blue or white, call the master cook immediately. 4. ACTIVITY: You are advised to go directly home from the hospital. Restrict your activities for the rest of the day. Resume light or normal activities tomorrow. Do not engage in any activity that will stress the puncture site. Avoid heavy lifting (over 15 lbs.), straining or bending at the catheter site for 48 hours after discharge. If the puncture site is at the wrist do not manipulate wrist for 24 hours and no lifting more than 3 lbs for 3 days. 5. DIET:You may eat your regular diet when you desire. 6. MEDICATIONS: Resume your daily prescription schedule. Prescriptions may be sent with you if needed. Use as directed. When taking pain medications, you may experience dizziness or drowsiness. Do not drink alcohol or drive when taking pain medications. 7. If you should experience episodes of angina e.g. chest discomfort, heaviness, tightness, pressure, burning, with or without radiation to the neck, jaws, arms, or back- Use 1 Nitrostat under your tongue every 5-10 minutes, and up to 3 tablets. If no relief- Call 911 and go to the nearest Emergency Room. -Notify the office for recurrent angina, chest pain or other concerns. You may NOT drive yourself home! Follow the medication instructions provided on your discharge. If the dosages and instructions on this sheet differ from the dosage and instructions on the bottle, follow the instructions on the bottle. [facility] is not responsible for incorrect prescription information provided by the patient during their visit. Do not stop your medications without consulting your health care provider. Please take the list with you to your next doctor's appointment.[facility] Work Phone: Progress note No data available for this section [facility] Reason for referral (narrative)* Consultation (Routine) - Authorized Specialty Diagnoses / Procedures Referred By Contac t Referred To Contact Cardiology Diagnoses Coronary artery disease involving algaaciq coronary artery of algaaciq heart without angina pectoris Essential hypertension Mixed hyperlipidemia Ischemic cardiomyopathy Status post coronary artery stent placement Class 2 obesity with body mass index (BMI) of 35.0 to 35.9 in adult, unspecified obesity type, unspecified whether serious comorbidity present Procedures Follow Up In Cardiology Rene Cortez MD [address] [facility] 2, [address] [address] Rene Cortez MD [address] [place] [address] Referral ID Status Reason Start Date Expiration Date V isits Requested Visits Authorized [id number] Authorized 03/23/2023 03/22/2024 1 1 [facility] Work Phone: Reason for referral (narrative)* Consultation (Routine) - Authorized Specialty Diagnoses / Procedures Referred By Bryon hernanedz Referred To Contact Cardiology Diagnoses Coronary artery disease involving algaaciq coronary artery of algaaciq heart without angina pectoris Procedures Follow Up In Cardiology Rene Cortez MD [address] [facility] 2, [address] [place] [address] Rene Cortez MD [address] [facility] 2, [address] [place] [address] Referral ID Status Reason Start Date Expiration Date V isits Requested Visits Authorized [id number] Authorized 10/18/2023 10/17/2024 [address] [facility] Work Phone: Chief Complaint * DEMARCUS [...] infarction with no ischemia. EF in the [id number]. He remains compensated as for ischemic cardiomyopathy. [...] on low-calorie diet * Rene Cortez MD, [facility] * DEMARCUS CALDERON is being seen for [...] on low-calorie diet * [facility] History No Family History Records FoundUnknown [...] Condition Age at Onset Recorded Date/T lemuel mother Alzheimer's disease Unknown Diabetes mellitus Unknown father Abdominal aortic aneurysm (AAA) Unknown son Heart disease Unknown brother Kidney disorder Unknown father Unknown mother Unknown son Coronary artery disease Unknown Unknown Reason for Referral Specialty Diagnoses / Procedures Referred By Bryon hernandez Referred To Contact MR IMAGING Diagnoses Jada's syndrome Procedures MRI SOFT TISSUE NECK WO/W IVCON MRI ORBIT FACE & NECK W/O & W/CONTRAST MATRL Deandra Bender MD [address] [place] [address] Mr Imaging Referral ID Status Reason Start Date Expiration Date Visits Requested Visits Authorized [id number] Pending Review Auto-Generat ed Referral 06/21/2022 07/21/2023 1 1 Specialty Diagnoses / Procedures Referred By Bryon hernandez Referred To Contact MR IMAGING Diagnoses Paralytic strabismus Procedures MRI BRAIN WO/W IVCON MRI BRAIN BRAIN STEM W/O W/CONTRAST MATERIAL Deandra Bender MD [address] [place] [address] Mr Imaging Referral ID Status Reason Start Date Expiration Date Visits Requested Visits Authorized [id number] Pending Review Auto-Generat ed Referral 06/21/2022 07/21/2023 1 1 Summary Purpose Advance Directives No Advanced Directives Records Found Advance Directive Response Recorded Date/ Time Advance Directives No September 19, 018 2:33pm Advance Directive Response Recorded Date/ Time Advance Directives No September 19, 018 1:33pm Chief Complaint and Reason for Visit Chief Complaint I10 I25.5 Chief Complaint cough sent by Chief Complaint Admit Date Congestive Heart Failure October 16, 2024 9:38pm Reason for Visit Admit Date Acute hypoxic respiratory failure October 162024 9:38pm Acute on chronic systolic (congestive) h eart failure October 16, 2024 9:38pm ASHD (arteriosclerotic heart disease) Latoya y 2024 9:38pm Community acquired pneumonia October 16, 2 025 9:38pm History of heart artery stent October 16, 2024 9:38pm Chief Complaint Admit Date Congestive Heart Failure October 16, 2024 9:38pm I25.5 October 31, 2024 7:58a m Reason for Visit Admit Date Acute hypoxic respiratory failure October 162024 9:38pm Acute on chronic systolic (congestive) h eart failure October 16, 2024 9:38pm Community acquired pneumonia October 16, 025 9:38pm ASHD (arteriosclerotic heart disease) Latoya y 2024 9:38pm History of heart artery stent October 16, 2024 9:38pm Chief Complaint Admit Date Congestive Heart Failure October 16, 2024 9:38pm I25.5 October 31, 2024 7:58a m I25.5 November 21, 2024 7:28 am Additional Source Comments Source Comments (unrecognize d section and content) In the event this informatio n is protected by the Federal Confidentiality of Alcohol and Drug Abuse Patient Records regulations: The Federal rules restrict any use of the information to criminally investigate or prosecute any alcohol or drug abuse patient.[facility] the event this information is protected by the Federal Confidentiality of Alcohol and Drug Abuse Patient Records regulations: The Federal rules restrict any use of the information to criminally investigate or prosecute any alcohol or drug abuse patient.[facility] CenterIn the event this information is protected by the Federal Confidentiality of Alcohol and Drug Abuse Patient Records regulations: The Federal rules restrict any use of the information to criminally investigate or prosecute any alcohol or drug abuse patient.[facility] CenterIn the event this information is protected by the Federal Confidentiality of Alcohol and Drug Abuse Patient Records regulations: The Federal rules restrict any use of the information to criminally investigate or prosecute any alcohol or drug abuse patient.[facility] CenterIn the event this information is protected by the Federal Confidentiality of Alcohol and Drug Abuse Patient Records regulations: The Federal rules restrict any use of the information to criminally investigate or prosecute any alcohol or drug abuse patient.[facility] Reason for Visit (unrecogniz ed section and [...] up to 100 units Procedures BOTOX EI [id number] [place] [address] [place] [address] Deandra Bender MD [address] [place] [address] Referral ID Status Reason Start Date Expiration Date V isits Requested Visits Authorized [id number] Authorized 11/14/2022 05/27/2023 99 99 Reason Comments Follow-up 6 months Reason Comments Follow-up 6m Specialty Diagnoses / Procedures Referred By Contac t Referred To Contact Cardiology Diagnoses Coronary artery disease involving algaaciq coronary artery of algaaciq heart without angina pectoris Essential hypertension Mixed hyperlipidemia Ischemic cardiomyopathy Status post coronary artery stent placement Class 2 obesity with body mass index (BMI) of 35.0 to 35.9 in adult, unspecified obesity type, unspecified whether serious comorbidity present Procedures Follow Up In Cardiology Rene Cortez MD [address] [facility] 2, [address] [address] Rene Cortez MD [address] [facility] [address], [address] [place] [address] Referral ID Status Reason Start Date Expiration Date V isits Requested Visits Authorized [id number] Authorized 03/23/2023 03/22/2024 1 1 Reason Comments Hospital Follow-up [facility] dx: sepsis, COPD, pneumonia Reason Comments 6 Month Follow-up Lab drawn 02/27/2024 . Cough Productive cough con tinues with yellow sputum. Occasional shortness of breath. CXR ordered on 02/26 to repeat in 8 weeks Reason Comments Earache Reason Comments Follow-up 6 month Specialty Diagnoses / Procedures Referred By Bryon t Referred To Contact Cardiology Diagnoses Coronary artery disease involving algaaciq coronary artery of algaaciq heart without angina pectoris Procedures Follow Up In Cardiology Rene Cortez MD [address] [place] [address] [address], [address] [address] Phone: tel: fax: Rene Cortez MD [address] [place] [address] 2, [facility] [address] [place] [address] Phone: tel: fax: Referral ID Status Reason Start Date Expiration Date V isits Requested Visits Authorized [id number] Authorized 10/18/2023 10/17/2024 1 1 Reason Comments ER Follow-up [facility] 06/29/2024 dx: COPD exacerbation 2ndry viral infection. He was prescribed Z-Santos, Prednisone and Mucinex. He does continue to have mucus. He is not using Mucinex, reports it does not work. Rash Right axilla Mass Mid back for 2-3 wee ks, painful, hard Reason Comments Suspicious Skin Lesion Rash Specialty Diagnoses / Procedures Referred By Bryon t Referred To Contact Dermatology Diagnoses Skin lesion of back Sebaceous cyst Procedures [place] OFFICE/OUTPATIENT [facility] 60 MINUTES Sally Ba NP [address] [place] [address] Phone: tel: fax: Marybeth Long MD [address] [place] [address] Phone: tel: fax: Referral ID Status Reason Start Date Expiration Date V isits Requested Visits Authorized [id number] Closed Consult and Treat 07/02/2024 12/29/2024 1 1 Reason Comments 6 Month Follow Up of Chronic Conditions Medicare Annual Wellness Visit Jacinda david ER Follow-up [facility] for CHF. He was advised to resume Lasix, which was discontinued in the past due to low sodium levels. Reason Comments Follow-up [facility] [place] low ef (unrecognized sect ion and content) No Status Records FoundNo Status Records FoundNo Status Records FoundNo Status Records FoundNo Status Records FoundNo Status Records FoundNo Status Records FoundNo Status Records FoundNo Status Records FoundNo Status Records FoundNo Status Records Found INFORMATION SOURCE (unrecogn ized section and content) DATE CREATED AUTHOR 07/16/2022 [facility] DATE CREATED AUTHOR AUTHOR'S ORGANIZ ATION 09/09/2022 [employer] DATE CREATED AUTHOR AUTHOR'S ORGANIZ ATION 11/14/2022 [facility] DATE CREATED AUTHOR AUTHOR'S ORGANIZ ATION 02/12/[address] [facility] ical Center DATE CREATED AUTHOR AUTHOR'S ORGANIZ ATION 02/28/2023 [facility] DATE CREATED AUTHOR AUTHOR'S ORGANIZ ATION 09/29/2024 [facility] EPIC DATE CREATED AUTHOR AUTHOR'S ORGANIZ ATION 11/26/2024 [facility] DATE CREATED AUTHOR AUTHOR'S ORGANIZ ATION 12/12/2024 [facility] DATE CREATED AUTHOR AUTHOR'S ORGANIZ ATION 12/15/2024 [facility] DATE CREATED AUTHOR AUTHOR'S ORGANIZ ATION 12/20/2024 [facility] DATE CREATED AUTHOR AUTHOR'S ORGANIZ ATION 02/05/2025 [facility] Care Teams (unrecognized sec tion and content) Team Status: Active Member Role Status Dates Sera Flower MD Primary Care Provider Active Team Status: Inactive Member Role Status Dates Sera Flower MD Primary Care Provider, Other Provider Active Rene Cortez MD Attending Provider Active Internet Technology Manager Relationship Specialty Start Date End Date Sera Flower MD [address] [place] [id number] PCP - General 02/16/21 Team Status: Inactive Member Role Status Dates Sera Flower MD Primary Care Provider Active St art: June 14, 2023 End: June 14, 2023 Jasper Martinez DO Emergency Provider Active Start: June 14, 2023 End: June 14, 2023 Internet Technology Manager Relationship Specialty Start Date End Date Sera Flower MD [address] [place] [address] PCP - Humana 05/28/22 Sera Flower MD [address] [place] [address] PCP - General Internal Medicine 10/03/22 Internet Technology Manager Relationship Specialty Start Date End Date Sera Flower MD [address] [place] [id number] PCP - General 02/16/21 Internet Technology Manager Relationship Specialty Start Date End Date Sera Flower MD [address] [place] [address] PCP - Humana 05/28/22 Sera Flower MD [address] [place] [address] PCP - General Internal Medicine 10/03/22 Tootie Jacobson, DOUG [address] [place] [address] Registered Nurse Internal Medicine 08/10/23 Rene Cortez MD [address] [facility] [address] [place] [address] Referring Physician Cardiology 09/05/23 Internet Technology Manager Relationship Specialty Start Date End Date Sera Flower MD [address] [place] [address] PCP - Humana 05/28/22 Sera Flower MD [address] [place] [address] PCP - General Internal Medicine 10/03/22 Tootie Jacobson, DOUG [address] [place] [address] Registered Nurse Internal Medicine 08/10/23 03/28/24 Rene Cortez MD [address] [place] [address] [address] [place] [address] Referring Physician Cardiology 09/05/23 Internet Technology Manager Relationship Specialty Start Date End Date Sera Flower MD [address] [place] [address] PCP - Humana 05/28/22 Sera Flower MD [address] [place] [address] PCP - General Internal Medicine 10/03/22 Rene Cortez MD [address] [place] [address] [address] [place] [address] Referring Physician Cardiology 09/05/23 Orquidea Carreon, RN Registered Nurse Family Medicine 03/28/24 Internet Technology Manager Relationship Specialty Start Date End Date Sera Flower MD [address] [place] [address] PCP - Humana 05/28/22 Sera Flower MD [address] [place] [address] PCP - General Internal Medicine 10/03/22 Tootie Jacobson RN [address] [place] [address] Registered Nurse Internal Medicine 08/10/23 Rene Cortez MD [address] [facility] [address] [place] [address] Referring Physician Cardiology 09/05/23 Internet Technology Manager Relationship Specialty Start Date End Date Sera Flower MD [address] [place] [address] PCP - Humana 05/28/22 Sera Flower MD [address] [place] [address] PCP - General Internal Medicine 10/03/22 Tootie Jacobson RN [address] [place] [address] Registered Nurse Internal Medicine 08/10/23 Rene Cortez MD [address] [facility] [address] [place] [address] Referring Physician Cardiology 09/05/23 Internet Technology Manager Relationship Specialty Start Date End Date Sera Flower MD [address] [place] [address] PCP - Humana 05/28/22 Sera Flower MD [address] [place] [address] PCP - General Internal Medicine 10/03/22 Tootie Jacobson RN [address] [place] [address] Registered Nurse Internal Medicine 08/10/23 Rene Cortez MD [address] [facility] [address] [place] [address] Referring Physician Cardiology 09/05/23 Internet Technology Manager Relationship Specialty Start Date End Date Sera Flower MD [address] [place] [address] PCP - General 02/16/21 Internet Technology Manager Relationship Specialty Start Date End Date Sera Flower MD [address] [place] [address] PCP - Humana 05/28/22 Sera Flower MD [address] [place] [address] PCP - General Internal Medicine 10/03/22 Rene Cortez MD [address] [facility] [address] [place] [address] Referring Physician Cardiology 09/05/23 Orquidea Shah RN Registered Nurse Internal Medicine 06/03/24 Internet Technology Manager Relationship Specialty Start Date End Date Sera Flower MD [address] [place] [address] PCP - Humana 05/28/22 Sera Flower MD [address] [place] [address] PCP - General Internal Medicine 10/03/22 Rene Cortez MD [address] [place] [address] Referring Physician Cardiology 09/05/23 Orquidea Shah, RN Registered Nurse Internal Medicine 06/03/24 Internet Technology Manager Relationship Specialty Start Date End Date Sera Flower MD [address] [place] [address] PCP - Humana 05/28/22 Sera Flower MD [address] [place] [address] PCP - General Internal Medicine 10/03/22 Rene Cortez MD [address] [facility] [address] [place] [address] Referring Physician Cardiology 09/05/23 [facility] Reg[facility] Nurse Internal Medicine 06/03/24 Internet Technology Manager Relationship Specialty Start Date End Date Sera Flower MD [address] [place] [address] PCP - Humana 05/28/22 Sera Flower MD [address] [place] [address] PCP - General Internal Medicine 10/03/22 Rene Cortez MD [address] [facility] [address] [place] [address] Referring Physician Cardiology 09/05/23 Orquidea Shah, RN Registered Nurse Internal Medicine 06/03/24 Evens Morgan MD [address] [place] [phone] Referring Physician Pulmonary Disease 09/24/24 John Baptiste MD [address] [place] [address] Referring Physician Urology 09/24/24 Gurjit Busby NP [address] [place] [address] Nurse Practitioner Family Medicine 09/24/24 [facility] Optometry 09/24/24 Team Status: Inactive Member Role Status Dates Sera Flower MD Primary Care Provider Active St art: October 16, 2024 End: October 18, 2024 Ricardo Aguero DO Admit Provider Active Start: October 16, 2024 End: October 18, 2024 Orquidea Sapp RN Other Provider Active Star t: October 16, 2024 End: October 18, 2024 Keila Davis DO Other Provider Active Start : October 16, 2024 End: October 18, 2024 Rene Cortez MD Other Provider Active Start: October 16, 2024 End: October 18, 2024 Tank Daley MD Other Provider Active Start: October 16, 2024 End: October 18, 2024 Charito Rodriguez MD Other Provider Active St art: October 16, 2024 End: October 18, 2024 Kannan Mendez MD Other Provider Active Start: October 16, 2024 End: October 18, 2024 Kiya Richmond APRN Other Provider Active Start : October 16, 2024 End: October 18, 2024 Katia Mckeon MD Other Provider Active Start: Charlotte sam 2024 End: October 18, 2024 Katie Dalton MD Other Provider Active Start: October 16, 2024 End: October 18, 2024 Mirian Huffman MD Other Provider Active Start: Charlotte sam 2024 End: October 18, 2024 Joanne Edouard , [facility]- Other Provider Active Sta rt: October 16, 2024 End: October 18, 2024 Vincenzo Caraballo DO Attending Provider Active St art: October 16, 2024 End: October 18, 2024 Internet Technology Manager Relationship Specialty Start Date End Date Rk Pate MD [address] [facility] [place] [address] PCP - General Family Medicine 10/24/24 Team Status: Active Member Role Status Dates Rk Pate MD Primary Care Provider Active Team Status: Inactive Member Role Status Dates Kiya Richmond APRN Attending Provider Active S tart: October 31, 2024 End: October 31, 2024 Rk Pate MD Primary Care Provider Active Start: October 31, 2024 End: October 31, 2024 Team Status: Inactive Member Role Status Dates Kiya Richmond APRN Attending Provider Active S tart: November 21, 2024 End: November 21, 2024 Rk Pate MD Primary Care Provider Active Start: November 21, 2024 End: November 21, 2024 Goals (unrecognized section and content) Goals may [...] BE BASED ON THE PRIMARY CLINICAL RECORDS. [employer] provides no warranty or guarantee of the accuracy or completeness of information in this document.
== END 2025-02-17 16:30 | disposition home or self-care (01) ==
PROVIDERS: Physician Assistant; Emergency Provider Emergency Medicine; PCP Family Medicine
DX: J44.1 Chronic obstructive pulmonary disease with (acute) exacerbation (principal); I50.9 Heart failure, unspecified; Z87.891 Personal history of nicotine dependence
CPT/HCPCS: 36415; 71046; 80048; 83605; 83880; 84484; 85025; 87804; 87811; 93005; 94640; 99285; J2919

== ENCOUNTER 2025-02-24 10:20 | Emergency (ER) | payer MEDICARE, OTHER, SELFPAY ==
--- OUTSIDE RECORDS SUMMARY | 2024-12-09 09:15 | XMS_ITS ---
Author Name Auto Generated Organization OHIP Care Team Providers Care Library Media Assistant Name Role Phone LUBA ORTEGA Attending Unavailable RENE CORTEZ Attending Unavailable RENE CORTEZ Referring Unavailable SERA HOBBS Primary Care Unavailable KIYA RICHMOND Attending Unavailable TORRES PATE Primary Care Unavailable Kiya Richmond Attending Unavailable Torres Pate Primary Care Unavailable Kiya Richmond Admitting Unavailable Kiya Richmond Attending Unavailable Torres Pate Primary Care Unavailable Kiya Richmond Admitting Unavailable Sera Hobbs Primary Care Unavailable Ricardo Aguero Admitting Unavailable Vincenzo Caraballo Attending Unavailable Orquidea Sapp Consulting Unavailable Oqruidea Sapp Consulting Unavailable Keila Davis Consulting Unavailable Rene Cortez Consulting Unavailable Tank Daley Consulting Unavail able Charito Rodriguez Consulting Unavailable Kannan Mendez Consulting Unavailab Kiya Bellamy Consulting Unavailable Katia Mckeon Consulting Unavailable Katie Dalton Consulting Unavailab Mirian Balderas Consulting Unavailable Joanne Edouard Consulting Unavailable Yasemin Peralta Attending Unavailable John BAPTISTE Attending Unavailable John BAPTISTE Admitting Unavailable John BAPTISTE Referring Unavailable John BAPTISTE Attending Unavailable ADRIÁNSU Admitting Unavailable ADRIÁN, SU Esquivel Attending Unavailable ADRIÁN, SU Esquivel Admitting Unavailable ADRIÁN, SU Esquivel Attending Unavailable John BAPTISTE Referring Unavailable COOK, John Hauser Attending Unavailable COOK, John Hauser Attending Unavailable ADRIÁN, SU Esquivel Attending Unavailable ADRIÁN, SU Esquivel Attending Unavailable CHING, SERA Jimenez Referring Unavailable ADRIÁN, SU Esquivel Attending Unavailable John BAPTISTE Attending Unavailable RISALIPETER, DEBBI R Attending Unavailable CHING, SERA Jimenez Referring Unavailable CHING, SERA Jimenez Attending Unavailable CHING, SERA Jimenez Referring Unavailable GURJIT BUSBY Attending Unavailable RISALIDEBBI GREEN Attending Unavailable CHING, SERA Jimenez Referring Unavailable MARYBETH TURNER Attending Unavailable RISALITI, DEBBI R Referring Unavailable RISALITI, DEBBI R Attending Unavailable PROBLEMS DATE TYPE CONDITION / CODE ATTENDING STATUS [facility] 10/31/2024 Unknown Ischemic cardiomyopathy / I25.5(ICD-10) Kiya Richmond [facility] 10/24/2024 Admitting Diagnosis Body mass index (BMI) 33.0-33.9, adult / Z68.33(ICD-10) KIYA RICHMOND [facility] 10/16/2024 Unknown Acute on chronic systolic (congestive) heart failure / I50.23(ICD-10) Vincenzo Caraballo [facility] 10/16/2024 Unknown Pneumonia, unspecified organism / J18.9(ICD-10) Vincenzo Caraballo [facility] 10/16/2024 Unknown Acute respirator y failure with hypoxia / J96.01(ICD-10) Vincenzo Caraballo [facility] 10/16/2024 Unknown Presence of rigo nary angioplasty implant and graft / Z95.5(ICD-10) Vincenzo Caraballo [facility] 10/16/2024 Unknown Atherosclerotic heart disease of [place] coronary artery without angina pectoris / I25.10(ICD-10) Vincenzo Caraballo [facility] 05/15/2024 Admitting Diagnosis Body mass index (BMI) 36.0-36.9, adult / Z68.36(ICD-10) [facility] 02/13/2023 Admitting Diagnosis Personal history of nicotine dependence / Z87.891(ICD-10) [facility] 02/13/2023 Admitting Diagnosis Atherosclerotic heart disease of [place] coronary artery without angina pectoris / I25.10(ICD-10) [facility] 02/13/2023 Admitting Diagnosis Essential (primary) hypertension / I10(ICD-10) [facility] 02/13/2023 Admitting Diagnosis Ischemic cardiomyopathy / I25.5(ICD-10) [facility] 02/13/2023 Admitting Diagnosis Mixed hyperlipidemia / E78.2(ICD-10) [facility] 02/13/2023 Admitting Diagnosis Presence of coronary angioplasty implant and graft / Z95.5(ICD-10) [facility] PROCEDURES No Procedure Records Found RESULTS OFFICE VISIT Observed: 12/09/2024 9:15 AM Status: COMPLETED Source: [facility] [id number] Demarcus Calderon Date Provider Department Center 12/09/2024 [id number] ORTEGA CARD Benita Stevenson Family History Family Status - Relation Status Age at Mother Father Level of Service:72612 RI OFFICE/OUTPATIENT NEW MODERATE MDM 45 MINUTES PROGRESS Observed: 12/09/2024 9:15 AM Status: COMPLETED Source: [facility] Cardiology Clinic Note Chief Complaint: Establish care HPI: Demarcus Calderon is a 69 y.o. male with significant past medical history of CAD s/p CI 2009, HFrEF (EF 30 to 35% 10/2024), ischemic cardiomyopathy, severe persistent asthma, and prediabetes who presents to the clinic today to establish care. Patient has a history of coronary artery disease with a PCI done in 2009 with medial and ROBBIN placed in LAD and mid to distal RCA. Patient was admitted recently on September 2024 due shortness of breath and was diagnosed with pneumonia. Echo revealed EF of 25% (previously 45% in 02/2023). Cardiology were consulted and they proceeded with coronary cardiogram which revealed patent LAD and RCA stents with occluded ramus branch and PLV branch of RCA. Patient also noted to have severe ischemic cardiomyopathy with severe left ventricular dysfunction with ejection fraction of around 20%. Patient was started on GDMT but he could not tolerate them due to hypotension and there was couple of changes to his medications. Echo was repeated on 10/2024 which revealed EF 30 to 35%. Patient presented today to establish care. Patient denied chest pain, shortness of breath, abdominal pain, nausea or vomiting. Patient provide a bag with the medications that he is taking. Patient is on Jardiance 10 mg and spironolactone 25 mg. Patient also reported that he is on losartan and Lasix both of them were not in the bag. Patient bag also did not contain aspirin or statin. We discussed with the patient the importance of GDMT and we wrote a paper of medications that he should be on including GDMT, aspirin, and statin. Patient will check his medications and will get back to us the medications that he is not on. Stated he changed cardiology groups since the previous one 'kept just throwing meds at me' Cardiology ROS: Review of Systems Constitutional: Negative for chills, fever, malaise/fatigue and night sweats. HENT: Negative for hoarse voice and sore throat. Eyes: Negative for pain and photophobia. Cardiovascular: Negative for dyspnea on exertion, irregular heartbeat, leg swelling and orthopnea. Respiratory: Negative for cough, hemoptysis, shortness of breath and snoring. Endocrine: Negative for polydipsia and polyphagia. Skin: Negative for dry skin and flushing. Musculoskeletal: Negative for back pain. All other systems reviewed and are negative. Past Medical History He has a past medical history of CHF (congestive heart failure) ([facility]), COPD (chronic obstructive pulmonary disease) ([facility]), Coronary artery disease, GERD (gastroesophageal reflux disease), and Hypertension. Surgical History He has a past surgical history that includes Cardiac catheterization. Social History He reports that he has quit smoking. His smoking use included cigarettes. He has never used smokeless tobacco. He reports that he does not currently use alcohol. He reports that he does not use drugs. Family History Family History[1] Allergies Codeine-guaifenesin, Codeine, and Guaifenesin Medications Current Medications[2] Last Recorded Vitals BP 125/76 (BP Location: Left arm, Patient Position: Sitting) Pulse 78 Ht 1.727 m (5' 8 ) Wt 99.3 kg (219 lb) SpO2 97% BMI 33.30 kg/m??? Physical Examination: GENERAL: alert and oriented x3, well developed, in no acute distress. HEAD: atraumatic, normocephalic. EYES: FRANCINE, EOMI. NECK: trachea midline, no JVD present, no carotid bruits present. CARDIAC: S1, S2 present. RRR. No murmur, rubs, or gallops. RESPIRATORY: CTAB, no increased effort of breathing, no rales, rhonchi, or wheezing. ABDOMEN: soft, nontender, nondistended. EXTREMITIES: no lower extremity edema, peripheral pulses are 2+ bilaterally. No rash/skin discoloration present. NEURO: strength/sensation equal and symmetric in bilateral upper and lower extremities. PSYCH: appropriate mood, affect, and judgement. Cardiology tests: Echocardiogram 11/21/2024 Left ventricular ejection fraction 30 to 35%. Moderate global hypokinesia of the left ventricle. No valvular lesions. Coronary angiogram 10/17/2024 Severe ischemic cardiomyopathy Widely patent LAD/diagonal branch stents from 2009 Widely patent mid/distal RCA stent from 2009 occluded ramus branch, occluded PLV branch RCA Severe left ventricular dysfunction with ejection fraction 20% Echocardiogram February/2023 Reported left ventricular ejection fraction of 45% Assessment: Diagnoses and all orders for this visit: Coronary artery disease involving [place] coronary artery of [place] heart without angina pectoris (Primary) Comments: S/p PCI to LAD and mid/distal RCA 2009. Recent coronary angiogram September/2024 revealed patent the stent with totally occluded ramus and PLV branch of RCA Orders: - metoprolol succinate XL (Toprol-XL) 25 mg 24 hr tablet; Take 0.5 tablets (12.5 mg) by mouth once daily as directed. Do not crush or chew. - atorvastatin (Lipitor) 40 mg tablet; Take 1 tablet (40 mg) by mouth at bedtime. - Rest RNA - LV Analysis & EF; Future - aspirin EC tablet 81 mg Heart failure with reduced ejection fraction (CMS/HCC) Comments: Patient on Jardiance and spironolactone. He also reported that he is on losartan Ischemic cardiomyopathy Prediabetes Comments: Last A1c 6.3 Severe persistent asthma without complication (CMS/HCC) Plan: Will start the patient on metoprolol as he could not tolerate Coreg previously due to hypotension. He will continue losartan, Jardiance, and spironolactone Patient is not sure about the medications that he is taking. We gave him a piece of paper with the medications that he is supposed to be on including aspirin, statin, and GDMT For coronary artery disease he will need to be on aspirin and statin. Patient will check his medication list and get back to us if he is not on those medications We will order a MUGA scan within 2 months of GDMT to assess his ejection fraction. He will need ICD if he continue to have ejection fraction less than 35% despite GDMT Lisa Long MD, MPH PGY-3 Internal Medicine Resident By using the attestations below, the signing clinician agrees that I have read and verify that the documentation has been personally reviewed by me and ensure that the documentation accurately reflects the encounter. GC: I personally saw this patient on the day of the encounter, performed the robles portion(s) of the service and participated in the management and confirm the resident's documentation. Please note there may be an additional personal documentation from me. Additional Comments: The patient is not aware of the medications he is currently on; he also appears reluctant to start any additional medications. We explained the importance of guideline directed medical therapy on improving his ejection fraction and potentially avoiding the need for an ICD. We will repeat a MUGA scan in 2 months; if his EF is 35% or less he will need to be evaluated for possible implantable cardioverter defibrillator Luba Ortega MD, MPH, MERGED WITH [facility], [facility] Interventional Cardiology Pager Email: [email or web address] [1] No family history on file. [2] Current Outpatient Medications: Advair HFA 230-21 mcg/actuation inhaler, Inhale 2 puffs in the morning and at bedtime., Disp: , Rfl: albuterol 90 mcg/actuation inhaler, Inhale., Disp: , Rfl: empagliflozin (Jardiance) 10 mg, Take 10 mg by mouth in the morning., Disp: , Rfl: ipratropium-albuteroL (Duo-Neb) 0.5-2.5 mg/3 mL nebulizer solution, Take 3 mL by nebulization in the morning, afternoon, and at bedtime., Disp: , Rfl: montelukast (Singulair) 10 mg tablet, Take 10 mg by mouth in the morning., Disp: , Rfl: omeprazole (PriLOSEC) [address] capsule, Take 20 mg by mouth before breakfast., Disp: , Rfl: spironolactone (Aldactone) 25 mg tablet, Take 25 mg by mouth in the morning., Disp: , Rfl: tamsulosin (Flomax) 0.4 mg 24 hr capsule, Take 0.8 mg by mouth in the morning., Disp: , Rfl: atorvastatin (Lipitor) 40 mg tablet, Take 1 tablet (40 mg) by mouth at bedtime., Disp: 90 tablet, Rfl: 3 benzonatate (Tessalon) 200 mg capsule, Take 200 mg by mouth if needed in the morning, at noon, and at bedtime., Disp: , Rfl: cetirizine (ZyrTEC) 10 mg chewable tablet, Chew 10 mg in the morning., Disp: , Rfl: fluticasone (Flonase) 50 mcg/actuation nasal spray, Administer 2 sprays into each nostril in the morning., Disp: , Rfl: metoprolol succinate XL (Toprol-XL) 25 mg 24 hr tablet, Take 0.5 tablets (12.5 mg) by mouth once daily as directed. Do not crush or chew., Disp: 45 tablet, Rfl: 3 Current Facility-Administered Medications: aspirin EC tablet 81 mg, 81 mg, oral, Once, Lisa Long MD PATIENT EDUCATION Observed: 12/02/2024 8:24 AM Status: F Source: [facility] Patient [...] Follow these instructions at home: ??? Take yajo-bwe-wzxlqgu and prescription medicines only as told by [...] provider. Document Revised: 11/30/2021 Document Reviewed: 11/30/2021 [employer] Patient Education ? 2023 [employer]. UROLOGY OFFICE/CLINIC NOTE Observed: 12/2024 7:37 AM Status: F Source: [facility] Urology Office/Clinic Note Chief Complaint 3 month follow up HPI Staff 3 month follow up w/PVR Previous DX: BPH with obstruction/LUTS, urinary retention, elevated PSA. S/p Urolift 8 implants 08/08/24 *Flomax 0.4 mg bid Previous PSA 04/25/24 - 2.30 IPSS 6 Denies pain or burning, denies visible blood PVR 335 History of Present Illness Tests reviewed: reviewed UA, PVR I have reviewed the previous health record [...] Exam Vitals & Measurements HR: 72(Peripheral) RR: 18 BP: 126/68 HT: 68 in HT: 172 cm WT: 216.053 lb WT: 98.0 kg BMI: 33.13 General Appearance: alert, no distress, well nourished, well developed male. Assessment/Plan 1. BPH with obstruction/lower urinary tract symptoms (N40.1: Benign prostatic hyperplasia with lower urinary tract symptoms) S/p Urolift 8 implants 08/08/24. UA neg. IPSS 6 (16, 14 pre-urolift). Taking Flomax 0.4 mg bid. PVR is still elevated but has improved. Discussed med is usually weaned off after procedure but recommend pt to stay on this. -Cont Flomax bid. Pt to call for refills. -F/u in 6 mos w/ PVR 2. Urinary retention (R33.9: Retention of urine, unspecified) PVR (cc): 04/16/24 - 413 initially, repeat 204 repeat at end of ov after voiding again 04/28/24 - 208 08/08/24 - urolift 08/18/24 - 471 08/26/24 - 363 12/02/24 - 335 Emptying has improved some. Should continue to improve with time since obstruction has been relieved. 3. Elevated PSA (R97.20: Elevated prostate specific antigen [PSA]) PSA: 07/29/21 - 2.33 09/14/23 - 2.87 02/27/24 - 6.00 & 13.7% 04/25/24 - 2.30 -PSA in 6 mos Overall the patient is happy with the results of the UroLift which was performed about 3 months ago. He still is carrying about 300 cc residual which is actually an improvement. For this reason I have recommended staying on maximal tamsulosin 0.8 mg on a daily basis. He will call for refills. Regarding the PSA level which had increased up to 6 and then back down to 2.3 late last year I have recommended a repeat PSA level prior to his next visit. He agrees with that plan. Reviewed UA, ordered PSA, order PVR at next visit. Medication management. Follow-up With When Contact Information BENNY SHELLEY, John Hauser, URL [address] [place] [address] [address] [place], [place] [id number]- Additional Instructions: 6 mos w/ PSA and PVR Patient Education Benign Prostatic Hyperplasia IMedina, personally scribed for Dr. Baptiste on 12/02/2024 08:25:31. . Documentation recorded by the Medina bundy acurately reflects the services(s) I performed and decisions made by me. Authenticated by Dr. Baptiste on 12/02/2024 08:26:24. Portions of this record may have been created with voice recognition artificial intelligence software, specifically [employer], [employer] and or [employer]. Substitutions may have occurred due to the inherent limitations of voice recognition and artificial intelligence software. 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 Elevated PSA GERD without esophagitis Hypertension Ischemic cardiomyopathy Pure hypercholesterolemia Testicular hypofunction Urinary retention Historical No qualifying data Procedure/Surgical History Cystoscopy (06/23/2024), Colonoscope, Hernia repair. Medications albuterol carvedilol 6.25 mg Tab, 6.25 mg= 1 tab(s), Oral, BID losartan 50 mg Tab, 50 mg= 1 tab(s), Oral, Daily montelukast 10 mg Tab omeprazole 20 mg Cap-DR, 20 mg= 1 cap(s), Oral, Daily rosuvastatin, 40 mg, Oral, Daily spironolactone 25 mg Tab, 25 mg= 1 tab(s), Oral tamsulosin 0.4 mg Cap, 0.8 mg= 2 cap(s), Oral, Daily, 11 refills valsartan 40 mg Tab Allergies codeine (Unknown) Social History Alcohol Never., 04/16/2024 Substance Abuse Never., 04/16/2024 Tobacco Former smoker, quit more than 30 days ago Tobacco Use:. Never Smokeless Tobacco Use:. Cigarettes, Started age 16.0 Years. Stopped age 38 Years., 12/02/2024 Family History Hyperlipidemia: Father. Hypertension: Father. Immunizations Vaccine Date Status influenza virus vaccine, inactivated 04/16/2019 Recorded pneumococcal 13-valent vaccine 08/16/2018 Recorded influenza virus vaccine, inactivated 08/16/2018 Recorded pneumococcal 23-valent vaccine 05/28/2018 Recorded diphtheria/pertussis, acel/tetanus adult 08/10/2017 Recorded zoster vaccine live 12/21/2016 Recorded pneumococcal 23-valent vaccine 09/30/2012 Recorded Td(adult) unspecified formulation 2007 Recorded Lab Results Ambulatory Point of Care Results Bilirubin Urine Dipstick: Negative (12/02/24 08:09:00) Blood Urine Dipstick: Negative (12/02/24 08:09:00) Glucose Urine Dipstick: 3+ 1000 mg/dl (12/02/24 08:09:00) Ketones Urine Dipstick: Negative (12/02/24 08:09:00) Leukocytes Urine Dipstick: Negative (12/02/24 08:09:00) Nitrite Urine Dipstick: Negative (12/02/24 08:09:00) Protein Urine Dipstick: Negative (12/02/24 08:09:00) Specific [place] Urine Dipstick: 1.015 (12/02/24 08:09:00) Urine Appearance Urine Dipstick: Clear (12/02/24 08:09:00) Urine Color Urine Dipstick: Yellow (12/02/24 08:09:00) Urobilinogen Urine Dipstick: Normal 0.2-1 EU/dl (12/02/24 08:09:00) pH Urine Dipstick: 5.5 (12/02/24 08:09:00) Result Comment: Electronical ly Signed By: John BAPTISTE MD\.br\Date and Time Signed: 12/02/24 08:27 EDT\.br\Electronically Co-Signed By: Medina Farley\.br\Date and Time Co-Signed: 12/02/24 08:25 EDT AMBULATORY VISIT SUMMARY Observed: 12/02 7:37 AM Status: F Source: [facility] Ambulatory Visit Summary DEMARCUS CALDERON :1955 Visit Date:12/02/2024 Ambulatory Visit Instructions Your Diagnosis BPH with obstruction/lower urinary tract symptoms Urinary retention Elevated PSA Your Care Team Attending Physician - John BAPTISTE MD Primary Care Physician - Sera Hobbs PA-C This Is Your Medications List Contact prescribing physician if questions or concerns albuterol carvedilol (carvedilol 6.25 mg Tab) losartan (losartan 50 mg Tab) montelukast (montelukast 10 mg Tab) omeprazole (omeprazole 20 mg Cap-DR) rosuvastatin spironolactone (spironolactone 25 mg Tab) tamsulosin (tamsulosin 0.4 mg Cap) valsartan (valsartan 40 mg Tab) Procedures Performed Cystoscopy (06/23/2024), Colonoscope, Hernia repair. Discharge Vitals Heart Rate (Peripheral) 72 Respiratory Rate 18 Blood Pressure 126/68 Height 172 cm Height 68 in Weight 98.0 kg Weight 216.053 lb BMI 33.13 What to do next Scheduled Follow-Up Appointments Sunday2025 9:30 AM EST With: Where: [facility] [address] [place] [address]- Sunday2025 9:45 AM EST With: John BAPTISTE MD Where: [facility] [address] [place] [address]- You Need to Schedule the Following Appointments Follow Up with John BAPTISTE MD, URL When: Comments: 6 mos w/ PSA and PVR Where: [address] [address]- You Need to Complete the Following PSA Free & Total, Blood, Routine collect, *Est. 06/04/25 +/- 28 day(s), Order for future visit, Lab Collect, Elevated PSA, Required & Missing, Print Label By Order Location Medications What How Much When Instructions Unchanged albuterol Contact prescribing physician if questions or concerns Unchanged carvedilol (carvedilol 6.25 mg Tab) 1 Tablets By Mouth 2 times a day Contact prescribing physician if questions or concerns Unchanged losartan (losartan 50 mg Tab) 1 Tablets By Mouth Every day Contact prescribing physician if questions or concerns Unchanged montelukast (montelukast 10 mg Tab) Contact prescribing physician if questions or concerns Unchanged omeprazole (omeprazole 20 mg Cap-DR) 1 Capsules By Mouth Every day Contact prescribing physician if questions or concerns Unchanged rosuvastatin 40 Milligram By Mouth Every day Contact prescribing physician if questions or concerns Unchanged spironolactone (spironolactone 25 mg Tab) 1 Tablets By Mouth Contact prescribing physician if questions or concerns Unchanged tamsulosin (tamsulosin 0.4 mg Cap) 2 Capsules By Mouth Every day Duration: 30 Days Contact prescribing physician if questions or concerns Unchanged valsartan (valsartan 40 mg Tab) Contact prescribing physician if questions or concerns Allergies codeine (Unknown) Problems Ongoing - Any problem that you are currently receiving treatment for. BPH with obstruction/lower urinary tract symptoms Chronic prostatitis Chronic systolic congestive heart failure Coronary artery disease involving [place] heart with angina pectoris Elevated PSA GERD [...] Follow these instructions at home: ??? Take uoeo-tae-awbhjgu and prescription medicines only as told by [...] provider. Document Revised: 11/30/2021 Document Reviewed: 11/30/2021 [employer] Patient Education ??? 2023 [employer]. Patient Portal You may access all of your results and other medical record information on our secure patient portal. If you are not signed up for this yet, please contact [employer] at [phone] to get signed up today. Language Information Language assistance services are available as needed. ECH ECHO TRANSTHORACIC Observed: 025 7:56 AM Status: COMPLETED Source: [facility] [place] [address] Echocardiogram Signed Patient: Demarcus Calderon MR#: [id number] : 1955 Acct:[id number] Age/Sex: 69 / M ADM Date: 11/21/24 Loc: Room: Type: [facility] Attending Dr: Kiya Richmond APRN Ordering Provider: Kiya Richmond APRN Date of Service: 11/21/24/ ECH/ECH echo transthoracic: ISCHEMIC CARDIOMYOPATHY Copies to: WILLIAN Garcia MD BSA: 2.1 m2 BP: 127/80 mmHg HR: 74 Reason For Study: ISCHEMIC CARDIOMYOPATHY History: HTN, HLD, Former Smoker, [place], Stents, Emphysema, COVID Interpretation Summary Ejection Fraction = 30-35%. There is moderate global hypokinesis of the left ventricle. The left ventricle is severly dilated. There is left ventricular diastolic dysfunction. There is mild mitral regurgitation. There is mild tricuspid regurgitation. Compared to prior study, changes are noted. Progression of cardiomyopathy compared to 02/05/23. Procedure/Quality: A two-dimensional transthoracic echocardiogram with color flow, Doppler and injection of contrast agent Definity was performed. The study was technically suboptimal in quality due to poor acoustic windows . Left Ventricle: The left ventricular thickness is normal. The left ventricle is severly dilated. Ejection Fraction = 30-35%. There is left ventricular diastolic dysfunction. There is moderate global hypokinesis of the left ventricle. Left Atrium: The left atrium appears normal in size. Right Atrium: The right atrium appears normal in size. Right Ventricle: The right ventricle is normal in size and function. Aortic Valve: The aortic valve is normal in structure. No hemodynamically significant valvular aortic stenosis. No aortic regurgitation is present. Mitral Valve: The mitral valve is normal in structure. No significant mitral valve stenosis. There is mild mitral regurgitation. Tricuspid Valve: The tricuspid valve is normal in structure. There is mild tricuspid regurgitation. Pulmonic Valve: The pulmonic valve is not well visualized. No significant pulmonic regurgitation. Arteries: The aortic root is normal size. Pericardium/Pleura: No pericardial effusion seen. IVC/Hepatic Veins: The inferior vena cava is normal in size, with a normal collapsibility index. Measurements with Normals IVSd: 1.1 cm (0.7-1.1 cm)LVIDd: 6.0 cm (3.7-5.4 cm) LVPWd: 1.1 cm (0.7-1.1 cm)LVIDs: 5.2 cm (2.3-3.6 cm) LA dimension: 4.3 cm (2.3-4.0 cm)Ao root diam: 3.1 cm(2.0-3.6 cm) asc Aorta Diam: 3.3 cm(2.1-3.4cm) Doppler with Normals RVSP(TR): 40.7 mmHg (18-35mmHg) LV V1 max: 107.7 cm/sec (0.7-1.7m/s)MV E max anthony: 74.7 cm/sec(0.8-1.3m/s) MV A max anthony: 103.3 cm/sec(0.0-0.0m/s) MV E/A: 0.72 (<1.5) MMode/2D Measurements Calculations RVDd: 2.7 cm FS: 13.0 % MV Diam: 0.38 cm Ao root area: TAPSE: 2.0 cm EDV(Teich): 7.6 cm2 RV S Anthony: 16.6 cm/sec 181.5 ml ESV(Teich): 131.9 ml EF(Teich): 27.3 % __ LVOT diam: 2.2 cm LVLd ap4: 9.5 cm SV(MOD-sp4): LAV(MOD-sp4): LVOT area: 3.7 cm2 EDV(MOD-sp4): 82.0 ml 51.9 ml 297.0 ml LAV(MOD-sp2): LVLs ap4: 8.8 cm 50.5 ml ESV(MOD-sp4): 215.0 ml EF(MOD-sp4): 27.6 % __ LA A2 area: 17.1 cm2 LA A4 area: 18.9 cm2 LA length (vol): 5.3 cm LA vol: 51.9 ml LA vol index: 24.5 ml/m2 Doppler Measurements Calculations MV dec time: MV V2 max: E/E' lat: 10.2 MV P1/2t max anthony: 0.26 sec 112.5 cm/sec E/E' med: 12.3 88.2 cm/sec MV max P.0 mmHg MV P1/2t: 80.6 msec MV V2 mean: MVA(P1/2t): 2.7 cm2 72.9 cm/sec MV dec slope: MV mean P.4 mmHg MV V2 VTI: 30.4 cm 320.8 cm/sec2 MV area (1 diam): 0.11 cm2 MVA(VTI): 2.8 cm2 MV Flow area(1diam): 0.11 cm2 __ Ao V2 max: AI max anthony: LV V1 max PG: MR max anthony: 145.2 cm/sec 293.2 cm/sec 4.6 mmHg 482.5 cm/sec Ao max PG: AI max P.4 mmHg LV V1 mean PG: MR max P.3 mmHg 8.4 mmHg AI dec slope: 2.3 mmHg Ao mean P.5 cm/sec2 LV V1 mean: 4.3 mmHg AI P1/2t: 871.5 msec 69.3 cm/sec Ao V2 mean: LV V1 VTI: 22.9 cm 97.4 cm/sec Ao V2 VTI: 30.3 cm TURNER(I,D): 2.8 cm2 TURNER(V,D): 2.8 cm2 __ SV(MV 1 diam): TV max P.0 mmHg TR max anthony: RF(MV,Ao)(1 diam): - 3.4 ml 298.6 cm/sec 67.0 SI(MV 1 diam): TR max PG: RF(MV,LVOT)(1diam): - 1.6 ml/m2 35.7 mmHg 24.0 RAP systole: 5.0 mmHg Transcribed By: ARMANDO Performed At: 11/21/24 0756 Signed By: Alex Gaston MD 11/21/24 1535 BASIC METABOLIC PANEL Collected: 10/31/2024 8:20 AM Status: F Source: [facility] TYPE CODE TESTS RESULT OUT OF RANGE REFERENCE UNITS LAB GLU Glucose 115 High 70-100 mg/dL Result Comment: Random Gluco se Reference Range is dependent on time and content of last meal. Glucose of more than 200 mg/dL in a nonstressed, ambulatory subject supports the diagnosis of Diabetes Mellitus. ADA recommended reference range LAB BUN Blood Urea Nitrogen 16 Normal 7-25 mg/dL LAB CREATT Creatinine 0.97 Normal 0.70-1.30 mg/dL LAB GFReNR Estimated GFR >60.0 mL/Min LAB NA Sodium 134 Low 136-145 mmol/L LAB K Potassium 4.0 Normal 3.5-5.1 mmol/L LAB CL Chloride 100 Normal 98-107 mmol/L LAB CO2 Carbon Dioxide 25.4 Normal 21.0-31.0 mmol/L LAB GAP Anion Gap 12.6 Normal 6.0-15.0 meq/L LAB CA Calcium 8.6 Normal 8.6-10.3 mg/dL Result Comment: PERFORMED BY : [place] [address] PATHOLOGIST COMPUTER APPLICATIONS DEVELOPER ERASMO SADLER M.D. Performed By: #### BMP #### [address] HEMOGRAM CBC WITHOUT DIFF Collected: 10/18/2024 9:07 AM Status: F Source: [facility] TYPE CODE TESTS RESULT OUT [...] 6.6-10.1 fL Result Comment: PERFORMED BY : [address] [address] PATHOLOGIST COMPUTER APPLICATIONS DEVELOPER ERASMO SADLER M.D. Performed By: #### BHAKTI KRISHNA BMP #### [place] [id number] [facility] BASIC METABOLIC PANEL Collected: 10/18/2024 9:07 AM Status: F Source: [facility] TYPE CODE TESTS RESULT OUT [...] By: #### BHAKTI KRISHNA , BMP #### [place] [id number] [facility] MAGNESIUM Collected: 9:07 AM Status: F Source: [facility] TYPE CODE TESTS RESULT OUT OF RANGE REFERENCE UNITS LAB MG Magnesium 2.3 Normal 1.9-2.7 mg/dL Result Comment: PERFORMED BY : [place] [address] PATHOLOGIST COMPUTER APPLICATIONS DEVELOPER ERASMO SADLER M.D. Performed By: #### BHAKTI KRISHNA , BMP #### [place] [id number] [facility] TROPONIN I HIGH SENSITIVITY Collected: 10/17/2024 11:57 AM Status: F Source: [facility] TYPE CODE TESTS RESULT OUT OF RANGE REFERENCE UNITS LAB HS TROP Troponin I High Sensitivity 14 Normal 0-20 Result Comment: The Troponin units of report have been changed to meet the Chest Pain Accreditation requirement, element EC5.M1l2. Troponin units are changed from pg/ml to ng/L. Also, the decimal is removed and results are in whole numbers. PERFORMED BY: [place] [address] PATHOLOGIST COMPUTER APPLICATIONS DEVELOPER ERASMO SADLER M.D. Performed By: #### HS TROP # ### [address] XR CHEST 2V* Observed: 10/17/2024 9:45 AM Status: COMPLETED Source: [facility] [place] [address] XRay Report Signed Patient: Demarcus Calderon MR#: [id number] : 1955 Acct:[id number] Age/Sex: 69 / M ADM Date: 10/16/24 Loc: Room: [address] [place] [address] Type: ADM IN Attending Dr: Vincenzo Caraballo [...] Trejo M.D. 10/17/2024 9:46 AM Dictation Location: [place] [address] Transcribed By: [facility] 10/17/2446 Dictated By: Miguel Trejo MD 10/17/2445 Signed By: <Electronically signed by Miguel Trejo MD in OV> 10/17/24945 GLUCOSE POCT GLUCOMETERS Collected: 10/17/2024 9:12 A M Status: F Source: [facility] TYPE CODE TESTS RESULT OUT OF RANGE REFERENCE UNITS LAB GLUPOC Glucose Poc Glucometers 144 mg/dL Result Comment: Random Gluco se Reference Range is dependent on time and content of last meal. Glucose of more than 200 mg/dL in a nonstressed, ambulatory subject supports the diagnosis of Diabetes Mellitus. LAB COMM1 Commemt1 Glu2: Cleaned Meter Result Comment: PERFORMED BY : [facility] Demetri [place]ICHARD[place] [address] PATHOLOGIST COMPUTER APPLICATIONS DEVELOPER FIORELLA BRIAN M.D. Performed By: #### GLULS ### # Point of Care testing , COMPLETE BLOOD COUNT AUTO DIFF Collected: 10/17/2024 5:00 AM Status: F Source: F [facility] TYPE CODE TESTS RESULT OUT OF RANGE [...] 0.0-0.2 10*3/uL Result Comment: PERFORMED BY : [place] [address] PATHOLOGIST COMPUTER APPLICATIONS DEVELOPER FIORELLA BRIAN M.D. Performed By: #### BMP, CBC, MG #### [place] [id number] [facility] BASIC METABOLIC PANEL Collected: 10/17/2024 5:00 AM Status: F Source: [facility] TYPE CODE TESTS RESULT OUT [...] Performed By: #### BMP, CBC, MG #### [facility] [address] [place] [id number] [facility] MAGNESIUM Collected: 5:00 AM Status: F Source: [facility] TYPE CODE TESTS RESULT OUT OF RANGE REFERENCE UNITS LAB MG Magnesium 2.2 Normal 1.9-2.7 mg/dL Result Comment: PERFORMED BY : [facility] [address] [place] [id number] PATHOLOGIST COMPUTER APPLICATIONS DEVELOPER FIORELLA BRIAN M.D. Performed By: #### BMP, CBC, MG #### [facility] [address] [place] [id number] [facility] PATIENT EDUCATION Observed: 08/26/2024 8:40 AM Status: [...] Follow these instructions at home: ??? Take yojh-gey-ntlhfof and prescription medicines only as told by [...] provider. Document Revised: 11/30/2021 Document Reviewed: 11/30/2021 [employer] Patient Education ? 2023 [employer] UROLOGY OFFICE/CLINIC NOTE Observed: 05/2024 7:44 AM [...] Information BENNY SHELLEY, John Hauser, URL [address] [address]- Additional Instructions: 6-8 wks with PVR Patient Education Benign Prostatic Hyperplasia IDayanara, personally scribed for Dr. Baptiste on 08/26/2024 08:41:13. . Portions of this record may have been created with voice recognition artificial intelligence software, specifically [employer], [employer] and or [employer]. Substitutions may have occurred due to the inherent limitations of voice recognition and artificial intelligence software. 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 Elevated PSA GERD [...] Protein Urine Dipstick: Negative (08/26/24 08:23:00) Specific [place] Urine Dipstick: 1.015 (08/26/24 08:23:00) Urine Appearance Urine Dipstick: Clear (08/26/24 08:23:00) Urine Color Urine Dipstick: Yellow (08/26/24 08:23:00) Urobilinogen Urine Dipstick: Normal 0.2-1 EU/dl (08/26/24 08:23:00) pH Urine Dipstick: 6 (08/26/24 08:23:00) Result Comment: Electronical ly Signed By: John BPATISTE MD\.br\Date and Time Signed: 08/26/24 08:47 EDT\.br\Electronically Co-Signed By: Dayanara Murrell\.br\Date and Time Co-Signed: 08/26/24 08:41 EDT AMBULATORY VISIT SUMMARY Observed: 08/26 7:44 AM Status: F Source: [facility] Ambulatory Visit Summary DEMARCUS CALDERON :1955 Visit Date:08/26/2024 Ambulatory Visit Instructions Your Diagnosis BPH with obstruction/lower urinary tract symptoms Urinary retention Elevated PSA Your Care Team Attending Physician - John BAPTISTE MD Primary Care Physician - Sera Hobbs [...] John BAPTISTE MD Where: [facility] [address] [place] [address]- You Need to Schedule the Following Appointments Follow Up with John BAPTISTE MD, URL When: Where: [address] [place], [place] [address] [address] [address]- Medications What How Much When [...] congestive heart failure Coronary artery disease involving koyuk heart with angina pectoris Elevated PSA GERD [...] Follow these instructions at home: ??? Take smmo-ujy-epzzstl and prescription medicines only as told by [...] provider. Document Revised: 11/30/2021 Document Reviewed: 11/30/2021 [employer] Patient Education ??? 2023 [employer]. PATIENT EDUCATION Observed: 08/18/2024 3:05 PM Status: [...] Follow these instructions at home: ??? Take rcwk-mrh-ipjfgvt and prescription medicines only as told by [...] provider. Document Revised: 11/30/2021 Document Reviewed: 11/30/2021 [employer] Patient Education ? 2023 [employer]. 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 Elevated PSA GERD [...] Protein Urine Dipstick: Negative (08/18/24 14:29:00) Specific [place] [facility] Urine Dipstick: <=1.005 (08/18/24 14:29:00) Urine Appearance Urine Dipstick: Clear (08/18/24 14:29:00) Urine Color Urine Dipstick: Yellow (08/18/24 14:29:00) Urobilinogen Urine Dipstick: Normal 0.2-1 EU/dl (08/18/24 14:29:00) pH Urine Dipstick: 6 (08/18/24 14:29:00) Result Comment: Electronical ly Signed By: JOSEPH Peralta APRN, [place] X\.br\Date and Time Signed: 08/18/24 16:08 EDT\.br\Electronically Co-Signed By: Shree Stallworth\.br\Date and Time Co-Signed: 08/18/24 15:06 EDT AMBULATORY VISIT SUMMARY Observed: 08/18 2:09 PM Status: F Source: [facility] Ambulatory Visit Summary DEMARCUS CALDERON :1955 Visit [...] John BAPTISTE MD Where: [facility] [place] [address] [place] [address]- You Need to Schedule the Following Appointments Follow Up with John BAPTISTE MD, URL When: Where: [address] [place] [address]- Medications What How Much When Instructions Unchanged [...] congestive heart failure Coronary artery disease involving koyuk heart with angina pectoris Elevated PSA GERD [...] Follow these instructions at home: ??? Take qerb-ikm-nscyzao and prescription medicines only as told by [...] provider. Document Revised: 11/30/2021 Document Reviewed: 11/30/2021 [employer] Patient Education ??? 2023 [employer]. AMBULATORY VISIT SUMMARY Observed: 08/15 7:49 AM Status: F Source: [facility] Ambulatory Visit Summary DEMARCUS CALDERON :1955 Visit Date:08/15/2024 Ambulatory Visit Instructions Your Care Team Attending Physician - BENNY SHELLEY, John Hauser Primary Care Physician - Sera Hobbs PA-C Referring Physician - John BAPTISTE MD This Is Your Medications List acetaminophen-hydrocodone ([place] 325 mg-5 mg oral tablet) acetaminophen-tramadol (Ultracet [...] What How Much When Instructions Unchanged acetaminophen-hydrocodone ([place] 325 mg-5 mg oral tablet) See instructions [...] congestive heart failure 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 Stay on the Flomax for now. Some discharge instructions have been provided. If the bleeding gets severe, or the catheter is clogging from blood clots, you need to go to the ER for irrigation. Will make a one week appt. to remove the catheter. Type Location Start [facility] CALL PAT FT [facility] Urology Surgical Services 08/13/2024 12:00 PM [...] Date You may receive a survey from [employer] asking you to rate your care experience. Your feedback is important and will help us understand what we do well and how we can improve the quality of care we provide to you, your loved ones and our community. It???s an honor to serve you. Thank you for choosing [facility] PATIENT EDUCATION Observed: 08/08/2024 2:02 PM [...] C Source: [facility] Inpatient Patient Summary [address], [place] [address] Clinical Summary Person Information Name: DEMARCUS CALDERON Age: 69 Years : 1955 Sex: Male PCP: Sera Hobbs PA-C Marital Status: Race: White Ethnicity: Non- or Language: [place] Citizen Visit Id: Visit Reason: BPH WITH LUTS Speciality: Acuity: Enc Type: Outpatient Med Service: Surgery Arrival: 08/08/2024 12:42:16 Discharge: Dispo Type: Address: [address] [place] [id number] Provider Notes: Diagnosis: Other obstructive and reflux uropathy Problems Active BPH with obstruction/lower urinary tract symptoms Chronic prostatitis Urinary retention Elevated PSA Chronic systolic congestive heart failure 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 Stay on the Flomax for now. Some discharge instructions have been provided. If the bleeding gets severe, or the catheter is clogging from blood clots, you need to go to the ER for irrigation. Will make a one week appt. to remove the catheter. Type Location Start [facility] Urology CALL PAT FT [facility] Urology Surgical Services 08/13/2024 12:00 PM 08/13/2024 12:30 PM Confirmed Patient Education Information: EU - Urolift Discharge Instructions (Custom) OPERATIVE REPORT Observed: 08/08/2024 1:41 PM Status: C Source: [facility] Operative Report Patient: DEMARCUS CALDERON Age: 69 years Sex: Male : 1955 Associated Diagnoses: None Author: John BAPTISTE MD Procedure Operative Information Details: Date/ Time: 08/08/2024 13:41:00. Pre-Op Dx: Acute urinary retention (ODD58-YI R33.8, Working, Medical), BPH with obstruction/lower urinary tract symptoms (FLQ09-DQ N40.1, Working, Medical). Post-Op Dx: Same. Anesthesia [...] procedure (10 mg diazepam, 5/325 mg of Elmira), Local Anesthesia (60cc 2% Xylocaine liquid inserted [...] Result Comment: Electronical ly Signed By: John BAPTISTE MD\.br\Date and Time Signed: 08/08/24 13:51 EDT MAIN OR PREOPERATIVE RECORD Observed: 1:30 PM Status: C Source: [facility] Main OR Preoperative Record Holding Area Document Type FTURO Summary Primary Physician: John BAPTISTE MD Finalized Date/Time: 08/08/24 13:16:05 Pt. Name: KVNGDEMARCUS/Sex: 1955 Male Med Rec #: [id number] Physician: John BAPTISTE MD Financial #: [id number] Pt. Type: O Room/Bed: / Admit/Disch: 08/08/24 [...] No Pain Comment: N/A Skin Integrity Intact, Foyil, Warm, & Dry Vitals - EU Blood [...] Finalized Date/Time: 08/08/24 14:01:11 Pt. Name: DEMARCUS CALDERON/Sex: 1955 Male Med Rec #: [id number] Physician: John BAPTISTE MD Financial #: [id number] Pt. Type: O Room/Bed: / Admit/Disch: 08/08/24 [...] Dian Jackman Role Performed Surgeon - Primary Director Business Systems - Primary Scrub - Primary Time In [...] John BAPTISTE MD, Verified (If Medication Participants Demetrice CAMACHO, [...] CARTRIDGE CARTRIDGE CARTRIDGE Serial Number Lot Number [id number] Probation Agent NEOTRACT NEOTRACT NEOTRACT Catalog ???# [id number] Size Expiration Date 08/19/25 08/19/25 01/22/26 Usage [...] [address] [address]- Additional Instructions: schedule Urolift Patient Education Prostatic Urethral Lift Alexander, Dayanara Murrell, personally scribed for Dr. Baptiste on 06/23/2024 15:40:59. . Documentation recorded by the scribe, Dayanara Murrell, accurately reflects the services(s) I performed and decisions made by me. Authenticated by Dr. Baptiste on 06/23/2024 15:42:23. Portions of this record may have been created with voice recognition artificial intelligence software, specifically [employer], [employer] and or [employer]. Substitutions may have occurred due to the inherent limitations of voice recognition and artificial intelligence software. 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 Elevated PSA GERD [...] Result Comment: Electronical ly Signed By: John BAPTISTE MD\.br\Date and Time [...] including vitamins, herbs, eye drops, creams, and bnsb-zej-rwxkveb medicines. ??? Any problems you or family [...] tells you to take them. ??? Taking pyyn-skt-pjbydzl medicines, vitamins, herbs, and supplements. Surgery safety [...] provider. Document Revised: 12/09/2021 Document Reviewed: 12/09/2021 [employer] Patient Education ? 2023 [employer] UROLOGY OFFICE/CLINIC NOTE Observed: 06/2023 12:25 PM [...] Contact Information ADRIÁN DELACRUZ, SU Esquivel, URL [address] [place] [address] Additional Instructions: Schedule Cysto Patient Education Urinary Incontinence Acute Urinary Retention, Male Prostate Cancer Screening I, Shree Stallworth, personally scribed for MAGED Pedraza on 04/28/2024 12:26:18. . Documentation recorded by the scribe Jatoria Cage_ accurately reflects the services(s) I performed and decisions made by me. Authenticated by Su Cook PA-C on 04/28/2024 13:36:57. 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 Elevated PSA GERD [...] Protein Urine Dipstick: Negative (04/28/24 12:04:00) Specific [place] [facility] Urine Dipstick: 1.020 (04/28/24 12:04:00) Urine Appearance Urine Dipstick: Clear (04/28/24 12:04:00) Urine Color Urine Dipstick: Yellow (04/28/24 12:04:00) Urobilinogen Urine Dipstick: Normal 0.2-1 EU/dl (04/28/24 12:04:00) pH Urine Dipstick: 6.5 (04/28/24 12:04:00) Result Comment: Electronical ly Signed By: SU COOK PA-C\.br\Date and Time Signed: 04/28/24 13:37 EST\.br\Electronically Co-Signed By: Shree Stallworth\.br\Date and Time Co-Signed: 04/28/24 12:30 EST PATIENT [...] Where to find more information ??? The [place] [employer]: www.cancer.org ??? [place] [employer] Association: www.auanet.org Contact a health care [...] provider. Document Revised: 11/07/2021 Document Reviewed: 11/07/2021 [employer] Patient Education ? 2023 [employer].Urology Urinary Incontinence Urinary incontinence refers to a [...] nerve stimulation). ? For women, using a diploma medical assistant to prevent urine leaks. This is a [...] after experiencing incontinence. General instructions ??? Take wyst-jad-wdpkill and prescription medicines only as told by [...] Where to find more information ??? National [place] of Diabetes and Digestive and Kidney Diseases: www.niddk.nih.gov ??? [place] [employer] Association: www.urologyhealth.org Contact a health care [...] provider. Document Revised: 12/17/2020 Document Reviewed: 12/17/2020 [employer] Patient Education ? 2023 [employer] Inc.Acute Urinary Retention, Male Acute urinary retention [...] these instructions at home: Medicines ??? Take ibsm-cdh-ldkdxnx and prescription medicines only as told by [...] provider. Document Revised: 02/02/2021 Document Reviewed: 02/02/2021 [employer] Patient Education ? 2023 [employer]. PSA TOTAL Collected: 4 8:22 AM Status: F Source: [facility] TYPE CODE TESTS RESULT OUT OF RANGE REFERENCE UNITS LAB 2857-1([facility]) PROSTATE SPECIFIC AG:MCNC:PT:S ER/PLAS:QN: 2.3 Normal 0.1-3.5 ng/mL Result Comment: The concentr ation of PSA determined by different manufacturers can vary due to differences in assay methods and reagent specificity. Values obtained from different assay methods cannot be used interchangeably. The methodology used for this result was chemiluminescence using [employer]s Access Hybritech PSA reagent. Performed By: #### [id number] #### [facility] [address] [place] [address] UROLOGY OFFICE/CLINIC NOTE Observed: 1:12 PM Status: [...] by Su Cook PA-C on 04/16/2024 14:04:40. ITatiana PA-C, personally scribed for Su Cook PA-C on 04/16/2024 13:21:20. . Follow-up With When Contact Information SU COOK PA-C, URL [address] [place] [place] [address] Additional Instructions: f/u in 2 weeks w/ PSA and PVR Patient Education Acute Urinary Retention, Male Benign Prostatic Hyperplasia Prostatitis Problem List/Past Medical History Ongoing Chronic systolic congestive heart failure Coronary artery disease involving [place] heart with angina pectoris GERD without esophagitis [...] Protein Urine Dipstick: Negative (04/16/24 09:43:00) Specific [place] Urine Dipstick: 1.015 (04/16/24 09:43:00) Urine Appearance Urine Dipstick: Clear (04/16/24 09:43:00) Urine Color Urine Dipstick: Light yellow (04/16/24 09:43:00) Urobilinogen Urine Dipstick: Normal 0.2-1 EU/dl (04/16/24 09:43:00) pH Urine Dipstick: 7 (04/16/24 09:43:00) Result Comment: Electronical ly Signed By: SU COOK PA-C\.br\Date and Time [...] these instructions at home: Medicines ??? Take hlzj-ogl-hfirxiq and prescription medicines only as told by [...] Where to find more information ??? National [place] of Diabetes and Digestive and Kidney Diseases: [...] on the type of prostatitis. ??? Take bsch-ywe-jbjnqat and prescription medicines only as told by [...] provider. Document Revised: 03/29/2023 Document Reviewed: 03/29/2023 [employer] Patient Education ? 2023 [employer].Urology Acute Urinary Retention, Male Acute urinary retention [...] these instructions at home: Medicines ??? Take ylwo-lrx-cfquonl and prescription medicines only as told by [...] provider. Document Revised: 02/02/2021 Document Reviewed: 02/02/2021 [employer] Patient Education ? 2023 [employer].Benign Prostatic Hyperplasia Benign prostatic hyperplasia (BPH) is [...] Follow these instructions at home: ??? Take apqu-zsc-ocorbgt and prescription medicines only as told by [...] provider. Document Revised: 11/30/2021 Document Reviewed: 11/30/2021 [employer] Patient Education ? 2023 [employer]. ALLERGIES DATE TYPE / CODE NAME / CODE REACTION SEVERITY SOURCE 02/13/2023 DRUG INGREDI/225487815(SN OMED CT) CODEINE Unknown [facility] Ambulatory 03/17/2021 DRUG/[id number](SNOME D CT) CODEINE-GUAIFENESI N Other [facility] 05/23/2013 DRUG INGREDI/276683700(SN OMED CT) GUAIFENESIN Other [facility] DR/784536755(SNOMED CT) codeine [id number] [facility] Miscellaneous Allergy/705233120(SN OMED CT) No Known Allergies [facility] ENCOUNTERS ADMIT/DISCHARGE ACCOUNT NUMBER ADMITTING ENCOUNTER CLASS LOCATION SOURCE 12/09/2024/12/10/19 [id number] Ambulatory Building:CCB [facility] 12/02/2024/12/03/19 25 [id number] Ambulatory [place] : Exam 7 [facility] 11/21/2024/11/22/19 25 [id number] [facility] 10/31/2024/11/01/19 25 [id number] Kiya [place] [facility] 10/24/2024/10/25/19 25 [id number] Ambulatory Building:DOT [id number] [facility] 10/16/2024/10/19/19 25 [id number] LaciRicardo [facility] [id number]: 1 [facility] 09/24/2024/09/25/19 25 [id number] Ambulatory Building:NOM [facility] EPIC 08/26/2024/08/27/19 25 [id number] Ambulatory [place] : Exam 7 [facility] 08/18/2024/08/19/19 25 [id number] Ambulatory [place] : Exam 2 [facility] 08/15/2024/08/16/19 25 [id number] Ambulatory [place] [facility] 08/08/2024/08/09/19 25 [id number] John BAPTISTE [facility]O [facility] 07/17/2024/07/17/19 25 [id number] Ambulatory Building:NOM [facility] 07/02/2024/07/02/19 25 [id number] Ambulatory Building:NOM [facility] EPIC 06/23/2024/06/23/19 25 [id number] Ambulatory [place] : Exam 1 [facility] 05/15/2024/05/15/20 24 [id number] Ambulatory Building:DOT [id number] [facility] 05/07/2024/05/07/20 24 [id number] Ambulatory Building:NOM [facility] 04/28/2024/04/28/20 24 [id number] Ambulatory [place] : Exam 2 [facility] 04/25/2024 [id number] SU COOK [facility]FT LAB [facility] 04/25/2024/04/25/20 24 [id number] US COOK E Ambulatory FTBuilding :FT LAB [facility] 04/25/2024/04/25/20 24 [id number] Ambulatory [place] : Lab [facility] 04/16/2024/04/16/20 24 [id number] Ambulatory [place]:EU [place] : Exam 2 [facility] 03/26/2024/03/26/20 24 [id number] Ambulatory Building:NOM [facility] EPIC 03/05/2024 [id number] Ambulatory [place] [facility] 02/27/2024/02/27/20 24 [id number] Ambulatory Building:NOM [facility] EPIC PAYERS ENCOUNTER GUARANTOR PAYER SUBSCRIBER SOURCE 12/09/2024 Primary Insurance:HUMANA MEDICARE ADVANTAGEPolicy Number: [id number] Date:2022-05-28 DEMARCUS BRAGG: [id number] [place] [address] [facility] 12/09/2024 Secondary Insurance:TRICAREPolic y Number: [id number] Date:2023-05-28 DEMARCUS BRAGG: [id number] [place] [address] [facility] 12/02/2024 DEMARCUS BRAGG: [address] ATel: ~~(4 1 (HP) Primary Insurance:HUMANAPolicy Number: [id number] Date:1725-66-27HJ [address] [place] [address]ZA: [facility] 12/02/2024 Secondary Insurance: FOR LIFE MEDICARE SECONDARYPolicy Number: [id number] Date:5653-82-54PF [address], [place] [address]VM: DEMARCUS COOPER [facility] 11/21/[address] [place] [address]Scq: (HP) Primary Insurance:Humana [facility] PFFSPolicy Number: [id number] Date:1154-13-21YD [address] [place] [address]HN: Demarcus Bragg: [id number] [place] [address]Xqe: () [facility] 11/21/2024 Secondary Insurance: for LifePolicy Number: [id number] Date:0863-61-01DC [address] [address]ZX: Demarcus Bragg: [id number] [place] [address]Tgs: (HP) [facility] 11/21/2024 Tertiary Insurance:Self PayPolicy Number: Effective Date:2024-10-24 [facility] 10/31/2024 Demarc[address] [place] [place] [address]Tia: (HP) Primary Insurance:Humana [facility] PFFSPolicy Number: [id number] Date:3488-14-85JZ [address] [place] [address]HE: Demarcus GrossmanB: [id number] [place] [address]Agf: (HP) [facility] 10/31/2024 Secondary Insurance: for LifePolicy Number: [id number] Date:6857-02-07EC [address] [place] [address]RM: Demarcus Bragg: [id number] [place] [address]Eel: (HP) [facility] 10/31/2024 Tertiary Insurance:Self PayPolicy Number: Effective Date:2024-10-24 NOT [facility]ENN[facility]wide [facility] 10/24/2024 DEMARCUS BRAGG: [address] [place], [place] [address]Axc: () Primary Insurance:TRICAREPolic y Number: [id number] Date:2022-05-28 DEMARCUS BRAGG: [id number] [place], [place] [address]Wbb: () [facility] 10/24/2024 Secondary Insurance:HUMANA MEDICAREPolicy Number: [id number] Date:2022-05-28 DEMARCUS BRAGG: [id number] [place] [address]Rpf: () [facility] 10/16/[address] [place] [address]Edh: (HP) Primary Insurance:Humana MCR PFFSPolicy Number: [id number] Date:4088-61-15RZ [address] [place] [address]TU: Demarcus Bragg: [id number] [place] [address]Dxq: () [facility] 10/16/2024 Secondary Insurance: for LifePolicy Number: [id number] Date:3100-73-66BB [address] [place] [address]FJ: Demarcus GrossmanB: [id number] [place] [address]Ubh: (HP) [facility] 10/16/2024 Tertiary Insurance:MedicarePoli cy Number: [id number] Date:2024-10-16 Demarcus Jose GrossmanB: [id number] [place] [address]Xfm: (HP) [facility] 10/16/2024 Tertiary Insurance:Self PayPolicy Number: Effective Date:2024-10-16 NOT GIVENNationwide [facility] 09/24/2024 DEMARCUS BRAGG: [address] [place] [address]Ftk: () Primary Insurance:HUMANA MEDICARE ADVANTAGEPolicy Number: [id number] Date:2022-05-28 DEMARCUS GROSSMANB: [id number] [place] [address] [facility] EPIC 09/24/2024 Secondary Insurance:TRICAREPolic y Number: [id number] Date:2023-05-28 DEMARCUS GROSSMANB: [id number] [address] [facility] [place] [address] [facility] EPIC 08/26/2024 DEMARCUS BRAGG: [address] ATel: ~~(4 1 (HP) Primary Insurance:HUMANAPolicy Number: [id number] Date:7609-28-50GE [address] [place] [address]AA: DEMARCUS COOPER [facility] 08/26/2024 Secondary Insurance: FOR LIFE MEDICARE SECONDARYPolicy Number: [id number] Date:3341-97-90WK [address] [place] [address]XF: DEMARCUS COOPER [facility] 08/18/2024 DEMARCUS GROSSMANB: [id number] [address] ATel: ~~(4 1 (HP) Primary Insurance:HUMANAPolicy Number: [id number] Date:5530-15-62PK [address] [place] [address]RC: DEMARCUS COOPER [facility] 08/18/2024 Secondary Insurance: FOR LIFE MEDICARE SECONDARYPolicy Number: [id number] Date:6924-89-62GW [address], [place] [address]WG: DEMARCUS COOPER [facility] 08/15/2024 DEMARCUS GROSSMANB: [id number] [address] ATel: ~~(4 1 (HP) Primary Insurance:HUMANAPolicy Number: [id number] Date:6199-02-44NB [address] [place] [address]HI: DEMARCUS COOPER [facility] 08/15/2024 Secondary Insurance: FOR LIFE MEDICARE SECONDARYPolicy Number: [id number] Date:5264-35-63GG [address], [place] [address]DY: DEMARCUS COOPER [facility] 08/08/2024 DEMARCUS GROSSMANB: [id number] [address] ATel: ~~(4 1 (HP) Primary Insurance:HUMANAPolicy Number: [id number] Date:4291-13-15ZG [address] [place] [address]NT: DEMARCUS COOPER [facility] 08/08/2024 Secondary Insurance: FOR LIFE MEDICARE SECONDARYPolicy Number: [id number] Date:3663-03-79WK [address] [address]AI: [facility]ON[facility] 07/17/2024 DEMARCUS Garcia YEMI: [id number] [address] [address]Yjs: (HP) Primary Insurance:TRICAREPolic y Number: [id number] Date:2023-03-10 DEMARCUS Garcia YEMI: [id number] [place] [address] [facility] 07/17/2024 Secondary Insurance:HUMAN MEDICARE ADVANTAGEPolicy Number: [id number] Date:2022-05-28 DEMARCUS Jose BRAGG: [id number] [place] [address] [facility] 07/02/2024 DEMARCUS Jose BRAGG: [address] [place] [address]Igu: (HP) Primary Insurance:TRICAREPolic y Number: [id number] Date:2023-03-10 DEMARCUS Garcia YEMI: [id number] [address] [place] [address] [facility] 07/02/2024 Secondary Insurance:HUMANA MEDICARE ADVANTAGEPolicy Number: [id number] Date:2022-05-28 DEMARCUS Jose BRAGG: [id number] [address] [place] [address] [facility] 06/23/2024 DEMARCUS BRAGG: [id number] [address] ATel: ~~(4 1 (HP) Primary Insurance:HUMANAPolicy Number: [id number] Date:0668-46-37UV [address] [place] [address]AT: DEMARCUS Garcia [facility] 06/23/2024 Secondary Insurance:[facility] CLAIMPolicy Number: [id number] Date:2022-05-28 DEMARCUS COOPER [facility] 06/23/2024 Tertiary Insurance: FOR LIFE MEDICARE SECONDARYPolicy Number: Effective Date:9739-88-17RQANNELIESE JAIME [address]EP: DEMARCUS COOPER [facility] 05/15/2024 DEMARCUS Jose ALIZEB: [id number] [address] [place], [place] [address]Ybr: () Primary Insurance:TRICAREPolic y Number: [id number] Date:2022-05-28 DEMARCUS GROSSMANB: [id number] [place], [place] [address]Xni: () [facility] 05/15/2024 Secondary Insurance:HUMAN MEDICAREPolicy Number: [id number] Date:2022-05-28 DEMARCUS GROSSMANB: [id number] [place] [address]Wqw: () [facility] 05/07/2024 DEMARCUS GROSSMANB: [id number] [place] [address]Dmu: () Primary Insurance:TRICAREPolic y Number: [id number] Date:2023-03-10 DEMARCUS GROSSMANB: [id number] [place] [address] [facility] 05/07/2024 Secondary Insurance:HUMANA MEDICARE ADVANTAGEPolicy Number: [id number] Date:2022-05-28 DEMARCUS GROSSMANB: [id number] [place] [address] [facility] EP[facility] 04/28/2024 DEMARCUS GROSSMANB: [id number] [address] ATel: ~~(4 1 (HP) Primary Insurance:HUMANAPolicy Number: [id number] Date:1357-32-58NV [address] [address]KT: DEMARCUS COOPER [facility] 04/28/2024 Secondary Insurance:[facility] CLAIMPolicy Number: [id number] Date:2022-05-28 DEMARCUS COOPER [facility] 04/25/2024 DEMARCUS CALDERONB: [id number] ATel: ~~(4 1 (HP) Primary Insurance:HUMANAPolicy Number: [id number] Date:5805-22-42KV [address] [address]TP: [facility] 04/25/2024 Secondary Insurance:[facility] CLAIMPolicy Number: [id number] Date:2024-04-25 DEMARCUS COOPER [facility] 04/25/2024 DEMARCUS Garcia SHITALCOLLEENB: [id number] [address] ATel: ~~(4 1 (HP) Primary Insurance:HUMANAPolicy Number: [id number] Date:8340-86-95RN [address] [address]AH: DEMARCUS COOPER [facility] 04/25/2024 Secondary Insurance:[facility] CLAIMPolicy Number: [id number] Date:2022-05-28 DEMARCUS COOPER [facility] 04/16/2024 DEMARCUS Garcia SHITALCOLLEENB: [id number] [address] ATel: ~~(4 1 (HP) Primary Insurance:HUMANAPolicy Number: [id number] Date:3922-32-72KC [address] [address]NF: DEMARCUS COOPER [facility] 04/16/2024 Secondary Insurance: [facility] CLAIMPolicy Number: [id number] Date:2022-05-28 DEMARCUS COOPER [facility] 04/16/2024 Tertiary Insurance: FOR LIFE MEDICARE SECONDARYPolicy Number: Effective Date:6950-72-26[place] [address]OC: DEMARCUS Jose COOPER [facility] 03/26/2024 DEMARCUS GROSSMANB: [id number] [place] [address]Dwv: (HP) Primary Insurance:TRICAREPolic y Number: [id number] Date:2023-03-10 DEMARCUS GROSSMANB: [id number] [place] [address] [facility] 03/26/2024 Secondary Insurance:HUMANA MEDICARE ADVANTAGEPolicy Number: [id number] Date:2022-05-28 DEMARCUS GROSSMANB: [id number] [place] [address] [facility] 02/27/2024 DEMARCUS GROSSMANB: [id number] [place] [address]Hdi: (HP) Primary Insurance:TRICAREPolic y Number: [id number] Date:2023-03-10 DEMARCUS GROSSMANB: [id number] [place] [address] [facility] 02/27/2024 Secondary Insurance:HUMANA MEDICARE ADVANTAGEPolicy Number: [id number] Date:2022-05-28 DEMARCUS GROSSMANB: [id number] [place] [address] [facility] EPIC
[2025-02-24 10:23] VITALS: BP 163/112; PULSE 52; TEMP 36.8; O2SAT 96; BMI 35.0
--- NOTE | 2025-02-24 11:32 | XR_ITS ---
The [address] [address] Patient Name: DEMARCUS CALDERON MRN: [id number] date: 1955 Sex: M Assigned Patient Location: ER Current Patient Location: ER Accession/Order Number: [id number] Exam Date: 02/24/2025 11:22 Report Date: 02/24/2025 12:16 At the request of: GILBERTO ALSTON DO Procedure: XR elbow LT min 3V CLINICAL HISTORY: Left shoulder and elbow pain since fall 2 days ago LEFT SHOULDER - 3 views COMPARISON: None AP, Y and Grashey views were obtained. There is no evidence of fracture or dislocation. Minor degenerative changes visualized at the acromioclavicular joint and greater tuberosity. There are no significant soft tissue abnormalities. XR/XR shoulder LT min 2V IMPRESSION: NO ACUTE BONY INJURY. LEFT ELBOW - 3 VIEWS COMPARISON: None AP, lateral and oblique views were obtained. There is no definite acute fracture or dislocation. Small enthesophytes are visualized at the humeral epicondyles and insertion of triceps at the posterior olecranon. There is minimal spurring at the trochlear notch. There is a tiny corticated bony density adjacent to the lateral radial neck which also appears chronic and may be degenerative. There are no significant soft tissue abnormalities. There is no elbow effusion. IMPRESSION: DEGENERATIVE CHANGES. NO DEFINITE ACUTE BONY INJURY. Impression dictated by: Lisa Barillas M.D. 02/24/2025 12:16 PM Dictation Location: [place] [address] Electronically authenticated by: [id number] Y Date: 02/24/2025 12:16
--- NOTE | 2025-02-24 11:32 | XR_ITS ---
The [address] [address] Patient Name: DEMARCUS CALDERON MRN: [id number] date: 1955 Sex: M Assigned Patient Location: ER Current Patient Location: ER Accession/Order Number: [id number] Exam Date: 02/24/2025 11:22 Report Date: 02/24/2025 12:16 At the request of: GILBERTO ALSTON DO Procedure: XR elbow LT min 3V CLINICAL HISTORY: Left shoulder and elbow pain since fall 2 days ago LEFT SHOULDER - 3 views COMPARISON: None AP, Y and Grashey views were obtained. There is no evidence of fracture or dislocation. Minor degenerative changes visualized at the acromioclavicular joint and greater tuberosity. There are no significant soft tissue abnormalities. XR/XR elbow LT min 3V IMPRESSION: NO ACUTE BONY INJURY. LEFT ELBOW - 3 VIEWS COMPARISON: None AP, lateral and oblique views were obtained. There is no definite acute fracture or dislocation. Small enthesophytes are visualized at the humeral epicondyles and insertion of triceps at the posterior olecranon. There is minimal spurring at the trochlear notch. There is a tiny corticated bony density adjacent to the lateral radial neck which also appears chronic and may be degenerative. There are no significant soft tissue abnormalities. There is no elbow effusion. IMPRESSION: DEGENERATIVE CHANGES. NO DEFINITE ACUTE BONY INJURY. Impression dictated by: Lisa Barillas M.D. 02/24/2025 12:16 PM Dictation Location: [place] [address] Electronically authenticated by: [id number] Y Date: 02/24/2025 12:16
[2025-02-24 12:49] VITALS: BP 136/83; PULSE 69; O2SAT 96
--- NOTE | 2025-02-24 16:28 | ED.GENADUL1 ---
HPI HPI - General Adult General Chief complaint: Fall Stated complaint: UPPER EXTREMITY INJURY Time Seen by Provider: 02/24/25 10:59 Source: patient Mode of arrival: walk-in Limitations: no limitations History of Present Illness HPI narrative: Patient is a 70-year-old male presenting to the emergency department for evaluation of left shoulder and left elbow injury. Patient states that yesterday he tripped, fell, and landed on his left elbow. He states that he is having a hard time fully flexing at the elbow. He is concerned he might of broken it. He denies any other injuries. He did not hit his head or lose consciousness. He is not on blood thinners. He denies any numbness/tingling/weakness in the left upper extremity. Related Data Home Medications ?Medication ?Instructions ?Recorded ?Confirmed omeprazole 20 mg capsule,delayed 20 mg PO Q24H PRN heartburn 07/22/23 02/17/25 release tamsulosin 0.4 mg capsule 0.8 mg PO .qhs 07/22/23 02/17/25 furosemide 40 mg tablet (Lasix) 40 mg PO DAILY PRN edema 10/09/24 02/17/25 budesonide-formoterol HFA 160 2 inh inhalation BID 10/18/24 02/17/25 mcg-4.5 mcg/actuation aerosol inhaler (Breyna) dapagliflozin propanediol 10 mg 10 mg PO DAILY 10/18/24 02/17/25 tablet fluticasone propionate 115 2 inh inhalation BID 10/18/24 02/17/25 mcg-salmeterol 21 mcg/actuation HFA inhaler (Advair HFA) sacubitril 24 mg-valsartan 26 mg 1 tab PO BID 10/18/24 02/17/25 tablet (Entresto) spironolactone 25 mg tablet 12.5 mg PO DAILY 10/18/24 02/17/25 Previous Rx's ?Medication ?Instructions ?Recorded albuterol sulfate 90 mcg/actuation 2 inh inhalation Q6H PRN shortness 12/25/23 aerosol inhaler (Ventolin HFA) of breath or wheezing #6.7 grams ipratropium 0.5 mg-albuterol 3 mg 3 ml inhalation Q6H PRN shortness 02/02/24 (2.5 mg base)/3 mL nebulization of breath #90 mL soln carvedilol 12.5 mg tablet (Coreg) 12.5 mg PO BID #60 tabs 10/13/24 cetirizine 10 mg tablet 10 mg PO QD #30 tabs 10/13/24 fluticasone propionate 50 2 spray intranasal QD #16 grams 10/13/24 mcg/actuation nasal spray,suspension montelukast 10 mg tablet 10 mg PO DAILY #30 tabs 10/13/24 (Singulair) benzonatate 200 mg capsule 200 mg PO TID PRN cough 10 days 10/21/24 #30 caps fluconazole 100 mg tablet 100 mg PO QD #10 tabs 10/21/24 levofloxacin 750 mg tablet 750 mg PO DAILY 10 days #10 tabs 10/21/24 amoxicillin 875 mg-potassium 1 tab PO BID #20 tabs 02/17/25 clavulanate 125 mg tablet ipratropium 0.5 mg-albuterol 3 mg 3 ml inhalation Q8H PRN wheezing 5 02/17/25 (2.5 mg base)/3 mL nebulization days #90 mL soln prednisone 20 mg tablet 20 mg PO BID 5 days #10 tabs 02/17/25 Allergies Allergy/AdvReac Type Severity Reaction Status Date / Time codeine AdvReac Intermediate Hallucinati Verified 02/24/25 10:23 ng Opioid HPI Opioid Management Most Recent Opioid Data: Last Pain Scale 5 Today, 12:10 Last ORT Total Score 0 10/18/24, 23:12 Last ORT Risk Category Low Risk 10/18/24, 23:12 Review of Systems ROS Status of ROS 10 or more systems reviewed and unremarkable except as noted in history and below [facility] Medical History Pneumonia due to COVID-19 virus ?U07.1 - COVID-19 (ICD-10) ?J12.82 - Pneumonia due to coronavirus disease 2019 (ICD-10) COVID-19 ?U07.1 - COVID-19 (ICD-10) Acute on chronic congestive heart failure ?I50.9 - Heart failure, unspecified (ICD-10) COPD exacerbation ?J44.1 - Chronic obstructive pulmonary disease with (acute) exacerbation (ICD-10) Congestive heart failure ?I50.9 - Heart failure, unspecified (ICD-10) BPH (benign prostatic hyperplasia) ?N40.0 - Benign prostatic hyperplasia without lower urinary tract symptoms (ICD-10) CAD (coronary artery disease) ?I25.10 - Atherosclerotic heart disease of [place] coronary artery without angina pectoris (ICD-10) GERD (gastroesophageal reflux disease) ?K21.9 - Gastro-esophageal reflux disease without esophagitis (ICD-10) Hypertension ?I10 - Essential (primary) hypertension (ICD-10) COPD (chronic obstructive pulmonary disease) ?J44.9 - Chronic obstructive pulmonary disease, unspecified (ICD-10) Bronchitis ?J40 - Bronchitis, not specified as acute or chronic (ICD-10) Emphysema of lung ?J43.9 - Emphysema, unspecified (ICD-10) Heart attack ?I21.9 - Acute myocardial infarction, unspecified (ICD-10) COPD exacerbation ?J44.1 - Chronic obstructive pulmonary disease with (acute) exacerbation (ICD-10) COVID-19 ?U07.1 - COVID-19 (ICD-10) Surgical History H/O sinus surgery ?Z98.890 - Other specified postprocedural states (ICD-10) H/O shoulder surgery ?Z98.890 - Other specified postprocedural states (ICD-10) H/O heart artery stent ?Z95.5 - Presence of coronary angioplasty implant and graft (ICD-10) Family History Aunt Family history of cancer Mother Family history of diabetes mellitus Brother Family history of hypertension Father Family history of hypertension Social History Within the past year, how often did you have a drink containing alcohol: never Score interpretation: A score less than 4 is consistent with normal alcohol consumption. 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 Known occupational exposures/hazards: No Highest level of school completed/degree received: high school graduate Are you now , , , , never or living with a partner: In a typical week, how many times do you talk on the telephone with family, friends, or neighbors: 3 or more times per week How often do you get together with friends or relatives: 3 or more times per week How often do you attend jainism or sikh services: never Little interest or pleasure in doing things: not at all Feeling down, depressed, or hopeless: not at all Feel stressed/tense/nervous/anxious/difficulty sleeping: not at all Do you think of yourself as: straight/heterosexual Gender Identity: male Exam Narrative Exam Narrative: CONSTITUTIONAL: Well-appearing, answering questions and following commands appropriately SKIN: Was warm and dry. EYES: Sclerae white. EARS, NOSE, THROAT: Moist oral mucosa. RESPIRATORY: Nonlabored respirations. CARDIOVASCULAR: Normal rate and regular rhythm. 2+ radial pulse bilaterally. Left upper extremity is warm and well-perfused. GASTROINTESTINAL: Abdomen is nondistended. MUSCULOSKELETAL: There is mild tenderness to palpation throughout the left elbow. No joint effusion. He has good range of motion in the left elbow, however slightly limited with elbow flexion. No peripheral edema. Mild tenderness palpation to the left shoulder. Full range of motion in the left shoulder. No deformities. NEUROLOGIC: Patient is awake and alert. Good strength and sensation to light touch in the bilateral upper extremities. Constitutional Vital Signs, click to edit/add: Last Vital Signs Temp 98.2 F 02/24/25 10:23 Pulse 69 02/24/25 12:49 Resp 16 02/24/25 12:49 BP 136/83 02/24/25 12:49 Pulse Ox 96 02/24/25 12:49 O2 Del Method Room Air 02/24/25 12:49 Course Vital Signs Vital signs: Vital Signs Temperature 98.2 F 02/24/25 10:23 Pulse Rate 52 L 02/24/25 10:23 Respiratory Rate 20 02/24/25 10:23 Blood Pressure 163/112 H 02/24/25 10:23 Pulse Oximetry 96 02/24/25 10:23 Temperature 98.2 F 02/24/25 10:23 Pulse Rate 69 02/24/25 12:49 Respiratory Rate 16 02/24/25 12:49 Blood Pressure 136/83 02/24/25 12:49 Pulse Oximetry 96 02/24/25 12:49 Oxygen Delivery Method Room Air 02/24/25 12:49 Medical Decision Making MDM Narrative Medical decision making narrative: Patient is a 70-year-old male presented to the emergency department for evaluation of left elbow and shoulder injury after mechanical fall from a standing height yesterday. Vital signs on arrival are within normal limits. He is afebrile and hemodynamically stable. Examination as noted above, however is notable for tenderness palpation at the left elbow joint with mild limited range of motion with elbow flexion. The extremity is neurovascularly intact and is warm/well-perfused. Differential diagnose includes fracture, dislocation, contusion, sprain. X-rays were obtained. He declined analgesics. X-rays of the left shoulder and elbow independently reviewed and interpreted by myself and radiology demonstrated no acute osseous abnormalities. I do believe the patient is stable for discharge. Patient's presentation is most likely consistent with bony contusions. They were instructed to follow up with his PCP as needed. Return precautions were given including any new or worsening symptoms. Patient understands and agrees to the plan. FINAL IMPRESSION: #Acute left elbow and shoulder contusion DISPOSITION: Discharged home CONDITION: Good Imaging Data left elbow xray: Attestation: I personally reviewed and interpreted this imaging study as follows: Radiologist's impression: ITS Impressions Elbow X-Ray 02/24/25 11:32 IMPRESSION: NO ACUTE BONY INJURY. LEFT ELBOW - 3 VIEWS COMPARISON: None AP, lateral and oblique views were obtained. There is no definite acute fracture or dislocation. Small enthesophytes are visualized at the humeral epicondyles and insertion of triceps at the posterior olecranon. There is minimal spurring at the trochlear notch. There is a tiny corticated bony density adjacent to the lateral radial neck which also appears chronic and may be degenerative. There are no significant soft tissue abnormalities. There is no elbow effusion. IMPRESSION: DEGENERATIVE CHANGES. NO DEFINITE ACUTE BONY INJURY. Impression dictated by: Lisa Barillas M.D. 02/24/2025 12:16 PM Dictation Location: [place] [address] Electronically authenticated by: [id number] Y Date: 02/24/2025 12:16 Shoulder X-Ray 02/24/25 11:32 IMPRESSION: NO ACUTE BONY INJURY. LEFT ELBOW - 3 VIEWS COMPARISON: None AP, lateral and oblique views were obtained. There is no definite acute fracture or dislocation. Small enthesophytes are visualized at the humeral epicondyles and insertion of triceps at the posterior olecranon. There is minimal spurring at the trochlear notch. There is a tiny corticated bony density adjacent to the lateral radial neck which also appears chronic and may be degenerative. There are no significant soft tissue abnormalities. There is no elbow effusion. IMPRESSION: DEGENERATIVE CHANGES. NO DEFINITE ACUTE BONY INJURY. Impression dictated by: Lisa Barillas M.D. 02/24/2025 12:16 PM Dictation Location: [place] [address] Electronically authenticated by: [id number] Y Date: 02/24/2025 12:16 Discharge Plan Discharge Chief Complaint: Fall Clinical Impression: Elbow contusion Patient Disposition: Home, Self-Care Time of Disposition Decision: 12:26 Condition: Good Mode of Transportation: Private Vehicle Prescriptions / Home Meds: No Action albuterol sulfate [Ventolin HFA] 90 mcg/actuation HFA aerosol inhaler 2 inh inhalation Q6H PRN (Reason: shortness of breath or wheezing) Qty: 6.7 0RF tamsulosin 0.4 mg capsule 0.8 mg PO .qhs omeprazole 20 mg capsule,delayed release(DR/EC) 20 mg PO Q24H PRN (Reason: heartburn) ipratropium-albuterol 0.5 mg-3 mg(2.5 mg base)/3 mL solution for nebulization 3 ml inhalation Q6H PRN (Reason: shortness of breath) Qty: 90 0RF furosemide [Lasix] 40 mg tablet 40 mg PO DAILY PRN (Reason: edema) cetirizine 10 mg Tablet 10 mg PO QD Qty: 30 11RF fluticasone propionate 50 mcg/actuation [place],Suspension 2 spray intranasal QD Qty: 16 11RF montelukast [Singulair] 10 mg tablet 10 mg PO DAILY Qty: 30 11RF carvedilol [Coreg] 12.5 mg tablet 12.5 mg PO BID Qty: 60 11RF Rx Instructions: must administer with a meal/food spironolactone 25 mg tablet 12.5 mg PO DAILY sacubitril-valsartan [Entresto] 24-26 mg tablet 1 tab PO BID budesonide-formoterol [Breyna] 160-4.5 mcg/actuation HFA aerosol inhaler 2 inh inhalation BID fluticasone propion-salmeterol [Advair HFA] 115-21 mcg/actuation HFA aerosol inhaler 2 inh inhalation BID dapagliflozin propanediol 10 mg tablet 10 mg PO DAILY fluconazole 100 mg Tablet 100 mg PO QD Qty: 10 0RF benzonatate 200 mg capsule 200 mg PO TID PRN (Reason: cough) 10 Days Qty: 30 0RF levofloxacin 750 mg tablet 750 mg PO DAILY 10 Days Qty: 10 0RF prednisone 20 mg tablet 20 mg PO BID 5 Days Qty: 10 0RF ipratropium-albuterol 0.5 mg-3 mg(2.5 mg base)/3 mL solution for nebulization 3 ml inhalation Q8H PRN (Reason: wheezing) 5 Days Qty: 90 0RF amoxicillin-pot clavulanate 875-125 mg tablet 1 tab PO BID Qty: 20 0RF Print Language: Somali Instructions: Contusion in Adults (ED) Referrals: Torres Klein MD [Primary Care Provider, Family Practice] - 1 week Discharge Date/Time: 02/24/25 12:51
== END 2025-02-24 12:51 | disposition home or self-care (01) ==
PROVIDERS: Emergency Provider Student in an Organized Health Care Education/Training Program; PCP Family Medicine
DX: S50.02XA Contusion of left elbow, initial encounter (principal); W01.0XXA Fall on same level from slipping, tripping and stumbling without subsequent striking against object, initial encounter; Z87.891 Personal history of nicotine dependence
CPT/HCPCS: 73030; 73080; 99284

== ENCOUNTER 2025-03-16 08:14 | Outpatient (OUT) | payer MEDICARE, OTHER, SELFPAY ==
--- OUTSIDE RECORDS SUMMARY | 2025-03-16 08:23 | XMS_ITS | Encounter Summary ---
Author Organization [facility] Address [address] [place] [address] Care Team Providers Care Deicer Kit Assembler Name Role Phone Chun Hobbs MD Unavailable [phone] Chun Hobbs MD Primary Care Provider [phone] Tootie Jacobson RN Unavailable [phone] Rene Castro MD Unavailable [phone] Orquidea Carreon RN Unavailable [phone] Orquidea Shah RN Unavailable [phone] Evens Morgan DO Unavailable [phone] John Baptiste MD Unavailable [phone] Jessica Jenkins CAR WASHER Unavailable [phone] Unallocated, Noms Provider Primary Care Provi gonzales Torres Klein MD Primary Care Provider [phone] Encounter Details Date Type Department Care Team (Late st Contact Info) Description 02/19/2024 Orders Only [facility] [place] [facility] [address] [place] [address] A, Unknown Practice [address] [place] [address] Social History Tobacco Use Types Packs/Day [...] documented as of this encounter Care Teams Deicer Kit Assembler Relationship Specialty Start Date End Date Chun Hobbs MD [address] [place] [address] PCP - [employer] 05/28/22 01/28/25 Chun Hobbs MD [address] [place] [address] PCP - General Internal Medicine 10/03/22 10/06/24 Unallocated, Noms ProviderMD [address] [place] [address] PCP - General Family Medicine 10/07/24 10/16/24 Torres Klein MD [address] [place] [address] PCP - General Family Medicine 10/17/24 Tootie Jacobson, DOUG [address] [place] [address] Registered Nurse Internal Medicine 08/10/23 03/28/24 Rene Castro MD [address] [facility] [address] [place] [address] Referring Physician Cardiology 09/05/23 Orquidea Carreon RN [address] [place], [place] [address] Registered Nurse Family Medicine 03/28/24 06/03/24 Orquidea Shah RN [address] [place] [address] Registered Nurse Internal Medicine 06/03/24 10/07/24 Evens Morgan DO [address] [facility] [address] [place] [address] Referring Physician Pulmonary Disease 09/24/24 John Baptiste MD [address] [place] [address] Referring Physician Urology 09/24/24 Jessica Jenkins NP [address] [place] [address] Nurse Practitioner Family Medicine 09/24/24 [facility] 09/24/24 documented as of this encounter
--- OUTSIDE RECORDS SUMMARY | 2025-03-16 08:23 | XMS_ITS | Encounter Summary ---
Author Organization [facility] Address [address] [place] [address] Care Team Providers Care Dredge Mechanic Name Role Phone Chun Hobbs MD Unavailable [phone] Chun Hobbs MD Primary Care Provider [phone] Tootie Jacobson RN Unavailable [phone] Rene Castro MD Unavailable [phone] Orquidea Carreon RN Unavailable [phone] Orquidea Shah RN Unavailable [phone] Evens Morgan DO Unavailable [phone] John Baptiste MD Unavailable [phone] Jessica Jenkins BELL CLEANER Unavailable [phone] Unallocated, Noms Provider Primary Care Provi gonzales Torres Klein MD Primary Care Provider [phone] Encounter Details Date Type Department Care Team (Late st Contact Info) Description 12/24/2023 Orders Only [facility] [place] [facility] [address] [place] [address] A, Unknown Practice [address] [place] [address] Social History Tobacco Use Types Packs/Day [...] documented as of this encounter Care Teams Dredge Mechanic Relationship Specialty Start Date End Date Chun Hobbs MD [address] [place] [address] PCP - [employer] 05/28/22 01/28/25 Chun Hobbs MD [address] [place] [address] PCP - General Internal Medicine 10/03/22 10/06/24 Unallocated, Esvin Landis MD [address] [place] [address] PCP - General Family Medicine 10/07/24 10/16/24 Torres Klein MD [address] [place] [address] PCP - General Family Medicine 10/17/24 Tootie Jacobson, DOUG [address] [place] [address] Registered Nurse Internal Medicine 08/10/23 03/28/24 Rene Castro MD [address] [facility] [address] [place] [address] Referring Physician Cardiology 09/05/23 Orquidea Carreon, DOUG [address] [place] [address] Registered Nurse Family Medicine 03/28/24 06/03/24 Orquidea Shah, DOUG [address] [place] [address] Registered Nurse Internal Medicine 06/03/24 10/07/24 Evens Morgan DO [address] [place] [address] Referring Physician Pulmonary Disease 09/24/24 John Baptiste MD [address] [facility] [place] [address] Referring Physician Urology 09/24/24 Jessica Jenkins NP [address] [place] [address] Nurse Practitioner Family Medicine 09/24/24 [facility] 09/24/24 documented as of this encounter
--- OUTSIDE RECORDS SUMMARY | 2025-03-16 08:23 | XMS_ITS | Encounter Summary ---
Author Organization [facility] Address [address] [place] [address] Care Team Providers Care Purchaser Automotive Parts Name Role Phone Sera Flower MD Unavailable [phone] Sera Flower MD Primary Care Provider [phone] Tootie Jacobson RN Unavailable [phone] Rene Castro MD Unavailable [phone] Orquidea Carreon RN Unavailable [phone] Orquidea Shah RN Unavailable [phone] Chalino Phoenix DO Unavailable [phone] John Baptiste MD Unavailable [phone] Jessica Jenkins SECURITY INSTALLATION SALES TECHNICIAN Unavailable [phone] Unallocated, Noms Provider Primary Care Provi gonzales Torres Klein MD Primary Care Provider [phone] Encounter Details Date Type Department Care Team (Late st Contact Info) Description 01/18/2024 Clinisync Result Encounter [facility] Department Unsolicited [...] Start Date Job End Date retired- [employer] (21 yrs), Not on file Not on fi le Not on file documented as of this encounter Plan of Treatment Not on file documented as of this encounter Procedures Procedure Name Priority Date/Time Associated Diagnosis Comments CT CHEST HIGH RESOLUTION 01/18/2024 5:57 AM EDT documented in this encounter Results * CT CHEST HIGH RESOLUTION (01/18/2024 5:57 AM EDT) Anatomical Region Laterality Modality Radiographic Maribel ging 01/18/2024 5:57 AM EDT Narrative 01/18/2024 6:00 [place] [address] CT Scan Report Signed Patient: DEMARCUS PANCHAL MR#: [id number] : 1955 Acct:[id number] Age/Sex: 69 / M ADM Date: 01/17/24 Loc: CT Attending Dr: Chalino Phoenix D.O. Ordering Physician: Chalino Phoenix D.O. Date of Service: 01/17/24 Procedure(s): CT chest high res Accession Number(s): [id number] cc: SERA FLOWER [place] [id number] Patient Name: DEMARCUS PANCHAL MRN: [id number] date: 1955 Sex: M Assigned Patient Location: CT Current Patient Location: Accession/Order Number: [id number] Exam Date: 01/17/2024 07:55 Report Date: 01/18/2024 [...] Dictated By: Ethan Palencia M.D. Signed By: 01/18/2400 DD/ 0557 TD/TT: Business Objects Developer: Procedure Note Radiology, Radiologist, MD - 01/18/2024 [place] [address] CT Scan Report Signed Patient: DEMARCUS PANCHAL R#: [id number] : 1955cct:[id number] Age/Sex: 69 / MADM Date: 01/17/24 Loc: CT Attending Dr: Chalino Phoenix D.O. Ordering Physician: Chalino Phoenix D.O. Date of Service: 01/17/24 Procedure(s): CT chest high res Accession Number(s): [id number] cc: SERA FLOWER [place] [address] Patient Name: DEMARCUS PANCHAL MRN: [id number] date: 1955 Sex: M Assigned Patient Location: CT Current Patient Location: Accession/Order Number: [id number] Exam Date: 01/17/2024 07:55 Report Date: 01/18/2024 05:57 At the request of: CHALINO PHOENIX Procedure: CT chest high res EXAMINATION: CT chest high res HISTORY: Pulmonary Fibrosis COMPARISON: CT chest 12/24/2023 TECHNIQUE: Axial images were obtained at 10 mm intervals duringinspiration and expiration in the supine and prone positions. No IV contrast given. Dose reduction techniques were achieved by using automated exposure controland/or adjustment of mA and/or kV according to patient size and/or use ofiterative reconstruction technique. FINDINGS: LUNGS: Scattered areas of mild peripheral fibrosis. Minimalbronchiectasis. No significant emphysematous changes. Scattered areas of mild coarsening of interstitial markings. PLEURA: No mass, effusion, or pneumothorax. GIOVANNA: No mass or adenopathy. MEDIASTINUM: No mass or adenopathy. HEART: No significant enlargement or pericardial effusion.. Coronaryarteries: AORTA: No aneurysm.. CHEST WALL: No mass or axillary adenopathy LIMITED ABDOMEN: No suspicious findings. Limited images of the upperabdomen. OTHER: Negative. CT/CT chest high res IMPRESSION: 1. No appreciable acute infiltrates. 2. Scattered areas of mild peripheral fibrosis and minimal chronic interstitial changes. Electronically authenticated by: ETHAN PALENCIA Date: 01/18/2024 05:57 Dictated By: Ethan Palencia M.D. Signed By:01/18/24 0600 DD/ 0557 TD/TT: Business Objects Developer: Generic External Data Provider IMG XR PROCEDURES Final Result documented in this encounter Visit Diagnoses Not on filedocumented in this encounter Additional Health Concerns Assessment Noted Time PHQ-9 Depression Total Score: 1 09/20/19 24 1:00 PM EDT A fall risk assessment has been complete d for the patient 08/10/2023 1:18 PM EDT documented as of this encounter Care Teams Purchaser Automotive Parts Relationship Specialty Start Date End Date Sera Flower MD [address] [place] [address] PCP - [employer] 05/28/22 01/28/25 Sera Flower MD [address] [place] [address] PCP - General Internal Medicine 10/03/22 10/06/24 Unallocated, Esvin Landis MD [address] [place] [address] PCP - General Family Medicine 10/07/24 10/16/24 Torres Klein MD [address] [facility] [place] [address] PCP - General Family Medicine 10/17/24 Tootie Jacobson RN [address] [place] [address] Registered Nurse Internal Medicine 08/10/23 03/28/24 Rene Castro MD [address] [facility] [address] [place] [address] Referring Physician Cardiology 09/05/23 Orquidea Carreon, DOUG [address] [facility] [place] [address] Registered Nurse Family Medicine 03/28/24 06/03/24 Orquidea Shah, DOUG [address] [place] [address] Registered Nurse Internal Medicine 06/03/24 10/07/24 Chalino Phoenix DO [address] [place] [address] Referring Physician Pulmonary Disease 09/24/24 John Baptiste MD [address] [facility] [place] [address] Referring Physician Urology 09/24/24 Jessica Jenkins NP [address] [place] [address] Nurse Practitioner Family Medicine 09/24/24 [facility] 09/24/24 documented as of this encounter
--- OUTSIDE RECORDS SUMMARY | 2025-03-16 08:23 | XMS_ITS | Encounter Summary ---
Author Organization [facility] Address [address] [place] [address] Care Team Providers Care Hand Cloth Examiner Name Role Phone Chun Hobbs MD Unavailable [phone] Chun Hobbs MD Primary Care Provider [phone] Tootie Jacobson RN Unavailable [phone] Rene Castro MD Unavailable [phone] Orquidea Carreon RN Unavailable [phone] Orquidea Shah RN Unavailable [phone] Evens Morgan DO Unavailable [phone] John Baptiste MD Unavailable [phone] Jessica Jenkins ETHNOARCHAEOLOGY PROFESSOR Unavailable [phone] Unallocated, Noms Provider Primary Care Provi gonzales Torres Klein MD Primary Care Provider [phone] Encounter Details Date Type Department Care Team [...] Start Date Job End Date retired- [employer] (21 yrs), Not on file Not on [...] AM EDT Narrative 01/18/2024 8:08 [place] [address] Respiratory Report Signed Patient: DEMARCUS CALDERON MR#: [id number] : 1955 Acct:[id number] Age/Sex: 69 / M ADM Date: 01/17/24 Loc: CT Attending Dr: Evens Morgan D.O. Ordering Physician: Evens Morgan D.O. Date of Service: 01/17/24 Procedure(s): RT pulmonary function test Accession Number(s): [id number] cc: [place] [facility] Test Date: 2024-01-17 Pat Name: DEMARCUS CALDERON Department: Room: - Gender: Male Tray Packer: Dennis Francisco RRT : 1955 Requested By: Evens Morgan Order Number: [id number] Reading MD: Evens Morgan Interpretive Statements Pulmonary [...] D.O. Signed By: 01/18/24807 DD/ 7 TD/TT: Vice President Marketing & Development: Procedure Note Radiology, Radiologist, - 01/18/2024 [place] [address] Respiratory Report Signed Patient: DEMARCUS CALDERON JMR#: [id number] : 1955cct:[id number] Age/Sex: 69 / MADM Date: 01/17/24 Loc: CT Attending Dr: Evens Morgan D.O. Ordering Physician: vEens Morgan D.O. Date of Service: 01/17/24 Procedure(s): RT pulmonary function test Accession Number(s): [id number] cc: [facility] Test Date: 2024-01-17 Pat Name: DEMARCUS CALDERON Department: Room: - Gender: Male Tray Packer: Dennis Francisco RRT : 1955 Requested By: Evens Morgan Order Number: [id number] Reading MD: Evens Morgan Interpretive Statements Pulmonary [...] Morgan D.O. Signed By:01/18/24807 DD/ 7 TD/TT: Vice President Marketing & Development: us Generic External Data Provider [facility] Final Result documented in this encounter Visit Diagnoses Not on filedocumented in this encounter Additional Health Concerns Assessment Noted Time PHQ-9 Depression Total Score: 1 09/20/19 24 1:00 PM EDT A fall risk assessment has been complete d for the patient 08/10/2023 1:18 PM EDT documented as of this encounter Care Teams Hand Cloth Examiner Relationship Specialty Start Date End Date Chun Hobbs MD [address] [place] [address] PCP - [employer] 05/28/22 01/28/25 Chun Hobbs MD [address] [place] [address] PCP - General Internal Medicine 10/03/22 10/06/24 Unallocated, Esvin Landis MD [address] [place] [address] PCP - General Family Medicine 10/07/24 10/16/24 Torres Klein MD [address] [facility] [place] [address] PCP - General Family Medicine 10/17/24 Tootie Jacobson, DOUG [address] [place] [address] Registered Nurse Internal Medicine 08/10/23 03/28/24 Rene Castro MD [address] [facility] [address] [place] [address] Referring Physician Cardiology 09/05/23 Orquidea Carreon RN [address] [place] [address] Registered Nurse Family Medicine 03/28/24 06/03/24 Orquidea Shah RN [address] [place] [address] Registered Nurse Internal Medicine 06/03/24 10/07/24 Evens Morgan DO [address] [place] [address] Referring Physician Pulmonary Disease 09/24/24 John Baptiste MD [address] [facility] [place] [address] Referring Physician Urology 09/24/24 Jessica Jenkins NP [address] [facility] [address] [place] [address] Nurse Practitioner Family Medicine 09/24/24 [facility] 09/24/24 documented as of this encounter
--- OUTSIDE RECORDS SUMMARY | 2025-03-16 08:23 | XMS_ITS | Encounter Summary ---
Author Organization [facility] Address [address] [place] [address] Care Team Providers Care Physician Non Invasive Cardiologist Name Role Phone hCun Hobbs MD Unavailable [phone] Chun Hobbs MD Primary Care Provider [phone] Tootie Jacobson RN Unavailable [phone] Rene Castro MD Unavailable [phone] Orquidea Carreon RN Unavailable [phone] Orquidea Shah RN Unavailable [phone] Evens Morgan DO Unavailable [phone] John Baptiste MD Unavailable [phone] Jessica Jenkins OWNER SPA DIRECTOR Unavailable [phone] Unallocated, Noms Provider Primary Care Provi gonzales Torres Klein MD Primary Care Provider [phone] Encounter Details Date Type Department Care Team (Late st Contact Info) Description 01/15/2024 Orders Only [facility] [place] [facility] [address] [facility] [address] [place] [address] Chun Hobbs MD [address] [facility] [address] [place] [address] Social History Tobacco Use Types Packs/Day [...] Start Date Job End Date retired- [employer] (21 yrs), Not on file Not on [...] documented as of this encounter Care Teams Physician Non Invasive Cardiologist Relationship Specialty Start Date End Date Chun Hobbs MD [address] [facility] [address] [place] [address] PCP - [employer] 05/28/22 01/28/25 Chun Hobbs MD [address] [facility] [address] [place] [address] PCP - General Internal Medicine 10/03/22 10/06/24 Unallocated, Noms Boby, [facility] [place] [address] PCP - General Family Medicine 10/07/24 10/16/24 Torres Klein MD [address] [place] [address] PCP - General Family Medicine 10/17/24 Tootie Jacobson, DOUG [address] [place] [address] Registered Nurse Internal Medicine 08/10/23 03/28/24 Rene Castro MD [address] [facility] [place] [address] Referring Physician Cardiology 09/05/23 Orquidea Carreon, DOUG [address] [place], [place] [address] Registered Nurse Family Medicine 03/28/24 06/03/24 Orquidea Shah RN [address] [place] [address] Registered Nurse Internal Medicine 06/03/24 10/07/24 Evens Morgan DO [address] [place] [address] Referring Physician Pulmonary Disease 09/24/24 John Baptiste MD [address] [facility] [place] [address] Referring Physician Urology 09/24/24 Jessica Jenkins NP [address] [place] [address] Nurse Practitioner Family Medicine 09/24/24 [facility] 09/24/24 documented as of this encounter
--- OUTSIDE RECORDS SUMMARY | 2025-03-16 08:23 | XMS_ITS | Clinical Summary ---
Author Organization [facility] Address [address] [place] [address] Care Team Providers Care Supervisor Fur Dressing Name Role Phone Torres Klein MD Primary Care Provider [phone] Allergies Active Allergy Reactions Criticality Noted Date Comments Codeine Hallucinations,Other ,Nausea And Vomiting,Unknown Low 04/27/2006 Other Reaction(s): Vomiting Codeine-Guaifenesin Other 03/17/2021 Guaifenesin Other Low 05/23/2013 Other Reaction(s): Airway constriction Medications albuterol 90 mcg/actuation inhaler Inhale. 3 Active fluticasone (Flonase) 50 mcg/actuation nasal spray Administer 2 sprays into each nostril in the morning. Active benzonatate (Tessalon) 200 mg capsule Take 200 mg by mouth if needed in the morning, at noon, and at bedtime. Active Advair HFA 230-21 mcg/actuation inhaler Inhale 2 puffs in the morning and at bedtime. 5 Active omeprazole (PriLOSEC) [address] capsule Take 20 mg by mouth before breakfast. 2 Active tamsulosin (Flomax) 0.4 mg 24 hr capsule Take 0.8 mg by mouth in the morning. 4 04/11/20 25 Active cetirizine (ZyrTEC) 10 mg chewable tablet Chew 10 mg in the morning. Active spironolactone (Aldactone) 25 mg tablet Take 25 mg by mouth in the morning. 5 Active empagliflozin (Jardiance) 10 mg Take 10 mg by mouth in the morning. 5 Active montelukast (Singulair) 10 mg tablet Take 10 mg by mouth in the morning. Active ipratropium-alb uteroL (Duo-Neb) 0.5-2.5 mg/3 mL nebulizer solution Take 3 mL by nebulization in the morning, afternoon, and at bedtime. 5 Active metoprolol succinate XL (Toprol-XL) 25 mg 24 hr tabletIndicatio ns:Coronary artery disease involving white earth coronary artery of white earth heart without angina pectoris Take 0.5 tablets (12.5 mg) by mouth once daily as directed. Do not crush or chew. 45 tablet 3 5 12/10/19 26 Active atorvastatin (Lipitor) 40 mg tabletIndicatio ns:Coronary artery disease involving white earth coronary artery of white earth heart without angina pectoris Take 1 tablet (40 mg) by mouth at bedtime. 90 tablet 3 5 12/10/19 26 Active Active Problems Problem Noted Date Diagnosed Date Chronic ischemic heart disease 12/09/2024 Overview (12/09/2024): Nov 16, 2011 Entered By: DONAL NGERON Comment: 5 stents placed Jun 2009 Chronic prostatitis 12/09/2024 Encounter for screening, unspecified 12/09/2024 Enlarged prostate 12/09/2024 Urinary retention 12/09/2024 Tinnitus 12/09/2024 Coronary artery disease invo lving white earth coronary artery of white earth heart without angina pectoris 12/09/2024 Elevated PSA 07/01/2024 BMI 33.0-33.9,adult 05/15/2024 Chronic systolic congestive heart failure 2023 Prediabetes 09/20/2023 Benign prostatic hyperplasia without urinary obs truction 03/14/2023 Bronchial asthma 03/14/2023 Bronchiectasis 03/14/2023 Chronic obstructive pulmonary disease 03/14/2023 Polyp of nasal sinus 03/14/2023 Post herpetic neuralgia 03/14/2023 Pure hypercholesterolemia 03/14/2023 Testicular hypofunction 03/14/2023 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 02/13/2023 Essential hypertension 02/13/2023 Former smoker 02/13/2023 Gastroesophageal reflux disease without esophagi tis 02/13/2023 Hyperlipidemia 02/13/2023 Ischemic cardiomyopathy 02/13/2023 Status post coronary artery stent placement 01/26 Family History Relation Name Status Comments Father Mother Social History Tobacco Use Types Packs/Day Years Used Date Smoking Tobacco: Former Cigarettes Smokeless Tobacco: Never Tobacco Cessation:Counseling Given: Not Answered Alcohol Use Standard Drinks/Week Comments Not Currently 0 (1 standard drink = 0.6 oz pur e alcohol) Sex and Gender Information Value Date Recorded Sex Assigned at Male 12/03/2024 10:12 AM EDT Legal Sex Male 10:58 AM EDT Gender Identity Male 12/03/2024 10:12 AM EDT Sexual Orientation Heterosexual or Straight 01/2025 10:12 AM EDT Last Filed Vital Signs Vital Sign Reading Time Taken Comments Blood Pressure 125/76 12/09/2024 9:17 AM EDT Pulse 78 12/09/2024 9:17 AM EDT Temperature - - Respiratory Rate - - Oxygen Saturation 97% 12/09/2024 9:17 AM EDT Inhaled Oxygen Concentration - - Weight 99.3 kg (219 lb) 12/09/2024 9:17 AM EDT Height 172.7 cm (5' 8 ) 12/09/2024 9:17 AM EDT Body Mass Index 33.3 12/09/2024 9:17 AM EDT Plan of Treatment Upcoming Encounters Date Type Department Care Team (Late st Contact Info) Description 03/16/2025 9:30 AM EDT Office Visit [facility] [address] [place] [address] Luba Ortega MD [address] [facility] [place] [address] Health Maintenance Due Date Last Done Comments CT Colonography 1953 Diabetes: Hemoglobin A1C 1955 FIT-DNA 1955 FIT 1955 FOBT 1955 Medicare Annual Wellness (AWV) 1955 Sigmoidoscopy 1953 Depression Screening 1965 Zoster Vaccines (1 of 2) 2003 12/21/2016 Fall Risk Screening 2018 COVID-19 Vaccine ( season) 2025 Influenza Vaccine (#1) 2025 9, 03/28/2019, 08/16/2018, Additional history exists Adult Tetanus 08/11/2027 08/10/2017, 2007 Colonoscopy 07/27/2029 07/28/2019 Colorectal Cancer Screening 07/27/2029 Pneumococcal Vaccine: 50+ Years Completed 08/16/2018, 05/28/2018, 09/30/2012, Additional history exists HIB Vaccines Aged Out No longer eligi ble based on patient's age to complete this topic HPV Vaccines Aged Out No longer eligi ble based on patient's age to complete this topic IPV Vaccines Aged Out No longer eligi ble based on patient's age to complete this topic Meningococcal B Vaccine Aged Out No l onger eligible based on patient's age to complete this topic Meningococcal Vaccine Aged Out No marai esther iesha eligible based on patient's age to complete this topic Rotavirus Vaccines Aged Out No longer eligible based on patient's age to complete this topic Insurance [facility] MEDICARE ADVANTAGE [facility] Care Teams Supervisor Fur Dressing Relationship Specialty Start Date End Date Torres Klein MD [address] [place] [address] PCP - General Family Medicine 12/03/24
--- OUTSIDE RECORDS SUMMARY | 2025-03-16 08:23 | XMS_ITS | Encounter Summary ---
Author Organization [facility] Address [address] [place] [address] Care Team Providers Care Technical Designer Name Role Phone Chun Hobbs MD Unavailable [phone] Chun Hobbs MD Primary Care Provider [phone] Tootie Jacobson RN Unavailable [phone] Rene Castro MD Unavailable [phone] Orquidea Carreon RN Unavailable [phone] Orquidea Shah RN Unavailable [phone] Evens Morgan DO Unavailable [phone] John Baptiste MD Unavailable [phone] Jessica Jenkins EXTRUSION SUPERVISOR Unavailable [phone] Unallocated, Noms Provider Primary Care Provi gonzales Torres Klein MD Primary Care Provider [phone] Encounter Details Date Type Department Care Team (Late st Contact Info) Description 02/18/2024 Orders Only [facility] [address] [place] [address] A, Unknown Practice [address] [place] [address] Social History Tobacco Use Types Packs/Day [...] documented as of this encounter Care Teams Technical Designer Relationship Specialty Start Date End Date Chun Hobbs MD [address] [place] [address] PCP - [employer] 05/28/22 01/28/25 Chun Hobbs MD [address] [place] [address] PCP - General Internal Medicine 10/03/22 10/06/24 Unallocated, Noms ProviderMD [address] [place] [address] PCP - General Family Medicine 10/07/24 10/16/24 Torres Klein MD [address] [place] [address] PCP - General Family Medicine 10/17/24 Tootie Jacobson, DOUG [address] [place] [address] Registered Nurse Internal Medicine 08/10/23 03/28/24 Rene Castro MD [address] [facility] [address] [place] [address] Referring Physician Cardiology 09/05/23 Orquidea Carreon RN [address] [place], [place] [address] Registered Nurse Family Medicine 03/28/24 06/03/24 Orquidea Shah RN [address] [place] [address] Registered Nurse Internal Medicine 06/03/24 10/07/24 Evens Morgan DO [address] [facility] [address] [address] [place] [address] Referring Physician Pulmonary Disease 09/24/24 John Baptiste MD [address] [facility] [place] [address] Referring Physician Urology 09/24/24 Jessica Jenkins NP [address] [place] [address] Nurse Practitioner Family Medicine 09/24/24 [facility] 09/24/24 documented as of this encounter
--- OUTSIDE RECORDS SUMMARY | 2025-03-16 08:24 | XMS_ITS | Encounter Summary ---
Author Organization [facility] Address [address] [place] [address] Care Team Providers Care Pig Caster Name Role Phone Chun Hobbs MD Unavailable [phone] Chun Hobbs MD Primary Care Provider [phone] Rene Castro MD Unavailable [phone] Orquidea Shah RN Unavailable [phone] Evens Morgan DO Unavailable [phone] John Baptiste MD Unavailable [phone] Jessica Jenkins MANUFACTURER Unavailable [phone] Unallocated, Noms Provider Primary Care Provi gonzales Torres Klein MD Primary Care Provider [phone] Reason for Visit * Reason Onset Date Comments Med Refill 08/02/2024 Encounter Details Date Type Department Care Team (Late st Contact Info) Description 08/02/2024 Refill [facility] [place] [facility] [address] [facility] [address] [place] [address] Chun Hobbs MD [address] [facility] [address] [place] [address] Social History Tobacco Use Types [...] documented as of this encounter Care Teams Pig Caster Relationship Specialty Start Date End Date Chun Hobbs MD [address] [place] [address] PCP - Hum[employer] 05/28/22 01/28/25 Chun Hobbs MD [address] [place] [address] PCP - General Internal Medicine 10/03/22 10/06/24 Unallocated, Noms Boby, [address] [place] [address] PCP - General Family Medicine 10/07/24 10/16/24 Torres Klein MD [address] [facility] [place] [address] PCP - General Family Medicine 10/17/24 Rene Castro MD [address] [place] [address] Referring Physician Cardiology 09/05/23 Orquidea Shah DOUG [address] [place] [address] Registered Nurse Internal Medicine 06/03/24 10/07/24 Evens Morgan DO [address] [place] [address] Referring Physician Pulmonary Disease 09/24/24 John Baptiste MD [address] [place] [address] Referring Physician Urology 09/24/24 Jessica Jenkins NP [address] [place] [address] Nurse Practitioner Family Medicine 09/24/24 [facility] 09/24/24 documented as of this encounter
--- OUTSIDE RECORDS SUMMARY | 2025-03-16 08:24 | XMS_ITS | Encounter Summary ---
Author Organization [facility] Address [address] [place] [address] Phone Care Team Providers Care Acute Dialysis Registered Nurse Name Role Phone Chun Hobbs MD Primary Care Provider [phone] Torres Klein MD Primary Care Provider [phone] Encounter Details Date Type Department Care Team (Late st Contact Info) Description 10/16/2024 Scanned Document [facility] [address] [place] [id number] Scanning, Generic Provider Social History Tobacco Use [...] documented as of this encounter Care Teams Acute Dialysis Registered Nurse Relationship Specialty Start Date End Date Chun Hobbs MD [address] [place] [address] PCP - General 02/16/21 10/23/24 Torres Klein MD [address] [facility] [place] [address] PCP - General Family Medicine 10/24/24 documented as of this encounter
--- OUTSIDE RECORDS SUMMARY | 2025-03-16 08:24 | XMS_ITS | Encounter Summary ---
Author Organization [facility] Address [address] [place] [address] Care Team Providers Care Line Builder Name Role Phone Chun Hobbs MD Unavailable [phone] Chun Hobbs MD Primary Care Provider [phone] Tootie Jacobson RN Unavailable [phone] Rene Castro MD Unavailable [phone] Orquidea Carreon RN Unavailable [phone] Orquidea Shah RN Unavailable [phone] Evens Morgan DO Unavailable [phone] John Baptiste MD Unavailable [phone] Jessica Jenkins VICE PRESIDENT MARKETING & DEVELOPMENT Unavailable [phone] Unallocated, Noms Provider Primary Care Provi gonzales Torres Klein MD Primary Care Provider [phone] Encounter Details Date Type Department Care Team (Late st Contact Info) Description 02/04/2024 Orders Only [facility] [address] [place] [address] A, Unknown Practice [address] [place] [address] Social History Tobacco Use Types Packs/Day [...] documented as of this encounter Care Teams Line Builder Relationship Specialty Start Date End Date Chun Hobbs MD [address] [place] [address] PCP - Hum[employer] 05/28/22 01/28/25 Chun Hobbs MD [address] [place] [address] PCP - General Internal Medicine 10/03/22 10/06/24 Unallocated, Noms ProviderMD [address] [place] [address] PCP - General Family Medicine 10/07/24 10/16/24 Torres Klein MD [address] [place] [address] PCP - General Family Medicine 10/17/24 Tootie Jacobson, DOUG [address] [place] [address] Registered Nurse Internal Medicine 08/10/23 03/28/24 Rene Castro MD [address] [facility] [address] [place] [address] Referring Physician Cardiology 09/05/23 Orquidea Carreon RN [address] [place], [place] [address] Registered Nurse Family Medicine 03/28/24 06/03/24 Orquidea Shah RN [address] [place] [address] Registered Nurse Internal Medicine 06/03/24 10/07/24 Evens Morgan DO [address] [facility] [address] [place] [address] Referring Physician Pulmonary Disease 09/24/24 John Baptiste MD [address] [facility] [address] Referring Physician Urology 09/24/24 Jessica Jenkins NP [address] [place] [address] Nurse Practitioner Family Medicine 09/24/24 [facility] 09/24/24 documented as of this encounter
--- OUTSIDE RECORDS SUMMARY | 2025-03-16 08:25 | XMS_ITS | Encounter Summary ---
Author Organization [facility] Address [address] [place] [address] Phone Care Team Providers Care Insurance Broker Name Role Phone Torres Klein MD Primary Care Provider [phone] Encounter Details Date Type Department Care Team (Late st Contact Info) Description 11/21/2024 Scanned Document [facility] [address] [place] [address] Scanning, Generic Provider Social History Tobacco Use [...] on file Sexual Orientation Not on file COVID-19 Exposure Response Date Recorded In the last 10 days, have yo u been in contact with someone who was confirmed or suspected to have Coronavirus/COVID-19? No / Unsure 10/24/2024 9:35 AM EDT documented as of this encounter Plan of Treatment Not on file documented as of this encounter Procedures Procedure Name Priority Date/Time Associated Diagnosis Comments ECHOCARDIOGRAM 11/21/2024 documented in this encounter Results * Echocardiogram (11/21/2024) Narrative 11/21/2024 Ordered by an unspecified provider. us Generic Provider Scanning CV ECHO PROCEDURES Fin al Result documented in this encounter Visit Diagnoses Not on filedocumented in this encounter Additional Health Concerns Assessment Noted Time A fall risk assessment has been complete d for the patient 10/24/2024 9:39 AM EDT documented as of this encounter Care Teams Insurance Broker Relationship Specialty Start Date End Date Torres Klein MD [address] [place] [address] PCP - General Family Medicine 10/24/24 documented as of this encounter
--- OUTSIDE RECORDS SUMMARY | 2025-03-16 08:25 | XMS_ITS | Clinical Summary ---
Author Organization [facility] Address [address] [facility], [address] [place] [address] Care Team Providers Care Farmworker Fruit Name Role Phone Chun Hobbs MD Primary Care Provider [phone] Allergies Active Allergy Reactions Criticality Noted Date [...] (Cologuard): Average risk 1998 Sigmoidoscopy/CT colonography 1998 Shingles vaccine (2 of 3) 02/15/2017 12/21/2016 AAA screen 2018 Annual Wellness Visit (Medicare Advantage) 05/28/2024 Flu vaccine (#1) 12/26/2024 04/16/2019, 05/2018, 08/16/2018, Additional history exists COVID-19 Vaccine ( - season) 2025 DTaP/Tdap/Td vaccine (2 - Td or Tdap) 08/11/2027 08/10/2017, 2007 Respiratory Syncytial Virus (RSV) or age 60 yrs+ (1 - 1-dose 75+ series) 01/02/2028 Pneumococcal 50+ years Vaccine Completed 08/16/2018, 05/28/2018, [...] patient's age to complete this topic Insurance [facility] MEDICARE MEDICARE SUPP Care Teams Farmworker Fruit Relationship Specialty Start Date End Date Chun Hobbs MD [address] [place] [address] PCP - General 10/15/23
--- OUTSIDE RECORDS SUMMARY | 2025-03-16 08:25 | XMS_ITS | Encounter Summary ---
Author Organization [facility] Address [address] [place] [address] Care Team Providers Care Climbing Guide Name Role Phone Chun Hobbs MD Unavailable [phone] Chun Hobbs MD Primary Care Provider [phone] Tootie Jacobson RN Unavailable [phone] Tootie Jacobson RN Unavailable [phone] Aaron Castro MD Unavailable Orquidea Carreon RN Unavailable [phone] Orquidea Shah RN Unavailable [phone] Evens Morgan DO Unavailable John Baptiste MD Unavailable [phone] Jessica Jenkins MILIEU THERAPIST Unavailable [phone] Unallocated, Noms Provider Primary Care Provi gonzales Torres Klein MD Primary Care Provider [phone] Encounter Details Date Type Department Care Team [...] Procedure Name Priority Date/Time Associated Diagnosis Comments [facility] CARDIAC STRESS/REST INJECTION 01/03/2023 10:57 AM EDT documented in this encounter Results * [facility] CARDIAC STRESS/REST INJECTION (01/03/2023 10:57 AM EDT) Anatomical Region Laterality Modality Other 01/03/2023 10:5 7 AM EDT Narrative 01/08/2023 4:43 PM EDT Patient Name: DEMARCUS CALDERON STUDY: MYOCARDIAL PERFUSION STRESS TEST WITH LEXISCAN Performing facility: [facility], [address] [place] [address], [address], [place] [id number] [facility] Provider: Aaron Castro MD, FACC PCP: Dr. Hunter Hobbs Supervising provider: Danna Davis DO, [facility] INDICATION: CAD; HTN Hyperlipidemia Ischemic cardiomyopathy HISTORY: Gender: M; Age: 68 y/o ; Height: 172.72 cm; Weight: 773.5115205 kg. CAD; High Cholesterol; HTN; Quit smoking 38 years ago. Cardiac catheterization on 2009. PTCA on 2009. COMPARISON: Previous nuclear testing completed at [facility]. ACCESSION NUMBER(S): [id number]; [id number]; [id number] ORDERING CLINICIAN: AARON CASTRO TECHNIQUE: TWO DAY [...] PERFUSION STRESS TEST WITH LEXISCAN Performing facility: [facility], [address] [place] [address], [address], [address] Provider: Aarno Castro MD, [facility] PCP: Dr. Hunter Hobbs Supervising provider: Danna Davis DO, [facility] INDICATION: CAD; HTN Hyperlipidemia Ischemic cardiomyopathy HISTORY: Gender: M; Age: 68 y/o ; Height: 172.72 cm; Weight: 135.0893526 kg. CAD; High Cholesterol; HTN; Quit smoking 38 years ago. Cardiac catheterization on 2009. PTCA on 2009. COMPARISON: Previous nuclear testing completed at [facility]. ACCESSION NUMBER(S): [id number]; [id number]; [id number] ORDERING CLINICIAN: AARON CASTRO TECHNIQUE: TWO DAY [...] on filedocumented in this encounter Care Teams Climbing Guide Relationship Specialty Start Date End Date Chun Hobbs MD [address] [place] [address] PCP - Hum[employer] 05/28/22 01/28/25 Chun Hobbs MD [address] [place] [address] PCP - General Internal Medicine 10/03/22 10/06/24 Unallocated, Noms Provider, [place] [address] PCP - General Family Medicine 10/07/24 10/16/24 Torres Klein MD [address] [facility] [place] [address] PCP - General Family Medicine 10/17/24 Tootie Jacobson, DOUG [address] [place] [facility] [place] [address] Registered Nurse Internal Medicine 07/03/23 07/12/23 Tootie Jacobson RN [address] [place] [address] Registered Nurse Internal Medicine 08/10/23 03/28/24 Aaron Castro MD [address] [facility] [address] [place] [address] Referring Physician Cardiology 09/05/23 Orquidea Carreon, DOUG [address] [facility] [address] Registered Nurse Family Medicine 03/28/24 06/03/24 Orquidea Shah, DOUG [address] [facility] [address] [place] [address] Registered Nurse Internal Medicine 06/03/24 10/07/24 Evens Morgan DO [address] [facility] [address] [place] [address] Referring Physician Pulmonary Disease 09/24/24 John Baptiste MD [address] [facility] [address] Referring Physician Urology 09/24/24 Jessica Jenkins NP [address] [place] [id number] Nurse Practitioner Family Medicine 09/24/24 [facility] Opt[facility] 09/24/24 documented as of this encounter
--- OUTSIDE RECORDS SUMMARY | 2025-03-16 08:25 | XMS_ITS | Encounter Summary ---
Author Organization [facility] Address [address] [place] [address] Phone Care Team Providers Care Thread Dresser Name Role Phone Chun Hobbs MD Primary Care Provider [phone] Torres Klein MD Primary Care Provider [phone] Encounter Details Date Type Department Care Team (Late st Contact Info) Description 10/17/2024 Scanned Document [facility] [address] [place] [id number] Scanning, Generic Provider Social History Tobacco Use [...] Date/Time Associated Diagnosis Comments OUTSIDE IMAGING SCAN 10/17/2024 documented in this encounter Results * OUTSIDE IMAGING SCAN (10/17/2024) Anatomical Region Laterality Modality Other Narrative 10/17/2024 Ordered by an unspecified provider. us Generic Provider Scanning OUTSIDE SCAN Final Result documented in this encounter Visit Diagnoses Not on filedocumented in this encounter Additional Health Concerns Assessment Noted Time A fall risk assessment has been complete d for the patient 05/15/2024 8:53 AM EST documented as of this encounter Care Teams Thread Dresser Relationship Specialty Start Date End Date Chun Hobbs MD [address] [place] [address] PCP - General 02/16/21 10/23/24 Torres Klein MD [address] [place] [address] PCP - General Family Medicine 10/24/24 documented as of this encounter
--- OUTSIDE RECORDS SUMMARY | 2025-03-16 08:25 | XMS_ITS | Encounter Summary ---
Author Organization [facility] Address [address] [place] [address] Care Team Providers Care Resident Programs Assistant Name Role Phone Chun Hobbs MD Unavailable [phone] Chun Hobbs MD Primary Care Provider [phone] Rene Castro MD Unavailable [phone] Orquidea Shah RN Unavailable [phone] Evens Morgan DO Unavailable [phone] John Baptiste MD Unavailable [phone] Jessica Jenkins SUMMER SESSIONS DIRECTOR Unavailable [phone] Unallocated, Noms Provider Primary Care Provi gonzales Torres Klein MD Primary Care Provider [phone] Encounter Details Date Type Department Care Team (Late st Contact Info) Description 09/24/2024 Orders Only [facility] [address] [place] [address] Unallocated, Noms Provider, [address] [place], [place] [id number] Social History Tobacco Use Types Packs/Day Years [...] 4:11 PM EDT) us Noms Provider Unallocated LAB BLOOD ORDERABLE S Final Result documented in this encounter Visit Diagnoses Not on filedocumented in this encounter Additional Health Concerns Assessment Noted Time PHQ-9 Depression Total Score: 1 09/20/19 24 1:00 PM EDT A fall risk assessment has been complete d for the patient 08/10/2023 1:18 PM EDT documented as of this encounter Care Teams Resident Programs Assistant Relationship Specialty Start Date End Date Chun Hobbs MD [address] [place] [address] PCP - [employer] 05/28/22 01/28/25 Chun Hobbs MD [address] [place] [address] PCP - General Internal Medicine 10/03/22 10/06/24 Unallocated, Noms Provider, [address] [place] [address] PCP - General Family Medicine 10/07/24 10/16/24 Torres Klein MD [address] [place] [address] PCP - General Family Medicine 10/17/24 Rene Castro MD [address] [facility] [address] [place] [address] Referring Physician Cardiology 09/05/23 Orquidea Shah, DOUG [address] [place] [address] Registered Nurse Internal Medicine 06/03/24 10/07/24 Evens Morgan DO [address] [place] [address] Referring Physician Pulmonary Disease 09/24/24 John Baptiste MD [address] [place] [address] Referring Physician Urology 09/24/24 Jessica Jenkins NP [address] [place] [address] Nurse Practitioner Family Medicine 09/24/24 [facility] Optometry 09/24/24 documented as of this encounter
--- OUTSIDE RECORDS SUMMARY | 2025-03-16 08:25 | XMS_ITS | Clinical Summary ---
Author Organization [facility] Address [address] [place] [address] Care Team Providers Care Nuclear Plant Equipment Operator Name Role Phone Rene Castro MD Unavailable [phone] Evens Morgan DO Unavailable [phone] John Baptiste MD Unavailable [phone] Jessica Jenkins TECHNICAL SALES SPECIALIST Unavailable [phone] Torres Klein MD Primary Care Provider Allergies Active Allergy Reactions Criticality Noted Date [...] morning. Active cholecalciferol (Vitamin D-3) 50 MCG (1999 UT) [...] each day. Active albuterol HFA 90 mcg/act inhalerIndicatio ns:Chronic obstructive pulmonary disease, unspecified COPD type (HCC) Inhale 2 puffs every 6 (six) hours if needed for wheezing or shortness of breath 18 g 3 4 Active albuterol (2.5 MG/3ML) 0.083% nebulizer solutionIndicati ons:Chronic obstructive pulmonary disease, unspecified COPD type (HCC) Take 3 mL (2.5 mg) by nebulization every 8 (eight) hours 810 mL 3 4 Active fluticasone (Flonase) 50 MCG/ACT nasal spray Administer 2 sprays into each nostril Daily 4 Active sildenafil (Viagra) 100 MG tabletIndication s:Benign prostatic hyperplasia without urinary obstruction Take 1 tablet (100 mg) by mouth if needed for erectile dysfunction 10 tablet 2 4 Active rosuvastatin (Crestor) 40 MG tablet Take 40 mg by mouth in the morning. 4 Active tamsulosin (Flomax) 0.4 MG 24 hr capsuleIndicatio ns:Benign prostatic hyperplasia without urinary obstruction Take 1 capsule (0.4 mg) by mouth Daily 90 capsule 3 4 Active omeprazole (PriLOSEC) [address] capsuleIndicatio ns:Gastroesophag eal reflux disease without esophagitis Take 1 capsule (20 mg) by mouth Daily 90 capsule 3 4 Active carvedilol (Coreg) 6.25 MG tabletIndication s:Essential hypertension Take 1 tablet (6.25 mg) by mouth in the morning and 1 tablet (6.25 mg) in the evening. Take with meals. 180 tablet 3 4 Active hydrocortisone 2.5 % creamIndications :Erythema intertrigo Apply thin layer to affected areas on groin up once or twice daily prn itching. Hold if not itchy. 28 g 5 Active Fluticasone-Umec lidin-Vilant (Trelegy Ellipta) 100-62.5-25 MCG/ACT aerosol powderIndication s:Chronic obstructive pulmonary disease, unspecified COPD type (HCC) Inhale 1 puff Daily 1 each 11 Active furosemide (Lasix) 40 MG tablet Take 40 mg by mouth Daily as needed Active Active Problems Problem Noted Date Diagnosed [...] tis 02/13/2023 Coronary artery disease invo lving [place] coronary artery of [place] heart without angina pectoris 02/13/2023 Immunizations Immunization Administration Dates Next Due Influenza, [...] Start Date Job End Date retired- [employer] (21 yrs), Not on file Not on [...] 09/24/2024 1:29 PM EDT Plan of Treatment Not on file Insurance [employer] Care Teams Nuclear Plant Equipment Operator Relationship Specialty Start Date End Date Torres Klein MD [address] [facility] [place] [address] PCP - General Family Medicine 10/17/24 Rene Castro MD [address] [facility] [address] [place] [address] Referring Physician Cardiology 09/05/23 Evens Morgan DO [address] [facility] [address] [place] [address] Referring Physician Pulmonary Disease 09/24/24 John Baptiste MD [address] [facility] [place] [address] Referring Physician Urology 09/24/24 Jessica Jenkins TECHNICAL SALES SPECIALIST [address] [place] [address] Nurse Practitioner Family Medicine 09/24/24 [facility] 09/24/24
--- OUTSIDE RECORDS SUMMARY | 2025-03-16 08:25 | XMS_ITS | Encounter Summary ---
Author Organization [facility] Address [address] [place] [address] Phone Care Team Providers Care Chemical Treatment Operator Name Role Phone Chun Hobbs MD Primary Care Provider [phone] Torres Klein MD Primary Care Provider [phone] Encounter Details Date Type Department Care Team (Late st Contact Info) Description 08/22/2023 Scanned Document [facility] [address] [place] [id number] Scanning, Generic Provider Social History Tobacco Use [...] documented as of this encounter Care Teams Chemical Treatment Operator Relationship Specialty Start Date End Date Chun Hobbs MD [address] [place] [address] PCP - General 02/16/21 10/23/24 Torres Klein MD [address] [place] [address] PCP - General Family Medicine 10/24/24 documented as of this encounter
--- OUTSIDE RECORDS SUMMARY | 2025-03-16 08:26 | XMS_ITS | Clinical Summary ---
Author Organization [facility] Address [address] [place] [address] Phone Care Team Providers Care Magnetic Prospecting Supervisor Name Role Phone Torres Klein MD Primary Care Provider [phone] Allergies Active Allergy Reactions Criticality Noted Date Comments Codeine Unknown 02/13/2023 Medications omega-3 fatty acids-fish oil (One-Per-Day [place]-3) 684-1,200 mg capsule Take as directed Active [...] (50 mcg) by mouth once daily. Active zinc gluconate 30 mg tablet Take 1 tablet (30 mg) by mouth once daily. Active multivitamin (MULTIPLE VITAMINS ORAL) 1 tablet once daily. 7 Active nitroglycerin (Nitrostat) 0.4 mg SL tabletIndications: Coronary artery disease involving [place] coronary artery of [place] heart without angina pectoris Place 1 tablet (0.4 mg) under the tongue every 5 minutes if needed for chest pain. May repeat dose every 5 minutes for up to 3 doses total. 25 tablet 11 4 Active benzonatate (Tessalon) 200 mg capsule Take 1 capsule (200 mg) by mouth 3 times a day as needed for cough. Do not crush or chew. Active fluconazole (Diflucan) 100 mg tablet Take 1 tablet (100 mg) by mouth once daily. Active levoFLOXacin (Levaquin) 750 mg tablet Take 1 tablet (750 mg) by mouth once daily. Active nystatin (Mycostatin) 100,000 unit/mL suspension 5 mL (500,000 Units) 4 times a day. Active cetirizine (ZyrTEC) 10 mg chewable tablet Chew 1 tablet (10 mg) once daily. Active fluticasone propion-salmeteroL (Advair HFA) 230-21 mcg/actuation inhaler Inhale 2 puffs 2 times a day. Rinse mouth with water after use to reduce aftertaste and incidence of candidiasis. Do not swallow. Active furosemide (Lasix) 40 mg tablet Take 1 tablet (40 mg) by mouth once daily as needed. Active montelukast (Singulair) 10 mg tablet Take 1 tablet (10 mg) by mouth once daily at bedtime. Active predniSONE (Deltasone) 10 mg tablet Take 1 tablet (10 mg) by mouth once daily. Active carvedilol (Coreg) 6.25 mg tabletIndications: Ischemic cardiomyopathy Take 0.5 tablets (3.125 mg) by mouth 2 times daily (morning and late afternoon). 90 tablet 3 5 026 Active aspirin 81 mg EC tabletIndications: Ischemic cardiomyopathy Take 1 tablet (81 mg) by mouth once daily. 30 tablet 11 5 026 Active spironolactone (Aldactone) 25 mg tabletIndications: Ischemic cardiomyopathy Take 0.5 tablets (12.5 mg) by mouth once daily. 15 tablet 11 5 026 Active valsartan (Diovan) 40 mg tabletIndications: Essential hypertension Take 1 tablet (40 mg) by mouth 2 times a day. 180 tablet 3 5 026 Active empagliflozin (Jardiance) 10 mg tabletIndications: Ischemic cardiomyopathy Take 1 tablet (10 mg) by mouth once daily. 90 tablet 5 Active Active Problems Problem Noted Date Diagnosed Date BMI 33.0-33.9,adult 05/15/2024 CAD (coronary artery disease) 02/13/2023 Esophageal reflux 02/13/2023 Essential hypertension 02/13/2023 Hyperlipidemia 02/13/2023 Ischemic cardiomyopathy 02/13/2023 Status post coronary artery stent placement 01/26 Former smoker 02/13/2023 Class 2 obesity in adult 02/13/2023 Immunizations Immunization Administration Dates Next Due Flu vaccine (IIV4), preserva tive free *Check age/dose* 08/16/2018,05/15/2017 Flu vaccine, trivalent, pres ervative free, age 6 months and greater (Fluarix/Fluzone/Flulaval) 08/16/2018,04/28/2016,03/05/2015,03/10,03/28/2010 Influenza, Unspecified 03/28/2019,2012,05/06/2012,03/03,05/28/2010,03/31/2010 Influenza, trivalent, adjuvanted 04/16/2019 Pneumococcal conjugate vacci ne, 13-valent (PREVNAR 13) 08/16/2018 Pneumococcal polysaccharide vaccine, 23-valent, age 2 years and older (PNEUMOVAX 23) 05/28/2018,09/30/2012 Pneumococcal, Unspecified 09/30/2012 Td (adult), unspecified 2007 Tdap vaccine, age 7 year and older (BOOSTRIX, ADACEL) 08/10/2017 Tetanus Toxoid, Unspecified 2007 Zoster, live 12/21/2016 Family History Medical History Relation Name Comments AAA Father arteriosclerotic cardiovascular disease Father Relation Name Status Comments Father Social History Tobacco Use Types Packs/Day Years Used Date Smoking Tobacco: Former Cigarettes Q uit: 1993 Smokeless Tobacco: Never Tobacco Cessation:Counseling Given: Not [...] Sign Reading Time Taken Comments Blood Pressure 102/68 10/24/2024 9:46 AM EDT Pulse 84 10/24/2024 9:46 AM EDT Temperature - - Respiratory Rate - - Oxygen Saturation - - Inhaled Oxygen Concentration - - Weight 101 kg (222 lb 6.4 oz) 10/24/2024 9:46 AM EDT Height 172.7 cm (5' 8 ) 10/24/2024 9:46 AM EDT Body Mass Index 33.82 10/24/2024 9:46 AM EDT Plan of Treatment Health Maintenance Due Date Last Done Comments CT Colonography 1953 Creatinine Level 1953 FIT-DNA (Cologuard) 1953 FIT 1953 Potassium Level 1953 Sigmoidoscopy 1953 Diabetes Screening 1971 Hepatitis C Screening 1971 RSV High Risk: (Elderly (60+) or Population) (1 - Risk 60-74 years 1-dose series) 2013 MMR Vaccines (1 of 1 - Standard series) 01/18/2017 Zoster Vaccines (2 of 3) 02/15/2017 12/21/2016 Abdominal Aortic Aneurysm (AAA) Screening 2018 Medicare Annual Wellness Visit (AWV) 08/02/2022 08/01/2021, 08/02/2020, 07/07/2019 Influenza Vaccine (#1) 2024 9, 03/28/2019, 08/16/2018, Additional history exists COVID-19 Vaccine (1 - season) 2025 Echocardiogram 11/21/2025 11/21/2024, 10/27, 03/20/2023 DTaP/Tdap/Td Vaccines (2 - Td or Tdap) [...] Priority Date/Time Associated Diagnosis Comments ECHOCARDIOGRAM 11/21/2024 7:56 AM EDT from Last 3 Months or Most Recently Relevant to Health Maintenance Results * Echocardiogram (11/21/2024 7:56 AM EDT) 11/21/2024 7:56 AM EDT Narrative [facility] - 11/21/2024 3:36 PM EDT [facility] [address] [place], [place] [id number] Echocardiogram Signed Patient: Kwadwo Panchal MR#: [id number] : 1955 Acct:[id number] Age/Sex: 69 / M ADM Date: 11/21/24 Loc: Room: Type: [facility] Attending Dr: Penelope Richmond APRN Ordering Provider: Penelope Richmond APRN Date of Service: 11/21/24/ ECH/ECH echo transthoracic: ISCHEMIC CARDIOMYOPATHY Copies to: WILLIAN Garcia MD BSA: 2.1 m2 BP: 127/80 mmHg HR: 74 Reason For Study: ISCHEMIC CARDIOMYOPATHY History: HTN, HLD, Former Smoker, [place], Stents, Emphysema, COVID Interpretation Summary Ejection Fraction [...] V1 max: 107.7 cm/sec (0.7-1.7m/s)MV E max remi: 74.7 cm/sec(0.8-1.3m/s) MV A max remi: 103.3 cm/sec(0.0-0.0m/s) MV E/A: 0.72 (<1.5) MMode/2D Measurements Calculations RVDd: 2.7 cm FS: 13.0 % MV Diam: 0.38 cm Ao root area: TAPSE: 2.0 cm EDV(Teich): 7.6 cm2 RV S Remi: 16.6 cm/sec 181.5 ml ESV(Teich): 131.9 ml [...] max: E/E' lat: 10.2 MV P1/2t max remi: 0.26 sec 112.5 cm/sec E/E' med: 12.3 88.2 cm/sec MV max P.0 mmHg MV P1/2t: 80.6 msec MV V2 mean: MVA(P1/2t): 2.7 cm2 72.9 cm/sec MV dec slope: MV mean P.4 mmHg MV V2 VTI: 30.4 cm 320.8 cm/sec2 MV area (1 diam): 0.11 cm2 MVA(VTI): 2.8 cm2 MV Flow area(1diam): 0.11 cm2 __ Ao V2 max: AI max remi: LV V1 max PG: MR max remi: 145.2 cm/sec 293.2 cm/sec 4.6 mmHg 482.5 [...] diam): TV max P.0 mmHg TR max remi: RF(MV,Ao)(1 diam): - 3.4 ml 298.6 cm/sec 67.0 SI(MV 1 diam): TR max PG: RF(MV,LVOT)(1diam): - 1.6 ml/m2 35.7 mmHg 24.0 RAP systole: 5.0 mmHg Transcribed By: ARMANDO Performed At: 11/21/24 1944 Signed By: Alex Gaston MD 11/21/24 7818 us Penelope Richmond EXHAUSTER ENGINEER-RN BABY CV ECHO PROCEDURES Final Result [facility] [address] [place] [address], [place] from Last 3 Months or Most Recently Relevant to Health Maintenance Insurance [employer] Care Teams Magnetic Prospecting Supervisor Relationship Specialty Start Date End Date Hoy, Torres Ricardo, MD [address] [place] [address] PCP - General Family Medicine 10/24/24
--- OUTSIDE RECORDS SUMMARY | 2025-03-16 08:26 | XMS_ITS | Encounter Summary ---
Author Organization [facility] Address [address] [place] [address] Care Team Providers Care Gold Blower Name Role Phone Chun Hobbs MD Unavailable [phone] Chun Hobbs MD Primary Care Provider [phone] Tootie Jacobson RN Unavailable [phone] Tootie Jacobson RN Unavailable [phone] Rene Castro MD Unavailable [phone] Orquidea Carreon RN Unavailable [phone] Orquidea Shah RN Unavailable [phone] Evens Morgan DO Unavailable [phone] John Baptiste MD Unavailable [phone] Jessica Jenkins WATER PROOFER Unavailable [phone] Unallocated, Noms Provider Primary Care Provi gonzales Torres Klein MD Primary Care Provider [phone] Encounter Details Date Type Department Care Team (Late st Contact Info) Description 06/27/2023 Orders Only [facility] [address] [place] [address] A, Unknown Practice [address] [place] [id number] Social History Tobacco Use Types Packs/Day [...] on filedocumented in this encounter Care Teams Gold Blower Relationship Specialty Start Date End Date Chun Hobbs MD [address] [place] [address] PCP - [employer] 05/28/22 01/28/25 Chun Hobbs MD [address] [place] [address] PCP - General Internal Medicine 10/03/22 10/06/24 Unallocated, Esvin Landis MD [address] [place] [address] PCP - General Family Medicine 10/07/24 10/16/24 Torres Klein MD [address] [facility] [place] [address] PCP - General Family Medicine 10/17/24 Tootie Jacobson, DOUG [address] [place] [address] Registered Nurse Internal Medicine 07/03/23 07/12/23 Tootie Jacobson RN [address] [place] [address] Registered Nurse Internal Medicine 08/10/23 03/28/24 Rene Castro MD [address] [facility] [address] [place] [address] Referring Physician Cardiology 09/05/23 Orquidea Carreon RN [address] [place] [address] Registered Nurse Family Medicine 03/28/24 06/03/24 Orquidea Shah RN [address] [facility] [address] [place] [address] Registered Nurse Internal Medicine 06/03/24 10/07/24 Evens Morgan DO [address] [facility] [address] [place] [address] Referring Physician Pulmonary Disease 09/24/24 John Baptiste MD [address] [place] [address] Referring Physician Urology 09/24/24 Jessica Jenkins NP [address] [facility] [address] [place] [address] Nurse Practitioner Family Medicine 09/24/24 [facility] 09/24/24 documented as of this encounter
--- OUTSIDE RECORDS SUMMARY | 2025-03-16 08:26 | XMS_ITS | Encounter Summary ---
Author Organization [facility] Address [address] [place] [address] Care Team Providers Care Community Specialist Name Role Phone Chun Hobbs MD Unavailable [phone] Chun Hobbs MD Primary Care Provider [phone] Tootie Jacobson RN Unavailable [phone] Tootie Jacobson RN Unavailable [phone] Rene Castro MD Unavailable Orquidea Carreon RN Unavailable [phone] Orquidea Shah RN Unavailable [phone] Evens Morgan DO Unavailable [phone] John Baptiste MD Unavailable [phone] Jessica Jenkins FEATHERER Unavailable [phone] Unallocated, Esvin Landis MD Primary Care Provi gonzales Torres Klein MD Primary Care Provider [phone] Encounter Details Date Type Department Care Team (Late st Contact Info) Description 03/14/2023 Abstract [facility] [address] [place] [id number] Chun Hobbs MD [address] [place] [address] Social History Tobacco Use Types Packs/Day Years [...] Start Date Job End Date retired- [employer] (21 yr s), 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 Not on file Not on file documented as of this encounter Plan of Treatment Not on file documented as of this encounter Visit Diagnoses Not on filedocumented in this encounter Care Teams Community Specialist Relationship Specialty Start Date End Date Chun Hobbs MD [address] [facility] [address] [place] [address] PCP - [employer] 05/28/22 01/28/25 Chun Hobbs MD [address] [facility] [place] [address] PCP - General Internal Medicine 10/03/22 10/06/24 Unallocated, Noms Boby, [address] [place] [address] PCP - General Family Medicine 10/07/24 10/16/24 Torres Klein MD [address] [place] [address] PCP - General Family Medicine 10/17/24 Tootie Jacobson RN [address] [place] [address] Registered Nurse Internal Medicine 07/03/23 07/12/23 Tootie Jacobson RN [address] [place] [address] Registered Nurse Internal Medicine 08/10/23 03/28/24 Rene Castro MD [address] [facility] [address] [place] [address] Referring Physician Cardiology 09/05/23 Orquidea Carreon, DOUG [address] [facility] [place] [address] Registered Nurse Family Medicine 03/28/24 06/03/24 Orquidea Shah RN [address] [place] [address] Registered Nurse Internal Medicine 06/03/24 10/07/24 Evens Morgan DO [address] [place] [address] Referring Physician Pulmonary Disease 09/24/24 John Baptiste MD [address] [facility] [place] [address] Referring Physician Urology 09/24/24 Jessica Jenkins NP [address] [place] [address] Nurse Practitioner Family Medicine 09/24/24 [facility] Optometry 09/24/24 documented as of this encounter
--- OUTSIDE RECORDS SUMMARY | 2025-03-16 08:26 | XMS_ITS | Encounter Summary ---
Author Organization [facility] Address [address] [place] [address] Phone Care Team Providers Care Electric Operator Name Role Phone Chun Hobbs MD Primary Care Provider [phone] Torres Klein MD Primary Care Provider [phone] Encounter Details Date Type Department Care Team (Late st Contact Info) Description 07/29/2021 Orders Only [facility] [address] [place] [address] Conversion, Onbase Social History Tobacco Use Types Packs/Day Years Used Date Smoking Tobacco: Never Assessed Sex and Gender Information Value Date Recorded Sex Assigned at Not on file Legal Sex Male 10:57 PM EST Gender Identity Not on file Sexual Orientation Not on file documented as of this encounter Plan of Treatment Scheduled Orders Name Type Priority Associated Diagnoses Orde r Schedule OUTSIDE LAB SCAN Lab Ordered: 07/29/2021 OUTSIDE LAB SCAN Lab Ordered: 07/29/2021 documented as of this encounter Visit Diagnoses Not on filedocumented in this encounter Care Teams Electric Operator Relationship Specialty Start Date End Date Chun Hobbs MD [address] [place] [address] PCP - General 02/16/21 10/23/24 Torres Klein MD [address] [facility] [place] [address] PCP - General Family Medicine 10/24/24 documented as of this encounter
--- OUTSIDE RECORDS SUMMARY | 2025-03-16 08:26 | XMS_ITS | Encounter Summary ---
Author Organization [facility] Address [address] [place] [address] Care Team Providers Care Cutter Gas Name Role Phone Chun Hobbs MD Unavailable [phone] Chun Hobbs MD Primary Care Provider [phone] Tootie Jacobson RN Unavailable [phone] Tootie Jacobson RN Unavailable [phone] Rene Castro MD Unavailable [phone] Orquidea Carreon RN Unavailable [phone] Orquidea Shah RN Unavailable [phone] Evens Morgan DO Unavailable [phone] John Baptiste MD Unavailable [phone] Jessica Jenkins FLOORING MACHINE OPERATOR Unavailable [phone] Unallocated, Esvin Landis MD Primary Care Provi gonzales Torres Klein MD Primary Care Provider [phone] Encounter Details Date Type Department Care Team (Late st Contact Info) Description 03/14/2023 Abstract [facility] [place] [facility] [address] [place] [id number] Chun Hobbs MD [address] [place] [address] Social History Tobacco Use Types Packs/Day Years [...] Start Date Job End Date 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), 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 Not on file Not on file documented as of this encounter Plan of Treatment Not on file documented as of this encounter Visit Diagnoses Not on filedocumented in this encounter Care Teams Cutter Gas Relationship Specialty Start Date End Date Chun Hobbs MD [address] [facility] [address] [place] [address] PCP - [employer] 05/28/22 01/28/25 Chun Hbobs MD [address] [facility] [place] [address] PCP - General Internal Medicine 10/03/22 10/06/24 Unallocated, [facility] Boby, [address] [place] [address] PCP - General Family Medicine 10/07/24 10/16/24 Torres Klein MD [address] [place] [address] PCP - General Family Medicine 10/17/24 Tootie Jacobson RN [address] [place] [address] Registered Nurse Internal Medicine 07/03/23 07/12/23 Tootie Jacobson RN [address] [place] [address] Registered Nurse Internal Medicine 08/10/23 03/28/24 Rene Castro MD [address] [facility] [address] [place] [address] Referring Physician Cardiology 09/05/23 Orquidea Carreon, D[address] [place] [address] Registered Nurse Family Medicine 03/28/24 06/03/24 Orquidea Shah RN [address] [place] [address] Registered Nurse Internal Medicine 06/03/24 10/07/24 Evens Morgan DO [address] [place] [address] Referring Physician Pulmonary Disease 09/24/24 John Baptiste MD [address] [facility] [place] [address] Referring Physician Urology 09/24/24 Jessica Jenkins NP [address] [place] [address] Nurse Practitioner Family Medicine 09/24/24 [facility] 09/24/24 documented as of this encounter
--- OUTSIDE RECORDS SUMMARY | 2025-03-16 08:26 | XMS_ITS | Encounter Summary ---
Author Organization [facility] Address [address] [facility] [place] [address] Care Team Providers Care Transport Tech Name Role Phone Chun Hobbs MD Primary Care Provider Encounter Details Date Type Department Care Team (Late st Contact Info) Description 06/28/2023 Orders Only [facility] [address] [facility] [address] [place] [address] Provider, MD Tanja Social History [...] on filedocumented in this encounter Care Teams Transport Tech Relationship Specialty Start Date End Date Chun Hobbs MD [address] [place] [address] PCP - General 10/15/23 documented as of this encounter
--- OUTSIDE RECORDS SUMMARY | 2025-03-16 08:26 | XMS_ITS | Encounter Summary ---
Author Organization [facility] Address [address] [place] [address] Care Team Providers Care Consulting Nurse Name Role Phone Chun Hobbs MD Unavailable [phone] Chun Hobbs MD Primary Care Provider [phone] Tootie Jacobson RN Unavailable [phone] Rene Castro MD Unavailable [phone] Orquidea Carreon RN Unavailable [phone] Orquidea Shah RN Unavailable [phone] Evens Morgan DO Unavailable [phone] John Baptiste MD Unavailable [phone] Jessica Jenkins MENDING CARRIER Unavailable [phone] Unallocated, N[facility] Provider Primary Care Provi gonzales Torres Klein MD Primary Care Provider [phone] Encounter Details Date Type Department Care Team (Late st Contact Info) Description 07/31/2023 Orders Only [facility] [address] [place] [address] A, Unknown Practice [address] [place] [address] Social History Tobacco Use Types Packs/Day [...] on filedocumented in this encounter Care Teams Consulting Nurse Relationship Specialty Start Date End Date Chun Hobbs MD [address] [place] [address] PCP - [employer] 05/28/22 01/28/25 Chun Hobbs MD [address] [place] [address] PCP - General Internal Medicine 10/03/22 10/06/24 Unallocated, Noms Provider, MD [address] [place] [address] PCP - General Family Medicine 10/07/24 10/16/24 Torres Klein MD [address] [facility] [place] [address] PCP - General Family Medicine 10/17/24 Tootie Jacobson RN [address] [place] [address] Registered Nurse Internal Medicine 08/10/23 03/28/24 Rene Castro MD [address] [facility] [address] [place] [address] Referring Physician Cardiology 09/05/23 Orquidea Carreon, DOUG [address] [place] [address] Registered Nurse Family Medicine 03/28/24 06/03/24 Orquidea Shah, DOUG [address] [place] [address] Registered Nurse Internal Medicine 06/03/24 10/07/24 Evens Morgan DO [address] [place] [address] Referring Physician Pulmonary Disease 09/24/24 John Baptiste MD [address] [facility] [place] [address] Referring Physician Urology 09/24/24 Jessica Jenkins NP [address] [place] [address] Nurse Practitioner Family Medicine 09/24/24 [facility] 09/24/24 documented as of this encounter
--- OUTSIDE RECORDS SUMMARY | 2025-03-16 08:26 | XMS_ITS | Encounter Summary ---
Author Organization [facility] Address [address] [place] [address] Phone Care Team Providers Care Airframe And Powerplant Mechanic Name Role Phone Chun Hobbs MD Primary Care Provider [phone] Torres Klein MD Primary Care Provider [phone] Encounter Details Date Type Department Care Team (Late st Contact Info) Description 02/24/2022 Orders Only [facility] [address] [place] [address] Conversion, Onbase Social History Tobacco Use Types [...] on filedocumented in this encounter Care Teams Airframe And Powerplant Mechanic Relationship Specialty Start Date End Date Chun Hobbs MD [address] [place] [address] PCP - General 02/16/21 10/23/24 Torres Klein MD [address] [place] [address] PCP - General Family Medicine 10/24/24 documented as of this encounter
--- OUTSIDE RECORDS SUMMARY | 2025-03-16 08:26 | XMS_ITS | Encounter Summary ---
Author Organization [facility] Address [address] [place] [address] Care Team Providers Care Expanding Machine Operator Name Role Phone Chun Hobbs MD Unavailable [phone] Chun Hobbs MD Primary Care Provider [phone] Tootie Jacobson RN Unavailable [phone] Rene Castro MD Unavailable [phone] Orquidea Carreon RN Unavailable [phone] Orquidea Shah RN Unavailable [phone] Evens Morgan DO Unavailable [phone] oJhn Baptiste MD Unavailable [phone] Jessica Jenkins TRANSMISSION INSPECTOR Unavailable [phone] Unallocated, [facility] Provider Primary Care Provi gonzales Torres Klein MD Primary Care Provider [phone] Encounter Details Date Type Department Care Team (Late st Contact Info) Description 07/25/2023 Orders Only [facility] [address] [place] [address] A, Unknown Practice [address] [place] [address] Social History Tobacco Use Types Packs/Day [...] on filedocumented in this encounter Care Teams Expanding Machine Operator Relationship Specialty Start Date End Date Chun Hobbs MD [address] [facility] [address] [place] [address] PCP - [employer] 05/28/22 01/28/25 Chnu Hobbs MD [address] [facility] [address] [place] [address] PCP - General Internal Medicine 10/03/22 10/06/24 Unallocated, Esvin Landis MD [address] [place] [address] PCP - General Family Medicine 10/07/24 10/16/24 Torres Klein MD [address] [place] [address] PCP - General Family Medicine 10/17/24 Tootie Jacobson, DOUG [address] [place] [address] Registered Nurse Internal Medicine 08/10/23 03/28/24 Rene Castro MD [address] [facility] [address] [place] [address] Referring Physician Cardiology 09/05/23 Orquidea Carreon RN [address] [facility] [place] [address] Registered Nurse Family Medicine 03/28/24 06/03/24 Orquidea Shah RN [address] [place] [address] Registered Nurse Internal Medicine 06/03/24 10/07/24 Evens Morgan DO [address] [place] [address] Referring Physician Pulmonary Disease 09/24/24 John Baptiste MD [address] [facility] [place] [address] Referring Physician Urology 09/24/24 Jessica Jenkins NP [address] [place] [address] Nurse Practitioner Family Medicine 09/24/24 [facility] 09/24/24 documented as of this encounter
--- OUTSIDE RECORDS SUMMARY | 2025-03-16 08:26 | XMS_ITS | Encounter Summary ---
Author Organization [facility] Address [address] [place] [address] Care Team Providers Care Employee Development Manager Name Role Phone Chun Hobbs MD Unavailable [phone] Chun Hobbs MD Primary Care Provider [phone] Tootie Jacobson RN Unavailable [phone] Rene Castro MD Unavailable [phone] Orquidea Carreon RN Unavailable [phone] Orquidea Shah RN Unavailable [phone] Evens Morgan DO Unavailable [phone] John Baptiste MD Unavailable [phone] Jessica Jenkins COMMUNITY ASSOCIATE Unavailable [phone] Unallocated, [facility] Provider Primary Care Provi gonzales Torres Klein MD Primary Care Provider [phone] Encounter Details Date Type Department Care Team (Late st Contact Info) Description 07/23/2023 Orders Only [facility] [address] [place] [address] A, Unknown Practice [address] [place] [address] Social History Tobacco Use Types Packs/Day [...] on filedocumented in this encounter Care Teams Employee Development Manager Relationship Specialty Start Date End Date Chun Hobbs MD [address] [facility] [address] [place] [address] PCP - [employer] 05/28/22 01/28/25 Chun Hobbs MD [address] [facility] [address] [place] [address] PCP - General Internal Medicine 10/03/22 10/06/24 Unallocated, Esvin Landis MD [address] [place] [address] PCP - General Family Medicine 10/07/24 10/16/24 Torres Klein MD [address] [place] [address] PCP - General Family Medicine 10/17/24 Tootie Jacobson, DOUG [address] [place] [address] Registered Nurse Internal Medicine 08/10/23 03/28/24 Rene Castro MD [address] [facility] [address] [place] [address] Referring Physician Cardiology 09/05/23 Orquidea Carreon RN [address] [facility] [place] [address] Registered Nurse Family Medicine 03/28/24 06/03/24 Orquidea Shah RN [address] [place] [address] Registered Nurse Internal Medicine 06/03/24 10/07/24 Evens Morgan DO [address] [place] [address] Referring Physician Pulmonary Disease 09/24/24 John Baptiste MD [address] [place] [address] Referring Physician Urology 09/24/24 Jessica Jenkins NP [address] [place] [address] Nurse Practitioner Family Medicine 09/24/24 [facility] 09/24/24 documented as of this encounter
--- OUTSIDE RECORDS SUMMARY | 2025-03-16 08:26 | XMS_ITS | Encounter Summary ---
Author Organization [facility] Address [address] [place] [address] Phone Care Team Providers Care Gis Software Engineer Name Role Phone Chun Hobbs MD Primary Care Provider [phone] Torres Klein MD Primary Care Provider + [phone] Encounter Details Date Type Department Care Team (Late st Contact Info) Description 01/03/2023 Scanned Document [facility] [address] [place] [address] Conversion, Onbase Social History Tobacco Use Types [...] on filedocumented in this encounter Care Teams Gis Software Engineer Relationship Specialty Start Date End Date Chun Hobbs MD [address] [place] [phone] PCP - General 02/16/21 10/23/24 Torres Klein MD [address] [place] [address] PCP - General Family Medicine 10/24/24 documented as of this encounter
--- OUTSIDE RECORDS SUMMARY | 2025-03-16 08:33 | XMS_ITS | CCD ---
Author Organization [facility] Care Team Providers Care Information Systems Technician Name Role Phone Sera Flower Unavailable Unavailable Unavailable Unavailable Primary Care Provider Unavailabl e Unavailable Unavailable DEANDRA BENDER Attending Unavailable DEANDRA BENDER Referring Unavailable MAU RANDLE Attending Unavailable DEANDRA BENDER Attending Unavailable DEANDRA BENDER Attending Unavailable DEANDRA BENDER Referring Unavailable MD Sera Flower Primary Care Provider MD Sera Flower Other Provider MD Rene Cortez Attending Provider [phone] Dr. Sera Flower Primary Care Unavailab Rene Nobles Referring Unavailable Ching, Dr. Sera Frost Primary Care Unavailab Rene Nobles Attending Unavailable Dr. Sera Flower Primary Care Unavailab Rene Nobles Attending Unavailable Ching, Dr. Sera Frost Primary Care Unavailab Rene Nobles Attending Unavailable Sera Flower MD Primary Care Provider MD Sera Flower Primary Care Provider [phone] DO Jasper Martinez Emergency Provider Sera Flower MD Unavailable Sera Flower MD Primary Care Provider Indira CAMACHO, Tootie Unavailable Rene Cortez MD Unavailable Indira RN, Tootie Unavailable Sera Flower Primary Care Physician Unavailab moisés Carreon RN, Orquidea Unavailable [phone] [facility] DOUG, Orquidea Unavailable Unavailable Rene Cortez MD Unavailable [phone] Eddie SHELLEY, Evens P Unavailable [phone] Emile SHELLEY, John P Unavailable Gregory HOP STRAINER, Gurjit A Unavailable RISALITI, SALLY R Attending [...] Care Provider Ricardo Aguero DO Admit Provider Sekou CAMACHO, Orquidea Other Provider Unavailable Keila Davis DO Other Provider Rene Cortez MD Other Provider Tank Daley MD Other Provider Charito Rodriguez MD Other Provider Kannan Mendez MD Other Provider Kiya Richmond APRN Other Provider Katia Mckeon MD Other Provider Sha SHELLEY, Katie Finley Other Provider Mirian Huffman MD Other Provider Javan [facility], Joanne Jimenez Other Provider Vincenzo Caraballo DO Attending Provider Rk Pate MD Primary Care Provider Kiya Richmond APRN Attending Provider Rk Pate [...] Nausea And Vomiting, Other, Unknown (qualifier value) [facility] (7 sources) Codeine / guaiFENesin; Translations: [CODEINE-GUAIFEN ESIN] Drug Allergy 1 Other: See Comments [facility] (7 sources) guaiFENesin; Translations: [GUAIFENESIN] Drug Allergy 3 Other: See Comments [facility] (18 sources) guaiFENesin Drug Allergy 3 Other [facility] (1 source) Codeine Drug Allergy 4 [facility] Repository Medications Current Medications Medication Drug Class(es) Dates Sig (Normalized) Sig (Original) acetaminophen 325 mg / HYDROcodone bitartrate 5 mg oral tablet (1 source) Opioid Agonist Start: 07-29-2024 take 1 tablet by mouth every hour Hague 325 mg-5 mg oral tablet See Instructions, 1 tab(s), Refill(s) 0, Take 1 hour prior to your procedure, [facility], 172, cm, 06/23/24 15:02:00 EST, Height/Length Dosing, 111.5, kg, 06/23/24 15:02:00 EST, Weight Dosing Start Date: 07/29/24 Status: Ordered acetaminophen 325 mg / traMADol hydrochloride 37.5 mg oral tablet (1 source) Opioid Agonist Start: 07-29-2024 Ultracet 325 mg-37.5 mg Tab See Instructions, 20 tab(s), Refill(s) 0, take 1-2 every 6 hrs prn for pain - following procedure, [facility], 172, cm, 06/23/24 15:02:00 EST, Height/Length Dosing, 111.5, kg, 06/23/24 15:02:00 EST, Weight Dosing Start Date: 07/29/24 Status: Ordered [id number] 200 actuat albuterol 0.09 mg/actuat metered dose [...] days, # 14 tab(s), Refills(s) 0, Pharmacy: [facility], 172, cm, 06/23/24 15:02:00 EST, Height/Length Dosing, 111.5, kg, 06/23/24 15:02:00 EST, Weight Dosing Start Date: 07/29/24 Status: Ordered Start: 04-16-2024 End: 04-30-2024 take 1 tablet by mouth every twelve hours Cipro 500 mg Tab 500 mg = 1 tab(s), Oral, q12hr, X 14 day(s), # 28 tab(s), Refills(s) 0, Pharmacy: [facility], 172, cm, 04/16/24 9:51:00 [...] procedure, # 1 tab(s), Refills(s) 0, Pharmacy: [facility], 172, cm, 06/23/24 15:02:00 [...] take 1 puff(s) by inhalation once daily Glkuetypcpy-Pgfwskteq-Bnpfaq (Trelegy Ellipta) 100-62.5-25 MCG/ACT aerosol powder Indications: Chronic obstructive pulmonary disease, unspecified COPD type ([facility]/HCC) Inhale 1 puff Daily 1 each 11 08/04/2024 Active Start: 07-25-2023 take 1 puff(s) by inhalation once daily Yctaioemkhb-Fojtmqfik-Saukan (Trelegy Ellipta) 100-62.5-25 MCG/ACT aerosol powder Inhale [...] SL tablet Indications: 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 May repeat dose every 5 minutes for up to 3 doses total. 25 tablet 11 05/15/2024 Active Comment on above: Dissolve under the t ongue. omega-3 fatty acids-fish oil (One-Per-Day [place]-3) 684-1,200 mg capsule (4 sources) omega-3 fatty acids-fish oil (One-Per-Day [place]-3) 684-1,200 mg capsule Take as directed Active omega-3 fatty ac ids-fish oil (One-Per-Day [place]-3) 684-1,200 mg capsule Take as directed 0 [...] procedure, # 10 tab(s), Refills(s) 0, Pharmacy: [facility], 172, cm, 06/23/24 15:02:00 [...] mg tablet Indications: Coronary artery disease involving houlton coronary artery of houl[place] heart without angina pectoris , Mixed hyperlipidemia [...] day(s), # 60 cap(s), Refills(s) 11, Pharmacy: [facility], 172, cm, 04/16/24 9:51:00 [...] mg by inhalation every eight hours Ipratropium [place] 0.02 % solution Discontinued 0.5 MG INHALATION Q8H 75 April 26, 2018 1:00am July 28, 2019 7:55am Start: 04-26-2018 End: 07-28-2019 take 0.5 mg by inhalation every eight hours Ipratropium [place] Discontinued 0.5 MG INHALATION Q8H April 26, [...] Antifungal Start: 5 End: 5 nystatin (Mycostatin) [id number] UNIT/GM powder Indications: Erythema intertrigo Apply to the affected area on groin area, once daily, 30 day supply 60 g 07/17/2024 09/24/2024 Discontinued (Med list cleanup) nystatin (Mycost atin) 100,000 unit/mL suspension 5 mL (500,000 Units) 4 times a day. Active [place] 3 CAPS (2 sources) [place] 3 CAPS MRALEN E DIRECTED. Quantity: 0 Refills: 0 Ordered: [...] [Coronary atherosclerosis of unspecified type of vessel, houlton or graft] Onset: 01-03-2023 03-23-2023 Chronic Coronary [...] organism] 02-22-2024 Episodic Unclassified (3 sources) A [facility] screening has identified you as FRAIL or [...] Four Ways to Beat the Frailty Risk [email or web address] i-amnhca-eiyv-ways-to- ryjl-vmp-zat ilty-risk 10-18-2024 Unclassified (2 sources) Follow-up with [...] Range Facility Office Visiton 12-09-2024 Follow-up visit [id number] Seun Calderon 1955 M Date Provider Department Center 12/09/2024 [address] [facility] Family History Family Status - Relation Status Age at Mother Father Level of Service:14931 [place] OFFICE/OUTPATIENT NEW MODERATE MDM 45 MINUTES Normal [facility] Ambulatory Visit Summaryon 0 12-02-2024 Ambulatory Visit Summary Ambulatory Visit Summary DEMARCUS CALDERON :1955 Visit Date:12/02/2024 Ambulatory Visit Instructions Your Diagnosis BPH with obstruction/lower urinary tract symptoms Urinary retention Elevated PSA Your Care Team Attending Physician - EMILE SHELLEY, John Hauser Primary Care Physician - Ching DELACRUZ, Srea Calabrese This Is Your Medications List Contact [...] AM EST With: Where: [facility] [address] [place] [address]- Sunday2025 9:45 AM EST With: John BAPTISTE MD Where: [facility] [address] 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 (more content not included)... Normal [facility] Urology Office/Clinic Noteon 12-02-2024 Urology Office/Clinic [...] Information EMILE SHELLEY, John Hauser, URL [address] [place], [place] [id number]- Additional Instructions: 6 mos w/ PSA and [...] with voice recognition artificial intelligence software, specifically Octopusapp, Pley and or Pear Deck. Substitutions may have occurred due to the inherent limitations of voice recognition and artificial intelligence software. 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 Im (more content not included)... Normal [facility] Comment on above: Result Comment: Elec tronically Signed By: John BAPTISTE MD\.br\Date and Time Signed: 12/02/24 08:27 EDT\.br\Electronically Co-Signed By: Medina Farley\.br\Date and Time Co-Signed: 12/02/24 08:25 EDT [facility]icon [facility]acic [facility] [place] [address] [place] [address] Echocardiogram Signed Patient: Demarcus Calderon MR#: [id number] : 1955 Acct:[id number] Age/Sex: 69 / M ADM Date: 11/21/24 Loc: Room: Type: [facility] Attending Dr: Kiya Richmond APRN Ordering Provider: Kiya Richmond APRN Date of Service: 11/21/24/ [facility]: ISCHEMIC CARDIOMYOPATHY Copies to: WILLIAN Garcia MD BSA: 2.1 m2 BP: 127/80 mmHg HR: 74 Reason For Study: ISCHEMIC CARDIOMYOPATHY History: HTN, HLD, Former Smoker, MS, Stents, Emphysema, COVID Interpretation Summary Ejection Fraction [...] mmHg Transcribed By: ARMANDO Performed At: 11/21/24 8396 Signed By: Alex Gaston MD 11/21/24 1535 Normal [facility] Basic Metabolic Panelon GFR/1.73 sq M.predicted MDRD (S/P/Bld) [Vol rate/Area] mL/min/{1.73_m2} Normal [facility] Comment on above: Performed By: #### B MP #### [address] Calcium [Mass/volume] in Ser um or PlasmaOrdered By: Kiya Richmond on 10-31-2024 Calcium [Mass/Vol] Calcium [Mass/volume ] in Serum or Plasma 8.6-10.3 [facility] Calcium [Mass/Vol] 8.6 mg/dL Normal 8.6-10.3 [facility] Comment on above: Result Comment: PERF ORMED BY: [facility] [address] [place] [address] PATHOLOGIST WHITE METAL CORROSION PROOFER ERASMO SADLER M.D. Performed By: #### B MP #### [facility] [address] Carbon dioxide, total [Moles /volume] in Serum or PlasmaOrdered By: Kiya Richmond on 10-31-2024 CO2 [Moles/Vol] Carbon dioxide, tota l [Moles/volume] in Serum or Plasma 21.0-31.0 [facility] CO2 [Moles/Vol] 25.4 mmol/L Normal 21.0-31.0 [facility] Comment on above: Performed By: #### B MP #### [facility] [address] [place] [address] Chloride [Moles/volume] in S taylor or PlasmaOrdered By: Kiya Richmond on 10-31-2024 Chloride [Moles/Vol] Chloride [Moles/vol ume] in Serum or Plasma 98-107 [facility] Chloride [Moles/Vol] 100 mmol/L Normal 98-107 [facility] Comment on above: Performed By: #### B MP #### [facility] [address] [place] [address] Creatinine [Mass/volume] in Serum or PlasmaOrdered By: Kiya Richmond on 10-31-2024 Creatinine [Mass/Vol] Creatinine [Mass/v olume] in Serum or Plasma 0.70-1.30 [facility] Creatinine [Mass/Vol] 0.97 mg/dL Normal 0.70-1.30 [facility] Comment on above: Performed By: #### B MP #### [facility] [address] [place] [address] [place] Glucose [Mass/volume] in Ser um or PlasmaOrdered By: Kiya Richmond on 10-31-2024 Glucose [Mass/Vol] Glucose [Mass/volume ] in Serum or Plasma High 70-100 [facility] Comment on above: ADA recommended refe rence rangeRandom Glucose Reference Range is dependent on time and content of last meal. Glucose of more than 200 mg/dL in a nonstressed, ambulatory subject supports the diagnosis of Diabetes Mellitus. Glucose [Mass/Vol] 115 mg/dL High 70-100 [facility] Comment on above: ADA recommended refe rence rangeRandom Glucose Reference Range is dependent on time and content of last meal. Glucose of more than 200 mg/dL in a nonstressed, ambulatory subject supports the diagnosis of Diabetes Mellitus. Result Comment: [place] om Glucose Reference Range is dependent on time and content of last meal. Glucose of more than 200 mg/dL in a nonstressed, ambulatory subject supports the diagnosis of Diabetes Mellitus. ADA recommended reference range Performed By: #### B MP #### [facility] [address] [place] [address] No Panel InformationOrdered By: Kiya Richmond on 10-31-2024 Estimated GFR (CKD-EPI) > 60.0 mL/Min [facility] Creatinine Clearance (Chem N/A [facility] Potassium [Moles/volume] in Serum or PlasmaOrdered By: Kiya Richmond on 10-31-2024 Potassium [Moles/Vol] Potassium [Moles/v olume] in Serum or Plasma 3.5-5.1 [facility] Potassium [Moles/Vol] 4.0 mmol/L Normal 3.5-5.1 [facility] Comment on above: Performed By: #### B MP #### [facility] [address] [place] [address] Serum or plasma anion gap de terminationOrdered By: Kiya Richmond on 10-31-2024 Anion gap [Moles/Vol] Serum or plasma an ion gap determination 6.0-15.0 [facility] Anion gap [Moles/Vol] 12.6 mmol/L Normal 6.0-15.0 [facility] Comment on above: Performed By: #### B MP #### [facility] [address] [place] [address] Sodium [Moles/volume] in Ser um or PlasmaOrdered By: Kiya Richmond on 10-31-2024 Sodium [Moles/Vol] Sodium [Moles/volume ] in Serum or Plasma Low 136-145 [facility] Sodium [Moles/Vol] 134 mmol/L Low 136-145 [facility] Comment on above: Performed By: #### B MP #### [facility] [address] Urea nitrogen [Mass/volume] in Serum or PlasmaOrdered By: Kiya Richmond on 10-31-2024 Urea nitrogen [Mass/Vol] Urea nitrogen [Mass/volume] in Serum or Plasma 12-19 [facility] Urea nitrogen [Mass/Vol] 16 mg/dL Normal 12-19 [facility] Comment on above: Performed By: #### B MP #### [facility] [address] Basic Metabolic Panelon 09-26 Creatinine Clr Calc Pharmacy 96.55 Normal [facility] Comment on above: Performed By: #### M BHAKTI Alcantar, BMP #### [facility] [address] GFR/1.73 sq M.predicted MDRD (S/P/Bld) [Vol rate/Area] mL/min/{1.73_m2} Normal [facility] Comment on above: Performed By: #### M BHAKTI Alcantar, BMP #### [facility] [address] Calcium [Mass/volume] in Ser um or PlasmaOrdered By: Vincenzo Caraballo on 10-18-2024 Calcium [Mass/Vol] Calcium [Mass/volume ] in Serum or Plasma Low 8.6-10.3 [facility] Calcium [Mass/Vol] 8.4 mg/dL Low 8.6-10.3 [facility] Comment on above: Performed By: #### M BHAKTI Alcantar, BMP #### [facility] [address] [place] [id number] [place] Carbon dioxide, total [Moles /volume] in Serum or PlasmaOrdered By: Vincenzo Caraballo on 10-18-2024 CO2 [Moles/Vol] Carbon dioxide, tota l [Moles/volume] in Serum or Plasma 21.0-31.0 [facility] CO2 [Moles/Vol] 22.4 mmol/L Normal 21.0-31.0 [facility] Comment on above: Performed By: #### M BHAKTI Alcantar, BMP #### [facility] [address] Chloride [Moles/volume] in S taylor or PlasmaOrdered By: Vincenzo Caraballo on 10-18-2024 Chloride [Moles/Vol] Chloride [Moles/vol ume] in Serum or Plasma 98-107 [facility] Chloride [Moles/Vol] 98 mmol/L Normal 98-107 [facility] Comment on above: Performed By: #### M BHAKTI Alcantar, BMP #### [facility] [address] Creatinine [Mass/volume] in Serum or PlasmaOrdered By: Vincenzo Caraballo on 10-18-2024 Creatinine [Mass/Vol] Creatinine [Mass/v olume] in Serum or Plasma 0.70-1.30 [facility] Creatinine [Mass/Vol] 0.76 mg/dL Normal 0.70-1.30 [facility] Comment on above: Performed By: #### M BHAKTI Alcantar, BMP #### [facility] [address] Erythrocyte distribution wid th Auto (RBC) [Ratio]Ordered By: Vincenzo Caraballo on 10-18-2024 Erythrocyte distribution width (RBC) [Ratio] Erythrocyte distribution width [Ratio] by Automated count High 12.0-14.8 [facility] Erythrocyte distribution wid th [Ratio] by Automated countOrdered By: Vincenzo Caraballo on 10-18-2024 Erythrocyte distribution width (RBC) [Ratio] 15.8 % High 12.0-14.8 [facility] Comment on above: Performed By: #### M BHAKTI Alcantar, BMP #### [facility] [address] [place] [address] [place] Erythrocytes [#/volume] in B lood by Automated countOrdered By: Vincenzo Caraballo on 10-18-2024 RBC (Bld) [#/Vol] 5.20 10*6/uL Normal 3.90-5.60 [facility] Comment on above: Performed By: #### M BHAKTI Alcantar, BMP #### [facility] [address] Glucose [Mass/volume] in Ser um or PlasmaOrdered By: Vincenzo Caraballo on 10-18-2024 Glucose [Mass/Vol] Glucose [Mass/volume ] in Serum or Plasma High 70-100 [facility] Comment on above: ADA recommended refe rence rangeRandom Glucose Reference Range is dependent on time and content of last meal. Glucose of more than 200 mg/dL in a nonstressed, ambulatory subject supports the diagnosis of Diabetes Mellitus. Glucose [Mass/Vol] 124 mg/dL High 70-100 [facility] Comment on above: ADA recommended refe rence rangeRandom Glucose Reference Range is dependent on time and content of last meal. Glucose of more than 200 mg/dL in a nonstressed, ambulatory subject supports the diagnosis of Diabetes Mellitus. Result Comment: [place] om Glucose Reference Range is dependent on time and content of last meal. Glucose of more than 200 mg/dL in a nonstressed, ambulatory subject supports the diagnosis of Diabetes Mellitus. ADA recommended reference range Performed By: #### M BHAKTI Alcantar, BMP #### [facility] [address] Hematocrit Auto (Bld) [Volum e fraction]Ordered By: Vincenzo Caraballo on 10-18-2024 Hematocrit (Bld) [Volume fraction] Hematocrit [Volume Fraction] of Blood by Automated count 38.8-50.0 [facility] Hematocrit [Volume Fraction] of Blood by Automated countOrdered By: Vincenzo Caraballo on 10-18-2024 Hematocrit (Bld) [Volume fraction] 43.5 % Normal 38.8-50.0 [facility] Comment on above: Performed By: #### M BHAKTI Alcantar, BMP #### [facility] [address] Hemoglobin [Mass/volume] in BloodOrdered By: Vincenzo Caraballo on 10-18-2024 Hemoglobin (Bld) [Mass/Vol] Hemoglobin [Mass/volume] in Blood 13.0-17.0 [facility] Hemoglobin (Bld) [Mass/Vol] 14.9 g/dL Normal 13.0-17.0 [facility] Comment on above: Performed By: #### M BHAKTI Alcantar, GIOVANNA #### [facility] [address] [place] [address] Hemogram CBC Without Diffon 10-18-2024 Mean Corpuscular HGB Conc 34.2 g/dL Normal 32.5-35.6 [facility] Comment on above: Performed By: #### M BHAKTI Alcantar, GIOVANNA #### [address] WBC (Bld) [#/Vol] 11.5 10*3/uL High 4.1-10.5 [facility] Comment on above: Performed By: #### BHAKTI Yates BMP #### [address] Leukocytes [#/volume] correc zakiya for nucleated erythrocytes in Blood by Automated counOrdered By: Vincenzo Caraballo on 10-18-2024 WBC corrected for nucl RBC Auto (Bld) [#/Vol] Leukocytes [#/volume] corrected for nucleated erythrocytes in Blood by Automated coun High 4.1-10.5 [facility] WBC corrected for nucl RBC Auto (Bld) [#/Vol] 11.5 10*3/uL High 4.1-10.5 [facility] MCH Auto (RBC) [Entitic mass ]Ordered By: Vincenzo Caraballo on 10-18-2024 MCH (RBC) [Entitic mass] MCH [Entitic mass] by Automated count 27.5-35.2 [facility] MCH [Entitic mass] by Automa zakiya countOrdered By: Vincenzo Caraballo on 10-18-2024 MCH (RBC) [Entitic mass] 28.7 pg Normal 27.5-35.2 [facility] Comment on above: Performed By: #### BHAKTI Yates, GIOVANNA #### [address] MCHC Auto (RBC) [Mass/Vol]Or dered By: Vincenzo Caraballo on 10-18-2024 MCHC (RBC) [Mass/Vol] MCHC [Mass/volume] by Automated count 32.5-35.6 [facility] MCHC (RBC) [Mass/Vol] 34.2 g/dL 32.5-35.6 [facility] MCV Auto (RBC) [Entitic vol] Ordered By: Vincenzo Caraballo on 10-18-2024 MCV (RBC) [Entitic vol] MCV [Entitic volume] by Automated count 83.5-101 [facility] MCV [Entitic volume] by Auto mated countOrdered By: Vincenzo Caraballo on 10-18-2024 MCV (RBC) [Entitic vol] 83.8 fL Normal 83.5-101 [facility] Comment on above: Performed By: #### BHAKTI Yates, BMP #### [facility] [address] Magnesium [Mass/volume] in S taylor or PlasmaOrdered By: Vincenzo Caraballo on 10-18-2024 Magnesium [Mass/Vol] Magnesium [Mass/vol ume] in Serum or Plasma 1.9-2.7 [facility] Magnesium [Mass/Vol] 2.3 mg/dL Normal 1.9-2.7 [facility] Comment on above: Result Comment: PERF ORMED BY: [place] [address] PATHOLOGIST WHITE METAL CORROSION PROOFER ERASMO SADLER M.D. Performed By: #### BHAKTI Yates, BMP #### [facility] [address] [place] [address] No Panel InformationOrdered By: Vincenzo Caraballo on 10-18-2024 Estimated GFR (CKD-EPI) > 60.0 mL/Min [facility] Creatinine Clearance (Chem 96.55 [facility] Platelet mean volume Auto (B ld) [Entitic vol]Ordered By: Vincenzo Caraballo on 10-18-2024 Platelet mean volume (Bld) [Entitic vol] Platelet mean volume [Entitic volume] in Blood by Automated count 6.6-10.1 [facility] Platelet mean volume [Entiti c volume] in Blood by Automated countOrdered By: Vincenzo Caraballo on 10-18-2024 Platelet mean volume (Bld) [Entitic vol] 8.0 fL Normal 6.6-10.1 [facility] Comment on above: Result Comment: PERF ORMED BY: [place] [address] PATHOLOGIST WHITE METAL CORROSION PROOFER ERASMO SADLER M.D. Performed By: #### Charlotte Alcantar, CBCNO, BMP #### [address] Platelets Auto (Bld) [#/Vol] Ordered By: Vincenzo Caraballo on 10-18-2024 Platelets (Bld) [#/Vol] Platelets [#/volume] in Blood by Automated count 150-450 [facility] Platelets [#/volume] in Bloo d by Automated countOrdered By: Vincenzo Caraballo on 10-18-2024 Platelets (Bld) [#/Vol] 194 10*3/uL Normal 150-450 [facility] Comment on above: Performed By: #### Charlotte Alcantar, CBCNO, BMP #### [address] Potassium [Moles/volume] in Serum or PlasmaOrdered By: Vincenzo Caraballo on 10-18-2024 Potassium [Moles/Vol] Potassium [Moles/v olume] in Serum or Plasma 3.5-5.1 [facility] Potassium [Moles/Vol] 4.0 mmol/L Normal 3.5-5.1 [facility] Comment on above: Performed By: #### Charlotte Alcantar, CBCNO, BMP #### [address] RBC Auto (Bld) [#/Vol]Ordere d By: Vincenzo Caraballo on 10-18-2024 RBC (Bld) [#/Vol] Erythrocytes [#/volu me] in Blood by Automated count 3.90-5.60 [facility] Serum or plasma anion gap de terminationOrdered By: Vincenzo Caraballo on 10-18-2024 Anion gap [Moles/Vol] Serum or plasma an ion gap determination 6.0-15.0 [facility] Anion gap [Moles/Vol] 12.6 mmol/L Normal 6.0-15.0 [facility] Comment on above: Performed By: #### M BHAKTI Alcantar, BMP #### [facility] [address] Sodium [Moles/volume] in Ser um or PlasmaOrdered By: Vincenzo Caraballo on 10-18-2024 Sodium [Moles/Vol] Sodium [Moles/volume ] in Serum or Plasma Low 136-145 [facility] Sodium [Moles/Vol] 129 mmol/L Low 136-145 [facility] Comment on above: Performed By: #### M BHAKTI Alcantar, BMP #### [address] Urea nitrogen [Mass/volume] in Serum or PlasmaOrdered By: Vincenzo Caraballo on 10-18-2024 Urea nitrogen [Mass/Vol] Urea nitrogen [Mass/volume] in Serum or Plasma 12-19 [facility] Urea nitrogen [Mass/Vol] 20 mg/dL Normal 12-19 [facility] Comment on above: Performed By: #### M BHAKTI Alcantar, BMP #### [address] Basic Metabolic Panelon 09-26 Anion gap [Moles/Vol] 13.3 mmol/L Normal 6.0-15.0 [facility] Comment on above: Performed By: #### B MP, CBC, MG #### [address] Calcium [Mass/Vol] 8.8 mg/dL Normal 8.6-10.3 [facility] Comment on above: Performed By: #### B MP, CBC, MG #### [place] [address] [place] Chloride [Moles/Vol] 98 mmol/L Normal 98-107 [facility] Comment on above: Performed By: #### B MP, CBC, MG #### [place] [address] [place] CO2 [Moles/Vol] 27.2 mmol/L Normal 21.0-31.0 [facility] Comment on above: Performed By: #### B MP, CBC, MG #### [address] Creatinine [Mass/Vol] 0.89 mg/dL Normal 0.70-1.30 [facility] Comment on above: Performed By: #### B MP, CBC, MG #### [place] [address] [place] Creatinine Clr Calc Pharmacy 87.13 Normal [facility] Comment on above: Performed By: #### B MP, CBC, MG #### [place] [address] [place] GFR/1.73 sq M.predicted MDRD (S/P/Bld) [Vol rate/Area] mL/min/{1.73_m2} Normal [facility] Comment on above: Performed By: #### B MP, CBC, MG #### [address] Glucose [Mass/Vol] 131 mg/dL High 70-100 [facility] Comment on above: Result Comment: [facility] Glucose Reference Range is dependent on time and content of last meal. Glucose of more than 200 mg/dL in a nonstressed, ambulatory subject supports the diagnosis of Diabetes Mellitus. ADA recommended reference range Performed By: #### B MP, CBC, MG #### [address] Potassium [Moles/Vol] 4.5 mmol/L Normal 3.5-5.1 [facility] Comment on above: Result Comment: Hemo lysis is present at a level that could interfere with the result. Contact lab if redraw is required Performed By: #### B MP, CBC, MG #### [address] Sodium [Moles/Vol] 134 mmol/L Low 136-145 [facility] Comment on above: Performed By: #### B MP, CBC, MG #### [place] [address] [place] Urea nitrogen [Mass/Vol] 22 mg/dL Normal 7-25 [facility] Comment on above: Performed By: #### B MP, CBC, MG #### [facility] [address] Basophils Auto (Bld) [#/Vol] Ordered By: Tootie Richmond on 10-17-2024 Basophils (Bld) [#/Vol] Automated basophil count 0.0-0.[address] [facility] Basophils [#/volume] in Bloo d by Automated countOrdered By: Tootie Richmond on 10-17-2024 Basophils (Bld) [#/Vol] 0.0 10*3/uL Normal 0.0-0.2 [facility] Comment on above: Result Comment: PERF ORMED BY: [address] [place] [address] PATHOLOGIST WHITE METAL CORROSION PROOFER FIORELLA BRIAN M.D. Performed By: #### B MP, CBC, MG #### [facility] [address] [place] [address] Basophils/100 WBC Auto (Bld) Ordered By: Tootie Richmond on 10-17-2024 Basophils/100 WBC (Bld) Automated basophil % . [facility] Basophils/100 leukocytes in Blood by Automated countOrdered By: Tootie Richmond on 10-17-2024 Basophils/100 WBC (Bld) 0.2 % Normal . [facility] Comment on above: Performed By: #### B MP, CBC, MG #### [facility] [address] [place] [address] Capillary blood glucose maged urement by glucometer (mass/volume)Ordered By: Vincenzo Caraballo on 10-17-2024 Glucose [Mass/Vol] 144 mg/dL Normal [facility] Comment on above: Random Glucose Refer ence Range is dependent on time and content of last meal. Glucose of more than 200 mg/dL in a nonstressed, ambulatory subject supports the diagnosis of Diabetes Mellitus. Result Comment: [place] [facility] Glucose Reference Range is dependent on time and content of last meal. Glucose of more than 200 mg/dL in a nonstressed, ambulatory subject supports the diagnosis of Diabetes Mellitus. Performed By: #### G SHY #### Point of Care testing , Complete Blood Count Auto Di ffon 10-17-2024 Erythrocyte distribution width (RBC) [Ratio] 15.5 % High 12.0-14.8 [facility] Comment on above: Performed By: #### B MP, CBC, MG #### [address] Hematocrit (Bld) [Volume fraction] 44.7 % Normal 38.8-50.0 [facility] Comment on above: Performed By: #### B MP, CBC, MG #### [address] Hemoglobin (Bld) [Mass/Vol] 15.2 g/dL Normal 13.0-17.0 [facility] Comment on above: Performed By: #### B MP, CBC, MG #### [address] MCH (RBC) [Entitic mass] 28.5 pg Normal 27.5-35.2 [facility] Comment on above: Performed By: #### B MP, CBC, MG #### [address] MCV (RBC) [Entitic vol] 84.2 fL Normal 83.5-101 [facility] Comment on above: Performed By: #### B MP, CBC, MG #### [address] Mean Corpuscular HGB Conc 33.9 g/dL Normal 32.5-35.6 [facility] Comment on above: Performed By: #### B MP, CBC, MG #### [address] NRBC% 0.1 /100{WBC} Normal 0-0.5 [facility] Comment on above: Performed By: #### B MP, CBC, MG #### [address] Platelet mean volume (Bld) [Entitic vol] 8.1 fL Normal 6.6-10.1 [facility] Comment on above: Performed By: #### B MP, CBC, MG #### [facility] [address] Platelets (Bld) [#/Vol] 211 10*3/uL Normal 150-450 [facility] Comment on above: Performed By: #### B MP, CBC, MG #### [facility] [address] RBC (Bld) [#/Vol] 5.31 10*6/uL Normal 3.90-5.60 [facility] Comment on above: Performed By: #### B MP, CBC, MG #### [facility] [address] [place] [address] [place] Eosinophils Auto (Bld) [#/Vo l]Ordered By: Tootie Richmond on 10-17-2024 Eosinophils (Bld) [#/Vol] Automated eosinophil count 0.0-0.45 [facility] Eosinophils [#/volume] in Bl ood by Automated countOrdered By: Tootie Richmond on 10-17-2024 Eosinophils (Bld) [#/Vol] 0.3 10*3/uL Normal 0.0-0.45 [facility] Comment on above: Performed By: #### B MP, CBC, MG #### [address] Eosinophils/100 WBC Auto (Bl d)Ordered By: Tootie Richmond on 10-17-2024 Eosinophils/100 WBC (Bld) Automated eosinophil % . [facility] Eosinophils/100 leukocytes i n Blood by Automated countOrdered By: Tootie Richmond on 10-17-2024 Eosinophils/100 WBC (Bld) 1.8 % Normal . [facility] Comment on above: Performed By: #### B MP, CBC, MG #### [address] Glucose Glucometer (BldC) [M ass/Vol]Ordered By: Vincenzo Caraballo on 10-17-2024 Glucose [Mass/Vol] Capillary blood gluc ose measurement by glucometer (mass/volume) [facility] Comment on above: Random Glucose Refer ence Range is dependent on time and content of last meal. Glucose of more than 200 mg/dL in a nonstressed, ambulatory subject supports the diagnosis of Diabetes Mellitus. Glucose Poct Glucometerson 0 10-17-2024 Commemt1 Glu2: Cleaned Meter Normal [facility] Comment on above: Result Comment: PERF ORMED BY: [place] [address] PATHOLOGIST WHITE METAL CORROSION PROOFER FIORELLA BRIAN M.D. Performed By: #### G LULS #### Point of Care testing , Leukocytes [#/volume] in Blo od by Automated countOrdered By: Tootie Richmond on 10-17-2024 WBC (Bld) [#/Vol] 14.6 10*3/uL High 4.1-10.5 [facility] Comment on above: Performed By: #### B MP, CBC, MG #### [facility] [address] [place] [address] Lymphocytes Auto (Bld) [#/Vo l]Ordered By: Tootie Richmond on 10-17-2024 Lymphocytes (Bld) [#/Vol] Lymphocytes [#/volume] in Blood by Automated count 1.00-4.8 [facility] Lymphocytes [#/volume] in Bl ood by Automated countOrdered By: Tootie Richmond on 10-17-2024 Lymphocytes (Bld) [#/Vol] 2.4 10*3/uL Normal 1.00-4.8 [facility] Comment on above: Performed By: #### B MP, CBC, MG #### [facility] [address] [place] [address] [place] Lymphocytes/100 WBC Auto (Bl d)Ordered By: Tootie Richmond on 10-17-2024 Lymphocytes/100 WBC (Bld) Lymphocytes/100 leukocytes in Blood by Automated count . [facility] Lymphocytes/100 leukocytes i n Blood by Automated countOrdered By: Tootie Richmond on 10-17-2024 Lymphocytes/100 WBC (Bld) 16.3 % Normal . [facility] Comment on above: Performed By: #### B MP, CBC, MG #### [facility] [address] Magnesiumon 10-17-2024 Magnesium [Mass/Vol] 2.2 mg/dL Normal 1.9-2.7 [facility] Comment on above: Result Comment: PERF ORMED BY: [place] [address] PATHOLOGIST WHITE METAL CORROSION PROOFER FIORELLA BRIAN M.D. Performed By: #### B MP, CBC, MG #### [facility] [address] Monocytes Auto (Bld) [#/Vol] Ordered By: Tootie Richmond on 10-17-2024 Monocytes (Bld) [#/Vol] Automated blood monocyte count High 0.0-0.8 [facility] Monocytes [#/volume] in Bloo d by Automated countOrdered By: Tootie Richmond on 10-17-2024 Monocytes (Bld) [#/Vol] 1.1 10*3/uL High 0.0-0.8 [facility] Comment on above: Performed By: #### B MP, CBC, MG #### [facility] [address] [place] [address] Monocytes/100 WBC Auto (Bld) Ordered By: Tootie Richmond on 10-17-2024 Monocytes/100 WBC (Bld) Automated monocyte % . [facility] Monocytes/100 leukocytes in Blood by Automated countOrdered By: Tootie Richmond on 10-17-2024 Monocytes/100 WBC (Bld) 7.2 % Normal . [facility] Comment on above: Performed By: #### B MP, CBC, MG #### [facility] [address] [place] [address] Neutrophils Auto (Bld) [#/Vo l]Ordered By: Tootie Richmond on 10-17-2024 Neutrophils (Bld) [#/Vol] Neutrophils [#/volume] in Blood by Automated count High 1.8-7.7 [facility] Neutrophils [#/volume] in Bl ood by Automated countOrdered By: Tootie Richmond on 10-17-2024 Neutrophils (Bld) [#/Vol] 10.9 10*3/uL High 1.8-7.7 [facility] Comment on above: Performed By: #### B MP, CBC, MG #### [address] Neutrophils/100 WBC Auto (Bl d)Ordered By: Tootie Richmond on 10-17-2024 Neutrophils/100 WBC (Bld) Automated neutrophil % . [facility] Neutrophils/100 leukocytes i n Blood by Automated countOrdered By: Tootie Richmond on 10-17-2024 Neutrophils/100 WBC (Bld) 74.5 % Normal . [facility] Comment on above: Performed By: #### B MP, CBC, MG #### [address] No Panel InformationOrdered By: Vincenzo Caraballo on 10-17-2024 Bedside Glucose Comment Glu2: cleaned meter [facility] Nucleated erythrocytes [Pres ence] in Blood by Automated countOrdered By: Tootie Richmond on 10-17-2024 Nucleated RBC Auto Ql (Bld) Nucleated erythrocytes [Presence] in Blood by Automated count 0-0.5 [facility] Nucleated RBC Auto Ql (Bld) 0.1 /100{WBC} 0-0.5 [facility] Troponin I High Sensitivityo n 10-17-2024 Troponin I High Sensitivity 14 Normal 0-20 [facility] Comment on above: Result Comment: The Troponin units of report have been changed to meet the Chest Pain Accreditation requirement, element EC5.M1l2. Troponin units are changed from pg/ml to ng/L. Also, the decimal is removed and results are in whole numbers. PERFORMED BY: [place] [address] PATHOLOGIST WHITE METAL CORROSION PROOFER ERASMO SADLER M.D. Performed By: #### H S TROP #### [address] Troponin I.cardiac [Mass/vol ume] in Serum or Plasma by Detection limit <= 0.01 ng/Ordered By: Keila Davis on 10-17-2024 Troponin I.cardiac DL <= 0.01 ng/mL [Mass/Vol] Troponin I.cardiac [Mass/volume] in Serum or Plasma by Detection limit <= 0.01 ng/ 0-20 [facility] Comment on above: The Troponin units o [...] <= 0.01 ng/mL [Mass/Vol] 14 ng/L 0-20 [facility] Comment on above: The Troponin units o f report have been changed to meet the Chest Pain Accreditation requirement, element EC5.M1l2. Troponin units are changed from pg/ml to ng/L. Also, the decimal is removed and results are in whole numbers. WBC Auto (Bld) [#/Vol]Ordere d By: Tootie Richmond on 10-17-2024 WBC (Bld) [#/Vol] Leukocytes [#/volume ] in Blood by Automated count High 4.1-10.5 [facility] X-ray reportOrdered By: Keagan Trejo on 10-17-2024 Study report [facility] [place] [address] XRay Report Signed Patient: Demarcus Calderon MR#: [id number] : 1955 Acct:[id number] Age/Sex: 69 / M ADM Date: 5 Loc: Room: [address] [place] [address] Type: ADM IN Attending Dr: Vincenzo Caraballo [...] Miguel Trejo MD 10/17/24944 Signed By: 10/17/24945 [facility] Work Phone: XR chest 2V*on 10-17-2024 XR chest 2V* [facility] [place] [address] [place] [address] XRay Report Signed Patient: Demarcus Calderon MR#: [id number] : 1955 Acct:[id number] Age/Sex: 69 / M ADM Date: 10/16/24 Loc: Room: [address] [place] [address] Type: ADM IN Attending Dr: Vincenzo Caraballo [...] MD 10/17/24944 Signed By: 10/17/24945 Normal [facility] Ambulatory Visit Summaryon [...] John BAPTISTE MD Where: [facility] [address] 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 Normal [facility] Urology Office/Clinic Noteon 08-26-2024 Urology Office/Clinic Note [...] Information EMILE SHELLEY, John Hauser, URL [address] [place] [address]- Additional Instructions: 6-8 wks with PVR Patient Education Benign Prostatic Hyperplasia I, Dayanara Murrell, personally scribed for Dr. Baptiste on 08/26/2024 08:41:13. . Portions of this record may have been created with voice recognition artificial intelligence software, specifically Octopusapp, Pley and or Pear Deck. Substitutions may have occurred due to the inherent limitations of voice recognition and artificial intelligence software. 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 Normal [facility] Comment on above: Result Comment: Elec [...] John BAPTISTE MD Where: [facility] [place] [address] 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 ??? (more content not included)... 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 Please share your experience with us by completing your survey. We appreciate your feedback and thank you for choosing us for your care. Normal [facility] Inpatient Patient Summaryon 08-08-2024 Inpatient Patient Summary Inpatient Patient Summary [place] [address] Clinical Summary Person Information Name: DEMARCUS CALDERON Age: 69 Years : 1955 Sex: Male PCP: Sera Flower PA-C Marital Status: Race: White Ethnicity: Non- or Language: Estonian Visit Id: Visit Reason: BPH WITH LUTS Speciality: Acuity: Enc Type: Outpatient Med Service: Surgery Arrival: 08/08/2024 12:42:16 Discharge: Dispo Type: Address: [address] [place] [phone] Provider Notes: Diagnosis: Other obstructive and reflux uropathy Problems Active BPH with obstruction/lower urinary tract symptoms Chronic prostatitis Urinary retention Elevated PSA Chronic systolic congestive heart failure 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 Stay on the Flomax for now. Some discharge instructions have been provided. If the bleeding gets severe, or the catheter is clogging from blood clots, you need to go to the ER for irrigation. Will make a one week appt. to remove the catheter. Type Location Start Finish [facility] Urology CALL PAT [facility] 08/13/2024 12:00 PM 08/13/2024 12:30 PM Confirmed Patient Education Information: EU - Urolift Discharge Instructions (Custom) [facility] Main OR Intraoperative Recor don 08-08-2024 Main OR Intraoperative Record Main OR Intraoperative Record IntraOp Document Type FTURO Summary Primary Physician: John BAPTISTE MD Finalized Date/Time: 08/08/24 14:01:11 Pt. Name: KVNGDEMARCUS/Sex: 1955 Male Med Rec #: [id number] Physician: John BAPTISTE MD Financial #: [id number] Pt. Type: O Room/Bed: / Admit/Disch: 08/08/24 [...] Dian Jackman Role Performed Surgeon - Primary Linux Unix Administrator - Primary Scrub - Primary Time In [...] CARTRIDGE CARTRIDGE CARTRIDGE Serial Number Lot Number [id number] Chemical Process Project Engineer [employer]OTRACT NEOTRA[employer]OT[employer]CT Catalog ???# [id number] Size Expiration Date 08/19/25 08/19/25 01/22/26 Usage [...] patient problems (more content not included)... Normal [facility] Main OR Preoperative Recordo n 08-08-2024 Main OR Preoperative Record Main OR Preoperative Record Holding Area Document Type FTURO Summary Primary Physician: John BAPTISTE MD Finalized Date/Time: 08/08/24 13:16:05 Pt. Name: DEMARCUS CALDERON/Sex: 1955 Male Med Rec #: [id number] Physician: John BAPTISTE MD Financial #: [id number] Pt. Type: O Room/Bed: / Admit/Disch: 08/08/24 [...] No Pain Comment: N/A Skin Integrity Intact, [place], Warm, & Dry Vitals - EU Blood Pressure 146/74 Pulse 58 bpm Respirations 18 br/min SPO2 95 % Additional None Specimens Comment N/A Specimens Collected Residual Amount - 0 RN Reviewed Yes Post Void Last Modified By: Bonny Brenner 08/08/24 13:15:24 Finalized By: Bonny Brenner Document Signatures Signed By: Bonny Brenner 08/08/24 13:15 Bonny Brenner 08/08/24 13:16 Normal [facility] Operative Reporton Operative Report Operative Report Patient: DEMARCUS CALDERON Age: 69 years Sex: Male : 1955 Associated Diagnoses: None Author: John BAPTISTE MD Procedure Operative Information Details: Date/ Time: 08/08/2024 13:41:00. Pre-Op Dx: Acute urinary retention (KGJ95-IN R33.8, Working, Medical), BPH with obstruction/lower urinary tract symptoms (MDF55-OR N40.1, Working, Medical). Post-Op Dx: Same. Anesthesia [...] procedure (10 mg diazepam, 5/325 mg of Hague), Local Anesthesia (60cc 2% Xylocaine liquid inserted [...] persistent/severe. He agrees with the plan. Normal [facility] Comment on above: Result Comment: Elec tronically Signed By: John BAPTISTE MD\.br\Date and Time Signed: 08/08/24 13:51 EDT Outpatient Surgery Discharge Instructionon 08-08-2024 Outpatient Surgery Discharge Instruction Outpatient Surgery Discharge Instruction [address] [address] Patient Discharge Instructions PERSON INFORMATION [...] Follow up: With: Address: When: John BAPTISTE [address] [place] [address], [address], [place] [phone] Business (1) Comments: Push the fluids to [...] [facility] CALL PAT FT [facility] 08/13/2024 12:00 PM [...] call? Yes (more content not included)... Normal [facility] Urology Office/Clinic Noteon 06-23-2024 Urology Office/Clinic [...] Information John BAPTISTE MD, URL [address] [place] [address]- Additional Instructions: schedule Urolift Patient Education [...] software, specif (more content not included)... Normal [facility] Comment on above: Result Comment: Elec [...] Contact Information ADRIÁN DELACRUZ, SU Esquivel, URL [address] 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 PSA Totalon 04-25-2024 Prostate specific Ag [Mass/Vol] 2.3 ng/mL Normal 0.1-3.5 [facility] Comment on above: Result Comment: The concentration of PSA determined by different manufacturers can vary due to differences in assay methods and reagent specificity. Values obtained from different assay methods cannot be used interchangeably. The methodology used for this result was chemiluminescence using [employer]'s Access Hybritech PSA reagent. Performed By: #### 1 [id number] #### [facility] [address] [place] [address] No Panel Informationon 02-18 [facility] WHITE BLOOD CELLSon 02-19-20 24 WHITE BLOOD CELLS White Blood Cells [facility] WHITE BLOOD CELLS None seen [facility] Activated partial thrombopla stin time (aPTT) in platelet poor plasma by coagulation aOrdered By: Jasper Martinez on 06-14-2023 aPTT Coag (PPP) [Time] 30.2 s 25.1-36.5 [facility] Comment on above: A hematocrit value g reater than 55% may lead to inaccurate results in coagulation testing. Patients having hematocrit values >55% require a special collection tube for coagulation studies. Please contact the laboratory at [phone] for redraw instructions. Alanine aminotransferase [En zymatic activity/volume] in Serum or PlasmaOrdered By: Jasper Martinez on 06-14-2023 ALT [Catalytic activity/Vol] 37 U/L 7-52 [facility] Albumin [Mass/volume] in Ser um or Plasma by Bromocresol green (BCG) dye binding methoOrdered By: Jasper Martinez on 06-14-2023 Albumin BCG dye [Mass/Vol] 4.1 g/dL 3.5-5.7 [facility] Alkaline phosphatase [Enzyma tic activity/volume] in Serum or PlasmaOrdered By: Jasper Martinez on 06-14-2023 ALP [Catalytic activity/Vol] 59 U/L 34-104 [facility] Aspartate aminotransferase [ Enzymatic activity/volume] in Serum or PlasmaOrdered By: Jasper Martinez on 06-14-2023 AST [Catalytic activity/Vol] 29 U/L 13-39 [facility] Basophils Auto (Bld) [#/Vol] Ordered By: Jasper Martinez on 06-14-2023 Basophils (Bld) [#/Vol] 0.0 10*3/uL 0.0-0.2 [facility] Basophils/100 WBC Auto (Bld) Ordered By: Jasper Martinez on 06-14-2023 Basophils/100 WBC (Bld) 0.6 % . [facility] Bilirubin.total [Mass/volume ] in Serum or PlasmaOrdered By: Jasper Martinez on 06-14-2023 Bilirubin [Mass/Vol] 0.4 mg/dL 0.3-1.0 [facility] COVID CepheidOrdered By: Asya Martinez on 06-14-2023 SARS-CoV-2 (COVID-19) Ab IA Ql Negative Negative [facility] Comment on above: This is a duplicate [employer] Xpert Xpress CoV-2/Flu/RSV Plus RNA by RT-PCR result to be used for statistical tracking purpose only. SARS-CoV-2 (COVID-19) RNA VERONA+probe Ql (Unsp spec) [facility] Calcium [Mass/volume] in Ser um or PlasmaOrdered By: Jasper Martinez on 06-14-2023 Calcium [Mass/Vol] 9.0 mg/dL 8.6-10.3 [facility] Carbon dioxide, total [Moles /volume] in Serum or PlasmaOrdered By: Jasper Martinez on 06-14-2023 CO2 [Moles/Vol] 23.4 mmol/L 21.0-31.0 [facility] Chloride [Moles/volume] in S taylor or PlasmaOrdered By: Jasper Martinez on 06-14-2023 Chloride [Moles/Vol] 105 mmol/L 98-107 [facility] Creatine kinase [Enzymatic a ctivity/volume] in Serum or PlasmaOrdered By: Jasper Martinez on 06-14-2023 CK [Catalytic activity/Vol] 185 U/L 30-223 [facility] Creatinine [Mass/volume] in Serum or PlasmaOrdered By: Jasper Martinez on 06-14-2023 Creatinine [Mass/Vol] 0.89 mg/dL 0.70-1.30 [facility] Eosinophils Auto (Bld) [#/Vo l]Ordered By: Jasper Martinez on 06-14-2023 Eosinophils (Bld) [#/Vol] 0.8 10*3/uL 0.0-0.45 [facility] Eosinophils/100 WBC Auto (Bl d)Ordered By: Jasper Martinez on 06-14-2023 Eosinophils/100 WBC (Bld) 9.6 % . [facility] Erythrocyte distribution wid th Auto (RBC) [Ratio]Ordered By: Jasper Martinez on 06-14-2023 Erythrocyte distribution width (RBC) [Ratio] 14.4 % 12.0-14.8 [facility] Globulin Calc (S) [Mass/Vol] Ordered By: Jasper Martinez on 06-14-2023 Globulin (S) [Mass/Vol] 2.5 g/dL [facility] Glucose [Mass/volume] in Ser um or PlasmaOrdered By: Jasper Martinez on 06-14-2023 Glucose [Mass/Vol] 144 mg/dL 70-100 [facility] Comment on above: ADA recommended refe rence rangeRandom Glucose Reference Range is dependent on time and content of last meal. Glucose of more than 200 mg/dL in a nonstressed, ambulatory subject supports the diagnosis of Diabetes Mellitus. Hematocrit Auto (Bld) [Volum e fraction]Ordered By: Jasper Martinez on 06-14-2023 Hematocrit (Bld) [Volume fraction] 40.8 % 38.8-50.0 [facility] Hemoglobin [Mass/volume] in BloodOrdered By: Jasper Martinez on 06-14-2023 Hemoglobin (Bld) [Mass/Vol] 14.3 g/dL 13.0-17.0 [facility] INR in Platelet poor plasma by Coagulation assayOrdered By: Jasper Martinez on 06-14-2023 INR Coag (PPP) [Relative time] 1.1 {INR} [facility] Comment on above: INR Therapeutic Rang [...] (Bld) [#/Vol] 8.1 10*3/uL 4.1-10.5 [facility] Lymphocytes Auto (Bld) [#/Vo l]Ordered By: Jasper Martinez on 06-14-2023 Lymphocytes (Bld) [#/Vol] 1.5 10*3/uL 1.00-4.8 [facility] Lymphocytes/100 WBC Auto (Bl d)Ordered By: Jasper Martinez on 06-14-2023 Lymphocytes/100 WBC (Bld) 18.5 % . [facility] MCH Auto (RBC) [Entitic mass ]Ordered By: Jasper Martinez on 06-14-2023 MCH (RBC) [Entitic mass] 30.1 pg 27.5-35.2 [facility] MCHC Auto (RBC) [Mass/Vol]Or dered By: Jasper Martinez on 06-14-2023 MCHC (RBC) [Mass/Vol] 34.9 g/dL 32.5-35.6 [facility] MCV Auto (RBC) [Entitic vol] Ordered By: Jasper Martinez on 06-14-2023 MCV (RBC) [Entitic vol] 86.2 fL 83.5-101 [facility] Magnesium [Mass/volume] in S taylor or PlasmaOrdered By: Jasper Martinez on 06-14-2023 Magnesium [Mass/Vol] 2.0 mg/dL 1.9-2.7 [facility] Monocyte distribution width [Entitic volume] in Blood by AutomatedOrdered By: Jasper Martinez on 06-14-2023 Monocyte distribution width Auto (Bld) [Entitic vol] 16.39 % 0.00-20.00 [facility] Monocytes Auto (Bld) [#/Vol] Ordered By: Jasper Martinez on 06-14-2023 Monocytes (Bld) [#/Vol] 0.8 10*3/uL 0.0-0.8 [facility] Monocytes/100 WBC Auto (Bld) Ordered By: Jasper Martinez on 06-14-2023 Monocytes/100 WBC (Bld) 10.1 % . [facility] Natriuretic peptide B [Mass/ Vol]Ordered By: Jasper Martinez on 06-14-2023 Natriuretic peptide B (Bld) [Mass/Vol] 67.0 pg/mL 5-100 [facility] Neutrophils Auto (Bld) [#/Vo l]Ordered By: Jasper Martinez on 06-14-2023 Neutrophils (Bld) [#/Vol] 4.9 10*3/uL 1.8-7.7 [facility] Neutrophils/100 WBC Auto (Bl d)Ordered By: Jasper Martinez on 06-14-2023 Neutrophils/100 WBC (Bld) 61.2 % . [facility] No Panel InformationOrdered By: Jasper Martinez on 06-14-2023 Estimated GFR (CKD-EPI) > 60.0 mL/Min [facility] Creatinine Clearance (Chem 92.42 [facility] Nucleated erythrocytes [Pres ence] in Blood by Automated countOrdered By: Jasper Martinez on 06-14-2023 Nucleated RBC Auto Ql (Bld) 0.1 /100{WBC} 0-0.5 [facility] Platelet mean volume Auto (B ld) [Entitic vol]Ordered By: Jasper Martinez on 06-14-2023 Platelet mean volume (Bld) [Entitic vol] 8.4 fL 6.6-10.1 [facility] Platelets Auto (Bld) [#/Vol] Ordered By: Jasper Martinez on 06-14-2023 Platelets (Bld) [#/Vol] 181 10*3/uL 150-450 [facility] Potassium [Moles/volume] in Serum or PlasmaOrdered By: Jasper Martinez on 06-14-2023 Potassium [Moles/Vol] 3.9 mmol/L 3.5-5.1 [facility] Protein [Mass/volume] in Ser um or PlasmaOrdered By: Jasper Martinez on 06-14-2023 Protein [Mass/Vol] 6.6 g/dL 6.4-8.9 [facility] Prothrombin time (PT)Ordered By: Jasper Martinez on 06-14-2023 PT Coag (PPP) [Time] 12.1 s 9.0-12.9 [facility] Comment on above: A hematocrit value g reater than 55% may lead to inaccurate results in coagulation testing. Patients having hematocrit values >55% require a special collection tube for coagulation studies. Please contact the laboratory at [phone] for redraw instructions. RBC Auto (Bld) [#/Vol]Ordere d By: Jasper Martinez on 06-14-2023 RBC (Bld) [#/Vol] 4.74 10*6/uL 3.90-5.60 [facility] Serum or plasma albumin/glob ulin mass ratioOrdered By: Jasper Martinez on 06-14-2023 Albumin/Globulin [Mass ratio] 1.6 {ratio} [facility] Serum or plasma anion gap de terminationOrdered By: Jasper Martinez on 06-14-2023 Anion gap [Moles/Vol] 11.5 mmol/L 6.0-15.0 [facility] Sodium [Moles/volume] in Ser um or PlasmaOrdered By: Jasper Martinez on 06-14-2023 Sodium [Moles/Vol] 136 mmol/L 136-145 [facility] Troponin I.cardiac [Mass/vol ume] in Serum or Plasma by Detection limit <= 0.01 ng/Ordered By: Jasper Martinez on 06-14-2023 Troponin I.cardiac DL <= 0.01 ng/mL [Mass/Vol] 26.8 pg/mL 0.0-20.0 [facility] Urea nitrogen [Mass/volume] in Serum or PlasmaOrdered By: Jasper Martinez on 06-14-2023 Urea nitrogen [Mass/Vol] 12 mg/dL 7 [facility] WBC Auto (Bld) [#/Vol]Ordere d By: Jasper Martinez on 06-14-2023 WBC (Bld) [#/Vol] 8.1 10*3/uL 4.1-10.5 [facility] Cardiac echo study Procedure on 03-20-2023 Ordered by an unspec ified provider. [facility] Alanine aminotransferase [En zymatic activity/volume] in Serum or PlasmaOrdered By: Sera Flower on 02-05-2023 ALT [Catalytic activity/Vol] 51 U/L [facility] Albumin [Mass/volume] in Ser um or Plasma by Bromocresol green (BCG) dye binding methoOrdered By: Sera Flower on 02-05-2023 Albumin BCG dye [Mass/Vol] 4.4 g/dL 3.5-5.7 [facility] Alkaline phosphatase [Enzyma tic activity/volume] in Serum or PlasmaOrdered By: Sera Flower on 02-05-2023 ALP [Catalytic activity/Vol] 61 U/L 34-104 [facility] Aspartate aminotransferase [ Enzymatic activity/volume] in Serum or PlasmaOrdered By: Sera Flower on 02-05-2023 AST [Catalytic activity/Vol] 39 U/L 13-39 [facility] Bilirubin.total [Mass/volume ] in Serum or PlasmaOrdered By: Sera Flower on 02-05-2023 Bilirubin [Mass/Vol] 0.7 mg/dL 0.3-1.0 [facility] Calcium [Mass/volume] in Ser um or PlasmaOrdered By: Sera Flower on 02-05-2023 Calcium [Mass/Vol] 9.1 mg/dL 8.6-10.3 [facility] Carbon dioxide, total [Moles /volume] in Serum or PlasmaOrdered By: Sera Flower on 02-05-2023 CO2 [Moles/Vol] 28.0 mmol/L 21.0-31.0 [facility] Chloride [Moles/volume] in S taylor or PlasmaOrdered By: Sera Flower on 02-05-2023 Chloride [Moles/Vol] 103 mmol/L 98-107 [facility] Creatinine [Mass/volume] in Serum or PlasmaOrdered By: Sera Flower on 02-05-2023 Creatinine [Mass/Vol] 1.00 mg/dL 0.70-1.30 [facility] Globulin Calc (S) [Mass/Vol] Ordered By: Sera Flower on 02-05-2023 Globulin (S) [Mass/Vol] 1.7 g/dL [facility] Glucose [Mass/volume] in Ser um or PlasmaOrdered By: Sera Flower on 02-05-2023 Glucose [Mass/Vol] 93 mg/dL 70-100 [facility] Comment on above: ADA recommended refe rence rangeRandom Glucose Reference Range is dependent on time and content of last meal. Glucose of more than 200 mg/dL in a nonstressed, ambulatory subject supports the diagnosis of Diabetes Mellitus. No Panel InformationOrdered By: Sera Flower on 02-05-2023 Estimated GFR (CKD-EPI) > 60.0 mL/Min [facility] Creatinine Clearance (Chem N/A [facility] No Panel Informationon 02-05 formerly [facility]-Sandu daniel 250 DO Work Phone: Potassium [Moles/volume] in Serum or PlasmaOrdered By: Sera Flower on 02-05-2023 Potassium [Moles/Vol] 4.4 mmol/L 3.5-5.1 [facility] Protein [Mass/volume] in Ser um or PlasmaOrdered By: Sera Flower on 02-05-2023 Protein [Mass/Vol] 6.1 g/dL 6.4-8.9 [facility] Serum or plasma albumin/glob ulin mass ratioOrdered By: Sera Flower on 02-05-2023 Albumin/Globulin [Mass ratio] 2.6 {ratio} [facility] Serum or plasma anion gap de terminationOrdered By: Sera Flower on 02-05-2023 Anion gap [Moles/Vol] 11.4 mmol/L 6.0-15.0 [facility] Sodium [Moles/volume] in Ser um or PlasmaOrdered By: Sera Flower on 02-05-2023 Sodium [Moles/Vol] 138 mmol/L 136-145 [facility] Urea nitrogen [Mass/volume] in Serum or PlasmaOrdered By: Sera Flower on 02-05-2023 Urea nitrogen [Mass/Vol] 15 mg/dL 7-25 [facility] CARDIAC STRESS/REST INJE CTIONon 01-03-2023 [facility] CARDIAC STRESS/REST INJECTION Patient Name: DEMARCUS CALDERON STUDY: MYOCARDIAL PERFUSION STRESS TEST WITH LEXISCAN Performing facility: [facility], [address] [place] [address], [address] [place] [id number] [facility] Provider: Rene Cortez MD, FACC PCP: Dr. Hunter Flower Supervising provider: Danna Davis DO, FACC INDICATION: CAD; HTN Hyperlipidemia Ischemic cardiomyopathy HISTORY: Gender: M; Age: 68 y/o ; Height: 172.72 cm; Weight: 808.9295414 kg. CAD; High Cholesterol; HTN; Quit smoking 38 years ago. Cardiac catheterization on 2009. PTCA on 2009. COMPARISON: Previous nuclear testing completed at [facility]. ACCESSION NUMBER(S): [id number]; [id number]; [id number] ORDERING CLINICIAN: RENE CORTEZ TECHNIQUE: TWO DAY [...] Electronically signed by: RENE CORTEZ MD Normal [facility] No Panel Informationon 01-03 Normal -[facility]-Sandu daniel 250 DO Work Phone: [...] Weight Tips; Status:Complete - Retrospective Authorization; Done: [id number] Some eating tips that can help you lose weight.; Status:Complete - Retrospective Authorization; Done: [id number] Essential hypertension, Ischemic cardiomyopathy Renew: Carvedilol 6.25 MG Oral Tablet (Coreg); TAKE 1 TABLET TWICE DAILY WITH MEALS SocHx: Former smoker Stop: Losartan Potassium 25 MG Oral Tablet Tobacco Use Screening; Status:Complete; Done: [id number] Unlinked Stop: hydroCHLOROthiazide 25 MG Oral Tablet [...] emphasis on low-calorie diet Rene Cortez MD, [facility] Surgical History Problems History of Coronary [...] No a (more content not included)... Normal [facility] Tobacco Screening.on Adult depression screening assessment No [facility] 250 DO Work Phone: Fall risk assessment a) No falls within the last year [facility] 250 DO Work Phone: Tobacco use status CPHS b) No [facility] 250 DO Work Phone: MRI Soft Tissue [...] by Ethan Walsh on 07/16/2022 1246 Normal [facility] MRI Brain w/o + w/on 023 MRI [...] intracranial pathology. Report reported and signed by Saen Trejo on 07/01/2022 0911 Normal [facility] On [employer] Director Shaquille 06-21-2022 RAYSHAWN Telephone (INTMLN) -- DEMARCUS CALDERON ([id number]) 1955 M Date Time Provider Department 06/21/22 DEANDRA BENDER During your visit today, we recorded the following information about you: Delores Veda 06/21/2022 12:54 PM Signed [facility] called today. : 1955 Allergies: Codeine, Codeine-Guaifenesin, and Guaifenesin (home) [phone] (cell) Reason for call: Sasha F:[phone] Asking for the MRI orders and office notes to be faxed over to [facility]. Patient will be having them done there. Patient last appointment: Visit date not found The patients preferred pharmacy has been captured for this encounter? not asked [place] [facility] [place]21/2022 2:03 PM Signed Notes and MRI [...] Status:Closed by ORQUIDEA SIBLEY on 06/21/22 Normal [facility] XR Ribs w/ PA Chest Left*on 03-13-2022 [...] by Ethan Walsh on 03/13/2022 1254 Normal [facility] XR Chest 2 Views*on 01-18-20 22 XR Chest 2 Views* COMPARISON: none TECHNIQUE: Upright PA and lateral views of the chest were obtained. FINDINGS: Heart is normal in size. Lungs are clear and well expanded. No pleural effusion or pneumothorax. The bony thorax is unremarkable. IMPRESSION: NO ACUTE CARDIOPULMONARY ABNORMALITY. Report reported and signed by AMALIA LOGAN on 01/17/2022 1243 Normal [facility] Tobacco Screening.on 022 Adult depression screening assessment No formerly [facility] [employer] 250 DO Work Phone: Fall risk assessment a) No falls within the last year formerly [facility] [employer] 250 DO Work Phone: Tobacco use status CPHS b) No formerly [facility] [employer] 250 DO Work Phone: CT Chest w/Contraston [...] by AMALIA LOGAN on 08/04/2021 1346 Normal [facility] Complete Blood Count with Au to Diffon 07-29-2021 Basophils (Bld) [#/Vol] 0.05 10*3/uL Normal 0.00-0.20 [facility] Comment on above: Performed By: #### C MP, CBCAD #### [facility] [address], [place] [id number] Basophils/100 WBC (Bld) 0.8 % Normal [facility] Comment on above: Performed By: #### C MP, CBCAD #### [facility] [address], [place] [id number] Eosinophils (Bld) [#/Vol] 0.46 10*3/uL Normal 0.02-0.50 [facility] Comment on above: Performed By: #### C JOSE ANTONIO, CBCAD #### [facility] [address], [place] [id number] Eosinophils/100 WBC (Bld) 7.7 % Normal [facility] Comment on above: Performed By: #### C JOSE ANTONIO, CBCAD #### [facility] [address], [place] [id number] Erythrocyte distribution width (RBC) [Ratio] 13.3 % Normal 11.0-15.0 [facility] Comment on above: Performed By: #### C MP, CBCAD #### [facility] [address], [place] [id number] Hematocrit (Bld) [Volume fraction] 42.2 % Normal 38.5-50.0 [facility] Comment on above: Performed By: #### C JOSE ANTONIO, CBCAD #### [facility] [address], [place] [id number] Hemoglobin (Bld) [Mass/Vol] 14.5 g/dL Normal 13.0-17.1 [facility] Comment on above: Performed By: #### C JOSE ANTONIO, CBCAD #### [facility] [address], [place] [id number] Lymphocytes (Bld) [#/Vol] 1.6 10*3/uL Normal 0.9-3.9 [facility] Comment on above: Performed By: #### C JOSE ANTONIO, CBCAD #### [facility] [address], [place] [id number] Lymphocytes/100 WBC (Bld) 26.1 % Normal [facility] Comment on above: Performed By: #### C JOSE ANTONIO, CBCAD #### [facility] [address], [place] [id number] MCH (RBC) [Entitic mass] 29.7 pg Normal 27.0-33.0 [facility] Comment on above: Performed By: #### C JOSE ANTONIO, CBCAD #### [facility] [address], [place] [id number] MCHC (RBC) [Mass/Vol] 34.4 g/dL Normal 32.0-36.0 [facility] Comment on above: Performed By: #### C JOSE ANTONIO, CBCAD #### [facility] [address], [place] [id number] MCV (RBC) [Entitic vol] 86 fL Normal 80-100 [facility] Comment on above: Performed By: #### C MP, CBCAD #### [facility] [address], [place] [id number] Monocytes (Bld) [#/Vol] 0.9 10*3/uL Normal 0.2-0.9 [facility] Comment on above: Performed By: #### C MP, CBCAD #### [facility] [address], [place] [id number] Monocytes/100 WBC (Bld) 14.6 % Normal [facility] Comment on above: Performed By: #### C MP, CBCAD #### [facility] [address], [place] [id number] Neutrophils (Bld) [#/Vol] 3.0 10*3/uL Normal 1.5-7.8 [facility] Comment on above: Performed By: #### C MP, CBCAD #### [facility] [address], [place] [id number] Neutrophils/100 WBC (Bld) 50.5 % Normal [facility] Comment on above: Performed By: #### C MP, CBCAD #### [facility] [address], [place] [id number] Platelet mean volume (Bld) [Entitic vol] 10.90 fL Normal 7.50-12.50 [facility] Comment on above: Performed By: #### C MP, CBCAD #### [facility] [address], [place] [id number] Platelets (Bld) [#/Vol] 166 10*3/uL Normal 140-400 [facility] Comment on above: Performed By: #### C MP, CBCAD #### [facility] [address], [place] [id number] RBC (Bld) [#/Vol] 4.89 10*6/uL Normal 4.20-5.80 [facility] Comment on above: Performed By: #### C MP, CBCAD #### [facility] [address], [place] [id number] RDW-SD 41.2 fL Normal 37.0-50.0 [facility] [employer] [facility] Comment on above: Performed By: #### C MP, CBCAD #### [facility] [address], [place] [id number] WBC (Bld) [#/Vol] 5.9 10*3/uL Normal 3.8-11.0 [facility] [place] [facility] [employer] [facility] Comment on above: Performed By: #### C MP, CBCAD #### [facility] [address], [place] [id number] [facility] 07-29-2021 Albumin [Mass/Vol] 4.6 g/dL Normal 3.6-5.1 [facility] [place] [employer] [facility] Comment on above: Performed By: #### C JOSE ANTONIO, CBCAD #### [facility] [address], [place] [id number] Albumin/Globulin [Mass ratio] 2.7 {ratio} High 1.0-2.5 [facility] [employer] [facility] Comment on above: Performed By: #### C JOSE ANTONIO, CBCAD #### [facility] [address], [place] [id number] ALP [Catalytic activity/Vol] 74 U/L Normal 40-129 [facility] [employer] Comment on above: Performed By: #### C MP, CBCAD #### [facility] [address], [place] [id number] ALT [Catalytic activity/Vol] 55 U/L High 9-46 [facility] [employer] [facility] Comment on above: Result Comment: 04/27 Female reference range changed. Performed By: #### C MP, CBCAD #### [facility] [address], [place] [id number] Anion gap [Moles/Vol] 16 mmol/L Normal 12-20 [facility] [place] [facility] [employer] [facility] Comment on above: Result Comment: Effe ctive 06/02/2019 reference range changed. Performed By: #### C MP, CBCAD #### [facility] [address], [place] [id number] AST [Catalytic activity/Vol] 39 U/L Normal 10-40 [facility] [employer] [facility] Comment on above: Performed By: #### C MP, CBCAD #### [facility] [address], [place] [id number] BUN/CREA 13 Ratio Normal 6-22 [facility] Comment on above: Performed By: #### C MP, CBCAD #### [facility] [address], [place] [id number] Calcium [Mass/Vol] 9.0 mg/dL Normal 8.6-10.2 [facility] On [employer] Director Comment on above: Performed By: #### C MP, CBCAD #### [facility] [address], [place] [id number] Chloride [Moles/Vol] 107 mmol/L Normal 98-107 [facility] Comment on above: Performed By: #### C MP, CBCAD #### [facility] [address], [place] [id number] CO2 [Moles/Vol] 20 mmol/L Normal 20-31 [facility] Comment on above: Performed By: #### C MP, CBCAD #### [facility] [address], [place] [id number] Creatinine [Mass/Vol] 1.0 mg/dL Normal 0.7-1.4 [facility] Comment on above: Performed By: #### C MP, CBCAD #### [facility] [address], [place] [id number] eGFRAA 94 mL/min/1.73m2 Normal >60 [facility] Comment on above: Performed By: #### C MP, CBCAD #### [facility] [address], [place] [id number] eGFRNAA 78 mL/min/1.73m2 Normal >60 [facility] Comment on above: Performed By: #### C MP, CBCAD #### [facility] [address], [place] [id number] Globulin (S) [Mass/Vol] 1.7 g/dL Low 1.9-3.7 [facility] Specialist Comment on above: Performed By: #### C MP, CBCAD #### [facility] [address], [place] [id number] Glucose [Mass/Vol] 121 mg/dL High 65-99 Johann camacho [place] On [employer] Director Comment on above: Result Comment: For FASTING Glucose --- ADA reference ranges: Normal 65-99 mg/dl Prediabetes 100-125 Diabetes >/= 126 Performed By: #### C MP, CBCAD #### [facility] [address], [place] [id number] Potassium [Moles/Vol] 4.2 mmol/L Normal 3.5-5.5 [facility] Comment on above: Performed By: #### C MP, CBCAD #### [facility] [address], [place] [id number] Protein [Mass/Vol] 6.3 g/dL Normal 6.1-8.1 Johann camacho [place] On [employer] Director Comment on above: Performed By: #### C MP, CBCAD #### [facility] [address], [place] [id number] Sodium [Moles/Vol] 139 mmol/L Normal 135-146 Johann [facility] On Air Director Comment on above: Performed By: #### C MP, CBCAD #### [facility] [address], [place] [id number] TBIL <0.3 Normal [facility] Specialist Comment on above: Performed By: #### C MP, CBCAD #### [facility] [address], [place] [id number] Urea nitrogen [Mass/Vol] 12 mg/dL Normal 7-25 [facility] Specialist Comment on above: Performed By: #### C MP, CBCAD #### [facility] [address], [place] [id number] Microalbumin (with Creat)on 07-29-2021 mALB <1.2 Low [facility] Specialist Comment on above: Result Comment: Unab le to calculate mALB/Crea ratio, mALB is <1.2 mg/dL mALB reference range not established. Performed By: #### m ALBC #### [facility] [address], [place] [id number] UCREA 85 mg/dL Normal 39-259 [facility] Specialist Comment on above: Performed By: #### m ALBC #### [facility] [address], [place] [id number] Prostatic Specific Antigen, Totalon 07-29-2021 TPSA 2.330 ng/mL Normal <4.000 [facility] Specialist Comment on above: Result Comment: PSA Test Method: ECLIA/Brandi e 601 Performed By: #### P SA #### [facility] [address] [place], [place] [id number] Q - URINALYSIS,COMPLETEon Appearance (U) CLEAR Normal CLEAR [facility] On Air Director Comment on above: Order Comment: [facility] performed at: [facility], [address] , [address] [place] [address], [address] [place] [address], Branch Service Representative: Rafi Agustin MD [facility] Date/Time: [facility] Results Received Date/Time: [facility] Reported Date/Time: Performed By: #### 3 4F #### [facility] [address] [place] [address] BACTERIA NONE SEEN Normal NONE SEEN [facility] Specialist Comment on above: Order Comment: [facility] performed at: [employer], [employer] [facility], [address] , [address] [place] [address], [address] [place] [address], Branch Service Representative: Rafi Agustin MD [facility] Date/Time: [facility] Results Received Date/Time: [facility] Reported Date/Time: Performed By: #### 3 4F #### [facility] [address] [place] [address] Bilirubin Ql (U) Negative Normal NEGATIVE [facility] Specialist Comment on above: Order Comment: [facility] performed at: [facility], [address] , [address] [place] [address], [address] [place] [address], Branch Service Representative: Rafi Agustin MD [facility] Date/Time: [facility] Results Received Date/Time: [facility] Reported Date/Time: Performed By: #### 3 4F #### [facility] [address] [place] [address] Color (U) YELLOW Normal YELLOW [facility] On Air Director Comment on above: Order Comment: [facility] performed at: [facility], [employer] [facility], [address] [place] [address], [address] [place] [address], [address] [place] [address], Branch Service Representative: Rafi Agustin MD [facility] Date/Time: [facility] Results Received Date/Time: [facility] Reported Date/Time: Performed By: #### 3 4F #### [facility] [address] [place] [address] Glucose Ql (U) Negative Normal NEGATIVE [facility] On Air Director Comment on above: Order Comment: [facility] performed at: [employer], [employer] [facility], [address] [place] [address], [address] [place] [address], [address] [place] [address], Branch Service Representative: Rafi Agustin MD [facility] Date/Time: [facility] Results Received Date/Time: [facility] Reported Date/Time: Performed By: #### 3 4F #### [facility] [address] [place] [address] HYALINE CAST NONE SEEN Normal NONE SEEN [facility] On Air Director Comment on above: Order Comment: [facility] performed at: [facility], [employer] [facility], [address] [facility], [address] [place] [address], [address] [place] [address], Branch Service Representative: Rafi Agustin MD [facility] Date/Time: [facility] Results Received Date/Time: [facility] Reported Date/Time: Performed By: #### 3 4F #### [facility] [address] [place] [address] Ketones Ql (U) Negative Normal NEGATIVE [facility] On Air Director Comment on above: Order Comment: [facility] performed at: [employer], [employer] [facility], [address] [facility], [address] [place] [address], [address] [place] [address], Branch Service Representative: Rafi Agustin MD [facility] Date/Time: [facility] Results Received Date/Time: [facility] Reported Date/Time: Performed By: #### 3 4F #### [facility] [address] [place] [address] Leukocyte esterase Test strip Ql (U) Negative Normal NEGATIVE [facility] On Air Director Comment on above: Order Comment: [facility] performed at: [employer], [employer] [facility], [address] [place] [address], [address] [place] [address], [address] [place] [address], Branch Service Representative: Rafi Agustin MD [facility] Date/Time: [facility] Results Received Date/Time: [facility] Reported Date/Time: Performed By: #### 3 4F #### [facility] [address] [place] [address] Nitrite Ql (U) Negative Normal NEGATIVE [facility] Specialist Comment on above: Order Comment: [facility] performed at: [facility], [address] [place] [address], [address] [place] [address], [address] [place] [address], Branch Service Representative: Rafi Agustin MD [facility] Date/Time: [facility] Results Received Date/Time: [facility] Reported Date/Time: Performed By: #### 3 4F #### [facility] [address] [place] [address] OCCULT BLOOD Negative Normal NEGATIVE [facility] On [employer] Director Comment on above: Order Comment: [facility] performed at: [facility], [address] [place] [address], [address] [place] [address], [address] [place] [address], Branch Service Representative: Rafi Agustin MD [facility] Date/Time: [facility] Results Received Date/Time: [facility] Reported Date/Time: Performed By: #### 3 4F #### [facility] [address] [place] [address] pH (U) 6.5 [pH] Normal 5.0-8.0 [facility] On [employer] Director Comment on above: Order Comment: [facility] performed at: [facility], [address] [facility], [address] [place] [address], [address] [place] [address], Branch Service Representative: Rafi Agustin MD [facility] Date/Time: [facility] Results Received Date/Time: [facility] Reported Date/Time: Performed By: #### 3 4F #### [facility] [address] [place] [address] Protein Ql (U) Negative Normal NEGATIVE [facility] On [employer] Director Comment on above: Order Comment: [facility] performed at: [employer], [employer] [facility], [address] [place] [address], [address] [place] [address], [address] [place] [address], Branch Service Representative: Rafi Agustin MD [facility] Date/Time: [facility] Results Received Date/Time: [facility] Reported Date/Time: Performed By: #### 3 4F #### [facility] [address] [place] [address] RBC NONE SEEN Normal < OR = 2 [facility] On [employer] Director Comment on above: Order Comment: [facility] performed at: [employer], [employer] [facility], [address] [place] [address], [address] [place] [address], [address] [place] [address], Branch Service Representative: Rafi Agustin MD [facility] Date/Time: [facility] Results Received Date/Time: [facility] Reported Date/Time: Performed By: #### 3 4F #### [facility] [address] [place] [address] Specific gravity (U) [Rel density] 1.012 Normal 1.001-1.035 [facility] On Air Director Comment on above: Order Comment: [facility] performed at: [employer], [employer] [facility], [address] [place] [address], [address] [place] [address], [address] [place] [address], Branch Service Representative: Rafi Agustin MD [facility] Date/Time: [facility] Results Received Date/Time: [facility] Reported Date/Time: Performed By: #### 3 4F #### [facility] [address] [place] [address] SQUAMOUS EPITHELIAL CELLS NONE SEEN Normal < OR = 5 [facility] On [employer] Director Comment on above: Order Comment: [facility] performed at: [employer], [employer] [facility], [address] [facility], [address] [place], [place], [address] [place] [address], Branch Service Representative: Rafi Agustin MD [facility] Date/Time: [facility] Results Received Date/Time: [facility] Reported Date/Time: Performed By: #### 3 4F #### [facility] [address] [place] [address] WBC NONE SEEN Normal < OR = 5 [facility] Specialist Comment on above: Order Comment: [facility] performed at: [facility], [employer] [facility], [address] [facility], [address] [place], [address] [place] [address], Branch Service Representative: Rafi Agustin MD [facility] Date/Time: [facility] Results Received Date/Time: [facility] Reported Date/Time: Performed By: #### 3 4F #### [facility] [address] [place] [address] No Panel Information [facility] Vital Signs Date Time Vital Sign Value Performing Clinician Facility 10-24-2024 09:46-0400 Body height 172.7 cm Kiya Richmond PHYSICAL THER-PHYSICIAN CODING SPECIALIST Work Phone: [facility] 10-24-2024 09:46-0400 Body mass index (BMI) [Ratio] 33.82 kg/m2 Kiya Richmond PHYSICAL THER-PHYSICIAN CODING SPECIALIST Work Phone: [facility] 10-24-2024 09:46-040 Body weight 100.88 kg Kyia Richmond PHYSICAL THER-PHYSICIAN CODING SPECIALIST Work Phone: [facility] 10-24-2024 09:46-0400 Diastolic blood pressure 68 mm[Hg] Kiya Richmond PHYSICAL THER-PHYSICIAN CODING SPECIALIST Work Phone: [facility] 10-24-2024 09:46-0400 Heart rate 84 /min Kiya Richmond PHYSICAL THER-PHYSICIAN CODING SPECIALIST Work Phone: [facility] 10-24-2024 09:46-0400 Systolic blood pressure 102 mm[Hg] Kiya Richmond PHYSICAL THER-PHYSICIAN CODING SPECIALIST Work Phone: [facility] 10-18-2024 13:00-0400 Diastolic blood pressure 65 mm[Hg] Sera Flower MD Work Phone: [facility] 10-18-2024 13:00-0400 Heart rate 75 /min Sera Flower MD Work Phone: [facility] 10-18-2024 13:00-0400 Respiratory rate 18 /min Sera Flower MD Work Phone: [facility] 10-18-2024 13:00-0400 SaO2% (BldA) [Mass fraction] 94 % Sera Flower MD Work Phone: [facility] 10-18-2024 13:00-0400 Systolic blood pressure 100 mm[Hg] Sera Flower MD Work Phone: [facility] 10-18-2024 12:00-0400 Body temperature 97.9 [degF] Sera Flower MD Work Phone: [facility] 10-18-2024 09:00-0400 Inhaled oxygen flow rate 2 L/min Sera Flower MD Work Phone: [facility] 10-18-2024 05:22-0400 Body weight 98.9 kg Sera Flower MD Work Phone: [facility] 10-17-2024 15:36-0400 Body height 172.72 cm Sera Flower MD Work Phone: [facility] 09-24-2024 13:29-0400 Body height 172.7 cm Sally Ba NP Work Phone: [facility] 09-24-2024 13:29-0400 Body mass index (BMI) [Ratio] 36.64 kg/m2 Sally Ba NP Work Phone: [facility] 09-24-2024 13:29-0400 Body weight 109.32 kg Sally Risaliti HOP STRAINER Work Phone: [facility] 09-24-2024 13:29-0400 Diastolic blood pressure 64 mm[Hg] Sally Risaliti HOP STRAINER Work Phone: [facility] 09-24-2024 13:29-0400 Heart rate 79 /min Sally Risaliti HOP STRAINER Work Phone: [facility] 09-24-2024 13:29-0400 SaO2% (BldA) [Mass fraction] 96 % Sally Risaliti HOP STRAINER Work Phone: [facility] 09-24-2024 13:29-0400 Systolic blood pressure 130 mm[Hg] Sally Risaliti HOP STRAINER Work Phone: [facility] 07-02-2024 09:14-0500 Body height 172.7 cm Sally Risaliti HOP STRAINER Work Phone: [facility] 07-02-2024 09:14-0500 Body mass index (BMI) [Ratio] 35.88 kg/m2 Sally Risaliti HOP STRAINER Work Phone: [facility] 07-02-2024 09:14-0500 Body weight 107.05 kg Sally Risaliti HOP STRAINER Work Phone: [facility] 07-02-2024 09:14-0500 Diastolic blood pressure 86 mm[Hg] Sally Risaliti HOP STRAINER Work Phone: [facility] 07-02-2024 09:14-0500 Heart rate 71 /min Sally Risaliti HOP STRAINER Work Phone: [facility] 07-02-2024 09:14-0500 SaO2% (BldA) [Mass fraction] 98 % Sally Risaliti HOP STRAINER Work Phone: [facility] 07-02-2024 09:14-0500 Systolic blood pressure 138 mm[Hg] Sally Risaliti HOP STRAINER Work Phone: [facility] 01-27-2025 14:52-0500 Respiratory rate 16 /min John BAPTISTE [facility] 05-15-2024 08:53-0500 Body height 172.7 cm Rene Cortez MD Work Phone: [facility] 05-15-2024 08:53-0500 Body mass index (BMI) [Ratio] 36.28 kg/m2 Rene Cortez MD Work Phone: [facility] 05-15-2024 08:53-0500 Body weight 108.23 kg Rene Cortez MD Work Phone: [facility] 05-15-2024 08:53-0500 Diastolic blood pressure 66 mm[Hg] Rene Cortez MD Work Phone: [facility] 05-15-2024 08:53-0500 Heart rate 60 /min Rene Cortez MD Work Phone: [facility] 05-15-2024 08:53-0500 Systolic blood pressure 124 mm[Hg] Rene Cortez MD Work Phone: [facility] 05-07-2024 17:27-0500 Body mass index (BMI) [Ratio] 36.67 kg/m2 Gurjit Busby HOP STRAINER Work Phone: [facility] 05-07-2024 17:27-0500 Body temperature 97.3 [degF] Gurjit Busby HOP STRAINER Work Phone: [facility] 05-07-2024 17:27-0500 Body weight 109.41 kg Gurjit Busby HOP STRAINER Work Phone: [facility] 05-07-2024 17:27-0500 Diastolic blood pressure 80 mm[Hg] Gurjit Busby HOP STRAINER Work Phone: [facility] 05-07-2024 17:27-0500 Heart rate 73 /min Gurjit Busby HOP STRAINER Work Phone: [facility] 05-07-2024 17:27-0500 SaO2% (BldA) [Mass fraction] 97 % Gurjit Busby HOP STRAINER Work Phone: [facility] 05-07-2024 17:27-0500 Systolic blood pressure 138 mm[Hg] Gurjit Gregory HOP STRAINER Work Phone: [facility] 04-28-2024 11:59-0500 Blood Pressure Location SU ADRIÁN [facility] 04-28-2024 11:59-0500 Diastolic blood pressure 68 mm[Hg] SU ADRIÁN [facility] 04-28-2024 11:59-0500 Heart rate 63 /min SU ADRIÁN [facility] 04-28-2024 11:59-0500 Systolic blood pressure 111 mm[Hg] SU ADRIÁN [facility] 04-16-2024 10:11-0500 Diastolic blood pressure 72 mm[Hg] SU ADRIÁN [facility] 04-16-2024 10:11-0500 Mean blood pressure 90 mm[Hg] SU ADRIÁN [facility] 04-16-2024 10:11-0500 Systolic blood pressure 126 mm[Hg] SU ADRIÁN [facility] 04-16-2024 09:45-0500 Blood Pressure Location SU ADRIÁN [facility] 04-16-2024 09:45-0500 Body temperature 98.6 [degF] SU ADRIÁN [facility] 04-16-2024 09:45-0500 Diastolic blood pressure 80 mm[Hg] SU COOK [facility] 04-16-2024 09:45-0500 Heart rate 65 /min SU COOK [facility] 04-16-2024 09:45-0500 Systolic blood pressure 148 mm[Hg] SU COOK [facility] 03-26-2024 13:03-0400 Body height 172.7 cm Sera Flower MD Work Phone: [facility] 03-26-2024 13:03-0400 Body mass index (BMI) [Ratio] 35.88 kg/m2 Sera Flower MD Work Phone: [facility] 03-26-2024 13:03-0400 Body weight 107.05 kg Sera Flower MD Work Phone: [facility] 03-26-2024 13:03-0400 Diastolic blood pressure 80 mm[Hg] Sera lFower MD Work Phone: [facility] 03-26-2024 13:03-0400 Heart rate 77 /min Sera Flower MD Work Phone: [facility] 03-26-2024 13:03-0400 SaO2% (BldA) [Mass fraction] 96 % Sera Flower MD Work Phone: [facility] 03-26-2024 13:03-0400 Systolic blood pressure 122 mm[Hg] Sera Flower MD Work Phone: [facility] 02-27-2024 10:29-0400 Body height 172.7 cm Sally Ba HOP STRAINER Work Phone: [facility] 02-27-2024 10:29-0400 Body mass index (BMI) [Ratio] 35.43 kg/m2 Sally Ba HOP STRAINER Work Phone: [facility] 02-27-2024 10:29-0400 Body weight 105.69 kg Sally Risaliti HOP STRAINER Work Phone: [facility] 02-27-2024 10:29-0400 Diastolic blood pressure 84 mm[Hg] Sally Risaliti HOP STRAINER Work Phone: [facility] 02-27-2024 10:29-0400 Heart rate 67 /min Sally Risaliti HOP STRAINER Work Phone: [facility] 02-27-2024 10:29-0400 SaO2% (BldA) [Mass fraction] 97 % Sally Risaliti HOP STRAINER Work Phone: [facility] 02-27-2024 10:29-0400 Systolic blood pressure 132 mm[Hg] Sally Risaliti HOP STRAINER Work Phone: [facility] 10-18-2023 09:25-0400 Body height 172.7 cm Rene Cortez MD Work Phone: [facility] 10-18-2023 09:25-0400 Body mass index (BMI) [Ratio] 36.31 kg/m2 Rene Cortez MD Work Phone: [facility] 10-18-2023 09:25-0400 Body weight 108.32 kg Rene Cortez MD Work Phone: [facility] 10-18-2023 09:25-0400 Diastolic blood pressure 76 mm[Hg] Rene Cortez MD Work Phone: [facility] 10-18-2023 09:25-0400 Heart rate 68 /min Rene Cortez MD Work Phone: [facility] 10-18-2023 09:25-0400 Systolic blood pressure 120 mm[Hg] Rene Cortez MD Work Phone: [facility] 06-30-2023 10:23-0500 Body mass index (BMI) [Ratio] 35.28 kg/m2 Hosea Snyder DO Work Phone: [facility] 06-30-2023 10:23-0500 Body temperature 97.81 [degF] Hosea Snyder DO Work Phone: [facility] 06-30-2023 10:23-0500 Body weight 105.23 kg Hosea Snyder DO Work Phone: [facility] 06-30-2023 10:23-0500 Diastolic blood pressure 82 mm[Hg] Hosea Snyder DO Work Phone: [facility] 06-30-2023 10:23-0500 Heart rate 86 /min Hosea Snyder DO Work Phone: [facility] 06-30-2023 10:23-0500 Respiratory rate 18 /min Hosea Snyder DO Work Phone: [facility] 06-30-2023 10:23-0500 SaO2% (BldA) [Mass fraction] 94 % Hosea Snyder DO Work Phone: [facility] 06-30-2023 10:23-0500 Systolic blood pressure 138 mm[Hg] Hosea Snyder DO Work Phone: [facility] 06-14-2023 14:25-0500 Body temperature 97.7 [degF] MD Sera Flower Work Phone: [facility] 06-14-2023 14:25-0500 Diastolic blood pressure 74 mm[Hg] MD Sera Flower Work Phone: [facility] 06-14-2023 14:25-0500 Heart rate 78 /min MD Sera Flower Work Phone: [facility] 06-14-2023 14:25-0500 Respiratory rate 20 /min MD Sera Flower Work Phone: [facility] 06-14-2023 14:25-0500 SaO2% (BldA) [Mass fraction] 95 % MD Sera Flower Work Phone: [facility] 06-14-2023 14:25-0500 Systolic blood pressure 155 mm[Hg] MD Sera Flower Work Phone: [facility] 06-14-2023 11:48-0500 Body height 172.72 cm MD Sera Flower Work Phone: [facility] 06-14-2023 11:48-0500 Body weight 108.9 kg MD Sera Flower Work Phone: [facility] 03-23-2023 09:34-0400 Body height 172.7 cm Rene Cortez MD Work Phone: [facility] 03-23-2023 09:34-0400 Body mass index (BMI) [Ratio] 35.12 kg/m2 Rene Cortez MD Work Phone: [facility] 03-23-2023 09:34-0400 Body weight 104.78 kg Rene Cortez MD Work Phone: [facility] 03-23-2023 09:34-0400 Diastolic blood pressure 72 mm[Hg] Rene Cortez MD Work Phone: [facility] 03-23-2023 09:34-0400 Heart rate 60 /min Rene Cortez MD Work Phone: [facility] 03-23-2023 09:34-0400 Systolic blood pressure 128 mm[Hg] Rene Cortez MD Work Phone: [facility] 09-07-2022 11:31-0400 Body height 172.72 cm Sera Flower Work Phone: WA-Jtsnxbjshu-Chngm daniel 250 DO Work Phone: 09-07-2022 11:31-0400 Body mass index (BMI) [Ratio] 36.8 kg/m2 Sera Flower Work Phone: GD-Vuscrlsazj-Dbhsv daniel 250 DO Work Phone: 09-07-2022 11:31-0400 Body surface area Derived from formula 2.22 m2 Sera Flower Work Phone: GT-Cptatwvzpa-Ivgvh daniel 250 DO Work Phone: 09-07-2022 11:31-0400 Body weight 109.77 kg Sera Flower Work Phone: BV-Nvgzazpyib-Hzpqm daniel 250 DO Work Phone: 09-07-2022 11:31-0400 Diastolic blood pressure 68 mm[Hg] Sera Flower Work Phone: JD-Oruuclwldu-Yohuv daniel 250 DO Work Phone: 09-07-2022 11:31-0400 Heart rate 76 /min Sera Flower Work Phone: LF-Xonpkgcccc-Fhkoh daniel 250 DO Work Phone: 09-07-2022 11:31-0400 Systolic blood pressure 124 mm[Hg] Sera Flower Work Phone: DL-Hqladummrp-Aqrpl daniel 250 DO Work Phone: 09-05-2021 14:04-0400 Body height 172.72 cm Sera Flower Work Phone: [facility] 250 DO Work Phone: 09-05-2021 14:04-0400 Body mass index (BMI) [Ratio] 36.49 kg/m2 Sera Flower Work Phone: [facility] 250 DO Work Phone: 09-05-2021 14:04-0400 Body surface area Derived from formula 2.21 m2 Sera Flower Work Phone: [facility] 250 DO Work Phone: 09-05-2021 14:04-0400 Body weight 108.86 kg Sera Flower Work Phone: [facility] 250 DO Work Phone: 09-05-2021 14:04-0400 Diastolic blood pressure 82 mm[Hg] Sera Flower Work Phone: [facility] 250 DO Work Phone: 09-05-2021 14:04-0400 Heart rate 70 /min Sera Barbara Ching Work Phone: [facility] 250 DO Work Phone: 09-05-2021 14:04-0400 Systolic blood pressure 132 mm[Hg] Sera Flower Work Phone: [facility] 250 DO Work Phone: Encounters Encounter Date Encounter Type Care Provider Facility Start: 06-09-2025 ambulatory John BAPTISTE Facility :[facility] Start: 06-02-2025 ambulatory John BAPTISTE Facility : [facility] Start: 12-09-2024 End: 12-09-2024 ambulatory AB [facility] Start: 12-02-2024 End: 12-02-2024 ambulatory John BAPTISTE Facility: [facility] Start: 12-02-2024 End: 12-02-2024 Patient encounter procedure John BAPTISTE [facility] [place] Start: 11-21-2024 End: 11-21-2024 Patient encounter procedure Kiya Richmond APRN -Electrodiagnostics Work Phone: Start: 11-21-2024 End: 11-21-2024 ambulatory Sera Flower MD Work Phone: [facility] Work Phone: Start: 10-31-2024 End: 10-31-2024 Patient encounter procedure Sera Flower MD Work Phone: [facility] [place] Work Phone: Start: 10-31-2024 End: 10-31-2024 ambulatory Sera Flower MD Work Phone: [facility] Work Phone: Start: 10-24-2024 End: 10-24-2024 Office outpatient visit 25 minutes Kiya Richmond APRN-PHYSICIAN CODING SPECIALIST Work Phone: [facility] Comment on above: BMI 33.0-33.9,adult (Primary Dx); Ischemic cardiomyopathy Start: 10-24-2024 End: 10-24-2024 ambulatory [facility] Ambulatory Start: 10-16-2024 End: 10-18-2024 Evaluation and management of inpatient Sera Flower MD Work Phone: [facility] [place] [facility] Work Phone: Start: 09-24-2024 End: 09-24-2024 Office outpatient visit 25 minutes Sally Ba NP Work Phone: [facility] Comment on above: Gastroesophageal ref lux disease without esophagitis (Primary Dx); Essential hypertension (CMS/HCC); Pure hypercholesterolemia (CMS/HCC); Chronic systolic (congestive) heart failure; Prediabetes; Coronary artery disease involving houlton coronary artery of houlton heart without angina pectoris (CMS/HCC); Severe persistent asthma, uncomplicated (CMS/HCC); Elevated PSA; BMI 36.0-36.9,adult; Morbid (severe) obesity due to excess calories (CMS/HCC); Medicare annual wellness visit, subsequent; ACP (advance care planning) Start: 09-24-2024 End: 09-24-2024 Patient encounter procedure Sally Ba NP Work Phone: [facility] Start: 09-24-2024 End: 09-24-2024 ambulatory SALLY BA Not Available Start: 08-26-2024 End: 08-26-2024 ambulatory John BAPTISTE Facility:[facility] Start: 08-18-2024 End: 08-18-2024 ambulatory Yasemin Peralta Facility:[facility] Start: 08-15-2024 End: 08-15-2024 ambulatory John BAPTISTE Facility:[facility] Start: 08-08-2024 End: 08-08-2024 ambulatory John BAPTISTE Facility:[facility] Start: 08-08-2024 End: 08-08-2024 Patient encounter procedure John BAPTISTE [facility] Start: 07-17-2024 End: 07-17-2024 Bamboo flowsheet Marybeth Long MD Work Phone: [facility] Start: 07-17-2024 End: 07-17-2024 Bamboo flowsheet Marybeth Long MD Work Phone: [facility] Start: 07-17-2024 End: 07-17-2024 Office outpatient new 45 minutes Marybeth Long MD Work Phone: [facility] Comment on above: Epidermal inclusion cyst (Primary Dx); Erythema intertrigo Start: 07-17-2024 End: 07-17-2024 ambulatory MARYBETH LONG Not Available Start: 07-02-2024 End: 07-02-2024 Office outpatient visit 25 minutes Sally Ba HOP STRAINER Work Phone: [facility] IM Comment on above: Chronic obstructive pulmonary disease, unspecified COPD type (CMS/HCC) (Primary Dx); Bronchiectasis without complication (CMS/HCC); Rash; Skin lesion of back; Sebaceous cyst Start: 07-02-2024 End: 07-02-2024 ambulatory SALLY R CHICHOALITI Not Available Start: 06-23-2024 End: 06-23-2024 ambulatory John BAPTISTE Facility:[facility] Start: 06-23-2024 End: 06-23-2024 Patient encounter procedure John BAPTISTE [facility] Start: 05-15-2024 End: 05-15-2024 Office outpatient visit 25 minutes Rene Cortez MD Work Phone: [facility] Comment on above: Coronary artery dise ase involving houlton coronary artery of houlton heart without angina pectoris (Primary Dx); Essential hypertension; Ischemic cardiomyopathy; Mixed hyperlipidemia; Status post coronary artery stent placement; Former smoker; BMI 36.0-36.9,adult; Class 2 obesity Start: 05-15-2024 End: 05-15-2024 ambulatory RENE CORTEZ [facility] Ambulatory Start: 05-07-2024 End: 05-07-2024 ambulatory GURJIT BUSBY Not Available Start: 05-07-2024 End: 05-07-2024 Office outpatient visit 15 minutes Gurjit Busby HOP STRAINER Work Phone: [facility] Comment on above: Non-recurrent acute serous otitis media of right ear (Primary Dx) Start: 04-28-2024 End: 04-28-2024 ambulatory PA-C SU E ADRIÁN Facility:[facility] Start: 04-28-2024 End: 04-28-2024 Patient encounter procedure SU E ADRIÁN [facility] Start: 04-25-2024 End: 04-25-2024 Lab Drop off SU Sierra ADRIÁN [facility] Start: 04-25-2024 End: 04-25-2024 ambulatory PA-C SU E ADRIÁN Facility:[facility] Start: 04-25-2024 End: 04-25-2024 Patient encounter procedure SU E ADRIÁN [facility] Start: 04-16-2024 End: 04-16-2024 ambulatory PA-C SU E ADRIÁN Facility:[facility] Start: 04-16-2024 End: 04-16-2024 Patient encounter procedure SU E ADRIÁN [facility] Start: 03-26-2024 End: 03-26-2024 Office outpatient visit 25 minutes Sera Flower MD Work Phone: [facility] Comment on above: Essential hypertensi on (CMS/HCC) (Primary Dx); Chronic systolic congestive heart failure (CMS/HCC); Coronary artery disease involving houlton coronary artery of houlton heart without angina pectoris (CMS/HCC); Chronic obstructive pulmonary disease, unspecified COPD type (CMS/HCC); Pure hypercholesterolemia (CMS/HCC); Prediabetes; Elevated PSA; Benign prostatic hyperplasia without urinary obstruction; Bacterial pneumonia; Sinus drainage Start: 03-26-2024 End: 03-26-2024 ambulatory SERA FLOWER Not Available Start: 03-05-2024 ambulatory NUBIA COOK Facility:[facility] Start: 02-27-2024 End: 02-27-2024 Transitional care manage srvc 7 day discharge Sally Ba HOP STRAINER Work Phone: [facility] Comment on above: Sepsis, due to unspe cified organism, unspecified whether acute organ dysfunction present (CMS/HCC) (Primary Dx); Pneumonia of right middle lobe due to infectious organism; Hyponatremia; Essential hypertension (CMS/HCC); Chronic systolic congestive heart failure (CMS/HCC); Coronary artery disease involving houlton coronary artery of houlton heart without angina pectoris ([facility]/HCC); Gastroesophageal reflux disease without esophagitis; Benign prostatic [...] 25 minutes Rene Cortez MD Work Phone: [facility] Comment on above: Coronary artery dise ase involving houlton coronary artery of houlton heart without angina pectoris (Primary Dx); Essential hypertension; Mixed hyperlipidemia; Ischemic cardiomyopathy; Status post coronary artery stent placement; Class 2 obesity with body mass index (BMI) of 35.0 to 35.9 in adult, unspecified obesity type, unspecified whether serious comorbidity present; Former smoker Start: 06-30-2023 End: 06-30-2023 Office outpatient visit 25 minutes Hosea Snyder DO Work Phone: [facility] Comment on above: Acute exacerbation o f chronic obstructive pulmonary disease (CMS/HCC) (Primary Dx) Start: 06-14-2023 End: 06-14-2023 Emergency department patient visit MD Sera Flower Work Phone: [facility]-Emergency [facility] Work Phone: Start: 03-23-2023 End: 03-23-2023 Office outpatient visit 25 minutes Rene Cortez MD Work Phone: [facility] Comment on above: Coronary artery dise ase involving houlton coronary artery of houlton heart without angina pectoris; Essential hypertension; Mixed hyperlipidemia; Ischemic cardiomyopathy; Status post coronary artery stent placement; Class 2 obesity with body mass index (BMI) of 35.0 to 35.9 in adult, unspecified obesity type, unspecified whether serious comorbidity present Start: 02-06-2023 Toño Flower Work Phone: formerly [facility] 250 DO Work Phone: Start: 02-05-2023 End: 02-05-2023 ambulatory MD Sera Flower Work Phone: [facility] Work Phone: Start: 02-05-2023 End: 02-05-2023 Patient encounter procedure MD Sera Flower Work Phone: [facility]-Electrodiagnostic s Work Phone: Start: 02-05-[address] Sera Flower Facility:[id number] Start: 01-30-2023 AUDIT Sera Flower Work Phone: formerly [facility] 600 DO Work Phone: Start: 01-15-2023 Other Sera Barbara Flower Work Phone: formerly [facility] 250 DO Work Phone: Start: 01-12-2023 Chart Update Sera Flower Work Phone: formerly [facility] 250 DO Work Phone: Start: 01-04-[address] Sera Flower Facility:[id number] Start: 01-03-[address] Sera Flower Facility:[id number] Start: 11-14-2022 End: 11-14-2022 ambulatory DEANDRA BENDER Facility:[facility] Start: 11-14-2022 End: 11-14-2022 Patient encounter procedure Deandra Bender MD Work Phone: Ophthalmology Comment on above: Clonic hemifacial sp asm, right (Primary Dx) Start: 09-07-2022 Office outpatient vi sit 25 minutes Sera Flower Work Phone: [facility] 250 DO Work Phone: Start: 09-07-2022 ambulatory López Cortez Facility : Start: 08-08-2022 End: 08-08-2022 ambulatory DEANDRA BENDER Facility:[facility] Start: 08-08-2022 End: 08-08-2022 Patient encounter procedure Deandra Bender MD Work Phone: Ophthalmology Comment on above: Clonic hemifacial sp asm, right (Primary Dx) Start: 06-21-2022 Telephone encounter Deandra Bender MD Work Phone: Internal Medicine [place] Comment on above: Orders Start: 06-21-2022 End: 06-21-2022 ambulatory DEANDRA BENDER Facility:[facility] Start: 06-21-2022 End: 06-21-2022 Patient encounter procedure Deandra Bender MD Work Phone: Ophthalmology Comment on above: Clonic hemifacial sp asm, right (Primary Dx); Paralytic strabismus; Jada's syndrome Start: 05-01-2022 End: 05-01-2022 ambulatory MAU RANDLE Facility:[facility] Start: 05-01-2022 End: 05-01-2022 Patient encounter procedure Mau Loan Randle OD Work Phone: Ophthalmology Comment on above: Eyelid myokymia (Velma maren Dx); Dry eye syndrome of both eyes; Hyperopia of both eyes with astigmatism and presbyopia Start: 09-05-2021 Office outpatient vi sit 25 minutes Sera Flower Work Phone: [facility] 250 DO Work Phone: Procedures Date Procedure [...] c innervated facial nrv unil Evelia Huffman APRN.PHYSICIAN CODING SPECIALIST Work Phone: Start: 07-28-2019 Colonoscopy Hosea andrse DO Work Phone: Colonoscope, device (physical object) [...] 07-27-2029 Screening for malignant neoplasm of colon [facility] Start: 09-13-2028 Lipid panel Lipid Panel [facility] Start: 08-11-2027 DTaP/Tdap/Td Vaccines (2 - Td or Tdap) DTaP/Tdap/Td Vaccines (2 - Td or Tdap) [facility] Start: 03-30-2025 End: 03-30-2025 Patient encounter procedure 03/30/2025 9:15 AM EST Office Visit [facility] [address] [place] [phone] Sera Flower MD [address] [place] [address] [facility] Start: 03-23-2025 End: 09-19-2025 CBC W Auto Differential panel - Blood CBC and differential Lab Routine Essential hypertension (CMS/HCC) Expected: 03/23/2025 (Approximate), Expires: 09/19/2025 [facility] Work Phone: Comment on above: Expected: 03/23/2025 (Approximate), Expi res: 09/19/2025 Start: 03-23-2025 End: 09-19-2025 Comprehensive metabolic 2000 panel - Serum or Plasma Comprehensive metabolic panel Lab Routine Essential hypertension (CMS/HCC) Expected: 03/23/2025 (Approximate), Expires: 09/19/2025 [facility] Comment on above: Expected: 03/23/2025 (Approximate), Expi res: 09/19/2025 Start: 03-23-2025 End: 09-19-2025 Hemoglobin a1c with eag Hemoglobin a1c with eag Lab Routine Prediabetes Expected: 03/23/2025 (Approximate), Expires: 09/19/2025 [facility] Comment on above: Expected: 03/23/2025 (Approximate), Expi res: 09/19/2025 Start: 03-23-2025 End: 09-19-2025 Lipid 1996 panel - Serum or Plasma Lipid panel Lab Routine Pure hypercholesterolemia (CMS/HCC) Expected: 03/23/2025 (Approximate), Expires: 09/19/2025 [facility] Comment on above: Expected: 03/23/2025 (Approximate), Expi res: 09/19/2025 Start: 03-23-2025 End: 09-19-2025 Microalbumin/Creatinine panel in random Urine Microalbumin / creatinine urine ratio Lab Routine Essential hypertension (CMS/HCC) Expected: 03/23/2025 (Approximate), Expires: 09/19/2025 [facility] Comment on above: Expected: 03/23/2025 (Approximate), Expi res: 09/19/2025 Start: 03-23-2025 End: 09-19-2025 Urinalysis complete panel - Urine Urinalysis with microscopic Lab Routine Essential hypertension (CMS/HCC) Expected: 03/23/2025 (Approximate), Expires: 09/19/2025 [facility] Comment on above: Expected: 03/23/2025 (Approximate), Expi res: 09/19/2025 Start: 01-26-2025 Influenza vaccination Influenza Vaccine (Season Ended) [facility] Start: 01-06-2025 End: 01-06-2025 Patient encounter procedure 01/06/2025 10:20 AM EDT Office Visit [facility] [address] [place] [address] Rene Cortez MD [address] [facility] [place] [address] [facility] Start: 12-15-2024 End: 12-15-2024 Patient encounter procedure 12/15/2024 1:50 PM EDT Office Visit [facility] [address] [place] [address] Rene Cortez MD [address] [facility] [place] [address] [facility] Start: 11-24-2024 End: 10-24-2025 ECG 12 Lead ECG 12 Lead ECG Routine Ischemic cardiomyopathy Expected: 11/24/2024 (Approximate), Expires: 10/24/2025 [facility] Work Phone: Comment on above: Expected: 11/24/2024 (Approximate), Expi res: 10/24/2025 Start: 11-24-2024 End: 10-24-2026 US Heart Transthoracic Transthoracic Echo Limited Echocardiography Routine Ischemic cardiomyopathy Expected: 11/24/2024 (Approximate), Expires: 10/24/2026 [facility] Service Area Work Phone: Comment on above: Expected: 11/24/2024 (Approximate), Expi res: 10/24/2026 Start: 10-31-2024 End: 10-24-2025 Basic metabolic 2000 panel - Serum or Plasma Basic Metabolic Panel Lab Routine Ischemic cardiomyopathy Expected: 10/31/2024 (Approximate), Expires: 10/24/2025 [facility] Work Phone: Comment on above: Expected: 10/31/2024 (Approximate), Expi res: 10/24/2025 Start: 10-18-2024 [facility] Start: 10-16-2024 Referral to director of therapy services [facility] Start: 10-16-2024 Hospital admission [facility] Start: 10-16-2024 [facility] Start: 10-16-2024 Fluoroscopy of Left Heart using Low Osmolar Contrast Fluoroscopy of Left Heart using Low Osmolar Contrast [facility] Start: 10-16-2024 Fluoroscopy of Multiple Coronary Arteries using Low Osmolar Contrast Fluoroscopy of Multiple Coronary Arteries using Low Osmolar Contrast [facility] Start: 10-16-2024 Measurement of Cardiac Sampling and Pressure, Left Heart, Percutaneous Approach Measurement of Cardiac Sampling and Pressure, Left Heart, Percutaneous Approach [facility] Start: 09-24-2024 End: 12-24-2024 Basic metabolic 1998 panel - Serum or Plasma Basic metabolic panel Lab Routine Chronic systolic (congestive) heart failure Expected: 09/24/2024 (Approximate), Expires: 12/24/2024 [facility] Comment on above: Expected: 09/24/2024 (Approximate), Expi res: 12/24/2024 Start: 09-24-2024 End: 09-24-2024 Patient encounter procedure 09/24/2024 1:30 PM EDT Office Visit [facility] [address] [place] [phone] Sally Ba NP [address] [place] [address] [facility] Start: 09-19-2024 Medicare Annual Wellness (AWV) Medicare Annual Wellness (AWV) [facility] Start: 07-17-2024 End: 07-17-2024 Patient encounter procedure 07/17/2024 10:35 AM EST Office Visit [facility] [address] [place] [phone] Marybeth Long MD [address] [place] [address] Skin lesion of back; Sebaceous cyst [facility] Comment on above: Skin lesion of back; Sebaceous cyst Start: 05-15-2024 End: 05-15-2024 Patient encounter procedure 05/15/2024 9:10 AM EST Office Visit [facility] [address] [facility] [address] [place] [phone] Rene Cortez MD [address] [place] [address] [facility] Start: 04-25-2024 End: 02-26-2025 XR Chest 2 Views XR chest 2 views Imaging Routine Pneumonia of right middle lobe due to infectious organism Expected: 04/25/2024, Expires: 02/26/2025 [facility] Work Phone: Comment on above: Expected: 04/25/2024, Expires: Start: 03-26-2024 End: 03-26-2024 Patient encounter procedure 03/26/2024 1:00 PM EDT Office Visit [facility] [address] [place] [address] Sera Flower MD [address] [place] [address] [facility] Start: 03-20-2024 Echocardiography Echocardiogram [facility] Start: 02-27-2024 End: 02-27-2024 Patient encounter procedure 02/27/2024 10:45 AM EDT Office Visit [facility] [address] [place] [phone] Sally Ba NP [address] [place] [address] [facility] Start: 01-27-2024 COVID-19 Vaccine ( season) COVID-19 Vaccine () [facility] Start: 01-27-2024 Influenza vaccination [facility] Start: 10-18-2023 End: 10-18-2023 Patient encounter procedure 10/18/2023 9:30 AM EDT Office Visit [facility] [address] [place] [address] Rene Cortez MD [address] [place] [address] [facility] Start: 09-20-2023 End: 09-20-2023 Patient encounter procedure 09/20/2023 1:00 PM EDT Office Visit [facility] [address] [place] [phone] Sera Flower MD [address] [place] [address] [facility] Start: 03-23-2023 End: 03-23-2024 Alanine aminotransferase [Enzymatic activity/volume] in Serum or Plasma by With P-5'-P Alanine Aminotransferase Lab Routine Coronary artery disease involving houlton coronary artery of houlton heart without angina pectoris Essential hypertension Mixed hyperlipidemia Ischemic cardiomyopathy Status post coronary artery stent placement Class 2 obesity with body mass index (BMI) of 35.0 to 35.9 in adult, unspecified obesity type, unspecified whether serious comorbidity present Expected: 03/23/2023 (Approximate), Expires: 03/23/2024 [facility] Work Phone: Comment on above: Expected: 03/23/2023 (Approximate), Expi res: 03/23/2024 Start: 03-23-2023 End: 03-23-2024 Aspartate aminotransferase [Enzymatic activity/volume] in Serum or Plasma by With P-5'-P Aspartate Aminotransferase Lab Routine Coronary artery disease involving houlton coronary artery of houlton heart without angina pectoris Essential hypertension Mixed hyperlipidemia Ischemic cardiomyopathy Status post coronary artery stent placement Class 2 obesity with body mass index (BMI) of 35.0 to 35.9 in adult, unspecified obesity type, unspecified whether serious comorbidity present Expected: 03/23/2023 (Approximate), Expires: 03/23/2024 [facility] Work Phone: Comment on above: Expected: 03/23/2023 (Approximate), Expi res: 03/23/2024 Start: 03-23-2023 End: 03-23-2024 Basic metabolic 2000 panel - Serum or Plasma Basic Metabolic Panel Lab Routine Coronary artery disease involving houlton coronary artery of houlton heart without angina pectoris Essential hypertension Mixed hyperlipidemia Ischemic cardiomyopathy Status post coronary artery stent placement Class 2 obesity with body mass index (BMI) of 35.0 to 35.9 in adult, unspecified obesity type, unspecified whether serious comorbidity present Expected: 03/23/2023 (Approximate), Expires: 03/23/2024 [facility] Work Phone: Comment on above: Expected: 03/23/2023 (Approximate), Expi res: 03/23/2024 Start: 03-23-2023 End: 03-23-2024 CBC panel - Blood by Automated count CBC Lab Routine Coronary artery disease involving houlton coronary artery of houlton heart without angina pectoris Essential hypertension Mixed hyperlipidemia Ischemic cardiomyopathy Status post coronary artery stent placement Class 2 obesity with body mass index (BMI) of 35.0 to 35.9 in adult, unspecified obesity type, unspecified whether serious comorbidity present Expected: 03/23/2023 (Approximate), Expires: 03/23/2024 [facility] Service Area Work Phone: Comment on above: Expected: 03/23/2023 (Approximate), Expi res: 03/23/2024 Start: 03-23-2023 End: 03-23-2024 Lipid 1996 panel - Serum or Plasma Lipid Panel Lab Routine Coronary artery disease involving houlton coronary artery of houlton heart without angina pectoris Essential hypertension Mixed hyperlipidemia Ischemic cardiomyopathy Status post coronary artery stent placement Class 2 obesity with body mass index (BMI) of 35.0 to 35.9 in adult, unspecified obesity type, unspecified whether serious comorbidity present Expected: 03/23/2023 (Approximate), Expires: 03/23/2024 [facility] Work Phone: Comment on above: Expected: 03/23/2023 (Approximate), Expi res: 03/23/2024 Start: 03-15-2023 FUV, Provider: Rene Cortez, Status: Pen, Time: 9:20 AM FUV, Provider: Rene Cortez, Status: Pen, Time: 9:20 AM [facility] 250 DO Work Phone: Start: 01-26-2023 COVID-19 Vaccine ( season) COVID-19 Vaccine ( season) [facility] Start: 01-26-2023 Influenza vaccination [facility] Start: 09-07-2022 FUV, Provider: Rene Cortez, Status: Pen, Time: 8:30 AM FUV, Provider: Rene Cortez, Status: Pen, Time: 8:30 AM [facility] 250 DO Work Phone: Start: 08-02-2022 Medicare Annual Wellness Visit Medicare Annual Wellness Visit (AWV) [facility] Start: 05-28-2022 ADVANCE DIRECTIVE DISCUSSION ADVANCE DIRECTIVE DISCUSSION [facility] Start: 05-28-2022 DEPRESSION ASSESSMENT DEPRESSION ASSESSMENT [facility] Start: 01-26-2022 Influenza vaccination INFLUENZA (#1) [facility] Start: 05-28-2021 ADVANCE DIRECTIVE DISCUSSION ADVANCE DIRECTIVE DISCUSSION [facility] Start: 05-28-2021 DEPRESSION ASSESSMENT DEPRESSION ASSESSMENT [facility] Start: 2018 Abdominal aortic aneurysm screening Abdominal Aortic Aneurysm (AAA) Screening [facility] Start: 2018 PNEUMOCOCCAL: 65+ (1 - PCV) PNEUMOCOCCAL: 65+ (1 - PCV) [facility] Start: 02-15-2017 Zoster Vaccines (2 of 3) Zoster Vaccines (2 of 3) [facility] Start: 2013 RSV High Risk: (Elderly (60+) or Population) (1 - Risk 60-74 years 1-dose series) RSV High Risk: (Elderly (60+) or Population) (1 - Risk 60-74 years 1-dose series) [facility] Start: 2013 RSV patients and/or patients aged 60+ years (1 - 1-dose 60+ series) RSV patients and/or patients aged 60+ years (1 - 1-dose 60+ series) [facility] Start: 2003 SHINGRIX VACCINE (1 of 2) SHINGRIX VACCINE (1 of 2) [facility] Start: 1998 COLOGUARD (FIT-DNA) COLOGUARD (FIT-DNA) [facility] Start: 1998 Colonoscopy COLONOSCOPY [facility] Start: 1998 COLORECTAL CANCER SCREENING COLORECTAL CANCER SCREENING [facility] Start: [address] COLONOGRAPHY [facility] Start: 1998 DIABETES SCREEN DIABETES SCREEN [facility] Start: 1998 FECAL OCCULT BLOOD FECAL OCCULT BLOOD [facility] Start: 1998 SIGMOIDOSCOPY SIGMOIDOSCOPY [facility] Start: 01-02-1988 LIPID SCREEN LIPID SCREEN [facility] Start: 01-02-1972 Urine microalbumin profile DTAP,TDAP,TD (1 - Tdap) [facility] Start: 1971 Diabetes mellitus screening Diabetes Screening [facility] Start: 1971 HEPATITIS C SCREENING HEPATITIS C SCREENING [facility] Start: 1971 Hepatitis C screening Hepatitis C Screening [facility] Start: 1955 COVID-19 VACCINE (#1) COVID-19 VACCINE (#1) [facility] Start: 1953 Creatinine measurement Creatinine Level [facility] Start: 1955 Lipid panel Lipid Panel [facility] Start: 1955 Medicare Annual Wellness Visit Medicare Annual Wellness Visit (AWV) [facility] Start: 1955 Potassium measurement Potassium Level [facility] Start: 1955 Screening for malignant neoplasm of colon [facility] Basic metabolic 1998 panel - Serum or Plasma Basic metabolic panel Lab Routine Hyponatremia Essential hypertension (CMS/HCC) Ordered: 02/27/2024 [facility] Comment on above: Ordered: 02/27/2024 BLOOD CULTURE 1 BLOOD CULTURE 1 Lab Routine 02/15/2024 4:07 PM EDT [facility] BLOOD CULTURE 1 BLOOD CULTURE 1 Lab Routine 02/17/2024 10:40 AM EDT [facility] BLOOD CULTURE 2 BLOOD CULTURE 2 Lab Routine 02/15/2024 4:14 PM EDT [facility] BLOOD CULTURE 2 BLOOD CULTURE 2 Lab Routine 02/17/2024 11:00 AM EDT [facility] LOWER RESPIRATORY CULTURE LOWER RESPIRATORY CULTURE Lab Routine 02/18/2024 7:25 AM EDT [facility] Work Phone: End: 07-21-2023 Mri brain brain stem w/o w/contrast material MRI BRAIN WO/W IVCON Radiology Routine Paralytic strabismus 1 Occurrences starting 06/21/2022 until 07/21/2023 [facility] Work Phone: Comment on above: 1 Occurrences starting 06/21/2022 until 07/21/2023 End: 07-21-2023 Mri orbit face & neck w/o & w/contrast matrl MRI SOFT TISSUE NECK WO/W IVCON Radiology Routine 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 until 07/21/2023 [facility] Work Phone: Comment on above: 1 Occurrences starting 06/21/2022 until 07/21/2023 Patient Education [facility] Work Phone: Patient referral [facility] Work Phone: PSA, total and free PSA, total a nd free Lab Routine Benign prostatic hyperplasia without urinary obstruction Ordered: 02/27/2024 [facility] Work Phone: Comment on above: Ordered: 02/27/2024 [facility] Immunizations Immunization Date Immunization Notes Care Provider Fa loraine 04-16-2019 Seasonal trivalent influenza vaccine, adjuvanted, preservative free Sera Barbara Ching Work Phone: [place] [address] DO Work Phone: 04-16-2019 influenza virus vacc ine, unspecified formulation Rene Cortez MD Work Phone: [facility] 03-28-2019 influenza virus vacc ine, unspecified formulation Sera Flower Work Phone: [place] [address] DO Work Phone: 08-16-2018 influenza virus vacc ine, unspecified formulation John EMILE [facility] 08-16-2018 influenza, injectabl e, quadrivalent, preservative free Kiya Richmond PHYSICAL THER-PHYSICIAN CODING SPECIALIST Work Phone: [facility] Work Phone: 08-16-2018 influenza, seasonal, injectable, preservative free Sera Barbara Ching Work Phone: [place] [address] DO Work Phone: 08-16-2018 pneumococcal conjuga te vaccine, 13 valent Sera Barbara Ching Work Phone: [place] [address] DO Work Phone: 05-28-2018 pneumococcal polysaccharide vaccine, 23 valent Sera Barbara Ching Work Phone: [place] [address] DO Work Phone: 08-10-2017 tetanus toxoid, redu daniel diphtheria toxoid, and acellular pertussis vaccine, adsorbed Sera Barbara Ching Work Phone: [place] [address] DO Work Phone: 05-15-2017 influenza, injectabl e, quadrivalent, preservative free Kiya Richmond PHYSICAL THER-PHYSICIAN CODING SPECIALIST Work Phone: [facility] Work Phone: 12-21-2016 zoster vaccine, live Sera Flower Work Phone: [facility] 250 DO Work Phone: 04-28-2016 influenza, seasonal, injectable, preservative free Kiya Richmond PHYSICAL THER-PHYSICIAN CODING SPECIALIST Work Phone: [facility] Work Phone: 03-05-2015 influenza, seasonal, injectable, preservative free Kiya Richmond PHYSICAL THER-PHYSICIAN CODING SPECIALIST Work Phone: [facility] Work Phone: 03-10-2014 influenza, seasonal, injectable, preservative free Kiya Richmond PHYSICAL THER-PHYSICIAN CODING SPECIALIST Work Phone: [facility] Work Phone: 03-24-2013 influenza virus vacc ine, unspecified formulation Kiya Richmond PHYSICAL THER-PHYSICIAN CODING SPECIALIST Work Phone: [facility] Work Phone: 09-30-2012 pneumococcal polysaccharide vaccine, 23 valent Sera Flower Work Phone: [facility] 250 DO Work Phone: 09-30-2012 pneumococcal vaccine , unspecified formulation Hosea Snyder DO Work Phone: [facility] 05-06-2012 influenza virus vacc ine, unspecified formulation Kiya Richmond PHYSICAL THER-PHYSICIAN CODING SPECIALIST Work Phone: [facility] Work Phone: 03-03-2011 influenza virus vacc ine, unspecified formulation Kiya Richmond PHYSICAL THER-PHYSICIAN CODING SPECIALIST Work Phone: [facility] Work Phone: 05-28-2010 influenza virus vacc ine, unspecified formulation Rene Cortez MD Work Phone: [facility] Work Phone: 03-31-2010 influenza virus vacc ine, unspecified formulation Kiya Richmond PHYSICAL THER-PHYSICIAN CODING SPECIALIST Work Phone: [facility] Work Phone: 03-28-2010 influenza, seasonal, injectable, preservative free Rene Cortez MD Work Phone: [facility] Work Phone: 2007 TD(adult) unspecifie d formulation; Translations: [Td(adult) unspecified formulation] Hosea Snyder DO Work Phone: [facility] 2007 tetanus toxoid, unspecified formulation Kiya Basilio PHYSICAL THER-PHYSICIAN CODING SPECIALIST Work Phone: [facility] Work Phone: influenza virus vacc ine, unspecified formulation Sera Flower Work Phone: [facility] 250 DO Work Phone: Comment on above: Mar 20102010 Payers Date Payer Category Payer [employer] others) [id number] 2024 [employer] ( [employer] others) [id number] 2024 Self-pay [id number] 2023 Private Health Insurance [id number] 2023 () [id number] [id number] 2022 [employer] ( and others) [id number]. 3.6786 71.315 2022 Medicare (Managed Care) 1.2. [id number] [id number] 2022 For Life (TFL) 1.2.8 [id number] [id number] 2022 [employer] ( [employer] others) [id number] 2022 Medicare [id number] 2021 [employer] ( and others) [id number] 2021 Unknown 2017 Medicare [id number]. 1.13.159.2.7.3.6786 71.315 2017 Medicare [id number] 1953 Unknown [id number] 2.16.840.1.997815.3.579.2.356 1953 Unknown [id number] 2.16.840.1.768776.3.579.2.356 1953 Unknown [id number] 2.16.840.1.312999.3.579.2.1068 1953 Unknown [id number] 2.16.840.1.571903.3.579.2.1068 1953 Unknown [id number] 2.16.840.1.854947.3.579.2.1259 1953 Unknown [id number] 2.16.840.1.633746.3.579.2.1259 1953 Unknown [id number] 2.16.840.1.378526.3.579.2.1259 1953 Unknown [id number] 2.16.840.1.605528.3.579.2.1259 1953 Unknown [id number] 2.16.840.1.008575.3.579.2.1259 1953 Unknown [id number] 2.16.840.1.845915.3.579.2.1259 1953 Unknown [id number] 2.16.840.1.154637.3.579.2.1259 1953 Unknown [id number] 2.16.840.1.925826.3.579.2.1244 1953 Unknown [id number] 2.16.840.1.136792.3.579.2.1244 1953 Unknown [id number] 2.16.840.1.665442.3.579.2.727 1953 Unknown [id number] 2.16.840.1.958851.3.579.2.727 1953 Unknown [id number] 2.16.840.1.865312.3.579.2.727 1953 Unknown [id number] 2.16.840.1.449178.3.579.2.727 1953 Unknown [id number] 2.16.840.1.094704.3.579.2.727 1953 Unknown [id number] 2.16.840.1.399511.3.579.2.727 1953 Unknown [id number] 2.16.840.1.201094.3.579.2.727 1953 Unknown [id number] 2.16.840.1.139048.3.579.2.727 1953 Unknown [id number] 2.16.840.1.506263.3.579.2.727 1953 Unknown [id number] 2.16.840.1.443252.3.579.2.727 1953 Unknown [id number] 2.16.840.1.931586.3.579.2.727 1953 Unknown [id number] 2.16.840.1.941732.3.579.2.727 Unknown [id number] 2.16.840.1.024488.3.579.2.531 Unknown [id number] 2.16.840.1.081749.3.579.2.531 Unknown [id number] 2.16.840.1.559598.3.579.2.531 Social History Date Type Detail Facility Start: 03-23-2023 End: 10-24-2024 No alcohol use No alcohol use [facility] Comment on above: 5 CUPS OF COFFEE ANICETO LY; QUIT IN 1984; Start: 05-01-2022 End: 06-14-2023 Tobacco smoking status [facility] Never smoked tobacco [facility] Start: 05-01-2022 End: 10-18-2023 Tobacco use and exposure Smokeless tobacco non-user [facility] Start: 05-01-2022 End: 11-14-2022 Alcohol intake Ex-drinker (finding) [facility] Start: 1955 Sex Assigned At Not on file [facility] Start: 10-15-2020 End: 12-02-2024 Tobacco smoking status [place] Ex-smoker (finding) [facility] Start: 1955 Sex Assigned At Male F [facility] End: 05-28-1992 History of tobacco use Current smoker [facility] Work Phone: End: 05-28-1992 History of tobacco use Cigarette Smoker [facility] Work Phone: Start: 03-23-2023 End: 10-24-2024 Alcohol intake Lifetime non-drinker (finding) [facility] Work Phone: Start: 03-23-2023 End: 10-24-2024 Tobacco use panel [facility] Start: 03-13-2023 End: 10-24-2024 Exposure to SARS-CoV-2 (event) Not sure [facility] Start: 03-14-2023 Alcohol Comment caffeine: coff ee 5-6 cups a day [facility] Start: 11-13-2022 Gender identity Identifies as male gender (finding) [facility] Tobacco smoking status Never [facility] Start: 10-18-2024 End: 11-01-2024 Sex Male (finding) [facility] Start: 10-17-2024 SDOH Follow up SDOH Follow up [facility] Work Phone: Sexual Orientation [facility] [place] Goals Date Patient Goal Desired Activity /State Functional Status Date Assessment Result Facility 10-18-2024 Functional status Patient at Baseline [facility] Work Phone: 09-24-2024 Patient Health Quest ionnaire 2 item (PHQ-2) [Reported] [facility] 08-08-2024 Functional Status N/A [facility] 06-23-2024 Functional Status N/A [facility] 04-28-2024 Functional Status N/A [facility] 04-16-2024 Functional Status N/A [facility] Mental Status Date Assessment Result Facility 10-18-2024 Cognitive function Cognitive Sta tus Patient at Baseline [facility] Work Phone: Clinical Notes 05-01-2022 to 12-09-2024 Kiya Richmond APRN-PHYSICIAN CODING SPECIALIST - 10/24/2024 10:00 AM EDTPatient Instructions Note Date & Type Note Facility 12-09-2024 Note [facility] Note Chief Complaint: Establish care [...] medical history of CHF (congestive heart failure) ([facility]), COPD (chronic obstructive pulmonary disease) ([facility]), Coronary artery disease, GERD (gastroesophageal reflux disease), [...] for this visit: Coronary artery disease involving houlton coronary artery of [place]oul[place] heart without angina pectoris (Primary) Comments: S/p PCI to LAD and mid/distal RCA 2009. Recent coronary angiogram September/2024 revealed patent the stent with totally occluded ramus and PLV branch of RCA Orders: - metoprolol succinate XL (Toprol-XL) 25 mg 24 hr tablet; Take 0.5 tablets (12.5 mg) by mouth once daily as directed. Do not crush or chew. (more content not included)... [facility] 12-02-2024 Hospital Discharge instructions Patient Education 12/02/2024 [...] urethra. Follow these instructions at home: Take tclp-dpf-aeoqpty and prescription medicines only as told by [...] provider. Document Revised: 11/30/2021 Document Reviewed: 11/30/2021 [employer] Patient Education 2023 [employer]. Follow Up Care 08/26/2024 08:43:50 With:EMILE SHELLEY, John Hauser, URL [facility] [place] [id number]- When: Unknown Comments:6 mos w/ PSA and PVR [facility] [place] 12-02-2024 Note Patient Education [...] Follow these instructions at home: ??? Take hmpt-fhc-mwtyhlw and prescription medicines only as told by [...] do not get (more content not included)... [facility] 10-24-2024 History of Present illness Narrative [...] September 2024 had a 7-day hospitalization at [facility] due to pneumonia, sepsis. Although I do not have a report, there is documentation that echo showed LVEF of 25% with global hypokinesis. Believe he was treated for acute decompensated heart failure. He was then transferred to [facility] and seen by Dr. Davis. A August 17, 2024 cardiac cath showed a patent LAD and diagonal stenting, ramus occluded, mid/distal RCA patent stent, PLV occluded. LVEF 20%. At time of discharge she was to be placed on Entresto, Aldactone, Farxiga and increased dose carvedilol, Lasix. reports that he was only home for approximately 4 hours and he returned back to [facility] as of breath, he was hospitalized [...] times daily omega-3 fatty acids-fish oil (One-Per-Day [place]-3) 684-1,200 mg capsule Take as directed omeprazole [...] & reported 25% with global hypokinesis at [facility] (no reports). Prior February 2023 TTE [...] day of office visit Kiya Richmond MSN, PHYSICAL THER-PHYSICIAN CODING SPECIALIST, PMHNP-[facility] [place], [place] Please excuse any errors in grammar or translation related to this dictation. Voice recognition software was utilized to prepare this document. documented in this encounter [facility] Work Phone: 10-24-2024 Instructions NABIL Garcia [...] of office visit documented in this encounter [facility] Work Phone: 10-18-2024 Progress note Note Date/Time October 18, 2024 1:53pm [facility] [address] [place] [address] Cardiology Progress Note Signed Patient: Demarcus Calderon MR#: [id number] : 1955 Acct:[id number] Age/Sex: 69 / M Adm Date: 5 Loc: 4 Room: [address] [place] [address] Type: ADM IN Attending Dr: Vincenzo Caraballo [...] Code(s): I25.10 - Atherosclerotic heart disease of houl[place] coronary artery without angina pectoris Plan 1. Result of heart cath noted and reviewed with patient 2. Gradually uptitrate guideline directed therapy for heart failure and consideration for outpatient AICD 3. Patient can be discharged home Documented By: Charito Rodriguez MD 10/18/24 1352 Signed By: <Electronically signed by MD Charito Rodriguez> 10/18/24 5125 [facility] Work Phone: 1(216) 898-846705-24-2025 [place] [id number] Cardiology Progress Note Signed Patient: Demarcus Calderon MR#: [id number] : 1955 Acct:[id number] Age/Sex: 69 / M Adm Date: 5 Loc: Room: [address] [place] [address] Type: ADM IN Attending Dr: Vincenzo Caraballo [...] Code(s): I25.10 - Atherosclerotic heart disease of [place] coronary artery without angina pectoris Plan 1. Result of heart cath noted and reviewed with patient 2. Gradually uptitrate guideline directed therapy for heart failure and consideration for outpatient AICD 3. Patient can be discharged home Documented By: Charito Rodriguez MD 10/18/24 1352 Signed By: 10/18/24 [facility]3 [facility]05-23-2025 Progress note Author Vincenzo Caraballo [facility] Note Date/Time October 17, 2024 3:24p m [facility] [address] [place] [address] Hospitalist Progress Note Signed Patient: Demarcus Calderon MR#: [id number] : 1955 Acct:[id number] Age/Sex: 69 / M Adm Date: 5 Loc: Room: [id number] Type: ADM IN Attending Dr: Vincenzo Caraballo DO Copies to: ~ Date of Service: 10/17/2024 Subjective Subjective Narrative: Seen and evaluated this morning, is present at bedside. Was initially reviewing his hospitalization from [facility] when unfortunately I was called out of the room by an insurance [employer] for a peer to peer. During this [...] spray 10/17/24 09:00 10/17/24 10:26 Fluticasone Propionate Schriever 120 Schriever/16 Gm Bottle INTRANASAL 10/17/25 08:59 Not Given [...] ? Continue diuresis which was started at [facility] ? Lasix 40 m IV push twice daily ? Daily weights ? Strict I's and O's ? Patient was transferred here from [facility] for cardiology valuation ? Echocardiogram at [facility] shows ejection fraction of 25% ? [...] has received 7 days of antibiotics at [facility], - Will defer antibiotics for now Acute hypoxic respiratory failure- likely due to CHF - Continue oxygen as needed, keep Spo2 > 90% Chronic conditions COPD HTN CAD HLD DVT PPx?SCDs Diet order?heart healthy, n.p.o. midnight CODE STATUS?full code Documented By: Vincenzo Caraballo DO 10/17/24 1521 Signed By: <Electronically signed by Vincenzo Caraballo DO> 10/17/24 1524 [facility] Work Phone: 1(183) 463-678905-23-2025 [place] [address] Cardiac Catheterization Note Signed Patient: Demarcus Calderon MR#: [id number] : 1955 Acct:[id number] Age/Sex: 69 / M Adm Date: 5 Loc: Room: [address] [place] [address] Type: ADM IN Attending Dr: Vincenzo Caraballo DO Copies to: MD Vincenzo Sam DO W Scott Sheldon, DO~ Cardiac Catheterization (Left) DATE/PROVIDER 10/17/2024 Keila Davis DO INDICATION 1. Acute decompensated left-ventricular systolic heart failure 2. Recent episode of acute respiratory failure/pneumonia 3. Ischemic cardiomyopathy with prior history of MS, two-vessel revascularizations of LAD/diagonal and distal RCA [...] with a single arterial puncture technique, a5 Setswana slender sheath was introduced to the right radial artery over guidewirewithout any complications. Next, preformed 5 Setswana JL 3.5 and JR4 diagnostic catheters were [...] PDA branch; PLV branch is occluded with qxxl-pr-brnad collaterals PDA-RT -% Stenosis: 0 PLV-RT -% [...] DO 10/17/24 1550 Signed By: 10/17/24 1558 [facility]05-23-2025 Consult note Author Keila Davis [facility] Note Date/Time October 17, 2024 1:50p m [facility] [address] [place] [address] Cardiology Consult Note Signed Patient: Demarcus Calderon MR#: [id number] : 1955 Acct:[id number] Age/Sex: 69 / M Adm Date: 5 Loc: Room: [address] [place] [address] Type: ADM IN Attending Dr: Vincenzo Caraballo DO Copies to: MD Vincenzo Sam DO W Scott Sheldon, DO~ Cardiology HPI History of Present Illness Consult Date: 10/17/24 Reason for Consult: Acute HFrEF, ischemic cardiomyopathy, ASHD, history of two-vessel PCI's, pneumonia HPI: Mr. Calderon is a 69 year old male seen in cardiology consultation at request of Dr. Pate at [facility] and hospitalist at [facility] and patient wastransferred for further cardiovascular evaluation and management. He was hospitalized for the past 7 days at [facility] with pneumonia additionally heartfailure, found to have [...] medical/interventional therapies going forward; patient agrees toproceed [facility] Medical History (Updated 10/17/24 @ 13:50 by Keila Davis DO) CHF (congestive heart failure) COVID Sinusitis Emphysema lung Heart attack Acid reflux Elevated cholesterol BPH (benign prostatic hyperplasia) Hypertension COPD (chronic obstructive pulmonary disease) Surgical History (Updated 10/17/24 @ 13:50 by Keila Davis DO) H/O shoulder surgery History of heart artery stent x5 Family History (Updated 10/16/24 @ 23:14 by Tootei Richmond APRN) Mother Alzheimer disease Diabetes Father [...] x10E3/uL Lymph # (Auto) 2.4 (1.00-4.8) x10E3/uL [place] # (Auto) 1.1 H (0.0-0.8) x10E3/uL Eos [...] Code(s): I25.10 - Atherosclerotic heart disease of [place] coronary artery without angina pectoris Plan New onset severe ischemic cardiomyopathy, proceed with left heart catheterization Documented By: Keila Davis DO 10/17/24 1343 Signed By: <Electronically signed by Keila Davis DO> 10/17/24 1350 [facility] Work Phone: 1(509) 173-872005-23-2025 [place] [address] Hospitalist Progress Note Signed Patient: Demarcus Calderon MR#: [id number] : 1955 Acct:[id number] Age/Sex: 69 / M Adm Date: 5 Loc: Room: [address] [place] [address] Type: ADM IN Attending Dr: Vincenzo Caraballo DO Copies to: ~ Date of Service: 10/17/2024 Subjective Subjective Narrative: Seen and evaluated this morning, is present at bedside. Was initially reviewing his hospitalization from [facility] when unfortunately I was called out of the room by an insurance [employer] for a peer to peer. During this [...] spray 10/17/24 09:00 10/17/24 10:26 Fluticasone Propionate Schriever 120 Schriever/16 Gm Bottle INTRANASAL 10/17/25 08:59 Not Given [...] Syringe IV-PUSH 10/16/25 21:59 Not Given QSHIFT [facility] Sodium Chloride 0 ml 10/17/24 10:32 Sodium Chloride 0.9 % 10 Ml Syringe IV-PUSH 10/17/25 10:31 PRN PRN Flush Tamsulosin HCl 0.8 mg 10/17/24 22:00 Tamsulosin 0.4 Mg Cap.Er.24h PO 10/17/25 21:59 QHS KARIN A&P - Hospitalist Assessment/Plan (1) Acute on chronic systolic (congestive) heart failure: Plan: ? Continue diuresis which was started at [facility] ? Lasix 40 m IV push twice daily ? Daily weights ? Strict I's and O's ? Patient was transferred here from [facility] for cardiology valuation ? Echocardiogram at [facility] shows ejection fraction of 25% ? [...] has received 7 days of antibiotics at [facility], - Will defer antibiotics for now Acute hypoxic respiratory failure- likely due to CHF - Continue oxygen as needed, keep Spo2 > 90% Chronic conditions COPD HTN CAD HLD DVT PPx?SCDs Diet order?heart healthy, n.p.o. midnight CODE STATUS?full code Documented By: Vincenzo Caraballo DO 10/17/24 1521 Signed By: 10/17/24 1524 [facility]05-23-2025 [place] [address] Cardiology Consult Note Signed Patient: Demarcus Calderon MR#: [id number] : 1955 Acct:[id number] Age/Sex: 69 / M Adm Date: 5 Loc: Room: [address] [place] [address] Type: ADM IN Attending Dr: Vincenzo Caraballo DO Copies to: MD Vincenzo Sam DO W Scott Sheldon, DO~ Cardiology HPI History of Present Illness Consult Date: 10/17/24 Reason for Consult: Acute HFrEF, ischemic cardiomyopathy, ASHD, history of two-vessel PCI's, pneumonia HPI: Mr. Calderon is a 69 year old male seen in cardiology consultation at request of Dr. Pate at [facility] and hospitalist at [facility] and patient wastransferred for further cardiovascular evaluation and management. He was hospitalized for the past 7 days at [facility] with pneumonia additionally heartfailure, found to have [...] medical/interventional therapies going forward; patient agrees toproceed [facility] Medical History (Updated 10/17/24 @ 13:50 by [...] x10E3/uL Lymph # (Auto) 2.4 (1.00-4.8) x10E3/uL [place] # (Auto) 1.1 H (0.0-0.8) x10E3/uL Eos [...] Code(s): I25.10 - Atherosclerotic heart disease of [place] coronary artery without angina pectoris Plan New onset severe ischemic cardiomyopathy, proceed with left heart catheterization Documented By: Keila Davis DO 10/17/24 1343 Signed By: 10/17/24 1350 [facility]05-23-2025 History and physical note Author Tootie Richmond [facility] Note Date/Time October 17, 2024 2:47a m [facility] [address] [place] [address] Hospitalist H&P Signed with Addenda Patient: Demarcus Calderon MR#: [id number] : 1955 Acct:[id number] Age/Sex: 69 / M Adm Date: 5 Loc: Room: [address] [place] [address] Type: ADM IN Attending Dr: Ricardo Aguero [...] cardiac stents that was transferred here to [facility] for exacerbation of congestive heart failure. He states he has been at [facility] since the for shortness of breath [...] fever or chills. He states that his director of therapy services is Dr. Jerez. He reports he quit smoking in the , denies alcohol or illicit drug use. [facility] chart review?patient was admitted to [facility] on 10/09/2024 for exacerbation of COPD, [...] unless noted in the HPI or below. [facility] Medical History (Updated 10/16/24 @ 23:13 by Tootie Richmond, PHYSICAL THER) CHF (congestive heart failure) COVID Sinusitis Emphysema [...] has received 7 days of antibiotics at [facility], - Will defer antibiotics for now Acute [...] By: <Electronically signed by WILLIAN Richmond> 10/16/242331 [facility] Work Phone: 1(561) 305-295405-23-2025 [place] [address] Hospitalist H&P Signed with Addenda Patient: Demarcus Calderon MR#: [id number] : 1955 Acct:[id number] Age/Sex: 69 / M Adm Date: 5 Loc: Room: [address] [place] [address] Type: ADM IN Attending Dr: Ricardo Aguero [...] cardiac stents that was transferred here to [facility] for exacerbation of congestive heart failure. He states he has been at [facility] since the for shortness of breath [...] fever or chills. He states that his director of therapy services is Dr. Jerez. He reports he quit smoking in the 90s, denies alcohol or illicit drug use. [facility] chart review?patient was admitted to [facility] on 10/09/2024 for exacerbation of COPD, [...] unless noted in the HPI or below. [facility] Medical History (Updated 10/16/24 @ 23:13 by [...] has received 7 days of antibiotics at [facility], - Will defer antibiotics for now Acute [...] Richmond, WILLIAN 10/16/242204 Signed By: 10/16/24 2332 [facility]05-22-2025 Evaluation note* Diagnosis Onset Date Resolution Status Admit Date Acute hypoxic respiratory failure ac [place] October 16, 2024 9:38pm Acute on chronic systolic (congestive) heart failure acute September 262024 9:38pm ASHD (arteriosclerotic heart disease) acute October 16, 2024 9 :38pm Community acquired pneumonia acute October 16, 2024 9:38pm History of heart artery stent acute October 16, 2024 9:38pm [facility] Work Phone: 1(701) 913-737005-22-2025 Evaluation note* Diagnosis Onset Date Resolution Status Admit Date Acute hypoxic respiratory failure resolved October 16, 2024 9 :38pm Acute on chronic systolic (congestive) heart failure resolved September 262024 9:38pm Community acquired pneumonia resolve d October 16, 2024 9:38pm ASHD (arteriosclerotic heart disease) inactive October 16, 2024 9 :38pm History of heart artery stent inacti ve October 16, 2024 9:38pm [facility] Work Phone: 1(294) 222-858404-30-2025 History of Present illness Narrative* Sally Ba, ROHITH - 09/24/2024 1:30 PM EDT Images from the original note were not included. Demarcus Calderon is a 69 y.o. male presents with chief complaint of 6 Month Follow Up of Chronic Conditions, Medicare Annual Wellness Visit Subsequent, and ER Follow-up ([facility] 09/22/2024 for CHF. He was advised [...] under the care of Dr. Morgan, a director of therapy services, and has resumed his diuretic regimen. - [...] incident. Prediabetes Monitoring [facility] work at the [facility] is scheduled for 10/10/2024. He is not currently on any antidiabetic medications and is monitored for prediabetes, with an A1c of 6.3 in 2023. - Timing: Blood work scheduled for 10/10/2024 for the [facility]. - Severity: A1c of 6.3 in 2023. PSA Levels Monitoring Dr. Baptiste, a urologist, is monitoring his prostate-specific antigen (PSA) levels, which improved from 6.0 to 2.3 between last year and 03/2024. - Timing: PSA levels improved between last year and 03/2024. - Severity: PSA levels improved from 6.0 to 2.3. Colonoscopy Referral A referral for a colonoscopy at [facility] has been declined, opting to defer the procedure for a year. Medical History and Vaccinations There is no history of chickenpox, but he has had mumps and measles. The shingles vaccine was administered in 2017. Living Will and Power of Ply Bander A living will and power of generator operator straight bevel gear are in place. 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 export agent Cognitive Screening Self Assessment: No overt cognitive deficiency is apparent by direct observation Three Word Registration: Banana, [place], Chair Clock Drawing: Normal Clock - 2 Three Word Recall: 2/3 words correct - 2 Total Score (0-5 Points): 4 Pain Assessment Pain Score: 0 - No pain HISTORIES: PAST MEDICAL HISTORY: Past Medical History: Diagnosis Date Asthma BPH (benign prostatic hyperplasia) CAD (coronary artery disease) ([facility]) COPD (chronic obstructive pulmonary disease) ([facility]) Emphysema, unspecified Hypercholesterolemia ([facility]) Hypertensive heart disease SURGICAL HISTORY: Past Surgical [...] 50 MCG/ACT nasal spray 2 sprays, Daily Nggdmxwfbvr-Koeeseaft-Xuiulw (Trelegy Ellipta) 100-62.5-25 MCG/ACT aerosol powder 1 [...] PLAN: Assessment & Plan 1. Essential hypertension ([facility]/HCC) BP stable. Continue current regimen. Call if numbers are running low or high. - CBC and differential; Future - Comprehensive metabolic panel; Future - Urinalysis with microscopic; Future - Microalbumin / creatinine urine ratio; Future - CBC and differential - Comprehensive metabolic panel - Urinalysis with microscopic - Microalbumin / creatinine urine ratio 2. Pure hypercholesterolemia ([facility]/HCC) He is taking Rosuvastatin. Continue current regimen. [...] with eag 5. Coronary artery disease involving houlton coronary artery of houlton heart without angina pectoris([facility]) Doing well. Denies any anginal symptoms. Continue [...] Morbid (severe) obesity due to excess calories ([facility]) As above. 11. Medicare annual wellness visit, [...] for the above issues. documented in this encounterCitizens Memorial [id number] NotePatient Education Urology Benign Prostatic Hyperplasia Benign [...] Follow these instructions at home: ??? Take yptm-zsn-tpgsqsp and prescription medicines only as told by [...] symptoms do not get (more content not included)...[facility]03-24-2025 NotePatient Education Urology Benign Prostatic Hyperplasia [...] Follow these instructions at home: ??? Take xclo-bbr-jrvstmn and prescription medicines only as told by [...] symptoms do not get (more content not included)...[facility]03-14-2025 Hospital Discharge instructions Patient Education 08/08/2024 [...] Up Care 06/23/2024 15:57:15 With:John BAPTISTE Address: [facility] [employer] [place] [address]- Business (1) When: Unknown Comments:Push the fluids to keep the urine clear. Stay on the Flomax for now.Some discharge instructions have been provided. If the bleeding gets severe, or the catheter is clogging from blood clots, you needto go to the ER for irrigation.Will make a one week appt. to remove the catheter. [facility] 03-14-2025 NotePatient Education Urolift ??? Some [...] surgeon, seek help from a hospital emergency room.[facility]03-14-2025 Evaluation + Plan noteExtracted from: Title:EU UroLift 8 Implants- FT Author:John BAPTISTE MD Date:08/08/24 Patient: DEMARCUS CALDERON Age: 69 years Sex: Male : 1955 Associated Diagnoses: None Author: John BAPTISTE MD Procedure Operative Information Details: Date/ Time: 08/08/2024 13:41:00. Pre-Op Dx: Acute urinary retention (OUG10-[place] R33.8, Working, Medical), BPH with obstruction/lower urinary tract symptoms (FNC35-[place] N40.1, Working, Medical). Post-Op Dx: Same. Anesthesia [...] procedure (10 mg diazepam, 5/325 mg of Hague), Local Anesthesia (60cc 2% Xylocaine liquid inserted [...] PAT Appointment Date:08/15/2024 08:00:00 AM Scheduled Provider: Location:[facility] KATTY Tejada Appointment Type:URO Nurse Visit [facility] 02-20-2025 History of Present illness Narrative* [...] Erythema intertrigo Pubic, Right Foot - Anterior [place] moist plaques. Flaring today Discussed that intertrigo is a chronic condition that can be controlled but not cured. Recommend keeping areas as dry as possible to avoid flares. Start Nystatin powder every day. Start HC 2.5% creamevery day prn itching, hold if not itchy. Notify office if worsening despite treatment. nystatin (Mycostatin) 235041 UNIT/GM powder - Pubic Apply to the affected area on groin area, once daily, 30 day supply hydrocortisone 2.5 % cream - Pubic Apply thin layer to affected areas on groin up once or twice daily prn itching. Hold if not itchy. Next Visit: 3-4 weeks if not improving documented in this encounterCitizens Memorial [id number] History of Present illness Narrative* Sally Loan Ba, HOP STRAINER - 07/02/2024 9:15 AM EST Images from the original note were not included. Demarcus Calderon is a 69 y.o. male presents with chief complaint of ER Follow-up ([facility] 06/29/2024 dx: COPD exacerbation 2ndry viral infection. [...] Flowsheet Row Patient Outreach from 06/30/2024 in [facility] with Orquidea Shah RN Hospital Information ED, Hospital or Longterm Facility Discharge? ED Patient has been contacted within 1 week of being seen in the ED Yes Diagnosis COPD exacerbation secondary to viral infection Discharge Date 06/29/24 Discharged To: Home Setting Discharge Hospital -- [[facility]] Engagement Admission Date 06/29/24 Medications Discharge [...] Wrap Up Additional Comments Patient present to [facility] with a productive cough and runny nose X2 weeks. Pt given a breathing treatnment in ER. Pt dx: possible COPD exacerbation secondary to viralinfection. Pt discharged home on Z- santos, Prednisone, and Mucinex. HISTORIES: PAST MEDICAL HISTORY: Past Medical History: Diagnosis Date Asthma ([facility]) BPH (benign prostatic hyperplasia) CAD (coronary artery disease) ([facility]) COPD (chronic obstructive pulmonary disease) ([facility]) Emphysema, unspecified ([facility]) Hypercholesterolemia ([facility]) Hypertensive heart disease ([facility]) SURGICAL HISTORY: Past Surgical History: Procedure Laterality [...] 50 MCG/ACT nasal spray 2 sprays, Daily Xgregakvgql-Kfdgiyibu-Ijmduw (Trelegy Ellipta) 100-62.5-25 MCG/ACT aerosol powder 1 [...] a topical cream will be sent to [facility] pharmacy. Follow up if not [...] referral to Dermatology; Future documented in this encounterCitizens Memorial HealthcareMdekivmeml89-50-7029 Hospital Discharge instructions Patient Education 06/23/2024 15:40:46 [...] including vitamins, herbs, eye drops, creams, and fffo-web-vrgwkof medicines. Any problems you or family members [...] provider tells you to take them. Taking zsqu-mxk-ixjctut medicines, vitamins, herbs, and supplements. Surgery safety [...] provider. Document Revised: 12/09/2021 Document Reviewed: 12/09/2021 [employer] Patient Education 2023 [employer]. Follow Up Care 04/28/2024 12:25:17 With:EMILE SHELLEY, John Hauser, URL Address: Lainey RICHARDS [address] [address]- When: Unknown [facility] [place] [id number] NotePatient Education Urology Prostatic Urethral Lift Prostatic [...] including vitamins, herbs, eye drops, creams, and iqme-lqd-tnkfnvq medicines. ??? Any problems you or family [...] tells you to take them. ??? Taking qzmz-vvb-wrtefxu medicines, vitamins, herbs, and supplements. Surgery safety [...] procedure to relieve symptoms (more content not included)...[facility]12-19-2024 History of Present illness Narrative* Rene [...] , Rfl: omega-3 fatty acids-fish oil (One-Per-Day [place]-3) 684-1,200 mg capsule, Take as directed, Disp: [...] 11 Assessment/Plan 1. Coronary artery disease involving houlton coronary artery of houlton heart without angina pectorisFollow Up In Cardiology [...] exam, discussion and plan. documented in this [facility] Work Phone: 1(845) 763-616912-19-2024 Instructions* Patient Instructions* Ana Cunningham LPN - [...] on exercise. Follow up documented in this [facility] Work Phone: 1(373) 116-434612-11-2024 History of Present illness Narrative* Gurjit Busby NP - 05/07/2024 5:15 PM EST Images from the original note were not included. [address] , [address] [facility], [address] P: [phone] F: [phone] HPI Historian of HPI: patient Demarcus Calderon [...] PE. IH Testing: Pt was admitted to [facility] for pneumonia in January of 2024. PHYSICAL [...] with exam. TREATMENT PLAN documented in this [facility]12-11-2024 Instructions* Patient Instructions* Gurjit Busby NP - 05/07/2024 5:15 PM EST Cover for otitis. Finish all doses of antibiotic Push fluids, may continue with OTC Meds for sy mptom relief COPD Is stable, saw pulmonology today documented in this [facility]12-02-2024 Hospital Discharge instructions Patient Education [...] nerve stimulation). ?For women, using a medical technologist prn to prevent urine leaks. This is a [...] right after experiencing incontinence. General instructions Take molq-mmf-stgamiu and prescription medicines only as told by [...] important. Where to find more information National [place] of Diabetes and Digestive and Kidney Diseases: www.niddk.nih.gov [place] U[employer] Association: www.urologyhealth.org Contact a health care [...] provider. Document Revised: 12/17/2020 Document Reviewed: 12/17/2020 [employer] Patient Education 2023 [employer]. 04/28/2024 12:02:20 Acute Urinary Retention, Male Acute [...] Follow these instructions at home: Medicines Take ctal-kry-zppcwpp and prescription medicines only as told by [...] provider. Document Revised: 02/02/2021 Document Reviewed: 02/02/2021 [employer] Patient Education 2023 [employer]. 04/28/2024 12:02:13 Prostate Cancer Screening Prostate Cancer [...] treatment? Where to find more information The [place] [employer] Society: www.cancer.org [employer] U[employer] Association: www.auanet.org Contact a health care [...] provider. Document Revised: 11/07/2021 Document Reviewed: 11/07/2021 [employer] Patient Education 2023 [employer]. Follow Up Care 04/16/2024 11:10:33 With:SU COOK PA-C, URL Address: [facility] [place] [address] When: Unknown [facility] [place] [id number] NotePatient Education Oncology Prostate Cancer Screening Prostate [...] Where to find more information ??? The [place] Cancer Society: www.cancer.org ??? [place] [employer] Association: www.auanet.org Contact a health care [...] men. The prostate gland (more content not included)...[facility]11-20-2024 NoteUrology Office/Clinic Note Chief Complaint new [...] When Contact Information SU COOK PA-C, URL [address] [place] [address] Additional Instructions: f/u in 2 weeks w/ PSA and PVR Patient Education Acute Urinary Retention, Male Benign Prostatic Hyperplasia Prostatitis Problem List/Past Medical History Ongoing Chronic systolic congestive heart f (more content not included)...[facility] HospitalComment on above:Result Comment: Electronically Signed By: SU COOK PA-C\.br\Date and Time Signed: 04/16/2414:04 EST\.br\Electronically Co-Signed By: Tatiana Dyson PA-C\.br\Date and Time Co-Signed: 04/16/2413:22 EST\.br\Electronically Co-Signed By: Tatiana Dyson PA-C\.br\Date and Time Co- Signed: 04/16/2413:24 [id number] Hospital Discharge instructions Patient Education 04/16/2024 11:46:12 [...] Follow these instructions at home: Medicines Take wvuz-auv-gqknnnp and prescription medicines only as told by [...] provider. Document Revised: 02/02/2021 Document Reviewed: 02/02/2021 [employer] Patient Education 2023 [employer]. 04/16/2024 11:46:02 Benign Prostatic Hyperplasia Benign Prostatic [...] urethra. Follow these instructions at home: Take cxyg-yts-fjwpdga and prescription medicines only as told by [...] provider. Document Revised: 11/30/2021 Document Reviewed: 11/30/2021 [employer] Patient Education 2023 [employer]. 04/16/2024 11:46:00 Prostatitis Prostatitis Prostatitis is swelling [...] Follow these instructions at home: Medicines Take sqfe-rhp-tnnubbj and prescription medicines only as told by [...] important. Where to find more information [place] of Diabetes and Digestive and Kidney Diseases: [...] depends on the type of prostatitis. Take wlbh-pgl-nrjqbav and prescription medicines only as told by [...] provider. Document Revised: 03/29/2023 Document Reviewed: 03/29/2023 [employer] Patient Education 2023 [employer]. Follow Up Care 03/06/2024 09:43:54 With:ADRIÁN DELACRUZ, SU Esquivel, URL Address: [address] [place], [place] [address] [address] When: Unknown Comments:f/u in 2 weeks w/ PSA and PVR [facility] [place] [id number] NotePatient Education Infectious Disease Prostatitis Prostatitis is [...] these instructions at home: Medicines ??? Take tomt-djq-wzzcqyc and prescription medicines only as told by [...] provider. This is important. (more content not included)...[facility]10-30[facility] History of Present illness Narrative* Sera [...] HISTORY: Past Medical History: Diagnosis Date Asthma ([facility]) BPH (benign prostatic hyperplasia) CAD (coronary artery disease) ([facility]) COPD (chronic obstructive pulmonary disease) ([facility]) Emphysema, unspecified ([facility]) Hypercholesterolemia ([facility]) Hypertensive heart disease ([facility]) SURGICAL HISTORY: Past Surgical History: Procedure Laterality [...] 50 MCG/ACT nasal spray 2 sprays, Daily Bmdfqroqulu-Cyniydfar-Wiqfwj (Trelegy Ellipta) 100-62.5-25 MCG/ACT aerosol powder 1 [...] or concerns. 3. Coronary artery disease involving houlton coronary artery of houlton heart without angina pectoris(CMS/HCC) Doing well. Denies [...] evaluation may be necessary. documented in this encounterCitizens Memorial HealthcareLscegybahi35-16-1173 History of Present illness Narrative* Sally Ba, HOP STRAINER - 02/27/2024 10:45 AM EDT Images from the original note were not included. Demarcus Calderon is a 69 y.o. male presents with chief complaint of Hospital Follow-up ([facility] dx: sepsis, COPD, pneumonia) HPI: Patient presented to [facility] ER with complaints of shortness of breath, productive cough and wheezing. CXR showed right lower lobe and middle lobe pneumonia. He was prescribed Prednisone and Cefdinir. He reports to be feeling much better. He does have follow-up scheduled with Dr. 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 History of Present Illness The [...] Flowsheet Row Patient Outreach from 02/21/2024 in [facility] with Tootie Jacobson RN Hospital Information Diagnosis Pneumonia, HTN, CHF, Benign prostate hyperplasia without urinary symptoms. Discharged To: Home Setting Discharge Hospital [facility] Engagement Admission Date 02/17/24 Medications Discharge [...] HISTORY: Past Medical History: Diagnosis Date Asthma ([facility]) BPH (benign prostatic hyperplasia) CAD (coronary artery disease) ([facility]) COPD (chronic obstructive pulmonary disease) ([facility]) Emphysema, unspecified ([facility]) Hypercholesterolemia ([facility]) Hypertensive heart disease ([facility]) SURGICAL HISTORY: Past Surgical History: Procedure Laterality [...] nasal spray 2 sprays, Each Nostril, Daily Lbaivgnglpw-Gisekzkan-Bhrbhx (Trelegy Ellipta) 100-62.5-25 MCG/ACT aerosol powder 1 [...] - Basic metabolic panel 4. Essential hypertension ([facility]CC) Doing well. Blood pressures have been good. Continue lifestyle modifications. Continue current medication. Call if any problems or if home blood pressures rising. - Basic metabolic panel 5. Chronic systolic congestive heart failure ([facility]) It was felt pt had volume overload due to IVF. He is using Lasix intermittently. Denies problems with SOB, COYNE, or increased edema with weight gain. Continue current medication regimen. Eat a heart healthy diet low in sodium. Monitor weights regularly and call if increased more than 5 pounds. Call immediately if any problems or concerns. 6. Coronary artery disease involving houlton coronary artery of houlton heart without angina pectoris([facility]) Doing well. Denies any anginal symptoms. Continue aggressive risk factor modification. Continue current medications. Call if any problems. 7. Gastroesophageal reflux disease without esophagitis Stable. Continue current regimen. 8. Benign prostatic hyperplasia without urinary obstruction Stable. Continue current regimen. - PSA, total and free documented in this encounterNOMS [id number] Note Gram Stain Evaluation This specimen is of good quality and is acceptable for routine Citizens Memorial HealthcareHlidtzmukj01-79-5910 NoteGRAM STAIN EVALUATIONbacterial culture.[facility] [id number] History of Present illness Narrative* Rene Cortez [...] and he continues to follow with the [facility]. Recent lab data from the [facility] were provided and reviewed with him. LDL [...] , Rfl: omega-3 fatty acids-fish oil (One-Per-Day [place]-3) 684-1,200 mg capsule, Take as directed, Disp: [...] 3 Assessment/Plan 1. Coronary artery disease involving houlton coronary artery of houl[place] heart without angina pectorisFollow Up In Cardiology [...] exam, discussion and plan. documented in this [facility] Work Phone: 1(150) 852-666005-23-2024 Instructions* Patient Instructions* Ana Cunningham LPN - [...] Follow up 6 months documented in this [facility] Work Phone: 1(814) 374-242302-03-2024 History of Present illness Narrative* Hosea Snyder, [...] day x 3 days documented in this encounterCitizens Memorial HealthcareXnndvmwmoh15-69-9543 History of Present illness Narrative* Rene Cortez [...] emphasis on low-calorie diet Rene Cortez MD, [facility] Review of Systems All other systems [...] , Rfl: omega-3 fatty acids-fish oil (One-Per-Day [place]-3) 684-1,200 mg capsule, Take as directed, Disp: [...] Rfl: Assessment/Plan 1. Coronary artery disease involving houlton coronary artery of [place] heart without angina pectorisFollow Up In Cardiology [...] Aspartate Aminotransferase Alanine Aminotransferase documented in this [facility] Work Phone: 1(623) 769-590410-27-2023 Instructions* Patient Instructions* Millie Hoffmann CMA - [...] time of your visit. documented in this [facility] Work Phone: 1(113) 400-904106-20-2023 NoteHNO ID: [id number] Author: Deandra Bender MD Service: ? Author [...] or facial palsy H/o Botox injections in [place]-->didn't help No h/o trauma H/o sinus surgery [...] can I get the FL-41 filter? Any [facility] location, (with an optical shop), throughout [place], Email: [email or web address] [employer] [facility] in [place], [place], [facility] in [place], [place], [facility] in [place], [place], [employer] [facility] [facility] [employer] in [place], [place], [phone] www.[email or web address] [email or web address] Botulinum toxin 3 months, Botulinum toxin [...] Deandra Bender MD, November 14, 2022 10:00 AM.[facility]06-20-2023 History of Present illness Narrative* Deandra Bender MD - 11/14/2022 10:00 AM EDT Here for botox Right eye just started twitching Tears as needed. -rofPatient still having twitching right eye and occasionally the left. Refresh tears four times a day. -rof A/P: Right hemifacial spasm x 2 years Patient doesn't remember h/o bells or facial palsy H/o Botox injections in [place]-->didn't help No h/o trauma H/o sinus surgery [...] prior to injection. Could try to get aids tinted glasses if patient desires Where can I get the FL-41 filter? Any [facility] location, (with an optical shop), throughout [place], Email: [email or web address] [employer] [facility] in [place], [place], [employer] [facility] in [place], [place], [facility] in [place], [place], [employer] in [place], [place], [phone] www.[email or web address] F/u Botulinum toxin 3 months, Botulinum toxin [...] 14, 2022 10:00 AM. documented in this encounterSumma Health03-14-2023 NoteHNO ID: [id number] Author: Deandra Bender MD Service: ? Author Type: Physician Type: Progress Notes Filed: 08/08/2022 3:09 PM Note Text: Patient still having twitching right eye and occasionally the left. Refresh tears four times a day. -rof A/P: Right hemifacial spasm x 2 years Patient doesn't remember h/o bells or facial palsy H/o Botox injections in [place]-->didn't help No h/o trauma H/o sinus surgery [...] Deandra Bender MD, August 08, 2022 3:05 PM.[facility]03-14-2023 History of Present illness Narrative* Deandra Bender MD - 08/08/2022 3:45 PM EDT Patient still having twitching right eye and occasionally the left. Refresh tears four times a day. -rof A/P: Right hemifacial spasm x 2 years Patient doesn't remember h/o bells or facial palsy H/o Botox injections in [place]-->didn't help No h/o trauma H/o sinus surgery [...] 08, 2022 3:05 PM. documented in this encounterSumma Health03-14-2023 Instructions* Patient Instructions* Deandra Bender MD - [...] Photodocumentation Recheck next visit documented in this encounterSumma Health01-25-2023 Miscellaneous Notes* [place] [facility] [place] 2:03 PM EST Notes and MRI orders faxed to [facility]. * Telephone Encounter - Delores Mccollum - 06/21/2022 12:50 PM EST [facility] called today. : 1955 Allergies: Codeine, Codeine-Guaifenesin, and Guaifenesin (home) [phone] (cell) Reason for call: Sasha F:[phone] Asking for the MRI orders and office notes to be faxed over to [facility]. Patient will be having them done there. Patient last appointment: Visit date not found The patients preferred pharmacy has been captured for this encounter? not asked Deloresguanakito Mccollum documented in this encounterSumma Health01-25-2023 NoteHNO ID: [id number] Author: Deandra Bender MD Service: ? Author Type: Physician Type: Progress Notes Filed: 06/21/2022 9:08 AM Note Text: Twitching right eye x two years. Both upper and lower lid. Trouble reading because of it. +tearing and burning. Refresh four times a day. -rof A/P: Right hemifacial spasm x 2 years Patient doesn't remember h/o bells or facial palsy H/o Botox injections in [place]-->didn't help No h/o trauma H/o sinus surgery [...] Deandra Bender MD, June 21, 2022 9:05 AM.[facility]01-25-2023 Instructions* Patient Instructions* Deandra Bender MD - [...] toxin and get MRI documented in this encounterSumma Health01-25-2023 History of Present illness Narrative* Deandra Bender MD - 06/21/2022 9:00 AM EST Twitching right eye x two years. Both upper and lower lid. Trouble reading because of it. +tearing and burning. Refresh four times a day. -rof A/P: Right hemifacial spasm x 2 years Patient doesn't remember h/o bells or facial palsy H/o Botox injections in [place]-->didn't help No h/o trauma H/o sinus surgery [...] 2022 9:05 AM. documented in this encounterCleveland [id number] NoteHNO ID: [id number] Author: Mau Randle OD Service: ? Author Type: BELL STAFF Type: Progress Notes Filed: 05/01/2022 9:22 AM [...] all of its relevant components. Mau Randle, LAT[facility]HA[facility] History of Present illness Narrative* Mau Randle [...] components. Mau Randle OD documented in this encounterSumma [place] [address] Discharge Summary Signed Patient: Demarcus Calderon MR#: [id number] : 1955 Acct:[id number] Age/Sex: 69 / M Adm Date: 5 Loc: Room: [address] [place] [address]: Vincenzo Caraballo DO Copies to: MD Vincenzo Sam, DO~ Providers Date of Admission: 10/16/24 Date of Discharge: 10/17/24 Discharging Provider: Vincenzo Caraballo Primary Care Provider: Sera Flower Consults: 10/16/24 23:19 Consult to Cardiology Routine Comment: Consulting Provider: [facility] Reason For Exam: acute on chronic systolic [...] likelydue to ischemia. He had been at [facility] approximately 6 to 7 days for fluid overload and pneumonia. He completed treatment of pneumonia. Upon arrival here he was doing well on 1 L nasal cannula, he was made n.p.o., cardiology was consulted and notified of thisconsult. He was taken to the [facility] the afternoon of the , please see [...] Low-Sodium Additional Instructions: DISCHARGE INSTRUCTIONS FOR CARDIAC PROPERTY CUSTODIAN PROCEDURE: Heart Cath The following instructions have [...] cold, numb, blue or white, call the director of therapy services immediately. 4. ACTIVITY: You are advised to [...] bottle, follow the instructions on the bottle. [facility] is not responsible for incorrect prescription information [...] Continuity of Care Document Health Concerns: A [facility] screening has identified you as FRAIL or [...] Strong:Four Ways to Beat the Frailty Risk [email or web address]/vxyobkqd-mec-[email or web address]/st on-xuutqs-zyhx- divr-kw-cbhe-oln-rjzgtqg-jgpq Exam Physical Exam Vital Signs: Temp Pulse [...] Caraballo DO 10/19/241402 Signed By: 10/19/24 1407 [facility] Author Vincenzo Caraballo [facility] Note Date/Time October 19, 2024 2:07p [facility] [address] [place] [address] Discharge Summary Signed Patient: Demarcus Calderon MR#: [id number] : 1955 Acct:[id number] Age/Sex: 69 / M Adm Date: 5 Loc: 4 Room: [address] [place] [address]: Vincenzo Caraballo DO Copies to: MD Vincenzo Sam DO~ Providers Date of Admission: 10/16/24 Date of Discharge: 10/17/24 Discharging Provider: Vincenzo Caraballo Primary Care Provider: Sera Flower Consults: 10/16/24 23:19 Consult to Cardiology Routine Comment: Consulting Provider: [facility] Reason For Exam: acute on chronic systolic [...] due to ischemia. He had been at [facility] approximately 6 to 7 days for fluid overload and pneumonia. He completed treatment of pneumonia. Upon arrival here he was doing well on 1 L nasal cannula, he was made n.p.o., cardiology was consulted and notified of thisconsult. He was taken to the [facility] the afternoon of the , please see [...] Low-Sodium Additional Instructions: DISCHARGE INSTRUCTIONS FOR CARDIAC PROPERTY CUSTODIAN PROCEDURE: Heart Cath The following instructions have [...] cold, numb, blue or white, call the director of therapy services immediately. 4. ACTIVITY: You are advised to [...] bottle, follow the instructions on the bottle. [facility] is not responsible for incorrect prescription information [...] Continuity of Care Document Health Concerns: A [facility] screening has identified you as FRAIL or [...] Four Ways to Beat the Frailty Risk [email or web address]/qglbxklg-xyr-nfnckqtgbf/pepn-tameyt-ehat- qhpj-dy-hmyc-znw-tlqayhd-qgrr Exam Physical Exam Vital Signs: Temp Pulse [...] signed by Vincenzo Caraballo DO> 10/19/24 1407 [facility] Work Phone: Evaluation + Plan note Future Appointments Appointment Date:04/25/2024 08:30:00 AM Scheduled Provider: Location:[facility] Appointment Type:URO Nurse Visit Appointment Date:04/28/2024 11:20:00 AM Scheduled Provider:SU COOK PA-C Location:[facility] Appointment Type:URO Office Visit [facility] Evaluation + Plan note Future Appointments Appointment Date:04/28/2024 11:20:00 AM Scheduled Provider:SU COOK PA-C Location:[facility] Appointment Type:URO Office Visit [facility] Evaluation + Plan note Future Appointments Appointment Date:06/23/2024 03:00:00 PM Scheduled Provider:John BAPTISTE MD Location:[facility] Appointment Type:URO Procedure 15 min [facility] evaluation + Plan note Future Appointments Appointment Date:08/13/2024 12:00:00 PM Scheduled Provider: Location:[facility] Appointment Type:Urology CALL PAT FT Appointment Date:08/14/2024 01:30:00 PM Scheduled Provider: Location:[facility] Appointment Type:Urology FT [facility] Evaluation + Plan note Future Appointments Appointment Date:06/02/2025 09:30:00 AM Scheduled Provider: Location:[facility] Appointment Type:URO Nurse Visit Appointment Date:06/09/2025 09:45:00 AM Scheduled Provider:John BAPTISTE MD 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 documented in this encounter [facility]* Diagnosis Clonic hemifacial spasm, right- Primary documented in this encounter [facility]* Diagnosis Clonic hemifacial spasm, right- Primary documented in this encounter Summa HealthEvaluation noteNo assessment information availableLakehealth [facility] Work Phone: Evaluation note* Diagnosis Coronary artery disease involving houlton coronary artery of houlton heart without angina pectoris Essential hypertension Unspecified essential hypertension Mixed hyperlipidemia Ischemic cardiomyopathy Other specified forms of chronic ischemic heart disease Status post coronary artery stent placement Postsurgical percutaneous transluminal coronary angioplasty status Class 2 obesity with body mass index (BMI) of 35.0 to 35.9 in adult, unspecified obesity type, unspecified whether serious comorbidity present documented in this encounter [facility] Work Phone: Evaluation note* Diagnosis Acute exacerbation of chronic obstructive pulmonary disease (CMS/HCC)- Primary Obstructive chronic bronchitis with exacerbation documented in this encounter [facility] Healthcare[facility] note* Diagnosis Coronary artery disease involving houlton coronary artery of houlton heart without angina pectoris- Primary Essential hypertension [...] hazards to health documented in this encounter [facility] Work Phone: Evaluation note* Diagnosis Sepsis, due to unspecified organism, unspecified whether acute organ dysfunction present (CMS/HCC)- Primary Pneumonia of right middle lobe due to infectious organism Hyponatremia Hyposmolality and/or hyponatremia Essential hypertension (CMS/HCC) Unspecified essential hypertension Chronic systolic congestive heart failure (CMS/HCC) Coronary artery disease involving houlton coronary artery of houlton heart without angina pectoris (CMS/HCC) Gastroesophageal reflux disease without esophagitis Esophageal reflux Benign prostatic hyperplasia without urinary obstruction documented in this encounter [facility] HealthcareEvaluation note* Diagnosis Essential hypertension (CMS/HCC)- Primary Unspecified essential hypertension Chronic systolic congestive heart failure (CMS/HCC) Coronary artery disease involving houlton coronary artery of houlton heart without angina pectoris (CMS/HCC) Chronic obstructive [...] HealthcareEvaluation note* Diagnosis Coronary artery disease involving houlton coronary artery of houlton heart without angina pectoris- Primary Essential hypertension Unspecified essential hypertension Ischemic cardiomyopathy Other specified forms of chronic ischemic heart disease Mixed hyperlipidemia Status post coronary artery stent placement Postsurgical percutaneous transluminal coronary angioplasty status Former smoker Personal history of tobacco use, presenting hazards to health BMI 36.0-36.9,adult Class 2 obesity documented in this encounter [facility] Work Phone: Evaluation note* Diagnosis Chronic [...] Other abnormal glucose Coronary artery disease involving houlton coronary artery of houlton heart without angina pectoris (CMS/HCC) Severe persistent [...] ischemic heart disease documented in this encounter [facility] Work Phone: Hospital course Narrative No data available for this section [facility] Discharge instructions Additional Instructions If your symptoms return/worsen or you develop any further concerns or symptoms please see your doctor or return to the emergency department immediately.[facility] Work Phone: Hospital Discharge instructions No data available for this section [facility] Discharge instructions Additional Instructions DISCHARGE INSTRUCTIONS FOR CARDIAC PROPERTY CUSTODIAN PROCEDURE: Heart Cath The following instructions have [...] cold, numb, blue or white, call the director of therapy services immediately. 4. ACTIVITY: You are advised to [...] bottle, follow the instructions on the bottle. [facility] is not responsible for incorrect prescription information provided by the patient during their visit. Do not stop your medications without consulting your health care provider. Please take the list with you to your next doctor's appointment.[facility] Work Phone: Progress note No data available for this section [facility] Reason for referral (narrative)* Consultation (Routine) - Authorized Specialty Diagnoses / Procedures Referred By Contac t Referred To Contact Cardiology Diagnoses Coronary artery disease involving houlton coronary artery of houlton heart without angina pectoris Essential hypertension Mixed hyperlipidemia Ischemic cardiomyopathy Status post coronary artery stent placement Class 2 obesity with body mass index (BMI) of 35.0 to 35.9 in adult, unspecified obesity type, unspecified whether serious comorbidity present Procedures Follow Up In Cardiology Rene Cortez MD [address] [facility] 2, [address] [address] Rene Cortez MD [address] [place] [address] Referral ID Status Reason Start Date Expiration Date V isits Requested Visits Authorized [id number] Authorized 03/23/2023 03/22/2024 1 1 [facility] Work Phone: Reason for referral (narrative)* Consultation (Routine) - Authorized Specialty Diagnoses / Procedures Referred By Bryon hernandez Referred To Contact Cardiology Diagnoses Coronary artery disease involving houlton coronary artery of houlton heart without angina pectoris Procedures Follow Up In Cardiology Rene Cortez MD [address] [facility] 2, [address] [place] [address] Rene Cortez MD [address] [facility] 2, [address] [place] [address] Referral ID Status Reason Start Date Expiration Date V isits Requested Visits Authorized [id number] Authorized 10/18/2023 10/17/2024 1 1 [facility] Work Phone: Chief Complaint * DEMARCUS [...] infarction with no ischemia. EF in the [id number]. He remains compensated as for ischemic cardiomyopathy. [...] on low-calorie diet * Rene Cortez MD, [facility] * DEMARCUS CALDERON is being seen [...] on low-calorie diet * Rene Cortez MD, [facility] Family History No Family History Records FoundUnknown [...] MATRL Deandra Bender MD [address] [place] [address] Mr Imaging Referral ID Status Reason Start Date Expiration Date Visits Requested Visits Authorized [id number] Pending Review Auto-Generat ed Referral 06/21/2022 07/21/2023 1 1 Specialty Diagnoses / Procedures Referred By Bryon hernandez Referred To Contact MR IMAGING Diagnoses Paralytic strabismus Procedures MRI BRAIN WO/W IVCON MRI BRAIN BRAIN STEM W/O W/CONTRAST MATERIAL Deandra Bender MD [address] [place] [address] Mr Imaging Referral ID Status Reason Start Date Expiration Date Visits Requested Visits Authorized [id number] Pending Review Auto-Generat ed Referral 06/21/2022 07/21/2023 [...] or prosecute any alcohol or drug abuse patient.Summa HealthIn the event this information is protected by the Federal Confidentiality of Alcohol and Drug Abuse Patient Records regulations: The Federal rules restrict any use of the information to criminally investigate or prosecute any alcohol or drug abuse patient.Summa HealthIn the event this information is protected by the Federal Confidentiality of Alcohol and Drug Abuse Patient Records regulations: The Federal rules restrict any use of the information to criminally investigate or prosecute any alcohol or drug abuse patient.Summa HealthIn the event this information is protected by the Federal Confidentiality of Alcohol and Drug Abuse Patient Records regulations: The Federal rules restrict any use of the information to criminally investigate or prosecute any alcohol or drug abuse patient.Summa HealthIn the event this information is protected by the Federal Confidentiality of Alcohol and Drug Abuse Patient Records regulations: The Federal rules restrict any use of the information to criminally investigate or prosecute any alcohol or drug abuse patient.[facility] Reason for Visit (unrecogniz ed section and [...] up to 100 units Procedures BOTOX EI [id number] [place] [address] [place] [address] Deandra Bender MD [address] [place] [address] Referral ID Status Reason Start Date Expiration Date V isits Requested Visits Authorized [id number] Authorized 11/14/2022 05/27/2023 99 99 Reason Comments Follow-up 6 months Reason Comments Follow-up 6m Specialty Diagnoses / Procedures Referred By Contac t Referred To Contact Cardiology Diagnoses Coronary artery disease involving houlton coronary artery of houlton heart without angina pectoris Essential hypertension Mixed hyperlipidemia Ischemic cardiomyopathy Status post coronary artery stent placement Class 2 obesity with body mass index (BMI) of 35.0 to 35.9 in adult, unspecified obesity type, unspecified whether serious comorbidity present Procedures Follow Up In Cardiology Rene Cortez MD 7[address] [facility] 2, [address] [address] Rene Cortez MD 7[address] [facility] 2, [address] [place] [address] Referral ID Status Reason Start Date Expiration Date V isits Requested Visits Authorized [id number] Authorized 03/23/2023 03/22/2024 1 1 Reason Comments Hospital Follow-up [facility] dx: sepsis, COPD, pneumonia Reason Comments 6 Month Follow-up Lab drawn 02/27/2024 . Cough Productive cough con tinues with yellow sputum. Occasional shortness of breath. CXR ordered on 02/26 to repeat in 8 weeks Reason Comments Earache Reason Comments Follow-up 6 month Specialty Diagnoses / Procedures Referred By Bryon t Referred To Contact Cardiology Diagnoses Coronary artery disease involving houlton coronary artery of houlton heart without angina pectoris Procedures Follow Up In Cardiology Rene Cortez MD [address] [place] [address] 2, [address] [address] Phone: tel: fax: Rene Cortez MD [address] [place] [address] 2, [facility] [address] [place] [address] Phone: tel: fax: Referral ID Status Reason Start Date Expiration Date V isits Requested Visits Authorized [id number] Authorized 10/18/2023 10/17/2024 1 1 Reason Comments ER Follow-up [facility] 06/29/2024 dx: COPD exacerbation 2ndry [...] Skin lesion of back Sebaceous cyst Procedures RI OFFICE/OUTPATIENT [facility] 60 MINUTES Sally Ba NP [address] [place] [address] Phone: tel: fax: Marybeth Long MD [address] [place] [address] Phone: tel: fax: Referral ID Status Reason Start Date Expiration Date V isits Requested Visits Authorized [id number] Closed Consult and Treat 07/02/2024 12/29/2024 1 1 Reason Comments 6 Month Follow Up of Chronic Conditions Medicare Annual Wellness Visit Jacinda david ER Follow-up [facility] for CHF. He was advised to resume Lasix, which was discontinued in the past due to low sodium levels. Reason Comments Follow-up [facility] [place] low ef (unrecognized sect [...] DATE CREATED AUTHOR AUTHOR'S ORGANIZ ATION 11/14/2022 [facility] DATE CREATED AUTHOR AUTHOR'S ORGANIZ ATION 02/12/2023 [facility] ical Center DATE CREATED AUTHOR AUTHOR'S ORGANIZ ATION 02/28/2023 [facility] DATE CREATED AUTHOR AUTHOR'S ORGANIZ ATION 09/29/[address] [facility] dical Specialists EPIC DATE CREATED AUTHOR AUTHOR'S ORGANIZ ATION 11/26/2024 [facility] DATE CREATED AUTHOR AUTHOR'S ORGANIZ ATION 12/12/2024 [facility] DATE CREATED AUTHOR AUTHOR'S ORGANIZ ATION 12/15/2024 [facility] DATE CREATED AUTHOR AUTHOR'S ORGANIZ ATION 12/20/2024 [facility] DATE CREATED AUTHOR AUTHOR'S ORGANIZ ATION 02/05/2025 [facility] Care Teams (unrecognized sec tion and content) Team Status: Active Member Role Status Dates Sera Flower MD Primary Care Provider Active Team Status: Inactive Member Role Status Dates Sera Flower MD Primary Care Provider, Other Provider Active Rene Cortez MD Attending Provider Active Information Systems Technician Relationship Specialty Start Date End Date Sera Flower MD [address] [place] [id number] PCP - General 02/16/21 Team Status: Inactive Member Role Status Dates Sera Flower MD Primary Care Provider Active St art: June 14, 2023 End: June 14, 2023 Jasper Martinez DO Emergency Provider Active Start: June 14, 2023 End: June 14, 2023 Information Systems Technician Relationship Specialty Start Date End Date Sera Flower MD [address] [place] [address] PCP - [employer] 05/28/22 Sera Flower MD [address] [place] [address] PCP - General Internal Medicine 10/03/22 Information Systems Technician Relationship Specialty Start Date End Date Sera Flower MD [address] [place] [phone] PCP - General 02/16/21 Information Systems Technician Relationship Specialty Start Date End Date Sera Flower MD [address] [place] [address] PCP - [employer] 05/28/22 Sera Flower MD [address] [place] [address] PCP - General Internal Medicine 10/03/22 Tootie Jacobson, DOUG [address] [place] [address] Registered Nurse Internal Medicine 08/10/23 Rene Cortez MD [address] [facility] [address] [place] [address] Referring Physician Cardiology 09/05/23 Information Systems Technician Relationship Specialty Start Date End Date Sera Flower MD [address] [place] [address] PCP - [employer] 05/28/22 Sera Flower MD [address] [place] [address] PCP - General Internal Medicine 10/03/22 Tootie Jacobson, DOUG [address] [place] [address] Registered Nurse Internal Medicine 08/10/23 03/28/24 Rene Cortez MD [address] [place] [address] [address] [place] [address] Referring Physician Cardiology 09/05/23 Information Systems Technician Relationship Specialty Start Date End Date Sera Flower MD [address] [place] [address] PCP - [employer] 05/28/22 Sera Flower MD [address] [place] [address] PCP - General Internal Medicine 10/03/22 Rene Cortez MD [address] [place] [address] [address] [place] [address] Referring Physician Cardiology 09/05/23 Orquidea Carreon, RN Registered Nurse Family Medicine 03/28/24 Information Systems Technician Relationship Specialty Start Date End Date Sera Flower MD [address] [place] [address] PCP - [employer] 05/28/22 Sera Flower MD [address] [place] [address] PCP - General Internal Medicine 10/03/22 Tootie Jacobson RN [address] [place] [address] Registered Nurse Internal Medicine 08/10/23 Rene Cortez MD [address] [facility] [address] [place] [address] Referring Physician Cardiology 09/05/23 Information Systems Technician Relationship Specialty Start Date End Date Sera Flower MD [address] [place] [address] PCP - [employer] 05/28/22 Sera Flower MD [address] [place] [address] PCP - General Internal Medicine 10/03/22 Tootie Jacobson RN [address] [place] [address] Registered Nurse Internal Medicine 08/10/23 Rene Cortez MD [address] [facility] [address] [place] [address] Referring Physician Cardiology 09/05/23 Information Systems Technician Relationship Specialty Start Date End Date Sera Flower MD [address] [place] [address] PCP - [employer] 05/28/22 Sera Flower MD [address] [place] [address] PCP - General Internal Medicine 10/03/22 Tootie Jacobson RN [address] [place] [address] Registered Nurse Internal Medicine 08/10/23 Rene Cortez MD [address] [facility] [address] [place] [address] Referring Physician Cardiology 09/05/23 Information Systems Technician Relationship Specialty Start Date End Date Sera Flower MD [address] [place] [address] PCP - General 02/16/21 Information Systems Technician Relationship Specialty Start Date End Date Sera Flower MD [address] [place] [address] PCP - [employer] 05/28/22 Sera Flower MD [address] [place] [address] PCP - General Internal Medicine 10/03/22 Rene Cortez MD [address] [facility] [address] [place] [address] Referring Physician Cardiology 09/05/23 Orquidea Shah RN Registered Nurse Internal Medicine 06/03/24 Information Systems Technician Relationship Specialty Start Date End Date Sera Flower MD [address] [place] [address] PCP - [employer] 05/28/22 Sera Flower MD [address] [place] [address] PCP - General Internal Medicine 10/03/22 Rene Cortez MD [address] [facility] [address] [place] [address] Referring Physician Cardiology 09/05/23 Orquidea Shah, RN Registered Nurse Internal Medicine 06/03/24 Information Systems Technician Relationship Specialty Start Date End Date Sera Flower MD [address] [place] [address] PCP - [employer] 05/28/22 Sera Flower MD [address] [place] [address] PCP - General Internal Medicine 10/03/22 Rene Cortez MD [address] [facility] [address] [place] [address] Referring Physician Cardiology 09/05/23 [facility] Internal Medicine 06/03/24 Information Systems Technician Relationship Specialty Start Date End Date Sera Flower MD [address] [place] [address] PCP - [employer] 05/28/22 Sera Flower MD [address] [place] [address] PCP - General Internal Medicine 10/03/22 Rene Cortez MD [address] [facility] [address] [place] [address] Referring Physician Cardiology 09/05/23 Orquidea Shah, RN Registered Nurse Internal Medicine 06/03/24 Evens Morgan MD [address] [place] [id number] Referring Physician Pulmonary Disease 09/24/24 John Baptiste MD [address] [place] [address] Referring Physician Urology 09/24/24 Gurjit Busby NP [address] [place] [address] Nurse Practitioner Family Medicine 09/24/24 [facility] [...] End: October 18, 2024 Joanne Edouard , [facility]- Other Provider Active Sta rt: October 16, 2024 End: October 18, 2024 Vincenzo Caraballo DO Attending Provider Active St art: October 16, 2024 End: October 18, 2024 Information Systems Technician Relationship Specialty Start Date End Date Rk Pate MD [address] [facility] [place] [address] PCP - General Family Medicine 10/24/24 Team [...] BE BASED ON THE PRIMARY CLINICAL RECORDS. [employer] provides no warranty or guarantee of the accuracy or completeness of information in this document.
[2025-03-16 09:17] LABS: Alanine Aminotransferase 71 U/L (16-63); Albumin Globulin Ratio 1.1; Albumin Level 3.9 g/dL (3.4-5.0); Alkaline Phosphatase 91 U/L (46-116); Anion Gap 13.2; Aspartate Amino Transferase 32 U/L (15-37); Blood Urea Nitrogen 9.0 mg/dL (7.0-18.0); Calcium 9.2 mg/dL (8.5-10.1); Carbon Dioxide 27.9 mmol/L (21.0-32.0); Chloride 101 mmol/L (98-107); Cholesterol 193 mg/dL (<=200); Estimated GFR (African America >60 (>=60 mL/min/1.73m^2); Estimated GFR (Non-African Ame >60 (>=60 mL/min/1.73m^2); Free T3 3.54 pg/mL (2.18-3.98); Globulin 3.6 g/dL; Glucose 119 mg/dL (74-106); HDL Cholesterol 35 mg/dL (40-60); Potassium 4.1 mmol/L (3.5-5.1); Sodium 138 mmol/L (136-145); Thyroid Stimulating Hormone 3.444 uIU/mL (0.358-3.740); Total Protein 7.5 g/dL (6.4-8.2); Triglycerides 139 mg/dL (<=150); Uric Acid 6.9 mg/dL (3.5-7.2); VLDL CHOLESTEROL 27.8 mg/dL
[2025-03-16 10:45] LABS: Hematocrit 44.2 % (42.0-54.0); Hemoglobin 15.2 g/dL (14.0-18.0); Immature Granulocytes Abs Auto 0.01 10^3/uL (0.00-0.03); Immature Granulocytes Pct Auto 0.1 % (0.0-0.5); Lymphocytes Absolute Auto 1.8 10^3/uL (1.2-3.8); Mean Corpuscular HGB Conc 34.4 g/dL (29.9-35.2); Mean Corpuscular Hemoglobin 28.0 pg (25.9-34.0); Mean Corpuscular Volume 81.4 fL (80.0-94.0); Platelet Count 240 10^3/uL (150-450); Red Blood Count 5.43 10^6/uL (4.70-6.10); White Blood Count 9.1 10^3/uL (4.0-11.0)
== END 2025-03-16 08:15 | disposition home or self-care (01) ==
LOC: LAB 08:21
PROVIDERS: PCP Family Medicine; Visit Provider Family Medicine
DX: J44.9 Chronic obstructive pulmonary disease, unspecified (principal); N40.0 Benign prostatic hyperplasia without lower urinary tract symptoms; K21.9 Gastro-esophageal reflux disease without esophagitis; I10 Essential (primary) hypertension; E78.5 Hyperlipidemia, unspecified; R73.09 Other abnormal glucose; Z12.12 Encounter for screening for malignant neoplasm of rectum; R53.83 Other fatigue; Z12.5 Encounter for screening for malignant neoplasm of prostate
CPT/HCPCS: 36415; 80053; 80061; 83036; 84436; 84443; 84481; 84550; 85025; G0103

== ENCOUNTER 2025-04-15 08:52 | Emergency (ER) | payer MEDICARE, OTHER, SELFPAY ==
[2025-04-15] VITALS (32 sets, daily range): BP systolic 110–171; BP diastolic 62–110; PULSE 70–88; TEMP 36.4; O2SAT 89–99; BMI 35.1
--- NOTE | 2025-04-15 09:15 | ECG_ITS ---
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
--- NOTE | 2025-04-15 09:15 | XR_ITS ---
[facility] [place] [id number] Patient Name: DEMARCUS CALDERON MRN: [id number] date: 1955 Sex: M Assigned Patient Location: ER Current Patient Location: ED.MAIN Accession/Order Number: [id number] Exam Date: 04/15/2025 09:25 Report Date: 04/15/2025 09:38 At the request of: INDRA BERNARD MD Procedure: XR chest 1V PORTABLE AP ERECT CHEST 0925 hours CLINICAL HISTORY: Shortness of breath COMPARISON: 02/17/[address] 10/11/2024 The cardiac and mediastinal contours are similar. Chronic interstitial changes and subtle groundglass density are again noted. There is no new consolidation. There is no effusion or pneumothorax. The osseous structures are intact. XR/XR chest 1V IMPRESSION: CHRONIC CHANGES. NO ACUTE FINDINGS Impression dictated by: Lisa Barillas M.D. 04/15/2025 9:38 AM Dictation Location: [place] [address] Electronically authenticated by: [id number] Y Date: 04/15/2025 09:38
--- NOTE | 2025-04-15 09:16 | ED.GENADUL1 ---
HPI HPI - General Adult General Chief complaint: Shortness of Breath/Dyspnea Stated complaint: SOB CHEST PAIN Time Seen by Provider: 04/15/25 09:12 Source: patient and family Mode of arrival: walk-in Limitations: no limitations History of Present Illness HPI narrative: 70-year-old male presents to the emergency department for chest pain and shortness of breath. It began a day or 2 ago and he thinks he is filling up with water. He has a history of CHF. No fever but he has had a cough.. His ankles are a little bit more swollen than normal. Related Data Home Medications ?Medication ?Instructions ?Recorded ?Confirmed tamsulosin 0.4 mg capsule 0.8 mg PO .qhs 07/22/23 02/17/25 furosemide 40 mg tablet (Lasix) 40 mg PO DAILY 10/09/24 04/15/25 dapagliflozin propanediol 10 mg 10 mg PO DAILY 10/18/24 02/17/25 tablet fluticasone propionate 115 2 inh inhalation BID 10/18/24 02/17/25 mcg-salmeterol 21 mcg/actuation HFA inhaler (Advair HFA) spironolactone 25 mg tablet 12.5 mg PO DAILY 10/18/24 02/17/25 Previous Rx's ?Medication ?Instructions ?Recorded albuterol sulfate 90 mcg/actuation 2 inh inhalation Q6H PRN shortness 12/25/23 aerosol inhaler (Ventolin HFA) of breath or wheezing #6.7 grams carvedilol 12.5 mg tablet (Coreg) 12.5 mg PO BID #60 tabs 10/13/24 fluticasone propionate 50 2 spray intranasal QD #16 grams 10/13/24 mcg/actuation nasal spray,suspension montelukast 10 mg tablet 10 mg PO DAILY #30 tabs 10/13/24 (Singulair) fluconazole 100 mg tablet 100 mg PO QD #10 tabs 10/21/24 prednisone 20 mg tablet 20 mg PO BID 5 days #10 tabs 02/17/25 benzonatate 100 mg capsule 100 mg PO TID PRN cough #20 caps 04/15/25 Allergies Allergy/AdvReac Type Severity Reaction Status Date / Time codeine AdvReac Intermediate Hallucinati Verified 04/15/25 08:56 ng Opioid HPI Opioid Management Most Recent Opioid Data: Last Pain Scale 5 02/24/25, 12:10 Last ORT Total Score 0 10/18/24, 23:12 Last ORT Risk Category Low Risk 10/18/24, 23:12 Review of Systems ROS Narrative A ten point review of systems is negative except as noted above. [facility] Medical History Pneumonia due to COVID-19 virus ?U07.1 - COVID-19 (ICD-10) ?J12.82 - Pneumonia due to coronavirus disease 2019 (ICD-10) COVID-19 ?U07.1 - COVID-19 (ICD-10) Acute on chronic congestive heart failure ?I50.9 - Heart failure, unspecified (ICD-10) COPD exacerbation ?J44.1 - Chronic obstructive pulmonary disease with (acute) exacerbation (ICD-10) Congestive heart failure ?I50.9 - Heart failure, unspecified (ICD-10) BPH (benign prostatic hyperplasia) ?N40.0 - Benign prostatic hyperplasia without lower urinary tract symptoms (ICD-10) CAD (coronary artery disease) ?I25.10 - Atherosclerotic heart disease of [place] coronary artery without angina pectoris (ICD-10) GERD (gastroesophageal reflux disease) ?K21.9 - Gastro-esophageal reflux disease without esophagitis (ICD-10) Hypertension ?I10 - Essential (primary) hypertension (ICD-10) COPD (chronic obstructive pulmonary disease) ?J44.9 - Chronic obstructive pulmonary disease, unspecified (ICD-10) Bronchitis ?J40 - Bronchitis, not specified as acute or chronic (ICD-10) Emphysema of lung ?J43.9 - Emphysema, unspecified (ICD-10) Heart attack ?I21.9 - Acute myocardial infarction, unspecified (ICD-10) COPD exacerbation ?J44.1 - Chronic obstructive pulmonary disease with (acute) exacerbation (ICD-10) COVID-19 ?U07.1 - COVID-19 (ICD-10) Surgical History H/O sinus surgery ?Z98.890 - Other specified postprocedural states (ICD-10) H/O shoulder surgery ?Z98.890 - Other specified postprocedural states (ICD-10) H/O heart artery stent ?Z95.5 - Presence of coronary angioplasty implant and graft (ICD-10) Family History Aunt Family history of cancer Mother Family history of diabetes mellitus Brother Family history of hypertension Father Family history of hypertension Social History Within the past year, how often did you have a drink containing alcohol: never Score interpretation: A score less than 4 is consistent with normal alcohol consumption. 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 Known occupational exposures/hazards: No Highest level of school completed/degree received: high school graduate Are you now , , , , never or living with a partner: In a typical week, how many times do you talk on the telephone with family, friends, or neighbors: 3 or more times per week How often do you get together with friends or relatives: 3 or more times per week How often do you attend jain or roman catholic services: never Little interest or pleasure in doing things: not at all Feeling down, depressed, or hopeless: not at all Feel stressed/tense/nervous/anxious/difficulty sleeping: not at all Do you think of yourself as: straight/heterosexual Gender Identity: male Exam Narrative Exam Narrative: Nurses note and vital signs reviewed General:The patient appears in no acute respiratory distress. He coughs occasionally. Skin:Warm, dry, no pallor noted.There is no rash noted. Head:Normocephalic, atraumatic Eye: Normal conjunctiva, no drainage Ears, Nose, Mouth, and Throat: oral mucosa is moist. Nares patent. Cardiovascular:Regular Rate and Rhythm Respiratory:Patient is in no distress, no accessory muscle use, he coughs when taking in a deep breath. Back:non-tender GI: Soft and nontender Musculoskeletal: 1+ edema present bilaterally Neurological:A&O, normal speech Psychiatric:Cooperative Constitutional Vital Signs, click to edit/add: Last Vital Signs Temp 97.5 F L 04/15/25 08:57 Pulse 80 04/15/25 12:20 Resp 19 04/15/25 12:20 BP 133/93 H 04/15/25 12:16 Pulse Ox 98 04/15/25 12:20 O2 Del Method Room Air 04/15/25 08:57 Course Vital Signs Vital signs: Vital Signs Temperature 97.5 F L 04/15/25 08:57 Pulse Rate 88 04/15/25 08:57 Respiratory Rate 22 H 04/15/25 08:57 Blood Pressure 157/82 H 04/15/25 08:57 Pulse Oximetry 90 L 04/15/25 08:57 Oxygen Delivery Method Room Air 04/15/25 08:57 Temperature 97.5 F L 04/15/25 08:57 Pulse Rate 80 04/15/25 12:20 Respiratory Rate 19 04/15/25 12:20 Blood Pressure 133/93 H 04/15/25 12:16 Pulse Oximetry 98 04/15/25 12:20 Oxygen Delivery Method Room Air 04/15/25 08:57 Medical Decision Making MDM Narrative Medical decision making narrative: Extensive workup is negative including CTA of his chest. No evidence of PE or CHF or NJ. 2 sets of troponin are negative. He has had a cough recently and I suspect that he has a viral URI. He does not require antibiotics or admission to the hospital. Treatment diagnosis and follow-up were discussed with the patient. Differential Diagnosis Differential Diagnosis: CHF, NJ, PE, pneumothorax, pneumonia Lab Data Lab results reviewed: Yes I reviewed the patient's lab results Labs: Lab Results 04/15/25 04/15/25 04/15/25 Range/Units 09:10 09:56 10:09 WBC 10.5 (4.0-11.0) 10^3/uL RBC 5.24 (4.70-6.10) 10^6/uL Hgb 14.4 (14.0-18.0) g/dL Hct 43.2 (42.0-54.0) % MCV 82.4 (80.0-94.0) fL MCH 27.5 (25.9-34.0) pg MCHC 33.3 (29.9-35.2) g/dL RDW 15.6 H (11.0-15.0) % Plt Count 245 (150-450) 10^3/uL MPV 9.7 (9.5-13.5) fL Neut % (Auto) 72.4 (43.0-75.0) % Lymph % (Auto) 11.3 L (20.5-60.0) % [place] % (Auto) 10.0 (1.7-12.0) % Eos % (Auto) 5.5 (0.9-7.0) % Baso % (Auto) 0.6 (0.2-2.0) % Neut # (Auto) 7.6 H (1.4-6.5) 10^3/uL Lymph # (Auto) 1.2 (1.2-3.8) 10^3/uL [place] # (Auto) 1.1 H (0.3-0.8) 10^3/uL Eos # (Auto) 0.6 (0.0-0.7) 10^3/uL Baso # (Auto) 0.1 (0.0-0.1) 10^3/uL Abs Immat Gran (auto) 0.02 (0.00-0.03) 10^3/uL Imm/Tot Granulo (auto) 0.2 (0.0-0.5) % D-Dimer 0.66 H* (<=0.59) mg/L FEU Sodium 133 L (136-145) mmol/L Potassium 3.9 (3.5-5.1) mmol/L Chloride 100 (98-107) mmol/L Carbon Dioxide 28.4 (21.0-32.0) mmol/L Anion Gap 8.5 BUN 12.0 (7.0-18.0) mg/dL Creatinine 0.95 (0.70-1.30) mg/dL Est GFR ( Amer) >60 (>=60 mL/min/1.73m^2) Est GFR (Non-Af Amer) >60 (>=60 mL/min/1.73m^2) BUN/Creatinine Ratio 12.6 Glucose 121 H (74-106) mg/dL Calcium 8.9 (8.5-10.1) mg/dL Troponin I High Sens 24.2 24.5 (4.0-76.1) pg/mL NT-Pro-B Natriuret Pep 1109.0 H (<=900.0) pg/mL Urine Color Lt. yellow (YELLOW) Urine Clarity Clear (CLEAR) Urine pH 6.5 (5.0-9.0) Ur Specific [place] <=1.005 A (1.005-1.025) Urine Protein Negative (NEG/TRACE) mg/dL Urine Glucose (UA) Negative (NEGATIVE) mg/dL Urine Ketones Negative (NEGATIVE) mg/dL Urine Occult Blood Negative (NEGATIVE) Urine Nitrite Negative (NEGATIVE) Urine Bilirubin Negative (NEGATIVE) Urine Urobilinogen 0.2 (0.2-1.0) EU/dL Ur Leukocyte Esterase Negative (NEGATIVE) Influenza Type A Ag Negative Influenza Type B Ag Negative SARS-CoV-2 Ag (CV2AG) Negative (NEGATIVE) Imaging Data Chest x-ray: Radiologist's impression: ITS Impressions Chest X-Ray 04/15/25 09:15 IMPRESSION: CHRONIC CHANGES. NO ACUTE FINDINGS Impression dictated by: Lisa Barillas M.D. 04/15/2025 9:38 AM Dictation Location: [place] Electronically authenticated by: [id number] Y Date: 04/15/2025 09:38 Chest CTA 04/15/25 11:23 IMPRESSION: NO CT EVIDENCE OF PULMONARY EMBOLISM. BORDERLINE CARDIOMEGALY. ENLARGING MEDIASTINAL AND HILAR LYMPH NODES. CONTINUED INTERSTITIAL LUNG DISEASE. SIGNIFICANT INTERVAL IMPROVEMENT OF GROUNDGLASS OPACITIES. TINY DEVELOPING PLEURAL EFFUSIONS. Impression dictated by: Lisa Barillas M.D. 04/15/2025 12:07 PM Dictation Location: [place] Electronically authenticated by: [id number] Y Date: 04/15/2025 12:07 ECG Data Attestation: I personally reviewed and interpreted this ECG as follows: (EKG on my interpretation shows sinus rhythm with rate of 81 and no acute change) Discharge Plan Discharge Chief Complaint: Shortness of Breath/Dyspnea Clinical Impression: Viral URI Patient Disposition: Home, Self-Care Time of Disposition Decision: 12:30 Condition: Good Mode of Transportation: Private Vehicle Prescriptions / Home Meds: New benzonatate 100 mg capsule 100 mg PO TID PRN (Reason: cough) Qty: 20 0RF No Action albuterol sulfate [Ventolin HFA] 90 mcg/actuation HFA aerosol inhaler 2 inh inhalation Q6H PRN (Reason: shortness of breath or wheezing) Qty: 6.7 0RF tamsulosin 0.4 mg capsule 0.8 mg PO .qhs furosemide [Lasix] 40 mg tablet 40 mg PO DAILY fluticasone propionate 50 mcg/actuation [place],Suspension 2 spray intranasal QD Qty: 16 11RF montelukast [Singulair] 10 mg tablet 10 mg PO DAILY Qty: 30 11RF carvedilol [Coreg] 12.5 mg tablet 12.5 mg PO BID Qty: 60 11RF Rx Instructions: must administer with a meal/food spironolactone 25 mg tablet 12.5 mg PO DAILY fluticasone propion-salmeterol [Advair HFA] 115-21 mcg/actuation HFA aerosol inhaler 2 inh inhalation BID dapagliflozin propanediol 10 mg tablet 10 mg PO DAILY fluconazole 100 mg Tablet 100 mg PO QD Qty: 10 0RF prednisone 20 mg tablet 20 mg PO BID 5 Days Qty: 10 0RF Print Language: Nepali Instructions: Upper Respiratory Infection (ED) Referrals: Torres Klein MD [Primary Care Provider, Family Practice] - 1 week
[2025-04-15 09:25] LABS: Hematocrit 43.2 % (42.0-54.0); Hemoglobin 14.4 g/dL (14.0-18.0); Immature Granulocytes Abs Auto 0.02 10^3/uL (0.00-0.03); Immature Granulocytes Pct Auto 0.2 % (0.0-0.5); Lymphocytes Absolute Auto 1.2 10^3/uL (1.2-3.8); Mean Corpuscular HGB Conc 33.3 g/dL (29.9-35.2); Mean Corpuscular Hemoglobin 27.5 pg (25.9-34.0); Mean Corpuscular Volume 82.4 fL (80.0-94.0); Platelet Count 245 10^3/uL (150-450); Red Blood Count 5.24 10^6/uL (4.70-6.10); White Blood Count 10.5 10^3/uL (4.0-11.0)
--- OUTSIDE RECORDS SUMMARY | 2025-04-15 09:25 | XMS_ITS | CCD ---
Author Organization [facility] Care Team Providers Care Make Up Editor Name Role Phone Sera Flower Unavailable Unavailable Unavailable Unavailable Primary Care Provider Unavailabl e Unavailable Unavailable DEANDRA BENDER Attending Unavailable DEANDRA BENDER Referring Unavailable MAU RANDLE Attending Unavailable DEADNRA BENDER Attending Unavailable DEANDRA BENDER Attending Unavailable DEANDRA BENDER Referring Unavailable MD Sera Flower Primary Care Provider [phone] MD Sera Flower Other Provider MD Rene [...] Sera Flower MD Primary Care Provider Indira RN, Tootie Unavailable Matthew SHELLEY, Rene Porter Unavailable Indira CAMACHO, Tootie Unavailable Sera Flower Primary Care Physician Unavailab moisés Carreon RN, Orquidea Unavailable [facility] Orquidea CAMACHO Unavailable Unavailable Rene Cortez MD Unavailable [phone] Eddie SHELLEY, Chalino P Unavailable [phone] John Baptiste MD Unavailable [phone] Gregory ROLLER SETTER, Gurjit Calabrese Unavailable RISALITI, SALLY R Attending Unavailable CHING, SERA L Referring Unavailable PETITTI, MARYBETH A Attending Unavailable RISALITI, SALLY R Referring Unavailable DIDION, BENJY L Attending Unavailable RISALITI, SALLY R Attending Unavailable CHING, SERA L Referring Unavailable CHING, SERA Arlene Attending Unavailable HILL, SERA L Referring Unavailable RISALITI, SALLY R Attending Unavailable GURJIT BUSBY Attending Unavailable Sera Flower MD Primary Care Provider Ricardo Aguero DO Admit Provider Orquidea Sapp RN Other Provider Unavailable Keila Davis DO Other Provider Rene Cortez MD Other Provider Tank Daley MD Other Provider Charito Rodriguez MD Other Provider Kannan Mendez MD Other Provider Kiya Richmond APRN Other Provider Katia Mckeon MD Other Provider Sha SHELLEY, Katie Finley Other Provider Mirian Huffman MD Other Provider [facility] Other Provider Vincenzo Caraballo DO Attending Provider Torres Pate MD Primary Care Provider [phone] Kiya Richmond APRN Attending Provider Torres Pate MD Primary Care Provider RENE CORTEZ Attending Unavailable RENE CORTEZ Referring Unavailable SERA FLOWER Primary Care Unavailable KIYA RICHMOND Attending Unavailable TORRES PATE Primary Care Unavailable NUBIA COOK Attending Unavailab moisés COOK, NUBIA Esquivel Attending Unavailab SERA Dexter Referring Unavailable NUBIA COOK Admitting Unavailab moisés COOK, NUBIA Esquivel Attending Unavailab moisés COOK, NUBIA Esquivel Attending Unavailab Kiya Bellamy Attending Unavailable Torres Pate Primary Care Unavailable Kiya Richmodn Admitting Unavailable Basilio, Kiya Sandoval Attending Unavailable Torres Pate Primary Care Unavailable [...] Balder[employer] Consulting Unavailable Joanne Edouard Consulting Unavailable SU COOK Attending Unavailable SU COOK Admitting Unavailable John BAPTISTE Attending Unavailable COOK, John Hauser Attending Unavailable OrYasemin esqueda Attending Unavailable COOK, John P Attending Unavailable COOK, John P Referring Unavailable COOK, John P Attending Unavailable COOK, John P Attending Unavailable COOK, John P Attending Unavailable COOK, John P Admitting Unavailable COOK, John P Referring Unavailable COOK, John P Attending Unavailable ELTAHAWY, EHAB Attending Unavailable MOY, EHAB Attending Unavailable Sera Flower MD Unavailable Sera Flower MD Primary Care Provider Indira CAMACHO, Tootie Unavailable [phone] Rene Cortez MD Unavailable Lauri CAMACHO, Orquidea Unavailable [phone] [facility] RN, Orquidea Unavailable Chalino Phoenix DO Unavailable John Baptiste MD Unavailable Unallocated Gita SHELLEY Provider Primary Care Provi gonzales Torres Pate MD Primary Care Provider Allergies Allergy ClassificationReported Allergen(s)Allergy TypeDate of OnsetReaction(s) Facility (20 sources)Codeine; Translations: [codeine]Drug Isiyuqh52-41-1995Sjmflzgm, Unknown, Nausea And Vomiting, Other, Unknown (qualifier value)[facility] (7 sources)Codeine / guaiFENesin; Translations: [CODEINE-GUAIFENESIN]Drug [id number]: See CommentsJ.W. [facility] (7 sources)guaiFENesin; Translations: [GUAIFENESIN]Drug [id number]: See CommentsJ.W. [facility] (20 sources)guaiFENesinDrug [id number] (1 source)CodeineDrug Gmlkhzd28-19-5048UmxakswznProm[facility] Medications Current Medications MedicationDrug Class(es)DatesSig (Normalized)Sig (Original)acetaminophen 325 mg / HYDROcodone bitartrate 5 mg oral tablet (1 source)Opioid AgonistStart: 75-50-8968yylq 1 tablet by mouth every hourNorco 325 mg-5 mg oral tablet See Instructions, 1 tab(s), Refill(s) 0, Take 1 hour prior to your procedure, [facility], 172, cm, 06/23/24 15:02:00 EST, Height/Length Dosing, 111.5, kg, 06/23/24 15:02:00 EST, Weight Dosing Start Date: 07/29/24 Status: Orderedacetaminophen 325 mg / traMADol hydrochloride 37.5 mg oral tablet (1 source)Opioid AgonistStart: 47-84-4846Gmswzaxe 325 mg-37.5 mg Tab See Instructions, 20 tab(s), Refill(s) 0, take 1-2 every 6 hrs prn for pain - following procedure, [facility], 172, cm, 06/23/24 15:02:00 EST, Height/Length Dosing, 111.5, kg, 06/23/24 15:02:00 EST, Weight Dosing Start Date: 07/29/24 Status: [id number] 200 actuat albuterol 0.09 mg/actuat metered dose inhaler (20 sources)beta2-Adrenergic AgonistStart: 28-50-0275riki 2 puff(s) by inhalation every six hours as needed for wheezingStart: 91-02-7868hcfjkltxd Start Date: 04/16/24 Status: Ordered Repeat number: 1Start: 15-98-3980fzrgtmrxj Start Date: 04/16/24 Status: OrderedStart: 95-64-6391dsuaroujx (2.5 MG/3ML) 0.083% nebulizer solution Indications: Chronic obstructive pulmonary disease, unspecified COPD type (HCC) Take 3 mL (2.5 mg) by nebulization every 8 (eight) hours 810 mL 3 07/11/2023 ActiveStart: 86-72-3062zqrnidkyl (2.5 MG/3ML) 0.083% nebulizer solution Indications: Chronic obstructive pulmonary disease, unspecified COPD type (CMS/HCC) Take 3 mL (2.5 mg) by nebulization every 8 (eight) hours 75 mL 3 06/21/2023 ActiveStart: 06-14-2023 End: 74-20-0386rvwk 2.5 mg by inhalation every four to six hours as needed for wheezingAlbuterol Sulfate 2.5 mg/0.5 mL solution for nebulization Discontinued 2.5 MG INHALATION EVERY 4-6 HOURS as needed for shortness of breath or wheezing June 14, 2023 1:00am October 17, 2024 2:00amStart: 19-23-6622wqca 2 puff(s) by inhalation every six hours for wheezingalbuterol HFA 90 mcg/act inhaler Indications: Chronic obstructive pulmonary disease, unspecified COPD type (HCC) Inhale 2 puffs every 6 (six) hours if needed for wheezing or shortness of breath 18 g 3 07/09/2023 ActiveStart: 04-26-2018 End: 75-77-2733jzat 2.5 mg by inhalation every four hours as needed for wheezing Albuterol Sulfate 2.5 mg /3 mL (0.083 %) solution for nebulization Discontinued 2.5 MG INHALATION Q4H as needed for shortness of breath or wheezing April 26, 2018 1:00am July 28, 2019 7:51amStart: 09-19-2017 End: 23-99-1379kjfc 2.5 mg by inhalation every six hours as needed for wheezing Albuterol Sulfate 2.5 mg /3 mL (0.083 %) solution for nebulization Discontinued 2.5 MG INHALATION Q6H as needed for shortness of breath or wheezing September 19, 2017 12:00am October 17, 2024 2:00amalbuterol 0.833 mg/ml / ipratropium bromide 0.167 mg/ml inhalation solution (3 sources)Anticholinergic, beta2-Adrenergic AgonistStart: 40-98-6907gxeo 3 mL by inhalation every six hours as needed for wheezingamoxicillin 875 mg / clavulanate 125 mg oral tablet (2 sources)Penicillin-class AntibacterialStart: 05-07-2024 End: 77-92-8301zncu 1 tablet by mouth in the morningamoxicillin-clavulanate (Augmentin) 875-125 MG tablet Indications: Non-recurrent acute serous otitis media of right ear Take 1 tablet (875 mg) by mouth in the morning and 1 tablet (875 mg) before bedtime. Do all this for 7 days. 14 tablet 05/07/2024 05/14/2024 Activeascorbic acid 60 mg / beta carotene 5000 unt / copper sulfate 40 mg / dl- alpha tocopheryl acetate 30 unt / sodium selenite 0.04 mg / zinc oxide 40 mg oral tablet (20 sources)Vitamin Ctake 1 tablet by mouth in the morningMultiple Vitamin (Multivitamin Adult) tablet Take 1 tablet by mouth in the morning. Activeaspirin 81 mg delayed release oral tablet (20 sources)Platelet Aggregation Inhibitor, Nonsteroidal Anti-inflammatory Drug Start: 95-96-5166vtyu 81 mg by mouth once dailyAspirin Active 81 MG PO Daily July 28, 2019 12:00amStart: 07-28-2019 End: 39-44-3756stqz 1 tablet by mouth once dailyAspirin 81 mg Tablet,Chewable Discontinued 81 MG PO Daily July 28, 2019 1:00am October 17, 2024 2:00amStart: 06-07-2016 End: 91-80-8630jzgn 1 tablet by mouth once dailyaspirin 81 mg EC tablet Indications: Ischemic cardiomyopathy Take 1 tablet (81 mg) by mouth once daily. 30 tablet 11 10/24/2024 10/24/2025 ActiveComment on above:81 mg.atorvastatin 40 mg oral tablet (20 sources)HMG-CoA Reductase InhibitorStart: 10-11-2020 End: 81-36-6563lilk 1 tablet by mouth once dailyatorvastatin (Lipitor) 40 mg tablet Take 1 tablet (40 mg) by mouth once daily. 10/11/2020 10/18/2023 Discontinued (Therapy completed)Start: 04-26-2018 End: 57-03-0344Qaqrhmyncado (Lipitor) 80 mg tablet Discontinued April 26, 2018 1:00am July 28, 2019 7:51amStart: 04-26-2018 End: 01-65-2066Zqmivifqnfxp (Lipitor) 80 mg tablet Discontinued TABLET April 26, 2018 1:00am July 28, 2019 7:51ambenoxinate hydrochloride 4 mg/ml / fluorescein sodium 2.5 mg/ml ophthalmic solution (1 source)Diagnostic DyeStart: 05-01-2022 End: 43-49-3607hdqznawmsvd-benoxinate 0.25-0.4 % 1 Drop (FLURESS)benzonatate 100 mg oral capsule (18 sources)Non-narcotic AntitussiveStart: 02-21-2024 End: 03-32-1601eaxe 1 capsule by mouth three times daily as needed for cough benzonatate (Tessalon) 100 MG capsule Indications: Acute cough Take 1 capsule (100 mg) by mouth 3 (three) times a day as needed for cough Do not crush or chew. 30 capsule 1 02/21/2024 07/02/2024 DiscontinuedStart: 25-25-9309rols 1 capsule by mouth three times daily as needed for coughStart: 60-47-7495orgz 1 capsule by mouth three times daily for coughbenzonatate (TESSALON PERLE) 100 mg capsule take 1 capsule by mouth three times a day if needed forcough SWALLOW WHOLE 0 01/17/2022 ActiveComment on above:take 1 capsule by mouth three times a day if needed for cough SWALLOW MFTPT959 actuat budesonide 0.16 mg/actuat / formoterol fumarate 0.0048 mg/actuat / glycopyrrolate 0.009 mg/actuat metered dose inhaler (7 sources)Corticosteroid, beta2-Adrenergic AgonistStart: 05-07-2024 End: 73-21-2201gjge 2 puff(s) by mouth twice dailyBreztri Aerosphere 160-9-4.8 MCG/ACT aerosol INHALE 2 PUFFS BY MOUTH 2 TIMES A DAY, RINSE MOUTH AFTER USE 05/07/2024 07/02/2024 Discontinued (Therapy completed)Start: 09-05-2023 End: 16-52-6688Qyakcxi Aerosphere 160-9-4.8 MCG/ACT aerosol 09/05/2023 02/27/2024 Discontinuedcarvedilol 6.25 mg oral tablet (20 sources)alpha-Adrenergic Ne, beta-Adrenergic BlockerStart: 10-24-2024 End: 53-15-7727vnzg 0.5 tablet by mouth twice dailycarvedilol (Coreg) 6.25 mg tablet Indications: Ischemic cardiomyopathy Take 0.5 tablets (3.125 mg) by mouth 2 times daily (morning and late afternoon). 90 tablet 3 10/24/2024 10/24/2025 ActiveStart: 06-27-2023 End: 18-84-5495twhh 1 tablet by mouth twice dailycarvedilol 6.25 mg Tab 6.25 mg = 1 tab(s), Oral, BID Start Date: 04/16/24 Status: Ordered Repeat number: 1 Start: 75-62-8023uxkalvkfut (COREG) 6.25 mg tabletStart: 06-28-2020 End: 35-03-9432fpvm 0.5 tablet by mouth twice dailycarvedilol (Coreg) 12.5 mg tablet Take 0.5 tablets (6.25 mg) by mouth 2 times a day. 06/28/2020 05/15/2024 Discontinued (Therapy completed)Start: 84-73-9471cnng 1 tablet by mouth twice dailycetirizine hydrochloride 10 mg oral tablet (4 sources)Histamine-1 Receptor AntagonistStart: 44-38-8951rsyv 1 tablet by mouth once dailycetirizine (ZyrTEC) 10 mg chewable tablet Chew 1 tablet (10 mg) once daily. Activeciprofloxacin 500 mg oral tablet (8 sources)Quinolone AntimicrobialStart: 98-86-9344tvgbjdogarckv 500 mg Tab See Instructions, Start 3 days prior to procedure - twice a day for 7 days, # 14 tab(s), Refills(s) 0, Pharmacy: [id number], 172, cm, 06/23/24 15:02:00 EST, Height/Length Dosing, 111.5, kg, 06/23/24 15:02:00 EST, Weight Dosing Start Date: 07/29/24 Status: OrderedStart: 04-16-2024 End: 93-43-5549hbpm 1 tablet by mouth every twelve hoursCipro 500 mg Tab 500 mg = 1 tab(s), Oral, q12hr, X 14 day(s), # 28 tab(s), Refills(s) 0, Pharmacy: [facility], 172, cm, 04/16/24 9:51:00 EST, Height/Length Dosing, 108.1, kg, 04/16/24 9:51:00 EST, Weight Dosing Start Date: 04/16/24 Stop Date: 04/30/24 Status: Ordereddapagliflozin 10 mg oral tablet (4 sources)Sodium-Glucose Cotransporter 2 InhibitorStart: 13-39-7101omhu 1 tablet by mouth once daily End: 00-94-7261lzho 1 tablet by mouth every twenty-four hoursdapagliflozin propanediol (Farxiga) 10 mg tablet Take 1 tablet (10 mg) by mouth once every 24 hours. 10/24/2024 Discontinued (Reorder)diazePAM 10 mg oral tablet (1 source)BenzodiazepineStart: 46-09-2303Oodfcp 10 mg Tab See Instructions, Take 1 hr prior to procedure, # 1 tab(s), Refills(s) 0, Pharmacy: [facility], 172, cm, 06/23/24 15:02:00 EST, Height/Length Dosing, 111.5, kg, 06/23/24 15:02:00 EST, Weight Dosing Start Date: 07/29/24 Status: Orderedempagliflozin 10 mg oral tablet (1 source)Sodium-Glucose Cotransporter 2 InhibitorStart: 10-24-2024 End: 35-73-7308aaza 1 tablet by mouth once dailyempagliflozin (Jardiance) 10 mg tablet Indications: Ischemic cardiomyopathy Take 1 tablet (10 mg) by mouth once daily. 30 tablet 11 10/24/2024 11/23/2024 ActiveFish Oils (20 sources)take 1 capsule by mouth once dailyomega-3 (fish oil) 1200 MG capsule Take 1 capsule by mouth 1 (one) time each day. Activetake 1 capsule by mouth once dailyomega-3 (fish oil) 1200 MG capsule Take 1 capsule by mouth 1 (one) time each day. 0 ActiveFish Oil 1200 MG Oral Capsule TAKE DIRECTED. Quantity: 0 Refills: 0 Ordered: 07-Sep-2022 DO Activefluconazole 100 mg oral tablet (1 source)Azole Antifungaltake 1 tablet by mouth once dailyfluconazole (Diflucan) 100 mg tablet Take 1 tablet (100 mg) by mouth once daily. Active fluticasone propionate 0.05 mg/actuat metered dose nasal spray (20 sources)CorticosteroidStart: 55-03-6844Ixcxg: 94-92-6279mitb 2 spray(s) nasal route once dailyfluticasone (Flonase) 50 MCG/ACT nasal spray Administer 2 sprays into each nostril Daily 07/25/2023ctiveFluticasone Propion-Salmeterol (8 sources)Corticosteroid, beta2-Adrenergic AgonistStart: 87-48-6123wkmu 1 puff(s) by inhalation twice dailyStart: 91-65-9360irbm 1 puff(s) by inhalation twice dailyFluticasone Propion-Salmeterol (Advair Hfa) 115-21 mcg/actuation HFA aerosol inhaler Active 2 PUFF INHALATION Twice daily October 17, 2024 12:00am Start: 88-97-6595bzkkxdsysch-salmeterol HFA (ADVAIR) 115-21 mcg/actuation inhalerStart: 46-26-2325vlpuvvwdnjt-salmeterol HFA (ADVAIR) 115-21 mcg/actuation inhalertake 2 puff(s) by mouth twice dailyfluticasone propion-salmeteroL (Advair HFA) 230-21 mcg/actuation inhaler Inhale 2 puffs 2 times a day. Rinse mouth with water after use to reduce aftertaste and incidence of candidiasis. Do not swallow. Activetake 2 puff(s) by inhalation in the morningAdvair HFA 115-21 MCG/ACT inhaler Inhale 2 puffs in the morning and 2 puffs before bedtime. 0 Hnldab32 actuat fluticasone furoate 0.1 mg/actuat / umeclidinium 0.0625 mg/actuat / vilanterol 0.025 mg/actuat dry powder inhaler (16 sources)Anticholinergic, Corticosteroid, beta2-Adrenergic AgonistStart: 47-04-2209mjyb 1 puff(s) by inhalation once wjqvkLdttijrdqrm-Mubadjesw-Xdannh (Trelegy Ellipta) 100-62.5-25 MCG/ACT aerosol powder Indications: Chronic obstructive pulmonary disease, unspecified COPD type ([facility]) Inhale 1 puff Daily 1 each 08/04/2024 ActiveStart: 88-96-3413ioki 1 puff(s) by inhalation once byoopBuaokkovydw-Hhhqvhxgy-Xlatak (Trelegy Ellipta) 100-62.5-25 MCG/ACT aerosol powder Inhale 1 puff 1 (one) time each day 07/25/2023 Activefurosemide 40 mg oral tablet (18 sources)Loop DiureticStart: 64-72-2599qmuc 1 tablet by mouth once daily Start: 01-23-2024 End: 31-54-8075ndrs 1 tablet by mouth once dailyfurosemide (Lasix) 40 MG tablet Indications: Essential hypertension ([facility]) Take 1 tablet (40 mg)by mouth Daily 90 tablet 2 01/23/2024 07/02/2024 Discontinued (Therapy completed) hydrocortisone 25 mg/ml topical cream (4 sources)CorticosteroidStart: 19-84-7600alxqyivmmetatb 2.5 % cream Indications: Erythema intertrigo Apply thin layer to affected areas on groin up once or twice daily prn itching. Hold if not itchy. 28 g 07/17/2024 Activeiv contrast (will be provided with radiology test) (4 sources)Start: 06-21-2022 End: 07-97-5002dvjoke 1 dose intravenously onceiv contrast (will be provided with radiology test) [...] guidelines link 1 Each 0 06/21/2022 06/22/2022 ActiveStart: 06-21-2022 End: 18-98-2915ns contrast (will be provided with radiology test) MRI Neck Inject, intravenously, once for 1 dose.No IV access, insert saline lock prior to the beginning of sedation, infusion, injection of imagingexam. Discontinue saline lock post exam. If Pt. has a central line or IVAD, may access for administration according to line specific nursing protocol. Once exam is complete flush line and de-access according to line specific nursing protocol in the MR contrast administration guidelines link. 1 Each0 06/21/2022 06/22/2022 ActiveComment on above:MRI Brain Inject, intravenously, once for 1 dose.No IV access, insert saline lock prior to beginning of sedation, infusion, injection of imaging exam.Discontinue saline lock post exam. If Pt. has a central line or IVAD, may access for administration according to line specific nursing protocol.Once exam is complete flush line and de-access according to line specific nursing protocol in the MR contrast administration guidelines linkMRI Neck Inject, intravenously, once for 1 dose. [...] protocol in the MR contrast administration guidelines link.losartan potassium 50 mg oral tablet (20 sources)Angiotensin 2 Receptor BlockerStart: 09-07-2022 End: 19-44-0944tsoy 1 tablet by mouth once dailylosartan 50 mg Tab 50 mg = 1 tab(s), Oral, Daily Start Date: 04/16/24 Status: Ordered Repeat number: 1Start: 08-15-2021 End: 46-29-3630vnbg 1 tablet by mouth twice dailylosartan (Cozaar) 25 mg tablet Take 1 tablet (25 mg) by mouth 2 times a day. 09/05/2021 10/18/2023 Discontinued (Dose adjustment)Start: 04-26-2018 End: 50-94-1218ewae 1 tablet by mouth once dailyLosartan 25 mg tablet Discontinued 25 MG PO Daily April 26, 2018 1:00am October 17, 2024 2:00am magnesium oxide 250 mg oral tablet (20 sources)take 1 tablet by mouth in the morningmagnesium oxide (Mag-Ox) 250 MG tablet Take 250 mg by mouth in the morning. Activemontelukast 10 mg oral tablet (5 sources)Leukotriene Receptor AntagonistStart: 14-80-1984gmhemvfmnlp 10 mg Tab Refills(s) 0 Start Date: 12/02/24 Status: Ordered Repeat number: 1Start: 65-72-4464mlln 1 tablet by mouth once dailyMultivitamin preparation (6 sources)Start: 36-64-0107oiyy 1 tablet by mouth once dailyMultivitamin Active 1 TAB PO Daily July 28, 2019 12:00amStart: 89-18-7892tyvf 1 tablet by mouth once dailyMultivitamin Active 1 TAB PO Daily July 28, 2019 1:00amStart: 95-78-8408kwjw 1 tablet by mouth once dailymultivitamin (MULTIPLE VITAMINS ORAL) 1 tablet once daily. 08/24/2006 ActiveStart: 48-88-0660owmz 1 tablet by mouth once dailymultivitamin (MULTIPLE VITAMINS ORAL) 1 tablet once daily. 0 08/24/2006 Activenitroglycerin 0.4 mg sublingual tablet (20 sources)Nitrate VasodilatorStart: 05-15-2024 End: 92-45-8154lerhxtdzhtxtp (Nitrostat) 0.4 mg SL tablet Indications: Coronary artery disease involving [place] coronary artery of [place] heart without angina pectoris Place 1 tablet (0.4 mg) under the tongue every5 minutes if needed for chest pain. May repeat dose every 5 minutes for up to 3 doses total. 25 tablet 11 05/15/2024 ActiveComment on above:Dissolve under the tongue.omega-3 fatty acids-fish oil (One-Per-Day [place]-3) 684-1,200 mg capsule (4 sources)omega-3 fatty acids-fish oil (One-Per-Day [place]-3) 684-1,200 mg capsule Take as directed Activeomega-3 fatty acids-fish oil (One-Per-Day [place]- 3) 684-1,200 mg capsule Take as directed 0 Activeomeprazole 20 mg delayed release oral capsule (20 sources)Proton Pump InhibitorStart: 56-98-2044rcem 1 capsule by mouth once dailyomeprazole 20 mg Cap-DR 20 mg = 1 cap(s), Oral, Daily Start Date: 04/16/24 Status: Ordered Repeat number: 1Start: 04-26-2018 End: 74-66-1520htsq 1 capsule by mouth once dailyStart: 55-56-2022hfia 20 mg by mouth once dailyOmeprazole Active 20 MG PO Daily April 26, 2018 12:00am oxybutynin chloride 5 mg oral tablet (1 source)Cholinergic Muscarinic AntagonistStart: 91-66-9485uigk 1 tablet by mouth twice dailyoxybutynin 5 mg Tab See Instructions, 1 tab(s) Oral bid after procedure, # 10 tab(s), Refills(s) 0,Pharmacy: [facility], 172, cm, 06/23/24 15:02:00 EST, Height/Length Dosing, 111.5, kg, 06/23/24 15:02:00 EST, Weight Dosing Start Date: 07/29/24 Status: Orderedphenylephrine hydrochloride 25 mg/ml ophthalmic solution (1 source)alpha-1 Adrenergic AgonistStart: 05-01-2022 End: 04-99-0589GMKJXTgfsnaoy 2.5 % 1 Drop (AK-DILATE, ATIF-SYNEPHRINE) rosuvastatin 40 mg oral capsule (20 sources)HMG-CoA Reductase InhibitorStart: 57-09-4868qjmr 40 mg by mouth once dailyrosuvastatin 40 mg, Oral, Daily Start Date: 04/16/24 Status: Ordered Repeat number: 1Start: 10-18-2023 End: 97-57-4205czyz 1 tablet by mouth in the morningrosuvastatin (Crestor) 40 MG tablet Take 40 mg by mouth in the morning. 10/18/2023 ActiveStart: 07-28-2019 End: 57-28-1232gvoj 1 tablet by mouth once dailyRosuvastatin 20 mg tablet Discontinued 20 MG PO Daily July 28, 2019 1:00am October 17, 2024 2:00am sacubitril 24 mg / valsartan 26 mg oral tablet (4 sources)Angiotensin 2 Receptor BlockerStart: 89-67-8297xsex 1 tablet by mouth twice dailysildenafil 100 mg oral tablet (20 sources)Phosphodiesterase 5 InhibitorStart: 07-28-2019 End: 14-45-7452kutuplhlyy (Viagra) 100 MG tablet Indications: Benign prostatic hyperplasia without urinary obstruction Take 1 tablet (100 mg) by mouth if needed for erectile dysfunction 10 tablet 2 11/05/2023 Activespironolactone 25 mg oral tablet (6 sources)Aldosterone AntagonistStart: 84-30-4323lmsmoaqobkegxs 25 mg Tab 25 mg = 1 tab(s), Oral Start Date: 12/02/24 Status: Ordered Repeat number: 1Start: 10-24-2024 End: 49-55-0218ptqz 0.5 tablet by mouth once dailyspironolactone (Aldactone) 25 mg tablet Indications: Ischemic cardiomyopathy Take 0.5 tablets (12.5mg) by mouth once daily. 15 tablet 11 10/24/2024 10/24/2025 ActiveStart: 10-18-2024 End: 32-30-0335tcuz 1 tablet by mouth once dailyspironolactone (Aldactone) 25 mg tablet Take 1 tablet (25 mg) by mouth once daily. 10/24/2024 Discontinued (Dose adjustment)tamsulosin hydrochloride 0.4 mg oral capsule (20 sources)alpha-Adrenergic BlockerStart: 82-51-8763hbmx 1 capsule by mouth once dailytamsulosin (Flomax) 0.4 MG 24 hr capsule Indications: Benign prostatic hyperplasia without urinary obstruction Take 1 capsule (0.4 mg) by mouth Daily 90 capsule 3 03/24/2024 ActiveStart: 12-20-2023 End: 05-97-0708ndqh 1 capsule by mouth once dailytamsulosin (Flomax) 0.4 MG 24 hr capsule Indications: Benign prostatic hyperplasia without urinary obstruction Take 1 capsule (0.4 mg) by mouth Daily 90 capsule 3 12/20/2023 03/22/2024 Discontinued (Reorder)Start: 57-31-0789axeh 2 capsules by mouth once daily tamsulosin (Flomax) 0.4 mg 24 hr capsule Take 2 capsules (0.8 mg) by mouth once daily. 06/28/2020 ActiveStart: 04-26-2018 End: 69-87-1444klzq 2 capsules by mouth once dailytamsulosin 0.4 mg Cap 0.8 mg = 2 cap(s), Oral, Daily, X 30 day(s), # 60 cap(s), Refills(s) 11, Pharmacy: [facility], 172, cm, 04/16/24 9:51:00 EST, Height/Length Dosing, 108.1, kg, 249:51:00 EST, Weight Dosing Start Date: 04/16/24 Stop Date: 04/11/25 Status: Ordered Quantity: 60.0 Unit: cap(s) Repeat number: 12Start: 71-01-2459iljo 0.4 mg by mouth once dailyTamsulosin Active 0.4 MG PO Daily April 26, 2018 12:00amtake 1 capsule by mouth every twenty-four hours in the morningtamsulosin (Flomax) 0.4 MG 24 hr capsule Take 0.4 mg by mouth in the morning. 0 Activetriamcinolone acetonide 1 mg/ml topical cream (20 sources)CorticosteroidStart: 07-02-2024 End: 53-91-7294wyfecrpfyiefa (Kenalog) 0.1 % cream Indications: Rash Apply 1 application topically in the morning and 1 application at noon and 1 application in the evening and 1 application before bedtime. Do all this for 14 days. Avoid face and groin. Apply on back and under arm area. 45 g 1 07/02/2024 07/16/2024 Activetake 1 spray(s) nasal route in the morningtriamcinolone (Nasacort Allergy 24HR) 55 MCG/ACT nasal inhaler Administer 1 spray into each nostrilin the morning. Activetropicamide 10 mg/ml ophthalmic solution (1 source)AnticholinergicStart: 05-01-2022 End: 99-90-3328rlqjuztqoxv 1 % 1 Drop (MYDRIACYL)valsartan 40 mg oral tablet (1 source)Angiotensin 2 Receptor BlockerStart: 73-74-7470newugzbqz 40 mg Tab Refills(s) 0 Start Date: 12/02/24 Status: Ordered Repeat number: 1zinc gluconate 30 mg oral tablet (20 sources)take 1 tablet by mouth once dailyzinc 30 MG tablet Take 30 mg by mouth 1 (one) time each day. ActiveZinc Gluconate 30 mg tab Take by mouth q 24 HR. 0 ActiveComment on above:Take by mouth q 24 HR. Completed/Discontinued Medications MedicationDrug Class(es)DatesSig (Normalized)Sig (Original)azithromycin 250 mg oral tablet (9 sources)Macrolide AntimicrobialStart: 06-29-2024 End: 35-30-6826ilxzqhpexqyz (Zithromax) 250 MG tablet Take 250 mg by mouth See administration instructions 500 mg today, 250 mg x 4 days 06/29/2024 09/24/2024 Discontinued (Med list cleanup)Start: 60-54-3890bdvvyjwaopqo (Zithromax) 250 MG tablet Indications: Acute exacerbation of chronic obstructive pulmonary disease (CMS/HCC) Z-Pack. Take 2 tablets on day 1, and one tablet per day on days 2-5. 6 tablet0 06/30/2023 ActiveBudesonide-Formoterol (5 sources)Corticosteroid, beta2-Adrenergic AgonistStart: 07-28-2019 End: 62-57-8743kzum 1 puff(s) by inhalation every twelve hoursBudesonide- Formoterol 160-4.5 mcg/actuation Hfa Aerosol Inhaler Discontinued 2 PUFF INHALATION F03GQhvdc2019 1:00am October 17, 2024 2:00amStart: 36-21-1151mtrz 1 puff(s) by inhalation every twelve hoursBudesonide-Formoterol Active 2 PUFF INHALATION Q12H July 28, 2019 12:00amcholecalciferol 0.025 mg oral tablet (20 sources)Vitamin DStart: 07-28-2019 End: 70-09-0350bbkj 1 tablet by mouth once dailyCholecalciferol (Vitamin D3) (Vitamin D3) 25 mcg (1,000 unit) Tablet Discontinued 1000 UNIT PO Daily July 28, 2019 1:00am October 17, 2024 2:00amtake 1 tablet by mouth in the morning cholecalciferol (Vitamin D-3) 50 MCG (1999 UT) tablet Take 50 mcg by mouth in the morning. Activedoxycycline hyclate 100 mg oral tablet (9 sources)Tetracycline-class DrugStart: 06-14-2023 End: 88-79-9931hnoc 1 tablet by mouth twice dailyDoxycycline Hyclate 100 mg tablet Discontinued 100 MG PO Twice daily 03 01June 14, 2023 1:00amMa2024 2:00amStart: 29-32-0819qftqbpatygz hyclate (VIBRAMYCIN) 100 mg capsuleezetimibe 10 mg oral tablet (20 sources)Dietary Cholesterol Absorption InhibitorStart: 08-18-2019 End: 32-70-2114kfxe 1 tablet by mouth once dailyezetimibe (ZETIA) 10 mg tablet Take 1 tablet by mouth once daily. 0 08/18/2019 ActiveComment on above:Take 1 tablet by mouth once daily.hydroCHLOROthiazide 25 mg oral tablet (16 sources)Thiazide DiureticStart: 78-50-4265cvsaiFDLTZAzdxamrxt (HYDRODIURIL, ESIDRIX) 25 mg tablet Take by mouth q 24 HR. 0 10/11/2020 ActiveStart: 04-26-2018 End: 83-07-2375dyao 1 tablet by mouth once dailyHydrochlorothiazide 25 mg tablet Discontinued 25 MG PO Daily April 26, 2018 1:00am October 17, 2024 2:00am Comment on above:Take by mouth q 24 HR.ipratropium bromide 0.2 mg/ml inhalation solution (5 sources)AnticholinergicStart: 04-26-2018 End: 99-05-5828wcuq 0.5 mg by inhalation every eight hoursIpratropium [place] 0.02 % solution Discontinued 0.5 MG INHALATION Q8H April 26, 2018 1:00am July 28, 2019 7:55amStart: 04-26-2018 End: 39-38-8083opcw 0.5 mg by inhalation every eight hoursIpratropium [place] Discontinued 0.5 MG INHALATION Q8H April 26, 2018 12:00am July 27 0 6:55amlevoFLOXacin 750 mg oral tablet (6 sources)Quinolone AntimicrobialStart: 04-26-2018 End: 82-24-7995xqyc 1 tablet by mouth every twenty-four hoursLevofloxacin (Levaquin) 750 mg tablet Discontinued 750 MG PO Q24H 03 06April 26, 2018 1:00am May 05, 2018 1:00am May 06, 2018 1:02amtake 1 tablet by mouth once dailylevoFLOXacin (Levaquin) 750 mg tablet Take 1 tablet (750 mg) by mouth once daily. ActiveMagnesium (6 sources)take 1 tablet by mouth once dailyMagnesium 250 MG Oral Tablet TAKE 1 TABLET DAILY. Quantity: 0 Refills: 0 Ordered: 07-Sep-2022 DO ActiveMultivitamin Tablet (3 sources)Start: 07-28-2019 End: 70-94-3383ucot 1 tablet by mouth once dailyMultivitamin Tablet Discontinued 1 TAB PO Daily July 28, 2019 1:00am October 17, 2024 2:00amnystatin 100 unt/mg topical powder (5 sources)Polyene AntifungalStart: 07-17-2024 End: 72-93-6042flurmzvv (Mycostatin) 747003 UNIT/GM powder Indications: Erythema intertrigo Apply to the affected area on groin area, once daily, 30 day supply 60 g 11 07/17/2024 09/24/2024 Discontinued (Med list cleanup)nystatin (Mycostatin) 100,000 unit/mL suspension 5 mL (500,000 Units) 4 times a day. ActiveOmega 3 CAPS (2 sources)[place] 3 CAPS TAKE DIRECTED. Quantity: 0 Refills: 0 Ordered: 05-Sep-2021 DO ActivepredniSONE 10 mg oral tablet (20 sources)Start: 10-17-2024 End: 28-58-0789Ctdyxqjsdw 10 mg tablet Discontinued MG October 17, 2024 12:00am October 17, 2024 2:01amStart: 06-29-2024 End: 82-98-0183crku 1 tablet by mouth once dailypredniSONE (Deltasone) 50 MG tablet Take 50 mg by mouth Daily 06/29/2024 07/05/2024 ActiveStart: 06-30-2023 take 1 tablet by mouth three times daily at mealtime, then take 1 tablet by mouth twice daily, thentake 1 tablet by mouth once dailypredniSONE (Deltasone) 20 MG tablet Indications: Acute exacerbation of chronic obstructive pulmonary disease (CMS/HCC) 1 po tid with food x 5 days then 1 po bid x 3 days, then 1 po every day x 3 days24 tablet 0 06/30/2023 ActiveStart: 06-14-2023 End: 34-78-7177vntc 2 tablets by mouth once dailyPrednisone 20 mg tablet Discontinued 40 MG PO Daily 10 June 14, 2023 1:00am October 17, 2024 2:00am Start: 08-51-9757fwuc 40 mg by mouth once dailyPrednisone Active 40 MG PO Daily 10 June 14, 2023 12:00amStart: 04-26-2018 End: 69-32-7226lwpi 2 tablets by mouth once dailyPrednisone 20 mg tablet Discontinued 40 MG PO Daily 10 April 26, 2018 1:00am April 30, 2018 1:00am May 01, 2018 1:01amStart: 04-26-2018 End: 38-68-2305psts 40 mg by mouth once dailyPrednisone Discontinued 40 MG PO Daily 10 April 26, 2018 12:00am May 01, 2018 12:01amStart: 09-19-2017 End: 75-63-8683ocws 3 tablets by mouth once daily at mealtimePrednisone 20 mg tablet Discontinued 60 MG PO Daily 15 5 September 19, 2017 12:00am July 28, 2019 7:55am administer with food or milkStart: 09-19-2017 End: 54-79-1087psma 60 mg by mouth once daily at mealtimePrednisone Discontinued 60 MG PO Daily 15 September 18, 2017 11:00pm July 28, 2019 6:55am administer with food or milkvalACYclovir 1000 mg oral tablet (5 sources)Herpesvirus Nucleoside Analog DNA Polymerase Inhibitor, Herpes Simplex Virus Nucleoside Analog DNA Polymerase Inhibitor, Herpes Zoster Virus Nucleoside Analog DNA Polymerase InhibitorStart: 51-04-9661umes 1 tablet by mouth three times dailyvalACYclovir (VALTREX) 1 gram TAKE 1 TABLET BY MOUTH THREE TIMES A DAY FOR 7 DAYS 0 02/01/2022 ActiveComment on above:TAKE 1 TABLET BY MOUTH THREE TIMES A DAY FOR 7 DAYSvitamin b12 1 mg oral capsule (5 sources)Vitamin X69Mfiri: 07-28-2019 End: 67-57-8080qsij 1 capsule by mouth once dailyCyanocobalamin (Vitamin B-12) 1,000 mcg Capsule Discontinued 1000 MCG PO Daily July 28, 2019 1:00am October 17, 2024 2:00amvitamin e 180 mg oral capsule (20 sources)Start: 09-04-2016 End: 85-36-8961tdpt 1 capsule by mouth once dailyVitamin E 400 unit Capsule Discontinued 400 UNIT PO Daily July 28, 2019 1:00am October 17, 2024 2:00amtake 1 capsule by mouth in the morningalpha tocopherol (Vitamin E) 400 units capsule Take 400 Units by mouth in the morning. Activetake 1 tablet by mouth once daily Vitamin E 400 UNIT Oral Tablet TAKE 1 TABLET DAILY. Quantity: 0 Refills: 0 Ordered: 07-Sep-2022 DO ActiveComment on above:Take 1 tablet by mouth once daily. Problems Active Problems Problem ClassificationProblemDateDocumented DateEpisodic/Chronic Administrative/social admission (2 sources)Patient encounter status; Translations: [Other specified counseling] 82-53-5909VovoancsJmtxyt (20 sources)Asthma; Translations: [Unspecified asthma, uncomplicated]Onset: 544490-07-7938LeuuaxfXjfitwaho and vision defects (1 source)Bilateral hyperopia of eyes; Translations: [Hypermetropia, bilateral] EpisodicChronic obstructive pulmonary disease and bronchiectasis (20 sources)Acute exacerbation of chronic asthmatic bronchitis; Translations: [Chronic obstructive pulmonary disease with (acute) exacerbation]Onset: 998366-73-2720TijpdocOejhgzlkfx heart failure; nonhypertensive (20 sources)Congestive heart failure; Translations: [Heart failure, unspecified] Onset: 718452-63-2969TtpgmluZjhsgmuk atherosclerosis and other heart disease (20 sources)Coronary arteriosclerosis; Translations: [Coronary atherosclerosis of unspecified type of vessel, [place] or graft]Onset: ChronicCoronary atherosclerosis and other heart disease (5 sources)Presence of coronary angioplasty implant and graft; Translations: [Percutaneous transluminal coronary angioplasty status]Onset: 02-13-2023 04-05-0965MeushefhSrvmqldik of lipid metabolism (20 sources)Hyperlipidemia; Translations: [Other and unspecified hyperlipidemia] Onset: 904427-94-7318IbfiwkeNiokdenetu disorders (20 sources)Gastroesophageal reflux disease; Translations: [Esophageal reflux] Onset: 671993-82-6494WqcjdglKwnjesauk hypertension (20 sources)Essential hypertension; Translations: [Unspecified essential hypertension]Onset: 470882-84-5288CmglkowKnywk and electrolyte disorders (2 sources)Hyponatremia; Translations: [Hypo-osmolality and hyponatremia] 36-74-3674BvkpbcasOkuoczvgnoyxo symptoms and ill-defined conditions (8 sources)Retention of urine; Translations: [Retention of urine, unspecified] Onset: 51-19-9845YkexwwhkLnzptupnxoc of prostate (20 sources)Benign prostatic hypertrophy without outflow obstruction; Translations: [Benign prostatic hyperplasia without lower urinary tract symptoms]Onset: 375671-16-9892DwhyzowIcrgvqccqqou conditions of male genital organs (6 sources)Chronic prostatitis; Translations: [Chronic prostatitis]Onset: 45-48-5526PxyfvkrZbebgjb and fatigue (5 sources)Asthenia; Translations: [Weakness]46-08-2664XoivzmnhTggii diseases of kidney and ureters (1 source)Urinary tract obstruction; Translations: [Other obstructive and reflux uropathy]Onset: 59-80-3588WdoopiowWzjqg endocrine disorders (20 sources)Testicular hypofunction; Translations: [Testicular hypofunction] Onset: 714368-51-4907KznqrnoFzldg eye disorders (1 source)Tear film insufficiency; Translations: [Dry eye syndrome of bilateral lacrimal glands]EpisodicOther eye disorders (1 source)Paralytic strabismus; 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] EpisodicOther inflammatory condition of skin (2 sources)Intertrigo; Translations: [Erythema intertrigo]00-16-6591Estywkjo Other nervous system disorders (1 source)Segmental autonomic dysfunction; 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Other nervous system disorders (1 source)Myokymia of eyelid; Translations: [Facial myokymia]EpisodicOther nervous system disorders (3 sources)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; Translations: [Clonic hemifacial spasm, right]EpisodicOther nutritional; endocrine; and metabolic disorders (14 sources)Obesity; Translations: [Obesity, unspecified]Onset: 02-13-2023 42-72-7439RaumifeIrfbb nutritional; endocrine; and metabolic disorders (2 sources)Morbid obesity; Translations: [Morbid (severe) obesity due to excess calories]Onset: 752678-26-9654ZdrtjomVrusr nutritional; endocrine; and metabolic disorders (6 sources)Body mass index 30+ - obesity; Translations: [Body mass index (BMI) 36.0-36.9, adult]Onset: 562916-24-1548SrwdhscVnjjj nutritional; endocrine; and metabolic disorders (1 source)Obese class II; Translations: [Class 2 obesity]11-05-4103IzlqbajNpirr nutritional; endocrine; and metabolic disorders (2 sources)Obesity caused by energy imbalance; Translations: [Morbid (severe) obesity due to excess calories]02-75-0104NaltacnXqxkp nutritional; endocrine; and metabolic disorders (2 sources)Body mass index (BMI) 33.0-33.9, adult; Translations: [Body mass index (BMI) 33.0-33.9, adult]Onset: 80-27-5889SxmgkovBdgyc nutritional; endocrine; and metabolic disorders (2 sources)Body mass index (BMI) 36.0-36.9, adult; Translations: [Body mass index (BMI) 36.0-36.9, adult]Onset: 81-40-5647CysxeonAdtdl skin disorders (4 sources)Skin lesion; Translations: [Disorder of the skin and subcutaneous tissue, unspecified]37-33-2982KxxskjkvAtqkq skin disorders (2 sources)Eruption; Translations: [Rash and other nonspecific skin eruption] 67-16-9301AgnjuhvrPyhby skin disorders (2 sources)Sebaceous cyst of skin; Translations: [Sebaceous cyst]07-02-2024 EpisodicOther skin disorders (2 sources)Epidermoid cyst; Translations: [Epidermal cyst]80-68-9609Isfcradb Other upper respiratory disease (2 sources)Nasal sinus problem; Translations: [Other specified disorders of nose and nasal sinuses]01-49-5504YqmkqyvgPdtys upper respiratory infections (20 sources)Chronic sinusitis; Translations: [Chronic sinusitis, unspecified] Onset: 663645-57-2185AczfnrePybjei media and related conditions (2 sources)Acute non-suppurative otitis media - serous; Translations: [Acute serous otitis media, right ear]80-51-4589EtizkqinSshskejen (except that caused by tuberculosis or sexually transmitted disease) (11 sources)Right middle zone pneumonia; Translations: [Pneumonia, unspecified organism]Onset: 983948-78-1369VtaflqwhQslmjolgofe failure; insufficiency; arrest (adult) (7 sources)Acute respiratory failure; Translations: [Acute respiratory failure with hypoxia]Onset: 864574-97-9737TcqhxahrXzkylalyyo (except in labor) (2 sources)Sepsis; Translations: [Sepsis, unspecified organism]02-22-2024 EpisodicUnclassified (3 sources)A [facility] screening has identified you as FRAIL [...] Four Ways to Beat the Frailty Risk [email or web address]-hxpk- gslj-pd-fjfx-the-fra ruzc-ouzs97-18bkyp34-00-8955Bhoxwvensjvm (2 sources)Follow-up with CardiologyUnclassified (1 source)Call office on Sunday to schedule follow-up with your Primary Care Provider within 3-5 days of discharge. Past or Other Problems Problem ClassificationProblemDateDocumented DateEpisodic/ChronicDiabetes mellitus without complication (20 sources)Prediabetes; Translations: [Prediabetes]Onset: 457418-85-5542 EpisodicMood disorders (18 sources)Mood disordersOnset: Other nervous system disorders (1 source)Clonic hemifacial spasm, right; Translations: [Clonic hemifacial spasm, right]Onset: 25-57-7171EojflgtjYllix screening for suspected conditions (not mental disorders or infectious disease) (20 sources)History of adenomatous polyp of colon; Translations: [Encounter for screening for malignant neoplasm of colon]Onset: 379130-43-8862Hubpqnqu Other upper respiratory disease (20 sources)Polyp of nasal sinus; Translations: [Other polyp of sinus]Onset: 929535-49-1040OyewmunzGvxsnlxki and history of mental health and substance abuse codes (20 sources)Ex-smoker; Translations: [Personal history of tobacco use]Onset: 905857-57-1906TpzhdibrOomdfso on above:QUIT IN 1984;Unclassified (20 sources)Onset: 03-23-2023 Resolved: 227724-48-1578Hfyfsmghwyrz (2 sources)Sebaceous cyst of iyzv52-12-5931Mgsxs infection (20 sources)Disease caused by 2019-nCoV; Translations: [COVID-19]Onset: 684815-93-1412Icygmcjo Results Test NameValueInterpretationReference RangeFacilityOffice Visiton 03-16-2025 Follow-up [id number] Demarcus Calderon 1955 [facility] Provider Department Center 03/16/2025 CONRAD PATEL Family History Family Status - Relation Status Age at Mother Father Level of Service:36296 CT OFFICE/OUTPATIENT ESTABLISHED MOD [facility] 92-37-3474Txkqqy-up visit [id number] Demarcus Calderon 1955 M Date Provider Department Center 12/09/2024 CONRAD PATEL Family History Family Status - Relation Status Age at Mother Father Level of Service:23429 CT OFFICE/OUTPATIENT NEW MODERATE MDM 43 [facility] Ambulatory Visit SummaryAmbulatory Visit Summary DEMARCUS CALDERON :1955 Visit Date:12/02/2024 Ambulatory Visit Instructions Your Diagnosis BPH with obstruction/lower urinary tract symptoms Urinary retention Elevated PSA Your Care Team Attending Physician - BENNY SHELLEY, John Hauser Primary Care Physician - Sera Flower PA-C This Is Your Medications List Contact [...] AM EST With: Where: [facility] [address] [place] [address]- Sunday2025 9:45 AM EST With: John BAPTISTE MD Where: [facility] [address] [place] [address]- You Need to Schedule the Following Appointments Follow Up with John BAPTISTE MD, URL When: Comments: 6 mos w/ PSA and PVR Where: [address] [address]- You Need to Complete the Following PSA Free & Total, Blood, Routine collect, *Est. 06/04/25 +/- 28 day(s), Order for future visit,Lab Collect, Elevated PSA, Required & Missing, Print [...] congestive heart failure Coronary artery disease involving [place] heart with angina pectoris Elevated PSA GERD [...] Difficulty starting urine flow. (more content not included)...[facility]/Clinic Noteon 31-60-2408Xnqdmoe Office/Clinic Note Urology Office/Clinic Note Chief Complaint [...] down to 2.3 late last year I haverecommended a repeat PSA level prior to his next visit. He agrees with that plan. Reviewed UA, ordered PSA, order PVR at next visit. Medication management. Follow-up With When Contact Information BENNY SHELLEY, John Hauser, URL [address] [place] [address]- Additional Instructions: 6 mos w/ PSA and PVR Patient Education Benign Prostatic Hyperplasia Medina Munoz, personally scribed for Dr. Baptiste on 12/02/2024 08:25:31. . Documentation recorded by the Medina bundy acurately reflects the services(s) I performed anddecisions made by me. Authenticated by Dr. Baptiste on 12/02/2024 08:26:24. Portions of this record may have been created with voice recognition artificial intelligence software, specifically [employer], [employer] and or [employer]. Substitutions may have occurred due to the inherent limitations of voice recognition and artificial intelligence software. 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 Elevated PSA GERD [...] Father. Hypertension: Father. Im (more content not included)...[facility] HospitalComment on above:Result Comment: Electronically Signed By: John BAPTISTE MD\.br\Date and Time Signed: 12/02/24 08:27 EDT\.br\Electronically Co-Signed By: Medina Farley\.br\Date and Time Co-Signed: 12/02/24 08:25 EDTECH echo transthoracicon 47-85-1739UGJ echo transthoracicST. [facility] [place] [address] Echocardiogram Signed Patient: Demarcus Calderon MR#: [id number] 652 : 1955 Acct:[id number] Age/Sex: 69 / M ADM Date: 11/21/24 Loc: Room: Type: [facility] Attending Dr: Kiya Richmond APRN Ordering Provider: Kiya Richmond APRN Date of Service: 11/21/24/ ECH/ECH echo transthoracic: ISCHEMIC CARDIOMYOPATHY Copies to: WILLIAN Garcia MD BSA: 2.1 m2 BP: 127/80 mmHg HR: 74 Reason For Study: ISCHEMIC CARDIOMYOPATHY History: HTN, HLD, Former Smoker, [place], Stents, Emphysema, COVID Interpretation Summary Ejection Fraction [...] 0756 Signed By: Alex Gaston MD 11/21/24 1535[facility] Physician GroupBasic Metabolic Panelon 29-81-1279JAW/1.73 sq M.predicted MDRD (S/P/Bld) [Vol rate/Area]mL/min/{1.73_m2}NormalThe [facility] Comment on above:Performed By: #### BMP #### [place] [address] USACalcium [Mass/volume] in Serum or PlasmaOrdered By: Kiya Richmond on 42-25-9790Sbuirsk [Mass/Vol]Calcium [Mass/volume] in Serum or Plasma 8.6-10.3FTrumbull Memorial HospitalCalcium [Mass/Vol]8.6 mg/dLNormal 8.6-10.3FTrumbull Memorial HospitalComment on above:Result Comment: PERFORMED BY: [place] [id number] PATHOLOGIST PRODUCTION MECHANIC TIN [employer] ERASMO SADLER M.D.Performed By: #### BMP #### [place] [id number] USACarbon dioxide, total [Moles/volume] in Serum or Plasma Ordered By: Kiya Richmond on 04-61-6117MN2 [Moles/Vol]Carbon dioxide, total [Moles/volume] in Serum or Vklnrr55.0-31.0[facility] HospitalCO2 [Moles/Vol]25.4 mmol/KDpxhxf32.0-31.0[facility] HospitalComment on above:Performed By: #### BMP #### [place] [id number] USAChloride [Moles/volume] in Serum or PlasmaOrdered By: Kiya Richmond on 42-67-8698Ontwqbtq [Moles/Vol]Chloride [Moles/volume] in Serum or Bdkjlp76-863ThwzyrfooPromedica Defiance Regional HospitalChloride [Moles/Vol]100 mmol/L Mqqwqi53-930Rkwvoxgzu[address] [place], [place] [address]Comment on above:Performed By: #### BMP #### [place] [id number] USACreatinine [Mass/volume] in Serum or PlasmaOrdered By: Kiya Richmond on 96-69-4438Xitarlvath [Mass/Vol]Creatinine [Mass/volume] in Serum or Plasma0.70-1.30[facility] HospitalCreatinine [Mass/Vol]0.97 mg/dLNormal0.70-1.30[facility] HospitalComment on above:Performed By: #### BMP #### [facility] [address] [place], [place] [id number] USAGlucose [Mass/volume] in Serum or PlasmaOrdered By: Kiya Richmond on 80-91-4526Owfflaj [Mass/Vol]Glucose [Mass/volume] in Serum or Plasma Lnuj59-974XharsacimPromedica Defiance Regional HospitalComment on above:ADA recommended reference rangeRandom Glucose Reference Range is dependent on time and content of last meal. Glucose of more than 200 mg/dL in a nonstressed, ambulatory subject supports the diagnosisof Diabetes Mellitus.Glucose [Mass/Vol]115 mg/dL Lhtv67-615NrlzgrdvvPromedica Defiance Regional HospitalComment on above:ADA recommended reference rangeRandom Glucose Reference Range is dependent on time and content of last meal. Glucose of more than 200 mg/dL in a nonstressed, ambulatory subject supports the diagnosisof Diabetes Mellitus.Result Comment: Random Glucose Reference Range is dependent on time and content of last meal. Glucose of more than 200 mg/dL in a nonstressed, ambulatory subject supports the diagnosis of Diabetes Mellitus. ADA recommended reference rangePerformed By: #### BMP #### [facility] [address] [place] [address] USANo Panel InformationOrdered By: Kiya Richmond on 10-31-2024 Estimated GFR (CKD-EPI)> 60.0 mL/MinPromedica Defiance Regional HospitalPharmacy Creatinine Clearance (ChemN/[facility] CenterPotassium [Moles/volume] in Serum or PlasmaOrdered By: Kiya Richmond on 23-79-2917Uyhcekkkl [Moles/Vol]Potassium [Moles/volume] in Serum or Plasma3.5-5.1FTrumbull Memorial HospitalPotassium [Moles/Vol]4.0 mmol/LNormal3.5-5.1FTrumbull Memorial HospitalComment on above:Performed By: #### BMP #### [facility] [address] [place] [id number] USASerum or plasma anion gap determinationOrdered By: Kiya Richmond on 44-59-5275Rplih gap [Moles/Vol]Serum or plasma anion gap determination 6.0-15.0[facility] HospitalAnion gap [Moles/Vol]12.6 mmol/LNormal 6.0-15.0Prom[facility] Defiance Regional HospitalComment on above:Performed By: #### BMP #### [facility] [address] [id number] USASodium [Moles/volume] in Serum or PlasmaOrdered By: Kiya Richmond on 48-72-6852Pddsem [Moles/Vol]Sodium [Moles/volume] in Serum or PlasmaLow 136-145Ohio State Health Systemodium [Moles/Vol]134 mmol/LPwn803-657 [facility] HospitalComment on above:Performed By: #### BMP #### [facility] [address] [id number] USAUrea nitrogen [Mass/volume] in Serum or PlasmaOrdered By: Kiya Richmond on 70-71-5540Roli nitrogen [Mass/Vol]Urea nitrogen [Mass/volume] in Serum or Plasma12-19[facility] HospitalUrea nitrogen [Mass/Vol]16 mg/dLNormal12-19[facility] HospitalComment on above:Performed By: #### BMP #### [facility] [address] [place] [address] USABasic Metabolic Panelon 60-44-9193Wxuctgyemj Clr Calc Qfpniaob13.55NoNovant Health Charlotte Orthopaedic Hospital Physician [facility]oxubee General HospitalComment on above:Performed By: #### MGBHAKTI, BMP #### [facility] [address] [place] [address] USAGFR/1.73 sq M.predicted MDRD (S/P/Bld) [Vol rate/Area] mL/min/{1.73_m2}NormalThe [facility] Physician [facility] General HospitalComment on above:Performed By: #### MGBHAKTI, BMP #### [facility] [address] [place] [address] USACalcium [Mass/volume] in Serum or PlasmaOrdered By: Vincenzo Caraballo on 98-98-7026Gigxqhk [Mass/Vol]Calcium [Mass/volume] in Serum or Plasma Low8.6-10.3FTrumbull Memorial HospitalCalcium [Mass/Vol]8.4 mg/dLLow 8.6-10.3FTrumbull Memorial HospitalComment on above:Performed By: #### MG CBCNO, BMP #### [facility] [address] [id number] USACarbon dioxide, total [Moles/volume] in Serum or Plasma Ordered By: Vincenzo Caraballo on 71-96-7189UX4 [Moles/Vol]Carbon dioxide, total [Moles/volume] in Serum or Fpvzvb64.0-31.0[facility] HospitalCO2 [Moles/Vol]22.4 mmol/VZonrvf10.0-31.0[facility] HospitalComment on above:Performed By: #### BHAKTI KRISHNA BMP #### [facility] [address] [place] [address] USAChloride [Moles/volume] in Serum or PlasmaOrdered By: Vincenzo Caraballo on 79-13-3478Mnqlbeci [Moles/Vol]Chloride [Moles/volume] in Serum or Aexrma85-158OudmfgcpxPromedica Defiance Regional HospitalChloride [Moles/Vol]98 mmol/L Vmkzfi62-344Uhabhjxt[address] [place], [place] [address]Comment on above:Performed By: #### BHAKTI KRISHNA, GIOVANNA #### [facility] [address] [place] [address] USACreatinine [Mass/volume] in Serum or PlasmaOrdered By: Vincenzo Caraballo on 95-45-8788Hmlavhzxdj [Mass/Vol]Creatinine [Mass/volume] in Serum or Plasma0.70-1.30[facility] HospitalCreatinine [Mass/Vol]0.76 mg/dLNormal0.70-1.30[facility] HospitalComment on above:Performed By: #### BHAKTI KRISHNA, BMP #### [facility] [address] [place] [address] USAErythrocyte distribution width Auto (RBC) [Ratio]Ordered By: Vincenzo Caraballo on 97-11-3054Elfffssewet distribution width (RBC) [Ratio] Erythrocyte distribution width [Ratio] by Automated owwlpHztu27.0-14.8[facility] HospitalErythrocyte distribution width [Ratio] by Automated count Ordered By: Vincenzo Caraballo on 63-82-2877Yxyaaugarhr distribution width (RBC) [Ratio]15.8 %High12.0-14.8[facility] HospitalComment on above: Performed By: #### BHAKTI KRISHNA, BMP #### [facility] [address] [place] [address] USAErythrocytes [#/volume] in Blood by Automated countOrdered By: Vincenzo Caraballo on 49-65-8878LOQ (Bld) [#/Vol]5.20 10*6/uLNormal3.90-5.60 [facility] HospitalComment on above:Performed By: #### BHAKTI KRISHNA BMP #### [facility] [address] [place] [address] USAGlucose [Mass/volume] in Serum or PlasmaOrdered By: Vincenzo Caraballo on 48-52-5566Hdtltrw [Mass/Vol]Glucose [Mass/volume] in Serum or Plasma [address]Comment on above:ADA recommended reference rangeRandom Glucose Reference Range is dependent on time and content of last meal. Glucose of more than 200 mg/dL in a nonstressed, ambulatory subject supports the diagnosisof Diabetes Mellitus.Glucose [Mass/Vol]124 mg/dL [address]Comment on above:ADA recommended reference rangeRandom Glucose Reference Range is dependent on time and content of last meal. Glucose of more than 200 mg/dL in a nonstressed, ambulatory subject supports the diagnosisof Diabetes Mellitus.Result Comment: Random Glucose Reference Range is dependent on time and content of last meal. Glucose of more than 200 mg/dL in a nonstressed, ambulatory subject supports the diagnosis of Diabetes Mellitus. ADA recommended reference rangePerformed By: #### BHAKTI KRISHNA BMP #### [address] [id number] USAHematocrit Auto (Bld) [Volume fraction]Ordered By: Vincenzo Caraballo on 40-01-4046Mwdzqmuzmn (Bld) [Volume fraction]Hematocrit [Volume Fraction] of Blood by Automated count38.8-50.0[facility] Hematocrit [Volume Fraction] of Blood by Automated countOrdered By: Vincenzo Caraballo on 01-20-4180Dtgjhrfmwi (Bld) [Volume fraction]43.5 %Tswhwu54.8-50.0[facility] HospitalComment on above:Performed By: #### BHAKTI KRISHNA BMP #### [facility] [address] [id number] USAHemoglobin [Mass/volume] in BloodOrdered By: Vincenzo Caraballo on 81-56-2945Dxgyxixztf (Bld) [Mass/Vol]Hemoglobin [Mass/volume] in Blood 13.0-17.0[facility] HospitalHemoglobin (Bld) [Mass/Vol]14.9 g/dL Choxzt33.0-17.0[facility] HospitalComment on above:Performed By: #### MG, CBCNO, BMP #### [facility] [address] [place] [address] USAHemogram CBC Without Diffon 80-81-2090Tosq Corpuscular HGB Conc34.2 g/tODzzrcz84.5-35.6The [facility] Health Physician GroupComment on above: Performed By: #### MG, CBCNO, BMP #### [facility] [address] [place] [address] USAWBC (Bld) [#/Vol]11.5 10*3/uLHigh4.1-10.5The [facility] Health Physician GroupComment on above:Performed By: #### MG, CBCNO, BMP #### [facility] [address] [place] [address] USALeukocytes [#/volume] corrected for nucleated erythrocytes in Blood by Automated counOrdered By: Vincenzo Caraballo on 75-02-5951YRG corrected for nucl RBC Auto (Bld) [#/Vol]Leukocytes [#/volume] corrected for nucleated erythrocytes in Blood by Automated counHigh4.1-10.5FTrumbull Memorial HospitalWBC corrected for nucl RBC Auto (Bld) [#/Vol]11.5 10*3/uLHigh4.1-10.5 [facility] Auto (RBC) [Entitic mass]Ordered By: Vincenzo Caraballo on 94-84-6602JYU (RBC) [Entitic mass]MCH [Entitic mass] by Automated count27.5-35.2FLake [facility] [Entitic mass] by Automated countOrdered By: Vincenzo Caraballo on 40-62-3086CMV (RBC) [Entitic mass]28.7 pgNormal 27.5-35.2FTrumbull Memorial HospitalComment on above:Performed By: #### MG, CBCNO, BMP #### [facility] [address] [id number] USAHC Auto (RBC) [Mass/Vol]Ordered By: Vincenzo Caraballo on 97-24-0697KUGY (RBC) [Mass/Vol]MCHC [Mass/volume] by Automated count32.5-35.6 [facility] HospitalHC (RBC) [Mass/Vol]34.2 g/dL32.5-35.6 [facility] HospitalMCV Auto (RBC) [Entitic vol]Ordered By: Vincenzo Caraballo on 28-14-0446XCV (RBC) [Entitic vol]MCV [Entitic volume] by Automated count83.5-101Prom[facility] HospitalMCV [Entitic volume] by Automated countOrdered By: Vincenzo Caraballo on 83-02-5982ANA (RBC) [Entitic vol]83.8 fLNormal 83.5-[address] [place], [place] [address]Comment on above:Performed By: #### MG, CBCNO, BMP #### [facility] [address] [id number] USAMagnesium [Mass/volume] in Serum or PlasmaOrdered By: Vincenzo Caraballo on 10-06-7266Dijnbkjhd [Mass/Vol]Magnesium [Mass/volume] in Serum or Plasma1.9-2.7FTrumbull Memorial HospitalMagnesium [Mass/Vol]2.3 mg/dL Normal1.9-2.7FTrumbull Memorial HospitalComment on above:Result Comment: PERFORMED BY: [address] [address] PATHOLOGIST PRODUCTION MECHANIC TIN CANS ERASMO SADLER M.D.Performed By: #### MG, CBCNO, BMP #### [facility] [address] [place] [address] USANo Panel InformationOrdered By: Vincenzo Caraballo on 10-18-2024 Estimated GFR (CKD-EPI)> 60.0 mL/MinPromedica Defiance Regional HospitalPharmacy Creatinine Clearance (Chem96.55[facility] HospitalPlatelet mean volume Auto (Bld) [Entitic vol]Ordered By: Vincenzo Caraballo on 67-11-3512Uteupxhv mean volume (Bld) [Entitic vol]Platelet mean volume [Entitic volume] in Blood by Automated count6.6-10.1FTrumbull Memorial HospitalPlatelet mean volume [Entitic volume] in Blood by Automated countOrdered By: Vincenzo Caraballo on 16-33-3631Czjfjkpj mean volume (Bld) [Entitic vol]8.0 fLNormal6.6-10.1FTrumbull Memorial HospitalComment on above:Result Comment: PERFORMED BY: [place] [address] PATHOLOGIST PRODUCTION MECHANIC TIN CANS ERASMO SADLER M.D.Performed By: #### BHAKTI KRISHNA BMP #### [place] [address] USAPlatelets Auto (Bld) [#/Vol]Ordered By: Vincenzo Caraballo on 20-08-1429Yeuddyuhv (Bld) [#/Vol]Platelets [#/volume] in Blood by Automated cyhwk613-516Y[address] [place], [place] [address]Platelets [#/volume] in Blood by Automated countOrdered By: Vincenzo Caraballo on 04-38-7752Oywlhzhve (Bld) [#/Vol]194 10*3/dSDzriov783-570MdsciqqmoPromedica Defiance Regional HospitalComment on above:Performed By: #### BHAKTI KRISHNA, BMP #### [facility] [address] [place] [address] USAPotassium [Moles/volume] in Serum or PlasmaOrdered By: Vincenzo Caraballo on 95-01-5158Ltjjxhwjs [Moles/Vol]Potassium [Moles/volume] in Serum or Plasma3.5-5.1FTrumbull Memorial HospitalPotassium [Moles/Vol]4.0 mmol/LNormal3.5-5.1FTrumbull Memorial HospitalComment on above:Performed By: #### BHAKTI KRISHNA, BMP #### [facility] [address] [place] [address] USARBC Auto (Bld) [#/Vol]Ordered By: Vincenzo Caraballo on 05-52-7641APG (Bld) [#/Vol]Erythrocytes [#/volume] in Blood by Automated count 3.90-5.60Ohio State Health Systemerum or plasma anion gap determinationOrdered By: Vincenzo Caraballo on 43-92-2275Gozjj gap [Moles/Vol]Serum or plasma anion gap determination6.0-15.0[facility] HospitalAnion gap [Moles/Vol]12.6 mmol/LNormal6.0-15.0[facility] HospitalComment on above:Performed By: #### MG CBCNO, BMP #### [facility] [address] [place] [address] USASodium [Moles/volume] in Serum or PlasmaOrdered By: Vincenzo Caraballo on 66-36-9775Wloicx [Moles/Vol]Sodium [Moles/volume] in Serum or Plasma Scm132-115NtucdppqeOhio State Health Systemodium [Moles/Vol]129 mmol/LLow 136-145[facility] HospitalComment on above:Performed By: #### MG CBCNO, BMP #### [facility] [address] [id number] USAUrea nitrogen [Mass/volume] in Serum or PlasmaOrdered By: Vincenzo Caraballo on 71-34-4710Upju nitrogen [Mass/Vol]Urea nitrogen [Mass/volume] in Serum or Plasma7[facility] HospitalUrea nitrogen [Mass/Vol]20 mg/dLNormal7-[facility] HospitalComment on above:Performed By: #### MG CBCNO, BMP #### [facility] [address] [place] [address] USABasic Metabolic Panelon 67-60-1624Wbedo gap [Moles/Vol] 13.3 mmol/LNormal6.0-15.0The [facility] Health Physician GroupComment on above:Performed By: #### BMP CBC, MG #### [facility] [address] [place] [address] USACalcium [Mass/Vol]8.8 mg/dLNormal8.6-10.3The [facility] Health Physician GroupComment on above:Performed By: #### BMP, CBC, MG #### [facility] [address] [place] [address] USAChloride [Moles/Vol]98 mmol/FTiogxm25-843Dzh [facility] Health Physician GroupComment on above:Performed By: #### BMP, CBC, MG #### [facility] [address] [place] [address] USACO2 [Moles/Vol]27.2 mmol/YHtebwy12.0-31.0The [facility] Health Physician GroupComment on above:Performed By: #### BMP, CBC, MG #### [facility] [address] [place] [address] USACreatinine [Mass/Vol]0.89 mg/dLNormal0.70-1.30The [facility] Health Physician GroupComment on above:Performed By: #### BMP, CBC, MG #### [facility] [address] [place] [address] USACreatinine Clr Calc Zfpfutwo54.13NormalThe Atrium Health Physician GroupComment on above:Performed By: #### BMP, CBC, MG #### [facility] [address] [place] [address] USAGFR/1.73 sq M.predicted MDRD (S/P/Bld) [Vol rate/Area] mL/min/{1.73_m2}NormalThe Atrium Health Physician GroupComment on above:Performed By: #### BMP, CBC, MG #### [place] [address] USAGlucose [Mass/Vol]131 mg/kUUnbp94-165Emd [facility] Health Physician GroupComment on above:Result Comment: Random Glucose Reference Range is dependent on time and content of last meal. Glucose of more than 200 mg/dL in a nonstressed, ambulatory subject supports the diagnosis of Diabetes Mellitus. ADA recommended reference rangePerformed By: #### BMP, CBC, MG #### [facility] [address] [place] [address] USAPotassium [Moles/Vol]4.5 mmol/LNormal3.5-5.1The [facility] Health Physician GroupComment on above:Result Comment: Hemolysis is present at a level that could interfere with the result. Contact lab if redraw is requiredPerformed By: #### BMP, CBC, MG #### [facility] [address] [place] [address] USASodium [Moles/Vol]134 mmol/YNrm802-662Ica [facility] Health Physician GroupComment on above:Performed By: #### BMP, CBC, MG #### [facility] [address] [place] [address] USAUrea nitrogen [Mass/Vol]22 mg/dLNormal7-25The [facility] Health Physician GroupComment on above:Performed By: #### BMP, CBC, MG #### [place] [address] USABasophils Auto (Bld) [#/Vol]Ordered By: Tootie Richmond on 97-10-9138Mzssbnxnk (Bld) [#/Vol]Automated basophil count0.0-0.2FTrumbull Memorial HospitalBasophils [#/volume] in Blood by Automated countOrdered By: Tootie Richmond on 78-51-0603Lqulxnoab (Bld) [#/Vol]0.0 10*3/uLNormal0.0-0.2 [facility] HospitalComment on above:Result Comment: PERFORMED BY: [place] [address] PATHOLOGIST PRODUCTION MECHANIC TIN CANS FIORELLA BRIAN M.D.Performed By: #### BMP, CBC, MG #### [place] [address] USABasophils/100 WBC Auto (Bld)Ordered By: Tootie Richmond on 15-32-2024Eyvyjzcpi/100 WBC (Bld)Automated basophil %.[facility] HospitalBasophils/100 leukocytes in Blood by Automated countOrdered By: Tootie Richmond on 81-54-0689Mbiftcmxp/100 WBC (Bld)0.2 %Normal.[facility] HospitalComment on above:Performed By: #### BMP, CBC, MG #### [place] [address] USACapillary blood glucose measurement by glucometer (mass/volume)Ordered By: Vincenzo Caraballo on 18-56-2322Ujekmfg [Mass/Vol]144 mg/dL NormalPromedica Defiance Regional HospitalComment on above:Random Glucose Reference Range is dependent on time and content of last meal. Glucose of more than 200 mg/dL in a nonstressed, ambulatory subject supports the diagnosis of Diabetes Mellitus.Result Comment: Random Glucose Reference Range is dependent on time and content of last meal. Glucose of more than 200 mg/dL in a nonstressed, ambulatory subject supports the diagnosis of Diabetes Mellitus.Performed By: #### GLULS #### Point of Care testing ,Complete Blood Count Auto Diffon 43-79-6401Vjdtunekkoq distribution width (RBC) [Ratio]15.5 %High12.0-14.8The Atrium Health Physician GroupComment on above: Performed By: #### BMP, CBC, MG #### [place] [address] USAHematocrit (Bld) [Volume fraction]44.7 %Kjijfx27.8-50.0The [facility] Health Physician GroupComment on above:Performed By: #### BMP, CBC, MG #### [facility] [address] [place] [address] USAHemoglobin (Bld) [Mass/Vol]15.2 g/gZDmlysp14.0-17.0The [facility] Health Physician GroupComment on above:Performed By: #### BMP, CBC, MG #### [place] [id number] USAMCH (RBC) [Entitic mass]28.5 rgUdrgea81.5-35.2The [facility] Health Physician GroupComment on above:Performed By: #### BMP, CBC, MG #### [facility] [address] [id number] USAMCV (RBC) [Entitic vol]84.2 hQOhifyj37.5-101The [facility] Health Physician GroupComment on above:Performed By: #### BMP, CBC, MG #### [facility] [address] [place] [address] USAMean Corpuscular HGB Conc33.9 g/uJGlyfzh94.5-35.6The [facility] Health Physician GroupComment on above:Performed By: #### BMP, CBC, MG #### [facility] [address] [place] [address] USANRBC%0.1 /100{WBC}Normal0-0.5The [facility] Comment on above:Performed By: #### BMP, CBC, MG #### [facility] [address] [place] [address] USAPlatelet mean volume (Bld) [Entitic vol]8.1 fLNormal 6.6-10.1The [facility] Health Physician GroupComment on above:Performed By: #### BMP, CBC, MG #### [place] [address] USAPlatelets (Bld) [#/Vol]211 10*3/kLIugyst688-108Ero [facility] Health Physician GroupComment on above:Performed By: #### BMP, CBC, MG #### [place] [address] USARBC (Bld) [#/Vol]5.31 10*6/uLNormal3.90-5.60The [facility] Health Physician GroupComment on above:Performed By: #### BMP, CBC, MG #### [place] [address] USAEosinophils Auto (Bld) [#/Vol]Ordered By: Tootie Richmond on 43-21-0254Zxdwtxfagtp (Bld) [#/Vol]Automated eosinophil count0.0-0.45[facility] HospitalEosinophils [#/volume] in Blood by Automated countOrdered By: Tootie Richmond on 53-75-6046Vtjqaybdwxq (Bld) [#/Vol]0.3 10*3/uLNormal0.0-0.45 [facility] HospitalComment on above:Performed By: #### BMP, CBC, MG #### [facility] [address] [place] [address] USAEosinophils/100 WBC Auto (Bld)Ordered By: Tootie Richmond on 50-21-3475Rpucmawdnnb/100 WBC (Bld)Automated eosinophil %.[facility] HospitalEosinophils/100 leukocytes in Blood by Automated countOrdered By: Tootie Richmond on 06-66-3600Epyrpyqehnj/100 WBC (Bld)1.8 %Normal.[facility] HospitalComment on above:Performed By: #### BMP, CBC, MG #### [facility] [address] [place] [address] USAGlucose Glucometer (BldC) [Mass/Vol]Ordered By: Vincenzo Caraballo on 11-10-7266Jsjxbpa [Mass/Vol]Capillary blood glucose measurement by glucometer (mass/volume)[facility] HospitalComment on above:Random Glucose Reference Range is dependent on time and content of last meal. Glucose of more than 200 mg/dL in a nonstressed, ambulatory subject supports the diagnosis of Diabetes Mellitus.Glucose Poct Glucometerson 15-82-8631Ekjhjhw2 Glu2: Cleaned Corey HospitalNormOrlando Health - Health Central Hospital Physician GroupComment on above:Result Comment: PERFORMED BY: [facility] [address] [facility] [place] [address] PATHOLOGIST PRODUCTION MECHANIC TIN CANS FIORELLA BRIAN M.D.Performed By: #### GLULS #### Point of Care testing ,Leukocytes [#/volume] in Blood by Automated countOrdered By: Tootie Richmond on 36-50-3199XFE (Bld) [#/Vol]14.6 10*3/uLHigh4.1-10.5FTrumbull Memorial HospitalComment on above:Performed By: #### BMP, CBC, MG #### [facility] [address] [place] [address] USALymphocytes Auto (Bld) [#/Vol]Ordered By: Tootie Richmond on 94-00-6166Jgtfeyvguox (Bld) [#/Vol]Lymphocytes [#/volume] in Blood by Automated count1.00-4.8[facility] HospitalLymphocytes [#/volume] in Blood by Automated countOrdered By: Tootie Richmond on 81-81-1505Pkgohljwrbg (Bld) [#/Vol] 2.4 10*3/uLNormal1.00-4.8[facility] HospitalComment on above: Performed By: #### BMP, CBC, MG #### [address] [address] USALymphocytes/100 WBC Auto (Bld)Ordered By: Tootie Richmond on 11-30-7684Stvtwenymmg/100 WBC (Bld)Lymphocytes/100 leukocytes in Blood by Automated count.[facility] HospitalLymphocytes/100 leukocytes in Blood by Automated countOrdered By: Tootie Richmond on 25-69-8010Sjrhibcbmiu/100 WBC (Bld)16.3 %Normal.[facility] HospitalComment on above:Performed By: #### BMP, CBC, MG #### [place] [address] USAMagnesiumon 21-32-1727Moicowvky [Mass/Vol]2.2 mg/dLNormal 1.9-2.7The [facility] Health Physician GroupComment on above:Result Comment: PERFORMED BY: [place] [address] PATHOLOGIST PRODUCTION MECHANIC TIN CANS FIORELLA BRIAN M.D.Performed By: #### BMP, CBC, MG #### [place] [id number] USAMonocytes Auto (Bld) [#/Vol]Ordered By: Tootie Richmond on 85-41-5872Zefjmqedo (Bld) [#/Vol]Automated blood monocyte countHigh0.0-0.8 [facility] HospitalMonocytes [#/volume] in Blood by Automated countOrdered By: Tootie Richmond on 19-38-0644Hioypoazs (Bld) [#/Vol]1.1 10*3/uLHigh 0.0-0.8[facility] HospitalComment on above:Performed By: #### BMP, CBC, MG #### [address] [address] USAMonocytes/100 WBC Auto (Bld)Ordered By: Tootie Richmond on 01-71-5981Odcatphgi/100 WBC (Bld)Automated monocyte %.[facility] HospitalMonocytes/100 leukocytes in Blood by Automated countOrdered By: Tootie Richmond on 33-02-7637Viakuqkas/100 WBC (Bld)7.2 %Normal.[facility] HospitalComment on above:Performed By: #### BMP, CBC, MG #### [facility] [address] [place] [id number] USANeutrophils Auto (Bld) [#/Vol]Ordered By: Tootie Richmond on 34-80-5985Btxvcvfentm (Bld) [#/Vol]Neutrophils [#/volume] in Blood by Automated countHigh1.8-7.7FTrumbull Memorial HospitalNeutrophils [#/volume] in Blood by Automated countOrdered By: Tootie Richmond on 95-77-8169Lhjuynpdvul (Bld) [#/Vol]10.9 10*3/uLHigh1.8-7.7FTrumbull Memorial HospitalComment on above: Performed By: #### BMP, CBC, MG #### [facility] [address] [place] [id number] USANeutrophils/100 WBC Auto (Bld)Ordered By: Tootie Richmond on 09-65-6671Cjcazagncjm/100 WBC (Bld)Automated neutrophil %.[facility] HospitalNeutrophils/100 leukocytes in Blood by Automated countOrdered By: Tootie Richmond on 51-97-4811Ewzyefxunmb/100 WBC (Bld)74.5 %Normal.[facility] HospitalComment on above:Performed By: #### BMP, CBC, MG #### [facility] [address] [id number] USANo Panel InformationOrdered By: Vincenzo Caraballo on 10-17-2024 Bedside Glucose CommentGlu2: cleaned [facility] Nucleated erythrocytes [Presence] in Blood by Automated countOrdered By: Tootie Richmond on 06-98-1085Yeqvhnzsv RBC Auto Ql (Bld)Nucleated erythrocytes [Presence] in Blood by Automated count0-0.5FTrumbull Memorial HospitalNucleated RBC Auto Ql (Bld)0.1 /100{WBC}0-0.5FTrumbull Memorial HospitalTroponin I High Sensitivityon 35-40-2580Rgaouzjm I High Ewzchdzwrww49Cabofe1-21Uvw [facility] Health Physician GroupComment on above:Result Comment: The Troponin units of report have been changed to meet the Chest Pain Accreditation requirement, element EC5.M1l2. Troponin units are changed from pg/ml to ng/L. Also, the decimal is removed and results are in whole numbers. PERFORMED BY: [facility] [address] [place] [id number] PATHOLOGIST PRODUCTION MECHANIC TIN CANS ERASMO SADLER M.D.Performed By: #### HS TROP #### [place] [address] USATroponin I.cardiac [Mass/volume] in Serum or Plasma by Detection limit <= 0.01 ng/Ordered By: Keila Davis on 33-15-6868Eyrlkwjy I.cardiac DL <= 0.01 ng/mL [Mass/Vol]Troponin I.cardiac [Mass/volume] in Serum or Plasma by Detection limit <= 0.01 ng/0-[facility] HospitalComment on above:The Troponin units of report have been changed to meet the Chest Pain Accreditation requirement, element EC5.M1l2. Troponin units are changed from pg/ml to ng/L. Also, the decimal is removed and results are in whole numbers. Troponin I.cardiac [Mass/volume] in Serum or Plasma by Detection limit <= 0.01 ng/mLOrdered By: Keila Davis on 66-11-8629Hvyypwdk I.cardiac DL <= 0.01 ng/mL [Mass/Vol]14 ng/L0-[facility]iance [facility] HospitalComment on above:The Troponin units of report have been changed to meet the Chest Pain Accreditation requirement, element EC5.M1l2. Troponin units are changed from pg/ml to ng/L. Also, the decimal is removed and results are in whole numbers.WBC Auto (Bld) [#/Vol]Ordered By: Tootie Richmond on 80-95-9884SMH (Bld) [#/Vol]Leukocytes [#/volume] in Blood by Automated countHigh4.1-10.5FTrumbull Memorial HospitalX-ray reportOrdered By: Miguel Trejo on 44-08-3393Xukkl reportFIRMARTIN [facility]OR[facility] Main [place] [address] [place] [address] XRay Report Signed Patient: Demarcus Calderon MR#: [id number] : 1955 Acct:[id number] Age/Sex: 69 / M ADM Date: 5 Loc: 4P Room: [address] [place] [address] Type: ADM IN Attending Dr: Vincenzo Caraballo [...] Trejo M.D. 10/17/2024 9:46 AM Dictation Location: [place] [address] Transcribed By: CHARITY 10/17/24945 Dictated By: Miguel Trejo MD 10/17/2445 Signed By: 10/17/24 0946 [facility] Work Phone: XR chest 2V*on 92-90-9146WP chest 2V*[facility] Main [address] [address] XRay Report Signed Patient: Demarcus Calderon MR#: [id number] : 1955 Acct:[id number] Age/Sex: 69 / M ADM Date: 10/16/24 Loc: 4P Room: [address] [place] [address] Type: ADM IN Attending Dr: Vincenzo Caraballo [...] Trejo M.D. 10/17/2024 9:46 AM Dictation Location: [place] [address] Transcribed By: [facility] 10/17/24 0946 Dictated By: Miguel Trejo MD 10/17/24 0945 Signed By: 10/17/24 0946[facility] Physician GroupAmbulatory Visit Summaryon 59-02-3636Lbotzmngyv Visit SummaryAmbulatory Visit Summary KVNG DEMARCUS Jose :1955 Visit Date:08/26/2024 Ambulatory Visit Instructions Your [...] John BAPTISTE MD Where: [facility] [address] 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 ??? An exam (more content not included)...[facility] HospitalUrology Office/Clinic Noteon 66-46-9792Ojlqbfr Office/Clinic NoteUrology Office/Clinic Note Chief Complaint F/u Urolift HPI [...] Stream first to improve, urgency/frequency last sx toimprove. Follow up 6-8 wks with PVR or [...] the plan Follow-up With When Contact Information John BAPTISTE MD, URL [address] [place] [id number]- Additional Instructions: 6-8 wks with PVR Patient Education Benign Prostatic Hyperplasia I, Dayanara Murrell, personally scribed for Dr. Baptiste on 08/26/2024 08:41:13. . Portions of this record may have been created with voice recognition artificial intelligence software, specifically [employer], [employer] and or [employer]. Substitutions may have occurred due to the inherent limitations of voice recognition and artificial intelligence software. 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 Elevated PSA GERD [...] 05/28/2018 Recorded diphtheria/pertussis, acel/t (more content not included)...City HospitalComment on above:Result Comment: Electronically Signed By: John BAPTISTE MD\.br\Date and Time Signed: 08/26/24 08:47 EDT\.br\Electronically Co-Signed By: Dayanara Murrell\.br\Date and Time Co-Signed: 08/26/24 08:41 EDT Ambulatory Visit Summaryon 79-56-2775Yhukvopdeq Visit SummaryAmbulatory Visit Summary DEMARCUS CALDERON :1955 Visit Date:08/18/2024 [...] 50 mg Tab) omeprazole (omeprazole 20 mg Cap-) rosuvastatin Procedures Performed Cystoscopy (06/23/2024), Colonoscope, Hernia repair. Discharge Vitals Heart Rate (Peripheral) 72 Respiratory Rate 16 Blood Pressure 138/72 Height 172 cm Height 68 in Weight 111 kg Weight 244.713 lb BMI 37.52 What to do next Scheduled Follow-Up Appointments Sunday 8:00 AM EDT With: John BAPTISTE MD Where: [facility] [address] 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 ??? (more content not included)...[facility] HospitalUrology Office/Clinic Noteon 24-03-2413Grzevqh Office/Clinic NoteUrology Office/Clinic Note HPI Staff 69 year old [...] normal after the the procedure. Advised patient tocont taking the Flomax. Pt verbalized his understanding. 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 Elevated PSA GERD [...] Status influenza virus vac (more content not included)...City HospitalComment on above:Result Comment: Electronically Signed By: JOSEPH Peralta APRN, Yasemin Skelton\.br\Date and Time Signed: 08/18/24 16:08 EDT\.br\Electronically Co-Signed By: Shree Stallworth\.br\Date and Time Co-Signed: 08/18/24 15:06 EDT Ambulatory Visit Summaryon 66-08-7290Zrkbtddafl Visit SummaryAmbulatory Visit Summary DEMARCUS CALDERON :1955 Visit Date:08/15/2024 Ambulatory Visit Instructions Your Care Team Attending Physician - John BAPTISTE MD Primary Care Physician - Sera Flower PA-C Referring Physician - John BAPTISTE MD This Is Your Medications List acetaminophen-hydrocodone (Mcintyre 325 mg-5 mg oral tablet) acetaminophen-tramadol (Ultracet [...] What How Much When Instructions Unchanged acetaminophen-hydrocodone (Mcintyre 325 mg-5 mg oral tablet) See instructions [...] 1 tab day prior to procedure and 1tab day of procdure - afterwards Unchanged ciprofloxacin (ciprofloxacin 500 mg Tab) See instructions Start 3 days prior to procedure- twice a day for 7 days Unchanged [...] congestive heart failure 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 Please share your experience with us by completing your survey. We appreciate your feedback and thank you for choosing us for your care. [facility] HospitalInpatient Patient Summaryon 58-92-3675[place] Patient SummaryInpatient Patient Summary [address] [address] Clinical Summary Person Information Name: DEMARCUS CALDERON Age: 69 Years : 1955 Sex: Male PCP: Sera Flower PA-C Marital Status: Race: White Ethnicity: Non- or Language: Turkmen Visit Id: Visit Reason: BPH WITH LUTS Speciality: Acuity: Enc Type: Outpatient Med Service: Surgery Arrival: 08/08/2024 12:42:16 Discharge: Dispo Type: Address: [address] [place] [id number] Provider Notes: Diagnosis: Other obstructive and reflux uropathy Problems Active BPH with obstruction/lower urinary tract symptoms Chronic prostatitis Urinary retention Elevated PSA Chronic systolic congestive heart failure Coronary artery disease involving kanatak heart with angina pectoris Testicular hypofunction Pure [...] Documented This Visit Final Med List: acetaminophen-hydrocodone (Mcintyre 325 mg-5 mg oral tablet) Take 1 [...] Follow up: With: Address: When: John BAPTISTE [address] [place] [address], [address], [place] [address] Business (1) Comments: Push the fluids to keep the urine clear. Stay on the Flomax for now. Some discharge instructions have been provided. If the bleeding gets severe, or the catheter is clogging from blood clots, you need to go to the ERfor irrigation. Will make a one week appt. to remove the catheter. Type Location Start Finish [facility] Urology CALL [facility] Services 08/13/2024 12:00 PM 08/13/2024 12:30 PM Confirmed Patient Education Information: EU - Urolift Discharge Instructions (Custom)[facility] OR Intraoperative Recordon [id number] OR Intraoperative RecordMain OR Intraoperative Record IntraOp Document Type FTURO Summary Primary Physician: John BAPTISTE MD Finalized Date/Time: 08/08/24 14:01:11 Pt. Name: DEMARCUS CALDERON/Sex: 1955 Male Med Rec #: [id number] Physician: John BAPTISTE MD Financial #: [id number] Pt. Type: O Room/Bed: / Admit/Disch: 08/08/24 [...] Dian Jackman Role Performed Surgeon - Primary Cotton Presser - Primary Scrub - Primary Time In [...] Position Verified Availability Equipment, Implant, Time Out BENNY SHELLEY, John Hauser, Verified (If Medication Participants Demetrice CAMACHO, Leena Suresh) Jayme Cash Laura C Time Out Complete [...] EU Outcomes Met? Yes Last Modified By: Demetrice CAMACHO, Leena Hauser 08/08/24 13:29:05 Post-Care Text: The patient is free from signs and symptoms of injury caused by extraneous objects Implant Log FTURO Pre-Care Text: Records devices implanted during the operative or invasive procedure Entry 1 Entry 2 Entry 3 Implant/Explant Implant Implant Implant Implant Identification Description UROLIFT 2 IMPLANT UROLIFT 2 IMPLANT UROLIFT 2 ATC IMPLANT CARTRIDGE CARTRIDGE CARTRIDGE Serial Number Lot Number [id number] Ware Finisher NEOTRACT NEOTRACT NEOTRACT Catalog ???# [id number] Size Expiration Date 08/19/25 08/19/25 01/22/26 Usage [...] equipment (including patient problems (more content not included)...[facility] HospitalMain OR Preoperative Recordon 51-93-1137Fglj OR Preoperative RecordMain OR Preoperative Record Holding Area Document Type FTURO Summary Primary Physician: John BAPTISTE MD Finalized Date/Time: 08/08/24 13:16:05 Pt. Name: KVNGDEMARCUS/Sex: 1955 Male Med Rec #: [id number] Physician: John BAPTISTE MD Financial #: [id number] Pt. Type: O Room/Bed: / Admit/Disch: 08/08/24 [...] or her perioperative plan of care The patient'sright to privacy is maintained Surgery Checklist FTURO Entry 1 Patient Birthday, ID Band Procedure History and Physical, Identification: Check, Patient Verification: Surgical Consent, With Participation Patient NPO after Midnight: n/a Date/Time: 08/08/24 13:13:00 Personal Items: Glasses Personal Items CLOTHES AND SHOES Comment: Limitations: N/A Complaints of Pain: No Pain Comment: N/A Skin Integrity Intact, Clyman, Warm, & Dry Vitals - EU Blood Pressure 146/74 Pulse 58 bpm Respirations 18 br/min SPO2 95 % Additional None Specimens Comment N/A Specimens Collected Residual Amount - 0 RN Reviewed Yes Post Void Last Modified By: Bonny Brenner 08/08/24 13:15:24 Finalized By: Bonny Brenner Document Signatures Signed By: Bonny Brenner 08/08/24 13:15 Bonny Brenner 08/08/24 13:16NoOhio Valley HospitalOperative Reporton 93-20-2042Lccgrpfqk ReportOperative Report Patient: DEMARCUS CALDERON Age: 69 years Sex: Male : 1955 Associated Diagnoses: None Author: John BAPTISTE MD Procedure Operative Information Details: Date/ Time: 08/08/2024 13:41:00. Pre-Op Dx: Acute urinary retention (QAI85-FF R33.8, Working, Medical), BPH with obstruction/lower urinary tract symptoms (YIL98-NI N40.1, Working, Medical). Post-Op Dx: Same. Anesthesia Type: Local. Procedure: Cystoscopy with UroLift Prostatic Urethral Lift. Complications: None. Risks/Benefits/Informed Consent: Surgical risks, benefits, details of the procedure have been explained to the patient, Full informed consent has been obtained. Indications: This patient has bladder outlet obstructive symptoms refractory to medications, wishesto no longer take medications, He is strongly desirous to try the Urolift procedure, He does have documented moderate urinary retention. He remains on Flomax and this should continue after the procedure (0.8 mg total daily). Intraoperative Information Prepped: Patient received 1 hour prior to procedure (10 mg diazepam, 5/325 mg of Mcintyre), Local Anesthesia (60cc 2% Xylocaine liquid inserted into bladder, 20cc Xylocaine 2% jelly inserted into urethra, Penile clamp applied for 20 min dwell prior to procedure with patient in sitting position). Procedure: A 20F cystoscope was inserted into the bladder, The cystoscopy bridge was replaced with a UroLift delivery device, The first treatment site was the patient's left side approximately 1.5 cmdistal to the bladder neck, The distal tip of the delivery device was then angled laterally approximately 20 degrees at this position to compress the lateral lobe, The trigger was pulled, thereby depl oying a needle containing the implant through the prostate, The needle was then retracted, allowingone end of the implant to be delivered to the capsular surface of the prostate, The implant was then tensioned to assure capsular seating and removal of slack monofilament, The device was then angledback toward midline and slowly advanced proximally (typically 3-4mm) until cystoscopic verificationof the monofilament being centered in the delivery bay, The urethral end piece was then affixed to the monofilament thereby tailoring the size of the implant, Excess filament was then severed, The delivery device was then readvanced into the bladder, The delivery device was then replaced with cystos cope and bridge and the implant location and opening effect was confirmed cystoscopically, The sameprocedure was then repeated on the right side, Two additional implants were delivered just proximalto the veru montanum, again one on right [...] , pulling the median lobe from the leftto the right. (ATC's utilized) Upon procedure completion, [...] gets more persistent/severe. He agrees with the plan.City HospitalComment on above:Result Comment: Electronically Signed By: John BAPTISTE MD\Date and Time Signed: 08/08/24 13:51 EDTOutpatient Surgery Discharge Instructionon 94-64-0418Jyoflvpfzk Surgery Discharge InstructionOutpatient Surgery Discharge Instruction [address] [address] Patient Discharge Instructions PERSON INFORMATION [...] Follow up: With: Address: When: John BAPTISTE [address] [place] [address], [address], [address] [address] Business (1) Comments: Push the fluids to keep the urine clear. Stay on the Flomax for now. Some discharge instructions have been provided. If the bleeding gets severe, or the catheter is clogging from blood clots, you need to go to the ERfor irrigation. Will make a one week appt. to remove the catheter. Type Location Start [facility] Urology CALL PAT [facility] Surgical Services 08/13/2024 12:00 PM [...] follow up call? Yes (more content not included)...City HospitalUrology Office/Clinic Noteon 26-59-2421Qrshcxy Office/Clinic NoteUrology Office/Clinic Note Chief Complaint Cysto HPI Staff [...] eval candidacy for prostate procedures. Taking Flomax 0.4mg bid. Discussed different treatment options for bladder [...] less after this procedure than some others, butcould still occur. Full informed consent has been [...] Contact Information John BAPTISTE MD, URL [address] [address] Additional Instructions: schedule Urolift Patient Education Prostatic Urethral Lift I, Dayanara Murrell, personally scribed for Dr. Baptiste on 06/23/2024 15:40:59. . Documentation recorded by the scribeDayanara, accurately reflects the services(s) I performed and decisions made by me. Authenticated by Dr. Baptiste on 06/23/2024 15:42:23. Portions of this record may have been created with voice recognition artificial intelligence software, specif (more content not included)...City HospitalComment on above:Result Comment: Electronically Signed By: John BAPTISTE MD\.br\Date and Time Signed: 06/23/24 15:44 EST\.br\Electronically Co-Signed By: Dayanara Murrell\.br\Date and Time Co-Signed: 06/23/24 15:41 EST Urology Office/Clinic Noteon 24-84-7788Rhjpxri Office/Clinic NoteUrology Office/Clinic Note Chief Complaint 2 week follow [...] Contact Information ADRIÁN DELACRUZ, SU Esquivel, URL [address] 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 Elevated PSA GERD [...] Protein Urine Dipstick: Negative (04/28/24 12:04:00) Specific Elmer Urine Dipstick: 1.020 (04/28/24 12:04:00) Urine Appearance Urine Dipstick: Clear (04/28/24 12:04:00) Urine Color Urine Dipstick: Yellow (04/28/24 12:04:00) Urobilinogen Urine Dipstick: Normal 0.2-1 EU/dl (04/28/24 12:04:00) pH Urine Dipstick: 6.5 (04/28/24 12:04:00)NormalAdventhealther [facility] Center Comment on above:Result Comment: Electronically Signed By: SU COOK PA-C\.br\Date and Time Signed: 04/28/2413:37 EST\.br\Electronically Co-Signed By: Shree Stallworth\.br\Date and Time Co-Signed: 04/28/24 12:30 ESTCHEMISTRYOrdered By: SYSTEM SYSTEM on 15-89-8514Hpaqoari specific Ag [Mass/Vol]2.3 ng/mLNormal0.1 - 3.5 ng/mLRemisol ChemComment on above:Interpretive Data: The concentration of PSA determined by different manufacturers can vary due to differences in assay methods and reagent specificity. Values obtained from different assay methods cannot be used interchangeably. The methodology used for this result was chemiluminescence using [employer]'s Access Hybritech PSA reagent.PSA Total on 74-08-0621Kawfpsok specific Ag [Mass/Vol]2.3 ng/mLNormal0.1-3.5Fisher Brandenburg CenterComment on above:Result Comment: The concentration of PSA determined by different manufacturers can vary due to differences in assay methods and reagent specificity. Values obtained from different assay methods cannot be used interchangeably. The methodology used for this result was chemiluminescence using Mynor Haider's Access Hybritech PSA reagent.Performed By: #### [id number] #### [facility] [address] [place], [place] [address]Nd Panel Informationon 60-59-2680PUFVNDZPXYHPU HealthcareWHITE BLOOD CELLSon 97-14-3009VVAFC BLOOD CELLS White Blood Cells NOMS HealthcareLYMAN BLOOD CELLSNone [facility] HealthcareCT Cheston 30-02-1172T[address] [address] [address] Scan Report Signed Patient: DEMARCUS CALDERON MR#: [id number] : 1955 Acct:[id number] Age/Sex: 69 / M ADM Date: 01/17/24 Loc: CT Attending Dr: Chalino Phoenix D.O. Ordering Physician: Chalino Phoenix D.O. Date of Service: 01/17/24 Procedure(s): CT chest high res Accession Number(s): [id number] cc: SERA FLOWER [address] [address] Patient Name: DEMARCUS CALDERON MRN: [facility]:[id number] date: 1955 Sex: M Assigned Patient Location: CT Current Patient Location: Accession/Order Number: [id number] Exam Date: 01/17/2024 07:55 Report Date: 01/18/2024 [...] minimal chronic interstitial changes. Electronically authenticated by: TEX HARTMANN Date: 01/18/2024 05:57 Dictated By: Tex Hartmann M.D. Signed By: 01/18/24 06 DD/ 0557 TD/TT: Launchman:TBHRadiology, Radiologist, MD - 01/18/[address] [address] [address] Scan Report Signed Patient: DEMARCUS CALDERON MR#: [id number] : 1955 Acct:[id number] Age/Sex: 69 / M ADM Date: 01/17/24 Loc: CT Attending Dr: Chalino Phoenix D.O. Ordering Physician: Chalino Phoenix D.O. Date of Service: 01/17/24 Procedure(s): CT chest high res Accession Number(s): [id number] cc: SERA FLOWER [address] [address] Patient Name: DEMARCUS CALDERON MRN: H:[id number] date: 1955 Sex: M Assigned Patient Location: CT Current Patient Location: Accession/Order Number: [id number] Exam Date: 01/17/2024 07:55 Report Date: 01/18/2024 [...] minimal chronic interstitial changes. Electronically authenticated by: TEX HARTMANN Date: 01/18/2024 05:57 Dictated By: Tex Hartmann M.D. Signed By: 01/18/24 0600 DD/ 0557 TD/TT: Launchman: GITA HealthcareRadiology Study observation (narrative)[facility] HospitalNo Panel InformationOrdered By: Radiologist Radiology on 06-55-0672NCPB [employer] Work Phone: rt PULMONARY FUNCTION TESTon 06-79[place] [address] Respiratory Report Signed Patient: DEMARCUS CALDERON MR#: [id number] : 1955 Acct:[id number] Age/Sex: 69 / M ADM Date: 01/17/24 Loc: CT Attending Dr: Chalino Phoenix D.O. Ordering Physician: Chalino Phoenix D.O. Date of Service: 01/17/24 Procedure(s): RT pulmonary function test Accession Number(s): [id number] cc: [facility] Test Date: 2024-01-17 Pat Name: DEMARCUS CALDERON Department: Room: - Gender: Male Faculty Physician: Dennis Francisco RRT : 1955 Requested By: Chalino Phoenix Order Number: [id number] Reading MD: Chalino Phoenix Interpretive Statements Pulmonary [...] D.O. Signed By: 01/18/24807 DD/ 7 TD/TT: Launchman:TBHRadiology, Radiologist, - 01/18/2024 [place] [address] Respiratory Report Signed Patient: DEMARCUS CALDERON MR#: [id number] : 1955 Acct:[id number] Age/Sex: 69 / M ADM Date: 01/17/24 Loc: CT Attending Dr: Chalino Phoenix D.O. Ordering Physician: Chalino Phoenix D.O. Date of Service: 01/17/24 Procedure(s): RT pulmonary function test Accession Number(s): [id number] cc: [facility] Test Date: 2024-01-17 Pat Name: DEMARCUS CALDERON Department: Room: - Gender: Male Faculty Physician: Dennis Francisco RRT : 1955 Requested By: Chalino Phoenix Order Number: [id number] Reading MD: Chalino Phoenix Interpretive Statements Pulmonary [...] D.O. Signed By: 01/18/24807 DD/ 7 TD/TT: Launchman: GITA Townsend PULMONARY FUNCTION TESTon 85-29-1448Dfljxnuef Study observation (narrative)GITA BucknerActivated partial thromboplastin time (aPTT) in platelet poor plasma by coagulation aOrdered By: Jasper Martinez on 75-98-5942sXWS Coag (PPP) [Time]30.2 s25.1-36.5FTrumbull Memorial Hospital Comment on above:A hematocrit value greater than 55% may lead to inaccurate results in coagulation testing. Patientshaving hematocrit values >55% require a special collection tube for coagulation studies. Please contact the laboratory at [phone] for redraw instructions.Alanine aminotransferase [Enzymatic activity/volume] in Serum or PlasmaOrdered By: Jasper Martinez on 06-14-2023 ALT [Catalytic activity/Vol]37 U/L7-52[facility] HospitalAlbumin [Mass/volume] in Serum or Plasma by Bromocresol green (BCG) dye binding metho Ordered By: Jasper Martinez on 90-00-5186Lexwedr BCG dye [Mass/Vol]4.1 g/dL 3.5-5.7FTrumbull Memorial HospitalAlkaline phosphatase [Enzymatic activity/volume] in Serum or PlasmaOrdered By: Jasper Martinez on 06-14-2023 ALP [Catalytic activity/Vol]59 U/K30-542MtdxdcwdjPromedica Defiance Regional Hospital Aspartate aminotransferase [Enzymatic activity/volume] in Serum or PlasmaOrdered By: Jasper Martinez on 37-25-7181UCZ [Catalytic activity/Vol]29 U/L13-39 [facility] Regional HospitalBasophils Auto (Bld) [#/Vol]Ordered By: Jasper Martinez on 47-68-8130Puanegglk (Bld) [#/Vol]0.0 10*3/uL0.0-0.2 [facility] HospitalBasophils/100 WBC Auto (Bld)Ordered By: Jasper Martinez on 01-03-4446Riomksoyf/100 WBC (Bld)0.6 %.Prom[facility] Regional HospitalBilirubin.total [Mass/volume] in Serum or PlasmaOrdered By: Jasper Martinez on 85-59-5604Vhtqtoupr [Mass/Vol]0.4 mg/dL0.3-1.0[facility] Regional HospitalCOVID CepheidOrdered By: Jasper Martinez on 06-14-2023 SARS-CoV-2 (COVID-19) Ab IA QlNegativeNegativePromedica Defiance Regional Hospital Comment on above:This is a duplicate CepJiujiuweikang Xpert Xpress CoV-2/Flu/RSV Plus RNA by RT-PCR result to be used for statistical tracking purpose only.SARS-CoV-2 (COVID-19) RNA VERONA+probe Ql (Unsp spec)[facility] HospitalCalcium [Mass/volume] in Serum or PlasmaOrdered By: Jasper Martinez on 06-14-2023 Calcium [Mass/Vol]9.0 mg/dL8.6-10.3FTrumbull Memorial HospitalCarbon dioxide, total [Moles/volume] in Serum or PlasmaOrdered By: Jasper Martinez on 60-21-4389QE7 [Moles/Vol]23.4 mmol/L21.0-31.0[facility] Chloride [Moles/volume] in Serum or PlasmaOrdered By: Jasper Martinez 21-84-4519Htohlwoc [Moles/Vol]105 mmol/B70-945AtcyaqlelPromedica Defiance Regional Hospital Creatine kinase [Enzymatic activity/volume] in Serum or PlasmaOrdered By: Jasper Martinez on 47-34-8410IH [Catalytic activity/Vol]185 U/F94-284DhoowaypkPromedica Defiance Regional HospitalCreatinine [Mass/volume] in Serum or PlasmaOrdered By: Jasper Martinez on 01-73-6898Thiplcvjxw [Mass/Vol]0.89 mg/dL0.70-1.30[facility] HospitalEosinophils Auto (Bld) [#/Vol]Ordered By: Jasper Martinez on 55-49-3770Mrdymtefklq (Bld) [#/Vol]0.8 10*3/uL0.0-0.45[facility] HospitalEosinophils/100 WBC Auto (Bld)Ordered By: Jasper Martinez on 27-44-0468Xoxkthxnhki/100 WBC (Bld)9.6 %.[facility] HospitalErythrocyte distribution width Auto (RBC) [Ratio]Ordered By: Jasper Martinez on 97-87-1001Prwripqycyk distribution width (RBC) [Ratio]14.4 %12.0-14.8 [facility] HospitalGlobulin Calc (S) [Mass/Vol]Ordered By: Jasper Martinez on 70-69-0727Ztcgdruu (S) [Mass/Vol]2.5 g/dLPromedica Defiance Regional HospitalGlucose [Mass/volume] in Serum or PlasmaOrdered By: Jasper Martinez on 80-83-5579Dnkqvix [Mass/Vol]144 mg/gP57-012VmyhjksbyPromedica Defiance Regional HospitalComment on above:ADA recommended reference rangeRandom Glucose Reference Range is dependent on time and content of last meal. Glucose of more than 200 mg/dL in a nonstressed, ambulatory subject supports the diagnosisof Diabetes Mellitus.Hematocrit Auto (Bld) [Volume fraction]Ordered By: Jasper Martinez on 61-49-1240Micqxlyuti (Bld) [Volume fraction]40.8 %38.8-50.0[facility] HospitalHemoglobin [Mass/volume] in BloodOrdered By: Jasper Martinez 25-14-6138Fmqjafaptz (Bld) [Mass/Vol]14.3 g/dL13.0-17.0[facility] HospitalINR in Platelet poor plasma by Coagulation assayOrdered By: Jasper Martinez on 55-42-0282CLM Coag (PPP) [Relative time]1.1 {INR}[facility] HospitalComment on above:INR Therapeutic Range A) Pre- and Peroperative OAT started two weeks before surgery. NOT HIP SURGERY: 1.5 - 2.5 HIP SURGERY: 2 - 3B) Primary and secondary prevention of venous THROMBOSIS: 2 - 3C) Active venous thrombosis, pulmonary embolismand prevention of recurrent venous thrombosis: 2 - 3D) Prevention of arterial thromboembolismincluding patients with mechanical heart valves: 3 - 4.5Leukocytes [#/volume] corrected for nucleated erythrocytes in Blood by Automated counOrdered By: Jasper Martinez on 14-00-3903KVQ corrected for nucl RBC Auto (Bld) [#/Vol]8.1 10*3/uL 4.1-10.5FTrumbull Memorial HospitalLymphocytes Auto (Bld) [#/Vol]Ordered By: Jasper Martinez on 91-54-5568Vgfichlllgl (Bld) [#/Vol]1.5 10*3/uL1.00-4.8 [facility] HospitalLymphocytes/100 WBC Auto (Bld)Ordered By: Jasper Martinez on 84-48-0555Surulhgdieb/100 WBC (Bld)18.5 %.[facility] Auto (RBC) [Entitic mass]Ordered By: Jasper Martinez on 81-02-5750TYI (RBC) [Entitic mass]30.1 pg27.5-35.2FMercy Health Willard HospitalHC Auto (RBC) [Mass/Vol]Ordered By: Jasper Martinez on 03-07-4406GNZJ (RBC) [Mass/Vol]34.9 g/dL32.5-35.6FTrumbull Memorial HospitalMCV Auto (RBC) [Entitic vol]Ordered By: Jasper Martinez on 01-42-4473LGW (RBC) [Entitic vol]86.2 fL83.5-101[facility] HospitalMagnesium [Mass/volume] in Serum or PlasmaOrdered By: Jasper Martinez on 06-14-2023 Magnesium [Mass/Vol]2.0 mg/dL1.9-2.7FTrumbull Memorial HospitalMonocyte distribution width [Entitic volume] in Blood by AutomatedOrdered By: Jasper Martinez on 21-68-1066Ockocmfw distribution width Auto (Bld) [Entitic vol]16.39 % 0.00-20.00[facility] HospitalMonocytes Auto (Bld) [#/Vol]Ordered By: Jasper Martinez on 38-29-3881Pljkaotcc (Bld) [#/Vol]0.8 10*3/uL0.0-0.8 [facility] HospitalMonocytes/100 WBC Auto (Bld)Ordered By: Jasper Martinez on 45-34-8076Pfhotzhei/100 WBC (Bld)10.1 %.[facility] HospitalNatriuretic peptide B [Mass/Vol]Ordered By: Jasper Martinez on 22-48-0288Sizxhaxqfaw peptide B (Bld) [Mass/Vol]67.0 pg/mL5-100[facility] HospitalNeutrophils Auto (Bld) [#/Vol]Ordered By: Jasper Martinez on 67-01-7730Qctzbowqxzn (Bld) [#/Vol]4.9 10*3/uL1.8-7.7FTrumbull Memorial HospitalNeutrophils/100 WBC Auto (Bld)Ordered By: Jasper Martinez on 06-57-0084Rquwuhuosuw/100 WBC (Bld)61.2 %.[facility] HospitalNo Panel InformationOrdered By: Jasper Martinez on 92-86-4529Smvpuelrt GFR (CKD-EPI)> 60.0 mL/MinPromedica Defiance Regional HospitalPharmacy Creatinine Clearance (Chem92.42[facility] HospitalNucleated erythrocytes [Presence] in Blood by Automated countOrdered By: Jasper Martinez on 02-63-9754Nmczijvkz RBC Auto Ql (Bld)0.1 /100{WBC}0-0.5FTrumbull Memorial HospitalPlatelet mean volume Auto (Bld) [Entitic vol]Ordered By: Jasper Martinez on 78-34-1464Qojogdqx mean volume (Bld) [Entitic vol]8.4 fL6.6-10.1 [facility] HospitalPlatelets Auto (Bld) [#/Vol]Ordered By: Jasper Martinez on 20-65-6559Fvafegcuf (Bld) [#/Vol]181 10*3/xQ932-703 [facility] HospitalPotassium [Moles/volume] in Serum or Plasma Ordered By: Jasper Martinez on 49-09-4713Ueqloijdx [Moles/Vol]3.9 mmol/L 3.5-5.1FTrumbull Memorial HospitalProtein [Mass/volume] in Serum or Plasma Ordered By: Jasper Martinez on 94-20-8801Mdewmfo [Mass/Vol]6.6 g/dL6.4-8.9 [facility] HospitalProthrombin time (PT)Ordered By: Jasper Martinez on 65-65-2746MW Coag (PPP) [Time]12.1 s9.0-12.9[facility] HospitalComment on above:A hematocrit value greater than 55% may lead to inaccurate results in coagulation testing. Patientshaving hematocrit values >55% require a special collection tube for coagulation studies. Please contact the laboratory at [phone] for redraw instructions.RBC Auto (Bld) [#/Vol]Ordered By: Jasper Martinez on 02-43-4646QPY (Bld) [#/Vol]4.74 10*6/uL3.90-5.60 [facility] Systemerum or plasma albumin/globulin mass ratio Ordered By: Jasper Martinez on 55-72-2193Gywtzoq/Globulin [Mass ratio]1.6 {ratio}[facility] Systemerum or plasma anion gap determination Ordered By: Jasper Martinez on 54-00-4392Jhryy gap [Moles/Vol]11.5 mmol/L 6.0-15.0[facility] Systemodium [Moles/volume] in Serum or PlasmaOrdered By: Jasper Martinez on 87-94-8736Hqlauh [Moles/Vol]136 mmol/L 136-145[facility] HospitalTroponin I.cardiac [Mass/volume] in Serum or Plasma by Detection limit <= 0.01 ng/Ordered By: Jasper Martinez on 47-75-3062Arxbiaut I.cardiac DL <= 0.01 ng/mL [Mass/Vol]26.8 pg/mL0.0-20.0 [facility] HospitalUrea nitrogen [Mass/volume] in Serum or Plasma Ordered By: Jasper Martinez on 36-36-7444Zvnv nitrogen [Mass/Vol]12 mg/dL7-25 [facility] HospitalWBC Auto (Bld) [#/Vol]Ordered By: Jasper Martinez on 45-27-0219WJP (Bld) [#/Vol]8.1 10*3/uL4.1-10.5FTrumbull Memorial HospitalCardiac echo study Procedureon 98-27-5580Jksopzd by an unspecified provider.[facility]UnSum[facility] Alanine aminotransferase [Enzymatic activity/volume] in Serum or PlasmaOrdered By: Sera Flower on 69-79-1366JWE [Catalytic activity/Vol]51 U/L7-52[facility] HospitalAlbumin [Mass/volume] in Serum or Plasma by Bromocresol green (BCG) dye binding methoOrdered By: Sera Flower on 95-11-2369Oedjusd BCG dye [Mass/Vol]4.4 g/dL3.5-5.7FTrumbull Memorial HospitalAlkaline phosphatase [Enzymatic activity/volume] in Serum or PlasmaOrdered By: Sera Flower on 44-95-0642ATL [Catalytic activity/Vol]61 U/I76-781ZguumbfiePromedica Defiance Regional HospitalAspartate aminotransferase [Enzymatic activity/volume] in Serum or PlasmaOrdered By: Sera Flower on 45-31-6523UNI [Catalytic activity/Vol]39 U/L 13-39[facility] HospitalBilirubin.total [Mass/volume] in Serum or PlasmaOrdered By: Sera Flower on 12-27-6125Pdwqoqacy [Mass/Vol]0.7 mg/dL0.3-1.0 [facility] HospitalCalcium [Mass/volume] in Serum or PlasmaOrdered By: Sera Flower on 87-08-3123Kmxzoib [Mass/Vol]9.1 mg/dL8.6-10.3FTrumbull Memorial HospitalCarbon dioxide, total [Moles/volume] in Serum or Plasma Ordered By: Sera Flower on 16-37-5910BE5 [Moles/Vol]28.0 mmol/L21.0-31.0 [facility] HospitalChloride [Moles/volume] in Serum or Plasma Ordered By: Sera Flower on 91-35-4774Ofqudsna [Moles/Vol]103 mmol/L98-107 [facility] HospitalCreatinine [Mass/volume] in Serum or Plasma Ordered By: Sera Flower on 73-91-0992Wgfewffizk [Mass/Vol]1.00 mg/dL0.70-1.30 [facility] HospitalGlobulin Calc (S) [Mass/Vol]Ordered By: Sera Flower on 23-04-4682Dzijvytc (S) [Mass/Vol]1.7 g/dLPromedica Defiance Regional HospitalGlucose [Mass/volume] in Serum or PlasmaOrdered By: Sera Flower on 03-88-8746Kusbfqx [Mass/Vol]93 mg/zX73-433ScrxqukupPromedica Def[facility] Hospital Comment on above:ADA recommended reference rangeRandom Glucose Reference Range is dependent on time and content of last meal. Glucose of more than 200 mg/dL in a nonstressed, ambulatory subject supports the diagnosisof Diabetes Mellitus.No Panel InformationOrdered By: Sera Flower on 72-45-3252Nkxxwbvbn GFR (CKD-EPI)> 60.0 mL/MinPromedica Defiance Regional HospitalPharmacy Creatinine Clearance (Chem N/[facility] CenterNo Panel Informationon 79-68-5898FOUnited Hospital 250 DO Work Phone: Potassium [Moles/volume] in Serum or PlasmaOrdered By: Sera Flower on 44-30-5930Alsyjygkg [Moles/Vol]4.4 mmol/L3.5-5.1FTrumbull Memorial HospitalProtein [Mass/volume] in Serum or PlasmaOrdered By: Sera Flower on 48-13-1061Astmgyc [Mass/Vol]6.1 g/dL6.4-8.9[facility] Systemerum or plasma albumin/globulin mass ratioOrdered By: Sera Flower on 71-75-3282Dibxayl/Globulin [Mass ratio]2.6 {ratio}[facility] Systemerum or plasma anion gap determinationOrdered By: Sera Flower on 99-50-6205Qmltz gap [Moles/Vol]11.4 mmol/L6.0-15.0[facility] Systemodium [Moles/volume] in Serum or PlasmaOrdered By: Sera Flower on 08-18-1275Tnhkup [Moles/Vol]138 mmol/I463-800YmyxyzuixPromedica Defiance Regional Hospital Urea nitrogen [Mass/volume] in Serum or PlasmaOrdered By: Sera Flower on 39-26-4643Qhfq nitrogen [Mass/Vol]15 mg/dL7-25[facility] CARDIAC STRESS/REST INJECTIONon 01-47-9123BGX CARDIAC STRESS/REST INJECTION Patient Name: DEMARCUS CALDERON STUDY: MYOCARDIAL PERFUSION STRESS TEST WITH LEXISCAN Performing facility[facility] [address] [place] [address], [address], [place] [address] [facility] Provider: Rene Cortez MD, FACC PCP: Dr. Hunter Flower Supervising provider: Danna Davis DO, [facility] INDICATION: CAD; HTN Hyperlipidemia Ischemic cardiomyopathy HISTORY: Gender: M; Age: 68 y/o ; Height: 172.72 cm; Weight: 800.2092594 kg. CAD; High Cholesterol; HTN; Quit smoking 38 years ago. Cardiac catheterization on 2009. PTCA on 2009. COMPARISON: Previous nuclear testing completed at [facility]. ACCESSION NUMBER(S): [id number]; [id number]; [id number] ORDERING CLINICIAN: RENE CORTEZ TECHNIQUE: TWO DAY [...] interval changes are seen. Electronically signed by: Hoda WILEYEvans Army Community HospitalNo Panel Informationon 87-64-8440NzcgprSA-[facility]rell Dalal DO Work Phone: Office Visit (Cardiology)on 95-24-6423Ucdoqa-up visit Diagnoses/Problems Assessed CAD (coronary artery disease) [...] lose weight.; Status:Complete - Retrospective Authorization; Done: [id number] Essential hypertension, Ischemic cardiomyopathy Renew: Carvedilol 6.25 [...] emphasis on low-calorie diet Rene Cortez MD, [facility] Surgical History Problems History of Coronary artery [...] IN 1984 No a (more content not included)...NormalUH TouchworksTobacco Screening.on 32-11-1527Lmcdd depression screening ybuurbrtidFnPZ-Dizznhelqt-Sjkbwrgv 250 DO Work Phone: Fall risk assessmenta) No falls within the last year IZ-Jtpxphewow-Jjcclptq 250 DO Work Phone: Tobacco use status CPHSb) ItHH-Qwnolkpgmc-Seyokejj 250 DO Work Phone: MRI Soft Tissue Neck w/o + w/on 28-92-8031XNG Soft Tissue Neck w/o + w/CLINICAL HISTORY: Right hemifacial spasm and some weakness. [...] NECK MRI. Report reported and signed by Tex Walsh on 07/16/2022 1246NormalNortdiamond children's medical centern [place] Medical SpecialistMRI Brain w/o + w/on 73-26-3819MTW Brain w/o + w/EXAM: MRI Brain. Multi-sequence multiplanar imaging of the [...] and signed by Sean Trejo on 07/01/2022 0911[facility] SpecialistCNPNon 04-73-3800AWYCLcvbkrfdw (INTMLN) DEMARCUS CALDERON ([id number]) 1955 Date Time Provider Department 06/21/22 DEANDRA BENDER During your visit today, we recorded the following information about you: Delores Mccollum 06/21/2022 12:54 PM Signed [facility] called today. : 1955 Allergies: Codeine, Codeine-Guaifenesin, and Guaifenesin (home) [phone] (cell) Reason for call: Sasha F:[phone] Asking for the MRI orders and office notes to be faxed over to [facility]. Patient will be having them done there. Patient last appointment: Visit date not found The patients preferred pharmacy has been captured for this encounter? not asked Delores Heard [facility] 06/21/2022 2:03 PM [...] (None) Encounter Status:Closed by ORQUIDEA SIBLEY on 06/21/22NoGuernsey Memorial HospitalXR Ribs w/ PA Chest Left*on 89-31-6810VB Ribs w/ PA Chest Left* CLINICAL HISTORY: [...] RIB SERIES. Report reported and signed by Tex Walsh on 03/13/2022 1254[facility]-FairhillXR Chest 2 Views*on 14-22-0151EK Chest 2 Views* COMPARISON: none TECHNIQUE: Upright PA and lateral views of the chest were obtained. FINDINGS: Heart is normal in size. Lungs are clear and well expanded. No pleural effusion or pneumothorax. The bony thorax is unremarkable. IMPRESSION: NO ACUTE CARDIOPULMONARY ABNORMALITY. Report reported and signed by AMALIA LOGAN on 01/17/2022 1243[facility]-FairhillTobacco Screening.on 03-05-1898Usqbn depression screening assessmentNoConfluence Health Hospital[facility]-Terrell 250 DO Work Phone: Fall risk assessmenta) No falls within the last year -[facility] 250 DO Work Phone: Tobacco use status CPHSb) NoM-[facility] 250 DO Work Phone: CT Chest w/Contraston 61-81-5179LF Chest w/Contrast History: Hemoptysis Technique: Multiple contiguous [...] and signed by AMALIA LOGAN on 08/04/2021 1346NormalNorthern North [place] Medical SpecialistComplete Blood Count with Auto Diffon 07-29-2021 Basophils (Bld) [#/Vol]0.05 10*3/uLNormal0.00-0.20Northern [place] Medical SpecialistComment on above:Performed By: #### CMP, CBCAD #### [facility] [address] [place], [place] [id number]/100 WBC (Bld)0.8 %[facility] SpecialistComment on above:Performed By: #### CMP, CBCAD #### [facility] [address] [place], [place] [id number] (Bld) [#/Vol]0.46 10*3/uLNormal0.02-0.50[facility] SpecialistComment on above:Performed By: #### CMP, CBCAD #### [facility] [address] [place], [place] [id number]/100 WBC (Bld)7.7 %[facility] SpecialistComment on above:Performed By: #### CMP, CBCAD #### [facility] [address] [place], [place] [id number] distribution width (RBC) [Ratio]13.3 %Normal 11.0-15.0[facility] SpecialistComment on above:Performed By: #### CMP, CBCAD #### [facility] [address] [place], [place] [id number] (Bld) [Volume fraction]42.2 %Ojdlii17.5-50.0 [facility] SpecialistComment on above:Performed By: #### CMP, CBCAD #### [facility] [address] [place], [place] [id number] (Bld) [Mass/Vol]14.5 g/eNDfjmhh94.0-17.1NorthUniversity [facility]als [facility] SpecialistComment on above:Performed By: #### CMP, CBCAD #### [facility] [address] [place], [place] [id number] (Bld) [#/Vol]1.6 10*3/uLNormal0.9-3.9NoCenterville SpecialistComment on above:Performed By: #### CMP, CBCAD #### [facility] [address] [place], [place] [id number]/100 WBC (Bld)26.1 %NormalNorthern North [place] Medical SpecialistComment on above:Performed By: #### CMP, CBCAD #### [facility] [address] [place], [place] [id number] (RBC) [Entitic mass]29.7 wpHhnfiw90.0-33.0NoCenterville SpecialistComment on above:Performed By: #### CMP, CBCAD #### [facility] [address] [place], [place] [id number] (RBC) [Mass/Vol]34.4 g/fGFojtoe74.0-36.0NoCenterville SpecialistComment on above:Performed By: #### CMP, CBCAD #### [facility] [address] [place], [place] [id number] (RBC) [Entitic vol]86 iTRlhtbd57-202Xhdfjity [place] [facility] SpecialistComment on above:Performed By: #### CMP, CBCAD #### [facility] [address] [place], [place] [id number] (Bld) [#/Vol]0.9 10*3/uLNormal0.2-0.9NoCent[place] SpecialistComment on above:Performed By: #### CMP, CBCAD #### [facility] [address] [place], [place] [id number]/100 WBC (Bld)14.6 %NormalNoCenterville SpecialistComment on above:Performed By: #### CMP, CBCAD #### [facility] [address] [place], [place] [id number] (Bld) [#/Vol]3.0 10*3/uLNormal1.5-7.8NoCent[place] SpecialistComment on above:Performed By: #### CMP, CBCAD #### [facility] [address] [place], [place] [id number]/100 WBC (Bld)50.5 %NormalNoCenterville SpecialistComment on above:Performed By: #### CMP, CBCAD #### [facility] [address] [place], [place] [id number] mean volume (Bld) [Entitic vol]10.90 fLNormal 7.50-12.50NortKettering Health Springfield SpecialistComment on above:Performed By: #### CMP, CBCAD #### [facility] [address] [place], [place] [id number] (Bld) [#/Vol]166 10*3/nVOgypqc798-416Yziacbtk [place] [facility] SpecialistComment on above:Performed By: #### CMP, CBCAD #### [facility] [address] [place], [place] [id number] (Bld) [#/Vol]4.89 10*6/uLNormal4.20-5.80NortKettering Health Springfield SpecialistComment on above:Performed By: #### CMP, CBCAD #### [facility] [address] [place], [place] [id number]-TF89.2 vASxxwfu34.0-50.0NortKettering Health SpringfieldFreelance Graphic Designer Comment on above:Performed By: #### CMP, CBCAD #### [facility] [address] [place], [place] [id number] (Bld) [#/Vol]5.9 10*3/uLNormal3.8-11.0NortKettering Health Springfield SpecialistComment on above:Performed By: #### CMP, CBCAD #### [facility] [address] [place], [place] [id number] Metabolic Panelon 45-35-3432Bqiqmpb [Mass/Vol] 4.6 g/dLNormal3.6-5.1[facility] SpecialistComment on above:Performed By: #### CMP, CBCAD #### [facility] [address] [place], [place] [id number]/Globulin [Mass ratio]2.7 {ratio}High1.0-2.5NoCenterville SpecialistComment on above:Performed By: #### CMP, CBCAD #### [facility] [address] [place], [place] [id number] [Catalytic activity/Vol]74 U/TOszobd80-907Orzcwxmw [place] Medical SpecialistComment on above:Performed By: #### CMP, CBCAD #### [facility] [address] [place], [place] [id number] [Catalytic activity/Vol]55 U/LHigh9-46Northern [place] Medical SpecialistComment on above:Result Comment: 04/27/2021 Female reference range changed.Performed By: #### CMP, CBCAD #### [facility] [address] [place], [place] [id number] gap [Moles/Vol]16 mmol/ZHpmsas57-87Yhibhwjw [place] Medical SpecialistComment on above:Result Comment: Effective 06/02/2019 reference range changed.Performed By: #### CMP, CBCAD #### [facility] [address] [place], [place] [id number] [Catalytic activity/Vol]39 U/XNglkah76-69Aezpfqqp [place] [facility] SpecialistComment on above:Performed By: #### CMP, CBCAD #### [facility] [address] [place], [place] [id number]/CREA13 RatioNormal6-22NortKettering Health [facility] Township Freelance Graphic Designer Comment on above:Performed By: #### CMP, CBCAD #### [facility] [address] [place], [place] [id number] [Mass/Vol]9.0 mg/dLNormal8.6-10.2[facility] [place] Medical SpecialistComment on above:Performed By: #### CMP, CBCAD #### [facility] [address] [place], [place] [id number] [Moles/Vol]107 mmol/UVsvuqp91-689Gkzszekw [place] Medical SpecialistComment on above:Performed By: #### CMP, CBCAD #### [facility] [address] [place], [place] [id number] [Moles/Vol]20 mmol/FIblbbo48-27Lumkoiuc [place] Medical SpecialistComment on above:Performed By: #### CMP, CBCAD #### [facility] [address] [place], [place] [id number] [Mass/Vol]1.0 mg/dLNormal0.7-1.4NortKettering Health Springfield SpecialistComment on above:Performed By: #### CMP, CBCAD #### [facility] [address] [place], [place] [id number] mL/min/1.67v6Hmeqao>60NortKettering Health Springfield SpecialistComment on above:Performed By: #### CMP, CBCAD #### [facility] [address] [place], [place] [id number] mL/min/1.80z3Lycqpz>60NortKettering Health Springfield SpecialistComment on above:Performed By: #### CMP, CBCAD #### [facility] [address] [place], [place] [id number] (S) [Mass/Vol]1.7 g/dLLow1.9-3.7Nortdiamond children's medical centern [facility] SpecialistComment on above:Performed By: #### CMP, CBCAD #### [facility] [address] [place], [place] [id number] [Mass/Vol]121 mg/jFHfhi73-21Kawriwav [place] [facility] SpecialistComment on above:Result Comment: For FASTING Glucose --- ADA reference ranges: Normal 65-99 mg/dl Prediabetes 100-125 Diabetes >/= 126Performed By: #### CMP, CBCAD #### [facility] [address] [place], [place] [id number] [Moles/Vol]4.2 mmol/LNormal3.5-5.5NortKettering Health Springfield SpecialistComment on above:Performed By: #### CMP, CBCAD #### [facility] [address] [place], [place] [id number] [Mass/Vol]6.3 g/dLNormal6.1-8.1[facility] SpecialistComment on above:Performed By: #### CMP, CBCAD #### [facility] [address] [place], [place] [id number] [Moles/Vol]139 mmol/RMrynsm932-304Wdubqrcw [place] [facility] SpecialistComment on above:Performed By: #### CMP, CBCAD #### [facility] [address] [place], [place] [id number]<0.3NormalNoCenterville SpecialistComment on above:Performed By: #### CMP, CBCAD #### [facility] [address] [place], [place] [id number] nitrogen [Mass/Vol]12 mg/dLNormal7-25NortKettering Health Springfield SpecialistComment on above:Performed By: #### CMP, CBCAD #### [facility] [address] [place], [place] [id number] (with Creat)on 57-33-9887zGYS<1.2LowNorthLake County Memorial Hospital - WestComment on above:Result Comment: Unable to calculate mALB/Crea ratio, mALB is <1.2 mg/dL mALB reference range not established.Performed By: #### mALBC #### [facility] [address] [place], [place] [id number] mg/rUBtpfml12-770Vlfxlpmz [place] Freelance Graphic Designer Comment on above:Performed By: #### mALBC #### [facility] [address] [place], [place] [id number] Specific Antigen, Totalon 69-83-1423QARN3.330 ng/mL Normal<4.000NoPeoples HospitalComment on above:Result Comment: PSA Test Method: ECLIA/Brandi e 601Performed By: #### PSA #### [facility] [address] [place], [place] [id number] - URINALYSIS,COMPLETEon 01-50-7256Djfhejuzup (U)CLEARNormal CLEARRegency Hospital CompanyComment on above:Order Comment: [facility] Testing performed at: QPT, [employer] [facility], [address] [place] [address], [address] [place] [address], [place], [address], Local Government Legislator: Rafi Agustin MD [facility] Collection Date/Time: [facility] Results Received Date/Time: [facility] Reported Date/Time: [id number] By: #### 32F #### [facility] Default [address] [place], [place] [address]APJROYKYYRPQ SEENNormalNONE SEENNortdiamond children's medical centern [facility] CenterFreelance Graphic Designer Comment on above:Order Comment: [facility] Testing performed at: QPT, [employer] [facility], [address] , [address] [place] [address], [address] [place] [address], Local Government Legislator: Rafi Agustin MD [facility] Collection Date/Time: [facility] Results Received Date/Time: [facility] Reported Date/Time: [id number] By: #### 32F #### [facility] [address] [place], [place] [address]Jizssvjmh Ql (U)NegativeNormalNEGATIVErtKettering Health [place] [facility] SpecialistComment on above:Order Comment: [facility] Testing performed at: [employer], [employer] [facility], [address] , [address] [place] [address], [address] [place] [address], Local Government Legislator: Rafi Agustin MD [facility] Collection Date/Time: [facility] Results Received Date/Time: [facility] Reported Date/Time: [id number] By: #### 32F #### [facility] Default [address] [place], [place] [address]Mpowg (U)YELLOWNormalYELLOWNortdiamond children's medical centern [place] Freelance Graphic Designer Comment on above:Order Comment: [facility] Testing performed at: [facility], [employer], [address] , [address] [place] [address], [address] [place] [address], Local Government Legislator: Rafi Agustin MD [facility] Collection Date/Time: [facility] Results Received Date/Time: [facility] Reported Date/Time: [id number] By: #### 32F #### [facility] Default [address] [place], [place] [address]Tdncyci Ql (U)NegativeNormalNEGATIVENortdiamond children's medical centern [place] Medical SpecialistComment on above:Order Comment: [facility] Testing performed at: [facility], [employer] [facility], [address] , [address] [place] [address], [address] [place] [address], Local Government Legislator: Rafi Agustin MD [facility] Collection Date/Time: [facility] Results Received Date/Time: [facility] Reported Date/Time: [id number] By: #### 32F #### [facility] Default [address] [place], [place] [address]RBEXCIX CASTNONE SEENNormalNONE SEENWilson Health SpecialistComment on above:Order Comment: [facility] Testing performed at: [facility], [employer] [facility], [address] , [address] [place] [address], [address] [place] [address], Local Government Legislator: Rafi Agustin MD [facility] Collection Date/Time: [facility] Results Received Date/Time: [facility] Reported Date/Time: [id number] By: #### 32F #### [facility] Default [address] [place], [place] [address]Soljxkv Ql (U)NegativeNormalNEGChildren's Hospital of Columbus SpecialistComment on above:Order Comment: [facility] Testing performed at: [facility], [employer] [facility], [address] , [address] [place] [address], [address] [place] [address], Local Government Legislator: Rafi Agustin MD [facility] Collection Date/Time: [facility] Results Received Date/Time: [facility] Reported Date/Time: [id number] By: #### 32F #### [facility] Default [address] [place], [place] [address]Yceqtqrgo esterase Test strip Ql (U)NegativeNormalNEGUniversity Hospitals Elyria Medical Center SpecialistComment on above:Order Comment: [facility] Testing performed at: [facility], [employer] [facility], [address] , [address] [place] [address], [address] [place] [address], Local Government Legislator: Rafi Agustin MD [facility] Collection Date/Time: [facility] Results Received Date/Time: [facility] Reported Date/Time: [id number] By: #### 32F #### [facility] Default [address] [place], [place] [address]Xhkbtrl Ql (U)NegativeNormalNEGATIVENoCenterville SpecialistComment on above:Order Comment: [facility] Testing performed at: [employer], [employer] [facility], [address] [facility], [address] [place] [address], [address] [place] [address], Local Government Legislator: Rafi Agustin MD [facility] Collection Date/Time: [facility] Results Received Date/Time: [facility] Reported Date/Time: [id number] By: #### 32F #### [facility] Default [address] [place], [place] [address]BSOQGS BLOODNegativeNormalNEGATIVEWilson Health SpecialistComment on above:Order Comment: [facility] Testing performed at: [employer], [employer] [facility], [address] , [address] [place] [address], [address] [place] [address], Local Government Legislator: Rafi Agustin MD [facility] Collection Date/Time: [facility] Results Received Date/Time: [facility] Reported Date/Time: [id number] By: #### 32F #### [facility] Default [address] [place], [place] [address]rN (U)6.5 [pH]Normal5.0-8.0NoCenterville Specialist Comment on above:Order Comment: [facility] Testing performed at: [employer], [employer] [facility], [address] , [address] [place] [address], [address] [place] [address], Local Government Legislator: Rafi Agustin MD [facility] Collection Date/Time: [facility] Results Received Date/Time: [facility] Reported Date/Time: [id number] By: #### 32F #### [facility] Default [address] [place], [place] [address]Aamrcvk Ql (U)NegativeNormalNEGATIVENortKettering Health Springfield SpecialistComment on above:Order Comment: [facility] Testing performed at: [facility], [employer] [facility], [address] [place] [address], [address] [place] [address], [address] [place] [address], Local Government Legislator: Rafi Agustin MD [facility] Collection Date/Time: [facility] Results Received Date/Time: [facility] Reported Date/Time: [id number] By: #### 32F #### [facility] Default [address] [place], [place] [address]DHBSPMS SEENNormal< OR = 2[facility] SpecialistComment on above:Order Comment: [facility] Testing performed at: [facility], [employer] [facility], [address] [place] [address], [address] [place] [address], [address] [place] [address], Local Government Legislator: Rafi Agustin MD [facility] Collection Date/Time: [facility] Results Received Date/Time: [facility] Reported Date/Time: [id number] By: #### 32F #### [facility] Default [address] [place], [place] [address]Sabgwwok gravity (U) [Rel density]1.065Afotcv0.001-1.035NortKettering Health Springfield SpecialistComment on above:Order Comment: [facility] Testing performed at: [facility], [employer] [facility], [address] [place] [address], [address] [place] [address], [address] [place] [address], Local Government Legislator: Rafi Agustin MD [facility] Collection Date/Time: [facility] Results Received Date/Time: [facility] Reported Date/Time: [id number] By: #### 32F #### [facility] Default [address] [facility] [place] [address]TSSNCNED EPITHELIAL CELLSNONE SEENNormal< OR = 5[facility] SpecialistComment on above:Order Comment: [facility] Testing performed at: [employer], [employer] [facility], [address] [place] [address] Rd, [address] [place], [address], Local Government Legislator: Rafi Agustin MD [facility] Collection Date/Time: [facility] Results Received Date/Time: [facility] Reported Date/Time: [id number] By: #### 32F #### [facility] Default [address] [place], [place] [address]EMNQZHL SEENNormal< OR = 5[facility] SpecialistComment on above:Order Comment: [facility] Testing performed at: [facility], [employer] [facility], [address] [facility], [address] [place], [address], Local Government Legislator: Rafi Agustin MD [facility] Collection Date/Time: [facility] Results Received Date/Time: [facility] Reported Date/Time: [id number] By: #### 32F #### [facility] Default [address] [place], [place] [address]Lg Panel InformationJ.W. Ruby Memorial Hospital Vital Signs Date TimeVital SignValuePerforming UkhwpmbjlGofdiaof35-41-9601 09:46-0400Body ualfcq327.7 cmKiya Richmond LPN CMA-BOOM CAT OPERATOR Work Phone: [facility]05-30-2025 09:46-0400 Body mass index (BMI) [Ratio]33.82 kg/p1DxqczKiya Richmond LPN CMA-BOOM CAT OPERATOR Work Phone: [facility]05-30-2025 09:46-0400 Body doobxl552.88 kgKiya Richmond LPN CMA-BOOM CAT OPERATOR Work Phone: [facility]05-30-2025 09:46-0400 Diastolic blood thzvldxo39 mm[Hg]Kiya Richmond LPN CMA-BOOM CAT OPERATOR Work Phone: [facility]05-30-2025 09:46-0400 Heart rate84 /Saad Richmond LPN CMA-BOOM CAT OPERATOR Work Phone: [facility]05-30-2025 09:46-0400 Systolic blood wnrkcoge566 mm[Hg]Kiya Richmond LPN CMA-BOOM CAT OPERATOR Work Phone: [facility]05-24-2025 13:00-0400 Diastolic blood pezrddwe31 mm[Hg]Sera Flower MD Work Phone: [facility]05-24-2025 13:00-0400 Heart rate75 /minSera Flower MD Work Phone: [address], [place] 480[address]05-24-2025 13:00-0400 Respiratory rate18 /minSera Flower MD Work Phone: 9(095)099-[address] [place], [place] [address]602705-24-2025 13:00-0400 SaO2% (BldA) [Mass fraction]94 %Sera Flower MD Work Phone: 1(533)314-[address] [place], [place] [address]60[address]05-24-2025 13:00-0400 Systolic blood fntuxnht617 mm[Hg]Sera Flower MD Work Phone: 9(591)396-[address] [place], [place] [address]60[address]05-24-2025 12:00-0400 Body nilgqntoxcd08.9 [degF]Sera Flower MD Work Phone: 6(060)651-[address] [place], [place] [address]60[address]05-24-2025 09:00-0400 Inhaled oxygen flow rate2 L/minSera Flower MD Work Phone: 4(916)477-[address] [place], [place] [address]60[address]05-24-2025 05:22-0400 Body cxevuf73.9 kgSera Flower MD Work Phone: 1(474)055-[address] [place], [place] [address]60[address]05-23-2025 15:36-0400 Body ogvtym848.72 cmRmartha Flower MD Work Phone: [address], [place] 480[address]04-30-2025 13:29-0400 Body zudhrv658.7 cmSally Mancuso ROLLER SETTER Work Phone: noF[facility] HospitalKnfmrxehbe38-80-0474 13:29-0400Body mass index (BMI) [Ratio]36.64 kg/m2Sally Mancuso ROLLER SETTER Work Phone: noF[facility] HospitalHnixufigbi98-76-1831 13:29-0400Body zeppuh017.32 kgGina Risaliti ROLLER SETTER Work Phone: noF[facility] HospitalKwniiphclo80-98-7555 13:29-0400Diastolic blood yqhnrbmu57 mm[Hg]Sally Risaliti ROLLER SETTER Work Phone: [facility] HospitalKutkbdldoa14-57-9746 13:29-0400Heart rate79 /min Sally Risaliti ROLLER SETTER Work Phone: noF[facility] HospitalRrxcazwoir21-58-3541 13:29-7751NuP0% (BldA) [Mass fraction]96 %Sally Risaliti ROLLER SETTER Work Phone: noF[facility] HospitalPjyifevsei59-38-0523 13:29-0400Systolic blood buyabizr891 mm[Hg]Sally Risaliti ROLLER SETTER Work Phone: [facility] HospitalZhmkdespsg67-57-2310 09:14-0500Body yftslw563.7 cmGina Risaliti ROLLER SETTER Work Phone: [facility] HospitalTfezilfwxo91-94-4631 09:14-0500Body mass index (BMI) [Ratio]35.88 kg/m2Gina Risaliti ROLLER SETTER Work Phone: noFulton [facility] HospitalVnfvcpauus23-92-1619 09:14-0500Body fomfth141.05 kgGina Risaliti ROLLER SETTER Work Phone: [facility] HospitalHkhgpitlsa40-99-7964 09:14-0500Diastolic blood wxpihkje41 mm[Hg]Sally Risaliti ROLLER SETTER Work Phone: [facility] HospitalKwyluqgynh62-58-5001 09:14-0500Heart rate71 /min Sally Risaliti ROLLER SETTER Work Phone: TLFulton State HospitalQkndfgulse42-62-4787 09:14-5315PfT3% (BldA) [Mass fraction]98 %Sally Risaliti ROLLER SETTER Work Phone: noFult[facility] HospitalOntgbuoscu07-40-2766 09:14-0500Systolic blood xjizfdrb370 mm[Hg]Sally Risaliti ROLLER SETTER Work Phone: noFulton [facility] HospitalRytpkusiqm85-63-7339 14:52-0500Respiratory rate16 /minRattan COOK [facility] [place] 973752-19-2024 08:53-0500Body mokbjf952.7 cmRene Cortez MD Work Phone: 6(077)488-[address] [place], [place] 02[address]112-19-2024 08:53-0500 Body mass index (BMI) [Ratio]36.28 kg/v5WhzokmRene Cortez MD Work Phone: 7(918)[address]12-19-2024 08:53-0500 Body piovio333.23 kgRene Cortez MD Work Phone: 1(886)[address]12-19-2024 08:53-0500 Diastolic blood uapxbxmx92 mm[Hg]Rene Cortez MD Work Phone: 1(920)[address]12-19-2024 08:53-0500 Heart rate60 /minRene Cortez MD Work Phone: 8(006)006-[address] [place], [place] 02[address]112-19-2024 08:53-0500 Systolic blood ferilfwt698 mm[Hg]Rene Cortez MD Work Phone: 7(068)989-[address] [place], [place] 0217112-11-2024 17:27-0500 Body mass index (BMI) [Ratio]36.67 kg/z4ZudwchtGurjit Busby ROLLER SETTER Work Phone: 1(849)762-[address] [place], [place] [address]Pmywnzbypn32-26-7013 17:27-0500Body temperature 97.3 [degF]Gurjit Busby ROLLER SETTER Work Phone: 1(784)[address] [place], [place] [address]Doowrfwuwx56-01-7669 17:27-0500Body zisnnf465.41 kgGurjit Busby ROLLER SETTER Work Phone: 1(995)[address] [place], [place] [address]Rxnkvfyfky40-95-3059 17:27-0500Diastolic blood aofysiyc08 mm[Hg]Gurjit Busby ROLLER SETTER Work Phone: 1(316)[address] [place], [place] [address]Rhpffztfjr30-21-9489 17:27-0500Heart rate73 /min Gurjit Busby ROLLER SETTER Work Phone: 1(018)843-[address] [place], [place] [address]Kzlxasmujc83-48-6556 17:27-0326PyC8% (BldA) [Mass fraction]97 %Gurjit Busby ROLLER SETTER Work Phone: [facility] HospitalKqnguqtedl60-96-6376 17:27-0500Systolic blood wgcqttqi207 mm[Hg]Gurjit Busby ROLLER SETTER Work Phone: [facility] HospitalAmyltwfvia35-58-9559 11:59-0500Blood Pressure LocationJENNIFER ADRIÁN [facility] [place] 973752-02-2024 11:59-0500Diastolic blood wpuklatm68 mm[Hg]SU ADRIÁN [facility] [place] 973752-02-2024 11:59-0500Heart rate63 /minJENNIFER ADRIÁN [facility] [place] 973752-02-2024 11:59-0500Systolic blood xexsebmj391 mm[Hg]SU ADRIÁN [facility] [place] 973751-20-2024 10:11-0500Diastolic blood iitgfzsk57 mm[Hg]SU ADRIÁN [facility] [place] 973751-20-2024 10:11-0500Mean blood mm[Hg]SU ADRIÁN [facility] [place] 973751-20-2024 10:11-0500Systolic blood ymmzomxd755 mm[Hg]SU ADRIÁN [facility] [place] 973751-20-2024 09:45-0500Blood Pressure LocationJENNIFER ADRIÁN [facility] [place] 973751-20-2024 09:45-0500Body uwjaylhqqlo38.6 [degF]SU ADRIÁN [facility] [place] 973751-20-2024 09:45-0500Diastolic blood vduyqkci14 mm[Hg]SU COOK [facility] [place] 973751-20-2024 09:45-0500Heart rate65 /minSU COOK [facility] [place] 973751-20-2024 09:45-0500Systolic blood kwgpiquw914 mm[Hg]SU COOK [facility] [place] 973750-30-2024 13:03-0400Body suupsz421.7 cmRmartha Flower MD Work Phone: [facility] HospitalBpbnqndhsf18-25-5246 13:03-0400Body mass index (BMI) [Ratio]35.88 kg/l7WhtuucSera Flower MD Work Phone: [facility] HospitalWpuiezeteg65-30-0247 13:03-0400Body zrhynf249.05 kgSera Flower MD Work Phone: [facility] HospitalIprfxgtswi30-70-8709 13:03-0400Diastolic blood mm[Hg]Sera Flower MD Work Phone: [facility] HospitalFcchqdryio97-59-9584 13:03-0400Heart rate77 /min Sera Flower MD Work Phone: [place] [address]Kcipokgxce89-80-6139 13:03-3834AjG8% (BldA) [Mass fraction]96 %Sera Flower MD Work Phone: [place] [address]Lilvdufiph63-62-9169 13:03-0400Systolic blood jlzampcx023 mm[Hg]Sera Flower MD Work Phone: [facility] HospitalJxcnyxrgeq39-02-0303 10:29-0400Body muyfww951.7 cmGinguanakito Mancuso NP Work Phone: noF[facility] HospitalYnqemctlag29-81-9718 10:29-0400Body mass index (BMI) [Ratio]35.43 kg/m2Gina Kimberlyaliti ROLLER SETTER Work Phone: 1(191)[address] [place], [place] 7182210-02-2024 10:29-0400Body gogdnq164.69 kgAlexusa Kimberlyaliti ROLLER SETTER Work Phone: 1(127)[address] [place], [place] 7182210-02-2024 10:29-0400Diastolic blood azcvdztv78 mm[Hg]Sally Risaliti ROLLER SETTER Work Phone: 1(781)[address] [place], [place] 7182210-02-2024 10:29-0400Heart rate67 /min Sally Risaliti ROLLER SETTER Work Phone: 1(906)[address] [place], [place] 7182210-02-2024 10:29-4184ZjM0% (BldA) [Mass fraction]97 %Sally Kimberlyaliti ROLLER SETTER Work Phone: 1(430)[address] [place], [place] 7182210-02-2024 10:29-0400Systolic blood otcqxryd469 mm[Hg]Sally Kimberlyaliti ROLLER SETTER Work Phone: 1(278)[address] [place], [place] 7182205-23-2024 09:25-0400Body imlxhg472.7 cmRene Cortez MD Work Phone: 1(524)[address]05-23-2024 09:25-0400 Body mass index (BMI) [Ratio]36.31 kg/b3DkjvpjRene Cortez MD Work Phone: 1(933)[address]05-23-2024 09:25-0400 Body .32 kgRene Cortez MD Work Phone: 8(413)712-[address] [place], [place] 0217105-23-2024 09:25-0400 Diastolic blood iiifhort22 mm[Hg]Rene Cortez MD Work Phone: 1(702)[address]05-23-2024 09:25-0400 Heart rate68 /minRene Cortez MD Work Phone: 1(791)[address]05-23-2024 09:25-0400 Systolic blood gablutfw946 mm[Hg]Rene Cortez MD Work Phone: 4(730)[address]02-03-2024 10:23-0500 Body mass index (BMI) [Ratio]35.28 kg/m2Pahellen Snyder DO Work Phone: [facility] HospitalQhdpaepvwn83-71-2507 10:23-0500Body temperature 97.81 [degF]Hosea Snyder DO Work Phone: [facility] HospitalDfdxxgfqfr11-82-6222 10:23-0500Body sqqooi108.23 kgPaul Claudio SORENSON Work Phone: [facility] HospitalPirlejxgph17-15-9471 10:23-0500Diastolic blood lkcahiwe61 mm[Hg]Hosea Snyder DO Work Phone: [facility] HospitalPnvkzoxuts57-75-0105 10:23-0500Heart rate86 /min Hosea Snyder DO Work Phone: [facility] HospitalHnjffxolbp30-69-5850 10:23-0500Respiratory rate18 /minPahellen Snyder DO Work Phone: [facility] HospitalXglmmrsyvq51-58-3993 10:23-8726JkF4% (BldA) [Mass fraction]94 %Hosea Snyder DO Work Phone: [facility] HospitalJoztjzvfhx11-72-4115 10:23-0500Systolic blood iyuqijwk907 mm[Hg]Hosea Snyder DO Work Phone: [facility] HospitalKpqvinitaa22-57-7860 14:25-0500Body temperature 97.7 [degF]MD Sera Flower Work Phone: [facility]01-18-2024 14:25-0500 Diastolic blood wqgirtzr26 mm[Hg]MD Sera Flower Work Phone: [facility]01-18-2024 14:25-0500 Heart rate78 /minMD Sera Flower Work Phone: [facility]01-18-2024 14:25-0500 Respiratory rate20 /minMD Sera Flower Work Phone: [facility]01-18-2024 14:25-0500 SaO2% (BldA) [Mass fraction]95 %MD Sera Flower Work Phone: [facility]01-18-2024 14:25-0500 Systolic blood kozpiqui826 mm[Hg]MD Sera Flower Work Phone: [facility]01-18-2024 11:48-0500 Body vikrtg507.72 cmMD Sera Flower Work Phone: [facility]01-18-2024 11:48-0500 Body .9 kgMD Sera Flower Work Phone: [facility]10-27-2023 09:34-0400 Body qkswti412.7 cmRene Cortez MD Work Phone: [facility]10-27-2023 09:34-0400 Body mass index (BMI) [Ratio]35.12 kg/t7DeufpdRene Cortez MD Work Phone: 1(622)088-01[facility]10-27-2023 09:34-0400 Body .78 kgRene Cortez MD Work Phone: [facility]10-27-2023 09:34-0400 Diastolic blood loahcmgn25 mm[Hg]Rene Cortez MD Work Phone: [facility]10-27-2023 09:34-0400 Heart rate60 /minRene Cortez MD Work Phone: [facility]10-27-2023 09:34-0400 Systolic blood jwbcmgly491 mm[Hg]Rene Cortez MD Work Phone: [facility]04-13-2023 11:31-0400 Body ijwnid037.72 cmRobert Arlene Flower Work Phone: 1(224) 489-3530883-5628VA-Pjhrsrkils-[place] 250 DO Work Phone: 1(843) 681-700604-13-2023 11:31-0400Body mass index (BMI) [Ratio]36.8 kg/x0MteznoSera Flower Work Phone: 1(947) 139-1369066-8115ZA-Hdepphtowj-[place] 250 DO Work Phone: 1(925) 778-370504-13-2023 11:31-0400Body surface area Derived from formula2.22 y1Xatevsfarhad Flower Work Phone: mp989-0995ZV-Mkosynqevt-[place] 250 DO Work Phone: 1(643) 457-433304-13-2023 11:31-0400Body nkuris683.77 kgSera Flower Work Phone: mp404-9961FN-Cnyvqcltnz-[place] 250 DO Work Phone: 1(716) 899-933904-13-2023 11:31-0400Diastolic blood mm[Hg] Sera Flower Work Phone: mp100-2848QM-Xiqemgsluo-[place] 250 DO Work Phone: 1(625) 991-671104-13-2023 11:31-0400Heart rate76 /minSera Flower Work Phone: mp744-5291TL-Sicmtlxlbh-[place] 250 DO Work Phone: 1(322) 377-831704-13-2023 11:31-0400Systolic blood hnszjgai364 mm[Hg] Sera Flower Work Phone: 1(515) 531-9954736-7308EI-Ngsuicggnk-[place] 250 DO Work Phone: 1(356) 315-704504-11-2022 14:04-0400Body ydwpti275.72 cmRobert Arlene Flower Work Phone: mp843-6569DA-Hekpq [facility] 250 DO Work Phone: 1(191) 122-282504-11-2022 14:04-0400Body mass index (BMI) [Ratio] 36.49 kg/u3ZzxtaySera Flower Work Phone: 1(585) 219-1055597-7891GH-Qwjux [facility] 250 DO Work Phone: 1(679) 326-968704-11-2022 14:04-0400Body surface area Derived from formula2.21 l5AjqxgiSera Flower Work Phone: mp096-4389QE-Fptbo [facility] 250 DO Work Phone: 1(527) 283-743204-11-2022 14:04-0400Body .86 kgSera Flower Work Phone: mp390-4743ME-Sdysx [facility] 250 DO Work Phone: 1(225) 551-595104-11-2022 14:04-0400Diastolic blood ywcisqnv66 mm[Hg] Sera Flower Work Phone: mp919-3362CU-Vvvtn [facility] 250 DO Work Phone: 1(146) 956-523004-11-2022 14:04-0400Heart rate70 /minRobfarhad Flower Work Phone: mp670-4418YD-Kovre [facility] 250 DO Work Phone: 1(996) 183-955604-11-2022 14:04-0400Systolic blood ypjxmnod429 mm[Hg] Sera Flower Work Phone: mp104-5989IY-Qjork [facility] 250 DO Work Phone: Encounters Encounter DateEncounter TypeCare ProviderFacilityStart: 88-90-1949yfofyduftg John BAPTISTEFacility:EU PujayStart: 59-96-8100cpqxqeqlujWxmxfpf P COOK Facility:EU PujayStart: 03-16-2025 End: 70-70-7275rgmpgyclxfPCFGEast [place] Regional Hospitaltart: 12-09-2024 End: 82-18-1062hmgmhdppyqUUAXEast [place] Regional Hospitaltart: 12-02-2024 End: 47-45-2442dbopdzuxrnZhqzdbz P COOKFacility:EU PujayStart: 12-02-2024 End: 04-87-2182Zoscpop encounter procedureJohn BAPTISTE [facility] [place] Start: 11-21-2024 End: 84-78-2002Txnylvu encounter procedureKiya Richmond APRN-Electrodiagnostics Work Phone: Start: 11-21-2024 End: 54-74-6929iibqwfhdkaUyzllm Hill MD Work Phone: [facility] Work Phone: Start: 10-31-2024 End: 84-86-9485Lblpfwk encounter procedureSera Flower MD Work Phone: [facility] [place] Work Phone: Start: 10-31-2024 End: 84-12-2681onfrxisghvKzexad Hill MD Work Phone: [facility] Work Phone: Start: 10-24-2024 End: 12-18-4655Oklzeu outpatient visit 25 Elaina Richmond LPN CMA-BOOM CAT OPERATOR Work Phone: uh FirelandsComment on above:BMI 33.0-33.9,adult (Primary Dx); Ischemic cardiomyopathyStart: 10-24-2024 End: 53-56-3920twmzliloyaBRLCI K [facility] AmbulatoryStart: 10-16-2024 End: 61-18-6059Nkppdbcjpb and management of inpatientSera Flower MD Work Phone: [facility] [place] [facility] Work Phone: Start: 09-24-2024 End: 69-75-8540Rhwqnt outpatient visit 25 Alisha Mancuso NP Work Phone: [facility] IMComment on above:Gastroesophageal reflux disease without esophagitis (Primary Dx); Essential hypertension (CMS/HCC); Pure hypercholesterolemia (CMS/HCC); Chronic systolic (congestive) heart failure; Prediabetes; Coronary artery disease involving [place] coronary artery of kanatak heart without angina pectoris (CMS/HCC); Severe persistent asthma, uncomplicated (CMS/HCC); Elevated PSA; BMI 36.0-36.9,adult; Morbid (severe) obesity due to excess calories (CMS/HCC); Medicare annual wellness visit, subsequent; ACP (advance care planning)Start: 09-24-2024 End: 13-11-8563Hizeeox encounter procedureSally Mancuso NP Work Phone: noms HealthcareStart: 09-24-2024 End: 36-74-7217hriypifdzqCKWPJose Juan TAMEZot AvailableStart: 08-26-2024 End: 07-91-2152uefbdzliehAqaylby P COOKFacility:EU SanduskyStart: 08-18-2024 End: 50-63-9658fgwjgaibycBpocqn X OrzechFacility:EU SanduskyStart: 08-15-2024 End: 10-87-6158ncvbxrudcdNcsppio P COOKFacility:EU [place]uskyStart: 08-08-2024 End: 74-70-9306nenbnsqbnvVklmtbc P COOKFacility:FTMCStart: 08-08-2024 End: 46-07-9542Datkmxc encounter procedureGregory P COOK [facility] Start: 07-17-2024 End: 97-13-3101Lhriio flowsheetEmgaston Long MD Work Phone: N[facility] SWS DERMStart: 07-17-2024 End: 34-26-9818Vseswy flowsheetEmgaston Long MD Work Phone: NOMS SWS DERMStart: 07-17-2024 End: 57-24-8953Bbbste outpatient new 45 minutesEmgaston Long MD Work Phone: noms SWS DERMComment on above:Epidermal inclusion cyst (Primary Dx); Erythema intertrigoStart: 07-17-2024 End: 83-16-0650bnpgjksnutRZVIS A PETITTINot AvailableStart: 07-02-2024 End: 66-60-4652Jpmyrj outpatient visit 25 minutesGina R Risaliti ROLLER SETTER Work Phone: noms SWS IMComment on above:Chronic obstructive pulmonary disease, unspecified COPD type (CMS/HCC) (Primary Dx); Bronchiectasis without complication (CMS/HCC); Rash; Skin lesion of back; Sebaceous cystStart: 07-02-2024 End: 41-31-6499xtcydihdzoDSUE R RISALITINot AvailableStart: 06-23-2024 End: 61-16-5765hbvhjwjavqUkaamxh P COOKFacility:EU [place]kyStart: 06-23-2024 End: 07-77-5200Yxnmuma encounter procedureGregcalderon Murtaza BAPTISTE [facility] Start: 05-15-2024 End: 86-22-5644Txoiim outpatient visit 25 minutesRene Cortez MD Work Phone: uh [facility] HealthlandsComment on above:Coronary artery disease involving kanatak coronary artery of kanatak heart without angina pectoris (Pr imary Dx); Essential hypertension; Ischemic cardiomyopathy; Mixed hyperlipidemia; Status post coronary artery stent placement; Former smoker; BMI 36.0-36.9,adult; Class 2 obesityStart: 05-15-2024 End: 25-67-0261sllvkxdikxNAZPWC M [facility] AmbulatoryStart: 05-07-2024 End: 70-66-4574qxsogqyxhfWGXKMTS A NELSONNot AvailableStart: 05-07-2024 End: 84-50-1720Buqjkz outpatient visit 15 minutesGurjit Busby NP Work Phone: noms [facility] UCComment on above:Non-recurrent acute serous otitis media of right ear (Primary Dx)Start: 04-28-2024 End: 70-33-9794lnevkcmtmmXKNathaly COOKFacility:EU uskyStart: 04-28-2024 End: 29-18-8210Wjstigt encounter procedureJENNIFER E ADRIÁN [facility] Start: 04-25-2024 End: 00-97-1666Mfw Drop offJENNIFER E ADRIÁN [facility] Start: 04-25-2024 End: 47-62-8057quejmcghqaIQNathaly HUMPHRIESRYFacility:EU uskyStart: 04-25-2024 End: 48-42-2480Ettlpku encounter procedureJENNIFER E ADRIÁN [facility] Start: 04-16-2024 End: 07-43-6531lbffziztsvNEKenyatta COOKFacility:EU yStart: 04-16-2024 End: 85-36-1921Bixyyzx encounter procedureJEDORENE COOK [facility] Start: 03-26-2024 End: 13-46-7155Cyfjia outpatient visit 25 minutesSera Flower MD Work Phone: noms SWS IMComment on above:Essential hypertension (CMS/HCC) (Primary Dx); Chronic systolic congestive heart failure (CMS/HCC); Coronary artery disease involving kanatak coronary artery of kanatak heart without angina pectoris (CMS/HCC); Chronic obstructive pulmonary disease, unspecified COPD type (CMS/HCC); Pure hypercholesterolemia (CMS/HCC); Prediabetes; Elevated PSA; Benign prostatic hyperplasia without urinary obstruction; Bacterial pneumonia; Sinus drainageStart: 03-26-2024 End: 12-34-9170eccltwlmowOHBTCS L HILLNot AvailableStart: 53-81-7118cdpqbrnhya NUBIA COOKFacility:EU [place]ism[place]tart: 02-27-2024 End: 55-28-9369Cwzkrzkbibuj care manage srvc 7 day dischargeGina R Risaliti ROLLER SETTER Work Phone: noms SWS IMComment on above:Sepsis, due to unspecified organism, unspecified whether acute organ dysfunction present (CMS/HCC) ( Primary Dx); Pneumonia of right middle lobe due to infectious organism; Hyponatremia; Essential hypertension (CMS/HCC); Chronic systolic congestive heart failure (CMS/HCC); Coronary artery disease involving kanatak coronary artery of kanatak heart without angina pectoris (CMS/HCC); Gastroesophageal reflux disease without esophagitis; Benign prostatic hyperplasia without urinary obstructionStart: 02-27-2024 End: 37-31-0391dlwcbndtchDAUL R RISALITINot AvailableStart: 02-18-2024 End: 27-32-3986Kwlqnygkf Result Delfino Britt MD Work Phone: noms External Department UnsolicitedStart: 02-18-2024 End: 19-06-1107Nlfmnxupv Result EncounterSfabiola Britt MD Work Phone: noms External Department UnsolicitedStart: 02-17-2024 End: 98-81-6030Hoxzbdqcr Result EncounterGeneric External Data ProviderNOMS External Department UnsolicitedStart: 02-17-2024 End: 21-91-9548Vyldfikkz Result EncounterGeneric External Data ProviderNOMS External Department UnsolicitedStart: 02-15-2024 End: 99-05-4456Eszmeudhg Result EncounterGeneric External Data ProviderNOMS External Department UnsolicitedStart: 02-15-2024 End: 34-90-4206Vthbhjftr Result EncounterGeneric External Data ProviderNOMS External Department UnsolicitedStart: 01-18-2024 End: 28-31-2819Lpxsxjiic Result EncounterGeneric External Data ProviderNOMS External Department UnsolicitedStart: 01-18-2024 End: 55-36-6245Nxtnleneq Result EncounterGeneric External Data ProviderNOMS External Department UnsolicitedStart: 01-17-2024 End: 36-53-2678Kcttyzbdi Result EncounterGeneric External Data ProviderNOMS External Department UnsolicitedStart: 01-17-2024 End: 74-19-0177Zvtlnbftl Result EncounterGeneric External Data ProviderNOMS External Department UnsolicitedStart: 2024 End: 85-40-0047myokvusdkuLYSUMRK L DIDIONNot AvailableStart: 10-18-2023 End: 88-45-9995Kdhhnp outpatient visit 25 minutesRene Cortez MD Work Phone: uh [facility] on above:Coronary artery disease involving kanatak coronary artery of kanatak heart without angina pectoris (Pr imary Dx); Essential hypertension; Mixed hyperlipidemia; Ischemic cardiomyopathy; Status post coronary artery stent placement; Class 2 obesity with body mass index (BMI) of 35.0 to 35.9 in adult, unspecified obesity type, unspecified whether serious comorbidity present; Former smokerStart: 06-30-2023 End: 55-62-9948Grravo outpatient visit 25 minutesHosea Jose Claudio DO Work Phone: noms [facility] UCComment on above:Acute exacerbation of chronic obstructive pulmonary disease (CMS/HCC) (Primary Dx)Start: 06-14-2023 End: 31-71-2538Gozzkvfwo department patient visitMD Sera Flower Work Phone: [facility]-Emer[facility] Work Phone: Start: 03-23-2023 End: 83-90-7902Tofcvo outpatient visit 25 minutesRene Cortez MD Work Phone: FirelandsComment on above:Coronary artery disease involving kanatak coronary artery of kanatak heart without angina pectoris; Essential hypertension; Mixed hyperlipidemia; Ischemic cardiomyopathy; Status post coronary artery stent placement; Class 2 obesity with body mass index (BMI) of 35.0 to 35.9 in adult, unspecified obesity type, unspecified whether serious comorbidity presentStart: 02-06-2023 OtherSera Jimenez Ching Work Phone: [phone]-[facility]fv[facility] 250 DO Work Phone: Start: 02-05-2023 End: 27-00-4549cdbwvpocctLM Sera Flower Work Phone: [facility] Work Phone: Start: 02-05-2023 End: 21-56-8047Icdauav encounter procedureMD Sera Flower Work Phone: [facility]-Electrodiagnostics Work Phone: Start: 27-00-5449upbqaozblwBv. Sera Frost Perry Facility:[id number]: 60-07-3722DIDVOXdobvn L Ching Work Phone: [phone]-Sdsmr [facility] 600 DO Work Phone: Start: 61-94-8626FjaqxSammvk L Ching Work Phone: [phone]-Iwcfi [facility] 250 DO Work Phone: Start: 07-97-2414Thltw UpdateSera Flower Work Phone: [phone]-Ftlnr [facility] 250 DO Work Phone: Start: 23-34-5726umfnllukmeIl. Sera Flower Facility:[id number]: 56-36-0563ppixdurrjqTs. Sera FlowerFacility:9844Start: 11-14-2022 End: 87-18-1572cvlyltozpkSQNEJRCTW HWANGFacility:[facility] Centertart: 11-14-2022 End: 14-17-4691Mrzkiav encounter procedureDeandra Bender MD Work Phone: OphthalmologyComment on above:Clonic hemifacial spasm, right (Primary Dx)Start: 88-93-1039Yqumlm outpatient visit 25 minutesSera Flower Work Phone: [phone]-Rfjcpkzdqx-[place] 250 DO Work Phone: Start: 64-70-2512lbmbiyrgimGnlxhl Cortez Facility:[id number]: 08-08-2022 End: 42-70-1966cercnrjewyLIZIHFBYP HWANGFacility:[facility] Centertart: 08-08-2022 End: 83-61-7254Zgjhcwg encounter procedureDeandra Bender MD Work Phone: OphthalmologyComment on above:Clonic hemifacial spasm, right (Primary Dx)Start: 08-55-4436Vfnjipjts encounterDeandra Bender MD Work Phone: Internal Medicine LorainComment on above:OrdersStart: 06-21-2022 End: 92-84-4558igplcyvszrENLQFLXWL HWANGFacility:[facility] Centertart: 06-21-2022 End: 78-94-0006Gepvykf encounter procedureDeandra Bender MD Work Phone: OphthalmologyComment on above:Clonic hemifacial spasm, right (Primary Dx); Paralytic strabismus; Jada's syndromeStart: 05-01-2022 End: 68-78-2778qgmtojnrshMNKJT R HOLMESFacility:[facility] Centertart: 05-01-2022 End: 63-48-5035Rrrtqja encounter procedureMau Randle OD Work Phone: OphthalmologyComment on above:Eyelid myokymia (Primary Dx); Dry eye syndrome of both eyes; Hyperopia of both eyes with astigmatism and presbyopiaStart: 07-08-6490Igujgi outpatient visit 25 minutesRobfarhad Flower Work Phone: [phone]-Ydnom [facility] 250 DO Work Phone: Procedures DateProcedureProcedure DetailPerforming ClinicianStart: 97-87-5773TB LHC & COR AngioSera Flower MD Work Phone: Start: 23-53-3622Mvvjm chest X-raySera Flower MD Work Phone: Start: 74-68-5890JgnqjzjrvsYboelef SORENTO Start: 98-42-9043HOZH STAIN EVALUATIONSfaboila Britt MD Work Phone: Start: 86-97-4271Rrmturkfsi [#/volume] in BloodShaiselam Britt MD Work Phone: Start: 75-45-3203GYOMS RESPIRATORY CULTURESfabiola Britt MD Work Phone: Start: 61-94-5963FPUDK CULTURE 2Generic External Data ProviderStart: 47-21-3159IVHWJ CULTURE 1Generic External Data ProviderStart: 70-08-4993UWHQZ CULTURE 2Generic External Data ProviderStart: 00-36-8168ARZAY CULTURE 1Generic External Data ProviderStart: 85-30-9442NT ChestGeneric External Data ProviderStart: 64-79-7786AO PULMONARY FUNCTION TESTGeneric External Data ProviderStart: 94-04-5150Ezpoi 1996 panel - Serum or PlasmaRene Cortez MD Work Phone: Start: 15-15-8486RKDW-CoV-2, Influenza & RSV (PCR)MD Sera Flower Work Phone: Start: 83-65-6950Udsof chest X-rayMD Sera Flower Work Phone: Start: 04-76-4438NanuawshxgaedspdMsyjpsx Provider ScanningStart: 12-89-0455Mkjumgr of placement of stent for coronary artery diseaseStatus post coronary artery stent placementRene Cortez MD Work Phone: Start: 14-59-3891Psmccfqskih [facility] innervated facial nrv Liliam Bender MD Work Phone: Start: 93-09-7015Aefztcfeghj [facility] innervated facial nrv Gia Huffman APRN.CNP Work Phone: Start: 53-27-7982QewqbmjhronOdhm Bruner DO Work Phone: Colonoscope, device (physical object)SU COOK Hernia repairARMANDODORENE ADRIÁN History of placement of stent for coronary artery diseaseStatus post coronary artery stent placementSera Flower Work Phone: History of placement of stent for coronary artery diseaseStatus post coronary artery stent placementRene Cortez MD Work Phone: History of placement of stent for coronary artery diseaseStatus post coronary artery stent placementRene Cortez MD Work Phone: History of placement of stent for coronary artery diseaseStatus post coronary artery stent placementRene Cortez MD Work Phone: History of placement of stent for coronary artery diseaseHistory of heart artery stentSera Flower MD Work Phone: Comment on above:i7Dgvkjvf of placement of stent for coronary artery diseaseHistory of heart artery stentSlila Caraballo DO Percutaneous transluminal coronary angioplastySera Flower Work Phone: Placement of stent in coronary arterySera Flower Work Phone: Repair of shoulderRobfarhad Flower Work Phone: Plan of Treatment DateCare ActivityDetailAuthorStart: 19-09-7244Gptvvfesm for malignant neoplasm of colonNOMS HealthcareStart: 42-38-2997Kxptn panelLipid PanelUnSelect Medical [facility] [place]: 02-98-5292BRqY/Tdap/Td Vaccines (2 - Td or Tdap) DTaP/Tdap/Td Vaccines (2 - Td or Tdap)[facility]: 03-30-2025 End: 76-06-0011Orwduiq encounter /03/2025 9:15 AM EST Office Visit [facility] [address] [place] [address] Sera Flower MD [address] [place] [address] NOMS [facility] IMStart: 03-23-2025 End: 38-20-1869NVS W Auto Differential panel - BloodCBC and differential Lab Routine Essential hypertension (CMS/HCC) Expected: 03/23/2025 (Approximate), Expires: 09/19/2025[facility] Work Phone: Comment on above:Expected: 03/23/2025 (Approximate), Expires: 09/19/2025Start: 03-23-2025 End: 45-16-5984Kirkouzehyoaw metabolic 2000 panel - Serum or PlasmaComprehensive metabolic panel Lab Routine Essential hypertension (CMS/HCC) Expected: 03/23/2025 (Approximate), Expires: 09/19/2025[facility] HealthcareComment on above: Expected: 03/23/2025 (Approximate), Expires: 09/19/2025Start: 03-23-2025 End: 14-02-1856Mvnzfodpas a1c with eagHemoglobin a1c with eag Lab Routine Prediabetes Expected: 03/23/2025 (Approximate), Expires: 09/19/2025[facility] HealthcareComment on above:Expected: 03/23/2025 (Approximate), Expires: 09/19/2025Start: 03-23-2025 End: 24-15-0218Ryvww 1996 panel - Serum or PlasmaLipid panel Lab Routine Pure hypercholesterolemia (CMS/HCC) Expected: 03/23/2025 (Approximate), Expires: 09/19/2025NOMS HealthcareComment on above:Expected: 03/23/2025 (Approximate), Expires: 09/19/2025Start: 03-23-2025 End: 38-51-9625Nbsmvexpccfa/Creatinine panel in random UrineMicroalbumin / creatinine urine ratio Lab Routine Essential hypertension (CMS/HCC) Expected: 03/23/2025 (Approximate), Expires: 09/19/2025NONY HealthcareComment on above: Expected: 03/23/2025 (Approximate), Expires: 09/19/2025Start: 03-23-2025 End: 32-67-4987Copavuctrr complete panel - UrineUrinalysis with microscopic Lab Routine Essential hypertension (CMS/HCC) Expected: 03/23/2025 (Approximate), Expires: 09/19/2025NONY HealthcareComment on above:Expected: 03/23/2025 (Approximate), Expires: 09/19/2025Start: 07-50-5711Bpikzfneo vaccination Influenza Vaccine (Season Ended)[facility]: 01-[facility]2025 End: 43-71-5303Uvuxpwv encounter yapuiqxzi08/12/2025 10:20 AM EDT Office Visit [address] [phone] Rene Cortez MD [address] [place] [address] [address] [place] [address] [facility] Center[facility]: 12-15-2024 End: 16-81-2294Jhagorf encounter aesynqzqh53/21/2025 1:50 PM EDT Office Visit [address] [place] [phone] Rene Cortez MD [address] [facility] 2, [address] [place], [place] [id number] [facility] CenterStart: 11-24-2024 End: 69-88-4258OCX 12 LeadECG 12 Lead ECG Routine Ischemic cardiomyopathy Expected: 11/24/2024 (Approximate), Expires: 10/24/2025[facility] Work Phone: Comment on above:Expected: 11/24/2024 (Approximate), Expires: 10/24/2025Start: 11-24-2024 End: 83-02-3844FG Heart TransthoracicTransthoracic Echo Limited Echocardiography Routine Ischemic cardiomyopathy Expected: 11/24/2024 (Approximate), Expires: 10/24/2026[facility] Service Area Work Phone: Comment on above:Expected: 11/24/2024 (Approximate), Expires: 10/24/2026Start: 10-31-2024 End: 00-55-5481Aofwf metabolic 2000 panel - Serum or PlasmaBasic Metabolic Panel Lab Routine Ischemic cardiomyopathy Expected: 10/31/2024 (Approximate), s: 10/24/2025[facility] Work Phone: Comment on above:Expected: 10/31/2024 (Approximate), Expires: 10/24/2025Start: 74-62-1803XapdzhbyyCleveland Clinic Marymount Hospital CenterStart: 60-48-6370Dahfdefq to cardiologistCleveland Clinic Marymount Hospital CenterStart: 50-45-1867Sioxpdkf admissionCleveland Clinic Marymount Hospital CenterStart: 10-16-2024 [facility] CenterStart: 45-32-0366Fnvjapriniz of Left Heart using Low Osmolar ContrastFluoroscopy of Left Heart using Low Osmolar Contrast [facility] CenterStart: 37-88-6639Qyeezvtwsev of Multiple Coronary Arteries using Low Osmolar ContrastFluoroscopy of Multiple Coronary Arteries using Low Osmolar ContrastCleveland Clinic Marymount Hospital CenterStart: 82-36-2955Ilhxzpgnvdo of Cardiac Sampling and Pressure, Left Heart, Percutaneous ApproachMeasurement of Cardiac Sampling and Pressure, Left Heart, Percutaneous ApproachCleveland Clinic Marymount Hospital CenterStart: 09-24-2024 End: 59-79-2774Jtkvz metabolic 1998 panel - Serum or PlasmaBasic metabolic panel Lab Routine Chronic systolic (congestive) heart failure Expected: 09/24/2024 ( Approximate), Expires: 12/24/2024NONY HealthcareComment on above:Expected: 09/24/2024 (Approximate), Expires: 12/24/2024Start: 09-24-2024 End: 21-72-6816Inxvnon encounter /30/2025 1:30 PM EDT Office Visit [facility] [address] [place] [phone] Sally Mancuso NP [address] [place] [address] [facility] IMStart: 04-25-2025Medicare Annual Wellness (AWV)Medicare Annual Wellness (AWV)[facility] HealthcareStart: 07-17-2024 End: 00-15-0408Rfifris encounter dxtmanwtd85/20/2025 10:35 AM EST Office Visit [facility] DERM [address] [place] [phone] Marybeth Long MD [address] [place] [address] Skin lesion of back; Sebaceous cystNOMS [facility] D[facility] Comment on above:Skin lesion of back; Sebaceous cystStart: 05-15-2024 End: 89-90-5382Iaooiaf encounter cfwtkahmk38/19/2024 9:10 AM EST Office Visit [facility] [address] [facility] [address] [place] [phone] Rene Cortez MD [address] [place] [address] [facility] CenterStart: 04-25-2024 End: 23-79-1348YT Chest 2 ViewsXR chest 2 views Imaging Routine Pneumonia of right middle lobe due to infectious organism Expected: 04/25/2024, Expires: 02/26/2025[facility] Work Phone: Comment on above:Expected: 04/25/2024, Expires: 02/26/2025Start: 03-26-2024 End: 36-35-6255Spsxmzc encounter aufaubljh97/30/2024 1:00 PM EDT Office Visit [facility] [address] [place] [phone] Sera Flower MD [address] [place] [address] [facility] IMStart: 79-38-0016JyjdnmicrovqisudHnfxmkvewlfrtm [facility]: 02-27-2024 End: 98-11-3387Biwlqde encounter xpopnovbd66/02/2024 10:45 AM EDT Office Visit [facility] [address] [place] [address] Sally Mancuso NP [address] [place] [address] [facility] IMStart: 79-47-5017DGFYG-19 Vaccine ( season)COVID-19 Vaccine ( season)[facility] Start: 86-49-2840Xojlwdpgf vaccinationUnSelect Medical [facility] [place]: 10-18-2023 End: 47-91-6242Pqmmuiu encounter tziylspmy88/23/2024 9:30 AM EDT Office Visit [place] [address] [facility] [address] [place] [phone] Rene Cortez MD [address] [place] [address] [facility]: 09-20-2023 End: 59-03-1062Zdfqvoq encounter mkddrizxl67/25/2024 1:00 PM EDT Office Visit [facility] [address] [place] [address] Sera Flower MD [address] [place] [address] [facility] SWS IMStart: 03-23-2023 End: 17-57-3597Naiansb aminotransferase [Enzymatic activity/volume] in Serum or Plasma by With P-5'-PAlanine Aminotransferase Lab Routine Coronary artery disease involving kanatak coronary artery of kanatak heart without angina pectoris Essential hypertension Mixed hyperlipidemia Ischemic cardiomyopathy Status post coronary artery stent placement Class 2 obesity with body mass index (BMI) of 35.0 to35.9 in adult, unspecified obesity type, unspecified whether serious comorbidity present Expected: 03/23/2023 (Approximate), Expires: 03/23/2024 [facility] Work Phone: Comment on above:Expected: 03/23/2023 (Approximate), Expires: 03/23/2024Start: 03-23-2023 End: 68-82-0165Iojghhtsf aminotransferase [Enzymatic activity/volume] in Serum or Plasma by With P-5'-PAspartate Aminotransferase Lab Routine Coronary artery disease involving kanatak coronary artery of kanat[place] heart without angina pectoris Essential hypertension Mixed hyperlipidemia Ischemic cardiomyopathy Status post coronary artery stent placement Class 2 obesity with body mass index (BMI) of 35.0 to 35.9 in adult, unspecified obesity type, unspecified whether serious comorbidity present Expected: 03/23/2023 (Approximate), Expires: 03/23/2024 [facility] Work Phone: Comment on above:Expected: 03/23/2023 (Approximate), Expires: 03/23/2024Start: 03-23-2023 End: 42-77-3805Omxio metabolic 2000 panel - Serum or PlasmaBasic Metabolic Panel Lab Routine Coronary artery disease involving kanatak coronary artery of kanatak heart without angina pectoris Essential hypertension Mixed hyperlipidemia Ischemic cardiomyopathy Status post coronary artery stent placement Class 2 obesity with body mass index (BMI) of 35.0 to 35.9 in adult, unspecified obesity type, unspecified whether serious comorbidity present Expected: 03/23/2023 (Approximate), Expires: 03/23/2024[facility] Work Phone: Comment on above:Expected: 03/23/2023 (Approximate), Expires: 03/23/2024Start: 03-23-2023 End: 31-49-6261IPU panel - Blood by Automated countCBC Lab Routine Coronary artery disease involving kanatak coronary artery of kanat[place] heart without angina pectoris Essential hypertension Mixed hyperlipidemia Ischemic cardiomyopathy Status post coronary artery stent placement Class 2 obesity with body mass index (BMI) of 35.0 to 35.9 in adult, unspecified obesity type, unspecified whether serious comorbidity present Expected: 03/23/2023 (Approximate), Expires: 03/23/2024[facility] Work Phone: Comment on above:Expected: 03/23/2023 (Approximate), Expires: 03/23/2024Start: 03-23-2023 End: 95-82-0853Rcgcl 1996 panel - Serum or PlasmaLipid Panel Lab Routine Coronary artery disease involving kanat[place] coronary artery of kanat[place] heart without angina pectoris Essential hypertension Mixed hyperlipidemia Ischemic cardiomyopathy Status post coronary artery stent placement Class 2 obesity with body mass index (BMI) of 35.0 to 35.9 in adult, unspecified obesity type, unspecified whether serious comorbidity present Expected: 03/23/2023 (Ap proximate), Expires: 03/23/2024[facility] Work Phone: Comment on above:Expected: 03/23/2023 (Approximate), Expires: 03/23/2024Start: 06-78-2779MET, Provider: Rene Cortez, Status: Pen, Time: 9:20 AMFUV, Provider: Rene Cortez, Status: Pen, Time: 9:20 AM AR-Kpovayqybt-Yiipybyi [address] DO Work Phone: Start: 59-78-8795HXVDU-19 Vaccine ( season) COVID-19 Vaccine ( season)[facility] HospitalStart: 77-48-1311Rayhqipal vaccinationSt. Mary's Medical Center, [place] Campustart: 24-63-6275XPB, Provider: Rene Cortez, Status: Pen, Time: 8:30 AMFUV, Provider: Rene Cortez, Status: Pen, Time: 8:30 AM-[facility] [address] DO Work Phone: Start: 03-08-2023Medicare Annual Wellness Visit Medicare Annual Wellness Visit (AWV)[facility]: 06-65-5654AAXZKDF DIRECTIVE DISCUSSIONADVANCE DIRECTIVE DISCUSSIONSt. Mary's Medical Center, [place] Campustart: 91-32-0098PWRACYBBRF ASSESSMENTDEPRESSION ASSESSMENTSt. Mary's Medical Center, [place] Campustart: 74-44-7259Wuirandvp vaccinationINFLUENZA (#1)[facility] [place] Campustart: 74-42-1839DTDMJJQ DIRECTIVE DISCUSSIONADVANCE DIRECTIVE DISCUSSIONSt. Mary's Medical Center, [place] Campustart: 91-91-4055LNHRXZENFX ASSESSMENTDEPRESSION ASSESSMENTSt. Mary's Medical [facility], [place] Campustart: 16-33-0418Aynrtydvg aortic aneurysm screeningAbdominal Aortic Aneurysm (AAA) ScreeningFirelands Regional Medical Center: 2018 PNEUMOCOCCAL: 65+ (1 - PCV)PNEUMOCOCCAL: 65+ (1 - PCV)[facility] [place] Campustart: 50-01-2739Wcwfwo Vaccines (2 of 3)Zoster Vaccines (2 of 3)[facility]: 33-77-7454KVS High Risk: (Elderly (60+) or Population) (1 - Risk 60-74 years 1-dose series)RSV High Risk: (Elderly (60+) or Population) (1 - Risk 60-74 years 1-dose series)[facility]: 27-47-5301FMO patients and/or patients aged 60+ years (1 - 1-dose 60+ series)RSV patients and/or patients aged 60+ years (1 - 1-dose 60+ series)[facility]: 86-54-2970NEBWBMOK VACCINE (1 of 2)SHINGRIX VACCINE (1 of 2)[facility] [place] [facility] 1998 COLOGUARD (FIT-DNA)COLOGUARD (FIT-DNA)[facility] [place] [facility]: 2000 ColonoscopyCOLONOSCOPYSt. [facility] [place] [facility]: 22-54-4140BMSMSQTZFR CANCER SCREENINGCOLORECTAL CANCER SCREENINGSt. [facility] [place]: 08-21-9891SC COLONOGRAPHYCT COLONOGRAPHYCleBethesda North Hospitaltart: 53-05-8277XGCFBYCG SCREEN DIABETES SCREENSt. Mary's Medical [facility], [place]: 78-40-8957PZBQV OCCULT BLOODFECAL OCCULT BLOODSt. [facility]'s [facility] [place]: 32-81-1582OSFOIZVIQKOKWPCHAEBIKPKYNJKlhxackhu Clinic Start: 22-44-7209ZFWBX SCREENLIPID SCREENSt. [facility] [place] [facility]: 59-65-0497Qgpnv microalbumin profileDTAP,TDAP,TD (1 - Tdap)[facility] [place]: 1973 Diabetes mellitus screeningDiabetes ScreeningSamaritan Hospital Start: 40-24-7835IDGYZPXNT C SCREENINGHEPATITIS C SCREENINGJ.W. [facility] Start: 13-22-9726Hzjmdzzaq C screeningHepatitis C ScreeningFirelands Regional Medical Center: 57-05-1712LMMXQ-19 VACCINE (#1)COVID-19 VACCINE (#1)[facility] [place] [facility]: 23-95-0797Krbzrgtlue measurementCreatinine [facility]: 98-71-7558Ajguo panelLipid PanelFirelands Regional Medical Center: 1955Medicare Annual Wellness VisitMedicare Annual Wellness Visit (AWV)[facility]: 1955 Potassium measurementPotassium [facility]: 74-60-1603Iyttyqohu for malignant neoplasm of colonSamaritan HospitalBasic metabolic 1998 panel - Serum or PlasmaBasic metabolic panel Lab Routine Hyponatremia Essential hypertension (CMS/HCC) Ordered: 02/27/2024[facility] HealthcareComment on above:Ordered: 02/27/2024LOOD CULTURE 1BLOOD CULTURE 1 Lab Routine 02/15/2024 4:07 PM EDTNOMS HealthcareBLOOD CULTURE 1BLOOD CULTURE 1 Lab Routine 02/17/2024 10:40 AM EDTNOMS HealthcareBLOOD CULTURE 2BLOOD CULTURE 2 Lab Routine 02/15/2024 4:14 PM EDTNOMS HealthcareBLOOD CULTURE 2BLOOD CULTURE 2 Lab Routine 02/17/2024 11:00 AM EDTNONY HealthcareLOWER RESPIRATORY CULTURELOWER RESPIRATORY CULTURE Lab Routine 02/18/2024 7:25 AM EDTST. [facility] Healthcare Work Phone: End: 02-96-8807Hkt brain brain stem w/o w/contrast materialMRI BRAIN WO/W IVCON Radiology Routine Paralytic strabismus 1 Occurrences starting 06/21/2022 until 07/21/2023[facility] Work Phone: Comment on above:1 Occurrences starting 06/21/2022 until 07/21/2023 End: 55-24-8014Akq orbit face & neck w/o & w/contrast matrlMRI SOFT TISSUE NECK WO/W IVCON Radiology Routine 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 until 07/21/2023[facility] Work Phone: Comment on above:1 Occurrences starting 06/21/2022 until 07/21/2023atient EducationCleveland Clinic Mary[facility]tr Work Phone: Patient referralCleveland Clinic Marymount [facility] Work Phone: PSA, total and freePSA, total and free Lab Routine Benign prostatic hyperplasia without urinary obstruction Ordered: 02/27/2024[facility] Work Phone: Comment on above:Ordered: 02/27/2024[facility] Immunizations Immunization DateImmunizationNotesCare DzuhsykkCyvmxjqs07-17-9864Zxrrfbzc trivalent influenza vaccine, adjuvanted, preservative freeSera Flower Work Phone: [phone]-BxjhqMelissa [place]ille [address] DO Work Phone: [phone] virus vaccine, unspecified formulationRene Cortez MD Work Phone: [facility]y11-01-2019influenza virus vaccine, unspecified formulationSera Jimenez MENA360 Work Phone: [phone]-VpfolUnited Hospital 250 DO Work Phone: [phone]xmb virus vaccine, unspecified formulationAnthony [facility]03-22-2019influenza, injectable, quadrivalent, preservative freeDonna Richmond LPN CMA-BOOM CAT OPERATOR Work Phone: [facility] Work Phone: [phone], seasonal, injectable, preservative freeSera Jimenez Perry Work Phone: [phone]-TupvpMelissa Ville [address] DO Work Phone: [phone]) 264-378703931432-01-4726ksxjigxwwrrw conjugate vaccine, 13 valent Sera Jimenez [place] Work Phone: [phone]-BxmfhMelissa [place] [address] DO Work Phone: [phone] polysaccharide vaccine, 23 valentRmartha Jimenez [place] Work Phone: [phone]-RnhyfMelissa [place] [address] DO Work Phone: [phone] toxoid, reduced diphtheria toxoid, and acellular pertussis vaccine, adsorbedHazard [facility] Work Phone: [phone]-WfzewMelissa Ville [address] DO Work Phone: [phone]zvge, injectable, quadrivalent, preservative Adelsoonna Richmond LPN CMA-BOOM CAT OPERATOR Work Phone: [facility] Work Phone: [phone] vaccine, liveReastern state hospitaldavid Jimenez [place] Work Phone: [phone]-UusvtMelissa Ville [address] DO Work Phone: [phone], seasonal, injectable, preservative freeDonna Richmond LPN CMA-BOOM CAT OPERATOR Work Phone: [facility] Work Phone: [phone], seasonal, injectable, preservative freeDonna Richmond LPN CMA-BOOM CAT OPERATOR Work Phone: [facility] Work Phone: [phone], seasonal, injectable, preservative Adelsojany Richmond LPN CMA-BOOM CAT OPERATOR Work Phone: [facility] Work Phone: [phone] virus vaccine, unspecified formulationKiya Richmond LPN CMA-BOOM CAT OPERATOR Work Phone: [facility] Work Phone: [phone]fefduvw polysaccharide vaccine, 23 valentRobert L Hill Work Phone: [phone]-UdwxyOlivia [facility] 250 DO Work Phone: [phone]bljjp vaccine, unspecified formulationHosea Carmener DO Work Phone: noFulton State HospitalEzsdlcjjur52-99-6963mjmyzmzvl virus vaccine, unspecified formulationKiya Richmond LPN CMA-BOOM CAT OPERATOR Work Phone: [facility] Work Phone: [phone]gt virus vaccine, unspecified formulationKiya Richmond LPN CMA-BOOM CAT OPERATOR Work Phone: [facility] Work Phone: [phone]z virus vaccine, unspecified formulationRene Cortez MD Work Phone: [facility] Work Phone: [phone] virus vaccine, unspecified formulationKiya Richmond LPN CMA-BOOM CAT OPERATOR Work Phone: [facility] Work Phone: [phone], seasonal, injectable, preservative Jimena Cortez MD Work Phone: [facility] Work Phone: [phone](adult) unspecified formulation; Translations: [Td(adult) unspecified formulation]Hosea Snyder DO Work Phone: noFulton State HospitalNriqlayicl11-57-4876nbguqkx toxoid, unspecified formulationKiya Richmond LPN CMA-BOOM CAT OPERATOR Work Phone: [facility] Work Phone: influenza virus vaccine, unspecified formulationSera Flower Work Phone: [phone]-Iifuo [facility] 250 DO Work Phone: Comment on above:Mar Payers DatePayer CategoryPayerPolicy [id number] of Defense ( and others)[id number] of Defense ( and others)[id number]-los [id number] Health Insurance 1.2.840.243376.1.13.693.2.7.3.343061.81098-36-9228ATGKNJW () 1.2.840.328160.1.13.693.2.7.9.699908.389103.86142-53-4079Wqeztlyohd of Defense ( and others)1.2.840.256816.1.13.647.2.7.3.630693.315 2023Medicare (Managed Care)1.2.840.195837.1.13.693.2.7.9.561345.163380.00474-39-8091EUYLONN For Life (TFL)1.2.840.629783.1.13.647.2.7.9.732893.525128.24602-31-9142 Department of Defense ( and others)[id number] 2022 Department of Defense ( and others)[id number] Medicare1.2.840.707928.1.13.159.2.7.3.089536.315 [id number] [id number] 2.16.840.1.725009.3.579.2.99008-61-6858Ynctvqd [id number] 2.16.840.1.290728.3.57[id number] 2.16.840.1.735978.3.57[id number] 2.16.840.1.885055.3.579.2.657047-53-9388Jgojwpu1808730 2.16840.1.699601.3.579.[id number] 2.16.840.1.170809.3.579.2.224793-59-2169Pbzdrfx4526617 2.16.840.1.085006.3.579.2.311364-96-3493Gpegtxo5967512 2.16840.1.224701.3.579.2.771196-17-3665Srednrp2076160 2.16840.1.217468.3.579.2.322794-11-0756Jhzepps1423790 2.16.840.1.686225.3.579.2.444757-84-6907Ewaxjyl3647833 2.16.840.1.582737.3.579.2.652092-43-2905Zpshccc783089475 2.16.840.1.612864.3.579.2.596984-99-5448Dfjhxen398701849 2.16840.1.320451.3.579.2.849230-22-2509Hmamqff39090389 2.16.840.1.519377.3.579.2.41064-67-4699Edcflle82844095 2.16840.1.014716.3.579.2.02907-46-7527Bgchvey29686946 2.160.1.695719.3.579.2.92670-71-7933Dkddqva90962817 2.16840.1.353742.3.579.2.05420-19-2197Bfwojpc12544793 2..1.018241.3.579.2.05000-87-9214Dtjflnx00204545 2.0.1.829515.3.579.2.01868-92-3435Cbwbsek54788550 2.0.1.753202.3.579.2.65796-38-4610Lfjfkvz91241936 2.0.1.321240.3.579.2.41630-47-7023Xkswzul17842867 2..1.609347.3.579.2.09231-49-6112Bxhtvcm47140717 2..1.328892.3.579.2.81766-70-3639Fpcgnnk99582377 2.0.1.360173.3.579.2.58963-75-2666Kwvjzvd23375709 2.0.1.811896.3.579.2.590Thziafp03179296 2.840.1.036175.3.579.2.531 Iiqsivl91741478 2.840.1.871916.3.579.2.341Pnndemq05404655 2.840.1.929035.3.579.2.531 Social History DateTypeDetailFacilityStart: 03-23-2023 End: 00-99-7677Lj alcohol useNo alcohol useNOMS HealthcareComment on above:5 CUPS OF COFFEE DAILY;QUIT IN 1984;Start: 05-01-2022 End: 70-83-3369Ycimlbp smoking status NHISNever smoked tobaccoJ.W. Ruby Memorial Hospital Start: 05-01-2022 End: 02-94-2213Mclargb use and exposureSmokeless tobacco non-userSt. [facility]'s [facility], [place] [facility]: 05-01-2022 End: 81-83-3589Lrjocis intakeEx-drinker (finding)[facility] [place] [facility]: 00-26-4935Wxd Assigned At BirthNot on fileSt. Mary's Medical Center, [place] Campustart: 10-15-2020 End: 85-31-0489Inzzcps smoking status NHISEx-smoker (finding)[facility]: 04-11-6827Bhd [facility]igned At [facility] End: 68-80-4782Wokadwd of tobacco useCurrent smokerUnSumma Health [facility] Campus Work Phone: End: 96-11-5548Hfnqptv of tobacco useCigarette SmokerUnSumma Health Akron Campus Work Phone: Start: 03-23-2023 End: 70-12-3130Rrbqvwo intakeLifetime non-drinker (finding)[facility] Work Phone: Start: 03-23-2023 End: 01-64-0832Qzcfdai use panelNOMS HealthcareStart: 03-13-2023 End: 32-85-7414Ttlkawdr to SARS-CoV-2 (event)Not sureUnSumma Health Akron CampusStart: 13-39-4306Pdoetnx Commentcaffeine: coffee 5-6 cups a dayNOMS HealthcareStart: 98-69-9351Rfwnet identityIdentifies as male gender (finding) NOMS HealthcareStart: 61-40-7719Qoidqpl smoking statusNeverExecutive Urology of [facility] SanduskyStart: 10-18-2024 End: 54-05-9852AikChtt (finding)[facility] Systemtart: 30-94-5969CQIL Follow upSDOH Follow upUniversity Hospitals Ahuja [facility] Center Work Phone: Sexual OrientationExecutive Urology of [facility] Goals DatePatient GoalDesired Activity/State Functional Status NaxzUmaidnrrsnTevcatGiywlkyu26-20-9843Dnmnyfsfgj statusPatient at Baseline [facility] Work Phone: [phone]jqlsg Health Questionnaire 2 item (PHQ-2) [Reported][facility] HospitalFphmquhrwy62-88-3877Rpcvafxexr StatusN/AFFisher-[facility]01-27-2025Functional StatusN/AExecutive Urology of [place] 973752-02-2024Functional StatusN/AExecutive Urology of [place] 973751-20-2024Functional StatusN/AExecutive Urology of [place] 973750-30-2024Patient Health Questionnaire 2 item (PHQ-2) [Reported][facility] Mental Status RwafHftfbuslweLlkwjtVxuivfzv05-90-6358Xvlrcyyxu functionCognitive Status Patient at BaselineUniversity Hospitals Ahuja Medical Center Work Phone: Clinical Notes 05-01-2022 to 03-16-2025 Note Date & JjjhEcytRuvwukaj37-02-1353 [facility] Chief Complaint: Patient is here today for a follow up appointment. Patient did not have Muga scan done. Patient states he gets a lot of indigestion, leg swelling, SOB/ and when he takes his blood pressure. Patient denies dizziness/lightheaded, leg pain HPI: Demarcus Calderon is a 70 y.o. male with significant past medical history [...] one 'kept just throwing meds at me' Update 03/16/2025: Doing well overall; no new symptoms. She still short of breath due to the emphysema. Feels that his Coreg is making it worse. Did not undergo the MUGA scan due to concerns regarding radiation. He is not taking his medications regularly. Cardiology ROS: Review of Systems Cardiovascular: Positive for chest pain, dyspnea on exertion and leg swelling. Respiratory: Positive for shortness of breath. All other systems reviewed and are negative. Past Medical History He has a past medical history of CHF (congestive heart failure) ([facility]), COPD (chronic obstructive pulmonary disease) ([facility]), Coronary artery disease, GERD (gastroesophageal [...] Guaifenesin Medications Current Medications[2] Last Recorded Vitals There were no vitals taken for this visit. Physical Examination: GENERAL: alert and oriented x3, [...] left ventricular ejection fraction of 45% Assessment: Coronary artery disease s/p CAD s/p CI 2009 HFrEF (EF 30 to 35% 10/2024) ischemic cardiomyopathy Severe persistent asthma Noncompliance Plan: Continue optimal medical therapy for coronary artery disease including aspirin, moderate high intensity statin therapy, a beta-ne and a RAAS inhibitor Given heart failure with reduced ejection fraction, continue beta-blockade, RAAS inhibitor/ARNI, SGLT2 inhibitor and spironolactone (more content not included)...[facility]07-15-2025 Note [facility] Cardiology Clinic Note Chief Complaint: Establish [...] medical history of CHF (congestive heart failure) ([facility]), COPD (chronic obstructive pulmonary disease) ([facility]), Coronary artery disease, GERD (gastroesophageal [...] for this visit: Coronary artery disease involving kanatak coronary artery of kanatak heart without angina pectoris (Primary) Comments: S/p PCI to LAD and mid/distal RCA 2009. Recent coronary angiogram September/2024 revealed patent the stent with totally occluded ramus and PLV branch of RCA Orders: - metoprolol succinate XL (Toprol-XL) 25 mg 24 hr tablet; Take 0.5 tablets (12.5 mg) by mouth once daily as directed. Do not crush or chew. (more content not included)...[facility]07-08-2025 Hospital Discharge instructions Patient Education 12/02/2024 08:24:12 [...] urethra. Follow these instructions at home: Take ekqi-ssp-gqagcou and prescription medicines only as told by [...] provider. Document Revised: 11/30/2021 Document Reviewed: 11/30/2021 [employer] Patient Education 2023 [employer]. Follow Up Care 08/26/2024 08:43:50 With:BENNY SHELLEY, John Hauser, URL Address: [address] [place] [address]- When: Unknown Comments:6 mos w/ PSA and PVR [facility] [place] 969266-21-4626 NotePatient Education Urology Benign Prostatic Hyperplasia Benign [...] Follow these instructions at home: ??? Take pyno-knv-dwtzggt and prescription medicines only as told by [...] symptoms do not get (more content not included)...[facility]05-30-2025 History of Present illness Narrative* Kiya Richmond APRN-BOOM CAT OPERATOR - 10/24/2024 10:00 AM EDT Chief Complaint I was told I need [...] September 2024 had a 7-day hospitalization at [facility] due to pneumonia, sepsis. Although I do not have a report, there is documentation that echo showed LVEF of 25% with global hypokinesis. Believe he was treated for acute decompensated heart failure. He was then transferred to [facility] and seen by Dr. Davis. A August 17, 2024 cardiac cath showed a patent LAD and diagonal stenting, ramus occluded, mid/distal RCA patent stent, PLV occluded. LVEF 20%. At time of discharge she was to be placed on Entresto, Aldactone, Farxiga and increased dose carvedilol, Lasix. reports that he was only home for approximately 4 hours and he returned back to [facility] as of breath, he was hospitalized for 4 days treated with a different antibiotics, respiratory treatments and steroids. Patient presents to the office today where he has been home approximately 72 hours. Due to hypotension yesterday with a blood pressure 86/67 they called their PCP and were told not totake any blood pressure medications, he has not had any medications today. He presents to the office today where he feels great now . He reports last night he was able to walk up 1 flight of stairs to his bedroom without any concerns, had not been able to do that in a longtime. His weight is down approximately 16 pounds [...] do sound consistent with acute decompensated heart failure;he was also acutely ill at time of [...] right-lower field reveals decreased breath sounds. Examination ofthe left-lower field reveals decreased breath sounds. Decreased [...] times daily omega-3 fatty acids-fish oil (One-Per-Day [place]-3) 684-1,200 mg capsule Take as directed omeprazole [...] & reported 25% with global hypokinesis at [facility] (no reports). Prior February 2023 TTE with [...] day of office visit Kiya Richmond MSN, WILLIAN-BOOM CAT OPERATOR, PMHNP-[facility] [place], [place] Please excuse any errors in grammar or translation related to this dictation. Voice recognition software was utilized to prepare this document. documented in this [facility] Work Phone: 1(326) 239-679605-30-2025 Instructions* Patient Instructions* NABIL Garcia - 10/24/2024 10:00 AM EDT [...] day of office visit documented in this [facility] Work Phone: 1(255) 847-611705-24-2025 Progress note Author Charito Rodriguez [facility] HospitalNote Date/TimeMay 2024 1:[address] [address] Cardiology Progress Note Signed Patient: Demarcus Calderon MR#: [id number] : 1955 Acct:[id number] Age/Sex: 69 / M Adm Date: 5 Loc: Room: [address] [place] [address] Type: ADM IN Attending Dr: Vincenzo Caraballo [...] Code(s): I25.10 - Atherosclerotic heart disease of kanatak coronary artery without angina pectoris Plan 1. Result of heart cath noted and reviewed with patient 2. Gradually uptitrate guideline directed therapy for heart failure and consideration for outpatient AICD 3. Patient can be discharged home Documented By: Charito Rodriguez MD 10/18/24 1352 Signed By: <Electronically signed by MD Charito Rodriguez> 10/18/24 1353 [facility] Work Phone: 1(676) 109-748305-24-2025 [place] [address] Cardiology Progress Note Signed Patient: Demarcus Calderon MR#: [id number] : 1955 Acct:[id number] Age/Sex: 69 / M Adm Date: 5 Loc: Room: [address] [place] [address] Type: ADM IN Attending Dr: Vincenzo Caraballo [...] Code(s): I25.10 - Atherosclerotic heart disease of kan[place] coronary artery without angina pectoris Plan 1. Result of heart cath noted and reviewed with patient 2. Gradually uptitrate guideline directed therapy for heart failure and consideration for outpatient AICD 3. Patient can be discharged home Documented By: Charito Rodriguez MD 10/18/24 1352 Signed By: 10/18/24 1353 [facility]05-23-2025 Progress note Author Vincenzo Caraballo [facility] HospitalNote Date/TimeMay 2024 3:24pmWol[place] [address] Hospitalist Progress Note Signed Patient: Demarcus Calderon MR#: [id number] : 1955 Acct:[id number] Age/Sex: 69 / M Adm Date: 5 Loc: 4 Room: [address] [place] [address] Type: ADM IN Attending Dr: Vincenzo Caraballo DO Copies to: ~ Date of Service: 10/17/2024 Subjective Subjective Narrative: Seen and evaluated this morning, is present at bedside. Was initially reviewing his hospitalization from [facility] when unfortunately I was called out of the room by an insurance company for a peer to peer. During this [...] spray 10/17/24 09:00 10/17/24 10:26 Fluticasone Propionate [place] 120 [place]/16 Gm Bottle INTRANASAL 10/17/25 08:59 Not Given DAILY KARIN Furosemide 40 mg 10/18/24 08:00 Furosemide 40 Mg/4 Ml Vial IV-PUSH 10/18/25 07:59 DAILY.8A KARIN Loratadine 10 mg 10/17/24 09:00 10/17/24 08:06 Loratadine 10 Mg Tablet PO 10/17/25 08:59 10 mg DAILY KARIN Administration Miscellaneous Information 1 each 10/17/24 10:32 Consult To Pharmacy MISCELLANE 10/17/25 10:31 .PHACONSULT PRN ZZ.Pharmacy Consult Protocol Pantoprazole Sodium 40 mg 10/17/24 09:00 10/17/24 08:06 Pantoprazole 40 Mg Tablet.Dr PO 10/17/25 08:59 40 mg DAILY KARIN [...] 0.4 Mg Cap.Er.24h PO 10/17/25 21:59 QHS [facility] - Hospitalist Assessment/Plan (1) Acute on chronic systolic (congestive) heart failure: Plan: ? Continue diuresis which was started at [facility] ? Lasix 40 m IV push twice daily ? Daily weights ? Strict I's and O's ? Patient was transferred here from [facility] for cardiology valuation ? Echocardiogram at [facility] shows ejection fraction of 25% ? [...] has received 7 days of antibiotics at [facility], - Will defer antibiotics for now Acute hypoxic respiratory failure- likely due to CHF - Continue oxygen as needed, keep Spo2 > 90% Chronic conditions COPD HTN CAD HLD DVT PPx?SCDs Diet order?heart healthy, n.p.o. midnight CODE STATUS?full code Documented By: Vincenzo Caraballo DO 10/17/24 1521 Signed By: <Electronically signed by Vincenzo Caraballo DO> 10/17/24 1524 [facility] Work Phone: 1(489) 463-284205-23-2025 [place] [address] Cardiac Catheterization Note Signed Patient: Demarcus Calderon MR#: [id number] : 1955 Acct:[id number] Age/Sex: 69 / M Adm Date: 5 Loc: Room: [address] [place] [address] Type: ADM IN Attending Dr: Vincenzo Caraballo DO Copies to: MD Vincenzo Sam DO W Scott Sheldon, DO~ Cardiac Catheterization (Left) DATE/PROVIDER 10/17/2024 Keila Davis DO INDICATION 1. Acute decompensated left-ventricular systolic heart failure 2. Recent episode of acute respiratory failure/pneumonia 3. Ischemic cardiomyopathy with prior history of [place], two-vessel revascularizations of LAD/diagonal and distal RCA [...] with a single arterial puncture technique, a5 Burkinan slender sheath was introduced to the right radial artery over guidewirewithout any complications. Next, preformed 5 Burkinan JL 3.5 and JR4 diagnostic catheters were [...] PDA branch; PLV branch is occluded with somj-di-wzqga collaterals PDA-RT -% Stenosis: 0 PLV-RT -% [...] need referral for AICD Documented By: Keila Daivs DO 10/17/24 1550 Signed By: 10/17/24 1558 [facility]05-23-2025 Consult note Author Keila Davis [facility] HospitalNote Date/TimeMay 2024 1:50pm[place] [address] Cardiology Consult Note Signed Patient: Demarcus Calderon MR#: [id number] : 1955 Acct:[id number] Age/Sex: 69 / M Adm Date: 5 Loc: 4 Room: 2W5721-0 Type: ADM IN Attending Dr: Vincenzo Caraballo DO Copies to: MD Vincenzo Sam, DO Keila Davis DO~ Cardiology HPI History of Present Illness Consult Date: 10/17/24 Reason for Consult: Acute HFrEF, ischemic cardiomyopathy, ASHD, history of two-vessel PCI's, pneumonia HPI: Mr. Calderon is a 69 year old male seen in cardiology consultation at request of Dr. Pate at [facility] and hospitalist at [facility] and patient wastransferred for further cardiovascular evaluation and management. He was hospitalized for the past 7 days at [facility] with pneumonia additionally heartfailure, found to have [...] medical/interventional therapies going forward; patient agrees toproceed [facility] Medical History (Updated 10/17/24 @ 13:50 by [...] x10E3/uL Lymph # (Auto) 2.4 (1.00-4.8) x10E3/uL [place] # (Auto) 1.1 H (0.0-0.8) x10E3/uL Eos [...] Code(s): I25.10 - Atherosclerotic heart disease of kan[place] coronary artery without angina pectoris Plan New onset severe ischemic cardiomyopathy, proceed with left heart catheterization Documented By: Keila Davis DO 10/17/24 1343 Signed By: <Electronically signed by Keila Davis DO> 10/17/24 1350 [facility] Work Phone: 1(537) 738-949105-23-2025 [place] [address] Hospitalist Progress Note Signed Patient: Demarcus Calderon MR#: [id number] : 1955 Acct:[id number] Age/Sex: 69 / M Adm Date: 5 Loc: 4 Room: [address] [place] [address] Type: ADM IN Attending Dr: Vincenzo Caraballo DO Copies to: ~ Date of Service: 10/17/2024 Subjective Subjective Narrative: Seen and evaluated this morning, is present at bedside. Was initially reviewing his hospitalization from [facility] when unfortunately I was called out of the room by an insurance company for a peer to peer. During this [...] spray 10/17/24 09:00 10/17/24 10:26 Fluticasone Propionate [place] 120 [place]/16 Gm Bottle INTRANASAL 10/17/25 08:59 Not Given DAILY KARIN Furosemide 40 mg 10/18/24 08:00 Furosemide 40 Mg/4 Ml Vial IV-PUSH 10/18/25 07:59 DAILY.8A KARIN Loratadine 10 mg 10/17/24 09:00 10/17/24 08:06 Loratadine 10 Mg Tablet PO 10/17/25 08:59 10 mg DAILY KARIN Administration Miscellaneous Information 1 each 10/17/24 10:32 Consult To Pharmacy MISCELLANE 10/17/25 10:31 .PHACONSULT PRN ZZ.Pharmacy Consult Protocol Pantoprazole Sodium 40 mg 10/17/24 09:00 10/17/24 08:06 Pantoprazole 40 Mg Tablet.Dr PO 10/17/25 08:59 40 mg DAILY KARIN [...] ? Continue diuresis which was started at [facility] ? Lasix 40 m IV push twice daily ? Daily weights ? Strict I's and O's ? Patient was transferred here from [facility] for cardiology valuation ? Echocardiogram at [facility] shows ejection fraction of 25% ? [...] has received 7 days of antibiotics at [facility], - Will defer antibiotics for now Acute hypoxic respiratory failure- likely due to CHF - Continue oxygen as needed, keep Spo2 > 90% Chronic conditions COPD HTN CAD HLD DVT PPx?SCDs Diet order?heart healthy, n.p.o. midnight CODE STATUS?full code Documented By: Vincenzo Caraballo DO 10/17/24 1521 Signed By: 10/17/24 1524 [facility]05-23-[address] [place] [address] Cardiology Consult Note Signed Patient: Demarcus Calderon MR#: [id number] : 1955 Acct:[id number] Age/Sex: 69 / M Adm Date: 5 Loc: 4 Room: 4M2488-3 Type: ADM IN Attending Dr: Vincenzo Caraballo DO Copies to: MD Vincenzo Sam DO W Scott Sheldon, DO~ Cardiology HPI History of Present Illness Consult Date: 10/17/24 Reason for Consult: Acute HFrEF, ischemic cardiomyopathy, ASHD, history of two-vessel PCI's, pneumonia HPI: Mr. Calderon is a 69 year old male seen in cardiology consultation at request of Dr. Pate at [facility] and hospitalist at [facility] and patient wastransferred for further cardiovascular evaluation and management. He was hospitalized for the past 7 days at [facility] with pneumonia additionally heartfailure, found to have [...] medical/interventional therapies going forward; patient agrees toproceed [facility] Medical History (Updated 10/17/24 @ 13:50 by Keila Davis DO) CHF (congestive heart failure) COVID Sinusitis Emphysema lung Heart attack Acid reflux Elevated cholesterol BPH (benign prostatic hyperplasia) Hypertension COPD (chronic obstructive pulmonary disease) Surgical History (Updated 10/17/24 @ 13:50 by Keila Daivs DO) H/O shoulder surgery History of heart [...] x10E3/uL Lymph # (Auto) 2.4 (1.00-4.8) x10E3/uL [place] # (Auto) 1.1 H (0.0-0.8) x10E3/uL Eos [...] Code(s): I25.10 - Atherosclerotic heart disease of kan[place] coronary artery without angina pectoris Plan New onset severe ischemic cardiomyopathy, proceed with left heart catheterization Documented By: Keila Davis DO 10/17/24 1343 Signed By: 10/17/24 1350 [facility]05-23-2025 History and physical note Author Tootie Richmond [facility] HospitalNote Date/TimeMay 2024 2:47[place] [id number] Hospitalist H&P Signed with Addenda Patient: Demarcus Calderon MR#: [id number] : 1955 Acct:[id number] Age/Sex: 69 / M Adm Date: 5 Loc: 4P Room: 5N2954-5 Type: ADM IN Attending Dr: Ricardo Aguero DO Copies to: DO Tootie Lopes, WILLIAN Flower MD~ ADDENDUM1 Adding on contributor Addendum Documented By: WILLIAN Richmond 10/16/244 Addendum Signed By: <Electronically signed by WILLIAN Richmond> 10/16/242332 <Electronically signed by Ricardo Aguero DO> 10/17/24 0247 HPI DATE OF EXAMINATION: 10/16/24 CHIEF COMPLAINT: heart failure HISTORY OF PRESENT ILLNESS: Mr. Calderon is a 69-year-old male with a PMH of HTN, CHF, COPD, CAD?5 cardiac stents that was transferred here to [facility] for exacerbation of congestive heart failure. He states he has been at [facility] since the for shortness of breath [...] fever or chills. He states that his rental car ferry driver is Dr. Jerez. He reports he quit smoking in the s, denies alcohol or illicit drug use. [facility] chart review?patient was admitted to [facility] on 10/09/2024 for exacerbation of COPD, [...] unless noted in the HPI or below. [facility] Medical History (Updated 10/16/24 @ 23:13 by [...] has received 7 days of antibiotics at [facility], - Will defer antibiotics for now Acute [...] By: <Electronically signed by WILLIAN Richmond> 10/16/242331 [facility] Work Phone: 1(527) 564-457605-23-2025 [place] [address] Hospitalist H&P Signed with Addenda Patient: Demarcus Calderon MR#: [id number] : 1955 Acct:[id number] Age/Sex: 69 / M Adm Date: 5 Loc: Room: [address] [place] [address] Type: ADM IN Attending Dr: Ricardo Aguero [...] cardiac stents that was transferred here to [facility] for exacerbation of congestive heart failure. He states he has been at [facility] since the for shortness of breath [...] fever or chills. He states that his rental car ferry driver is Dr. Jerez. He reports he quit smoking in the , denies alcohol or illicit drug use. [facility] chart review?patient was admitted to [facility] on 10/09/2024 for exacerbation of COPD, [...] unless noted in the HPI or below. [facility] Medical History (Updated 10/16/24 @ 23:13 by [...] has received 7 days of antibiotics at [facility], - Will defer antibiotics for now Acute [...] of days): 3 Documented By: Tootie Richmond, LPN CMA [id number] Signed By: 10/16/24 2332 [facility]05-22-2025 Evaluation note* Diagnosis Onset Date Resolution Status Admit Date Acute hypoxic respiratory failure acuteMay 2024 9:38pmAcute on chronic systolic (congestive) heart failure acuteMay 2024 9:38pmASHD (arteriosclerotic heart disease)acuteMay 2024 9:38pmCommunity acquired pneumoniaacuteMay 2024 9:38pmHistory of heart artery stentacuteMay 2024 9:38pm [facility] Work Phone: 1(384) 211-803105-22-2025 Evaluation note* Diagnosis Onset Date Resolution Status Admit Date Acute hypoxic respiratory failure resolvedMay 2024 9:38pmAcute on chronic systolic (congestive) heart failureresolvedMay 2024 9:38pmCommunity acquired pneumoniaresolvedMay 2024 9:38pmASHD (arteriosclerotic heart disease)inactiveMa2024 9:38pmHistory of heart artery stentinactiveMay 2024 9:38pm [facility] Work Phone: 1(983) 916-774604-30-2025 History of Present illness Narrative* Sally Mancuso, ROHITH - 09/24/2024 1:30 PM EDT Images from the original note were not included. Demarcus Calderon is a 69 y.o. male presents with chief complaint of 6 Month Follow Up of Chronic Conditions, Medicare Annual Wellness Visit Subsequent, and ER Follow-up ([facility] 09/22/2024 for CHF. He was advised [...] He is under the care of Dr. Phoenix, a rental car ferry driver, and has resumed his diuretic regimen. - [...] Referral A referral for a colonoscopy at [facility] has been declined, opting to defer the procedure for a year. Medical History and Vaccinations There is no history of chickenpox, but he has had mumps and measles. The shingles vaccine was administered in 2016. Living Will and Power of Slot Operations Director A living will and power of curriculum supervisor are in place. Resuscitation efforts are desired [...] Shah RN as Registered Nurse (Internal Medicine) Chalino Phoenix MD as Referring Physician (Pulmonary Disease) John Baptiste MD as Referring Physician (Urology) SVS (Optometry) Gurjit Busby NP as Nurse Practitioner [...] Yes Vision Screening: Yes, patient sees regular sales service supervisor/train control electronic technician Cognitive Screening Self Assessment: No overt cognitive deficiency is apparent by direct observation Three Word Registration: Banana, [place], Chair Clock Drawing: Normal Clock - 2 Three Word Recall: 2/3 words correct - 2 Total Score (0-5 Points): 4 Pain Assessment Pain Score: 0 - No pain HISTORIES: PAST MEDICAL HISTORY: Past Medical History: Diagnosis Date Asthma BPH (benign prostatic hyperplasia) CAD (coronary artery disease) ([facility]) COPD (chronic obstructive pulmonary disease) ([facility]) Emphysema, unspecified Hypercholesterolemia ([facility]) Hypertensive heart disease SURGICAL HISTORY: Past Surgical History: Procedure Laterality Date COLONOSCOPY 2019 normal CORONARY ANGIOPLASTY WITH STENT PLACEMENT 2010 PROSTATE SURGERY 08/14/2024 urolift SHOULDER SURGERY Right [...] 50 MCG/ACT nasal spray 2 sprays, Daily Lzfxhxpddtd-Ldhrolddj-Qaknmc (Trelegy Ellipta) 100-62.5-25 MCG/ACT aerosol powder 1 [...] with eag 5. Coronary artery disease involving kanat[place] coronary artery of kan[place] heart without angina pectoris(CMS/HCC) Doing well. Denies [...] Morbid (severe) obesity due to excess calories (CMS/[facility]) As above. 11. Medicare annual wellness visit, subsequent Patient here for annual Medicare Wellness visit with Soledad Mancuso NP. Demographics were updated. Self-assessment was completed. [...] for the above issues. documented in this encounterBates County Memorial HospitalEkdimobxox90-15-7199 NotePatient Education Urology Benign Prostatic Hyperplasia Benign [...] Follow these instructions at home: ??? Take tqxk-xzd-munwqfw and prescription medicines only as told by [...] symptoms do not get (more content not included)...[facility]03-24-2025 NotePatient Education Urology Benign Prostatic Hyperplasia Benign [...] Follow these instructions at home: ??? Take qiwm-mql-dbsfsmc and prescription medicines only as told by [...] symptoms do not get (more content not included)...[facility]03-14-2025 Hospital Discharge instructions Patient Education 08/08/2024 13:12:22 [...] Up Care 06/23/2024 15:57:15 With:John BAPTISTE Address: [address] [place] [address]- Business (1) When: Unknown Comments:Push the fluids to keep the urine clear. Stay on the Flomax for now.Some discharge instructions have been provided. If the bleeding gets severe, or the catheter is clogging from blood clots, you needto go to the ER for irrigation.Will make a one week appt. to remove the catheter. [facility] 03-14-2025 NotePatient Education Urolift ??? Some [...] surgeon, seek help from a hospital emergency room.[facility]03-14-2025 Evaluation + Plan noteExtracted from:Title:EU UroLift 8 Implants- FTAuthor:John BAPTISTE MD PDate:08/08/24 Patient: DEMARCUS CALDERON Age: 69 years Sex: Male : 1955 Associated Diagnoses: None Author: John BAPTISTE MD Procedure Operative Information Details: Date/ Time: 08/08/2024 13:41:00. Pre-Op Dx: Acute urinary retention (GUF77-IP R33.8, Working, Medical), BPH with obstruction/lower urinary tract symptoms (WMG67-KQ N40.1, Working, Medical). Post-Op Dx: Same. Anesthesia Type: Local. Procedure: Cystoscopy with UroLift Prostatic Urethral Lift. Complications: None. Risks/Benefits/Informed Consent: Surgical risks, benefits, details of the procedure have been explained to the patient, Full informed consent has been obtained. Indications: This patient has bladder outlet obstructive symptoms refractory to medications, wishesto no longer take medications, He is strongly desirous to try the Urolift procedure, He does have documented moderate urinary retention. He remains on Flomax and this should continue after the procedure (0.8 mg total daily). Intraoperative Information Prepped: Patient received 1 hour prior to procedure (10 mg diazepam, 5/325 mg of [place]in[place]re), Local Anesthesia (60cc 2% Xylocaine liquid inserted into bladder, 20cc Xylocaine 2% jelly inserted into urethra, Penile clamp applied for 20 min dwell prior to procedure with patient in sitting position). Procedure: A 20F cystoscope was inserted into the bladder, The cystoscopy bridge was replaced with a UroLift delivery device, The first treatment site was the patient's left side approximately 1.5 cmdistal to the bladder neck, The distal tip of the delivery device was then angled laterally approximately 20 degrees at this position to compress the lateral lobe, The trigger was pulled, thereby deploying a needle containing the implant through the prostate, The needle was then retracted, allowingone end of the implant to be delivered to the capsular surface of the prostate, The implant was then tensioned to assure capsular seating and removal of slack monofilament, The device was then angledback toward midline and slowly advanced proximally (typically 3-4mm) until cystoscopic verificationof the monofilament being centered in the delivery bay, The urethral end piece was then affixed to the monofilament thereby tailoring the size of the implant, Excess filament was then severed, The delivery device was then readvanced into the bladder, The delivery device was then replaced with cystos cope and bridge and the implant location and opening effect was confirmed cystoscopically, The sameprocedure was then repeated on the right side, Two additional implants were delivered just proximalto the veru montanum, again one on right [...] , pulling the median lobe from the leftto the right. (ATC's utilized) Upon procedure completion, [...] Then plan follow up in 1-2 weeks. .Addendum by BENNY SHELLEY, John Hauser on August 08, 2024 13:51 EDTThe patient voided about 100 cc without problems, but the urine is bloody. Discussed options. Will place three way [place], push fluids, and may need ER evaluation and CBI if the bleeding gets more persistent/severe. He agrees with the plan. Future Appointments Appointment Date:08/13/2024 12:00:00 PM Scheduled Provider: Location:[facility] Appointment Type:Urology CALL PAT Appointment Date:08/15/2024 08:00:00 AM Scheduled Provider: Location:[facility] KATTY Tejada Appointment Type:URO Nurse Visit [facility] 02-20-2025 History of Present illness Narrative* [...] treatments: Vaseline New patient, referred by Sally Mancuso NP All pertinent medical history, medications, and [...] Erythema intertrigo Pubic, Right Foot - Anterior Clyman moist plaques. Flaring today Discussed that intertrigo is a chronic condition that can be controlled but not cured. Recommend keeping areas as dry as possible to avoid flares. Start Nystatin powder every day. Start HC 2.5% creamevery day prn itching, hold if not itchy. Notify office if worsening despite treatment. nystatin (Mycostatin) [id number] UNIT/GM powder - Pubic Apply to the affected area on groin area, once daily, 30 day supply hydrocortisone 2.5 % cream - Pubic Apply thin layer to affected areas on groin up once or twice daily prn itching. Hold if not itchy. Next Visit: 3-4 weeks if not improving documented in this encounterBates County Memorial [id number] History of Present illness Narrative* Sally Mancuso, ROHITH - 07/02/2024 9:15 AM EST Images from the original note were not included. Demarcus Calderon is a 69 y.o. male presents with chief complaint of ER Follow-up ([facility] 06/29/2024 dx: COPD exacerbation 2ndry [...] Flowsheet Row Patient Outreach from 06/30/2024 in [facility] with Orquidea Shah RN Hospital Information ED, Hospital or Intermediate Facility Discharge? ED Patient has been contacted within 1 week of being seen in the ED Yes Diagnosis COPD exacerbation secondary to viral infection Discharge Date 06/29/24 Discharged To: Home Setting Discharge Hospital -- [[facility]] Engagement Admission Date 06/29/24 Medications Discharge [...] Wrap Up Additional Comments Patient present to [facility] ER with a productive cough and runny [...] unspecified (CMS/HCC) Hypercholesterolemia (CMS/HCC) Hypertensive heart disease ([facility]) SURGICAL HISTORY: Past Surgical History: [...] azithromycin (ZITHROMAX) 250 mg, See admin instructions Yvonnenikoletri Aerosphere 160-9-4.8 MCG/ACT aerosol INHALE 2 PUFFS BY MOUTH 2 TIMES A DAY, RINSE MOUTH AFTER USE carvedilol (COREG) 6.25 mg, Oral, 2 times daily with meals cholecalciferol (VITAMIN D-3) 50 mcg, Daily ezetimibe (ZETIA) 10 mg, Nightly fluticasone (Flonase) 50 MCG/ACT nasal spray 2 sprays, Daily Iebeodyjmuj-Kpcxhjqne-Rqxmbe (Trelegy Ellipta) 100-62.5-25 MCG/ACT aerosol powder 1 [...] a topical cream will be sent to [facility] pharmacy. Follow up if not resolving. [...] referral to Dermatology; Future documented in this encounterBates County Memorial [id number] Hospital Discharge instructions Patient Education 06/23/2024 15:40:46 [...] including vitamins, herbs, eye drops, creams, and cyyj-fwe-shuzkji medicines. Any problems you or family members [...] provider tells you to take them. Taking hlzz-rcb-vhcpnlv medicines, vitamins, herbs, and supplements. Surgery safety [...] provider. Document Revised: 12/09/2021 Document Reviewed: 12/09/2021 [employer] Patient Education 2023 [employer]. Follow Up Care 04/28/2024 12:25:17 With:BENNY SHELLEY, John Hauser, URL Address: [facility] [place] [address]- When: Unknown [facility] [id number] NotePatient Education Urology Prostatic Urethral Lift Prostatic [...] including vitamins, herbs, eye drops, creams, and coei-nsx-hecktow medicines. ??? Any problems you or family [...] tells you to take them. ??? Taking sydl-axw-mrkitdk medicines, vitamins, herbs, and supplements. Surgery safety [...] procedure to relieve symptoms (more content not included)...[facility]12-19-2024 History of Present illness Narrative* Rene Cortez [...] , Rfl: omega-3 fatty acids-fish oil (One-Per-Day [place]-3) 684-1,200 mg capsule, Take as directed, Disp: [...] 11 Assessment/Plan 1. Coronary artery disease involving kan[place] coronary artery of kan[place] heart without angina pectorisFollow Up In Cardiology Follow Up In Cardiology nitroglycerin (Nitrostat) 0.4 mg SL tablet 2. Essential hypertension 3. Ischemic cardiomyopathy 4. Mixed hyperlipidemia 5. Status post coronary artery stent placement 6. Former smoker 7. BMI 36.0-36.9,adult Scribe Attestation By signing my name below, Ana Munoz LPN , Scribe attest that this documentation has been [...] exam, discussion and plan. documented in this encounterSamaritan Hospital Work Phone: 1(405) 873-444612-19-2024 Instructions* Patient Instructions* Ana Cunningham LPN - [...] on exercise. Follow up documented in this encounterSamaritan Hospital Work Phone: 1(392) 736-901712-11-2024 History of Present illness Narrative* Gurjit Busby NP - 05/07/2024 5:15 PM EST Images from the original note were not included. [address] , [address] [facility], [address] P: [phone] F: [phone] HPI Historian of HPI: patient Demarcus Calderon [...] Testing: Pt was admitted to [facility] for pneumonia in January of 2024. [...] with exam. TREATMENT PLAN documented in this [facility]12-11-2024 Instructions* Patient Instructions* Gurjit Busby NP - 05/07/2024 5:15 PM EST Cover for otitis. Finish all doses of antibiotic Push fluids, may continue with OTC Meds for sy mptom relief COPD Is stable, saw pulmonology today documented in this [facility]12-02-2024 Hospital Discharge instructions Patient Education 04/28/2024 [...] (electrical nerve stimulation). ?For women, using a nuclear medical technologist to prevent urine leaks. This [...] right after experiencing incontinence. General instructions Take hjoi-cpi-ouajrjh and prescription medicines only as told by [...] important. Where to find more information [place] of Diabetes and Digestive and Kidney Diseases: www.niddk.nih.gov [employer]: www.urologyhealth.org Contact a health care [...] provider. Document Revised: 12/17/2020 Document Reviewed: 12/17/2020 [employer] Patient Education 2023 [employer]. 04/28/2024 12:02:20 Acute Urinary Retention, Male Acute [...] Follow these instructions at home: Medicines Take bijm-tdh-xgecwcc and prescription medicines only as told by [...] provider. Document Revised: 02/02/2021 Document Reviewed: 02/02/2021 [employer] Patient Education 2023 [employer]. 04/28/2024 12:02:13 Prostate Cancer Screening Prostate Cancer [...] treatment? Where to find more information The [place] [employer]: www.cancer.org [place] [employer]: www.auanet.org Contact a health care [...] provider. Document Revised: 11/07/2021 Document Reviewed: 11/07/2021 [employer] Patient Education 2023 [employer]. Follow Up Care 04/16/2024 11:10:33 With:SU COOK PA-C, URL Address: [address] [place] [address] When: Unknown [facility] [place] 12-02-2024 NotePatient Education Oncology Prostate Cancer Screening Prostate [...] Where to find more information ??? The [place] [employer]: www.cancer.org ??? [employer]: www.auanet.org Contact a health care [...] men. The prostate gland (more content not included)...[facility]11-20-2024 NoteUrology Office/Clinic Note Chief Complaint new patient [...] When Contact Information SU COOK PA-C, URL [address] [place] [address] Additional Instructions: f/u in 2 weeks w/ PSA and PVR Patient Education Acute Urinary Retention, Male Benign Prostatic Hyperplasia Prostatitis Problem List/Past Medical History Ongoing Chronic systolic congestive heart f (more content not included)...[facility] CampusComment on above:Result Comment: Electronically Signed By: SU COOK PA-C\.br\Date and Time Signed: 04/16/2414:04 EST\.br\Electronically Co-Signed By: Tatiana Dyson PA-C\.br\Date and Time Co-Signed: 04/16/2413:22 EST\.br\Electronically Co-Signed By: Tatiana Dyson PA-C\.br\Date and Time Co- Signed: 04/16/2413:24 [id number] Hospital Discharge instructions Patient Education 04/16/2024 11:46:12 [...] Follow these instructions at home: Medicines Take zktu-sqx-bwykrhq and prescription medicines only as told by [...] provider. Document Revised: 02/02/2021 Document Reviewed: 02/02/2021 [employer] Patient Education 2023 [employer]. 04/16/2024 11:46:02 Benign Prostatic Hyperplasia Benign Prostatic [...] urethra. Follow these instructions at home: Take fxee-aoi-qavtzge and prescription medicines only as told by [...] provider. Document Revised: 11/30/2021 Document Reviewed: 11/30/2021 [employer] Patient Education 2023 [employer]. 04/16/2024 11:46:00 Prostatitis Prostatitis Prostatitis is swelling [...] Follow these instructions at home: Medicines Take smgm-njd-egayzyy and prescription medicines only as told by [...] important. Where to find more information [employer] [place] of Diabetes and Digestive and Kidney Diseases: [...] depends on the type of prostatitis. Take miqe-qng-pcrwfco and prescription medicines only as told by [...] provider. Document Revised: 03/29/2023 Document Reviewed: 03/29/2023 [employer] Patient Education 2023 [employer]. Follow Up Care 03/06/2024 09:43:54 With:ADRIÁN DELACRUZ, SU Esquivel, URL Address: [address] [place] [address] When: Unknown Comments:f/u in 2 weeks w/ PSA and PVR [facility] [place] [id number] NotePatient Education Infectious Disease Prostatitis Prostatitis is [...] these instructions at home: Medicines ??? Take pdri-wss-bddpatw and prescription medicines only as told by [...] provider. This is important. (more content not included)...[facility]10-30-2024 History of Present illness Narrative* Sera Flower [...] (benign prostatic hyperplasia) CAD (coronary artery disease) ([facility]/HCC) COPD (chronic obstructive pulmonary disease) ([facility]/HCC) Emphysema, unspecified ([facility]/HCC) Hypercholesterolemia ([facility]/HCC) Hypertensive heart disease ([facility]/HCC) SURGICAL HISTORY: Past Surgical History: Procedure Laterality [...] 50 MCG/ACT nasal spray 2 sprays, Daily Gbcqtkscmoa-Kpjvljlam-Dmjswe (Trelegy Ellipta) 100-62.5-25 MCG/ACT aerosol powder 1 [...] or concerns. 3. Coronary artery disease involving kanatak coronary artery of [place] heart without angina pectoris(CMS/HCC) Doing well. Denies [...] evaluation may be necessary. documented in this [facility]10-02-2024 History of Present illness Narrative* Sally Mancuso NP - 02/27/2024 10:45 AM EDT Images from the original note were not included. Demarcus Calderon is a 69 y.o. male presents with chief complaint of Hospital Follow-up ([facility] dx: sepsis, COPD, pneumonia) HPI: Patient presented to [facility] ER with complaints of shortness of breath, productive cough and wheezing. CXR showed right lower lobe and middle lobe pneumonia. He was prescribed Prednisone and Cefdinir. He reports to be feeling much better. He does have follow-up scheduled with Dr. Phoenix, hvac manager, in April. History of Present Illness The [...] Flowsheet Row Patient Outreach from 02/21/2024 in [facility] with Tootie Jacobson RN Hospital Information Diagnosis Pneumonia, HTN, CHF, Benign prostate hyperplasia without urinary symptoms. Discharged To: Home Setting Discharge Hospital [facility] Engagement Admission Date 02/17/24 Medications Discharge [...] nasal spray 2 sprays, Each Nostril, Daily Xhkcdsfiopy-Rvkqulevc-Dzuxtv (Trelegy Ellipta) 100-62.5-25 MCG/ACT aerosol powder 1 [...] or concerns. 6. Coronary artery disease involving kanatak coronary artery of kanat[place] heart without angina pectoris(CMS/HCC) Doing well. Denies any anginal symptoms. Continue aggressive risk factor modification. Continue current medications. Call if any problems. 7. Gastroesophageal reflux disease without esophagitis Stable. Continue current regimen. 8. Benign prostatic hyperplasia without urinary obstruction Stable. Continue current regimen. - PSA, total and free documented in this encounterBates [facility] [id number] Note Gram Stain Evaluation This specimen is of good quality and is acceptable for routine [facility] HospitalMjcwqoggde03-16-6213 NoteGRAM STAIN EVALUATIONbacterial culture.[facility] [id number] History of Present illness Narrative* Rene Cortez [...] emphasis on low-calorie diet Rene Cortez MD, [facility] Review of Systems All other systems reviewed [...] , Rfl: omega-3 fatty acids-fish oil (One-Per-Day [place]-3) 684-1,200 mg capsule, Take as directed, Disp: [...] 3 Assessment/Plan 1. Coronary artery disease involving kanatak coronary artery of [place] heart without angina pectorisFollow Up In Cardiology [...] my direction and personally dictated by me. Karelyave reviewed the chart and agree that the record accurately reflects my personal performance of the history, physical exam, discussion and plan. [facility] Work Phone: 1(305) 782-846005-23-2024 Instructions* Patient Instructions* Ana Cunningham LPN - [...] Follow up 6 months documented [facility]Sam[facility] Work Phone: 1(216) 163-217802-03-2024 History of Present illness Narrative* Hosea Snyder, [...] day x 3 days documented in this encounterBates County Memorial [id number] History of Present illness Narrative* Rene Cortez [...] , Rfl: omega-3 fatty acids-fish oil (One-Per-Day Brodhead-3) 684-1,200 mg capsule, Take as directed, Disp: [...] Rfl: Assessment/Plan 1. Coronary artery disease involving kan[place] coronary artery of [place] heart without angina pectorisFollow Up In Cardiology [...] Aspartate Aminotransferase Alanine Aminotransferase documented in this encounterSam[facility]itan Hospital Work Phone: 1(399) 238-203510-27-2023 Instructions* Patient Instructions* Millie Hoffmann CMA - [...] time of your visit. documented in this encounterSamaritan Hospital Work Phone: 1(697) 236-225306-20-2023 NoteHNO ID: [id number] Author: Deandra Bender MD Service: ? Author [...] or facial palsy H/o Botox injections in [place]-->didn't help No h/o trauma H/o sinus surgery [...] can I get the FL-41 filter? Any [employer] location, (with an optical shop), throughout [place], Email: [email or web address] [employer] in [place], [place], [facility] in [place], [place], [facility] in [place], [place], [facility] in [place], [place], www.[employer] F/u Botulinum toxin 3 months, Botulinum toxin [...] Deandra Bender MD, November 14, 2022 10:00 AM.[facility]06-20-2023 History of Present illness Narrative* Deandra Bender MD - 11/14/2022 10:00 AM EDT Here for botox Right eye just started twitching Tears as needed. -rofPatient still having twitching right eye and occasionally the left. Refresh tears four times a day. -rof A/P: Right hemifacial spasm x 2 years Patient doesn't remember h/o bells or facial palsy H/o Botox injections in [place]-->didn't help No h/o trauma H/o sinus surgery [...] can I get the FL-41 filter? Any [facility] location, (with an optical shop), throughout [place], Email: [email or web address] [employer] in [place], [place], [facility] in [place], [place], [facility] in [place], [place], [facility] in [place], [place], [phone] www.[employer] F/u Botulinum toxin 3 months, Botulinum toxin [...] 14, 2022 10:00 AM. documented in this encounterJ.W. Ruby [facility]03-14-2023 NoteHNO ID: [id number] Author: Deandra Bender MD Service: ? Author Type: Physician Type: Progress Notes Filed: 08/08/2022 3:09 PM Note Text: Patient still having twitching right eye and occasionally the left. Refresh tears four times a day. -rof A/P: Right hemifacial spasm x 2 years Patient doesn't remember h/o bells or facial palsy H/o Botox injections in [place]-->didn't help No h/o trauma H/o sinus surgery [...] Deandra Bender MD, August 08, 2022 3:05 PM.[facility]03-14-2023 History of Present illness Narrative* Deandra Bender MD - 08/08/2022 3:45 PM EDT Patient still having twitching right eye and occasionally the left. Refresh tears four times a day. -rof A/P: Right hemifacial spasm x 2 years Patient doesn't remember h/o bells or facial palsy H/o Botox injections in [place]-->didn't help No h/o trauma H/o sinus surgery [...] 08, 2022 3:05 PM. documented in this encounterJ.W. Ruby [facility] Hospital03-14-2023 Instructions* Patient Instructions* Deandra Bender MD - [...] Photodocumentation Recheck next visit documented in this encounterJ.W. Ruby Memorial Hospital01-25-2023 Miscellaneous Notes* Telephone Encounter - Orquidea Downs - 06/21/2022 2:03 PM EST Notes and MRI orders faxed to [facility]. * Telephone Encounter - Delores Mccollum - 06/21/2022 12:50 PM EST [facility] called today. : 1955 Allergies: Codeine, Codeine-Guaifenesin, and Guaifenesin (home) [phone] (cell) Reason for call: Sasha F:[phone] Asking for the MRI orders and office notes to be faxed over to [facility]. Patient will be having them done there. Patient last appointment: Visit date not found The patients preferred pharmacy has been captured for this encounter? not asked Delores Mccollum documented in this encounterJ.W. Ruby [facility] Hospital01-25-2023 NoteHNO ID: [id number] Author: Deandra Bender MD Service: ? Author Type: Physician Type: Progress Notes Filed: 06/21/2022 9:08 AM Note Text: Twitching right eye x two years. Both upper and lower lid. Trouble reading because of it. +tearing and burning. Refresh four times a day. -rof A/P: Right hemifacial spasm x 2 years Patient doesn't remember h/o bells or facial palsy H/o Botox injections in [place]-->didn't help No h/o trauma H/o sinus surgery [...] Deandra Bender MD, June 21, 2022 9:05 AM.[facility]01-25-2023 Instructions* Patient Instructions* Deandra Bender MD [...] toxin and get MRI documented in this encounterJ.W. Ruby [facility] Hospital01-25-2023 History of Present illness Narrative* Deandra Bender MD - 06/21/2022 9:00 AM EST Twitching right eye x two years. Both upper and lower lid. Trouble reading because of it. +tearing and burning. Refresh four times a day. -rof A/P: Right hemifacial spasm x 2 years Patient doesn't remember h/o bells or facial palsy H/o Botox injections in [place]-->didn't help No h/o trauma H/o sinus surgery [...] withall of its relevant components. I, Deandra Bneder MD, personally performed the services described in this documentation. All medical record entries made by the scribe were at my direction and in my presence. I have reviewed the chart and discharge instructions (if applicable) and agree that the record reflects my personal performance and is accurate and complete. Electronically Signed: Deandra Bender MD, June 21, 2022 9:05 AM. documented in this encounterJ.W. Ruby [facility] Hospital12-05-2022 NoteHNO ID: [id number] Author: Mau Randle OD Service: ? Author Type: BILINGUAL [employer]ER[employer] TEACHER Type: Progress Notes Filed: 05/01/2022 9:22 AM [...] all of its relevant components. Mau Randle ODMercy Health Allen Hospital12-05-2022 History of Present illness Narrative* Mau Randle, LATASHA - 05/01/2022 8:46 AM EST A 67 [...] agree withall of its relevant components. Mau Randle, LATASHA documented in this encounterJ.W. [place] [address] Discharge Summary Signed Patient: Demarcus Calderon MR#: [id number] : 1955 Acct:[id number] Age/Sex: 69 / M Adm Date: 5 Loc: 4P Room: [address] [place] [address]: Vincenzo Caraballo DO Copies to: MD Vincenzo Sam, DO~ Providers Date of Admission: 10/16/24 Date of Discharge: 10/17/24 Discharging Provider: Vincenzo Caraballo Primary Care Provider: Sera Flower Consults: 10/16/24 23:19 Consult to Cardiology Routine Comment: Consulting Provider: [facility] Reason For Exam: acute on chronic [...] likelydue to ischemia. He had been at [facility] approximately 6 to 7 days for fluid overload and pneumonia. He completed treatment of pneumonia. Upon arrival here he was doing well on 1 L nasal cannula, he was made n.p.o., cardiology was consulted and notified of thisconsult. 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 4. ACTIVITY: You are advised to [...] bottle, follow the instructions on the bottle. [facility] is not responsible for incorrect prescription [...] Continuity of Care Document Health Concerns: A [facility] screening has identified you as FRAIL [...] Strong:Four Ways to Beat the Frailty Risk https://www.[email or web address]/health/tnampmdu-hkb-pocwfcwshu/st ad-uydpja-nfkg- tnqy-du-hmpf-jpa-vmqxgvi-lxcw Exam Physical Exam Vital Signs: Temp Pulse Resp BP Pulse Ox O2 Del Method O2 Flow Rate 97.9 F 75 18 100/65 94 L Room Air 2 10/18/24 12:00 10/18/24 13:00 10/18/24 13:00 10/18/24 13:00 10/18/24 13:00 10/18/24 13:10/18/24 09:00 Narrative: General: Awake alert, no [...] Vincenzo Caraballo DO 10/19/24 1403 Signed By: 10/19/24 140 [facility] HospitalDis[facility] summary Author Vincenzo Caraballo [facility] HospitalNote Date/TimeMay 2024 2:07pmHow[place] [id number] Discharge Summary Signed Patient: Demarcus Calderon MR#: [id number] : 1955 Acct:[id number] Age/Sex: 69 / M Adm Date: 5 Loc: Room: [address] [place] [address]: Vincenzo Caraballo DO Copies to: MD Vincenzo Sam, DO~ Providers Date of Admission: 10/16/24 Date of Discharge: 10/17/24 Discharging Provider: Vincenzo Caraballo Primary Care Provider: Sera Flower Consults: 10/16/24 23:19 Consult to Cardiology Routine Comment: Consulting Provider: [facility] Reason For Exam: acute on chronic [...] likelydue to ischemia. He had been at [facility] approximately 6 to 7 days for fluid overload and pneumonia. He completed treatment of pneumonia. Upon arrival here he was doing well on 1 L nasal cannula, he was made n.p.o., cardiology was consulted and notified of thisconsult. 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 4. ACTIVITY: You are advised to [...] bottle, follow the instructions on the bottle. [facility] is not responsible for incorrect prescription [...] Continuity of Care Document Health Concerns: A [facility] screening has identified you as FRAIL [...] Strong:Four Ways to Beat the Frailty Risk https://www.[email or web address]/health/ohythfnv-uev-hwimtxudab/st aj-jxgawv-vlvm- lxjh-el-vsef-cmu-flhmewb-rara Exam Physical Exam Vital Signs: Temp Pulse Resp BP Pulse Ox O2 Del Method O2 Flow Rate 97.9 F 75 18 100/65 94 L Room Air 2 10/18/24 12:00 10/18/24 13:00 10/18/24 13:00 10/18/24 13:00 10/18/24 13:00 10/18/24 13:10/18/24 09:00 Narrative: General: Awake alert, no [...] no rashes or lesions Documented By: Vincenzo Caraballo, 10/19/24 1403 Signed By: <Electronically signed by Vincenzo Caraballo, DO> 10/19/24 1407 [facility] Work Phone: Evaluation + Plan note Future Appointments Appointment Date:04/25/2024 08:30:00 AM Scheduled Provider: Location:[facility] Appointment Type:URO Nurse Visit Appointment Date:04/28/2024 11:20:00 AM Scheduled Provider:SU COOK PA-C Location:[facility] Appointment Type:URO Office Visit [facility] SuperTruperaluation + Plan note Future Appointments Appointment Date:04/28/2024 11:20:00 AM Scheduled Provider:SU COOK PA-C Location:[facility] Appointment Type:URO Office Visit [facility] evaluation + Plan note Future Appointments Appointment Date:06/23/2024 03:00:00 PM Scheduled Provider:John BAPTISTE MD Location:[facility] Appointment Type:URO Procedure 15 min [facility] Evaluation + Plan note Future Appointments Appointment Date:08/13/2024 12:00:00 PM Scheduled Provider: Location:[facility] Appointment Type:Urology CALL PAT FT Appointment Date:08/14/2024 01:30:00 PM Scheduled Provider: Location:[facility] Appointment Type:Urology FT [facility] Evaluation + Plan note Future Appointments Appointment Date:06/02/2025 09:30:00 AM Scheduled Provider: Location:[facility] [place] Appointment Type:URO Nurse Visit Appointment Date:06/09/2025 09:45:00 AM Scheduled Provider:John BAPTISTE MD Location:[facility] [place] Appointment Type:URO Office Visit Future Scheduled Tests Laboratory* PSA Free & Total 06/04/25 [facility] [place] Evaluation note* Diagnosis Eyelid myokymia- Primary Other facial nerve disorders Dry eye syndrome of both eyes Hyperopia of both eyes with astigmatism and presbyopia [facility] Diagnosis Clonic hemifacial spasm, right- Primary Paralytic strabismus Paralytic strabismus, 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* Diagnosis Clonic hemifacial spasm, right- Primary documented in this encounter [facility]* Diagnosis Clonic hemifacial spasm, right- Primary documented in this encounter [facility] HospitalEvaluchristianacare noteNo assessment information availableUniversity Hospitals A[facility] Work Phone: Evaluation note* Diagnosis Coronary artery disease involving kanat[place] coronary artery of [place] heart without angina pectoris Essential hypertension Unspecified essential hypertension Mixed hyperlipidemia Ischemic cardiomyopathy Other specified forms of chronic ischemic heart disease Status post coronary artery stent placement Postsurgical percutaneous transluminal coronary angioplasty status Class 2 obesity with body mass index (BMI) of 35.0 to 35.9 in adult, unspecified obesity type, unspecified whether serious comorbidity present [facility] Work Phone: Evaluation note* Diagnosis Acute exacerbation of chronic obstructive pulmonary disease (CMS/HCC)- Primary Obstructive chronic bronchitis with exacerbation documented [facility] encounter [facility]* Diagnosis Coronary artery disease involving [place] coronary artery of [place] heart without angina pectoris- Primary Essential hypertension [...] hazards to health documented in this encounter [facility] Work Phone: Evaluation note* Diagnosis Sepsis, due to unspecified organism, unspecified whether acute organ dysfunction present ([facility])- Primary Pneumonia of right middle lobe due to infectious organism Hyponatremia Hyposmolality and/or hyponatremia Essential hypertension ([facility]/HCC) Unspecified essential hypertension Chronic systolic congestive heart failure (CMS/HCC) Coronary artery disease involving [place] coronary artery of [place] heart without angina pectoris ([facility]) Gastroesophageal reflux disease without esophagitis Esophageal reflux Benign prostatic hyperplasia without urinary obstruction [facility] Diagnosis Essential hypertension (CMS/HCC)- Primary Unspecified essential hypertension Chronic systolic congestive heart failure (CMS/HCC) Coronary artery disease involving [place] coronary artery of [place] heart without angina pectoris ([facility]/HCC) Chronic obstructive pulmonary disease, unspecified COPD type (CMS/HCC) Pure hypercholesterolemia ([facility]) Pure hypercholesterolemia Prediabetes Other abnormal glucose Elevated PSA Elevated prostate specific antigen (PSA) Benign prostatic hyperplasia without urinary obstruction Bacterial pneumonia Unspecified bacterial pneumonia Sinus drainage Other diseases of nasal cavity and sinuses documented [facility]* Diagnosis Non-recurrent acute serous otitis media of right ear- Primary [facility]* Diagnosis Coronary artery disease involving [place] coronary artery of [place] heart without angina pectoris- Primary Essential hypertension Unspecified essential hypertension Ischemic cardiomyopathy Other specified forms of chronic ischemic heart disease Mixed hyperlipidemia Status post coronary artery stent placement Postsurgical percutaneous transluminal coronary angioplasty status Former smoker Personal history of tobacco use, presenting hazards to health BMI 36.0-36.9,adult Class 2 obesity documented in this encounter [facility] Work Phone: Evaluation note* Diagnosis Chronic obstructive pulmonary disease, unspecified COPD type ([facility]/HCC)- Primary Bronchiectasis without complication ([facility]) Rash Rash and other nonspecific skin eruption [...] hypertension (CMS/HCC) Unspecified essential hypertension Pure hypercholesterolemia ([facility]) Pure hypercholesterolemia Chronic systolic (congestive) heart failure Prediabetes Other abnormal glucose Coronary artery disease involving [place] coronary artery of [place] heart without angina pectoris ([facility]/HCC) Severe persistent asthma, uncomplicated (CMS/HCC) Elevated PSA Elevated prostate specific antigen (PSA) BMI 36.0-36.9,adult Morbid (severe) obesity due to excess calories (CMS/HCC) Medicare annual wellness visit, subsequent ACP (advance care planning) Other specified counseling documented in this encounter [facility]* Diagnosis BMI 33.0-33.9,adult- Primary Ischemic cardiomyopathy Other specified forms of chronic ischemic heart disease documented in this encounter [facility] Work Phone: Hospital course Narrative No data available for this section [facility] Hospital Discharge instructions Additional Instructions If your symptoms return/worsen or you develop any further concerns or symptoms please see your doctor or return to the emergency department immediately.[facility] Work Phone: Hospital Discharge instructions No data available for this section [facility] Hospital Discharge instructions Additional Instructions DISCHARGE INSTRUCTIONS FOR CARDIAC ULTRASONOGRAPHER PROCEDURE: Heart Cath The following instructions have [...] cold, numb, blue or white, call the rental car ferry driver immediately. 4. ACTIVITY: You are advised to [...] bottle, follow the instructions on the bottle. [facility] is not responsible for incorrect prescription information provided by the patient during their visit. Do not stop your medications without consulting your health care provider. Please take the list with you to your next doctor's appointment.[facility] Work Phone: Progress note No data available for this section [facility] [place] Reason for referral (narrative)* Consultation (Routine) - AuthorizedSpecialtyDiagnoses / ProceduresReferred By ContactReferred To ContactCardiology Diagnoses Coronary artery disease involving kanatak coronary artery of kanatak heart without angina pectoris Essential hypertension Mixed hyperlipidemia Ischemic cardiomyopathy Status post coronary artery stent placement Class 2 obesity with body mass index (BMI) of 35.0 to 35.9 in adult, unspecified obesity type, unspecified whether serious comorbidity present Procedures Follow Up In Cardiology Rene Cortez MD [address] [address], [address] [address] Rene Cortez MD [address] [address], [address] [address] Referral IDStatusReasonStart DateExpiration DateVisits RequestedVisits [id number]/27/202310/26/202411 [facility] Work Phone: Reason for referral (narrative)* Consultation (Routine) - AuthorizedSpecialtyDiagnoses / ProceduresReferred By Contact Referred To ContactCardiology Diagnoses Coronary artery disease involving kanatak coronary artery of kanatak heart without angina pectoris Procedures Follow Up In Cardiology Rene Cortez MD [address] [place] [address], [address] [address] Rene Cortez MD [address] [place] [address], [address] [address] Referral IDStatusReasonHollywood DateExpiration DateVisits RequestedVisits [id number]/23/20245/ [facility] Work Phone: Chief Complaint * [...] infarction with no ischemia. EF in the [id number]. He remains compensated as for ischemic cardiomyopathy. [...] on low-calorie diet * Rene Cortez MD, [facility] Family History Unknown Family Member Name Dates Details Family history of abdominal aortic aneurysm (AAA): Father(V17.49, Z82.49) Status:ActiveFamily history of arteriosclerotic cardiovascular disease: Father (V17.49, Z82.49) Status:Active Unknown Family Member Name Dates Details Family history of abdominal aortic aneurysm (AAA): Father(V17.49, Z82.49) Status:ActiveFamily history of arteriosclerotic cardiovascular disease: Father (V17.49, Z82.49) Status:Active Unknown Family Member Name Dates Details Family history of abdominal aortic aneurysm (AAA): Father(V17.49, Z82.49) Status:ActiveFamily history of arteriosclerotic cardiovascular disease: Father (V17.49, Z82.49) Status:Active Unknown Family Member Name Dates Details Family history of abdominal aortic aneurysm (AAA): Father(V17.49, Z82.49) Status:ActiveFamily history of arteriosclerotic cardiovascular disease: Father (V17.49, Z82.49) Status:Active Unknown Family Member Name Dates Details Family history of abdominal aortic aneurysm (AAA): Father(V17.49, Z82.49) Status:ActiveFamily history of arteriosclerotic cardiovascular disease: Father (V17.49, Z82.49) Status:Active Relationship Condition Age at Onset Recorded Date/T lemuel Not Specified Alzheimer's disease Unknown fatherAbdominal aortic aneurysm (AAA)Unknownnatural sonHeart diseaseUnknown brotherKidney disorderUnknown Unknown Family Member Name Dates Details Family history of abdominal aortic aneurysm (AAA): Father(V17.49, Z82.49) Status:ActiveFamily history of arteriosclerotic cardiovascular disease: Father (V17.49, Z82.49) Status:Active Relationship Condition Age at Onset Recorded Date/T lemuel mother Alzheimer's disease Unknown Diabetes mellitusUnknownfatherAbdominal aortic aneurysm (AAA)UnknownsonHeart diseaseUnknownbrotherKidney disorderUnknownfatherDeceasedUnknownmotherDeceased UnknownsonCoronary artery diseaseUnknownDeceasedUnknown Reason for Referral SpecialtyDiagnoses / ProceduresReferred By ContactReferred To Contact IMAGING Diagnoses Jada's syndrome Procedures MRI SOFT TISSUE NECK WO/W IVCON MRI ORBIT FACE & NECK W/O & W/CONTRAST MATRL Deandra Bender MD [address] [place] [id number] Mr Imaging Referral IDStatusReasonStart DateExpiration DateVisits RequestedVisits [id number] Review Auto-Generated Referral /[id number] / ProceduresReferred By ContactReferred To [facility] IM[facility]ING Diagnoses Paralytic strabismus Procedures MRI BRAIN WO/W IVCON MRI BRAIN BRAIN STEM W/O W/CONTRAST MATERIAL Deandra Bender MD [address] [place] [id number] Mr Imaging Referral IDStatusReasonStart DateExpiration DateVisits RequestedVisits [id number] Review Auto-Generated Referral Summary Purpose Advance Directives Advance Directive Response Recorded Date/ Time Advance Directives No September 19 2:33pm Advance Directive Response Recorded Date/ Time Advance Directives No September 19 018 1:33pm Chief Complaint and Reason for Visit Chief Complaint I10 I25.5 Chief Complaint cough sent by Chief Complaint Admit Date Congestive Heart Failure October 16, 2024 9:38pm Reason for Visit Admit Date Acute hypoxic respiratory failure October 162024 9:38pm Acute on chronic systolic (congestive) h eart failure October 16, 2024 9:38pm ASHD (arteriosclerotic heart disease) Ma y 2024 9:38pm Community acquired pneumonia October 16, 025 9:38pm History of heart artery stent October 16, 2024 9:38pm Chief Complaint Admit Date Congestive Heart Failure October 16, 2024 9:38pm I25.5 October 31, 2024 7:58a m Reason for Visit Admit Date Acute hypoxic respiratory failure October 162024 9:38pm Acute on chronic systolic (congestive) h eart failure October 16, 2024 9:38pm Community acquired pneumonia October 16, 2 025 9:38pm ASHD (arteriosclerotic heart disease) Ma y 2024 9:38pm History of heart artery [...] or prosecute any alcohol or drug abuse patient.[facility] HospitalIn the event this information is protected by the Federal Confidentiality of Alcohol and Drug Abuse Patient Records regulations: The Federal rules restrict any use of the information to criminally investigate or prosecute any alcohol or drug abuse patient.[facility] HospitalIn the event this information is protected by the Federal Confidentiality of Alcohol and Drug Abuse Patient Records regulations: The Federal rules restrict any use of the information to criminally investigate or prosecute any alcohol or drug abuse patient.[facility] HospitalIn the event this information is protected by the Federal Confidentiality of Alcohol and Drug Abuse Patient Records regulations: The Federal rules restrict any use of the information to criminally investigate or prosecute any alcohol or drug abuse patient.[facility] HospitalIn the event this information is protected by the Federal Confidentiality of Alcohol and Drug Abuse Patient Records regulations: The Federal rules restrict any use of the information to criminally investigate or prosecute any alcohol or drug abuse patient.[facility] Reason for Visit (unrecogniz ed section and content) ReasonCommentsWatery Eyes Right EyeBlurred Vision Right EyeRight eye blurry when reading or computerReasonCommentsHemifacial spasm/MyokymiaReasonCommentsOrders ReasonCommentsHemifacial spasm/MyokymiaSpecialtyDiagnoses / ProceduresReferred By ContactReferred To ContactOphthalmology / OPHTHALMOLOGY Diagnoses Hemifacial spasm F/u Botulinum toxin 3 months, Botulinum toxin is being used for medical indication and treatment of hemifacial spasm , up to 100 units Procedures BOTOX EI [id number] [place] [address] [place] [address] Deandra Bender MD [address] [place] [address] Referral IDStatusReasonStart DateExpiration DateVisits RequestedVisits [id number]/20/202312/[id number]-ka5 monthsReasonCommentsFollow-di2oLwzzcnlioGnblhqffm / ProceduresReferred By ContactReferred To ContactCardiology Diagnoses Coronary artery disease involving kanatak coronary artery of kanatak heart without angina pectoris Essential hypertension Mixed hyperlipidemia Ischemic cardiomyopathy Status post coronary artery stent placement Class 2 obesity with body mass index (BMI) of 35.0 to 35.9 in adult, unspecified obesity type, unspecified whether serious comorbidity present Procedures Follow Up In Cardiology Rene Cortez MD [address] [place] [address], [address] [address] Rene Cortez MD [address] [place] [address] 2, [address] [address] Referral IDStatusReAndalusia Health DateExpiration DateVisits RequestedVisits [id number]/27/202310/435619ZtybgyVrtooymdIhodmhil [facility]: sepsis, COPD, pneumoniaReasonComments6 Month Follow-upLab drawn 02/27/2024.CoughProductive cough continues with yellow sputum. Occasional shortness of breath. CXR ordered on 02/26to repeat in 8 weeks ReasonCommentsEaracheReasonCommentsFollow-up6 monthSpecialtyDiagnoses / ProceduresReferred By ContactReferred To ContactCardiology Diagnoses Coronary artery disease involving kanatak coronary artery of kanatak heart without angina pectoris Procedures Follow Up In Cardiology Rene Cortez MD [address] [place] [address] 2, [address] [address] Phone: tel: fax: Rene Cortez MD [address] [place] [address] 2, [address] [address] Phone: tel: fax: Referral IDStacarlsbad medical centerAugusta Health DateExpiration DateVisits RequestedVisits [id number]/23/20245/[id number] [facility] dx: COPD exacerbation 2ndry viral infection. He was prescribed Z-Santos, Prednisone and Mucinex. He does continue to have mucus. He is not using Mucinex, reports it does not work.RashRight axillaMassMid back for 2-3 weeks, painful, hardReasonCommentsSuspicious Skin LesionRashSpecialtyDiagnoses / ProceduresReferred By ContactReferred To ContactDermatology Diagnoses Skin lesion of back Sebaceous cyst Procedures CT OFFICE/OUTPATIENT [facility] MDM 60 MINUTES Sally Mancuso NP [address] [place] [address] Phone: tel: fax: Marybeth Long MD [address] [place] [address] Phone: tel: fax: Referral IDStatusAugusta Health DateExpiration DateVisits RequestedVisits [id number] Consult and Treat /[id number] Month Follow Up of Chronic ConditionsMedicare Annual Wellness Visit SubsequentER [facility] for CHF. He was advised to resume Lasix, which was discontinued in the past due to low sodium levels.ReasonCommentsFollow-[facility] [place] low ef (unrecognized sect ion and content) No Status Records FoundNo Status Records FoundNo Status Records FoundNo Status Records FoundNo Status Records FoundNo Status Records FoundNo Status Records FoundNo Status Records FoundNo Status Records FoundNo Status Records FoundNo Status Records Found INFORMATION SOURCE (unrecogn ized section and content) DATE CREATED AUTHOR 07/16/2022 [facility] [employer] DATE CREATED AUTHOR AUTHOR'S ORGANIZ ATION 09/09/2022 [employer] DATE CREATED AUTHOR AUTHOR'S ORGANIZ ATION 11/14/2022 [facility] DATE CREATED AUTHOR AUTHOR'S ORGANIZ ATION 02/12/2023 [facility] DATE CREATED AUTHOR AUTHOR'S ORGANIZ ATION 02/28/2023 [facility] DATE CREATED AUTHOR AUTHOR'S ORGANIZ ATION 09/29/2024 [facility] DATE CREATED AUTHOR AUTHOR'S ORGANIZ ATION 11/26/2024 [facility] DATE CREATED AUTHOR AUTHOR'S ORGANIZ ATION 12/15/2024 [facility] DATE CREATED AUTHOR AUTHOR'S ORGANIZ ATION 12/20/2024 [facility] DATE CREATED AUTHOR AUTHOR'S ORGANIZ ATION 02/05/2025 [facility] DATE CREATED AUTHOR AUTHOR'S ORGANIZ ATION 03/16/2025 [facility] Care Teams (unrecognized sec tion and content) Team Status: Active Member Role Status Dates Sear Flower MD Primary Care Provider Active Team Status: Inactive Member Role Status Dates Sera Flower MD Primary Care Provider, Other Provider Active Rene Cortez MDAstuart ProviderActiveTeam MemberRelationshipSpecialtyStart DateEnd Date Sera Flower MD [address] [place] [address] PCP - General02/16/21 Team Status: Inactive Member Role Status Dates Sera Flower MD Primary Care Provider Active St art: June 14, 2023 End: June 14Mac De Santiago ProviderActiveStart: June 14, 2023 End: June 14, 2023Team MemberRelationshipSpecialtyStart DateEnd Date Sera Flower MD [address] [place] [address] PCP - Human05/28/22 Sera Flower MD [address] [place] [address] PCP - GeneralInternal Medicine10/03/22Team MemberRelationshipSpecialtyStart Date End Date Sera Flower MD [address] [place] [address] PCP - General02/16/21Team MemberRelationshipSpecialtyStart DateEnd Sera Flower MD [address] [place] [address] PCP - Humana1 Sera Flower MD [address] [place] [address] PCP - GeneralInternal Medicine10/03/22 Tootie Jacobson RN [address] [place] [address] Registered NurseInternal Medicine08/10/23 Rene Cortez MD [address] [place] [address] [address] [place] [address] Referring PhysicianCardiology09/05/23Team MemberRelationshipSpecialtyStart Date End Sera Flower MD [address] [place] [address] PCP - Humana1 Sera Flower MD [address] [place] [address] PCP - GeneralInternal Medicine10/03/22 Tootie Jacobson RN [address] [place] [address] Registered NurseInternal Medicine08/09/2410 Rene Cortez MD [address] [place] [address] [address] [place] [address] Referring PhysicianCardiology09/05/23Team MemberRelationshipSpecialtyStart Date End Date Sera Flower MD [address] [place] [address] PCP - Humana1 Sera Flower MD [address] [place] [address] PCP - GeneralInternal Medicine10/03/22 Rene Cortez MD [address] [facility] [address] [place] [address] Referring PhysicianCardiology09/05/23 Orquidea Carreon, DOUG Registered NurseFamily Ldewayws07/1/24Te MemberRelationshipSpecialtyStart Date End Date Sera Flower MD [address] [place] [address] PCP - Human05/28/22 Sera Flower MD [address] [place] [address] PCP - GeneralInternal Medicine10/03/22 Tootie Jacobson, DOUG [address] [place] [address] Registered NurseInternal Medicine08/10/23 Rene Cortez MD [address] [facility] [address] [place] [address] Referring PhysicianCardiology09/05/23Team MemberRelationshipSpecialtyStart Date End Date Sera Flower MD [address] [place] [address] PCP - Humana1 Sera Flower MD [address] [place] [address] PCP - GeneralInternal Medicine10/03/22 Tootie Jacobson RN [address] [place] [address] Registered NurseInternal Medicine08/10/23 Rene Cortez MD [address] [place] [address] [address] [place] [address] Referring PhysicianCardiology09/05/23Team MemberRelationshipSpecialtyStart Date End Date Sera Flower MD [address] [place] [address] PCP - Humana1 Sera Flower MD [address] [place] [address] PCP - GeneralInternal Medicine10/03/22 Tootie Jacobson RN [address] [place] [address] Registered NurseInternal Medicine08/10/23 Rene Cortez MD [address] [place] [address] [address] [place] [address] Referring PhysicianCardiology09/05/23Team MemberRelationshipSpecialtyStart Date End Date Sera Flower MD [address] [place] [id number] PCP - General9Team MemberRelationshipSpecialtyStart [facility] Sera Flower MD [address] [place] [address] PCP - Human05/28/22 Sera Flower MD [address] [place] [address] PCP - GeneralInternal Medicine10/03/22 Rene Cortez MD [address] [facility] [address] [place] [address] Referring PhysicianCardiology09/05/23 Orquidea Shah RN Registered NurseInternal Medicine06/03/24Team MemberRelationshipSpecialtyStart DateUniversity [facility] Center Sera Flower MD [address] [place] [address] PCP - Human05/28/22 Sera Flower MD [address] [place] [address] PCP - GeneralInternal Medicine10/03/22 Rene Cortez MD [address] [facility] [address] [place] [address] Referring PhysicianCardiology09/05/23 Orquidea Shah RN Registered NurseInternal Medicine06/03/24Team MemberRelationshipSpecialtyStart [facility] Sera Flower MD [address] [place] [address] PCP - Humana1 Sera Flower MD [address] [place] [address] PCP - GeneralInternal Medicine10/03/22 Rene Cortez MD [address] [facility] [address] [place] [address] Referring PhysicianCardiology09/05/23 [facility] Center[facility]qu[facility] RN Registered NurseInternal Medicine06/03/24Team MemberRelationshipSpecialtyStart DateEnd Date Sera Flower MD [address] [place] [address] PCP - Humana1 Sera Flower MD [address] [place] [address] PCP - GeneralInternal Medicine10/03/22 Rene Cortez MD [facility] [facility] [address] [place] [address] Referring PhysicianCardiology09/05/23 Oruqidea Shah, DOUG Registered NurseInternal Medicine06/03/24 Chalino Phoenix MD [address] [facility] [address] [place] [address] Referring PhysicianPulmonary Disease09/24/24 John Baptiste MD [address] [facility] [place] [address] Referring PhysicianUrology09/24/24 Gurjit Busby NP [address] [place] [address] Nurse PractitionerFamily Medicine09/24/24 [facility]09/24/24 Team Status: Inactive Member Role Status Dates Sera Flower MD Primary Care Provider Active St art: October 16, 2024 End: October 18, 2024Michaearlene Aguero DOAdmit ProviderActiveStart: October 16, 2024 End: October 18, 2024Orquidea Sapp RNOther ProviderActiveStart: October 16, 2024 End: October 18, 2024W Sameer Davis DOOther ProviderActiveStart: October 16, 2024 End: October 18, 2024Rene Cortez MDOther ProviderActiveStart: October 16, 2024 End: October 18, 2024Tank Daley MDOther ProviderActiveStart: October 16, 2024 End: October 18, 2024Moaudra Rodriguez MDOther ProviderActiveStart: October 16, 2024 End: October 18lkaia Mendez MDOther ProviderActiveStart: October 16, 2024 End: October 18, 2024Benito Garcia ProviderActiveStart: October 16, 2024 End: October 18, 2024Gilberto Tolentino ProviderActiveStart: October 16, 2024 End: October 18, 2024Modb Dalton MDOther ProviderActiveStart: October 16, 2024 End: October 18, 2024Talaw Huffman MDOther ProviderActiveStart: October 16, 2024 End: October 18DIEGO Wiley-BCOther ProviderActiveStart: October 16, 2024 End: October 18, 2024Vik Brooksending ProviderActiveStart: October 16, 2024 End: October 18, 2024Team MemberRelationshipSpecialtyStart DateEnd Date Torres Pate MD [address] [facility] [place] [address] PCP - GeneralFamily Medicine10/24/24 Team Status: Active Member Role Status Dates Torres Pate MD Primary Care Provider Active Team Status: Inactive Member Role Status Dates Kiya Richmond APRN Attending Provider Active S tart: October 31, 2024 End: October 31, 2024DoYuval Garibay Care ProviderActiveStart: October 31, 2024 End: October 31, 2024 Team Status: Inactive Member Role Status Dates Kiya Richmond APRN Attending Provider Active S tart: November 21, 2024 End: November 21, 2024DoYuval Garibay Care ProviderActiveStart: November 21, 2024 End: November 21, 2024Team MemberRelationshipSpecialtyStart DateEnd Date Sera Flower MD [address] [facility] [address] [place] [address] PCP - Human/ Sera Flower MD [address] [facility] [address] [place] [address] PCP - GeneralInternal Medicine Unallocated, Nombar Landis MD [address] [facility] [place] [place] [address] PCP - GeneralFamily Medicine Torres Pate MD [address] [facility] [place] [address] PCP - GeneralFamily Medicine10/17/24 Tootie Jacobson, DOUG [address] [place] [address] Registered NurseInternal Medicine08/09/2410/06/20 Rene Cortez MD [address] [place] [address] Referring PhysicianCardiology09/05/23 Orquidea Carreon RN [address] [place] [address] Registered NurseFamily Tnujysng00/1/241 Orquidea Shah RN [address] [place] [address] Registered NurseInternal Medicine Chalino Phoenix DO [address] [place] [address] Referring PhysicianPulmonary Disease09/24/24 John Baptiste MD [address] [facility] [place] [address] Referring PhysicianUrology09/24/24 Gurjit Busby NP [address] [place] [address] Nurse PractitionerFamily Medicine09/24/24 [facility] Optometry09/24/24 Goals (unrecognized section and content) Goals may [...] BE BASED ON THE PRIMARY CLINICAL RECORDS. [facility] [employer] [facility]. provides no warranty or guarantee of the accuracy or completeness of information in this document.
[2025-04-15 09:41] LABS: Anion Gap 8.5; Blood Urea Nitrogen 12.0 mg/dL (7.0-18.0); Calcium 8.9 mg/dL (8.5-10.1); Carbon Dioxide 28.4 mmol/L (21.0-32.0); Chloride 100 mmol/L (98-107); Estimated GFR (African America >60 (>=60 mL/min/1.73m^2); Estimated GFR (Non-African Ame >60 (>=60 mL/min/1.73m^2); Glucose 121 mg/dL (74-106); NT Pro B Type Natriuretic Pept 1109.0 pg/mL (<=900.0); Potassium 3.9 mmol/L (3.5-5.1); Sodium 133 mmol/L (136-145)
[2025-04-15 10:17] LABS: SARS-CoV-2 Ag NEGATIVE (NEGATIVE)
[2025-04-15 10:41] LABS: Glucose Urine UA NEGATIVE (NEGATIVE)
--- NOTE | 2025-04-15 11:23 | CT_ITS ---
The [address] [address] Patient Name: DEMARCUS CALDERON MRN: [id number] date: 1955 Sex: M Assigned Patient Location: ER Current Patient Location: ER Accession/Order Number: [id number] Exam Date: 04/15/2025 11:35 Report Date: 04/15/2025 12:07 At the request of: INDRA BERNARD MD Procedure: CT angio chest CT PULMONARY ANGIOGRAM WITH CONTRAST CLINICAL HISTORY: Short of breath and chest pain. Elevated D-dimer COMPARISON: 10/11/2024 TECHNIQUE: Spiral images were obtained through the chest following intravenous administration of 100 mL of Omnipaque 350. Images were reviewed using both narrow and wide window settings. Sagittal, coronal and 3 D volume-rendered reconstructions were performed and reviewed. This CT exam was performed using one or more following dose reduction techniques: Automated exposure control, adjustment of the mA and/or kV according to patient size, or use of iterative reconstruction technique. FINDINGS: The heart is borderline prominent. There is no pericardial effusion. Coronary artery disease is seen. No aortic aneurysm is identified. Contrast bolus is suboptimal to assess for dissection. There is mild plaque at the aortic arch. There is adequate opacification of the pulmonary arteries. No emboli are identified. Scattered mediastinal and hilar lymph nodes are present showing interval increase in size. There is minor gynecomastia. Endplate spurring and subtle levoscoliotic curvature are present at the spine. There are developing tiny layering pleural effusions. Interstitial changes are again noted. Minor patchy areas of groundglass density remain however there is significant interval improvement since the prior. There is no new consolidation or pneumothorax. Limited cuts through the upper abdomen show no contributory abnormality. CT/CT angio chest IMPRESSION: NO CT EVIDENCE OF PULMONARY EMBOLISM. BORDERLINE CARDIOMEGALY. ENLARGING MEDIASTINAL AND HILAR LYMPH NODES. CONTINUED INTERSTITIAL LUNG DISEASE. SIGNIFICANT INTERVAL IMPROVEMENT OF GROUNDGLASS OPACITIES. TINY DEVELOPING PLEURAL EFFUSIONS. Impression dictated by: Lisa Barillas M.D. 04/15/2025 12:07 PM Dictation Location: [place] [address] Electronically authenticated by: [id number] Y Date: 04/15/2025 12:07
== END 2025-04-15 12:39 | disposition home or self-care (01) ==
PROVIDERS: Emergency Provider Emergency Medicine; PCP Family Medicine
DX: J06.9 Acute upper respiratory infection, unspecified (principal); R06.02 Shortness of breath; I50.9 Heart failure, unspecified; Z87.891 Personal history of nicotine dependence
CPT/HCPCS: 36415; 71045; 71275; 80048; 81003; 83880; 84484; 85025; 85378; 87804; 87811; 93005; 99285; Q9967

== ENCOUNTER 2025-04-23 06:35 | Inpatient (IN) | payer MEDICARE, OTHER, SELFPAY ==
--- OUTSIDE RECORDS SUMMARY | 2020-06-07 06:51 | XMS_ITS | Continuity of Care Document ---
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 Name Role Phone Heath Andrew DO Unavailable Unavailable Allergies, Adverse Reactions, Alerts Substance Reaction Status Criticality codeine Hallucinations Active No Informatio n Medications Medication Instructions Dosage Effective Dates (start - stop) Status Comments albuterol sulfate HFA 90 mcg/actuation aerosol inhaler inhale 1 to 2 puffs by mouth four times a day as needed - Active tamsulosin 0.4 mg capsule take 1 capsule by oral route every day 1/2 hour following the same meal each day 0.4 MG - Active losartan 25 mg tablet take 1 tablet by oral route every day 25 MG - Active triamcinolone acetonide 55 mcg nasal spray aerosol spray 2 spray by intranasal route every day in each nostril 110 MCG - Active atorvastatin 80 mg tablet take 1 tablet by oral route every day 80 MG - Active Spiriva Respimat 2.5 mcg/actuation solution for inhalation inhale 2 puff by inhalation route every day at the same time each day 5 MCG - Active omeprazole 20 mg capsule,delayed release take 1 capsule by oral route every day 30 minutes to 1 hour before a meal 20 MG - Active sildenafil 100 mg tablet take 1 tablet b y oral route every day as needed approximately 1 hour before sexual activity 100 MG - Active hydrochlorothiazide 25 mg tablet take 1 tablet by oral route every day 25 MG - Active Fish Oil Concentrate 1,000 mg capsule take 1 capsule by mouth daily - Active vitamin E 400 unit capsule take 1 capsule by mouth daily - Active aspirin 81 mg tablet,delayed release take 1 tablet by oral route every day 81 MG - Active VITAMIN B-12 (unknown strength) take 1 capsule by mouth daily Not Available - Active VITAMIN D3 (unknown strength) take 1 capsule by mouth daily Not Available - Active multivitamin tablet take 1 tablet by mouth daily - Active Procedures Procedure Date OFFICE/OUTPATIENT VISIT, EST OFFICE/OUTPATIENT VISIT, NEW Advance Directives Directive Yes / No Effective Date File Name No Information Encounters Encounter Description Practice Location Reason(s) For Visit Diagnoses Date Provider Providers Copied on Encounter [facility], [address] [place] [address], [id number], [place] tel:[phone] [facility] No Information [facility] DO Max. [address] [place] [address], [id number], [place]. tel:[phone] OFFICE/OUTPATI ENT VISIT, [facility], [address] [place] [address], [id number], [place] tel:[phone] [facility] Review Labs (chief complaint) Body mass index [BMI] 35.0-35.9, adultOther elevated white blood cell countCOPD mixed type [facility] DO [facility]. [address] [place] [address], [id number], [place]. tel:[phone] OFFICE/OUTPATI ENT VISIT, [facility], [address] [place] [address], [id number], [place] tel:[phone] [facility] Est Care (chief complaint)S hortness of breath (chief complaint) Other elevated white blood cell countCOPD mixed typeHypertens ion, unspecified typeBody mass index [BMI] 35.0-35.9, adult [facility] DO Max. [address] [place] [address], [id number], [place]. tel:[phone] Family History Family Member Type Diagnosis Age At Onset Brother Problem Alive and well Payers Payer name Insurance type Covered libertarian ID Authoriza tion(s) Medicare PPS MB [id number] [facility] [place] [id number] Social History Type Description Quantity Date Captured Comments Alcohol Use Details Unknown Caffeine Use Details Unknown Tobacco Use Status No Information Smoking Status No Information Sex Male Sexual Orientation Straight or heterosexual Gender Identity Male Chief Complaint And Reason For Visit No Information Reason For Referral Reason For Referral No Information Plan Of Treatment Date Type Action Status Goal Urinalysis. Due on due Goal ECG. Due on due Goal Diabetes screening. Due on J due Goal Dietary management education , guidance, and counseling completed Goal Diabetes screening. Due on D due Goal Urinalysis. Due on due Goal ECG. Due on due Goal Dietary management education , guidance, and counseling completed History Of Present Illness Encounter Date Complaint History Of Prese nt Illness Review Labs Pt here today to review labs. Asked patient if ne needs any medication refills and he said Dr. Chun Hobbs is prescribing them. He said he came in here to get second opinion on COPD and hope to get exam but states he doesnt think thats going to happen. No other issues or concernsTGrodmarya ANTONCk discussed his labs and he is not having problems breathing and that the white count he had months ago is gone. Shortness of breath the patient' s dyspnea has improved. Episodes occur occasionally. The patient notes inability to get air in. Denies aggravating factors. Symptom is relieved by nebulizers, over the counter drugs and nasal spray. Pertinent negatives include anxiety, chest pressure/discomfort, chills, dry cough, excessive sputum, fatigue, fever, lower extremity edema, neuromuscular weakness, night sweats, pleuritic pain, productive cough, purulent sputum, substernal chest pain, thromboembolic events and unilateral leg edema. Est Care Pt here today fo r Establishing care. PT wants an overall check up as well. Pt states he was diagnosed with COPD from the [place] doctors and patient states he doesnt think he has it. Pt states he had one issue with breathing and was given a nose spray and now has no breathing issues. Pt states he wants his WBC count checked. Pt states a few months ago it was elevated. No other issues or concernsTGrodi HELPER ELECTRICAL Functional Status Date Functional Assessmen t No Information Instructions Date Instruction Additional Infor cheryl Giving encouragement to exercise Related to Body mass index [BMI] 35.0-35.9, adult Dietary management e ducation, guidance, and counseling Related to Body mass index [BMI] 35.0-35.9, adult Giving encouragement to exercise Related to Body mass index [BMI] 35.0-35.9, adult Dietary management e ducation, guidance, and counseling Related to Body mass index [BMI] 35.0-35.9, adult Assessments Type Assessment Date No Information Patient Care Teams Name Effective Dates (start - stop) Status Members No Information
--- OUTSIDE RECORDS SUMMARY | 2024-11-05 04:00 | XMS_ITS ---
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 Name Role Phone Tin Klein Primary Care Provider Evens Morgan [phone] Allergies Allergen (clinical drug ingredient) Drug/Non Drug Allergy documented on EMR Reaction Allergy Type Onset Date Status codeine Codeine mental status change Drug Allergy Active REASON FOR VISIT 6 mos F/U Medications Medication SIG (Take, Route, Frequency, Duration) Notes Start Date End Date Status Zinc 50 MG 1 tablet Orally Once a day 5ActiveVitamin D 50 MCG (2000 UT)1 tablet Orally Once a day10/02/2024 ActiveVitamin E 268 MG (400 UNIT)1 capsule Orally Once a day5Active Vitamin C 100 MG1 tablet Orally Once a day5ActiveTurmericActiveOmega 3 ActiveOmeprazole 20 MGOral; Duration: 90 DaysActiveMagnesium 300 MG1 capsule with a meal Orally Once a day5ActiveNasonex 24HR 50 MCG/ACT4 sprays (2 sprays in each nostril) Nasally Once a day5ActiveTamsulosin HCl 0.4 MG2 capsule Orally Once a day; Duration: 30 days5ActiveFurosemide 40 MG1 tablet Orally Once a day; Duration: 30 days5ActiveIpratropium-Albuterol 0.5-2.5 (3) MG/3MLInhalation; Duration: 8 DaysActiveFish Oil 1200 MG1 capsule Orally Once a day5ActiveCayenne PepperActiveFarxiga 10 MG1 tablet Orally Once a day; Duration: 30 days5ActiveAdvair HFA 230-21 MCG/ACT2 puffs Inhalation Twice a day5ActiveAlbuterol Sulfate (2.5 MG/3ML) 0.083%Inhalation; Duration: 90 DaysActiveAlbuterol Sulfate HFA 108 (90 Base) MCG/ACTInhalation; Duration: 90 DaysActiveCarvedilol 6.25 MGOral; Duration: 90 DaysActive Social History Tobacco Use: Social History Observation Description Date Details (start date - stop date) Former Smoker NA - NA Tobacco Control (Standard) Question Answer Notes Tobacco use: Former smoker How long has it been since you last smoked?Greater than 10 yearsAdditional Findings: Tobacco swq-mtaxHt-pvchkwzv cigarette smoker (10-19/day) Encounters Encounter Location Date Provider Diagnosis Pulmonary [facility] [address] [place] [address] 11/05/2024 Evens Morgan Plan Of Treatment Next Appt Details Provider Name:Tin Klein, 09:00:00 AM, [address] [place] [address], [phone], Provider Name:Tin Klein, 08:00:00 AM, [address] [place] [address], [phone], Procedure Notes * CategorySub-CategoryDetailNotesPFTData:01/17/2024: PFT - [facility]-FEV1/FVC: 83%- FEV1: 70% (2L)-FVC: 62% (2.42L)-Bronchodilator response: Positive-RV: 104%- T%-DLCO: 54%11/30/2020 - Spirometry - [facility]-FEV1/FVC: 71%-FEV1: 85% (2.65L)-FVC: 89% (3.75L)-PFF63-08%: 63%-Bronchodilator response: NoneAlpha-1 AntitrypsinScreening Date:08/22/2023Genotype:MS Progress Notes * Kwadwo CALDERON JDOB:[birth year] (70 yo M)Acc No.[id number]:11/05/2024 UNLOCKED PROGRESS NOTE Follow Up Patient: Kwadwo ZELAYA :JENNIFER TellesOB:1955???Age:69 Y ???Sex:MaleDate:11/05/2024Phone:[phone]:[address], [address] [place], [place], [id number]:Tin Klein Subjective: * Chief Complaints: * 1 . 6 mos F/U. * Medical History: C OPD (chronic obstructive pulmonary disease), Pulmonary fibrosis, unspecified, Post-COVID syndrome, HLD (hyperlipidemia), Peripheral eosinophilia, GERD (gastroesophageal reflux disease), CAD (coronary artery disease), HTN (hypertension), Bronchiectasis, Alpha 1-antitrypsin PiMS phenotype, skilled nursing (current) use of inhaled steroids, History of tobacco abuse. * Surgical History: p ercutaneous transluminal coronary angioplasty , coronary artery stent placement , shoulder surgery-right , sinus surgery-polyps . * Hospitalization/Major Diagno stic Procedure: A cute Exacerbation of COPD-[facility] 07/22/2023, [facility]- Pneumonia/ Respiratory 09/2024. * Family History: F ather: Aortic aneurysm. M other: Alzheimers, diagnosed with Diabetes. B rother(s): alcoholism, diagnosed with Kidney Disease. P aternal aunt: diagnosed with Cancer. M aternal aunt: diagnosed with Cancer. * Social History: ???Tobacco Use:?Tobacco Control (Standard)?Tobacco use:?Former smoker ?How long has it been since you last smoked? Greater than 10 years ?Additional Findings: Tobacco non-user?Ex-moderate cigarette smoker (10-19/day) ?Electronic Cigarette use?Current user?No ?Is there smoking in the household?Other:?Yes Spouse ?LM: Additional Tobacco Questions?Number of Years Pt Smoked:?22 ?Number of Packs per Day:?1 ?When did you stop smokin. ???Miscellaneous:?Caffeine: 1-2 cups per day. ?Occupation?Occupation:?Retired [employer] ?Pets: cats, dogs. ???Drugs/Alcohol:?Drugs?Have you used drugs other than those for medical reasons in the past 12 months??No ?Does the Patient have a History of Drug Abusein the Past??No ?Caffeine?Intake:?1-2 cups per day Coffee ?Do you drink alcohol?: No. ?Do you smoke marijuana?: Denies. * Medications: T aking Advair HFA(Fluticasone-Salmeterol) 230-21 MCG/ACT Aerosol 2 puffs Inhalation Twice a day , Taking Albuterol Sulfate (2.5 MG/3ML) 0.083% Nebulization Solution Inhalation , Taking Albuterol Sulfate HFA 108 (90 Base) MCG/ACT Aerosol Solution Inhalation , Taking Carvedilol 6.25 MG Tablet Oral , Taking Cayenne Pepper , Taking Farxiga(Dapagliflozin Propanediol) 10 MG Tablet 1 tablet Orally Once a day , Taking Fish Oil 1200 MG Capsule 1 capsule Orally Once a day , Taking Furosemide 40 MG Tablet 1 tablet Orally Once a day , Taking Ipratropium-Albuterol 0.5-2.5 (3) MG/3ML Solution Inhalation , Taking Magnesium 300 MG Capsule 1 capsule with a meal Orally Once a day , Taking Nasonex 24HR(Mometasone Furoate) 50 MCG/ACT Suspension 4 sprays (2 sprays in each nostril) Nasally Once a day , Taking [place] 3 , Taking Omeprazole 20 MG Capsule Delayed Release Oral , Taking Tamsulosin HCl 0.4 MG Capsule 2 capsule Orally Once a day , Taking Turmeric , Taking Vitamin C 100 MG Tablet 1 tablet Orally Once a day , Taking Vitamin D 50 MCG (2000 UT) Tablet 1 tablet Orally Once a day , Taking Vitamin E 268 MG (400 UNIT) Capsule 1 capsule Orally Once a day , Taking Zinc 50 MG Tablet 1 tablet Orally Once a day * Allergies: C odeine: mental status change - Allergy. Objective: * Vitals: Assessment: Plan: * Treatment: * Procedures: ???Alpha-1 Antitrypsin:?Screening Date:?08/22/2023.?Genotype:?MS.?PFT:?Data:?01/17/2024: PFT - [facility] ?-FEV1/FVC: 83% ?-FEV1: 70% (2L) ?-FVC: 62% (2.42L) ?-Bronchodilator response: Positive ?-RV: 104% ?-T% ?-DLCO: 54% ?11/30/2020 - Spirometry - [facility] ?-FEV1/FVC: 71% ?-FEV1: 85% (2.65L) ?-FVC: 89% (3.75L) ?-BMQ10-27%: 63% ?-Bronchodilator response: None.? * Preventive Medicine: ??COVID Vaccination:?Has patient had COVID Vaccination?COVID Vaccination?No Patient Refused ??Immunization Status:?Pneumovacc?Prevnar 13-08/16/2018.?Influenza?Pt Refused.?Zostivax?12/21/2016.?Boostrix?08/10/2017.? ??Screenings/Counseling:?FALL RISK SCREENING?Fall Risk Assessment:?No falls in the past year ?Are you afraid of falling??No ?TOBACCO ACTION PLAN?Patient counselled on the dangers of tobacco use and urged to quit.? 05/07/2024 Former ?Education on smoking effects provided 05/07/2024 Former ?FLU EXCLUSION?Reason:?Patient Reason refused/declined ?Type of Patient Reason:?Drug declined by patient ?BMI ACTION PLAN?Above Normal BMI Follow-up?Dietary management education, guidance, and counseling * * Electronic signature of Evens Morgan DO on 04/23/2025 at 07:31 AM ESTSign off status: PendingVisit Status:?R/S (Rescheduled) * Provider: Sho Morgan DO Date: 0 11/05/2024 Generated for Printing/Faxing/eTransmitting on:?04/23/2025 07:31 AM EST
--- OUTSIDE RECORDS SUMMARY | 2025-02-27 03:30 | XMS_ITS ---
Author Organization [facility] in [place] Address [address] [place] [address] Care Team Providers Care Customer Solutions Specialist Name Role Phone Latoya Tin Primary Care Provider [phone] REASON FOR VISIT 3 month f/u Encounters Encounter Location Date Provider Diagnosis [facility] [address] [place] [address] 02/27/2025 Tin Klein Plan Of Treatment Next Appt Details Provider Name:Tin Klein, 09:00:00 AM, [address] [facility], [place], [address], Provider Name:Tin Klein, 08:00:00 AM, [address] [facility], [place], [address], Progress Notes * Kwadwo CALDERONDOB:[birth year] (70 yo M)Acc No.[id number]:02/27/2025 UNLOCKED PROGRESS NOTE Progress Note Patient: Barbara Kwadwo PRASAD :?Torres Klein ([facility]), MDDOB:1955???Age: 70 Y???Sex:MaleDate:02/27/2025Phone:[phone]:[address], [place]-[phone] Subjective: * Chief Complaints: * 1 . 3 month f/u. * Medical History: Objective: * Vitals: Assessment: Plan: * Treatment: * * Electronic signature of Tin Klein MD, [id number] on 04/23/2025 at 07:29 AM EST Sign off status: PendingVisit Status:?CANC (Cancelled) * Provider: Katerin Klein ([facility])MD Date: Generated for Printing/Faxing/eTransmitting on:?04/23/2025 07:29 AM EST
--- OUTSIDE RECORDS SUMMARY | 2025-04-20 09:34 | XMS_ITS | Encounter Summary ---
Author Organization [facility] Address [address] [place] [address] Care Team Providers Care Control Technician Name Role Phone Torres Klein MD Primary Care Provider [phone] Reason for Referral * Imaging (Routine) - AuthorizedSpecialtyDiagnoses / ProceduresReferred By ContactReferred To Contact Diagnoses Ischemic cardiomyopathy Procedures MR cardiac morphology and function w and wo IV contrast Luba Ortega MD [address] [facility] [address] [place] [address] Phone: tel: fax: Referral IDStatusReasonStart DateExpiration DateVisits RequestedVisits [id number]/20/202510/20/202611 Reason for Visit * Imaging (Routine) - AuthorizedSpecialtyDiagnoses / ProceduresReferred By ContactReferred To Contact Diagnoses Ischemic cardiomyopathy Procedures MR cardiac morphology and function w and wo IV contrast Luba Ortega MD [address] [place] [address] Phone: tel: fax: Referral IDStatusReasonStart DateExpiration DateVisits RequestedVisits [id number]/20/202510/20/202611 Encounter Details DateTypeDepartmentCare Team (Latest Contact Info)Ocsxpgcdssr64/24/2025 9:34 AM EST - 04/20/2025 11:59 PM ESTHospital Encounter [facility] [address] [place] [address] Ischemic cardiomyopathy Discharge Disposition: Home or Self Care () Social History Tobacco UseTypesPacks/DayYears UsedDateSmoking Tobacco: FormerCigarettes Smokeless Tobacco: NeverAlcohol UseStandard Drinks/WeekCommentsNot Currently0 (1 standard drink = 0.6 oz pure alcohol)Sex and Gender InformationValueDate RecordedSex Assigned at ZhqhdMzka79/09/2025 10:12 AM EDTLegal WdzBqqb7702/12/2024 10:58 AM EDTGender SrtcebevDrqc65/09/2025 10:12 AM EDTSexual Orientation Heterosexual or Kreuejpk64/09/2025 10:12 AM EDTdocumented as of this encounter Medications at Time of Discharge MedicationSigDispense QuantityRefillsLast FilledStart DateEnd Date Advair HFA 230-21 mcg/actuation inhaler Inhale 2 puffs in the morning and at bedtime.10/02/2024 albuterol 90 mcg/actuation inhaler Inhale.07/28/2022 atorvastatin (Lipitor) 40 mg tablet Indications:Coronary artery disease involving chenega coronary artery of chenega heart without angina pectorisTake 1 tablet (40 mg) by mouth at bedtime. 90 tablet benzonatate (Tessalon) 200 mg capsule Take 200 mg by mouth if needed in the morning, at noon, and at bedtime. carvedilol (Coreg) 6.25 mg tablet Take 6.25 mg by mouth with breakfast and with evening meal.04/16/2024 cetirizine (ZyrTEC) 10 mg chewable tablet Chew 10 mg in the morning. empagliflozin (Jardiance) 10 mg Take 10 mg by mouth in the morning.12/03/2024 fluticasone (Flonase) 50 mcg/actuation nasal spray Administer 2 sprays into each nostril in the morning. ipratropium-albuteroL (Duo-Neb) 0.5-2.5 mg/3 mL nebulizer solution Take 3 mL by nebulization in the morning, afternoon, and at bedtime.09/16/2024 metoprolol succinate XL (Toprol-XL) 25 mg 24 hr tablet Indications:Coronary artery disease involving chenega coronary artery of chenega heart without angina pectorisTake 0.5 tablets (12.5 mg) by mouth once daily as directed. Do not crush or chew. 45 tablet metoprolol succinate XL (Toprol-XL) 25 mg 24 hr tablet Indications:Ischemic cardiomyopathyTake 1 tablet (25 mg) by mouth once daily as directed. 90 tablet montelukast (Singulair) 10 mg tablet Take 10 mg by mouth in the morning.12/02/2024 omega-3 fatty acids-fish oil (One-Per-Day [place]-3) 684-1,200 mg capsule Take 1 capsule by mouth once daily as directed. omeprazole (PriLOSEC) [address] capsule Take 20 mg by mouth before breakfast.08/15/2021 spironolactone (Aldactone) 25 mg tablet Take 25 mg by mouth in the morning.12/02/2024documented as of this encounter Plan of Treatment Not on file documented as of this encounter Procedures Procedure NamePriorityDate/TimeAssociated DiagnosisCommentsMRI CARDIAC MORPHOLOGY AND FUNCTION W AND WO IV HEAHJDAXHggdxze44/24/2025 11:56 AM EST Ischemic cardiomyopathy documented in this encounter Results * MR cardiac morphology and function w and wo IV contrast (04/20/2025 11:56 AM EST)Anatomical RegionLateralityModalityBody, HeartMagnetic ResonanceSpecimen (Source)Anatomical Location / LateralityCollection Method / VolumeCollection TimeReceived Time04/22/2025 2:33 AM EST Impressions 04/22/2025 2:37 AM EST Impression: 1. Moderate to severely diminished left ventricular systolic function. 2. Delayed myocardial enhancement of the nasal to mid inferior lateral wall compatible with prior ischemia involving less than 50% of the myocardium which would suggest viability. Transmural infarct of the distal anterior inferior wall and apex. 3. Left ventricular dilatation. Electronically signed: Ricardo Mora. Narrative 04/22/2025 2:37 AM EST STUDY: Cardiac MRI without and with contrast CLINICAL HISTORY: Ischemic cardiomyopathy. COMPARISON: None. TECHNIQUE: Multiplanar multisequence gated cardiac MRI was performed with steady state free precession imaging and pre- and postcontrast delayed myocardial enhancement views obtained prior to and following the uneventful administration of intravenous gadolinium contrast. FINDINGS: Moderate to severely diminished left ventricle systolic function with global left ventricular hypokinesis. Left ventricular quantitative parameters as follows: Ejection Fraction 36% (normal: male = 49-79 %; female = 52-79 %). End Diastolic Diameter is 623 mm (normal: Male: 42 -62 mm, female 39-59 mm). Stroke Volume 97 mL. End Diastolic Volume 270 mL (normal: male = 95-215 ml; female = 78-1 67 ml). End Systolic Volume 173 mL (normal: male = 25-85 ml, female = 21-64 ml). Anteroseptal wall thickness: 1.3 cm. Posterolateral wall thickness: 0.7 cm. Left ventricle is dilated. There is subcutaneous and myocardial delayed enhancement of the basal to mid lateral inferior wall involving less than 50% of the myocardium which would suggest viability. There is transmural infarct of the distal anterior inferior wall and apex. There is no evidence of left ventricular filling defect or thrombus. Left atrium is mildly dilated. Mild to moderate mitral regurgitation. Right atrium is normal in size. No significant tricuspid regurgitation. Normal right ventricular wall motion, function and size. Thoracic aorta and pulmonary artery appear to be normal caliber. Small bilateral pleural effusions with lower lung atelectasis and mild vascular congestion. Extracardiac Findings: None. Procedure Note Ricardo Mora MD - 04/22/2025 STUDY: Cardiac MRI without and with contrast CLINICAL HISTORY: Ischemic cardiomyopathy. COMPARISON: None. TECHNIQUE: Multiplanar multisequence gated cardiac MRI was performed withsteady state free precession imaging and pre- and postcontrast delayedmyocardial enhancement views obtained prior to and following the uneventfuladministration of intravenous gadolinium contrast. FINDINGS: Moderate to severely diminished left ventricle systolic function withglobal left ventricular hypokinesis. Left ventricular quantitative parameters as follows: Ejection Fraction 36% (normal: male = 49-79 %; female = 52-79 %). End Diastolic Diameter is 623 mm (normal: Male: 42 -62 mm, female 39-59mm). Stroke Volume 97 mL. End Diastolic Volume 270 mL (normal: male = 95-215 ml; female = 78-1 67ml). End Systolic Volume 173 mL (normal: male = 25-85 ml, female = 21-64 ml). Anteroseptal wall thickness: 1.3 cm. Posterolateral wall thickness: 0.7 cm. Left ventricle is dilated. There is subcutaneous and myocardial delayed enhancement of the basal to mid lateral inferior wall involving less than50% of the myocardium which would suggest viability. There is transmural infarctof the distal anterior inferior wall and apex. There is no evidence of leftventricular filling defect or thrombus. Left atrium is mildly dilated. Mild to moderate mitral regurgitation. Right atrium is normal in size. No significant tricuspid regurgitation. Normal right ventricular wall motion, function and size. Thoracic aorta and pulmonary artery appear to be normal caliber. Small bilateral pleural effusions with lower lung atelectasis and mildvascular congestion. Extracardiac Findings: None. IMPRESSION: Impression: 1. Moderate to severely diminished left ventricular systolic function. 2. Delayed myocardial enhancement of the nasal to mid inferior lateralwall compatible with prior ischemia involving less than 50% of the myocardiumwhich would suggest viability. Transmural infarct of the distal anteriorinferior wall and apex. 3. Left ventricular dilatation. Electronically signed: Ricardo Mora. Authorizing ProviderResult TypeResult StatusEhab chantellmassachusetts eye & ear infirmaryalmaz SHELLEYKatharine MRI PROCEDURES Final Result documented in this encounter Visit Diagnoses Diagnosis Ischemic cardiomyopathy Other specified forms of chronic ischemic heart disease documented in this encounter Administered Medications Medication OrderMAR ActionAction DateDoseRateSite gadoterate meglumine 0.5 mmol/mL contrast injection 20 mL 20 mL, intravenous, Once in imaging, Starting on Sun04/20/25 at 1045, For 1 dose, Administer undiluted as rapid I.V. bolus injection 04/20/2025 10:47 AM EST20 mL gadoterate meglumine 0.5 mmol/mL contrast injection 20 mL 20 mL, intravenous, Once in imaging, Starting on Sun04/20/25 at 1046, For 1 dose, Administer undiluted as rapid I.V. bolus injection 04/20/2025 10:47 AM EST20 mLdocumented in this encounter Care Teams Team MemberRelationshipSpecialtyStart DateEnd Torres Klein MD [address] [place] [id number] PCP - GeneralFamily Medicine12/03/24documented as of this encounter
[2025-04-23] VITALS (35 sets, daily range): BP systolic 130–153; BP diastolic 75–99; PULSE 75–97; TEMP 36.5–36.8; O2SAT 92–99; BMI 33.6; BMI 35.4
--- NOTE | 2025-04-23 07:11 | ECG_ITS ---
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 Measurements Intervals [place] Rate: 72 P: 32 SD: 160 QRS: 5 QRSD: 104 T: 100 QT: 392 QTc: 416 Interpretive Statements 1100 Sinus rhythm 4068 Nonspecific Twave abnormality 9140 abnormal rhythm ECG Compared to ECG 04/15/2025 09:02:58 Myocardial infarct finding no longer present Left ventricular hypertrophy no longer present Electronically Signed On 04-23-2025 8:49:46 EST by MELANY CHEN M.D.
--- NOTE | 2025-04-23 07:11 | XR_ITS ---
[facility] [place] [id number] Patient Name: DEMARCUS CALDERON MRN: [id number] date: 1955 Sex: M Assigned Patient Location: ER Current Patient Location: ED.MAIN Accession/Order Number: [id number] Exam Date: 04/23/2025 07:34 Report Date: 04/23/2025 08:25 At the request of: INDRA BERNARD MD Procedure: XR chest 1V Single view chest: CLINICAL HISTORY: SOB COMPARISON: CT chest 04/15/2025 FINDINGS: Cardiomegaly with interstitial changes. Findings are similar to the prior CT study. No new consolidation pneumothorax large pleural effusion or free air. XR/XR chest 1V IMPRESSION: CARDIOMEGALY WITH INTERSTITIAL CHANGES SIMILAR TO THE PRIOR CT STUDY. NO NEW CONSOLIDATION TO SUGGEST PNEUMONIA. Impression dictated by: Jd Quinn Jr., D.O. 04/23/2025 8:25 AM Dictation Location: [place] [address] Electronically authenticated by: [id number] Y Date: 04/23/2025 08:25
--- NOTE | 2025-04-23 07:12 | ED.GENADUL1 ---
HPI HPI - General Adult General Chief complaint: Shortness of Breath/Dyspnea Stated complaint: SOB Time Seen by Provider: 04/23/25 07:07 Source: patient Mode of arrival: Wheelchair Limitations: no limitations History of Present Illness HPI narrative: 70-year-old male presents to the emergency department for difficulty breathing. He was here about 10 days ago and had a URI at that time and did not require admission. Since then he has had increasing difficulty breathing particularly the last 24 hours and today he became shaky. He has been coughing up some green phlegm. No complaints of chest pain or back pain or known fever. No hemoptysis. Exertion makes his shortness of breath worse. Related Data Home Medications ?Medication ?Instructions ?Recorded ?Confirmed tamsulosin 0.4 mg capsule 0.8 mg PO .qhs 07/22/23 02/17/25 furosemide 40 mg tablet (Lasix) 40 mg PO DAILY 10/09/24 04/15/25 dapagliflozin propanediol 10 mg 10 mg PO DAILY 10/18/24 02/17/25 tablet spironolactone 25 mg tablet 12.5 mg PO DAILY 10/18/24 02/17/25 fluticasone fur. 200 mcg-umeclid 1 inh inhalation Q24H 04/23/25 04/23/25 62.5 mcg-vilant 25 mcg inhalat.powder (Trelegy Ellipta) fluticasone propionate 230 2 inh inhalation Q12H 04/23/25 04/23/25 mcg-salmeterol 21 mcg/actuation HFA inhaler (Advair HFA) metoprolol succinate 25 mg 25 mg PO DAILY 04/23/25 04/23/25 tablet,extended release 24 hr Previous Rx's ?Medication ?Instructions ?Recorded albuterol sulfate 90 mcg/actuation 2 inh inhalation Q6H PRN shortness 12/25/23 aerosol inhaler (Ventolin HFA) of breath or wheezing #6.7 grams carvedilol 12.5 mg tablet (Coreg) 12.5 mg PO BID #60 tabs 10/13/24 fluticasone propionate 50 2 spray intranasal QD #16 grams 10/13/24 mcg/actuation nasal spray,suspension montelukast 10 mg tablet 10 mg PO DAILY #30 tabs 10/13/24 (Singulair) fluconazole 100 mg tablet 100 mg PO QD #10 tabs 10/21/24 Allergies Allergy/AdvReac Type Severity Reaction Status Date / Time codeine AdvReac Intermediate Hallucinati Verified 04/23/25 06:50 ng Opioid HPI Opioid Management Most Recent Opioid Data: Last Pain Scale 5 02/24/25, 12:10 Last ORT Total Score 0 10/18/24, 23:12 Last ORT Risk Category Low Risk 10/18/24, 23:12 Review of Systems ROS Narrative A ten point review of systems is negative except as noted above. [facility] Medical History Pneumonia due to COVID-19 virus ?U07.1 - COVID-19 (ICD-10) ?J12.82 - Pneumonia due to coronavirus disease 2019 (ICD-10) COVID-19 ?U07.1 - COVID-19 (ICD-10) Acute on chronic congestive heart failure ?I50.9 - Heart failure, unspecified (ICD-10) COPD exacerbation ?J44.1 - Chronic obstructive pulmonary disease with (acute) exacerbation (ICD-10) Congestive heart failure ?I50.9 - Heart failure, unspecified (ICD-10) BPH (benign prostatic hyperplasia) ?N40.0 - Benign prostatic hyperplasia without lower urinary tract symptoms (ICD-10) CAD (coronary artery disease) ?I25.10 - Atherosclerotic heart disease of chenega coronary artery without angina pectoris (ICD-10) GERD (gastroesophageal reflux disease) ?K21.9 - Gastro-esophageal reflux disease without esophagitis (ICD-10) Hypertension ?I10 - Essential (primary) hypertension (ICD-10) COPD (chronic obstructive pulmonary disease) ?J44.9 - Chronic obstructive pulmonary disease, unspecified (ICD-10) Bronchitis ?J40 - Bronchitis, not specified as acute or chronic (ICD-10) Emphysema of lung ?J43.9 - Emphysema, unspecified (ICD-10) Heart attack ?I21.9 - Acute myocardial infarction, unspecified (ICD-10) COPD exacerbation ?J44.1 - Chronic obstructive pulmonary disease with (acute) exacerbation (ICD-10) COVID-19 ?U07.1 - COVID-19 (ICD-10) Surgical History H/O sinus surgery ?Z98.890 - Other specified postprocedural states (ICD-10) H/O shoulder surgery ?Z98.890 - Other specified postprocedural states (ICD-10) H/O heart artery stent ?Z95.5 - Presence of coronary angioplasty implant and graft (ICD-10) Family History Aunt Family history of cancer Mother Family history of diabetes mellitus Brother Family history of hypertension Father Family history of hypertension Social History Within the past year, how often did you have a drink containing alcohol: never Score interpretation: A score less than 4 is consistent with normal alcohol consumption. 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 Known occupational exposures/hazards: No Highest level of school completed/degree received: high school graduate Are you now , , , , never or living with a partner: In a typical week, how many times do you talk on the telephone with family, friends, or neighbors: 3 or more times per week How often do you get together with friends or relatives: 3 or more times per week How often do you attend anabaptist or protestant services: never Little interest or pleasure in doing things: not at all Feeling down, depressed, or hopeless: not at all Feel stressed/tense/nervous/anxious/difficulty sleeping: not at all Do you think of yourself as: straight/heterosexual Gender Identity: male Exam Narrative Exam Narrative: Nurses note and vital signs reviewed General:The patient appears tremorous and mildly dyspneic. He is not in acute distress. Skin:Warm, dry, no pallor noted.There is no rash noted. Head:Normocephalic, atraumatic Eye: Normal conjunctiva, no drainage Ears, Nose, Mouth, and Throat: oral mucosa is moist. Nares patent. Cardiovascular:Regular Rate and Rhythm Respiratory: Bilateral rhonchi present Back:non-tender GI: Soft and nontender Musculoskeletal: The patient has no evidence of calf tenderness, no pitting edema, symmetrical pulses noted bilaterally Neurological: Awake and alert, tremorous Psychiatric:Cooperative Constitutional Vital Signs, click to edit/add: Last Vital Signs Temp 98.2 F 04/23/25 06:46 Pulse 76 04/23/25 07:30 Resp 16 04/23/25 07:30 BP 130/75 04/23/25 07:00 Pulse Ox 97 04/23/25 07:30 O2 Del Method Nasal Cannula 04/23/25 07:22 O2 Flow Rate 2 04/23/25 07:22 Course Vital Signs Vital signs: Vital Signs Pulse Oximetry 92 L 04/23/25 06:41 Temperature 98.2 F 04/23/25 06:46 Pulse Rate 76 04/23/25 07:30 Respiratory Rate 16 04/23/25 07:30 Blood Pressure 130/75 04/23/25 07:00 Pulse Oximetry 97 04/23/25 07:30 Oxygen Delivery Method Nasal Cannula 04/23/25 07:22 Oxygen Delivery Flow Rate 2 04/23/25 07:22 Medical Decision Making MDM Narrative Medical decision making narrative: Chest x-ray does not show heart failure or pneumonia. Blood cultures were obtained and he was given IV antibiotics and is being admitted. He was also given IV Solu-Medrol and an aerosol treatment. I do not suspect pulmonary embolism. Treatment diagnosis and disposition were discussed with the patient and his . Differential Diagnosis Differential Diagnosis: Pneumonia, COVID, influenza Lab Data Lab results reviewed: Yes I reviewed the patient's lab results Labs: Lab Results 04/23/25 04/23/25 Range/Units 06:50 07:50 WBC 9.1 (4.0-11.0) 10^3/uL RBC 4.68 L (4.70-6.10) 10^6/uL Hgb 13.2 L (14.0-18.0) g/dL Hct 38.3 L (42.0-54.0) % MCV 81.8 (80.0-94.0) fL MCH 28.2 (25.9-34.0) pg MCHC 34.5 (29.9-35.2) g/dL RDW 15.8 H (11.0-15.0) % Plt Count 252 (150-450) 10^3/uL MPV 10.1 (9.5-13.5) fL Neut % (Auto) 65.5 (43.0-75.0) % Lymph % (Auto) 16.1 L (20.5-60.0) % [place] % (Auto) 10.8 (1.7-12.0) % Eos % (Auto) 6.8 (0.9-7.0) % Baso % (Auto) 0.5 (0.2-2.0) % Neut # (Auto) 6.0 (1.4-6.5) 10^3/uL Lymph # (Auto) 1.5 (1.2-3.8) 10^3/uL [place] # (Auto) 1.0 H (0.3-0.8) 10^3/uL Eos # (Auto) 0.6 (0.0-0.7) 10^3/uL Baso # (Auto) 0.1 (0.0-0.1) 10^3/uL Abs Immat Gran (auto) 0.03 (0.00-0.03) 10^3/uL Imm/Tot Granulo (auto) 0.3 (0.0-0.5) % Sodium 137 (136-145) mmol/L Potassium 3.8 (3.5-5.1) mmol/L Chloride 101 (98-107) mmol/L Carbon Dioxide 24.6 (21.0-32.0) mmol/L Anion Gap 15.2 BUN 10.0 (7.0-18.0) mg/dL Creatinine 0.87 (0.70-1.30) mg/dL Est GFR ( Amer) >60 (>=60 mL/min/1.73m^2) Est GFR (Non-Af Amer) >60 (>=60 mL/min/1.73m^2) BUN/Creatinine Ratio 11.5 Glucose 104 (74-106) mg/dL Lactate 1.4 (0.4-2.0) mmol/L Calcium 8.5 (8.5-10.1) mg/dL Troponin I High Sens 41.5 (4.0-76.1) pg/mL Influenza Type A Ag Negative Influenza Type B Ag Negative SARS-CoV-2 Ag (CV2AG) Negative (NEGATIVE) Imaging Data Chest x-ray: Radiologist's impression: ITS Impressions Chest X-Ray 04/23/25 07:11 IMPRESSION: CARDIOMEGALY WITH INTERSTITIAL CHANGES SIMILAR TO THE PRIOR CT STUDY. NO NEW CONSOLIDATION TO SUGGEST PNEUMONIA. Impression dictated by: Jd Quinn Jr., D.O. 04/23/2025 8:25 AM Dictation Location: [place] [address] Electronically authenticated by: [id number] Y Date: 04/23/2025 08:25 ECG Data Attestation: I personally reviewed and interpreted this ECG as follows: (EKG on my interpretation shows sinus rhythm with rate of 72 and no acute change) Critical Care Time Critical Care Time Critical Care Time: Yes Total Critical Care Time: 35 Attestation: Due to the high probability of sudden and clinically significant deterioration in the patient's condition he/she required the highest level of my preparedness to intervene urgently I provided critical care time including documentation time, medication orders and management, reevaluation, vital sign assessment, ordering and reviewing of lab tests, ordering and reviewing of x-ray studies, and admission orders. Aggregate critical care time is 35 minutes including only time during which I was engaged in work directly related to his/her care and did not include time spent treating other patients simultaneously. Discharge Plan Discharge Chief Complaint: Shortness of Breath/Dyspnea Clinical Impression: Acute exacerbation of chronic obstructive pulmonary disease Patient Disposition: Admitted As Inpatient Time of Disposition Decision: 08:42 Condition: Fair
[2025-04-23 07:19] LABS: Hematocrit 38.3 % (42.0-54.0); Hemoglobin 13.2 g/dL (14.0-18.0); Immature Granulocytes Abs Auto 0.03 10^3/uL (0.00-0.03); Immature Granulocytes Pct Auto 0.3 % (0.0-0.5); Lymphocytes Absolute Auto 1.5 10^3/uL (1.2-3.8); Mean Corpuscular HGB Conc 34.5 g/dL (29.9-35.2); Mean Corpuscular Hemoglobin 28.2 pg (25.9-34.0); Mean Corpuscular Volume 81.8 fL (80.0-94.0); Platelet Count 252 10^3/uL (150-450); Red Blood Count 4.68 10^6/uL (4.70-6.10); White Blood Count 9.1 10^3/uL (4.0-11.0)
[2025-04-23] MEDS: ALBUTEROL SULFATE 2.5 MG/3 ML VIAL NEB IH (07:21)
[2025-04-23] MEDS: METHYLPREDNISOLONE SOD SUCC PF 125 MG/2 ML VIAL IVP (07:25)
--- OUTSIDE RECORDS SUMMARY | 2025-04-23 07:30 | XMS_ITS | CCD ---
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 Sera Flower Primary Care Unavailab Rene [...] Unavailable Sera Flower MD Primary Care Provider [phone] Indira RN, Tootie Unavailable [phone] Matthew SHELLEY, Rene Porter Unavailable Indira CAMACHO, Tootie Unavailable Sera Flower Primary Care Physician Unavailab moisés Carreon RN, Orquidea Unavailable [phone] [facility] Orquidea CAMACHO Unavailable Unavailable Rene Cortez MD Unavailable [phone] Eddie SHELLEY, Chalino P Unavailable [phone] John Baptiste MD Unavailable [phone] Gregory DIGITAL MEDIA PLANNER, Gurjit Calabrese Unavailable RISALITI, SALLY R Attending [...] Provider Mirian Huffman MD Other Provider [facility]avan [facility] Other Provider Vincenzo Caraballo DO Attending Provider Torres Pate MD Primary Care Provider Kiya Richmond APRN Attending Provider Torres Pate [...] Unavailable Sera Flower MD Primary Care Provider [phone] Indira CAMACHO, Tootie Unavailable Rene Cortez MD Unavailable Lauri CAMACHO, Orquidea Unavailable [phone] [facility] RN, Orquidea Unavailable Chalino Phoenix DO Unavailable John Baptiste MD Unavailable [phone] Unallocated Gita SHELLEY Provider Primary Care Provi gonzales Torres Pate MD Primary Care Provider [phone] Allergies Allergy ClassificationReported Allergen(s)Allergy TypeDate of OnsetReaction(s) Facility (20 sources)Codeine; Translations: [codeine]Drug Ajsrlhi46-28-5941Laczmfco, Unknown, Nausea And Vomiting, Other, Unknown (qualifier value)[facility] (7 sources)Codeine / guaiFENesin; Translations: [CODEINE-GUAIFENESIN]Drug Haewdnj85-69-6545Tgsax: See CommentsAshtabula [facility] (7 sources)guaiFENesin; Translations: [GUAIFENESIN]Drug Nkaqtvh09-76-7204Dfhpy: See CommentsAshtabula [facility] (20 sources)guaiFENesinDrug Pkhsywx04-19-6629IrwfkKZ[facility] (1 source)CodeineDrug Mmdluxq81-54-0387XwwhohvmzE[facility] Medications Current Medications MedicationDrug Class(es)DatesSig (Normalized)Sig (Original)acetaminophen 325 mg / HYDROcodone bitartrate 5 mg oral tablet (1 source)Opioid AgonistStart: 97-38-3652fxan 1 tablet by mouth every hourNorco 325 mg-5 mg oral tablet See Instructions, 1 tab(s), Refill(s) 0, Take 1 hour prior to your procedure, [facility], 172, cm, 06/23/24 15:02:00 EST, Height/Length Dosing, 111.5, kg, 06/23/24 15:02:00 EST, Weight Dosing Start Date: 07/29/24 Status: Orderedacetaminophen 325 mg / traMADol hydrochloride 37.5 mg oral tablet (1 source)Opioid AgonistStart: 85-99-4974Cwnzfetk 325 mg-37.5 mg Tab See Instructions, 20 tab(s), Refill(s) 0, take 1-2 every 6 hrs prn for pain - following procedure, [facility], 172, cm, 06/23/24 15:02:00 EST, Height/Length Dosing, 111.5, kg, 06/23/24 15:02:00 EST, Weight Dosing Start Date: 07/29/24 Status: [id number] 200 actuat albuterol 0.09 mg/actuat metered dose inhaler (20 sources)beta2-Adrenergic AgonistStart: 21-09-1921ktub 2 puff(s) by inhalation every six hours as needed for wheezingStart: 04-72-4889yyuripvmb Start Date: 04/16/24 Status: Ordered Repeat number: 1Start: 01-42-0532dqvkirlhp Start Date: 04/16/24 Status: OrderedStart: 50-58-2926jbgrkpzsm (2.5 MG/3ML) 0.083% nebulizer solution Indications: Chronic obstructive pulmonary disease, unspecified COPD type (HCC) Take 3 mL (2.5 mg) by nebulization every 8 (eight) hours 810 mL 3 07/11/2023 ActiveStart: 15-59-0254jsrvdukni (2.5 MG/3ML) 0.083% nebulizer solution Indications: Chronic obstructive pulmonary disease, unspecified COPD type (CMS/HCC) Take 3 mL (2.5 mg) by nebulization every 8 (eight) hours 75 mL 3 06/21/2023 ActiveStart: 06-14-2023 End: 93-45-1681lboh 2.5 mg by inhalation every four to six hours as needed for wheezingAlbuterol Sulfate 2.5 mg/0.5 mL solution for nebulization Discontinued 2.5 MG INHALATION EVERY 4-6 HOURS as needed for shortness of breath or wheezing June 14, 2023 1:00am October 17, 2024 2:00amStart: 11-18-5644usod 2 puff(s) by inhalation every six hours for wheezingalbuterol HFA 90 mcg/act inhaler Indications: Chronic obstructive pulmonary disease, unspecified COPD type (HCC) Inhale 2 puffs every 6 (six) hours if needed for wheezing or shortness of breath 18 g 3 07/09/2023 ActiveStart: 04-26-2018 End: 58-10-3661iuce 2.5 mg by inhalation every four hours as needed for wheezing Albuterol Sulfate 2.5 mg /3 mL (0.083 %) solution for nebulization Discontinued 2.5 MG INHALATION Q4H as needed for shortness of breath or wheezing April 26, 2018 1:00am July 28, 2019 7:51amStart: 09-19-2017 End: 36-43-1976mdrn 2.5 mg by inhalation every six hours as needed for wheezing Albuterol Sulfate 2.5 mg /3 mL (0.083 %) solution for nebulization Discontinued 2.5 MG INHALATION Q6H as needed for shortness of breath or wheezing September 19, 2017 12:00am October 17, 2024 2:00amalbuterol 0.833 mg/ml / ipratropium bromide 0.167 mg/ml inhalation solution (3 sources)Anticholinergic, beta2-Adrenergic AgonistStart: 74-96-7234svuo 3 mL by inhalation every six hours as needed for wheezingamoxicillin 875 mg / clavulanate 125 mg oral tablet (2 sources)Penicillin-class AntibacterialStart: 05-07-2024 End: 26-91-0918pxdk 1 tablet by mouth in the morningamoxicillin-clavulanate [...] sources)Platelet Aggregation Inhibitor, Nonsteroidal Anti-inflammatory Drug Start: 50-79-8710dkkv 81 mg by mouth once dailyAspirin Active 81 MG PO Daily July 28, 2019 12:00amStart: 07-28-2019 End: 69-72-9682revt 1 tablet by mouth once dailyAspirin 81 mg Tablet,Chewable Discontinued 81 MG PO Daily July 28, 2019 1:00am October 17, 2024 2:00amStart: 06-07-2016 End: 50-45-2340ridr 1 tablet by mouth once dailyaspirin 81 mg EC tablet Indications: Ischemic cardiomyopathy Take 1 tablet (81 mg) by mouth once daily. 30 tablet 11 10/24/2024 10/24/2025 ActiveComment on above:81 mg.atorvastatin 40 mg oral tablet (20 sources)HMG-CoA Reductase InhibitorStart: 10-11-2020 End: 62-45-8773cxix 1 tablet by mouth once dailyatorvastatin (Lipitor) 40 mg tablet Take 1 tablet (40 mg) by mouth once daily. 10/11/2020 10/18/2023 Discontinued (Therapy completed)Start: 04-26-2018 End: 54-03-6381Iqytmdnndhcm (Lipitor) 80 mg tablet Discontinued April 26, 2018 1:00am July 28, 2019 7:51amStart: 04-26-2018 End: 77-33-2263Flqbgjijotls (Lipitor) 80 mg tablet Discontinued TABLET April 26, 2018 1:00am July 28, 2019 7:51ambenoxinate hydrochloride 4 mg/ml / fluorescein sodium 2.5 mg/ml ophthalmic solution (1 source)Diagnostic DyeStart: 05-01-2022 End: 62-04-1579fezxwzezilf-benoxinate 0.25-0.4 % 1 Drop (FLURESS)benzonatate 100 mg oral capsule (18 sources)Non-narcotic AntitussiveStart: 02-21-2024 End: 75-11-5649rxsm 1 capsule by mouth three times daily as needed for cough benzonatate (Tessalon) 100 MG capsule Indications: Acute cough Take 1 capsule (100 mg) by mouth 3 (three) times a day as needed for cough Do not crush or chew. 30 capsule 1 02/21/2024 07/02/2024 DiscontinuedStart: 44-37-1084pcaq 1 capsule by mouth three times daily as needed for coughStart: 87-19-3072cper 1 capsule by mouth three times daily for coughbenzonatate (TESSALON PERLE) 100 mg capsule take 1 capsule by mouth three times a day if needed forcough SWALLOW WHOLE 0 01/17/2022 ActiveComment on above:take 1 capsule by mouth three times a day if needed for cough SWALLOW [id number] actuat budesonide 0.16 mg/actuat / formoterol fumarate 0.0048 mg/actuat / glycopyrrolate 0.009 mg/actuat metered dose inhaler (7 sources)Corticosteroid, beta2-Adrenergic AgonistStart: 05-07-2024 End: 97-84-7131xamc 2 puff(s) by mouth twice dailyBreztri Aerosphere 160-9-4.8 MCG/ACT aerosol INHALE 2 PUFFS BY MOUTH 2 TIMES A DAY, RINSE MOUTH AFTER USE 05/07/2024 07/02/2024 Discontinued (Therapy completed)Start: 09-05-2023 End: 46-31-0243Pdtnmlc Aerosphere 160-9-4.8 MCG/ACT aerosol 09/05/2023 02/27/2024 Discontinuedcarvedilol 6.25 mg oral tablet (20 sources)alpha-Adrenergic Ne, beta-Adrenergic BlockerStart: 10-24-2024 End: 22-31-9674epyl 0.5 tablet by mouth twice dailycarvedilol (Coreg) 6.25 mg tablet Indications: Ischemic cardiomyopathy Take 0.5 tablets (3.125 mg) by mouth 2 times daily (morning and late afternoon). 90 tablet 3 10/24/2024 10/24/2025 ActiveStart: 06-27-2023 End: 87-49-0189pavz 1 tablet by mouth twice dailycarvedilol 6.25 mg Tab 6.25 mg = 1 tab(s), Oral, BID Start Date: 04/16/24 Status: Ordered Repeat number: 1 Start: 96-35-7431hoqbqmcjux (COREG) 6.25 mg tabletStart: 06-28-2020 End: 27-58-5463lthb 0.5 tablet by mouth twice dailycarvedilol (Coreg) 12.5 mg tablet Take 0.5 tablets (6.25 mg) by mouth 2 times a day. 06/28/2020 05/15/2024 Discontinued (Therapy completed)Start: 79-40-4277gcra 1 tablet by mouth twice dailycetirizine hydrochloride 10 mg oral tablet (4 sources)Histamine-1 Receptor AntagonistStart: 55-93-4464papf 1 tablet by mouth once dailycetirizine (ZyrTEC) 10 mg chewable tablet Chew 1 tablet (10 mg) once daily. Activeciprofloxacin 500 mg oral tablet (8 sources)Quinolone AntimicrobialStart: 38-12-0599ullxetulgltvl 500 mg Tab See Instructions, Start 3 days prior to procedure - twice a day for 7 days, # 14 tab(s), Refills(s) 0, Pharmacy: [facility], 172, cm, 06/23/24 15:02:00 EST, Height/Length Dosing, 111.5, kg, 06/23/24 15:02:00 EST, Weight Dosing Start Date: 07/29/24 Status: OrderedStart: 04-16-2024 End: 93-70-7259eybq 1 tablet by mouth every twelve hoursCipro 500 mg Tab 500 mg = 1 tab(s), Oral, q12hr, X 14 day(s), # 28 tab(s), Refills(s) 0, Pharmacy: [facility], 172, cm, 04/16/24 9:51:00 EST, Height/Length Dosing, 108.1, kg, 04/16/24 9:51:00 EST, Weight Dosing Start Date: 04/16/24 Stop Date: 04/30/24 Status: Ordereddapagliflozin 10 mg oral tablet (4 sources)Sodium-Glucose Cotransporter 2 InhibitorStart: 11-95-5508uoav 1 tablet by mouth once daily End: 01-26-0851kdzx 1 tablet by mouth every twenty-four hoursdapagliflozin propanediol (Farxiga) 10 mg tablet Take 1 tablet (10 mg) by mouth once every 24 hours. 10/24/2024 Discontinued (Reorder)diazePAM 10 mg oral tablet (1 source)BenzodiazepineStart: 32-37-9949Jcqlsc 10 mg Tab See Instructions, Take 1 hr prior to procedure, # 1 tab(s), Refills(s) 0, Pharmacy: [facility], 172, cm, 06/23/24 15:02:00 EST, Height/Length Dosing, 111.5, kg, 06/23/24 15:02:00 EST, Weight Dosing Start Date: 07/29/24 Status: Orderedempagliflozin 10 mg oral tablet (1 source)Sodium-Glucose Cotransporter 2 InhibitorStart: 10-24-2024 End: 46-70-8897sgzu 1 tablet by mouth once dailyempagliflozin (Jardiance) [...] mg/actuat metered dose nasal spray (20 sources)CorticosteroidStart: 19-07-2582Ywver: 97-38-0112ypkt 2 spray(s) nasal route once dailyfluticasone (Flonase) 50 MCG/ACT nasal spray Administer 2 sprays into each nostril Daily 07/25/2023ctiveFluticasone Propion-Salmeterol (8 sources)Corticosteroid, beta2-Adrenergic AgonistStart: 27-23-3603ffzq 1 puff(s) by inhalation twice dailyStart: 96-76-5755qsph 1 puff(s) by inhalation twice dailyFluticasone Propion-Salmeterol (Advair Hfa) 115-21 mcg/actuation HFA aerosol inhaler Active 2 PUFF INHALATION Twice daily October 17, 2024 12:00am Start: 22-23-8560zkvgwdhueqm-salmeterol HFA (ADVAIR) 115-21 mcg/actuation inhalerStart: 68-09-9044enhedzhyuih-salmeterol HFA (ADVAIR) 115-21 mcg/actuation inhalertake 2 puff(s) [...] morning and 2 puffs before bedtime. 0 Egmqit71 actuat fluticasone furoate 0.1 mg/actuat / umeclidinium 0.0625 mg/actuat / vilanterol 0.025 mg/actuat dry powder inhaler (16 sources)Anticholinergic, Corticosteroid, beta2-Adrenergic AgonistStart: 18-93-1606slpv 1 puff(s) by inhalation once gjtdtDfahheknwar-Rhzizgzqd-Mrldup (Trelegy Ellipta) 100-62.5-25 MCG/ACT aerosol powder Indications: Chronic obstructive pulmonary disease, unspecified COPD type ([facility]) Inhale 1 puff Daily 1 each 08/04/2024 ActiveStart: 98-35-0721phvf 1 puff(s) by inhalation once wtlqbJnqxkvljkmk-Qxvcirnnr-Ioinmh (Trelegy Ellipta) 100-62.5-25 MCG/ACT aerosol powder Inhale 1 puff 1 (one) time each day 07/25/2023 Activefurosemide 40 mg oral tablet (18 sources)Loop DiureticStart: 22-63-9216rpyq 1 tablet by mouth once daily Start: 01-23-2024 End: 01-47-8749bfqx 1 tablet by mouth once dailyfurosemide (Lasix) 40 MG tablet Indications: Essential hypertension ([facility]) Take 1 tablet (40 mg)by mouth Daily 90 tablet 2 01/23/2024 07/02/2024 Discontinued (Therapy completed) hydrocortisone 25 mg/ml topical cream (4 sources)CorticosteroidStart: 55-03-9739tkpvxjymkpmfso 2.5 % cream Indications: Erythema intertrigo Apply thin layer to affected areas on groin up once or twice daily prn itching. Hold if not itchy. 28 g 07/17/2024 Activeiv contrast (will be provided with radiology test) (4 sources)Start: 06-21-2022 End: 79-00-0237mdywvo 1 dose intravenously onceiv contrast (will be [...] Each 0 06/21/2022 06/22/2022 ActiveStart: 06-21-2022 End: 77-03-5503xs contrast (will be provided with radiology test) [...] (20 sources)Angiotensin 2 Receptor BlockerStart: 09-07-2022 End: 39-66-8198avpg 1 tablet by mouth once dailylosartan 50 mg Tab 50 mg = 1 tab(s), Oral, Daily Start Date: 04/16/24 Status: Ordered Repeat number: 1Start: 08-15-2021 End: 76-31-2317osvj 1 tablet by mouth twice dailylosartan (Cozaar) 25 mg tablet Take 1 tablet (25 mg) by mouth 2 times a day. 09/05/2021 10/18/2023 Discontinued (Dose adjustment)Start: 04-26-2018 End: 17-83-9912qtes 1 tablet by mouth once dailyLosartan 25 mg tablet Discontinued 25 MG PO Daily April 26, 2018 1:00am October 17, 2024 2:00am magnesium oxide 250 mg oral tablet (20 sources)take 1 tablet by mouth in the morningmagnesium oxide (Mag-Ox) 250 MG tablet Take 250 mg by mouth in the morning. Activemontelukast 10 mg oral tablet (5 sources)Leukotriene Receptor AntagonistStart: 13-07-3626ihmfkrydjau 10 mg Tab Refills(s) 0 Start Date: 12/02/24 Status: Ordered Repeat number: 1Start: 85-50-2665nyau 1 tablet by mouth once dailyMultivitamin preparation (6 sources)Start: 30-40-2636jdoh 1 tablet by mouth once dailyMultivitamin Active 1 TAB PO Daily July 28, 2019 12:00amStart: 78-56-9038fvyk 1 tablet by mouth once dailyMultivitamin Active 1 TAB PO Daily July 28, 2019 1:00amStart: 31-95-9107vpja 1 tablet by mouth once dailymultivitamin (MULTIPLE VITAMINS ORAL) 1 tablet once daily. 08/24/2006 ActiveStart: 42-17-8166zgzi 1 tablet by mouth once dailymultivitamin (MULTIPLE VITAMINS ORAL) 1 tablet once daily. 0 08/24/2006 Activenitroglycerin 0.4 mg sublingual tablet (20 sources)Nitrate VasodilatorStart: 05-15-2024 End: 67-86-8066wnikadkzfpmmn (Nitrostat) 0.4 mg SL tablet Indications: Coronary artery disease involving [place] coronary artery of [place] heart without angina pectoris Place 1 tablet (0.4 mg) under the tongue every5 minutes if needed for chest pain. May repeat dose every 5 minutes for up to 3 doses total. 25 tablet 11 05/15/2024 ActiveComment on above:Dissolve under the tongue.omega-3 fatty acids-fish oil (One-Per-Day [place]-3) 684-1,200 mg capsule (4 sources)omega-3 fatty acids-fish oil (One-Per-Day [place]-3) 684-1,200 mg capsule Take as directed Activeomega-3 fatty acids-fish oil (One-Per-Day [place]- 3) 684-1,200 mg capsule Take as directed 0 Activeomeprazole 20 mg delayed release oral capsule (20 sources)Proton Pump InhibitorStart: 10-57-3603ephx 1 capsule by mouth once dailyomeprazole 20 mg Cap-DR 20 mg = 1 cap(s), Oral, Daily Start Date: 04/16/24 Status: Ordered Repeat number: 1Start: 04-26-2018 End: 01-13-9866jjig 1 capsule by mouth once dailyStart: 77-76-7663rfdx 20 mg by mouth once dailyOmeprazole Active 20 MG PO Daily April 26, 2018 12:00am oxybutynin chloride 5 mg oral tablet (1 source)Cholinergic Muscarinic AntagonistStart: 34-44-7936xrfo 1 tablet by mouth twice dailyoxybutynin 5 mg Tab See Instructions, 1 tab(s) Oral bid after procedure, # 10 tab(s), Refills(s) 0,Pharmacy: [facility], 172, cm, 06/23/24 15:02:00 EST, Height/Length Dosing, 111.5, kg, 06/23/24 15:02:00 EST, Weight Dosing Start Date: 07/29/24 Status: Orderedphenylephrine hydrochloride 25 mg/ml ophthalmic solution (1 source)alpha-1 Adrenergic AgonistStart: 05-01-2022 End: 15-97-0865WJLDKUtlswoxr 2.5 % 1 Drop (AK-DILATE, ATIF-SYNEPHRINE) rosuvastatin 40 mg oral capsule (20 sources)HMG-CoA Reductase InhibitorStart: 18-67-5121jvnp 40 mg by mouth once dailyrosuvastatin 40 mg, Oral, Daily Start Date: 04/16/24 Status: Ordered Repeat number: 1Start: 10-18-2023 End: 02-01-5434srly 1 tablet by mouth in the morningrosuvastatin (Crestor) 40 MG tablet Take 40 mg by mouth in the morning. 10/18/2023 ActiveStart: 07-28-2019 End: 65-36-8504xlci 1 tablet by mouth once dailyRosuvastatin 20 mg tablet Discontinued 20 MG PO Daily July 28, 2019 1:00am October 17, 2024 2:00am sacubitril 24 mg / valsartan 26 mg oral tablet (4 sources)Angiotensin 2 Receptor BlockerStart: 50-71-6790zabi 1 tablet by mouth twice dailysildenafil 100 mg oral tablet (20 sources)Phosphodiesterase 5 InhibitorStart: 07-28-2019 End: 13-87-5815vxwymvafvw (Viagra) 100 MG tablet Indications: Benign prostatic hyperplasia without urinary obstruction Take 1 tablet (100 mg) by mouth if needed for erectile dysfunction 10 tablet 2 11/05/2023 Activespironolactone 25 mg oral tablet (6 sources)Aldosterone AntagonistStart: 84-59-9379wxpunktwiogszi 25 mg Tab 25 mg = 1 tab(s), Oral Start Date: 12/02/24 Status: Ordered Repeat number: 1Start: 10-24-2024 End: 70-62-0012ouwl 0.5 tablet by mouth once dailyspironolactone (Aldactone) 25 mg tablet Indications: Ischemic cardiomyopathy Take 0.5 tablets (12.5mg) by mouth once daily. 15 tablet 11 10/24/2024 10/24/2025 ActiveStart: 10-18-2024 End: 05-34-1974jwwm 1 tablet by mouth once dailyspironolactone (Aldactone) 25 mg tablet Take 1 tablet (25 mg) by mouth once daily. 10/24/2024 Discontinued (Dose adjustment)tamsulosin hydrochloride 0.4 mg oral capsule (20 sources)alpha-Adrenergic BlockerStart: 33-77-1870zdwp 1 capsule by mouth once dailytamsulosin (Flomax) 0.4 MG 24 hr capsule Indications: Benign prostatic hyperplasia without urinary obstruction Take 1 capsule (0.4 mg) by mouth Daily 90 capsule 3 03/24/2024 ActiveStart: 12-20-2023 End: 84-47-5861xvdv 1 capsule by mouth once dailytamsulosin (Flomax) 0.4 MG 24 hr capsule Indications: Benign prostatic hyperplasia without urinary obstruction Take 1 capsule (0.4 mg) by mouth Daily 90 capsule 3 12/20/2023 03/22/2024 Discontinued (Reorder)Start: 14-20-2307itda 2 capsules by mouth once daily tamsulosin (Flomax) 0.4 mg 24 hr capsule Take 2 capsules (0.8 mg) by mouth once daily. 06/28/2020 ActiveStart: 04-26-2018 End: 92-85-5333mjnk 2 capsules by mouth once dailytamsulosin 0.4 mg Cap 0.8 mg = 2 cap(s), Oral, Daily, X 30 day(s), # 60 cap(s), Refills(s) 11, Pharmacy: [facility], 172, cm, 04/16/24 9:51:00 EST, Height/Length Dosing, 108.1, kg, 249:51:00 EST, Weight Dosing Start Date: 04/16/24 Stop Date: 04/11/25 Status: Ordered Quantity: 60.0 Unit: cap(s) Repeat number: 12Start: 64-28-8353tpdy 0.4 mg by mouth once dailyTamsulosin Active 0.4 MG PO Daily April 26, 2018 12:00amtake 1 capsule by mouth every twenty-four hours in the morningtamsulosin (Flomax) 0.4 MG 24 hr capsule Take 0.4 mg by mouth in the morning. 0 Activetriamcinolone acetonide 1 mg/ml topical cream (20 sources)CorticosteroidStart: 07-02-2024 End: 17-41-1160hpattymmrkwgb (Kenalog) 0.1 % cream Indications: Rash Apply [...] mg/ml ophthalmic solution (1 source)AnticholinergicStart: 05-01-2022 End: 94-01-7943camhwcrvqsk 1 % 1 Drop (MYDRIACYL)valsartan 40 mg oral tablet (1 source)Angiotensin 2 Receptor BlockerStart: 75-78-1392psszogoer 40 mg Tab Refills(s) 0 Start Date: [...] oral tablet (9 sources)Macrolide AntimicrobialStart: 06-29-2024 End: 41-61-7011tfkscgbjdkxg (Zithromax) 250 MG tablet Take 250 mg by mouth See administration instructions 500 mg today, 250 mg x 4 days 06/29/2024 09/24/2024 Discontinued (Med list cleanup)Start: 16-11-4508bbsbdodpxqhg (Zithromax) 250 MG tablet Indications: Acute exacerbation of chronic obstructive pulmonary disease (CMS/HCC) Z-Pack. Take 2 tablets on day 1, and one tablet per day on days 2-5. 6 tablet0 06/30/2023 ActiveBudesonide-Formoterol (5 sources)Corticosteroid, beta2-Adrenergic AgonistStart: 07-28-2019 End: 12-25-8881vkef 1 puff(s) by inhalation every twelve hoursBudesonide- Formoterol 160-4.5 mcg/actuation Hfa Aerosol Inhaler Discontinued 2 PUFF INHALATION L76GHjypc2019 1:00am October 17, 2024 2:00amStart: 37-81-3562uyuj 1 puff(s) by inhalation every twelve hoursBudesonide-Formoterol Active 2 PUFF INHALATION Q12H July 28, 2019 12:00amcholecalciferol 0.025 mg oral tablet (20 sources)Vitamin DStart: 07-28-2019 End: 86-12-7331mzyx 1 tablet by mouth once dailyCholecalciferol (Vitamin D3) (Vitamin D3) 25 mcg (1,000 unit) Tablet Discontinued 1000 UNIT PO Daily July 28, 2019 1:00am October 17, 2024 2:00amtake 1 tablet by mouth in the morning cholecalciferol (Vitamin D-3) 50 MCG (1999 UT) tablet Take 50 mcg by mouth in the morning. Activedoxycycline hyclate 100 mg oral tablet (9 sources)Tetracycline-class DrugStart: 06-14-2023 End: 68-48-6129bnss 1 tablet by mouth twice dailyDoxycycline Hyclate 100 mg tablet Discontinued 100 MG PO Twice daily 03 01June 14, 2023 1:00amMa2024 2:00amStart: 47-10-6709sbuuevnuace hyclate (VIBRAMYCIN) 100 mg capsuleezetimibe 10 mg oral tablet (20 sources)Dietary Cholesterol Absorption InhibitorStart: 08-18-2019 End: 88-47-9924xwlp 1 tablet by mouth once dailyezetimibe (ZETIA) 10 mg tablet Take 1 tablet by mouth once daily. 0 08/18/2019 ActiveComment on above:Take 1 tablet by mouth once daily.hydroCHLOROthiazide 25 mg oral tablet (16 sources)Thiazide DiureticStart: 40-00-0779qvushEYECZXxefywnyj (HYDRODIURIL, ESIDRIX) 25 mg tablet Take by mouth q 24 HR. 0 10/11/2020 ActiveStart: 04-26-2018 End: 71-99-6718nqim 1 tablet by mouth once dailyHydrochlorothiazide 25 mg tablet Discontinued 25 MG PO Daily April 26, 2018 1:00am October 17, 2024 2:00am Comment on above:Take by mouth q 24 HR.ipratropium bromide 0.2 mg/ml inhalation solution (5 sources)AnticholinergicStart: 04-26-2018 End: 84-92-5880ordj 0.5 mg by inhalation every eight hoursIpratropium [place] 0.02 % solution Discontinued 0.5 MG INHALATION Q8H April 26, 2018 1:00am July 28, 2019 7:55amStart: 04-26-2018 End: 22-26-2818ntte 0.5 mg by inhalation every eight hoursIpratropium [place] Discontinued 0.5 MG INHALATION Q8H April 26, 2018 12:00am July 27 0 6:55amlevoFLOXacin 750 mg oral tablet (6 sources)Quinolone AntimicrobialStart: 04-26-2018 End: 02-85-0212xllb 1 tablet by mouth every twenty-four hoursLevofloxacin [...] DO ActiveMultivitamin Tablet (3 sources)Start: 07-28-2019 End: 35-43-6929rbew 1 tablet by mouth once dailyMultivitamin Tablet Discontinued 1 TAB PO Daily July 28, 2019 1:00am October 17, 2024 2:00amnystatin 100 unt/mg topical powder (5 sources)Polyene AntifungalStart: 07-17-2024 End: 25-56-1741rigsljre (Mycostatin) 610010 UNIT/GM powder Indications: Erythema intertrigo Apply to the affected area on groin area, once daily, 30 day supply 60 g 11 07/17/2024 09/24/2024 Discontinued (Med list cleanup)nystatin (Mycostatin) 100,000 unit/mL suspension 5 mL (500,000 Units) 4 times a day. ActiveOmega 3 CAPS (2 sources)[place] 3 CAPS TAKE DIRECTED. Quantity: 0 Refills: 0 Ordered: 05-Sep-2021 DO ActivepredniSONE 10 mg oral tablet (20 sources)Start: 10-17-2024 End: 71-14-0466Ayjampxnfm 10 mg tablet Discontinued MG October 17, 2024 12:00am October 17, 2024 2:01amStart: 06-29-2024 End: 26-98-2621muqm 1 tablet by mouth once dailypredniSONE (Deltasone) [...] days24 tablet 0 06/30/2023 ActiveStart: 06-14-2023 End: 12-79-5738edak 2 tablets by mouth once dailyPrednisone 20 mg tablet Discontinued 40 MG PO Daily 10 June 14, 2023 1:00am October 17, 2024 2:00am Start: 15-14-6942qzlm 40 mg by mouth once dailyPrednisone Active 40 MG PO Daily 10 June 14, 2023 12:00amStart: 04-26-2018 End: 17-39-8897nadv 2 tablets by mouth once dailyPrednisone 20 mg tablet Discontinued 40 MG PO Daily 10 April 26, 2018 1:00am April 30, 2018 1:00am May 01, 2018 1:01amStart: 04-26-2018 End: 98-45-6316gbli 40 mg by mouth once dailyPrednisone Discontinued 40 MG PO Daily 10 April 26, 2018 12:00am May 01, 2018 12:01amStart: 09-19-2017 End: 17-20-4504rfsc 3 tablets by mouth once daily at mealtimePrednisone 20 mg tablet Discontinued 60 MG PO Daily 15 5 September 19, 2017 12:00am July 28, 2019 7:55am administer with food or milkStart: 09-19-2017 End: 25-85-4487kann 60 mg by mouth once daily at mealtimePrednisone Discontinued 60 MG PO Daily 15 September 18, 2017 11:00pm July 28, 2019 6:55am administer with food or milkvalACYclovir 1000 mg oral tablet (5 sources)Herpesvirus Nucleoside Analog DNA Polymerase Inhibitor, Herpes Simplex Virus Nucleoside Analog DNA Polymerase Inhibitor, Herpes Zoster Virus Nucleoside Analog DNA Polymerase InhibitorStart: 71-41-3443pjqv 1 tablet by mouth three times dailyvalACYclovir (VALTREX) 1 gram TAKE 1 TABLET BY MOUTH THREE TIMES A DAY FOR 7 DAYS 0 02/01/2022 ActiveComment on above:TAKE 1 TABLET BY MOUTH THREE TIMES A DAY FOR 7 DAYSvitamin b12 1 mg oral capsule (5 sources)Vitamin Q67Lnhvc: 07-28-2019 End: 68-36-5062ybhj 1 capsule by mouth once dailyCyanocobalamin (Vitamin B-12) 1,000 mcg Capsule Discontinued 1000 MCG PO Daily July 28, 2019 1:00am October 17, 2024 2:00amvitamin e 180 mg oral capsule (20 sources)Start: 09-04-2016 End: 46-62-9925nkju 1 capsule by mouth once dailyVitamin E [...] sources)Patient encounter status; Translations: [Other specified counseling] 62-14-9869SmphdvaqQfxvcz (20 sources)Asthma; Translations: [Unspecified asthma, uncomplicated]Onset: 963841-39-8038XhvhiiyHkninmvpv and vision defects (1 source)Bilateral hyperopia of eyes; Translations: [Hypermetropia, bilateral] EpisodicChronic obstructive pulmonary disease and bronchiectasis (20 sources)Acute exacerbation of chronic asthmatic bronchitis; Translations: [Chronic obstructive pulmonary disease with (acute) exacerbation]Onset: 202948-36-2855LtmnnecEatgsyzxcf heart failure; nonhypertensive (20 sources)Congestive heart failure; Translations: [Heart failure, unspecified] Onset: 412672-87-1902VsprtevGameclpz atherosclerosis and other heart disease (20 sources)Coronary arteriosclerosis; Translations: [Coronary atherosclerosis of unspecified type of vessel, [place] or graft]Onset: ChronicCoronary atherosclerosis and other heart disease (5 sources)Presence of coronary angioplasty implant and graft; Translations: [Percutaneous transluminal coronary angioplasty status]Onset: 02-13-2023 62-52-7877VvjuluhlQtlygclft of lipid metabolism (20 sources)Hyperlipidemia; Translations: [Other and unspecified hyperlipidemia] Onset: 791094-30-9624OxtkipvGqvkodbzlp disorders (20 sources)Gastroesophageal reflux disease; Translations: [Esophageal reflux] Onset: 410384-40-2132QwjayxzHwatqocsf hypertension (20 sources)Essential hypertension; Translations: [Unspecified essential hypertension]Onset: 464023-67-1880TxxlcmfWfxuv and electrolyte disorders (2 sources)Hyponatremia; Translations: [Hypo-osmolality and hyponatremia] 46-36-0961KscksqriTbkeryeipdpql symptoms and ill-defined conditions (8 sources)Retention of urine; Translations: [Retention of urine, unspecified] Onset: 69-78-6827IckzyetwPgvrnufodnr of prostate (20 sources)Benign prostatic hypertrophy without outflow obstruction; Translations: [Benign prostatic hyperplasia without lower urinary tract symptoms]Onset: 231189-92-4263YtkknmkCbaynlwtadkm conditions of male genital organs (6 sources)Chronic prostatitis; Translations: [Chronic prostatitis]Onset: 74-83-2239JhyinweDizhepr and fatigue (5 sources)Asthenia; Translations: [Weakness]93-98-7399RhtqmworWvwka diseases of kidney and ureters (1 source)Urinary tract obstruction; Translations: [Other obstructive and reflux uropathy]Onset: 66-55-4315DqlszoryOgxux endocrine disorders (20 sources)Testicular hypofunction; Translations: [Testicular hypofunction] Onset: 281823-70-8879TlbjtqqZqppx eye disorders (1 source)Tear film insufficiency; Translations: [Dry eye syndrome of bilateral lacrimal glands]EpisodicOther eye disorders (1 source)Paralytic strabismus; 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] EpisodicOther inflammatory condition of skin (2 sources)Intertrigo; Translations: [Erythema intertrigo]62-51-1074Kveqivdl Other nervous system disorders (1 source)Segmental autonomic dysfunction; 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Other nervous system disorders (1 source)Myokymia of eyelid; Translations: [Facial myokymia]EpisodicOther nervous system disorders (3 sources)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; Translations: [Clonic hemifacial spasm, right]EpisodicOther nutritional; endocrine; and metabolic disorders (14 sources)Obesity; Translations: [Obesity, unspecified]Onset: 02-13-2023 42-76-6814BnetpqeJiuik nutritional; endocrine; and metabolic disorders (2 sources)Morbid obesity; Translations: [Morbid (severe) obesity due to excess calories]Onset: 453427-13-0798BcusfnaXrlyr nutritional; endocrine; and metabolic disorders (6 sources)Body mass index 30+ - obesity; Translations: [Body mass index (BMI) 36.0-36.9, adult]Onset: 544226-86-1828LqovcscWsxdx nutritional; endocrine; and metabolic disorders (1 source)Obese class II; Translations: [Class 2 obesity]72-97-4702QlodsenNircm nutritional; endocrine; and metabolic disorders (2 sources)Obesity caused by energy imbalance; Translations: [Morbid (severe) obesity due to excess calories]36-39-3235EbsobnpAfrbc nutritional; endocrine; and metabolic disorders (2 sources)Body mass index (BMI) 33.0-33.9, adult; Translations: [Body mass index (BMI) 33.0-33.9, adult]Onset: 74-26-9550NvjptsuIselc nutritional; endocrine; and metabolic disorders (2 sources)Body mass index (BMI) 36.0-36.9, adult; Translations: [Body mass index (BMI) 36.0-36.9, adult]Onset: 53-39-6661OmuappaEqvri skin disorders (4 sources)Skin lesion; Translations: [Disorder of the skin and subcutaneous tissue, unspecified]43-48-9125NhbjhvwoKgtgv skin disorders (2 sources)Eruption; Translations: [Rash and other nonspecific skin eruption] 73-05-0640TrwqtzffTvwkx skin disorders (2 sources)Sebaceous cyst of skin; Translations: [Sebaceous cyst]07-02-2024 EpisodicOther skin disorders (2 sources)Epidermoid cyst; Translations: [Epidermal cyst]12-53-8001Sqypuziw Other upper respiratory disease (2 sources)Nasal sinus problem; Translations: [Other specified disorders of nose and nasal sinuses]95-95-7455BuwrmqaiEeorc upper respiratory infections (20 sources)Chronic sinusitis; Translations: [Chronic sinusitis, unspecified] Onset: 002020-97-0913KioqfvkEechsp media and related conditions (2 sources)Acute non-suppurative otitis media - serous; Translations: [Acute serous otitis media, right ear]19-80-0274LpjsutqpZhuqdgvql (except that caused by tuberculosis or sexually transmitted disease) (11 sources)Right middle zone pneumonia; Translations: [Pneumonia, unspecified organism]Onset: 904442-84-8333TpkuhyuwRewptszkhwm failure; insufficiency; arrest (adult) (7 sources)Acute respiratory failure; Translations: [Acute respiratory failure with hypoxia]Onset: 275760-51-2928FwqpphhkVfhmqbxtep (except in labor) (2 sources)Sepsis; Translations: [Sepsis, unspecified organism]02-22-2024 EpisodicUnclassified (3 sources)A [facility] screening has identified you as FRAIL [...] Four Ways to Beat the Frailty Risk [email or web address]-dla-mackiuwovo/qiza-zwglme-lqvf- dqpt-lm-cyji-the-fra hspz-brgo63-80orle68-29-1238Dvshtykxusup (2 sources)Follow-up with CardiologyUnclassified (1 source)Call office on Sunday to schedule follow-up with your Primary Care Provider within 3-5 days of discharge. Past or Other Problems Problem ClassificationProblemDateDocumented DateEpisodic/ChronicDiabetes mellitus without complication (20 sources)Prediabetes; Translations: [Prediabetes]Onset: 257146-30-2251 EpisodicMood disorders (18 sources)Mood disordersOnset: Other nervous system disorders (1 source)Clonic hemifacial spasm, right; Translations: [Clonic hemifacial spasm, right]Onset: 41-95-2453NrvljszsQcvtl screening for suspected conditions (not mental disorders or infectious disease) (20 sources)History of adenomatous polyp of colon; Translations: [Encounter for screening for malignant neoplasm of colon]Onset: 356433-69-8135Htughuan Other upper respiratory disease (20 sources)Polyp of nasal sinus; Translations: [Other polyp of sinus]Onset: 363877-35-6497LoggssfuXuapigrju and history of mental health and substance abuse codes (20 sources)Ex-smoker; Translations: [Personal history of tobacco use]Onset: 947858-91-3893UmhrkaptZijscsr on above:QUIT IN 1984;Unclassified (20 sources)Onset: 03-23-2023 Resolved: 308484-14-0780Zvmikpzcbcug (2 sources)Sebaceous cyst of xkzz03-39-9690Ommpb infection (20 sources)Disease caused by 2019-nCoV; Translations: [COVID-19]Onset: 094417-63-2448Xymngtpr Results Test NameValueInterpretationReference RangeFacilityOffice Visiton 03-16-2025 Follow-up [id number] Demarcus Calderon 1955 [facility] Provider Department Center 03/16/2025 CONRAD PATEL Family History Family Status - Relation Status Age at Mother Father Level of Service:82932 [place] OFFICE/OUTPATIENT ESTABLISHED MOD [facility] 10-93-5323Qvszex-up visit [id number] Demarcus Calderon 1955 M Date Provider Department Center 12/09/2024 CONRAD PATEL Family History Family Status - Relation Status Age at Mother Father Level of Service:06306 SC OFFICE/OUTPATIENT NEW MODERATE MDM 43 [facility] Summaryon 12-02-2024 Ambulatory Visit SummaryAmbulatory [...] AM EST With: Where: [facility] [address] [place] [address]- Sunday2025 9:45 AM EST With: John BAPTISTE MD Where: [facility] [address] [place] [address]- You Need to Schedule the Following Appointments Follow Up with John BAPTISTE MD, URL When: Comments: 6 mos w/ PSA and PVR Where: [address] [address]- You Need to Complete the [...] congestive heart failure Coronary artery disease involving [place] heart with angina pectoris Elevated PSA GERD [...] Difficulty starting urine flow. (more content not included)...[facility] Office/Clinic Noteon 93-55-3647Oetuxbf Office/Clinic Note Urology Office/Clinic Note Chief Complaint [...] Information BENNY SHELLEY, John Hauser, URL [address] [place] [address]- Additional Instructions: 6 mos w/ PSA and PVR Patient Education Benign Prostatic Hyperplasia Medina Munoz, personally scribed for Dr. Baptiste on 12/02/2024 08:25:31. . Documentation recorded by the Medina bundy acurately reflects the services(s) I performed anddecisions made by me. Authenticated by Dr. Baptiste on 12/02/2024 08:26:24. Portions of this record may have been created with voice recognition artificial intelligence software, specifically [employer], [employer] and or [employer]. Substitutions may have occurred due to the inherent limitations of voice recognition and artificial intelligence software. 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 Chronic prostatitis Chronic systolic congestive heart failure Coronary artery disease involving [place] heart with angina pectoris Elevated PSA GERD [...] Father. Hypertension: Father. Im (more content not included)...[facility] HospitalComment on above:Result Comment: Electronically Signed By: John BAPTISTE MD\.br\Date and Time Signed: 12/02/24 08:27 EDT\.br\Electronically Co-Signed By: Medina Farley\.br\Date and Time Co-Signed: 12/02/24 08:25 EDTECH echo transthoracicon 06-83-0651YVB echo transthoracicKETTERING HEALTH [place] [address] Echocardiogram Signed Patient: Demarcus Calderon MR#: [id number] 652 : 1955 Acct:[id number] Age/Sex: 69 / M ADM Date: 11/21/24 Loc: Room: Type: [facility] Attending Dr: Kiya Richmond APRN Ordering [...] 0756 Signed By: Alex Gaston MD 11/21/24 1535[facility] Physician GroupBasic Metabolic Panelon 28-97-6540KGF/1.73 sq M.predicted MDRD (S/P/Bld) [Vol rate/Area]mL/min/{1.73_m2}NormalThe [facility]ician Group Comment on above:Performed By: #### BMP #### [place] [address] USACalcium [Mass/volume] in Serum or PlasmaOrdered By: Kiya Richmond on 26-66-1678Hngyswf [Mass/Vol]Calcium [Mass/volume] in Serum or Plasma 8.6-10.3FClermont County HospitalCalcium [Mass/Vol]8.6 mg/dLNormal 8.6-10.3FClermont County HospitalComment on above:Result Comment: PERFORMED BY: [place] [id number] PATHOLOGIST JOINTER MACHINE OPERATOR ERASMO SADLER M.D.Performed By: #### BMP #### [place] [id number] USACarbon dioxide, total [Moles/volume] in Serum or Plasma Ordered By: Kiya Richmond on 28-74-5516CO9 [Moles/Vol]Carbon dioxide, total [Moles/volume] in Serum or Ubxgox53.0-31.0[facility] HospitalCO2 [Moles/Vol]25.4 mmol/JGgmkmk40.0-31.0[facility] HospitalComment on above:Performed By: #### BMP #### [place] [id number] USAChloride [Moles/volume] in Serum or PlasmaOrdered By: Kiya Richmond on 01-11-1517Jlcaxrhr [Moles/Vol]Chloride [Moles/volume] in Serum or Tdyqoi13-860FxkwziwndElyria Memorial HospitalChloride [Moles/Vol]100 mmol/L Dimqfv15-327Ifjnouswd[address] [place], [place] [address]Comment on above:Performed By: #### BMP #### [place] [id number] USACreatinine [Mass/volume] in Serum or PlasmaOrdered By: Kiya Richmond on 26-13-4854Trbwkludeo [Mass/Vol]Creatinine [Mass/volume] in Serum or Plasma0.70-1.30[facility] HospitalCreatinine [Mass/Vol]0.97 mg/dLNormal0.70-1.30[facility] HospitalComment on above:Performed By: #### BMP #### [facility] [address] [place], [place] [id number] USAGlucose [Mass/volume] in Serum or PlasmaOrdered By: Kiya Richmond on 47-19-8974Nbbkelv [Mass/Vol]Glucose [Mass/volume] in Serum or Plasma Dbsm85-565ZhgzpchbjElyria Memorial HospitalComment on above:ADA recommended reference rangeRandom Glucose Reference Range is dependent on time and content of last meal. Glucose of more than 200 mg/dL in a nonstressed, ambulatory subject supports the diagnosisof Diabetes Mellitus.Glucose [Mass/Vol]115 mg/dL Sgog68-099ScswrtwocElyria Memorial HospitalComment on above:ADA recommended reference rangeRandom Glucose [...] recommended reference rangePerformed By: #### BMP #### [facility] [address] [place] [address] USANo Panel InformationOrdered By: Kiya Richmond on 10-31-2024 Estimated GFR (CKD-EPI)> 60.0 mL/MinElyria Memorial HospitalPharmacy Creatinine Clearance (ChemN/[facility] HospitalPotassium [Moles/volume] in Serum or PlasmaOrdered By: Kiya Richmond on 85-33-8680Gqijksgog [Moles/Vol]Potassium [Moles/volume] in Serum or Plasma3.5-5.1FClermont County HospitalPotassium [Moles/Vol]4.0 mmol/LNormal3.5-5.1FClermont County HospitalComment on above:Performed By: #### BMP #### [facility] [address] [place] [id number] USASerum or plasma anion gap determinationOrdered By: Kiya Richmond on 30-17-2064Unlth gap [Moles/Vol]Serum or plasma anion gap determination 6.0-15.0[facility] HospitalAnion gap [Moles/Vol]12.6 mmol/LNormal 6.0-15.0[facility] HospitalComment on above:Performed By: #### BMP #### [facility] [address] [place] [id number] USASodium [Moles/volume] in Serum or PlasmaOrdered By: Kiya Richmond on 14-34-1249Jpmeif [Moles/Vol]Sodium [Moles/volume] in Serum or PlasmaLow 136-145[facility] Shelby Hospitalodium [Moles/Vol]134 mmol/ZJvf522-030 [facility] HospitalComment on above:Performed By: #### BMP #### [facility] [address] [place] [id number] USAUrea nitrogen [Mass/volume] in Serum or PlasmaOrdered By: Kiya Richmond on 33-68-3927Srqt nitrogen [Mass/Vol]Urea nitrogen [Mass/volume] in Serum or Plasma12-19[facility] HospitalUrea nitrogen [Mass/Vol]16 mg/dLNormal12-19[facility] HospitalComment on above:Performed By: #### BMP #### [facility] [address] [place] [address] USABasic Metabolic Panelon 54-25-5180Amlecxofag Clr Calc Altfoqyq27.55NoCarolinaEast Medical Center Physician [facility] Daughters Medical CenterComment on above:Performed By: #### MGBHAKTI, BMP #### [facility] [address] [place] [address] USAGFR/1.73 sq M.predicted MDRD (S/P/Bld) [Vol rate/Area] mL/min/{1.73_m2}NormalThe [facility] Physician [facility]aughters Medical CenterComment on above:Performed By: #### MGBHAKTI, BMP #### [facility] [address] [place] [address] USACalcium [Mass/volume] in Serum or PlasmaOrdered By: Vincenzo Caraballo on 93-96-9365Sodcmdn [Mass/Vol]Calcium [Mass/volume] in Serum or Plasma Low8.6-10.3FClermont County HospitalCalcium [Mass/Vol]8.4 mg/dLLow 8.6-10.3FClermont County HospitalComment on above:Performed By: #### MG CBCNO, BMP #### [facility] [address] [place] [id number] USACarbon dioxide, total [Moles/volume] in Serum or Plasma Ordered By: Vincenzo Caraballo on 00-63-1398XZ8 [Moles/Vol]Carbon dioxide, total [Moles/volume] in Serum or Iukswy55.0-31.0[facility] HospitalCO2 [Moles/Vol]22.4 mmol/WIwgwxp54.0-31.0[facility] HospitalComment on above:Performed By: #### BHAKTI KRISHNA BMP #### [facility] [address] [place] [address] USAChloride [Moles/volume] in Serum or PlasmaOrdered By: Vincenzo Caraballo on 79-85-7704Msyzijzq [Moles/Vol]Chloride [Moles/volume] in Serum or Yuwlwl99-796LscvxmbyrElyria Memorial HospitalChloride [Moles/Vol]98 mmol/L Sgfcty76-598Rocboifqh[address] [place], [place] [address]Comment on above:Performed By: #### BHAKTI KRISHNA, GIOVANNA #### [facility] [address] [place] [address] USACreatinine [Mass/volume] in Serum or PlasmaOrdered By: Vincenzo Caraballo on 52-01-9811Hmiqbgqzeu [Mass/Vol]Creatinine [Mass/volume] in Serum or Plasma0.70-1.30[facility] HospitalCreatinine [Mass/Vol]0.76 mg/dLNormal0.70-1.30[facility] HospitalComment on above:Performed By: #### BHAKTI KRISHNA, BMP #### [facility] [address] [place] [address] USAErythrocyte distribution width Auto (RBC) [Ratio]Ordered By: Vincenzo Caraballo on 91-75-1903Jbordgkhgfx distribution width (RBC) [Ratio] Erythrocyte distribution width [Ratio] by Automated vnlkhMrzx79.0-14.8[facility] HospitalErythrocyte distribution width [Ratio] by Automated count Ordered By: Vincenzo Caraballo on 33-47-5781Xfqeoywuqpb distribution width (RBC) [Ratio]15.8 %High12.0-14.8[facility] HospitalComment on above: Performed By: #### BHAKTI KRISHNA, BMP #### [facility] [address] [place] [address] USAErythrocytes [#/volume] in Blood by Automated countOrdered By: Vincenzo Caraballo on 90-86-1406BGD (Bld) [#/Vol]5.20 10*6/uLNormal3.90-5.60 [facility] HospitalComment on above:Performed By: #### BHAKTI KRISHNA BMP #### [facility] [address] [place] [address] USAGlucose [Mass/volume] in Serum or PlasmaOrdered By: Vincenzo Caraballo on 01-93-7069Wibjbia [Mass/Vol]Glucose [Mass/volume] in Serum or Plasma [address] StreetComment on above:ADA recommended reference rangeRandom Glucose Reference Range is dependent on time and content of last meal. Glucose of more than 200 mg/dL in a nonstressed, ambulatory subject supports the diagnosisof Diabetes Mellitus.Glucose [Mass/Vol]124 mg/dL [address] StreetComment on above:ADA recommended reference rangeRandom Glucose [...] rangePerformed By: #### BHAKTI KRISHNA BMP #### [place] [id number] USAHematocrit Auto (Bld) [Volume fraction]Ordered By: Vincenzo Caraballo on 66-62-9134Qqpjhiqejq (Bld) [Volume fraction]Hematocrit [Volume Fraction] of Blood by Automated count38.8-50.0[facility] Hematocrit [Volume Fraction] of Blood by Automated countOrdered By: Vincenzo Caraballo on 59-22-6735Vqfgkbmbru (Bld) [Volume fraction]43.5 %Pqknzc50.8-50.0[facility] HospitalComment on above:Performed By: #### BHAKTI KRISHNA BMP #### [facility] [address] [place] [id number] USAHemoglobin [Mass/volume] in BloodOrdered By: Vincenzo Caraballo on 67-56-6515Obrxemhkvj (Bld) [Mass/Vol]Hemoglobin [Mass/volume] in Blood 13.0-17.0[facility] HospitalHemoglobin (Bld) [Mass/Vol]14.9 g/dL Zlxpnm38.0-17.0[facility] HospitalComment on above:Performed By: #### MG, CBCNO, BMP #### [facility] [address] [place] [address] USAHemogram CBC Without Diffon 95-01-0530Xqeo Corpuscular HGB Conc34.2 g/lYZwnxap71.5-35.6The [facility] Physician GroupComment on above: Performed By: #### MG, CBCNO, BMP #### [facility] [address] [place] [address] USAWBC (Bld) [#/Vol]11.5 10*3/uLHigh4.1-10.5The [facility] Physician GroupComment on above:Performed By: #### MG, CBCNO, BMP #### [facility] [address] [place] [address] USALeukocytes [#/volume] corrected for nucleated erythrocytes in Blood by Automated counOrdered By: Vincenzo Caraballo on 36-16-6002UPD corrected for nucl RBC Auto (Bld) [#/Vol]Leukocytes [#/volume] corrected for nucleated erythrocytes in Blood by Automated counHigh4.1-10.5FClermont County HospitalWBC corrected for nucl RBC Auto (Bld) [#/Vol]11.5 10*3/uLHigh4.1-10.5 [facility] Auto (RBC) [Entitic mass]Ordered By: Vincenzo Caraballo on 45-10-4135LFR (RBC) [Entitic mass]MCH [Entitic mass] by Automated count27.5-35.2FKindred Hospital Lima [Entitic mass] by Automated countOrdered By: Vincenzo Caraballo on 49-25-9397HMF (RBC) [Entitic mass]28.7 pgNormal 27.5-35.2FClermont County HospitalComment on above:Performed By: #### MG, CBCNO, BMP #### [facility] [address] [place] [id number] USAHC Auto (RBC) [Mass/Vol]Ordered By: Vincenzo Caraballo on 30-62-4871AAIP (RBC) [Mass/Vol]MCHC [Mass/volume] by Automated count32.5-35.6 [facility] HospitalHC (RBC) [Mass/Vol]34.2 g/dL32.5-35.6 [facility] HospitalMCV Auto (RBC) [Entitic vol]Ordered By: Vincenzo Caraballo on 49-29-5258JMJ (RBC) [Entitic vol]MCV [Entitic volume] by Automated count83.5-101[facility] HospitalMCV [Entitic volume] by Automated countOrdered By: Vincenzo Caraballo on 52-87-1686QMN (RBC) [Entitic vol]83.8 fLNormal 83.5-[address] [place], [place] [address]Comment on above:Performed By: #### MG, CBCNO, BMP #### [facility] [address] [place] [id number] USAMagnesium [Mass/volume] in Serum or PlasmaOrdered By: Vincenzo Caraballo on 05-58-9638Orucwegxv [Mass/Vol]Magnesium [Mass/volume] in Serum or Plasma1.9-2.7FClermont County HospitalMagnesium [Mass/Vol]2.3 mg/dL Normal1.9-2.7FClermont County HospitalComment on above:Result Comment: PERFORMED BY: [address] [place] [address] PATHOLOGIST JOINTER MACHINE OPERATOR ERASMO SADLER M.D.Performed By: #### MG, CBCNO, BMP #### [facility] [address] [place] [address] USANo Panel InformationOrdered By: Vincenzo Caraballo on 10-18-2024 Estimated GFR (CKD-EPI)> 60.0 mL/MinElyria Memorial HospitalPharmacy Creatinine Clearance (Chem96.55[facility] HospitalPlatelet mean volume Auto (Bld) [Entitic vol]Ordered By: Vincenzo Caraballo on 54-50-7322Zewwswfy mean volume (Bld) [Entitic vol]Platelet mean volume [Entitic volume] in Blood by Automated count6.6-10.1FClermont County HospitalPlatelet mean volume [Entitic volume] in Blood by Automated countOrdered By: Vincenzo Caraballo on 66-65-2213Yvpffwzw mean volume (Bld) [Entitic vol]8.0 fLNormal6.6-10.1FClermont County HospitalComment on above:Result Comment: PERFORMED BY: [place] [address] PATHOLOGIST JOINTER MACHINE OPERATOR ERASMO SADLER M.D.Performed By: #### BHAKTI KRISHNA BMP #### [place] [address] USAPlatelets Auto (Bld) [#/Vol]Ordered By: Vincenzo Caraballo on 46-93-5119Vmvyivalg (Bld) [#/Vol]Platelets [#/volume] in Blood by Automated yhvzn125-124Qyexecrpo[address] [place], [place] [address]Platelets [#/volume] in Blood by Automated countOrdered By: Vincenzo Caraballo on 60-65-9026Epzpfftlr (Bld) [#/Vol]194 10*3/aCLqsxrr543-104UcefjtmcyElyria Memorial HospitalComment on above:Performed By: #### BHAKTI KRISHNA, BMP #### [facility] [address] [place] [address] USAPotassium [Moles/volume] in Serum or PlasmaOrdered By: Vincenzo Caraballo on 09-89-1359Qfolfephg [Moles/Vol]Potassium [Moles/volume] in Serum or Plasma3.5-5.1FClermont County HospitalPotassium [Moles/Vol]4.0 mmol/LNormal3.5-5.1FClermont County HospitalComment on above:Performed By: #### BHAKTI KRISHNA, BMP #### [facility] [address] [place] [address] USARBC Auto (Bld) [#/Vol]Ordered By: Vincenzo Caraballo on 50-26-5182MFG (Bld) [#/Vol]Erythrocytes [#/volume] in Blood by Automated count 3.90-5.60OhioHealth Shelby Hospitalerum or plasma anion gap determinationOrdered By: Vincenzo Caraballo on 87-24-9730Bczea gap [Moles/Vol]Serum or plasma anion gap determination6.0-15.0[facility] Memorial HospitalAnion gap [Moles/Vol]12.6 mmol/LNormal6.0-15.0[facility] Memorial HospitalComment on above:Performed By: #### MG CBCNO, BMP #### [facility] [address] [place] [address] USASodium [Moles/volume] in Serum or PlasmaOrdered By: Vincenzo Caraballo on 62-81-9063Lkgabu [Moles/Vol]Sodium [Moles/volume] in Serum or Plasma Mgy620-793XmcuyhaevOhioHealth Shelby Hospitalodium [Moles/Vol]129 mmol/LLow 136-145[facility] Memorial HospitalComment on above:Performed By: #### MG CBCNO, BMP #### [facility] [address] [place] [id number] USAUrea nitrogen [Mass/volume] in Serum or PlasmaOrdered By: Vincenzo Caraballo on 20-67-8986Bnqd nitrogen [Mass/Vol]Urea nitrogen [Mass/volume] in Serum or Plasma7Elyria Memorial HospitalUrea nitrogen [Mass/Vol]20 mg/dLNormal7-[facility] Memorial HospitalComment on above:Performed By: #### MG CBCNO, BMP #### [facility] [address] [place] [address] USABasic Metabolic Panelon 48-40-4973Bgxwm gap [Moles/Vol] 13.3 mmol/LNormal6.0-15.0The [facility] Physician GroupComment on above:Performed By: #### BMP CBC, MG #### [facility] [address] [place] [address] USACalcium [Mass/Vol]8.8 mg/dLNormal8.6-10.3The [facility] Physician GroupComment on above:Performed By: #### BMP, CBC, MG #### [facility] [address] [place] [address] USAChloride [Moles/Vol]98 mmol/ATopqvs16-517Pbb [facility] Physician GroupComment on above:Performed By: #### BMP, CBC, MG #### [facility] [address] [place] [address] USACO2 [Moles/Vol]27.2 mmol/UKnmepu55.0-31.0The [facility] Physician GroupComment on above:Performed By: #### BMP, CBC, MG #### [facility] [address] [place] [address] USACreatinine [Mass/Vol]0.89 mg/dLNormal0.70-1.30The [facility] Physician GroupComment on above:Performed By: #### BMP, CBC, MG #### [facility] [address] [place] [address] USACreatinine Clr Calc Xfbuccmt79.13NormalThe [facility] Physician GroupComment on above:Performed By: #### BMP, CBC, MG #### [facility] [address] [place] [address] USAGFR/1.73 sq M.predicted MDRD (S/P/Bld) [Vol rate/Area] mL/min/{1.73_m2}NormalThe [facility] Physician GroupComment on above:Performed By: #### BMP, CBC, MG #### [place] [address] USAGlucose [Mass/Vol]131 mg/hMEtfm23-892Nqa [facility] Physician GroupComment on above:Result Comment: Random Glucose Reference Range is dependent on time and content of last meal. Glucose of more than 200 mg/dL in a nonstressed, ambulatory subject supports the diagnosis of Diabetes Mellitus. ADA recommended reference rangePerformed By: #### BMP, CBC, MG #### [facility] [address] [place] [address] USAPotassium [Moles/Vol]4.5 mmol/LNormal3.5-5.1The [facility] Physician GroupComment on above:Result Comment: Hemolysis is present at a level that could interfere with the result. Contact lab if redraw is requiredPerformed By: #### BMP, CBC, MG #### [facility] [address] [place] [address] USASodium [Moles/Vol]134 mmol/KOex669-995Pan [facility] Physician GroupComment on above:Performed By: #### BMP, CBC, MG #### [facility] [address] [place] [address] USAUrea nitrogen [Mass/Vol]22 mg/dLNormal7-25The [facility] Physician GroupComment on above:Performed By: #### BMP, CBC, MG #### [place] [address] USABasophils Auto (Bld) [#/Vol]Ordered By: Tootie Richmond on 22-89-6601Xbfxoqdvb (Bld) [#/Vol]Automated basophil count0.0-0.2FClermont County HospitalBasophils [#/volume] in Blood by Automated countOrdered By: Tootie Richmond on 37-16-4645Cslvoebvk (Bld) [#/Vol]0.0 10*3/uLNormal0.0-0.2 [facility] HospitalComment on above:Result Comment: PERFORMED BY: [place] [address] PATHOLOGIST JOINTER MACHINE OPERATOR FIORELLA BRIAN M.D.Performed By: #### BMP, CBC, MG #### [place] [address] USABasophils/100 WBC Auto (Bld)Ordered By: Tootie Richmond on 43-62-3329Kpsnriaea/100 WBC (Bld)Automated basophil %.[facility] Memorial HospitalBasophils/100 leukocytes in Blood by Automated countOrdered By: Tootie Richmond on 14-34-5093Ruquafqqz/100 WBC (Bld)0.2 %Normal.[facility] Memorial HospitalComment on above:Performed By: #### BMP, CBC, MG #### [place] [address] USACapillary blood glucose measurement by glucometer (mass/volume)Ordered By: Vincenzo Caraballo on 62-40-7574Bkkojhz [Mass/Vol]144 mg/dL NormalElyria Memorial HospitalComment on above:Random Glucose Reference Range is [...] Care testing ,Complete Blood Count Auto Diffon 21-31-0338Jnasvfqmozv distribution width (RBC) [Ratio]15.5 %High12.0-14.8The [facility] Physician GroupComment on above: Performed By: #### BMP, CBC, MG #### [place] [address] USAHematocrit (Bld) [Volume fraction]44.7 %Idcebr81.8-50.0The [facility] Physician GroupComment on above:Performed By: #### BMP, CBC, MG #### [facility] [address] [place] [address] USAHemoglobin (Bld) [Mass/Vol]15.2 g/eKGoqols42.0-17.0The [facility] Physician GroupComment on above:Performed By: #### BMP, CBC, MG #### [place] [id number] USAMCH (RBC) [Entitic mass]28.5 nzLmsese19.5-35.2The [facility] Physician GroupComment on above:Performed By: #### BMP, CBC, MG #### [facility] [address] [place] [id number] USAMCV (RBC) [Entitic vol]84.2 sIXirfji37.5-101The [facility] Physician GroupComment on above:Performed By: #### BMP, CBC, MG #### [facility] [address] [place] [address] USAMean Corpuscular HGB Conc33.9 g/jYBybuwz84.5-35.6The [facility] Physician GroupComment on above:Performed By: #### BMP, CBC, MG #### [facility] [address] [place] [address] USANRBC%0.1 /100{WBC}Normal0-0.5The [facility] Physician Group Comment on above:Performed By: #### BMP, CBC, MG #### [facility] [address] [place] [address] USAPlatelet mean volume (Bld) [Entitic vol]8.1 fLNormal 6.6-10.1The [facility] Physician GroupComment on above:Performed By: #### BMP, CBC, MG #### [place] [address] USAPlatelets (Bld) [#/Vol]211 10*3/hPNshfeh640-609Vbg [facility] Physician GroupComment on above:Performed By: #### BMP, CBC, MG #### [place] [address] USARBC (Bld) [#/Vol]5.31 10*6/uLNormal3.90-5.60The [facility] Physician GroupComment on above:Performed By: #### BMP, CBC, MG #### [place] [address] USAEosinophils Auto (Bld) [#/Vol]Ordered By: Tootie Richmond on 96-67-3704Jliephznsap (Bld) [#/Vol]Automated eosinophil count0.0-0.45[facility] Memorial HospitalEosinophils [#/volume] in Blood by Automated countOrdered By: oTotie Richmond on 99-26-1231Kdqlmljrcqx (Bld) [#/Vol]0.3 10*3/uLNormal0.0-0.45 [facility] HospitalComment on above:Performed By: #### BMP, CBC, MG #### [facility] [address] [place] [address] USAEosinophils/100 WBC Auto (Bld)Ordered By: Tootie Richmond on 82-64-5770Rzvfrfvddiv/100 WBC (Bld)Automated eosinophil %.[facility] HospitalEosinophils/100 leukocytes in Blood by Automated countOrdered By: Tootie Richmond on 64-79-9474Fcfvwgoldnb/100 WBC (Bld)1.8 %Normal.[facility] HospitalComment on above:Performed By: #### BMP, CBC, MG #### [facility] [address] [place] [address] USAGlucose Glucometer (BldC) [Mass/Vol]Ordered By: Vincenzo Caraballo on 09-51-3642Gkivfju [Mass/Vol]Capillary blood glucose measurement by glucometer (mass/volume)[facility] HospitalComment on above:Random Glucose Reference Range is dependent on time and content of last meal. Glucose of more than 200 mg/dL in a nonstressed, ambulatory subject supports the diagnosis of Diabetes Mellitus.Glucose Poct Glucometerson 65-80-4871Pbryrwb1 Glu2: Cleaned [facility] CenterNormCleveland Clinic Indian [facility] Hospital Physician GroupComment on above:Result Comment: PERFORMED BY: [facility] [address] [facility] [place] [address] PATHOLOGIST JOINTER MACHINE OPERATOR FIORELLA BRIAN M.D.Performed By: #### GLULS #### Point of Care testing ,Leukocytes [#/volume] in Blood by Automated countOrdered By: Tootie Richmond on 48-92-7002XSN (Bld) [#/Vol]14.6 10*3/uLHigh4.1-10.5FClermont County HospitalComment on above:Performed By: #### BMP, CBC, MG #### [facility] [address] [place] [address] USALymphocytes Auto (Bld) [#/Vol]Ordered By: Tootie Richmond on 84-80-8880Meqbetoumex (Bld) [#/Vol]Lymphocytes [#/volume] in Blood by Automated count1.00-4.8[facility] Memorial HospitalLymphocytes [#/volume] in Blood by Automated countOrdered By: Tootie Richmond on 31-31-2728Ebrvhhuwivj (Bld) [#/Vol] 2.4 10*3/uLNormal1.00-4.8[facility] HospitalComment on above: Performed By: #### BMP, CBC, MG #### [address] [address] USALymphocytes/100 WBC Auto (Bld)Ordered By: Tootie Richmond on 63-67-3800Gwlxolrtimq/100 WBC (Bld)Lymphocytes/100 leukocytes in Blood by Automated count.[facility] Memorial HospitalLymphocytes/100 leukocytes in Blood by Automated countOrdered By: Tootie Richmond on 19-11-5290Nhkjlrfxvzp/100 WBC (Bld)16.3 %Normal.[facility] HospitalComment on above:Performed By: #### BMP, CBC, MG #### [place] [address] USAMagnesiumon 37-39-8863Rcojnoqga [Mass/Vol]2.2 mg/dLNormal 1.9-2.7The [facility] Physician GroupComment on above:Result Comment: PERFORMED BY: [place] [address] PATHOLOGIST JOINTER MACHINE OPERATOR FIORELLA BRIAN M.D.Performed By: #### BMP, CBC, MG #### [place] [id number] USAMonocytes Auto (Bld) [#/Vol]Ordered By: Tootie Richmond on 94-20-5915Scdsqhdkd (Bld) [#/Vol]Automated blood monocyte countHigh0.0-0.8 [facility] HospitalMonocytes [#/volume] in Blood by Automated countOrdered By: Tootie Richmond on 86-78-9916Zecegpxcl (Bld) [#/Vol]1.1 10*3/uLHigh 0.0-0.8[facility] HospitalComment on above:Performed By: #### BMP, CBC, MG #### [address] [address] USAMonocytes/100 WBC Auto (Bld)Ordered By: Tootie Richmond on 09-95-2336Ixjkqbtur/100 WBC (Bld)Automated monocyte %.[facility] Memorial HospitalMonocytes/100 leukocytes in Blood by Automated countOrdered By: Tootie Richmond on 94-22-8942Ehewtbgxd/100 WBC (Bld)7.2 %Normal.[facility] HospitalComment on above:Performed By: #### BMP, CBC, MG #### [facility] [address] [place] [id number] USANeutrophils Auto (Bld) [#/Vol]Ordered By: Tootie Richmond on 54-23-6310Cmxpfulwlva (Bld) [#/Vol]Neutrophils [#/volume] in Blood by Automated countHigh1.8-7.7FClermont County HospitalNeutrophils [#/volume] in Blood by Automated countOrdered By: Tootie Richmond on 51-02-0141Sjiipxoukkg (Bld) [#/Vol]10.9 10*3/uLHigh1.8-7.7FClermont County HospitalComment on above: Performed By: #### BMP, CBC, MG #### [facility] [address] [place] [id number] USANeutrophils/100 WBC Auto (Bld)Ordered By: Tootie Richmond on 39-06-9792Vtvzsqrkyka/100 WBC (Bld)Automated neutrophil %.[facility] HospitalNeutrophils/100 leukocytes in Blood by Automated countOrdered By: Tootie Richmond on 58-62-0284Dkvtbfaahfx/100 WBC (Bld)74.5 %Normal.[facility] HospitalComment on above:Performed By: #### BMP, CBC, MG #### [facility] [address] [place] [id number] USANo Panel InformationOrdered By: Vincenzo Caraballo on 10-17-2024 Bedside Glucose CommentGlu2: cleaned [facility] Nucleated erythrocytes [Presence] in Blood by Automated countOrdered By: Tootie Richmond on 81-00-2361Zkhfhiocb RBC Auto Ql (Bld)Nucleated erythrocytes [Presence] in Blood by Automated count0-0.5FClermont County HospitalNucleated RBC Auto Ql (Bld)0.1 /100{WBC}0-0.5FClermont County HospitalTroponin I High Sensitivityon 80-56-2745Losdilhb I High Hzuggxhfqsz55Figqbb2-26Vey [facility] Physician GroupComment on above:Result Comment: The Troponin units of report have been changed to meet the Chest Pain Accreditation requirement, element EC5.M1l2. Troponin units are changed from pg/ml to ng/L. Also, the decimal is removed and results are in whole numbers. PERFORMED BY: [facility] [address] [place] [id number] PATHOLOGIST JOINTER MACHINE OPERATOR ERASMO SADLER M.D.Performed By: #### HS TROP #### [place] [address] USATroponin I.cardiac [Mass/volume] in Serum or Plasma by Detection limit <= 0.01 ng/Ordered By: Keila Davis on 45-54-2148Tosqucou I.cardiac DL <= 0.01 ng/mL [Mass/Vol]Troponin I.cardiac [Mass/volume] in Serum or Plasma by Detection limit <= 0.01 ng/0-[facility] HospitalComment on above:The Troponin units of report have been changed to meet the Chest Pain Accreditation requirement, element EC5.M1l2. Troponin units are changed from pg/ml to ng/L. Also, the decimal is removed and results are in whole numbers. Troponin I.cardiac [Mass/volume] in Serum or Plasma by Detection limit <= 0.01 ng/mLOrdered By: Keila Davis on 35-58-8607Lganfnwi I.cardiac DL <= 0.01 ng/mL [Mass/Vol]14 ng/L0-[facility] Memorial HospitalComment on above:The Troponin units of report have been changed to meet the Chest Pain Accreditation requirement, element EC5.M1l2. Troponin units are changed from pg/ml to ng/L. Also, the decimal is removed and results are in whole numbers.WBC Auto (Bld) [#/Vol]Ordered By: Tootie Richmond on 64-29-6229KFS (Bld) [#/Vol]Leukocytes [#/volume] in Blood by Automated countHigh4.1-10.5FClermont County HospitalX-ray reportOrdered By: Miguel Trejo on 59-29-9206Rvitc reportFIRREGENCY HOSPITAL TOLEDO Main [place] [address] [place] [address] XRay Report Signed Patient: Demarcus Calderon MR#: [id number] : 1955 Acct:[id number] Age/Sex: 69 / M ADM Date: 5 Loc: 4P Room: [address] [place] [address] Type: ADM IN Attending Dr: Vincenzo Caraballo [...] Trejo M.D. 10/17/2024 9:46 AM Dictation Location: [place] [address] Transcribed By: CHARITY 10/17/24945 Dictated By: Miguel Trejo MD 10/17/2445 Signed By: 10/17/24 0946 [facility] Work Phone: XR chest 2V*on 22-82-3827CZ chest 2V*[facility] Main [address] [address] XRay Report Signed Patient: Demarcus Calderon MR#: [id number] : 1955 Acct:[id number] Age/Sex: 69 / M ADM Date: 10/16/24 Loc: 4P Room: [address] [place] [address] Type: ADM IN Attending Dr: Vincenzo Caraballo [...] Trejo M.D. 10/17/2024 9:46 AM Dictation Location: [place] [address] Transcribed By: [facility] 10/17/24 0946 Dictated By: Miguel Trejo MD 10/17/24 0945 Signed By: 10/17/24 0946[facility] Physician GroupAmbulatory Visit Summaryon 70-10-8279Vhnxsugcfi Visit SummaryAmbulatory Visit Summary KVNG DEMARCUS Jose [...] John BAPTISTE MD Where: [facility] [address] [place] [address]- You Need to Schedule the Following Appointments Follow Up with BENNY SHELLEY, GUDELIA Paz When: Where: [address] [place] [phone]- Medications What How Much When Instructions Unchanged [...] congestive heart failure Coronary artery disease involving [place] heart with angina pectoris Elevated PSA GERD [...] growths. ??? An exam (more content not included)...[facility] HospitalU[facility] Office/Clinic Noteon 71-64-1267Wzrxcdt Office/Clinic NoteUrology Office/Clinic Note Chief Complaint F/u [...] MD, URL [address] [place] [phone]- Additional Instructions: 6-8 wks with PVR Patient Education Benign Prostatic Hyperplasia I, Dayanara Murrell, personally scribed for Dr. Baptiste on 08/26/2024 08:41:13. . Portions of this record may have been created with voice recognition artificial intelligence software, specifically [employer], [employer] and or [employer]. Substitutions may have occurred due to the inherent limitations of voice recognition and artificial intelligence software. 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 Chronic prostatitis Chronic systolic congestive heart failure Coronary artery disease involving [place] heart with angina pectoris Elevated PSA GERD [...] 05/28/2018 Recorded diphtheria/pertussis, acel/t (more content not included)...[facility] HospitalComment on above:Result Comment: Electronically Signed By: John BAPTISTE MD\.br\Date and Time Signed: 08/26/24 08:47 EDT\.br\Electronically Co-Signed By: Dayanara Murrell\.br\Date and Time Co-Signed: 08/26/24 08:41 EDT Ambulatory Visit Summaryon 72-46-3428Qsuveaccxx Visit SummaryAmbulatory Visit Summary DEMARCUS CALDERON :1955 [...] John BAPTISTE MD Where: [facility] [address] [place] [address]- You Need to Schedule the Following Appointments Follow Up with John BAPTISTE MD, URL When: Where: [address] [place] [address] AVE [address] [address]- Medications What How Much When [...] congestive heart failure Coronary artery disease involving [place] heart with angina pectoris Elevated PSA GERD [...] lumps or growths. ??? (more content not included)...[facility] HospitalUrology Office/Clinic Noteon 19-45-5352Jffsiso Office/Clinic NoteUrology Office/Clinic Note HPI Staff 69 [...] Information BENNY SHELLEY, John Hauser, URL [address] [address]- Additional Instructions: Follow up August 26 2024 [...] congestive heart failure Coronary artery disease involving [place] heart with angina pectoris Elevated PSA GERD [...] Status influenza virus vac (more content not included)...[facility] HospitalComment on above:Result Comment: Electronically Signed By: JOSEPH Peralta APRN, Yasemin Skelton\.br\Date and Time Signed: 08/18/24 16:08 EDT\.br\Electronically Co-Signed By: Shree Stallworth\.br\Date and Time Co-Signed: 08/18/24 15:06 EDT Ambulatory Visit Summaryon 83-16-7908Vizacyxfjt Visit SummaryAmbulatory Visit Summary DEMARCUS CALDERON :1955 Visit Date:08/15/2024 Ambulatory Visit Instructions Your Care Team Attending Physician - John BAPTISTE MD Primary Care Physician - Sera Flower PA-C Referring Physician - John BAPTISTE MD This Is Your Medications List acetaminophen-hydrocodone ([place] 325 mg-5 mg oral tablet) acetaminophen-tramadol (Ultracet [...] What How Much When Instructions Unchanged acetaminophen-hydrocodone ([place] 325 mg-5 mg oral tablet) See instructions [...] congestive heart failure Coronary artery disease involving [place] heart with angina pectoris Elevated PSA GERD without esophagitis Hypertension Ischemic cardiomyopathy Pure hypercholesterolemia Testicular hypofunction Urinary retention Patient Survey You may receive a survey via text or e-mail asking about your office visit. Please share your experience with us by completing your survey. We appreciate your feedback and thank you for choosing us for your care. [facility] HospitalInpatient Patient Summaryon 52-78-3441Udbtlgbmb Patient SummaryInpatient Patient Summary [address] [address] Clinical Summary Person Information Name: DEMARCUS CLADERON Age: 69 Years : 1955 Sex: Male PCP: Sera Flower PA-C Marital Status: Race: White Ethnicity: Non- or Language: Romanian Visit Id: Visit Reason: BPH WITH LUTS Speciality: Acuity: Enc Type: Outpatient Med Service: Surgery Arrival: 08/08/2024 12:42:16 Discharge: Dispo Type: Address: [address] [place] [phone] Provider Notes: Diagnosis: Other obstructive and reflux uropathy Problems Active BPH with obstruction/lower urinary tract symptoms Chronic prostatitis Urinary retention Elevated PSA Chronic systolic congestive heart failure Coronary artery disease involving [place] heart with angina pectoris Testicular hypofunction Pure [...] Documented This Visit Final Med List: acetaminophen-hydrocodone ([place] 325 mg-5 mg oral tablet) Take 1 [...] Follow up: With: Address: When: John BAPTISTE [address] [place] [address], [address], [place] [address] Business (1) Comments: Push the fluids to keep the urine clear. Stay on the Flomax for now. Some discharge instructions have been provided. If the bleeding gets severe, or the catheter is clogging from blood clots, you need to go to the ERfor irrigation. Will make a one week appt. to remove the catheter. Type Location Start Finish [facility] Urology CALL [facility] Urology Surgical Services 08/13/2024 12:00 PM 08/13/2024 12:30 PM Confirmed Patient Education Information: EU - Urolift Discharge Instructions (Custom)[facility] Main OR Intraoperative Recordon 74-50-9864Kccv OR Intraoperative RecordMain OR Intraoperative Record IntraOp Document Type FTURO Summary Primary Physician: John BAPTISTE MD Finalized Date/Time: 08/08/24 14:01:11 Pt. Name: DEMARCUS CALDERON/Sex: 1955 Male Med Rec #: [id number] Physician: John BAPTISTE MD Financial #: [id number] Pt. Type: O Room/Bed: / Admit/Disch: 08/08/24 [...] Dian Jackman Role Performed Surgeon - Primary Pattern Attendant - Primary Scrub - Primary Time [...] (If Medication Participants Demetrice CAMACHO, Leena Suresh) Jayem Cash Laura C Time Out Complete 08/08/24 [...] CARTRIDGE CARTRIDGE CARTRIDGE Serial Number Lot Number [id number] Space Technologist NEOTRACT NEOTRACT NEOTRACT Catalog ???# [id number] Size Expiration Date 08/19/25 08/19/25 01/22/26 Usage [...] equipment (including patient problems (more content not included)...[facility] HospitalMain OR Preoperative Recordon 88-80-7649Rqce OR Preoperative RecordMain OR Preoperative Record Holding Area Document Type FTURO Summary Primary Physician: John BAPTISTE MD Finalized Date/Time: 08/08/24 13:16:05 Pt. Name: KVNGDEMARCUS/Sex: 1955 Male Med Rec #: [id number] Physician: John BAPTISTE MD Financial #: [id number] Pt. Type: O Room/Bed: / Admit/Disch: 08/08/24 [...] No Pain Comment: N/A Skin Integrity Intact, [place], Warm, & Dry Vitals - EU Blood Pressure 146/74 Pulse 58 bpm Respirations 18 br/min SPO2 95 % Additional None Specimens Comment N/A Specimens Collected Residual Amount - 0 RN Reviewed Yes Post Void Last Modified By: Bonny Brenner 08/08/24 13:15:24 Finalized By: Bonny Brenner Document Signatures Signed By: Bonny Brenner 08/08/24 13:15 Bonny Brenner 08/08/24 13:16NoThe Surgical Hospital at SouthwoodsOperative Reporton [id number] ReportOperative Report Patient: DEMARCUS CALDERON Age: 69 years Sex: Male : 1955 Associated Diagnoses: None Author: John BAPTISTE MD Procedure Operative Information Details: Date/ Time: 08/08/2024 13:41:00. Pre-Op Dx: Acute urinary retention (JGV17-HX R33.8, Working, Medical), BPH with obstruction/lower urinary tract symptoms (DUX46-QX N40.1, Working, Medical). Post-Op Dx: Same. Anesthesia [...] procedure (10 mg diazepam, 5/325 mg of [place]), Local Anesthesia (60cc 2% Xylocaine liquid inserted [...] gets more persistent/severe. He agrees with the plan.[facility] HospitalComment on above:Result Comment: Electronically Signed By: John BAPTISTE MD\Date and Time Signed: 08/08/24 13:51 EDTOutpatient Surgery Discharge Instructionon 36-98-0664Yskzdujyzv Surgery Discharge InstructionOutpatient Surgery Discharge Instruction [address] [address] Patient Discharge Instructions PERSON INFORMATION [...] Follow up: With: Address: When: John BAPTISTE [address] [place] [address], [address], [address] [address] Business (1) Comments: Push the fluids to keep the urine clear. Stay on the Flomax for now. Some discharge instructions have been provided. If the bleeding gets severe, or the catheter is clogging from blood clots, you need to go to the ERfor irrigation. Will make a one week appt. to remove the catheter. Type Location Start [facility] Urology CALL PAT FT [facility] Urology Surgical Services 08/13/2024 12:00 PM [...] follow up call? Yes (more content not included)...[facility] HospitalUrology Office/Clinic Noteon 61-57-3530Wqjkhau Office/Clinic NoteUrology Office/Clinic Note Chief Complaint Cysto [...] Contact Information John BAPTISTE MD, URL [address] [address]- Additional Instructions: schedule Urolift Patient Education Prostatic Urethral Lift I, Dayanara Murrell, personally scribed for Dr. Baptiste on 06/23/2024 15:40:59. . Documentation recorded by the scribeDayanara, accurately reflects the services(s) I performed and decisions made by me. Authenticated by Dr. Baptiste on 06/23/2024 15:42:23. Portions of this record may have been created with voice recognition artificial intelligence software, specif (more content not included)...[facility] HospitalComment on above:Result Comment: Electronically Signed By: John BAPTISTE MD\.br\Date and Time Signed: 06/23/24 15:44 EST\.br\Electronically Co-Signed By: Dayanara Murrell\.br\Date and Time Co-Signed: 06/23/24 15:41 EST Urology Office/Clinic Noteon 14-67-8537Knhffhz Office/Clinic NoteUrology Office/Clinic Note Chief Complaint 2 [...] Contact Information ADRIÁN DELACRUZ, SU Esquivel, URL [address] [place] [address] Additional Instructions: Schedule Cysto Patient [...] congestive heart failure Coronary artery disease involving [place] heart with angina pectoris Elevated PSA GERD [...] Protein Urine Dipstick: Negative (04/28/24 12:04:00) Specific [place] Urine Dipstick: 1.020 (04/28/24 12:04:00) Urine Appearance Urine Dipstick: Clear (04/28/24 12:04:00) Urine Color Urine Dipstick: Yellow (04/28/24 12:04:00) Urobilinogen Urine Dipstick: Normal 0.2-1 EU/dl (04/28/24 12:04:00) pH Urine Dipstick: 6.5 (04/28/24 12:04:00)NormalOnslow Memorial Hospitaler [facility] Comment on above:Result Comment: Electronically Signed By: SU COOK PA-C\.br\Date and Time Signed: 04/28/2413:37 EST\.br\Electronically Co-Signed By: Shree Stallworth\.br\Date and Time Co-Signed: 04/28/24 12:30 ESTCHEMISTRYOrdered By: SYSTEM SYSTEM on 72-60-1655Assvripw specific Ag [Mass/Vol]2.3 ng/mLNormal0.1 - 3.5 ng/mLRemisol ChemComment on above:Interpretive Data: The concentration of PSA determined by different manufacturers can vary due to differences in assay methods and reagent specificity. Values obtained from different assay methods cannot be used interchangeably. The methodology used for this result was chemiluminescence using [employer]'s Access Hybritech PSA reagent.PSA Total on 59-98-2977Oqpfbgjc specific Ag [Mass/Vol]2.3 ng/mLNormal0.1-3.5Fisher St. Agnes HospitalComment on above:Result Comment: The concentration of PSA determined by different manufacturers can vary due to differences in assay methods and reagent specificity. Values obtained from different assay methods cannot be used interchangeably. The methodology used for this result was chemiluminescence using Mynor Haider's Access Hybritech PSA reagent.Performed By: #### [id number] #### [facility] [address], [place] [address]Gs Panel Informationon 92-22-3911HBPSNEUGLZQEG HealthcareWHITE BLOOD CELLSon 24-15-9572LMSCN BLOOD CELLS White Blood Cells [facility] HealthcareOSKALOOSA BLOOD CELLSNone [facility] HealthcareCT Cheston 23-88-4408Yva[address] [address] [address] Scan Report Signed Patient: DEMARCUS CALDERON MR#: [id number] : 1955 Acct:[id number] Age/Sex: 69 / M ADM Date: 01/17/24 Loc: CT Attending Dr: Chalino Phoenix D.O. Ordering Physician: Chalino Phoenix D.O. Date of Service: 01/17/24 Procedure(s): CT chest high res Accession Number(s): [id number] cc: SERA FLOWER [address] [address] Patient Name: DEMARCUS CALDERON MRN: [facility]:[id number] date: 1955 Sex: M Assigned Patient Location: CT Current Patient Location: Accession/Order Number: [id number] Exam Date: 01/17/2024 07:55 Report Date: 01/18/2024 [...] Signed By: 01/18/24 06 DD/ 0557 TD/TT: Rn Orthopaedic:TBHRadiology, Radiologist, MD - 01/18/[address] [address] [address] Scan Report Signed Patient: DEMARCUS CALDERON MR#: [id number] : 1955 Acct:[id number] Age/Sex: 69 / M ADM Date: 01/17/24 Loc: CT Attending Dr: Chalino Phoenix D.O. Ordering Physician: Chalino Phoenix D.O. Date of Service: 01/17/24 Procedure(s): CT chest high res Accession Number(s): [id number] cc: SERA FLOWER [address] [address] Patient Name: DEMARCUS CALDERON MRN: [id number] date: 1955 Sex: M Assigned Patient Location: CT Current Patient Location: Accession/Order Number: [id number] Exam Date: 01/17/2024 07:55 Report Date: 01/18/2024 [...] Signed By: 01/18/24 0600 DD/ 0557 TD/TT: Rn Orthopaedic: GITA HealthcareRadiology Study observation (narrative)[facility] CenterNo Panel InformationOrdered By: Radiologist Radiology on 70-33-4647FKPG Status [employer] Work Phone: rt PULMONARY FUNCTION TESTon 08-10-3748[place] [address] Respiratory Report Signed Patient: DEMARCUS CALDERON MR#: [id number] : 1955 Acct:[id number] Age/Sex: 69 / M ADM Date: 01/17/24 Loc: CT Attending Dr: Chalino Phoenix D.O. Ordering Physician: Chalino Phoenix D.O. 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 Signed By: 01/18/24807 DD/ 7 TD/TT: Rn Orthopaedic:TBHRadiology, Radiologist, - 01/18/2024 [place] [address] Respiratory Report Signed Patient: DEMARCUS CALDERON MR#: [id number] : 1955 Acct:[id number] Age/Sex: 69 / M ADM Date: 01/17/24 Loc: CT Attending Dr: Chalino Phoenix D.O. Ordering Physician: Chalino Phoenix D.O. 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 Signed By: 01/18/24807 DD/ 7 TD/TT: Rn Orthopaedic: GITA Townsend PULMONARY FUNCTION TESTon 16-58-8491Gwbwbtfso Study observation (narrative)GITA BucknerActivated partial thromboplastin time (aPTT) in platelet poor plasma by coagulation aOrdered By: Jasper Martinez on 99-32-2735gCKV Coag (PPP) [Time]30.2 s25.1-36.5FClermont County Hospital Comment on above:A hematocrit value greater than 55% may lead to inaccurate results in coagulation testing. Patientshaving hematocrit values >55% require a special collection tube for coagulation studies. Please contact the laboratory at [phone] for redraw instructions.Alanine aminotransferase [Enzymatic activity/volume] in Serum or PlasmaOrdered By: Jasper Martinez on 06-14-2023 ALT [Catalytic activity/Vol]37 U/L7-52[facility] HospitalAlbumin [Mass/volume] in Serum or Plasma by Bromocresol green (BCG) dye binding metho Ordered By: Jasper Martinez on 00-75-9487Uobcxqy BCG dye [Mass/Vol]4.1 g/dL 3.5-5.7FClermont County HospitalAlkaline phosphatase [Enzymatic activity/volume] in Serum or PlasmaOrdered By: Jasper Martinez on 06-14-2023 ALP [Catalytic activity/Vol]59 U/P14-837PhxilfyfaElyria Memorial Hospital Aspartate aminotransferase [Enzymatic activity/volume] in Serum or PlasmaOrdered By: Jasper Martinez on 25-18-6975EYE [Catalytic activity/Vol]29 U/L13-39 [facility] HospitalBasophils Auto (Bld) [#/Vol]Ordered By: Jasper Martinez on 68-76-4899Kfucmbsed (Bld) [#/Vol]0.0 10*3/uL0.0-0.2 [facility] HospitalBasophils/100 WBC Auto (Bld)Ordered By: Jasper Martinez on 90-78-7824Tyvmqxvht/100 WBC (Bld)0.6 %.[facility] HospitalBilirubin.total [Mass/volume] in Serum or PlasmaOrdered By: Jasper Martinez on 76-13-4823Cdzjtsovj [Mass/Vol]0.4 mg/dL0.3-1.0[facility] HospitalCOVID CepheidOrdered By: Jasper Martinez on 06-14-2023 SARS-CoV-2 (COVID-19) Ab IA QlNegativeNegativeElyria Memorial Hospital Comment on above:This is a duplicate [employer]epG[employer] Xpert Xpress CoV-2/Flu/RSV Plus RNA by RT-PCR result to be used for statistical tracking purpose only.SARS-CoV-2 (COVID-19) RNA VERONA+probe Ql (Unsp spec)[facility] HospitalCalcium [Mass/volume] in Serum or PlasmaOrdered By: Jasper Martinez on 06-14-2023 Calcium [Mass/Vol]9.0 mg/dL8.6-10.3FClermont County HospitalCarbon dioxide, total [Moles/volume] in Serum or PlasmaOrdered By: Jasper Martinez on 59-17-9513GO8 [Moles/Vol]23.4 mmol/L21.0-31.0[facility] Chloride [Moles/volume] in Serum or PlasmaOrdered By: Jasper Martinez 94-92-3240Aafmhdgg [Moles/Vol]105 mmol/B42-956DnudmlbnoElyria Memorial Hospital Creatine kinase [Enzymatic activity/volume] in Serum or PlasmaOrdered By: Jasper Martinez on 44-57-9526NU [Catalytic activity/Vol]185 U/H14-352LjmvxujbaElyria Memorial HospitalCreatinine [Mass/volume] in Serum or PlasmaOrdered By: Jasper Martinez on 64-88-9078Yiqvfpyhzp [Mass/Vol]0.89 mg/dL0.70-1.30[facility] HospitalEosinophils Auto (Bld) [#/Vol]Ordered By: Jasper Mratinez on 75-96-7141Hpmmopivmoa (Bld) [#/Vol]0.8 10*3/uL0.0-0.45[facility] HospitalEosinophils/100 WBC Auto (Bld)Ordered By: Jasper Martinez on 21-18-1433Nnjejspsibb/100 WBC (Bld)9.6 %.[facility] HospitalErythrocyte distribution width Auto (RBC) [Ratio]Ordered By: Jasper Martinez on 08-20-6403Ocpccjgykkh distribution width (RBC) [Ratio]14.4 %12.0-14.8 [facility] HospitalGlobulin Calc (S) [Mass/Vol]Ordered By: Jasper Martinez on 94-59-9929Tfhbquaq (S) [Mass/Vol]2.5 g/dLElyria Memorial HospitalGlucose [Mass/volume] in Serum or PlasmaOrdered By: Jasper Martinez on 94-43-6681Jazbazc [Mass/Vol]144 mg/mH65-148DaquhszshElyria Memorial HospitalComment on above:ADA recommended reference rangeRandom Glucose Reference Range is dependent on time and content of last meal. Glucose of more than 200 mg/dL in a nonstressed, ambulatory subject supports the diagnosisof Diabetes Mellitus.Hematocrit Auto (Bld) [Volume fraction]Ordered By: Jasper Martinez on 24-77-5290Krgjpzvucv (Bld) [Volume fraction]40.8 %38.8-50.0[facility] HospitalHemoglobin [Mass/volume] in BloodOrdered By: Jasper Martinez 05-88-4618Tczoycbank (Bld) [Mass/Vol]14.3 g/dL13.0-17.0[facility] HospitalINR in Platelet poor plasma by Coagulation assayOrdered By: Jasper Martinez on 70-07-6093UZA Coag (PPP) [Relative time]1.1 {INR}[facility] HospitalComment on above:INR Therapeutic Range A) Pre- [...] by Automated counOrdered By: Jasper Martinez on 47-28-5616UWQ corrected for nucl RBC Auto (Bld) [#/Vol]8.1 10*3/uL 4.1-10.5FClermont County HospitalLymphocytes Auto (Bld) [#/Vol]Ordered By: Jasper Martinez on 39-36-5090Vujbvbnbows (Bld) [#/Vol]1.5 10*3/uL1.00-4.8 [facility] HospitalLymphocytes/100 WBC Auto (Bld)Ordered By: Jasper Martinez on 52-81-9971Ungwftdarbm/100 WBC (Bld)18.5 %.[facility] Auto (RBC) [Entitic mass]Ordered By: Jasper Martinez on 28-78-9199DSA (RBC) [Entitic mass]30.1 pg27.5-35.2FBluffton HospitalHC Auto (RBC) [Mass/Vol]Ordered By: Jasper Martinez on 33-49-7365KMWX (RBC) [Mass/Vol]34.9 g/dL32.5-35.6FClermont County HospitalMCV Auto (RBC) [Entitic vol]Ordered By: Jasper Martinez on 50-48-9997WQJ (RBC) [Entitic vol]86.2 fL83.5-101[facility] HospitalMagnesium [Mass/volume] in Serum or PlasmaOrdered By: Jasper Martinez on 06-14-2023 Magnesium [Mass/Vol]2.0 mg/dL1.9-2.7FClermont County HospitalMonocyte distribution width [Entitic volume] in Blood by AutomatedOrdered By: Jasper Martinez on 88-69-1007Uwtctgar distribution width Auto (Bld) [Entitic vol]16.39 % 0.00-20.00[facility] HospitalMonocytes Auto (Bld) [#/Vol]Ordered By: Jasper Martinez on 59-09-0106Bwfiymkms (Bld) [#/Vol]0.8 10*3/uL0.0-0.8 [facility] HospitalMonocytes/100 WBC Auto (Bld)Ordered By: Jasper Martinez on 04-73-2375Zyiuvpcxt/100 WBC (Bld)10.1 %.[facility] HospitalNatriuretic peptide B [Mass/Vol]Ordered By: Jasper Martinez on 03-62-2058Oznxblbcaya peptide B (Bld) [Mass/Vol]67.0 pg/mL5-100[facility] HospitalNeutrophils Auto (Bld) [#/Vol]Ordered By: Jasepr Martinez on 97-74-8917Qfpxnigiqym (Bld) [#/Vol]4.9 10*3/uL1.8-7.7FClermont County HospitalNeutrophils/100 WBC Auto (Bld)Ordered By: Jasper Martinez on 96-56-9069Pyqoczyzpqj/100 WBC (Bld)61.2 %.[facility] HospitalNo Panel InformationOrdered By: Jasper Martinez on 64-55-9980Unvewgvwf GFR (CKD-EPI)> 60.0 mL/MinElyria Memorial HospitalPharmacy Creatinine Clearance (Chem92.42[facility] HospitalNucleated erythrocytes [Presence] in Blood by Automated countOrdered By: Jasper Martinez on 50-35-3123Xmuzyjylw RBC Auto Ql (Bld)0.1 /100{WBC}0-0.5FClermont County HospitalPlatelet mean volume Auto (Bld) [Entitic vol]Ordered By: Jasper Martinez on 95-90-6248Jiudunix mean volume (Bld) [Entitic vol]8.4 fL6.6-10.1 [facility] HospitalPlatelets Auto (Bld) [#/Vol]Ordered By: Jasper Martinez on 66-89-2187Zoosubuki (Bld) [#/Vol]181 10*3/qE789-046 [facility] HospitalPotassium [Moles/volume] in Serum or Plasma Ordered By: Jasper Martinez on 80-38-3463Vyjgckfbl [Moles/Vol]3.9 mmol/L 3.5-5.1FClermont County HospitalProtein [Mass/volume] in Serum or Plasma Ordered By: Jasper Martinez on 32-99-1395Bzqtdjy [Mass/Vol]6.6 g/dL6.4-8.9 [facility] HospitalProthrombin time (PT)Ordered By: Jasper Martinez on 34-96-7248PI Coag (PPP) [Time]12.1 s9.0-12.9[facility] HospitalComment on above:A hematocrit value greater than 55% may lead to inaccurate results in coagulation testing. Patientshaving hematocrit values >55% require a special collection tube for coagulation studies. Please contact the laboratory at [phone] for redraw instructions.RBC Auto (Bld) [#/Vol]Ordered By: Jasper Martinez on 20-89-9826ODV (Bld) [#/Vol]4.74 10*6/uL3.90-5.60 [facility] Hospitalerum or plasma albumin/globulin mass ratio Ordered By: Jasper Martinez on 44-82-7466Xwclsxj/Globulin [Mass ratio]1.6 {ratio}[facility] Hospitalerum or plasma anion gap determination Ordered By: Jasper Martinez on 18-43-3934Gdjzc gap [Moles/Vol]11.5 mmol/L 6.0-15.0[facility] Hospitalodium [Moles/volume] in Serum or PlasmaOrdered By: Jasper Martinez on 25-39-2236Seleou [Moles/Vol]136 mmol/L 136-145[facility] HospitalTroponin I.cardiac [Mass/volume] in Serum or Plasma by Detection limit <= 0.01 ng/Ordered By: Jasper Martinez on 90-25-9411Twdoxzog I.cardiac DL <= 0.01 ng/mL [Mass/Vol]26.8 pg/mL0.0-20.0 [facility] HospitalUrea nitrogen [Mass/volume] in Serum or Plasma Ordered By: Jasper Martinez on 97-25-9658Qpmo nitrogen [Mass/Vol]12 mg/dL7-25 [facility] HospitalWBC Auto (Bld) [#/Vol]Ordered By: Jasper Martinez on 16-68-1626UQB (Bld) [#/Vol]8.1 10*3/uL4.1-10.5FClermont County HospitalCardiac echo study Procedureon 11-15-5834Tvgilyb by an unspecified provider.[facility] CenterUnGrand [facility] Alanine aminotransferase [Enzymatic activity/volume] in Serum or PlasmaOrdered By: Sear Flower on 02-88-3270VQO [Catalytic activity/Vol]51 U/L7-52[facility] HospitalAlbumin [Mass/volume] in Serum or Plasma by Bromocresol green (BCG) dye binding methoOrdered By: Sera Flower on 72-20-5794Xyotcky BCG dye [Mass/Vol]4.4 g/dL3.5-5.7FClermont County HospitalAlkaline phosphatase [Enzymatic activity/volume] in Serum or PlasmaOrdered By: Sera Flower on 76-46-3850BAQ [Catalytic activity/Vol]61 U/V07-866BpivslkvjElyria Memorial HospitalAspartate aminotransferase [Enzymatic activity/volume] in Serum or PlasmaOrdered By: Sera Flower on 38-29-1239ZPZ [Catalytic activity/Vol]39 U/L 13-39[facility] HospitalBilirubin.total [Mass/volume] in Serum or PlasmaOrdered By: Sera Flower on 97-30-3396Sigknmqvc [Mass/Vol]0.7 mg/dL0.3-1.0 [facility] HospitalCalcium [Mass/volume] in Serum or PlasmaOrdered By: Sera Flower on 67-52-5057Ncwbzur [Mass/Vol]9.1 mg/dL8.6-10.3FClermont County HospitalCarbon dioxide, total [Moles/volume] in Serum or Plasma Ordered By: Sera Flower on 45-36-0614FX4 [Moles/Vol]28.0 mmol/L21.0-31.0 [facility] HospitalChloride [Moles/volume] in Serum or Plasma Ordered By: Sera Flower on 91-74-8387Ycmjrcwz [Moles/Vol]103 mmol/L98-107 [facility] HospitalCreatinine [Mass/volume] in Serum or Plasma Ordered By: Sera Flower on 95-65-7437Sqvplxpzef [Mass/Vol]1.00 mg/dL0.70-1.30 [facility] HospitalGlobulin Calc (S) [Mass/Vol]Ordered By: Sera Flower on 23-78-0180Raelbwuc (S) [Mass/Vol]1.7 g/dLElyria Memorial HospitalGlucose [Mass/volume] in Serum or PlasmaOrdered By: Sera Flower on 38-33-3984Ytdvgqo [Mass/Vol]93 mg/kS34-384EdpnopbytElyria Memorial Hospital Comment on above:ADA recommended reference rangeRandom Glucose Reference Range is dependent on time and content of last meal. Glucose of more than 200 mg/dL in a nonstressed, ambulatory subject supports the diagnosisof Diabetes Mellitus.No Panel InformationOrdered By: Sera Flower on 02-86-9705Mtxzeoyde GFR (CKD-EPI)> 60.0 mL/MinElyria Memorial HospitalPharmacy Creatinine Clearance (Chem N/[facility] HospitalNo Panel Informationon 27-33-6910HCRed Wing [facility] 250 DO Work Phone: Potassium [Moles/volume] in Serum or PlasmaOrdered By: Sera Flower on 84-25-3374Uydzltjey [Moles/Vol]4.4 mmol/L3.5-5.1FClermont County HospitalProtein [Mass/volume] in Serum or PlasmaOrdered By: Sera Flower on 28-86-2648Tzrrodl [Mass/Vol]6.1 g/dL6.4-8.9[facility] Hospitalerum or plasma albumin/globulin mass ratioOrdered By: Sera Flower on 62-97-6509Urufyug/Globulin [Mass ratio]2.6 {ratio}[facility] Hospitalerum or plasma anion gap determinationOrdered By: Sera Flower on 99-12-0445Cscvj gap [Moles/Vol]11.4 mmol/L6.0-15.0[facility] Hospitalodium [Moles/volume] in Serum or PlasmaOrdered By: Sera Flower on 16-13-3965Njtzbi [Moles/Vol]138 mmol/O063-951WezspzvwtElyria Memorial Hospital Urea nitrogen [Mass/volume] in Serum or PlasmaOrdered By: Sera Flower on 41-47-5460Ujzf nitrogen [Mass/Vol]15 mg/dL7-25[facility] CARDIAC STRESS/REST INJECTIONon 07-50-5165NWN CARDIAC STRESS/REST INJECTION Patient Name: DEMARCUS CALDERON STUDY: MYOCARDIAL PERFUSION STRESS TEST WITH LEXISCAN Performing facility: [facility], [address] [place] [address], [address], [place] [address] [facility] Provider: Rene Cortez MD, FACC PCP: Dr. Hunter Flower Supervising provider: Danna Davis DO, [facility] INDICATION: CAD; HTN Hyperlipidemia Ischemic cardiomyopathy HISTORY: Gender: M; Age: 68 y/o ; Height: 172.72 cm; Weight: 729.6739635 kg. CAD; High Cholesterol; HTN; Quit smoking 38 years ago. Cardiac catheterization on 2009. PTCA on 2009. COMPARISON: Previous nuclear testing completed at [facility]. ACCESSION NUMBER(S): [id number]; [id number]; [id number] ORDERING CLINICIAN: RENE CORTEZ TECHNIQUE: TWO DAY [...] changes are seen. Electronically signed by: Hoda WILEYYuma District HospitalNo Panel Informationon 13-74-7110KwuvbjNY-[facility]-Terrell Dalal DO Work Phone: Office Visit (Cardiology)on 75-70-7636Tqsojh-up visit Diagnoses/Problems Assessed CAD (coronary artery disease) [...] lose weight.; Status:Complete - Retrospective Authorization; Done: [id number] Essential hypertension, Ischemic cardiomyopathy Renew: Carvedilol 6.25 [...] emphasis on low-calorie diet Rene Cortez MD, [facility] Surgical History Problems History of Coronary [...] a (more content not included)...NormalUH TouchworksTobacco Screening.on 58-81-9192Zfqec depression screening wbvyxsbshwPoSX-Cyffmeuwik-Npgdhhpt 250 DO Work Phone: Fall risk assessmenta) No falls within the last year XA-Ipqlbihnox-Wbskkdmv 250 DO Work Phone: Tobacco use status CPHSb) GzXA-Zcygsuctmd-Qpqavqli 250 DO Work Phone: MRI Soft Tissue Neck w/o + w/on 53-32-0304KEX Soft Tissue Neck w/o + w/CLINICAL HISTORY: [...] and signed by Tex Walsh on 07/16/2022 1246NormalNorttucson heart hospitaln [facility] SpecialistMRI Brain w/o + w/on 80-56-6941AET Brain w/o + w/EXAM: MRI Brain. Multi-sequence [...] signed by Sean Trejo on 07/01/2022 0911[facility] SpecialistCNPNon 76-82-2909GNNOEqhykuuru (INTMLN) DEMARCUS CALDERON ([id number]) 1955 Date Time Provider Department 06/21/22 DEANDRA BENDER During your visit today, we recorded the following information about you: Delores Mccollum 06/21/2022 12:54 PM Signed [facility] called today. : 1955 Allergies: Codeine, Codeine-Guaifenesin, and Guaifenesin (home) [phone] (cell) Reason for call: Sasha F:[phone] Asking for the MRI orders and office notes to be faxed over to [facility]. Patient will be having them done there. Patient last appointment: Visit date not found The patients preferred pharmacy has been captured for this encounter? not asked Delores Heard [facility] 06/21/2022 2:03 PM Signed Notes and MRI [...] (None) Encounter Status:Closed by ORQUIDEA SIBLEY on 06/21/22NoKindred HealthcareXR Ribs w/ PA Chest Left*on 77-29-2992AO Ribs w/ PA Chest Left* CLINICAL HISTORY: [...] and signed by Tex Walsh on 03/13/2022 1254[facility] Lodi HospitalXR Chest 2 Views*on 87-59-4494N[place] Chest 2 Views* COMPARISON: none TECHNIQUE: Upright PA and lateral views of the chest were obtained. FINDINGS: Heart is normal in size. Lungs are clear and well expanded. No pleural effusion or pneumothorax. The bony thorax is unremarkable. IMPRESSION: NO ACUTE CARDIOPULMONARY ABNORMALITY. Report reported and signed by AMALIA LOGAN on 01/17/2022 1243[facility] Lodi HospitalTobacco Screening.on 70-12-0726Gbuox depression screening assessmentNoLourdes Medical Center Heart-Terrell 250 DO Work Phone: Fall risk assessmenta) No falls within the last year -[facility]-Terrell 250 DO Work Phone: Tobacco use status CPHSb) NoM-[facility]- Terrell 250 DO Work Phone: CT Chest w/Contraston 61-24-0509CY Chest w/Contrast History: Hemoptysis Technique: Multiple contiguous [...] signed by AMALIA LOGAN on 08/04/2021 1346NormalNorthern Washington Medical SpecialistComplete Blood Count with Auto Diffon 07-29-2021 Basophils (Bld) [#/Vol]0.05 10*3/uLNormal0.00-0.20[facility] SpecialistComment on above:Performed By: #### CMP, CBCAD #### [facility] [address] [place], [place] [id number]/100 WBC (Bld)0.8 %[facility] SpecialistComment on above:Performed By: #### CMP, CBCAD #### [facility] [address] [place], [place] [id number] (Bld) [#/Vol]0.46 10*3/uLNormal0.02-0.50[facility] SpecialistComment on above:Performed By: #### CMP, CBCAD #### [facility] [address] [place], [place] [id number]/100 WBC (Bld)7.7 %[facility] SpecialistComment on above:Performed By: #### CMP, CBCAD #### [facility] [address] [place], [place] [id number] distribution width (RBC) [Ratio]13.3 %Normal 11.0-15.0[facility] SpecialistComment on above:Performed By: #### CMP, CBCAD #### [facility] [address] [place], [place] [id number] (Bld) [Volume fraction]42.2 %Bhgdxt29.5-50.0 [facility] SpecialistComment on above:Performed By: #### CMP, CBCAD #### [facility] [address] [place], [place] [id number] (Bld) [Mass/Vol]14.5 g/dDOkyccw78.0-17.1[facility] SpecialistComment on above:Performed By: #### CMP, CBCAD #### [facility] [address] [place], [place] [id number] (Bld) [#/Vol]1.6 10*3/uLNormal0.9-3.9NoSumma Health SpecialistComment on above:Performed By: #### CMP, CBCAD #### [facility] [address] [place], [place] [id number]/100 WBC (Bld)26.1 %NormalNorthern [facility] Medical SpecialistComment on above:Performed By: #### CMP, CBCAD #### [facility] [address] [place], [place] [id number] (RBC) [Entitic mass]29.7 ehWnbtvx70.0-33.0NoSumma Health SpecialistComment on above:Performed By: #### CMP, CBCAD #### [facility] [address] [place], [place] [id number] (RBC) [Mass/Vol]34.4 g/hEGnpfvn71.0-36.0NoSumma Health SpecialistComment on above:Performed By: #### CMP, CBCAD #### [facility] [address] [place], [place] [id number] (RBC) [Entitic vol]86 oFSskkty16-090Kgiwfrmz [facility] SpecialistComment on above:Performed By: #### CMP, CBCAD #### [facility] [address] [place], [place] [id number] (Bld) [#/Vol]0.9 10*3/uLNormal0.2-0.9NoSumma Health SpecialistComment on above:Performed By: #### CMP, CBCAD #### [facility] [address] [place], [place] [id number]/100 WBC (Bld)14.6 %NormalNoSumma Health SpecialistComment on above:Performed By: #### CMP, CBCAD #### [facility] [address] [place], [place] [id number] (Bld) [#/Vol]3.0 10*3/uLNormal1.5-7.8NoSumma Health SpecialistComment on above:Performed By: #### CMP, CBCAD #### [facility] [address] [place], [place] [id number]/100 WBC (Bld)50.5 %NormalNoSumma Health SpecialistComment on above:Performed By: #### CMP, CBCAD #### [facility] [address] [place], [place] [id number] mean volume (Bld) [Entitic vol]10.90 fLNormal 7.50-12.50N[facility]Prem[facility] SpecialistComment on above:Performed By: #### CMP, CBCAD #### [facility] [address] [place], [place] [id number] (Bld) [#/Vol]166 10*3/cUKlyusp611-172Nxwvloly [facility] SpecialistComment on above:Performed By: #### CMP, CBCAD #### [facility] [address] [place], [place] [id number] (Bld) [#/Vol]4.89 10*6/uLNormal4.20-5.80NortPrem[facility] SpecialistComment on above:Performed By: #### CMP, CBCAD #### [facility] [address] [place], [place] [id number]-AP71.2 cPWglvop66.0-50.0NortPremier Health Miami Valley HospitalAssistant Operations Manager Comment on above:Performed By: #### CMP, CBCAD #### [facility] [address] [place], [place] [id number] (Bld) [#/Vol]5.9 10*3/uLNormal3.8-11.0NortPrem[facility] SpecialistComment on above:Performed By: #### CMP, CBCAD #### [facility] [address] [place], [place] [id number] Metabolic Panelon 04-85-0334Dxzzosr [Mass/Vol] 4.6 g/dLNormal3.6-5.1[facility] SpecialistComment on above:Performed By: #### CMP, CBCAD #### [facility] [address] [place], [place] [id number]/Globulin [Mass ratio]2.7 {ratio}High1.0-2.5NoSumma Health SpecialistComment on above:Performed By: #### CMP, CBCAD #### [facility] [address] [place], [place] [id number] [Catalytic activity/Vol]74 U/XEpeycn96-009Mktodnyg [facility] SpecialistComment on above:Performed By: #### CMP, CBCAD #### [facility] [address] [place], [place] [id number] [Catalytic activity/Vol]55 U/LHigh9-46[facility] SpecialistComment on above:Result Comment: 04/27/2021 Female reference range changed.Performed By: #### CMP, CBCAD #### [facility] [address] [place], [place] [id number] gap [Moles/Vol]16 mmol/EGeqnmk08-27Afmbzmyb [place] [facility] SpecialistComment on above:Result Comment: Effective 06/02/2019 reference range changed.Performed By: #### CMP, CBCAD #### [facility] [address] [place], [place] [id number] [Catalytic activity/Vol]39 U/AAnqwmy67-55Cgxlemrr [facility] SpecialistComment on above:Performed By: #### CMP, CBCAD #### [facility] [address] [place], [place] [id number]/CREA13 RatioNormal6-22[facility] Assistant Operations Manager Comment on above:Performed By: #### CMP, CBCAD #### [facility] [address] [place], [place] [id number] [Mass/Vol]9.0 mg/dLNormal8.6-10.2[facility] SpecialistComment on above:Performed By: #### CMP, CBCAD #### [facility] [address] [place], [place] [id number] [Moles/Vol]107 mmol/DSoksjq50-504Djztchnm [facility] SpecialistComment on above:Performed By: #### CMP, CBCAD #### [facility] [address] [place], [place] [id number] [Moles/Vol]20 mmol/YFywdgn12-68Nfcfyxbh [facility] SpecialistComment on above:Performed By: #### CMP, CBCAD #### [facility] [address] [place], [place] [id number] [Mass/Vol]1.0 mg/dLNormal0.7-1.4[facility] SpecialistComment on above:Performed By: #### CMP, CBCAD #### [facility] [address] [place], [place] [id number] mL/min/1.92l9Serbbe>60[facility]ortPrem[facility] SpecialistComment on above:Performed By: #### CMP, CBCAD #### [facility] [address] [place], [place] [id number] mL/min/1.70g1Lxunaj>60[facility]ortPrem[facility] SpecialistComment on above:Performed By: #### CMP, CBCAD #### [facility] [address] [place], [place] [id number] (S) [Mass/Vol]1.7 g/dLLow1.9-3.7Norttucson heart hospitaln [facility] SpecialistComment on above:Performed By: #### CMP, CBCAD #### [facility] [address] [place], [place] [id number] [Mass/Vol]121 mg/pDZnir60-95Vrshnbzs [facility] SpecialistComment on above:Result Comment: For FASTING Glucose --- ADA reference ranges: Normal 65-99 mg/dl Prediabetes 100-125 Diabetes >/= 126Performed By: #### CMP, CBCAD #### [facility] [address] [place], [place] [id number] [Moles/Vol]4.2 mmol/LNormal3.5-5.5NortPrem[facility] SpecialistComment on above:Performed By: #### CMP, CBCAD #### [facility] [address] [place], [place] [id number] [Mass/Vol]6.3 g/dLNormal6.1-8.1[facility] SpecialistComment on above:Performed By: #### CMP, CBCAD #### [facility] [address] [place], [place] [id number] [Moles/Vol]139 mmol/VVxvfrm811-235Peosgyoc [facility] SpecialistComment on above:Performed By: #### CMP, CBCAD #### [facility] [address] [place], [place] [id number]<0.3NormalNoSumma Health SpecialistComment on above:Performed By: #### CMP, CBCAD #### [facility] [address] [place], [place] [id number] nitrogen [Mass/Vol]12 mg/dLNormal7-25NortPrem[facility] SpecialistComment on above:Performed By: #### CMP, CBCAD #### [facility] [address] [place], [place] [id number] (with Creat)on 89-16-0693tRLP<1.2LowNorthHolzer HospitalComment on above:Result Comment: Unable to calculate mALB/Crea ratio, mALB is <1.2 mg/dL mALB reference range not established.Performed By: #### mALBC #### [facility] [address] [place], [place] [id number] mg/nCNirhzw83-895Gyyzajtb [place] Assistant Operations Manager Comment on above:Performed By: #### mALBC #### [facility] [address] [place], [place] [id number] Specific Antigen, Totalon 92-11-5223FCHC0.330 ng/mL Normal<4.000NoLima Memorial HospitalComment on above:Result Comment: PSA Test Method: ECLIA/Brandi e 601Performed By: #### PSA #### [facility] [address] [place], [place] [id number] - URINALYSIS,COMPLETEon 19-17-4407Amdjbvwaat (U)CLEARNormal CLEARFirelands Regional Medical Center South CampusComment on above:Order Comment: [facility] performed at: [facility], [employer] [facility], [address] [place] [address], [address] [place] [address], [place], [address], Work Adjustment Instructor: Rafi Agustin MD [facility] Date/Time: [facility] Results Received Date/Time: [facility] Reported Date/Time: [id number] By: #### 32F #### [facility] [address] [place], [place] [address]YALPWYBGFGXB SEENNormalNONE SEENNorttucson heart hospitaln [facility] HospitalAssistant Operations Manager Comment on above:Order Comment: [facility] performed at: [facility], [facility], [address] , [address] [place] [address], [address] [place] [address], Work Adjustment Instructor: Rafi Agustin MD [facility] Date/Time: [facility] Results Received Date/Time: [facility] Reported Date/Time: [id number] By: #### 32F #### [facility] [address] [place], [place] [address]Oijfvjwxu Ql (U)NegativeNormalNEGATIVErtSuburban Community [facility] & [facility] Medical SpecialistComment on above:Order Comment: [facility] performed at: [employer], [facility] [facility], [address] , [address] [place] [address], [address] [place] [address], Work Adjustment Instructor: Rafi Agustin MD [facility] Date/Time: [facility] Results Received Date/Time: [facility] Reported Date/Time: [id number] By: #### 32F #### [facility] [address] [place], [place] [address]Dcrtj (U)YELLOWNormalYELLOWNorttucson heart hospitaln [place] Assistant Operations Manager Comment on above:Order Comment: [facility] performed at: [facility], [facility], [address] , [address] [place] [address], [address] [place] [address], Work Adjustment Instructor: Rafi Agustin MD [facility] Date/Time: [facility] Results Received Date/Time: [facility] Reported Date/Time: [id number] By: #### 32F #### [facility] [address] [place], [place] [address]Ohglonv Ql (U)NegativeNormalNEGATIVENorttucson heart hospitaln [place] [facility] SpecialistComment on above:Order Comment: [facility] performed at: [facility], [employer] [facility], [address] , [address] [place] [address], [address] [place] [address], Work Adjustment Instructor: Rafi Agustin MD [facility] Date/Time: [facility] Results Received Date/Time: [facility] Reported Date/Time: [id number] By: #### 32F #### [facility] [address] [place], [place] [address]HLCIDMH CASTNONE SEENNormalNONE SEENTrinity Health [facility] SpecialistComment on above:Order Comment: [facility] performed at: [facility], [facility], [address] , [address] [place] [address], [address] [place] [address], Work Adjustment Instructor: Rafi Agustin MD [facility] Date/Time: [facility] Results Received Date/Time: [facility] Reported Date/Time: [id number] By: #### 32F #### [facility] [address] [place], [place] [address]Faaypyp Ql (U)NegativeNormalNEGCenterville SpecialistComment on above:Order Comment: [facility] performed at: [facility], [facility], [address] , [address] [place] [address], [address] [place] [address], Work Adjustment Instructor: Rafi Agustin MD [facility] Date/Time: [facility] Results Received Date/Time: [facility] Reported Date/Time: [id number] By: #### 32F #### [facility] [address] [place], [place] [address]Zcpfshiny esterase Test strip Ql (U)NegativeNormalNEGMercy Health Defiance Hospital SpecialistComment on above:Order Comment: [facility] performed at: [facility], [facility], [address] , [address] [place] [address], [address] [place] [address], Work Adjustment Instructor: Rafi Agustin MD [facility] Date/Time: [facility] Results Received Date/Time: [facility] Reported Date/Time: [id number] By: #### 32F #### [facility] [address] [place], [place] [address]Qxjmuyv Ql (U)NegativeNormalNEGATIVENoSumma Health SpecialistComment on above:Order Comment: [facility] performed at: [employer], [employer] [facility], [address] [facility], [address] [place] [address], [address] [place] [address], Work Adjustment Instructor: Rafi Agustin MD [facility] Date/Time: [facility] Results Received Date/Time: [facility] Reported Date/Time: [id number] By: #### 32F #### [facility] [address] [place], [place] [address]YXOZHQ BLOODNegativeNormalNEGATIVETrinity Health System West Campus SpecialistComment on above:Order Comment: [facility] performed at: [employer], [facility], [address] , [address] [place] [address], [address] [place] [address], Work Adjustment Instructor: Rafi Agustin MD [facility] Date/Time: [facility] Results Received Date/Time: [facility] Reported Date/Time: [id number] By: #### 32F #### [facility] [address] [place], [place] [address]fV (U)6.5 [pH]Normal5.0-8.0NoSumma Health Specialist Comment on above:Order Comment: [facility] performed at: [employer], [facility], [address] , [address] [place] [address], [address] [place] [address], Work Adjustment Instructor: Rafi Agustin MD [facility] Date/Time: [facility] Results Received Date/Time: [facility] Reported Date/Time: [id number] By: #### 32F #### [facility] [address] [place], [place] [address]Loyvrsk Ql (U)NegativeNormalNEGATIVENortPremier Health [facility] SpecialistComment on above:Order Comment: [facility] performed at: [facility], [facility], [address] [place] [address], [address] [place] [address], [address] [place] [address], Work Adjustment Instructor: Rafi Agustin MD [facility] Date/Time: [facility] Results Received Date/Time: [facility] Reported Date/Time: [id number] By: #### 32F #### [facility] [address] [place], [place] [address]WWGQFTN SEENNormal< OR = 2[facility] SpecialistComment on above:Order Comment: [facility] performed at: [employer], [facility], [address] [place] [address], [address] [place] [address], [address] [place] [address], Work Adjustment Instructor: Rafi Agustin MD [facility] Date/Time: [facility] Results Received Date/Time: [facility] Reported Date/Time: [id number] By: #### 32F #### [facility] [address] [place], [place] [address]Bysmjoro gravity (U) [Rel density]1.824Keqtzs7.001-1.035NortPremier Health [facility] SpecialistComment on above:Order Comment: [facility] performed at: [facility], [facility], [address] [place] [address], [address] [place] [address], [address] [place] [address], Work Adjustment Instructor: Rafi Agustin MD [facility] Date/Time: [facility] Results Received Date/Time: [facility] Reported Date/Time: [id number] By: #### 32F #### [facility] [address] [facility] [place] [address]VJKEZUOB EPITHELIAL CELLSNONE SEENNormal< OR = 5[facility] SpecialistComment on above:Order Comment: [facility] performed at: [employer], [facility], [address] [place] [address] Rd, [address] [place], [address], Work Adjustment Instructor: Raif Agustin MD [facility] Date/Time: [facility] Results Received Date/Time: [facility] Reported Date/Time: [id number] By: #### 32F #### [facility] [address] [place], [place] [address]YOSOMWN SEENNormal< OR = 5[facility] SpecialistComment on above:Order Comment: [facility] performed at: [facility], [facility], [address] [facility], [address] [place], [address], Work Adjustment Instructor: Rafi Agustin MD [facility] Date/Time: [facility] Results Received Date/Time: [facility] Reported Date/Time: [id number] By: #### 32F #### [facility] [address] [place], [place] [address]Td Panel InformationAshtabula General Hospital Vital Signs Date TimeVital SignValuePerforming HbockheptIuqdtxpv51-98-3094 09:46-0400Body .7 cmKiya Richmond ELECTROTYPER-PASTORAL WORKER Work Phone: [facility]05-30-2025 09:46-0400 Body mass index (BMI) [Ratio]33.82 kg/e1FmllnKiya Richmond ELECTROTYPER-PASTORAL WORKER Work Phone: [facility]05-30-2025 09:46-0400 Body sjktuf763.88 kgKiya Richmond ELECTROTYPER-PASTORAL WORKER Work Phone: [facility]05-30-2025 09:46-0400 Diastolic blood ydhhihjn90 mm[Hg]Kiya Richmond ELECTROTYPER-PASTORAL WORKER Work Phone: [facility]05-30-2025 09:46-0400 Heart rate84 /Saad Richmond ELECTROTYPER-PASTORAL WORKER Work Phone: [facility]05-30-2025 09:46-0400 Systolic blood azcqvhlw041 mm[Hg]Kiya Richmond ELECTROTYPER-PASTORAL WORKER Work Phone: [facility]05-24-2025 13:00-0400 Diastolic blood mm[Hg]Sera Flower MD Work Phone: [facility]05-24-2025 13:00-0400 Heart rate75 /minSera Flower MD Work Phone: [address] [place], [place] 8910805-24-2025 13:00-0400 Respiratory rate18 /minSera Flower MD Work Phone: [phone])582-[address] [place], [place] 1632605-24-2025 13:00-0400 SaO2% (BldA) [Mass fraction]94 %Sera Flower MD Work Phone: 1(133)501-[address] [place], [place] 1632605-24-2025 13:00-0400 Systolic blood xiikuquv422 mm[Hg]Sera Flower MD Work Phone: 0(042)131-[address] [place], [place] 1632605-24-2025 12:00-0400 Body fsejjzecyqr59.9 [degF]Sera Flower MD Work Phone: [phone])071-[address] [place], [place] 1632605-24-2025 09:00-0400 Inhaled oxygen flow rate2 L/minSera Flower MD Work Phone: 5(975)858-[address] [place], [place] 1632605-24-2025 05:22-0400 Body cwrujh08.9 kgSera Flower MD Work Phone: 6(790)311-[address] [place], [place] 1632605-23-2025 15:36-0400 Body qckiwh814.72 cmRmartha Flower MD Work Phone: [address] [place], [place] 8910804-30-2025 13:29-0400 Body tiyilk181.7 cmSally Mancuso DIGITAL MEDIA PLANNER Work Phone: noSaint [facility] RoadKrxfjdbytj28-45-4111 13:29-0400Body mass index (BMI) [Ratio]36.64 kg/m2Sally Mancuso DIGITAL MEDIA PLANNER Work Phone: noSaint [facility]Barry RoadCxxbovmbwr09-45-1617 13:29-0400Body hroykn125.32 kgGina Risaliti DIGITAL MEDIA PLANNER Work Phone: noSaint [facility]–Barry RoadRnzvgepujs58-11-7873 13:29-0400Diastolic blood wfnynoiy08 mm[Hg]Sally Risaliti DIGITAL MEDIA PLANNER Work Phone: [facility] CenterYwjpxqstwh30-46-8814 13:29-0400Heart rate79 /min Sally Risaliti DIGITAL MEDIA PLANNER Work Phone: noSaint [facility]–Barry RoadYsxvyyfqeq96-71-9493 13:29-9697ZjT9% (BldA) [Mass fraction]96 %Sally Risaliti DIGITAL MEDIA PLANNER Work Phone: noSaint [facility]–Barry RoadNsknfpbksu70-74-2862 13:29-0400Systolic blood kdlogmrs261 mm[Hg]Sally Risaliti DIGITAL MEDIA PLANNER Work Phone: [facility] CenterPzqbmmwiem61-96-5827 09:14-0500Body rmqcre012.7 cmGina Risaliti DIGITAL MEDIA PLANNER Work Phone: [facility] CenterYyooapfxag60-77-7112 09:14-0500Body mass index (BMI) [Ratio]35.88 kg/m2Gina Risaliti DIGITAL MEDIA PLANNER Work Phone: noSaint [facility]–Barry RoadGcrhrppivm87-03-0255 09:14-0500Body .05 kgGina Risaliti DIGITAL MEDIA PLANNER Work Phone: [facility] CenterVmlfjwgjuv32-78-2324 09:14-0500Diastolic blood iwlfypue59 mm[Hg]Sally Risaliti DIGITAL MEDIA PLANNER Work Phone: [facility] CenterQigqkffimo35-71-8233 09:14-0500Heart rate71 /min Sally Risaliti DIGITAL MEDIA PLANNER Work Phone: CPSaint [facility]–Barry RoadLdikxgmska00-93-6283 09:14-0472YrB3% (BldA) [Mass fraction]98 %Sally Risaliti DIGITAL MEDIA PLANNER Work Phone: noSaint [facility]–Barry RoadYwetjogswh45-20-4187 09:14-0500Systolic blood cuwqwing445 mm[Hg]Sally Risaliti DIGITAL MEDIA PLANNER Work Phone: noSaint [facility]–Barry RoadWqeilnsidy12-93-9821 14:52-0500Respiratory rate16 /minMentone COOK [facility] [place] 146352-19-2024 08:53-0500Body ugwraw208.7 cmRene Cortez MD Work Phone: [phone])844-[address] [place], [place] 5515512-19-2024 08:53-0500 Body mass index (BMI) [Ratio]36.28 kg/a2IjpdeoRene Cortez MD Work Phone: 1(185)[address]12-19-2024 08:53-0500 Body .23 kgRene Cortez MD Work Phone: 1(657)[address]-19-2024 08:53-0500 Diastolic blood dielvmop20 mm[Hg]Rene Cortez MD Work Phone: 1(106)[address]12-19-2024 08:53-0500 Heart rate60 /minRene Cortez MD Work Phone: 8(857)826-[address] [place], [place] 5515512-19-2024 08:53-0500 Systolic blood btmqzgij339 mm[Hg]Rene Cortez MD Work Phone: [phone])179-[address] [place], [place] 5515512-11-2024 17:27-0500 Body mass index (BMI) [Ratio]36.67 kg/q3WvrzafxGurjit Busby DIGITAL MEDIA PLANNER Work Phone: 1(996)326-[address] [place], [place] [address]Zxeybkfbfo23-11-9266 17:27-0500Body temperature 97.3 [degF]Gurjit Busby DIGITAL MEDIA PLANNER Work Phone: [phone])[address] [place], [place] [address]Eduuipfhdz63-97-6667 17:27-0500Body rzovsd443.41 kgGurjit Busby DIGITAL MEDIA PLANNER Work Phone: [phone] [place], [place] [address]Hjnkqlcgqb07-40-7060 17:27-0500Diastolic blood yeeokscc78 mm[Hg]Gurjit Busby DIGITAL MEDIA PLANNER Work Phone: [phone] [place], [place] [address]Gedacebpwt80-63-5414 17:27-0500Heart rate73 /min Gurjit Busby DIGITAL MEDIA PLANNER Work Phone: 1(640)371-[address] [place], [place] [address]Wvunzxvzfl40-99-6623 17:27-9239JwL1% (BldA) [Mass fraction]97 %Gurjit Busby DIGITAL MEDIA PLANNER Work Phone: [facility] CenterZiistqkiko86-59-2431 17:27-0500Systolic blood wuejrvvc762 mm[Hg]Gurjit Busby DIGITAL MEDIA PLANNER Work Phone: [facility] CenterRpygrpnvvu19-25-2944 11:59-0500Blood Pressure LocationJENNIFER ADRIÁN [facility] [place] 146352-02-2024 11:59-0500Diastolic blood dkxcgtfo87 mm[Hg]SU ADRIÁN [facility] [place] 146352-02-2024 11:59-0500Heart rate63 /minJENNIFER ADRIÁN [facility] [place] 146352-02-2024 11:59-0500Systolic blood wprqxqza362 mm[Hg]SU ADRIÁN [facility] [place] 146351-20-2024 10:11-0500Diastolic blood yqnzjqed66 mm[Hg]SU ADRIÁN [facility] [place] 146351-20-2024 10:11-0500Mean blood xrinxbvi27 mm[Hg]SU ADRIÁN [facility] [place] 146351-20-2024 10:11-0500Systolic blood mssrjbus695 mm[Hg]SU ADRIÁN [facility] [place] 146351-20-2024 09:45-0500Blood Pressure LocationJENNIFER ADRIÁN [facility] [place] 146351-20-2024 09:45-0500Body rlfrptmvdku18.6 [degF]SU ADRIÁN [facility] [place] 146351-20-2024 09:45-0500Diastolic blood ntvptqua84 mm[Hg]SU COOK [facility] [place] 146351-20-2024 09:45-0500Heart rate65 /minSU COOK [facility] [place] 146351-20-2024 09:45-0500Systolic blood hjopmhyp453 mm[Hg]SU COOK [facility] [place] 146350-30-2024 13:03-0400Body qictji875.7 cmRmartha Flower MD Work Phone: [facility] CenterGbfxzkxatd61-16-8133 13:03-0400Body mass index (BMI) [Ratio]35.88 kg/q5RlrovkSera Flower MD Work Phone: [facility] CenterRzonfbzfwq42-06-9935 13:03-0400Body uaklkn663.05 kgSera Flower MD Work Phone: [facility] CenterVlpybfiezx06-28-9879 13:03-0400Diastolic blood tzqjnxik01 mm[Hg]Sera Flower MD Work Phone: [facility] CenterBtrlwrxxdl38-69-2991 13:03-0400Heart rate77 /min Sera Flower MD Work Phone: [place] [address]Fwlnylflqr41-50-8927 13:03-0941XiV6% (BldA) [Mass fraction]96 %Sera Flower MD Work Phone: [place] [address]Dedqlijdyo02-86-0139 13:03-0400Systolic blood akkjnecs789 mm[Hg]Sera Flower MD Work Phone: [facility] CenterWpwrtidxmh96-60-8742 10:29-0400Body wtxoyq608.7 cmGinguanakito Mancuso NP Work Phone: noSaint Luke[facility] North Hospital–Barry RoadXsezuppvpn17-43-7990 10:29-0400Body mass index (BMI) [Ratio]35.43 kg/m2Gina Kimberlyaliti DIGITAL MEDIA PLANNER Work Phone: [phone] [place], [place] 1508610-02-2024 10:29-0400Body .69 kgAlexusa Kimberlyaliti DIGITAL MEDIA PLANNER Work Phone: [phone] [place], [place] 1508610-02-2024 10:29-0400Diastolic blood mm[Hg]Sally Risaliti DIGITAL MEDIA PLANNER Work Phone: [phone] [place], [place] 1508610-02-2024 10:29-0400Heart rate67 /min Sally Risaliti DIGITAL MEDIA PLANNER Work Phone: [phone] [place], [place] 1508610-02-2024 10:29-8857KbF3% (BldA) [Mass fraction]97 %Sally Kimberlyaliti DIGITAL MEDIA PLANNER Work Phone: [phone] [place], [place] 1508610-02-2024 10:29-0400Systolic blood ggezjqvz422 mm[Hg]Sally Kimberlyaliti DIGITAL MEDIA PLANNER Work Phone: [phone] [place], [place] 1508605-23-2024 09:25-0400Body .7 cmRene Cortez MD Work Phone: [phone]05-23-2024 09:25-0400 Body mass index (BMI) [Ratio]36.31 kg/y5MclgilRene Cortez MD Work Phone: [phone]05-23-2024 09:25-0400 Body .32 kgRene Cortez MD Work Phone: [phone])711-[address] [place], [place] 5515505-23-2024 09:25-0400 Diastolic blood fkvlmgwi62 mm[Hg]Rene Cortez MD Work Phone: [phone])[address]05-23-2024 09:25-0400 Heart rate68 /minRene Cortez MD Work Phone: [phone])[address]05-23-2024 09:25-0400 Systolic blood uqyiowyq415 mm[Hg]Rene Cortez MD Work Phone: [phone]02-03-2024 10:23-0500 Body mass index (BMI) [Ratio]35.28 kg/m2Pahellen Snyder DO Work Phone: [facility] CenterFsfrcstxif68-38-3487 10:23-0500Body temperature 97.81 [degF]Hosea Snyder DO Work Phone: [facility] CenterNeavmbwgrc37-99-5144 10:23-0500Body zruopn210.23 kgPaul Claudio SORENSON Work Phone: [facility] CenterIfegstvbyo45-23-1277 10:23-0500Diastolic blood qrqwomwb79 mm[Hg]Hosea Snyder DO Work Phone: [facility] CenterOjqfzgssoj51-51-0432 10:23-0500Heart rate86 /min Hosea Snyder DO Work Phone: [facility] CenterMyqraozsnv41-18-9266 10:23-0500Respiratory rate18 /minPahellen Snyder DO Work Phone: [facility] CenterBlpxfqikma52-16-3331 10:23-1790HiB9% (BldA) [Mass fraction]94 %Hosea Snyder DO Work Phone: [facility] CenterKtkvqiiczg24-30-0332 10:23-0500Systolic blood ucsiifue626 mm[Hg]Hosea Snyder DO Work Phone: [facility] CenterLhubkggikr43-78-5843 14:25-0500Body temperature 97.7 [degF]MD Sera Flower Work Phone: [facility]01-18-2024 14:25-0500 Diastolic blood yketquva99 mm[Hg]MD Sera Flower Work Phone: [facility]01-18-2024 14:25-0500 Heart rate78 /minMD Sera Flower Work Phone: [facility]01-18-2024 14:25-0500 Respiratory rate20 /minMD Sera Flower Work Phone: [facility]01-18-2024 14:25-0500 SaO2% (BldA) [Mass fraction]95 %MD Sera Flower Work Phone: [facility]01-18-2024 14:25-0500 Systolic blood glynowxj137 mm[Hg]MD Sera Flower Work Phone: [facility]01-18-2024 11:48-0500 Body iybgbv415.72 cmMD Sera Flower Work Phone: [facility]01-18-2024 11:48-0500 Body pvushk598.9 kgMD Sera Flower Work Phone: [facility]10-27-2023 09:34-0400 Body .7 cmRene Cortez MD Work Phone: [facility]10-27-2023 09:34-0400 Body mass index (BMI) [Ratio]35.12 kg/e1JgbkyvRene Cortez MD Work Phone: [phone]10-27-2023 09:34-0400 Body owapqf901.78 kgRene Cortez MD Work Phone: [facility]10-27-2023 09:34-0400 Diastolic blood mm[Hg]Rene Cortez MD Work Phone: [facility]10-27-2023 09:34-0400 Heart rate60 /minRene Cortez MD Work Phone: [facility]10-27-2023 09:34-0400 Systolic blood pygohhbi287 mm[Hg]Rene Cortez MD Work Phone: [facility]04-13-2023 11:31-0400 Body jucrgd108.72 cmRobert Arlene Flower Work Phone: [phone]-Mxcujyyfxo-[place] 250 DO Work Phone: 1(811) 447-464204-13-2023 11:31-0400Body mass index (BMI) [Ratio]36.8 kg/q3UvzppmSera Flower Work Phone: [phone]-Yutxlpyzpv-[place] 250 DO Work Phone: 1(844) 360-534104-13-2023 11:31-0400Body surface area Derived from formula2.22 n0Gwpqwtfarhad Flower Work Phone: [phone]-Yczrsbxcqj-[place] 250 DO Work Phone: 1(632) 254-678904-13-2023 11:31-0400Body .77 kgSera Flower Work Phone: mp521-2881CW-Mwutgibjcm-[place] 250 DO Work Phone: 1(750) 649-314304-13-2023 11:31-0400Diastolic blood aomtppan70 mm[Hg] Sera Flower Work Phone: mp699-7585JD-Qiokldjdxm-[place] 250 DO Work Phone: 1(808) 137-495904-13-2023 11:31-0400Heart rate76 /minSera Flower Work Phone: mp449-7751WA-Jodhcdmddr-[place] 250 DO Work Phone: 1(397) 498-185504-13-2023 11:31-0400Systolic blood qohevgvb989 mm[Hg] Sera Flower Work Phone: [phone]-Mecqyajyfc-[place] 250 DO Work Phone: 1(756) 680-280904-11-2022 14:04-0400Body .72 cmRobert Arlene Flower Work Phone: [phone]-Tjokn [facility] 250 DO Work Phone: 1(552) 677-347304-11-2022 14:04-0400Body mass index (BMI) [Ratio] 36.49 kg/e1ExchtwSera Flower Work Phone: [phone]-Hppiz [facility] 250 DO Work Phone: 1(346) 649-630504-11-2022 14:04-0400Body surface area Derived from formula2.21 a7OkijyxSera Flower Work Phone: [phone]-Xipem [facility] 250 DO Work Phone: 1(442) 292-711404-11-2022 14:04-0400Body .86 kgSera Flower Work Phone: mp529-9024SZ-Wgcdz [facility] 250 DO Work Phone: 1(268) 296-720004-11-2022 14:04-0400Diastolic blood aekrlanh29 mm[Hg] Sera Flower Work Phone: mp136-1146DG-Yvens [facility] 250 DO Work Phone: 1(451) 154-214704-11-2022 14:04-0400Heart rate70 /minRobfarhad Flower Work Phone: [phone]-Rbuzx [facility] 250 DO Work Phone: 1(696) [phone] 14:04-0400Systolic blood txfbjgvy516 mm[Hg] Sera Flower Work Phone: [phone]-Etlyr [facility] 250 DO Work Phone: Encounters Encounter DateEncounter TypeCare ProviderFacilityStart: 01-37-6275yfieslifkz John BAPTISTEFacility:EU PujayStart: 85-49-3399ewaovmpzxvLduavuu P COOK Facility:EU PujayStart: 03-16-2025 End: 44-18-2964alhtprqxedNOJICleveland Clinic [facility] Hospitaltart: 12-09-2024 End: 08-19-8626gshuzlopazSBIMCleveland Clinic [facility] Hospitaltart: 12-02-2024 End: 43-95-8140yaaanjuobcFmqicjf P COOKFacility:EU PujayStart: 12-02-2024 End: 49-75-7197Nqemujg encounter procedureJohn BAPTISTE [facility] [place] Start: 11-21-2024 End: 30-79-1914Kstrbjn encounter procedureKiya Richmond APRN-Electrodiagnostics Work Phone: Start: 11-21-2024 End: 09-51-1607qigwexyvfhLblvtr Hill MD Work Phone: [facility] Work Phone: Start: 10-31-2024 End: 79-61-4937Kqqtrpa encounter procedureSera Flower MD Work Phone: [facility] [place] Work Phone: Start: 10-31-2024 End: 91-21-2776mztdczcflnSrhgtx Hill MD Work Phone: [facility] Work Phone: Start: 10-24-2024 End: 88-96-9670Hakfcp outpatient visit 25 Elaina Richmond ELECTROTYPER-PASTORAL WORKER Work Phone: uh FirelandsComment on above:BMI 33.0-33.9,adult (Primary Dx); Ischemic cardiomyopathyStart: 10-24-2024 End: 73-05-7727yzsrhiuhxuNWREA K [facility] AmbulatoryStart: 10-16-2024 End: 56-52-1930Tdprjkflxi and management of inpatientSera Flower MD Work Phone: [facility] [place] [facility] Work Phone: Start: 09-24-2024 End: 23-85-8400Vqcenw outpatient visit 25 Alisha Mancuso NP Work Phone: noms [facility] IMComment on above:Gastroesophageal reflux disease without esophagitis (Primary Dx); Essential hypertension (CMS/HCC); Pure hypercholesterolemia (CMS/HCC); Chronic systolic (congestive) heart failure; Prediabetes; Coronary artery disease involving [place] coronary artery of [place] heart without angina pectoris (CMS/HCC); Severe persistent asthma, uncomplicated (CMS/HCC); Elevated PSA; BMI 36.0-36.9,adult; Morbid (severe) obesity due to excess calories (CMS/HCC); Medicare annual wellness visit, subsequent; ACP (advance care planning)Start: 09-24-2024 End: 29-78-8807Wjjkynw encounter procedureSally Mancuso NP Work Phone: noms HealthcareStart: 09-24-2024 End: 75-38-7744sdjxucbfucVXWGJose Juan TAMEZot AvailableStart: 08-26-2024 End: 32-52-7480mmalvuamhyHhqryij P COOKFacility:EU [place]uskyStart: 08-18-2024 End: 67-47-7296xrpglvcqkrRhxhfe X OrzechFacility:EU [place]uskyStart: 08-15-2024 End: 22-08-6335zqsnqfktjwByuhikx P COOKFacility:EU [place]kyStart: 08-08-2024 End: 19-56-5213fefdivfezxZrhjcpu P COOKFacility:FTMCStart: 08-08-2024 End: 58-32-1932Mvhmdlb encounter procedureGregory P COOK [facility] Start: 07-17-2024 End: 31-04-0918Hakvtb flowsheetEmgaston Long MD Work Phone: NONF SWS DERMStart: 07-17-2024 End: 52-04-7595Fqhzue flowsheetEmgaston Long MD Work Phone: NOMS SWS DERMStart: 07-17-2024 End: 54-38-6766Prlnwp outpatient new 45 minutesEmgaston Long MD Work Phone: noms SWS DERMComment on above:Epidermal inclusion cyst (Primary Dx); Erythema intertrigoStart: 07-17-2024 End: 34-05-5950comcynnehkBLGVM A PETITTINot AvailableStart: 07-02-2024 End: 01-73-5823Dxbmmp outpatient visit 25 minutesGina R Risaliti DIGITAL MEDIA PLANNER Work Phone: noms SWS IMComment on above:Chronic obstructive pulmonary disease, unspecified COPD type (CMS/HCC) (Primary Dx); Bronchiectasis without complication (CMS/HCC); Rash; Skin lesion of back; Sebaceous cystStart: 07-02-2024 End: 30-86-9599qrqothogmpAVTQ R RISALITINot AvailableStart: 06-23-2024 End: 85-92-9544rusocibzzxMlpvtev P COOKFacility:EU [place]kyStart: 06-23-2024 End: 47-72-9239Bssbapx encounter procedureGregcalderon Murtaza BAPTISTE [facility] Start: 05-15-2024 End: 19-54-8433Kaalow outpatient visit 25 minutesRene Cortez MD Work Phone: uh [facility] HealthlandsComment on above:Coronary artery disease involving [place] coronary artery of [place] heart without angina pectoris (Pr imary Dx); Essential hypertension; Ischemic cardiomyopathy; Mixed hyperlipidemia; Status post coronary artery stent placement; Former smoker; BMI 36.0-36.9,adult; Class 2 obesityStart: 05-15-2024 End: 38-71-9170bniztclwlkSLQSJD M [facility] AmbulatoryStart: 05-07-2024 End: 35-65-0688nnolpsketyBQTRHCO A NELSONNot AvailableStart: 05-07-2024 End: 93-06-3745Pcjkpu outpatient visit 15 minutesGurjit Busby NP Work Phone: noms [facility] UCComment on above:Non-recurrent acute serous otitis media of right ear (Primary Dx)Start: 04-28-2024 End: 85-86-2227gcssykqhacKWNathaly COOKFacility:EU uskyStart: 04-28-2024 End: 68-84-9496Rzjfkdz encounter procedureJENNIFER E ADRIÁN [facility] Start: 04-25-2024 End: 55-44-7394Tam Drop offJENNIFER E ADRIÁN [facility] Start: 04-25-2024 End: 12-20-4451prvfmidgerEMNathaly HUMPHRIESRYFacility:EU uskyStart: 04-25-2024 End: 50-77-3856Wyahvjs encounter procedureJENNIFER E ADRIÁN [facility] Start: 04-16-2024 End: 38-72-1250omcbwgykapHGKenyatta COOKFacility:EU yStart: 04-16-2024 End: 66-81-1250Swujnop encounter procedureJEDORENE COOK [facility] Start: 03-26-2024 End: 42-09-3666Mcfnpk outpatient visit 25 minutesSera Flower MD Work Phone: noms SWS IMComment on above:Essential hypertension (CMS/HCC) (Primary Dx); Chronic systolic congestive heart failure (CMS/HCC); Coronary artery disease involving [place] coronary artery of [place] heart without angina pectoris (CMS/HCC); Chronic obstructive pulmonary disease, unspecified COPD type (CMS/HCC); Pure hypercholesterolemia (CMS/HCC); Prediabetes; Elevated PSA; Benign prostatic hyperplasia without urinary obstruction; Bacterial pneumonia; Sinus drainageStart: 03-26-2024 End: 48-62-0315qclfbppiwxTLPYQI L HILLNot AvailableStart: 75-20-2973uqtiosnwep NUBIA COOKFacility:EU Bismarktart: 02-27-2024 End: 00-79-3600Anrrfwejhduj care manage srvc 7 day dischargeGina R Risaliti DIGITAL MEDIA PLANNER Work Phone: noms SWS IMComment on above:Sepsis, due to unspecified organism, unspecified whether acute organ dysfunction present (CMS/HCC) ( Primary Dx); Pneumonia of right middle lobe due to infectious organism; Hyponatremia; Essential hypertension (CMS/HCC); Chronic systolic congestive heart failure (CMS/HCC); Coronary artery disease involving [place] coronary artery of [place] heart without angina pectoris (CMS/HCC); Gastroesophageal reflux disease without esophagitis; Benign prostatic hyperplasia without urinary obstructionStart: 02-27-2024 End: 51-25-8434uvhsjertgbXANQ R RISALITINot AvailableStart: 02-18-2024 End: 69-37-5371Vrmgiitju Result Delfino Britt MD Work Phone: noms External Department UnsolicitedStart: 02-18-2024 End: 70-46-4452Eycouujup Result EncounterSfabiola Britt MD Work Phone: noms External Department UnsolicitedStart: 02-17-2024 End: 02-23-2386Rundiabgi Result EncounterGeneric External Data ProviderNOMS External Department UnsolicitedStart: 02-17-2024 End: 59-08-6019Ssplvufcg Result EncounterGeneric External Data ProviderNOMS External Department UnsolicitedStart: 02-15-2024 End: 51-76-0339Agnwwunxm Result EncounterGeneric External Data ProviderNOMS External Department UnsolicitedStart: 02-15-2024 End: 51-34-5347Ykhiqqhwd Result EncounterGeneric External Data ProviderNOMS External Department UnsolicitedStart: 01-18-2024 End: 75-77-0401Lnpjabjlp Result EncounterGeneric External Data ProviderNOMS External Department UnsolicitedStart: 01-18-2024 End: 99-01-2888Yxguarawm Result EncounterGeneric External Data ProviderNOMS External Department UnsolicitedStart: 01-17-2024 End: 57-78-6661Wccixampx Result EncounterGeneric External Data ProviderNOMS External Department UnsolicitedStart: 01-17-2024 End: 95-54-4944Mgssvhvux Result EncounterGeneric External Data ProviderNOMS External Department UnsolicitedStart: 2024 End: 62-22-0674lntardndckTCZIJDS L DIDIONNot AvailableStart: 10-18-2023 End: 95-34-1848Yympmz outpatient visit 25 minutesRene Cortez MD Work Phone: uh [facility] CenterCommymichigan medical center gladwin on above:Coronary artery disease involving [place] coronary artery of [place] heart without angina pectoris (Pr imary Dx); Essential hypertension; Mixed hyperlipidemia; Ischemic cardiomyopathy; Status post coronary artery stent placement; Class 2 obesity with body mass index (BMI) of 35.0 to 35.9 in adult, unspecified obesity type, unspecified whether serious comorbidity present; Former smokerStart: 06-30-2023 End: 38-17-3667Zloiwb outpatient visit 25 minutesHosea Jose Claudio DO Work Phone: noms [facility] UCComment on above:Acute exacerbation of chronic obstructive pulmonary disease (CMS/HCC) (Primary Dx)Start: 06-14-2023 End: 18-68-9900Cpmrbabsb department patient visitMD Sera Flower Work Phone: [facility] Work Phone: Start: 03-23-2023 End: 45-18-7693Hutbcj outpatient visit 25 minutesRene Cortez MD Work Phone: FirelandsComment on above:Coronary artery disease involving [place] coronary artery of [place] heart without angina pectoris; Essential hypertension; Mixed hyperlipidemia; Ischemic cardiomyopathy; Status post coronary artery stent placement; Class 2 obesity with body mass index (BMI) of 35.0 to 35.9 in adult, unspecified obesity type, unspecified whether serious comorbidity presentStart: 02-06-2023 OtherSera Jimenez Ching Work Phone: [phone]-KprosSwift [facility]-[place] 250 DO Work Phone: Start: 02-05-2023 End: 21-80-8100etdgzdqpcqLJ Sera Flower Work Phone: [facility] Work Phone: Start: 02-05-2023 End: 84-31-7229Mfiienw encounter procedureMD Sera Flower Work Phone: [facility]-Electrodiagnostics Work Phone: Start: 17-08-3140jbozltyrpzPb. Sera Frost Baker Facility:[id number]: 33-66-4385FFXMJEftwdi L Ching Work Phone: [phone]-Jecvi [facility] 600 DO Work Phone: Start: 63-83-7040UdlhtZmklwn L Ching Work Phone: [phone]-Jdcrv [facility] 250 DO Work Phone: Start: 47-90-1943Rosbj UpdateSera Flower Work Phone: [phone]) [phone]-Lfafh [facility] 250 DO Work Phone: Start: 60-06-5327kwpogzxdivBx. Sera Flower Facility:[id number]: 77-22-6940iivutmkxraWs. Sera FlowerFacility:9844Start: 11-14-2022 End: 61-21-7594jadankbqwuTYCHBBLSW HWANGFacility:[facility] Hospitaltart: 11-14-2022 End: 81-94-8661Ggjnkzj encounter procedureDeandra Bender MD Work Phone: OphthalmologyComment on above:Clonic hemifacial spasm, right (Primary Dx)Start: 05-18-4780Nvpcak outpatient visit 25 minutesSera Flower Work Phone: [phone]-Swztsncflx-[place] 250 DO Work Phone: Start: 26-30-1602ozwfbwyczmCcvtuq Cortez Facility:[id number]: 08-08-2022 End: 07-86-9553ubglxrpxzwKPKNNXXXI HWANGFacility:[facility] Hospitaltart: 08-08-2022 End: 61-97-7197Xczjwfz encounter procedureDeandra Bender MD Work Phone: OphthalmologyComment on above:Clonic hemifacial spasm, right (Primary Dx)Start: 96-64-0009Amsztgkis encounterDeandra Bender MD Work Phone: Internal Medicine LorainComment on above:OrdersStart: 06-21-2022 End: 83-24-0079jncfmjcxmrSHZUKHAED HWANGFacility:[facility] Hospitaltart: 06-21-2022 End: 38-96-1156Ztcidmz encounter procedureDeandra Bender MD Work Phone: OphthalmologyComment on above:Clonic hemifacial spasm, right (Primary Dx); Paralytic strabismus; Jada's syndromeStart: 05-01-2022 End: 34-97-3036jcyqlnggbkYTAAP R HOLMESFacility:[facility] Hospitaltart: 05-01-2022 End: 93-00-9007Jrmbcgf encounter procedureMau Randle OD Work Phone: OphthalmologyComment on above:Eyelid myokymia (Primary Dx); Dry eye syndrome of both eyes; Hyperopia of both eyes with astigmatism and presbyopiaStart: 64-68-2001Berjss outpatient visit 25 minutesRobfarhad Flower Work Phone: [phone]-Ojcop [facility] 250 DO Work Phone: Procedures DateProcedureProcedure DetailPerforming ClinicianStart: 20-02-6080UX LHC & COR AngioSera Flower MD Work Phone: Start: 57-47-2888Ulgjc chest X-raySera Flower MD Work Phone: Start: 73-32-7141WsvikxdbqqJbfeiql LINDEN Start: 09-24-3255SECL STAIN EVALUATIONSfabiola Britt MD Work Phone: Start: 90-39-4854Cahyihcznu [#/volume] in BloodShaiselam Britt MD Work Phone: Start: 52-72-8603NADRR RESPIRATORY CULTURESfabiola Britt MD Work Phone: Start: 05-87-9626APDOH CULTURE 2Generic External Data ProviderStart: 08-28-2291FDWRG CULTURE 1Generic External Data ProviderStart: 49-13-5774RGRRU CULTURE 2Generic External Data ProviderStart: 19-54-7915HHEYI CULTURE 1Generic External Data ProviderStart: 61-65-3183PL ChestGeneric External Data ProviderStart: 57-15-9970ZU PULMONARY FUNCTION TESTGeneric External Data ProviderStart: 59-07-6218Tiazb 1996 panel - Serum or PlasmaRene Cortez MD Work Phone: Start: 01-05-9775SDPU-CoV-2, Influenza & RSV (PCR)MD Sera Flower Work Phone: Start: 46-34-5012Ivwew chest X-rayMD Sera Flower Work Phone: Start: 98-12-0324VzyfuwickrjbtgfkEmlbkob Provider ScanningStart: 42-67-2858Ikdcjbv of placement of stent for coronary artery diseaseStatus post coronary artery stent placementRene Cortez MD Work Phone: Start: 19-84-4752Msuzorfqgmg [facility] innervated facial nrv Liliam Bender MD Work Phone: Start: 78-93-3354Xdpefrdpcrc [facility] innervated facial nrv Gia Huffman APRN.CNP Work Phone: Start: 77-21-4734EjzfhpifvzeLynl Bruner DO Work Phone: Colonoscope, device (physical [...] stentSera Flower MD Work Phone: Comment on above:k7Ceewaxy of placement of stent for coronary artery diseaseHistory of heart artery stentSlila Caraballo DO Percutaneous transluminal coronary angioplastySera Flower Work Phone: Placement of stent in coronary arterySera Flower Work Phone: Repair of shoulderRobfarhad Flower Work Phone: Plan of Treatment DateCare ActivityDetailAuthorStart: 11-60-1574Fqduwedzx for malignant neoplasm of colonNOMS HealthcareStart: 14-60-4410Eftqj panelLipid PanelUnWadsworth-Rittman Hospital: 44-57-1622EFwZ/Tdap/Td Vaccines (2 - Td or Tdap) DTaP/Tdap/Td Vaccines (2 - Td or Tdap)[facility]: 03-30-2025 End: 65-09-8772Jkohyqe encounter /03/2025 9:15 AM EST Office Visit [facility] [address] [place] [address] Sera Flower MD [address] [place] [address] NOMS [facility] IMStart: 03-23-2025 End: 62-83-1085BDJ W Auto Differential panel - BloodCBC and differential Lab Routine Essential hypertension (CMS/HCC) Expected: 03/23/2025 (Approximate), Expires: 09/19/2025[facility] Work Phone: Comment on above:Expected: 03/23/2025 (Approximate), Expires: 09/19/2025Start: 03-23-2025 End: 51-39-9208Dbmdlplxhikin metabolic 2000 panel - Serum or PlasmaComprehensive metabolic panel Lab Routine Essential hypertension (CMS/HCC) Expected: 03/23/2025 (Approximate), Expires: 09/19/2025[facility] HealthcareComment on above: Expected: 03/23/2025 (Approximate), Expires: 09/19/2025Start: 03-23-2025 End: 78-54-7824Tsvyxehqmz a1c with eagHemoglobin a1c with eag Lab Routine Prediabetes Expected: 03/23/2025 (Approximate), Expires: 09/19/2025[facility] HealthcareComment on above:Expected: 03/23/2025 (Approximate), Expires: 09/19/2025Start: 03-23-2025 End: 39-34-1067Roivu 1996 panel - Serum or PlasmaLipid panel Lab Routine Pure hypercholesterolemia (CMS/HCC) Expected: 03/23/2025 (Approximate), Expires: 09/19/2025NOMS HealthcareComment on above:Expected: 03/23/2025 (Approximate), Expires: 09/19/2025Start: 03-23-2025 End: 98-71-0158Buvleuezyihb/Creatinine panel in random UrineMicroalbumin / creatinine urine ratio Lab Routine Essential hypertension (CMS/HCC) Expected: 03/23/2025 (Approximate), Expires: 09/19/2025NONY HealthcareComment on above: Expected: 03/23/2025 (Approximate), Expires: 09/19/2025Start: 03-23-2025 End: 74-85-4867Vamgtyezgs complete panel - UrineUrinalysis with microscopic Lab Routine Essential hypertension (CMS/HCC) Expected: 03/23/2025 (Approximate), Expires: 09/19/2025NONY HealthcareComment on above:Expected: 03/23/2025 (Approximate), Expires: 09/19/2025Start: 32-09-0770Uysqjidsc vaccination Influenza Vaccine (Season Ended)[facility]: [facility] End: 38-35-2174Aeefaxw encounter mqmxjopcu74/12/2025 10:20 AM EDT Office Visit [address] [phone] Rene Cortez MD [address] [place] [address] [address] [place] [address] [facility] 12-15-2024 End: 85-63-3702Xsifbet encounter xlowkkint55/21/2025 1:50 PM EDT Office Visit [address] [place] [phone] Rene Cortez MD 3 [facility] 2, [address] [place], [place] [id number] [facility]: 11-24-2024 End: 21-33-1540TYS 12 LeadECG 12 Lead ECG Routine Ischemic cardiomyopathy Expected: 11/24/2024 (Approximate), Expires: 10/24/2025[facility] Work Phone: Comment on above:Expected: 11/24/2024 (Approximate), Expires: 10/24/2025Start: 11-24-2024 End: 95-35-0696PY Heart TransthoracicTransthoracic Echo Limited Echocardiography Routine Ischemic cardiomyopathy Expected: 11/24/2024 (Approximate), Expires: 10/24/2026[facility] Service Area Work Phone: Comment on above:Expected: 11/24/2024 (Approximate), Expires: 10/24/2026Start: 10-31-2024 End: 80-71-4577Mughh metabolic 2000 panel - Serum or PlasmaBasic Metabolic Panel Lab Routine Ischemic cardiomyopathy Expected: 10/31/2024 (Approximate), s: 10/24/2025[facility] Work Phone: Comment on above:Expected: 10/31/2024 (Approximate), Expires: 10/24/2025Start: 82-48-2590VmiddirlyProtestant Deaconess Hospital CenterStart: 37-16-1432Vnxekzqg to cardiologistProtestant Deaconess Hospital CenterStart: 12-84-2084Cernycfn admissionProtestant Deaconess Hospital CenterStart: 10-16-2024 [facility] CenterStart: 09-87-3155Qqcrznzcqhg of Left Heart using Low Osmolar ContrastFluoroscopy of Left Heart using Low Osmolar Contrast [facility] CenterStart: 17-30-6044Yrzntasxxjd of Multiple Coronary Arteries using Low Osmolar ContrastFluoroscopy of Multiple Coronary Arteries using Low Osmolar ContrastProtestant Deaconess Hospital CenterStart: 88-85-1256Kqzwbgipoqy of Cardiac Sampling and Pressure, Left Heart, Percutaneous ApproachMeasurement of Cardiac Sampling and Pressure, Left Heart, Percutaneous ApproachProtestant Deaconess Hospital CenterStart: 09-24-2024 End: 24-77-2150Wvbeh metabolic 1998 panel - Serum or PlasmaBasic metabolic panel Lab Routine Chronic systolic (congestive) heart failure Expected: 09/24/2024 ( Approximate), Expires: 12/24/2024NONY HealthcareComment on above:Expected: 09/24/2024 (Approximate), Expires: 12/24/2024Start: 09-24-2024 End: 73-06-3486Seixbsx encounter ijnhkkros19/30/2025 1:30 PM EDT Office Visit [facility] [address] [place] [phone] Sally Mancuso NP [address] [place] [address] [facility] IMStart: 04-25-2025Medicare Annual Wellness (AWV)Medicare Annual Wellness (AWV)[facility] HealthcareStart: 07-17-2024 End: 36-89-8292Didmjui encounter hsyeiakix72/20/2025 10:35 AM EST Office Visit [facility] [address] [place] [phone] Marybeth Long MD [address] [place] [address] Skin lesion of back; Sebaceous cystN[facility]S [facility] Comment on above:Skin lesion of back; Sebaceous cystStart: 05-15-2024 End: 35-08-3720Xsafgmr encounter fuaiwnhbb33/19/2024 9:10 AM EST Office Visit [facility] [address] [facility] [address] [place] [phone] Rene Cortez MD [address] [place] [address] [facility]: 04-25-2024 End: 45-31-9161GB Chest 2 ViewsXR chest 2 views Imaging Routine Pneumonia of right middle lobe due to infectious organism Expected: 04/25/2024, Expires: 02/26/2025[facility] Work Phone: Comment on above:Expected: 04/25/2024, Expires: 02/26/2025Start: 03-26-2024 End: 74-13-0782Kwygozr encounter aaubfxbps72/30/2024 1:00 PM EDT Office Visit [facility] [address] [place] [phone] Sera Flower MD [address] [place] [address] [facility]Start: 51-71-3190KmpouoplnpxilppkLcbsdooadmqhcg [facility]: 02-27-2024 End: 67-92-3947Vdhxfmt encounter nszwehoos66/02/2024 10:45 AM EDT Office Visit [facility] [address] [place] [address] Sally Mancuso NP [address] [place] [address] [facility] IMStart: 34-19-9027XCYHR-19 Vaccine ( season)COVID-19 Vaccine ( season)[facility] Start: 92-23-9917Ayeupvivb vaccinationUnWadsworth-Rittman Hospital: 10-18-2023 End: 47-58-3368Ylqngyz encounter klyhwrcrj26/23/2024 9:30 AM EDT Office Visit [place] [address] [facility] [address] [place] [phone] Rene Cortez MD [address] [place] [address] [facility]: 09-20-2023 End: 27-84-0759Rxzwedi encounter qvqymoobh76/25/2024 1:00 PM EDT Office Visit [facility] [address] [place] [address] Sera Flower MD [address] [place] [address] [facility] IMStart: 03-23-2023 End: 58-64-4104Zifuwig aminotransferase [Enzymatic activity/volume] in Serum or Plasma by With P-5'-PAlanine Aminotransferase Lab Routine Coronary artery disease involving [place] coronary artery of [place] heart without angina pectoris Essential hypertension Mixed hyperlipidemia Ischemic cardiomyopathy Status post coronary artery stent placement Class 2 obesity with body mass index (BMI) of 35.0 to35.9 in adult, unspecified obesity type, unspecified whether serious comorbidity present Expected: 03/23/2023 (Approximate), Expires: 03/23/2024 [facility] Work Phone: Comment on above:Expected: 03/23/2023 (Approximate), Expires: 03/23/2024Start: 03-23-2023 End: 23-90-6566Zndqwqpza aminotransferase [Enzymatic activity/volume] in Serum or Plasma by With P-5'-PAspartate Aminotransferase Lab Routine Coronary artery disease involving [place] coronary artery of [place] heart without angina pectoris Essential hypertension Mixed hyperlipidemia Ischemic cardiomyopathy Status post coronary artery stent placement Class 2 obesity with body mass index (BMI) of 35.0 to 35.9 in adult, unspecified obesity type, unspecified whether serious comorbidity present Expected: 03/23/2023 (Approximate), Expires: 03/23/2024 [facility] Work Phone: Comment on above:Expected: 03/23/2023 (Approximate), Expires: 03/23/2024Start: 03-23-2023 End: 65-18-9391Hbhpw metabolic 2000 panel - Serum or PlasmaBasic Metabolic Panel Lab Routine Coronary artery disease involving [place] coronary artery of [place] heart without angina pectoris Essential hypertension Mixed hyperlipidemia Ischemic cardiomyopathy Status post coronary artery stent placement Class 2 obesity with body mass index (BMI) of 35.0 to 35.9 in adult, unspecified obesity type, unspecified whether serious comorbidity present Expected: 03/23/2023 (Approximate), Expires: 03/23/2024[facility] Work Phone: Comment on above:Expected: 03/23/2023 (Approximate), Expires: 03/23/2024Start: 03-23-2023 End: 21-89-5442ETQ panel - Blood by Automated countCBC Lab Routine Coronary artery disease involving [place] coronary artery of [place] heart without angina pectoris Essential hypertension Mixed hyperlipidemia Ischemic cardiomyopathy Status post coronary artery stent placement Class 2 obesity with body mass index (BMI) of 35.0 to 35.9 in adult, unspecified obesity type, unspecified whether serious comorbidity present Expected: 03/23/2023 (Approximate), Expires: 03/23/2024[facility] Work Phone: Comment on above:Expected: 03/23/2023 (Approximate), Expires: 03/23/2024Start: 03-23-2023 End: 35-10-5062Msiuh 1996 panel - Serum or PlasmaLipid Panel Lab Routine Coronary artery disease involving [place] coronary artery of [place] heart without angina pectoris Essential hypertension Mixed hyperlipidemia Ischemic cardiomyopathy Status post coronary artery stent placement Class 2 obesity with body mass index (BMI) of 35.0 to 35.9 in adult, unspecified obesity type, unspecified whether serious comorbidity present Expected: 03/23/2023 (Ap proximate), Expires: 03/23/2024[facility] Work Phone: Comment on above:Expected: 03/23/2023 (Approximate), Expires: 03/23/2024Start: 79-84-9838QYC, Provider: Rene Cortez, Status: Pen, Time: 9:20 AMFUV, Provider: Rene Cortez, Status: Pen, Time: 9:20 AM XZ-Eqvqzbyoll-Hnpirdfg 250 DO Work Phone: Start: 57-09-9880GJSSO-19 Vaccine ( season) COVID-19 Vaccine ( season)[facility] CenterStart: 30-34-0518Axnxbgxpe vaccinationBrecksville VA / Crille Hospitaltart: 55-94-8609RXR, Provider: Rene Cortez, Status: Pen, Time: 8:30 AMFUV, Provider: Rene Cortez, Status: Pen, Time: 8:30 AM-[facility] 250 DO Work Phone: Start: 03-08-2023Medicare Annual Wellness Visit Medicare Annual Wellness Visit (AWV)[facility]: 76-30-3030HZFMXXJ DIRECTIVE DISCUSSIONADVANCE DIRECTIVE DISCUSSIONBrecksville VA / Crille Hospitaltart: 09-24-7106HULBOGRHID ASSESSMENTDEPRESSION ASSESSMENTBrecksville VA / Crille Hospitaltart: 72-83-8623Uylbnrnwb vaccinationINFLUENZA (#1)[facility]: 18-99-2598JPJNADT DIRECTIVE DISCUSSIONADVANCE DIRECTIVE DISCUSSIONBrecksville VA / Crille Hospitaltart: 97-37-2037YOVTXIMBAD ASSESSMENTDEPRESSION ASSESSMENTBrecksville VA / Crille Hospitaltart: 55-66-2883Lllchnonl aortic aneurysm screeningAbdominal Aortic Aneurysm (AAA) ScreeningUniversity Hospitals Portage Medical Center: 2018 PNEUMOCOCCAL: 65+ (1 - PCV)PNEUMOCOCCAL: 65+ (1 - PCV)[facility]: 31-81-0000Lnyalo Vaccines (2 of 3)Zoster Vaccines (2 of 3)[facility]: 52-72-9181AZJ High Risk: (Elderly (60+) or Population) (1 - Risk 60-74 years 1-dose series)RSV High Risk: (Elderly (60+) or Population) (1 - Risk 60-74 years 1-dose series)[facility]: 37-73-1703KVT patients and/or patients aged 60+ years (1 - 1-dose 60+ series)RSV patients and/or patients aged 60+ years (1 - 1-dose 60+ series)[facility]: 96-86-7053BQFRGIPU VACCINE (1 of 2)SHINGRIX VACCINE (1 of 2)[facility]: 1998 COLOGUARD (FIT-DNA)COLOGUARD (FIT-DNA)[facility]: 1998 ColonoscopyCOLONOSCOPYBrecksville VA / Cr[facility] Hospitaltart: 83-62-2475EACCZQRZOV CANCER SCREENINGCOLORECTAL CANCER SCREENINGBrecksville VA / Cr[facility] Hospitaltart: 13-83-4741OA COLONOGRAPHYCT COLONOGRAPHYCleChillicothe Hospitaltart: 49-34-2534PUCCBKPE SCREEN DIABETES SCREENBrecksville VA / Crille Hospitaltart: 47-61-4954BDVTO OCCULT BLOODFECAL OCCULT BLOODBrecksville VA / Crille Hospitaltart: 79-23-8788KBHHDHUAMXSZLTOGMCJKRUVCNGLyanlvcxi Clinic Start: 28-42-3230BRKHX SCREENLIPID SCREENBrecksville VA / Crille Hospitaltart: 75-15-5821Ptgok microalbumin profileDTAP,TDAP,TD (1 - Tdap)[facility]: 1971 Diabetes mellitus screeningDiabetes ScreeningTogus VA Medical Center Start: 05-40-5991QPPOZDQOY C SCREENINGHEPATITIS C SCREENINGAshtabula [facility] Start: 70-24-6370Vvsqtxscg C screeningHepatitis C ScreeningUniversity Hospitals [facility]: 34-41-3582FMMVU-19 VACCINE (#1)COVID-19 VACCINE (#1)[facility]: 15-64-9465Azysnxcqxj measurementCreatinine [facility]: 57-34-2098Royhh panelLipid PanelUniversity Hospitals Portage Medical Center: 1953Medicare Annual Wellness VisitMedicare Annual Wellness Visit (AWV)[facility]: 1955 Potassium measurementPotassium [facility]: 88-76-0009Joynodzio for malignant neoplasm of colonTogus VA Medical CenterBasic metabolic 1998 panel - Serum or PlasmaBasic metabolic panel Lab Routine Hyponatremia Essential hypertension (CMS/HCC) Ordered: 02/27/2024[facility] HealthcareComment on above:Ordered: 02/27/2024LOOD CULTURE 1BLOOD CULTURE 1 Lab Routine 02/15/2024 4:07 PM EDTNOMS HealthcareBLOOD CULTURE 1BLOOD CULTURE 1 Lab Routine 02/17/2024 10:40 AM EDTNOMS HealthcareBLOOD CULTURE 2BLOOD CULTURE 2 Lab Routine 02/15/2024 4:14 PM EDTNOMS HealthcareBLOOD CULTURE 2BLOOD CULTURE 2 Lab Routine 02/17/2024 11:00 AM EDTNONY HealthcareLOWER RESPIRATORY CULTURELOWER RESPIRATORY CULTURE Lab Routine 02/18/2024 7:25 AM [facility] Healthcare Work Phone: End: 25-04-6214Cuj brain brain stem w/o w/contrast materialMRI BRAIN WO/W IVCON Radiology Routine Paralytic strabismus 1 Occurrences starting 06/21/2022 until 07/21/2023[facility] Work Phone: Comment on above:1 Occurrences starting 06/21/2022 until 07/21/2023 End: 55-26-8154Flc orbit face & neck w/o & w/contrast matrlMRI SOFT TISSUE NECK WO/W IVCON Radiology Routine 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 until 07/21/2023[facility] Work Phone: Comment on above:1 Occurrences starting 06/21/2022 until 07/21/2023atient EducationProtestant Deaconess Hospital Ctr Work Phone: Patient referralProtestant Deaconess Hospital Ctr Work Phone: PSA, total and freePSA, total and free Lab Routine Benign prostatic hyperplasia without urinary obstruction Ordered: 02/27/2024[facility] Work Phone: Comment on above:Ordered: 02/27/2024[facility] Immunizations Immunization DateImmunizationNotesCare JjatnowbYbtfdkcx01-70-9756Mbqtaaxv trivalent influenza vaccine, adjuvanted, preservative freeSera Flower Work Phone: [phone]-MykfiRod[place] [address] DO Work Phone: [phone] virus vaccine, unspecified formulationRene Cortez MD Work Phone: [facility]y11-01-2019influenza virus vaccine, unspecified formulationSera Jimenez CAPNIA Work Phone: [phone]-OljqdRed Wing [facility] 250 DO Work Phone: [phone] virus vaccine, unspecified formulationM[facility] Health [facility] Campusy03-22-2019influenza, injectable, quadrivalent, preservative freeDonna Richmond ELECTROTYPER-PASTORAL WORKER Work Phone: [facility] Work Phone: [phone], seasonal, injectable, preservative freeSera Jimenez Baker Work Phone: [phone]-EqteiRodney [place] [address] DO Work Phone: [phone]zar conjugate vaccine, 13 valent Sera Jimenez Baker Work Phone: [phone]-GzpjhRodney [place] [address] DO Work Phone: [phone]rtix polysaccharide vaccine, 23 valentRmartha Jimenez Baker Work Phone: [phone]-QivqyRodney [place] [address] DO Work Phone: [phone] toxoid, reduced diphtheria toxoid, and acellular pertussis vaccine, adsorbedCarroll County Memorial Hospital Work Phone: [phone]-EwejcRodney [place] [address] DO Work Phone: [phone]w, injectable, quadrivalent, preservative Adelsoonna Richmond ELECTROTYPER-PASTORAL WORKER Work Phone: [facility] Work Phone: [phone] vaccine, liveRflaget memorial hospitaldavid Jimenez Baker Work Phone: [phone]-MbxwbRodney [place] [address] DO Work Phone: [phone], seasonal, injectable, preservative freeDonna Richmond ELECTROTYPER-PASTORAL WORKER Work Phone: [facility] Work Phone: [phone]s, seasonal, injectable, preservative freeDonna Richmond ELECTROTYPER-PASTORAL WORKER Work Phone: [facility] Work Phone: [phone]uwt, seasonal, injectable, preservative Adelsojany Richmond ELECTROTYPER-PASTORAL WORKER Work Phone: [facility] Work Phone: [phone]xd virus vaccine, unspecified formulationKiya Richmond ELECTROTYPER-PASTORAL WORKER Work Phone: [facility] Work Phone: [phone] polysaccharide vaccine, 23 valentRobert L Hill Work Phone: [phone]-FwomfSt. [facility]'s [facility]-[place] 250 DO Work Phone: [phone]frb vaccine, unspecified formulationHosea Carmener DO Work Phone: noSaint Luke's [facility] Hospital–Barry RoadGujmtlysgd15-91-6390kkfpemzyp virus vaccine, unspecified formulationKiya Richmond ELECTROTYPER-PASTORAL WORKER Work Phone: [facility] Work Phone: [phone]w virus vaccine, unspecified formulationKiya Richmond ELECTROTYPER-PASTORAL WORKER Work Phone: [facility] Work Phone: [phone]bvkcja virus vaccine, unspecified formulationRene Cortez MD Work Phone: [facility] Work Phone: [phone]nuc virus vaccine, unspecified formulationKiya Richmond ELECTROTYPER-PASTORAL WORKER Work Phone: [facility] Work Phone: [phone]myxln, seasonal, injectable, preservative Jimena Cortez MD Work Phone: [facility] Work Phone: [phone](adult) unspecified formulation; Translations: [Td(adult) unspecified formulation]Hosea Snyder DO Work Phone: noSaint Luke's North Hospital–Barry RoadZgfaamicro45-08-8604isiynsj toxoid, unspecified formulationKiya Richmond ELECTROTYPER-PASTORAL WORKER Work Phone: [facility] Work Phone: influenza virus vaccine, unspecified formulationSera Flower Work Phone: [phone]-Schdo [facility] 250 DO Work Phone: Comment on above:Mar Payers DatePayer CategoryPayerPolicy [id number] of Defense ( and others)[id number] of Defense ( and others)[id number]-gjl [id number]etqs Health Insurance 1.2.840.829958.1.13.693.2.7.3.143856.42114-15-0282ETMPTZQ () 1.2.840.755091.1.13.693.2.7.9.988675.926291.37374-72-9937Hbptbcgarl of Defense ( and others)1.2.840.025837.1.13.647.2.7.3.249044.315 2023Medicare (Managed Care)1.2.840.401236.1.13.693.2.7.9.987076.531761.14003-90-8266ZDFMCLO For Life (TFL)1.2.840.621033.1.13.647.2.7.9.426784.877734.90808-51-4083 Department of Defense ( and others)[id number] 2022 Department of Defense ( and others)[id number] Medicare1.2.840.588294.1.13.159.2.7.3.013884.315 [id number] [id number] 2.16.840.1.571634.3.579.2.96122-89-0142Qirzdoi [id number] 2.16.840.1.143658.3.579.[id number] 2.16.840.1.389947.3.579.2.229593-83-5576Jxbbmmc59822627 2.16.840.1.354545.3.579.2.171795-43-9918Qothcrc6902990 2.16840.1.799875.3.579.2.675268-73-6474Okfkckn0975646 2.16.840.1.333458.3.579.2.945151-28-9112Vwntrgd1013410 2.16.840.1.842206.3.579.2.735445-32-7597Txfujos2406720 2.16840.1.427842.3.579.2.222133-34-4172Ynmykce3238304 2.16840.1.851757.3.579.2.430950-99-0782Bdunwsm0233523 2.16.840.1.734040.3.579.2.760993-92-7905Dscskjv2994528 2.16.840.1.603749.3.579.2.284761-08-8239Elipweb116671578 2.16.840.1.460563.3.579.2.185372-34-9428Cbdfmvl385006207 2.16840.1.206604.3.579.2.753180-21-7049Ozuczvz35092678 2.16.840.1.443658.3.579.2.10885-24-8574Vkdjoip08250191 2.16840.1.927087.3.579.2.33198-98-4173Djfipyd72428831 2.160.1.727704.3.579.2.67708-04-5497Uvmeijg21062810 2.16840.1.095727.3.579.2.35765-10-1325Ufmpiyw23166971 2..1.887509.3.579.2.86134-17-2847Xzsxdja15275833 2.0.1.980720.3.579.2.98363-52-1666Kulmcxl85226886 2.0.1.468740.3.579.2.00269-07-4891Idcgzyr86013238 2.0.1.814771.3.579.2.88128-40-4168Rlbteht97939852 2..1.606158.3.579.2.55987-98-3204Vkjjnuq53748860 2..1.506469.3.579.2.24192-35-9261Oidabld76465445 2.0.1.897879.3.579.2.19040-96-0812Ppfnrse15425223 2.0.1.356431.3.579.2.838Mrykheo83593065 2.840.1.959897.3.579.2.531 Xcfkwuc27239556 2.840.1.742674.3.579.2.417Cstzgyn60497163 2.840.1.021066.3.579.2.531 Social History DateTypeDetailFacilityStart: 03-23-2023 End: 26-55-8788Rg alcohol useNo alcohol useNOMS HealthcareComment on above:5 CUPS OF COFFEE DAILY;QUIT IN 1984;Start: 05-01-2022 End: 13-86-8759Zizdbqj smoking status NHISNever smoked tobaccoAshtabula General Hospital Start: 05-01-2022 End: 65-50-8297Jjvfgbr use and exposureSmokeless tobacco non-userBrecksville VA [facility]ille Hospitaltart: 05-01-2022 End: 99-34-0859Ynlwiuf intakeEx-drinker (finding)[facility]: 12-48-7325Lzu Assigned At BirthNot on fileBrecksville VA / Crille Hospitaltart: 10-15-2020 End: 85-53-0899Hhnppxr smoking status NHISEx-smoker (finding)[facility]: 52-26-7448Lhh Assigned At [facility] End: 07-42-9623Cvptcfn of tobacco useCurrent smokerUnGrand Lake Joint [facility] District Memorial Hospital Work Phone: End: 69-92-8669Fybnscx of tobacco useCigarette SmokerUnGrand Lake Joint [facility] District Memorial Hospital Work Phone: Start: 03-23-2023 End: 23-67-1074Glttusx intakeLifetime non-drinker (finding)[facility] Work Phone: Start: 03-23-2023 End: 47-33-6421Gzesduu use panelNOMS HealthcareStart: 03-13-2023 End: 58-19-2755Xljbutaq to SARS-CoV-2 (event)Not sureUnGrand Lake Joint Township District Memorial HospitalStart: 46-80-8163Xnrhgab Commentcaffeine: coffee 5-6 cups a dayNOMS HealthcareStart: 27-11-7317Btuucu identityIdentifies as male gender (finding) [facility] HealthcareStart: 72-71-0235Eieyyga smoking statusNeverExecutive Urology of St[facility] SanduskyStart: 10-18-2024 End: 89-01-9277AsxJbbl (finding)[facility]: 71-11-1707RUKR Follow upSDOH [facility] upWood [facility] Work Phone: Sexual OrientationExecutive Urology of [facility] Goals DatePatient GoalDesired Activity/State Functional Status QgesZuwdujffhwVmpqzdHpelckcq07-93-2274Tiofekxgbi statusPatient at Baseline [facility] Work Phone: [phone] 604-22810954748-94-2280Tgwtldz Health Questionnaire 2 item (PHQ-2) [Reported][facility] CenterTjcltinwwk69-35-3572Xolhucttbh StatusN/AFSt. [facility]'s [facility]01-27-2025Functional StatusN/AExecutive Urology of [place] 146352-02-2024Functional StatusN/AExecutive Urology of [place] 146351-20-2024Functional StatusN/AExecutive Urology of [place] 146350-30-2024Patient Health Questionnaire 2 item (PHQ-2) [Reported][facility] Mental Status QnxqHcfqvnvuuvXswomwVjpzfryw86-38-1113Cwoaoomry functionCognitive Status Patient at BaselineWood [facility] Work Phone: Clinical Notes 05-01-2022 to 03-16-2025 Note Date & WvlhFshjTlwmthyu18-37-2489 [facility] Chief Complaint: [...] medical history of CHF (congestive heart failure) ([facility]), COPD (chronic obstructive pulmonary disease) ([facility]), Coronary artery disease, GERD (gastroesophageal reflux disease), [...] SGLT2 inhibitor and spironolactone (more content not included)...[facility]07-15-2025 Note [facility] Cardiology Clinic Note Chief Complaint: Establish care [...] medical history of CHF (congestive heart failure) ([facility]), COPD (chronic obstructive pulmonary disease) ([facility]), Coronary artery disease, GERD (gastroesophageal reflux disease), [...] for this visit: Coronary artery disease involving [place] coronary artery of [place] heart without angina pectoris (Primary) Comments: S/p PCI to LAD and mid/distal RCA 2009. Recent coronary angiogram September/2024 revealed patent the stent with totally occluded ramus and PLV branch of RCA Orders: - metoprolol succinate XL (Toprol-XL) 25 mg 24 hr tablet; Take 0.5 tablets (12.5 mg) by mouth once daily as directed. Do not crush or chew. (more content not included)...[facility]07-08-2025 Hospital Discharge instructions Patient Education 12/02/2024 [...] urethra. Follow these instructions at home: Take wbqw-shn-rnagkzi and prescription medicines only as told by [...] provider. Document Revised: 11/30/2021 Document Reviewed: 11/30/2021 [employer] Patient Education 2023 [employer]. Follow Up Care 08/26/2024 08:43:50 With:BENNY SHELLEY, John Hauser, URL Address: [address] [place] [address]- When: Unknown Comments:6 mos w/ PSA and PVR [facility] [place] 127777-13-8595 NotePatient Education Urology Benign Prostatic Hyperplasia Benign [...] Follow these instructions at home: ??? Take jvxj-gik-wmjurzo and prescription medicines only as told by [...] symptoms do not get (more content not included)...[facility]05-30-2025 History of Present illness Narrative* Kiya Richmond APRN-PASTORAL WORKER - 10/24/2024 10:00 AM EDT Chief Complaint [...] September 2024 had a 7-day hospitalization at [facility] due to pneumonia, sepsis. Although I do not have a report, there is documentation that echo showed LVEF of 25% with global hypokinesis. Believe he was treated for acute decompensated heart failure. He was then transferred to [facility] and seen by Dr. Davis. A August 17, 2024 cardiac cath showed a patent LAD and diagonal stenting, ramus occluded, mid/distal RCA patent stent, PLV occluded. LVEF 20%. At time of discharge she was to be placed on Entresto, Aldactone, Farxiga and increased dose carvedilol, Lasix. reports that he was only home for approximately 4 hours and he returned back to [facility] as of breath, he was hospitalized [...] times daily omega-3 fatty acids-fish oil (One-Per-Day [place]-3) 684-1,200 mg capsule Take as directed omeprazole [...] & reported 25% with global hypokinesis at [facility] (no reports). Prior February 2023 TTE [...] day of office visit Kiya Richmond MSN, WILLIAN-PASTORAL WORKER, PMHNP-[facility] [place], [place] Please excuse any errors in grammar or translation related to this dictation. Voice recognition software was utilized to prepare this document. documented in this [facility] Work Phone: 1(699) 925-156605-30-2025 Instructions* Patient Instructions* NABIL Garcia - 10/24/2024 [...] day of office visit documented in this [facility] Work Phone: 1(425) 805-234005-24-2025 Progress note Author Charito Rodriguez [facility] HospitalNote Date/TimeMay 2024 1:[address]pm[address] [address] Cardiology Progress Note Signed Patient: Demarcus Calderon MR#: [id number] : 1955 Acct:[id number] Age/Sex: 69 / M Adm Date: 5 Loc: Room: [address] [place] [address] Type: ADM IN Attending Dr: Vincenzo Caraballo [...] Code(s): I25.10 - Atherosclerotic heart disease of [place] coronary artery without angina pectoris Plan 1. Result of heart cath noted and reviewed with patient 2. Gradually uptitrate guideline directed therapy for heart failure and consideration for outpatient AICD 3. Patient can be discharged home Documented By: Charito Rodriguez MD 10/18/24 1352 Signed By: <Electronically signed by MD Charito Rodriguez> 10/18/24 1353 [facility] Work Phone: 1(762) 871-539605-24-2025 [place] [address] Cardiology Progress Note Signed Patient: Demarcus Calderon MR#: [id number] : 1955 Acct:[id number] Age/Sex: 69 / M Adm Date: 5 Loc: Room: [address] [place] [address] Type: ADM IN Attending Dr: Vincenzo Caraballo [...] Code(s): I25.10 - Atherosclerotic heart disease of [place] coronary artery without angina pectoris Plan 1. Result of heart cath noted and reviewed with patient 2. Gradually uptitrate guideline directed therapy for heart failure and consideration for outpatient AICD 3. Patient can be discharged home Documented By: Charito Rodriguez MD 10/18/24 1352 Signed By: 10/18/24 1353 [facility]05-23[facility] Progress note Author Vincenzo Caraballo [facility] HospitalNote Date/TimeMay 2024 3:24[place] [address] Hospitalist Progress Note Signed Patient: Demarcus Calderon MR#: [id number] : 1955 Acct:[id number] Age/Sex: 69 / M Adm Date: 5 Loc: 4 Room: [address] [place] [address] Type: ADM IN Attending Dr: Vincenzo Caraballo DO Copies to: ~ Date of Service: 10/17/2024 Subjective Subjective Narrative: Seen and evaluated this morning, is present at bedside. Was initially reviewing his hospitalization from [place] when unfortunately I was called out of [...] spray 10/17/24 09:00 10/17/24 10:26 Fluticasone Propionate [place] 120 [place]/16 Gm Bottle INTRANASAL 10/17/25 08:59 Not Given [...] 0.4 Mg Cap.Er.24h PO 10/17/25 21:59 QHS [facility] A&P - Hospitalist Assessment/Plan (1) Acute on chronic systolic (congestive) heart failure: Plan: ? Continue diuresis which was started at [facility] ? Lasix 40 m IV push twice daily ? Daily weights ? Strict I's and O's ? Patient was transferred here from [facility] for cardiology valuation ? Echocardiogram at [facility] shows ejection fraction of 25% ? Maintain [...] has received 7 days of antibiotics at [place], - Will defer antibiotics for now Acute hypoxic respiratory failure- likely due to CHF - Continue oxygen as needed, keep Spo2 > 90% Chronic conditions COPD HTN CAD HLD DVT PPx?SCDs Diet order?heart healthy, n.p.o. midnight CODE STATUS?full code Documented By: Vincenzo Caraballo DO 10/17/24 1521 Signed By: <Electronically signed by Vincenzo Caraballo DO> 10/17/24 1524 [facility] Work Phone: 1(709) 551-829105-23-2025 [place] [address] Cardiac Catheterization Note Signed Patient: Demarcus Calderon MR#: [id number] : 1955 Acct:[id number] Age/Sex: 69 / M Adm Date: 5 Loc: Room: [address] [place] [address] Type: ADM IN Attending Dr: Vincenzo Caraballo [...] with a single arterial puncture technique, a5 Belarusian slender sheath was introduced to the right radial artery over guidewirewithout any complications. Next, preformed 5 Belarusian JL 3.5 and JR4 diagnostic catheters were [...] PDA branch; PLV branch is occluded with mewh-pb-ztshn collaterals PDA-RT -% Stenosis: 0 PLV-RT -% [...] DO 10/17/24 1550 Signed By: 10/17/24 1558 [facility]05-23-2025 Consult note Author Keila Davis [facility] HospitalNote Date/TimeMay 2024 1:50[place] [address] Cardiology Consult Note Signed Patient: Demarcus Calderon MR#: [id number] : 1955 Acct:[id number] Age/Sex: 69 / M Adm Date: 5 Loc: 4 Room: [id number] Type: ADM IN Attending Dr: Vincenzo Caraballo DO Copies to: MD Vincenzo Sam, DO Keila Davis DO~ Cardiology HPI History of Present Illness Consult Date: 10/17/24 Reason for Consult: Acute HFrEF, ischemic cardiomyopathy, ASHD, history of two-vessel PCI's, pneumonia HPI: Mr. Calderon is a 69 year old male seen in cardiology consultation at request of Dr. Pate at [facility] and hospitalist at [facility] and patient wastransferred for further cardiovascular evaluation and management. He was hospitalized for the past 7 days at [place] with pneumonia additionally heartfailure, found to have [...] medical/interventional therapies going forward; patient agrees toproceed [facility] Medical History (Updated 10/17/24 @ 13:50 [...] x10E3/uL Lymph # (Auto) 2.4 (1.00-4.8) x10E3/uL [place] # (Auto) 1.1 H (0.0-0.8) x10E3/uL Eos [...] Code(s): I25.10 - Atherosclerotic heart disease of [place] coronary artery without angina pectoris Plan New onset severe ischemic cardiomyopathy, proceed with left heart catheterization Documented By: Keila Davis DO 10/17/24 1343 Signed By: <Electronically signed by Keila Davis DO> 10/17/24 1350 [facility] Work Phone: 1([phone]) 909-940805-23-2025 [place] [address] Hospitalist Progress Note Signed Patient: Demarcus Calderon MR#: [id number] : 1955 Acct:[id number] Age/Sex: 69 / M Adm Date: 5 Loc: 4 Room: [address] [place] [address] Type: ADM IN Attending Dr: Vincenzo Caraballo DO Copies to: ~ Date of Service: 10/17/2024 Subjective Subjective Narrative: Seen and evaluated this morning, is present at bedside. Was initially reviewing his hospitalization from [place] when unfortunately I was called out of [...] spray 10/17/24 09:00 10/17/24 10:26 Fluticasone Propionate [place] 120 [place]/16 Gm Bottle INTRANASAL 10/17/25 08:59 Not Given [...] ? Continue diuresis which was started at [facility] ? Lasix 40 m IV push twice daily ? Daily weights ? Strict I's and O's ? Patient was transferred here from [facility] for cardiology valuation ? Echocardiogram at [facility] shows ejection fraction of 25% ? Maintain [...] has received 7 days of antibiotics at [place], - Will defer antibiotics for now Acute hypoxic respiratory failure- likely due to CHF - Continue oxygen as needed, keep Spo2 > 90% Chronic conditions COPD HTN CAD HLD DVT PPx?SCDs Diet order?heart healthy, n.p.o. midnight CODE STATUS?full code Documented By: Vincenzo Caraballo DO 10/17/24 1521 Signed By: 10/17/24 1524 [facility]05-23-[address] [place] [address] Cardiology Consult Note Signed Patient: Demarcus Calderon MR#: [id number] : 1955 Acct:[id number] Age/Sex: 69 / M Adm Date: 5 Loc: 4 Room: 4V4526-5 Type: ADM IN Attending Dr: Vincenzo Caraballo DO Copies to: MD Vincenzo Sam DO W Scott Sheldon, DO~ Cardiology HPI History of Present Illness Consult Date: 10/17/24 Reason for Consult: Acute HFrEF, ischemic cardiomyopathy, ASHD, history of two-vessel PCI's, pneumonia HPI: Mr. Calderon is a 69 year old male seen in cardiology consultation at request of Dr. Pate at [facility] and hospitalist at [facility] and patient wastransferred for further cardiovascular evaluation and management. He was hospitalized for the past 7 days at [place] with pneumonia additionally heartfailure, found to have [...] medical/interventional therapies going forward; patient agrees toproceed [facility] Medical History (Updated 10/17/24 @ 13:50 [...] x10E3/uL Lymph # (Auto) 2.4 (1.00-4.8) x10E3/uL [place] # (Auto) 1.1 H (0.0-0.8) x10E3/uL Eos [...] Code(s): I25.10 - Atherosclerotic heart disease of [place] coronary artery without angina pectoris Plan New onset severe ischemic cardiomyopathy, proceed with left heart catheterization Documented By: Keila Davis DO 10/17/24 1343 Signed By: 10/17/24 1350 [facility]05-23-2025 History and physical note Author Tootie Richmond [facility] HospitalNote Date/TimeMay 2024 2:47[place] [id number] Hospitalist H&P Signed with Addenda Patient: Demarcus Calderon MR#: [id number] : 1955 Acct:[id number] Age/Sex: 69 / M Adm Date: 5 Loc: 4P Room: 2Q5867-4 Type: ADM IN Attending Dr: Ricardo Aguero DO Copies to: DO Tootie Lopes, WILLIAN Flower MD~ ADDENDUM1 Adding on contributor Addendum Documented By: WILLIAN Richmond 10/16/245 Addendum Signed By: <Electronically signed by WILLIAN Richmond> 10/16/242332 <Electronically signed by Ricardo Aguero DO> 10/17/24 0247 HPI DATE OF EXAMINATION: 10/16/24 CHIEF COMPLAINT: heart failure HISTORY OF PRESENT ILLNESS: Mr. Calderon is a 69-year-old male with a PMH of HTN, CHF, COPD, CAD?5 cardiac stents that was transferred here [facility] for exacerbation of congestive heart failure. He states he has been at [facility] since the for shortness of breath and [...] fever or chills. He states that his chick grader is Dr. Jerez. He reports he quit smoking in the s, denies alcohol or illicit drug use. [facility] chart review?patient was admitted to [facility] on 10/09/2024 for exacerbation of COPD, sepsis, [...] unless noted in the HPI or below. [facility] Medical History (Updated 10/16/24 @ 23:13 [...] has received 7 days of antibiotics at [place], - Will defer antibiotics for now Acute [...] By: <Electronically signed by WILLIAN Richmond> 10/16/242331 [facility] Work Phone: 1(139) 973-435105-23-2025 [place] [address] Hospitalist H&P Signed with Addenda Patient: Demarcus Calderon MR#: [id number] : 1955 Acct:[id number] Age/Sex: 69 / M Adm Date: 5 Loc: Room: [address] [place] [address] Type: ADM IN Attending Dr: Ricardo Aguero [...] cardiac stents that was transferred here to [facility] for exacerbation of congestive heart failure. He states he has been at [facility] since the for shortness of breath [...] fever or chills. He states that his chick grader is Dr. Jerez. He reports he quit smoking in the , denies alcohol or illicit drug use. [facility] chart review?patient was admitted to [facility] on 10/09/2024 for exacerbation of COPD, sepsis, [...] unless noted in the HPI or below. [facility] Medical History (Updated 10/16/24 @ 23:13 [...] has received 7 days of antibiotics at [place], - Will defer antibiotics for now Acute [...] of days): 3 Documented By: Tootie Richmond, ELECTROTYPER [id number] Signed By: 10/16/24 2332 [facility]05-22-2025 Evaluation note* Diagnosis Onset Date Resolution Status Admit Date Acute hypoxic respiratory failure acuteMay 2024 9:38pmAcute on chronic systolic (congestive) heart failure acuteMay 2024 9:38pmASHD (arteriosclerotic heart disease)acuteMay 2024 9:38pmCommunity acquired pneumoniaacuteMay 2024 9:38pmHistory of heart artery stentacuteMay 2024 9:38pm [facility] Work Phone: 1(520) 754-350205-22-2025 Evaluation note* Diagnosis Onset Date Resolution Status Admit Date Acute hypoxic respiratory failure resolvedMay 2024 9:38pmAcute on chronic systolic (congestive) heart failureresolvedMay 2024 9:38pmCommunity acquired pneumoniaresolvedMay 2024 9:38pmASHD (arteriosclerotic heart disease)inactiveMa2024 9:38pmHistory of heart artery stentinactiveMay 2024 9:38pm [facility] Work Phone: 1(909) 524-662204-30-2025 History of Present illness Narrative* Sally Mancuso, ROHITH - 09/24/2024 1:30 PM EDT Images from the original note were not included. Demarcus Calderon is a 69 y.o. male presents with chief complaint of 6 Month Follow Up of Chronic Conditions, Medicare Annual Wellness Visit Subsequent, and ER Follow-up ([facility] 09/22/2024 for CHF. He was advised to [...] under the care of Dr. Phoenix, a chick grader, and has resumed his diuretic regimen. - [...] incident. Prediabetes Monitoring Blood work at the NH is scheduled for 10/10/2024. He is not currently on any antidiabetic medications and is monitored for prediabetes, with an A1c of 6.3 in 2023. - Timing: Blood work scheduled for 10/10/2024 for the NH. - Severity: A1c of 6.3 in 2023. PSA Levels Monitoring Dr. Baptiste, a urologist, is monitoring his prostate-specific antigen (PSA) levels, which improved from 6.0 to 2.3 between last year and 03/2024. - Timing: PSA levels improved between last year and 03/2024. - Severity: PSA levels improved from 6.0 to 2.3. Colonoscopy Referral A referral for a colonoscopy at [facility] has been declined, opting to defer the procedure for a year. Medical History and Vaccinations There is no history of chickenpox, but he has had mumps and measles. The shingles vaccine was administered in 2016. Living Will and Power of Order Processing Manager A living will and power of divorce attorney are in place. Resuscitation efforts are [...] Yes Vision Screening: Yes, patient sees regular mailing section clerk/vendette Cognitive Screening Self Assessment: No overt cognitive deficiency is apparent by direct observation Three Word Registration: Banana, [place], Chair Clock Drawing: Normal Clock - 2 Three Word Recall: 2/3 words correct - 2 Total Score (0-5 Points): 4 Pain Assessment Pain Score: 0 - No pain HISTORIES: PAST MEDICAL HISTORY: Past Medical History: Diagnosis Date Asthma BPH (benign prostatic hyperplasia) CAD (coronary artery disease) ([facility]) COPD (chronic obstructive pulmonary disease) ([facility]) Emphysema, unspecified Hypercholesterolemia ([facility]) Hypertensive heart disease SURGICAL HISTORY: Past Surgical [...] 50 MCG/ACT nasal spray 2 sprays, Daily Bvfeacdxuva-Wjwnzrbqm-Qwkrdh (Trelegy Ellipta) 100-62.5-25 MCG/ACT aerosol powder 1 [...] with eag 5. Coronary artery disease involving [place] coronary artery of [place] heart without angina pectoris(CMS/HCC) Doing well. Denies [...] Morbid (severe) obesity due to excess calories (CMS/[facility]) As above. 11. Medicare annual wellness visit, [...] for the above issues. documented in this encounterCameron Regional Medical [id number] NotePatient Education Urology Benign Prostatic Hyperplasia Benign [...] Follow these instructions at home: ??? Take qssf-kts-mqaluds and prescription medicines only as told by [...] symptoms do not get (more content not included)...[facility]03-24-2025 NotePatient Education Urology Benign Prostatic Hyperplasia [...] Follow these instructions at home: ??? Take idnf-ezp-xureoto and prescription medicines only as told by [...] symptoms do not get (more content not included)...[facility]03-14-2025 Hospital Discharge instructions Patient Education 08/08/2024 [...] Up Care 06/23/2024 15:57:15 With:John BAPTISTE Address: [address] [place] [address]- Business (1) When: Unknown Comments:Push the fluids to keep the urine clear. Stay on the Flomax for now.Some discharge instructions have been provided. If the bleeding gets severe, or the catheter is clogging from blood clots, you needto go to the ER for irrigation.Will make a one week appt. to remove the catheter. [facility] 03-14-2025 NotePatient Education Urolift ??? Some [...] not draining urine or is blocked -Bright mitlon red urine that does not stop after 3 days -Unable to urinate after 7-8 hours or bladder feeling full and you can???t urinate -If you have excessive or persistent pain, swelling, bleeding, nausea, vomiting, or any problems, you should first call your surgeon for advice. If you are unable to contact your surgeon, seek help from a hospital emergency room.[facility]03-14-2025 Evaluation + Plan noteExtracted from:Title:EU UroLift 8 Implants- FTAuthor:John BAPTISTE MD PDate:08/08/24 Patient: DEMARCUS CALDERON Age: 69 years Sex: Male : 1955 Associated Diagnoses: None Author: John BAPTISTE MD Procedure Operative Information Details: Date/ Time: 08/08/2024 13:41:00. Pre-Op Dx: Acute urinary retention (XBV66-BW R33.8, Working, Medical), BPH with obstruction/lower urinary tract symptoms (AJR10-AP N40.1, Working, Medical). Post-Op Dx: Same. Anesthesia [...] procedure (10 mg diazepam, 5/325 mg of [place]), Local Anesthesia (60cc 2% Xylocaine liquid inserted [...] Appointments Appointment Date:08/13/2024 12:00:00 PM Scheduled Provider: Location:[facility] Appointment Type:Urology CALL PAT Appointment Date:08/15/2024 08:00:00 AM Scheduled Provider: Location:[facility] KATTY Tejada Appointment Type:URO Nurse Visit [facility] 02-20-2025 History of Present illness Narrative* [...] Erythema intertrigo Pubic, Right Foot - Anterior Ovilla moist plaques. Flaring today Discussed that intertrigo is a chronic condition that can be controlled but not cured. Recommend keeping areas as dry as possible to avoid flares. Start Nystatin powder every day. Start HC 2.5% creamevery day prn itching, hold if not itchy. Notify office if worsening despite treatment. nystatin (Mycostatin) 388506 UNIT/GM powder - Pubic Apply to the affected area on groin area, once daily, 30 day supply hydrocortisone 2.5 % cream - Pubic Apply thin layer to affected areas on groin up once or twice daily prn itching. Hold if not itchy. Next Visit: 3-4 weeks if not improving documented in this encounterCameron Regional Medical [id number] History of Present illness Narrative* Sally Mancuso, ROHITH - 07/02/2024 9:15 AM EST Images from the original note were not included. Demarcus Calderon is a 69 y.o. male presents with chief complaint of ER Follow-up ([facility] 06/29/2024 dx: COPD exacerbation 2ndry viral infection. [...] Flowsheet Row Patient Outreach from 06/30/2024 in [facility] with Orquidea Shah RN Hospital Information ED, Hospital or Assisted Facility Discharge? ED Patient has been contacted within 1 week of being seen in the ED Yes Diagnosis COPD exacerbation secondary to viral infection Discharge Date 06/29/24 Discharged To: Home Setting Discharge Hospital -- [[facility]] Engagement Admission Date 06/29/24 Medications Discharge medications [...] Wrap Up Additional Comments Patient present to [place] ER with a productive cough and runny [...] unspecified (CMS/HCC) Hypercholesterolemia (CMS/HCC) Hypertensive heart disease ([facility]) SURGICAL HISTORY: Past Surgical History: Procedure Laterality [...] 50 MCG/ACT nasal spray 2 sprays, Daily Lfgxxiitiym-Npnljflcf-Cevtyv (Trelegy Ellipta) 100-62.5-25 MCG/ACT aerosol powder 1 [...] a topical cream will be sent to [facility] pharmacy. Follow up if not resolving. - [...] referral to Dermatology; Future documented in this encounterCameron Regional Medical [id number] Hospital Discharge instructions Patient Education 06/23/2024 15:40:46 [...] including vitamins, herbs, eye drops, creams, and lbqw-ecd-bkxipef medicines. Any problems you or family members [...] provider tells you to take them. Taking dbcj-yca-mffjmfg medicines, vitamins, herbs, and supplements. Surgery safety [...] provider. Document Revised: 12/09/2021 Document Reviewed: 12/09/2021 [employer] Patient Education 2023 [employer]. Follow Up Care 04/28/2024 12:25:17 With:BENNY SHELLEY, John Hauser, URL Address: [facility] [place] [address]- When: Unknown [facility] [id number] NotePatient Education Urology Prostatic Urethral Lift Prostatic [...] including vitamins, herbs, eye drops, creams, and nmlr-ism-fhgfdpo medicines. ??? Any problems you or family [...] tells you to take them. ??? Taking dzdh-qyp-viprlcx medicines, vitamins, herbs, and supplements. Surgery safety [...] procedure to relieve symptoms (more content not included)...[facility]12-19-2024 History of Present illness Narrative* Rene [...] , Rfl: omega-3 fatty acids-fish oil (One-Per-Day [place]-3) 684-1,200 mg capsule, Take as directed, Disp: [...] 11 Assessment/Plan 1. Coronary artery disease involving [place] coronary artery of [place] heart without angina pectorisFollow Up In Cardiology [...] exam, discussion and plan. documented in this encounterT[facility] Work Phone: 1(734) 733-970812-19-2024 Instructions* Patient Instructions* Ana Cunningham LPN - [...] on exercise. Follow up documented in this encounterTogus [facility] Work Phone: 1(425) 328-542512-11-2024 History of Present illness Narrative* Gurjit Busby NP - 05/07/2024 5:15 PM EST Images from the original note were not included. [address] , [address] [facility], [address] P: [phone] F: [phone] HPI Historian of HPI: patient Demarcus Calderon [...] PE. IH Testing: Pt was admitted to [facility] for pneumonia in January of [...] nerve stimulation). ?For women, using a medical service representative to prevent urine leaks. This is a [...] right after experiencing incontinence. General instructions Take cnst-ddi-ndkkamy and prescription medicines only as told by [...] important. Where to find more information National [employer] of Diabetes and Digestive and Kidney Diseases: www.niddk.nih.gov [employer] Association: www.urologyhealth.org Contact a health care [...] provider. Document Revised: 12/17/2020 Document Reviewed: 12/17/2020 [employer] Patient Education 2023 [employer]. 04/28/2024 12:02:20 Acute Urinary Retention, Male Acute [...] Follow these instructions at home: Medicines Take rzft-tzt-vuiwovz and prescription medicines only as told by [...] provider. Document Revised: 02/02/2021 Document Reviewed: 02/02/2021 [employer] Patient Education 2023 [employer]. 04/28/2024 12:02:13 Prostate Cancer Screening Prostate Cancer [...] treatment? Where to find more information The [employer] Society: www.cancer.org [employer] Association: www.auanet.org Contact a health care [...] provider. Document Revised: 11/07/2021 Document Reviewed: 11/07/2021 [employer] Patient Education 2023 [employer]. Follow Up Care 04/16/2024 11:10:33 With:SU COOK PA-C, URL Address: [address] [place] [address] When: Unknown [facility] [place] 12-02-2024 NotePatient Education Oncology Prostate [...] Where to find more information ??? The [employer]: www.cancer.org ??? [employer] Association: www.auanet.org Contact a health care [...] men. The prostate gland (more content not included)...[facility]11-20-2024 NoteUrology Office/Clinic Note Chief Complaint new [...] When Contact Information SU COOK PA-C, URL [address] [place] [address] Additional Instructions: f/u in 2 weeks w/ PSA and PVR Patient Education Acute Urinary Retention, Male Benign Prostatic Hyperplasia Prostatitis Problem List/Past Medical History Ongoing Chronic systolic congestive heart f (more content not included)...[facility] HospitalComment on above:Result Comment: Electronically Signed By: SU COOK PA-C\.br\Date and Time Signed: 04/16/2414:04 EST\.br\Electronically Co-Signed By: Tatiana Dyson PA-C\.br\Date and Time Co-Signed: 04/16/2413:22 EST\.br\Electronically Co-Signed By: Tatiana Dyson PA-C\.br\Date and Time Co- Signed: 04/16/2413:24 [id number] Hospital Discharge instructions Patient Education 04/16/2024 11:46:12 [...] Follow these instructions at home: Medicines Take obbu-qao-vjmiygm and prescription medicines only as told by [...] provider. Document Revised: 02/02/2021 Document Reviewed: 02/02/2021 [employer] Patient Education 2023 [employer]. 04/16/2024 11:46:02 Benign Prostatic Hyperplasia Benign Prostatic [...] urethra. Follow these instructions at home: Take qbvh-ptc-vtlavfs and prescription medicines only as told by [...] provider. Document Revised: 11/30/2021 Document Reviewed: 11/30/2021 [employer] Patient Education 2023 [employer]. 04/16/2024 11:46:00 Prostatitis Prostatitis Prostatitis is swelling [...] Follow these instructions at home: Medicines Take vyua-dyo-lczhcud and prescription medicines only as told by [...] important. Where to find more information National [employer] of Diabetes and Digestive and Kidney Diseases: [...] depends on the type of prostatitis. Take tven-kej-pfmegwe and prescription medicines only as told by [...] provider. Document Revised: 03/29/2023 Document Reviewed: 03/29/2023 [employer] Patient Education 2023 [employer]. Follow Up Care 03/06/2024 09:43:54 With:ADRIÁN DELACRUZ, SU Esquivel, URL Address: [address] [place] [address] When: Unknown Comments:f/u in 2 weeks w/ PSA and PVR [facility] [place] [id number] NotePatient Education Infectious Disease Prostatitis Prostatitis is [...] these instructions at home: Medicines ??? Take rmvp-lhj-bylkyqj and prescription medicines only as told by [...] provider. This is important. (more content not included)...[facility]10-30-2024 History of Present illness Narrative* Sera [...] (benign prostatic hyperplasia) CAD (coronary artery disease) ([facility]/HCC) COPD (chronic obstructive pulmonary disease) ([facility]/HCC) Emphysema, unspecified ([facility]/HCC) Hypercholesterolemia ([facility]/HCC) Hypertensive heart disease ([facility]/HCC) SURGICAL HISTORY: Past Surgical History: Procedure [...] 50 MCG/ACT nasal spray 2 sprays, Daily Rowlypcpasi-Rbeifsqji-Izatiw (Trelegy Ellipta) 100-62.5-25 MCG/ACT aerosol powder 1 [...] or concerns. 3. Coronary artery disease involving [place] coronary artery of [place] heart without angina pectoris(CMS/HCC) Doing well. Denies [...] with chief complaint of Hospital Follow-up ([facility] dx: sepsis, COPD, pneumonia) HPI: Patient presented to [facility] ER with complaints of shortness of breath, productive cough and wheezing. CXR showed right lower lobe and middle lobe pneumonia. He was prescribed Prednisone and Cefdinir. He reports to be feeling much better. He does have follow-up scheduled with Dr. Phoenix, jailer/training officer, in April. History of Present Illness The [...] Flowsheet Row Patient Outreach from 02/21/2024 in [facility] with Tootie Jacobson RN Hospital Information Diagnosis Pneumonia, HTN, CHF, Benign prostate hyperplasia without urinary symptoms. Discharged To: Home Setting Discharge Hospital [facility] Engagement Admission Date 02/17/24 Medications [...] nasal spray 2 sprays, Each Nostril, Daily Ksnaqajflpa-Przfpcqqy-Dfzjag (Trelegy Ellipta) 100-62.5-25 MCG/ACT aerosol powder 1 [...] or concerns. 6. Coronary artery disease involving [place] coronary artery of [place] heart without angina pectoris(CMS/HCC) Doing well. Denies any anginal symptoms. Continue aggressive risk factor modification. Continue current medications. Call if any problems. 7. Gastroesophageal reflux disease without esophagitis Stable. Continue current regimen. 8. Benign prostatic hyperplasia without urinary obstruction Stable. Continue current regimen. - PSA, total and free documented in this encounterCameron [facility] Medical [id number] Note Gram Stain Evaluation This specimen is of good quality and is acceptable for routine [facility] [id number] NoteGRAM STAIN EVALUATIONbacterial culture.[facility] [id number] History of Present illness Narrative* Rene Cortez [...] and he continues to follow with the NH. Recent lab data from the NH were provided and reviewed with him. LDL [...] emphasis on low-calorie diet Rene Cortez MD, [facility] Review of Systems All other systems [...] , Rfl: omega-3 fatty acids-fish oil (One-Per-Day [place]-3) 684-1,200 mg capsule, Take as directed, Disp: [...] 3 Assessment/Plan 1. Coronary artery disease involving [place] coronary artery of [place] heart without angina pectorisFollow Up In Cardiology [...] exam, discussion and plan. [facility] Work Phone: 1(727) 334-548005-23-2024 Instructions* Patient Instructions* Ana Cunningham LPN - [...] Follow up 6 months documented in [facility] Work Phone: 1(644) 518-434102-03-2024 History of Present illness Narrative* Hosea Snyder, [...] day x 3 days documented in this encounterCameron Regional Medical [id number] History of Present illness Narrative* Rene Cortez [...] , Rfl: omega-3 fatty acids-fish oil (One-Per-Day [place]-3) 684-1,200 mg capsule, Take as directed, Disp: [...] Rfl: Assessment/Plan 1. Coronary artery disease involving [place] coronary artery of [place] heart without angina pectorisFollow Up In Cardiology [...] Aspartate Aminotransferase Alanine Aminotransferase documented in this encounterT[facility] Work Phone: 1(489) 754-980010-27-2023 Instructions* Patient Instructions* Millie Hoffmann CMA - [...] time of your visit. documented in this encounterT[facility] Work Phone: 1(839) 454-965806-20-2023 NoteHNO ID: [id number] Author: Deandra Bender MD Service: ? Author [...] or facial palsy H/o Botox injections in [place]-->didn't help No h/o trauma H/o sinus surgery [...] can I get the FL-41 filter? Any [facility] location, (with an optical shop), throughout [place], Email: [email or web address] [employer] in [place], [place], [employer] [facility] in [place], [place], [facility] in [place], [place], [employer] in [place], [place], [employer] F/u Botulinum toxin 3 months, Botulinum toxin [...] Deandra Bender MD, November 14, 2022 10:00 AM.[facility]06-20-2023 History of Present illness Narrative* Deandra Bender MD - 11/14/2022 10:00 AM EDT Here for botox Right eye just started twitching Tears as needed. -rofPatient still having twitching right eye and occasionally the left. Refresh tears four times a day. -rof A/P: Right hemifacial spasm x 2 years Patient doesn't remember h/o bells or facial palsy H/o Botox injections in [place]-->didn't help No h/o trauma H/o sinus surgery [...] can I get the FL-41 filter? Any [facility] location, (with an optical shop), throughout [place], Email: [email or web address] [employer] in [place], [place], [employer] [facility] in [place], [place], [facility] in [place], [place], [employer] [facility] in [place], [place], [employer]) F/u Botulinum toxin 3 months, Botulinum toxin [...] 14, 2022 10:00 AM. documented in this encounterAshtabula [facility] Hospital03-14-2023 NoteHNO ID: [id number] Author: Deandra Bender MD Service: ? Author Type: Physician Type: Progress Notes Filed: 08/08/2022 3:09 PM Note Text: Patient still having twitching right eye and occasionally the left. Refresh tears four times a day. -rof A/P: Right hemifacial spasm x 2 years Patient doesn't remember h/o bells or facial palsy H/o Botox injections in [place]-->didn't help No h/o trauma H/o sinus surgery [...] Deandra Bender MD, August 08, 2022 3:05 PM.[facility]03-14-2023 History of Present illness Narrative* Deandra Bender MD - 08/08/2022 3:45 PM EDT Patient still having twitching right eye and occasionally the left. Refresh tears four times a day. -rof A/P: Right hemifacial spasm x 2 years Patient doesn't remember h/o bells or facial palsy H/o Botox injections in [place]-->didn't help No h/o trauma H/o sinus surgery [...] 08, 2022 3:05 PM. documented in this encounterAshtabula General Hospital03-14-2023 Instructions* Patient Instructions* Deandra Bender MD [...] Photodocumentation Recheck next visit documented in this encounterAshtabula General Hospital01-25-2023 Miscellaneous Notes* Telephone Encounter - Orquidea Downs - 06/21/2022 2:03 PM EST Notes and MRI orders faxed to [facility]. * Telephone Encounter - Delores Mccollum - 06/21/2022 12:50 PM EST [facility] called today. : 1955 Allergies: Codeine, Codeine-Guaifenesin, and Guaifenesin (home) [phone] (cell) Reason for call: Sasha F:[phone] Asking for the MRI orders and office notes to be faxed over to [facility]. Patient will be having them done there. Patient last appointment: Visit date not found The patients preferred pharmacy has been captured for this encounter? not asked Delores Mccollum documented in this encounterAshtabula General Hospital01-25-2023 NoteHNO ID: [id number] Author: Deandra Bender MD Service: ? Author Type: Physician Type: Progress Notes Filed: 06/21/2022 9:08 AM Note Text: Twitching right eye x two years. Both upper and lower lid. Trouble reading because of it. +tearing and burning. Refresh four times a day. -rof A/P: Right hemifacial spasm x 2 years Patient doesn't remember h/o bells or facial palsy H/o Botox injections in [place]-->didn't help No h/o trauma H/o sinus surgery [...] Deandra Bender MD, June 21, 2022 9:05 AM.[facility]01-25-2023 Instructions* Patient Instructions* Deandra Bender MD [...] toxin and get MRI documented in this encounterAshtabula General Hospital01-25-2023 History of Present illness Narrative* Deandra Bender MD - 06/21/2022 9:00 AM EST Twitching right eye x two years. Both upper and lower lid. Trouble reading because of it. +tearing and burning. Refresh four times a day. -rof A/P: Right hemifacial spasm x 2 years Patient doesn't remember h/o bells or facial palsy H/o Botox injections in [place]-->didn't help No h/o trauma H/o sinus surgery [...] 21, 2022 9:05 AM. documented in this encounterAshtabula General Hospital12-05-2022 NoteHNO ID: [id number] Author: Mau Randle OD Service: ? Author Type: AGRICULTURAL SERVICE TECHNICIAN Type: Progress Notes Filed: 05/01/2022 9:22 [...] all of its relevant components. Mau Randle ODOhiohealth Shelby Hospital12-05-2022 History of Present illness Narrative* Mau [...] components. Mau Randle, LATASHA documented in this encounterAshtabula [place] [address] Discharge Summary Signed Patient: Demarcus Calderon MR#: [id number] : 1955 Acct:[id number] Age/Sex: 69 / M Adm Date: 5 Loc: 4P Room: [address] [place] [address]: Vincenzo Caraballo DO Copies to: MD Vincenzo Sam, DO~ Providers Date of Admission: 10/16/24 Date of Discharge: 10/17/24 Discharging Provider: Vincenzo Caraballo Primary Care Provider: Sera Flower Consults: 10/16/24 23:19 Consult to Cardiology Routine Comment: Consulting Provider: [facility], [facility] Reason For Exam: acute on chronic [...] likelydue to ischemia. He had been at [facility] approximately 6 to 7 days for fluid overload and pneumonia. He completed treatment of pneumonia. Upon arrival here he was doing well on 1 L nasal cannula, he was made n.p.o., cardiology was consulted and notified of thisconsult. 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 4. ACTIVITY: You are advised to [...] bottle, follow the instructions on the bottle. [facility] is not responsible for incorrect prescription [...] Continuity of Care Document Health Concerns: A [facility] screening has identified you as FRAIL [...] Strong:Four Ways to Beat the Frailty Risk https://www.[facility].org/health/nlpjhjex-pbu-evpmznbisb/st pu-ubkczv-zgde- bmlp-bw-gtgo-wxc-keczncn-gibi Exam Physical Exam Vital Signs: Temp Pulse [...] DO 10/19/24 1403 Signed By: 10/19/24 140 [facility] HospitalDis[facility] summary Author Vincenzo Caraballo [facility] HospitalNote Date/TimeMay 2024 2:07pmCindy [place] [id number] Discharge Summary Signed Patient: Demarcus Calderon MR#: [id number] : 1955 Acct:[id number] Age/Sex: 69 / M Adm Date: 5 Loc: Room: [address] [place] [address]: Vincenzo Caraballo DO Copies to: MD Vincenzo Sam, DO~ Providers Date of Admission: 10/16/24 Date of Discharge: 10/17/24 Discharging Provider: Vincenzo Caraballo Primary Care Provider: Sera Flower Consults: 10/16/24 23:19 Consult to Cardiology Routine Comment: Consulting Provider: [facility] [employer], [facility] Reason For Exam: acute on chronic [...] likelydue to ischemia. He had been at [facility] approximately 6 to 7 days for fluid overload and pneumonia. He completed treatment of pneumonia. Upon arrival here he was doing well on 1 L nasal cannula, he was made n.p.o., cardiology was consulted and notified of thisconsult. 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 4. ACTIVITY: You are advised to [...] bottle, follow the instructions on the bottle. [facility] is not responsible for incorrect prescription [...] Continuity of Care Document Health Concerns: A [facility] screening has identified you as FRAIL [...] Strong:Four Ways to Beat the Frailty Risk https://www.[facility].org/health/lyguigwo-tcg-ihnpyiwvqq/st qh-brtwpj-ypzq- udjx-ea-ykcv-nrj-qhlravf-dmrj Exam Physical Exam Vital Signs: Temp Pulse [...] signed by Vincenzo Caraballo, DO> 10/19/24 1407 [facility] Work Phone: Evaluation + Plan note Future Appointments Appointment Date:04/25/2024 08:30:00 AM Scheduled Provider: Location:[facility] Appointment Type:URO Nurse Visit Appointment Date:04/28/2024 11:20:00 AM Scheduled Provider:SU COOK PA-C Location:[facility] Appointment Type:URO Office Visit [facility] Segopotsoaluation + Plan note Future Appointments Appointment Date:04/28/2024 11:20:00 AM Scheduled Provider:SU COOK PA-C Location:[facility] Appointment Type:URO Office Visit [facility] evaluation + Plan note Future Appointments Appointment Date:06/23/2024 03:00:00 PM Scheduled Provider:John BAPTISTE MD Location:[facility] Appointment Type:URO Procedure 15 min [facility] Evaluation + Plan note Future Appointments Appointment Date:08/13/2024 12:00:00 PM Scheduled Provider: Location:[facility] Appointment Type:Urology CALL PAT FT Appointment Date:08/14/2024 01:30:00 PM Scheduled Provider: Location:[facility] Appointment Type:Urology FT [facility] Evaluation + Plan note Future Appointments Appointment Date:06/02/2025 09:30:00 AM Scheduled Provider: Location:[facility] [place] Appointment Type:URO Nurse Visit Appointment Date:06/09/2025 09:45:00 AM Scheduled Provider:John BAPTISTE MD Location:[facility] K[place]Y [place] Appointment Type:URO Office Visit Future Scheduled Tests Laboratory* PSA Free & Total 06/04/[address] 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 documented in this encounter [facility]* Diagnosis Clonic hemifacial spasm, right- Primary documented in this encounter [facility]* Diagnosis Clonic hemifacial spasm, right- Primary documented in this encounter [facility] HospitalEvalubayhealth [facility] noteNo assessment information availableWood County Hospital Work Phone: Evaluation note* Diagnosis Coronary artery disease involving [place] coronary artery of [place] heart without angina pectoris Essential hypertension Unspecified essential hypertension Mixed hyperlipidemia Ischemic cardiomyopathy Other specified forms of chronic ischemic heart disease Status post coronary artery stent placement Postsurgical percutaneous transluminal coronary angioplasty status Class 2 obesity with body mass index (BMI) of 35.0 to 35.9 in adult, unspecified obesity type, unspecified whether serious comorbidity present documented in [facility] Work Phone: Evaluation note* Diagnosis Acute exacerbation of chronic obstructive pulmonary disease (CMS/HCC)- Primary Obstructive chronic bronchitis with exacerbation documented [facility] encounter [facility]* Diagnosis Coronary artery disease involving [place] coronary artery of [place] heart without angina pectoris- Primary Essential hypertension [...] hazards to health documented in this encounter [facility] Work Phone: Evaluation note* Diagnosis Sepsis, due to unspecified organism, unspecified whether acute organ dysfunction present ([facility])- Primary Pneumonia of right middle lobe due to infectious organism Hyponatremia Hyposmolality and/or hyponatremia Essential hypertension ([facility]/HCC) Unspecified essential hypertension Chronic systolic congestive heart failure (CMS/HCC) Coronary artery disease involving [place] coronary artery of [place] heart without angina pectoris ([facility]) Gastroesophageal reflux disease without esophagitis Esophageal reflux Benign prostatic hyperplasia without urinary obstruction [facility]* Diagnosis Essential hypertension (CMS/HCC)- Primary Unspecified essential hypertension Chronic systolic congestive heart failure (CMS/HCC) Coronary artery disease involving [place] coronary artery of [place] heart without angina pectoris ([facility]/HCC) Chronic obstructive pulmonary disease, unspecified COPD type (CMS/HCC) Pure hypercholesterolemia ([facility]) Pure hypercholesterolemia Prediabetes Other abnormal glucose Elevated PSA Elevated prostate specific antigen (PSA) Benign prostatic hyperplasia without urinary obstruction Bacterial pneumonia Unspecified bacterial pneumonia Sinus drainage Other diseases of nasal cavity and sinuses documented [facility] encounter [facility]* Diagnosis Non-recurrent acute serous otitis media of right ear- Primary documented in this encounter [facility]* Diagnosis Coronary artery disease involving [place] coronary artery of [place] heart without angina pectoris- Primary Essential hypertension Unspecified essential hypertension Ischemic cardiomyopathy Other specified forms of chronic ischemic heart disease Mixed hyperlipidemia Status post coronary artery stent placement Postsurgical percutaneous transluminal coronary angioplasty status Former smoker Personal history of tobacco use, presenting hazards to health BMI 36.0-36.9,adult Class 2 obesity documented in this encounter [facility] Work Phone: Evaluation note* Diagnosis Chronic obstructive pulmonary disease, unspecified COPD type ([facility]/HCC)- Primary Bronchiectasis without complication ([facility]) Rash Rash and other nonspecific skin eruption [...] hypertension (CMS/HCC) Unspecified essential hypertension Pure hypercholesterolemia ([facility]) Pure hypercholesterolemia Chronic systolic (congestive) heart failure Prediabetes Other abnormal glucose Coronary artery disease involving [place] coronary artery of [place] heart without angina pectoris ([facility]/HCC) Severe persistent asthma, uncomplicated (CMS/HCC) Elevated PSA Elevated prostate specific antigen (PSA) BMI 36.0-36.9,adult Morbid (severe) obesity due to excess calories (CMS/HCC) Medicare annual wellness visit, subsequent ACP (advance care planning) Other specified counseling documented in this encounter [facility]* Diagnosis BMI 33.0-33.9,adult- Primary Ischemic cardiomyopathy Other specified forms of chronic ischemic heart disease documented in this encounter [facility] Work Phone: Hospital course Narrative No data available for this section [facility] Hospital Discharge instructions Additional Instructions If your symptoms return/worsen or you develop any further concerns or symptoms please see your doctor or return to the emergency department immediately.[facility] Work Phone: Hospital Discharge instructions No data available for this section [facility] Hospital Discharge instructions Additional Instructions 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 4. ACTIVITY: You are advised to [...] bottle, follow the instructions on the bottle. [facility] is not responsible for incorrect prescription information provided by the patient during their visit. Do not stop your medications without consulting your health care provider. Please take the list with you to your next doctor's appointment.[facility] Work Phone: Progress note No data available for this section [facility] [place] Reason for referral (narrative)* Consultation (Routine) - AuthorizedSpecialtyDiagnoses / ProceduresReferred By ContactReferred To ContactCardiology Diagnoses Coronary artery disease involving [place] coronary artery of [place] heart without angina pectoris Essential hypertension Mixed hyperlipidemia Ischemic cardiomyopathy Status post coronary artery stent placement Class 2 obesity with body mass index (BMI) of 35.0 to 35.9 in adult, unspecified obesity type, unspecified whether serious comorbidity present Procedures Follow Up In Cardiology Rene Cortez MD [address] [address], [address] [address] Rene Cortez MD [address] [address], [address] [address] Referral IDStatusReasonStart DateExpiration DateVisits RequestedVisits [id number]/27/202310/26/202411 [facility] Work Phone: Reason for referral (narrative)* Consultation (Routine) - AuthorizedSpecialtyDiagnoses / ProceduresReferred By Contact Referred To ContactCardiology Diagnoses Coronary artery disease involving [place] coronary artery of [place] heart without angina pectoris Procedures Follow Up In Cardiology Rene Cortez MD [address] [place] [address], [address] [address] Rene Cortez MD [address] [place] [address], [address] [address] Referral IDStatusReasonLyons DateExpiration DateVisits RequestedVisits [id number]/23/20245/ [facility] Work Phone: Chief Complaint * [...] infarction with no ischemia. EF in the rafhd21u. He remains compensated as for ischemic cardiomyopathy. [...] down with emphasis on low-calorie diet * eRne Cortez MD, [facility] Family History Unknown Family Member Name Dates [...] W/O & W/CONTRAST MATRL Deandra Bender MD [address] [facility] [place] [id number] Mr Imaging Referral IDStatusReasonStart DateExpiration DateVisits RequestedVisits [id number] Review Auto-Generated Referral /[id number] / ProceduresReferred By ContactReferred To [facility] Diagnoses Paralytic strabismus Procedures MRI BRAIN WO/W IVCON MRI BRAIN BRAIN STEM W/O W/CONTRAST MATERIAL Deandra Bender MD [address] [employer]Katerin [place] [phone] Mr Imaging Referral IDStatusReasonStart DateExpiration DateVisits RequestedVisits [id number] Review Auto-Generated Referral Summary Purpose Advance Directives [...] or prosecute any alcohol or drug abuse patient.[facility] HospitalIn the event this information is protected by the Federal Confidentiality of Alcohol and Drug Abuse Patient Records regulations: The Federal rules restrict any use of the information to criminally investigate or prosecute any alcohol or drug abuse patient.[facility] HospitalIn the event this information is protected by the Federal Confidentiality of Alcohol and Drug Abuse Patient Records regulations: The Federal rules restrict any use of the information to criminally investigate or prosecute any alcohol or drug abuse patient.[facility] HospitalIn the event this information is protected by the Federal Confidentiality of Alcohol and Drug Abuse Patient Records regulations: The Federal rules restrict any use of the information to criminally investigate or prosecute any alcohol or drug abuse patient.[facility] HospitalIn the event this information is protected by the Federal Confidentiality of Alcohol and Drug Abuse Patient Records regulations: The Federal rules restrict any use of the information to criminally investigate or prosecute any alcohol or drug abuse patient.[facility] Reason for Visit (unrecogniz ed section and content) ReasonCommentsWatery Eyes Right EyeBlurred Vision Right EyeRight eye blurry when reading or computerReasonCommentsHemifacial spasm/MyokymiaReasonCommentsOrders ReasonCommentsHemifacial spasm/MyokymiaSpecialtyDiagnoses / ProceduresReferred By ContactReferred To ContactOphthalmology / OPHTHALMOLOGY Diagnoses Hemifacial spasm F/u Botulinum toxin 3 months, Botulinum toxin is being used for medical indication and treatment of hemifacial spasm , up to 100 units Procedures BOTOX EI [id number] [place] [address] [place] [address] Deandra Bender MD [address] [place] [address] Referral IDStatusReasonStart DateExpiration DateVisits RequestedVisits [id number]/20/202312/[id number]-ny8 monthsReasonCommentsFollow-ll1uKodxqicucGxvphlxuc / ProceduresReferred By ContactReferred To ContactCardiology Diagnoses Coronary artery disease involving [place]ak coronary artery of [place] heart without angina pectoris Essential hypertension Mixed hyperlipidemia Ischemic cardiomyopathy Status post coronary artery stent placement Class 2 obesity with body mass index (BMI) of 35.0 to 35.9 in adult, unspecified obesity type, unspecified whether serious comorbidity present Procedures Follow Up In Cardiology Rene Cortez MD [address] [place] [address], [address] [address] Rene Cortez MD [address] [place] [address] 2, [address] [address] Referral IDStatusReCle[facility] DateExpiration DateVisits RequestedVisits [id number]/27/202310/[id number] [facility]: sepsis, COPD, pneumoniaReasonComments6 Month Follow-upLab drawn 02/27/2024.CoughProductive cough continues with yellow sputum. Occasional shortness of breath. CXR ordered on 02/26to repeat in 8 weeks ReasonCommentsEaracheReasonCommentsFollow-up6 monthSpecialtyDiagnoses / ProceduresReferred By ContactReferred To ContactCardiology Diagnoses Coronary artery disease involving [place] coronary artery of [place] heart without angina pectoris Procedures Follow Up In Cardiology Rene Cortez MD [address] [place] [address] 2, [address] [address] Phone: tel: fax: Rene Cortez MD [address] [place] [address] 2, [address] [address] Phone: tel: fax: Referral IDStaalta vista [facility] hospitalHealth[facility] DateExpiration DateVisits RequestedVisits [id number]/23/20245/[id number] [facility] dx: COPD exacerbation 2ndry viral infection. He was prescribed Z-Santos, Prednisone and Mucinex. He does continue to have mucus. He is not using Mucinex, reports it does not work.RashRight axillaMassMid back for 2-3 weeks, painful, hardReasonCommentsSuspicious Skin LesionRashSpecialtyDiagnoses / ProceduresReferred By ContactReferred To ContactDermatology Diagnoses Skin lesion of back Sebaceous cyst Procedures SC OFFICE/OUTPATIENT [facility] MDM 60 MINUTES Sally Mancuso NP [address] [place] [address] Phone: tel: fax: Marybeth Long MD [address] [place] [address] Phone: tel: fax: Referral IDStatusHealth[facility] DateExpiration DateVisits RequestedVisits [id number] Consult and Treat /[id number] Month Follow Up of Chronic ConditionsMedicare Annual Wellness Visit SubsequentER [facility]. He was advised to resume Lasix, which was discontinued in the past due to low sodium levels.ReasonCommentsFollow-[facility] DC low ef (unrecognized sect ion and content) No Status Records FoundNo Status Records FoundNo Status Records FoundNo Status Records FoundNo Status Records FoundNo Status Records FoundNo Status Records FoundNo Status Records FoundNo Status Records FoundNo Status Records FoundNo Status Records Found INFORMATION SOURCE (unrecogn ized section and content) DATE CREATED AUTHOR 07/16/2022 [facility] Assistant Operations Manager DATE CREATED AUTHOR AUTHOR'S ORGANIZ ATION 09/09/2022 [employer] DATE CREATED AUTHOR AUTHOR'S ORGANIZ ATION 11/14/2022 [facility] DATE CREATED AUTHOR AUTHOR'S ORGANIZ ATION 02/12/2023 [facility] DATE CREATED AUTHOR AUTHOR'S ORGANIZ ATION 02/28/2023 [facility] DATE CREATED AUTHOR AUTHOR'S ORGANIZ ATION 09/29/2024 [facility] Medical Specialists [facility] DATE CREATED AUTHOR AUTHOR'S ORGANIZ ATION 11/26/2024 [facility] DATE CREATED AUTHOR AUTHOR'S ORGANIZ ATION 12/15/2024 [facility] DATE CREATED AUTHOR AUTHOR'S ORGANIZ ATION 12/20/2024 [facility] DATE CREATED AUTHOR AUTHOR'S ORGANIZ ATION 02/05/2025 [facility] DATE CREATED AUTHOR AUTHOR'S ORGANIZ ATION 03/16/2025 [facility] Care Teams (unrecognized sec tion and content) Team Status: Active Member Role Status Dates Sera Flower MD Primary Care Provider Active Team Status: Inactive Member Role Status Dates Sera Flower MD Primary Care Provider, Other Provider Active Rene Cortez MDAstuart ProviderActiveTeam MemberRelationshipSpecialtyStart DateEnd Date Sera Flower MD [address] [place] [address] PCP - General02/16/21 Team Status: Inactive Member Role Status Dates Sera Flower MD Primary Care Provider Active St art: June 14, 2023 End: June 14Mac De Santiago ProviderActiveStart: June 14, 2023 End: June 14, 2023Team MemberRelationshipSpecialtyStart DateEnd Date Sera Flower MD [address] [place] [address] PCP - Human05/28/22 Sera Flower MD [address] [place] [address] PCP - GeneralInternal Medicine10/03/22Team MemberRelationshipSpecialtyStart Date End Date Sera Flower MD [address] [place] [address] PCP - General02/16/21Team MemberRelationshipSpecialtyStart DateEnd Sera Flower MD [address] [place] [address] PCP - Humana1 Sera Flower MD [address] [place] [address] PCP - GeneralInternal Medicine10/03/22 Tootie Jacobson RN [address] [place] [address] Registered NurseInternal Medicine08/10/23 Rene Cortez MD [address] [place] [address] [address] [place] [address] Referring PhysicianCardiology09/05/23Team MemberRelationshipSpecialtyStart Date End Sera Flower MD [address] [place] [address] PCP - Humana1 Sera Flower MD [address] [place] [address] PCP - GeneralInternal Medicine10/03/22 Tootie Jacobson RN [address] [place] [address] Registered NurseInternal Medicine08/09/2410 Rene Cortez MD [address] [place] [address] [address] [place] [address] Referring PhysicianCardiology09/05/23Team MemberRelationshipSpecialtyStart Date End Date Sera Flower MD [address] [place] [address] PCP - Humana1 Sera Flower MD [address] [place] [address] PCP - GeneralInternal Medicine10/03/22 Rene Cortez MD [address] [facility] [address] [place] [address] Referring PhysicianCardiology09/05/23 Orquidea Carreon, DOUG Registered NurseFamily Yqhomqpl48/1/24Te MemberRelationshipSpecialtyStart Date End Date Srea Flower MD [address] [place] [address] PCP - Human05/28/22 Sera Flower MD [address] [place] [address] PCP - GeneralInternal Medicine10/03/22 Tootie Jacobson, DOUG [address] [place] [address] Registered NurseInternal Medicine08/10/23 Rene Cortez MD [address] [facility] [address] [place] [address] Referring PhysicianCardiology09/05/23Team MemberRelationshipSpecialtyStart Date End Date Sera Flower MD [address] [place] [address] PCP - Humana1 Sera Flower MD [address] [place] [address] PCP - GeneralInternal Medicine10/03/22 Tootie Jacobson RN [address] [place] [address] Registered NurseInternal Medicine08/10/23 Rene Cortez MD [address] [place] [address] [address] [place] [address] Referring PhysicianCardiology09/05/23Team MemberRelationshipSpecialtyStart Date End Date Sera Flower MD [address] [place] [address] PCP - Humana1 Sera Flower MD [address] [place] [address] PCP - GeneralInternal Medicine10/03/22 Tootie Jacobson RN [address] [place] [address] Registered NurseInternal Medicine08/10/23 Rene Cortez MD [address] [place] [address] [address] [place] [address] Referring PhysicianCardiology09/05/23Team MemberRelationshipSpecialtyStart Date End Date Sera Flower MD [address] [place] [id number] PCP - General9Team MemberRelationshipSpecialtyStart [facility] Sera Flower MD [address] [place] [address] PCP - Human05/28/22 Sera Flower MD [address] [place] [address] PCP - GeneralInternal Medicine10/03/22 Rene Cortez MD [address] [facility] [address] [place] [address] Referring PhysicianCardiology09/05/23 Orquidea Shah RN Registered NurseInternal Medicine06/03/24Team MemberRelationshipSpecialtyStart DateStephen[facility] Sera Flower MD [address] [place] [address] PCP - Human05/28/22 Sera Flower MD [address] [place] [address] PCP - GeneralInternal Medicine10/03/22 Rene Cortez MD [address] [facility] [address] [place] [address] Referring PhysicianCardiology09/05/23 Orquidea Shah RN Registered NurseInternal Medicine06/03/24Team MemberRelationshipSpecialtyStart [facility] Sera Flower MD [address] [place] [address] PCP - Humana1 eSra Flower MD [address] [place] [address] PCP - GeneralInternal Medicine10/03/22 Rene Cortez MD [address] [facility] [address] [place] [address] Referring PhysicianCardiology09/05/23 [facility] Hospital[facility]quidea RN Registered NurseInternal Medicine06/03/24Team MemberRelationshipSpecialtyStart DateEnd Date Sera Flower MD [address] [place] [address] PCP - Humana1 Sera Flower MD [address] [place] [address] PCP - GeneralInternal Medicine10/03/22 Rene Cortez MD [address] [facility] [address] [place] [address] Referring PhysicianCardiology09/05/23 Orquidea Shah, DOUG Registered NurseInternal Medicine06/03/24 Chalino Phoenix MD [address] [facility] [address] [place] [address] Referring PhysicianPulmonary Disease09/24/24 John Baptiste MD [address] [facility] [place] [address] Referring PhysicianUrology09/24/24 Gurjit Busby NP [address] [place] [address] Nurse PractitionerFamily Medicine09/24/24 [facility]09/24/24 Team Status: [...] MDOther ProviderActiveStart: October 16, 2024 End: October 18lakia Mendez MDOther ProviderActiveStart: October 16, 2024 End: [...] DateEnd Date Torres Pate MD [address] [facility] [place] [address] PCP - GeneralFamily Medicine10/24/24 Team Status: Active [...] DateEnd Date Sera Flower MD [address] [facility] [address] [place] [address] PCP - Human/ Sera Flower MD [address] [facility] [address] [place] [address] PCP - GeneralInternal Medicine Unallocated, Nombar Landis MD [address] [facility] [place] [address] PCP - GeneralFamily Medicine Torres Pate MD [address] [facility] [place] [address] PCP - GeneralFamily Medicine10/17/24 Tootie Jacobson, DOUG [address] [place] [address] Registered NurseInternal Medicine08/09/2410/06/20 Rene Cortez MD [address] [place] [address] Referring PhysicianCardiology09/05/23 Orquidea Carreon RN [address] [place] [address] Registered NurseFamily Pqrhbqeb97/1/241 Orquidea Shah RN [address] [place] [address] Registered NurseInternal Medicine Chalino Phoenix DO [address] [place] [address] Referring PhysicianPulmonary Disease09/24/24 John Baptiste MD [address] [facility] [place] [address] Referring PhysicianUrology09/24/24 Gurjit Busby NP [address] [place] [address] Nurse PractitionerFamily Medicine09/24/24 SVS Optometry09/24/24 Goals (unrecognized [...] THE PRIMARY CLINICAL RECORDS. [facility] [employer] [facility]. provides no warranty or guarantee of the accuracy or completeness of information in this document.
--- OUTSIDE RECORDS SUMMARY | 2025-04-23 07:30 | XMS_ITS | Clinical Summary ---
Author Organization [facility] Address [address], [address] [place] [address] Care Team Prov[address] Care Road Marker Name Role Phone Chun Hobbs MD Primary Care Provider [phone] Allergies Active AllergyReactionsCriticalityNoted DateCommentsCodeineHallucinations 10/16/2023 Medications MedicationSigDispense QuantityRefillsLast FilledStart DateEnd DateStatus omeprazole (PRILOSEC) 10 MG delayed release capsule Take 1 capsule by mouth dailyActive Tnkardy-Qjbifdslxzi-Qfjyipwawf (BREZTRI AEROSPHERE) 160-9-4.8 MCG/ACT AERO Inhale into the lungsActive losartan (COZAAR) 25 MG tablet Take 1 tablet by mouth dailyActive tamsulosin (FLOMAX) 0.4 MG capsule Take 1 capsule by mouth dailyActive carvedilol (COREG) 6.25 MG tablet Take 1 tablet by mouth 2 times daily (with meals)Active ALBUTEROL SULFATE PO Take by mouthActive albuterol (PROVENTIL) (2.5 MG/3ML) 0.083% nebulizer solution Take 3 mLs by nebulization every 6 hours as needed for WheezingActive Mometasone Furoate (NASONEX NA) by Nasal routeActive Social History Tobacco UseTypesPacks/DayYears UsedDateSmoking Tobacco: FormerCigarettes 05/28/1992 - 05/28/1970Smokeless Tobacco: NeverSex and Gender InformationValue Date RecordedSex Assigned at BirthNot on fileLegal XkgKjju0707/07/2012 2:14 PM EST Gender IdentityNot on fileSexual OrientationNot on file Last Filed Vital Signs Vital SignReadingTime TakenCommentsBlood Eklrykfo929/62010/16/2023 9:59 AM EDT Pwzco8520 9:59 AM EDTTemperature--Respiratory Sngi407310/16/2023 9:59 AM EDTOxygen Qtpbftkntn64%10/16/2023 9:59 AM EDTraInhaled Oxygen Concentration-- Vapuon982.2 kg (232 lb)10/16/2023 9:59 AM FKPCfpalq949.7 cm (5' 8 )10/16/2023 9:59 AM EDTBody Mass Index35.28010/16/2023 9:59 AM EDT Plan of Treatment Health MaintenanceDue DateLast DoneCommentsDepression Ftlnha1101/01/1965Hepatitis C ndumnx4601/01/19713085Ksgkht39/07/3395Ojiruwsehpp93/07/1998Colorectal Cancer Screen 1998FIT/FOBT: Average risk1998Fecal-DNA (Cologuard): Average risk 1998Sigmoidoscopy/CT vzbzujxqiiof77/07/1998Shingles vaccine (2 of 3) AAA trznsj7401/01/2018Annual Wellness Visit (Medicare Advantage)05/28/2024Flu vaccine (#1), 03/28/2019, 08/16/2018, Additional history existsCOVID-19 Vaccine ( - season) 2025DTaP/Tdap/Td vaccine (2 - Td or Tdap), 2007 Respiratory Syncytial Virus (RSV) or age 60 yrs+ (1 - 1-dose 75+ series)01/02/2028Pneumococcal 50+ years BhpnqjpDwnggykqt86/22/2019, 05/28/2018, 09/30/2012, Additional history existsHepatitis A vaccineAged OutNo longer eligible based on patient's age to complete this topicHepatitis B vaccineAged OutNo longer eligible based on patient's age to complete this topicHib vaccine Aged OutNo longer eligible based on patient's age to complete this topic Meningococcal (ACWY) vaccineAged OutNo longer eligible based on patient's age to complete this topicMeningococcal B vaccineAged OutNo longer eligible based on patient's age to complete this topicPolio vaccineAged OutNo longer eligible based on patient's age to complete this topic Insurance Care Teams Team MemberRelationshipSpecialtyStart DateEnd Chun Hobbs MD [address] [place] [address] [facility]10/15/23
--- OUTSIDE RECORDS SUMMARY | 2025-04-23 07:30 | XMS_ITS | Patient Health Record ---
Author Organization [facility] [place] Address [address] [place] [address] Care Team Providers Care Guest Services Manager Name Role Phone Tin Klein Primary Care Provider [phone] Evens Morgan Unavailable [phone] Allergies Allergen (clinical drug ingredient) Drug/Non Drug Allergy documented on EMR Reaction Allergy Type Onset Date Status codeine Codeine mental status change Drug Allergy Active Results Component Value Reference Range Notes CBC AUTO DIFF Reviewed date:10/06/2024 02:02:36 PM Interpretation: Performing Lab: Notes/Report: [facility] , White Blood Count 9.5 4.0-11.0 10 3/uL Red Blood Count4.964.70-6.10 10 6/bIHdwlblstss76.114.0-18.0 g/qFFyjimonrbr98.1 42.0-54.0 %Mean Corpuscular Yhkibf39.980.0-94.0 fLMean Corpuscular Hemoglobin 28.425.9-34.0 pgMean Corpuscular HGB Conc34.329.9-35.2 g/dLRed Cell Distribution Width14.711.0-15.0 %Platelet Pbpku937413-967 10 3/uLMean Platelet Tcmazo33.39.5- 13.5 fLNeutrophils Percent Auto72.343.0-75.0 %Lymphocytes Percent Auto10.420.5- 60.0 %Monocytes Percent Auto10.71.7-12.0 %Eosinophils Percent Auto5.60.9-7.0 % Basophils Percent Auto0.40.2-2.0 %Immature Granulocytes Pct Auto0.60.0-0.5 % Neutrophils Absolute Auto6.91.4-6.5 10 3/uLLymphocytes Absolute Auto1.01.2-3.8 10 3/uLMonocytes Absolute Auto1.00.3-0.8 10 3/uLEosinophils Absolute Auto0.50.0- 0.7 10 3/uLBasophils Absolute Auto0.00.0-0.1 10 3/uLImmature Granulocytes Abs Auto0.060.00-0.03 10 3/uLPerforming Lab:see noteML - [facility] LB INFLUENZA A AND B AG Reviewed date:10/06/2024 02:02:36 PM Interpretation: Performing Lab: Notes/Report: [facility] ,Influenza Virus A AntigenNegative Negative for Flu A protein antigen. Infection due to Flu A cannot be ruled out. Flu A antigen in the sample may be below the detection limit of the test. Influenza Virus B AntigenNegative Negative for Flu B protein antigen. Infection due to Flu B cannot be ruled out. Flu B antigen in the sample may be below the detection limit of the test. Performing Lab:see noteML - [facility] LBPROF CHEM 8 (BAS METB) Reviewed date:10/06/2024 02:02:36 PM Interpretation: Performing Lab: Notes/Report: [facility] ,Gbbmvx329507-431 mmol/LPotassium4.43.5-5.1 mmol/LSPECIMEN IS SLIGHTLY HEMOLYZED Ndzetlqk5013-621 mmol/LCarbon Pqxibue70.021.0-32.0 mmol/LAnion Gap15.1Tdfhwtn073 74-106 mg/dLBlood Urea Iftkqkrz69.07.0-18.0 mg/dLCreatinine0.990.70-1.30 mg/dL Estimated GFR ( Joyce>60>=60 mL/min/1.73m 2Estimated GFR (Non- Lulu>60>=60 mL/min/1.73m 2BUN Creatinine Ratio15.3Nbzwuwc9.08.5-10.1 mg/dL Performing Lab:see noteML - [facility] MACOOU-WpR-7 Ag* Reviewed date:10/06/2024 02:02:37 PM Interpretation: Performing Lab: Notes/Report: [facility] ,SARS-CoV-2 AgNEGATIVENEGATIVE This test has not been FDA cleared [...] terminated or authorization is revoked sooner. Performing Lab:see noteML - [facility] LBXR chest 1V Reviewed date:10/06/2024 02:02:37 PM Interpretation: Performing Lab: Notes/Report: Source Facility: [place] [address] [place] [address] XRay Report Signed Patient: DEMARCUS PANCHAL MR#: [id number] : 1955 Acct:[id number] Age/Sex: 69 / M ADM Date: 10/06/24 Loc: ER Attending Dr: Ordering Physician: Indra Bernard M.D. Date of Service: 10/06/24 Procedure(s): XR chest 1V Accession Number(s): [id number] cc: Rk Klein M.D.; Indra Bernard M.D. [facility] [place] [id number] Patient Name: DEMARCUS PANCHAL MRN: [facility]:[id number] date: 1955 Sex: M Assigned Patient Location: ER Current Patient Location: ER Accession/Order Number: [id number] Exam Date: 10/06/2024 12:17 Report Date: 10/06/2024 [...] Barillas M.D. 10/06/2024 12:25 PM Dictation Location: [place] [address] Electronically authenticated by: [id number] Y Date: 10/06/2024 12:25 Dictated By: Lisa Barillas M.D. Signed By: 10/06/24 1227 DD/ 1225 TD/TT: Emergency Medicine:BNP Reviewed date:10/09/2024 03:32:21 PM Interpretation: Performing Lab: Notes/Report: [facility] ,NT Pro B Type Natriuretic Fqmd205.0<=900.0 pg/mLPerforming Lab:see noteML - [facility] LBLACTATE or LACTIC ACID Reviewed date:10/09/2024 03:32:21 PM Interpretation: Performing Lab: Notes/Report: [facility] ,Lactate/Lactic Acid2.90.4-2.0 mmol/LRESULTS CALLED TO VERONICA GARDINER RN at 1231 Performing Lab:see noteML - [facility] LBLIVER PROFILE Reviewed date:10/09/2024 03:32:21 PM Interpretation: Performing Lab: Notes/Report: [facility] ,Bilirubin Total0.50.2-1.0 mg/dLBilirubin Direct0.10.0-0.2 mg/dLAspartate Amino Xyhywqxnowz1456-41 U/LAlanine Wxnyfhsnojuetpqs0268-97 U/LAlkaline Odeneytwwqn47 46-116 U/LTotal Protein6.56.4-8.2 g/dLAlbumin Level2.73.4-5.0 g/dLGlobulin3.8 Albumin Globulin Ratio0.7Performing Lab:see noteML - [facility] LB MAGNESIUM Reviewed date:10/09/2024 03:32:21 PM Interpretation: Performing Lab: Notes/Report: [facility] ,Magnesium2.01.8-2.4 mg/dLPerforming Lab:see [facility] LB PROF CHEM 8 (BAS METB) Reviewed date:10/09/2024 03:32:21 PM Interpretation: Performing Lab: Notes/Report: [facility] ,Hpyilf873128-038 mmol/LPotassium3.93.5-5.1 mmol/CCvputbgk9945-223 mmol/LCarbon Scszmld05.521.0-32.0 mmol/LAnion Gap14.6Wikgsgp58302-591 mg/dLBlood Urea Xyimyeij66.07.0-18.0 mg/dLCreatinine1.110.70-1.30 mg/dLEstimated GFR ( Joyce>60>=60 mL/min/1.73m 2Estimated GFR (Non- Lulu>60>=60 mL/min/1.73m 2BUN Creatinine Ratio9.8Tjhjstw4.78.5-10.1 mg/dLPerforming Lab:[facility] LBRSV Reviewed date:10/09/2024 03:32:21 PM Interpretation: Performing Lab: Notes/Report: [facility] ,Respiratory Syncytial VirusNot DetectedNOT DETECTEPerforming Lab:[facility]The [facility] LBBlood Culture 1 Reviewed date:10/14/2024 06:07:04 PM Interpretation: Performing Lab: Notes/Report: [facility] ,Blood Culture 1See Below For Report Blood Culture 1 NG5D NO GROWTH AT 5 DAYS.^NO GROWTH AT 5 DAYS. Performing Lab:see note - [facility] LBBlood Culture 2 Reviewed date:10/14/2024 06:07:04 PM Interpretation: Performing Lab: Notes/Report: [facility] ,Blood Culture 2See Below For Report Blood Culture 2 NG5D NO GROWTH AT 5 DAYS.^NO GROWTH AT 5 DAYS. Performing Lab:[facility] LBTroponin I High Sensitivity Reviewed date:10/09/2024 03:32:21 PM Interpretation: Performing Lab: Notes/Report: [facility] ,Troponin I High Pytzeqdaulp50.34.0-76.1 pg/mL CUT-OFF POINTS HAVE BEEN ESTABLISHED BASED ON THE FOURTH UNIVERSAL DEFINITION OF MYOCARDIAL INFARCTION. THE UPPER REFERENCE LIMIT (URL) OF TROPONIN, DEFINED THE 99TH PERCENTILE OF cTnI DISTRIBUTION IN A REFERENCE POPULATION, HAS BEEN CONFIRMED THE DECISION THRESHOLD FOR RI DIAGNOSIS. 99TH PERCENTILE = 76.2 PG/ML NOTE: HIGH-SENSITIVITY TROPONIN ASSAY IS NOT INTENDED TO BE USED IN ISOLATION BUT SHOULD BE INTERPRETED IN CONJUNCTION WITH OTHER DIAGNOSTIC AND CLINICAL INFORMATION. Performing Lab:see noteML - [facility] KOZRAS-FkH-5 Ag* Reviewed date:10/09/2024 03:32:21 PM Interpretation: Performing Lab: Notes/Report: [facility] ,SARS-CoV-2 AgNEGATIVENEGATIVE This test has not been FDA cleared [...] terminated or authorization is revoked sooner. Performing Lab:see noteML - [facility] LBECG 12 lead Reviewed date:10/09/2024 08:46:05 PM Interpretation: Performing Lab: Notes/Report: Source Facility: [facility]-[address] [place] [address] [place] [address] Electrocardiograph Report Signed Patient: DEMARCUS PANCHAL MR#: [id number] : 1955 Acct:[id number] Age/Sex: 69 / M ADM Date: 10/09/24 Loc: [place] 219-[address]: Rk Klein M.D. Ordering Physician: Indra Bernard M.D. Date of Service: 10/09/24 Procedure(s): ECG 12 lead Accession Number(s): [id number] cc: [facility] Test Date: 2024-10-09 Pat Name: DEMARCUS PANCHAL Department: Room: - Gender: Male Com Writer: : 1955 Requested By: 1030 Order Number: [id number] Reading MD: MELANY CHEN M.D. Measurements Intervals [place] Rate: 93 P: 39 VT: 166 QRS: -20 QRSD: 98 T: 75 QT: 340 QTc: 391 Interpretive Statements 1100 Sinus rhythm 4068 Nonspecific Twave abnormality 5233 Voltage criteria for LVH 0104 ELECTRODE(S) DETACHED ... Repeat ECG is requested 9150 abnormal ECG Compared to ECG 10/06/2024 11:59:44 No significant changes Electronically Signed On 10-09-2024 19:44:48 EDT by MELANY CHEN M.D. Dictated By: MELANY CHEN Signed By: 10/09/241944 DD/ 112 TD/TT: Emergency Medicine:LACTATE or LACTIC ACID Reviewed date:10/09/2024 03:32:21 PM Interpretation: Performing Lab: Notes/Report: [facility] ,Lactate/Lactic Acid1.20.4-2.0 mmol/LPerforming Lab:see noteML - [facility] LBCBC AUTO DIFF Reviewed date:10/12/2024 09:43:25 PM Interpretation: Performing Lab: Notes/Report: [facility] ,White Blood Count6.94.0-11.0 10 3/uLRed Blood Count4.464.70-6.10 10 6/uL Yqodpephra34.914.0-18.0 g/uJGsctxsyzrj99.742.0-54.0 %Mean Corpuscular Zixeak27.3 80.0-94.0 fLMean Corpuscular Nubfcpxkrk67.925.9-34.0 pgMean Corpuscular HGB Conc 35.129.9-35.2 g/dLRed Cell Distribution Width13.911.0-15.0 %Platelet Fzavw547 150-450 10 3/uLMean Platelet Xzoibz48.19.5-13.5 fLNeutrophils Percent Auto84.1 43.0-75.0 %Lymphocytes Percent Auto12.620.5-60.0 %Monocytes Percent Auto2.81.7- 12.0 %Eosinophils Percent Auto0.10.9-7.0 %Basophils Percent Auto0.10.2-2.0 % Immature Granulocytes Pct Auto0.30.0-0.5 %Neutrophils Absolute Auto5.81.4-6.5 10 3/uLLymphocytes Absolute Auto0.91.2-3.8 10 3/uLMonocytes Absolute Auto0.20.3-0.8 10 3/uLEosinophils Absolute Auto0.00.0-0.7 10 3/uLBasophils Absolute Auto0.00.0- 0.1 10 3/uLImmature Granulocytes Abs Auto0.020.00-0.03 10 3/uLPerforming Lab:see noteML - [facility] LBPROF CHEM 8 (BAS METB) Reviewed date:10/12/2024 09:43:25 PM Interpretation: Performing Lab: Notes/Report: [facility] ,Brtwpe803671-322 mmol/LPotassium4.33.5-5.1 mmol/FEvvhoaor9998-706 mmol/LCarbon Mqbyqrf00.121.0-32.0 mmol/LAnion Gap15.9Jpswfab26480-321 mg/dLBlood Urea Jrpwiort57.07.0-18.0 mg/dLCreatinine0.750.70-1.30 mg/dLEstimated GFR ( Joyce>60>=60 mL/min/1.73m 2Estimated GFR (Non- Lulu>60>=60 mL/min/1.73m 2BUN Creatinine Ratio18.1Hslryjr6.08.5-10.1 mg/dLPerforming Lab:see noteML - [facility] LBResult 4 Reviewed date:10/18/2024 11:43:47 AM Interpretation: Performing Lab: Notes/Report: [facility] ,Result 4See Below For Report Result 4 PARTS PROFESSIONAL Performing Lab:see noteLC - [facility] LBGram Stain Evaluation Reviewed date:10/18/2024 11:43:47 AM Interpretation: Performing Lab: Notes/Report: [facility] ,Gram Stain EvaluationSee Below For Report Gram Stain Evaluation This specimen is of good quality and is acceptable for routine Gram Stain Evaluationbacterial culture. Gram Stain Evaluation This specimen is of good quality and is acceptable for routine Performing Lab:see noteLC - [facility] LBXR chest 2V Reviewed date:10/13/2024 12:53:09 PM Interpretation: Performing Lab: Notes/Report: Source Facility: [place] [address] XRay Report Signed Patient: DEMARCUS PANCHAL MR#: [id number] : 1955 Acct:[id number] Age/Sex: 69 / M ADM Date: 10/09/24 Loc: [place] 219-[address]: Rk Klein M.D. Ordering Physician: Rk Klein M.D. Date of Service: 10/13/24 Procedure(s): XR chest 2V Accession Number(s): [id number] cc: Rk Klein M.D. [place] [address] Patient Name: DEMARCUS PANCHAL MRN: [facility]:[id number] date: 1955 Sex: M Assigned Patient Location: [place] Current Patient Location: [place] Accession/Order Number: [id number] Exam Date: 10/13/2024 09:12 Report Date: 10/13/2024 [...] Garber M.D. 10/13/2024 9:13 AM Dictation Location: [place] [address] Electronically authenticated by: [id number] Y Date: 10/13/2024 09:13 Dictated By: Jb Garber M.D. Signed By: 10/13/24 1011 DD/ 0913 TD/TT: Emergency Medicine:White Blood Cells Reviewed date:10/18/2024 11:43:47 AM Interpretation: Performing Lab: Notes/Report: [facility] ,White Blood CellsSee Below For Report White Blood Cells White Blood CellsNone seen White Blood Cells Performing Lab:see noteLC - [facility] LBGram Stain Evaluation Reviewed date:10/15/2024 05:48:51 PM Interpretation: Performing Lab: Notes/Report: [facility] ,Gram Stain EvaluationSee Below For Report Gram Stain Evaluation This specimen is of good quality and is acceptable for routine Gram Stain Evaluationbacterial culture. Gram Stain Evaluation This specimen is of good quality and is acceptable for routine Performing Lab:see noteLC - [facility] LBLower Respiratory Culture Reviewed date:10/22/2024 06:07:56 PM Interpretation: Performing Lab: Notes/Report: [facility] ,Lower Respiratory CultureSee Below For Report Lower Respiratory Culture WILL FOLLOW Lower Respiratory CultureRoutine respiratory nargis Lower Respiratory Culture WILL FOLLOW Lower Respiratory CulturePerformed at: CB - [facility] [place] Lower Respiratory Culture WILL FOLLOW Lower Respiratory [address] [place], [place] [id number] Lower Respiratory Culture WILL FOLLOW Lower Respiratory CultureLab Director: Valentin Avilez PhD, Phone: [phone] Lower Respiratory Culture WILL FOLLOW Performing Lab:see note LC - [facility] LB SEE REPORT - Behavioral Health Care Coordinator Id information not found for OBX-specific producer arborist manager legend BNP Reviewed date:10/15/2024 09:07:07 AM Interpretation: Performing Lab: Notes/Report: [facility] ,NT Pro B Type Natriuretic Uhoh366.0<=900.0 pg/mLPerforming Lab:see noteML - [facility] LBXR chest 2V Reviewed date:10/15/2024 09:28:27 AM Interpretation: Performing Lab: Notes/Report: Source Facility: [facility]-[address] [place] [address] [place] [address] XRay Report Signed Patient: DEMARCUS PANCHAL MR#: [id number] : 1955 Acct:[id number] Age/Sex: 69 / M ADM Date: 10/09/24 Loc: [place] 219-[address]: Rk Klein M.D. Ordering Physician: Rk Klein M.D. Date of Service: 10/15/24 Procedure(s): XR chest 2V Accession Number(s): [id number] cc: Rk Klein M.D. The [address] [address] Patient Name: DEMARCUS PANCHAL MRN: [facility]:[id number] date: 1955 Sex: M Assigned Patient Location: [place] Current Patient Location: [place] Accession/Order Number: [id number] Exam Date: 10/15/2024 09:06 Report Date: 10/15/2024 09:11 At the request of: RK LKEIN MD Procedure: XR chest 2V PA AND [...] Barillas M.D. 10/15/2024 9:11 AM Dictation Location: [place] [address] Electronically authenticated by: [id number] Y Date: 10/15/2024 09:11 Dictated By: Lisa Barillas M.D. Signed By: 10/15/2414 DD/ 0 TD/TT: Emergency Medicine:BNP Reviewed date:10/16/2024 12:36:43 PM Interpretation: Performing Lab: Notes/Report: [facility] ,NT Pro B Type Natriuretic Nvee336.0<=900.0 pg/mLPerforming Lab:see noteML - [facility] LBManual Differential Reviewed date:10/16/2024 12:36:43 PM Interpretation: Performing Lab: Notes/Report: [facility] ,Segmented Neutrophils % Fdadns89.043.0-75.0Band Neutrophils %1.00-5 % Lymphocytes Percent Ypxmej81.020.5-60.0 %Monocytes Percent Manual2.01.7-12.0 % Eosinophils Percent Manual2.00.9-7.0 %Basophils Percent Manual0.00.2-2.0 % Segmented Neut Absolute Manual9.481.4-6.5 10 3/uLBand Neutrophils Absolute0.1 0.0-0.3 10 3/uLLymphocytes Absolute Manual1.921.20-3.80 10 3/uLMonocytes Absolute Manual0.240.30-0.80 10 3/uLEosinophils Absolute Manual0.240.00-0.70 10 3/uLBasophils Abs Manual0.000.00-0.10 10 3/uLPerforming Lab:see noteML - [facility] LBBlood Culture 1 Reviewed date:10/26/2024 04:12:55 PM Interpretation: Performing Lab: Notes/Report: [facility] ,Blood Culture 1See Below For Report Blood Culture 1 NG5D NO GROWTH AT 5 DAYS.^NO GROWTH AT 5 DAYS. Performing Lab:see note - [facility] LBBlood Culture 2 Reviewed date:10/26/2024 04:12:55 PM Interpretation: Performing Lab: Notes/Report: [facility] ,Blood Culture 2See Below For Report Blood Culture 2 NG5D NO GROWTH AT 5 DAYS.^NO GROWTH AT 5 DAYS. Performing Lab:see note - [facility] LBT4 Reviewed date:10/20/2024 03:22:57 PM Interpretation: Performing Lab: Notes/Report: [facility] ,T4 Thyroxine7.404.50-12.10 ug/dLPerforming Lab:see note - [facility] LBTSH Reviewed date:10/20/2024 03:22:57 PM Interpretation: Performing Lab: Notes/Report: [facility] ,Thyroid Stimulating Hormone1.2170.358-3.740 uIU/mLPerforming Lab:see noteML - [facility] LBResult 3 Reviewed date:10/22/2024 06:07:56 PM Interpretation: Performing Lab: Notes/Report: [facility] ,Result 3See Below For Report Result 3 *ABNORMAL* Result 3Rare gram negative rods. Result 3 *ABNORMAL* Performing Lab:see note - [facility] LBResult 4 Reviewed date:10/22/2024 06:07:56 PM Interpretation: Performing Lab: Notes/Report: [facility] ,Result 4See Below For Report Result 4 PARTS PROFESSIONAL Performing Lab:see note - [facility] LBGram Stain Evaluation Reviewed date:10/22/2024 06:07:56 PM Interpretation: Performing Lab: Notes/Report: [facility] ,Gram Stain EvaluationSee Below For Report Gram Stain Evaluation This specimen is of good quality and is acceptable for routine Gram Stain Evaluationbacterial culture. Gram Stain Evaluation This specimen is of good quality and is acceptable for routine Performing Lab:see note - [facility] LBBNP Reviewed date:02/17/2025 03:00:43 PM Interpretation: Performing Lab: Notes/Report: [facility] ,NT Pro B Type Natriuretic Mpvx079.0<=900.0 pg/mLPerforming Lab:see note - [facility] LBPROF CHEM 8 (BAS METB) Reviewed date:02/17/2025 03:00:43 PM Interpretation: Performing Lab: Notes/Report: [facility] ,Mbznoc526894-817 mmol/LPotassium3.73.5-5.1 mmol/VYfceijop09019-550 mmol/LCarbon Nhkrhoh63.121.0-32.0 mmol/LAnion Gap12.4Nruadam36129-744 mg/dLBlood Urea Ejaqcpjx29.07.0-18.0 mg/dLCreatinine0.910.70-1.30 mg/dLEstimated GFR ( Joyce>60>=60 mL/min/1.73m 2Estimated GFR (Non- Lulu>60>=60 mL/min/1.73m 2BUN Creatinine Ratio15.3Hewiwes2.98.5-10.1 mg/dLPerforming Lab:see noteML - [facility] LBTroponin I High Sensitivity Reviewed date:02/17/2025 03:00:43 PM Interpretation: Performing Lab: Notes/Report: [facility] ,Troponin I High Anzqkegvfhw21.34.0-76.1 pg/mL CUT-OFF POINTS HAVE BEEN ESTABLISHED BASED ON THE FOURTH UNIVERSAL DEFINITION OF MYOCARDIAL INFARCTION. THE UPPER REFERENCE LIMIT (URL) OF TROPONIN, DEFINED THE 99TH PERCENTILE OF cTnI DISTRIBUTION IN A REFERENCE POPULATION, HAS BEEN CONFIRMED THE DECISION THRESHOLD FOR RI DIAGNOSIS. 99TH PERCENTILE = 76.2 PG/ML NOTE: HIGH-SENSITIVITY TROPONIN ASSAY IS NOT INTENDED TO BE USED IN ISOLATION BUT SHOULD BE INTERPRETED IN CONJUNCTION WITH OTHER DIAGNOSTIC AND CLINICAL INFORMATION. Performing Lab:see noteML - [facility] LBXR chest 2V Reviewed date:02/17/2025 03:02:46 PM Interpretation: Performing Lab: Notes/Report: Source Facility: [place] [address] XRay Report Signed Patient: DEMARCUS PANCHAL MR#: [id number] : 1955 Acct:[id number] Age/Sex: 70 / M ADM Date: 02/17/25 Loc: ER Attending Dr: Ordering Physician: Adrian Mccoy Date of Service: 02/17/25 Procedure(s): XR chest 2V Accession Number(s): [id number] cc: Rk Klein M.D.; Adrian Mccoy [place] [address] Patient Name: DEMARCUS PANCHAL MRN: [facility]:[id number] date: 1955 Sex: M Assigned Patient Location: ED.MAIN Current Patient Location: ED.MAIN Accession/Order Number: [id number] Exam Date: 02/17/2025 14:42 Report Date: 02/17/2025 14:56 At the request of: ADRIAN LYNNE Procedure: XR chest 2V Chest 2 views CLINICAL HISTORY: sob/copd COMPARISON: None FINDINGS: Cardiomegaly is present. Diffuse bronchial wall thickening/interstitial changes. No lung consolidation, pneumothorax, pleural effusion or free air. XR/XR chest 2V IMPRESSION: NO SIGNIFICANT CHANGE IN CHEST FINDINGS COMPARED TO THE PRIOR STUDY. NO CONSOLIDATION TO SUGGEST PNEUMONIA. Impression dictated by: Jd Quinn Jr., D.O. 02/17/2025 2:56 PM Dictation Location: [place] [address] Electronically authenticated by: [id number] Y Date: 02/17/2025 14:56 Dictated By: Jd Quinn M.D. Signed By: 02/17/25 1459 DD/ 1456 TD/TT: Emergency Medicine:Troponin I High Sensitivity Reviewed date:02/17/2025 05:44:59 PM Interpretation: Performing Lab: Notes/Report: [facility] ,Troponin I High Xzltzkdgfkx91.54.0-76.1 pg/mL CUT-OFF POINTS HAVE BEEN ESTABLISHED BASED ON THE FOURTH UNIVERSAL DEFINITION OF MYOCARDIAL INFARCTION. THE UPPER REFERENCE LIMIT (URL) OF TROPONIN, DEFINED THE 99TH PERCENTILE OF cTnI DISTRIBUTION IN A REFERENCE POPULATION, HAS BEEN CONFIRMED THE DECISION THRESHOLD FOR RI DIAGNOSIS. 99TH PERCENTILE = 76.2 PG/ML NOTE: HIGH-SENSITIVITY TROPONIN ASSAY IS NOT INTENDED TO BE USED IN ISOLATION BUT SHOULD BE INTERPRETED IN CONJUNCTION WITH OTHER DIAGNOSTIC AND CLINICAL INFORMATION. Performing Lab:see noteML - [facility] LBXR shoulder LT min 2V Reviewed date:02/24/2025 12:23:58 PM Interpretation: Performing Lab: Notes/Report: Source Facility: [place] [address] [place] [address] XRay Report Signed Patient: DEMARCUS PANCHAL MR#: [id number] : 1955 Acct:[id number] Age/Sex: 70 / M ADM Date: 02/24/25 Loc: ER Attending Dr: Ordering Physician: Gilberto Alston Date of Service: 02/24/25 Procedure(s): XR shoulder LT min 2V Accession Number(s): [id number] cc: Rk Klein M.D.; Gilberto Alston [place] [address] Patient Name: DEMARCUS PANCHAL MRN: [id number]:[id number] date: 1955 Sex: M Assigned Patient Location: ER Current Patient Location: ER Accession/Order Number: [id number] Exam Date: 02/24/2025 11:22 Report Date: 02/24/2025 12:16 At the request of: GILBERTO ALSTON DO Procedure: XR elbow LT min 3V CLINICAL HISTORY: Left shoulder and elbow pain since fall 2 days ago LEFT SHOULDER - 3 views COMPARISON: None AP, Y and Grashey views were obtained. There is no evidence of fracture or dislocation. Minor degenerative changes visualized at the acromioclavicular joint and greater tuberosity. There are no significant soft tissue abnormalities. XR/XR shoulder LT min 2V IMPRESSION: NO ACUTE BONY INJURY. LEFT ELBOW - 3 VIEWS COMPARISON: None AP, lateral and oblique views were obtained. There is no definite acute fracture or dislocation. Small enthesophytes are visualized at the humeral epicondyles and insertion of triceps at the posterior olecranon. There is minimal spurring at the trochlear notch. There is a tiny corticated bony density adjacent to the lateral radial neck which also appears chronic and may be degenerative. There are no significant soft tissue abnormalities. There is no elbow effusion. IMPRESSION: DEGENERATIVE CHANGES. NO DEFINITE ACUTE BONY INJURY. Impression dictated by: Lisa Barillas M.D. 02/24/2025 12:16 PM Dictation Location: [place] [address] Electronically authenticated by: [id number] Y Date: 02/24/2025 12:16 Dictated By: Lisa Barillas M.D. Signed By: 02/24/25 1219 DD/ 1216 TD/TT: Emergency Medicine:XR elbow LT min 3V Reviewed date:02/24/2025 12:23:58 PM Interpretation: Performing Lab: Notes/Report: Source Facility: [facility]-[address] [place] [address] [place] [address] XRay Report Signed Patient: DEMARCUS PANCHAL MR#: [id number] : 1955 Acct:[id number] Age/Sex: 70 / M ADM Date: 02/24/25 Loc: ER Attending Dr: Ordering Physician: Gilberto Alston Date of Service: 02/24/25 Procedure(s): XR elbow LT min 3V Accession Number(s): [id number] cc: Rk Klein M.D.; Gilberto Alston [place] [id number] Patient Name: DEMARCUS PANCHAL MRN: [facility]:[id number] date: 1955 Sex: M Assigned Patient Location: ER Current Patient Location: ER Accession/Order Number: [id number] Exam Date: 02/24/2025 11:22 Report Date: 02/24/2025 12:16 At the request of: GILBERTO ALSTON DO Procedure: XR elbow LT min 3V CLINICAL HISTORY: Left shoulder and elbow pain since fall 2 days ago LEFT SHOULDER - 3 views COMPARISON: None AP, Y and Grashey views were obtained. There is no evidence of fracture or dislocation. Minor degenerative changes visualized at the acromioclavicular joint and greater tuberosity. There are no significant soft tissue abnormalities. XR/XR elbow LT min 3V IMPRESSION: NO ACUTE BONY INJURY. LEFT ELBOW - 3 VIEWS COMPARISON: None AP, lateral and oblique views were obtained. There is no definite acute fracture or dislocation. Small enthesophytes are visualized at the humeral epicondyles and insertion of triceps at the posterior olecranon. There is minimal spurring at the trochlear notch. There is a tiny corticated bony density adjacent to the lateral radial neck which also appears chronic and may be degenerative. There are no significant soft tissue abnormalities. There is no elbow effusion. IMPRESSION: DEGENERATIVE CHANGES. NO DEFINITE ACUTE BONY INJURY. Impression dictated by: Lisa Barillas M.D. 02/24/2025 12:16 PM Dictation Location: [place] [address] Electronically authenticated by: [id number] Y Date: 02/24/2025 12:16 Dictated By: Lisa Barillas M.D. Signed By: 02/24/25 1219 DD/ 1216 TD/TT: Emergency Medicine:CBC AUTO DIFF Reviewed date:04/15/2025 12:40:43 PM Interpretation: Performing Lab: Notes/Report: [facility] ,White Blood Count10.54.0-11.0 10 3/uLRed Blood Count5.244.70-6.10 10 6/uL Mhpqrxvivv85.414.0-18.0 g/dEPgxdihhbuc01.242.0-54.0 %Mean Corpuscular Guqgng09.4 80.0-94.0 fLMean Corpuscular Udmaykdjbe10.525.9-34.0 pgMean Corpuscular HGB Conc 33.329.9-35.2 g/dLRed Cell Distribution Width15.611.0-15.0 %Platelet Khabh261 150-450 10 3/uLMean Platelet Volume9.79.5-13.5 fLNeutrophils Percent Auto72.4 43.0-75.0 %Lymphocytes Percent Auto11.320.5-60.0 %Monocytes Percent Auto10.01.7- 12.0 %Eosinophils Percent Auto5.50.9-7.0 %Basophils Percent Auto0.60.2-2.0 % Immature Granulocytes Pct Auto0.20.0-0.5 %Neutrophils Absolute Auto7.61.4-6.5 10 3/uLLymphocytes Absolute Auto1.21.2-3.8 10 3/uLMonocytes Absolute Auto1.10.3-0.8 10 3/uLEosinophils Absolute Auto0.60.0-0.7 10 3/uLBasophils Absolute Auto0.10.0- 0.1 10 3/uLImmature Granulocytes Abs Auto0.020.00-0.03 10 3/uLPerforming Lab:see noteML - [facility] LBCBC AUTO DIFF (Not yet reviewed by provider) Interpretation: Performing Lab: Notes/Report: [facility] ,White Blood Count9.14.0-11.0 10 3/uLRed Blood Count4.684.70-6.10 10 6/uL Hedexvhxsd33.214.0-18.0 g/vKMnrimwkxur69.342.0-54.0 %Mean Corpuscular Jwuszw43.8 80.0-94.0 fLMean Corpuscular Exupjybvrk71.225.9-34.0 pgMean Corpuscular HGB Conc 34.529.9-35.2 g/dLRed Cell Distribution Width15.811.0-15.0 %Platelet Gljsb890 150-450 10 3/uLMean Platelet Lnxvfx26.19.5-13.5 fLNeutrophils Percent Auto65.5 43.0-75.0 %Lymphocytes Percent Auto16.120.5-60.0 %Monocytes Percent Auto10.81.7- 12.0 %Eosinophils Percent Auto6.80.9-7.0 %Basophils Percent Auto0.50.2-2.0 % Immature Granulocytes Pct Auto0.30.0-0.5 %Neutrophils Absolute Auto6.01.4-6.5 10 3/uLLymphocytes Absolute Auto1.51.2-3.8 10 3/uLMonocytes Absolute Auto1.00.3-0.8 10 3/uLEosinophils Absolute Auto0.60.0-0.7 10 3/uLBasophils Absolute Auto0.10.0- 0.1 10 3/uLImmature Granulocytes Abs Auto0.030.00-0.03 10 3/uLPerforming Lab:see noteML - [facility] LBECG 12 lead (Not yet reviewed by provider) Interpretation: Performing Lab: Notes/Report: Source Facility: [place] [address] Electrocardiograph Report Draft Patient: DEMARCUS PANCHAL MR#: [id number] : 1955 Acct:[id number] Age/Sex: 70 / M ADM Date: Loc: ER Attending Dr: Ordering Physician: Indra Bernard M.D. Date of Service: 04/23/25 Procedure(s): ECG 12 lead Accession Number(s): [id number] cc: [facility] Test Date: 2025-04-23 Pat Name: DEMARCUS PANCHAL Department: Room: - Gender: Male Com Writer: : 1955 Requested By: 1030 Order Number: [id number] Reading MD: Measurements Intervals [place] Rate: 72 P: 32 VT: 160 QRS: 5 QRSD: 104 T: 100 QT: 392 QTc: 416 Interpretive Statements 1002 Marked rhythm irregularity, possible non-conducted PAC, SA block, AV block, or sinus pause 1100 Sinus rhythm 4068 Nonspecific Twave abnormality 9140 abnormal rhythm ECG No previous ECG available for comparison Dictated By: Bradley Burk Signed By: DD/ 0645 TD/TT: Emergency Medicine:Troponin I High Sensitivity Reviewed date:04/15/2025 12:40:42 PM Interpretation: Performing Lab: Notes/Report: [facility] ,Troponin I High Diehsgmhora09.54.0-76.1 pg/mL CUT-OFF POINTS HAVE BEEN ESTABLISHED BASED ON THE FOURTH UNIVERSAL DEFINITION OF MYOCARDIAL INFARCTION. THE UPPER REFERENCE LIMIT (URL) OF TROPONIN, DEFINED THE 99TH PERCENTILE OF cTnI DISTRIBUTION IN A REFERENCE POPULATION, HAS BEEN CONFIRMED THE DECISION THRESHOLD FOR RI DIAGNOSIS. 99TH PERCENTILE = 76.2 PG/ML NOTE: HIGH-SENSITIVITY TROPONIN ASSAY IS NOT INTENDED TO BE USED IN ISOLATION BUT SHOULD BE INTERPRETED IN CONJUNCTION WITH OTHER DIAGNOSTIC AND CLINICAL INFORMATION. Performing Lab:see noteML - [facility] LBXR chest 1V Reviewed date:04/15/2025 12:40:43 PM Interpretation: Performing Lab: Notes/Report: Source Facility: [place] [address] [place] [address] XRay Report Signed Patient: DEMARCUS PANCHAL MR#: [id number] : 1955 Acct:[id number] Age/Sex: 70 / M ADM Date: 04/15/25 Loc: ER Attending Dr: Ordering Physician: Indra Bernard M.D. Date of Service: 04/15/25 Procedure(s): XR chest 1V Accession Number(s): [id number] cc: Rk Klein M.D.; Indra Bernard M.D. [facility] [place] [id number] Patient Name: DEMARCUS PANCHAL MRN: [id number] date: 1955 Sex: M Assigned Patient Location: ER Current Patient Location: ED.MAIN Accession/Order Number: [id number] Exam Date: 04/15/2025 09:25 Report Date: 04/15/2025 09:38 At the request of: INDRA BERNARD MD Procedure: XR chest 1V PORTABLE AP ERECT CHEST 0925 hours CLINICAL HISTORY: Shortness of breath COMPARISON: 02/17/[address] 10/11/2024 The cardiac and mediastinal contours are similar. Chronic interstitial changes and subtle groundglass density are again noted. There is no new consolidation. There is no effusion or pneumothorax. The osseous structures are intact. XR/XR chest 1V IMPRESSION: CHRONIC CHANGES. NO ACUTE FINDINGS Impression dictated by: Lisa Barillas M.D. 04/15/2025 9:38 AM Dictation Location: [place] [address] Electronically authenticated by: [id number] Y Date: 04/15/2025 09:38 Dictated By: Lisa Barillas M.D. Signed By: 04/15/2541 DD/ 7 TD/TT: Emergency Medicine:ECG 12 lead Reviewed date:04/15/2025 06:13:41 PM Interpretation: Performing Lab: Notes/Report: Source Facility: [place] [address] Electrocardiograph Report Signed Patient: DEMARCUS PANCHAL MR#: [id number] : 1955 Acct:[id number] Age/Sex: 70 / M ADM Date: 04/15/25 Loc: ER Attending Dr: Ordering Physician: Indra Bernard M.D. Date of Service: 04/15/25 Procedure(s): ECG 12 lead Accession Number(s): [id number] cc: [facility] Test Date: 2025-04-15 Pat Name: DEMARCUS PANCHAL Department: Room: - Gender: Male Com Writer: : 1955 Requested By: 1030 Order Number: [id number] Shawn MD: LUBA ORTEGA Measurements Intervals [place] Rate: 81 P: 43 VT: 176 QRS: -4 QRSD: 102 T: 69 QT: 402 QTc: 439 Interpretive Statements 1100 Sinus rhythm Cannot rule out inferior myocardial infarction, age undetermined 4068 Nonspecific Twave abnormality 5211 Minimal voltage criteria for LVH, may be normal variant 9130 borderline ECG Compared to ECG 02/17/2025 13:41:43 Left ventricular hypertrophy now present Ventricular premature complex(es) no longer present Electronically Signed On 04-15-2025 16:16:25 EST by LUBA ORTEGA Dictated By: Luba Ortega M.D. Signed By: 04/15/25 1616 DD/ 0902 TD/TT: Emergency Medicine:SARS-CoV-2 Ag* Reviewed date:04/15/2025 12:40:43 PM Interpretation: Performing Lab: Notes/Report: [facility] ,SARS-CoV-2 AgNEGATIVENEGATIVE This test has not been FDA cleared [...] terminated or authorization is revoked sooner. Performing Lab:see noteML - [facility] LBTroponin I High Sensitivity Reviewed date:04/15/2025 12:40:43 PM Interpretation: Performing Lab: Notes/Report: [facility] ,Troponin I High Uddbbeegfob93.24.0-76.1 pg/mL CUT-OFF POINTS HAVE BEEN ESTABLISHED BASED ON THE FOURTH UNIVERSAL DEFINITION OF MYOCARDIAL INFARCTION. THE UPPER REFERENCE LIMIT (URL) OF TROPONIN, DEFINED THE 99TH PERCENTILE OF cTnI DISTRIBUTION IN A REFERENCE POPULATION, HAS BEEN CONFIRMED THE DECISION THRESHOLD FOR RI DIAGNOSIS. 99TH PERCENTILE = 76.2 PG/ML NOTE: HIGH-SENSITIVITY TROPONIN ASSAY IS NOT INTENDED TO BE USED IN ISOLATION BUT SHOULD BE INTERPRETED IN CONJUNCTION WITH OTHER DIAGNOSTIC AND CLINICAL INFORMATION. Performing Lab:see noteML - [facility] LBUA (CLEAN or CATCH) MICROSCOPIC IF INDICATE Reviewed date:04/15/2025 12:40:43 PM Interpretation: Performing Lab: Notes/Report: [facility] ,Color UrineLT. YELLOWYELLOWClarity UrineCLEARCLEARSpecific Hendricks Urine<=1.005 1.005-1.025pH Urine6.55.0-9.0Protein UrineNEGATIVENEG/TRACE mg/dLGlucose Urine UANEGATIVENEGATIVE mg/dLBilirubin UrineNEGATIVENEGATIVEKetones UrineNEGATIVE NEGATIVE mg/dLBlood UrineNEGATIVENEGATIVENitrite UrineNEGATIVENEGATIVE Urobilinogen Urine0.20.2-1.0 EU/dLLeukocyte Esterase UrineNEGATIVENEGATIVEUrine Microscopic IndicatedNOPerforming Lab:see note - [facility] LBPROF CHEM 8 (BAS METB) Reviewed date:04/15/2025 12:40:43 PM Interpretation: Performing Lab: Notes/Report: [facility] ,Pdmmlk403223-353 mmol/LPotassium3.93.5-5.1 mmol/YPtxzfwhl72795-498 mmol/LCarbon Mxuvqal79.421.0-32.0 mmol/LAnion Gap8.7Fmapves17298-314 mg/dLBlood Urea Nitrogen 12.07.0-18.0 mg/dLCreatinine0.950.70-1.30 mg/dLEstimated GFR ( Joyce>60 >=60 mL/min/1.73m 2Estimated GFR (Non- Lulu>60>=60 mL/min/1.73m 2BUN Creatinine Ratio12.9Peqyxak4.98.5-10.1 mg/dLPerforming Lab:see noteML - [facility] LBINFLUENZA A AND B AG Reviewed date:04/15/2025 12:40:43 PM Interpretation: Performing Lab: Notes/Report: [facility] ,Influenza Virus A AntigenNegative Negative for Flu A protein antigen. Infection due to Flu A cannot be ruled out. Flu A antigen in the sample may be below the detection limit of the test. Influenza Virus B AntigenNegative Negative for Flu B protein antigen. Infection due to Flu B cannot be ruled out. Flu B antigen in the sample may be below the detection limit of the test. Performing Lab:see noteML - [facility] LBBNP Reviewed date:04/15/2025 12:40:43 PM Interpretation: Performing Lab: Notes/Report: [facility] ,NT Pro B Type Natriuretic Amwk5773.0<=900.0 pg/mLPerforming Lab:see noteML - [facility] LBPSA SCREENING Reviewed date:03/16/2025 12:26:36 PM Interpretation: Performing Lab: Notes/Report: [facility] ,Prostate Specific Antigen Scrn6.29<=4.00 ng/mLPerforming Lab:see noteML - [facility] LBGLYCOHEMOGLOBIN A1C Reviewed date:03/16/2025 12:26:36 PM Interpretation: Performing Lab: Notes/Report: [facility] ,Glycohemoglobin A1C6.24.5-6.2 % ADA RECOMMENDED LIMIT 4.0 - 6.0 ADA THERAPEUTIC TARGET < 7.0 ACTION SUGGESTED > 7.0 Estimated Average Oxgemqc965Zaoxcajwod Lab:see noteML - [facility] LB CBC AUTO DIFF Reviewed date:03/16/2025 12:26:36 PM Interpretation: Performing Lab: Notes/Report: [facility] ,White Blood Count9.14.0-11.0 10 3/uLRed Blood Count5.434.70-6.10 10 6/uL Zityqjnhsb94.214.0-18.0 g/gMDybjfymmcz59.242.0-54.0 %Mean Corpuscular Vuegmr17.4 80.0-94.0 fLMean Corpuscular Wjeuvofspu18.025.9-34.0 pgMean Corpuscular HGB Conc 34.429.9-35.2 g/dLRed Cell Distribution Width15.411.0-15.0 %Platelet Uoifc469 150-450 10 3/uLMean Platelet Bwublh13.49.5-13.5 fLNeutrophils Percent Auto61.8 43.0-75.0 %Lymphocytes Percent Auto19.320.5-60.0 %Monocytes Percent Auto10.51.7- 12.0 %Eosinophils Percent Auto7.60.9-7.0 %Basophils Percent Auto0.70.2-2.0 % Immature Granulocytes Pct Auto0.10.0-0.5 %Neutrophils Absolute Auto5.61.4-6.5 10 3/uLLymphocytes Absolute Auto1.81.2-3.8 10 3/uLMonocytes Absolute Auto1.00.3-0.8 10 3/uLEosinophils Absolute Auto0.70.0-0.7 10 3/uLBasophils Absolute Auto0.10.0- 0.1 10 3/uLImmature Granulocytes Abs Auto0.010.00-0.03 10 3/uLPerforming Lab:see noteML - [facility] LBECG 12 lead Reviewed date:02/17/2025 08:43:01 PM Interpretation: Performing Lab: Notes/Report: Source Facility: [facility]-[address] [place] [address] Electrocardiograph Report Signed Patient: DEMARCUS PANCHAL MR#: [id number] : 1955 Acct:[id number] Age/Sex: 70 / M ADM Date: 02/17/25 Loc: ER Attending Dr: Ordering Physician: Adrian Mccoy Date of Service: 02/17/25 Procedure(s): ECG 12 lead Accession Number(s): [id number] cc: [facility] Test Date: 2025-02-17 Pat Name: DEMARCUS PANCHAL Department: Room: - Gender: Male Com Writer: : 1955 Requested By: 1453 Order Number: [id number] Reading MD: MELANY CHEN M.D. Measurements Intervals [place] Rate: 73 P: 58 VT: 174 QRS: 4 QRSD: 98 T: 104 QT: 404 QTc: 431 Interpretive Statements 1100 Sinus rhythm 1570 with occasional ventricular premature complexes 3613 Cannot rule out inferior myocardial infarction, probably old 9150 abnormal ECG Compared to ECG 10/18/2024 20:37:49 Ventricular premature complex(es) now present Myocardial infarct finding now present Left ventricular hypertrophy no longer present Electronically Signed On 02-17-2025 18:07:10 EDT by MELANY CHEN M.D. Dictated By: MELANY CHEN Signed By: 02/17/25 8257 DD/ 1341 TD/TT: Emergency Medicine:SARS-CoV-2 Ag* Reviewed date:02/17/2025 03:00:43 PM Interpretation: Performing Lab: Notes/Report: [facility] ,SARS-CoV-2 AgNEGATIVENEGATIVE This test has not been FDA cleared [...] terminated or authorization is revoked sooner. Performing Lab:see noteML - [facility] LBLACTATE or LACTIC ACID Reviewed date:02/17/2025 03:00:43 PM Interpretation: Performing Lab: Notes/Report: [facility] ,Lactate/Lactic Acid1.50.4-2.0 mmol/LPerforming Lab:see noteML - [facility] LBINFLUENZA A AND B AG Reviewed date:02/17/2025 05:44:59 PM Interpretation: Performing Lab: Notes/Report: [facility] ,Influenza Virus A AntigenNegative Negative for Flu A protein antigen. Infection due to Flu A cannot be ruled out. Flu A antigen in the sample may be below the detection limit of the test. Influenza Virus B AntigenNegative Negative for Flu B protein antigen. Infection due to Flu B cannot be ruled out. Flu B antigen in the sample may be below the detection limit of the test. Performing Lab:see noteML - [facility] LBCBC AUTO DIFF Reviewed date:02/17/2025 03:00:43 PM Interpretation: Performing Lab: Notes/Report: [facility] ,White Blood Count8.14.0-11.0 10 3/uLRed Blood Count5.284.70-6.10 10 6/uL Aiadksvoqi04.414.0-18.0 g/kAYxyypncozp83.542.0-54.0 %Mean Corpuscular Odxjon01.4 80.0-94.0 fLMean Corpuscular Mdyflfwbuj16.325.9-34.0 pgMean Corpuscular HGB Conc 33.129.9-35.2 g/dLRed Cell Distribution Width14.211.0-15.0 %Platelet Lgdvg076 150-450 10 3/uLMean Platelet Fjadpw46.39.5-13.5 fLNeutrophils Percent Auto56.8 43.0-75.0 %Lymphocytes Percent Auto19.420.5-60.0 %Monocytes Percent Auto13.81.7- 12.0 %Eosinophils Percent Auto8.90.9-7.0 %Basophils Percent Auto0.90.2-2.0 % Immature Granulocytes Pct Auto0.20.0-0.5 %Neutrophils Absolute Auto4.61.4-6.5 10 3/uLLymphocytes Absolute Auto1.61.2-3.8 10 3/uLMonocytes Absolute Auto1.10.3-0.8 10 3/uLEosinophils Absolute Auto0.70.0-0.7 10 3/uLBasophils Absolute Auto0.10.0- 0.1 10 3/uLImmature Granulocytes Abs Auto0.020.00-0.03 10 3/uLPerforming Lab:see noteML - [facility] LBPROF CHEM 8 (BAS METB) Reviewed date:10/21/2024 01:00:15 PM Interpretation: Performing Lab: Notes/Report: [facility] ,Tnwmty055186-378 mmol/LPotassium3.73.5-5.1 mmol/OCscxyxqt1148-104 mmol/LCarbon Dbhnvxb81.321.0-32.0 mmol/LAnion Gap14.3Zzmxnci87249-183 mg/dLBlood Urea Sjreasav32.07.0-18.0 mg/dLCreatinine1.370.70-1.30 mg/dLEstimated GFR ( Joyce>60>=60 mL/min/1.73m 2Estimated GFR (Non- Ame51>=60 mL/min/1.73m 2 BUN Creatinine Ratio27.3Nrnikdf7.28.5-10.1 mg/dLPerforming Lab:see noteML - [facility] LBCBC AUTO DIFF Reviewed date:10/21/2024 01:00:15 PM Interpretation: Performing Lab: Notes/Report: [facility] ,White Blood Count13.54.0-11.0 10 3/uLRed Blood Count5.124.70-6.10 10 6/uL Rfblzlptre12.714.0-18.0 g/fLUvyyflqefh48.442.0-54.0 %Mean Corpuscular Hizrhy91.8 80.0-94.0 fLMean Corpuscular Jrfdkuqxpv73.725.9-34.0 pgMean Corpuscular HGB Conc 34.729.9-35.2 g/dLRed Cell Distribution Width14.611.0-15.0 %Platelet Luaza136 150-450 10 3/uLMean Platelet Arplic90.09.5-13.5 fLNeutrophils Percent Auto75.6 43.0-75.0 %Lymphocytes Percent Auto14.020.5-60.0 %Monocytes Percent Auto8.81.7- 12.0 %Eosinophils Percent Auto0.10.9-7.0 %Basophils Percent Auto0.20.2-2.0 % Immature Granulocytes Pct Auto1.30.0-0.5 %Neutrophils Absolute Auto10.21.4-6.5 10 3/uLLymphocytes Absolute Auto1.91.2-3.8 10 3/uLMonocytes Absolute Auto1.20.3- 0.8 10 3/uLEosinophils Absolute Auto0.00.0-0.7 10 3/uLBasophils Absolute Auto0.0 0.0-0.1 10 3/uLImmature Granulocytes Abs Auto0.170.00-0.03 10 3/uLPerforming Lab:see noteML - [facility] LBPROF CHEM 8 (BAS METB) Reviewed date:10/20/2024 03:22:57 PM Interpretation: Performing Lab: Notes/Report: [facility] ,Pmzbdu258695-062 mmol/LPotassium4.23.5-5.1 mmol/BBqibsmoa9656-280 mmol/LCarbon Vfmdbhb23.021.0-32.0 mmol/LAnion Gap14.4Yvmdhba41334-898 mg/dLBlood Urea Tqktnbms94.07.0-18.0 mg/dLCreatinine1.140.70-1.30 mg/dLEstimated GFR ( Joyce>60>=60 mL/min/1.73m 2Estimated GFR (Non- Lulu>60>=60 mL/min/1.73m 2BUN Creatinine Ratio26.9Qultbzx9.98.5-10.1 mg/dLPerforming Lab:see noteML - [facility] LBCBC AUTO DIFF Reviewed date:10/20/2024 03:22:57 PM Interpretation: Performing Lab: Notes/Report: [facility] ,White Blood Count15.24.0-11.0 10 3/uLRed Blood Count4.944.70-6.10 10 6/uL Szruxtfkkh14.014.0-18.0 g/rUYbgxrgcjxq29.342.0-54.0 %Mean Corpuscular Pbybcr67.6 80.0-94.0 fLMean Corpuscular Jqbzotazgi62.325.9-34.0 pgMean Corpuscular HGB Conc 33.929.9-35.2 g/dLRed Cell Distribution Width14.511.0-15.0 %Platelet Nvqfs219 150-450 10 3/uLMean Platelet Cdmuud06.39.5-13.5 fLNeutrophils Percent Auto80.5 43.0-75.0 %Lymphocytes Percent Auto9.020.5-60.0 %Monocytes Percent Auto8.61.7- 12.0 %Eosinophils Percent Auto0.10.9-7.0 %Basophils Percent Auto0.10.2-2.0 % Immature Granulocytes Pct Auto1.70.0-0.5 %Neutrophils Absolute Auto12.21.4-6.5 10 3/uLLymphocytes Absolute Auto1.41.2-3.8 10 3/uLMonocytes Absolute Auto1.30.3- 0.8 10 3/uLEosinophils Absolute Auto0.00.0-0.7 10 3/uLBasophils Absolute Auto0.0 0.0-0.1 10 3/uLImmature Granulocytes Abs Auto0.260.00-0.03 10 3/uLPerforming Lab:[facility] LBBNP Reviewed date:10/20/2024 03:22:57 PM Interpretation: Performing Lab: Notes/Report: [facility] ,NT Pro B Type Natriuretic Pept72.0<=900.0 pg/mLPerforming Lab:[facility] noteThe [facility] LBTroponin I High Sensitivity Reviewed date:10/20/2024 03:22:57 PM Interpretation: Performing Lab: Notes/Report: [facility] ,Troponin I High Qhsxtzrecvv83.14.0-76.1 pg/mL CUT-OFF POINTS HAVE BEEN ESTABLISHED BASED ON THE FOURTH UNIVERSAL DEFINITION OF MYOCARDIAL INFARCTION. THE UPPER REFERENCE LIMIT (URL) OF TROPONIN, DEFINED THE 99TH PERCENTILE OF cTnI DISTRIBUTION IN A REFERENCE POPULATION, HAS BEEN CONFIRMED THE DECISION THRESHOLD FOR RI DIAGNOSIS. 99TH PERCENTILE = 76.2 PG/ML NOTE: HIGH-SENSITIVITY TROPONIN ASSAY IS NOT INTENDED TO BE USED IN ISOLATION BUT SHOULD BE INTERPRETED IN CONJUNCTION WITH OTHER DIAGNOSTIC AND CLINICAL INFORMATION. Performing Lab:see note - [facility] LBResult 2 Reviewed date:10/22/2024 06:07:56 PM Interpretation: Performing Lab: Notes/Report: [facility] ,Result 2See Below For Report Result 2 Few budding yeast present. Performing Lab:see noteLC - [facility] LBResult 1 Reviewed date:10/22/2024 06:07:56 PM Interpretation: Performing Lab: Notes/Report: [facility] ,Result 1See Below For Report Result 1 Few gram positive cocci Performing Lab:see noteLC - [facility] LBEpithelial Cells Reviewed date:10/22/2024 06:07:56 PM Interpretation: Performing Lab: Notes/Report: [facility] ,Epithelial CellsSee Below For Report Epithelial Cells Few Performing Lab:see noteLC - [facility] LBWhite Blood Cells Reviewed date:10/22/2024 06:07:56 PM Interpretation: Performing Lab: Notes/Report: [facility] ,White Blood CellsSee Below For Report White Blood Cells White Blood CellsFew White Blood Cells Performing Lab:see noteLC - [facility] LBTroponin I High Sensitivity Reviewed date:10/20/2024 03:22:57 PM Interpretation: Performing Lab: Notes/Report: [facility] ,Troponin I High Rrusnzrdblv43.54.0-76.1 pg/mL CUT-OFF POINTS HAVE BEEN ESTABLISHED BASED ON THE FOURTH UNIVERSAL DEFINITION OF MYOCARDIAL INFARCTION. THE UPPER REFERENCE LIMIT (URL) OF TROPONIN, DEFINED THE 99TH PERCENTILE OF cTnI DISTRIBUTION IN A REFERENCE POPULATION, HAS BEEN CONFIRMED THE DECISION THRESHOLD FOR RI DIAGNOSIS. 99TH PERCENTILE = 76.2 PG/ML NOTE: HIGH-SENSITIVITY TROPONIN ASSAY IS NOT INTENDED TO BE USED IN ISOLATION BUT SHOULD BE INTERPRETED IN CONJUNCTION WITH OTHER DIAGNOSTIC AND CLINICAL INFORMATION. Performing Lab:see note - [facility] LBPROF 14(COMP METB) Reviewed date:10/20/2024 03:22:57 PM Interpretation: Performing Lab: Notes/Report: [facility] ,Ryluuw459264-520 mmol/LPotassium4.33.5-5.1 mmol/LDekodixu0581-231 mmol/LCarbon Ldolokl70.021.0-32.0 mmol/LAnion Gap14.1Msdqlpf13912-667 mg/dLBlood Urea Ohchoeid00.07.0-18.0 mg/dLCreatinine0.930.70-1.30 mg/dLEstimated GFR ( Joyce>60>=60 mL/min/1.73m 2Estimated GFR (Non- Lulu>60>=60 mL/min/1.73m 2BUN Creatinine Ratio24.9Jecmxyd0.58.5-10.1 mg/dLBilirubin Total0.70.2-1.0 mg/dL Aspartate Amino Gcxkalghrsu1175-61 U/LAlanine Gjnnyrybsgymmbrj1743-27 U/L Alkaline Llholtfnfuy1920-497 U/LTotal Protein6.36.4-8.2 g/dLAlbumin Level2.73.4- 5.0 g/dLGlobulin3.6Albumin Globulin Ratio0.8Performing Lab:see note - [facility] LBMAGNESIUM Reviewed date:10/20/2024 03:22:57 PM Interpretation: Performing Lab: Notes/Report: [facility] ,Magnesium2.11.8-2.4 mg/dLPerforming Lab:see noteThe [facility] LB CBC AUTO DIFF Reviewed date:10/20/2024 03:22:57 PM Interpretation: Performing Lab: Notes/Report: [facility] ,White Blood Count7.84.0-11.0 10 3/uLRed Blood Count4.924.70-6.10 10 6/uL Obgvgxjvpj46.414.0-18.0 g/kIFinqibdixd75.642.0-54.0 %Mean Corpuscular Ifrusl00.5 80.0-94.0 fLMean Corpuscular Pyphtajjbw32.325.9-34.0 pgMean Corpuscular HGB Conc 35.529.9-35.2 g/dLRed Cell Distribution Width14.111.0-15.0 %Platelet Reqzt808 150-450 10 3/uLMean Platelet Euqshr85.09.5-13.5 fLNeutrophils Percent Auto85.9 43.0-75.0 %Lymphocytes Percent Auto8.720.5-60.0 %Monocytes Percent Auto1.91.7- 12.0 %Eosinophils Percent Auto0.30.9-7.0 %Basophils Percent Auto0.10.2-2.0 % Immature Granulocytes Pct Auto3.10.0-0.5 %Neutrophils Absolute Auto6.71.4-6.5 10 3/uLLymphocytes Absolute Auto0.71.2-3.8 10 3/uLMonocytes Absolute Auto0.20.3-0.8 10 3/uLEosinophils Absolute Auto0.00.0-0.7 10 3/uLBasophils Absolute Auto0.00.0- 0.1 10 3/uLImmature Granulocytes Abs Auto0.240.00-0.03 10 3/uLPerforming Lab:see noteML - [facility] LBTroponin I High Sensitivity Reviewed date:10/20/2024 03:22:57 PM Interpretation: Performing Lab: Notes/Report: [facility] ,Troponin I High Fahyzldgqta28.44.0-76.1 pg/mL CUT-OFF POINTS HAVE BEEN ESTABLISHED BASED ON THE FOURTH UNIVERSAL DEFINITION OF MYOCARDIAL INFARCTION. THE UPPER REFERENCE LIMIT (URL) OF TROPONIN, DEFINED THE 99TH PERCENTILE OF cTnI DISTRIBUTION IN A REFERENCE POPULATION, HAS BEEN CONFIRMED THE DECISION THRESHOLD FOR RI DIAGNOSIS. 99TH PERCENTILE = 76.2 PG/ML NOTE: HIGH-SENSITIVITY TROPONIN ASSAY IS NOT INTENDED TO BE USED IN ISOLATION BUT SHOULD BE INTERPRETED IN CONJUNCTION WITH OTHER DIAGNOSTIC AND CLINICAL INFORMATION. Performing Lab:see noteML - [facility] LBECG 12 lead Reviewed date:10/20/2024 03:22:57 PM Interpretation: Performing Lab: Notes/Report: Source Facility: [facility]-[address] [place] [address] [place] [address] Electrocardiograph Report Signed Patient: DEMARCUS PANCHAL MR#: [id number] : 1955 Acct:[id number] Age/Sex: 69 / M ADM Date: 10/18/24 Loc: MS 231-[address]: Rk Klein M.D. Ordering Physician: Daren Mendoza D.O. Date of Service: 10/18/24 Procedure(s): ECG 12 lead Accession Number(s): [id number] cc: [facility] Test Date: 2024-10-18 Pat Name: DEMARCUS PANCHAL Department: Room: - Gender: Male Com Writer: : 1955 Requested By: Daren Mendoza Order Number: [id number] Reading MD: MELANY CHEN M.D. Measurements Intervals [place] Rate: 84 P: 32 VT: 164 QRS: -9 QRSD: 100 T: 120 QT: 372 QTc: 413 Interpretive Statements 1100 Sinus rhythm 5234 Left ventricular hypertrophy with repolarization abnormality 9150 abnormal ECG Compared to ECG 10/16/2024 09:11:58 No significant changes Electronically Signed On 10-19-2024 13:49:25 EDT by MELANY CHEN M.D. Dictated By: MELANY CHEN Signed By: 10/19/24 1349 DD/ 36 TD/TT: Emergency Medicine:Troponin I High Sensitivity Reviewed date:10/20/2024 03:22:57 PM Interpretation: Performing Lab: Notes/Report: [facility] ,Troponin I High Vcllwrtfvkn08.34.0-76.1 pg/mL CUT-OFF POINTS HAVE BEEN ESTABLISHED BASED ON THE FOURTH UNIVERSAL DEFINITION OF MYOCARDIAL INFARCTION. THE UPPER REFERENCE LIMIT (URL) OF TROPONIN, DEFINED THE 99TH PERCENTILE OF cTnI DISTRIBUTION IN A REFERENCE POPULATION, HAS BEEN CONFIRMED THE DECISION THRESHOLD FOR RI DIAGNOSIS. 99TH PERCENTILE = 76.2 PG/ML NOTE: HIGH-SENSITIVITY TROPONIN ASSAY IS NOT INTENDED TO BE USED IN ISOLATION BUT SHOULD BE INTERPRETED IN CONJUNCTION WITH OTHER DIAGNOSTIC AND CLINICAL INFORMATION. Performing Lab:see noteML - [facility] LBUA RANDOM W or MICROSCOPIC Reviewed date:10/20/2024 03:22:57 PM Interpretation: Performing Lab: Notes/Report: [facility] ,Color UrineLT. YELLOWYELLOWClarity UrineCLEARCLEARSpecific Hendricks Urine1.010 1.005-1.025pH Urine6.05.0-9.0Protein UrineNEGATIVENEG/TRACE mg/dLGlucose Urine UA>=1000NEGATIVE mg/dLBilirubin UrineNEGATIVENEGATIVEKetones UrineNEGATIVE NEGATIVE mg/dLBlood UrineNEGATIVENEGATIVENitrite UrineNEGATIVENEGATIVE Urobilinogen Urine0.20.2-1.0 EU/dLLeukocyte Esterase UrineNEGATIVENEGATIVEWBC UrineNONE SEENNONE SEEN #/HPFRBC UrineNONE SEEN0-2 #/HPFBacteria UrineTRACENONE SEEN #/HPFMucus UrineNONE SEENNONE SEENSquamous Epithelial Cell UrineNONE SEEN NONE/RARE #/LPFCrystals Seen?None SeenNone Seen #/HPFCast Seen?NONE SEENNONE SEEN #/LPFPerforming Lab:see noteML - [facility] LBTSH Reviewed date:10/20/2024 03:22:57 PM Interpretation: Performing Lab: Notes/Report: [facility] ,Thyroid Stimulating Hormone3.4290.358-3.740 uIU/mLPerforming Lab:see noteML - [facility] LBPROF 14(COMP METB) Reviewed date:10/20/2024 03:22:57 PM Interpretation: Performing Lab: Notes/Report: [facility] ,Ehkacc454743-181 mmol/LPotassium4.13.5-5.1 mmol/AChxgszzx7272-282 mmol/LCarbon Dixmmbp38.021.0-32.0 mmol/LAnion Gap12.5Ikxkfzg72347-068 mg/dLBlood Urea Uosevesb35.07.0-18.0 mg/dLCreatinine0.910.70-1.30 mg/dLEstimated GFR ( Joyce>60>=60 mL/min/1.73m 2Estimated GFR (Non- Lulu>60>=60 mL/min/1.73m 2BUN Creatinine Ratio25.3Jruggey9.88.5-10.1 mg/dLBilirubin Total0.70.2-1.0 mg/dL Aspartate Amino Glrngorotmd0895-55 U/LAlanine Rapfoqgngbvqtrjk1419-04 U/L Alkaline Vqxsrmsfbji8394-989 U/LTotal Protein6.46.4-8.2 g/dLAlbumin Level2.83.4- 5.0 g/dLGlobulin3.6Albumin Globulin Ratio0.8Performing Lab:see noteML - [facility] LBLACTATE or LACTIC ACID Reviewed date:10/20/2024 03:22:57 PM Interpretation: Performing Lab: Notes/Report: [facility] ,Lactate/Lactic Acid1.70.4-2.0 mmol/LPerforming Lab:see noteML - [facility] LBCBC AUTO DIFF Reviewed date:10/20/2024 03:22:57 PM Interpretation: Performing Lab: Notes/Report: [facility] ,White Blood Count11.84.0-11.0 10 3/uLRed Blood Count4.954.70-6.10 10 6/uL Rwufwndstr72.314.0-18.0 g/pHBfmpmtpkpv82.242.0-54.0 %Mean Corpuscular Phzxlh09.2 80.0-94.0 fLMean Corpuscular Tkbmiueilp27.925.9-34.0 pgMean Corpuscular HGB Conc 34.729.9-35.2 g/dLRed Cell Distribution Width14.211.0-15.0 %Platelet Uxunq878 150-450 10 3/uLMean Platelet Vvmyrl25.09.5-13.5 fLNeutrophils Percent Auto69.1 43.0-75.0 %Lymphocytes Percent Auto13.120.5-60.0 %Monocytes Percent Auto11.51.7- 12.0 %Eosinophils Percent Auto3.80.9-7.0 %Basophils Percent Auto0.20.2-2.0 % Immature Granulocytes Pct Auto2.30.0-0.5 %Neutrophils Absolute Auto8.11.4-6.5 10 3/uLLymphocytes Absolute Auto1.61.2-3.8 10 3/uLMonocytes Absolute Auto1.40.3-0.8 10 3/uLEosinophils Absolute Auto0.50.0-0.7 10 3/uLBasophils Absolute Auto0.00.0- 0.1 10 3/uLImmature Granulocytes Abs Auto0.270.00-0.03 10 3/uLPerforming Lab:see noteML - [facility] LBBNP Reviewed date:10/20/2024 03:22:57 PM Interpretation: Performing Lab: Notes/Report: [facility] ,NT Pro B Type Natriuretic Pept70.0<=900.0 pg/mLPerforming Lab:see noteML - [facility] LBTroponin I High Sensitivity Reviewed date:10/16/2024 12:36:43 PM Interpretation: Performing Lab: Notes/Report: Comment From blood drawn earlier this am? [facility] ,Troponin I High Uwzccetooav00.64.0-76.1 pg/mL CUT-OFF POINTS HAVE BEEN ESTABLISHED BASED ON THE FOURTH UNIVERSAL DEFINITION OF MYOCARDIAL INFARCTION. THE UPPER REFERENCE LIMIT (URL) OF TROPONIN, DEFINED THE 99TH PERCENTILE OF cTnI DISTRIBUTION IN A REFERENCE POPULATION, HAS BEEN CONFIRMED THE DECISION THRESHOLD FOR RI DIAGNOSIS. 99TH PERCENTILE = 76.2 PG/ML NOTE: HIGH-SENSITIVITY TROPONIN ASSAY IS NOT INTENDED TO BE USED IN ISOLATION BUT SHOULD BE INTERPRETED IN CONJUNCTION WITH OTHER DIAGNOSTIC AND CLINICAL INFORMATION. Performing Lab:see noteML - [facility] LBPROF CHEM 8 (BAS METB) Reviewed date:10/16/2024 12:36:43 PM Interpretation: Performing Lab: Notes/Report: [facility] ,Ueulaz141124-460 mmol/LPotassium4.13.5-5.1 mmol/IYsporamc34805-942 mmol/LCarbon Wgvveyp58.821.0-32.0 mmol/LAnion Gap15.8Drgpvfg25397-993 mg/dLBlood Urea Ahdyezud50.07.0-18.0 mg/dLCreatinine1.010.70-1.30 mg/dLEstimated GFR ( Joyce>60>=60 mL/min/1.73m 2Estimated GFR (Non- Lulu>60>=60 mL/min/1.73m 2BUN Creatinine Ratio22.2Qomcshi4.78.5-10.1 mg/dLPerforming Lab:see noteML - [facility] LBCBC AUTO DIFF Reviewed date:10/16/2024 12:36:43 PM Interpretation: Performing Lab: Notes/Report: [facility] ,White Blood Count12.04.0-11.0 10 3/uLRed Blood Count4.904.70-6.10 10 6/uL Wquejaqetn31.914.0-18.0 g/sZPfokdrteyd43.442.0-54.0 %Mean Corpuscular Etfrmg55.5 80.0-94.0 fLMean Corpuscular Ljbzuxqdcz38.425.9-34.0 pgMean Corpuscular HGB Conc 33.629.9-35.2 g/dLRed Cell Distribution Width14.311.0-15.0 %Platelet Tvzqh387 150-450 10 3/uLMean Platelet Volume9.79.5-13.5 fLPerforming Lab:see noteML - [facility] LBCA echo doppler complete Reviewed date:10/16/2024 12:36:43 PM Interpretation: Performing Lab: Notes/Report: Source Facility: [facility]-[address] [place] [address] [place] [address] Cardiology Report Signed Patient: DEMARCUS PANCHAL MR#: [id number] : 1955 Acct:[id number] Age/Sex: 69 / M ADM Date: 10/09/24 Loc: MS 219-[address]: Rk Klein M.D. Ordering Physician: Rk Klein M.D. Date of Service: 10/15/24 Procedure(s): CA echo doppler complete Accession Number(s): [id number] cc: Rk Klein M.D. Patient Name: DEMARCUS PANCHAL MR#: [id number] : 1955 Exam Date: 10/15/2024 Ordering Doctor: DR RK KLEIN . ECHOCARDIOGRAM REPORT PROCEDURE: CA ECHO DOPPLER COMPLETE INDICATIONS: Congestive heart failure, RI, cardiac stent, COPD, emphysema, hypertension COMPARISON: None. [...] CHEN Signed By: 10/15/241921 DD/ 20 TD/TT: Emergency Medicine:Manual Differential Reviewed date:10/15/2024 09:07:07 AM Interpretation: Performing Lab: Notes/Report: [facility] ,Segmented Neutrophils % Rdihke00.043.0-75.0Lymphocytes Percent Mffmtv26.020.5- 60.0 %Monocytes Percent Manual9.01.7-12.0 %Eosinophils Percent Manual1.00.9-7.0 %Basophils Percent Manual0.00.2-2.0 %Atypical Lymphocytes % Manual6.0Segmented Neut Absolute Manual7.651.4-6.5 10 3/uLLymphocytes Absolute Manual2.201.20-3.80 10 3/uLMonocytes Absolute Manual1.040.30-0.80 10 3/uLEosinophils Absolute Manual 0.110.00-0.70 10 3/uLBasophils Abs Manual0.000.00-0.10 10 3/uLAtypical Lymphocytes Abs Man0.69Performing Lab:see note - [facility] LBPROF CHEM 8 (BAS METB) Reviewed date:10/15/2024 09:07:07 AM Interpretation: Performing Lab: Notes/Report: [facility] ,Nzvldg396213-008 mmol/LPotassium3.13.5-5.1 mmol/UIcvmutjl1205-875 mmol/LCarbon Hnjfuwt72.921.0-32.0 mmol/LAnion Gap13.7Mhykeqg12991-750 mg/dLBlood Urea Gmvjdeot26.07.0-18.0 mg/dLCreatinine1.490.70-1.30 mg/dLEstimated GFR ( Fpvexwc97>=60 mL/min/1.73m 2Estimated GFR (Non- Ame46>=60 mL/min/1.73m 2 BUN Creatinine Ratio18.0Wjwrwnk6.88.5-10.1 mg/dLPerforming Lab:see note - [facility] LBCBC AUTO DIFF Reviewed date:10/15/2024 09:07:07 AM Interpretation: Performing Lab: Notes/Report: [facility] ,White Blood Count11.64.0-11.0 10 3/uLRed Blood Count4.654.70-6.10 10 6/uL Hctgcbbfiw71.214.0-18.0 g/oNNlwoacbrcp57.642.0-54.0 %Mean Corpuscular Cyeabm45.0 80.0-94.0 fLMean Corpuscular Dstrymwvdf05.425.9-34.0 pgMean Corpuscular HGB Conc 34.229.9-35.2 g/dLRed Cell Distribution Width14.111.0-15.0 %Platelet Yrfcd602 150-450 10 3/uLMean Platelet Volume9.79.5-13.5 fLPerforming Lab:see note - [facility] LBPROF CHEM 8 (BAS METB) Reviewed date:10/14/2024 06:07:04 PM Interpretation: Performing Lab: Notes/Report: [facility] ,Xnmjzv774634-287 mmol/LPotassium3.43.5-5.1 mmol/MWvpmyzns39238-525 mmol/LCarbon Jlqczpw76.821.0-32.0 mmol/LAnion Gap12.0Nnkkatr31713-711 mg/dLBlood Urea Qmifgupi03.07.0-18.0 mg/dLCreatinine1.040.70-1.30 mg/dLEstimated GFR ( Joyce>60>=60 mL/min/1.73m 2Estimated GFR (Non- Lulu>60>=60 mL/min/1.73m 2BUN Creatinine Ratio21.9Zpcygvu9.08.5-10.1 mg/dLPerforming Lab:see noteML - [facility] LBCBC AUTO DIFF Reviewed date:10/14/2024 06:07:04 PM Interpretation: Performing Lab: Notes/Report: [facility] ,White Blood Count11.64.0-11.0 10 3/uLRed Blood Count4.344.70-6.10 10 6/uL Ftvkspecve45.414.0-18.0 g/iPJdbxnfltei15.242.0-54.0 %Mean Corpuscular Tytrtk42.4 80.0-94.0 fLMean Corpuscular Qtajbfbgij06.625.9-34.0 pgMean Corpuscular HGB Conc 34.329.9-35.2 g/dLRed Cell Distribution Width14.211.0-15.0 %Platelet Jxtno971 150-450 10 3/uLMean Platelet Volume9.99.5-13.5 fLNeutrophils Percent Auto75.6 43.0-75.0 %Lymphocytes Percent Auto14.920.5-60.0 %Monocytes Percent Auto6.41.7- 12.0 %Eosinophils Percent Auto0.20.9-7.0 %Basophils Percent Auto0.30.2-2.0 % Immature Granulocytes Pct Auto2.60.0-0.5 %Neutrophils Absolute Auto8.81.4-6.5 10 3/uLLymphocytes Absolute Auto1.71.2-3.8 10 3/uLMonocytes Absolute Auto0.70.3- 0.8 10 3/uLEosinophils Absolute Auto0.00.0-0.7 10 3/uLBasophils Absolute Auto0.0 0.0-0.1 10 3/uLImmature Granulocytes Abs Auto0.300.00-0.03 10 3/uLPerforming Lab:see note - [facility] LBBNP Reviewed date:10/14/2024 06:07:04 PM Interpretation: Performing Lab: Notes/Report: [facility] ,NT Pro B Type Natriuretic Exmq0463.0<=900.0 pg/mL RESULTS CALLED TO PAUL HURST RN @BY Leta Martin at 0632 Performing Lab:see [facility] LBPROF CHEM 8 (BAS METB) Reviewed date:10/13/2024 12:53:09 PM Interpretation: Performing Lab: Notes/Report: [facility] ,Efeomo666786-570 mmol/LPotassium3.83.5-5.1 mmol/HXxcmymrq89480-459 mmol/LCarbon Mricffi52.221.0-32.0 mmol/LAnion Gap12.4Gzibbyl93640-533 mg/dLBlood Urea Rpimukwd51.07.0-18.0 mg/dLCreatinine1.060.70-1.30 mg/dLEstimated GFR ( Joyce>60>=60 mL/min/1.73m 2Estimated GFR (Non- Lulu>60>=60 mL/min/1.73m 2BUN Creatinine Ratio17.4Dyquixl4.58.5-10.1 mg/dLPerforming Lab:see note - [facility] LBCBC AUTO DIFF Reviewed date:10/13/2024 12:53:09 PM Interpretation: Performing Lab: Notes/Report: [facility] ,White Blood Count12.94.0-11.0 10 3/uLRed Blood Count4.084.70-6.10 10 6/uL Sniehlkeyu44.814.0-18.0 g/bYLblemgvswy95.042.0-54.0 %Mean Corpuscular Xsqbfp77.3 80.0-94.0 fLMean Corpuscular Xbflvjalxg93.925.9-34.0 pgMean Corpuscular HGB Conc 34.729.9-35.2 g/dLRed Cell Distribution Width14.411.0-15.0 %Platelet Pkbek160 150-450 10 3/uLMean Platelet Jfisiv21.09.5-13.5 fLNeutrophils Percent Auto86.7 43.0-75.0 %Lymphocytes Percent Auto5.720.5-60.0 %Monocytes Percent Auto5.51.7- 12.0 %Eosinophils Percent Auto0.00.9-7.0 %Basophils Percent Auto0.10.2-2.0 % Immature Granulocytes Pct Auto2.00.0-0.5 %Neutrophils Absolute Auto11.21.4-6.5 10 3/uLLymphocytes Absolute Auto0.71.2-3.8 10 3/uLMonocytes Absolute Auto0.70.3- 0.8 10 3/uLEosinophils Absolute Auto0.00.0-0.7 10 3/uLBasophils Absolute Auto0.0 0.0-0.1 10 3/uLImmature Granulocytes Abs Auto0.260.00-0.03 10 3/uLPerforming Lab:see noteML - [facility] LBBNP Reviewed date:10/13/2024 12:53:09 PM Interpretation: Performing Lab: Notes/Report: [facility] ,NT Pro B Type Natriuretic Fhvh0649.0<=900.0 pg/mL RESULTS CALLED TO HANDY HAZEL RN @BY Leta Martin at 0627 Performing Lab:see note - [facility] LBPROF CHEM 8 (BAS METB) Reviewed date:10/12/2024 09:43:25 PM Interpretation: Performing Lab: Notes/Report: [facility] ,Svyzjh732860-049 mmol/LPotassium3.93.5-5.1 mmol/XOfdfiunn72731-225 mmol/LCarbon Nklbheo42.921.0-32.0 mmol/LAnion Gap13.8Yftfiaf59846-734 mg/dLBlood Urea Xhqdtesf42.07.0-18.0 mg/dLCreatinine0.930.70-1.30 mg/dLEstimated GFR ( Joyce>60>=60 mL/min/1.73m 2Estimated GFR (Non- Lulu>60>=60 mL/min/1.73m 2BUN Creatinine Ratio17.6Hvrbiwu7.68.5-10.1 mg/dLPerforming Lab:see noteML - [facility] LBCBC AUTO DIFF Reviewed date:10/12/2024 09:43:25 PM Interpretation: Performing Lab: Notes/Report: [facility] ,White Blood Count12.64.0-11.0 10 3/uLRed Blood Count4.064.70-6.10 10 6/uL Qserzvodpt04.614.0-18.0 g/yHLfiikeblsm69.842.0-54.0 %Mean Corpuscular Btezra82.3 80.0-94.0 fLMean Corpuscular Pvqntcqdff12.625.9-34.0 pgMean Corpuscular HGB Conc 34.329.9-35.2 g/dLRed Cell Distribution Width14.211.0-15.0 %Platelet Dgnjx442 150-450 10 3/uLMean Platelet Qdoypx15.09.5-13.5 fLNeutrophils Percent Auto89.5 43.0-75.0 %Lymphocytes Percent Auto5.620.5-60.0 %Monocytes Percent Auto3.71.7- 12.0 %Eosinophils Percent Auto0.10.9-7.0 %Basophils Percent Auto0.10.2-2.0 % Immature Granulocytes Pct Auto1.00.0-0.5 %Neutrophils Absolute Auto11.31.4-6.5 10 3/uLLymphocytes Absolute Auto0.71.2-3.8 10 3/uLMonocytes Absolute Auto0.50.3- 0.8 10 3/uLEosinophils Absolute Auto0.00.0-0.7 10 3/uLBasophils Absolute Auto0.0 0.0-0.1 10 3/uLImmature Granulocytes Abs Auto0.120.00-0.03 10 3/uLPerforming Lab:see noteML - [facility] LBResult 3 Reviewed date:10/18/2024 11:43:47 AM Interpretation: Performing Lab: Notes/Report: [facility] ,Result 3See Below For Report Result 3 *ABNORMAL* Result 3Rare gram negative rods. Result 3 *ABNORMAL* Performing Lab:see noteLC - [facility] LBResult 2 Reviewed date:10/18/2024 11:43:47 AM Interpretation: Performing Lab: Notes/Report: [facility] ,Result 2See Below For Report Result 2 Rare gram positive cocci Performing Lab:see note - [facility] LBResult 1 Reviewed date:10/18/2024 11:43:47 AM Interpretation: Performing Lab: Notes/Report: [facility] ,Result 1See Below For Report Result 1 Small amount of yeast seen. Performing Lab:see note - [facility] LBEpithelial Cells Reviewed date:10/18/2024 11:43:47 AM Interpretation: Performing Lab: Notes/Report: [facility] ,Epithelial CellsSee Below For Report Epithelial Cells None seen Performing Lab:see note - [facility] LBWhite Blood Cells Reviewed date:10/14/2024 06:07:04 PM Interpretation: Performing Lab: Notes/Report: [facility] ,White Blood CellsSee Below For Report White Blood Cells White Blood CellsTest not performed. Specimen received frozen. White Blood Cells Performing Lab:[facility] LBINFLUENZA A AND B AG Reviewed date:10/09/2024 03:32:21 PM Interpretation: Performing Lab: Notes/Report: [facility] ,Influenza Virus A AntigenNegative Negative for Flu A protein antigen. Infection due to Flu A cannot be ruled out. Flu A antigen in the sample may be below the detection limit of the test. Influenza Virus B AntigenNegative Negative for Flu B protein antigen. Infection due to Flu B cannot be ruled out. Flu B antigen in the sample may be below the detection limit of the test. Performing Lab:see noteML - [facility] LBCBC AUTO DIFF Reviewed date:10/09/2024 03:32:21 PM Interpretation: Performing Lab: Notes/Report: [facility] ,White Blood Count9.44.0-11.0 10 3/uLRed Blood Count4.674.70-6.10 10 6/uL Umwpjbqkaz92.414.0-18.0 g/pRPtrayszyyx55.442.0-54.0 %Mean Corpuscular Uccyxy94.4 80.0-94.0 fLMean Corpuscular Ffmxdtwpok34.725.9-34.0 pgMean Corpuscular HGB Conc 34.029.9-35.2 g/dLRed Cell Distribution Width14.411.0-15.0 %Platelet Cvdri360 150-450 10 3/uLMean Platelet Volume9.79.5-13.5 fLNeutrophils Percent Auto78.2 43.0-75.0 %Lymphocytes Percent Auto8.320.5-60.0 %Monocytes Percent Auto9.61.7- 12.0 %Eosinophils Percent Auto3.00.9-7.0 %Basophils Percent Auto0.40.2-2.0 % Immature Granulocytes Pct Auto0.50.0-0.5 %Neutrophils Absolute Auto7.41.4-6.5 10 3/uLLymphocytes Absolute Auto0.81.2-3.8 10 3/uLMonocytes Absolute Auto0.90.3- 0.8 10 3/uLEosinophils Absolute Auto0.30.0-0.7 10 3/uLBasophils Absolute Auto0.0 0.0-0.1 10 3/uLImmature Granulocytes Abs Auto0.050.00-0.03 10 3/uLPerforming Lab:see noteML - [facility] LBCBC AUTO DIFF Reviewed date:10/06/2024 02:02:37 PM Interpretation: Performing Lab: Notes/Report: [facility] ,White Blood Count9.64.0-11.0 10 3/uLRed Blood Count4.894.70-6.10 10 6/uL Rxzgdmpqmz87.014.0-18.0 g/fCLzgjahphjs32.942.0-54.0 %Mean Corpuscular Kradxw98.6 80.0-94.0 fLMean Corpuscular Aazplwqvst99.625.9-34.0 pgMean Corpuscular HGB Conc 34.229.9-35.2 g/dLRed Cell Distribution Width14.611.0-15.0 %Platelet Zqano824 150-450 10 3/uLMean Platelet Volume9.89.5-13.5 fLNeutrophils Percent Auto72.2 43.0-75.0 %Lymphocytes Percent Auto10.920.5-60.0 %Monocytes Percent Auto10.71.7- 12.0 %Eosinophils Percent Auto5.30.9-7.0 %Basophils Percent Auto0.50.2-2.0 % Immature Granulocytes Pct Auto0.40.0-0.5 %Neutrophils Absolute Auto6.91.4-6.5 10 3/uLLymphocytes Absolute Auto1.11.2-3.8 10 3/uLMonocytes Absolute Auto1.00.3- 0.8 10 3/uLEosinophils Absolute Auto0.50.0-0.7 10 3/uLBasophils Absolute Auto0.1 0.0-0.1 10 3/uLImmature Granulocytes Abs Auto0.040.00-0.03 10 3/uLPerforming Lab:see noteML - [facility] LBECG 12 lead Reviewed date:10/06/2024 02:02:37 PM Interpretation: Performing Lab: Notes/Report: Source Facility: [place] [address] [place] [address] Electrocardiograph Report Signed Patient: DEMARCUS PANCHAL MR#: [id number] : 1955 Acct:[id number] Age/Sex: 69 / M ADM Date: 10/06/24 Loc: ER Attending Dr: Ordering Physician: Indra Bernard M.D. Date of Service: 10/06/24 Procedure(s): ECG 12 lead Accession Number(s): [id number] cc: [facility] Test Date: 2024-10-06 Pat Name: DEMARCUS PANCHAL Department: Room: - Gender: Male Com Writer: : 1955 Requested By: 1030 Order Number: [id number] Reading MD: MELANY CHEN M.D. Measurements Intervals [place] Rate: 85 P: 39 VT: 160 QRS: -7 QRSD: 98 T: 66 QT: 368 QTc: 411 Interpretive Statements 1100 Sinus rhythm 4068 Nonspecific Twave abnormality 5233 Voltage criteria for LVH 9150 abnormal ECG Compared to ECG 10/03/2024 17:40:37 No significant changes Electronically Signed On 10-06-2024 13:52:02 EDT by MELANY CHEN M.D. Dictated By: MELANY CHEN Signed By: 10/06/24 9608 DD/ 1159 TD/TT: Emergency Medicine:UA RANDOM W or MICROSCOPIC Reviewed date:10/06/2024 02:02:37 PM Interpretation: Performing Lab: Notes/Report: [facility] ,Color UrineLT. YELLOWYELLOWClarity UrineCLEARCLEARSpecific Hendricks Urine1.010 1.005-1.025pH Urine6.05.0-9.0Protein UrineNEGATIVENEG/TRACE mg/dLGlucose Urine UANEGATIVENEGATIVE mg/dLBilirubin UrineNEGATIVENEGATIVEKetones UrineNEGATIVE NEGATIVE mg/dLBlood UrineNEGATIVENEGATIVENitrite UrineNEGATIVENEGATIVE Urobilinogen Urine0.20.2-1.0 EU/dLLeukocyte Esterase UrineNEGATIVENEGATIVEWBC UrineNONE SEENNONE SEEN #/HPFRBC Urine0-20-2 #/HPFBacteria UrineNONE SEENNONE SEEN #/HPFMucus UrineNONE SEENNONE SEENSquamous Epithelial Cell UrineNONE SEEN NONE/RARE #/LPFCrystals Seen?None SeenNone Seen #/HPFCast Seen?NONE SEENNONE SEEN #/LPFPerforming Lab:see noteML - [facility] LBPROF 14(COMP METB) Reviewed date:10/06/2024 02:02:36 PM Interpretation: Performing Lab: Notes/Report: [facility] ,[id number] mmol/LPotassium3.73.5-5.1 mmol/MEsjddhuy8196-415 mmol/LCarbon Bytrbwu66.221.0-32.0 mmol/LAnion Gap11.8Cvnhscz30405-350 mg/dLBlood Urea Aejtdaze93.07.0-18.0 mg/dLCreatinine1.160.70-1.30 mg/dLEstimated GFR ( Joyce>60>=60 mL/min/1.73m 2Estimated GFR (Non- Lulu>60>=60 mL/min/1.73m 2BUN Creatinine Ratio13.0Ssynndq3.78.5-10.1 mg/dLBilirubin Total0.60.2-1.0 mg/dL Aspartate Amino Eoyccqcztng7584-16 U/LAlanine Krmgdqkxniocvgag6678-41 U/L Alkaline Akquoigpbhj9356-292 U/LTotal Protein6.76.4-8.2 g/dLAlbumin Level3.23.4- 5.0 g/dLGlobulin3.5Albumin Globulin Ratio0.9Performing Lab:see noteML - [facility] LBECG 12 lead Reviewed date:10/05/2024 05:49:06 PM Interpretation: Performing Lab: Notes/Report: Source Facility: [place] [address] Electrocardiograph Report Signed Patient: DEMARCUS PACNHAL MR#: [id number] : 1955 Acct:[id number] Age/Sex: 69 / M ADM Date: 10/03/24 Loc: ER Attending Dr: Ordering Physician: Irma Waters Date of Service: 10/03/24 Procedure(s): ECG 12 lead Accession Number(s): [id number] cc: [facility] Test Date: 2024-10-03 Pat Name: DEMARCUS PANCHAL Department: Room: - Gender: Male Com Writer: : 1955 Requested By: [id number] Order Number: [id number] Reading MD: MELANY CHEN M.D. Measurements Intervals [place] Rate: 74 P: 30 VT: 158 QRS: -12 QRSD: 98 T: 113 QT: 382 QTc: 410 Interpretive Statements 1100 Sinus rhythm 5234 Left ventricular hypertrophy with repolarization abnormality 9150 abnormal ECG Compared to ECG 09/25/2024 11:23:51 Early repolarization now present Ventricular premature complex(es) no longer present Electronically Signed On 10-03-2024 18:49:24 EDT by MELANY CHEN M.D. Dictated By: MELANY CHEN Signed By: 10/03/24 1849 DD/ 1740 TD/TT: Emergency Medicine:SARS-CoV-2 Ag* Reviewed date:10/05/2024 05:49:06 PM Interpretation: Performing Lab: Notes/Report: [facility] ,SARS-CoV-2 AgNEGATIVENEGATIVE This test has not been FDA cleared [...] terminated or authorization is revoked sooner. Performing Lab:see note - [facility] LBVenous Blood Gas Reviewed date:10/05/2024 05:49:06 PM Interpretation: Performing Lab: Notes/Report: [facility] ,pH VBG7.4857.330-7.495CQE9 VBG30.940.0-52.0 mmHgPerforming Lab:see note - [facility] LBTroponin I High Sensitivity Reviewed date:10/05/2024 05:49:06 PM Interpretation: Performing Lab: Notes/Report: [facility] ,Troponin I High Lqivdwrgakz26.14.0-76.1 pg/mL CUT-OFF POINTS HAVE BEEN ESTABLISHED BASED ON THE FOURTH UNIVERSAL DEFINITION OF MYOCARDIAL INFARCTION. THE UPPER REFERENCE LIMIT (URL) OF TROPONIN, DEFINED THE 99TH PERCENTILE OF cTnI DISTRIBUTION IN A REFERENCE POPULATION, HAS BEEN CONFIRMED THE DECISION THRESHOLD FOR RI DIAGNOSIS. 99TH PERCENTILE = 76.2 PG/ML NOTE: HIGH-SENSITIVITY TROPONIN ASSAY IS NOT INTENDED TO BE USED IN ISOLATION BUT SHOULD BE INTERPRETED IN CONJUNCTION WITH OTHER DIAGNOSTIC AND CLINICAL INFORMATION. Performing Lab:see noteML - [facility] LBProthrombin Time INR Reviewed date:10/05/2024 05:49:06 PM Interpretation: Performing Lab: Notes/Report: [facility] ,Prothrombin Time10.89.0-11.6 secINR1.02 DESIRED INR: 2.0-3.0 CONDITIONS NOT LISTED BELOW 2.5-3.5 FOR PROSTHETIC HEART VALVE REPLACEMENT 2.5-3.5 RECURRENT THROMBOSIS Performing Lab:see noteML - [facility] LBPROF 14(COMP METB) Reviewed date:10/05/2024 05:49:06 PM Interpretation: Performing Lab: Notes/Report: [facility] ,Kgzlhb978266-739 mmol/LPotassium4.23.5-5.1 mmol/MDljvplra0508-754 mmol/LCarbon Wrugkie17.121.0-32.0 mmol/LAnion Gap12.2Bbgqdyg36606-988 mg/dLBlood Urea Yqnrupub37.07.0-18.0 mg/dLCreatinine1.060.70-1.30 mg/dLEstimated GFR ( Joyce>60>=60 mL/min/1.73m 2Estimated GFR (Non- Lulu>60>=60 mL/min/1.73m 2BUN Creatinine Ratio15.6Telsopj7.08.5-10.1 mg/dLBilirubin Total0.70.2-1.0 mg/dL Aspartate Amino Uhyixtpydnm8289-87 U/LAlanine Iqyarwbpabwjkyrk4615-37 U/L Alkaline Vnvmicxzthy6448-136 U/LTotal Protein6.26.4-8.2 g/dLAlbumin Level3.23.4- 5.0 g/dLGlobulin3.0Albumin Globulin Ratio1.1Performing Lab:see noteML - [facility] LBMAGNESIUM Reviewed date:10/05/2024 05:49:06 PM Interpretation: Performing Lab: Notes/Report: [facility] ,Magnesium2.11.8-2.4 mg/dLPerforming Lab:see noteML - [facility] LB LACTATE or LACTIC ACID Reviewed date:10/05/2024 05:49:06 PM Interpretation: Performing Lab: Notes/Report: [facility] ,Lactate/Lactic Acid0.90.4-2.0 mmol/LPerforming Lab:see noteML - [facility] LBINFLUENZA A AND B AG Reviewed date:10/05/2024 05:49:06 PM Interpretation: Performing Lab: Notes/Report: [facility] ,Influenza Virus A AntigenNegative Negative for Flu A protein antigen. Infection due to Flu A cannot be ruled out. Flu A antigen in the sample may be below the detection limit of the test. Influenza Virus B AntigenNegative Negative for Flu B protein antigen. Infection due to Flu B cannot be ruled out. Flu B antigen in the sample may be below the detection limit of the test. Performing Lab:see noteML - [facility] LBCBC AUTO DIFF Reviewed date:10/05/2024 05:49:06 PM Interpretation: Performing Lab: Notes/Report: [facility] ,White Blood Count10.04.0-11.0 10 3/uLRed Blood Count4.774.70-6.10 10 6/uL Rpretryrwk38.714.0-18.0 g/jUUyedgeadne76.342.0-54.0 %Mean Corpuscular Cwwews60.5 80.0-94.0 fLMean Corpuscular Neexjeikzz30.725.9-34.0 pgMean Corpuscular HGB Conc 34.029.9-35.2 g/dLRed Cell Distribution Width14.511.0-15.0 %Platelet Mgxyc198 150-450 10 3/uLMean Platelet Volume9.89.5-13.5 fLNeutrophils Percent Auto67.2 43.0-75.0 %Lymphocytes Percent Auto13.720.5-60.0 %Monocytes Percent Auto11.61.7- 12.0 %Eosinophils Percent Auto6.10.9-7.0 %Basophils Percent Auto0.40.2-2.0 % Immature Granulocytes Pct Auto1.00.0-0.5 %Neutrophils Absolute Auto6.71.4-6.5 10 3/uLLymphocytes Absolute Auto1.41.2-3.8 10 3/uLMonocytes Absolute Auto1.20.3- 0.8 10 3/uLEosinophils Absolute Auto0.60.0-0.7 10 3/uLBasophils Absolute Auto0.0 0.0-0.1 10 3/uLImmature Granulocytes Abs Auto0.100.00-0.03 10 3/uLPerforming Lab:see noteML - [facility] LBBNP Reviewed date:10/05/2024 05:49:06 PM Interpretation: Performing Lab: Notes/Report: [facility] ,NT Pro B Type Natriuretic Dwwc852.0<=900.0 pg/mLPerforming Lab:see noteML - [facility] LBCT angio chest Reviewed date:04/15/2025 12:40:43 PM Interpretation: Performing Lab: Notes/Report: Source Facility: [facility]-[address] [place] [address] [place] [address] CT Scan Report Signed Patient: DEMARCUS PANCHAL MR#: [id number] : 1955 Acct:[id number] Age/Sex: 70 / M ADM Date: 04/15/25 Loc: ER Attending Dr: Ordering Physician: Indra Bernard M.D. Date of Service: 04/15/25 Procedure(s): CT angio chest Accession Number(s): [id number] cc: Rk Klein M.D. [place] [address] Patient Name: DEMARCUS PANCHAL MRN: [id number] date: 1955 Sex: M Assigned Patient Location: ER Current Patient Location: ER Accession/Order Number: [id number] Exam Date: 04/15/2025 11:35 Report Date: 04/15/2025 12:07 At the request of: INDRA BERNARD MD Procedure: CT angio chest CT PULMONARY ANGIOGRAM WITH CONTRAST CLINICAL HISTORY: Short of breath and chest pain. Elevated D-dimer COMPARISON: 10/11/2024 TECHNIQUE: Spiral images were obtained through the chest following intravenous administration of 100 mL of Omnipaque 350. Images were reviewed using both narrow and wide window settings. Sagittal, coronal and 3 D volume-rendered reconstructions were performed and reviewed. This CT exam was performed using one or more following dose reduction techniques: Automated exposure control, adjustment of the mA and/or kV according to patient size, or use of iterative reconstruction technique. FINDINGS: The heart is borderline prominent. There is no pericardial effusion. Coronary artery disease is seen. No aortic aneurysm is identified. Contrast bolus is suboptimal to assess for dissection. There is mild plaque at the aortic arch. There is adequate opacification of the pulmonary arteries. No emboli are identified. Scattered mediastinal and hilar lymph nodes are present showing interval increase in size. There is minor gynecomastia. Endplate spurring and subtle levoscoliotic curvature are present at the spine. There are developing tiny layering pleural effusions. Interstitial changes are again noted. Minor patchy areas of groundglass density remain however there is significant interval improvement since the prior. There is no new consolidation or pneumothorax. Limited cuts through the upper abdomen show no contributory abnormality. CT/CT angio chest IMPRESSION: NO CT EVIDENCE OF PULMONARY EMBOLISM. BORDERLINE CARDIOMEGALY. ENLARGING MEDIASTINAL AND HILAR LYMPH NODES. CONTINUED INTERSTITIAL LUNG DISEASE. SIGNIFICANT INTERVAL IMPROVEMENT OF GROUNDGLASS OPACITIES. TINY DEVELOPING PLEURAL EFFUSIONS. Impression dictated by: Lisa Barillas M.D. 04/15/2025 12:07 PM Dictation Location: [place] [address] Electronically authenticated by: [id number] Y Date: 04/15/2025 12:07 Dictated By: Lisa Barillas M.D. Signed By: 04/15/25 1210 DD/ 1207 TD/TT: Emergency Medicine:D-DIMER Reviewed date:04/15/2025 12:40:43 PM Interpretation: Performing Lab: Notes/Report: [facility] ,D Dimer0.66<=0.59 mg/L FEU RESULTS CALLED TO IVETTE CASTRO RN at 1121 Increases in D-Dimer concentration observed with thromboembolic events can be variable due to localization, size, and age of the thrombus. Therefore, a thromboembolic event cannot be diagnosed with certainty on the basis of the reference range. D-Dimers may also be elevated for a variety of disorders including advanced age, , coronary disease, cancer, liver disease, infection, inflammation, hematoma, DIC, trauma, post-surgery, diabetes, thrombolytic or anticoagulant therapy, stress, and generalized hospitalization. Performing Lab:see noteML - [facility] LBURIC ACID SERUM Reviewed date:03/16/2025 12:26:36 PM Interpretation: Performing Lab: Notes/Report: [facility] ,Uric Acid6.93.5-7.2 mg/dLPerforming Lab:see noteML - [facility] LB TSH Reviewed date:03/16/2025 12:26:36 PM Interpretation: Performing Lab: Notes/Report: [facility] ,Thyroid Stimulating Hormone3.4440.358-3.740 uIU/mLPerforming Lab:see noteML - [facility] LBT4 Reviewed date:03/16/2025 12:26:36 PM Interpretation: Performing Lab: Notes/Report: [facility] ,T4 Thyroxine9.504.50-12.10 ug/dLPerforming Lab:see note - [facility] LBPROF 14(COMP METB) Reviewed date:03/16/2025 12:26:36 PM Interpretation: Performing Lab: Notes/Report: [facility] ,Coatmr364409-077 mmol/LPotassium4.13.5-5.1 mmol/NQgbjbxzr75150-274 mmol/LCarbon Vkfnfzw47.921.0-32.0 mmol/LAnion Gap13.1Ixlpikk79979-511 mg/dLBlood Urea Nitrogen9.07.0-18.0 mg/dLCreatinine0.930.70-1.30 mg/dLEstimated GFR ( Joyce>60>=60 mL/min/1.73m 2Estimated GFR (Non- Lulu>60>=60 mL/min/1.73m 2BUN Creatinine Ratio9.5Xdfhqni8.28.5-10.1 mg/dLBilirubin Total0.90.2-1.0 mg/dL Aspartate Amino Qosyfeigtpj5767-99 U/LAlanine Fbvuwasykrcsrlhx7815-42 U/L Alkaline Hiduqtofgzd0336-074 U/LTotal Protein7.56.4-8.2 g/dLAlbumin Level3.93.4- 5.0 g/dLGlobulin3.6Albumin Globulin Ratio1.1Performing Lab:see noteML - [facility] LBLIPID PROFILE Reviewed date:03/16/2025 12:26:36 PM Interpretation: Performing Lab: Notes/Report: [facility] ,Ngvrxwzfatvpk303<=150 mg/wIEgdnljwfwke696<=200 mg/dLHDL Ahyohsiifpi4849-67 mg/dL > or =60 mg/dl - LOW CARDIOVASCULAR RISK <40 mg/dl - HIGH CARDIOVASCULAR RISK LDL Cholesterol Tgnopycrso149.0 <100 mg/dl OPTIMAL 100-129 mg/dl NEAR OR ABOVE OPTIMAL 130-159 mg/dl BORDERLINE HIGH 160-189 mg/dl HIGH >190 mg/dl VERY HIGH VLDL GMZCZGUHUEZ93.8Chol HDL Ratio5.5 3.3 - 4.4 LOW RISK 4.4 - 7.1 AVERAGE RISK 7.1 - 11.0 MODERATE RISK >11.0 HIGH RISK Performing Lab:see noteML - [facility] LBFREE T3 Reviewed date:03/16/2025 12:26:36 PM Interpretation: Performing Lab: Notes/Report: [facility] ,Free T33.542.18-3.98 pg/mLPerforming Lab:see noteML - [facility] LB ECG 12 lead Reviewed date:10/16/2024 07:54:19 PM Interpretation: Performing Lab: Notes/Report: Source Facility: [place] [address] Electrocardiograph Report Signed Patient: DEMARCUS PANCHAL MR#: [id number] : 1955 Acct:[id number] Age/Sex: 69 / M ADM Date: 10/09/24 Loc: MS 219- Attending Dr: Rk Klein M.D. Ordering Physician: Rk Klein M.D. Date of Service: 10/16/24 Procedure(s): ECG 12 lead Accession Number(s): [id number] cc: [facility] Test Date: 2024-10-16 Pat Name: DEMARCUS PANCHAL Department: Room: [facility] Gender: Male Com Writer: : 1955 Requested By: RK KLEIN Order Number: [id number] Reading MD: LUBA ORTEGA Measurements Intervals [place] Rate: 89 P: 40 VT: 154 QRS: -12 QRSD: 106 T: 77 QT: 364 QTc: 445 Interpretive Statements SINUS RHYTHM POSSIBLE LEFT VENTRICULAR HYPERTROPHY [VOLTAGE CRITERIA PLUS LAE OR QRS WIDENING] Compared to ECG 10/09/2024 11:29:05 No significant change Electronically Signed On 10-16-2024 15:44:13 EDT by LUBA ORTEGA Dictated By: Luba Ortega M.D. Signed By: 10/16/24 1544 DD/ 0911 TD/TT: Emergency Medicine:PROF CHEM 8 (BAS METB) Reviewed date:10/12/2024 09:43:25 PM Interpretation: Performing Lab: Notes/Report: [facility] ,Ewqhzz194029-577 mmol/LPotassium4.33.5-5.1 mmol/EVkztismo0389-477 mmol/LCarbon Favhgef31.421.0-32.0 mmol/LAnion Gap15.3Dfmxcao60521-763 mg/dLBlood Urea Djadpmlg02.07.0-18.0 mg/dLCreatinine0.960.70-1.30 mg/dLEstimated GFR ( Joyce>60>=60 mL/min/1.73m 2Estimated GFR (Non- Lulu>60>=60 mL/min/1.73m 2BUN Creatinine Ratio17.7Zjukjve3.28.5-10.1 mg/dLPerforming Lab:see noteML - [facility] LBCBC AUTO DIFF Reviewed date:10/12/2024 09:43:25 PM Interpretation: Performing Lab: Notes/Report: [facility] ,White Blood Count19.44.0-11.0 10 3/uLRed Blood Count4.544.70-6.10 10 6/uL Iggngyaebr06.814.0-18.0 g/aNEbsrrtnnfg73.842.0-54.0 %Mean Corpuscular Rfzktr47.3 80.0-94.0 fLMean Corpuscular Zwalrbyhaw91.225.9-34.0 pgMean Corpuscular HGB Conc 33.929.9-35.2 g/dLRed Cell Distribution Width14.211.0-15.0 %Platelet Sqoan307 150-450 10 3/uLMean Platelet Cyxruj19.29.5-13.5 fLNeutrophils Percent Auto89.5 43.0-75.0 %Lymphocytes Percent Auto5.620.5-60.0 %Monocytes Percent Auto3.51.7- 12.0 %Eosinophils Percent Auto0.00.9-7.0 %Basophils Percent Auto0.10.2-2.0 % Immature Granulocytes Pct Auto1.30.0-0.5 %Neutrophils Absolute Auto17.41.4-6.5 10 3/uLLymphocytes Absolute Auto1.11.2-3.8 10 3/uLMonocytes Absolute Auto0.70.3- 0.8 10 3/uLEosinophils Absolute Auto0.00.0-0.7 10 3/uLBasophils Absolute Auto0.0 0.0-0.1 10 3/uLImmature Granulocytes Abs Auto0.250.00-0.03 10 3/uLPerforming Lab:see noteML - [facility] LB Reason For Referral Reason New pt for CAD adn c hf Diagnosis 1 CHF (congestive hear t failure) (I50.9) Referral Organization [facility] Medicine Referring Provider First Name Tin Referring Provider Last Name Latoya Referring Provider Speciality [facility] julian Referred Provider Melany Chen Referred Provider Specialty Cardiology Referral Priority Routine Medications Medication SIG (Take, Route, Frequency, Duration) Notes Start Date End Date Status Albuterol Sulfate HFA 108 (90 Base) MCG/ACT Inha lation; Duration: 90 Days ActiveNasonex 24HR 50 MCG/ACT4 sprays (2 sprays in each nostril) Nasally Once a day5ActiveTrelegy Ellipta 200 mcg 200 mcg/62.5 mcg/ 25 mcg1 puff Inhalation Once a day; Duration: 30 days5ActiveClaritin-D 12 HourActive TurmericActiveMontelukast Sodium 10 MG1 tablet Orally Once a day; Duration: 90 days5ActiveCetirizine HCl 10 MG1 tablet Orally Once a day; Duration: 90 5ActiveAlbuterol Sulfate (2.5 MG/3ML) 0.083%Inhalation; Duration: 90 DaysActiveAdvair HFA 230-21 MCG/ACT2 puffs Inhalation Twice a day10/02/2024 ActiveFurosemide 40 MG1 tablet Orally every other day; Duration: 90 days 5ActiveDoxycycline Monohydrate 100 MG1 tablet Orally bid; Duration: 10 5ActiveFish Oil 1200 MG1 capsule Orally Once a day5Active Vitamin C 100 MG1 tablet Orally Once a day5ActiveVitamin D 50 MCG (2000 UT)1 tablet Orally Once a day5ActiveCayenne PepperActiveMagnesium 300 MG1 capsule with a meal Orally Once a day5ActiveTamsulosin HCl 0.4 MG2 capsule Orally Once a day; Duration: 90 days5ActiveZinc 50 MG1 tablet Orally Once a day5ActiveCarvedilol 6.25 MGOral; Duration: 90 DaysActive Ipratropium-Albuterol 0.5-2.5 (3) MG/3MLInhalation; Duration: 8 DaysActive Omeprazole 20 MGOral; Duration: 90 DaysActiveVitamin E 268 MG (400 UNIT)1 capsule Orally Once a day5ActiveOmega 3Active Immunizations Vaccine Route Administration Date Status Comme nts Flu, Fluad (68968) 65 yrs + Trivalent (4973-8700) Unknown 04/16/2019 Administered Pneumococcal (Prevnar 13)Jngnmbu2008/16/2018AdministeredTdap (Boostrix)Unknown 08/10/2017AdministeredZoster (Zostavax)Clfqpmg7812/21/2016Administered Social History Tobacco Use: Social History Observation Description Date Details (start date - stop date) Former Smoker NA - NA Tobacco Control (Standard) Question Answer Notes Tobacco use: Former smoker How long has it been since you last smoked?Greater than 10 yearsAdditional Findings: Tobacco lir-mejtQl-kpkdyhca cigarette smoker (10-19/day) Problems Problem Type SNOMED Code ICD Code Onset Dates Problem Status W/U Status Risk Notes Problem Gastro-esophageal re flux disease without esophagitis (665333698) Gastro-esophageal reflux disease without esophagitis (K21.9) ActiveconfirmedProblemMorbid obesity (disorder) (405233492)Morbid (severe) obesity due to excess calories (E66.01)ActiveconfirmedProblemObesity (978246285) Obesity, unspecified (E66.9)ActiveconfirmedProblemUncomplicated moderate persistent asthma (274404301)Moderate persistent asthma, uncomplicated (J45.40) ActiveconfirmedProblemPulmonary fibrosis (82008174)Pulmonary fibrosis, unspecified (J84.10)ActiveconfirmedProblemLong-term current use of inhaled steroid (781189771)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 (Z79.51)Active confirmedProblemCongestive heart failure (45779495)CHF (congestive heart failure) (I50.9)ActiveconfirmedProblemCOPD - Chronic obstructive pulmonary disease (04495829)COPD (chronic obstructive pulmonary disease) (J44.9)Active confirmedProblemCoronary artery disease (16920571)CAD (coronary artery disease) (I25.10)ActiveconfirmedProblemHypertension (83962661)HTN (hypertension) (I10) ActiveconfirmedProblemBenign prostatic hyperplasia (522545964)BPH (benign prostatic hyperplasia) (N40.0)ActiveconfirmedProblemAcute exacerbation of chronic obstructive airways disease (091998422)COPD exacerbation (J44.1)Active confirmedProblemBronchiectasis (91120981)Bronchiectasis (J47.9)Activeconfirmed ProblemEx-tobacco user (finding) (333747933)History of tobacco abuse (Z87.891) ActiveconfirmedProblemCongestive heart failure stage D (59436129915049)End stage heart failure (I50.84)WcikfashkfcswfyWgvdvdwUsfar-7-gtcuksedmbz phenotype PiMS (finding) (130520873)Alpha 1-antitrypsin PiMS phenotype (Z14.8)Activeconfirmed ProblemChronic wclo-YCWZC-91 syndrome (disorder) (7176068861)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 ([place], [place]) [address] [place] [address] 10/05/2024 Tin Klein [facility] (current) use of inhaled steroids Z79.[address] [facility] ([place], [place]) [address] [place] [address] 02/17/[address] [facility] ([place], [place])[address] [place] [address] 02/24/2025Doug [facility] [place] [address]/Doug HoyElevated PSA R97.20[facility] ([place], [place])[address] [place] [address]/07/2024Doug [facility] [place] [address]/07/2024 Tin [facility] [place] [address]/06/2024Doug [facility] [place] [address]/03/2025[facility] [place] [address]/Doug [facility] [address] [place] [address]/Doug [facility] [place] [address]/05/2024Doug [facility] [place] [address] 12/15/2024Doug [facility] [place] [address]/Doug [facility] [place] [address]/Doug [facility] [place] [address]/Doug [facility] [place] [address]/Doug [facility] [place] [address]/ Tin [facility] [place] [address]/06/2024[facility] [place] [address]/12/2024Doug HoyCOPD (chronic obstructive pulmonary disease) J44.9 ; CAD (coronary artery disease) I25.10 ; Pulmonary fibrosis, unspecified J84.10 ; Moderate persistent asthma, uncomplicated J45.40 ; BPH (benign prostatic hyperplasia) N40.0 and Gastro-esophageal reflux disease without esophagitis K21.9[facility] [address] [place] [address]/03/2024[facility] SamsaBronchiectasis J47.9 ; Moderate persistent asthma, uncomplicated J45.40 ; Pulmonary fibrosis, unspecified J84.10 ; Candidal stomatitis B37.0 ; Peripheral eosinophilia D72.19 ; COPD (chronic obstructive pulmonary disease) J44.9 ; Alpha 1-antitrypsin PiMS phenotype Z14.8 ; CAD (coronary artery disease) I25.10 ; History of tobacco abuse Z87.891 ; CHCF (current) use of inhaled steroids Z79.51 and Obesity, unspecified E66.9Pulmonary Medicine [address] [place] [address]/[facility] Samsa Bronchiectasis J47.9 ; Moderate persistent asthma, uncomplicated J45.40 ; Pulmonary fibrosis, unspecified J84.10 ; Peripheral eosinophilia D72.19 ; COPD (chronic obstructive pulmonary disease) J44.9 ; Alpha 1-antitrypsin PiMS phenotype Z14.8 ; CAD (coronary artery disease) I25.10 ; History of tobacco abuse Z87.891 ; 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 Z79.51 and Obesity, unspecified E66.9[address] [address]/08/2024Doug HoyMorbid (severe) obesity due to excess calories E66.01 ; End stage heart failure I50.84 and COPD (chronic obstructive pulmonary disease) J44.9B[address] [address]/07/2024Doug HoyCAD (coronary artery disease) I25.10 ; COPD (chronic obstructive pulmonary disease) J44.9 ; Morbid (severe) obesity due to excess calories E66.01 and CHF (congestive heart failure) I50.9B[address] [address]/Doug HoyCOPD (chronic obstructive pulmonary disease) J44.9 ; BPH (benign prostatic hyperplasia) N40.0 ; Gastro-esophageal reflux disease without esophagitis K21.9 and HTN (hypertension) J83Ilnv[address] [address]/Doug HoyAcute bronchitis, unspecified organism J20.9 Assessments Encounter Date Diagnosis (ICD Code) Assessment Notes Treatment Notes Treatment Clinical Notes Section Notes 05/07/2024 Bronchiectasis (ICD-10 - J47.9) HRCT 01/17/2024: Bronchiectasis Patient has responded favorably to saline nebs which have been able to mobilize secretions well. Patient was encouraged to continue using them twice daily. Continue using PEP. 5COPD (chronic obstructive pulmonary disease) (ICD-10 - J44.9) 5CAD (coronary artery disease) (ICD-10 - I25.10)stqbe - no CP02/10/2025 COPD (chronic obstructive pulmonary disease) (ICD-10 - J44.9)stable with dbddreqg78/16/2025PH (benign prostatic hyperplasia) (ICD-10 - N40.0)iva Baptiste5Bronchiectasis (ICD-10 - J47.9) HRCT 01/17/2024: Bronchiectasis He is not using saline nebs at this time. He should continue using them with PEP to maintain a goodpulmonary toilet. 11/27/2024AD (coronary artery disease) (ICD-10 - I25.10)no cpo11/27/2024OPD (chronic obstructive pulmonary disease) (ICD-10 - J44.9)stable cough inmproving 5Acute bronchitis, unspecified organism (ICD-10 - J20.9)Rest and drink more liquids, especially water. You may use a humidifier or vaporizer to help keep the drainage moist. Grcn-pyr-upishwn Nasal Saline may help the stuffy and runny nose. Use Ibuprofen and or Tylenol as needed for fever, chills, body aches or pain. Children 5 years old should not be given lwpl-efh-gwaenvz cough and cold medications such as guaifenesin and dextromethorphan. If you're over age 5, you may try yrne-nmt-oeqirku cold medications such as guaifenesin and dextromethorphan, or multi-symptom cold reliever such as Dayquil to help reduce the symptoms. Antibiotics have been prescribed. You should take these until completed and follow the directions. Antibiotics can sometimescause upset stomach, and in rare cases, serious allergic reactions or serious gastrointestinal problems. If you start having severe abdominal pain, severe vomiting, or bloody diarrhea, you should be reevaluated by your physician or urgent care immediately. Follow up with your Primary Care Provider or return to clinic if symptoms do not improve within 3-5 days. If you develop severe symptoms such as shortness of breath, repeated vomiting, coughing up blood, or chest pain you should go to the emergency room or call [id number] term (current) use of inhaled steroids (ICD-10 - Z79.51)10/05/2024Hyponatremia (ICD- 10 - E87.1)03/16/2025Elevated PSA (ICD-10 - R97.20)10/29/2024Morbid (severe) obesity due to excess calories (ICD-10 - E66.01)10/29/2024End stage heart failure (ICD-10 - I50.84)seein rqfzmojkdm76/04/2025OPD (chronic obstructive pulmonary disease) (ICD-10 - J44.9)11/27/2024Morbid (severe) obesity due to excess calories (ICD-10 - E66.01)woging on diet11/20/2024Moderate persistent asthma, uncomplicated (ICD-10 - J45.40) Prior treatment: Breztri > Trelegy, Advair, Symbicort + Spiriva Remains on Advair though Breztri was better in the past but states he could not tolerate it. He feels great since Dr. Klein cured him of an upper respiratory tract infection (it was a pneumonia on CTchest ~10/09/2024). He has no complaints today. [facility] Pulmonology will be closing in the next several weeks - discussed with patient that he can have Dr. Klein care for his pulmonary issues or other pulmonologists in the area can assume care if he wishes. 11/20/2024Pulmonary fibrosis, unspecified (ICD-10 - J84.10) He was to have F/U PFT and HRCT 12/2024, but [facility] Pulmonology practice will be closed by then - I would be unable to F/U with the results. Cancelling testing. Dr. Klein or other bedspread folder can order these tests if he/they wish to continue monitoring. 02/10/2025Gastro-esophageal reflux disease without esophagitis (ICD-10 - K21.9) 10/02/2024Pulmonary fibrosis, unspecified (ICD-10 - J84.10)myucio6405/07/2024 Moderate persistent asthma, uncomplicated (ICD-10 - J45.40) [...] visit, I suggested the patient return to [facility] and see how he responds. He has developed oral candidiasis while on Advair, so he was counseled again to rinse and gargle aggressively after using any inhaled steroid. Patient is to follow-up in 6 months for longitudinal evaluation. 4Pulmonary fibrosis, unspecified (ICD-10 - J84.10) Worsening in fibrosis on chest CT 07/22/2023 compared to 02/18/2018. Fibrosis does not seem to advanced significantly based on HRCT from 01/17/2024. F/U PFT & HRCT due 12/2024. 4Candidal stomatitis (ICD-10 - B37.0) Secondary to Advair. Patient states he rinses after using inhalers with Listerine. Patient was advised to also gargle after use. Rx'd Nystatin. 10/02/2024Moderate persistent asthma, uncomplicated (ICD-10 - J45.40)stabel on meds - refil cblfuo3902/10/2025HTN (hypertension) (ICD-10 - I10)same at home 11/20/2024Peripheral eosinophilia (ICD-10 - D72.19) Eosinophils: -08/22/2023: 9.6% / 600 -07/22/2023: 14.4% / 1000 May eventually be a biologic candidate if symptoms worsen. 11/27/2024HF (congestive heart failure) (ICD-10 - I50.9)wante to hold on diovan - bp check next week - setting up xitftrrggl39/26/2025OPD (chronic obstructive pulmonary disease) (ICD-10 - J44.9) Asthma-COPD overlap. 10/02/2024PH (benign prostatic hyperplasia) (ICD-10 - N40.0)05/07/2024 Peripheral eosinophilia (ICD-10 - D72.19) Eosinophils: -08/22/2023: [...] the future, will discuss biologic therapy again. 4COPD (chronic obstructive pulmonary disease) (ICD-10 - J44.9) Asthma-COPD overlap. 10/02/2024Gastro-esophageal reflux disease without esophagitis (ICD-10 - K21.9) 5Alpha 1-antitrypsin PiMS phenotype (ICD-10 - Z14.8) Patient has normal variant alpha1-antitrypsin phenotype MS. This in itself will not cause or typically contribute to emphysema. If the patient has any children, offer was made to provide testing kitsso they can be tested to assess if they are carriers. 5CAD (coronary artery disease) (ICD-10 - I25.10) Has CAD and CHF. Cath done September 2024, but now he wants to change from [facility]? 4Alpha 1-antitrypsin PiMS phenotype (ICD-10 - Z14.8) Patient has normal variant alpha1-antitrypsin phenotype MS. This in itself will not cause or typically contribute to emphysema. If the patient has any children, offer was made to provide testing kitsso they can be tested to assess if they are carriers. 4CAD (coronary artery disease) (ICD-10 - I25.10) ? contribution to dyspnea? 11/20/2024History of tobacco abuse (ICD-10 - Z87.891) 1/2ppd x 25 years, quit 1995 This patient does not meet current LDCT criteria (e.g. age, time from cessation, # pack-years). 11/20/2024Long term (current) use of inhaled steroids (ICD-10 - Z79.51) Patient was counseled to rinse & gargle with water after inhaled corticosteroid use. 05/07/2024History of tobacco abuse (ICD-10 - Z87.891) 1/2ppd x 25 years, quit 1995 This patient does not meet current LDCT criteria (e.g. age, time from cessation, # pack-years). 05/07/2024Long term (current) use of inhaled steroids (ICD-10 - Z79.51) Patient was counseled to rinse & gargle with water after inhaled corticosteroid use. 11/20/2024Obesity, unspecified (ICD-10 - E66.9) Patient's weight is inducing a restrictive pulmonary physiology. Weight loss indicated: Decrease calories, increase activity. 05/07/2024Obesity, unspecified (ICD-10 - E66.9) Patient's weight is inducing a restrictive pulmonary physiology. Weight loss indicated: Decrease calories, increase activity. Plan Of Treatment Pending Test Test Name Order Date HEMOGLOBIN A1C (GLYCO) 02/10/2025 LIPID PANEL (CHOL/TRIG/HDL/LDL) 02/11/20 25 URIC ACID 02/10/2025 CMP - Comprehensive Metabolic Panel 09/25 STOOL OCCULT BLOOD 02/10/2025 CBC AUTO DIFF 04/23/2025 THYROID PANEL (T4/TSH/FREE T3) ECG 12 lead 04/23/2025 PSA Total+% Free 03/16/2025 PSA, SCREENING 02/10/2025 CMP (COMP MET BATISTA) w/eGFR CKD-EPI 2024 CBC WITH DIFF 02/10/2025 Next Appt Details Provider Name:Tin Klein, 09:00:00 AM, [address] [place], [address], Provider Name:Tin Klein, 08:00:00 AM, [address] [place], [address], Insurance Providers Payer Name Payer Address Payer Phone Subscriber Number Group Number Insured Name Patient Relationship to Insured Coverage Start Date Coverage End Date [employer] MED[employer]ARE ADV PLAN [address] [address] [place] [address] [id number] Demarcus Panchal Self - patient is the insured [facility] [address]O [address] [place] [phone] [id number] Panchallf - patient is the insured Medical (General) History Medical History History ICD Code COPD (chronic obstructive pulmonary dise ase) J44.9 Pulmonary fibrosis, unspecified J84.10 Post-COVID syndrome B94.8 HLD (hyperlipidemia) E78.5 Peripheral eosinophilia D72.19 GERD (gastroesophageal reflux disease) K 21.9 CAD (coronary artery disease) I25.10 HTN (hypertension) I10 Bronchiectasis J47.9 Alpha 1-antitrypsin PiMS phenotype Z14.8 [facility] (current) use of inhaled stero ids Z79.51 History of tobacco abuse Z87.891 Surgical History Surgery Date(Month/Year) sinus surgery-polyps percutaneous transluminal coronary angioplastycoronary artery stent placement shoulder surgery-rightHospitalization History Reason Date(Month/Year) [facility]- Pneumonia/ Respiratory Acute Exacerbation of COPD-[facility]
--- OUTSIDE RECORDS SUMMARY | 2025-04-23 07:30 | XMS_ITS | Clinical Summary ---
Author Organization [facility] Address [address] [place] [address] Care Team Providers Care Tissue Packer Name Role Phone Rene Castro MD Unavailable [phone] Evens Morgan DO Unavailable [phone] John Baptiste MD Unavailable [phone] Jessica Jenkins DIAL EQUIPMENT ENGINEER Unavailable [phone] Torres Klein MD Primary Care Provider [phone] Allergies Active AllergyReactionsCriticalityNoted DateCommentsCodeineNausea And Vomiting, YvbyvNjb40/01/2006 Other Reaction(s): Vomiting HvsdjgxmiegGrpqxGxf80/27/2013 Other Reaction(s): Airway constriction Medications MedicationSigDispense QuantityRefillsLast FilledStart DateEnd DateStatus ezetimibe (Zetia) 10 MG tablet Take 10 mg by mouth at bedtime.Active losartan (Cozaar) 50 MG tablet Take 50 mg by mouth in the morning.Active Multiple Vitamin (Multivitamin Adult) tablet Take 1 tablet by mouth in the morning.Active triamcinolone (Nasacort Allergy 24HR) 55 MCG/ACT nasal inhaler Administer 1 spray into each nostril in the morning.Active cholecalciferol (Vitamin D-3) 50 MCG (1999) tablet Take 50 mcg by mouth in the morning.Active magnesium oxide (Mag-Ox) 250 MG tablet Take 250 mg by mouth in the morning.Active nitroglycerin (Nitrostat) 0.[address] 0.4 mg under the tongue every 5 (five) minutes if needed for chest pain. Active omega-3 (fish oil) 1200 MG capsule Take 1 capsule by mouth 1 (one) time each day.Active alpha tocopherol (Vitamin E) 400 units capsule Take 400 Units by mouth in the morning.Active zinc 30 MG tablet Take 30 mg by mouth 1 (one) time each day.Active albuterol HFA 90 mcg/act inhaler Indications:Chronic obstructive pulmonary disease, unspecified COPD type (HCC) Inhale 2 puffs every 6 (six) hours if needed for wheezing or shortness of breath 18 g ctive albuterol (2.5 MG/3ML) 0.083% nebulizer solution Indications:Chronic obstructive pulmonary disease, unspecified COPD type (HCC) Take 3 mL (2.5 mg) by nebulization every 8 (eight) hours 810 mL ctive fluticasone (Flonase) 50 MCG/ACT nasal spray Administer 2 sprays into each nostril Daily07/25/2023ctive sildenafil (Viagra) 100 MG tablet Indications:Benign prostatic hyperplasia without urinary obstructionTake 1 tablet (100 mg) by mouth if needed for erectile dysfunction 10 tablet ctive rosuvastatin (Crestor) 40 MG tablet Take 40 mg by mouth in the morning.10/18/2023ctive tamsulosin (Flomax) 0.4 MG 24 hr capsule Indications:Benign prostatic hyperplasia without urinary obstructionTake 1 capsule (0.4 mg) by mouth Daily 90 capsule ctive omeprazole (PriLOSEC) [address] capsule Indications:Gastroesophageal reflux disease without esophagitisTake 1 capsule (20 mg) by mouth Daily 90 capsule ctive carvedilol (Coreg) 6.25 MG tablet Indications:Essential hypertensionTake 1 tablet (6.25 mg) by mouth in the morning and 1 tablet (6.25 mg) in the evening. Take with meals. 180 tablet ctive hydrocortisone 2.5 % cream Indications:Erythema intertrigoApply thin layer to affected areas on groin up once or twice daily prn itching. Hold if not itchy. 28 g 5Active Guixzyncjcx-Vkmjskqrt-Mptlhi (Trelegy Ellipta) 100-62.5-25 MCG/ACT aerosol powder Indications:Chronic obstructive pulmonary disease, unspecified COPD type (HCC) Inhale 1 puff Daily 1 each 1105Active furosemide (Lasix) 40 MG tablet Take 40 mg by mouth Daily as neededActive Active Problems ProblemNoted DateDiagnosed DateElevated PSA5Chronic systolic congestive heart szryyeb7209/20/20236098Niewdxfrbkp50/25/2024ost herpetic bxypcycoz75/18/2023 Testicular /18/2023olyp of nasal sinus03/14/2023hronic sinusitis 03/14/2023hronic obstructive pulmonary kyrvnvj5303/14/2023ronchiectasis 03/14/2023ronchial lwqdsq2603/14/2023enign prostatic hyperplasia without urinary lxvjhxrryfc29/18/2023ure jjgxrouqctucwbcnbppc00/18/2023Status post coronary artery stent jffrronyp58/19/2023Ischemic srvbuvliuiarim05/19/2023Former smoker 02/13/2023Essential /19/2023astroesophageal reflux disease without rhovblmynji00/19/2023oronary artery disease involving [place] coronary artery of [place] heart without angina byzdybhk51/19/2023 Immunizations ImmunizationAdministration DatesNext DueInfluenza, seasonal, injectable, preservative free08/16/2018Influenza, trivalent, kgmoihlwig36/20/2019 Pneumococcal Conjugate PCV 13008/16/2018Pneumococcal Polysaccharide PPSV23 05/28/2018,09/30/2012Pneumococcal, Laviunjdjnk28/06/2013Td (adult), unspecified 2007Tdap08/10/2017Zoster, live12/21/2016 Family History Medical HistoryRelationNameCommentsAneurysmFatherDementiaMotherDiabetesMother Heart diseaseSiblingKidney failureSiblingNo Known ProblemsSonRelationNameStatus IvwqehoeXqhrjxa5MmoihrHwwusplrFrurkdHblvanewArjlwrqXjbucv7Pay3 Social History Tobacco UseTypesPacks/DayYears UsedDateSmoking Tobacco: FormerCigarettesQuit: 05/28/1992 Tobacco Cessation:Counseling Given: Not Answered Alcohol UseStandard Drinks/WeekCommentsNever0 (1 standard drink = 0.6 oz pure alcohol)caffeine: coffee 5-6 cups a dayPHQ-2AnswerDate RecordedPatient Health Questionnaire-2 Kxhpa309Sex and Gender InformationValueDate RecordedSex Assigned at JguipWqil01/19/2023 9:05 AM EDTLegal SwwHotr0008/09/2022 7:10 PM EDT Gender KxmvrpvoOogb02/19/2023 9:05 AM EDTSexual OrientationNot on fileOccupation IndustryJob Start DateJob End Dateretired- [employer] (21 yrs),Not on fileNot on fileNot on file Last Filed Vital Signs Vital SignReadingTime TakenCommentsBlood Gitovtyu461/6404 1:29 PM EDT Wfjqx8085 1:29 PM GJXSdceoiugcpy03.3 ??C (97.3 ??F)05/07/2024 5:27 PM ESTRespiratory Lxzx535006/30/2023 10:23 AM ESTOxygen Xovdbcqnzy28%09/24/2024 1:29 PM EDTInhaled Oxygen Concentration--Oxmuse922 kg (241 lb)09/24/2024 1:29 PM EDT Qmmiki425.7 cm (5' 8 )09/24/2024 1:29 PM EDTBody Mass Index36.64009/24/2024 1:29 PM EDT Plan of Treatment Not on file Insurance Care Teams Team MemberRelationshipSpecialtyStart Date Torres Klein MD [address] [place] [facility] [place] [address] PCP - GeneralFamily Medicine10/17/24 Rene Castro MD [address] [facility] [address] [place] [address] Referring PhysicianCardiology09/05/23 Evens Morgan DO [address] [facility] [address] [place] [address] Referring PhysicianPulmonary Disease09/24/24 John Baptiste MD [address] [facility] [place] [address] Referring PhysicianUrology09/24/24 Jessica Jenkins NP [address] [facility] [address] [place] [address] Nurse PractitionerFamily Medicine09/24/24 [facility]09/24/24
--- OUTSIDE RECORDS SUMMARY | 2025-04-23 07:30 | XMS_ITS | Clinical Summary ---
Author Organization [facility] Address [address] [place] [address] Care Team Providers Care Mission Support Specialist Name Role Phone Unavailable Primary Care Provider Unavailabl e Allergies Active AllergyReactionsCriticalityNoted MuqkDxkzetzsXdsprfeTdhqfrgm17/01/2006 Codeine-GuaifenesinOther: See Hsiqxdxt07/21/2021GuaifenesinOther: See Comments 05/23/2013 Medications MedicationSigDispense QuantityRefillsLast FilledStart DateEnd DateStatus albuterol HFA (PROVENTIL HFA, VENTOLIN HFA) 90 mcg/actuation inhaler 11/07/2021ctive atorvastatin (LIPITOR) 40 mg tablet 04/29/2022ctive benzonatate (TESSALON PERLE) 100 mg capsule take 1 capsule by mouth three times a day if needed for cough SWALLOW WHOLE 01/17/2022ctive carvedilol (COREG) 6.25 mg tablet 04/25/2021ctive doxycycline hyclate (VIBRAMYCIN) 100 mg capsule 01/17/2022ctive hydroCHLOROthiazide (HYDRODIURIL, ESIDRIX) 25 mg tablet Take by mouth q 24 HR.10/11/2020ctive losartan (COZAAR) 25 mg tablet 08/15/2021ctive nitroglycerin sublingual (NITROQUICK) 0.4 mg SL tablet Dissolve under the tongue.Active omeprazole (PRILOSEC) 20 mg capsule 08/15/2021ctive tamsulosin (FLOMAX) 0.4 mg 06/28/2020ctive valACYclovir (VALTREX) 1 gram TAKE 1 TABLET BY MOUTH THREE TIMES A DAY FOR 7 DAYS02/01/2022ctive fluticasone-salmeterol HFA (ADVAIR) 115-21 mcg/actuation inhaler 01/02/2022ctive vitamin E, dl,tocopheryl acet, (VITAMIN E, DL, ACETATE,) 180 mg (400 unit) capsule Take 1 tablet by mouth once daily.09/04/2016Active aspirin, enteric coated (ASPIRIN, ENTERIC COATED) 81 mg EC tablet 81 mg.06/07/2016Active ezetimibe (ZETIA) 10 mg tablet Take 1 tablet by mouth once daily.08/18/2019Active Zinc Gluconate 30 mg tab Take by mouth q 24 HR.Active Active Problems No known active problems Family History Medical HistoryRelationCommentsHeartBrotherHeartFatherDiabetesMotherRelation StatusCommentsBrotherFatherMother Social History Tobacco UseTypesPacks/DayYears UsedDateSmoking Tobacco: NeverSmokeless Tobacco: Never Tobacco Cessation:Counseling Given: Not Answered Alcohol UseStandard Drinks/WeekCommentsNot Currently0 (1 standard drink = 0.6 oz pure alcohol)Sex and Gender InformationValueDate RecordedSex Assigned at Not on fileLegal RmvPssm30/01/2022 1:29 PM ESTGender IdentityNot on fileSexual OrientationNot on file Plan of Treatment Health MaintenanceDue DateLast DoneCommentsAnxiety Gyptxnhtx62/07/1971Depression Ipyxrnaeq39/07/1971Hepatitis C Oceudukwz45/07/1971Lipid Afvxsaqcm91/07/1988CT Ilrzagxjndpn25/07/1998Cologuard (FIT-DNA)01/01/19988941Sodwgxsvrdo60/07/1998 Colorectal Cancer Gpeultohv93/07/1998Diabetes Cpntujsrn90/07/1998Fecal Occult Blood01/01/19984622Fvpxhqoxyvasp19/07/1998Shingrix Vaccine (2 of 3)02/15/2017 12/21/2016Advance Directive Uaeizigdab00/01/2025ovid-19 Vaccine ( - 2024- season)2025Influenza Vaccine (#1)5105/28/2018, 08/16/2018, 05/15/2017, Additional history existsDTaP,Tdap,Td Vaccine (2 - Td or Tdap) 8008/10/2017, 2007RSV Vaccine (1 - 1-dose 75+ series)01/02/2028 Pneumococcal Vaccine: 50+Xdqbrxxro25/22/2019, 05/28/2018, 09/30/2012, Additional history exists Insurance
--- OUTSIDE RECORDS SUMMARY | 2025-04-23 07:30 | XMS_ITS | Clinical Summary ---
Author Organization [facility] Address [address] [place] [address] Phone Care Team Providers Care Call Center Team Leader Name Role Phone Torres Klein MD Primary Care Provider [phone] Allergies Active AllergyReactionsCriticalityNoted JlvzFqudzznoWbzmjmiFqutpkt34/19/2023 Medications MedicationSigDispense QuantityRefillsLast FilledStart DateEnd DateStatus omega-3 fatty acids-fish oil (One-Per-Day [place]-3) 684-1,200 mg capsule Take as directedActive omeprazole (PriLOSEC) [address] capsule Take 1 capsule (20 mg) by mouth once daily.08/15/2021ctive tamsulosin (Flomax) 0.4 mg 24 hr capsule Take 2 capsules (0.8 mg) by mouth once daily.06/28/2020ctive magnesium oxide (Mag-Ox) 250 mg magnesium tablet Take 1 tablet (250 mg) by mouth once daily.Active cholecalciferol (Vitamin D-3) 50 MCG (1999 UT) tablet Take 1 tablet (50 mcg) by mouth once daily.Active zinc gluconate 30 mg tablet Take 1 tablet (30 mg) by mouth once daily.Active multivitamin (MULTIPLE VITAMINS ORAL) 1 tablet once daily.08/24/2006ctive nitroglycerin (Nitrostat) 0.4 mg SL tablet Indications:Coronary artery disease involving nenana coronary artery of nenana heart without angina pectorisPlace 1 tablet (0.4 mg) under the tongue every 5 minutes if needed for chest pain. May repeat dose every 5 minutes for up to 3 doses total. 25 tablet ctive benzonatate (Tessalon) 200 mg capsule Take 1 capsule (200 mg) by mouth 3 times a day as needed for cough. Do not crush or chew.Active fluconazole (Diflucan) 100 mg tablet Take 1 tablet (100 mg) by mouth once daily.Active levoFLOXacin (Levaquin) 750 mg tablet Take 1 tablet (750 mg) by mouth once daily.Active nystatin (Mycostatin) 100,000 unit/mL suspension 5 mL (500,000 Units) 4 times a day.Active cetirizine (ZyrTEC) 10 mg chewable tablet Chew 1 tablet (10 mg) once daily.Active fluticasone propion-salmeteroL (Advair HFA) 230-21 mcg/actuation inhaler Inhale 2 puffs 2 times a day. Rinse mouth with water after use to reduce aftertaste and incidence of candidiasis. Do not swallow.Active furosemide (Lasix) 40 mg tablet Take 1 tablet (40 mg) by mouth once daily as needed.Active montelukast (Singulair) 10 mg tablet Take 1 tablet (10 mg) by mouth once daily at bedtime.Active predniSONE (Deltasone) 10 mg tablet Take 1 tablet (10 mg) by mouth once daily.Active carvedilol (Coreg) 6.25 mg tablet Indications:Ischemic cardiomyopathyTake 0.5 tablets (3.125 mg) by mouth 2 times daily (morning and late afternoon). 90 tablet 305//ctive aspirin 81 mg EC tablet Indications:Ischemic cardiomyopathyTake 1 tablet (81 mg) by mouth once daily. 30 tablet 110530//6Active spironolactone (Aldactone) 25 mg tablet Indications:Ischemic cardiomyopathyTake 0.5 tablets (12.5 mg) by mouth once daily. 15 tablet 110530//6Active valsartan (Diovan) 40 mg tablet Indications:Essential hypertensionTake 1 tablet (40 mg) by mouth 2 times a day. 180 tablet ctive empagliflozin (Jardiance) 10 mg tablet Indications:Ischemic cardiomyopathyTake 1 tablet (10 mg) by mouth once daily. 90 tablet 5Active Active Problems ProblemNoted DateDiagnosed DateBMI 33.0-33.9,adult4CAD (coronary artery disease)02/13/2023Esophageal gsxulh1702/13/2023Essential hynsyfrekwbc61/19/2023 Geqpcduvtwihth33/19/2023Ischemic yusyihcofjfsvw28/19/2023Status post coronary artery stent wvynxirue66/19/2023Former yhbvxd9902/13/2023lass 2 obesity in adult 02/13/2023 Immunizations ImmunizationAdministration DatesNext DueFlu vaccine (IIV4), preservative free *Check age/dose*08/16/2018,05/15/2017Flu vaccine, trivalent, preservative free, age 6 months and greater (Fluarix/Fluzone/Flulaval)08/16/2018,04/28/2016, 03/05/2015,03/10/2014,03/28/2010Influenza, Rqiveucwnsy38/01/2019,03/24/2013, 05/06/2012,03/03/2011,05/28/2010,03/31/2010Influenza, trivalent, adjuvanted 04/16/2019Pneumococcal conjugate vaccine, 13-valent (PREVNAR 13)08/16/2018 Pneumococcal polysaccharide vaccine, 23-valent, age 2 years and older (PNEUMOVAX 23)05/28/2018,09/30/2012Pneumococcal, Fxxykhcayks27/06/2013Td (adult), ulyfmahttdf32/07/2007Tdap vaccine, age 7 year and older (BOOSTRIX, ADACEL) 08/10/2017Tetanus Toxoid, Tszdnmqexro59/07/2007Zoster, live12/21/2016 Family History Medical HistoryRelationNameCommentsAAAFatherarteriosclerotic cardiovascular diseaseFatherRelationNameStatusCommentsFather Social History Tobacco UseTypesPacks/DayYears UsedDateSmoking Tobacco: FormerCigarettesQuit: 1993Smokeless Tobacco: Never Tobacco Cessation:Counseling Given: Not Answered Alcohol UseStandard Drinks/WeekCommentsNever0 (1 standard drink = 0.6 oz pure alcohol)Sex and Gender InformationValueDate RecordedSex Assigned at BirthNot on fileLegal SmvTglb82/25/2022 10:57 PM ESTGender IdentityNot on fileSexual OrientationNot on file Last Filed Vital Signs Vital SignReadingTime TakenCommentsBlood Tgjtaswv889/6805 9:46 AM EDT Hqvjq533710/24/2024 9:46 AM EDTTemperature--Respiratory Rate--Oxygen Saturation-- Inhaled Oxygen Concentration--Qsyups165 kg (222 lb 6.4 oz)10/24/2024 9:46 AM EDT Fmngrc955.7 cm (5' 8 )10/24/2024 9:46 AM EDTBody Mass Index33.8210/24/2024 9:46 AM EDT Plan of Treatment Health MaintenanceDue DateLast DoneCommentsCT Xmokwqpsaobk1953Creatinine Level1953FIT-DNA (Cologuard)1953FIT3Potassium Level 1955 2485Kapclgzpfvxyh1953Diabetes Qapkqsbrw81/07/1971Hepatitis C Knmvovqdl62/07/1971RSV High Risk: (Elderly (60+) or Population) (1 - Risk 50-74 years 1-dose series)2003MMR Vaccines (1 of 1 - Standard series) 01/18/2017Zoster Vaccines (2 of 3)Abdominal Aortic Aneurysm (AAA) Yuznpityc85/07/2018Medicare Annual Wellness Visit (AWV)08/02/2022 08/01/2021, 08/02/2020, 07/07/2019Influenza Vaccine (#1), 03/28/2019, 08/16/2018, Additional history existsCOVID-19 Vaccine (1 - 2024- season)01/26/20257400Rsuugkwecscgzx43/27/44384211/21/2024, 11/21/2024, 03/20/2023 DTaP/Tdap/Td Vaccines (2 - Td or Tdap), 2007Lipid Panel/3049Asrhtycqxer48Colorectal Cancer Gqltvlotb02/02/2030Pneumococcal IcqupgxDzgjgywzr15/22/2019, 05/28/2018, 09/30/2012, Additional history existsHIB VaccinesAged OutNo longer eligible based on patient's age to complete this topicHPV VaccinesAged OutNo longer eligible based on patient's age to complete this topicHepatitis A VaccinesAged OutNo longer eligible based on patient's age to complete this topicHepatitis B VaccinesAged OutNo longer eligible based on patient's age to complete this topic IPV VaccinesAged OutNo longer eligible based on patient's age to complete this topicMeningococcal VaccineAged OutNo longer eligible based on patient's age to complete this topicRotavirus VaccinesAged OutNo longer eligible based on patient's age to complete this topic Procedures Procedure NamePriorityDate/TimeAssociated DiagnosisCommentsECHOCARDIOGRAM 11/21/2024 7:56 AM EDT from Last 3 Months or Most Recently Relevant to Health Maintenance Results * Echocardiogram (11/21/2024 7:56 AM EDT)Specimen (Source)Anatomical Location / LateralityCollection Method / VolumeCollection TimeReceived Time11/21/2024 7:56 AM EDT Narrative [facility] - 11/21/2024 3:36 PM EDT [facility] ?[facility] [address] ?[address] ? [place] [address] ? Echocardiogram ? Signed ? Patient: Kwadwo Panchal ?MR#: [id number] ?? 652 ? : 1955 ?Acct:[id number] ? Age/Sex: 69 / M ?ADM Date: 11/21/24 ? Loc: EL ?Room: ?Type: REG CLI ?? Attending Dr: Penelope Richmond APRN ? Ordering Provider: Penelope Richmond APRN ?? Date of Service: 11/21/24/ ?? ECH/ECH echo transthoracic: ISCHEMIC CARDIOMYOPATHY ? Copies to: Penelope Richmond APRN ?? Alex Gaston MD ? BSA: 2.1 m2 ? BP: 127/80 mmHg ?? HR: 74 ?? Reason For Study: ISCHEMIC CARDIOMYOPATHY ?? History: HTN, HLD, Former Smoker, NE, Stents, Emphysema, COVID ? Interpretation Summary ?? Ejection Fraction = 30-35%. ?? There is moderate global hypokinesis of the left ventricle. ?? The left ventricle is severly dilated. ?? There is left ventricular diastolic dysfunction. ?? There is mild mitral regurgitation. ?? There is mild tricuspid regurgitation. ?? Compared to prior study, changes are noted. Progression of cardiomyopathy ?? compared to 02/05/23. ? Procedure/Quality: ?? A two-dimensional transthoracic echocardiogram with color ?? flow, Doppler and injection of contrast agent Definity was performed. The ?? study was technically suboptimal in quality due to poor acoustic windows . ?? Left Ventricle: ?? The left ventricular thickness is normal. The left ventricle ?? is severly dilated. Ejection Fraction = 30-35%. There is left ventricular ?? diastolic dysfunction. There is moderate global hypokinesis of the left ?? ventricle. ?? Left Atrium: ?? The left atrium appears normal in size. ?? Right Atrium: ?? The right atrium appears normal in size. ?? Right Ventricle: ?? The right ventricle is normal in size and function. ?? Aortic Valve: ?? The aortic valve is normal in structure. No hemodynamically ?? significant valvular aortic stenosis. No aortic regurgitation is present. ?? Mitral Valve: ?? The mitral valve is normal in structure. No significant mitral ?? valve stenosis. There is mild mitral regurgitation. ?? Tricuspid Valve: ?? The tricuspid valve is normal in structure. There is mild ?? tricuspid regurgitation. ?? Pulmonic Valve: ?? The pulmonic valve is not well visualized. No significant ?? pulmonic regurgitation. ?? Arteries: ?? The aortic root is normal size. ?? Pericardium/Pleura: ?? No pericardial effusion seen. ?? IVC/Hepatic Veins: ?? The inferior vena cava is normal in size, with a normal ?? collapsibility index. ?? Measurements with Normals ?? IVSd: 1.1 cm ?(0.7-1.1 cm)LVIDd: 6.0 cm ? (3.7-5.4 cm) ?? LVPWd: 1.1 cm ? (0.7-1.1 cm)LVIDs: 5.2 cm ? (2.3-3.6 cm) ?? LA dimension: 4.3 cm ??(2.3-4.0 cm)Ao root diam: 3.1 cm(2.0-3.6 cm) ?? asc Aorta Diam: 3.3 cm(2.1-3.4cm) ? Doppler with Normals ?? RVSP(TR): 40.7 mmHg ? (18-35mmHg) ?? LV V1 max: 107.7 cm/sec ?? (0.7-1.7m/s)MV E max remi: 74.7 cm/sec(0.8-1.3m/s) ?? MV A max remi: 103.3 cm/sec(0.0-0.0m/s) ?? MV E/A: 0.72 (<1.5) ?? MMode/2D Measurements ?? Calculations ?? RVDd: 2.7 cm ?FS: 13.0 % ?MV Diam: 0.38 cm Ao root area: ?? TAPSE: 2.0 cm ? EDV(Teich): ?7.6 cm2 ?? RV S Remi: 16.6 cm/sec 181.5 ml ?ESV(Teich): ?131.9 ml ?EF(Teich): 27.3 % ? __ ? LVOT diam: 2.2 cm ? LVLd ap4: 9.5 cm ?SV(MOD-sp4): ? LAV(MOD-sp4): ?? LVOT area: 3.7 cm2 ?EDV(MOD-sp4): ? 82.0 ml ?51.9 ml ?297.0 ml ? LAV(MOD-sp2): ?LVLs ap4: 8.8 cm ? 50.5 ml ?ESV(MOD-sp4): ?215.0 ml ?EF(MOD-sp4): 27.6 % ? __ ? LA A2 area: 17.1 cm2 ?? LA A4 area: 18.9 cm2 ?? LA length (vol): ?? 5.3 cm ?? LA vol: 51.9 ml ?? LA vol index: ? 24.5 ml/m2 ? Doppler Measurements ?? Calculations ?? MV dec time: ?MV V2 max: ? E/E' lat: 10.2 ?MV P1/2t max remi: ?? 0.26 sec ?112.5 cm/sec ? E/E' med: 12.3 ?88.2 cm/sec ?MV max P.0 mmHg ? MV P1/2t: 80.6 msec ?MV V2 mean: ?MVA(P1/2t): 2.7 cm2 ?72.9 cm/sec ?MV dec slope: ?MV mean P.4 mmHg ?MV V2 VTI: 30.4 cm ? 320.8 cm/sec2 ?MV area (1 diam): ?0.11 cm2 ?MVA(VTI): 2.8 cm2 ?MV Flow area(1diam): ?0.11 cm2 ? __ ?? Ao V2 max: ?AI max remi: ?LV V1 max PG: ? MR max remi: ?? 145.2 cm/sec ?293.2 cm/sec ? 4.6 mmHg ?482.5 cm/sec ?? Ao max PG: ?AI max P.4 mmHg LV V1 mean PG: ?MR max P.3 mmHg ?? 8.4 mmHg ?AI dec slope: ?2.3 mmHg ?? Ao mean PG: ? 98.5 cm/sec2 ? LV V1 mean: ?? 4.3 mmHg ?AI P1/2t: 871.5 msec 69.3 cm/sec ?? Ao V2 mean: ?LV V1 VTI: 22.9 cm ?? 97.4 cm/sec ?? Ao V2 VTI: 30.3 cm ?? TURNER(I,D): 2.8 cm2 ? TURNER(V,D): 2.8 cm2 ? __ ? SV(MV 1 diam): ?TV max P.0 mmHg TR max remi: ? RF(MV,Ao)(1 diam): - ?? 3.4 ml ? 298.6 cm/sec ?67.0 ?? SI(MV 1 diam): ? TR max PG: ?RF(MV,LVOT)(1diam): - ?? 1.6 ml/m2 ?35.7 mmHg ? 24.0 ? RAP systole: ? 5.0 mmHg ? Transcribed By: ?SCV ?? Performed At: ?11/21/24 0756 ?? Signed By: ?Alex Gaston MD ?11/21/24 1535 Authorizing ProviderResult TypeResult StatusPenelope Richmond POWER TONG OPERATOR-CNPCV ECHO PROCEDURESFinal ResultPerforming OrganizationAddressCity/State/ZIP CodePhone Number [facility] [address] [place] [address], [place] from Last 3 Months or Most Recently Relevant to Health Maintenance Insurance * Guarantor: Kwadwo Panchal TypeRelation to PatientDate of BirthPhone Billing AddressPersonal/EdrwbrWsij1955 [address] [place] [address] Care Teams Team MemberRelationshipSpecialtyStart DateEnd Torres Klein MD [address] [facility] [address] PCP - GeneralFamily Medicine10/24/24
[2025-04-23 07:31] LABS: Anion Gap 15.2; Blood Urea Nitrogen 10.0 mg/dL (7.0-18.0); Calcium 8.5 mg/dL (8.5-10.1); Carbon Dioxide 24.6 mmol/L (21.0-32.0); Chloride 101 mmol/L (98-107); Estimated GFR (African America >60 (>=60 mL/min/1.73m^2); Estimated GFR (Non-African Ame >60 (>=60 mL/min/1.73m^2); Glucose 104 mg/dL (74-106); Lactate/Lactic Acid 1.4 mmol/L (0.4-2.0); Potassium 3.8 mmol/L (3.5-5.1); Sodium 137 mmol/L (136-145)
--- OUTSIDE RECORDS SUMMARY | 2025-04-23 07:31 | XMS_ITS | Encounter Summary ---
Author Organization [facility] Address [address] [place] [address] Care Team Providers Care Gis Software Engineer Name Role Phone Torres Klein MD Primary Care Provider [phone] Encounter Details DateTypeDepartmentCare Team (Latest Contact Info)Sjaslbowtqu42/26/2025Telephone [facility] at [facility] [address] [place] [address] Elaine Garcia MA Social History Tobacco UseTypesPacks/DayYears UsedDateSmoking Tobacco: FormerCigarettes Smokeless Tobacco: NeverAlcohol UseStandard Drinks/WeekCommentsNot Currently0 (1 standard drink = 0.6 oz pure alcohol)Sex and Gender InformationValueDate RecordedSex Assigned at GxxmpNhps55/09/2025 10:12 AM EDTLegal KdhJsma0802/12/2024 10:58 AM EDTGender IkywfcmtBtne30/09/2025 10:12 AM EDTSexual Orientation Heterosexual or Xlpgjotq59/09/2025 10:12 AM EDTdocumented as of this encounter Miscellaneous Notes * Telephone Encounter - Elaine Garcia MA - 04/22/2025 11:40 AM EST Images from the original note were not included. Regarding cardiac MRI result from 04/20/2025: Luba Ortega MD to Me (Selected Message) EE 04/22/25 9:13 AM Please let him know that his ejection fraction is 36%; this is not above the threshold that would necessitate an ICD. He does not need an ICD. Thank you Patient notified of result and he verbalized understanding. documented in this encounter Plan of Treatment Not on file documented as of this encounter Visit Diagnoses Not on filedocumented in this encounter Care Teams Team MemberRelationshipSpecialtyStart DateEnd Date Torres Klein MD [address] [facility] [address] [address] PCP - GeneralFamily Medicine12/03/24documented as of this encounter
--- OUTSIDE RECORDS SUMMARY | 2025-04-23 07:31 | XMS_ITS | Clinical Summary ---
Author Organization [facility] Address [address] [place] [address] Care Team Providers Care Director Of Capital Giving Name Role Phone Torres Klein MD Primary Care Provider [phone] Allergies Active AllergyReactionsCriticalityNoted DateCommentsCodeineHallucinations,Other, Nausea And Vomiting,JlejcvrKce89/01/2006 Other Reaction(s): Vomiting Codeine-OraxzsbmyupQibyq21/21/5728MtcphhrezbaEosnrSai00/27/2013 Other Reaction(s): Airway constriction Medications MedicationSigDispense QuantityRefillsLast FilledStart DateEnd DateStatus albuterol 90 mcg/actuation inhaler Inhale.3Active fluticasone (Flonase) 50 mcg/actuation nasal spray Administer 2 sprays into each nostril in the morning.Active benzonatate (Tessalon) 200 mg capsule Take 200 mg by mouth if needed in the morning, at noon, and at bedtime.Active Advair HFA 230-21 mcg/actuation inhaler Inhale 2 puffs in the morning and at bedtime.5Active omeprazole (PriLOSEC) [address] capsule Take 20 mg by mouth before breakfast.08/15/2021ctive cetirizine (ZyrTEC) 10 mg chewable tablet Chew 10 mg in the morning.Active spironolactone (Aldactone) 25 mg tablet Take 25 mg by mouth in the morning.5Active empagliflozin (Jardiance) 10 mg Take 10 mg by mouth in the morning.5Active montelukast (Singulair) 10 mg tablet Take 10 mg by mouth in the morning.5Active ipratropium-albuteroL (Duo-Neb) 0.5-2.5 mg/3 mL nebulizer solution Take 3 mL by nebulization in the morning, afternoon, and at bedtime.09/16/2024 Active metoprolol succinate XL (Toprol-XL) 25 mg 24 hr tablet Indications:Coronary artery disease involving [place] coronary artery of [place] heart without angina pectorisTake 0.5 tablets (12.5 mg) by mouth once daily as directed. Do not crush or chew. 45 tablet ctive Additional Information Patient not taking.Reported on 03/16/2025 atorvastatin (Lipitor) 40 mg tablet Indications:Coronary artery disease involving [place] coronary artery of [place] heart without angina pectorisTake 1 tablet (40 mg) by mouth at bedtime. 90 tablet ctive Additional Information Patient not taking.Reported on 03/16/2025 carvedilol (Coreg) 6.25 mg tablet Take 6.25 mg by mouth with breakfast and with evening meal.04/16/2024ctive omega-3 fatty acids-fish oil (One-Per-Day [place]-3) 684-1,200 mg capsule Take 1 capsule by mouth once daily as directed.Active metoprolol succinate XL (Toprol-XL) 25 mg 24 hr tablet Indications:Ischemic cardiomyopathyTake 1 tablet (25 mg) by mouth once daily as directed. 90 tablet 6Active tamsulosin (Flomax) 0.4 mg 24 hr capsule Take 0.8 mg by mouth in the morning.Expired Active Problems ProblemNoted DateDiagnosed DateAcute hypoxic respiratory qqsdbek1603/16/2025 Chronic asthmatic bronchitis with acute dhoqfjjcehjj03/20/2025ommunity acquired abmloioaj79/20/2025OVID-191Encounter for colonoscopy due to history of adenomatous colonic lwlosb7603/16/20258623Frnyflvx51/20/2025hronic ischemic heart xkrvjff5212/09/2024 Overview (12/09/2024): Nov 16, 2011 Entered By: DONAL NEGRON Comment: 5 stents placed Jun 2009 Chronic rixjtwgfrwe84/15/2025Encounter for screening, nzmzbbeqeag72/15/2025 Enlarged jqfrgfer74/15/2025Urinary aqiftroqm53/15/1465Stkqedgl44/15/2025oronary artery disease involving [place] coronary artery of [place] heart without angina /15/2025Elevated PSA5BMI 33.0-33.9,adult05/15/2024hronic systolic congestive heart snlgiop8309/20/20239882Emcgovtccup89/25/2024enign prostatic hyperplasia without urinary /18/2023ronchial kmnwyn1603/14/2023 Ayjqdvhvpipxzc78/18/2023hronic obstructive pulmonary ksshqjw7603/14/2023olyp of nasal sinus03/14/2023ost herpetic jnommyskb32/18/2023ure hypercholesterolemia 03/14/2023Testicular wiqhyufzogwf62/18/2023therosclerotic heart disease of [place] coronary artery without angina xmgbecvw94/19/2023Essential hypertension 02/13/2023Former ncwmjp4702/13/2023astroesophageal reflux disease without cqpufiywdet37/19/2915Ewluekpgcaxkcu41/19/2023Ischemic ryzyciwrrpektn74/19/2023 Status post coronary artery stent weuonulpl36/19/2023 Encounters DateTypeDepartmentCare TmduZeduqiitjjw72/26/2025Telephone [address] [phone] Elaine Garcia MA 04/20/2025 9:34 AM EST - 04/20/2025 11:59 PM ESTHospital Encounter [facility] [address] [place] [address] Ischemic cardiomyopathy Discharge Disposition: Home or Self Care ()03/16/2025 9:30 AM EDTOffice Visit [facility] [address] [place] [phone] Luba Ortega MD Ischemic cardiomyopathy (Primary Dx); Severe persistent asthma without complication (CMS/HCC); Coronary artery disease involving [place] coronary artery of [place] heart without angina pectorisfrom Last 3 Months Family History RelationNameStatusCommentsFatherDeceasedMotherDeceased Social History Tobacco UseTypesPacks/DayYears UsedDateSmoking Tobacco: FormerCigarettes Smokeless Tobacco: Never Tobacco Cessation:Counseling Given: Not Answered Alcohol UseStandard Drinks/WeekCommentsNot Currently0 (1 standard drink = 0.6 oz pure alcohol)Sex and Gender InformationValueDate RecordedSex Assigned at Male12/03/2024 10:12 AM EDTLegal LvrSrzp2902/12/2024 10:58 AM EDTGender Identity Male12/03/2024 10:12 AM EDTSexual OrientationHeterosexual or Rdatuhti50/09/2025 10:12 AM EDT Last Filed Vital Signs Vital SignReadingTime TakenCommentsBlood Oobyivwb903/7103/16/2025 9:39 AM EDT Oglcl765503/16/2025 9:39 AM EDTTemperature--Respiratory Rate--Oxygen Pjkvigjjpg71% 03/16/2025 9:39 AM EDTInhaled Oxygen Concentration--Uyxdaw315 kg (223 lb) 03/16/2025 9:39 AM IACDroxbn283.7 cm (5' 8 )03/16/2025 9:39 AM EDTBody Mass Index33.9103/16/2025 9:39 AM EDT Plan of Treatment Health MaintenanceDue DateLast DoneCommentsCT Mqruxrezynuz1953iabetes: Hemoglobin A1C1953FIT-DNA1953FIT1953FOBT1955Medicare Annual Wellness (AWV)1955 3336Cmnsmjtprhpqn1953epression Screening 1965Zoster Vaccines (1 of 2)Fall Risk Screening 2018COVID-19 Vaccine ( season)2025Influenza Vaccine (#1) , 03/28/2019, 08/16/2018, Additional history existsAdult Tymhjud16/16/, 01/01/20079656Zweharlncii30/Colorectal Cancer Tsowqbfzj03/02/2030Pneumococcal Vaccine: 50+ DrwwuRrraxosyf69/22/2019, 05/28/2018, 09/30/2012, Additional history existsHIB VaccinesAged OutNo longer eligible based on patient's age to complete this topicHPV VaccinesAged OutNo longer eligible based on patient's age to complete this topicIPV VaccinesAged OutNo longer eligible based on patient's age to complete this topicMeningococcal B VaccineAged OutNo longer eligible based on patient's age to complete this topicMeningococcal VaccineAged OutNo longer eligible based on patient's age to complete this topicRotavirus VaccinesAged OutNo longer eligible based on patient's age to complete this topic Procedures Procedure NamePriorityDate/TimeAssociated DiagnosisCommentsMRI CARDIAC MORPHOLOGY AND FUNCTION W AND WO IV BADTYVQABupgdbg84/24/2025 11:56 AM EST Ischemic cardiomyopathy from Last 3 Months Results * MR cardiac morphology and function [...] signed: Ricardo Mora. Authorizing ProviderResult TypeResult StatusEhab Jordan SHELLEYIMKatharine MRI PROCEDURES Final Result from Last 3 Months Insurance Care Teams Team MemberRelationshipSpecialtyStart Date Torres Klein MD [address] [place] [address] [facility]12/03/24
[2025-04-23 08:08] LABS: SARS-CoV-2 Ag NEGATIVE (NEGATIVE)
--- OUTSIDE RECORDS SUMMARY | 2025-04-23 09:34 | XMS_ITS | CCD ---
Author Organization [facility] Care Team Providers Care Instrument Designer Name Role Phone Sera Flwoer Unavailable Unavailable Unavailable Unavailable Primary Care Provider Unavailabl e Unavailable Unavailable DEANDRA BENDER Attending Unavailable DEANDRA BENDER Referring Unavailable MAU RANDLE Attending Unavailable DEANDRA BENDER Attending Unavailable DEADNRA BENDER Attending Unavailable DEANDRA BENDER Referring Unavailable MD Sera Flower Primary Care Provider MD Sera Flower Other Provider MD Rene Cortez Attending Provider [phone] Dr. Sera Flower Primary Care Unavailab Rene Nobles Referring Unavailable Ching, Dr. Sera Frost Primary Care Unavailab Rene Nobles Attending Unavailable Dr. Sera Flower Primary Care Unavailab Rene Nobles Attending Unavailable Ching, Dr. Sera Frost Primary Care Unavailab Rene Nobles Attending Unavailable Sera Flower MD Primary Care Provider MD Sera Flower Primary Care Provider [phone] DO Jasper Martinez Emergency Provider [phone] Sera Flower MD Unavailable Sera Flower MD Primary Care Provider [phone] Indira RN, Tootie Unavailable Matthew SHELLEY, Rene Porter Unavailable [phone] Indira CAMACHO, Tootie Unavailable [phone] Sera Flower Primary Care Physician Unavailab moisés Carreon RN, Orquidea Unavailable [facility] Orquidea CAMACHO Unavailable Unavailable Rene Cortez MD Unavailable [phone] Eddie SHELLEY, Chalino P Unavailable [phone] John Baptiste MD Unavailable [phone] Gregory FAN MAIL CLERK, Gurjit Calabrese Unavailable RISALITI, SALLY R Attending [...] Provider Mirian Huffman MD Other Provider [facility] Other Provider Vincenzo Caraballo DO Attending Provider [phone] Torres Pate MD Primary Care Provider [phone] Kiya Richmond APRN Attending Provider Torres Pate [...] Primary Care Unavailable Kiya Richmodn Admitting Unavailable Sera Flower Primary Care Unavailable Ricardo Aguero Admitting Unavailable Vincenzo Caraballo Attending Unavailable Orquidea Sapp Consulting Unavailable [place]idea Sapp Consulting Unavailable Keila Davis Consulting Unavailable Rene Cortez Consulting Unavailable Tank Daley Consulting Unavail able Charito Rodriguez Consulting Unavailable Kannan Mendez Consulting Unavailab Kiya Bellamy Consulting Unavailable Katia Mckeon Consulting Unavailable Katie Dalton Consulting Unavailab Mirian Balderas Consulting Unavailable Joanne Eduoard Consulting Unavailable SU COOK Attending Unavailable SU COOK Admitting Unavailable John BAPTISTE Attending Unavailable COOK, John Hauser Attending Unavailable OrYasemin esqueda Attending Unavailable COOK, oJhn P Attending Unavailable COOK, John P Referring Unavailable COOK, John P Attending Unavailable COOK, John P Attending Unavailable COOK, John P Attending Unavailable COOK, John P Admitting Unavailable COOK, John P Referring Unavailable COOK, John P Attending Unavailable ELTAHAWY, EHAB Attending Unavailable MOY, EHAB Attending Unavailable Sera Flower MD Unavailable Sera Flower MD Primary Care Provider Indira CAMACHO, Tootie Unavailable [phone] Rene Cortez MD Unavailable [phone] Lauri CAMACHO, Orquidea Unavailable [facility] RN, Orquidea Unavailable Chalino Phoenix DO Unavailable [phone] John Baptiste MD Unavailable Unallocated Gita SHELLEY Provider Primary Care Provi gonzales Torres Pate MD Primary Care Provider Allergies Allergy ClassificationReported Allergen(s)Allergy TypeDate of OnsetReaction(s) Facility (20 sources)Codeine; Translations: [codeine]Drug Ypknmcp78-17-6443Hspysrml, Unknown, Nausea And Vomiting, Other, Unknown (qualifier value)[facility] (7 sources)Codeine / guaiFENesin; Translations: [CODEINE-GUAIFENESIN]Drug [id number]: See CommentsC[facility] Clinic [facility] (7 sources)guaiFENesin; Translations: [GUAIFENESIN]Drug [id number]: See CommentsC[facility] (20 sources)guaiFENesinDrug Mbmfsuw25-17-6482[facility] (1 source)CodeineDrug Egxreew89-23-1888JgwsdxragRiverview [facility] Institute Repository Medications Current Medications MedicationDrug Class(es)DatesSig (Normalized)Sig (Original)acetaminophen 325 mg / HYDROcodone bitartrate 5 mg oral tablet (1 source)Opioid AgonistStart: 31-26-1262bvij 1 tablet by mouth every hourNorco 325 mg-5 mg oral tablet See Instructions, 1 tab(s), Refill(s) 0, Take 1 hour prior to your procedure, [facility], 172, cm, 06/23/24 15:02:00 EST, Height/Length Dosing, 111.5, kg, 06/23/24 15:02:00 EST, Weight Dosing Start Date: 07/29/24 Status: Orderedacetaminophen 325 mg / traMADol hydrochloride 37.5 mg oral tablet (1 source)Opioid AgonistStart: 61-25-6811Erhwjdcz 325 mg-37.5 mg Tab See Instructions, 20 tab(s), Refill(s) 0, take 1-2 every 6 hrs prn for pain - following procedure, [facility], 172, cm, 06/23/24 15:02:00 EST, Height/Length Dosing, 111.5, kg, 06/23/24 15:02:00 EST, Weight Dosing Start Date: 07/29/24 Status: [id number] 200 actuat albuterol 0.09 mg/actuat metered dose inhaler (20 sources)beta2-Adrenergic AgonistStart: 93-96-4884bfvo 2 puff(s) by inhalation every six hours as needed for wheezingStart: 31-45-5129tebxyvcjj Start Date: 04/16/24 Status: Ordered Repeat number: 1Start: 82-26-2009pcqkemkrx Start Date: 04/16/24 Status: OrderedStart: 69-10-4651ywzuztzok (2.5 MG/3ML) 0.083% nebulizer solution Indications: Chronic obstructive pulmonary disease, unspecified COPD type (HCC) Take 3 mL (2.5 mg) by nebulization every 8 (eight) hours 810 mL 3 07/11/2023 ActiveStart: 91-93-7316utqsqrxhc (2.5 MG/3ML) 0.083% nebulizer solution Indications: Chronic obstructive pulmonary disease, unspecified COPD type (CMS/HCC) Take 3 mL (2.5 mg) by nebulization every 8 (eight) hours 75 mL 3 06/21/2023 ActiveStart: 06-14-2023 End: 71-05-1813bxra 2.5 mg by inhalation every four to six hours as needed for wheezingAlbuterol Sulfate 2.5 mg/0.5 mL solution for nebulization Discontinued 2.5 MG INHALATION EVERY 4-6 HOURS as needed for shortness of breath or wheezing June 14, 2023 1:00am October 17, 2024 2:00amStart: 97-79-1534ktpo 2 puff(s) by inhalation every six hours for wheezingalbuterol HFA 90 mcg/act inhaler Indications: Chronic obstructive pulmonary disease, unspecified COPD type (HCC) Inhale 2 puffs every 6 (six) hours if needed for wheezing or shortness of breath 18 g 3 07/09/2023 ActiveStart: 04-26-2018 End: 17-52-9458uqrs 2.5 mg by inhalation every four hours as needed for wheezing Albuterol Sulfate 2.5 mg /3 mL (0.083 %) solution for nebulization Discontinued 2.5 MG INHALATION Q4H as needed for shortness of breath or wheezing April 26, 2018 1:00am July 28, 2019 7:51amStart: 09-19-2017 End: 33-69-4905frsp 2.5 mg by inhalation every six hours as needed for wheezing Albuterol Sulfate 2.5 mg /3 mL (0.083 %) solution for nebulization Discontinued 2.5 MG INHALATION Q6H as needed for shortness of breath or wheezing September 19, 2017 12:00am October 17, 2024 2:00amalbuterol 0.833 mg/ml / ipratropium bromide 0.167 mg/ml inhalation solution (3 sources)Anticholinergic, beta2-Adrenergic AgonistStart: 28-41-3339utaq 3 mL by inhalation every six hours as needed for wheezingamoxicillin 875 mg / clavulanate 125 mg oral tablet (2 sources)Penicillin-class AntibacterialStart: 05-07-2024 End: 50-48-8205znde 1 tablet by mouth in the morningamoxicillin-clavulanate [...] sources)Platelet Aggregation Inhibitor, Nonsteroidal Anti-inflammatory Drug Start: 77-98-1154gego 81 mg by mouth once dailyAspirin Active 81 MG PO Daily July 28, 2019 12:00amStart: 07-28-2019 End: 98-75-0792rahc 1 tablet by mouth once dailyAspirin 81 mg Tablet,Chewable Discontinued 81 MG PO Daily July 28, 2019 1:00am October 17, 2024 2:00amStart: 06-07-2016 End: 62-45-2869gtah 1 tablet by mouth once dailyaspirin 81 mg EC tablet Indications: Ischemic cardiomyopathy Take 1 tablet (81 mg) by mouth once daily. 30 tablet 11 10/24/2024 10/24/2025 ActiveComment on above:81 mg.atorvastatin 40 mg oral tablet (20 sources)HMG-CoA Reductase InhibitorStart: 10-11-2020 End: 96-19-3566iyxc 1 tablet by mouth once dailyatorvastatin (Lipitor) 40 mg tablet Take 1 tablet (40 mg) by mouth once daily. 10/11/2020 10/18/2023 Discontinued (Therapy completed)Start: 04-26-2018 End: 45-46-5836Ubogvkmckksl (Lipitor) 80 mg tablet Discontinued April 26, 2018 1:00am July 28, 2019 7:51amStart: 04-26-2018 End: 06-15-1698Aueabytcaaat (Lipitor) 80 mg tablet Discontinued TABLET April 26, 2018 1:00am July 28, 2019 7:51ambenoxinate hydrochloride 4 mg/ml / fluorescein sodium 2.5 mg/ml ophthalmic solution (1 source)Diagnostic DyeStart: 05-01-2022 End: 44-03-6902wdbnhsqhkxy-benoxinate 0.25-0.4 % 1 Drop (FLURESS)benzonatate 100 mg oral capsule (18 sources)Non-narcotic AntitussiveStart: 02-21-2024 End: 28-77-8677vsaf 1 capsule by mouth three times daily as needed for cough benzonatate (Tessalon) 100 MG capsule Indications: Acute cough Take 1 capsule (100 mg) by mouth 3 (three) times a day as needed for cough Do not crush or chew. 30 capsule 1 02/21/2024 07/02/2024 DiscontinuedStart: 08-94-0682lsmc 1 capsule by mouth three times daily as needed for coughStart: 76-36-4478cmxk 1 capsule by mouth three times daily for coughbenzonatate (TESSALON PERLE) 100 mg capsule take 1 capsule by mouth three times a day if needed forcough SWALLOW WHOLE 0 01/17/2022 ActiveComment on above:take 1 capsule by mouth three times a day if needed for cough SWALLOW [id number] actuat budesonide 0.16 mg/actuat / formoterol fumarate 0.0048 mg/actuat / glycopyrrolate 0.009 mg/actuat metered dose inhaler (7 sources)Corticosteroid, beta2-Adrenergic AgonistStart: 05-07-2024 End: 89-94-7427atzy 2 puff(s) by mouth twice dailyBreztri Aerosphere 160-9-4.8 MCG/ACT aerosol INHALE 2 PUFFS BY MOUTH 2 TIMES A DAY, RINSE MOUTH AFTER USE 05/07/2024 07/02/2024 Discontinued (Therapy completed)Start: 09-05-2023 End: 55-39-3315Qvenwnc Aerosphere 160-9-4.8 MCG/ACT aerosol 09/05/2023 02/27/2024 Discontinuedcarvedilol 6.25 mg oral tablet (20 sources)alpha-Adrenergic Ne, beta-Adrenergic BlockerStart: 10-24-2024 End: 55-06-5484bkzr 0.5 tablet by mouth twice dailycarvedilol (Coreg) 6.25 mg tablet Indications: Ischemic cardiomyopathy Take 0.5 tablets (3.125 mg) by mouth 2 times daily (morning and late afternoon). 90 tablet 3 10/24/2024 10/24/2025 ActiveStart: 06-27-2023 End: 00-99-4756ibnl 1 tablet by mouth twice dailycarvedilol 6.25 mg Tab 6.25 mg = 1 tab(s), Oral, BID Start Date: 04/16/24 Status: Ordered Repeat number: 1 Start: 01-11-6770unkdyqznzi (COREG) 6.25 mg tabletStart: 06-28-2020 End: 17-05-6031lzqz 0.5 tablet by mouth twice dailycarvedilol (Coreg) 12.5 mg tablet Take 0.5 tablets (6.25 mg) by mouth 2 times a day. 06/28/2020 05/15/2024 Discontinued (Therapy completed)Start: 13-90-8681eptj 1 tablet by mouth twice dailycetirizine hydrochloride 10 mg oral tablet (4 sources)Histamine-1 Receptor AntagonistStart: 81-21-2291xjmq 1 tablet by mouth once dailycetirizine (ZyrTEC) 10 mg chewable tablet Chew 1 tablet (10 mg) once daily. Activeciprofloxacin 500 mg oral tablet (8 sources)Quinolone AntimicrobialStart: 48-15-7427ozqktdekijeux 500 mg Tab See Instructions, Start 3 days prior to procedure - twice a day for 7 days, # 14 tab(s), Refills(s) 0, Pharmacy: [facility], 172, cm, 06/23/24 15:02:00 EST, Height/Length Dosing, 111.5, kg, 06/23/24 15:02:00 EST, Weight Dosing Start Date: 07/29/24 Status: OrderedStart: 04-16-2024 End: 24-73-6413koko 1 tablet by mouth every twelve hoursCipro 500 mg Tab 500 mg = 1 tab(s), Oral, q12hr, X 14 day(s), # 28 tab(s), Refills(s) 0, Pharmacy: [facility], 172, cm, 04/16/24 9:51:00 EST, Height/Length Dosing, 108.1, kg, 04/16/24 9:51:00 EST, Weight Dosing Start Date: 04/16/24 Stop Date: 04/30/24 Status: Ordereddapagliflozin 10 mg oral tablet (4 sources)Sodium-Glucose Cotransporter 2 InhibitorStart: 63-30-7603kxlf 1 tablet by mouth once daily End: 78-82-9683vaga 1 tablet by mouth every twenty-four hoursdapagliflozin propanediol (Farxiga) 10 mg tablet Take 1 tablet (10 mg) by mouth once every 24 hours. 10/24/2024 Discontinued (Reorder)diazePAM 10 mg oral tablet (1 source)BenzodiazepineStart: 29-97-4222Sakhkz 10 mg Tab See Instructions, Take 1 hr prior to procedure, # 1 tab(s), Refills(s) 0, Pharmacy: [facility], 172, cm, 06/23/24 15:02:00 EST, Height/Length Dosing, 111.5, kg, 06/23/24 15:02:00 EST, Weight Dosing Start Date: 07/29/24 Status: Orderedempagliflozin 10 mg oral tablet (1 source)Sodium-Glucose Cotransporter 2 InhibitorStart: 10-24-2024 End: 12-88-0092hkgo 1 tablet by mouth once dailyempagliflozin (Jardiance) [...] mg/actuat metered dose nasal spray (20 sources)CorticosteroidStart: 87-94-0027Jozgl: 64-27-4904avao 2 spray(s) nasal route once dailyfluticasone (Flonase) 50 MCG/ACT nasal spray Administer 2 sprays into each nostril Daily 07/25/2023ctiveFluticasone Propion-Salmeterol (8 sources)Corticosteroid, beta2-Adrenergic AgonistStart: 58-37-0848lmzg 1 puff(s) by inhalation twice dailyStart: 00-97-3389esdp 1 puff(s) by inhalation twice dailyFluticasone Propion-Salmeterol (Advair Hfa) 115-21 mcg/actuation HFA aerosol inhaler Active 2 PUFF INHALATION Twice daily October 17, 2024 12:00am Start: 86-72-9682ckgrespkhwn-salmeterol HFA (ADVAIR) 115-21 mcg/actuation inhalerStart: 68-71-7418ynaiizxemzu-salmeterol HFA (ADVAIR) 115-21 mcg/actuation inhalertake 2 puff(s) [...] morning and 2 puffs before bedtime. 0 Gqozbf25 actuat fluticasone furoate 0.1 mg/actuat / umeclidinium 0.0625 mg/actuat / vilanterol 0.025 mg/actuat dry powder inhaler (16 sources)Anticholinergic, Corticosteroid, beta2-Adrenergic AgonistStart: 11-50-5667rrlb 1 puff(s) by inhalation once dggxlUwhsaynklym-Szmwrunio-Xzrvix (Trelegy Ellipta) 100-62.5-25 MCG/ACT aerosol powder Indications: Chronic obstructive pulmonary disease, unspecified COPD type ([facility]) Inhale 1 puff Daily 1 each 08/04/2024 ActiveStart: 66-58-5652zvig 1 puff(s) by inhalation once outjuYbfeuqtmrbq-Hwfytcgpa-Eegmng (Trelegy Ellipta) 100-62.5-25 MCG/ACT aerosol powder Inhale 1 puff 1 (one) time each day 07/25/2023 Activefurosemide 40 mg oral tablet (18 sources)Loop DiureticStart: 44-02-3353maye 1 tablet by mouth once daily Start: 01-23-2024 End: 94-72-2418wsoc 1 tablet by mouth once dailyfurosemide (Lasix) 40 MG tablet Indications: Essential hypertension ([facility]) Take 1 tablet (40 mg)by mouth Daily 90 tablet 2 01/23/2024 07/02/2024 Discontinued (Therapy completed) hydrocortisone 25 mg/ml topical cream (4 sources)CorticosteroidStart: 83-98-6333zlxsqjbzrqcppx 2.5 % cream Indications: Erythema intertrigo Apply thin layer to affected areas on groin up once or twice daily prn itching. Hold if not itchy. 28 g 07/17/2024 Activeiv contrast (will be provided with radiology test) (4 sources)Start: 06-21-2022 End: 32-14-7716kqpmhq 1 dose intravenously onceiv contrast (will be [...] Each 0 06/21/2022 06/22/2022 ActiveStart: 06-21-2022 End: 62-49-7523ch contrast (will be provided with radiology test) [...] (20 sources)Angiotensin 2 Receptor BlockerStart: 09-07-2022 End: 88-24-8656lgtu 1 tablet by mouth once dailylosartan 50 mg Tab 50 mg = 1 tab(s), Oral, Daily Start Date: 04/16/24 Status: Ordered Repeat number: 1Start: 08-15-2021 End: 21-96-9280xmwd 1 tablet by mouth twice dailylosartan (Cozaar) 25 mg tablet Take 1 tablet (25 mg) by mouth 2 times a day. 09/05/2021 10/18/2023 Discontinued (Dose adjustment)Start: 04-26-2018 End: 67-53-6104wgwz 1 tablet by mouth once dailyLosartan 25 mg tablet Discontinued 25 MG PO Daily April 26, 2018 1:00am October 17, 2024 2:00am magnesium oxide 250 mg oral tablet (20 sources)take 1 tablet by mouth in the morningmagnesium oxide (Mag-Ox) 250 MG tablet Take 250 mg by mouth in the morning. Activemontelukast 10 mg oral tablet (5 sources)Leukotriene Receptor AntagonistStart: 38-60-0763adhljmpwqez 10 mg Tab Refills(s) 0 Start Date: 12/02/24 Status: Ordered Repeat number: 1Start: 20-54-8390vtzg 1 tablet by mouth once dailyMultivitamin preparation (6 sources)Start: 15-76-9830wzxl 1 tablet by mouth once dailyMultivitamin Active 1 TAB PO Daily July 28, 2019 12:00amStart: 72-43-6881oilg 1 tablet by mouth once dailyMultivitamin Active 1 TAB PO Daily July 28, 2019 1:00amStart: 99-31-6254tdhp 1 tablet by mouth once dailymultivitamin (MULTIPLE VITAMINS ORAL) 1 tablet once daily. 08/24/2006 ActiveStart: 45-48-2806pbfb 1 tablet by mouth once dailymultivitamin (MULTIPLE VITAMINS ORAL) 1 tablet once daily. 0 08/24/2006 Activenitroglycerin 0.4 mg sublingual tablet (20 sources)Nitrate VasodilatorStart: 05-15-2024 End: 19-69-5990gicizrtsgxzjh (Nitrostat) 0.4 mg SL tablet Indications: Coronary artery disease involving mi'kmaq coronary artery of mi'kmaq heart without angina pectoris Place 1 tablet (0.4 mg) under the tongue every5 minutes if needed for chest pain. May repeat dose every 5 minutes for up to 3 doses total. 25 tablet 11 05/15/2024 ActiveComment on above:Dissolve under the tongue.omega-3 fatty acids-fish oil (One-Per-Day [place]-3) 684-1,200 mg capsule (4 sources)omega-3 fatty acids-fish oil (One-Per-Day [place]-3) 684-1,200 mg capsule Take as directed Activeomega-3 fatty acids-fish oil (One-Per-Day [place]- 3) 684-1,200 mg capsule Take as directed 0 Activeomeprazole 20 mg delayed release oral capsule (20 sources)Proton Pump InhibitorStart: 60-70-5492gewk 1 capsule by mouth once dailyomeprazole 20 mg Cap-DR 20 mg = 1 cap(s), Oral, Daily Start Date: 04/16/24 Status: Ordered Repeat number: 1Start: 04-26-2018 End: 73-27-2485algf 1 capsule by mouth once dailyStart: 81-39-4875ewns 20 mg by mouth once dailyOmeprazole Active 20 MG PO Daily April 26, 2018 12:00am oxybutynin chloride 5 mg oral tablet (1 source)Cholinergic Muscarinic AntagonistStart: 30-08-7354xfws 1 tablet by mouth twice dailyoxybutynin 5 mg Tab See Instructions, 1 tab(s) Oral bid after procedure, # 10 tab(s), Refills(s) 0,Pharmacy: [facility], 172, cm, 06/23/24 15:02:00 EST, Height/Length Dosing, 111.5, kg, 06/23/24 15:02:00 EST, Weight Dosing Start Date: 07/29/24 Status: Orderedphenylephrine hydrochloride 25 mg/ml ophthalmic solution (1 source)alpha-1 Adrenergic AgonistStart: 05-01-2022 End: 96-66-4808EVQCAEvwkmnae 2.5 % 1 Drop (AK-DILATE, ATIF-SYNEPHRINE) rosuvastatin 40 mg oral capsule (20 sources)HMG-CoA Reductase InhibitorStart: 38-15-8661iehs 40 mg by mouth once dailyrosuvastatin 40 mg, Oral, Daily Start Date: 04/16/24 Status: Ordered Repeat number: 1Start: 10-18-2023 End: 42-19-3548evch 1 tablet by mouth in the morningrosuvastatin (Crestor) 40 MG tablet Take 40 mg by mouth in the morning. 10/18/2023 ActiveStart: 07-28-2019 End: 56-47-5628wjqg 1 tablet by mouth once dailyRosuvastatin 20 mg tablet Discontinued 20 MG PO Daily July 28, 2019 1:00am October 17, 2024 2:00am sacubitril 24 mg / valsartan 26 mg oral tablet (4 sources)Angiotensin 2 Receptor BlockerStart: 40-37-1261ikrv 1 tablet by mouth twice dailysildenafil 100 mg oral tablet (20 sources)Phosphodiesterase 5 InhibitorStart: 07-28-2019 End: 97-58-7351fwywdznnkv (Viagra) 100 MG tablet Indications: Benign prostatic hyperplasia without urinary obstruction Take 1 tablet (100 mg) by mouth if needed for erectile dysfunction 10 tablet 2 11/05/2023 Activespironolactone 25 mg oral tablet (6 sources)Aldosterone AntagonistStart: 64-77-8313gevrdxlfpwnhcd 25 mg Tab 25 mg = 1 tab(s), Oral Start Date: 12/02/24 Status: Ordered Repeat number: 1Start: 10-24-2024 End: 28-06-9613tgwl 0.5 tablet by mouth once dailyspironolactone (Aldactone) 25 mg tablet Indications: Ischemic cardiomyopathy Take 0.5 tablets (12.5mg) by mouth once daily. 15 tablet 11 10/24/2024 10/24/2025 ActiveStart: 10-18-2024 End: 33-08-6770qzyq 1 tablet by mouth once dailyspironolactone (Aldactone) 25 mg tablet Take 1 tablet (25 mg) by mouth once daily. 10/24/2024 Discontinued (Dose adjustment)tamsulosin hydrochloride 0.4 mg oral capsule (20 sources)alpha-Adrenergic BlockerStart: 23-08-7865ngpv 1 capsule by mouth once dailytamsulosin (Flomax) 0.4 MG 24 hr capsule Indications: Benign prostatic hyperplasia without urinary obstruction Take 1 capsule (0.4 mg) by mouth Daily 90 capsule 3 03/24/2024 ActiveStart: 12-20-2023 End: 50-28-8885rtla 1 capsule by mouth once dailytamsulosin (Flomax) 0.4 MG 24 hr capsule Indications: Benign prostatic hyperplasia without urinary obstruction Take 1 capsule (0.4 mg) by mouth Daily 90 capsule 3 12/20/2023 03/22/2024 Discontinued (Reorder)Start: 59-54-8585qcdz 2 capsules by mouth once daily tamsulosin (Flomax) 0.4 mg 24 hr capsule Take 2 capsules (0.8 mg) by mouth once daily. 06/28/2020 ActiveStart: 04-26-2018 End: 37-87-8100kfai 2 capsules by mouth once dailytamsulosin 0.4 mg Cap 0.8 mg = 2 cap(s), Oral, Daily, X 30 day(s), # 60 cap(s), Refills(s) 11, Pharmacy: [facility], 172, cm, 04/16/24 9:51:00 EST, Height/Length Dosing, 108.1, kg, 249:51:00 EST, Weight Dosing Start Date: 04/16/24 Stop Date: 04/11/25 Status: Ordered Quantity: 60.0 Unit: cap(s) Repeat number: 12Start: 73-29-7872xkwu 0.4 mg by mouth once dailyTamsulosin Active 0.4 MG PO Daily April 26, 2018 12:00amtake 1 capsule by mouth every twenty-four hours in the morningtamsulosin (Flomax) 0.4 MG 24 hr capsule Take 0.4 mg by mouth in the morning. 0 Activetriamcinolone acetonide 1 mg/ml topical cream (20 sources)CorticosteroidStart: 07-02-2024 End: 49-33-8595idqfuqxyevfro (Kenalog) 0.1 % cream Indications: Rash Apply [...] mg/ml ophthalmic solution (1 source)AnticholinergicStart: 05-01-2022 End: 96-78-6718hjvekagglpf 1 % 1 Drop (MYDRIACYL)valsartan 40 mg oral tablet (1 source)Angiotensin 2 Receptor BlockerStart: 95-51-3778mtfvmtseo 40 mg Tab Refills(s) 0 Start Date: [...] oral tablet (9 sources)Macrolide AntimicrobialStart: 06-29-2024 End: 45-24-1223wfknptwprgsq (Zithromax) 250 MG tablet Take 250 mg by mouth See administration instructions 500 mg today, 250 mg x 4 days 06/29/2024 09/24/2024 Discontinued (Med list cleanup)Start: 30-13-6627yezegrerxkfn (Zithromax) 250 MG tablet Indications: Acute exacerbation of chronic obstructive pulmonary disease (CMS/HCC) Z-Pack. Take 2 tablets on day 1, and one tablet per day on days 2-5. 6 tablet0 06/30/2023 ActiveBudesonide-Formoterol (5 sources)Corticosteroid, beta2-Adrenergic AgonistStart: 07-28-2019 End: 22-11-5819jnzz 1 puff(s) by inhalation every twelve hoursBudesonide- Formoterol 160-4.5 mcg/actuation Hfa Aerosol Inhaler Discontinued 2 PUFF INHALATION [id number] 1:00am October 17, 2024 2:00amStart: 05-62-8729srpp 1 puff(s) by inhalation every twelve hoursBudesonide-Formoterol Active 2 PUFF INHALATION Q12H July 28, 2019 12:00amcholecalciferol 0.025 mg oral tablet (20 sources)Vitamin DStart: 07-28-2019 End: 89-53-4758fgea 1 tablet by mouth once dailyCholecalciferol (Vitamin D3) (Vitamin D3) 25 mcg (1,000 unit) Tablet Discontinued 1000 UNIT PO Daily July 28, 2019 1:00am October 17, 2024 2:00amtake 1 tablet by mouth in the morning cholecalciferol (Vitamin D-3) 50 MCG (1999 UT) tablet Take 50 mcg by mouth in the morning. Activedoxycycline hyclate 100 mg oral tablet (9 sources)Tetracycline-class DrugStart: 06-14-2023 End: 51-57-6122qapq 1 tablet by mouth twice dailyDoxycycline Hyclate 100 mg tablet Discontinued 100 MG PO Twice daily 03 01June 14, 2023 1:00amMa2024 2:00amStart: 15-99-3128zblkbiclzza hyclate (VIBRAMYCIN) 100 mg capsuleezetimibe 10 mg oral tablet (20 sources)Dietary Cholesterol Absorption InhibitorStart: 08-18-2019 End: 76-50-9451xpkb 1 tablet by mouth once dailyezetimibe (ZETIA) 10 mg tablet Take 1 tablet by mouth once daily. 0 08/18/2019 ActiveComment on above:Take 1 tablet by mouth once daily.hydroCHLOROthiazide 25 mg oral tablet (16 sources)Thiazide DiureticStart: 91-37-2188uhgldZRJDRJejwhwhvl (HYDRODIURIL, ESIDRIX) 25 mg tablet Take by mouth q 24 HR. 0 10/11/2020 ActiveStart: 04-26-2018 End: 02-51-7160nlrg 1 tablet by mouth once dailyHydrochlorothiazide 25 mg tablet Discontinued 25 MG PO Daily April 26, 2018 1:00am October 17, 2024 2:00am Comment on above:Take by mouth q 24 HR.ipratropium bromide 0.2 mg/ml inhalation solution (5 sources)AnticholinergicStart: 04-26-2018 End: 37-90-9200shhh 0.5 mg by inhalation every eight hoursIpratropium [place] 0.02 % solution Discontinued 0.5 MG INHALATION Q8H April 26, 2018 1:00am July 28, 2019 7:55amStart: 04-26-2018 End: 54-54-8053oxvl 0.5 mg by inhalation every eight hoursIpratropium [place] Discontinued 0.5 MG INHALATION Q8H April 26, 2018 12:00am July 27 0 6:55amlevoFLOXacin 750 mg oral tablet (6 sources)Quinolone AntimicrobialStart: 04-26-2018 End: 70-13-2665laup 1 tablet by mouth every twenty-four hoursLevofloxacin [...] DO ActiveMultivitamin Tablet (3 sources)Start: 07-28-2019 End: 03-23-7386xmrv 1 tablet by mouth once dailyMultivitamin Tablet Discontinued 1 TAB PO Daily July 28, 2019 1:00am October 17, 2024 2:00amnystatin 100 unt/mg topical powder (5 sources)Polyene AntifungalStart: 07-17-2024 End: 80-29-0923motqkred (Mycostatin) 870524 UNIT/GM powder Indications: Erythema intertrigo Apply to the affected area on groin area, once daily, 30 day supply 60 g 11 07/17/2024 09/24/2024 Discontinued (Med list cleanup)nystatin (Mycostatin) 100,000 unit/mL suspension 5 mL (500,000 Units) 4 times a day. ActiveOmega 3 CAPS (2 sources)[place] 3 CAPS TAKE DIRECTED. Quantity: 0 Refills: 0 Ordered: 05-Sep-2021 DO ActivepredniSONE 10 mg oral tablet (20 sources)Start: 10-17-2024 End: 16-48-4638Qdlmzdgkeo 10 mg tablet Discontinued MG October 17, 2024 12:00am October 17, 2024 2:01amStart: 06-29-2024 End: 08-75-5434fvcw 1 tablet by mouth once dailypredniSONE (Deltasone) [...] days24 tablet 0 06/30/2023 ActiveStart: 06-14-2023 End: 51-20-2207odos 2 tablets by mouth once dailyPrednisone 20 mg tablet Discontinued 40 MG PO Daily 10 June 14, 2023 1:00am October 17, 2024 2:00am Start: 93-22-5175kdnc 40 mg by mouth once dailyPrednisone Active 40 MG PO Daily 10 June 14, 2023 12:00amStart: 04-26-2018 End: 93-93-1372jwph 2 tablets by mouth once dailyPrednisone 20 mg tablet Discontinued 40 MG PO Daily 10 April 26, 2018 1:00am April 30, 2018 1:00am May 01, 2018 1:01amStart: 04-26-2018 End: 03-84-0228xefx 40 mg by mouth once dailyPrednisone Discontinued 40 MG PO Daily 10 April 26, 2018 12:00am May 01, 2018 12:01amStart: 09-19-2017 End: 63-83-6027ezeu 3 tablets by mouth once daily at mealtimePrednisone 20 mg tablet Discontinued 60 MG PO Daily 15 5 September 19, 2017 12:00am July 28, 2019 7:55am administer with food or milkStart: 09-19-2017 End: 62-94-2695fwpk 60 mg by mouth once daily at mealtimePrednisone Discontinued 60 MG PO Daily 15 September 18, 2017 11:00pm July 28, 2019 6:55am administer with food or milkvalACYclovir 1000 mg oral tablet (5 sources)Herpesvirus Nucleoside Analog DNA Polymerase Inhibitor, Herpes Simplex Virus Nucleoside Analog DNA Polymerase Inhibitor, Herpes Zoster Virus Nucleoside Analog DNA Polymerase InhibitorStart: 64-93-1212jjiq 1 tablet by mouth three times dailyvalACYclovir (VALTREX) 1 gram TAKE 1 TABLET BY MOUTH THREE TIMES A DAY FOR 7 DAYS 0 02/01/2022 ActiveComment on above:TAKE 1 TABLET BY MOUTH THREE TIMES A DAY FOR 7 DAYSvitamin b12 1 mg oral capsule (5 sources)Vitamin G17Mygrn: 07-28-2019 End: 38-94-0261kaqg 1 capsule by mouth once dailyCyanocobalamin (Vitamin B-12) 1,000 mcg Capsule Discontinued 1000 MCG PO Daily July 28, 2019 1:00am October 17, 2024 2:00amvitamin e 180 mg oral capsule (20 sources)Start: 09-04-2016 End: 82-97-6928wfuz 1 capsule by mouth once dailyVitamin E [...] sources)Patient encounter status; Translations: [Other specified counseling] 78-45-7632IajvjkltLeyifr (20 sources)Asthma; Translations: [Unspecified asthma, uncomplicated]Onset: 278108-24-9905MbuqajcMdixlaunk and vision defects (1 source)Bilateral hyperopia of eyes; Translations: [Hypermetropia, bilateral] EpisodicChronic obstructive pulmonary disease and bronchiectasis (20 sources)Acute exacerbation of chronic asthmatic bronchitis; Translations: [Chronic obstructive pulmonary disease with (acute) exacerbation]Onset: 530575-11-9446PqgcfhhOitnsfocxg heart failure; nonhypertensive (20 sources)Congestive heart failure; Translations: [Heart failure, unspecified] Onset: 914778-95-1573SdmbdalEpjjnvae atherosclerosis and other heart disease (20 sources)Coronary arteriosclerosis; Translations: [Coronary atherosclerosis of unspecified type of vessel, mi'kmaq or graft]Onset: ChronicCoronary atherosclerosis and other heart disease (5 sources)Presence of coronary angioplasty implant and graft; Translations: [Percutaneous transluminal coronary angioplasty status]Onset: 02-13-2023 83-40-1016LfgsaiojJowbbctki of lipid metabolism (20 sources)Hyperlipidemia; Translations: [Other and unspecified hyperlipidemia] Onset: 814060-57-4309FvydfmnLkwovgyofd disorders (20 sources)Gastroesophageal reflux disease; Translations: [Esophageal reflux] Onset: 091883-35-2095HqjmmuaHwhbypavb hypertension (20 sources)Essential hypertension; Translations: [Unspecified essential hypertension]Onset: 055467-03-6224QcnkmnrHwfoc and electrolyte disorders (2 sources)Hyponatremia; Translations: [Hypo-osmolality and hyponatremia] 46-78-6645RlmgvdevUnquunsleflxx symptoms and ill-defined conditions (8 sources)Retention of urine; Translations: [Retention of urine, unspecified] Onset: 14-82-5013YzmlfkeqZpwadshceme of prostate (20 sources)Benign prostatic hypertrophy without outflow obstruction; Translations: [Benign prostatic hyperplasia without lower urinary tract symptoms]Onset: 597009-20-3528XrxhovpLpwzerixhyxa conditions of male genital organs (6 sources)Chronic prostatitis; Translations: [Chronic prostatitis]Onset: 77-61-9963BtnewosOgbuxmz and fatigue (5 sources)Asthenia; Translations: [Weakness]17-97-2250MkzqnwvvXwfzw diseases of kidney and ureters (1 source)Urinary tract obstruction; Translations: [Other obstructive and reflux uropathy]Onset: 16-90-0044GstvlpccSdwor endocrine disorders (20 sources)Testicular hypofunction; Translations: [Testicular hypofunction] Onset: 384541-39-9811IdqkomsHsppi eye disorders (1 source)Tear film insufficiency; Translations: [Dry eye syndrome of bilateral lacrimal glands]EpisodicOther eye disorders (1 source)Paralytic strabismus; 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] EpisodicOther inflammatory condition of skin (2 sources)Intertrigo; Translations: [Erythema intertrigo]84-03-8138Yszsismq Other nervous system disorders (1 source)Segmental autonomic dysfunction; 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Other nervous system disorders (1 source)Myokymia of eyelid; Translations: [Facial myokymia]EpisodicOther nervous system disorders (3 sources)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; Translations: [Clonic hemifacial spasm, right]EpisodicOther nutritional; endocrine; and metabolic disorders (14 sources)Obesity; Translations: [Obesity, unspecified]Onset: 02-13-2023 07-90-8939FplhkyyRthyv nutritional; endocrine; and metabolic disorders (2 sources)Morbid obesity; Translations: [Morbid (severe) obesity due to excess calories]Onset: 764787-83-2070HljuprhQzlka nutritional; endocrine; and metabolic disorders (6 sources)Body mass index 30+ - obesity; Translations: [Body mass index (BMI) 36.0-36.9, adult]Onset: 582032-81-7123JxnnrooGdsdw nutritional; endocrine; and metabolic disorders (1 source)Obese class II; Translations: [Class 2 obesity]83-21-4389BolzfrvSssxn nutritional; endocrine; and metabolic disorders (2 sources)Obesity caused by energy imbalance; Translations: [Morbid (severe) obesity due to excess calories]50-86-7621JfjibnvTpvny nutritional; endocrine; and metabolic disorders (2 sources)Body mass index (BMI) 33.0-33.9, adult; Translations: [Body mass index (BMI) 33.0-33.9, adult]Onset: 24-00-9488NaefrmqZtupu nutritional; endocrine; and metabolic disorders (2 sources)Body mass index (BMI) 36.0-36.9, adult; Translations: [Body mass index (BMI) 36.0-36.9, adult]Onset: 99-57-0008UibqlsvVaewr skin disorders (4 sources)Skin lesion; Translations: [Disorder of the skin and subcutaneous tissue, unspecified]75-43-1815RbswqvfuIkakc skin disorders (2 sources)Eruption; Translations: [Rash and other nonspecific skin eruption] 25-90-5717LbgrrwvjNbjaq skin disorders (2 sources)Sebaceous cyst of skin; Translations: [Sebaceous cyst]07-02-2024 EpisodicOther skin disorders (2 sources)Epidermoid cyst; Translations: [Epidermal cyst]88-52-1403Fpjxaobg Other upper respiratory disease (2 sources)Nasal sinus problem; Translations: [Other specified disorders of nose and nasal sinuses]47-46-7655RwxcquthOnzzx upper respiratory infections (20 sources)Chronic sinusitis; Translations: [Chronic sinusitis, unspecified] Onset: 822960-56-8056IqidbfjQmqqzh media and related conditions (2 sources)Acute non-suppurative otitis media - serous; Translations: [Acute serous otitis media, right ear]31-08-8805HohrckivZpnfwylvp (except that caused by tuberculosis or sexually transmitted disease) (11 sources)Right middle zone pneumonia; Translations: [Pneumonia, unspecified organism]Onset: 184585-56-3942RihsowloTrfyzbrfnum failure; insufficiency; arrest (adult) (7 sources)Acute respiratory failure; Translations: [Acute respiratory failure with hypoxia]Onset: 673410-40-7603SppcxwhwFkqvvqtplb (except in labor) (2 sources)Sepsis; Translations: [Sepsis, unspecified organism]02-22-2024 EpisodicUnclassified (3 sources)A [facility] screening has identified you as FRAIL or [...] Four Ways to Beat the Frailty Risk [email or web address]/bkoz-puscij-vyca- vpks-ty-rktm-the-fra ktwt-wlhs64-55yhxv10-17-2849Cpcugzvegnqa (2 sources)Follow-up with CardiologyUnclassified (1 source)Call office on Sunday to schedule follow-up with your Primary Care Provider within 3-5 days of discharge. Past or Other Problems Problem ClassificationProblemDateDocumented DateEpisodic/ChronicDiabetes mellitus without complication (20 sources)Prediabetes; Translations: [Prediabetes]Onset: 226059-50-9294 EpisodicMood disorders (18 sources)Mood disordersOnset: Other nervous system disorders (1 source)Clonic hemifacial spasm, right; Translations: [Clonic hemifacial spasm, right]Onset: 94-36-4717VzsiydnnGnjny screening for suspected conditions (not mental disorders or infectious disease) (20 sources)History of adenomatous polyp of colon; Translations: [Encounter for screening for malignant neoplasm of colon]Onset: 583139-91-2715Pyeznfvo Other upper respiratory disease (20 sources)Polyp of nasal sinus; Translations: [Other polyp of sinus]Onset: 499651-69-8643ZdlyqtktVygddfzqs and history of mental health and substance abuse codes (20 sources)Ex-smoker; Translations: [Personal history of tobacco use]Onset: 830935-65-5504JuzbmnlgHxylvxb on above:QUIT IN 1984;Unclassified (20 sources)Onset: 03-23-2023 Resolved: 698290-72-2801Fgmcghfsuizb (2 sources)Sebaceous cyst of lqjn97-02-5406Nxasl infection (20 sources)Disease caused by 2019-nCoV; Translations: [COVID-19]Onset: 989969-44-2766Dbgpyozw Results Test NameValueInterpretationReference RangeFacilityOffice Visiton 03-16-2025 Follow-up [id number] Demarcus Calderon 1955 [facility] Provider Department Center 03/16/2025 CONRAD PATEL Family History Family Status - Relation Status Age at Mother Father Level of Service:76023 [place] OFFICE/OUTPATIENT ESTABLISHED MOD [facility] 57-38-6676Aohruw-up visit [id number] Demarcus Calderon 1955 M Date Provider Department Center 12/09/2024 CONRAD PATEL Family History Family Status - Relation Status Age at Mother Father Level of Service:96381 [place] OFFICE/OUTPATIENT NEW MODERATE MDM 45 [facility]24 Ambulatory Visit SummaryAmbulatory Visit Summary DEMARCUS CALDERON :1955 Visit Date:12/02/2024 Ambulatory Visit Instructions Your Diagnosis BPH with obstruction/lower urinary tract symptoms Urinary retention Elevated PSA Your Care Team Attending Physician - BENNY SHELLEY, John Hauesr Primary Care Physician - Sera Flower PA-C [...] AM EST With: Where: [facility] [address] [place] [address]- Sunday2025 9:45 AM EST With: John BAPTISTE MD Where: [facility] [address] 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 (more content not included)...[facility] HospitalUrology Office/Clinic Noteon 67-60-9137Ypmbdpg Office/Clinic Note Urology Office/Clinic Note Chief Complaint [...] Information BENNY SHELLEY, John Hauser, URL [address] [place] [address]- Additional Instructions: 6 mos w/ PSA and PVR Patient Education Benign Prostatic Hyperplasia Medina Munoz, personally scribed for Dr. Baptiste on 12/02/2024 08:25:31. . Documentation recorded by the Medina bundy acurately reflects the services(s) I performed anddecisions made by me. Authenticated by Dr. Baptiste on 12/02/2024 08:26:24. Portions of this record may have been created with voice recognition artificial intelligence software, specifically PipelineRx, Echo it and or PubMatic. Substitutions may have occurred due to the inherent limitations of voice recognition and artificial intelligence software. 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 Hypertension: Father. Im (more content not included)...[facility] HospitalComment on above:Result Comment: Electronically Signed By: John BAPTISTE MD\.br\Date and Time Signed: 12/02/24 08:27 EDT\.br\Electronically Co-Signed By: Medina Farley\.br\Date and Time Co-Signed: 12/02/24 08:25 EDTECH echo transthoracicon 53-54-4775LHZ echo transthoracicTOL[place] [address] Echocardiogram Signed Patient: Demarcus Calderon MR#: [id number] [id number] : 1955 Acct:[id number] Age/Sex: 69 / M ADM Date: 11/21/24 Loc: Room: Type: [facility] Attending Dr: Kiya Richmond APRN Ordering Provider: Kiya Richmond APRN Date of Service: 11/21/24/ ECH/ECH echo transthoracic: ISCHEMIC CARDIOMYOPATHY Copies to: WILLIAN Garcia MD BSA: 2.1 m2 BP: 127/80 mmHg HR: 74 Reason For Study: ISCHEMIC CARDIOMYOPATHY History: HTN, HLD, Former Smoker, [place], Stents, Emphysema, COVID Interpretation Summary Ejection Fraction [...] 0756 Signed By: Alex Gaston MD 11/21/24 1535[facility] Physician GroupBasic Metabolic Panelon 24-64-9825HWV/1.73 sq M.predicted MDRD (S/P/Bld) [Vol rate/Area]mL/min/{1.73_m2}NormalThe [facility] Comment on above:Performed By: #### BMP #### [place] [address] USACalcium [Mass/volume] in Serum or PlasmaOrdered By: Kiya Richmond on 68-00-1252Vstugxm [Mass/Vol]Calcium [Mass/volume] in Serum or Plasma 8.6-10.3FBerger HospitalCalcium [Mass/Vol]8.6 mg/dLNormal 8.6-10.3FBerger HospitalComment on above:Result Comment: PERFORMED BY: [place] [id number] PATHOLOGIST MEDICAL RECORD LIBRARIAN ERASMO SADLER M.D.Performed By: #### BMP #### [place] [address] USACarbon dioxide, total [Moles/volume] in Serum or Plasma Ordered By: Kiya Richmond on 08-01-3916XB0 [Moles/Vol]Carbon dioxide, total [Moles/volume] in Serum or Cenwsc36.0-31.0[facility] InstituteCO2 [Moles/Vol]25.4 mmol/NHpqlwa92.0-31.0[facility] InstituteComment on above:Performed By: #### BMP #### [place] [address] USAChloride [Moles/volume] in Serum or PlasmaOrdered By: Kiya Richmond on 41-31-6561Ypwtbvnn [Moles/Vol]Chloride [Moles/volume] in Serum or Krmwvt64-577FxuhypuifRiverview Health InstituteChloride [Moles/Vol]100 mmol/L Zipthq47-885Jvvbsqfab[address] [place], [place] [address]Comment on above:Performed By: #### BMP #### [place] [address] USACreatinine [Mass/volume] in Serum or PlasmaOrdered By: Kiya Richmond on 23-74-4889Yytadbdnzo [Mass/Vol]Creatinine [Mass/volume] in Serum or Plasma0.70-1.30[facility] InstituteCreatinine [Mass/Vol]0.97 mg/dLNormal0.70-1.30[facility] InstituteComment on above:Performed By: #### BMP #### [facility] [address] [place], [place] [address] USAGlucose [Mass/volume] in Serum or PlasmaOrdered By: Kiya Richmond on 15-62-5152Klnwrvk [Mass/Vol]Glucose [Mass/volume] in Serum or Plasma Bcdq69-061FnxnwceyvRiverview Health InstituteComment on above:ADA recommended reference rangeRandom Glucose Reference Range is dependent on time and content of last meal. Glucose of more than 200 mg/dL in a nonstressed, ambulatory subject supports the diagnosisof Diabetes Mellitus.Glucose [Mass/Vol]115 mg/dL Czcg85-134CwbryzmaaRiverview Health InstituteComment on above:ADA recommended reference rangeRandom Glucose Reference [...] recommended reference rangePerformed By: #### BMP #### [facility] [address] [place] [address] USANo Panel InformationOrdered By: Kiya Richmond on 10-31-2024 Estimated GFR (CKD-EPI)> 60.0 mL/MinRiverview Health InstitutePharmacy Creatinine Clearance (ChemN/[facility] CenterPotassium [Moles/volume] in Serum or PlasmaOrdered By: Kiya Richmond on 89-18-7870Mrcpbihlq [Moles/Vol]Potassium [Moles/volume] in Serum or Plasma3.5-5.1FBerger HospitalPotassium [Moles/Vol]4.0 mmol/LNormal3.5-5.1FBerger HospitalComment on above:Performed By: #### BMP #### [facility] [address] [place] [id number] USASerum or plasma anion gap determinationOrdered By: Kiya Richmond on 89-03-0859Usytx gap [Moles/Vol]Serum or plasma anion gap determination 6.0-15.0[facility] InstituteAnion gap [Moles/Vol]12.6 mmol/LNormal 6.0-15.0[facility] InstituteComment on above:Performed By: #### BMP #### [facility] [address] [place] [address] USASodium [Moles/volume] in Serum or PlasmaOrdered By: Kiya Richmond on 32-09-2441Aygtcx [Moles/Vol]Sodium [Moles/volume] in Serum or PlasmaLow 136-145Good Samaritan Hospitalodium [Moles/Vol]134 mmol/CJax172-774 [facility] InstituteComment on above:Performed By: #### BMP #### [facility] [address] [place] [address] USAUrea nitrogen [Mass/volume] in Serum or PlasmaOrdered By: Kiya Richmond on 29-93-2036Apcs nitrogen [Mass/Vol]Urea nitrogen [Mass/volume] in Serum or Plasma12-19[facility] InstituteUrea nitrogen [Mass/Vol]16 mg/dLNormal12-19[facility] InstituteComment on above:Performed By: #### BMP #### [facility] [address] [place] [address] USABasic Metabolic Panelon 71-33-8914Kgqvmyyaxj Clr Calc Xcjfolgx29.55NoOn license of [facility] Physician Alliance Health CenterComment on above:Performed By: #### MGBHAKTI, BMP #### [facility] [address] [place] [address] USAGFR/1.73 sq M.predicted MDRD (S/P/Bld) [Vol rate/Area] mL/min/{1.73_m2}NormalThe [facility] Physician Alliance Health CenterComment on above:Performed By: #### MGBHAKTI, BMP #### [facility] [address] [place] [address] USACalcium [Mass/volume] in Serum or PlasmaOrdered By: Vincenzo Caraballo on 99-57-8022Hjccdrk [Mass/Vol]Calcium [Mass/volume] in Serum or Plasma Low8.6-10.3FBerger HospitalCalcium [Mass/Vol]8.4 mg/dLLow 8.6-10.3FBerger HospitalComment on above:Performed By: #### MG CBCNO, BMP #### [facility] [address] [place] [address] USACarbon dioxide, total [Moles/volume] in Serum or Plasma Ordered By: Vincenzo Caraballo on 51-72-8701HF5 [Moles/Vol]Carbon dioxide, total [Moles/volume] in Serum or Sqctre93.0-31.0[facility] InstituteCO2 [Moles/Vol]22.4 mmol/JQdymut69.0-31.0[facility] InstituteComment on above:Performed By: #### BHAKTI KRISHNA BMP #### [facility] [address] [place] [address] USAChloride [Moles/volume] in Serum or PlasmaOrdered By: Vincenzo Caraballo on 82-78-8024Hawqmyxy [Moles/Vol]Chloride [Moles/volume] in Serum or Traime30-408FavpahhtaRiverview Health InstituteChloride [Moles/Vol]98 mmol/L Lfvdxw25-907Rhydzneco[address] [place], [place] [address]Comment on above:Performed By: #### BHAKTI KRISHNA, GIOVANNA #### [facility] [address] [place] [address] USACreatinine [Mass/volume] in Serum or PlasmaOrdered By: Vincenzo Caraballo on 73-77-0754Juislczctc [Mass/Vol]Creatinine [Mass/volume] in Serum or Plasma0.70-1.30[facility] InstituteCreatinine [Mass/Vol]0.76 mg/dLNormal0.70-1.30[facility] InstituteComment on above:Performed By: #### BHAKTI KRISHNA, BMP #### [facility] [address] [place] [address] USAErythrocyte distribution width Auto (RBC) [Ratio]Ordered By: Vincenzo Caraballo on 41-71-1153Uuzpoaguxtq distribution width (RBC) [Ratio] Erythrocyte distribution width [Ratio] by Automated zkohhPydp46.0-14.8[facility] Health InstituteErythrocyte distribution width [Ratio] by Automated count Ordered By: Vincenzo Caraballo on 40-69-6801Ksnhskkrjwj distribution width (RBC) [Ratio]15.8 %High12.0-14.8[facility] InstituteComment on above: Performed By: #### BHAKTI KRISHNA, BMP #### [facility] [address] [place] [address] USAErythrocytes [#/volume] in Blood by Automated countOrdered By: Vincenzo Caraballo on 08-85-8968YRL (Bld) [#/Vol]5.20 10*6/uLNormal3.90-5.60 [facility] InstituteComment on above:Performed By: #### BHAKTI KRISHNA BMP #### [facility] [address] [place] [address] USAGlucose [Mass/volume] in Serum or PlasmaOrdered By: Vincenzo Caraballo on 37-84-3713Njasegt [Mass/Vol]Glucose [Mass/volume] in Serum or Plasma [address]Comment on above:ADA recommended reference rangeRandom Glucose Reference Range is dependent on time and content of last meal. Glucose of more than 200 mg/dL in a nonstressed, ambulatory subject supports the diagnosisof Diabetes Mellitus.Glucose [Mass/Vol]124 mg/dL [address]Comment on above:ADA recommended reference rangeRandom Glucose [...] rangePerformed By: #### BHAKTI KRISHNA BMP #### [place] [address] USAHematocrit Auto (Bld) [Volume fraction]Ordered By: Vincenzo Caraballo on 88-91-0847Bgzrqkdxim (Bld) [Volume fraction]Hematocrit [Volume Fraction] of Blood by Automated count38.8-50.0[facility] Hematocrit [Volume Fraction] of Blood by Automated countOrdered By: Vincenzo Caraballo on 36-80-9793Ughcxnqgkk (Bld) [Volume fraction]43.5 %Buxfvl60.8-50.0[facility] InstituteComment on above:Performed By: #### BHAKTI KRISHNA BMP #### [facility] [address] [place] [address] USAHemoglobin [Mass/volume] in BloodOrdered By: Vincenzo Caraballo on 24-22-2594Bkslnjgigu (Bld) [Mass/Vol]Hemoglobin [Mass/volume] in Blood 13.0-17.0[facility] InstituteHemoglobin (Bld) [Mass/Vol]14.9 g/dL Vbkpui94.0-17.0[facility] InstituteComment on above:Performed By: #### MG, CBCNO, BMP #### [facility] [address] [place] [address] USAHemogram CBC Without Diffon 10-43-3461Rres Corpuscular HGB Conc34.2 g/lKAhtnpt58.5-35.6The [facility] Physician GroupComment on above: Performed By: #### MG, CBCNO, BMP #### [facility] [address] [place] [address] USAWBC (Bld) [#/Vol]11.5 10*3/uLHigh4.1-10.5The [facility] Physician GroupComment on above:Performed By: #### MG, CBCNO, BMP #### [facility] [address] [place] [address] USALeukocytes [#/volume] corrected for nucleated erythrocytes in Blood by Automated counOrdered By: Vincenzo Caraballo on 05-85-4630JSK corrected for nucl RBC Auto (Bld) [#/Vol]Leukocytes [#/volume] corrected for nucleated erythrocytes in Blood by Automated counHigh4.1-10.5FBerger HospitalWBC corrected for nucl RBC Auto (Bld) [#/Vol]11.5 10*3/uLHigh4.1-10.5 [facility] Auto (RBC) [Entitic mass]Ordered By: Vincenzo Caraballo on 12-76-9741VWG (RBC) [Entitic mass]MCH [Entitic mass] by Automated count27.5-35.2FFairfield Medical Center [Entitic mass] by Automated countOrdered By: Vincenzo Caraballo on 05-54-7518ZAL (RBC) [Entitic mass]28.7 pgNormal 27.5-35.2FBerger HospitalComment on above:Performed By: #### MG, CBCNO, BMP #### [facility] [address] [place] [address] USAHC Auto (RBC) [Mass/Vol]Ordered By: Vincenzo Caraballo on 71-52-3103BDDX (RBC) [Mass/Vol]MCHC [Mass/volume] by Automated count32.5-35.6 [facility] CenterHC (RBC) [Mass/Vol]34.2 g/dL32.5-35.6 [facility] InstituteMCV Auto (RBC) [Entitic vol]Ordered By: Vincenzo Caraballo on 11-81-5559YYI (RBC) [Entitic vol]MCV [Entitic volume] by Automated count83.5-101Riverview Health InstituteMCV [Entitic volume] by Automated countOrdered By: Vincenzo Caraballo on 50-14-1017MBL (RBC) [Entitic vol]83.8 fLNormal 83.5-[address] [place], [place] [address]Comment on above:Performed By: #### MG, CBCNO, BMP #### [facility] [address] [address] USAMagnesium [Mass/volume] in Serum or PlasmaOrdered By: Vincenzo Caraballo on 98-40-2291Agueftrpp [Mass/Vol]Magnesium [Mass/volume] in Serum or Plasma1.9-2.7FBerger HospitalMagnesium [Mass/Vol]2.3 mg/dL Normal1.9-2.7FBerger HospitalComment on above:Result Comment: PERFORMED BY: [address] [place] [address] PATHOLOGIST MEDICAL RECORD LIBRARIAN ERASMO SADLER M.D.Performed By: #### MG, CBCNO, BMP #### [facility] [address] [place] [address] USANo Panel InformationOrdered By: Vincenzo Caraballo on 10-18-2024 Estimated GFR (CKD-EPI)> 60.0 mL/MinRiverview Health InstitutePharmacy Creatinine Clearance (Chem96.55Riverview Health InstitutePlatelet mean volume Auto (Bld) [Entitic vol]Ordered By: Vincenzo Caraballo on 73-87-4283Egskwtvn mean volume (Bld) [Entitic vol]Platelet mean volume [Entitic volume] in Blood by Automated count6.6-10.1FBerger HospitalPlatelet mean volume [Entitic volume] in Blood by Automated countOrdered By: Vincenzo Caraballo on 98-19-7306Cfhhdnml mean volume (Bld) [Entitic vol]8.0 fLNormal6.6-10.1FBerger HospitalComment on above:Result Comment: PERFORMED BY: [place] [address] PATHOLOGIST MEDICAL RECORD LIBRARIAN ERASMO SADLER M.D.Performed By: #### BHAKTI KRISHNA BMP #### [place] [address] USAPlatelets Auto (Bld) [#/Vol]Ordered By: Vincenzo Caraballo on 22-97-1447Pghgkmart (Bld) [#/Vol]Platelets [#/volume] in Blood by Automated -202V[address] [place], [place] [address]Platelets [#/volume] in Blood by Automated countOrdered By: Vincenzo Caraballo on 45-06-8635Hmptlifxx (Bld) [#/Vol]194 10*3/rQLdqhxr626-962GtyrundidRiverview Health InstituteComment on above:Performed By: #### BHAKTI KRISHNA, BMP #### [facility] [address] [place] [address] USAPotassium [Moles/volume] in Serum or PlasmaOrdered By: Vincenzo Caraballo on 24-74-4679Zaagtcoaj [Moles/Vol]Potassium [Moles/volume] in Serum or Plasma3.5-5.1FBerger HospitalPotassium [Moles/Vol]4.0 mmol/LNormal3.5-5.1FBerger HospitalComment on above:Performed By: #### BHAKTI KRISHNA, BMP #### [facility] [address] [place] [address] USARBC Auto (Bld) [#/Vol]Ordered By: Vincenzo Caraballo on 99-89-6041XEO (Bld) [#/Vol]Erythrocytes [#/volume] in Blood by Automated count 3.90-5.60Good Samaritan Hospitalerum or plasma anion gap determinationOrdered By: Vincenzo Caraballo on 15-17-8557Ufwcz gap [Moles/Vol]Serum or plasma anion gap determination6.0-15.0R[facility] Health InstituteAnion gap [Moles/Vol]12.6 mmol/LNormal6.0-15.0R[facility] Health InstituteComment on above:Performed By: #### MG CBCNO, BMP #### [facility] [address] [place] [address] USASodium [Moles/volume] in Serum or PlasmaOrdered By: Vincenzo Caraballo on 39-73-5482Pwyzpp [Moles/Vol]Sodium [Moles/volume] in Serum or Plasma Xvw109-978IhprpyvciGood Samaritan Hospitalodium [Moles/Vol]129 mmol/LLow 136-145R[facility] Health InstituteComment on above:Performed By: #### MG CBCNO, BMP #### [facility] [address] [address] USAUrea nitrogen [Mass/volume] in Serum or PlasmaOrdered By: Vincenzo Caraballo on 03-95-2889Xgfj nitrogen [Mass/Vol]Urea nitrogen [Mass/volume] in Serum or Plasma7R[facility] Health InstituteUrea nitrogen [Mass/Vol]20 mg/dLNormal7-[facility] Health InstituteComment on above:Performed By: #### MG CBCNO, BMP #### [facility] [address] [place] [address] USABasic Metabolic Panelon 71-24-6347Cxmym gap [Moles/Vol] 13.3 mmol/LNormal6.0-15.0The [facility] Physician GroupComment on above:Performed By: #### BMP CBC, MG #### [facility] [address] [place] [address] USACalcium [Mass/Vol]8.8 mg/dLNormal8.6-10.3The [facility] Physician GroupComment on above:Performed By: #### BMP, CBC, MG #### [facility] [address] [place] [address] USAChloride [Moles/Vol]98 mmol/RLpmuid81-922Pco [facility] Physician GroupComment on above:Performed By: #### BMP, CBC, MG #### [facility] [address] [place] [address] USACO2 [Moles/Vol]27.2 mmol/YEmgaok65.0-31.0The [facility] Physician GroupComment on above:Performed By: #### BMP, CBC, MG #### [facility] [address] [place] [address] USACreatinine [Mass/Vol]0.89 mg/dLNormal0.70-1.30The [facility] Physician GroupComment on above:Performed By: #### BMP, CBC, MG #### [facility] [address] [place] [address] USACreatinine Clr Calc Hnybeasb56.13NormalThe [facility] Physician GroupComment on above:Performed By: #### BMP, CBC, MG #### [facility] [address] [place] [address] USAGFR/1.73 sq M.predicted MDRD (S/P/Bld) [Vol rate/Area] mL/min/{1.73_m2}NormalThe [facility] Physician GroupComment on above:Performed By: #### BMP, CBC, MG #### [place] [address] USAGlucose [Mass/Vol]131 mg/xLMcgx94-855Vab [facility] Physician GroupComment on above:Result Comment: Random Glucose Reference Range is dependent on time and content of last meal. Glucose of more than 200 mg/dL in a nonstressed, ambulatory subject supports the diagnosis of Diabetes Mellitus. ADA recommended reference rangePerformed By: #### BMP, CBC, MG #### [facility] [address] [place] [address] USAPotassium [Moles/Vol]4.5 mmol/LNormal3.5-5.1The [facility] Physician GroupComment on above:Result Comment: Hemolysis is present at a level that could interfere with the result. Contact lab if redraw is requiredPerformed By: #### BMP, CBC, MG #### [facility] [address] [place] [address] USASodium [Moles/Vol]134 mmol/UIzu183-385Wje [facility] Physician GroupComment on above:Performed By: #### BMP, CBC, MG #### [facility] [address] [place] [address] USAUrea nitrogen [Mass/Vol]22 mg/dLNormal7-25The [facility] Physician GroupComment on above:Performed By: #### BMP, CBC, MG #### [place] [address] USABasophils Auto (Bld) [#/Vol]Ordered By: Tootie Richmond on 76-29-7360Ehojlcycp (Bld) [#/Vol]Automated basophil count0.0-0.2FBerger HospitalBasophils [#/volume] in Blood by Automated countOrdered By: Tootie Richmond on 40-93-6137Udlhzsgfc (Bld) [#/Vol]0.0 10*3/uLNormal0.0-0.2 [facility] InstituteComment on above:Result Comment: PERFORMED BY: [place] [address] PATHOLOGIST MEDICAL RECORD LIBRARIAN FIORELLA BRIAN M.D.Performed By: #### BMP, CBC, MG #### [place] [address] USABasophils/100 WBC Auto (Bld)Ordered By: Tootie Richmond on 25-24-9389Lybrxmfbh/100 WBC (Bld)Automated basophil %.[facility] InstituteBasophils/100 leukocytes in Blood by Automated countOrdered By: Tootie Richmond on 64-09-5845Viorzihkq/100 WBC (Bld)0.2 %Normal.[facility] Health InstituteComment on above:Performed By: #### BMP, CBC, MG #### [place] [address] USACapillary blood glucose measurement by glucometer (mass/volume)Ordered By: Vincenzo Caraballo on 59-59-3580Ltcxton [Mass/Vol]144 mg/dL NormalRiverview Health InstituteComment on above:Random Glucose Reference Range is dependent [...] Care testing ,Complete Blood Count Auto Diffon 40-49-8934Rwgqvqqeste distribution width (RBC) [Ratio]15.5 %High12.0-14.8The [facility] Physician GroupComment on above: Performed By: #### BMP, CBC, MG #### [place] [address] USAHematocrit (Bld) [Volume fraction]44.7 %Vctufh49.8-50.0The [facility] Physician GroupComment on above:Performed By: #### BMP, CBC, MG #### [facility] [address] [place] [address] USAHemoglobin (Bld) [Mass/Vol]15.2 g/dVLnnixm13.0-17.0The [facility] Physician GroupComment on above:Performed By: #### BMP, CBC, MG #### [place] [address] USAMCH (RBC) [Entitic mass]28.5 glBskmfd79.5-35.2The [facility] Physician GroupComment on above:Performed By: #### BMP, CBC, MG #### [facility] [address] [address] USAMCV (RBC) [Entitic vol]84.2 bLQdtnrc49.5-101The [facility] Physician GroupComment on above:Performed By: #### BMP, CBC, MG #### [facility] [address] [place] [address] USAMean Corpuscular HGB Conc33.9 g/gWSlazje93.5-35.6The [facility] Physician GroupComment on above:Performed By: #### BMP, CBC, MG #### [facility] [address] [place] [address] USANRBC%0.1 /100{WBC}Normal0-0.5The [facility] Physician Group Comment on above:Performed By: #### BMP, CBC, MG #### [facility] [address] [place] [address] USAPlatelet mean volume (Bld) [Entitic vol]8.1 fLNormal 6.6-10.1The [facility] Physician GroupComment on above:Performed By: #### BMP, CBC, MG #### [place] [address] USAPlatelets (Bld) [#/Vol]211 10*3/xUZumszf490-448Yly [facility] Physician GroupComment on above:Performed By: #### BMP, CBC, MG #### [place] [address] USARBC (Bld) [#/Vol]5.31 10*6/uLNormal3.90-5.60The [facility] Physician GroupComment on above:Performed By: #### BMP, CBC, MG #### [place] [address] USAEosinophils Auto (Bld) [#/Vol]Ordered By: Tootie Richmond on 53-32-4462Rgxivluychg (Bld) [#/Vol]Automated eosinophil count0.0-0.45R[facility] Health InstituteEosinophils [#/volume] in Blood by Automated countOrdered By: Tootie Richmond on 86-47-9371Hdxxunmskbl (Bld) [#/Vol]0.3 10*3/uLNormal0.0-0.45 [facility] InstituteComment on above:Performed By: #### BMP, CBC, MG #### [facility] [address] [place] [address] USAEosinophils/100 WBC Auto (Bld)Ordered By: Tootie Richmond on 39-47-5322Ukcldlfkegl/100 WBC (Bld)Automated eosinophil %.[facility] Health InstituteEosinophils/100 leukocytes in Blood by Automated countOrdered By: Tootie Richmond on 54-54-8113Ifbegzymbpd/100 WBC (Bld)1.8 %Normal.[facility] Health InstituteComment on above:Performed By: #### BMP, CBC, MG #### [facility] [address] [place] [address] USAGlucose Glucometer (BldC) [Mass/Vol]Ordered By: Vincenzo Caraballo on 43-20-0382Izvpkkw [Mass/Vol]Capillary blood glucose measurement by glucometer (mass/volume)[facility] Health InstituteComment on above:Random Glucose Reference Range is dependent on time and content of last meal. Glucose of more than 200 mg/dL in a nonstressed, ambulatory subject supports the diagnosis of Diabetes Mellitus.Glucose Poct Glucometerson 48-58-2296Bxbwckn4 Glu2: Cleaned [facility] EastNormJupiter Medical Center Physician GroupComment on above:Result Comment: PERFORMED BY: [facility] [address] [facility] [place] [address] PATHOLOGIST MEDICAL RECORD LIBRARIAN FIORELLA BRIAN M.D.Performed By: #### GLULS #### Point of Care testing ,Leukocytes [#/volume] in Blood by Automated countOrdered By: Tootie Richmond on 35-00-0892MNK (Bld) [#/Vol]14.6 10*3/uLHigh4.1-10.5FBerger HospitalComment on above:Performed By: #### BMP, CBC, MG #### [facility] [address] [place] [address] USALymphocytes Auto (Bld) [#/Vol]Ordered By: Tootie Richmond on 53-09-3067Rkbaoehmxif (Bld) [#/Vol]Lymphocytes [#/volume] in Blood by Automated count1.00-4.8R[facility] Health InstituteLymphocytes [#/volume] in Blood by Automated countOrdered By: Tootie Richmond on 07-48-8913Umkclqyruaz (Bld) [#/Vol] 2.4 10*3/uLNormal1.00-4.8R[facility] Health InstituteComment on above: Performed By: #### BMP, CBC, MG #### [address] [address] USALymphocytes/100 WBC Auto (Bld)Ordered By: Tootie Richmond on 56-21-4603Tjnhgbgkkfx/100 WBC (Bld)Lymphocytes/100 leukocytes in Blood by Automated count.[facility] Health InstituteLymphocytes/100 leukocytes in Blood by Automated countOrdered By: Tootie Richmond on 56-65-0844Ucjkqsevfng/100 WBC (Bld)16.3 %Normal.[facility] Health InstituteComment on above:Performed By: #### BMP, CBC, MG #### [place] [address] USAMagnesiumon 15-69-4477Yidrkhorq [Mass/Vol]2.2 mg/dLNormal 1.9-2.7The [facility] Physician GroupComment on above:Result Comment: PERFORMED BY: [place] [address] PATHOLOGIST MEDICAL RECORD LIBRARIAN FIORELLA BRIAN M.D.Performed By: #### BMP, CBC, MG #### [place] [address] USAMonocytes Auto (Bld) [#/Vol]Ordered By: Tootei Richmond on 48-70-7383Bkdwgyebw (Bld) [#/Vol]Automated blood monocyte countHigh0.0-0.8 [facility] InstituteMonocytes [#/volume] in Blood by Automated countOrdered By: Tootie Richmond on 98-53-1506Vjpzhffrr (Bld) [#/Vol]1.1 10*3/uLHigh 0.0-0.8[facility] InstituteComment on above:Performed By: #### BMP, CBC, MG #### [address] [address] USAMonocytes/100 WBC Auto (Bld)Ordered By: Tootie Richmond on 29-97-1397Llqqglkni/100 WBC (Bld)Automated monocyte %.[facility] InstituteMonocytes/100 leukocytes in Blood by Automated countOrdered By: Tootie Richmond on 76-77-9620Xgngjrzre/100 WBC (Bld)7.2 %Normal.[facility] InstituteComment on above:Performed By: #### BMP, CBC, MG #### [facility] [address] [place] [address] USANeutrophils Auto (Bld) [#/Vol]Ordered By: Tootie Richmond on 99-97-1937Bveeddirswq (Bld) [#/Vol]Neutrophils [#/volume] in Blood by Automated countHigh1.8-7.7FBerger HospitalNeutrophils [#/volume] in Blood by Automated countOrdered By: Tootie Richmond on 23-02-1753Adhhjfcolto (Bld) [#/Vol]10.9 10*3/uLHigh1.8-7.7FBerger HospitalComment on above: Performed By: #### BMP, CBC, MG #### [facility] [address] [place] [address] USANeutrophils/100 WBC Auto (Bld)Ordered By: Tootie Richmond on 82-95-0818Xvjnyrxhkji/100 WBC (Bld)Automated neutrophil %.[facility] InstituteNeutrophils/100 leukocytes in Blood by Automated countOrdered By: Tootie Richmond on 40-29-6149Qpczzwbroxa/100 WBC (Bld)74.5 %Normal.[facility] InstituteComment on above:Performed By: #### BMP, CBC, MG #### [facility] [address] [place] [address] USANo Panel InformationOrdered By: Vincenzo Caraballo on 10-17-2024 Bedside Glucose CommentGlu2: cleaned [facility] Nucleated erythrocytes [Presence] in Blood by Automated countOrdered By: Tootie Richmond on 52-88-1742Mafapzeng RBC Auto Ql (Bld)Nucleated erythrocytes [Presence] in Blood by Automated count0-0.5FBerger HospitalNucleated RBC Auto Ql (Bld)0.1 /100{WBC}0-0.5FBerger HospitalTroponin I High Sensitivityon 75-92-0260Mfjxpwqj I High Mgxkegudasj84Egyjdy5-01Hzh [facility] Physician GroupComment on above:Result Comment: The Troponin units of report have been changed to meet the Chest Pain Accreditation requirement, element EC5.M1l2. Troponin units are changed from pg/ml to ng/L. Also, the decimal is removed and results are in whole numbers. PERFORMED BY: [facility] [address] [place] [id number] PATHOLOGIST MEDICAL RECORD LIBRARIAN ERASMO SADLER M.D.Performed By: #### HS TROP #### [place] [address] USATroponin I.cardiac [Mass/volume] in Serum or Plasma by Detection limit <= 0.01 ng/Ordered By: Keila Davis on 68-00-8300Zewohwjn I.cardiac DL <= 0.01 ng/mL [Mass/Vol]Troponin I.cardiac [Mass/volume] in Serum or Plasma by Detection limit <= 0.01 ng/0-[facility] InstituteComment on above:The Troponin units of report have been changed to meet the Chest Pain Accreditation requirement, element EC5.M1l2. Troponin units are changed from pg/ml to ng/L. Also, the decimal is removed and results are in whole numbers. Troponin I.cardiac [Mass/volume] in Serum or Plasma by Detection limit <= 0.01 ng/mLOrdered By: Keila Davis on 81-47-2506Dllunlpf I.cardiac DL <= 0.01 ng/mL [Mass/Vol]14 ng/L0-[facility] Health InstituteComment on above:The Troponin units of report have been changed to meet the Chest Pain Accreditation requirement, element EC5.M1l2. Troponin units are changed from pg/ml to ng/L. Also, the decimal is removed and results are in whole numbers.WBC Auto (Bld) [#/Vol]Ordered By: Tootie Richmond on 63-01-5868ORM (Bld) [#/Vol]Leukocytes [#/volume] in Blood by Automated countHigh4.1-10.5FBerger HospitalX-ray reportOrdered By: Miguel Trejo on 50-35-3663Nhwtz reportFIRUNIVERSITY HOSPITALS HEALTH SYSTEM Main [place] [address] [place] [address] XRay Report Signed Patient: Demarcus Calderon MR#: [id number] : 1955 Acct:[id number] Age/Sex: 69 / M ADM Date: 5 Loc: 4P Room: [address] [place] [address] Type: ADM IN Attending Dr: Vincenzo Caraballo [...] Trejo M.D. 10/17/2024 9:46 AM Dictation Location: [place] [address] Transcribed By: CHARITY 10/17/24945 Dictated By: Miguel Trejo MD 10/17/2445 Signed By: 10/17/24 0946 [facility] Work Phone: XR chest 2V*on 59-74-0812DW chest 2V*[facility] Main [address] [address] XRay Report Signed Patient: Demarcus Calderon MR#: [id number] : 1955 Acct:[id number] Age/Sex: 69 / M ADM Date: 10/16/24 Loc: 4P Room: [address] [place] [address] Type: ADM IN Attending Dr: Vincenzo Caraballo [...] Trejo M.D. 10/17/2024 9:46 AM Dictation Location: [place] [address] Transcribed By: [place] 10/17/24 0946 Dictated By: Miguel Trejo MD 10/17/24 0945 Signed By: 10/17/24 0946[facility] Physician GroupAmbulatory Visit Summaryon 42-95-4583Lwmbuxdqex Visit SummaryAmbulatory Visit Summary KVNG DEMARCUS Jose [...] John BAPTISTE MD Where: [facility] [address] 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 ??? An exam (more content not included)...[facility] HospitalUrology Office/Clinic Noteon 68-96-9709Rgeonyl Office/Clinic NoteUrology Office/Clinic Note Chief Complaint F/u [...] MD, URL [address] [place] [id number]- Additional Instructions: 6-8 wks with PVR Patient Education Benign Prostatic Hyperplasia I, Dayanara Murrell, personally scribed for Dr. Baptiste on 08/26/2024 08:41:13. . Portions of this record may have been created with voice recognition artificial intelligence software, specifically PipelineRx, Echo it and or PubMatic. Substitutions may have occurred due to the inherent limitations of voice recognition and artificial intelligence software. 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 ??? 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 Elevated PSA GERD [...] Status influenza virus vac (more content not included)...[facility] HospitalComment on above:Result Comment: Electronically Signed By: JOSEPH Peralta APRN, Yasemin Skelton\.br\Date and Time Signed: 08/18/24 16:08 EDT\.br\Electronically Co-Signed By: Shree Stallworth\.br\Date and Time Co-Signed: 08/18/24 15:06 EDT Ambulatory Visit Summaryon 88-11-0867Yvbihvduax Visit SummaryAmbulatory Visit Summary DEMARCUS CALDERON :1955 Visit Date:08/15/2024 Ambulatory Visit Instructions Your Care Team Attending Physician - John BAPTISTE MD Primary Care Physician - Sera Flower PA-C Referring Physician - John BAPTISTE MD This Is Your Medications List acetaminophen-hydrocodone (Dupont 325 mg-5 mg oral tablet) acetaminophen-tramadol (Ultracet [...] What How Much When Instructions Unchanged acetaminophen-hydrocodone (Dupont 325 mg-5 mg oral tablet) See instructions [...] congestive heart failure 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 Please share your experience with us by completing your survey. We appreciate your feedback and thank you for choosing us for your care. [facility] HospitalInpatient Patient Summaryon 48-55-1916Muvqxcvgv Patient SummaryInpatient Patient Summary [address] [address] Clinical Summary Person Information Name: DEMARCUS CALDERNO Age: 69 Years : 1955 Sex: Male PCP: Sera Flower PA-C Marital Status: Race: White Ethnicity: Non- or Language: Maltese Visit Id: Visit Reason: BPH WITH LUTS Speciality: Acuity: Enc Type: Outpatient Med Service: Surgery Arrival: 08/08/2024 12:42:16 Discharge: Dispo Type: Address: [address] [place] [id number] Provider Notes: Diagnosis: Other obstructive and reflux uropathy Problems Active BPH with obstruction/lower urinary tract symptoms Chronic prostatitis Urinary retention Elevated PSA Chronic systolic congestive heart failure 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 Stay on the Flomax for now. Some discharge instructions have been provided. If the bleeding gets severe, or the catheter is clogging from blood clots, you need to go to the ERfor irrigation. Will make a one week appt. to remove the catheter. Type Location Start Finish [facility] Urology CALL [facility] Surgical Services 08/13/2024 12:00 PM 08/13/2024 12:30 PM Confirmed Patient Education Information: EU - Urolift Discharge Instructions (Custom)[facility] Main OR Intraoperative Recordon 36-73-7990Mehc OR Intraoperative RecordMain OR Intraoperative Record IntraOp Document Type FTURO Summary Primary Physician: John BAPTISTE MD Finalized Date/Time: 08/08/24 14:01:11 Pt. Name: DEMARCUS CALDERON/Sex: 1955 Male Med Rec #: [id number] Physician: John BAPTISTE MD Financial #: [id number] Pt. Type: O Room/Bed: / Admit/Disch: 08/08/24 [...] Dian Jackman Role Performed Surgeon - Primary Licensed Journeyman Electrician - Primary Scrub - Primary Time In [...] CARTRIDGE CARTRIDGE CARTRIDGE Serial Number Lot Number [id number] Theatrical Scenic Designer NEOTRACT NEOTRACT NEOTRACT Catalog ???# [id number] [id number] [id number] Size Expiration Date 08/19/25 08/19/25 01/22/26 Usage [...] equipment (including patient problems (more content not included)...[facility] Preoperative Recordon 86-20-1947Ntpa OR Preoperative RecordMain OR Preoperative Record Holding Area Document Type FTURO Summary Primary Physician: John BAPTISTE MD Finalized Date/Time: 08/08/24 13:16:05 Pt. Name: KVNGDEMARCUS/Sex: 1955 Male Med Rec #: [id number] Physician: John BAPTISTE MD Financial #: [id number] Pt. Type: O Room/Bed: / Admit/Disch: 08/08/24 [...] No Pain Comment: N/A Skin Integrity Intact, [place], Warm, & Dry Vitals - EU Blood Pressure 146/74 Pulse 58 bpm Respirations 18 br/min SPO2 95 % Additional None Specimens Comment N/A Specimens Collected Residual Amount - 0 RN Reviewed Yes Post Void Last Modified By: Bonny Brenner 08/08/24 13:15:24 Finalized By: Bonny Brenner Document Signatures Signed By: Bonny Brenner 08/08/24 13:15 Bonny Brenner 08/08/24 13:16NoTriHealth Bethesda Butler HospitalOperative Reporton 82-15-3799Pxsvjrdgv ReportOperative Report Patient: DEMARCUS CALDERON Age: 69 years Sex: Male : 1955 Associated Diagnoses: None Author: John BAPTISTE MD Procedure Operative Information Details: Date/ Time: 08/08/2024 13:41:00. Pre-Op Dx: Acute urinary retention (EZT12-ZJ R33.8, Working, Medical), BPH with obstruction/lower urinary tract symptoms (KUH96-VL N40.1, Working, Medical). Post-Op Dx: Same. Anesthesia [...] procedure (10 mg diazepam, 5/325 mg of Dupont), Local Anesthesia (60cc 2% Xylocaine liquid inserted [...] gets more persistent/severe. He agrees with the plan.[facility] HospitalComment on above:Result Comment: Electronically Signed By: John BAPTISTE MD\Date and Time Signed: 08/08/24 13:51 EDTOutpatient Surgery Discharge Instructionon 29-99-1674Chlgnloqof Surgery Discharge InstructionOutpatient Surgery Discharge Instruction [address] [address] Patient Discharge Instructions PERSON INFORMATION [...] Follow up: With: Address: When: John BAPTISTE [address] [place] [address], [address], [address] [address] Business (1) Comments: Push the fluids to keep the urine clear. Stay on the Flomax for now. Some discharge instructions have been provided. If the bleeding gets severe, or the catheter is clogging from blood clots, you need to go to the ERfor irrigation. Will make a one week appt. to remove the catheter. Type Location Start [facility] Urology CALL PAT FT [facility] Urology Surgical Services 08/13/2024 12:00 PM [...] follow up call? Yes (more content not included)...[facility] HospitalU[facility] Office/Clinic Noteon 09-92-0326Polzoti Office/Clinic NoteUrology Office/Clinic Note Chief Complaint Cysto [...] Contact Information John BAPTISTE MD, URL [address] [address]- Additional Instructions: schedule Urolift Patient Education Prostatic Urethral Lift I, Dayanara Murrell, personally scribed for Dr. Baptiste on 06/23/2024 15:40:59. . Documentation recorded by the scribeDayanara, accurately reflects the services(s) I performed and decisions made by me. Authenticated by Dr. Baptiste on 06/23/2024 15:42:23. Portions of this record may have been created with voice recognition artificial intelligence software, specif (more content not included)...[facility] HospitalComment on above:Result Comment: Electronically Signed By: John BAPTISTE MD\.br\Date and Time Signed: 06/23/24 15:44 EST\.br\Electronically Co-Signed By: Dayanara Murrell\.br\Date and Time Co-Signed: 06/23/24 15:41 EST Urology Office/Clinic Noteon 50-35-3447Haqncid Office/Clinic NoteUrology Office/Clinic Note Chief Complaint 2 [...] Contact Information ADRIÁN DELACRUZ, SU Es[address]ivel, URL [address] 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 Elevated PSA GERD [...] Protein Urine Dipstick: Negative (04/28/24 12:04:00) Specific [place] Urine Dipstick: 1.020 (04/28/24 12:04:00) Urine Appearance Urine Dipstick: Clear (04/28/24 12:04:00) Urine Color Urine Dipstick: Yellow (04/28/24 12:04:00) Urobilinogen Urine Dipstick: Normal 0.2-1 EU/dl (04/28/24 12:04:00) pH Urine Dipstick: 6.5 (04/28/24 12:04:00)NormalNovant Health Franklin Medical Centerer [facility] Comment on above:Result Comment: Electronically Signed By: SU COOK PA-C\.br\Date and Time Signed: 04/28/2413:37 EST\.br\Electronically Co-Signed By: Shree Stallworth\.br\Date and Time Co-Signed: 04/28/24 12:30 ESTCHEMISTRYOrdered By: SYSTEM SYSTEM on 56-00-5091Bftmyhse specific Ag [Mass/Vol]2.3 ng/mLNormal0.1 - 3.5 ng/mLRemisol ChemComment on above:Interpretive Data: The concentration of PSA determined by different manufacturers can vary due to differences in assay methods and reagent specificity. Values obtained from different assay methods cannot be used interchangeably. The methodology used for this result was chemiluminescence using [employer]'s Access Hybritech PSA reagent.PSA Total on 65-33-5212Mknijnuz specific Ag [Mass/Vol]2.3 ng/mLNormal0.1-3.5Fisher [facility] CenterComment on above:Result Comment: The concentration of PSA determined by different manufacturers can vary due to differences in assay methods and reagent specificity. Values obtained from different assay methods cannot be used interchangeably. The methodology used for this result was chemiluminescence using Mynor Haider's Access Hybritech PSA reagent.Performed By: #### [id number] #### [facility] [address], [place] [address]Rm Panel Informationon 72-88-8868KNDTXPRKTHTNU HealthcareWHITE BLOOD CELLSon 96-73-7404MPLOO BLOOD CELLS White Blood Cells NOMS HealthcareMENOKEN BLOOD CELLSNone [facility] HealthcareCT Cheston 86-70-4618Wqw[address] [address] [address] Scan Report Signed Patient: DEMARCUS CALDERON MR#: [id number] : 1955 Acct:[id number] Age/Sex: 69 / M ADM Date: 01/17/24 Loc: CT Attending Dr: Chalino Phoenix D.O. Ordering Physician: Chalino Phoenix D.O. Date of Service: 01/17/24 Procedure(s): CT chest high res Accession Number(s): [id number] cc: SERA FLOWER [address] [address] Patient Name: DEMARCUS CALDERON MRN: [facility]:[id number] date: 1955 Sex: M Assigned Patient Location: CT Current Patient Location: Accession/Order Number: [id number] Exam Date: 01/17/2024 07:55 Report Date: 01/18/2024 [...] Signed By: 01/18/24 06 DD/ 0557 TD/TT: Receiving Inspector:TBHRadiology, Radiologist, MD - 01/18/[address] [address] [address] Scan Report Signed Patient: DEMARCUS CALDERON MR#: [id number] : 1955 Acct:[id number] Age/Sex: 69 / M ADM Date: 01/17/24 Loc: CT Attending Dr: Chalino Phoenix D.O. Ordering Physician: Chalino Phoenix D.O. Date of Service: 01/17/24 Procedure(s): CT chest high res Accession Number(s): [id number] cc: SERA FLOWER [address] [address] Patient Name: DEMARCUS CALDERON MRN: [id number] date: 1955 Sex: M Assigned Patient Location: CT Current Patient Location: Accession/Order Number: [id number] Exam Date: 01/17/2024 07:55 Report Date: 01/18/2024 [...] Signed By: 01/18/24 0600 DD/ 0557 TD/TT: Receiving Inspector: GITA HealthcareRadiology Study observation (narrative)[facility]'sNo Panel InformationOrdered By: Radiologist Radiology on 40-11-0436AWBQ [employer] Work Phone: rt PULMONARY FUNCTION TESTon 87-96-2193[place] [address] Respiratory Report Signed Patient: DEMARCUS CALDERON MR#: [id number] : 1955 Acct:[id number] Age/Sex: 69 / M ADM Date: 01/17/24 Loc: CT Attending Dr: Chalino Phoenix D.O. Ordering Physician: Chalino Phoenix D.O. Date of Service: 01/17/24 Procedure(s): RT pulmonary function test Accession Number(s): [id number] cc: [facility] Test Date: 2024-01-17 Pat Name: DEMARCUS CALDERON Department: Room: - Gender: Male Sfdc Solution Architect: Dennis Francisco RRT : 1955 Requested By: Chalino Phoenix Order Number: [id number] Reading MD: Chalino Phoenix Interpretive Statements Pulmonary [...] D.O. Signed By: 01/18/24807 DD/ 7 TD/TT: Receiving Inspector:TBHRadiology, Radiologist, - 01/18/2024 [place] [address] Respiratory Report Signed Patient: DEMARCUS CALDERON MR#: [id number] : 1955 Acct:[id number] Age/Sex: 69 / M ADM Date: 01/17/24 Loc: CT Attending Dr: Chalino Phoenix D.O. Ordering Physician: Chalino Phoenix D.O. Date of Service: 01/17/24 Procedure(s): RT pulmonary function test Accession Number(s): [id number] cc: [facility] Test Date: 2024-01-17 Pat Name: DEMARCUS CALDERON Department: Room: - Gender: Male Sfdc Solution Architect: Dennis Francisco RRT : 1955 Requested By: Chalino Phoenix Order Number: [id number] Reading MD: Chalino Phoenix Interpretive Statements Pulmonary [...] D.O. Signed By: 01/18/24807 DD/ 7 TD/TT: Receiving Inspector: GITA Townsend PULMONARY FUNCTION TESTon 38-26-1144Yxuwoeqpu Study observation (narrative)GITA BucknerActivated partial thromboplastin time (aPTT) in platelet poor plasma by coagulation aOrdered By: Jasper Martinez on 83-89-1470kMUJ Coag (PPP) [Time]30.2 s25.1-36.5FBerger Hospital Comment on above:A hematocrit value greater than 55% may lead to inaccurate results in coagulation testing. Patientshaving hematocrit values >55% require a special collection tube for coagulation studies. Please contact the laboratory at [phone] for redraw instructions.Alanine aminotransferase [Enzymatic activity/volume] in Serum or PlasmaOrdered By: Jasper Martinez on 06-14-2023 ALT [Catalytic activity/Vol]37 U/L7-52[facility] InstituteAlbumin [Mass/volume] in Serum or Plasma by Bromocresol green (BCG) dye binding metho Ordered By: Jasper Martinez on 05-31-1805Wgtzxfo BCG dye [Mass/Vol]4.1 g/dL 3.5-5.7FBerger HospitalAlkaline phosphatase [Enzymatic activity/volume] in Serum or PlasmaOrdered By: Jasper Martinez on 06-14-2023 ALP [Catalytic activity/Vol]59 U/N79-707MqnilmwypRiverview Health Institute Aspartate aminotransferase [Enzymatic activity/volume] in Serum or PlasmaOrdered By: Jasper Martinez on 85-06-7560XXP [Catalytic activity/Vol]29 U/L13-39 [facility] InstituteBasophils Auto (Bld) [#/Vol]Ordered By: Jasper Martinez on 81-97-7971Jjbyhuquv (Bld) [#/Vol]0.0 10*3/uL0.0-0.2 [facility] InstituteBasophils/100 WBC Auto (Bld)Ordered By: Jasper Martinez on 06-16-0775Kvnrpdwnx/100 WBC (Bld)0.6 %.[facility] InstituteBilirubin.total [Mass/volume] in Serum or PlasmaOrdered By: Jasper Martinez on 02-25-5500Quqcbjvyf [Mass/Vol]0.4 mg/dL0.3-1.0[facility] InstituteCOVID CepheidOrdered By: Jasper Martinez on 06-14-2023 SARS-CoV-2 (COVID-19) Ab IA QlNegativeNegativeRiverview Health Institute Comment on above:This is a duplicate [employer]ep[employer] Xpert Xpress CoV-2/Flu/RSV Plus RNA by RT-PCR result to be used for statistical tracking purpose only.SARS-CoV-2 (COVID-19) RNA VERONA+probe Ql (Unsp spec)[facility] InstituteCalcium [Mass/volume] in Serum or PlasmaOrdered By: Jasper Martinez on 06-14-2023 Calcium [Mass/Vol]9.0 mg/dL8.6-10.3FBerger HospitalCarbon dioxide, total [Moles/volume] in Serum or PlasmaOrdered By: Jasper Martinez on 22-70-9029WW1 [Moles/Vol]23.4 mmol/L21.0-31.0[facility] Chloride [Moles/volume] in Serum or PlasmaOrdered By: Jasper Martinez 72-44-1802Ipitjaml [Moles/Vol]105 mmol/B70-762LqilxuwvcRiverview Health Institute Creatine kinase [Enzymatic activity/volume] in Serum or PlasmaOrdered By: Jasper Martinez on 93-30-6588SD [Catalytic activity/Vol]185 U/U63-564FuyvpeaypRiverview Health InstituteCreatinine [Mass/volume] in Serum or PlasmaOrdered By: Jasper Martinez on 93-84-5504Jzsdpakyll [Mass/Vol]0.89 mg/dL0.70-1.30[facility] InstituteEosinophils Auto (Bld) [#/Vol]Ordered By: Jasper Martinez on 27-61-0522Grrxnbbkxvi (Bld) [#/Vol]0.8 10*3/uL0.0-0.45[facility] InstituteEosinophils/100 WBC Auto (Bld)Ordered By: Jasper Martinez on 15-39-2807Svitmxaghaj/100 WBC (Bld)9.6 %.[facility] InstituteErythrocyte distribution width Auto (RBC) [Ratio]Ordered By: Jasper Martinez on 15-38-0725Tjhlndrigrw distribution width (RBC) [Ratio]14.4 %12.0-14.8 [facility] InstituteGlobulin Calc (S) [Mass/Vol]Ordered By: Jasper Martinez on 83-97-6007Btukevro (S) [Mass/Vol]2.5 g/dLRiverview Health InstituteGlucose [Mass/volume] in Serum or PlasmaOrdered By: Jasper Martinez on 45-62-1743Uvkkgfy [Mass/Vol]144 mg/kP99-381LhnsmfvknRiverview Health InstituteComment on above:ADA recommended reference rangeRandom Glucose Reference Range is dependent on time and content of last meal. Glucose of more than 200 mg/dL in a nonstressed, ambulatory subject supports the diagnosisof Diabetes Mellitus.Hematocrit Auto (Bld) [Volume fraction]Ordered By: Jasper Martinez on 53-13-8640Ctxckoqquy (Bld) [Volume fraction]40.8 %38.8-50.0[facility] InstituteHemoglobin [Mass/volume] in BloodOrdered By: Jasper Martinez 13-40-3884Nwbbcblqed (Bld) [Mass/Vol]14.3 g/dL13.0-17.0[facility] InstituteINR in Platelet poor plasma by Coagulation assayOrdered By: Jasper Martinez on 42-19-9794RGB Coag (PPP) [Relative time]1.1 {INR}[facility] InstituteComment on above:INR Therapeutic Range A) Pre- and [...] by Automated counOrdered By: Jasper Martinez on 00-14-6234HJV corrected for nucl RBC Auto (Bld) [#/Vol]8.1 10*3/uL 4.1-10.5FBerger HospitalLymphocytes Auto (Bld) [#/Vol]Ordered By: Jasper Martinez on 89-16-8858Rseogcrwfhg (Bld) [#/Vol]1.5 10*3/uL1.00-4.8 [facility] InstituteLymphocytes/100 WBC Auto (Bld)Ordered By: Jasper Martinez on 52-83-7861Fnqonvvarqi/100 WBC (Bld)18.5 %.[facility] Auto (RBC) [Entitic mass]Ordered By: Jasper Martinez on 39-12-7729DBL (RBC) [Entitic mass]30.1 pg27.5-35.2FThe University of Toledo Medical CenterHC Auto (RBC) [Mass/Vol]Ordered By: Jasper Martinez on 58-81-3429XQLO (RBC) [Mass/Vol]34.9 g/dL32.5-35.6FBerger HospitalMCV Auto (RBC) [Entitic vol]Ordered By: Jasper Martinez on 29-41-4885WHB (RBC) [Entitic vol]86.2 fL83.5-101[facility] InstituteMagnesium [Mass/volume] in Serum or PlasmaOrdered By: Jasper Martinez on 06-14-2023 Magnesium [Mass/Vol]2.0 mg/dL1.9-2.7FBerger HospitalMonocyte distribution width [Entitic volume] in Blood by AutomatedOrdered By: Jasper Martinez on 79-29-7553Mpmqrvor distribution width Auto (Bld) [Entitic vol]16.39 % 0.00-20.00[facility] InstituteMonocytes Auto (Bld) [#/Vol]Ordered By: Jasper Martinez on 82-50-0690Rcezkrjod (Bld) [#/Vol]0.8 10*3/uL0.0-0.8 [facility] InstituteMonocytes/100 WBC Auto (Bld)Ordered By: Jasper Martinez on 82-32-9362Fvwammxps/100 WBC (Bld)10.1 %.[facility] InstituteNatriuretic peptide B [Mass/Vol]Ordered By: Jasper Martinez on 55-52-3723Gopjpvnagin peptide B (Bld) [Mass/Vol]67.0 pg/mL5-100[facility] InstituteNeutrophils Auto (Bld) [#/Vol]Ordered By: Jasper Martinez on 53-94-2578Hipvbychjvp (Bld) [#/Vol]4.9 10*3/uL1.8-7.7FBerger HospitalNeutrophils/100 WBC Auto (Bld)Ordered By: Jasper Martinez on 45-55-7937Huukgcjxtrt/100 WBC (Bld)61.2 %.[facility] InstituteNo Panel InformationOrdered By: Jasper Martinez on 06-49-6409Segdnqynu GFR (CKD-EPI)> 60.0 mL/MinRiverview Health InstitutePharmacy Creatinine Clearance (Chem92.42[facility] InstituteNucleated erythrocytes [Presence] in Blood by Automated countOrdered By: Jasper Martinez on 71-87-0309Fbeeescsh RBC Auto Ql (Bld)0.1 /100{WBC}0-0.5FBerger HospitalPlatelet mean volume Auto (Bld) [Entitic vol]Ordered By: Jasper Martinez on 10-34-0847Ccrdylcw mean volume (Bld) [Entitic vol]8.4 fL6.6-10.1 [facility] InstitutePlatelets Auto (Bld) [#/Vol]Ordered By: Jasper Martinez on 33-83-8317Ltbggmuas (Bld) [#/Vol]181 10*3/bS071-577 [facility] InstitutePotassium [Moles/volume] in Serum or Plasma Ordered By: Jasper Martinez on 64-23-3120Vfktokuco [Moles/Vol]3.9 mmol/L 3.5-5.1FBerger HospitalProtein [Mass/volume] in Serum or Plasma Ordered By: Jasper Martinez on 32-12-3747Qzgfret [Mass/Vol]6.6 g/dL6.4-8.9 [facility] InstituteProthrombin time (PT)Ordered By: Jasper Martinez on 02-57-7457FS Coag (PPP) [Time]12.1 s9.0-12.9[facility] InstituteComment on above:A hematocrit value greater than 55% may lead to inaccurate results in coagulation testing. Patientshaving hematocrit values >55% require a special collection tube for coagulation studies. Please contact the laboratory at [phone] for redraw instructions.RBC Auto (Bld) [#/Vol]Ordered By: Jasper Martinez on 11-52-9295FIC (Bld) [#/Vol]4.74 10*6/uL3.90-5.60 [facility]aritan Hospitalerum or plasma albumin/globulin mass ratio Ordered By: Jasper Martinez on 72-58-3170Gabgfos/Globulin [Mass ratio]1.6 {ratio}[facility] Hospitalerum or plasma anion gap determination Ordered By: Jasper Martinez on 06-50-4646Iozqk gap [Moles/Vol]11.5 mmol/L 6.0-15.0[facility] Hospitalodium [Moles/volume] in Serum or PlasmaOrdered By: Jasper Martinez on 15-97-4858[place] [Moles/Vol]136 mmol/L 136-145[facility] InstituteTroponin I.cardiac [Mass/volume] in Serum or Plasma by Detection limit <= 0.01 ng/Ordered By: Jasper Martinez on 07-39-6194Qehnvheq I.cardiac DL <= 0.01 ng/mL [Mass/Vol]26.8 pg/mL0.0-20.0 [facility] InstituteUrea nitrogen [Mass/volume] in Serum or Plasma Ordered By: Jasper Martinez on 53-27-4556Sraa nitrogen [Mass/Vol]12 mg/dL7-25 [facility] InstituteWBC Auto (Bld) [#/Vol]Ordered By: Jasper Martinez on 48-49-2271MZS (Bld) [#/Vol]8.1 10*3/uL4.1-10.5FBerger HospitalCardiac echo study Procedureon 94-27-4582Oulopss by an unspecified provider.[facility] Orthopedic CenterUnVan Wert County Hospital Alanine aminotransferase [Enzymatic activity/volume] in Serum or PlasmaOrdered By: Sera Flower on 34-11-0660ZUV [Catalytic activity/Vol]51 U/L7-52[facility] InstituteAlbumin [Mass/volume] in Serum or Plasma by Bromocresol green (BCG) dye binding methoOrdered By: Sera Flower on 28-32-7514Ghjlarq BCG dye [Mass/Vol]4.4 g/dL3.5-5.7FBerger HospitalAlkaline phosphatase [Enzymatic activity/volume] in Serum or PlasmaOrdered By: Sera Flower on 79-30-5557SPB [Catalytic activity/Vol]61 U/K25-303ZszzpsxpoRiverview Health InstituteAspartate aminotransferase [Enzymatic activity/volume] in Serum or PlasmaOrdered By: Sera Flower on 17-23-1921SER [Catalytic activity/Vol]39 U/L 13-39[facility] InstituteBilirubin.total [Mass/volume] in Serum or PlasmaOrdered By: Sera Flower on 41-75-4414Tzphkewvy [Mass/Vol]0.7 mg/dL0.3-1.0 [facility] InstituteCalcium [Mass/volume] in Serum or PlasmaOrdered By: Sera Flower on 67-86-3079Ipulzcg [Mass/Vol]9.1 mg/dL8.6-10.3FBerger HospitalCarbon dioxide, total [Moles/volume] in Serum or Plasma Ordered By: Sera Flower on 05-47-6066MQ7 [Moles/Vol]28.0 mmol/L21.0-31.0 [facility] InstituteChloride [Moles/volume] in Serum or Plasma Ordered By: Sera Flower on 68-02-9554Mesceayn [Moles/Vol]103 mmol/L98-107 [facility] InstituteCreatinine [Mass/volume] in Serum or Plasma Ordered By: Sera Flower on 86-70-6186Xgsaemjqlc [Mass/Vol]1.00 mg/dL0.70-1.30 [facility] InstituteGlobulin Calc (S) [Mass/Vol]Ordered By: Sera Flower on 62-26-8905Rrwfpxee (S) [Mass/Vol]1.7 g/dLRiverview Health InstituteGlucose [Mass/volume] in Serum or PlasmaOrdered By: Sera Flower on 37-81-0984Ifccyrq [Mass/Vol]93 mg/aT24-527RuswrwggeRiverview Health Institute Comment on above:ADA recommended reference rangeRandom Glucose Reference Range is dependent on time and content of last meal. Glucose of more than 200 mg/dL in a nonstressed, ambulatory subject supports the diagnosisof Diabetes Mellitus.No Panel InformationOrdered By: Sera Flower on 44-52-1553Tghrccica GFR (CKD-EPI)> 60.0 mL/MinRiverview Health InstitutePharmacy Creatinine Clearance (Chem N/[facility] CenterNo Panel Informationon 64-51-3549UFEssentia Health 250 DO Work Phone: Potassium [Moles/volume] in Serum or PlasmaOrdered By: Sera Flower on 23-37-7877Qgmfmdofk [Moles/Vol]4.4 mmol/L3.5-5.1FBerger HospitalProtein [Mass/volume] in Serum or PlasmaOrdered By: Sera Flower on 66-05-0126Swhqvni [Mass/Vol]6.1 g/dL6.4-8.9[facility] Hospitalerum or plasma albumin/globulin mass ratioOrdered By: Sera Flower on 60-80-4674Rjkqxof/Globulin [Mass ratio]2.6 {ratio}[facility] Hospitalerum or plasma anion gap determinationOrdered By: Sera Flower on 38-00-7790Agkus gap [Moles/Vol]11.4 mmol/L6.0-15.0[facility] Hospitalodium [Moles/volume] in Serum or PlasmaOrdered By: Sera Flower on 69-26-0960Gguhlb [Moles/Vol]138 mmol/D949-693PcxagbgntRiverview Health Institute Urea nitrogen [Mass/volume] in Serum or PlasmaOrdered By: Sera Flower on 19-60-3821Vqjp nitrogen [Mass/Vol]15 mg/dL7-25[facility] CARDIAC STRESS/REST INJECTIONon 05-13-1724GFN CARDIAC STRESS/REST INJECTION Patient Name: DEMARCUS CALDERON STUDY: MYOCARDIAL PERFUSION STRESS TEST WITH LEXISCAN Per[facility] [address] [place] [address], [address], [place] [address] [facility] Provider: Rene Cortez MD, FACC PCP: Dr. Hunter Flower Supervising provider: Danna Davis DO, [facility] INDICATION: CAD; HTN Hyperlipidemia Ischemic cardiomyopathy HISTORY: Gender: M; Age: 68 y/o ; Height: 172.72 cm; Weight: 856.7701689 kg. CAD; High Cholesterol; HTN; Quit smoking 38 years ago. Cardiac catheterization on 2009. PTCA on 2009. COMPARISON: Previous nuclear testing completed at [facility]. ACCESSION NUMBER(S): [id number]; [id number]; [id number] ORDERING CLINICIAN: RENE CORTEZ TECHNIQUE: TWO DAY [...] changes are seen. Electronically signed by: Hoda WILEYCommunity HospitalNo Panel Informationon 23-85-1413XfcsxqYW-[facility]-Terrell Dalal DO Work Phone: Office Visit (Cardiology)on 49-89-7276Cklbva-up visit Diagnoses/Problems Assessed CAD (coronary artery disease) [...] lose weight.; Status:Complete - Retrospective Authorization; Done: [id number] Essential hypertension, Ischemic cardiomyopathy Renew: Carvedilol 6.25 [...] emphasis on low-calorie diet Rene Cortez MD, [facility] Surgical History Problems History of [...] a (more content not included)...NormalUH TouchworksTobacco Screening.on 70-06-1651Prnyg depression screening krcumslfpiUmSJ-Zorwhfeffx-Volvszqx 250 DO Work Phone: Fall risk assessmenta) No falls within the last year ZU-Obeonrwulw-Ibmuwafy 250 DO Work Phone: Tobacco use status CPHSb) DuLO-Qdgxsnoyny-Tuqikrsy 250 DO Work Phone: MRI Soft Tissue Neck w/o + w/on 87-13-1073JCI Soft Tissue Neck w/o + w/CLINICAL HISTORY: [...] and signed by Tex Walsh on 07/16/2022 1246NormalNortwickenburg regional hospitaln [facility] SpecialistMRI Brain w/o + w/on 36-15-6268KYO Brain w/o + w/EXAM: MRI Brain. Multi-sequence [...] by Sean Trejo on 07/01/2022 0911[facility] SpecialistCNPNon 13-33-5053WTOEGogcztnzr (INTMLN) DEMARCUS CALDERON ([id number]) 1955 Date Time Provider Department 06/21/22 DEANDRA BENDER During your visit today, we recorded the following information about you: Delores Mccollum 06/21/2022 12:54 PM Signed [facility] called today. : 1955 Allergies: Codeine, Codeine-Guaifenesin, and Guaifenesin (home) [phone] (cell) Reason for call: Sasha F:[phone] Asking for the MRI orders and office notes to be faxed over to [facility]. Patient will be having them done there. Patient last appointment: Visit date not found The patients preferred pharmacy has been captured for this encounter? not asked Delores Heard Ryan [facility] 06/21/2022 2:03 PM Signed Notes and MRI [...] (None) Encounter Status:Closed by ORQUIDEA SIBLEY on 06/21/22NoFairfield Medical CenterXR Ribs w/ PA Chest Left*on [id number] Ribs w/ PA Chest Left* CLINICAL HISTORY: [...] and signed by Tex Walsh on 03/13/2022 1254[facility] Chest 2 Views*on 78-05-0239YR Chest 2 Views* COMPARISON: none TECHNIQUE: Upright PA and lateral views of the chest were obtained. FINDINGS: Heart is normal in size. Lungs are clear and well expanded. No pleural effusion or pneumothorax. The bony thorax is unremarkable. IMPRESSION: NO ACUTE CARDIOPULMONARY ABNORMALITY. Report reported and signed by AMALIA LOGAN on 01/17/2022 1243[facility] JacksonTobacco Screening.on [id number] depression screening assessmentNoShriners Hospit[facility] [address] DO Work Phone: Fall risk assessmenta) No falls within the last year -[facility] 250 DO Work Phone: Tobacco use status CPHSb) NoM-[facility] 250 DO Work Phone: CT Chest w/Contraston 70-52-5193BW Chest w/Contrast History: Hemoptysis Technique: Multiple contiguous [...] CMP, CBCAD #### [facility] [address] [place], [place] [id number]/100 WBC (Bld)0.8 %[facility] SpecialistComment on above:Performed By: #### CMP, CBCAD #### [facility] [address], [place] [id number] (Bld) [#/Vol]0.46 10*3/uLNormal0.02-0.50[facility] SpecialistComment on above:Performed By: #### CMP, CBCAD #### [facility] [address], [place] [id number]/100 WBC (Bld)7.7 %[facility] SpecialistComment on above:Performed By: #### CMP, CBCAD #### [facility] [address], [place] [id number] distribution width (RBC) [Ratio]13.3 %Normal 11.0-15.0[facility] SpecialistComment on above:Performed By: #### CMP, CBCAD #### [facility] [address], [place] [id number] (Bld) [Volume fraction]42.2 %Xjvswp37.5-50.0 [facility] SpecialistComment on above:Performed By: #### CMP, CBCAD #### [facility] [address], [place] [id number] (Bld) [Mass/Vol]14.5 g/wNHaqlnq77.0-17.1NorthMer[facility] SpecialistComment on above:Performed By: #### CMP, CBCAD #### [facility] [address], [place] [id number] (Bld) [#/Vol]1.6 10*3/uLNormal0.9-3.9NoUniversity [facility]als [facility] SpecialistComment on above:Performed By: #### CMP, CBCAD #### [facility] [address], [place] [id number]/100 WBC (Bld)26.1 %NormalNorthern Washington Medical SpecialistComment on above:Performed By: #### CMP, CBCAD #### [facility] [address], [place] [id number] (RBC) [Entitic mass]29.7 vyIqoyjy63.0-33.0NoUniversity Hospitals E[facility] SpecialistComment on above:Performed By: #### CMP, CBCAD #### [facility] [address], [place] [id number] (RBC) [Mass/Vol]34.4 g/pLRgrzrz08.0-36.0NoUniversity [facility]als [facility] SpecialistComment on above:Performed By: #### CMP, CBCAD #### [facility] [address], [place] [id number] (RBC) [Entitic vol]86 cWRvbnqp91-452Awwxffvw [facility] SpecialistComment on above:Performed By: #### CMP, CBCAD #### [facility] [address], [place] [id number] (Bld) [#/Vol]0.9 10*3/uLNormal0.2-0.9NoUniversity [facility]als [facility] SpecialistComment on above:Performed By: #### CMP, CBCAD #### [facility] [address], [place] [id number]/100 WBC (Bld)14.6 %NormalNoUniversity Hospitals [facility] SpecialistComment on above:Performed By: #### CMP, CBCAD #### [facility] [address], [place] [id number] (Bld) [#/Vol]3.0 10*3/uLNormal1.5-7.8NoUniversity [facility]als [facility] SpecialistComment on above:Performed By: #### CMP, CBCAD #### [facility] [address], [place] [id number]/100 WBC (Bld)50.5 %NormalNoUniversity Hospitals [facility] SpecialistComment on above:Performed By: #### CMP, CBCAD #### [facility] [address], [place] [id number] mean volume (Bld) [Entitic vol]10.90 fLNormal 7.50-12.50[facility]ortGal[facility] Hospital SpecialistComment on above:Performed By: #### CMP, CBCAD #### [facility] [address], [place] [id number] (Bld) [#/Vol]166 10*3/pTKmfaav255-795Mnubgdpa [facility] SpecialistComment on above:Performed By: #### CMP, CBCAD #### [facility] [address], [place] [id number] (Bld) [#/Vol]4.89 10*6/uLNormal4.20-5.80[facility]ortGal[facility] SpecialistComment on above:Performed By: #### CMP, CBCAD #### [facility] [address], [place] [id number]-YQ35.2 dEBvjrej74.0-50.0NortGalion HospitalLottery Manager Comment on above:Performed By: #### CMP, CBCAD #### [facility] [address], [place] [id number] (Bld) [#/Vol]5.9 10*3/uLNormal3.8-11.0[facility]Gal[facility] SpecialistComment on above:Performed By: #### CMP, CBCAD #### [facility] [address], [place] [id number] Metabolic Panelon 98-81-6617Njlhnog [Mass/Vol] 4.6 g/dLNormal3.6-5.1[facility] SpecialistComment on above:Performed By: #### CMP, CBCAD #### [facility] [address], [place] [id number]/Globulin [Mass ratio]2.7 {ratio}High1.0-2.5NoUniversity [facility]als [facility] SpecialistComment on above:Performed By: #### CMP, CBCAD #### [facility] [address], [place] [id number] [Catalytic activity/Vol]74 U/OLdjces13-250Srwclnnw [facility] SpecialistComment on above:Performed By: #### CMP, CBCAD #### [facility] [address], [place] [id number] [Catalytic activity/Vol]55 U/LHigh9-46[facility] SpecialistComment on above:Result Comment: 04/27/2021 Female reference range changed.Performed By: #### CMP, CBCAD #### [facility] [address], [place] [id number] gap [Moles/Vol]16 mmol/FEkvmmg63-77Qonzmvat [place] [facility] SpecialistComment on above:Result Comment: Effective 06/02/2019 reference range changed.Performed By: #### CMP, CBCAD #### [facility] [address], [place] [id number] [Catalytic activity/Vol]39 U/EUfploh40-29Fnqipmcr [place] [facility] SpecialistComment on above:Performed By: #### CMP, CBCAD #### [facility] [address], [place] [id number]/CREA13 RatioNormal6-22NortMer[facility] Lottery Manager Comment on above:Performed By: #### CMP, CBCAD #### [facility] [address], [place] [id number] [Mass/Vol]9.0 mg/dLNormal8.6-10.2[facility] SpecialistComment on above:Performed By: #### CMP, CBCAD #### [facility] [address], [place] [id number] [Moles/Vol]107 mmol/RBgjzwe40-590Yvhhrrnm [facility] SpecialistComment on above:Performed By: #### CMP, CBCAD #### [facility] [address], [place] [id number] [Moles/Vol]20 mmol/WDlvmfz91-91Tohjcrvp [facility] SpecialistComment on above:Performed By: #### CMP, CBCAD #### [facility] [address], [place] [id number] [Mass/Vol]1.0 mg/dLNormal0.7-1.4[facility] SpecialistComment on above:Performed By: #### CMP, CBCAD #### [facility] [address], [place] [id number] mL/min/1.35a7Yvqsbh>60[facility] SpecialistComment on above:Performed By: #### CMP, CBCAD #### [facility] [address], [place] [id number] mL/min/1.11c6Mrirsh>60[facility] SpecialistComment on above:Performed By: #### CMP, CBCAD #### [facility] [address], [place] [id number] (S) [Mass/Vol]1.7 g/dLLow1.9-3.7Nortwickenburg regional hospitaln [facility] SpecialistComment on above:Performed By: #### CMP, CBCAD #### [facility] [address], [place] [id number] [Mass/Vol]121 mg/oDFhqv77-55Aabopxnp [place] [facility] SpecialistComment on above:Result Comment: For FASTING Glucose --- ADA reference ranges: Normal 65-99 mg/dl Prediabetes 100-125 Diabetes >/= 126Performed By: #### CMP, CBCAD #### [facility] [address], [place] [id number] [Moles/Vol]4.2 mmol/LNormal3.5-5.5[facility] SpecialistComment on above:Performed By: #### CMP, CBCAD #### [facility] [address], [place] [id number] [Mass/Vol]6.3 g/dLNormal6.1-8.1[facility] SpecialistComment on above:Performed By: #### CMP, CBCAD #### [facility] [address], [place] [id number] [Moles/Vol]139 mmol/AMdjtmw918-072Hgcsdtlp [facility] SpecialistComment on above:Performed By: #### CMP, CBCAD #### [facility] [address], [place] [id number]<0.3NormalNoUniversity [facility]als [facility] SpecialistComment on above:Performed By: #### CMP, CBCAD #### [facility] [address], [place] [id number] nitrogen [Mass/Vol]12 mg/dLNormal7-25[facility] SpecialistComment on above:Performed By: #### CMP, CBCAD #### [facility] [address], [place] [id number] (with Creat)on 98-91-0515zZYI<1.2LowNorthSalem City HospitalComment on above:Result Comment: Unable to calculate mALB/Crea ratio, mALB is <1.2 mg/dL mALB reference range not established.Performed By: #### mALBC #### [facility] [address], [place] [id number] mg/qAMpplne22-709Ovfzsmap [place] Lottery Manager Comment on above:Performed By: #### mALBC #### [facility] [address], [place] [id number] Specific Antigen, Totalon 68-93-2498RWZZ0.330 ng/mL Normal<4.000NoRegional Medical CenterComment on above:Result Comment: PSA Test Method: ECLIA/Brandi e 601Performed By: #### PSA #### [facility] [address], [place] [id number] - URINALYSIS,COMPLETEon 20-50-1966Umalzbkavs (U)CLEARNormal CLEARUniversity Hospitals Elyria Medical CenterComment on above:Order Comment: [facility] performed at: QPT, [facility], [address] [place] [address], [address] [place] [address], [place], [address], Business Continuity Consultant: Rafi Agustin MD [facility] Collection Date/Time: [facility] Results Received Date/Time: [facility] Reported Date/Time: [id number] By: #### 32F #### [facility] [address] [place], [place] [address]ASRVYBTSKBDS SEENNormalNONE SEENNortwickenburg regional hospitaln [facility] CenterLottery Manager Comment on above:Order Comment: [facility] performed at: QPT, [facility], [address] , [address] [place] [address], [address] [place] [address], Business Continuity Consultant: Rafi Agustin MD [facility] Date/Time: [facility] Results Received Date/Time: [facility] Reported Date/Time: [id number] By: #### 32F #### [facility] [address] [place], [place] [address]Aphaguvfg Ql (U)NegativeNormalNEGATIVErtMercy Health [facility] Medical SpecialistComment on above:Order Comment: [facility] performed at: OTOY, [facility], [address] , [address] [place] [address], [address] [place] [address], Business Continuity Consultant: Rafi Agustin MD [facility] Date/Time: [facility] Results Received Date/Time: [facility] Reported Date/Time: [id number] By: #### 32F #### [facility] [address] [place], [place] [address]Wmajh (U)YELLOWNormalYELLOWNortwickenburg regional hospitaln [place] Lottery Manager Comment on above:Order Comment: [facility] performed at: QPT, [facility], [address] , [address] [place] [address], [address] [place] [address], Business Continuity Consultant: Rafi Agustin MD [facility] Date/Time: [facility] Results Received Date/Time: [facility] Reported Date/Time: [id number] By: #### 32F #### [facility] [address] [place], [place] [address]Tqzyfvz Ql (U)NegativeNormalNEGATIVENortwickenburg regional hospitaln [place] [facility] SpecialistComment on above:Order Comment: [facility] performed at: [facility], [facility], [address] , [address] [place] [address], [address] [place] [address], Business Continuity Consultant: Rafi Agustin MD [facility] Date/Time: [facility] Results Received Date/Time: [facility] Reported Date/Time: [id number] By: #### 32F #### [facility] [address] [place], [place] [address]GPWLUWZ CASTNONE SEENNormalNONE SEENSt. [facility] SpecialistComment on above:Order Comment: [facility] performed at: [facility], [facility], [address] , [address] [place] [address], [address] [place] [address], Business Continuity Consultant: Rafi Agustin MD [facility] Date/Time: [facility] Results Received Date/Time: [facility] Reported Date/Time: [id number] By: #### 32F #### [facility] [address] [place], [place] [address]Zxiercu Ql (U)NegativeNormalNEGKettering Health Hamilton SpecialistComment on above:Order Comment: [facility] performed at: [facility], [facility], [address] , [address] [place] [address], [address] [place] [address], Business Continuity Consultant: Rafi Agustin MD [facility] Date/Time: [facility] Results Received Date/Time: [facility] Reported Date/Time: [id number] By: #### 32F #### [facility] [address] [place], [place] [address]Wwygnmstq esterase Test strip Ql (U)NegativeNormalNEGWhite Hospital SpecialistComment on above:Order Comment: [facility] performed at: [facility], [facility], [address] , [address] [place] [address], [address] [place] [address], Business Continuity Consultant: Rafi Agustin MD [facility] Date/Time: [facility] Results Received Date/Time: [facility] Reported Date/Time: [id number] By: #### 32F #### [facility] [address] [place], [place] [address]Cqqfbpc Ql (U)NegativeNormalNEGATIVENoUniversity Hospitals [facility] SpecialistComment on above:Order Comment: [facility] performed at: [place], [facility], [address] [facility], [address] [place] [address], [address] [place] [address], Business Continuity Consultant: Rafi Agustin MD [facility] Date/Time: [facility] Results Received Date/Time: [facility] Reported Date/Time: [id number] By: #### 32F #### [facility] [address] [place], [place] [address]QIEEMO BLOODNegativeNormalNEGATIVESt. [facility] SpecialistComment on above:Order Comment: [facility] performed at: [place], [facility], [address] , [address] [place] [address], [address] [place] [address], Business Continuity Consultant: Rafi Agustin MD [facility] Date/Time: [facility] Results Received Date/Time: [facility] Reported Date/Time: [id number] By: #### 32F #### [facility] [address] [place], [place] [address]uG (U)6.5 [pH]Normal5.0-8.0NoUniversity Hospitals Ely[facility] Center Specialist Comment on above:Order Comment: [facility] performed at: [place], [facility], [address] , [address] [place] [address], [address] [place] [address], Business Continuity Consultant: Rafi Agustin MD [facility] Date/Time: [facility] Results Received Date/Time: [facility] Reported Date/Time: [id number] By: #### 32F #### [facility] [address] [place], [place] [address]Kryastk Ql (U)NegativeNormalNEGATIVENortGalion Hospital SpecialistComment on above:Order Comment: [facility] performed at: [facility], [facility], [address] [place] [address], [address] [place] [address], [address] [place] [address], Business Continuity Consultant: Rafi Agustin MD [facility] Date/Time: [facility] Results Received Date/Time: [facility] Reported Date/Time: [id number] By: #### 32F #### [facility] [address] [place], [place] [address]BSDMETU SEENNormal< OR = 2[facility] SpecialistComment on above:Order Comment: [facility] performed at: [place], [facility], [address] [place] [address], [address] [place] [address], [address] [place] [address], Business Continuity Consultant: Rafi Agustin MD [facility] Date/Time: [facility] Results Received Date/Time: [facility] Reported Date/Time: [id number] By: #### 32F #### [facility] [address] [place], [place] [address]Neffhyse gravity (U) [Rel density]1.579Cjimxi2.001-1.035NortGalion Hospital SpecialistComment on above:Order Comment: [facility] performed at: [facility], [facility], [address] [place] [address], [address] [place] [address], [address] [place] [address], Business Continuity Consultant: Rafi Agustin MD [facility] Collection Date/Time: [facility] Results Received Date/Time: [facility] Reported Date/Time: [id number] By: #### 32F #### [facility] [address] [facility] [place] [address]RNUZJPNY EPITHELIAL CELLSNONE SEENNormal< OR = 5[facility] SpecialistComment on above:Order Comment: [facility] performed at: [place], [facility], [address] [place] [address] Rd, [address] [place], [address], Business Continuity Consultant: Rafi Agustin MD [facility] Date/Time: [facility] Results Received Date/Time: [facility] Reported Date/Time: [id number] By: #### 32F #### [facility] [address] [place], [place] [address]YHULQDC SEENNormal< OR = 5[facility] SpecialistComment on above:Order Comment: [facility] performed at: [place], [facility], [address] [facility], [address] [place], [address], Business Continuity Consultant: Rafi Agustin MD [facility] Date/Time: [facility] Results Received Date/Time: [facility] Reported Date/Time: [id number] By: #### 32F #### [facility] [address] [place], [place] [address]Tl Panel InformationCleveland Clinic [facility] Hospital Vital Signs Date TimeVital SignValuePerforming CgimwtuqzBsopgaol56-20-3199 09:46-0400Body .7 cmKiya Richmond DEDICATED REGIONAL DRIVER-STOCK CUTTER Work Phone: [facility]05-30-2025 09:46-0400 Body mass index (BMI) [Ratio]33.82 kg/j9VfvvfKiya Richmond DEDICATED REGIONAL DRIVER-STOCK CUTTER Work Phone: [facility]05-30-2025 09:46-0400 Body quxwtm339.88 kgKiya Richmond DEDICATED REGIONAL DRIVER-STOCK CUTTER Work Phone: [facility]05-30-2025 09:46-0400 Diastolic blood ifkwlxvw32 mm[Hg]Kiya Richmond DEDICATED REGIONAL DRIVER-STOCK CUTTER Work Phone: [facility]05-30-2025 09:46-0400 Heart rate84 /Saad Richmond DEDICATED REGIONAL DRIVER-STOCK CUTTER Work Phone: [facility]05-30-2025 09:46-0400 Systolic blood jmgaawbt809 mm[Hg]Kiya Richmond DEDICATED REGIONAL DRIVER-STOCK CUTTER Work Phone: [facility]05-24-2025 13:00-0400 Diastolic blood lyhxcgzx37 mm[Hg]Sera Flower MD Work Phone: [facility]05-24-2025 13:00-0400 Heart rate75 /minSera Flower MD Work Phone: [address] [place], [place] 7597305-24-2025 13:00-0400 Respiratory rate18 /minSera Flower MD Work Phone: [phone] [place], [place] 7960505-24-2025 13:00-0400 SaO2% (BldA) [Mass fraction]94 %Sera Flower MD Work Phone: [phone])347-[address] [place], [place] 7960505-24-2025 13:00-0400 Systolic blood eknsmdkb875 mm[Hg]Sera Flower MD Work Phone: [phone] [place], [place] 7960505-24-2025 12:00-0400 Body tmenxwssagb20.9 [degF]Sera Flower MD Work Phone: [phone])028-[address] [place], [place] 7960505-24-2025 09:00-0400 Inhaled oxygen flow rate2 L/minSera Flower MD Work Phone: [phone] [place], [place] 7960505-24-2025 05:22-0400 Body hyqqgi30.9 kgSera Flower MD Work Phone: [phone])364-[address] [place], [place] 7960505-23-2025 15:36-0400 Body yoggyg388.72 cmRmartha Flower MD Work Phone: [address] [place], [place] 7597304-30-2025 13:29-0400 Body fmreqi357.7 cmaSlly Mancuso FAN MAIL CLERK Work Phone: noSaint [facility] CenterDyckjxvgkg67-26-3333 13:29-0400Body mass index (BMI) [Ratio]36.64 kg/m2Sally Mancuso FAN MAIL CLERK Work Phone: noSaint [facility] Medical CenterGkwslxtgml24-46-1249 13:29-0400Body zduljt604.32 kgGina Risaliti FAN MAIL CLERK Work Phone: noSaint [facility] CenterPsqjldeivf73-32-9641 13:29-0400Diastolic blood mm[Hg]Sally Risaliti FAN MAIL CLERK Work Phone: [facility]'sUexrcjjaqa31-58-1565 13:29-0400Heart rate79 /min Sally Risaliti FAN MAIL CLERK Work Phone: noSaint Francis Medical CenterIbdpyalrkb44-04-1916 13:29-6856NeE0% (BldA) [Mass fraction]96 %Sally Risaliti FAN MAIL CLERK Work Phone: noSaint [facility] Medical CenterFlcatpwycs29-71-5416 13:29-0400Systolic blood pvqyvlxa689 mm[Hg]Sally Risaliti FAN MAIL CLERK Work Phone: [facility]'sNqlwdxpkrm51-32-2731 09:14-0500Body vctmao613.7 cmGina Risaliti FAN MAIL CLERK Work Phone: [facility] John'sZxrpopmxsj34-80-8917 09:14-0500Body mass index (BMI) [Ratio]35.88 kg/m2Gina Risaliti FAN MAIL CLERK Work Phone: noSaint Francis Medical CenterUydfktugnv23-28-2055 09:14-0500Body jeembk640.05 kgGina Risaliti FAN MAIL CLERK Work Phone: [facility] John'sLxkcgnpnvo17-15-0624 09:14-0500Diastolic blood fjmpopzt56 mm[Hg]Sally Risaliti FAN MAIL CLERK Work Phone: [facility] John'sLummzhblci03-08-4252 09:14-0500Heart rate71 /min Sally Risaliti FAN MAIL CLERK Work Phone: CMSaint [facility] Medical CenterIlmafihsuq22-39-8639 09:14-5971MsB3% (BldA) [Mass fraction]98 %Sally Risaliti FAN MAIL CLERK Work Phone: noSaint Francis Medical CenterMwbaizouam63-60-9163 09:14-0500Systolic blood ivzavxgm473 mm[Hg]Sally Risaliti FAN MAIL CLERK Work Phone: noSaint Francis Medical CenterBgnloiqdbg60-45-5376 14:52-0500Respiratory rate16 /minOchopee COOK [facility] [place] 037762-19-2024 08:53-0500Body itiqnm706.7 cmRene Cortez MD Work Phone: [phone] [place], [place] 9504312-19-2024 08:53-0500 Body mass index (BMI) [Ratio]36.28 kg/i1TojesbRene Cortez MD Work Phone: [phone])[address]12-19-2024 08:53-0500 Body ixnmit684.23 kgRene Cortez MD Work Phone: [phone])[address]12-19-2024 08:53-0500 Diastolic blood jpgdncti99 mm[Hg]Rene Cortez MD Work Phone: [phone])[address]12-19-2024 08:53-0500 Heart rate60 /minRene Cortez MD Work Phone: 0(548)540-[address] [place], [place] 9504312-19-2024 08:53-0500 Systolic blood qyeldtvb207 mm[Hg]Rene Cortez MD Work Phone: [phone] [place], [place] 9504312-11-2024 17:27-0500 Body mass index (BMI) [Ratio]36.67 kg/i5ZwozlizGurjit Busby FAN MAIL CLERK Work Phone: [phone])846-[address] [place], [place] [address]Tykjunjmil80-34-4981 17:27-0500Body temperature 97.3 [degF]Gurjit Busby FAN MAIL CLERK Work Phone: [phone] [place], [place] [address]Xloemygonv61-54-7079 17:27-0500Body .41 kgGurjit Busby FAN MAIL CLERK Work Phone: [phone] [place], [place] [address]Kvpcaspcta53-83-8675 17:27-0500Diastolic blood efbbwbvk80 mm[Hg]Gurjit Busby FAN MAIL CLERK Work Phone: [phone] [place], [place] [address]Llvcvzmseu81-42-0105 17:27-0500Heart rate73 /min Gurjit Busby FAN MAIL CLERK Work Phone: [phone] [place], [place] [address]Evsvarnoeb29-81-3080 17:27-5662FuO3% (BldA) [Mass fraction]97 %Gurjit Busby FAN MAIL CLERK Work Phone: [facility] John'sWzqwgbvmgw21-79-5691 17:27-0500Systolic blood mm[Hg]Gurjit Busby FAN MAIL CLERK Work Phone: [facility] John'sPlqfijxhdl47-47-7065 11:59-0500Blood Pressure LocationJENNIFER ADRIÁN [facility] [place] 037762-02-2024 11:59-0500Diastolic blood bslobyek49 mm[Hg]SU ADRIÁN [facility] [place] 037762-02-2024 11:59-0500Heart rate63 /minJENNIFER ADRIÁN [facility] [place] 037762-02-2024 11:59-0500Systolic blood mibydqwc576 mm[Hg]SU ADRIÁN [facility] [place] 037761-20-2024 10:11-0500Diastolic blood grpkedep62 mm[Hg]SU ADRIÁN [facility] [place] 037761-20-2024 10:11-0500Mean blood olsprhpe45 mm[Hg]SU ADRIÁN [facility] [place] 037761-20-2024 10:11-0500Systolic blood jnocaffk346 mm[Hg]SU ADRIÁN [facility] [place] 037761-20-2024 09:45-0500Blood Pressure LocationJENNIFER ADRIÁN [facility] [place] 037761-20-2024 09:45-0500Body fznveflwcue76.6 [degF]SU ADRIÁN [facility] [place] 037761-20-2024 09:45-0500Diastolic blood lopuusnm81 mm[Hg]SU COOK [facility] [place] 037761-20-2024 09:45-0500Heart rate65 /minSU COOK [facility] [place] 037761-20-2024 09:45-0500Systolic blood mm[Hg]SU COOK [facility] [place] 037760-30-2024 13:03-0400Body rlwegm598.7 cmRmartha Flower MD Work Phone: [facility]'sZjhweeokyc64-55-8814 13:03-0400Body mass index (BMI) [Ratio]35.88 kg/o7AmbvvrSera Flower MD Work Phone: [facility]'sOsdnobuwha11-04-8060 13:03-0400Body bsyteo111.05 kgSera Flower MD Work Phone: [facility]'sBsnwmtsnlw18-81-5533 13:03-0400Diastolic blood iwfntvta34 mm[Hg]Sera Flower MD Work Phone: [facility]'sRpedbnwgde60-49-5603 13:03-0400Heart rate77 /min Sera Flower MD Work Phone: [place] [address]Olcifmxwfj35-84-9779 13:03-2075PqA1% (BldA) [Mass fraction]96 %Sera Flower MD Work Phone: [place] [address]Qpdoiivicl69-08-8105 13:03-0400Systolic blood fgpirvtp434 mm[Hg]Sera Flower MD Work Phone: [facility]'sWzjpbfbrte80-62-6312 10:29-0400Body .7 cmGinguanakito Mancuso NP Work Phone: noSaint Francis Medical CenterIicyobudgy66-73-1287 10:29-0400Body mass index (BMI) [Ratio]35.43 kg/m2Gina Kimberlyaliti FAN MAIL CLERK Work Phone: 1([phone])[address] [place], [place] 6749210-02-2024 10:29-0400Body srmgox761.69 kgAlexusa Kimberlyaliti FAN MAIL CLERK Work Phone: [phone])[address] [place], [place] 6749210-02-2024 10:29-0400Diastolic blood niwoiwuw14 mm[Hg]Sally Risaliti FAN MAIL CLERK Work Phone: [phone])[address] [place], [place] 6749210-02-2024 10:29-0400Heart rate67 /min Sally Risaliti FAN MAIL CLERK Work Phone: [phone])[address] [place], [place] 6749210-02-2024 10:29-0576FqZ2% (BldA) [Mass fraction]97 %Sally Kimberlyaliti FAN MAIL CLERK Work Phone: [phone])[address] [place], [place] 6749210-02-2024 10:29-0400Systolic blood mm[Hg]Sally Kimberlyaliti FAN MAIL CLERK Work Phone: 1(034)[address] [place], [place] 6749205-23-2024 09:25-0400Body foaasd246.7 cmRene Cortez MD Work Phone: [phone])[address]05-23-2024 09:25-0400 Body mass index (BMI) [Ratio]36.31 kg/h8YmhbrzRene Cortez MD Work Phone: 1(693)[address]05-23-2024 09:25-0400 Body ftaylb973.32 kgRene Cortez MD Work Phone: 2([phone])175-[address] [place], [place] 9504305-23-2024 09:25-0400 Diastolic blood mngwnozc50 mm[Hg]Rene Cortez MD Work Phone: 1(926)[address]05-23-2024 09:25-0400 Heart rate68 /minRene Cortez MD Work Phone: 1(276)[address]05-23-2024 09:25-0400 Systolic blood xjvgvyzh360 mm[Hg]Rene Cortez MD Work Phone: [phone])[address]02-03-2024 10:23-0500 Body mass index (BMI) [Ratio]35.28 kg/m2Pahellen Snyder DO Work Phone: [facility]'sAdjpcyvhsg50-71-3111 10:23-0500Body temperature 97.81 [degF]Hosea Snyder DO Work Phone: [facility]'sTpcivunvzx33-69-8811 10:23-0500Body .23 kgPaul Claudio SORENSON Work Phone: [facility]'sSukrmdjadu70-93-2521 10:23-0500Diastolic blood ghpvwuvh47 mm[Hg]Hosea Snyder DO Work Phone: [facility]'sBryadckeyt79-36-1305 10:23-0500Heart rate86 /min Hosea Snyder DO Work Phone: [facility]'sKfbqnpyzfm78-38-2952 10:23-0500Respiratory rate18 /minPahellen Snyder DO Work Phone: [facility]'sBclbtzrkjo52-45-6678 10:23-0220SrQ8% (BldA) [Mass fraction]94 %Hosea Snyder DO Work Phone: [facility]'sSwkueuiwqz17-09-2830 10:23-0500Systolic blood ophcdlot114 mm[Hg]Hosea Snyder DO Work Phone: [facility]'sRevqiydznq61-67-9433 14:25-0500Body temperature 97.7 [degF]MD Sera Flower Work Phone: [facility]01-18-2024 14:25-0500 Diastolic blood zkehyehy81 mm[Hg]MD Sera Flower Work Phone: [facility]01-18-2024 14:25-0500 Heart rate78 /minMD Sera Flower Work Phone: [facility]01-18-2024 14:25-0500 Respiratory rate20 /minMD Sera Flower Work Phone: [facility]01-18-2024 14:25-0500 SaO2% (BldA) [Mass fraction]95 %MD Sera Flower Work Phone: [facility]01-18-2024 14:25-0500 Systolic blood kokdqwzi170 mm[Hg]MD Sera Flower Work Phone: [facility]01-18-2024 11:48-0500 Body mptnof699.72 cmMD Sera Flower Work Phone: [facility]01-18-2024 11:48-0500 Body wllmiy083.9 kgMD Sera Flower Work Phone: [facility]10-27-2023 09:34-0400 Body ufeobn661.7 cmRene Cortez MD Work Phone: [facility]10-27-2023 09:34-0400 Body mass index (BMI) [Ratio]35.12 kg/s9OmcxyqRene Cortez MD Work Phone: [phone]10-27-2023 09:34-0400 Body zoojjd195.78 kgRene Cortez MD Work Phone: [facility]10-27-2023 09:34-0400 Diastolic blood bbkkemhr00 mm[Hg]Rene Cortez MD Work Phone: [facility]10-27-2023 09:34-0400 Heart rate60 /minRene Cortez MD Work Phone: [facility]10-27-2023 09:34-0400 Systolic blood bmjupliw418 mm[Hg]Rene Cortez MD Work Phone: [facility]04-13-2023 11:31-0400 Body vwatwz007.72 cmRobert Arlene Flower Work Phone: 1(256) [phone]-Jchjdlfbfv-[place] 250 DO Work Phone: 1(230) 539-985604-13-2023 11:31-0400Body mass index (BMI) [Ratio]36.8 kg/k3ZfdwdnSera Flower Work Phone: [phone]-Xcjjebvdvv-[place] 250 DO Work Phone: 1(917) 102-526304-13-2023 11:31-0400Body surface area Derived from formula2.22 t3Icmgknfarhad Flower Work Phone: [phone]-Ucpxgkyxvv-[place] 250 DO Work Phone: 1(934) 501-921804-13-2023 11:31-0400Body svzdai420.77 kgSera Flower Work Phone: mp688-9637IZ-Pvaclcmygv-[place] 250 DO Work Phone: 1(882) 363-535004-13-2023 11:31-0400Diastolic blood cwalebap69 mm[Hg] Sera Flower Work Phone: mp314-7335QQ-Sxmqggeffj-[place] 250 DO Work Phone: 1(201) 616-572104-13-2023 11:31-0400Heart rate76 /minSera Flower Work Phone: mp208-9611TW-Ivokeagkik-[place] 250 DO Work Phone: 1(613) 778-641204-13-2023 11:31-0400Systolic blood ssmdzchu328 mm[Hg] Sera Flower Work Phone: 1(192) [phone]-Txvgiwtetb-[place] 250 DO Work Phone: 1(605) 497-416104-11-2022 14:04-0400Body pvvaph017.72 cmRobert Arlene Flower Work Phone: mp654-6859GL-Yfsrx [facility] 250 DO Work Phone: 1(317) 804-178104-11-2022 14:04-0400Body mass index (BMI) [Ratio] 36.49 kg/z0VeuoqvSera Flower Work Phone: 1(532) [phone]-Bfnqd [facility] 250 DO Work Phone: 1(460) 827-727804-11-2022 14:04-0400Body surface area Derived from formula2.21 l0SnijbzSera Flower Work Phone: mp963-0295PK-Lxihe [facility] 250 DO Work Phone: 1(974) [phone] 14:04-0400Body owyrob410.86 kgSera Flower Work Phone: mp703-3218BI-Zothj [facility] 250 DO Work Phone: 1(897) 898-790104-11-2022 14:04-0400Diastolic blood npkonaye70 mm[Hg] Sera Flower Work Phone: mp706-2478QF-Dqfxu [facility] 250 DO Work Phone: 1(200) 751-432004-11-2022 14:04-0400Heart rate70 /minRobfarhad Flower Work Phone: [phone]-Qjnkr [facility] 250 DO Work Phone: 1(362) 605-103804-11-2022 14:04-0400Systolic blood idgedees415 mm[Hg] Sera Flower Work Phone: [phone]-Wjusj [facility] 250 DO Work Phone: Encounters Encounter DateEncounter TypeCare ProviderFacilityStart: 90-36-5362xrwfjoohxd John BAPTISTEFacility:EU PujayStart: 32-64-0147kvcricyzdiCuyxcsn P COOK Facility:EU PujayStart: 03-16-2025 End: 30-79-1231nveaczrsweRHNDMetroHealth Parma Medical Centertart: 12-09-2024 End: 74-29-0406muoqbufnjsIEWMMetroHealth Parma Medical Centertart: 12-02-2024 End: 74-38-1920dhkirfyeruJiiotcm P COOKFacility:EU PujayStart: 12-02-2024 End: 84-82-6831Jrjttdx encounter procedureJohn BAPTISTE [facility] [place] Start: 11-21-2024 End: 36-05-6892Tkloegq encounter procedureKiya Richmond APRN-Electrodiagnostics Work Phone: Start: 11-21-2024 End: 32-95-4881bnbizxzowoUtokrl Hill MD Work Phone: [facility] Work Phone: Start: 10-31-2024 End: 00-12-0887Wtmgcxu encounter procedureSera Flower MD Work Phone: [facility] Work Phone: Start: 10-31-2024 End: 71-08-7532dlfunmeemgEnchuv Hill MD Work Phone: [facility] Work Phone: Start: 10-24-2024 End: 08-09-9143Bqxcdy outpatient visit 25 Elaina Richmond [employer]IVER-[employer]TER Work Phone: uh FirelandsComment on above:BMI 33.0-33.9,adult (Primary Dx); Ischemic cardiomyopathyStart: 10-24-2024 End: 59-33-8654lqsbcglxtpSVINT K [facility] AmbulatoryStart: 10-16-2024 End: 55-55-7624Kdyyhragsb and management of inpatientSera Flower MD Work Phone: [facility] Work Phone: Start: 09-24-2024 End: 44-07-1321Iykejd outpatient visit 25 Alisha Mancuso NP Work Phone: [facility] IMComment on above:Gastroesophageal reflux disease without esophagitis (Primary Dx); Essential hypertension (CMS/HCC); Pure hypercholesterolemia (CMS/HCC); Chronic systolic (congestive) heart failure; Prediabetes; Coronary artery disease involving mi'kmaq coronary artery of mi'kmaq heart without angina pectoris (CMS/HCC); Severe persistent asthma, uncomplicated (CMS/HCC); Elevated PSA; BMI 36.0-36.9,adult; Morbid (severe) obesity due to excess calories (CMS/HCC); Medicare annual wellness visit, subsequent; ACP (advance care planning)Start: 09-24-2024 End: 95-97-9484Khivtrz encounter procedureSally Mancuso NP Work Phone: noms HealthcareStart: 09-24-2024 End: 16-20-0675cxqnqgwjapAPFSJose Juan TAMEZot AvailableStart: 08-26-2024 End: 44-99-5180teohnjsgymEvhagnl P COOKFacility:EU [place]kyStart: 08-18-2024 End: 34-98-4949rgdcnwmuwuTzthug X OrzechFacility:EU [place]kyStart: 08-15-2024 End: 47-02-2369pnqyvzchhaQcwdxeu P COOKFacility:EU [place]kyStart: 08-08-2024 End: 67-06-5745duxobuslaaXutptxf P COOKFacility:FTMCStart: 08-08-2024 End: 86-73-7375Tckepru encounter procedureGregory P COOK [facility] Start: 07-17-2024 End: 96-67-6020Ofjqeu flowsheetEmgaston Long MD Work Phone: NOAQ SWS DERMStart: 07-17-2024 End: 99-48-7938Gnrgti flowsheetEmgaston Long MD Work Phone: NOMS SWS DERMStart: 07-17-2024 End: 40-65-9867Yztaaz outpatient new 45 minutesEmgaston Long MD Work Phone: noms SWS DERMComment on above:Epidermal inclusion cyst (Primary Dx); Erythema intertrigoStart: 07-17-2024 End: 86-85-5094pyehknytvoBRMPN A PETITTINot AvailableStart: 07-02-2024 End: 50-16-4797Oqrqhw outpatient visit 25 minutesGina R Risaliti FAN MAIL CLERK Work Phone: noms SWS IMComment on above:Chronic obstructive pulmonary disease, unspecified COPD type (CMS/HCC) (Primary Dx); Bronchiectasis without complication (CMS/HCC); Rash; Skin lesion of back; Sebaceous cystStart: 07-02-2024 End: 21-60-3897amqwdimsphAJER R RISALITINot AvailableStart: 06-23-2024 End: 13-19-2471xzckjytrinWxckdnv P COOKFacility:EU [place]kyStart: 06-23-2024 End: 52-53-0290Kuyceav encounter procedureGregcalderon Murtaza BAPTISTE [facility] Start: 05-15-2024 End: 52-55-9376Bcbncs outpatient visit 25 minutesRene Cortez MD Work Phone: uh [facility] HospitallandsComment on above:Coronary artery disease involving mi'kmaq coronary artery of mi'kmaq heart without angina pectoris (Pr imary Dx); Essential hypertension; Ischemic cardiomyopathy; Mixed hyperlipidemia; Status post coronary artery stent placement; Former smoker; BMI 36.0-36.9,adult; Class 2 obesityStart: 05-15-2024 End: 72-83-1726lobmywjzrwJMLOKM M [facility] AmbulatoryStart: 05-07-2024 End: 87-91-5969sjwqacllvsVNTUTZB A NELSONNot AvailableStart: 05-07-2024 End: 26-16-9896Ublrvg outpatient visit 15 minutesGurjit Busby NP Work Phone: noms [facility] UCComment on above:Non-recurrent acute serous otitis media of right ear (Primary Dx)Start: 04-28-2024 End: 56-65-2684jswnroqeivHFNathaly COOKFacility:EU uskyStart: 04-28-2024 End: 22-83-7227Oxwdvpe encounter procedureJENNIFER E ADRIÁN [facility] Start: 04-25-2024 End: 27-08-9405Iwx Drop offJENNIFER E ADRIÁN [facility] Start: 04-25-2024 End: 01-88-1297lmnmkwymkdZUNathaly HUMPHRIESRYFacility:EU uskyStart: 04-25-2024 End: 29-91-8197Jyxpcvg encounter procedureJENNIFER E ADRIÁN [facility] Start: 04-16-2024 End: 52-83-0066vbnqaffncmIZKenyatta COOKFacility:EU yStart: 04-16-2024 End: 80-56-8778Vyaualb encounter procedureJEDORENE COOK [facility] Start: 03-26-2024 End: 08-07-8983Iveetn outpatient visit 25 minutesSera Flower MD Work Phone: noms SWS IMComment on above:Essential hypertension (CMS/HCC) (Primary Dx); Chronic systolic congestive heart failure (CMS/HCC); Coronary artery disease involving mi'kmaq coronary artery of mi'kmaq heart without angina pectoris (CMS/HCC); Chronic obstructive pulmonary disease, unspecified COPD type (CMS/HCC); Pure hypercholesterolemia (CMS/HCC); Prediabetes; Elevated PSA; Benign prostatic hyperplasia without urinary obstruction; Bacterial pneumonia; Sinus drainageStart: 03-26-2024 End: 65-48-3787jcenbfibxnVIUDSW L HILLNot AvailableStart: 14-24-4712ephesqkvzk NUBIA COOKFacility:EU Bismarktart: 02-27-2024 End: 38-81-0947Lgbelczyicsg care manage srvc 7 day dischargeGina R Risaliti FAN MAIL CLERK Work Phone: noms SWS IMComment on above:Sepsis, due to unspecified organism, unspecified whether acute organ dysfunction present (CMS/HCC) ( Primary Dx); Pneumonia of right middle lobe due to infectious organism; Hyponatremia; Essential hypertension (CMS/HCC); Chronic systolic congestive heart failure (CMS/HCC); Coronary artery disease involving mi'kmaq coronary artery of mi'kmaq heart without angina pectoris (CMS/HCC); Gastroesophageal reflux disease without esophagitis; Benign prostatic hyperplasia without urinary obstructionStart: 02-27-2024 End: 29-99-4678itchqpokjwWQPB R RISALITINot AvailableStart: 02-18-2024 End: 59-83-4174Uqnixnczn Result Delfino Britt MD Work Phone: noms External Department UnsolicitedStart: 02-18-2024 End: 02-72-2553Ygocrcvih Result EncounterSfabiola Britt MD Work Phone: noms External Department UnsolicitedStart: 02-17-2024 End: 25-37-2112Kicbcnmzo Result EncounterGeneric External Data ProviderNOMS External Department UnsolicitedStart: 02-17-2024 End: 47-82-5872Anuslmmzw Result EncounterGeneric External Data ProviderNOMS External Department UnsolicitedStart: 02-15-2024 End: 19-37-1708Rqlyrpnaf Result EncounterGeneric External Data ProviderNOMS External Department UnsolicitedStart: 02-15-2024 End: 11-24-6956Qryjdhdge Result EncounterGeneric External Data ProviderNOMS External Department UnsolicitedStart: 01-18-2024 End: 30-37-3599Seiqnpbbr Result EncounterGeneric External Data ProviderNOMS External Department UnsolicitedStart: 01-18-2024 End: 07-82-4576Ganwpwdtb Result EncounterGeneric External Data ProviderNOMS External Department UnsolicitedStart: 01-17-2024 End: 35-98-5507Ahvwwpeto Result EncounterGeneric External Data ProviderNOMS External Department UnsolicitedStart: 01-17-2024 End: 46-55-7734Fugqscxsl Result EncounterGeneric External Data ProviderNOMS External Department UnsolicitedStart: 2024 End: 89-53-5917svwdfqzerkAGMTUFH L DIDIONNot AvailableStart: 10-18-2023 End: 30-34-9131Uqksat outpatient visit 25 minutesRene Cortez MD Work Phone: uh [facility] HospitalComasp[facility]ton[facility] on above:Coronary artery disease involving mi'kmaq coronary artery of mi'kmaq heart without angina pectoris (Pr imary Dx); Essential hypertension; Mixed hyperlipidemia; Ischemic cardiomyopathy; Status post coronary artery stent placement; Class 2 obesity with body mass index (BMI) of 35.0 to 35.9 in adult, unspecified obesity type, unspecified whether serious comorbidity present; Former smokerStart: 06-30-2023 End: 30-04-3280Jnfiiz outpatient visit 25 minutesHosea Jose Claudio DO Work Phone: noms [facility] UCComment on above:Acute exacerbation of chronic obstructive pulmonary disease (CMS/HCC) (Primary Dx)Start: 06-14-2023 End: 31-50-9803Xmyfbwwql department patient visitMD Sera Flower Work Phone: [facility]-Emergency Room Work Phone: Start: 03-23-2023 End: 67-27-4542Rvtowk outpatient visit 25 minutesRene Cortez MD Work Phone: FirelandsComment on above:Coronary artery disease involving mi'kmaq coronary artery of mi'kmaq heart without angina pectoris; Essential hypertension; Mixed hyperlipidemia; Ischemic cardiomyopathy; Status post coronary artery stent placement; Class 2 obesity with body mass index (BMI) of 35.0 to 35.9 in adult, unspecified obesity type, unspecified whether serious comorbidity presentStart: 02-06-2023 OtherSera Jimenez Ching Work Phone: [phone]-[facility]uwWood[facility] 250 DO Work Phone: Start: 02-05-2023 End: 70-22-9584lqfbbeyygxIY Sera Flower Work Phone: [facility] Work Phone: Start: 02-05-2023 End: 58-41-1320Kbjibns encounter procedureMD Sera Flower Work Phone: [facility]-Electrodiagnostics Work Phone: Start: 25-43-0337sycmdbhewsVa. Sera [place] Facility:[id number]: 97-32-6620JOZJWEqaxup L Ching Work Phone: [phone]-Wdzdc [facility] 600 DO Work Phone: Start: 76-58-0107GpkhtXtqxpd L Ching Work Phone: [phone]-Dxexv [facility] 250 DO Work Phone: Start: 15-92-2251Oirjo UpdateSera Flower Work Phone: [phone]-Ygwuq [facility] 250 DO Work Phone: Start: 35-60-6214svhcjnvhqrTc. Sera Flower Facility:[id number]: 35-49-2261bbjxfbvvjtTc. Sera FlowerFacility:9844Start: 11-14-2022 End: 49-96-3868wofqobrntjHYCVRMMCH HWANGFacility:[facility] Hospitaltart: 11-14-2022 End: 25-36-1695Qmkpubn encounter procedureDeandra Bender MD Work Phone: OphthalmologyComment on above:Clonic hemifacial spasm, right (Primary Dx)Start: 63-89-6979Trrodh outpatient visit 25 minutesSera Flower Work Phone: [phone]-Kccarkvdrk-[place] 250 DO Work Phone: Start: 39-50-0190ykpxevmpyyJgodyp Cortez Facility:[id number]: 08-08-2022 End: 26-59-5472wrpnktwgnfEZWEBKHHP HWANGFacility:[facility] Hospitaltart: 08-08-2022 End: 24-87-9167Ofpfkxz encounter procedureDeandra Bender MD Work Phone: OphthalmologyComment on above:Clonic hemifacial spasm, right (Primary Dx)Start: 28-09-9364Lyguqwpib encounterDeandra Bender MD Work Phone: Internal Medicine LorainComment on above:OrdersStart: 06-21-2022 End: 07-50-3347eivhgqjewkHOYELUEMT HWANGFacility:[facility] Hospitaltart: 06-21-2022 End: 03-72-9802Ttqcbvg encounter procedureDeandra Bender MD Work Phone: OphthalmologyComment on above:Clonic hemifacial spasm, right (Primary Dx); Paralytic strabismus; Jada's syndromeStart: 05-01-2022 End: 63-46-1668gjrfozqpdhJRAAB R HOLMESFacility:[facility] Hospitaltart: 05-01-2022 End: 50-33-2339Msjnjuw encounter procedureMau Randle OD Work Phone: OphthalmologyComment on above:Eyelid myokymia (Primary Dx); Dry eye syndrome of both eyes; Hyperopia of both eyes with astigmatism and presbyopiaStart: 26-63-1677Qfuqwq outpatient visit 25 minutesRobfarhad Flower Work Phone: [phone]-Anlpu [facility] 250 DO Work Phone: Procedures DateProcedureProcedure DetailPerforming ClinicianStart: 97-42-0417RW LHC & COR AngioSera Flower MD Work Phone: Start: 26-78-4128Fxgmo chest X-raySera Flower MD Work Phone: Start: 22-85-7087LmufngnpepCseycjp [place] Start: 15-30-5261OYTD STAIN EVALUATIONSfabiola Britt MD Work Phone: Start: 75-51-7081Jcsjxkxuvz [#/volume] in BloodShaiselam Britt MD Work Phone: Start: 35-62-0292WDQCS RESPIRATORY CULTURESfabiola Britt MD Work Phone: Start: 62-53-4768KYZAJ CULTURE 2Generic External Data ProviderStart: 54-40-0893TCAGT CULTURE 1Generic External Data ProviderStart: 74-65-5032GOBSH CULTURE 2Generic External Data ProviderStart: 96-48-5625AJZQM CULTURE 1Generic External Data ProviderStart: 21-79-2724DG ChestGeneric External Data ProviderStart: 38-34-3853KK PULMONARY FUNCTION TESTGeneric External Data ProviderStart: 81-74-1239Cjcer 1996 panel - Serum or PlasmaRene Cortez MD Work Phone: Start: 98-28-2981TSHI-CoV-2, Influenza & RSV (PCR)MD Sera Flower Work Phone: Start: 01-64-4975Kmqsy chest X-rayMD Sera Flower Work Phone: Start: 85-78-4589DhwcmeyiqqcwarsrNkcaoxd Provider ScanningStart: 91-42-0145Aufldtz of placement of stent for coronary artery diseaseStatus post coronary artery stent placementRene Cortez MD Work Phone: Start: 52-79-2497Rujrecbqbau [facility] innervated facial nrv Liliam Bender MD Work Phone: Start: 13-17-0838Norfrnppcxn [facility] innervated facial nrv Gia Huffman APRN.CNP Work Phone: Start: 68-16-9153WiypygznyalWqtl Bruner DO Work Phone: Colonoscope, device (physical [...] stentSera Flower MD Work Phone: Comment on above:s3Dtnetrk of placement of stent for coronary artery diseaseHistory of heart artery stentSlila Caraballo DO Percutaneous transluminal coronary angioplastySera Flower Work Phone: Placement of stent in coronary arterySera Flower Work Phone: Repair of shoulderRobfarhad Flower Work Phone: Plan of Treatment DateCare ActivityDetailAuthorStart: 50-93-7219Bqiahwntv for malignant neoplasm of colonNOMS HealthcareStart: 16-27-5277Vrkbz panelLipid PanelUnMercy Health St. [facility]: 72-05-6278GVtM/Tdap/Td Vaccines (2 - Td or Tdap) DTaP/Tdap/Td Vaccines (2 - Td or Tdap)[facility]: 03-30-2025 End: 43-90-2683Lnhfyao encounter agfycdzyj05/03/2025 9:15 AM EST Office Visit [facility] [address] [place] [address] Sera Flower MD [address] [place] [address] [facility] IMStart: 03-23-2025 End: 12-21-4592GXA W Auto Differential panel - BloodCBC and differential Lab Routine Essential hypertension (CMS/HCC) Expected: 03/23/2025 (Approximate), Ex[facility]: [facility]25[facility] Work Phone: Comment on above:Expected: 03/23/2025 (Approximate), Expires: 09/19/2025Start: 03-23-2025 End: 34-26-4120Lgbllhaxjugas metabolic 2000 panel - Serum or PlasmaComprehensive metabolic panel Lab Routine Essential hypertension (CMS/HCC) Expected: 03/23/2025 (Approximate), Expires: 09/19/2025[facility] HealthcareComment on above: Expected: 03/23/2025 (Approximate), Expires: 09/19/2025Start: 03-23-2025 End: 44-07-3281Cxcbrgkvef a1c with eagHemoglobin a1c with eag Lab Routine Prediabetes Expected: 03/23/2025 (Approximate), Expires: 09/19/2025[facility] HealthcareComment on above:Expected: 03/23/2025 (Approximate), Expires: 09/19/2025Start: 03-23-2025 End: 50-70-6933Cgmfz 1996 panel - Serum or PlasmaLipid panel Lab Routine Pure hypercholesterolemia (CMS/HCC) Expected: 03/23/2025 (Approximate), Expires: 09/19/2025NOMS HealthcareComment on above:Expected: 03/23/2025 (Approximate), Expires: 09/19/2025Start: 03-23-2025 End: 15-46-4640Qpvgbobrhcfk/Creatinine panel in random UrineMicroalbumin / creatinine urine ratio Lab Routine Essential hypertension (CMS/HCC) Expected: 03/23/2025 (Approximate), Expires: 09/19/2025[facility] HealthcareComment on above: Expected: 03/23/2025 (Approximate), Expires: 09/19/2025Start: 03-23-2025 End: 17-48-2845Onaiphrmmu complete panel - UrineUrinalysis with microscopic Lab Routine Essential hypertension (CMS/HCC) Expected: 03/23/2025 (Approximate), Expires: 09/19/2025NOWA HealthcareComment on above:Expected: 03/23/2025 (Approximate), Expires: 09/19/2025Start: 19-43-3609Yxziuxymt vaccination Influenza Vaccine (Season Ended)[facility]: [facility] End: 48-63-2990Xuvtmtc encounter /12/2025 10:20 AM EDT Office Visit [address] [id number] Rene Cortez MD [address] [place] [address] [address] [place] [address] [facility] 12-15-2024 End: 90-67-4650Hzqfmat encounter bcedsmyhw86/21/2025 1:50 PM EDT Office Visit [address] [place] [id number] Rene Cortez MD 3 [facility] [facility] [place], [place] [id number] [facility]: [facility] End: 08-39-3102VFF 12 LeadECG 12 Lead ECG Routine Ischemic cardiomyopathy Expected: 11/24/2024 (Approximate), Expires: 10/24/2025[facility] Work Phone: Comment on above:Expected: 11/24/2024 (Approximate), Expires: 10/24/2025Start: 11-24-2024 End: 57-49-0229YJ Heart TransthoracicTransthoracic Echo Limited Echocardiography Routine Ischemic cardiomyopathy Expected: 11/24/2024 (Approximate), Expires: 10/24/2026[facility] Service Area Work Phone: Comment on above:Expected: 11/24/2024 (Approximate), Expires: 10/24/2026Start: 10-31-2024 End: 22-46-0395Slrnv metabolic 2000 panel - Serum or PlasmaBasic Metabolic Panel Lab Routine Ischemic cardiomyopathy Expected: 10/31/2024 (Approximate), s: 10/24/2025[facility] Work Phone: Comment on above:Expected: 10/31/2024 (Approximate), Expires: 10/24/2025Start: 63-83-1472RiufjwunhSalem Regional Medical Center CenterStart: 84-29-2627Pqopbiuc to cardiologistSalem Regional Medical Center CenterStart: 12-37-4172Qovmczwu admissionSalem Regional Medical Center CenterStart: 10-16-2024 [facility] CenterStart: 88-67-7349Towdbqymicm of Left Heart using Low Osmolar ContrastFluoroscopy of Left Heart using Low Osmolar Contrast [facility] CenterStart: 13-90-6627Ynnwtvlgtoi of Multiple Coronary Arteries using Low Osmolar ContrastFluoroscopy of Multiple Coronary Arteries using Low Osmolar ContrastSalem Regional Medical Center CenterStart: 20-78-6996Qakvyirshbl of Cardiac Sampling and Pressure, Left Heart, Percutaneous ApproachMeasurement of Cardiac Sampling and Pressure, Left Heart, Percutaneous ApproachSalem Regional Medical Center CenterStart: 09-24-2024 End: 81-30-7443Xfwqe metabolic 1998 panel - Serum or PlasmaBasic metabolic panel Lab Routine Chronic systolic (congestive) heart failure Expected: 09/24/2024 ( Approximate), Expires: 12/24/2024NOW[facility] HealthcareComment on above:Expected: 09/24/2024 (Approximate), Expires: 12/24/2024Start: 09-24-2024 End: 00-61-9820Cckgcuz encounter zbvqzaeue05/30/2025 1:30 PM EDT Office Visit [facility] [address] [place] [phone] Sally Mancuso NP [address] [place] [address] [facility] IMStart: 04-25-2025Medicare Annual Wellness (AWV)Medicare Annual Wellness (AWV)[facility] HealthcareStart: 07-17-2024 End: 81-16-7911Vcvjevi encounter rjxbzoiid74/20/2025 10:35 AM EST Office Visit [facility] [address] [place] [phone] Marybeth Long MD [address] [place] [address] Skin lesion of back; Sebaceous cystNOMS [facility] Comment on above:Skin lesion of back; Sebaceous cystStart: 05-15-2024 End: 88-39-2993Uxezspw encounter /19/2024 9:10 AM EST Office Visit [facility] [address] [facility] [address] [place] [phone] Rene Cortez MD [address] [place] [address] [facility]: 04-25-2024 End: 22-12-1436QY Chest 2 ViewsXR chest 2 views Imaging Routine Pneumonia of right middle lobe due to infectious organism Expected: 04/25/2024, Expires: 02/26/2025[facility] Work Phone: Comment on above:Expected: 04/25/2024, Expires: 02/26/2025Start: 03-26-2024 End: 02-45-0934Ivzqubv encounter ilfrizrng58/30/2024 1:00 PM EDT Office Visit [facility] [address] [place] [phone] Sera Flower MD [address] [place] [address] [facility]: 59-71-6201FlwkwwfrxhsfizuyArhpkchveuemjr [facility]: 02-27-2024 End: 17-60-1912Vmaqikl encounter ffejjrmse89/02/2024 10:45 AM EDT Office Visit [facility] [address] [place] [address] Sally Mancuso NP [address] [place] [address] [facility] IMStart: 78-66-0938XCDXZ-19 Vaccine ( season)COVID-19 Vaccine ( season)[facility] Start: 99-40-0902Xsxineldp vaccinationUnMercy Health St. [facility]: 10-18-2023 End: 58-32-8601Opmjqnr encounter xdfzocrpv48/23/2024 9:30 AM EDT Office Visit [place] [address] [facility] [address] [place] [phone] Rene Cortez MD [address] [place] [address] [facility]: 09-20-2023 End: 23-12-2311Oyfvqou encounter cxuvzzloa42/25/2024 1:00 PM EDT Office Visit [facility] [address] [place] [address] Sera Flower MD [address] [place] [address] [facility] IMStart: 03-23-2023 End: 74-93-9158Yzfbgun aminotransferase [Enzymatic activity/volume] in Serum or Plasma by With P-5'-PAlanine Aminotransferase Lab Routine Coronary artery disease involving mi'kmaq coronary artery of mi'kmaq heart without angina pectoris Essential hypertension Mixed hyperlipidemia Ischemic cardiomyopathy Status post coronary artery stent placement Class 2 obesity with body mass index (BMI) of 35.0 to35.9 in adult, unspecified obesity type, unspecified whether serious comorbidity present Expected: 03/23/2023 (Approximate), Expires: 03/23/2024 [facility] Work Phone: Comment on above:Expected: 03/23/2023 (Approximate), Expires: 03/23/2024Start: 03-23-2023 End: 11-16-0598Anazvyzvt aminotransferase [Enzymatic activity/volume] in Serum or Plasma by With P-5'-PAspartate Aminotransferase Lab Routine Coronary artery disease involving mi'kmaq coronary artery of mi'kmaq heart without angina pectoris Essential hypertension Mixed hyperlipidemia Ischemic cardiomyopathy Status post coronary artery stent placement Class 2 obesity with body mass index (BMI) of 35.0 to 35.9 in adult, unspecified obesity type, unspecified whether serious comorbidity present Expected: 03/23/2023 (Approximate), Expires: 03/23/2024 [facility] Work Phone: Comment on above:Expected: 03/23/2023 (Approximate), Expires: 03/23/2024Start: 03-23-2023 End: 04-83-1183Kmdav metabolic 2000 panel - Serum or PlasmaBasic Metabolic Panel Lab Routine Coronary artery disease involving mi'kmaq coronary artery of mi'kmaq heart without angina pectoris Essential hypertension Mixed hyperlipidemia Ischemic cardiomyopathy Status post coronary artery stent placement Class 2 obesity with body mass index (BMI) of 35.0 to 35.9 in adult, unspecified obesity type, unspecified whether serious comorbidity present Expected: 03/23/2023 (Approximate), Expires: 03/23/2024[facility] Work Phone: Comment on above:Expected: 03/23/2023 (Approximate), Expires: 03/23/2024Start: 03-23-2023 End: 46-38-7705CEL panel - Blood by Automated countCBC Lab Routine Coronary artery disease involving mi'kmaq coronary artery of mi'kmaq heart without angina pectoris Essential hypertension Mixed hyperlipidemia Ischemic cardiomyopathy Status post coronary artery stent placement Class 2 obesity with body mass index (BMI) of 35.0 to 35.9 in adult, unspecified obesity type, unspecified whether serious comorbidity present Expected: 03/23/2023 (Approximate), Expires: 03/23/2024[facility] Work Phone: Comment on above:Expected: 03/23/2023 (Approximate), Expires: 03/23/2024Start: 03-23-2023 End: 33-60-1125Vlqxr 1996 panel - Serum or PlasmaLipid Panel Lab Routine Coronary artery disease involving mi'kmaq coronary artery of mi'kmaq heart without angina pectoris Essential hypertension Mixed hyperlipidemia Ischemic cardiomyopathy Status post coronary artery stent placement Class 2 obesity with body mass index (BMI) of 35.0 to 35.9 in adult, unspecified obesity type, unspecified whether serious comorbidity present Expected: 03/23/2023 (Ap proximate), Expires: 03/23/2024[facility] Work Phone: Comment on above:Expected: 03/23/2023 (Approximate), Expires: 03/23/2024Start: 85-30-2046UFT, Provider: Rene Cortez, Status: Pen, Time: 9:20 AMFUV, Provider: Rene Cortez, Status: Pen, Time: 9:20 AM SW-Gnyqihojpm-[address]ztw[address] DO Work Phone: Start: 99-34-6300WHVRG-19 Vaccine ( season) COVID-19 Vaccine ( season)[facility] CenterStart: 88-28-6169Ciatdxvex vaccinationSt. Anthony's Hospitaltart: 12-13-9254HRF, Provider: Rene Cortez, Status: Pen, Time: 8:30 AMFUV, Provider: Rene Cortez, Status: Pen, Time: 8:30 AM-[facility] [address] DO Work Phone: Start: 03-08-2023Medicare Annual Wellness Visit Medicare Annual Wellness Visit (AWV)[facility]: 46-33-6957MOUNDMZ DIRECTIVE DISCUSSIONADVANCE DIRECTIVE DISCUSSIONSt. Anthony's Hospitaltart: 22-60-3495AFJNTWBZOH ASSESSMENTDEPRESSION ASSESSMENTSt. Anthony's Hospitaltart: 12-30-7170Ghryhihdp vaccinationINFLUENZA (#1)[facility]: 50-21-0407WKYJNFA DIRECTIVE DISCUSSIONADVANCE DIRECTIVE DISCUSSIONSt. Anthony's Hospitaltart: 40-30-7511FIJQKDHWUE ASSESSMENTDEPRESSION ASSESSMENTSt. Anthony's Hospitaltart: 16-17-5357Admheisjw aortic aneurysm screeningAbdominal Aortic Aneurysm (AAA) ScreeningAshtabula General Hospital: 2018 PNEUMOCOCCAL: 65+ (1 - PCV)PNEUMOCOCCAL: 65+ (1 - PCV)[facility]: 49-54-9757Ldfyzn Vaccines (2 of 3)Zoster Vaccines (2 of 3)[facility]: 71-72-6146IPZ High Risk: (Elderly (60+) or Population) (1 - Risk 60-74 years 1-dose series)RSV High Risk: (Elderly (60+) or Population) (1 - Risk 60-74 years 1-dose series)[facility]: 00-64-7517MEU patients and/or patients aged 60+ years (1 - 1-dose 60+ series)RSV patients and/or patients aged 60+ years (1 - 1-dose 60+ series)[facility]: 74-79-1277DDNQTEAH VACCINE (1 of 2)SHINGRIX VACCINE (1 of 2)[facility]: 1998 COLOGUARD (FIT-DNA)COLOGUARD (FIT-DNA)[facility]: 1998 ColonoscopyCOLONOSCOPYSt. Anthony's Hospitaltart: 85-29-3118MRHZNXTIJI CANCER SCREENINGCOLORECTAL CANCER SCREENINGSt. Anthony's Hospitaltart: 24-37-1381ZT COLONOGRAPHYCT COLONOGRAPHYCleAvita Health System Galion Hospitaltart: 21-59-0152CQTDNKAS SCREEN DIABETES SCREENSt. Anthony's Hospitaltart: 80-76-3867INXLW OCCULT BLOODFECAL OCCULT BLOODSt. Anthony's Hospitaltart: 73-35-5411QUZJOWKATHJNKUQZRLLCNLDWIYNsiyonmoy Clinic Start: 40-24-5527LIBGY SCREENLIPID SCREENSt. Anthony's Hospitaltart: 39-24-8661Ojzmv microalbumin profileDTAP,TDAP,TD (1 - Tdap)[facility]: 1971 Diabetes mellitus screeningDiabetes ScreeningCrystal Clinic Orthopedic Center Start: 44-92-9016CDIQXGDUE C SCREENINGHEPATITIS C SCREENINGCleveland Clinic [facility] Start: 65-47-8738Ovajjuobq C screeningHepatitis C ScreeningAshtabula General Hospital: 56-01-9197GBKUG-19 VACCINE (#1)COVID-19 VACCINE (#1)[facility]: 70-23-4254Yxuxtgmygr measurementCreatinine [facility]: 88-32-5034Ozbhk panelLipid PanelAshtabula General Hospital: 1953Medicare Annual Wellness VisitMedicare Annual Wellness Visit (AWV)[facility]: 1955 Potassium measurementPotassium [facility]: 36-65-3755Cqfrmrtmb for malignant neoplasm of colonCrystal Clinic Orthopedic CenterBasic metabolic 1998 panel - Serum or PlasmaBasic metabolic panel Lab Routine Hyponatremia Essential hypertension (CMS/HCC) Ordered: 02/27/2024[facility] HealthcareComment on above:Ordered: 02/27/2024LOOD CULTURE 1BLOOD CULTURE 1 Lab Routine 02/15/2024 4:07 PM EDTNOMS HealthcareBLOOD CULTURE 1BLOOD CULTURE 1 Lab Routine 02/17/2024 10:40 AM EDTNOMS HealthcareBLOOD CULTURE 2BLOOD CULTURE 2 Lab Routine 02/15/2024 4:14 PM EDTNOMS HealthcareBLOOD CULTURE 2BLOOD CULTURE 2 Lab Routine 02/17/2024 11:00 AM EDTNOWA HealthcareLOWER RESPIRATORY CULTURELOWER RESPIRATORY CULTURE Lab Routine 02/18/2024 7:25 AM EDTCED[facility] Healthcare Work Phone: End: 64-19-9455Osq brain brain stem w/o w/contrast materialMRI BRAIN WO/W IVCON Radiology Routine Paralytic strabismus 1 Occurrences starting 06/21/2022 until 07/21/2023[facility] Work Phone: Comment on above:1 Occurrences starting 06/21/2022 until 07/21/2023 End: 51-98-4301Fsk orbit face & neck w/o & w/contrast matrlMRI SOFT TISSUE NECK WO/W IVCON Radiology Routine 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 Work Phone: Comment on above:Ordered: 02/27/2024[facility] Immunizations Immunization DateImmunizationNotesCare GxcpwzcyLibuyylz14-00-4220Uryzttac trivalent influenza vaccine, adjuvanted, preservative freeSera Flower Work Phone: [phone]-NvsjrAl[place] [address] [place] Work Phone: [phone]mno virus vaccine, unspecified formulationRene Cortez MD Work Phone: [facility]11-01-2019influenza virus vaccine, unspecified formulationSera Jimenez [employer] Work Phone: [phone]-TkrnsEssentia Health 250 DO Work Phone: [phone]n virus vaccine, unspecified formulationDecatur Health Systems [facility]03-22-2019influenza, injectable, quadrivalent, preservative freeDonna Richmond [employer] Work Phone: [facility] Work Phone: [phone], seasonal, injectable, preservative freeSera Jimenez [place] Work Phone: [phone]-CxeykAlison [place] [address] DO Work Phone: [phone]htcultfil conjugate vaccine, 13 valent Sera Jimenez [place] Work Phone: [phone]-LtwoqAlison [place] [address] DO Work Phone: [phone]zdepekrrt polysaccharide vaccine, 23 valentRmartha Jimenez [place] Work Phone: [phone]-JjvjiAlison [place] [address] DO Work Phone: [phone]d toxoid, reduced diphtheria toxoid, and acellular pertussis vaccine, adsorbedSaint Joseph London Work Phone: [phone]-XhtxfAlison [place] [address] DO Work Phone: [phone]z, injectable, quadrivalent, preservative Adelsoonna Richmond [employer] Work Phone: [facility] Work Phone: [phone] vaccine, liveRclark regional medical centerdavid Jimenez [place] Work Phone: [phone]-LspouAlison [place] [address] DO Work Phone: [phone]p, seasonal, injectable, preservative freeDonna Richmond [employer] Work Phone: [facility] Work Phone: [phone], seasonal, injectable, preservative freeDonna Richmond [employer] Work Phone: [facility] Work Phone: [phone], seasonal, injectable, preservative Adelsojany Richmond [employer] Work Phone: [facility] Work Phone: [phone]dm virus vaccine, unspecified formulationKiya Richmond [employer] Work Phone: [facility] Work Phone: [phone]xmzr polysaccharide vaccine, 23 valentRobert L Hill Work Phone: [phone]-HrjwhAitkin Hospital-[place] [address] DO Work Phone: [phone]pejhslzxo vaccine, unspecified formulationHosea Carmener DO Work Phone: noSaint Francis Medical CenterIzczfzznsy32-88-2978blfqpxzih virus vaccine, unspecified formulationKiya Richmond [employer] Work Phone: [facility] Work Phone: [phone]vbsrft virus vaccine, unspecified formulationKiya Richmond [employer] Work Phone: [facility] Work Phone: [phone]k virus vaccine, unspecified formulationRene Cortez MD Work Phone: [facility] Work Phone: [phone]b virus vaccine, unspecified formulationKiya Richmond [employer] Work Phone: [facility] Work Phone: [phone]jz, seasonal, injectable, preservative Jimena Cortez MD Work Phone: [facility] Work Phone: [phone](adult) unspecified formulation; Translations: [Td(adult) unspecified formulation]Hosea Snyder DO Work Phone: noSaint Francis Medical CenterQibdofxhgv63-85-2805stylvvf toxoid, unspecified formulationKiya Richmond [employer] Work Phone: [facility] Work Phone: influenza virus vaccine, unspecified formulationSera Flower Work Phone: [phone]-Qgpnc [facility] [address] DO Work Phone: Comment on above:Mar Payers DatePayer CategoryPayerPolicy [id number] of Defense ( and others)[id number] of Defense ( and others)[id number]-asf [id number] Health Insurance 1.2.840.940751.1.13.693.2.7.3.732742.69776-30-6034XLBJLWG () 1.2.840.506747.1.13.693.2.7.9.517565.384345.19482-39-6691Amqtoayear of Defense ( and others)1.2.840.348127.1.13.647.2.7.3.394150.315 2023Medicare (Managed Care)1.2.840.068271.1.13.693.2.7.9.471781.490090.31045-96-1180ILWIVVG For Life (TFL)1.2.840.779244.1.13.647.2.7.9.615339.461495.95070-66-5700 Department of Defense ( and others)[id number] 2022 Department of Defense ( and others)[id number] Medicare1.2.840.715161.1.13.159.2.7.3.429850.315 [id number] 2.16.840.1.216651.3.579.2.24408-44-2384Gnkbswb [id number] 2.16.840.1.767059.3.579.2.90727-37-7754Quyztae47783521 2.16.840.1.228988.3.579.2.167956-98-1959Ezvukwh45064239 2.16.840.1.149345.3.579.2.627884-62-8694Pjstkva3346011 2.16840.1.037222.3.579.2.665556-32-1574Jqxnlbe1074600 2.16.840.1.756996.3.579.2.457517-85-6240Jiwjnjv7562293 2.16.840.1.110858.3.579.2.716682-20-8593Vovnykj4138808 2.16840.1.705048.3.579.2.783244-09-7504Pcxrbgn3605067 2.16840.1.215133.3.579.2.362234-71-3348Ieryrxc1754735 2.16.840.1.555315.3.579.2.153656-44-8684Ohbbivw5891504 2.16.840.1.361140.3.57[id number] 2.16.840.1.924796.3.579.2.243128-30-0584Yvkynxn282405865 2.16840.1.337689.3.579.2.119443-16-5601Xfjqlxh67119734 2.16.840.1.333960.3.579.2.17716-93-4920Alyozer20921332 2.16840.1.171609.3.579.2.75812-56-7844Xotgyqg73575856 2.160.1.306070.3.579.2.23456-33-4962Fdtuguf43120739 2.16840.1.919214.3.579.2.06209-82-1729Nspydlk17974422 2..1.346380.3.579.2.59113-34-6883Yqgaetw80227496 2.0.1.330931.3.579.2.72583-88-0734Curvbmc28883165 2.0.1.755248.3.579.2.74676-94-1600Tvkekis38096154 2.0.1.471299.3.579.2.61909-68-1248Hxeptdg69539295 2..1.831204.3.579.2.22215-13-6385Omcmbkw85019812 2..1.486424.3.579.2.72064-43-0716Pfxzurt52918985 2.0.1.676358.3.579.2.52559-94-8558Ededwvh12549735 2.0.1.134650.3.579.2.901Zncddbs31399653 2.840.1.646338.3.579.2.531 Lppyglg23447311 2.840.1.959033.3.579.2.269Tbdqnqk63716770 2.840.1.347010.3.579.2.531 Social History DateTypeDetailFacilityStart: 03-23-2023 End: 81-93-9407Rp alcohol useNo alcohol useNOMS HealthcareComment on above:5 CUPS OF COFFEE DAILY;QUIT IN 1984;Start: 05-01-2022 End: 32-09-0395Xkbdodf smoking status NHISNever smoked tobaccoCleveland Clinic Avon Hospital Start: 05-01-2022 End: 82-42-2839Zuotsgr use and exposureSmokeless tobacco non-userSt. Anthony's Hospitaltart: 05-01-2022 End: 81-69-5917Asyepdu intakeEx-drinker (finding)[facility]: 97-34-4446Kjr Assigned At BirthNot on fileSt. Anthony's Hospitaltart: 10-15-2020 End: 09-78-9142Kfzorfd smoking status NHISEx-smoker (finding)[facility]: 05-78-5202Sez [facility]igned [facility] End: 94-72-3768Qtqrary of tobacco useCurrent smokerUnVan Wert County Hospital Work Phone: End: 23-99-8127Rgnzqdg of tobacco useCigarette SmokerUnVan Wert County Hospital Work Phone: Start: 03-23-2023 End: 43-76-0195Pcvndlx intakeLifetime non-drinker (finding)[facility] Work Phone: Start: 03-23-2023 End: 84-12-1849Xuyajob use panelNOMS HealthcareStart: 03-13-2023 End: 37-09-7033Qsuyxvbi to SARS-CoV-2 (event)Not sureUnVan Wert County HospitalStart: 93-68-0153Bpgswzj Commentcaffeine: coffee 5-6 cups a dayNOMS HealthcareStart: 20-23-9894Tjkvwo identityIdentifies as male gender (finding) [facility] HealthcareStart: 20-28-7948Vepzjbp smoking statusNeverExecutive [facility] of [facility] [place]Start: 10-18-2024 End: 19-12-6981HgfIpof (finding)[facility]: 97-53-1714CNNG Follow upSDOH Follow upOur [facility] Of Mercy [facility] Work Phone: Sexual OrientationExecutive Urology of [facility] Goals DatePatient GoalDesired Activity/State Functional Status DhemVajdcakrmqGunynjSqcxwdue00-54-5267Plqlasavyz statusPatient at Baseline [facility] Work Phone: [phone] 245-68380743838-07-6744Ewvobfm Health Questionnaire 2 item (PHQ-2) [Reported][facility] John'sOynbjswqxx34-28-2160Xkerpsavbm StatusN/AFParkwood Hospital01-27-2025Functional StatusN/AExecutive Urology of [place] 037762-02-2024Functional StatusN/AExec[facility] of [place] 037761-20-2024Functional StatusN/AExecutive Urology of [place] 037760-30-2024Patient Health Questionnaire 2 item (PHQ-2) [Reported][facility] Status TizoScpdvqfkuoIhomtyQvczkuvn30-52-0904Tjknbzpye functionCognitive Status Patient at BaselineOur [facility] Of Mercy Hospital Work Phone: Clinical Notes 05-01-2022 to 03-16-2025 Note Date & EdyrJtqfIzxxwlbc24-04-4218 [facility] Chief Complaint: [...] medical history of CHF (congestive heart failure) ([facility]), COPD (chronic obstructive pulmonary disease) ([facility]), Coronary artery disease, GERD (gastroesophageal [...] SGLT2 inhibitor and spironolactone (more content not included)...[facility]07-15-2025 Note [facility] Cardiology Clinic Note Chief Complaint: [...] medical history of CHF (congestive heart failure) ([facility]), COPD (chronic obstructive pulmonary disease) ([facility]), Coronary artery disease, GERD (gastroesophageal [...] for this visit: Coronary artery disease involving mi'kmaq coronary artery of mi'kmaq heart without angina pectoris (Primary) Comments: S/p PCI to LAD and mid/distal RCA 2009. Recent coronary angiogram September/2024 revealed patent the stent with totally occluded ramus and PLV branch of RCA Orders: - metoprolol succinate XL (Toprol-XL) 25 mg 24 hr tablet; Take 0.5 tablets (12.5 mg) by mouth once daily as directed. Do not crush or chew. (more content not included)...[facility]07-08-2025 Hospital Discharge instructions Patient Education 12/02/2024 [...] urethra. Follow these instructions at home: Take cyde-zqf-rokvwhz and prescription medicines only as told by [...] provider. Document Revised: 11/30/2021 Document Reviewed: 11/30/2021 [facility] Patient Education 2023 [employer]. Follow Up Care 08/26/2024 08:43:50 With:BENNY SHELLEY, John Hauser, URL Address: [address] [place] [address]- When: Unknown Comments:6 mos w/ PSA and PVR [facility] [place] 772891-22-4104 NotePatient Education Urology Benign Prostatic Hyperplasia Benign [...] Follow these instructions at home: ??? Take pwrm-yif-kzmdiwf and prescription medicines only as told by [...] symptoms do not get (more content not included)...[facility]05-30-2025 History of Present illness Narrative* Kiya Richmond APRN-STOCK CUTTER - 10/24/2024 10:00 AM EDT Chief Complaint [...] September 2024 had a 7-day hospitalization at [facility] due to pneumonia, sepsis. Although I do not have a report, there is documentation that echo showed LVEF of 25% with global hypokinesis. Believe he was treated for acute decompensated heart failure. He was then transferred [place] [facility] and seen by Dr. Davis. A August 17, 2024 cardiac cath showed a patent LAD and diagonal stenting, ramus occluded, mid/distal RCA patent stent, PLV occluded. LVEF 20%. At time of discharge she was to be placed on Entresto, Aldactone, Farxiga and increased dose carvedilol, Lasix. reports that he was only home for approximately 4 hours and he returned back to [facility] as of breath, he was hospitalized [...] times daily omega-3 fatty acids-fish oil (One-Per-Day Alexandria-3) 684-1,200 mg capsule Take as directed omeprazole [...] & reported 25% with global hypokinesis at [facility] (no reports). Prior February 2023 TTE [...] day of office visit Kiya Richmond MSN, WILLIAN-STOCK CUTTER, PMHNP-[facility] [place], [place] Please excuse any errors in grammar or translation related to this dictation. Voice recognition software was utilized to prepare this document. documented in this [facility] Work Phone: 1(783) 577-419505-30-2025 Instructions* Patient Instructions* NABIL Garcia - 10/24/2024 [...] day of office visit documented in this [facility] Work Phone: 1(367) 200-714205-24-2025 Progress note Author Charito Rodriguez [facility] InstituteNote Date/TimeMay 2024 1:[address] [address] Cardiology Progress Note Signed Patient: Demarcus Calderon MR#: [id number] : 1955 Acct:[id number] Age/Sex: 69 / M Adm Date: 5 Loc: Room: [address] [place] [address] Type: ADM IN Attending Dr: Vincenzo Caraballo [...] Code(s): I25.10 - Atherosclerotic heart disease of mi'kmaq coronary artery without angina pectoris Plan 1. Result of heart cath noted and reviewed with patient 2. Gradually uptitrate guideline directed therapy for heart failure and consideration for outpatient AICD 3. Patient can be discharged home Documented By: Charito Rodriguez MD 10/18/24 1352 Signed By: <Electronically signed by MD Charito Rodriguez> 10/18/24 1353 [facility] Work Phone: 1(382) 527-416305-24-2025 [place] [address] Cardiology Progress Note Signed Patient: Demarcus Calderon MR#: [id number] : 1955 Acct:[id number] Age/Sex: 69 / M Adm Date: 5 Loc: Room: [address] [place] [address] Type: ADM IN Attending Dr: Vincenzo Caraballo [...] Code(s): I25.10 - Atherosclerotic heart disease of mi'kmaq coronary artery without angina pectoris Plan 1. Result of heart cath noted and reviewed with patient 2. Gradually uptitrate guideline directed therapy for heart failure and consideration for outpatient AICD 3. Patient can be discharged home Documented By: Charito Rodriguez MD 10/18/24 1352 Signed By: 10/18/24 1353 [facility]05-23-2025 Progress note Author Vincenzo Caraballo [facility] InstituteNote Date/TimeMay 2024 3:24pm[place] [address] Hospitalist Progress Note Signed Patient: Demarcus Calderon MR#: [id number] : 1955 Acct:[id number] Age/Sex: 69 / M Adm Date: 5 Loc: 4 Room: [address] [place] [address] Type: ADM IN Attending Dr: Vincenzo Caraballo DO Copies to: ~ Date of Service: 10/17/2024 Subjective Subjective Narrative: Seen and evaluated this morning, is present at bedside. Was initially reviewing his hospitalization from [facility] when unfortunately I was called out of [...] Hfa.Aer.Ad INHALATION 10/17/25 10:29 Not Given BID KRAIN Carvedilol 12.5 mg 10/17/24 08:00 10/17/24 08:05 Carvedilol 12.5 Mg Tablet PO 10/17/25 07:59 12.5 mg BID.WITH.MEALS KARIN Administration Fluticasone Propionate 2 spray 10/17/24 09:00 10/17/24 10:26 Fluticasone Propionate Bronx 120 Bronx/16 Gm Bottle INTRANASAL 10/17/25 08:59 Not Given [...] 0.4 Mg Cap.Er.24h PO 10/17/25 21:59 QHS [facility] - Hospitalist Assessment/Plan (1) Acute on chronic systolic (congestive) heart failure: Plan: ? Continue diuresis which was started at [facility] ? Lasix 40 m IV push twice daily ? Daily weights ? Strict I's and O's ? Patient was transferred here from [facility] for cardiology valuation ? Echocardiogram at [facility] shows ejection fraction of 25% ? [...] has received 7 days of antibiotics at [facility], - Will defer antibiotics for now Acute hypoxic respiratory failure- likely due to CHF - Continue oxygen as needed, keep Spo2 > 90% Chronic conditions COPD HTN CAD HLD DVT PPx?SCDs Diet order?heart healthy, n.p.o. midnight CODE STATUS?full code Documented By: Vincenzo Caraballo DO 10/17/24 1521 Signed By: <Electronically signed by Vincenzo Caraballo DO> 10/17/24 1524 [facility] Work Phone: 1(331) 788-107705-23-2025 [place] [address] Cardiac Catheterization Note Signed Patient: Demarcus Calderon MR#: [id number] : 1955 Acct:[id number] Age/Sex: 69 / M Adm Date: 5 Loc: Room: [address] [place] [address] Type: ADM IN Attending Dr: Vincenzo Caraballo DO Copies to: MD Vincenzo Sam DO W Scott Sheldon, DO~ Cardiac Catheterization (Left) DATE/PROVIDER 10/17/2024 Keila Davis DO INDICATION 1. Acute decompensated left-ventricular systolic heart failure 2. Recent episode of acute respiratory failure/pneumonia 3. Ischemic cardiomyopathy with prior history of AK, two-vessel revascularizations of LAD/diagonal and distal RCA [...] with a single arterial puncture technique, a5 Honduran slender sheath was introduced to the right radial artery over guidewirewithout any complications. Next, preformed 5 Honduran JL 3.5 and JR4 diagnostic catheters were [...] PDA branch; PLV branch is occluded with wwju-wu-uwbhv collaterals PDA-RT -% Stenosis: 0 PLV-RT -% [...] DO 10/17/24 1550 Signed By: 10/17/24 1558 [facility]05-23-2025 Consult note Author Keila Davis [facility] InstituteNote Date/TimeMay 2024 1:50pm[place] [address] Cardiology Consult Note Signed Patient: Demarcus Calderon MR#: [id number] : 1955 Acct:[id number] Age/Sex: 69 / M Adm Date: 5 Loc: 4 Room: [id number] Type: ADM IN Attending Dr: Vincenzo Caraballo DO Copies to: MD Vincenzo Sam, DO Keila Davis DO~ Cardiology HPI History of Present Illness Consult Date: 10/17/24 Reason for Consult: Acute HFrEF, ischemic cardiomyopathy, ASHD, history of two-vessel PCI's, pneumonia HPI: Mr. Calderon is a 69 year old male seen in cardiology consultation at request of Dr. Pate at [facility] and hospitalist at [facility] and patient wastransferred for further cardiovascular evaluation and management. He was hospitalized for the past 7 days at [facility] with pneumonia additionally heartfailure, found to have [...] medical/interventional therapies going forward; patient agrees toproceed [facility] Medical History (Updated 10/17/24 @ [...] x10E3/uL Lymph # (Auto) 2.4 (1.00-4.8) x10E3/uL Fayette # (Auto) 1.1 H (0.0-0.8) x10E3/uL Eos [...] Code(s): I25.10 - Atherosclerotic heart disease of mi'kmaq coronary artery without angina pectoris Plan New onset severe ischemic cardiomyopathy, proceed with left heart catheterization Documented By: Keila Davis DO 10/17/24 1343 Signed By: <Electronically signed by Keila Davis DO> 10/17/24 1350 [facility] Work Phone: 1(453) 655-954405-23-2025 [place] [address] Hospitalist Progress Note Signed Patient: Demarcus Calderon MR#: [id number] : 1955 Acct:[id number] Age/Sex: 69 / M Adm Date: 5 Loc: 4 Room: [address] [place] [address] Type: ADM IN Attending Dr: Vincenzo Caraballo DO Copies to: ~ Date of Service: 10/17/2024 Subjective Subjective Narrative: Seen and evaluated this morning, is present at bedside. Was initially reviewing his hospitalization from [place] when unfortunately I was called out of [...] spray 10/17/24 09:00 10/17/24 10:26 Fluticasone Propionate Bronx 120 Bronx/16 Gm Bottle INTRANASAL 10/17/25 08:59 Not Given [...] ? Continue diuresis which was started at [facility] ? Lasix 40 m IV push twice daily ? Daily weights ? Strict I's and O's ? Patient was transferred here from [facility] for cardiology valuation ? Echocardiogram at [facility] shows ejection fraction of 25% ? [...] has received 7 days of antibiotics at [facility], - Will defer antibiotics for now Acute hypoxic respiratory failure- likely due to CHF - Continue oxygen as needed, keep Spo2 > 90% Chronic conditions COPD HTN CAD HLD DVT PPx?SCDs Diet order?heart healthy, n.p.o. midnight CODE STATUS?full code Documented By: Vincenzo Caraballo DO 10/17/24 1521 Signed By: 10/17/24 1524 [facility]05-23-[address] [place] [address] Cardiology Consult Note Signed Patient: Demarcus Calderon MR#: [id number] : 1955 Acct:[id number] Age/Sex: 69 / M Adm Date: 5 Loc: 4 Room: 5X0040-7 Type: ADM IN Attending Dr: Vincenzo Caraballo DO Copies to: MD Vincenzo Sam DO W Scott Sheldon, DO~ Cardiology HPI History of Present Illness Consult Date: 10/17/24 Reason for Consult: Acute HFrEF, ischemic cardiomyopathy, ASHD, history of two-vessel PCI's, pneumonia HPI: Mr. Calderon is a 69 year old male seen in cardiology consultation at request of Dr. Pate at [facility] and hospitalist at [facility] and patient wastransferred for further cardiovascular evaluation and management. He was hospitalized for the past 7 days at [facility] with pneumonia additionally heartfailure, found to have [...] medical/interventional therapies going forward; patient agrees toproceed [facility] Medical History (Updated 10/17/24 @ [...] x10E3/uL Lymph # (Auto) 2.4 (1.00-4.8) x10E3/uL Fayette # (Auto) 1.1 H (0.0-0.8) x10E3/uL Eos [...] Code(s): I25.10 - Atherosclerotic heart disease of mi'kmaq coronary artery without angina pectoris Plan New onset severe ischemic cardiomyopathy, proceed with left heart catheterization Documented By: Keila Davis DO 10/17/24 1343 Signed By: 10/17/24 1350 [facility]05-23-2025 History and physical note Author Tootie Richmond [facility] InstituteNote Date/TimeMay 2024 2:47[place] [id number] Hospitalist H&P Signed with Addenda Patient: Demarcus Calderon MR#: [id number] : 1955 Acct:[id number] Age/Sex: 69 / M Adm Date: 5 Loc: 4P Room: 4J2534-0 Type: ADM IN Attending Dr: Ricardo Aguero DO Copies to: DO Tootie Lopes, WILLIAN Flower MD~ ADDENDUM1 Adding on contributor Addendum Documented By: WILLIAN Richmond 10/16/248 Addendum Signed By: <Electronically signed by WILLIAN Richmond> 10/16/242332 <Electronically signed by Ricardo Aguero DO> 10/17/24 0247 HPI DATE OF EXAMINATION: 10/16/24 CHIEF COMPLAINT: heart failure HISTORY OF PRESENT ILLNESS: Mr. Calderon is a 69-year-old male with a PMH of HTN, CHF, COPD, CAD?5 cardiac stents that was transferred [facility] for exacerbation of congestive heart failure. He states he has been at [facility] since the for shortness of breath [...] or chills. He states that his director career services is Dr. Jreez. He reports he quit smoking in the s, denies alcohol or illicit drug use. [facility] chart review?patient was admitted to [facility] on 10/09/2024 for exacerbation of COPD, [...] unless noted in the HPI or below. [facility] Medical History (Updated 10/16/24 @ [...] has received 7 days of antibiotics at [facility], - Will defer antibiotics for now Acute [...] By: <Electronically signed by WILLIAN Richmond> 10/16/242331 [facility] Work Phone: 1(501) 357-516405-23-2025 [place] [address] Hospitalist H&P Signed with Addenda Patient: Demarcus Calderon MR#: [id number] : 1955 Acct:[id number] Age/Sex: 69 / M Adm Date: 5 Loc: Room: [address] [place] [address] Type: ADM IN Attending Dr: Ricardo Aguero [...] cardiac stents that was transferred here to [facility] for exacerbation of congestive heart failure. He states he has been at [facility] since the for shortness of breath [...] or chills. He states that his director career services is Dr. Jerez. He reports he quit smoking in the , denies alcohol or illicit drug use. [facility] chart review?patient was admitted to [facility] on 10/09/2024 for exacerbation of COPD, [...] unless noted in the HPI or below. [facility] Medical History (Updated 10/16/24 @ [...] has received 7 days of antibiotics at [facility], - Will defer antibiotics for now Acute [...] of days): 3 Documented By: Tootie Richmond, DEDICATED REGIONAL DRIVER [id number] Signed By: 10/16/24 2332 [facility]05-22-2025 Evaluation note* Diagnosis Onset Date Resolution Status Admit Date Acute hypoxic respiratory failure acuteMay 2024 9:38pmAcute on chronic systolic (congestive) heart failure acuteMay 2024 9:38pmASHD (arteriosclerotic heart disease)acuteMay 2024 9:38pmCommunity acquired pneumoniaacuteMay 2024 9:38pmHistory of heart artery stentacuteMay 2024 9:38pm [facility] Work Phone: 1(535) 999-665605-22-2025 Evaluation note* Diagnosis Onset Date Resolution Status Admit Date Acute hypoxic respiratory failure resolvedMay 2024 9:38pmAcute on chronic systolic (congestive) heart failureresolvedMay 2024 9:38pmCommunity acquired pneumoniaresolvedMay 2024 9:38pmASHD (arteriosclerotic heart disease)inactiveMa2024 9:38pmHistory of heart artery stentinactiveMay 2024 9:38pm [facility] Work Phone: 1(299) 709-986504-30-2025 History of Present illness Narrative* Sally Mancuso, ROHITH - 09/24/2024 1:30 PM EDT Images from the original note were not included. Demarcus Calderon is a 69 y.o. male presents with chief complaint of 6 Month Follow Up of Chronic Conditions, Medicare Annual Wellness Visit Subsequent, and ER Follow-up ([facility] 09/22/2024 for CHF. He was advised [...] under the care of Dr. Phoenix, a director career services, and has resumed his diuretic regimen. [...] incident. Prediabetes Monitoring Blood work at the [facility] is scheduled for 10/10/2024. He is not currently on any antidiabetic medications and is monitored for prediabetes, with an A1c of 6.3 in 2023. - Timing: Blood work scheduled for 10/10/2024 for the [facility]. - Severity: A1c of 6.3 in 2023. PSA Levels Monitoring Dr. Baptiste, a urologist, is monitoring his prostate-specific antigen (PSA) levels, which improved from 6.0 to 2.3 between last year and 03/2024. - Timing: PSA levels improved between last year and 03/2024. - Severity: PSA levels improved from 6.0 to 2.3. Colonoscopy Referral A referral for a colonoscopy at [facility] has been declined, opting to defer the procedure for a year. Medical History and Vaccinations There is no history of chickenpox, but he has had mumps and measles. The shingles vaccine was administered in 2016. Living Will and Power of Director Medical Affairs A living will and power of patent attorney are in place. Resuscitation efforts are [...] Yes Vision Screening: Yes, patient sees regular event sales assistant/dirt bike racer Cognitive Screening Self Assessment: No overt cognitive deficiency is apparent by direct observation Three Word Registration: Banana, [place], Chair Clock Drawing: Normal Clock - 2 Three Word Recall: 2/3 words correct - 2 Total Score (0-5 Points): 4 Pain Assessment Pain Score: 0 - No pain HISTORIES: PAST MEDICAL HISTORY: Past Medical History: Diagnosis Date Asthma BPH (benign prostatic hyperplasia) CAD (coronary artery disease) ([facility]) COPD (chronic obstructive pulmonary disease) ([facility]) Emphysema, unspecified Hypercholesterolemia ([facility]) Hypertensive heart disease SURGICAL HISTORY: [...] 50 MCG/ACT nasal spray 2 sprays, Daily Dgzzrkyyvpq-Syfsgfbbo-Zacaif (Trelegy Ellipta) 100-62.5-25 MCG/ACT aerosol powder 1 [...] with eag 5. Coronary artery disease involving mi'kmaq coronary artery of mi'kmaq heart without angina pectoris(CMS/HCC) Doing well. Denies [...] Morbid (severe) obesity due to excess calories (CMS/[facility]) As above. 11. Medicare annual [...] the above issues. documented in this encounterMercy Hospital St. John'[id number] NotePatient Education Urology Benign Prostatic Hyperplasia Benign [...] Follow these instructions at home: ??? Take bcdp-fsl-sxbygep and prescription medicines only as told by [...] symptoms do not get (more content not included)...[facility]03-24-2025 NotePatient Education Urology Benign Prostatic Hyperplasia [...] Follow these instructions at home: ??? Take uvuy-idx-skxyzlj and prescription medicines only as told by [...] symptoms do not get (more content not included)...[facility]03-14-2025 Hospital Discharge instructions Patient Education 08/08/2024 [...] Up Care 06/23/2024 15:57:15 With:John BAPTISTE Address: [address] [place] [address]- Business (1) When: Unknown Comments:Push the fluids to keep the urine clear. Stay on the Flomax for now.Some discharge instructions have been provided. If the bleeding gets severe, or the catheter is clogging from blood clots, you needto go to the ER for irrigation.Will make a one week appt. to remove the catheter. [facility] 03-14-2025 NotePatient Education Urolift ??? Some men [...] surgeon, seek help from a hospital emergency room.[facility]03-14-2025 Evaluation + Plan noteExtracted from:Title:EU UroLift 8 Implants- FTAuthor:John BAPTISTE MD PDate:08/08/24 Patient: DEMARCUS CALDERON Age: 69 years Sex: Male : 1955 Associated Diagnoses: None Author: John BAPTISTE MD Procedure Operative Information Details: Date/ Time: 08/08/2024 13:41:00. Pre-Op Dx: Acute urinary retention (AYZ80-QV R33.8, Working, Medical), BPH with obstruction/lower urinary tract symptoms (LEG79-NG N40.1, Working, Medical). Post-Op Dx: Same. Anesthesia [...] procedure (10 mg diazepam, 5/325 mg of Dupont), Local Anesthesia (60cc 2% Xylocaine liquid inserted [...] Appointments Appointment Date:08/13/2024 12:00:00 PM Scheduled Provider: Location:[facility] Appointment Type:Urology CALL PAT Appointment Date:08/15/2024 08:00:00 AM Scheduled Provider: Location:[facility] KATTY Tejada Appointment Type:URO Nurse Visit [facility] 02-20-2025 History of Present illness Narrative* Marybeth [...] Erythema intertrigo Pubic, Right Foot - Anterior [place] moist plaques. Flaring today Discussed that intertrigo is a chronic condition that can be controlled but not cured. Recommend keeping areas as dry as possible to avoid flares. Start Nystatin powder every day. Start HC 2.5% creamevery day prn itching, hold if not itchy. Notify office if worsening despite treatment. nystatin (Mycostatin) 747360 UNIT/GM powder - Pubic Apply to the affected area on groin area, once daily, 30 day supply hydrocortisone 2.5 % cream - Pubic Apply thin layer to affected areas on groin up once or twice daily prn itching. Hold if not itchy. Next Visit: 3-4 weeks if not improving documented in this encounterMercy Hospital St. John'[id number] History of Present illness Narrative* Sally Mancuso, ROHITH - 07/02/2024 9:15 AM EST Images from the original note were not included. Demarcus Calderon is a 69 y.o. male presents with chief complaint of ER Follow-up ([facility] 06/29/2024 dx: COPD exacerbation 2ndry viral [...] Flowsheet Row Patient Out[facility] [place] [facility] with Orquidea Shah RN Hospital Information ED, Hospital or Shelter Facility Discharge? ED Patient has been contacted within 1 week of being seen in the ED Yes Diagnosis COPD exacerbation secondary to viral infection Discharge Date 06/29/24 Discharged To: Home Setting Discharge Hospital -- [[facility]] Engagement Admission Date 06/29/24 Medications Discharge [...] Wrap Up Additional Comments Patient present to [facility] ER with a productive cough and runny [...] unspecified (CMS/HCC) Hypercholesterolemia (CMS/HCC) Hypertensive heart disease ([facility]) SURGICAL HISTORY: Past Surgical History: [...] 50 MCG/ACT nasal spray 2 sprays, Daily Xdasexnosqx-Qqoqhbsnc-Etkfxx (Trelegy Ellipta) 100-62.5-25 MCG/ACT aerosol powder 1 [...] a topical cream will be sent to [facility] pharmacy. Follow up if not [...] to Dermatology; Future documented in this encounterMercy Hospital St. John'[id number] Hospital Discharge instructions Patient Education 06/23/2024 15:40:46 [...] including vitamins, herbs, eye drops, creams, and vxwq-klk-secxvww medicines. Any problems you or family members [...] provider tells you to take them. Taking cnuj-yxx-ocbhghh medicines, vitamins, herbs, and supplements. Surgery safety [...] provider. Document Revised: 12/09/2021 Document Reviewed: 12/09/2021 [facility] Patient Education 2023 [employer]. Follow Up Care 04/28/2024 12:25:17 With:BENNY SHELLEY, John Hauser, URL Address: [facility] [place] [address]- When: Unknown [facility] [id number] NotePatient Education Urology Prostatic Urethral Lift Prostatic [...] including vitamins, herbs, eye drops, creams, and mamz-qcf-benhhmk medicines. ??? Any problems you or family [...] tells you to take them. ??? Taking faas-aub-qufgklt medicines, vitamins, herbs, and supplements. Surgery safety [...] procedure to relieve symptoms (more content not included)...[facility]12-19-2024 History of Present illness Narrative* Rene [...] , Rfl: omega-3 fatty acids-fish oil (One-Per-Day Alexandria-3) 684-1,200 mg capsule, Take as directed, Disp: [...] 11 Assessment/Plan 1. Coronary artery disease involving mi'kmaq coronary artery of mi'kmaq heart without angina pectorisFollow Up In Cardiology [...] exam, discussion and plan. [facility] Work Phone: 1(230) 283-244612-19-2024 Instructions* Patient Instructions* Ana Cunningham LPN - [...] on exercise. Follow up documented in [facility] Work Phone: 1(272) 444-961712-11-2024 History of Present illness Narrative* Gurjit Busby NP - 05/07/2024 5:15 PM EST Images from the original note were not included. [address] , [address] [facility], [address] P: [phone] F: [phone] HPI Historian of HPI: patient Demarcus Calderon [...] PE. IH Testing: Pt was admitted to [facility] for pneumonia in January of 2024. [...] with exam. TREATMENT PLAN documented in this [facility]12-11-2024 Instructions* Patient Instructions* Gurjit Busby NP - 05/07/2024 5:15 PM EST Cover for otitis. Finish all doses of antibiotic Push fluids, may continue with OTC Meds for sy mptom relief COPD Is stable, saw pulmonology today documented in this [facility]12-02-2024 Hospital Discharge instructions Patient Education 04/28/2024 [...] (electrical nerve stimulation). ?For women, using a biomedical engineering internship to prevent urine leaks. This is a [...] right after experiencing incontinence. General instructions Take rsbb-obv-bwhroei and prescription medicines only as told by [...] important. Where to find more information National Century of Diabetes and Digestive and Kidney Diseases: www.niddk.nih.gov [employer]: www.urologyhealth.org Contact a health care [...] provider. Document Revised: 12/17/2020 Document Reviewed: 12/17/2020 [facility] Patient Education 2023 [employer]. 04/28/2024 12:02:20 Acute Urinary Retention, Male Acute [...] Follow these instructions at home: Medicines Take ipvv-xzb-phywxlo and prescription medicines only as told by [...] provider. Document Revised: 02/02/2021 Document Reviewed: 02/02/2021 [facility] Patient Education 2023 [employer]. 04/28/2024 12:02:13 Prostate Cancer Screening Prostate Cancer [...] treatment? Where to find more information The [place]: www.cancer.org [employer] Association: www.auanet.org Contact a health care [...] provider. Document Revised: 11/07/2021 Document Reviewed: 11/07/2021 [facility] Patient Education 2023 [employer]. Follow Up Care 04/16/2024 11:10:33 With:SU COOK PA-C, URL Address: [address] [place] [address] When: Unknown [facility] [place] 12-02-2024 NotePatient Education Oncology Prostate [...] Where to find more information ??? The [place]: www.cancer.org ??? [employer] Association: www.auanet.org Contact a health care [...] men. The prostate gland (more content not included)...[facility]11-20-2024 NoteUrology Office/Clinic Note Chief Complaint new [...] When Contact Information SU COOK PA-C, URL [address] [place] [address] Additional Instructions: f/u in 2 weeks w/ PSA and PVR Patient Education Acute Urinary Retention, Male Benign Prostatic Hyperplasia Prostatitis Problem List/Past Medical History Ongoing Chronic systolic congestive heart f (more content not included)...[facility] on above:Result Comment: Electronically Signed By: SU COOK PA-C\.br\Date and Time Signed: 04/16/2414:04 EST\.br\Electronically Co-Signed By: Tatiana Dyson PA-C\.br\Date and Time Co-Signed: 04/16/2413:22 EST\.br\Electronically Co-Signed By: Tatiana Dyson PA-C\.br\Date and Time Co- Signed: 04/16/2413:24 [id number] Hospital Discharge instructions Patient Education 04/16/2024 11:46:12 [...] Follow these instructions at home: Medicines Take vmrl-lvv-ptmmbqe and prescription medicines only as told by [...] provider. Document Revised: 02/02/2021 Document Reviewed: 02/02/2021 [facility] Patient Education 2023 [employer]. 04/16/2024 11:46:02 Benign Prostatic Hyperplasia Benign Prostatic [...] urethra. Follow these instructions at home: Take rjxx-jpq-ahmnlef and prescription medicines only as told by [...] provider. Document Revised: 11/30/2021 Document Reviewed: 11/30/2021 [facility] Patient Education 2023 [employer]. 04/16/2024 11:46:00 Prostatitis Prostatitis Prostatitis is swelling [...] Follow these instructions at home: Medicines Take txtt-qql-nbhivlt and prescription medicines only as told by [...] important. Where to find more information National Century of Diabetes and Digestive and Kidney Diseases: [...] depends on the type of prostatitis. Take rvgu-vgy-sebzklz and prescription medicines only as told by [...] provider. Document Revised: 03/29/2023 Document Reviewed: 03/29/2023 [facility] Patient Education 2023 [employer]. Follow Up Care 03/06/2024 09:43:54 With:ADRIÁN DELACRUZ, SU Esquivel, URL Address: [address] [place] [address] When: Unknown Comments:f/u in 2 weeks w/ PSA and PVR [facility] [place] [id number] NotePatient Education Infectious Disease Prostatitis Prostatitis is [...] these instructions at home: Medicines ??? Take iedy-lxs-clzmmfq and prescription medicines only as told by [...] provider. This is important. (more content not included)...[facility]10-30-2024 History of Present illness Narrative* Sera [...] (benign prostatic hyperplasia) CAD (coronary artery disease) ([facility]/HCC) COPD (chronic obstructive pulmonary disease) ([facility]/HCC) Emphysema, unspecified ([facility]/HCC) Hypercholesterolemia ([facility]/HCC) Hypertensive heart disease ([facility]/HCC) SURGICAL HISTORY: Past Surgical History: Procedure Laterality [...] 50 MCG/ACT nasal spray 2 sprays, Daily Ftbdqvnkwnd-Vydprznvi-Rtrhbz (Trelegy Ellipta) 100-62.5-25 MCG/ACT aerosol powder 1 [...] or concerns. 3. Coronary artery disease involving mi'kmaq coronary artery of mi'kmaq heart without angina pectoris(CMS/HCC) Doing well. Denies [...] evaluation may be necessary. documented in this [facility]10-02-2024 History of Present illness Narrative* Sally Mancuso NP - 02/27/2024 10:45 AM EDT Images from the original note were not included. Demarcus Calderon is a 69 y.o. male presents with chief complaint of Hospital Follow-up ([facility] dx: sepsis, COPD, pneumonia) HPI: Patient presented to [facility] ER with complaints of shortness of breath, productive cough and wheezing. CXR showed right lower lobe and middle lobe pneumonia. He was prescribed Prednisone and Cefdinir. He reports to be feeling much better. He does have follow-up scheduled with Dr. Phoenix, die cutting machine operator, in April. History of Present Illness [...] Flowsheet Row Patient Out[place]21[place] [facility] [place] Tootie Jacobson RN Hospital Information Diagnosis Pneumonia, HTN, CHF, Benign prostate hyperplasia without urinary symptoms. Discharged To: Home Setting Discharge Hospital [facility] Engagement Admission Date 02/17/24 Medications Discharge [...] nasal spray 2 sprays, Each Nostril, Daily Wmznmoyhady-Aobhntude-Freblr (Trelegy Ellipta) 100-62.5-25 MCG/ACT aerosol powder 1 [...] or concerns. 6. Coronary artery disease involving mi'kmaq coronary artery of mi'kmaq heart without angina pectoris(CMS/HCC) Doing well. Denies any anginal symptoms. Continue aggressive risk factor modification. Continue current medications. Call if any problems. 7. Gastroesophageal reflux disease without esophagitis Stable. Continue current regimen. 8. Benign prostatic hyperplasia without urinary obstruction Stable. Continue current regimen. - PSA, total and free documented in this encounterMercy Hospital St. John'[id number] Note Gram Stain Evaluation This specimen is of good quality and is acceptable for routine [facility] John'[id number] NoteGRAM STAIN EVALUATIONbacterial culture.[facility] [id number] History of Present illness Narrative* Rene Cortez [...] and he continues to follow with the [place]. Recent lab data from the [place] were provided and reviewed with him. LDL [...] emphasis on low-calorie diet Rene Cortez MD, [facility] Review of Systems All other [...] , Rfl: omega-3 fatty acids-fish oil (One-Per-Day [place]-3) 684-1,200 mg capsule, Take as directed, Disp: [...] 3 Assessment/Plan 1. Coronary artery disease involving mi'kmaq coronary artery of mi'kmaq heart without angina pectorisFollow Up In Cardiology [...] Scribe Attestation By signing my name below, Aan Munoz LPN, Scribe attest that this documentation [...] exam, discussion and plan. documented in [facility] Work Phone: 1(633) 225-885005-23-2024 Instructions* Patient Instructions* Ana Cunningham LPN - [...] Follow up 6 months documented in this encounterC[facility] Work Phone: 1(313) 267-766602-03-2024 History of Present illness Narrative* Hosea Snyder, [...] x 3 days documented in this encounterMercy Hospital St. John'[id number] History of Present illness Narrative* Rene Cortez [...] , Rfl: omega-3 fatty acids-fish oil (One-Per-Day [place]-3) 684-1,200 mg capsule, Take as directed, Disp: [...] Rfl: Assessment/Plan 1. Coronary artery disease involving mi'kmaq coronary artery of mi'kmaq heart without angina pectorisFollow Up In Cardiology [...] Aspartate Aminotransferase Alanine Aminotransferase documented in this encounterCrystal [facility] Work Phone: 1(833) 328-927810-27-2023 Instructions* Patient Instructions* Millie Hoffmann CMA - [...] time of your visit. documented in this encounterCrystal [facility] Work Phone: 1(495) 439-524606-20-2023 NoteHNO ID: [id number] Author: Deandra Bender MD Service: ? Author [...] or facial palsy H/o Botox injections in [place]-->didn't help No h/o trauma H/o sinus surgery [...] can I get the FL-41 filter? Any [facility] location, (with an optical shop), throughout [place], Email: [email or web address] [employer] in [place], [place], [facility] in [place], [place], [facility] in [place], [place], Personal in [place], [place], [phone] [email or web address] [email or web address] Botulinum toxin 3 months, Botulinum toxin [...] Deandra Bender MD, November 14, 2022 10:00 AM.[facility]06-20-2023 History of Present illness Narrative* Deandra Bender MD - 11/14/2022 10:00 AM EDT Here for botox Right eye just started twitching Tears as needed. -rofPatient still having twitching right eye and occasionally the left. Refresh tears four times a day. -rof A/P: Right hemifacial spasm x 2 years Patient doesn't remember h/o bells or facial palsy H/o Botox injections in [place]-->didn't help No h/o trauma H/o sinus surgery [...] can I get the FL-41 filter? Any [facility] location, (with an optical shop), throughout [place], Email: [email or web address] [employer] in [place], [place], [employer] [facility] in [place], [place], [facility] in [place], [place], [facility] in [place], [place], [phone] [email or web address] [email or web address] Botulinum toxin 3 months, Botulinum toxin [...] 14, 2022 10:00 AM. documented in this encounterCleveland [facility]03-14-2023 NoteHNO ID: [id number] Author: Deandra Bender MD Service: ? Author Type: Physician Type: Progress Notes Filed: 08/08/2022 3:09 PM Note Text: Patient still having twitching right eye and occasionally the left. Refresh tears four times a day. -rof A/P: Right hemifacial spasm x 2 years Patient doesn't remember h/o bells or facial palsy H/o Botox injections in [place]-->didn't help No h/o trauma H/o sinus surgery [...] Deandra Bender MD, August 08, 2022 3:05 PM.[facility]03-14-2023 History of Present illness Narrative* Deandra Bender MD - 08/08/2022 3:45 PM EDT Patient still having twitching right eye and occasionally the left. Refresh tears four times a day. -rof A/P: Right hemifacial spasm x 2 years Patient doesn't remember h/o bells or facial palsy H/o Botox injections in [place]-->didn't help No h/o trauma H/o sinus surgery [...] 08, 2022 3:05 PM. documented in this encounterCleveland Clinic Avon Hospital03-14-2023 Instructions* Patient Instructions* Deandra Bender MD [...] Photodocumentation Recheck next visit documented in this encounterCleveland Clinic Avon Hospital01-25-2023 Miscellaneous Notes* Telephone Encounter - Orquidea Downs - 06/21/2022 2:03 PM EST Notes and MRI orders faxed to [facility]. * Telephone Encounter - Delores Mccollum - 06/21/2022 12:50 PM EST [facility] called today. : 1955 Allergies: Codeine, Codeine-Guaifenesin, and Guaifenesin (home) [phone] (cell) Reason for call: Sasha F:[phone] Asking for the MRI orders and office notes to be faxed over to [facility]. Patient will be having them done there. Patient last appointment: Visit date not found The patients preferred pharmacy has been captured for this encounter? not asked Delores Mccollum documented in this encounterCleveland Clinic Avon Hospital01-25-2023 NoteHNO ID: [id number] Author: Deandra Bender MD Service: ? Author Type: Physician Type: Progress Notes Filed: 06/21/2022 9:08 AM Note Text: Twitching right eye x two years. Both upper and lower lid. Trouble reading because of it. +tearing and burning. Refresh four times a day. -rof A/P: Right hemifacial spasm x 2 years Patient doesn't remember h/o bells or facial palsy H/o Botox injections in [place]-->didn't help No h/o trauma H/o sinus surgery [...] Deandra Bender MD, June 21, 2022 9:05 AM.[facility]01-25-2023 Instructions* Patient Instructions* Deandra Bender MD [...] toxin and get MRI documented in this encounterCleveland Clinic Avon Hospital01-25-2023 History of Present illness Narrative* Deandra Bender MD - 06/21/2022 9:00 AM EST Twitching right eye x two years. Both upper and lower lid. Trouble reading because of it. +tearing and burning. Refresh four times a day. -rof A/P: Right hemifacial spasm x 2 years Patient doesn't remember h/o bells or facial palsy H/o Botox injections in [place]-->didn't help No h/o trauma H/o sinus surgery [...] 2022 9:05 AM. documented in this encounterCleveland Clinic Avon Hospital12-05-2022 NoteHNO ID: [id number] Author: Mau Randle OD Service: ? Author Type: EDGE GRINDER MACHINE Type: Progress Notes Filed: 05/01/2022 9:22 AM [...] all of its relevant components. [facility]au Randle [facility] History of Present illness Narrative* Mau [...] components. Mau Randle, LATASHA documented in this encounterCleveland Clinic [place] [address] Discharge Summary Signed Patient: Demarcus Calderon MR#: [id number] : 1955 Acct:[id number] Age/Sex: 69 / M Adm Date: 5 Loc: 4P Room: [address] [place] [address]: Vincenzo Caraballo DO Copies to: MD Vincenzo Sam, DO~ Providers Date of Admission: 10/16/24 Date of Discharge: 10/17/24 Discharging Provider: Vincenzo Caraballo Primary Care Provider: Sera Flower Consults: 10/16/24 23:19 Consult to Cardiology Routine Comment: Consulting Provider: [facility], [facility] Reason For Exam: acute on chronic [...] likelydue to ischemia. He had been at [facility] approximately 6 to 7 days for fluid overload and pneumonia. He completed treatment of pneumonia. Upon arrival here he was doing well on 1 L nasal cannula, he was made n.p.o., cardiology was consulted and notified of thisconsult. 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 4. ACTIVITY: You are advised [...] bottle, follow the instructions on the bottle. [facility] is not responsible for incorrect prescription information [...] Continuity of Care Document Health Concerns: A [facility] screening has identified you as FRAIL or [...] Strong:Four Ways to Beat the Frailty Risk https://www.[facility].org/health/tygqxber-bmd-zubpaihwae/st jh-twmbpb-hqen- mnlf-or-lbxc-flx-cqlsgrh-ocsp Exam Physical Exam Vital Signs: Temp Pulse [...] DO 10/19/24 1403 Signed By: 10/19/24 140 [facility] InstituteDis[facility] summary Author Vincenzo Caraballo [facility] InstituteNote Date/TimeMay 2024 2:07pmJames [place]ille [id number] Discharge Summary Signed Patient: Demarcus Calderon MR#: [id number] : 1955 Acct:[id number] Age/Sex: 69 / M Adm Date: 5 Loc: Room: [address] [place] [address]: Vincenzo Caraballo DO Copies to: MD Vincenzo Sam, DO~ Providers Date of Admission: 10/16/24 Date of Discharge: 10/17/24 Discharging Provider: Vincenzo Caraballo Primary Care Provider: Sera Flower Consults: 10/16/24 23:19 Consult to Cardiology Routine Comment: Consulting Provider: [facility] Triptrotting, [facility] Reason For Exam: acute on chronic [...] likelydue to ischemia. He had been at [facility] approximately 6 to 7 days for fluid overload and pneumonia. He completed treatment of pneumonia. Upon arrival here he was doing well on 1 L nasal cannula, he was made n.p.o., cardiology was consulted and notified of thisconsult. 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 4. ACTIVITY: You are advised [...] bottle, follow the instructions on the bottle. [facility] is not responsible for incorrect prescription information [...] Continuity of Care Document Health Concerns: A [facility] screening has identified you as FRAIL or [...] Strong:Four Ways to Beat the Frailty Risk https://www.[facility].org/health/gvhvcroj-dxf-dhntnpyfer/st mn-dqajyy-qwbo- qfcn-pi-rmzx-ahs-tciatla-ncxp Exam Physical Exam Vital Signs: Temp Pulse [...] signed by Vincenzo Caraballo, DO> 10/19/24 1407 [facility] Work Phone: Evaluation + Plan note Future Appointments Appointment Date:04/25/2024 08:30:00 AM Scheduled Provider: Location:[facility] Appointment Type:URO Nurse Visit Appointment Date:04/28/2024 11:20:00 AM Scheduled Provider:SU COOK PA-C Location:[facility] Appointment Type:URO Office Visit [facility] [employer]uation + Plan note Future Appointments Appointment Date:04/28/2024 11:20:00 AM Scheduled Provider:SU COOK PA-C Location:[facility] Appointment Type:URO Office Visit [facility] evaluation + Plan note Future Appointments Appointment Date:06/23/2024 03:00:00 PM Scheduled Provider:John BAPTISTE MD Location:[facility] Appointment Type:URO Procedure 15 min [facility] Evaluation + Plan note Future Appointments Appointment Date:08/13/2024 12:00:00 PM Scheduled Provider: Location:[facility] Appointment Type:Urology CALL PAT FT Appointment Date:08/14/2024 01:30:00 PM Scheduled Provider: Location:[facility] Appointment Type:Urology FT [facility] Evaluation + Plan note Future Appointments Appointment Date:06/02/2025 09:30:00 AM Scheduled Provider: Location:[facility] [place] Appointment Type:URO Nurse Visit Appointment Date:06/09/2025 09:45:00 AM Scheduled Provider:John BAPTISTE MD Location:[facility] [place] Appointment Type:URO Office Visit Future Scheduled Tests Laboratory* PSA Free & Total 06/04/25 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 documented in this encounter [facility]* Diagnosis Clonic hemifacial spasm, right- Primary documented in this encounter [facility]* Diagnosis Clonic hemifacial spasm, right- Primary documented in this encounter [facility] HospitalEvaluwilmington hospital noteNo assessment information availableOur Lady Of Mercy Hospital Work Phone: Evaluation note* Diagnosis Coronary artery disease involving mi'kmaq coronary artery of mi'kmaq heart without angina pectoris Essential hypertension Unspecified essential hypertension Mixed hyperlipidemia Ischemic cardiomyopathy Other specified forms of chronic ischemic heart disease Status post coronary artery stent placement Postsurgical percutaneous transluminal coronary angioplasty status Class 2 obesity with body mass index (BMI) of 35.0 to 35.9 in adult, unspecified obesity type, unspecified whether serious comorbidity present documented in this encounter [facility] Work Phone: Evaluation note* Diagnosis Acute exacerbation of chronic obstructive pulmonary disease (CMS/HCC)- Primary Obstructive chronic bronchitis with exacerbation documented in this encounter [facility]* Diagnosis Coronary artery disease involving mi'kmaq coronary artery of mi'kmaq heart without angina pectoris- Primary Essential hypertension [...] hazards to health documented in this encounter [facility] Work Phone: Evaluation note* Diagnosis Sepsis, due to unspecified organism, unspecified whether acute organ dysfunction present ([facility])- Primary Pneumonia of right middle lobe due to infectious organism Hyponatremia Hyposmolality and/or hyponatremia Essential hypertension ([facility]/HCC) Unspecified essential hypertension Chronic systolic congestive heart failure (CMS/HCC) Coronary artery disease involving mi'kmaq coronary artery of mi'kmaq heart without angina pectoris ([facility]) Gastroesophageal reflux disease without esophagitis Esophageal reflux Benign prostatic hyperplasia without urinary obstruction [facility]* Diagnosis Essential hypertension (CMS/HCC)- Primary Unspecified essential hypertension Chronic systolic congestive heart failure (CMS/HCC) Coronary artery disease involving mi'kmaq coronary artery of mi'kmaq heart without angina pectoris ([facility]/HCC) Chronic obstructive pulmonary disease, unspecified COPD type (CMS/HCC) Pure hypercholesterolemia ([facility]) Pure hypercholesterolemia Prediabetes Other abnormal [...] HealthcareEvaluation note* Diagnosis Coronary artery disease involving mi'kmaq coronary artery of mi'kmaq heart without angina pectoris- Primary Essential hypertension Unspecified essential hypertension Ischemic cardiomyopathy Other specified forms of chronic ischemic heart disease Mixed hyperlipidemia Status post coronary artery stent placement Postsurgical percutaneous transluminal coronary angioplasty status Former smoker Personal history of tobacco use, presenting hazards to health BMI 36.0-36.9,adult Class 2 obesity documented in this encounter [facility] Work Phone: Evaluation note* Diagnosis Chronic obstructive pulmonary disease, unspecified COPD type ([facility]/HCC)- Primary Bronchiectasis without complication ([facility]) Rash Rash and other nonspecific [...] hypertension (CMS/HCC) Unspecified essential hypertension Pure hypercholesterolemia ([facility]) Pure hypercholesterolemia Chronic systolic (congestive) heart failure Prediabetes Other abnormal glucose Coronary artery disease involving mi'kmaq coronary artery of mi'kmaq heart without angina pectoris ([facility]/HCC) Severe persistent asthma, uncomplicated (CMS/HCC) Elevated PSA Elevated prostate specific antigen (PSA) BMI 36.0-36.9,adult Morbid (severe) obesity due to excess calories (CMS/HCC) Medicare annual wellness visit, subsequent ACP (advance care planning) Other specified counseling documented in this encounter [facility]* Diagnosis BMI 33.0-33.9,adult- Primary Ischemic cardiomyopathy Other specified forms of chronic ischemic heart disease documented in this encounter [facility] Work Phone: Hospital course Narrative No data available for this section [facility] Hospital Discharge instructions Additional Instructions If your symptoms return/worsen or you develop any further concerns or symptoms please see your doctor or return to the emergency department immediately.[facility] Work Phone: Hospital Discharge instructions No data available for this section [facility] Hospital Discharge instructions Additional Instructions 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 4. ACTIVITY: You are advised [...] bottle, follow the instructions on the bottle. [facility] is not responsible for incorrect prescription information provided by the patient during their visit. Do not stop your medications without consulting your health care provider. Please take the list with you to your next doctor's appointment.[facility] Work Phone: Progress note No data available for this section [facility] [place] Reason for referral (narrative)* Consultation (Routine) - AuthorizedSpecialtyDiagnoses / ProceduresReferred By ContactReferred To ContactCardiology Diagnoses Coronary artery disease involving mi'kmaq coronary artery of mi'kmaq heart without angina pectoris Essential hypertension Mixed hyperlipidemia Ischemic cardiomyopathy Status post coronary artery stent placement Class 2 obesity with body mass index (BMI) of 35.0 to 35.9 in adult, unspecified obesity type, unspecified whether serious comorbidity present Procedures Follow Up In Cardiology Rene Cortez MD [address] [address], [address] [address] Rene Cortez MD [address] [address], [address] [address] Referral IDStatusReasonStart DateExpiration DateVisits RequestedVisits [id number]/27/202310/26/202411 [facility] Work Phone: Reason for referral (narrative)* Consultation (Routine) - AuthorizedSpecialtyDiagnoses / ProceduresReferred By Contact Referred To ContactCardiology Diagnoses Coronary artery disease involving mi'kmaq coronary artery of mi'kmaq heart without angina pectoris Procedures Follow Up In Cardiology Rene Cortez MD [address] [place] [address], [address] [address] Rene Cortez MD [address] [place] [address], [address] [address] Referral IDStatusReasonBoone DateExpiration DateVisits RequestedVisits [id number]/23/20245/ [facility] Work Phone: Chief Complaint * DEMARCUS CALDERON [...] infarction with no ischemia. EF in the [id number]. He remains compensated as for ischemic cardiomyopathy. [...] on low-calorie diet * Rene Cortez MD, [facility] Family History Unknown Family Member Name Dates [...] W/O & W/CONTRAST MATRL Deandra Bender MD [address] [facility] [facility] [place] [id number] Mr Imaging Referral IDStatusReasonStart DateExpiration DateVisits RequestedVisits [id number] Review Auto-Generated Referral /[id number] / ProceduresReferred By ContactReferred To [facility] IMAG[facility] Diagnoses Paralytic strabismus Procedures MRI BRAIN WO/W IVCON MRI BRAIN BRAIN STEM W/O W/CONTRAST MATERIAL Deandra Bender MD [address] ProjectK[address] [place] [id number] Mr Imaging Referral IDStatusReasonStart DateExpiration DateVisits RequestedVisits [id number] Review Auto-Generated Referral Summary Purpose Advance Directives [...] or prosecute any alcohol or drug abuse patient.[facility] HospitalIn the event this information is protected by the Federal Confidentiality of Alcohol and Drug Abuse Patient Records regulations: The Federal rules restrict any use of the information to criminally investigate or prosecute any alcohol or drug abuse patient.[facility] HospitalIn the event this information is protected by the Federal Confidentiality of Alcohol and Drug Abuse Patient Records regulations: The Federal rules restrict any use of the information to criminally investigate or prosecute any alcohol or drug abuse patient.[facility] HospitalIn the event this information is protected by the Federal Confidentiality of Alcohol and Drug Abuse Patient Records regulations: The Federal rules restrict any use of the information to criminally investigate or prosecute any alcohol or drug abuse patient.[facility] HospitalIn the event this information is protected by the Federal Confidentiality of Alcohol and Drug Abuse Patient Records regulations: The Federal rules restrict any use of the information to criminally investigate or prosecute any alcohol or drug abuse patient.[facility] Reason for Visit (unrecogniz ed section and content) ReasonCommentsWatery Eyes Right EyeBlurred Vision Right EyeRight eye blurry when reading or computerReasonCommentsHemifacial spasm/MyokymiaReasonCommentsOrders ReasonCommentsHemifacial spasm/MyokymiaSpecialtyDiagnoses / ProceduresReferred By ContactReferred To ContactOphthalmology / OPHTHALMOLOGY Diagnoses Hemifacial spasm F/u Botulinum toxin 3 months, Botulinum toxin is being used for medical indication and treatment of hemifacial spasm , up to 100 units Procedures BOTOX EI [id number] [place] [address] [place] [address] Deandra Bender MD [address] [place] [address] Referral IDStatusReasonStart DateExpiration DateVisits RequestedVisits [id number]/20/202312/[id number]-pa7 monthsReasonCommentsFollow-os2rZzedhwmixKqxdzfvtn / ProceduresReferred By ContactReferred To ContactCardiology Diagnoses Coronary artery disease involving mi'kmaq coronary artery of mi'kmaq heart without angina pectoris Essential hypertension Mixed hyperlipidemia Ischemic cardiomyopathy Status post coronary artery stent placement Class 2 obesity with body mass index (BMI) of 35.0 to 35.9 in adult, unspecified obesity type, unspecified whether serious comorbidity present Procedures Follow Up In Cardiology Rene Cortez MD [address] [place] [address], [address] [address] Rene Cortez MD [address] [place] [address] 2, [address] [address] Ref[facility]Status[facility] DateExpiration DateVisits RequestedVisits [id number]/27/202310/[id number] [facility]: sepsis, COPD, pneumoniaReasonComments6 Month Follow-upLab drawn 02/27/2024.CoughProductive cough continues with yellow sputum. Occasional shortness of breath. CXR ordered on 02/26to repeat in 8 weeks ReasonCommentsEaracheReasonCommentsFollow-up6 monthSpecialtyDiagnoses / ProceduresReferred By ContactReferred To ContactCardiology Diagnoses Coronary artery disease involving mi'kmaq coronary artery of mi'kmaq heart without angina pectoris Procedures Follow Up In Cardiology Rene Cortez MD [address] [place] [address] 2, [address] [address] Phone: tel: fax: Rene Cortez MD [address] [place] [address] 2, [address] [address] Phone: tel: fax: Referral IDStasierra vista hospitalCentra [facility] DateExpiration DateVisits RequestedVisits [id number]/23/20245/[id number] [facility] dx: COPD exacerbation 2ndry viral infection. He was prescribed Z-Santos, Prednisone and Mucinex. He does continue to have mucus. He is not using Mucinex, reports it does not work.RashRight axillaMassMid back for 2-3 weeks, painful, hardReasonCommentsSuspicious Skin LesionRashSpecialtyDiagnoses / ProceduresReferred By ContactReferred To ContactDermatology Diagnoses Skin lesion of back Sebaceous cyst Procedures [facility] OFFICE/OUTPATIENT [facility] MDM 60 MINUTES Sally Mancuso NP [address] [place] [address] Phone: tel: fax: Marybeth Long MD [address] [place] [address] Phone: tel: fax: Referral IDStatusCentra [facility] DateExpiration DateVisits RequestedVisits [id number] Consult and Treat /[id number] Month Follow Up of Chronic ConditionsMedicare Annual Wellness Visit SubsequentER [facility]. He was advised to resume Lasix, which was discontinued in the past due to low sodium levels.ReasonCommentsFollow-[facility] [place] low ef (unrecognized sect ion and content) No Status Records FoundNo Status Records FoundNo Status Records FoundNo Status Records FoundNo Status Records FoundNo Status Records FoundNo Status Records FoundNo Status Records FoundNo Status Records FoundNo Status Records FoundNo Status Records Found INFORMATION SOURCE (unrecogn ized section and content) DATE CREATED AUTHOR 07/16/2022 [facility] [employer] DATE CREATED AUTHOR AUTHOR'S ORGANIZ ATION 09/09/2022 [employer] DATE CREATED AUTHOR AUTHOR'S ORGANIZ ATION 11/14/2022 [facility] DATE CREATED AUTHOR AUTHOR'S ORGANIZ ATION 02/12/2023 [facility] DATE CREATED AUTHOR AUTHOR'S ORGANIZ ATION 02/28/2023 [facility] DATE CREATED AUTHOR AUTHOR'S ORGANIZ ATION 09/29/2024 [facility] DATE CREATED AUTHOR AUTHOR'S ORGANIZ ATION 11/26/2024 [facility] DATE CREATED AUTHOR AUTHOR'S ORGANIZ ATION 12/15/2024 [facility] DATE CREATED AUTHOR AUTHOR'S ORGANIZ ATION 12/20/2024 [facility] DATE CREATED AUTHOR AUTHOR'S ORGANIZ ATION 02/05/2025 [facility] DATE CREATED AUTHOR AUTHOR'S ORGANIZ ATION 03/16/2025 [facility] Care Teams (unrecognized sec tion and content) Team Status: Active Member Role Status Dates Sera Flower MD Primary Care Provider Active Team Status: Inactive Member Role Status Dates Sera Flower MD Primary Care Provider, Other Provider Active Rene Cortez MDAstuart ProviderActiveTeam MemberRelationshipSpecialtyStart DateEnd Date Sera Flower MD [address] [place] [address] PCP - General02/16/21 Team Status: Inactive Member Role Status Dates Sera Flower MD Primary Care Provider Active St art: June 14, 2023 End: June 14Mac De Santiago ProviderActiveStart: June 14, 2023 End: June 14, 2023Team MemberRelationshipSpecialtyStart DateEnd Date Sera Flower MD [address] [place] [address] PCP - Human05/28/22 Sera Flower MD [address] [place] [address] PCP - GeneralInternal Medicine10/03/22Team MemberRelationshipSpecialtyStart Date End Date Sera Flower MD [address] [place] [address] PCP - General02/16/21Team MemberRelationshipSpecialtyStart DateEnd Sera Flower MD [address] [place] [address] PCP - Humana1 Sera Flower MD [address] [place] [address] PCP - GeneralInternal Medicine10/03/22 Tootie Jacobson RN [address] [place] [address] Registered NurseInternal Medicine08/10/23 Rene Cortez MD [address] [place] [address] [address] [place] [address] Referring PhysicianCardiology09/05/23Team MemberRelationshipSpecialtyStart Date End Sera Flower MD [address] [place] [address] PCP - Humana1 Sera Flower MD [address] [place] [address] PCP - GeneralInternal Medicine10/03/22 Tootie Jacobson RN [address] [place] [address] Registered NurseInternal Medicine08/09/2410 Rene Cortez MD [address] [place] [address] [address] [place] [address] Referring PhysicianCardiology09/05/23Team MemberRelationshipSpecialtyStart Date End Date Sera Flower MD [address] [place] [address] PCP - Humana1 Sera Flower MD [address] [place] [address] PCP - GeneralInternal Medicine10/03/22 Rene Cortez MD [address] [facility] [address] [place] [address] Referring PhysicianCardiology09/05/23 Orquidea Carreon, DOUG Registered NurseFamily Bukklfrw84/1/24Te MemberRelationshipSpecialtyStart Date End Date Sera Flower MD [address] [place] [address] PCP - Human05/28/22 Sera Flower MD [address] [place] [address] PCP - GeneralInternal Medicine10/03/22 Tootie Jacobson, DOUG [address] [place] [address] Registered NurseInternal Medicine08/10/23 Rene Cortez MD [address] [facility] [address] [place] [address] Referring PhysicianCardiology09/05/23Team MemberRelationshipSpecialtyStart Date End Date Sera Flower MD [address] [place] [address] PCP - Humana1 Sera Flower MD [address] [place] [address] PCP - GeneralInternal Medicine10/03/22 Tootie Jacobson RN [address] [place] [address] Registered NurseInternal Medicine08/10/23 Rene Cortez MD [address] [place] [address] [address] [place] [address] Referring PhysicianCardiology09/05/23Team MemberRelationshipSpecialtyStart Date End Date Sera Flower MD [address] [place] [address] PCP - Humana1 Sera Flower MD [address] [place] [address] PCP - GeneralInternal Medicine10/03/22 Tootie Jacobson RN [address] [place] [address] Registered NurseInternal Medicine08/10/23 Rene Cortez MD [address] [place] [address] [address] [place] [address] Referring PhysicianCardiology09/05/23Team MemberRelationshipSpecialtyStart Date End Date Sear Flower MD [address] [place] [id number] PCP - General9Team MemberRelationshipSpecialtyStart [facility] Sera Flower MD [address] [place] [address] PCP - Human05/28/22 Sera Flower MD [address] [place] [address] PCP - GeneralInternal Medicine10/03/22 Rene Cortez MD [address] [facility] [address] [place] [address] Referring PhysicianCardiology09/05/23 Orquidea Shah RN Registered NurseInternal Medicine06/03/24Team MemberRelationshipSpecialtyStart DateCitizens Medical Center Sera Flower MD [address] [place] [address] PCP - Human05/28/22 Sera Flower MD [address] [place] [address] PCP - GeneralInternal Medicine10/03/22 Rene Cortez MD [address] [facility] [address] [place] [address] Referring PhysicianCardiology09/05/23 Orquidea Shah RN Registered NurseInternal Medicine06/03/24Team MemberRelationshipSpecialtyStart [facility] Sera Flower MD [address] [place] [address] PCP - Humana1 Sera Flower MD [address] [place] [address] PCP - GeneralInternal Medicine10/03/22 Rene Cortez MD [address] [facility] [address] [place] [address] Referring PhysicianCardiology09/05/23 [facility]qu[facility] RN Registered NurseInternal Medicine06/03/24Team MemberRelationshipSpecialtyStart DateEnd Date Sera Flower MD [address] [place] [address] PCP - Humana1 Sera Flower MD [address] [place] [address] PCP - GeneralInternal Medicine10/03/22 Rene Cortez MD [address] [facility] [place] [address] Referring PhysicianCardiology09/05/23 Orquidea Shah, DOUG Registered NurseInternal Medicine06/03/24 Chalino Phoenix MD [address] [facility] [address] [place] [address] Referring PhysicianPulmonary Disease09/24/24 John Baptiste MD [address] [facility] [place] [address] Referring PhysicianUrology09/24/24 Gurjit Busby NP [address] [place] [address] Nurse PractitionerFamily Medicine09/24/24 [facility]09/24/24 Team Status: [...] DateEnd Date Torres Pate MD [address] [facility] [place] [address] PCP - GeneralFamily Medicine10/24/24 Team Status: Active [...] DateEnd Date Sera Flower MD [address] [facility] [address] [place] [address] PCP - Human/ Sera Flower MD [address] [facility] [address] [place] [address] PCP - GeneralInternal Medicine Unallocated, Nombar Landis MD [address] [facility] [place] [address] PCP - GeneralFamily Medicine Torres Pate MD [address] [facility] [place] [address] PCP - GeneralFamily Medicine10/17/24 Tootie Jacobson, DOUG [address] [place] [address] Registered NurseInternal Medicine08/09/2410/06/20 Rene Cortez MD [address] [place] [address] Referring PhysicianCardiology09/05/23 Orquidea Carreon RN [address] [place] [address] Registered NurseFamily Gkbrofwj34/1/241 Orquidea Shah RN [address] [place] [address] Registered NurseInternal Medicine Chalino Phoenix DO [address] [place] [address] Referring PhysicianPulmonary Disease09/24/24 John Baptiste MD [address] [facility] [address] Referring PhysicianUrology09/24/24 Gurjit Busby NP [address] [place] [address] Nurse PractitionerFamily Medicine09/24/24 [facility] Optometry09/24/24 Goals (unrecognized [...] BE BASED ON THE PRIMARY CLINICAL RECORDS. [facility] [employer] [facility]. provides no warranty or guarantee of the accuracy or completeness of information in this document.
[2025-04-23] MEDS: AZITHROMYCIN 500 MG in 0.9 % SODIUM CHLORIDE 250 ML 250 MG IV (09:50)
--- NOTE | 2025-04-23 11:10 | PM.HP ---
HPI H&P: HPI History of Present Illness Chief complaint: SOB, COPD, EXACERBATION Narrative: Mr. Panchal is a 70-year-old gentleman who came in with shortness of breath, cough productive to greenish sputum, shortness of breath, dyspnea on exertion. No fever or chills. No chest pain or palpitation. Patient is known to have COPD. Has had multiple imaging of the chest which showed interstitial edema, probable pulmonary fibrosis. He used to see Dr. Morgan but no longer seeing anyone. Not sure if patient had PFTs before. Has had echocardiogram which showed ejection fraction of 25%. Patient admitted that he is not taking his medication due to side effect making him sick. He stopped taking Entresto on his own. History of CAD with history of multiple stents in the past. Patient is not on antiplatelets and/or anticoagulation. Progressive lower extremity swelling. Opioid HPI Opioid Management Most Recent Pain and Opioid Data: Last Pain Scale 5 02/24/25, 12:10 Last Pain Assessment Today, 11:00 Last ORT Total Score 0 Today, 09:54 Last ORT Risk Category Low Risk Today, 09:54 Review of Systems ROS Status of ROS 10 or more systems reviewed and unremarkable except as noted in history and below PFSH PFS Medical History Pneumonia due to COVID-19 virus ?U07.1 - COVID-19 (ICD-10) ?J12.82 - Pneumonia due to coronavirus disease 2019 (ICD-10) COVID-19 ?U07.1 - COVID-19 (ICD-10) Acute on chronic congestive heart failure ?I50.9 - Heart failure, unspecified (ICD-10) COPD exacerbation ?J44.1 - Chronic obstructive pulmonary disease with (acute) exacerbation (ICD-10) Congestive heart failure ?I50.9 - Heart failure, unspecified (ICD-10) BPH (benign prostatic hyperplasia) ?N40.0 - Benign prostatic hyperplasia without lower urinary tract symptoms (ICD-10) CAD (coronary artery disease) ?I25.10 - Atherosclerotic heart disease of [place] coronary artery without angina pectoris (ICD-10) GERD (gastroesophageal reflux disease) ?K21.9 - Gastro-esophageal reflux disease without esophagitis (ICD-10) Hypertension ?I10 - Essential (primary) hypertension (ICD-10) COPD (chronic obstructive pulmonary disease) ?J44.9 - Chronic obstructive pulmonary disease, unspecified (ICD-10) Bronchitis ?J40 - Bronchitis, not specified as acute or chronic (ICD-10) Emphysema of lung ?J43.9 - Emphysema, unspecified (ICD-10) Heart attack ?I21.9 - Acute myocardial infarction, unspecified (ICD-10) COPD exacerbation ?J44.1 - Chronic obstructive pulmonary disease with (acute) exacerbation (ICD-10) COVID-19 ?U07.1 - COVID-19 (ICD-10) Surgical History H/O sinus surgery ?Z98.890 - Other specified postprocedural states (ICD-10) H/O shoulder surgery ?Z98.890 - Other specified postprocedural states (ICD-10) H/O heart artery stent ?Z95.5 - Presence of coronary angioplasty implant and graft (ICD-10) Family History Aunt Family history of cancer Mother Family history of diabetes mellitus Brother Family history of hypertension Father Family history of hypertension Social History Within the past year, how often did you have a drink containing alcohol: never Score interpretation: A score less than 4 is consistent with normal alcohol consumption. 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 Known occupational exposures/hazards: No Highest level of school completed/degree received: high school graduate Are you now , , , , never or living with a partner: In a typical week, how many times do you talk on the telephone with family, friends, or neighbors: 3 or more times per week How often do you get together with friends or relatives: 3 or more times per week How often do you attend religious or roman catholic services: never Little interest or pleasure in doing things: not at all Feeling down, depressed, or hopeless: not at all Feel stressed/tense/nervous/anxious/difficulty sleeping: not at all Do you think of yourself as: straight/heterosexual Gender Identity: male Meds Home Medications and Allergies Home Medications ?Medication ?Instructions ?Recorded ?Confirmed ?Type tamsulosin 0.4 mg capsule 0.8 mg PO .qhs 07/22/23 04/23/25 History albuterol sulfate 90 mcg/actuation 2 inh inhalation Q6H PRN shortness 12/25/23 04/23/25 Rx aerosol inhaler (Ventolin HFA) of breath or wheezing #6.7 grams furosemide 40 mg tablet (Lasix) 40 mg PO DAILY 10/09/24 04/23/25 History fluticasone propionate 50 2 spray intranasal QD #16 grams 10/13/24 04/23/25 Rx mcg/actuation nasal spray,suspension fluticasone fur. 200 mcg-umeclid 1 inh inhalation Q24H 04/23/25 04/23/25 History 62.5 mcg-vilant 25 mcg inhalat.powder (Trelegy Ellipta) fluticasone propionate 230 2 inh inhalation Q12H 04/23/25 04/23/25 History mcg-salmeterol 21 mcg/actuation HFA inhaler (Advair HFA) ipratropium 0.5 mg-albuterol 3 mg 3 ml inhalation Q8H PRN shortness 04/23/25 04/23/25 History (2.5 mg base)/3 mL nebulization of breath or wheezing soln metoprolol succinate 25 mg 25 mg PO DAILY 04/23/25 04/23/25 History tablet,extended release 24 hr Allergies Allergy/AdvReac Type Severity Reaction Status Date / Time codeine AdvReac Intermediate Hallucinati Verified 04/23/25 06:50 ng Exam Narrative Exam Narrative: [pt is awake and alert. oriented to place, time and person, mild tachypnea, oxygen, morbidly obese, central obesity HEENT: [place] conjunctiva and NL buccal mucosa Neck: Supple, no tenderness Endocrine: No Thyromegaly. Vascular: No JVD or carotid bruit. Lymphatic: No cervical lymphadenopathy. Chest: Bilateral crackles Heart RRR, no extra sound or murmur. Abd: Soft, no tenderness, no rebound and no rigidity. Increase abd girth therefore clinically I could not exclude the possibility of intra abd mass or organomegaly. LE: No cyanosis or clubbing, no varices. +2 pitting edema in both legs Neuro: A A O. Nl speech, comprehension and attention. Nl and symetrical motor and tone examination through out. []] Constitutional Vital Signs, click to edit/add: Last Vital Signs Temp 97.8 F 04/23/25 09:39 Pulse 88 04/23/25 09:39 Resp 20 04/23/25 09:39 BP 139/99 H 04/23/25 09:39 Pulse Ox 95 04/23/25 09:39 O2 Del Method Nasal Cannula 04/23/25 09:39 O2 Flow Rate 2 04/23/25 09:39 Results Labs Labs: Short CBC 04/23/25 Range/Units 06:50 WBC 9.1 (4.0-11.0) 10^3/uL Hgb 13.2 L (14.0-18.0) g/dL Hct 38.3 L (42.0-54.0) % Plt Count 252 (150-450) 10^3/uL BMP 04/23/25 06:50 Sodium 137 Potassium 3.8 Chloride 101 Carbon Dioxide 24.6 BUN 10.0 Creatinine 0.87 Glucose 104 Calcium 8.5 Assessment and Plan Assessment and Plan (1) Acute exacerbation of chronic obstructive pulmonary disease: (2) Acute combined systolic and diastolic heart failure: Plan Acute on chronic hypoxic respiratory failure which is multifactorial secondary to the following Acute on chronic systolic and diastolic heart failure. Elevated BNP with +2 pitting edema in both legs Acute on chronic COPD exacerbation. Community-acquired bronchitis/pneumonia. Patient is coughing up greenish sputum. Suspect underlying interstitial lung disease and/or pulmonary fibrosis. Cardiomyopathy. Echocardiogram completed in September showed EF 25% unknown etiology. Could be ischemic patient had few stents in the past. He is not on antiplatelets. Mr. Panchal is a 70-year-old gentleman who came in with shortness of breath, cough and congestion. I reviewed his chest x-ray and prior imaging. He has had ongoing interstitial lung changes. He may have pulmonary fibrosis. Patient used to follow-up with Dr. Morgan before he moved his location. Not sure if patient had PFTs before and/or extensive evaluation for pulmonary fibrosis and/or interstitial lung disease. All he knows is that he has emphysema. COVID, influenza A and B are negative. There could be possibility that patient has viral pneumonia with other viruses such as adenovirus, parainfluenza, non-COVID's are, RSV, rhino, mid human pneumo virus and others not being processed here at [place]. Echocardiogram completed in September showed ejection fraction 25%. Patient admitted that he is not taking Entresto due to medication making him sick Patient is not on MRA, JACQUELINE or ARB or SGLT I had excepted to admit patient to the medical floor I started him on intravenous Lasix and potassium. Input and output measurement. I started him on albuterol, Atrovent, ceftriaxone, doxycycline and Solu-Medrol. Avoid quinolones and or macrolide due to cardiomyopathy and increased risk having cardiac dysrhythmia. Patient stated that he had extensive cardiac testing in [place] last week. Is unable to provide details. We will try to get the records from [place]. Patient will likely require frequent and a comprehensive cardiopulmonary monitoring and additional testing to prevent relapse, decompensation, rehospitalization other medical implications. The degree of his previous pulmonary evaluation is unknown. I strongly recommend PFTs and probable lung biopsy. Enlarging mediastinal hilar lymphadenopathy seen on CT Unknown etiology. Could be inflammatory. Could be neoplastic. This will need to be investigated. Could be investigated electively in the outpatient setting by PCP in collaboration with pulmonary and/or oncology. I would check JACQUELINE level rule out sarcoidosis. Noncompliance. Patient stopped Entresto on his own. He also stated that he stopped a few other medications that were making him sick. Unable to give me the names. Counseling and education about compliance will need to take place over the next few days. Previously noted elevated PSA at 6. Not sure if patient was investigated for this further. He is on Flomax. Not sure who started that PCP or urology. Patient will likely need to have comprehensive prostate evaluation if not been done, rule out the possibility of BPH versus malignancy. DVT prophy Lovenox subcu. Chronic, subacute medical conditions not listed above, abnormal labs and imaging, incidental findings seen on labs and or imaging. These would need to be addressed. Could be addressed later on or in the outpatient setting by PCP collaboration with other needed outpatient providers when time and condition are appropriate. I discussed this case with his at the bedside. Very nice people.
[2025-04-23] MEDS: METOPROLOL SUCCINATE 25 MG TAB.ER.24H PO (11:42)
[2025-04-23] MEDS: FUROSEMIDE 40 MG/4 ML VIAL IVP ×2 (11:42→22:19)
[2025-04-23] MEDS: POTASSIUM CHLORIDE 10 MEQ ER TABLET 20 MEQ PO ×2 (11:42→22:19)
[2025-04-23] MEDS: ENOXAPARIN SODIUM 40 MG/0.4 ML SYRINGE SUBQ (11:43)
[2025-04-23] MEDS: GUAIFENESIN 200 MG/DEXTROMETHORPHAN 20 MG 10 ML UNIT DOSE CUP 15 ML PO ×3 (11:43→22:18)
[2025-04-23] MEDS: IPRATROPIUM/ALBUTEROL SULFATE 3 ML AMPUL.NEB IH ×2 (15:44→20:28)
[2025-04-23] MEDS: METHYLPREDNISOLONE SOD SUCC PF 40 MG/ML VIAL IVP (20:52)
[2025-04-23] MEDS: DOXYCYCLINE HYCLATE 100 MG in 0.9 % SODIUM CHLORIDE 100 ML IV (20:53)
[2025-04-23] MEDS: TAMSULOSIN HCL 0.4 MG CAPSULE 0.8 MG PO (22:19)
[2025-04-24] VITALS (22 sets, daily range): BP systolic 117–153; BP diastolic 51–102; PULSE 69–94; TEMP 36.3–36.7; O2SAT 94–97
[2025-04-24 05:57] LABS: Hematocrit 36.9 % (42.0-54.0); Hemoglobin 12.1 g/dL (14.0-18.0); Mean Corpuscular HGB Conc 32.8 g/dL (29.9-35.2); Mean Corpuscular Hemoglobin 26.9 pg (25.9-34.0); Mean Corpuscular Volume 82.2 fL (80.0-94.0); Platelet Count 240 10^3/uL (150-450); Red Blood Count 4.49 10^6/uL (4.70-6.10); White Blood Count 14.1 10^3/uL (4.0-11.0)
[2025-04-24] MEDS: GUAIFENESIN 200 MG/DEXTROMETHORPHAN 20 MG 10 ML UNIT DOSE CUP 15 ML PO ×3 (06:02→21:37)
[2025-04-24 06:19] LABS: Alanine Aminotransferase 60 U/L (16-63); Albumin Globulin Ratio 1.0; Albumin Level 3.0 g/dL (3.4-5.0); Alkaline Phosphatase 82 U/L (46-116); Anion Gap 12.1; Aspartate Amino Transferase 23 U/L (15-37); Blood Urea Nitrogen 12.0 mg/dL (7.0-18.0); Calcium 8.7 mg/dL (8.5-10.1); Carbon Dioxide 24.3 mmol/L (21.0-32.0); Chloride 102 mmol/L (98-107); Estimated GFR (African America >60 (>=60 mL/min/1.73m^2); Estimated GFR (Non-African Ame >60 (>=60 mL/min/1.73m^2); Globulin 3.1 g/dL; Glucose 149 mg/dL (74-106); Potassium 4.4 mmol/L (3.5-5.1); Sodium 134 mmol/L (136-145); Total Protein 6.1 g/dL (6.4-8.2)
[2025-04-24 06:28] LABS: NT Pro B Type Natriuretic Pept 1646.0 pg/mL (<=900.0)
--- NOTE | 2025-04-24 08:15 | CM.NOTE ---
Rounds made with Dr. Macedo, discussed plan of care with pt. No discharge today, continue treatment as ordered. Pt up ad del in room. Pt does have home oxygen.
[2025-04-24] MEDS: IPRATROPIUM/ALBUTEROL SULFATE 3 ML AMPUL.NEB IH ×3 (09:08→20:47)
[2025-04-24] MEDS: METHYLPREDNISOLONE SOD SUCC PF 40 MG/ML VIAL IVP ×2 (09:23→21:37)
[2025-04-24] MEDS: ENOXAPARIN SODIUM 40 MG/0.4 ML SYRINGE SUBQ (09:23)
[2025-04-24] MEDS: DOXYCYCLINE HYCLATE 100 MG in 0.9 % SODIUM CHLORIDE 100 ML IV ×2 (09:24→21:37)
[2025-04-24] MEDS: METOPROLOL SUCCINATE 25 MG TAB.ER.24H PO (09:24)
[2025-04-24] MEDS: 0.9 % SODIUM CHLORIDE 250 ML 10 ML IV (09:24)
[2025-04-24] MEDS: FUROSEMIDE 20 MG/2 ML VIAL IVP ×3 (09:24→21:37)
--- NOTE | 2025-04-24 09:40 | P.PN_ITS ---
Progress Note: Subjective Subjective Interval history: Patient is feeling better. Less shortness of breath. Less cough and congestion Exam Narrative Exam Narrative: [pt is awake and alert. oriented to place, time and person, mild tachypnea, oxygen, morbidly obese, central obesity HEENT: [place] conjunctiva and NL buccal mucosa Neck: Supple, no tenderness Endocrine: No Thyromegaly. Vascular: No JVD or carotid bruit. Lymphatic: No cervical lymphadenopathy. Chest: Bilateral crackles Heart RRR, no extra sound or murmur. Abd: Soft, no tenderness, no rebound and no rigidity. Increase abd girth therefore clinically I could not exclude the possibility of intra abd mass or organomegaly. LE: No cyanosis or clubbing, no varices. +1 pitting edema in both legs Neuro: A A O. Nl speech, comprehension and attention. Nl and symetrical motor and tone examination through out. []] Constitutional Vital Signs, click to edit/add: Last Vital Signs Temp 97.7 F 04/24/25 08:00 Pulse 88 04/24/25 08:00 Resp 18 04/24/25 08:00 BP 130/80 04/24/25 08:00 Pulse Ox 96 04/24/25 08:00 O2 Del Method Nasal Cannula 04/24/25 08:00 O2 Flow Rate 1 04/24/25 08:00 Progress Note: Objective Labs Labs: Short CBC 04/24/25 Range/Units 04:52 WBC 14.1 H (4.0-11.0) 10^3/uL Hgb 12.1 L (14.0-18.0) g/dL Hct 36.9 L (42.0-54.0) % Plt Count 240 (150-450) 10^3/uL BMP 04/24/25 04:52 Sodium 134 L Potassium 4.4 Chloride 102 Carbon Dioxide 24.3 BUN 12.0 Creatinine 0.90 Glucose 149 H Calcium 8.7 Liver Function 04/24/25 Range/Units 04:52 Total Bilirubin 0.4 (0.2-1.0) mg/dL AST 23 (15-37) U/L ALT 60 (16-63) U/L Alkaline Phosphatase 82 (46-116) U/L Albumin 3.0 L (3.4-5.0) g/dL Progress Note: A&P Assessment and Plan (1) Acute exacerbation of chronic obstructive pulmonary disease: (2) Acute combined systolic and diastolic heart failure: Plan Acute on chronic hypoxic respiratory failure which is multifactorial secondary to the following Acute on chronic systolic and diastolic heart failure. Elevated BNP with +2 pitting edema in both legs Acute on chronic COPD exacerbation. Community-acquired bronchitis/pneumonia. Patient is coughing up greenish sputum. Suspect underlying interstitial lung disease and/or pulmonary fibrosis. Cardiomyopathy. Echocardiogram completed in September showed EF 25% unknown etiology. Could be ischemic patient had few stents in the past. He is not on antiplatelets. Mr. Panchal is a 70-year-old gentleman who came in with shortness of breath, cough and congestion. I reviewed his chest x-ray and prior imaging. He has had ongoing interstitial lung changes. He may have pulmonary fibrosis. Patient used to follow-up with Dr. oMrgan before he moved his location. Not sure if patient had PFTs before and/or extensive evaluation for pulmonary fibrosis and/or interstitial lung disease. All he knows is that he has emphysema. COVID, influenza A and B are negative. There could be possibility that patient has viral pneumonia with other viruses such as adenovirus, parainfluenza, non- COVID's are, RSV, rhino, mid human pneumo virus and others not being processed here at [place]. Echocardiogram completed in September showed ejection fraction 25%. Patient admitted that he is not taking Entresto due to medication making him sick Patient is not on MRA, JACQUELINE or ARB or SGLT I had excepted to admit patient to the medical floor I started him on intravenous Lasix and potassium. Input and output measurement. I started him on albuterol, Atrovent, ceftriaxone, doxycycline and Solu-Medrol. Avoid quinolones and or macrolide due to cardiomyopathy and increased risk having cardiac dysrhythmia. Patient stated that he had extensive cardiac testing in [place] last week. Is unable to provide details. We will try to get the records from [place]. Patient will likely require frequent and a comprehensive cardiopulmonary monitoring and additional testing to prevent relapse, decompensation, rehospitalization other medical implications. The degree of his previous pulmonary evaluation is unknown. I strongly recommend PFTs and probable lung biopsy. 04/24: Patient is feeling better. Continue diuresis. Thus far patient is 2.5 L negative balance Patient is on Toprol. I started the spironolactone. Subsequently patient would need to be on JACQUELINE or ARB or ARNI. Patient stated that he stopped taking Entresto on his own. Does not make him feel good. We will start GDMT once he achieves euvolemic state. Enlarging mediastinal hilar lymphadenopathy seen on CT Unknown etiology. Could be inflammatory. Could be neoplastic. This will need to be investigated. Could be investigated electively in the outpatient setting by PCP in collaboration with pulmonary and/or oncology. I would check JACQUELINE level rule out sarcoidosis. Noncompliance. Patient stopped Entresto on his own. He also stated that he stopped a few other medications that were making him sick. Unable to give me the names. Counseling and education about compliance will need to take place over the next few days. Previously noted elevated PSA at 6. Not sure if patient was investigated for this further. He is on Flomax. Not sure who started that PCP or urology. Patient will likely need to have comprehensive prostate evaluation if not been done, rule out the possibility of BPH versus malignancy. DVT prophy Lovenox subcu. Chronic, subacute medical conditions not listed above, abnormal labs and imaging, incidental findings seen on labs and or imaging. These would need to be addressed. Could be addressed later on or in the outpatient setting by PCP collaboration with other needed outpatient providers when time and condition are appropriate.
--- NOTE | 2025-04-24 10:13 | SWNOTE1 ---
SW met with pt to discuss dc needs. Pt lives at home with his . Pt is independent at home and does not use any devices to ambulate. Pt does have home oxygen. He stated he has concentrator, tubing, and tanks. Pt stated it is set at 2 liters. Pt does not always wear it. Pt is unsure of the company he has it from. SW to look at previous admissions. Pt has no anticipated discharge needs at this time. SW to follow as needed. SW reviewed chart from a previous visit for continuation of care. Pt was prescribed 2 liters nasal canula continuous from [facility] on 10/21/24. VICTORIANO updated the nurse and CM.
[2025-04-24] MEDS: SPIRONOLACTONE 25 MG TABLET PO (10:57)
--- NOTE | 2025-04-24 11:31 | CM.NOTE ---
Important Message From Medicare discussed with pt, pt verbalizes understanding and signs paper. Original given to pt and copy placed in pt's chart.
[2025-04-24] MEDS: POTASSIUM CHLORIDE 10 MEQ ER TABLET 30 MEQ PO (16:08)
[2025-04-24] MEDS: TAMSULOSIN HCL 0.4 MG CAPSULE 0.8 MG PO (21:38)
[2025-04-24] MEDS: TEMAZEPAM 15 MG CAPSULE PO (22:33)
[2025-04-25] VITALS (25 sets, daily range): BP systolic 132–136; BP diastolic 64–88; PULSE 75–91; TEMP 36.3–37.2; O2SAT 91–98
[2025-04-25] MEDS: GUAIFENESIN 200 MG/DEXTROMETHORPHAN 20 MG 10 ML UNIT DOSE CUP 15 ML PO ×3 (05:31→21:37)
[2025-04-25 06:43] LABS: Anion Gap 10.5; Blood Urea Nitrogen 16.0 mg/dL (7.0-18.0); Calcium 8.7 mg/dL (8.5-10.1); Carbon Dioxide 28.0 mmol/L (21.0-32.0); Chloride 101 mmol/L (98-107); Estimated GFR (African America >60 (>=60 mL/min/1.73m^2); Estimated GFR (Non-African Ame >60 (>=60 mL/min/1.73m^2); Glucose 163 mg/dL (74-106); Potassium 4.5 mmol/L (3.5-5.1); Sodium 135 mmol/L (136-145)
--- NOTE | 2025-04-25 07:45 | XR_ITS ---
The [address] [address] Patient Name: DEMARCUS CALDERON MRN: [id number] date: 1955 Sex: M Assigned Patient Location: [place] Current Patient Location: [place] Accession/Order Number: [id number] Exam Date: 04/25/2025 08:32 Report Date: 04/25/2025 08:59 At the request of: CAMPBELL AGUAYO MD Procedure: XR chest 1V XR chest 1V 04/25/2025 8:42 AM SIGNS AND SYMPTOMS: ^CHF. Comparison to last PROTOCOL: Frontal radiograph of the chest COMPARISON: 04/23/2025 FINDINGS: The trachea is midline. There is cardiomegaly. There is vascular and interstitial prominence with hazy airspace opacities bilaterally. This is unchanged when compared to the prior exam. The bony thorax is intact. XR/XR chest 1V IMPRESSION: Unchanged chest. Impression dictated by: Jb Garber M.D. 04/25/2025 8:59 AM Dictation Location: [place] [address] Electronically authenticated by: [id number] Y Date: 04/25/2025 08:59
--- NOTE | 2025-04-25 09:09 | P.PN_ITS ---
Progress Note: Subjective Subjective Interval history: Patient is feeling better. Less shortness of breath. Less cough and congestion Exam Narrative Exam Narrative: [pt is awake and alert. oriented to place, time and person, No tachypnea, oxygen, morbidly obese, central obesity HEENT: [place] conjunctiva and NL buccal mucosa Neck: Supple, no tenderness Endocrine: No Thyromegaly. Vascular: No JVD or carotid bruit. Lymphatic: No cervical lymphadenopathy. Chest: Resolution of the bilateral crackles compared to admission state Heart RRR, no extra sound or murmur. Abd: Soft, no tenderness, no rebound and no rigidity. Increase abd girth therefore clinically I could not exclude the possibility of intra abd mass or organomegaly. LE: No cyanosis or clubbing, no varices. Resolution of +2 pitting edema in both legs Neuro: A A O. Nl speech, comprehension and attention. Nl and symetrical motor and tone examination through out. []] Constitutional Vital Signs, click to edit/add: Last Vital Signs Temp 97.4 F L 04/25/25 04:00 Pulse 75 04/25/25 07:48 Resp 14 04/25/25 04:00 BP 136/64 04/25/25 04:00 Pulse Ox 96 04/25/25 05:05 O2 Del Method Nasal Cannula 04/25/25 05:05 O2 Flow Rate 1 04/25/25 05:05 Progress Note: Objective Labs Labs: [facility] 04/25/25 06:04 Sodium 135 L Potassium 4.5 Chloride 101 Carbon Dioxide 28.0 BUN 16.0 Creatinine 1.09 Glucose 163 H Calcium 8.7 Progress Note: A&P Assessment and Plan (1) Acute exacerbation of chronic obstructive pulmonary disease: (2) Acute combined systolic and diastolic heart failure: Plan Acute on chronic hypoxic respiratory failure which is multifactorial secondary to the following: Acute on chronic systolic and diastolic heart failure. Elevated BNP with +2 pitting edema in both legs Acute on chronic COPD exacerbation. Community-acquired bronchitis/pneumonia. Patient is coughing up greenish sputum. Suspect underlying interstitial lung disease and/or pulmonary fibrosis. Cardiomyopathy. Echocardiogram completed in September showed EF 25% unknown etiology. Could be ischemic patient had few stents in the past. He is not on antiplatelets. I reviewed the cardiac MRI he had in [place] recently showing moderate to severe left ventricular dysfunction as well as evidence of ischemic changes involving less than 50% of the myocardium. Coronary artery disease. Mr. Panchal is a 70-year-old gentleman who came in with shortness of breath, cough and congestion. I reviewed his chest x-ray and prior imaging. He has had ongoing interstitial lung changes. He may have pulmonary fibrosis. Patient used to follow-up with Dr. Morgan before he moved his location. Not sure if patient had PFTs before and/or extensive evaluation for pulmonary fibrosis and/or interstitial lung disease. All he knows is that he has emphysema. COVID, influenza A and B are negative. There could be possibility that patient has viral pneumonia with other viruses such as adenovirus, parainfluenza, non- COVID's are, RSV, rhino, mid human pneumo virus and others not being processed here at [place]. Echocardiogram completed in September showed ejection fraction 25%. Patient admitted that he is not taking Entresto due to medication making him sick Patient is not on MRA, JACQUELINE or ARB or SGLT I had accepted to admit patient to the medical floor I started him on intravenous Lasix and potassium. Input and output measurement. I started him on albuterol, Atrovent, ceftriaxone, doxycycline and Solu-Medrol. Avoid quinolones and or macrolide due to cardiomyopathy and increased risk having cardiac dysrhythmia. Patient will likely require frequent and a comprehensive cardiopulmonary monitoring and additional testing to prevent relapse, decompensation, rehospitalization other medical implications. The degree of his previous pulmonary evaluation is unknown. I strongly recommend PFTs and probable lung biopsy. 04/25: Patient is feeling better. Continue diuresis. Thus far patient is 5 L negative balance Patient is on Toprol. I started the spironolactone, changing Lasix to Demadex 10 mg daily. I started him on losartan. Patient stated that he was on Entresto before but he stopped taking it. He does not like the way it makes him feel. Subsequently patient may need to be started on SGLT. I started patient on aspirin 81 mg daily for CAD as well as a statin. BNP is trending down. Pending cardiology evaluation for his heart failure, cardiovascular medication and cardiac ischemic status. May need to have another cardiac catheterization. Patient will need to follow-up with the entry level financial analyst Dr. Morgan To investigate his chronic interstitial changes seen on imaging. May have pulmonary fibrosis. May require bronchoscopy and biopsy. Will definitely need PFTs if it is not been done Enlarging mediastinal hilar lymphadenopathy seen on CT Unknown etiology. Could be inflammatory. Could be neoplastic. This will need to be investigated. Could be investigated electively in the outpatient setting by PCP in collaboration with pulmonary and/or oncology. I would check JACQUELINE level rule out sarcoidosis. Noncompliance. Patient stopped Entresto on his own. He also stated that he stopped a few other medications that were making him sick. Unable to give me the names. Counseling and education about compliance and the need to take her medications as directed and follow-up with outpatient providers Previously noted elevated PSA at 6. Not sure if patient was investigated for this further. He is on Flomax. Not sure who started that PCP or urology. Patient will likely need to have comprehensive prostate evaluation if not been done, rule out the possibility of BPH versus malignancy. DVT prophy Lovenox subcu. Chronic, subacute medical conditions not listed above, abnormal labs and imaging, incidental findings seen on labs and or imaging. These would need to be addressed. Could be addressed later on or in the outpatient setting by PCP collaboration with other needed outpatient providers when time and condition are appropriate.
[2025-04-25] MEDS: IPRATROPIUM/ALBUTEROL SULFATE 3 ML AMPUL.NEB IH ×3 (09:15→20:59)
[2025-04-25] MEDS: DOXYCYCLINE MONOHYDRATE 100 MG CAPSULE PO ×2 (09:30→21:39)
[2025-04-25] MEDS: TORSEMIDE 20 MG TABLET 10 MG PO (09:30)
[2025-04-25] MEDS: PREDNISONE 20 MG TABLET PO ×2 (09:30→21:39)
[2025-04-25] MEDS: ASPIRIN 81 MG TABLET.DR PO (09:30)
[2025-04-25] MEDS: SPIRONOLACTONE 25 MG TABLET PO (09:30)
[2025-04-25] MEDS: ENOXAPARIN SODIUM 40 MG/0.4 ML SYRINGE SUBQ (09:30)
[2025-04-25] MEDS: LOSARTAN POTASSIUM 25 MG TABLET PO (09:30)
[2025-04-25] MEDS: METOPROLOL SUCCINATE 25 MG TAB.ER.24H PO (09:33)
[2025-04-25] MEDS: SENNOSIDES/DOCUSATE SODIUM 1 TAB TABLET PO (13:57)
[2025-04-25] MEDS: ATORVASTATIN CALCIUM 40 MG TABLET PO (21:39)
[2025-04-25] MEDS: TAMSULOSIN HCL 0.4 MG CAPSULE 0.8 MG PO (21:39)
[2025-04-26] VITALS (24 sets, daily range): BP systolic 134–139; BP diastolic 78–90; PULSE 72–87; TEMP 36.4–36.7; O2SAT 92–98
[2025-04-26] MEDS: GUAIFENESIN 200 MG/DEXTROMETHORPHAN 20 MG 10 ML UNIT DOSE CUP 15 ML PO (05:42)
--- NOTE | 2025-04-26 08:45 | P.PN_ITS ---
Progress Note: Subjective Subjective Interval history: Patient is feeling better. In fact patient stated that he feels great. Resolution of the shortness of breath. Less cough and congestion Exam Narrative Exam Narrative: [pt is awake and alert. oriented to place, time and person, No tachypnea, oxygen, morbidly obese, central obesity HEENT: [place] conjunctiva and NL buccal mucosa Neck: Supple, no tenderness Endocrine: No Thyromegaly. Vascular: No JVD or carotid bruit. Lymphatic: No cervical lymphadenopathy. Chest: Complete resolution of the bilateral crackles compared to admission state Heart RRR, no extra sound or murmur. Abd: Soft, no tenderness, no rebound and no rigidity. Increase abd girth therefore clinically I could not exclude the possibility of intra abd mass or organomegaly. LE: No cyanosis or clubbing, no varices. Complete resolution of +2 pitting edema in both legs Neuro: A A O. Nl speech, comprehension and attention. Nl and symetrical motor and tone examination through out. []] Constitutional Vital Signs, click to edit/add: Last Vital Signs Temp 97.5 F L 04/26/25 08:00 Pulse 83 04/26/25 08:19 Resp 17 04/26/25 08:00 BP 139/90 04/26/25 08:00 Pulse Ox 96 04/26/25 08:00 O2 Del Method Room Air 04/26/25 08:00 O2 Flow Rate 2 04/26/25 05:15 Progress Note: A&P Assessment and Plan (1) Acute exacerbation of chronic obstructive pulmonary disease: (2) Acute combined systolic and diastolic heart failure: Plan Acute on chronic hypoxic respiratory failure which is multifactorial secondary to the following: Acute on chronic systolic and diastolic heart failure. Elevated BNP with +2 pitting edema in both legs Acute on chronic COPD exacerbation. Community-acquired bronchitis/pneumonia. Patient is coughing up greenish sputum. Suspect underlying interstitial lung disease and/or pulmonary fibrosis. Cardiomyopathy. Echocardiogram completed in September showed EF 25% unknown etiology. Could be ischemic patient had few stents in the past. He is not on antiplatelets. I reviewed the cardiac MRI he had in [place] recently showing moderate to severe left ventricular dysfunction as well as evidence of ischemic changes involving less than 50% of the myocardium. Coronary artery disease. Mr. Panchal is a 70-year-old gentleman who came in with shortness of breath, cough and congestion. I reviewed his chest x-ray and prior imaging. He has had ongoing interstitial lung changes. He may have pulmonary fibrosis. Patient used to follow-up with Dr. Morgan before he moved his location. Not sure if patient had PFTs before and/or extensive evaluation for pulmonary fibrosis and/or interstitial lung disease. All he knows is that he has emphysema. COVID, influenza A and B are negative. There could be possibility that patient has viral pneumonia with other viruses such as adenovirus, parainfluenza, non- COVID's are, RSV, rhino, mid human pneumo virus and others not being processed here at [facility]. Echocardiogram completed in September showed ejection fraction 25%. Patient admitted that he is not taking Entresto due to medication making him sick Patient is not on MRA, JACQUELINE or ARB or SGLT I had accepted to admit patient to the medical floor I started him on intravenous Lasix and potassium. Input and output measurement. I started him on albuterol, Atrovent, ceftriaxone, doxycycline and Solu-Medrol. Avoid quinolones and or macrolide due to cardiomyopathy and increased risk having cardiac dysrhythmia. Patient will likely require frequent and a comprehensive cardiopulmonary monitoring and additional testing to prevent relapse, decompensation, rehospitalization other medical implications. The degree of his previous pulmonary evaluation is unknown. I strongly recom mend PFTs and probable lung biopsy. 04/26: Patient is feeling much better. Continue diuresis. Switch his IV Lasix to oral Demadex and spironolactone. Thus far patient is 6.7 L negative balance Patient is on Toprol. I started him on losartan. Patient stated that he was on Entresto before but he stopped taking it. He does not like the way it makes him feel. Subsequently patient may need to be started on SGLT. I started patient on aspirin 81 mg daily for CAD as well as a statin. BNP is trending down. Pending cardiology evaluation for his heart failure, cardiovascular medication and cardiac ischemic status. May need to have another cardiac catheterization. Patient will need to follow-up with the [facility] administrator Dr. Morgan To investigate his chronic interstitial changes seen on imaging. May have pulmonary fibrosis. May require bronchoscopy and biopsy. Will definitely need PFTs if it is not been done Enlarging mediastinal hilar lymphadenopathy seen on CT Unknown etiology. Could be inflammatory. Could be neoplastic. This will need to be investigated. Could be investigated electively in the outpatient setting by PCP in collaboration with pulmonary and/or oncology. I would check JACQUELINE level rule out sarcoidosis. Noncompliance. Patient stopped Entresto on his own. He also stated that he stopped a few other medications that were making him sick. Unable to give me the names. Counseling and education about compliance and the need to take her medications as directed and follow-up with outpatient providers Previously noted elevated PSA at 6. Not sure if patient was investigated for this further. He is on Flomax. Not sure who started that PCP or urology. Patient will likely need to have comprehensive prostate evaluation if not been done, rule out the possibility of BPH versus malignancy. DVT prophy Lovenox subcu. Chronic, subacute medical conditions not listed above, abnormal labs and imaging, incidental findings seen on labs and or imaging. These would need to be addressed. Could be addressed later on or in the outpatient setting by PCP collaboration with other needed outpatient providers when time and condition are appropriate.
[2025-04-26] MEDS: LOSARTAN POTASSIUM 25 MG TABLET PO (08:57)
[2025-04-26] MEDS: SPIRONOLACTONE 25 MG TABLET PO (08:57)
[2025-04-26] MEDS: DOXYCYCLINE MONOHYDRATE 100 MG CAPSULE PO ×2 (08:57→21:04)
[2025-04-26] MEDS: PREDNISONE 10 MG TABLET PO ×2 (08:57→21:04)
[2025-04-26] MEDS: ASPIRIN 81 MG TABLET.DR PO (08:57)
[2025-04-26] MEDS: TORSEMIDE 20 MG TABLET 10 MG PO (08:58)
[2025-04-26] MEDS: ENOXAPARIN SODIUM 40 MG/0.4 ML SYRINGE SUBQ (08:58)
[2025-04-26] MEDS: METOPROLOL SUCCINATE 25 MG TAB.ER.24H PO (08:59)
[2025-04-26] MEDS: IPRATROPIUM/ALBUTEROL SULFATE 3 ML AMPUL.NEB IH ×2 (09:41→20:17)
[2025-04-26] MEDS: TAMSULOSIN HCL 0.4 MG CAPSULE 0.8 MG PO (21:03)
[2025-04-26] MEDS: TEMAZEPAM 15 MG CAPSULE PO (21:03)
[2025-04-26] MEDS: ATORVASTATIN CALCIUM 40 MG TABLET PO (21:04)
[2025-04-27] VITALS (17 sets, daily range): BP systolic 109–119; BP diastolic 61–69; PULSE 69–85; TEMP 36.5–36.7; O2SAT 94–95
[2025-04-27 05:34] LABS: Hematocrit 41.5 % (42.0-54.0); Hemoglobin 13.6 g/dL (14.0-18.0); Mean Corpuscular HGB Conc 32.8 g/dL (29.9-35.2); Mean Corpuscular Hemoglobin 27.2 pg (25.9-34.0); Mean Corpuscular Volume 83.0 fL (80.0-94.0); Platelet Count 273 10^3/uL (150-450); Red Blood Count 5.00 10^6/uL (4.70-6.10); White Blood Count 9.1 10^3/uL (4.0-11.0)
[2025-04-27 06:04] LABS: Anion Gap 12.4; Blood Urea Nitrogen 16.0 mg/dL (7.0-18.0); Calcium 8.7 mg/dL (8.5-10.1); Carbon Dioxide 28.1 mmol/L (21.0-32.0); Chloride 103 mmol/L (98-107); Estimated GFR (African America >60 (>=60 mL/min/1.73m^2); Estimated GFR (Non-African Ame >60 (>=60 mL/min/1.73m^2); Glucose 130 mg/dL (74-106); NT Pro B Type Natriuretic Pept 638.0 pg/mL (<=900.0); Potassium 4.5 mmol/L (3.5-5.1); Sodium 139 mmol/L (136-145)
--- NOTE | 2025-04-27 08:00 | CM.NOTE ---
Rounds made with Dr. Macedo, pt will discharge to home today. Pt will have cardiology consult today for further intervention. Pt will f/u with Pulmonology and Cardiology.
[2025-04-27] MEDS: ASPIRIN 81 MG TABLET.DR PO (08:16)
[2025-04-27] MEDS: PREDNISONE 10 MG TABLET PO (08:16)
[2025-04-27] MEDS: SPIRONOLACTONE 25 MG TABLET PO (08:16)
[2025-04-27] MEDS: ENOXAPARIN SODIUM 40 MG/0.4 ML SYRINGE SUBQ (08:16)
[2025-04-27] MEDS: METOPROLOL SUCCINATE 25 MG TAB.ER.24H PO (08:16)
[2025-04-27] MEDS: LOSARTAN POTASSIUM 25 MG TABLET PO (08:16)
[2025-04-27] MEDS: DOXYCYCLINE MONOHYDRATE 100 MG CAPSULE PO (08:16)
[2025-04-27] MEDS: TORSEMIDE 20 MG TABLET 10 MG PO (08:18)
[2025-04-27] MEDS: IPRATROPIUM/ALBUTEROL SULFATE 3 ML AMPUL.NEB IH (09:07)
--- NOTE | 2025-04-27 09:36 | P.DS_ITS ---
DS: Providers Provider Date of admission: 04/23/25 09:27 Primary care physician: Torres Klein MD Consults: 04/24/25 11:17 Consult to Cardiology Routine Reason for consultation: Ischemic cardiomyopathy, abnormal cardiac MRI DS: Diagnosis Discharge Diagnosis (1) Acute exacerbation of chronic obstructive pulmonary disease: (2) Acute combined systolic and diastolic heart failure: Plan As listed above, below and others that are not listed DS: Summary Hospital Course Hospital Course: Mr. Panchal is a 70-year-old gentleman who came in with shortness of breath. He was found to have the following: Acute on chronic hypoxic respiratory failure which is multifactorial secondary to the following: Acute on chronic systolic and diastolic heart failure. Elevated BNP with +2 pitting edema in both legs Acute on chronic COPD exacerbation. Community-acquired bronchitis/pneumonia. Patient is coughing up greenish sputum. Suspect underlying interstitial lung disease and/or pulmonary fibrosis. Cardiomyopathy. Echocardiogram completed in September showed EF 25% unknown etiology. Could be ischemic patient had few stents in the past. He is not on antiplatelets. I reviewed the cardiac MRI he had in [place] recently showing moderate to severe left ventricular dysfunction as well as evidence of ischemic changes involving less than 50% of the myocardium. Coronary artery disease. Acute systolic diastolic heart Cardiomyopathy seen on recent echo and cardiac MRI. Acute respiratory failure Patient had received intravenous diuretics. Patient is 9.6 L negative balance. His BNP had been cut down from 2400 down to 638. Patient was started on beta-ne, ARB, diuretics and MRA. Patient was on ARNI before but stopped it on his own due to not making him feel good. I will also start patient on SGLT inhibitor Patient may need ischemic evaluation Patient may need evaluation for AICD (but patient has not been compliant with GDMT for cardiomyopathy ) Counseling and education about compliance Patient was seen by state historical society director. Please refer to his note for details. He did not recommend patient to have any additional inpatient diagnostic or therapeutic intervention. He cleared the patient to be discharged home on current regimen that I put him on with outpatient follow-up with cardiology. Patient was to follow-up with Dr. Espinoza his state historical society director at [facility]. Chronic interstitial pulmonary changes. I suspect that the patient may have interstitial lung disease. Enlarging mediastinal hilar lymphadenopathy seen on CT I requested JACQUELINE and that came back elevated. Could be possibility of sarcoidosis. Could be inflammatory. Could be neoplastic. Patient will need for show to follow-up with pulmonary. He may need bronchoscopy and tissue biopsy. He may need to have a lymph node biopsy. He will need to have the PFTs This will need to be investigated for sure. Could be investigated electively in the outpatient setting by PCP in collaboration with pulmonary and/or oncology. We will arrange for patient to follow-up with pulmonary. Positive D-dimer CTA is negative for pulmonary embolism Venous studies negative for DVT. No indication to start anticoagulation. Positive D-dimer could indicate possibility of underlying malignancy. Given his hilar and mediastinal lymphadenopathy, the patient would definitely require comprehensive malignancy workup to be handled electively in the outpatient setting by PCP in collaboration with other needed outpatient providers such as heme-onc and pulmonary. Noncompliance. Patient stopped Entresto on his own. He also stated that he stopped a few other medications that were making him sick. Unable to give me the names. Counseling and education about compliance and the need to take her medications as directed and follow-up with outpatient providers Previously noted elevated PSA at 6. Not sure if patient was investigated for this further. He is on Flomax. Not sure who started that PCP or urology. Patient will likely need to have comprehensive prostate evaluation if not been done, rule out the possibility of BPH versus malignancy. DVT prophy Lovenox subcu. Chronic, subacute medical conditions not listed above, abnormal labs and imaging, incidental findings seen on labs and or imaging. These would need to be addressed. Could be addressed later on or in the outpatient setting by PCP collaboration with other needed outpatient providers when time and condition are appropriate. Patient has multiple complex medical issues as listed above and others that are not listed. All appear to be stable. I do not have any clear or strong clinical justification to extend inpatient hospitalization. Patient however will require close and frequent monitoring as well as additional work-up, investigation and therapeutic intervention that could take place from this point on post discharge. That is to prevent relapse, decompensation, rehospitalizatio n and other medical implications. Discharge medications as listed are not final or set in stone. Primary care doctor and other out patient providers will need to titrate and adjust medications as soon as the first post discharge visit based on clinical progression, vitals signs, volume status and other related organs function. I instructed patient to ask her primary care doctor to obtain [facility] record entirely to address abnormalities seen on labs and imaging that I have and have not addressed during this hospitalization, follow-up on pending blood work, imaging and pathology is if available and to follow-up on needed medical care in the outpatient setting. Time Spent with Patient Time attestation: Total time spent providing and/or coordinating discharge services: Exam Narrative Exam Narrative: [pt is awake and alert. oriented to place, time and person, No tachypnea, oxygen, morbidly obese, central obesity HEENT: [place] conjunctiva and NL buccal mucosa Neck: Supple, no tenderness Endocrine: No Thyromegaly. Vascular: No JVD or carotid bruit. Lymphatic: No cervical lymphadenopathy. Chest: Complete resolution of the bilateral crackles compared to admission state Heart RRR, no extra sound or murmur. Abd: Soft, no tenderness, no rebound and no rigidity. Increase abd girth therefore clinically I could not exclude the possibility of intra abd mass or organomegaly. LE: No cyanosis or clubbing, no varices. Complete resolution of +2 pitting edema in both legs Neuro: A A O. Nl speech, comprehension and attention. Nl and symetrical motor and tone examination through out. []] Constitutional Vital Signs, click to edit/add: Last Vital Signs Temp 98.1 F 04/27/25 07:06 Pulse 82 04/27/25 09:09 Resp 18 04/27/25 07:23 BP 119/61 04/27/25 07:06 Pulse Ox 94 L 04/27/25 09:09 O2 Del Method Room Air 04/27/25 09:09 O2 Flow Rate 2 04/27/25 00:00 DS: Data Data Completed and Pending Labs on day of discharge: Labs from last 24 hours 04/27/25 05:06 WBC 9.1 RBC 5.00 Hgb 13.6 L Hct 41.5 L MCV 83.0 MCH 27.2 MCHC 32.8 RDW 15.9 H Plt Count 273 MPV 9.9 Sodium 139 Potassium 4.5 Chloride 103 Carbon Dioxide 28.1 Anion Gap 12.4 BUN 16.0 Creatinine 0.90 Est GFR ( Amer) >60 Est GFR (Non-Af Amer) >60 BUN/Creatinine Ratio 17.8 Glucose 130 H Calcium 8.7 NT-Pro-B Natriuret Pep 638.0 Preliminary micro results at discharge 04/23/25 07:30 Blood Culture Result 2 - Preliminary Blood - Right Antecubital NO GROWTH AT 36-48 HOURS. FINAL TO FOLLOW. 04/23/25 07:24 Blood Culture Result 1 - Preliminary Blood - Left Hand NO GROWTH AT 36-48 HOURS. FINAL TO FOLLOW. Discharge Plan Discharge Disposition: Home, Self-Care Condition: Fair Discharge Medications: New atorvastatin 40 mg Tablet 40 mg PO QHS Qty: 60 1RF aspirin 81 mg Tablet,Delayed Release (Dr/Ec) 81 mg PO QD Qty: 60 1RF torsemide 10 mg tablet 10 mg PO QD Qty: 60 1RF prednisone 10 mg Tablet 10 mg PO DAILY Qty: 10 0RF spironolactone 25 mg Tablet 25 mg PO QD Qty: 60 1RF losartan 25 mg Tablet 25 mg PO QD Qty: 60 1RF doxycycline monohydrate 100 mg Capsule 100 mg PO BID Qty: 10 0RF dapagliflozin propanediol 10 mg tablet 10 mg PO QD Qty: 30 1RF Continued albuterol sulfate [Ventolin HFA] 90 mcg/actuation HFA aerosol inhaler 2 inh inhalation Q6H PRN (Reason: shortness of breath or wheezing) Qty: 6.7 0RF fluticasone propion-salmeterol [Advair HFA] 230-21 mcg/actuation HFA aerosol inhaler 2 inh INHALATION Q12H metoprolol succinate 25 mg tablet extended release 24 hr 25 mg PO DAILY ipratropium-albuterol 0.5 mg-3 mg(2.5 mg base)/3 mL solution for nebulization 3 ml INHALATION Q8H PRN (Reason: shortness of breath or wheezing) fluticasone propionate 50 mcg/actuation [place],Suspension 2 spray intranasal QD PRN (Reason: nasal congestion) tamsulosin 0.4 mg capsule 0.8 mg PO .qhs Discontinued furosemide [Lasix] 40 mg tablet 40 mg PO DAILY Print Language: Nepali Patient Instructions: COPD (Chronic Obstructive Pulmonary Disease) (DC) Activity Restrictions/Additional Instructions: I may not have addressed or treated all of your medical illnesses or the abnormal blood work or imaging studies during this hospitalization. Please ask your primary care provider the heart doctor and the lung to obtain [facility] records entirely to follow up on all of the abnormal physical, laboratory, and imaging findings that I have not addressed. Please return back to the emergency room or seek medical attention if your symptoms worsen or return. Discharging you from [facility] does not mean that your medical care ends here and now. You may still need additional monitoring, work up, investigation, and treatment plan to be handled from this point on by out patient providers including your primary care provider and specialists. Please take medication as directed Please follow-up with the heart and the lung doctor. Please follow-up with your primary care doctor. He may need to refer you to see prostate specialist. For any medication question, please contact your retail pharmacist or your primary care provider. Thank you. Forms: Portal Instructions Follow Up Appointments: Dr. Klein - Sun. 05/04 @ 9:15am [phone] Dr. Morgan (Pulmonology) - Sun. 05/13 @ 9:30am [address], [address], [place] [phone] *bring photo ID, insurance card, & copay to the appt* Dr. Castro (Cardiology) - 06/09 @ 9:40am [address], [place] [phone] Discharge Date/Time: 04/27/25 18:00
--- NOTE | 2025-04-27 09:41 | CM.NOTE ---
Discussed with pt Important Message From Medicare, pt denies questions or concerns.
[2025-04-27] MEDS: DAPAGLIFLOZIN 5 MG TABLET 10 MG PO (10:21)
--- NOTE | 2025-04-27 10:31 | CM.NOTE ---
CM in to speak with pt regarding COPD and preventative care. Pt does see Dr. Morgan and plans to stay with Dr. Morgan. Pt will have f/u scheduled prior to D/C. Pt does have home oxygen. Pt up ad del in room, no other discharge needs identified. Pt also wishes to stay with Dr. Castro, will set up appointment prior to discharge.
--- NOTE | 2025-04-27 18:18 | P.CACN_ITS ---
History of Present Illness History of Present Illness Consult date: 04/27/25 Requesting physician: Rhianna Macedo Consult reason: congestive heart failure Chief complaint: SOB, COPD, EXACERBATION Narrative: Mr. Panchal states he was admitted because water on my lungs and wasn't taking enough water pills HIs admission note states he had stopped taking entresto making him sick He felt as though he was smothering and had a URI Review of Systems ROS Constitutional Reports: fever (no) Cardiovascular Reports: chest pain (no) and palpitations (no) Respiratory Reports: shortness of breath and wheezing [facility] Medical History Moderate protein-calorie malnutrition ?E44.0 - Moderate protein-calorie malnutrition (ICD-10) Chronic HFrEF (heart failure with reduced ejection fraction) ?I50.22 - Chronic systolic (congestive) heart failure (ICD-10) Hypoxia ?R09.02 - Hypoxemia (ICD-10) URI (upper respiratory infection) ?J06.9 - Acute upper respiratory infection, unspecified (ICD-10) Acute hyponatremia ?E87.1 - Hypo-osmolality and hyponatremia (ICD-10) Congestive heart failure ?I50.9 - Heart failure, unspecified (ICD-10) COPD exacerbation ?J44.1 - Chronic obstructive pulmonary disease with (acute) exacerbation (ICD-10) Pneumonia due to COVID-19 virus ?U07.1 - COVID-19 (ICD-10) ?J12.82 - Pneumonia due to coronavirus disease 2019 (ICD-10) COVID-19 ?U07.1 - COVID-19 (ICD-10) Acute on chronic congestive heart failure ?I50.9 - Heart failure, unspecified (ICD-10) COPD exacerbation ?J44.1 - Chronic obstructive pulmonary disease with (acute) exacerbation (ICD-10) Congestive heart failure ?I50.9 - Heart failure, unspecified (ICD-10) BPH (benign prostatic hyperplasia) ?N40.0 - Benign prostatic hyperplasia without lower urinary tract symptoms (ICD-10) CAD (coronary artery disease) ?I25.10 - Atherosclerotic heart disease of [place] coronary artery without angina pectoris (ICD-10) GERD (gastroesophageal reflux disease) ?K21.9 - Gastro-esophageal reflux disease without esophagitis (ICD-10) Hypertension ?I10 - Essential (primary) hypertension (ICD-10) COPD (chronic obstructive pulmonary disease) ?J44.9 - Chronic obstructive pulmonary disease, unspecified (ICD-10) Bronchitis ?J40 - Bronchitis, not specified as acute or chronic (ICD-10) Emphysema of lung ?J43.9 - Emphysema, unspecified (ICD-10) Heart attack ?I21.9 - Acute myocardial infarction, unspecified (ICD-10) COPD exacerbation ?J44.1 - Chronic obstructive pulmonary disease with (acute) exacerbation (ICD-10) COVID-19 ?U07.1 - COVID-19 (ICD-10) Surgical History H/O sinus surgery ?Z98.890 - Other specified postprocedural states (ICD-10) H/O shoulder surgery ?Z98.890 - Other specified postprocedural states (ICD-10) H/O heart artery stent ?Z95.5 - Presence of coronary angioplasty implant and graft (ICD-10) Family History Aunt Family history of cancer Mother Family history of diabetes mellitus Brother Family history of hypertension Father Family history of hypertension Social History Within the past year, how often did you have a drink containing alcohol: never Score interpretation: A score less than 4 is consistent with normal alcohol consumption. 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 Known occupational exposures/hazards: No Highest level of school completed/degree received: high school graduate Are you now , , , , never or living with a partner: In a typical week, how many times do you talk on the telephone with family, friends, or neighbors: 3 or more times per week How often do you get together with friends or relatives: 3 or more times per week How often do you attend spiritism or baptist services: never Little interest or pleasure in doing things: not at all Feeling down, depressed, or hopeless: not at all Feel stressed/tense/nervous/anxious/difficulty sleeping: not at all Do you think of yourself as: straight/heterosexual Gender Identity: male Meds Home Medications and Allergies Home Medications ?Medication ?Instructions ?Recorded ?Confirmed ?Type tamsulosin 0.4 mg capsule 0.8 mg PO .qhs 07/22/2303/29 History albuterol sulfate 90 mcg/actuation 2 inh inhalation Q6 H PRN shortness 12/25/23 04/23/25 Rx aerosol inhaler (Ventolin HFA) of breath or wheezing # 6.7 grams fluticasone propionate 230 2 inh inhalation Q12H 04/2304/23/25 History mcg-salmeterol 21 mcg/actuation HFA inhaler (Advair HFA) fluticasone propionate 50 2 spray intranasal QD PRN na ricky 04/23/25 04/23/25 History mcg/actuation nasal congestion spray,suspension ipratropium 0.5 mg-albuterol 3 mg 3 ml inhalation Q8H PRN shortness 04/23/25 04/23/25 History (2.5 mg base)/3 mL nebulization of breath or wheezing soln metoprolol succinate 25 mg 25 mg PO DAILY 04/23/25 History tablet,extended release 24 hr aspirin 81 mg tablet,delayed 81 mg PO QD #60 tabs 06/21 Rx release atorvastatin 40 mg tablet 40 mg PO QHS #60 tabs Rx dapagliflozin propanediol 10 mg 10 mg PO QD #30 tabs 1 06/28/24 Rx tablet doxycycline monohydrate 100 mg 100 mg PO BID #10 caps 04/27/25 Rx capsule losartan 25 mg tablet 25 mg PO QD #60 tabs 5 Rx prednisone 10 mg tablet 10 mg PO DAILY #10 tabs 06/21 Rx spironolactone 25 mg tablet 25 mg PO QD #60 tabs 04/27 Rx torsemide 10 mg tablet 10 mg PO QD #60 tabs 5 Rx Allergies Allergy/AdvReac Type Severity Reaction Status Date / Time codeine AdvReac Intermediate Hallucinati Verified 04/23/25 06:50 ng Exam Constitutional Vital Signs, click to edit/add: Last Vital Signs Temp 98.1 F 04/27/25 07:06 Pulse 85 04/27/25 17:23 Resp 18 04/27/25 07:23 BP 119/61 04/27/25 07:06 Pulse Ox 94 L 04/27/25 09:09 O2 Del Method Room Air 04/27/25 09:09 O2 Flow Rate 2 04/27/25 00:00 Documenting provider has reviewed patient's vital signs: yes Common normals: no apparent distress and well nourished General appearance: cooperative [facility] Common normals: normocephalic and head/scalp atraumatic Chest Common normals: inspection of chest normal Respiratory Common normals: normal respiratory effort and no retractions Auscultation: clear to auscultation bilaterally Cardio Jugular venous distention: JVD (8 cm) and other Palpation: other (unable to palpate PMI) Rate: regular rate Rhythm: regular rhythm Heart sounds: S1 normal and S2 normal Extremity Common normals: normal to inspection, no calf tenderness and no pedal edema (pitting edema to mid gonzalez) Psych Common normals: thought process normal, cooperative, affect normal and speech normal Results Labs and Meds Lab results: CBC 04/27/25 Range/Units 05:06 WBC 9.1 (4.0-11.0) 10^3/uL RBC 5.00 (4.70-6.10) 10^6/uL Hgb 13.6 L (14.0-18.0) g/dL Hct 41.5 L (42.0-54.0) % Plt Count 273 (150-450) 10^3/uL Comprehensive Metabolic Panel 04/27/25 Range/Units 05:06 Sodium 139 (136-145) mmol/L Potassium 4.5 (3.5-5.1) mmol/L Chloride 103 (98-107) mmol/L Carbon Dioxide 28.1 (21.0-32.0) mmol/L BUN 16.0 (7.0-18.0) mg/dL Creatinine 0.90 (0.70-1.30) mg/dL Glucose 130 H (74-106) mg/dL Calcium 8.7 (8.5-10.1) mg/dL Intake and Output 04/27/25 04/27/25 04/27/25 07:59 15:59 23:59 Intake Total 1000 / 1000 Output Total 1950 / 3900 1400 / 1400 Balance -1950 / -2570 -400 / -400 Intake: Oral 1000 / 1000 Output: Urine 1949 / 3900 1400 / 1400 Imaging and Cardiology Cardiac cath: other (I reviewed recent cardiac MR report: LVEDV 270 ml and LVESV 172 ml which are both markedly enlarged with EF 36%) ECG results: other (I personally reviewed his ekgs and first suggestive of LVH. He was in normal sinus rhythm with non specific STT wave changes. Second no longer as suggestive of LVH) Assessment and Plan Assessment and Plan (1) Acute exacerbation of chronic obstructive pulmonary disease: (2) Acute combined systolic and diastolic heart failure: (3) Cardiomyopathy: Plan Mr. Panchal has a severe dilated cardiomyopathy and presented in decompensated heart failure, which medication non-use may have contributed. He seems to now understand importance of treatment adherence which he voiced to me. I would recommend he continue current medications and see Dr. Butts as soon as feasible post discharge to evaluate progress and see if further adjustments to medications are needed.
--- NOTE | 2025-04-28 13:23 | CM.DCFOLLOWU ---
Person spoke with: Kwadwo How are you feeling? Much better How is your pain? No pain Did you understand your discharge instructions? Yes, just picking them up at hospital Do you have any questions about your discharge instructions? No Were you given any prescriptions at discharge? Yes Were you able to get your prescriptions filled? Yes Do you understand how to take your medications as ordered? Yes Do you have any questions about your follow up appointment and do you plan to keep your follow up appointment? No appointments scheduled Is there anything else that you would like to discuss? No Questions/Comments/Concerns/Other:
== END 2025-04-27 18:00 | disposition home or self-care (01) | DRG 291 ==
LOC: ER 08:42 → MS 09:31
PROVIDERS: Admitting Provider Internal Medicine; Emergency Provider Emergency Medicine; PCP Family Medicine; Visit Provider Internal Medicine
DX: I11.0 Hypertensive heart disease with heart failure (principal); I50.43 Acute on chronic combined systolic (congestive) and diastolic (congestive) heart failure; J18.9 Pneumonia, unspecified organism; J96.01 Acute respiratory failure with hypoxia; J44.1 Chronic obstructive pulmonary disease with (acute) exacerbation; J44.0 Chronic obstructive pulmonary disease with (acute) lower respiratory infection; R59.0 Localized enlarged lymph nodes; J84.10 Pulmonary fibrosis, unspecified; D86.9 Sarcoidosis, unspecified; T46.5X6A Underdosing of other antihypertensive drugs, initial encounter; I42.0 Dilated cardiomyopathy; I25.10 Atherosclerotic heart disease of native coronary artery without angina pectoris; R97.20 Elevated prostate specific antigen [PSA]; K21.9 Gastro-esophageal reflux disease without esophagitis; N40.0 Benign prostatic hyperplasia without lower urinary tract symptoms; I25.2 Old myocardial infarction; Z91.128 Patient's intentional underdosing of medication regimen for other reason; Z95.5 Presence of coronary angioplasty implant and graft; Z79.82 Long term (current) use of aspirin; Z79.899 Other long term (current) drug therapy
CPT/HCPCS: 36415; 71045; 80048; 80053; 82164; 83605; 83880; 84484; 85025; 85027; 87040; 87804; 87811; 93005; 93970; 94640; 94667; 94668; 94761; 96365; 96375; 99285; J0456; J0696; J1650; J1938; J2919; J7512